=== PATIENT | male | born 1940 | race Caucasian/White ===

== ENCOUNTER 2017-09-05 15:20 | Emergency (ER) | payer MEDICARE, SELFPAY ==
[2017-09-05 15:21] VITALS: BP 136/54; PULSE 68; RESP 18; TEMP 36.6; O2SAT 96; BMI 28.4
--- NOTE | 2017-09-05 15:52 | CT_ITS ---
STUDY: CT LEFT LOWER EXTREMITY WITHOUT CONTRAST (LEFT HIP). REASON FOR EXAM: Male, 76 years old. Trauma, fall 2 weeks ago with worsening left hip pain since that time. Unable to bear weight. History of prostate cancer, hypertension and cerebrovascular accident. RADIATION DOSAGE (If Supplied By Facility): CTDIvol = ( 27.62 ) mGy, DLP = ( 924.40 ) mGycm. Thank you Individualized dose optimization techniques were used for this CT.? TECHNIQUE: Thin slice helical CT acquisition through the left hip without IV contrast. Coronal and sagittal 2-D multiplanar reformatted images were saved to the PACS archive. COMPARISON: None. FINDINGS: Intrapelvic: There is mild thickening of the wall the urinary bladder with a submucosal fatty infiltration of the wall. This may reflect sequela from prior cystitis and may also reflect a component of detrusor muscle hypertrophy. The prostate is small. Normal-appearing seminal vesicles. There is no lymphadenopathy along the left pelvic sidewall. There is a small fat filled left internal hernia. There is circumferential calcification of the distal abdominal aorta, partially circumferential of the common iliac and extra iliac arteries. There are circumferential calcifications of the proximal femoral vessels. 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 Generalized osteopenia. No suspicious lesions of the left hemipelvis or hip. There are only minimal degenerative features of the left hip joint, very minimal marginal osteophytic lipping. There is a lucency traversing a portion of the superior surface of the subcapital left femoral neck. Multiple [place] images are saved to the PACS archive. This should be regarded with substantial suspicion for nondisplaced acute fracture. Pubic rami intact. Acetabulum intact. Left iliac crest and sacrum intact. 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 CT/Extremity Lower without Contra IMPRESSION: Suspected non-displaced fracture of the left femoral neck. Follow-up noncontrast MRI of the hip is recommended for confirmation of this finding. Electronically Signed: Sadi Spangler, at 16:46 EDT Tel , Service support ,
--- NOTE | 2017-09-05 17:48 | ED.VISSUMM ---
- ER Visit Summary Date of Service: 09/05/17 Chief Complaint: Possible hip fracture History of Present Illness: The patient is a 76 M presenting for evaluation due to concern for possible hip fracture. Patient suffered a twisting injury 2 weeks ago in the shower. He reports that he has been having pain in his left hip and leg over the course of the last 2 weeks especially worse with any sort of weightbearing activities. He denies any other injuries. Patient had an x-ray at the urgent care today that showed concern for a possible nondisplaced femoral neck fracture and was sent to the emergency department. Physical Examination: Physical exam unremarkable except for examination of the patient's left lower extremity. Patient has normal range of motion of the foot ankle and knee. He actually has normal range of motion of the hip without any pain, there is some pain with weightbearing and deep palpation of the hip. No evidence of deformity normal distal pulses normal distal sensation. Test Results: CT of the hip demonstrates a possible nondisplaced left femoral neck fracture Emergency Department Course and Treatment: Patient presented due to concern for fracture. CT shows still concerned but no obvious confirmation of a nondisplaced femoral neck fracture. I discussed patient's case with Dr. Denton Mejía who recommended the patient be discharged on a walker and follow-up as an outpatient in the office. Patient was comfortable with this disposition. Disposition: Discharge Impression: 1. Nondisplaced left femoral neck fracture This note was generated with [employer] dictation software. It may contain incorrect words, spelling, and punctuation that were not noted in review of the chart prior to signing ED Disposition - Plan for ED Patient: Disposition: Home or Assisted Living Chief Complaint: Lower Extremity Injury Diagnosis: Hip fracture Instructions: Hip Fracture Surgery: Preparation Referrals: Denton Mejía MD [STAFF PHYSICIAN] - As soon as possible
--- NOTE | 2017-09-05 17:51 | ED.DCSUM_ITS ---
- ER Visit Summary Date of Service: 09/05/17 Chief Complaint: Possible hip fracture History of Present Illness: The patient is a 76 M presenting for evaluation due to concern for possible hip fracture. Patient suffered a twisting injury 2 weeks ago in the shower. He reports that he has been having pain in his left hip and leg over the course of the last 2 weeks especially worse with any sort of weightbearing activities. He denies any other injuries. Patient had an x- ray at the urgent care today that showed concern for a possible nondisplaced femoral neck fracture and was sent to the emergency department. Physical Examination: Physical exam unremarkable except for examination of the patient's left lower extremity. Patient has normal range of motion of the foot ankle and knee. He actually has normal range of motion of the hip without any pain, there is some pain with weightbearing and deep palpation of the hip. No evidence of deformity normal distal pulses normal distal sensation. Test Results: CT of the hip demonstrates a possible nondisplaced left femoral neck fracture Emergency Department Course and Treatment: Patient presented due to concern for fracture. CT shows still concerned but no obvious confirmation of a nondisplaced femoral neck fracture. I discussed patient's case with Dr. Denton Mejía who recommended the patient be discharged on a walker and follow-up as an outpatient in the office. Patient was comfortable with this disposition. Disposition: Discharge Impression: 1. Nondisplaced left femoral neck fracture This note was generated with [employer] dictation software. It may contain incorrect words, spelling, and punctuation that were not noted in review of the chart prior to signing ED Disposition - Plan for ED Patient: Disposition: Home or Assisted Living Chief Complaint: Lower Extremity Injury Diagnosis: Hip fracture Instructions: Hip Fracture Surgery: Preparation Referrals: Denton Mejía MD [STAFF PHYSICIAN] - As soon as possible
[2017-09-05 18:29] VITALS: BP 131/71; PULSE 59; RESP 18; O2SAT 96
== END 2017-09-05 18:31 | disposition home or self-care (01) ==
PROVIDERS: Emergency Provider Emergency Medicine; Family Provider Family Medicine; PCP Family Medicine
DX: S72.002A Fracture of unspecified part of neck of left femur, initial encounter for closed fracture (principal); W18.2XXA Fall in (into) shower or empty bathtub, initial encounter; Y93.9 Activity, unspecified; Y92.002 Bathroom of unspecified non-institutional (private) residence as the place of occurrence of the external cause; Y99.9 Unspecified external cause status; I10 Essential (primary) hypertension
CPT/HCPCS: 73700; 99282; A4216

== ENCOUNTER 2017-09-12 07:40 | Observation (INO) | payer MEDICARE, SELFPAY ==
--- NOTE | 2017-09-08 13:37 | EKG12_ITS ---
Test Reason : PRE OP Blood Pressure : / mmHG Vent. Rate : 065 BPM Atrial Rate : 065 BPM P-R Int : 178 ms QRS Dur : 082 ms QT Int : 432 ms P-R-T Axes : 074 057 069 degrees QTc Int : 449 ms Normal sinus rhythm Voltage criteria for left ventricular hypertrophy Abnormal ECG Confirmed by ALMA GRAHAM, MARIJA ([id number]), tape editor SLOANE PAGE ([id number]) on 09/12/2017 1:39:24 PM Referred By: Rojas Patrick Confirmed By:MARIJA MARQUEZ MD
[2017-09-08 15:10] LABS: Hematocrit 45.8 % (40-54); Hemoglobin 14.9 g/dl (13.0-16.5); Mean Corp Hgb Conc 32.5 g/gl (32-36); Mean Corpuscular Hgb 29.6 pg (27.0-32.0); Mean Corpuscular Volume 90.9 fL (80-94); Mean Platelet Vol. 9.7 fl (6.2-12.0); Platelet Count 188 K/mm3 (150-450); RBC Distribution Width CV 13.7 % (11.6-14.6); RBC Distribution Width SD 45.2 fl (35.1-43.9); Red Blood Count 5.04 M/mm3 (4.6-6.2)
[2017-09-08 15:15] LABS: Scan Indicated on CBC? Y/N NO
[2017-09-08 15:40] LABS: Anion Gap 7 (5-15); BUN 27 mg/dL (7-18); BUN/Creat Ratio 33.6 RATIO (10-20); Chloride 101 mmol/L (98-107); EST Glomerular Filtration Rate 99 mL/min (>60); Est Glom Filt Rate - Afr Amer 120 mL/min (>60); Glucose 108 mg/dL (74-106); Potassium 3.2 mmol/L (3.5-5.1); Sodium Level 138 mmol/L (136-145)
--- NOTE | 2017-09-08 16:09 | CASEMGMT ---
FREIDA CAIN PRE-OP PHONE CALL: FREIDA CAIN called and spoke with patient's regarding discharge needs after upcoming surgery. states that he has a walker and a cane and denies need for further DME. states they live in a one-story home. states that she does not think pt is set up for outpatient therapy yet, but that she is will be able to provide transportation once that is arranged. FREIDA CAIN will follow up with patient after surgery and will assist with discharge needs. Sue PIRES RN, CM
[2017-09-09 10:18] LABS: Thyroid Stim Hormone (TSH) 1.61 uIU/mL (0.358-3.74)
[2017-09-12] VITALS (16 sets, daily range): BP systolic 104–173; BP diastolic 55–90; PULSE 49–61; RESP 16–18; TEMP 36.2–36.7; O2SAT 94–99; BMI 28.8
[2017-09-12 06:59] LABS: Potassium 3.8 mmol/L (3.5-5.1)
--- NOTE | 2017-09-12 07:15 | RAD_ITS ---
STUDY: X-RAY - PELVIS AND LEFT HIP REASON FOR EXAM: Male, 76 years old. Left femoral neck fracture. Status post screw placement. TECHNIQUE: Radiological exam, left hip, 3 fluoroscopic views. COMPARISON: CT dated 09/05/2017 FINDINGS: Fluoroscopic guidance was provided during placement of left sided hip screws. The hardware is intact and alignment is satisfactory. RAD/Hip Min 2 Views (Portable) IMPRESSION: As above Electronically Signed: Rad Stark, at 16:56 EDT Tel , Service support ,
[2017-09-12] MEDS: Cefazolin 2 GM in 0.9% Normal Saline 100 ML IV (07:39)
--- NOTE | 2017-09-12 08:11 | OP.PCM_ITS ---
Report of Operation Date of Procedure: 09/12/17 Pre-Operative Diagnosis: Nondisplaced femoral neck fracture left Post-Operative Diagnosis: Same Surgery/Procedure Performed:: In situ percutaneous cannulated screw fixation left femoral neck Description of Surgical Findings:: Nondisplaced femoral neck fracture Type of Anesthesia:: Spinal Anesthesiologist: Lamberto Lewis Estimated Blood Loss (mL): 25 Fluids Replaced: See anesthesia report Description of Procedure: Implants: Henrietta 6.5 mm cannulated screw ?3 (120 mm, 110 mm, 100 mm with a 95 mm screw wasted) Surgical indications: Tylor is a 76-year-old male that sustained a nondisplaced femoral neck fracture on the left. After some deliberation as to the type of surgical management patient has elected and preferred to proceed with the above procedure Procedure description: Tylor was greeted in the preoperative area his left hip was marked with surgical marker. Preoperative antibiotics were administered. Patient was then taken to or [address] the stable condition. After adequate anesthesia was obtained and airway secured he was then placed in the fracture table supine position with a well-padded perineal post. Fluoroscopic imaging was used in a biplanar fashion to the confirm the presence of the fracture and also confirm the presence of that this fracture has remained nondisplaced. Once this was performed leg was prepped and draped in usual sterile fashion. Surgical timeout was performed and surgery was commenced. Small stab incision was then made in the lateral aspect of the thigh. The aiming device was utilized and 3 pins were then placed in a triangular fashion into the femoral neck and into subchondral bone. The position was confirmed on both AP and lateral. These were then measured separately and a drill was utilized and 3 appropriate length screws were placed. The most posterior superior screw in my opinion was slightly short this is a 95 mm therefore I did remove this in place 100 mm. Confirmation that these were not into the hip joint was performed with fluoroscopic imaging on the AP and lateral. Once this was complete the wound was irrigated IT band was approximated with 0 Vicryl subcutaneous tissue was closed with 0 Vicryl and surgical jose alberto were placed in the skin. Well-padded nonadherent dressings applied. Postoperatively: Patient will be weightbearing as tolerated with a walker for approximately 4-6 weeks. I am going to place him on observation and anticipate him being discharged home tomorrow - Complications None known - Admit VTE Documentation VTE Present on Admission: Yes VTE Mechan Device Prophylaxis: SCD's, Thigh High BRITTANY Jorgensen VTE Pharm Prophylaxis ordered?: Yes
[2017-09-12] MEDS: Lactated Ringers 1,000 ML 125 ML IV (12:09)
[2017-09-12] MEDS: Acetaminophen 500 MG Tablet 1000 MG PO (13:12)
--- NOTE | 2017-09-12 14:03 | CASEMGMT ---
Social Work Note RACHELE ALCALA updated this worker that she received message from pt's niece that she had concerns about pt returning home at discharge as pt's has cancer and may not be able to care for pt at home. RACHELE met with pt. Pt's Kaylee present and pt's son present as well. RACHELE introduced self and role at [facility]. Pt is alert and orientated x3. Pt's states pt is hard of hearing and his hearing aide batteries are dying. Pt's Kaylee answered most of the questions for assessment. Kaylee states that pt lives in a one story home with a tiny step to enter home. Kaylee states that pt was previously independent with ADLS. DME include walker. Kaylee states that she has a friend who is going to allow pt to borrow wheelchair but would like to know the cost of wheelchair and raised toilet seat. Kaylee states that she prefers [facility] for DME. RACHELE informed Kaylee that RN CM can assist in determine cost of wheelchair and raised toilet seat. Kaylee and pt confirm that the plan is for pt to return home at discharge and have outpatient therapy at [facility]. Kaylee states that she is unsure if pt is scheduled for outpatient therapy. RACHELE informed Kaylee that RN CM can confirm if pt is scheduled for outpatient therapy and if pt isn't scheduled, an appointment can be scheduled. Kaylee and pt states understanding. Kaylee states that pt has a son that will also be willing to help pt out at home. Substance Abuse Hx: Pt and Kaylee denied Mental Health Hx: Pt and Kaylee denied Plan: Pt to discharge home with outpatient therapy. RN CM to follow up with DME and confirming if outpatient therapy is scheduled. RACHELE and RN CM to follow along to assist with discharge planning. Lalita Barbosa ARMATURE WINDER, SEPARATIONS SCIENTIST
[2017-09-12] MEDS: Cefazolin 1 GM/50 ML BAG IV ×2 (15:27→22:33)
[2017-09-12] MEDS: Aspirin 325 MG Tablet PO (16:38)
[2017-09-12] MEDS: HYDROcodone Bitartrate/Apap 5/325 Tablet PO ×2 (16:41→22:33)
[2017-09-12] MEDS: Ipratropium 0.5 MG/2.5 ML SOLUTION INHALATION (19:01)
[2017-09-12] MEDS: Famotidine 20 MG Tablet PO (22:30)
[2017-09-12] MEDS: Atorvastatin Calcium 40 MG Tablet PO (22:30)
[2017-09-13 02:08] VITALS: BP 139/66; PULSE 58; RESP 16; TEMP 36.6; O2SAT 93
[2017-09-13 05:57] LABS: Hematocrit 41.3 % (40-54); Hemoglobin 13.6 g/dl (13.0-16.5); Mean Corp Hgb Conc 32.9 g/gl (32-36); Mean Corpuscular Hgb 30.3 pg (27.0-32.0); Mean Platelet Vol. 9.7 fl (6.2-12.0); Platelet Count 146 K/mm3 (150-450); RBC Distribution Width CV 13.5 % (11.6-14.6); RBC Distribution Width SD 44.3 fl (35.1-43.9); Red Blood Count 4.49 M/mm3 (4.6-6.2); White Blood Count 7.5 K/mm3 (4.4-11.0)
[2017-09-13] MEDS: HYDROcodone Bitartrate/Apap 5/325 Tablet PO (06:02)
[2017-09-13] MEDS: Levothyroxine 50 MCG Tablet PO (06:02)
[2017-09-13 06:05] LABS: Scan Indicated on CBC? Y/N NO
[2017-09-13 06:33] LABS: Anion Gap 7 (5-15); BUN 15 mg/dL (7-18); BUN/Creat Ratio 20.8 RATIO (10-20); Calcium,Total 8.3 mg/dL (8.5-10.1); Chloride 103 mmol/L (98-107); Creatinine, Serum 0.72 mg/dL (0.70-1.30); EST Glomerular Filtration Rate 112 mL/min (>60); Est Glom Filt Rate - Afr Amer 136 mL/min (>60); Estimated Creatinine Clearance 65.89 ml/min; Glucose 96 mg/dL (74-106); Potassium 3.7 mmol/L (3.5-5.1); Sodium Level 142 mmol/L (136-145)
[2017-09-13 07:11] VITALS: PULSE 66; RESP 18; O2SAT 93
[2017-09-13] MEDS: Ipratropium 0.5 MG/2.5 ML SOLUTION INHALATION (07:11)
--- NOTE | 2017-09-13 07:40 | PCM.PN.ORT ---
Subjective: Patient sitting at bedside, pain well-managed. Patient states he has had no significant pain since surgery. Feels he only has a small amount of aching in the groin. Denies chest pain, shortness breath, calf pain, nausea vomiting. No other complaints, ready for discharge home Objective: Dressings clean dry intact. Vital signs labs within normal limits. Negative signs and symptoms of DVT. Good motion of the left hip. Patient is afebrile neurovascular is otherwise intact. No respiratory distress - Physical Exam General: Alert, Oriented x3, Cooperative HEENT: PERRLA Oral: Moist Mucosa Neurological: Cranial nerves II-XII grossly intact Psych/Mental Status: Normal Affect, Alert and oriented to time, place, person, mood and affect Vital Signs Temp Pulse Resp BP Pulse Ox 97.8 F 58 L 16 139/66 H 93 09/13/17 02:08 09/13/17 02:08 09/13/17 02:08 09/13/17 02:08 09/13/17 02:08 Oxygen Flow Rate (L/min) 1 Oxygen Delivery Method Room Air Weight: 93.6 kg Body Mass Index (BMI) 28.8 Intake and Output for Last 24 Hours 09/11/17 09/12/17 09/13/17 23:59 23:59 23:59 Intake Total 1959 990 / 990 Output Total 200 / 200 Balance 1959 790 / 790 Laboratory Tests Past 24 Hrs 09/12/17 09/13/17 09/13/17 06:35 05:15 05:15 WBC 7.5 RBC 4.49 L Hgb 13.6 Hct 41.3 MCV 92.0 MCH 30.3 MCHC 32.9 RDW 13.5 RDW Differential 44.3 H Plt Count 146 L MPV 9.7 Sodium 142 Potassium 3.7 Chloride 103 Carbon Dioxide 32.0 Anion Gap 7 BUN 15 Creatinine 0.72 Estim Creat Clear Calc 65.89 Est GFR (MDRD) Af Amer 136 Est GFR (MDRD) Non-Af 112 BUN/Creatinine Ratio 20.8 H Glucose 96 Calcium 8.3 L Blood Type A POSITIVE Antibody Screen NEGATIVE Medical Necessity - Tobacco Use Smoking Status: Former smoker Tobacco Use: Cigarettes Assessment/Plan All Active Problems (Last Updated 06/09/17 @ 10:19 by Gloria Boles) Prostate CA (Acute) Stroke (Acute) FREEDMAN (dyspnea on exertion) (Acute) Hoarseness (Acute) left vocal cord paralysis (Acute) Status post percutaneous pinning of a nondisplaced left femoral neck fracture Plan 1. Discontinue Vicodin. Will continue Tylenol extra strength 1000 mg q. 8, Ultram 50 mg 1 or 2 p.o. every 6 hours severe pain. 2. Begin physical therapy today. Weight-bear as tolerated with walker. 3. Aspirin 325 mg 1 p.o. every 12 hours ?30 days for postop DVT prophylaxis 4. Follow-up with Dr. Patrick as scheduled 5. Discharge home today, and continue physical therapy at [facility] [place]
--- NOTE | 2017-09-13 07:50 | PCM.DC.ORTHO ---
Discharge Diet: No Restrictions Discharge Activity: May Not Drive, May Shower, Use Walker May shower in (days): 3 Ice area for (Minutes): 20 - Every hour while awake. Weight Bearing Status: Weight bearing as tolerated Keep extremity elevated above heart level: Operative Extremity Call your doctor if your incision/area has: Continuous Slow Oozing, Sudden Increased Bleeding, Increased Pain/ Swelling, Increased Redness, Foul Smelling Discharge Call your doctor if you observe: Fever of 101 or Higher, Coldness, Increased Pain, Numbness or Tingling, Change in Color, Calf discomfort Allergies/Adverse Reactions: Allergies aspirin [From Percodan] Allergy (Verified 09/09/17 08:39) Other oxycodone [From Percodan] Allergy (Verified 09/09/17 08:39) Other Medications to take at Discharge albuterol sulfate HFA 90 mcg/actuation aerosol inhaler 2 puff INHALATION Q6H PRN 06/09/17 amlodipine 10 mg tablet 10 mg PO QDAY 90 Days #90 tab 06/09/17 atenolol 50 mg tablet 50 mg PO QDAY 90 Days #90 tab 06/09/17 atorvastatin 40 mg tablet 40 mg PO QDAY 06/09/17 hydrochlorothiazide 25 mg tablet 25 mg PO QDAY 06/09/17 levothyroxine 50 mcg tablet 50 mcg PO QDAY 90 Days #90 tab 06/09/17 nitroglycerin 0.3 mg sublingual tablet 0.3 mg SUBLINGUAL Q5-15M PRN 06/09/17 potassium chloride ER 20 mEq tablet,extended release(part/cryst) 20 meq PO QDAY 90 Days #90 tab 06/09/17 ranitidine 150 mg tablet 150 mg PO Q12H tab 06/09/17 spironolactone 25 mg tablet 25 mg PO QDAY 90 Days #90 tab 06/09/17 Tiotropium [place] [Spiriva] 18 mcg IH DAILY 09/09/17 Acetaminophen [Tylenol] 1,000 mg PO Q8 #90 tab 09/13/17 Aspirin 325 mg PO BIDCM #60 tab 09/13/17 traMADol [Ultram] 100 mg PO Q6H PRN PRN 7 Days #90 tab 09/13/17 The following prescriptions were given: traMADol [Ultram] 100 mg PO Q6H PRN PRN 7 Days #90 tab PRN Reason: Moderate Pain (4-5/10) Acetaminophen [Tylenol] 1,000 mg PO Q8 #90 tab Aspirin 325 mg PO BIDCM #60 tab Primary Care Physician: Shayne Moncada MD [Primary Care Provider] - Test Results: Test results from this visit will be discussed in further detail at your follow-up appointment, if applicable. Please Follow Up With: Rojas Patrick, DO When: see pink sheet
[2017-09-13 08:00] VITALS: BP 131/68; PULSE 57; RESP 18; TEMP 37.2; O2SAT 97
[2017-09-13] MEDS: Famotidine 20 MG Tablet PO (08:54)
[2017-09-13] MEDS: Spironolactone 25 MG Tablet PO (08:54)
[2017-09-13] MEDS: Atenolol 50 MG Tablet PO (08:54)
[2017-09-13] MEDS: amLODIPine 10 MG Tablet PO (08:54)
[2017-09-13] MEDS: Aspirin 325 MG Tablet PO (08:55)
[2017-09-13] MEDS: hydroCHLOROthiazide 25 MG Tablet PO (08:56)
[2017-09-13] MEDS: traMADol 50 MG Tablet 100 MG PO (10:27)
[2017-09-13 11:31] VITALS: BP 138/70; PULSE 58; RESP 18; TEMP 36.8; O2SAT 98
== END 2017-09-13 11:38 | disposition home or self-care (01) ==
LOC: MS3 08:59 → SDC 08:59
PROVIDERS: Admitting Provider Orthopaedic Surgery; Family Provider Family Medicine; PCP Family Medicine; Visit Provider Orthopaedic Surgery
PROC: (CPT 27235; principal; 2017-09-12 06:45)
DX: S72.002A Fracture of unspecified part of neck of left femur, initial encounter for closed fracture (principal); W18.40XA Slipping, tripping and stumbling without falling, unspecified, initial encounter; Y93.E1 Activity, personal bathing and showering; Y92.9 Unspecified place or not applicable; Z87.891 Personal history of nicotine dependence; Z79.899 Other long term (current) drug therapy; Z79.82 Long term (current) use of aspirin; M19.90 Unspecified osteoarthritis, unspecified site; I25.10 Atherosclerotic heart disease of native coronary artery without angina pectoris; H91.90 Unspecified hearing loss, unspecified ear; I10 Essential (primary) hypertension; E78.00 Pure hypercholesterolemia, unspecified; G47.30 Sleep apnea, unspecified; Z86.711 Personal history of pulmonary embolism; Z95.1 Presence of aortocoronary bypass graft
CPT/HCPCS: 01220; 27235; 36415; 73501; 73502; 76000; 80048; 84132; 84443; 85027; 86850; 86900; 93005; 94640; 96361; 96365; 96366; 97162; 97165; 99218; C1713; J7120; G0378; G0379

== ENCOUNTER → 2018-01-26 09:13 | Outpatient (CLI) | payer MEDICARE, SELFPAY ==
[2018-01-12 14:15] VITALS: BMI 28.8
[2018-01-26 09:52] VITALS: PULSE 62; PULSE 68; PULSE 72; PULSE 81; PULSE 85; PULSE 90; PULSE 91; PULSE 92; O2SAT 91; O2SAT 92; O2SAT 94; O2SAT 96; O2SAT 97
--- NOTE | 2018-01-27 10:27 | PCM.PSN.6M ---
PSN 6 Minute Walk Test - 6 Minute Walk Test 6 Minute Walk Test: 6 Minute Walk Test PSN:6-Minute Walk Test Start: 01/26/18 09:51 Freq: Status: Active Protocol: [id number] Document 01/26/18 09:52 TAYLOR (Rec: 01/26/18 09:57 TAYLOR [id number]) 6 Minute Walk Test Date Performed 01/26/18 Time Performed 09:30 Height 5 ft 11 in Weight: 200 lb Weight in Pounds 200.[address]: Davide Riley Assistive device used: Cane Pre-test Oxygen Delivery Method Room Air Pulse Ox (%) 97 Pulse Rate (60-100 beats/min) 62 Dyspnea David Scale (0-10) 0 Exertion David Scale (6-20) 6 1st minute Oxygen Delivery Method Room Air Pulse Ox (%) 96 Pulse Rate (60-100 beats/min) 72 2nd minute Oxygen Delivery Method Room Air Pulse Ox (%) 94 Pulse Rate (60-100 beats/min) 81 3rd minute Oxygen Delivery Method Room Air Pulse Ox (%) 92 Pulse Rate (60-100 beats/min) 85 4th minute Oxygen Delivery Method Room Air Pulse Ox (%) 91 Pulse Rate (60-100 beats/min) 90 5th minute Oxygen Delivery Method Room Air Pulse Ox (%) 91 Pulse Rate (60-100 beats/min) 91 6th minute Oxygen Delivery Method Room Air Pulse Ox (%) 91 Pulse Rate (60-100 beats/min) 92 Dyspnea David Scale (0-10) 4 Exertion David Scale (6-20) 16 Post-test Oxygen Delivery Method Room Air Pulse Ox (%) 97 Pulse Rate (60-100 beats/min) 68 Full Laps Walked 12 Partial Lap, Number of Tiles Walked 20 Total Distance Walked (ft) 728 - Interpretation Interpretation: The patient ambulated 720 feet over the course of 6 minutes beginning on room air with use of a cane. Pretesting oxygen saturation was noted to be 97% on room air. With ambulation, the lynne oxygen saturation was 91%. This represents a significant exertional oxygen desaturation. - Recommendations Recommendations: There is no indication for the use of supplemental oxygen at this time. However, close interval follow-up is recommended, given the degree of oxygen desaturation noted during this study.
== END ==
PROVIDERS: Family Provider Family Medicine; PCP Family Medicine; Referring Provider Nurse Practitioner Acute Care; Visit Provider Nurse Practitioner Acute Care
DX: R06.09 Other forms of dyspnea (principal)
CPT/HCPCS: 94618

== ENCOUNTER → 2018-02-01 11:04 | Outpatient (CLI) | payer MEDICARE, SELFPAY ==
[2018-01-12 14:15] VITALS: BMI 28.8
--- NOTE | 2018-02-01 14:33 | PFTCOMP ---
COMPLETE PULMONARY FUNCTION TEST INTERPRETATION Brief HPI: Patient is a 76 year old male, currently under the care of myself, who presents to [facility] for complete pulmonary function tests secondary to diagnosis of dyspnea. Respiratory therapist reports good effort and reproducible results. Interpretation: Forced expiration spirometry shows a severe large airways obstructive ventilatory defect with an FEV1 of 48% predicted. There is no significant bronchodilator response by strict ATS criteria. Spirograms are of good quality and plateau slowly, indicating slowly emptying areas of the lungs. The respiratory flow volume loop shows decreased expiratory flow rates at all lung volumes consistent with airway obstruction. Lung volumes by body plethysmography show a decreased total lung capacity at 5.13 L, 77% predicted. FRC and RV are elevated out of proportion, but do not reach clinical significance by ATS criteria. Diffusion capacity by carbon monoxide is normal at 71% predicted. The airway resistance is elevated. No previous pulmonary function tests were available for review. 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
== END ==
PROVIDERS: Family Provider Family Medicine; PCP Family Medicine; Referring Provider Nurse Practitioner Acute Care; Visit Provider Nurse Practitioner Acute Care
DX: R06.09 Other forms of dyspnea (principal)
CPT/HCPCS: 94060; 94726; 94729

== ENCOUNTER → 2018-02-23 13:05 | Outpatient (CLI) | payer MEDICARE, SELFPAY ==
[2018-02-15 10:33] VITALS: BMI 28.8
--- NOTE | 2018-02-23 13:10 | ECHOD_ITS ---
Reason For Study: DYSPNEA/SOB Procedure This was a 2D Doppler, Color Flow transthoracic echocardiogram. The study was technically difficult. Exam performed in department. Left Ventricle Normal LV size. Left ventricular systolic function is normal. The estimated ejection fraction is 55 %. Transmitral diastolic flow velocities suggest moderate (stage 2) diastolic dysfunction (pseudonormal pattern). No regional wall motion abnormalities noted. Right Ventricle Normal RV size. Normal systolic function. Atria The left atrium is mildly enlarged. Normal right atrium. No doppler evidence for ASD. Mitral Valve There is mild mitral annular calcification. Normal mitral valve. Trivial mitral valve insufficiency. Tricuspid Valve Normal tricuspid valve. Trivial tricuspid valve insufficiency. Right ventricular systolic pressure estimated to be 29 mmHg. Aortic Valve Trisinus/trileaflet aortic valve. Normal aortic valve. Pulmonic Valve The pulmonic valve is not well visualized. Great Vessels Normal sized aortic root. Pericardium/Pleural No pericardial effusion. MMode/2D Measurements & Calculations LVIDd: 4.8 cm IVSd: 1.3 cm Ao root diam: 3.6 cm LVIDs: 3.2 cm LVPWd: 1.0 cm RVDd: 3.7 cm FS: 32.3 % LAV(MOD-bp): 58.7 ml LVAd ap4: 31.5 cm2 SV(MOD-sp4): 58.4 ml LAV(MOD-bp) Indexed: 27.3 ml/m2 EDV(MOD-sp4): 101.6 ml LAV(MOD-sp2): 62.1 ml EDV(sp4-el): 107.5 ml LAV(MOD-sp4): 52.9 ml LVAs ap4: 18.4 cm2 ESV(MOD-sp4): 43.2 ml ESV(sp4-el): 43.9 ml EF(MOD-sp4): 57.5 % EF(sp4-el): 59.2 % SV(sp4-el): 63.6 ml LA A4 area: 19.4 cm2 LA dimension(2D): 4.5 cm RA A4 area: 10.5 cm2 Time Measurements MV dec time: 0.27 sec Doppler Measurements & Calculations MV E max dung: 84.5 cm/sec Lat Peak E' Dung: 8.8 cm/sec Med Peak E' Dung: 7.2 cm/sec MV A max dung: 78.8 cm/sec E/E' lat: 9.6 E/E' med: 11.7 MV E/A: 1.1 Ao V2 max: 113.2 cm/sec LV V1 max: 108.8 cm/sec PA V2 max: 102.2 cm/sec Ao max P.1 mmHg LV V1 max P.7 mmHg PI end-d dung: 105.1 cm/sec TR max dung: 254.4 cm/sec TR max P.9 mmHg Interpretation Summary The study was technically difficult. Left ventricular systolic function is normal. The estimated ejection fraction is 55 %. The left atrium is mildly enlarged. There is mild mitral annular calcification. Trivial mitral valve insufficiency. Trivial tricuspid valve insufficiency. Right ventricular systolic pressure estimated to be 29 mmHg. Transmitral diastolic flow velocities suggest diastolic dysfunction (pseudonormal pattern). Ordering Physician: Shanon Crooks Referring Physician: DUNCAN ZAIDI Performed By: Alejandra Tierney RDCS
--- OUTSIDE RECORDS SUMMARY | 2018-04-30 06:05 | XMS RPT_ITS ---
:1940 Author Organization OHIP Support Name Relationship Address Phone MARITO PEDERSEN Unavailable [address] + [place] [address] R Unavailable Unavailable Unavailable PEDERSEN, MARITO Unavailable [address] + [place] [address] R Unavailable Unavailable Unavailable PEDERSEN, MARITO Unavailable [address] + [place] [address] R Unavailable Unavailable Unavailable PEDERSEN, MARITO Unavailable [address] + [place] [address] R Unavailable Unavailable Unavailable PEDERSEN, MARITO Unavailable [address] + [place] [address] R Unavailable Unavailable Unavailable PEDERSEN, MARITO Unavailable [address] + [place] [address] R Unavailable Unavailable Unavailable PEDERSEN, MARITO Unavailable [address] + [place] [address] R Unavailable Unavailable Unavailable PEDERSEN, MARITO Unavailable [address] + [place] [address] R Unavailable Unavailable Unavailable PEDERSEN, MARITO Unavailable [address] + [place] [address] R Unavailable Unavailable Unavailable PEDERSEN, MARITO Unavailable [address] + [place] [address] R Unavailable Unavailable Unavailable PEDERSEN, MARITO Unavailable [address] + [place] [address] R Unavailable Unavailable Unavailable PEDERSEN, MARITO Unavailable [address] + [place] [address] R Unavailable Unavailable Unavailable Care Team Providers Name Role Phone PADDY ZAIDI Attending Unavailable JENNIFER WILCOX (JI-Con) Referring Unavailable Daksha, Shanon Attending Unavailable Crooks, Shanon Referring Unavailable Shanetaelizabeth, Duncan Primary Care Unavailable Crooks, Shanon Attending Unavailable Crooks, Shanon Referring Unavailable Shanetaelizabeth, Duncan Primary Care Unavailable Jose Zapata D.O. Attending Unavailable Crooks, Shanon Referring Unavailable Crooks, Shanon Attending Unavailable Duncan Zaidi Referring Unavailable Davide Riley Attending Unavailable Crooks, Shanon Referring Unavailable Crooks, Shanon Attending Unavailable Crooks, Shanon Referring Unavailable Kontak, Duncan Primary Care Unavailable Gloria Boles Attending Unavailable Crooks, Shanon Attending Unavailable Shanetaelizabeth, Duncan Referring Unavailable Kontak, Duncan Primary Care Unavailable Lex Contreras Attending Unavailable Rojas Patrick Attending Unavailable Rojas Patrick Referring Unavailable Shanetaelizabeth, Duncan Primary Care Unavailable Yvon Medrano Consulting Unavailable Rojas Patrick Admitting Unavailable Lito Marquez Attending Unavailable Rojas Patrick Referring Unavailable Shanon Crooks Attending Unavailable Coral, Duncan Referring Unavailable PROBLEMS PROBLEMS DATE TYPE CONDITION / CODE ATTENDING STATUS SOURCE 02/23/2018 Unknown R06.09 - Other forms Crooks, Active [place] of dyspnea / [facility] R06.09(ICD-10) Hospital Repository 01/12/2018 Unknown Z23 - Encounter for Daksha, Active [place] immunization / [facility] Z23(ICD-10) Hospital Repository 09/13/2017 Unknown G89.18 - Other acute Rojas Patrick Active [place] postprocedural pain / [facility] G89.18(ICD-10) Hospital Repository 10/19/2017 Unknown R94.31 - Abnormal [place], Active [place] electrocardiogram [facility] [ECG] [EKG] / Hospital R94.31(ICD-10) Repository 10/19/2017 Unknown 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[place], 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 / I25.10(ICD-10) 10/19/2017 Unknown I10 - Essential [place], Active [place] (primary) hypertension [facility] / I10(ICD-10) Hospital Repository 09/05/2017 Active Unspecified injury of NA Active [place] left lower leg, Clinic Main initial encounter / [place] S89.92XA(ICD-10) Repository PROCEDURES PROCEDURES No Procedure Records FoundRESULTS RESULTS ECHOCARDIOGRAM COMPLETE Observed: 02/23/2018 Status: F Source: [place] 8:13 PM [facility] REPOSITORY [facility] Cardiovascular Services [address] [place] [address] Echo Complete 02/23/18 1318 MR#: [id number] Acct: [id number] Name: ARTURO PEDERSEN Rep #: [id number] : 1940 77 From: Lito Marquez MD Attending Dr: Shanon Crooks EXTERNAL AUDITOR Status: REG CLI Ordering Dr: Shanon Crooks EXTERNAL AUDITOR-C Date: 02/23/18 Location: [facility] Sex: M C Admitted: Reason For Study: DYSPNEA/SOB Procedure This was a 2D Doppler, Color Flow transthoracic echocardiogram. The study was technically difficult. Exam performed in department. Left Ventricle Normal LV size. Left ventricular systolic function is normal. The estimated ejection fraction is 55 %. Transmitral diastolic flow velocities suggest moderate (stage 2) diastolic dysfunction (pseudonormal pattern). No regional wall motion abnormalities noted. Right Ventricle Normal RV size. Normal systolic function. Atria The left atrium is mildly enlarged. Normal right atrium. No doppler evidence for ASD. Mitral Valve There is mild mitral annular calcification. Normal mitral valve. Trivial mitral valve insufficiency. Tricuspid Valve Normal tricuspid valve. Trivial tricuspid valve insufficiency. Right ventricular systolic pressure estimated to be 29 mmHg. Aortic Valve Trisinus/trileaflet aortic valve. Normal aortic valve. Pulmonic Valve The pulmonic valve is not well visualized. Great Vessels Normal sized aortic root. Pericardium/Pleural No pericardial effusion. MMode/2D Measurements AND Calculations LVIDd: 4.8 cm IVSd: 1.3 cm Ao root diam: 3.6 cm LVIDs: 3.2 cm LVPWd: 1.0 cm RVDd: 3.7 cm FS: 32.3 % LAV(MOD-bp): 58.7 ml LVAd ap4: 31.5 cm2 SV(MOD-sp4): 58.4 ml LAV(MOD-bp) Indexed: 27.3 ml/m2 EDV(MOD-sp4): 101.6 ml LAV(MOD-sp2): 62.1 ml EDV(sp4-el): 107.5 ml LAV(MOD-sp4): 52.9 ml LVAs ap4: 18.4 cm2 ESV(MOD-sp4): 43.2 ml ESV(sp4-el): 43.9 ml EF(MOD-sp4): 57.5 % EF(sp4-el): 59.2 % SV(sp4-el): 63.6 ml LA A4 area: 19.4 cm2 LA dimension(2D): 4.5 cm RA A4 area: 10.5 cm2 Time Measurements MV dec time: 0.27 sec Doppler Measurements AND Calculations MV E max dung: 84.5 cm/sec Lat Peak E' Dung: 8.8 cm/sec Med Peak E' Dung: 7.2 cm/sec MV A max dung: 78.8 cm/sec E/E' lat: 9.6 E/E' med: 11.7 MV E/A: 1.1 Ao V2 max: 113.2 cm/sec LV V1 max: 108.8 cm/sec PA V2 max: 102.2 cm/sec Ao max P.1 mmHg LV V1 max P.7 mmHg PI end-d dung: 105.1 cm/sec TR max dung: 254.4 cm/sec TR max P.9 mmHg Interpretation Summary The study was technically difficult. Left ventricular systolic function is normal. The estimated ejection fraction is 55 %. The left atrium is mildly enlarged. There is mild mitral annular calcification. Trivial mitral valve insufficiency. Trivial tricuspid valve insufficiency. Right ventricular systolic pressure estimated to be 29 mmHg. Transmitral diastolic flow velocities suggest diastolic dysfunction (pseudonormal pattern). Ordering Physician: Shanon Crooks Referring Physician: DUNCAN ZAIDI Performed By: Alejandra Tierney RDCS 02/23/182012 Date Lito Marquez MD CC: Shanon Crooks; Duncan Zaidi MD Date Dictated: 02/23/18 1318 Date Transcribed: 02/23/182012 Home Office Claim Specialist: Signed PULMONARY VISIT REPORT Observed: 02/16/2018 Status: F [facility] [place] [facility] [place] [address] [place] [address] OFFICE VISIT Date of Service: 02/15/18 MR#: [id number] Acct: [id number] Name: ARTURO PEDERSEN Rep #: [id number] : 1940 Provider: Shanon Crooks Age/Sex: 77/M Location: [facility].PMW Status: Signed Assessment AND Plan 1. FREEDMAN (dyspnea on exertion) R06.09 Plan Unchanged, suspect Pulmonary Hypertension. Shortness of breath on exertion is unexplained by his PFTs, walking oximetry borderline. Plan to obtain an echocardiogram before follow-up with Dr. Riley which is scheduled for April 19, 2018. Obtain echo to evaluate for pulmonary hypertension. Patient has not followed up with cardiology in over 3 years. Education on PLM HTN diet provided. Orders Orders: 2. Stage 2 moderate COPD by GOLD classification J44.9 Plan Does not appear to be an exacerbation of COPD today. No need for prednisone or antibiotic. Continue current maintenance medication. No additional testing at this time. Contact the office for any new or worsening symptoms. An acute visit and typically be arranged within 1-2 days. Follow-up as previously scheduled. 3. Central sleep apnea G47.31 Plan Patient is using and benefiting from Pap therapy. No indication for titration study at this time. Continue to encourage weight loss. Contact the office for any new or worsening symptoms in the meantime. Follow-up as previously scheduled. HPI 1 M FU: Chief Complaint: Shortness of breath on exertion HPI Comments Details: This is a 77 year old M, currently under the care of Duncan Zaidi, here today to review test results. He is ambulatory, currently on room air and accompanied by his . He has not been in the ED or urgent care for respiratory illnesses since his last office visit. He is not required antibiotics or prednisone for a breathing problems. He is compliant with Pap therapy 8-10 hours every night. Denies any difficulties with it, has noticed a decrease in his need for naps. He has only one episode of nocturia nightly at this point. He is feeling more rested with use. He continues to experience shortness of breath on exertion. He reports occasional lower extremity edema, not daily. He denies any cough, sputum production or hemoptysis. Occasionally has some clear to white nasal drainage, most frequently occurs after eating. He denies any fever, chills or body aches. He admits that he is not watching his sodium intake. I personally reviewed the tests/images/tracings which showed: Complete Pulmonary Function test were preformed on February 01, 2018, and showed FVC of 51 % of predicted, FEV1 of 46 % of predicted, FEV1/FVC ratio of 64 %, TLC of 77 % of predicted, RV of 95 % of predicted, DLCO 71% predicted. The test was interpreted to be consistent with irreversible severe mixed ventilatory defect, with no preserved significant response to bronchodilators and a diffusing capacity. Pulmonary stress test was completed on January 26, 2018, and did not show a drop in saturation below 89%, which suggests no requirement of supplemental oxygen on ambulation at this time. The patient was able to eat on a total of 720 feet over the course of 6 minutes. Intake Vital Signs02/15/18 Body Mass Index (BMI) 28.8 02/15/18 Height 5 ft 11 in 02/15/18 Weight: 208 lb Intake Visit Reasons: 1 M Talent Acquisition Lead Required: No Accompanied by: Is patient in pain?: No Allergies aspirin [From Percodan] Allergy (Verified 02/15/18 10:24) Other oxycodone [From Percodan] Allergy (Verified 02/15/18 10:24) Other Medications amlodipine 10 mg tablet 10 mg PO QDAY 90 Days #90 tab 06/09/17 [History Confirmed 02/15/18] atenolol 50 mg tablet 50 mg PO QDAY 90 Days #90 tab 06/09/17 [History Confirmed 02/15/18] atorvastatin 40 mg tablet 40 mg PO QDAY 06/09/17 [History Confirmed 02/15/18] hydrochlorothiazide 25 mg tablet 25 mg PO QDAY 06/09/17 [History Confirmed 02/15/18] levothyroxine 50 mcg tablet 50 mcg PO QDAY 90 Days #90 tab 06/09/17 [History Confirmed 02/15/18] nitroglycerin 0.3 mg sublingual tablet 0.3 mg SUBLINGUAL Q5- 15M PRN 06/09/17 [History Confirmed 02/15/18] potassium chloride ER 20 mEq tablet,extended release(part/cryst) 20 meq PO QDAY 90 Days #90 tab 06/09/17 [History Confirmed 02/15/18] ranitidine 150 mg tablet 150 mg PO Q12H tab 06/09/17 [History Confirmed 02/15/18] spironolactone 25 mg tablet 25 mg PO QDAY 90 Days #90 tab 06/09/17 [History Confirmed 02/15/18] Acetaminophen [Tylenol] 1,000 mg PO Q8 #90 tab 09/13/17 [Rx Confirmed 02/15/18] Aspirin 325 mg PO BIDCM #60 tab 09/13/17 [Rx Confirmed 02/15/18] traMADol [Ultram] 100 mg PO Q6H PRN PRN 7 Days #90 tab 09/13/17 [Rx Confirmed 02/15/18] albuterol sulfate HFA 90 mcg/actuation aerosol inhaler 2 puff INHALATION Q4H PRN g 01/12/18 [History Confirmed 02/15/18] PFSH Medical History Prostate CA (Acute) Stroke (Acute) FREEDMAN (dyspnea on exertion) (Acute) Central sleep apnea (Chronic) Stage 2 moderate COPD by GOLD classification (Chronic) HTN (hypertension) (Chronic) Hoarseness (Acute) left vocal cord paralysis (Acute) Surgical History Cataract extraction status (Resolved) History of hip replacement (Resolved) History of open heart surgery (Resolved) Social History Smoking Status: Former smoker quit date: 02/08/92 pack-years: 37 alcohol intake: never substance use type: does not use Review of Systems Const CONSTITUTIONAL: Negative anorexia, body ache, chills, daytime sleepiness, fever(s), night sweats, oral thrush, stops breathing during sleep, weight loss, sleeping in chair, fatigue, weight loss, weight gain, frequent colds, seasonal allergies, other, headache(s) or orthopnea EETM Ear Nose Throat Mouth: Positive hearing normal and nasal discharge; negative hard of hearing, hoarseness, dry mouth in morning, change in vision, itchy eyes, eye pain, swallowing Difficulty, ear pain, nose bleed, headache(s), mouth pain, nasal congestion, sinus pain, sinus pressure, sore throat or other Cardio Cardiovascular: Positive edema Location: lower extremity; negative chest pain, chest pain at rest, chest pain with activity, irregular heart rhythm, shortness of breath when lying down, palpitations or other Resp Respiratory: Positive as per HPI, shortness of breath shortness of breath: Positive with activity and inhalers; negative pain with cough, wheezing, chest congestion, cough, chest tightness, pain on inspiration, increase use of rescue inhalers, snoring, apnea or other Gastro Gastrointestional: Negative bloody stools, change in appetite, difficulty swallowing, reflux, hematemesis, melena stool, loose stool, constipation or other Genitourinary: Positive nocturia; negative blood in urine, pain with urination or other Musc Musculoskeletal: Negative body pain, back pain, neck pain or other Skin/Breast Skin/Breast: Negative dry skin, itching, rash, unusual bruising, breast lump or other Neuro Neurological: Negative restless legs, confusion, weakness or other Psych Psychocological: Negative abnormal sleep pattern, anxiety, thoughts of hurting self/others, hopelessness or other Lymph Lymphatic: Negative easy bleeding, easy bruising, swollen lymph nodes or other Exam Const Constitutional: Positive conversant, cooperative, in no acute respiratory distress, healthy appearing, well developed, well nourished and good hygiene Head Head: Positive normocephalic and atraumatic; negative cyanosis of lips/distal nose Eyes Eye: Positive clear conjunctiva; negative nystagmus or scleral abnormality Ears Ear: Positive hearing normal and external ears normal; negative hard of hearing Nose Nose: Positive external nose normal and no nasal discharge; negative epistaxis Mouth Mouth: Positive oral mucosae normal and no lesions; negative malodorous breath or oral thrush present Neck Neck: Positive normal visual inspection, full ROM and trachea midline; negative lymphadenopathy, JVD or tender Chest Wall Chest: Positive normal inspection of the chest and symmetric chest movement; negative increased A/P diameter Resp lung sounds: Positive clear to auscultation, diminished, normal expiratory time and normal respiratory effort; negative wheezes, rhonchi, rales, dullness to percussion or wheeze present on forced exhalation Cardio Cardiac: Positive regular rate, regular rhythm, S1 normal and S2 normal GI GI: Positive normal to inspection; negative distended Genitourinary: Positive deferred Musc Musculoskeletal: Positive steady gait and ROM normal; negative kyphosis or scoliosis Skin Pulmonary Skin Exam: Positive intact; negative rash Pulses Pulse: Yes pulses normal x4 extremities Extremities Extremities: Yes capillary refill normal, No clubbing, No cyanosis, Yes edema Location: lower extremity location: Bilateral pitting trace Neuro Neurologic: Yes conversant, Yes no focal neuro deficits, Yes normal concentration, Yes understands questions, Yes cooperative, Yes normal cognition, Yes normal coordination, No tremor Lymph Lymphatic: No lymphadenopathy, No tenderness, No cervical adenopathy Psych Appearance: Positive grossly normal, eye contact and well kempt Mental Status: Positive mental status grossly normal Mood: Positive congruent mood Affect: Positive normal affect Coding Level of Care Code Off vis,est,level 4 Diagnoses FREEDMAN (dyspnea on exertion) R06.09 Stage 2 moderate COPD by GOLD classification J44.9 Central sleep apnea G47.31 02/16/18 1441 <Electronically signed by Shanon Crooks NP-C> Date Shanon Crooks NP-C Cosigner Signature: Date (if applicable) CC: Duncan Zaidi MD PULMONARY FUNCTION Observed: 02/02/2018 Status: F Source: [place] REPORT COMP 5:50 AM [facility] REPOSITORY [facility] Pulmonary Services/Neurology [address] [place] [address] [place] [address] MR#: [id number] Acct: [id number] Name: ARTURO PEDERSEN Rep #: [id number] : 1940 77 From: Davide Riley MD Referring Dr: Shanon Crooks NP Status: REG CLI Ordering Dr: Date: Location: PSN Sex: M C COMPLETE PULMONARY FUNCTION TEST INTERPRETATION Brief HPI: Patient is a 76 year old male, currently under the care of myself, who presents to [facility] for complete pulmonary function tests secondary to diagnosis of dyspnea. Respiratory therapist reports good effort and reproducible results. Interpretation: Forced expiration spirometry shows a severe large airways obstructive ventilatory defect with an FEV1 of 48% predicted. There is no significant bronchodilator response by strict ATS criteria. Spirograms are of good quality and plateau slowly, indicating slowly emptying areas of the lungs. The respiratory flow volume loop shows decreased expiratory flow rates at all lung volumes consistent with airway obstruction. Lung volumes by body plethysmography show a decreased total lung capacity at 5.13 L, 77% predicted. FRC and RV are elevated out of proportion, but do not reach clinical significance by ATS criteria. Diffusion capacity by carbon monoxide is normal at 71% predicted. The airway resistance is elevated. No previous pulmonary function tests were available for review. 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 02/02/18 0550 <Electronically signed by Davide Riley MD> Date Davide Riley MD CC: Davide Riley MD; Shanon Crooks; Duncan Zaidi MD Date Dictated: 02/01/18 1433 Date Transcribed: 02/01/18 143 Home Office Claim Specialist: NICOLE Signed 6 MINUTE WALK TEST Observed: 01/27/2018 Status: F Source: [place] 10:28 AM [facility] REPOSITORY [facility] Pulmonary Services/Neurology [address] [place] [id number] MR#: [id number] Acct: [id number] Name: ARTURO PEDERSEN Rep #: [id number] : 1940 77 From: Jose Zapata DO Referring Dr: Shanon Crooks NP Date: Ordering Dr: Sex: M C Location: PSN PSN 6 Minute Walk Test - 6 Minute Walk Test 6 Minute Walk Test: 6 Minute Walk Test PSN:6-Minute Walk Test Start: 01/26/18 09:51 Freq: Status: Active Protocol: RESP.6MINW Document 01/26/18 09:52 TAYLOR (Rec: 01/26/18 09:57 SUNSHINEON [id number]) 6 Minute Walk Test Date Performed 01/26/18 Time Performed 09:30 Height 5 ft 11 in Weight: 200 lb Weight in Pounds 200.[address]: Davide Riley Assistive device used: Cane Pre-test Oxygen Delivery Method Room Air Pulse Ox (%) 97 Pulse Rate (60-100 beats/min) 62 Dyspnea David Scale (0-10) 0 Exertion David Scale (6-20) 6 1st minute Oxygen Delivery Method Room Air Pulse Ox (%) 96 Pulse Rate (60-100 beats/min) 72 2nd minute Oxygen Delivery Method Room Air Pulse Ox (%) 94 Pulse Rate (60-100 beats/min) 81 3rd minute Oxygen Delivery Method Room Air Pulse Ox (%) 92 Pulse Rate (60-100 beats/min) 85 4th minute Oxygen Delivery Method Room Air Pulse Ox (%) 91 Pulse Rate (60-100 beats/min) 90 5th minute Oxygen Delivery Method Room Air Pulse Ox (%) 91 Pulse Rate (60-100 beats/min) 91 6th minute Oxygen Delivery Method Room Air Pulse Ox (%) 91 Pulse Rate (60-100 beats/min) 92 Dyspnea David Scale (0-10) 4 Exertion David Scale (6-20) 16 Post-test Oxygen Delivery Method Room Air Pulse Ox (%) 97 Pulse Rate (60-100 beats/min) 68 Full Laps Walked 12 Partial Lap, Number of Tiles Walked 20 Total Distance Walked (ft) 728 - Interpretation Interpretation: The patient ambulated 720 feet over the course of 6 minutes beginning on room air with use of a cane. Pretesting oxygen saturation was noted to be 97% on room air. With ambulation, the lynne oxygen saturation was 91%. This represents a significant exertional oxygen desaturation. - Recommendations Recommendations: There is no indication for the use of supplemental oxygen at this time. However, close interval follow-up is recommended, given the degree of oxygen desaturation noted during this study. 01/27/18 1028 <Electronically signed by Jose Zapata DO> Date Jose Zapata DO CC: Date Dictated: 01/27/18 1027 Date Transcribed: 01/27/181026 Home Office Claim Specialist: Jose Zapata DO Signed PULMONARY VISIT REPORT Observed: 01/13/2018 Status: F Source: [place] 2:04 PM [facility] REPOSITORY [facility] [place] [address] [place] [address] OFFICE VISIT Date of Service: 01/12/18 MR#: [id number] Acct: [id number] Name: ARTURO PEDERSEN Rep #: [id number] : 1940 Provider: Shanon Crooks Age/Sex: 77/M Location: [facility].PMW Status: Signed Assessment AND Plan 1. Stage 2 moderate COPD by GOLD classification J44.9 Plan Need to establish repeat PFTs to determine if COPD has progressed in the past 12+ months. No change in medications until PFTs can be reviewed. Given the patient's complaints of shortness of breath on exertion it is quite possible that he requires a step up in therapy, which would include treatment with a Lama/Laba inhaler. The patient conveys understanding and is agreeable with this plan. Annual influenza vaccination and Pneumovax 23 provided in the office today. Follow-up with myself in 1 month to discuss test results. Follow-up with Dr. Riley in 3 months to establish routine care. We will also obtain a pulmonary stress test to rule out any exertional hypoxia. Discussed with the patient that if exertional hypoxia is identified on the walking oximetry that supplemental oxygen will be ordered. 2. Central sleep apnea G47.31 Plan Patient reports good compliance with his CPAP. No compliance download available for review. We will continue to follow. Plan Detail Other Orders Orders: Other Medications New: Discontinued: Fluad 2017- 65yr up(PF)45 mcg(15 mcgx3)/0.545 mcg (0.5 mL) IM ONCE #1 0RF NS R06.09, Z23 mL intramuscular syringe (flu vac 2017 65up- [id number](PF)) Discontinued Reason: Office Medication has been Documented as given Follow Up 1 Month (CSM) 3 Months (BWA) HPI 6 M FU: Chief Complaint: Shortness of breath HPI Comments Details: This patient presents the office today to reestablish care. He is ambulatory, currently in room air and accompanied by his . He continues to experience shortness of breath with activity, and admits that some of it may be attributed to his weight gain. He denies any wheezing, chest tightness, chest pain or palpitations. He does have an occasional cough that is productive of white sputum. He admits to lower extremity edema. He is not currently on any specific diet and does not avoid salty foods. His states that he has a habit of eating late night snacks. The patient states that he does not have good sleep hygiene and admits to snacking around 3 or 4 AM before going to bed. He also states that he typically sleeps until 1 or 2 in the afternoon. Is not currently on any maintenance inhalers. He is using his albuterol rescue inhaler about once every 4 days. Unfortunately, he has not noticed that it decreases his shortness of breath at all. He has not added any [id number] medications to treat his symptoms. Intake Vital Signs01/12/18 Height 5 ft 11 in 01/12/18 Weight: 207 lb Intake Visit Reasons: 6 M FU [facility] [place] [employer] Accompanied by: Allergies aspirin [From Percodan] Allergy (Verified 01/12/18 14:16) Other oxycodone [From Percodan] Allergy (Verified 01/12/18 14:16) Other Medications amlodipine 10 mg tablet 10 mg PO QDAY 90 Days #90 tab 06/09/17 [History Confirmed 01/12/18] atenolol 50 mg tablet 50 mg PO QDAY 90 Days #90 tab 06/09/17 [History Confirmed 01/12/18] atorvastatin 40 mg tablet 40 mg PO QDAY 06/09/17 [History Confirmed 01/12/18] hydrochlorothiazide 25 mg tablet 25 mg PO QDAY 06/09/17 [History Confirmed 01/12/18] levothyroxine 50 mcg tablet 50 mcg PO QDAY 90 Days #90 tab 06/09/17 [History Confirmed 01/12/18] nitroglycerin 0.3 mg sublingual tablet 0.3 mg SUBLINGUAL Q5- 15M PRN 06/09/17 [History Confirmed 01/12/18] potassium chloride ER 20 mEq tablet,extended release(part/cryst) 20 meq PO QDAY 90 Days #90 tab 06/09/17 [History Confirmed 01/12/18] ranitidine 150 mg tablet 150 mg PO Q12H tab 06/09/17 [History Confirmed 01/12/18] spironolactone 25 mg tablet 25 mg PO QDAY 90 Days #90 tab 06/09/17 [History Confirmed 01/12/18] Acetaminophen [Tylenol] 1,000 mg PO Q8 #90 tab 09/13/17 [Rx Confirmed 01/12/18] Aspirin 325 mg PO BIDCM #60 tab 09/13/17 [Rx Confirmed 01/12/18] traMADol [Ultram] 100 mg PO Q6H PRN PRN 7 Days #90 tab 09/13/17 [Rx Confirmed 01/12/18] albuterol sulfate HFA 90 mcg/actuation aerosol inhaler 2 puff INHALATION Q4H PRN g 01/12/18 [History Confirmed 01/12/18] PFS Medical History Prostate CA (Acute) Stroke (Acute) FREEDMAN (dyspnea on exertion) (Acute) Central sleep apnea (Chronic) Stage 2 moderate COPD by GOLD classification (Chronic) HTN (hypertension) (Chronic) Hoarseness (Acute) left vocal cord paralysis (Acute) Surgical History Cataract extraction status (Resolved) History of hip replacement (Resolved) History of open heart surgery (Resolved) Social History Smoking Status: Former smoker quit date: 02/08/92 pack-years: 37 alcohol intake: never substance use type: does not use Review of Systems Const CONSTITUTIONAL: Positive weight gain; negative anorexia, body ache, chills, daytime sleepiness, fever(s), night sweats, oral thrush, stops breathing during sleep, weight loss, sleeping in chair, fatigue, weight loss, frequent colds, seasonal allergies, other, headache(s) or orthopnea EETM Ear Nose Throat Mouth: Positive hearing normal; negative hard of hearing, hoarseness, dry mouth in morning, change in vision, itchy eyes, eye pain, swallowing Difficulty, ear pain, nose bleed, headache(s), mouth pain, nasal congestion, nasal discharge, post nasal drip, sinus pain, sinus pressure, sore throat or other Cardio Cardiovascular: Negative chest pain, chest pain at rest, chest pain with activity, irregular heart rhythm, edema, shortness of breath when lying down, palpitations, murmur or other Resp Respiratory: Positive as per HPI, shortness of breath shortness of breath: Positive with activity and cough cough: Positive productive color: Positive thick and white; negative pain with cough, wheezing, chest congestion, chest tightness, pain on inspiration, inhalers, increase use of rescue inhalers, snoring, apnea or other Gastro Gastrointestional: Negative bloody stools, change in appetite, difficulty swallowing, reflux, hematemesis, melena stool, loose stool, constipation or other Genitourinary: Negative blood in urine, nocturia, pain with urination or other Musc Musculoskeletal: Negative body pain, back pain, neck pain or other Skin/Breast Skin/Breast: Negative dry skin, itching, rash, unusual bruising, breast lump or other Neuro Neurological: Negative restless legs, confusion, weakness or other Psych Psychocological: Negative abnormal sleep pattern, anxiety, thoughts of hurting self/others, hopelessness or other Lymph Lymphatic: Negative easy bleeding, easy bruising, swollen lymph nodes or other Exam Const Constitutional: Positive conversant, cooperative, in no acute respiratory distress, healthy appearing, well developed, well nourished and good hygiene Head Head: Positive normocephalic and atraumatic; negative cyanosis of lips/distal nose Eyes Eye: Positive clear conjunctiva; negative nystagmus or scleral abnormality Ears Ear: Positive hearing normal and external ears normal; negative hard of hearing Nose Nose: Positive external nose normal and no nasal discharge; negative epistaxis Mouth Mouth: Positive oral mucosae normal, no lesions, dentures and posterior oropharynx is adequate; negative post nasal drip, malodorous breath or oral thrush present Mallampati Score: I: Mallampati Score Neck Neck: Positive normal visual inspection, full ROM and trachea midline; negative lymphadenopathy, JVD or tender Chest Wall Chest: Positive normal inspection of the chest and symmetric chest movement; negative increased A/P diameter Resp lung sounds: Positive diminished, normal expiratory time and normal respiratory effort; negative wheezes, rhonchi, rales, dullness to percussion or wheeze present on forced exhalation Cardio Cardiac: Positive regular rate, regular rhythm, S1 normal and S2 normal; negative murmur GI GI: Positive normal to inspection; negative distended Genitourinary: Positive deferred Musc Musculoskeletal: Positive steady gait and ROM normal; negative kyphosis or scoliosis Skin Pulmonary Skin Exam: Positive intact; negative rash Pulses Pulse: Yes pulses normal x4 extremities Extremities Extremities: Yes capillary refill normal, No clubbing, No cyanosis, Yes edema Location: lower extremity location: Bilateral pitting +1 Neuro Neurologic: Yes conversant, Yes no focal neuro deficits, Yes normal concentration, Yes understands questions, Yes cooperative, Yes normal cognition, Yes normal coordination, No tremor Lymph Lymphatic: No lymphadenopathy, No tenderness, No cervical adenopathy Psych Appearance: Positive grossly normal, eye contact and well kempt Mental Status: Positive mental status grossly normal Mood: Positive congruent mood Affect: Positive normal affect Immunizations Fluad 2017- 65yr up(PF)45 mcg(15 mcgx3)/0.5 mL intramuscular syringe Performing Provider: GABE Maciel Administered by: Rosaura Cazares on 01/12/18 15:07 Dose Route Admin Location Lot Number Expiration Date NDC Public Relations Counselor 45 mcg IM Right Deltoid [id number] 06/06/18 56118-542-89 SEQIRUS VIS Given Date VIS Publication Date 01/12/18 09/13/14 Eligibility Eligibility Date Pneumovax 23 Performing Provider: GABE Maciel Administered by: Rosaura Cazares on 01/12/18 15:27 Dose Route Admin Location Lot Number Expiration Date NDC Public Relations Counselor 0.5 mL IM Right Deltoid [id number] 02/21/19 4136-4600-48 MERCK SHARP AND D VIS Given Date VIS Publication Date 01/12/18 09/13/14 Eligibility Eligibility Date Coding Level of Care Code Off vis,est,level 4 Diagnoses Stage 2 moderate COPD by GOLD classification J44.9 Central sleep apnea G47.31 01/13/18 1404 <Electronically signed by Shanon BERNAL> Date Shanon BERNAL Cosigner Signature: Date (if applicable) CC: Duncan Zaidi MD DISCHARGE INSTRUCTION Observed: 09/13/2017 Status: F Source: [place] 7:51 AM [facility] REPOSITORY [facility] Medical Records Department [address] [place] [address] Instructions for Home/Discharge Instructions 09/13/17 0750 MR#: [id number] Acct: [id number] Name: ARTURO PEDERSEN Rep #: [id number] : 1940 76 From: Yvon Medrano PA-C PCP: Duncan Zaidi MD Status: ADM MARICARMEN Discharge Diet: No Restrictions Discharge Activity: May Not Drive, May Shower, Use Walker May shower in (days): 3 Ice area for (Minutes): 20 - Every hour while awake. Weight Bearing Status: Weight bearing as tolerated Keep extremity elevated above heart level: Operative Extremity Call your doctor if your incision/area has: Continuous Slow Oozing, Sudden Increased Bleeding, Increased Pain/ Swelling, Increased Redness, Foul Smelling Discharge Call your doctor if you observe: Fever of 101 or Higher, Coldness, Increased Pain, Numbness or Tingling, Change in Color, Calf discomfort Allergies/Adverse Reactions: Allergies aspirin [From Percodan] Allergy (Verified 09/09/17 08:39) Other oxycodone [From Percodan] Allergy (Verified 09/09/17 08:39) Other Medications to take at Discharge albuterol sulfate HFA 90 mcg/actuation aerosol inhaler 2 puff INHALATION Q6H PRN 06/09/17 amlodipine 10 mg tablet 10 mg PO QDAY 90 Days #90 tab 06/09/17 atenolol 50 mg tablet 50 mg PO QDAY 90 Days #90 tab 06/09/17 atorvastatin 40 mg tablet 40 mg PO QDAY 06/09/17 hydrochlorothiazide 25 mg tablet 25 mg PO QDAY 06/09/17 levothyroxine 50 mcg tablet 50 mcg PO QDAY 90 Days #90 tab 06/09/17 nitroglycerin 0.3 mg sublingual tablet 0.3 mg SUBLINGUAL Q5- 15M PRN 06/09/17 potassium chloride ER 20 mEq tablet,extended release(part/cryst) 20 meq PO QDAY 90 Days #90 tab 06/09/17 ranitidine 150 mg tablet 150 mg PO Q12H tab 06/09/17 spironolactone 25 mg tablet 25 mg PO QDAY 90 Days #90 tab 06/09/17 Tiotropium [place] [Spiriva] 18 mcg IH DAILY 09/09/17 Acetaminophen [Tylenol] 1,000 mg PO Q8 #90 tab 09/13/17 Aspirin 325 mg PO BIDCM #60 tab 09/13/17 traMADol [Ultram] 100 mg PO Q6H PRN PRN 7 Days #90 tab 09/13/17 The following prescriptions were given: traMADol [Ultram] 100 mg PO Q6H PRN PRN 7 Days #90 tab PRN Reason: Moderate Pain (4-5/10) Acetaminophen [Tylenol] 1,000 mg PO Q8 #90 tab Aspirin 325 mg PO BIDCM #60 tab Primary Care Physician: Duncan Zaidi MD [Primary Care Provider] - Test Results: Test results from this visit will be discussed in further detail at your follow-up appointment, if applicable. Please Follow Up With: Rojas Patrick, DO When: see pink sheet 09/13/17 0751 <Electronically signed by Yvon Medrano PA-C> Date Yvon Medrano PA-C CC: Duncan Zaidi MD; Yvon WORKMAN CBC-COMPLETE BLOOD CNT Collected: 09/13/2017 Status: F Source: [place] NO DIFF 5:15 AM [facility] REPOSITORY TYPE CODE TESTS RESULT OUT OF RANGE REFERENCE UNITS LAB L100.1000 4.4-11.0 K/mm3 Normal WBC 7.5 LAB L100.1200 4.6-6.2 M/mm3 Low RBC 4.49 LAB L100.1300 13.0-16.5 g/dl Normal HGB 13.6 LAB L100.1400 40-54 % Normal HCT 41.3 LAB L100.1500 80-94 fL Normal MCV 92.0 LAB L100.1600 27.0-32.0 pg Normal MCH 30.3 LAB L100.1700 32-36 g/gl Normal MCHC 32.9 LAB L100.1810 11.6-14.6 % Normal RDW CV 13.5 LAB L100.1820 35.1-43.9 fl High RDW SD 44.3 LAB L100.1900 150-450 K/mm3 Low PLT 146 LAB L100.2000 6.2-12.0 fl Normal MPV 9.7 Performed By: #### L100.0500 #### [facility] [address] [place], [address] BASIC METABOLIC Collected: 09/13/2017 Status: F Source: [place] PROFILE (BMP) 5:15 AM [facility] REPOSITORY TYPE CODE TESTS RESULT OUT OF RANGE REFERENCE UNITS LAB L501.0100 74-106 mg/dL Normal GLU 96 Result Comment: Please note revised GLUCOSE reference range effective 2017. LAB L501.1000 7-18 mg/dL Normal BUN 15 LAB L501.1100 0.70-1.30 mg/dL Normal CREAT,SERUM 0.72 Result Comment: The validity of the calculated GFR AND GFRAA in patients over 70 years has not been determined. Clinical correlation is essential. LAB L501.1110 >60 mL/min Normal EST GFR 112 Result Comment: Non- GFR Calc LAB L501.1115 >60 mL/min Normal EST GFR - AA 136 Result Comment: GFR Calc LAB L501.1255 ml/min Normal Estimated CRCL 65.89 LAB L501.1300 10-20 RATIO High BUN/CRE 20.8 LAB L501.2200 8.5-10 mg/dL Low .1 CA 8.3 LAB L501.5300 136-14 mmol/L Normal 5 NA 142 LAB L501.5600 3.5-5. mmol/L Normal 1 K 3.7 LAB L501.5900 98-107 mmol/L Normal CL 103 LAB L501.6100 21.0-3 mmol/L Normal 2.0 CO2 32.0 LAB L501.6200 5-15 Normal GAP 7 Performed By: #### L500.2500 #### [facility] [address] [facility] [place], [address] 12 LEAD ELECTROCARDIOGRAM Observed: 09/12/2017 Status: F Source: [place] 1:39 PM [facility] REPOSITORY [facility] Cardiovascular Services [address] [place] [address] 12 Lead EKG 09/08/17 1352 MR#: [id number] Acct: [id number] Name: ARTURO PEDERSEN Rep #: [id number] : 1940 76 From: Lito Marquez MD Attending Dr: Rojas Patrick DO Status: ADM MARICARMEN Ordering Dr: Rojas Patrick DO Date: 09/08/17 Location: [facility] Sex: M C Admitted: 09/12/17 Test Reason : PRE OP Blood Pressure : / mmHG Vent. Rate : 065 BPM Atrial Rate : 065 BPM P-R Int : 178 ms QRS Dur : 082 ms QT Int : 432 ms P-R-T Axes : 074 057 069 degrees QTc Int : 449 ms Normal sinus rhythm Voltage criteria for left ventricular hypertrophy Abnormal ECG Confirmed by LITO MARQUEZ MD ([id number]), purchase request editor SLOANE MEJÍA ([id number]) on 09/12/2017 1:39:24 PM Referred By: Rojas Patrick Confirmed By:LITO MARQUEZ MD 09/12/17 1339 Date Lito Marquez MD CC: Rojas Patrick DO; Duncan Zaidi MD Signed OPERATIVE REPORT Observed: 09/12/2017 Status: F Source: [place] 8:41 AM [facility] REPOSITORY [facility] Medical Records Department [address] [place] [address] Operative Report 09/12/17 0747 MR#: [id number] Acct: [id number] Name: ARTURO PEDERSEN Rep #: [id number] : 1940 76 From: Rojas Patrick DO PCP: Duncan Zaidi MD Status: REG [facility] Location: [place] [address] Report of Operation Date of Procedure: 09/12/17 Pre-Operative Diagnosis: Nondisplaced femoral neck fracture left Post-Operative Diagnosis: Same Surgery/Procedure Performed:: In situ percutaneous cannulated screw fixation left femoral neck Description of Surgical Findings:: Nondisplaced femoral neck fracture Type of Anesthesia:: Spinal Anesthesiologist: Lamberto Lewis Estimated Blood Loss (mL): 25 Fluids Replaced: See anesthesia report Description of Procedure: Implants: Garfield 6.5 mm cannulated screw 3 (120 mm, 110 mm, 100 mm with a 95 mm screw wasted) Surgical indications: Arturo is a 76-year-old male that sustained a nondisplaced femoral neck fracture on the left. After some deliberation as to the type of surgical management patient has elected and preferred to proceed with the above procedure Procedure description: Arturo was greeted in the preoperative area his left hip was marked with surgical marker. Preoperative antibiotics were administered. Patient was then taken to or [address] the stable condition. After adequate anesthesia was obtained and airway secured he was then placed in the fracture table supine position with a well-padded perineal post. Fluoroscopic imaging was used in a biplanar fashion to the confirm the presence of the fracture and also confirm the presence of that this fracture has remained nondisplaced. Once this was performed leg was prepped and draped in usual sterile fashion. Surgical timeout was performed and surgery was commenced. Small stab incision was then made in the lateral aspect of the thigh. The aiming device was utilized and 3 pins were then placed in a triangular fashion into the femoral neck and into subchondral bone. The position was confirmed on both AP and lateral. These were then measured separately and a drill was utilized and 3 appropriate length screws were placed. The most posterior superior screw in my opinion was slightly short this is a 95 mm therefore I did remove this in place 100 mm. Confirmation that these were not into the hip joint was performed with fluoroscopic imaging on the AP and lateral. Once this was complete the wound was irrigated IT band was approximated with 0 Vicryl subcutaneous tissue was closed with 0 Vicryl and surgical jose alberto were placed in the skin. Well-padded nonadherent dressings applied. Postoperatively: Patient will be weightbearing as tolerated with a walker for approximately 4-6 weeks. I am going to place him on observation and anticipate him being discharged home tomorrow - Complications None known - Admit VTE Documentation VTE Present on Admission: Yes VTE Mechan Device Prophylaxis: SCD's, Thigh High BRITTANY Hose VTE Pharm Prophylaxis ordered?: Yes 09/12/17 0841 <Electronically signed by Rojas Patrick DO> Date Rojas Patrick DO CC: Rojas Patrick DO; Duncan Zaidi MD; Yvon WORKMAN Signed POTASSIUM Collected: 09/12/2017 Status: F Source: [place] 6:35 AM [facility] REPOSITORY TYPE CODE TESTS RESULT OUT OF RANGE REFERENCE UNITS LAB L501.5600 3.5-5.1 mmol/L Normal K 3.8 Performed By: #### L501.5600, B101.7450 #### [facility] [address] [place], [address] TYPE AND SCREEN Collected: 09/12/2017 Status: F Source: [place] 6:35 AM [facility] REPOSITORY Order Comment: Reason for Type AND Screen/Red Cells: SURGERY TYPE CODE TESTS RESULT OUT OF RANGE REFERENCE UNITS LAB B10.0800 A Normal BLOOD TYPE GEL POSITIVE LAB B100.4000 Normal Antibody NEGATIVE Screen Performed By: #### L501.5600, B101.7450 #### [facility] [address] [facility] [place], [address] HIP MIN 2 VIEWS Observed: 09/12/2017 Status: F Source: [place] (PORTABLE) 2:50 AM [facility] REPOSITORY [facility] Imaging Services [address] [facility] [place] [address] Hip Min 2 Views (Portable) MR#: [id number] Acct: [id number] Name: ARTURO PEDERSEN Rep #: [id number] : 1940 M 76 From: Rad Stark MD PCP: Duncan Zaidi MD Status: ADM MARICARMEN Study: Hip Min 2 Views (Portable) Date of Exam: 09/12/17 Exam# [id number] Ordering Dr: Rojas Patrick DO STUDY: X-RAY - PELVIS AND LEFT HIP REASON FOR EXAM: Male, 76 years old. Left femoral neck fracture. Status post screw placement. TECHNIQUE: Radiological exam, left hip, 3 fluoroscopic views. COMPARISON: CT dated 09/05/2017 FINDINGS: Fluoroscopic guidance was provided during placement of left sided hip screws. The hardware is intact and alignment is satisfactory. RAD/Hip Min 2 Views (Portable) IMPRESSION: As above Electronically Signed: Rad Stark, at 16:56 EDT Tel , Service support , CC: Rojas Patrick DO; Duncan Zaidi MD Home Office Claim Specialist: Signed CBC-COMPLETE BLOOD CNT Collected: 09/08/2017 Status: F Source: [place] NO DIFF 1:24 PM [facility] REPOSITORY TYPE CODE TESTS RESULT OUT OF RANGE REFERENCE UNITS LAB L100.1000 4.4-11.0 K/mm3 Normal WBC 8.0 LAB L100.1200 4.6-6.2 M/mm3 Normal RBC 5.04 LAB L100.1300 13.0-16.5 g/dl Normal HGB 14.9 LAB L100.1400 40-54 % Normal HCT 45.8 LAB L100.1500 80-94 fL Normal MCV 90.9 LAB L100.1600 27.0-32.0 pg Normal MCH 29.6 LAB L100.1700 32-36 g/gl Normal MCHC 32.5 LAB L100.1810 11.6-14.6 % Normal RDW CV 13.7 LAB L100.1820 35.1-43.9 fl High RDW SD 45.2 LAB L100.1900 150-450 K/mm3 Normal PLT 188 LAB L100.2000 6.2-12.0 fl Normal MPV 9.7 Performed By: #### L100.0500 #### [facility] [address] [place], [place], [address] BASIC METABOLIC Collected: 09/08/2017 Status: F Source: [place] PROFILE (BMP) 1:24 PM [facility] REPOSITORY TYPE CODE TESTS RESULT OUT OF RANGE REFERENCE UNITS LAB L501.0100 74-106 mg/dL High GLU 108 Result Comment: Fasting Glucose result from 100 to 125 mg/dL suggests IMPAIRED HOMEOSTASIS per A.D.A. criteria. Please note revised GLUCOSE reference range effective 2017. LAB L501.1000 7-18 mg/dL High BUN 27 LAB L501.1100 0.70-1.30 mg/dL Normal CREAT,SERUM 0.80 Result Comment: The validity of the calculated GFR AND GFRAA in patients over 70 years has not been determined. Clinical correlation is essential. LAB L501.1110 >60 mL/min Normal EST GFR 99 Result Comment: Non- GFR Calc LAB L501.1115 >60 mL/min Normal EST GFR - AA 120 Result Comment: GFR Calc LAB L501.1300 10-20 RATIO High BUN/CRE 33.6 LAB L501.2200 8.5-10.1 mg/dL CA Normal 9.0 LAB L501.5300 136-145 mmol/L NA Normal 138 LAB L501.5600 3.5-5.1 mmol/L Low K 3.2 LAB L501.5900 98-107 mmol/L CL Normal 101 LAB L501.6100 21.0-32.0 mmol/L Normal CO2 30.0 LAB L501.6200 5-15 Normal GAP 7 Performed By: #### L500.2500, L501.9520 #### [facility] [address] [place], [address] THYROID STIM HORMONE Collected: 09/08/2017 Status: F Source: [place] (TSH) 1:24 PM [facility] REPOSITORY TYPE CODE TESTS RESULT OUT OF RANGE REFERENCE UNITS LAB L501.9520 0.358-3.74 uIU/mL Normal TSH 1.61 Performed By: #### L500.2500, L501.9520 #### [facility] [address] [place], [address] EMERGENCY DEPARTMENT Observed: 09/06/2017 Status: F Source: [place] SUMMARY 1:45 AM [facility] REPOSITORY [facility] Medical Records Department [address] [place] [address] Emergency Department Summary 09/05/17 1748 MR#: [id number] Acct: [id number] Name: ARTURO PEDERSEN Rep #: [id number] : 1940 76 From: Lex Contreras MD PCP: Duncan Zaidi MD Status: DEP ER - ER Visit Summary Date of Service: 09/05/17 Chief Complaint: Possible hip fracture History of Present Illness: The patient is a 76 M presenting for evaluation due to concern for possible hip fracture. Patient suffered a twisting injury 2 weeks ago in the shower. He reports that he has been having pain in his left hip and leg over the course of the last 2 weeks especially worse with any sort of weightbearing activities. He denies any other injuries. Patient had an x-ray at the urgent care today that showed concern for a possible nondisplaced femoral neck fracture and was sent to the emergency department. Physical Examination: Physical exam unremarkable except for examination of the patient's left lower extremity. Patient has normal range of motion of the foot ankle and knee. He actually has normal range of motion of the hip without any pain, there is some pain with weightbearing and deep palpation of the hip. No evidence of deformity normal distal pulses normal distal sensation. Test Results: CT of the hip demonstrates a possible nondisplaced left femoral neck fracture Emergency Department Course and Treatment: Patient presented due to concern for fracture. CT shows still concerned but no obvious confirmation of a nondisplaced femoral neck fracture. I discussed patient's case with Dr. Denton Mejía who recommended the patient be discharged on a walker and follow-up as an outpatient in the office. Patient was comfortable with this disposition. Disposition: Discharge Impression: 1. Nondisplaced left femoral neck fracture This note was generated with [employer] dictation software. It may contain incorrect words, spelling, and punctuation that were not noted in review of the chart prior to signing ED Disposition - Plan for ED Patient: Disposition: Home or Assisted Living Chief Complaint: Lower Extremity Injury Diagnosis: Hip fracture Instructions: Hip Fracture Surgery: Preparation Referrals: Denton Mejía MD [STAFF PHYSICIAN] - As soon as possible What to do if you have Problems For any increased pain, shortness of breath, bleeding, nausea or vomiting, chest pain, or any unexpected problems, contact your Primary Care Provider. Call [facility] ([phone]) or report to the closest Emergency Room. Call 911 if necessary. 09/06/17 0145 <Electronically signed by Lex Contreras MD> Date Lex Contreras MD Cosigner Signature (If Indicated): Date CC: Duncan Zaidi MD EXTREMITY LOWER Observed: 09/05/2017 Status: F Source: [place] WITHOUT CONTRA 3:53 PM [facility] REPOSITORY [facility] Imaging Services [address] [place] [address] Extremity Lower without Contra MR#: [id number] Acct: [id number] Name: ARTURO PEDERSEN Rep #: [id number] : 1940 76 From: Sadi Spangler MD PCP: Duncan Zaidi MD Status: REG ER Study: Extremity Lower without Contra Date of Exam: 09/05/17 Exam# [id number] Ordering Dr: Melyssa Moreira MD STUDY: CT LEFT LOWER EXTREMITY WITHOUT CONTRAST (LEFT HIP). REASON FOR EXAM: Male, 76 years old. Trauma, fall 2 weeks ago with worsening left hip pain since that time. Unable to bear weight. History of prostate cancer, hypertension and cerebrovascular accident. RADIATION DOSAGE (If Supplied By Facility): CTDIvol = ( 27.62 ) mGy, DLP = ( 924.40 ) mGycm. Thank you Individualized dose optimization techniques were used for this CT.? TECHNIQUE: Thin slice helical CT acquisition through the left hip without IV contrast. Coronal and sagittal 2-D multiplanar reformatted images were saved to the PACS archive. COMPARISON: None. FINDINGS: Intrapelvic: There is mild thickening of the wall the urinary bladder with a submucosal fatty infiltration of the wall. This may reflect sequela from prior cystitis and may also reflect a component of detrusor muscle hypertrophy. The prostate is small. Normal-appearing seminal vesicles. There is no lymphadenopathy along the left pelvic sidewall. There is a small fat filled left internal hernia. There is circumferential calcification of the distal abdominal aorta, partially circumferential of the common iliac and extra iliac arteries. There are circumferential calcifications of the proximal femoral vessels. 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 Generalized osteopenia. No suspicious lesions of the left hemipelvis or hip. There are only minimal degenerative features of the left hip joint, very minimal marginal osteophytic lipping. There is a lucency traversing a portion of the superior surface of the subcapital left femoral neck. Multiple [place] images are saved to the PACS archive. This should be regarded with substantial suspicion for nondisplaced acute fracture. Pubic rami intact. Acetabulum intact. Left iliac crest and sacrum intact. 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 CT/Extremity Lower without Contra IMPRESSION: Suspected non-displaced fracture of the left femoral neck. Follow-up noncontrast MRI of the hip is recommended for confirmation of this finding. Electronically Signed: Sadi Spangler, at 16:46 EDT Tel , Service support , CC: Melyssa Moreira MD; Duncan Zaidi MD Home Office Claim Specialist: Signed XR FEMUR 2V AP/LAT Observed: 09/05/2017 Status: F Source: [facility] 12:07 PM [facility] [place] REPOSITORY * * *Final Report* * * DATE OF EXAM: Sep 05 2017 12:07PM [id number] - XR FEMUR 2V AP/LAT LT / PROCEDURE REASON: Unspecified injury of left lower leg, initial encounter * * * * Physician Interpretation * * * * EXAMINATION: XR HIP 3V PELV+ AP/LAT LT, XR FEMUR 2V AP/LAT LT HISTORY: Unspecified injury of left lower leg, initial encounter . Patient/Technologist Provided History: pt states twisted left leg in shower 2 weeks ago pain is mostly anterior mid thigh area lucita. when he walks on leg. did not do another hip due to left hip ordered also. TECHNIQUE: XR HIP 3V PELV+ AP/LAT LT, XR FEMUR 2V AP/LAT LT Laterality: LEFT Number of different views (projections): 3 (accession [id number]), 2 (accession [id number]) COMPARISON: None RESULT: Lucent line extending through the cortex along the lateral aspect of the femoral neck, suspicious for nondisplaced fracture. No distal femur fracture. Osteophytes without joint space narrowing. The pelvis is intact. SI joints are maintained. Lower lumbar spine degenerative changes. Right total hip arthroplasty. Vascular calcifications. No other significant abnormality. IMPRESSION: Lucent line extending through the cortex along the lateral aspect of the femoral neck, suspicious for nondisplaced femoral neck fracture. Home Office Claim Specialist: PSCB Transcribe Date/Time: Sep 05 2017 1:06P Dictated by : ALCON CUI MD This examination was interpreted and the report reviewed and electronically signed by: ALCON CUI MD on Sep 05 2017 1:15PM EST [id number] XR HIP 3V PELV+ Observed: 09/05/2017 Status: F Source: [place] AP/LAT LT 12:07 PM [facility] REPOSITORY * * *Final Report* * * DATE OF EXAM: Sep 05 2017 12:07PM [id number] - XR HIP 3V PELV+ AP/LAT LT / PROCEDURE REASON: Unspecified injury of left lower leg, initial encounter * * * * Physician Interpretation * * * * EXAMINATION: XR HIP 3V PELV+ AP/LAT LT, XR FEMUR 2V AP/LAT LT HISTORY: Unspecified injury of left lower leg, initial encounter . Patient/Technologist Provided History: pt states twisted left leg in shower 2 weeks ago pain is mostly anterior mid thigh area lucita. when he walks on leg. did not do another hip due to left hip ordered also. TECHNIQUE: XR HIP 3V PELV+ AP/LAT LT, XR FEMUR 2V AP/LAT LT Laterality: LEFT Number of different views (projections): 3 (accession [id number]), 2 (accession [id number]) COMPARISON: None RESULT: Lucent line extending through the cortex along the lateral aspect of the femoral neck, suspicious for nondisplaced fracture. No distal femur fracture. Osteophytes without joint space narrowing. The pelvis is intact. SI joints are maintained. Lower lumbar spine degenerative changes. Right total hip arthroplasty. Vascular calcifications. No other significant abnormality. IMPRESSION: Lucent line extending through the cortex along the lateral aspect of the femoral neck, suspicious for nondisplaced femoral neck fracture. Home Office Claim Specialist: FATOUMATA Transcribe Date/Time: Sep 05 2017 1:06P Dictated by : ALCON CUI MD This examination was interpreted and the report reviewed and electronically signed by: ALCON CUI MD on Sep 05 2017 1:15PM EST [id number] PROGRESS Observed: 09/05/2017 Status: COMPLETED Source: [place] 11:54 AM [facility] REPOSITORY HNO ID: [id number] Author: Ruth Angulo (Rt) Amandeep Mcrae Service: (none) Author Type: Healthcare Sales Representative Type: Progress Notes Filed: 09/05/2017 12:05 PM Note Text: Radiology Service Progress Note PATIENT NAME: Arturo Pedersen DATE OF SERVICE: September 05, 2017 TIME: 11:54 AM PATIENT IDENTITY VERIFICATION COMPLETED USING TWO (2) METHODS: Patient confirmed name verbally and Date of . PATIENT GENDER DATA: Male PATIENT RELEVANT IMPLANT DATA REVIEWED: Not Applicable RADIOLOGY DEPARTMENT: General X-ray: Exam(s) Completed: Pelvis X-Ray: Pelvis with Hip Left Lower Extremity X-Ray(s): Femur, Left: PERIPHERAL IV DATA: Not applicable SIGNED BY: RT Deonte September 05, 2017 11:54 AM PROGRESS Observed: 09/05/2017 Status: COMPLETED Source: [place] 11:02 AM [facility] REPOSITORY HNO ID: [id number] Author: Jennifer Wilcox Service: (none) Author Type: Physician It Infrastructure Consultant Type: Progress Notes Filed: 09/05/2017 2:52 PM Note Text: 09/05/2017 Patient presents with: Musculoskeletal Problem: x 2 weeks left upper leg pain after fall SUBJECTIVE: This is a 76 year old that is here today for Complaint(s) of left upper leg injury x 2 weeks. States he twisted in the shower and slipped and all his weight went on his left foot jamming hte upper thigh. He did not fall on the hip. Pain radiates from the hip down the lateral and anterior proximal thigh. Worse with weight bearing. Denies worsening swelling, numbness/tingling, ecchymosis. He tried a couple tylenol the first day or 2. No pain at rest. Pain with any weight bearing. Using crutch to ambulate. . PAST MEDICAL HISTORY Diagnosis Date - CABG - CVA (cerebral infarction) 04/16/14 - Depression - GERD (gastroesophageal reflux disease) - Neuropathy (HCC) - Other and unspecified hyperlipidemia - Prostate cancer (HCC) - Unspecified essential hypertension ALLERGIES Percodan [Oxycodone-Aspirin] MEDICATIONS Current Outpatient Prescriptions: escitalopram oxalate (LEXAPRO) 20 mg tablet Take 1 tablet by mouth once daily. levothyroxine (SYNTHROID) 50 mcg tablet Take 1 tablet by mouth once daily (take on an empty stomach) hydroCHLOROthiazide (HYDRODIURIL, ESIDRIX) 25 mg tablet Take 1 tablet by mouth once daily. atenolol (TENORMIN) 50 mg tablet Take 1 tablet by mouth once daily. spironolactone (ALDACTONE) 25 mg tablet Take 1 tablet by mouth once daily. Potassium Bicarb-Citric Acid (KLOR-CON/EF) 25 mEq disintegrating tablet Take 1 tablet by mouth once daily. (Patient taking differently: Take 10 mEq by mouth once daily. ) atorvastatin (LIPITOR) 40 mg tablet Take 1 tablet by mouth once daily. nitroglycerin sublingual 0.3 mg SL tablet Dissolve 1 tablet under the tongue every 5 minutes as needed. ranitidine (ZANTAC) 150 mg ORAL tablet Take 1 tablet by mouth twice daily. VIKAS ASPIRIN 325 MG TAB Take one(1) tablet daily. No current facility-administered medications for this visit. SOCIAL HISTORY Social History Marital status: Spouse name: Years of education: Number of children: Social History Main Topics Smoking status: Former Smoker Packs/day: 2.00 Years: 25.00 Types: Cigarettes Quit date: 10/16/1992 Smokeless tobacco: Never Used Alcohol use: No Drug use: No Social History Narrative Lives with and adult son with mental handicap in their home. Performs in a [employer]. REVIEW OF SYSTEMS All other reviewed and negative other than HPI. OBJECTIVE: BP 118/68 Pulse 88 Temp 36.9 ?C (98.5 ?F) Resp 18 Wt 92.5 kg (204 lb) BMI 28.45 kg/m? APPEARANCE Well appearing, alert, in no acute distress, well-hydrated, well nourished. EXTREMITIES normal exam right hip. Left hip with mild TTP proximal and mid femoral shaft. Pain with internal rotation of left hip. No obvious edema. Distal LE pulses intact, equal JENNY. ASSESSMENT/PLAN: 1. Left leg injury, initial encounter - ICD9: 959.7, ICD10: S89.92XA r/o fracture XR concerning for non-displaced femoral neck fracture Attempted to contact ortho-unable Advised ER. Gave report to [facility] ER and faxed radiology report and patient snap shot - XR HIP GENERAL 3V PELV/AP/LAT LT - XR FEMUR GENERAL 2V AP/LAT LT The patient indicates understanding of these issues and agrees with the plan. Reviewed red flags and when to seek care sooner. Jennifer Wilcox PA-C 09/05/2017 CNOV Observed: 09/05/2017 Status: COMPLETED Source: [place] 10:45 AM [facility] REPOSITORY Office Visit ([facility]) ARTURO PEDERSEN ([id number]) 1940 M Date Time Provider Department 09/05/17 10:45 AM JENNIFER WILCOX) [facility] During your visit today, we recorded the following information about you: Temperature Pulse Respiration Blood pressure 98.5 degrees 88/minute 18/minute 118/68 Weight 92.5 kg Jennifer Wilcox PA-C 09/05/2017 2:52 PM Signed 09/05/2017 Patient presents with: Musculoskeletal Problem: x 2 weeks left upper leg pain after fall SUBJECTIVE: This is a 76 year old that is here today for Complaint(s) of left upper leg injury x 2 weeks. States he twisted in the shower and slipped and all his weight went on his left foot jamming hte upper thigh. He did not fall on the hip. Pain radiates from the hip down the lateral and anterior proximal thigh. Worse with weight bearing. Denies worsening swelling, numbness/tingling, ecchymosis. He tried a couple tylenol the first day or 2. No pain at rest. Pain with any weight bearing. Using crutch to ambulate. . PAST MEDICAL HISTORY Diagnosis Date - CABG - CVA (cerebral infarction) 04/16/14 - Depression - GERD (gastroesophageal reflux disease) - Neuropathy (HCC) - Other and unspecified hyperlipidemia - Prostate cancer (HCC) - Unspecified essential hypertension ALLERGIES Percodan [Oxycodone-Aspirin] MEDICATIONS Current Outpatient Prescriptions: escitalopram oxalate (LEXAPRO) 20 mg tablet Take 1 tablet by mouth once daily. levothyroxine (SYNTHROID) 50 mcg tablet Take 1 tablet by mouth once daily (take on an empty stomach) hydroCHLOROthiazide (HYDRODIURIL, ESIDRIX) 25 mg tablet Take 1 tablet by mouth once daily. atenolol (TENORMIN) 50 mg tablet Take 1 tablet by mouth once daily. spironolactone (ALDACTONE) 25 mg tablet Take 1 tablet by mouth once daily. Potassium Bicarb-Citric Acid (KLOR-CON/EF) 25 mEq disintegrating tablet Take 1 tablet by mouth once daily. (Patient taking differently: Take 10 mEq by mouth once daily. ) atorvastatin (LIPITOR) 40 mg tablet Take 1 tablet by mouth once daily. nitroglycerin sublingual 0.3 mg SL tablet Dissolve 1 tablet under the tongue every 5 minutes as needed. ranitidine (ZANTAC) 150 mg ORAL tablet Take 1 tablet by mouth twice daily. VIKAS ASPIRIN 325 MG TAB Take one(1) tablet daily. No current facility-administered medications for this visit. SOCIAL HISTORY Social History Marital status: Spouse name: Years of education: Number of children: Social History Main Topics Smoking status: Former Smoker Packs/day: 2.00 Years: 25.00 Types: Cigarettes Quit date: 10/16/1992 Smokeless tobacco: Never Used Alcohol use: No Drug use: No Social History Narrative Lives with and adult son with mental handicap in their home. Performs in a [employer]. REVIEW OF SYSTEMS All other reviewed and negative other than HPI. OBJECTIVE: BP 118/68 Pulse 88 Temp 36.9 ?C (98.5 ?F) Resp 18 Wt 92.5 kg (204 lb) BMI 28.45 kg/m? APPEARANCE Well appearing, alert, in no acute distress, well- hydrated, well nourished. EXTREMITIES normal exam right hip. Left hip with mild TTP proximal and mid femoral shaft. Pain with internal rotation of left hip. No obvious edema. Distal LE pulses intact, equal JENNY. ASSESSMENT/PLAN: 1. Left leg injury, initial encounter - ICD9: 959.7, ICD10: S89.92XA r/o fracture XR concerning for non-displaced femoral neck fracture Attempted to contact ortho-unable Advised ER. Gave report to [facility] ER and faxed radiology report and patient snap shot - XR HIP GENERAL 3V PELV/AP/LAT LT - XR FEMUR GENERAL 2V AP/LAT LT The patient indicates understanding of these issues and agrees with the plan. Reviewed red flags and when to seek care sooner. Jennifer Wlicox PA-C 09/05/2017 Referring Provider: SELF [[id number]] Allergies As of Date: 09/05/2017 Noted Allergy Reaction PERCODAN (OXYCODONE-ASPIRIN) 12/17/2004 1 - Mental Status Change Date Reviewed: 09/05/2017 Reviewed by: Morena Johnson LPN - Fully Assessed Reason for Visit: Musculoskeletal Problem [69] Cmt: x 2 weeks left upper leg pain after fall Primary Visit Diagnosis:Left leg injury, initial encounter [S89.92XA] Order(s):XR HIP GENERAL 3V PELV/AP/LAT LT [[id number]] Order #: [id number] FUTURE XR FEMUR GENERAL 2V AP/LAT LT [[id number]] Order #: [id number] FUTURE Prescriptions as of 09/05/2017 Sig: ESCITALOPRAM 20 MG TABLET Take 1 tablet by mouth once d* LEVOTHYROXINE 50 MCG TABLET Take 1 tablet by mouth once d* HYDROCHLOROTHIAZIDE 25 MG TAB* Take 1 tablet by mouth once d* ATENOLOL 50 MG TABLET Take 1 tablet by mouth once d* SPIRONOLACTONE 25 MG TABLET Take 1 tablet by mouth once d* POTASSIUM BICARBONATE-CITRIC * Take 1 tablet by mouth once d* Patient taking differently: Take 10 mEq by mouth once mera* ATORVASTATIN 40 MG TABLET Take 1 tablet by mouth once d* NITROGLYCERIN 0.3 MG SUBLINGU* Dissolve 1 tablet under the t* RANITIDINE 150 MG TABLET Take 1 tablet by mouth twice * VIKAS ASPIRIN 325 MG TABLET Take one(1) tablet daily. Problem List As Of Date 09/05/2017 Noted Resolved Atherosclerotic cardiovascular disease [I25.10] INVALID FOR* Essential hypertension [I10] INVALID FOR* Hyperlipidemia [E78.5] INVALID FOR* PAROX VENTRIC TACHYCARD [I47.2] INVALID FOR* Depression [F32.9] INVALID FOR* Dyspnea [R06.00] INVALID FOR* Hypothyroidism [E03.9] INVALID FOR* Obstructive sleep apnea on CPAP [G47.33, Z99.89]INVALID FOR* Adjustment disorder with mixed anxiety and depr*INVALID FOR* Encounter Status:Closed by JENNIFER WILCOX PA-C on 09/05/17 COMP METABOLIC PANEL Collected: 03/31/2017 Status: F Source: [place] 11:00 PM [facility] REPOSITORY TYPE CODE TESTS RESULT OUT OF REFERENCE UNITS RANGE LAB TP 6.3-8.0 g/dL Protein, Total 6.7 LAB ALB 3.9-4.9 g/dL Albumin 4.1 LAB CA 8.5-10.2 mg/dL Calcium, Total 9.4 LAB TBIL 0.2-1.3 mg/dL Bilirubin, Total 0.6 LAB ALKP 36-108 U/L Alkaline Phosphatase 101 LAB AST 14-40 U/L AST 23 LAB GLU 74-99 mg/dL Glucose High 100 Result Comment: The [place] [employer] (ADA) provides guidance for cutoff values for fasting glucose and random glucose. The ADA defines fasting as no caloric intake for at least 8 hours. Fas ting plasma glucose results between 100 to 125 mg/dL indicate increased risk for diabetes (prediabetes). Fasting plasma glucose results greater than or equal to 126 mg/dL meet the criteria for diagnosis of diabetes. In the absence of unequivocal hyperglycemia, results should be confirmed by repeat testing. In a patient with classic symptoms of hyperglycemia or hyperglycemic crisis, random plasma glucose results greater than or equal to 200 mg/dL meet the criteria for diagnosis of diabetes. Reference: Standards of Medical Care in Diabetes 2016, [place] [employer]. Diabetes Care. 2016.39(Suppl 1). LAB BUN 9-24 mg/dL BUN 20 LAB CRET 0.73-1.22 mg/dL Creatinine Low 0.71 LAB NA 136-144 mmol/L Sodium 136 LAB K 3.7-5.1 mmol/L Potassium 4.0 LAB CL 97-105 mmol/L Chloride 98 LAB CO2 22-30 mmol/L CO2 25 LAB AGAP 9-18 mmol/L Anion Gap 13 LAB ALT 10-54 U/L ALT 20 LAB GFRAA eGFR- Amer. >60 LAB GFRNAA . eGFR-All Other Races >60 Result Comment: eGFR (Estimated GFR) Units of measure: mL/min/1.73 meters squared eGFR is derived from the reexpressed MDRD Study equation using the following parameters: serum creatinine, age, gender and race. The creatinine assay has been calibrated to be traceable to IDMS. An eGFR <60 mL/min/1.73m2 for >3 months is consistent with chronic kidney disease. Refer to KDOQI guidelines for clinical interpretation. In patients with unstable renal function, e.g. those with acute kidney injury, the eGFR may not accurately reflect actual GFR. Performed By: #### CMP, LIPB, TSH #### [facility] [address] [place] [address] LIPID PANEL, BASIC Collected: 03/31/2017 Status: F Source: [place] 11:00 PM [facility] REPOSITORY TYPE CODE TESTS RESULT OUT OF REFERENCE UNITS RANGE LAB CHOL <200 mg/dL Cholesterol 138 Result Comment: <200 mg/dL, Desirable 200-239 mg/dL, Borderline high >239 mg/dL, High LAB TRIGLY <150 mg/dL Triglyceride 100 Result Comment: <150 mg/dL, Normal 150-199 mg/dL, Borderline high 200-499 mg/dL, High >499 mg/dL, Very high LAB HDL >39 mg/dL HDL-Cholesterol Low 39 Result Comment: 40-59 mg/dL, Acceptable >59 mg/dL, High: Negative risk factor for coronary heart disease <40 mg/dL, Low: Positive risk factor for coronary heart disease LAB LDL <100 mg/dL LDL-Cholesterol 79 Result Comment: <100 mg/dL, Optimal 100-129 mg/dL, Near optimal/above optimal 130-159 mg/dL, Borderline high 160-189 mg/dL, High >189 mg/dL, Very high Secondary prevention optimal LDL Cholesterol levels are recommended to be < 70 mg/dL LAB NONHDL <130 mg/dL Non HDL Cholesterol 99 Result Comment: <130 mg/dL, Optimal 130-159 mg/dL, Near optimal/above optimal 160-189 mg/dL, Borderline high 190-219 mg/dL, High >219 mg/dL, Very high Secondary prevention optimal non HDL Cholesterol levels are recommended to be < 100 mg/dL LAB FT hrs Fasting Time Unknown LAB VLDL <30 mg/dL VLDL Cholesterol 20 LAB TCHDL <5.10 TC:HDL Ratio 3.54 LAB LDLHDL <2.54 LDL:HDL Ratio 2.03 Result Comment: Reference: 1. National Cholesterol Education Program ATP III Guideline At-A-Glance Quick Desk Reference: National Heart, Lung, and Blood Arnold. National Institutes of Health. 2001: NIH Publication No. 01-3305. 2. An International Atherosclerosis Society position paper: global recommendations for the management of dyslipidemia: executive summary, Atherosclerosis. 2014: 232(2):410-413. Performed By: #### CMP, LIPB, TSH #### [facility] [address] [place], [place] [address] TSH Collected: 03/31/2017 Status: F Source: [place] 11:00 PM [facility] REPOSITORY TYPE CODE TESTS RESULT OUT OF RANGE REFERENCE UNITS LAB TSH 0.400-5.500 uU/mL TSH 3.440 Performed By: #### CMP, LIPB, TSH #### [facility] [address] [place], [place] [address] PROGRESS Observed: 03/31/2017 Status: COMPLETED Source: [place] 1:13 PM [facility] REPOSITORY HNO ID: [id number] Author: aPddy Zaidi Service: (none) Author Type: Physician Type: Progress Notes Filed: 04/03/2017 5:26 AM Note Text: Chief Complaint Patient presents with: Follow Up HPI Arturo Pedersen is a 76 year old male who presents here today for follow-up of depression. He's done better,wasn't taking the citalopram before, now feels better on it routinely . He has not needed the lorazepam. . Reflux once in a while. Doesn't take th ranitidine every day. No recurrence of V-tach ACTIVE PROBLEM LIST Atherosclerotic Cardiovascular Disease Essential Hypertension Hyperlipidemia Paroxysmal Ventricular Tachycardia (Hcc) Depression Dyspnea Hypothyroidism Obstructive Sleep Apnea On Cpap Adjustment Disorder With Mixed Anxiety and Depressed Mood Past medical history, appointments, medications, allergies reviewed. Previous Medical History PAST MEDICAL HISTORY Diagnosis Date - CABG - CVA (cerebral infarction) 04/16/14 - Depression - GERD (gastroesophageal reflux disease) - Neuropathy (HCC) - Other and unspecified hyperlipidemia - Prostate cancer (HCC) - Unspecified essential hypertension Previous Surgical History PAST SURGICAL HISTORY Procedure Laterality Date - CABG (2) VEIN GRAFTS AND ARTERIAL GRAFT(S - radiation for prostate cancer - TOTAL HIP REPLACEMENT Family History FAMILY HISTORY Problem Relation Age of Onset - Heart Father - Prostate Cancer Father - Alzheimer's Disease Mother Patient Allergies ALLERGIES Allergen Reactions - Percodan [Oxycodone* Mental Status Change Current Medications Current Outpatient Prescriptions on File Prior to Visit: levothyroxine (SYNTHROID) 50 mcg tablet Take 1 tablet by mouth once daily (take on an empty stomach) hydroCHLOROthiazide (HYDRODIURIL, ESIDRIX) 25 mg tablet Take 1 tablet by mouth once daily. atenolol (TENORMIN) 50 mg tablet Take 1 tablet by mouth once daily. escitalopram oxalate (LEXAPRO) 20 mg tablet Take 1 tablet by mouth once daily. spironolactone (ALDACTONE) 25 mg tablet Take 1 tablet by mouth once daily. Potassium Bicarb-Citric Acid (KLOR-CON/EF) 25 mEq disintegrating tablet Take 1 tablet by mouth once daily. (Patient taking differently: Take 10 mEq by mouth once daily. ) atorvastatin (LIPITOR) 40 mg tablet Take 1 tablet by mouth once daily. nitroglycerin sublingual 0.3 mg SL tablet Dissolve 1 tablet under the tongue every 5 minutes as needed. ranitidine (ZANTAC) 150 mg ORAL tablet Take 1 tablet by mouth twice daily. VIKAS ASPIRIN 325 MG TAB Take one(1) tablet daily. tiotropium (SPIRIVA WITH HANDIHALER) 18 mcg inhalation capsule Inhale 1 capsule as instructed once daily. (Patient not taking: Reported on 03/31/2017 ) doxepin capsule 10 mg Take 1 capsule by mouth daily at bedtime. For sleep. (Patient not taking: Reported on 03/31/2017 ) sildenafil (VIAGRA) 100 mg tablet Take 1/2 tablet - 1 tablet 1 hour prior to anticipated intercourse. (Patient not taking: Reported on 03/31/2017 ) amLODIPine (NORVASC) 10 mg tablet Take 1 tablet by mouth once daily. (Patient not taking: Reported on 03/31/2017 ) No current facility-administered medications on file prior to visit. Social History Social History Marital status: Spouse name: Years of education: Number of children: Social History Main Topics Smoking status: Former Smoker Packs/day: 2.00 Years: 25.00 Types: Cigarettes Quit date: 10/16/1992 Smokeless status: Never Used Alcohol use: No Drug use: No Social History Narrative Lives with and adult son with mental handicap in their home. 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 ROS: General: Feels well, no weight changes, fever, chills. HEENT: No sinus congestion, earache, sore throat. Cardiac: No chest pain, palpitations, shortness of breath Resp: No cough, wheeze. GI: No reflux symptoms, food intolerance, bowel changes. : No urinary frequency, dysuria. MS: No pain or joint complaints. PHYSICAL EXAMINATION BP 136/64 (BP Site: Right Arm, BP Position: Sitting, BP Cuff Size: Large Adult) Pulse 61 Resp 12 Wt 92.1 kg (203 lb) BMI 28.31 kg/m2 General: Alert and oriented, no distress, pleasant and cooperative. Heart: Regular, normal S1 and S2, no murmurs, rubs, or gallops Lungs: Clear to auscultation bilaterally Abdomen: Benign Extremities: Feet/ankles without edema, posterior tibial pulses full and symmetrical Health Maintenance List TETANUS due on 10/05/1950 COLORECTAL CANCER SCREENING,SEE MODIFIER due on 10/05/1989 ADULT PREVNAR-13 due on 10/05/2004 DIABETES SCREEN due on 10/26/2019 LIPID SCREEN due on 10/25/2021 PROSTATE CANCER SCREENING DISCUSSION Completed INFLUENZA Completed PNEUMOVAX AGE 65 AND OVER WITH 5YR LOOKBACK Completed Data reviewed Lab Results Component Value Date/Time CHOL 138 03/31/2017 11:00 PM HDL 39 (L) 03/31/2017 11:00 PM LDL 79 03/31/2017 11:00 PM TSH 3.440 03/31/2017 11:00 PM PSA 0.42 05/23/2013 12:37 PM [facility] website checked and validated. All prescriptions have been APPROPRIATELY filled. No suspicious activity was identified.- 04/03/2017 by Paddy Zaidi MD Assessment/Plan: (F43.23) Adjustment disorder with mixed anxiety and depressed mood (primary encounter diagnosis) Comment: better back on his meds. Plan: (I47.2) Paroxysmal ventricular tachycardia (HCC) Comment: no recurrentc Plan: COMP METABOLIC PANEL, COMP METABOLIC PANEL (E78.2) Mixed hyperlipidemia Comment: labs due Plan: LIPID PANEL BASIC, LIPID PANEL BASIC (E03.9) Acquired hypothyroidism Comment: Plan: TSH BLD, TSH BLD (M54.2) Neck pain Comment: muscular/ arthritic. Plan: (Z23) Need for vaccination with 13-polyvalent pneumococcal conjugate vaccine Comment: Plan: PNEUMOCOCCAL-13 VACCINE PCV-13 (G47.33, Z99.89) Obstructive sleep apnea on CPAP Comment: stable. Plan: (E03.9) Hypothyroidism, unspecified type Comment: due for lab / refill Plan: levothyroxine (SYNTHROID) 50 mcg tablet Signed Prescriptions Disp Refills levothyroxine (SYNTHROID) 50 mcg tablet 90 tablet 3 Sig: Take 1 tablet by mouth once daily (take on an empty stomach) KARLA: No RTO: 3 mos if stable Paddy Zaidi MD ALLERGIES ALLERGIES DATE TYPE / CODE NAME / CODE REACTION SEVERITY SOURCE 02/15/2018 Drug oxycodone/F00 Other Unknown [facility] Allergy/4160 [id number]([place] 6938002(SNOMED M) Repository CT) 02/15/2018 Drug aspirin/F0060 Other Unknown [facility] Allergy/4160 21689(RXNORM) [place] [address](SNOMED Repository CT) 06/24/2014 Drug No Known Unknown [facility] Allergy/4160 Allergies/F00 [place] [address](SNOMED 9641066(RXNOR Repository CT) M) 12/17/2004 DRUG/[id number] OXYCODONE-ASP [facility] 03(SNOMED [facility] [place] [facility]) Repository ENCOUNTERS ENCOUNTERS ADMIT/DISCHARGE ACCOUNT ADMITTING ENCOUNTER LOCATION SOURCE NUMBER CLASS 02/23/[id number] [facility] ing:[facility] Repository 02/15/2018/02/15/19 [id number] Ambulatory BMSBuilding:B [place] 19 [place].[facility] Repository 02/01/2018 [id number] [facility] ing:PSN Repository 02/01/2018 [id number] Ambulatory BMSBuilding:W [place] [facility] Repository 01/27/2018 [id number] Ambulatory BMSBuilding:W [place] [facility] Repository 01/26/[id number] [facility] ing:PSN Repository 01/12/2018/01/13/20 [id number] Ambulatory BMSBuilding:B [place] 18 MS.[facility] Repository 09/12/2017/09/14/19 [id number] [place], Ambulatory [address] ing:PY6Uegu: Repository BE092Rbo: 1 09/08/2017/09/14/19 [id number] Ambulatory BMSBuilding:W [place] 18 [facility] Repository 09/05/2017/09/06/19 [id number] Emergency [address] ing:ED Repository 09/05/2017/09/06/19 [id number] Ambulatory [address] Repository 09/05/2017/09/07/19 [id number] Ambulatory [address] Repository 06/15/2017 [id number] Ambulatory BMSBuilding:B [place].[facility] Repository 06/09/2017 [id number] Ambulatory [facility] Repository 03/31/2017/04/04/19 [id number] Ambulatory [address] Repository PAYERS PAYERS ENCOUNTER GUARANTOR PAYER SUBSCRIBER SOURCE 02/23/2018 ARTURO Martin Primary Insurance:AETPRETTY ARTURO Trejo [id number] W MCRPolicy Number: BURGESSDOB: [facility] ARISTEO MEBFHRCGEffective [id number] Date:4349-23-34NB BOX Repository 39789Fbc: [phone] ZINA NAVARRETE [phone] ([place]) [phone]: 02/23/2018 Secondary NOT GIVENUNK Neil Insurance:SELF PAY [facility] INSURANCEPolicy Number: Hospital Effective Repository Date:2018-02-17 02/15/2018 ARTURO Martin Primary Insurance:AETPRETTY ARTURO Trejo [id number] W [facility]: BURGESSDOB: [facility] ARISTEO [facility]BF[facility] Henry[facility] [id number], [place] Date:0668-56-74KF BOX Repository 259[address]Tgs: [phone] [place] [phone] (HP) [phone]: 02/15/2018 Secondary NOT GIVENUNK [place] Insurance:SELF PAY Community INSURANCEPolicy Number: Hospital Effective Repository Date:2018-02-13 02/01/2018 ARTURO T Primary Insurance:AETNA ARTURO [id number] W MCRPolicy Number: BURGESSDOB: Community ARISTEO MEBFHRCGEffective [id number] Date:8204-59-74XJ BOX Repository [address]Ubf: [phone] [place] [phone] (HP) [phone]: 02/01/2018 Secondary NOT GIVENUNK [place] Insurance:SELF PAY Community INSURANCEPolicy Number: Hospital Effective Repository Date:2018-01-12 02/01/2018 ARTURO T Primary Insurance:AETNA ARTURO [id number] W MCRPolicy Number: BURGESSDOB: Community ARISTEO MEBFHRCGEffective [id number] Regional [facility] Date:7496-09-54MD BOX Repository 378[address]Svx: [phone] [place] [phone] (HP) [phone]: 02/01/2018 Secondary NOT GIVENUNK [place] Insurance:SELF PAY Community INSURANCEPolicy Number: Hospital Effective Repository Date:2018-02-01 01/27/2018 ARTURO T Primary Insurance:AETNA ARTURO CHACONS3176 W MCRPolicy Number: BURGESSDOB: Community ARISTEO MEBFHRCGEffective [id number] [facility] Date:0079-36-47JJ BOX Repository 986[address]Guk: [phone] [place] [phone] (HP) [phone]: 01/27/2018 Secondary NOT GIVENUNK [place] Insurance:SELF PAY Community INSURANCEPolicy Number: Hospital Effective Repository Date:2018-01-27 01/26/2018 ARTURO T Primary Insurance:AEDARIA CHACONS3176 W MCRPolicy Number: BURGESSDOB: Community ARISTEO MEBFHRCGEffective [id number] Regional Medical Center[place] Date:9509-69-88SH BOX Repository [address]Gwy: [phone] [place] [phone] (HP) [phone]: 01/26/2018 Secondary NOT GIVENUNK Neil Insurance:SELF PAY Community INSURANCEPolicy Number: Hospital Effective Repository Date:2018-01-12 01/12/2018 ARTURO T Primary Insurance:AETNA ARTURO CHACONS3176 W MCRPolicy Number: BURGESSDOB: Community ARISTEO MEBFHRCGEffective [id number] [facility]:4310-37-94YK BOX Repository [address]Rkk: [phone] [place] [phone] (HP) [phone]: 01/12/2018 Secondary NOT GIVENUNK [place] Insurance:SELF PAY Community INSURANCEPolicy Number: Hospital Effective Repository Date:2018-01-11 09/12/2017 ARTURO T Primary Insurance:AETPRETTY Trejo [id number] W MCRPolicy Number: BURGESSDOB: Community ARISTEO MEBFHRCGEffective [id number] Regional [facility] Date:7283-32-93MD BOX Repository 25[address]Eug: [phone] LYNN [phone] (HP) [phone]: 09/12/2017 Secondary NOT GIVENUNK Neil Insurance:SELF PAY Community INSURANCEPolicy Number: Hospital Effective Repository Date:2017-09-08 09/08/2017 ARTURO T Primary Insurance:AEDARIA Trejo [id number] W MCRPolicy Number: BURGESSDOB: Community ARISTEO MEBFHRCGEffective [id number] Regional [facility] Date:5250-98-48OK BOX Repository [address]Jlj: [phone] [place] [phone] (HP) [phone]: 09/08/2017 Secondary NOT GIVENUNK [place] Insurance:SELF PAY Community INSURANCEPolicy Number: Hospital Effective Repository Date:2017-09-08 09/05/2017 ARTURO T Primary Insurance:AETNA ARTURO Trejo [id number] W MCRPolicy Number: BURGESSDOB: Community ARISTEO MEBFHRCGEffective [id number] Regional Medical Center[place] Date:2650-73-69QS BOX Repository 26[address]Xad: [phone] [place], [place] [phone] (HP) [phone]: 09/05/2017 Secondary NOT GIVENUNK [place] Insurance:SELF PAY Community INSURANCEPolicy Number: Hospital Effective Repository Date:2017-09-05 06/15/2017 ARTURO T Primary Insurance:AETNA ARTURO Odonnelloster [id number] MCRPolicy Number: BURGESSDOB: Community [place] ARI[place] MEBFHRCGEffective [id number] Regional Medical Center[place] Date:7665-77-29JD BOX Repository [address]14[address]Hkx: [phone] [place], [place] [phone] (HP) [phone]: 06/15/2017 Secondary NOT GIVENUNK Neil Insurance:SELF PAY Community INSURANCEPolicy Number: Hospital Effective Repository Date:2017-01-17 06/09/2017 Arturo T Primary Insurance:AETNA Arturo Odonnelloster [id number] MCRPolicy Number: BurgessDOB: [place] MEBFHRCGEffective [id number] [facility] [place] Date:4359-90-88FZ BOX Repository 538[address]Kix: [phone] LYNN [phone]~21 [phone]: [phone] 06/09/2017 Secondary NOT GIVENUNK [place] Insurance:SELF PAY Community INSURANCEPolicy Number: Hospital Effective Repository Date:2017-06-09
== END ==
PROVIDERS: Family Provider Family Medicine; PCP Family Medicine; Referring Provider Nurse Practitioner Acute Care; Visit Provider Nurse Practitioner Acute Care
DX: R06.09 Other forms of dyspnea (principal)
CPT/HCPCS: 93306

== ENCOUNTER 2018-07-24 05:25 | Inpatient (IN) | payer MEDICARE, SELFPAY ==
[2018-04-19 10:17] VITALS: BMI 27.7
[2018-07-06 14:06] VITALS: BP 143/87; PULSE 59; RESP 16; TEMP 36.5; O2SAT 97; BMI 31.8
[2018-07-06 14:40] LABS: Absolute Lymphocyte Count 0.88 X10^3/ul (0.83-4.51); Absolute Neutrophil Count 4.9 X10^3/uL (2.0-7.7); Basophil# 0.05 X10^3/uL; Basophil% 0.8 % (0-1); Eosinophil# 0.25 X10^3/uL; Eosinophils% 3.8 % (0-5); Hematocrit 41.5 % (40-54); Lymphocyte # 0.88 X10^3/ul (4.0); Lymphocyte % 13.5 % (19-41); Mean Corp Hgb Conc 33.7 g/gl (32-36); Mean Corpuscular Hgb 30.8 pg (27.0-32.0); Mean Corpuscular Volume 91.4 fL (80-94); Mean Platelet Vol. 9.4 fl (6.2-12.0); Monocyte# 0.45 X10^3/uL; Monocyte% 6.9 % (0-10); Neutrophil # 4.89 X10^3/uL (2.7-7.7); Neutrophil % 74.7 % (47-70); Platelet Count 154 K/mm3 (150-450); RBC Distribution Width SD 46.2 fl (35.1-43.9); Red Blood Count 4.54 M/mm3 (4.6-6.2); White Blood Count 6.5 K/mm3 (4.4-11.0)
[2018-07-06 14:41] LABS: POSITIVE COUNT NO; POSITIVE DIFFERENTIAL NO; POSITIVE MORPHOLOGY NO
[2018-07-06 15:12] LABS: Anion Gap 7 (5-15); BUN 22 mg/dL (7-18); BUN/Creat Ratio 21.6 RATIO (10-20); Chloride 109 mmol/L (98-107); Creatinine, Serum 1.02 mg/dL (0.70-1.30); EST Glomerular Filtration Rate 75 mL/min (>60); Est Glom Filt Rate - Afr Amer 91 mL/min (>60); Glucose 128 mg/dL (74-106); Potassium 3.4 mmol/L (3.5-5.1); Sodium Level 143 mmol/L (136-145); Thyroid Stim Hormone (TSH) 1.71 uIU/mL (0.358-3.74)
[2018-07-24] VITALS (15 sets, daily range): BP systolic 102–141; BP diastolic 40–81; PULSE 49–70; RESP 16–18; TEMP 36.3–37; O2SAT 87–98; BMI 31.8
[2018-07-24] MEDS: Acetaminophen 500 MG Tablet 1000 MG PO ×3 (06:03→23:00)
[2018-07-24] MEDS: oxyCODONE HCl Cr 10 MG Tablet PO (06:03)
[2018-07-24] MEDS: Celecoxib 200 MG Capsule 400 MG PO (06:03)
[2018-07-24] MEDS: Lactated Ringers 1,000 ML 999 ML IV (06:40)
--- NOTE | 2018-07-24 07:15 | HIP_PTH ---
PATIENT: ARTURO LUNA LOC: MS3 U#:[id number] AGE/SX: 77/M ROOM: MS305 RE07/24/[address]: Dr. Lex Longoria DO : 1940 BED: 1 DIS: 07/25/2018 SPEC #: [id number] RECD: 07/24/18 10:24 STATUS: ROSE MARIE REQ #: [id number] ANASTACIO: 07/24/18 07:[address]: Lex Longoria DEPT: SURGICAL PATHOLOGY RECD BY: Terence Lange ENTERED: 07/24/18 11:18 SP TYPE: TOTAL HIP OTHR DR: Dr. Shayne Moncada MD Tissues: Hip, NOS Procedures: Decalcification bone/plaque Surgery Specimen Level IV HEADER OPERATION: Removal hardware, total hip arthroplasty PRE-OP DIAGNOSIS: Nondisplaced fracture of base of neck of femur TISSUE SUBMITTED: Femoral head and bone, left MICROSCOPIC DIAGNOSIS Left femoral head and bone, total hip arthroplasty: Bone with recent and chronic hemorrhage and focal marrow fibrosis, consistent with fracture site. Adherent fibroadipose tissue showing focal vascular calcification. CE:blayne 07/27/18 MICROSCOPIC DESCRIPTION Slides are reviewed. GROSS DESCRIPTION Received is one container designated femoral head and bone. The specimen consists of a femoral head with portion of femoral neck measuring 5.5 x 5.5 x 5 cm. The portion of femoral neck measures 2.5 cm in length. The articular surface is smooth. The resection margin is irregular and hemorrhagic. Also present in the container is a detached piece of bone, most likely portion of femoral neck, measuring 3.5 x 3 x 1.5 cm. The soft tissue including femoral reaming measures in aggregate 7 x 7 x 2 cm. A round defect is noted in the smaller piece of bone, portion of femoral neck, most likely consistent with impression of femoral neck. Telemetry Rn sections are submitted in three cassettes as follows: 1 - soft tissue, 2 - smaller piece of bone after decalcification, 3 - femoral head after decalcification. / SJ:blayne 07/24/18 TC:5 CPT: 31941, 67952
[2018-07-24] MEDS: Cefazolin 2 GM in 0.9% Normal Saline 100 ML IV (07:20)
--- NOTE | 2018-07-24 09:06 | PCM.OPRPT ---
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 The patient underwent ORIF of a subcapital hip fx in September of last year and has persistent pain. They have failed conservative measures including activity modification, anti-inflammatories, use of assistive devices. This to the point where the pain affects their ability to enjoy life and complete activities of daily living without discomfort. Patient has elected to undergo the above procedure Procedure Description: The patient was greeted in the preoperative area the [left ] hip was marked with surgical marker preoperative antibiotics administered. The patient was then taken to or suite in stable condition. Preoperative tranexamic acid was also utilized. Once the patient was placed in the supine position on the operating room table and once adequate anesthesia was obtained they were then placed in the lateral decubitus position with the surgical hip facing the field. All bony prominences were well-padded. A commercial hip position was utilized. The appropriate extremity was then prepped and draped in usual sterile fashion. Ioban was placed on the skin. Surgical timeout was performed and surgery was commenced. A standard posterior approach to the hip was then performed. Incision was planned and carried out with a #10 blade scalpel. Dissection was then carried length of the incision to the IT band which was split proximally and distally. Three screws were encountered laterally. These were dissected free of soft tissue and removed. A Charnley retractor was then placed for soft tissue retraction exposing the piriformis. A standard posterior capsulotomy was performed. A nonunion of the subcapital hip fracture was identified. A femoral neck osteotomy guide was used to mary lou the proximal femur. A femoral osteotomy was then created approximately 1 fingerbreadth above the lesser trochanter. The fractured bone and femoral head were removed. This was measured and placed on the back table. Once this was complete acetabular retractors were placed anteriorly and posteriorly. Labrum was then removed from the acetabulum exposing the entire cup of the acetabulum. Sequential reaming was then commenced and the acetabulum was medialized and sequentially widened in order to accommodate appropriate size cup. The acetabular cup was then impacted into position to the appropriate depth referencing approximately 30? anteversion and 45? of inclination. Excellent purchase was obtained. [2] appropriate sized cancellous screws were placed in the cup. An appropriate size MDM liner was then placed. Attention was then turned to the femoral preparation. The hip was placed in the 90/90 position and a lateralizing box osteotome was utilized. Femoral starting awl was used followed by sequential broaching to the appropriate size. Excellent purchase was obtained with the stem no stem subsidence and excellent rotational stability was confirmed. A calcar reamer was then used in the trial head neck was placed on the broach. The hip was then located and taken through full range of motion flexion internal and external rotation as well as extension. Excellent stability was noted no impingement was identified of the components and leg lengths appear to be appropriate. The hip was at this point dislocated and the trial femoral components were removed. The final femoral stem was then implanted and impacted to the appropriate depth. Again excellent purchase was obtained no stem subsidence or rotational instability was noted. The hip was once again trialed and confirmation of leg length and stability was performed. Soft tissue tension also appeared to be appropriate. At this point the hip was redislocated and the trunnion was cleaned and dried meticulously in the appropriate size MDM femoral head was placed on the clean dry trunnion using a 12/14 Espinoza taper. The hip was once again relocated and again taken through full range of motion. I did inject a cocktail of postoperative pain medication in the deep and superficial tissues. Copious irrigation was performed. Anatomic closure of the piriformis tendon was performed through drill holes in the greater trochanter. A #1 Vicryl 0 Vicryl was utilized in subcutaneous tissue and surgical ojse alberto were placed in the skin. A well-padded nonadherent dressing was applied. Patient was taken to PACU in stable condition. No complications were identified. Will follow standard postop protocol for total hip arthroplasty. My assistant at surgery played a vital role in the procedure beginning with positioning, holding retraction of soft tissues, positioning the leg to optimize visualization during the procedure and assisting with wound closure. station mechanic helper: Yvon Medrnao Type of Anesthesia:: General Anesthesiologist: Lamberto Lewis Specimen's removed: bone Estimated Blood Loss (mL): 300cc - Admit VTE Documentation VTE Present on Admission: No VTE Mechan Device Prophylaxis: SCD's, Thigh High BRITTANY Hose VTE Pharm Prophylaxis ordered?: Yes
--- NOTE | 2018-07-24 09:15 | OP.PCM_ITS ---
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 The patient underwent ORIF of a subcapital hip fx in September of last year and has persistent pain. They have failed conservative measures including activity modification, anti-inflammatories, use of assistive devices. This to the point where the pain affects their ability to enjoy life and complete activi ties of daily living without discomfort. Patient has elected to undergo the above procedure Procedure Description: The patient was greeted in the preoperative area the [left ] hip was marked with surgical marker preoperative antibiotics administered. The patient was then taken to or suite in stable condition. Preoperative tranexamic acid was also utilized. Once the patient was placed in the supine position on the operating room table and once adequate anesthesia was obtained they were then placed in the lateral decubitus position with the surgical hip facing the field. All bony prominences were well-padded. A commercial hip position was utilized. The appropriate extremity was then prepped and draped in usual sterile fashion. Ioban was placed on the skin. Surgical timeout was performed and surgery was commenced. A standard posterior approach to the hip was then performed. Incision was planned and carried out with a #10 blade scalpel. Dissection was then carried length of the incision to the IT band which was split proximally and distally. Three screws were encountered laterally. These were dissected free of soft tissue and removed. A Charnley retractor was then placed for soft tissue retraction exposing the piriformis. A standard posterior capsulotomy was performed. A nonunion of the subcapital hip fracture was identified. A femoral neck osteotomy guide was used to mary lou the proximal femur. A femoral osteotomy was then created approximately 1 fingerbreadth above the lesser trochanter. The fractured bone and femoral head were removed. This was measured and placed on the back table. Once this was complete acetabular retractors were placed anteriorly and posteriorly. Labrum was then removed from the acetabulum exposing the entire cup of the acetabulum. Sequential reaming was then commenced and the acetabulum was medialized and sequentially widened in order to accommodate appropriate size cup. The acetabular cup was then impacted into position to the appropriate depth referencing approximately 30? anteversion and 45? of inclination. Excellent purchase was obtained. [2] appropriate sized cancellous screws were placed in the cup. An appropriate size MDM liner was then placed. Attention was then turned to the femoral preparation. The hip was placed in the 90/90 position and a lateralizing box osteotome was utilized. Femoral starting awl was used followed by sequential broaching to the appropriate size. Excellent purchase was obtained with the stem no stem subsidence and excellent rotational stability was confirmed. A calcar reamer was then used in the trial head neck was placed on the broach. The hip was then located and taken through full range of motion flexion internal and external rotation as well as extension. Excellent stability was noted no impingement was identified of the components and leg lengths appear to be appropriate. The hip was at this point dislocated and the trial femoral components were removed. The final femoral stem was then implanted and impacted to the appropriate depth. Again excellent purchase was obtained no stem subsidence or rotational instability was noted. T he hip was once again trialed and confirmation of leg length and stability was performed. Soft tissue tension also appeared to be appropriate. At this point the hip was redislocated and the trunnion was cleaned and dried meticulously in the appropriate size MDM femoral head was placed on the clean dry trunnion using a 12/14 Espinoza taper. The hip was once again relocated and again taken through full range of motion. I did inject a cocktail of postoperative pain medication in the deep and superficial tissues. Copious irrigation was performed. Anatomic closure of the piriformis tendon was performed through drill holes in the greater trochanter. A #1 Vicryl 0 Vicryl was utilized in subcutaneous tissue and surgical jose alberto were placed in the skin. A well-padded nonadherent dressing was applied. Patient was taken to PACU in stable condition. No complications were identified. Will follow standard postop protocol for total hip arthroplasty. My anesthesiologist assistant played a vital role in the procedure beginning with positioning, holding retraction of soft tissues, positioning the leg to optimize visualization during the procedure and assisting with wound closure. cardiology consultant: Yvon Medrano Type of Anesthesia:: General Anesthesiologist: Lamberto Lewis Specimen's removed: bone Estimated Blood Loss (mL): 300cc - Admit VTE Documentation VTE Present on Admission: No VTE Mechan Device Prophylaxis: SCD's, Thigh High BRITTANY Hose VTE Pharm Prophylaxis ordered?: Yes
--- NOTE | 2018-07-24 09:34 | RAD_ITS ---
STUDY: X-RAY - PELVIS AND LEFT HIP REASON FOR EXAM: Male, 77 years old. Left hip replacement. TECHNIQUE: 2 views of the pelvis and hip. COMPARISON: None. FINDINGS: The patient is status post left hip replacement. There is good alignment. Postoperative soft tissue changes. RAD/Hip Min 2 Views (Portable) IMPRESSION: Status post left hip replacement. There is good alignment. Postoperative soft tissue changes. Electronically Signed: Domingo Little, at 10:59 EDT , Service support ,
[2018-07-24 09:45] LABS: Hematocrit 32.7 % (40-54); Hemoglobin 10.8 g/dl (13.0-16.5); Mean Corpuscular Hgb 30.3 pg (27.0-32.0); Mean Corpuscular Volume 91.9 fL (80-94); Mean Platelet Vol. 9.4 fl (6.2-12.0); Platelet Count 162 K/mm3 (150-450); RBC Distribution Width CV 13.7 % (11.6-14.6); RBC Distribution Width SD 45.8 fl (35.1-43.9); Red Blood Count 3.56 M/mm3 (4.6-6.2); Scan Indicated on CBC? Y/N NO; White Blood Count 10.3 K/mm3 (4.4-11.0)
[2018-07-24 09:59] LABS: Anion Gap 10 (5-15); BUN 20 mg/dL (7-18); BUN/Creat Ratio 23.8 RATIO (10-20); Calcium,Total 7.8 mg/dL (8.5-10.1); Chloride 107 mmol/L (98-107); Creatinine, Serum 0.84 mg/dL (0.70-1.30); EST Glomerular Filtration Rate 94 mL/min (>60); Est Glom Filt Rate - Afr Amer 113 mL/min (>60); Estimated Creatinine Clearance 67.76 ml/min; Glucose 132 mg/dL (74-106); Potassium 3.6 mmol/L (3.5-5.1); Sodium Level 141 mmol/L (136-145)
[2018-07-24] MEDS: Lactated Ringers 1,000 ML 125 ML IV ×3 (09:59→23:03)
[2018-07-24] MEDS: Famotidine 20 MG Tablet PO (14:39)
[2018-07-24] MEDS: Aspirin 325 MG Tablet PO ×2 (14:39→22:59)
[2018-07-24] MEDS: Cefazolin 1 GM/50 ML BAG IV ×2 (14:49→23:08)
--- NOTE | 2018-07-24 15:48 | CASEMGMT ---
Social Work SW was approached by pt nephew who is expressing concern that pt would benefit from going to SNF prior to returning home as pt has stage 4 lung cancer and pt and care for their adult handicapped son. Nephew is concerned caring for pt would be too difficult for pt initially. SW met with pt, , nephew and two other family members. Discussed options of home with outpt therapy vs. short term SNF placement. Provided a list of area SNF's in network with insurance and explained that insurance would have to give preauthorization. Family would like to talk about choices and SW will check on pt tomorrow for d/c decision. ANJUM Reyes
[2018-07-24] MEDS: Senna/Docusate Sodium 1 Tablet 2 TABLET PO (22:59)
[2018-07-25 04:56] VITALS: BP 117/50; PULSE 63; RESP 18; TEMP 36.8; O2SAT 96
[2018-07-25 05:11] VITALS: PULSE 63
[2018-07-25] MEDS: Acetaminophen 500 MG Tablet 1000 MG PO ×2 (05:32→14:32)
[2018-07-25] MEDS: Levothyroxine 50 MCG Tablet PO (05:32)
[2018-07-25 06:22] LABS: Hematocrit 32.5 % (40-54); Hemoglobin 10.8 g/dl (13.0-16.5); Mean Corp Hgb Conc 33.2 g/gl (32-36); Mean Corpuscular Hgb 30.9 pg (27.0-32.0); Mean Corpuscular Volume 92.9 fL (80-94); Platelet Count 127 K/mm3 (150-450); RBC Distribution Width CV 14.2 % (11.6-14.6); RBC Distribution Width SD 47.5 fl (35.1-43.9); Scan Indicated on CBC? Y/N NO; White Blood Count 9.6 K/mm3 (4.4-11.0)
[2018-07-25 06:40] LABS: Anion Gap 6 (5-15); BUN 22 mg/dL (7-18); BUN/Creat Ratio 27.1 RATIO (10-20); Calcium,Total 7.6 mg/dL (8.5-10.1); Chloride 106 mmol/L (98-107); Creatinine, Serum 0.81 mg/dL (0.70-1.30); EST Glomerular Filtration Rate 98 mL/min (>60); Est Glom Filt Rate - Afr Amer 118 mL/min (>60); Estimated Creatinine Clearance 70.27 ml/min; Glucose 114 mg/dL (74-106); Sodium Level 139 mmol/L (136-145)
--- NOTE | 2018-07-25 07:14 | DCINST_ITS ---
May shower in (days): 3 - only if incision is dry and without drainage. Do NOT soak/submerge in tub/pool/everett/stream/hot tub. Call your doctor if your incision/area has: Increased Pain/ Swelling, Increased Redness, Foul Smelling Discharge Call your doctor if you observe: Fever of 101 or Higher, Calf discomfort, Uncontrolled pain Allergies/Adverse Reactions: Allergies oxycodone [From Percodan] Allergy (Verified 07/06/18 13:44) Other Medications to take at Discharge amlodipine 10 mg tablet 10 mg PO QDAY 90 Days #90 tab 06/09/17 atenolol 50 mg tablet 50 mg PO QDAY 90 Days #90 tab 06/09/17 atorvastatin 40 mg tablet 40 mg PO QDAY 06/09/17 hydrochlorothiazide 25 mg tablet 25 mg PO QDAY 06/09/17 levothyroxine 50 mcg tablet 50 mcg PO QDAY 90 Days #90 tab 06/09/17 nitroglycerin 0.3 mg sublingual tablet 0.3 mg SUBLINGUAL Q5-15M PRN 06/09/17 potassium chloride ER 20 mEq tablet,extended release(part/cryst) 20 meq PO QDAY 90 Days #90 tab 06/09/17 ranitidine 150 mg tablet 150 mg PO DAILY tab 06/09/17 spironolactone 25 mg tablet 25 mg PO QDAY 90 Days #90 tab 06/09/17 Aspirin [Aspir 81] 81 mg PO DAILY 07/06/18 Acetaminophen [Tylenol] 1,000 mg PO Q8 tab 07/25/18 Amlodipine [Norvasc] 10 mg PO DAILY tab 07/25/18 Aspirin 325 mg PO BID tab 07/25/18 Atenolol [Tenormin (beta karis)] 50 mg PO DAILY tab 07/25/18 Atorvastatin Calcium [Lipitor] 40 mg PO DAILY tab 07/25/18 Famotidine [Pepcid] 20 mg PO DAILY tab 07/25/18 Hydrochlorothiazide [Hctz] 25 mg PO DAILY tab 07/25/18 Levothyroxine [Synthroid] 50 mcg PO DAILY@0600 tab 07/25/18 Potassium Chloride [K-Dur] 20 meq PO DAILY@0800 tab 07/25/18 Senna/Docusate Sodium [Senokot-S] 2 tab PO BID tab 07/25/18 Spironolactone [Aldactone] 25 mg PO DAILY tab 07/25/18 traMADol [Ultram] 50 - 100 mg PO Q6H PRN PRN 7 Days #30 tab 07/25/18 The following prescriptions were given: traMADol [Ultram] 50 - 100 mg PO Q6H PRN PRN 7 Days #30 tab PRN Reason: Mod-Severe Pain (4-11/16) Prescription Printed Primary Care Physician: Shayne Moncada MD [Primary Care Provider] - Test Results: Test results from this visit will be discussed in further detail at your follow- up appointment, if applicable.
--- NOTE | 2018-07-25 07:14 | PCM.PN.ORT ---
Subjective: Pt. doing well. Up in chair eating breakfast. - Physical Exam General: Alert, Oriented x3, Cooperative, No apparent distress Extremities: No clubbing, No cyanosis, Capillary Refill Less than 3 Seconds, No Calf Tenderness Skin: Incision - stable Vital Signs Temp Pulse Resp BP Pulse Ox 98.2 F 63 18 117/50 L 96 07/25/18 04:56 07/25/18 05:11 07/25/18 04:56 07/25/18 04:56 07/25/18 04:56 Oxygen Flow Rate (L/min) 2 Oxygen Delivery Method Room Air Weight: 206 lb 12.697 oz Body Mass Index (BMI) 31.8 Intake and Output for Last 24 Hours 07/23/18 07/24/18 07/25/18 23:59 23:59 23:59 Intake Total 4049 / 4902 1743 / 1743 Output Total 300 / 400 400 / 400 Balance 3749 / 4502 1343 / 1343 Laboratory Tests Past 24 Hrs 07/24/18 07/24/18 07/25/18 09:36 09:36 05:40 WBC 10.3 9.6 RBC 3.56 L 3.50 L Hgb 10.8 L 10.8 L Hct 32.7 L 32.5 L MCV 91.9 92.9 MCH 30.3 30.9 MCHC 33.0 33.2 RDW 13.7 14.2 RDW Differential 45.8 H 47.5 H Plt Count 162 127 L MPV 9.4 10.0 Sodium 141 Potassium 3.6 Chloride 107 Carbon Dioxide 24.0 Anion Gap 10 BUN 20 H Creatinine 0.84 Estim Creat Clear Calc 67.76 Est GFR (MDRD) Af Amer 113 Est GFR (MDRD) Non-Af 94 BUN/Creatinine Ratio 23.8 H Glucose 132 H Calcium 7.8 L 07/25/18 05:40 WBC RBC Hgb Hct MCV MCH MCHC RDW RDW Differential Plt Count MPV Sodium 139 Potassium 4.0 Chloride 106 Carbon Dioxide 27.0 Anion Gap 6 BUN 22 H Creatinine 0.81 Estim Creat Clear Calc 70.27 Est GFR (MDRD) Af Amer 118 Est GFR (MDRD) Non-Af 98 BUN/Creatinine Ratio 27.1 H Glucose 114 H Calcium 7.6 L Medical Necessity - Tobacco Use Smoking Status: Former smoker Tobacco Use: Non-smoker Assessment/Plan All Active Problems (Last Reviewed 04/19/18 @ 10:18 by Rosaura Cazares) Prostate CA (Acute) Stroke (Acute) FREEDMAN (dyspnea on exertion) (Acute) Hoarseness (Acute) left vocal cord paralysis (Acute) s/p Left THR PT this AM, home in PM
[2018-07-25] MEDS: traMADol 50 MG Tablet PO ×2 (07:28→10:46)
[2018-07-25 07:44] VITALS: BP 127/47; PULSE 73; RESP 16; TEMP 36.8; O2SAT 92; O2SAT 95
--- NOTE | 2018-07-25 07:50 | NURSING ---
scop patch removed from behind pt's left ear- per pt request
[2018-07-25] MEDS: Senna/Docusate Sodium 1 Tablet 2 TABLET PO (07:52)
[2018-07-25] MEDS: Famotidine 20 MG Tablet PO (07:53)
--- NOTE | 2018-07-25 08:31 | CASEMGMT ---
SW spoke w/pt during therapy. Pt states plans to go home today. Pt states is not concerned why nephew was so concerned, but he is going home, does not want to go anywhere for rehab. Pt will go home, no further social work needs. CARI Millan
--- NOTE | 2018-07-25 09:25 | CASEMGMT ---
RN CM Face to Face with patient for initial transition planning/care coordination assessment. RN CM introduced self and role at [facility]. Patient sitting in chair, alert and oriented. Patient willing to participate in assessment and is able to answer all questions appropriately. Care providers, pharmacy, and demographics verified. Patient wishes to discharge home and is setup with [facility] for outpatient therapy. Patient states he has no further needs or concerns at this time. CM to follow for discharge planning needs that may arise. PCP: [facility] Specialists: sheryl Longoria; Gala, customer engagement manager Preferred Pharmacy: [facility] Prescription Benefit: yes Living Will/HPOA: yes, Kaylee Pedersen LNOK: Living Arrangements: Patient lives with in a 1 story home with 1 step to enter the home. Transportation: self/ DME/HHC: Patient states he has a walker, cane, and shower chair at home. Patient is schedule for outpatient therapy at [facility] 07/28/18 1400 Disposition Plan: Patient to discharge home with outpatient therapy, family support, and follow-up plans in place. Lalita PIRES, RN, CM
[2018-07-25] MEDS: Spironolactone 25 MG Tablet PO (10:41)
[2018-07-25] MEDS: hydroCHLOROthiazide 25 MG Tablet PO (10:41)
[2018-07-25] MEDS: Atorvastatin Calcium 40 MG Tablet PO (10:41)
[2018-07-25] MEDS: Aspirin 325 MG Tablet PO (10:41)
[2018-07-25 10:52] VITALS: BP 107/50; PULSE 68; O2SAT 93
== END 2018-07-25 15:03 | disposition home or self-care (01) | DRG 470 ==
LOC: ACINP 05:28 → MS3 05:30
PROVIDERS: Anesthesiology; Admitting Provider Orthopaedic Surgery; Family Provider Family Medicine; PCP Family Medicine; Referring Provider Orthopaedic Surgery; Visit Provider Orthopaedic Surgery
PROC: 0SRB0JZ Replacement of Left Hip Joint with Synthetic Substitute, Open Approach (ICD-10-PCS; CPT 27130; principal; 2018-07-24 06:50)
DX: S72.012 Unspecified intracapsular fracture of left femur (principal); X58.XXXD Exposure to other specified factors, subsequent encounter; I69.398 Other sequelae of cerebral infarction; J38.01 Paralysis of vocal cords and larynx, unilateral; Z87.891 Personal history of nicotine dependence; M16.12 Unilateral primary osteoarthritis, left hip; I25.10 Atherosclerotic heart disease of native coronary artery without angina pectoris; Z95.1 Presence of aortocoronary bypass graft
CPT/HCPCS: 36415; 73502; 80048; 84443; 85025; 85027; 87077; 87081; 88305; 88311; 97110; 97162; 97166; 97530; C1776; J7120; J2405

== ENCOUNTER → 2018-10-23 13:08 | Outpatient (CLI) | payer MEDICARE, SELFPAY ==
[2018-04-19 10:17] VITALS: BMI 27.7
[2018-07-24 11:01] VITALS: BMI 31.8
--- NOTE | 2018-10-23 14:27 | PFTCOMP_ITS ---
COMPLETE PULMONARY FUNCTION TEST INTERPRETATION Brief HPI: Patient is a 78 year old male, currently under the care of myself, who presents to [facility] for complete pulmonary function tests secondary to diagnosis of COPD. Respiratory therapist reports good effort and reproducible results. Interpretation: Forced expiration spirometry shows a moderately severe large airways obstructive ventilatory defect with an FEV1 of 54% predicted. There is no significant bronchodilator response by strict ATS criteria. Spirograms are of good quality and plateau slowly, indicating slowly emptying areas of the lungs. The respiratory flow volume loop shows decreased expiratory flow rates at all lung volumes consistent with airway obstruction. Lung volumes by body plethysmography show a decreased total lung capacity at 5.01 L, 76% predicted. All other lung volumes are within normal limits. Diffusion capacity by carbon monoxide is at the lower limit of normal at 73% predicted. The airway resistance is elevated. Compared to previous pulmonary function tests from 02/01/2018, there has been no significant change. Impression: Irreversible moderately severe mixed ventilatory defect with relatively preserved diffusion capacity
== END ==
PROVIDERS: Family Provider Family Medicine; PCP Family Medicine; Referring Provider Internal Medicine Critical Care Medicine; Visit Provider Internal Medicine Critical Care Medicine
DX: J44.9 Chronic obstructive pulmonary disease, unspecified (principal); G47.31 Primary central sleep apnea
CPT/HCPCS: 94060; 94726; 94729

== ENCOUNTER → 2018-10-24 12:45 | Outpatient (CLI) | payer MEDICARE, SELFPAY ==
[2018-04-19 10:17] VITALS: BMI 27.7
[2018-07-24 11:01] VITALS: BMI 31.8
[2018-10-24 13:02] VITALS: PULSE 65; PULSE 73; PULSE 75; PULSE 79; PULSE 80; PULSE 94; O2SAT 92; O2SAT 93; O2SAT 94; O2SAT 95; O2SAT 96
--- NOTE | 2018-10-25 09:33 | WT_ITS ---
PSN 6 Minute Walk Test - 6 Minute Walk Test 6 Minute Walk Test: 6 Minute Walk Test PSN:6-Minute Walk Test Start: 10/24/18 13:02 Freq: Status: Active Protocol: [id number] Document 10/24/18 13:02 [facility] (Rec: 10/24/18 13:05 [facility] [id number]) 6 Minute Walk Test Date Performed 10/24/18 Time Performed 12:50 Height 5 ft 11 in Weight: 200 lb Weight in Pounds 200.[address]: Davide Riley Assistive device used: None Pre-test Oxygen Delivery Method Room Air Pulse Ox (%) 94 Pulse Rate (60-100 beats/min) 65 Dyspnea David Scale (0-10) 1 Exertion David Scale (6-20) 11 1st minute Oxygen Delivery Method Room Air Pulse Ox (%) 95 Pulse Rate (60-100 beats/min) 73 2nd minute Oxygen Delivery Method Room Air Pulse Ox (%) 92 Pulse Rate (60-100 beats/min) 75 3rd minute Oxygen Delivery Method Room Air Pulse Ox (%) 93 Pulse Rate (60-100 beats/min) 80 4th minute Oxygen Delivery Method Room Air Pulse Ox (%) 94 Pulse Rate (60-100 beats/min) 94 Dyspnea David Scale (0-10) 82 5th minute Oxygen Delivery Method Room Air Pulse Ox (%) 96 Pulse Rate (60-100 beats/min) 79 6th minute Oxygen Delivery Method Room Air Pulse Ox (%) 93 Pulse Rate (60-100 beats/min) 79 Post-test Oxygen Delivery Method Room Air Pulse Ox (%) 94 Pulse Rate (60-100 beats/min) 73 Dyspnea David Scale (0-10) 2 Exertion David Scale (6-20) 14 Full Laps Walked 14 Partial Lap, Number of Tiles Walked 6 Total Distance Walked (ft) 832 - Interpretation Interpretation: The patient ambulated 832 feet over the course of 6 minutes beginning on room air without assistive devices or breaks. Pretesting oxygen saturation was noted to be 94% on room air. With ambulation, the lynne oxygen saturation was 92%. There was no evidence of significant exertional oxygen desaturation. - Recommendations Recommendations: There is no indication for the use of supplemental oxygen at this time.
== END ==
PROVIDERS: Family Provider Family Medicine; PCP Family Medicine; Referring Provider Internal Medicine Critical Care Medicine; Visit Provider Internal Medicine Critical Care Medicine
DX: G47.31 Primary central sleep apnea (principal); J44.9 Chronic obstructive pulmonary disease, unspecified
CPT/HCPCS: 94618

== ENCOUNTER 2019-07-25 22:36 | Observation (INO) | payer MEDICARE, SELFPAY ==
[2018-07-24 11:01] VITALS: BMI 31.8
[2019-07-25 22:36] VITALS: BP 139/78; PULSE 53; RESP 18; TEMP 36.6; O2SAT 93; BMI 29.5
[2019-07-25 22:38] VITALS: BP 127/64; PULSE 59; RESP 20; O2SAT 95
--- NOTE | 2019-07-25 22:38 | RAD_ITS ---
STUDY: X-RAY CHEST REASON FOR EXAM: Male, 78 years old. Stroke, shortness of breath. TECHNIQUE: Single AP portable view of the chest. COMPARISON: 11/05/2014. FINDINGS: Chronic elevation of the right hemidiaphragm. The lungs are clear and expanded. There is no demonstrated pleural abnormality. Normal size heart. 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 Normal mediastinum and lucio. Normal visualized pulmonary arteries. Normal visualized aortic arch and descending thoracic aorta. 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 Soft tissues and bony structures are otherwise unremarkable. RAD/Chest 1 View IMPRESSION: No acute findings. Electronically Signed: She Arcos MD at 23:50 EDT Tel , Service support ,
--- NOTE | 2019-07-25 22:38 | EKG12_ITS ---
Test Reason : STROKE Blood Pressure : / mmHG Vent. Rate : 054 BPM Atrial Rate : 054 BPM P-R Int : 198 ms QRS Dur : 060 ms QT Int : 500 ms P-R-T Axes : 000 020 057 degrees QTc Int : 474 ms Sinus bradycardia Septal infarct , age undetermined Abnormal ECG Confirmed by ALMA GRAHAM, MARIJA ([id number]), script editor SLOANE PAGE ([id number]) on 07/27/2019 11:15:47 AM Referred By: Confirmed By:MARIJA MARQUEZ MD
--- NOTE | 2019-07-25 22:38 | CT_ITS ---
We are attempting to reach an attending provider to discuss findings. An addendum with communication details will be sent when the communication is complete. STUDY: CT BRAIN WITHOUT CONTRAST REASON FOR EXAM: Male, 78 years old. POSS STROKE. RADIATION DOSAGE (If Supplied By Facility): CTDIvol = ( 44.99 ) mGy, DLP = ( 745.49 ) mGycm TECHNIQUE: Transaxial CT imaging of the brain was performed without administration of intravenous contrast material. Individualized dose optimization techniques were used for this CT. COMPARISON: CT head 04/16/2014 FINDINGS: Normal soft tissue structures. Normal calvarium. There are stable central and cortical involutional changes. There are stable deep white matter periventricular hypodensities. Stable punctate hypodensities within the basal ganglia. There are extensive vascular arterial calcifications. Normal basal ganglia and thalami. Normal brainstem. Normal cerebellum. There is no intracranial hemorrhage. Normal visualized paranasal sinuses. CT/Brain/Head without Contrast IMPRESSION: Stable central and cortical involutional changes Stable old bilateral deep white matter small vessel ischemic changes Stable punctate old ischemic changes within the basal ganglia Stable extensive arterial vascular calcifications Electronically Signed: Bud Todd, at 23:03 EDT Tel , Service support ,
[2019-07-25 22:54] LABS: Absolute Lymphocyte Count 1.05 X10^3/uL (0.83-4.51); Absolute Neutrophil Count 10.2 X10^3/uL (2.0-7.7); Basophil# 0.06 X10^3/uL; Basophil% 0.5 % (0-1); Eosinophil# 0.13 X10^3/uL; Eosinophils% 1.1 % (0-5); Hematocrit 44.5 % (40-54); Hemoglobin 14.5 g/dL (13.0-16.5); Lymphocyte # 1.05 X10^3/ul (4.0); Lymphocyte % 8.7 % (19-41); Mean Corp Hgb Conc 32.6 g/dL (32-36); Mean Corpuscular Hgb 30.1 pg (27.0-32.0); Mean Corpuscular Volume 92.3 fL (80-94); Mean Platelet Vol. 9.2 fl (6.2-12.0); Monocyte# 0.55 X10^3/uL; Monocyte% 4.6 % (0-10); NRBC Flagged by Analyzer 0 % (0-5); Neutrophil # 10.19 X10^3/uL (2.7-7.7); Neutrophil % 84.7 % (47-70); Platelet Count 215 K/mm3 (150-450); Red Blood Count 4.82 M/mm3 (4.6-6.2)
--- NOTE | 2019-07-25 22:54 | CT_ITS ---
We are attempting to reach an attending provider to discuss findings. An addendum with communication details will be sent when the communication is complete. STUDY: CTA HEAD AND NECK WITH CONTRAST REASON FOR EXAM: Male, 78 years old. NEURO DEFICIT, ACUTE, STROKE SUSPECTED RADIATION DOSAGE (If Supplied By Facility): CTDIvol = ( 26.305 ) mGy, DLP = ( 719.55 ) mGycm TECHNIQUE: CT angiography was performed with a multi-detector CT scanner. Data acquisition was obtained from the skull base through the vertex following intravenous administration of IV 100 ML ISOVUE 370. MIP images were reconstructed from the axial data set. Post-processing of the angiographic images was performed, with multiplanar reformation and 3D reconstruction. Individualized dose optimization techniques were used for this CT. COMPARISON: No relevant priors. FINDINGS: Normal bilateral petrous carotid arteries. Atherosclerotic calcification of the cavernous carotid arteries bilaterally. No demonstrated stenosis. Normal bilateral anterior cerebral arteries. Normal intact anterior communicating artery (ACOM). Atherosclerotic calcification of the M1 segments of the middle cerebral arteries. Mild atherosclerotic narrowing of the M1 segment of the right middle cerebral artery. Left MCA is patent. Nonvisualized posterior communicating arteries. Mild stenosis of the left distal vertebral artery. Mild atherosclerotic disease of the intracranial vertebral arteries bilaterally. Normal basilar artery with a normal basilar bifurcation. The visualized bilateral superior cerebellar (SCA) arteries are normal. Mild stenosis of the P1 segment of the right posterior cerebral artery. Normal bilateral P2 and visualized P3 segments of the posterior cerebral arteries. There is no demonstrated aneurysm of the sitka of Gill. AORTIC ARCH: Moderate atheroma of the aortic arch. Atheromatous disease of the origin of the left subclavian artery. RIGHT CAROTID ARTERIES: Normal right common carotid artery (CCA). There is moderate atherosclerotic plaque formation of the carotid bulb without stenosis. Mild calcific plaque of the right internal carotid (ICA) artery without stenosis. Normal visualized cervical portion of the right internal carotid artery. Normal origin of the right external carotid artery (ECA). LEFT CAROTID ARTERIES: Normal left common carotid artery (CCA). There is moderate atherosclerotic plaque formation of the carotid bulb without stenosis. Normal origin of the left internal carotid (ICA) artery without stenosis. Normal visualized cervical portion of the left internal carotid artery. Normal origin of the left external carotid artery (ECA). VERTEBRAL ARTERIES: Normal bilateral vertebral arteries. CT/CTA Head AND Neck W/ Contrast IMPRESSION: 1. Moderately extensive atherosclerotic disease without significant narrowing. 2. Mild narrowing and one segment right MCA. 3. Mild stenosis P1 segment right LIDDER. 4. Calcific plaque of the carotid bulbs without stenosis. Electronically Signed: She Arcos MD at 23:42 EDT Tel , Service support ,
[2019-07-25 23:04] LABS: Partial Thromboplast Time 26.4 Seconds (24.1-36.2); Prothrombin Time (Protime)PT. 12.7 SECONDS (11.7-14.9)
[2019-07-25 23:07] VITALS: BMI 29.5
[2019-07-25 23:08] VITALS: BP 138/74; PULSE 58; RESP 19; O2SAT 95
--- NOTE | 2019-07-25 23:14 | ED.VISSUMM ---
- ER Visit Summary Date of Service: 07/25/19 Chief Complaint: Stroke symptoms History of Present Illness: The patient is a 78 M presenting with strokelike symptoms. Patient states he went to bed around 4 AM this morning feeling well. He woke up around noon feeling dizzy. At that time he had right arm weakness. Family did not notice this throughout the day. They then noticed later on that he had a right facial droop, right-sided weakness, slurred speech. EMS was called. On their arrival his blood pressure was elevated. He has a history of previous stroke. He is not on anticoagulants. Physical Examination: Vitals are stable. Patient is afebrile. Alert no acute distress. HEENT exam is unremarkable. Neck is supple. Lungs are clear and equal bilaterally. Heart is regular rate and rhythm. Abdomen is soft nontender nondistended. Extremities are unremarkable. Skin is warm and dry. NIH 2 for dysarthria, right facial droop Remainder of exam is unremarkable. Emergency Department Course and Treatment: Discussed with [facility] neurology on patient's arrival. Due to the onset of his symptoms being unclear last known well 4 AM patient is not a TPA candidate at this time, recommend CTA head and neck to rule out LVO. CT head shows no acute hemorrhage. EKG is sinus bradycardia rate of 54. CBC is normal except white count 12.0. Chemistries show glucose 115, BUN 24. INR 1.0. Troponin is negative. CTA head and neck show Moderately extensive atherosclerotic disease without significant narrowing. Mild narrowing and one segment right MCA. Mild stenosis P1 segment right FORESTRY HUNTER. Calcific plaque of the carotid bulbs without stenosis. On reevaluation, patient's NIH continues to be 2. Discussed with the hospitalist for admission. Disposition: Admission Impression: CVA This note was generated with [employer] dictation software. It may contain incorrect words, spelling, and punctuation that were not noted in review of the chart prior to signing ED Disposition - Plan for ED Patient: Referrals: Shayne Moncada MD [Primary Care Provider] -
[2019-07-25 23:15] LABS: Anion Gap 5 (5-15); BUN 24 mg/dL (7-18); BUN/Creat Ratio 26.7 RATIO (10-20); Calcium,Total 9.3 mg/dL (8.5-10.1); Chloride 106 mmol/L (98-107); EST Glomerular Filtration Rate 86 mL/min (>60); Est Glom Filt Rate - Afr Amer 105 mL/min (>60); Estimated Creatinine Clearance 66.55 ml/min; Glucose 115 mg/dL (74-106); Sodium Level 142 mmol/L (136-145)
[2019-07-25 23:30] VITALS: BP 135/61; PULSE 58; RESP 20; TEMP 36.6; O2SAT 96
--- NOTE | 2019-07-25 23:52 | PCM.HP.STD ---
Problem List (1) Stroke-like symptoms Status: Acute (2) Prostate CA Status: Chronic (3) FREEDMAN (dyspnea on exertion) Status: Inactive (4) Central sleep apnea Status: Chronic (5) Stage 2 moderate COPD by GOLD classification Status: Chronic (6) HTN (hypertension) Status: Chronic (7) Hoarseness Status: Chronic (8) left vocal cord paralysis Status: Chronic History of Present Illness Date of Admission: 07/25/19 Chief Complaint: Right arm weakness The patient is a 78 year old M history of prostate cancer status post radiation; and stroke who presents emergency department with said right-sided weakness. Patient slept at around 4 AM. He woke up around 12 noon and he noticed right-sided weakness. Associated for symptoms is slurred speech. Also patient felt an imbalance on his feet. Stroke neurologist was consulted by emergency department doctor. Per emergency department doctor stroke neurologist recommend that if there is no large vessel occlusion patient can stay at the hospital for inpatient work-up. Past Medical History Past Medical History (Chronic Problems): Chronic Problems (Last Reviewed 07/26/19 @ 01:[address] Delgado Barraza MD) Prostate CA (Chronic) Central sleep apnea (Chronic) Stage 2 moderate COPD by GOLD classification (Chronic) HTN (hypertension) (Chronic) Hoarseness (Chronic) left vocal cord paralysis (Chronic) Medical History: Medical History (Last Reviewed 07/26/19 @ 06:[address] Delgado Barraza MD) Prostate CA (Chronic) C61 Stroke (Acute) I63.9 FREEDMAN (dyspnea on exertion) (Inactive) R06.09 Central sleep apnea (Chronic) G47.31 Stage 2 moderate COPD by GOLD classification (Chronic) J44.9 HTN (hypertension) (Chronic) I10 Hoarseness (Chronic) R49.0 left vocal cord paralysis (Chronic) Allergies oxycodone [From Percodan] Allergy (Verified 07/25/19 23:06) Other Home Medications: Ambulatory Orders Medication Instructions Recorded amlodipine 10 mg tablet 10 mg PO QDAY 90 Days #90 tab 06/09/17 hydrochlorothiazide 25 mg tablet 25 mg PO QDAY 06/09/17 nitroglycerin 0.3 mg sublingual 0.3 mg SUBLINGUAL Q5-15M PRN 06/09/17 tablet potassium chloride 20 mEq 20 meq PO QDAY 90 Days #90 tab 06/09/17 tablet,extended release(part/cryst) Aspirin [Aspir 81] 81 mg PO DAILY 07/06/18 Atenolol [Tenormin (beta karis)] 50 mg PO DAILY tab 07/25/18 Atorvastatin Calcium [Lipitor] 40 mg PO DAILY tab 07/25/18 Famotidine [Pepcid] 20 mg PO DAILY tab 07/25/18 Spironolactone [Aldactone] 25 mg PO DAILY tab 07/25/18 Acetaminophen [Tylenol] 1,000 mg PO Q8 PRN 07/25/19 Levothyroxine [Synthroid] 50 mcg PO DAILY 07/25/19 Paroxetine [Paxil] 20 mg PO DAILY 07/25/19 Surgical History: Surgical History (Last Reviewed 07/26/19 @ 06:[address] Delgado Barraza MD) Cataract extraction status Z98.49 History of hip replacement Z96.649 History of open heart surgery Z98.890 Smoking Status: Former smoker - *Family History Maternal History Items: - - He reported that his mother was healthy. His mother lived to the age of 96 and from old age. Paternal History Items: Cancer - His father had prostate cancer Review of Systems Constitutional: Denies: Chills, Fever, Weight Change HEENT: Denies: Head Aches, Sinus Congestion, Sinus Drainage Cardiovascular: Denies: Chest Pain, Palpitations Respiratory: Denies: Cough, Shortness of breath at rest, Sputum production Gastrointestinal: Denies: Abdominal Pain, Nausea, Vomiting Genitourinary: Denies: Dysuria Musculoskeletal: Denies: Joint Pain, Joint Tenderness Skin: Denies: Rash, Wounds Neurological: Reports: Balance problems, Blurred vision, Change in Speech. Denies: Focal weakness, Numbness, Tingling Psychiatric: Denies: Anxiety, Depression, Homicidal Ideations, Suicidal Ideations Hematologic/ Lymphatic: Denies: Easy Bruising, Easy Bleeding VTE Information - Inpt Only VTE Present on Admission: No VTE Mechan Device Prophylaxis: None VTE Pharm Prophylaxis ordered?: Yes Patient Problems: Active and Suspected Problems (Last Reviewed 07/26/19 @ 01:[address] Delgado Barraza MD) Stroke-like symptoms (Acute) - Physical Exam Vitals/I&O's: Vital Signs Temp Pulse Resp BP Pulse Ox 98 F 58 L 19 H 138/74 H 95 07/25/19 22:36 07/25/19 23:08 07/25/19 23:08 07/25/19 23:08 07/25/19 23:08 Oxygen Delivery Method Room Air Weight: 90.6 kg Body Mass Index (BMI) 29.5 Finger Stick Blood Glucose 104 General: Alert, Oriented x3, Cooperative HEENT: Atraumatic, PERRLA, EOMI, Normocephalic Neck: Supple, No JVD, Negative Carotid Bruits Lungs: Clear to auscultation, Normal air movement Cardiovascular: Regular rate, Regular Rhythm, Normal S1, Normal S2, No murmurs Abdomen: Bowel Sounds Present, Soft, Non Tender Extremities: No edema, Capillary Refill Less than 3 Seconds Skin: No rashes, No breakdown Musculoskeletal: No Tenderness to Palpation of Joints or Extremities Neurological: Cranial nerves II-XII grossly intact - Except slurry speech; right facial droop. Also patient is hard of hearing (chronic); and uses hearing aid. Patient have difficulty with [id number] test using the heel of his right leg., Motor Exam 5/5 strength throughout, Facial Droop, Slurred Speech Psych/Mental Status: Normal Affect, Appropriate Laboratory Results 07/25/19 22:48: WBC 12.0 H, RBC 4.82, Hgb 14.5, Hct 44.5, MCV 92.3, MCH 30.1, MCHC 32.6, RDW Std Deviation 47.0 H, RDW Coeff of Erica 14.0, Plt Count 215, MPV 9.2, Immature Gran % (Auto) 0.400, Neut % (Auto) 84.7 H, Lymph % (Auto) 8.7 L, Hickory % (Auto) 4.6, Eos % (Auto) 1.1, Baso % (Auto) 0.5, Absolute Neuts (auto) 10.2 H, Absolute Lymphs (auto) 1.05, Nucleated RBC % 0 07/25/19 22:48: PT 12.7, INR 1.0, APTT 26.4 07/25/19 22:48: Sodium 142, Potassium 4.0, Chloride 106, Carbon Dioxide 31.0, Anion Gap 5, BUN 24 H, Creatinine 0.90, Estim Creat Clear Calc 66.55, Est GFR (MDRD) Af Amer 105, Est GFR (MDRD) Non-Af 86, BUN/Creatinine Ratio 26.7 H, Glucose 115 H, Calcium 9.3, Troponin I < 0.015 Current Medications Labetalol HCl (Trandate) 20 mg IV X1 PRN PRN Reason: BLOOD PRESSURE Assessment/Plan All Active Problems (Last Reviewed 07/26/19 @ 01:[address] Delgado Barraza MD) Stroke-like symptoms (Acute) Stroke (Acute) The patient is a 78 year old M history of prostate cancer status post radiation; and stroke who presents emergency department with right-sided weakness; slurred speech; blurry vision and disequilibrium. Strokelike symptoms NINDS NIH Scale was 2. Was not a candidate for tPA per discussion between a tele-neurologist and emergency department doctor. His NIH was low; and patient's last known well was more than [address] of the head did not show acute stroke. -Check Hba1c, Lipid level Physical therapy, occupational therapy and speech therapy to work with patient. N.p.o. until bedside swallow eval. Daily aspirin. High intensity statin Lipid profile and A1c ordered. Permissive hypertension. Control blood pressure with labetalol for systolic blood pressure of more than 220 or diastolic blood pressure of more than 120. MRI of brain in a.m. Echocardiogram ordered. DVT Prophylaxis Subcutaneous Lovenox. OBSV E&M: [id number] Initial observation care L3
[2019-07-26] VITALS (17 sets, daily range): BP systolic 122–156; BP diastolic 52–79; PULSE 48–66; RESP 16–18; TEMP 36.5–37; O2SAT 94–97; BMI 27.3
--- NOTE | 2019-07-26 01:32 | ECHOD_ITS ---
Reason For Study: TIA/CVA Procedure This was a 2D Doppler, Color Flow transthoracic echocardiogram. Exam performed portable in patient room. Left Ventricle Normal LV size. The estimated ejection fraction is 60 %. No evidence for diastolic dysfunction. No regional wall motion abnormalities noted. Right Ventricle Normal RV size. Normal systolic function. Atria Normal left atrium. Normal right atrium. No doppler evidence for ASD. Mitral Valve There is no stenosis. Trivial mitral valve insufficiency. Tricuspid Valve There is no tricuspid stenosis. Trivial tricuspid valve insufficiency. Unable to estimate RV systolic pressure due to insufficient tricuspid regurgitant envelope. Aortic Valve Trisinus/trileaflet aortic valve. There is no aortic stenosis. No aortic valve insufficiency. Pulmonic Valve There is no pulmonic valvular stenosis. No pulmonic valve insufficiency. Great Vessels Normal aortic root. Pericardium/Pleural No pericardial effusion. Medication Performed a rapid injection of agitated mix of 9 cc saline and 1cc air to assess for atrial septal defect. MMode/2D Measurements & Calculations RVDd: 3.8 cm Ao root diam: 3.8 cm LAV(MOD-sp4): 49.9 ml LA A4 area: 18.3 cm2 LA dimension(2D): 5.1 cm RA A4 area: 14.1 cm2 Time Measurements MV dec time: 0.31 sec Doppler Measurements & Calculations MV E max larissa: 75.4 cm/sec Ao V2 max: 117.5 cm/sec LV V1 max: 109.6 cm/sec MV A max larissa: 69.6 cm/sec Ao max P.5 mmHg LV V1 max P.8 mmHg MV E/A: 1.1 PA V2 max: 91.6 cm/sec TR max larissa: 239.5 cm/sec TR max P.9 mmHg Interpretation Summary The estimated ejection fraction is 60 %. No evidence for diastolic dysfunction. Trivial mitral valve insufficiency. Ordering Physician: Delgado Barraza Referring Physician: DUNCAN ZAIDI Performed By: Amanda De Los Santos, MAIDA, RVT
--- NOTE | 2019-07-26 01:32 | MRI_ITS ---
We are attempting to reach an attending provider to discuss findings. An addendum with communication details will be sent when the communication is complete. STUDY: MRI BRAIN WITHOUT CONTRAST REASON FOR EXAM: Male, 78 years old. slurred speech, rt sided weakness, imbalance ,double vision , hx prior cva TECHNIQUE: Standardized multiplanar fat and water weighted pulse sequences were obtained. COMPARISON: CT 07/25/2019, MRI 04/19/2014 FINDINGS: There is mild cerebral atrophy with widening of the extra-axial spaces and ventricular dilatation. There are a limited number of small white matter hyperintensities, distributed throughout the deep white matter tracts of the cerebral hemispheres, consistent with mild chronic white matter ischemic changes. Subtle hyperintensity of the posterior lateral left side of the brainstem extending into the left cerebral peduncle demonstrates some restricted diffusion consistent with a subacute infarct. Normal T2* images of the brain without demonstrated susceptibility artifact. There is no demonstrated hemosiderin stain. Normal bilateral basal ganglia. Normal thalami. There is no extra-axial fluid accumulation. Normal flow voids within the major intracranial circulation suggesting patency by spin echo criteria. Normal sella turcica, pituitary gland, infundibular stalk, optic chiasm and hypothalamus. Normal tectal plate and pineal gland. Normal midbrain, hugo and medulla. Normal cerebellum. Normal basal cisterns. Normal bilateral temporal bones. Normal bilateral internal auditory canals. There are bilateral ocular lens implants with otherwise normal intraorbital contents. Normal visualized paranasal sinuses. Normal calvarium and skull base. Normal visualized soft tissue structures. Normal visualized upper cervical spine. MRI/Brain without Contrast IMPRESSION: Involutional changes of the brain, as described above. Subacute infarct of the left side of the brainstem extending to the left cerebral peduncle. Electronically Signed: Sadi Joseph MD at 9:30 EDT Tel , Service support ,
[2019-07-26] MEDS: Atorvastatin Calcium 40 MG Tablet PO ×2 (02:30→22:10)
[2019-07-26] MEDS: Levothyroxine 50 MCG Tablet PO (05:20)
[2019-07-26 06:49] LABS: Absolute Lymphocyte Count 1.18 X10^3/uL (0.83-4.51); Absolute Neutrophil Count 8.5 X10^3/uL (2.0-7.7); Basophil# 0.06 X10^3/uL; Basophil% 0.6 % (0-1); Eosinophil# 0.17 X10^3/uL; Eosinophils% 1.6 % (0-5); Hematocrit 44.2 % (40-54); Hemoglobin 14.4 g/dL (13.0-16.5); Lymphocyte # 1.18 X10^3/ul (4.0); Mean Corp Hgb Conc 32.6 g/dL (32-36); Mean Corpuscular Hgb 30.4 pg (27.0-32.0); Mean Corpuscular Volume 93.2 fL (80-94); Mean Platelet Vol. 9.5 fl (6.2-12.0); Monocyte# 0.75 X10^3/uL; NRBC Flagged by Analyzer 0 % (0-5); Neutrophil # 8.51 X10^3/uL (2.7-7.7); Neutrophil % 79.2 % (47-70); Platelet Count 207 K/mm3 (150-450); RBC Distribution Width CV 13.9 % (11.6-14.6); RBC Distribution Width SD 47.4 fl (35.1-43.9); Red Blood Count 4.74 M/mm3 (4.6-6.2); White Blood Count 10.7 K/mm3 (4.4-11.0)
[2019-07-26 07:24] LABS: Anion Gap 6 (5-15); BUN 21 mg/dL (7-18); BUN/Creat Ratio 27.7 RATIO (10-20); Calcium,Total 9.3 mg/dL (8.5-10.1); Chloride 106 mmol/L (98-107); Cholesterol 143 mg/dL (200); Creatinine, Serum 0.76 mg/dL (0.70-1.30); EST Glomerular Filtration Rate 105 mL/min (>60); Est Glom Filt Rate - Afr Amer 128 mL/min (>60); Glucose 113 mg/dL (74-106); High Density Lipoprotein 38 mg/dL; Potassium 3.7 mmol/L (3.5-5.1); Sodium Level 139 mmol/L (136-145); Triglycerides 116 mg/dL; Very Low Density Lipoprotein 23 mg/dL (5-40)
[2019-07-26 07:26] LABS: Hemoglobin A1c 5.3 % (3.8-5.6)
--- NOTE | 2019-07-26 09:53 | CASEMGMT ---
Assessment- SW met with patient, introduced self and role at [facility]. He was in agreement with completing assessment with SW. SW also confirmed patient's address and phone number. He could not remember his number, but the number listed is his 's number. Living situation- Patient lives with his in a 1 story home with 1 entry step. PCP: Dr Shayne Moncada Specialists: None Pharmacy: [facility] DME: Walker, cane, shower chair, and grab bars ADL's/IADL's: Patient said he is independent with bathing, dressing, medications, he drives, helps with with cleaning and cooking. He does not use any assistive devices to ambulate. Past SNF/rehab: None Past HH: Yes, but he does not remember the name as it was awhile ago LW: Patient did not know POA: Patient did not know Plan: Patient feels he will be fine to return home. He had a Stroke a year ago and a hip replacement. He went to outpatient therapy at [facility]. Juliet DUTTON BEAMSTER
[2019-07-26] MEDS: Aspirin 81 MG TAB.CHEW PO (10:08)
[2019-07-26] MEDS: Spironolactone 25 MG Tablet PO (10:08)
[2019-07-26] MEDS: Famotidine 20 MG Tablet PO (10:08)
[2019-07-26] MEDS: Enoxaparin 40 MG/0.4 ML Syringe SC (10:10)
--- NOTE | 2019-07-26 10:27 | CASEMGMT ---
SW completed a PHQ 9 with patient as he had a Subacute Stroke per the MRI. He scored a 2 which indicates minimal depression. Juliet DUTTON MSW
--- NOTE | 2019-07-26 11:01 | CASEMGMT ---
PT spoke with SW and said patient did not do well with therapy and he should go somewhere for rehab. SW met with patient again and discussed d/c plan. SW explained therapy said he did not do well with walking and he should go somewhere for rehab. SW told him about the local facilities including TCU. He was hesitant and feels he may be better going home where he can do his own exercises. SW told him he would get more therapy and have trained staff available all the time to help him until he gets stronger. He said he would think about it. He did give SW permission to talk with his . SW called patient's . Introduced self and role at [facility]. SW explained therapy's recommendations to go somewhere for rehab. SW told her about local facilities including TCU. SW told her patient is going to think about it. She did not really have any input. She asked if she could come see him and SW told her the hospital is still not allowing visitors. She asked if she could bring his cell phone to the hospital. SW told her to bring it to the main entrance and let them know who it is for and that he is on the PCU and they will get it to him. She asked SW to let him know this information. SW did let patient know his will bring in his cell phone. Physician then came into the room to talk with patient. When physician came out of the room he said patient did agree to TCU. Physician ordered a COVID test as this is required before admission to SNF. RACHELE also spoke with [facility] in TCU and she will have a bed for patient. She will start the pre-cert as soon as his therapy notes are in the computer. Plan: TCU pending COVID test results and insurance approval. Juliet DUTTON MSW
--- NOTE | 2019-07-26 16:28 | PCM.PROGNOTE ---
Patient Problems: Active and Suspected Problems (Last Reviewed 07/26/19 @ 06:[address] Delgado Barraza MD) Stroke-like symptoms (Acute) Subjective: Seen and examined today, he still is complaining of right arm weakness but he states this improved over what it was when he was admitted. Patient did not do well with PT and OT however today, I talked with him briefly about going to an extended care facility for short-term rehab-patient has consented to this at this time. Patient's MRI today showed involutional changes of the brain with a subacute infarct of the left side of the brainstem extending into the left cerebral peduncle. Patient has no complaints of lower extremity weakness, he states he feels the speech is somewhat affected from the stroke. - Physical Exam Vitals/I&O's: Vital Signs Temp Pulse Resp BP Pulse Ox 98.5 F 53 L 16 151/79 H 96 07/26/19 12:00 07/26/19 15:03 07/26/19 12:00 07/26/19 12:00 07/26/19 12:00 Oxygen Delivery Method Room Air Weight: 88.8 kg Body Mass Index (BMI) 27.3 Finger Stick Blood Glucose 104 Intake and Output for Last 24 Hours 07/24/19 07/25/19 07/26/19 23:59 23:59 23:59 Intake Total 290 / 290 Output Total 550 / 550 Balance -260 / -260 General: Alert, Oriented x3, Cooperative, No apparent distress, - - Patient is extremely hard of hearing HEENT: Atraumatic, PERRLA, EOMI, Normocephalic Oral: Moist Mucosa Neck: Supple, No JVD, Trachea Midline, Thyroid Normal Size and Texture Lungs: Clear to auscultation, Normal air movement, No rhonchi, No wheeze, No rales Cardiovascular: Regular rate, Regular Rhythm, Normal S1, Normal S2, No murmurs, PMI Normal, No rub noted, No Gallop Abdomen: Bowel Sounds Present, Soft, Non Tender, Non-Distended Extremities: No clubbing, No cyanosis, Capillary Refill Less than 3 Seconds Skin: No rashes, No breakdown Musculoskeletal: No Tenderness to Palpation of Joints or Extremities Neurological: Cranial nerves II-XII grossly intact, Neuro grossly intact, - - Decreased strength in the right upper extremity is noted, patient speech is somewhat garbled Psych/Mental Status: Normal Affect, Appropriate, Alert and oriented to time, place, person, mood and affect Laboratory Results 07/25/19 22:48: WBC 12.0 H, RBC 4.82, Hgb 14.5, Hct 44.5, MCV 92.3, MCH 30.1, MCHC 32.6, RDW Std Deviation 47.0 H, RDW Coeff of Erica 14.0, Plt Count 215, MPV 9.2, Immature Gran % (Auto) 0.400, Neut % (Auto) 84.7 H, Lymph % (Auto) 8.7 L, Labette % (Auto) 4.6, Eos % (Auto) 1.1, Baso % (Auto) 0.5, Absolute Neuts (auto) 10.2 H, Absolute Lymphs (auto) 1.05, Nucleated RBC % 0 07/25/19 22:48: PT 12.7, INR 1.0, APTT 26.4 07/25/19 22:48: Sodium 142, Potassium 4.0, Chloride 106, Carbon Dioxide 31.0, Anion Gap 5, BUN 24 H, Creatinine 0.90, Estim Creat Clear Calc 66.55, Est GFR (MDRD) Af Amer 105, Est GFR (MDRD) Non-Af 86, BUN/Creatinine Ratio 26.7 H, Glucose 115 H, Calcium 9.3, Troponin I < 0.015 07/26/19 06:30: Sodium 139, Potassium 3.7, Chloride 106, Carbon Dioxide 27.0, Anion Gap 6, BUN 21 H, Creatinine 0.76, Estim Creat Clear Calc 63.80, Est GFR (MDRD) Af Amer 128, Est GFR (MDRD) Non-Af 105, BUN/Creatinine Ratio 27.7 H, Glucose 113 H, Calcium 9.3, Triglycerides 116, Cholesterol 143, LDL Cholesterol 82, VLDL Cholesterol 23, HDL Cholesterol 38 L 07/26/19 06:30: WBC 10.7, RBC 4.74, Hgb 14.4, Hct 44.2, MCV 93.2, MCH 30.4, MCHC 32.6, RDW Std Deviation 47.4 H, RDW Coeff of Erica 13.9, Plt Count 207, MPV 9.5, Immature Gran % (Auto) 0.600, Neut % (Auto) 79.2 H, Lymph % (Auto) 11.0 L, Labette % (Auto) 7.0, Eos % (Auto) 1.6, Baso % (Auto) 0.6, Absolute Neuts (auto) 8.5 H, Absolute Lymphs (auto) 1.18, Nucleated RBC % 0 07/26/19 06:30: Hemoglobin A1c 5.3 07/26/19 11:25: COVID-19 (NIURKA) Not Detected Current Medications Acetaminophen (Tylenol) 650 mg PO Q6H PRN PRN PRN Reason: Pain Score 1-10/Temp > 100.7 F Aspirin (Aspirin, Baby) 81 mg PO DAILY@0800 [facility] Last Admin: 07/26/19 10:08 Dose: 81 mg Documented by: Atorvastatin Calcium (Lipitor) 40 mg PO QHS [facility] Last Admin: 07/26/19 02:30 Dose: 40 mg Documented by: Dextrose (D50w Syringe) 0 gm IV X1 PRN; Protocol PRN Reason: Hypoglycemia Enoxaparin Sodium (Lovenox) 40 mg SC DAILY [facility] Last Admin: 07/26/19 10:10 Dose: 40 mg Documented by: Famotidine (Pepcid) 20 mg PO DAILY [facility] Last Admin: 07/26/19 10:08 Dose: 20 mg Documented by: Glucagon () 1 mg IM .X1 PRN PRN Reason: Hypoglycemia Hydralazine HCl (Apresoline Iv) 5 mg IV Q30M PRN PRN Reason: to maintain BP goals Sodium Chloride () 250 mls @ 15 mls/hr IV .[id number] PRN PRN Reason: Additional IVPB Infusion Labetalol HCl (Trandate) 10 - 20 mg IV Q10M PRN PRN PRN Reason: to maintain BP goals Levothyroxine Sodium (Synthroid) 50 mcg PO DAILY@0600 [facility] Last Admin: 07/26/19 05:20 Dose: 50 mcg Documented by: Ondansetron HCl (Zofran) 4 mg IV Q8H PRN PRN PRN Reason: NAUSEA/VOMITING Potassium Chloride (K-Dur) 20 meq PO DAILY [facility] Last Admin: 07/26/19 10:08 Dose: 20 meq Documented by: Sodium Chloride () 10 - 40 ml IV UD PRN PRN Reason: SALINE FLUSH Spironolactone (Aldactone) 25 mg PO DAILY [facility] Last Admin: 07/26/19 10:08 Dose: 25 mg Documented by: Medical Necessity - Tobacco Use Smoking Status: Former smoker Assessment/Plan All Active Problems (Last Reviewed 07/26/19 @ 06:[address] Delgado Barraza MD) Stroke-like symptoms (Acute) Stroke (Acute) #1 acute left brainstem CVA-continue aspirin and Plavix, continue PT and OT, patient will need temporary placement in a detention facility for rehab services, I do not feel patient would benefit from seeing neurology at this time, patient's echocardiogram was unremarkable. She will be placed on Plavix in addition to 81 mg aspirin daily #2 debility secondary to acute CVA #3 chronic obstructive pulmonary disease #4 hypertension #5 chronic left vocal cord paralysis #6 hypothyroidism #7 hyperlipidemia OBSV E&M: 16868 Subsequent observation care L3
[2019-07-26] MEDS: Clopidogrel Bisulfate 75 MG Tablet PO (18:17)
[2019-07-27] VITALS (13 sets, daily range): BP systolic 137–147; BP diastolic 56–81; PULSE 55–82; RESP 16–18; TEMP 36.6–37.1; O2SAT 93–97; BMI 27.3
[2019-07-27] MEDS: Levothyroxine 50 MCG Tablet PO (06:11)
[2019-07-27] MEDS: Aspirin 81 MG TAB.CHEW PO (08:24)
[2019-07-27] MEDS: Famotidine 20 MG Tablet PO (10:44)
[2019-07-27] MEDS: Clopidogrel Bisulfate 75 MG Tablet PO (10:44)
[2019-07-27] MEDS: Spironolactone 25 MG Tablet PO (10:44)
[2019-07-27] MEDS: Enoxaparin 40 MG/0.4 ML Syringe SC (10:49)
--- NOTE | 2019-07-27 11:34 | CASEMGMT ---
Per therapy patient is worried about cost of TCU. RACHELE called patient's insurance and obtained his SNF benefits. Days 1-10 he is covered at 100%, days 11-20 he has a $25 a day co-pay, and days 21-100 he has a $50 a day co-pay. RACHELE met with patient and told him this information. He was relieved and in agreement with SNF. He was having some issues with Anxiety. He said normally someone just needs to drive him around and that helps. He also said Dr Moncada prescribes a medication for him. RACHELE told him that RACHELE will tell the physician and he may be able to prescribe something for him. RACHELE told patient that RACHELE will also call his and let her know about SNF coverage. RACHELE asked RN ANT to please notify physician about Anxiety. She did this through [employer]. RACHELE also notified RN. RACHELE called patient's and left her a voice mail requesting a return call. Juliet DUTTON MSW
--- NOTE | 2019-07-27 12:13 | PN_ITS ---
Patient Problems: Active and Suspected Problems (Last Reviewed 07/26/19 @ 06:[address] Delgado Barraza MD) Stroke-like symptoms (Acute) Subjective: Patient was seen and examined today, we are currently awaiting approval for the patient to go to an extended care facility for short-term rehab services. Patient's been complaining of anxiety symptoms today, he states at home he has been given Ativan to take for anxiety-I ordered Ativan half a milligram every 6 hours as needed anxiety and told the patient that he could ask for it if needed. Patient states that his right arm is stronger today, he still exhibits problems with speech-this is probably a mixture of pre-existing speech problems and speech problems secondary to his acute stroke. Objective: General: Alert, Oriented x3, Cooperative, No apparent distress, - - Patient is extremely hard of hearing HEENT: Atraumatic, PERRLA, EOMI, Normocephalic Oral: Moist Mucosa Neck: Supple, No JVD, Trachea Midline, Thyroid Normal Size and Texture Lungs: Clear to auscultation, Normal air movement, No rhonchi, No wheeze, No rales Cardiovascular: Regular rate, Regular Rhythm, Normal S1, Normal S2, No murmurs, PMI Normal, No rub noted, No Gallop Abdomen: Bowel Sounds Present, Soft, Non Tender, Non-Distended Extremities: No clubbing, No cyanosis, Capillary Refill Less than 3 Seconds Skin: No rashes, No breakdown Musculoskeletal: No Tenderness to Palpation of Joints or Extremities Neurological: Cranial nerves II-XII grossly intact, Neuro grossly intact, - - Decreased strength in the right upper extremity is noted-this is improved from yesterday, patient speech is somewhat garbled Psych/Mental Status: Normal Affect, Appropriate, Alert and oriented to time, place, person, mood and affect - Physical Exam Vitals/I&O's: Vital Signs Temp Pulse Resp BP Pulse Ox 98.4 F 82 18 140/57 H 94 07/27/19 10:07/27/19 11:00 07/27/19 10:00 07/27/19 10:07/27/19 10:00 Oxygen Delivery Method Room Air Weight: 88.8 kg Body Mass Index (BMI) 27.3 Finger Stick Blood Glucose 104 Intake and Output for Last 24 Hours 06/07/26/19 07/27/19 23:59 23:59 23:59 Intake Total 650 / 650 120 / 120 Output Total 825 / 825 150 / 150 Balance -175 / -175 -30 / -30 Laboratory Results 07/26/19 11:25: COVID-19 (NIURKA) Not Detected Current Medications Acetaminophen (Tylenol) 650 mg PO Q6H PRN PRN PRN Reason: Pain Score 1-10/Temp > 100.7 F Aspirin (Aspirin, Baby) 81 mg PO DAILY@0800 [facility] Last Admin: 07/27/19 08:24 Dose: 81 mg Documented by: Atorvastatin Calcium (Lipitor) 40 mg PO QHS [facility] Last Admin: 07/26/19 22:10 Dose: 40 mg Documented by: Clopidogrel Bisulfate (Plavix) 75 mg PO DAILY [facility] Last Admin: 07/27/19 10:44 Dose: 75 mg Documented by: Dextrose (D50w Syringe) 0 gm IV X1 PRN; Protocol PRN Reason: Hypoglycemia Enoxaparin Sodium (Lovenox) 40 mg SC DAILY [facility] Last Admin: 07/27/19 10:49 Dose: 40 mg Documented by: Famotidine (Pepcid) 20 mg PO DAILY [facility] Last Admin: 07/27/19 10:44 Dose: 20 mg Documented by: Glucagon () 1 mg IM .X1 PRN PRN Reason: Hypoglycemia Hydralazine HCl (Apresoline Iv) 5 mg IV Q30M PRN PRN Reason: to maintain BP goals Sodium Chloride () 250 mls @ 15 mls/hr IV .[id number] PRN PRN Reason: Additional IVPB Infusion Levothyroxine Sodium (Synthroid) 50 mcg PO DAILY@0600 [facility] Last Admin: 07/27/19 06:11 Dose: 50 mcg Documented by: Lorazepam (Ativan Intensol) 0.5 mg PO Q6H PRN PRN PRN Reason: ANXIETY Ondansetron HCl (Zofran) 4 mg IV Q8H PRN PRN PRN Reason: NAUSEA/VOMITING Potassium Chloride (K-Dur) 20 meq PO DAILY [facility] Last Admin: 07/27/19 10:44 Dose: 20 meq Documented by: Sodium Chloride () 10 - 40 ml IV UD PRN PRN Reason: SALINE FLUSH Spironolactone (Aldactone) 25 mg PO DAILY [facility] Last Admin: 07/27/19 10:44 Dose: 25 mg Documented by: Medical Necessity - Tobacco Use Smoking Status: Former smoker Assessment/Plan All Active Problems (Last Reviewed 07/26/19 @ 06:[address] Delgado Barraza MD) Stroke-like symptoms (Acute) Stroke (Acute) #1 acute left brainstem CVA-continue aspirin and Plavix, continue PT and OT, patient will need [facility] placement in a [facility] for [facility]hab services, we are currently awaiting approval for the patient to go to an extended care facility for short-term rehab. #2 debility secondary to acute CVA #3 chronic obstructive pulmonary disease #4 hypertension #5 chronic left vocal cord paralysis #6 hypothyroidism #7 hyperlipidemia #8 anxiety-patient was placed on Ativan 1/2 mg every 6 hours as needed anxiety. #9 dysarthria-probably secondary to acute CVA on a backdrop of left vocal cord paralysis which is chronic. Speech therapy is seeing the patient Inpatient E&M: 23070 Subs Hosp L2
--- NOTE | 2019-07-27 14:00 | CASEMGMT ---
Addendum entered by Lalita Giles 07/27/19 15:44: Attempted again to awake pt without success, pt is sleeping without distress. This RN CM attempted to reach pt's again via her cell phone without success to complete YOUSSEF form. This RN CM will attempt again in am. Adam GUAN CM Original Note: This RN CM to room with YOUSSEF form at this time and pt is sleeping without distress and does not awaken to loud knock on door or loud verbal stimuli at this time. 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 This RN CM did also try to reach pt's to complete YOUSSEF form without success at this time. Message was left with to call this RN CM back in regards to same. Adam GUAN CM
--- NOTE | 2019-07-27 14:03 | CASEMGMT ---
RACHELE received a call from [facility] and she received insurance approval. However, she will not have a bed until tomorrow. Physician was notified. RACHELE had also left a message for patient's to call RACHELE back. Plan: [facility] TC Tuesday. Green sheet on chart Juliet AYALA
--- NOTE | 2019-07-27 14:20 | CASEMGMT ---
SW called patient's and let her know patient was approved to go to TCU. SW let her know he will go tomorrow. SW also let her know the coverage for jail. Plan: [facility] Tuesday. Juliet AYALA
[2019-07-27] MEDS: LORazepam 2 MG/ML Bottle 0.5 MG PO (18:18)
[2019-07-27] MEDS: Atorvastatin Calcium 40 MG Tablet PO (22:12)
[2019-07-28] VITALS (10 sets, daily range): BP systolic 118–145; BP diastolic 74–90; PULSE 58–95; RESP 16–18; TEMP 36.5–36.7; O2SAT 90–94; BMI 27.3
[2019-07-28] MEDS: Levothyroxine 50 MCG Tablet PO (06:22)
[2019-07-28] MEDS: Enoxaparin 40 MG/0.4 ML Syringe SC (09:23)
[2019-07-28] MEDS: Aspirin 81 MG TAB.CHEW PO (09:25)
[2019-07-28] MEDS: Clopidogrel Bisulfate 75 MG Tablet PO (09:25)
[2019-07-28] MEDS: Spironolactone 25 MG Tablet PO (09:25)
[2019-07-28] MEDS: Famotidine 20 MG Tablet PO (09:25)
--- NOTE | 2019-07-28 09:50 | CASEMGMT ---
This FREIDA CAIN to room with YOUSSEF form at this time, explanation done-pt voices understanding, and signs YOUSSEF form at this time. Original to chart and copy to pt at this time. Pt voices no further questions/concerns/needs at this time. Pt awaiting dispo to TCU at this time. SStaten FREIDA CAIN
--- NOTE | 2019-07-28 11:23 | PCM.TXEXTCAR ---
- Diet 07/26/19 01:32 Diet: Cardiac/Low Cholesterol Food consistency:: Mechanical Soft/Ground Liquid Consistency:: [place] Thick Diet Comments: 1:1 Supervision - Routine Orders/Code Status Code Status: Full Code - Therapies Weight Bearing: Full weight bearing Physical Therapy: Eval and Treat Occupational Therapy: Eval and Treat Speech Therapy: Eval and Treat - Problem/Diagnosis (1) Anxiety Status: Chronic Current Visit: Yes (2) Dysarthria Status: Acute Current Visit: Yes (3) Stroke Status: Acute Comment: left brainstem Current Visit: No (4) Stage 2 moderate COPD by GOLD classification Status: Chronic Current Visit: No (5) HTN (hypertension) Status: Chronic Current Visit: No (6) left vocal cord paralysis Status: Chronic Current Visit: No - Allergies/Procedures Done in Hospital Allergies/Adverse Reactions: Allergies oxycodone [From Percodan] Allergy (Verified 07/25/19 23:06) Other Procedures: 2-D Echocardiogram - Type of Care/Length of Stay Estimated LOS: Convalescent Care Less Than 30 days Type of Care Needed: Skilled Rehab Potential: Good Prognosis: Good - Additional Orders/Day of Discharge H&P will serve as current which was dated: 07/25/19 Day of Discharge: 07/28/19 - Dietary and Speech Recommendations Dietitian Recommendations/Changes: Continue Cardiac/Low Cholesterol diet. Will provide ONS as indicated if intake poor at meals. - Follow Up Care Primary Care Physician: Shayne Moncada MD [Primary Care Provider] -
--- NOTE | 2019-07-28 12:33 | NURSING ---
This RN called and updated with pt's , Kaylee over the phone.
--- NOTE | 2019-07-28 12:42 | NURSING ---
This RN called and gave report to FREIDA Aguilera in the TCU.
[2019-07-28] MEDS: LORazepam 2 MG/ML Bottle 0.5 MG PO (13:51)
--- NOTE | 2019-07-28 19:24 | NUR.TO.PHY ---
Around 19:15, pt transferred to [facility] via [facility]. Torrie
--- NOTE | 2019-07-29 16:52 | PCM.DC.SUM ---
Discharge Date and Diagnosis - Problem List Patient Problems: Active and Suspected Problems (Last Reviewed 07/26/19 @ 06:[address] Delgado Barraza MD) Debility (Acute) Right hemiparesis (Acute) Dysphagia (Acute) Date of Admission: 07/25/19 Date of Discharge: 07/28/19 - Primary Discharge Diagnosis Acute Problems: Active Problems (Last Reviewed 07/26/19 @ 06:[address] Delgado Barraza MD) #1 acute left brainstem ischemic stroke #2 debility secondary to acute CVA #3 chronic obstructive pulmonary disease #4 hypertension #5 chronic left vocal cord paralysis #6 hypothyroidism #7 hyperlipidemia #8 Chronic anxiety #9 dysarthria-probably secondary to acute CVA on a backdrop of left vocal cord paralysis which is chronic #10 right arm paresis - Secondary Discharge Diagnosis Chronic Problems: Chronic Problems (Last Reviewed 07/26/19 @ 06:[address] Delgado Barraza MD) Anxiety (Chronic) Chronic obstructive pulmonary disease (Chronic) Paralysis of left vocal cord (Chronic) Hypokalemia (Chronic) Coronary artery disease (Chronic) GERD (gastroesophageal reflux disease) (Chronic) Hypothyroidism (Chronic) Depression (Chronic) Prostate CA (Chronic) Central sleep apnea (Chronic) Stage 2 moderate COPD by GOLD classification (Chronic) HTN (hypertension) (Chronic) Hoarseness (Chronic) left vocal cord paralysis (Chronic) Hospital Course and Treatment Operations: None Procedures: 2-D Echocardiogram Summary of Care Provided: The patient is a 78 year old M who was seen in the emergency room at [facility] with a chief complaint of right arm weakness and dizziness, he also had some slurring of his speech. Work-up in the emergency room included a CTA of the head and neck which showed moderately extensive atherosclerotic disease without significant narrowing, CT of the brain showed no evidence of an acute event, white matter small vessel ischemic changes were noted to be present. Patient was not felt to be a TPA candidate due to the onset of his symptoms being unclear. Patient's NIH score was 2. Patient was placed in observation status on PCU, MRI was obtained which showed evidence of a subacute infarct of the left side of the brainstem extending into the left cerebral peduncle. Patient was seen in consultation by PT and OT, he was placed on Plavix and aspirin, he was placed on a statin, and it was recommended that he go for short-term rehab services at the rehab unit due to debility. Patient was also seen by speech therapy. It was not felt that neurology was needed for patient management. On 07/28/2019 patient was seen and examined: On examination he appeared in good health and spirits. Vital signs as documented. Skin warm and dry and without overt rashes. Neck without JVD, neck was supple, trachea midline, thyroid was normal. Lungs clear bilaterally, normal air movement was noted. Heart exam notable for regular rhythm, normal sounds and absence of murmurs, rubs or gallops. Abdomen unremarkable and without evidence of organomegaly, masses, or abdominal aortic enlargement. Bowel sounds are present, abdomen is not distended. Extremities nonedematous, no cyanosis was noted, no clubbing was noted. Neuro: Cranial nerves II through XII are grossly intact, moderate weakness was noted in the right arm, sensation to light touch and pinprick intact, motor exam 5/5 throughout. There was some dysarthria present on examination Psych: Patient is alert and oriented x3, he does not appear anxious or depressed, he does not appear agitated. Patient was discharged to the rehab unit at [facility] on 07/28/2019 in stable condition. Patient Problems: Active and Suspected Problems (Last Reviewed 07/26/19 @ 06:[address] Delgado Barraza MD) Debility (Acute) Right hemiparesis (Acute) Dysphagia (Acute) - Physical Exam Vitals/I&O's: Vital Signs Temp Pulse Resp BP Pulse Ox 98.0 F 79 18 120/80 94 07/28/19 17:20 07/28/19 17:20 07/28/19 17:20 07/28/19 17:20 07/28/19 17:20 Oxygen Delivery Method Room Air Weight: 88.8 kg Body Mass Index (BMI) 27.3 Finger Stick Blood Glucose 104 Intake and Output for Last 24 Hours 07/27/19 07/28/19 07/29/19 23:59 23:59 23:59 Intake Total 360 / 360 600 / 600 Output Total 150 / 150 Balance 210 / 210 600 / 600 Home Medications: Medications to take at Discharge potassium chloride 20 mEq tablet,extended release(part/cryst) 20 meq PO DAILY 90 Days #90 tab 06/09/17 Levothyroxine [Synthroid] 50 mcg PO DAILY 07/25/19 Paroxetine [Paxil] 20 mg PO DAILY 07/25/19 Acetaminophen [Tylenol Tablet] 650 mg PO Q6H PRN PRN tab 07/28/19 Amlodipine Besylate [Norvasc] 5 mg PO DAILY 07/28/19 Aspirin [Aspirin, Baby] 81 mg PO DAILY@0800 07/28/19 Atorvastatin Calcium [Lipitor] 40 mg PO QHS 07/28/19 Clopidogrel Bisulfate [Plavix] 75 mg PO DAILY 07/28/19 Famotidine [Pepcid] 20 mg PO DAILY 07/28/19 Lorazepam [Ativan] 0.5 mg PO TID PRN PRN #7 tab 07/28/19 Spironolactone [Aldactone] 25 mg PO DAILY 07/28/19 Following Prescrptions Were Given to Patient: Lorazepam [Ativan] 0.5 mg PO TID PRN PRN #7 tab PRN Reason: Anxiety Prescription Printed Primary Care Physician: Shayne Moncada MD [Primary Care Provider] - Disposition: Inpt Rehab Unit/Facility Minutes spent on discharge:: 31 Patient Condition:: Stable Medical Necessity - Tobacco Use Smoking Status: Former smoker Meaningful Use Info Meaningful Use Diagnoses (Choose all that apply): Ischemic CVA - CVA Therapy Assessed for PT,OT and/or ST?: Yes - Ischemic Stroke Antithrombotic order at d/c?: Yes Dx of Atrial fib/flutter?: No Anticoagulant at discharge?: No Reason anticoagulant not ordered: Treatment not Indicated Statins at discharge?: Yes Primary Dx Acute Ischemic CVA?: Yes IV tPA ordered during stay?: No Reason IV t-PA not ordered: Treatment not Indicated OBSV E&M: 29247 Observation care discharge
== END 2019-07-28 11:29 | disposition skilled nursing facility (03) ==
LOC: ED 22:56 → PCU 07-26 01:50
PROVIDERS: Admitting Provider Hospitalist; Emergency Provider Emergency Medicine; PCP Family Medicine; Visit Provider Internal Medicine
DX: I63.9 Cerebral infarction, unspecified (principal); R47.1 Dysarthria and anarthria; R29.810 Facial weakness; G81.91 Hemiplegia, unspecified affecting right dominant side; R29.702 NIHSS score 2; I10 Essential (primary) hypertension; J38.01 Paralysis of vocal cords and larynx, unilateral; G47.31 Primary central sleep apnea; J44.9 Chronic obstructive pulmonary disease, unspecified; E03.9 Hypothyroidism, unspecified; Z85.46 Personal history of malignant neoplasm of prostate; Z79.899 Other long term (current) drug therapy; Z79.82 Long term (current) use of aspirin; Z92.3 Personal history of irradiation; F41.9 Anxiety disorder, unspecified; E78.5 Hyperlipidemia, unspecified; K21.9 Gastro-esophageal reflux disease without esophagitis; F32.9 Major depressive disorder, single episode, unspecified
CPT/HCPCS: 36415; 70450; 70496; 70498; 70551; 71045; 80048; 80061; 83036; 84484; 85025; 85610; 85730; 87635; 92526; 92610; 93005; 93306; 94762; 96372; 97116; 97162; 97166; 97530; 97802; 99218; 99285; C9803; G2023; Q9957; Q9967; A4216; G0378; U0003

== ENCOUNTER 2019-07-28 19:43 | Inpatient (IN) | payer MEDICARE, SELFPAY ==
[2019-07-28 07:38] VITALS: BMI 27.3
--- NOTE | 2019-07-28 19:50 | NURSING ---
Pt arrived on floor at 1920 via bed.
[2019-07-28 19:59] VITALS: BP 160/83; PULSE 88; RESP 18; TEMP 36.6; O2SAT 94
--- NOTE | 2019-07-28 20:38 | HP.PCM_ITS ---
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 07/25/2019 The patient is a 78 year old Male with below past medical history presented to [facility] Emergency Department with stroke symptoms. 07/25/2019 CT brain stable central, cortical involutional changes, stable old bilateral deep white matter small vessel ischemic changes, stable punctate old ischemic changes within basal ganglia. Stable extensive vascular calcification. 07/25/2019 Chest X-ray negative. 07/25/2019 EKG sinus bradycardia, septal infarct, age undetermined. 07/25/2019 CTA head/neck showed moderate extensive atherosclerotic disease without significant narrowing Mild narrowing in one segment right middle cerebral artery. Mild stenosis P1 segment of right posterior cerebral artery. Calcific plaques of carotid bulbs without stenosis. [place] dizzy, right arm weakness, right facial droop. Right sided weakness, slurred speech, Blood pressure elevated, history of stroke. [facility] recommended No tPA. WBC 12.0, Glucose 115, BUN 24, INR 1.0. Troponin negative. 07/25/2019 Admit to Hospital. PT/OT/ST, bedside swallow for stroke. Aspirin, high intensity statin for stroke. Permissive hypertension, MRI brain, Echo for stroke. 07/26/2019 MRI brain showed left sided stroke. 07/26/2019 Echo EF 60%. No evidence for diastolic dysfunction. 07/26/2019 Aspirin, Plavix, PT/OT recommended Long Term Facility. 07/27/2019 Dysarthria, chronic left vocal cord paralysis. 07/28/2019 Admit to TCU with debility, here for rehabilitation, strengthening, prior to discharge home with . Past Medical History Past Medical History (Chronic Problems): Chronic Problems (Last Reviewed 07/26/19 @ 06:[address] Delgado Barraza MD) Anxiety (Chronic) Chronic obstructive pulmonary disease (Chronic) Paralysis of left vocal cord (Chronic) Hypokalemia (Chronic) Coronary artery disease (Chronic) GERD (gastroesophageal reflux disease) (Chronic) Hypothyroidism (Chronic) Depression (Chronic) Prostate CA (Chronic) Central sleep apnea (Chronic) Stage 2 moderate COPD by GOLD classification (Chronic) HTN (hypertension) (Chronic) Hoarseness (Chronic) left vocal cord paralysis (Chronic) Medical History: Medical History (Last Reviewed 07/26/19 @ 06:[address] Delgado Barraza MD) Prostate CA (Chronic) C61 Stroke (Acute) I63.9 left brainstem FREEDMAN (dyspnea on exertion) (Inactive) R06.09 Central sleep apnea (Chronic) G47.31 Stage 2 moderate COPD by GOLD classification (Chronic) J44.9 HTN (hypertension) (Chronic) I10 Hoarseness (Chronic) R49.0 left vocal cord paralysis (Chronic) Allergies oxycodone [From Percodan] Allergy (Verified 07/25/19 23:06) Other Home Medications: Ambulatory Orders Medication Instructions Recorded potassium chloride 20 mEq 20 meq PO DAILY 90 Days #90 tab 06/09/17 tablet,extended release(part/cryst) Levothyroxine [Synthroid] 50 mcg PO DAILY 07/25/19 Paroxetine [Paxil] 20 mg PO DAILY 07/25/19 Acetaminophen [Tylenol Tablet] 650 mg PO Q6H PRN PRN tab 07/28/19 Amlodipine Besylate [Norvasc] 5 mg PO DAILY 07/28/19 Aspirin [Aspirin, Baby] 81 mg PO DAILY@0800 07/28/19 Atorvastatin Calcium [Lipitor] 40 mg PO QHS 07/28/19 Clopidogrel Bisulfate [Plavix] 75 mg PO DAILY 07/28/19 Famotidine [Pepcid] 20 mg PO DAILY 07/28/19 Lorazepam [Ativan] 0.5 mg PO TID PRN PRN #7 tab 07/28/19 Spironolactone [Aldactone] 25 mg PO DAILY 07/28/19 Surgical History: Surgical History (Last Reviewed 07/26/19 @ 06:[address] Delgado Barraza MD) Cataract extraction status Z98.49 History of hip replacement Z96.649 History of open heart surgery Z98.890 Surgical History: cataract, coronary bypass surgery, total hip arthroplasty Psychiatric History: Depression Lives: Spouse/ Significant Other Smoking Status: Former smoker Tobacco Use: Non-smoker Alcohol: None Drugs: None - *Family History Maternal History Items: - - He reported that his mother was healthy. His mother lived to the age of 96 and from old age. Paternal History Items: Cancer - His father had prostate cancer Review of Systems Constitutional: Denies: Chills, Fever, Weight Change HEENT: Denies: Head Aches, Sinus Congestion, Sinus Drainage Cardiovascular: Denies: Chest Pain, Palpitations Respiratory: Denies: Cough, Shortness of breath at rest, Sputum production Gastrointestinal: Denies: Abdominal Pain, Nausea, Vomiting Genitourinary: Denies: Dysuria Musculoskeletal: Denies: Joint Pain, Joint Tenderness Skin: Denies: Rash, Wounds Neurological: Denies: Numbness, Tingling, Focal weakness Psychiatric: Denies: Anxiety, Depression, Homicidal Ideations, Suicidal Ideations Hematologic/ Lymphatic: Denies: Easy Bruising, Easy Bleeding VTE Information - Inpt Only VTE Present on Admission: No VTE Mechan Device Prophylaxis: Knee High BRITTANY Hose VTE Pharm Prophylaxis ordered?: No Reason prophylaxis not ordered:: Treatment Not Indicated Patient Problems: Active and Suspected Problems (Last Reviewed 07/26/19 @ 06:[address] Delgado Barraza MD) Debility (Acute) Right hemiparesis (Acute) Dysphagia (Acute) - Physical Exam Vitals/I&O's: Vital Signs Temp Pulse Resp BP Pulse Ox 98 F 88 18 160/83 H 94 07/28/19 19:59 07/28/19 19:59 07/28/19 19:59 07/28/19 19:59 07/28/19 19:59 Oxygen Delivery Method Room Air Body Mass Index (BMI) 27.3 Finger Stick Blood Glucose 104 General: Alert, Oriented x3, Cooperative HEENT: Atraumatic, PERRLA, EOMI, Normocephalic Neck: Supple, No JVD, Negative Carotid Bruits Lungs: Clear to auscultation, Normal air movement Cardiovascular: Regular rate, No murmurs Abdomen: Bowel Sounds Present, Soft, Non Tender Extremities: No edema, Capillary Refill Less than 3 Seconds Skin: No rashes, No breakdown Musculoskeletal: No Tenderness to Palpation of Joints or Extremities Neurological: Cranial nerves II-XII grossly intact, - - Right hemiparesis. Psych/Mental Status: Normal Affect, Appropriate Current Medications Acetaminophen (Tylenol) 650 mg PO Q6H PRN PRN PRN Reason: Pain Score 1-10/Temp > 100.7 F Amlodipine Besylate (Norvasc) 5 mg PO DAILY [facility] Aspirin (Aspirin, Baby) 81 mg PO DAILY@0800 FRANNY Atorvastatin Calcium (Lipitor) 40 mg PO QHS FRANNY Clopidogrel Bisulfate (Plavix) 75 mg PO DAILY FRANNY Famotidine (Pepcid) 20 mg PO DAILY FRANNY Levothyroxine Sodium (Synthroid) 50 mcg PO DAILY FRANNY Lorazepam (Ativan) 0.5 mg PO TID PRN PRN PRN Reason: ANXIETY Paroxetine HCl (Paxil) 20 mg PO DAILY FRANNY Potassium Chloride (K-Dur) 20 meq PO DAILYCM FRANNY Senna/Docusate Sodium (Senokot-S, Nallely-Colace) 1 tablet PO BID FRANNY Spironolactone (Aldactone) 25 mg PO DAILY FRANNY Tuberculin PPD (Tubersol, Aplisol, Ppd) 5 tu ID X1 ONE Stop: 07/29/19 10:01 Tuberculin PPD (Tubersol, Aplisol, Ppd) 5 tu ID X1 ONE Stop: 08/05/19 10:01 Assessment/Plan All Active Problems (Last Reviewed 07/26/19 @ 06:[address] Delgado Barraza MD) Stroke-like symptoms (Acute) Dysarthria (Acute) Debility (Acute) Right hemiparesis (Acute) Dysphagia (Acute) Stroke (Acute) 78 year old male with below past medical history hospitalized for left sided stroke, right hemiparesis, admitted to TCU with debility, here for rehabilitation, strengthening, prior to discharge home with . * Debility - PT/OT. * Dysphagia - ST. * Pain - Tylenol 1000MG Q6H PRN pain (1-10). * Bowel - Miralax 17GM daily, Senna/colace 1 tablet BID, Dulcolax 10MG OK daily PRN. * Adult immunization - Administer Prevnar 13, Pneumovax 23, Fluzone as appropriate. * DVT prophylaxis - Hold, on dual antiplatelet therapy. * Hypertension - Amlodipine 5MG daily, Aldactone 25MG daily. * Stroke - Aspirin 81MG daily, Plavix 75MG daily thru 10/25/2019. * Hyperlipidemia - High intensity Atorvastatin 40MG QHS. * GERD - Famotidine 20MG daily. * Hypothyroidism - Levothyroxine 50MCG daily. * Anxiety - Lorazepam 0.5MG TID PRN. * Depression - Paroxetine 20MG daily. * Hypokalemia - K-Dur 20MEQ daily.
[2019-07-28] MEDS: LORazepam 0.5 MG Tablet PO (21:46)
[2019-07-28] MEDS: Atorvastatin Calcium 40 MG Tablet PO (21:46)
--- NOTE | 2019-07-28 21:50 | NURSING ---
Into pt's room to start admission process, pt sitting up on side of bed, pt was becoming agitated, wanting to go home, states he can go home and come back for therapy, talked to son on cell phone, son voices that he wants his dad to stay and become stronger before coming home, pt alert and oriented x3, able to calm him down, assisted back to bed and took meds, gave him thickened coke and ice cream per his request, pt calmed down and became pleasant, talkative and willing to spend the night and readdress going home tomorrow
[2019-07-28 22:07] VITALS: BMI 27.3
[2019-07-28 22:16] VITALS: BMI 27.0
[2019-07-29] MEDS: Menthol/Lanolin/Calamine/Znox 113 GM Tube 1 APPLIC TOPICAL ×2 (05:44→16:45)
[2019-07-29] MEDS: Nystatin Powder 15gm Bottle 1 APPLIC TOPICAL ×2 (05:45→16:45)
[2019-07-29] MEDS: Polyethylene Glycol 3350 17 GM PACKET PO (05:45)
[2019-07-29] MEDS: Clopidogrel Bisulfate 75 MG Tablet PO (05:45)
[2019-07-29] MEDS: Senna/Docusate Sodium 1 Tablet PO ×2 (05:46→16:44)
[2019-07-29] MEDS: Famotidine 20 MG Tablet PO (05:46)
[2019-07-29] MEDS: Levothyroxine 50 MCG Tablet PO (05:46)
[2019-07-29] MEDS: amLODIPine 5 MG Tablet PO (05:46)
[2019-07-29] MEDS: Spironolactone 25 MG Tablet PO (05:47)
[2019-07-29] MEDS: Paroxetine 20 MG Tablet PO (05:47)
[2019-07-29 06:06] LABS: Absolute Lymphocyte Count 1.14 X10^3/uL (0.83-4.51); Absolute Neutrophil Count 6.4 X10^3/uL (2.0-7.7); Basophil# 0.08 X10^3/uL; Basophil% 0.9 % (0-1); Eosinophil# 0.24 X10^3/uL; Eosinophils% 2.8 % (0-5); Hematocrit 45.1 % (40-54); Hemoglobin 14.6 g/dL (13.0-16.5); Lymphocyte # 1.14 X10^3/ul (4.0); Lymphocyte % 13.4 % (19-41); Mean Corp Hgb Conc 32.4 g/dL (32-36); Mean Corpuscular Volume 92.6 fL (80-94); Mean Platelet Vol. 9.6 fl (6.2-12.0); Monocyte# 0.63 X10^3/uL; Monocyte% 7.4 % (0-10); NRBC Flagged by Analyzer 0 % (0-5); Neutrophil # 6.35 X10^3/uL (2.7-7.7); Neutrophil % 74.8 % (47-70); Platelet Count 192 K/mm3 (150-450); RBC Distribution Width CV 13.7 % (11.6-14.6); RBC Distribution Width SD 46.4 fl (35.1-43.9); Red Blood Count 4.87 M/mm3 (4.6-6.2); White Blood Count 8.5 K/mm3 (4.4-11.0)
[2019-07-29 06:34] VITALS: BP 140/80; PULSE 75; RESP 16; TEMP 36.3
[2019-07-29 07:05] LABS: Anion Gap 7 (5-15); BUN 35 mg/dL (7-18); BUN/Creat Ratio 43.3 RATIO (10-20); Calcium,Total 8.7 mg/dL (8.5-10.1); Chloride 105 mmol/L (98-107); Creatinine, Serum 0.81 mg/dL (0.70-1.30); EST Glomerular Filtration Rate 98 mL/min (>60); Est Glom Filt Rate - Afr Amer 118 mL/min (>60); Estimated Creatinine Clearance 78.76 ml/min; Glucose 103 mg/dL (74-106); Potassium 3.7 mmol/L (3.5-5.1); Sodium Level 138 mmol/L (136-145)
[2019-07-29] MEDS: Aspirin 81 MG TAB.CHEW PO (08:35)
[2019-07-29] MEDS: Tuberculin,Purif.prot.deriv. 50 TU/ML Vial 5 ML ID (10:56)
[2019-07-29 11:20] LABS: Bedside Glucose 123 mg/dL (70-110)
[2019-07-29 13:18] VITALS: BP 120/60; PULSE 74; RESP 16; TEMP 36.6; O2SAT 90
--- NOTE | 2019-07-29 16:19 | NURSING ---
While providing care for resident, resident got wrist caught in bed rail. Skin tear cleansed with NS, adaptic and dry sterile dressing applied. Resident tolerated procedure well.
[2019-07-29] MEDS: Atorvastatin Calcium 40 MG Tablet PO (20:23)
[2019-07-29] MEDS: LORazepam 0.5 MG Tablet PO (20:23)
[2019-07-30 04:00] VITALS: BP 124/74; PULSE 66; RESP 18; TEMP 36.4; O2SAT 97
[2019-07-30] MEDS: Paroxetine 20 MG Tablet PO (05:48)
[2019-07-30] MEDS: amLODIPine 5 MG Tablet PO (05:48)
[2019-07-30] MEDS: Nystatin Powder 15gm Bottle 1 APPLIC TOPICAL ×2 (05:48→17:05)
[2019-07-30] MEDS: Polyethylene Glycol 3350 17 GM PACKET PO (05:48)
[2019-07-30] MEDS: Levothyroxine 50 MCG Tablet PO (05:48)
[2019-07-30] MEDS: Famotidine 20 MG Tablet PO (05:48)
[2019-07-30] MEDS: Clopidogrel Bisulfate 75 MG Tablet PO (05:48)
[2019-07-30] MEDS: Spironolactone 25 MG Tablet PO (05:48)
[2019-07-30] MEDS: Senna/Docusate Sodium 1 Tablet PO ×2 (05:48→17:07)
[2019-07-30] MEDS: Menthol/Lanolin/Calamine/Znox 113 GM Tube 1 APPLIC TOPICAL ×2 (05:49→17:06)
[2019-07-30] MEDS: Aspirin 81 MG TAB.CHEW PO (08:14)
[2019-07-30] MEDS: Magnesium Citrate 300 ML PO (11:04)
--- NOTE | 2019-07-30 14:31 | PCM.PN.RX ---
<VioletaSrini rousei - Last Filed: 07/30/19 14:31> Progress Note - Pharmacy Subjective: TCU Admission Objective: Allergies oxycodone [From Percodan] Allergy (Verified 07/25/19 23:06) Other Current Medications Generic Name Dose Route Start Last Admin Trade Name Freq PRN Reason Stop Dose Admin Acetaminophen 1,000 mg 07/28/19 20:54 Tylenol PO Q6H PRN PRN Pain Score 1-10/10 Amlodipine Besylate 5 mg 07/29/19 06:00 07/30/19 05:48 Norvasc PO 5 mg DAILY FRANNY Administration Aspirin 81 mg 07/29/19 08:00 07/30/19 08:14 Aspirin, Baby PO 81 mg DAILY@0800 FRANNY Administration Atorvastatin Calcium 40 mg 07/28/19 22:00 07/29/19 20:23 Lipitor PO 40 mg QHS FRANNY Administration Bisacodyl 10 mg 07/28/19 20:53 Dulcolax RECTAL DAILY PRN Constipation Calamine/Phenol 1 applic 07/29/19 06:00 07/30/19 05:49 Calmoseptine Ointment TOPICAL 1 applicatio BID FRANNY Administration Protocol Clopidogrel Bisulfate 75 mg 07/29/19 06:00 07/30/19 05:48 Plavix PO 75 mg DAILY FRANNY Administration Famotidine 20 mg 07/29/19 06:00 07/30/19 05:48 Pepcid PO 20 mg DAILY FRANNY Administration Levothyroxine Sodium 50 mcg 07/29/19 06:00 07/30/19 05:48 Synthroid PO 50 mcg DAILY FRANNY Administration Lorazepam 0.5 mg 07/28/19 20:30 07/29/19 20:23 Ativan PO 0.5 mg TID PRN PRN Administration ANXIETY Nystatin 1 applic 07/29/19 06:00 07/30/19 05:48 Mycostatin Powder TOPICAL 1 applicatio BID FRANNY Administration Protocol Paroxetine HCl 20 mg 07/29/19 06:00 07/30/19 05:48 Paxil PO 20 mg DAILY FRANNY Administration Polyethylene Glycol 17 gm 07/29/19 06:00 07/30/19 05:48 Miralax PO 17 gm DAILY FRANNY Administration Potassium Chloride 20 meq 07/29/19 08:00 07/30/19 08:14 K-Dur PO 20 meq DAILYCM FRANNY Administration Senna/Docusate Sodium 1 tablet 07/29/19 06:00 07/30/19 05:48 Senokot-S, Nallely-Colace PO 1 tablet BID FRANNY Administration Sodium Chloride 10 - 40 ml 07/28/19 22:06 IV UD PRN SALINE FLUSH Spironolactone 25 mg 07/29/19 06:00 07/30/19 05:48 Aldactone PO 25 mg DAILY FRANNY Administration Tuberculin PPD 5 tu 08/05/19 10:00 Tubersol, Aplisol, Ppd ID 08/05/19 10:01 X1 ONE Problem List (Last Reviewed 07/26/19 @ 06:[address] Delgado Barraza MD) Debility (Acute) Right hemiparesis (Acute) Chronic obstructive pulmonary disease (Chronic) Paralysis of left vocal cord (Chronic) Hypokalemia (Chronic) Coronary artery disease (Chronic) GERD (gastroesophageal reflux disease) (Chronic) Hypothyroidism (Chronic) Depression (Chronic) Dysphagia (Acute) Vital Signs Temp Pulse Resp BP Pulse Ox 97.5 F L 66 18 124/74 H 97 07/30/19 04:00 07/30/19 04:00 07/30/19 04:00 07/30/19 04:00 07/30/19 04:00 Oxygen Delivery Method Room Air Weight: 88.9 kg Body Mass Index (BMI) 27.3 Finger Stick Blood Glucose 104 Sodium 138 mmol/L (136-145) 07/29/19 05:13 Potassium 3.7 mmol/L (3.5-5.1) 07/29/19 05:13 Chloride 105 mmol/L (98-107) 07/29/19 05:13 Carbon Dioxide 26.0 mmol/L (21.0-32.0) 07/29/19 05:13 Anion Gap 7 (5-15) 07/29/19 05:13 BUN 35 mg/dL (7-18) H 07/29/19 05:13 Creatinine 0.81 mg/dL (0.70-1.30) 07/29/19 05:13 Est GFR (MDRD) Af Amer 118 mL/min (>60) 07/29/19 05:13 Est GFR (MDRD) Non-Af 98 mL/min (>60) 07/29/19 05:13 BUN/Creatinine Ratio 43.3 RATIO (10-20) H 07/29/19 05:13 Glucose 103 mg/dL (74-106) 07/29/19 05:13 Assessment/Plan: 1. Pain: acetaminophen 1000mg PO Q6H PRN pain 1-11/16. Please continue to monitor for pain and PRN usage. 2. Hypertension: amlodipine 5mg PO daily and spironolactone 25mg PO daily. Please continue to monitor BP (last 124/74), edema, and potassium (last 3.7mmol/L). 3. Stroke: aspirin 81mg PO DAILYCM and clopidogrel 75mg PO daily. Please continue to monitor for S/S of bleeding, hemoglobin, and S/S of stroke. 4. Hyperlipidemia: atorvastatin 40mg PO QHS. Please continue to monitor annual lipid panel and for muscle pain. 5. GERD: famotidine 20mg PO daily. Please continue to monitor renal function and S/S of GERD. 6. Hypothyroidism: levothyroxine 50mcg PO daily. Please consider ordering a TSH now and then annually as clinically appropriate. Last TSH is from 06/2018. Please continue to monitor for S/S of hypo/hyperthyroidism. 7. Hypokalemia: potassium chloride 20mEq PO DAILYCM. Please continue to monitor potassium levels (last 3.7mmol/L). Psychotropic Medications: *1. Depression: paroxetine 20mg PO daily. Please consider GDR by 01/2020 if clinically appropriate. Thanks. Please continue to monitor renal function. *2. Anxiety: lorazepam 0.5mg PO TID PRN anxiety. Please consider GDR by 01/2020 if clinically appropriate. Thanks. Unnecessary Medications: None Bowel Regimen: Miralax 17gm PO daily, senna/docusate 1T PO BID, and bisacodyl 10mg AL daily PRN constipation. Please continue to monitor for constipation and PRN usage. Date of Note:: 07/30/19 - Provider Comments Provider responsibility: Provider responsible to enter orders to implement recommendations <Ariel Duenas Chi - Last Filed: 07/30/19 17:07> Progress Note - Pharmacy Subjective: [] Objective: Allergies oxycodone [From Percodan] Allergy (Verified 07/25/19 23:06) Other Current Medications Generic Name Dose Route Start Last Admin Trade Name Freq PRN Reason Stop Dose Admin Acetaminophen 1,000 mg 07/28/19 20:54 Tylenol PO Q6H PRN PRN Pain Score 1-10/10 Amlodipine Besylate 5 mg 07/29/19 06:00 07/30/19 05:48 Norvasc PO 5 mg DAILY FRANNY Administration Aspirin 81 mg 07/29/19 08:00 07/30/19 08:14 Aspirin, Baby PO 81 mg DAILY@0800 FRANNY Administration Atorvastatin Calcium 40 mg 07/28/19 22:00 07/29/19 20:23 Lipitor PO 40 mg QHS FRANNY Administration Bisacodyl 10 mg 07/28/19 20:53 Dulcolax RECTAL DAILY PRN Constipation Calamine/Phenol 1 applic 07/29/19 06:00 07/30/19 05:49 Calmoseptine Ointment TOPICAL 1 applicatio BID FRANNY Administration Protocol Clopidogrel Bisulfate 75 mg 07/29/19 06:00 07/30/19 05:48 Plavix PO 75 mg DAILY FRANNY Administration Famotidine 20 mg 07/29/19 06:00 07/30/19 05:48 Pepcid PO 20 mg DAILY FRANNY Administration Levothyroxine Sodium 50 mcg 07/29/19 06:00 07/30/19 05:48 Synthroid PO 50 mcg DAILY FRANNY Administration Lorazepam 0.5 mg 07/28/19 20:30 07/29/19 20:23 Ativan PO 0.5 mg TID PRN PRN Administration ANXIETY Nystatin 1 applic 07/29/19 06:00 07/30/19 05:48 Mycostatin Powder TOPICAL 1 applicatio BID FRANNY Administration Protocol Paroxetine HCl 20 mg 07/29/19 06:00 07/30/19 05:48 Paxil PO 20 mg DAILY FRANNY Administration Polyethylene Glycol 17 gm 07/29/19 06:00 07/30/19 05:48 Miralax PO 17 gm DAILY FRANNY Administration Potassium Chloride 20 meq 07/29/19 08:00 07/30/19 08:14 K-Dur PO 20 meq DAILYCM FRANNY Administration Senna/Docusate Sodium 1 tablet 07/29/19 06:00 07/30/19 05:48 Senokot-S, Nallely-Colace PO 1 tablet BID FRANNY Administration Sodium Chloride 10 - 40 ml 07/28/19 22:06 IV UD PRN SALINE FLUSH Spironolactone 25 mg 07/29/19 06:00 07/30/19 05:48 Aldactone PO 25 mg DAILY FRANNY Administration Tuberculin PPD 5 tu 08/05/19 10:00 Tubersol, Aplisol, Ppd ID 08/05/19 10:01 X1 ONE Problem List (Last Reviewed 07/26/19 @ 06:[address] Delgado Barraza MD) Debility (Acute) Right hemiparesis (Acute) Chronic obstructive pulmonary disease (Chronic) Paralysis of left vocal cord (Chronic) Hypokalemia (Chronic) Coronary artery disease (Chronic) GERD (gastroesophageal reflux disease) (Chronic) Hypothyroidism (Chronic) Depression (Chronic) Dysphagia (Acute) Vital Signs Temp Pulse Resp BP Pulse Ox 97.4 F L 94 18 130/79 H 93 07/30/19 14:47 07/30/19 14:47 07/30/19 14:47 07/30/19 14:47 07/30/19 14:47 Oxygen Delivery Method Room Air Weight: 88.9 kg Body Mass Index (BMI) 27.3 Finger Stick Blood Glucose 104 Sodium 138 mmol/L (136-145) 07/29/19 05:13 Potassium 3.7 mmol/L (3.5-5.1) 07/29/19 05:13 Chloride 105 mmol/L (98-107) 07/29/19 05:13 Carbon Dioxide 26.0 mmol/L (21.0-32.0) 07/29/19 05:13 Anion Gap 7 (5-15) 07/29/19 05:13 BUN 35 mg/dL (7-18) H 07/29/19 05:13 Creatinine 0.81 mg/dL (0.70-1.30) 07/29/19 05:13 Est GFR (MDRD) Af Amer 118 mL/min (>60) 07/29/19 05:13 Est GFR (MDRD) Non-Af 98 mL/min (>60) 07/29/19 05:13 BUN/Creatinine Ratio 43.3 RATIO (10-20) H 07/29/19 05:13 Glucose 103 mg/dL (74-106) 07/29/19 05:13 Assessment/Plan: Psychotropic Medications: Unnecessary Medications: Bowel Regimen: - Provider Comments Provider responsibility: Provider responsible to enter orders to implement recommendations Provider Comments to Recommendations by Pharmacy: Agree
--- NOTE | 2019-07-30 14:36 | CHAPLAIN ---
Type of Pastoral Visit _x__ Initial Visit ___ Follow-up Visit ___ On-call Visit ___ General Patient Visit ___ Spiritual Assessment ___ Family Conference ___ Bereavement ___ Rapid Response ___ Code Blue ___ Other (describe below) Pastoral Care Referral From _x__ Patient ___ Family ___ Nurse ___ Physician ___ Sewage Reticulation Drafting Officer ___ Supervisor Drilling And Shooting ___ Other (describe below) Sacrament/Intervention _x__ Active listening ___ Anointing ___ Congregation ___ Bereavement ___ Communion ___ Vicky exploration ___ ___ Life review _x__ Prayer ___ Reconciliation ___ Sacrament of Sick _x__ Supportive presence ___ Wedding ___ Other (describe below) Pastoral Comments patient is welcoming but hard of hearing; assisted pt with his remote control and later with his phone when it rang; 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
[2019-07-30 14:47] VITALS: BP 130/79; PULSE 94; RESP 18; TEMP 36.3; O2SAT 93
--- NOTE | 2019-07-30 14:48 | NURSING ---
Pt drinks half of magnesium citrate bottle and has large soft BM. States he does not want to drink the rest of the bottle. States it is not that unusual for him to go a few days without having a BM.
[2019-07-30] MEDS: Atorvastatin Calcium 40 MG Tablet PO (21:01)
[2019-07-30 21:46] LABS: Bedside Glucose 105 mg/dL (70-110)
[2019-07-31 05:41] VITALS: BP 128/83; PULSE 91; RESP 18; TEMP 36.7; O2SAT 93
[2019-07-31] MEDS: Levothyroxine 50 MCG Tablet PO (05:46)
[2019-07-31] MEDS: Senna/Docusate Sodium 1 Tablet PO ×2 (05:46→16:01)
[2019-07-31] MEDS: Polyethylene Glycol 3350 17 GM PACKET PO (05:47)
[2019-07-31] MEDS: Paroxetine 20 MG Tablet PO (05:47)
[2019-07-31] MEDS: amLODIPine 5 MG Tablet PO (05:47)
[2019-07-31] MEDS: Clopidogrel Bisulfate 75 MG Tablet PO (05:47)
[2019-07-31] MEDS: Famotidine 20 MG Tablet PO (05:47)
[2019-07-31] MEDS: Spironolactone 25 MG Tablet PO (05:47)
[2019-07-31] MEDS: Menthol/Lanolin/Calamine/Znox 113 GM Tube 1 APPLIC TOPICAL ×2 (05:53→16:01)
[2019-07-31] MEDS: Nystatin Powder 15gm Bottle 1 APPLIC TOPICAL ×2 (05:53→16:01)
[2019-07-31] MEDS: Aspirin 81 MG TAB.CHEW PO (08:41)
--- NOTE | 2019-07-31 10:45 | CASEMGMT ---
Social Work Met with pt for initial assessment 07/29. Discussed code status with pt. Pt confirmed full code. MOLST form completed and placed in chart. Pt expressed his has cancer and his adult son whom lives with him has D.D. 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 Pt also stated he has financial issues, a lot of debt due to 's medical bills. Did state he can pay his bills monthly and is not behind on any monthly bills. Provided emotional support, active listening and validated feelings. Pt very open about feelings. Inquired about Medicaid. Pt stated he had Medicaid but there is no numbers listed. Discussed [facility] insurance coverage with copays. Verifying that upon review on this date. Pt's goal is to DC on Day 11 so he does not have to pay privately for copays. Contacted [employer] to inquire about Medicaid - pt does not have Medicaid. Will provide Medicaid application to pt and assist with process, if needed. Received hand-off report that pt has two other sons - Freddie whom lives in town, and Gigi whom lives out of town. Gigi is planning to come into town to assist family with plans. No other phone numbers listed beside . Pt reports assisting with student support advisor, finances and medications. Will continue to follow and assist.
[2019-07-31 14:39] VITALS: BP 134/65; PULSE 101; RESP 18; TEMP 36.8; O2SAT 93
--- NOTE | 2019-07-31 17:15 | NURSING ---
This nurse spoke to , Kaylee, update given
[2019-07-31] MEDS: Atorvastatin Calcium 40 MG Tablet PO (22:05)
[2019-07-31] MEDS: LORazepam 0.5 MG Tablet PO (22:29)
[2019-08-01 05:00] VITALS: BP 138/76; PULSE 68; RESP 16; TEMP 36.6; O2SAT 92
[2019-08-01] MEDS: Polyethylene Glycol 3350 17 GM PACKET PO (05:35)
[2019-08-01] MEDS: Menthol/Lanolin/Calamine/Znox 113 GM Tube 1 APPLIC TOPICAL ×2 (05:36→17:56)
[2019-08-01] MEDS: Nystatin Powder 15gm Bottle 1 APPLIC TOPICAL ×2 (05:36→17:56)
[2019-08-01] MEDS: Senna/Docusate Sodium 1 Tablet PO (05:37)
[2019-08-01] MEDS: Paroxetine 20 MG Tablet PO (05:37)
[2019-08-01] MEDS: Clopidogrel Bisulfate 75 MG Tablet PO (05:37)
[2019-08-01] MEDS: Famotidine 20 MG Tablet PO (05:37)
[2019-08-01] MEDS: Levothyroxine 50 MCG Tablet PO (05:37)
[2019-08-01] MEDS: amLODIPine 5 MG Tablet PO (05:37)
[2019-08-01] MEDS: Spironolactone 25 MG Tablet PO (05:37)
[2019-08-01] MEDS: Aspirin 81 MG TAB.CHEW PO (08:28)
[2019-08-01 15:33] VITALS: PULSE 90; RESP 18; O2SAT 94
[2019-08-01 15:42] VITALS: BP 128/72; PULSE 90; RESP 18; TEMP 36.7; O2SAT 94
[2019-08-01] MEDS: Atorvastatin Calcium 40 MG Tablet PO (21:08)
[2019-08-02 05:10] VITALS: BP 120/77; PULSE 88; RESP 18; TEMP 36.9; O2SAT 94
[2019-08-02] MEDS: Menthol/Lanolin/Calamine/Znox 113 GM Tube 1 APPLIC TOPICAL ×2 (05:12→17:47)
[2019-08-02] MEDS: Polyethylene Glycol 3350 17 GM PACKET PO (05:12)
[2019-08-02] MEDS: Clopidogrel Bisulfate 75 MG Tablet PO (05:13)
[2019-08-02] MEDS: Spironolactone 25 MG Tablet PO (05:13)
[2019-08-02] MEDS: Paroxetine 20 MG Tablet PO (05:13)
[2019-08-02] MEDS: Nystatin Powder 15gm Bottle 1 APPLIC TOPICAL ×2 (05:13→17:47)
[2019-08-02] MEDS: Famotidine 20 MG Tablet PO (05:14)
[2019-08-02] MEDS: Senna/Docusate Sodium 1 Tablet PO (05:14)
[2019-08-02] MEDS: Levothyroxine 50 MCG Tablet PO (05:14)
[2019-08-02] MEDS: amLODIPine 5 MG Tablet PO (05:14)
[2019-08-02] MEDS: Aspirin 81 MG TAB.CHEW PO (08:50)
--- NOTE | 2019-08-02 13:52 | MDS.RN ---
Pain interview for TO 08/04/19 completed.
[2019-08-02 14:44] VITALS: BP 131/67; PULSE 86; RESP 16; TEMP 36.7; O2SAT 93
--- NOTE | 2019-08-02 15:18 | NURSING ---
Nematology Teacher Note: Video call with resident to , 2 sons and grandchildren. Res engaged and conversational. Family to bring guitar in for resident to work on right hand functionality.
--- NOTE | 2019-08-02 16:42 | CASEMGMT ---
Social Work IDT met with patient and family via conference call for care plan meeting. Discussed patient's progress in therapy. Pt is min assti for bed mobility and sit to strandfs, mod for transfers, mod x2 to ambulate 15 ft with FWW as right leg sam. Pt is min for grooming, max for bathing, min for UE dressing, max for LE dressing, and working fine gross motor movements in RUE. Pt has right sided neglect. Pt is on a [facility] soft, nectar thick diet, and tolerating well. ST working on voice strategies, and cognition. Pt is out of room isolation 08/10. Explained [employer] NRD 08/05 and confirmed pt does have copays after day 10. Explained pt does not have ADELITA - family agreeable to apply. Family stated they can pay privately for copays and once ADELITA is approved, can transfer to SNF. Emailed ADELITA mai and SNF list. Will continue to follow. Mable Santana, LUCY BUFFET WAITER/WAITRESS
[2019-08-02] MEDS: Atorvastatin Calcium 40 MG Tablet PO (21:58)
[2019-08-03 06:21] VITALS: BP 109/58; PULSE 75; RESP 18; TEMP 36.8; O2SAT 96
[2019-08-03] MEDS: Menthol/Lanolin/Calamine/Znox 113 GM Tube 1 APPLIC TOPICAL ×2 (06:23→17:25)
[2019-08-03] MEDS: Polyethylene Glycol 3350 17 GM PACKET PO (06:23)
[2019-08-03] MEDS: Spironolactone 25 MG Tablet PO (06:23)
[2019-08-03] MEDS: amLODIPine 5 MG Tablet PO (06:24)
[2019-08-03] MEDS: Paroxetine 20 MG Tablet PO (06:24)
[2019-08-03] MEDS: Nystatin Powder 15gm Bottle 1 APPLIC TOPICAL ×2 (06:24→17:25)
[2019-08-03] MEDS: Clopidogrel Bisulfate 75 MG Tablet PO (06:24)
[2019-08-03] MEDS: Senna/Docusate Sodium 1 Tablet PO ×2 (06:24→17:24)
[2019-08-03] MEDS: Famotidine 20 MG Tablet PO (06:25)
[2019-08-03] MEDS: Levothyroxine 50 MCG Tablet PO (06:25)
[2019-08-03] MEDS: Aspirin 81 MG TAB.CHEW PO (08:25)
--- NOTE | 2019-08-03 10:54 | CASEMGMT ---
Social Work BIMS and PHQ-9 completed for MDS assessment. Mable Santana, BACKSIDE GRINDER OIL LEASE OPERATOR
[2019-08-03 11:15] VITALS: PULSE 67; RESP 18; O2SAT 93
[2019-08-03 11:25] VITALS: BP 138/82; PULSE 67; RESP 18; TEMP 36.9; O2SAT 93
[2019-08-03] MEDS: Atorvastatin Calcium 40 MG Tablet PO (19:56)
[2019-08-03] MEDS: LORazepam 0.5 MG Tablet PO (19:56)
[2019-08-04 04:00] VITALS: BP 116/72; PULSE 90; RESP 16; TEMP 36.4; O2SAT 95
[2019-08-04] MEDS: Levothyroxine 50 MCG Tablet PO (05:23)
[2019-08-04] MEDS: Famotidine 20 MG Tablet PO (05:23)
[2019-08-04] MEDS: Spironolactone 25 MG Tablet PO (05:23)
[2019-08-04] MEDS: Clopidogrel Bisulfate 75 MG Tablet PO (05:23)
[2019-08-04] MEDS: Polyethylene Glycol 3350 17 GM PACKET PO (05:23)
[2019-08-04] MEDS: amLODIPine 5 MG Tablet PO (05:23)
[2019-08-04] MEDS: Senna/Docusate Sodium 1 Tablet PO ×2 (05:23→16:42)
[2019-08-04] MEDS: Paroxetine 20 MG Tablet PO (05:23)
[2019-08-04] MEDS: Menthol/Lanolin/Calamine/Znox 113 GM Tube 1 APPLIC TOPICAL ×2 (05:25→16:42)
[2019-08-04] MEDS: Nystatin Powder 15gm Bottle 1 APPLIC TOPICAL ×2 (05:26→16:42)
[2019-08-04] MEDS: Aspirin 81 MG TAB.CHEW PO (09:22)
[2019-08-04 16:27] VITALS: BP 134/70; PULSE 87; RESP 16; TEMP 36.9; O2SAT 91
[2019-08-04] MEDS: Atorvastatin Calcium 40 MG Tablet PO (20:13)
[2019-08-04] MEDS: LORazepam 0.5 MG Tablet PO (21:59)
[2019-08-05] MEDS: Levothyroxine 50 MCG Tablet PO (06:02)
[2019-08-05] MEDS: Famotidine 20 MG Tablet PO (06:03)
[2019-08-05] MEDS: Clopidogrel Bisulfate 75 MG Tablet PO (06:03)
[2019-08-05] MEDS: Menthol/Lanolin/Calamine/Znox 113 GM Tube 1 APPLIC TOPICAL ×2 (06:03→16:19)
[2019-08-05] MEDS: Spironolactone 25 MG Tablet PO (06:03)
[2019-08-05] MEDS: Senna/Docusate Sodium 1 Tablet PO ×2 (06:03→16:20)
[2019-08-05] MEDS: Polyethylene Glycol 3350 17 GM PACKET PO (06:03)
[2019-08-05] MEDS: amLODIPine 5 MG Tablet PO (06:03)
[2019-08-05] MEDS: Paroxetine 20 MG Tablet PO (06:03)
[2019-08-05] MEDS: Nystatin Powder 15gm Bottle 1 APPLIC TOPICAL ×2 (06:04→16:20)
[2019-08-05 06:10] VITALS: BP 155/85; PULSE 70; RESP 18; TEMP 36.3; O2SAT 92
[2019-08-05 06:47] LABS: Absolute Lymphocyte Count 1.18 X10^3/uL (0.83-4.51); Absolute Neutrophil Count 6.2 X10^3/uL (2.0-7.7); Basophil# 0.05 X10^3/uL; Basophil% 0.6 % (0-1); Eosinophils% 3.6 % (0-5); Hematocrit 43.4 % (40-54); Hemoglobin 13.9 g/dL (13.0-16.5); Lymphocyte # 1.18 X10^3/ul (4.0); Lymphocyte % 14.1 % (19-41); Mean Corpuscular Hgb 29.8 pg (27.0-32.0); Mean Corpuscular Volume 93.1 fL (80-94); Mean Platelet Vol. 9.5 fl (6.2-12.0); Monocyte% 7.2 % (0-10); NRBC Flagged by Analyzer 0 % (0-5); Neutrophil # 6.22 X10^3/uL (2.7-7.7); Platelet Count 197 K/mm3 (150-450); RBC Distribution Width CV 14.1 % (11.6-14.6); Red Blood Count 4.66 M/mm3 (4.6-6.2); White Blood Count 8.4 K/mm3 (4.4-11.0)
[2019-08-05 07:07] LABS: Anion Gap 2 (5-15); BUN 34 mg/dL (7-18); BUN/Creat Ratio 44.9 RATIO (10-20); Calcium,Total 8.8 mg/dL (8.5-10.1); Chloride 108 mmol/L (98-107); Creatinine, Serum 0.76 mg/dL (0.70-1.30); EST Glomerular Filtration Rate 105 mL/min (>60); Est Glom Filt Rate - Afr Amer 128 mL/min (>60); Glucose 102 mg/dL (74-106); Potassium 3.9 mmol/L (3.5-5.1); Sodium Level 142 mmol/L (136-145)
[2019-08-05] MEDS: Aspirin 81 MG TAB.CHEW PO (09:00)
[2019-08-05] MEDS: Tuberculin,Purif.prot.deriv. 50 TU/ML Vial 5 ML ID (10:32)
[2019-08-05 14:45] VITALS: BP 137/96; PULSE 85; RESP 18; TEMP 36.9; O2SAT 91
[2019-08-05] MEDS: Atorvastatin Calcium 40 MG Tablet PO (20:22)
[2019-08-05] MEDS: LORazepam 0.5 MG Tablet PO (20:24)
[2019-08-06] MEDS: Menthol/Lanolin/Calamine/Znox 113 GM Tube 1 APPLIC TOPICAL ×2 (06:58→17:26)
[2019-08-06] MEDS: Senna/Docusate Sodium 1 Tablet PO ×2 (06:58→17:22)
[2019-08-06] MEDS: Famotidine 20 MG Tablet PO (06:58)
[2019-08-06] MEDS: Clopidogrel Bisulfate 75 MG Tablet PO (06:58)
[2019-08-06] MEDS: Levothyroxine 50 MCG Tablet PO (06:58)
[2019-08-06] MEDS: amLODIPine 5 MG Tablet PO (06:58)
[2019-08-06] MEDS: Paroxetine 20 MG Tablet PO (06:58)
[2019-08-06] MEDS: Spironolactone 25 MG Tablet PO (06:58)
[2019-08-06] MEDS: Polyethylene Glycol 3350 17 GM PACKET PO (06:58)
[2019-08-06 06:59] VITALS: BP 142/82; PULSE 72; RESP 18; TEMP 36.2; O2SAT 96
[2019-08-06] MEDS: Nystatin Powder 15gm Bottle 1 APPLIC TOPICAL ×2 (06:59→17:26)
[2019-08-06] MEDS: Aspirin 81 MG TAB.CHEW PO (08:17)
[2019-08-06 14:25] VITALS: BP 143/74; PULSE 70; RESP 14; TEMP 36.4; O2SAT 94
--- NOTE | 2019-08-06 18:43 | NURSING ---
Attempted to contact family to provide update, no answer.
[2019-08-06] MEDS: LORazepam 0.5 MG Tablet PO (21:12)
[2019-08-06] MEDS: Atorvastatin Calcium 40 MG Tablet PO (21:12)
[2019-08-07 05:50] VITALS: BP 112/68; PULSE 73; RESP 16; TEMP 36.9; O2SAT 92
[2019-08-07] MEDS: Polyethylene Glycol 3350 17 GM PACKET PO (05:51)
[2019-08-07] MEDS: Spironolactone 25 MG Tablet PO (05:52)
[2019-08-07] MEDS: Paroxetine 20 MG Tablet PO (05:53)
[2019-08-07] MEDS: Famotidine 20 MG Tablet PO (05:53)
[2019-08-07] MEDS: Senna/Docusate Sodium 1 Tablet PO (05:53)
[2019-08-07] MEDS: amLODIPine 5 MG Tablet PO (05:53)
[2019-08-07] MEDS: Clopidogrel Bisulfate 75 MG Tablet PO (05:53)
[2019-08-07] MEDS: Levothyroxine 50 MCG Tablet PO (05:53)
[2019-08-07] MEDS: Menthol/Lanolin/Calamine/Znox 113 GM Tube 1 APPLIC TOPICAL ×2 (05:56→15:49)
[2019-08-07] MEDS: Nystatin Powder 15gm Bottle 1 APPLIC TOPICAL ×2 (05:56→15:50)
[2019-08-07] MEDS: Aspirin 81 MG TAB.CHEW PO (09:01)
[2019-08-07 14:36] VITALS: BP 128/80; PULSE 91; RESP 18; TEMP 36.4; O2SAT 95
[2019-08-07] MEDS: Atorvastatin Calcium 40 MG Tablet PO (21:52)
[2019-08-07] MEDS: LORazepam 0.5 MG Tablet PO (21:52)
[2019-08-08 05:02] VITALS: BP 128/56; PULSE 69; RESP 16; TEMP 36.9; O2SAT 91
[2019-08-08] MEDS: Polyethylene Glycol 3350 17 GM PACKET PO (05:03)
[2019-08-08] MEDS: Paroxetine 20 MG Tablet PO (05:04)
[2019-08-08] MEDS: Spironolactone 25 MG Tablet PO (05:05)
[2019-08-08] MEDS: Senna/Docusate Sodium 1 Tablet PO (05:05)
[2019-08-08] MEDS: Famotidine 20 MG Tablet PO (05:05)
[2019-08-08] MEDS: Levothyroxine 50 MCG Tablet PO (05:05)
[2019-08-08] MEDS: Clopidogrel Bisulfate 75 MG Tablet PO (05:05)
[2019-08-08] MEDS: amLODIPine 5 MG Tablet PO (05:05)
[2019-08-08] MEDS: Menthol/Lanolin/Calamine/Znox 113 GM Tube 1 APPLIC TOPICAL ×2 (05:08→15:51)
[2019-08-08] MEDS: Nystatin Powder 15gm Bottle 1 APPLIC TOPICAL ×2 (05:09→15:51)
[2019-08-08] MEDS: Aspirin 81 MG TAB.CHEW PO (08:25)
--- NOTE | 2019-08-08 11:44 | MDS.RN ---
Information for the mds was obtained from review of the clinical record, interview of resident, staff, and direct observation of resident's care.
[2019-08-08 14:28] VITALS: BP 140/68; PULSE 51; RESP 16; TEMP 36.8; O2SAT 95
--- NOTE | 2019-08-08 15:36 | CASEMGMT ---
Social Work SW met with pt to discuss discharge plan. SW previously spoke with pt regarding SNF, however, today pt stating he is not planning on going to a SNF but will be going home from TCU at time of discharge. SW attempted to talk to pt about insurance coverage however, pt did not remember previous conversations and was not interested in this discussion. With pt permission phone call placed to pt Kaylee. Kaylee stating that she does not plan for pt to go to SNF or to complete Medicaid application but instead plans for pt to come home as soon as possible. RACHELE reviewed therapy notes with Kaylee and explained pt care needs. Kaylee feels that she and her son can meet needs at home. Kaylee also denies that she nor son need assistance from pt as was previously stated. SW discussed insurance copay and that starting 08/06 copay is $25/day and starting 08/16 copay is $50/day. Kaylee states that she is agreeable and able to cover the $25 daily copay but not the $50 and pt will need to return home on or before 08/16. NRD is 08/12 and made aware of this and that continued stay is not guaranteed. SW updated therapy and will continue to follow for support and discharge planning. ANJUM Reyes
[2019-08-08] MEDS: LORazepam 0.5 MG Tablet PO (20:02)
[2019-08-08] MEDS: Atorvastatin Calcium 40 MG Tablet PO (20:03)
[2019-08-09 05:24] VITALS: BP 140/56; PULSE 65; RESP 16; TEMP 37.5; O2SAT 94
[2019-08-09] MEDS: Senna/Docusate Sodium 1 Tablet PO ×2 (05:27→16:00)
[2019-08-09] MEDS: Paroxetine 20 MG Tablet PO (05:27)
[2019-08-09] MEDS: amLODIPine 5 MG Tablet PO (05:27)
[2019-08-09] MEDS: Clopidogrel Bisulfate 75 MG Tablet PO (05:27)
[2019-08-09] MEDS: Polyethylene Glycol 3350 17 GM PACKET PO (05:27)
[2019-08-09] MEDS: Spironolactone 25 MG Tablet PO (05:27)
[2019-08-09] MEDS: Levothyroxine 50 MCG Tablet PO (05:27)
[2019-08-09] MEDS: Famotidine 20 MG Tablet PO (05:27)
[2019-08-09] MEDS: Nystatin Powder 15gm Bottle 1 APPLIC TOPICAL ×2 (05:29→16:00)
[2019-08-09] MEDS: Menthol/Lanolin/Calamine/Znox 113 GM Tube 1 APPLIC TOPICAL ×2 (05:30→16:00)
[2019-08-09] MEDS: Aspirin 81 MG TAB.CHEW PO (07:55)
[2019-08-09 14:02] VITALS: BP 150/70; PULSE 55; RESP 14; TEMP 36.9; O2SAT 97
--- NOTE | 2019-08-09 18:53 | CASEMGMT ---
Social work Phone call received from pt nephew Reji Duckworth who had pt on speaker phone. Reji expressing concerns that pt is not able to care for pt. SW reviewed Tuesday's conversation. continues to say she would like pt to return home. SW spoke with therapy who state pt is progressing and has potential to regain ability to care for self. RACHELE informed family of this. Tenative d/c date for 08/16 set with plan to return home. Reji picked up Medicaid application and will assist pt in completing in the event pt will need ECF. SW will continue to follow for d/c planning. ANJUM Reyes
[2019-08-09] MEDS: Atorvastatin Calcium 40 MG Tablet PO (20:25)
[2019-08-09] MEDS: LORazepam 0.5 MG Tablet PO (21:59)
[2019-08-10 05:14] VITALS: BP 129/73; PULSE 76; RESP 18; TEMP 36.2; O2SAT 95
[2019-08-10] MEDS: Levothyroxine 50 MCG Tablet PO (05:15)
[2019-08-10] MEDS: Paroxetine 20 MG Tablet PO (05:16)
[2019-08-10] MEDS: Famotidine 20 MG Tablet PO (05:16)
[2019-08-10] MEDS: amLODIPine 5 MG Tablet PO (05:16)
[2019-08-10] MEDS: Spironolactone 25 MG Tablet PO (05:16)
[2019-08-10] MEDS: Clopidogrel Bisulfate 75 MG Tablet PO (05:19)
[2019-08-10] MEDS: Nystatin Powder 15gm Bottle 1 APPLIC TOPICAL ×2 (05:20→17:05)
[2019-08-10] MEDS: Menthol/Lanolin/Calamine/Znox 113 GM Tube 1 APPLIC TOPICAL ×2 (05:21→17:05)
[2019-08-10] MEDS: Aspirin 81 MG TAB.CHEW PO (07:38)
[2019-08-10 14:52] VITALS: BP 121/63; PULSE 73; RESP 16; TEMP 36.6; O2SAT 97
--- NOTE | 2019-08-10 15:49 | CHAPLAIN ---
Type of Pastoral Visit ___ Initial Visit _x__ Follow-up Visit ___ On-call Visit ___ General Patient Visit ___ Spiritual Assessment ___ Family Conference ___ Bereavement ___ Rapid Response ___ Code Blue ___ Other (describe below) Pastoral Care Referral From _x__ Patient ___ Family ___ Nurse ___ Physician ___ It Risk Advisor ___ Location Analyst ___ Other (describe below) Sacrament/Intervention _x__ Active listening ___ Anointing ___ Mormonism ___ Bereavement ___ Communion _x__ Vicky exploration ___ ___ Life review _x__ Prayer ___ Reconciliation ___ Sacrament of Sick _x__ Supportive presence ___ Wedding ___ Other (describe below) Pastoral Comments entered room to find patient was playing the guitar; pt was reintroduced to this inventory control planner as he did not remember previous visit at start of admission; pt was agreeable and talkative; pt states that he has improved and that is apparent as speech and movements do appear to be much better than before; pt says that he is ready to go home and looks forward to that; pt says that he is bored and would like to be doing something; pt demonstrates his abilities on guitar and claims he can do more with hands today than he could yesterday; pt does admit that some hand strength and some speech skills can be improved yet; pt is member of a yarsani and that is discussed; pt is welcoming of spiritual care and of prayer support
[2019-08-10] MEDS: LORazepam 0.5 MG Tablet PO (20:54)
[2019-08-10] MEDS: Atorvastatin Calcium 40 MG Tablet PO (20:55)
[2019-08-11] MEDS: Paroxetine 20 MG Tablet PO (06:04)
[2019-08-11] MEDS: Polyethylene Glycol 3350 17 GM PACKET PO (06:04)
[2019-08-11] MEDS: Clopidogrel Bisulfate 75 MG Tablet PO (06:05)
[2019-08-11] MEDS: amLODIPine 5 MG Tablet PO (06:05)
[2019-08-11] MEDS: Senna/Docusate Sodium 1 Tablet PO (06:05)
[2019-08-11] MEDS: Nystatin Powder 15gm Bottle 1 APPLIC TOPICAL ×2 (06:05→16:34)
[2019-08-11] MEDS: Levothyroxine 50 MCG Tablet PO (06:05)
[2019-08-11] MEDS: Spironolactone 25 MG Tablet PO (06:05)
[2019-08-11] MEDS: Famotidine 20 MG Tablet PO (06:06)
[2019-08-11] MEDS: Menthol/Lanolin/Calamine/Znox 113 GM Tube 1 APPLIC TOPICAL ×2 (06:08→16:34)
[2019-08-11 06:24] VITALS: BP 112/65; PULSE 77; RESP 18; TEMP 36.7; O2SAT 94
[2019-08-11] MEDS: Aspirin 81 MG TAB.CHEW PO (09:10)
[2019-08-11 15:47] VITALS: BP 112/70; PULSE 92; RESP 16; TEMP 36.9; O2SAT 95
[2019-08-11] MEDS: Atorvastatin Calcium 40 MG Tablet PO (22:14)
[2019-08-11] MEDS: LORazepam 0.5 MG Tablet PO (22:14)
[2019-08-12 04:00] VITALS: BP 118/50; PULSE 69; RESP 15; TEMP 37.1; O2SAT 92
[2019-08-12] MEDS: Clopidogrel Bisulfate 75 MG Tablet PO (06:09)
[2019-08-12] MEDS: Levothyroxine 50 MCG Tablet PO (06:09)
[2019-08-12] MEDS: amLODIPine 5 MG Tablet PO (06:10)
[2019-08-12] MEDS: Famotidine 20 MG Tablet PO (06:10)
[2019-08-12] MEDS: Senna/Docusate Sodium 1 Tablet PO (06:10)
[2019-08-12] MEDS: Polyethylene Glycol 3350 17 GM PACKET PO (06:10)
[2019-08-12] MEDS: Paroxetine 20 MG Tablet PO (06:10)
[2019-08-12] MEDS: Spironolactone 25 MG Tablet PO (06:10)
[2019-08-12] MEDS: Menthol/Lanolin/Calamine/Znox 113 GM Tube 1 APPLIC TOPICAL ×2 (06:11→17:16)
[2019-08-12] MEDS: Nystatin Powder 15gm Bottle 1 APPLIC TOPICAL ×2 (06:12→17:16)
[2019-08-12 07:23] LABS: Absolute Lymphocyte Count 1.02 X10^3/uL (0.83-4.51); Absolute Neutrophil Count 5.4 X10^3/uL (2.0-7.7); Basophil# 0.06 X10^3/uL; Basophil% 0.8 % (0-1); Eosinophil# 0.22 X10^3/uL; Hemoglobin 13.9 g/dL (13.0-16.5); Lymphocyte # 1.02 X10^3/ul (4.0); Lymphocyte % 14.1 % (19-41); Mean Corp Hgb Conc 32.3 g/dL (32-36); Mean Corpuscular Hgb 30.8 pg (27.0-32.0); Mean Corpuscular Volume 95.1 fL (80-94); Mean Platelet Vol. 10.6 fl (6.2-12.0); Monocyte# 0.55 X10^3/uL; Monocyte% 7.6 % (0-10); NRBC Flagged by Analyzer 0 % (0-5); Neutrophil # 5.37 X10^3/uL (2.7-7.7); Neutrophil % 74.1 % (47-70); POSITIVE COUNT YES; Platelet Count 154 K/mm3 (150-450); RBC Distribution Width CV 13.6 % (11.6-14.6); RBC Distribution Width SD 47.4 fl (35.1-43.9); Red Blood Count 4.52 M/mm3 (4.6-6.2); White Blood Count 7.3 K/mm3 (4.4-11.0)
[2019-08-12 07:24] LABS: Differential Indicated SCAN CRITERIA MET
[2019-08-12 07:34] LABS: Anion Gap 4 (5-15); BUN 29 mg/dL (7-18); BUN/Creat Ratio 46.3 RATIO (10-20); Calcium,Total 8.3 mg/dL (8.5-10.1); Chloride 107 mmol/L (98-107); Creatinine, Serum 0.63 mg/dL (0.70-1.30); EST Glomerular Filtration Rate 131 mL/min (>60); Est Glom Filt Rate - Afr Amer 159 mL/min (>60); Glucose 97 mg/dL (74-106); Potassium 3.9 mmol/L (3.5-5.1); Sodium Level 138 mmol/L (136-145)
[2019-08-12 07:38] LABS: Differential Comment SCANNED
[2019-08-12] MEDS: Aspirin 81 MG TAB.CHEW PO (08:23)
[2019-08-12 14:47] VITALS: BP 135/68; PULSE 74; RESP 16; TEMP 36.4; O2SAT 94
[2019-08-12] MEDS: LORazepam 0.5 MG Tablet PO (21:27)
[2019-08-12] MEDS: Atorvastatin Calcium 40 MG Tablet PO (21:29)
[2019-08-13 05:56] VITALS: BP 116/54; PULSE 93; RESP 16; TEMP 36.7; O2SAT 91
[2019-08-13] MEDS: Polyethylene Glycol 3350 17 GM PACKET PO (05:58)
[2019-08-13] MEDS: Clopidogrel Bisulfate 75 MG Tablet PO (05:59)
[2019-08-13] MEDS: Senna/Docusate Sodium 1 Tablet PO (05:59)
[2019-08-13] MEDS: Spironolactone 25 MG Tablet PO (05:59)
[2019-08-13] MEDS: amLODIPine 5 MG Tablet PO (05:59)
[2019-08-13] MEDS: Paroxetine 20 MG Tablet PO (05:59)
[2019-08-13] MEDS: Famotidine 20 MG Tablet PO (05:59)
[2019-08-13] MEDS: Levothyroxine 50 MCG Tablet PO (06:00)
[2019-08-13] MEDS: Nystatin Powder 15gm Bottle 1 APPLIC TOPICAL ×2 (06:01→17:29)
[2019-08-13] MEDS: Menthol/Lanolin/Calamine/Znox 113 GM Tube 1 APPLIC TOPICAL ×2 (06:02→17:30)
[2019-08-13] MEDS: Aspirin 81 MG TAB.CHEW PO (08:13)
--- NOTE | 2019-08-13 12:48 | NURSING ---
Update provided to family.
[2019-08-13 14:00] VITALS: BP 150/74; PULSE 80; RESP 16; TEMP 36.9; O2SAT 96
--- NOTE | 2019-08-13 17:02 | CASEMGMT ---
Social Work Insurance issued LCD 08/14, DC 08/15. NOMNC issued to pt - pt agreeable. Spoke with son Gigi and is agreeable to DC. Explained outpatient vs HHC - son would like coverage from insurance for both to choose the cheaper option. [employer] - $17 copay/visit if pays at visit or $20 billed. [facility] PT/OT/ST/SN/SW - awaiting on coverage/acceptance. No DME needs. Will continue to follow. Mable Santana, LUCY SECURITY SYSTEM SALES CONSULTANT
[2019-08-13] MEDS: Atorvastatin Calcium 40 MG Tablet PO (20:31)
[2019-08-13] MEDS: LORazepam 0.5 MG Tablet PO (20:37)
[2019-08-14 04:59] VITALS: BP 129/71; PULSE 66; RESP 18; TEMP 36.9; O2SAT 98
[2019-08-14] MEDS: amLODIPine 5 MG Tablet PO (05:01)
[2019-08-14] MEDS: Levothyroxine 50 MCG Tablet PO (05:01)
[2019-08-14] MEDS: Spironolactone 25 MG Tablet PO (05:01)
[2019-08-14] MEDS: Clopidogrel Bisulfate 75 MG Tablet PO (05:01)
[2019-08-14] MEDS: Paroxetine 20 MG Tablet PO (05:01)
[2019-08-14] MEDS: Famotidine 20 MG Tablet PO (05:01)
[2019-08-14] MEDS: Nystatin Powder 15gm Bottle 1 APPLIC TOPICAL ×2 (05:03→17:07)
[2019-08-14] MEDS: Menthol/Lanolin/Calamine/Znox 113 GM Tube 1 APPLIC TOPICAL ×2 (05:04→17:07)
[2019-08-14] MEDS: Aspirin 81 MG TAB.CHEW PO (08:17)
--- NOTE | 2019-08-14 08:17 | DCINST_ITS ---
- Discharge Diagnoses Current Active Problems: Current Active and Chronic Problems (Last Reviewed 07/26/19 @ 06:[address] Delgado Barraza MD) Debility (Acute) Right hemiparesis (Acute) Chronic obstructive pulmonary disease (Chronic) Paralysis of left vocal cord (Chronic) Hypokalemia (Chronic) Coronary artery disease (Chronic) GERD (gastroesophageal reflux disease) (Chronic) Hypothyroidism (Chronic) Depression (Chronic) Dysphagia (Acute) You will use the following diet at home:: No restrictions, Regular Your food should be the consistency of: Regular Your liquids should be the consistency of: Regular/Thin Discharge Activity: Return to Normal Activity, May Shower, Use Walker Weight Bearing Status: Weight bearing as tolerated Call your doctor if you observe: Fever of 101 or Higher, Inability to urinate, Inability to have a bowel movement, Shortness of breath, Chest pain, Uncontrolled pain Allergies/Adverse Reactions: Allergies oxycodone [From Percodan] Allergy (Verified 07/25/19 23:06) Other Medications to take at Discharge potassium chloride 20 mEq tablet,extended release(part/cryst) 20 meq PO DAILY 90 Days #90 tab 06/09/17 Levothyroxine [Synthroid] 50 mcg PO DAILY 07/25/19 Paroxetine [Paxil] 20 mg PO DAILY 07/25/19 Amlodipine Besylate [Norvasc] 5 mg PO DAILY 07/28/19 Aspirin [Aspirin, Baby] 81 mg PO DAILY@0800 07/28/19 Atorvastatin Calcium [Lipitor] 40 mg PO QHS 07/28/19 Famotidine [Pepcid] 20 mg PO DAILY 07/28/19 Spironolactone [Aldactone] 25 mg PO DAILY 07/28/19 Acetaminophen [Tylenol] 1,000 mg PO Q6H PRN PRN tablet 08/14/19 Aspirin [Aspirin, Baby] 81 mg PO DAILY@0800 tab.chew 08/14/19 Clopidogrel Bisulfate [Plavix] 75 mg PO DAILY #30 tab 08/14/19 Menthol/Lanolin/Calamine/Znox [Calmoseptine Ointment] 1 applic TOPICAL BID tube 08/14/19 Nystatin Powder [Mycostatin Powder] 1 applic TOPICAL BID bottle 08/14/19 The following prescriptions were given: Clopidogrel Bisulfate [Plavix] 75 mg PO DAILY #30 tab Transmission Status: Pending to [facility]/pharmacy #[id number] Primary Care Physician: Shayne Moncada MD [Primary Care Provider] - Please follow up with your Primary Care Physician in: 1 week. Test Results: Test results from this visit will be discussed in further detail at your follow- up appointment, if applicable. Please Follow Up With: MD Coral, (PCP) Proposed Discharge Date: 08/16/19
--- NOTE | 2019-08-14 08:19 | PCM.DC.SUM ---
Discharge Date and Diagnosis - Problem List Patient Problems: Active and Suspected Problems (Last Reviewed 07/26/19 @ 06:[address] Delgado Barraza MD) Debility (Acute) Right hemiparesis (Acute) Dysphagia (Acute) Date of Admission: 07/25/19 Date of Discharge: 08/16/19 - Primary Discharge Diagnosis Acute Problems: Active Problems (Last Reviewed 07/26/19 @ 06:[address] Delgado Barraza MD) Debility (Acute) Right hemiparesis (Acute) Dysphagia (Acute) - Secondary Discharge Diagnosis Chronic Problems: Chronic Problems (Last Reviewed 07/26/19 @ 06:[address] Delgado Barraza MD) Anxiety (Chronic) Chronic obstructive pulmonary disease (Chronic) Paralysis of left vocal cord (Chronic) Hypokalemia (Chronic) Coronary artery disease (Chronic) GERD (gastroesophageal reflux disease) (Chronic) Hypothyroidism (Chronic) Depression (Chronic) Prostate CA (Chronic) Central sleep apnea (Chronic) Stage 2 moderate COPD by GOLD classification (Chronic) HTN (hypertension) (Chronic) Hoarseness (Chronic) left vocal cord paralysis (Chronic) Hospital Course and Treatment Imaging Results: 07/28/19 20:25 Diet: Cardiac/Low Cholesterol Food consistency:: Mechanical Soft/Ground Liquid Consistency:: [place] Thick Diet Comments: 1:1 SUPERVISION Operations: None Procedures: None Summary of Care Provided: The patient is a 78 year old Male with below past medical history hospitalized for left sided stroke, right hemiparesis, admitted to TCU with debility, here for rehabilitation, strengthening, prior to discharge home with . Discharge home with spouse, [facility] PT/OT/ST/SN/SW. Patient Problems: Active and Suspected Problems (Last Reviewed 07/26/19 @ 06:[address] Delgado Barraza MD) Debility (Acute) Right hemiparesis (Acute) Dysphagia (Acute) - Physical Exam Vitals/I&O's: Vital Signs Temp Pulse Resp BP Pulse Ox 98.5 F 66 18 129/71 H 98 08/14/19 04:59 08/14/19 04:59 08/14/19 04:59 08/14/19 04:59 08/14/19 04:59 Oxygen Delivery Method Room Air Weight: 88.224 kg Body Mass Index (BMI) 27.3 Finger Stick Blood Glucose 104 Intake and Output for Last 24 Hours 08/12/19 08/13/19 08/14/19 23:59 23:59 23:59 Intake Total 720 / 720 1200 / 1200 Output Total 100 / 100 Balance 720 / 720 1100 / 1100 Current Medications Acetaminophen (Tylenol) 1,000 mg PO Q6H PRN PRN PRN Reason: Pain Score 1-10/10 Amlodipine Besylate (Norvasc) 5 mg PO DAILY [facility] Last Admin: 08/14/19 05:01 Dose: 5 mg Documented by: Aspirin (Aspirin, Baby) 81 mg PO DAILY@0800 [facility] Last Admin: 08/14/19 08:17 Dose: 81 mg Documented by: Atorvastatin Calcium (Lipitor) 40 mg PO QHS [facility] Last Admin: 08/13/19 20:31 Dose: 40 mg Documented by: Bisacodyl (Dulcolax) 10 mg RECTAL DAILY PRN PRN Reason: Constipation Calamine/Phenol (Calmoseptine Ointment) 1 applic TOPICAL BID [facility]; Protocol Last Admin: 08/14/19 05:04 Dose: 1 applicatio Documented by: Clopidogrel Bisulfate (Plavix) 75 mg PO DAILY [facility] Last Admin: 08/14/19 05:01 Dose: 75 mg Documented by: Famotidine (Pepcid) 20 mg PO DAILY [facility] Last Admin: 08/14/19 05:01 Dose: 20 mg Documented by: Levothyroxine Sodium (Synthroid) 50 mcg PO DAILY [facility] Last Admin: 08/14/19 05:01 Dose: 50 mcg Documented by: Lorazepam (Ativan) 0.5 mg PO TID PRN PRN PRN Reason: ANXIETY Last Admin: 08/13/19 20:37 Dose: 0.5 mg Documented by: Nystatin (Mycostatin Powder) 1 applic TOPICAL BID [facility]; Protocol Last Admin: 08/14/19 05:03 Dose: 1 applicatio Documented by: Paroxetine HCl (Paxil) 20 mg PO DAILY [facility] Last Admin: 08/14/19 05:01 Dose: 20 mg Documented by: Polyethylene Glycol (Miralax) 17 gm PO DAILY [facility] Last Admin: 08/14/19 05:03 Dose: Not Given Documented by: [facility]assium [facility] ([facility]Dur) [facility] Last Admin: 08/14/19 08:17 Dose: 20 meq Documented by: Senna/Docusate Sodium (Senokot-S, Nallely-Colace) 1 tablet PO BID [facility] Last Admin: 08/14/19 05:04 Dose: Not Given Documented by: Sodium Chloride () 10 - 40 ml IV UD PRN PRN Reason: SALINE FLUSH Spironolactone (Aldactone) 25 mg PO DAILY [facility] Last Admin: 08/14/19 05:01 Dose: 25 mg Documented by: Discharge Diet: - - Mechanical Soft/Ground texture, [place] Thick liquids. Discharge Activity: Return to Normal Activity, May Shower, Use Walker Weight Bearing Status: Weight bearing as tolerated Call your doctor if you observe: Fever of 101 or Higher, Inability to urinate, Inability to have a bowel movement, Shortness of breath, Chest pain, Uncontrolled pain Home Medications: Medications to take at Discharge potassium chloride 20 mEq tablet,extended release(part/cryst) 20 meq PO DAILY 90 Days #90 tab 06/09/17 Levothyroxine [Synthroid] 50 mcg PO DAILY 07/25/19 Paroxetine [Paxil] 20 mg PO DAILY 07/25/19 Amlodipine Besylate [Norvasc] 5 mg PO DAILY 07/28/19 Aspirin [Aspirin, Baby] 81 mg PO DAILY@0800 07/28/19 Atorvastatin Calcium [Lipitor] 40 mg PO QHS 07/28/19 Famotidine [Pepcid] 20 mg PO DAILY 07/28/19 Spironolactone [Aldactone] 25 mg PO DAILY 07/28/19 Acetaminophen [Tylenol] 1,000 mg PO Q6H PRN PRN tablet 08/14/19 Aspirin [Aspirin, Baby] 81 mg PO DAILY@0800 tab.chew 08/14/19 Clopidogrel Bisulfate [Plavix] 75 mg PO DAILY #30 tab 08/14/19 Menthol/Lanolin/Calamine/Znox [Calmoseptine Ointment] 1 applic TOPICAL BID tube 08/14/19 Nystatin Powder [Mycostatin Powder] 1 applic TOPICAL BID bottle 08/14/19 Following Prescrptions Were Given to Patient: Clopidogrel Bisulfate [Plavix] 75 mg PO DAILY #30 tab Transmission Status: Pending to [facility]pharmacy #[id number] Primary Care Physician: Shayne Moncada MD [Primary Care Provider] - Please follow up with your Primary Care Physician in: 1 week. Please Follow Up With: MD Coral, (PCP) Disposition: Home with Home Health Minutes spent on discharge:: 35 Patient Condition:: Stable Medical Necessity - Tobacco Use Smoking Status: Former smoker Tobacco Use: Non-smoker Meaningful Use Info Meaningful Use Diagnoses (Choose all that apply): Ischemic CVA - CVA Therapy Assessed for PT,OT and/or ST?: Yes - Ischemic Stroke Antithrombotic order at d/c?: Yes Dx of Atrial fib/flutter?: No Statins at discharge?: Yes Primary Dx Acute Ischemic CVA?: Yes IV tPA ordered during stay?: No Reason IV t-PA not ordered: Treatment not Indicated
[2019-08-14 08:59] VITALS: PULSE 87; RESP 18; O2SAT 99
[2019-08-14 14:14] VITALS: BP 119/69; PULSE 83; RESP 17; TEMP 35.6; O2SAT 93
--- NOTE | 2019-08-14 17:04 | NURSING ---
blood sugar 96, OJ given. resting in bed watching TV, denies needs or c/o. call light in reach.
[2019-08-14] MEDS: Atorvastatin Calcium 40 MG Tablet PO (21:49)
[2019-08-14] MEDS: LORazepam 0.5 MG Tablet PO (21:49)
[2019-08-15 04:00] VITALS: BP 135/70; PULSE 74; RESP 17; TEMP 36.9; O2SAT 93
[2019-08-15] MEDS: amLODIPine 5 MG Tablet PO (05:46)
[2019-08-15] MEDS: Levothyroxine 50 MCG Tablet PO (05:46)
[2019-08-15] MEDS: Spironolactone 25 MG Tablet PO (05:46)
[2019-08-15] MEDS: Famotidine 20 MG Tablet PO (05:46)
[2019-08-15] MEDS: Paroxetine 20 MG Tablet PO (05:46)
[2019-08-15] MEDS: Clopidogrel Bisulfate 75 MG Tablet PO (05:46)
[2019-08-15] MEDS: Senna/Docusate Sodium 1 Tablet PO (05:46)
[2019-08-15] MEDS: Menthol/Lanolin/Calamine/Znox 113 GM Tube 1 APPLIC TOPICAL ×2 (05:53→17:13)
[2019-08-15] MEDS: Nystatin Powder 15gm Bottle 1 APPLIC TOPICAL ×2 (05:53→17:13)
[2019-08-15] MEDS: Aspirin 81 MG TAB.CHEW PO (08:23)
--- NOTE | 2019-08-15 14:10 | CASEMGMT ---
Social Work Pt does not have any copays or out of pocket expense for HHC. [facility]oke with [facility] and [facility] Referral made for PT/OT/ST/SN/SALAZAR/SW. No DME needs. Mable Santana, COUNSELOR AT LAW POWDERER
[2019-08-15 14:40] VITALS: BP 142/66; PULSE 75; RESP 18; TEMP 36.6; O2SAT 96
[2019-08-15] MEDS: Atorvastatin Calcium 40 MG Tablet PO (20:11)
[2019-08-15] MEDS: LORazepam 0.5 MG Tablet PO (20:13)
[2019-08-16 05:58] VITALS: BP 124/64; PULSE 75; RESP 17; TEMP 36.6; O2SAT 92
[2019-08-16] MEDS: Spironolactone 25 MG Tablet PO (06:00)
[2019-08-16] MEDS: Paroxetine 20 MG Tablet PO (06:00)
[2019-08-16] MEDS: Levothyroxine 50 MCG Tablet PO (06:00)
[2019-08-16] MEDS: Famotidine 20 MG Tablet PO (06:00)
[2019-08-16] MEDS: amLODIPine 5 MG Tablet PO (06:00)
[2019-08-16] MEDS: Clopidogrel Bisulfate 75 MG Tablet PO (06:00)
[2019-08-16] MEDS: Nystatin Powder 15gm Bottle 1 APPLIC TOPICAL (06:02)
[2019-08-16] MEDS: Menthol/Lanolin/Calamine/Znox 113 GM Tube 1 APPLIC TOPICAL (06:03)
[2019-08-16 08:00] VITALS: BP 145/82; PULSE 83; RESP 16; TEMP 36.7; O2SAT 97
[2019-08-16] MEDS: Aspirin 81 MG TAB.CHEW PO (08:11)
[2019-08-16 10:00] VITALS: PULSE 83; RESP 16; O2SAT 97
== END 2019-08-16 11:37 | disposition home health service (06) | DRG 57 ==
PROVIDERS: Admitting Provider Family Medicine Geriatric Medicine; PCP Family Medicine; Visit Provider Family Medicine Geriatric Medicine
DX: I69.351 Hemiplegia and hemiparesis following cerebral infarction affecting right dominant side (principal); Z23 Encounter for immunization; I69.322 Dysarthria following cerebral infarction; I69.392 Facial weakness following cerebral infarction; I10 Essential (primary) hypertension; G47.31 Primary central sleep apnea; K21.9 Gastro-esophageal reflux disease without esophagitis; E03.9 Hypothyroidism, unspecified; F32.9 Major depressive disorder, single episode, unspecified; I25.10 Atherosclerotic heart disease of native coronary artery without angina pectoris; J44.9 Chronic obstructive pulmonary disease, unspecified; J38.01 Paralysis of vocal cords and larynx, unilateral; Z87.891 Personal history of nicotine dependence; F41.9 Anxiety disorder, unspecified; E78.5 Hyperlipidemia, unspecified; E87.6 Hypokalemia
CPT/HCPCS: 36415; 80048; 82962; 85025; 87635; 92507; 92526; 92610; 97110; 97112; 97116; 97163; 97166; 97530; 97535; 97802; G0009; G2023; 90670; U0003

== ENCOUNTER 2020-03-04 10:03 | Outpatient (RCR) | payer MEDICARE, SELFPAY ==
[2020-01-10 10:20] VITALS: BMI 27.4
== END 2020-03-04 23:59 ==
LOC: IMMUN 10:03
PROVIDERS: PCP Family Medicine; Referring Provider Family Medicine; Visit Provider Family Medicine
DX: Z23 Encounter for immunization (principal)
CPT/HCPCS: 0011A; 0012A

== ENCOUNTER 2021-03-05 16:03 | Emergency (ER) | payer MEDICARE, SELFPAY ==
[2021-03-05 16:04] VITALS: PULSE 52; RESP 21; TEMP 36.2; O2SAT 99; BMI 24.7
[2021-03-05 16:09] VITALS: BP 166/78
--- NOTE | 2021-03-05 16:49 | EKG12_ITS ---
Test Reason : Blood Pressure : / mmHG Vent. Rate : 056 BPM Atrial Rate : 056 BPM P-R Int : 164 ms QRS Dur : 078 ms QT Int : 502 ms P-R-T Axes : 048 -01 038 degrees QTc Int : 484 ms Sinus bradycardia with Premature supraventricular complexes Prolonged QT Abnormal ECG Confirmed by MICHAEL GRAHAM, VERONICA ([id number]), business editor NURA PEARSON ([id number]) on 03/09/2021 10:54:38 AM Referred By: STEPHANI Confirmed By:VERONICA RODRIGUEZ MD
--- NOTE | 2021-03-05 16:50 | EX.ED.DYSGE1 ---
HPI History of Present Illness Chief Complaint: General Illness Narrative Narrative: 80-year-old male presenting with generalized fatigue. He states today he did not eat or drink anything but Peps[employer]. Patient states he has had this syndrome for 3 days. He denies chest pain or shortness of breath. He denies fever, chills, cough. He denies nausea or vomiting. He denies urinary complaints. He has no diarrhea or constipation. Patient states that he is ambulatory. 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) Hoarseness HTN (hypertension) left vocal cord paralysis Prostate CA Stage 2 moderate COPD by GOLD classification Stroke Home Medications potassium chloride 20 mEq tablet,extended release(part/cryst) 20 meq PO DAILY 90 Days #90 tab 06/09/17 [History Last Taken 09/11/17 16:00] levothyroxine 50 mcg PO DAILY 07/25/19 [History Last Taken 07/25/19 12:00] paroxetine HCl 20 mg PO DAILY 07/25/19 [History Last Taken Unknown] amlodipine 5 mg PO DAILY 07/28/19 [History Last Taken Unknown] atorvastatin 40 mg PO QHS 07/28/19 [History Last Taken Unknown] famotidine 20 mg PO DAILY 07/28/19 [History Last Taken Unknown] spironolactone 25 mg PO DAILY 07/28/19 [History Last Taken Unknown] acetaminophen 1,000 mg PO Q6H PRN PRN tab 08/14/19 [Rx Last Taken Unknown] aspirin 81 mg PO DAILY@0800 #30 tab.chew 08/17/19 [Rx Last Taken Unknown] clopidogrel 75 mg PO DAILY #30 tab 08/17/19 [Rx Last Taken Unknown] menthol-zinc oxide 1 applic TOPICAL BID #1 tube 08/17/19 [Rx Last Taken Unknown] nystatin 1 applic TOPICAL BID #1 bottle 08/17/19 [Rx Last Taken Unknown] cephalexin 500 mg PO Q12 #14 cap 03/05/21 [Rx Last Taken Unknown] Allergy/AdvReac Type Severity Reaction Status Date / Time oxycodone [From Percodan] Allergy Other Verified 03/05/21 17:31 Surgical History Cataract extraction status History of hip replacement History of open heart surgery Social History Smoking Status: Former smoker quit date: 02/08/92 pack-years: 37 Tobacco: How many years used: 20 alcohol intake: never substance use type: does not use ROS ROS ED Constitutional Constitutional ED: Denies chills or fever(s) Eyes Eyes: Denies blurry vision or diplopia ENT ENT ED: Denies rhinorrhea Cardiovascular Cardiovascular: Denies chest pain, palpitations or racing heartbeat Respiratory/Chest Respiratory/Chest: Denies cough or dyspnea Gastrointestinal Gastrointestinal: Denies abdominal pain, constipation, diarrhea, nausea or vomiting Genitourinary Genitourinary ED: Denies dysuria or hematuria Musculoskeletal Musculoskeletal: Denies arthralgias, back pain, myalgias or neck pain Integumentary Denies Abrasions or rash Neurologic Neurologic: Denies headache(s) or paresthesias EXAM Physical Exam Const Vital Signs: 03/05/21 16:04 03/05/21 16:07 03/05/21 16:09 Temperature 97.2 F L Temperature Source Temporal Pulse Rate 52 L Respiratory Rate 21 H Respiratory Effort Normal Non-Labored Respiratory Pattern Normal Blood Pressure 166/78 H Blood Pressure Mean 107 Pulse Ox 99 Oxygen Delivery Method Room Air Positive well nourished General Appearance ED: NAD; Negative for pallor HEENT Reports dry mucous membranes Negative for trauma Mouth ED: Yes dry mucous membranes Mouth: dry mucous membranes Eyes PERRL and EOMs intact bilaterally General Eye ED: Negative for pale conjunctiva or scleral icterus Neck no lymphadenopathy and supple Chest Wall inspection of chest normal and palpation of chest normal Resp normal respiratory effort and clear to auscultation bilaterally Cardio regular rhythm Rate: bradycardia GI normal to inspection, nondistended, normoactive bowel sounds Psych mental status grossly normal Skin General Skin Exam: Negative for jaundice or pallor MDM MDM MDM Narrative Medical decision making narrative: Patient presenting with symptoms of not wanting to eat or drink for the last 3 days. He denies nausea or vomiting. Has no pain anywhere. He does not have shortness of breath or cough. Patient is a fairly poor informant and is very hard of hearing and is difficult to get history. For this reason I did obtain cardiac work-up and blood work. EKG on my interpretation shows sinus bradycardia with a ventricular to 56 bpm without sign of ischemic change. QT slightly prolonged at 502, QTc 45. Chest x-ray my interpretation is no acute cardiopulmonary process the radiologist's read. CBC shows a leukocytosis. Hemoglobin and hematocrit are stable. Platelets are normal. Renal function and electrolytes are normal. Patient does have a mildly low total bilirubin. And his alkaline phosphatase is 121. Urinalysis is positive for infection and patient was given first dose of Keflex in the ER. To be given at course of Keflex for home. Urine was sent for culture. He is counseled on findings and he will follow-up with his PCP to ensure resolution. Impression: 1. Urinary tract infection. 2. Elevated bilirubin 3. Generalized weakness Lab Data Labs: Laboratory Results - last 24 hr 03/05/21 03/05/21 03/05/21 17:10 17:10 17:27 WBC 7.0 RBC 5.02 Hgb 14.8 Hct 44.6 MCV 88.8 MCH 29.5 MCHC 33.2 RDW Std Deviation 43.3 RDW Coeff of Erica 13.5 Plt Count 240 MPV 9.4 Immature Gran % (Auto) 1.300 H Neut % (Auto) 81.5 H Lymph % (Auto) 9.1 L [place] % (Auto) 7.4 Eos % (Auto) 0.3 Baso % (Auto) 0.4 Absolute Neuts (auto) 5.7 Absolute Lymphs (auto) 0.64 L Nucleated RBC % 0 Sodium 136 Potassium 4.8 Chloride 104 Carbon Dioxide 27.0 Anion Gap 5 BUN 25 H Creatinine 0.73 Estim Creat Clear Calc 61.70 Est GFR (MDRD) Af Amer 133 Est GFR (MDRD) Non-Af 110 BUN/Creatinine Ratio 34.3 H Glucose 86 Calcium 8.2 L Magnesium 2.6 Total Bilirubin 1.20 H AST 50 H ALT 46 Alkaline Phosphatase 121 H Troponin I High Sens 8 Total Protein 7.0 Albumin 3.1 L Globulin 3.9 Albumin/Globulin Ratio 0.8 L Urine Color Yellow Urine Clarity Sl. Cloudy Urine pH 5.0 Ur Specific [place] 1.020 Urine Protein 30 H Urine Glucose (UA) Normal Urine Ketones 5 H Urine Occult Blood 10 H Urine Nitrite Positive H Urine Bilirubin 1 H Urine Urobilinogen Normal Ur Leukocyte Esterase 25 H Urine RBC 0 SEEN Urine WBC 5-10 SEEN Ur Squamous Epith Cells 0 SEEN Urine Bacteria 3+ Urine Mucus 0 SEEN Radiography Diagnostic Testing: Clinical Impression(s) from Imaging Studies Chest X-Ray 03/05/21 17:20 IMPRESSION: There are no acute findings. Electronically Signed: José Cortez MD at 17:47 EST Reading Location ID and State: [facility] / [place] , Service support , Discharge Plan Triage Chief Complaint: General Illness ED Provider: William Paiz Dx/Rx/DC Orders Instructions: ED Bladder Infection, Male (Adult) Prescriptions: New cephalexin 500 mg capsule 500 mg PO Q12 Qty: 14 RF: 0 No Action potassium chloride 20 mEq tablet,ER particles/crystals 20 meq PO DAILY 90 Days Qty: 90 RF: 0 paroxetine HCl 20 MG tablet 20 mg PO DAILY RF: 0 levothyroxine 50 MCG tablet 50 mcg PO DAILY RF: 0 atorvastatin 40 MG tablet 40 mg PO QHS RF: 0 amlodipine 5 MG tablet 5 mg PO DAILY RF: 0 spironolactone 25 MG tablet 25 mg PO DAILY RF: 0 famotidine 20 MG tablet 20 mg PO DAILY RF: 0 acetaminophen 500 MG tablet 1,000 mg PO Q6H PRN PRN (Reason: Pain Score 1-10/10) RF: 0 aspirin 81 MG tablet,chewable 81 mg PO DAILY@0800 Qty: 30 RF: 0 clopidogrel 75 MG tablet 75 mg PO DAILY Qty: 30 RF: 0 menthol-zinc oxide 1 APPLIC ointment 1 applic topical BID Qty: 1 RF: 0 nystatin 1 APPLIC bottle 1 applic topical BID Qty: 1 RF: 0 Primary Care Provider: Shayne Moncada Referrals: Shayne Moncada MD [Primary Care Provider] - Disposition Disposition: Home, Self Care
--- NOTE | 2021-03-05 17:20 | RAD_ITS ---
STUDY: X-RAY CHEST REASON FOR EXAM: Male, 80 years old. Technologist Notes pt states feels achy, weakness, symptoms started x 1 weeks ago weakness TECHNIQUE: XR Chest 1 View COMPARISON: 07.25.19 FINDINGS: There is no demonstrated pleural abnormality. There are multiple median sternotomy wires. There is an elevated right hemidiaphragm. Normal size heart. Normal mediastinum and lucio. Normal visualized pulmonary arteries. There is atherosclerotic calcification of the aortic arch with tortuosity. There are diffuse degenerative changes of the visualized thoracic spine. There is degenerative osteoarthritis of the bilateral shoulders. There is no demonstrated abnormality of the visualized soft tissue structures of the upper abdomen. RAD/Chest 1 View (Portable) IMPRESSION: There are no acute findings. Electronically Signed: José Cortez MD at 17:47 EST ,
[2021-03-05 17:25] LABS: Absolute Lymphocyte Count 0.64 X10^3/uL (0.83-4.51); Absolute Neutrophil Count 5.7 X10^3/uL (2.0-7.7); Basophil# 0.03 X10^3/uL; Basophil% 0.4 % (0-1); Eosinophil# 0.02 X10^3/uL; Eosinophils% 0.3 % (0-5); Hematocrit 44.6 % (40-54); Hemoglobin 14.8 g/dL (13.0-16.5); Lymphocyte # 0.64 X10^3/ul (0.83-4.51); Lymphocyte % 9.1 % (19-41); Mean Corp Hgb Conc 33.2 g/dL (32-36); Mean Corpuscular Hgb 29.5 pg (27.0-32.0); Mean Corpuscular Volume 88.8 fL (80-94); Mean Platelet Vol. 9.4 fl (6.2-12.0); Monocyte# 0.52 X10^3/uL; Monocyte% 7.4 % (0-10); NRBC Flagged by Analyzer 0 % (0-5); Neutrophil # 5.71 X10^3/uL (2.7-7.7); Neutrophil % 81.5 % (47-70); Platelet Count 240 K/mm3 (150-450); RBC Distribution Width CV 13.5 % (11.6-14.6); RBC Distribution Width SD 43.3 fl (35.1-43.9); Red Blood Count 5.02 M/mm3 (4.6-6.2)
[2021-03-05 17:33] LABS: Mucous, Urine 0 SEEN /hpf (<or=2+); Red Blood Cells-Urine 0 SEEN /hpf (0-5); Squamous Epithelial Cells - UA 0 SEEN /hpf (0-5)
[2021-03-05 17:51] LABS: Color, Urine Yellow (Yellow); Glucose, Dipstick Normal (Normal); Ketone-Dipstick 5 mg/dl (Negative); Leukocyte Esterase-Dipstick 25 /ul (Negative); Nitrite-Dipstick Positive (Negative); Occult Blood-Urine 10 /ul (Negative); Protein-Dipstick 30 mg/dl (Negative); Urine Clarity Sl. Cloudy (Clear); Urine Urobilinogen Normal (Normal)
[2021-03-05 18:07] LABS: Urine Bilirubin Dipstick 1 mg/dL (Negative)
[2021-03-05 18:08] LABS: White Blood Cells 5-10 SEEN /hpf (0-5)
[2021-03-05 18:09] LABS: Bacteria 3+ /hpf (None Seen)
[2021-03-05 18:10] LABS: ALB/GLOB Ratio 0.8 RATIO (0.9-2.4); AST(SGOT) 50 U/L (15-37); Alanine Aminotransfer ALT/SGPT 46 U/L (16-61); Albumin, Serum 3.1 g/dL (3.2-5.0); Alkaline Phosphatase 121 U/L (45-117); Anion Gap 5 (5-15); BUN 25 mg/dL (7-18); BUN/Creat Ratio 34.3 RATIO (10-20); Calcium,Total 8.2 mg/dL (8.5-10.1); Chloride 104 mmol/L (98-107); Creatinine, Serum 0.73 mg/dL (0.70-1.30); EST Glomerular Filtration Rate 110 mL/min (>60); Est Glom Filt Rate - Afr Amer 133 mL/min (>60); Globulin 3.9 g/dL (2.2-4.2); Glucose 86 mg/dL (74-106); Magnesium 2.6 mg/dL (1.6-2.6); Potassium 4.8 mmol/L (3.5-5.1); Sodium Level 136 mmol/L (136-145); Troponin-I HS 8 pg/mL (3.0-78.0)
[2021-03-05 19:00] VITALS: BP 159/78; PULSE 89; RESP 18; O2SAT 99
[2021-03-05] MEDS: Ondansetron 4 MG/2 ML Vial IV (19:25)
[2021-03-05] MEDS: Cephalexin 250 MG Capsule 500 MG PO (19:25)
[2021-03-05 19:34] VITALS: RESP 16
--- NOTE | 2021-03-05 19:35 | ED.RN ---
REVIEWED D/C INSTRUCTIONS, FOLLOW UP CARE, PRESCRIPTION, AND S/S THAT WOULD WARRANT A RETURN TO THE ED WITH PT. PT VERBALIZED AN UNDERSTANDING AND DENIES FURTHER QUESTIONS FOR THIS RN. PT SKIN P/W/D, RESP EVEN AND UNLABORED, PT A&O X 3, NO DISTRESS NOTED. PT AMBULATED OUT OF ED, GAIT STEADY.
== END 2021-03-05 19:36 | disposition home or self-care (01) ==
PROVIDERS: Emergency Provider Student in an Organized Health Care Education/Training Program; PCP Family Medicine; Visit Provider Student in an Organized Health Care Education/Training Program
DX: N39.0 Urinary tract infection, site not specified (principal); R17 Unspecified jaundice; R53.83 Other fatigue; G47.33 Obstructive sleep apnea (adult) (pediatric); Z87.891 Personal history of nicotine dependence
CPT/HCPCS: 71045; 80053; 81001; 83735; 84484; 85025; 87077; 87086; 87088; 87186; 87426; 93005; 96374; 99284; A4216; J2405

== ENCOUNTER 2021-12-14 15:16 | Inpatient (IN) | payer MEDICARE, SELFPAY ==
[2021-12-14] VITALS (26 sets, daily range): BP systolic 106–153; BP diastolic 63–136; PULSE 71–121; RESP 14–30; TEMP 36.6–36.8; O2SAT 85–96; BMI 28.3; BMI 27.1
--- NOTE | 2021-12-14 16:04 | EKG12_ITS ---
Test Reason : SOB Blood Pressure : / mmHG Vent. Rate : 105 BPM Atrial Rate : 000 BPM P-R Int : 000 ms QRS Dur : 072 ms QT Int : 304 ms P-R-T Axes : 000 012 065 degrees QTc Int : 401 ms Atrial fibrillation with rapid ventricular response Minimal voltage criteria for LVH, may be normal variant ( Sokolow-Chou ) Nonspecific ST abnormality Abnormal ECG Confirmed by ALMA GRAHAM, MARIJA ([id number]), editor continuity and script NURA PEARSON ([id number]) on 12/16/2021 11:07:46 AM Referred By: Confirmed By:MARIJA MARQUEZ MD
--- NOTE | 2021-12-14 16:05 | EDS_ITS ---
HPI History of Present Illness Chief Complaint: Shortness of Breath Narrative Narrative: 81-year-old male presenting after family called for a well check. Patient found to be 84% on room air at home. He has a history of COPD. He states he has been wheezing a little bit. He states that a few days ago he mowed his own grass and started to have chest pain starting the day after this. He states he felt like he pulled the muscles in his chest. This lasted for 2 days. Patient states today he feels fine. Has not had a fever, chills, cough. He states he does not feel weak. Patient states he does not typically have to wear oxygen at home. He has a CPAP which he uses at night. He states he has not any fevers, chills, body aches. 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) Hoarseness HTN (hypertension) left vocal cord paralysis Prostate CA Stage 2 moderate COPD by GOLD classification Stroke Home Medications potassium chloride 20 mEq tablet,extended release(part/cryst) 20 meq PO DAILY SUPPLEMENT 90 days #90 tabs 06/09/17 [History Last Taken 09/11/17 16:00] levothyroxine 50 mcg tablet 50 mcg PO DAILY thyroid 07/25/19 [History Last Taken 07/25/19 12:00] paroxetine HCl 20 mg tablet 20 mg PO DAILY mood 07/25/19 [History Last Taken Unknown] amlodipine 5 mg tablet 5 mg PO DAILY bp 07/28/19 [History Last Taken Unknown] atorvastatin 40 mg tablet 40 mg PO QHS cholesterol 07/28/19 [History Last Taken Unknown] famotidine 20 mg tablet 20 mg PO DAILY stomach 07/28/19 [History Last Taken Unknown] spironolactone 25 mg tablet 25 mg PO DAILY diuretic 07/28/19 [History Last Taken Unknown] acetaminophen 500 mg tablet 1,000 mg PO Q6H PRN PRN Pain Score 1-11/1608/14/19 [Rx Last Taken Unknown] aspirin 81 mg chewable tablet 81 mg PO DAILY@0800 ##30 08/17/19 [Rx Last Taken Unknown] clopidogrel 75 mg tablet 75 mg PO DAILY #30 tabs 08/17/19 [Rx Last Taken Unknown] menthol 0.44 %-zinc oxide 20.6 % topical ointment 1 applic topical BID #1 tube 08/17/19 [Rx Last Taken Unknown] nystatin 100,000 unit/gram topical powder 1 applic topical BID ##1 08/17/19 [Rx Last Taken Unknown] cephalexin 500 mg capsule 500 mg PO Q12 #14 caps 03/05/21 [Rx Last Taken Unknown] Allergy/AdvReac Type Severity Reaction Status Date / Time oxycodone [From Percodan] Allergy Other Verified 03/05/21 17:31 Surgical History Cataract extraction status History of hip replacement History of open heart surgery Social History Smoking Status: Former smoker quit date: 02/08/92 pack-years: 37 Tobacco: How many years used: 20 alcohol intake: never substance use type: does not use EXAM Physical Exam Const Vital Signs: 12/14/21 15:17 12/14/21 15:21 12/14/21 15:22 Temperature 98.2 F Temperature Source Temporal Pulse Rate 71 Respiratory Rate 21 H Respiratory Effort Normal Respiratory Depth Normal Respiratory Pattern Normal Blood Pressure Blood Pressure Mean Pulse Ox 90 Oxygen Delivery Method Room Air Nasal Cannula Oxygen Flow Rate (L/min) 2 12/14/21 16:08 12/14/21 16:27 12/14/21 16:41 Temperature Temperature Source Pulse Rate 105 H 111 H Respiratory Rate 30 H 19 H Respiratory Effort Respiratory Depth Respiratory Pattern Hyperpnea Blood Pressure 148/93 H Blood Pressure Mean 111 Pulse Ox 94 93 Oxygen Delivery Method Nasal Cannula Nasal Cannula Oxygen Flow Rate (L/min) 2 2 12/14/21 17:05 Temperature 98.1 F Temperature Source Temporal Pulse Rate 121 H Respiratory Rate 21 H Respiratory Effort Respiratory Depth Respiratory Pattern Blood Pressure 127/105 H Blood Pressure Mean 112 Pulse Ox 93 Oxygen Delivery Method Nasal Cannula Oxygen Flow Rate (L/min) 2 Positive well nourished General Appearance ED: NAD; Negative for pallor HEENT Reports moist mucous membranes atraumatic Eyes PERRL and EOMs intact bilaterally General Eye ED: Negative for pale conjunctiva or scleral icterus Neck no lymphadenopathy Resp Resp Narrative: Mild tachypnea. No accessory muscle use. Patient speaking in full sentences. Auscultation: wheezes expiratory wheezes and throughout Cardio regular rate and regular rhythm GI non-tender Neuro oriented x3 and CN's II-XII intact bilaterally Sensorium / Orientation: alert Speech: speech normal Psych mental status grossly normal Skin no wounds General Skin Exam: Negative for jaundice or pallor MDM MDM MDM Narrative Medical decision making narrative: Patient presenting with hypoxia. Apparently was 84% when EMS picked him up. He has been 90% here. He is staying that way on 2 L. He reports he does not usually use home oxygen. He does have a CPAP that he uses at night. He states that he did have chest pain for couple of days after mowing the lawn but felt like it was muscular in nature. He states he does not have any pain today. Apparently family called for a well check and he was found to be hypoxic. On examination he is wheezing and he does feel little bit tight. He is given breathing treatments and Solu-Medrol. Given obtained blood work, imaging. Patient's EKG shows an irregular irregular rhythm at 105 bpm. Consistent with atrial fibrillation on my interpretation. We will back to evaluate the patient and his heart rate is in the 1 10-1 20 range and looks irregular. CBC shows slight leukocytosis of 16.3, hemoglobin stable 13.3, platelets normal 199. Creatinine is normal at 0.97. Chest x-ray my interpretation concerning for p ossible lingular pneumonia. The radiologist agree. The patient not have any cough, fever. He states he feels great. He does have a leukocytosis of 16 however. His high sensitive troponin came back at 522. Is unclear whether this is from this chest pain he had over the last couple of days that is now resolved or if this is from hypoxia given his oxygen sats have been low at home. He states he is not having any pain now. Again he states he feels great. Discussed patient with hospitalist. Patient's troponins will be trended. Heparin drip and antibiotics as needed. Patient will likely need to be started on anticoagulation due to new onset atrial fibrillation. He was given Cardizem 20 mg IV in the emergency room for better rate control as he is between 105 and 120 currently. Impression: 1. History of chest pain 2. COPD exacerbation 3. NSTEMI 4. Leukocytosis 5. Lingular infiltrate 6. Toxic respiratory failure 7. Atrial fibrillation Lab Data Attestation: I reviewed the patient's lab results. Labs: Laboratory Results - last 24 hr 12/14/21 12/14/21 15:55 15:55 WBC 16.3 H RBC 4.32 L Hgb 13.3 Hct 41.1 MCV 95.1 H MCH 30.8 MCHC 32.4 RDW Std Deviation 47.7 H RDW Coeff of Erica 13.5 Plt Count 199 MPV 8.8 Immature Gran % (Auto) 0.800 Neut % (Auto) 90.8 H Lymph % (Auto) 2.6 L [place] % (Auto) 5.6 Eos % (Auto) 0.0 Baso % (Auto) 0.2 Absolute Neuts (auto) 14.8 H Absolute Lymphs (auto) 0.43 L Nucleated RBC % 0 Sodium 135 L Potassium 4.1 Chloride 101 Carbon Dioxide 30.0 Anion Gap 4 L BUN 36 H Creatinine 0.97 Estim Creat Clear Calc 62.53 Est GFR (MDRD) Af Amer 95 Est GFR (MDRD) Non-Af 79 BUN/Creatinine Ratio 37.1 H Glucose 108 H Calcium 9.2 Troponin I High Sens 522 H* Radiography Diagnostic Testing: Clinical Impression(s) from Imaging Studies Chest X-Ray 12/14/21 16:15 IMPRESSION: Lingular pneumonia. Electronically Signed: Sadi Joseph MD at 16:53 EST , Discharge Plan Triage Chief Complaint: Shortness of Breath ED Provider: William Paiz Dx/Rx/DC Orders Primary Care Provider: Shayne Moncada
[2021-12-14] MEDS: MethylPREDNISolone 125 MG/2 ML Vial IV (16:14)
--- NOTE | 2021-12-14 16:15 | RAD_ITS ---
STUDY: X-RAY CHEST REASON FOR EXAM: Male, 81 years old. chest pain TECHNIQUE: Single AP portable view of the chest. COMPARISON: 03/05/2009 FINDINGS: Status post median sternotomy. Alveolar opacity in the lower left lung silhouettes the left heart border consistent with lingular pneumonia. Elevated right hemidiaphragm which is unchanged. Normal size heart. Normal mediastinum and lucio. Normal visualized pulmonary arteries. Normal visualized aortic arch and descending thoracic aorta. Normal visualized thoracic spine. Normal visualized ribs, clavicles, and shoulders. There is no demonstrated abnormality of the visualized soft tissue structures of the upper abdomen. RAD/Chest 1 View (Portable) IMPRESSION: Lingular pneumonia. Electronically Signed: Sadi Joseph MD at 16:53 EST ,
[2021-12-14 16:16] LABS: Absolute Lymphocyte Count 0.43 X10^3/uL (0.83-4.51); Absolute Neutrophil Count 14.8 X10^3/uL (2.0-7.7); Basophil# 0.04 X10^3/uL; Basophil% 0.2 % (0-1); Hematocrit 41.1 % (40-54); Hemoglobin 13.3 g/dL (13.0-16.5); Lymphocyte # 0.43 X10^3/ul (0.83-4.51); Lymphocyte % 2.6 % (19-41); Mean Corp Hgb Conc 32.4 g/dL (32-36); Mean Corpuscular Hgb 30.8 pg (27.0-32.0); Mean Corpuscular Volume 95.1 fL (80-94); Mean Platelet Vol. 8.8 fl (6.2-12.0); Monocyte# 0.91 X10^3/uL; Monocyte% 5.6 % (0-10); NRBC Flagged by Analyzer 0 % (0-5); Neutrophil # 14.78 X10^3/uL (2.7-7.7); Neutrophil % 90.8 % (47-70); POSITIVE DIFFERENTIAL YES; Platelet Count 199 K/mm3 (150-450); RBC Distribution Width CV 13.5 % (11.6-14.6); RBC Distribution Width SD 47.7 fl (35.1-43.9); Red Blood Count 4.32 M/mm3 (4.6-6.2); White Blood Count 16.3 K/mm3 (4.4-11.0)
[2021-12-14] MEDS: Albuterol 2.5 MG/3 ML VIAL.NEB. INHALATION (16:20)
[2021-12-14] MEDS: Ipratropium/Albuterol Sulfate 3 ML AMPUL.NEB INHALATION (16:20)
[2021-12-14 16:23] LABS: Differential Indicated SCAN CRITERIA MET
[2021-12-14 16:36] LABS: Anion Gap 4 (5-15); BUN 36 mg/dL (7-18); BUN/Creat Ratio 37.1 RATIO (10-20); Calcium,Total 9.2 mg/dL (8.5-10.1); Chloride 101 mmol/L (98-107); Creatinine, Serum 0.97 mg/dL (0.70-1.30); EST Glomerular Filtration Rate 79 mL/min (>60); Est Glom Filt Rate - Afr Amer 95 mL/min (>60); Estimated Creatinine Clearance 62.53 ml/min; Glucose 108 mg/dL (74-106); Potassium 4.1 mmol/L (3.5-5.1); Sodium Level 135 mmol/L (136-145); Troponin-I HS 522 pg/mL (3.0-78.0)
--- NOTE | 2021-12-14 16:37 | ED.RN ---
Whqq=[id number]. Dr Paiz made aware.
--- NOTE | 2021-12-14 17:04 | NURSING ---
procurement technician informed RN that patients son would like to talk to nurse. Rn has entered patients room and son was not at bedside. Patient states his son left somewhere.
--- NOTE | 2021-12-14 17:23 | HP.PCM.HOS_ITS ---
HPI - General General Date of Admission: 12/14/21 Date of Service: 12/14/21 Chief Complaint: shortness of breath. HPI Narrative ARTURO LUNA, is a 81 M who presents with shortness of breath. 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 Afterwards, his whole chest felt sore but eventually did get better. Patient states that he is not driving a tractor at all this year until few days ago. Is also been short of breath. Denies any fever or chills. Family was concerned and brought the patient into the emergency room. Patient does not use oxygen at home but was noted to be 90% on room air on assessment plan this time 2 L. Patient was also noted to be in A. fib with RVR with heart rates in the 140s. Patient denies any history of atrial fibrillation. X-ray was concerning for left lingular pneumonia. Patient denies any fever chills or cough. [facility] Medical History (Updated 12/14/21 @ 17:[address] 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) Hoarseness HTN (hypertension) left vocal cord paralysis Prostate CA Stage 2 moderate COPD by GOLD classification Stroke Home Medications levothyroxine 50 mcg tablet 50 mcg PO DAILY thyroid 07/25/19 [History Last Taken 07/25/19 12:00] paroxetine HCl 20 mg tablet 20 mg PO DAILY mood 07/25/19 [History Last Taken Unknown] amlodipine 5 mg tablet 5 mg PO DAILY bp 07/28/19 [History Last Taken Unknown] atorvastatin 40 mg tablet 40 mg PO QHS cholesterol 07/28/19 [History Last Taken Unknown] famotidine 20 mg tablet 20 mg PO DAILY stomach 07/28/19 [History Last Taken Unknown] spironolactone 25 mg tablet 25 mg PO DAILY diuretic 07/28/19 [History Last Taken Unknown] acetaminophen 500 mg tablet 1,000 mg PO Q6H PRN PRN Pain Score 1-11/1608/14/19 [Rx Last Taken Unknown] aspirin 81 mg chewable tablet 81 mg PO DAILY@0800 health 12/14/21 [History Last Taken 12/14/21] atenolol 50 mg tablet 50 mg PO DAILY bp 12/14/21 [History Last Taken 12/14/21] cephalexin 500 mg capsule 500 mg PO Q12 infection 12/14/21 [History Last Taken Unknown] clopidogrel 75 mg tablet 75 mg PO DAILY blood thinner 12/14/21 [History Last Taken Unknown] escitalopram oxalate 20 mg tablet 20 mg PO DAILY depression 12/14/21 [History Last Taken 12/14/21] gabapentin 100 mg capsule 200 mg PO QHS foot pain 12/14/21 [History Last Taken 12/14/21] menthol 0.44 %-zinc oxide 20.6 % topical ointment 1 applic TOPICAL BID skin 12/14/21 [History Last Taken Unknown] nystatin 100,000 unit/gram topical powder 1 applic TOPICAL BID skin 12/14/21 [History Last Taken Unknown] potassium chloride 10 mEq tablet,extended release 20 meq PO DAILY supplement 12/14/21 [History Last Taken 12/14/21] Allergy/AdvReac Type Severity Reaction Status Date / Time oxycodone [From Percodan] Allergy Other Verified 03/05/21 17:31 Surgical History Cataract extraction status History of hip replacement History of open heart surgery Social History Smoking Status: Former smoker quit date: 02/08/92 pack-years: 37 Tobacco: How many years used: 20 alcohol intake: never substance use type: does not use ROS ROS Narrative Denies any lower extremity edema. All review of systems were negative except as mentioned above in the history of present illness and the other review of systems. Vital Signs Vital Signs Vital Signs: 12/14/21 15:17 12/14/21 15:21 12/14/21 15:22 Temperature 36.8 C Temperature Source Temporal Pulse Rate 71 Respiratory Rate 21 H Respiratory Effort Normal Respiratory Depth Normal Respiratory Pattern Normal Blood Pressure Blood Pressure Mean Pulse Ox 90 Oxygen Delivery Method Room Air Nasal Cannula Oxygen Flow Rate (L/min) 2 12/14/21 16:08 12/14/21 16:27 12/14/21 16:41 Temperature Temperature Source Pulse Rate 105 H 111 H Respiratory Rate 30 H 19 H Respiratory Effort Respiratory Depth Respiratory Pattern Hyperpnea Blood Pressure 148/93 H Blood Pressure Mean 111 Pulse Ox 94 93 Oxygen Delivery Method Nasal Cannula Nasal Cannula Oxygen Flow Rate (L/min) 2 2 12/14/21 17:05 Temperature 36.7 C Temperature Source Temporal Pulse Rate 121 H Respiratory Rate 21 H Respiratory Effort Respiratory Depth Respiratory Pattern Blood Pressure 127/105 H Blood Pressure Mean 112 Pulse Ox 93 Oxygen Delivery Method Nasal Cannula Oxygen Flow Rate (L/min) 2 Weight Weight: 92.3 kg Body Mass Index (BMI) 28.3 Physical Exam Const alert, no apparent distress and average body habitus Constitutional Narrative: Hard of hearing. No respiratory distress. No conversational dyspnea. HEENT normocephalic, head/scalp atraumatic and hearing grossly normal bilaterally Eyes EOMs intact bilaterally Eyes Narrative: No icterus Neck no lymphadenopathy and no JVD Resp Resp Narrative: Diminished bilaterally with some expiratory wheeze. Cardio Cardio Narrative: Irregularly irregular GI normal to inspection, nondistended, normoactive bowel sounds, soft to palpation, non-tender and non-distended Extremity normal to inspection Extremity Narrative: Reproducible diffuse anterior wall chest pain. Skin Skin Narrative: No rashes or sores Neuro oriented x3 and CN's II-XII intact bilaterally Sensorium / Orientation: awake and alert Results Lab / Micro Data Attestation: I reviewed the patient's lab results. Result Diagrams: 12/14/21 15:55 12/14/21 15:55 Labs: Laboratory Results - last 24 hr 12/14/21 15:55: WBC 16.3 H, RBC 4.32 L, Hgb 13.3, Hct 41.1, MCV 95.1 H, MCH 30.8, MCHC 32.4, RDW Std Deviation 47.7 H, RDW Coeff of Erica 13.5, Plt Count 199, MPV 8.8, Immature Gran % (Auto) 0.800, Neut % (Auto) 90.8 H, Lymph % (Auto) 2.6 L, [place] % (Auto) 5.6, Eos % (Auto) 0.0, Baso % (Auto) 0.2, Absolute Neuts (auto) 14.8 H, Absolute Lymphs (auto) 0.43 L, Nucleated RBC % 0 12/14/21 15:55: Sodium 135 L, Potassium 4.1, Chloride 101, Carbon Dioxide 30.0, Anion Gap 4 L, BUN 36 H, Creatinine 0.97, Estim Creat Clear Calc 62.53, Est GFR (MDRD) Af Amer 95, Est GFR (MDRD) Non-Af 79, BUN/Creatinine Ratio 37.1 H, Glucose 108 H, Calcium 9.2, Troponin I High Sens 522 H* Micro: Microbiology 12/14/21 16:10 Nasal Secretion SARS-CoV-2 Antigen (Rapid) - Final EKG Initial EKG: EKG Rhythm Intrepretation: Atrial Fibrillation (With RVR) Radiology Impression Chest X-Ray 12/14/21 16:15 IMPRESSION: Lingular pneumonia. Electronically Signed: Sadi Joseph MD at 16:53 EST , Assessment & Plan Assessment/Plan (1) Paroxysmal atrial fibrillation with RVR: PLAN: New diagnosis Patient received diltiazem bolus in the emergency room. Continue with drip on the floor. Check echocardiogram Consult cardiology Anticoagulation with enoxaparin Check TSH (2) Non-STEMI (non-ST elevated myocardial infarction): PLAN: Suspect type II event given A. fib, COPD and pneumonia Cycle troponins Anticoagulation with enoxaparin Consult cardiology Check records from [facility] where his bypass was performed (3) Pneumococcal pneumonia: QUALIFIERS: Laterality: left Lung location: lower lobe of lung Qualified Code(s): J13 - Pneumonia due to Streptococcus pneumoniae PLAN: Left lingular pneumonia seen. Antibiotics with ceftriaxone and azithromycin Check sputum culture, check urinary antigens for Streptococcus and Legionella (4) Acute exacerbation of COPD with asthma: PLAN: Methylprednisolone hold on bronchodilators given the atrial fibrillation with RVR PLAN: Plan Chronic conditions * Anxiety: * CAD: Continue with aspirin, atorvastatin and clopidogrel * History of CVA: Continue with aspirin, atorvastatin and clopidogel * Hypothyroidism: Check TSH: Continuewith levothyroxine VTE prophylaxis: Not indicated given anticoagulation CODE STATUS: Addressed with patient. Patient wishes to be full code Charges/Coding Visit Charges Inpatient E&M: 20410 Init Hosp L3
[2021-12-14] MEDS: dilTIAZem 25 MG/5 ML Vial 20 MG IV BOLUS (17:31)
[2021-12-14 18:13] LABS: Troponin-I HS 425 pg/mL (3.0-78.0)
--- NOTE | 2021-12-14 18:26 | ECHOD_ITS ---
Reason For Study: AFIB/FLUTTER Procedure This was a 2D Doppler, Color Flow transthoracic echocardiogram. Exam performed portable in patient room. Left Ventricle Normal LV size. Left ventricular systolic function is normal. The estimated ejection fraction is 55 %. No regional wall motion abnormalities noted. Right Ventricle Normal RV size. Normal systolic function. Atria Normal left atrium. Normal right atrium. Mitral Valve Normal mitral valve. Tricuspid Valve Normal tricuspid valve. Aortic Valve Normal aortic valve. Trisinus/trileaflet aortic valve. Pulmonic Valve Normal pulmonic valve. Great Vessels Normal aortic root. The pulmonary artery is normal size. Normal inferior vena cava. Pericardium/Pleural No pericardial effusion. MMode/2D Measurements & Calculations LVIDd: 5.5 cm IVSd: 1.3 cm Ao root diam: 4.1 cm LVIDs: 3.5 cm LVPWd: 1.3 cm FS: 37.4 % LAV(MOD-bp): 84.4 ml LA A4 area: 24.0 cm2 LA dimension(2D): 5.0 cm LAV(MOD-bp) Indexed: 40.6 ml/m2 LAV(MOD-sp2): 77.0 ml LAV(MOD-sp4): 83.6 ml RA A4 area: 13.4 cm2 Time Measurements MV dec time: 0.26 sec Doppler Measurements & Calculations MV E max dung: 77.5 cm/sec Lat Peak E' Dung: 7.9 cm/sec Med Peak E' Dung: 6.9 cm/sec MV A max dnug: 63.7 cm/sec E/E' lat: 9.8 E/E' med: 11.3 MV E/A: 1.2 MV dec slope: 295.7 cm/sec2 Ao V2 max: 131.2 cm/sec LV V1 max: 101.7 cm/sec Ao max P.1 mmHg LV V1 max P.2 mmHg Ao V2 mean: 91.1 cm/sec LV V1 mean P.3 mmHg Ao mean P.9 mmHg LV V1 mean: 71.8 cm/sec Ao V2 VTI: 29.7 cm LV V1 VTI: 22.7 cm PA V2 max: 111.0 cm/sec PI end-d dung: 136.4 cm/sec ECHO/Echo Complete Interpretation Summary Normal LV size. Left ventricular systolic function is normal. The estimated ejection fraction is 55 %. Structurally normal valves. Ordering Physician: Lamberto Dinero Referring Physician: Shayne Moncada Performed By: Mary Gipson, MAIDA, RVT
--- NOTE | 2021-12-14 18:41 | CON.PCM.CA_ITS ---
Assessment & Plan Assessment/Plan (1) Non-STEMI (non-ST elevated myocardial infarction): PLAN: He does presents with elevated cardiac enzymes with shortness of breath. The etiology of the above is not entirely clear whether this is a type I or type II event. I would recommend that we continue to monitor his cardiac enzymes. He will be started on anticoagulation nonetheless. He is on aspirin as well as clopidogrel. * Will consider his high intensity statin * Will continue the beta-karis for now. (2) Paroxysmal atrial fibrillation with RVR: PLAN: He does have a history of atrial fibrillation which appears to be new onset. I will review the records further to see whether he has had any previous episodes of the above. * An echocardiogram should be performed to assess his ventricular function * I would like to obtain a natruretic peptide level to make sure that he is not in heart failure. * He will start anticoagulation due to his elevated [id number] score of at least 3 (3) HTN (hypertension): PLAN: He does have a history of hypertension and will continue on his amlodipine and his beta-karis. An echocardiogram be performed to assess his ventricular function as well. Thank you for allowing me to participate in the care of your patient. Please don't hesitate to call if any issues arise. HPI Consult Data Date of Consult: 12/14/21 HPI Narrative HPI Narrative: ARTURO LUNA, is a 81 M who presents to the emergency room complaining of fatigue as well as shortness of breath. He apparently had been doing well in the ensuing few days. His family checked on him and found him to be rather fatigued and short of breath and so asked him to come to the emergency room. In the emergency room he was noted to be in atrial fibrillation with rapid ventricular response rate and blood work demonstrated an elevated troponin. He was treated with intravenous diltiazem as well as anticoagulation. Cardiology was called for further evaluation and management. 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) Hoarseness HTN (hypertension) left vocal cord paralysis Prostate CA Stage 2 moderate COPD by GOLD classification Stroke Home Medications levothyroxine 50 mcg tablet 50 mcg PO DAILY thyroid 07/25/19 [History Last Taken 12/14/21] paroxetine HCl 20 mg tablet 20 mg PO DAILY mood 07/25/19 [History Last Taken Unknown] amlodipine 5 mg tablet 5 mg PO DAILY bp 07/28/19 [History Last Taken Unknown] atorvastatin 40 mg tablet 40 mg PO QHS cholesterol 07/28/19 [History Last Taken 12/14/21] famotidine 20 mg tablet 20 mg PO DAILY stomach 07/28/19 [History Last Taken Unknown] spironolactone 25 mg tablet 25 mg PO DAILY diuretic 07/28/19 [History Last Taken 12/14/21] acetaminophen 500 mg tablet 1,000 mg PO Q6H PRN PRN Pain Score 1-11/1608/14/19 [Rx Last Taken Unknown] aspirin 81 mg chewable tablet 81 mg PO DAILY@0800 health 12/14/21 [History Last Taken 12/14/21] atenolol 50 mg tablet 50 mg PO DAILY bp 12/14/21 [History Last Taken 12/14/21] cephalexin 500 mg capsule 500 mg PO Q12 infection 12/14/21 [History Last Taken Unknown] clopidogrel 75 mg tablet 75 mg PO DAILY blood thinner 12/14/21 [History Last Taken Unknown] escitalopram oxalate 20 mg tablet 20 mg PO DAILY depression 12/14/21 [History Last Taken 12/14/21] gabapentin 100 mg capsule 200 mg PO QHS foot pain 12/14/21 [History Last Taken 12/14/21] menthol 0.44 %-zinc oxide 20.6 % topical ointment 1 applic TOPICAL BID skin 12/14/21 [History Last Taken Unknown] nystatin 100,000 unit/gram topical powder 1 applic TOPICAL BID skin 12/14/21 [History Last Taken Unknown] potassium chloride 10 mEq tablet,extended release 20 meq PO DAILY supplement 12/14/21 [History Last Taken 12/14/21] Allergy/AdvReac Type Severity Reaction Status Date / Time oxycodone [From Percodan] Allergy Other Verified 03/05/21 17:31 Surgical History Cataract extraction status History of hip replacement History of open heart surgery Social History Smoking Status: Former smoker quit date: 02/08/92 pack-years: 37 Tobacco: How many years used: 20 alcohol intake: never substance use type: does not use ROS Constitutional Constitutional: Denies fever(s) or weight loss Eyes Eyes: Reports systems reviewed and no addt'l complaints, except as documented ENT HEENT: Reports systems reviewed and no addt'l complaints, except as documented Cardiovascular Cardiovascular: Reports dyspnea at rest and dyspnea on exertion; Denies chest pain at rest, chest pain with activity, edema, palpitations or paroxysmal nocturnal dyspnea Respiratory/Chest Respiratory/Chest: Denies dyspnea on exertion, productive cough, shortness of breath at rest or shortness of breath with exertion Gastrointestinal Gastrointestinal: Denies change in bowel habits, nausea, vomiting or weight changes Genitourinary Genitourinary: Denies difficulty urinating Musculoskeletal Musculoskeletal: Denies joint stiffness or muscle weakness Integumentary Integumentary: Denies lesions Neurologic Neurologic: Denies dizziness or syncope Psychiatric Psychiatric: Denies anxiety Endocrine Endocrinology: Denies excessive sweating or fatigue Hematologic/Lymphatic Hematologic/Lymphatic: Denies anemia Allergic/Immunologic Allergic/Immunologic: Denies seasonal rhinorrhea Physical Exam Const alert, oriented x3 and no apparent distress General Appearance: cooperative HEENT hearing grossly normal bilaterally Head and Scalp: atraumatic Eyes EOMs intact bilaterally Neck General: normal visual inspection Chest inspection of chest normal and palpation of chest normal Resp normal respiratory effort Auscultation: clear to auscultation bilaterally Cardio S1 normal heart sound and S2 normal heart sound Jugular Venous Distention: JVD Rhythm: abnormal rhythm irregularly irregular GI normal to inspection, nondistended, normoactive bowel sounds Extremity normal capillary refill General Extremity: edema Peripheral Pulses: Yes pulses 2+ throughout and femoral pulses present Skin no rashes or lesions noted Neuro oriented x3 and CN's II-XII intact bilaterally Psych Appearance: grossly normal and appropriate Risk Stratification Risk Stratification Applicable: Yes Age >/= 65: Yes >/= 3 CAD Risk Factors (HTN, HLD, DM, family hx of CAD, or current smoker): Yes Aspirin Use in the Past 7 Days: Yes Severe Angina (>/= episodes in 24 hours): No EKG ST Changes >/= 0.5mm: No Positive Cardiac Marker: Yes NAVEEN Risk Stratification Score: 4 NAVEEN % Risk: 20% Risk Objective Data Vital Signs: Vital Signs Temp Pulse Resp BP Pulse Ox O2 Del Method O2 Flow Rate 98.2 F 104 H 24 H 143/82 H 92 Nasal Cannula 2 11/07/22 18:15 12/14/21 18:29 12/14/21 18:15 12/14/21 18:15 12/14/21 18:15 12/14/21 18:15 12/14/21 18:15 Oxygen Flow Rate (L/min) 2 Oxygen Delivery Method Nasal Cannula Weight: 194 lb 4.8 oz Body Mass Index (BMI) 27.1 Lab / Micro Data Result Diagrams: 12/14/21 15:55 12/14/21 15:55 Labs: Laboratory Results - last 24 hr 12/14/21 15:55: WBC 16.3 H, RBC 4.32 L, Hgb 13.3, Hct 41.1, MCV 95.1 H, MCH 30.8, MCHC 32.4, RDW Std Deviation 47.7 H, RDW Coeff of Erica 13.5, Plt Count 199, MPV 8.8, Immature Gran % (Auto) 0.800, Neut % (Auto) 90.8 H, Lymph % (Auto) 2.6 L, [place] % (Auto) 5.6, Eos % (Auto) 0.0, Baso % (Auto) 0.2, Absolute Neuts (auto) 14.8 H, Absolute Lymphs (auto) 0.43 L, Nucleated RBC % 0 12/14/21 15:55: Sodium 135 L, Potassium 4.1, Chloride 101, Carbon Dioxide 30.0, Anion Gap 4 L, BUN 36 H, Creatinine 0.97, Estim Creat Clear Calc 62.53, Est GFR (MDRD) Af Amer 95, Est GFR (MDRD) Non-Af 79, BUN/Creatinine Ratio 37.1 H, Glucose 108 H, Calcium 9.2, Troponin I High Sens 522 H* 12/14/21 17:43: Troponin I High Sens 425 H* Micro: Microbiology 12/14/21 16:10 Nasal Secretion SARS-CoV-2 Antigen (Rapid) - Final Cardiology Labs/Tests 12/14/21 15:55: WBC 16.3 H, RBC 4.32 L, Hgb 13.3, Hct 41.1, MCV 95.1 H, MCH 30.8, MCHC 32.4, Plt Count 199, MPV 8.8, Immature Gran % (Auto) 0.800, Neut % (Auto) 90.8 H, Lymph % (Auto) 2.6 L, [place] % (Auto) 5.6, Eos % (Auto) 0.0, Baso % (Auto) 0.2, Absolute Neuts (auto) 14.8 H, Nucleated RBC % 0 12/14/21 15:55: Sodium 135 L, Potassium 4.1, Chloride 101, Carbon Dioxide 30.0, Anion Gap 4 L, BUN 36 H, Creatinine 0.97, Est GFR (MDRD) Af Amer 95, Est GFR (MDRD) Non-Af 79, BUN/Creatinine Ratio 37.1 H, Glucose 108 H, Calcium 9.2 Rhythm: EKG: ECHO: Stress Test: Cardiac Cath: PCI: CT Surgery: Holter monitor: EPS: PPM: CXR: Chest CT Scan: Radiography Diagnostic Testing: Radiology Impression Chest X-Ray 12/14/21 16:15 IMPRESSION: Lingular pneumonia. Electronically Signed: Sadi Joseph MD at 16:53 EST ,
[2021-12-14 19:08] LABS: D-Dimer Quantitative (DVT/PE) 1.54 FEU/ug/m (0.27-0.49)
[2021-12-14] MEDS: 0.9% Saline Lock 10 ML Syringe IV ×2 (19:51→20:40)
[2021-12-14] MEDS: LORazepam 0.5 MG Tablet PO (20:38)
[2021-12-14] MEDS: Enoxaparin 100 MG/ML Syringe 90 MG SC (20:39)
[2021-12-14] MEDS: Atorvastatin Calcium 40 MG Tablet PO (20:40)
[2021-12-14 22:47] LABS: Troponin-I HS 343 pg/mL (3.0-78.0)
[2021-12-15] VITALS (34 sets, daily range): BP systolic 89–142; BP diastolic 45–88; PULSE 53–92; RESP 13–21; TEMP 36.1–37.1; O2SAT 88–96
--- NOTE | 2021-12-15 00:32 | CT_ITS ---
STUDY: CTA CHEST REASON FOR EXAM: Male, 81 years old. sob and elevated d-dimer RADIATION DOSAGE (If Supplied By Facility): CTDIvol = ( 13.76 ) mGy, DLP = ( 502.86 ) mGycm TECHNIQUE: The examination was performed with the intravenous administration of IV 75mL [id number]-370. Post-processing of the angiographic images was performed, with multiplanar reformation and 3D reconstruction. Individualized dose optimization techniques were used for this CT. COMPARISON: None. FINDINGS: Normal enhancement of the main pulmonary artery and right and left pulmonary arteries. Normal enhancement of the bilateral peripheral pulmonary arteries. There is no demonstrated pulmonary embolism. Normal thoracic aorta and visualized great vessels. There is no demonstrated aortic dissection. Normal heart and pericardium. Moderate enlargement in mediastinal and left hilar lymph nodes the largest lymph node measures 2 x 1.8 cm most likely represent reactive lymphoid hyperplasia. Normal visualized trachea and bronchi. Ill-defined airspace opacity in lingula and left upper lobe consistent with pneumonia. Subsegmental atelectases in the right lung base. Normal pleura. Normal chest wall structures. Normal osseous structures. Multiple small stones are seen in the gallbladder. CT/CTA Chest W/WO Contrast IMPRESSION: Left upper lobe and lingular pneumonia. Mediastinal left hilar lymphadenopathy. Follow-up in 3 months is recommended to ensure resolution. There is no demonstrated pulmonary embolism or arterial dissection. Electronically Signed: Bonny Paige MD at 1:51 EST ,
--- NOTE | 2021-12-15 01:00 | NURSING ---
Pt assisted down to get chest CTA.
--- NOTE | 2021-12-15 05:43 | EKG12_ITS ---
Test Reason : CONVERT NSR Blood Pressure : / mmHG Vent. Rate : 060 BPM Atrial Rate : 060 BPM P-R Int : 166 ms QRS Dur : 084 ms QT Int : 440 ms P-R-T Axes : 230 161 157 degrees QTc Int : 440 ms Unusual P axis, possible ectopic atrial rhythm Biventricular hypertrophy Lateral infarct , age undetermined Abnormal ECG When compared with ECG of 14-DEC-2021 16:17, MANUAL COMPARISON REQUIRED, DATA IS UNCONFIRMED Confirmed by MICHAEL GRAHAM, VERONICA ([id number]), publication editor NURA PEARSON ([id number]) on 12/16/2021 11:41:36 AM Referred By: Confirmed By:VERONICA RODRIGUEZ MD
[2021-12-15] MEDS: 0.9% Saline Lock 10 ML Syringe IV ×2 (06:19→20:59)
[2021-12-15] MEDS: Levothyroxine 50 MCG Tablet PO (06:19)
[2021-12-15 07:23] LABS: Absolute Lymphocyte Count 0.32 X10^3/uL (0.83-4.51); Absolute Neutrophil Count 20.6 X10^3/uL (2.0-7.7); Basophil# 0.02 X10^3/uL; Basophil% 0.1 % (0-1); Hematocrit 40.6 % (40-54); Hemoglobin 13.5 g/dL (13.0-16.5); Lymphocyte # 0.32 X10^3/ul (0.83-4.51); Lymphocyte % 1.5 % (19-41); Mean Corp Hgb Conc 33.3 g/dL (32-36); Mean Corpuscular Hgb 31.7 pg (27.0-32.0); Mean Corpuscular Volume 95.3 fL (80-94); Mean Platelet Vol. 8.8 fl (6.2-12.0); Monocyte# 0.64 X10^3/uL; NRBC Flagged by Analyzer 0 % (0-5); Neutrophil # 20.57 X10^3/uL (2.7-7.7); Neutrophil % 94.9 % (47-70); POSITIVE DIFFERENTIAL YES; Platelet Count 215 K/mm3 (150-450); RBC Distribution Width CV 13.4 % (11.6-14.6); RBC Distribution Width SD 47.5 fl (35.1-43.9); Red Blood Count 4.26 M/mm3 (4.6-6.2); White Blood Count 21.7 K/mm3 (4.4-11.0)
[2021-12-15 08:07] LABS: Anion Gap 5 (5-15); BUN 37 mg/dL (7-18); Chloride 99 mmol/L (98-107); Creatinine, Serum 0.86 mg/dL (0.70-1.30); EST Glomerular Filtration Rate 90 mL/min (>60); Est Glom Filt Rate - Afr Amer 109 mL/min (>60); Estimated Creatinine Clearance 70.53 ml/min; Glucose 154 mg/dL (74-106); Sodium Level 134 mmol/L (136-145); Thyroid Stim Hormone (TSH) 0.52 uIU/mL (0.358-3.74)
[2021-12-15 08:17] LABS: Differential Indicated SCAN CRITERIA MET
[2021-12-15] MEDS: LORazepam 0.5 MG Tablet PO (08:28)
[2021-12-15] MEDS: Spironolactone 25 MG Tablet PO (08:28)
[2021-12-15] MEDS: Acetaminophen 325 MG Tablet 650 MG PO (08:28)
[2021-12-15] MEDS: Enoxaparin 100 MG/ML Syringe 90 MG SC ×2 (08:29→20:59)
[2021-12-15] MEDS: Aspirin 81 MG TAB.CHEW PO (08:29)
[2021-12-15 08:30] LABS: Differential Comment SCANNED
[2021-12-15] MEDS: Paroxetine 20 MG Tablet PO (08:30)
[2021-12-15] MEDS: amLODIPine 5 MG Tablet PO (08:30)
[2021-12-15] MEDS: Famotidine 20 MG Tablet PO (08:30)
[2021-12-15] MEDS: Clopidogrel Bisulfate 75 MG Tablet PO (08:30)
--- NOTE | 2021-12-15 09:59 | PCM.PN.HOSP ---
Subjective Subjective Follow-up on acute non-STEMI/chest pain: Patient was seen and examined. He complains of a left-sided pleuritic, point tenderness. Denied any dizziness or palpitation. He is hard of hearing. Objective Data Objective Data Vital Signs: Vital Signs Temp Pulse Resp BP Pulse Ox O2 Del Method O2 Flow Rate 97.4 F L 60 16 125/71 H 91 Nasal Cannula 2 12/15/21 05:00 12/15/21 08:15 12/15/21 07:00 12/15/21 07:00 12/15/21 08:32 12/15/21 08:32 12/15/21 08:32 Oxygen Flow Rate (L/min) 2 Oxygen Delivery Method Nasal Cannula Weight: 88.133 kg Body Mass Index (BMI) 27.1 Intake & Output: Intake and Output for Last 24 Hours 12/13/21 12/14/21 12/15/21 23:59 23:59 23:59 Intake Total 351.59 / 404.34 200.83 / 200.83 Output Total 350 / 350 Balance 351.59 / 304.34 -149.17 / -149.17 Lab / Micro Data Result Diagrams: 12/15/21 06:45 12/15/21 06:45 Labs: Laboratory Results - last 24 hr 12/14/21 15:55: WBC 16.3 H, RBC 4.32 L, Hgb 13.3, Hct 41.1, MCV 95.1 H, MCH 30.8, MCHC 32.4, RDW Std Deviation 47.7 H, RDW Coeff of Erica 13.5, Plt Count 199, MPV 8.8, Immature Gran % (Auto) 0.800, Neut % (Auto) 90.8 H, Lymph % (Auto) 2.6 L, [place] % (Auto) 5.6, Eos % (Auto) 0.0, Baso % (Auto) 0.2, Absolute Neuts (auto) 14.8 H, Absolute Lymphs (auto) 0.43 L, Nucleated RBC % 0 12/14/21 15:55: Sodium 135 L, Potassium 4.1, Chloride 101, Carbon Dioxide 30.0, Anion Gap 4 L, BUN 36 H, Creatinine 0.97, Estim Creat Clear Calc 62.53, Est GFR (MDRD) Af Amer 95, Est GFR (MDRD) Non-Af 79, BUN/Creatinine Ratio 37.1 H, Glucose 108 H, Calcium 9.2, Troponin I High Sens 522 H* 12/14/21 15:55: D-Dimer Quant (PE/DVT) 1.54 H* 12/14/21 17:43: Troponin I High Sens 425 H* 12/14/21 22:16: Troponin I High Sens 343 H* 12/15/21 06:45: WBC 21.7 H, RBC 4.26 L, Hgb 13.5, Hct 40.6, MCV 95.3 H, MCH 31.7, MCHC 33.3, RDW Std Deviation 47.5 H, RDW Coeff of Erica 13.4, Plt Count 215, MPV 8.8, Immature Gran % (Auto) 0.500, Neut % (Auto) 94.9 H, Lymph % (Auto) 1.5 L, [place] % (Auto) 3.0, Eos % (Auto) 0.0, Baso % (Auto) 0.1, Absolute Neuts (auto) 20.6 H, Absolute Lymphs (auto) 0.32 L, Nucleated RBC % 0, Differential Comment SCANNED 12/15/21 06:45: Sodium 134 L, Potassium 4.0, Chloride 99, Carbon Dioxide 30.0, Anion Gap 5, BUN 37 H, Creatinine 0.86, Estim Creat Clear Calc 70.53, Est GFR (MDRD) Af Amer 109, Est GFR (MDRD) Non-Af 90, BUN/Creatinine Ratio 43.0 H, Glucose 154 H, Calcium 9.0, TSH 0.52 Micro: Microbiology 12/15/21 02:45 Urine, Clean Catch Legionella Antigen - Final Legionella Antigen 12/15/21 02:45 Urine, Clean Catch Streptococcus pneumoniae Antigen (M - Final 12/14/21 16:10 Nasal Secretion SARS-CoV-2 Antigen (Rapid) - Final Radiography Diagnostic Testing: Radiology Impression Chest X-Ray 12/14/21 16:15 IMPRESSION: Lingular pneumonia. Electronically Signed: Sadi Joseph MD at 16:53 EST , Chest CTA 12/15/21 00:32 IMPRESSION: Left upper lobe and lingular pneumonia. Mediastinal left hilar lymphadenopathy. Follow-up in 3 months is recommended to ensure resolution. There is no demonstrated pulmonary embolism or arterial dissection. Electronically Signed: Bonny Paige MD at 1:51 EST , Physical Exam Narrative Physical exam: General: Alert, Oriented x3, Cooperative, on 2 L of oxygen, audible wheezing HEENT: Atraumatic Oral: Moist Mucosa Neck: Supple Lungs: Diminished to auscultation, scattered wheezes Cardiovascular: HS I+II, regular, no murmurs Abdomen: Bowel Sounds Present, Soft, Non Tender Extremities: No edema Skin: No rashes, No breakdown Neurological: Grossly intact Psych/Mental Status: Appropriate Assessment & Plan Assessment/Plan (1) Non-STEMI (non-ST elevated myocardial infarction): PLAN: Plan 1. Paroxysmal A. fib with RVR, now in NSR Will resume on atenolol, wean off Cardizem drip Continue with therapeutic Lovenox Cardiology following 2. Acute non-STEMI, likely type II CT of the chest negative for acute PE 2D echo shows EF of 55% Patient with underlying history of CAD status post CABG Continue on aspirin, Plavix, statin, Aldactone, therapeutic Lovenox 3. Acute hypoxia secondary to acute COPD exacerbation/pneumonia Admitting chest x-ray and CT of the chest shows pneumonia -left upper lobe and lingular Patient is currently on 2 L of oxygen, wean off for SPO2 more than 94% 4. Acute COPD exacerbation/pneumonia, process Continue ceftriaxone, azithromycin, IV Solu-Medrol 5. Hypertension, controlled continue amlodipine 6. Hypothyroidism, continue on synthroid 7. Depression, continue on Paxil 8. DVT PPx- On therapeutic Lovenox Charges/Coding Visit Charges Inpatient E&M: 08846 Subs Hosp L2
--- NOTE | 2021-12-15 11:00 | CASEMGMT ---
FREIDA CAIN Face to Face with patient for initial transition planning/care coordination assessment. FREIDA CAIN introduced self and role at [facility]. Patient lying in bed, alert and oriented, son at bedside. Patient willing to participate in assessment and is able to answer all questions appropriately. Care providers, pharmacy, and demographics verified. Patient wishes to discharge home, will monitor progress with therapy for possible HHC. Patient states he has no further needs or concerns at this time. CM to follow for discharge planning needs that may arise. PCP: Coral Specialists: Osvaldo weeder Preferred Pharmacy: [facility] Insurance: [employer] [facility] Prescription Benefit: yes Living Will/HPOA: none, patient wishes to complete, SW updated LNOK: sons Living Arrangements: Patient lives with son in a single story home with no steps to enter. Patient states he is independent at home. Transportation: self, sons DME/HHC: Patient states he has shower chair, raised toilet, cane, walker, grab bars, glucometer with supplies, and Cpap at home. Patient states his Cpap stopped working last night. FREIDA CAIN suggested patient or family bring in cpap from home and call DME agency for service. No previous HHC or SNF. Disposition Plan: Patient to discharge home with family support and follow-up plans in place. Will monitor for HHC and home oxygen at discharge. Lalita PIRES, RN, CM
--- NOTE | 2021-12-15 12:54 | CASEMGMT ---
According to the [facility] website, the following are in-network tertiary facilities: [facility], [facility], [facility], [facility], [facility], and . Adam GUAN CM
--- NOTE | 2021-12-15 14:38 | CASEMGMT ---
SW was informed patient wanted to complete advance directives. SW went to patient's room. Introduced self and role at [facility]. SW asked patient if he would like to complete Healthcare Power of [employer]. Patient did not understand what SW was saying. SW explained 4 times what a Healthcare Power of [employer]eng[employer] is and patient said, Sure. I can do that. SW asked patient who he would want to make medical decisions for him if he cannot. Patient said he would want his oldest son Bud Pedersen. SW asked patient if he has his address and phone number. Patient said he does not. SW told patient SW will need that information before SW can complete documents with him. Patient verbalized understanding. Juliet Hernandez STUDENT ACCOUNTS MANAGERWinston DUTTON
[2021-12-15] MEDS: Atenolol 50 MG Tablet PO (14:39)
[2021-12-15 14:40] LABS: BNP,B-Type NATRIURETIC PEPTIDE 163.1 pg/mL (0-100)
--- NOTE | 2021-12-15 17:38 | PN_ITS ---
Progress Note Patient seen and evaluated. Appears to be doing much better now. Physical Exam Const alert, oriented x3 and no apparent distress General Appearance: cooperative HEENT hearing grossly normal bilaterally Head and Scalp: atraumatic Eyes EOMs intact bilaterally Neck General: normal visual inspection Chest inspection of chest normal and palpation of chest normal Resp normal respiratory effort Auscultation: clear to auscultation bilaterally Cardio S1 normal heart sound and S2 normal heart sound Jugular Venous Distention: JVD Rhythm: regular rhythm GI normal to inspection, nondistended, normoactive bowel sounds Extremity normal capillary refill General Extremity: edema Peripheral Pulses: Yes pulses 2+ throughout and femoral pulses present Skin no rashes or lesions noted Neuro oriented x3 and CN's II-XII intact bilaterally Psych Appearance: grossly normal and appropriate Assessment & Plan Assessment/Plan (1) Non-STEMI (non-ST elevated myocardial infarction): PLAN: He does presents with elevated cardiac enzymes with shortness of breath. The etiology of the above is not entirely clear whether this is a type I or type II event. I would recommend that we continue to monitor his cardiac enzymes. He will be started on anticoagulation nonetheless. He is on aspirin as well as clopidogrel. * Will consider his high intensity statin * Will continue the beta-karis for now. * Will recommend cardiac catheterization in a.m. Risk benefits alternatives explained to patient who understands and agrees to proceed. (2) Paroxysmal atrial fibrillation with RVR: PLAN: He does have a history of atrial fibrillation which appears to be new onset. I will review the records further to see whether he has had any previous episodes of the above. His echocardiogram demonstrated preserved left ventricular systolic function. He has converted back to sinus rhythm. * (3) HTN (hypertension): PLAN: He does have a history of hypertension and will continue on his amlodipine and his beta-karis. Thank you for allowing me to participate in the care of your patient. Please don't hesitate to call if any issues arise.
[2021-12-15] MEDS: Atorvastatin Calcium 40 MG Tablet PO (20:59)
[2021-12-16] VITALS (20 sets, daily range): BP systolic 112–142; BP diastolic 70–94; PULSE 70–93; RESP 16–22; TEMP 36.3–36.7; O2SAT 91–96
--- NOTE | 2021-12-16 05:55 | EKG12_ITS ---
Test Reason : AM EKG Blood Pressure : / mmHG Vent. Rate : 085 BPM Atrial Rate : 000 BPM P-R Int : 000 ms QRS Dur : 092 ms QT Int : 388 ms P-R-T Axes : 000 046 044 degrees QTc Int : 461 ms Atrial fibrillation with premature ventricular or aberrantly conducted complexes Minimal voltage criteria for LVH, may be normal variant ( Sokolow-Chou ) Abnormal ECG When compared with ECG of 15-DEC-2021 05:46, MANUAL COMPARISON REQUIRED, DATA IS UNCONFIRMED Confirmed by MICHAEL GRAHAM, VERONICA ([id number]), editor magazine NURA PEARSON ([id number]) on 12/16/2021 1:21:25 PM Referred By: Confirmed By:VERONICA RODRIGUEZ MD
[2021-12-16] MEDS: Clopidogrel Bisulfate 75 MG Tablet PO (06:36)
[2021-12-16] MEDS: amLODIPine 5 MG Tablet PO (06:36)
[2021-12-16] MEDS: Levothyroxine 50 MCG Tablet PO (06:36)
[2021-12-16] MEDS: 0.9% Saline Lock 10 ML Syringe IV ×2 (06:36→21:06)
[2021-12-16] MEDS: Atenolol 50 MG Tablet PO (06:36)
[2021-12-16] MEDS: Aspirin 81 MG TAB.CHEW PO (06:36)
--- NOTE | 2021-12-16 12:54 | PN.CARD_ITS ---
Subjective Subjective Patient seen and evaluated. Underwent cardiac catheterization today. Appears to be doing well. Objective Data Vital Signs: Vital Signs Temp Pulse Resp BP Pulse Ox O2 Del Method O2 Flow Rate 97.4 F L 77 18 112/77 94 Nasal Cannula 2 12/16/21 06:30 12/16/21 12:00 12/16/21 06:30 12/16/21 06:30 12/16/21 06:30 12/16/21 12:10 12/16/21 12:10 Oxygen Flow Rate (L/min) 2 Oxygen Delivery Method Nasal Cannula Weight: 194 lb 4.8 oz Body Mass Index (BMI) 27.1 Intake & Output: Intake and Output for Last 24 Hours 12/14/21 12/15/21 12/16/21 23:59 23:59 23:59 Intake Total 351.59 / 404.34 534.25 / 534.25 305 / 305 Output Total 350 / 625 475 / 475 Balance 351.59 / 304.34 184.25 / -90.75 -170 / -170 Lab / Micro Data Result Diagrams: 12/15/21 06:45 12/15/21 06:45 Labs: Laboratory Results - last 24 hr 12/15/21 06:45: B-Natriuretic Peptide 163.1 H Cardiology Labs/Tests 12/15/21 06:45: B-Natriuretic Peptide 163.1 H Rhythm: EKG: ECHO: Stress Test: Cardiac Cath: PCI: CT Surgery: Holter monitor: EPS: PPM: CXR: Chest CT Scan: Physical Exam Const alert, oriented x3 and no apparent distress General Appearance: cooperative HEENT hearing grossly normal bilaterally Head and Scalp: atraumatic Eyes EOMs intact bilaterally Neck General: normal visual inspection Chest inspection of chest normal and palpation of chest normal Resp normal respiratory effort Auscultation: clear to auscultation bilaterally Cardio S1 normal heart sound and S2 normal heart sound Jugular Venous Distention: JVD Rhythm: abnormal rhythm irregularly irregular GI normal to inspection, nondistended, normoactive bowel sounds Extremity normal capillary refill General Extremity: edema Peripheral Pulses: Yes pulses 2+ throughout and femoral pulses present Skin no rashes or lesions noted Neuro oriented x3 and CN's II-XII intact bilaterally Psych Appearance: grossly normal and appropriate Assessment & Plan Assessment/Plan (1) Non-STEMI (non-ST elevated myocardial infarction): PLAN: He does presents with elevated cardiac enzymes with shortness of breath. The etiology of the above is not entirely clear whether this is a type I or type II event. I would recommend that we continue to monitor his cardiac enzymes. He will be started on anticoagulation nonetheless. He is on aspirin as well as clopidogrel. * Will consider his high intensity statin * Will continue the beta-karis for now. 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 Nondominant right coronary artery totally occluded. Totally occluded left anterior descending artery. Left circumflex artery with severe disease. Preserved left ventricular systolic function. Based on the above angio graphic findings will recommend PCI to the distal left main and proximal left circumflex (2) Paroxysmal atrial fibrillation with RVR: PLAN: He does have a history of atrial fibrillation which appears to be new onset. I will review the records further to see whether he has had any previous episodes of the above. His echocardiogram demonstrated preserved left ventricular systolic function. It appears he is back in atrial fibrillation at this time (3) HTN (hypertension): PLAN: He does have a history of hypertension and will continue on his amlodipine and his beta-karis. Thank you for allowing me to participate in the care of your patient. Please don't hesitate to call if any issues arise.
--- NOTE | 2021-12-16 13:04 | CL.D_ITS ---
Patient Name: ARTURO LUNA Study Date: 12/16/2021 Performing: Dallas Muller MD Ht: 71 inches 180.34 cm : 1940 Wt: 194.29 lbs 88.13 kg Age: 81 Gender: male BSA: 2.08 PROCEDURE(S) PERFORMED DC04-(80619)LHC/COR/CABG IC12-(79274/C9600)KIRK W/WO PTCA, SINGLE CORONARY ARTERY CLINICAL PROFILE AND INDICATIONS Indications: Suspected CAD Heart Failure: NYHA Class: 2, Newly Diagnosed: Yes, Heart Failure Type: Diastolic Stress/Imaging Stress/Image Study Performed: No CONCLUSIONS Coronary artery disease with distal left main and ostial circumflex artery stenosis and diffuse disease noted of the circumflex artery, with patent saphenous vein graft to the circumflex artery and patent ECHEVARRIA to the LAD. RECOMMENDATIONS Referred for immediate PCI DESCRIPTION OF PROCEDURE The patient arrived to the procedure lab. The risks and benefits of the procedure as well as a full description of our services here and current unavailability of surgical backup were fully explained to the patient and/or their significant other prior to the catheterization. The Timeout was completed, verifying the correct patient and procedure. The patient's procedural site was prepped and draped in the usual fashion. Local anesthetic was given subcutaneously to right groin region with Lidocaine 2%. Using a modified Seldinger technique, Left Coronary Artery selective angiography was performed in multiple views using a 5 Fr. JL4 catheter. Right Coronary Artery selective angiography was then performed in multiple views using a 5 Fr. 3DRC (Luis) catheter. Saphenous Vein graft to the OM 1 selective angiography was performed in multiple views using a 5 Fr. 3DRC (Luis) catheter. Left internal mammary artery graft to the LAD selective angiography was performed in multiple views using a 5 Fr. 3DRC (Luis) catheter. CORONARY ANGIOGRAPHY DOMINANCE: Left Dominant LEFT HEART ASSESSMENT Left Ventricular Ejection Fraction: by Echo 55 % Normal LV wall motion Normal Left Ventricular systolic function LEFT MAIN: Distal 90% stenosis LEFT ANTERIOR DESCENDING ARTERY: OSTIAL LAD: is occluded CIRCUMFLEX ARTERY: Dominant vessel with ostial 90% stenosis and then giving of a first obtuse marginal branch which is bypassed, a second obtuse marginal branch with moderately severe disease and a posterolateral and posterior descending artery with diffuse disease noted. RIGHT CORONARY ARTERY: Nondominant vessel and occluded GRAFTS: Sequential graft to the First obtuse marginal branch which is patent with mild disease and mild to distal vessel disease ECHEVARRIA graft to the Mid LAD is patent COMPLICATIONS PROCEDURE MEDICATIONS Versed 1 mg IV Fentanyl 25 mcg IV Oxygen: 2 L/min via nasal cannula Heparin 7000 unit(s) IV 12/16/2021 13:00:37 SUMMARY OF HEMODYNAMIC DATA Time AIR REST AO 120/79 (98) SA 12:30:50 ECG 13:00:20 AIR REST 13:00:36 Signed By Dallas Muller MD On 12/16/2021 13:04:07 Dallas Muller MD
--- NOTE | 2021-12-16 13:45 | EKG12_ITS ---
Test Reason : AM EKG Blood Pressure : / mmHG Vent. Rate : 082 BPM Atrial Rate : 078 BPM P-R Int : 000 ms QRS Dur : 100 ms QT Int : 390 ms P-R-T Axes : 000 015 053 degrees QTc Int : 455 ms Atrial fibrillation with premature ventricular or aberrantly conducted complexes Voltage criteria for left ventricular hypertrophy Abnormal ECG Confirmed by ALMA GRAHAM, MARIJA ([id number]), features editor NURA PEARSON ([id number]) on 12/23/2021 7:59:48 AM Referred By: ARNULFO Confirmed By:MARIJA MARQUEZ MD
--- NOTE | 2021-12-16 14:06 | CL.I_ITS ---
Patient Name: ARTURO LUNA Study Date: 12/16/2021 Performing: Tiago Burden MD Ht: 71 inches 180.34 cm : 1940 Wt: 194.29 lbs 88.13 kg Age: 81 Gender: male BSA: 2.08 PROCEDURE(S) PERFORMED IC12-(30589/C9600)KIRK W/WO PTCA, SINGLE CORONARY ARTERY CLINICAL PROFILE AND CO-MORBIDITIES Indications: Suspected CAD Heart Failure: NYHA Class: 2, Newly Diagnosed: Yes, Heart Failure Type: Diastolic Stress/Imaging Stress/Image Study Performed: No CONCLUSIONS Successful KIRK to distal LM RECOMMENDATIONS DESCRIPTION OF PROCEDURE The patient arrived to the procedure lab. The risks and benefits of the procedure as well as a full description of our services here and current unavailability of surgical backup were fully explained to the patient and/or their significant other prior to the catheterization. The Timeout was completed, verifying the correct patient and procedure. The patient's procedural site was prepped and draped in the usual fashion. Local anesthetic was given subcutaneously to right groin region with Lidocaine 2% Using a modified Seldinger technique, Left Coronary Artery selective angiography was performed in multiple views using a 5 Fr. JL4 catheter. Right Coronary Artery selective angiography was then performed in multiple views using a 5 Fr. 3DRC (Luis) catheter. Saphenous Vein graft to the OM 1 selective angiography was performed in multiple views using a 5 Fr. 3DRC (Luis) catheter. Left internal mammary artery graft to the LAD selective angiography was performed in multiple views using a 5 Fr. 3DRC (Luis) catheter. Arterial sheath was exchanged for a 6 Fr Sheath. XB 3.5 Guide catheter was inserted and engaged into the LCA. BMW Guide wire was advanced to the Circumflex. 3.0 x 8 Emerge Balloon catheter was inserted. Balloon catheter was advanced across lesion in the LM distal PTCA balloon inflated at 8 atms for 17 secs. PTCA balloon inflated at 8 atms for 14 secs. 3.5 x 8 Synergy Drug Eluting stent was inserted. Drug Eluting stent was advanced across the lesion in the LM distal Angiogram performed pre stent deployment. Angiogram performed post stent deployment. 3.5 x 8 NC Euphora Balloon catheter was inserted post stent. Angiogram performed post balloon dilatation. Contrast was injected through the sheath and the Right Iliac and Femoral artery were assessed for possible closure device. INTERVENTION INFORMATION LESION SITE: Left Main (Distal) Lesion Complexity: High/C, chronic total occlusion: No, lesion at bifurcation: No, thrombus present: No, lesion length: 8 mm, culprit lesion: Yes Pre Stenosis: 95 % Pre intervention NAVEEN flow: 3 PROCEDURE: Drug Eluting Stent with pre and post dilatation The stent was deployed into the LCx covering the dLM and oLCx lesions Post Stenosis: 0 % Post intervention NAVEEN flow: 3 Lesion Devices: Cordis 6 Fr XB3.5 100cm Guide Catheter Grey .014 BMW [place] Straight 190cm Chadwick Sci EMERGE MR 3.00x08 BALLOON Chadwick Sci Synergy MR KIRK 3.50x08 Medtronic NC EUPHORA RX 3.5x08 BALLOON COMPLICATIONS No Complications PROCEDURE MEDICATIONS Versed 1 mg IV Fentanyl 25 mcg IV Oxygen: 2 L/min via nasal cannula Heparin 7000 unit(s) IV 12/16/2021 13:00:37 SUMMARY OF HEMODYNAMIC DATA Time AIR REST AO 120/79 (98) SA 12:30:50 ECG 13:00:20 13:52:18 Signed By Tiago Burden MD On 12/16/2021 14:05:50 Tiago Burden MD
--- NOTE | 2021-12-16 14:26 | PN.HOSP_ITS ---
Subjective Subjective Follow-up on Acute NSTEMI/Chest pain/COPD exacerbation: Patient was seen and examined. He had a cardiac catherization done today that showed a distal left main(90%) and ostial circumflex artery stenosis and diffuse disease of the left circumflex artery. He had KIRK to distal left main. He denied any chest pain, dizziness at the time of being seen. Objective Data Objective Data Vital Signs: Vital Signs Temp Pulse Resp BP Pulse Ox O2 Del Method O2 Flow Rate 98.1 F 72 16 137/90 H 96 Nasal Cannula 2 12/16/21 14:00 12/16/21 14:15 12/16/21 14:15 12/16/21 14:15 12/16/21 14:15 12/16/21 14:15 12/16/21 14:15 Oxygen Flow Rate (L/min) 2 Oxygen Delivery Method Nasal Cannula Weight: 88.133 kg Body Mass Index (BMI) 27.1 Intake & Output: Intake and Output for Last 24 Hours 12/14/21 12/15/21 12/16/21 23:59 23:59 23:59 Intake Total 351.59 / 404.34 534.25 / 534.25 305 / 305 Output Total 350 / 625 475 / 475 Balance 351.59 / 304.34 184.25 / -90.75 -170 / -170 Lab / Micro Data Result Diagrams: 12/15/21 06:45 12/15/21 06:45 Labs: Laboratory Results - last 24 hr 12/15/21 06:45: B-Natriuretic Peptide 163.1 H Micro: Microbiology 12/15/21 02:45 Urine, Clean Catch Legionella Antigen - Final Legionella Antigen 12/15/21 02:45 Urine, Clean Catch Streptococcus pneumoniae Antigen (M - Final 12/14/21 16:10 Nasal Secretion SARS-CoV-2 Antigen (Rapid) - Final Physical Exam Narrative Physical exam: General: Alert, Oriented x3, Cooperative, on 2 L of oxygen HEENT: Atraumatic Oral: Moist Mucosa Neck: Supple Lungs: Diminished to auscultation, scattered wheezes Cardiovascular: HS I+II, regular, no murmurs Abdomen: Bowel Sounds Present, Soft, Non Tender Extremities: No edema Skin: No rashes, No breakdown Neurological: Grossly intact Psych/Mental Status: Appropriate Assessment & Plan Assessment/Plan (1) Non-STEMI (non-ST elevated myocardial infarction): PLAN: Plan 1. Acute NSTEMI(type 1) s/p cardiac cath with findings of severe disease to left main and LCA Status post KIRK to Left main 2d-ECHO shows EF 55% Continue on aspirin, Plavix, atenolol, statin, spironolactone 2. Paroxysmal A. fib with RVR, back in A. fib Continue atenolol, off Lovenox for cardiac cath Cardiology following 3. Acute hypoxia secondary to acute COPD exacerbation/pneumonia Admitting chest x-ray and CT of the chest shows pneumonia -left upper lobe and lingular Remains on 2 L of oxygen, wean off for SPO2 more than 94% 4. Acute COPD exacerbation/pneumonia, improving Continue ceftriaxone, azithromycin, IV Solu-Medrol 5. Hypertension, controlled continue amlodipine 6. Hypothyroidism, continue on synthroid 7. Depression, continue on Paxil 8. DVT PPx- Lovenox Charges/Coding Visit Charges Inpatient E&M: 55607 [facility] Hosp L3
[2021-12-16] MEDS: Famotidine 20 MG Tablet PO (15:21)
[2021-12-16] MEDS: Spironolactone 25 MG Tablet PO (15:22)
[2021-12-16] MEDS: Paroxetine 20 MG Tablet PO (15:22)
[2021-12-16] MEDS: Atorvastatin Calcium 40 MG Tablet PO ×2 (21:06)
--- NOTE | 2021-12-16 21:19 | NURSING ---
pt out of bed and walked around in the hallway. Rt groin site dry and intact
[2021-12-17] VITALS (10 sets, daily range): BP systolic 119–142; BP diastolic 84–98; PULSE 82–105; RESP 17–18; TEMP 35.6–36.7; O2SAT 93–95
[2021-12-17] MEDS: 0.9% Saline Lock 10 ML Syringe IV ×3 (05:17→21:05)
[2021-12-17] MEDS: Levothyroxine 50 MCG Tablet PO (05:17)
[2021-12-17 05:23] LABS: Hematocrit 39.9 % (40-54); Hemoglobin 13.3 g/dL (13.0-16.5); Mean Corp Hgb Conc 33.3 g/dL (32-36); Mean Corpuscular Hgb 31.2 pg (27.0-32.0); Mean Corpuscular Volume 93.7 fL (80-94); Mean Platelet Vol. 8.8 fl (6.2-12.0); Platelet Count 223 K/mm3 (150-450); RBC Distribution Width CV 13.2 % (11.6-14.6); Red Blood Count 4.26 M/mm3 (4.6-6.2); White Blood Count 17.2 K/mm3 (4.4-11.0)
[2021-12-17 05:52] LABS: ALB/GLOB Ratio 0.6 RATIO (0.9-2.4); AST(SGOT) 254 U/L (15-37); Alanine Aminotransfer ALT/SGPT 280 U/L (16-61); Albumin, Serum 2.4 g/dL (3.2-5.0); Alkaline Phosphatase 173 U/L (45-117); Anion Gap 5 (5-15); BUN 40 mg/dL (7-18); Calcium,Total 8.6 mg/dL (8.5-10.1); Chloride 101 mmol/L (98-107); Creatinine, Serum 0.68 mg/dL (0.70-1.30); EST Glomerular Filtration Rate 119 mL/min (>60); Est Glom Filt Rate - Afr Amer 144 mL/min (>60); Estimated Creatinine Clearance 60.66 ml/min; Globulin 4.1 g/dL (2.2-4.2); Glucose 131 mg/dL (74-106); Protein, Total 6.5 g/dL (6.4-8.2); Sodium Level 136 mmol/L (136-145)
--- NOTE | 2021-12-17 08:39 | US_ITS ---
STUDY: ABDOMINAL ULTRASOUND - RIGHT UPPER QUADRANT REASON FOR VISIT: Male, 81 years old Elevated LFTs TECHNIQUE: Ultrasound evaluation of the right upper quadrant was performed with real-time and static pedraza-scale imaging. TECHNICAL QUALITY: Limited. Examination limited by bowel gas. COMPARISON: None. FINDINGS: Liver: The liver measures 15.8 cm. There is normal echogenicity of the liver. The bile ducts are within normal limits. There is hepatic color flow. The direction of portal flow is hepatopetal. There is no demonstrated mass lesion. Gallbladder: Normal distended gallbladder. The gallbladder wall measures 2 mm. There is a negative sonographic Zuniga''s sign. There is no pericholecystic fluid. There are multiple echogenic structures within the gallbladder, consistent with multiple gallstones. Common Bile Duct (C.B.D.): The common bile duct measures 2.9 mm. Pancreas: There is nonvisualization of the pancreas due to overlying bowel gas. Right Kidney: Normal size of the right kidney. The right kidney measures 12 cm x 5.7 cm x 6.4 cm. Normal renal cortex. The right cortex measures 1.4 cm. There is no demonstrated renal mass or cyst. There is no right hydronephrosis. US/Liver IMPRESSION: Multiple gallstones. Electronically Signed: Domingo Little MD at 11:[address] [facility] ,
--- NOTE | 2021-12-17 09:15 | PN.CARD_ITS ---
Subjective Subjective Patient's seen and evaluated. Appears to be doing well this morning. Mildly confused though. Objective Data Vital Signs: Vital Signs Temp Pulse Resp BP Pulse Ox O2 Del Method O2 Flow Rate 97.5 F L 87 17 132/85 H 93 Nasal Cannula 2 12/17/21 04:21 12/17/21 07:00 12/17/21 04:21 12/17/21 04:21 12/17/21 08:20 12/17/21 08:20 12/17/21 08:20 Oxygen Flow Rate (L/min) 2 Oxygen Delivery Method Nasal Cannula Weight: 194 lb 4.8 oz Body Mass Index (BMI) 27.1 Intake & Output: Intake and Output for Last 24 Hours 12/15/21 12/16/21 12/17/21 23:59 23:59 23:59 Intake Total 534.25 / 534.25 665 / 665 240 / 240 Output Total 350 / 625 925 / 925 500 / 500 Balance 184.25 / -90.75 -260 / -260 -260 / -260 Lab / Micro Data Result Diagrams: 12/17/21 05:11 12/17/21 05:11 Labs: Laboratory Results - last 24 hr 12/17/21 05:11: WBC 17.2 H, RBC 4.26 L, Hgb 13.3, Hct 39.9 L, MCV 93.7, MCH 31.2, MCHC 33.3, RDW Std Deviation 45.0 H, RDW Coeff of Erica 13.2, Plt Count 223, MPV 8.8 12/17/21 05:11: Sodium 136, Potassium 4.0, Chloride 101, Carbon Dioxide 30.0, Anion Gap 5, BUN 40 H, Creatinine 0.68 L, Estim Creat Clear Calc 60.66, Est GFR (MDRD) Af Amer 144, Est GFR (MDRD) Non-Af 119, BUN/Creatinine Ratio 59.0 H, Glucose 131 H, Calcium 8.6, Total Bilirubin 0.60, AST 254 H, ALT 280 H, Alkaline Phosphatase 173 H, Total Protein 6.5, Albumin 2.4 L, Globulin 4.1, Albumin/Globulin Ratio 0.6 L Cardiology Labs/Tests 12/17/21 05:11: WBC 17.2 H, RBC 4.26 L, Hgb 13.3, Hct 39.9 L, MCV 93.7, MCH 31.2, MCHC 33.3, Plt Count 223, MPV 8.8 12/17/21 05:11: Sodium 136, Potassium 4.0, Chloride 101, Carbon Dioxide 30.0, Anion Gap 5, BUN 40 H, Creatinine 0.68 L, Est GFR (MDRD) Af Amer 144, Est GFR (MDRD) Non-Af 119, BUN/Creatinine Ratio 59.0 H, Glucose 131 H, Calcium 8.6, Total Bilirubin 0.60 Rhythm: EKG: ECHO: Stress Test: Cardiac Cath: PCI: CT Surgery: Holter monitor: EPS: PPM: CXR: Chest CT Scan: Physical Exam Const alert, oriented x3 and no apparent distress General Appearance: cooperative HEENT hearing grossly normal bilaterally Head and Scalp: atraumatic Eyes EOMs intact bilaterally Neck General: normal visual inspection Chest inspection of chest normal and palpation of chest normal Resp normal respiratory effort Auscultation: clear to auscultation bilaterally Cardio S1 normal heart sound and S2 normal heart sound Jugular Venous Distention: JVD Rhythm: abnormal rhythm irregularly irregular GI normal to inspection, nondistended, normoactive bowel sounds Extremity normal capillary refill General Extremity: edema Peripheral Pulses: Yes pulses 2+ throughout and femoral pulses present Skin no rashes or lesions noted Neuro oriented x3 and CN's II-XII intact bilaterally Psych Appearance: grossly normal and appropriate Assessment & Plan Assessment/Plan (1) Non-STEMI (non-ST elevated myocardial infarction): PLAN: He does presents with elevated cardiac enzymes with shortness of breath. The etiology of the above is not entirely clear whether this is a type I or type II event. I would recommend that we continue to monitor his cardiac enzymes. He will be started on anticoagulation nonetheless. He is on aspirin as well as clopidogrel. * Will consider his high intensity statin * Will continue the beta-karis for now. 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 Nondominant right coronary artery totally occluded. Totally occluded left anterior descending artery. Left circumflex artery with severe disease. Preserved left ventricular systolic function. Based on the above angio graphic findings underwent PCI to the distal left main and proximal left circumflex he did well overnight and the plan is to discharge him for outpatient follow-up (2) Paroxysmal atrial fibrillation with RVR: PLAN: He does have a history of atrial fibrillation which appears to be new onset. I will review the records further to see whether he has had any previous episodes of the above. His echocardiogram demonstrated preserved left ventricular systolic function. It appears he is back in atrial fibrillation at this time He will need to be on anticoagulation in addition to aspirin and clopidogrel. He will continue aspirin for a month and then that can be discontinued. He may also be a candidate for the change A. fib trial. We will follow-up on this in the office. (3) HTN (hypertension): PLAN: He does have a history of hypertension and will continue on his amlodipine and his beta-karis. Thank you for allowing me to participate in the care of your patient. Please don't hesitate to call if any issues arise.
[2021-12-17] MEDS: amLODIPine 5 MG Tablet PO (09:24)
[2021-12-17] MEDS: Atenolol 50 MG Tablet PO (09:24)
[2021-12-17] MEDS: Clopidogrel Bisulfate 75 MG Tablet PO (09:24)
[2021-12-17] MEDS: Aspirin 81 MG TAB.CHEW PO (09:24)
[2021-12-17] MEDS: Famotidine 20 MG Tablet PO (09:29)
[2021-12-17] MEDS: Spironolactone 25 MG Tablet PO (09:29)
--- NOTE | 2021-12-17 10:00 | EKG12_ITS ---
Test Reason : morning ekg Blood Pressure : / mmHG Vent. Rate : 087 BPM Atrial Rate : 000 BPM P-R Int : 000 ms QRS Dur : 086 ms QT Int : 368 ms P-R-T Axes : 000 009 041 degrees QTc Int : 442 ms Atrial fibrillation Abnormal ECG When compared with ECG of 16-DEC-2021 14:23, MANUAL COMPARISON REQUIRED, DATA IS UNCONFIRMED Confirmed by MICHAEL GRAHAM, VERONICA ([id number]), food editor NURA PEARSON ([id number]) on 12/25/2021 7:19:27 AM Referred By: Confirmed By:VERONICA RODRIGUEZ MD
[2021-12-17] MEDS: APIXABAN 5 MG TABLET PO ×2 (10:11→21:05)
[2021-12-17] MEDS: Paroxetine 20 MG Tablet PO (10:11)
--- NOTE | 2021-12-17 10:31 | CRPHASE1 ---
Patient Communication PHII Cardiac Rehab Discussed with Patient:: Yes Guide to Cardiac Rehab Given to Patient:: Yes Cardiac Rehab Facility Choice List Given to Patient:: Yes Choice Program [facility] CR PHII:: Communication Given to CR, Refer to [facility] Receiving Lead:: Patricia Burden Refer Phase II Cardiac Rehab:: Yes Cardiac Rehabilitation Info Cardiac Rehabilitation Program Information: Cardiac Rehabilitation is important for patients like you who are recovering from a heart problem. Cardiac rehabilitation programs are recognized as integral to the continued care of the patient with coronary heart disease. The cardiac rehabilitation program is designed to optimize a patient's physical, psychological, and social functioning. Health critical care educator work in cardiac rehabilitation programs and assist you with getting the treatments you need to get stronger and healthier - like exercise, healthy eating habits, and medications. Cardiac rehabilitation has been show to help people with heart problems live longer and have better life enjoyment than people who do not go to cardiac rehabilitation. Please contact the Cardiac Rehabilitation Program at [facility] at in two weeks if you have not heard from them.
--- NOTE | 2021-12-17 10:31 | CRPH1.INSTRU ---
General Education CAD and cardiac anatomy and function:: Patient communicates acknowledgment Explanation of diagnoses and procedures:: Patient communicates acknowledgment Sign/Symptoms of SC:: Patient communicates acknowledgment Antiplatelet therapy: Patient communicates acknowledgment Proper use of NTG-SL: Patient communicates acknowledgment Emergency procedures and activation of EMS: Patient communicates acknowledgment Compliance of all prescribed medications: Patient communicates acknowledgment - H/O stroke, vocal cord paralysis,. previous open heart, COPD Stage II, Central Sleep Apnea Smoking Recommendations Include:: Previous smoker; encourage continued cessation Nicotine/Smoking Response Code:: Patient communicates acknowledgment Dyslipidemia Patient Dyslipidemia Risk Factors Are:: Total Cholesterol, Triglycerides, HDL, LDL Recommendations Include:: Reviewed NCEP/ATP guidelines, Therapeutic Lifestyle Change dietary guidelines Dyslipidemia Response Code:: Patient communicates acknowledgment Hypertension Recommendations Include:: Maintain BP <130/85, DASH dietary guidelines Hypertension:: Patient communicates acknowledgment Heart Disease Patient Heart Disease Risk Factors Are:: Family history of heart disease < 65 years old, Previous cardiac event Recommendations Include:: Educated family members of their risk, Educated family members of importance of prevention of heart disease Heart Disease Response Code:: Patient communicates acknowledgment Sedentary Patient Sedentary Risk Factors Are:: Lack of regular exercise Recommendations Include:: Benefits of regular exercise, Discussed home walking program Sedentary Response Code:: Patient communicates acknowledgment
--- NOTE | 2021-12-17 14:53 | CASEMGMT ---
Family asking about pt's cpap that he does not use/does not work and if hospitalist can write for new one. Family updated to call DME company listed on machine about it being broken and if pt wants a completely different machine then he will have to f/u with Dr. Riley(who he already sees) for new order and/or new sleep study, voice understanding. Adam GUAN CM
--- NOTE | 2021-12-17 17:27 | PCM.PN.HOSP ---
Subjective Subjective Follow-up on acute non-STEMI/acute COPD exacerbation: Patient was seen and examined. He still has significant wheezes on exam and is on 2 L of oxygen. He denied any chest pain. Objective Data Objective Data Vital Signs: Vital Signs Temp Pulse Resp BP Pulse Ox O2 Del Method O2 Flow Rate 97.5 F L 83 18 140/86 H 94 Nasal Cannula 2 12/17/21 15:20 12/17/21 15:20 12/17/21 15:20 12/17/21 15:20 12/17/21 15:20 12/17/21 15:20 12/17/21 15:20 Oxygen Flow Rate (L/min) 2 Oxygen Delivery Method Nasal Cannula Weight: 88.133 kg Body Mass Index (BMI) 27.1 Intake & Output: Intake and Output for Last 24 Hours 12/15/21 12/16/21 12/17/21 23:59 23:59 23:59 Intake Total 534.25 / 534.25 665 / 665 575 / 575 Output Total 350 / 625 925 / 925 500 / 500 Balance 184.25 / -90.75 -260 / -260 75 / 75 Lab / Micro Data Result Diagrams: 12/17/21 05:11 12/17/21 05:11 Labs: Laboratory Results - last 24 hr 12/17/21 05:11: WBC 17.2 H, RBC 4.26 L, Hgb 13.3, Hct 39.9 L, MCV 93.7, MCH 31.2, MCHC 33.3, RDW Std Deviation 45.0 H, RDW Coeff of Erica 13.2, Plt Count 223, MPV 8.8 12/17/21 05:11: Sodium 136, Potassium 4.0, Chloride 101, Carbon Dioxide 30.0, Anion Gap 5, BUN 40 H, Creatinine 0.68 L, Estim Creat Clear Calc 60.66, Est GFR (MDRD) Af Amer 144, Est GFR (MDRD) Non-Af 119, BUN/Creatinine Ratio 59.0 H, Glucose 131 H, Calcium 8.6, Total Bilirubin 0.60, AST 254 H, ALT 280 H, Alkaline Phosphatase 173 H, Total Protein 6.5, Albumin 2.4 L, Globulin 4.1, Albumin/Globulin Ratio 0.6 L Micro: Microbiology 12/15/21 02:45 Urine, Clean Catch Legionella Antigen - Final Legionella Antigen 12/15/21 02:45 Urine, Clean Catch Streptococcus pneumoniae Antigen (M - Final 12/14/21 16:10 Nasal Secretion SARS-CoV-2 Antigen (Rapid) - Final Radiography Diagnostic Testing: Radiology Impression Liver Ultrasound 12/17/21 08:39 IMPRESSION: Multiple gallstones. Electronically Signed: Domingo Little MD at 11:08 EST , Physical Exam Narrative Physical exam: General: Alert, Oriented x3, Cooperative, on 2 L of oxygen HEENT: Atraumatic Oral: Moist Mucosa Neck: Supple Lungs: Diminished to auscultation, scattered wheezes Cardiovascular: HS I+II, regular, no murmurs Abdomen: Bowel Sounds Present, Soft, Non Tender Extremities: No edema Skin: No rashes, No breakdown Neurological: Grossly intact Psych/Mental Status: Appropriate Assessment & Plan Assessment/Plan (1) Non-STEMI (non-ST elevated myocardial infarction): PLAN: Plan 1. Acute NSTEMI(type 1) s/p cardiac cath with findings of severe disease to left main and LCA Status post KIRK to Left main 2d-ECHO shows EF 55% Continue on aspirin, Plavix, atenolol, statin, spironolactone 2. Paroxysmal A. fib with RVR, back in A. fib Continue atenolol, apixaban Cardiology following 3. Acute hypoxia secondary to acute COPD exacerbation/pneumonia Admitting chest x-ray and CT of the chest shows pneumonia -left upper lobe and lingular Remains on 2 L of oxygen, wean off for SPO2 more than 94% 4. Acute COPD exacerbation/pneumonia, improving Continue ceftriaxone, azithromycin, IV Solu-Medrol 5. Elevated LFTs, liver ultrasound showed multiple gallstones, will trend 6. Hypertension, controlled continue amlodipine 7. Hypothyroidism, continue on synthroid 8. Depression, continue on Paxil 9. DVT PPx-apixaban Charges/Coding Visit Charges Inpatient E&M: 88624 Subs Hosp L2
[2021-12-18] VITALS (9 sets, daily range): BP systolic 127–142; BP diastolic 81–88; PULSE 87–97; RESP 16–20; TEMP 36.3–36.8; O2SAT 85–96
[2021-12-18] MEDS: 0.9% Saline Lock 10 ML Syringe IV ×2 (05:22→08:55)
[2021-12-18] MEDS: Levothyroxine 50 MCG Tablet PO (05:23)
--- NOTE | 2021-12-18 08:10 | RAD_ITS ---
STUDY: X-RAY CHEST REASON FOR EXAM: Male, 81 years old. Shortness of breath. History of atrial fibrillation. TECHNIQUE: Single AP portable view of the chest. COMPARISON: Comparison is made with prior study dated 12/14/2021. FINDINGS: EKG electrodes are seen. Stable elevation of the right hemidiaphragm. Improved aeration of the right lung base. Residual blunting of the right ankle. Improved aeration of the airspace disease in the lingular segment of the left upper lobe. Residual changes persist. Sternal cerclage wires and vascular clips are present from a prior sternotomy and coronary artery bypass graft procedure (CABG). Normal mediastinum and lucio. Normal visualized pulmonary arteries. There is atherosclerotic calcification of the aortic arch with tortuosity. There are diffuse degenerative changes of the visualized thoracic spine. Normal visualized ribs, clavicles, and shoulders. There is no demonstrated abnormality of the visualized soft tissue structures of the upper abdomen. RAD/Chest 1 View (Portable) IMPRESSION: Improved aeration of the right lung base as well as the infiltrate in the lingular segment of the left upper lobe. Electronically Signed: Domingo Little MD at 13:46 EST ,
[2021-12-18 08:13] LABS: Absolute Lymphocyte Count 0.33 X10^3/uL (0.83-4.51); Absolute Neutrophil Count 13.8 X10^3/uL (2.0-7.7); Basophil# 0.02 X10^3/uL; Basophil% 0.1 % (0-1); Hemoglobin 14.3 g/dL (13.0-16.5); Lymphocyte # 0.33 X10^3/ul (0.83-4.51); Lymphocyte % 2.2 % (19-41); Mean Corp Hgb Conc 33.3 g/dL (32-36); Mean Corpuscular Hgb 31.3 pg (27.0-32.0); Mean Corpuscular Volume 94.1 fL (80-94); Mean Platelet Vol. 8.6 fl (6.2-12.0); Monocyte# 0.61 X10^3/uL; Monocyte% 4.1 % (0-10); NRBC Flagged by Analyzer 0 % (0-5); Neutrophil # 13.81 X10^3/uL (2.7-7.7); Neutrophil % 92.7 % (47-70); POSITIVE DIFFERENTIAL YES; Platelet Count 226 K/mm3 (150-450); RBC Distribution Width SD 44.7 fl (35.1-43.9); Red Blood Count 4.57 M/mm3 (4.6-6.2); White Blood Count 14.9 K/mm3 (4.4-11.0)
[2021-12-18 08:15] LABS: Differential Indicated SCAN CRITERIA MET
[2021-12-18 08:36] LABS: ALB/GLOB Ratio 0.6 RATIO (0.9-2.4); AST(SGOT) 138 U/L (15-37); Alanine Aminotransfer ALT/SGPT 267 U/L (16-61); Albumin, Serum 2.6 g/dL (3.2-5.0); Alkaline Phosphatase 155 U/L (45-117); Anion Gap 5 (5-15); BUN 36 mg/dL (7-18); BUN/Creat Ratio 60.2 RATIO (10-20); Calcium,Total 8.7 mg/dL (8.5-10.1); Chloride 101 mmol/L (98-107); EST Glomerular Filtration Rate 138 mL/min (>60); Est Glom Filt Rate - Afr Amer 166 mL/min (>60); Estimated Creatinine Clearance 60.66 ml/min; Globulin 4.3 g/dL (2.2-4.2); Glucose 173 mg/dL (74-106); Potassium 4.1 mmol/L (3.5-5.1); Protein, Total 6.9 g/dL (6.4-8.2); Sodium Level 138 mmol/L (136-145)
[2021-12-18] MEDS: Furosemide 40 MG/4 ML Vial IV (08:55)
[2021-12-18] MEDS: amLODIPine 5 MG Tablet PO (08:56)
[2021-12-18] MEDS: Paroxetine 20 MG Tablet PO (08:56)
[2021-12-18] MEDS: Famotidine 20 MG Tablet PO (08:56)
[2021-12-18] MEDS: Clopidogrel Bisulfate 75 MG Tablet PO (08:56)
[2021-12-18] MEDS: Spironolactone 25 MG Tablet PO (08:56)
[2021-12-18] MEDS: Atenolol 50 MG Tablet PO (08:56)
[2021-12-18] MEDS: APIXABAN 5 MG TABLET PO (08:56)
[2021-12-18] MEDS: Aspirin 81 MG TAB.CHEW PO (08:56)
--- NOTE | 2021-12-18 10:00 | EKG12_ITS ---
Test Reason : postpci Blood Pressure : / mmHG Vent. Rate : 079 BPM Atrial Rate : 000 BPM P-R Int : 000 ms QRS Dur : 092 ms QT Int : 396 ms P-R-T Axes : 000 012 138 degrees QTc Int : 454 ms Atrial fibrillation with premature ventricular or aberrantly conducted complexes Septal infarct , age undetermined Lateral infarct , age undetermined Abnormal ECG When compared with ECG of 16-DEC-2021 04:35, Septal infarct is now Present Lateral infarct is now Present Nonspecific T wave abnormality now evident in Lateral leads Confirmed by MICHAEL GRAHAM, VERONICA ([id number]), acquisition editor NURA PEARSON ([id number]) on 12/25/2021 7:22:11 AM Referred By: Cristino Confirmed By:VERONICA RODRIGUEZ MD
[2021-12-18] MEDS: levoFLOXacin 500 MG Tablet PO (10:24)
--- NOTE | 2021-12-18 11:00 | DCINST_ITS ---
Discharge Instructions Diet Discharge Diet: Low fat / Low cholesterol and 2000 mg Sodium Diet Activity Discharge Activity: Return to Normal Activity Follow Up Care Test Results: Test results from this visit will be discussed in further detail at your follow- up appointment, if applicable. Discharge Plan Admission Admit Date/Time: 12/14/21 17:11 Primary Reason for Your Visit: Acute COPD exacerbation/pneumonia Attending Provider: Florence Gregg Primary Care Provider: Shayne Moncada Consulting Providers: Dallas Muller ; Lamberto Dinero Instructions Additional Instructions / Restrictions: Complete your antibiotics. Follow-up with cardiac rehab as scheduled and with cardiology within 2 weeks Follow-up with your global director air and climate change within 2 weeks Discharge Orders/Prescriptions Prescriptions: New levofloxacin 500 mg Tablet 500 mg PO DAILY@0600 6 Days Qty: 6 0RF Eliquis 5 mg Tablet 5 mg PO BID 30 Days Qty: 60 0RF prednisone 10 mg tablet See Taper PO DAILY Qty: 30 0RF Taper: Prednisone Taper 40 mg WITH BREAKFAST for 3 Days and 0 Hour 30 mg WITH BREAKFAST for 3 Days and 0 Hour 20 mg WITH BREAKFAST for 3 Days and 0 Hour 10 mg WITH BREAKFAST for 3 Days and 0 Hour Continued paroxetine HCl 20 MG tablet 20 mg PO DAILY levothyroxine 50 MCG tablet 50 mcg PO DAILY atorvastatin 40 MG tablet 40 mg PO QHS amlodipine 5 MG tablet 5 mg PO DAILY spironolactone 25 MG tablet 25 mg PO DAILY famotidine 20 MG tablet 20 mg PO DAILY acetaminophen 500 MG tablet 1,000 mg PO Q6H PRN PRN (Reason: Pain Score 1-10/10) 0RF potassium chloride 10 mEq tablet extended release 20 meq PO DAILY Label Comments: TAKE 2 TABLETS BY MOUTH ONCE DAILY WITH BREAKFAST gabapentin 100 mg capsule 200 mg PO QHS atenolol 50 mg tablet 50 mg PO DAILY Label Comments: TAKE 1 TABLET BY MOUTH ONCE DAILY escitalopram oxalate 20 mg tablet 20 mg PO DAILY Label Comments: TAKE 1 TABLET BY MOUTH ONCE DAILY aspirin 81 MG tablet,chewable 81 mg PO DAILY@0800 clopidogrel 75 MG tablet 75 mg PO DAILY nystatin 1 APPLIC powder 1 applic TOPICAL BID menthol-zinc oxide 1 APPLIC ointment 1 applic TOPICAL BID Discontinued cephalexin 500 mg capsule 500 mg PO Q12 Referrals / Follow Up: Dallas Muller MD [Med Staff - Active Staff] - 12/29/21 1:30 pm (With Tylor Rose NP.) Shayne Moncada MD [Primary Care Provider] - 12/22/21 11:00 am (Your appt is at the [place] [address] [address] [place] [id number]) Disposition Disposition (needs filled in before D/C Order can be placed): Home, Self Care
--- NOTE | 2021-12-18 12:26 | CASEMGMT ---
Addendum entered by Brent Connolly 12/18/21 15:38: Son and grand-dtr in room earlier. RN CM to room and introduced self and role. Reviewed Eliquis savings card and instructions on use w/them. Questions answered. They were made aware of importance of taking this medications and made aware, if refills are not affordable, to discuss other possible options w/cardiology @ f/u appt. They voice understanding. Per son and grand-dtr, pt does not have a pulse ox. Pulse ox provided to Yahaira GUAN, and she will give to pt/family w/instructions on use @ discharge. Jena from [facility] up to room to provide pt w/portable oxygen tank and to talk w/pt and family about Home O2 and instruct on home set up process. Pt and family deny having other discharge planning needs or concerns. PT/OT evals have been completed. No addidtional therapy recommended. Sue PIRES RN, CM Original Note: FREIDA CAIN note: Pt being discharged today. Script for Eliquis has been sent to [facility] pharmacy. Eliquis savings card provided to pt and instructed on use. Pt is very [employer]. He states he understands the savings card, but did state to RN CM that it would be helpful if RN CM also reviewed it with his son when he comes in. Yahaira GUAN, made aware, and to notify RN CM when son arrives. Pt qualifies for Home O2 @ 3 l/m w/exertion. FREIDA CAIN reviewed list of local DME companies w/pt and made aware [facility] is affiliated w/[facility]. Pt chooses [employer]. Will obtain script from Dr Gregg and will send referral to [employer] when it is available. [facility] notified and to meet w/pt and son when he comes in to review oxygen set up process, once referral has been sent. Pt states, at his baseline, he does not use any DME to ambulate, but states he does have a walker available to use, that he had to use in the past after surgery. He denies need for HHC at this time. PT/OT evals are pending. FREIDA CM to discuss any additional therapy w/pt if it is recommended after eval. Pt reports his grand-daughter is planning on staying w/him this weekend after he returns home. His son will take him home @ discharge. Sue BSN RN CM
--- NOTE | 2021-12-18 13:00 | DS.PCM_ITS ---
Providers Date of Admission: 12/14/21 Date of Discharge: 12/18/21 Primary Care Physician: Dr. Shayne Moncada MD Consultations 12/14/21 18:26 Consult: Cardiology Routine Consulting Provider: Dallas Muller Reason for Consult: afib. NSTEMI EMERGENT Consult: No MD Notified: Yes Date Notified: 12/14/21 Time Notified: 17:21 Method of Notification: Verbal Reason For Visit: AFIB / RVR / NSTEMI / PNEUMONIA Diagnosis Discharge Diagnosis (1) Non-STEMI (non-ST elevated myocardial infarction): Status: Acute Code(s): I21.4 - Non-ST elevation (NSTEMI) myocardial infarction Plan 1. Acute NSTEMI(type 1) s/p cardiac cath 2. Paroxysmal A. fib with RVR 3. Acute hypoxia secondary to acute COPD exacerbation/legionella pneumonia 4. Acute COPD exacerbation/legionella pneumonia 5.Gallstones 6. Hypertension 7. Hypothyroidism 8. Depression Medications at Discharge Home Medications levothyroxine 50 mcg tablet 50 mcg PO DAILY thyroid 07/25/19 paroxetine HCl 20 mg tablet 20 mg PO DAILY mood 07/25/19 amlodipine 5 mg tablet 5 mg PO DAILY bp 07/28/19 atorvastatin 40 mg tablet 40 mg PO QHS cholesterol 07/28/19 famotidine 20 mg tablet 20 mg PO DAILY stomach 07/28/19 spironolactone 25 mg tablet 25 mg PO DAILY diuretic 07/28/19 acetaminophen 500 mg tablet 1,000 mg PO Q6H PRN PRN Pain Score 1-11/1608/14/19 aspirin 81 mg chewable tablet 81 mg PO DAILY@0800 health 12/14/21 atenolol 50 mg tablet 50 mg PO DAILY bp 12/14/21 clopidogrel 75 mg tablet 75 mg PO DAILY blood thinner 12/14/21 escitalopram oxalate 20 mg tablet 20 mg PO DAILY depression 12/14/21 gabapentin 100 mg capsule 200 mg PO QHS foot pain 12/14/21 menthol 0.44 %-zinc oxide 20.6 % topical ointment 1 applic TOPICAL BID skin 12/14/21 nystatin 100,000 unit/gram topical powder 1 applic TOPICAL BID skin 12/14/21 potassium chloride 10 mEq tablet,extended release 20 meq PO DAILY supplement 12/14/21 apixaban 5 mg tablet (Eliquis) 5 mg PO BID 30 days #60 tabs 12/18/21 levofloxacin 500 mg tablet 500 mg PO DAILY@0600 6 days #6 tabs 12/18/21 prednisone 10 mg tablet See Taper PO DAILY #30 tabs 12/18/21 Hospital Course Procedures 2-D Echocardiogram and Cardiac catheterization Summary of Care Provided Minutes Spent on Discharge: 40 Hospital Course: 81-year-old male with past medical history of hypertension, not in acute exacerbation, will continue with prn breathing treatments, continue on oxygen who comes in with complaints of shortness of breath and chest pain. 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 Afterwards his whole chest feels sore but eventually gotten better. In the emergency room, he was found to be in A. fib with RVR with heart rate in the 140s. His troponin were elevated at 543. Chest x-ray was significant for a left lingular pneumonia. Urine legionella antigen was positive. Patient was c ontinued on IV azithromycin and ceftriaxone as well as IV Solu-Medrol. Cardiology was consulted. Patient underwent cardiac catheterization on 12/16/2021. Findings showed coronary artery disease with distal left main and ostial circumflex artery stenosis and diffuse disease of the circumflex artery. Patient underwent PCI with stent placement in the distal left main. Postprocedure, patient remained hypoxic on 2 L of oxygen. He also had episodes of A. fib with RVR. He was kept on atenolol 50 mg daily. he did receive a dose of Lasix on the day of discharge. He still required 3 L of oxygen with exertion. Patient was discharged home on aspirin, Plavix, statin, atenolol as well as Eliquis. Patient will follow-up with cardiac rehab as well as with cardiology as scheduled. He will follow-up with his primary care doctor within 1 week. Physical Exam Narrative Physical exam: General: Alert, Oriented x3, Cooperative, on 2 L of oxygen HEENT: Atraumatic Oral: Moist Mucosa Neck: Supple Lungs: Diminished to auscultation, scattered wheezes Cardiovascular: HS I+II, regular, no murmurs Abdomen: Bowel Sounds Present, Soft, Non Tender Extremities: No edema Skin: No rashes, No breakdown Neurological: Grossly intact Psych/Mental Status: Appropriate Weight / BMI Weight Weight: 88.133 kg Body Mass Index (BMI) 27.1 ABG / Lab / Microbiology Data Result Diagrams: 12/18/21 08:00 12/18/21 08:00 Laboratory: Laboratory Results - last 24 hr 12/18/21 08:00: WBC 14.9 H, RBC 4.57 L, Hgb 14.3, Hct 43.0, MCV 94.1 H, MCH 31.3, MCHC 33.3, RDW Std Deviation 44.7 H, RDW Coeff of Erica 13.0, Plt Count 226, MPV 8.6, Immature Gran % (Auto) 0.900, Neut % (Auto) 92.7 H, Lymph % (Auto) 2.2 L, Mcdowell % (Auto) 4.1, Eos % (Auto) 0.0, Baso % (Auto) 0.1, Absolute Neuts (auto) 13.8 H, Absolute Lymphs (auto) 0.33 L, Nucleated RBC % 0 12/18/21 08:00: Sodium 138, Potassium 4.1, Chloride 101, Carbon Dioxide 32.0, Anion Gap 5, BUN 36 H, Creatinine 0.60 L, Estim Creat Clear Calc 60.66, Est GFR (MDRD) Af Amer 166, Est GFR (MDRD) Non-Af 138, BUN/Creatinine Ratio 60.2 H, Glucose 173 H, Calcium 8.7, Total Bilirubin 0.50, AST 138 H, ALT 267 H, Alkaline Phosphatase 155 H, Total Protein 6.9, Albumin 2.6 L, Globulin 4.3 H, Albumin/Globulin Ratio 0.6 L Microbiology: Microbiology 12/15/21 02:45 Urine, Clean Catch Legionella Antigen - Final Legionella Antigen 12/15/21 02:45 Urine, Clean Catch Streptococcus pneumoniae Antigen (M - Final 12/14/21 16:10 Nasal Secretion SARS-CoV-2 Antigen (Rapid) - Final D/C Instructions Discharge Diet: Low fat / Low cholesterol and 2000 mg Sodium Diet Meaningful Use Info Meaningful Use Diagnoses (Choose all that apply): AMI AMI/Post PCI/Angioplasty Aspirin given w/in 24hrs of arrival?: Yes ASA at discharge?: Yes Antiplatelet Therapy at Discharge:: Yes Statins at discharge?: Yes Jean/ARB at discharge?: Yes Beta Junaid at discharge?: Yes Done w/ Acute [place] measure.: Yes Documented LVEF (%): 55 Discharge Plan Admission Admit Date/Time: 12/14/21 17:11 Primary Reason for Your Visit: Acute COPD exacerbation/pneumonia Attending Provider: Florence Gregg Primary Care Provider: Shayne Moncada Consulting Providers: Dallas Muller ; Lamberto Dinero Instructions Additional Instructions / Restrictions: Complete your antibiotics. Follow-up with cardiac rehab as scheduled and with cardiology within 2 weeks Follow-up with your collections officer within 2 weeks Discharge Orders/Prescriptions Prescriptions: New levofloxacin 500 mg Tablet 500 mg PO DAILY@0600 6 Days Qty: 6 0RF Eliquis 5 mg Tablet 5 mg PO BID 30 Days Qty: 60 0RF prednisone 10 mg tablet See Taper PO DAILY Qty: 30 0RF Taper: Prednisone Taper 40 mg WITH BREAKFAST for 3 Days and 0 Hour 30 mg WITH BREAKFAST for 3 Days and 0 Hour 20 mg WITH BREAKFAST for 3 Days and 0 Hour 10 mg WITH BREAKFAST for 3 Days and 0 Hour Continued paroxetine HCl 20 MG tablet 20 mg PO DAILY levothyroxine 50 MCG tablet 50 mcg PO DAILY atorvastatin 40 MG tablet 40 mg PO QHS amlodipine 5 MG tablet 5 mg PO DAILY spironolactone 25 MG tablet 25 mg PO DAILY famotidine 20 MG tablet 20 mg PO DAILY acetaminophen 500 MG tablet 1,000 mg PO Q6H PRN PRN (Reason: Pain Score 1-10/10) 0RF potassium chloride 10 mEq tablet extended release 20 meq PO DAILY Label Comments: TAKE 2 TABLETS BY MOUTH ONCE DAILY WITH BREAKFAST gabapentin 100 mg capsule 200 mg PO QHS atenolol 50 mg tablet 50 mg PO DAILY Label Comments: TAKE 1 TABLET BY MOUTH ONCE DAILY escitalopram oxalate 20 mg tablet 20 mg PO DAILY Label Comments: TAKE 1 TABLET BY MOUTH ONCE DAILY aspirin 81 MG tablet,chewable 81 mg PO DAILY@0800 clopidogrel 75 MG tablet 75 mg PO DAILY nystatin 1 APPLIC powder 1 applic TOPICAL BID menthol-zinc oxide 1 APPLIC ointment 1 applic TOPICAL BID Discontinued cephalexin 500 mg capsule 500 mg PO Q12 Referrals / Follow Up: Dallas Muller MD [Med Staff - Active Staff] - 12/29/21 1:30 pm (With Tylor Rose NP.) Shayne Moncada MD [Primary Care Provider] - 12/22/21 11:00 am (Your appt is at the [facility] [address] [place] [address] [id number]) Disposition Disposition (needs filled in before D/C Order can be placed): Home, Self Care
== END 2021-12-18 16:02 | disposition home or self-care (01) | DRG 246 ==
LOC: ED 16:21 → PCU 12-15 06:55
PROVIDERS: Specialist; Emergency Provider Student in an Organized Health Care Education/Training Program; PCP Family Medicine; Visit Provider Internal Medicine
DX: I21.4 Non-ST elevation (NSTEMI) myocardial infarction (principal); J13 Pneumonia due to Streptococcus pneumoniae; J44.0 Chronic obstructive pulmonary disease with (acute) lower respiratory infection; J44.1 Chronic obstructive pulmonary disease with (acute) exacerbation; I48.0 Paroxysmal atrial fibrillation; I10 Essential (primary) hypertension; I25.10 Atherosclerotic heart disease of native coronary artery without angina pectoris; E03.9 Hypothyroidism, unspecified; K80.20 Calculus of gallbladder without cholecystitis without obstruction; Z87.891 Personal history of nicotine dependence; Z79.891 Long term (current) use of opiate analgesic; Z79.82 Long term (current) use of aspirin; H91.90 Unspecified hearing loss, unspecified ear; F32.A Depression, unspecified; Z79.02 Long term (current) use of antithrombotics/antiplatelets; Z79.01 Long term (current) use of anticoagulants; Z95.1 Presence of aortocoronary bypass graft
CPT/HCPCS: 36415; 71045; 71275; 76705; 80048; 80053; 83880; 84443; 84484; 85025; 85027; 85379; 87449; 87811; 92928; 93005; 93306; 93455; 94640; 97162; 97165; 99152; 99153; 99285; J7030; Q9967; A4216; C1725; C1760; C1769; C1874; C1887; C9600; J0696; J1940

== ENCOUNTER → 2022-01-18 | Outpatient (CLI) | payer MEDICARE, SELFPAY | END | disposition home or self-care (01) | LOC: SL 10:57 | PROVIDERS: PCP Family Medicine; Visit Provider Nurse Practitioner Acute Care | DX: G47.33 Obstructive sleep apnea (adult) (pediatric) (principal) ==

== ENCOUNTER 2022-09-22 18:33 | Emergency (ER) | payer MEDICARE, SELFPAY ==
[2022-09-22 18:34] VITALS: BP 149/65; PULSE 85; RESP 18; TEMP 36.3; O2SAT 96
--- NOTE | 2022-09-22 19:15 | RAD_ITS ---
EXAM: XR RIGHT TIBIA AND FIBULA, 2 VIEWS CLINICAL INDICATION: injury TECHNIQUE: Frontal and lateral views of the right tibia and fibula. COMPARISON: No relevant prior studies available. FINDINGS: BONES/JOINTS: Fracture of the distal fibula. There are mild degenerative changes with narrowing of the medial knee joint. No sclerotic or destructive changes observed. SOFT TISSUES: Unremarkable. No soft tissue swelling or gas. No radiopaque foreign body. RAD/Tibia & Fibula 2 Views IMPRESSION: Fracture distal fibula. Electronically Signed: Dakota Damian MD at 20:12 EDT ,
--- NOTE | 2022-09-22 19:16 | EDS_ITS ---
HPI History of Present Illness Chief Complaint: Lower Extremity Injury Informant: patient and family Narrative Narrative: Brought in by children for evaluation of right lower extremity injury occurring over 24 hours ago. Got a bed slipped foot went under the bed. No head injuries. No loss of conscious. He does not walk with any assistance at baseline. He is limping on this. He took Tylenol 3 hours ago. Does take platelet therapy history of coronary disease. 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) Hoarseness HTN (hypertension) left vocal cord paralysis Prostate CA Stage 2 moderate COPD by GOLD classification Stroke Home Medications levothyroxine 50 mcg tablet 50 mcg PO DAILY thyroid 07/25/19 [History Last Taken 12/14/21] amlodipine 5 mg tablet 5 mg PO DAILY bp 07/28/19 [History Last Taken Unknown] atorvastatin 40 mg tablet 40 mg PO QHS cholesterol 07/28/19 [History Last Taken 12/14/21] spironolactone 25 mg tablet 25 mg PO DAILY diuretic 07/28/19 [History Last Taken 12/14/21] aspirin 81 mg chewable tablet 81 mg PO DAILY@0800 health 12/14/21 [History Last Taken 12/14/21] atenolol 50 mg tablet 50 mg PO DAILY bp 12/14/21 [History Last Taken 12/14/21] clopidogrel 75 mg tablet 75 mg PO DAILY blood thinner 12/14/21 [History Last Taken Unknown] escitalopram oxalate 20 mg tablet 20 mg PO DAILY depression 12/14/21 [History Last Taken 12/14/21] gabapentin 100 mg capsule 200 mg PO QHS foot pain 12/14/21 [History Last Taken 12/14/21] potassium chloride 10 mEq tablet,extended release 20 meq PO DAILY supplement 12/14/21 [History Last Taken 12/14/21] acetaminophen 500 mg tablet 1,000 mg PO Q6H PRN Pain Score 1-11/1612/28/21 [History Last Taken Unknown] docusate sodium 100 mg capsule (DOK) 100 mg PO DAILY #20 CAPSULES 09/22/22 [Rx Last Taken Unknown] tramadol 50 mg tablet 50 mg PO Q4H PRN PRN Pain 3 days #20 tabs 09/22/22 [Rx Last Taken Unknown] Allergy/AdvReac Type Severity Reaction Status Date / Time oxycodone [From Percodan] Allergy Other Verified 09/22/22 18:34 Surgical History Cataract extraction status History of coronary artery stent placement (12/16/21) History of hip replacement History of open heart surgery Social History Smoking Status: Former smoker quit date: 02/08/92 pack-years: 37 Tobacco: How many years used: 20 alcohol intake: never substance use type: does not use ROS ROS ED Constitutional Constitutional ED: Denies chills, fever(s) or sweats Eyes Eyes: Denies change in vision ENT ENT ED: Denies dysphagia or sore throat Cardiovascular Cardiovascular: Denies chest pain, leg edema, palpitations or racing heartbeat Respiratory/Chest Respiratory/Chest: Denies cough, dyspnea or dyspnea on exertion Gastrointestinal Gastrointestinal: Denies abdominal pain, diarrhea, nausea or vomiting Genitourinary Genitourinary ED: Denies dysuria, hematuria or urinary frequency Musculoskeletal Musculoskeletal: Reports extremity pain; Denies back pain or neck pain Integumentary Denies rash or wounds Neurologic Neurologic: Denies headache(s), paresthesias or weakness EXAM Physical Exam Const Vital Signs: 09/22/22 18:34 09/22/22 21:47 Temperature 97.3 F L Temperature Source Temporal Pulse Rate 85 69 Respiratory Rate 18 16 Blood Pressure 149/65 H Blood Pressure Mean 93 Pulse Ox 96 97 Oxygen Delivery Method Room Air Positive well nourished and well developed General Appearance ED: well developed and NAD HEENT Reports moist mucous membranes normocephalic and atraumatic Eyes PERRL, EOMs intact bilaterally and conjunctivae normal General Eye ED: Yes normal appearance of both eyes Neck no lymphadenopathy and supple General: Negative for tenderness Chest Wall Chest: Negative for tenderness Resp normal respiratory effort and normal air movement Effort and Inspection: symmetric chest movement; Negative for respiratory distress Cardio regular rate, regular rhythm and no murmurs Peripheral Pulses: pulses 2+ throughout GI normal to inspection, nondistended, normoactive bowel sounds and non-tender Palpation: Negative for guarding or rebound tenderness present Back/Spine no CVA tenderness and no thoracic nor lumbar tenderness Extremity Extremity Narrative: Right lower extremity: No hip tenderness no knee tenderness. There was bruising to the distal leg with mild swelling. Minimal lateral malleolus tenderness. Swelling to the foot with bruising. Skin was intact. No proximal fifth base tenderness. Neuro oriented x3 and no sensory deficits noted Sensorium / Orientation: awake and alert Skin no rashes or lesions noted and no wounds MDM MDM MDM Narrative Medical decision making narrative: Interventions / MDM: Differential diagnosis: Ankle fracture, foot contusion Diagnosis considered but do not suspect: N/A My EKG interpretation: N/A Imaging independently reviewed and interpreted by myself: 2 view x-ray right tib-fib distal fibular fracture. Additional 2 views ankle oblique and stress view, there is widening of the mortise. Three-view x-ray right foot: No fracture. All also read by radiology. External documents reviewed: N/A Test considered but not ordered:N/A ED course: Patient nontoxic no acute distress skin is intact. Declined any additional medications. X-rays ankle and foot confirms Cowan B fracture mildly medial mortise. I did speak with on-call orthopedist Dr. Pozo, agrees with short posterior splint with stirrups and IV in the patient, nonweightbearing, walker provided. Patient has seen Dr. Longoria 2019 for his hip. However he will like to follow-up with with Dr. Pozo. He will call for follow-up. Splinting: Flow nursing assistance. Nylon sleeve was placed on the right leg, padding was placed foot lower leg additional padding around the ankle. 5 inch short posterior plaster splint, additional 4 inch stirrups were placed. Jean wrap used to secure, is placed in 90 degree plantar position. Neurovascular intact post splinting. Re-evaluation: stable Disposition discussed with patient/family/significant other: Patient and family Case discussed with consulting clinician: Orthopedist, Dr. Pozo This note was generated with [employer] dictation software. It may contain incorrect words, spelling, and punctuation that were not noted in checking the note before signing. Radiography Diagnostic Testing: Clinical Impression(s) from Imaging Studies Tibia/Fibula X-Ray 09/22/22 19:15 IMPRESSION: Fracture distal fibula. Electronically Signed: Dakota Damian MD at 20:12 EDT , Foot X-Ray 09/22/22 19:22 IMPRESSION: 1. There is a fracture of the distal fibula. 2. Mild hallux valgus deformity. Electronically Signed: Dakota Damian MD at 20:11 EDT , Ankle X-Ray 09/22/22 19:30 IMPRESSION: Fracture of the distal fibula with minimal widening of the medial tibial talar joint. Electronically Signed: Dakota Damian MD at 20:07 EDT , Discharge Plan Triage Chief Complaint: Lower Extremity Injury ED Provider: Adrian Eddy Dx/Rx/DC Orders Clinical Impression: Fall, Closed fracture of right ankle Instructions: ED Ankle Fracture Prescriptions: New tramadol 50 mg tablet 50 mg PO Q4H PRN PRN (Reason: Pain) 3 Days Qty: 20 0RF docusate sodium [DOK] 100 mg capsule 100 mg PO DAILY Qty: 20 0RF No Action acetaminophen 500 mg tablet 1,000 mg PO Q6H PRN levothyroxine 50 MCG tablet 50 mcg PO DAILY atorvastatin 40 MG tablet 40 mg PO QHS amlodipine 5 MG tablet 5 mg PO DAILY spironolactone 25 MG tablet 25 mg PO DAILY potassium chloride 10 mEq tablet extended release 20 meq PO DAILY Patient Comments: TAKE 2 TABLETS BY MOUTH ONCE DAILY WITH BREAKFAST gabapentin 100 mg capsule 200 mg PO QHS atenolol 50 mg tablet 50 mg PO DAILY Patient Comments: TAKE 1 TABLET BY MOUTH ONCE DAILY escitalopram oxalate 20 mg tablet 20 mg PO DAILY Patient Comments: TAKE 1 TABLET BY MOUTH ONCE DAILY aspirin 81 MG tablet,chewable 81 mg PO DAILY@0800 clopidogrel 75 MG tablet 75 mg PO DAILY Stand Alone Forms: [employer] [facility] Primary Care Provider: Shayne Moncada Referrals: Shayne Moncada MD [Primary Care Provider] - Tomi Pozo DO [Med Staff - Active Staff] - 3-5 Days Activity Restrictions/Additional Instructions: Closed fracture of ankle. Maintain splint. Usual walker do not put weight on your right lower extremity. Take pain medications as prescribed. Continue to ice and elevate for swelling. Call office of Dr. Pozo for appointment to be seen on Tuesday or Tuesday. Disposition Disposition: Home, Self Care Discharge Date/Time: 09/22/22 22:04
--- NOTE | 2022-09-22 19:22 | RAD_ITS ---
EXAM: XR RIGHT FOOT COMPLETE, 3 OR MORE VIEWS CLINICAL INDICATION: injury TECHNIQUE: Frontal, lateral and oblique views of the right foot. COMPARISON: No relevant prior studies available. FINDINGS: BONES/JOINTS: There is a fracture of the distal fibula. There is a mild hallux valgus deformity. Preservation of the joint space. No sclerotic or destructive changes observed. SOFT TISSUES: Unremarkable. No soft tissue swelling or gas. No radiopaque foreign body. RAD/Foot min 3 Views IMPRESSION: 1. There is a fracture of the distal fibula. 2. Mild hallux valgus deformity. Electronically Signed: Dakota Damian MD at 20:11 EDT ,
--- NOTE | 2022-09-22 19:30 | RAD_ITS ---
EXAM: XR RIGHT ANKLE, 2 VIEWS CLINICAL INDICATION: injury -- oblique and gravity stress view TECHNIQUE: Frontal and lateral views of the right ankle. COMPARISON: No relevant prior studies available. FINDINGS: BONES/JOINTS: There is a fracture of the distal fibula. There is mild widening of the medial tibiotalar joint. No sclerotic or destructive changes observed. SOFT TISSUES: There is overlying soft tissue swelling. No radiopaque foreign body. RAD/Ankle 2 Views IMPRESSION: Fracture of the distal fibula with minimal widening of the medial tibial talar joint. Electronically Signed: Dakota Damian MD at 20:07 EDT ,
[2022-09-22 21:47] VITALS: PULSE 69; RESP 16; O2SAT 97
[2022-09-22 22:00] VITALS: BMI 27.9
== END 2022-09-22 22:04 | disposition home or self-care (01) ==
PROVIDERS: Emergency Provider Emergency Medicine; PCP Family Medicine; Visit Provider Emergency Medicine
DX: S82.891A Other fracture of right lower leg, initial encounter for closed fracture (principal); J44.9 Chronic obstructive pulmonary disease, unspecified; I25.10 Atherosclerotic heart disease of native coronary artery without angina pectoris; I10 Essential (primary) hypertension; Z87.891 Personal history of nicotine dependence; Z79.02 Long term (current) use of antithrombotics/antiplatelets; Z79.899 Other long term (current) drug therapy; Z79.82 Long term (current) use of aspirin; Z95.5 Presence of coronary angioplasty implant and graft; Z98.49 Cataract extraction status, unspecified eye; Z96.649 Presence of unspecified artificial hip joint; W01.0XXA Fall on same level from slipping, tripping and stumbling without subsequent striking against object, initial encounter
CPT/HCPCS: 29515; 73590; 73600; 73630; 99282

== ENCOUNTER 2023-03-15 13:16 | Emergency (ER) | payer MEDICARE, SELFPAY ==
[2023-03-15 13:17] VITALS: BP 153/94; PULSE 117; RESP 25; TEMP 36.9; O2SAT 96
--- NOTE | 2023-03-15 13:43 | RAD_ITS ---
STUDY: X-RAY CHEST REASON FOR EXAM: Male, 82 years old. Cough, dyspnea, wheezing TECHNIQUE: Single AP portable view of the chest. COMPARISON: Comparison is made with prior study dated December 18, 2021. FINDINGS: EKG electrodes are seen. Stable elevation of the right hemidiaphragm with blunting of the right cost phrenic angle. Increased markings at the right lung base suggestive of atelectasis. Cardiomegaly prior CABG. Normal mediastinum and lucio. Normal visualized pulmonary arteries. There is atherosclerotic calcification of the aortic arch with tortuosity. There are diffuse degenerative changes of the visualized thoracic spine. Mild nature calcification in the proximal right humerus suggestive of either healed bone infarct or cartilaginous calcification. There is no demonstrated abnormality of the visualized soft tissue structures of the upper abdomen. RAD/Chest PA and Lateral IMPRESSION: Stable elevation of the right hemidiaphragm with blunting of the right costophrenic angle and increased markings at the right lung base suggestive of atelectasis. Electronically Signed: Domingo Little MD at 14:57 EST ,
--- NOTE | 2023-03-15 13:49 | ED.VIS.DYS ---
HPI History of Present Illness Chief Complaint: Shortness of Breath Detail of Chief Complaint: Shortness of breath, cough, wheezing worse since last night. Also diarrhea Informant: patient and family Onset/Context/Timing Onset: Yesterday Context: gradual and exertion Timing: Continuous and Waxes and wanes Quality: Positive for Dyspnea on exertion and Wheezing; Negative for Orthopnea or PND Current Severity: Mild Maximum Severity: Severe Worsened by: Exertion and Coughing; Not Worsened By Lying flat Relieved by: Nothing Associated Symptoms cough, rhinorrhea, sore throat, subjective, chills and clear sputum; Negative for post nasal drip, ear pain, fever or sweats Chest Pain: Positive for None Narrative Narrative: Patient is an 82-year-old male with 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 He is able to walk across the room before becoming short of breath. Prior to his illness he was able to walk twice as far. He is not on oxygen at home. He denies any ill contacts. He does complain of subjective fever with chills. He does endorse rhinorrhea, congestion and sore throat. His cough is productive of clear sputum. He denies hemoptysis. He denies history of PE or DVT. He has chronic swelling of his right leg due to prior fracture. He does report nausea without vomiting. He is also had diarrhea since last evening. He denies headache, visual, ocular auditory symptoms. He denies chest pain, orthopnea or PND. He denies blood or mucus in his diarrhea. He denies black stool or maroon-colored stool. 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) Hoarseness HTN (hypertension) left vocal cord paralysis Prostate CA Stage 2 moderate COPD by GOLD classification Stroke Home Medications levothyroxine 50 mcg tablet 50 mcg PO DAILY thyroid 07/25/19 [History Last Taken 12/14/21] amlodipine 5 mg tablet 5 mg PO DAILY bp 07/28/19 [History Last Taken Unknown] atorvastatin 40 mg tablet 40 mg PO QHS cholesterol 07/28/19 [History Last Taken 12/14/21] spironolactone 25 mg tablet 25 mg PO DAILY diuretic 07/28/19 [History Last Taken 12/14/21] aspirin 81 mg chewable tablet 81 mg PO DAILY@0800 health 12/14/21 [History Last Taken 12/14/21] atenolol 50 mg tablet 50 mg PO DAILY bp 12/14/21 [History Last Taken 12/14/21] clopidogrel 75 mg tablet 75 mg PO DAILY blood thinner 12/14/21 [History Last Taken Unknown] escitalopram oxalate 20 mg tablet 20 mg PO DAILY depression 12/14/21 [History Last Taken 12/14/21] gabapentin 100 mg capsule 200 mg PO QHS foot pain 12/14/21 [History Last Taken 12/14/21] potassium chloride 10 mEq tablet,extended release 20 meq PO DAILY supplement 12/14/21 [History Last Taken 12/14/21] acetaminophen 500 mg tablet 1,000 mg PO Q6H PRN Pain Score 1-10 12/28/21 [History Last Taken Unknown] docusate sodium 100 mg capsule (DOK) 100 mg PO DAILY #20 CAPSULES 09/22/22 [Rx Last Taken Unknown] tramadol 50 mg tablet 50 mg PO Q4H PRN PRN Pain 3 days #20 tabs 09/22/22 [Rx Last Taken Unknown] albuterol sulfate 90 mcg/actuation aerosol inhaler (Ventolin HFA) 2 puff inhalation Q4H PRN PRN Wheezing ##1 03/15/23 [Rx Last Taken Unknown] doxycycline monohydrate 100 mg capsule 100 mg PO BID #10 CAPSULES 03/15/23 [Rx Last Taken Unknown] ipratropium bromide 17 mcg/actuation HFA aerosol inhaler (Atrovent HFA) 2 puff inhalation Q8H #12.9 grams 03/15/23 [Rx Last Taken Unknown] prednisone 20 mg tablet 60 mg (3 x 20 mg) PO DAILY #15 TABLETS 03/15/23 [Rx Last Taken Unknown] Allergy/AdvReac Type Severity Reaction Status Date / Time oxycodone [From Percodan] Allergy Other Verified 03/15/23 13:19 Surgical History Cataract extraction status History of coronary artery stent placement (12/16/21) History of hip replacement History of open heart surgery Social History Smoking Status: Former smoker quit date: 02/08/92 pack-years: 37 Tobacco: How many years used: 20 alcohol intake: never substance use type: does not use ROS ROS ED Constitutional Constitutional ED: Reports chills, fever(s) and other Details: Fever is subjective. ; Denies sweats or weight loss Eyes Eyes: Denies blurry vision, change in vision or diplopia ENT ENT ED: Reports rhinorrhea; Denies ear pain Cardiovascular Cardiovascular: Reports palpitations; Denies chest pain, orthopnea, paroxysmal nocturnal dyspnea or racing heartbeat Respiratory/Chest Respiratory/Chest: Reports cough, dyspnea, dyspnea on exertion and sputum; Denies orthopnea or paroxysmal nocturnal dyspnea Gastrointestinal Gastrointestinal: Reports abdominal pain, diarrhea and nausea; Denies constipation, melena or vomiting Genitourinary Genitourinary ED: Denies dysuria, hematuria or urinary frequency Musculoskeletal Musculoskeletal: Reports arthralgias and myalgias; Denies back pain or neck pain Integumentary Denies rash Neurologic Neurologic: Denies weakness Psychiatric Psychiatric: Denies anxiety or depression Endocrine Endocrinology: Denies cold intolerance, heat intolerance, polydipsia or polyuria Hematologic/Lymphatic Hematologic/Lymphatic: Denies easy bleeding EXAM Physical Exam Const Vital Signs: 03/15/23 13:17 03/15/23 14:07 03/15/23 14:11 Temperature 98.5 F Temperature Source Temporal Pulse Rate 117 H 101 H Respiratory Rate 25 H 23 H Respiratory Effort Short of Breath Blood Pressure 153/94 H Blood Pressure Mean 113 Pulse Ox 96 94 Oxygen Delivery Method Room Air 03/15/23 14:07 Temperature Temperature Source Pulse Rate 103 H Respiratory Rate 25 H Respiratory Effort Blood Pressure Blood Pressure Mean Pulse Ox Oxygen Delivery Method Positive well nourished and well developed Constitutional Narrative: Patient appears ill. He is tachycardic and tachypneic. There is use of accessory muscles. General Appearance ED: well developed and pallor; Negative for NAD HEENT Reports dry mucous membranes HEENT Narrative: Uvula is midline. There is no deviation with protrusion. Ears are normal. Nares patent with clear discharge. atraumatic Mouth ED: Yes dry mucous membranes Mouth: dry mucous membranes Eyes PERRL and EOMs intact bilaterally General Eye ED: Negative for pale conjunctiva or scleral icterus Neck no lymphadenopathy, supple, no meningeal signs and no JVD Neck Narrative: Trachea is midline. Neck is supple. There is no stridor. Resp No normal respiratory effort and No clear to auscultation bilaterally Resp Narrative: There is increased expiratory phase. There is decreased air movement. Auscultation: rales bilateral lower and wheezes expiratory wheezes, scattered wheezes and throughout Cardio regular rhythm, S1 normal heart sound and S2 normal heart sound Rate: tachycardic GI non-tender and no masses; Negative for non-distended Palpation: soft Back/Spine no CVA tenderness and normal to inspection Extremity normal to inspection Neuro oriented x3 and CN's II-XII intact bilaterally [place] Coma Scale: document GCS findings Spontaneous Obeys Commands Oriented 15 Psych mental status grossly normal Skin no wounds and No skin turgor normal General Skin Exam: pallor; Negative for jaundice MDM MDM MDM Narrative Medical decision making narrative: Differential diagnosis is exacerbated COPD, viral illness exacerbating COPD, pneumonia exacerbating COPD, congestive heart failure causing wheezing and rales. EKG was obtained to rule out acute ischemic changes. CBC was obtained to assess for anemia and white count. Competence metabolic panel lactate were obtained to assess for endorgan dysfunction. History & Record Review Additional record(s) reviewed:: Prior inpatient record (2021 for exacerbation of COPD.), Prior ED visit (For COPD exacerbation, fatigue and hip fracture.) and Prior labs Lab Data Attestation: I reviewed the patient's lab results. Lab results narrative: White count is unremarkable. There is a slight shift. Competence metabolic panel was elevated BUN to creatinine ratio of 28:1. BUN is 21 with a creatinine 0.7. Transaminases normal. Lactate is normal at 1.7. Labs: Laboratory Results - last 24 hr 03/15/23 14:00 WBC 9.1 RBC 4.29 L Hgb 13.1 Hct 42.9 MCV 100.0 H MCH 30.5 MCHC 30.5 L RDW Std Deviation 48.4 H RDW Coeff of Erica 13.2 Plt Count 135 L MPV 9.9 Immature Gran % (Auto) 0.700 Neut % (Auto) 80.9 H Lymph % (Auto) 8.8 L [place] % (Auto) 6.8 Eos % (Auto) 2.1 Baso % (Auto) 0.7 Absolute Neuts (auto) 7.4 Absolute Lymphs (auto) 0.80 L Nucleated RBC % 0 Sodium 137 Potassium 4.0 Chloride 107 Carbon Dioxide 28.0 Anion Gap 2 L BUN 21 H Creatinine 0.74 Estim Creat Clear Calc 83.26 Est GFR (MDRD) Af Amer 131 Est GFR (MDRD) Non-Af 108 BUN/Creatinine Ratio 28.5 H Glucose 110 H Lactic Acid 1.7 Calcium 8.6 Total Bilirubin 0.60 AST 11 L ALT 20 Alkaline Phosphatase 116 Total Protein 7.0 Albumin 3.5 Globulin 3.5 Albumin/Globulin Ratio 1.0 Radiography Chest X-Ray - ED: 1 View and Read by ED Physician (Elevated right hemidiaphragm with blunting of the costophrenic angle and atelectasis. The right hemidiaphragm is chronically elevated. There is no increased volume loss. Right heart border is 6 GERD. If perihilar region is normal. Osseous structures are normal. This independent reviewed interp) Diagnostic Testing: Clinical Impression(s) from Imaging Studies Chest X-Ray 03/15/23 13:43 IMPRESSION: Stable elevation of the right hemidiaphragm with blunting of the right costophrenic angle and increased markings at the right lung base suggestive of atelectasis. Electronically Signed: Domingo Little MD at 14:57 EST , EKG Initial EKG: Attestation: I personally reviewed and interpreted this EKG as follows: Interpretation: Atrial Fibrillation (Rate is 96. QS duration 70 ms, QT duration 334 ms. [place] is normal.) Treatment and Re-Evaluation :: Patient was reassessed at 1550. Patient has slight wheezing on the right side only. Patient is tachycardic but he is no longer tachypneic. Plan is discharge. Albuterol MDI, Atrovent MDI and burst of prednisone. Since he does have a productive cough will treat with short course of doxycycline. Discharge Plan Triage Chief Complaint: Shortness of Breath ED Provider: Parker Metzger Dx/Rx/DC Orders Clinical Impression: Acute exacerbation of chronic obstructive pulmonary disease, Hypothyroidism, HTN (hypertension), Atherosclerosis of coronary artery of [place] without angina pectoris, Stage 2 moderate COPD by GOLD classification, Prostate CA, Acute bronchospasm, Chronic a-fib Instructions: ED COPD Flare Prescriptions: New prednisone 20 mg tablet 60 mg PO DAILY Qty: 15 0RF doxycycline monohydrate 100 mg capsule 100 mg PO BID Qty: 10 0RF albuterol sulfate [Ventolin HFA] 90 mcg/actuation HFA aerosol inhaler 2 puff inhalation Q4H PRN PRN (Reason: Wheezing) Qty: 1 0RF Atrovent HFA 17 mcg/actuation HFA aerosol inhaler 2 puff inhalation Q8H Qty: 12.9 0RF No Action acetaminophen 500 mg tablet 1,000 mg PO Q6H PRN levothyroxine 50 MCG tablet 50 mcg PO DAILY atorvastatin 40 MG tablet 40 mg PO QHS amlodipine 5 MG tablet 5 mg PO DAILY spironolactone 25 MG tablet 25 mg PO DAILY potassium chloride 10 mEq tablet extended release 20 meq PO DAILY Patient Comments: TAKE 2 TABLETS BY MOUTH ONCE DAILY WITH BREAKFAST gabapentin 100 mg capsule 200 mg PO QHS atenolol 50 mg tablet 50 mg PO DAILY Patient Comments: TAKE 1 TABLET BY MOUTH ONCE DAILY escitalopram oxalate 20 mg tablet 20 mg PO DAILY Patient Comments: TAKE 1 TABLET BY MOUTH ONCE DAILY aspirin 81 MG tablet,chewable 81 mg PO DAILY@0800 clopidogrel 75 MG tablet 75 mg PO DAILY tramadol 50 mg tablet 50 mg PO Q4H PRN PRN (Reason: Pain) 3 Days Qty: 20 0RF docusate sodium [DOK] 100 mg capsule 100 mg PO DAILY Qty: 20 0RF Primary Care Provider: Shayne Moncada Referrals: Shayne Moncada MD [Primary Care Provider] - Disposition Disposition: Home, Self Care
[2023-03-15] MEDS: Ipratropium/Albuterol Sulfate 3 ML AMPUL.NEB INHALATION (13:55)
[2023-03-15] MEDS: Albuterol 2.5 MG/3 ML VIAL.NEB. INHALATION ×3 (14:06)
[2023-03-15] MEDS: MethylPREDNISolone 125 MG/2 ML Vial IV (14:06)
[2023-03-15 14:07] VITALS: PULSE 101; PULSE 103; RESP 23; RESP 25; O2SAT 94
[2023-03-15 14:10] VITALS: BMI 29.9
[2023-03-15 14:14] LABS: Absolute Neutrophil Count 7.4 X10^3/uL (2.0-7.7); Basophil# 0.06 X10^3/uL; Basophil% 0.7 % (0-1); Eosinophil# 0.19 X10^3/uL; Eosinophils% 2.1 % (0-5); Hematocrit 42.9 % (40-54); Hemoglobin 13.1 g/dL (13.0-16.5); Lymphocyte % 8.8 % (19-41); Mean Corp Hgb Conc 30.5 g/dL (32-36); Mean Corpuscular Hgb 30.5 pg (27.0-32.0); Mean Platelet Vol. 9.9 fl (6.2-12.0); Monocyte# 0.62 X10^3/uL; Monocyte% 6.8 % (0-10); NRBC Flagged by Analyzer 0 % (0-5); Neutrophil # 7.38 X10^3/uL (2.7-7.7); Neutrophil % 80.9 % (47-70); Platelet Count 135 K/mm3 (150-450); RBC Distribution Width CV 13.2 % (11.6-14.6); RBC Distribution Width SD 48.4 fl (35.1-43.9); Red Blood Count 4.29 M/mm3 (4.6-6.2); White Blood Count 9.1 K/mm3 (4.4-11.0)
[2023-03-15 14:30] LABS: AST(SGOT) 11 U/L (15-37); Alanine Aminotransfer ALT/SGPT 20 U/L (16-61); Albumin, Serum 3.5 g/dL (3.2-5.0); Alkaline Phosphatase 116 U/L (45-117); Anion Gap 2 (5-15); BUN 21 mg/dL (7-18); BUN/Creat Ratio 28.5 RATIO (10-20); Calcium,Total 8.6 mg/dL (8.5-10.1); Chloride 107 mmol/L (98-107); Creatinine, Serum 0.74 mg/dL (0.70-1.30); EST Glomerular Filtration Rate 108 mL/min (>60); Est Glom Filt Rate - Afr Amer 131 mL/min (>60); Estimated Creatinine Clearance 83.26 ml/min; Globulin 3.5 g/dL (2.2-4.2); Glucose 110 mg/dL (74-106); Sodium Level 137 mmol/L (136-145)
[2023-03-15 14:48] LABS: Lactic Acid 1.7 mmol/L (0.4-1.9)
[2023-03-15 15:52] VITALS: BP 159/100; PULSE 106; RESP 22; O2SAT 95
--- OUTSIDE RECORDS SUMMARY | 2023-03-15 18:39 | XMS RPT_ITS | CCD ---
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 Engineer Name Role Phone Paddy Zaidi MD Primary Care Provider HEVER HERNANDEZ Attending Unavailable PADDY ZAIDI Primary Care Unavailable PADDY ZAIDI Primary Care Unavailable PADDY ZAIDI Referring Unavailable PADDY ZAIDI Primary Care Unavailable PADDY ZAIDI Referring Unavailable PADDY ZAIDI Primary Care Unavailable PADDY ZAIDI Attending Unavailable HEVER HERNANDEZ Referring Unavailable Allergies Allergy Classification Reported Allergen(s) Allergy Type Date of Onset Reaction(s) Facility (20 sources) Aspirin / oxyCODONE; Translations: [OXYCODONE-ASPIR IN] Drug Allergy 12-17-2004 Mental Status Change [facility] Work Phone: (15 sources) Aspirin; Translations: [ASPIRIN] Drug Allergy 04-19-2018 Unknown [facility] (15 sources) oxyCODONE; Translations: [OXYCODONE] Drug Allergy 04-19-2018 Other: See Comments [facility] Medications Current Medications Medication Drug Class(es) Dates Sig (Normalized) Sig (Original) amoxicillin 875 mg / clavulanate 125 mg oral tablet (1 source) Penicillin-class Antibacterial Start: 05-25-2022 End: 05-30-2022 take 1 tablet by mouth twice daily amoxicillin-clav ulanic acid (AUGMENTIN) 875-125 mg per tablet Take 1 tablet by mouth twice daily for 5 days. 10 tablet 0 05/25/2022 05/30/2022 Active Completed/Discontinued Medications Medication Drug Class(es) Dates Sig (Normalized) Sig (Original) apixaban 5 mg oral tablet (15 sources) Factor Xa Inhibitor Start: 12-18-2021 End: 05-21-2022 take 1 tablet by mouth twice daily ELIQUIS 5 mg tab(s) Take 1 tablet by mouth twice daily. 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 mood] Onset: 02-01-2017 02-01-2017 Chronic Anxiety disorders (16 sources) Anxiety; Translations: [Anxiety disorder, unspecified] Onset: 12-23-2021 12-23-2021 Chronic Cancer of prostate (15 sources) Malignant tumor of prostate; Translations: [Malignant neoplasm of prostate] Onset: 12-23-2021 12-23-2021 Chronic Cardiac dysrhythmias (20 sources) Paroxysmal ventricular tachycardia; Translations: [Ventricular tachycardia] Onset: 01-11-2005 01-11-2005 Chronic Chronic obstructive pulmonary disease and bronchiectasis (20 sources) Acute exacerbation of chronic obstructive airways disease with asthma; Translations: [Chronic obstructive pulmonary disease with (acute) exacerbation] Onset: 11-19-2015 12-23-2021 Chronic Complication of device; implant or graft (16 sources) Disorder of coronary artery; Translations: [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] Onset: 12-23-2021 12-23-2021 Chronic Coronary atherosclerosis and other heart disease (20 sources) Disorder of cardiovascular system; Translations: [Atherosclerotic heart disease of [place] coronary artery without angina pectoris] Onset: 12-17-2004 12-19-2014 Chronic Disorders of lipid metabolism (20 sources) Hyperlipidemia; Translations: [Hyperlipidemia, unspecified] Onset: 12-17-2004 12-19-2014 Chronic Esophageal disorders (15 sources) Gastroesophageal reflux disease; Translations: [Gastro-esophageal reflux disease without esophagitis] Onset: 12-23-2021 12-23-2021 Chronic Essential hypertension (20 sources) Essential hypertension; Translations: [Essential (primary) hypertension] Onset: 12-17-2004 12-19-2014 Chronic Hypertension with complications and secondary hypertension (1 source) Hypertensive urgency ; Translations: [Hypertensive urgency] Chronic Mood disorders (20 sources) Depressive disorder; Translations: [Depression] Onset: 12-27-2008 12-27-2008 Chronic Other aftercare (1 source) Post-discharge follow-up; Translations: [Encounter for follow-up examination after completed treatment for conditions other than malignant neoplasm] Episodic Other circulatory disease (16 sources) History of angioplasty; Translations: [Peripheral vascular angioplasty status with implants and grafts] Onset: 12-23-2021 12-23-2021 Chronic Other male genital disorders (1 source) Secondary erectile dysfunction; Translations: [Male erectile dysfunction, unspecified] Chronic Other nervous system disorders (4 sources) Polyneuropathy; Translations: [Polyneuropathy, unspecified] Chronic Other nervous system disorders (20 sources) Idiopathic peripheral neuropathy; Translations: [Hereditary and idiopathic neuropathy, unspecified] Onset: 06-22-2021 06-22-2021 Chronic Other upper respiratory disease (15 sources) Paralysis of left vocal cord; Translations: [Paralysis of vocal cords and larynx, unilateral] Onset: 12-23-2021 12-23-2021 Chronic Other upper respiratory disease (15 sources) Paralysis of larynx; Translations: [Paralysis of vocal cords and larynx, unspecified] Onset: 01-04-2017 12-23-2021 Chronic Paralysis (15 sources) Right hemiparesis; Translations: [Hemiplegia, unspecified affecting right dominant side] Onset: 12-23-2021 12-23-2021 Chronic Residual codes; unclassified (20 sources) Obstructive sleep apnea syndrome; Translations: [Obstructive sleep apnea (adult) (pediatric)] Onset: 12-19-2014 12-19-2014 Chronic Thyroid disorders (20 sources) Acquired hypothyroidism; Translations: [Hypothyroidism, unspecified] Onset: 09-26-2012 03-30-2018 Chronic Past or Other Problems Problem Classification Problem Date Documented Da te Episodic/Chronic Fluid and electrolyte disorders (19 sources) Hypokalemia; Translations: [Hypokalemia] Onset: Episodic Immunizations and screening for infectious disease (16 sources) Patient encounter status; Translations: [Encounter for immunization] Onset: 12-23-2021 Episodic Malaise and fatigue (15 sources) Asthenia; Translations: [Weakness] Onset: 2 12-23-2021 Episodic Other connective tissue disease (15 sources) Neurological symptom; Translations: [Unspecified symptoms and signs involving the nervous system] Onset: 2 12-23-2021 Episodic Other gastrointestinal disorders (15 sources) Dysphagia; Translations: [Dysphagia, unspecified] Onset: 2 12-23-2021 Episodic Other lower respiratory disease (20 sources) Dyspnea; Translations: [Dyspnea, unspecified] Onset: 0 09-04-2009 Episodic Other lower respiratory disease (1 source) Shortness of breath; Translations: [SOB (shortness of breath)] Onset: 3 Episodic Other nervous system disorders (15 sources) Dysarthria; Translations: [Dysarthria and anarthria] Onset: 2 12-23-2021 Episodic Other nervous system disorders (15 sources) Acute postoperative pain; Translations: [Other acute postprocedural pain] Onset: 8 12-23-2021 Episodic Other screening for suspected conditions (not mental disorders or infectious disease) (15 sources) Electrocardiogram abnormal; Translations: [Abnormal electrocardiogram [ECG] [EKG]] Onset: 8 12-23-2021 Episodic Other upper respiratory disease (15 sources) Hoarse; Translations: [Dysphonia] Onset: 7 12-23-2021 Episodic Pneumonia (except that caused by tuberculosis or sexually transmitted disease) (18 sources) Pneumococcal pneumonia; Translations: [Pneumonia due to Streptococcus pneumoniae] Onset: 2 12-23-2021 Episodic Results Test Name Value Interpretation Reference Range Facil ity Vital Signs Date Time Vital Sign Value Performing Clinician Malaika bains 06-02-2022 12:58-0400 Body height 180.3 cm Hever Hernandez APRN.SHANNAN Work Phone: [facility] 06-02-2022 12:58-0400 Body weight 92.99 kg Hever Hernandez APRN.CNP Work Phone: [facility] 06-02-2022 12:58-0400 Diastolic blood pressure 68 mm[Hg] Hever Pamela CORDWAINER.PSYCHIATRIC NP Work Phone: [facility] 06-02-2022 12:58-0400 Heart rate 84 /min Hever Pamela CORDWAINER.PSYCHIATRIC NP Work Phone: [facility] 06-02-2022 12:58-0400 SaO2% (BldA) [Mass fraction] 97 % Hever Pamela CORDWAINER.PSYCHIATRIC NP Work Phone: [facility] 06-02-2022 12:58-0400 Systolic blood pressure 134 mm[Hg] Hever Pamela CORDWAINER.PSYCHIATRIC NP Work Phone: [facility] 05-21-2022 16:12-0400 Body height 180.3 cm Paddy Zaidi MD Work Phone: [facility] 05-21-2022 16:12-0400 Body temperature 98.4 [degF] Paddy Zaidi MD Work Phone: [facility] 05-21-2022 16:12-0400 Body weight 88.22 kg Paddy Zaidi MD Work Phone: [facility] 05-21-2022 16:12-0400 Diastolic blood pressure 83 mm[Hg] Paddy Zaidi MD Work Phone: [facility] 05-21-2022 16:12-0400 Heart rate 71 /min Paddy Zaidi MD Work Phone: [facility] 05-21-2022 16:12-0400 Respiratory rate 16 /min Paddy Zaidi MD Work Phone: [facility] 05-21-2022 16:12-0400 SaO2% (BldA) [Mass fraction] 93 % Paddy Zaidi MD Work Phone: [facility] 05-21-2022 16:12-0400 Systolic blood pressure 137 mm[Hg] Paddy Zaidi MD Work Phone: [facility] 12-23-2021 11:19-0500 Body height 180.3 cm Paddy Zaidi MD Work Phone: [facility] 12-23-2021 11:19-0500 Body temperature 98.4 [degF] Paddy Zaidi MD Work Phone: [facility] 12-23-2021 11:19-0500 Body weight 87.09 kg Paddy Zaidi MD Work Phone: [facility] 12-23-2021 11:19-0500 Diastolic blood pressure 54 mm[Hg] Paddy Zaidi MD Work Phone: [facility] 12-23-2021 11:19-0500 Heart rate 87 /min Paddy Zaidi MD Work Phone: [facility] 12-23-2021 11:19-0500 SaO2% (BldA) [Mass fraction] 87 % Paddy Zaidi MD Work Phone: [facility] 12-23-2021 11:19-0500 Systolic blood pressure 91 mm[Hg] Paddy Zaidi MD Work Phone: [facility] 06-22-2021 13:25-0400 Diastolic blood pressure 80 mm[Hg] Hever Pamela CORDWAINER.PSYCHIATRIC NP Work Phone: [facility] 06-22-2021 13:25-0400 Systolic blood pressure 138 mm[Hg] Hever Pamela CORDWAINER.PSYCHIATRIC NP Work Phone: [facility] 06-22-2021 12:58-0400 Body height 180.3 cm Hever Pamela CORDWAINER.PSYCHIATRIC NP Work Phone: [facility] 06-22-2021 12:58-0400 Body weight 88.36 kg Hever Pamela CORDWAINER.PSYCHIATRIC NP Work Phone: [facility] 06-22-2021 12:58-0400 Heart rate 65 /min Hever Pamela CORDWAINER.PSYCHIATRIC NP Work Phone: [facility] Encounters Encounter Date Encounter Type Care Provider Facility Start: 12-28-2022 Telephone encounter Paddy Zaidi MD Work Phone: Family Practice Procedures Date Procedure Procedure Detail Performing Clinician Start: 05-21-2022 Blood count complete automated Paddy Zaidi MD Work Phone: Start: 05-21-2022 Lipid panel Paddy Zaidi MD Work Phone: Start: 05-21-2022 Ecg routine ecg w/le ast 12 lds i&r only Paddy Zaidi MD Work Phone: Plan of Treatment Date Care Activity Detail Author Start: 05-21-2025 DIABETES SCREEN DIABETES SCREEN [facility] Start: 05-21-2025 Diabetes Screening Diabetes Screenin g [facility] Start: 09-14-2024 DIABETES SCREEN DIABETES SCREEN [facility] Start: 12-18-2023 DIABETES SCREEN DIABETES SCREEN [facility] Start: 05-22-2023 Hepatitis B surface antibody level LDL CHOLESTEROL [facility] Start: 12-23-2022 SHINGRIX VACCINE (1 of 2) SHINGRIX VACCINE (1 of 2) [facility] Immunizations Immunization Date Immunization Notes Care Provider Fa [facility] 12-17-2020 influenza, high-dose , quadrivalent vaccine (FLUZONE HIGH DOSE QUADRIVALENT) Paddy Zaidi MD Work Phone: [facility] 12-17-2020 influenza virus vacc ine, unspecified formulation Paddy Zaidi MD Work Phone: [facility] 03-28-2020 COVID-19 vaccine, fu ll dose (MODERNA) Paddy Zaidi MD Work Phone: [facility] 02-29-2020 COVID-19 vaccine, fu ll dose (MODERNA) Paddy Zaidi MD Work Phone: [facility] 07-31-2019 pneumococcal polysaccharide vaccine, 23 valent Paddy Zaidi MD Work Phone: [facility] 07-31-2019 pneumococcal vaccine , unspecified formulation Paddy Zaidi MD Work Phone: [facility] 01-12-2018 influenza, high dose seasonal, preservative-free Paddy Zaidi MD Work Phone: [facility] 01-12-2018 influenza, seasonal, injectable Paddy Zaidi MD Work Phone: [facility] 01-12-2018 influenza, seasonal, injectable, preservative free Paddy Zaidi MD Work Phone: [facility] 01-12-2018 pneumococcal polysaccharide vaccine, 23 valent Paddy Zaidi MD Work Phone: [facility] 01-12-2018 pneumococcal vaccine , unspecified formulation Paddy Zaidi MD Work Phone: [facility] 03-31-2017 pneumococcal conjuga te vaccine, 13 valent Paddy Zaidi MD Work Phone: [facility] 12-08-2016 influenza, seasonal, injectable Paddy Zaidi MD Work Phone: [facility] 12-08-2016 influenza, seasonal, injectable, preservative free Paddy Zaidi MD Work Phone: [facility] 11-27-2016 influenza, high dose seasonal, preservative-free Paddy Zaidi MD Work Phone: [facility] Work Phone: 12-01-2013 influenza virus vacc ine, whole virus Paddy Zaidi MD Work Phone: [facility] 11-23-2012 influenza virus vacc ine, unspecified formulation Paddy Zaidi MD Work Phone: [facility] 01-16-2010 pneumococcal polysaccharide vaccine, 23 valent Paddy Zaidi MD Work Phone: [facility] 12-09-2009 influenza virus vacc ine, unspecified formulation Paddy Zaidi MD Work Phone: [facility] 12-23-2008 influenza virus vacc ine, unspecified formulation Paddy Zaidi MD Work Phone: [facility] Work Phone: Payers Date Payer Category Payer Medicare [id number] 2021 Medicare [employer] MEDICARE A ETNA MEDICARE PPO [id number] 2021-Present [phone] [address] [place] [address] PPO [id number] 2021 Medicare [id number] 2009 Medicare [employer] MEDICARE A ETNA MEDICARE PPO [id number] 2009-Present [phone] [address] [place] [address] PPO [id number] Social History Date Type Detail Facility Start: 02-01-2017 End: 12-23-2021 Tobacco smoking status NHIS Ex-smoker [facility] End: 10-16-1992 History of tobacco use Current smoker [facility] End: 10-16-1992 History of tobacco use Cigarette Smoker [facility] Start: 12-17-2020 End: 06-02-2022 Alcohol intake Current non-drinker of alcohol (finding) [facility] Start: 1940 Sex Assigned At Not on file [facility] Start: 06-12-2021 End: 12-23-2021 Exposure to SARS-CoV-2 (event) Not sure [facility] Start: 02-01-2017 End: 07-20-2022 Cigarettes smoked current (pack per day) - Reported 2 [facility] Start: 02-01-2017 End: 12-23-2021 Tobacco use and exposure Smokeless tobacco non-user [facility] Start: 06-02-2022 End: 07-20-2022 Tobacco use panel [facility] Adult Depression Scr eening Assessment 0 [facility] Clinical Notes 05-21-2021 to 02-05-2023 Telephone Encounter - ConferGe - 12/28/2022 1:00 PM ESTTelephone Encounter - ConferGe - 12/28/2022 8:14 AM ESTTelephone Encounter - ConferGe - 09/23/2022 8:10 AM EDT Note Date & Type Note Facility 02-05-2023 Note HNO ID: [id number] Author: Lydia Diaz Service: ? Author Type: ? 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 N/A Navigation Signature: Lydia Diaz February 05, 2023 1:04 PM Allergies As of Date: 02/05/2023 Noted Allergy Reaction ASPIRIN 04/19/2018 16 - Unknown OXYCODONE 04/19/2018 14 - Other: See Comments PERCODAN (OXYCODONE-ASPIRIN) 12/17/2004 1 - Mental Status Change Date Reviewed: 06/02/2022 Reviewed by: Talia Ambriz LPN - Fully Assessed Reason for Visit: Population Health Navigation Outreach [3910] Cmt: [employer] care gaps Prescriptions as of 02/05/2023 - escitalopram oxalate (LEXAPRO) 10 mg tablet Take 1 tablet by mouth once daily - levothyroxine (SYNTHROID) 50 mcg tablet Take 1 tablet by mouth once daily. - atorvastatin (LIPITOR) 40 mg tablet Take 1 tablet by mouth once daily. - gabapentin (NEURONTIN) 100 mg capsule Take 2 capsules by mouth twice daily for 180 days. For neuropathy - spironolactone (ALDACTONE) 25 mg tablet Take 1 tablet by mouth once daily. - atenolol (TENORMIN) 50 mg tablet Take 0.5 tablets by mouth once daily. - ELIQUIS 5 mg tab(s) Take 1 tablet by mouth twice daily. - mirtazapine (REMERON) 30 mg tablet (Discontinued) Take 1 tablet by mouth daily at bedtime. - aspirin 81 mg chewable tablet Take 81 mg by mouth once daily. - nitroglycerin sublingual (NITROQUICK) 0.3 mg SL tablet Dissolve 1 tablet under the tongue every 5 minutes as needed. 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] 12/17/2004 Essential hypertension [I10] 12/17/2004 Hyperlipidemia [E78.5] 12/17/2004 PAROX VENTRIC TACHYCARD [I47.29] 01/11/2005 Depression [F32.A] 12/27/2008 Dyspnea [R06.00] 09/04/2009 Acquired hypothyroidism [E03.9] 09/26/2012 Obstructive sleep apnea on CPAP [G47.33] 12/19/2014 Adjustment disorder with mixed anxiety and depr*02/01/2017 Pure hypercholesterolemia [E78.00] 06/12/2018 Idiopathic peripheral neuropathy [G60.9] 06/22/2021 Abnormal electrocardiogram [R94.31] 10/19/2017 Anxiety [F41.9] 12/23/2021 Atherosclerotic heart disease of [place] coronar*10/19/2017 Cerebrovascular accident (CVA) (HCC) [I63.9] 12/23/2021 Chronic obstructive asthma with exacerbation (H*12/18/2021 Dysarthria [R47.1] 12/23/2021 Dysphagia [R13.10] 12/23/2021 Encounter for immunization [Z23] 01/12/2018 Gastroesophageal reflux disease [K21.9] 12/23/2021 Hoarseness [R49.0] 11/05/2016 Hypokalemia [E87.6] 12/23/2021 Malignant neoplasm of prostate (HCC) [C61] 12/23/2021 Moderate COPD (chronic obstructive pulmonary di*11/19/2015 Myocardial infarction (HCC) [I21.9] 12/18/2021 Neurological symptoms [R29.90] 12/23/2021 Other acute postprocedural pain [G89.18] 09/13/2017 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] 12/23/2021 Paralysis of vocal cords and larynx, unspecifie*01/04/2017 Pneumonia due to Streptococcus pneumoniae (HCC)*12/18/2021 Right hemiparesis (HCC) [G81.91] 12/23/2021 Weakness [R53.1] 06/05/2021 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 S/P angioplasty with stent [Z95.820] 12/23/2021 Encounter Status:Closed by LYDIA DIAZ on 02/05/23 [facility] 12-28-2022 Miscellaneous Notes Order signed by PCP and faxed. Received annual oxygen prescription order form (renewal date 12/08/21) from [employer]. Placed in provider's inbox for review. [place] fax [phone] documented in this encounter [facility] 12-09-2022 Note HNO ID: [id number] Author: Lydia Diaz Service: ? Author Type: ? Type: Progress Notes Filed: 12/09/2022 4:50 PM Note Text: POPULATION HEALTH NAVIGATION OUTREACH Action/FYI Pt due for annual wellness Called and spoke with pt Scheduled annual wellness for 12/16/22 Patient Identified by Name and : YES, via phone Outreach Outcome/Action Spoke to patient / parent / legal guardian: Patient scheduled Did you use a PCP flex slot to schedule this appointment? No Reason for Outreach Care Gap or Scheduling/Wellness visits Payer: Payor: [employer] MEDICARE / Plan: [employer] MEDICARE PPO / Product Type: PPO / Care Gap Reviewed:: Annual Wellness visit Reminder: Reminder note to check Health Maintenance for items below Health Maintenance items due: Spirometry Never done RSV Vaccine(1 - 1-dose 60+ series) Never done Advance Directive Discussion Never done Influenza Vaccine(1) due on 10/08/2022 Covid-19 Vaccine( season) due on 10/08/2022 Navigation Signature: Lydia Diaz December 09, 2022 4:49 PM [facility] 12-09-2022 Note Patient Outreach (DARIEN TNAV) ARTURO PEDERSEN ([id number]) 1940 Date Time Provider Department 12/09/22 LYDIA DIAZ (JOANNE NETNAV During your visit today, we recorded the following information about you: Lydia Daiz 12/09/2022 4:50 PM Signed POPULATION HEALTH NAVIGATION OUTREACH Action/ Pt due for annual wellness Called and spoke with pt Scheduled annual wellness for 12/16/22 Patient Identified by Name and : YES, via phone Outreach Outcome/Action Spoke to patient / parent / legal guardian: Patient scheduled Did you use a PCP flex slot to schedule this appointment? No Reason for Outreach Care Gap or Scheduling/Wellness visits Payer: Payor: [employer] MEDICARE / Plan: [employer] MEDICARE PPO / Product Type: PPO / Care Gap Reviewed:: Annual Wellness visit Reminder: Reminder note to check Health Maintenance for items below Health Maintenance items due: Spirometry Never done RSV Vaccine(1 - 1-dose 60+ series) Never done Advance Directive Discussion Never done Influenza Vaccine(1) due on 10/08/2022 Covid-19 Vaccine( season) due on 10/08/2022 Navigation Signature: Lydia Diaz December 09, 2022 4:49 PM Allergies As of Date: 12/09/2022 Noted Allergy Reaction ASPIRIN 04/19/2018 16 - Unknown OXYCODONE 04/19/2018 14 - Other: See Comments PERCODAN (OXYCODONE-ASPIRIN) 12/17/2004 1 - Mental Status Change Date Reviewed: 06/02/2022 Reviewed by: Talia Ambriz LPN - Fully Assessed Reason for Visit: Population Health Navigation Outreach [3910] Cmt: [employer] care gaps Prescriptions as of 12/09/2022 - levothyroxine (SYNTHROID) 50 mcg tablet Take 1 tablet by mouth once daily. - atorvastatin (LIPITOR) 40 mg tablet Take 1 tablet by mouth once daily. - escitalopram oxalate (LEXAPRO) 10 mg tablet Take 1 tablet by mouth once daily. - gabapentin (NEURONTIN) 100 mg capsule Take 2 capsules by mouth twice daily for 180 days. For neuropathy - spironolactone (ALDACTONE) 25 mg tablet Take 1 tablet by mouth once daily. - atenolol (TENORMIN) 50 mg tablet Take 0.5 tablets by mouth once daily. - ELIQUIS 5 mg tab(s) Take 1 tablet by mouth twice daily. - mirtazapine (REMERON) 30 mg tablet (Discontinued) Take 1 tablet by mouth daily at bedtime. - aspirin 81 mg chewable tablet Take 81 mg by mouth once daily. - nitroglycerin sublingual (NITROQUICK) 0.3 mg SL tablet Dissolve 1 tablet under the tongue every 5 minutes as needed. 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] 12/17/2004 Essential hypertension [I10] 12/17/2004 Hyperlipidemia [E78.5] 12/17/2004 PAROX VENTRIC TACHYCARD [I47.29] 01/11/2005 Depression [F32.A] 12/27/2008 Dyspnea [R06.00] 09/04/2009 Acquired hypothyroidism [E03.9] 09/26/2012 Obstructive sleep apnea on CPAP [G47.33] 12/19/2014 Adjustment disorder with mixed anxiety and depr*02/01/2017 Pure hypercholesterolemia [E78.00] 06/12/2018 Idiopathic peripheral neuropathy [G60.9] 06/22/2021 Abnormal electrocardiogram [R94.31] 10/19/2017 Anxiety [F41.9] 12/23/2021 Atherosclerotic heart disease of [place] coronar*10/19/2017 Cerebrovascular accident (CVA) (HCC) [I63.9] 12/23/2021 Chronic obstructive asthma with exacerbation (H*12/18/2021 Dysarthria [R47.1] 12/23/2021 Dysphagia [R13.10] 12/23/2021 Encounter for immunization [Z23] 01/12/2018 Gastroesophageal reflux disease [K21.9] 12/23/2021 Hoarseness [R49.0] 11/05/2016 Hypokalemia [E87.6] 12/23/2021 Malignant neoplasm of prostate (HCC) [C61] 12/23/2021 Moderate COPD (chronic obstructive pulmonary di*11/19/2015 Myocardial infarction (HCC) [I21.9] 12/18/2021 Neurological symptoms [R29.90] 12/23/2021 Other acute postprocedural pain [G89.18] 09/13/2017 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] 12/23/2021 Paralysis of vocal cords and larynx, unspecifie*01/04/2017 Pneumonia due to Streptococcus pneumoniae (HCC)*12/18/2021 Right hemiparesis (HCC) [G81.91] 12/23/2021 Weakness [R53.1] 06/05/2021 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 S/P angioplasty with stent [Z95.820] 12/23/2021 Encounter Status:Closed by LYDIA DIAZ on 12/09/22 [facility] 09-23-2022 Miscellaneous Notes Received ED visit summary and xrays for lower extremity injusry from [facility] ED. Placed in provider's inbox for review. Route to MA scanning. documented in this encounter [facility] 08-20-2022 Miscellaneous Notes Addended by: TALIA AMBRIZ on: 08/20/2022 04:55 PM Modules accepted: Orders Last office note states that Lexapro was stopped by patient due to side effects (ED). Is patient taking medication again. Patient came in to request a refill of his meds. He needs atorvastatin,eliquis,escitalopram oxalate (out of this completely) ,gabapentin,levothyroxine potassium chloride,spironolactone. Please advise documented in this encounter [facility] 06-22-2022 Miscellaneous Notes LM for patient to call office. Please call patient and remind him to get his repeat chest xray completed in the next week, order placed. Hever Hernandez APRN.SHANNAN documented in this encounter [facility] 06-02-2022 Note HNO ID: [id number] Author: Hever Hernandez APRN.SHANNAN Service: ? Author Type: Nurse Practitioner Type: Progress Notes Filed: 06/02/2022 2:15 PM Note Text: This note was created using Emulateriter. Subjective Arturo Pedersen is a 81 year old male. Patient here for follow-up on pneumonia. Saw PCP on 05/21 for SOB, chest xray showed New atelectasis and/or early infiltrate in the right middle lobe. Follow-up to document resolution . Patient was treated with Augmentin and doxycycline x 5 days. Patient reports feeling much better. Had a little wheezing a couple days ago, but not since then. No cough/SOB/fevers. Patient also has new onset erectile dysfunction, difficulty getting an erection. States he never had this problem before his a year ago. He started reading up on his medications and saw that this could be a side effect of the Lexapro so he stopped taking it a week ago with no improvement. No change in mood, denies any current depression/anxiety symptoms and would like to remain off the medication for now. Review of Systems Constitutional: Negative for fever. Respiratory: Positive for wheezing. Negative for cough, chest tightness and shortness of breath. Allergic/Immunologic: Negative for immunocompromised state. PAST MEDICAL HISTORY Diagnosis Date CABG CVA (cerebral infarction) 04/16/14 Depression GERD (gastroesophageal reflux disease) Neuropathy Other and unspecified hyperlipidemia Prostate cancer (HCC) Unspecified essential hypertension PAST SURGICAL HISTORY Procedure Laterality Date ARTHRP ACETBLR/PROX FEM PROSTC AGRFT/ALGRFT CABG (2) VEIN GRAFTS AND ARTERIAL GRAFT(S PAST SURGICAL HISTORY OF 07/24/2018 removal of hardware, left thr radiation for prostate cancer TREAT HIP FRACTURE(S) Left 11/2017 hip screw placed [facility] Aspirin, Oxycodone, and Percodan [Oxycodone-Aspirin] MEDICATIONS atorvastatin (LIPITOR) 40 mg tablet Take 1 tablet by mouth once daily. gabapentin (NEURONTIN) 100 mg capsule Take 2 capsules by mouth twice daily for 180 days. For neuropathy spironolactone (ALDACTONE) 25 mg tablet Take 1 tablet by mouth once daily. escitalopram oxalate (LEXAPRO) 20 mg tablet Take 1 tablet by mouth once daily. atenolol (TENORMIN) 50 mg tablet Take 0.5 tablets by mouth once daily. levothyroxine (SYNTHROID) 50 mcg tablet Take 1 tablet by mouth once daily. potassium chloride (K-TAB) 10 mEq tablet Take 2 tablets by mouth every morning. ELIQUIS 5 mg tab(s) Take 1 tablet by mouth twice daily. aspirin 81 mg chewable tablet Take 81 mg by mouth once daily. nitroglycerin sublingual (NITROQUICK) 0.3 mg SL tablet Dissolve 1 tablet under the tongue every 5 minutes as needed. [DISCONTINUED] mirtazapine (REMERON) 30 mg tablet Take 1 tablet by mouth daily at bedtime. FAMILY HISTORY Problem Relation Age of Onset Heart Father Prostate Cancer Father Alzheimer's Disease Mother Social History Tobacco Use Smoking status: Former Packs/day: 2.00 Years: 25.00 Pack years: 50.00 Types: Cigarettes Quit date: 10/16/1992 Years since quittin.6 Smokeless tobacco: Never Vaping Use Vaping Use: Never used Substance Use Topics Alcohol use: No Drug use: No Objective BP 134/68 Pulse 84 Ht 180.3 cm (5' 10.98 ) Wt 93 kg (205 lb) BMI 28.60 kg/m? Physical Exam Constitutional: Appearance: He is not ill-appearing. Cardiovascular: Rate and Rhythm: Normal rate and regular rhythm. Pulmonary: Breath sounds: Rales present. No wheezing or rhonchi. Comments: No cough noted Psychiatric: Mood and Affect: Mood normal. Behavior: Behavior normal. Thought Content: Thought content normal. Assessment and Plan 1. Pneumonia of right middle lobe due to infectious organism Symptoms resolved, still some crackles on exam. Repeat chest XR in 1 month to ensure resolution. Return if any new or worsening symptoms. - XR CHEST 2V FRONTAL/LAT 2. ED (erectile dysfunction) of organic origin Discussed ED medications with Dr. Zaidi, patient is not a candidate to his heart history. Offered urology consult for consideration of other options (ie pump), patient declined at this time. 3. Adjustment disorder with mixed anxiety and depressed mood Patient reports mood is stable and would like to remain off the Lexapro. He stopped it a week ago due to possible ED side effects. Follow up for any new or worsening depression/anxiety. Hever Hernandez APRN.[facility] 06-02-2022 History of Present illness Narrative This note was created using Emulateriter. Subjective Arturo Pedersen is a 81 year old male. Patient here for follow-up on pneumonia. Saw PCP on 05/21 for SOB, chest xray showed New atelectasis and/or early infiltrate in the right middle lobe. Follow-up to document resolution . Patient was treated with Augmentin and doxycycline x 5 days. Patient reports feeling much better. Had a little wheezing a couple days ago, but not since then. No cough/SOB/fevers. Patient also has new onset erectile dysfunction, difficulty getting an erection. States he never had this problem before his a year ago. He started reading up on his medications and saw that this could be a side effect of the Lexapro so he stopped taking it a week ago with no improvement. No change in mood, denies any current depression/anxiety symptoms and would like to remain off the medication for now. Review of Systems Constitutional: Negative for fever. Respiratory: Positive for wheezing. Negative for cough, chest tightness and shortness of breath. Allergic/Immunologic: Negative for immunocompromised state. PAST MEDICAL HISTORY Diagnosis Date CABG CVA (cerebral infarction) 04/16/14 Depression GERD (gastroesophageal reflux disease) Neuropathy Other and unspecified hyperlipidemia Prostate cancer (HCC) Unspecified essential hypertension PAST SURGICAL HISTORY Procedure Laterality Date ARTHRP ACETBLR/PROX FEM PROSTC AGRFT/ALGRFT CABG (2) VEIN GRAFTS & ARTERIAL GRAFT(S PAST SURGICAL HISTORY OF 07/24/2018 removal of hardware, left thr radiation for prostate cancer TREAT HIP FRACTURE(S) Left 11/2017 hip screw placed [facility] Aspirin, Oxycodone, and Percodan [Oxycodone-Aspirin] MEDICATIONS atorvastatin (LIPITOR) 40 mg tablet Take 1 tablet by mouth once daily. gabapentin (NEURONTIN) 100 mg capsule Take 2 capsules by mouth twice daily for 180 days. For neuropathy spironolactone (ALDACTONE) 25 mg tablet Take 1 tablet by mouth once daily. escitalopram oxalate (LEXAPRO) 20 mg tablet Take 1 tablet by mouth once daily. atenolol (TENORMIN) 50 mg tablet Take 0.5 tablets by mouth once daily. levothyroxine (SYNTHROID) 50 mcg tablet Take 1 tablet by mouth once daily. potassium chloride (K-TAB) 10 mEq tablet Take 2 tablets by mouth every morning. ELIQUIS 5 mg tab(s) Take 1 tablet by mouth twice daily. aspirin 81 mg chewable tablet Take 81 mg by mouth once daily. nitroglycerin sublingual (NITROQUICK) 0.3 mg SL tablet Dissolve 1 tablet under the tongue every 5 minutes as needed. [DISCONTINUED] mirtazapine (REMERON) 30 mg tablet Take 1 tablet by mouth daily at bedtime. FAMILY HISTORY Problem Relation Age of Onset Heart Father Prostate Cancer Father Alzheimer's Disease Mother Social History Tobacco Use Smoking status: Former Packs/day: 2.00 Years: 25.00 Pack years: 50.00 Types: Cigarettes Quit date: 10/16/1992 Years since quittin.6 Smokeless tobacco: Never Vaping Use Vaping Use: Never used Substance Use Topics Alcohol use: No Drug use: No Objective BP 134/68 Pulse 84 Ht 180.3 cm (5' 10.98 ) Wt 93 kg (205 lb) BMI 28.60 kg/m Physical Exam Constitutional: Appearance: He is not ill-appearing. Cardiovascular: Rate and Rhythm: Normal rate and regular rhythm. Pulmonary: Breath sounds: Rales present. No wheezing or rhonchi. Comments: No cough noted Psychiatric: Mood and Affect: Mood normal. Behavior: Behavior normal. Thought Content: Thought content normal. Assessment and Plan 1. Pneumonia of right middle lobe due to infectious organism Symptoms resolved, still some crackles on exam. Repeat chest XR in 1 month to ensure resolution. Return if any new or worsening symptoms. - XR CHEST 2V FRONTAL/LAT 2. ED (erectile dysfunction) of organic origin Discussed ED medications with Dr. Zaidi, patient is not a candidate to his heart history. Offered urology consult for consideration of other options (ie pump), patient declined at this time. 3. Adjustment disorder with mixed anxiety and depressed mood Patient reports mood is stable and would like to remain off the Lexapro. He stopped it a week ago due to possible ED side effects. Follow up for any new or worsening depression/anxiety. Hever Hernandez APRN.SHANNAN documented in this encounter [facility] 05-26-2022 Miscellaneous Notes Notified patient-he agrees to plan. Scheduled f/u. Patient verbalizes understanding and has no other questions or concerns at this time. Violetta Biswas RN Reason for Disposition Health Information question, no triage required and triager able to answer question Protocols used: Information Only Call - No [id number] Attempted to reach patient. Left message to call back. Let patient know that his chest xray showed a possible early pneumonia and Dr. Zaidi would like to treat him. I sent two antibiotics to the pharmacy for him to take for 5 days. Please schedule follow-up appointment in person with Dr. Zaidi or me in 1 week to re-evaluate how he's doing. Hever Hernandez APRN.CNP documented in this encounter [facility] 05-22-2022 Note HNO ID: [id number] Author: RT Sravan(R) Service: ? Author Type: Technologist Type: Progress Notes Filed: 05/22/2022 11:33 AM Note Text: Radiology Service Progress Note PATIENT NAME: Arturo Pedersen DATE OF SERVICE: May 22, 2022 TIME: 11:25 AM PATIENT IDENTITY VERIFICATION COMPLETED USING TWO (2) IDENTIFIERS: Name and Date of confirmed by patient verbally. FALL SCREENING: Has the patient had 2 falls in the last year or 1 fall with injury or currently using an Ambulatory Assistive Device (Walker, Cane, Wheelchair, Crutches, etc.)? No PATIENT GENDER DATA: Male PATIENT RELEVANT IMPLANT DATA REVIEWED: Not Applicable RADIOLOGY DEPARTMENT: General X-ray: Exam(s) Completed: Chest X-Ray PERIPHERAL IV DATA: Not applicable SIGNED BY: RT Sravan(R) May 22, 2022 11:25 AM [facility] 05-21-2022 Note HNO ID: [id number] Author: Paddy Zaidi MD Service: ? Author Type: Physician Type: Progress Notes Filed: 05/21/2022 6:22 PM Note Text: CHIEF COMPLAINT Patient presents with: Follow Up HISTORY OF PRESENT ILLNESS Arturo Pedersen is a 81 year old male who presents here today for a follow up. I last saw this patient on . Pt is accompanied by his nephew. CAD / Afib Admitted [facility] Cath/ stent placed, no f/u with cardiology. - Pt notes after walking out to car after eating at [email or web address] restaurant, , Pt feels like he will pass out. - Pt nephew notes he experiences similar episodes when getting out of the car after going to [employer] - Pt checks his blood pressure at home and records good numbers - Pt nephew notes Pt has trouble walking; he has coughing spells - Pt uses two pillows to lay in bed. Cardiac Cath Intervention on 12-16-2021 Cardiac Cath Intervention [facility] Imaging Services [address] [place] [address] Cardiac Cath Intervention MR#: [id number] Acct: [id number] Name: ARTURO PEDERSEN Rep #: [id number] : 1940 81 From: Dallas Muller MD PCP: Dr. Shayne Zaidi MD Status:ADM IN Patient Name: ARTURO PEDERSEN Study Date: 12/16/2021 Performing: Tiago Burden MD Ht: 71 inches 180.34 cm : 1940 Wt: 194.29 lbs 88.13 kg Age: 81 Gender: male BSA: 2.08 PROCEDURE(S) PERFORMED IC12-(93448/C9600)KIRK W/WO PTCA, SINGLE CORONARY ARTERY CLINICAL PROFILE AND CO-MORBIDITIES Indications: Suspected CAD Heart Failure: NYHA Class: 2, Newly Diagnosed: Yes, Heart Failure Type: Diastolic Stress/Imaging Stress/Image Study Performed: No CONCLUSIONS Successful KIRK to distal LM RECOMMENDATIONS DESCRIPTION OF PROCEDURE The patient arrived to the procedure lab. The risks and benefits of the procedure as well as a full description of our services here and current unavailability of surgical backup were fully explained to the patient and/or their significant other prior to the catheterization. The Timeout was completed, verifying the correct patient and procedure. The patient's procedural site was prepped and draped in the usual fashion. Local anesthetic was given subcutaneously to right groin region with Lidocaine 2% Using a modified Seldinger technique, Left Coronary Artery selective angiography was performed in multiple views using a 5 Fr. JL4 catheter. Right Coronary Artery selective angiography was then performed in multiple views using a 5 Fr. 3DRC (Luis) catheter. Saphenous Vein graft to the OM 1 selective angiography was performed in multiple views using a 5 Fr. 3DRC (Luis) catheter. Left internal mammary artery graft to the LAD selective angiography was performed in multiple views using a 5 Fr. 3DRC (Luis) catheter. Arterial sheath was exchanged for a 6 Fr Sheath. XB 3.5 Guide catheter was inserted and engaged into the LCA. BMW Guide wire was advanced to the Circumflex. 3.0 x 8 Emerge Balloon catheter was inserted. Balloon catheter was advanced across lesion in the LM distal PTCA balloon inflated at 8 atms for 17 secs. PTCA balloon inflated at 8 atms for 14 secs. 3.5 x 8 Synergy Drug Eluting stent was inserted. Drug Eluting stent was advanced across the lesion in the LM distal Angiogram performed pre stent deployment. Angiogram performed post stent deployment. 3.5 x 8 NC Euphora Balloon catheter was inserted post stent. Angiogram performed post balloon dilatation. Contrast was injected through the sheath and the Right Iliac and Femoral artery were assessed for possible closure device. INTERVENTION INFORMATION LESION SITE: Left Main (Distal) Lesion Complexity: High/C, chronic total occlusion: No, lesion at bifurcation: No, thrombus present: No, lesion length: 8 mm, culprit lesion: Yes Pre Stenosis: 95 % Pre intervention NAVEEN flow: 3 PROCEDURE: Drug Eluting Stent with pre and post dilatation The stent was deployed into the LCx covering the dLM and oLCx lesions Post Stenosis: 0 % Post intervention NAVEEN flow: 3 Lesion Devices: Cordis 6 Fr XB3.5 100cm Guide Catheter Grey .014 BMW [place] Straight 190cm Chadwick Sci EMERGE MR 3.00x08 BALLOON Chadwick Sci Synergy MR KIRK 3.50x08 Medtronic NC EUPHORA RX 3.5x08 BALLOON COPD/ JONATHAN? CPAP - Pt notes difficulty tolerating his CPAP machine; he notes the pressure is too high Sees coating technician Dr Riley at [facility] A-Fib - Pt is on Eliquis 5 mg (he's not entirely sure he's taking this). Had paroxysmal a fib in hospital REVIEW OF SYSTEMS General: Feels fatigued. , no fever, no chills,. Weight is stable HEENT: No sinus congestion, earache, sore throat. Cardiac: No chest pain, palpitations Resp: No cough, wheeze, shortness of breath GI: No reflux symptoms, food intolerance, bowel changes. : No urinary frequency, dysuria. MS: No pain or joint complaints. PAST MEDICAL HISTO (more content not included)... [facility] 05-21-2022 History of Present illness Narrative CHIEF COMPLAINT Patient presents with: Follow Up HISTORY OF PRESENT ILLNESS Arturo Pedersen is a 81 year old male who presents here today for a follow up. I last saw this patient on . Pt is accompanied by his nephew. CAD / Afib Admitted [facility] Cath/ stent placed, no f/u with cardiology. - Pt notes after walking out to car after eating at [email or web address] restaurant, , Pt feels like he will pass out. - Pt nephew notes he experiences similar episodes when getting out of the car after going to [employer] - Pt checks his blood pressure at home and records good numbers - Pt nephew notes Pt has trouble walking; he has coughing spells - Pt uses two pillows to lay in bed. Cardiac Cath Intervention on 12-16-2021 Cardiac Cath Intervention [facility] Imaging Services [address] [place] [address] Cardiac Cath Intervention MR#: [id number] Acct: [id number] Name: ARTURO PEDERSEN Rep #: [id number] : 1940 81 From: Dallas Muller MD PCP: Dr. Shayne Zaidi MD Status:ADM IN Patient Name: ARTURO PEDERSEN Study Date: 12/16/2021 Performing: Tiago Burden MD Ht: 71 inches 180.34 cm : 1940 Wt: 194.29 lbs 88.13 kg Age: 81 Gender: male BSA: 2.08 PROCEDURE(S) PERFORMED IC12-(91274/C9600)KIRK W/WO PTCA, SINGLE CORONARY ARTERY CLINICAL PROFILE AND CO-MORBIDITIES Indications: Suspected CAD Heart Failure: NYHA Class: 2, Newly Diagnosed: Yes, Heart Failure Type: Diastolic Stress/Imaging Stress/Image Study Performed: No CONCLUSIONS Successful KIRK to distal LM RECOMMENDATIONS DESCRIPTION OF PROCEDURE The patient arrived to the procedure lab. The risks and benefits of the procedure as well as a full description of our services here and current unavailability of surgical backup were fully explained to the patient and/or their significant other prior to the catheterization. The Timeout was completed, verifying the correct patient and procedure. The patient's procedural site was prepped and draped in the usual fashion. Local anesthetic was given subcutaneously to right groin region with Lidocaine 2% Using a modified Seldinger technique, Left Coronary Artery selective angiography was performed in multiple views using a 5 Fr. JL4 catheter. Right Coronary Artery selective angiography was then performed in multiple views using a 5 Fr. 3DRC (Luis) catheter. Saphenous Vein graft to the OM 1 selective angiography was performed in multiple views using a 5 Fr. 3DRC (Luis) catheter. Left internal mammary artery graft to the LAD selective angiography was performed in multiple views using a 5 Fr. 3DRC (Luis) catheter. Arterial sheath was exchanged for a 6 Fr Sheath. XB 3.5 Guide catheter was inserted and engaged into the LCA. BMW Guide wire was advanced to the Circumflex. 3.0 x 8 Emerge Balloon catheter was inserted. Balloon catheter was advanced across lesion in the LM distal PTCA balloon inflated at 8 atms for 17 secs. PTCA balloon inflated at 8 atms for 14 secs. 3.5 x 8 Synergy Drug Eluting stent was inserted. Drug Eluting stent was advanced across the lesion in the LM distal Angiogram performed pre stent deployment. Angiogram performed post stent deployment. 3.5 x 8 NC Euphora Balloon catheter was inserted post stent. Angiogram performed post balloon dilatation. Contrast was injected through the sheath and the Right Iliac and Femoral artery were assessed for possible closure device. INTERVENTION INFORMATION LESION SITE: Left Main (Distal) Lesion Complexity: High/C, chronic total occlusion: No, lesion at bifurcation: No, thrombus present: No, lesion length: 8 mm, culprit lesion: Yes Pre Stenosis: 95 % Pre intervention NAVEEN flow: 3 PROCEDURE: Drug Eluting Stent with pre and post dilatation The stent was deployed into the LCx covering the dLM and oLCx lesions Post Stenosis: 0 % Post intervention NAVEEN flow: 3 Lesion Devices: Cordis 6 Fr XB3.5 100cm Guide Catheter Grey .014 BMW [place] Straight 190cm Chadwick Sci EMERGE MR 3.00x08 BALLOON Chadwick Sci Synergy MR KIRK 3.50x08 Medtronic NC EUPHORA RX 3.5x08 BALLOON COPD/ JONATHAN? CPAP - Pt notes difficulty tolerating his CPAP machine; he notes the pressure is too high Sees coating technician Dr Riley at [facility] A-Fib - Pt is on Eliquis 5 mg (he's not entirely sure he's taking this). Had paroxysmal a fib in hospital REVIEW OF SYSTEMS General: Feels fatigued. , no fever, no chills,. Weight is stable HEENT: No sinus congestion, earache, sore throat. Cardiac: No chest pain, palpitations Resp: No cough, wheeze, shortness of breath GI: No reflux symptoms, food intolerance, bowel changes. : No urinary frequency, dysuria. MS: No pain or joint complaints. PAST MEDICAL HISTORY PAST MEDICAL HISTORY Diagnosis Date CABG CVA (cerebral infarction) 04/16/14 Depression GERD (gastroesophageal reflux disease) Neuropathy Other and unspecified hyperlipidemia Prostate cancer (HCC) Unspecified essential hypertension PHYSICAL EXAMINATION BP 137/83 (BP Site: Left Arm, BP Position: Sitting) Pulse 71 Temp 36.9 C (98.4 F) (Right Tympanic) Resp 16 Ht 180.3 cm (5' 11 ) Wt 88.2 kg (194 lb 8 oz) SpO2 93% BMI 27.13 kg/m General: Alert, well developed, well nourished, no distress, pleasant and cooperative. Obese.he is short of bbreath. O2 sat vairable Heart: Regular rate and rhythm. Normal S1 and S2. No murmurs, rubs, or gallops. Lungs: few rhonchi noted. No rales. r to auscultation bilaterally. No respiratory distress. No wheezes, rales, or rhonchi. Abdomen: Soft, non-tender, no distention. Extremities: Feet/ankles without edema, posterior tibial pulses full and symmetrical. Data Reviewed Component Latest Ref Rng & Units 12/17/2020 09/14/2021 Protein, Total 6.3 - 8.0 g/dL 7.6 Albumin 3.9 - 4.9 g/dL 4.6 Calcium 8.5 - 10.2 mg/dL 9.9 8.6 Bilirubin, Total 0.2 - 1.3 mg/dL 0.7 Alkaline Phosphatase 38 - 113 U/L 113 AST 14 - 40 U/L 23 Glucose 74 - 99 mg/dL 96 87 BUN 9 - 24 mg/dL 28 (H) 25 (H) Creatinine 0.73 - 1.22 mg/dL 0.85 0.82 Sodium 136 - 144 mmol/L 140 134 (L) Potassium 3.7 - 5.1 mmol/L 5.2 (H) 5.1 Chloride 97 - 105 mmol/L 104 104 CO2 22 - 30 mmol/L 26 21 (L) Anion Gap 9 - 18 mmol/L 10 9 ALT 10 - 54 U/L 25 eGFR- >60 eGFR-All Other Races . >60 eGFR >=60 mL/min/1.73m 88 Cholesterol, Total <200 mg/dL 135 Triglyceride <150 mg/dL 67 HDL Cholesterol >39 mg/dL 52 LDL Cholesterol <100 mg/dL 70 Non HDL Cholesterol <130 mg/dL 83 Fasting Time hrs Unknown VLDL Cholesterol <30 mg/dL 13 TC:HDL Ratio <5.10 2.60 LDL:HDL Ratio <2.54 1.35 Hemoglobin A1C 4.3 - 5.6 % 5.2 Estimated Average Glucose mg/dL 103 TSH 0.270 - 4.200 uU/mL 2.970 Assessment/Plan (I25.119) Coronary artery disease involving [place] coronary artery of [place] heart with angina pectoris (HCC) (primary encounter diagnosis) Comment: Pt is on aspirin 81 mg chewable once daily Plan: ECG COMPLETE, COMP METABOLIC PANEL, LIPID PANEL BASIC, XR CHEST 2V FRONTAL/LAT (I10) Essential hypertension Comment: Pt is on atenolol 50 mg and aldactone 25 mg Plan: COMP METABOLIC PANEL, LIPID PANEL BASIC, spironolactone (ALDACTONE) 25 mg tablet, atenolol (TENORMIN) 50 mg tablet (E87.6) Hypokalemia Comment: Pt is on Potassium chloride to mEq tablet Plan: COMP METABOLIC PANEL, potassium chloride (K-TAB) 10 mEq tablet (G62.9) Peripheral polyneuropathy Comment: Pt is on gabapentin 100 mg Plan: gabapentin (NEURONTIN) 100 mg capsule continue on current regimen (E03.9) Acquired hypothyroidism (E03.9) Hypothyroidism, unspecified type Comment: Pt is on levothyroxine 50 mcg Plan: TSH BLD Levothyroxine (SYNTHROID) 50 mcg tablet (F41.9) Anxiety Comment: Pt is on Lexapro 20 mg Plan: continue on current regimen (I48.0) Paroxysmal atrial fibrillation (HCC) Comment: Pt is on Eliquis 5 mg Plan: ECG COMPLETE, COMP METABOLIC PANEL, CBC, XR CHEST 2V FRONTAL/LAT EKG shows sinus rhythm today (R06.02) SOB (shortness of breath) Comment: Pt has Sob when walking at times, not clear if cardiac/ CHF,, pulmonary/ COPD/ both? Plan: XR CHEST 2V FRONTAL/LAT (E78.2) Mixed hyperlipidemia Comment: Pt is on atorvastatin 40 mg Plan: atorvastatin (LIPITOR) 40 mg tablet -continue on current regimen Depression/ anxiety He alludes to refill request of Ativan though doesn't name the med. He doesn't think he's getting as good a response to Lexapro. He's advised the lorazepam is not suitable. RTO: Scribe Attestation: By signing my name below, IRosalee, attest that this documentation has been prepared under the direction and in the presence of Shayne Zaidi M.D. Electronically Signed: Yousif Weaver. May 21, 2022 3:59 PM Provider Attestation: Paddy Loco MD, personally performed the services described in this documentation. All medical record entries made by the scribe were at my direction and in my presence. I have reviewed the chart and discharge instructions (if applicable) and agree that the record reflects my personal performance and is accurate and complete. Electronically Signed: Paddy Zaidi MD May 21, 2022 6:20 PM documented in this encounter [facility] 05-14-2022 Miscellaneous Notes Addended by: HEVER FRANKLIN MA on: 05/14/2022 03:37 PM Modules accepted: Orders Last appointment: 12/23/21 Next appointment: 05/23/22 Pharmacy verified in [facility]. Refill(s) requested: Requested Prescriptions Pending Prescriptions Disp Refills atorvastatin (LIPITOR) 40 mg tablet 90 tablet 0 Sig: Take 1 tablet by mouth once daily. gabapentin (NEURONTIN) 100 mg capsule 180 capsule 0 Sig: Take 2 capsules by mouth daily at bedtime for 180 days. For neuropathy spironolactone (ALDACTONE) 25 mg tablet 90 tablet 0 Sig: Take 1 tablet by mouth once daily. escitalopram oxalate (LEXAPRO) 20 mg tablet 90 tablet 0 Sig: Take 1 tablet by mouth once daily. atenolol (TENORMIN) 50 mg tablet 90 tablet 0 Sig: Take 0.5 tablets by mouth once daily. levothyroxine (SYNTHROID) 50 mcg tablet 90 tablet 0 Sig: Take 1 tablet by mouth once daily. potassium chloride (K-TAB) 10 mEq tablet 180 tablet 0 Sig: Take 2 tablets by mouth every morning. Order(s) pended. Please advise. Hever Franklin Ma, QUAL FIELD MANAGER Adrian came by and needs refills of all of his medications sent to [facility] pharmacy in [place]. Can someone assist him with his RX refills? He is totally out of gabapentin but also requesting atorvastatin, spironolactone, escitalopram oxalate, atenolol, levothyroxine, potassium chloride. I have scheduled Adrian for a routine check up since he has not been seen since last fall. Lacie Fox documented in this encounter [facility] 04-27-2022 Note HNO ID: [id number] Author: Talia Pratt Population Health Navigator Service: ? Author Type: ? 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 N/A Reason for Outreach HCC or suspected condition Payer: Payor: [employer] MEDICARE / Plan: [employer] MEDICARE PPO / Product Type: PPO / Care Gap Reviewed:: Follow-up appointment Reminder: Reminder note to check Health Maintenance for items below Health Maintenance items due: SPIROMETRY Never done COVID-19 VACCINE(3 - Booster for Moderna series) due on 05/23/2020 INFLUENZA(1) due on 10/08/2021 LDL CHOLESTEROL due on 12/17/2021 ADVANCE DIRECTIVE DISCUSSION Never done Navigation Signature: Talia Pratt Population Health Navigator April 27, 2022 2:59 PM [facility] 04-27-2022 History of Present illness Narrative POPULATION HEALTH NAVIGATION OUTREACH Action/FYI HCC gaps- Diagnosis with HCC gap left: G81.91 - Right hemiparesis (HCC) J44.9 - Moderate COPD (chronic obstructive pulmonary disease) (HCC) - [id number] Last Billed 12/23/2021 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 N/A Reason for Outreach HCC or suspected condition Payer: Payor: AET[employer] MEDICARE / Plan: A[employer] MEDICARE PPO / Product Type: PPO / Care Gap Reviewed:: Follow-up appointment Reminder: Reminder note to check Health Maintenance for items below Health Maintenance items due: SPIROMETRY Never done COVID-19 VACCINE(3 - Booster for Moderna series) due on 05/23/2020 INFLUENZA(1) due on 10/08/2021 LDL CHOLESTEROL due on 12/17/2021 ADVANCE DIRECTIVE DISCUSSION Never done Navigation Signature: Talia Pratt Population Health Navigator April 27, 2022 2:59 PM documented in this encounter [facility] 04-27-2022 Note Patient Outreach (DARIEN TNABDI) ARTURO PEDERSEN ([id number]) 1940 M Date Time Provider Department 04/27/22 TALIA PRATT During your visit today, we recorded the following information about you: Talia Pratt Population Health Navigator 04/27/2022 3:02 PM Signed POPULATION HEALTH NAVIGATION OUTREACH Action/FYI HCC gaps- Diagnosis with HCC gap left: G81.91 - Right hemiparesis (HCC) J44.9 - Moderate COPD (chronic obstructive pulmonary disease) (HCC) - [id number] Last Billed 12/23/2021 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 N/A Reason for Outreach HCC or suspected condition Payer: Payor: AETNA MEDICARE / Plan: A[employer] MEDICARE PPO / Product Type: PPO / Care Gap Reviewed:: Follow-up appointment Reminder: Reminder note to check Health Maintenance for items below Health Maintenance items due: SPIROMETRY Never done COVID-19 VACCINE(3 - Booster for Moderna series) due on 05/23/2020 INFLUENZA(1) due on 10/08/2021 LDL CHOLESTEROL due on 12/17/2021 ADVANCE DIRECTIVE DISCUSSION Never done Navigation Signature: Talia Pratt Population Health Navigator April 27, 2022 2:59 PM Allergies As of Date: 04/27/2022 Noted Allergy Reaction ASPIRIN 04/19/2018 16 - Unknown OXYCODONE 04/19/2018 14 - Other: See Comments PERCODAN (OXYCODONE-ASPIRIN) 12/17/2004 1 - Mental Status Change Date Reviewed: 12/23/2021 Reviewed by: Ge Womack - Fully Assessed Reason for Visit: Population Health Navigation Outreach [3910] Cmt: HCC Prescriptions as of 04/27/2022 - atorvastatin (LIPITOR) 40 mg tablet Take 1 tablet by mouth once daily. - gabapentin (NEURONTIN) 100 mg capsule Take 2 capsules by mouth daily at bedtime for 180 days. For neuropathy - spironolactone (ALDACTONE) 25 mg tablet Take 1 tablet by mouth once daily. - escitalopram oxalate (LEXAPRO) 20 mg tablet Take 1 tablet by mouth once daily. - atenolol (TENORMIN) 50 mg tablet Take 0.5 tablets by mouth once daily. - levothyroxine (SYNTHROID) 50 mcg tablet Take 1 tablet by mouth once daily. - potassium chloride (K-TAB) 10 mEq tablet Take 2 tablets by mouth every morning. - ELIQUIS 5 mg tab(s) Take 5 mg by mouth twice daily. - levoFLOXacin (LEVAQUIN) 500 mg tablet TAKE 1 TABLET BY MOUTH ONCE DAILY AT 6AM FOR 6 DAYS - predniSONE (DELTASONE) 10 mg tablet TAKE 4 TABLETS BY MOUTH WITH BREAKFAST FOR 3 DAYS. THEN 3 TABLETS BY MOUTH WITH BREAKFAST FOR 3 DAYS. THEN 2 TABLETS BY MOUTH WITH BREAKFAST FOR 3 DAYS. THEN 1 TABLET BY MOUTH WITH BREAKFAST FOR 3 DAYS. - mirtazapine (REMERON) 30 mg tablet (Discontinued) Take 1 tablet by mouth daily at bedtime. - aspirin 81 mg chewable tablet Take 81 mg by mouth once daily. - nitroglycerin sublingual (NITROQUICK) 0.3 mg SL tablet Dissolve 1 tablet under the tongue every 5 minutes as needed. Problem List As Of Date 04/27/2022 Noted Resolved Atherosclerotic cardiovascular disease [I25.10] 12/17/2004 Essential hypertension [I10] 12/17/2004 Hyperlipidemia [E78.5] 12/17/2004 PAROX VENTRIC TACHYCARD [I47.29] 01/11/2005 Depression [F32.A] 12/27/2008 Dyspnea [R06.00] 09/04/2009 Acquired hypothyroidism [E03.9] 09/26/2012 Obstructive sleep apnea on CPAP [G47.33, Z99.89]12/19/2014 Adjustment disorder with mixed anxiety and depr*02/01/2017 Pure hypercholesterolemia [E78.00] 06/12/2018 Idiopathic peripheral neuropathy [G60.9] 06/22/2021 Abnormal electrocardiogram [R94.31] 10/19/2017 Anxiety [F41.9] 12/23/2021 Atherosclerotic heart disease of [place] coronar*10/19/2017 Cerebrovascular accident (CVA) (HCC) [I63.9] 12/23/2021 Chronic obstructive asthma with exacerbation (H*12/18/2021 Dysarthria [R47.1] 12/23/2021 Dysphagia [R13.10] 12/23/2021 Encounter for immunization [Z23] 01/12/2018 Gastroesophageal reflux disease [K21.9] 12/23/2021 Hoarseness [R49.0] 11/05/2016 Hypokalemia [E87.6] 12/23/2021 Malignant neoplasm of prostate ([facility]) [C61] 12/23/2021 Moderate COPD (chronic obstructive pulmonary di*11/19/2015 Myocardial infarction (HCC) [I21.9] 12/18/2021 Neurological symptoms [R29.90] 12/23/2021 Other acute postprocedural pain [G89.18] 09/13/2017 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 [facility] 03-30-2022 Note Patient Outreach (IN TMMN) ARTURO PEDERSEN ([id number]) 1940 M Date Time Provider Department 03/30/22 PADDY ZAIDI During your visit today, we recorded the following information about you: Allergies As of Date: 03/30/2022 Noted Allergy Reaction ASPIRIN 04/19/2018 16 - Unknown OXYCODONE 04/19/2018 14 - Other: See Comments PERCODAN (OXYCODONE-ASPIRIN) 12/17/2004 1 - Mental Status Change Date Reviewed: 12/23/2021 Reviewed by: Ge Womack - Fully Assessed Visit Diagnoses:Medication management [Z79.899] Acquired hypothyroidism [E03.9] Order(s):CBC [SQCBC] Order #: [id number] FUTURE TSH BLD [SQTSH] Order #: [id number] FUTURE SCHEDULE LAB TESTING [[id number]] Order #: [id number] FUTURE Prescriptions as of 04/02/2022 - atorvastatin (LIPITOR) 40 mg tablet Take 1 tablet by mouth once daily. - gabapentin (NEURONTIN) 100 mg capsule Take 2 capsules by mouth daily at bedtime for 180 days. For neuropathy - spironolactone (ALDACTONE) 25 mg tablet Take 1 tablet by mouth once daily. - escitalopram oxalate (LEXAPRO) 20 mg tablet Take 1 tablet by mouth once daily. - atenolol (TENORMIN) 50 mg tablet Take 0.5 tablets by mouth once daily. - levothyroxine (SYNTHROID) 50 mcg tablet Take 1 tablet by mouth once daily. - potassium chloride (K-TAB) 10 mEq tablet Take 2 tablets by mouth every morning. - ELIQUIS 5 mg tab(s) Take 5 mg by mouth twice daily. - levoFLOXacin (LEVAQUIN) 500 mg tablet TAKE 1 TABLET BY MOUTH ONCE DAILY AT 6AM FOR 6 DAYS - predniSONE (DELTASONE) 10 mg tablet TAKE 4 TABLETS BY MOUTH WITH BREAKFAST FOR 3 DAYS. THEN 3 TABLETS BY MOUTH WITH BREAKFAST FOR 3 DAYS. THEN 2 TABLETS BY MOUTH WITH BREAKFAST FOR 3 DAYS. THEN 1 TABLET BY MOUTH WITH BREAKFAST FOR 3 DAYS. - mirtazapine (REMERON) 30 mg tablet (Discontinued) Take 1 tablet by mouth daily at bedtime. - aspirin 81 mg chewable tablet Take 81 mg by mouth once daily. - nitroglycerin sublingual (NITROQUICK) 0.3 mg SL tablet Dissolve 1 tablet under the tongue every 5 minutes as needed. Problem List As Of Date 03/30/2022 Noted Resolved Atherosclerotic cardiovascular disease [I25.10] 12/17/2004 Essential hypertension [I10] 12/17/2004 Hyperlipidemia [E78.5] 12/17/2004 PAROX VENTRIC TACHYCARD [I47.29] 01/11/2005 Depression [F32.A] 12/27/2008 Dyspnea [R06.00] 09/04/2009 Acquired hypothyroidism [E03.9] 09/26/2012 Obstructive sleep apnea on CPAP [G47.33, Z99.89]12/19/2014 Adjustment disorder with mixed anxiety and depr*02/01/2017 Pure hypercholesterolemia [E78.00] 06/12/2018 Idiopathic peripheral neuropathy [G60.9] 06/22/2021 Abnormal electrocardiogram [R94.31] 10/19/2017 Anxiety [F41.9] 12/23/2021 Atherosclerotic heart disease of [place] coronar*10/19/2017 Cerebrovascular accident (CVA) (HCC) [I63.9] 12/23/2021 Chronic obstructive asthma with exacerbation (H*12/18/2021 Dysarthria [R47.1] 12/23/2021 Dysphagia [R13.10] 12/23/2021 Encounter for immunization [Z23] 01/12/2018 Gastroesophageal reflux disease [K21.9] 12/23/2021 Hoarseness [R49.0] 11/05/2016 Hypokalemia [E87.6] 12/23/2021 Malignant neoplasm of prostate (HCC) [C61] 12/23/2021 Moderate COPD (chronic obstructive pulmonary di*11/19/2015 Myocardial infarction (HCC) [I21.9] 12/18/2021 Neurological symptoms [R29.90] 12/23/2021 Other acute postprocedural pain [G89.18] 09/13/2017 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 Could someone advise Adrian when and if RX refills have been sent? Thank you, Lacie Fox documented in this encounter [facility] 12-28-2021 Miscellaneous Notes Received visit summary for sleep apnea and COPD from [facility]. Placed in provider's inbox for review. Route to MA scanning. documented in this encounter [facility] 12-25-2021 Miscellaneous Notes Received 12/25/2021 from [facility]. Placed in provider's inbox for review. Route to MA for scanning documented in this encounter [facility] 12-23-2021 Instructions Paddy Zaidi MD - 12/23/2021 11:48 AM EST Take 1/2 tablet of the atenolol daily (25 mg) documented in this encounter [facility] 12-23-2021 History of Present illness Narrative CHIEF COMPLAINT Patient presents with: Hospital F/U HISTORY OF PRESENT ILLNESS Arturo Pedersen is a 81 year old male who presents here today for follow up hospital visit. I last saw this patient on 12/17/20. Blocked arteries. Patient notes that his CPAP went out on him and he was struggling to get oxygen. He has two stents placed Patient says that since being home he is breathing a lot better. He has a follow up with cardiology next month Health Maintenance Due for TDAP. Due for Shingrix series Due for COVID booster Due for advance directive discussion. Due for influenza Labs reviewed. Past medical history, appointments, medications, allergies reviewed. REVIEW OF SYSTEMS Pertinent positives/ negatives: General: Feels well, no fever, no chills. HEENT: No sinus congestion, earache, sore throat. Cardiac: No chest pain, palpitations Resp: No cough, wheeze, +shortness of breath +JONATHAN GI: No reflux symptoms, food intolerance, bowel changes. : No urinary frequency, dysuria. MS: No pain or joint complaints. PAST MEDICAL HISTORY PAST MEDICAL HISTORY Diagnosis Date CABG CVA (cerebral infarction) 04/16/14 Depression GERD (gastroesophageal reflux disease) Neuropathy Other and unspecified hyperlipidemia Prostate cancer (HCC) Unspecified essential hypertension PHYSICAL EXAMINATION BP 91/54 Pulse 87 Temp 36.9 C (98.4 F) Ht 180.3 cm (5' 10.98 ) Wt 87.1 kg (192 lb) SpO2 (!) 87% BMI 26.79 kg/m General: Alert, well developed, well nourished, no distress, pleasant and cooperative. Heart: Regular rate and rhythm. Normal S1 and S2. No murmurs, rubs, or gallops. Lungs: Clear to auscultation bilaterally. No respiratory distress. No wheezes, rales, or rhonchi. Abdomen: Soft, non-tender, no distention. Extremities: Feet/ankles without edema, posterior tibial pulses full and symmetrical. 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 Continue to follow care of cardiology (G47.33, Z99.89) Obstructive sleep apnea on CPAP Comment:he needs a new machine Plan: more info on machine needed- he'll check with DR Riley who prescribed initially. Hospital discharge follow up. Requested Prescriptions Signed Prescriptions Disp Refills atenolol (TENORMIN) 50 mg tablet 90 tablet 0 Sig: Take 0.5 tablets by mouth once daily. RTO: 3 months Scribe Attestation: By signing my name below, I, Ludivina Nesbitt, attest that this documentation has been prepared under the direction and in the presence of Shayne Zaidi M.D. Electronically Signed: Yousif Arshad. December 23, 2021 8:08 AM Provider Attestation: I, Paddy Zaidi MD, personally performed the services described in this documentation. All medical record entries made by the scribe were at my direction and in my presence. I have reviewed the chart and discharge instructions (if applicable) and agree that the record reflects my personal performance and is accurate and complete. Electronically Signed: Paddy Zaidi MD December 23, 2021 2:07 PM documented in this encounter [facility] 12-23-2021 Miscellaneous Notes Received EKG from [facility]. Placed in provider's inbox for review. Route to MA scanning. documented in this encounter [facility] 12-21-2021 Miscellaneous Notes Received 12/18/2021 from [facility]. Placed in provider's inbox for review. Route to MA for scanning. documented in this encounter [facility] 12-21-2021 Miscellaneous Notes Received 12/21/2021 from [facility]. Placed in provider's inbox for review. Route to MA for scanning documented in this encounter [facility] 12-17-2021 Miscellaneous Notes Received liver us for elevated lft's from [facility]. Placed in provider's inbox for review. Route to MA scanning. documented in this encounter [facility] 12-16-2021 Miscellaneous Notes Received cardiac cath intervention/diagnostic procedure note and EKG's 12/14, 12/15, 12/16 from [facility]. Placed in provider's inbox for review. Route to MA scanning. documented in this encounter [facility] 12-15-2021 Miscellaneous Notes Received ED summary, labs, imaging for SOB and chest pain from [facility]. Placed in provider's inbox for review. Route to MA scanning. documented in this encounter [facility] 11-16-2021 Miscellaneous Notes The following approved medication requests have been transmitted electronically. Requested Prescriptions Signed Prescriptions Disp Refills escitalopram oxalate (LEXAPRO) 20 mg tablet 90 tablet 0 Sig: Take 1 tablet by mouth once daily Authorizing Provider: PADDY ZAIDI Refused Prescriptions Disp Refills gabapentin (NEURONTIN) 100 mg capsule [Pharmacy Med Name: Gabapentin 100 MG Oral Capsule] 180 capsule 0 Sig: TAKE 2 CAPSULES BY MOUTH ONCE DAILY AT BEDTIME FOR NEUROPATHY. Refused By: TALIA AMBRIZ Reason for Refusal: Patient has requested refill too soon Paddy Zaidi MD Pharmacy verified in [facility] Patient has been identified by name and date of : Yes Patient aware RX will be sent to pharmacy. No need to notify patient. Patient phones for refill(s): Requested Prescriptions Pending Prescriptions Disp Refills escitalopram oxalate (LEXAPRO) 20 mg tablet [Pharmacy Med Name: Escitalopram Oxalate 20 MG Oral Tablet] 90 tablet 0 Sig: Take 1 tablet by mouth once daily Refused Prescriptions Disp Refills gabapentin (NEURONTIN) 100 mg capsule [Pharmacy Med Name: Gabapentin 100 MG Oral Capsule] 180 capsule 0 Sig: TAKE 2 CAPSULES BY MOUTH ONCE DAILY AT BEDTIME FOR NEUROPATHY. Date of last office visit : 06/22/2021 Date of next office visit : Visit date not found Last 2 Encounter Wt Readings: Date: Wt: 06/22/2021 88.4 kg (194 lb 12.8 oz) 12/17/2020 88 kg (194 lb) Not applicable Please advise. Talia Ambriz LPN documented in this encounter [facility] 09-15-2021 Miscellaneous Notes 1st attempt. Called patient and left message on VM. Called pt and informed of lab results. Pt is agreeable with scheduling please assist. Please let patient know that his kidney function is stable. Potassium is normal, sodium was slightly low and will continue to monitor this. Schedule an appointment in 3 months to recheck. Hever Hernandez APRN.SHANNAN documented in this encounter [facility] 09-10-2021 Miscellaneous Notes Called and spoke with pt. Pt will have labs drawn soon. Patient is due for updated kidney function labs. Order placed, please get done soon, nonfasting. Hever Hernandez APRN.PSYCHIATRIC NP Last appointment: 06/22/21 Next appointment: n/a Pharmacy verified in Epic. Refill(s) requested: Pending Prescriptions Disp Refills ATENOLOL 50 MG TABLET 90 tablet 0 Sig: Take 1 tablet by mouth once daily KARLA: Yes POTASSIUM CHLORIDE ER 10 MEQ TABLET,EXTENDED RELEASE 180 tablet 0 Sig: TAKE 2 TABLETS BY MOUTH ONCE DAILY WITH BREAKFAST KARLA: Yes SPIRONOLACTONE 25 MG TABLET 90 tablet 0 Sig: Take 1 tablet by mouth once daily KARLA: Yes Order(s) pended. Please advise. Timothy Maradiaga Ma, RDAHA documented in this encounter [facility] 06-22-2021 History of Present illness Narrative This note was created using [employer]. Subjective Arturo Pedersen is a 80 year old male. Patient here for follow-up on chronic care. Last saw PCP December 2020. HTN: patient bought a new blood pressure cuff a month ago and has been checking his blood pressure's at home. Usually running <140/90, but did not bring his list with him. Taking atenolol, spironolactone and potassium as prescribed. HLD: takes lipitor daily, well controlled. Mood: well controlled on Lexapro Thyroid: controlled on levothyroxine 50 mcg Foot pain: reports not much improvement with gabapentin 100 mg QHS. The history is provided by the patient. Review of Systems Constitutional: Negative for unexpected weight change. Respiratory: Negative for shortness of breath. Cardiovascular: Negative for chest pain and palpitations. Gastrointestinal: Negative for abdominal pain, constipation and diarrhea. Genitourinary: Negative for difficulty urinating. Musculoskeletal: Positive for arthralgias and myalgias. Skin: Negative for color change. Allergic/Immunologic: Negative for immunocompromised state. Neurological: Negative for dizziness and headaches. Objective BP 161/78 Pulse 65 Ht 180.3 cm (5' 10.98 ) Wt 88.4 kg (194 lb 12.8 oz) BMI 27.18 kg/m Physical Exam Vitals and nursing note reviewed. Constitutional: Appearance: He is well-developed. He is not ill-appearing. Cardiovascular: Rate and Rhythm: Normal rate and regular rhythm. Heart sounds: Normal heart sounds. Pulmonary: Effort: Pulmonary effort is normal. Breath sounds: Normal breath sounds. Abdominal: General: Abdomen is flat. Bowel sounds are normal. Palpations: Abdomen is soft. Musculoskeletal: Cervical back: No tenderness. Right lower leg: No edema. Left lower leg: No edema. Lymphadenopathy: Cervical: No cervical adenopathy. Skin: General: Skin is warm and dry. Neurological: Mental Status: He is alert and oriented to person, place, and time. Assessment and Plan 1. Essential hypertension Slightly elevated on arrival, improved on re-check. Bring list of home blood pressure readings to next appointment and continue current medications. 2. Pure hypercholesterolemia Controlled on lipitor, continue. 3. Acquired hypothyroidism Controlled on current dose of levothyroxine. 4. Adjustment disorder with mixed anxiety and depressed mood Controlled on Lexapro, continued. 5. Peripheral polyneuropathy Uncontrolled, increase gabapentin to 200 mg at bedtime. Discussed that we can continue increasing the dose if he's tolerating it and seeing improvement, keep us posted on his progress with the higher dose. - gabapentin (NEURONTIN) 100 mg capsule; Take 2 capsules by mouth daily at bedtime for 180 days. For neuropathy Dispense: 180 capsule; Refill: 1 Hever Hernandez APRN.CNP documented in this encounter [facility] 06-10-2021 Miscellaneous Notes Called patient and got appointment scheduled Patient is due for a 6 month chronic care visit, please schedule with either provider. Hever Hernandez APRN.CNP Pharmacy verified in [employer] Patient has been identified by name and date of : Yes Patient aware RX will be sent to pharmacy. No need to notify patient. Pharmacy phones for refill(s): Pending Prescriptions Disp Refills ATENOLOL 50 MG TABLET 90 tablet 0 Sig: Take 1 tablet by mouth once daily. KARLA: No POTASSIUM CHLORIDE ER 10 MEQ TABLET,EXTENDED RELEASE 180 tablet 0 KARLA: No SPIRONOLACTONE 25 MG TABLET 90 tablet 0 Sig: Take 1 tablet by mouth once daily. KARLA: No Date of last office visit : 12/17/2020 Date of next office visit : Visit date not found Last 2 Encounter Wt Readings: Date: Wt: 12/17/2020 88 kg (194 lb) 03/12/2020 82.9 kg (182 lb 12.8 oz) Please advise. Corrina Preciado Pss documented in this encounter [facility] 05-21-2021 Miscellaneous Notes The following approved medication requests have been transmitted electronically. Signed Prescriptions Disp Refills escitalopram oxalate (LEXAPRO) 20 mg tablet 30 tablet 0 Sig: Take 1 tablet by mouth once daily KARLA: No Authorizing Provider: PADDY ZAIDI MD Last appointment: 12-17-20 Next appointment: na Pharmacy verified in [facility]. Refill(s) requested: Pending Prescriptions Disp Refills ESCITALOPRAM 20 MG TABLET 30 tablet 0 Sig: Take 1 tablet by mouth once daily KARLA: Yes Order(s) pended. Please advise. Haily Avila MA, QUAL FIELD MANAGER documented in this encounter [facility] [place] [facility] Diagnosis Essential hypertension- Primary Unspecified essential hypertension Pure hypercholesterolemia Acquired hypothyroidism Unspecified hypothyroidism Adjustment disorder with mixed anxiety and depressed mood Peripheral polyneuropathy Unspecified hereditary and idiopathic peripheral neuropathy [facility] [place] [facility] Diagnosis Essential hypertension Unspecified essential hypertension Hypokalemia [facility]opotassemia [facility] Diagnosis Peripheral polyneuropathy Unspecified hereditary and idiopathic peripheral neuropathy [facility] [place] [facility] Diagnosis COPD with exacerbation (HCC)- Primary Obstructive chronic bronchitis with exacerbation Hypertensive urgency Unspecified essential hypertension Coronary artery disease involving [place] coronary artery of [place] heart with angina pectoris (HCC) S/P angioplasty with stent Other postprocedural status 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) Pneumonia of left upper lobe due to infectious organism Essential hypertension Unspecified essential hypertension Obstructive sleep apnea on CPAP Obstructive sleep apnea (adult) (pediatric) Hospital discharge follow-up Other follow-up examination [facility] [place] [facility] Diagnosis Medication management Encounter for long-term (current) use of other medications Acquired hypothyroidism Unspecified hypothyroidism [facility] [place] [facility] Diagnosis Mixed hyperlipidemia Peripheral polyneuropathy Unspecified hereditary and idiopathic peripheral neuropathy Essential hypertension Unspecified essential hypertension Hypothyroidism, unspecified type Hypokalemia Hypopotassemia [facility] [place] [facility] Diagnosis Coronary artery disease involving [place] coronary artery of [place] heart with angina pectoris (HCC)- Primary Essential hypertension Unspecified essential hypertension Hypokalemia Hypopotassemia Peripheral polyneuropathy Unspecified hereditary and idiopathic peripheral neuropathy Acquired hypothyroidism Unspecified hypothyroidism Anxiety Anxiety state, unspecified Paroxysmal atrial fibrillation (HCC) Atrial fibrillation SOB (shortness of breath) Shortness of breath Mixed hyperlipidemia Hypothyroidism, unspecified type Chronic obstructive pulmonary disease, unspecified COPD type (HCC) [facility] [place] [facility] Diagnosis Pneumonia of right middle lobe due to infectious organism- Primary [facility] [place] [facility] Diagnosis Pneumonia of right middle lobe due to infectious organism- Primary ED (erectile dysfunction) of organic origin Impotence of organic origin Adjustment disorder with mixed anxiety and depressed mood [facility] [place] [facility] Diagnosis Hypothyroidism, unspecified type Mixed hyperlipidemia documented in this encounter [facility] for referral (narrative)* Outpatient Procedure (Routine) - Closed Specialty Diagnoses / Procedures Referred By Jovan t [facility] Diagnoses Coronary artery disease involving [place] coronary artery of [place] heart with angina pectoris (HCC) Paroxysmal atrial fibrillation (HCC) Procedures ECG COMPLETE ECG ROUTINE ECG W/LEAST 12 LDS W/I&R Paddy Zaidi MD [address] [place] [address] [place] [address] [facility] [place] [address] Referral ID Status Reason Start Date Expiration Date V isits Requested Visits Authorized [id number] Closed Auto-Generate d Referral 05/21/2022 05/21/2023 1 1 [facility] Summary Purpose Family History No Family History Records FoundNo Family History Records Found Advance Directives No Advanced Directives Records FoundNo Advanced Directives Records Found Additional Source Comments (unrecognized sect ion and content) No Status Records FoundNo Status Records Found INFORMATION SOURCE (unrecogn ized section and content) DATE CREATED AUTHOR AUTHOR'S ORGANIZ ATION 02/06/2023 [facility] Source Comments (unrecognize d section and content) In the event this informatio n is protected by the Federal Confidentiality of Alcohol and Drug Abuse Patient Records regulations: The Federal rules restrict any use of the information to criminally investigate or prosecute any alcohol or drug abuse patient.[facility] the event this information is protected by the Federal Confidentiality of Alcohol and Drug Abuse Patient Records regulations: The Federal rules restrict any use of the information to criminally investigate or prosecute any alcohol or drug abuse patient.[facility] the event this information is protected by the Federal Confidentiality of Alcohol and Drug Abuse Patient Records regulations: The Federal rules restrict any use of the information to criminally investigate or prosecute any alcohol or drug abuse patient.[facility] the event this information is protected by the Federal Confidentiality of Alcohol and Drug Abuse Patient Records regulations: The Federal rules restrict any use of the information to criminally investigate or prosecute any alcohol or drug abuse patient.[facility] the event this information is protected by the Federal Confidentiality of Alcohol and Drug Abuse Patient Records regulations: The Federal rules restrict any use of the information to criminally investigate or prosecute any alcohol or drug abuse patient.[facility] the event this information is protected by the Federal Confidentiality of Alcohol and Drug Abuse Patient Records regulations: The Federal rules restrict any use of the information to criminally investigate or prosecute any alcohol or drug abuse patient.[facility] the event this information is protected by the Federal Confidentiality of Alcohol and Drug Abuse Patient Records regulations: The Federal rules restrict any use of the information to criminally investigate or prosecute any alcohol or drug abuse patient.[facility] the event this information is protected by the Federal Confidentiality of Alcohol and Drug Abuse Patient Records regulations: The Federal rules restrict any use of the information to criminally investigate or prosecute any alcohol or drug abuse patient.[facility] the event this information is protected by the Federal Confidentiality of Alcohol and Drug Abuse Patient Records regulations: The Federal rules restrict any use of the information to criminally investigate or prosecute any alcohol or drug abuse patient.[facility] the event this information is protected by the Federal Confidentiality of Alcohol and Drug Abuse Patient Records regulations: The Federal rules restrict any use of the information to criminally investigate or prosecute any alcohol or drug abuse patient.[facility] the event this information is protected by the Federal Confidentiality of Alcohol and Drug Abuse Patient Records regulations: The Federal rules restrict any use of the information to criminally investigate or prosecute any alcohol or drug abuse patient.[facility] the event this information is protected by the Federal Confidentiality of Alcohol and Drug Abuse Patient Records regulations: The Federal rules restrict any use of the information to criminally investigate or prosecute any alcohol or drug abuse patient.[facility] the event this information is protected by the Federal Confidentiality of Alcohol and Drug Abuse Patient Records regulations: The Federal rules restrict any use of the information to criminally investigate or prosecute any alcohol or drug abuse patient.[facility] the event this information is protected by the Federal Confidentiality of Alcohol and Drug Abuse Patient Records regulations: The Federal rules restrict any use of the information to criminally investigate or prosecute any alcohol or drug abuse patient.[facility] Center[facility] the event this information is protected by the Federal Confidentiality of Alcohol and Drug Abuse Patient Records regulations: The Federal rules restrict any use of the information to criminally investigate or prosecute any alcohol or drug abuse patient.[facility] Center[facility] the event this information is protected by the Federal Confidentiality of Alcohol and Drug Abuse Patient Records regulations: The Federal rules restrict any use of the information to criminally investigate or prosecute any alcohol or drug abuse patient.[facility] CenterIn the event this information is protected by the Federal Confidentiality of Alcohol and Drug Abuse Patient Records regulations: The Federal rules restrict any use of the information to criminally investigate or prosecute any alcohol or drug abuse patient.[facility] CenterIn the event this information is protected by the Federal Confidentiality of Alcohol and Drug Abuse Patient Records regulations: The Federal rules restrict any use of the information to criminally investigate or prosecute any alcohol or drug abuse patient.[facility] Center[facility] the event this information is protected by the Federal Confidentiality of Alcohol and Drug Abuse Patient Records regulations: The Federal rules restrict any use of the information to criminally investigate or prosecute any alcohol or drug abuse patient.[facility] CenterIn the event this information is protected by the Federal Confidentiality of Alcohol and Drug Abuse Patient Records regulations: The Federal rules restrict any use of the information to criminally investigate or prosecute any alcohol or drug abuse patient.[facility] CenterIn the event this information is protected by the Federal Confidentiality of Alcohol and Drug Abuse Patient Records regulations: The Federal rules restrict any use of the information to criminally investigate or prosecute any alcohol or drug abuse patient.[facility] CenterIn the event this information is protected by the Federal Confidentiality of Alcohol and Drug Abuse Patient Records regulations: The Federal rules restrict any use of the information to criminally investigate or prosecute any alcohol or drug abuse patient.[facility] CenterIn the event this information is protected by the Federal Confidentiality of Alcohol and Drug Abuse Patient Records regulations: The Federal rules restrict any use of the information to criminally investigate or prosecute any alcohol or drug abuse patient.[facility] CenterIn the event this information is protected by the Federal Confidentiality of Alcohol and Drug Abuse Patient Records regulations: The Federal rules restrict any use of the information to criminally investigate or prosecute any alcohol or drug abuse patient.[facility] CenterIn the event this information is protected by the Federal Confidentiality of Alcohol and Drug Abuse Patient Records regulations: The Federal rules restrict any use of the information to criminally investigate or prosecute any alcohol or drug abuse patient.[facility] CenterIn the event this information is protected by the Federal Confidentiality of Alcohol and Drug Abuse Patient Records regulations: The Federal rules restrict any use of the information to criminally investigate or prosecute any alcohol or drug abuse patient.[facility] CenterIn the event this information is protected by the Federal Confidentiality of Alcohol and Drug Abuse Patient Records regulations: The Federal rules restrict any use of the information to criminally investigate or prosecute any alcohol or drug abuse patient.[facility] Reason for Visit (unrecogniz ed section and content) Reason Onset Date Comments Refill Request 06/09/2021 Reason Comments Follow Up Reason Comments Results Reason Comments Received Outside Medical Records [facility] ED Reason Comments Received Outside Medical Records [facility] Car diac Cath Reason Comments Received Outside Medical Records Liver U S [facility] Reason Comments Received Outside Medical Records [facility] chest xray 12/18/2021 Reason Comments Received Outside Medical Records [facility] discharge instructions. 12/18/2021 Reason Comments Erroneous encounter-disregard Reason Comments Received Outside Medical Records EKG [facility] Reason Comments Hospital F/U Reason Comments Received Outside Medical Records [facility] 12 lead EKG 12/16/2021 and 12/17/2021 Reason Comments Received Outside Medical Records Pulmona ry Medicine [facility] Reason Comments Medication Problem Reason Onset Date Comments Population Health Navigation Outreach 04/27/2022 HCC Reason Comments Follow Up Reason Comments Follow Up pneumonia Reason Comments Orders Reason Comments Patient Question Reason Comments Received Outside Medical Records [facility] 09/07 07/30 Reason Comments Orders [employer] annual oxygen prescription renewal Care Teams (unrecognized sec tion and content) Guidance And Control System Engineer Relationship Specialty Start Date End Date Paddy Zaidi MD [address] [place] [address] PCP - General Family Practice 05/27/15 Guidance And Control System Engineer Relationship Specialty Start Date End Date Paddy Zaidi MD [address] [facility] [place] [address] PCP - General Family Practice 05/27/15 Guidance And Control System Engineer Relationship Specialty Start Date End Date Paddy Zaidi MD [facility] [facility] [place] [address] PCP - General Family Practice 05/27/15 Guidance And Control System Engineer Relationship Specialty Start Date End Date Paddy Zaidi MD [address] [place] [address], [place] [address] PCP - General Family Practice 05/27/15 Guidance And Control System Engineer Relationship Specialty Start Date End Date Paddy Zaidi MD [address] [place] [address], [place] [address] PCP - General Family Medicine 05/27/15 Guidance And Control System Engineer Relationship Specialty Start Date End Date Paddy Zaidi MD [address] [place] [address], [place] [address] PCP - General Family Medicine 05/27/15 Guidance And Control System Engineer Relationship Specialty Start Date End Date Paddy Zaidi MD [address] [place] [address], [place] [address] PCP - General Family Medicine 05/27/15 Guidance And Control System Engineer Relationship Specialty Start Date End Date Paddy Zaidi MD [address] [place] [address], [place] [address] PCP - General Family Medicine 05/27/15 Guidance And Control System Engineer Relationship Specialty Start Date End Date Paddy Zaidi MD [address] [place] [address], [place] [address] PCP - General Family Medicine 05/27/15 Guidance And Control System Engineer Relationship Specialty Start Date End Date Paddy Zaidi MD [address] [place] [address], [place] [address] PCP - General Family Medicine 05/27/15 Guidance And Control System Engineer Relationship Specialty Start Date End Date Paddy Zaidi MD [address] [facility] [place] [address] PCP - General Family Medicine 05/27/15 Guidance And Control System Engineer Relationship Specialty Start Date End Date Paddy Zaidi MD [address] [place] [address], [place] [address] PCP - General Family Medicine 05/27/15 Guidance And Control System Engineer Relationship Specialty Start Date End Date Paddy Zaidi MD [address] [place] [address], [place] [address] PCP - General Family Medicine 05/27/15 Guidance And Control System Engineer Relationship Specialty Start Date End Date Paddy Zaidi MD [address] [place] [address], [place] [address] PCP - General Family Medicine 05/27/15 Guidance And Control System Engineer Relationship Specialty Start Date End Date Paddy Zaidi MD [address] [place] [address], [place] [address] PCP - General Family Medicine 05/27/15 Guidance And Control System Engineer Relationship Specialty Start Date End Date Paddy Zaidi MD [address] [place] [address], [place] [address] PCP - General Family Medicine 05/27/15 Guidance And Control System Engineer Relationship Specialty Start Date End Date Paddy Zaidi MD [address] [place] [address], [place] [address] PCP - General Family Medicine 05/27/15 Guidance And Control System Engineer Relationship Specialty Start Date End Date Paddy Zaidi MD [address] [place] [address], [place] [address] PCP - General Family Medicine 05/27/15 Guidance And Control System Engineer Relationship Specialty Start Date End Date Paddy Zaidi MD [address] [place] [address] PCP - General Family Medicine 05/27/15 Guidance And Control System Engineer Relationship Specialty Start Date End Date Paddy Zaidi MD [address] [place] [address] PCP - General [facility] 05/27/15 Guidance And Control System Engineer Relationship Specialty Start Date End Date Paddy Zaidi MD [address] [place], [place] [address] PCP - General Family Medicine 05/27/15 FOR RECORDS PERTAINING TO PATIENTS WHO ARE OR HAVE BEEN ENROLLED IN A CHEMICAL DEPENDENCY/SUBSTANCEABUSE PROGRAM, SOME INFORMATION MAY BE OMITTED. This clinical summary was aggregated from multiple sources. Caution should be exercised in using it in the provision of clinical care. This summary normalizes information from multiple sources, and as a consequence, information in this document may materially change the coding, format and clinical context of patient data. In addition, data may be omitted in some cases. CLINICAL DECISIONS SHOULD BE BASED ON THE PRIMARY CLINICAL RECORDS. [employer] provides no warranty or guarantee of the accuracy or completeness of information in this document.
== END 2023-03-15 16:08 | disposition home or self-care (01) ==
PROVIDERS: Emergency Provider Emergency Medicine; PCP Family Medicine; Visit Provider Emergency Medicine
DX: J44.1 Chronic obstructive pulmonary disease with (acute) exacerbation (principal); I48.20 Chronic atrial fibrillation, unspecified; C61 Malignant neoplasm of prostate; I25.10 Atherosclerotic heart disease of native coronary artery without angina pectoris; J98.01 Acute bronchospasm; E03.9 Hypothyroidism, unspecified; I10 Essential (primary) hypertension; Z87.891 Personal history of nicotine dependence; Z86.73 Personal history of transient ischemic attack (TIA), and cerebral infarction without residual deficits; Z79.899 Other long term (current) drug therapy; Z79.82 Long term (current) use of aspirin; Z79.02 Long term (current) use of antithrombotics/antiplatelets; Z95.5 Presence of coronary angioplasty implant and graft; Z96.649 Presence of unspecified artificial hip joint
CPT/HCPCS: 71046; 80053; 83605; 85025; 87631; 93005; 94640; 99284; A4216

== ENCOUNTER 2024-02-07 14:35 | Emergency (ER) | payer MEDICARE, SELFPAY ==
[2024-02-07] VITALS (12 sets, daily range): BP systolic 115–145; BP diastolic 71–91; PULSE 90–111; RESP 16–22; TEMP 36.4–36.6; O2SAT 93–99; BMI 28.6
[2024-02-07 15:02] LABS: Absolute Neutrophil Count 12.6 X10^3/uL (2.0-7.7); Basophil% 0.7 % (0-1); Eosinophils% 1.4 % (0-5); Hematocrit 46.2 % (40-54); Hemoglobin 14.5 g/dL (13.0-16.5); Lymphocyte % 6.1 % (19-41); Mean Corp Hgb Conc 31.4 g/dL (32-36); Mean Corpuscular Hgb 31.1 pg (27.0-32.0); Mean Corpuscular Volume 99.1 fL (80-94); Mean Platelet Vol. 8.7 fl (6.2-12.0); Monocyte# 0.73 X10^3/uL; NRBC Flagged by Analyzer 0 % (0-5); Neutrophil # 12.57 X10^3/uL (2.7-7.7); Neutrophil % 85.6 % (47-70); Platelet Count 243 K/mm3 (150-450); RBC Distribution Width CV 13.2 % (11.6-14.6); RBC Distribution Width SD 47.5 fl (35.1-43.9); Red Blood Count 4.66 M/mm3 (4.6-6.2); White Blood Count 14.7 K/mm3 (4.4-11.0)
[2024-02-07 15:14] LABS: Anion Gap 3 (5-15); BUN 22 mg/dL (7-18); BUN/Creat Ratio 27.3 RATIO (10-20); Calcium,Total 9.5 mg/dL (8.5-10.1); Chloride 102 mmol/L (98-107); Creatinine, Serum 0.81 mg/dL (0.70-1.30); EST Glomerular Filtration Rate 97 mL/min (>60); Est Glom Filt Rate - Afr Amer 117 mL/min (>60); Glucose 117 mg/dL (74-106); Potassium 4.6 mmol/L (3.5-5.1); Sodium Level 137 mmol/L (136-145)
--- NOTE | 2024-02-07 15:15 | RAD_ITS ---
INDICATION: COUGH EXAMINATION/TECHNIQUE: X-RAY - XR Chest 1 View COMPARISON: Prior study dated: 03/15/2023 FINDINGS: LINES/DEVICES: None. LUNGS: Persistent elevation of the right hemidiaphragm. Atelectatic changes or scarring in the right lung base. Persistent blunting of the right costophrenic angle unchanged. MEDIASTINUM AND CARDIOVASCULAR STRUCTURES: Normal cardiac silhouette. Status post median sternotomy and CABG. BONES AND SOFT TISSUES: Unremarkable. RAD/Chest 1 View (Portable) IMPRESSION: No significant change. No new infiltrate is seen. Electronically Signed: Uriel Roque MD at 15:38 EST ,
--- NOTE | 2024-02-07 16:48 | CT_ITS ---
STUDY: CTA CHEST REASON FOR EXAM: Male, 83 years old. sob RADIATION DOSAGE (If Supplied By Facility): CTDIvol = ( 12.43 ) mGy, DLP = ( 496.67 ) mGycm TECHNIQUE: The examination was performed with the intravenous administration of IV 100mL Isovue-370. Post-processing of the angiographic images was performed, with multiplanar reformation and 3D reconstruction. Individualized dose optimization techniques were used for this CT. COMPARISON: December 15, 2021 FINDINGS: Normal enhancement of the main pulmonary artery and right and left pulmonary arteries. Normal enhancement of the bilateral peripheral pulmonary arteries. There is no demonstrated pulmonary embolism. Mild atherosclerotic changes of the aorta without evidence for aneurysm There is no demonstrated aortic dissection. Heart size is normal. There is multifocal coronary artery calcification. Mildly enlarged hilar and mediastinal nodes largest measuring approximately 1.5 to 2 cm size range . Normal visualized trachea and bronchi. The lungs are well expanded. There is mild atelectasis or infiltrate in left lower lobe There is loss of volume in right hemithorax with elevation of the right hemidiaphragm and subsegmental atelectasis in the right lower lobe Normal pleura. Postop change status post median sternotomy and CABG. Normal osseous structures. Multiple calcified gallstones without evidence for acute cholecystitis. CT/CTA Chest W/WO Contrast IMPRESSION: Mild basilar atelectasis or infiltrate and subsegmental atelectasis in the right lower lobe in association with elevated right hemidiaphragm. No evidence for pulmonary embolus Electronically Signed: Shayne Holt MD at 17:49 EST ,
[2024-02-07] MEDS: Ipratropium/Albuterol Sulfate 3 ML AMPUL.NEB INHALATION (17:09)
--- NOTE | 2024-02-07 17:19 | ED.VIS.DYS ---
HPI History of Present Illness Chief Complaint: Shortness of Breath Informant: patient and family Narrative Narrative: Patient is an 83-year-old male with history of chronic hypoxic respiratory failure on 2 L of oxygen at baseline, coronary artery disease, atrial fibrillation, COPD, central sleep apnea, hypertension and atrial fibrillation presenting from home for worsening cough. Companions at the bedside as well as failure. Apparently patient's had worsening cough and her story symptoms for the past 3 weeks. Said decreased energy level and decreased appetite. His cough is been yellow with dark sputum production. When this for started he did have an episode of sputum that was blood-streaked. Last night he send like he was gurgling. Patient denies using chest pain. Does not take any breathing treatments at home. Denies any vomiting does report some nausea. Has some chronic constipation with no acute change in this. Denies abdominal pain. Denies any urinary symptoms however the pain he notes that he only drinks Pepsi and often times his urine is quite dark or bright yellow. No report of any fevers. No sick contacts reported. No other complaints or concerns at this time. 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) Central sleep apnea Stage 2 moderate COPD by GOLD classification HTN (hypertension) Hoarseness left vocal cord paralysis Home Medications ?Medication ?Instructions ?Recorded ?Last Taken ?Type levothyroxine 50 mcg tablet 50 mcg PO DAILY thyroid 07/25/19 12/14/21 History amlodipine 5 mg tablet 5 mg PO DAILY bp 07/28/19 Unknown History atorvastatin 40 mg tablet 40 mg PO QHS cholesterol 07/28/19 12/14/21 History spironolactone 25 mg tablet 25 mg PO DAILY diuretic 07/28/19 12/14/21 History aspirin 81 mg chewable tablet 81 mg PO DAILY@0800 health 12/14/21 12/14/21 History atenolol 50 mg tablet 50 mg PO DAILY bp 12/14/21 12/14/21 History clopidogrel 75 mg tablet 75 mg PO DAILY blood thinner 12/14/21 Unknown History escitalopram oxalate 20 mg tablet 20 mg PO DAILY depression 12/14/21 12/14/21 History gabapentin 100 mg capsule 200 mg PO QHS foot pain 12/14/21 12/14/21 History potassium chloride 10 mEq 20 meq PO DAILY supplement 12/14/21 12/14/21 History tablet,extended release acetaminophen 500 mg tablet 1,000 mg PO Q6H PRN Pain Score 12/28/21 Unknown History 1-11/16 docusate sodium 100 mg capsule 100 mg PO DAILY #20 CAPSULES 09/22/22 Unknown Rx (DOK) tramadol 50 mg tablet 50 mg PO Q4H PRN PRN Pain 3 days 09/22/22 Unknown Rx #20 tabs albuterol sulfate 90 mcg/actuation 2 puff inhalation Q4H PRN PRN 03/15/23 Unknown Rx aerosol inhaler (Ventolin HFA) Wheezing ##1 doxycycline monohydrate 100 mg 100 mg PO BID #10 CAPSULES 03/15/23 Unknown Rx capsule ipratropium bromide 17 2 puff inhalation Q8H #12.9 grams 03/15/23 Unknown Rx mcg/actuation HFA aerosol inhaler (Atrovent HFA) prednisone 20 mg tablet 60 mg (3 x 20 mg) PO DAILY #15 03/15/23 Unknown Rx TABLETS doxycycline monohydrate 100 mg 100 mg PO BID #14 CAPSULES 02/07/24 Unknown Rx capsule prednisone 20 mg tablet 40 mg (2 x 20 mg) PO DAILY #8 tabs 02/07/24 Unknown Rx Allergy/AdvReac Type Severity Reaction Status Date / Time oxycodone (From Percodan) Allergy Other Verified 02/07/24 14:36 Surgical History History of coronary artery stent placement (12/16/21) Cataract extraction status History of hip replacement History of open heart surgery Social History Smoking Status: Former smoker quit date: 02/08/92 pack-years: 37 Tobacco: How many years used: 20 alcohol intake: never substance use type: does not use ROS ROS ED Constitutional Constitutional ED: Reports other Details: Decreased activity, decreased appetite ; Denies chills or fever(s) Eyes Eyes: Denies change in vision ENT ENT ED: Denies rhinorrhea or sore throat Cardiovascular Cardiovascular: Denies chest pain Respiratory/Chest Respiratory/Chest: Reports cough, dyspnea and sputum Gastrointestinal Gastrointestinal: Reports constipation and nausea; Denies abdominal pain, diarrhea or vomiting Genitourinary Genitourinary ED: Denies dysuria or urinary frequency Musculoskeletal Musculoskeletal: Denies arthralgias or myalgias Integumentary Denies rash Neurologic Neurologic: Reports weakness; Denies headache(s) Psychiatric Psychiatric: Reports anxiety and other Details: Has chronic panic attacts Hematologic/Lymphatic Hematologic/Lymphatic: Denies easy bleeding or easy bruising EXAM Physical Exam Const Vital Signs: 02/07/24 14:36 02/07/24 15:38 02/07/24 16:00 Temperature 97.6 F L 97.6 F L 97.6 F L Temperature Source Temporal Oral Oral Pulse Rate 90 111 H 98 Respiratory Rate 22 H 18 18 Respiratory Effort Respiratory Depth Respiratory Pattern Blood Pressure 115/81 H 139/85 H 139/85 H Blood Pressure Mean 92 103 103 Pulse Ox 97 96 96 Oxygen Delivery Method Nasal Cannula Nasal Cannula Nasal Cannula Oxygen Flow Rate (L/min) 2 1.5 1.5 02/07/24 16:09 02/07/24 16:09 02/07/24 16:12 Temperature Temperature Source Pulse Rate Respiratory Rate 18 Respiratory Effort Normal Respiratory Depth Normal Respiratory Pattern Normal Blood Pressure Blood Pressure Mean Pulse Ox 94 96 Oxygen Delivery Method Nasal Cannula Nasal Cannula Nasal Cannula Oxygen Flow Rate (L/min) 2 1.5 1.5 02/07/24 16:35 02/07/24 16:35 02/07/24 17:00 Temperature 98 F Temperature Source Oral Pulse Rate 93 103 H 95 Respiratory Rate 19 H 20 H 19 H Respiratory Effort Respiratory Depth Respiratory Pattern Blood Pressure 135/84 H 117/71 Blood Pressure Mean 101 86 Pulse Ox 96 95 95 Oxygen Delivery Method Nasal Cannula Nasal Cannula Nasal Cannula Oxygen Flow Rate (L/min) 1.5 02/07/24 17:13 02/07/24 18:00 02/07/24 20:00 Temperature 97.9 F Temperature Source Oral Pulse Rate 90 99 105 H Respiratory Rate 16 17 22 H Respiratory Effort Respiratory Depth Respiratory Pattern Blood Pressure 145/91 H 139/83 H Blood Pressure Mean 109 101 Pulse Ox 99 93 Oxygen Delivery Method Room Air Nasal Cannula Oxygen Flow Rate (L/min) 2 02/07/24 20:33 Temperature 97.9 F Temperature Source Pulse Rate 105 H Respiratory Rate 22 H Respiratory Effort Respiratory Depth Respiratory Pattern Blood Pressure 139/83 H Blood Pressure Mean 101 Pulse Ox 93 Oxygen Delivery Method Oxygen Flow Rate (L/min) Positive well nourished and well developed General Appearance ED: well developed and NAD HEENT Reports moist mucous membranes Eyes PERRL Neck supple and no JVD Resp normal respiratory effort Resp Narrative: Coarse breath sounds with scattered wheeze present Cardio regular rate and regular rhythm GI non-tender and non-distended Auscultation: normoactive bowel sounds Palpation: soft; Negative for guarding Extremity normal to inspection Neuro oriented x3 Sensorium / Orientation: alert Motor Exam: Negative for general weakness Psych mental status grossly normal Skin no wounds Rashes: no rashes MDM MDM MDM Narrative Medical decision making narrative: Patient is evaluated for 3 weeks of coughing, decreased appetite and decreased energy. No report of fevers. Cough is gotten more wet sounding. Has had associated nausea. Patient is mildly tachypneic upon arrival but nontoxic-appearing. He is chronic hypoxic respiratory failure is on his baseline oxygen. Pneumonia versus COPD exacerbation versus PE on the differential. Patient does have a leukocytosis of 14.7. Does have a left shift. BMP largely normal. CTA of the chest shows mild basilar 6 or infiltrate and segmental atelectasis in the right lower lobe with associated right hemidiaphragm elevation. No PE. Given his acute cough, leukocytosis and CT findings we will treat for pneumonia. Also cover with steroids. Patient does have improvement of his respiratory symptoms with DuoNeb in the ER. He does not have any inhalers at home and will be given inhaler in the emergency room to use. Patient is able in the ER and does well with no desaturation. Will be discharged home for outpatient treatment. Given close return precautions. Patient verbalized agreement or stands plan. Patient discharged home in stable condition. Patient does have family members in the ER throughout his stay to help him at home. Lab Data Attestation: I reviewed the patient's lab results. Labs: Laboratory Results - last 24 hr 02/07/24 02/07/24 14:51 18:00 WBC 14.7 H RBC 4.66 Hgb 14.5 Hct 46.2 MCV 99.1 H MCH 31.1 MCHC 31.4 L RDW Std Deviation 47.5 H RDW Coeff of Erica 13.2 Plt Count 243 MPV 8.7 Immature Gran % (Auto) 1.200 H Neut % (Auto) 85.6 H Lymph % (Auto) 6.1 L Dolores % (Auto) 5.0 Eos % (Auto) 1.4 Baso % (Auto) 0.7 Absolute Neuts (auto) 12.6 H Absolute Lymphs (auto) 0.90 Nucleated RBC % 0 Sodium 137 Potassium 4.6 Chloride 102 Carbon Dioxide 32.0 Anion Gap 3 L BUN 22 H Creatinine 0.81 Est GFR (MDRD) Af Amer 117 Est GFR (MDRD) Non-Af 97 BUN/Creatinine Ratio 27.3 H Glucose 117 H Calcium 9.5 Urine Color Yellow Urine Clarity Clear Urine pH 5.0 Ur Specific Offerman 1.010 Urine Protein 15 H Urine Glucose (UA) Normal Urine Ketones Negative Urine Occult Blood 10 H Urine Nitrite Negative Urine Bilirubin Negative Urine Urobilinogen Normal Ur Leukocyte Esterase 25 H Urine RBC 0 SEEN Urine WBC 5-10 SEEN Ur Squamous Epith Cells 0-5 SEEN Urine Bacteria RARE Urine Mucus RARE Radiography Diagnostic Testing: Clinical Impression(s) from Imaging Studies Chest X-Ray 02/07/24 15:15 IMPRESSION: No significant change. No new infiltrate is seen. Electronically Signed: Uriel Roque MD at 15:38 EST , Chest CTA 02/07/24 16:48 IMPRESSION: Mild basilar atelectasis or infiltrate and subsegmental atelectasis in the right lower lobe in association with elevated right hemidiaphragm. No evidence for pulmonary embolus Electronically Signed: Shayne Holt MD at 17:49 EST , Discharge Plan Triage Chief Complaint: Shortness of Breath ED Provider: Alpa Jeffries Dx/Rx/DC Orders Clinical Impression: Right lower lobe pneumonia, Asthma exacerbation in COPD Prescriptions: New prednisone 20 mg tablet 40 mg PO DAILY Qty: 8 0RF doxycycline monohydrate 100 mg capsule 100 mg PO BID Qty: 14 0RF No Action acetaminophen 500 mg tablet 1,000 mg PO Q6H PRN levothyroxine 50 MCG tablet 50 mcg PO DAILY atorvastatin 40 MG tablet 40 mg PO QHS amlodipine 5 MG tablet 5 mg PO DAILY spironolactone 25 MG tablet 25 mg PO DAILY potassium chloride 10 mEq tablet extended release 20 meq PO DAILY Patient Comments: TAKE 2 TABLETS BY MOUTH ONCE DAILY WITH BREAKFAST gabapentin 100 mg capsule 200 mg PO QHS atenolol 50 mg tablet 50 mg PO DAILY Patient Comments: TAKE 1 TABLET BY MOUTH ONCE DAILY escitalopram oxalate 20 mg tablet 20 mg PO DAILY Patient Comments: TAKE 1 TABLET BY MOUTH ONCE DAILY aspirin 81 MG tablet,chewable 81 mg PO DAILY@0800 clopidogrel 75 MG tablet 75 mg PO DAILY tramadol 50 mg tablet 50 mg PO Q4H PRN PRN (Reason: Pain) 3 Days Qty: 20 0RF docusate sodium [DOK] 100 mg capsule 100 mg PO DAILY Qty: 20 0RF prednisone 20 mg tablet 60 mg PO DAILY Qty: 15 0RF doxycycline monohydrate 100 mg capsule 100 mg PO BID Qty: 10 0RF albuterol sulfate [Ventolin HFA] 90 mcg/actuation HFA aerosol inhaler 2 puff inhalation Q4H PRN PRN (Reason: Wheezing) Qty: 1 0RF Atrovent HFA 17 mcg/actuation HFA aerosol inhaler 2 puff inhalation Q8H Qty: 12.9 0RF Primary Care Provider: Shayne Moncada Referrals: Shayne Moncada MD [Primary Care Provider] - Lito Oconnor MD [Med Staff - Active Staff] - As soon as possible Activity Restrictions/Additional Instructions: You been given referral for a local primary care doctor. Use the inhaler 1 to 2 puffs every 4-6 hours as needed for shortness of breath or wheezing. Take medications as prescribed. If your breathing worsens or you require more than 3 L of oxygen over the next 2 days please return the emergency room. Print Language: Tamazight Disposition Disposition: Home, Self Care Discharge Date/Time: 02/07/24 21:38
[2024-02-07 18:11] LABS: Red Blood Cells-Urine 0 SEEN /hpf (0-5)
[2024-02-07 18:16] LABS: Color, Urine Yellow (Yellow); Glucose, Dipstick Normal (Normal); Ketone-Dipstick Negative (Negative); Leukocyte Esterase-Dipstick 25 /ul (Negative); Nitrite-Dipstick Negative (Negative); Occult Blood-Urine 10 /ul (Negative); Protein-Dipstick 15 mg/dl (Negative); Urine Bilirubin Dipstick Negative (Negative); Urine Clarity Clear (Clear); Urine Urobilinogen Normal (Normal)
[2024-02-07 18:23] LABS: Bacteria RARE /hpf (None Seen); Mucous, Urine RARE /hpf (<or=2+); Squamous Epithelial Cells - UA 0-5 SEEN /hpf (0-5); White Blood Cells 5-10 SEEN /hpf (0-5)
--- NOTE | 2024-02-07 18:40 | CM.ED ---
Social work Reason for referral: validation of AD Referral source: case find This SW identified need for patient's advance directives to be validated. This SW entered patient's room, introducing self and role at [facility]. Patient's friends, Hui and Flavia, were bedside. Flavia went to the waiting room to get patient's son, Gigi. Patient appeared confused when this SW asked about patient's advance directives. Hui stated that Gigi makes patient's medical decisions if patient needed, so Hui was not certain that patient had the advance directives filled out. Gigi entered the room; this SW introduced self and role at [facility]. Gigi stated Gigi helped patient make medical decisions when necessary, but denied having official documents filled out. Gigi stated patient's home, [facility], may actually have a living will on file; this SW asked Gigi to check and bring it in next time to have on file here at [facility]. Patient and Gigi stated they would be interested in adding patient's friend, Jenni, as the second HCPOA. Family did not have Jenni's address or phone number, so advance directives information was provided should patient and family desire to fill out documents in the future. Melyssa Lira, DENTAL ASSISTANT, SERVICE ORDER DISPATCHER
[2024-02-07] MEDS: predniSONE 20 MG Tablet 60 MG PO (20:33)
[2024-02-07] MEDS: Doxycycline 100 MG CAPSULE PO (20:33)
[2024-02-07] MEDS: Albuterol Sulfate 8 gm Inhaler (60 puffs) 2 PUFF INHALATION (21:35)
== END 2024-02-07 21:38 | disposition home or self-care (01) ==
PROVIDERS: Emergency Provider Emergency Medicine; PCP Family Medicine; Visit Provider Emergency Medicine
DX: J18.9 Pneumonia, unspecified organism (principal); J96.11 Chronic respiratory failure with hypoxia; J44.1 Chronic obstructive pulmonary disease with (acute) exacerbation; J44.0 Chronic obstructive pulmonary disease with (acute) lower respiratory infection; I25.10 Atherosclerotic heart disease of native coronary artery without angina pectoris; I10 Essential (primary) hypertension; R04.2 Hemoptysis; Z87.891 Personal history of nicotine dependence; R11.0 Nausea; Z86.73 Personal history of transient ischemic attack (TIA), and cerebral infarction without residual deficits; Z85.46 Personal history of malignant neoplasm of prostate
CPT/HCPCS: 71045; 71275; 80048; 81001; 85025; 87631; 94640; 99283; Q9967

== ENCOUNTER 2024-09-10 01:26 | Inpatient (IN) | payer MEDICARE, SELFPAY ==
[2024-09-10] VITALS (11 sets, daily range): BP systolic 124–149; BP diastolic 76–102; PULSE 62–117; RESP 17–24; TEMP 36.5–36.6; O2SAT 94–98; BMI 29.2
--- OUTSIDE RECORDS SUMMARY | 2024-09-10 00:57 | XMS RPT_ITS | CCD ---
Author Organization [facility] Care Team Providers Care Rebar Worker Name Role Phone Paddy Zaidi MD Primary Care Provider [phone] Dr. Shayne Zaidi Primary Care Provider Dr. William Paiz Emergency Provider Dr. Lamberto Dinero Admit Provider Dr. Lamberto Dinero Attending Provider Dr. Lamberto Dinero Other Provider Paddy Zaidi MD Primary Care Provider Dr. Dallas Muller Attending Provider Dr. Dallas Muller Other Provider Dr. Florence Gregg Other Provider Dr. Florence Gregg Attending Provider Paddy Zaidi MD Primary Care Provider Dr. Lito Pérez Attending Provider Dr. Lamberto Dinero Referring Provider Dr. Shayne Zaidi Referring Provider Daksha BELT LINE FEEDER, BELT LINE FEEDERYolandaC Shanon Attending Provider [phone] Paddy Zaidi MD Primary Care Provider Tanya MOBILE LAB TECHNICIAN.LABOR SPECIALIST, Hever Unavailable Shayne Zaidi Primary Care Unavailable Parker Metzger Attending Unavailable Shayne Zaidi Primary Care Unavailable Alpa Jeffries Attending Unavailable RAINA HUYNH Referring Unavailable KONTAK, PADDY R Primary Care Unavailable KONTAK, PADDY R Primary Care Unavailable FLAVIA SMITH Attending Unavailable KONTAK, PADDY R Primary Care Unavailable TANYA, HEVER Referring Unavailable KONTAK, PADDY R Attending Unavailable KONTAK, PADDY R Primary Care Unavailable KONTAK, PADDY R Primary Care Unavailable SELF Referring Unavailable TANYA, HEVER Attending Unavailable KONTAK, PADDY R Referring Unavailable KONTAK, PADDY R Primary Care Unavailable TANYA, HEVER Referring Unavailable KONTAK, PADDY R Primary Care Unavailable TANYA, HEVER Referring Unavailable KONTAK, PADDY R Primary Care Unavailable RAINA HUYNH Attending Unavailable TANYA, HEVER Referring Unavailable KONTAK, PADDY R Primary Care Unavailable RAINA HUYNH Referring Unavailable KONTAK, PADDY R Primary Care Unavailable RAINA HUYNH Referring Unavailable KONTAK, PADDY R Primary Care Unavailable RAINA HUYNH Referring Unavailable KONTAK, PADDY R Primary Care Unavailable FLAVIA SMITH Attending Unavailable Allergies Allergy Classification Reported Allergen(s) Allergy Type Date of Onset Reaction(s) Facility (20 sources) Aspirin / oxyCODONE; Translations: [OXYCODONE-ASPIR IN] Drug Allergy 5 Mental Status Change [facility] Work Phone: (20 sources) oxyCODONE; Translations: [OXYCODONE] Drug Allergy 9 Other: See Comments [facility] (20 sources) Aspirin; Translations: [ASPIRIN] Drug Allergy 9 Unknown [facility] (1 source) oxyCODONE Drug Allergy 4 [facility] Medications Current Medications Medication Drug Class(es) Dates Sig (Normalized) Sig (Original) [id number] 200 actuat albuterol 0.09 mg/actuat metered dose inhaler (20 sources) beta2-Adrenergic Agonist Start: 03-05-2024 End: 03-05-2024 take 2 puff(s) by inhalation every four hours as needed for wheezing albuterol HFA (PROVENTIL HFA, VENTOLIN HFA) 90 mcg/actuation inhaler Inhale 2 Puffs as instructed every 4 hours as needed for wheezing/shortnes s of breath. 1 Each 5 03/05/2024 Active Start: 03-15-2023 take 1 puff(s) by in halation every four hours as needed Albuterol Sulfate (Ventolin Hfa) 90 mcg/actuation HFA aerosol inhaler Active 2 PUFF INHALATION EVERY 4 HOURS NEEDED March 15, 2023 12:00am Start: 06-09-2017 End: 01-12-2018 take 1 puff(s) by inhalation every six hours Albuterol Sulfate (Ventolin Hfa) 90 mcg/actuation HFA aerosol inhaler Discontinued 2 PUFF INHALATION EVERY 6 HOURS June 08, 2017 11:00pm January 12, 2018 2:32pm amLODIPine 5 mg oral tablet (15 sources) Dihydropyridine Calcium Channel Karis Start: 07-28-2019 End: 07-28-2019 take 5 mg by mouth once daily Amlodipine Active 5 MG PO DAILY July 28, 2019 7:16pm Start: 06-09-2017 End: 07-28-2019 take 10 mg by mouth once daily Amlodipine Discontinued 10 MG PO daily 90 90 June 08, 2017 11:00pm July 28, 2019 10:10am amoxicillin 875 mg / clavulanate 125 mg oral tablet (1 source) Penicillin-class Antibacterial Start: 05-25-2022 End: 05-30-2022 take 1 tablet by mouth twice daily amoxicillin-clavulanic acid (AUGMENTIN) 875-125 mg per tablet Take 1 tablet by mouth twice daily for 5 days. 10 tablet 0 05/25/2022 05/30/2022 Active Comment on above: Take 1 tablet by mouth twice daily for 5 days. aspirin 81 mg chewable tablet (20 sources) Platelet Aggregation Inhibitor, Nonsteroidal Anti-inflammatory Drug Start: 07-28-2019 End: 12-14-2021 take 1 tablet by mouth once daily aspirin 81 mg chewable tablet Take 81 mg by mouth once daily. 08/17/2019 Active Start: 12-17-2004 End: 06-22-2021 take 325 mg by mouth once daily Aspirin Discontinued 325 MG PO DAILY@0800 September 08, 2017 11:00pm September 13, 2017 6:48am Comment on above: Take one(1) tablet d aily. Take 81 mg by mouth once daily. atenolol 50 mg oral tablet (20 sources) beta-Adrenergic Karis Start: 02-22-2022 End: 06-18-2024 take 0.5 tablet by mouth once daily atenolol (TENORMIN) 50 mg tablet Indications: Essential hypertension Take 0.5 tablets by mouth once daily. 90 tablet 3 06/19/2024 Active Start: 12-23-2021 take 0.5 tablet by m outh once daily atenolol (TENORMIN) 50 mg tablet Indications: Essential hypertension Take 0.5 tablets by mouth once daily. 90 tablet 0 12/23/2021 Active Start: 12-03-2021 End: 12-23-2021 take 50 mg by mouth once daily Atenolol Active 50 MG P O DAILY December 14, 2021 12:00am Start: 02-23-2021 End: 09-10-2021 take 1 tablet by mouth once daily atenolol (TENORMIN) 50 mg tablet Indications: Essential hypertension Take 1 tablet by mouth once daily 90 tablet 0 09/10/2021 Active Start: 07-25-2018 End: 07-28-2019 take 50 mg by mouth once daily Atenolol Discontinued 5 0 MG PO DAILY July 24, 2018 11:00pm July 28, 2019 10:10am Comment on above: Take 1 tablet by dimitri th once daily Take 1 tablet by dimitri th once daily. Take 0.5 tablets by mouth once daily. atorvastatin 40 mg oral tablet (20 sources) HMG-CoA Reductase Inhibitor Start: End: take 1 tablet by mouth once daily atorvastatin (LIPITOR) 40 mg tablet Indications: Mixed hyperlipidemia Take 1 tablet by mouth once daily. 90 tablet 3 06/19/2024 06/19/2025 Active Start: 08-24-2022 End: 06-06-2024 take 1 tablet by mouth once daily atorvastatin (LIPITOR) 40 mg tablet Indications: Mixed hyperlipidemia Take 1 tablet by mouth once daily. 90 tablet 3 06/07/2023 Active Start: 07-25-2018 End: 08-20-2022 take 1 tablet by mouth once daily atorvastatin (LIPITOR) 40 mg tablet Indications: Mixed hyperlipidemia Take 1 tablet by mouth once daily. 90 tablet 05/21/2022 08/20/2022 Discontinued Comment on above: Take 1 tablet by dimitri th once daily. docusate sodium 100 mg oral capsule (2 sources) Start: 09-22-2022 take 1 capsule by mouth once daily Docusate Sodium (Dok) 100 mg capsule Active 100 MG PO DAILY September 21, 2022 11:00pm doxycycline monohydrate 100 mg oral capsule (20 sources) Tetracycline-cla ss Drug Start: 03-15-2023 take 100 mg by mouth twice daily Doxycycline Monohydrate Active 100 MG PO TWICE A DAY March 15, 2023 12:00am Start: 05-25-2022 End: 05-30-2022 take 1 tablet by mouth twice daily doxycycline monohydrate 100 mg tablet Take 1 tablet by mouth twice daily for 5 days. 10 tablet 0 05/25/2022 05/30/2022 Active Comment on above: Take 1 tablet by dimitri th twice daily for 5 days. fluticasone / salmeterol (16 sources) Corticosteroid, beta2-Adrenergic Agonist Start: 03-27-2024 take 1 puff(s) by mouth twice daily fluticasone-salmeter ol (ADVAIR DISKUS) 250-50 mcg/dose inhaler Inhale 1 Puff as instructed two times a day. RINSE AND GARGLE MOUTH WITH WATER AFTER EACH USE. 60 Each 5 03/27/2024 Active furosemide 20 mg oral tablet (20 sources) Loop Diuretic Start: 06-21-2024 take 1 tablet by mouth once daily furosemide (LASIX) 20 mg tablet Take 1 tablet by mouth once daily 30 tablet 06/21/2024 Active Start: 06-07-2023 End: 06-19-2024 take 1 tablet by mouth once daily furosemide (LASIX) 20 mg tablet Take 1 tablet by mouth once daily 30 tablet 06/19/2024 Active gabapentin 300 mg oral capsule (20 sources) Anti-epileptic Agent Start: 07-13-2024 End: 10-11-2024 take 1 capsule by mouth twice daily gabapentin (NEURONTIN) 300 mg capsule Take 1 capsule by mouth two times a day for 90 days. 60 capsule 2 07/13/2024 10/11/2024 Active Start: 05-21-2022 End: 10-10-2024 take 2 capsules by mouth twice daily gabapentin (NEURONTIN) 100 mg capsule Indications: Peripheral polyneuropathy Take 2 capsules by mouth two times a day. For neuropathy 360 capsule 3 06/07/2023 07/12/2024 Discontinued Start: 12-14-2021 take 200 mg by mouth at bedtim e Gabapentin Active 200 MG PO AT BEDTIME December 14, 2021 12:00am Start: 06-22-2021 End: 08-21-2022 take 2 capsules by mouth once daily at bedtime gabapentin (NEURONTIN) 100 mg capsule Indications: Peripheral polyneuropathy Take 2 capsules by mouth daily at bedtime for 180 days. For neuropathy 180 capsule 0 02/22/2022 05/21/2022 Discontinued Start: 12-17-2020 End: 06-22-2021 take 1 capsule by mouth once daily at bedtime gabapentin (NEURONTIN) 100 mg capsule Indications: Peripheral polyneuropathy Take 1 capsule by mouth daily at bedtime for 180 days. For neuropathy 30 capsule 5 12/17/2020 06/22/2021 Discontinued Comment on above: Take 1 capsule by mo uth daily at bedtime for 180 days. For neuropathy Take 2 capsules by m outh daily at bedtime for 180 days. For neuropathy Take 2 capsules by m outh twice daily for 180 days. For neuropathy 200 actuat ipratropium bromide 0.017 mg/actuat metered dose inhaler (1 source) Anticholinergic Start: 024 take 1 puff(s) by inhalation every eight hours Ipratropium [place] (Atrovent Hfa) 17 mcg/actuation HFA aerosol inhaler Active 2 PUFF INHALATION Q8H 12.9 March 15, 2023 12:00am levothyroxine sodium 0.05 mg oral tablet (20 sources) l-Thyroxine Start: 023 End: 026 take 1 tablet by mouth once daily levothyroxine (SYNTHROID) 50 mcg tablet Indications: Hypothyroidism, unspecified type Take 1 tablet by mouth once daily. 90 tablet 3 08/14/2024 08/14/2025 Active Start: 07-25-2019 End: 08-20-2022 take 1 tablet by mouth once daily levothyroxine (SYNTHROID) 50 mcg tablet Indications: Hypothyroidism, unspecified type Take 1 tablet by mouth once daily. 90 tablet 3 05/21/2022 08/20/2022 Discontinued Comment on above: TAKE 1 TABLET BY DIMITRI TH ONCE DAILY ON AN EMPTY STOMACH Take 1 tablet by dimitri th once daily. LORazepam 0.5 mg oral tablet (7 sources) Benzodiazepine Start: End: 5 take 1 tablet by mouth three times daily as needed LORazepam (ATIVAN) 0.5 mg Indications: Anxiety attack Take 1 tablet by mouth three times a day as needed for up to 10 days. 10 tablet 07/13/2024 07/23/2024 Active Start: 07-28-2019 End: 08-14-2019 take 0.5 mg by mouth three times daily as needed Lorazepam Discontinued 0.5 MG PO 3 TIMES DAILY NEEDED July 27, 2019 11:00pm August 14, 2019 7:16am nitroglycerin 0.3 mg sublingual tablet (20 sources) Nitrate Vasodilator Start: 08-23-2019 End: 07-13-2024 nitroglycerin sublingual (NITROQUICK) 0.3 mg SL tablet Dissolve 1 tablet under the tongue every 5 minutes as needed. 25 tablet 07/13/2024 Active Start: 06-09-2017 End: 07-28-2019 Nitroglycerin Discontinued 0 .3 MG SL every 5 to 15 minutes June 08, 2017 11:00pm July 28, 2019 10:06am Comment on above: Dissolve 1 tablet un deyanira the tongue every 5 minutes as needed. PARoxetine hydrochloride 40 mg oral tablet (20 sources) Serotonin Reuptake Inhibitor Start: End: take 1 tablet by mouth once daily PARoxetine (PAXIL) 40 mg tablet Indications: Adjustment disorder with mixed anxiety and depressed mood Take 1 tablet by mouth once daily 90 tablet 07/13/2024 01/09/2025 Active Start: 01-02-2024 End: 02-14-2024 take 1 tablet by mouth once daily PARoxetine (PAXIL) 20 mg tablet Take 1 tablet by mouth once daily. 30 tablet 5 01/02/2024 02/14/2024 Discontinued (Changing Therapy/Dosage Form) Start: 06-07-2023 End: 12-30-2023 take 1 tablet by mouth once daily PARoxetine (PAXIL) 20 mg tablet Take 1 tablet by mouth once daily. 30 tablet 5 12/01/2023 12/30/2023 Discontinued Start: 07-25-2019 End: 12-28-2021 take 20 mg by mouth once daily Paroxetine Hcl Disconti nued 20 MG PO DAILY July 24, 2019 11:00pm December 28, 2021 9:24am potassium chloride 10 meq extended release oral tablet (20 sources) Start: 12-14-2021 take 20 mEq by mouth once daily Potassium Chloride Active 20 MEQ PO DAILY December 14, 2021 12:00am Start: 12-03-2021 End: 07-13-2024 take 2 tablets by mouth in the morning potassium chloride (K-TAB) 10 mEq tablet Indications: Hypokalemia TAKE 2 TABLETS BY MOUTH IN THE MORNING 180 tablet 07/13/2024 Active Start: 02-23-2021 End: 09-10-2021 take 2 tablets by mouth once daily at breakfast potassium chloride (K-TAB) 10 mEq tablet Indications: Hypokalemia TAKE 2 TABLETS BY MOUTH ONCE DAILY WITH BREAKFAST 180 tablet 0 09/10/2021 Active Comment on above: TAKE 2 TABLETS BY MO UTH ONCE DAILY WITH BREAKFAST Take 2 tablets by mo uth every morning. predniSONE 20 mg oral tablet (13 sources) Start: 03-15-2023 take 60 mg by mouth once daily Prednisone Active 60 MG PO DAILY March 15, 2023 12:00am Start: 12-18-2021 End: 05-21-2022 take 4 tablets by mouth at breakfast, then take 3 tablets by mouth at breakfast, then take 2 tablets by mouth at breakfast, then take 1 tablet by mouth at breakfast predniSONE (DELTASONE) 10 mg tablet TAKE 4 TABLETS BY MOUTH WITH BREAKFAST FOR 3 DAYS. THEN 3 TABLETS BY MOUTH WITH BREAKFAST FOR 3 DAYS. THEN 2 TABLETS BY MOUTH WITH BREAKFAST FOR 3 DAYS. THEN 1 TABLET BY MOUTH WITH BREAKFAST FOR 3 DAYS. 0 12/18/2021 05/21/2022 Discontinued Start: 12-18-2021 End: 12-28-2021 Prednisone Discontinued 0 MG PO DAILY December 18, 2021 12:00am December 28, 2021 9:20am Comment on above: TAKE 4 TABLETS BY MO UTH WITH BREAKFAST FOR 3 DAYS. THEN 3 TABLETS BY MOUTH WITH BREAKFAST FOR 3 DAYS. THEN 2 TABLETS BY MOUTH WITH BREAKFAST FOR 3 DAYS. THEN 1 TABLET BY MOUTH WITH BREAKFAST FOR 3 DAYS. spironolactone 25 mg oral tablet (20 sources) Aldosterone Antagonist Start: 06-20-19 End: 06-20-19 take 1 tablet by mouth once daily spironolactone (ALDACTONE) 25 mg tablet Indications: Essential hypertension Take 1 tablet by mouth once daily. 90 tablet 3 06/19/2024 06/19/2025 Active Start: 07-25-2018 End: 06-06-2024 take 1 tablet by mouth once daily spironolactone (ALDACTONE) 25 mg tablet Indications: Essential hypertension Take 1 tablet by mouth once daily. 90 tablet 3 06/07/2023 Active Comment on above: Take 1 tablet by dimitri th once daily Take 1 tablet by dimitri th once daily. traMADol hydrochloride 50 mg oral tablet (7 sources) Opioid Agonist Start: 09-22-2022 take 50 mg by mouth every four hours as needed Tramadol Active 50 MG PO EVERY 4 HOURS NEEDED 20 September 21, 2022 11:00pm Start: 07-25-2018 End: 08-05-2018 take 50-100 mg by mouth every six hours as needed Tramadol Discontinued 50 - 100 MG PO EVERY 6 HOURS NEEDED 30 July 24, 2018 11:00pm August 04, 2018 11:08pm warfarin sodium 2.5 mg oral tablet (20 sources) Vitamin K Antagonist Start: 02-16-2024 End: 2024 take 1 tablet by mouth once daily warfarin (COUMADIN) 2.5 mg tablet Take 1 tablet by mouth once daily. 90 tablet 1 04/09/2024 2024 Active Completed/Discontinued Medications Medication Drug Class(es) Dates Sig (Normalized) Sig (Original) acetaminophen 500 mg oral tablet (20 sources) Start: 08-14-2019 End: 12-28-2021 take 1000 mg by mouth every six hours as needed Acetaminophen Discontinued 1000 MG PO EVERY 6 HOURS NEEDED 240 August 16, 2019 11:00pm September 15, 2019 11:03pm Start: 07-28-2019 End: 08-14-2019 take 650 mg by mouth every six hours as needed Acetaminophen Discontinued 650 MG PO EVERY 6 HOURS NEEDED July 27, 2019 11:00pm August 14, 2019 7:16am Start: 07-25-2018 End: 07-28-2019 take 1000 mg by mouth every eight hours Acetaminophen Discontinued 1000 MG PO EVERY 8 HOURS July 25, 2019 10:26pm July 28, 2019 10:02am apixaban 5 mg oral tablet (20 sources) Factor Xa Inhibitor Start: 12-18-2021 End: 02-16-2024 take 1 tablet by mouth twice daily ELIQUIS 5 mg tab(s) Take 1 tablet by mouth two times a day. 180 tablet 3 02/14/2024 02/16/2024 Discontinued Comment on above: Take 5 mg by mouth t wice daily. Take 1 tablet by dimitri th twice daily. 120 actuat budesonide 0.16 mg/actuat / formoterol fumarate 0.0048 mg/actuat / glycopyrrolate 0.009 mg/actuat metered dose inhaler (9 sources) Corticosteroid, beta2-Adrenergic Agonist Start: 03-05-2024 End: 03-27-2024 take 2 puff(s) by inhalation twice daily budesonide-glycop yr-formoterol (BREZTRI AEROSPHERE) 160-9-4.8 mcg/actuation HFA aerosol inhaler Inhale 2 Puffs as instructed two times a day. 1 Each 5 03/05/2024 03/27/2024 Discontinued (Course of therapy completed) cephalexin 500 mg oral capsule (10 sources) Cephalosporin Antibacterial Start: 03-05-2021 End: 12-18-2021 take 500 mg by mouth every twelve hours Cephalexin Discontinued 500 MG PO EVERY 12 HOURS December 14, 2021 5:34pm December 18, 2021 8:26am clopidogrel 75 mg oral tablet (20 sources) [id number] Platelet Inhibitor Start: 07-28-2019 End: 12-14-2021 take 75 mg by mouth once daily Clopidogrel Discontinued 75 MG PO DAILY August 16, 2019 11:00pm December 14, 2021 5:34pm Comment on above: Take 1 tablet by dimitri th once daily. escitalopram 10 mg oral tablet (20 sources) Serotonin Reuptake Inhibitor Start: 01-04-2023 End: 11-29-2023 take 1 tablet by mouth once daily escitalopram oxalate (LEXAPRO) 10 mg tablet Take 1 tablet by mouth once daily. 30 tablet 05/27/2023 11/29/2023 Discontinued (Changing Therapy/Dosage Form) Start: 08-24-2022 take 1 tablet by dimitri th once daily escitalopram oxalate (LEXAPRO) 10 mg tablet Take 1 tablet by mouth once daily. 30 tablet 5 08/24/2022 Active Start: 11-16-2021 End: 08-19-2022 take 1 tablet by mouth once daily escitalopram oxalate (LEXAPRO) 20 mg tablet Take 1 tablet by mouth once daily. 90 tablet 3 05/21/2022 06/02/2022 Discontinued (Discontinued by Patient) Start: 04-09-2021 End: 09-20-2021 take 1 tablet by mouth once daily escitalopram oxalate (LEXAPRO) 20 mg tablet Take 1 tablet by mouth once daily. 90 tablet 1 06/22/2021 09/20/2021 Active Comment on above: Take 1 tablet by dimitri th once daily Take 1 tablet by dimitri th once daily. famotidine 20 mg oral tablet (10 sources) Histamine-2 Receptor Antagonist Start: 2018 End: 2021 take 20 mg by mouth once daily Famotidine Discontinued 20 MG PO DAILY July 28, 2019 7:16pm December 28, 2021 9:23am hydroCHLOROthiazide 25 mg oral tablet (5 sources) Thiazide Diuretic Start: 2017 End: 2019 take 25 mg by mouth once daily Hydrochlorothiazide Discontinued 25 MG PO daily June 08, 2017 11:00pm July 28, 2019 10:12am levoFLOXacin 500 mg oral tablet (12 sources) Quinolone Antimicrobial Start: 2021 End: 2022 take 500 mg by mouth once daily Levofloxacin Discontinued 500 MG PO DAILY@0600 6 6 December 18, 2021 12:00am December 28, 2021 9:20am Comment on above: TAKE 1 TABLET BY DIMITRI TH ONCE DAILY AT 6AM FOR 6 DAYS Menthol / Zinc Oxide (15 sources) Start: 2021 End: 2021 Menthol-Zinc Oxide Discontinued 1 APPLIC TOPICAL TWICE A DAY December 14, 2021 6:34pm December 28, 2021 10:26am Start: 12-14-2021 End: 12-28-2021 Menthol-Zinc Oxide Discontin ued 1 APPLIC TOPICAL TWICE A DAY December 14, 2021 5:34pm December 28, 2021 9:26am Start: 12-14-2021 Menthol-Zinc O xide Active 1 APPLIC TOPICAL TWICE A DAY December 14, 2021 5:34pm Start: 08-17-2019 End: 12-14-2021 Menthol-Zinc Oxide Discontin ued 1 APPLIC TOPICAL TWICE A DAY August 17, 2019 12:00am December 14, 2021 6:34pm Start: 08-17-2019 End: 12-14-2021 Menthol-Zinc Oxide Discontin ued 1 APPLIC TOPICAL TWICE A DAY 1 August 16, 2019 11:00pm December 14, 2021 5:34pm Start: 08-14-2019 End: 01-10-2020 Menthol-Zinc Oxide Discontin ued 1 APPLIC TOPICAL TWICE A DAY August 13, 2019 11:00pm January 10, 2020 10:25am nystatin 100 unt/mg topical powder (15 sources) Polyene Antifungal Start: 08-14-2019 End: 12-28-2021 Nystatin Discontinued 1 APPLIC TOPICAL TWICE A DAY December 14, 2021 5:34pm December 28, 2021 9:26am tiotropium 0.018 mg inhalation powder (5 sources) Anticholinergic Start: 09-09-2017 End: 01-12-2018 take 18 ug by inhalation once daily Tiotropium [place] Discontinued 18 MCG IH DAILY September 08, 2017 11:00pm January 12, 2018 2:22pm Problems Active Problems Problem Classification Problem Date Documented Date Episodic/Chronic Acute cerebrovascular disease (20 sources) Cerebrovascular accident; Translations: [Cerebral infarction, unspecified] Onset: 12-23-2021 12-23-2021 Chronic Acute myocardial infarction (20 sources) Myocardial infarction; Translations: [Non-ST elevation (NSTEMI) myocardial infarction] Onset: 12-18-2021 Chronic Adjustment disorders (20 sources) Adjustment disorder with mixed anxiety and depressed mood; Translations: [Adjustment disorder with mixed anxiety and depressed mood] Onset: 02-01-2017 02-01-2017 Chronic Anxiety disorders (20 sources) Anxiety; Translations: [Anxiety disorder, unspecified] Onset: 12-23-2021 12-23-2021 Chronic Cancer of prostate (20 sources) Malignant tumor of prostate; Translations: [Malignant neoplasm of prostate] Onset: 12-23-2021 12-23-2021 Chronic Cardiac dysrhythmias (20 sources) Paroxysmal ventricular tachycardia; Translations: [Ventricular tachycardia] Onset: 01-11-2005 01-11-2005 Chronic Chronic obstructive pulmonary disease and bronchiectasis (20 sources) Acute exacerbation of chronic obstructive airways disease with asthma; Translations: [Chronic obstructive pulmonary disease with (acute) exacerbation] Onset: 11-19-2015 Chronic Complication of device; implant or graft (20 sources) Disorder of coronary artery; Translations: [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] Onset: 12-23-2021 12-23-2021 Chronic Coronary atherosclerosis and other heart disease (20 sources) Disorder of cardiovascular system; Translations: [Atherosclerotic heart disease of [place] coronary artery without angina pectoris] Onset: 12-17-2004 12-19-2014 Chronic Disorders of lipid metabolism (20 sources) Hyperlipidemia; Translations: [Hyperlipidemia, unspecified] Onset: 12-17-2004 12-19-2014 Chronic E Codes: Fall (2 sources) Fall; Translations: [Unspecified fall, initial encounter] 09-22-2022 Episodic Esophageal disorders (20 sources) Gastroesophageal reflux disease; Translations: [Gastro-esophageal reflux disease without esophagitis] Onset: 12-23-2021 12-23-2021 Chronic Essential hypertension (20 sources) Essential hypertension; Translations: [Essential (primary) hypertension] Onset: 12-17-2004 12-19-2014 Chronic Fracture of lower limb (4 sources) Fracture of ankle; Translations: [Other fracture of right lower leg, initial encounter for closed fracture] 09-22-2022 Episodic Fracture of neck of femur (hip) (5 sources) Fracture of bone of hip region; Translations: [Fracture of unspecified part of neck of unspecified femur, initial encounter for closed fracture] 07-24-2018 Episodic Hypertension with complications and secondary hypertension (1 source) Hypertensive urgency ; Translations: [Hypertensive urgency] Chronic Mood disorders (20 sources) Depressive disorder; Translations: [Depression] Onset: 12-27-2008 12-27-2008 Chronic Other aftercare (1 source) Post-discharge follow-up; Translations: [Encounter for follow-up examination after completed treatment for conditions other than malignant neoplasm] Episodic Other aftercare (1 source) Long-term current use of anticoagulant; Translations: [care home (current) use of anticoagulants] 02-16-2024 Episodic Other aftercare (1 source) care home (current) use of anticoagulants; Translations: [care home current use of anticoagulant therapy] Onset: 06-29-2024 Episodic Other circulatory disease (20 sources) History of angioplasty; Translations: [Peripheral vascular angioplasty status with implants and grafts] Onset: 12-23-2021 12-23-2021 Chronic Other connective tissue disease (2 sources) Swelling of lower limb; Translations: [Other specified soft tissue disorders] 07-13-2024 Episodic Other connective tissue disease (1 source) Other specified soft tissue disorders; Translations: [Leg swelling] Onset: 07-13-2024 Episodic Other lower respiratory disease (5 sources) Dyspnea on exertion; Translations: [Other forms of dyspnea] 07-26-2019 Episodic Other lower respiratory disease (1 source) Hypoxemia; Translations: [Hypoxemia] 06-07-2023 Episodic Other lower respiratory disease (1 source) Shortness of breath; Translations: [Shortness of breath] Onset: 03-01-2024 Episodic Other lower respiratory disease (3 sources) Multiple nodules of lung; Translations: [Other nonspecific abnormal finding of lung field] 03-05-2024 Episodic Other lower respiratory disease (1 source) Hypoxia; Translations: [Hypoxemia] 03-27-2024 Episodic Other lower respiratory disease (1 source) Hypoxemia; Translations: [Hypoxia] Onset: 06-29-2024 Episodic Other male genital disorders (1 source) Secondary erectile dysfunction; Translations: [Male erectile dysfunction, unspecified] Chronic Other nervous system disorders (7 sources) Polyneuropathy; Translations: [Polyneuropathy, unspecified] Chronic Other nervous system disorders (20 sources) Idiopathic peripheral neuropathy; Translations: [Hereditary and idiopathic neuropathy, unspecified] Onset: 06-22-2021 06-22-2021 Chronic Other nervous system disorders (1 source) Hereditary and idiopathic neuropathy, unspecified; Translations: [Idiopathic peripheral neuropathy] Onset: 06-22-2021 Chronic Other nutritional; endocrine; and metabolic disorders (20 sources) Obese class I; Translations: [Obesity, Class I, BMI 30-34.9] Onset: 02-14-2024 02-14-2024 Chronic Other upper respiratory disease (20 sources) Paralysis of left vocal cord; Translations: [Paralysis of vocal cords and larynx, unilateral] Onset: 12-23-2021 12-23-2021 Chronic Other upper respiratory disease (20 sources) Paralysis of larynx; Translations: [Paralysis of vocal cords and larynx, unspecified] Onset: 01-04-2017 12-23-2021 Chronic Other upper respiratory disease (1 source) Acute bronchospasm; Translations: [Acute bronchospasm] 03-15-2023 Episodic Paralysis (20 sources) Right hemiparesis; Translations: [Hemiplegia, unspecified affecting right dominant side] Onset: 12-23-2021 12-23-2021 Chronic Peripheral and visceral atherosclerosis (3 sources) Arteriosclerotic vascular disease; Translations: [Peripheral vascular disease, unspecified] Onset: 07-13-2024 07-13-2024 Chronic Residual codes; unclassified (20 sources) Obstructive sleep apnea syndrome; Translations: [Obstructive sleep apnea (adult) (pediatric)] Onset: 12-19-2014 12-19-2014 Chronic Residual codes; unclassified (5 sources) Central sleep apnea syndrome; Translations: [Primary central sleep apnea] 07-24-2018 Chronic Residual codes; unclassified (1 source) Primary central sleep apnea; Translations: [Unspecified sleep apnea] Chronic Respiratory failure; insufficiency; arrest (adult) (4 sources) Chronic hypoxemic respiratory failure; Translations: [Chronic respiratory failure with hypoxia] Onset: 07-13-2024 03-05-2024 Chronic Screening and history of mental health and substance abuse codes (1 source) Ex-smoker; Translations: [Personal history of nicotine dependence] 03-05-2024 Episodic Thyroid disorders (20 sources) Acquired hypothyroidism; Translations: [Hypothyroidism, unspecified] Onset: 09-26-2012 03-30-2018 Chronic Unclassified (5 sources) left vocal cord paralysis 07-26-2019 Unclassified (1 source) PAD (peripheral artery disease) 07-13-2024 Unclassified (1 source) Chronic atrial fibrillation, unspecified; Translations: [Chronic atrial fibrillation (HCC)] Onset: 06-29-2024 Past or Other Problems Problem Classification Problem Date Documented Da te Episodic/Chronic Fluid and electrolyte disorders (20 sources) Hypokalemia; Translations: [Hypokalemia] Onset: 2 Episodic Immunizations and screening for infectious disease (20 sources) Patient encounter status; Translations: [Encounter for immunization] Onset: 8 12-23-2021 Episodic Malaise and fatigue (20 sources) Asthenia; Translations: [Other malaise] Onset: 2 12-23-2021 Episodic Other connective tissue disease (20 sources) Neurological symptom; Translations: [Unspecified symptoms and signs involving the nervous system] Onset: 2 12-23-2021 Episodic Other gastrointestinal disorders (20 sources) Dysphagia; Translations: [Dysphagia, unspecified] Onset: 2 12-23-2021 Episodic Other lower respiratory disease (20 sources) Dyspnea; Translations: [Dyspnea, unspecified] Onset: 0 09-04-2009 Episodic Other lower respiratory disease (1 source) Other nonspecific abnormal finding of lung field; Translations: [Lung nodules] Onset: 5 Episodic Other nervous system disorders (20 sources) Dysarthria; Translations: [Dysarthria and anarthria] Onset: 2 12-23-2021 Episodic Other nervous system disorders (20 sources) Acute postoperative pain; Translations: [Other acute postprocedural pain] Onset: 8 12-23-2021 Episodic Other screening for suspected conditions (not mental disorders or infectious disease) (20 sources) Electrocardiogram abnormal; Translations: [Abnormal electrocardiogram [ECG] [EKG]] Onset: 8 12-23-2021 Episodic Other upper respiratory disease (20 sources) Hoarse; Translations: [Dysphonia] Onset: 7 12-23-2021 Episodic Pneumonia (except that caused by tuberculosis or sexually transmitted disease) (20 sources) Pneumococcal pneumonia; Translations: [Pneumonia due to Streptococcus pneumoniae] Onset: 2 Episodic Results Test Name Value Interpretation Reference Range Facility [facility] 09-05-2024 [facility] ART[facility] PED[facility] ([id number]) 1940 M Date Time Provider Department 09/05/24 SUDHA NOE During your visit today, we recorded the following information about you: Shwetha Kendrick 09/05/2024 4:33 PM Signed Lvm and letter Provider only at [place] now Allergies As of Date: 09/05/2024 Noted Allergy Reaction ASPIRIN 04/19/2018 16 - Unknown OXYCODONE 04/19/2018 14 - Other: See Comments PERCODAN (OXYCODONE-ASPIRIN) 12/17/2004 1 - Mental Status Change Date Reviewed: 07/13/2024 Reviewed by: Talia Ann LPN - Fully Assessed Reason for Visit: Appointment [186] Prescriptions as of 09/05/2024 - levothyroxine (SYNTHROID) 50 mcg tablet Take 1 tablet by mouth once daily. - PARoxetine (PAXIL) 40 mg tablet Take 1 tablet by mouth once daily - potassium chloride (K-TAB) 10 mEq tablet TAKE 2 TABLETS BY MOUTH IN THE MORNING - nitroglycerin sublingual (NITROQUICK) 0.3 mg SL tablet Dissolve 1 tablet under the tongue every 5 minutes as needed. - gabapentin (NEURONTIN) 300 mg capsule Take 1 capsule by mouth two times a day for 90 days. - furosemide (LASIX) 20 mg tablet Take 1 tablet by mouth once daily - atorvastatin (LIPITOR) 40 mg tablet Take 1 tablet by mouth once daily. - atenolol (TENORMIN) 50 mg tablet Take 0.5 tablets by mouth once daily. - spironolactone (ALDACTONE) 25 mg tablet Take 1 tablet by mouth once daily. - warfarin (COUMADIN) 2.5 mg tablet Take 1 tablet by mouth once daily. - fluticasone-salmeterol (ADVAIR DISKUS) 250-50 mcg/dose inhaler Inhale 1 Puff as instructed two times a day. RINSE AND GARGLE MOUTH WITH WATER AFTER EACH USE. - albuterol HFA (PROVENTIL HFA, VENTOLIN HFA) 90 mcg/actuation inhaler Inhale 2 Puffs as instructed every 4 hours as needed for wheezing/shortness of breath. - doxycycline monohydrate (MONODOX) 100 mg capsule Take 100 mg by mouth two times a day. - mirtazapine (REMERON) 30 mg tablet (Discontinued) Take 1 tablet by mouth daily at bedtime. - aspirin 81 mg chewable tablet Take 81 mg by mouth once daily. Problem List As Of Date 09/05/2024 Noted Resolved Atherosclerotic cardiovascular disease [I25.10] 12/17/2004 Essential hypertension [I10] 12/17/2004 Hyperlipidemia [E78.5] 12/17/2004 PAROX VENTRIC TACHYCARD [I47.20] 01/11/2005 Depression [F32.A] 12/27/2008 Dyspnea [R06.00] 09/04/2009 Acquired hypothyroidism [E03.9] 09/26/2012 Obstructive sleep apnea on CPAP [G47.33] 12/19/2014 Adjustment disorder with mixed anxiety and depr*02/01/2017 Pure hypercholesterolemia [E78.00] 06/12/2018 Idiopathic peripheral neuropathy [G60.9] 06/22/2021 Abnormal electrocardiogram [R94.31] 10/19/2017 Anxiety [F41.9] 12/23/2021 Atherosclerotic heart disease of [place]ahu[place] coronar*10/19/2017 Cerebrovascular accident (CVA) (HCC) [I63.9] 12/23/2021 [...] ar*12/23/2021 S/P angioplasty with stent [Z95.820] 12/23/2021 Obesity, Class I, BMI 30-34.9 [E66.811] 02/14/2024 Encounter Status:Closed by SHWETHA KENDRICK on 09/05/24 Normal [facility] CNOVon 07-13-2024 CNOV Office Visit (FPWADS ) ARTURO PEDERSEN ([id number]) 1940 M Date Time Provider Department 07/13/24 4:20 PM PADDY ZAIDI FPWADS During your visit today, we recorded the following information about you: Pulse Blood pressure 98/minute 125/76 Pdady Zaidi MD 07/13/2024 5:45 PM Signed Subjective Adrian Pedersen is an 83-year-old male with a history of anxiety, presenting with dyspnea, lower extremity edema, and anxiety attacks, accompanied by his caregiver, Hui Ray, who is providing additional history. Dyspnea atherosclerotic heart disease: Pending electophys eval in [place] in November. 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 BP variable - Dyspnea and easy fatigability; primarily sedentary, only getting up to use the restroom. - Symptoms have worsened since knee replacement. - Uses supplemental oxygen intermittently; has a large oxygen tank at home. - Uses two inhalers, which provide some relief. - Denies angina. He does get a different type pain described below Lower Extremity Edema: - Bilateral lower extremity edema with associated numbness and discoloration (red and purple). - Edema has decreased recently. - Denies running out of medications. - Reports sores on toes that are slow to heal. He has thickened nails. Purple skin Anxiety: - Frequent anxiety attacks, described as a feeling of chest pressure and panic. He does not attribute this to heart, more due to the shortnes of breath - Episodes often occur in the evening. - Associated symptoms include nausea, diaphoresis, and weakness. - History of anxiety, mainly managed with various antiepressents and sporadic use of lorazepam. - Currently taking Paxil. - Reports increased anxiety since a recent fall resulting in a foot and ankle fracture. - Denies using nitroglycerin for episodes. Constitutional: (+) fatigue, (+) generalized weakness Cardiovascular: (+) chest pressure, (+) foot swelling, (-) chest pain Respiratory: (+) shortness of breath Gastrointestinal: (+) nausea Skin: (+) diaphoresis, (+) foot discoloration Neurological: (+) foot numbness Psychiatric: (+) panic attacks, (+) anxiety, (+) nervousness Objective Blood pressure 125/76, pulse 98. General: No acute distress. CV: Feet with erythema and cyanosis. Resp: MSK/Ext: Edema of feet, neuropathy of feet. Labs: - Blood work: No abnormalities reported Assessment AND Plan 1. Oxygen dependent (Z99.81) - Intermittent oxygen use; has a large oxygen tank at home. - Continue current oxygen therapy as needed. 2. 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 Atherosclerosis of [place]ahu[place] coronary artery of [place]ahu[place] heart without angina pectoris (I25.10) - Referral to cardiology in [facility] for further evaluation and management. - Advised to use nitroglycerin as needed for chest discomfort. 4. Anxiety attack (F41.0) 5. Adjustment disorder with mixed anxiety and depressed mood (F43.23) - Experiencing frequent panic attacks and anxiety. - Prescribed lorazepam 0.5 mg, 10 tablets, to be taken as needed for acute anxiety episodes; not for daily use. - Continue current Paxil regimen. 6. Leg swelling (M79.89) 7. PAD (peripheral artery disease) (I73.9) - Edema with associated numbness and discoloration. - Referral to podiatry for further evaluation and management. 8. Acquired hypothyroidism (E03.9) Lab Stable on current med Continue 9. Pure hypercholesterolemia (E78.00) Stable on med. Continue 10. Idiopathic peripheral neuropathy (G60.9) - Increasing symptoms of neuropathy. - Increased gabapentin dosage to 300 mg twice daily. - Prescription sent to pharmacy. Recording using [employer] software for draft documentation of the visit was discussed with the patient/authorized marketing representative; all questions welcomed and answered. Patient/authorized marketing representative agreed to proceed Paddy Zaidi MD Allergies As of Date: 07/13/2024 Noted Allergy Reaction ASPIRIN 04/19/2018 16 - Unknown OXYCODONE 04/19/2018 14 - Other: See Comments PERCODAN (OXYCODONE-ASPIRIN) 12/17/2004 1 - Mental Status Change Date Reviewed: 07/13/2024 Reviewed by: Talia Ann LPN - Fully Assessed Reason for Visit: Follow Up [171] Cmt: Multiple issues Primary Visit Diagnosis:Oxygen dependent [Z99.81] Other Visit Diagnoses:Atherosclerot ic cardiovascular disease [I25.10] Anxiety attack [F41.0] Leg swelling [M79.89] Adjustment disorder with mixed anxiety and depressed mood [F43.23] PAD (peripheral artery disease) [I73.9] Acquired hypothyroidism [E03.9] Pure hypercholesterolemia [E78.00] Idiopathic peripheral neuropathy [G60.9] Atherosclerosis of cahu[place] coronary artery of cahu[place] heart without angina pectoris [I25.10] Order(s):nitroglycerin sublingual (NITROQUICK) 0.3 mg SL tabletDissolve 1 tablet under the tongue every 5 minutes as needed.Disp: 25 tabletRfl: (more content not included)... Normal [facility]13-2024 [facility]UL[facility] ARTURO PEDERSEN ([id number]) 1940 M Date Time Provider Department 07/13/24 FLAVIA SMITH PULTrudiWS During your visit today, we recorded the following information about you: Flavia Smith APRN.[facility] 07/13/2024 4:40 PM Signed Review of OSH CT with most recent CT does not show worsening of right hemidiaphragm. Left lower lobe nodule no longer seen. Atelectasis in LLL but no further concern for PNA. Needs to complete overnight oxygen testing. Edwina Jones LPN 07/16/2024 9:23 AM Signed Fax to [place] for overnight records. KELLY Baker Jennifer, MA 07/16/2024 11:51 AM Signed [facility] calls to report attempts made to connect with patient by phone have been unsuccessful. We did double check numbers and one was incorrect. They will attempt new number. Corrina Lozano MA Allergies As of Date: 07/13/2024 Noted Allergy Reaction ASPIRIN 04/19/2018 16 - Unknown OXYCODONE 04/19/2018 14 - Other: See Comments PERCODAN (OXYCODONE-ASPIRIN) 12/17/2004 1 - Mental Status Change Date Reviewed: 07/13/2024 Reviewed by: Talia Ann LPN - Fully Assessed Prescriptions as of 07/16/2024 - PARoxetine (PAXIL) 40 mg tablet Take 1 tablet by mouth once daily - potassium chloride (K-TAB) 10 mEq tablet TAKE 2 TABLETS BY MOUTH IN THE MORNING - nitroglycerin sublingual (NITROQUICK) 0.3 mg SL tablet Dissolve 1 tablet under the tongue every 5 minutes as needed. - LORazepam (ATIVAN) 0.5 mg Take 1 tablet by mouth three times a day as needed for up to 10 days. - gabapentin (NEURONTIN) 300 mg capsule Take 1 capsule by mouth two times a day for 90 days. - levothyroxine (SYNTHROID) 50 mcg tablet Take 1 tablet by mouth once daily - furosemide (LASIX) 20 mg tablet Take 1 tablet by mouth once daily - atorvastatin (LIPITOR) 40 mg tablet Take 1 tablet by mouth once daily. - atenolol (TENORMIN) 50 mg tablet Take 0.5 tablets by mouth once daily. - spironolactone (ALDACTONE) 25 mg tablet Take 1 tablet by mouth once daily. - warfarin (COUMADIN) 2.5 mg tablet Take 1 tablet by mouth once daily. - fluticasone-salmeterol (ADVAIR DISKUS) 250-50 mcg/dose inhaler Inhale 1 Puff as instructed two times a day. RINSE AND GARGLE MOUTH WITH WATER AFTER EACH USE. - albuterol HFA (PROVENTIL HFA, VENTOLIN HFA) 90 mcg/actuation inhaler Inhale 2 Puffs as instructed every 4 hours as needed for wheezing/shortness of breath. - doxycycline monohydrate (MONODOX) 100 mg capsule Take 100 mg by mouth two times a day. - mirtazapine (REMERON) 30 mg tablet (Discontinued) Take 1 tablet by mouth daily at bedtime. - aspirin 81 mg chewable tablet Take 81 mg by mouth once daily. Problem List As Of Date 07/13/2024 Noted Resolved Atherosclerotic cardiovascular disease [I25.10] 12/17/2004 Essential hypertension [I10] 12/17/2004 Hyperlipidemia [E78.5] 12/17/2004 PAROX VENTRIC TACHYCARD [I47.20] 01/11/2005 Depression [F32.A] 12/27/2008 Dyspnea [R06.00] 09/04/2009 Acquired hypothyroidism [E03.9] 09/26/2012 Obstructive sleep apnea on CPAP [G47.33] 12/19/2014 Adjustment disorder with mixed anxiety and depr*02/01/2017 Pure hypercholesterolemia [E78.00] 06/12/2018 Idiopathic peripheral neuropathy [G60.9] 06/22/2021 Abnormal electrocardiogram [R94.31] 10/19/2017 Anxiety [F41.9] 12/23/2021 Atherosclerotic heart disease of [place] coronar*10/19/2017 Cerebrovascular accident (CVA) (HCC) [I63.9] 12/23/2021 [...] ar*12/23/2021 S/P angioplasty with stent [Z95.820] 12/23/2021 Obesity, Class I, BMI 30-34.9 [E66.811] 02/14/2024 Encounter Status:Closed by CLICK, FLAVIA Brush on 07/13/24 Normal [facility] CBC panel Auto (Bld)on 06-29 Erythrocyte distribution width (RBC) [Ratio] 13.9 % Normal 11.5-15.0 [facility] Comment on above: Order Comment: Speci men Type: BLOOD SPECIMENOrdering Facility: [facility] Address: [address] [place] [address] Performed By: #### 5 8410-2 ####[facility]ENTERAIDENJORD[facility] [id number] [place] [address] [place] Hematocrit (Bld) [Volume fraction] 45.0 % Normal 39.0-51.0 [facility] Comment on above: Order Comment: Speci men Type: BLOOD SPECIMENOrdering Facility: [facility] Address: [address] [place] [address] Performed By: #### 5 8410-2 ####[facility] [id number] [address] [place] Hemoglobin (Bld) [Mass/Vol] 14.1 g/dL Normal 13.0-17.0 [facility] Comment on above: Order Comment: Speci men Type: BLOOD SPECIMENOrdering Facility: [facility] Address: [address] [place] [address] Performed By: #### 5 8410-2 ####[facility] CENTERNCLIA [id number] [place] [address] [place] MCH (RBC) [Entitic mass] 29.9 pg Normal 26.0-34.0 [facility] Comment on above: Order Comment: Speci men Type: BLOOD SPECIMENOrdering Facility: [facility] Address: [address] [place] [address] Performed By: #### 5 8410-2 ####[facility] YANGWNCLIA [id number] [place] [address] [place] MCHC (RBC) [Mass/Vol] 31.3 g/dL Normal 30.5-36.0 [facility] Comment on above: Order Comment: Speci men Type: BLOOD SPECIMENOrdering Facility: [facility] Address: [address] [place] [address] Performed By: #### 5 8410-2 ####[facility] CENTERNCA [id number] [address] [place] MCV (RBC) [Entitic vol] 95.5 fL Normal 80.0-100.0 [facility] Comment on above: Order Comment: Speci men Type: BLOOD SPECIMENOrdering Facility: [facility] Address: [address] [place] [address] Performed By: #### 5 8410-2 ####[facility] [id number] [place] [address] [place] Nucleated RBC (Bld) [#/Vol] 10*3/uL Normal <0.01 [facility] Comment on above: Order Comment: Speci men Type: BLOOD SPECIMENOrdering Facility: [facility] Address: [address] [place] [address] Performed By: #### 5 8410-2 ####[facility] CAMPUSLIA [id number] [address] [place] Platelet mean volume (Bld) [Entitic vol] 9.9 fL Normal 9.0-12.7 [facility] Comment on above: Order Comment: Speci men Type: BLOOD SPECIMENOrdering Facility: [facility] Address: [address] [place] [address] Performed By: #### 5 8410-2 ####[facility] [id number] [place] [address] [place] Platelets (Bld) [#/Vol] 164 10*3/uL Normal 150-400 [facility] Comment on above: Order Comment: Speci men Type: BLOOD SPECIMENOrdering Facility: [facility] Address: [address] [place] [address] Performed By: #### 5 8410-2 ####[facility]ENTERNCLIA [id number] [place] [address] [place] RBC (Bld) [#/Vol] 4.71 10*6/uL Normal 4.20-6.00 [facility] Comment on above: Order Comment: Speci men Type: BLOOD SPECIMENOrdering Facility: [facility] Address: [address] [place] [address] Performed By: #### 5 8410-2 ####[facility]ENTERNCLIA [id number] [place] [address] [place] WBC (Bld) [#/Vol] 11.36 10*3/uL High 3.70-11.00 [facility] Comment on above: Order Comment: Speci men Type: BLOOD SPECIMENOrdering Facility: [facility] Address: [address] [place] [address] Performed By: #### 5 8410-2 ####[facility]ENTERNCLIA [id number] [place] [address] [place] CNOVon 06-29-2024 CNOV Office Visit (PULMWS ) ARTURO PEDERSEN ([id number]) 1940 M Date Time Provider Department 06/29/24 1:00 PM FLAVIA SMITH PULWM During your visit today, we recorded the following information about you: Pulse Respiration Blood pressure 69/minute 18/minute 108/64 Flavia Smith APRN.[facility] SPECIAL[facility] 06/29/2024 7:32 PM Signed Pulmonary Medicine Patients name: Arturo Campbell PCP: Paddy Zaidi MD CC: follow-up HPI: Arturo Pedersen is a 83 year old male former [id number] smoker quitting in 1992 with PMH significant for obesity, coronary artery disease s/p CABG and stent, previous stroke, GERD, HLD, prostate cancer s/p radiation, HTN, PAF on AC, central sleep apnea not wearing PAP, chronic hypoxemic respiratory failure. Current inhaled therapy Advair and PRN Albuterol. He presents today for follow-up with his machinist general. YOLANDA 03/2024 with exertional dyspnea, chest tightness and wheezing. Started on Advair at that time. Oximetry with ambulation at that time did not show need for supplemental O2 with exertion. He and his machinist general insist he can't even stand up without being short of breath and that's why he needs O2. Nocturnal oximetry ordered but has not yet been completed. He had a chest CT done after his last visit d/t previous LLL opacity and nodule. It reveals known elevation of right hemidiaphragm but do not have prior images for comparison. LLL opacity looks to be improved. Today, patient reports symptoms are unchanged. He continues to use supplemental O2 despite previous testing. He started using Advair but usually only uses once a day if he remembers. Occasionally notes a cough but not often. Endorses SOB with very minimal activity, frequently feels like he can't breathe. Wheezing on occasion. No fevers, chills, or night sweats. Has had b/l lower extremity edema despite diuretics. He was recently referred to cardiology. No recent hospitalizations or ED visits for respiratory infections. DME: [employer] 2L at night PAST MEDICAL HISTORY Diagnosis Date CABG CAD (coronary artery disease) CABG, stent Central apnea CVA (cerebral infarction) 04/16/2014 Depression GERD (gastroesophageal reflux disease) Neuropathy Other and unspecified hyperlipidemia Prostate cancer (HCC) Unspecified essential hypertension Allergies: Aspirin Unknown Oxycodone Other: See Comments Mary [Oxycodone* Mental Status Change Medication List Accurate as of June 29, 2024 9:26 AM. If you have any questions, ask your nurse or doctor. CONTINUE taking these medications albuterol HFA 90 mcg/actuation inhaler Commonly known as: PROVENTIL HFA, VENTOLIN HFA Inhale 2 Puffs as instructed every 4 hours as needed for wheezing/shortness of breath. aspirin 81 mg chewable tablet atenolol 50 mg tablet Commonly known as: TENORMIN Take 0.5 tablets by mouth once daily. atorvastatin 40 mg tablet Commonly known as: LIPITOR Take 1 tablet by mouth once daily. doxycycline monohydrate 100 mg capsule Commonly known as: MONODOX fluticasone-salmeterol 250-50 mcg/dose inhaler Commonly known as: ADVAIR DISKUS Inhale 1 Puff as instructed two times a day. RINSE AND GARGLE MOUTH WITH WATER AFTER EACH USE. furosemide 20 mg tablet Commonly known as: LASIX Take 1 tablet by mouth once daily gabapentin 100 mg capsule Commonly known as: NEURONTIN Take 2 capsules by mouth two times a day. For neuropathy levothyroxine 50 mcg tablet Commonly known as: SYNTHROID Take 1 tablet by mouth once daily. nitroglycerin sublingual 0.3 mg SL tablet Commonly known as: NITROQUICK Dissolve 1 tablet under the tongue every 5 minutes as needed. PARoxetine 40 mg tablet Commonly known as: PaxiL Take 1 tablet by mouth once daily. potassium chloride 10 mEq tablet Commonly known as: K-TAB Take 2 tablets by mouth every morning. spironolactone 25 mg tablet Commonly known as: ALDACTONE Take 1 tablet by mouth once daily. warfarin 2.5 mg tablet Commonly known as: COUMADIN Take 1 tablet by mouth once daily. DATA: I personally reviewed and analyzed all labs, radiographs and available pulmonary function testing Oximetry with Ambulation: 03/2024 PFT: 02/2024 Spirometry indicates severe obstruction. Negative bronchodilator response. The diffusing capacity (uncorrected for hemoglobin) is reduced. Review of Systems Constitutional: Negative for activity change, appetite change and unexpected weight change. HENT: Negative for congestion, mouth sores, postnasal drip and sinus pain. Respiratory: Positive for chest tightness, shortness of breath and wheezing. Negative for cough. Cardiovascular: Positive for leg swelling. Negative for palpitations. Neurological: Negative for headaches. BP 108/64 Pulse 69 Resp 18 SpO2 98% Physical Exam Vitals reviewed. Constitutional: General: He is not in acut (more content not included)... Normal [facility] Comprehensive metabolic 2000 panelon 06-29-2024 Albumin [Mass/Vol] 4.0 g/dL Normal 3.9-4.9 [facility] Comment on above: Order Comment: Speci men Type: BLOOD SPECIMENOrdering Facility: [facility] Address: [address] [place] [address] Performed By: #### 2 4323-8 ####[facility] MILLTOWNCLIA [id number] [place] [address] [place] ALP [Catalytic activity/Vol] 123 U/L High 38-113 [facility] Comment on above: Order Comment: Speci men Type: BLOOD SPECIMENOrdering Facility: [facility] Address: [address] [place] [address] Performed By: #### 2 4323-8 ####[facility] MILLWNCLIA [id number] [place] [address] [place] ALT [Catalytic activity/Vol] 12 U/L Normal 10-54 [facility] Comment on above: Order Comment: Speci men Type: BLOOD SPECIMENOrdering Facility: [facility] Address: [address] [place] [address] Performed By: #### 2 4323-8 ####[facility] MILLTOWNCLIA [id number] [place] [address] [place] Anion gap [Moles/Vol] 11 mmol/L Normal 8-15 [facility] Comment on above: Order Comment: Speci men Type: BLOOD SPECIMENOrdering Facility: [facility] Address: [address] [place] [address] Performed By: #### 2 4323-8 ####[facility] MILLTOWNCLIA [id number] [place] [address] [place] AST [Catalytic activity/Vol] 15 U/L Normal 14-40 [facility] Comment on above: Order Comment: Speci men Type: BLOOD SPECIMENOrdering Facility: [facility] Address: [address] [place] [address] Performed By: #### 2 4323-8 ####[facility] [id number] [place] [address] [place] Bilirubin [Mass/Vol] 0.8 mg/dL Normal 0.2-1.3 [facility] Comment on above: Order Comment: Speci men Type: BLOOD SPECIMENOrdering Facility: [facility] Address: [address] [place] [address] Performed By: #### 2 4323-8 ####[facility] [id number] [place] [address] [place] Calcium [Mass/Vol] 9.5 mg/dL Normal 8.5-10.2 [facility] Comment on above: Order Comment: Speci men Type: BLOOD SPECIMENOrdering Facility: [facility] Address: [address] [place] [address] Performed By: #### 2 4323-8 ####[facility]ENTERNCLIA [id number] [place] [address] [place] Chloride [Moles/Vol] 101 mmol/L Normal 98-107 [facility] Comment on above: Order Comment: Speci men Type: BLOOD SPECIMENOrdering Facility: [facility] Address: [address] [place], [place] [id number] Performed By: #### 2 4323-8 ####[facility]ENTERNCLIA [id number] [place] [address] [place] CO2 [Moles/Vol] 26 mmol/L Normal 22-30 [facility] Comment on above: Order Comment: Speci men Type: BLOOD SPECIMENOrdering Facility: [facility] Address: [address] [place] [address] Performed By: #### 2 4323-8 ####[facility] YANGCLEVELANDNCJORD[facility] [id number] [place] [address] [place] Creatinine [Mass/Vol] 0.75 mg/dL Normal 0.73-1.22 [facility] Comment on above: Order Comment: Speci men Type: BLOOD SPECIMENOrdering Facility: [facility] Address: [address] [place] [address] Performed By: #### 2 4323-8 ####[facility]ENTERNCLI [id number] [place] [address] [place] Creatinine and Glomerular filtration rate.predicted panel (S/P/Bld) 89 mL/min/1.73m??? Normal >=60 [facility] Comment on above: Order Comment: Speci men Type: BLOOD SPECIMENOrdering Facility: [facility] Address: [address] [place] [address] Result Comment: Calista mated Glomerular Filtration Rate (eGFR) is calculated using the 2020 CKD-EPI creatinine equation. This equation utilizes serum creatinine, sex, and age as parameters. The creatinine assay has traceable calibration to isotope dilution-mass spectrometry. Refer to KDIGO guidelines for clinical interpretation. In patients with unstable renal function, e.g. those with acute kidney injury, the eGFR may not accurately reflect actual GFR. Performed By: #### 2 4323-8 ####[facility]ENTERNCLIA [id number] [place] [address] [place] Glucose [Mass/Vol] 111 mg/dL High 74-99 [facility] Comment on above: Order Comment: Speci men Type: BLOOD SPECIMENOrdering Facility: [facility] Address: [address] [place] [address] Result Comment: The [place] Diabetes Association (ADA) provides guidance for cutoff values for fasting glucose and random glucose. The ADA defines fasting as no caloric intake for at least 8 hours. Fasting plasma glucose results between 100 to 125 [...] Standards of Medical Care in Diabetes 2016, [place] Diabetes [employer]. Diabetes Care. 2016.39(Suppl 1). Performed By: #### 2 4323-8 ####[facility] CAMPUSLIA [id number] [place] [address] [place] Potassium [Moles/Vol] 4.4 mmol/L Normal 3.7-5.1 [facility] Comment on above: Order Comment: Speci men Type: BLOOD SPECIMENOrdering Facility: [facility] Address: [address] [place] [address] Performed By: #### 2 4323-8 ####[facility] CAMPUSLIA [id number] [place] [address] [place] Protein [Mass/Vol] 6.9 g/dL Normal 6.3-8.0 [facility] Comment on above: Order Comment: Kika bryant Type: BLOOD SPECIMENOrdering Facility: [facility] Address: [address] [place] [address] Performed By: #### 2 4323-8 ####[facility] CAMPUSLIA [id number] [place] [address] [place] Sodium [Moles/Vol] 138 mmol/L Normal 136-144 [facility] Comment on above: Order Comment: Lanii men Type: BLOOD SPECIMENOrdering Facility: [facility] Address: [address] [id number] Performed By: #### 2 4323-8 ####[facility] CAMPUSLIA [id number] [place] [address] [place] Urea nitrogen [Mass/Vol] 23 mg/dL Normal 9-24 [facility] Comment on above: Order Comment: Speci men Type: BLOOD SPECIMENOrdering Facility: [facility] Address: [address] [place] [address] Performed By: #### 2 4323-8 ####[facility]WNCLIA [id number] [place] [address] [place] Lipid 1996 panelon 5 Cholesterol [Mass/Vol] 125 mg/dL Normal <200 [facility] Comment on above: Order Comment: Speci men Type: BLOOD SPECIMENOrdering Facility: [facility] Address: [address] [place] [address] Result Comment: <200 mg/dL, Desirable 200-239 mg/dL, Borderline high >239 mg/dL, High Performed By: #### 2 4331-1 ####[facility] [id number] [address] [place] [address] [place] [facility] [id number] [place] [address] [place]#### 3016-3 ####[facility] [id number] [address] [place] [address] [place] Cholesterol in HDL [Mass/Vol] 44 mg/dL Normal >39 [facility] Comment on above: Order Comment: Speci men Type: BLOOD SPECIMENOrdering Facility: [facility] Address: [address] [place] [address] Result Comment: 40-5 9 mg/dL, Acceptable >59 mg/dL, High: Negative risk factor for coronary heart disease <40 mg/dL, Low: Positive risk factor for coronary heart disease Performed By: #### 2 4331-1 ####[facility] [id number] [facility] [address] [place] [address] [place] [facility] [id number] [address]#### 3016-3 ####[facility] [id number] [address] Cholesterol in LDL [Mass/Vol] 66 mg/dL Normal <100 [facility] Comment on above: Order Comment: Speci men Type: BLOOD SPECIMENOrdering Facility: [facility] Address: [address] [place] [address] Result Comment: <100 mg/dL, Optimal 100-129 mg/dL, Near optimal/above optimal 130-159 mg/dL, Borderline high 160-189 mg/dL, High >189 mg/dL, Very high Secondary prevention optimal LDL Cholesterol levels are recommended to be <70 mg/dL LDL cholesterol is calculated using the Yost-NIH equation. Performed By: #### 2 4331-1 ####[facility] [id number] [address] [id number] [address]#### 3016-3 ####[facility] [id number] [address] Cholesterol in LDL/Cholesterol in HDL [Mass ratio] 1.50 {ratio} Normal <2.54 [facility] Comment on above: Order Comment: Speci men Type: BLOOD SPECIMENOrdering Facility: [facility] Address: [address] [place] [address] Result Comment: Ana red: 1. National Cholesterol Education Program ATP III Guideline At-A-Glance Quick Desk Reference: National Heart, Lung, and Blood [place]. National Institutes of Health. 2001: NIH Publication No. 01-3305. 2. An International Atherosclerosis Society position paper: global recommendations for the management of dyslipidemia: executive summary, Atherosclerosis. 2014: 232(2):410-413. Performed By: #### 2 4331-1 ####[facility] [id number] [facility]OS[facility]ITALK [address] [place] [address] [place] [facility] [id number] [address] [place]#### 3016-3 ####[facility] [id number] [facility] [address] [place] [address] [place] Cholesterol in VLDL [Mass/Vol] 11 mg/dL Normal <30 [facility] Comment on above: Order Comment: Speci men Type: BLOOD SPECIMENOrdering Facility: [facility] Address: [address] [place] [address] Performed By: #### 2 4331-1 ####[facility] [id number] [address] [place] [address] [place] [facility] [id number] [place] [address] [place]#### 3016-3 ####[facility] [id number] [address] [place] [address] [place] Cholesterol non HDL [Mass/Vol] 81 mg/dL Normal <130 [facility] Comment on above: Order Comment: Speci men Type: BLOOD SPECIMENOrdering Facility: [facility] Address: [address] [place] [address] Result Comment: <130 mg/dL, Optimal 130-159 mg/dL, Near optimal/above optimal 160-189 mg/dL, Borderline high 190-219 mg/dL, High >219 mg/dL, Very high Secondary prevention optimal non HDL Cholesterol levels are recommended to be <100 mg/dL Performed By: #### 2 4331-1 ####[facility] [id number] [facility] [address] [place] [address] [facility] [id number] [place] [address] [place]#### 3016-3 ####[facility] [id number] [place] [address] [place] Cholesterol.total/Choles terol in HDL [Mass ratio] 2.84 {ratio} Normal <5.10 [facility] Comment on above: Order Comment: Speci men Type: BLOOD SPECIMENOrdering Facility: [facility] Address: [address] [place] [address] Performed By: #### 2 4331-1 ####[facility] [id number] [address] OF [facility] [id number] [place] [address] [place]#### 3016-3 ####[facility] [id number] [place] [address] [place] FASTING TIME 12 hrs Normal [facility] Comment on above: Order Comment: Speci men Type: BLOOD SPECIMENOrdering Facility: [facility] Address: [address] [place] [address] Performed By: #### 2 4331-1 ####[facility] [id number] [address] STATES OF [facility] [id number] [address] [place]#### 3016-3 ####[facility] [id number] [place] [address] [place] Triglyceride [Mass/Vol] 71 mg/dL Normal <150 [facility] Comment on above: Order Comment: Speci men Type: BLOOD SPECIMENOrdering Facility: [facility] Address: [address] [place] [address] Result Comment: <150 mg/dL, Normal 150-199 mg/dL, Borderline high 200-499 mg/dL, High >499 mg/dL, Very high Performed By: #### 2 4331-1 ####[facility] [id number] [address] STATES OF [facility] [id number] [address]#### 3016-3 ####[facility] [id number] [address] [place] PT panel Coag (PPP)on 2024 INR Coag (PPP) [Relative time] 1.2 {INR} Normal 0.9-1.3 [facility] Comment on above: Order Comment: Speci men Type: BLOOD SPECIMENOrdering Facility: [facility] Address: [address] [place] [address] Result Comment: Marilee min K Antagonist (VKA) Therapeutic Range: INR 2 to 3 (Target INR of 2.5) Note: For patients treated with VKA drugs, such as warfarin, the [place] [employer]icians 2012 Guideline recommends a therapeutic INR range of 2 to 3 (target INR of 2.5). This recommendation includes high-risk patients with antiphospholipid syndrome with previous arterial or venous thromboembolism, current-generation mechanical or bioprosthetic aortic heart valve replacement. Note: Patients with mechanical aortic valve replacement and additional risk factors for thromboembolic events (atrial fibrillation, previous thromboembolism, LV dysfunction, hypercoagulable conditions) or an older generation mechanical AVR (i.e., ball in-Cage) or any mechanical MVR should have a INR therapeutic range of 2.5 to 3.5 (target INR of 3). Raymond GH, et al. Chest 2012, 141:7S-47S Alvino RA et al. JAC 2017, 70: 252-289 Performed By: #### 3 4528-0 ####[facility] [id number] [address] [place] PT Coag (PPP) [Time] 12.6 s Normal <13.1 [facility] Comment on above: Order Comment: Speci men Type: BLOOD SPECIMENOrdering Facility: [facility] Address: [address] [place] [address] Performed By: #### 3 4528-0 ####[facility] [id number] [address] TSH SerPl-aCncon 06-29-2024 TSH Qn 2.210 m[IU]/L Normal 0.270-4.200 [facility] Comment on above: Order Comment: Speci men Type: BLOOD SPECIMENOrdering Facility: [facility] Address: [address] [place] [address] Performed By: #### 2 4331-1 ####[facility] [id number] [address] [id number] [address]#### 3016-3 ####[facility] [id number] [address] CNOVon 03-27-2024 CNOV Office Visit (PULMWS ) ARTURO PEDERSEN ([id number]) 1940 M Date Time Provider Department 03/27/24 2:00 PM FLAVIA SMITH PULMWS During your visit today, we recorded the following information about you: Pulse Respiration Blood pressure 90/minute 18/minute 122/80 Flavia Smith, MOBILE LAB TECHNICIAN.LABOR SPECIALIST 03/27/2024 5:53 PM Signed Pulmonary Medicine Patients name: Arturo Campbell PCP: Paddy Zaidi MD CC: follow-up HPI: Arturo Pedersen is a 83 year old male former 01-shqh-ooud smoker quitting in 1992 with PMH significant for obesity, coronary artery disease s/p CABG and stent, previous stroke, GERD, HLD, prostate cancer s/p radiation, HTN, PAF on AC, central sleep apnea not wearing PAP, chronic hypoxemic respiratory failure. Currently on PRN Albuterol. He presents today for testing and follow-up. New patient 03/05/[address] Huynh for evaluation for COPD. Had also just previously been hospitalized at [facility] for Pneumonia. At his last visit, he questioned whether he still needed oxygen. Was not on maintenance inhaler, only PRN Albuterol. Had complaints of exertional dyspnea and chest congestion. He was prescribed Breztri but could not afford so he has continued to use Albuterol. Currently needing a few times a week. Also due for follow-up chest CT to evaluate pneumonia and known lung nodule. Scheduled this afternoon. Today, he reports continued exertional dyspnea with pretty minimal activity. Denies dyspnea at rest. Denies current cough or hemoptysis. Occasional chest tightness. Has frequent wheezing that prompts his machinist general to remind him to use Albuterol. No fevers, chills, or night sweats. No unintended weight loss. Occasional lower extremity edema. He reports sleeping in a chair d/t feeling like he can't breath when he lays flat. He was just referred to cardiology by PCP. DME: [employer] 2L with exertion and at night PAST MEDICAL HISTORY Diagnosis Date CABG CAD (coronary artery disease) CABG, stent Central apnea CVA (cerebral infarction) 04/16/2014 Depression GERD (gastroesophageal reflux disease) Neuropathy Other and unspecified hyperlipidemia Prostate cancer (HCC) Unspecified essential hypertension Allergies: Aspirin Unknown Oxycodone Other: See Comments Percodan [Oxycodone* Mental Status Change Medication List Accurate as of March 21, 2024 10:39 AM. If you have any questions, ask your nurse or doctor. CONTINUE taking these medications albuterol HFA 90 mcg/actuation inhaler Commonly known as: PROVENTIL HFA, VENTOLIN HFA Inhale 2 Puffs as instructed every 4 hours as needed for wheezing/shortness of breath. aspirin 81 mg chewable tablet atenolol 50 mg tablet Commonly known as: TENORMIN Take 0.5 tablets by mouth once daily. atorvastatin 40 mg tablet Commonly known as: LIPITOR Take 1 tablet by mouth once daily. BREZTRI AEROSPHERE 160-9-4.8 mcg/actuation HFA aerosol inhaler Generic drug: jbvrproicv-yxquttmy-xqu moterol Inhale 2 Puffs as instructed two times a day. doxycycline monohydrate 100 mg capsule Commonly known as: MONODOX furosemide 20 mg tablet Commonly known as: LASIX Take 1 tablet by mouth once daily. gabapentin 100 mg capsule Commonly known as: NEURONTIN Take 2 capsules by mouth two times a day. For neuropathy levothyroxine 50 mcg tablet Commonly known as: SYNTHROID Take 1 tablet by mouth once daily. nitroglycerin sublingual 0.3 mg SL tablet Commonly known as: NITROQUICK Dissolve 1 tablet under the tongue every 5 minutes as needed. PARoxetine 40 mg tablet Commonly known as: PaxiL Take 1 tablet by mouth once daily. potassium chloride 10 mEq tablet Commonly known as: K-TAB Take 2 tablets by mouth every morning. spironolactone 25 mg tablet Commonly known as: ALDACTONE Take 1 tablet by mouth once daily. warfarin 2.5 mg tablet Commonly known as: COUMADIN TAKE 1 TABLET BY MOUTH ONCE DAILY DIRECTED DATA: I personally reviewed and analyzed all labs, radiographs and available pulmonary function testing Oximetry with ambulation: 03/27/2024 PFT: 03/05/2024 Spirometry indicates severe obstruction. Negative bronchodilator response. The diffusing capacity (uncorrected for hemoglobin) is reduced. The kCO (DLCO/VA) reflects a normal transfer/diffusion of CO from the alveolar regions to the blood. Clinical correlation recommended. IMMUNIZATIONS Prevnar - xx Pneumovax 23 - xx Influenza - 02/2024 COVID-19 - xx RSV- xx Review of Systems Constitutional: Negative for activity change, appetite change and unexpected weight change. HENT: Negative for congestion, mouth sores, postnasal drip and sinus pain. Respiratory: Positive for chest tightness, shortness of breath and wheezing. Negative for cough. Cardiovascular: Positive for leg swelling. Negative for palpitations. Musculoskeletal: Positive for arthra (more content not included)... Normal [facility] CT CHEST WO IVCONon 03-27-19 CT CHEST WO IVCON * * *Final Report* * * DATE OF EXAM: Mar 27 2024 3:54PM [facility] 0541 - CT CHEST WO IVCON / PROCEDURE REASON: multiple diagnoses * * * * Physician Interpretation * * * * EXAMINATION: CHEST CT WITHOUT CONTRAST Indication: Pneumonia of left lower lobe due to infectious organism Lung nodules Technique: Spiral CT acquisition of the chest from the thoracic inlet to the upper abdomen without contrast. M: CTCW_4 CT Dose-Length Product: 378 mGy*cm CT Dose Reduction Employed: Automated exposure control(AEC) and iterative recon Comparison: None. RESULT: Limitations: None. Lines, tubes, and devices: None. Lung parenchyma and airways: Mild elevation of right hemidiaphragm and partial collapse of the right middle, lower lobes. Subsegmental atelectasis in the left lower lobe base. Mild upper lung predominant centrilobular emphysema. Minimal secretion within the upper trachea. Pleural space: No pleural effusions or thickening. No pneumothorax. Lower neck, lymph nodes, and mediastinum: There are multiple hypoattenuating lesions in the right lobe of the thyroid gland measuring up to 1.4 cm. Left thyroid gland is atrophic. No lymphadenopathy in the supraclavicular, axillary regions. Mildly enlarged 1 cm subaortic lymph node on image 110. The esophagus is unremarkable. Heart, pericardium, and thoracic vessels: The thoracic aorta and main pulmonary artery are normal in caliber. Mild left atrial enlargement. Status post CABG surgery with severe cahuilla coronary artery atherosclerotic calcifications are noted, although the study is not optimized for coronary assessment. No pericardial effusion or thickening. Mitral valve annulus and aortic valve calcifications are present. Severe atherosclerotic calcifications of the thoracic aorta and arch vessels. Bones and soft tissues: No destructive bone lesion. Chest wall is unremarkable. Degenerative changes are seen. Unchanged sclerotic lesion within the left scapula, likely bony alignment. Median sternotomy. Upper abdomen: Gallstones without evidence of cholecystitis. Localizer images: No additional findings. IMPRESSION: 1. No CT evidence of acute abnormality in the chest. Mild elevation of right hemidiaphragm and partial collapse of the right middle, lower lobes. 2. Smoking related lung injury. 3. No significantly enlarged lymph nodes in the chest. Ccu Nurse: FATOUMATA Transcribe Date/Time: Mar 31 2024 5:10P Dictated by : VIDA CAAL MD This examination was interpreted and the report reviewed and electronically signed by: VIDA CAAL MD on Mar 31 2024 5:18PM EST [id number] Normal [facility] OXIMETRY WITH AMBULATIONon 0 03-27-2024 Shelly Sims RPF T 03/27/2024 1:50 PM RESPIRATORY THERAPY OXIMETRY WITH AMBULATION Oximetry with Ambulation Test for This Encounter O2 Device O2 Adapter NC O2 Flow SpO2% HR Activity Ft Walked (ft) Time (min) Avg Speed (MPH) R/A 96 107 Resting R/A 95 124 Walking, usual pace 290 3 1.1 General Information Pulse Oximetry Site Total Time Spent Walking Assistance/O2 Supply Carrier Forehead 30 Wheeled Walker NAME: MARY Guillaume PATIENT NAME: Arturo Salinasgess DATE: March 27, 2024 TIME: 1:49 PM Comment: Patient does not have a faster pace [facility] Tessa 03-21-2024 [facility] Telephone (ELIZABETH) PEDERSENARTURO Mann ([id number]) 1940 M Date Time Provider Department 03/21/24 PADDY ZAIDI During your visit today, we recorded the following information about you: Isabell Sood, RN 03/21/2024 12:24 PM Signed Patient states he has discussed some issues he has had with provider concerning times he wakes up in a panic, scared noting sl. Pressure under the lt breast, at times cannot catch his breath. Wears 2 L oxygen all of the time. An episode may last 10 minutes but then he feels fine, did have an episode this am that lasted about 10 minutes, reports he feels fine now. Hui feels since he has been on the Coumadin he does not appear to have the above episodes as frequently. Hui states he has different type of panic attacks at times, the increase in the Paxil, (done on 02/14/2024) does not really appear to help those attacks. Has an appt. With Cardiology in November, does not want to wait that long to see someone about these episodes. Hui is going to call to see if he can be seen earlier by Cardiology, if not will make an appt. To see PCP, advised PCP does have availability to be seen. To go to the ED if sx warrant medical attention. Hever Martinez APRN.SHANNAN 03/21/2024 12:52 PM Signed Please offer appointment with Dr. Zaidi this week Hever Martínez APRN.Lacie Danielle 03/21/2024 1:07 PM Signed I spoke with Adrian, and he is now scheduled to see Dr. Zaidi on Tuesday. There were many available times remaining for this week, but Adrian and his caregiver declined all options. They said he does not feel it is an emergency. I explained primary care team really wanted him to be seen this week, but they declined. Hever Otoole APRN.SHANNAN 03/22/2024 10:28 AM Signed Noted, Tuesday is fine Hever Martínez APRN.CNP Allergies As of Date: 03/21/2024 Noted Allergy Reaction ASPIRIN 04/19/2018 16 - Unknown OXYCODONE 04/19/2018 14 - Other: See Comments PERCODAN (OXYCODONE-ASPIRIN) 12/17/2004 1 - Mental Status Change Date Reviewed: 03/05/2024 Reviewed by: Edwina Jones LPN - Fully Assessed Reason for Visit: Appointment [186] Prescriptions as of 03/22/2024 - furosemide (LASIX) 20 mg tablet Take 1 tablet by mouth once daily. - warfarin (COUMADIN) 2.5 mg tablet TAKE 1 TABLET BY MOUTH ONCE DAILY DIRECTED - ztgigoyjre-aqvmgrjw-iqb moterol (BREZTRI AEROSPHERE) 160-9-4.8 mcg/actuation HFA aerosol inhaler Inhale 2 Puffs as instructed two times a day. - albuterol HFA (PROVENTIL HFA, VENTOLIN HFA) 90 mcg/actuation inhaler Inhale 2 Puffs as instructed every 4 hours as needed for wheezing/shortness of breath. - doxycycline monohydrate (MONODOX) 100 mg capsule Take 100 mg by mouth two times a day. - PARoxetine (PAXIL) 40 mg tablet Take 1 tablet by mouth once daily. - potassium chloride (K-TAB) 10 mEq tablet Take 2 tablets by mouth every morning. - levothyroxine (SYNTHROID) 50 mcg tablet Take 1 tablet by mouth once daily. - spironolactone (ALDACTONE) 25 mg tablet Take 1 tablet by mouth once daily. - atorvastatin (LIPITOR) 40 mg tablet Take 1 tablet by mouth once daily. - gabapentin (NEURONTIN) 100 mg capsule Take 2 capsules by mouth two times a day. For neuropathy - atenolol (TENORMIN) 50 mg tablet Take 0.5 tablets by mouth once daily. - mirtazapine (REMERON) 30 mg tablet (Discontinued) Take 1 tablet by mouth daily at bedtime. - aspirin 81 mg chewable tablet Take 81 mg by mouth once daily. - nitroglycerin sublingual (NITROQUICK) 0.3 mg SL tablet Dissolve 1 tablet under the tongue every 5 minutes as needed. Problem List As Of Date 03/21/2024 Noted Resolved Atherosclerotic cardiovascular disease [I25.10] 12/17/2004 Essential hypertension [I10] 12/17/2004 Hyperlipidemia [E78.5] 12/17/2004 PAROX VENTRIC TACHYCARD [I47.29] 01/11/2005 Depression [F32.A] 12/27/2008 Dyspnea [R06.00] 09/04/2009 Acquired hypothyroidism [E03.9] 09/26/2012 Obstructive sleep apnea on CPAP [G47.33] 12/19/2014 Adjustment disorder with mixed anxiety and depr*02/01/2017 Pure hypercholesterolemia [E78.00] 06/12/2018 Idiopathic peripheral neuropathy [G60.9] 06/22/2021 Abnormal electrocardiogram [R94.31] 10/19/2017 Anxiety [F41.9] 12/23/2021 Atherosclerotic heart disease of cahuilla coronar*10/19/2017 Cerebrovascular accident (CVA) (HCC) [I63.9] 12/23/2021 Chronic obstructive asthma with exacerbation (H*12/18/2021 Dysarthria [R47.1] 12/23/2021 Dysphagia [R13.10] 12/23/2021 Encounter for immunization [Z23] 01/12/2018 Gastroesophageal reflux disease [K21.9] 12/23/2021 Hoarseness [R49.0] 11/05/2016 Hypokalemia [E87.6] 12/23/2021 Malignant neoplasm of prostate (HCC) [C61] 12/23/2021 Moderate COPD (chronic obstructive pulmonary di*11/19/2015 Myocardial infarction (HCC) [I21.9] 12/18/2021 Neurological symptoms [R29.90] 12/23/2021 Other acute postp (more content not included)... Normal [facility] CNPNon 03-06-2024 CNPN Telephone (PULTrudiWS) ARTURO PEDERSEN ([id number]) 1940 M Date Time Provider Department 03/06/24 RAINA HUYNH During your visit today, we recorded the following information about you: Judy Wong MA 03/06/2024 9:29 AM Signed Analilia - Pharmacist from [facility] calling and asking if there is an alternative to the Breztri inhaler? Patient has a $100.00 copay and is unable to afford it. Edwina Jones LPN 03/06/2024 10:10 AM Signed Breztri and Trelegy both showing as preferred level 1 in orders tab. Per [employer] SERS plan formulary list, preferred brand name drugs come with 25% copay (max of $100) per 30 day supply. Patient also has the option of mail order for max copay of $200 for a 90 day supply. Spoke with patient's son Gila re: same. If medication is cost prohibitive we could see if SW can inquire about medication assistance. Edwina Jones LPN Allergies As of Date: 03/06/2024 Noted Allergy Reaction ASPIRIN 04/19/2018 16 - Unknown OXYCODONE 04/19/2018 14 - Other: See Comments PERCODAN (OXYCODONE-ASPIRIN) 12/17/2004 1 - Mental Status Change Date Reviewed: 03/05/2024 Reviewed by: Edwina Jones LPN - Fully Assessed Prescriptions as of 03/08/2024 - odhkwwdlwk-slbgnsys-dku moterol (BREZTRI AEROSPHERE) 160-9-4.8 mcg/actuation HFA aerosol inhaler Inhale 2 Puffs as instructed two times a day. - albuterol HFA (PROVENTIL HFA, VENTOLIN HFA) 90 mcg/actuation inhaler Inhale 2 Puffs as instructed every 4 hours as needed for wheezing/shortness of breath. - warfarin (COUMADIN) 2.5 mg tablet Take 1 tablet by mouth daily as directed. - doxycycline monohydrate (MONODOX) 100 mg capsule Take 100 mg by mouth two times a day. - PARoxetine (PAXIL) 40 mg tablet Take 1 tablet by mouth once daily. - potassium chloride (K-TAB) 10 mEq tablet Take 2 tablets by mouth every morning. - levothyroxine (SYNTHROID) 50 mcg tablet Take 1 tablet by mouth once daily. - spironolactone (ALDACTONE) 25 mg tablet Take 1 tablet by mouth once daily. - atorvastatin (LIPITOR) 40 mg tablet Take 1 tablet by mouth once daily. - gabapentin (NEURONTIN) 100 mg capsule Take 2 capsules by mouth two times a day. For neuropathy - atenolol (TENORMIN) 50 mg tablet Take 0.5 tablets by mouth once daily. - furosemide (LASIX) 20 mg tablet Take 1 tablet by mouth once daily. - mirtazapine (REMERON) 30 mg tablet (Discontinued) Take 1 tablet by mouth daily at bedtime. - aspirin 81 mg chewable tablet Take 81 mg by mouth once daily. - nitroglycerin sublingual (NITROQUICK) 0.3 mg SL tablet Dissolve 1 tablet under the tongue every 5 minutes as needed. Problem List As Of Date 03/06/2024 Noted Resolved Atherosclerotic cardiovascular disease [I25.10] 12/17/2004 Essential hypertension [I10] 12/17/2004 Hyperlipidemia [E78.5] 12/17/2004 PAROX VENTRIC TACHYCARD [I47.29] 01/11/2005 Depression [F32.A] 12/27/2008 Dyspnea [R06.00] 09/04/2009 Acquired hypothyroidism [E03.9] 09/26/2012 Obstructive sleep apnea on CPAP [G47.33] 12/19/2014 Adjustment disorder with mixed anxiety and depr*02/01/2017 Pure hypercholesterolemia [E78.00] 06/12/2018 Idiopathic peripheral neuropathy [G60.9] 06/22/2021 Abnormal electrocardiogram [R94.31] 10/19/2017 Anxiety [F41.9] 12/23/2021 Atherosclerotic heart disease of cahu[place] coronar*10/19/2017 Cerebrovascular accident (CVA) (HCC) [I63.9] 12/23/2021 [...] ar*12/23/2021 S/P angioplasty with stent [Z95.820] 12/23/2021 Obesity, Class I, BMI 30-34.9 [E66.811] 02/14/2024 Encounter Status:Closed by EDWINA JONES on 03/08/24 Normal [facility] Telephone (FPWADS) ARTURO PEDERSEN ([id number]) 1940 M Date Time Provider Department 03/06/24 PADDY ZAIDI FPWADS During your visit today, we recorded the following information about you: Paddy Zaidi MD 03/06/2024 2:04 PM Signed INR is a little low , have you been taking warfarin 2.5 mg daily every day? May need to increase dose a bit. Please review with patient and advise. MD True Sheehan Mary Kay, FREIDA 03/07/2024 9:49 AM Signed Called all numbers listed in chart- no answer. No VM available to leave message. Not on MYChart. Will need to try again later. FREIDA Olivarez Jacqueline, RN 03/12/2024 2:40 PM Signed Called pt, no answer. LVM to call office back Violetta Humphrey RN 03/16/2024 1:03 PM Signed Spoke to Hui- states he has been taking warfarin every day, 2.5 mg. Never misses a day. Call Hui back with response [phone]-did advise her to clean out VM so we can leave messages. FREIDA Olivarez Jeffery R, MD 03/16/2024 5:19 PM Signed Just take 1 time dose of 5 mg. One extra pill just one dose. Check INR in 2 weeks MD True Sheehan Mary Kay, FREIDA 03/17/2024 9:32 AM Signed Called Hui at [phone] Vm still full-could not leave message. Called all other listed numbers- no answer. VM's are all full-could not leave message. Not active on MyChart. Will need to try again later. FREIDA Olivarez, Natalia, RN 03/19/2024 10:52 AM Signed Called [phone]. No answer. Mailbox still full. Isabell Sood, FREIDA 03/21/2024 12:20 PM Signed Spoke to Hui and patient at length. Patient will take 7.5 mg of Coumadin tomorrow then resume taking 2.5 mg like he has been. Will have BW done around 03/29. Tracker done Allergies As of Date: 03/06/2024 Noted Allergy Reaction ASPIRIN 04/19/2018 16 - Unknown OXYCODONE 04/19/2018 14 - Other: See Comments PERCODAN (OXYCODONE-ASPIRIN) 12/17/2004 1 - Mental Status Change Date Reviewed: 03/05/2024 Reviewed by: Edwina Jones LPN - Fully Assessed Reason for Visit: Anticoagulation [8] Prescriptions as of 03/21/2024 - warfarin (COUMADIN) 2.5 mg tablet TAKE 1 TABLET BY MOUTH ONCE DAILY DIRECTED - zfuxccobos-squsikvp-xcj moterol (BREZTRI AEROSPHERE) 160-9-4.8 mcg/actuation HFA aerosol inhaler Inhale 2 Puffs as instructed two times a day. - albuterol HFA (PROVENTIL HFA, VENTOLIN HFA) 90 mcg/actuation inhaler Inhale 2 Puffs as instructed every 4 hours as needed for wheezing/shortness of breath. - doxycycline monohydrate (MONODOX) 100 mg capsule Take 100 mg by mouth two times a day. - PARoxetine (PAXIL) 40 mg tablet Take 1 tablet by mouth once daily. - potassium chloride (K-TAB) 10 mEq tablet Take 2 tablets by mouth every morning. - levothyroxine (SYNTHROID) 50 mcg tablet Take 1 tablet by mouth once daily. - spironolactone (ALDACTONE) 25 mg tablet Take 1 tablet by mouth once daily. - atorvastatin (LIPITOR) 40 mg tablet Take 1 tablet by mouth once daily. - gabapentin (NEURONTIN) 100 mg capsule Take 2 capsules by mouth two times a day. For neuropathy - atenolol (TENORMIN) 50 mg tablet Take 0.5 tablets by mouth once daily. - furosemide (LASIX) 20 mg tablet Take 1 tablet by mouth once daily. - mirtazapine (REMERON) 30 mg tablet (Discontinued) Take 1 tablet by mouth daily at bedtime. - aspirin 81 mg chewable tablet Take 81 mg by mouth once daily. - nitroglycerin sublingual (NITROQUICK) 0.3 mg SL tablet Dissolve 1 tablet under the tongue every 5 minutes as needed. Problem List As Of Date 03/06/2024 Noted Resolved Atherosclerotic cardiovascular disease [I25.10] 12/17/2004 Essential hypertension [I10] 12/17/2004 Hyperlipidemia [E78.5] 12/17/2004 PAROX VENTRIC TACHYCARD [I47.29] 01/11/2005 Depression [F32.A] 12/27/2008 Dyspnea [R06.00] 09/04/2009 Acquired hypothyroidism [E03.9] 09/26/2012 Obstructive sleep apnea on CPAP [G47.33] 12/19/2014 Adjustment disorder with mixed anxiety and depr*02/01/2017 Pure hypercholesterolemia [E78.00] 06/12/2018 Idiopathic peripheral neuropathy [G60.9] 06/22/2021 Abnormal electrocardiogram [R94.31] 10/19/2017 Anxiety [F41.9] 12/23/2021 Atherosclerotic heart disease of cahu[place] coronar*10/19/2017 Cerebrovascular accident (CVA) (HCC) [I63.9] 12/23/2021 [...] [G89.18] 09/13/2017 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 Normal [facility] CNOVon 03-05-2024 CNOV Office Visit (PULMWS ) ARTURO PEDERSEN ([id number]) 1940 M Date Time Provider Department 03/05/24 3:15 PM RAINA HUYNH PULMWS During your visit today, we recorded the following information about you: Pulse Respiration Blood pressure Weight 112/minute 14/minute 122/68 96.2 kg Height 1.715 m Raina Huynh MD 03/05/2024 4:00 PM Signed . Respiratory [place] Note Patient name: Arturo Pedersen PCP: Paddy Zaidi MD Referring Physician: Hever Martínez CNP Consultation requested by Hever Martínez for an opinion regarding COPD. My final recommendations will be communicated back to the requesting physician by way of shared Medical record or letter to requesting physician via US mail. CC: COPD HPI: Arturo Pedersen 83 year old male former [id number]-drpm smoker quitting in 1992 with PMH significant for obesity, coronary artery disease s/p CABG and stent, previous stroke, GERD, HLD, prostate cancer s/p radiation, HTN, PAF on AC, central sleep apnea not wearing PAP, chronic hypoxemic respiratory failure being sent for evaluation of COPD. Recently hospitalized at [facility] for pneumonia. CT of the chest shows left lower lobe infiltrate, atelectasis in right lower lobe and a left lower lobe nodule. He was discharged on albuterol as needed. He does not have maintenance inhaler. He is questioning whether he needs to continue with supplemental oxygen. Main pulmonary symptoms are dyspnea with exertion, chest congestion, difficulty expectorating mucus, no audible wheezing. He denies any chest pain. He denies history of recurrent bronchitis. DME: [employer] DATA: PFT: [facility]FT [facility] 10/23/2018; FVC 2.41 L 57% FEV1 1.62 L 54% FEV1/FVC 67% No improvement post-bronchodilator TLC 5.01 L 76% RV 2.60 L 94% RV/TLC 52% DLCO 15.2 73% Imaging / Diagnostic Studies: [facility] MR#: [id number] Acct: [id number] Name: ARTURO PEDERSEN Rep #: [id number] : 1940 M 83 From: Shayne Holt MD PCP: Dr. Shayne Zaidi MD Status: REG ER Study: CTA Chest W/WO Contrast Date of Exam: 02/07/24 STUDY: CTA CHEST COMPARISON: December 15, 2021 FINDINGS: Normal enhancement of the main pulmonary artery and right and left pulmonary arteries. Normal enhancement of the bilateral peripheral pulmonary arteries. There is no demonstrated pulmonary embolism. Mild atherosclerotic changes of the aorta without evidence for aneurysm There is no demonstrated aortic dissection. Heart size is normal. There is multifocal coronary artery calcification. Mildly enlarged hilar and mediastinal nodes largest measuring approximately 1.5 to 2 cm size range . Normal visualized trachea and bronchi. The lungs are well expanded. There is mild atelectasis or infiltrate in left lower lobe There is loss of volume in right hemithorax with elevation of the right hemidiaphragm and subsegmental atelectasis in the right lower lobe Normal pleura. Postop change status post median sternotomy and CABG. Normal osseous structures. Multiple calcified gallstones without evidence for acute cholecystitis. IMPRESSION: Mild basilar atelectasis or infiltrate and subsegmental atelectasis in the right lower lobe in association with elevated right hemidiaphragm. No evidence for pulmonary embolus Review of CT shows mild emphysema, elevated right hemidiaphragm with basilar atelectasis, nodular infiltrate and nodule in left lower lobe PAST MEDICAL HISTORY Diagnosis Date CABG CAD (coronary artery disease) CABG, stent Central apnea CVA (cerebral infarction) 04/16/2014 Depression GERD (gastroesophageal reflux disease) Neuropathy Other and unspecified hyperlipidemia Prostate cancer (HCC) Unspecified essential hypertension ALLERGIES Allergen Reactions Aspirin Unknown Oxycodone Other: See Comments Percodan [Oxycodone* Mental Status Change levothyroxine (SYNTHROID) 50 mcg tablet Take 1 tablet by mouth once daily. spironolactone (ALDACTONE) 25 mg tablet Take 1 tablet by mouth once daily. atorvastatin (LIPITOR) 40 mg tablet Take 1 tablet by mouth once daily. gabapentin (NEURONTIN) 100 mg capsule Take 2 capsules by mouth two times a day. For neuropathy atenolol (TENORMIN) 50 mg tablet Take 0.5 tablets by mouth once daily. furosemide (LASIX) 20 mg tablet Take 1 tablet by mouth once daily. aspirin 81 mg chewable tablet Take 81 mg by mouth once daily. nitroglycerin sublingual (NITROQUICK) 0.3 mg SL tablet Dissolve 1 tablet under the tongue every 5 minutes as needed. gsofpxmvzv-ooptmkne-nvp moterol (BREZTRI AEROSPHERE) 160-9-4.8 mcg/actuation HFA aerosol inhaler Inhale 2 Puffs as instructed two times a day. albuterol HFA (PROVENTIL HFA, VENTOLIN HFA) 90 mcg/actuation inhaler Inhale 2 Puffs as instructed every 4 hours as needed for wheezing/shortness of breath. warfarin (COUMADIN) (more content not included)... Normal [facility] No Panel Informationon 03-05 DLCO (ml/min/mmHg) 12.07 ml/min/mmHg [facility] DLCO LLN (ml/min/mmHg) 11.87 ml/min/mmHg C [facility] DLCO PREDICTED (ml/min/mmHg) 21.80 ml/min/mmHg [facility] DLCO ULN (ml/min/mmHg) 31.74 ml/min/mmHg [facility] DLCO/VA (ml/min/mmHg/L) 4.14 ml/m in/mmHg/ L [facility] DLCO/VA PREDICTED (ml/min/mmHg/L) 3.63 ml/min/mmHg/ L [facility] DLCOcor PREDICTED (ml/min/mmHg) 21.80 ml/min/mmHg [facility] ERV PREDICTED (L) 1.12 L/S [facility] FEF25% POST (L/S) 3.52 L/S [facility] FEF25% PRE (L/S) 2.38 L/S [facility] FUB81-98% LLN (L/S) 0.63 L/S [facility] HNL27-44% POST (L/S) 0.46 L/S [facility] PSI02-12% PRE (L/S) 0.42 L/S [facility] EYW65-11% PREDICTED (L/S) 1.77 L/S [facility] FEF75% LLN (L/S) 0.13 L/S [facility] FEF75% POST (L/S) 0.13 L/S [facility] FEF75% PRE (L/S0 0.14 L/S [facility] FEF75% PREDICTED (L/S) 0.41 L/S [facility] FEF75% ULN (L/S) 1.23 L/S [facility] FET POST (S) 10.37 S [facility] FET PRE (S) 11.27 S [facility] FEV1 LLN (L) 1.76 L [facility] FEV1 PRE (L) 1.19 L [facility] FEV1 PREDICTED (L) 2.46 L [facility] FEV1 ULN (L) 3.11 L [facility] FEV1/FVC LLN (%) 61 % [facility] FEV1/FVC POST (%) 64 % [facility] FEV1/FVC PRE (%) 60 % [facility] FEV1/FVC PREDICTED (%) 76 % [facility] FEV1_POST (L) 1.23 L [facility] FVC LLN (L) 2.46 L [facility] FVC POST (L) 1.93 L [facility] FVC PRE (L) 1.97 L [facility] FVC PREDICTED (L) 3.35 L [facility] FVC ULN (L) 4.26 L [facility] IC PREDICTED (L) 2.24 L/S [facility] PEF LLN (L/S) 3.95 L/S [facility] PEF POST (L/S) 4.29 L/S [facility] PEF PRE (L/S) 4.00 L/S [facility] PEF ULN (L/S) 8.26 L/S [facility] SVC LLN (L) 2.46 L/S [facility] SVC PREDICTED (L) 3.35 L/S [facility] SVC ULN (L) 4.26 L/S [facility] VA (L) 2.92 L [facility] VA PREDICTED (L) 6.34 L [facility] [address], [place] [address] Test Date: 2024-03-05 Pat Name: ARTURO PEDERSEN Department: Room: Gender: M 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 No contraindications or sensitivities were noted. Meds taken: no inhaled respiratory medications taken before testing. PRE-BRONCHODILATOR: Current ATS/ERS acceptability and repeatability standards for spirometry met. Start of test and EOFE criteria met. The two acceptable DLCO measurements obtained were repeatable. 4 puffs Albuterol (360 mcg) delivered by MDI via holding chamber. HR pre = 107 /min, HR post = 106 /min. POST-BRONCHODILATOR: The two largest FVCs were repeatable. The two largest FEV1s were repeatable. Extrapolated volume greater than ATS/ERS allows; FEV1 may not be valid. IMPRESSION: Spirometry indicates severe obstruction. Negative bronchodilator response. The diffusing capacity (uncorrected for hemoglobin) is reduced. The kCO (DLCO/VA) reflects a normal transfer/diffusion of CO from the alveolar regions to the blood. Clinical correlation recommended. Electronically Signed On 03-05-2024 16:02:40 EST by Raina Huynh MD ID: [id number] Name: ARTURO PEDERSEN Race: White Ht: 67.52 in Wt: 212.00 lbs Age: 83 Gender: Male : 1940 Dx: COPD_ Smoking Hx: Non-smoker Doctor: RAINA HUYNH Test Date: 03/05/2024 Site: [facility]: [facility] PRE-BRONCH POST-BRONCH Pre LLN Pred ULN %Pred Post %Pred %Chg SPIROMETRY FVC (L) 1.97 2.46 3.35 4.26 58 1.93 57 -1 FEV1 (L) 1.19 1.76 2.46 3.11 48 1.23 50 1 FEV1/FVC 0.60 0.61 0.76 0.87 79 0.64 84 6 PEF L/s (L/sec) 4.00 3.95 6.11 8.26 65 4.29 70 7 FEF50 (L/sec) 0.68 0.98 3.10 5.22 21 0.75 24 9 FIF50 (L/sec) 2.19 1.74 -20 FEF50/FIF50 0.31 90-100 0.43 37 FIVC (L) 1.96 1.86 -4 GKO08-87 (L/sec) 0.42 0.63 1.77 3.49 23 0.46 26 11 Time (sec) 11.27 10.37 -8 FET PEF (sec) 0.08 0.10 35 RAY (L) 0.08 0.14 66 Vol Extrap % (%) 4 7 70 LUNG DIFFUSION DLCOunc (ml/min/mmHg) 12.07 11.87 21.80 31.74 55 VA (L) 2.92 4.98 6.34 7.71 46 DLunc/VA (ml/min/mmHg/L) 4.14 2.43 3.63 4.83 114 BHT (sec) 9.78 IVC (L) 1.86 Comments: Medications and Allergies were reviewed for possible drug interactions per policy. No contraindications or sensitivities were noted. Meds taken: no inhaled respiratory medications taken before testing. PRE-BRONCHODILATOR: Current ATS/ERS acceptability and repeatability standards for spirometry met. Start of test and EOFE criteria met. The two acceptable DLCO measurements obtained were repeatable. 4 puffs Albuterol (360 mcg) delivered by MDI via holding chamber. HR pre = 107 /min, HR post = 106 /min. POST-BRONCHODILATOR: The two largest FVCs were repeatable. The two largest FEV1s were repeatable. Extrapolated volume greater than ATS/ERS allows; FEV1 may not be valid. PULMONARY FUNCTION LAB [facility] PT panel Coag (PPP)on 2024 INR Coag (PPP) [Relative time] 1.5 {INR} High 0.9-1.3 [facility] Comment on above: Order Comment: Speci men Type: BLOOD SPECIMEN [facility] Address: [address] [place] [address] Result Comment: Marilee min K Antagonist (VKA) Therapeutic Range: INR 2 to 3 (Target INR of 2.5) Note: For patients treated with VKA drugs, such as warfarin, the [employer] 2012 Guideline recommends a therapeutic INR range of 2 to 3 (target INR of 2.5). This recommendation includes high-risk patients with antiphospholipid syndrome with previous arterial or venous thromboembolism, current-generation mechanical or bioprosthetic aortic heart valve replacement. Note: Patients with mechanical aortic valve replacement and additional risk factors for thromboembolic events (atrial fibrillation, previous thromboembolism, LV dysfunction, hypercoagulable conditions) or an older generation mechanical AVR (i.e., ball in-Cage) or any mechanical MVR should have a INR therapeutic range of 2.5 to 3.5 (target INR of 3). Raymond GH, et al. Chest 2012, 141:7S-47S Alvino RA, et al. [facility] 2017, 70: 252-289 Performed By: #### 3 [id number] #### [facility] [facility] [id number] [address] [place] [address] [place] PT Coag (PPP) [Time] 15.8 s High <13.1 [facility] Comment on above: Order Comment: Speci men Type: BLOOD SPECIMEN [facility]ing Facility[facility] Address: [address] [place] [address] Performed By: #### 3 4528-0 #### [facility] [id number] [address] [place] [address] [place] CNPRadha 02-15-2024 [facility] ARTURO PEDERSEN ([id number]) 1940 M Date Time Provider Department 02/15/24 PADDY ZAIDI During your visit today, we recorded the following information about you: Corrina Blood 02/15/2024 3:31 PM Signed Hui, Caregiver, is calling Paddy Zaidi MD today with concern regarding Medication Problem. Patient Jose is $300 with the copay and he cannot afford this. They are asking for Warfarin or another medication. Patient has been identified by name and birthdate. Duration of symptoms: N/A Hui Call patient at: [phone] (home) [phone] (cell) Was an appointment scheduled: No Closing statement: Paddy Lucas MD 02/16/2024 9:59 AM Signed Will try warfarin. Start with 2.5 mg daily, check INR in 1 week. How will he get labs done? The following approved medication requests have been transmitted electronically. Requested Prescriptions Signed Prescriptions Disp Refills warfarin (COUMADIN) 2.5 mg tablet 30 tablet 0 Sig: Take 1 tablet by mouth daily as directed. Authorizing Provider: PADDY ZAIDI INR ordered for 1x per week, standing order for [place] lab. Once he's on a steady dose can cut this back to 1x per sergio . MD Marissa Sheehan Lisa, LPN 02/16/2024 10:22 AM Signed Patients son aware that medication was sent to [facility] in [place]. Son stated he understood that blood work needed drawn in 1 week in [place]. 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 - doxycycline monohydrate (MONODOX) 100 mg capsule Take 100 mg by mouth two times a day. - PARoxetine (PAXIL) 40 mg tablet Take 1 tablet by mouth once daily. - potassium chloride (K-TAB) 10 mEq tablet Take 2 tablets by mouth every morning. - levothyroxine (SYNTHROID) 50 mcg tablet Take 1 tablet by mouth once daily. - spironolactone (ALDACTONE) 25 mg tablet Take 1 tablet by mouth once daily. - atorvastatin (LIPITOR) 40 mg tablet Take 1 tablet by mouth once daily. - gabapentin (NEURONTIN) 100 mg capsule Take 2 capsules by mouth two times a day. For neuropathy - atenolol (TENORMIN) 50 mg tablet Take 0.5 tablets by mouth once daily. - furosemide (LASIX) 20 mg tablet Take 1 tablet by mouth once daily. - mirtazapine (REMERON) 30 mg tablet (Discontinued) Take 1 tablet by mouth daily at bedtime. - aspirin 81 mg chewable tablet Take 81 mg by mouth once daily. - nitroglycerin sublingual (NITROQUICK) 0.3 mg SL tablet Dissolve 1 tablet under the tongue every 5 minutes as needed. Problem List As Of Date 02/15/2024 Noted Resolved Atherosclerotic cardiovascular disease [I25.10] 12/17/2004 Essential hypertension [I10] 12/17/2004 Hyperlipidemia [E78.5] 12/17/2004 PAROX VENTRIC TACHYCARD [I47.29] 01/11/2005 Depression [F32.A] 12/27/2008 Dyspnea [R06.00] 09/04/2009 Acquired hypothyroidism [E03.9] 09/26/2012 Obstructive sleep apnea on CPAP [G47.33] 12/19/2014 Adjustment disorder with mixed anxiety and depr*02/01/2017 Pure hypercholesterolemia [E78.00] 06/12/2018 Idiopathic peripheral neuropathy [G60.9] 06/22/2021 Abnormal electrocardiogram [R94.31] 10/19/2017 Anxiety [F41.9] 12/23/2021 Atherosclerotic heart disease of [place] coronar*10/19/2017 Cerebrovascular accident (CVA) (HCC) [I63.9] 12/23/2021 [...] involving autologous ar*12/23/2021 S/P angioplasty with stent [ (more content not included)... Normal [facility] CNOVon 02-14-2024 CNOV Office Visit (FPWADS ) ARTURO PEDERSEN ([id number]) 1940 M Date Time Provider Department 02/14/24 2:00 PM HEVER MARTÍNEZ FPWADS During your visit today, we recorded the following information about you: Pulse Blood pressure 96/minute 132/78 Hever Martínez APRN.LABOR SPECIALIST 02/14/2024 4:39 PM Signed This note was created using NoteWriter. Subjective Arturo Mario is a 83 year old male. 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 Treated for RLL pneumonia at the ER, still taking antibiotic as prescribed. Caregiver reports that the Eliquis wasn't with his other medications, she's not sure how long he's not been taking it. Also doesn't think he's been taking the Lasix. He's having some mild lower leg edema at times, improved with compression stockings. Previously diagnosed with COPD, has never seen pulmonology. Patient usually on 2L of oxygen day and night, sometimes bumps it up to 3. 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 Uses walker for ambulation, sleeps in the chair. Only uses urinal if no one is there to help, otherwise will use the bathroom. Taking Paxil 20 mg daily for anxiety, sometimes takes an extra tablet later in the day if he needs it. The history is provided by the patient and a friend. Review of Systems Constitutional: Negative for fever. Respiratory: Positive for shortness of breath. Negative for cough and wheezing. Cardiovascular: Positive for chest pain. Psychiatric/Behavioral: The patient is nervous/anxious. PAST MEDICAL HISTORY Diagnosis Date CABG CVA [...] HIP FRACTURE(S) Left 11/2017 hip screw placed [facility] Aspirin, Oxycodone, and Percodan [Oxycodone-Aspirin] MEDICATIONS doxycycline monohydrate (MONODOX) 100 mg capsule Take 100 mg by mouth two times a day. potassium chloride (K-TAB) 10 mEq tablet Take 2 tablets by mouth every morning. levothyroxine (SYNTHROID) 50 mcg tablet Take 1 tablet by mouth once daily. spironolactone (ALDACTONE) 25 mg tablet Take 1 tablet by mouth once daily. atorvastatin (LIPITOR) 40 mg tablet Take 1 tablet by mouth once daily. gabapentin (NEURONTIN) 100 mg capsule Take 2 capsules by mouth two times a day. For neuropathy atenolol (TENORMIN) 50 mg tablet Take 0.5 tablets by mouth once daily. aspirin 81 mg chewable tablet Take 81 mg by mouth once daily. PARoxetine (PAXIL) 40 mg tablet Take 1 tablet by mouth once daily. ELIQUIS 5 mg tab(s) Take 1 tablet by mouth two times a day. (Patient not taking: Reported on 02/14/2024) furosemide (LASIX) 20 mg tablet Take 1 tablet by mouth once daily. (Patient not taking: Reported on 02/14/2024) [DISCONTINUED] mirtazapine (REMERON) 30 mg tablet Take 1 tablet by mouth daily at bedtime. nitroglycerin sublingual (NITROQUICK) 0.3 mg SL tablet Dissolve 1 tablet under the tongue every 5 minutes as needed. FAMILY HISTORY Problem Relation Age of Onset Heart Father Prostate Cancer Father Alzheimer's Disease Mother Social History Tobacco Use Smoking status: Former Current packs/day: 0.00 Average packs/day: 2.0 packs/day for 25.0 years (50.0 ttl pk-yrs) Types: Cigarettes Start date: 10/17/1967 Quit date: 10/16/1992 Years since quittin.3 Smokeless tobacco: Never Vaping Use Vaping status: Never Used Substance Use Topics Alcohol use: No Drug use: No Objective BP 132/78 Pulse 96 Physical Exam Vitals and nursing note reviewed. Constitutional: Appearance: He is well-developed. He is not ill-appearing. Interventions: Nasal cannula in place. Cardiovascular: Rate and Rhythm: Normal rate and regular rhythm. Heart sounds: Normal heart sounds. Pulmonary: Effort: Pulmonary effort is normal. Breath sounds: Decreased air movement present. Examination of the right-lower field reveals rales. Rales (inspiratory) present. No wheezing or rhonchi. Musculoskeletal: Right lower le+ Edema present. Left lower le+ Edema present. Skin: General: Skin is warm and dry. Neurological: Mental Status: He is alert and oriented to person, place, and time. Comments: In wheelchair today, did not witness ambulation Assessment and Plan 1. Pneumonia of right lower lobe due to infectious organism Complete antibiotic as ordered by ER provider. 2. Chronic obstructive pulmonary disease, unspecified COPD type ([facility]) Recommend to establish care with college dean, continue oxygen. - CONSULT TO PULMONARY MEDICINE 3. Adjustment disorder with mixed anxiety an (more content not included)... Normal [facility] Tessa 02-14-2024 [facility] ARTURO PEDERSEN ([id number]) 1940 M Date Time Provider Department 02/14/24 PADDY ZAIDI During your visit today, we recorded the following information about you: ByersVarsha thompson 02/14/2024 4:49 PM Signed Coty is calling regarding the Eliquis and stated he has not been taking the med regularly and they need a new script. Patient has been identified by name and date of : Yes Pharmacy phones for refill(s): Eliquis 5 mg. Date of last office visit in primary care: 02/14/2024 Date of next office visit in primary care: Visit date not found Please advise. Thank you. Varsha Byers. Paddy Zaidi MD 02/14/2024 5:19 PM Signed The following approved medication requests have been transmitted electronically. Requested Prescriptions Signed Prescriptions Disp Refills ELIQUIS 5 mg tab(s) 180 tablet 3 Sig: Take 1 tablet by mouth two times a day. Authorizing Provider: PADDY ZAIDI MD Hummel, Megan, APRN.LABOR SPECIALIST 02/15/2024 9:01 AM Signed New Rx sent Hever Martínez APRN.[facility] Allergies As of Date: 02/14/2024 Noted Allergy Reaction ASPIRIN 04/19/2018 16 - Unknown OXYCODONE 04/19/2018 14 - Other: See Comments MARY (OXYCODONE-ASPIRIN) 12/17/2004 1 - Mental Status Change Date Reviewed: 02/14/2024 Reviewed by: Talia Ann LPN - Fully Assessed Reason for Visit: Refill Request [94] Order(s):ELIQUIS 5 mg tab(s)Take 1 tablet by mouth two times a day.Disp: 180 tabletRfl: 3 Prescriptions as of 02/15/2024 - doxycycline monohydrate (MONODOX) 100 mg capsule Take 100 mg by mouth two times a day. - PARoxetine (PAXIL) 40 mg tablet Take 1 tablet by mouth once daily. - ELIQUIS 5 mg tab(s) Take 1 tablet by mouth two times a day. - potassium chloride (K-TAB) 10 mEq tablet Take 2 tablets by mouth every morning. - levothyroxine (SYNTHROID) 50 mcg tablet Take 1 tablet by mouth once daily. - spironolactone (ALDACTONE) 25 mg tablet Take 1 tablet by mouth once daily. - atorvastatin (LIPITOR) 40 mg tablet Take 1 tablet by mouth once daily. - gabapentin (NEURONTIN) 100 mg capsule Take 2 capsules by mouth two times a day. For neuropathy - atenolol (TENORMIN) 50 mg tablet Take 0.5 tablets by mouth once daily. - furosemide (LASIX) 20 mg tablet Take 1 tablet by mouth once daily. - mirtazapine (REMERON) 30 mg tablet (Discontinued) Take 1 tablet by mouth daily at bedtime. - aspirin 81 mg chewable tablet Take 81 mg by mouth once daily. - nitroglycerin sublingual (NITROQUICK) 0.3 mg SL tablet Dissolve 1 tablet under the tongue every 5 minutes as needed. Problem List As Of Date 02/14/2024 Noted Resolved Atherosclerotic cardiovascular disease [I25.10] 12/17/2004 Essential hypertension [I10] 12/17/2004 Hyperlipidemia [E78.5] 12/17/2004 PAROX VENTRIC TACHYCARD [I47.29] 01/11/2005 Depression [F32.A] 12/27/2008 Dyspnea [R06.00] 09/04/2009 Acquired hypothyroidism [E03.9] 09/26/2012 Obstructive sleep apnea on CPAP [G47.33] 12/19/2014 Adjustment disorder with mixed anxiety and depr*02/01/2017 Pure hypercholesterolemia [E78.00] 06/12/2018 Idiopathic peripheral neuropathy [G60.9] 06/22/2021 Abnormal electrocardiogram [R94.31] 10/19/2017 Anxiety [F41.9] 12/23/2021 Atherosclerotic heart disease of [place] coronar*10/19/2017 Cerebrovascular accident (CVA) (HCC) [I63.9] 12/23/2021 [...] ar*12/23/2021 S/P angioplasty with stent [Z95.820] 12/23/2021 Obesity, Class I, BMI 30-34.9 [E66.811] 02/14/2024 Prescriptions ordered this encounter Disp Refills Start End ELIQUIS 5 MG TABLET 180 * 3 02/14/2024 Route: ORAL Sig: Take 1 tablet by mouth two times a day. Medications Discontinued During This Encounter Prescriptions - ELIQUIS 5 mg tab(s) (Discontinued) Reported on 02/14/2024 Encounter Status:Closed by SHAYNE ZAIDI on 02/14/24 [facility] Telephone (POOJAWAPATY) ARTURO PEDERSEN ([id number]) 1940 M Date Time Provider Department 02/14/24 HEVER MARTÍNEZ During your visit today, we recorded the following information about you: Lacie Muñoz 02/14/2024 4:12 PM Signed 1st attempt to reach for scheduling, left voicemail. Adrian was seen at [facility] today, and Hever referred him to see Pulmonology. He was unable to stay for scheduling but he and his caregiver said they would like to do all the appointments at [place]. Although there are many available times to complete the respiratory tests required for new pulmonology appointments on the same day, there are not any openings where both the respiratory tests and the pulmonology provider appointment are available the same day soon. Lacie Guillory 02/17/2024 7:21 PM Signed Tried calling again, phone line busy. Daniella Lanza 02/20/2024 11:11 AM Signed Spoke with patients son and schedule [place]t [place] Allergies As of Date: 02/14/2024 Noted Allergy Reaction ASPIRIN 04/19/2018 16 - Unknown OXYCODONE 04/19/2018 14 - Other: See Comments PERCODAN (OXYCODONE-ASPIRIN) 12/17/2004 1 - Mental Status Change Date Reviewed: 02/14/2024 Reviewed by: Talia Ann LPN - Fully Assessed Reason for Visit: Appointment [186] Prescriptions as of 02/20/2024 - warfarin (COUMADIN) 2.5 mg tablet Take 1 tablet by mouth daily as directed. - doxycycline monohydrate (MONODOX) 100 mg capsule Take 100 mg by mouth two times a day. - PARoxetine (PAXIL) 40 mg tablet Take 1 tablet by mouth once daily. - potassium chloride (K-TAB) 10 mEq tablet Take 2 tablets by mouth every morning. - levothyroxine (SYNTHROID) 50 mcg tablet Take 1 tablet by mouth once daily. - spironolactone (ALDACTONE) 25 mg tablet Take 1 tablet by mouth once daily. - atorvastatin (LIPITOR) 40 mg tablet Take 1 tablet by mouth once daily. - gabapentin (NEURONTIN) 100 mg capsule Take 2 capsules by mouth two times a day. For neuropathy - atenolol (TENORMIN) 50 mg tablet Take 0.5 tablets by mouth once daily. - furosemide (LASIX) 20 mg tablet Take 1 tablet by mouth once daily. - mirtazapine (REMERON) 30 mg tablet (Discontinued) Take 1 tablet by mouth daily at bedtime. - aspirin 81 mg chewable tablet Take 81 mg by mouth once daily. - nitroglycerin sublingual (NITROQUICK) 0.3 mg SL tablet Dissolve 1 tablet under the tongue every 5 minutes as needed. Problem List As Of Date 02/14/2024 Noted Resolved Atherosclerotic cardiovascular disease [I25.10] 12/17/2004 Essential hypertension [I10] 12/17/2004 Hyperlipidemia [E78.5] 12/17/2004 PAROX VENTRIC TACHYCARD [I47.29] 01/11/2005 Depression [F32.A] 12/27/2008 Dyspnea [R06.00] 09/04/2009 Acquired hypothyroidism [E03.9] 09/26/2012 Obstructive sleep apnea on CPAP [G47.33] 12/19/2014 Adjustment disorder with mixed anxiety and depr*02/01/2017 Pure hypercholesterolemia [E78.00] 06/12/2018 Idiopathic peripheral neuropathy [G60.9] 06/22/2021 Abnormal electrocardiogram [R94.31] 10/19/2017 Anxiety [F41.9] 12/23/2021 Atherosclerotic heart disease of [place] coronar*10/19/2017 Cerebrovascular accident (CVA) (HCC) [I63.9] 12/23/2021 [...] ar*12/23/2021 S/P angioplasty with stent [Z95.820] 12/23/2021 Obesity, Class I, BMI 30-34.9 [E66.811] 02/14/2024 Encounter Status:Closed by LACIE MUÑOZ on 02/14/24 [facility] Tessa 02-13-2024 [facility] Telephone (FPWAPATY) ARTURO PEDERSEN ([id number]) 1940 M Date Time Provider Department 02/13/24 PADDY ZAIDI During your visit today, we recorded the following information about you: Ge Will LPN 02/13/2024 11:29 AM Signed Received visit summary for SOB from [facility]. Placed in provider's inbox for review. Route to MA scanning Allergies As of Date: 02/13/2024 Noted Allergy Reaction ASPIRIN 04/19/2018 16 - Unknown OXYCODONE 04/19/2018 14 - Other: See Comments PERCODAN (OXYCODONE-ASPIRIN) 12/17/2004 1 - Mental Status Change Date Reviewed: 06/07/2023 Reviewed by: Ge Will LPN - Fully Assessed Reason for Visit: Received Outside Medical Records [9084] Cmt: [facility] Prescriptions as of 02/13/2024 - PARoxetine (PAXIL) 20 mg tablet Take 1 tablet by mouth once daily. - potassium chloride (K-TAB) 10 mEq tablet Take 2 tablets by mouth every morning. - levothyroxine (SYNTHROID) 50 mcg tablet Take 1 tablet by mouth once daily. - spironolactone (ALDACTONE) 25 mg tablet Take 1 tablet by mouth once daily. - atorvastatin (LIPITOR) 40 mg tablet Take 1 tablet by mouth once daily. - gabapentin (NEURONTIN) 100 mg capsule Take 2 capsules by mouth two times a day. For neuropathy - atenolol (TENORMIN) 50 mg tablet Take 0.5 tablets by mouth once daily. - ELIQUIS 5 mg tab(s) Take 1 tablet by mouth two times a day. - furosemide (LASIX) 20 mg tablet Take 1 tablet by mouth once daily. - mirtazapine (REMERON) 30 mg tablet (Discontinued) Take 1 tablet by mouth daily at bedtime. - aspirin 81 mg chewable tablet Take 81 mg by mouth once daily. - nitroglycerin sublingual (NITROQUICK) 0.3 mg SL tablet Dissolve 1 tablet under the tongue every 5 minutes as needed. Problem List As Of Date 02/13/2024 Noted Resolved Atherosclerotic cardiovascular disease [I25.10] 12/17/2004 Essential hypertension [I10] 12/17/2004 Hyperlipidemia [E78.5] 12/17/2004 PAROX VENTRIC TACHYCARD [I47.29] 01/11/2005 Depression [F32.A] 12/27/2008 Dyspnea [R06.00] 09/04/2009 Acquired hypothyroidism [E03.9] 09/26/2012 Obstructive sleep apnea on CPAP [G47.33] 12/19/2014 Adjustment disorder with mixed anxiety and depr*02/01/2017 Pure hypercholesterolemia [E78.00] 06/12/2018 Idiopathic peripheral neuropathy [G60.9] 06/22/2021 Abnormal electrocardiogram [R94.31] 10/19/2017 Anxiety [F41.9] 12/23/2021 Atherosclerotic heart disease of [place]ahu[place] coronar*10/19/2017 Cerebrovascular accident (CVA) (HCC) [I63.9] 12/23/2021 [...] with stent [Z95.820] 12/23/2021 Encounter Status:Closed by GE WILL on 02/13/24 Normal [facility] Basic Metabolic Profile (BMP )on 02-07-2024 BUN/CRE 27.3 RATIO High 10-20 [facility] Comment on above: Performed By: #### L 100.0100, L500.2500 #### [facility] [address] [place], [address] CA,Total 9.5 mg/dL Normal 8.5-10.1 [facility] Comment on above: Performed By: #### L 100.0100, L500.2500 #### [facility] [address] [place], [address] Chloride [Moles/Vol] 102 mmol/L Normal 98-107 [facility] Comment on above: Performed By: #### L 100.0100, L500.2500 #### [facility] [address] [place], [address] CO2 [Moles/Vol] 32.0 mmol/L Normal 21.0-32.0 [facility] Comment on above: Performed By: #### L 100.0100, L500.2500 #### [facility] [address] [place], [address] Creatinine [Mass/Vol] 0.81 mg/dL Normal 0.70-1.30 [facility] Comment on above: Result Comment: The validity of the calculated GFR GFRAA in patients over 70 years has not been determined. Clinical correlation is essential. Performed By: #### L 100.0100, L500.2500 #### [facility] [address] [place], [address] EST GFR - AA 117 mL/min Normal >60 [facility] Comment on above: Result Comment: Afri can [place] GFR Calc Performed By: #### L 100.0100, L500.2500 #### [facility] [address] [place], [address] GAP 3 Low 5-15 [facility] Comment on above: Performed By: #### L 100.0100, L500.2500 #### [facility] [address] [place], [address] GFR/1.73 sq M.predicted among non-blacks MDRD (S/P/Bld) [Vol rate/Area] 97 mL/min/{1.73_m2} Normal >60 [facility] Comment on above: Result Comment: Non- GFR Calc Performed By: #### L 100.0100, L500.2500 #### [facility] [address] [place], [address] Glucose [Mass/Vol] 117 mg/dL High 74-106 [facility] Comment on above: Result Comment: Fast ing Glucose result from 100 to 125 mg/dL suggests IMPAIRED HOMEOSTASIS per A.D.A. criteria. Performed By: #### L 100.0100, L500.2500 #### [facility] [address] [place], [address] Potassium [Moles/Vol] 4.6 mmol/L Normal 3.5-5.1 [facility] Comment on above: Performed By: #### L 100.0100, L500.2500 #### [facility] [address] [place], [address] Sodium [Moles/Vol] 137 mmol/L Normal 136-145 [facility] Comment on above: Performed By: #### L 100.0100, L500.2500 #### [facility] [address] [place], [address] Urea nitrogen [Mass/Vol] 22 mg/dL High 7-18 [facility] Comment on above: Performed By: #### L 100.0100, L500.2500 #### [facility] [address] [place], [address] CBC W/Diff, Automatedon 12-3 -2023 Absolute Lymph 0.90 X10 3/uL Normal 0.83-4.51 [facility] Comment on above: Performed By: #### L 100.0100, L500.2500 #### [facility] [address] [place], [address] Absolute Neut 12.6 X10 3/uL High 2.0-7.7 [facility] Comment on above: Performed By: #### L 100.0100, L500.2500 #### [facility] [address] [place], [address] Basophils/100 WBC (Bld) 0.7 % Normal 0-1 [facility] Comment on above: Performed By: #### L 100.0100, L500.2500 #### [facility] [address] [place], [address] Eosinophils/100 WBC (Bld) 1.4 % Normal 0-5 [facility] Comment on above: Performed By: #### L 100.0100, L500.2500 #### [facility] [address] [place], [address] Erythrocyte distribution width (RBC) [Ratio] 13.2 % Normal 11.6-14.6 [facility] Comment on above: Performed By: #### L 100.0100, L500.2500 #### [facility] [address] [place], [address] Hematocrit (Bld) [Volume fraction] 46.2 % Normal 40-54 [facility] Comment on above: Performed By: #### L 100.0100, L500.2500 #### [facility] [address] [place], [address] Hemoglobin (Bld) [Mass/Vol] 14.5 g/dL Normal 13.0-16.5 [facility] Comment on above: Performed By: #### L 100.0100, L500.2500 #### [facility] [address] [place], [address] IG% 1.200 High 0.0-0.9 [facility] Comment on above: Result Comment: IG% - Immature Granulocytes (promyelocytes, myelocytes and metamyelocytes) > 1% indicates that a LEFT SHIFT is Present. Performed By: #### L 100.0100, L500.2500 #### [facility] [address] [place], [address] Lymphocytes/100 WBC (Bld) 6.1 % Low 19-41 [facility] Comment on above: Performed By: #### L 100.0100, L500.2500 #### [facility] [address] [place], [address] MCH (RBC) [Entitic mass] 31.1 pg Normal 27.0-32.0 [facility] Comment on above: Performed By: #### L 100.0100, L500.2500 #### [facility] [address] [place], [address] MCHC (RBC) [Mass/Vol] 31.4 g/dL Low 32-36 [facility] Comment on above: Performed By: #### L 100.0100, L500.2500 #### [facility] [address] [place], [address] MCV (RBC) [Entitic vol] 99.1 fL High 80-94 [facility] Comment on above: Performed By: #### L 100.0100, L500.2500 #### [facility] [address] [place], [address] Monocytes/100 WBC (Bld) 5.0 % Normal 0-10 [facility] Comment on above: Performed By: #### L 100.0100, L500.2500 #### [facility] [address] [place], [address] Neutrophils/100 WBC (Bld) 85.6 % High 47-70 [facility] Comment on above: Performed By: #### L 100.0100, L500.2500 #### [facility] [address] [place], [address] Nucleated RBC (Bld) [#/Vol] 0 10*3/uL Normal 0-5 [facility] Comment on above: Performed By: #### L 100.0100, L500.2500 #### [facility] [address] [place], [address] Platelet mean volume (Bld) [Entitic vol] 8.7 fL Normal 6.2-12.0 [facility] Comment on above: Performed By: #### L 100.0100, L500.2500 #### [facility] [address] [place], [address] Platelets (Bld) [#/Vol] 243 10*3/uL Normal 150-450 [facility] Comment on above: Performed By: #### L 100.0100, L500.2500 #### [facility] [address] [place], [address] RBC (Bld) [#/Vol] 4.66 10*6/uL Normal 4.6-6.2 [facility] Comment on above: Performed By: #### L 100.0100, L500.2500 #### [facility] [address] [place], [address] RDW SD 47.5 fl High 35.1-43.9 [facility] Comment on above: Performed By: #### L 100.0100, L500.2500 #### [facility] [address] [place], [address] WBC (Bld) [#/Vol] 14.7 10*3/uL High 4.4-11.0 [facility] Comment on above: Performed By: #### L 100.0100, L500.2500 #### [facility] [address] [place], [address] CTA Chest W/WO Contraston CTA Chest W/WO Contrast [facility] Imaging Services [address] [address] CTA Chest W/WO Contrast MR#: [id number] Acct: [id number] Name: ARTURO PEDERSEN Rep #: [id number] : 1940 M 83 From: Shayne Holt MD PCP: Dr. Shayne Zaidi MD Status: [facility] ER Study: CTA Chest W/WO Contrast Date of Exam: 02/07/24 Exam# [id number] Ordering Dr: [place] [id number] STUDY: CTA CHEST REASON FOR EXAM: Male, 83 years old. sob RADIATION DOSAGE (If Supplied By Facility): CTDIvol = ( 12.43 ) mGy, DLP = ( 496.67 ) mGycm TECHNIQUE: The examination was performed with the intravenous administration of IV 100mL Isovue-370. Post-processing of the angiographic images was performed, with multiplanar reformation and 3D reconstruction. Individualized dose optimization techniques were used for this CT. COMPARISON: December 15, 2021 FINDINGS: Normal enhancement of the main pulmonary artery and right and left pulmonary arteries. Normal enhancement of the bilateral peripheral pulmonary arteries. There is no demonstrated pulmonary embolism. Mild atherosclerotic changes of the aorta without evidence for aneurysm There is no demonstrated aortic dissection. Heart size is normal. There is multifocal coronary artery calcification. Mildly enlarged hilar and mediastinal nodes largest measuring approximately 1.5 to 2 cm size range . Normal visualized trachea and bronchi. The lungs are well expanded. There is mild atelectasis or infiltrate in left lower lobe There is loss of volume in right hemithorax with elevation of the right hemidiaphragm and subsegmental atelectasis in the right lower lobe Normal pleura. Postop change status post median sternotomy and CABG. Normal osseous structures. Multiple calcified gallstones without evidence for acute cholecystitis. CT/CTA Chest W/WO Contrast IMPRESSION: Mild basilar atelectasis or infiltrate and subsegmental atelectasis in the right lower lobe in association with elevated right hemidiaphragm. No evidence for pulmonary embolus Electronically Signed: Shayne Holt MD at 17:49 EST Reading Location ID and State: [address] [place] [address] Tel , Service support , CC: Dr. Alpa Jeffries DO; Dr. Shayne Zaidi MD Ccu Nurse: Signed Normal [facility] Chest 1 View (Portable)on Chest 1 View (Portable) [facility] Imaging Services [address] [place] [id number] Chest 1 View (Portable) MR#: [id number] Acct: [id number] Name: ARTURO PEDERSEN Rep #: [id number] : 1940 M 83 From: Uriel Moody PCP: Dr. Shayne Zaidi MD Status: PRE ER Study: Chest 1 View (Portable) Date of Exam: 02/07/24 Exam# [id number] Ordering Dr: Yevgeniy Reis [id number] INDICATION: COUGH EXAMINATION/TECHNIQUE: X-RAY - XR Chest 1 View COMPARISON: Prior study dated: 03/15/2023 FINDINGS: LINES/DEVICES: None. LUNGS: Persistent elevation of the right hemidiaphragm. Atelectatic changes or scarring in the right lung base. Persistent blunting of the right costophrenic angle unchanged. MEDIASTINUM AND CARDIOVASCULAR STRUCTURES: Normal cardiac silhouette. Status post median sternotomy and CABG. BONES AND SOFT TISSUES: Unremarkable. RAD/Chest 1 View (Portable) IMPRESSION: No significant change. No new infiltrate is seen. Electronically Signed: Uriel Roque MD at 15:38 EST , CC: Dr. Shayne Zaidi MD; ED PHYSICIAN PROVIDER Ccu Nurse: Signed Normal [facility] Emergency Department Summary on 02-07-2024 Emergency Department Summary [facility] Medical Records Department [address] [place] [address] Emergency Department Summary 02/07/24 MR#: [id number] Acct: [id number] Name: ARTURO PEDERSEN Rep #: [id number] : 1940 83 From: Alpa Jeffries DO PCP: Dr. Shayne Zaidi MD Status:DEP ER Location: ED HPI History of Present Illness Chief Complaint: Shortness of Breath Informant: patient and family Narrative Narrative: Patient is an 83-year-old male with history of chronic hypoxic respiratory failure on 2 L of oxygen at baseline, coronary artery disease, atrial fibrillation, COPD, central sleep apnea, hypertension and atrial fibrillation presenting from home for worsening cough. Companions at the bedside as well as failure. Apparently patient's had worsening cough and her story symptoms for the past 3 weeks. Said decreased energy level and decreased appetite. His cough is been yellow with dark sputum production. When this for started he did have an episode of sputum that was blood-streaked. Last night he send like he was gurgling. Patient denies using chest pain. Does not take any breathing treatments at home. Denies any vomiting does report some nausea. Has some chronic constipation with no acute change in this. Denies abdominal pain. Denies any urinary symptoms however the pain he notes that he only drinks Pepsi and often times his urine is quite dark or bright yellow. No report of any fevers. No sick contacts reported. No other complaints or concerns at this time. [facility] Medical History Atherosclerosis of coronary artery of [place]ahu[place] heart without angina pectoris Prostate CA Stroke FREEDMAN (dyspnea on exertion) Central sleep apnea Stage 2 moderate COPD by GOLD classification HTN (hypertension) Hoarseness left vocal cord paralysis Home Medications ???Medication ???Instructions ???Recorded ???Last Taken ???Type levothyroxine 50 mcg tablet 50 mcg PO DAILY thyroid 07/25/19 12/14/21 History amlodipine 5 mg tablet 5 mg PO DAILY bp 07/28/19 Unknown History atorvastatin 40 mg tablet 40 mg PO QHS cholesterol 07/28/19 12/14/21 History spironolactone 25 mg tablet 25 mg PO DAILY diuretic 07/28/19 12/14/21 History aspirin 81 mg chewable tablet 81 mg PO DAILY@0800 health 12/14/21 12/14/21 History atenolol 50 mg tablet 50 mg PO DAILY bp 12/14/21 12/14/21 History clopidogrel 75 mg tablet 75 mg PO DAILY blood thinner 12/14/21 Unknown History escitalopram oxalate 20 mg tablet 20 mg PO DAILY depression 12/14/21 12/14/21 History gabapentin 100 mg capsule 200 mg PO QHS foot pain 12/14/21 12/14/21 History potassium chloride 10 mEq 20 meq PO DAILY supplement 12/14/21 12/14/21 History tablet,extended release acetaminophen 500 mg tablet 1,000 mg PO Q6H PRN Pain Score 12/28/21 Unknown History -11/16 docusate sodium 100 mg capsule 100 mg PO DAILY #20 CAPSULES 09/22/22 Unknown Rx (DOK) tramadol 50 mg tablet 50 mg PO Q4H PRN PRN Pain 3 days 09/22/22 Unknown Rx #20 tabs albuterol sulfate 90 mcg/actuation 2 puff inhalation Q4H PRN PRN 03/15/23 Unknown Rx aerosol inhaler (Ventolin HFA) Wheezing ##1 doxycycline monohydrate 100 mg 100 mg PO BID #10 CAPSULES 03/15/23 Unknown Rx capsule ipratropium bromide 17 2 puff inhalation Q8H #12.9 grams 03/15/23 Unknown Rx mcg/actuation HFA aerosol inhaler (Atrovent HFA) prednisone 20 mg tablet 60 mg (3 x 20 mg) PO DAILY #15 03/15/23 Unknown Rx TABLETS doxycycline monohydrate 100 mg 100 mg PO BID #14 CAPSULES 02/07/24 Unknown Rx capsule prednisone 20 mg tablet 40 mg (2 x 20 mg) PO DAILY #8 tabs 02/07/24 Unknown Rx Allergy/AdvReac Type Severity Reaction Status Date / Time oxycodone (From Percodan) Allergy Other Verified 02/07/24 14:36 Surgical History History of coronary artery stent placement (12/16/21) Cataract extraction status History of hip replacement History of open heart surgery Social History Smoking Status: Former smoker quit date: 02/08/92 pack-years: 37 Tobacco: How many years used: 20 alcohol intake: never substance use type: does not use ROS ROS ED Constitutional Constitutional ED: Reports other Details: Decreased activity, decreased appetite ; Denies chills or fever(s) Eyes Eyes: Denies change in vision ENT ENT ED: Denies rhinorrhea or sore throat Cardiovascular Cardiovascular: Denies chest pain Respiratory/Chest Respiratory/Chest: Reports cough, dyspnea and sputum Gastrointestinal Gastrointestinal: Reports constipation and nausea; Denies abdominal pain, diarrhea or vomiting Genitourinary Genitourinary ED: Denies dysuria or urinary frequency Musculoskeletal Musculoskeletal: Denies arthralgias or myalgias Integumen (more content not included)... [facility] M100.678on 02-07-2024 M100.678 Pending SARS-CoV-2 (COVID 19) Negative INFLUENZA A Negative INFLUENZA B Negative RSV PCR Negative Normal [facility] Comment on above: Performed By: #### M 100.678 ####[facility] [address] [place], [address] Urinalysis, Completeon 02-06 BACTERIA RARE Normal None Seen [facility] Comment on above: Order Comment: COLLE CTOR TO SPECIFY Performed By: #### L 400.0001 #### [facility] [address] [place], [address] EPI,SQUAMOUS 0-5 SEEN Normal 0-5 [facility] Comment on above: Order Comment: ALFONSO CTOR TO SPECIFY Performed By: #### L 400.0001 #### [facility] [address] [place], [address] Mucus Ql (Urine sed) RARE Normal [facility] Comment on above: Order Comment: COLLE CTOR TO SPECIFY Performed By: #### L 400.0001 #### [facility] [address] [place], [address] WBC 5-10 SEEN Normal 0-5 [facility] Comment on above: Order Comment: COLLE CTOR TO SPECIFY Performed By: #### L 400.0001 #### [facility] [address] [place], [address] RBC 0 SEEN Normal 0-5 [facility] Comment on above: Order Comment: COLLE CTOR TO SPECIFY Performed By: #### L 400.0001 #### [facility] [address] [place], [address] [facility]O ([id number]) 1940 M Date Time Provider Department 12/21/23 PADDY ZAIDI During your visit today, we recorded the following information about you: Ge Will LPN 12/21/2023 3:29 PM Signed Received annual oxygen rx from [employer]. Placed in provider's inbox for review. Route to [place] fax Allergies As of Date: 12/21/2023 Noted Allergy Reaction ASPIRIN 04/19/2018 16 - Unknown OXYCODONE 04/19/2018 14 - Other: See Comments PERCODAN (OXYCODONE-ASPIRIN) 12/17/2004 1 - Mental Status Change Date Reviewed: 06/07/2023 Reviewed by: Ge Will LPN - Fully Assessed Reason for Visit: Orders [681] Cmt: [facility] annual oxygen rx Prescriptions as of 12/21/2023 - PARoxetine (PAXIL) 20 mg tablet Take 1 tablet by mouth once daily. - potassium chloride (K-TAB) 10 mEq tablet Take 2 tablets by mouth every morning. - levothyroxine (SYNTHROID) 50 mcg tablet Take 1 tablet by mouth once daily. - spironolactone (ALDACTONE) 25 mg tablet Take 1 tablet by mouth once daily. - atorvastatin (LIPITOR) 40 mg tablet Take 1 tablet by mouth once daily. - gabapentin (NEURONTIN) 100 mg capsule Take 2 capsules by mouth two times a day. For neuropathy - atenolol (TENORMIN) 50 mg tablet Take 0.5 tablets by mouth once daily. - ELIQUIS 5 mg tab(s) Take 1 tablet by mouth two times a day. - furosemide (LASIX) 20 mg tablet Take 1 tablet by mouth once daily. - mirtazapine (REMERON) 30 mg tablet (Discontinued) Take 1 tablet by mouth daily at bedtime. - aspirin 81 mg chewable tablet Take 81 mg by mouth once daily. - nitroglycerin sublingual (NITROQUICK) 0.3 mg SL tablet Dissolve 1 tablet under the tongue every 5 minutes as needed. Problem List As Of Date 12/21/2023 Noted Resolved Atherosclerotic cardiovascular disease [I25.10] 12/17/2004 Essential hypertension [I10] 12/17/2004 Hyperlipidemia [E78.5] 12/17/2004 PAROX VENTRIC TACHYCARD [I47.29] 01/11/2005 Depression [F32.A] 12/27/2008 Dyspnea [R06.00] 09/04/2009 Acquired hypothyroidism [E03.9] 09/26/2012 Obstructive sleep apnea on CPAP [G47.33] 12/19/2014 Adjustment disorder with mixed anxiety and depr*02/01/2017 Pure hypercholesterolemia [E78.00] 06/12/2018 Idiopathic peripheral neuropathy [G60.9] 06/22/2021 Abnormal electrocardiogram [R94.31] 10/19/2017 Anxiety [F41.9] 12/23/2021 Atherosclerotic heart disease of cahuilla coronar*10/19/2017 Cerebrovascular accident (CVA) (HCC) [I63.9] 12/23/2021 [...] with stent [Z95.820] 12/23/2021 Encounter Status:Closed by GE WILL on 12/21/23 Normal [facility] Absolute lymphocyte countOrd ered By: Parker Meztger on 03-15-2023 Lymphocytes Auto (Unsp spec) [#/Vol] 0.80 10*3/uL 0.83-4.51 [facility] Automated blood erythrocyte count (number/volume)Ordered By: Parker Metzger on 03-15-2023 RBC (Bld) [#/Vol] 4.29 10*6/uL Low 4.6-6.2 [facility] Comment on above: Performed By: #### L 100.0100, L500.4050, L503.6005 #### [facility] [address] [place], [address] Automated blood hematocrit ( percentage)Ordered By: Parker Metzger on 03-15-2023 Hematocrit (Bld) [Volume fraction] 42.9 % Normal 40-54 [facility] Comment on above: Performed By: #### L 100.0100, L500.4050, L503.6005 #### [facility] [address] [place], [address] Automated lymphocyte count a s percentage of total leukocytesOrdered By: Parker Metzger on 03-15-2023 Lymphocytes/100 WBC Auto (Unsp spec) 8.8 % 19-41 [facility] Basophil percentageOrdered B y: Parker Metzger on 03-15-2023 Lactate [Moles/Vol] 1.7 mmol/L Normal 0.4-1.9 [facility] Comment on above: Order Comment: Y Performed By: #### L 100.0100, L500.4050, L503.6005 #### [facility] [address] [place], [address] Bilirubin [Mass/Vol] 0.60 mg/dL Normal 0.20-1.00 [facility] Comment on above: For patients on eltr ombopag therapy, use of Dimension [place] TBIL is not recommended. Result Comment: For patients on eltrombopag therapy, use of Dimension [place] TBIL is not recommended. Performed By: #### L 100.0100, L500.4050, L503.6005 #### [facility] [address] [place], [address] Chloride [Moles/Vol] 107 mmol/L Normal 98-107 [facility] Comment on above: Performed By: #### L 100.0100, L500.4050, L503.6005 #### [facility] [address] [place], [address] Glucose [Mass/Vol] 110 mg/dL High 74-106 [facility] Comment on above: Fasting Glucose resu lt from 100 to 125 mg/dL suggests IMPAIRED HOMEOSTASIS per A.D.A. criteria. Result Comment: Fast ing Glucose result from 100 to 125 mg/dL suggests IMPAIRED HOMEOSTASIS per A.D.A. criteria. Performed By: #### L 100.0100, L500.4050, L503.6005 #### [facility] [address] [place], [address] Potassium [Moles/Vol] 4.0 mmol/L Normal 3.5-5.1 [facility] Comment on above: Performed By: #### L 100.0100, L500.4050, L503.6005 #### [facility] [address] [place], [address] Sodium [Moles/Vol] 137 mmol/L Normal 136-145 [facility] Comment on above: Performed By: #### L 100.0100, L500.4050, L503.6005 #### [facility] [address] [place], [address] Basophils/100 WBC (Bld) 0.7 % Normal 0-1 [facility] Comment on above: Performed By: #### L 100.0100, L500.4050, L503.6005 #### [facility] [address] [place], [address] Eosinophils/100 WBC (Bld) 2.1 % Normal 0-5 [facility] Comment on above: Performed By: #### L 100.0100, L500.4050, L503.6005 #### [facility] [address] [place], [address] Hemoglobin (Bld) [Mass/Vol] 13.1 g/dL Normal 13.0-16.5 [facility] Comment on above: Performed By: #### L 100.0100, L500.4050, L503.6005 #### [facility] [address] [place], [address] Monocytes/100 WBC (Bld) 6.8 % Normal 0-10 [facility] Comment on above: Performed By: #### L 100.0100, L500.4050, L503.6005 #### [facility] [address] [place], [address] Neutrophils/100 WBC (Bld) 80.9 % High 47-70 [facility] Comment on above: Performed By: #### L 100.0100, L500.4050, L503.6005 #### [facility] [address] [place], [address] WBC (Bld) [#/Vol] 9.1 10*3/uL Normal 4.4-11.0 [facility] Comment on above: Performed By: #### L 100.0100, L500.4050, L503.6005 #### [facility] [address] [place], [address] Neutrophils (Bld) [#/Vol] 7.4 10*3/uL 2.0-7.7 [facility] Protein [Mass/Vol] 7.0 g/dL 6.4-8.2 [facility] CBC W/Diff, Automatedon 02-0 Absolute Lymph 0.80 X10 3/uL Low 0.83-4.51 [facility] Comment on above: Performed By: #### L 100.0100, L500.4050, L503.6005 #### [facility] [address] [place], [address] Absolute Neut 7.4 X10 3/uL Normal 2.0-7.7 [facility] Comment on above: Performed By: #### L 100.0100, L500.4050, L503.6005 #### [facility] [address] [place], [address] IG% 0.700 Normal 0.0-0.9 [facility] Comment on above: Result Comment: IG% - Immature Granulocytes (promyelocytes, myelocytes and metamyelocytes) > 1% indicates that a LEFT SHIFT is Present. Performed By: #### L 100.0100, L500.4050, L503.6005 #### [facility] [address] [place], [address] Lymphocytes/100 WBC (Bld) 8.8 % Low 19-41 [facility] Comment on above: Performed By: #### L 100.0100, L500.4050, L503.6005 #### [facility] [address] [place], [address] Nucleated RBC (Bld) [#/Vol] 0 10*3/uL Normal 0-5 [facility] Comment on above: Performed By: #### L 100.0100, L500.4050, L503.6005 #### [facility] [address] [place], [address] RDW SD 48.4 fl High 35.1-43.9 [facility] Comment on above: Performed By: #### L 100.0100, L500.4050, L503.6005 #### [facility] [address] [place], [address] CBC W/Diff, AutomatedOrdered By: Parker Metzger on 03-15-2023 MCH (RBC) [Entitic mass] 30.5 pg Normal 27.0-32.0 [facility] Comment on above: Performed By: #### L 100.0100, L500.4050, L503.6005 #### [facility] [address] [place], [address] MCHC (RBC) [Mass/Vol] 30.5 g/dL Low 32-36 [facility] Comment on above: Performed By: #### L 100.0100, L500.4050, L503.6005 #### [facility] [address] [place], [address] Platelet mean volume (Bld) [Entitic vol] 9.9 fL Normal 6.2-12.0 [facility] Comment on above: Performed By: #### L 100.0100, L500.4050, L503.6005 #### [facility] [address] [place], [address] Platelets (Bld) [#/Vol] 135 10*3/uL Low 150-450 [facility] Comment on above: Performed By: #### L 100.0100, L500.4050, L503.6005 #### [facility] [address] [place], [address] Chest PA and Lateralon 03-15 Chest PA and Lateral [facility] Services [address] [address] Chest PA and Lateral MR#: [id number] Acct: [id number] Name: ARTURO PEDERSEN Rep #: [id number] : 1940 M 82 From: Domingo caballero MD PCP: Dr. Shayne Zaidi MD Status: REG ER Study: Chest PA and Lateral Date of Exam: 03/15/23 Exam# [id number] Ordering Dr: [place] [id number] STUDY: X-RAY CHEST REASON FOR EXAM: Male, 82 years old. Cough, dyspnea, wheezing TECHNIQUE: Single AP portable view of the chest. COMPARISON: Comparison is made with prior study dated December 18, 2021. FINDINGS: EKG electrodes are seen. Stable elevation of the right hemidiaphragm with blunting of the right cost phrenic angle. Increased markings at the right lung base suggestive of atelectasis. Cardiomegaly prior CABG. Normal mediastinum and lucio. Normal visualized pulmonary arteries. There is atherosclerotic calcification of the aortic arch with tortuosity. There are diffuse degenerative changes of the visualized thoracic spine. Mild nature calcification in the proximal right humerus suggestive of either healed bone infarct or cartilaginous calcification. There is no demonstrated abnormality of the visualized soft tissue structures of the upper abdomen. RAD/Chest PA and Lateral IMPRESSION: Stable elevation of the right hemidiaphragm with blunting of the right costophrenic angle and increased markings at the right lung base suggestive of atelectasis. Electronically Signed: Domingo Little MD at 14:57 EST Reading Location ID and State: [address] [place] [address] , Service support , CC: Dr. Shayne Zaidi MD; Dr. Parker Metzger MD Ccu Nurse: Signed Normal [facility] Comprehensive Metabolic Prof ilon 03-15-2023 Albumin [Mass/Vol] 3.5 g/dL Normal 3.2-5.0 [facility] Comment on above: Performed By: #### L 100.0100, L500.4050, L503.6005 #### [facility] [address] [place], [address] ALK P 116 U/L Normal 45-117 [facility] Comment on above: Performed By: #### L 100.0100, L500.4050, L503.6005 #### [facility] [address] [place], [address] AST [Catalytic activity/Vol] 11 U/L Low 15-37 [facility] Comment on above: Performed By: #### L 100.0100, L500.4050, L503.6005 #### [facility] [address] [place], [address] BUN/CRE 28.5 RATIO High 10-20 [facility] Comment on above: Performed By: #### L 100.0100, L500.4050, L503.6005 #### [facility] [address] [place], [address] CA,Total 8.6 mg/dL Normal 8.5-10.1 [facility] Comment on above: Performed By: #### L 100.0100, L500.4050, L503.6005 #### [facility] [address] [place], [address] ECRCL 83.26 ml/min Normal [facility] Comment on above: Performed By: #### L 100.0100, L500.4050, L503.6005 #### [facility] [address] [place], [address] EST GFR - AA 131 mL/min Normal >60 [facility] Comment on above: Result Comment: Afri can [place] GFR Calc Performed By: #### L 100.0100, L500.4050, L503.6005 #### [facility] [address] [place], [address] GAP 2 Low 5-15 [facility] Comment on above: Performed By: #### L 100.0100, L500.4050, L503.6005 #### [facility] [address] [place], [address] GFR/1.73 sq M.predicted among non-blacks MDRD (S/P/Bld) [Vol rate/Area] 108 mL/min/{1.73_m2} Normal >60 [facility] Comment on above: Result Comment: Non- GFR Calc Performed By: #### L 100.0100, L500.4050, L503.6005 #### [facility] [address] [place], [address] T PROT 7.0 g/dL Normal 6.4-8.2 [facility] Comment on above: Performed By: #### L 100.0100, L500.4050, L503.6005 #### [facility] [address] [place], [address] Comprehensive Metabolic Prof ilOrdered By: Parker Metzger on 03-15-2023 Albumin/Globulin [Mass ratio] 1.0 {ratio} Normal 0.9-2.4 [facility] Comment on above: Performed By: #### L 100.0100, L500.4050, L503.6005 #### [facility] [address] [place], [address] ALT [Catalytic activity/Vol] 20 U/L Normal 16-61 [facility] Comment on above: Performed By: #### L 100.0100, L500.4050, L503.6005 #### [facility] [address] [place], [address] CO2 [Moles/Vol] 28.0 mmol/L Normal 21.0-32.0 [facility] Comment on above: Performed By: #### L 100.0100, L500.4050, L503.6005 #### [facility] [address] [place], [address] Globulin (S) [Mass/Vol] 3.5 g/dL Normal 2.2-4.2 [facility] Comment on above: Performed By: #### L 100.0100, L500.4050, L503.6005 #### [facility] [address] [place], [address] Determination of erythrocyte mean corpuscular volume (MCV)Ordered By: Parker Metzger on 03-15-2023 MCV (RBC) [Entitic vol] 100.0 fL High 80-94 [facility] Comment on above: Performed By: #### L 100.0100, L500.4050, L503.6005 #### [facility] [address] [place], [address] Emergency Department Summary on 03-15-2023 Emergency Department Summary [facility] Medical Records Department [address] [place] [address] Emergency Department Summary 03/15/23 MR#: [id number] Acct: [id number] Name: ARTURO PEDERSEN Rep #: [id number] : 1940 82 From: Parker Metzger MD PCP: Dr. Shayne Zaidi MD Status:REG ER Location: ED HPI History of Present Illness Chief Complaint: Shortness of Breath Detail of Chief Complaint: Shortness of breath, cough, wheezing worse since last night. Also diarrhea Informant: patient and family Onset/Context/Timing Onset: Yesterday Context: gradual and exertion Timing: Continuous and Waxes and wanes Quality: Positive for Dyspnea on exertion and Wheezing; Negative for Orthopnea or PND Current Severity: Mild Maximum Severity: Severe Worsened by: Exertion and Coughing; Not Worsened By Lying flat Relieved by: Nothing Associated Symptoms cough, rhinorrhea, sore throat, subjective, chills and clear sputum; Negative for post nasal drip, ear pain, fever or sweats Chest Pain: Positive for None Narrative Narrative: Patient is an 82-year-old male with 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 He is able to walk across the room before becoming short of breath. Prior to his illness he was able to walk twice as far. He is not on oxygen at home. He denies any ill contacts. He does complain of subjective fever with chills. He does endorse rhinorrhea, congestion and sore throat. His cough is productive of clear sputum. He denies hemoptysis. He denies history of PE or DVT. He has chronic swelling of his right leg due to prior fracture. He does report nausea without vomiting. He is also had diarrhea since last evening. He denies headache, visual, ocular auditory symptoms. He denies chest pain, orthopnea or PND. He denies blood or mucus in his diarrhea. He denies black stool or maroon-colored stool. PE Risk Factors: Positive for Cancer; Negative for OCP + Smoking + > 35, Prior DVT or PE, Recent immobilization, Recent surgery or Recent travel Prior similar symptoms: Yes (COPD exacerbation) Recent Illness/Hospitalization : No PFSH [facility] Medical History Atherosclerosis of coronary artery of cahuilla heart without angina pectoris Central sleep apnea FREEDMAN (dyspnea on exertion) Hoarseness HTN (hypertension) left vocal cord paralysis Prostate CA Stage 2 moderate COPD by GOLD classification Stroke Home Medications levothyroxine 50 mcg tablet 50 mcg PO DAILY thyroid 07/25/19 [History Last Taken 12/14/21] amlodipine 5 mg tablet 5 mg PO DAILY bp 07/28/19 [History Last Taken Unknown] atorvastatin 40 mg tablet 40 mg PO QHS cholesterol 07/28/19 [History Last Taken 12/14/21] spironolactone 25 mg tablet 25 mg PO DAILY diuretic 07/28/19 [History Last Taken 12/14/21] aspirin 81 mg chewable tablet 81 mg PO DAILY@0800 health 12/14/21 [History Last Taken 12/14/21] atenolol 50 mg tablet 50 mg PO DAILY bp 12/14/21 [History Last Taken 12/14/21] clopidogrel 75 mg tablet 75 mg PO DAILY blood thinner 12/14/21 [History Last Taken Unknown] escitalopram oxalate 20 mg tablet 20 mg PO DAILY depression 12/14/21 [History Last Taken 12/14/21] gabapentin 100 mg capsule 200 mg PO QHS foot pain 12/14/21 [History Last Taken 12/14/21] potassium chloride 10 mEq tablet,extended release 20 meq PO DAILY supplement 12/14/21 [History Last Taken 12/14/21] acetaminophen 500 mg tablet 1,000 mg PO Q6H PRN Pain Score 1-11/1612/28/21 [History Last Taken Unknown] docusate sodium 100 mg capsule (DOK) 100 mg PO DAILY #20 CAPSULES 09/22/22 [Rx Last Taken Unknown] tramadol 50 mg tablet 50 mg PO Q4H PRN PRN Pain 3 days #20 tabs 09/22/22 [Rx Last Taken Unknown] albuterol sulfate 90 mcg/actuation aerosol inhaler (Ventolin HFA) 2 puff inhalation Q4H PRN PRN Wheezing ##1 03/15/23 [Rx Last Taken Unknown] doxycycline monohydrate 100 mg capsule 100 mg PO BID #10 CAPSULES 03/15/23 [Rx Last Taken Unknown] ipratropium bromide 17 mcg/actuation HFA aerosol inhaler (Atrovent HFA) 2 puff inhalation Q8H #12.9 grams 03/15/23 [Rx Last Taken Unknown] prednisone 20 mg tablet 60 mg (3 x 20 mg) PO DAILY #15 TABLETS 03/15/23 [Rx Last Taken Unknown] Allergy/AdvReac Type Severity Reaction Status Date / Time oxycodone [From Percodan] Allergy Other Verified 03/15/23 13:19 Surgical History Cataract extraction status History of coronary artery stent placement (12/16/21) History of hip replacement History of open heart surgery Social History Smoking Status: Former smoker quit date: 02/08/92 pack-years: 37 Tobacco: How many years used: 20 alcohol intake: never substance use t (more content not included)... Normal [facility] Erythrocyte distribution wid th ratioOrdered By: Parker Metzger on 03-15-2023 Erythrocyte distribution width (RBC) [Ratio] 13.2 % Normal 11.6-14.6 [facility] Comment on above: Performed By: #### L 100.0100, L500.4050, L503.6005 #### [facility] [address] [place], [place], [id number] Erythrocyte distribution wid th standard deviationOrdered By: Parker Metzger on 03-15-2023 Erythrocyte distribution width (RBC) [Entitic vol] 48.4 fL 35.1-43.9 [facility] Immature granulocytes/100 WB C Auto (Bld)Ordered By: Parker Metzger on 03-15-2023 Immature granulocytes/100 WBC (Bld) 0.700 % 0.0-0.9 [facility] Comment on above: IG% - Immature Granu locytes (promyelocytes, myelocytes and metamyelocytes) > 1% indicates that a LEFT SHIFT is Present. Laboratory - Chemistry and C hemistry - challengeOrdered By: Parkeramira Metzger on 03-15-2023 ALP [Catalytic activity/Vol] 116 U/L 45-117 [facility] Urea nitrogen/Creatinine [Mass ratio] 28.5 mg/mg 10-20 [facility] - Hematology and Cell countsOrdered By: Parker Metzger on 03-15-2023 Nucleated RBC/100 WBC (Bld) [Ratio] 0 % 0-5 [facility] - Microbiology an d Antimicrobial susceptibilityOrdered By: Parkeramira Metzger on 03-15-2023 SARS-CoV-2 (COVID-19) RNA NIURKA+probe Ql (Unsp spec) [facility] M100.678on 03-15-2023 M100.678 SARS-CoV-2 (COVID 19 ) Negative INFLUENZA A Negative INFLUENZA B Negative RSV PCR Negative Normal [facility] Comment on above: Performed By: #### M 100.678 ####[facility] [id number] [place], [place], [id number] No Panel InformationOrdered By: Parkeramira Metzger on 03-15-2023 Estimated Creatinine Clearance Calc 83.26 ml/min [facility] Estimated GFR (MDRD) Amer 131 mL/min >60 [facility] Comment on above: GFR Calc Estimated GFR (MDRD) Non-Af Amer 108 mL/min >60 [facility] Comment on above: Non- GFR Calc Serum or plasma calcium regan urement (mass/volume)Ordered By: Parkeramira Metzger on 03-15-2023 Calcium [Mass/Vol] 8.6 mg/dL 8.5-10.1 [facility] Serum or plasma creatinine m easurement (mass/volume)Ordered By: Parker Metzger on 03-15-2023 Creatinine [Mass/Vol] 0.74 mg/dL Normal 0.70-1.30 [facility] Comment on above: The validity of the calculated GFR & GFRAA in patients over 70 years has not been determined. Clinical correlation is essential. Result Comment: The validity of the calculated GFR GFRAA in patients over 70 years has not been determined. Clinical correlation is essential. Performed By: #### L 100.0100, L500.4050, L503.6005 #### [facility] [address] [place], [place], [address] Serum or plasma urea nitroge n measurement (mass/volume)Ordered By: Parker Metzger on 03-15-2023 Urea nitrogen [Mass/Vol] 21 mg/dL High 7-18 [facility] Comment on above: Performed By: #### L 100.0100, L500.4050, L503.6005 #### [facility] [address] [place], [place], [address] Thin prep Papanicolaou smear with manual screeningOrdered By: Parker Metzger on 03-15-2023 Thin prep Papanicolaou smear with manual screening 3.5 g/dL 3.2-5.0 [facility] Thin prep Papanicolaou smear with manual screening 11 U/L 15-37 [facility] Thin prep Papanicolaou smear with manual screening 2 5-15 [facility] XR Chest PA and Lateralon IMPRESSION: New atelectasis and/or early infiltrate in the right middle lobe. 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 Lungs and pleura: No lung mass. No pleural effusion. No pneumothorax. Stable elevation of the right hemidiaphragm. New atelectasis and/or early infiltrate in the right middle lobe. Cardiomediastinal silhouette: Normal cardiomediastinal silhouette. Bones and soft tissues: Unremarkable. 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 Lungs and pleura: No lung mass. No pleural effusion. No pneumothorax. Stable elevation of the right hemidiaphragm. New atelectasis and/or early infiltrate in the right middle lobe. Cardiomediastinal silhouette: Normal cardiomediastinal silhouette. Bones and soft tissues: Unremarkable. IMPRESSION IMPRESSION: New atelectasis and/or early infiltrate in the right middle lobe. Follow-up to document resolution Ccu Nurse: FATOUMATA Transcribe Date/Time: May 24 2022 1:40P Dictated by : SATISH PATEL MD This examination was interpreted and the report reviewed and electronically signed by: SATISH PATEL MD on May 24 2022 1:46PM EST [facility] XR Chest PA and LateralOrder ed By: Ccf Provider on 05-24-2022 [facility] Comprehensive metabolic 2000 panelon 05-22-2022 Albumin [Mass/Vol] 4.2 g/dL 3.9 - 4.9 g/dL [facility] ALP [Catalytic activity/Vol] 120 U/L High 38 - 113 U/L [facility] ALT [Catalytic activity/Vol] 9 U/L Low 10 - 54 U/L [facility] Anion gap [Moles/Vol] 12 mmol/L 9 - 18 mmol/L [facility] AST [Catalytic activity/Vol] 17 U/L 14 - 40 U/L [facility] Bilirubin [Mass/Vol] 1.1 mg/dL 0.2 - 1 .3 mg/dL [facility] Calcium [Mass/Vol] 10.0 mg/dL 8.5 - 10. 2 mg/dL [facility] Chloride [Moles/Vol] 102 mmol/L 97 - 10 5 mmol/L [facility] CO2 [Moles/Vol] 28 mmol/L 22 - 30 mmol/L [facility] Creatinine [Mass/Vol] 0.83 mg/dL 0.73 - 1.22 mg/dL [facility] Estimated Glomerular Filtration Rate 87 mL/min/1.73m >=60 mL/min/1.73m [facility] Glucose [Mass/Vol] 119 mg/dL High 74 - 99 mg/dL [facility] Potassium [Moles/Vol] 4.8 mmol/L 3.7 - 5.1 mmol/L [facility] Protein [Mass/Vol] 7.3 g/dL 6.3 - 8.0 g/dL [facility] Sodium [Moles/Vol] 142 mmol/L 136 - 144 mmol/L [facility] Urea nitrogen [Mass/Vol] 26 mg/dL High 9 - 24 mg/d L [facility] Lipid 1996 panelon 3 Cholesterol [Mass/Vol] 115 mg/dL <200 mg/dL [facility] Cholesterol in HDL [Mass/Vol] 39 mg/dL Low >39 mg/dL [facility] Cholesterol in LDL [Mass/Vol] 60 mg/dL <100 mg/dL [facility] Cholesterol in LDL/Cholesterol in HDL [Mass ratio] 1.54 {ratio} <2.54 [facility] Cholesterol in VLDL [Mass/Vol] 16 mg/dL <30 mg/dL [facility] Cholesterol non HDL [Mass/Vol] 76 mg/dL <130 mg/dL [facility] Cholesterol.total/Choles terol in HDL [Mass ratio] 2.95 {ratio} <5.10 [facility] Fasting Time 0 hrs [facility] Triglyceride [Mass/Vol] 80 mg/dL <150 mg/dL C [facility] TSH BLDon 05-22-2022 TSH Qn 1.440 m[IU]/L 0.270 - 4.200 mIU/L [facility] XR Chest PA and Lateralon Radiology Study observation (narrative) [facility] CBC panel Auto (Bld)on 05-21 Erythrocyte distribution width (RBC) [Ratio] 13.4 % 11.5 - 15.0 % [facility] Hematocrit (Bld) [Volume fraction] 50.5 % 39.0 - 51.0 % [facility] Hemoglobin (Bld) [Mass/Vol] 15.9 g/dL 13.0 - 17.0 g/dL [facility] MCH (RBC) [Entitic mass] 30.3 pg 26. 0 - 34.0 pg [facility] MCHC (RBC) [Mass/Vol] 31.5 g/dL 30.5 - 36.0 g/dL [facility] MCV (RBC) [Entitic vol] 96.4 fL 80.0 - 100.0 fL [facility] Nucleated RBC (Bld) [#/Vol] <0.01 k/uL [facility] Platelet mean volume (Bld) [Entitic vol] 10.2 fL 9.0 - 12.7 fL [facility] Platelets (Bld) [#/Vol] 166 10*3/uL 150 - 400 k/uL [facility] RBC (Bld) [#/Vol] 5.24 10*6/uL 4.20 - 6.0 0 m/uL [facility] WBC (Bld) [#/Vol] 9.40 10*3/uL 3.70 - 11. 00 k/uL [facility] Absolute lymphocyte counton 12-18-2021 Lymphocytes Auto (Unsp spec) [#/Vol] 0.33 10*3/uL 0.83-4.51 [facility] Work Phone: Basophil percentageon 2021 Basophils/100 WBC (Bld) 0.1 % 0-1 [facility] Work Phone: Bilirubin [Mass/Vol] 0.50 mg/dL 0.20-1.00 [facility] Work Phone: Comment on above: For patients on eltr ombopag therapy, use of Dimension [place] TBIL is not recommended. Chloride [Moles/Vol] 101 mmol/L 98-107 [facility] Work Phone: Eosinophils/100 WBC (Bld) 0.0 % 0-5 [facility] Work Phone: Glucose [Mass/Vol] 173 mg/dL 74-106 [facility] Work Phone: Comment on above: Fasting Glucose resu lt greater than or equal to 126 mg/dL suggests DIABETES MELLITUS per A.D.A. criteria. Neutrophils (Bld) [#/Vol] 13.8 10*3/uL 2.0-7.7 [facility] Work Phone: Neutrophils/100 WBC (Bld) 92.7 % 47-70 [facility] Work Phone: Potassium [Moles/Vol] 4.1 mmol/L 3.5-5.1 [facility] Work Phone: Protein [Mass/Vol] 6.9 g/dL 6.4-8.2 [facility] Work Phone: Sodium [Moles/Vol] 138 mmol/L 136-145 [facility] Work Phone: [phone] WBC (Bld) [#/Vol] 14.9 10*3/uL 4.4-11.0 [facility] Work Phone: Blood erythrocytes count (nu mber/volume)on 12-18-2021 RBC (Bld) [#/Vol] 4.57 10*6/uL 4.6-6.2 [facility] Work Phone: Blood hemoglobin measurement (mass/volume)on 12-18-2021 Hemoglobin (Bld) [Mass/Vol] 14.3 g/dL 13.0-16.5 [facility] Work Phone: Blood lymphocytes/100 leukoc yteson 12-18-2021 Lymphocytes/100 WBC (Bld) 2.2 % 19-41 [facility] Work Phone: Blood monocytes/100 leukocyt eson 12-18-2021 Monocytes/100 WBC (Bld) 4.1 % 0-10 [facility] Work Phone: Blood platelet mean volumeon 12-18-2021 Platelet mean volume (Bld) [Entitic vol] 8.6 fL 6.2-12.0 [facility] Work Phone: Determination of erythrocyte mean corpuscular volume (MCV)on 12-18-2021 MCV (RBC) [Entitic vol] 94.1 fL 80-94 [facility] Work Phone: Hematocrit Auto (Bld) [Volum e fraction]on 12-18-2021 Hematocrit (Bld) [Volume fraction] 43.0 % 40-54 [facility] Work Phone: Laboratory - Chemistry and C hemistry - challengeon 12-18-2021 ALP [Catalytic activity/Vol] 155 U/L 45-117 [facility] Work Phone: ALT [Catalytic activity/Vol] 267 U/L 16-61 [facility] Work Phone: CO2 [Moles/Vol] 32.0 mmol/L 21.0-32.0 [facility] Work Phone: Globulin (S) [Mass/Vol] 4.3 g/dL 2.2-4.2 [facility] Work Phone: Urea nitrogen/Creatinine [Mass ratio] 60.2 mg/mg 10-20 [facility] Work Phone: Laboratory - Hematology and Cell countson 12-18-2021 Erythrocyte distribution width (RBC) [Entitic vol] 44.7 fL 35.1-43.9 [facility] Work Phone: Erythrocyte distribution width (RBC) [Ratio] 13.0 % 11.6-14.6 [facility] Work Phone: Immature granulocytes/100 WBC (Bld) 0.900 % 0.0-0.9 [facility] Work Phone: Comment on above: IG% - Immature Granu locytes (promyelocytes, myelocytes and metamyelocytes) > 1% indicates that a LEFT SHIFT is Present. MCH (RBC) [Entitic mass] 31.3 pg 27.0-32.0 [facility] Work Phone: Nucleated RBC/100 WBC (Bld) [Ratio] 0 % 0-5 [facility] Work Phone: MCHC Auto (RBC) [Mass/Vol]on 12-18-2021 MCHC (RBC) [Mass/Vol] 33.3 g/dL 32-36 [facility] Work Phone: No Panel Informationon 12-18 Estimated Creatinine Clearance Calc 60.66 ml/min [facility] Work Phone: Estimated GFR (MDRD) Amer 166 mL/min >60 [facility] Work Phone: Comment on above: GFR Calc Estimated GFR (MDRD) Non-Af Amer 138 mL/min >60 [facility] Work Phone: Comment on above: Non- GFR Calc Platelets bldon 12-18-2021 Platelets (Bld) [#/Vol] 226 10*3/uL 150-450 [facility] Work Phone: Serum or plasma albumin regan urement (mass/volume)on 12-18-2021 Albumin [Mass/Vol] 2.6 g/dL 3.2-5.0 [facility] Work Phone: Serum or plasma albumin/glob ulin mass ratioon 12-18-2021 Albumin/Globulin [Mass ratio] 0.6 {ratio} 0.9-2.4 [facility] Work Phone: Serum or plasma calcium regan urement (mass/volume)on 12-18-2021 Calcium [Mass/Vol] 8.7 mg/dL 8.5-10.1 [facility] Work Phone: Serum or plasma creatinine m easurement (mass/volume)on 12-18-2021 Creatinine [Mass/Vol] 0.60 mg/dL 0.70-1.30 [facility] Work Phone: Comment on above: The validity of the calculated GFR & GFRAA in patients over 70 years has not been determined. Clinical correlation is essential. Serum or plasma urea nitroge n measurement (mass/volume)on 12-18-2021 Urea nitrogen [Mass/Vol] 36 mg/dL 7-18 [facility] Work Phone: Thin prep Papanicolaou smear with manual screeningon 12-18-2021 Thin prep Papanicolaou smear with manual screening 138 U/L 15-37 [facility] Work Phone: Thin prep Papanicolaou smear with manual screening 5 5-15 [facility] Work Phone: Blood manual differential co mment interpretation (narrative result)on 12-15-2021 Manual differential comment Afshin (Bld) [Interp] SCANNED [facility] Work Phone: Laboratory - Chemistry and C hemistry - challengeon 12-15-2021 Natriuretic peptide B (Bld) [Mass/Vol] 163.1 pg/mL 0-100 [facility] Work Phone: No Panel Informationon 12-15 Thyroid Stimulating Hormone (TSH) 0.52 uIU/mL 0.358-3.74 [facility] Work Phone: Absolute lymphocyte counton 12-14-2021 Lymphocytes Auto (Unsp spec) [#/Vol] 0.43 10*3/uL 0.83-4.51 [facility] Work Phone: Basophil percentageon 2021 Basophils/100 WBC (Bld) 0.2 % 0-1 [facility] Work Phone: Chloride [Moles/Vol] 101 mmol/L 98-107 [facility] Work [facility]: Eosinophils/100 WBC (Bld) 0.0 % 0-5 [facility] Work Phone: Glucose [Mass/Vol] 108 mg/dL 74-106 [facility] Work Phone: Comment on above: Fasting Glucose resu lt from 100 to 125 mg/dL suggests IMPAIRED HOMEOSTASIS per A.D.A. criteria. Neutrophils (Bld) [#/Vol] 14.8 10*3/uL 2.0-7.7 [facility] Work Phone: Neutrophils/100 WBC (Bld) 90.8 % 47-70 [facility] Work Phone: Potassium [Moles/Vol] 4.1 mmol/L 3.5-5.1 [facility] Work Phone: Sodium [Moles/Vol] 135 mmol/L 136-145 [facility] Work Phone: WBC (Bld) [#/Vol] 16.3 10*3/uL 4.4-11.0 [facility] Work Phone: [phone] Blood erythrocytes count (nu mber/volume)on 12-14-2021 RBC (Bld) [#/Vol] 4.32 10*6/uL 4.6-6.2 [facility] Work Phone: Blood hemoglobin measurement (mass/volume)on 12-14-2021 Hemoglobin (Bld) [Mass/Vol] 13.3 g/dL 13.0-16.5 [facility] Work Phone: [phone] Blood lymphocytes/100 leukoc yteson 12-14-2021 Lymphocytes/100 WBC (Bld) 2.6 % 19-41 [facility] Work Phone: [phone] Blood monocytes/100 leukocyt eson 12-14-2021 Monocytes/100 WBC (Bld) 5.6 % 0-10 [facility] Work Phone: Blood platelet mean volumeon 12-14-2021 Platelet mean volume (Bld) [Entitic vol] 8.8 fL 6.2-12.0 [facility] Work Phone: Determination of erythrocyte mean corpuscular volume (MCV)on 12-14-2021 MCV (RBC) [Entitic vol] 95.1 fL 80-94 [facility] Work Phone: Hematocrit Auto (Bld) [Volum e fraction]on 12-14-2021 Hematocrit (Bld) [Volume fraction] 41.1 % 40-54 [facility] Work Phone: Laboratory - Chemistry and C hemistry - challengeon 12-14-2021 CO2 [Moles/Vol] 30.0 mmol/L 21.0-32.0 [facility] Work Phone: Urea nitrogen/Creatinine [Mass ratio] 37.1 mg/mg 10-20 [facility] Work Phone: Laboratory - Hematology and Cell countson 12-14-2021 Erythrocyte distribution width (RBC) [Entitic vol] 47.7 fL 35.1-43.9 [facility] Work Phone: Erythrocyte distribution width (RBC) [Ratio] 13.5 % 11.6-14.6 [facility] Work Phone: Immature granulocytes/100 WBC (Bld) 0.800 % 0.0-0.9 [facility] Work Phone: Comment on above: IG% - Immature Granu locytes (promyelocytes, myelocytes and metamyelocytes) > 1% indicates that a LEFT SHIFT is Present. MCH (RBC) [Entitic mass] 30.8 pg 27.0-32.0 [facility] Work Phone: Nucleated RBC/100 WBC (Bld) [Ratio] 0 % 0-5 [facility] Work Phone: MCHC Auto (RBC) [Mass/Vol]on 12-14-2021 MCHC (RBC) [Mass/Vol] 32.4 g/dL 32-36 [facility]: No Panel Informationon 12-14 Troponin I High Sensitivity 343 pg/mL 3.0-78.0 [facility] Work Phone: Comment on above: Critical Result(s) C alled at: 22:53:05 12/14/2021 by: Lacie Herrera. Results read back by same. Please Note: New Test Units and Gender Specific Reference Ranges. For more information see Policy Stat Procedure [place] High Sensitivity Troponin (TNIH) and attachments. D-Dimer Quantitative (PE/DVT) 1.54 FEU/ug/m 0.27-0.49 [facility] Work Phone: Comment on above: D-Dimer ELEVATED (>0 .49): Additional studies and clinicalassessments are indicated to conclude diagnosis of:Deep Vein Thrombosis (DVT) or Pulmonary Embolism (PE)CRITICAL VALUE VERIFIED. CALLED TO ROSCOE BRIZUELA12/14/21 190 Samson Walters.RESULTS READ BACK BY SAME . Estimated Creatinine Clearance Calc 62.53 ml/min [facility] Work Phone: Estimated GFR (MDRD) Amer 95 mL/min >60 [facility] Work Phone: Comment on above: GFR Calc Estimated GFR (MDRD) Non-Af Amer 79 mL/min >60 [facility] Work Phone: Comment on above: Non- GFR Calc Troponin I High Sensitivity 522 pg/mL 3.0-78.0 [facility] Work Phone: Comment on above: Critical Result(s) C alled at: 16:42:10 12/14/2021 by: Lacie GORMANccluclaudia. Results read back by same. Please Note: New Test Units and Gender Specific Reference Ranges. For more information see Policy Stat Procedure [place] High Sensitivity Troponin (TNIH) and attachments. Platelets bldon 12-14-2021 Platelets (Bld) [#/Vol] 199 10*3/uL 150-450 [facility] Work Phone: Serum or plasma calcium regan urement (mass/volume)on 12-14-2021 Calcium [Mass/Vol] 9.2 mg/dL 8.5-10.1 [facility] Work Phone: Serum or plasma creatinine m easurement (mass/volume)on 12-14-2021 Creatinine [Mass/Vol] 0.97 mg/dL 0.70-1.30 [facility] Work Phone: Comment on above: The validity of the calculated GFR & GFRAA in patients over 70 years has not been determined. Clinical correlation is essential. Serum or plasma urea nitroge n measurement (mass/volume)on 12-14-2021 Urea nitrogen [Mass/Vol] 36 mg/dL 7-18 [facility] Work Phone: Thin prep Papanicolaou smear with manual screeningon 12-14-2021 Thin prep Papanicolaou smear with manual screening 4 - [facility] Work Phone: NM CARDIAC PERF STRESS/PHARM on 06-19-2018 NM CARDIAC PERF STRESS/PHARM * * *Final Report* * * DATE OF EXAM: Jun 19 2018 11:56AM JAZMIN 0006 - NM CARDIAC PERF STRESS/PHARM / PROCEDURE REASON: multiple diagnoses * * * * Physician Interpretation * * * * PATIENT: Name: ARTURO PEDERSEN Age: 77 years Gender: M CONCLUSIONS: 1. SPECT Perfusion Study: Normal. 2. There is no scintigraphic evidence for inducible ischemia. 3. No evidence of scarred myocardium. 4. Functional capacity N/A (pharmacological). 5. Left ventricle is normal in size. The left ventricle systolic function is normal. 6. Right ventricle is normal in size. 7. This is a low risk scan. LVEF % 79 Prior Study Comparison Prior nuclear cardiology exam was performed on [..].11/27/2008. Nuclear Med Report:1-Day Tc-Tetrofosmin Gated SPECT Myocardial Perfusion with Regadenoson Stress: Myocardial perfusion imaging was performed at rest 30 minutes following the IV injection of Tc-99m tetrofosmin. The patient received 0.4 mg of regadenoson, via rapid IV push, immediately followed by Tc-99m tetrofosmin IV. Gated post stress tomographic imaging was performed 30 to 60 minutes later. See administered doses below. [facility] Date of service: 06/19/2018 9:36:42 AM Ordering Physician: Shayne Cedeño Requesting Physician: Indication: Assessment for known CAD. Interpreting physician: Rosalino Murray DO Patient History: History of hypertension, dyslipidemia, coronary heart disease and Prior smoker. Medications currently taking are diuretic, anti-depressants, B-karis, statins, ASA, Ca Karis and plavix. Previous Cardiovascular Interventions: CABG (1993 x2) Height: 180.34 cm BSA: 2.15 m? Weight: 92.53 kg BMI: 28.5 kg/m? Exam Type: Rest Stress Radiopharm: Tc-99m Tetrofosmin Tc-99m Tetrofosmin Dosage(mCi): 11.2 29.5 Atten Correction: not performed not performed Stress Agent: Regadenoson 0.4mg Supply provided from [facility] Resting Heart Rate: 55 bpm Resting Blood Press: 173/79 mmHg Image Quality The overall study imaging quality was deemed to be fair. FINDINGS: LVEF: 79 % LEFT VENTRICLE The left ventricle is normal in size. Left ventricular systolic function is normal. Right Ventricle The right ventricle is normal in size. Stress Test Findings: There is no scintigraphic evidence for inducible ischemia. There is no evidence of scarring. The stress test was terminated due to the following: End of Protocol. Peak HR 68 bpm. (48 % MPHR) Peak BP 197 mmHg/60 mmHg Patient experienced shortness of breath and headache during stress. Stress ECG normal ST segment response and normal sinus rhythm. Stress complications: none. Final Ccu Nurse: LAURA Transcrimagdalena Date/Time: Jun 19 2018 9:36A Dictated by : ROSALINO MURRAY DO This examination was interpreted and the report reviewed and electronically signed by: ROSALINO MURRAY DO on Jun 19 2018 4:55PM EST [id number] Normal [facility] NUCLEAR STRESS LEXISCAN (CAR D)on 06-19-2018 NUCLEAR STRESS LEXISCAN (CARD) NAME : ARTURO PEDERSEN PID : [id number] : 1940 Gender : Male Race : ORD : [id number] Procedure Date : Jun 19 2018 10:44:58 Edit Date : Jun 22 2018 10:58:35 Conclusions:PLEASE REFER TO IMAGING SECTION IN EPIC FOR COMPLETE INTERPRETATION OF STRESS TEST AND MYOCARDIAL PERFUSION IMAGING Protocol Name : JOANN Time In Exercise Phase : 00:06:00 Max. Systolic BP : 197 mmHg Max Diastolic BP : 60 mmHg Max Heart Rate : 71 BPM Max Predicted Heart Rate : 142 BPM Recovery ECG Response (OLD) : Reason For Termination : End of Protocol Test Reason : Pre-Op Evaluation Location :[facility] Overread By : ROSALINO MURRAY D.O. Edited By : Shraddha Cha Referred By : SHAYNE CEDEÑO Acquired by : Shraddha Cha [facility] 06-16-2018 [facility] Telephone ([facility]) ARTURO PEDERSEN ([id number]) 1940 M Date Time Provider Department 06/16/18 NATALIA LIZ (RN) [facility] During your visit today, we recorded the following information about you: Natalia Liz RN, RN 06/16/2018 1:38 PM Signed Spoke with patient's regarding reminder for stress test on Tuesday and given instructions Allergies As of Date: 06/16/2018 Noted Allergy Reaction PERCODAN (OXYCODONE-ASPIRIN) 12/17/2004 1 - Mental Status Change Date Reviewed: 06/12/2018 Reviewed by: Shayne Cedeño - Fully Assessed Reason for Visit: Reminder Call [[id number]] Prescriptions as of 06/16/2018 Sig: POTASSIUM CHLORIDE ER 10 MEQ * Take 2 tablets by mouth daily* HYDROCHLOROTHIAZIDE 25 MG TAB* Take 1 tablet by mouth once d* ESCITALOPRAM 20 MG TABLET Take 1 tablet by mouth once d* LEVOTHYROXINE 50 MCG TABLET Take 1 tablet by mouth once d* ATENOLOL 50 MG TABLET Take 1 tablet by mouth once d* ATORVASTATIN 40 MG TABLET Take 1 tablet by mouth once d* SPIRONOLACTONE 25 MG TABLET Take 1 tablet by mouth once d* NITROGLYCERIN 0.3 MG SUBLINGU* Dissolve 1 tablet under the t* RANITIDINE 150 MG TABLET Take 1 tablet by mouth twice * VIKAS ASPIRIN 325 MG TABLET Take one(1) tablet daily. 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*INVALID FOR* Pure hypercholesterolemia [E78.00] INVALID FOR* Encounter Status:Closed by NATALIA LIZ on 06/16/18 [facility] COVID-19 virus antigen assay SARS-CoV-2 (COVID-19) Ag IA.rapid Ql (Resp) [facility] Work Phone: Legionella pneumophila ag Legionella Antigen Legionella Antigen [facility] Work Phone: No Panel Information Streptococcus pneumoniae Antigen (M [facility] Work Phone: Vital Signs Date Time Vital Sign Value Performing Clinician Facility 07-13-2024 16:53-0400 Diastolic blood pressure 76 mm[Hg] Paddy Zaidi MD Work Phone: [facility] 07-13-2024 16:53-0400 Heart rate 98 /min Paddy Zaidi MD Work Phone: [facility] 07-13-2024 16:53-0400 Systolic blood pressure 125 mm[Hg] Paddy Zaidi MD Work Phone: [facility] 03-27-2024 13:52-0500 Diastolic blood pressure 80 mm[Hg] Flavia Smith MOBILE LAB TECHNICIAN.LABOR SPECIALIST Work Phone: [facility] 03-27-2024 13:52-0500 Heart rate 90 /min Flavia Click MOBILE LAB TECHNICIAN.LABOR SPECIALIST Work Phone: [facility] 03-27-2024 13:52-0500 Respiratory rate 18 /min Flavia Click MOBILE LAB TECHNICIAN.LABOR SPECIALIST Work Phone: [facility] 03-27-2024 13:52-0500 SaO2% (BldA) [Mass fraction] 95 % Flavia Click MOBILE LAB TECHNICIAN.LABOR SPECIALIST Work Phone: [facility] 03-27-2024 13:52-0500 Systolic blood pressure 122 mm[Hg] Flavia Click MOBILE LAB TECHNICIAN.LABOR SPECIALIST Work Phone: [facility] 03-27-2024 13:47-0500 Heart rate 107 /min Pulm Wstr Work Phone: [facility] 03-27-2024 13:47-0500 SaO2% (BldA) [Mass fraction] 96 % Pulm Wstr Work Phone: [facility] Comment on above: RA resting 03-05-2024 15:07-0500 Body height 171.5 cm Raina Huynh MD Work Phone: [facility] 03-05-2024 15:07-0500 Body mass index (BMI) [Ratio] 32.69 kg/m2 Raina Huynh MD Work Phone: [facility] 03-05-2024 15:07-0500 Body weight 96.16 kg Raina Huynh MD Work Phone: [facility] 03-05-2024 15:07-0500 Diastolic blood pressure 68 mm[Hg] Raina Huynh MD Work Phone: [facility] 03-05-2024 15:07-0500 Heart rate 112 /min Raina Huynh MD Work Phone: [facility] 03-05-2024 15:07-0500 Respiratory rate 14 /min Raina Huynh MD Work Phone: [facility] 03-05-2024 15:07-0500 SaO2% (BldA) [Mass fraction] 96 % Raina Huynh MD Work Phone: [facility] 03-05-2024 15:07-0500 Systolic blood pressure 122 mm[Hg] Raina Huynh MD Work Phone: [facility] 03-05-2024 14:42-0500 Body height 171.5 cm Pulm Wstr Work Phone: [facility] 03-05-2024 14:42-0500 Body mass index (BMI) [Ratio] 32.69 kg/m2 Pulm Wstr Work Phone: [facility] 03-05-2024 14:42-0500 Body weight 96.16 kg Pulm Wstr Work Phone: [facility] 03-05-2024 14:42-0500 Heart rate 112 /min Pulm Wstr Work Phone: [facility] 03-05-2024 14:42-0500 Respiratory rate 14 /min Pulm Wstr Work Phone: [facility] 03-05-2024 14:42-0500 SaO2% (BldA) [Mass fraction] 96 % Pulm Wstr Work Phone: [facility] Comment on above: 2L pulse dose 02-14-2024 14:06-0500 Diastolic blood pressure 78 mm[Hg] Hever Tanya MOBILE LAB TECHNICIAN.LABOR SPECIALIST Work Phone: [facility] 02-14-2024 14:06-0500 Heart rate 96 /min Hever Tanya MOBILE LAB TECHNICIAN.LABOR SPECIALIST Work Phone: [facility] 02-14-2024 14:06-0500 Systolic blood pressure 132 mm[Hg] Hever Tanya MOBILE LAB TECHNICIAN.LABOR SPECIALIST Work Phone: [facility] 06-07-2023 16:30-0400 Body height 180.3 cm Paddy Zaidi MD Work Phone: [facility] 06-07-2023 16:30-0400 Body mass index (BMI) [Ratio] 30.15 kg/m2 Paddy Zaidi MD Work Phone: [facility] 06-07-2023 16:30-0400 Body weight 98 kg Paddy Zaidi MD Work Phone: [facility] 06-07-2023 16:30-0400 Diastolic blood pressure 80 mm[Hg] Paddy Zaidi MD Work Phone: [facility] 06-07-2023 16:30-0400 Heart rate 82 /min Paddy Zaidi MD Work Phone: [facility] 06-07-2023 16:30-0400 SaO2% (BldA) [Mass fraction] 95 % Paddy Zaidi MD Work Phone: [facility] 06-07-2023 16:30-0400 Systolic blood pressure 138 mm[Hg] Paddy Zaidi MD Work Phone: [facility] 03-15-2023 15:52-0500 Diastolic blood pressure 100 mm[Hg] [facility] 03-15-2023 15:52-0500 Heart rate 106 /min [facility] 03-15-2023 15:52-0500 Respiratory rate 22 /min [facility] 03-15-2023 15:52-0500 SaO2% (BldA) [Mass fraction] 95 % [facility] 03-15-2023 15:52-0500 Systolic blood pressure 159 mm[Hg] [facility] 03-15-2023 14:10-0500 Body mass index (BMI) [Ratio] 29.9 kg/m2 [facility] 03-15-2023 14:10-0500 Body weight 97.4 kg [facility] 03-15-2023 13:17-0500 Body height 180.34 cm [facility] 03-15-2023 13:17-0500 Body temperature 98.5 [degF] [facility] 09-22-2022 22:00-0400 Body mass index (BMI) [Ratio] 27.9 kg/m2 [facility] 09-22-2022 22:00-0400 Body weight 91 kg [facility] 09-22-2022 21:47-0400 Heart rate 69 /min [facility] 09-22-2022 21:47-0400 Respiratory rate 16 /min [facility] 09-22-2022 21:47-0400 SaO2% (BldA) [Mass fraction] 97 % [facility] 09-22-2022 18:34-0400 Body height 180.34 cm [facility] 09-22-2022 18:34-0400 Body temperature 97.3 [degF] [facility] 09-22-2022 18:34-0400 Diastolic blood pressure 65 mm[Hg] [facility] 09-22-2022 18:34-0400 Systolic blood pressure 149 mm[Hg] [facility] 06-02-2022 12:58-0400 Body height 180.3 cm Hever Pamela MOBILE LAB TECHNICIAN.LABOR SPECIALIST Work Phone: [facility] 06-02-2022 12:58-0400 Body weight 92.99 kg Hever Pamela MOBILE LAB TECHNICIAN.LABOR SPECIALIST Work Phone: [facility] 06-02-2022 12:58-0400 Diastolic blood pressure 68 mm[Hg] Hever Pamela MOBILE LAB TECHNICIAN.LABOR SPECIALIST Work Phone: [facility] 06-02-2022 12:58-0400 Heart rate 84 /min Hever Pamela MOBILE LAB TECHNICIAN.LABOR SPECIALIST Work Phone: [facility] 06-02-2022 12:58-0400 SaO2% (BldA) [Mass fraction] 97 % Hever Pamela MOBILE LAB TECHNICIAN.LABOR SPECIALIST Work Phone: [facility] 06-02-2022 12:58-0400 Systolic blood pressure 134 mm[Hg] Hever Pamela MOBILE LAB TECHNICIAN.LABOR SPECIALIST Work Phone: [facility] 05-21-2022 16:12-0400 Body height 180.3 cm Paddy Zaidi MD Work Phone: [facility] 05-21-2022 16:12-0400 Body temperature 98.4 [degF] Paddy Zaidi MD Work Phone: [facility] 05-21-2022 16:12-0400 Body weight 88.22 kg Paddy Zaidi MD Work Phone: [facility] 05-21-2022 16:12-0400 Diastolic blood pressure 83 mm[Hg] Paddy Zaidi MD Work Phone: [facility] 05-21-2022 16:12-0400 Heart rate 71 /min Paddy Zaidi MD Work Phone: [facility] 05-21-2022 16:12-0400 Respiratory rate 16 /min Paddy Zaidi MD Work Phone: [facility] 05-21-2022 16:12-0400 SaO2% (BldA) [Mass fraction] 93 % Paddy Zaidi MD Work Phone: [facility] 05-21-2022 16:12-0400 Systolic blood pressure 137 mm[Hg] Paddy Zaidi MD Work Phone: [facility] 12-28-2021 09:17-0500 Body mass index (BMI) [Ratio] 27.8 kg/m2 Dr. Shayne Zaidi Work Phone: [facility] Work Phone: 12-28-2021 09:17-0500 Body temperature 97 [degF] Dr. Shayne Zaidi Work Phone: [facility] Work Phone: 12-28-2021 09:17-0500 Body weight 90.[address] Shayne Zaidi Work Phone: [facility] Work Phone: 12-28-2021 09:17-0500 Diastolic blood pressure 76 mm[Hg] Dr. Shayne Zaidi Work Phone: [facility] Work Phone: 12-28-2021 09:17-0500 Heart rate 72 /min Dr. Shayne Zaidi Work Phone: [facility] Work Phone: 12-28-2021 09:17-0500 Respiratory rate 18 /min Dr. Shayne Zaidi Work Phone: [facility] Work Phone: 12-28-2021 09:17-0500 SaO2% (BldA) [Mass fraction] 94 % Dr. Shayne Zaidi Work Phone: [facility] Work Phone: 12-28-2021 09:17-0500 Systolic blood pressure 140 mm[Hg] Dr. Shayne Zaidi Work Phone: [facility] Work Phone: 12-23-2021 11:19-0500 Body height 180.3 cm Paddy Zaidi MD Work Phone: [facility] 12-23-2021 11:19-0500 Body temperature 98.4 [degF] Paddy Zaidi MD Work Phone: [facility] 12-23-2021 11:19-0500 Body weight 87.09 kg Paddy Zaidi MD Work Phone: [facility] 12-23-2021 11:19-0500 Diastolic blood pressure 54 mm[Hg] Paddy Zaidi MD Work Phone: [facility] 12-23-2021 11:19-0500 Heart rate 87 /min Paddy Zaidi MD Work Phone: [facility] 12-23-2021 11:19-0500 SaO2% (BldA) [Mass fraction] 87 % Paddy Zaidi MD Work Phone: [facility] 12-23-2021 11:19-0500 Systolic blood pressure 91 mm[Hg] Paddy Zaidi MD Work Phone: [facility] 12-18-2021 15:00-0500 Heart rate 95 /min Dr. Shayne Zaidi Work Phone: [facility] Work Phone: 12-18-2021 14:55-0500 Body temperature 97.5 [degF] Dr. Shayne Zaidi Work Phone: [facility] Work Phone: 12-18-2021 14:55-0500 Diastolic blood pressure 88 mm[Hg] Dr. Shayne Zaidi Work Phone: [facility] Work Phone: 12-18-2021 14:55-0500 Inhaled oxygen flow rate 2 L/min Dr. Shayne Zaidi Work Phone: [facility] Work Phone: 12-18-2021 14:55-0500 Respiratory rate 16 /min Dr. Shayne Zaidi Work Phone: [facility] Work Phone: 12-18-2021 14:55-0500 SaO2% (BldA) [Mass fraction] 96 % Dr. Shayne Zaidi Work Phone: [facility] Work Phone: 12-18-2021 14:55-0500 Systolic blood pressure 128 mm[Hg] Dr. Shayne Zaidi Work Phone: [facility] Work Phone: 12-16-2021 15:05-0500 Body height 180.[address] Shayne Zaidi Work Phone: [facility] Work Phone: 12-16-2021 15:05-0500 Body weight 88.[address] Shayne Zaidi Work Phone: [facility] Work Phone: 12-14-2021 18:22-0500 Body mass index (BMI) [Ratio] 27.1 kg/m2 Dr. Shayne Zaidi Work Phone: [facility] Work Phone: 12-14-2021 17:51-0500 Diastolic blood pressure 84 mm[Hg] Dr. Shayne Zaidi Work Phone: [facility] Work Phone: 12-14-2021 17:51-0500 Heart rate 101 /min Dr. Shayne Zaidi Work Phone: [facility] Work Phone: 12-14-2021 17:51-0500 Inhaled oxygen flow rate 2 L/min Dr. Shayne Zaidi Work Phone: [facility] Work Phone: 12-14-2021 17:51-0500 Respiratory rate 28 /min Dr. Shayne Zaidi Work Phone: [facility] Work Phone: 12-14-2021 17:51-0500 SaO2% (BldA) [Mass fraction] 93 % Dr. Shayne Zaidi Work Phone: [facility] Work Phone: 12-14-2021 17:51-0500 Systolic blood pressure 142 mm[Hg] Dr. Shayne Zaidi Work Phone: [facility] Work Phone: 12-14-2021 17:05-0500 Body temperature 98.1 [degF] Dr. Shayen Zaidi Work Phone: [facility] Work Phone: 12-14-2021 15:17-0500 Body height 180.[address] Shayne Zaidi Work Phone: [facility] Work Phone: 12-14-2021 15:17-0500 Body mass index (BMI) [Ratio] 28.3 kg/m2 Dr. Shayne Zaidi Work Phone: [facility] Work Phone: 12-14-2021 15:17-0500 Body weight 92.[address] Shayne Zaidi Work Phone: [facility] Work Phone: 06-22-2021 13:25-0400 Diastolic blood pressure 80 mm[Hg] Hever Santiago APRN.CNP Work Phone: [facility] 06-22-2021 13:25-0400 Systolic blood pressure 138 mm[Hg] Hever Pamela MOBILE LAB TECHNICIAN.LABOR SPECIALIST Work Phone: [facility] 06-22-2021 12:58-0400 Body height 180.3 cm Hever Pamela MOBILE LAB TECHNICIAN.LABOR SPECIALIST Work Phone: [facility] 06-22-2021 12:58-0400 Body weight 88.36 kg Hever Pamela MOBILE LAB TECHNICIAN.LABOR SPECIALIST Work Phone: [facility] 06-22-2021 12:58-0400 Heart rate 65 /min Hever Pamela MOBILE LAB TECHNICIAN.LABOR SPECIALIST Work Phone: [facility] Encounters Encounter Date Encounter Type Care Provider Facility Start: 09-08-2024 End: 09-08-2024 ambulatory Yudelka Harris RN NURSE LABOR SPECIALIST Comment on above: Patient Update Start: 09-05-2024 End: 09-05-2024 Telephone encounter Sudha Noe MD Work Phone: Cardiology Comment on above: Appointment Start: 08-14-2024 End: 08-14-2024 Refill Paddy Zaidi MD Work Phone: [facility] Comment on above: Refill Request Start: 07-23-2024 End: 07-23-2024 Refill Hever Martínez APRN.LABOR SPECIALIST Work Phone: [facility] Comment on above: Refill Request Start: 07-13-2024 End: 07-13-2024 ambulatory PADDY ZAIDI Facility:[facility] Start: 07-13-2024 End: 07-13-2024 Office outpatient visit 25 minutes Paddy Zaidi MD Work Phone: [facility] Comment on above: Oxygen dependent (Pr imary Dx); Atherosclerotic cardiovascular disease; Anxiety attack; Leg swelling; Adjustment disorder with mixed anxiety and depressed mood; PAD (peripheral artery disease); Acquired hypothyroidism; Pure hypercholesterolemia; Idiopathic peripheral neuropathy; Atherosclerosis of [place] coronary artery of [place] heart without angina pectoris Start: 07-13-2024 End: 07-13-2024 Telephone encounter Flavia Smith APRN.LABOR SPECIALIST Work Phone: Pulmonary Medicine Start: 07-12-2024 End: 07-16-2024 Refill Paddy Zaidi MD Work Phone: [facility] Comment on above: Refill Request Start: 07-03-2024 End: 09-02-2024 Follow-up encounter Hever Martínez APRN.LABOR SPECIALIST Work Phone: [facility] Start: 06-29-2024 End: 06-29-2024 ambulatory PADDY ZAIDI Facility:[facility] Start: 06-29-2024 End: 08-29-2024 Follow-up encounter Georgiana Valdivia APRN.LABOR SPECIALIST Work Phone: [facility] Comment on above: Results Start: 06-29-2024 End: 06-29-2024 ambulatory PADDY ZAIDI Facility:[facility] Start: 06-18-2024 End: 06-18-2024 ambulatory Brayan Stallworth RN Work Phone: [employer] [facility] Comment on above: Population Health Na vigation Outreach ([employer] ) Start: 06-16-2024 End: 06-19-2024 Refill Hever Martínez APRN.LABOR SPECIALIST Work Phone: [facility] Comment on above: Refill Request Start: 04-26-2024 End: 04-26-2024 ambulatory Talia Ferreira MA [facility] [place] Start: 04-26-2024 End: 04-26-2024 Patient encounter procedure [facility] Fer[facility] [place] Comment on above: Population Health Na vigation Outreach ([employer] High Risk - Attempt 2) Start: 04-08-2024 End: 04-09-2024 Refill Hever Martínez APRN.LABOR SPECIALIST Work Phone: [facility] Comment on above: Refill Request Start: 03-27-2024 End: 03-27-2024 ambulatory RAINA HUYNH Facility:[facility] Start: 03-27-2024 End: 03-27-2024 Office outpatient visit 25 minutes Flavia Smith APRN.LABOR SPECIALIST Work Phone: Pulmonary Medicine Comment on above: 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) (Primary Dx); Hypoxia; Pneumonia of left lower lobe due to infectious organism; Lung nodules Start: 03-27-2024 End: 03-27-2024 ambulatory Pulm Lab [facility] Work Phone: PULM LAB [facility] Comment on above: Spirometry Start: 03-27-2024 End: 03-27-2024 Patient encounter procedure Pulm Lab [facility] Work Phone: PULM LAB [facility] Start: 03-27-2024 End: 03-27-2024 Subsequent hospital visit by physician [facility] ([facility]) Work Phone: Cat Scan Comment on above: Pneumonia of left lo wer lobe due to infectious organism [J18.9] Start: 03-21-2024 End: 03-21-2024 Refill Paddy Zaidi MD Work Phone: [facility] Comment on above: Refill Request Appointment Start: 03-20-2024 End: 03-20-2024 [facility] [place] Start: 03-20-2024 End: 03-20-2024 Patient encounter procedure Elenita Dey MA [facility] Comment on above: Population Health Na vigation Outreach ([employer] High Risk Attempt #1 ) Start: 03-19-2024 ambulatory RAINA HUYNH Fac ility:[facility] Start: 03-11-2024 End: 03-13-2024 Refill Paddy Zaidi MD Work Phone: [facility] Comment on above: Refill Request Start: 03-06-2024 End: 03-21-2024 Telephone encounter Raina Huynh MD Work Phone: Pulmonary Medicine Comment on above: Anticoagulation Start: 03-05-2024 End: 03-05-2024 ambulatory Pulm Lab [facility] Work Phone: [facility] Comment on above: Spirometry Start: 03-05-2024 End: 03-05-2024 Patient encounter procedure Pulm Lab [facility] Work Phone: PULM LAB [facility] Comment on above: 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) (Primary Dx); Pneumonia of left lower lobe due to infectious organism; Lung nodules; Former smoker; Chronic hypoxemic respiratory failure (HCC) Start: 03-02-2024 End: 03-02-2024 ambulatory PADDY ZAIDI Facility:[facility] Start: 02-15-2024 End: 02-16-2024 Telephone encounter Paddy Zaidi MD Work Phone: [facility] Comment on above: Medication Problem Start: 02-14-2024 End: 02-14-2024 ambulatory PADDY ZAIDI Facility:[facility] Start: 02-14-2024 End: 02-14-2024 Office outpatient visit 25 minutes Hever Martínez APRN.LABOR SPECIALIST Work Phone: [facility] Comment on above: Pneumonia of right l ower lobe due to infectious organism (Primary Dx); Chronic obstructive pulmonary disease, unspecified COPD type (HCC); Adjustment disorder with mixed anxiety and depressed mood; Paroxysmal atrial fibrillation ([facility]); Encounter for immunization Start: 02-14-2024 End: 02-14-2024 Telephone encounter Hever Martínez APRN.LABOR SPECIALIST Work Phone: [facility] Comment on above: Appointment Refill Request Start: 02-13-2024 End: 02-13-2024 Telephone encounter Paddy Zaidi MD Work Phone: [facility] Comment on above: Received Outside Med ical Records ([facility]) Start: 02-07-2024 End: 02-07-2024 Emergency department patient visit Shayne Zaidi Facility:[facility] Start: 12-30-2023 End: 01-02-2024 Refill Paddy Zaidi MD Work Phone: [facility] Comment on above: Refill Request Start: 12-21-2023 End: 12-21-2023 Telephone encounter Paddy Zaidi MD Work Phone: [facility] Comment on above: Orders ([employer] annual oxygen rx) Start: 12-01-2023 End: 12-01-2023 Refill Paddy Zaidi MD Work Phone: [facility] Comment on above: Refill Request Start: 11-28-2023 End: 11-29-2023 Refill Paddy Zaidi MD Work Phone: [facility] Comment on above: Refill Request Start: 09-02-2023 ambulatory Sarah Robison RN Work Phone: [employer] Start: 08-25-2023 ambulatory Corrina GAN [facility] Start: 08-25-2023 Home visit Corrina Collazo [employer] Comment on above: Population Health Na vigation Outreach ([employer] Attributed Member- Needs 2023 Medicare Wellness Appt Scheduled/) Start: 08-03-2023 ambulatory Elenita Dey [facility] [place] Start: 08-03-2023 Patient encounter procedure Elenita Dey MA [facility] [place] Comment on above: Population Health Na vigation Outreach ([employer] AWV/HCC and care gaps /) Start: 07-11-2023 Refill Paddy quintana MD Work Phone: [facility] Comment on above: Refill Request Medication Request Start: 06-13-2023 Telephone encounter Paddy Zaidi MD Work Phone: [facility] Comment on above: Results (Labs ) Start: 06-07-2023 End: 06-07-2023 Patient encounter procedure Paddy Zaidi MD Work Phone: [facility] Comment on above: 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) (Primary Dx); Hypothyroidism, unspecified type; Essential hypertension; Mixed hyperlipidemia; Peripheral polyneuropathy; SOB (shortness of breath); Hypoxemia Start: 05-27-2023 Refill Paddy quintana MD Work Phone: [facility] Comment on above: Refill Request Start: 04-15-2023 ambulatory Corrina Barakat MA [facility] [place] Comment on above: Population Health Na vigation Outreach ([employer] HCCs 2.16.24) Start: 04-08-2023 Refill Paddy quintana MD Work Phone: [facility] Comment on above: Refill Request Start: 03-18-2023 Telephone encounter Paddy Zaidi MD Work Phone: [facility] Comment on above: Received Outside Med ical Records ([facility] 03/15/23) Start: 03-15-2023 End: 03-15-2023 [facility] Start: 12-28-2022 Telephone encounter Paddy Zaidi MD Work Phone: [facility] Comment on above: Orders ([employer] annual oxygen prescription renewal ) Start: 09-23-2022 Telephone encounter Paddy Zaidi MD Work Phone: [facility] Comment on above: Received Outside Med ical Records ([facility] 09/22/22) Start: 09-22-2022 End: 09-22-2022 Emergency department patient visit [facility] Work Phone: Start: 08-20-2022 Telephone encounter Paddy Zaidi MD Work Phone: [facility] Comment on above: Patient Question Start: 06-22-2022 Telephone encounter Hever page MOBILE LAB TECHNICIAN.LABOR SPECIALIST Work Phone: [facility] Comment on above: Orders Start: 06-02-2022 End: 06-02-2022 Office outpatient visit 15 minutes Hever Santiago MOBILE LAB TECHNICIAN.LABOR SPECIALIST Work Phone: [facility] Comment on above: Pneumonia of right m iddle lobe due to infectious organism (Primary Dx); ED (erectile dysfunction) of organic origin; Adjustment disorder with mixed anxiety and depressed mood Start: 05-25-2022 ambulatory Hever Santiago A PRN.LABOR SPECIALIST Work Phone: [facility] Comment on above: Results Start: 05-22-2022 End: 05-22-2022 Subsequent hospital visit by physician X[facility] Work Phone: Radiology Comment on above: Coronary artery dise ase involving cahuilla coronary artery of cahuilla heart with angina pectoris (HCC) [I25.119] Start: 05-21-2022 End: 05-21-2022 Patient encounter procedure Paddy Zaidi MD Work Phone: Family Practice Comment on above: Coronary artery dise ase involving cahuilla coronary artery of cahuilla heart with angina pectoris (HCC) (Primary Dx); Essential hypertension; Hypokalemia; Peripheral polyneuropathy; Acquired hypothyroidism; Anxiety; Paroxysmal atrial fibrillation (HCC); SOB (shortness of breath); Mixed hyperlipidemia; Hypothyroidism, unspecified type; Chronic obstructive pulmonary disease, unspecified COPD type (HCC) Start: 05-14-2022 Telephone encounter Paddy Zaidi MD Work Phone: Family Practice Comment on above: Medication Problem Start: 04-27-2022 ambulatory Talia Hood [facility] Comment on above: Population Health Na vigation Outreach ([facility]) Start: 03-30-2022 ambulatory Paddy quintana MD Work Phone: Internal Medicine [facility] [place] Start: 02-19-2022 Telephone encounter Paddy Zaidi MD Work Phone: Family [facility] Comment on above: Medication Problem Start: 01-18-2022 End: 01-18-[address] Shayne Zaidi Work Phone: [facility] Work Phone: Start: 01-18-2022 End: 01-18-[address] Shayne Zaidi Work Phone: [facility] Lab Start: 12-28-2021 Telephone encounter Paddy Zaidi MD Work Phone: Family [facility] Comment on above: Received Outside Med ical Records (Pulmonary Medicine [facility]) Start: 12-28-2021 End: 12-28-[address] Shayne Zaidi Work Phone: [facility]Pulmonary Medicine [facility] Start: 12-25-2021 Telephone encounter Paddy Zaidi MD Work Phone: Family [facility] Comment on above: Received Outside Med ical Records ([facility] 12 lead EKG 12/16/2021 and 12/17/2021) Start: 12-23-2021 Non-patient / Non-visit Dr. 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 12/18/2021) Start: 12-18-2021 Non-patient / Non-visit Dr. Oscar Zaidi Work Phone: [facility] Start: 12-17-2021 Non-patient / Non-visit Dr. Oscar Zaidi Work Phone: [facility] Start: 12-17-2021 Telephone encounter Paddy Zaidi MD Work Phone: Family [facility] Comment on above: Received Outside Med ical Records ([facility]) Start: 12-17-2021 End: 12-18-2021 Non-patient / Non-visit Dr. Shayne Zaidi Work Phone: [facility] Start: 12-16-2021 Non-patient / Non-visit Dr. Oscar Zaidi Work Phone: [facility] Start: 12-16-2021 Telephone encounter Paddy Zaidi MD Work Phone: [facility] Comment on above: Received Outside Med ical Records ([facility] Cardiac Cath) Start: 12-16-2021 Non-patient / Non-visit Dr. Oscar Zaidi Work Phone: [facility] Start: 12-15-2021 Telephone encounter Paddy Zaidi MD Work Phone: [facility] Comment on above: Received Outside Med ical Records ([facility]) Start: 12-15-2021 Non-patient / Non-visit Dr. Oscar Zaidi Work Phone: [facility] Start: 12-15-2021 Non-patient / Non-visit Dr. Oscar Zaidi Work Phone: [facility] Start: 12-14-2021 Non-patient / Non-visit Dr. Oscar Zaidi Work Phone: [facility] Start: 12-14-2021 Non-patient / Non-visit Dr. Oscra Zaidi Work Phone: [facility] Start: 12-14-2021 End: 12-18-2021 Evaluation and management of inpatient Dr. Shayne Zaidi Work Phone: [facility] Start: 11-13-2021 Refill Hever MEANSNOlyLABOR SPECIALIST Work Phone: [facility] Comment on above: Refill Request Start: 09-14-2021 Telephone encounter Hever page MOBILE LAB TECHNICIANOlyLABOR SPECIALIST Work Phone: [facility] Comment on above: Results Start: 09-09-2021 Refill Hever Santiago A PRN.LABOR SPECIALIST Work Phone: [facility] Comment on above: Refill Request Start: 06-22-2021 End: 06-22-2021 Patient encounter procedure Hever Santiago MOBILE LAB TECHNICIAN.LABOR SPECIALIST Work Phone: [facility] Comment on above: Essential hypertensi on (Primary Dx); Pure hypercholesterolemia; Acquired hypothyroidism; Adjustment disorder with mixed anxiety and depressed mood; Peripheral polyneuropathy Start: 06-09-2021 Refill Paddy quintana MD Work Phone: [facility] Comment on above: Refill Request Start: 05-20-2021 Refill Paddy quintana MD Work Phone: [facility] Comment on above: Refill Request Procedures Date Procedure Procedure Detail Performing Clinician Start: 03-27-2024 Noninvasive ear/pulse oximetry multiple deter Raina Huynh MD Work Phone: Start: 03-05-2024 Brncdilat rspse spmtry pre&post-brncdilat admn Raina Huynh MD Work Phone: Start: 03-15-2023 SARS-CoV-2, Influenza & RSV (PCR) Start: 03-15-2023 Plain chest X-ray Start: 09-22-2022 Radiography of ankle Start: 09-22-2022 X-ray of both feet Start: 09-22-2022 Plain X-ray of tibia and fibula Start: 05-22-2022 Radiologic exam chest 2 views Paddy Zaidi MD Work Phone: Start: 05-21-2022 Blood count complete automated Paddy Zaidi MD Work Phone: Start: 05-21-2022 Lipid panel Paddy Zaidi MD Work Phone: Start: 05-21-2022 Ecg routine ecg w/least 12 lds i&r only Paddy Zaidi MD Work Phone: Start: 12-18-2021 Plain chest X-ray Dr. Shayne Zaidi Work Phone: Start: 12-17-[address] Shayne rosenthal Work Phone: Start: 12-16-2021 History of placement of stent for coronary artery disease History of coronary artery stent placement Dr. Shayne Zaidi Work Phone: Start: 12-15-2021 CT angiography of chest with contrast Dr. Shayne Zaidi Work Phone: Start: 12-14-2021 Plain chest X-ray Dr. Shayne Zaidi Work Phone: Legionella pneumophi la antigen assay Dr. Shayne Zaidi Work Phone: Streptococcus pneumo niae Antigen (M Dr. Shayne Zaidi Work Phone: Viral antigen assay Dr. Capo Zaidi Work Phone: Plan of Treatment Date Care Activity Detail Author Start: 06-30-2027 [facility] Start: 06-05-2026 [facility] Start: 06-29-2025 Hepatitis B surface antibody level LDL Cholesterol [facility] Start: 05-21-2025 DIABETES SCREEN DIABETES SCREEN [facility] Start: 05-21-2025 [facility] Start: 11-16-2024 End: 11-16-2024 Patient encounter procedure 11/16/2024 10:00 AM EDT Office Visit Cardiology [address] [place] [address] [place] [address] [place], [place] [id number] Dx: Paroxysmal atrial fibrillation (HCC) [I48.0] Cardiology Comment on above: Dx: Paroxysmal atria l fibrillation (HCC) [I48.0] Start: 10-16-2024 End: 10-16-2024 Patient encounter procedure 10/16/2024 3:20 PM EDT Office Visit [address] [place] [address] Paddy Zaidi MD [address] [place] [address] [place] [address] follow up [facility] Comment on above: follow up Start: 10-08-2024 Influenza vaccination Influenza Vacc ine (#1) [facility] Start: 10-02-2024 End: 10-02-2024 Patient encounter procedure 10/02/2024 2:00 PM EDT Office Visit Pulmonary Medicine [address] [place], [place] [address] Flavia Smith APRN.LABOR SPECIALIST [address] [place] [address] 3 MTH F/U / PT DECLINED EARLIER APPOINTMENT Pulmonary Medicine Comment on above: 3 MTH F/U / PT DECLI LUCILA EARLIER APPOINTMENT Start: 09-14-2024 DIABETES SCREEN DIABETES SCREEN [facility] Start: 07-13-2024 End: 07-13-2024 Patient encounter procedure 07/13/2024 4:20 PM EDT Office Visit [facility] [address] [facility] [place], [place] [id number] Paddy Zaidi MD [address] [place] [id number] Foot issues follow up [facility] Comment on above: Foot issues follow u p Start: 06-26-2024 End: 06-26-2024 Patient encounter procedure Pulmonary Medicine Comment on above: 3 MTH F/U Start: 06-05-2024 Hepatitis B surface antibody level LDL Cholesterol [facility] Start: 03-27-2024 End: 03-27-2024 Patient encounter procedure Pulmonary Medicine Comment on above: f/up Pneumonia of left lo wer lobe due to infectious organism [J18.9]; Lung nodules [R91.8] Start: 03-27-2024 End: 03-27-2024 ambulatory 03/27/2024 1:30 PM EST Procedure PULM LAB [facility] [address] [place] [address] Wstr, Pulm Lab [facility] [address] [place] [address] 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] PULM LAB [facility] Comment on above: 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] Start: 03-26-2024 End: 03-26-2024 Patient encounter procedure 03/26/2024 3:00 PM EST Office Visit [address] [place], [place] [phone] Paddy Zaidi MD [address] [facility] [address] [place], [place] [id number] follow up [facility] Comment on above: follow up Start: 03-21-2024 End: 03-21-2024 Patient encounter procedure Pulmonary Medicine Comment on above: f/up Pneumonia of left lo wer lobe due to infectious organism [J18.9]; Lung nodules [R91.8] Start: 03-21-2024 End: 03-21-2024 ambulatory 03/21/2024 1:30 PM EST Procedure [facility] [address] [place] [address] Wstr, Pul Lab [facility] [address] [place] [address], [place] [address] 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] PUL LAB [facility] Comment on above: 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] Start: 03-14-2024 End: 03-14-2024 Patient encounter procedure Cat Scan Comment on above: Pneumonia of left lo wer lobe due to infectious organism [J18.9]; Lung nodules [R91.8] f/up Start: 03-14-2024 End: 03-14-2024 ambulatory 03/14/2024 12:30 PM EST Procedure PUL LAB [facility] [address] [place] [address] Wstr, Pul Lab [facility] [address] [place] [address] 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] [facility] Comment on above: 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] Start: 02-21-2024 End: 05-22-2024 CBC panel - Blood by Automated count COMPLETE BLOOD COUNT Lab Routine Paroxysmal atrial fibrillation (HCC) Expected: 02/21/2024, Expires: 05/22/2024 [facility] Work Phone: Comment on above: Expected: 02/21/2024 , Expires: 05/22/2024 Start: 02-14-2024 End: 05-15-2024 Basic metabolic 2000 panel - Serum or Plasma BASIC METABOLIC PANEL Lab Routine Paroxysmal atrial fibrillation (HCC) Expected: 02/14/2024, Expires: 05/15/2024 [facility] Comment on above: Expected: 02/14/2024 , Expires: 05/15/2024 Start: 02-14-2024 End: 02-14-2024 Patient encounter procedure 02/14/2024 2:00 PM EST Office Visit Family Practice [address] [place], [place] [phone] Hever Martínez APRN.LABOR SPECIALIST [address] [place] [phone] hosptial f/u breathing cold coughing touch of pneumonia Family [facility] Comment on above: hosptial f/u breathi ng cold coughing touch of pneumonia Start: 02-08-2024 Advance Directive Discussion Advance Directive Discussion [facility] Start: 02-08-2024 Medicare Advantage A nnual Wellness Visit Medicare Advantage Annual Wellness Visit [facility] Start: 12-18-2023 DIABETES SCREEN DIABETES SCREEN [facility] Start: 10-09-2023 Covid-19 Vaccine ( season) Covid-19 Vaccine ( season) [facility] Start: 10-09-2023 Influenza vaccination [facility] Start: 07-08-2023 End: 07-08-2023 Patient encounter procedure 07/08/2023 3:40 PM EDT Office Visit Family Practice [address] [facility] [address] [place], [place] [id number] Paddy Zaidi MD [address] [facility] [address] [place] [phone] 1 month follow up [facility] Comment on above: 1 month follow up Start: 06-23-2023 End: 06-23-2023 Patient encounter procedure 06/23/2023 3:20 PM EDT Office Visit [facility] [address] [place], [place] [id number] Paddy Zaidi MD [address] [facility] [address] [place], [place] [id number] MEDICARE WELLNESS [id number] [facility] Comment on above: MEDICARE WELLNESS Z0 0.00 Start: 06-16-2023 End: 06-16-2023 ambulatory 06/16/2023 2:15 PM EDT Procedure PULM LAB [facility] [address] [place] [address] Wstr, Pulm Lab [facility] [address] [place] [address] 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]; Hypoxemia [R09.02] PULM LAB [facility] Comment on above: 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) [I25.729]; Hypoxemia [R09.02] Start: 06-07-2023 End: 06-07-2023 Patient encounter procedure 06/07/2023 4:20 PM EDT Office Visit [facility] [address] [facility] [facility] [address] [place], [place] [phone] Paddy Zaidi MD [address] [facility] [address] [place], [place] [id number] anxiety, [facility] Comment on above: anxiety, Start: 05-27-2023 End: 08-26-2023 CBC panel - Blood by Automated count COMPLETE BLOOD COUNT Lab Routine Essential hypertension Mixed hyperlipidemia Peripheral polyneuropathy Expected: 05/27/2023, Expires: 08/26/2023 [facility] Comment on above: Expected: 05/27/2023 , Expires: 08/26/2023 Start: 05-27-2023 End: 08-26-2023 Comprehensive metabolic 2000 panel - Serum or Plasma COMPREHENSIVE METABOLIC PANEL Lab Routine Essential hypertension Expected: 05/27/2023, Expires: 08/26/2023 [facility] Work Phone: Comment on above: Expected: 05/27/2023 , Expires: 08/26/2023 Start: 05-27-2023 End: 08-26-2023 Hemoglobin A1c in Blood HEMOGLOBIN A1C Lab Routine Peripheral polyneuropathy Expected: 05/27/2023, Expires: 08/26/2023 [facility] Comment on above: Expected: 05/27/2023 , Expires: 08/26/2023 Start: 05-27-2023 End: 08-26-2023 Lipid 1996 panel - Serum or Plasma LIPID PANEL BASIC Lab Routine Mixed hyperlipidemia Expected: 05/27/2023, Expires: 08/26/2023 [facility] Comment on above: Expected: 05/27/2023 , Expires: 08/26/2023 Start: 05-27-2023 End: 08-26-2023 Thyrotropin [Units/volume] in Serum or Plasma THYROID STIMULATING HORMONE Lab Routine Hypothyroidism, unspecified type Expected: 05/27/2023, Expires: 08/26/2023 [facility] Comment on above: Expected: 05/27/2023 , Expires: 08/26/2023 Start: 05-22-2023 Hepatitis B surface antibody level LDL CHOLESTEROL [facility] Start: 03-15-2023 [facility] Start: 03-15-2023 Inhalation therapy procedure [facility] Start: 02-07-2023 Advance Directive Discussion Advance Directive Discussion [facility] Start: 12-23-2022 SHINGRIX VACCINE (1 of 2) SMALL GRIX VACCINE (1 of 2) [facility] Comment on above: Postponed from 10/05 (Declined at this time) Start: 12-23-2022 Urine microalbumin profile DTAP,TDAP,TD (1 - Tdap) [facility] Comment on above: Postponed from 10/05 (Declined at this time) Start: 10-08-2022 Covid-19 Vaccine () Covid-19 Vaccine () [facility] Start: 10-08-2022 Influenza vaccination C [facility] Start: 05-21-2022 End: 07-21-2022 Natriuretic peptide.B prohormone N-Terminal [Mass/volume] in Serum or Plasma NT PRO BNP Lab Routine 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) SOB (shortness of breath) Expected: 05/21/2022, Expires: 07/21/2022 [facility] Work Phone: Comment on above: Expected: 05/21/2022 , Expires: 07/21/2022 Start: 03-30-2022 End: 05-30-2022 CBC panel - Blood by Automated count CBC Lab Routine Medication management Expected: 03/30/2022, Expires: 05/30/2022 [facility] Work Phone: Comment on above: Expected: 03/30/2022 , Expires: 05/30/2022 Start: 03-30-2022 End: 05-30-2022 SCHEDULE LAB TESTING SCHEDULE LAB TESTING Lab Routine Expected: 03/30/2022, Expires: 05/30/2022 [facility] Work Phone: Comment on above: Expected: 03/30/2022 , Expires: 05/30/2022 Start: 03-30-2022 End: 05-30-2022 Thyrotropin [Units/volume] in Serum or Plasma TSH BLD Lab Routine Acquired hypothyroidism Expected: 03/30/2022, Expires: 05/30/2022 [facility] Work Phone: Comment on above: Expected: 03/30/2022 , Expires: 05/30/2022 Start: 02-07-2022 ADVANCE DIRECTIVE DISCUSSION ADVANCE DIRECTIVE DISCUSSION [facility] Start: 12-23-2021 Patient referral [facility] Work Phone: Start: 12-18-2021 [facility] Work [facility] Start: 12-18-2021 [facility] Work Phone: Start: 12-17-2021 Referral to occupati onal therapist [facility] Work Phone: Start: 12-17-2021 Referral to service [facility] Work Phone: Start: 12-17-2021 Hepatitis B surface antibody level LDL CHOLESTEROL [facility] Start: 12-16-2021 End: 12-17-2021 [facility] Work Phone: Start: 12-16-2021 Cardiac monitoring [facility] Work Phone: Start: 12-16-2021 Cardiac rehabilitati on - phase 1 [facility] Work Phone: Start: 12-16-2021 Cardiac rehabilitati on - phase 2 [facility] Work Phone: Start: 12-16-2021 Notification of physician [facility] Work Phone: Start: 12-16-2021 Patient discharge [facility] Work Phone: Start: 12-16-2021 Systemic arterial pressure monitoring [facility] Work Phone: Start: 12-16-2021 Taking patient vital signs [facility] Work Phone: Start: 12-16-2021 Vascular disease ris k assessment [facility] Work Phone: Start: 12-16-2021 Vital signs measurements [facility] Work Phone: Start: 12-15-2021 Care planning and pr oblem solving actions [facility] Work Phone: Start: 12-15-2021 Patient referral [facility] Work Phone: Start: 12-15-2021 Catheterization of vein [facility] Work Phone: Start: 12-15-2021 Medication not administered [facility] Work Phone: Start: 12-15-2021 [facility] Work Phone: Start: 12-14-2021 Care planning and pr oblem solving actions [facility] Work Phone: Start: 12-14-2021 Ambulation without limitation [facility] Work Phone: Start: 12-14-2021 Assessment of risk o f venous thromboembolism [facility] Work Phone: Start: 12-14-2021 Catheterization of vein [facility] Work Phone: Start: 12-14-2021 Chart related administrative procedure [facility] Work Phone: Start: 12-14-2021 Elevation of head of bed [facility] Work Phone: Start: 12-14-2021 Insertion of cathete r into peripheral vein [facility] Work Phone: Start: 12-14-2021 Measuring intake and output [facility] Work Phone: Start: 12-14-2021 Medication education [facility] Work Phone: Start: 12-14-2021 Oxygen therapy [facility] Work Phone: Start: 12-14-2021 Patient education [facility] Work Phone: Start: 12-14-2021 Providing care accor ding to standard [facility] Work Phone: Start: 12-14-2021 Referral to drawbench operator helper [facility] Work Phone: Start: 12-14-2021 [facility] Work Phone: Start: 12-14-2021 Troponin I measurement [facility] Work Phone: Start: 12-14-2021 Bacteria identified in Sputum by Culture [facility] Work Phone: Start: 12-14-2021 Legionella pneumophi la Ag [Presence] in Urine [facility] Work Phone: Start: 12-14-2021 Streptococcus pneumo niae antigen assay [facility] Work Phone: Start: 12-14-2021 [facility] Work Phone: Start: 12-14-2021 End: 12-14-2021 Following clinical pathway protocol [facility] Work Phone: Start: 12-14-2021 Verification routine Wo racheal [facility] Work Phone: Start: 12-14-2021 Admission procedure Sims ster [facility] Work Phone: Start: 12-14-2021 [facility] Work [facility]: Start: 10-08-2021 Influenza vaccination INFLUENZA (#1) [facility] Start: 09-10-2021 End: 11-10-2021 Basic metabolic 2000 panel - Serum or Plasma BASIC METABOLIC PNL Lab Routine Essential hypertension Hypokalemia Expected: 09/10/2021, Expires: 11/10/2021 [facility] Work Phone: Comment on above: Expected: 09/10/2021 , Expires: 11/10/2021 Start: 02-07-2021 ADVANCE DIRECTIVE DISCUSSION ADVANCE DIRECTIVE DISCUSSION [facility] Start: 08-25-2020 COVID-19 VACCINE (3 - Booster for Moderna series) COVID-19 VACCINE (3 - Booster for Moderna series) [facility] Start: 05-23-2020 COVID-19 VACCINE (3 - Booster for Moderna series) COVID-19 VACCINE (3 - Booster for Moderna series) [facility] Start: 05-23-2020 COVID-19 VACCINE (3 - Moderna series) COVID-19 VACCINE (3 - Moderna series) [facility] Start: 10-05-2014 RSV Vaccine (1 - 1-d ose 75+ series) RSV Vaccine (1 - 1-dose 75+ series) [facility] Start: 1999 RSV Vaccine (1 - 1-d ose 60+ series) RSV Vaccine (1 - 1-dose 60+ series) [facility] Start: 10-05-1989 SHINGRIX VACCINE (1 of 2) SMALL GRIX VACCINE (1 of 2) [facility] Start: 10-05-1958 Urine microalbumin profile [facility] Start: 10-05-1957 SPIROMETRY SPIROMETRY [facility] End: 04-04-2025 CT Chest WO contrast CT CHEST WO IVCON Radiology Routine Pneumonia of left lower lobe due to infectious organism Lung nodules 1 Occurrences starting 03/05/2024 until 04/04/2025 [facility] Work Phone: Comment on above: 1 Occurrences starti ng 03/05/2024 until 04/04/2025 CT Chest WO contrast CT CHEST WO IVCON Radiology Routine Pneumonia of left lower lobe due to infectious organism Lung nodules 03/27/2024 3:54 PM EST [facility] Work Phone: ECG COMPLETE ECG COMPLETE ECG Routine 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) Paroxysmal atrial fibrillation (HCC) 05/21/2022 3:54 PM EDT [facility] Work Phone: OXIMETRY - NOCTURNAL OXIMETRY - NOCTURNAL Procedures Routine Hypoxia Ordered: 03/27/2024 [facility] Work Phone: Comment on above: Ordered: 03/27/2024 End: 04-04-2025 OXIMETRY WITH AMBULATION OXIMETRY WITH AMBULATION PFT Routine Stage 3 severe COPD by GOLD classification ([facility]) 1 Occurrences starting 03/05/2024 until 04/04/2025 [facility] Comment on above: 1 Occurrences starti ng 03/05/2024 until 04/04/2025 Patient Education [facility] Work Phone: Patient referral [facility] Work Phone: End: 02-15-2025 PT panel - Platelet poor plasma by Coagulation assay PROTHROMBIN TIME Lab Routine Chronic atrial fibrillation (HCC) 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 Once per week for 52 Occurrences starting 02/16/2024 until 02/15/2025 [facility] Work Phone: Comment on above: Once per week for 52 Occurrences starting 02/16/2024 until 02/15/2025 End: 06-20-2023 Radiologic exam chest 2 views XR CHEST 2V FRONTAL/LAT Radiology Routine 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) Paroxysmal atrial fibrillation (HCC) SOB (shortness of breath) 1 Occurrences starting 05/21/2022 until 06/20/2023 [facility] Work Phone: Comment on above: 1 Occurrences starti ng 05/21/2022 until 06/20/2023 Radiologic exam ches t 2 views XR CHEST 2V FRONTAL/LAT Radiology Routine Pneumonia of right middle lobe due to infectious organism Ordered: 06/02/2022 [facility] Work Phone: Comment on above: Ordered: 06/02/2022 End: 07-06-2024 SIX MINUTE WALK SIX MINUTE WALK PFT Routine 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) Hypoxemia 1 Occurrences starting 06/07/2023 until 07/06/2024 [facility] Comment on above: 1 Occurrences starti ng 06/07/2023 until 07/06/2024 Troponin I measurement [facility] Work Phone: End: 07-06-2024 XR Chest PA and Lateral XR CHEST 2V FRONTAL/LAT Radiology Routine 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) SOB (shortness of breath) 1 Occurrences starting 06/07/2023 until 07/06/2024 [facility] Work Phone: Comment on above: 1 Occurrences starti ng 06/07/2023 until 07/06/2024 [facility] Immunizations Immunization Date Immunization Notes Care Provider Elise hernandez 02-14-2024 influenza, high dose seasonal, preservative-free Hever Martínez APRN.CNP Work Phone: [facility] 02-14-2024 influenza virus vacc ine, unspecified formulation Paddy Zaidi MD Work Phone: [facility] 12-17-2020 influenza, high-dose , quadrivalent vaccine (FLUZONE HIGH DOSE QUADRIVALENT) Paddy Zaidi MD Work Phone: [facility] 12-17-2020 influenza virus vacc ine, unspecified formulation Paddy Zaidi MD Work Phone: [facility] 03-28-2020 COVID-19 vaccine, fu ll dose (MODERNA) Paddy Zaidi MD Work Phone: [facility] 02-29-2020 COVID-19 vaccine, fu ll dose (MODERNA) Paddy Zaidi MD Work Phone: [facility] 07-31-2019 pneumococcal polysaccharide vaccine, 23 valent Paddy Zaidi MD Work Phone: [facility] 07-31-2019 pneumococcal vaccine , unspecified formulation Dr. Shayne Zaidi Work Phone: [facility] 01-12-[address] Shayne Zaidi Work Phone: [facility] 01-12-2018 influenza, high dose seasonal, preservative-free Paddy Zaidi MD Work Phone: [facility] 01-12-2018 influenza, seasonal, injectable Paddy Zaidi MD Work Phone: [facility] 01-12-2018 influenza, seasonal, injectable, preservative free Paddy Zaidi MD Work Phone: [facility] 01-12-2018 pneumococcal polysaccharide vaccine, 23 valent Paddy Zaidi MD Work Phone: [facility] 01-12-2018 pneumococcal vaccine , unspecified formulation Paddy Zaidi MD Work Phone: [facility] 03-31-2017 pneumococcal conjuga te vaccine, 13 valent Paddy Zaidi MD Work Phone: [facility] 12-08-[address] Shayne Zaidi Work Phone: [facility] 12-08-2016 influenza, seasonal, injectable Paddy Zaidi MD Work Phone: [facility] 12-08-2016 influenza, seasonal, injectable, preservative free Paddy Zaidi MD Work Phone: [facility] 11-27-2016 influenza, high dose seasonal, preservative-free Paddy Zaidi MD Work Phone: [facility] Work Phone: 12-01-2013 influenza virus vacc ine, whole virus Paddy Zaidi MD Work Phone: [facility] 11-23-2012 influenza virus vacc ine, unspecified formulation Paddy Zaidi MD Work Phone: [facility] 01-16-2010 pneumococcal polysaccharide vaccine, 23 valent Paddy Zaidi MD Work Phone: [facility] 12-09-2009 influenza virus vacc ine, unspecified formulation Paddy Zaidi MD Work Phone: [facility] 12-23-2008 influenza virus vacc ine, unspecified formulation Paddy Zaidi MD Work Phone: [facility] Work Phone: Payers Date Payer Category Payer Self-pay [id number] 2021 Medicare [id number] 2021 Medicare AETNA MEDICARE A ETNA MEDICARE PPO [id number] 2021-Present [phone] [address] [place] [address] PP [id number] 2021 Medicare (Managed Care) [place] [id number] 2014 Private Health Insurance 101 [id number] 2009 Medicare AETNA MEDICARE A ETNA MEDICARE PPO [id number] 2009-Present [phone] [address] [place] [address] PPO [id number] Medicare MEDICARE PART A B [id number] Unknown [id number] Unknown [id number] Social History Date Type Detail Facility Start: 02-01-2017 End: 03-05-2024 Tobacco smoking status NHIS Ex-smoker [facility] Start: 10-17-1967 End: 10-16-1992 History of tobacco use Current smoker [facility] Start: 10-17-1967 End: 10-16-1992 History of tobacco use Cigarette Smoker [facility] Start: 12-17-2020 End: 07-13-2024 Alcohol intake Current non-drinker of alcohol (finding) [facility] Start: 1940 Sex Assigned At Not on file C [facility] Start: 06-12-2021 End: 12-23-2021 Exposure to SARS-CoV-2 (event) Not sure [facility] Start: 02-01-2017 End: 07-20-2022 Cigarettes smoked current (pack per day) - Reported 2 [facility] Start: 02-01-2017 End: 03-05-2024 Tobacco use and exposure Smokeless tobacco non-user [facility] Start: 12-14-2021 End: 03-15-2023 Tobacco smoking status NMIS Unknown if ever smoked [facility] Start: 07-28-2019 None [facility] Start: 07-28-2019 Spouse/ Signif icant Other [facility] Start: 07-28-2019 Non-smoker [facility] Start: 1940 Sex Assigned At Male W [facility] Start: 06-02-2022 End: 07-20-2022 Tobacco use panel [facility] Adult Depression Screening Assessment 0 [facility] Medical Equipment Procedure Code Equipment Code Equipment Origin al Text Equipment Identifier Dates 6.5MM CANNULATED SCREW FDA Start: 09-12-2017 ASNIS WASHER FDA Start: 09-12-2017 127 Neck Angle H ip Stem FDA Start: 07-24-2018 Ceramic V40 Fem Head FDA Star t: 07-24-2018 Clusterhole Acetabular Shell FDA Start: 07-24-2018 Liner - Cementless FDA Start: 07-24-2018 X3 Insert for MDM FDA Start: 07-24-2018 6.5MM CANNULATED SCREW FDA Start: 09-12-2017 ASNIS WASHER FDA Start: 09-12-2017 127 Neck Angle H ip Stem FDA Start: 07-24-2018 Ceramic V40 Fem Head FDA Star t: 07-24-2018 Clusterhole Acetabular Shell FDA Start: 07-24-2018 Liner - Cementless FDA Start: 07-24-2018 X3 Insert for MDM FDA Start: 07-24-2018 ([id number]) Drug-eluting cor onary artery stent, bioabsorbable-polymer -coated [id number] FDA Start: 12-16-2021 6.5MM CANNULATED SCREW FDA Start: 09-12-2017 ASNIS WASHER FDA Start: 09-12-2017 127 Neck Angle H ip Stem FDA Start: 07-24-2018 Ceramic V40 Fem Head FDA Star t: 07-24-2018 Clusterhole Acetabular Shell FDA Start: 07-24-2018 Liner - Cementless FDA Start: 07-24-2018 X3 Insert for MDM FDA Start: 07-24-2018 6.5MM CANNULATED SCREW FDA Start: 09-12-2017 ASNIS WASHER FDA Start: 09-12-2017 127 Neck Angle H ip Stem FDA Start: 07-24-2018 Ceramic V40 Fem Head FDA Star t: 07-24-2018 Clusterhole Acetabular Shell FDA Start: 07-24-2018 Liner - Cementless FDA Start: 07-24-2018 X3 Insert for MDM FDA Start: 07-24-2018 6.5MM CANNULATED SCREW FDA Start: 09-12-2017 ASNIS WASHER FDA Start: 09-12-2017 127 Neck Angle H ip Stem FDA Start: 07-24-2018 Ceramic V40 Fem Head FDA Star t: 07-24-2018 Clusterhole Acetabular Shell FDA Start: 07-24-2018 Liner - Cementless FDA Start: 07-24-2018 X3 Insert for MDM FDA Start: 07-24-2018 Goals Date Patient Goal Desired Activity /State Functional Status Date Assessment Result Facility 12-18-2021 Functional status Chair [facility] Work Phone: 07-29-2014 Are you deaf, or do you have serious difficulty hearing No 07/29/2014 10:56 AM EDT Sindhu Phelps Ma No [facility] 07-29-2014 Are you blind, or do you have serious difficulty seeing, even when wearing glasses No 07/29/2014 10:56 AM EDT Sindhu Phelps Ma No [facility] 07-29-2014 Do you have serious difficulty walking or climbing stairs No 07/29/2014 10:56 AM EDT Sindhu Phelps Ma No [facility] 07-29-2014 Do you have difficul ty dressing or bathing No 07/29/2014 10:56 AM EDT Sindhu Phelps Ma No [facility] 07-29-2014 Because of a physica l, mental, or emotional condition, do you have difficulty doing errands alone such as visiting a physician's office or shopping No 07/29/2014 10:56 AM EDT Sindhu Phelps Ma No [facility] Mental Status Date Assessment Result Facility 12-18-2021 Cognitive function Voice/Name [facility] Work Phone: 07-29-2014 Because of a physica l, mental, or emotional condition, do you have serious difficulty concentrating, remembering, or making decisions No 07/29/2014 10:56 AM EDT Sindhu Phelps Ma No [facility] Clinical Notes 05-21-2021 to 09-08-2024 Telephone Encounter - Yudelka Harris RN - 09/08/2024 2:55 PM EDTTelephone Encounter - Yudelka Harris RN - 09/08/2024 2:55 PM EDTTelephone Encounter - Shwetha Kendrick - 09/05/2024 4:33 PM EDT Note Date & Type Note Facility 09-08-2024 Telephone encounter Note Patient's caregiver called requesting a refill of Lorazepam. Caregiver Abbie states he is out and he is requesting more for a panic attack. Patient is not with caregiver now but she does admit he is having chest tightness. She states this is not new but I did inform her we will need to do an assessment and would need to have him present. She states she will call back when she returns home to him. I did inform her not to hesitate to seek emergency treatment and she verbalized understanding. [facility] 09-08-2024 Miscellaneous Notes Patient's caregiver called requesting a refill of Lorazepam. Caregiver Abbie states he is out and he is requesting more for a panic attack. Patient is not with caregiver now but she does admit he is having chest tightness. She states this is not new but I did inform her we will need to do an assessment and would need to have him present. She states she will call back when she returns home to him. I did inform her not to hesitate to seek emergency treatment and she verbalized understanding. documented in this encounter [facility] 09-05-2024 Telephone encounter Note Lvm and letter Provider only at [place] now [facility] 09-05-2024 Miscellaneous Notes Lvm and letter Provider only at [place] now documented in this encounter [facility] 08-14-2024 Telephone encounter Note Pharmacy verified in Epic Patient has been identified by name and date of : Yes Patient aware RX will be sent to pharmacy. No need to notify patient. Patient phones for refill(s): Requested Prescriptions Pending Prescriptions Disp Refills levothyroxine (SYNTHROID) 50 mcg tablet [Pharmacy Med Name: Levothyroxine Sodium 50 MCG Oral Tablet] 90 tablet 0 Sig: Take 1 tablet by mouth once daily Date of last office visit : 07/13/2024 Date of next office visit : 10/16/2024 Last 2 Encounter Wt Readings: Date: Wt: 03/05/2024 96.2 kg (212 lb) 03/05/2024 96.2 kg (212 lb) Not applicable Please advise. Vivi Shaffer MA [facility] 08-14-2024 Miscellaneous Notes Pharmacy verified in Epic Patient has been identified by name and date of : Yes Patient aware RX will be sent to pharmacy. No need to notify patient. Patient phones for refill(s): Requested Prescriptions Pending Prescriptions Disp Refills levothyroxine (SYNTHROID) 50 mcg tablet [Pharmacy Med Name: Levothyroxine Sodium 50 MCG Oral Tablet] 90 tablet 0 Sig: Take 1 tablet by mouth once daily Date of last office visit : 07/13/2024 Date of next office visit : 10/16/2024 Last 2 Encounter Wt Readings: Date: Wt: 03/05/2024 96.2 kg (212 lb) 03/05/2024 96.2 kg (212 lb) Not applicable Please advise. Vivi Shaffer MA documented in this encounter [facility] 07-13-2024 Note HNO ID: [id number] Author: PADDY ZAIDI MD Service: ? Author Type: Physician Type: Progress Notes Filed: 07/13/2024 17:45 Note Text: Subjective Adrian Pedersen is an 83-year-old male with a history of anxiety, presenting with dyspnea, lower extremity edema, and anxiety attacks, accompanied by his caregiver, Hui Ray, who is providing additional history. Dyspnea atherosclerotic heart disease: Pending electophys eval in [place] in November. 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 BP variable - Dyspnea and easy fatigability; primarily sedentary, only getting up to use the restroom. - Symptoms have worsened since knee replacement. - Uses supplemental oxygen intermittently; has a large oxygen tank at home. - Uses two inhalers, which provide some relief. - Denies angina. He does get a different type pain described below Lower Extremity Edema: - Bilateral lower extremity edema with associated numbness and discoloration (red and purple). - Edema has decreased recently. - Denies running out of medications. - Reports sores on toes that are slow to heal. He has thickened nails. Purple skin Anxiety: - Frequent anxiety attacks, described as a feeling of chest pressure and panic. He does not attribute this to heart, more due to the shortnes of breath - Episodes often occur in the evening. - Associated symptoms include nausea, diaphoresis, and weakness. - History of anxiety, mainly managed with various antiepressents and sporadic use of lorazepam. - Currently taking Paxil. - Reports increased anxiety since a recent fall resulting in a foot and ankle fracture. - Denies using nitroglycerin for episodes. Constitutional: (+) fatigue, (+) generalized weakness Cardiovascular: (+) chest pressure, (+) foot swelling, (-) chest pain Respiratory: (+) shortness of breath Gastrointestinal: (+) nausea Skin: (+) diaphoresis, (+) foot discoloration Neurological: (+) foot numbness Psychiatric: (+) panic attacks, (+) anxiety, (+) nervousness Objective Blood pressure 125/76, pulse 98. General: No acute distress. CV: Feet with erythema and cyanosis. Resp: MSK/Ext: Edema of feet, neuropathy of feet. Labs: - Blood work: No abnormalities reported Assessment AND Plan 1. Oxygen dependent (Z99.81) - Intermittent oxygen use; has a large oxygen tank at home. - Continue current oxygen therapy as needed. 2. 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 Atherosclerosis of [place]ahu[place] coronary artery of cahu[place] heart without angina pectoris (I25.10) - Referral to cardiology in [place] initiated for further evaluation and management. - Advised to use nitroglycerin as needed for chest discomfort. 4. Anxiety attack (F41.0) 5. Adjustment disorder with mixed anxiety and depressed mood (F43.23) - Experiencing frequent panic attacks and anxiety. - Prescribed lorazepam 0.5 mg, 10 tablets, to be taken as needed for acute anxiety episodes; not for daily use. - Continue current Paxil regimen. 6. Leg swelling (M79.89) 7. PAD (peripheral artery disease) (I73.9) - Edema with associated numbness and discoloration. - Referral to podiatry for further evaluation and management. 8. Acquired hypothyroidism (E03.9) Lab Stable on current med Continue 9. Pure hypercholesterolemia (E78.00) Stable on med. Continue 10. Idiopathic peripheral neuropathy (G60.9) - Increasing symptoms of neuropathy. - Increased gabapentin dosage to 300 mg twice daily. - Prescription sent to pharmacy. Recording using [employer] software for draft documentation of the visit was discussed with the patient/authorized marketing representative; all questions welcomed and answered. Patient/authorized marketing representative agreed to proceed Paddy Zaidi MD [facility] 07-13-2024 History of Present illness Narrative Subjective Adrian Pedersen is an 83-year-old male with a history of anxiety, presenting with dyspnea, lower extremity edema, and anxiety attacks, accompanied by his caregiver, Hui Ray, who is providing additional history. Dyspnea atherosclerotic heart disease: Pending electophys eval in [place] in November. 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 BP variable - Dyspnea and easy fatigability; primarily sedentary, only getting up to use the restroom. - Symptoms have worsened since knee replacement. - Uses supplemental oxygen intermittently; has a large oxygen tank at home. - Uses two inhalers, which provide some relief. - Denies angina. He does get a different type pain described below Lower Extremity Edema: - Bilateral lower extremity edema with associated numbness and discoloration (red and purple). - Edema has decreased recently. - Denies running out of medications. - Reports sores on toes that are slow to heal. He has thickened nails. Purple skin Anxiety: - Frequent anxiety attacks, described as a feeling of chest pressure and panic. He does not attribute this to heart, more due to the shortnes of breath - Episodes often occur in the evening. - Associated symptoms include nausea, diaphoresis, and weakness. - History of anxiety, mainly managed with various antiepressents and sporadic use of lorazepam. - Currently taking Paxil. - Reports increased anxiety since a recent fall resulting in a foot and ankle fracture. - Denies using nitroglycerin for episodes. Constitutional: (+) fatigue, (+) generalized weakness Cardiovascular: (+) chest pressure, (+) foot swelling, (-) chest pain Respiratory: (+) shortness of breath Gastrointestinal: (+) nausea Skin: (+) diaphoresis, (+) foot discoloration Neurological: (+) foot numbness Psychiatric: (+) panic attacks, (+) anxiety, (+) nervousness Objective Blood pressure 125/76, pulse 98. General: No acute distress. CV: Feet with erythema and cyanosis. Resp: MSK/Ext: Edema of feet, neuropathy of feet. Labs: - Blood work: No abnormalities reported Assessment & Plan 1. Oxygen dependent (Z99.81) - Intermittent oxygen use; has a large oxygen tank at home. - Continue current oxygen therapy as needed. 2. 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 Atherosclerosis of [place] coronary artery of [place] heart without angina pectoris (I25.10) - Referral to cardiology in [place] initiated for further evaluation and management. - Advised to use nitroglycerin as needed for chest discomfort. 4. Anxiety attack (F41.0) 5. Adjustment disorder with mixed anxiety and depressed mood (F43.23) - Experiencing frequent panic attacks and anxiety. - Prescribed lorazepam 0.5 mg, 10 tablets, to be taken as needed for acute anxiety episodes; not for daily use. - Continue current Paxil regimen. 6. Leg swelling (M79.89) 7. PAD (peripheral artery disease) (I73.9) - Edema with associated numbness and discoloration. - Referral to podiatry for further evaluation and management. 8. Acquired hypothyroidism (E03.9) Lab Stable on current med Continue 9. Pure hypercholesterolemia (E78.00) Stable on med. Continue 10. Idiopathic peripheral neuropathy (G60.9) - Increasing symptoms of neuropathy. - Increased gabapentin dosage to 300 mg twice daily. - Prescription sent to pharmacy. Recording using [employer] software for draft documentation of the visit was discussed with the patient/authorized marketing representative; all questions welcomed and answered. Patient/authorized marketing representative agreed to proceed Paddy Zaidi MD documented in this encounter [facility] 07-13-2024 Telephone encounter Note Review of OSH CT with most recent CT does not show worsening of right hemidiaphragm. Left lower lobe nodule no longer seen. Atelectasis in LLL but no further concern for PNA. Needs to complete overnight oxygen testing. [facility] 07-13-2024 Miscellaneous Notes Review of OSH CT with most recent CT does not show worsening of right hemidiaphragm. Left lower lobe nodule no longer seen. Atelectasis in LLL but no further concern for PNA. Needs to complete overnight oxygen testing. documented in this encounter [facility] 07-13-2024 Telephone encounter Note The following approved medication requests have been transmitted electronically. Requested Prescriptions Signed Prescriptions Disp Refills PARoxetine (PAXIL) 40 mg tablet 90 tablet 0 Sig: Take 1 tablet by mouth once daily Authorizing Provider: PADDY ZAIDI potassium chloride (K-TAB) 10 mEq tablet 180 tablet 0 Sig: TAKE 2 TABLETS BY MOUTH IN THE MORNING Authorizing Provider: PADDY ZAIDI Due for appt. Paddy Zaidi MD [facility] 07-13-2024 Miscellaneous Notes The following approved medication requests have been transmitted electronically. Requested Prescriptions Signed Prescriptions Disp Refills PARoxetine (PAXIL) 40 mg tablet 90 tablet 0 Sig: Take 1 tablet by mouth once daily Authorizing Provider: PADDY ZAIDI potassium chloride (K-TAB) 10 mEq tablet 180 tablet 0 Sig: TAKE 2 TABLETS BY MOUTH IN THE MORNING Authorizing Provider: PADDY AZIDI for appt. Paddy Zaidi MD Prescription Refill Information The patient has been identified by name and date of : Yes Caregiver verified no other encounters exist for this prescription request: Yes Caregiver confirmed with patient/requestor that no other refills are due, in the near future, with this provider at this time: Yes The last office visit in the department: 02/14/24 Does the patient have a future office visit with this provider/department: Yes Requested Prescriptions Pending Prescriptions Disp Refills PARoxetine (PAXIL) 40 mg tablet [Pharmacy Med Name: PARoxetine HCl 40 MG Oral Tablet] 90 tablet 0 Sig: Take 1 tablet by mouth once daily potassium chloride (K-TAB) 10 mEq tablet [Pharmacy Med Name: Potassium Chloride ER 10 MEQ Oral Tablet Extended Release] 180 tablet 0 Sig: TAKE 2 TABLETS BY MOUTH IN THE MORNING Noemy Summers LPN July 13, 2024 1:41 PM documented in this encounter [facility] 07-13-2024 Telephone encounter Note Prescription Refill Information The patient has been identified by name and date of : Yes Caregiver verified no other encounters exist for this prescription request: Yes Caregiver confirmed with patient/requestor that no other refills are due, in the near future, with this provider at this time: Yes The last office visit in the department: 02/14/24 Does the patient have a future office visit with this provider/department: Yes Requested Prescriptions Pending Prescriptions Disp Refills PARoxetine (PAXIL) 40 mg tablet [Pharmacy Med Name: PARoxetine HCl 40 MG Oral Tablet] 90 tablet 0 Sig: Take 1 tablet by mouth once daily potassium chloride (K-TAB) 10 mEq tablet [Pharmacy Med Name: Potassium Chloride ER 10 MEQ Oral Tablet Extended Release] 180 tablet 0 Sig: TAKE 2 TABLETS BY MOUTH IN THE MORNING Noemy Summers LPN July 13, 2024 1:41 PM [facility] 07-12-2024 Telephone encounter Note Prescription Refill Information The patient has been identified by name and date of : Yes Caregiver verified no other encounters exist for this prescription request: Yes Caregiver confirmed with patient/requestor that no other refills are due, in the near future, with this provider at this time: Yes The last office visit in the department: 07/09/2024 Does the patient have a future office visit with this provider/department: Yes 07/13/2024 Requested Prescriptions Pending Prescriptions Disp Refills levothyroxine (SYNTHROID) 50 mcg tablet [Pharmacy Med Name: Levothyroxine Sodium 50 MCG Oral Tablet] 90 tablet 0 Sig: Take 1 tablet by mouth once daily gabapentin (NEURONTIN) 100 mg capsule [Pharmacy Med Name: Gabapentin 100 MG Oral Capsule] 360 capsule 0 Sig: TAKE 2 CAPSULES BY MOUTH TWICE DAILY FOR NEUROPATHY Talia Ann LPN July 12, 2024 11:46 AM [facility] 07-12-2024 Miscellaneous Notes Prescription Refill Information The patient has been identified by name and date of : Yes Caregiver verified no other encounters exist for this prescription request: Yes Caregiver confirmed with patient/requestor that no other refills are due, in the near future, with this provider at this time: Yes The last office visit in the department: 07/09/2024 Does the patient have a future office visit with this provider/department: Yes 07/13/2024 Requested Prescriptions Pending Prescriptions Disp Refills levothyroxine (SYNTHROID) 50 mcg tablet [Pharmacy Med Name: Levothyroxine Sodium 50 MCG Oral Tablet] 90 tablet 0 Sig: Take 1 tablet by mouth once daily gabapentin (NEURONTIN) 100 mg capsule [Pharmacy Med Name: Gabapentin 100 MG Oral Capsule] 360 capsule 0 Sig: TAKE 2 CAPSULES BY MOUTH TWICE DAILY FOR NEUROPATHY Talia Ann LPN July 12, 2024 11:46 AM documented in this encounter [facility] 07-03-2024 Telephone encounter Note Spoke to Hui who said patient is taking coumadin daily - believes it is 1 pill a day but is not with patient/able to check. States she was unaware that INR needed to be completed - has not been monitored. OV tomorrow Would you like to make changes at this time or wait until OV? [facility] 07-03-2024 Miscellaneous Notes Spoke to Hui who said patient is taking coumadin daily - believes it is 1 pill a day but is not with patient/able to check. States she was unaware that INR needed to be completed - has not been monitored. OV tomorrow Would you like to make changes at this time or wait until OV? Called patient's memory care program director Hui and patient's son, no answer at this time. Left voicemail to call the office back. Please advise the patient that his INR (no units) Date Value 06/29/2024 1.2 is very too low/subtherapeutic. INR has not been checked in 3 months. Has someone else been monitoring this? Is he taking coumadin? documented in this encounter [facility] 06-29-2024 Telephone encounter Note Called patient's memory care program director Hui and patient's son, no answer at this time. Left voicemail to call the office back. [facility] 06-29-2024 Telephone encounter Note Please advise the patient that his INR (no units) Date Value 06/29/2024 1.2 is very too low/subtherapeutic. INR has not been checked in 3 months. Has someone else been monitoring this? Is he taking coumadin? [facility] Work Phone: 06-29-2024 Note HNO ID: [id number] Author: FLAVIA SMITH APRN.LABOR SPECIALIST Service: ? Author Type: Nurse Practitioner Type: Progress Notes Filed: 06/29/2024 19:32 Note Text: Pulmonary Medicine Patients name: Arturo Campbell PCP: Paddy Zaidi MD CC: follow-up HPI: Arturo Pedersen is a 83 year old male former [id number] smoker quitting in 1992 with PMH significant for obesity, coronary artery disease s/p CABG and stent, previous stroke, GERD, HLD, prostate cancer s/p radiation, HTN, PAF on AC, central sleep apnea not wearing PAP, chronic hypoxemic respiratory failure. Current inhaled therapy Advair and PRN Albuterol. He presents today for follow-up with his machinist general. YOLANDA 03/2024 with exertional dyspnea, chest tightness and wheezing. Started on Advair at that time. Oximetry with ambulation at that time did not show need for supplemental O2 with exertion. He and his machinist general insist he can't even stand up without being short of breath and that's why he needs O2. Nocturnal oximetry ordered but has not yet been completed. He had a chest CT done after his last visit d/t previous LLL opacity and nodule. It reveals known elevation of right hemidiaphragm but do not have prior images for comparison. LLL opacity looks to be improved. Today, patient reports symptoms are unchanged. He continues to use supplemental O2 despite previous testing. He started using Advair but usually only uses once a day if he remembers. Occasionally notes a cough but not often. Endorses SOB with very minimal activity, frequently feels like he can't breathe. Wheezing on occasion. No fevers, chills, or night sweats. Has had b/l lower extremity edema despite diuretics. He was recently referred to cardiology. No recent hospitalizations or ED visits for respiratory infections. DME: [employer] 2L at night PAST MEDICAL HISTORY Diagnosis Date CABG CAD (coronary artery disease) CABG, stent Central apnea CVA (cerebral infarction) 04/16/2014 Depression GERD (gastroesophageal reflux disease) Neuropathy Other and unspecified hyperlipidemia Prostate cancer (HCC) Unspecified essential hypertension Allergies: Aspirin Unknown Oxycodone Other: See Comments Percodan [Oxycodone* Mental Status Change Medication List Accurate as of June 29, 2024 9:26 AM. If you have any questions, ask your nurse or doctor. CONTINUE taking these medications albuterol HFA 90 mcg/actuation inhaler Commonly known as: PROVENTIL HFA, VENTOLIN HFA Inhale 2 Puffs as instructed every 4 hours as needed for wheezing/shortness of breath. aspirin 81 mg chewable tablet atenolol 50 mg tablet Commonly known as: TENORMIN Take 0.5 tablets by mouth once daily. atorvastatin 40 mg tablet Commonly known as: LIPITOR Take 1 tablet by mouth once daily. doxycycline monohydrate 100 mg capsule Commonly known as: MONODOX fluticasone-salmeterol 250-50 mcg/dose inhaler Commonly known as: ADVAIR DISKUS Inhale 1 Puff as instructed two times a day. RINSE AND GARGLE MOUTH WITH WATER AFTER EACH USE. furosemide 20 mg tablet Commonly known as: LASIX Take 1 tablet by mouth once daily gabapentin 100 mg capsule Commonly known as: NEURONTIN Take 2 capsules by mouth two times a day. For neuropathy levothyroxine 50 mcg tablet Commonly known as: SYNTHROID Take 1 tablet by mouth once daily. nitroglycerin sublingual 0.3 mg SL tablet Commonly known as: NITROQUICK Dissolve 1 tablet under the tongue every 5 minutes as needed. PARoxetine 40 mg tablet Commonly known as: PaxiL Take 1 tablet by mouth once daily. potassium chloride 10 mEq tablet Commonly known as: K-TAB Take 2 tablets by mouth every morning. spironolactone 25 mg tablet Commonly known as: ALDACTONE Take 1 tablet by mouth once daily. warfarin 2.5 mg tablet Commonly known as: COUMADIN Take 1 tablet by mouth once daily. DATA: I personally reviewed and analyzed all labs, radiographs and available pulmonary function testing Oximetry with Ambulation: 03/2024 PFT: 02/2024 Spirometry indicates severe obstruction. Negative bronchodilator response. The diffusing capacity (uncorrected for hemoglobin) is reduced. Review of Systems Constitutional: Negative for activity change, appetite change and unexpected weight change. HENT: Negative for congestion, mouth sores, postnasal drip and sinus pain. Respiratory: Positive for chest tightness, shortness of breath and wheezing. Negative for cough. Cardiovascular: Positive for leg swelling. Negative for palpitations. Neurological: Negative for headaches. BP 108/64 Pulse 69 Resp 18 SpO2 98% Physical Exam Vitals reviewed. Constitutional: General: He is not in acute distress. Appearance: Normal appearance. He is not ill-appearing. Comments: Very [place] HENT: Head: Normocephalic. Nose: No rhinorrhea. Mouth/Throat: Mouth: Mucous membranes are moist. Pharynx: No oropharyngeal exudate. Cardiovascular: (more content not included)... [facility] 06-21-2024 Note HNO ID: [id number] Author: CORRINA FUENTES MA Service: ? Author Type: Makeup Artistry Instructor Type: Progress Notes Filed: 06/21/2024 08:30 Note Text: POPULATION HEALTH NAVIGATION OUTREACH Action/FYI Letter received and sent to be mailed. Navigation Signature: Corrina Fuentes MA June 21, 2024 8:30 AM [facility] 06-20-2024 Note HNO ID: [id number] Author: ANT DIAS MA Service: ? Author Type: Makeup Artistry Instructor Type: Progress Notes Filed: 06/20/2024 08:24 Note Text: POPULATION HEALTH NAVIGATION OUTREACH Action/FYI Patient is on [facility] Outreach List and needs appointment to address : DTaP,Tdap,Td Vaccine(1 - Tdap) Shingrix Vaccine(1 of 2) RSV Vaccine(1 - 1-dose 75+ series) Covid-19 Vaccine( - season) Advance Directive Discussion LDL Cholesterol Patient due for: Medicare Annual Wellness Visit MyChart Active: No, offered activation N/A 2nd Attempt: Attempted to reach patient, voicemail not set up yet, unable to leave message. No mychart available, sent letter. [facility] ([facility]) phone number provided [phone]: Yes via letter Reason for Outreach Value Hub Care Gaps due: Medicare Annual Wellness Visit Patient Contacted: Unable or unnecessary to reach patient: Unable to leave message Letter mailed Navigation Signature: Ant Dias MA June 20, 2024 8:22 AM [facility] 06-19-2024 Telephone encounter Note The following approved medication requests have been transmitted electronically. Requested Prescriptions Signed Prescriptions Disp Refills furosemide (LASIX) 20 mg tablet 30 tablet 0 Sig: Take 1 tablet by mouth once daily Authorizing Provider: PADDY ZAIDI atorvastatin (LIPITOR) 40 mg tablet 90 tablet 3 Sig: Take 1 tablet by mouth once daily. Authorizing Provider: PADDY ZAIDI atenolol (TENORMIN) 50 mg tablet 90 tablet 3 Sig: Take 0.5 tablets by mouth once daily. Authorizing Provider: PADDY ZAIDI spironolactone (ALDACTONE) 25 mg tablet 90 tablet 3 Sig: Take 1 tablet by mouth once daily. Authorizing Provider: PADDY ZAIDI MD [facility] 06-19-2024 Miscellaneous Notes The following approved medication requests have been transmitted electronically. Requested Prescriptions Signed Prescriptions Disp Refills furosemide (LASIX) 20 mg tablet 30 tablet 0 Sig: Take 1 tablet by mouth once daily Authorizing Provider: PADDY ZAIDI atorvastatin (LIPITOR) 40 mg tablet 90 tablet 3 Sig: Take 1 tablet by mouth once daily. Authorizing Provider: PADDY ZAIDI atenolol (TENORMIN) 50 mg tablet 90 tablet 3 Sig: Take 0.5 tablets by mouth once daily. Authorizing Provider: PADDY ZAIDI spironolactone (ALDACTONE) 25 mg tablet 90 tablet 3 Sig: Take 1 tablet by mouth once daily. Authorizing Provider: PADDY ZAIDI MD Prescription Refill Information The patient has been identified by name and date of : Yes Caregiver verified no other encounters exist for this prescription request: Yes Caregiver confirmed with patient/requestor that no other refills are due, in the near future, with this provider at this time: Yes The last office visit in the department: 02/14/2024 Does the patient have a future office visit with this provider/department: No Requested Prescriptions Pending Prescriptions Disp Refills furosemide (LASIX) 20 mg tablet [Pharmacy Med Name: Furosemide 20 MG Oral Tablet] 30 tablet 0 Sig: Take 1 tablet by mouth once daily atorvastatin (LIPITOR) 40 mg tablet 90 tablet 3 Sig: Take 1 tablet by mouth once daily. atenolol (TENORMIN) 50 mg tablet 90 tablet 3 Sig: Take 0.5 tablets by mouth once daily. spironolactone (ALDACTONE) 25 mg tablet 90 tablet 3 Sig: Take 1 tablet by mouth once daily. Talia Ann LPN June 18, 2024 1:48 PM documented in this encounter [facility] 06-18-2024 Telephone encounter Note Prescription Refill Information The patient has been identified by name and date of : Yes Caregiver verified no other encounters exist for this prescription request: Yes Caregiver confirmed with patient/requestor that no other refills are due, in the near future, with this provider at this time: Yes The last office visit in the department: 02/14/2024 Does the patient have a future office visit with this provider/department: No Requested Prescriptions Pending Prescriptions Disp Refills furosemide (LASIX) 20 mg tablet [Pharmacy Med Name: Furosemide 20 MG Oral Tablet] 30 tablet 0 Sig: Take 1 tablet by mouth once daily atorvastatin (LIPITOR) 40 mg tablet 90 tablet 3 Sig: Take 1 tablet by mouth once daily. atenolol (TENORMIN) 50 mg tablet 90 tablet 3 Sig: Take 0.5 tablets by mouth once daily. spironolactone (ALDACTONE) 25 mg tablet 90 tablet 3 Sig: Take 1 tablet by mouth once daily. Talia Ann LPN June 18, 2024 1:48 PM [facility] 06-18-2024 Note HNO ID: [id number] Author: ANT DIAS MA Service: ? Author Type: Makeup Artistry Instructor Type: Progress Notes Filed: 06/18/2024 12:47 Note Text: POPULATION HEALTH NAVIGATION OUTREACH Action/FYI Patient is on [facility] Outreach List and needs appointment to address : DTaP,Tdap,Td Vaccine(1 - Tdap) Shingrix Vaccine(1 of 2) RSV Vaccine(1 - 1-dose 75+ series) Covid-19 Vaccine( season) Advance Directive Discussion LDL Cholesterol Patient due for: Medicare Annual Wellness Visit MyChart Active: No, offered activation N/A 1st Attempt: Attempted to reach patient, voicemail not set up yet, unable to leave message. No mychart available [facility] ([facility]) phone number provided [phone]: No Reason for Outreach [facility] Care Gaps due: Medicare Annual Wellness Visit Patient Contacted: Unable or unnecessary to reach patient: Unable to leave message Navigation Signature: Ant Dias MA June 18, 2024 12:44 PM [facility] 06-18-2024 History of Present illness Narrative POPULATION HEALTH NAVIGATION OUTREACH Action/FYI Patient is on [facility] Outreach List and needs appointment to address : DTaP,Tdap,Td Vaccine(1 - Tdap) Shingrix Vaccine(1 of 2) RSV Vaccine(1 - 1-dose 75+ series) Covid-19 Vaccine( season) Advance Directive Discussion LDL Cholesterol Patient due for: Medicare Annual Wellness Visit MyChart Active: No, offered activation N/A 1st Attempt: Attempted to reach patient, voicemail not set up yet, unable to leave message. No mychart available [facility] ([facility]) phone number provided [phone]: No Reason for Outreach [facility] Care Gaps due: Medicare Annual Wellness Visit Patient Contacted: Unable or unnecessary to reach patient: Unable to leave message Navigation Signature: Ant Dias MA June 18, 2024 12:44 PM [facility] Care Coordination Chart Review Provider Action / FYI: N/A Upon review of patient chart, the patient is excluded from Chronic Disease Management Patient is not a candidate for CDM at this time and placed in the following status: Unable to reach Action taken: Patient routed to Navigation Team Schedule PCP appointment(s) Navigation Team: AWV Needed Brayan Stallworth RN June 18, 2024 12:28 PM documented in this encounter [facility] 06-18-2024 Note HNO ID: [id number] Author: BRAYAN STALLWORTH RN Service: ? Author Type: Registered Nurse Type: Progress Notes Filed: 06/18/2024 12:30 Note Text: Value Based Care Coordination Chart Review Provider Action / FYI: N/A Upon review of patient chart, the patient is excluded from Chronic Disease Management Patient is not a candidate for CDM at this time and placed in the following status: Unable to reach Action taken: Patient routed to Navigation Team Schedule PCP appointment(s) Navigation Team: AWV Needed Brayan Stallworth RN June 18, 2024 12:28 PM [facility] 06-18-2024 Note Patient Outreach (AM [facility]) ARTURO PEDERSEN ([id number]) 1940 M Date Time Provider Department 06/18/24 BRAYAN STALLWORTH AMBG During your visit today, we recorded the following information about you: Brayan Stallworth RN 06/18/2024 12:30 PM Signed Value Based Care Coordination Chart Review Provider Action / FYI: N/A Upon review of patient chart, the patient is excluded from Chronic Disease Management Patient is not a candidate for CDM at this time and placed in the following status: Unable to reach Action taken: Patient routed to Navigation Team Schedule PCP appointment(s) Navigation Team: AWV Needed Brayan Stallworth RN June 18, 2024 12:28 PM Ant Dias MA 06/18/2024 12:47 PM Signed POPULATION HEALTH NAVIGATION OUTREACH Action/FYI Patient is on Value [facility] Outreach List and needs appointment to address : DTaP,Tdap,Td Vaccine(1 - Tdap) Shingrix Vaccine(1 of 2) RSV Vaccine(1 - 1-dose 75+ series) Covid-19 Vaccine( - season) Advance Directive Discussion LDL Cholesterol Patient due for: Medicare Annual Wellness Visit MyChart Active: No, offered activation N/A 1st Attempt: Attempted to reach patient, voicemail not set up yet, unable to leave message. No mychart available Healthy at Home (H@H) phone number provided [phone]: No Reason for Outreach Value [facility] Care Gaps due: Medicare Annual Wellness Visit Patient Contacted: Unable or unnecessary to reach patient: Unable to leave message Navigation Signature: Ant Dias MA June 18, 2024 12:44 PM Ant Dias MA 06/20/2024 8:24 AM Signed POPULATION HEALTH NAVIGATION OUTREACH Action/FYI Patient is on Value [facility] Outreach List and needs appointment to address : DTaP,Tdap,Td Vaccine(1 - Tdap) Shingrix Vaccine(1 of 2) RSV Vaccine(1 - 1-dose 75+ series) Covid-19 Vaccine( season) Advance Directive Discussion LDL Cholesterol Patient due for: Medicare Annual Wellness Visit MyChart Active: No, offered activation N/A 2nd Attempt: Attempted to reach patient, voicemail not set up yet, unable to leave message. No mychart available, sent letter. Healthy at Home (H@H) phone number provided [phone]: Yes via letter Reason for Outreach Value [facility] Care Gaps due: Medicare Annual Wellness Visit Patient Contacted: Unable or unnecessary to reach patient: Unable to leave message Letter mailed Navigation Signature: Ant Dias MA June 20, 2024 8:22 AM Corrina Fuentes MA 06/21/2024 8:30 AM Signed POPULATION [facility] NAVIGATION OUTREACH Action/FYI Letter received and sent to be mailed. Navigation Signature: Corrina Fuentes MA June 21, 2024 8:30 AM Allergies As of Date: 06/18/2024 Noted Allergy Reaction ASPIRIN 04/19/2018 16 - Unknown OXYCODONE 04/19/2018 14 - Other: See Comments PERCODAN (OXYCODONE-ASPIRIN) 12/17/2004 1 - Mental Status Change Date Reviewed: 03/27/2024 Reviewed by: Flavia Smith APRN.LABOR SPECIALIST - Fully Assessed Reason for Visit: Population Health Navigation Outreach [3910] Cmt: Value [facility] Prescriptions as of 06/21/2024 - furosemide (LASIX) 20 mg tablet Take 1 tablet by mouth once daily - atorvastatin (LIPITOR) 40 mg tablet Take 1 tablet by mouth once daily. - atenolol (TENORMIN) 50 mg tablet Take 0.5 tablets by mouth once daily. - spironolactone (ALDACTONE) 25 mg tablet Take 1 tablet by mouth once daily. - warfarin (COUMADIN) 2.5 mg tablet Take 1 tablet by mouth once daily. - fluticasone-salmeterol (ADVAIR DISKUS) 250-50 mcg/dose inhaler Inhale 1 Puff as instructed two times a day. RINSE AND GARGLE MOUTH WITH WATER AFTER EACH USE. - albuterol HFA (PROVENTIL HFA, VENTOLIN HFA) 90 mcg/actuation inhaler Inhale 2 Puffs as instructed every 4 hours as needed for wheezing/shortness of breath. - doxycycline monohydrate (MONODOX) 100 mg capsule Take 100 mg by mouth two times a day. - PARoxetine (PAXIL) 40 mg tablet Take 1 tablet by mouth once daily. - potassium chloride (K-TAB) 10 mEq tablet Take 2 tablets by mouth every morning. - levothyroxine (SYNTHROID) 50 mcg tablet Take 1 tablet by mouth once daily. - gabapentin (NEURONTIN) 100 mg capsule Take 2 capsules by mouth two times a day. For neuropathy - mirtazapine (REMERON) 30 mg tablet (Discontinued) Take 1 tablet by mouth daily at bedtime. - aspirin 81 mg chewable tablet Take 81 mg by mouth once daily. - nitroglycerin sublingual (NITROQUICK) 0.3 mg SL tablet Dissolve 1 tablet under the tongue every 5 minutes as needed. Problem List As Of Date 06/18/2024 Noted Resolved Atherosclerotic cardiovascular disease [I25.10] 12/17/2004 Essential hypertension [I10] 12/17/2004 Hyperlipidemia [E78.5] 12/17/2004 PAROX VENTRIC TACHYCARD [I47.20] 01/11/2005 Depression [F32.A] 12/27/2008 Dyspnea [R06.00] 09/04/2009 Acquired hypothyroidism [E03.9] 09/26/2012 Obstructive sleep apnea (more content not included)... [facility] 04-26-2024 Note HNO ID: [id number] Author: TALIA FERREIRA MA Service: ? Author Type: Makeup Artistry Instructor Type: Progress Notes Filed: 04/26/2024 14:42 Note Text: POPULATION HEALTH NAVIGATION OUTREACH Action/FYI Left message on patient's voice mail to return my call. Keila High Risk Patient is on ACO for the following HM care gaps: Last office visit 02/14/24. Wellness Visit MyChart Reason for Outreach Care Gap/HCC or Scheduling Wellness Visits Care Gaps due: Medicare Annual Wellness Visit Patient Contacted: Unable or unnecessary to reach patient: Left message Navigation Signature: Talia Ferreira MA April 26, 2024 2:37 PM [facility] 04-26-2024 History of Present illness Narrative POPULATION HEALTH NAVIGATION OUTREACH Action/FYI Left message on patient's voice mail to return my call. [employer] High Risk Patient is on ACO for the following HM care gaps: Last office visit 02/14/24. Wellness Visit MyChart Reason for Outreach Care Gap/HCC or Scheduling Wellness Visits Care Gaps due: Medicare Annual Wellness Visit Patient Contacted: Unable or unnecessary to reach patient: Left message Navigation Signature: Talia Ferreira MA April 26, 2024 2:37 PM documented in this encounter [facility] 04-26-2024 Note Patient Outreach (NE TNAV) ARTURO PEDERSEN ([id number]) 1940 M Date Time Provider Department 04/26/24 TALIA FERREIRA NETPRETTYV During your visit today, we recorded the following information about you: Talia Ferreira MA 04/26/2024 2:42 PM Signed POPULATION HEALTH NAVIGATION OUTREACH Action/FYI Left message on patient's voice mail to return my call. [employer] High Risk Patient is on ACO for the following HM care gaps: Last office visit 02/14/24. Wellness Visit MyChart Reason for Outreach Care Gap/HCC or Scheduling Wellness Visits Care Gaps due: Medicare Annual Wellness Visit Patient Contacted: Unable or unnecessary to reach patient: Left message Navigation Signature: Talia Ferreira MA April 26, 2024 2:37 PM Allergies As of Date: 04/26/2024 Noted Allergy Reaction ASPIRIN 04/19/2018 16 - Unknown OXYCODONE 04/19/2018 14 - Other: See Comments PERCODAN (OXYCODONE-ASPIRIN) 12/17/2004 1 - Mental Status Change Date Reviewed: 03/27/2024 Reviewed by: Flavia Smith APRN.LABOR SPECIALIST - Fully Assessed Reason for Visit: Population Health Navigation Outreach [3910] Cmt: [employer] High Risk - Attempt 2 Prescriptions as of 04/26/2024 - warfarin (COUMADIN) 2.5 mg tablet Take 1 tablet by mouth once daily. - fluticasone-salmeterol (ADVAIR DISKUS) 250-50 mcg/dose inhaler Inhale 1 Puff as instructed two times a day. RINSE AND GARGLE MOUTH WITH WATER AFTER EACH USE. - furosemide (LASIX) 20 mg tablet Take 1 tablet by mouth once daily. - albuterol HFA (PROVENTIL HFA, VENTOLIN HFA) 90 mcg/actuation inhaler Inhale 2 Puffs as instructed every 4 hours as needed for wheezing/shortness of breath. - doxycycline monohydrate (MONODOX) 100 mg capsule Take 100 mg by mouth two times a day. - PARoxetine (PAXIL) 40 mg tablet Take 1 tablet by mouth once daily. - potassium chloride (K-TAB) 10 mEq tablet Take 2 tablets by mouth every morning. - levothyroxine (SYNTHROID) 50 mcg tablet Take 1 tablet by mouth once daily. - spironolactone (ALDACTONE) 25 mg tablet Take 1 tablet by mouth once daily. - atorvastatin (LIPITOR) 40 mg tablet Take 1 tablet by mouth once daily. - gabapentin (NEURONTIN) 100 mg capsule Take 2 capsules by mouth two times a day. For neuropathy - atenolol (TENORMIN) 50 mg tablet Take 0.5 tablets by mouth once daily. - mirtazapine (REMERON) 30 mg tablet (Discontinued) Take 1 tablet by mouth daily at bedtime. - aspirin 81 mg chewable tablet Take 81 mg by mouth once daily. - nitroglycerin sublingual (NITROQUICK) 0.3 mg SL tablet Dissolve 1 tablet under the tongue every 5 minutes as needed. Problem List As Of Date 04/26/2024 Noted Resolved Atherosclerotic cardiovascular disease [I25.10] 12/17/2004 Essential hypertension [I10] 12/17/2004 Hyperlipidemia [E78.5] 12/17/2004 PAROX VENTRIC TACHYCARD [I47.29] 01/11/2005 Depression [F32.A] 12/27/2008 Dyspnea [R06.00] 09/04/2009 Acquired hypothyroidism [E03.9] 09/26/2012 Obstructive sleep apnea on CPAP [G47.33] 12/19/2014 Adjustment disorder with mixed anxiety and depr*02/01/2017 Pure hypercholesterolemia [E78.00] 06/12/2018 Idiopathic peripheral neuropathy [G60.9] 06/22/2021 Abnormal electrocardiogram [R94.31] 10/19/2017 Anxiety [F41.9] 12/23/2021 Atherosclerotic heart disease of [place] coron[place]*10/19/2017 Cerebrovascular accident (CVA) (HCC) [I63.9] 12/23/2021 [...] ar*12/23/2021 S/P angioplasty with stent [Z95.820] 12/23/2021 Obesity, Class I, BMI 30-34.9 [E66.811] 02/14/2024 Encounter Status:Closed by TALIA FERREIRA on 04/26/24 [facility] 04-09-2024 Miscellaneous Notes Prescription Refill Information The patient has been identified by name and date of : Yes Caregiver verified no other encounters exist for this prescription request: Yes Caregiver confirmed with patient/requestor that no other refills are due, in the near future, with this provider at this time: Yes The last office visit in the department: 02/14/2024 Does the patient have a future office visit with this provider/department: No Requested Prescriptions Pending Prescriptions Disp Refills warfarin (COUMADIN) 2.5 mg tablet [Pharmacy Med Name: Warfarin Sodium 2.5 MG Oral Tablet] 30 tablet 0 Sig: TAKE 1 TABLET BY MOUTH ONCE DAILY DIRECTED Talia Ann LPN April 09, 2024 11:10 AM documented in this encounter [facility] 04-09-2024 Telephone encounter Note Prescription Refill Information The patient has been identified by name and date of : Yes Caregiver verified no other encounters exist for this prescription request: Yes Caregiver confirmed with patient/requestor that no other refills are due, in the near future, with this provider at this time: Yes The last office visit in the department: 02/14/2024 Does the patient have a future office visit with this provider/department: No Requested Prescriptions Pending Prescriptions Disp Refills warfarin (COUMADIN) 2.5 mg tablet [Pharmacy Med Name: Warfarin Sodium 2.5 MG Oral Tablet] 30 tablet 0 Sig: TAKE 1 TABLET BY MOUTH ONCE DAILY DIRECTED Talia Ann LPN April 09, 2024 11:10 AM [facility] 03-27-2024 History of Present illness Narrative Radiology Service Progress Note PATIENT NAME: Arturo Pedersen DATE OF SERVICE: March 27, 2024 TIME: 3:57 PM PATIENT IDENTITY VERIFICATION COMPLETED USING TWO (2) IDENTIFIERS: Name and Date of confirmed by patient verbally. FALL SCREENING: Has the patient had 2 falls in the last year or 1 fall with injury or currently using an Ambulatory Assistive Device (Walker, Cane, Wheelchair, Crutches, etc.)? No PATIENT GENDER DATA: Assigned male at PATIENT RELEVANT IMPLANT DATA REVIEWED: Yes PATIENT PRESENTS WITH AN IMPLANTABLE OR ATTACHED RIB CUTTER: No RADIOLOGY DEPARTMENT: CT; Exam(s) Completed: Chest PERIPHERAL IV DATA: Not applicable SIGNED BY: RT Alfonso(R) March 27, 2024 3:57 PM documented in this encounter [facility] 03-27-2024 Note HNO ID: [id number] Author: DEANNE SAMUELS RT(Lillie) Service: ? Author Type: Environmental Services Manager Type: Progress Notes Filed: 03/27/2024 15:57 Note Text: Radiology Service Progress Note PATIENT NAME: Arturo Pedersen DATE OF SERVICE: March 27, 2024 TIME: 3:57 PM PATIENT IDENTITY VERIFICATION COMPLETED USING TWO (2) IDENTIFIERS: Name and Date of confirmed by patient verbally. FALL SCREENING: Has the patient had 2 falls in the last year or 1 fall with injury or currently using an Ambulatory Assistive Device (Walker, Cane, Wheelchair, Crutches, etc.)? No PATIENT GENDER DATA: Assigned male at PATIENT RELEVANT IMPLANT DATA REVIEWED: Yes PATIENT PRESENTS WITH AN IMPLANTABLE OR ATTACHED RIB CUTTER: No RADIOLOGY DEPARTMENT: CT; Exam(s) Completed: Chest PERIPHERAL IV DATA: Not applicable SIGNED BY: RT Alfonso(R) March 27, 2024 3:57 PM [facility] 03-27-2024 Instructions Flavia Smith APRN.[facility] - 03/27/2024 2:58 PM EST Fluticasone-salmeterol (Advair) 250-50 MCG 1 puff twice daily. Rinse mouth after every use. Your testing today shows you do not need to use oxygen during the day. We will test your oxygen at night to see if you are still requiring at night. When you complete the night time test, don't use the oxygen. I will let you know what the test shows once I get the results. documented in this encounter [facility] 03-27-2024 History of Present illness Narrative Images from the original note were not included. Pulmonary Medicine Patients name: Arturo Campbell PCP: Paddy Zaidi MD CC: follow-up HPI: Arturo Pedersen is a 83 year old male former [id number] smoker quitting in 1992 with PMH significant for obesity, coronary artery disease s/p CABG and stent, previous stroke, GERD, HLD, prostate cancer s/p radiation, HTN, PAF on AC, central sleep apnea not wearing PAP, chronic hypoxemic respiratory failure. Currently on PRN Albuterol. He presents today for testing and follow-up. New patient 03/05/[address] Huynh for evaluation for COPD. Had also just previously been hospitalized at [facility] for Pneumonia. At his last visit, he questioned whether he still needed oxygen. Was not on maintenance inhaler, only PRN Albuterol. Had complaints of exertional dyspnea and chest congestion. He was prescribed Breztri but could not afford so he has continued to use Albuterol. Currently needing a few times a week. Also due for follow-up chest CT to evaluate pneumonia and known lung nodule. Scheduled this afternoon. Today, he reports continued exertional dyspnea with pretty minimal activity. Denies dyspnea at rest. Denies current cough or hemoptysis. Occasional chest tightness. Has frequent wheezing that prompts his machinist general to remind him to use Albuterol. No fevers, chills, or night sweats. No unintended weight loss. Occasional lower extremity edema. He reports sleeping in a chair d/t feeling like he can't breath when he lays flat. He was just referred to cardiology by PCP. DME: [employer] 2L with exertion and at night PAST MEDICAL HISTORY Diagnosis Date CABG CAD (coronary artery disease) CABG, stent Central apnea CVA (cerebral infarction) 04/16/2014 Depression GERD (gastroesophageal reflux disease) Neuropathy Other and unspecified hyperlipidemia Prostate cancer (HCC) Unspecified essential hypertension Allergies: Aspirin Unknown Oxycodone Other: See Comments Percodan [Oxycodone* Mental Status Change Medication List Accurate as of March 21, 2024 10:39 AM. If you have any questions, ask your nurse or doctor. CONTINUE taking these medications albuterol HFA 90 mcg/actuation inhaler Commonly known as: PROVENTIL HFA, VENTOLIN HFA Inhale 2 Puffs as instructed every 4 hours as needed for wheezing/shortness of breath. aspirin 81 mg chewable tablet atenolol 50 mg tablet Commonly known as: TENORMIN Take 0.5 tablets by mouth once daily. atorvastatin 40 mg tablet Commonly known as: LIPITOR Take 1 tablet by mouth once daily. BREZTRI AEROSPHERE 160-9-4.8 mcg/actuation HFA aerosol inhaler Generic drug: [id number] Inhale 2 Puffs as instructed two times a day. doxycycline monohydrate 100 mg capsule Commonly known as: MONODOX furosemide 20 mg tablet Commonly known as: LASIX Take 1 tablet by mouth once daily. gabapentin 100 mg capsule Commonly known as: NEURONTIN Take 2 capsules by mouth two times a day. For neuropathy levothyroxine 50 mcg tablet Commonly known as: SYNTHROID Take 1 tablet by mouth once daily. nitroglycerin sublingual 0.3 mg SL tablet Commonly known as: NITROQUICK Dissolve 1 tablet under the tongue every 5 minutes as needed. PARoxetine 40 mg tablet Commonly known as: PaxiL Take 1 tablet by mouth once daily. potassium chloride 10 mEq tablet Commonly known as: K-TAB Take 2 tablets by mouth every morning. spironolactone 25 mg tablet Commonly known as: ALDACTONE Take 1 tablet by mouth once daily. warfarin 2.5 mg tablet Commonly known as: COUMADIN TAKE 1 TABLET BY MOUTH ONCE DAILY DIRECTED DATA: I personally reviewed and analyzed all labs, radiographs and available pulmonary function testing Oximetry with ambulation: 03/27/2024 PFT: 03/05/2024 Spirometry indicates severe obstruction. Negative bronchodilator response. The diffusing capacity (uncorrected for hemoglobin) is reduced. The kCO (DLCO/VA) reflects a normal transfer/diffusion of CO from the alveolar regions to the blood. Clinical correlation recommended. IMMUNIZATIONS Prevnar - xx Pneumovax 23 - xx Influenza - 02/2024 COVID-19 - xx RSV- xx Review of Systems Constitutional: Negative for activity change, appetite change and unexpected weight change. HENT: Negative for congestion, mouth sores, postnasal drip and sinus pain. Respiratory: Positive for chest tightness, shortness of breath and wheezing. Negative for cough. Cardiovascular: Positive for leg swelling. Negative for palpitations. Musculoskeletal: Positive for arthralgias and myalgias. Neurological: Negative for headaches. BP 122/80 Pulse 90 Resp 18 SpO2 95% Physical Exam Vitals reviewed. Constitutional: General: He is not in acute distress. Appearance: Normal appearance. HENT: Head: Normocephalic. Nose: No rhinorrhea. Mouth/Throat: Mouth: Mucous membranes are moist. Pharynx: No oropharyngeal exudate. Cardiovascular: Rate and Rhythm: Normal rate. Pulmonary: Effort: Pulmonary effort is normal. No respiratory distress. Breath sounds: No wheezing or rhonchi. Musculoskeletal: Right lower leg: Edema present. Left lower leg: Edema present. Comments: 1-2+ b/l LE edema Lymphadenopathy: Cervical: No cervical adenopathy. Skin: General: Skin is warm and dry. Capillary Refill: Capillary refill takes less than 2 seconds. Neurological: General: No focal deficit present. Mental Status: He is alert. ASSESSMENT/PLAN: 1. 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) - ICD9: 496, ICD10: J44.9 (primary diagnosis) - poor control of COPD symptoms and not currently on maintenance inhaler. - previously prescribed Breztri, could not afford. - will try ICS/LABA with Fluticasone-salmeterol (Advair) 250-50 MCG 1 puff twice daily. Rinse mouth after every use. - Continue Albuterol PRN. - close follow-up to monitor symptoms and titrate therapy. 2. Hypoxia - ICD9: 799.02, ICD10: R09.02 - has been on supplemental O2 for over a year. Testing today show stable SPO2 with exertion and results communicated to patient and caregiver. Will test at night. - OXIMETRY - NOCTURNAL 3. Pneumonia of left lower lobe due to infectious organism - ICD9: 486, ICD10: J18.9 - repeat chest CT this afternoon to assess for resolution. - denies current symptoms. 4. Lung nodules - ICD9: 793.19, ICD10: R91.8 - awaiting repeat chest CT F/u 2-3 months Portions of this documentation were copied and pasted from previous office visit notes in order to provide a cohesive continuity of the history. The note has been reviewed and edited and updated as necessary. Flavia Smith APRN.CNP I spent a total of 38 minutes on the date of the service which included preparing to see the patient, [id number] patient care, completing clinical documentation, performing a medically appropriate examination, counseling and educating the patient/family/caregiver, and ordering medications, tests, or procedures. documented in this encounter [facility] 03-27-2024 Note HNO ID: [id number] Author: FLAVIA SMITH APRN.CNP Service: ? Author Type: Nurse Practitioner Type: Progress Notes Filed: 03/27/2024 17:53 Note Text: Pulmonary Medicine Patients name: Arturo Campbell PCP: Paddy Zaidi MD CC: follow-up HPI: Arturo Pedersen is a 83 year old male former [id number] smoker quitting in 1992 with PMH significant for obesity, coronary artery disease s/p CABG and stent, previous stroke, GERD, HLD, prostate cancer s/p radiation, HTN, PAF on AC, central sleep apnea not wearing PAP, chronic hypoxemic respiratory failure. Currently on PRN Albuterol. He presents today for testing and follow-up. New patient 03/05/[address] Huynh for evaluation for COPD. Had also just previously been hospitalized at [facility] for Pneumonia. At his last visit, he questioned whether he still needed oxygen. Was not on maintenance inhaler, only PRN Albuterol. Had complaints of exertional dyspnea and chest congestion. He was prescribed Breztri but could not afford so he has continued to use Albuterol. Currently needing a few times a week. Also due for follow-up chest CT to evaluate pneumonia and known lung nodule. Scheduled this afternoon. Today, he reports continued exertional dyspnea with pretty minimal activity. Denies dyspnea at rest. Denies current cough or hemoptysis. Occasional chest tightness. Has frequent wheezing that prompts his machinist general to remind him to use Albuterol. No fevers, chills, or night sweats. No unintended weight loss. Occasional lower extremity edema. He reports sleeping in a chair d/t feeling like he can't breath when he lays flat. He was just referred to cardiology by PCP. DME: [employer] 2L with exertion and at night PAST MEDICAL HISTORY Diagnosis Date CABG CAD (coronary artery disease) CABG, stent Central apnea CVA (cerebral infarction) 04/16/2014 Depression GERD (gastroesophageal reflux disease) Neuropathy Other and unspecified hyperlipidemia Prostate cancer (HCC) Unspecified essential hypertension Allergies: Aspirin Unknown Oxycodone Other: See Comments Percodan [Oxycodone* Mental Status Change Medication List Accurate as of March 21, 2024 10:39 AM. If you have any questions, ask your nurse or doctor. CONTINUE taking these medications albuterol HFA 90 mcg/actuation inhaler Commonly known as: PROVENTIL HFA, VENTOLIN HFA Inhale 2 Puffs as instructed every 4 hours as needed for wheezing/shortness of breath. aspirin 81 mg chewable tablet atenolol 50 mg tablet Commonly known as: TENORMIN Take 0.5 tablets by mouth once daily. atorvastatin 40 mg tablet Commonly known as: LIPITOR Take 1 tablet by mouth once daily. BREZTRI AEROSPHERE 160-9-4.8 mcg/actuation HFA aerosol inhaler Generic drug: [id number]-tbxlpzxu-sujugitrma Inhale 2 Puffs as instructed two times a day. doxycycline monohydrate 100 mg capsule Commonly known as: MONODOX furosemide 20 mg tablet Commonly known as: LASIX Take 1 tablet by mouth once daily. gabapentin 100 mg capsule Commonly known as: NEURONTIN Take 2 capsules by mouth two times a day. For neuropathy levothyroxine 50 mcg tablet Commonly known as: SYNTHROID Take 1 tablet by mouth once daily. nitroglycerin sublingual 0.3 mg SL tablet Commonly known as: NITROQUICK Dissolve 1 tablet under the tongue every 5 minutes as needed. PARoxetine 40 mg tablet Commonly known as: PaxiL Take 1 tablet by mouth once daily. potassium chloride 10 mEq tablet Commonly known as: K-TAB Take 2 tablets by mouth every morning. spironolactone 25 mg tablet Commonly known as: ALDACTONE Take 1 tablet by mouth once daily. warfarin 2.5 mg tablet Commonly known as: COUMADIN TAKE 1 TABLET BY MOUTH ONCE DAILY DIRECTED DATA: I personally reviewed and analyzed all labs, radiographs and available pulmonary function testing Oximetry with ambulation: 03/27/2024 PFT: 03/05/2024 Spirometry indicates severe obstruction. Negative bronchodilator response. The diffusing capacity (uncorrected for hemoglobin) is reduced. The kCO (DLCO/VA) reflects a normal transfer/diffusion of CO from the alveolar regions to the blood. Clinical correlation recommended. IMMUNIZATIONS Prevnar - xx Pneumovax 23 - xx Influenza - 02/2024 COVID-19 - xx RSV- xx Review of Systems Constitutional: Negative for activity change, appetite change and unexpected weight change. HENT: Negative for congestion, mouth sores, postnasal drip and sinus pain. Respiratory: Positive for chest tightness, shortness of breath and wheezing. Negative for cough. Cardiovascular: Positive for leg swelling. Negative for palpitations. Musculoskeletal: Positive for arthralgias and myalgias. Neurological: Negative for headaches. BP 122/80 Pulse 90 Resp 18 SpO2 95% Physical Exam Vitals reviewed. Constitutional: General: He is not in acute distress. Appearance: Normal appearance. HENT: Head: Normoc (more content not included)... [facility] 03-27-2024 Note HNO ID: [id number] Author: SHELLY SIMS RPFT Service: ? Author Type: Respiratory Therapist Type: Procedures Filed: 03/27/2024 13:50 Note Text: RESPIRATORY THERAPY OXIMETRY WITH AMBULATION Oximetry with Ambulation Test for This Encounter O2 Device O2 Adapter NC O2 Flow SpO2% HR Activity Ft Walked (ft) Time (min) Avg Speed (MPH) R/A 96 107 Resting R/A 95 124 Walking, usual pace 290 3 1.1 General Information Pulse Oximetry Site Total Time Spent Walking Assistance/O2 Supply Carrier Forehead 30 Wheeled Walker NAME: MARY Guillaume PATIENT NAME: Arturo Pedersen DATE: March 27, 2024 TIME: 1:49 PM Comment: Patient does not have a faster pace [facility] 03-27-2024 Procedure note Associated Ord er(s): OXIMETRY WITH AMBULATION RESPIRATORY THERAPY OXIMETRY WITH AMBULATION Oximetry with Ambulation Test for This Encounter O2 Device O2 Adapter NC O2 Flow SpO2% HR Activity Ft Walked (ft) Time (min) Avg Speed (MPH) R/A 96 107 Resting R/A 95 124 Walking, usual pace 290 3 1.1 General Information Pulse Oximetry Site Total Time Spent Walking Assistance/O2 Supply Carrier Forehead 30 Wheeled Walker NAME: Shelly MARY Sims PATIENT NAME: Arturo Pedersen DATE: March 27, 2024 TIME: 1:49 PM Comment: Patient does not have a faster pace [facility] 03-27-2024 Procedure note Associated Ord er(s): OXIMETRY WITH AMBULATION RESPIRATORY THERAPY OXIMETRY WITH AMBULATION Oximetry with Ambulation Test for This Encounter O2 Device O2 Adapter NC O2 Flow SpO2% HR Activity Ft Walked (ft) Time (min) Avg Speed (MPH) R/A 96 107 Resting R/A 95 124 Walking, usual pace 290 3 1.1 General Information Pulse Oximetry Site Total Time Spent Walking Assistance/O2 Supply Carrier Forehead 30 Wheeled Walker NAME: Shelly MARY Sims PATIENT NAME: Arturo Pedersen DATE: March 27, 2024 TIME: 1:49 PM Comment: Patient does not have a faster pace documented in this encounter [facility] 03-27-2024 Note HNO ID: [id number] Author: SHELLY SIMS RPFT Service: ? Author Type: Respiratory Therapist Type: Progress Notes Filed: 03/27/2024 13:50 Note Text: PULM FUNCTION: Provider: Raina Huynh MD Assisting Tech: Shelly Sims RPFT Oximetry - Ambulation: 1 [facility] 03-27-2024 History of Present illness Narrative PULM FUNCTION: Provider: Raina Huynh MD Assisting Tech: Shelly Sims RPFT Oximetry - Ambulation: 1 documented in this encounter [facility] 03-21-2024 Telephone encounter Note I spoke with Adrian, and he is now scheduled to see Dr. Zaidi on Tuesday. There were many available times remaining for this week, but Adrian and his caregiver declined all options. They said he does not feel it is an emergency. I explained primary care team really wanted him to be seen this week, but they declined. Lacie Muñoz [facility] 03-21-2024 Miscellaneous Notes I spoke with Adrian, and he is now scheduled to see Dr. Zaidi on Tuesday. There were many available times remaining for this week, but Adrian and his caregiver declined all options. They said he does not feel it is an emergency. I explained primary care team really wanted him to be seen this week, but they declined. Lacie Muñoz Please offer appointment with Dr. Zaidi this week Hever Martínez APRN.LABOR SPECIALIST Patient states he has discussed some issues he has had with provider concerning times he wakes up in a panic, scared noting sl. Pressure under the lt breast, at times cannot catch his breath. Wears 2 L oxygen all of the time. An episode may last 10 minutes but then he feels fine, did have an episode this am that lasted about 10 minutes, reports he feels fine now. Hui feels since he has been on the Coumadin he does not appear to have the above episodes as frequently. Hui states he has different type of panic attacks at times, the increase in the Paxil, (done on 02/14/2024) does not really appear to help those attacks. Has an appt. With Cardiology in November, does not want to wait that long to see someone about these episodes. Hui is going to call to see if he can be seen earlier by Cardiology, if not will make an appt. To see PCP, advised PCP does have availability to be seen. To go to the ED if sx warrant medical attention. ISAUROI documented in this encounter [facility] 03-21-2024 Telephone encounter Note Please offer appointment with Dr. Zaidi this week Hevre Martínez APRN.LABOR SPECIALIST [facility] 03-21-2024 Telephone encounter Note Hui states patient was supposed to have a refill of the Lasix after an OV on 02/14/2024, it was not prescribed. Has been out since that visit. Please address. Rx pended. [facility] 03-21-2024 Miscellaneous Notes Hui states patient was supposed to have a refill of the Lasix after an OV on 02/14/2024, it was not prescribed. Has been out since that visit. Please address. Rx pended. documented in this encounter [facility] 03-21-2024 Telephone encounter Note Patient states he has discussed some issues he has had with provider concerning times he wakes up in a panic, scared noting sl. Pressure under the lt breast, at times cannot catch his breath. Wears 2 L oxygen all of the time. An episode may last 10 minutes but then he feels fine, did have an episode this am that lasted about 10 minutes, reports he feels fine now. Hui feels since he has been on the Coumadin he does not appear to have the above episodes as frequently. Hui states he has different type of panic attacks at times, the increase in the Paxil, (done on 02/14/2024) does not really appear to help those attacks. Has an appt. With Cardiology in November, does not want to wait that long to see someone about these episodes. Hui is going to call to see if he can be seen earlier by Cardiology, if not will make an appt. To see PCP, advised PCP does have availability to be seen. To go to the ED if sx warrant medical attention. FYI [facility] 03-21-2024 Telephone encounter Note Spoke to Hui and patient at length. Patient will take 7.5 mg of Coumadin tomorrow then resume taking 2.5 mg like he has been. Will have BW done around 03/29. Tracker done [facility] 03-21-2024 Miscellaneous Notes Spoke to Hui and patient at length. Patient will take 7.5 mg of Coumadin tomorrow then resume taking 2.5 mg like he has been. Will have BW done around 03/29. Tracker done Called [phone]. No answer. Mailbox still full. Called Hui at [phone] Vm still full-could not leave message. Called all other listed numbers- no answer. VM's are all full-could not leave message. Not active on MyChart. Will need to try again later. Violetta Humphrey RN Just take 1 time dose of 5 mg. One extra pill just one dose. Check INR in 2 weeks Paddy Zaidi MD Spoke to Hui- states he has been taking warfarin every day, 2.5 mg. Never misses a day. Call Hui back with response [phone]-did advise her to clean out VM so we can leave messages. Violetta Humphrey RN Called pt, no answer. LVM to call office back Called all numbers listed in chart- no answer. No VM available to leave message. Not on MYChart. Will need to try again later. Violetta Humphrey RN INR is a little low , have you been taking warfarin 2.5 mg daily every day? May need to increase dose a bit. Please review with patient and advise. Paddy Zaidi MD documented in this encounter [facility] 03-20-2024 Note HNO ID: [id number] Author: ELENITA DEY MA Service: ? Author Type: Makeup Artistry Instructor Type: Progress Notes Filed: 03/20/2024 16:32 Note Text: POPULATION HEALTH NAVIGATION OUTREACH Action/FYI Left message for [employer] High Risk and care gaps. PCP Follow up NO Annual Wellness YES Mammogram NO Colonoscopy -Address if due this year NO A1C - Do not address if not due current month NO Dilated Retinal Exam NO KED NO FLU NO Reason for Outreach Care Gap/HCC or Scheduling Wellness Visits Care Gaps due: Medicare Annual Wellness Visit Patient Contacted: Unable or unnecessary to reach patient: Left message Navigation Signature: Elenita Dey MA March 20, 2024 4:29 PM [facility] 03-20-2024 History of Present illness Narrative POPULATION HEALTH NAVIGATION OUTREACH Action/FYI Left message for [employer] High Risk and care gaps. PCP Follow up NO Annual Wellness YES Mammogram NO Colonoscopy -Address if due this year NO A1C - Do not address if not due current month NO Dilated Retinal Exam NO KED NO FLU NO Reason for Outreach Care Gap/HCC or Scheduling Wellness Visits Care Gaps due: Medicare Annual Wellness Visit Patient Contacted: Unable or unnecessary to reach patient: Left message Navigation Signature: Elenita Dey MA March 20, 2024 4:29 PM documented in this encounter [facility] 03-20-2024 Note Patient Outreach (NE TNAV) ARTURO PEDERSEN ([id number]) 1940 M Date Time Provider Department 03/20/24 ELENITA DEY NETNAV During your visit today, we recorded the following information about you: Elenita Dey MA 03/20/2024 4:32 PM Signed POPULATION HEALTH NAVIGATION OUTREACH Action/FYI Left message for [employer] High Risk and care gaps. PCP Follow up NO Annual Wellness YES Mammogram NO Colonoscopy -Address if due this year NO A1C - Do not address if not due current month NO Dilated Retinal Exam NO KED NO FLU NO Reason for Outreach Care Gap/HCC or Scheduling Wellness Visits Care Gaps due: Medicare Annual Wellness Visit Patient Contacted: Unable or unnecessary to reach patient: Left message Navigation Signature: Elenita Dey MA March 20, 2024 4:29 PM Allergies As of Date: 03/20/2024 Noted Allergy Reaction ASPIRIN 04/19/2018 16 - Unknown OXYCODONE 04/19/2018 14 - Other: See Comments PERCODAN (OXYCODONE-ASPIRIN) 12/17/2004 1 - Mental Status Change Date Reviewed: 03/05/2024 Reviewed by: Pantea, Edwina, RECEPTIONIST SECRETARY - Fully Assessed Reason for Visit: Population Health Navigation Outreach [3910] Cmt: [employer] High Risk Attempt #1 Prescriptions as of 03/20/2024 - warfarin (COUMADIN) 2.5 mg tablet TAKE 1 TABLET BY MOUTH ONCE DAILY DIRECTED - yggxmxbodp-pjyxgbme-tdfytwdrzs (BREZTRI AEROSPHERE) 160-9-4.8 mcg/actuation HFA aerosol inhaler Inhale 2 Puffs as instructed two times a day. - albuterol HFA (PROVENTIL HFA, VENTOLIN HFA) 90 mcg/actuation inhaler Inhale 2 Puffs as instructed every 4 hours as needed for wheezing/shortness of breath. - doxycycline monohydrate (MONODOX) 100 mg capsule Take 100 mg by mouth two times a day. - PARoxetine (PAXIL) 40 mg tablet Take 1 tablet by mouth once daily. - potassium chloride (K-TAB) 10 mEq tablet Take 2 tablets by mouth every morning. - levothyroxine (SYNTHROID) 50 mcg tablet Take 1 tablet by mouth once daily. - spironolactone (ALDACTONE) 25 mg tablet Take 1 tablet by mouth once daily. - atorvastatin (LIPITOR) 40 mg tablet Take 1 tablet by mouth once daily. - gabapentin (NEURONTIN) 100 mg capsule Take 2 capsules by mouth two times a day. For neuropathy - atenolol (TENORMIN) 50 mg tablet Take 0.5 tablets by mouth once daily. - furosemide (LASIX) 20 mg tablet Take 1 tablet by mouth once daily. - mirtazapine (REMERON) 30 mg tablet (Discontinued) Take 1 tablet by mouth daily at bedtime. - aspirin 81 mg chewable tablet Take 81 mg by mouth once daily. - nitroglycerin sublingual (NITROQUICK) 0.3 mg SL tablet Dissolve 1 tablet under the tongue every 5 minutes as needed. Problem List As Of Date 03/20/2024 Noted Resolved Atherosclerotic cardiovascular disease [I25.10] 12/17/2004 Essential hypertension [I10] 12/17/2004 Hyperlipidemia [E78.5] 12/17/2004 PAROX VENTRIC TACHYCARD [I47.29] 01/11/2005 Depression [F32.A] 12/27/2008 Dyspnea [R06.00] 09/04/2009 Acquired hypothyroidism [E03.9] 09/26/2012 Obstructive sleep apnea on CPAP [G47.33] 12/19/2014 Adjustment disorder with mixed anxiety and depr*02/01/2017 Pure hypercholesterolemia [E78.00] 06/12/2018 Idiopathic peripheral neuropathy [G60.9] 06/22/2021 Abnormal electrocardiogram [R94.31] 10/19/2017 Anxiety [F41.9] 12/23/2021 Atherosclerotic heart disease of [place] coronar*10/19/2017 Cerebrovascular accident (CVA) (HCC) [I63.9] 12/23/2021 [...] ar*12/23/2021 S/P angioplasty with stent [Z95.820] 12/23/2021 Obesity, Class I, BMI 30-34.9 [E66.811] 02/14/2024 Encounter Status:Closed by ELENITA DEY on 03/20/24 [facility] 03-19-2024 Telephone encounter Note Called [phone]. No answer. Mailbox still full. [facility] 03-17-2024 Telephone encounter Note Called Hui at [phone] Vm still full-could not leave message. Called all other listed numbers- no answer. VM's are all full-could not leave message. Not active on MyChart. Will need to try again later. Violetta Humphrey RN [facility] 03-16-2024 Telephone encounter Note Just take 1 time dose of 5 mg. One extra pill just one dose. Check INR in 2 weeks Paddy Zaidi MD [facility] 03-16-2024 Telephone encounter Note Spoke to Hui- states he has been taking warfarin every day, 2.5 mg. Never misses a day. Call Hui back with response [phone]-did advise her to clean out VM so we can leave messages. Violetta Humphrey RN [facility] 03-13-2024 Telephone encounter Note Prescription Refill Information The patient has been identified by name and date of : Yes Caregiver verified no other encounters exist for this prescription request: Yes Caregiver confirmed with patient/requestor that no other refills are due, in the near future, with this provider at this time: Yes The last office visit in the department: 02/14/2024 Does the patient have a future office visit with this provider/department: No Requested Prescriptions Pending Prescriptions Disp Refills warfarin (COUMADIN) 2.5 mg tablet [Pharmacy Med Name: Warfarin Sodium 2.5 MG Oral Tablet] 30 tablet 0 Sig: TAKE 1 TABLET BY MOUTH ONCE DAILY DIRECTED Talia Ann LPN March 13, 2024 8:22 AM [facility] 03-13-2024 Miscellaneous Notes Prescription Refill Information The patient has been identified by name and date of : Yes Caregiver verified no other encounters exist for this prescription request: Yes Caregiver confirmed with patient/requestor that no other refills are due, in the near future, with this provider at this time: Yes The last office visit in the department: 02/14/2024 Does the patient have a future office visit with this provider/department: No Requested Prescriptions Pending Prescriptions Disp Refills warfarin (COUMADIN) 2.5 mg tablet [Pharmacy Med Name: Warfarin Sodium 2.5 MG Oral Tablet] 30 tablet 0 Sig: TAKE 1 TABLET BY MOUTH ONCE DAILY DIRECTED Talia Ann LPN March 13, 2024 8:22 AM documented in this encounter [facility] 03-12-2024 Telephone encounter Note Called pt, no answer. LVM to call office back [facility] 03-07-2024 Telephone encounter Note Called all numbers listed in chart- no answer. No VM available to leave message. Not on MYChart. Will need to try again later. Violetta Humphrey RN [facility] 03-06-2024 Telephone encounter Note INR is a little low , have you been taking warfarin 2.5 mg daily every day? May need to increase dose a bit. Please review with patient and advise. Paddy Zaidi MD [facility] 03-06-2024 Telephone encounter Note Breztri and Trelegy both showing as preferred level 1 in orders tab. Per [employer] SERS plan formulary list, preferred brand name drugs come with 25% copay (max of $100) per 30 day supply. Patient also has the option of mail order for max copay of $200 for a 90 day supply. Spoke with patient's son Gila re: same. If medication is cost prohibitive we could see if SW can inquire about medication assistance. Edwina Jones LPN [facility] 03-06-2024 Miscellaneous Notes Breztri and Trelegy both showing as preferred level 1 in orders tab. Per [employer] SERS plan formulary list, preferred brand name drugs come with 25% copay (max of $100) per 30 day supply. Patient also has the option of mail order for max copay of $200 for a 90 day supply. Spoke with patient's son Gila re: same. If medication is cost prohibitive we could see if SW can inquire about medication assistance. Edwina Jones LPN Analilia - Pharmacist from [facility] calling and asking if there is an alternative to the Breztri inhaler? Patient has a $100.00 copay and is unable to afford it. documented in this encounter [facility] 03-06-2024 Telephone encounter Note Analilia - Pharmacist from [facility] calling and asking if there is an alternative to the Breztri inhaler? Patient has a $100.00 copay and is unable to afford it. [facility] 03-05-2024 History of Present illness Narrative Images from the original note were not included. . Respiratory [place] Note Patient name: Arturo Pedersen PCP: Paddy Zaidi MD Referring Physician: Hever Martínez CNP Consultation requested by Hever Martínez for an opinion regarding COPD. My final recommendations will be communicated back to the requesting physician by way of shared Medical record or letter to requesting physician via US mail. CC: COPD HPI: Arturo Pedersen 83 year old male former [id number] smoker quitting in 1992 with PMH significant for obesity, coronary artery disease s/p CABG and stent, previous stroke, GERD, HLD, prostate cancer s/p radiation, HTN, PAF on AC, central sleep apnea not wearing PAP, chronic hypoxemic respiratory failure being sent for evaluation of COPD. Recently hospitalized at [facility] for pneumonia. CT of the chest shows left lower lobe infiltrate, atelectasis in right lower lobe and a left lower lobe nodule. He was discharged on albuterol as needed. He does not have maintenance inhaler. He is questioning whether he needs to continue with supplemental oxygen. Main pulmonary symptoms are dyspnea with exertion, chest congestion, difficulty expectorating mucus, no audible wheezing. He denies any chest pain. He denies history of recurrent bronchitis. DME: [employer] DATA: PFT: PFT [facility] 10/23/2018; FVC 2.41 L 57% FEV1 1.62 L 54% FEV1/FVC 67% No improvement post-bronchodilator TLC 5.01 L 76% RV 2.60 L 94% RV/TLC 52% DLCO 15.2 73% Imaging / Diagnostic Studies: [facility] MR#: [id number] Acct: [id number] Name: ARTURO PEDERSEN Rep #: [id number] : 1940 M 83 From: Shayne Holt MD PCP: Dr. Shayne Zaidi MD Status: REG ER Study: CTA Chest W/WO Contrast Date of Exam: 02/07/24 STUDY: CTA CHEST COMPARISON: December 15, 2021 FINDINGS: Normal enhancement of the main pulmonary artery and right and left pulmonary arteries. Normal enhancement of the bilateral peripheral pulmonary arteries. There is no demonstrated pulmonary embolism. Mild atherosclerotic changes of the aorta without evidence for aneurysm There is no demonstrated aortic dissection. Heart size is normal. There is multifocal coronary artery calcification. Mildly enlarged hilar and mediastinal nodes largest measuring approximately 1.5 to 2 cm size range . Normal visualized trachea and bronchi. The lungs are well expanded. There is mild atelectasis or infiltrate in left lower lobe There is loss of volume in right hemithorax with elevation of the right hemidiaphragm and subsegmental atelectasis in the right lower lobe Normal pleura. Postop change status post median sternotomy and CABG. Normal osseous structures. Multiple calcified gallstones without evidence for acute cholecystitis. IMPRESSION: Mild basilar atelectasis or infiltrate and subsegmental atelectasis in the right lower lobe in association with elevated right hemidiaphragm. No evidence for pulmonary embolus Review of CT shows mild emphysema, elevated right hemidiaphragm with basilar atelectasis, nodular infiltrate and nodule in left lower lobe PAST MEDICAL HISTORY Diagnosis Date CABG CAD (coronary artery disease) CABG, stent Central apnea CVA (cerebral infarction) 04/16/2014 Depression GERD (gastroesophageal reflux disease) Neuropathy Other and unspecified hyperlipidemia Prostate cancer (HCC) Unspecified essential hypertension ALLERGIES Allergen Reactions Aspirin Unknown Oxycodone Other: See Comments Percodan [Oxycodone* Mental Status Change levothyroxine (SYNTHROID) 50 mcg tablet Take 1 tablet by mouth once daily. spironolactone (ALDACTONE) 25 mg tablet Take 1 tablet by mouth once daily. atorvastatin (LIPITOR) 40 mg tablet Take 1 tablet by mouth once daily. gabapentin (NEURONTIN) 100 mg capsule Take 2 capsules by mouth two times a day. For neuropathy atenolol (TENORMIN) 50 mg tablet Take 0.5 tablets by mouth once daily. furosemide (LASIX) 20 mg tablet Take 1 tablet by mouth once daily. aspirin 81 mg chewable tablet Take 81 mg by mouth once daily. nitroglycerin sublingual (NITROQUICK) 0.3 mg SL tablet Dissolve 1 tablet under the tongue every 5 minutes as needed. rixlbywmgy-qbhzanzk-urzkpocvmc (BREZTRI AEROSPHERE) 160-9-4.8 mcg/actuation HFA aerosol inhaler Inhale 2 Puffs as instructed two times a day. albuterol HFA (PROVENTIL HFA, VENTOLIN HFA) 90 mcg/actuation inhaler Inhale 2 Puffs as instructed every 4 hours as needed for wheezing/shortness of breath. warfarin (COUMADIN) 2.5 mg tablet Take 1 tablet by mouth daily as directed. doxycycline monohydrate (MONODOX) 100 mg capsule Take 100 mg by mouth two times a day. PARoxetine (PAXIL) 40 mg tablet Take 1 tablet by mouth once daily. potassium chloride (K-TAB) 10 mEq tablet Take 2 tablets by mouth every morning. [DISCONTINUED] mirtazapine (REMERON) 30 mg tablet Take 1 tablet by mouth daily at bedtime. Social History Tobacco Use Smoking status: Former Current packs/day: 0.00 Average packs/day: 2.0 packs/day for 25.0 years (50.0 ttl pk-yrs) Types: Cigarettes Start date: 10/17/1967 Quit date: 10/16/1992 Years since quittin.4 Smokeless tobacco: Never Vaping Use Vaping status: Never Used Substance Use Topics Alcohol use: No Drug use: No Worked at [employer] for 32 years Pets: None FAMILY HISTORY Problem Relation Age of Onset Heart Father Prostate Cancer Father Alzheimer's Disease Mother PAST SURGICAL HISTORY Procedure Laterality Date ARTHRP ACETBLR/PROX FEM PROSTC AGRFT/ALGRFT CABG (2) VEIN GRAFTS & ARTERIAL GRAFT(S PAST SURGICAL HISTORY OF 07/24/2018 removal of hardware, left thr radiation for prostate cancer TREAT HIP FRACTURE(S) Left 11/2017 hip screw placed [facility] PMH, Social history, family history and surgical history reviewed and updated in EMR REVIEW OF SYSTEMS: CONSTITUTIONAL: No fevers, chills, nightsweats, unintended weight loss HEENT: Denies nasal congestion/sinus symptoms, allergy problems. Hearing loss EYES: No visual changes CARDIOVASCULAR: No chest pain, palpitations, orthopnea, PND. Chronic edema PULM: See HPI GI: No dysphagia/odynophagia. GERD : No urinary complaints. History of state cancer NEURO: Poor balance, ambulates with a rolling walker, peripheral neuropathy MUSC-SKEL: Arthritis, previous hip replacement PSY: No concerns regarding depression, anxiety INTEGUMENTARY: No new skin changes SICAL EXAMINATION: BP 122/68 Pulse 112 Resp 14 Ht 5' 7.52 (1.72m) Wt 212 lb (96.2kg) SpO2 96% BMI 32.69 kg/(m^2). General Appearance: Age-appropriate male, NAD. Skin: Skin color, texture, turgor normal, no suspicious rashes or lesions. Head: Normocephalic, no masses, lesions, tenderness or abnormalities. Eyes: Sclera, conjunctiva normal. Oropharynx: Oral lesions. Mucous in posterior pharynx Neck: No masses or adenopathy. Lungs: Not labored, few scattered rhonchi, diminished breath sounds. Heart: Irregular rhythm, no murmurs. Extremities: Pitting edema, no clubbing. Assessment/Plan: 1. Severe COPD, GOLD stage 3 -Needs maintenance inhaled therapy. Prescribed Breztri -Refilled albuterol 2. Pneumonia left lower lobe -Due for surveillance CT of the chest 3. Lung nodule -Surveillance CT of the chest 4. Former cigarette smoker -Former smoker with sequelae of COPD -Continue abstinence 5. Chronic hypoxemic respiratory failure -Suspect he will need supplemental oxygen -Ambulation oximetry testing Raina Huynh MD Respiratory [place] documented in this encounter [facility] 03-05-2024 Note HNO ID: [id number] Author: RAINA HUYNH MD Service: ? Author Type: Physician Type: Progress Notes Filed: 03/05/2024 16:00 Note Text: . Respiratory [place] Note Patient name: Arturo Pedersen PCP: Paddy Zaidi MD Referring Physician: Hever Martínez CNP Consultation requested by Hever Martínez for an opinion regarding COPD. My final recommendations will be communicated back to the requesting physician by way of shared Medical record or letter to requesting physician via US mail. CC: COPD HPI: Arturo Pedersen 83 year old male former [id number] smoker quitting in 1992 with PMH significant for obesity, coronary artery disease s/p CABG and stent, previous stroke, GERD, HLD, prostate cancer s/p radiation, HTN, PAF on AC, central sleep apnea not wearing PAP, chronic hypoxemic respiratory failure being sent for evaluation of COPD. Recently hospitalized at [facility] for pneumonia. CT of the chest shows left lower lobe infiltrate, atelectasis in right lower lobe and a left lower lobe nodule. He was discharged on albuterol as needed. He does not have maintenance inhaler. He is questioning whether he needs to continue with supplemental oxygen. Main pulmonary symptoms are dyspnea with exertion, chest congestion, difficulty expectorating mucus, no audible wheezing. He denies any chest pain. He denies history of recurrent bronchitis. DME: [employer] DATA: PFT: PFT [facility] 10/23/2018; FVC 2.41 L 57% FEV1 1.62 L 54% FEV1/FVC 67% No improvement post-bronchodilator TLC 5.01 L 76% RV 2.60 L 94% RV/TLC 52% DLCO 15.2 73% Imaging / Diagnostic Studies: [facility] MR#: [id number] Acct: [id number] Name: ARTURO PEDERSEN Rep #: [id number] : 1940 83 From: Shayne Holt MD PCP: Dr. Shayne Zaidi MD Status: REG ER Study: CTA Chest W/WO Contrast Date of Exam: 02/07/24 STUDY: CTA CHEST COMPARISON: December 15, 2021 FINDINGS: Normal enhancement of the main pulmonary artery and right and left pulmonary arteries. Normal enhancement of the bilateral peripheral pulmonary arteries. There is no demonstrated pulmonary embolism. Mild atherosclerotic changes of the aorta without evidence for aneurysm There is no demonstrated aortic dissection. Heart size is normal. There is multifocal coronary artery calcification. Mildly enlarged hilar and mediastinal nodes largest measuring approximately 1.5 to 2 cm size range . Normal visualized trachea and bronchi. The lungs are well expanded. There is mild atelectasis or infiltrate in left lower lobe There is loss of volume in right hemithorax with elevation of the right hemidiaphragm and subsegmental atelectasis in the right lower lobe Normal pleura. Postop change status post median sternotomy and CABG. Normal osseous structures. Multiple calcified gallstones without evidence for acute cholecystitis. IMPRESSION: Mild basilar atelectasis or infiltrate and subsegmental atelectasis in the right lower lobe in association with elevated right hemidiaphragm. No evidence for pulmonary embolus Review of CT shows mild emphysema, elevated right hemidiaphragm with basilar atelectasis, nodular infiltrate and nodule in left lower lobe PAST MEDICAL HISTORY Diagnosis Date CABG CAD (coronary artery disease) CABG, stent Central apnea CVA (cerebral infarction) 04/16/2014 Depression GERD (gastroesophageal reflux disease) Neuropathy Other and unspecified hyperlipidemia Prostate cancer (HCC) Unspecified essential hypertension ALLERGIES Allergen Reactions Aspirin Unknown Oxycodone Other: See Comments Percodan [Oxycodone* Mental Status Change levothyroxine (SYNTHROID) 50 mcg tablet Take 1 tablet by mouth once daily. spironolactone (ALDACTONE) 25 mg tablet Take 1 tablet by mouth once daily. atorvastatin (LIPITOR) 40 mg tablet Take 1 tablet by mouth once daily. gabapentin (NEURONTIN) 100 mg capsule Take 2 capsules by mouth two times a day. For neuropathy atenolol (TENORMIN) 50 mg tablet Take 0.5 tablets by mouth once daily. furosemide (LASIX) 20 mg tablet Take 1 tablet by mouth once daily. aspirin 81 mg chewable tablet Take 81 mg by mouth once daily. nitroglycerin sublingual (NITROQUICK) 0.3 mg SL tablet Dissolve 1 tablet under the tongue every 5 minutes as needed. lwjccmiaqn-clhhkbfd-gqppfinwjk (BREZTRI AEROSPHERE) 160-9-4.8 mcg/actuation HFA aerosol inhaler Inhale 2 Puffs as instructed two times a day. albuterol HFA (PROVENTIL HFA, VENTOLIN HFA) 90 mcg/actuation inhaler Inhale 2 Puffs as instructed every 4 hours as needed for wheezing/shortness of breath. warfarin (COUMADIN) 2.5 mg tablet Take 1 tablet by mouth daily as directed. doxycycline monohydrate (MONODOX) 100 mg capsule Take 100 mg by mouth two times a day. PARoxetine (PAXIL) 40 mg tablet Take 1 tablet by mouth once daily. potassium chloride (K-TAB) 10 mEq tablet Take 2 tablets by mouth every morning. (more content not included)... [facility] 03-05-2024 Note HNO ID: [id number] Author: SHELLY SIMS RPFT Service: ? Author Type: Respiratory Therapist Type: Progress Notes Filed: 03/05/2024 15:09 Note Text: PULM FUNCTION: Provider: Raina Huynh MD Assisting Tech: Shelly Sims RPFT Spirometry w/BD: 1 DLCO: 1 [facility] 03-05-2024 History of Present illness Narrative PULM FUNCTION: Provider: Raina Huynh MD Assisting Tech: Shelly Sism RPFT Spirometry w/BD: 1 DLCO: 1 documented in this encounter [facility] 02-16-2024 Telephone encounter Note Patients son aware that medication was sent to [facility] in [place]. Son stated he understood that blood work needed drawn in 1 week in [place]. [facility] 02-16-2024 Miscellaneous Notes Patients son aware that medication was sent to [facility] in [place]. Son stated he understood that blood work needed drawn in 1 week in [place]. Will try warfarin. Start with 2.5 mg daily, check INR in 1 week. How will he get labs done? The following approved medication requests have been transmitted electronically. Requested Prescriptions Signed Prescriptions Disp Refills warfarin (COUMADIN) 2.5 mg tablet 30 tablet 0 Sig: Take 1 tablet by mouth daily as directed. Authorizing Provider: PADDY ZAIDI INR ordered for 1x per week, standing order for [place] lab. Once he's on a steady dose can cut this back to 1x per sergio . Paddy Zaidi MD Hui, Caregiver, is calling Paddy Zaidi MD today with concern regarding Medication Problem. Patient Elishaniceis is $300 with the copay and he cannot afford this. They are asking for Warfarin or another medication. Patient has been identified by name and birthdate. Duration of symptoms: N/A Hui Call patient at: [phone] (home) [phone] (cell) Was an appointment scheduled: No Closing statement: Corrina Riggins documented in this encounter [facility] 02-16-2024 Telephone encounter Note Will try warfarin. Start with 2.5 mg daily, check INR in 1 week. How will he get labs done? The following approved medication requests have been transmitted electronically. Requested Prescriptions Signed Prescriptions Disp Refills warfarin (COUMADIN) 2.5 mg tablet 30 tablet 0 Sig: Take 1 tablet by mouth daily as directed. Authorizing Provider: PADDY ZAIDI INR ordered for 1x per week, standing order for [facility]. Once he's on a steady dose can cut this back to 1x per sergio . Paddy Zaidi MD [facility] 02-15-2024 Telephone encounter Note Hui, Caregiver, is calling Paddy Zaidi MD today with concern regarding Medication Problem. Patient Jose is $300 with the copay and he cannot afford this. They are asking for Warfarin or another medication. Patient has been identified by name and birthdate. Duration of symptoms: N/A Hui Call patient at: [phone] (home) [phone] (cell) Was an appointment scheduled: No Closing statement: Corrina Riggins [facility] Work Phone: 02-14-2024 Telephone encounter Note The following approved medication requests have been transmitted electronically. Requested Prescriptions Signed Prescriptions Disp Refills ELIQUIS 5 mg tab(s) 180 tablet 3 Sig: Take 1 tablet by mouth two times a day. Authorizing Provider: PADDY ZAIDI MD [facility] 02-14-2024 Miscellaneous Notes The following approved medication requests have been transmitted electronically. Requested Prescriptions Signed Prescriptions Disp Refills ELIQUIS 5 mg tab(s) 180 tablet 3 Sig: Take 1 tablet by mouth two times a day. Authorizing Provider: PADDY ZAIDI MD [facility] is calling regarding the Eliquis and stated he has not been taking the med regularly and they need a new script. Patient has been identified by name and date of : Yes Pharmacy phones for refill(s): Eliquis 5 mg. Date of last office visit in primary care: 02/14/2024 Date of next office visit in primary care: Visit date not found Please advise. Thank you. Varsha Byers. documented in this encounter [facility] 02-14-2024 Telephone encounter Note [facility] is calling regarding the Eliquis and stated he has not been taking the med regularly and they need a new script. Patient has been identified by name and date of : Yes Pharmacy phones for refill(s): Eliquis 5 mg. Date of last office visit in primary care: 02/14/2024 Date of next office visit in primary care: Visit date not found Please advise. Thank you. Varsha Byers. [facility] 02-14-2024 Telephone encounter Note 1st attempt to reach for scheduling, left voicemail. Adrian was seen at [facility] today, and Hever referred him to see Pulmonology. He was unable to stay for scheduling but he and his caregiver said they would like to do all the appointments at [place]. Although there are many available times to complete the respiratory tests required for new pulmonology appointments on the same day, there are not any openings where both the respiratory tests and the pulmonology provider appointment are available the same day soon. Lacie Muñoz [facility] 02-14-2024 Miscellaneous Notes 1st attempt to reach for scheduling, left voicemail. Adrian was seen at [facility] today, and Hever referred him to see Pulmonology. He was unable to stay for scheduling but he and his caregiver said they would like to do all the appointments at [place]. Although there are many available times to complete the respiratory tests required for new pulmonology appointments on the same day, there are not any openings where both the respiratory tests and the pulmonology provider appointment are available the same day soon. Lacie Muñoz documented in this encounter [facility] 02-14-2024 Note HNO ID: [id number] Author: HEVER MARTÍNEZ APRN.LABOR SPECIALIST Service: ? Author Type: Nurse Practitioner Type: Progress Notes Filed: 02/14/2024 16:39 Note Text: This note was created using Direct Hit. Subjective Arturo Pedersen is a 83 year old male. 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 Treated for RLL pneumonia at the ER, still taking antibiotic as prescribed. Caregiver reports that the Eliquis wasn't with his other medications, she's not sure how long he's not been taking it. Also doesn't think he's been taking the Lasix. He's having some mild lower leg edema at times, improved with compression stockings. Previously diagnosed with COPD, has never seen pulmonology. Patient usually on 2L of oxygen day and night, sometimes bumps it up to 3. 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 Uses walker for ambulation, sleeps in the chair. Only uses urinal if no one is there to help, otherwise will use the bathroom. Taking Paxil 20 mg daily for anxiety, sometimes takes an extra tablet later in the day if he needs it. The history is provided by the patient and a friend. Review of Systems Constitutional: Negative for fever. Respiratory: Positive for shortness of breath. Negative for cough and wheezing. Cardiovascular: Positive for chest pain. Psychiatric/Behavioral: The patient is nervous/anxious. PAST MEDICAL HISTORY Diagnosis Date CABG CVA [...] HIP FRACTURE(S) Left 11/2017 hip screw placed [facility] ALLERGIES Aspirin, Oxycodone, and Percodan [Oxycodone-Aspirin] MEDICATIONS doxycycline monohydrate (MONODOX) 100 mg capsule Take 100 mg by mouth two times a day. potassium chloride (K-TAB) 10 mEq tablet Take 2 tablets by mouth every morning. levothyroxine (SYNTHROID) 50 mcg tablet Take 1 tablet by mouth once daily. spironolactone (ALDACTONE) 25 mg tablet Take 1 tablet by mouth once daily. atorvastatin (LIPITOR) 40 mg tablet Take 1 tablet by mouth once daily. gabapentin (NEURONTIN) 100 mg capsule Take 2 capsules by mouth two times a day. For neuropathy atenolol (TENORMIN) 50 mg tablet Take 0.5 tablets by mouth once daily. aspirin 81 mg chewable tablet Take 81 mg by mouth once daily. PARoxetine (PAXIL) 40 mg tablet Take 1 tablet by mouth once daily. ELIQUIS 5 mg tab(s) Take 1 tablet by mouth two times a day. (Patient not taking: Reported on 02/14/2024) furosemide (LASIX) 20 mg tablet Take 1 tablet by mouth once daily. (Patient not taking: Reported on 02/14/2024) [DISCONTINUED] mirtazapine (REMERON) 30 mg tablet Take 1 tablet by mouth daily at bedtime. nitroglycerin sublingual (NITROQUICK) 0.3 mg SL tablet Dissolve 1 tablet under the tongue every 5 minutes as needed. FAMILY HISTORY Problem Relation Age of Onset Heart Father Prostate Cancer Father Alzheimer's Disease Mother Social History Tobacco Use Smoking status: Former Current packs/day: 0.00 Average packs/day: 2.0 packs/day for 25.0 years (50.0 ttl pk-yrs) Types: Cigarettes Start date: 10/17/1967 Quit date: 10/16/1992 Years since quittin.3 Smokeless tobacco: Never Vaping Use Vaping status: Never Used Substance Use Topics Alcohol use: No Drug use: No Objective BP 132/78 Pulse 96 Physical Exam Vitals and nursing note reviewed. Constitutional: Appearance: He is well-developed. He is not ill-appearing. Interventions: Nasal cannula in place. Cardiovascular: Rate and Rhythm: Normal rate and regular rhythm. Heart sounds: Normal heart sounds. Pulmonary: Effort: Pulmonary effort is normal. Breath sounds: Decreased air movement present. Examination of the right-lower field reveals rales. Rales (inspiratory) present. No wheezing or rhonchi. Musculoskeletal: Right lower le+ Edema present. Left lower le+ Edema present. Skin: General: Skin is warm and dry. Neurological: Mental Status: He is alert and oriented to person, place, and time. Comments: In wheelchair today, did not witness ambulation Assessment and Plan 1. Pneumonia of right lower lobe due to infectious organism Complete antibiotic as ordered by ER provider. 2. Chronic obstructive pulmonary disease, unspecified COPD type (HCC) Recommend to establish care with college dean, continue oxygen. - CONSULT TO PULMONARY MEDICINE 3. Adjustment disorder with mixed anxiety and depressed mood Increase to 40 mg daily. - PARoxetine (PAXIL) 40 mg tablet; Take 1 tablet by mouth once daily. Dispense: 90 tablet; Refill: 1 4. Paroxysmal atrial fibrillation (HCC) Recommend to repeat labs in 1-2 we (more content not included)... [facility] 02-14-2024 History of Present illness Narrative This note was created using Direct Hit. Subjective Arturo Pedersen is a 83 year old male. 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 Treated for RLL pneumonia at the ER, still taking antibiotic as prescribed. Caregiver reports that the Nanettequjulia wasn't with his other medications, she's not sure how long he's not been taking it. Also doesn't think he's been taking the Lasix. He's having some mild lower leg edema at times, improved with compression stockings. Previously diagnosed with COPD, has never seen pulmonology. Patient usually on 2L of oxygen day and night, sometimes bumps it up to 3. 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 Uses walker for ambulation, sleeps in the chair. Only uses urinal if no one is there to help, otherwise will use the bathroom. Taking Paxil 20 mg daily for anxiety, sometimes takes an extra tablet later in the day if he needs it. The history is provided by the patient and a friend. Review of Systems Constitutional: Negative for fever. Respiratory: Positive for shortness of breath. Negative for cough and wheezing. Cardiovascular: Positive for chest pain. Psychiatric/Behavioral: The patient is nervous/anxious. PAST MEDICAL HISTORY Diagnosis Date CABG CVA [...] HIP FRACTURE(S) Left 11/2017 hip screw placed [facility] ALLERGIES Aspirin, Oxycodone, and Percodan [Oxycodone-Aspirin] MEDICATIONS doxycycline monohydrate (MONODOX) 100 mg capsule Take 100 mg by mouth two times a day. potassium chloride (K-TAB) 10 mEq tablet Take 2 tablets by mouth every morning. levothyroxine (SYNTHROID) 50 mcg tablet Take 1 tablet by mouth once daily. spironolactone (ALDACTONE) 25 mg tablet Take 1 tablet by mouth once daily. atorvastatin (LIPITOR) 40 mg tablet Take 1 tablet by mouth once daily. gabapentin (NEURONTIN) 100 mg capsule Take 2 capsules by mouth two times a day. For neuropathy atenolol (TENORMIN) 50 mg tablet Take 0.5 tablets by mouth once daily. aspirin 81 mg chewable tablet Take 81 mg by mouth once daily. PARoxetine (PAXIL) 40 mg tablet Take 1 tablet by mouth once daily. ELIQUIS 5 mg tab(s) Take 1 tablet by mouth two times a day. (Patient not taking: Reported on 02/14/2024) furosemide (LASIX) 20 mg tablet Take 1 tablet by mouth once daily. (Patient not taking: Reported on 02/14/2024) [DISCONTINUED] mirtazapine (REMERON) 30 mg tablet Take 1 tablet by mouth daily at bedtime. nitroglycerin sublingual (NITROQUICK) 0.3 mg SL tablet Dissolve 1 tablet under the tongue every 5 minutes as needed. FAMILY HISTORY Problem Relation Age of Onset Heart Father Prostate Cancer Father Alzheimer's Disease Mother Social History Tobacco Use Smoking status: Former Current packs/day: 0.00 Average packs/day: 2.0 packs/day for 25.0 years (50.0 ttl pk-yrs) Types: Cigarettes Start date: 10/17/1967 Quit date: 10/16/1992 Years since quittin.3 Smokeless tobacco: Never Vaping Use Vaping status: Never Used Substance Use Topics Alcohol use: No Drug use: No Objective BP 132/78 Pulse 96 Physical Exam Vitals and nursing note reviewed. Constitutional: Appearance: He is well-developed. He is not ill-appearing. Interventions: Nasal cannula in place. Cardiovascular: Rate and Rhythm: Normal rate and regular rhythm. Heart sounds: Normal heart sounds. Pulmonary: Effort: Pulmonary effort is normal. Breath sounds: Decreased air movement present. Examination of the right-lower field reveals rales. Rales (inspiratory) present. No wheezing or rhonchi. Musculoskeletal: Right lower le+ Edema present. Left lower le+ Edema present. Skin: General: Skin is warm and dry. Neurological: Mental Status: He is alert and oriented to person, place, and time. Comments: In wheelchair today, did not witness ambulation Assessment and Plan 1. Pneumonia of right lower lobe due to infectious organism Complete antibiotic as ordered by ER provider. 2. Chronic obstructive pulmonary disease, unspecified COPD type (HCC) Recommend to establish care with college dean, continue oxygen. - CONSULT TO PULMONARY MEDICINE 3. Adjustment disorder with mixed anxiety and depressed mood Increase to 40 mg daily. - PARoxetine (PAXIL) 40 mg tablet; Take 1 tablet by mouth once daily. Dispense: 90 tablet; Refill: 1 4. Paroxysmal atrial fibrillation (HCC) Recommend to repeat labs in 1-2 weeks after re-starting Eliquis and Lasix. - CONSULT TO CARDIOLOGY; Future - COMPLETE BLOOD COUNT; Future - BASIC METABOLIC PANEL; Future 5. Encounter for immunization - INFLUENZA VACCINE, PRSV FREE, AGE 65+ YR, HIGH DOSE, TRIVALENT (FLUZONE HIGH-DOSE) Hever Martínez APRN.LABOR SPECIALIST documented in this encounter [facility] 02-13-2024 Telephone encounter Note Received visit summary for SOB from [facility]. Placed in provider's inbox for review. Route to [place] scanning [facility] 02-13-2024 Miscellaneous Notes Received visit summary for SOB from [facility] ed. Placed in provider's inbox for review. Route to [place] scanning documented in this encounter [facility] 01-02-2024 Telephone encounter Note The following approved medication requests have been transmitted electronically. Requested Prescriptions Signed Prescriptions Disp Refills PARoxetine (PAXIL) 20 mg tablet 30 tablet 5 Sig: Take 1 tablet by mouth once daily. Authorizing Provider: PADDY ZAIDI MD [facility] 01-02-2024 Miscellaneous Notes The following approved medication requests have been transmitted electronically. Requested Prescriptions Signed Prescriptions Disp Refills PARoxetine (PAXIL) 20 mg tablet 30 tablet 5 Sig: Take 1 tablet by mouth once daily. Authorizing Provider: PADDY ZAIDI MD Prescription Refill Information The patient has been identified by name and date of : Yes Caregiver verified no other encounters exist for this prescription request: Yes Caregiver confirmed with patient/requestor that no other refills are due, in the near future, with this provider at this time: Yes The last office visit in the department: 06-07-23 Does the patient have a future office visit with this provider/department: No Requested Prescriptions Pending Prescriptions Disp Refills PARoxetine (PAXIL) 20 mg tablet 30 tablet 5 Sig: Take 1 tablet by mouth once daily. Chayito Thorne December 30, 2023 10:38 AM documented in this encounter [facility] 12-30-2023 Telephone encounter Note Prescription Refill Information The patient has been identified by name and date of : Yes Caregiver verified no other encounters exist for this prescription request: Yes Caregiver confirmed with patient/requestor that no other refills are due, in the near future, with this provider at this time: Yes The last office visit in the department: 06-07-23 Does the patient have a future office visit with this provider/department: No Requested Prescriptions Pending Prescriptions Disp Refills PARoxetine (PAXIL) 20 mg tablet 30 tablet 5 Sig: Take 1 tablet by mouth once daily. Chayito Thorne December 30, 2023 10:38 AM [facility] 12-21-2023 Telephone encounter Note Received annual oxygen rx from [employer]. Placed in provider's inbox for review. Route to [place] fax [facility] 12-21-2023 Miscellaneous Notes Received annual oxygen rx from [employer]. Placed in provider's inbox for review. Route to [place] fax documented in this encounter [facility] 12-01-2023 Telephone encounter Note The following approved medication requests have been transmitted electronically. Requested Prescriptions Signed Prescriptions Disp Refills PARoxetine (PAXIL) 20 mg tablet 30 tablet 5 Sig: Take 1 tablet by mouth once daily. Authorizing Provider: PADDY ZAIDI MD [facility] 12-01-2023 Miscellaneous Notes The following approved medication requests have been transmitted electronically. Requested Prescriptions Signed Prescriptions Disp Refills PARoxetine (PAXIL) 20 mg tablet 30 tablet 5 Sig: Take 1 tablet by mouth once daily. Authorizing Provider: PADDY ZAIDI MD Patient is asking for this to be sent over as soon as possible so he can have someone pick it up for him. Patient has been identified by name and date of : Yes Patient phones for refill(s): Requested Prescriptions Pending Prescriptions Disp Refills PARoxetine (PAXIL) 20 mg tablet 30 tablet 0 Sig: Take 1 tablet by mouth once daily. Date of last office visit in primary care: 06/07/2023 Date of next office visit in primary care: Visit date not found Please advise. Thank you. Varsha Byers. documented in this encounter [facility] 12-01-2023 Telephone encounter Note Patient is asking for this to be sent over as soon as possible so he can have someone pick it up for him. Patient has been identified by name and date of : Yes Patient phones for refill(s): Requested Prescriptions Pending Prescriptions Disp Refills PARoxetine (PAXIL) 20 mg tablet 30 tablet 0 Sig: Take 1 tablet by mouth once daily. Date of last office visit in primary care: 06/07/2023 Date of next office visit in primary care: Visit date not found Please advise. Thank you. Varsha Byers. [facility] 11-29-2023 Telephone encounter Note Prescription Refill Information The patient has been identified by name and date of : Yes Caregiver verified no other encounters exist for this prescription request: Yes Caregiver confirmed with patient/requestor that no other refills are due, in the near future, with this provider at this time: Yes The last office visit in the department: 06/07/2023 Does the patient have a future office visit with this provider/department: No Requested Prescriptions Pending Prescriptions Disp Refills PARoxetine (PAXIL) 20 mg tablet [Pharmacy Med Name: PARoxetine HCl 20 MG Oral Tablet] 30 tablet 0 Sig: Take 1 tablet by mouth once daily Talia Ann LPN November 29, 2023 2:13 PM [facility] 11-29-2023 Miscellaneous Notes Prescription Refill Information The patient has been identified by name and date of : Yes Caregiver verified no other encounters exist for this prescription request: Yes Caregiver confirmed with patient/requestor that no other refills are due, in the near future, with this provider at this time: Yes The last office visit in the department: 06/07/2023 Does the patient have a future office visit with this provider/department: No Requested Prescriptions Pending Prescriptions Disp Refills PARoxetine (PAXIL) 20 mg tablet [Pharmacy Med Name: PARoxetine HCl 20 MG Oral Tablet] 30 tablet 0 Sig: Take 1 tablet by mouth once daily Talia Ann LPN November 29, 2023 2:13 PM documented in this encounter [facility] 09-02-2023 History of Present illness Narrative [facility] NURSE - CHART REVIEW Provider [facility] Action 09/22/2022 presented to non [facility] ED following mechanical fall in home. Documentation of encounter indicates no loss of consciousness, not on blood thinning medication. Xray revealed fracture of distal right fibula Pt identified by name and . Reason for Review: Payor request Patient Attributed To: QAE Payer: KEILA Chart Review For: Utilization: ED Total Patient High CostTotal Patient High Cost {HIGH COST:[id number]) Quality measure review Payor request for assistance Action Taken: No action needed Sarah Robison RN September 02, 2023 11:40 AM documented in this encounter [facility] 08-25-2023 Note HNO ID: [id number] Author: CORRINA COLLAZO, ? Service: ? Author Type: ? Type: Progress Notes Filed: 08/25/2023 15:59 Note Text: [facility] POPULATION HEALTH NAVIGATION OUTREACH Action/FYI Patient needs scheduled for [facility] 03-15-2023 missed Patient Identified by Name and : Yes, via phone Reason for Outreach Care Gap or Scheduling Wellness Visits Care Gap Reviewed:: Annual Wellness visit [facility] Outreach Outcome/Action Unable to reach patient: Left message Population Health Navigation Workflow Chart Review Payer: [employer] Navigation Signature: Corrina Collazo August 25, 2023 3:58 PM [facility] 08-25-2023 History of Present illness Narrative [facility] POPULATION HEALTH NAVIGATION OUTREACH Action/FYI Patient needs scheduled for [facility]. [facility] 03-15-2023 missed Patient Identified by Name and : Yes, via phone Reason for Outreach Care Gap or Scheduling Wellness Visits Care Gap Reviewed:: Annual Wellness visit [facility] Outreach Outcome/Action Unable to reach patient: Left message Population Health Navigation Workflow Chart Review Payer: Keila Navigation Signature: Corrina Collazo August 25, 2023 3:58 PM documented in this encounter [facility] 08-25-2023 Note Patient Outreach (AG AC) ARTURO PEDERSEN ([id number]) 1940 M Date Time Provider Department 08/25/23 CORRINA COLLAZO [place] During your visit today, we recorded the following information about you: Corrina Collazo 08/25/2023 3:59 PM Signed [facility] POPULATION HEALTH NAVIGATION OUTREACH Action/FYI Patient needs scheduled for [facility]. [facility] 03-15-2023 missed Patient Identified by Name and : Yes, via phone Reason for Outreach Care Gap or Scheduling Wellness Visits Care Gap Reviewed:: Annual Wellness visit [facility] Outreach Outcome/Action Unable to reach patient: Left message Population Health Navigation Workflow Chart Review Payer: Keila Sosa Signature: Corrina Collazo August 25, 2023 3:58 PM Allergies As of Date: 08/25/2023 Noted Allergy Reaction ASPIRIN 04/19/2018 16 - Unknown OXYCODONE 04/19/2018 14 - Other: See Comments PERCODAN (OXYCODONE-ASPIRIN) 12/17/2004 1 - Mental Status Change Date Reviewed: 06/07/2023 Reviewed by: Ge Will LPN - Fully Assessed Reason for Visit: Population Health Navigation Outreach [3910] Cmt: [employer] Attributed Member- Needs 2023 Medicare Wellness Appt Scheduled Prescriptions as of 08/25/2023 - potassium chloride (K-TAB) 10 mEq tablet Take 2 tablets by mouth every morning. - levothyroxine (SYNTHROID) 50 mcg tablet Take 1 tablet by mouth once daily. - spironolactone (ALDACTONE) 25 mg tablet Take 1 tablet by mouth once daily. - atorvastatin (LIPITOR) 40 mg tablet Take 1 tablet by mouth once daily. - gabapentin (NEURONTIN) 100 mg capsule Take 2 capsules by mouth two times a day. For neuropathy - atenolol (TENORMIN) 50 mg tablet Take 0.5 tablets by mouth once daily. - ELIQUIS 5 mg tab(s) Take 1 tablet by mouth two times a day. - PARoxetine (PAXIL) 20 mg tablet Take 1 tablet by mouth once daily. - furosemide (LASIX) 20 mg tablet Take 1 tablet by mouth once daily. - escitalopram oxalate (LEXAPRO) 10 mg tablet Take 1 tablet by mouth once daily. - mirtazapine (REMERON) 30 mg tablet (Discontinued) Take 1 tablet by mouth daily at bedtime. - aspirin 81 mg chewable tablet Take 81 mg by mouth once daily. - nitroglycerin sublingual (NITROQUICK) 0.3 mg SL tablet Dissolve 1 tablet under the tongue every 5 minutes as needed. 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] 12/17/2004 Essential hypertension [I10] 12/17/2004 Hyperlipidemia [E78.5] 12/17/2004 PAROX VENTRIC TACHYCARD [I47.29] 01/11/2005 Depression [F32.A] 12/27/2008 Dyspnea [R06.00] 09/04/2009 Acquired hypothyroidism [E03.9] 09/26/2012 Obstructive sleep apnea on CPAP [G47.33] 12/19/2014 Adjustment disorder with mixed anxiety and depr*02/01/2017 Pure hypercholesterolemia [E78.00] 06/12/2018 Idiopathic peripheral neuropathy [G60.9] 06/22/2021 Abnormal electrocardiogram [R94.31] 10/19/2017 Anxiety [F41.9] 12/23/2021 Atherosclerotic heart disease of [place] coron[place]*10/19/2017 Cerebrovascular accident (CVA) (HCC) [I63.9] 12/23/2021 [...] with stent [Z95.820] 12/23/2021 Encounter Status:Closed by CORRINA COLLAZO on 08/25/23 [facility] 08-03-2023 History of Present illness Narrative POPULATION HEALTH NAVIGATION OUTREACH Action/FYI Contacted patient to schedule [employer] Annual Wellness Visit, care gaps and HCCs due. 1st attempt: Left message with my direct number Reason for Outreach Care Gap/HCC or Scheduling Wellness Visits Care Gaps due: Medicare Annual Wellness Visit Patient Contacted: Unable or unnecessary to reach patient: Left message HCC related Navigation Signature: Elenita Dey MA August 03, 2023 1:42 PM documented in this encounter [facility] 07-11-2023 Telephone encounter Note Adrian is calling Paddy Zaidi MD today with concern regarding Medication Request Disp Refills Start End potassium chloride (K-TAB) 10 mEq tablet 180 tablet 3 05/21/2022 08/19/2022 Sig: Take 2 tablets by mouth every morning. Sent to pharmacy as: potassium chloride (K-TAB) 10 mEq tablet Class: Normal [facility] [place]. No need to call patient if sent to pharmacy. Thank you. Patient has been identified by name and birthdate. Duration of symptoms: N/A Person calling: self Call patient at: on cell [phone] (home) [phone] (cell) Was an appointment scheduled: No Closing statement: Results or non-symptom based questions: Thank you for calling [facility], your call will be returned within the next business day. Isabell Riggins [facility] 07-11-2023 Miscellaneous Notes Adrian is calling Paddy Zaidi MD today with concern regarding Medication Request Disp Refills Start End potassium chloride (K-TAB) 10 mEq tablet 180 tablet 3 05/21/2022 08/19/2022 Sig: Take 2 tablets by mouth every morning. Sent to pharmacy as: potassium chloride (K-TAB) 10 mEq tablet Class: Normal [facility] [place]. No need to call patient if sent to pharmacy. Thank you. Patient has been identified by name and birthdate. Duration of symptoms: N/A Person calling: self Call patient at: on cell [phone] (home) [phone] (cell) Was an appointment scheduled: No Closing statement: Results or non-symptom based questions: Thank you for calling [facility], your call will be returned within the next business day. Isabell Riggins documented in this encounter [facility] 07-11-2023 Telephone encounter Note Patient has been identified by name and date of : Yes, Provider Dr. Zaidi Date 07-11-23 Time 11;26 am Patient phones for refill(s): Requested Prescriptions Pending Prescriptions Disp Refills spironolactone (ALDACTONE) 25 mg tablet 90 tablet 3 Sig: Take 1 tablet by mouth once daily. levothyroxine (SYNTHROID) 50 mcg tablet 90 tablet 3 Sig: Take 1 tablet by mouth once daily. Date of last office visit in primary care: 06/07/2023 Date of next office visit in primary care: Visit date not found Please advise. Thank you. Isabell Riggins. [facility] 07-11-2023 Miscellaneous Notes Patient has been identified by name and date of : Yes, Provider Dr. Zaidi Date 07-11-23 Time 11;26 am Patient phones for refill(s): Requested Prescriptions Pending Prescriptions Disp Refills spironolactone (ALDACTONE) 25 mg tablet 90 tablet 3 Sig: Take 1 tablet by mouth once daily. levothyroxine (SYNTHROID) 50 mcg tablet 90 tablet 3 Sig: Take 1 tablet by mouth once daily. Date of last office visit in primary care: 06/07/2023 Date of next office visit in primary care: Visit date not found Please advise. Thank you. Isabell Riggins. documented in this encounter [facility] 06-13-2023 Telephone encounter Note Called and notified pt. Pt indicated understanding. [facility] 06-13-2023 Miscellaneous Notes Called and notified pt. Pt indicated understanding. Kidney, liver function and glucose are normal. Hba1c well within normal range (no diabetes) Lipid results: Triglycerides within optimal range. HDL good cholesterol is in acceptable range. This can be improved with exercise. Target for HDL cholesterol is >45 mg/dl. LDL cholesterol below 70 is considered optimal. Excellent result. Thyroid stimulating hormone is in normal range, indicating adequate thyroid replacement. Continue the current dose. Blood count is normal. Paddy Zaidi MD documented in this encounter [facility] 06-13-2023 Telephone encounter Note Kidney, liver function and glucose are normal. Hba1c well within normal range (no diabetes) Lipid results: Triglycerides within optimal range. HDL good cholesterol is in acceptable range. This can be improved with exercise. Target for HDL cholesterol is >45 mg/dl. LDL cholesterol below 70 is considered optimal. Excellent result. Thyroid stimulating hormone is in normal range, indicating adequate thyroid replacement. Continue the current dose. Blood count is normal. Paddy Zaidi MD [facility] 06-07-2023 History of Present illness Narrative CHIEF COMPLAINT Patient presents with: Follow Up HISTORY OF PRESENT ILLNESS Arturo Pedersen is a 82 year old male who presents here today for follow up. I last saw this patient on 05/21/2022. Feet - Bothersome - Endorses swelling, onset yesterday Respiratory - Has difficulty breathing - States that he went to the clinic yesterday for blood work and he could hardly walk to the car, had to put on oxygen and took him 20 minutes to catch his breath - Admits to some wheezing -Last 3 Encounter Wt Readings: Date: Wt: 06/07/2023 98 kg (216 lb 0.8 oz) 06/02/2022 93 kg (205 lb) 05/21/2022 88.2 kg (194 lb 8 oz) Anxiousness - Currently managed on lexapro 10 mg once daily - States that he is taking three tablets Health Maintenance Due for Spirometry Due for DTaP, Tdap, Td Vaccine (1- Tdap) Due for Shingrix Vaccine (1 of 2) Due for RSV Vaccine (1-1 dose 60+ series) Due for Covid-19 Vaccine (3- 2023-24 season) Due for Advance Directive Discussion Labs reviewed. Past medical history, appointments, medications, allergies reviewed. REVIEW OF SYSTEMS General: Feels well, +weight gain, no fevers or chills. HEENT: No sinus congestion, earache, sore throat. Cardiac: No chest pain, palpitations Resp: No cough, +wheeze, +shortness of breath GI: No reflux symptoms, food intolerance, bowel changes. : No urinary frequency, dysuria. MS: No pain or joint complaints. Extremities: +pedal swelling Psych: +anxiety PAST MEDICAL HISTORY PAST MEDICAL HISTORY Diagnosis Date CABG CVA (cerebral infarction) 04/16/14 Depression GERD (gastroesophageal reflux disease) Neuropathy Other and unspecified hyperlipidemia Prostate cancer (HCC) Unspecified essential hypertension PHYSICAL EXAMINATION BP 138/80 Pulse 82 Ht 180.3 cm (5' 10.98) Wt 98 kg (216 lb 0.8 oz) SpO2 95% BMI 30.15 kg/m General: Alert, well developed, well nourished, no distress, pleasant and cooperative. Obese. Heart: Regular rate and rhythm. Normal S1 and S2. No murmurs, rubs, or gallops. Lungs: Clear to auscultation bilaterally. No respiratory distress. No wheezes, rales, or rhonchi. Abdomen: Soft, non-tender, no distention. Extremities: Feet/ankles without edema, posterior tibial pulses full and symmetrical. Data Reviewed Latest Ref Rng 06/06/2023 Protein, Total 6.3 - 8.0 g/dL 7.0 Albumin 3.9 - 4.9 g/dL 4.2 Calcium 8.5 - 10.2 mg/dL 9.8 Bilirubin, Total 0.2 - 1.3 mg/dL 1.2 Alkaline Phosphatase 38 - 113 U/L 123 (H) AST 14 - 40 U/L 10 (L) ALT 10 - 54 U/L 9 (L) Glucose 74 - 99 mg/dL 101 (H) BUN 9 - 24 mg/dL 21 Creatinine 0.73 - 1.22 mg/dL 0.67 (L) Sodium 136 - 144 mmol/L 142 Potassium 3.7 - 5.1 mmol/L 4.0 Chloride 97 - 105 mmol/L 103 CO2 22 - 30 mmol/L 30 Anion Gap 9 - 18 mmol/L 9 eGFR >=60 mL/min/1.73m 93 WBC 3.70 - 11.00 k/uL 8.52 RBC 4.20 - 6.00 m/uL 4.28 Hemoglobin 13.0 - 17.0 g/dL 13.5 Hematocrit 39.0 - 51.0 % 42.3 MCV 80.0 - 100.0 fL 98.8 MCH 26.0 - 34.0 pg 31.5 MCHC 30.5 - 36.0 g/dL 31.9 RDW-CV 11.5 - 15.0 % 12.9 Platelet Count 150 - 400 k/uL 151 MPV 9.0 - 12.7 fL 9.4 Absolute nRBC <0.01 k/uL <0.01 Cholesterol, Total <200 mg/dL 123 Triglyceride <150 mg/dL 69 HDL Cholesterol >39 mg/dL 47 Non HDL Cholesterol <130 mg/dL 76 Fasting Time hrs 14 VLDL Cholesterol <30 mg/dL 14 TC:HDL Ratio <5.10 2.62 LDL Cholesterol <100 mg/dL 62 LDL:HDL Ratio <2.54 1.32 Hemoglobin A1C 4.3 - 5.6 % 5.0 Estimated Average Glucose mg/dL 97 TSH 0.270 - 4.200 mIU/L 1.200 Legend: (H) High (L) Low Assessment/Plan (I25.729) 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 In need of refills Plan: spironolactone (ALDACTONE) 25 mg tablet, atenolol (TENORMIN) 50 mg tablet Continue current regimen (E78.2) Mixed hyperlipidemia Comment: Well managed. In need of refill Plan: atorvastatin (LIPITOR) 40 mg tablet (G62.9) Peripheral polyneuropathy Comment: In need of refill Plan: gabapentin (NEURONTIN) 100 mg capsule (R06.02) SOB (shortness of breath) Comment: Ongoing, has been using oxygen therapy as needed. Also experiencing pedal edema. Concerns for congestive heart failure, will obtain chest xray. Plan: XR CHEST 2V FRONTAL/LAT Start furosemide (LASIX) 20 mg tablet Requested Prescriptions Signed Prescriptions Disp Refills levothyroxine (SYNTHROID) 50 mcg tablet 90 tablet 3 Sig: Take 1 tablet by mouth once daily. spironolactone (ALDACTONE) 25 mg tablet 90 tablet 3 Sig: Take 1 tablet by mouth once daily. atorvastatin (LIPITOR) 40 mg tablet 90 tablet 3 Sig: Take 1 tablet by mouth once daily. gabapentin (NEURONTIN) 100 mg capsule 360 capsule 3 Sig: Take 2 capsules by mouth two times a day. For neuropathy atenolol (TENORMIN) 50 mg tablet 90 tablet 3 Sig: Take 0.5 tablets by mouth once daily. ELIQUIS 5 mg tab(s) 180 tablet 3 Sig: Take 1 tablet by mouth two times a day. PARoxetine (PAXIL) 20 mg tablet 30 tablet 5 Sig: Take 1 tablet by mouth once daily. furosemide (LASIX) 20 mg tablet 30 tablet 2 Sig: Take 1 tablet by mouth once daily. RTO: 6 months Scribe Attestation: By signing my name below, Kleber Loco, attest that this documentation has been prepared under the direction and in the presence of Shayne Zaidi M.D. Electronically Signed: Yousif Ayers. June 07, 2023 4:35 PM Provider Attestation: Paddy Loco MD, personally performed the services described in this documentation. All medical record entries made by the scribe were at my direction and in my telephonic presence. I have reviewed the chart and discharge instructions (if applicable), and agree that the record reflects my personal performance and is accurate and complete. Electronically Signed: Paddy Zaidi MD June 15, 2023 9:45 AM documented in this encounter [facility] 06-03-2023 Telephone encounter Note Called patient. He has an appointment but it is not until mid-June for a wellness visit, but the patient would like to discuss issues such as his anxiety and his oxygen. Scheduled patient for an acute visit on TuesdayJune 06, and advised it would be ideal if he could get to a lab prior to that for fasting labs. Patient states he will try. Also kept the Wellness visit scheduled. He wears oxygen at 3 L/min most of the time. On room air he gets to about 92% SpO2 then he puts on the oxygen and it goes up to 97%. The patient states the size of his oxygen tanks limit his ability to leave home. Called [facility] at [phone]. Patient currently has the full size home concentrator and also full size portable tanks with the wheeled carts. They do have mini tanks as well that they can dispense with a prescription. They also have a portable oxygen concentrator which would need to be through insurance, they would need the 6 minute walk test or overnight pulse oximetry study to see if he would qualify, with chart notes and a prescription faxed over. In the meantime if he wants to use the mini tanks while he is waiting to see if he qualifies they would just need an order faxed over. [facility] 06-03-2023 Miscellaneous Notes Called patient. He has an appointment but it is not until mid-June for a wellness visit, but the patient would like to discuss issues such as his anxiety and his oxygen. Scheduled patient for an acute visit on TuesdayJune 06, and advised it would be ideal if he could get to a lab prior to that for fasting labs. Patient states he will try. Also kept the Wellness visit scheduled. He wears oxygen at 3 L/min most of the time. On room air he gets to about 92% SpO2 then he puts on the oxygen and it goes up to 97%. The patient states the size of his oxygen tanks limit his ability to leave home. Called [facility] at [phone]. Patient currently has the full size home concentrator and also full size portable tanks with the wheeled carts. They do have mini tanks as well that they can dispense with a prescription. They also have a portable oxygen concentrator which would need to be through insurance, they would need the 6 minute walk test or overnight pulse oximetry study to see if he would qualify, with chart notes and a prescription faxed over. In the meantime if he wants to use the mini tanks while he is waiting to see if he qualifies they would just need an order faxed over. LM for patient to have fasting labs drawn. Patient has medicare wellness appt 06/23/2023 Overdue for lab and visit. Order placed Refill on 05/27/23 COMPREHENSIVE METABOLIC PANEL HEMOGLOBIN A1C THYROID STIMULATING HORMONE LIPID PANEL BASIC COMPLETE BLOOD COUNT The following approved medication requests have been transmitted electronically. Requested Prescriptions Signed Prescriptions Disp Refills levothyroxine (SYNTHROID) 50 mcg tablet 30 tablet 0 Sig: Take 1 tablet by mouth once daily. Authorizing Provider: PADDY ZAIDI spironolactone (ALDACTONE) 25 mg tablet 30 tablet 0 Sig: Take 1 tablet by mouth once daily. Authorizing Provider: PADDY ZAIDI escitalopram oxalate (LEXAPRO) 10 mg tablet 30 tablet 0 Sig: Take 1 tablet by mouth once daily. Authorizing Provider: PADDY ZAIDI atorvastatin (LIPITOR) 40 mg tablet 30 tablet 0 Sig: Take 1 tablet by mouth once daily. Authorizing Provider: PADDY ZAIDI gabapentin (NEURONTIN) 100 mg capsule 120 capsule 0 Sig: Take 2 capsules by mouth two times a day for 180 days. For neuropathy Authorizing Provider: PADDY ZAIDI MD Pharmacy verified in Epic Patient has been identified by name and date of : Yes Patient aware RX will be sent to pharmacy. No need to notify patient. Pharmacy phones for refill(s): Requested Prescriptions Pending Prescriptions Disp Refills levothyroxine (SYNTHROID) 50 mcg tablet 90 tablet 2 Sig: Take 1 tablet by mouth once daily. spironolactone (ALDACTONE) 25 mg tablet 90 tablet 3 Sig: Take 1 tablet by mouth once daily. escitalopram oxalate (LEXAPRO) 10 mg tablet 90 tablet 0 Sig: Take 1 tablet by mouth once daily. atorvastatin (LIPITOR) 40 mg tablet 90 tablet 2 Sig: Take 1 tablet by mouth once daily. gabapentin (NEURONTIN) 100 mg capsule 120 capsule 5 Sig: Take 2 capsules by mouth two times a day for 180 days. For neuropathy Date of last office visit : 06/02/2022 Date of next office visit : 06/23/2023 Last 2 Encounter Wt Readings: Date: Wt: 06/02/2022 93 kg (205 lb) 05/21/2022 88.2 kg (194 lb 8 oz) Thyroid: TSH Date Value 05/21/2022 1.440 mIU/L 12/17/2020 2.970 uU/mL Cholesterol: Triglyceride (mg/dL) Date Value 05/21/2022 80 12/17/2020 67 HDL Cholesterol (mg/dL) Date Value 05/21/2022 39 12/17/2020 52 LDL Cholesterol (mg/dL) Date Value 05/21/2022 60 12/17/2020 70 ALT (U/L) Date Value 05/21/2022 9 12/17/2020 25 Non HDL Cholesterol (mg/dL) Date Value 05/21/2022 76 12/17/2020 83 Blood Pressure: BUN (mg/dL) Date Value 05/21/2022 26 12/17/2020 28 Creatinine (mg/dL) Date Value 05/21/2022 0.83 12/17/2020 0.85 Sodium (mmol/L) Date Value 05/21/2022 142 12/17/2020 140 Potassium (mmol/L) Date Value 05/21/2022 4.8 12/17/2020 5.2 Last 1 Encounter BP Readings: Date: BP: 06/02/2022 134/68 Please advise. Talia Ann LPN Please also refill Potassium Chloride (Klor-Con) that is not in refill list. Please refill today as patient will be out over the weekend. Patient has been identified by name and date of : Yes Requested Prescriptions Pending Prescriptions Disp Refills levothyroxine (SYNTHROID) 50 mcg tablet 90 tablet 2 Sig: Take 1 tablet by mouth once daily. spironolactone (ALDACTONE) 25 mg tablet 90 tablet 3 Sig: Take 1 tablet by mouth once daily. escitalopram oxalate (LEXAPRO) 10 mg tablet 90 tablet 0 Sig: Take 1 tablet by mouth once daily. atorvastatin (LIPITOR) 40 mg tablet 90 tablet 2 Sig: Take 1 tablet by mouth once daily. gabapentin (NEURONTIN) 100 mg capsule 120 capsule 5 Sig: Take 2 capsules by mouth two times a day for 180 days. For neuropathy RX INSTRUCTIONS: Patient aware RX will be sent to [facility] pharmacy. No need to notify patient. Varsha Byers documented in this encounter [facility] 05-30-2023 Telephone encounter Note LM for patient to have fasting labs drawn. Patient has medicare wellness appt 06/23/2023 [facility] 05-27-2023 Telephone encounter Note Overdue for lab and visit. Order placed Refill on 05/27/23 COMPREHENSIVE METABOLIC PANEL HEMOGLOBIN A1C THYROID STIMULATING HORMONE LIPID PANEL BASIC COMPLETE BLOOD COUNT The following approved medication requests have been transmitted electronically. Requested Prescriptions Signed Prescriptions Disp Refills levothyroxine (SYNTHROID) 50 mcg tablet 30 tablet 0 Sig: Take 1 tablet by mouth once daily. Authorizing Provider: PADDY ZAIDI spironolactone (ALDACTONE) 25 mg tablet 30 tablet 0 Sig: Take 1 tablet by mouth once daily. Authorizing Provider: PADDY ZAIDI escitalopram oxalate (LEXAPRO) 10 mg tablet 30 tablet 0 Sig: Take 1 tablet by mouth once daily. Authorizing Provider: PADDY ZAIDI atorvastatin (LIPITOR) 40 mg tablet 30 tablet 0 Sig: Take 1 tablet by mouth once daily. Authorizing Provider: PADDY ZAIDI gabapentin (NEURONTIN) 100 mg capsule 120 capsule 0 Sig: Take 2 capsules by mouth two times a day for 180 days. For neuropathy Authorizing Provider: PADDY ZAIDI MD [facility] 05-27-2023 Telephone encounter Note Pharmacy verified in Epic Patient has been identified by name and date of : Yes Patient aware RX will be sent to pharmacy. No need to notify patient. Pharmacy phones for refill(s): Requested Prescriptions Pending Prescriptions Disp Refills levothyroxine (SYNTHROID) 50 mcg tablet 90 tablet 2 Sig: Take 1 tablet by mouth once daily. spironolactone (ALDACTONE) 25 mg tablet 90 tablet 3 Sig: Take 1 tablet by mouth once daily. escitalopram oxalate (LEXAPRO) 10 mg tablet 90 tablet 0 Sig: Take 1 tablet by mouth once daily. atorvastatin (LIPITOR) 40 mg tablet 90 tablet 2 Sig: Take 1 tablet by mouth once daily. gabapentin (NEURONTIN) 100 mg capsule 120 capsule 5 Sig: Take 2 capsules by mouth two times a day for 180 days. For neuropathy Date of last office visit : 06/02/2022 Date of next office visit : 06/23/2023 Last 2 Encounter Wt Readings: Date: Wt: 06/02/2022 93 kg (205 lb) 05/21/2022 88.2 kg (194 lb 8 oz) Thyroid: TSH Date Value 05/21/2022 1.440 mIU/L 12/17/2020 2.970 uU/mL Cholesterol: Triglyceride (mg/dL) Date Value 05/21/2022 80 12/17/2020 67 HDL Cholesterol (mg/dL) Date Value 05/21/2022 39 12/17/2020 52 LDL Cholesterol (mg/dL) Date Value 05/21/2022 60 12/17/2020 70 ALT (U/L) Date Value 05/21/2022 9 12/17/2020 25 Non HDL Cholesterol (mg/dL) Date Value 05/21/2022 76 12/17/2020 83 Blood Pressure: BUN (mg/dL) Date Value 05/21/2022 26 12/17/2020 28 Creatinine (mg/dL) Date Value 05/21/2022 0.83 12/17/2020 0.85 Sodium (mmol/L) Date Value 05/21/2022 142 12/17/2020 140 Potassium (mmol/L) Date Value 05/21/2022 4.8 12/17/2020 5.2 Last 1 Encounter BP Readings: Date: BP: 06/02/2022 134/68 Please advise. Talia Ann LPN [facility] 05-27-2023 Telephone encounter Note Please also refill Potassium Chloride (Klor-Con) that is not in refill list. Please refill today as patient will be out over the weekend. Patient has been identified by name and date of : Yes Requested Prescriptions Pending Prescriptions Disp Refills levothyroxine (SYNTHROID) 50 mcg tablet 90 tablet 2 Sig: Take 1 tablet by mouth once daily. spironolactone (ALDACTONE) 25 mg tablet 90 tablet 3 Sig: Take 1 tablet by mouth once daily. escitalopram oxalate (LEXAPRO) 10 mg tablet 90 tablet 0 Sig: Take 1 tablet by mouth once daily. atorvastatin (LIPITOR) 40 mg tablet 90 tablet 2 Sig: Take 1 tablet by mouth once daily. gabapentin (NEURONTIN) 100 mg capsule 120 capsule 5 Sig: Take 2 capsules by mouth two times a day for 180 days. For neuropathy RX INSTRUCTIONS: Patient aware RX will be sent to [facility] pharmacy. No need to notify patient. Varsha Byers [facility] 04-15-2023 History of Present illness Narrative POPULATION HEALTH NAVIGATION OUTREACH [facility] Discuss/Due for: Medicare Wellness, MyChart Activation Patient over 75, no need to discuss Care Gaps Outcome: 1st attempt - Spoke to patient Scheduled Medicare Wellness Patient declined MyChart Activation Reason for Outreach Care Gap/HCC or Scheduling Wellness Visits Care Gaps due: Medicare Annual Wellness Visit Patient Contacted: Spoke to patient/parent/or legal guardian Patient identified by name and : Yes Care Gap/HCC/Scheduling Wellness actions taken: Patient scheduled/pended labs: Medicare Annual Wellness Visit 06/23/2023 in [facility] with PADDY ZAIDI - MEDICARE WELLNESS Z00.00, HCC GAP CLOSURE HCC related Navigation Signature: Corrina Barakat MA April 15, 2023 11:52 AM documented in this encounter [facility] 04-08-2023 Miscellaneous Notes The following approved medication requests have been transmitted electronically. Requested Prescriptions Signed Prescriptions Disp Refills escitalopram oxalate (LEXAPRO) 10 mg tablet 90 tablet 0 Sig: Take 1 tablet by mouth once daily Authorizing Provider: PADDY ZAIDI MD Pharmacy verified in Epic Patient has been identified by name and date of : Yes Patient aware RX will be sent to pharmacy. No need to notify patient. Pharmacy phones for refill(s): Requested Prescriptions Pending Prescriptions Disp Refills escitalopram oxalate (LEXAPRO) 10 mg tablet [Pharmacy Med Name: Escitalopram Oxalate 10 MG Oral Tablet] 90 tablet 0 Sig: Take 1 tablet by mouth once daily Date of last office visit : 06/02/2022 Date of next office visit : Visit date not found Last 2 Encounter Wt Readings: Date: Wt: 06/02/2022 93 kg (205 lb) 05/21/2022 88.2 kg (194 lb 8 oz) Please advise. Gabrielle Rosenthal MA documented in this encounter [facility] 03-18-2023 Miscellaneous Notes Received visit summary, labs, imaging, EKG for SOB from [facility]. Placed in provider's inbox for review. Route to [place] scanning. documented in this encounter [facility] 03-15-2023 Discharge summary Note Date/Time March 15, 2023 1:58pm [facility] Medical Records Department [address] [place] [address] [place] [address] Emergency Department Summary 03/15/23 MR#: [id number] Acct: [id number] Name: ARTURO PEDERSEN Rep #:[id number] : 1940 82 From: Parker Metzger MD PCP: Dr. Shayne Zaidi MD Status:REG ER Location: ED HPI History of Present Illness Chief Complaint: Shortness of Breath Detail of Chief Complaint: Shortness of breath, cough, wheezing worse since lastnight. Also diarrhea Informant: patient and family Onset/Context/Timing Onset: Yesterday Context: gradual and exertion Timing: Continuous and Waxes and wanes Quality: Positive for Dyspnea on exertion and Wheezing; Negative for Orthopnea or PND Current Severity: Mild Maximum Severity: Severe Worsened by: Exertion and Coughing; Not Worsened By Lying flat Relieved by: Nothing Associated Symptoms cough, rhinorrhea, sore throat, subjective, chills and clear sputum; Negative for post nasal drip, ear pain, fever or sweats Chest Pain: Positive for None Narrative Narrative: Patient is an 82-year-old male with 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 He is able to walk across the room before becoming short of breath. Prior to his illness he was able to walk twice as far. He is not on oxygen at home. He denies any ill contacts. He does complain of subjective fever with chills. He does endorse rhinorrhea, congestion and sore throat. His cough is productive of clear sputum. He denies hemoptysis. He denies history of PE or DVT. He has chronic swelling of his right leg due to prior fracture. He does report nausea without vomiting. He is also had diarrhea since last evening. He denies headache, visual, ocular auditory symptoms. He denies chest pain, orthopnea or PND. He denies blood or mucus in his diarrhea. He denies black stool or maroon-colored stool. 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) Hoarseness HTN (hypertension) left vocal cord paralysis Prostate CA Stage 2 moderate COPD by GOLD classification Stroke Home Medications levothyroxine 50 mcg tablet 50 mcg PO DAILY thyroid 07/25/19 [History Last Taken 12/14/21] amlodipine 5 mg tablet 5 mg PO DAILY bp 07/28/19 [History Last Taken Unknown] atorvastatin 40 mg tablet 40 mg PO QHS cholesterol 07/28/19 [History Last Taken 12/14/21] spironolactone 25 mg tablet 25 mg PO DAILY diuretic 07/28/19 [History Last Taken 12/14/21] aspirin 81 mg chewable tablet 81 mg PO DAILY@0800 health 12/14/21 [History Last Taken 12/14/21] atenolol 50 mg tablet 50 mg PO DAILY bp 12/14/21 [History Last Taken 12/14/21] clopidogrel 75 mg tablet 75 mg PO DAILY blood thinner 12/14/21 [History Last Taken Unknown] escitalopram oxalate 20 mg tablet 20 mg PO DAILY depression 12/14/21 [History Last Taken 12/14/21] gabapentin 100 mg capsule 200 mg PO QHS foot pain 12/14/21 [History Last Taken 12/14/21] potassium chloride 10 mEq tablet,extended release 20 meq PO DAILY supplement 12/14/21 [History Last Taken 12/14/21] acetaminophen 500 mg tablet 1,000 mg PO Q6H PRN Pain Score 1-10 12/28/21 [History Last Taken Unknown] docusate sodium 100 mg capsule (DOK) 100 mg PO DAILY #20 CAPSULES 09/22/22 [Rx Last Taken Unknown] tramadol 50 mg tablet 50 mg PO Q4H PRN PRN Pain 3 days #20 tabs 09/22/22 [Rx Last Taken Unknown] albuterol sulfate 90 mcg/actuation aerosol inhaler (Ventolin HFA) 2 puff inhalation Q4H PRN PRN Wheezing ##1 03/15/23 [Rx Last Taken Unknown] doxycycline monohydrate 100 mg capsule 100 mg PO BID #10 CAPSULES 03/15/23 [Rx Last Taken Unknown] ipratropium bromide 17 mcg/actuation HFA aerosol inhaler (Atrovent HFA) 2 puff inhalation Q8H #12.9 grams 03/15/23 [Rx Last Taken Unknown] prednisone 20 mg tablet 60 mg (3 x 20 mg) PO DAILY #15 TABLETS 03/15/23 [Rx Last Taken Unknown] Allergy/AdvReac Type Severity Reaction Status Date / Time oxycodone [From Percodan] Allergy Other Verified 03/15/23 13:19 Surgical History Cataract extraction status History of coronary artery stent placement (12/16/21) History of hip replacement History of open heart surgery Social History Smoking Status: Former smoker quit date: 02/08/92 pack-years: 37 Tobacco: How many years used: 20 alcohol intake: never substance use type: does not use ROS ROS ED Constitutional Constitutional ED: Reports chills, fever(s) and other Details: Fever is subjective. ; Denies sweats or weight loss Eyes Eyes: Denies blurry vision, change in vision or diplopia ENT ENT ED: Reports rhinorrhea; Denies ear pain Cardiovascular Cardiovascular: Reports palpitations; Denies chest pain, orthopnea, paroxysmal nocturnal dyspnea or racing heartbeat Respiratory/Chest Respiratory/Chest: Reports cough, dyspnea, dyspnea on exertion and sputum; Denies orthopnea or paroxysmal nocturnal dyspnea Gastrointestinal Gastrointestinal: Reports abdominal pain, diarrhea and nausea; Denies constipation, melena or vomiting Genitourinary Genitourinary ED: Denies dysuria, hematuria or urinary frequency Musculoskeletal Musculoskeletal: Reports arthralgias and myalgias; Denies back pain or neck pain Integumentary Denies rash Neurologic Neurologic: Denies weakness Psychiatric Psychiatric: Denies anxiety or depression Endocrine Endocrinology: Denies cold intolerance, heat intolerance, polydipsia or polyuria Hematologic/Lymphatic Hematologic/Lymphatic: Denies easy bleeding EXAM Physical Exam Const Vital Signs: 03/15/23 13:17 03/15/23 14:07 03/15/23 14:11 Temperature 98.5 F Temperature Source Temporal Pulse Rate 117 H 101 H Respiratory Rate 25 H 23 H Respiratory Effort Short of Breath Blood Pressure 153/94 H Blood Pressure Mean 113 Pulse Ox 96 94 Oxygen Delivery Method Room Air 03/15/23 14:07 Temperature Temperature Source Pulse Rate 103 H Respiratory Rate 25 H Respiratory Effort Blood Pressure Blood Pressure Mean Pulse Ox Oxygen Delivery Method Positive well nourished and well developed Constitutional Narrative: Patient appears ill. He is tachycardic and tachypneic. There is use of accessory muscles. General Appearance ED: well developed and pallor; Negative for NAD HEENT Reports dry mucous membranes HEENT Narrative: Uvula is midline. There is no deviation with protrusion. Ears are normal. Nares patent with clear discharge. atraumatic Mouth ED: Yes dry mucous membranes Mouth: dry mucous membranes Eyes PERRL and EOMs intact bilaterally General Eye ED: Negative for pale conjunctiva or scleral icterus Neck no lymphadenopathy, supple, no meningeal signs and no JVD Neck Narrative: Trachea is midline. Neck is supple. There is no stridor. Resp No normal respiratory effort and No clear to auscultation bilaterally Resp Narrative: There is increased expiratory phase. There is decreased air movement. Auscultation: rales bilateral lower and wheezes expiratory wheezes, scattered wheezes and throughout Cardio regular rhythm, S1 normal heart sound and S2 normal heart sound Rate: tachycardic GI non-tender and no masses; Negative for non-distended Palpation: soft Back/Spine no CVA tenderness and normal to inspection Extremity normal to inspection Neuro oriented x3 and CN's II-XII intact bilaterally Miguel Coma Scale: document GCS findings Spontaneous Obeys Commands Oriented 15 Psych mental status grossly normal Skin no wounds and No skin turgor normal General Skin Exam: pallor; Negative for jaundice MDM MDM MDM Narrative Medical decision making narrative: Differential diagnosis is exacerbated COPD, viral illness exacerbating COPD, pneumonia exacerbating COPD, congestive heart failure causing wheezing and rales. EKG was obtained to rule out acute ischemic changes. CBC was obtained to assess for anemia and white count. Competence metabolic panel lactate were obtained to assess for endorgan dysfunction. History & Record Review Additional record(s) reviewed:: Prior inpatient record (2021 for exacerbation ofCOPD.), Prior ED visit (For COPD exacerbation, fatigue and hip fracture.) and Prior labs Lab Data Attestation: I reviewed the patient's lab results. Lab results narrative: White count is unremarkable. There is a slight shift. Competence metabolic panel was elevated BUN to creatinine ratio of 28:1. BUN is 21 with a creatinine0.7. Transaminases normal. Lactate is normal at 1.7. Labs: Laboratory Results - last 24 hr 03/15/23 14:00 WBC 9.1 RBC 4.29 L Hgb 13.1 Hct 42.9 MCV 100.0 H MCH 30.5 MCHC 30.5 L RDW Std Deviation 48.4 H RDW Coeff of Erica 13.2 Plt Count 135 L MPV 9.9 Immature Gran % (Auto) 0.700 Neut % (Auto) 80.9 H Lymph % (Auto) 8.8 L Hamblen % (Auto) 6.8 Eos % (Auto) 2.1 Baso % (Auto) 0.7 Absolute Neuts (auto) 7.4 Absolute Lymphs (auto) 0.80 L Nucleated RBC % 0 Sodium 137 Potassium 4.0 Chloride 107 Carbon Dioxide 28.0 Anion Gap 2 L BUN 21 H Creatinine 0.74 Estim Creat Clear Calc 83.26 Est GFR (MDRD) Af Amer 131 Est GFR (MDRD) Non-Af 108 BUN/Creatinine Ratio 28.5 H Glucose 110 H Lactic Acid 1.7 Calcium 8.6 Total Bilirubin 0.60 AST 11 L ALT 20 Alkaline Phosphatase 116 Total Protein 7.0 Albumin 3.5 Globulin 3.5 Albumin/Globulin Ratio 1.0 Radiography Chest X-Ray - ED: 1 View and Read by ED Physician (Elevated right hemidiaphragm with blunting of the costophrenic angle and atelectasis. The right hemidiaphragm is chronically elevated. There is no increased volume loss. Right heart border is 6 GERD. If perihilar region is normal. Osseous structures are normal. This independent reviewed interp) Diagnostic Testing: Clinical Impression(s) from Imaging Studies Chest X-Ray 03/15/23 13:43 IMPRESSION: Stable elevation of the right hemidiaphragm with blunting of the right costophrenic angle and increased markings at the right lung base suggestive of atelectasis. Electronically Signed: Domingo Little MD at 14:57 EST , EKG Initial EKG: Attestation: I personally reviewed and interpreted this EKG as follows: Interpretation: Atrial Fibrillation (Rate is 96. QS duration 70 ms, QT duration 334 ms. [place] is normal.) Treatment and Re-Evaluation :: Patient was reassessed at 1550. Patient has slight wheezing on the right side only. Patient is tachycardic but he is no longer tachypneic. Plan is discharge. Albuterol MDI, Atrovent MDI and burst of prednisone. Since he does have a productive cough will treat with short course of doxycycline. Discharge Plan Triage Chief Complaint: Shortness of Breath ED Provider: Parker Metzger Dx/Rx/DC Orders Clinical Impression: Acute exacerbation of chronic obstructive pulmonary disease, Hypothyroidism, HTN (hypertension), Atherosclerosis of coronary artery of [place] heart without angina pectoris, Stage 2 moderate COPD by GOLD classification, Prostate CA, Acute bronchospasm, Chronic a-fib Instructions: ED COPD Flare Prescriptions: New prednisone 20 mg tablet 60 mg PO DAILY Qty: 15 0RF doxycycline monohydrate 100 mg capsule 100 mg PO BID Qty: 10 0RF albuterol sulfate [Ventolin HFA] 90 mcg/actuation HFA aerosol inhaler 2 puff inhalation Q4H PRN PRN (Reason: Wheezing) Qty: 1 0RF Atrovent HFA 17 mcg/actuation HFA aerosol inhaler 2 puff inhalation Q8H Qty: 12.9 0RF No Action acetaminophen 500 mg tablet 1,000 mg PO Q6H PRN levothyroxine 50 MCG tablet 50 mcg PO DAILY atorvastatin 40 MG tablet 40 mg PO QHS amlodipine 5 MG tablet 5 mg PO DAILY spironolactone 25 MG tablet 25 mg PO DAILY potassium chloride 10 mEq tablet extended release 20 meq PO DAILY Patient Comments: TAKE 2 TABLETS BY MOUTH ONCE DAILY WITH BREAKFAST gabapentin 100 mg capsule 200 mg PO QHS atenolol 50 mg tablet 50 mg PO DAILY Patient Comments: TAKE 1 TABLET BY MOUTH ONCE DAILY escitalopram oxalate 20 mg tablet 20 mg PO DAILY Patient Comments: TAKE 1 TABLET BY MOUTH ONCE DAILY aspirin 81 MG tablet,chewable 81 mg PO DAILY@0800 clopidogrel 75 MG tablet 75 mg PO DAILY tramadol 50 mg tablet 50 mg PO Q4H PRN PRN (Reason: Pain) 3 Days Qty: 20 0RF docusate sodium [DOK] 100 mg capsule 100 mg PO DAILY Qty: 20 0RF Primary Care Provider: Shayne Zaidi Referrals: Shayne Zaidi MD [Primary Care Provider] - Disposition Disposition: Home, Self Care What to do if you have Problems For any increased pain, shortness of breath, bleeding, nausea or vomiting, chestpain, or any unexpected problems, contact your Primary Care Provider. Call [facility] ([phone]) or report to the closest Emergency Room. Call 911 if necessary. 03/15/23 1559 <Electronically signed by Parker Metzger MD> Cosigner Signature (if applicable): CC: Dr. Shayne Zaidi MD ~ Signed [facility] Work Phone: 1(828) 124-856511-21-2023 Miscellaneous Notes* Telephone Encounter - Ge Will - 12/28/2022 1:00 PM EST Order signed by PCP and faxed. * Telephone Encounter - Ge Will - 12/28/2022 8:14 AM EST Received annual oxygen prescription order form (renewal date 12/08/21) from [facility]. Placed in provider's inbox for review. Route to [place] fax [phone] [facility] Miscellaneous Notes* Telephone Encounter - Ge Will - 09/23/2022 8:10 AM EDT Received ED visit summary and xrays for lower extremity injusry from [facility] ED. Placed in provider's inbox for review. Route to [place] scanning. documented in [facility] Hospital Discharge instructions Additional Instructions Closed fracture of ankle. Maintain splint. Usual walker do not put weight on your right lower extremity. Take pain medications as prescribed. Continue to ice and elevate for swelling. Call office of Dr. Pozo for appointment to be seen on Tuesday or Tuesday.[facility] Work Phone: [phone]) 996-238607-14-2023 Miscellaneous Notes* Addendum Note - Talia Ann LPN - 08/20/2022 4:55 PM EDTAddended by: TALIA ANN on: 08/20/2022 04:55 PM Modules accepted: Orders * Telephone Encounter - Talia Ann LPN - 08/20/2022 4:52 PM EDT Last office note states that Lexapro was stopped by patient due to side effects (ED). Is patient taking medication again. * Telephone Encounter - Jessi Sotelo - 08/20/2022 4:38 PM EDT Patient came in to request a refill of his meds. He needs atorvastatin,eliquis,escitalopram oxalate(out of this completely) ,gabapentin,levothyroxine potassium chloride,spironolactone. Please advise documented in this encounterOhio[facility] Miscellaneous Notes* Telephone Encounter - Talia Ann LPN - 06/22/2022 9:08 AM EDT LM for patient to call office. * Telephone Encounter - Hever Santiago APRN.CNP - 06/22/2022 8:49 AM EDT Please call patient and remind him to get his repeat chest xray completed in the next week, order placed. Hever Santiago APRN.CNP documented in this encounterOhio[facility] History of Present illness Narrative* Hever Santiago APRN.CNP - 06/02/2022 1:02 PM EDT This note was created using NoteWriter. Subjective Arturo Pedersen is a 81 year old male. Patient here for follow-up on pneumonia. Saw PCP on 05/21 for SOB, chest xray showed New atelectasis and/or early infiltrate in the right middle lobe. Follow-up to document resolution. Patient was treated with Augmentin and doxycycline [...] HIP FRACTURE(S) Left 11/2017 hip screw placed [facility] Aspirin, Oxycodone, and Percodan [Oxycodone-Aspirin] [...] 134/68 Pulse 84 Ht 180.3 cm (5' 10.98) Wt 93 kg (205 lb) BMI 28.60 [...] for any new or worsening depression/anxiety. Hever Santiago APRN.CNP documented in this encounterOhio[facility]23 Miscellaneous Notes* Telephone Encounter - Violetta Humphrey RN - 05/26/2022 1:28 PM EDT Notified patient-he agrees to plan. Scheduled f/u. Patient verbalizes understanding and has no other questions or concerns at this time. Violetta Humphrey RN Reason for Disposition Health Information question, no triage required and triager able to answer question Protocols used: Information Only Call - No [id number] * Telephone Encounter - Magdy Gloria RN - 05/25/2022 9:55 AM EDT Attempted to reach patient. Left message to call back. * Telephone Encounter - Hever Santiago APRN.CNP - 05/25/2022 9:47 AM EDT Let patient know that his chest xray showed a possible early pneumonia and Dr. Zaidi would like totreat him. I sent two antibiotics to the pharmacy for him to take for 5 days. Please schedule follow-up appointment in person with Dr. Zaidi or me in 1 week to re-evaluate how he's doing. Hever Santiago APRN.SHANNAN documented in this encounterOhio[facility] History of Present illness Narrative* Rocky Combs, RT(R) - 05/22/2022 11:00 AM EDT Radiology Service Progress Note PATIENT NAME: Arturo Pedersen DATE OF SERVICE: May 22, 2022 TIME: 11:25 AM PATIENT IDENTITY VERIFICATION COMPLETED USING TWO (2) IDENTIFIERS: Name and Date of confirmedby patient verbally. FALL SCREENING: Has the patient [...] RT Sravan(R) May 22, 2022 11:25 AM documented in this encounterOhio[facility] History of Present illness Narrative* Paddy Zaidi MD - 05/21/2022 3:59 PM EDT CHIEF COMPLAINT Patient presents with: Follow Up HISTORY OF PRESENT ILLNESS Arturo Pedersen is a 81 year old male who presents here today for a follow up. I last saw this patient on . Pt is accompanied by his nephew. CAD / Afib Admitted [facility] Cath/ stent placed, no f/u with cardiology. - Pt notes after walking out to car after eating at [employer], , Pt feels like he will pass out. - Pt nephew notes he experiences similar episodes when getting out of the car after going to [facility] - Pt checks his blood pressure at home and records good numbers - Pt nephew notes Pt has trouble walking; he has coughing spells - Pt uses two pillows to lay in bed. Cardiac Cath Intervention on 12-16-2021 Cardiac Cath Intervention [facility] Services [address] [place] [id number] Cardiac Cath Intervention MR#: [id number] Acct: [id number] Name: ARTURO PEDERSEN Rep #: [id number] : 1940 81 From: Dallas Muller MD PCP: Dr. Shayne Zaidi MD Status:ADM IN Patient Name: ARTURO PEDERSEN Study Date: 12/16/2021 Performing: Tiago Burden MD Ht: 71 inches 180.34 cm : 1940 Wt: 194.29 lbs 88.13 kg Age: 81 Gender: male BSA: 2.08 PROCEDURE(S) PERFORMED IC12-(12382/C9600)KIRK W/WO PTCA, SINGLE CORONARY ARTERY CLINICAL PROFILE [...] XB3.5 100cm Guide Catheter Grey .014 [employer] Firestone Straight 190cm Chadwick Sci EMERGE MR 3.00x08 BALLOON Chadwick Sci Synergy MR KIRK 3.50x08 Medtronic NC EUPHORA RX 3.5x08 BALLOON COPD/ JONATHAN? 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 Electronically Signed: Yousif Weaver. May 21, 2022 3:59 PM Provider Attestation: I, Paddy Zaidi MD, personally [...] 21, 2022 6:20 PM documented in this encounterOhiohealth [facility]04-07-2023 Miscellaneous Notes* Addendum Note - Hever Franklin Ma - 05/14/2022 3:37 PM EDTAddended by: HEVER FRANKLIN MA on: 05/14/2022 03:37 PM Modules accepted: Orders * Telephone Encounter - Hever Franklin Ma - 05/14/2022 3:36 PM EDT Last appointment: 12/23/21 Next appointment: 05/23/22 Pharmacy verified in [facility]. Refill(s) requested: Requested Prescriptions Pending Prescriptions [...] Order(s) pended. Please advise. Hever Franklin Ma, CRUDE UNIT OPERATOR * Telephone Encounter - Lacie Muñoz - 05/14/2022 3:24 PM EDT Adrian came by and needs refills of all of his medications sent to [facility] pharmacy in [place]. Can someone assist him with his RX refills? He is totally out of gabapentin but also requesting atorvastatin, spironolactone, escitalopram oxalate, atenolol, levothyroxine, potassium chloride. I have scheduled Adrian for a routine check up since he has not been seen since last fall. 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) - [id number] Last Billed 12/23/2021 Outcome- lvm to schedule [...] Outreach HCC or suspected condition Payer: Payor: A[employer]TTY MEDICARE / Plan: [employer]ET[employer] MEDICARE PPO / Product Type: PPO / Care Gap Reviewed:: Follow-up appointment Reminder: Reminder note to check Health Maintenance for items below Health Maintenance items due: SPIROMETRY Never done COVID-19 VACCINE(3 - Booster for Moderna series) due on 05/23/2020 INFLUENZA(1) due on 10/08/2021 LDL CHOLESTEROL due on 12/17/2021 ADVANCE DIRECTIVE DISCUSSION Never done Navigation Signature: Talia Hood Population Health Navigator April 27, 2022 2:59 PM documented in this encounterOhiohealth Van Wert Hospital01-13-2023 Miscellaneous Notes* Telephone Encounter - Lacie Muñoz - 02/19/2022 4:01 PM EST Adrian stopped in and requested refills of: Gabapentin, Atorvastatin, Atenolol, Escitalopram, Sprionolactone, Potassium Chloride, and Levothyroxin. Could someone advise Adrian when and if RX refills havebeen sent? Thank you, Lacie Muñoz documented in this encounterOhiohealth Van Wert Hospital11-21-2022 Miscellaneous Notes* Telephone Encounter - Ge Will - 12/28/2021 2:02 PM EST Received visit summary for sleep apnea and COPD from [facility]. Placed in provider's inbox for review. Route to MA scanning. documented in this encounterOhiohealth Van Wert Hospital11-18-2022 Miscellaneous Notes* Telephone Encounter - Talia Ann LPN - 12/25/2021 11:42 AM EST Received 12/25/2021 from [facility]. Placed in provider's inbox for review. 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 Placed in provider's inbox for review. Route to MA scanning. documented in this encounterOhiohealth Van Wert Hospital11-14-2022 Miscellaneous Notes* Telephone Encounter - Talia Ann LPN - 12/21/2021 11:00 AM EST Received 12/18/2021 from [facility]. Placed in provider's inbox for review. Route to MA for scanning. documented in this [facility]11-14-2022 Miscellaneous Notes* Telephone Encounter - Talia Ann LPN - 12/21/2021 10:57 AM EST Received 12/21/2021 from [facility]. Placed in provider's inbox for review. Route to MA for scanning documented in this encounterOhiohealth Van Wert Hospital11-10-2022 Miscellaneous Notes* Telephone Encounter - Ge Confer - 12/17/2021 3:17 PM EST Received liver us for elevated lft's from [facility]. Placed in provider's inbox for review. Route to MA scanning. documented in this encounterOhiohealth Van Wert Hospital11-09-2022 Miscellaneous Notes* Telephone Encounter - Ge Confer - 12/16/2021 3:08 PM EST Received cardiac cath intervention/diagnostic procedure note and EKG's 12/14, 12/15, 12/16 from [facility]. Placed in provider's inbox for review. Route to MA scanning. documented in this encounterOhiohealth Van Wert Hospital11-08-2022 Miscellaneous Notes* Telephone Encounter - Ge Confer - 12/15/2021 8:54 AM EST Received ED summary, labs, imaging for SOB and chest pain from [facility]. Placed in provider's inbox for review. Route to MA scanning. documented in this encounterOhiohealth Van Wert Hospital10-10-2022 Miscellaneous Notes* Telephone Encounter - Paddy Zaidi MD - 11/16/2021 1:23 PM EDT The following approved medication requests have been [...] AT BEDTIME FOR NEUROPATHY. Refused By: TALIA ANN Reason for Refusal: Patient has requested refill too soon Paddy Zaidi MD * Telephone Encounter - Talia Ann LPN - 11/16/2021 10:28 AM EDT Pharmacy verified in [facility] Patient has been identified by name [...] (194 lb) Not applicable Please advise. Talia Ann LPN documented in this encounterOhiohealth Van Wert Hospital08-09-2022 Miscellaneous Notes* Telephone Encounter - Jessi Sotelo - 09/15/2021 9:48 AM EDT 1st attempt. Called patient and left message on VM. * Telephone Encounter - Ge Will - 09/14/2021 4:21 PM EDT Called pt and informed of lab results. Pt is agreeable with scheduling please assist. * Telephone Encounter - Hever Santiago APRN.SHANNAN - 09/14/2021 3:26 PM EDT Please let patient know that his kidney function is stable. Potassium is normal, sodium was slightly low and will continue to monitor this. Schedule an appointment in 3 months to recheck. Hever Santiago APRN.CNP documented in this encounterOhiohealth Van Wert Hospital08-04-2022 Miscellaneous Notes* Telephone Encounter - Ge Will - 09/10/2021 2:50 PM EDT Called and spoke with pt. Pt will have labs drawn soon. * Telephone Encounter - Hever Santiago APRN.CNP - 09/10/2021 8:21 AM EDT Patient is due for updated kidney function labs. Order placed, please get done soon, nonfasting. Hever Santiago APRN.CNP * Telephone Encounter - Timothy Maradiaga Ma - 09/09/2021 5:00 PM EDT Last appointment: 06/22/21 Next appointment: n/a Pharmacy verified in [facility]. Refill(s) requested: Pending Prescriptions Disp Refills ATENOLOL [...] Order(s) pended. Please advise. Timothy Maradiaga Ma, CMA documented in this encounterOhiohealth Van Wert Hospital05-16-2022 History of Present illness Narrative* Hever Santiago APRN.CNP - 06/22/2021 1:03 PM EDT This note was created using NoteWriter. Subjective Arturo Pedersen is a 80 year [...] 161/78 Pulse 65 Ht 180.3 cm (5' 10.98) Wt 88.4 kg (194 lb 12.8 oz) [...] us posted on his progress with the higherdose. - gabapentin (NEURONTIN) 100 mg capsule; Take 2 capsules by mouth daily at bedtime for 180 days. For neuropathy Dispense: 180 capsule; Refill: 1 Hever Santiago APRN.CNP documented in this encounterOhiohealth Van Wert Hospital05-04-2022 Miscellaneous Notes* Telephone Encounter - Jessi Sotelo - 06/10/2021 5:20 PM EDT Called patient and got appointment scheduled * Telephone Encounter - Hever Santiago APRN.CNP - 06/10/2021 10:27 AM EDT Patient is due for a 6 month chronic care visit, please schedule with either provider. Hever Santiago APRN.CNP * Telephone Encounter - Corrina Riggins - 06/09/2021 3:55 PM EDT Pharmacy verified in [facility] Patient has been identified by name [...] advise. Corrina Preciado Pss documented in this encounterOhiohealth Van Wert Hospital04-14-2022 Miscellaneous Notes* Telephone Encounter - Paddy Zaidi MD - 05/21/2021 8:41 AM EDT The following approved medication requests have been transmitted electronically. Signed Prescriptions Disp Refills escitalopram oxalate (LEXAPRO) 20 mg tablet 30 tablet 0 Sig: Take 1 tablet by mouth once daily KARLA: No Authorizing Provider: PADDY ZAIDI MD * Telephone Encounter - Haily Avila MA - 05/20/2021 6:37 PM EDT Last appointment: 12-17-20 Next appointment: na Pharmacy verified in [facility]. Refill(s) requested: Pending Prescriptions Disp Refills ESCITALOPRAM 20 MG TABLET 30 tablet 0 Sig: Take 1 tablet by mouth once daily KARLA: Yes Order(s) pended. Please advise. Haily Avila MA, [facility] documented in this encounterMag[facility]* Diagnosis Essential hypertension Unspecified essential hypertension Hypokalemia Hypopotassemia documented in this encounter [facility]* Diagnosis Essential hypertension- Primary Unspecified essential hypertension Pure hypercholesterolemia Acquired hypothyroidism Unspecified hypothyroidism Adjustment disorder with mixed anxiety and depressed mood Peripheral polyneuropathy Unspecified hereditary and idiopathic peripheral neuropathy documented [facility]* Diagnosis Essential hypertension Unspecified essential hypertension Hypokalemia Hypopotassemia documented [facility] this encounter [facility]* Diagnosis Peripheral polyneuropathy Unspecified hereditary and idiopathic peripheral neuropathy documented [facility] encounter [facility]* Diagnosis Onset Date Resolution Status Non-STEMI (non-ST elevated myocardial infarction) acute Paroxysmal atrial fibrillation with RVR acute Pneumococcal pneumonia acute Acute exacerbation of COPD with asthma [facility] Work Phone: Evaluation note* Diagnosis Onset Date Resolution Status Non-STEMI (non-ST elevated myocardial infarction) acute Paroxysmal atrial fibrillation with RVR acute Pneumococcal pneumonia acute Acute exacerbation of COPD with asthma chronic HTN (hypertension) [facility] Work Phone: Evaluation note* Diagnosis COPD with exacerbation (HCC)- Primary Obstructive chronic bronchitis with exacerbation Hypertensive urgency Unspecified essential hypertension 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) S/P angioplasty with stent Other postprocedural status 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) Pneumonia of left upper lobe due to infectious organism Essential hypertension Unspecified essential hypertension Obstructive sleep apnea on CPAP Obstructive sleep apnea (adult) (pediatric) Hospital discharge follow-up Other follow-up examination documented in this encounter [facility]* Diagnosis Onset Date Resolution Status Non-STEMI (non-ST elevated myocardial infarction) acute Paroxysmal atrial fibrillation with RVR acute Acute exacerbation of COPD with asthma chronic HTN (hypertension) chronic 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 [facility] Work Phone: Evaluation note* Diagnosis Medication management Encounter for long-term (current) use of other medications Acquired hypothyroidism Unspecified hypothyroidism documented in this encounter [facility]Evaluation [facility]* Diagnosis Mixed hyperlipidemia Peripheral polyneuropathy Unspecified hereditary and idiopathic peripheral neuropathy Essential hypertension Unspecified essential hypertension Hypothyroidism, unspecified type Hypokalemia Hypopotassemia documented in this encounter [facility]* Diagnosis 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)- Primary Essential hypertension Unspecified essential hypertension Hypokalemia Hypopotassemia Peripheral polyneuropathy Unspecified hereditary and idiopathic peripheral neuropathy Acquired hypothyroidism Unspecified hypothyroidism Anxiety Anxiety state, unspecified Paroxysmal atrial fibrillation (HCC) Atrial fibrillation SOB (shortness of breath) Shortness of breath Mixed hyperlipidemia Hypothyroidism, unspecified type Chronic obstructive pulmonary disease, unspecified COPD type (HCC) documented in this encounter [facility]* Diagnosis Pneumonia of right middle lobe due to infectious organism- Primary documented in this encounter [facility]* Diagnosis Pneumonia of right middle lobe due to infectious organism- Primary ED (erectile dysfunction) of organic origin Impotence of organic origin Adjustment disorder with mixed anxiety and depressed mood documented in this encounter [facility]* Diagnosis Hypothyroidism, unspecified type Mixed hyperlipidemia documented in this encounter [facility] HospitalEvaluation noteNo assessment information availableWOhio State University [facility] Work Phone: Evaluation note* Diagnosis Hypothyroidism, unspecified type Essential hypertension Unspecified essential hypertension Mixed hyperlipidemia Peripheral polyneuropathy Unspecified hereditary and idiopathic peripheral neuropathy documented in this encounter [facility] note* Diagnosis 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 Hypothyroidism, unspecified type Essential hypertension Unspecified essential hypertension Mixed hyperlipidemia Peripheral polyneuropathy Unspecified hereditary and idiopathic peripheral neuropathy SOB (shortness of breath) Shortness of breath Hypoxemia documented in this encounter [facility] note* Diagnosis Essential hypertension Unspecified essential hypertension Hypothyroidism, unspecified type documented in this encounter [facility] note* Diagnosis Hypokalemia Hypopotassemia documented in this encounter [facility] note* Diagnosis 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) Paroxysmal atrial fibrillation (HCC) Atrial fibrillation SOB (shortness of breath) Shortness of breath documented in this encounter [facility] note* Diagnosis Pneumonia of right lower lobe due to infectious organism- Primary Chronic obstructive pulmonary disease, unspecified COPD type (HCC) Adjustment disorder with mixed anxiety and depressed mood Paroxysmal atrial fibrillation (HCC) Atrial fibrillation Encounter for immunization Need for other specified prophylactic vaccination against single bacterial disease documented in this encounter [facility] note* Diagnosis Chronic atrial fibrillation (HCC)- Primary 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 Long-term (current) use of anticoagulants documented in this encounter [facility] note* Diagnosis Chronic obstructive pulmonary disease, unspecified COPD type (HCC) documented in this encounter [facility] note* Diagnosis Chronic obstructive pulmonary disease, unspecified COPD type (HCC) documented in this encounter [facility] note* Diagnosis Chronic obstructive pulmonary disease, unspecified COPD type (HCC) Chronic obstructive pulmonary disease, unspecified COPD type (HCC) Stage 3 severe COPD by GOLD classification ([facility])- Primary Pneumonia of left lower lobe due to infectious organism Lung nodules Other nonspecific abnormal finding of lung field Former smoker Personal history of tobacco use, presenting hazards to health Chronic hypoxemic respiratory failure ([facility]) Chronic respiratory failure documented in this encounter [facility] note* Diagnosis Chronic obstructive pulmonary disease, unspecified COPD type (HCC)- Primary documented in this encounter [facility] note* Diagnosis Stage 3 severe COPD by GOLD classification ([facility])- Primary Hypoxia Hypoxemia Pneumonia of left lower lobe due to infectious organism Lung nodules Other nonspecific abnormal finding of lung field documented in this encounter [facility]* Diagnosis Pneumonia of left lower lobe due to infectious organism Lung nodules Other nonspecific abnormal finding of lung field [facility]* Diagnosis Mixed hyperlipidemia Essential hypertension Unspecified essential hypertension [facility]* Diagnosis Hypothyroidism, unspecified type Peripheral polyneuropathy Unspecified hereditary and idiopathic peripheral neuropathy documented in this encounter [facility] note* Diagnosis Oxygen dependent- Primary Dependence on supplemental oxygen Atherosclerotic cardiovascular disease Anxiety attack Panic 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 Leg swelling Swelling of limb Adjustment disorder with mixed anxiety and depressed mood PAD (peripheral artery disease) Peripheral vascular disease, unspecified Acquired hypothyroidism Unspecified hypothyroidism Pure hypercholesterolemia Idiopathic peripheral neuropathy Unspecified hereditary and idiopathic peripheral neuropathy Atherosclerosis of cahuilla coronary artery of cahuilla heart without angina pectoris documented [facility] this encounter [facility]* Diagnosis Adjustment disorder with mixed anxiety and depressed mood Hypokalemia Hypopotassemia documented in this encounter [facility] note* Diagnosis Hypokalemia Hypopotassemia documented in this encounter [facility] note* Diagnosis Hypothyroidism, unspecified type documented in this encounter [facility] for referral (narrative)* Outpatient Procedure (Routine) - Closed Specialty Diagnoses / Procedures Referred By Contac Referred To [facility] Diagnoses 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) Paroxysmal atrial fibrillation (HCC) Procedures ECG COMPLETE ECG ROUTINE ECG W/LEAST 12 LDS W/I&R Paddy Zaidi MD [address] [facility] [address] [place] [address] [facility] [place] [address] [place] [address] Referral ID Status Reason Start Date Expiration Date V isits Requested Visits Authorized [id number] Closed Auto-Generate d Referral 05/21/2022 05/21/2023 1 1 [facility] for referral (narrative)* Outpatient Procedure (Routine) - Authorized Specialty Diagnoses / Procedures Referred By Contac t Referred To Contact [facility] Diagnoses 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) Hypoxemia Procedures SIX MINUTE WALK CARDIOPULMONARY EXERCISE STRESS Paddy Zaidi MD [address] [place] [address] Res[facility] [place] [id number] Referral ID Status Reason Start Date Expiration Date Visits Requested Visits Authorized [id number] Authorized Auto-Generat ed Referral 06/07/2023 07/06/2024 1 1 [facility] for referral (narrative)* Outpatient Procedure (Routine) - Authorized Specialty Diagnoses / Procedures Referred By Contac t Referred To Contact [facility] Diagnoses Chronic obstructive pulmonary disease, unspecified COPD type (HCC) Procedures OXIMETRY WITH AMBULATION NONINVASIVE EAR/PULSE OXIMETRY MULTIPLE Raina Cruz MD [address] [place] [address] Res[facility] [place] [id number] Referral ID Status Reason Start Date Expiration Date Visits Requested Visits Authorized [id number] Authorized Auto-Generat ed Referral 03/05/2024 04/04/2025 1 1 * MRI/CT (Routine) - Authorized Specialty Diagnoses / Procedures Referred By Contac t Referred To Contact CT IMAGING Diagnoses Pneumonia of left lower lobe due to infectious organism Lung nodules Procedures CT CHEST WO IVCON DIAGNOSTIC COMPUTED TOMOGRAPHY THORAX W/O CNTRST Raina Huynh MD [address] [place] [address] Ct Imaging [facility] Referral ID Status Reason Start Date Expiration Date Visits Requested Visits Authorized [id number] Authorized Auto-Generat ed Referral 03/05/2024 04/04/2025 1 1 * Outpatient Procedure (Routine) - Closed Specialty Diagnoses / Procedures Referred By Contac t Referred To Contact [facility] Diagnoses Chronic obstructive pulmonary disease, unspecified COPD type (HCC) Procedures LUNG DIFFUSION CAPACITY (DLCO) DIFFUSING CAPACITY Raina Huynh MD [address] [place] [address] [facility] [place] [address] [place] [address] Referral ID Status Reason Start Date Expiration Date V isits Requested Visits Authorized [id number] Closed Auto-Generate d Referral 03/05/2024 04/04/2025 1 1 * Outpatient Procedure (Routine) - Closed Specialty Diagnoses / Procedures Referred By Contac t Referred To Contact [facility] Diagnoses Chronic obstructive pulmonary disease, unspecified COPD type (HCC) Procedures SPIROMETRY WITH DILATOR IF OBSTRUCTED BRNCDILAT RSPSE SPMTRY PRE&POST-BRNCDILAT ADMRaina Farooq MD [address] [facility] [place] [address] [facility] [place] [address] [place] [address] Referral ID Status Reason Start Date Expiration Date V isits Requested Visits Authorized [id number] Closed Auto-Generate d Referral 03/05/2024 04/04/2025 1 1 [facility] Summary Purpose Family History Relationship Condition Age at Onset Recorded Date/T tip Unknown Family History?- Unknown July 26, 2019 5:23am Family History?Cancer Unknown July 082019 5:23am Relationship Condition Age at Onset Recorded Date/T tip Unknown Family History?- Unknown July 26, 2019 6:23am Family History?Cancer Unknown July 082019 6:23am Advance Directives Advance Directive Response Recorded Date/ Time Living Will No December 14 5:17pm Power of Textile Conversion Manager No December 14, 2021 5:17pm Advance Directive Response Recorded Date/ Time Living Will No September 22 7:03pm Power of Textile Conversion Manager Yes September 22 7:03pm Name of Medical Power of Textile Conversion Manager GILA PEDERSEN September 22, 2022 7:03pm Advance Directive Response Recorded Date/ Time Living Will No March 15 2:08pm Power of Textile Conversion Manager Yes March 15, 2023 2:08pm Name of Medical Power of Textile Conversion Manager Gila March 15, 2023 2:08pm Chief Complaint and Reason for Visit Chief Complaint NSTEMI, COPD NSTEMI, COPD Reason for Visit Non-STEMI (non-ST el evated myocardial infarction) Paroxysmal atrial fibrillation with RVR Pneumococcal pneumonia Acute exacerbation of COPD with asthma Chief Complaint AFIB / RVR / NSTEMI / PNEUMONIA NSTEMI, COPD AFIB / RVR / NSTEMI / PNEUMONIA AFIB / RVR / NSTEMI / PNEUMONIA AFIB / RVR / NSTEMI / PNEUMONIA AFIB / RVR / NSTEMI / PNEUMONIA AFIB / RVR / NSTEMI / PNEUMONIA AFIB / RVR / NSTEMI / PNEUMONIA Reason for Visit Non-STEMI (non-ST el evated myocardial infarction) Paroxysmal atrial fibrillation with RVR Pneumococcal pneumonia Acute exacerbation of COPD with asthma HTN (hypertension) Chief Complaint AFIB / RVR / NSTEMI / PNEUMONIA NSTEMI, COPD AFIB / RVR / NSTEMI / PNEUMONIA AFIB / RVR / NSTEMI / PNEUMONIA AFIB / RVR / NSTEMI / PNEUMONIA AFIB / RVR / NSTEMI / PNEUMONIA AFIB / RVR / NSTEMI / PNEUMONIA AFIB / RVR / NSTEMI / PNEUMONIA AFIB / RVR / NSTEMI / PNEUMONIA AFIB / RVR / NSTEMI / PNEUMONIA 3 M FU/ needs new machine CSA,BIPAP ST Reason for Visit Non-STEMI (non-ST el evated myocardial infarction) Paroxysmal atrial fibrillation with RVR Acute exacerbation of COPD with asthma HTN (hypertension) Central sleep apnea Stage 2 moderate COPD by GOLD classification Chief Complaint Leg pain Chief Complaint SOB Reason for Referral Specialty Diagnoses / Procedures Referred By Jovan t Referred To Contact Cardiology Diagnoses Paroxysmal atrial fibrillation (HCC) Procedures CONSULT TO CARDIOLOGY OFFICE/OUTPATIENT [facility] 60 MINUTES Hever Martínez, MOBILE LAB TECHNICIAN.LABOR SPECIALIST [address] [place] [address] Referral ID Status Reason Start Date Expiration Date Visits Requested Visits Authorized [id number] Authorized PCP Requested Referral 02/14/2024 02/13/2025 1 1 Additional Source Comments (unrecognized sect ion and content) No Status Records FoundNo Status Records FoundNo Status Records FoundNo Status Records Found INFORMATION SOURCE (unrecogn ized section and content) DATE CREATED AUTHOR 06/30/2018 [facility] DATE CREATED AUTHOR AUTHOR'S ORGANIZ ATION 08/29/2023 [facility] DATE CREATED AUTHOR AUTHOR'S ORGANIZ ATION 03/03/2024 [facility] DATE CREATED AUTHOR AUTHOR'S ORGANIZ ATION 09/08/2024 [facility] Source Comments (unrecognize d section and content) In the event this informatio n is protected by the Federal Confidentiality of Alcohol and Drug Abuse Patient Records regulations: The Federal rules restrict any use of the information to criminally investigate or prosecute any alcohol or drug abuse patient.[facility]In the event this information is protected by the Federal Confidentiality of Alcohol and Drug Abuse Patient Records regulations: The Federal rules restrict any use of the information to criminally investigate or prosecute any alcohol or drug abuse patient.[facility]In the event this information is protected by the Federal Confidentiality of Alcohol and Drug Abuse Patient Records regulations: The Federal rules restrict any use of the information to criminally investigate or prosecute any alcohol or drug abuse patient.[facility] HospitalIn the event this information is protected by the Federal Confidentiality of Alcohol and Drug Abuse Patient Records regulations: The Federal rules restrict any use of the information to criminally investigate or prosecute any alcohol or drug abuse patient.[facility] HospitalIn the event this information is protected by the Federal Confidentiality of Alcohol and Drug Abuse Patient Records regulations: The Federal rules restrict any use of the information to criminally investigate or prosecute any alcohol or drug abuse patient.[facility] HospitalIn the event this information is protected by the Federal Confidentiality of Alcohol and Drug Abuse Patient Records regulations: The Federal rules restrict any use of the information to criminally investigate or prosecute any alcohol or drug abuse patient.[facility] HospitalIn the event this information is protected by the Federal Confidentiality of Alcohol and Drug Abuse Patient Records regulations: The Federal rules restrict any use of the information to criminally investigate or prosecute any alcohol or drug abuse patient.[facility] HospitalIn the event this information is protected by the Federal Confidentiality of Alcohol and Drug Abuse Patient Records regulations: The Federal rules restrict any use of the information to criminally investigate or prosecute any alcohol or drug abuse patient.[facility] HospitalIn the event this information is protected by the Federal Confidentiality of Alcohol and Drug Abuse Patient Records regulations: The Federal rules restrict any use of the information to criminally investigate or prosecute any alcohol or drug abuse patient.[facility] HospitalIn the event this information is protected by the Federal Confidentiality of Alcohol and Drug Abuse Patient Records regulations: The Federal rules restrict any use of the information to criminally investigate or prosecute any alcohol or drug abuse patient.[facility] HospitalIn the event this information is protected by the Federal Confidentiality of Alcohol and Drug Abuse Patient Records regulations: The Federal rules restrict any use of the information to criminally investigate or prosecute any alcohol or drug abuse patient.[facility] HospitalIn the event this information is protected by the Federal Confidentiality of Alcohol and Drug Abuse Patient Records regulations: The Federal rules restrict any use of the information to criminally investigate or prosecute any alcohol or drug abuse patient.[facility] HospitalIn the event this information is protected by the Federal Confidentiality of Alcohol and Drug Abuse Patient Records regulations: The Federal rules restrict any use of the information to criminally investigate or prosecute any alcohol or drug abuse patient.[facility] HospitalIn the event this information is protected by the Federal Confidentiality of Alcohol and Drug Abuse Patient Records regulations: The Federal rules restrict any use of the information to criminally investigate or prosecute any alcohol or drug abuse patient.[facility] HospitalIn the event this information is protected by the Federal Confidentiality of Alcohol and Drug Abuse Patient Records regulations: The Federal rules restrict any use of the information to criminally investigate or prosecute any alcohol or drug abuse patient.[facility] HospitalIn the event this information is protected by the Federal Confidentiality of Alcohol and Drug Abuse Patient Records regulations: The Federal rules restrict any use of the information to criminally investigate or prosecute any alcohol or drug abuse patient.[facility] HospitalIn the event this information is protected by the Federal Confidentiality of Alcohol and Drug Abuse Patient Records regulations: The Federal rules restrict any use of the information to criminally investigate or prosecute any alcohol or drug abuse patient.[facility] HospitalIn the event this information is protected by the Federal Confidentiality of Alcohol and Drug Abuse Patient Records regulations: The Federal rules restrict any use of the information to criminally investigate or prosecute any alcohol or drug abuse patient.[facility] HospitalIn the event this information is protected by the Federal Confidentiality of Alcohol and Drug Abuse Patient Records regulations: The Federal rules restrict any use of the information to criminally investigate or prosecute any alcohol or drug abuse patient.[facility] HospitalIn the event this information is protected by the Federal Confidentiality of Alcohol and Drug Abuse Patient Records regulations: The Federal rules restrict any use of the information to criminally investigate or prosecute any alcohol or drug abuse patient.[facility] HospitalIn the event this information is protected by the Federal Confidentiality of Alcohol and Drug Abuse Patient Records regulations: The Federal rules restrict any use of the information to criminally investigate or prosecute any alcohol or drug abuse patient.[facility] HospitalIn the event this information is protected by the Federal Confidentiality of Alcohol and Drug Abuse Patient Records regulations: The Federal rules restrict any use of the information to criminally investigate or prosecute any alcohol or drug abuse patient.[facility] HospitalIn the event this information is protected by the Federal Confidentiality of Alcohol and Drug Abuse Patient Records regulations: The Federal rules restrict any use of the information to criminally investigate or prosecute any alcohol or drug abuse patient.[facility] HospitalIn the event this information is protected by the Federal Confidentiality of Alcohol and Drug Abuse Patient Records regulations: The Federal rules restrict any use of the information to criminally investigate or prosecute any alcohol or drug abuse patient.[facility] HospitalIn the event this information is protected by the Federal Confidentiality of Alcohol and Drug Abuse Patient Records regulations: The Federal rules restrict any use of the information to criminally investigate or prosecute any alcohol or drug abuse patient.[facility] HospitalIn the event this information is protected by the Federal Confidentiality of Alcohol and Drug Abuse Patient Records regulations: The Federal rules restrict any use of the information to criminally investigate or prosecute any alcohol or drug abuse patient.[facility] HospitalIn the event this information is protected by the Federal Confidentiality of Alcohol and Drug Abuse Patient Records regulations: The Federal rules restrict any use of the information to criminally investigate or prosecute any alcohol or drug abuse patient.[facility] HospitalIn the event this information is protected by the Federal Confidentiality of Alcohol and Drug Abuse Patient Records regulations: The Federal rules restrict any use of the information to criminally investigate or prosecute any alcohol or drug abuse patient.[facility] HospitalIn the event this information is protected by the Federal Confidentiality of Alcohol and Drug Abuse Patient Records regulations: The Federal rules restrict any use of the information to criminally investigate or prosecute any alcohol or drug abuse patient.[facility] HospitalIn the event this information is protected by the Federal Confidentiality of Alcohol and Drug Abuse Patient Records regulations: The Federal rules restrict any use of the information to criminally investigate or prosecute any alcohol or drug abuse patient.[facility] HospitalIn the event this information is protected by the Federal Confidentiality of Alcohol and Drug Abuse Patient Records regulations: The Federal rules restrict any use of the information to criminally investigate or prosecute any alcohol or drug abuse patient.[facility] HospitalIn the event this information is protected by the Federal Confidentiality of Alcohol and Drug Abuse Patient Records regulations: The Federal rules restrict any use of the information to criminally investigate or prosecute any alcohol or drug abuse patient.[facility] HospitalIn the event this information is protected by the Federal Confidentiality of Alcohol and Drug Abuse Patient Records regulations: The Federal rules restrict any use of the information to criminally investigate or prosecute any alcohol or drug abuse patient.[facility] HospitalIn the event this information is protected by the Federal Confidentiality of Alcohol and Drug Abuse Patient Records regulations: The Federal rules restrict any use of the information to criminally investigate or prosecute any alcohol or drug abuse patient.[facility] HospitalIn the event this information is protected by the Federal Confidentiality of Alcohol and Drug Abuse Patient Records regulations: The Federal rules restrict any use of the information to criminally investigate or prosecute any alcohol or drug abuse patient.[facility] HospitalIn the event this information is protected by the Federal Confidentiality of Alcohol and Drug Abuse Patient Records regulations: The Federal rules restrict any use of the information to criminally investigate or prosecute any alcohol or drug abuse patient.[facility] HospitalIn the event this information is protected by the Federal Confidentiality of Alcohol and Drug Abuse Patient Records regulations: The Federal rules restrict any use of the information to criminally investigate or prosecute any alcohol or drug abuse patient.[facility] HospitalIn the event this information is protected by the Federal Confidentiality of Alcohol and Drug Abuse Patient Records regulations: The Federal rules restrict any use of the information to criminally investigate or prosecute any alcohol or drug abuse patient.[facility] HospitalIn the event this information is protected by the Federal Confidentiality of Alcohol and Drug Abuse Patient Records regulations: The Federal rules restrict any use of the information to criminally investigate or prosecute any alcohol or drug abuse patient.[facility] HospitalIn the event this information is protected by the Federal Confidentiality of Alcohol and Drug Abuse Patient Records regulations: The Federal rules restrict any use of the information to criminally investigate or prosecute any alcohol or drug abuse patient.[facility] HospitalIn the event this information is protected by the Federal Confidentiality of Alcohol and Drug Abuse Patient Records regulations: The Federal rules restrict any use of the information to criminally investigate or prosecute any alcohol or drug abuse patient.[facility] HospitalIn the event this information is protected by the Federal Confidentiality of Alcohol and Drug Abuse Patient Records regulations: The Federal rules restrict any use of the information to criminally investigate or prosecute any alcohol or drug abuse patient.[facility] HospitalIn the event this information is protected by the Federal Confidentiality of Alcohol and Drug Abuse Patient Records regulations: The Federal rules restrict any use of the information to criminally investigate or prosecute any alcohol or drug abuse patient.[facility] HospitalIn the event this information is protected by the Federal Confidentiality of Alcohol and Drug Abuse Patient Records regulations: The Federal rules restrict any use of the information to criminally investigate or prosecute any alcohol or drug abuse patient.[facility] HospitalIn the event this information is protected by the Federal Confidentiality of Alcohol and Drug Abuse Patient Records regulations: The Federal rules restrict any use of the information to criminally investigate or prosecute any alcohol or drug abuse patient.[facility] HospitalIn the event this information is protected by the Federal Confidentiality of Alcohol and Drug Abuse Patient Records regulations: The Federal rules restrict any use of the information to criminally investigate or prosecute any alcohol or drug abuse patient.[facility] HospitalIn the event this information is protected by the Federal Confidentiality of Alcohol and Drug Abuse Patient Records regulations: The Federal rules restrict any use of the information to criminally investigate or prosecute any alcohol or drug abuse patient.[facility] HospitalIn the event this information is protected by the Federal Confidentiality of Alcohol and Drug Abuse Patient Records regulations: The Federal rules restrict any use of the information to criminally investigate or prosecute any alcohol or drug abuse patient.[facility] HospitalIn the event this information is protected by the Federal Confidentiality of Alcohol and Drug Abuse Patient Records regulations: The Federal rules restrict any use of the information to criminally investigate or prosecute any alcohol or drug abuse patient.[facility] HospitalIn the event this information is protected by the Federal Confidentiality of Alcohol and Drug Abuse Patient Records regulations: The Federal rules restrict any use of the information to criminally investigate or prosecute any alcohol or drug abuse patient.[facility] HospitalIn the event this information is protected by the Federal Confidentiality of Alcohol and Drug Abuse Patient Records regulations: The Federal rules restrict any use of the information to criminally investigate or prosecute any alcohol or drug abuse patient.[facility] HospitalIn the event this information is protected by the Federal Confidentiality of Alcohol and Drug Abuse Patient Records regulations: The Federal rules restrict any use of the information to criminally investigate or prosecute any alcohol or drug abuse patient.[facility] HospitalIn the event this information is protected by the Federal Confidentiality of Alcohol and Drug Abuse Patient Records regulations: The Federal rules restrict any use of the information to criminally investigate or prosecute any alcohol or drug abuse patient.[facility] HospitalIn the event this information is protected by the Federal Confidentiality of Alcohol and Drug Abuse Patient Records regulations: The Federal rules restrict any use of the information to criminally investigate or prosecute any alcohol or drug abuse patient.[facility] HospitalIn the event this information is protected by the Federal Confidentiality of Alcohol and Drug Abuse Patient Records regulations: The Federal rules restrict any use of the information to criminally investigate or prosecute any alcohol or drug abuse patient.[facility] HospitalIn the event this information is protected by the Federal Confidentiality of Alcohol and Drug Abuse Patient Records regulations: The Federal rules restrict any use of the information to criminally investigate or prosecute any alcohol or drug abuse patient.[facility] HospitalIn the event this information is protected by the Federal Confidentiality of Alcohol and Drug Abuse Patient Records regulations: The Federal rules restrict any use of the information to criminally investigate or prosecute any alcohol or drug abuse patient.[facility] HospitalIn the event this information is protected by the Federal Confidentiality of Alcohol and Drug Abuse Patient Records regulations: The Federal rules restrict any use of the information to criminally investigate or prosecute any alcohol or drug abuse patient.[facility] HospitalIn the event this information is protected by the Federal Confidentiality of Alcohol and Drug Abuse Patient Records regulations: The Federal rules restrict any use of the information to criminally investigate or prosecute any alcohol or drug abuse patient.[facility] HospitalIn the event this information is protected by the Federal Confidentiality of Alcohol and Drug Abuse Patient Records regulations: The Federal rules restrict any use of the information to criminally investigate or prosecute any alcohol or drug abuse patient.[facility] HospitalIn the event this information is protected by the Federal Confidentiality of Alcohol and Drug Abuse Patient Records regulations: The Federal rules restrict any use of the information to criminally investigate or prosecute any alcohol or drug abuse patient.[facility] HospitalIn the event this information is protected by the Federal Confidentiality of Alcohol and Drug Abuse Patient Records regulations: The Federal rules restrict any use of the information to criminally investigate or prosecute any alcohol or drug abuse patient.[facility] HospitalIn the event this information is protected by the Federal Confidentiality of Alcohol and Drug Abuse Patient Records regulations: The Federal rules restrict any use of the information to criminally investigate or prosecute any alcohol or drug abuse patient.[facility] HospitalIn the event this information is protected by the Federal Confidentiality of Alcohol and Drug Abuse Patient Records regulations: The Federal rules restrict any use of the information to criminally investigate or prosecute any alcohol or drug abuse patient.[facility] HospitalIn the event this information is protected by the Federal Confidentiality of Alcohol and Drug Abuse Patient Records regulations: The Federal rules restrict any use of the information to criminally investigate or prosecute any alcohol or drug abuse patient.[facility] HospitalIn the event this information is protected by the Federal Confidentiality of Alcohol and Drug Abuse Patient Records regulations: The Federal rules restrict any use of the information to criminally investigate or prosecute any alcohol or drug abuse patient.[facility] HospitalIn the event this information is protected by the Federal Confidentiality of Alcohol and Drug Abuse Patient Records regulations: The Federal rules restrict any use of the information to criminally investigate or prosecute any alcohol or drug abuse patient.[facility] HospitalIn the event this information is protected by the Federal Confidentiality of Alcohol and Drug Abuse Patient Records regulations: The Federal rules restrict any use of the information to criminally investigate or prosecute any alcohol or drug abuse patient.[facility] HospitalIn the event this information is protected by the Federal Confidentiality of Alcohol and Drug Abuse Patient Records regulations: The Federal rules restrict any use of the information to criminally investigate or prosecute any alcohol or drug abuse patient.[facility] HospitalIn the event this information is protected by the Federal Confidentiality of Alcohol and Drug Abuse Patient Records regulations: The Federal rules restrict any use of the information to criminally investigate or prosecute any alcohol or drug abuse patient.[facility] HospitalIn the event this information is protected by the Federal Confidentiality of Alcohol and Drug Abuse Patient Records regulations: The Federal rules restrict any use of the information to criminally investigate or prosecute any alcohol or drug abuse patient.[facility] HospitalIn the event this information is protected by the Federal Confidentiality of Alcohol and Drug Abuse Patient Records regulations: The Federal rules restrict any use of the information to criminally investigate or prosecute any alcohol or drug abuse patient.[facility] HospitalIn the event this information is protected by the Federal Confidentiality of Alcohol and Drug Abuse Patient Records regulations: The Federal rules restrict any use of the information to criminally investigate or prosecute any alcohol or drug abuse patient.[facility] the event this information is protected by the Federal Confidentiality of Alcohol and Drug Abuse Patient Records regulations: The Federal rules restrict any use of the information to criminally investigate or prosecute any alcohol or drug abuse patient.[facility] Reason for Visit (unrecogniz ed section and content) Reason Comments Refill Request Reason Onset Date Comments Refill Request 06/09/2021 Reason Comments Follow Up Reason Comments Results Reason Comments Received Outside Medical Records [facility] ED Reason Comments Received Outside Medical Records [facility] Car diac Cath Reason Comments Received Outside Medical Records Liver U S [facility] Reason Comments Received Outside Medical Records [facility] chest xray 12/18/2021 Reason Comments Received Outside Medical Records [facility] discharge instructions. 12/18/2021 Reason Comments Erroneous encounter-disregard Reason Comments Received Outside Medical Records EKG [facility] Reason Comments Hospital F/U Reason Comments Received Outside Medical Records [facility] 12 lead EKG 12/16/2021 and 12/17/2021 Reason Comments Received Outside Medical Records Pulmona ry Medicine [facility] Reason Comments Medication Problem Reason Onset Date Comments Population Health Navigation Outreach 04/27/2022 HCC Reason Comments Follow Up Reason Comments Follow Up pneumonia Reason Comments Orders Reason Comments Patient Question Reason Comments Received Outside Medical Records [facility] 09/07 07/30 Reason Comments Orders [employer] annual oxygen prescription renewal Reason Comments Received Outside Medical Records [facility] ED 03/15/23 Reason Onset Date Comments [facility] Health Navigation Outreach 04/15/2023 [employer] HCCs 2.16.24 Reason Onset Date Comments Refill Request 05/27/2023 Reason Comments Results Labs Reason Onset Date Comments Refill Request 07/11/2023 Reason Comments Medication Request Reason Onset Date Comments Population Health Navigation Outreach 08/03/2023 [employer] AWV/HCC and care gaps Reason Onset Date Comments Population Health Navigation Outreach 08/25/2023 [employer] Attributed Member- Needs 2023 Medicare Wellness Appt Scheduled Reason Onset Date Comments Refill Request 12/01/2023 Reason Comments Orders [employer] annual oxygen rx Reason Onset Date Comments Refill Request 12/30/2023 Reason Comments Appointment Reason Comments Follow Up hospital Reason Comments Spirometry Specialty Diagnoses / Procedures Referred By Contac t Referred [facility] Diagnoses Chronic obstructive pulmonary disease, unspecified COPD type (HCC) Procedures SPIROMETRY WITH DILATOR IF OBSTRUCTED BRNCDILAT RSPSE SPMTRY PRE&POST-BRNCDILAT ADMN Raina Huynh MD [address] [place] [address] [address] Referral ID Status Reason Start Date Expiration Date V isits Requested Visits Authorized [id number] Closed Auto-Generate d Referral 03/05/2024 04/04/2025 1 1 Specialty Diagnoses / Procedures Referred By Contac t Referred [facility] Diagnoses Chronic obstructive pulmonary disease, unspecified COPD type (HCC) Procedures LUNG DIFFUSION CAPACITY (DLCO) DIFFUSING CAPACITY Raina Huynh MD [address] [place] [address] [address] Referral ID Status Reason Start Date Expiration Date V isits Requested Visits Authorized [id number] Closed Auto-Generate d Referral 03/05/2024 04/04/2025 1 1 Reason Comments New Patient COPD COPD Reason Onset Date Comments Population Health Navigation Outreach 03/20/2024 [employer] High Risk Attempt #1 Reason Comments Anticoagulation Reason Onset Date Comments Refill Request 03/21/2024 Specialty Diagnoses / Procedures Referred By Contac t Referred [facility] Diagnoses Chronic obstructive pulmonary disease, unspecified COPD type (HCC) Procedures OXIMETRY WITH AMBULATION NONINVASIVE EAR/PULSE OXIMETRY MULTIPLE DETER Raina Huynh MD [address] [place] [address] Phone: tel: fax: [facility] [place] [address] [place] [address] Referral ID Status Reason Start Date Expiration Date V isits Requested Visits Authorized [id number] Closed Auto-Generate d Referral 03/05/2024 04/04/2025 1 1 Reason Comments Established Patient COPD follow up Reason Comments Radiology CT Specialty Diagnoses / Procedures Referred By Jovan t Referred To Contact CT IMAGING Diagnoses Pneumonia of left lower lobe due to infectious organism Lung nodules Procedures CT CHEST WO IVCON DIAGNOSTIC COMPUTED TOMOGRAPHY THORAX W/O Riana Yang MD [address] [place] [address] Phone: tel: fax: [place] [phone] Referral ID Status Reason Start Date Expiration Date V isits Requested Visits Authorized [id number] Closed Auto-Generate d Referral 03/05/2024 04/04/2025 1 1 Reason Onset Date Comments Population Health Navigation Outreach 04/26/2024 [employer] High Risk - Attempt 2 Reason Onset Date Comments Population Health Navigation Outreach 06/18/2024 [employer] Reason Comments Follow Up Multiple issues Reason Onset Date Comments Results 06/29/2024 Reason Comments Patient Update Care Teams (unrecognized sec tion and content) Rebar Worker Relationship Specialty Start Date End Date Paddy Zaidi MD [address] [place] [address] PCP - General Family Practice 05/27/15 Rebar Worker Relationship Specialty Start Date End Date Paddy Zaidi MD [address] [place], [place] [address] PCP - General Family Practice 05/27/15 Rebar Worker Relationship Specialty Start Date End Date Paddy Zaidi MD [address] [place] [address] PCP - General Family Practice 05/27/15 Rebar Worker Relationship Specialty Start Date End Date Paddy Zaidi MD [facility] [place] [address] PCP - General Family Practice 05/27/15 Rebar Worker Relationship Specialty Start Date End Date Paddy Zaidi MD [address] [place] [address] PCP - General Family Practice 05/27/15 Rebar Worker Relationship Specialty Start Date End Date Paddy Zaidi MD [address] [place] [address] PCP - General Family Medicine 05/27/15 Rebar Worker Relationship Specialty Start Date End Date Paddy Zaidi MD [address] [place] [address], [place] [address] PCP - General Family Medicine 05/27/15 Rebar Worker Relationship Specialty Start Date End Date Paddy Zaidi MD [address] [place] [address], [place] [address] PCP - General Family Medicine 05/27/15 Rebar Worker Relationship Specialty Start Date End Date Paddy Zaidi MD [address] [place] [address], [place] [address] PCP - General Family Medicine 05/27/15 Rebar Worker Relationship Specialty Start Date End Date Paddy Zaidi MD [address] [place] [address], [place] [address] PCP - General Family Medicine 05/27/15 Rebar Worker Relationship Specialty Start Date End Date Paddy Zaidi MD [address] [place] [address], [place] [address] PCP - General Family Medicine 05/27/15 Rebar Worker Relationship Specialty Start Date End Date Paddy Zaidi MD [address] [place] [address], [place] [address] PCP - General Family Medicine 05/27/15 Rebar Worker Relationship Specialty Start Date End Date Paddy Zaidi MD [address] [place] [address] PCP - General Family Medicine 05/27/15 Rebar Worker Relationship Specialty Start Date End Date Paddy Zaidi MD [address] [place] [address] PCP - General Family Medicine 05/27/15 Rebar Worker Relationship Specialty Start Date End Date Paddy Zaidi MD [address] [place] [address] PCP - General Family Medicine 05/27/15 Rebar Worker Relationship Specialty Start Date End Date Paddy Zaidi MD [facility] [place] [address] PCP - General Family Medicine 05/27/15 Rebar Worker Relationship Specialty Start Date End Date Paddy Zaidi MD [address] [place] [address] PCP - General Family Medicine 05/27/15 Rebar Worker Relationship Specialty Start Date End Date Paddy Zaidi MD [address] [place] [address] PCP - General Family Medicine 05/27/15 Rebar Worker Relationship Specialty Start Date End Date Paddy Zaidi MD [address] [place] [address] PCP - General Family Medicine 05/27/15 Rebar Worker Relationship Specialty Start Date End Date Paddy Zaidi MD [address] [place] [address] PCP - General Family Medicine 05/27/15 Team Status: Active Member Role Status Dates Dr. Shayne Zaidi MD Family Provider Active Dr. Shayne Zaidi MD Primary Care Provider Active Team Status: Inactive Member Role Status Dates Dr. Shayne Zaidi MD Primary Care Provider Active Dr. Adrian Eddy DO Emergency Provider Active Rebar Worker Relationship Specialty Start Date End Date Paddy Zaidi MD [address] [place] [address] PCP - General Family Medicine 05/27/15 Rebar Worker Relationship Specialty Start Date End Date Paddy Zaidi MD [address] [place] [address] PCP - General Family Medicine 05/27/15 Team Status: Inactive Member Role Status Dates Dr. Shayne Zaidi MD Primary Care Provider Active Dr. Parker Metzger MD Emergency Provider Active Rebar Worker Relationship Specialty Start Date End Date Paddy Zaidi MD [address] [place] [address] PCP - General Family Medicine 05/27/15 Rebar Worker Relationship Specialty Start Date End Date Paddy Zaidi MD [address] [place] [address] PCP - General Family Medicine 05/27/15 Rebar Worker Relationship Specialty Start Date End Date Paddy Zaidi MD [address] [place] [address] PCP - General Family Medicine 05/27/15 Rebar Worker Relationship Specialty Start Date End Date Paddy Zaidi MD [address] [place] [address] PCP - General Family Medicine 05/27/15 Rebar Worker Relationship Specialty Start Date End Date Paddy Zaidi MD [address] [place] [address] PCP - General Family Medicine 05/27/15 Rebar Worker Relationship Specialty Start Date End Date Paddy Zaidi MD [address] [place] [address] PCP - General Family Medicine 05/27/15 Rebar Worker Relationship Specialty Start Date End Date Paddy Zaidi MD [address] [place] [address] PCP - General Family Medicine 05/27/15 Rebar Worker Relationship Specialty Start Date End Date Paddy Zaidi MD [address] [place] [address] PCP - General Family Medicine 05/27/15 Hever Martínez APRN.LABOR SPECIALIST [address] [facility] [address] [place], [place] [address] Core Machine Tender Internal Medicine 01/15/24 Rebar Worker Relationship Specialty Start Date End Date Paddy Zaidi MD [address] [place], [place] [address] PCP - General Family Medicine 05/27/15 Hever Martínez, MOBILE LAB TECHNICIAN.LABOR SPECIALIST [address] [facility] [address] [place], [place] [address] Core Machine Tender Internal Medicine 01/15/24 Rebar Worker Relationship Specialty Start Date End Date Paddy Zaidi MD [address] [place], [place] [address] PCP - General Family Medicine 05/27/15 Hever Martínez, MOBILE LAB TECHNICIAN.LABOR SPECIALIST [address] [facility] [address] [place] [id number] Core Machine Tender Internal Medicine 01/15/24 Rebar Worker Relationship Specialty Start Date End Date Paddy Zaidi MD [address] [place], [place] [address] PCP - General Family Medicine 05/27/15 Hever Martínez, MOBILE LAB TECHNICIAN.LABOR SPECIALIST [address] [facility] [address] [place], [place] [address] Core Machine Tender Internal Medicine 01/15/24 Rebar Worker Relationship Specialty Start Date End Date Paddy Zaidi MD [address] [place], [place] [address] PCP - General Family Medicine 05/27/15 Hever Martínez, MOBILE LAB TECHNICIAN.LABOR SPECIALIST [address] [facility] [address] [place], [place] [address] Core Machine Tender Internal Medicine 01/15/24 Rebar Worker Relationship Specialty Start Date End Date Paddy Zaidi MD [address] [place], [place] [address] PCP - General Family Medicine 05/27/15 Hever Martínez, MOBILE LAB TECHNICIAN.LABOR SPECIALIST [address] [facility] [address] [place] [address] Core Machine Tender Internal Medicine 01/15/24 Rebar Worker Relationship Specialty Start Date End Date Paddy Zaidi MD [address] [place], [place] [address] PCP - General Family Medicine 05/27/15 Hever Martínez, MOBILE LAB TECHNICIAN.LABOR SPECIALIST [address] [facility] [address] [place] MD [id number] Core Machine Tender Internal Medicine 01/15/24 Rebar Worker Relationship Specialty Start Date End Date Paddy Zaidi MD [address] [place], [place] [address] PCP - General Family Medicine 05/27/15 Hever Martínez APRN.LABOR SPECIALIST [address] [facility] [address] [place], [place] [address] Core Machine Tender Internal Medicine 01/15/24 Rebar Worker Relationship Specialty Start Date End Date Paddy Zaidi MD [address] [place], [place] [address] PCP - General Family Medicine 05/27/15 Hever Martínez MOBILE LAB TECHNICIAN.LABOR SPECIALIST [address] [facility] [address] [place], [place] [address] Core Machine Tender Internal Medicine 01/15/24 Rebar Worker Relationship Specialty Start Date End Date Padyd Zaidi MD [address] [place], [place] [address] PCP - General Family Medicine 05/27/15 Hever aMrtínez, MOBILE LAB TECHNICIAN.LABOR SPECIALIST [address] [facility] [address] [place], [place] [address] Core Machine Tender Internal Medicine 01/15/24 Rebar Worker Relationship Specialty Start Date End Date Paddy Zaidi MD [address] [place], [place] [address]351 PCP - General Family Medicine 05/27/15 Hever Martínez, MOBILE LAB TECHNICIAN.LABOR SPECIALIST [address] [facility] [address] [place], [place] [id number] Core Machine Tender Internal Medicine 01/15/24 Rebar Worker Relationship Specialty Start Date End Date Paddy Zaidi MD [address] [place], [place] [address]64[address] PCP - General Family Medicine 05/27/15 Hever Martínez, MOBILE LAB TECHNICIAN.LABOR SPECIALIST [address] [facility] [address] [place], [place] [address]431 Core Machine Tender Internal Medicine 01/15/24 Rebar Worker Relationship Specialty Start Date End Date Paddy Zaidi MD [address] [place], [place] [address] PCP - General Family Medicine 05/27/15 Hever Martínez, MOBILE LAB TECHNICIAN.LABOR SPECIALIST [address] [facility] [address] [place], [place] [id number] Core Machine Tender Internal Medicine 01/15/24 Rebar Worker Relationship Specialty Start Date End Date Paddy Zaidi MD [address] [place], [place] [address] PCP - General Family Medicine 05/27/15 Hever Martínez, MOBILE LAB TECHNICIAN.LABOR SPECIALIST [address] [facility] [address] [place], [place] [address] Core Machine Tender Internal Medicine 01/15/24 Rebar Worker Relationship Specialty Start Date End Date Paddy Zaidi MD [address] [place], [place] [address]85[address] PCP - General Family Medicine 05/27/15 Hever Martínez, MOBILE LAB TECHNICIAN.LABOR SPECIALIST [address] [facility] [address] [place], [place] [id number] Core Machine Tender Internal Medicine 01/15/24 Goals (unrecognized section and content) Goals may be documented in a n alternate sectionGoals may be documented in an alternate sectionGoals may be documented in an alternate section FOR RECORDS PERTAINING TO PATIENTS WHO ARE [...] BE BASED ON THE PRIMARY CLINICAL RECORDS. [facility] [email or web address], [facility]. provides no warranty or guarantee of the accuracy or completeness of information in this document.
--- NOTE | 2024-09-10 01:18 | PCM.HP.STD ---
[facility] Date of Admission: 09/10/24 Date of Service: 09/10/24 Chief Complaint: Shortness of Breath, Cough, Chest Pain, Anxiety and Generalized Weakness. [facility] Narrative ARTURO PEDERSEN, is a 83 M with a past medical history of essential hypertension; on amlodipine, atenolol and spironolactone, hyperlipidemia; on atorvastatin, hypothyroidism; on levothyroxine, overweight; with BMI of 29.3 this admission, central sleep apnea; on CPAP, CAD; s/p non-ST elevation MO with subsequent CABG x 2 (1992) and stents x 2 placed here (2021) on baby aspirin and clopidogrel, paroxysmal atrial fibrillation; on warfarin, history of CVA; with Right hemiparesis, history of Left vocal cord paralysis with chronic hoarseness, history of dysphagia, former tobacco abuse x ~50 pack years (quit 1992); with subsequent COPD, chronic Right hemidiaphragm elevation, idiopathic peripheral neuropathy; causing numbness and pain in both feet on gabapentin nightly, history of prostate cancer; s/p radiation treatment, depression with anxiety and panic attacks; on escitalopram, history of GERD; currently not on treatment and OA; with history of Right ankle fracture and Right THR with chronic pain; on as needed tramadol every 4 hours as needed who was transferred from [facility] with complaints of shortness of breath, chest pain, cough, anxiety and generalized weakness. Mr. Pedersen reports his symptoms began approximately ~2-3 days prior to admission with a gradual-onset of dyspnea on exertion that progressed to shortness of breath at rest with a URI symptoms. He also admits to congested cough productive of brownish sputum with intermittent severe difficulty breathing triggering chest pain and panic attacks. He states his chest pain is exacerbated by cough and deep breathing and is not exacerbated by palpation. He states his pain is not improved with rest or anything. He states his symptoms are similar to his previous bouts of pneumonia with COPD exacerbation. He admits to associated fatigue, congested cough, chest pain, intermittent lightheadedness and mild lower extremity edema. He denies related fever, chills, visual changes, runny nose, sore throat, palpitations, heart racing, abdominal pain, nausea, vomiting, diarrhea, constipation, neck pain, back pain, dysuria, hematuria, headache, confusion or rash. At [place] [facility] he was noted to have a CXR that revealed Right hemidiaphragm elevation with Left perihilar opacity with patient subsequently diagnosed with Pneumonia in addition to elevated pro-BNP of 2.4K consistent with AE CHF; of uncertain subtype complicated by clinical evidence of AE COPD causing patient to be treated with IV ceftriaxone, IV azithromycin, IV Solu-Medrol, DuoNebs, IV furosemide and oral lorazepam with an incidentally noted subtherapeutic INR of 1.4 and EKG revealing Atrial Fibrillation with heart rate of ~106 bpm and WBC of 10.2 K compounded by complaints of chest pain that are suspected to be at least partially pleuritic in nature in the setting of known CAD with all resulting in complaints of Generalized Weakness. He was then admitted to the PCU for ongoing care for stay that is expected to extend beyond 2 midnights. 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) Central sleep apnea Stage 2 moderate COPD by GOLD classification HTN (hypertension) Hoarseness left vocal cord paralysis Home Medications ?Medication ?Instructions ?Recorded ?Last Taken ?Type levothyroxine 50 mcg tablet 50 mcg PO DAILY thyroid 07/25/19 12/14/21 History atorvastatin 40 mg tablet 40 mg PO QHS cholesterol 07/28/19 12/14/21 History spironolactone 25 mg tablet 25 mg PO DAILY diuretic 07/28/19 12/14/21 History aspirin 81 mg chewable tablet 81 mg PO DAILY@0800 health 12/14/21 12/14/21 History atenolol 50 mg tablet 25 mg PO DAILY bp 12/14/21 12/14/21 History potassium chloride 10 mEq 20 meq PO DAILY supplement 12/14/21 12/14/21 History tablet,extended release albuterol sulfate 90 mcg/actuation 2 puff inhalation Q4H PRN PRN 03/15/23 Unknown Rx aerosol inhaler (Ventolin HFA) Wheezing ##1 fluticasone 250 mcg-salmeterol 50 1 inh inhalation Q12H 09/10/24 Unknown History mcg/dose blistr powdr for inhalation furosemide 20 mg tablet 20 mg PO DAILY 09/10/24 Unknown History gabapentin 300 mg capsule 300 mg PO BID 09/10/24 Unknown History nitroglycerin 0.3 mg sublingual 0.3 mg sublingual Q5M PRN chest 09/10/24 Unknown History tablet pain paroxetine HCl 40 mg tablet 40 mg PO DAILY 09/10/24 Unknown History warfarin 2.5 mg tablet 2.5 mg PO DAILY 09/10/24 Unknown History Allergy/AdvReac Type Severity Reaction Status Date / Time oxycodone (From Percodan) Allergy Other Verified 02/07/24 14:36 Surgical History History of coronary artery stent placement (12/16/21) Cataract extraction status History of hip replacement History of open heart surgery Social History Smoking Status: Former smoker quit date: 02/08/92 pack-years: 37 Tobacco: How many years used: 20 alcohol intake: never substance use type: does not use ROS ROS Narrative Review of Systems: Constitutional: Patient denies fever or chills. Eyes: Patient denies changes in vision or discharge from eyes. ENT: Patient denies runny nose, sore throat or ear pain. Resp: Patient admits to dyspnea on exertion the progressive shortness of breath at rest with cough productive of brownish sputum and occasional wheezing. CV: Patient admits to chest pain that is made worse with deep breathing and cough in addition to lower extremity edema. He denies associated palpitations or heart racing. GI: Patient denies abdominal pain, nausea, vomiting, diarrhea or constipation. : Patient denies dysuria, hematuria urinary frequency. MSK: Patient admits to generalized weakness as per HPI. Skin: Patient was noted to have tinea cruris. Psych: Patient admits to depression with anxiety and panic attacks but he denies SI or HI. Neuro: Patient admits to lightheadedness but he denies headache, paresthesias or new focal neurologic deficits. Allergy: Patient denies lip swelling, tongue swelling or urticaria. Hematology: Patient admits to easy bleeding and easy bruisability on warfarin. Endocrinology: Patient denies polyuria, polydipsia, polyphagia or heat/cold intolerance. 14 point ROS otherwise negative except for positives noted above in HPI. Vital Signs Vital Signs Vital Signs: Weight Weight: 209 lb 14.081 oz Body Mass Index (BMI) 29.2 Physical Exam Const alert, oriented x3 and no apparent distress Constitutional Narrative: Patient is chronically ill-appearing with significant central adiposity but nontoxic in appearance. He is able to speak in near full sentences General Appearance: cooperative HEENT normocephalic, head/scalp atraumatic, hearing grossly normal bilaterally and moist oral mucous membranes Eyes PERRL, EOMs intact bilaterally and conjunctivae normal Neck no lymphadenopathy and supple Resp Resp Narrative: Diminished breath sounds throughout with coarse rhonchi and rales at bases. Auscultation: rales and rhonchi Cardio Cardio Narrative: Irregularly irregular at ~106 bpm. GI normal to inspection, nondistended, normoactive bowel sounds, soft to palpation, non-tender and non-distended Extremity full ROM Extremity Narrative: Patient has ~2+ bilateral lower extremity symmetrical pitting edema. Skin Skin Narrative: Patient has evidence of tinea cruris. Neuro oriented x3, CN's II-XII intact bilaterally, moves all extremities and no focal motor deficits Sensorium / Orientation: awake, alert, oriented to person, oriented to place and oriented to time Speech: speech normal Psych affect normal Results Medical Records Data Attestation: I reviewed the patient's medical records Lab / Micro Data Attestation: I reviewed the patient's lab results. 09/10/24 03:19 09/10/24 03:19 Labs: RUN DATE: 09/10/24 [facility], DEPARTMENT OF LABORATORIES PAGE 1 RUN TIME: 622 Specimen Inquiry [id number], [place], [address] PATIENT: ARTURO PEDERSEN LOC: [facility] U #: [id number] : 1940 AGE/SX: 83/M FACILITY: [facility] ROOM: [facility] RE09/10/[address]: Heidy Wilkerson STATUS:ADM IN ED: 1 DIS: ~ SPEC #: [id number] ANASTACIO: 09/10/24 STATUS: COMP REQ #: [id number] RECD: 09/10/[address]: Dr. Kristopher Mckee, DO ENTERED: 09/10/24-[address]: Dr. Shayne Moncada MD ~ Test Result Flag Reference Range COMP METABOLIC LIPID GLU 174 H 70-99 mg/dL BUN 21 H 4-19 mg/dL CREAT,SERUM 0.75 0.70-1.20 mg/dL eGFR 89 >60 mL/min/1.73m2 CKD-EPI Creatinine Equation (2020) ECRCL 80.95 50-250 ml/min BUN/CRE 27.5 H 10-20 RATIO T PROT 7.6 5.9-8.4 g/dL ALB 3.7 3.4-4.8 g/dL GLOB 3.9 2.2-4.2 g/dL A/G 0.9 0.9-2.4 RATIO Calcium 8.9 7.6-11.0 mg/dL PHOS 2.7 2.7-4.5 mg/dL Trop T High Sen 8 <=22 ng/L AST 41 H <=37 U/L ALK PHOS 199 H 40-129 U/L ALT 34 <=46 U/L T BILI 0.73 0.00-1.30 mg/dL CHOL 85 <=200 mg/dL Cholesterol level, Desirable <200 mg/dL Borderline high cholesterol 200-239 mg/dL High cholesterol >=240 mg/dL Recommendations of the NCEP Adult Treatment Panel for the following risk-cutoff thresholds for the [place] population. TRIG 42 mg/dL The drugs N-Acetylcysteine and Metamizole may falsely depress this assay. Normal range: <150 mg/dL Borderline High: 150-199 mg/dL High: 200-499 mg/dL Very High: >500 mg/dL MG 2.1 1.5-2.2 mg/dL NA 139 133-145 mmol/L Potassium 3.9 3.3-5.1 mmol/L CL 98 98-108 mmol/L CO2 25.7 21.0-32.0 mmol/L GAP 16 H 5-15 HDL 37 L mg/dL National Cholesterol Education Program (NCEP) guidelines: <40 mg/dL: Low HDL-cholesterol (major risk factor for CHD) >= 60 mg/dL: High HDL-cholesterol (negative risk factor for CHD) HDL-cholesterol is affected by a number of factors, e.g. smoking, exercise, hormones, sex and age. CHOL:HDL 2.30 CLDL 40 mg/dL Kztcirupwg=502-114 mg/dL & Higher Cmbs=792 mg/dL or greater Friedwald Equation for LDL-C VLDL 8 5-40 mg/dL TSH 0.518 0.300-4.200 uIU/mL Vitamin B12 515 180-914 pg/mL proBNP 3825 H <=1800 pg/mL Heart Failure Unlikely: < 300 pg/mL Heart Failure Likely < 50 Years: > 450 pg/mL 50-75 Years: > 900 pg/mL >75 Years: > 1800 pg/mL ABG Data ABG results: RUN DATE: 09/10/24 [facility], DEPARTMENT OF LABORATORIES PAGE 1 RUN TIME: 0438 Specimen Inquiry [address] [place], [place], [id number] PATIENT: ARTURO PEDERSEN LOC: [facility] U #: [id number] : 1940 AGE/SX: 83/M FACILITY: [facility] ROOM: [facility] RE09/10/[address]: Heidy Wilkerson STATUS:ADM IN ED: 1 DIS: ~ SPEC #: [id number] ANASTACIO: 09/10/24 STATUS: COMP REQ #: [id number] RECD: 09/10/[address]: Dr. Kristopher Mckee, DO ENTERED: 09/10/[address]: Dr. Shayne Moncada MD ~ Test Result Flag Reference Range VIBG Blood Gas Type ARIEL SITE Not entered O2 Delivery Dev Cannula FI02 3.0 VBG pH 7.41 7.32-7.42 VBG pCO2 54.8 H 41-51 mmHg VBG PO2 68 H 25-40 mmHg VBG HCO3 35 H 22-26 mmol/L VBG BE 10 H -1.0-3.5 mmol/L VBG SO2 93 H 50-70 % VBG TCO2 37 H 23-33 mmol/L END OF REPORT Imaging [facility] Imaging Services [address] [place], [place] [address] Chest without Contrast MR#: [id number] Acct: [id number] Name: ARTURO PEDERSEN Rep #: [id number] : 1940 M 83 From: Jad Hamlin MD PCP: Dr. Shayne Moncada MD Status: ADM IN Study: Chest without Contrast Date of Exam: 09/10/24 Exam# [id number] Ordering Dr: Kristopher Mckee DO PROCEDURE: CHEST WITHOUT CONTRAST 09/10/2024 REASON FOR EXAM: SUSPECTED PNA ON CXR. TECHNIQUE: Chest CT without contrast. Coronal and Sagittal reconstruction series were provided. One or more dose reduction techniques were used (e.g., Automated exposure control, adjustment of the mA and/or kV according to patient size, use of iterative reconstruction technique RADIATION DOSE SUMMARY: CTDlvol: 20 mGy DLP: 691 mGycm COMPARISON: CT 02/07/2024, FINDINGS: Unremarkable base of neck and axilla. Thoracic spine scoliosis and degeneration. Normal esophagus. Normal heart size. Status post CABG. Mediastinum is shifted to the left and the right hemidiaphragm is markedly elevated. Gynecomastia. No acute chest wall findings. Cholelithiasis. No acute upper abdominal findings. There is bilateral lower lobe bronchial wall thickening and debris. On the left, there is upper lobe airspace disease favoring atelectasis. There is posterior lower lobe airspace disease, likely a mix of atelectasis and consolidation. On the right, there is posterior upper lobe airspace disease favoring atelectasis. There is lower lobe airspace disease likely a mix of atelectasis and consolidation. No effusion or pneumothorax. CT/Chest without Contrast IMPRESSION: Bilateral airspace disease, correlate for aspiration pneumonia. Reading Location: [place] [address] CC: Dr. Kristopher Mckee DO; Dr. Shayne Moncada MD ~ Crowning Inspector: Signed Assessment & Plan Assessment/Plan (1) Aspiration pneumonia: QUALIFIERS: Aspiration pneumonia type: unspecified Laterality: unspecified laterality Lung location: unspecified part of lung Qualified Code(s): J69.0 - Pneumonitis due to inhalation of food and vomit (2) COPD with acute exacerbation: (3) Acute exacerbation of chronic heart failure: (4) Chest pain: QUALIFIERS: Chest pain type: unspecified Qualified Code(s): R07.9 - Chest pain, unspecified (5) Respiratory insufficiency: (6) Generalized weakness: (7) Paroxysmal atrial fibrillation with RVR: (8) Anxiety disorder with panic attacks: (9) Subtherapeutic anticoagulation: (10) Overweight (BMI 25.0-29.9): (11) Central sleep apnea associated with atrial fibrillation: (12) Tinea cruris: PLAN: Plan 1. CXR that revealed Right hemidiaphragm elevation with Left perihilar opacity with patient subsequently diagnosed with Pneumonia; potentially due to aspiration - Admit to PCU. Continue empiric IV ceftriaxone and replace azithromycin with IV metronidazole to cover anaerobes due to potential adverse drug interaction with warfarin. Check urinary antigens Streptococcus pneumonia and Legionella. Check viral respiratory panel. Check CT scan of chest without contrast to confirm suspicion of pneumonia on CXR. Give scheduled guaifenesin twice daily. Give acetaminophen as needed for [id number] (level 1-5/10) pain or fever. Continue tramadol as needed for severe (level 6-10/10) pain. 2. Elevated pro-BNP of 2.4K consistent with AE CHF; of uncertain subtype and Chest Pain in the setting of previously known CAD; s/p CABG x 2 (1992) and stents x 2 (2021) complicating #1 - Continue IV furosemide BID. Check echocardiogram to evaluate LVEF. Maintain on BASA, clopidogrel and prn SL NTG as previous. Serialize troponin. Finally, we will consult [facility] to see this patient on rounds in the a.m. for further recommendations without appreciated events. 3. AE COPD with Acute Respiratory Insufficiency compounding #1 & #2 - Continue IV methylprednisolone plus scheduled and prn nebulizers. Check VBG to establish baseline this admission. 4. Generalized Weakness due to #1 - #3 - PT/OT and Case Management to consult and treat on rounds in the AM for further recommendations with help appreciated in advance. 5. Depression with Anxiety and Panic Attacks exacerbated by #1 - #4 - Maintain home medications plus give low-dose alprazolam prn BID for breakthrough symptoms. 6. Paroxysmal atrial fibrillation; on chronic warfarin with subtherapeutic INR of 1.5 present on admission - Resume warfarin and give one full-dose of enoxaparin in an effort to bridge until INR is therapeutic. Recheck INR to follow trend. 7. Overweight; with BMI of 29.3 present on admission with Central Sleep Apnea adding to the burden of disease outlined from #1 - #6 - Weight loss will be recommended. Check TSH. Continue nocturnal CPAP. 8. Tinea Cruris - Patient started on nystatin powder. 9. Essential hypertension; on amlodipine, atenolol and spironolactone - Maintain home regimen plus give prn hydralazine IV for systolic blood pressure > 160 mmHg. 10. Hyperlipidemia; on atorvastatin - Restart statin and check Lipid Profile. 11. Hypothyroidism; on levothyroxine - Resume levothyroxine as before and check TSH. 12. History of CVA; with Right hemiparesis - Stable. 13. History of Left vocal cord paralysis with chronic hoarseness - Stable. 14. History of dysphagia - We will consult speech therapy to evaluate with help appreciated in advance. 15. Chronic Right hemidiaphragm elevation - Noted. 16. Idiopathic peripheral neuropathy; causing numbness and pain in both feet on gabapentin nightly - Continue gabapentin and check B12 and Folate levels to evaluate potentially reversible forms of neuropathy. 17. History of prostate cancer; s/p radiation treatment - Noted. 18. History of GERD; currently not on treatment - Start PPI in light of steroids used to treat #3. 19. OA; with history of Right ankle fracture and Right THR with chronic pain; on as needed tramadol every 4 hours - We will follow pain regimen and scales outlined in #1. 20. DVT/GI prophylaxis - Give enoxaparin 90 mg sq once and continue warfarin. Check PT/INR daily to follow trend and stop bridging with LMWH when INR 2 or greater. Pantoprazole 40 mg PO daily. Total time: Approximately (but not less than) 75 minutes. Charges/Coding Visit Charges Inpatient E&M: 40010 Init Hosp L3
--- NOTE | 2024-09-10 01:46 | ECHOCS_ITS ---
Reason For Study Reason For Study: CHF Procedure This was a 2D Doppler, Color Flow transthoracic echocardiogram. The study was technically difficult. Contrast injection was performed. Patient scanned sitting in chair. Exam performed portable in patient room. Left Ventricle Normal LV size. Left ventricular systolic function is lower limits of normal. The estimated ejection fraction is 53 %. No regional wall motion abnormalities noted. Right Ventricle Mildly dilated right ventricle. Normal systolic function. Atria Normal left atrium. The right atrium is mildly enlarged. Mitral Valve Mild focal mitral valve calcification, bileaflet. Tricuspid Valve Normal tricuspid valve. Mild (1+) tricuspid valve insufficiency. Pulmonary artery systolic pressure is 40 mmHg. Aortic Valve Trisinus/trileaflet aortic valve. Pulmonic Valve Normal pulmonic valve. Great Vessels Normal aortic root. The pulmonary artery is normal size. Inferior vena cava collapse with respiration. Pericardium/Pleural No pericardial effusion. Medication Diluted definity 3ml given slow IV push to enhance endocardial definition. MMode/2D Measurements & Calculations LVIDd: 4.6 cm IVSd: 1.4 cm Ao root diam: 3.3 cm LVIDs: 3.5 cm LVPWd: 1.6 cm FS: 23.9 % LAV(MOD-bp): 57.2 ml LVAd ap4: 23.6 cm2 SV(MOD-sp4): 29.7 ml LAV(MOD-bp) Indexed: 26.6 ml/m2 LVLd ap4: 7.2 cm SI(MOD-sp4): 13.8 ml/m2 LAV(MOD-sp2): 66.3 ml EDV(MOD-sp4): 61.7 ml LAV(MOD-sp4): 42.3 ml EDV(sp4-el): 65.4 ml LVAs ap4: 15.7 cm2 LVLs ap4: 6.5 cm ESV(MOD-sp4): 32.0 ml ESV(sp4-el): 32.5 ml EF(MOD-sp4): 48.2 % EF(sp4-el): 50.4 % SV(sp4-el): 33.0 ml LA A4 area: 15.9 cm2 LA dimension(2D): 5.0 cm RA A4 area: 21.1 cm2 Doppler Measurements & Calculations MV E max larissa: 84.2 cm/sec Ao V2 max: 106.4 cm/sec LV V1 max: 79.3 cm/sec Ao max P.5 mmHg LV V1 max P.5 mmHg Ao V2 mean: 73.5 cm/sec LV V1 mean P.3 mmHg Ao mean P.5 mmHg LV V1 mean: 52.5 cm/sec Ao V2 VTI: 17.5 cm LV V1 VTI: 13.3 cm AV (velocity ratio): 0.76 PA V2 max: 97.2 cm/sec TR max larissa: 302.3 cm/sec PA V2 mean: 71.4 cm/sec TR max P.6 mmHg ECHO/Echo Complete W/ Contrast Interpretation Summary Normal LV size. Left ventricular systolic function is lower limits of normal. The estimated ejection fraction is 53 %. Mild focal mitral valve calcification, bileaflet. Pulmonary artery systolic pressure is 40 mmHg. Ordering Physician: Kristopher Mckee Referring Physician: DUNCAN ZAIDI Performed By: Manju Sahu RCS
--- NOTE | 2024-09-10 01:46 | CT_ITS ---
PROCEDURE: CHEST WITHOUT CONTRAST 09/10/2024 REASON FOR EXAM: SUSPECTED PNA ON CXR. TECHNIQUE: Chest CT without contrast. Coronal and Sagittal reconstruction series were provided. One or more dose reduction techniques were used (e.g., Automated exposure control, adjustment of the mA and/or kV according to patient size, use of iterative reconstruction technique RADIATION DOSE SUMMARY: CTDlvol: 20 mGy DLP: 691 mGycm COMPARISON: CT 02/07/2024, FINDINGS: Unremarkable base of neck and axilla. Thoracic spine scoliosis and degeneration. Normal esophagus. Normal heart size. Status post CABG. Mediastinum is shifted to the left and the right hemidiaphragm is markedly elevated. Gynecomastia. No acute chest wall findings. Cholelithiasis. No acute upper abdominal findings. There is bilateral lower lobe bronchial wall thickening and debris. On the left, there is upper lobe airspace disease favoring atelectasis. There is posterior lower lobe airspace disease, likely a mix of atelectasis and consolidation. On the right, there is posterior upper lobe airspace disease favoring atelectasis. There is lower lobe airspace disease likely a mix of atelectasis and consolidation. No effusion or pneumothorax. CT/Chest without Contrast IMPRESSION: Bilateral airspace disease, correlate for aspiration pneumonia. Reading Location: [place] [address]
--- NOTE | 2024-09-10 01:47 | EKG12_ITS ---
Test Reason : CP ADMIT Blood Pressure : */* mmHG Vent. Rate : 105 BPM Atrial Rate : * BPM P-R Int : * ms QRS Dur : 76 ms QT Int : 300 ms P-R-T Axes : * 13 32 degrees QTcB Int : 396 ms Atrial fibrillation with rapid ventricular response Abnormal ECG When compared with ECG of 15-Mar-2023 13:57, No significant change was found Confirmed by MICHAEL GRAHAM, VERONICA ([id number]), purchase request editor JESUS HERNANDEZ ([id number]) on 09/10/2024 8:29:31 AM Referred By: DR Valencia Confirmed By: VERONICA RODRIGUEZ MD
--- OUTSIDE RECORDS SUMMARY | 2024-09-10 02:10 | XMS RPT_ITS | CCD ---
Author Organization [facility] Care Team Providers Care Inclusion Teacher Name Role Phone Paddy Zaidi MD Primary Care Provider Dr. Shayne Zaidi Primary Care Provider Dr. William Paiz Emergency Provider Dr. Lamberto Dinero Admit Provider Dr. Lamberto Dinero Attending Provider Dr. Lamberto Dinero Other Provider Paddy Zaidi MD Primary Care Provider Dr. Dallas Muller Attending Provider Dr. Dallas Muller Other Provider Dr. Florence Gregg Other Provider Dr. Florence Gregg Attending Provider Paddy Zaidi MD Primary Care Provider [phone] Dr. Lito Pérez Attending Provider Dr. Lamberto Dinero Referring Provider Dr. Shayne Zaidi Referring Provider Daksha VACUUM BOTTLE ASSEMBLER, VACUUM BOTTLE ASSEMBLERYolandaC Shanon Attending Provider [phone] Paddy Zaidi MD Primary Care Provider Tanya SENIOR HRIS ANALYST.OPERATIONS PLANT ATTENDANT, Hever Unavailable Shayne Zaidi Primary Care Unavailable Parkre Metzger Attending Unavailable Shayne Zaidi Primary Care [...] IN] Drug Allergy 5 Mental Status Change [facility] Work Phone: (20 sources) oxyCODONE; Translations: [OXYCODONE] Drug Allergy 9 Other: See Comments [facility] (20 sources) Aspirin; Translations: [ASPIRIN] Drug Allergy 9 Unknown [facility] (1 source) oxyCODONE Drug Allergy 4 [facility] Repository Medications Current Medications Medication Drug Class(es) Dates Sig (Normalized) Sig (Original) [id number] 200 actuat albuterol 0.09 mg/actuat metered dose [...] puff(s) by inhalation every eight hours Ipratropium [place]alla (Atrovent Hfa) 17 mcg/actuation HFA aerosol inhaler [...] 18 ug by inhalation once daily Tiotropium [place] Discontinued 18 MCG IH DAILY September 08, [...] cardiovascular system; Translations: [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] Onset: 12-17-2004 [...] source) Long-term current use of anticoagulant; Translations: [senior care (current) use of anticoagulants] 02-16-2024 Episodic Other aftercare (1 source) senior care (current) use of anticoagulants; Translations: [senior care current use of anticoagulant therapy] Onset: 06-29-2024 [...] Test Name Value Interpretation Reference Range Facility [facility] 09-05-2024 [facility] Letter Text [facility] ARTURO PEDERSEN ([id number]) 1940 M Date Time Provider Department 09/05/24 SUDHA NOE During your visit today, we recorded the following information about you: Shwetha Kendrick 09/05/2024 4:33 PM Signed Lvm and letter Provider only at [place] now Allergies As of Date: 09/05/2024 Noted [...] Anxiety [F41.9] 12/23/2021 Atherosclerotic heart disease of eyak coronar*10/19/2017 Cerebrovascular accident (CVA) (HCC) [I63.9] 12/23/2021 [...] Status:Closed by SHWETHA KENDRICK on 09/05/24 Normal [facility] CNOVon 07-13-2024 CNOV Office Visit (FPWADS ) ARTURO PEDERSEN ([id number]) 1940 M Date Time Provider Department 07/13/24 4:20 PM PADDY ZAIDI FPWADS During your visit today, we recorded the following information about you: Pulse Blood pressure 98/minute 125/76 Paddy Zaidi MD 07/13/2024 5:45 PM Signed Subjective Adrian Pedersen is an 83-year-old male with a history of anxiety, presenting with dyspnea, lower extremity edema, and anxiety attacks, accompanied by his caregiver, Hui Ray, who is providing additional history. Dyspnea atherosclerotic heart disease: Pending electophys eval in [place] in November. No regular review coordinator. 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 (I25.10) - Referral to cardiology in [facility] for further evaluation and management. - Advised [...] - Prescription sent to pharmacy. Recording using [employer] software for draft documentation of the visit was discussed with the patient/authorized branch sales and service representative; all questions welcomed and answered. Patient/authorized branch sales and service representative agreed to proceed Paddy Zaidi MD [...] [E78.00] Idiopathic peripheral neuropathy [G60.9] 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 [I25.10] Order(s):nitroglycerin sublingual (NITROQUICK) 0.3 mg SL tabletDissolve 1 tablet under the tongue every 5 minutes as needed.Disp: 25 tabletRfl: (more content not included)... [facility]2024 [facility] (PULTrudiWS) ARTURO PEDERSEN ([id number]) 1940 M Date Time Provider Department 07/13/24 FLAVIA SMITH PULTrudiWS During your visit today, we recorded the following information about you: Flavia Smith APRN.[facility] 07/13/2024 4:40 PM Signed Review of OSH CT with most recent CT does not show worsening of right hemidiaphragm. Left lower lobe nodule no longer seen. Atelectasis in LLL but no further concern for PNA. Needs to complete overnight oxygen testing. Edwina Jones LPN 07/16/2024 9:23 AM Signed Fax to [employer] for overnight records. KELLY Baker Jennifer, MA 07/16/2024 11:51 AM Signed [facility] calls to report attempts made to connect [...] Anxiety [F41.9] 12/23/2021 Atherosclerotic heart disease of eyak coronar*10/19/2017 Cerebrovascular accident (CVA) (HCC) [I63.9] 12/23/2021 [...] by CLICK, FLAVIA Brush on 07/13/24 Normal [facility] CBC panel Auto (Bld)on 06-29 Erythrocyte distribution width (RBC) [Ratio] 13.9 % Normal 11.5-15.0 [facility] Comment on above: Order Comment: Speci men Type: BLOOD SPECIMENOrdering Facility: [facility] Address: [address] [place] [address] Performed By: #### 5 8410-2 ####[facility] [id number] [place] [address] [place] Hematocrit (Bld) [Volume fraction] 45.0 % Normal 39.0-51.0 [facility] Comment on above: Order Comment: Speci men Type: BLOOD SPECIMENOrdering Facility: [facility] Address: [address] [place] [address] Performed By: #### 5 8410-2 ####[facility] [id number] [address] [place] Hemoglobin (Bld) [Mass/Vol] 14.1 g/dL Normal 13.0-17.0 [facility] Comment on above: Order Comment: Speci men Type: BLOOD SPECIMENOrdering Facility: [facility] Address: [address] [place] [address] Performed By: #### 5 8410-2 ####[facility] [id number] [place] [address] [place] MCH (RBC) [Entitic mass] 29.9 pg Normal 26.0-34.0 [facility] Comment on above: Order Comment: Speci men Type: BLOOD SPECIMENOrdering Facility: [facility] Address: [address] [place] [address] Performed By: #### 5 8410-2 ####[facility] YANGWNCLIA [id number] [place] [address] [place] MCHC (RBC) [Mass/Vol] 31.3 g/dL Normal 30.5-36.0 [facility] Comment on above: Order Comment: Speci men Type: BLOOD SPECIMENOrdering Facility: [facility] Address: [address] [place] [address] Performed By: #### 5 8410-2 ####[facility]ITAL[facility] [id number] [address] [place] MCV (RBC) [Entitic vol] 95.5 fL Normal 80.0-100.[address] [facility] Comment on above: Order Comment: Speci men Type: BLOOD SPECIMENOrdering Facility: [facility] Address: [address] [place] [address] Performed By: #### 5 8410-2 ####[facility] [id number] [place] [address] [place] Nucleated RBC (Bld) [#/Vol] 10*3/uL Normal <0.01 [facility] Comment on above: Order Comment: Speci men Type: BLOOD SPECIMENOrdering Facility: [facility] Address: [address] [place] [address] Performed By: #### 5 8410-2 ####[facility]ENTERLIA [id number] [address] [place] Platelet mean volume (Bld) [Entitic vol] 9.9 fL Normal 9.0-12.7 [facility] Comment on above: Order Comment: Speci men Type: BLOOD SPECIMENOrdering Facility: [facility] Address: [address] [place] [address] Performed By: #### 5 8410-2 ####[facility] [id number] [place] [address] [place] Platelets (Bld) [#/Vol] 164 10*3/uL Normal 150-400 [facility] Comment on above: Order Comment: Speci men Type: BLOOD SPECIMENOrdering Facility: [facility] Address: [address] [place] [address] Performed By: #### 5 8410-2 ####[facility]ITAL[facility]CL[facility] [id number] [place] [address] [place] RBC (Bld) [#/Vol] 4.71 10*6/uL Normal 4.20-6.00 [facility] Comment on above: Order Comment: Speci men Type: BLOOD SPECIMENOrdering Facility: [facility] Address: [address] [place] [address] Performed By: #### 5 8410-2 ####[facility]ITAL[facility]CL[facility] [id number] [place] [address] [place] WBC (Bld) [#/Vol] 11.36 10*3/uL High 3.70-11.00 [facility] Comment on above: Order Comment: Speci men Type: BLOOD SPECIMENOrdering Facility: [facility] Address: [address] [place] [address] Performed By: #### 5 8410-2 ####[facility]ITALNCLIA [id number] [place] [address] [place] CNOVon 06-29-2024 CNOV Office Visit (PULMWS ) ARTURO PEDERSEN ([id number]) 1940 M Date Time Provider Department 06/29/24 1:00 PM FLAVIA SMITH PULWM During your visit today, we recorded the following information about you: Pulse Respiration Blood pressure 69/minute 18/minute 108/64 Flavia Smith APRN.OPERATIONS PLANT ATTENDANT 06/29/2024 7:32 PM Signed Pulmonary Medicine Patients name: Arturo Campbell PCP: Paddy Zaidi MD CC: follow-up HPI: Arturo Pedersen is a 83 year old male former 32-mmtu-bylo smoker quitting in 1992 with PMH significant for obesity, coronary artery disease s/p CABG and stent, previous stroke, GERD, HLD, prostate cancer s/p radiation, HTN, PAF on AC, central sleep apnea not wearing PAP, chronic hypoxemic respiratory failure. Current inhaled therapy Advair and PRN Albuterol. He presents today for follow-up with his management instructor. YOLANDA 03/2024 with exertional dyspnea, chest tightness and wheezing. Started on Advair at that time. Oximetry with ambulation at that time did not show need for supplemental O2 with exertion. He and his management instructor insist he can't even stand up without [...] in acut (more content not included)... Normal [facility] Comprehensive metabolic 2000 panelon 06-29-2024 Albumin [Mass/Vol] 4.0 g/dL Normal 3.9-4.9 [facility] Comment on above: Order Comment: Speci men Type: BLOOD SPECIMENOrdering Facility: [facility] Address: [address] [place] [address] Performed By: #### 2 4323-8 ####[facility] MILLTOWNCLIA [id number] [place] [address] [place] ALP [Catalytic activity/Vol] 123 U/L High 38-113 [facility] Comment on above: Order Comment: Speci men Type: BLOOD SPECIMENOrdering Facility: [facility] Address: [address] [place] [address] Performed By: #### 2 4323-8 ####[facility] MILLWNCLIA [id number] [place] [address] [place] ALT [Catalytic activity/Vol] 12 U/L Normal 10-54 [facility] Comment on above: Order Comment: Speci men Type: BLOOD SPECIMENOrdering Facility: [facility] Address: [address] [place] [address] Performed By: #### 2 4323-8 ####[facility] MILLTOWNCLIA [id number] [place] [address] [place] Anion gap [Moles/Vol] 11 mmol/L Normal 8-15 [facility] Comment on above: Order Comment: Speci men Type: BLOOD SPECIMENOrdering Facility: [facility] Address: [address] [place] [address] Performed By: #### 2 4323-8 ####[facility] MILLTOWNCLIA [id number] [place] [address] [place] AST [Catalytic activity/Vol] 15 U/L Normal 14-40 [facility] Comment on above: Order Comment: Speci men Type: BLOOD SPECIMENOrdering Facility: [facility] Address: [address] [place] [address] Performed By: #### 2 4323-8 ####[facility] EMERALD COASTWNCLIA [id number] [place] [address] [place] Bilirubin [Mass/Vol] 0.8 mg/dL Normal 0.2-1.3 [facility] Comment on above: Order Comment: Speci men Type: BLOOD SPECIMENOrdering Facility: [facility] Address: [address] [place] [address] Performed By: #### 2 4323-8 ####[facility]ITALNCLIA [id number] [place] [address] [place] Calcium [Mass/Vol] 9.5 mg/dL Normal 8.5-10.2 [facility] Comment on above: Order Comment: Speci men Type: BLOOD SPECIMENOrdering Facility: [facility] Address: [address] [place] [address] Performed By: #### 2 4323-8 ####[facility]ITALNCLIA [id number] [place] [address] [place] Chloride [Moles/Vol] 101 mmol/L Normal 98-107 [facility] Comment on above: Order Comment: Speci men Type: BLOOD SPECIMENOrdering Facility: [facility] Address: [address] [place], [place] [address] Performed By: #### 2 4323-8 ####[facility]ITALNCLIA [id number] [place] [address] [place] CO2 [Moles/Vol] 26 mmol/L Normal 22-30 [facility] Comment on above: Order Comment: Speci men Type: BLOOD SPECIMENOrdering Facility: [facility] Address: [address] [place] [address] Performed By: #### 2 4323-8 ####[facility] YANGBROOKVILLENCPRIMARY CHILDREN'S [facility]OSPITAL [id number] [place] [address] [place] Creatinine [Mass/Vol] 0.75 mg/dL Normal 0.73-1.22 [facility] Comment on above: Order Comment: Speci men Type: BLOOD SPECIMENOrdering Facility: [facility] Address: [address] [place] [address] Performed By: #### 2 4323-8 ####[facility]ITALNCLI [id number] [place] [address] [place] Creatinine and Glomerular filtration rate.predicted panel (S/P/Bld) 89 mL/min/1.73m??? Normal >=60 [facility] Comment on above: Order Comment: Speci men Type: BLOOD SPECIMENOrdering Facility: [facility] Address: [address] [place] [address] Result Comment: Calista mated Glomerular Filtration Rate [...] actual GFR. Performed By: #### 2 4323-8 ####[facility]ITALNCLIA [id number] [place] [address] [place] Glucose [Mass/Vol] 111 mg/dL High 74-99 [facility] Comment on above: Order Comment: Speci men Type: BLOOD SPECIMENOrdering Facility: [facility] Address: [address] [place] [address] Result Comment: The [place] Diabetes Association (ADA) provides guidance for cutoff [...] Standards of Medical Care in Diabetes 2016, [place] Diabetes Association. Diabetes Care. 2016.39(Suppl 1). Performed By: #### 2 4323-8 ####[facility]ENTERLIA [id number] [place] [address] [place] Potassium [Moles/Vol] 4.4 mmol/L Normal 3.7-5.1 [facility] Comment on above: Order Comment: Speci men Type: BLOOD SPECIMENOrdering Facility: [facility] Address: [address] [place] [address] Performed By: #### 2 4323-8 ####[facility]ENTERLIA [id number] [place] [address] [place] Protein [Mass/Vol] 6.9 g/dL Normal 6.3-8.0 [facility] Comment on above: Order Comment: Kika bryant Type: BLOOD SPECIMENOrdering Facility: [facility] Address: [address] [place] [address] Performed By: #### 2 4323-8 ####[facility]ENTERLIA [id number] [place] [address] [place] Sodium [Moles/Vol] 138 mmol/L Normal 136-144 [facility] Comment on above: Order Comment: Lanii men Type: BLOOD SPECIMENOrdering Facility: [facility] Address: [address] [place] [id number] Performed By: #### 2 4323-8 ####[facility]ENTERLIA [id number] [place] [address] [place] Urea nitrogen [Mass/Vol] 23 mg/dL Normal 9-24 [facility] Comment on above: Order Comment: Speci men Type: BLOOD SPECIMENOrdering Facility: [facility] Address: [address] [place] [address] Performed By: #### 2 4323-8 ####[facility] EMERALD COASTWNCLIA [id number] [place] [address] [place] Lipid 1996 panelon 5 Cholesterol [Mass/Vol] 125 mg/dL Normal <[address] [facility] Comment on above: Order Comment: Speci men Type: BLOOD SPECIMENOrdering Facility: [facility] Address: [address] [place] [address] Result Comment: <200 mg/dL, Desirable 200-239 mg/dL, Borderline high >239 mg/dL, High Performed By: #### 2 4331-1 ####[facility] LABCLIA [id number] [address] [place] [address] [place] [facility] [id number] [place] [address] [place]#### 3016-3 ####[facility] LABCLIA [id number] [address] [place] [address] [place] Cholesterol in HDL [Mass/Vol] 44 mg/dL Normal >39 [facility] Comment on above: Order Comment: Speci men Type: BLOOD SPECIMENOrdering Facility: [facility] Address: [address] [place] [address] Result Comment: 40-5 9 mg/dL, Acceptable >59 mg/dL, High: Negative risk factor for coronary heart disease <40 mg/dL, Low: Positive risk factor for coronary heart disease Performed By: #### 2 4331-1 ####[facility] LABCLIA [id number] [facility]ALK [address] [place] [address] [place] AMERICAHCA FL[facility]IDA WE[facility] [id number] [address]#### 3016-3 ####[facility] [id number] [address] Cholesterol in LDL [Mass/Vol] 66 mg/dL Normal <100 [facility] Comment on above: Order Comment: Speci men Type: BLOOD SPECIMENOrdering Facility: [facility] Address: [address] [place] [address] Result Comment: <100 mg/dL, Optimal 100-129 mg/dL, Near optimal/above optimal 130-159 mg/dL, Borderline high 160-189 mg/dL, High >189 mg/dL, Very high Secondary prevention optimal LDL Cholesterol levels are recommended to be <70 mg/dL LDL cholesterol is calculated using the Yost-NIH equation. Performed By: #### 2 4331-1 ####[facility] [id number] [address] [id number] [address]#### 3016-3 ####[facility] [id number] [address] Cholesterol in LDL/Cholesterol in HDL [Mass ratio] 1.50 {ratio} Normal <2.54 [facility] Comment on above: Order Comment: Speci men Type: BLOOD SPECIMENOrdering Facility: [facility] Address: [address] [place] [address] Result Comment: Ana red: 1. National Cholesterol Education Program ATP III Guideline At-A-Glance Quick Desk Reference: National Heart, Lung, and Blood [place]. National Institutes of Health. 2001: NIH Publication No. 01-3305. 2. An International Atherosclerosis Society position paper: global recommendations for the management of dyslipidemia: executive summary, Atherosclerosis. 2014: 232(2):410-413. Performed By: #### 2 4331-1 ####[facility] LABCLIA [id number] [facility]OSPITALK [address] [place] [address] [place] [facility] [id number] [address] [place]#### 3016-3 ####[facility] LABCLIA [id number] [facility]ITALK [address] [place] [address] [place] Cholesterol in VLDL [Mass/Vol] 11 mg/dL Normal <30 [facility] Comment on above: Order Comment: Speci men Type: BLOOD SPECIMENOrdering Facility: [facility] Address: [address] [place] [address] Performed By: #### 2 4331-1 ####[facility] LABCLIA [id number] [address] [place] [address] [place] [facility] [id number] [place] [address] [place]#### 3016-3 ####[facility] LABCLIA [id number] [address] [place] [address] [place] Cholesterol non HDL [Mass/Vol] 81 mg/dL Normal <130 [facility] Comment on above: Order Comment: Speci men Type: BLOOD SPECIMENOrdering Facility: [facility] Address: [address] [place] [address] Result Comment: <130 mg/dL, Optimal 130-159 mg/dL, Near optimal/above optimal 160-189 mg/dL, Borderline high 190-219 mg/dL, High >219 mg/dL, Very high Secondary prevention optimal non HDL Cholesterol levels are recommended to be <100 mg/dL Performed By: #### 2 4331-1 ####[facility] LABCLIA [id number] [facility]ITALK [address] [place] [address] [facility] [id number] [place] [address] [place]#### 3016-3 ####[facility] LABCLIA [id number] [place] [address] [place] Cholesterol.total/Choles terol in HDL [Mass ratio] 2.84 {ratio} Normal <5.10 [facility] Comment on above: Order Comment: Speci men Type: BLOOD SPECIMENOrdering Facility: [facility] Address: [address] [place] [address] Performed By: #### 2 4331-1 ####[facility] LABCLIA [id number] [address] OF [facility] [id number] [place] [address] [place]#### 3016-3 ####[facility] LABCLIA [id number] [place] [address] [place] FASTING TIME 12 hrs Normal [facility] Comment on above: Order Comment: Speci men Type: BLOOD SPECIMENOrdering Facility: [facility] Address: [address] [place] [address] Performed By: #### 2 4331-1 ####[facility] LABCLIA [id number] [address] STATES OF [facility] [id number] [address] [place]#### 3016-3 ####[facility] LABCLIA [id number] [place] [id number] [place] Triglyceride [Mass/Vol] 71 mg/dL Normal <[address] [facility] Comment on above: Order Comment: Speci men Type: BLOOD SPECIMENOrdering Facility: [facility] Address: [address] [place] [address] Result Comment: <150 mg/dL, Normal 150-199 mg/dL, Borderline high 200-499 mg/dL, High >499 mg/dL, Very high Performed By: #### 2 4331-1 ####[facility] LABCLIA [id number] [address] STATES OF [facility] [id number] [address]#### 3016-3 ####[facility] [id number] [address] [place] PT panel Coag (PPP)on 2024 INR Coag (PPP) [Relative time] 1.2 {INR} Normal 0.9-1.3 [facility] Comment on above: Order Comment: Speci men Type: BLOOD SPECIMENOrdering Facility: [facility] Address: [address] [place] [address] Result Comment: Marilee min K Antagonist (VKA) Therapeutic Range: INR 2 to 3 (Target INR of 2.5) Note: For patients treated with VKA drugs, such as warfarin, the [place] [employer] 2012 Guideline recommends [...] 70: 252-289 Performed By: #### 3 4528-0 ####[facility] [id number] [address] [place] PT Coag (PPP) [Time] 12.6 s Normal <13.1 [facility] Comment on above: Order Comment: Speci men Type: BLOOD SPECIMENOrdering Facility: [facility] Address: [address] [place] [address] Performed By: #### 3 4528-0 ####[facility] [id number] [address] TSH SerPl-aCncon 06-29-2024 TSH Qn 2.210 m[IU]/L Normal 0.270-4.200 [facility] Comment on above: Order Comment: Speci men Type: BLOOD SPECIMENOrdering Facility: [facility] Address: [address] [place] [address] Performed By: #### 2 4331-1 ####[facility] LABCLIA [id number] [address] [id number] [address]#### 3016-3 ####[facility] LABCLIA [id number] [address] CNOVon 03-27-2024 CNOV Office Visit (PULMWS ) ARTURO PEDERSEN ([id number]) 1940 M Date Time Provider Department 03/27/24 2:00 PM FLAVIA SMITH PULMWS During your visit today, we recorded the following information about you: Pulse Respiration Blood pressure 90/minute 18/minute 122/80 Flavia Smith, SENIOR HRIS ANALYST.OPERATIONS PLANT ATTENDANT 03/27/2024 5:53 PM Signed Pulmonary Medicine Patients name: Arturo Campbell PCP: Paddy Zaidi MD CC: follow-up HPI: Arturo Pedersen is a 83 year old male former 25-svtk-snsd smoker quitting in 1992 with PMH significant [...] Had also just previously been hospitalized at [facility] for Pneumonia. At his last visit, [...] tightness. Has frequent wheezing that prompts his management instructor to remind him to use Albuterol. No [...] 160-9-4.8 mcg/actuation HFA aerosol inhaler Generic drug: pjwcfojaws-pgoxmshx-srx moterol Inhale 2 Puffs as instructed two [...] for arthra (more content not included)... Normal [facility] CT CHEST WO IVCONon 03-27-19 CT CHEST WO IVCON * * *Final Report* * * DATE OF EXAM: Mar 27 2024 3:54PM [facility] 0541 - CT CHEST WO [...] enlargement. Status post CABG surgery with severe eyak coronary artery atherosclerotic calcifications are noted, although [...] significantly enlarged lymph nodes in the chest. Rn Hospital: [facility] Transcribe Date/Time: Mar 31 2024 5:10P Dictated by : VIDA CAAL MD This examination was interpreted and the report reviewed and electronically signed by: VIDA CAAL MD on Mar 31 2024 5:18PM EST [id number] Normal [facility] OXIMETRY WITH AMBULATIONon 0 03-27-2024 Shelly Sims [...] Supply Carrier Forehead 30 Wheeled Walker NAME: MAYR Guillaume PATIENT NAME: Arturo Salinasgess DATE: March 27, 2024 TIME: 1:49 PM Comment: Patient does not have a faster pace [facility] Tessa 03-21-2024 [facility] Telephone (ELIZABETH) PEDERSENARTURO Mann ([id number]) 1940 M Date Time Provider Department 03/21/24 [...] TABLET BY MOUTH ONCE DAILY DIRECTED - yenfeitezq-nzhwipov-upj moterol (BREZTRI AEROSPHERE) 160-9-4.8 mcg/actuation HFA aerosol [...] Anxiety [F41.9] 12/23/2021 Atherosclerotic heart disease of eyak coronar*10/19/2017 Cerebrovascular accident (CVA) (HCC) [I63.9] 12/23/2021 [...] acute postp (more content not included)... Normal [facility] CNPNon 03-06-2024 CNPN Telephone (PULTrudiWS) ARTURO PEDERSEN ([id number]) 1940 M Date Time Provider Department 03/06/24 RAINA HUYNH During your visit today, we recorded the following information about you: Judy Wong MA 03/06/2024 9:29 AM Signed Analilia - Pharmacist from [facility] calling and asking if there is [...] Fully Assessed Prescriptions as of 03/08/2024 - mxblojvzbl-mqtgkgjz-cso moterol (BREZTRI AEROSPHERE) 160-9-4.8 mcg/actuation HFA aerosol [...] Anxiety [F41.9] 12/23/2021 Atherosclerotic heart disease of eyak coronar*10/19/2017 Cerebrovascular accident (CVA) (HCC) [I63.9] 12/23/2021 [...] Status:Closed by EDWINA JONES on 03/08/24 Normal [facility] Telephone (FPWADS) ARTURO PEDERSEN ([id number]) 1940 M Date Time Provider Department 03/06/24 [...] a day. Call Hui back with response [phone] advise her to clean out VM so we can leave messages. FREIDA Olivarez Jeffery R, MD 03/16/2024 5:19 PM Signed Just take 1 time dose of 5 mg. One extra pill just one dose. Check INR in 2 weeks MD True Sheehan Mary Kay, FREIDA 03/17/2024 9:32 AM Signed Called Hui at [phone] Vm still full-could not leave message. Called all other listed numbers- no answer. VM's are all full-could not leave message. Not active on MyChart. Will need to try again later. FREIDA Olivarez, Natalia, RN 03/19/2024 10:52 AM Signed Called [phone]. No answer. Mailbox still full. Isabell Sood, [...] TABLET BY MOUTH ONCE DAILY DIRECTED - mxliuugcsn-hyahhujz-mac moterol (BREZTRI AEROSPHERE) 160-9-4.8 mcg/actuation HFA aerosol [...] Anxiety [F41.9] 12/23/2021 Atherosclerotic heart disease of eyak coronar*10/19/2017 Cerebrovascular accident (CVA) (HCC) [I63.9] 12/23/2021 [...] cord [J38 (more content not included)... Normal [facility] CNOVon 03-05-2024 CNOV Office Visit (PULMWS ) ARTURO PEDERSEN ([id number]) 1940 M Date Time Provider Department 03/05/24 3:15 PM RAINA HUYNH PULMWS During your visit today, we recorded the following information about you: Pulse Respiration Blood pressure Weight 112/minute 14/minute 122/68 96.2 kg Height 1.715 m Raina Huynh MD 03/05/2024 4:00 PM Signed . Respiratory [place] Note Patient name: Arturo Pedersen PCP: Paddy Zaidi MD Referring Physician: Hever Martínez CNP Consultation requested by Hever Martínez for an opinion regarding COPD. My final recommendations will be communicated back to the requesting physician by way of shared Medical record or letter to requesting physician via US mail. CC: COPD HPI: Arturo Pedersen 83 year old male former 64-cljj-agaf smoker quitting in 1992 with PMH significant for obesity, coronary artery disease s/p CABG and stent, previous stroke, GERD, HLD, prostate cancer s/p radiation, HTN, PAF on AC, central sleep apnea not wearing PAP, chronic hypoxemic respiratory failure being sent for evaluation of COPD. Recently hospitalized at [facility] for pneumonia. CT of the chest [...] recurrent bronchitis. DME: [employer] DATA: PFT: PFT [facility] 10/23/2018; FVC 2.41 L 57% FEV1 1.62 L 54% FEV1/FVC 67% No improvement post-bronchodilator TLC 5.01 L 76% RV 2.60 L 94% RV/TLC 52% DLCO 15.2 73% Imaging / Diagnostic Studies: [facility] MR#: [id number] Acct: [id number] Name: ARTURO PEDERSEN Rep #: [id number] : 1940 M 83 From: Shayne Holt [...] the tongue every 5 minutes as needed. wqrjlmdycx-ykmdzeyl-fri moterol (BREZTRI AEROSPHERE) 160-9-4.8 mcg/actuation HFA aerosol inhaler Inhale 2 Puffs as instructed two times a day. albuterol HFA (PROVENTIL HFA, VENTOLIN HFA) 90 mcg/actuation inhaler Inhale 2 Puffs as instructed every 4 hours as needed for wheezing/shortness of breath. warfarin (COUMADIN) (more content not included)... Normal [facility] No Panel Informationon 03-05 DLCO (ml/min/mmHg) 12.07 ml/min/mmHg [facility] DLCO LLN (ml/min/mmHg) 11.87 ml/min/mmHg C [facility] DLCO PREDICTED (ml/min/mmHg) 21.80 ml/min/mmHg [facility] DLCO ULN (ml/min/mmHg) 31.74 ml/min/mmHg [facility] DLCO/VA (ml/min/mmHg/L) 4.14 ml/m in/mmHg/ L [facility] DLCO/VA PREDICTED (ml/min/mmHg/L) 3.63 ml/min/mmHg/ L [facility] DLCOcor PREDICTED (ml/min/mmHg) 21.80 ml/min/mmHg [facility] ERV PREDICTED (L) 1.12 L/S [facility] FEF25% POST (L/S) 3.52 L/S [facility] FEF25% PRE (L/S) 2.38 L/S [facility] QNG33-34% LLN (L/S) 0.63 L/S [facility] MXJ41-80% POST (L/S) 0.46 L/S [facility] YUO28-64% PRE (L/S) 0.42 L/S [facility] OLI24-97% PREDICTED (L/S) 1.77 L/S [facility] FEF75% LLN (L/S) 0.13 L/S [facility] FEF75% POST (L/S) 0.13 L/S [facility] FEF75% PRE (L/S0 0.14 L/S [facility] FEF75% PREDICTED (L/S) 0.41 L/S [facility] FEF75% ULN (L/S) 1.23 L/S [facility] FET POST (S) 10.37 S [facility] FET PRE (S) 11.27 S [facility] FEV1 LLN (L) 1.76 L [facility] FEV1 PRE (L) 1.19 L [facility] FEV1 PREDICTED (L) 2.46 L [facility] FEV1 ULN (L) 3.11 L [facility] FEV1/FVC LLN (%) 61 % [facility] FEV1/FVC POST (%) 64 % [facility] FEV1/FVC PRE (%) 60 % [facility] FEV1/FVC PREDICTED (%) 76 % [facility] FEV1_POST (L) 1.23 L [facility] FVC LLN (L) 2.46 L [facility] FVC POST (L) 1.93 L [facility] FVC PRE (L) 1.97 L [facility] FVC PREDICTED (L) 3.35 L [facility] FVC ULN (L) 4.26 L [facility] IC PREDICTED (L) 2.24 L/S [facility] PEF LLN (L/S) 3.95 L/S [facility] PEF POST (L/S) 4.29 L/S [facility] PEF PRE (L/S) 4.00 L/S [facility] PEF ULN (L/S) 8.26 L/S [facility] SVC LLN (L) 2.46 L/S [facility] SVC PREDICTED (L) 3.35 L/S [facility] SVC ULN (L) 4.26 L/S [facility] VA (L) 2.92 L [facility] VA PREDICTED (L) 6.34 L [facility] [address], [place] [address] Test Date: 2024-03-05 Pat Name: ARTURO PEDERSEN Department: Room: Gender: M 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 PULMONARY FUNCTION LAB [facility] PT panel Coag (PPP)on 2024 INR Coag (PPP) [Relative time] 1.5 {INR} High 0.9-1.3 [facility] Comment on above: Order Comment: Speci men Type: BLOOD SPECIMEN [facility] Address: [address] [place] [address] Result Comment: Marilee min K Antagonist (VKA) Therapeutic Range: INR 2 to 3 (Target INR of 2.5) Note: For patients treated with VKA drugs, such as warfarin, the [place] [employer] 2012 Guideline recommends [...] Chest 2012, 141:7S-47S Alvino RA, et al. [facility] 2017, 70: 252-289 Performed By: #### 3 4528-0 #### [facility] [id number] [address] [place] [address] [place] PT Coag (PPP) [Time] 15.8 s High <13.1 [facility] Comment on above: Order Comment: Speci men Type: BLOOD SPECIMEN Ordering Facility: [facility] Address: [address] [place] [address] Performed By: #### 3 4528-0 #### [facility] [id number] [address] [place] [address] [place] CNPRadha 02-[facility]-2024 [facility]FP[facility] ART[facility] PEDERSEN ([id number]) 1940 M Date Time Provider Department 02/15/24 [...] of symptoms: N/A Hui Call patient at: [phone] (home) [phone] (cell) Was an appointment scheduled: No Closing [...] mouth daily as directed. Authorizing Provider: PADDY ZIADI INR ordered for 1x per week, standing order for [place] lab. Once he's on a steady dose can cut this back to 1x per sergio . MD Marissa Sheehan Lisa, LPN 02/16/2024 10:22 AM Signed Patients son aware that medication was sent to [facility] in [place]. Son stated he understood that blood work needed drawn in 1 week in [place]. Allergies As of Date: 02/15/2024 Noted Allergy Reaction ASPIRIN 04/19/2018 16 - Unknown OXYCODONE 04/19/2018 14 - Other: See Comments PERCODAN (OXYCODONE-ASPIRIN) 12/17/2004 1 - Mental Status Change Date Reviewed: 02/14/2024 Reviewed by: Talia Ann LPN - Fully Assessed Reason for Visit: Medication Problem [65] Primary Visit Diagnosis:Chronic atrial fibrillation (HCC) [I48.20] Other Visit Diagnosis:oysterman current use of anticoagulant therapy [Z79.01] Order(s):warfarin (COUMADIN) 2.5 mg tabletTake 1 tablet by mouth daily as directed.Disp: 30 tabletRfl: 0 PROTHROMBIN TIME [SQPT] Order #: [id number] STANDING Prescriptions as of 02/16/2024 - warfarin [...] Anxiety [F41.9] 12/23/2021 Atherosclerotic heart disease of eyak coronar*10/19/2017 Cerebrovascular accident (CVA) (HCC) [I63.9] 12/23/2021 [...] stent [ (more content not included)... Normal [facility] CNOVon 02-14-2024 CNOV Office Visit (FPWADS ) ARTURO PEDERSEN ([id number]) 1940 M Date Time Provider Department 02/14/24 2:00 PM HEVER MARTÍNEZ FPWADS During your visit today, we recorded the following information about you: Pulse Blood pressure 96/minute 132/78 Hever Martínez APRN.OPERATIONS PLANT ATTENDANT 02/14/2024 4:39 PM Signed This note was created using NoteWriter. Subjective Arturo Mario is a 83 year old male. Patient here with live source operator. Treated for RLL pneumonia at the ER, [...] of AFIB and CAD, never seen a review coordinator. Uses walker for ambulation, sleeps in the [...] HIP FRACTURE(S) Left 11/2017 hip screw placed [facility] ALLERGIES Aspirin, Oxycodone, and Percodan [Oxycodone-Aspirin] [...] Chronic obstructive pulmonary disease, unspecified COPD type ([facility]) Recommend to establish care with team member, continue oxygen. - CONSULT TO PULMONARY MEDICINE 3. Adjustment disorder with mixed anxiety an (more content not included)... Normal [facility] Tessa 02-14-2024 [facility] (FPWADS[facility] ARTURO PEDERSEN ([id number]) 1940 M Date Time Provider Department 02/14/24 [...] Authorizing Provider: PADDY ZAIDI MD Hummel, Megan, APRN.OPERATIONS PLANT ATTENDANT 02/15/2024 9:01 AM Signed New Rx sent [...] Anxiety [F41.9] 12/23/2021 Atherosclerotic heart disease of eyak coronar*10/19/2017 Cerebrovascular accident (CVA) (HCC) [I63.9] 12/23/2021 [...] Encounter Status:Closed by SHAYNE ZAIDI on 02/14/24 [facility] Telephone (POOJAWAPATY) ARTURO PEDERSEN ([id number]) 1940 M Date Time Provider Department 02/14/24 HEVER MARTÍNEZ During your visit today, we recorded the following information about you: Lacie Muñoz 02/14/2024 4:12 PM Signed 1st attempt to reach for scheduling, left voicemail. Adrian was seen at [place] [facility] today, and Hever referred him to see Pulmonology. He was unable to stay for scheduling but he and his caregiver said they would like to do all the appointments at [place]. Although there are many available times to [...] patients son and [place] pul[place] Allergies As of Date: 02/14/2024 Noted Allergy [...] Anxiety [F41.9] 12/23/2021 Atherosclerotic heart disease of eyak coronar*10/19/2017 Cerebrovascular accident (CVA) (HCC) [I63.9] 12/23/2021 [...] Encounter Status:Closed by LACIE MUÑOZ on 02/14/24 [facility] Tessa 02-13-2024 [facility] Telephone (FPWAPATY) ARTURO PEDERSEN ([id number]) 1940 M Date Time Provider Department 02/13/24 PADDY ZAIDI During your visit today, we recorded the following information about you: Ge Will LPN 02/13/2024 11:29 AM Signed Received visit summary for SOB from [facility]. Placed in provider's inbox for review. Route to MA scanning Allergies As of Date: 02/13/2024 Noted Allergy Reaction ASPIRIN 04/19/2018 16 - Unknown OXYCODONE 04/19/2018 14 - Other: See Comments PERCODAN (OXYCODONE-ASPIRIN) 12/17/2004 1 - Mental Status Change Date Reviewed: 06/07/2023 Reviewed by: Ge Will LPN - Fully Assessed Reason for Visit: Received Outside Medical Records [1686] Cmt: [facility] ED Prescriptions as of 02/13/2024 - [...] Anxiety [F41.9] 12/23/2021 Atherosclerotic heart disease of eyak coronar*10/19/2017 Cerebrovascular accident (CVA) (HCC) [I63.9] 12/23/2021 [...] Status:Closed by GE WILL on 02/13/24 Normal [facility] Basic Metabolic Profile (BMP )on 02-07-2024 BUN/CRE 27.3 RATIO High 10-20 [facility] Comment on above: Performed By: #### L 100.0100, L500.2500 #### [facility] [address] [place], [address] CA,Total 9.5 mg/dL Normal 8.5-10.1 [facility] Comment on above: Performed By: #### L 100.0100, L500.2500 #### [facility] [address] [place], [address] Chloride [Moles/Vol] 102 mmol/L Normal 98-107 [facility] Comment on above: Performed By: #### L 100.0100, L500.2500 #### [facility] [address] [place], [address] CO2 [Moles/Vol] 32.0 mmol/L Normal 21.0-32.0 [facility] Comment on above: Performed By: #### L 100.0100, L500.2500 #### [facility] [address] [place], [address] Creatinine [Mass/Vol] 0.81 mg/dL Normal 0.70-1.[address] [facility] Comment on above: Result Comment: The validity of the calculated GFR GFRAA in patients over 70 years has not been determined. Clinical correlation is essential. Performed By: #### L 100.0100, L500.2500 #### [facility] [address] [place], [address] EST GFR - AA 117 mL/min Normal >60 [facility] Comment on above: Result Comment: Afri can [place] GFR Calc Performed By: #### L 100.0100, L500.2500 #### [facility] [address] [place], [address] GAP 3 Low 5-15 [facility] Comment on above: Performed By: #### L 100.0100, L500.2500 #### [facility] [address] [place], [address] GFR/1.73 sq M.predicted among non-blacks MDRD (S/P/Bld) [Vol rate/Area] 97 mL/min/{1.73_m2} Normal >60 [facility] Comment on above: Result Comment: Non- GFR Calc Performed By: #### L 100.0100, L500.2500 #### [facility] [address] [place], [address] Glucose [Mass/Vol] 117 mg/dL High 74-106 [facility] Comment on above: Result Comment: Fast ing Glucose result from 100 to 125 mg/dL suggests IMPAIRED HOMEOSTASIS per A.D.A. criteria. Performed By: #### L 100.0100, L500.2500 #### [facility] [address] [place], [address] Potassium [Moles/Vol] 4.6 mmol/L Normal 3.5-5.[address] [facility] Comment on above: Performed By: #### L 100.0100, L500.2500 #### [facility] [address] [place], [address] Sodium [Moles/Vol] 137 mmol/L Normal 136-145 [facility] Comment on above: Performed By: #### L 100.0100, L500.2500 #### [facility] [address] [place], [address] Urea nitrogen [Mass/Vol] 22 mg/dL High 7-18 [facility] Comment on above: Performed By: #### L 100.0100, L500.2500 #### [facility] [address] [place], [address] CBC W/Diff, Automatedon 12-3 -2023 Absolute Lymph 0.90 X10 3/uL Normal 0.83-4.51 [facility] Comment on above: Performed By: #### L 100.0100, L500.2500 #### [facility] [address] [place], [address] Absolute Neut 12.6 X10 3/uL High 2.0-7.7 [facility] Comment on above: Performed By: #### L 100.0100, L500.2500 #### [facility] [address] [place], [address] Basophils/100 WBC (Bld) 0.7 % Normal 0-1 [facility] Comment on above: Performed By: #### L 100.0100, L500.2500 #### [facility] [address] [place], [address] Eosinophils/100 WBC (Bld) 1.4 % Normal 0-5 [facility] Comment on above: Performed By: #### L 100.0100, L500.2500 #### [facility] [address] [place], [address] Erythrocyte distribution width (RBC) [Ratio] 13.2 % Normal 11.6-14.6 [facility] Comment on above: Performed By: #### L 100.0100, L500.2500 #### [facility] [address] [place], [address] Hematocrit (Bld) [Volume fraction] 46.2 % Normal 40-54 [facility] Comment on above: Performed By: #### L 100.0100, L500.2500 #### [facility] [address] [place], [address] Hemoglobin (Bld) [Mass/Vol] 14.5 g/dL Normal 13.0-16.5 [facility] Comment on above: Performed By: #### L 100.0100, L500.2500 #### [facility] [address] [place], [address] IG% 1.200 High 0.0-0.9 [facility] Comment on above: Result Comment: IG% - Immature Granulocytes (promyelocytes, myelocytes and metamyelocytes) > 1% indicates that a LEFT SHIFT is Present. Performed By: #### L 100.0100, L500.2500 #### [facility] [address] [place], [address] Lymphocytes/100 WBC (Bld) 6.1 % Low 19-41 [facility] Comment on above: Performed By: #### L 100.0100, L500.2500 #### [facility] [address] [place], [address] MCH (RBC) [Entitic mass] 31.1 pg Normal 27.0-32.0 [facility] Comment on above: Performed By: #### L 100.0100, L500.2500 #### [facility] [address] [place], [address] MCHC (RBC) [Mass/Vol] 31.4 g/dL Low 32-[address] [facility] Comment on above: Performed By: #### L 100.0100, L500.2500 #### [facility] [address] [place], [address] MCV (RBC) [Entitic vol] 99.1 fL High 80-94 [facility] Comment on above: Performed By: #### L 100.0100, L500.2500 #### [facility] [address] [place], [address] Monocytes/100 WBC (Bld) 5.0 % Normal 0-10 [facility] Comment on above: Performed By: #### L 100.0100, L500.2500 #### [facility] [address] [place], [address] Neutrophils/100 WBC (Bld) 85.6 % High 47-70 [facility] Comment on above: Performed By: #### L 100.0100, L500.2500 #### [facility] [address] [place], [address] Nucleated RBC (Bld) [#/Vol] 0 10*3/uL Normal 0-5 [facility] Comment on above: Performed By: #### L 100.0100, L500.2500 #### [facility] [address] [place], [address] Platelet mean volume (Bld) [Entitic vol] 8.7 fL Normal 6.2-12.0 [facility] Comment on above: Performed By: #### L 100.0100, L500.2500 #### [facility] [address] [place], [address] Platelets (Bld) [#/Vol] 243 10*3/uL Normal 150-450 [facility] Comment on above: Performed By: #### L 100.0100, L500.2500 #### [facility] [address] [place], [address] RBC (Bld) [#/Vol] 4.66 10*6/uL Normal 4.6-6.2 [facility] Comment on above: Performed By: #### L 100.0100, L500.2500 #### [facility] [address] [address], [address] RDW SD 47.5 fl High 35.1-43.9 [facility] Comment on above: Performed By: #### L 100.0100, L500.2500 #### [facility] Laboratory [address] [place], [address] WBC (Bld) [#/Vol] 14.7 10*3/uL High 4.4-11.0 [facility] Comment on above: Performed By: #### L 100.0100, L500.2500 #### [facility] Laboratory [address] [place], [address] CTA Chest W/WO Contraston CTA Chest W/WO Contrast [facility] Imaging Services [address] [address] CTA Chest W/WO Contrast MR#: [id number] Acct: [id number] Name: ARTURO PEDERSEN Rep #: [id number] : 1940 M 83 From: Shayne Holt MD PCP: Dr. Shayne Zaidi MD Status: [facility] ER Study: CTA Chest W/WO Contrast Date of Exam: 02/07/24 Exam# [id number] Ordering Dr: [place] [id number] STUDY: CTA CHEST REASON FOR EXAM: Male, [...] 17:49 EST Reading Location ID and State: [address] [place] [address] Tel , Service support , CC: Dr. Alpa Jeffries DO; Dr. Shayne Zaidi MD Rn Hospital: Signed Normal [facility] Chest 1 View (Portable)on Chest 1 View (Portable) [facility] Imaging Services [address] [place] [phone] Chest 1 View (Portable) MR#: [id number] Acct: [id number] Name: ARTURO PEDERSEN Rep #: [id number] : 1940 M 83 From: Uriel Moody PCP: Dr. Shayne Zaidi MD Status: PRE ER Study: Chest 1 View (Portable) Date of Exam: 02/07/24 Exam# [id number] Ordering Dr: Yevgeniy Reis [id number] INDICATION: COUGH EXAMINATION/TECHNIQUE: X-RAY - XR Chest [...] Dr. Shayne Zaidi MD; ED PHYSICIAN PROVIDER Rn Hospital: Signed Normal [facility] Emergency Department Summary on 02-07-2024 Emergency Department Summary [facility] Medical Records Department [address] [place] [address] Emergency Department Summary 02/07/24 MR#: [id number] Acct: [id number] Name: ARTURO PEDERSEN Rep #: [id number] : 1940 83 From: Alpa Jeffries DO [...] other complaints or concerns at this time. [facility] Medical History Atherosclerosis of coronary artery of eyak heart without angina pectoris Prostate CA Stroke [...] or myalgias Integumen (more content not included)... [facility] M100.678on 02-07-2024 M100.678 Pending SARS-CoV-2 (COVID 19) Negative INFLUENZA A Negative INFLUENZA B Negative RSV PCR Negative Normal [facility] Comment on above: Performed By: #### M 100.678 ####[facility] [address] [place], [address] Urinalysis, Completeon 02-06 BACTERIA RARE Normal None Seen [facility] Comment on above: Order Comment: COLLE CTOR TO SPECIFY Performed By: #### L 400.0001 #### [facility] Laboratory [address] [place], [address] EPI,SQUAMOUS 0-5 SEEN Normal 0-5 [facility] Comment on above: Order Comment: ALFONSO CTOR TO SPECIFY Performed By: #### L 400.0001 #### [facility] Laboratory [address] [place], [address] Mucus Ql (Urine sed) RARE Normal [facility] Comment on above: Order Comment: COLLE CTOR TO SPECIFY Performed By: #### L 400.0001 #### [facility] Laboratory [address] [place], [address] WBC 5-10 SEEN Normal 0-5 [facility] Comment on above: Order Comment: COLLE CTOR TO SPECIFY Performed By: #### L 400.0001 #### [facility] Laboratory [address] [place], [address] RBC 0 SEEN Normal 0-5 [facility] Comment on above: Order Comment: COLLE CTOR TO SPECIFY Performed By: #### L 400.0001 #### [facility] Laboratory [address] [place], [address] CNPNon [facility]2023 [facility] ARTURO ([id number]) 1940 M Date Time Provider Department 12/21/23 PADDY ZAIDI During your visit today, we recorded the following information about you: Ge Will LPN 12/21/2023 3:29 PM Signed Received annual oxygen rx from [employer]. Placed in provider's inbox for review. Route to [place] fax Allergies As of Date: 12/21/2023 Noted Allergy Reaction ASPIRIN 04/19/2018 16 - Unknown OXYCODONE 04/19/2018 14 - Other: See Comments PERCODAN (OXYCODONE-ASPIRIN) 12/17/2004 1 - Mental Status Change Date Reviewed: 06/07/2023 Reviewed by: Ge Will LPN - Fully Assessed Reason for Visit: Orders [681] Cmt: [facility] annual oxygen rx Prescriptions as of 12/21/2023 [...] Anxiety [F41.9] 12/23/2021 Atherosclerotic heart disease of eyak coronar*10/19/2017 Cerebrovascular accident (CVA) (HCC) [I63.9] 12/23/2021 [...] Status:Closed by GE WILL on 12/21/23 Normal [facility] Absolute lymphocyte countOrd ered By: Parker Metzger on 03-15-2023 Lymphocytes Auto (Unsp spec) [#/Vol] 0.80 10*3/uL 0.83-4.51 [facility] Automated blood erythrocyte count (number/volume)Ordered By: Parker Metzger on 03-15-2023 RBC (Bld) [#/Vol] 4.29 10*6/uL Low 4.6-6.2 [facility] Comment on above: Performed By: #### L 100.0100, L500.4050, L503.6005 #### [facility] Laboratory [address] [place], [address] Automated blood hematocrit ( percentage)Ordered By: Parker Metzger on 03-15-2023 Hematocrit (Bld) [Volume fraction] 42.9 % Normal 40-54 [facility] Comment on above: Performed By: #### L 100.0100, L500.4050, L503.6005 #### [facility] Laboratory [address] [place], [address] Automated lymphocyte count a s percentage of total leukocytesOrdered By: Parker Metzger on 03-15-2023 Lymphocytes/100 WBC Auto (Unsp spec) 8.8 % 19-41 [facility] Basophil percentageOrdered B y: Parker Metzger on 03-15-2023 Lactate [Moles/Vol] 1.7 mmol/L Normal 0.4-1.9 [facility] Comment on above: Order Comment: Y Performed By: #### L 100.0100, L500.4050, L503.6005 #### [facility] Laboratory [address] [place], [address] Bilirubin [Mass/Vol] 0.60 mg/dL Normal 0.20-1.00 [facility] Comment on above: For patients on eltr ombopag therapy, use of Dimension [place] TBIL is not recommended. Result Comment: For patients on eltrombopag therapy, use of Dimension [place] TBIL is not recommended. Performed By: #### L 100.0100, L500.4050, L503.6005 #### [facility] Laboratory [address] [place], [address] Chloride [Moles/Vol] 107 mmol/L Normal 98-107 [facility] Comment on above: Performed By: #### L 100.0100, L500.4050, L503.6005 #### [facility] Laboratory [address] [place], [address] Glucose [Mass/Vol] 110 mg/dL High 74-106 [facility] Comment on above: Fasting Glucose resu lt from 100 to 125 mg/dL suggests IMPAIRED HOMEOSTASIS per A.D.A. criteria. Result Comment: Fast ing Glucose result from 100 to 125 mg/dL suggests IMPAIRED HOMEOSTASIS per A.D.A. criteria. Performed By: #### L 100.0100, L500.4050, L503.6005 #### [facility] Laboratory [address] [place], [address] Potassium [Moles/Vol] 4.0 mmol/L Normal 3.5-5.[address] [facility] Comment on above: Performed By: #### L 100.0100, L500.4050, L503.6005 #### [facility] Laboratory [address] [place], [address] Sodium [Moles/Vol] 137 mmol/L Normal 136-145 [facility] Comment on above: Performed By: #### L 100.0100, L500.4050, L503.6005 #### [facility] Laboratory [address] [place], [address] Basophils/100 WBC (Bld) 0.7 % Normal 0-1 [facility] Comment on above: Performed By: #### L 100.0100, L500.4050, L503.6005 #### [facility] Laboratory [address] [place], [address] Eosinophils/100 WBC (Bld) 2.1 % Normal 0-5 [facility] Comment on above: Performed By: #### L 100.0100, L500.4050, L503.6005 #### [facility] Laboratory [address] [place], [address] Hemoglobin (Bld) [Mass/Vol] 13.1 g/dL Normal 13.0-16.5 [facility] Comment on above: Performed By: #### L 100.0100, L500.4050, L503.6005 #### [facility] Laboratory [address] [place], [address] Monocytes/100 WBC (Bld) 6.8 % Normal 0-10 [facility] Comment on above: Performed By: #### L 100.0100, L500.4050, L503.6005 #### [facility] Laboratory [address] [place], [address] Neutrophils/100 WBC (Bld) 80.9 % High 47-70 [facility] Comment on above: Performed By: #### L 100.0100, L500.4050, L503.6005 #### [facility] Laboratory [address] [place], [address] WBC (Bld) [#/Vol] 9.1 10*3/uL Normal 4.4-11.0 [facility] Comment on above: Performed By: #### L 100.0100, L500.4050, L503.6005 #### [facility] Laboratory [address] [place], [address] Neutrophils (Bld) [#/Vol] 7.4 10*3/uL 2.0-7.7 [facility] Protein [Mass/Vol] 7.0 g/dL 6.4-8.2 [facility] CBC W/Diff, Automatedon 02-0 Absolute Lymph 0.80 X10 3/uL Low 0.83-4.51 [facility] Comment on above: Performed By: #### L 100.0100, L500.4050, L503.6005 #### [facility] Laboratory [address] [place], [address] Absolute Neut 7.4 X10 3/uL Normal 2.0-7.7 [facility] Comment on above: Performed By: #### L 100.0100, L500.4050, L503.6005 #### [facility] Laboratory [address] [place], [address] IG% 0.700 Normal 0.0-0.9 [facility] Comment on above: Result Comment: IG% - Immature Granulocytes (promyelocytes, myelocytes and metamyelocytes) > 1% indicates that a LEFT SHIFT is Present. Performed By: #### L 100.0100, L500.4050, L503.6005 #### [facility] Laboratory [address] [place], [address] Lymphocytes/100 WBC (Bld) 8.8 % Low 19-41 [facility] Comment on above: Performed By: #### L 100.0100, L500.4050, L503.6005 #### [facility] Laboratory [address] [place], [address] Nucleated RBC (Bld) [#/Vol] 0 10*3/uL Normal 0-5 [facility] Comment on above: Performed By: #### L 100.0100, L500.4050, L503.6005 #### [facility] Laboratory [address] [place], [address] RDW SD 48.4 fl High 35.1-43.9 [facility] Comment on above: Performed By: #### L 100.0100, L500.4050, L503.6005 #### [facility] Laboratory [address] [place], [address] CBC W/Diff, AutomatedOrdered By: Parker Metzger on 03-15-2023 MCH (RBC) [Entitic mass] 30.5 pg Normal 27.0-32.0 [facility] Comment on above: Performed By: #### L 100.0100, L500.4050, L503.6005 #### [facility] Laboratory [address] [place], [address] MCHC (RBC) [Mass/Vol] 30.5 g/dL Low 32-[address] [facility] Comment on above: Performed By: #### L 100.0100, L500.4050, L503.6005 #### [facility] Laboratory [address] [place], [address] Platelet mean volume (Bld) [Entitic vol] 9.9 fL Normal 6.2-12.0 [facility] Comment on above: Performed By: #### L 100.0100, L500.4050, L503.6005 #### [facility] Laboratory [address] [place], [address] Platelets (Bld) [#/Vol] 135 10*3/uL Low 150-450 [facility] Comment on above: Performed By: #### L 100.0100, L500.4050, L503.6005 #### [facility] Laboratory [address] [place], [address] Chest PA and Lateralon 03-15 Chest PA and Lateral [facility] Imaging Services [address] [address] Chest PA and Lateral MR#: [id number] Acct: [id number] Name: ARTURO PEDERSEN Rep #: [id number] : 1940 M 82 From: Domingo caballero MD PCP: Dr. Shayne Zaidi MD Status: REG ER Study: Chest PA and Lateral Date of Exam: 03/15/23 Exam# [id number] Ordering Dr: [place] [id number] STUDY: X-RAY CHEST REASON FOR EXAM: Male, [...] 14:57 EST Reading Location ID and State: [address] [place] [address] , Service support , CC: Dr. Shayne Zaidi MD; Dr. Parker Metzger MD Rn Hospital: Signed Normal [facility] Comprehensive Metabolic Prof ilon 03-15-2023 Albumin [Mass/Vol] 3.5 g/dL Normal 3.2-5.0 [facility] Comment on above: Performed By: #### L 100.0100, L500.4050, L503.6005 #### [facility] Laboratory [address] [place], [address] ALK P 116 U/L Normal 45-117 [facility] Comment on above: Performed By: #### L 100.0100, L500.4050, L503.6005 #### [facility] Laboratory [address] [place], [address] AST [Catalytic activity/Vol] 11 U/L Low 15-37 [facility] Comment on above: Performed By: #### L 100.0100, L500.4050, L503.6005 #### [facility] Laboratory [address] [place], [address] BUN/CRE 28.5 RATIO High 10-20 [facility] Comment on above: Performed By: #### L 100.0100, L500.4050, L503.6005 #### [facility] Laboratory [address] [place], [address] CA,Total 8.6 mg/dL Normal 8.5-10.1 [facility] Comment on above: Performed By: #### L 100.0100, L500.4050, L503.6005 #### [facility] Laboratory [address] [place], [address] ECRCL 83.26 ml/min Normal [facility] Comment on above: Performed By: #### L 100.0100, L500.4050, L503.6005 #### [facility] Laboratory [address] [place], [address] EST GFR - AA 131 mL/min Normal >60 [facility] Comment on above: Result Comment: Afri can Citizen Of [place] GFR Calc Performed By: #### L 100.0100, L500.4050, L503.6005 #### [facility] Laboratory [address] [place], [address] GAP 2 Low 5-15 [facility] Comment on above: Performed By: #### L 100.0100, L500.4050, L503.6005 #### [facility] [address] [place], [address] GFR/1.73 sq M.predicted among non-blacks MDRD (S/P/Bld) [Vol rate/Area] 108 mL/min/{1.73_m2} Normal >60 [facility] Comment on above: Result Comment: Non- GFR Calc Performed By: #### L 100.0100, L500.4050, L503.6005 #### [facility] Laboratory [address] [place], [address] T PROT 7.0 g/dL Normal 6.4-8.2 [facility] Comment on above: Performed By: #### L 100.0100, L500.4050, L503.6005 #### [facility] Laboratory [address] [place], [address] Comprehensive Metabolic Prof ilOrdered By: Parker Metzger on 03-15-2023 Albumin/Globulin [Mass ratio] 1.0 {ratio} Normal 0.9-2.4 [facility] Comment on above: Performed By: #### L 100.0100, L500.4050, L503.6005 #### [facility] Laboratory [address] [place], [address] ALT [Catalytic activity/Vol] 20 U/L Normal 16-61 [facility] Comment on above: Performed By: #### L 100.0100, L500.4050, L503.6005 #### [facility] Laboratory [address] [place], [address] CO2 [Moles/Vol] 28.0 mmol/L Normal 21.0-32.0 [facility] Comment on above: Performed By: #### L 100.0100, L500.4050, L503.6005 #### [facility] Laboratory [address] [place], [address] Globulin (S) [Mass/Vol] 3.5 g/dL Normal 2.2-4.2 [facility] Comment on above: Performed By: #### L 100.0100, L500.4050, L503.6005 #### [facility] Laboratory [address] [place], [address] Determination of erythrocyte mean corpuscular volume (MCV)Ordered By: Parker Metzger on 03-15-2023 MCV (RBC) [Entitic vol] 100.0 fL High 80-94 [facility] Comment on above: Performed By: #### L 100.0100, L500.4050, L503.6005 #### [facility] Laboratory [address] [place], [address] Emergency Department Summary on 03-15-2023 Emergency Department Summary [facility] Medical Records Department [address] [place] [address] Emergency Department Summary 03/15/23 MR#: [id number] Acct: [id number] Name: ARTURO PEDERSEN Rep #: [id number] : 1940 82 From: Parker Metzger MD [...] (COPD exacerbation) Recent Illness/Hospitalization : No PFSH [facility] Medical History 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 Normal [facility] Erythrocyte distribution wid th ratioOrdered By: Parker Metzger on 03-15-2023 Erythrocyte distribution width (RBC) [Ratio] 13.2 % Normal 11.6-14.6 [facility] Comment on above: Performed By: #### L 100.0100, L500.4050, L503.6005 #### [facility] Laboratory [address] [place], [place], [address] Erythrocyte distribution wid th standard deviationOrdered By: Parker Metzger on 03-15-2023 Erythrocyte distribution width (RBC) [Entitic vol] 48.4 fL 35.1-43.9 [facility] Immature granulocytes/100 WB C Auto (Bld)Ordered By: Parker Metzger on 03-15-2023 Immature granulocytes/100 WBC (Bld) 0.700 % 0.0-0.9 [facility] Comment on above: IG% - Immature Granu locytes (promyelocytes, myelocytes and metamyelocytes) > 1% indicates that a LEFT SHIFT is Present. Laboratory - Chemistry and C hemistry - challengeOrdered By: Parkeramira Metzger on 03-15-2023 ALP [Catalytic activity/Vol] 116 U/L 45-117 [facility] Urea nitrogen/Creatinine [Mass ratio] 28.5 mg/mg 10-20 [facility] Laboratory - Hematology and Cell countsOrdered By: Parker Metzger on 03-15-2023 Nucleated RBC/100 WBC (Bld) [Ratio] 0 % 0-5 [facility] Laboratory - Microbiology an d Antimicrobial susceptibilityOrdered By: Parkeramira Metzger on 03-15-2023 SARS-CoV-2 (COVID-19) RNA NIURKA+probe Ql (Unsp spec) [facility] M100.678on 03-15-2023 M100.678 SARS-CoV-2 (COVID 19 ) Negative INFLUENZA A Negative INFLUENZA B Negative RSV PCR Negative Normal [facility] Comment on above: Performed By: #### M 100.678 ####[facility] [address] [place], [place], [id number] No Panel InformationOrdered By: Parkeramira Metzger on 03-15-2023 Estimated Creatinine Clearance Calc 83.26 ml/min [facility] Estimated GFR (MDRD) Amer 131 mL/min >60 [facility] Comment on above: GFR Calc Estimated GFR (MDRD) Non-Af Amer 108 mL/min >60 [facility] Comment on above: Non- GFR Calc Serum or plasma calcium regan urement (mass/volume)Ordered By: Parkeramira Metzger on 03-15-2023 Calcium [Mass/Vol] 8.6 mg/dL 8.5-10.1 [facility] Serum or plasma creatinine m easurement (mass/volume)Ordered By: Parker Metzger on 03-15-2023 Creatinine [Mass/Vol] 0.74 mg/dL Normal 0.70-1.[address] [facility] Comment on above: The validity of the calculated GFR & GFRAA in patients over 70 years has not been determined. Clinical correlation is essential. Result Comment: The validity of the calculated GFR GFRAA in patients over 70 years has not been determined. Clinical correlation is essential. Performed By: #### L 100.0100, L500.4050, L503.6005 #### [facility] Laboratory [address] [place], [place], [address] Serum or plasma urea nitroge n measurement (mass/volume)Ordered By: Parker Metzger on 03-15-2023 Urea nitrogen [Mass/Vol] 21 mg/dL High 7-18 [facility] Comment on above: Performed By: #### L 100.0100, L500.4050, L503.6005 #### [facility] Laboratory [address] [place], [place], [address] Thin prep Papanicolaou smear with manual screeningOrdered By: Parker Metzger on 03-15-2023 Thin prep Papanicolaou smear with manual screening 3.5 g/dL 3.2-5.0 [facility] Thin prep Papanicolaou smear with manual screening 11 U/L 15-37 [facility] Thin prep Papanicolaou smear with manual screening 2 5-15 [facility] XR Chest PA and Lateralon IMPRESSION: New atelectasis and/or early infiltrate in the right middle lobe. 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 Follow-up to document resolution Rn Hospital: [facility] Transcribe Date/Time: May 24 2022 1:40P Dictated by : SATISH PATEL MD This examination was interpreted and the report reviewed and electronically signed by: SATISH PATEL MD on May 24 2022 1:46PM EST [facility] XR Chest PA and LateralOrder ed By: [facility] Provider on 05-24-2022 [facility] Comprehensive metabolic 2000 panelon 05-22-2022 Albumin [Mass/Vol] 4.2 g/dL 3.9 - 4.9 g/dL [facility] ALP [Catalytic activity/Vol] 120 U/L High 38 - 113 U/L [facility] ALT [Catalytic activity/Vol] 9 U/L Low 10 - 54 U/L [facility] Anion gap [Moles/Vol] 12 mmol/L 9 - 18 mmol/L [facility] AST [Catalytic activity/Vol] 17 U/L 14 - 40 U/L [facility] Bilirubin [Mass/Vol] 1.1 mg/dL 0.2 - 1 .3 mg/dL [facility] Calcium [Mass/Vol] 10.0 mg/dL 8.5 - 10. 2 mg/dL [facility] Chloride [Moles/Vol] 102 mmol/L 97 - 10 5 mmol/L [facility] CO2 [Moles/Vol] 28 mmol/L 22 - 30 mmol/L [facility] Creatinine [Mass/Vol] 0.83 mg/dL 0.73 - 1.22 mg/dL [facility] Estimated Glomerular Filtration Rate 87 mL/min/1.73m >=60 mL/min/1.73m [facility] Glucose [Mass/Vol] 119 mg/dL High 74 - 99 mg/dL [facility] Potassium [Moles/Vol] 4.8 mmol/L 3.7 - 5.1 mmol/L [facility] Protein [Mass/Vol] 7.3 g/dL 6.3 - 8.0 g/dL [facility] Sodium [Moles/Vol] 142 mmol/L 136 - 144 mmol/L [facility] Urea nitrogen [Mass/Vol] 26 mg/dL High 9 - 24 mg/d L [facility] Lipid 1996 panelon 3 Cholesterol [Mass/Vol] 115 mg/dL <200 mg/dL [facility] Cholesterol in HDL [Mass/Vol] 39 mg/dL Low >39 mg/dL [facility] Cholesterol in LDL [Mass/Vol] 60 mg/dL <100 mg/dL [facility] Cholesterol in LDL/Cholesterol in HDL [Mass ratio] 1.54 {ratio} <2.54 [facility] Cholesterol in VLDL [Mass/Vol] 16 mg/dL <30 mg/dL [facility] Cholesterol non HDL [Mass/Vol] 76 mg/dL <130 mg/dL [facility] Cholesterol.total/Choles terol in HDL [Mass ratio] 2.95 {ratio} <5.10 [facility] Fasting Time 0 hrs [facility] Triglyceride [Mass/Vol] 80 mg/dL <150 mg/dL [facility] TSH BLDon 05-22-2022 TSH Qn 1.440 m[IU]/L 0.270 - 4.200 mIU/L [facility] XR Chest PA and Lateralon Radiology Study observation (narrative) [facility] CBC panel Auto (Bld)on 05-21 Erythrocyte distribution width (RBC) [Ratio] 13.4 % 11.5 - 15.0 % [facility] Hematocrit (Bld) [Volume fraction] 50.5 % 39.0 - 51.0 % [facility] Hemoglobin (Bld) [Mass/Vol] 15.9 g/dL 13.0 - 17.0 g/dL [facility] MCH (RBC) [Entitic mass] 30.3 pg 26. 0 - 34.0 pg [facility] MCHC (RBC) [Mass/Vol] 31.5 g/dL 30.5 - 36.0 g/dL [facility] MCV (RBC) [Entitic vol] 96.4 fL 80.0 - 100.0 fL [facility] Nucleated RBC (Bld) [#/Vol] <0.01 k/uL [facility] Platelet mean volume (Bld) [Entitic vol] 10.2 fL 9.0 - 12.7 fL [facility] Platelets (Bld) [#/Vol] 166 10*3/uL 150 - 400 k/uL [facility] RBC (Bld) [#/Vol] 5.24 10*6/uL 4.20 - 6.0 0 m/uL [facility] WBC (Bld) [#/Vol] 9.40 10*3/uL 3.70 - 11. 00 k/uL [facility] Absolute lymphocyte counton 12-18-2021 Lymphocytes Auto (Unsp spec) [#/Vol] 0.33 10*3/uL 0.83-4.51 [facility] Work Phone: Basophil percentageon 2021 Basophils/100 WBC (Bld) 0.1 % 0-1 [facility] Work Phone: [phone] Bilirubin [Mass/Vol] 0.50 mg/dL 0.20-1.00 [facility] Work Phone: Comment on above: For patients on eltr ombopag therapy, use of Dimension [place] TBIL is not recommended. Chloride [Moles/Vol] 101 mmol/L 98-107 [facility] Work Phone: [phone] Eosinophils/100 WBC (Bld) 0.0 % 0-5 [facility] Work Phone: Glucose [Mass/Vol] 173 mg/dL 74-106 [facility] Work Phone: Comment on above: Fasting Glucose resu lt greater than or equal to 126 mg/dL suggests DIABETES MELLITUS per A.D.A. criteria. Neutrophils (Bld) [#/Vol] 13.8 10*3/uL 2.0-7.7 [facility] Work Phone: Neutrophils/100 WBC (Bld) 92.7 % 47-70 [facility] Work Phone: [phone] Potassium [Moles/Vol] 4.1 mmol/L 3.5-5.[address] [facility] Work Phone: Protein [Mass/Vol] 6.9 g/dL 6.4-8.2 [facility] Work Phone: [phone] Sodium [Moles/Vol] 138 mmol/L 136-145 [facility] Work Phone: WBC (Bld) [#/Vol] 14.9 10*3/uL 4.4-11.0 [facility] Work Phone: Blood erythrocytes count (nu mber/volume)on 12-18-2021 RBC (Bld) [#/Vol] 4.57 10*6/uL 4.6-6.2 [facility] Work Phone: Blood hemoglobin measurement (mass/volume)on 12-18-2021 Hemoglobin (Bld) [Mass/Vol] 14.3 g/dL 13.0-16.5 [facility] Work Phone: Blood lymphocytes/100 leukoc yteson 12-18-2021 Lymphocytes/100 WBC (Bld) 2.2 % 19-41 [facility] Work Phone: Blood monocytes/100 leukocyt eson 12-18-2021 Monocytes/100 WBC (Bld) 4.1 % 0-10 [facility] Work Phone: Blood platelet mean volumeon 12-18-2021 Platelet mean volume (Bld) [Entitic vol] 8.6 fL 6.2-12.0 [facility] Work Phone: Determination of erythrocyte mean corpuscular volume (MCV)on 12-18-2021 MCV (RBC) [Entitic vol] 94.1 fL 80-94 [facility] Work Phone: Hematocrit Auto (Bld) [Volum e fraction]on 12-18-2021 Hematocrit (Bld) [Volume fraction] 43.0 % 40-54 [facility] Work Phone: Laboratory - Chemistry and C hemistry - challengeon 12-18-2021 ALP [Catalytic activity/Vol] 155 U/L 45-117 [facility] Work Phone: ALT [Catalytic activity/Vol] 267 U/L 16-61 [facility] Work Phone: CO2 [Moles/Vol] 32.0 mmol/L 21.0-32.0 [facility] Work Phone: Globulin (S) [Mass/Vol] 4.3 g/dL 2.2-4.2 [facility] Work Phone: Urea nitrogen/Creatinine [Mass ratio] 60.2 mg/mg 10-20 [facility] Work Phone: Laboratory - Hematology and Cell countson 12-18-2021 Erythrocyte distribution width (RBC) [Entitic vol] 44.7 fL 35.1-43.9 [facility] Work Phone: Erythrocyte distribution width (RBC) [Ratio] 13.0 % 11.6-14.6 [facility] Work Phone: Immature granulocytes/100 WBC (Bld) 0.900 % 0.0-0.9 [facility] Work Phone: Comment on above: IG% - Immature Granu locytes (promyelocytes, myelocytes and metamyelocytes) > 1% indicates that a LEFT SHIFT is Present. MCH (RBC) [Entitic mass] 31.3 pg 27.0-32.0 [facility] Work Phone: Nucleated RBC/100 WBC (Bld) [Ratio] 0 % 0-5 [facility] Work Phone: MCHC Auto (RBC) [Mass/Vol]on 12-18-2021 MCHC (RBC) [Mass/Vol] 33.3 g/dL 32-[address] [facility] Work Phone: No Panel Informationon 12-18 Estimated Creatinine Clearance Calc 60.66 ml/min [facility] Work Phone: Estimated GFR (MDRD) Amer 166 mL/min >60 [facility] Work Phone: Comment on above: GFR Calc Estimated GFR (MDRD) Non-Af Amer 138 mL/min >60 [facility] Work Phone: Comment on above: Non- GFR Calc Platelets bldon 12-18-2021 Platelets (Bld) [#/Vol] 226 10*3/uL 150-450 [facility] Work Phone: Serum or plasma albumin regan urement (mass/volume)on 12-18-2021 Albumin [Mass/Vol] 2.6 g/dL 3.2-5.0 [facility] Work Phone: Serum or plasma albumin/glob ulin mass ratioon 12-18-2021 Albumin/Globulin [Mass ratio] 0.6 {ratio} 0.9-2.4 [facility] Work Phone: Serum or plasma calcium regan urement (mass/volume)on 12-18-2021 Calcium [Mass/Vol] 8.7 mg/dL 8.5-10.[address] [facility] Work Phone: Serum or plasma creatinine m easurement (mass/volume)on 12-18-2021 Creatinine [Mass/Vol] 0.60 mg/dL 0.70-1.[address] [facility] Work Phone: Comment on above: The validity of the calculated GFR & GFRAA in patients over 70 years has not been determined. Clinical correlation is essential. Serum or plasma urea nitroge n measurement (mass/volume)on 12-18-2021 Urea nitrogen [Mass/Vol] 36 mg/dL 7-18 [facility] Work Phone: Thin prep Papanicolaou smear with manual screeningon 12-18-2021 Thin prep Papanicolaou smear with manual screening 138 U/L 15-37 [facility] Work Phone: Thin prep Papanicolaou smear with manual screening 5 5-15 [facility] Work Phone: Blood manual differential co mment interpretation (narrative result)on 12-15-2021 Manual differential comment Afshin (Bld) [Interp] SCANNED [facility] Work Phone: Laboratory - Chemistry and C hemistry - challengeon 12-15-2021 Natriuretic peptide B (Bld) [Mass/Vol] 163.1 pg/mL 0-100 [facility] Work Phone: No Panel Informationon 12-15 Thyroid Stimulating Hormone (TSH) 0.52 uIU/mL 0.358-3.74 [facility] Work Phone: Absolute lymphocyte counton 12-14-2021 Lymphocytes Auto (Unsp spec) [#/Vol] 0.43 10*3/uL 0.83-4.51 [facility] Work Phone: Basophil percentageon 2021 Basophils/100 WBC (Bld) 0.2 % 0-1 [facility] Work Phone: Chloride [Moles/Vol] 101 mmol/L 98-107 [facility]: [phone] Eosinophils/100 WBC (Bld) 0.0 % 0-5 [facility] Work Phone: Glucose [Mass/Vol] 108 mg/dL 74-106 [facility] Work Phone: Comment on above: Fasting Glucose resu lt from 100 to 125 mg/dL suggests IMPAIRED HOMEOSTASIS per A.D.A. criteria. Neutrophils (Bld) [#/Vol] 14.8 10*3/uL 2.0-7.7 [facility] Work Phone: Neutrophils/100 WBC (Bld) 90.8 % 47-70 [facility] Work Phone: Potassium [Moles/Vol] 4.1 mmol/L 3.5-5.[address] [facility] Work Phone: Sodium [Moles/Vol] 135 mmol/L 136-145 [facility] Work Phone: WBC (Bld) [#/Vol] 16.3 10*3/uL 4.4-11.0 [facility] Work Phone: Blood erythrocytes count (nu mber/volume)on 12-14-2021 RBC (Bld) [#/Vol] 4.32 10*6/uL 4.6-6.2 [facility] Work Phone: Blood hemoglobin measurement (mass/volume)on 12-14-2021 Hemoglobin (Bld) [Mass/Vol] 13.3 g/dL 13.0-16.5 [facility] Work Phone: [phone] Blood lymphocytes/100 leukoc yteson 12-14-2021 Lymphocytes/100 WBC (Bld) 2.6 % 19-41 [facility] Work Phone: [phone] Blood monocytes/100 leukocyt eson 12-14-2021 Monocytes/100 WBC (Bld) 5.6 % 0-10 [facility] Work Phone: Blood platelet mean volumeon 12-14-2021 Platelet mean volume (Bld) [Entitic vol] 8.8 fL 6.2-12.0 [facility] Work Phone: Determination of erythrocyte mean corpuscular volume (MCV)on 12-14-2021 MCV (RBC) [Entitic vol] 95.1 fL 80-94 [facility] Work Phone: Hematocrit Auto (Bld) [Volum e fraction]on 12-14-2021 Hematocrit (Bld) [Volume fraction] 41.1 % 40-54 [facility] Work Phone: Laboratory - Chemistry and C hemistry - challengeon 12-14-2021 CO2 [Moles/Vol] 30.0 mmol/L 21.0-32.0 [facility] Work Phone: Urea nitrogen/Creatinine [Mass ratio] 37.1 mg/mg 10-20 [facility] Work Phone: Laboratory - Hematology and Cell countson 12-14-2021 Erythrocyte distribution width (RBC) [Entitic vol] 47.7 fL 35.1-43.9 [facility] Work Phone: Erythrocyte distribution width (RBC) [Ratio] 13.5 % 11.6-14.6 [facility] Work Phone: Immature granulocytes/100 WBC (Bld) 0.800 % 0.0-0.9 [facility] Work Phone: Comment on above: IG% - Immature Granu locytes (promyelocytes, myelocytes and metamyelocytes) > 1% indicates that a LEFT SHIFT is Present. MCH (RBC) [Entitic mass] 30.8 pg 27.0-32.0 [facility] Work Phone: Nucleated RBC/100 WBC (Bld) [Ratio] 0 % 0-5 [facility] Work Phone: MCHC Auto (RBC) [Mass/Vol]on 12-14-2021 MCHC (RBC) [Mass/Vol] 32.4 g/dL 32-36 [facility] Work Phone: No Panel Informationon 12-14 Troponin I High Sensitivity 343 pg/mL 3.0-78.0 [facility] Work Phone: Comment on above: Critical Result(s) C alled at: 22:53:05 12/14/2021 by: Lacie Herrera. Results read back by same. Please Note: New Test Units and Gender Specific Reference Ranges. For more information see Policy Stat Procedure [place] High Sensitivity Troponin (TNIH) and attachments. D-Dimer Quantitative (PE/DVT) 1.54 FEU/ug/m 0.27-0.49 [facility] Work Phone: Comment on above: D-Dimer ELEVATED (>0 .49): Additional studies and clinicalassessments are indicated to conclude diagnosis of:Deep Vein Thrombosis (DVT) or Pulmonary Embolism (PE)CRITICAL VALUE VERIFIED. CALLED TO ROSCOE BRIZUELA12/14/21 190 Samson Walters.RESULTS READ BACK BY SAME . Estimated Creatinine Clearance Calc 62.53 ml/min [facility] Work Phone: Estimated GFR (MDRD) Amer 95 mL/min >60 [facility] Work Phone: Comment on above: GFR Calc Estimated GFR (MDRD) Non-Af Amer 79 mL/min >60 [facility] Work Phone: Comment on above: Non- GFR Calc Troponin I High Sensitivity 522 pg/mL 3.0-78.0 [facility] Work Phone: Comment on above: Critical Result(s) C alled at: 16:42:10 12/14/2021 by: Lacie GORMANccluclaudia. Results read back by same. Please Note: New Test Units and Gender Specific Reference Ranges. For more information see Policy Stat Procedure [place] High Sensitivity Troponin (TNIH) and attachments. Platelets bldon 12-14-2021 Platelets (Bld) [#/Vol] 199 10*3/uL 150-450 [facility] Work Phone: Serum or plasma calcium regan urement (mass/volume)on 12-14-2021 Calcium [Mass/Vol] 9.2 mg/dL 8.5-10.1 [facility] Work Phone: Serum or plasma creatinine m easurement (mass/volume)on 12-14-2021 Creatinine [Mass/Vol] 0.97 mg/dL 0.70-1.[address] [facility] Work Phone: Comment on above: The validity of the calculated GFR & GFRAA in patients over 70 years has not been determined. Clinical correlation is essential. Serum or plasma urea nitroge n measurement (mass/volume)on 12-14-2021 Urea nitrogen [Mass/Vol] 36 mg/dL 7-18 [facility] Work Phone: Thin prep Papanicolaou smear with manual screeningon 12-14-2021 Thin prep Papanicolaou smear with manual screening 4 - [facility] Work Phone: NM CARDIAC PERF STRESS/PHARM on [...] 60 minutes later. See administered doses below. [facility] Date of service: 06/19/2018 9:36:42 AM Ordering [...] normal sinus rhythm. Stress complications: none. Final Rn Hospital: [facility] Date/Time: Jun 19 2018 9:36A Dictated by : ROSALINO MURRAY DO This examination was interpreted and the report reviewed and electronically signed by: ROSALINO MURRAY DO on Jun 19 2018 4:55PM EST [id number] Normal [facility] NUCLEAR STRESS LEXISCAN (CAR D)on 06-19-2018 NUCLEAR STRESS LEXISCAN (CARD) NAME : ARTURO PEDERSEN PID : [id number] : 1940 Gender : Male Race : ORD : [id number] Procedure Date : Jun 19 2018 10:44:58 [...] Protocol Test Reason : Pre-Op Evaluation Location :[facility] Overread By : ROSALINO MURRAY D.O. Edited By : Shraddha Cha Referred By : SHAYNE CEDEÑO Acquired by : Shraddha Cha [facility] 06-16-2018 [facility] Telephone (CDLBME) ARTURO PEDERSEN ([id number]) 1940 M Date Time Provider Department 06/16/18 [...] Fully Assessed Reason for Visit: Reminder Call [1901] Prescriptions as of 06/16/2018 Sig: POTASSIUM CHLORIDE [...] Encounter Status:Closed by NATALIA LIZ on 06/16/18 [facility] COVID-19 virus antigen assay SARS-CoV-2 (COVID-19) Ag IA.rapid Ql (Resp) [facility] Work Phone: Legionella pneumophila ag Legionella Antigen Legionella Antigen [facility] Work Phone: No Panel Information Streptococcus pneumoniae Antigen (M [facility] Work Phone: Vital Signs Date Time Vital Sign Value Performing Clinician Facility 07-13-2024 16:53-0400 Diastolic blood pressure 76 mm[Hg] Paddy Zaidi MD Work Phone: [facility] 07-13-2024 16:53-0400 Heart rate 98 /min Paddy Zaidi MD Work Phone: [facility] 07-13-2024 16:53-0400 Systolic blood pressure 125 mm[Hg] Paddy Zaidi MD Work Phone: [facility] 03-27-2024 13:52-0500 Diastolic blood pressure 80 mm[Hg] Flavia Smith SENIOR HRIS ANALYST.OPERATIONS PLANT ATTENDANT Work Phone: [facility] 03-27-2024 13:52-0500 Heart rate 90 /min Flavia Click SENIOR HRIS ANALYST.OPERATIONS PLANT ATTENDANT Work Phone: [facility] 03-27-2024 13:52-0500 Respiratory rate 18 /min Flavia Click SENIOR HRIS ANALYST.OPERATIONS PLANT ATTENDANT Work Phone: [facility] 03-27-2024 13:52-0500 SaO2% (BldA) [Mass fraction] 95 % Flavia Click SENIOR HRIS ANALYST.OPERATIONS PLANT ATTENDANT Work Phone: [facility] 03-27-2024 13:52-0500 Systolic blood pressure 122 mm[Hg] Flavia Click SENIOR HRIS ANALYST.OPERATIONS PLANT ATTENDANT Work Phone: [facility] 03-27-2024 13:47-0500 Heart rate 107 /min Pulm Wstr Work Phone: [facility] 03-27-2024 13:47-0500 SaO2% (BldA) [Mass fraction] 96 % Pulm Wstr Work Phone: [facility] Comment on above: RA resting 03-05-2024 15:07-0500 Body height 171.5 cm Raina Huynh MD Work Phone: [facility] 03-05-2024 15:07-0500 Body mass index (BMI) [Ratio] 32.69 kg/m2 Raina Huynh MD Work Phone: [facility] 03-05-2024 15:07-0500 Body weight 96.16 kg Raina Huynh MD Work Phone: [facility] 03-05-2024 15:07-0500 Diastolic blood pressure 68 mm[Hg] Raina Huynh MD Work Phone: [facility] 03-05-2024 15:07-0500 Heart rate 112 /min Raina Huynh MD Work Phone: [facility] 03-05-2024 15:07-0500 Respiratory rate 14 /min Raina Huynh MD Work Phone: [facility] 03-05-2024 15:07-0500 SaO2% (BldA) [Mass fraction] 96 % Raina Huynh MD Work Phone: [facility] 03-05-2024 15:07-0500 Systolic blood pressure 122 mm[Hg] Raina Huynh MD Work Phone: [facility] 03-05-2024 14:42-0500 Body height 171.5 cm Pulm Wstr Work Phone: [facility] 03-05-2024 14:42-0500 Body mass index (BMI) [Ratio] 32.69 kg/m2 Pulm Wstr Work Phone: [facility] 03-05-2024 14:42-0500 Body weight 96.16 kg Pulm Wstr Work Phone: [facility] 03-05-2024 14:42-0500 Heart rate 112 /min Pulm Wstr Work Phone: [facility] 03-05-2024 14:42-0500 Respiratory rate 14 /min Pulm Wstr Work Phone: [facility] 03-05-2024 14:42-0500 SaO2% (BldA) [Mass fraction] 96 % Pulm Wstr Work Phone: [facility] Comment on above: 2L pulse dose 02-14-2024 14:06-0500 Diastolic blood pressure 78 mm[Hg] Hever Tanya SENIOR HRIS ANALYST.OPERATIONS PLANT ATTENDANT Work Phone: [facility] 02-14-2024 14:06-0500 Heart rate 96 /min Hever Tanya SENIOR HRIS ANALYST.OPERATIONS PLANT ATTENDANT Work Phone: [facility] 02-14-2024 14:06-0500 Systolic blood pressure 132 mm[Hg] Hever Tanya SENIOR HRIS ANALYST.OPERATIONS PLANT ATTENDANT Work Phone: [facility] 06-07-2023 16:30-0400 Body height 180.3 cm Paddy Zaidi MD Work Phone: [facility] 06-07-2023 16:30-0400 Body mass index (BMI) [Ratio] 30.15 kg/m2 Paddy Zaidi MD Work Phone: [facility] 06-07-2023 16:30-0400 Body weight 98 kg Paddy Zaidi MD Work Phone: [facility] 06-07-2023 16:30-0400 Diastolic blood pressure 80 mm[Hg] Paddy Zaidi MD Work Phone: [facility] 06-07-2023 16:30-0400 Heart rate 82 /min Paddy Zaidi MD Work Phone: [facility] 06-07-2023 16:30-0400 SaO2% (BldA) [Mass fraction] 95 % Paddy Zaidi MD Work Phone: [facility] 06-07-2023 16:30-0400 Systolic blood pressure 138 mm[Hg] Paddy Zaidi MD Work Phone: [facility] 03-15-2023 15:52-0500 Diastolic blood pressure 100 mm[Hg] [facility] 03-15-2023 15:52-0500 Heart rate 106 /min [facility] 03-15-2023 15:52-0500 Respiratory rate 22 /min [facility] 03-15-2023 15:52-0500 SaO2% (BldA) [Mass fraction] 95 % [facility] 03-15-2023 15:52-0500 Systolic blood pressure 159 mm[Hg] [facility] 03-15-2023 14:10-0500 Body mass index (BMI) [Ratio] 29.9 kg/m2 [facility] 03-15-2023 14:10-0500 Body weight 97.4 kg [facility] 03-15-2023 13:17-0500 Body height 180.34 cm [facility] 03-15-2023 13:17-0500 Body temperature 98.5 [degF] [facility] 09-22-2022 22:00-0400 Body mass index (BMI) [Ratio] 27.9 kg/m2 [facility] 09-22-2022 22:00-0400 Body weight 91 kg [facility] 09-22-2022 21:47-0400 Heart rate 69 /min [facility] 09-22-2022 21:47-0400 Respiratory rate 16 /min [facility] 09-22-2022 21:47-0400 SaO2% (BldA) [Mass fraction] 97 % [facility] 09-22-2022 18:34-0400 Body height 180.34 cm [facility] 09-22-2022 18:34-0400 Body temperature 97.3 [degF] [facility] 09-22-2022 18:34-0400 Diastolic blood pressure 65 mm[Hg] [facility] 09-22-2022 18:34-0400 Systolic blood pressure 149 mm[Hg] [facility] 06-02-2022 12:58-0400 Body height 180.3 cm Hever Pamela SENIOR HRIS ANALYST.OPERATIONS PLANT ATTENDANT Work Phone: [facility] 06-02-2022 12:58-0400 Body weight 92.99 kg Hever Pamela SENIOR HRIS ANALYST.OPERATIONS PLANT ATTENDANT Work Phone: [facility] 06-02-2022 12:58-0400 Diastolic blood pressure 68 mm[Hg] Hever Pamela SENIOR HRIS ANALYST.OPERATIONS PLANT ATTENDANT Work Phone: [facility] 06-02-2022 12:58-0400 Heart rate 84 /min Hever Pamela SENIOR HRIS ANALYST.OPERATIONS PLANT ATTENDANT Work Phone: [facility] 06-02-2022 12:58-0400 SaO2% (BldA) [Mass fraction] 97 % Hever Pamela SENIOR HRIS ANALYST.OPERATIONS PLANT ATTENDANT Work Phone: [facility] 06-02-2022 12:58-0400 Systolic blood pressure 134 mm[Hg] Hever Pamela SENIOR HRIS ANALYST.OPERATIONS PLANT ATTENDANT Work Phone: [facility] 05-21-2022 16:12-0400 Body height 180.3 cm Paddy Zaidi MD Work Phone: [facility] 05-21-2022 16:12-0400 Body temperature 98.4 [degF] Paddy Zaidi MD Work Phone: [facility] 05-21-2022 16:12-0400 Body weight 88.22 kg Paddy Zaidi MD Work Phone: [facility] 05-21-2022 16:12-0400 Diastolic blood pressure 83 mm[Hg] Paddy Zaidi MD Work Phone: [facility] 05-21-2022 16:12-0400 Heart rate 71 /min Paddy Zaidi MD Work Phone: [facility] 05-21-2022 16:12-0400 Respiratory rate 16 /min Paddy Zaidi MD Work Phone: [facility] 05-21-2022 16:12-0400 SaO2% (BldA) [Mass fraction] 93 % Paddy Zaidi MD Work Phone: [facility] 05-21-2022 16:12-0400 Systolic blood pressure 137 mm[Hg] Paddy Zaidi MD Work Phone: [facility] 12-28-2021 09:17-0500 Body mass index (BMI) [Ratio] 27.8 kg/m2 Dr. Shayne Zaidi Work Phone: [facility] Work Phone: 12-28-2021 09:17-0500 Body temperature 97 [degF] Dr. Shayne Zaidi Work Phone: [facility] Work Phone: 12-28-2021 09:17-0500 Body weight 90.[address] Shayne Zaidi Work Phone: [facility] Work Phone: 12-28-2021 09:17-0500 Diastolic blood pressure 76 mm[Hg] Dr. Shayne Zaidi Work Phone: [facility] Work Phone: 12-28-2021 09:17-0500 Heart rate 72 /min Dr. Shayne Zaidi Work Phone: [facility] Work Phone: 12-28-2021 09:17-0500 Respiratory rate 18 /min Dr. Shayne Zaidi Work Phone: [facility] Work Phone: 12-28-2021 09:17-0500 SaO2% (BldA) [Mass fraction] 94 % Dr. Shayne Zaidi Work Phone: [facility] Work Phone: 12-28-2021 09:17-0500 Systolic blood pressure 140 mm[Hg] Dr. Shayne Zaidi Work Phone: [facility] Work Phone: 12-23-2021 11:19-0500 Body height 180.3 cm Paddy Zaidi MD Work Phone: [facility] 12-23-2021 11:19-0500 Body temperature 98.4 [degF] Paddy Zaidi MD Work Phone: [facility] 12-23-2021 11:19-0500 Body weight 87.09 kg Paddy Zaidi MD Work Phone: [facility] 12-23-2021 11:19-0500 Diastolic blood pressure 54 mm[Hg] Paddy Zaidi MD Work Phone: [facility] 12-23-2021 11:19-0500 Heart rate 87 /min Paddy Zaidi MD Work Phone: [facility] 12-23-2021 11:19-0500 SaO2% (BldA) [Mass fraction] 87 % Paddy Zaidi MD Work Phone: [facility] 12-23-2021 11:19-0500 Systolic blood pressure 91 mm[Hg] Paddy Zaidi MD Work Phone: [facility] 12-18-2021 15:00-0500 Heart rate 95 /min Dr. Shayne Zaidi Work Phone: [facility] Work Phone: 12-18-2021 14:55-0500 Body temperature 97.5 [degF] Dr. Shayne Zaidi Work Phone: [facility] Work Phone: 12-18-2021 14:55-0500 Diastolic blood pressure 88 mm[Hg] Dr. Shayne Zaidi Work Phone: [facility] Work Phone: 12-18-2021 14:55-0500 Inhaled oxygen flow rate 2 L/min Dr. Shayne Zaidi Work Phone: [facility] Work Phone: 12-18-2021 14:55-0500 Respiratory rate 16 /min Dr. Shayne Zaidi Work Phone: [facility] Work Phone: 12-18-2021 14:55-0500 SaO2% (BldA) [Mass fraction] 96 % Dr. Shayne Zaidi Work Phone: [facility] Work Phone: 12-18-2021 14:55-0500 Systolic blood pressure 128 mm[Hg] Dr. Shayne Zaidi Work Phone: [facility] Work Phone: 12-16-2021 15:05-0500 Body height 180.[address] Shayne Zadii Work Phone: [facility] Work Phone: 12-16-2021 15:05-0500 Body weight 88.[address] Shayne Zaidi Work Phone: [facility] Work Phone: 12-14-2021 18:22-0500 Body mass index (BMI) [Ratio] 27.1 kg/m2 Dr. Shayne Zaidi Work Phone: [facility] Work Phone: 12-14-2021 17:51-0500 Diastolic blood pressure 84 mm[Hg] Dr. Shayne Zaidi Work Phone: [facility] Work Phone: 12-14-2021 17:51-0500 Heart rate 101 /min Dr. Shayne Zaidi Work Phone: [facility] Work Phone: 12-14-2021 17:51-0500 Inhaled oxygen flow rate 2 L/min Dr. Shayne Zaidi Work Phone: [facility] Work Phone: 12-14-2021 17:51-0500 Respiratory rate 28 /min Dr. Shayne Zaidi Work Phone: [facility] Work Phone: 12-14-2021 17:51-0500 SaO2% (BldA) [Mass fraction] 93 % Dr. Shayne Zaidi Work Phone: [facility] Work Phone: 12-14-2021 17:51-0500 Systolic blood pressure 142 mm[Hg] Dr. Shayne Zaidi Work Phone: [facility] Work Phone: 12-14-2021 17:05-0500 Body temperature 98.1 [degF] Dr. Shayne Zaidi Work Phone: [facility] Work Phone: 12-14-2021 15:17-0500 Body height 180.[address] Shayne Zaidi Work Phone: [facility] Work Phone: 12-14-2021 15:17-0500 Body mass index (BMI) [Ratio] 28.3 kg/m2 Dr. Shayne Zaidi Work Phone: [facility] Work Phone: 12-14-2021 15:17-0500 Body weight 92.[address] Shayne Zaidi Work Phone: [facility] Work Phone: 06-22-2021 13:25-0400 Diastolic blood pressure 80 mm[Hg] Hever Santiago APRN.CNP Work Phone: [facility] 06-22-2021 13:25-0400 Systolic blood pressure 138 mm[Hg] Hever Pamela SENIOR HRIS ANALYST.OPERATIONS PLANT ATTENDANT Work Phone: [facility] 06-22-2021 12:58-0400 Body height 180.3 cm Hever Pamela SENIOR HRIS ANALYST.OPERATIONS PLANT ATTENDANT Work Phone: [facility] 06-22-2021 12:58-0400 Body weight 88.36 kg Hever Pamela SENIOR HRIS ANALYST.OPERATIONS PLANT ATTENDANT Work Phone: [facility] 06-22-2021 12:58-0400 Heart rate 65 /min Hever Pamela SENIOR HRIS ANALYST.OPERATIONS PLANT ATTENDANT Work Phone: [facility] Encounters Encounter Date Encounter Type Care Provider Facility Start: 09-08-2024 End: 09-08-2024 ambulatory Yudelka Harris RN NURSE COAL DUMPING EQUIPMENT OPERATOR Comment on above: Patient Update Start: 09-05-2024 End: 09-05-2024 Telephone encounter Sudha Noe MD Work Phone: Cardiology Comment on above: Appointment Start: 08-14-2024 End: 08-14-2024 Refill Paddy Zaidi MD Work Phone: [facility] Comment on above: Refill Request Start: 07-23-2024 End: 07-23-2024 Refill Hever Martínez APRN.OPERATIONS PLANT ATTENDANT Work Phone: [facility] Comment on above: Refill Request Start: 07-13-2024 End: 07-13-2024 ambulatory PADDY ZAIDI Facility:[facility] Start: 07-13-2024 End: 07-13-2024 Office outpatient visit 25 minutes Paddy Zaidi MD Work Phone: [facility] Comment on above: Oxygen dependent (Pr imary Dx); Atherosclerotic cardiovascular disease; Anxiety attack; Leg swelling; Adjustment disorder with mixed anxiety and depressed mood; PAD (peripheral artery disease); Acquired hypothyroidism; Pure hypercholesterolemia; Idiopathic peripheral neuropathy; 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 Start: 07-13-2024 End: 07-13-2024 Telephone encounter Flavia Smith APRN.OPERATIONS PLANT ATTENDANT Work Phone: Pulmonary Medicine Start: 07-12-2024 End: 07-16-2024 Refill Paddy Zaidi MD Work Phone: [facility] Comment on above: Refill Request Start: 07-03-2024 End: 09-02-2024 Follow-up encounter Hever Martínez APRN.OPERATIONS PLANT ATTENDANT Work Phone: [facility] Start: 06-29-2024 End: 06-29-2024 ambulatory PADDY ZAIDI Facility:[facility] Start: 06-29-2024 End: 08-29-2024 Follow-up encounter Georgiana Valdivia APRN.OPERATIONS PLANT ATTENDANT Work Phone: [facility] Comment on above: Results Start: 06-29-2024 End: 06-29-2024 ambulatory PADDY ZAIDI Facility:[facility] Start: 06-18-2024 End: 06-18-2024 ambulatory Brayan Stallworth RN Work Phone: [employer] Comment on above: Population Health Na vigation Outreach ([employer] ) Start: 06-16-2024 End: 06-19-2024 Refill Hever Martínez APRN.OPERATIONS PLANT ATTENDANT Work Phone: [facility] Comment on above: Refill Request Start: 04-26-2024 End: 04-26-2024 ambulatory Talia Ferreira [facility] [place] Start: 04-26-2024 End: 04-26-2024 Patient encounter procedure [facility] [place] Comment on above: Population Health Na vigation Outreach ([employer] High Risk - Attempt 2) Start: 04-08-2024 End: 04-09-2024 Refill Hever Martínez APRN.OPERATIONS PLANT ATTENDANT Work Phone: [facility] Comment on above: Refill Request Start: 03-27-2024 End: 03-27-2024 ambulatory RAINA HUYNH Facility:[facility] Start: 03-27-2024 End: 03-27-2024 Office outpatient visit 25 minutes Flavia Smith APRN.OPERATIONS PLANT ATTENDANT Work Phone: Pulmonary Medicine Comment on above: 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) (Primary Dx); Hypoxia; Pneumonia of left lower lobe due to infectious organism; Lung nodules Start: 03-27-2024 End: 03-27-2024 ambulatory Pulm Lab [facility] Work Phone: [facility] Comment on above: Spirometry Start: 03-27-2024 End: 03-27-2024 Patient encounter procedure [facility] Work Phone: [facility] Start: 03-27-2024 End: 03-27-2024 Subsequent hospital visit by physician [facility] ([facility]) Work Phone: Cat Scan Comment on above: Pneumonia of left lo wer lobe due to infectious organism [J18.9] Start: 03-21-2024 End: 03-21-2024 Refill Paddy Zaidi MD Work Phone: [facility] Comment on above: Refill Request Appointment Start: 03-20-2024 End: 03-20-2024 ambulatory [facility] [place] Start: 03-20-2024 End: 03-20-2024 Patient encounter procedure Elenita Dey MA [facility] Comment on above: Population Health Na vigation Outreach ([employer] High Risk Attempt #1 ) Start: 03-19-2024 ambulatory RAINA HUYNH Fac ility:[facility] Start: 03-11-2024 End: 03-13-2024 Refill Paddy Zaidi MD Work Phone: [facility] Comment on above: Refill Request Start: 03-06-2024 End: 03-21-2024 Telephone encounter Raina Huynh MD Work Phone: Pulmonary Medicine Comment on above: Anticoagulation Start: 03-05-2024 End: 03-05-2024 ambulatory [facility] Comment on above: Spirometry Start: 03-05-2024 End: 03-05-2024 Patient encounter procedure [facility] Work Phone: [facility] Comment on above: 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) (Primary Dx); Pneumonia of left lower lobe due to infectious organism; Lung nodules; Former smoker; Chronic hypoxemic respiratory failure (HCC) Start: 03-02-2024 End: 03-02-2024 ambulatory PADDY ZAIDI Facility:[facility] Start: 02-15-2024 End: 02-16-2024 Telephone encounter Paddy Zaidi MD Work Phone: [facility] Comment on above: Medication Problem Start: 02-14-2024 End: 02-14-2024 ambulatory PADDY ZAIDI Facility:[facility] Start: 02-14-2024 End: 02-14-2024 Office outpatient visit 25 minutes Hever Martínez APRN.OPERATIONS PLANT ATTENDANT Work Phone: [facility] Comment on above: Pneumonia of right l ower lobe due to infectious organism (Primary Dx); Chronic obstructive pulmonary disease, unspecified COPD type (HCC); Adjustment disorder with mixed anxiety and depressed mood; Paroxysmal atrial fibrillation ([facility]); Encounter for immunization Start: 02-14-2024 End: 02-14-2024 Telephone encounter Hever Martínez APRN.OPERATIONS PLANT ATTENDANT Work Phone: [facility] Comment on above: Appointment Refill Request Start: 02-13-2024 End: 02-13-2024 Telephone encounter Paddy Zaidi MD Work Phone: [facility] Comment on above: Received Outside Med ical Records ([facility]) Start: 02-07-2024 End: 02-07-2024 Emergency department patient visit Shayne Zaidi Facility:[facility] Start: 12-30-2023 End: 01-02-2024 Refill Paddy Zaidi MD Work Phone: [facility] Comment on above: Refill Request Start: 12-21-2023 End: 12-21-2023 Telephone encounter Paddy Zaidi MD Work Phone: [facility] Comment on above: Orders ([employer] annual oxygen rx) Start: 12-01-2023 End: 12-01-2023 Refill Paddy Zaidi MD Work Phone: [facility] Comment on above: Refill Request Start: 11-28-2023 End: 11-29-2023 Refill Paddy Zaidi MD Work Phone: [facility] Comment on above: Refill Request Start: 09-02-2023 ambulatory Sarah Robison RN Work Phone: [employer] Start: 08-25-2023 ambulatory Corrina GAN [employer] [facility] Start: 08-25-2023 Home visit Corrina Collazo [employer] Comment on above: Population Health Na vigation Outreach ([employer] Attributed Member- Needs 2023 Medicare Wellness Appt Scheduled/) Start: 08-03-2023 ambulatory Elenita Dey [facility] [place] Start: 08-03-2023 Patient encounter procedure Elenita Dey MA [facility] [place] Comment on above: Population Health Na vigation Outreach ([employer] AWV/HCC and care gaps /) Start: 07-11-2023 Refill Paddy quintana MD Work Phone: [facility] Comment on above: Refill Request Medication Request Start: 06-13-2023 Telephone encounter Paddy Zaidi MD Work Phone: [facility] Comment on above: Results (Labs ) Start: 06-07-2023 End: 06-07-2023 Patient encounter procedure Paddy Zaidi MD Work Phone: [facility] Comment on above: 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) (Primary Dx); Hypothyroidism, unspecified type; Essential hypertension; Mixed hyperlipidemia; Peripheral polyneuropathy; SOB (shortness of breath); Hypoxemia Start: 05-27-2023 Refill Paddy quintana MD Work Phone: [facility] Comment on above: Refill Request Start: 04-15-2023 ambulatory Corrina Barakat MA [facility] [place] Comment on above: Population Health Na vigation Outreach ([employer] HCCs 2.16.24) Start: 04-08-2023 Refill Paddy quintaan MD Work Phone: [facility] Comment on above: Refill Request Start: 03-18-2023 Telephone encounter Paddy Zaidi MD Work Phone: [facility] Comment on above: Received Outside Med ical Records ([facility] 03/15/23) Start: 03-15-2023 End: 03-15-2023 [facility] Start: 12-28-2022 Telephone encounter Paddy Zaidi MD Work Phone: [facility] Comment on above: Orders ([employer] annual oxygen prescription renewal ) Start: 09-23-2022 Telephone encounter Paddy Ziadi MD Work Phone: [facility] Comment on above: Received Outside Med ical Records ([facility] 09/22/22) Start: 09-22-2022 End: 09-22-2022 Emergency department patient visit [facility] Work Phone: Start: 08-20-2022 Telephone encounter Paddy Zaidi MD Work Phone: [facility] Comment on above: Patient Question Start: 06-22-2022 Telephone encounter Hever page SENIOR HRIS ANALYST.OPERATIONS PLANT ATTENDANT Work Phone: [facility] Comment on above: Orders Start: 06-02-2022 End: 06-02-2022 Office outpatient visit 15 minutes Hever Santiago SENIOR HRIS ANALYST.OPERATIONS PLANT ATTENDANT Work Phone: [facility] Comment on above: Pneumonia of right m iddle lobe due to infectious organism (Primary Dx); ED (erectile dysfunction) of organic origin; Adjustment disorder with mixed anxiety and depressed mood Start: 05-25-2022 ambulatory Hever Santiago A PRN.OPERATIONS PLANT ATTENDANT Work Phone: [facility] Comment on above: Results Start: 05-22-2022 End: 05-22-2022 Subsequent hospital visit by physician [facility] Work Phone: Radiology Comment on above: Coronary artery dise ase involving eyak coronary artery of eyak heart with angina pectoris (HCC) [I25.119] Start: 05-21-2022 End: 05-21-2022 Patient encounter procedure Paddy Zaidi MD Work Phone: Family Practice Comment on above: Coronary artery dise ase involving eyak coronary artery of eyak heart with angina pectoris (HCC) (Primary Dx); Essential hypertension; Hypokalemia; Peripheral polyneuropathy; Acquired hypothyroidism; Anxiety; Paroxysmal atrial fibrillation (HCC); SOB (shortness of breath); Mixed hyperlipidemia; Hypothyroidism, unspecified type; Chronic obstructive pulmonary disease, unspecified COPD type (HCC) Start: 05-14-2022 Telephone encounter Paddy Zaidi MD Work Phone: Family Practice Comment on above: Medication Problem Start: 04-27-2022 ambulatory Talia Hood [facility] Comment on above: Population Health Na vigation Outreach ([facility]) Start: 03-30-2022 ambulatory Paddy quintana MD Work Phone: Internal Medicine [place] Start: 02-19-2022 Telephone encounter Paddy Zaidi MD Work Phone: [facility] Comment on above: Medication Problem Start: 01-18-2022 End: 01-18-[address] Shayne Zaidi Work Phone: [facility] Work Phone: Start: 01-18-2022 End: 01-18-[address] Shayne Zaidi Work Phone: [facility]-Sleep Lab Start: 12-28-2021 Telephone encounter Paddy Zaidi MD Work Phone: [facility] Comment on above: Received Outside Med ical Records (Pulmonary Medicine [facility]) Start: 12-28-2021 End: 12-28-[address] Shayne Zaidi Work Phone: [facility]-Pulmonary Medicine [facility] Start: 12-25-2021 Telephone encounter Paddy Zaidi MD Work Phone: [facility] Comment on above: Received Outside Med ical Records ([facility] 12 lead EKG 12/16/2021 and 12/17/2021) Start: 12-23-2021 Non-patient / Non-visit Dr. 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); Pneumonia of left upper lobe due to infectious organism; Essential hypertension; Obstructive sleep apnea on CPAP; Hospital discharge follow-up Start: 12-22-2021 Telephone encounter Paddy Zaidi MD Work Phone: [facility] Comment on above: Erroneous encounter- disregard Start: 12-21-2021 Telephone encounter Paddy Zaidi MD Work Phone: [facility] Comment on above: Received Outside Med ical Records ([facility] chest xray 12/18/2021) Received Outside Med ical Records ([facility] discharge instructions. 12/18/2021) Start: 12-18-2021 Non-patient / Non-visit Dr. Oscar Zaidi Work Phone: [facility] Start: 12-17-2021 Non-patient / Non-visit Dr. Oscar Zaidi Work Phone: [facility] Start: 12-17-2021 Telephone encounter Paddy Zaidi MD Work Phone: [facility] Comment on above: Received Outside Med ical Records (L[facility]) Start: 12-17-2021 End: 12-18-2021 Non-patient / Non-visit Dr. Shayne Zaidi Work Phone: [facility] Start: 12-16-2021 Non-patient / Non-visit Dr. Oscar Zaidi Work Phone: [facility] Inpatient Physicians Start: 12-16-2021 Telephone encounter Paddy Zaidi MD Work Phone: [facility] Comment on above: Received Outside Med ical Records ([facility] Cardiac Cath) Start: 12-16-2021 Non-patient / Non-visit Dr. Oscar Zaidi Work Phone: [facility] Start: 12-15-2021 Telephone encounter Paddy Zaidi MD Work Phone: [facility] Comment on above: Received Outside Med ical Records ([facility] ED) Start: 12-15-2021 Non-patient / Non-visit Dr. Oscar Zaidi Work Phone: [facility] Start: 12-15-2021 Non-patient / Non-visit Dr. Oscar Zaidi Work Phone: [facility] Start: 12-14-2021 Non-patient / Non-visit Dr. Oscar Zaidi Work Phone: [facility] Start: 12-14-2021 Non-patient / Non-visit Dr. Oscar Zaidi Work Phone: [facility] Start: 12-14-2021 End: 12-18-2021 Evaluation and management of inpatient Dr. Shayne Ziadi Work Phone: [facility] Start: 11-13-2021 Refill Hever MEANSNOlyOPERATIONS PLANT ATTENDANT Work Phone: [facility] Comment on above: Refill Request Start: 09-14-2021 Telephone encounter Hever page SENIOR HRIS ANALYSTOlyOPERATIONS PLANT ATTENDANT Work Phone: [facility] Comment on above: Results Start: 09-09-2021 Refill Hever Santiago A PRN.OPERATIONS PLANT ATTENDANT Work Phone: [facility] Comment on above: Refill Request Start: 06-22-2021 End: 06-22-2021 Patient encounter procedure Hever Santiago SENIOR HRIS ANALYST.OPERATIONS PLANT ATTENDANT Work Phone: [facility] Comment on above: Essential hypertensi on (Primary Dx); Pure hypercholesterolemia; Acquired hypothyroidism; Adjustment disorder with mixed anxiety and depressed mood; Peripheral polyneuropathy Start: 06-09-2021 Refill Paddy quintana MD Work Phone: [facility] Comment on above: Refill Request Start: 05-20-2021 Refill Paddy quintana MD Work Phone: [facility] Comment on above: Refill Request Procedures Date Procedure Procedure Detail Performing Clinician Start: 03-27-2024 Noninvasive ear/pulse oximetry multiple deter Raina Huynh MD Work Phone: Start: 03-05-2024 Brncdilat rspse spmtry pre&post-brncdilat admn Raina uHynh MD Work Phone: Start: 03-15-2023 SARS-CoV-2, Influenza [...] Detail Author Start: 06-30-2027 [facility] Start: 06-05-2026 [facility] Start: 06-29-2025 Hepatitis B surface antibody level LDL Cholesterol [facility] Start: 05-21-2025 DIABETES SCREEN DIABETES SCREEN [facility] Start: 05-21-2025 [facility] Start: 11-16-2024 End: 11-16-2024 Patient encounter procedure 11/16/2024 10:00 AM EDT Office Visit Cardiology [address] [place] [address] [place] [address] [place], [place] [id number] Dx: Paroxysmal atrial fibrillation (HCC) [I48.0] Cardiology Comment on above: Dx: Paroxysmal atria l fibrillation (HCC) [I48.0] Start: 10-16-2024 End: 10-16-2024 Patient encounter procedure 10/16/2024 3:20 PM EDT Office Visit [address] [place] [address] Paddy Zaidi MD [address] [place] [address] [place] [address] follow up [facility] Comment on above: follow up Start: 10-08-2024 Influenza vaccination Influenza Vacc ine (#1) [facility] Start: 10-02-2024 End: 10-02-2024 Patient encounter procedure 10/02/2024 2:00 PM EDT Office Visit Pulmonary Medicine [address] [place], [place] [phone] Flavia Smith APRN.OPERATIONS PLANT ATTENDANT [address] [place] [address] 3 MTH F/U / PT DECLINED EARLIER APPOINTMENT Pulmonary Medicine Comment on above: 3 MTH F/U / PT DECLI LUCILA EARLIER APPOINTMENT Start: 09-14-2024 DIABETES SCREEN DIABETES SCREEN [facility] Start: 07-13-2024 End: 07-13-2024 Patient encounter procedure 07/13/2024 4:20 PM EDT Office Visit [facility] [address] [place], [place] [id number] Paddy Zaidi MD [address] [place] [phone] Foot issues follow up [facility] Comment on above: Foot issues follow u p Start: 06-26-2024 End: 06-26-2024 Patient encounter procedure Pulmonary Medicine Comment on above: 3 MTH F/U Start: 06-05-2024 Hepatitis B surface antibody level LDL Cholesterol [facility] Start: 03-27-2024 End: 03-27-2024 Patient encounter procedure Pulmonary Medicine Comment on above: f/up Pneumonia of left lo wer lobe due to infectious organism [J18.9]; Lung nodules [R91.8] Start: 03-27-2024 End: 03-27-2024 ambulatory 03/27/2024 1:30 PM EST Procedure [facility] [address] [place] [address] [facility], Pulm [facility] [address] [place] [address] 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] PULM [facility] Comment on above: 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] Start: 03-26-2024 End: 03-26-2024 Patient encounter procedure 03/26/2024 3:00 PM EST Office Visit [address] [place], [place] [phone] Paddy Zaidi MD [address] [place], [place] [phone] follow up [facility] Comment on above: follow up Start: 03-21-2024 End: 03-21-2024 Patient encounter procedure Pulmonary Medicine Comment on above: f/up Pneumonia of left lo wer lobe due to infectious organism [J18.9]; Lung nodules [R91.8] Start: 03-21-2024 End: 03-21-2024 ambulatory 03/21/2024 1:30 PM EST [facility] [address] [place] [address] [facility], Pul Lab [facility] [address] [place] [address], [place] [address] 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] [facility]UL [facility] Comment on above: 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] Start: 03-14-2024 End: 03-14-2024 Patient encounter procedure Cat Scan Comment on above: Pneumonia of left lo wer lobe due to infectious organism [J18.9]; Lung nodules [R91.8] f/up Start: 03-14-2024 End: 03-14-2024 ambulatory 03/14/2024 12:30 PM EST Procedure [facility], [facility] [place] [address] Wstr, Pul Lab [facility] [address] [place] [address] 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] [facility] Comment on above: 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] Start: 02-21-2024 End: 05-22-2024 CBC panel - Blood by Automated count COMPLETE BLOOD COUNT Lab Routine Paroxysmal atrial fibrillation (HCC) Expected: 02/21/2024, Expires: 05/22/2024 [facility] Work Phone: Comment on above: Expected: 02/21/2024 , Expires: 05/22/2024 Start: 02-14-2024 End: 05-15-2024 Basic metabolic 2000 panel - Serum or Plasma BASIC METABOLIC PANEL Lab Routine Paroxysmal atrial fibrillation (HCC) Expected: 02/14/2024, Expires: 05/15/2024 [facility] Comment on above: Expected: 02/14/2024 , Expires: 05/15/2024 Start: 02-14-2024 End: 02-14-2024 Patient encounter procedure 02/14/2024 2:00 PM EST Office Visit Family Practice [address] [place], [place] [phone] Hever Martínez APRN.OPERATIONS PLANT ATTENDANT [address] [place] [id number] hosptial f/u breathing cold coughing touch of pneumonia Family [facility] Comment on above: hosptial f/u breathi ng cold coughing touch of pneumonia Start: 02-08-2024 Advance Directive Discussion Advance Directive Discussion [facility] Start: 02-08-2024 Medicare Advantage A nnual Wellness Visit Medicare Advantage Annual Wellness Visit [facility] Start: 12-18-2023 DIABETES SCREEN DIABETES SCREEN [facility] Start: 10-09-2023 Covid-19 Vaccine ( season) Covid-19 Vaccine ( season) [facility] Start: 10-09-2023 Influenza vaccination C [facility] Start: 07-08-2023 End: 07-08-2023 Patient encounter procedure 07/08/2023 3:40 PM EDT Office Visit Family Practice [address] [place], [place] [phone] Paddy Zaidi MD [address] [place] [phone] 1 month follow up [facility] Comment on above: 1 month follow up Start: 06-23-2023 End: 06-23-2023 Patient encounter procedure 06/23/2023 3:20 PM EDT Office Visit [facility] [address] [place], [place] [phone] Paddy Zaidi MD [address] [place], [place] [phone] MEDICARE WELLNESS [id number] [facility] Comment on above: MEDICARE WELLNESS [id number] 0.00 Start: 06-16-2023 End: 06-16-2023 ambulatory 06/16/2023 2:15 PM EDT Procedure [facility] [address] [address] Wstr, Pulm Lab [facility] [address] [place] [address] 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]; Hypoxemia [R09.02] [facility] Comment on above: 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) [I25.729]; Hypoxemia [R09.02] Start: 06-07-2023 End: 06-07-2023 Patient encounter procedure 06/07/2023 4:20 PM EDT Office Visit [facility] [address] [place], [place] [phone] Paddy Zaidi MD [address] [place], [place] [phone] anxiety, [facility] Comment on above: anxiety, Start: 05-27-2023 End: 08-26-2023 CBC panel - Blood by Automated count COMPLETE BLOOD COUNT Lab Routine Essential hypertension Mixed hyperlipidemia Peripheral polyneuropathy Expected: 05/27/2023, Expires: 08/26/2023 [facility] Comment on above: Expected: 05/27/2023 , Expires: 08/26/2023 Start: 05-27-2023 End: 08-26-2023 Comprehensive metabolic 2000 panel - Serum or Plasma COMPREHENSIVE METABOLIC PANEL Lab Routine Essential hypertension Expected: 05/27/2023, Expires: 08/26/2023 [facility] Work Phone: Comment on above: Expected: 05/27/2023 , Expires: 08/26/2023 Start: 05-27-2023 End: 08-26-2023 Hemoglobin A1c in Blood HEMOGLOBIN A1C Lab Routine Peripheral polyneuropathy Expected: 05/27/2023, Expires: 08/26/2023 [facility] Comment on above: Expected: 05/27/2023 , Expires: 08/26/2023 Start: 05-27-2023 End: 08-26-2023 Lipid 1996 panel - Serum or Plasma LIPID PANEL BASIC Lab Routine Mixed hyperlipidemia Expected: 05/27/2023, Expires: 08/26/2023 [facility] Comment on above: Expected: 05/27/2023 , Expires: 08/26/2023 Start: 05-27-2023 End: 08-26-2023 Thyrotropin [Units/volume] in Serum or Plasma THYROID STIMULATING HORMONE Lab Routine Hypothyroidism, unspecified type Expected: 05/27/2023, Expires: 08/26/2023 [facility] Comment on above: Expected: 05/27/2023 , Expires: 08/26/2023 Start: 05-22-2023 Hepatitis B surface antibody level LDL CHOLESTEROL [facility] Start: 03-15-2023 [facility] Start: 03-15-2023 Inhalation therapy procedure [facility] Start: 02-07-2023 Advance Directive Discussion Advance Directive Discussion [facility] Start: 12-23-2022 SHINGRIX VACCINE (1 of 2) SMALL GRIX VACCINE (1 of 2) [facility] Comment on above: Postponed from 10/05 (Declined at this time) Start: 12-23-2022 Urine microalbumin profile DTAP,TDAP,TD (1 - Tdap) [facility] Comment on above: Postponed from 10/05 (Declined at this time) Start: 10-08-2022 Covid-19 Vaccine () Covid-19 Vaccine () [facility] Start: 10-08-2022 Influenza vaccination C [facility] Start: 05-21-2022 End: 07-21-2022 Natriuretic peptide.B prohormone N-Terminal [Mass/volume] in Serum or Plasma NT PRO BNP Lab Routine 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) SOB (shortness of breath) Expected: 05/21/2022, Expires: 07/21/2022 [facility] Work Phone: Comment on above: Expected: 05/21/2022 , Expires: 07/21/2022 Start: 03-30-2022 End: 05-30-2022 CBC panel - Blood by Automated count CBC Lab Routine Medication management Expected: 03/30/2022, Expires: 05/30/2022 [facility] Work Phone: Comment on above: Expected: 03/30/2022 , Expires: 05/30/2022 Start: 03-30-2022 End: 05-30-2022 SCHEDULE LAB TESTING SCHEDULE LAB TESTING Lab Routine Expected: 03/30/2022, Expires: 05/30/2022 [facility] Work Phone: Comment on above: Expected: 03/30/2022 , Expires: 05/30/2022 Start: 03-30-2022 End: 05-30-2022 Thyrotropin [Units/volume] in Serum or Plasma TSH BLD Lab Routine Acquired hypothyroidism Expected: 03/30/2022, Expires: 05/30/2022 [facility] Work Phone: Comment on above: Expected: 03/30/2022 , Expires: 05/30/2022 Start: 02-07-2022 ADVANCE DIRECTIVE DISCUSSION ADVANCE DIRECTIVE DISCUSSION [facility] Start: 12-23-2021 Patient referral [facility] Work Phone: Start: 12-18-2021 [facility] Start: 12-18-2021 [facility] Work Phone: Start: 12-17-2021 Referral to occupati onal therapist [facility] Work Phone: Start: 12-17-2021 Referral to service [facility] Work Phone: Start: 12-17-2021 Hepatitis B surface antibody level LDL CHOLESTEROL [facility] Start: 12-16-2021 End: 12-17-2021 [facility] Work Phone: Start: 12-16-2021 Cardiac monitoring [facility] Work Phone: Start: 12-16-2021 Cardiac rehabilitati on - phase 1 [facility] Work Phone: Start: 12-16-2021 Cardiac rehabilitati on - phase 2 [facility] Work Phone: Start: 12-16-2021 Notification of physician [facility] Work Phone: Start: 12-16-2021 Patient discharge [facility] Work Phone: Start: 12-16-2021 Systemic arterial pressure monitoring [facility] Work Phone: Start: 12-16-2021 Taking patient vital signs [facility] Work Phone: Start: 12-16-2021 Vascular disease ris k assessment [facility] Work Phone: Start: 12-16-2021 Vital signs measurements [facility] Work Phone: Start: 12-15-2021 Care planning and pr oblem solving actions [facility] Work Phone: Start: 12-15-2021 Patient referral [facility] Work Phone: Start: 12-15-2021 Catheterization of vein [facility] Work Phone: Start: 12-15-2021 Medication not administered [facility] Work Phone: Start: 12-15-2021 [facility] Work Phone: Start: 12-14-2021 Care planning and pr oblem solving actions [facility] Work Phone: Start: 12-14-2021 Ambulation without limitation [facility] Work Phone: Start: 12-14-2021 Assessment of risk o f venous thromboembolism [facility] Work Phone: Start: 12-14-2021 Catheterization of vein [facility] Work Phone: Start: 12-14-2021 Chart related administrative procedure [facility] Work Phone: Start: 12-14-2021 Elevation of head of bed [facility] Work Phone: Start: 12-14-2021 Insertion of cathete r into peripheral vein [facility] Work Phone: Start: 12-14-2021 Measuring intake and output [facility] Work Phone: Start: 12-14-2021 Medication education [facility] Work Phone: Start: 12-14-2021 Oxygen therapy [facility] Work Phone: Start: 12-14-2021 Patient education [facility] Work Phone: Start: 12-14-2021 Providing care accor ding to standard [facility] Work Phone: Start: 12-14-2021 Referral to review coordinator [facility] Work Phone: Start: 12-14-2021 [facility] Work Phone: Start: 12-14-2021 Troponin I measurement [facility] Work Phone: Start: 12-14-2021 Bacteria identified in Sputum by Culture [facility] Work Phone: Start: 12-14-2021 Legionella pneumophi la Ag [Presence] in Urine [facility] Work Phone: Start: 12-14-2021 Streptococcus pneumo niae antigen assay [facility] Work Phone: Start: 12-14-2021 [facility] Work Phone: Start: 12-14-2021 End: 12-14-2021 Following clinical pathway protocol [facility] Work Phone: Start: 12-14-2021 Verification [facility] Work Phone: Start: 12-14-2021 Admission procedure [facility] Work Phone: Start: 12-14-2021 [facility] Work [facility]: Start: 10-08-2021 Influenza vaccination INFLUENZA (#1) [facility] Start: 09-10-2021 End: 11-10-2021 Basic metabolic 2000 panel - Serum or Plasma BASIC METABOLIC PNL Lab Routine Essential hypertension Hypokalemia Expected: 09/10/2021, Expires: 11/10/2021 [facility] Work Phone: Comment on above: Expected: 09/10/2021 , Expires: 11/10/2021 Start: 02-07-2021 ADVANCE DIRECTIVE DISCUSSION ADVANCE DIRECTIVE DISCUSSION [facility] Start: 08-25-2020 COVID-19 VACCINE (3 - Booster for Moderna series) COVID-19 VACCINE (3 - Booster for Moderna series) [facility] Start: 05-23-2020 COVID-19 VACCINE (3 - Booster for Moderna series) COVID-19 VACCINE (3 - Booster for Moderna series) [facility] Start: 05-23-2020 COVID-19 VACCINE (3 - Moderna series) COVID-19 VACCINE (3 - Moderna series) [facility] Start: 10-05-2014 RSV Vaccine (1 - 1-d ose 75+ series) RSV Vaccine (1 - 1-dose 75+ series) [facility] Start: 1999 RSV Vaccine (1 - 1-d ose 60+ series) RSV Vaccine (1 - 1-dose 60+ series) [facility] Start: 10-05-1989 SHINGRIX VACCINE (1 of 2) SMALL GRIX VACCINE (1 of 2) [facility] Start: 10-05-1958 Urine microalbumin profile [facility] Start: 10-05-1957 SPIROMETRY SPIROMETRY [facility] End: 04-04-2025 CT Chest WO contrast CT CHEST WO IVCON Radiology Routine Pneumonia of left lower lobe due to infectious organism Lung nodules 1 Occurrences starting 03/05/2024 until 04/04/2025 [facility] Work Phone: Comment on above: 1 Occurrences starti ng 03/05/2024 until 04/04/2025 CT Chest WO contrast CT CHEST WO IVCON Radiology Routine Pneumonia of left lower lobe due to infectious organism Lung nodules 03/27/2024 3:54 PM EST [facility] Work Phone: ECG COMPLETE ECG COMPLETE ECG Routine 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) Paroxysmal atrial fibrillation (HCC) 05/21/2022 3:54 PM EDT [facility] Work Phone: OXIMETRY - NOCTURNAL OXIMETRY - NOCTURNAL Procedures Routine Hypoxia Ordered: 03/27/2024 [facility] Work Phone: Comment on above: Ordered: 03/27/2024 End: 04-04-2025 OXIMETRY WITH AMBULATION OXIMETRY WITH AMBULATION PFT Routine Stage 3 severe COPD by GOLD classification ([facility]) 1 Occurrences starting 03/05/2024 until 04/04/2025 [facility] Comment on above: 1 Occurrences starti ng 03/05/2024 until 04/04/2025 Patient Education [facility] Work Phone: Patient referral [facility] Work Phone: End: 02-15-2025 PT panel - Platelet poor plasma by Coagulation assay PROTHROMBIN TIME Lab Routine Chronic atrial fibrillation (HCC) oysterman current use of anticoagulant therapy Once per week for 52 Occurrences starting 02/16/2024 until 02/15/2025 [facility] Work Phone: Comment on above: Once per week for 52 Occurrences starting 02/16/2024 until 02/15/2025 End: 06-20-2023 Radiologic exam chest 2 views XR CHEST 2V FRONTAL/LAT Radiology Routine 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) Paroxysmal atrial fibrillation (HCC) SOB (shortness of breath) 1 Occurrences starting 05/21/2022 until 06/20/2023 [facility] Work Phone: Comment on above: 1 Occurrences starti ng 05/21/2022 until 06/20/2023 Radiologic exam ches t 2 views XR CHEST 2V FRONTAL/LAT Radiology Routine Pneumonia of right middle lobe due to infectious organism Ordered: 06/02/2022 [facility] Work Phone: Comment on above: Ordered: 06/02/2022 End: 07-06-2024 SIX MINUTE WALK SIX MINUTE WALK PFT Routine 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) Hypoxemia 1 Occurrences starting 06/07/2023 until 07/06/2024 [facility] Comment on above: 1 Occurrences starti ng 06/07/2023 until 07/06/2024 Troponin I measurement [facility] Work Phone: End: 07-06-2024 XR Chest PA and Lateral XR CHEST 2V FRONTAL/LAT Radiology Routine 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) SOB (shortness of breath) 1 Occurrences starting 06/07/2023 until 07/06/2024 [facility] Work Phone: Comment on above: 1 Occurrences starti ng 06/07/2023 until 07/06/2024 [facility] Immunizations Immunization Date Immunization Notes Care Provider Elise hernandez 02-14-2024 influenza, high dose seasonal, preservative-free Hever Martínez APRN.CNP Work Phone: [facility] 02-14-2024 influenza virus vacc ine, unspecified formulation Paddy Zaidi MD Work Phone: [facility] 12-17-2020 influenza, high-dose , quadrivalent vaccine (FLUZONE HIGH DOSE QUADRIVALENT) Paddy Zaidi MD Work Phone: [facility] 12-17-2020 influenza virus vacc ine, unspecified formulation Paddy Zaidi MD Work Phone: [facility] 03-28-2020 COVID-19 vaccine, fu ll dose (MODERNA) Paddy Zaidi MD Work Phone: [facility] 02-29-2020 COVID-19 vaccine, fu ll dose (MODERNA) Paddy Zaidi MD Work Phone: [facility] 07-31-2019 pneumococcal polysaccharide vaccine, 23 valent Paddy Zaidi MD Work Phone: [facility] 07-31-2019 pneumococcal vaccine , unspecified formulation Dr. Shayne Zaidi Work Phone: [facility] 01-12-[address] Shayne Zaidi Work Phone: [facility] 01-12-2018 influenza, high dose seasonal, preservative-free Paddy Zaidi MD Work Phone: [facility] 01-12-2018 influenza, seasonal, injectable Paddy Zaidi MD Work Phone: [facility] 01-12-2018 influenza, seasonal, injectable, preservative free Paddy Zaidi MD Work Phone: [facility] 01-12-2018 pneumococcal polysaccharide vaccine, 23 valent Paddy Zaidi MD Work Phone: [facility] 01-12-2018 pneumococcal vaccine , unspecified formulation Paddy Zaidi MD Work Phone: [facility] 03-31-2017 pneumococcal conjuga te vaccine, 13 valent Paddy Zaidi MD Work Phone: [facility] 12-08-[address] Shayne Zaidi Work Phone: [facility] 12-08-2016 influenza, seasonal, injectable Paddy Zaidi MD Work Phone: [facility] 12-08-2016 influenza, seasonal, injectable, preservative free Paddy Zaidi MD Work Phone: [facility] 11-27-2016 influenza, high dose seasonal, preservative-free Paddy Zaidi MD Work Phone: [facility] Work Phone: 12-01-2013 influenza virus vacc ine, whole virus Paddy Zaidi MD Work Phone: [facility] 11-23-2012 influenza virus vacc ine, unspecified formulation Paddy Zaidi MD Work Phone: [facility] 01-16-2010 pneumococcal polysaccharide vaccine, 23 valent Paddy Zaidi MD Work Phone: [facility] 12-09-2009 influenza virus vacc ine, unspecified formulation Paddy Zaidi MD Work Phone: [facility] 12-23-2008 influenza virus vacc ine, unspecified formulation Paddy Zaidi MD Work Phone: [facility] Work Phone: Payers Date Payer Category Payer Self-pay [id number] 2021 Medicare [id number] 2021 Medicare AETNA MEDICARE A ETNA MEDICARE PPO [id number] 2021-Present [phone] [address] [place] [address] PP [id number] 2021 Medicare (Managed Care) AETNA [place] [id number] 2014 Private Health Insurance 101 [id number] 2009 Medicare AETNA MEDICARE A ETNA MEDICARE PPO [id number] 2009-Present [phone] [address] [place] [address] PPO [id number] Medicare MEDICARE PART A B [id number] Unknown [id number] Unknown [id number] Social History Date Type Detail Facility Start: 02-01-2017 End: 03-05-2024 Tobacco smoking status NHIS Ex-smoker [facility] Start: 10-17-1967 End: 10-16-1992 History of tobacco use Current smoker [facility] Start: 10-17-1967 End: 10-16-1992 History of tobacco use Cigarette Smoker [facility] Start: 12-17-2020 End: 07-13-2024 Alcohol intake Current non-drinker of alcohol (finding) [facility] Start: 1940 Sex Assigned At Not on file C [facility] Start: 06-12-2021 End: 12-23-2021 Exposure to SARS-CoV-2 (event) Not sure [facility] Start: 02-01-2017 End: 07-20-2022 Cigarettes smoked current (pack per day) - Reported 2 [facility] Start: 02-01-2017 End: 03-05-2024 Tobacco use and exposure Smokeless tobacco non-user [facility] Start: 12-14-2021 End: 03-15-2023 Tobacco smoking status ARIS Unknown if ever smoked [facility] Start: 07-28-2019 None [facility] Start: 07-28-2019 Spouse/ Signif icant Other [facility] Start: 07-28-2019 Non-smoker [facility] Start: 1940 Sex Assigned At Male W [facility] Start: 06-02-2022 End: 07-20-2022 Tobacco use panel [facility] Adult Depression Screening Assessment 0 [facility] Medical Equipment Procedure Code Equipment Code [...] X3 Insert for MDM FDA Start: 07-24-2018 ([id number]) Drug-eluting cor onary artery stent, bioabsorbable-polymer -coated [id number] FDA Start: 12-16-2021 6.5MM CANNULATED SCREW FDA [...] Assessment Result Facility 12-18-2021 Functional status Chair [facility] Work Phone: 07-29-2014 Are you deaf, or do you have serious difficulty hearing No 07/29/2014 10:56 AM EDT Sindhu Phelps Ma No [facility] 07-29-2014 Are you blind, or do you have serious difficulty seeing, even when wearing glasses No 07/29/2014 10:56 AM EDT Sindhu Phelps Ma No [facility] 07-29-2014 Do you have serious difficulty walking or climbing stairs No 07/29/2014 10:56 AM EDT Sindhu Phelps Ma No [facility] 07-29-2014 Do you have difficul ty dressing or bathing No 07/29/2014 10:56 AM EDT Sindhu Phelps Ma No [facility] 07-29-2014 Because of a physica l, mental, or emotional condition, do you have difficulty doing errands alone such as visiting a physician's office or shopping No 07/29/2014 10:56 AM EDT Sindhu Phelps Ma No [facility] Mental Status Date Assessment Result Facility 12-18-2021 Cognitive function Voice/Name [facility] Work Phone: 07-29-2014 Because of a physica l, mental, or emotional condition, do you have serious difficulty concentrating, remembering, or making decisions No 07/29/2014 10:56 AM EDT Sindhu Phelps Ma No [facility] Clinical Notes 05-21-2021 to 09-08-2024 Telephone [...] seek emergency treatment and she verbalized understanding. [facility] 09-08-2024 Miscellaneous Notes Patient's caregiver called [...] she verbalized understanding. documented in this encounter [facility] 09-05-2024 Telephone encounter Note Lvm and letter Provider only at [place] now [facility] 09-05-2024 Miscellaneous Notes Lvm and letter Provider only at [place] now documented in this encounter [facility] 08-14-2024 Telephone encounter Note Pharmacy verified [...] Not applicable Please advise. Vivi Shaffer MA [facility] 08-14-2024 Miscellaneous Notes Pharmacy verified in [...] Vivi Shaffer MA documented in this encounter [facility] 07-13-2024 Note HNO ID: [id number] Author: PADDY ZAIDI MD Service: ? Author Type: Physician Type: Progress Notes Filed: 07/13/2024 17:45 Note Text: Subjective Adrian Pedersen is an 83-year-old male with a history of anxiety, presenting with dyspnea, lower extremity edema, and anxiety attacks, accompanied by his caregiver, Hui Ray, who is providing additional history. Dyspnea atherosclerotic heart disease: Pending electophys eval in [place] in November. No regular review coordinator. 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 (I25.10) - Referral to cardiology in [place] initiated for further evaluation and management. - [...] - Prescription sent to pharmacy. Recording using [employer] software for draft documentation of the visit was discussed with the patient/authorized branch sales and service representative; all questions welcomed and answered. Patient/authorized branch sales and service representative agreed to proceed Paddy Zaidi MD [facility] 07-13-2024 History of Present illness Narrative Subjective Adrian Pedersen is an 83-year-old male with a history of anxiety, presenting with dyspnea, lower extremity edema, and anxiety attacks, accompanied by his caregiver, Hui Rya, who is providing additional history. Dyspnea atherosclerotic heart disease: Pending electophys eval in [place] in November. No regular review coordinator. 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 (I25.10) - Referral to cardiology in [place] initiated for further evaluation and management. - [...] - Prescription sent to pharmacy. Recording using [employer] software for draft documentation of the visit was discussed with the patient/authorized branch sales and service representative; all questions welcomed and answered. Patient/authorized branch sales and service representative agreed to proceed Paddy Zaidi MD documented in this encounter [facility] 07-13-2024 Telephone encounter Note Review of OSH CT with most recent CT does not show worsening of right hemidiaphragm. Left lower lobe nodule no longer seen. Atelectasis in LLL but no further concern for PNA. Needs to complete overnight oxygen testing. [facility] 07-13-2024 Miscellaneous Notes Review of OSH CT with most recent CT does not show worsening of right hemidiaphragm. Left lower lobe nodule no longer seen. Atelectasis in LLL but no further concern for PNA. Needs to complete overnight oxygen testing. documented in this encounter [facility] 07-13-2024 Telephone encounter Note The following [...] ZAIDI Due for appt. Paddy Zaidi MD [facility] 07-13-2024 Miscellaneous Notes The following approved medication requests have been transmitted electronically. Requested Prescriptions Signed Prescriptions Disp Refills PARoxetine (PAXIL) 40 mg tablet 90 tablet 0 Sig: Take 1 tablet by mouth once daily Authorizing Provider: PADDY ZAIDI potassium chloride (K-TAB) 10 mEq tablet 180 tablet 0 Sig: TAKE 2 TABLETS BY MOUTH IN THE MORNING Authorizing Provider: PADDY ZAIDI for appt. Paddy Zaidi MD Prescription Refill [...] 2024 1:41 PM documented in this encounter [facility] 07-13-2024 Telephone encounter Note Prescription Refill [...] Summers LPN July 13, 2024 1:41 PM [facility] 07-12-2024 Telephone encounter Note Prescription Refill [...] Ann LPN July 12, 2024 11:46 AM [facility] 07-12-2024 Miscellaneous Notes Prescription Refill Information [...] 2024 11:46 AM documented in this encounter [facility] 07-03-2024 Telephone encounter Note Spoke to Hui who said patient is taking coumadin daily - believes it is 1 pill a day but is not with patient/able to check. States she was unaware that INR needed to be completed - has not been monitored. OV tomorrow Would you like to make changes at this time or wait until OV? [facility] 07-03-2024 Miscellaneous Notes Spoke to Hui who said patient is taking coumadin daily - believes it is 1 pill a day but is not with patient/able to check. States she was unaware that INR needed to be completed - has not been monitored. OV tomorrow Would you like to make changes at this time or wait until OV? Called patient's critical care physician Hui and patient's son, no answer at this time. Left voicemail to call the office back. Please advise the patient that his INR (no units) Date Value 06/29/2024 1.2 is very too low/subtherapeutic. INR has not been checked in 3 months. Has someone else been monitoring this? Is he taking coumadin? documented in this encounter [facility] 06-29-2024 Telephone encounter Note Called patient's critical care physician Hui and patient's son, no answer at this time. Left voicemail to call the office back. [facility] 06-29-2024 Telephone encounter Note Please advise the patient that his INR (no units) Date Value 06/29/2024 1.2 is very too low/subtherapeutic. INR has not been checked in 3 months. Has someone else been monitoring this? Is he taking coumadin? [facility] Work Phone: 06-29-2024 Note HNO ID: [id number] Author: FLAVIA SMITH APRN.OPERATIONS PLANT ATTENDANT Service: ? Author Type: Nurse Practitioner Type: Progress Notes Filed: 06/29/2024 19:32 Note Text: Pulmonary Medicine Patients name: Arturo Campbell PCP: Paddy Zaidi MD CC: follow-up HPI: Arturo Pedersen is a 83 year old male former 95-misl-fnkz smoker quitting in 1992 with PMH significant for obesity, coronary artery disease s/p CABG and stent, previous stroke, GERD, HLD, prostate cancer s/p radiation, HTN, PAF on AC, central sleep apnea not wearing PAP, chronic hypoxemic respiratory failure. Current inhaled therapy Advair and PRN Albuterol. He presents today for follow-up with his management instructor. YOLANDA 03/2024 with exertional dyspnea, chest tightness and wheezing. Started on Advair at that time. Oximetry with ambulation at that time did not show need for supplemental O2 with exertion. He and his management instructor insist he can't even stand up without [...] appearance. He is not ill-appearing. Comments: Very [place] HENT: Head: Normocephalic. Nose: No rhinorrhea. Mouth/Throat: Mouth: Mucous membranes are moist. Pharynx: No oropharyngeal exudate. Cardiovascular: (more content not included)... [facility] 06-21-2024 Note HNO ID: [id number] Author: CORRINA FUENTES MA Service: ? Author Type: Financial Aid Officer Type: Progress Notes Filed: 06/21/2024 08:30 Note Text: POPULATION HEALTH NAVIGATION OUTREACH Action/FYI Letter received and sent to be mailed. Navigation Signature: Corrina Fuentes MA June 21, 2024 8:30 AM [facility] 06-20-2024 Note HNO ID: [id number] Author: ANT DIAS MA Service: ? Author Type: Financial Aid Officer Type: Progress Notes Filed: 06/20/2024 08:24 Note [...] Healthy at Home (H@H) phone number provided [phone]: Yes via letter Reason for Outreach [facility] Gaps due: Medicare Annual Wellness Visit Patient Contacted: Unable or unnecessary to reach patient: Unable to leave message Letter mailed Navigation Signature: Ant Dias MA June 20, 2024 8:22 AM [facility] 06-19-2024 Telephone encounter Note The following approved [...] once daily. Authorizing Provider: PADDY ZAIDI MD [facility] 06-19-2024 Miscellaneous Notes The following approved [...] 2024 1:48 PM documented in this encounter [facility] 06-18-2024 Telephone encounter Note Prescription Refill [...] Ann LPN June 18, 2024 1:48 PM [facility] 06-18-2024 Note HNO ID: [id number] Author: ANT DIAS MA Service: ? Author Type: Financial Aid Officer Type: Progress Notes Filed: 06/18/2024 12:47 Note [...] Healthy at Home (H@H) phone number provided [phone]: No Reason for Outreach [facility] Gaps due: Medicare Annual Wellness Visit Patient Contacted: Unable or unnecessary to reach patient: Unable to leave message Navigation Signature: Ant Dias MA June 18, 2024 12:44 PM [facility] 06-18-2024 History of Present illness Narrative POPULATION [...] Healthy at Home (H@H) phone number provided [phone]: No Reason for Outreach [facility] [...] 2024 12:28 PM documented in this encounter [facility] 06-18-2024 Note HNO ID: [id number] Author: BRAYAN STALLWORTH RN Service: ? Author [...] Stallworth RN June 18, 2024 12:28 PM [facility] 06-18-2024 Note Patient Outreach (AM [facility]) ARTURO PEDERSEN ([id number]) 1940 M Date Time Provider Department 06/18/24 [...] Healthy at Home (H@H) phone number provided [phone]: No Reason for Outreach [facility] Care Gaps due: Medicare Annual Wellness Visit Patient Contacted: Unable or unnecessary to reach patient: Unable to leave message Navigation Signature: Ant Dias MA June 18, 2024 12:44 PM Ant Dias MA 06/20/2024 8:24 AM Signed POPULATION HEALTH NAVIGATION OUTREACH Action/FYI Patient is on [facility] Outreach List and needs appointment to address [...] Healthy at Home (H@H) phone number provided [phone]: Yes via letter Reason for Outreach [facility] Care Gaps due: Medicare Annual Wellness Visit Patient Contacted: Unable or unnecessary to reach patient: Unable to leave message Letter mailed Navigation Signature: Ant Dias MA June 20, 2024 8:22 AM Corrina Fuentes MA 06/21/2024 8:30 AM Signed POPULATION [facility] NAVIGATION OUTREACH Action/FYI Letter received and sent to be mailed. Navigation Signature: Corrina Fuentes MA June 21, 2024 8:30 AM Allergies As of Date: 06/18/2024 Noted Allergy Reaction ASPIRIN 04/19/2018 16 - Unknown OXYCODONE 04/19/2018 14 - Other: See Comments PERCODAN (OXYCODONE-ASPIRIN) 12/17/2004 1 - Mental Status Change Date Reviewed: 03/27/2024 Reviewed by: Flavia Smith APRN.OPERATIONS PLANT ATTENDANT - Fully Assessed Reason for Visit: Population Health Navigation Outreach [3910] Cmt: [facility] Prescriptions as of 06/21/2024 - furosemide (LASIX) [...] Obstructive sleep apnea (more content not included)... [facility] 04-26-2024 Note HNO ID: [id number] Author: TALIA FERREIRA MA Service: ? Author Type: Financial Aid Officer Type: Progress Notes Filed: 04/26/2024 14:42 Note [...] Ferreira MA April 26, 2024 2:37 PM [facility] 04-26-2024 History of Present illness Narrative POPULATION [...] 2024 2:37 PM documented in this encounter [facility] 04-26-2024 Note Patient Outreach (NE TNAV) ARTURO PEDERSEN ([id number]) 1940 M Date Time Provider Department 04/26/24 [...] Date Reviewed: 03/27/2024 Reviewed by: Flavia Smith APRN.OPERATIONS PLANT ATTENDANT - Fully Assessed Reason for Visit: Population [...] Anxiety [F41.9] 12/23/2021 Atherosclerotic heart disease of eyak coronar*10/19/2017 Cerebrovascular accident (CVA) (HCC) [I63.9] 12/23/2021 [...] Encounter Status:Closed by TALIA FERREIRA on 04/26/24 [facility] 04-09-2024 Miscellaneous Notes Prescription Refill Information The [...] 2024 11:10 AM documented in this encounter [facility] 04-09-2024 Telephone encounter Note Prescription Refill [...] Ann LPN April 09, 2024 11:10 AM [facility] 03-27-2024 History of Present illness Narrative [...] PATIENT PRESENTS WITH AN IMPLANTABLE OR ATTACHED SONOGRAPHY TECHNOLOGIST: No RADIOLOGY DEPARTMENT: CT; Exam(s) Completed: Chest PERIPHERAL IV DATA: Not applicable SIGNED BY: RT Alfonso(R) March 27, 2024 3:57 PM documented in this encounter [facility] 03-27-2024 Note HNO ID: [id number] Author: DEANNE SAMUELS RT(Lillie) Service: ? Author Type: Fourdrinier Machine Operator Type: Progress Notes Filed: 03/27/2024 15:57 Note [...] PATIENT PRESENTS WITH AN IMPLANTABLE OR ATTACHED SONOGRAPHY TECHNOLOGIST: No RADIOLOGY DEPARTMENT: CT; Exam(s) Completed: Chest PERIPHERAL IV DATA: Not applicable SIGNED BY: RT Alfonso(R) March 27, 2024 3:57 PM [facility] 03-27-2024 Instructions Flavia Smith APRN.[facility] - 03/27/2024 2:58 PM EST Fluticasone-salmeterol [...] get the results. documented in this encounter [facility] 03-27-2024 History of Present illness Narrative Images from the original note were not included. Pulmonary Medicine Patients name: Arturo Campbell PCP: Paddy Zaidi MD CC: follow-up HPI: Arturo Pedersen is a 83 year old male former 47-fbaa-dhby smoker quitting in 1992 with PMH significant [...] Had also just previously been hospitalized at [facility] for Pneumonia. At his last visit, [...] tightness. Has frequent wheezing that prompts his management instructor to remind him to use Albuterol. No [...] 160-9-4.8 mcg/actuation HFA aerosol inhaler Generic drug: txgnfytexx-ribxrmih-opbwcfhptp Inhale 2 Puffs as instructed two times [...] which included preparing to see the patient, pngj-kh-bblp patient care, completing clinical documentation, performing a medically appropriate examination, counseling and educating the patient/family/caregiver, and ordering medications, tests, or procedures. documented in this encounter [facility] 03-27-2024 Note HNO ID: [id number] Author: FLAVIA SMITH APRN.CNP Service: ? Author Type: Nurse Practitioner Type: Progress Notes Filed: 03/27/2024 17:53 Note Text: Pulmonary Medicine Patients name: Arturo Campbell PCP: Paddy Zaidi MD CC: follow-up HPI: Arturo Pedersen is a 83 year old male former 46-edkq-guhq smoker quitting in 1992 with PMH significant [...] Had also just previously been hospitalized at [facility] for Pneumonia. At his last visit, [...] tightness. Has frequent wheezing that prompts his management instructor to remind him to use Albuterol. No [...] 160-9-4.8 mcg/actuation HFA aerosol inhaler Generic drug: bdmfwgluhn-ybkfkuah-pinzrptemt Inhale 2 Puffs as instructed two times [...] HENT: Head: [place]oc (more content not included)... [facility] 03-27-2024 Note HNO ID: [id number] Author: SHELLY SIMS RPFT Service: ? Author [...] Patient does not have a faster pace [facility] 03-27-2024 Procedure note Associated Ord er(s): OXIMETRY [...] Patient does not have a faster pace [facility] 03-27-2024 Procedure note Associated Ord er(s): [...] a faster pace documented in this encounter [facility] 03-27-2024 Note HNO ID: [id number] Author: SHELLY SIMS RPFT Service: ? Author Type: Respiratory Therapist Type: Progress Notes Filed: 03/27/2024 13:50 Note Text: PULM FUNCTION: Provider: Raina Huynh MD Assisting Tech: Shelly Sims RPFT Oximetry - Ambulation: 1 [facility] 03-27-2024 History of Present illness Narrative PULM FUNCTION: Provider: Raina Huynh MD Assisting Tech: Shelly Sims RPFT Oximetry - Ambulation: 1 documented in this encounter [facility] 03-21-2024 Telephone encounter Note I spoke [...] this week, but they declined. Lacie Muñoz [facility] 03-21-2024 Miscellaneous Notes I spoke with [...] with Dr. Zaidi this week Hever Martínez APRN.OPERATIONS PLANT ATTENDANT Patient states he has discussed some issues [...] medical attention. ISAUROI documented in this encounter [facility] 03-21-2024 Telephone encounter Note Please offer appointment with Dr. Zaidi this week Hever Martínez APRN.OPERATIONS PLANT ATTENDANT [facility] 03-21-2024 Telephone encounter Note Hui states patient was supposed to have a refill of the Lasix after an OV on 02/14/2024, it was not prescribed. Has been out since that visit. Please address. Rx pended. [facility] 03-21-2024 Miscellaneous Notes Hui states patient was supposed to have a refill of the Lasix after an OV on 02/14/2024, it was not prescribed. Has been out since that visit. Please address. Rx pended. documented in this encounter [facility] 03-21-2024 Telephone encounter Note Patient states [...] ED if sx warrant medical attention. FYI [facility] 03-21-2024 Telephone encounter Note Spoke to Hui and patient at length. Patient will take 7.5 mg of Coumadin tomorrow then resume taking 2.5 mg like he has been. Will have BW done around 03/29. Tracker done [facility] 03-21-2024 Miscellaneous Notes Spoke to Hui and patient at length. Patient will take 7.5 mg of Coumadin tomorrow then resume taking 2.5 mg like he has been. Will have BW done around 03/29. Tracker done Called [phone]. No answer. Mailbox still full. Called Hui at [phone] Vm still full-could not leave message. Called [...] a day. Call Hui back with response [phone]-did advise her to clean out VM so [...] Paddy Zaidi MD documented in this encounter [facility] 03-20-2024 Note HNO ID: [id number] Author: ELENITA DEY MA Service: ? Author Type: Financial Aid Officer Type: Progress Notes Filed: 03/20/2024 16:32 Note [...] Dey MA March 20, 2024 4:29 PM [facility] 03-20-2024 History of Present illness Narrative POPULATION [...] 2024 4:29 PM documented in this encounter [facility] 03-20-2024 Note Patient Outreach (NE TNAV) ARTURO PEDERSEN ([id number]) 1940 M Date Time Provider Department 03/20/24 [...] Date Reviewed: 03/05/2024 Reviewed by: Pantea, Edwina, CAMPUS SAFETY OFFICER - Fully Assessed Reason for Visit: Population Health Navigation Outreach [3910] Cmt: [employer] High Risk Attempt #1 Prescriptions as of 03/20/2024 - warfarin (COUMADIN) 2.5 mg tablet TAKE 1 TABLET BY MOUTH ONCE DAILY DIRECTED - yqaaalkjkc-mbfpmgju-zaihqxwgcx (BREZTRI AEROSPHERE) 160-9-4.8 mcg/actuation HFA aerosol inhaler [...] Anxiety [F41.9] 12/23/2021 Atherosclerotic heart disease of eyak coronar*10/19/2017 Cerebrovascular accident (CVA) (HCC) [I63.9] 12/23/2021 [...] Encounter Status:Closed by ELENITA DEY on 03/20/24 [facility] 03-19-2024 Telephone encounter Note Called [phone]. No answer. Mailbox still full. [facility] 03-17-2024 Telephone encounter Note Called Hui at [phone] Vm still full-could not leave message. Called all other listed numbers- no answer. VM's are all full-could not leave message. Not active on MyChart. Will need to try again later. Violetta Humphrey RN [facility] 03-16-2024 Telephone encounter Note Just take 1 time dose of 5 mg. One extra pill just one dose. Check INR in 2 weeks Paddy Zaidi MD [facility] 03-16-2024 Telephone encounter Note Spoke to Hui- states he has been taking warfarin every day, 2.5 mg. Never misses a day. Call Hui back with response [phone]-did advise her to clean out VM so we can leave messages. Violetta Humphrey RN [facility] 03-13-2024 Telephone encounter Note Prescription Refill Information [...] Ann LPN March 13, 2024 8:22 AM [facility] 03-13-2024 Miscellaneous Notes Prescription Refill Information [...] 2024 8:22 AM documented in this encounter [facility] 03-12-2024 Telephone encounter Note Called pt, no answer. LVM to call office back [facility] 03-07-2024 Telephone encounter Note Called all numbers listed in chart- no answer. No VM available to leave message. Not on MYChart. Will need to try again later. Violetta Humphrey RN [facility] 03-06-2024 Telephone encounter Note INR is a little low , have you been taking warfarin 2.5 mg daily every day? May need to increase dose a bit. Please review with patient and advise. Paddy Zaidi MD [facility] 03-06-2024 Telephone encounter Note Breztri and Trelegy [...] inquire about medication assistance. Edwina Jones LPN [facility] 03-06-2024 Miscellaneous Notes Breztri and Trelegy [...] to afford it. documented in this encounter [facility] 03-06-2024 Telephone encounter Note Analilia - Pharmacist from [facility] calling and asking if there is an alternative to the Breztri inhaler? Patient has a $100.00 copay and is unable to afford it. [facility] 03-05-2024 History of Present illness Narrative Images from the original note were not included. . [facility] Note Patient name: Arturo Pedersen PCP: Paddy Zaidi MD Referring Physician: Hever Martínez CNP Consultation requested by Hever Martínez for an opinion regarding COPD. My final recommendations will be communicated back to the requesting physician by way of shared Medical record or letter to requesting physician via [place] mail. CC: COPD HPI: Arturo Pedersen 83 year old male former 34-quzp-boyc smoker quitting in 1992 with PMH significant for obesity, coronary artery disease s/p CABG and stent, previous stroke, GERD, HLD, prostate cancer s/p radiation, HTN, PAF on AC, central sleep apnea not wearing PAP, chronic hypoxemic respiratory failure being sent for evaluation of COPD. Recently hospitalized at [facility] for pneumonia. CT of the chest [...] recurrent bronchitis. DME: [employer] DATA: PFT: PFT [facility] 10/23/2018; FVC 2.41 L 57% FEV1 1.62 L 54% FEV1/FVC 67% No improvement post-bronchodilator TLC 5.01 L 76% RV 2.60 L 94% RV/TLC 52% DLCO 15.2 73% Imaging / Diagnostic Studies: [facility] MR#: [id number] Acct: [id number] Name: ARTURO PEDERSEN Rep #: [id number] : 1940 M 83 From: Shayne Holt [...] the tongue every 5 minutes as needed. bibwblzeqc-pndbjppk-djqmaoledj (BREZTRI AEROSPHERE) 160-9-4.8 mcg/actuation HFA aerosol inhaler [...] use: No Drug use: No Worked at [employer] for 32 years Pets: None FAMILY HISTORY Problem Relation Age of Onset Heart Father Prostate Cancer Father Alzheimer's Disease Mother PAST SURGICAL HISTORY Procedure Laterality Date ARTHRP ACETBLR/PROX FEM PROSTC AGRFT/ALGRFT CABG (2) VEIN GRAFTS & ARTERIAL GRAFT(S PAST SURGICAL HISTORY OF 07/24/2018 removal of hardware, left thr radiation for prostate cancer TREAT HIP FRACTURE(S) Left 11/2017 hip screw placed [facility] PMH, Social history, family history and [...] -Ambulation oximetry testing Raina Huynh MD [facility] documented in this encounter [facility] 03-05-2024 Note HNO ID: [id number] Author: RAINA HUYNH MD Service: ? Author Type: Physician Type: Progress Notes Filed: 03/05/2024 16:00 Note Text: . [facility] [place] Note Patient name: Arturo Pedersen PCP: Paddy Zaidi MD Referring Physician: Hever Martínez CNP Consultation requested by Hever Martínez for an opinion regarding COPD. My final recommendations will be communicated back to the requesting physician by way of shared Medical record or letter to requesting physician via [place] mail. CC: COPD HPI: Arturo Pedersen 83 year old male former 44-fixq-hqtg smoker quitting in 1992 with PMH significant for obesity, coronary artery disease s/p CABG and stent, previous stroke, GERD, HLD, prostate cancer s/p radiation, HTN, PAF on AC, central sleep apnea not wearing PAP, chronic hypoxemic respiratory failure being sent for evaluation of COPD. Recently hospitalized at [facility] for pneumonia. CT of the chest [...] recurrent bronchitis. DME: [employer] DATA: PFT: PFT [facility] 10/23/2018; FVC 2.41 L 57% FEV1 1.62 L 54% FEV1/FVC 67% No improvement post-bronchodilator TLC 5.01 L 76% RV 2.60 L 94% RV/TLC 52% DLCO 15.2 73% Imaging / Diagnostic Studies: [facility] MR#: [id number] Acct: [id number] Name: ARTURO PEDERSEN Rep #: [id number] : 1940 83 From: Shayne Holt MD [...] the tongue every 5 minutes as needed. gvrsrtjqyv-znfjumix-tdxvgzvmhc (BREZTRI AEROSPHERE) 160-9-4.8 mcg/actuation HFA aerosol inhaler [...] mouth every morning. (more content not included)... [facility] 03-05-2024 Note HNO ID: [id number] Author: SHELLY SIMS RPFT Service: ? Author Type: Respiratory Therapist Type: Progress Notes Filed: 03/05/2024 15:09 Note Text: PULM FUNCTION: Provider: Raina Huynh MD Assisting Tech: Shelly Sims RPFT Spirometry w/BD: 1 DLCO: 1 [facility] 03-05-2024 History of Present illness Narrative PULM FUNCTION: Provider: Raina Huynh MD Assisting Tech: Shelly Sims RPFT Spirometry w/BD: 1 DLCO: 1 documented in this encounter [facility] 02-16-2024 Telephone encounter Note Patients son aware that medication was sent to [facility] in [place]. Son stated he understood that blood work needed drawn in 1 week in [place]. [facility] 02-16-2024 Miscellaneous Notes Patients son aware that medication was sent to [facility] in [place]. Son stated he understood that blood work needed drawn in 1 week in [place]. Will try warfarin. Start with 2.5 mg [...] for 1x per week, standing order for [facility] [facility]. Once he's on a steady dose [...] of symptoms: N/A Hui Call patient at: [phone] (home) [phone] (cell) Was an appointment scheduled: No Closing statement: Corrina Riggins documented in this encounter [facility] 02-16-2024 Telephone encounter Note Will try [...] 1x per sergio . Paddy Zaidi MD [facility] 02-15-2024 Telephone encounter Note Hui, Caregiver, is calling Paddy Zaidi MD today with concern regarding Medication Problem. Patient Jose is $300 with the copay and he cannot afford this. They are asking for Warfarin or another medication. Patient has been identified by name and birthdate. Duration of symptoms: N/A Hui Call patient at: [phone] (home) [phone] (cell) Was an appointment scheduled: No Closing statement: Corrina Riggnis [facility] Work Phone: 02-14-2024 Telephone encounter Note The following approved medication requests have been transmitted electronically. Requested Prescriptions Signed Prescriptions Disp Refills ELIQUIS 5 mg tab(s) 180 tablet 3 Sig: Take 1 tablet by mouth two times a day. Authorizing Provider: PADDY ZAIDI MD [facility] 02-14-2024 Miscellaneous Notes The following approved medication [...] you. Varsha Byers. documented in this encounter [facility] 02-14-2024 Telephone encounter Note Coty is [...] found Please advise. Thank you. Varsha Byers. [facility] 02-14-2024 Telephone encounter Note 1st attempt to reach for scheduling, left voicemail. Adrian was seen at [facility] today, and Hever referred him to see Pulmonology. He was unable to stay for scheduling but he and his caregiver said they would like to do all the appointments at [place]. Although there are many available times to complete the respiratory tests required for new pulmonology appointments on the same day, there are not any openings where both the respiratory tests and the pulmonology provider appointment are available the same day soon. Lacie Muñoz [facility] 02-14-2024 Miscellaneous Notes 1st attempt to reach for scheduling, left voicemail. Adrian was seen at [facility] today, and Hever referred him to see Pulmonology. He was unable to stay for scheduling but he and his caregiver said they would like to do all the appointments at [place]. Although there are many available times to complete the respiratory tests required for new pulmonology appointments on the same day, there are not any openings where both the respiratory tests and the pulmonology provider appointment are available the same day soon. Lacie Muñoz documented in this encounter [facility] 02-14-2024 Note HNO ID: [id number] Author: HEVER MARTÍNEZ APRN.OPERATIONS PLANT ATTENDANT Service: ? Author Type: Nurse Practitioner Type: Progress Notes Filed: 02/14/2024 16:39 Note Text: This note was created using Owned it. Subjective Arturo Pedersen is a 83 year old male. Patient here with live source operator. Treated for RLL pneumonia at the ER, [...] of AFIB and CAD, never seen a review coordinator. Uses walker for ambulation, sleeps in the [...] HIP FRACTURE(S) Left 11/2017 hip screw placed [facility] Aspirin, Oxycodone, and Percodan [Oxycodone-Aspirin] [...] type (HCC) Recommend to establish care with team member, continue oxygen. - CONSULT TO PULMONARY MEDICINE 3. Adjustment disorder with mixed anxiety and depressed mood Increase to 40 mg daily. - PARoxetine (PAXIL) 40 mg tablet; Take 1 tablet by mouth once daily. Dispense: 90 tablet; Refill: 1 4. Paroxysmal atrial fibrillation (HCC) Recommend to repeat labs in 1-2 we (more content not included)... [facility] 02-14-2024 History of Present illness Narrative This note was created using Owned it. Subjective Arturo Pedersen is a 83 year old male. Patient here with live source operator. Treated for RLL pneumonia at the ER, [...] of AFIB and CAD, never seen a review coordinator. Uses walker for ambulation, sleeps in the [...] HIP FRACTURE(S) Left 11/2017 hip screw placed [facility] Aspirin, Oxycodone, and Percodan [Oxycodone-Aspirin] [...] type (HCC) Recommend to establish care with team member, continue oxygen. - CONSULT TO PULMONARY MEDICINE [...] HIGH DOSE, TRIVALENT (FLUZONE HIGH-DOSE) Hever Martínez APRN.OPERATIONS PLANT ATTENDANT documented in this encounter [facility] 02-13-2024 Telephone encounter Note Received visit summary for [facility]. Placed in provider's inbox for review. Route to [place] scanning [facility] 02-13-2024 Miscellaneous Notes Received visit summary for [facility]B [facility]. Placed in provider's inbox for review. Route to [place] scanning documented in this encounter [facility] 01-02-2024 Telephone encounter Note The following approved medication requests have been transmitted electronically. Requested Prescriptions Signed Prescriptions Disp Refills PARoxetine (PAXIL) 20 mg tablet 30 tablet 5 Sig: Take 1 tablet by mouth once daily. Authorizing Provider: PADDY ZAIDI MD [facility] 01-02-2024 Miscellaneous Notes The following approved [...] 2023 10:38 AM documented in this encounter [facility] 12-30-2023 Telephone encounter Note Prescription Refill [...] Chayito Thorne December 30, 2023 10:38 AM [facility] 12-21-2023 Telephone encounter Note Received annual oxygen rx from [facility]. Placed in provider's inbox for review. Route to [place] fax [facility] 12-21-2023 Miscellaneous Notes Received annual oxygen rx from [facility]. Placed in provider's inbox for review. Route to [place] fax documented in this encounter [facility] 12-01-2023 Telephone encounter Note The following approved medication requests have been transmitted electronically. Requested Prescriptions Signed Prescriptions Disp Refills PARoxetine (PAXIL) 20 mg tablet 30 tablet 5 Sig: Take 1 tablet by mouth once daily. Authorizing Provider: PADDY ZAIDI MD [facility] 12-01-2023 Miscellaneous Notes The following approved [...] you. Varsha Byers. documented in this encounter [facility] 12-01-2023 Telephone encounter Note Patient is [...] found Please advise. Thank you. Varsha Byers. [facility] 11-29-2023 Telephone encounter Note Prescription Refill [...] Ann LPN November 29, 2023 2:13 PM [facility] 11-29-2023 Miscellaneous Notes Prescription Refill Information [...] 2023 2:13 PM documented in this encounter [facility] 09-02-2023 History of Present illness Narrative [facility] NURSE - CHART REVIEW Provider [facility] Action 09/22/2022 presented [facility] ED following mechanical fall in home. Documentation of encounter indicates no loss of consciousness, not on blood thinning medication. Xray revealed fracture of distal right fibula Pt identified by name and . Reason for Review: Payor request Patient Attributed To: QAE Payer: KEILA Chart Review For: Utilization: ED Total Patient High CostTotal Patient High Cost {HIGH COST:567901) Quality measure review Payor request for assistance Action Taken: No action needed Sarah Robison RN September 02, 2023 11:40 AM documented in this encounter [facility] 08-25-2023 Note HNO ID: [id number] Author: CORRINA COLLAZO, ? Service: ? Author Type: ? Type: Progress Notes Filed: 08/25/2023 15:59 Note Text: [facility] POPULATION HEALTH NAVIGATION OUTREACH Action/FYI Patient needs scheduled for AMW. [facility] 03-15-2023 missed Patient Identified by Name and : Yes, via phone Reason for Outreach Care Gap or Scheduling Wellness Visits Care Gap Reviewed:: Annual Wellness visit [facility] Outreach Outcome/Action Unable to reach patient: Left message Population Health Navigation Workflow Chart Review Payer: [employer] Navigation Signature: Corrina Collazo August 25, 2023 3:58 PM [facility] 08-25-2023 History of Present illness Narrative [facility] POPULATION HEALTH NAVIGATION OUTREACH Action/FYI Patient needs scheduled for AMW. [facility] 03-15-2023 missed Patient Identified by Name and : Yes, via phone Reason for Outreach Care Gap or Scheduling Wellness Visits Care Gap Reviewed:: Annual Wellness visit [facility] Outreach Outcome/Action Unable to reach patient: Left message Population Health Navigation Workflow Chart Review Payer: Keila Navigation Signature: Corrina Collazo August 25, 2023 3:58 PM documented in this encounter [facility] 08-25-2023 Note Patient Outreach (AG AC) ARTURO PEDERSEN ([id number]) 1940 M Date Time Provider Department 08/25/23 CORRINA COLLAZO [facility] During your visit today, we recorded the following information about you: Corrina Collazo 08/25/2023 3:59 PM Signed [facility] POPULATION HEALTH NAVIGATION OUTREACH Action/FYI Patient needs scheduled for AMW. [facility] 03-15-2023 missed Patient Identified by Name and : Yes, via phone Reason for Outreach Care Gap or Scheduling Wellness Visits Care Gap Reviewed:: Annual Wellness visit [facility] Outreach Outcome/Action Unable to reach patient: Left [...] Anxiety [F41.9] 12/23/2021 Atherosclerotic heart disease of eyak coronar*10/19/2017 Cerebrovascular accident (CVA) (HCC) [I63.9] 12/23/2021 [...] Encounter Status:Closed by CORRINA COLLAZO on 08/25/23 [facility] 08-03-2023 History of Present illness Narrative [...] 2023 1:42 PM documented in this encounter [facility] 07-11-2023 Telephone encounter Note Adrian is calling Paddy Zaidi MD today with concern regarding Medication Request Disp Refills Start End potassium chloride (K-TAB) 10 mEq tablet 180 tablet 3 05/21/2022 08/19/2022 Sig: Take 2 tablets by mouth every morning. Sent to pharmacy as: potassium chloride (K-TAB) 10 mEq tablet Class: Normal [facility] [place]. No need to call patient if sent to pharmacy. Thank you. Patient has been identified by name and birthdate. Duration of symptoms: N/A Person calling: self Call patient at: on cell [phone] (home) [phone] (cell) Was an appointment scheduled: No Closing statement: Results or non-symptom based questions: Thank you for calling [facility], your call will be returned within the next business day. Isabell Riggins [facility] 07-11-2023 Miscellaneous Notes Adrian is calling Paddy Zaidi MD today with concern regarding Medication Request Disp Refills Start End potassium chloride (K-TAB) 10 mEq tablet 180 tablet 3 05/21/2022 08/19/2022 Sig: Take 2 tablets by mouth every morning. Sent to pharmacy as: potassium chloride (K-TAB) 10 mEq tablet Class: Normal [facility] [place]. No need to call patient if sent to pharmacy. Thank you. Patient has been identified by name and birthdate. Duration of symptoms: N/A Person calling: self Call patient at: on cell [phone] (home) [phone] (cell) Was an appointment scheduled: No Closing statement: Results or non-symptom based questions: Thank you for calling [facility], your call will be returned within the next business day. Isabell Riggins documented in this encounter [facility] 07-11-2023 Telephone encounter Note Patient has [...] found Please advise. Thank you. Isabell Riggins. [facility] 07-11-2023 Miscellaneous Notes Patient has been [...] you. Isabell Riggins. documented in this encounter [facility] 06-13-2023 Telephone encounter Note Called and notified pt. Pt indicated understanding. [facility] 06-13-2023 Miscellaneous Notes Called and notified [...] Paddy Zaidi MD documented in this encounter [facility] 06-13-2023 Telephone encounter Note Kidney, liver [...] Blood count is normal. Paddy Zaidi MD [facility] 06-07-2023 History of Present illness Narrative [...] 07, 2023 4:35 PM Provider Attestation: Paddy Looc MD, personally performed the services described in [...] 2023 9:45 AM documented in this encounter [facility] 06-03-2023 Telephone encounter Note Called patient. [...] limit his ability to leave home. Called [facility] at [phone]. Patient currently has the full size home [...] would just need an order faxed over. [facility] 06-03-2023 Miscellaneous Notes Called patient. He has [...] limit his ability to leave home. Called [facility] at [phone]. Patient currently has the full size home [...] Patient aware RX will be sent to [facility] pharmacy. No need to notify patient. Varsha Byers documented in this encounter [facility] 05-30-2023 Telephone encounter Note LM for patient to have fasting labs drawn. Patient has medicare wellness appt 06/23/2023 [facility] 05-27-2023 Telephone encounter Note Overdue for [...] For neuropathy Authorizing Provider: PADDY ZAIDI MD [facility] 05-27-2023 Telephone encounter Note Pharmacy verified [...] 06/02/2022 134/68 Please advise. Talia Ann LPN [facility] 05-27-2023 Telephone encounter Note Please also [...] Patient aware RX will be sent to [facility] pharmacy. No need to notify patient. Varsha Byers [facility] 04-15-2023 History of Present illness Narrative POPULATION HEALTH NAVIGATION OUTREACH [facility] Discuss/Due for: Medicare Wellness, MyChart Activation [...] labs: Medicare Annual Wellness Visit 06/23/[address] [facility] with PADDY ZAIDI - MEDICARE WELLNESS Z00.00, HCC GAP CLOSURE HCC related Navigation Signature: Corrina Barakat MA April 15, 2023 11:52 AM documented in this encounter [facility] 04-08-2023 Miscellaneous Notes The following approved [...] Gabrielle Rosenthal MA documented in this encounter [facility] 03-18-2023 Miscellaneous Notes Received visit summary, labs, imaging, EKG for SOB from [facility]. Placed in provider's inbox for review. Route to [place] scanning. 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 Call [facility] ([phone]) or report to the closest Emergency Room. Call 911 if necessary. 03/15/23 1559 <Electronically signed by Parker Metzger MD> Cosigner Signature (if applicable): CC: Dr. Shayne Zaidi MD ~ Signed [facility] Work Phone: 1(644) 906-186511-21-2023 Miscellaneous Notes* Telephone Encounter - Ge Will - 12/28/2022 1:00 PM EST Order signed by PCP and faxed. * Telephone Encounter - Ge Will - 12/28/2022 8:14 AM EST Received annual oxygen prescription order form (renewal date 12/08/21) from [employer]. Placed in provider's inbox for review. Route to [place] fax [phone] documented [facility] Miscellaneous Notes* Telephone Encounter - Ge Will - 09/23/2022 8:10 AM EDT Received ED visit summary and xrays for lower extremity injusry from [facility] ED. Placed in provider's inbox for review. Route to [place] scanning. documented in this encounterProtest[facility]08-14-[facility]23 Hospital Discharge instructions Additional Instructions Closed fracture of ankle. Maintain splint. Usual walker do not put weight on your right lower extremity. Take pain medications as prescribed. Continue to ice and elevate for swelling. Call office of Dr. Pozo for appointment to be seen on Tuesday or Tuesday.[facility] Work Phone: [phone] Miscellaneous Notes* Addendum Note - Talia Ann [...] potassium chloride,spironolactone. Please advise documented in this encounterProtest[facility]05-16-2023 Miscellaneous Notes* Telephone Encounter - Talia Ann LPN - 06/22/2022 9:08 AM EDT LM for patient to call office. * Telephone Encounter - Hever Santiago APRN.CNP - 06/22/2022 8:49 AM EDT Please call patient and remind him to get his repeat chest xray completed in the next week, order placed. Hever Santiago APRN.CNP documented in this encounterPro[facility]04-26-[facility]23 History of Present illness Narrative* Hever [...] HIP FRACTURE(S) Left 11/2017 hip screw placed [facility] ALL[facility] Aspirin, Oxycodone, and Percodan [Oxycodone-Aspirin] [...] depression/anxiety. Hever Santiago APRN.CNP documented in this encounterProtest[facility]04-19-2023 Miscellaneous Notes* Telephone Encounter - Violetta Humphrey RN - 05/26/2022 1:28 PM EDT Notified patient-he agrees to plan. Scheduled f/u. Patient verbalizes understanding and has no other questions or concerns at this time. Violetta Humhprey RN Reason for Disposition Health Information question, no triage required and triager able to answer question Protocols used: Information Only Call - No [id number] * Telephone Encounter - Magdy Gloria RN [...] doing. Hever Santiago APRN.SHANNAN documented in this encounterProtestant [facility]acon[facility]04-15-2023 History of Present illness Narrative* Rocky [...] 22, 2022 11:25 AM documented in this encounterProtestant [facility]acon[facility]04-14-2023 History of Present illness Narrative* Paddy [...] walking out to car after eating at [employer], , Pt feels like he will pass out. - Pt nephew notes he experiences similar episodes when getting out of the car after going to [facility] - Pt checks his blood pressure at home and records good numbers - Pt nephew notes Pt has trouble walking; he has coughing spells - Pt uses two pillows to lay in bed. Cardiac Cath Intervention on 12-16-2021 Cardiac Cath Intervention [facility] [address] [place] [id number] Cardiac Cath Intervention MR#: [id number] Acct: [id number] Name: ARTURO PEDERSEN Rep #: [id number] : 1940 81 From: Dallas Muller MD PCP: Dr. Shayne Zaidi MD Status:ADM IN Patient Name: ARTURO PEDERSEN Study Date: 12/16/2021 Performing: Tiago Burden MD Ht: 71 inches 180.34 cm : 1940 Wt: 194.29 lbs 88.13 kg Age: 81 Gender: male BSA: 2.08 PROCEDURE(S) PERFORMED IC12-(32760/C9600)KIRK W/WO PTCA, SINGLE CORONARY ARTERY CLINICAL PROFILE [...] XB3.5 100cm Guide Catheter Grey .014 [employer] [place] Straight 190cm [employer] EMERGE MR 3.00x08 BALLOON [employer] Synergy MR KIRK 3.50x08 Medtronic NC EUPHORA RX 3.5x08 BALLOON COPD/ JONATHAN? 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 Refill(s) requested: Requested Prescriptions Pending Prescriptions [...] Order(s) pended. Please advise. Hever Franklin Ma, FAMILY MANAGER * Telephone Encounter - Lacie Muñoz - 05/14/2022 3:24 PM EDT Adrian came by and needs refills of all of his medications sent to [facility] pharmacy in [place]. Can someone assist him with his RX refills? He is totally out of gabapentin but also requesting atorvastatin, spironolactone, escitalopram oxalate, atenolol, levothyroxine, potassium chloride. I have scheduled Adrian for a routine check up since he has not been seen since last fall. 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 Could someone advise Adrian when and if RX refills havebeen sent? Thank you, Lacie Muñoz documented in this encounterProtestant [facility]acon[facility] Hospital11-21-2022 Miscellaneous Notes* Telephone Encounter - Ge Will - 12/28/2021 2:02 PM EST Received visit summary for sleep apnea and COPD from [facility]. Placed in provider's inbox for review. Route to [place] scanning. documented in this encounterProtestant Deaconess Hospital11-18-2022 Miscellaneous Notes* Telephone Encounter - Talia Ann LPN - 12/25/2021 11:42 AM EST Received 12/25/2021 from [facility]. Placed in provider's inbox for review. 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 Placed in provider's inbox for review. Route to [place] scanning. documented in this encounterProtestant Deaconess Hospital11-14-2022 Miscellaneous Notes* Telephone Encounter - Talia Ann LPN - 12/21/2021 11:00 AM EST Received 12/18/2021 from [facility]. Placed in provider's inbox for review. Route to [place] for scanning. documented in this [facility]11-14-2022 Miscellaneous Notes* Telephone Encounter - Talia Ann LPN - 12/21/2021 10:57 AM EST Received 12/21/2021 from [facility]. Placed in provider's inbox for review. Route to [place] for scanning documented in this encounterProtestant [facility]acon[facility] Hospital11-10-2022 Miscellaneous Notes* Telephone Encounter - Ge Confer - 12/17/2021 3:17 PM EST Received liver us for elevated lft's from [facility]. Placed in provider's inbox for review. Route to [place] scanning. documented in this encounterProtestant [facility]aconess Hospital11-09-2022 Miscellaneous Notes* Telephone Encounter - Ge Confer - 12/16/2021 3:08 PM EST Received cardiac cath intervention/diagnostic procedure note and EKG's 12/14, 12/15, 12/16 from [facility]. Placed in provider's inbox for review. Route to MA scanning. documented in this encounterPro[facility]22 Miscellaneous Notes* Telephone Encounter - Ge Confer - 12/15/2021 8:54 AM EST Received ED summary, labs, imaging for SOB and chest pain from [facility]. Placed in provider's inbox for review. Route to MA scanning. documented in this encounterProtest[facility]10-10-2022 Miscellaneous Notes* Telephone Encounter - Paddy [...] 11/16/2021 10:28 AM EDT Pharmacy verified in [facility] Patient has been identified by name [...] advise. Talia Ann LPN documented in this encounterProtestant [facility]08-09-2022 Miscellaneous Notes* Telephone Encounter - Jessi [...] recheck. Hever Santiago APRN.CNP documented in this encounterProtestant [facility]acon[facility]08-04-2022 Miscellaneous Notes* Telephone Encounter - Ge [...] 06/22/21 Next appointment: n/a Pharmacy verified in [facility]. Refill(s) requested: Pending Prescriptions Disp Refills [...] Timothy Maradiaga Ma, CMA documented in this encounterProtestant [facility]acon[facility]05-16-2022 History of Present illness Narrative* Hever [...] 1 Hever Santiago APRN.CNP documented in this encounterProtestant [facility]acon[facility]05-04-2022 Miscellaneous Notes* Telephone Encounter - Jessi Sotelo - 06/10/2021 5:20 PM EDT Called patient and got appointment scheduled * Telephone Encounter - Hever Santiago APRN.CNP - 06/10/2021 10:27 AM EDT Patient is due for a 6 month chronic care visit, please schedule with either provider. Hever Santiago APRN.CNP * Telephone Encounter - Corrina Riggins - 06/09/2021 3:55 PM EDT Pharmacy verified in [facility] Patient has been identified by name [...] advise. Corrina Preciado Pss documented in this encounterProtestant Deacon[facility] Hospital04-14-2022 Miscellaneous Notes* Telephone Encounter - Paddy [...] 12-17-20 Next appointment: na Pharmacy verified in [facility]. Refill(s) requested: Pending Prescriptions Disp Refills ESCITALOPRAM 20 MG TABLET 30 tablet 0 Sig: Take 1 tablet by mouth once daily KARLA: Yes Order(s) pended. Please advise. Haily Avila MA, [facility] documented in [facility] encounterTr[facility]* Diagnosis Essential hypertension Unspecified essential hypertension Hypokalemia Hypopotassemia documented [facility]* Diagnosis Essential hypertension- Primary Unspecified essential hypertension Pure hypercholesterolemia Acquired hypothyroidism Unspecified hypothyroidism Adjustment disorder with mixed anxiety and depressed mood Peripheral polyneuropathy Unspecified hereditary and idiopathic peripheral neuropathy documented [facility]* Diagnosis Essential hypertension Unspecified essential hypertension Hypokalemia Hypopotassemia documented [facility]* Diagnosis Peripheral polyneuropathy Unspecified hereditary and idiopathic peripheral neuropathy documented [facility]* Diagnosis Onset Date Resolution Status Non-STEMI (non-ST elevated myocardial infarction) acute Paroxysmal atrial fibrillation with RVR acute Pneumococcal pneumonia acute Acute exacerbation of COPD with asthma [facility] Work Phone: Evaluation note* Diagnosis Onset Date Resolution Status Non-STEMI (non-ST elevated myocardial infarction) acute Paroxysmal atrial fibrillation with RVR acute Pneumococcal pneumonia acute Acute exacerbation of COPD with asthma chronic HTN (hypertension) [facility] Work Phone: Evaluation note* Diagnosis COPD with exacerbation (HCC)- Primary Obstructive chronic bronchitis with exacerbation Hypertensive urgency Unspecified essential hypertension 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) S/P angioplasty with stent Other postprocedural status 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) Pneumonia of left upper lobe due to infectious organism Essential hypertension Unspecified essential hypertension Obstructive sleep apnea on CPAP Obstructive sleep apnea (adult) (pediatric) Hospital discharge follow-up Other follow-up examination documented [facility] encounter [facility]* Diagnosis Onset Date Resolution Status Non-STEMI (non-ST elevated myocardial infarction) acute Paroxysmal atrial fibrillation with RVR acute Acute exacerbation of COPD with asthma chronic HTN (hypertension) chronic 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 [facility] Work Phone: Evaluation note* Diagnosis Medication management Encounter for long-term (current) use of other medications Acquired hypothyroidism Unspecified hypothyroidism documented [facility] encounter [facility]* Diagnosis Mixed hyperlipidemia Peripheral polyneuropathy Unspecified hereditary and idiopathic peripheral neuropathy Essential hypertension Unspecified essential hypertension Hypothyroidism, unspecified type Hypokalemia Hypopotassemia documented [facility] this encounter [facility]* Diagnosis 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)- Primary Essential hypertension Unspecified essential hypertension Hypokalemia Hypopotassemia Peripheral polyneuropathy Unspecified hereditary and idiopathic peripheral neuropathy Acquired hypothyroidism Unspecified hypothyroidism Anxiety Anxiety state, unspecified Paroxysmal atrial fibrillation (HCC) Atrial fibrillation SOB (shortness of breath) Shortness of breath Mixed hyperlipidemia Hypothyroidism, unspecified type Chronic obstructive pulmonary disease, unspecified COPD type (HCC) documented [facility] this encounter [facility]* Diagnosis Pneumonia of right middle lobe due to infectious organism- Primary [facility]* Diagnosis Pneumonia of right middle lobe due to infectious organism- Primary ED (erectile dysfunction) of organic origin Impotence of organic origin Adjustment disorder with mixed anxiety and depressed mood documented [facility] this encounter [facility]* Diagnosis Hypothyroidism, unspecified type Mixed hyperlipidemia documented in this encounter [facility] HospitalEvaluation noteNo assessment information availableWAvita Health System Work Phone: Evaluation note* Diagnosis Hypothyroidism, unspecified type Essential hypertension Unspecified essential hypertension Mixed hyperlipidemia Peripheral polyneuropathy Unspecified hereditary and idiopathic peripheral neuropathy documented in this encounter [facility] note* Diagnosis 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 Hypothyroidism, unspecified type Essential hypertension Unspecified essential hypertension Mixed hyperlipidemia Peripheral polyneuropathy Unspecified hereditary and idiopathic peripheral neuropathy SOB (shortness of breath) Shortness of breath Hypoxemia documented in this encounter [facility] note* Diagnosis Essential hypertension Unspecified essential hypertension Hypothyroidism, unspecified type documented in this encounter [facility] note* Diagnosis Hypokalemia Hypopotassemia documented in this encounter [facility] note* Diagnosis 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) Paroxysmal atrial fibrillation (HCC) Atrial fibrillation SOB (shortness of breath) Shortness of breath documented in this encounter [facility] note* Diagnosis Pneumonia of right lower lobe due to infectious organism- Primary Chronic obstructive pulmonary disease, unspecified COPD type (HCC) Adjustment disorder with mixed anxiety and depressed mood Paroxysmal atrial fibrillation (HCC) Atrial fibrillation Encounter for immunization Need for other specified prophylactic vaccination against single bacterial disease documented in this encounter [facility] note* Diagnosis Chronic atrial fibrillation (HCC)- Primary 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 Long-term (current) use of anticoagulants documented in this encounter [facility] note* Diagnosis Chronic obstructive pulmonary disease, unspecified COPD type (HCC) documented in this encounter [facility] note* Diagnosis Chronic obstructive pulmonary disease, unspecified COPD type (HCC) documented in this encounter [facility] note* Diagnosis Chronic obstructive pulmonary disease, unspecified COPD type (HCC) Chronic obstructive pulmonary disease, unspecified COPD type (HCC) Stage 3 severe COPD by GOLD classification ([facility])- Primary Pneumonia of left lower lobe due to infectious organism Lung nodules Other nonspecific abnormal finding of lung field Former smoker Personal history of tobacco use, presenting hazards to health Chronic hypoxemic respiratory failure ([facility]) Chronic respiratory failure documented in this encounter [facility] note* Diagnosis Chronic obstructive pulmonary disease, unspecified COPD type (HCC)- Primary documented in this encounter [facility] note* Diagnosis Stage 3 severe COPD by GOLD classification ([facility])- Primary Hypoxia Hypoxemia Pneumonia of left lower lobe due to infectious organism Lung nodules Other nonspecific abnormal finding of lung field documented in this encounter [facility]* Diagnosis Pneumonia of left lower lobe due to infectious organism Lung nodules Other nonspecific abnormal finding of lung field documented [facility] encounter [facility]* Diagnosis Mixed hyperlipidemia Essential hypertension Unspecified essential hypertension documented [facility] this encounter [facility]* Diagnosis Hypothyroidism, unspecified type Peripheral polyneuropathy Unspecified hereditary and idiopathic peripheral neuropathy documented in this encounter [facility] note* Diagnosis Oxygen dependent- Primary Dependence on supplemental oxygen Atherosclerotic cardiovascular disease Anxiety attack Panic 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 Leg swelling Swelling of limb Adjustment disorder with mixed anxiety and depressed mood PAD (peripheral artery disease) Peripheral vascular disease, unspecified Acquired hypothyroidism Unspecified hypothyroidism Pure hypercholesterolemia Idiopathic peripheral neuropathy Unspecified hereditary and idiopathic peripheral neuropathy 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 documented in this encounter [facility]* Diagnosis Adjustment disorder with mixed anxiety and depressed mood Hypokalemia Hypopotassemia documented in this encounter [facility] note* Diagnosis Hypokalemia Hypopotassemia documented in this encounter [facility] note* Diagnosis Hypothyroidism, unspecified type documented in this encounter 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 for referral (narrative)* Outpatient Procedure (Routine) - Authorized Specialty Diagnoses / Procedures Referred By Contac t Referred To [facility] Diagnoses Chronic obstructive pulmonary disease, unspecified COPD type (HCC) Procedures OXIMETRY WITH AMBULATION NONINVASIVE EAR/PULSE OXIMETRY MULTIPLE Raina Cruz MD [address] [place] [address] Respiratory [place] [id number] Referral ID Status Reason Start Date Expiration Date Visits Requested Visits Authorized [id number] Authorized Auto-Generat ed Referral 03/05/2024 04/04/2025 1 1 * MRI/CT (Routine) - Authorized Specialty Diagnoses / Procedures Referred By Contac t Referred To Contact CT IMAGING Diagnoses Pneumonia of left lower lobe due to infectious organism Lung nodules Procedures CT CHEST WO IVCON DIAGNOSTIC COMPUTED TOMOGRAPHY THORAX W/O CNTRST Raina Huynh MD [address] [place] [address] Ct Imaging [id number] Referral ID Status Reason Start Date Expiration Date Visits Requested Visits Authorized [id number] Authorized Auto-Generat ed Referral 03/05/2024 04/04/2025 1 1 * Outpatient Procedure (Routine) - Closed Specialty Diagnoses / Procedures Referred By Contac t Referred To Contact [facility] Diagnoses Chronic obstructive pulmonary disease, unspecified COPD type (HCC) Procedures LUNG DIFFUSION CAPACITY (DLCO) DIFFUSING CAPACITY Raina Huynh MD [address] [place] [address] [facility] [address] [place] [address] Referral ID Status Reason Start Date Expiration Date V isits Requested Visits Authorized [id number] Closed Auto-Generate d Referral 03/05/2024 04/04/2025 1 1 * Outpatient Procedure (Routine) - Closed Specialty Diagnoses / Procedures Referred By Contac t Referred To Contact [facility] Diagnoses Chronic obstructive pulmonary disease, unspecified COPD type (HCC) Procedures SPIROMETRY WITH DILATOR IF OBSTRUCTED BRNCDILAT RSPSE SPMTRY PRE&POST-BRNCDILAT ADMRaina Farooq MD [address] [facility] [place] [address] [facility] [address] [place] [address] Referral ID Status Reason Start Date Expiration Date V isits Requested Visits Authorized [id number] Closed Auto-Generate d Referral 03/05/2024 04/04/2025 1 1 [facility] Summary Purpose Family History Relationship Condition [...] Will No December 14 5:17pm 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 No December 14, 2021 5:17pm Advance Directive Response Recorded Date/ Time Living Will No September 22 7:03pm 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 Yes September 22 7:03pm Name of Medical 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 GILA PEDERSEN September 22, 2022 7:03pm Advance Directive Response Recorded Date/ Time Living Will No March 15 2:08pm 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 Yes March 15, 2023 2:08pm Name of Medical 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 Gila March 15, 2023 2:08pm Chief Complaint [...] fibrillation (HCC) Procedures CONSULT TO CARDIOLOGY OFFICE/OUTPATIENT [facility] 60 MINUTES Hever Martínez, SENIOR HRIS ANALYST.OPERATIONS PLANT ATTENDANT [address] [place] [address] Referral ID Status Reason Start Date Expiration Date Visits Requested Visits Authorized [id number] Authorized PCP Requested Referral 02/14/2024 02/13/2025 1 1 Additional Source Comments (unrecognized sect ion and content) No Status Records FoundNo Status Records FoundNo Status Records FoundNo Status Records Found INFORMATION SOURCE (unrecogn ized section and content) DATE CREATED AUTHOR 06/30/2018 [facility] DATE CREATED AUTHOR AUTHOR'S ORGANIZ ATION 08/29/2023 [facility] DATE CREATED AUTHOR AUTHOR'S ORGANIZ ATION 03/03/2024 [facility] DATE CREATED AUTHOR AUTHOR'S ORGANIZ ATION 09/08/2024 [facility] Source Comments (unrecognize d section and content) In the event this informatio n is protected by the Federal Confidentiality of Alcohol and Drug Abuse Patient Records regulations: The Federal rules restrict any use of the information to criminally investigate or prosecute any alcohol or drug abuse patient.[facility] HospitalIn the event this information is protected by the Federal Confidentiality of Alcohol and Drug Abuse Patient Records regulations: The Federal rules restrict any use of the information to criminally investigate or prosecute any alcohol or drug abuse patient.[facility] HospitalIn the event this information is protected by the Federal Confidentiality of Alcohol and Drug Abuse Patient Records regulations: The Federal rules restrict any use of the information to criminally investigate or prosecute any alcohol or drug abuse patient.[facility] HospitalIn the event this information is protected by the Federal Confidentiality of Alcohol and Drug Abuse Patient Records regulations: The Federal rules restrict any use of the information to criminally investigate or prosecute any alcohol or drug abuse patient.[facility] HospitalIn the event this information is protected by the Federal Confidentiality of Alcohol and Drug Abuse Patient Records regulations: The Federal rules restrict any use of the information to criminally investigate or prosecute any alcohol or drug abuse patient.[facility] HospitalIn the event this information is protected by the Federal Confidentiality of Alcohol and Drug Abuse Patient Records regulations: The Federal rules restrict any use of the information to criminally investigate or prosecute any alcohol or drug abuse patient.[facility] HospitalIn the event this information is protected by the Federal Confidentiality of Alcohol and Drug Abuse Patient Records regulations: The Federal rules restrict any use of the information to criminally investigate or prosecute any alcohol or drug abuse patient.[facility] HospitalIn the event this information is protected by the Federal Confidentiality of Alcohol and Drug Abuse Patient Records regulations: The Federal rules restrict any use of the information to criminally investigate or prosecute any alcohol or drug abuse patient.[facility] HospitalIn the event this information is protected by the Federal Confidentiality of Alcohol and Drug Abuse Patient Records regulations: The Federal rules restrict any use of the information to criminally investigate or prosecute any alcohol or drug abuse patient.[facility] HospitalIn the event this information is protected by the Federal Confidentiality of Alcohol and Drug Abuse Patient Records regulations: The Federal rules restrict any use of the information to criminally investigate or prosecute any alcohol or drug abuse patient.[facility] HospitalIn the event this information is protected by the Federal Confidentiality of Alcohol and Drug Abuse Patient Records regulations: The Federal rules restrict any use of the information to criminally investigate or prosecute any alcohol or drug abuse patient.[facility] HospitalIn the event this information is protected by the Federal Confidentiality of Alcohol and Drug Abuse Patient Records regulations: The Federal rules restrict any use of the information to criminally investigate or prosecute any alcohol or drug abuse patient.[facility] HospitalIn the event this information is protected by the Federal Confidentiality of Alcohol and Drug Abuse Patient Records regulations: The Federal rules restrict any use of the information to criminally investigate or prosecute any alcohol or drug abuse patient.[facility] HospitalIn the event this information is protected by the Federal Confidentiality of Alcohol and Drug Abuse Patient Records regulations: The Federal rules restrict any use of the information to criminally investigate or prosecute any alcohol or drug abuse patient.[facility] HospitalIn the event this information is protected by the Federal Confidentiality of Alcohol and Drug Abuse Patient Records regulations: The Federal rules restrict any use of the information to criminally investigate or prosecute any alcohol or drug abuse patient.[facility] HospitalIn the event this information is protected by the Federal Confidentiality of Alcohol and Drug Abuse Patient Records regulations: The Federal rules restrict any use of the information to criminally investigate or prosecute any alcohol or drug abuse patient.[facility] HospitalIn the event this information is protected by the Federal Confidentiality of Alcohol and Drug Abuse Patient Records regulations: The Federal rules restrict any use of the information to criminally investigate or prosecute any alcohol or drug abuse patient.[facility] HospitalIn the event this information is protected by the Federal Confidentiality of Alcohol and Drug Abuse Patient Records regulations: The Federal rules restrict any use of the information to criminally investigate or prosecute any alcohol or drug abuse patient.[facility] HospitalIn the event this information is protected by the Federal Confidentiality of Alcohol and Drug Abuse Patient Records regulations: The Federal rules restrict any use of the information to criminally investigate or prosecute any alcohol or drug abuse patient.[facility] HospitalIn the event this information is protected by the Federal Confidentiality of Alcohol and Drug Abuse Patient Records regulations: The Federal rules restrict any use of the information to criminally investigate or prosecute any alcohol or drug abuse patient.[facility] HospitalIn the event this information is protected by the Federal Confidentiality of Alcohol and Drug Abuse Patient Records regulations: The Federal rules restrict any use of the information to criminally investigate or prosecute any alcohol or drug abuse patient.[facility] HospitalIn the event this information is protected by the Federal Confidentiality of Alcohol and Drug Abuse Patient Records regulations: The Federal rules restrict any use of the information to criminally investigate or prosecute any alcohol or drug abuse patient.[facility] HospitalIn the event this information is protected by the Federal Confidentiality of Alcohol and Drug Abuse Patient Records regulations: The Federal rules restrict any use of the information to criminally investigate or prosecute any alcohol or drug abuse patient.[facility] HospitalIn the event this information is protected by the Federal Confidentiality of Alcohol and Drug Abuse Patient Records regulations: The Federal rules restrict any use of the information to criminally investigate or prosecute any alcohol or drug abuse patient.[facility] HospitalIn the event this information is protected by the Federal Confidentiality of Alcohol and Drug Abuse Patient Records regulations: The Federal rules restrict any use of the information to criminally investigate or prosecute any alcohol or drug abuse patient.[facility] HospitalIn the event this information is protected by the Federal Confidentiality of Alcohol and Drug Abuse Patient Records regulations: The Federal rules restrict any use of the information to criminally investigate or prosecute any alcohol or drug abuse patient.[facility] HospitalIn the event this information is protected by the Federal Confidentiality of Alcohol and Drug Abuse Patient Records regulations: The Federal rules restrict any use of the information to criminally investigate or prosecute any alcohol or drug abuse patient.[facility] HospitalIn the event this information is protected by the Federal Confidentiality of Alcohol and Drug Abuse Patient Records regulations: The Federal rules restrict any use of the information to criminally investigate or prosecute any alcohol or drug abuse patient.[facility] HospitalIn the event this information is protected by the Federal Confidentiality of Alcohol and Drug Abuse Patient Records regulations: The Federal rules restrict any use of the information to criminally investigate or prosecute any alcohol or drug abuse patient.[facility] HospitalIn the event this information is protected by the Federal Confidentiality of Alcohol and Drug Abuse Patient Records regulations: The Federal rules restrict any use of the information to criminally investigate or prosecute any alcohol or drug abuse patient.[facility] HospitalIn the event this information is protected by the Federal Confidentiality of Alcohol and Drug Abuse Patient Records regulations: The Federal rules restrict any use of the information to criminally investigate or prosecute any alcohol or drug abuse patient.[facility] HospitalIn the event this information is protected by the Federal Confidentiality of Alcohol and Drug Abuse Patient Records regulations: The Federal rules restrict any use of the information to criminally investigate or prosecute any alcohol or drug abuse patient.[facility] HospitalIn the event this information is protected by the Federal Confidentiality of Alcohol and Drug Abuse Patient Records regulations: The Federal rules restrict any use of the information to criminally investigate or prosecute any alcohol or drug abuse patient.[facility] HospitalIn the event this information is protected by the Federal Confidentiality of Alcohol and Drug Abuse Patient Records regulations: The Federal rules restrict any use of the information to criminally investigate or prosecute any alcohol or drug abuse patient.[facility] HospitalIn the event this information is protected by the Federal Confidentiality of Alcohol and Drug Abuse Patient Records regulations: The Federal rules restrict any use of the information to criminally investigate or prosecute any alcohol or drug abuse patient.[facility] HospitalIn the event this information is protected by the Federal Confidentiality of Alcohol and Drug Abuse Patient Records regulations: The Federal rules restrict any use of the information to criminally investigate or prosecute any alcohol or drug abuse patient.[facility] HospitalIn the event this information is protected by the Federal Confidentiality of Alcohol and Drug Abuse Patient Records regulations: The Federal rules restrict any use of the information to criminally investigate or prosecute any alcohol or drug abuse patient.[facility] HospitalIn the event this information is protected by the Federal Confidentiality of Alcohol and Drug Abuse Patient Records regulations: The Federal rules restrict any use of the information to criminally investigate or prosecute any alcohol or drug abuse patient.[facility] HospitalIn the event this information is protected by the Federal Confidentiality of Alcohol and Drug Abuse Patient Records regulations: The Federal rules restrict any use of the information to criminally investigate or prosecute any alcohol or drug abuse patient.[facility] HospitalIn the event this information is protected by the Federal Confidentiality of Alcohol and Drug Abuse Patient Records regulations: The Federal rules restrict any use of the information to criminally investigate or prosecute any alcohol or drug abuse patient.[facility] HospitalIn the event this information is protected by the Federal Confidentiality of Alcohol and Drug Abuse Patient Records regulations: The Federal rules restrict any use of the information to criminally investigate or prosecute any alcohol or drug abuse patient.[facility] HospitalIn the event this information is protected by the Federal Confidentiality of Alcohol and Drug Abuse Patient Records regulations: The Federal rules restrict any use of the information to criminally investigate or prosecute any alcohol or drug abuse patient.[facility] HospitalIn the event this information is protected by the Federal Confidentiality of Alcohol and Drug Abuse Patient Records regulations: The Federal rules restrict any use of the information to criminally investigate or prosecute any alcohol or drug abuse patient.[facility] HospitalIn the event this information is protected by the Federal Confidentiality of Alcohol and Drug Abuse Patient Records regulations: The Federal rules restrict any use of the information to criminally investigate or prosecute any alcohol or drug abuse patient.[facility] HospitalIn the event this information is protected by the Federal Confidentiality of Alcohol and Drug Abuse Patient Records regulations: The Federal rules restrict any use of the information to criminally investigate or prosecute any alcohol or drug abuse patient.[facility] HospitalIn the event this information is protected by the Federal Confidentiality of Alcohol and Drug Abuse Patient Records regulations: The Federal rules restrict any use of the information to criminally investigate or prosecute any alcohol or drug abuse patient.[facility] HospitalIn the event this information is protected by the Federal Confidentiality of Alcohol and Drug Abuse Patient Records regulations: The Federal rules restrict any use of the information to criminally investigate or prosecute any alcohol or drug abuse patient.[facility] HospitalIn the event this information is protected by the Federal Confidentiality of Alcohol and Drug Abuse Patient Records regulations: The Federal rules restrict any use of the information to criminally investigate or prosecute any alcohol or drug abuse patient.[facility] HospitalIn the event this information is protected by the Federal Confidentiality of Alcohol and Drug Abuse Patient Records regulations: The Federal rules restrict any use of the information to criminally investigate or prosecute any alcohol or drug abuse patient.[facility] HospitalIn the event this information is protected by the Federal Confidentiality of Alcohol and Drug Abuse Patient Records regulations: The Federal rules restrict any use of the information to criminally investigate or prosecute any alcohol or drug abuse patient.[facility] HospitalIn the event this information is protected by the Federal Confidentiality of Alcohol and Drug Abuse Patient Records regulations: The Federal rules restrict any use of the information to criminally investigate or prosecute any alcohol or drug abuse patient.[facility] HospitalIn the event this information is protected by the Federal Confidentiality of Alcohol and Drug Abuse Patient Records regulations: The Federal rules restrict any use of the information to criminally investigate or prosecute any alcohol or drug abuse patient.[facility] HospitalIn the event this information is protected by the Federal Confidentiality of Alcohol and Drug Abuse Patient Records regulations: The Federal rules restrict any use of the information to criminally investigate or prosecute any alcohol or drug abuse patient.[facility] HospitalIn the event this information is protected by the Federal Confidentiality of Alcohol and Drug Abuse Patient Records regulations: The Federal rules restrict any use of the information to criminally investigate or prosecute any alcohol or drug abuse patient.[facility] HospitalIn the event this information is protected by the Federal Confidentiality of Alcohol and Drug Abuse Patient Records regulations: The Federal rules restrict any use of the information to criminally investigate or prosecute any alcohol or drug abuse patient.[facility] HospitalIn the event this information is protected by the Federal Confidentiality of Alcohol and Drug Abuse Patient Records regulations: The Federal rules restrict any use of the information to criminally investigate or prosecute any alcohol or drug abuse patient.[facility] HospitalIn the event this information is protected by the Federal Confidentiality of Alcohol and Drug Abuse Patient Records regulations: The Federal rules restrict any use of the information to criminally investigate or prosecute any alcohol or drug abuse patient.[facility] HospitalIn the event this information is protected by the Federal Confidentiality of Alcohol and Drug Abuse Patient Records regulations: The Federal rules restrict any use of the information to criminally investigate or prosecute any alcohol or drug abuse patient.[facility] HospitalIn the event this information is protected by the Federal Confidentiality of Alcohol and Drug Abuse Patient Records regulations: The Federal rules restrict any use of the information to criminally investigate or prosecute any alcohol or drug abuse patient.[facility] HospitalIn the event this information is protected by the Federal Confidentiality of Alcohol and Drug Abuse Patient Records regulations: The Federal rules restrict any use of the information to criminally investigate or prosecute any alcohol or drug abuse patient.[facility] HospitalIn the event this information is protected by the Federal Confidentiality of Alcohol and Drug Abuse Patient Records regulations: The Federal rules restrict any use of the information to criminally investigate or prosecute any alcohol or drug abuse patient.[facility] HospitalIn the event this information is protected by the Federal Confidentiality of Alcohol and Drug Abuse Patient Records regulations: The Federal rules restrict any use of the information to criminally investigate or prosecute any alcohol or drug abuse patient.[facility] HospitalIn the event this information is protected by the Federal Confidentiality of Alcohol and Drug Abuse Patient Records regulations: The Federal rules restrict any use of the information to criminally investigate or prosecute any alcohol or drug abuse patient.[facility] HospitalIn the event this information is protected by the Federal Confidentiality of Alcohol and Drug Abuse Patient Records regulations: The Federal rules restrict any use of the information to criminally investigate or prosecute any alcohol or drug abuse patient.[facility] HospitalIn the event this information is protected by the Federal Confidentiality of Alcohol and Drug Abuse Patient Records regulations: The Federal rules restrict any use of the information to criminally investigate or prosecute any alcohol or drug abuse patient.[facility] HospitalIn the event this information is protected by the Federal Confidentiality of Alcohol and Drug Abuse Patient Records regulations: The Federal rules restrict any use of the information to criminally investigate or prosecute any alcohol or drug abuse patient.[facility] HospitalIn the event this information is protected by the Federal Confidentiality of Alcohol and Drug Abuse Patient Records regulations: The Federal rules restrict any use of the information to criminally investigate or prosecute any alcohol or drug abuse patient.[facility] HospitalIn the event this information is protected by the Federal Confidentiality of Alcohol and Drug Abuse Patient Records regulations: The Federal rules restrict any use of the information to criminally investigate or prosecute any alcohol or drug abuse patient.[facility] HospitalIn the event this information is protected by the Federal Confidentiality of Alcohol and Drug Abuse Patient Records regulations: The Federal rules restrict any use of the information to criminally investigate or prosecute any alcohol or drug abuse patient.[facility] HospitalIn the event this information is protected by the Federal Confidentiality of Alcohol and Drug Abuse Patient Records regulations: The Federal rules restrict any use of the information to criminally investigate or prosecute any alcohol or drug abuse patient.[facility] HospitalIn the event this information is protected by the Federal Confidentiality of Alcohol and Drug Abuse Patient Records regulations: The Federal rules restrict any use of the information to criminally investigate or prosecute any alcohol or drug abuse patient.[facility] HospitalIn the event this information is protected by the Federal Confidentiality of Alcohol and Drug Abuse Patient Records regulations: The Federal rules restrict any use of the information to criminally investigate or prosecute any alcohol or drug abuse patient.[facility] HospitalIn the event this information is protected by the Federal Confidentiality of Alcohol and Drug Abuse Patient Records regulations: The Federal rules restrict any use of the information to criminally investigate or prosecute any alcohol or drug abuse patient.[facility] HospitalIn the event this information is protected by the Federal Confidentiality of Alcohol and Drug Abuse Patient Records regulations: The Federal rules restrict any use of the information to criminally investigate or prosecute any alcohol or drug abuse patient.[facility] Reason for Visit (unrecogniz ed section and content) Reason Comments Refill Request Reason Onset Date Comments Refill Request 06/09/2021 Reason Comments Follow Up Reason Comments Results Reason Comments Received Outside Medical Records [facility] ED Reason Comments Received Outside Medical Records [facility] Car diac Cath Reason Comments Received Outside Medical Records Liver U S [facility] Reason Comments Received Outside Medical Records [facility] chest xray 12/18/2021 Reason Comments Received Outside Medical Records [facility] discharge instructions. 12/18/2021 Reason Comments Erroneous encounter-disregard Reason Comments Received Outside Medical Records EKG [facility] Reason Comments Hospital F/U Reason Comments Received Outside Medical Records [facility] 12 lead EKG 12/16/2021 and 12/17/2021 Reason Comments Received Outside Medical Records Pulmona ry Medicine [facility] Reason Comments Medication Problem Reason Onset Date Comments Population Health Navigation Outreach 04/27/2022 HCC Reason Comments Follow Up Reason Comments Follow Up pneumonia Reason Comments Orders Reason Comments Patient Question Reason Comments Received Outside Medical Records [facility] 09/07 07/30 Reason Comments Orders [employer] annual oxygen prescription renewal Reason Comments Received Outside Medical Records [facility] ED 03/15/23 Reason Onset Date Comments [facility] Navigation Outreach 04/15/2023 [employer] HCCs 2.16.24 [...] Raina Huynh MD [address] [place] [address] [address] Referral ID Status Reason Start Date Expiration Date V isits Requested Visits Authorized [id number] Closed Auto-Generate d Referral 03/05/2024 04/04/2025 1 1 Specialty Diagnoses / Procedures Referred By Contac t Referred To Contact [facility] Diagnoses Chronic obstructive pulmonary disease, unspecified COPD type (HCC) Procedures LUNG DIFFUSION CAPACITY (DLCO) DIFFUSING CAPACITY Raina Huynh MD [address] [place] [address] [address] Referral ID Status Reason Start Date Expiration Date V isits Requested Visits Authorized [id number] Closed Auto-Generate d Referral 03/05/2024 04/04/2025 1 [...] MULTIPLE DETER Raina Huynh MD [address] [place] [address] Phone: tel: fax: Res[facility] [address] [place] [address] Referral ID Status Reason Start Date Expiration Date V isits Requested Visits Authorized [id number] Closed Auto-Generate d Referral 03/05/2024 04/04/2025 1 1 Reason Comments Established Patient COPD follow up Reason Comments Radiology CT Specialty Diagnoses / Procedures Referred By Jovan t Referred To Contact CT IMAGING Diagnoses Pneumonia of left lower lobe due to infectious organism Lung nodules Procedures CT CHEST WO IVCON DIAGNOSTIC COMPUTED TOMOGRAPHY THORAX W/O Raina Yang MD [address] [place] [address] Phone: tel: fax: [place] [phone] Referral ID Status Reason Start Date Expiration Date V isits Requested Visits Authorized [id number] Closed Auto-Generate d Referral 03/05/2024 04/04/2025 1 1 Reason Onset Date Comments Population Health Navigation Outreach 04/26/2024 [employer] High Risk - Attempt 2 Reason Onset Date Comments Population Health Navigation Outreach 06/18/2024 [facility] Reason Comments Follow Up Multiple issues Reason Onset Date Comments Results 06/29/2024 Reason Comments Patient Update Care Teams (unrecognized sec tion and content) Inclusion Teacher Relationship Specialty Start Date End Date Paddy Zaidi MD [address] [place] [address] PCP - General Family Practice 05/27/15 Inclusion Teacher Relationship Specialty Start Date End Date Paddy Zaidi MD [address] [place], [place] [address] PCP - General Family Practice 05/27/15 Inclusion Teacher Relationship Specialty Start Date End Date Paddy Zaidi MD [address] [place] [address] PCP - General Family Practice 05/27/15 Inclusion Teacher Relationship Specialty Start Date End Date Paddy Zaidi MD [facility] [place] [address] PCP - General Family Practice 05/27/15 Inclusion Teacher Relationship Specialty Start Date End Date Paddy Zaidi MD [address] [place] [address] PCP - General Family Practice 05/27/15 Inclusion Teacher Relationship Specialty Start Date End Date Paddy Zaidi MD [address] [place] [address] PCP - General Family Medicine 05/27/15 Inclusion Teacher Relationship Specialty Start Date End Date Paddy Zaidi MD [address] [place] [address], [place] [address] PCP - General Family Medicine 05/27/15 Inclusion Teacher Relationship Specialty Start Date End Date Paddy Zaidi MD [address] [place] [address], [place] [address] PCP - General Family Medicine 05/27/15 Inclusion Teacher Relationship Specialty Start Date End Date Paddy Zaidi MD [address] [place] [address], [place] [address] PCP - General Family Medicine 05/27/15 Inclusion Teacher Relationship Specialty Start Date End Date Paddy Zaidi MD [address] [place] [address], [place] [address] PCP - General Family Medicine 05/27/15 Inclusion Teacher Relationship Specialty Start Date End Date Paddy Zaidi MD [address] [place] [address], [place] [address] PCP - General Family Medicine 05/27/15 Inclusion Teacher Relationship Specialty Start Date End Date Paddy Zaidi MD [address] [place] [address], [place] [address] PCP - General Family Medicine 05/27/15 Inclusion Teacher Relationship Specialty Start Date End Date Paddy Zaidi MD [address] [place] [address] PCP - General Family Medicine 05/27/15 Inclusion Teacher Relationship Specialty Start Date End Date Paddy Zaidi MD [address] [place] [address] PCP - General Family Medicine 05/27/15 Inclusion Teacher Relationship Specialty Start Date End Date Paddy Zaidi MD [address] [place] [address] PCP - General Family Medicine 05/27/15 Inclusion Teacher Relationship Specialty Start Date End Date Paddy Zaidi MD [facility] [place] [address] PCP - General Family Medicine 05/27/15 Inclusion Teacher Relationship Specialty Start Date End Date Paddy Zaidi MD [address] [place] [address] PCP - General Family Medicine 05/27/15 Inclusion Teacher Relationship Specialty Start Date End Date Paddy Zaidi MD [address] [place] [address] PCP - General Family Medicine 05/27/15 Inclusion Teacher Relationship Specialty Start Date End Date Paddy Zaidi MD [address] [place] [address] PCP - General Family Medicine 05/27/15 Inclusion Teacher Relationship Specialty Start Date End Date Paddy Zaidi MD [address] [place] [address] PCP - General Family Medicine 05/27/15 Team Status: Active Member Role Status Dates Dr. Shayne Zaidi MD Family Provider Active Dr. Shayne Zaidi MD Primary Care Provider Active Team Status: Inactive Member Role Status Dates Dr. Shayne Zaidi MD Primary Care Provider Active Dr. Adrian Eddy DO Emergency Provider Active Inclusion Teacher Relationship Specialty Start Date End Date Paddy Zaidi MD [address] [place] [address] PCP - General Family Medicine 05/27/15 Inclusion Teacher Relationship Specialty Start Date End Date Paddy Zaidi MD [address] [place] [address] PCP - General Family Medicine 05/27/15 Team Status: Inactive Member Role Status Dates Dr. Shayne Zaidi MD Primary Care Provider Active Dr. Parker Metzger MD Emergency Provider Active Inclusion Teacher Relationship Specialty Start Date End Date Paddy Zaidi MD [address] [place] [address] PCP - General Family Medicine 05/27/15 Inclusion Teacher Relationship Specialty Start Date End Date Paddy Zaidi MD [address] [place] [address] PCP - General Family Medicine 05/27/15 Inclusion Teacher Relationship Specialty Start Date End Date Paddy Zaidi MD [address] [place] [address] PCP - General Family Medicine 05/27/15 Inclusion Teacher Relationship Specialty Start Date End Date Paddy Zaidi MD [address] [place] [address] PCP - General Family Medicine 05/27/15 Inclusion Teacher Relationship Specialty Start Date End Date Paddy Zaidi MD [address] [place] [address] PCP - General Family Medicine 05/27/15 Inclusion Teacher Relationship Specialty Start Date End Date Paddy Zaidi MD [address] [place] [address] PCP - General Family Medicine 05/27/15 Inclusion Teacher Relationship Specialty Start Date End Date Paddy Zaidi MD [address] [place] [address] PCP - General Family Medicine 05/27/15 Inclusion Teacher Relationship Specialty Start Date End Date Paddy Zaidi MD [address] [place] [address] PCP - General Family Medicine 05/27/15 Hever Martínez APRN.OPERATIONS PLANT ATTENDANT [address] [place], [place] [address] Swing Type Lathe Operator Internal Medicine 01/15/24 Inclusion Teacher Relationship Specialty Start Date End Date Paddy Zaidi MD [address] [place], [place] [address] PCP - General Family Medicine 05/27/15 Hever Martínez, SENIOR HRIS ANALYST.OPERATIONS PLANT ATTENDANT [address] [place], [place] [address] Swing Type Lathe Operator Internal Medicine 01/15/24 Inclusion Teacher Relationship Specialty Start Date End Date Paddy Zaidi MD [address] [place], [place] [address] PCP - General Family Medicine 05/27/15 Hever Martínez, SENIOR HRIS ANALYST.OPERATIONS PLANT ATTENDANT [address] [place] [address] [place] [address] Swing Type Lathe Operator Internal Medicine 01/15/24 Inclusion Teacher Relationship Specialty Start Date End Date Paddy Zaidi MD [address] [place], [place] [address] PCP - General Family Medicine 05/27/15 Hever Martínez, SENIOR HRIS ANALYST.OPERATIONS PLANT ATTENDANT [address] [place], [place] [address] Swing Type Lathe Operator Internal Medicine 01/15/24 Inclusion Teacher Relationship Specialty Start Date End Date Paddy Zaidi MD [address] [place], [place] [address] PCP - General Family Medicine 05/27/15 Hever Martínez, SENIOR HRIS ANALYST.OPERATIONS PLANT ATTENDANT [address] [place], [place] [address] Swing Type Lathe Operator Internal Medicine 01/15/24 Inclusion Teacher Relationship Specialty Start Date End Date Paddy Zaidi MD [address] [place], [place] [id number] PCP - General Family Medicine 05/27/15 Hever Martínez, SENIOR HRIS ANALYST.OPERATIONS PLANT ATTENDANT [address] [place], [place] [id number] Swing Type Lathe Operator Internal Medicine 01/15/24 Inclusion Teacher Relationship Specialty Start Date End Date Paddy Zaidi MD [address] [place], [place] [address] PCP - General Family Medicine 05/27/15 Hever Martínez, SENIOR HRIS ANALYST.OPERATIONS PLANT ATTENDANT [address] [place] [id number] Swing Type Lathe Operator Internal Medicine 01/15/24 Inclusion Teacher Relationship Specialty Start Date End Date Paddy Zaidi MD [address] [place], [place] [id number] PCP - General Family Medicine 05/27/15 Hever Martínez APRN.OPERATIONS PLANT ATTENDANT [address] [place], [place] [id number] Swing Type Lathe Operator Internal Medicine 01/15/24 Inclusion Teacher Relationship Specialty Start Date End Date Paddy Zaidi MD [address] [place], [place] [id number] PCP - General Family Medicine 05/27/15 Hever Martínez SENIOR HRIS ANALYST.OPERATIONS PLANT ATTENDANT [address] [place], [place] [id number] Swing Type Lathe Operator Internal Medicine 01/15/24 Inclusion Teacher Relationship Specialty Start Date End Date Paddy Zaidi MD [address] [place], [place] [id number] PCP - General Family Medicine 05/27/15 Hever Martínez, SENIOR HRIS ANALYST.OPERATIONS PLANT ATTENDANT [address] [place], [place] [address] Swing Type Lathe Operator Internal Medicine 01/15/24 Inclusion Teacher Relationship Specialty Start Date End Date Paddy Zaidi MD [address] [place], [place] [address] PCP - General Family Medicine 05/27/15 Hever Martínez, SENIOR HRIS ANALYST.OPERATIONS PLANT ATTENDANT [address] [place], [place] [id number] Swing Type Lathe Operator Internal Medicine 01/15/24 Inclusion Teacher Relationship Specialty Start Date End Date Paddy Zaidi MD [address] [place], [place] [id number] PCP - General Family Medicine 05/27/15 Hever Martínez, SENIOR HRIS ANALYST.OPERATIONS PLANT ATTENDANT [address] [place], [place] [id number] Swing Type Lathe Operator Internal Medicine 01/15/24 Inclusion Teacher Relationship Specialty Start Date End Date Paddy Zaidi MD [address] [place], [place] [address] PCP - General Family Medicine 05/27/15 Hever Martínez, SENIOR HRIS ANALYST.OPERATIONS PLANT ATTENDANT [address] [place], [place] [id number] Swing Type Lathe Operator Internal Medicine 01/15/24 Inclusion Teacher Relationship Specialty Start Date End Date Paddy Zaidi MD [address] [place], [place] [id number] PCP - General Family Medicine 05/27/15 Hever Martínez, SENIOR HRIS ANALYST.OPERATIONS PLANT ATTENDANT [address] [place], [place] [id number] Swing Type Lathe Operator Internal Medicine 01/15/24 Inclusion Teacher Relationship Specialty Start Date End Date Paddy Zaidi MD [address] [place], [place] [id number] PCP - General Family Medicine 05/27/15 Hever Martínez, SENIOR HRIS ANALYST.OPERATIONS PLANT ATTENDANT [address] [place], [place] [id number] Swing Type Lathe Operator Internal Medicine 01/15/24 Goals (unrecognized section and [...] BE BASED ON THE PRIMARY CLINICAL RECORDS. [facility] [employer], [facility]. provides no warranty or guarantee of the accuracy or completeness of information in this document.
--- OUTSIDE RECORDS SUMMARY | 2024-09-10 02:11 | XMS RPT_ITS | CCD ---
Author Organization [facility] Care Team Providers Care Pig Breeder Name Role Phone Paddy Zaidi MD Primary Care Provider Dr. Shayne Zaidi Primary Care Provider Dr. William Paiz Emergency Provider [phone] Dr. Lamberto Dinero Admit Provider Dr. Lamberto Dinero Attending Provider Dr. Lamberto Dinero Other Provider Paddy Zaidi MD Primary Care Provider Dr. Dallas Muller Attending Provider Dr. Dallas Muller Other Provider Dr. Florence Gregg Other Provider Dr. Florence Gregg Attending Provider Paddy Zaidi MD Primary Care Provider Dr. Lito Pérez Attending Provider Dr. Lamberto Dinero Referring Provider Dr. Shayne Zaidi Referring Provider Daksha MANAGER BAKERY, MANAGER BAKERYYolandaC Shanon Attending Provider [phone] Paddy Zaidi MD Primary Care Provider Tanya MEDICAL FILE CLERK.MONOTYPE CASTER, Hever Unavailable Shayne Zaidi Primary Care Unavailable [...] IN] Drug Allergy 5 Mental Status Change [facility] Work Phone: (20 sources) oxyCODONE; Translations: [OXYCODONE] Drug Allergy 9 Other: See Comments [facility] (20 sources) Aspirin; Translations: [ASPIRIN] Drug Allergy 9 Unknown [facility] (1 source) oxyCODONE Drug Allergy 4 [facility] Repository Medications Current Medications Medication Drug Class(es) Dates Sig (Normalized) Sig (Original) [id number] 200 actuat albuterol 0.09 mg/actuat metered dose [...] puff(s) by inhalation every eight hours Ipratropium [place] (Atrovent Hfa) 17 mcg/actuation HFA aerosol inhaler [...] 18 ug by inhalation once daily Tiotropium [place] Discontinued 18 MCG IH DAILY September 08, [...] cardiovascular system; Translations: [Atherosclerotic heart disease of [place] coronary artery without angina pectoris] Onset: 12-17-2004 [...] source) Long-term current use of anticoagulant; Translations: [USP (current) use of anticoagulants] 02-16-2024 Episodic Other aftercare (1 source) USP (current) use of anticoagulants; Translations: [USP current use of anticoagulant therapy] Onset: 06-29-2024 [...] Test Name Value Interpretation Reference Range Facility [facility] 09-05-2024 [facility] Text [facility] ARTURO PEDERSEN ([id number]) 1940 M Date Time Provider Department 09/05/24 SUDHA NOE During your visit today, we recorded the following information about you: Shwetha Kendrick 09/05/2024 4:33 PM Signed Lvm and letter Provider only at [place] now Allergies As of Date: 09/05/2024 Noted [...] Anxiety [F41.9] 12/23/2021 Atherosclerotic heart disease of [place] coronar*10/19/2017 Cerebrovascular accident (CVA) (HCC) [I63.9] 12/23/2021 [...] Status:Closed by SHWETHA KENDRICK on 09/05/24 Normal [facility] CNOVon 07-13-2024 CNOV Office Visit (FPWADS ) ARTURO PEDERSEN ([id number]) 1940 M Date Time Provider Department 07/13/24 [...] atherosclerotic heart disease: Pending electophys eval in [place] in November. No regular cement car dumper. 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 Atherosclerosis of [place] coronary artery of [place] heart without angina pectoris (I25.10) - Referral to cardiology in [facility] for further evaluation and management. [...] - Prescription sent to pharmacy. Recording using Venturepax software for draft documentation of the visit was discussed with the patient/authorized premium service representative; all questions welcomed and answered. Patient/authorized premium service representative agreed to proceed Paddy Zaidi [...] [E78.00] Idiopathic peripheral neuropathy [G60.9] Atherosclerosis of [place] coronary artery of [place] heart without angina pectoris [I25.10] Order(s):nitroglycerin sublingual (NITROQUICK) 0.3 mg SL tabletDissolve 1 tablet under the tongue every 5 minutes as needed.Disp: 25 tabletRfl: (more content not included)... Normal [facility]-2024 [facility] ARTURO PEDERSEN ([id number]) 1940 M Date Time Provider Department 07/13/24 FLAVIA SMITH PULTrudiWS During your visit today, we recorded the following information about you: Flavia Smith APRN.[facility] 07/13/2024 4:40 PM Signed Review of OSH CT with most recent CT does not show worsening of right hemidiaphragm. Left lower lobe nodule no longer seen. Atelectasis in LLL but no further concern for PNA. Needs to complete overnight oxygen testing. Edwina Jones LPN 07/16/2024 9:23 AM Signed Fax to [employer] for overnight records. KELLY Baker Jennifer, MA 07/16/2024 11:51 AM Signed [facility] calls to report attempts made to connect [...] Anxiety [F41.9] 12/23/2021 Atherosclerotic heart disease of [place] coronar*10/19/2017 Cerebrovascular accident (CVA) (HCC) [I63.9] 12/23/2021 [...] by CLICK, FLAVIA Brush on 07/13/24 Normal [facility] CBC panel Auto (Bld)on 06-29 Erythrocyte distribution width (RBC) [Ratio] 13.9 % Normal 11.5-15.0 [facility] Comment on above: Order Comment: Speci men Type: BLOOD SPECIMENOrdering Facility: [facility] Address: [address] [place] [address] Performed By: #### 5 8410-2 ####[facility] [id number] [place] [address] [place] Hematocrit (Bld) [Volume fraction] 45.0 % Normal 39.0-51.0 [facility] Comment on above: Order Comment: Speci men Type: BLOOD SPECIMENOrdering Facility: [facility] Address: [address] [place] [address] Performed By: #### 5 8410-2 ####[facility] [id number] [address] [place] Hemoglobin (Bld) [Mass/Vol] 14.1 g/dL Normal 13.0-17.0 [facility] Comment on above: Order Comment: Speci men Type: BLOOD SPECIMENOrdering Facility: [facility] Address: [address] [place] [address] Performed By: #### 5 8410-2 ####[facility]ITALNCLIA [id number] [place] [address] [place] MCH (RBC) [Entitic mass] 29.9 pg Normal 26.0-34.0 [facility] Comment on above: Order Comment: Speci men Type: BLOOD SPECIMENOrdering Facility: [facility] Address: [address] [place] [address] Performed By: #### 5 8410-2 ####[facility] YANGWNCLIA [id number] [place] [address] [place] MCHC (RBC) [Mass/Vol] 31.3 g/dL Normal 30.5-36.0 [facility] Comment on above: Order Comment: Speci men Type: BLOOD SPECIMENOrdering Facility: [facility] Address: [address] [place] [address] Performed By: #### 5 8410-2 ####[facility]ITALNCA [id number] [address] [place] MCV (RBC) [Entitic vol] 95.5 fL Normal 80.0-100.0 [facility] Comment on above: Order Comment: Speci men Type: BLOOD SPECIMENOrdering Facility: [facility] Address: [address] [place] [address] Performed By: #### 5 8410-2 ####[facility] [id number] [place] [address] [place] Nucleated RBC (Bld) [#/Vol] 10*3/uL Normal <0.01 [facility] Comment on above: Order Comment: Speci men Type: BLOOD SPECIMENOrdering Facility: [facility] Address: [address] [place] [address] Performed By: #### 5 8410-2 ####[facility]ITALL[facility] [id number] [address] [place] Platelet mean volume (Bld) [Entitic vol] 9.9 fL Normal 9.0-12.7 [facility] Comment on above: Order Comment: Speci men Type: BLOOD SPECIMENOrdering Facility: [facility] Address: [address] [place] [address] Performed By: #### 5 8410-2 ####[facility] [id number] [place] [address] [place] Platelets (Bld) [#/Vol] 164 10*3/uL Normal 150-400 [facility] Comment on above: Order Comment: Speci men Type: BLOOD SPECIMENOrdering Facility: [facility] Address: [address] [place] [address] Performed By: #### 5 8410-2 ####[facility]ITALNCLIA [id number] [place] [address] [place] RBC (Bld) [#/Vol] 4.71 10*6/uL Normal 4.20-6.00 [facility] Comment on above: Order Comment: Speci men Type: BLOOD SPECIMENOrdering Facility: [facility] Address: [address] [place] [address] Performed By: #### 5 8410-2 ####[facility]ITALNCLIA [id number] [place] [address] [place] WBC (Bld) [#/Vol] 11.36 10*3/uL High 3.70-11.00 [facility] Comment on above: Order Comment: Speci men Type: BLOOD SPECIMENOrdering Facility: [facility] Address: [address] [place] [address] Performed By: #### 5 8410-2 ####[facility]ITALNCLIA [id number] [place] [address] [place] CNOVon 06-29-2024 CNOV Office Visit (PULMWS ) ARTURO PEDERSEN ([id number]) 1940 M Date Time Provider Department 06/29/24 1:00 PM FLAVIA SMITH PULWM During your visit today, we recorded the following information about you: Pulse Respiration Blood pressure 69/minute 18/minute 108/64 Flavia Smith APRN.MONOTYPE CASTER 06/29/2024 7:32 PM Signed Pulmonary Medicine Patients name: Arturo Campbell PCP: Paddy Zaidi MD CC: follow-up HPI: Arturo Pedersen is a 83 year old male former 38-ugyg-mjxn smoker quitting in 1992 with PMH significant for obesity, coronary artery disease s/p CABG and stent, previous stroke, GERD, HLD, prostate cancer s/p radiation, HTN, PAF on AC, central sleep apnea not wearing PAP, chronic hypoxemic respiratory failure. Current inhaled therapy Advair and PRN Albuterol. He presents today for follow-up with his assistant womens volleyball coach. YOLANDA 03/2024 with exertional dyspnea, chest tightness and wheezing. Started on Advair at that time. Oximetry with ambulation at that time did not show need for supplemental O2 with exertion. He and his assistant womens volleyball coach insist he can't even stand up without [...] in acut (more content not included)... Normal [facility] Comprehensive metabolic 2000 panelon 06-29-2024 Albumin [Mass/Vol] 4.0 g/dL Normal 3.9-4.9 [facility] Comment on above: Order Comment: Speci men Type: BLOOD SPECIMENOrdering Facility: [facility] Address: [address] [place] [address] Performed By: #### 2 4323-8 ####[facility] MILLTOWNCLIA [id number] [place] [address] [place] ALP [Catalytic activity/Vol] 123 U/L High 38-113 [facility] Comment on above: Order Comment: Speci men Type: BLOOD SPECIMENOrdering Facility: [facility] Address: [address] [place] [address] Performed By: #### 2 4323-8 ####[facility] MILLWNCLIA [id number] [place] [address] [place] ALT [Catalytic activity/Vol] 12 U/L Normal 10-54 [facility] Comment on above: Order Comment: Speci men Type: BLOOD SPECIMENOrdering Facility: [facility] Address: [address] [place] [address] Performed By: #### 2 4323-8 ####[facility] MILLTOWNCLIA [id number] [place] [address] [place] Anion gap [Moles/Vol] 11 mmol/L Normal 8-15 [facility] Comment on above: Order Comment: Speci men Type: BLOOD SPECIMENOrdering Facility: [facility] Address: [address] [place] [address] Performed By: #### 2 4323-8 ####[facility] MILLTOWNCLIA [id number] [place] [address] [place] AST [Catalytic activity/Vol] 15 U/L Normal 14-40 [facility] Comment on above: Order Comment: Speci men Type: BLOOD SPECIMENOrdering Facility: [facility] Address: [address] [place] [address] Performed By: #### 2 4323-8 ####[facility]PITALWNCLIA [id number] [place] [address] [place] Bilirubin [Mass/Vol] 0.8 mg/dL Normal 0.2-1.3 [facility] Comment on above: Order Comment: Speci men Type: BLOOD SPECIMENOrdering Facility: [facility] Address: [address] [place] [address] Performed By: #### 2 4323-8 ####[facility]ITALNCLIA [id number] [place] [address] [place] Calcium [Mass/Vol] 9.5 mg/dL Normal 8.5-10.2 [facility] Comment on above: Order Comment: Speci men Type: BLOOD SPECIMENOrdering Facility: [facility] Address: [address] [place] [address] Performed By: #### 2 4323-8 ####[facility]ITALNCLIA [id number] [place] [address] [place] Chloride [Moles/Vol] 101 mmol/L Normal 98-107 [facility] Comment on above: Order Comment: Speci men Type: BLOOD SPECIMENOrdering Facility: [facility] Address: [address] [place], [place] [address] Performed By: #### 2 4323-8 ####[facility]ITALNCLIA [id number] [place] [address] [place] CO2 [Moles/Vol] 26 mmol/L Normal 22-30 [facility] Comment on above: Order Comment: Speci men Type: BLOOD SPECIMENOrdering Facility: [facility] Address: [address] [place] [address] Performed By: #### 2 4323-8 ####[facility] YANGNORFOLKNCTHE [facility] [id number] [place] [address] [place] Creatinine [Mass/Vol] 0.75 mg/dL Normal 0.73-1.22 [facility] Comment on above: Order Comment: Speci men Type: BLOOD SPECIMENOrdering Facility: [facility] Address: [address] [place] [address] Performed By: #### 2 4323-8 ####[facility]OS[facility]ITALNCLI [id number] [place] [address] [place] Creatinine and Glomerular filtration rate.predicted panel (S/P/Bld) 89 mL/min/1.73m??? Normal >=60 [facility] Comment on above: Order Comment: Speci men Type: BLOOD SPECIMENOrdering Facility: [facility] Address: [address] [place] [address] Result Comment: Calista mated Glomerular Filtration Rate [...] actual GFR. Performed By: #### 2 4323-8 ####[facility]ITALNCLIA [id number] [place] [address] [place] Glucose [Mass/Vol] 111 mg/dL High 74-99 [facility] Comment on above: Order Comment: Speci men Type: BLOOD SPECIMENOrdering Facility: [facility] Address: [address] [place] [address] Result Comment: The [place] Diabetes Association (ADA) provides guidance for cutoff [...] Standards of Medical Care in Diabetes 2016, [place] Diabetes Association. Diabetes Care. 2016.39(Suppl 1). Performed By: #### 2 4323-8 ####[facility]PITALLIA [id number] [place] [address] [place] Potassium [Moles/Vol] 4.4 mmol/L Normal 3.7-5.1 [facility] Comment on above: Order Comment: Speci men Type: BLOOD SPECIMENOrdering Facility: [facility] Address: [address] [place] [address] Performed By: #### 2 4323-8 ####[facility]PITALLIA [id number] [place] [address] [place] Protein [Mass/Vol] 6.9 g/dL Normal 6.3-8.0 [facility] Comment on above: Order Comment: Kika bryant Type: BLOOD SPECIMENOrdering Facility: [facility] Address: [address] [place] [address] Performed By: #### 2 4323-8 ####[facility]PITALLIA [id number] [place] [address] [place] Sodium [Moles/Vol] 138 mmol/L Normal 136-144 [facility] Comment on above: Order Comment: Lanii men Type: BLOOD SPECIMENOrdering Facility: [facility] Address: [address] [address] Performed By: #### 2 4323-8 ####[facility]ITALL[facility] [id number] [place] [address] [place] Urea nitrogen [Mass/Vol] 23 mg/dL Normal 9-24 [facility] Comment on above: Order Comment: Speci men Type: BLOOD SPECIMENOrdering Facility: [facility] Address: [address] [place] [address] Performed By: #### 2 4323-8 ####[facility]OSPITALWNCLIA [id number] [place] [address] [place] Lipid 1996 panelon 5 Cholesterol [Mass/Vol] 125 mg/dL Normal <200 [facility] Comment on above: Order Comment: Speci men Type: BLOOD SPECIMENOrdering Facility: [facility] Address: [address] [place] [address] Result Comment: <200 mg/dL, Desirable 200-239 mg/dL, Borderline high >239 mg/dL, High Performed By: #### 2 4331-1 ####[facility] LABCLIA [id number] [address] [place] [address] [place] [facility] [id number] [place] [address] [place]#### 3016-3 ####[facility] LABCLIA [id number] [address] [place] [address] [place] Cholesterol in HDL [Mass/Vol] 44 mg/dL Normal >39 [facility] Comment on above: Order Comment: Speci men Type: BLOOD SPECIMENOrdering Facility: [facility] Address: [address] [place] [address] Result Comment: 40-5 9 mg/dL, Acceptable >59 mg/dL, High: Negative risk factor for coronary heart disease <40 mg/dL, Low: Positive risk factor for coronary heart disease Performed By: #### 2 4331-1 ####[facility] LABCLIA [id number] [facility]ALK [address] [place] [address] [place] [facility]ICAM[facility] [id number] [address]#### 3016-3 ####[facility] [id number] [address] Cholesterol in LDL [Mass/Vol] 66 mg/dL Normal <100 [facility] Comment on above: Order Comment: Speci men Type: BLOOD SPECIMENOrdering Facility: [facility] Address: [address] [place] [address] Result Comment: <100 mg/dL, Optimal 100-129 mg/dL, Near optimal/above optimal 130-159 mg/dL, Borderline high 160-189 mg/dL, High >189 mg/dL, Very high Secondary prevention optimal LDL Cholesterol levels are recommended to be <70 mg/dL LDL cholesterol is calculated using the Yost-NIH equation. Performed By: #### 2 4331-1 ####[facility] [id number] [address] [id number] [address]#### 3016-3 ####[facility] [id number] [address] Cholesterol in LDL/Cholesterol in HDL [Mass ratio] 1.50 {ratio} Normal <2.54 [facility] Comment on above: Order Comment: Speci men Type: BLOOD SPECIMENOrdering Facility: [facility] Address: [address] [place] [address] Result Comment: Ana red: 1. National Cholesterol Education Program ATP III Guideline At-A-Glance Quick Desk Reference: National Heart, Lung, and Blood [place]. National Institutes of Health. 2001: NIH Publication No. 01-3305. 2. An International Atherosclerosis Society position paper: global recommendations for the management of dyslipidemia: executive summary, Atherosclerosis. 2014: 232(2):410-413. Performed By: #### 2 4331-1 ####[facility] LABCLIA [id number] [facility]ALK [address] [place] [address] [place] [facility] [id number] [address] [place]#### 3016-3 ####[facility] LABCLIA [id number] [facility] [address] [place] [address] [place] Cholesterol in VLDL [Mass/Vol] 11 mg/dL Normal <30 [facility] Comment on above: Order Comment: Speci men Type: BLOOD SPECIMENOrdering Facility: [facility] Address: [address] [place] [address] Performed By: #### 2 4331-1 ####[facility] LABCLIA [id number] [address] [place] [address] [place] [facility] [id number] [place] [address] [place]#### 3016-3 ####[facility] LABCLIA [id number] [address] [place] [address] [place] Cholesterol non HDL [Mass/Vol] 81 mg/dL Normal <130 [facility] Comment on above: Order Comment: Speci men Type: BLOOD SPECIMENOrdering Facility: [facility] Address: [address] [place] [address] Result Comment: <130 mg/dL, Optimal 130-159 mg/dL, Near optimal/above optimal 160-189 mg/dL, Borderline high 190-219 mg/dL, High >219 mg/dL, Very high Secondary prevention optimal non HDL Cholesterol levels are recommended to be <100 mg/dL Performed By: #### 2 4331-1 ####[facility] LABCLIA [id number] [facility] [address] [place] [address] [facility] [id number] [place] [address] [place]#### 3016-3 ####[facility] LABCLIA [id number] [place] [address] [place] Cholesterol.total/Choles terol in HDL [Mass ratio] 2.84 {ratio} Normal <5.10 [facility] Comment on above: Order Comment: Speci men Type: BLOOD SPECIMENOrdering Facility: [facility] Address: [address] [place] [address] Performed By: #### 2 4331-1 ####[facility] LABCLIA [id number] [address] OF [facility] [id number] [place] [address] [place]#### 3016-3 ####[facility] LABCLIA [id number] [place] [address] [place] FASTING TIME 12 hrs Normal [facility] Comment on above: Order Comment: Speci men Type: BLOOD SPECIMENOrdering Facility: [facility] Address: [address] [place] [address] Performed By: #### 2 4331-1 ####[facility] LABCLIA [id number] [address] STATES OF [facility] [id number] [address] [place]#### 3016-3 ####[facility] LABCLIA [id number] [place] [id number] [place] Triglyceride [Mass/Vol] 71 mg/dL Normal <150 [facility] Comment on above: Order Comment: Speci men Type: BLOOD SPECIMENOrdering Facility: [facility] Address: [address] [place] [address] Result Comment: <150 mg/dL, Normal 150-199 mg/dL, Borderline high 200-499 mg/dL, High >499 mg/dL, Very high Performed By: #### 2 4331-1 ####[facility] LABCLIA [id number] [address] STATES OF [facility] [id number] [address]#### 3016-3 ####[facility]PITAL[facility] [id number] [address] [place] PT panel Coag (PPP)on 2024 INR Coag (PPP) [Relative time] 1.2 {INR} Normal 0.9-1.3 [facility] Comment on above: Order Comment: Speci men Type: BLOOD SPECIMENOrdering Facility: [facility] Address: [address] [place] [address] Result Comment: Marilee min K Antagonist (VKA) Therapeutic Range: INR 2 to 3 (Target INR of 2.5) Note: For patients treated with VKA drugs, such as warfarin, the [place] [employer] 2012 Guideline recommends [...] 70: 252-289 Performed By: #### 3 4528-0 ####[facility] [id number] [address] [place] PT Coag (PPP) [Time] 12.6 s Normal <13.1 [facility] Comment on above: Order Comment: Speci men Type: BLOOD SPECIMENOrdering Facility: [facility] Address: [address] [place] [address] Performed By: #### 3 4528-0 ####[facility] [id number] [address] TSH SerPl-aCncon 06-29-2024 TSH Qn 2.210 m[IU]/L Normal 0.270-4.200 [facility] Comment on above: Order Comment: Speci men Type: BLOOD SPECIMENOrdering Facility: [facility] Address: [address] [place] [address] Performed By: #### 2 4331-1 ####[facility] LABCLIA [id number] [address] [id number] [address]#### 3016-3 ####[facility] LABCLIA [id number] [address] CNOVon 03-27-2024 CNOV Office Visit (PULMWS ) ARTURO PEDERSEN ([id number]) 1940 M Date Time Provider Department 03/27/24 2:00 PM FLAVIA SMITH PULMWS During your visit today, we recorded the following information about you: Pulse Respiration Blood pressure 90/minute 18/minute 122/80 Flavia Smith, MEDICAL FILE CLERK.MONOTYPE CASTER 03/27/2024 5:53 PM Signed Pulmonary Medicine Patients name: Arturo Campbell PCP: Paddy Zaidi MD CC: follow-up HPI: Arturo Pedersen is a 83 year old male former 21-txbj-fzjx smoker quitting in 1992 with PMH significant [...] Had also just previously been hospitalized at [facility] for Pneumonia. At his last [...] tightness. Has frequent wheezing that prompts his assistant womens volleyball coach to remind him to use Albuterol. No [...] 160-9-4.8 mcg/actuation HFA aerosol inhaler Generic drug: ccndxlsmin-vegpuimm-wlp moterol Inhale 2 Puffs as instructed two [...] for arthra (more content not included)... Normal [facility] CT CHEST WO IVCONon 03-27-19 CT CHEST WO IVCON * * *Final Report* * * DATE OF EXAM: Mar 27 2024 3:54PM [facility] 0541 - CT CHEST WO [...] enlargement. Status post CABG surgery with severe [place] coronary artery atherosclerotic calcifications are noted, although [...] significantly enlarged lymph nodes in the chest. Detail Supervisor: FATOUMATA Transcribe Date/Time: Mar 31 2024 5:10P Dictated by : VIDA CAAL MD This examination was interpreted and the report reviewed and electronically signed by: VIDA CAAL MD on Mar 31 2024 5:18PM EST [id number] Normal [facility] OXIMETRY WITH AMBULATIONon 0 03-27-2024 Shelly Sims [...] Patient does not have a faster pace [facility] Tessa 03-21-2024 [facility] Telephone (ELIZABETH) PEDERSENARTURO Mann ([id number]) 1940 M Date Time Provider Department 03/21/24 [...] TABLET BY MOUTH ONCE DAILY DIRECTED - ywnsxqraeu-yhggiizy-fol moterol (BREZTRI AEROSPHERE) 160-9-4.8 mcg/actuation HFA aerosol [...] Anxiety [F41.9] 12/23/2021 Atherosclerotic heart disease of [place] coronar*10/19/2017 Cerebrovascular accident (CVA) (HCC) [I63.9] 12/23/2021 [...] acute postp (more content not included)... Normal [facility] CNPNon 03-06-2024 CNPN Telephone (PULTrudiWS) ARTURO PEDERSEN ([id number]) 1940 M Date Time Provider Department 03/06/24 RAINA HUYNH During your visit today, we recorded the following information about you: Judy Wong MA 03/06/2024 9:29 AM Signed Analilia - Pharmacist from [facility] calling and asking if there is an [...] Fully Assessed Prescriptions as of 03/08/2024 - wgxrmadoee-krcvzkkm-luf moterol (BREZTRI AEROSPHERE) 160-9-4.8 mcg/actuation HFA aerosol [...] Anxiety [F41.9] 12/23/2021 Atherosclerotic heart disease of [place] coronar*10/19/2017 Cerebrovascular accident (CVA) (HCC) [I63.9] 12/23/2021 [...] Status:Closed by EDWINA JONES on 03/08/24 Normal [facility] Telephone (FPWADS) ARTURO PEDERSEN ([id number]) 1940 M Date Time Provider Department 03/06/24 [...] a day. Call Hui back with response [phone]-did advise her to clean out VM so we can leave messages. FREIDA Olivarez Jeffery R, MD 03/16/2024 5:19 PM Signed Just take 1 time dose of 5 mg. One extra pill just one dose. Check INR in 2 weeks MD True Sheehan Mary Kay, FREIDA 03/17/2024 9:32 AM Signed Called Hui at [phone] Vm still full-could not leave message. Called all other listed numbers- no answer. VM's are all full-could not leave message. Not active on MyChart. Will need to try again later. FREIDA Olivarez, Natalia, RN 03/19/2024 10:52 AM Signed Called [phone]. No answer. Mailbox still full. Isabell Sood, [...] TABLET BY MOUTH ONCE DAILY DIRECTED - uukkvxanue-qsunoslx-wtt moterol (BREZTRI AEROSPHERE) 160-9-4.8 mcg/actuation HFA aerosol [...] Anxiety [F41.9] 12/23/2021 Atherosclerotic heart disease of [place] coronar*10/19/2017 Cerebrovascular accident (CVA) (HCC) [I63.9] 12/23/2021 [...] cord [J38 (more content not included)... Normal [facility] CNOVon 03-05-2024 CNOV Office Visit (PULMWS ) ARTURO PEDERSEN ([id number]) 1940 M Date Time Provider Department 03/05/24 3:15 PM RAINA HUYNH PULMWS During your visit today, we recorded the following information about you: Pulse Respiration Blood pressure Weight 112/minute 14/minute 122/68 96.2 kg Height 1.715 m Raina Huynh MD 03/05/2024 4:00 PM Signed . Respiratory [place] Note Patient name: Arturo Pedersen PCP: Paddy Zaidi MD Referring Physician: Hever Martínez CNP Consultation requested by Hever Martínez for an opinion regarding COPD. My final recommendations will be communicated back to the requesting physician by way of shared Medical record or letter to requesting physician via US mail. CC: COPD HPI: Arturo Pedersen 83 year old male former 97-jhdm-dpcz smoker quitting in 1992 with PMH significant for obesity, coronary artery disease s/p CABG and stent, previous stroke, GERD, HLD, prostate cancer s/p radiation, HTN, PAF on AC, central sleep apnea not wearing PAP, chronic hypoxemic respiratory failure being sent for evaluation of COPD. Recently hospitalized at [facility] for pneumonia. CT of the chest [...] recurrent bronchitis. DME: [employer] DATA: PFT: PFT [facility] 10/23/2018; FVC 2.41 L 57% FEV1 1.62 L 54% FEV1/FVC 67% No improvement post-bronchodilator TLC 5.01 L 76% RV 2.60 L 94% RV/TLC 52% DLCO 15.2 73% Imaging / Diagnostic Studies: [facility] MR#: [id number] Acct: [id number] Name: ARTURO PEDERSEN Rep #: [id number] : 1940 M 83 From: Shayne Holt [...] the tongue every 5 minutes as needed. dwpldxpdtw-mremndmg-lye moterol (BREZTRI AEROSPHERE) 160-9-4.8 mcg/actuation HFA aerosol inhaler Inhale 2 Puffs as instructed two times a day. albuterol HFA (PROVENTIL HFA, VENTOLIN HFA) 90 mcg/actuation inhaler Inhale 2 Puffs as instructed every 4 hours as needed for wheezing/shortness of breath. warfarin (COUMADIN) (more content not included)... Normal [facility] No Panel Informationon 03-05 DLCO (ml/min/mmHg) 12.07 ml/min/mmHg [facility] DLCO LLN (ml/min/mmHg) 11.87 ml/min/mmHg [facility] DLCO PREDICTED (ml/min/mmHg) 21.80 ml/min/mmHg [facility] DLCO ULN (ml/min/mmHg) 31.74 ml/min/mmHg [facility] DLCO/VA (ml/min/mmHg/L) 4.14 ml/m in/mmHg/ L [facility] DLCO/VA PREDICTED (ml/min/mmHg/L) 3.63 ml/min/mmHg/ L [facility] DLCOcor PREDICTED (ml/min/mmHg) 21.80 ml/min/mmHg [facility] ERV PREDICTED (L) 1.12 L/S [facility] FEF25% POST (L/S) 3.52 L/S [facility] FEF25% PRE (L/S) 2.38 L/S [facility] JRW83-20% LLN (L/S) 0.63 L/S [facility] HIV61-82% POST (L/S) 0.46 L/S [facility] FLZ56-10% PRE (L/S) 0.42 L/S [facility] MGL51-21% PREDICTED (L/S) 1.77 L/S [facility] FEF75% LLN (L/S) 0.13 L/S [facility] FEF75% POST (L/S) 0.13 L/S [facility] FEF75% PRE (L/S0 0.14 L/S [facility] FEF75% PREDICTED (L/S) 0.41 L/S [facility] FEF75% ULN (L/S) 1.23 L/S [facility] FET POST (S) 10.37 S [facility] FET PRE (S) 11.27 S [facility] FEV1 LLN (L) 1.76 L [facility] FEV1 PRE (L) 1.19 L [facility] FEV1 PREDICTED (L) 2.46 L [facility] FEV1 ULN (L) 3.11 L [facility] FEV1/FVC LLN (%) 61 % [facility] FEV1/FVC POST (%) 64 % [facility] FEV1/FVC PRE (%) 60 % [facility] FEV1/FVC PREDICTED (%) 76 % [facility] FEV1_POST (L) 1.23 L [facility] FVC LLN (L) 2.46 L [facility] FVC POST (L) 1.93 L [facility] FVC PRE (L) 1.97 L [facility] FVC PREDICTED (L) 3.35 L [facility] FVC ULN (L) 4.26 L [facility] IC PREDICTED (L) 2.24 L/S [facility] PEF LLN (L/S) 3.95 L/S [facility] PEF POST (L/S) 4.29 L/S [facility] PEF PRE (L/S) 4.00 L/S [facility] PEF ULN (L/S) 8.26 L/S [facility] SVC LLN (L) 2.46 L/S [facility] SVC PREDICTED (L) 3.35 L/S [facility] SVC ULN (L) 4.26 L/S [facility] VA (L) 2.92 L [facility] VA PREDICTED (L) 6.34 L [facility] [address] [facility], [place] [address] Test Date: 2024-03-05 Pat Name: ARTURO PEDERSEN Department: Room: Gender: M Overcoiler: : 1940 Requested By: Order Number: [id number] Reading MD: Raina Huynh MD Interpretive Statements [...] 16:02:40 EST by Raina Huynh MD ID: [id number] Name: ARTURO PEDERSEN Race: White Ht: 67.52 [...] 0.43 37 FIVC (L) 1.96 1.86 -4 NBZ36-04 (L/sec) 0.42 0.63 1.77 3.49 23 0.46 [...] may not be valid. PULMONARY FUNCTION LAB [facility] PT panel Coag (PPP)on 2024 INR Coag (PPP) [Relative time] 1.5 {INR} High 0.9-1.3 [facility] Comment on above: Order Comment: Speci men Type: BLOOD SPECIMEN [facility] Address: [address] [place] [address] Result Comment: Marilee min K Antagonist (VKA) Therapeutic Range: INR 2 to 3 (Target INR of 2.5) Note: For patients treated with VKA drugs, such as warfarin, the [place] [employer] 2012 Guideline recommends [...] Chest 2012, 141:7S-47S Alvino RA, et al. [facility] 2017, 70: 252-289 Performed By: #### 3 4528-0 #### [facility] [id number] [address] [place] [address] [place] PT Coag (PPP) [Time] 15.8 s High <13.1 [facility] Comment on above: Order Comment: Speci men Type: BLOOD SPECIMEN [facility] Address: [address] [place] [address] Performed By: #### 3 4528-0 #### [facility] [id number] [address] [place] [address] [place] CNPRadha 02-15-2024 [facility] ART[facility] PEDERSEN ([id number]) 1940 M Date Time Provider Department 02/15/24 [...] of symptoms: N/A Hui Call patient at: [phone] (home) [phone] (cell) Was an appointment scheduled: No Closing [...] for 1x per week, standing order for [place] lab. Once he's on a steady dose can cut this back to 1x per sergio . MD Marissa Sheehan Lisa, LPN 02/16/2024 10:22 AM Signed Patients son aware that medication was sent to [facility] in [place]. Son stated he understood that blood work needed drawn in 1 week in [place]. 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 Normal [facility] CNOVon 02-14-2024 CNOV Office Visit (FPWADS ) ARTURO PEDERSEN ([id number]) 1940 M Date Time Provider Department 02/14/24 2:00 PM HEVER MARTÍNEZ FPWADS During your visit today, we recorded the following information about you: Pulse Blood pressure 96/minute 132/78 Hever Martínez APRN.MONOTYPE CASTER 02/14/2024 4:39 PM Signed This note was created using NoteWriter. Subjective Arturo Mario is a 83 year old male. 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 Treated for RLL pneumonia at the ER, [...] of AFIB and CAD, never seen a cement car dumper. Uses walker for ambulation, sleeps in the [...] HIP FRACTURE(S) Left 11/2017 hip screw placed [facility] ALL[facility] Aspirin, Oxycodone, and Percodan [...] obstructive pulmonary disease, unspecified COPD type ([facility]) Recommend to establish care with residential manager, continue oxygen. - CONSULT TO PULMONARY MEDICINE 3. Adjustment disorder with mixed anxiety an (more content not included)... Normal [facility] Tessa 02-14-2024 [facility]FP[facility] ARTURO PEDERSEN ([id number]) 1940 M Date Time Provider Department 02/14/24 [...] Authorizing Provider: PADDY ZAIDI MD Hummel, Megan, APRN.MONOTYPE CASTER 02/15/2024 9:01 AM Signed New Rx sent [...] Anxiety [F41.9] 12/23/2021 Atherosclerotic heart disease of [place] coronar*10/19/2017 Cerebrovascular accident (CVA) (HCC) [I63.9] 12/23/2021 [...] [facility] Telephone (POOJAWAPATY) ARTURO PEDERSEN ([id number]) 1940 M Date Time Provider Department 02/14/24 HEVER MARTÍNEZ During your visit today, we recorded the following information about you: Lacie Muñoz 02/14/2024 4:12 PM Signed 1st attempt to reach for scheduling, left voicemail. Adrian was seen at [place] primary [facility] today, and Hever referred him to see Pulmonology. He was unable to stay for scheduling but he and his caregiver said they would like to do all the appointments at [place]. Although there are many available times to [...] patients son and schedule pulmonology appt in [place] Allergies As of Date: 02/14/2024 Noted Allergy [...] Anxiety [F41.9] 12/23/2021 Atherosclerotic heart disease of [place] coronar*10/19/2017 Cerebrovascular accident (CVA) (HCC) [I63.9] 12/23/2021 [...] Encounter Status:Closed by LACIE MUÑOZ on 02/14/24 [facility] Tessa 02-13-2024 [facility] Telephone (FPWAPATY) ARTURO PEDERSEN ([id number]) 1940 M Date Time Provider Department 02/13/24 PADDY ZAIDI During your visit today, we recorded the following information about you: Ge Will LPN 02/13/2024 11:29 AM Signed Received visit summary for SOB from [facility]. Placed in provider's inbox for review. Route to MA scanning Allergies As of Date: 02/13/2024 Noted Allergy Reaction ASPIRIN 04/19/2018 16 - Unknown OXYCODONE 04/19/2018 14 - Other: See Comments PERCODAN (OXYCODONE-ASPIRIN) 12/17/2004 1 - Mental Status Change Date Reviewed: 06/07/2023 Reviewed by: Ge Will LPN - Fully Assessed Reason for Visit: Received Outside Medical Records [1817] Cmt: [facility] ED Prescriptions as of 02/13/2024 [...] Anxiety [F41.9] 12/23/2021 Atherosclerotic heart disease of [place] coronar*10/19/2017 Cerebrovascular accident (CVA) (HCC) [I63.9] 12/23/2021 [...] Status:Closed by GE WILL on 02/13/24 Normal [facility] Basic Metabolic Profile (BMP )on 02-07-2024 BUN/CRE 27.3 RATIO High 10-20 [facility] Comment on above: Performed By: #### L 100.0100, L500.2500 #### [facility] [address] [place], [address] CA,Total 9.5 mg/dL Normal 8.5-10.1 [facility] Comment on above: Performed By: #### L 100.0100, L500.2500 #### [facility] [address] [place], [address] Chloride [Moles/Vol] 102 mmol/L Normal 98-107 [facility] Comment on above: Performed By: #### L 100.0100, L500.2500 #### [facility] [address] [place], [address] CO2 [Moles/Vol] 32.0 mmol/L Normal 21.0-32.0 [facility] Comment on above: Performed By: #### L 100.0100, L500.2500 #### [facility] [address] [place], [address] Creatinine [Mass/Vol] 0.81 mg/dL Normal 0.70-1.30 [facility] Comment on above: Result Comment: The validity of the calculated GFR GFRAA in patients over 70 years has not been determined. Clinical correlation is essential. Performed By: #### L 100.0100, L500.2500 #### [facility] [address] [place], [address] EST GFR - AA 117 mL/min Normal >60 [facility] Comment on above: Result Comment: Afri can [place] GFR Calc Performed By: #### L 100.0100, L500.2500 #### [facility] [address] [place], [address] GAP 3 Low 5-15 [facility] Comment on above: Performed By: #### L 100.0100, L500.2500 #### [facility] [address] [place], [address] GFR/1.73 sq M.predicted among non-blacks MDRD (S/P/Bld) [Vol rate/Area] 97 mL/min/{1.73_m2} Normal >60 [facility] Comment on above: Result Comment: Non- GFR Calc Performed By: #### L 100.0100, L500.2500 #### [facility] [address] [place], [address] Glucose [Mass/Vol] 117 mg/dL High 74-106 [facility] Comment on above: Result Comment: Fast ing Glucose result from 100 to 125 mg/dL suggests IMPAIRED HOMEOSTASIS per A.D.A. criteria. Performed By: #### L 100.0100, L500.2500 #### [facility] [address] [place], [address] Potassium [Moles/Vol] 4.6 mmol/L Normal 3.5-5.1 [facility] Comment on above: Performed By: #### L 100.0100, L500.2500 #### [facility] [address] [place], [address] Sodium [Moles/Vol] 137 mmol/L Normal 136-145 [facility] Comment on above: Performed By: #### L 100.0100, L500.2500 #### [facility] [address] [place], [address] Urea nitrogen [Mass/Vol] 22 mg/dL High 7-18 [facility] Comment on above: Performed By: #### L 100.0100, L500.2500 #### [facility] [address] [place], [address] CBC W/Diff, Automatedon 12-3 -2023 Absolute Lymph 0.90 X10 3/uL Normal 0.83-4.51 [facility] Comment on above: Performed By: #### L 100.0100, L500.2500 #### [facility] [address] [place], [address] Absolute Neut 12.6 X10 3/uL High 2.0-7.7 [facility] Comment on above: Performed By: #### L 100.0100, L500.2500 #### [facility] [address] [place], [address] Basophils/100 WBC (Bld) 0.7 % Normal 0-1 [facility] Comment on above: Performed By: #### L 100.0100, L500.2500 #### [facility] [address] [place], [address] Eosinophils/100 WBC (Bld) 1.4 % Normal 0-5 [facility] Comment on above: Performed By: #### L 100.0100, L500.2500 #### [facility] [address] [place], [address] Erythrocyte distribution width (RBC) [Ratio] 13.2 % Normal 11.6-14.6 [facility] Comment on above: Performed By: #### L 100.0100, L500.2500 #### [facility] [address] [place], [address] Hematocrit (Bld) [Volume fraction] 46.2 % Normal 40-54 [facility] Comment on above: Performed By: #### L 100.0100, L500.2500 #### [facility] [address] [place], [address] Hemoglobin (Bld) [Mass/Vol] 14.5 g/dL Normal 13.0-16.5 [facility] Comment on above: Performed By: #### L 100.0100, L500.2500 #### [facility] [address] [place], [address] IG% 1.200 High 0.0-0.9 [facility] Comment on above: Result Comment: IG% - Immature Granulocytes (promyelocytes, myelocytes and metamyelocytes) > 1% indicates that a LEFT SHIFT is Present. Performed By: #### L 100.0100, L500.2500 #### [facility] [address] [place], [address] Lymphocytes/100 WBC (Bld) 6.1 % Low 19-41 [facility] Comment on above: Performed By: #### L 100.0100, L500.2500 #### [facility] [address] [place], [address] MCH (RBC) [Entitic mass] 31.1 pg Normal 27.0-32.0 [facility] Comment on above: Performed By: #### L 100.0100, L500.2500 #### [facility] [address] [place], [address] MCHC (RBC) [Mass/Vol] 31.4 g/dL Low 32-36 [facility] Comment on above: Performed By: #### L 100.0100, L500.2500 #### [facility] [address] [place], [address] MCV (RBC) [Entitic vol] 99.1 fL High 80-94 [facility] Comment on above: Performed By: #### L 100.0100, L500.2500 #### [facility] [address] [place], [address] Monocytes/100 WBC (Bld) 5.0 % Normal 0-10 [facility] Comment on above: Performed By: #### L 100.0100, L500.2500 #### [facility] [address] [place], [address] Neutrophils/100 WBC (Bld) 85.6 % High 47-70 [facility] Comment on above: Performed By: #### L 100.0100, L500.2500 #### [facility] [address] [place], [address] Nucleated RBC (Bld) [#/Vol] 0 10*3/uL Normal 0-5 [facility] Comment on above: Performed By: #### L 100.0100, L500.2500 #### [facility] [address] [place], [address] Platelet mean volume (Bld) [Entitic vol] 8.7 fL Normal 6.2-12.0 [facility] Comment on above: Performed By: #### L 100.0100, L500.2500 #### [facility] [address] [place], [address] Platelets (Bld) [#/Vol] 243 10*3/uL Normal 150-450 [facility] Comment on above: Performed By: #### L 100.0100, L500.2500 #### [facility] [address] [place], [address] RBC (Bld) [#/Vol] 4.66 10*6/uL Normal 4.6-6.2 [facility] Comment on above: Performed By: #### L 100.0100, L500.2500 #### [facility] [address] [place], [address] RDW SD 47.5 fl High 35.1-43.9 [facility] Comment on above: Performed By: #### L 100.0100, L500.2500 #### [facility] [address] [place], [address] WBC (Bld) [#/Vol] 14.7 10*3/uL High 4.4-11.0 [facility] Comment on above: Performed By: #### L 100.0100, L500.2500 #### [facility] [address] [place], [address] CTA Chest W/WO Contraston CTA Chest W/WO Contrast [facility] Imaging Services [address] [place] [address] CTA Chest W/WO Contrast MR#: [id number] Acct: [id number] Name: ARTURO PEDERSEN Rep #: [id number] : 1940 M 83 From: Shayne Holt MD PCP: Dr. Shayne Zaidi MD Status: [facility] ER Study: CTA Chest W/WO Contrast Date of Exam: 02/07/24 Exam# [id number] Ordering Dr: [place] [id number] STUDY: CTA CHEST REASON FOR EXAM: Male, [...] 17:49 EST Reading Location ID and State: [address] [place] [address] Tel , Service support , CC: Dr. Alpa Jeffries DO; Dr. Shayne Zaidi MD Detail Supervisor: Signed Normal [facility] Chest 1 View (Portable)on Chest 1 View (Portable) [facility] Imaging Services [address] [place] [address] [id number] Chest 1 View (Portable) MR#: [id number] Acct: [id number] Name: ARTURO PEDERSEN Rep #: [id number] : 1940 M 83 From: Uriel Moody PCP: Dr. Shayne Zaidi MD Status: PRE ER Study: Chest 1 View (Portable) Date of Exam: 02/07/24 Exam# [id number] Ordering Dr: Yevgeniy Reis [id number] INDICATION: COUGH EXAMINATION/TECHNIQUE: X-RAY - XR Chest [...] Dr. Shayne Zaidi MD; ED PHYSICIAN PROVIDER Detail Supervisor: Signed Normal [facility] Emergency Department Summary on 02-07-2024 Emergency Department Summary [facility] Medical Records Department [address] [place] [id number] Emergency Department Summary 02/07/24 MR#: [id number] Acct: [id number] Name: ARTURO PEDERSEN Rep #: [id number] : 1940 83 From: Alpa Jeffries DO [...] other complaints or concerns at this time. [facility] Medical History Atherosclerosis of coronary artery of [place] heart without angina pectoris Prostate CA Stroke [...] or myalgias Integumen (more content not included)... [facility] M100.678on 02-07-2024 M100.678 Pending SARS-CoV-2 (COVID 19) Negative INFLUENZA A Negative INFLUENZA B Negative RSV PCR Negative Normal [facility] Comment on above: Performed By: #### M 100.678 ####[facility] [address] [place], [address] Urinalysis, Completeon 02-06 BACTERIA RARE Normal None Seen [facility] Comment on above: Order Comment: COLLE CTOR TO SPECIFY Performed By: #### L 400.0001 #### [facility] [address] [place], [address] EPI,SQUAMOUS 0-5 SEEN Normal 0-5 [facility] Comment on above: Order Comment: ALFONSO CTOR TO SPECIFY Performed By: #### L 400.0001 #### [facility] [address] [place], [address] Mucus Ql (Urine sed) RARE Normal [facility] Comment on above: Order Comment: COLLE CTOR TO SPECIFY Performed By: #### L 400.0001 #### [facility] [address] [place], [address] WBC 5-10 SEEN Normal 0-5 [facility] Comment on above: Order Comment: COLLE CTOR TO SPECIFY Performed By: #### L 400.0001 #### [facility] [address] [place], [address] RBC 0 SEEN Normal 0-5 [facility] Comment on above: Order Comment: COLLE CTOR TO SPECIFY Performed By: #### L 400.0001 #### [facility] [address] [place], [address] [facility] ([id number]) 1940 M Date Time Provider Department 12/21/23 PADDY ZAIDI During your visit today, we recorded the following information about you: Ge Will LPN 12/21/2023 3:29 PM Signed Received annual oxygen rx from [facility]. Placed in provider's inbox for review. Route to [place] fax Allergies As of Date: 12/21/2023 Noted Allergy Reaction ASPIRIN 04/19/2018 16 - Unknown OXYCODONE 04/19/2018 14 - Other: See Comments PERCODAN (OXYCODONE-ASPIRIN) 12/17/2004 1 - Mental Status Change Date Reviewed: 06/07/2023 Reviewed by: Ge Will LPN - Fully Assessed Reason for Visit: Orders [681] Cmt: [facility] [place] Prescriptions as of 12/21/2023 [...] Anxiety [F41.9] 12/23/2021 Atherosclerotic heart disease of [place] coronar*10/19/2017 Cerebrovascular accident (CVA) (HCC) [I63.9] 12/23/2021 [...] Status:Closed by GE WILL on 12/21/23 Normal [facility] Absolute lymphocyte countOrd ered By: Parker Metzger on 03-15-2023 Lymphocytes Auto (Unsp spec) [#/Vol] 0.80 10*3/uL 0.83-4.51 [facility] Automated blood erythrocyte count (number/volume)Ordered By: Parker Metzger on 03-15-2023 RBC (Bld) [#/Vol] 4.29 10*6/uL Low 4.6-6.2 [facility] Comment on above: Performed By: #### L 100.0100, L500.4050, L503.6005 #### [facility] [address] [place], [address] Automated blood hematocrit ( percentage)Ordered By: Parker Metzger on 03-15-2023 Hematocrit (Bld) [Volume fraction] 42.9 % Normal 40-54 [facility] Comment on above: Performed By: #### L 100.0100, L500.4050, L503.6005 #### [facility] [address] [place], [address] Automated lymphocyte count a s percentage of total leukocytesOrdered By: Parker Metzger on 03-15-2023 Lymphocytes/100 WBC Auto (Unsp spec) 8.8 % 19-41 [facility] Basophil percentageOrdered B y: Parker Metzger on 03-15-2023 Lactate [Moles/Vol] 1.7 mmol/L Normal 0.4-1.9 [facility] Comment on above: Order Comment: Y Performed By: #### L 100.0100, L500.4050, L503.6005 #### [facility] [address] [place], [address] Bilirubin [Mass/Vol] 0.60 mg/dL Normal 0.20-1.00 [facility] Comment on above: For patients on eltr ombopag therapy, use of Dimension [place] TBIL is not recommended. Result Comment: For patients on eltrombopag therapy, use of Dimension [place] TBIL is not recommended. Performed By: #### L 100.0100, L500.4050, L503.6005 #### [facility] [address] [place], [address] Chloride [Moles/Vol] 107 mmol/L Normal 98-107 [facility] Comment on above: Performed By: #### L 100.0100, L500.4050, L503.6005 #### [facility] [address] [place], [address] Glucose [Mass/Vol] 110 mg/dL High 74-106 [facility] Comment on above: Fasting Glucose resu lt from 100 to 125 mg/dL suggests IMPAIRED HOMEOSTASIS per A.D.A. criteria. Result Comment: Fast ing Glucose result from 100 to 125 mg/dL suggests IMPAIRED HOMEOSTASIS per A.D.A. criteria. Performed By: #### L 100.0100, L500.4050, L503.6005 #### [facility] [address] [place], [address] Potassium [Moles/Vol] 4.0 mmol/L Normal 3.5-5.1 [facility] Comment on above: Performed By: #### L 100.0100, L500.4050, L503.6005 #### [facility] [address] [place], [address] Sodium [Moles/Vol] 137 mmol/L Normal 136-145 [facility] Comment on above: Performed By: #### L 100.0100, L500.4050, L503.6005 #### [facility] [address] [place], [address] Basophils/100 WBC (Bld) 0.7 % Normal 0-1 [facility] Comment on above: Performed By: #### L 100.0100, L500.4050, L503.6005 #### [facility] [address] [place], [address] Eosinophils/100 WBC (Bld) 2.1 % Normal 0-5 [facility] Comment on above: Performed By: #### L 100.0100, L500.4050, L503.6005 #### [facility] [address] [place], [address] Hemoglobin (Bld) [Mass/Vol] 13.1 g/dL Normal 13.0-16.5 [facility] Comment on above: Performed By: #### L 100.0100, L500.4050, L503.6005 #### [facility] [address] [place], [address] Monocytes/100 WBC (Bld) 6.8 % Normal 0-10 [facility] Comment on above: Performed By: #### L 100.0100, L500.4050, L503.6005 #### [facility] [address] [place], [address] Neutrophils/100 WBC (Bld) 80.9 % High 47-70 [facility] Comment on above: Performed By: #### L 100.0100, L500.4050, L503.6005 #### [facility] [address] [place], [address] WBC (Bld) [#/Vol] 9.1 10*3/uL Normal 4.4-11.0 [facility] Comment on above: Performed By: #### L 100.0100, L500.4050, L503.6005 #### [facility] [address] [place], [address] Neutrophils (Bld) [#/Vol] 7.4 10*3/uL 2.0-7.7 [facility] Protein [Mass/Vol] 7.0 g/dL 6.4-8.2 [facility] CBC W/Diff, Automatedon 02-0 Absolute Lymph 0.80 X10 3/uL Low 0.83-4.51 [facility] Comment on above: Performed By: #### L 100.0100, L500.4050, L503.6005 #### [facility] [address] [place], [address] Absolute Neut 7.4 X10 3/uL Normal 2.0-7.7 [facility] Comment on above: Performed By: #### L 100.0100, L500.4050, L503.6005 #### [facility] [address] [place], [address] IG% 0.700 Normal 0.0-0.9 [facility] Comment on above: Result Comment: IG% - Immature Granulocytes (promyelocytes, myelocytes and metamyelocytes) > 1% indicates that a LEFT SHIFT is Present. Performed By: #### L 100.0100, L500.4050, L503.6005 #### [facility] [address] [place], [address] Lymphocytes/100 WBC (Bld) 8.8 % Low 19-41 [facility] Comment on above: Performed By: #### L 100.0100, L500.4050, L503.6005 #### [facility] [address] [place], [address] Nucleated RBC (Bld) [#/Vol] 0 10*3/uL Normal 0-5 [facility] Comment on above: Performed By: #### L 100.0100, L500.4050, L503.6005 #### [facility] [address] [place], [address] RDW SD 48.4 fl High 35.1-43.9 [facility] Comment on above: Performed By: #### L 100.0100, L500.4050, L503.6005 #### [facility] [address] [place], [address] CBC W/Diff, AutomatedOrdered By: Parker Metzger on 03-15-2023 MCH (RBC) [Entitic mass] 30.5 pg Normal 27.0-32.0 [facility] Comment on above: Performed By: #### L 100.0100, L500.4050, L503.6005 #### [facility] [address] [place], [address] MCHC (RBC) [Mass/Vol] 30.5 g/dL Low 32-36 [facility] Comment on above: Performed By: #### L 100.0100, L500.4050, L503.6005 #### [facility] [address] [place], [address] Platelet mean volume (Bld) [Entitic vol] 9.9 fL Normal 6.2-12.0 [facility] Comment on above: Performed By: #### L 100.0100, L500.4050, L503.6005 #### [facility] [address] [place], [address] Platelets (Bld) [#/Vol] 135 10*3/uL Low 150-450 [facility] Comment on above: Performed By: #### L 100.0100, L500.4050, L503.6005 #### [facility] [address] [place], [address] Chest PA and Lateralon 03-15 Chest PA and Lateral [facility] Imaging Services [address] [place] [address] Chest PA and Lateral MR#: [id number] Acct: [id number] Name: ARTURO PEDERSEN Rep #: [id number] : 1940 M 82 From: Domingo caballero MD PCP: Dr. Shayne Zaidi MD Status: REG ER Study: Chest PA and Lateral Date of Exam: 03/15/23 Exam# [id number] Ordering Dr: [place] [id number] STUDY: X-RAY CHEST REASON FOR EXAM: Male, [...] 14:57 EST Reading Location ID and State: [address] [place] [address] , Service support , CC: Dr. Shayne Zaidi MD; Dr. Parker Metzger MD Detail Supervisor: Signed Normal [facility] Comprehensive Metabolic Prof ilon 03-15-2023 Albumin [Mass/Vol] 3.5 g/dL Normal 3.2-5.0 [facility] Comment on above: Performed By: #### L 100.0100, L500.4050, L503.6005 #### [facility] [address] [place], [address] ALK P 116 U/L Normal 45-117 [facility] Comment on above: Performed By: #### L 100.0100, L500.4050, L503.6005 #### [facility] [address] [place], [address] AST [Catalytic activity/Vol] 11 U/L Low 15-37 [facility] Comment on above: Performed By: #### L 100.0100, L500.4050, L503.6005 #### [facility] [address] [place], [address] BUN/CRE 28.5 RATIO High 10-20 [facility] Comment on above: Performed By: #### L 100.0100, L500.4050, L503.6005 #### [facility] [address] [place], [address] CA,Total 8.6 mg/dL Normal 8.5-10.1 [facility] Comment on above: Performed By: #### L 100.0100, L500.4050, L503.6005 #### [facility] [address] [place], [address] ECRCL 83.26 ml/min Normal [facility] Comment on above: Performed By: #### L 100.0100, L500.4050, L503.6005 #### [facility] [address] [place], [address] EST GFR - AA 131 mL/min Normal >60 [facility] Comment on above: Result Comment: Afri can [place] GFR Calc Performed By: #### L 100.0100, L500.4050, L503.6005 #### [facility] [address] [place], [address] GAP 2 Low 5-15 [facility] Comment on above: Performed By: #### L 100.0100, L500.4050, L503.6005 #### [facility] [address] [place], [address] GFR/1.73 sq M.predicted among non-blacks MDRD (S/P/Bld) [Vol rate/Area] 108 mL/min/{1.73_m2} Normal >60 [facility] Comment on above: Result Comment: Non- GFR Calc Performed By: #### L 100.0100, L500.4050, L503.6005 #### [facility] [address] [place], [address] T PROT 7.0 g/dL Normal 6.4-8.2 [facility] Comment on above: Performed By: #### L 100.0100, L500.4050, L503.6005 #### [facility] [address] [place], [address] Comprehensive Metabolic Prof ilOrdered By: Parker Metzger on 03-15-2023 Albumin/Globulin [Mass ratio] 1.0 {ratio} Normal 0.9-2.4 [facility] Comment on above: Performed By: #### L 100.0100, L500.4050, L503.6005 #### [facility] [address] [place], [address] ALT [Catalytic activity/Vol] 20 U/L Normal 16-61 [facility] Comment on above: Performed By: #### L 100.0100, L500.4050, L503.6005 #### [facility] [address] [place], [address] CO2 [Moles/Vol] 28.0 mmol/L Normal 21.0-32.0 [facility] Comment on above: Performed By: #### L 100.0100, L500.4050, L503.6005 #### [facility] [address] [place], [address] Globulin (S) [Mass/Vol] 3.5 g/dL Normal 2.2-4.2 [facility] Comment on above: Performed By: #### L 100.0100, L500.4050, L503.6005 #### [facility] [address] [place], [address] Determination of erythrocyte mean corpuscular volume (MCV)Ordered By: Parker Metzger on 03-15-2023 MCV (RBC) [Entitic vol] 100.0 fL High 80-94 [facility] Comment on above: Performed By: #### L 100.0100, L500.4050, L503.6005 #### [facility] [address] [place], [address] Emergency Department Summary on 03-15-2023 Emergency Department Summary [facility] Medical Records Department [address] [place] [address] Emergency Department Summary 03/15/23 MR#: [id number] Acct: [id number] Name: ARTURO PEDERSEN Rep #: [id number] : 1940 82 From: Parker Metzger MD [...] Recent Illness/Hospitalization : No PFSH [facility] Medical History Atherosclerosis of coronary artery of [place] heart without angina pectoris Central sleep apnea [...] use t (more content not included)... Normal [facility] Erythrocyte distribution wid th ratioOrdered By: Parker Metzger on 03-15-2023 Erythrocyte distribution width (RBC) [Ratio] 13.2 % Normal 11.6-14.6 [facility] Comment on above: Performed By: #### L 100.0100, L500.4050, L503.6005 #### [facility] [address] [place], [place], [address] Erythrocyte distribution wid th standard deviationOrdered By: Parker Metzger on 03-15-2023 Erythrocyte distribution width (RBC) [Entitic vol] 48.4 fL 35.1-43.9 [facility] Immature granulocytes/100 WB C Auto (Bld)Ordered By: Parker Metzger on 03-15-2023 Immature granulocytes/100 WBC (Bld) 0.700 % 0.0-0.9 [facility] Comment on above: IG% - Immature Granu locytes (promyelocytes, myelocytes and metamyelocytes) > 1% indicates that a LEFT SHIFT is Present. Laboratory - Chemistry and C hemistry - challengeOrdered By: Parkeramira Metzger on 03-15-2023 ALP [Catalytic activity/Vol] 116 U/L 45-117 [facility] Urea nitrogen/Creatinine [Mass ratio] 28.5 mg/mg 10-20 [facility] - Hematology and Cell countsOrdered By: Parker Metzger on 03-15-2023 Nucleated RBC/100 WBC (Bld) [Ratio] 0 % 0-5 [facility] - Microbiology an d Antimicrobial susceptibilityOrdered By: Parkeramira Metzger on 03-15-2023 SARS-CoV-2 (COVID-19) RNA NIURKA+probe Ql (Unsp spec) [facility] M100.678on 03-15-2023 M100.678 SARS-CoV-2 (COVID 19 ) Negative INFLUENZA A Negative INFLUENZA B Negative RSV PCR Negative Normal [facility] Comment on above: Performed By: #### M 100.678 ####[facility] [address] [place], [place], [id number] No Panel InformationOrdered By: Parkeramira Metzger on 03-15-2023 Estimated Creatinine Clearance Calc 83.26 ml/min [facility] Estimated GFR (MDRD) Amer 131 mL/min >60 [facility] Comment on above: GFR Calc Estimated GFR (MDRD) Non-Af Amer 108 mL/min >60 [facility] Comment on above: Non- GFR Calc Serum or plasma calcium regan urement (mass/volume)Ordered By: Parkeramira Metzger on 03-15-2023 Calcium [Mass/Vol] 8.6 mg/dL 8.5-10.1 [facility] Serum or plasma creatinine m easurement (mass/volume)Ordered By: Parker Metzger on 03-15-2023 Creatinine [Mass/Vol] 0.74 mg/dL Normal 0.70-1.30 [facility] Comment on above: The validity of the calculated GFR & GFRAA in patients over 70 years has not been determined. Clinical correlation is essential. Result Comment: The validity of the calculated GFR GFRAA in patients over 70 years has not been determined. Clinical correlation is essential. Performed By: #### L 100.0100, L500.4050, L503.6005 #### [facility] [address] [place], [place], [address] Serum or plasma urea nitroge n measurement (mass/volume)Ordered By: Parker Metzger on 03-15-2023 Urea nitrogen [Mass/Vol] 21 mg/dL High 7-18 [facility] Comment on above: Performed By: #### L 100.0100, L500.4050, L503.6005 #### [facility] [address] [place], [place], [address] Thin prep Papanicolaou smear with manual screeningOrdered By: Parker Metzger on 03-15-2023 Thin prep Papanicolaou smear with manual screening 3.5 g/dL 3.2-5.0 [facility] Thin prep Papanicolaou smear with manual screening 11 U/L 15-37 [facility] Thin prep Papanicolaou smear with manual screening 2 5-15 [facility] XR Chest PA and Lateralon IMPRESSION: New atelectasis and/or early infiltrate in the right middle lobe. Follow-up to document resolution Detail Supervisor: PSCB Transcribe Date/Time: May 24 2022 1:40P Dictated by : SATISH PATEL MD This examination was interpreted and the report reviewed and electronically signed by: SATISH PATEL MD on May 24 2022 1:46PM [facility] DIVISION OF RADIOLOGY * * *Final Report* * * DATE OF EXAM: May 22 2022 11:33AM WOX 5291 - XR CHEST 2V FRONTAL/LAT / PROCEDURE REASON: multiple diagnoses * * * * Physician Interpretation * * * * EXAMINATION: CHEST RADIOGRAPH (2 VIEW FRONTAL & LATERAL) CLINICAL HISTORY: Coronary artery disease involving [place] coronary artery of [place] heart with angina pectoris (HCC) Paroxysmal atrial [...] soft tissues: Unremarkable. DIVISION OF RADIOLOGY Provider, [facility] - 05/24/2022 * * *Final Report* * * DATE OF EXAM: May 22 2022 11:33AM WOX 5291 - XR CHEST 2V FRONTAL/LAT / PROCEDURE REASON: multiple diagnoses * * * * Physician Interpretation * * * * EXAMINATION: CHEST RADIOGRAPH (2 VIEW FRONTAL & LATERAL) CLINICAL HISTORY: Coronary artery disease involving [place] coronary artery of [place] heart with angina pectoris (HCC) Paroxysmal atrial [...] right middle lobe. Follow-up to document resolution Detail Supervisor: FATOUMATA Transcribe Date/Time: May 24 2022 1:40P Dictated by : SATISH PATEL MD This examination was interpreted and the report reviewed and electronically signed by: SATISH PATEL MD on May 24 2022 1:46PM EST [facility] XR Chest PA and LateralOrder ed By: Ccf Provider on 05-24-2022 [facility] Comprehensive metabolic 2000 panelon 05-22-2022 Albumin [Mass/Vol] 4.2 g/dL 3.9 - 4.9 g/dL [facility] ALP [Catalytic activity/Vol] 120 U/L High 38 - 113 U/L [facility] ALT [Catalytic activity/Vol] 9 U/L Low 10 - 54 U/L [facility] Anion gap [Moles/Vol] 12 mmol/L 9 - 18 mmol/L [facility] AST [Catalytic activity/Vol] 17 U/L 14 - 40 U/L [facility] Bilirubin [Mass/Vol] 1.1 mg/dL 0.2 - 1 .3 mg/dL [facility] Calcium [Mass/Vol] 10.0 mg/dL 8.5 - 10. 2 mg/dL [facility] Chloride [Moles/Vol] 102 mmol/L 97 - 10 5 mmol/L [facility] CO2 [Moles/Vol] 28 mmol/L 22 - 30 mmol/L [facility] Creatinine [Mass/Vol] 0.83 mg/dL 0.73 - 1.22 mg/dL [facility] Estimated Glomerular Filtration Rate 87 mL/min/1.73m >=60 mL/min/1.73m [facility] Glucose [Mass/Vol] 119 mg/dL High 74 - 99 mg/dL [facility] Potassium [Moles/Vol] 4.8 mmol/L 3.7 - 5.1 mmol/L [facility] Protein [Mass/Vol] 7.3 g/dL 6.3 - 8.0 g/dL [facility] Sodium [Moles/Vol] 142 mmol/L 136 - 144 mmol/L [facility] Urea nitrogen [Mass/Vol] 26 mg/dL High 9 - 24 mg/d L [facility] Lipid 1996 panelon 3 Cholesterol [Mass/Vol] 115 mg/dL <200 mg/dL [facility] Cholesterol in HDL [Mass/Vol] 39 mg/dL Low >39 mg/dL [facility] Cholesterol in LDL [Mass/Vol] 60 mg/dL <100 mg/dL [facility] Cholesterol in LDL/Cholesterol in HDL [Mass ratio] 1.54 {ratio} <2.54 [facility] Cholesterol in VLDL [Mass/Vol] 16 mg/dL <30 mg/dL [facility] Cholesterol non HDL [Mass/Vol] 76 mg/dL <130 mg/dL [facility] Cholesterol.total/Choles terol in HDL [Mass ratio] 2.95 {ratio} <5.10 [facility] Fasting Time 0 hrs [facility] Triglyceride [Mass/Vol] 80 mg/dL <150 mg/dL [facility] TSH BLDon 05-22-2022 TSH Qn 1.440 m[IU]/L 0.270 - 4.200 mIU/L [facility] XR Chest PA and Lateralon Radiology Study observation (narrative) [facility] CBC panel Auto (Bld)on 05-21 Erythrocyte distribution width (RBC) [Ratio] 13.4 % 11.5 - 15.0 % [facility] Hematocrit (Bld) [Volume fraction] 50.5 % 39.0 - 51.0 % [facility] Hemoglobin (Bld) [Mass/Vol] 15.9 g/dL 13.0 - 17.0 g/dL [facility] MCH (RBC) [Entitic mass] 30.3 pg 26. 0 - 34.0 pg [facility] MCHC (RBC) [Mass/Vol] 31.5 g/dL 30.5 - 36.0 g/dL [facility] MCV (RBC) [Entitic vol] 96.4 fL 80.0 - 100.0 fL [facility] Nucleated RBC (Bld) [#/Vol] <0.01 k/uL [facility] Platelet mean volume (Bld) [Entitic vol] 10.2 fL 9.0 - 12.7 fL [facility] Platelets (Bld) [#/Vol] 166 10*3/uL 150 - 400 k/uL [facility] RBC (Bld) [#/Vol] 5.24 10*6/uL 4.20 - 6.0 0 m/uL [facility] WBC (Bld) [#/Vol] 9.40 10*3/uL 3.70 - 11. 00 k/uL [facility] Absolute lymphocyte counton 12-18-2021 Lymphocytes Auto (Unsp spec) [#/Vol] 0.33 10*3/uL 0.83-4.51 [facility] Work Phone: Basophil percentageon 2021 Basophils/100 WBC (Bld) 0.1 % 0-1 [facility] Work Phone: Bilirubin [Mass/Vol] 0.50 mg/dL 0.20-1.00 [facility] Work Phone: Comment on above: For patients on eltr ombopag therapy, use of Dimension [place] TBIL is not recommended. Chloride [Moles/Vol] 101 mmol/L 98-107 [facility] Work Phone: Eosinophils/100 WBC (Bld) 0.0 % 0-5 [facility] Work Phone: Glucose [Mass/Vol] 173 mg/dL 74-106 [facility] Work Phone: Comment on above: Fasting Glucose resu lt greater than or equal to 126 mg/dL suggests DIABETES MELLITUS per A.D.A. criteria. Neutrophils (Bld) [#/Vol] 13.8 10*3/uL 2.0-7.7 [facility] Work Phone: Neutrophils/100 WBC (Bld) 92.7 % 47-70 [facility] Work Phone: Potassium [Moles/Vol] 4.1 mmol/L 3.5-5.1 [facility] Work Phone: Protein [Mass/Vol] 6.9 g/dL 6.4-8.2 [facility] Work Phone: Sodium [Moles/Vol] 138 mmol/L 136-145 [facility] Work Phone: WBC (Bld) [#/Vol] 14.9 10*3/uL 4.4-11.0 [facility] Work Phone: Blood erythrocytes count (nu mber/volume)on 12-18-2021 RBC (Bld) [#/Vol] 4.57 10*6/uL 4.6-6.2 [facility] Work Phone: Blood hemoglobin measurement (mass/volume)on 12-18-2021 Hemoglobin (Bld) [Mass/Vol] 14.3 g/dL 13.0-16.5 [facility] Work Phone: Blood lymphocytes/100 leukoc yteson 12-18-2021 Lymphocytes/100 WBC (Bld) 2.2 % 19-41 [facility] Work Phone: Blood monocytes/100 leukocyt eson 12-18-2021 Monocytes/100 WBC (Bld) 4.1 % 0-10 [facility] Work Phone: Blood platelet mean volumeon 12-18-2021 Platelet mean volume (Bld) [Entitic vol] 8.6 fL 6.2-12.0 [facility] Work Phone: Determination of erythrocyte mean corpuscular volume (MCV)on 12-18-2021 MCV (RBC) [Entitic vol] 94.1 fL 80-94 [facility] Work Phone: Hematocrit Auto (Bld) [Volum e fraction]on 12-18-2021 Hematocrit (Bld) [Volume fraction] 43.0 % 40-54 [facility] Work Phone: Laboratory - Chemistry and C hemistry - challengeon 12-18-2021 ALP [Catalytic activity/Vol] 155 U/L 45-117 [facility] Work Phone: ALT [Catalytic activity/Vol] 267 U/L 16-61 [facility] Work Phone: CO2 [Moles/Vol] 32.0 mmol/L 21.0-32.0 [facility] Work Phone: Globulin (S) [Mass/Vol] 4.3 g/dL 2.2-4.2 [facility] Work Phone: Urea nitrogen/Creatinine [Mass ratio] 60.2 mg/mg 10-20 [facility] Work Phone: Laboratory - Hematology and Cell countson 12-18-2021 Erythrocyte distribution width (RBC) [Entitic vol] 44.7 fL 35.1-43.9 [facility] Work Phone: Erythrocyte distribution width (RBC) [Ratio] 13.0 % 11.6-14.6 [facility] Work Phone: Immature granulocytes/100 WBC (Bld) 0.900 % 0.0-0.9 [facility] Work Phone: Comment on above: IG% - Immature Granu locytes (promyelocytes, myelocytes and metamyelocytes) > 1% indicates that a LEFT SHIFT is Present. MCH (RBC) [Entitic mass] 31.3 pg 27.0-32.0 [facility] Work Phone: Nucleated RBC/100 WBC (Bld) [Ratio] 0 % 0-5 [facility] Work Phone: MCHC Auto (RBC) [Mass/Vol]on 12-18-2021 MCHC (RBC) [Mass/Vol] 33.3 g/dL 32-36 [facility] Work Phone: No Panel Informationon 12-18 Estimated Creatinine Clearance Calc 60.66 ml/min [facility] Work Phone: Estimated GFR (MDRD) Amer 166 mL/min >60 [facility] Work Phone: Comment on above: GFR Calc Estimated GFR (MDRD) Non-Af Amer 138 mL/min >60 [facility] Work Phone: Comment on above: Non- GFR Calc Platelets bldon 12-18-2021 Platelets (Bld) [#/Vol] 226 10*3/uL 150-450 [facility] Work Phone: Serum or plasma albumin regan urement (mass/volume)on 12-18-2021 Albumin [Mass/Vol] 2.6 g/dL 3.2-5.0 [facility] Work Phone: Serum or plasma albumin/glob ulin mass ratioon 12-18-2021 Albumin/Globulin [Mass ratio] 0.6 {ratio} 0.9-2.4 [facility] Work Phone: Serum or plasma calcium regan urement (mass/volume)on 12-18-2021 Calcium [Mass/Vol] 8.7 mg/dL 8.5-10.1 [facility] Work Phone: Serum or plasma creatinine m easurement (mass/volume)on 12-18-2021 Creatinine [Mass/Vol] 0.60 mg/dL 0.70-1.30 [facility] Work Phone: Comment on above: The validity of the calculated GFR & GFRAA in patients over 70 years has not been determined. Clinical correlation is essential. Serum or plasma urea nitroge n measurement (mass/volume)on 12-18-2021 Urea nitrogen [Mass/Vol] 36 mg/dL 7-18 [facility] Work Phone: Thin prep Papanicolaou smear with manual screeningon 12-18-2021 Thin prep Papanicolaou smear with manual screening 138 U/L 15-37 [facility] Work Phone: Thin prep Papanicolaou smear with manual screening 5 5-15 [facility] Work Phone: Blood manual differential co mment interpretation (narrative result)on 12-15-2021 Manual differential comment Afshin (Bld) [Interp] SCANNED [facility] Work Phone: Laboratory - Chemistry and C hemistry - challengeon 12-15-2021 Natriuretic peptide B (Bld) [Mass/Vol] 163.1 pg/mL 0-100 [facility] Work Phone: No Panel Informationon 12-15 Thyroid Stimulating Hormone (TSH) 0.52 uIU/mL 0.358-3.74 [facility] Work Phone: Absolute lymphocyte counton 12-14-2021 Lymphocytes Auto (Unsp spec) [#/Vol] 0.43 10*3/uL 0.83-4.51 [facility] Work Phone: Basophil percentageon 2021 Basophils/100 WBC (Bld) 0.2 % 0-1 [facility] Work Phone: Chloride [Moles/Vol] 101 mmol/L 98-107 [facility]: Eosinophils/100 WBC (Bld) 0.0 % 0-5 [facility] Work Phone: Glucose [Mass/Vol] 108 mg/dL 74-106 [facility] Work Phone: Comment on above: Fasting Glucose resu lt from 100 to 125 mg/dL suggests IMPAIRED HOMEOSTASIS per A.D.A. criteria. Neutrophils (Bld) [#/Vol] 14.8 10*3/uL 2.0-7.7 [facility] Work Phone: Neutrophils/100 WBC (Bld) 90.8 % 47-70 [facility] Work Phone: Potassium [Moles/Vol] 4.1 mmol/L 3.5-5.1 [facility] Work Phone: Sodium [Moles/Vol] 135 mmol/L 136-145 [facility] Work Phone: WBC (Bld) [#/Vol] 16.3 10*3/uL 4.4-11.0 [facility] Work Phone: Blood erythrocytes count (nu mber/volume)on 12-14-2021 RBC (Bld) [#/Vol] 4.32 10*6/uL 4.6-6.2 [facility] Work Phone: Blood hemoglobin measurement (mass/volume)on 12-14-2021 Hemoglobin (Bld) [Mass/Vol] 13.3 g/dL 13.0-16.5 [facility] Work Phone: [phone] Blood lymphocytes/100 leukoc yteson 12-14-2021 Lymphocytes/100 WBC (Bld) 2.6 % 19-41 [facility] Work Phone: [phone] Blood monocytes/100 leukocyt eson 12-14-2021 Monocytes/100 WBC (Bld) 5.6 % 0-10 [facility] Work Phone: [phone] Blood platelet mean volumeon 12-14-2021 Platelet mean volume (Bld) [Entitic vol] 8.8 fL 6.2-12.0 [facility] Work Phone: Determination of erythrocyte mean corpuscular volume (MCV)on 12-14-2021 MCV (RBC) [Entitic vol] 95.1 fL 80-94 [facility] Work Phone: Hematocrit Auto (Bld) [Volum e fraction]on 12-14-2021 Hematocrit (Bld) [Volume fraction] 41.1 % 40-54 [facility] Work Phone: Laboratory - Chemistry and C hemistry - challengeon 12-14-2021 CO2 [Moles/Vol] 30.0 mmol/L 21.0-32.0 [facility] Work Phone: Urea nitrogen/Creatinine [Mass ratio] 37.1 mg/mg 10-20 [facility] Work Phone: Laboratory - Hematology and Cell countson 12-14-2021 Erythrocyte distribution width (RBC) [Entitic vol] 47.7 fL 35.1-43.9 [facility] Work Phone: Erythrocyte distribution width (RBC) [Ratio] 13.5 % 11.6-14.6 [facility] Work Phone: Immature granulocytes/100 WBC (Bld) 0.800 % 0.0-0.9 [facility] Work Phone: Comment on above: IG% - Immature Granu locytes (promyelocytes, myelocytes and metamyelocytes) > 1% indicates that a LEFT SHIFT is Present. MCH (RBC) [Entitic mass] 30.8 pg 27.0-32.0 [facility] Work Phone: Nucleated RBC/100 WBC (Bld) [Ratio] 0 % 0-5 [facility] Work Phone: MCHC Auto (RBC) [Mass/Vol]on 12-14-2021 MCHC (RBC) [Mass/Vol] 32.4 g/dL 32-36 [facility] Work Phone: No Panel Informationon 12-14 Troponin I High Sensitivity 343 pg/mL 3.0-78.0 [facility] Work Phone: Comment on above: Critical Result(s) C alled at: 22:53:05 12/14/2021 by: Lacie Herrera. Results read back by same. Please Note: New Test Units and Gender Specific Reference Ranges. For more information see Policy Stat Procedure [place] High Sensitivity Troponin (TNIH) and attachments. D-Dimer Quantitative (PE/DVT) 1.54 FEU/ug/m 0.27-0.49 [facility] Work Phone: Comment on above: D-Dimer ELEVATED (>0 .49): Additional studies and clinicalassessments are indicated to conclude diagnosis of:Deep Vein Thrombosis (DVT) or Pulmonary Embolism (PE)CRITICAL VALUE VERIFIED. CALLED TO ROSCOE BRIZUELA12/14/21 190 Samson Walters.RESULTS READ BACK BY SAME . Estimated Creatinine Clearance Calc 62.53 ml/min [facility] Work Phone: Estimated GFR (MDRD) Amer 95 mL/min >60 [facility] Work Phone: Comment on above: GFR Calc Estimated GFR (MDRD) Non-Af Amer 79 mL/min >60 [facility] Work Phone: Comment on above: Non- GFR Calc Troponin I High Sensitivity 522 pg/mL 3.0-78.0 [facility] Work Phone: Comment on above: Critical Result(s) C alled at: 16:42:10 12/14/2021 by: Lacie GORMANccluclaudia. Results read back by same. Please Note: New Test Units and Gender Specific Reference Ranges. For more information see Policy Stat Procedure [place] High Sensitivity Troponin (TNIH) and attachments. Platelets bldon 12-14-2021 Platelets (Bld) [#/Vol] 199 10*3/uL 150-450 [facility] Work Phone: Serum or plasma calcium regan urement (mass/volume)on 12-14-2021 Calcium [Mass/Vol] 9.2 mg/dL 8.5-10.1 [facility] Work Phone: Serum or plasma creatinine m easurement (mass/volume)on 12-14-2021 Creatinine [Mass/Vol] 0.97 mg/dL 0.70-1.30 [facility] Work Phone: Comment on above: The validity of the calculated GFR & GFRAA in patients over 70 years has not been determined. Clinical correlation is essential. Serum or plasma urea nitroge n measurement (mass/volume)on 12-14-2021 Urea nitrogen [Mass/Vol] 36 mg/dL 7-18 [facility] Work Phone: Thin prep Papanicolaou smear with manual screeningon 12-14-2021 Thin prep Papanicolaou smear with manual screening 4 - [facility] Work Phone: NM CARDIAC PERF STRESS/PHARM on [...] 60 minutes later. See administered doses below. [facility] Date of service: 06/19/2018 9:36:42 AM Ordering [...] normal sinus rhythm. Stress complications: none. Final Detail Supervisor: LAURA Transcrimagdalena Date/Time: Jun 19 2018 9:36A Dictated by : ROSALINO MURRAY DO This examination was interpreted and the report reviewed and electronically signed by: ROSALINO MURRAY DO on Jun 19 2018 4:55PM EST [id number] Normal [facility] NUCLEAR STRESS LEXISCAN (CAR D)on 06-19-2018 NUCLEAR STRESS LEXISCAN (CARD) NAME : ARTURO PEDERSEN PID : [id number] : 1940 Gender : Male Race : ORD : [id number] Procedure Date : Jun 19 2018 10:44:58 [...] Protocol Test Reason : Pre-Op Evaluation Location :[facility] Overread By : ROSALINO MURRAY D.O. Edited By : Shraddha Cha Referred By : SHAYNE CEDEÑO Acquired by : Shraddha Cha [facility] 06-16-2018 [facility] Telephone (CDLBME) ARTURO PEDERSEN ([id number]) 1940 M Date Time Provider Department 06/16/18 [...] Fully Assessed Reason for Visit: Reminder Call [[id number]] Prescriptions as of 06/16/2018 Sig: POTASSIUM CHLORIDE [...] Take 1 tablet by mouth twice * VIKSA ASPIRIN 325 MG TABLET Take one(1) tablet [...] Encounter Status:Closed by NATALIA LIZ on 06/16/18 [facility] COVID-19 virus antigen assay SARS-CoV-2 (COVID-19) Ag IA.rapid Ql (Resp) [facility] Work Phone: Legionella pneumophila ag Legionella Antigen Legionella Antigen [facility] Work Phone: No Panel Information Streptococcus pneumoniae Antigen (M [facility] Work Phone: Vital Signs Date Time Vital Sign Value Performing Clinician Facility 07-13-2024 16:53-0400 Diastolic blood pressure 76 mm[Hg] Paddy Zaidi MD Work Phone: [facility] 07-13-2024 16:53-0400 Heart rate 98 /min Paddy Zaidi MD Work Phone: [facility] 07-13-2024 16:53-0400 Systolic blood pressure 125 mm[Hg] Paddy Zaidi MD Work Phone: [facility] 03-27-2024 13:52-0500 Diastolic blood pressure 80 mm[Hg] Flavia Smith MEDICAL FILE CLERK.MONOTYPE CASTER Work Phone: [facility] 03-27-2024 13:52-0500 Heart rate 90 /min Flavia Click MEDICAL FILE CLERK.MONOTYPE CASTER Work Phone: [facility] 03-27-2024 13:52-0500 Respiratory rate 18 /min Flavia Click MEDICAL FILE CLERK.MONOTYPE CASTER Work Phone: [facility] 03-27-2024 13:52-0500 SaO2% (BldA) [Mass fraction] 95 % Flavia Click MEDICAL FILE CLERK.MONOTYPE CASTER Work Phone: [facility] 03-27-2024 13:52-0500 Systolic blood pressure 122 mm[Hg] Flavia Click MEDICAL FILE CLERK.MONOTYPE CASTER Work Phone: [facility] 03-27-2024 13:47-0500 Heart rate 107 /min Pulm Wstr Work Phone: [facility] 03-27-2024 13:47-0500 SaO2% (BldA) [Mass fraction] 96 % Pulm Wstr Work Phone: [facility] Comment on above: RA resting 03-05-2024 15:07-0500 Body height 171.5 cm Raina Huynh MD Work Phone: [facility] 03-05-2024 15:07-0500 Body mass index (BMI) [Ratio] 32.69 kg/m2 Raina Huynh MD Work Phone: [facility] 03-05-2024 15:07-0500 Body weight 96.16 kg Raina Huynh MD Work Phone: [facility] 03-05-2024 15:07-0500 Diastolic blood pressure 68 mm[Hg] Raina Huynh MD Work Phone: [facility] 03-05-2024 15:07-0500 Heart rate 112 /min Raina Huynh MD Work Phone: [facility] 03-05-2024 15:07-0500 Respiratory rate 14 /min Raina Huynh MD Work Phone: [facility] 03-05-2024 15:07-0500 SaO2% (BldA) [Mass fraction] 96 % Raina Huynh MD Work Phone: [facility] 03-05-2024 15:07-0500 Systolic blood pressure 122 mm[Hg] Raina Huynh MD Work Phone: [facility] 03-05-2024 14:42-0500 Body height 171.5 cm Pulm Wstr Work Phone: [facility] 03-05-2024 14:42-0500 Body mass index (BMI) [Ratio] 32.69 kg/m2 Pulm Wstr Work Phone: [facility] 03-05-2024 14:42-0500 Body weight 96.16 kg Pulm Wstr Work Phone: [facility] 03-05-2024 14:42-0500 Heart rate 112 /min Pulm Wstr Work Phone: [facility] 03-05-2024 14:42-0500 Respiratory rate 14 /min Pulm Wstr Work Phone: [facility] 03-05-2024 14:42-0500 SaO2% (BldA) [Mass fraction] 96 % Pulm Wstr Work Phone: [facility] Comment on above: 2L pulse dose 02-14-2024 14:06-0500 Diastolic blood pressure 78 mm[Hg] Hever Tanya MEDICAL FILE CLERK.MONOTYPE CASTER Work Phone: [facility] 02-14-2024 14:06-0500 Heart rate 96 /min Hever Tanya MEDICAL FILE CLERK.MONOTYPE CASTER Work Phone: [facility] 02-14-2024 14:06-0500 Systolic blood pressure 132 mm[Hg] Hever Tanya MEDICAL FILE CLERK.MONOTYPE CASTER Work Phone: [facility] 06-07-2023 16:30-0400 Body height 180.3 cm Paddy Zaidi MD Work Phone: [facility] 06-07-2023 16:30-0400 Body mass index (BMI) [Ratio] 30.15 kg/m2 Paddy Zaidi MD Work Phone: [facility] 06-07-2023 16:30-0400 Body weight 98 kg Paddy Zaidi MD Work Phone: [facility] 06-07-2023 16:30-0400 Diastolic blood pressure 80 mm[Hg] Paddy Zaidi MD Work Phone: [facility] 06-07-2023 16:30-0400 Heart rate 82 /min Paddy Zaidi MD Work Phone: [facility] 06-07-2023 16:30-0400 SaO2% (BldA) [Mass fraction] 95 % Paddy Zaidi MD Work Phone: [facility] 06-07-2023 16:30-0400 Systolic blood pressure 138 mm[Hg] Paddy Zaidi MD Work Phone: [facility] 03-15-2023 15:52-0500 Diastolic blood pressure 100 mm[Hg] [facility] 03-15-2023 15:52-0500 Heart rate 106 /min [facility] 03-15-2023 15:52-0500 Respiratory rate 22 /min [facility] 03-15-2023 15:52-0500 SaO2% (BldA) [Mass fraction] 95 % [facility] 03-15-2023 15:52-0500 Systolic blood pressure 159 mm[Hg] [facility] 03-15-2023 14:10-0500 Body mass index (BMI) [Ratio] 29.9 kg/m2 [facility] 03-15-2023 14:10-0500 Body weight 97.4 kg [facility] 03-15-2023 13:17-0500 Body height 180.34 cm [facility] 03-15-2023 13:17-0500 Body temperature 98.5 [degF] [facility] 09-22-2022 22:00-0400 Body mass index (BMI) [Ratio] 27.9 kg/m2 [facility] 09-22-2022 22:00-0400 Body weight 91 kg [facility] 09-22-2022 21:47-0400 Heart rate 69 /min [facility] 09-22-2022 21:47-0400 Respiratory rate 16 /min [facility] 09-22-2022 21:47-0400 SaO2% (BldA) [Mass fraction] 97 % [facility] 09-22-2022 18:34-0400 Body height 180.34 cm [facility] 09-22-2022 18:34-0400 Body temperature 97.3 [degF] [facility] 09-22-2022 18:34-0400 Diastolic blood pressure 65 mm[Hg] [facility] 09-22-2022 18:34-0400 Systolic blood pressure 149 mm[Hg] [facility] 06-02-2022 12:58-0400 Body height 180.3 cm Hever Pamela MEDICAL FILE CLERK.MONOTYPE CASTER Work Phone: [facility] 06-02-2022 12:58-0400 Body weight 92.99 kg Hever Pamela MEDICAL FILE CLERK.MONOTYPE CASTER Work Phone: [facility] 06-02-2022 12:58-0400 Diastolic blood pressure 68 mm[Hg] Hever Pamela MEDICAL FILE CLERK.MONOTYPE CASTER Work Phone: [facility] 06-02-2022 12:58-0400 Heart rate 84 /min Hever Pamela MEDICAL FILE CLERK.MONOTYPE CASTER Work Phone: [facility] 06-02-2022 12:58-0400 SaO2% (BldA) [Mass fraction] 97 % Hever Pamela MEDICAL FILE CLERK.MONOTYPE CASTER Work Phone: [facility] 06-02-2022 12:58-0400 Systolic blood pressure 134 mm[Hg] Hever Pamela MEDICAL FILE CLERK.MONOTYPE CASTER Work Phone: [facility] 05-21-2022 16:12-0400 Body height 180.3 cm Paddy Zaidi MD Work Phone: [facility] 05-21-2022 16:12-0400 Body temperature 98.4 [degF] Paddy Zaidi MD Work Phone: [facility] 05-21-2022 16:12-0400 Body weight 88.22 kg Paddy Zaidi MD Work Phone: [facility] 05-21-2022 16:12-0400 Diastolic blood pressure 83 mm[Hg] Paddy Zaidi MD Work Phone: [facility] 05-21-2022 16:12-0400 Heart rate 71 /min Paddy Zaidi MD Work Phone: [facility] 05-21-2022 16:12-0400 Respiratory rate 16 /min Paddy Zaidi MD Work Phone: [facility] 05-21-2022 16:12-0400 SaO2% (BldA) [Mass fraction] 93 % Paddy Zaidi MD Work Phone: [facility] 05-21-2022 16:12-0400 Systolic blood pressure 137 mm[Hg] Paddy Zaidi MD Work Phone: [facility] 12-28-2021 09:17-0500 Body mass index (BMI) [Ratio] 27.8 kg/m2 Dr. Shayne Zaidi Work Phone: [facility] Work Phone: 12-28-2021 09:17-0500 Body temperature 97 [degF] Dr. Shayne Zaidi Work Phone: [facility] Work Phone: 12-28-2021 09:17-0500 Body weight 90.[address] Shayne Zaidi Work Phone: [facility] Work Phone: 12-28-2021 09:17-0500 Diastolic blood pressure 76 mm[Hg] Dr. Shayne Zaidi Work Phone: [facility] Work Phone: 12-28-2021 09:17-0500 Heart rate 72 /min Dr. Shayne Zaidi Work Phone: [facility] Work Phone: 12-28-2021 09:17-0500 Respiratory rate 18 /min Dr. Shayne Zaidi Work Phone: [facility] Work Phone: 12-28-2021 09:17-0500 SaO2% (BldA) [Mass fraction] 94 % Dr. Shayne Zaidi Work Phone: [facility] Work Phone: 12-28-2021 09:17-0500 Systolic blood pressure 140 mm[Hg] Dr. Shayne Zaidi Work Phone: [facility] Work Phone: 12-23-2021 11:19-0500 Body height 180.3 cm Paddy Zaidi MD Work Phone: [facility] 12-23-2021 11:19-0500 Body temperature 98.4 [degF] Paddy Zaidi MD Work Phone: [facility] 12-23-2021 11:19-0500 Body weight 87.09 kg Paddy Zaidi MD Work Phone: [facility] 12-23-2021 11:19-0500 Diastolic blood pressure 54 mm[Hg] Paddy Zaidi MD Work Phone: [facility] 12-23-2021 11:19-0500 Heart rate 87 /min Paddy Zaidi MD Work Phone: [facility] 12-23-2021 11:19-0500 SaO2% (BldA) [Mass fraction] 87 % Paddy Zaidi MD Work Phone: [facility] 12-23-2021 11:19-0500 Systolic blood pressure 91 mm[Hg] Paddy Zaidi MD Work Phone: [facility] 12-18-2021 15:00-0500 Heart rate 95 /min Dr. Shayne Zaidi Work Phone: [facility] Work Phone: 12-18-2021 14:55-0500 Body temperature 97.5 [degF] Dr. Shayne Zaidi Work Phone: [facility] Work Phone: 12-18-2021 14:55-0500 Diastolic blood pressure 88 mm[Hg] Dr. Shayne Zaidi Work Phone: [facility] Work Phone: 12-18-2021 14:55-0500 Inhaled oxygen flow rate 2 L/min Dr. Shayne Zaidi Work Phone: [facility] Work Phone: 12-18-2021 14:55-0500 Respiratory rate 16 /min Dr. Shayne Zaidi Work Phone: [facility] Work Phone: 12-18-2021 14:55-0500 SaO2% (BldA) [Mass fraction] 96 % Dr. Shayne Zaidi Work Phone: [facility] Work Phone: 12-18-2021 14:55-0500 Systolic blood pressure 128 mm[Hg] Dr. Shayne Zaidi Work Phone: [facility] Work Phone: 12-16-2021 15:05-0500 Body height 180.[address] Shayne Zaidi Work Phone: [facility] Work Phone: 12-16-2021 15:05-0500 Body weight 88.[address] Shayne Zaidi Work Phone: [facility] Work Phone: 12-14-2021 18:22-0500 Body mass index (BMI) [Ratio] 27.1 kg/m2 Dr. Shayne Zaidi Work Phone: [facility] Work Phone: 12-14-2021 17:51-0500 Diastolic blood pressure 84 mm[Hg] Dr. Shayne Zaidi Work Phone: [facility] Work Phone: 12-14-2021 17:51-0500 Heart rate 101 /min Dr. Shayne Zaidi Work Phone: [facility] Work Phone: 12-14-2021 17:51-0500 Inhaled oxygen flow rate 2 L/min Dr. Shayne Zaidi Work Phone: [facility] Work Phone: 12-14-2021 17:51-0500 Respiratory rate 28 /min Dr. Shayne Zaidi Work Phone: [facility] Work Phone: 12-14-2021 17:51-0500 SaO2% (BldA) [Mass fraction] 93 % Dr. Shayne Zaidi Work Phone: [facility] Work Phone: 12-14-2021 17:51-0500 Systolic blood pressure 142 mm[Hg] Dr. Shayne Zaidi Work Phone: [facility] Work Phone: 12-14-2021 17:05-0500 Body temperature 98.1 [degF] Dr. Shayne Zaidi Work Phone: [facility] Work Phone: 12-14-2021 15:17-0500 Body height 180.[address] Shayne Zaidi Work Phone: [facility] Work Phone: 12-14-2021 15:17-0500 Body mass index (BMI) [Ratio] 28.3 kg/m2 Dr. Shayne Zaidi Work Phone: [facility] Work Phone: 12-14-2021 15:17-0500 Body weight 92.[address] Shayne Zaidi Work Phone: [facility] Work Phone: 06-22-2021 13:25-0400 Diastolic blood pressure 80 mm[Hg] Hever Santiago APRN.CNP Work Phone: [facility] 06-22-2021 13:25-0400 Systolic blood pressure 138 mm[Hg] Hever Pamela MEDICAL FILE CLERK.MONOTYPE CASTER Work Phone: [facility] 06-22-2021 12:58-0400 Body height 180.3 cm Hever Pamela MEDICAL FILE CLERK.MONOTYPE CASTER Work Phone: [facility] 06-22-2021 12:58-0400 Body weight 88.36 kg Hever Pamela MEDICAL FILE CLERK.MONOTYPE CASTER Work Phone: [facility] 06-22-2021 12:58-0400 Heart rate 65 /min Hever Pamela MEDICAL FILE CLERK.MONOTYPE CASTER Work Phone: [facility] Encounters Encounter Date Encounter Type Care Provider Facility Start: 09-08-2024 End: 09-08-2024 ambulatory Yudelka Harris RN NURSE TELETYPE MECHANIC Comment on above: Patient Update Start: 09-05-2024 End: 09-05-2024 Telephone encounter Sudha Noe MD Work Phone: Cardiology Comment on above: Appointment Start: 08-14-2024 End: 08-14-2024 Refill Paddy Zaidi MD Work Phone: [facility] Comment on above: Refill Request Start: 07-23-2024 End: 07-23-2024 Refill Hever Martínez APRN.MONOTYPE CASTER Work Phone: [facility] Comment on above: Refill Request Start: 07-13-2024 End: 07-13-2024 ambulatory PADDY ZAIDI Facility:[facility] Start: 07-13-2024 End: 07-13-2024 Office outpatient visit 25 minutes Paddy Zaidi MD Work Phone: [facility] Comment on above: Oxygen dependent (Pr imary Dx); Atherosclerotic cardiovascular disease; Anxiety attack; Leg swelling; Adjustment disorder with mixed anxiety and depressed mood; PAD (peripheral artery disease); Acquired hypothyroidism; Pure hypercholesterolemia; Idiopathic peripheral neuropathy; Atherosclerosis of [place] coronary artery of [place] heart without angina pectoris Start: 07-13-2024 End: 07-13-2024 Telephone encounter Flavia Smiht APRN.MONOTYPE CASTER Work Phone: Pulmonary Medicine Start: 07-12-2024 End: 07-16-2024 Refill Paddy Zaidi MD Work Phone: [facility] Comment on above: Refill Request Start: 07-03-2024 End: 09-02-2024 Follow-up encounter Hever Martínez APRN.MONOTYPE CASTER Work Phone: [facility] Start: 06-29-2024 End: 06-29-2024 ambulatory PADDY ZAIDI Facility:[facility] Start: 06-29-2024 End: 08-29-2024 Follow-up encounter Georgiana Valdivia APRN.MONOTYPE CASTER Work Phone: [facility] Comment on above: Results Start: 06-29-2024 End: 06-29-2024 ambulatory PADDY ZAIDI Facility:[facility] Start: 06-18-2024 End: 06-18-2024 ambulatory Brayan Stallworth RN Work Phone: [facility] Comment on above: Population Health Na vigation Outreach ([employer] Hub ) Start: 06-16-2024 End: 06-19-2024 Refill Hever Martínez APRN.MONOTYPE CASTER Work Phone: [facility] Comment on above: Refill Request Start: 04-26-2024 End: 04-26-2024 ambulatory [facility]reira [facility] [place] Start: 04-26-2024 End: 04-26-2024 Patient encounter procedure [facility] Ferreira [facility] [place] Comment on above: Population Health Na vigation Outreach ([employer] High Risk - Attempt 2) Start: 04-08-2024 End: 04-09-2024 Refill Hever Martínez APRN.MONOTYPE CASTER Work Phone: [facility] Comment on above: Refill Request Start: 03-27-2024 End: 03-27-2024 ambulatory RAINA HUYNH Facility:[facility] Start: 03-27-2024 End: 03-27-2024 Office outpatient visit 25 minutes Flavia Smith APRN.MONOTYPE CASTER Work Phone: Pulmonary Medicine Comment on above: 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) (Primary Dx); Hypoxia; Pneumonia of left lower lobe due to infectious organism; Lung nodules Start: 03-27-2024 End: 03-27-2024 ambulatory Pulm Lab [facility] Work Phone: [facility] Comment on above: Spirometry Start: 03-27-2024 End: 03-27-2024 Patient encounter procedure Pulm Lab [facility] Work Phone: [facility] Start: 03-27-2024 End: 03-27-2024 Subsequent hospital visit by physician [facility] ([facility]) Work Phone: Cat Scan Comment on above: Pneumonia of left lo wer lobe due to infectious organism [J18.9] Start: 03-21-2024 End: 03-21-2024 Refill Paddy Zaidi MD Work Phone: [facility] Comment on above: Refill Request Appointment Start: 03-20-2024 End: 03-20-2024 ambulatory [facility] Dey [facility] [place] Start: 03-20-2024 End: 03-20-2024 Patient encounter procedure Elenita Dey MA [facility] Comment on above: Population Health Na vigation Outreach ([employer] High Risk Attempt #1 ) Start: 03-19-2024 ambulatory RAINA HUYNH Fac ility:[facility] Start: 03-11-2024 End: 03-13-2024 Refill Paddy Zaidi MD Work Phone: [facility] Comment on above: Refill Request Start: 03-06-2024 End: 03-21-2024 Telephone encounter Raina Huynh MD Work Phone: Pulmonary Medicine Comment on above: Anticoagulation Start: 03-05-2024 End: 03-05-2024 ambulatory Pulm Lab [facility] Work Phone: [facility] Comment on above: Spirometry Start: 03-05-2024 End: 03-05-2024 Patient encounter procedure Pulm Lab [facility] Work Phone: [facility] Comment on above: 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) (Primary Dx); Pneumonia of left lower lobe due to infectious organism; Lung nodules; Former smoker; Chronic hypoxemic respiratory failure (HCC) Start: 03-02-2024 End: 03-02-2024 ambulatory PADDY ZAIDI Facility:[facility] Start: 02-15-2024 End: 02-16-2024 Telephone encounter Paddy Zaidi MD Work Phone: [facility] Comment on above: Medication Problem Start: 02-14-2024 End: 02-14-2024 ambulatory PADDY ZAIDI Facility:[facility] Start: 02-14-2024 End: 02-14-2024 Office outpatient visit 25 minutes Hever Martínez APRN.MONOTYPE CASTER Work Phone: [facility] Comment on above: Pneumonia of right l ower lobe due to infectious organism (Primary Dx); Chronic obstructive pulmonary disease, unspecified COPD type (HCC); Adjustment disorder with mixed anxiety and depressed mood; Paroxysmal atrial fibrillation ([facility]); Encounter for immunization Start: 02-14-2024 End: 02-14-2024 Telephone encounter Hever Martínez APRN.MONOTYPE CASTER Work Phone: [facility] Comment on above: Appointment Refill Request Start: 02-13-2024 End: 02-13-2024 Telephone encounter Paddy Zaidi MD Work Phone: [facility] Comment on above: Received Outside Med ical Records ([facility]) Start: 02-07-2024 End: 02-07-2024 Emergency department patient visit Shayne Zaidi Facility:[facility] Start: 12-30-2023 End: 01-02-2024 Refill Paddy Zaidi MD Work Phone: [facility] Comment on above: Refill Request Start: 12-21-2023 End: 12-21-2023 Telephone encounter Paddy Zaidi MD Work Phone: [facility] Comment on above: Orders (Dasco annual oxygen rx) Start: 12-01-2023 End: 12-01-2023 Refill Paddy Zaidi MD Work Phone: [facility] Comment on above: Refill Request Start: 11-28-2023 End: 11-29-2023 Refill Paddy Zaidi MD Work Phone: [facility] Comment on above: Refill Request Start: 09-02-2023 ambulatory Sarah Robison RN Work Phone: [facility] Start: 08-25-2023 ambulatory Corrina GAN [facility] Start: 08-25-2023 Home visit Corrina Collazo [facility] Comment on above: Population Health Na vigation Outreach ([employer] Attributed Member- Needs 2023 Medicare Wellness Appt Scheduled/) Start: 08-03-2023 ambulatory [facility] De[facility] [place] Start: 08-03-2023 Patient encounter procedure Elenita Dey MA [facility] [place] Comment on above: Population Health Na vigation Outreach ([employer] AWV/HCC and care gaps /) Start: 07-11-2023 Refill Paddy quintana MD Work Phone: [facility] Comment on above: Refill Request Medication Request Start: 06-13-2023 Telephone encounter Paddy Zaidi MD Work Phone: [facility] Comment on above: Results (Labs ) Start: 06-07-2023 End: 06-07-2023 Patient encounter procedure Paddy Zaidi MD Work Phone: [facility] Comment on above: 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) (Primary Dx); Hypothyroidism, unspecified type; Essential hypertension; Mixed hyperlipidemia; Peripheral polyneuropathy; SOB (shortness of breath); Hypoxemia Start: 05-27-2023 Refill Paddy quintana MD Work Phone: [facility] Comment on above: Refill Request Start: 04-15-2023 ambulatory Corrina Barakat MA [facility] [place] Comment on above: Population Health Na vigation Outreach ([employer] HCCs 2.16.24) Start: 04-08-2023 Refill Paddy quintana MD Work Phone: [facility] Comment on above: Refill Request Start: 03-18-2023 Telephone encounter Paddy Zaidi MD Work Phone: [facility] Comment on above: Received Outside Med ical Records ([facility] ED 03/15/23) Start: 03-15-2023 End: 03-15-2023 [facility] Start: 12-28-2022 Telephone encounter Paddy Zaidi MD Work Phone: [facility] Comment on above: Orders (Dasco annual oxygen prescription renewal ) Start: 09-23-2022 Telephone encounter Paddy Zaidi MD Work Phone: [facility] Comment on above: Received Outside Med ical Records ([facility] 09/22/22) Start: 09-22-2022 End: 09-22-2022 Emergency department patient visit [facility] Work Phone: Start: 08-20-2022 Telephone encounter Paddy Zaidi MD Work Phone: [facility] Comment on above: Patient Question Start: 06-22-2022 Telephone encounter Hever page MEDICAL FILE CLERK.MONOTYPE CASTER Work Phone: [facility] Comment on above: Orders Start: 06-02-2022 End: 06-02-2022 Office outpatient visit 15 minutes Hever Santiago MEDICAL FILE CLERK.MONOTYPE CASTER Work Phone: [facility] Comment on above: Pneumonia of right m iddle lobe due to infectious organism (Primary Dx); ED (erectile dysfunction) of organic origin; Adjustment disorder with mixed anxiety and depressed mood Start: 05-25-2022 ambulatory Hever Santiago A PRN.MONOTYPE CASTER Work Phone: [facility] Comment on above: Results Start: 05-22-2022 End: 05-22-2022 Subsequent hospital visit by physician Xr [facility] Work Phone: Radiology Comment on above: Coronary artery dise ase involving [place] coronary artery of [place] heart with angina pectoris (HCC) [I25.119] Start: 05-21-2022 End: 05-21-2022 Patient encounter procedure Paddy Zaidi MD Work Phone: Family Practice Comment on above: Coronary artery dise ase involving [place] coronary artery of [place] heart with angina pectoris (HCC) (Primary Dx); Essential hypertension; Hypokalemia; Peripheral polyneuropathy; Acquired hypothyroidism; Anxiety; Paroxysmal atrial fibrillation (HCC); SOB (shortness of breath); Mixed hyperlipidemia; Hypothyroidism, unspecified type; Chronic obstructive pulmonary disease, unspecified COPD type (HCC) Start: 05-14-2022 Telephone encounter Paddy Zaidi MD Work Phone: Family Practice Comment on above: Medication Problem Start: 04-27-2022 ambulatory Talia Hood [facility] Comment on above: Population Health Na vigation Outreach ([facility]) Start: 03-30-2022 ambulatory Paddy quintana MD Work Phone: Internal Medicine [facility] Start: 02-19-2022 Telephone encounter Paddy Zaidi MD Work Phone: Family [facility] Comment on above: Medication Problem Start: 01-18-2022 End: 01-18-[address] Shayne Zaidi Work Phone: [facility] Work Phone: Start: 01-18-2022 End: 01-18-[address] Shayne Zaidi Work Phone: [facility] Start: 12-28-2021 Telephone encounter Paddy Zaidi MD Work Phone: Family [facility] Comment on above: Received Outside Med ical Records (Pulmonary Medicine [facility]) Start: 12-28-2021 End: 12-28-[address] Shayne Zaidi Work Phone: [facility] Medicine [facility] Start: 12-25-2021 Telephone encounter Paddy Zaidi MD Work Phone: Family [facility] Comment on above: Received Outside Med ical Records ([facility] 12 lead EKG 12/16/2021 and 12/17/2021) Start: 12-23-2021 Non-patient / Non-visit Dr. 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 12/18/2021) Start: 12-18-2021 Non-patient / Non-visit Dr. Oscar Zaidi Work Phone: [facility] Start: 12-17-2021 Non-patient / Non-visit Dr. Oscar Zaidi Work Phone: [facility] Start: 12-17-2021 Telephone encounter Paddy Zaidi MD Work Phone: Family [facility] Comment on above: Received Outside Med ical Records ([place]) Start: 12-17-2021 End: 12-18-2021 Non-patient / Non-visit Dr. Shayne Zaidi Work Phone: [facility] Start: 12-16-2021 Non-patient / Non-visit Dr. Oscar Zaidi Work Phone: [facility] Start: 12-16-2021 Telephone encounter Paddy Zaidi MD Work Phone: [facility] Comment on above: Received Outside Med ical Records ([facility] Cardiac Cath) Start: 12-16-2021 Non-patient / Non-visit Dr. Oscar Zaidi Work Phone: [facility] Start: 12-15-2021 Telephone encounter Paddy Zaidi MD Work Phone: [facility] Comment on above: Received Outside Med ical Records ([facility] ED) Start: 12-15-2021 Non-patient / Non-visit Dr. Oscar Zaidi Work Phone: [facility] Start: 12-15-2021 Non-patient / Non-visit Dr. Oscar Zaidi Work Phone: [facility] Start: 12-14-2021 Non-patient / Non-visit Dr. Oscar Zaidi Work Phone: [facility] Start: 12-14-2021 Non-patient / Non-visit Dr. Oscar Zaidi Work Phone: [facility] Start: 12-14-2021 End: 12-18-2021 Evaluation and management of inpatient Dr. Shayne Zaidi Work Phone: [facility] Start: 11-13-2021 Refill Hever MEANSNOlyMONOTYPE CASTER Work Phone: [facility] Comment on above: Refill Request Start: 09-14-2021 Telephone encounter Hever page MEDICAL FILE CLERKOlyMONOTYPE CASTER Work Phone: [facility] Comment on above: Results Start: 09-09-2021 Refill Hever Santiago A PRN.MONOTYPE CASTER Work Phone: [facility] Comment on above: Refill Request Start: 06-22-2021 End: 06-22-2021 Patient encounter procedure Hever Santiago MEDICAL FILE CLERK.MONOTYPE CASTER Work Phone: [facility] Comment on above: Essential hypertensi on (Primary Dx); Pure hypercholesterolemia; Acquired hypothyroidism; Adjustment disorder with mixed anxiety and depressed mood; Peripheral polyneuropathy Start: 06-09-2021 Refill Paddy quintana MD Work Phone: [facility] Comment on above: Refill Request Start: 05-20-2021 Refill Paddy quintana MD Work Phone: [facility] Comment on above: Refill Request Procedures [...] Detail Author Start: 06-30-2027 [facility] Start: 06-05-2026 [facility] Start: 06-29-2025 Hepatitis B surface antibody level LDL Cholesterol [facility] Start: 05-21-2025 DIABETES SCREEN DIABETES SCREEN [facility] Start: 05-21-2025 Diabetes Screening [facility] Start: 11-16-2024 End: 11-16-2024 Patient encounter procedure 11/16/2024 10:00 AM EDT Office Visit Cardiology [address] [place] [address] [place] [address] [place], [place] [id number] Dx: Paroxysmal atrial fibrillation (HCC) [I48.0] Cardiology Comment on above: Dx: Paroxysmal atria l fibrillation (HCC) [I48.0] Start: 10-16-2024 End: 10-16-2024 Patient encounter procedure 10/16/2024 3:20 PM EDT Office Visit [address] [place] [address] Paddy Zaidi MD [address] [place] [address] [place] [address] follow up [facility] Comment on above: follow up Start: 10-08-2024 Influenza vaccination Influenza Vacc ine (#1) [facility] Start: 10-02-2024 End: 10-02-2024 Patient encounter procedure 10/02/2024 2:00 PM EDT Office Visit Pulmonary Medicine [address] [place], [place] [address] Flavia Smith APRN.MONOTYPE CASTER [address] [place] [address] 3 MTH F/U / PT DECLINED EARLIER APPOINTMENT Pulmonary Medicine Comment on above: 3 MTH F/U / PT DECLI LUCILA EARLIER APPOINTMENT Start: 09-14-2024 DIABETES SCREEN DIABETES SCREEN [facility] Start: 07-13-2024 End: 07-13-2024 Patient encounter procedure 07/13/2024 4:20 PM EDT Office Visit [facility] [address] [place], [place] [address] Paddy Zaidi MD [address] [place] [id number] Foot issues follow up [facility] Comment on above: Foot issues follow u p Start: 06-26-2024 End: 06-26-2024 Patient encounter procedure Pulmonary Medicine Comment on above: 3 MTH F/U Start: 06-05-2024 Hepatitis B surface antibody level LDL Cholesterol [facility] Start: 03-27-2024 End: 03-27-2024 Patient encounter procedure Pulmonary Medicine Comment on above: f/up Pneumonia of left lo wer lobe due to infectious organism [J18.9]; Lung nodules [R91.8] Start: 03-27-2024 End: 03-27-2024 ambulatory 03/27/2024 1:30 PM EST Procedure [facility] [address] [place] [address] Wstr, Pulm Lab [facility] [address] [place] [address] 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] [facility] Comment on above: 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] Start: 03-26-2024 End: 03-26-2024 Patient encounter procedure 03/26/2024 3:00 PM EST Office Visit [address] [place], [place] [id number] Paddy Zaidi MD [address] [place], [place] [id number] follow up [facility] Comment on above: follow up Start: 03-21-2024 End: 03-21-2024 Patient encounter procedure Pulmonary Medicine Comment on above: f/up Pneumonia of left lo wer lobe due to infectious organism [J18.9]; Lung nodules [R91.8] Start: 03-21-2024 End: 03-21-2024 ambulatory 03/21/2024 1:30 PM EST Procedure [facility] [address] [place] [address] Wstr, Pul Lab [facility] [address] [place] [address], [place] [address] 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] PUL [facility] Comment on above: 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] Start: 03-14-2024 End: 03-14-2024 Patient encounter procedure Cat Scan Comment on above: Pneumonia of left lo wer lobe due to infectious organism [J18.9]; Lung nodules [R91.8] f/up Start: 03-14-2024 End: 03-14-2024 ambulatory 03/14/2024 12:30 PM EST Procedure [facility] [address] [place] [address] Wstr, Pul Lab [facility] [address] [place] [address] 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 Work Phone: Comment on above: Expected: 02/21/2024 , Expires: 05/22/2024 Start: 02-14-2024 End: 05-15-2024 Basic metabolic 2000 panel - Serum or Plasma BASIC METABOLIC PANEL Lab Routine Paroxysmal atrial fibrillation (HCC) Expected: 02/14/2024, Expires: 05/15/2024 [facility] Comment on above: Expected: 02/14/2024 , Expires: 05/15/2024 Start: 02-14-2024 End: 02-14-2024 Patient encounter procedure 02/14/2024 2:00 PM EST Office Visit Family Practice [address] [place], [place] [id number] Hever Martínez APRN.MONOTYPE CASTER [address] [place] [id number] hosptial f/u breathing cold coughing touch of pneumonia Family [facility] Comment on above: hosptial f/u breathi ng cold coughing touch of pneumonia Start: 02-08-2024 Advance Directive Discussion Advance Directive Discussion [facility] Start: 02-08-2024 Medicare Advantage A nnual Wellness Visit Medicare Advantage Annual Wellness Visit [facility] Start: 12-18-2023 DIABETES SCREEN DIABETES SCREEN [facility] Start: 10-09-2023 Covid-19 Vaccine ( season) Covid-19 Vaccine ( season) [facility] Start: 10-09-2023 Influenza vaccination [facility] Start: 07-08-2023 End: 07-08-2023 Patient encounter procedure 07/08/2023 3:40 PM EDT Office Visit Family Practice [address] [place], [place] [id number] Paddy Zaidi MD [address] [place] [phone] 1 month follow up [facility] Comment on above: 1 month follow up Start: 06-23-2023 End: 06-23-2023 Patient encounter procedure 06/23/2023 3:20 PM EDT Office Visit [facility] [address] [place], [place] [address] Paddy Zaidi MD [address] [place], [place] [address] MEDICARE WELLNESS [id number] [facility] Comment on above: MEDICARE WELLNESS Z0 0.00 Start: 06-16-2023 End: 06-16-2023 ambulatory 06/16/2023 2:15 PM EDT Procedure [facility] [address] [place] [address] Wstr, Pulm Lab [facility] [address] [place] [address] 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]; Hypoxemia [R09.02] [facility] Comment on above: 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) [I25.729]; Hypoxemia [R09.02] Start: 06-07-2023 End: 06-07-2023 Patient encounter procedure 06/07/2023 4:20 PM EDT Office Visit [facility] [address] [place], [place] [address] Paddy Zaidi MD [address] [place], [place] [address] anxiety, [facility] Comment on above: anxiety, Start: 05-27-2023 End: 08-26-2023 CBC panel - Blood by Automated count COMPLETE BLOOD COUNT Lab Routine Essential hypertension Mixed hyperlipidemia Peripheral polyneuropathy Expected: 05/27/2023, Expires: 08/26/2023 [facility] Comment on above: Expected: 05/27/2023 , Expires: 08/26/2023 Start: 05-27-2023 End: 08-26-2023 Comprehensive metabolic 2000 panel - Serum or Plasma COMPREHENSIVE METABOLIC PANEL Lab Routine Essential hypertension Expected: 05/27/2023, Expires: 08/26/2023 [facility] Work Phone: Comment on above: Expected: 05/27/2023 , Expires: 08/26/2023 Start: 05-27-2023 End: 08-26-2023 Hemoglobin A1c in Blood HEMOGLOBIN A1C Lab Routine Peripheral polyneuropathy Expected: 05/27/2023, Expires: 08/26/2023 [facility] Comment on above: Expected: 05/27/2023 , Expires: 08/26/2023 Start: 05-27-2023 End: 08-26-2023 Lipid 1996 panel - Serum or Plasma LIPID PANEL BASIC Lab Routine Mixed hyperlipidemia Expected: 05/27/2023, Expires: 08/26/2023 [facility] Comment on above: Expected: 05/27/2023 , Expires: 08/26/2023 Start: 05-27-2023 End: 08-26-2023 Thyrotropin [Units/volume] in Serum or Plasma THYROID STIMULATING HORMONE Lab Routine Hypothyroidism, unspecified type Expected: 05/27/2023, Expires: 08/26/2023 [facility] Comment on above: Expected: 05/27/2023 , Expires: 08/26/2023 Start: 05-22-2023 Hepatitis B surface antibody level LDL CHOLESTEROL [facility] Start: 03-15-2023 [facility] Start: 03-15-2023 Inhalation therapy procedure [facility] Start: 02-07-2023 Advance Directive Discussion Advance Directive Discussion [facility] Start: 12-23-2022 SHINGRIX VACCINE (1 of 2) SMALL GRIX VACCINE (1 of 2) [facility] Comment on above: Postponed from 10/05 (Declined at this time) Start: 12-23-2022 Urine microalbumin profile DTAP,TDAP,TD (1 - Tdap) [facility] Comment on above: Postponed from 10/05 (Declined at this time) Start: 10-08-2022 Covid-19 Vaccine () Covid-19 Vaccine () [facility] Start: 10-08-2022 Influenza vaccination [facility] Start: 05-21-2022 End: 07-21-2022 Natriuretic peptide.B prohormone N-Terminal [Mass/volume] in Serum or Plasma NT PRO BNP Lab Routine Coronary artery disease involving [place] coronary artery of [place] heart with angina pectoris (HCC) SOB (shortness of breath) Expected: 05/21/2022, Expires: 07/21/2022 [facility] Work Phone: Comment on above: Expected: 05/21/2022 , Expires: 07/21/2022 Start: 03-30-2022 End: 05-30-2022 CBC panel - Blood by Automated count CBC Lab Routine Medication management Expected: 03/30/2022, Expires: 05/30/2022 [facility] Work Phone: Comment on above: Expected: 03/30/2022 , Expires: 05/30/2022 Start: 03-30-2022 End: 05-30-2022 SCHEDULE LAB TESTING SCHEDULE LAB TESTING Lab Routine Expected: 03/30/2022, Expires: 05/30/2022 [facility] Work Phone: Comment on above: Expected: 03/30/2022 , Expires: 05/30/2022 Start: 03-30-2022 End: 05-30-2022 Thyrotropin [Units/volume] in Serum or Plasma TSH BLD Lab Routine Acquired hypothyroidism Expected: 03/30/2022, Expires: 05/30/2022 [facility] Work Phone: Comment on above: Expected: 03/30/2022 , Expires: 05/30/2022 Start: 02-07-2022 ADVANCE DIRECTIVE DISCUSSION ADVANCE DIRECTIVE DISCUSSION [facility] Start: 12-23-2021 Patient referral [facility] Work Phone: Start: 12-18-2021 [facility] Start: 12-18-2021 [facility] Work Phone: Start: 12-17-2021 Referral to occupati onal therapist [facility] Work Phone: Start: 12-17-2021 Referral to service [facility] Work Phone: Start: 12-17-2021 Hepatitis B surface antibody level LDL CHOLESTEROL [facility] Start: 12-16-2021 End: 12-17-2021 [facility] Work Phone: Start: 12-16-2021 Cardiac monitoring [facility] Work Phone: Start: 12-16-2021 Cardiac rehabilitati on - phase 1 [facility] Work Phone: Start: 12-16-2021 Cardiac rehabilitati on - phase 2 [facility] Work Phone: Start: 12-16-2021 Notification of physician [facility] Work Phone: Start: 12-16-2021 Patient discharge [facility] Work Phone: Start: 12-16-2021 Systemic arterial pressure monitoring [facility] Work Phone: Start: 12-16-2021 Taking patient vital signs [facility] Work Phone: Start: 12-16-2021 Vascular disease ris k assessment [facility] Work Phone: Start: 12-16-2021 Vital signs measurements [facility] Work Phone: Start: 12-15-2021 Care planning and pr oblem solving actions [facility] Work Phone: Start: 12-15-2021 Patient referral [facility] Work Phone: Start: 12-15-2021 Catheterization of vein [facility] Work Phone: Start: 12-15-2021 Medication not administered [facility] Work Phone: Start: 12-15-2021 [facility] Work Phone: Start: 12-14-2021 Care planning and pr oblem solving actions [facility] Work Phone: Start: 12-14-2021 Ambulation without limitation [facility] Work Phone: Start: 12-14-2021 Assessment of risk o f venous thromboembolism [facility] Work Phone: Start: 12-14-2021 Catheterization of vein [facility] Work Phone: Start: 12-14-2021 Chart related administrative procedure [facility] Work Phone: Start: 12-14-2021 Elevation of head of bed [facility] Work Phone: Start: 12-14-2021 Insertion of cathete r into peripheral vein [facility] Work Phone: Start: 12-14-2021 Measuring intake and output [facility] Work Phone: Start: 12-14-2021 Medication education [facility] Work Phone: Start: 12-14-2021 Oxygen therapy [facility] Work Phone: Start: 12-14-2021 Patient education [facility] Work Phone: Start: 12-14-2021 Providing care accor ding to standard [facility] Work Phone: Start: 12-14-2021 Referral to cement car dumper [facility] Work Phone: Start: 12-14-2021 [facility] Work Phone: Start: 12-14-2021 Troponin I measurement [facility] Work Phone: Start: 12-14-2021 Bacteria identified in Sputum by Culture [facility] Work Phone: Start: 12-14-2021 Legionella pneumophi la Ag [Presence] in Urine [facility] Work Phone: Start: 12-14-2021 Streptococcus pneumo niae antigen assay [facility] Work Phone: Start: 12-14-2021 [facility] Work Phone: Start: 12-14-2021 End: 12-14-2021 Following clinical pathway protocol [facility] Work Phone: Start: 12-14-2021 Verification routine Wo racheal [facility] Work Phone: Start: 12-14-2021 Admission procedure Sims ster [facility] Work Phone: Start: 12-14-2021 [facility] Work Phone: Start: 10-08-2021 Influenza vaccination INFLUENZA (#1) [facility] Start: 09-10-2021 End: 11-10-2021 Basic metabolic 2000 panel - Serum or Plasma BASIC METABOLIC PNL Lab Routine Essential hypertension Hypokalemia Expected: 09/10/2021, Expires: 11/10/2021 [facility] Work Phone: Comment on above: Expected: 09/10/2021 , Expires: 11/10/2021 Start: 02-07-2021 ADVANCE DIRECTIVE DISCUSSION ADVANCE DIRECTIVE DISCUSSION [facility] Start: 08-25-2020 COVID-19 VACCINE (3 - Booster for Moderna series) COVID-19 VACCINE (3 - Booster for Moderna series) [facility] Start: 05-23-2020 COVID-19 VACCINE (3 - Booster for Moderna series) COVID-19 VACCINE (3 - Booster for Moderna series) [facility] Start: 05-23-2020 COVID-19 VACCINE (3 - Moderna series) COVID-19 VACCINE (3 - Moderna series) [facility] Start: 10-05-2014 RSV Vaccine (1 - 1-d ose 75+ series) RSV Vaccine (1 - 1-dose 75+ series) [facility] Start: 1999 RSV Vaccine (1 - 1-d ose 60+ series) RSV Vaccine (1 - 1-dose 60+ series) [facility] Start: 10-05-1989 SHINGRIX VACCINE (1 of 2) SMALL GRIX VACCINE (1 of 2) [facility] Start: 10-05-1958 Urine microalbumin profile [facility] Start: 10-05-1957 SPIROMETRY SPIROMETRY [facility] End: 04-04-2025 CT Chest WO contrast CT CHEST WO IVCON Radiology Routine Pneumonia of left lower lobe due to infectious organism Lung nodules 1 Occurrences starting 03/05/2024 until 04/04/2025 [facility] Work Phone: Comment on above: 1 Occurrences starti ng 03/05/2024 until 04/04/2025 CT Chest WO contrast CT CHEST WO IVCON Radiology Routine Pneumonia of left lower lobe due to infectious organism Lung nodules 03/27/2024 3:[address] [facility] Work Phone: ECG COMPLETE ECG COMPLETE ECG Routine Coronary artery disease involving [place] coronary artery of [place] heart with angina pectoris (HCC) Paroxysmal atrial fibrillation (HCC) 05/21/2022 3:[address] [facility] Work Phone: OXIMETRY - NOCTURNAL OXIMETRY - NOCTURNAL Procedures Routine Hypoxia Ordered: 03/27/2024 [facility] Work Phone: Comment on above: Ordered: 03/27/2024 End: 04-04-2025 OXIMETRY WITH AMBULATION OXIMETRY WITH AMBULATION PFT Routine Stage 3 severe COPD by GOLD classification ([facility]) 1 Occurrences starting 03/05/2024 until 04/04/2025 [facility] Comment on above: 1 Occurrences starti ng 03/05/2024 until 04/04/2025 Patient Education [facility] Work Phone: Patient referral 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 Work Phone: Comment on above: Once per week for 52 Occurrences starting 02/16/2024 until 02/15/2025 End: 06-20-2023 Radiologic exam chest 2 views XR CHEST 2V FRONTAL/LAT Radiology Routine Coronary artery disease involving [place] coronary artery of [place] heart with angina pectoris (HCC) Paroxysmal atrial fibrillation (HCC) SOB (shortness of breath) 1 Occurrences starting 05/21/2022 until 06/20/2023 [facility] Work Phone: Comment on above: 1 Occurrences starti ng 05/21/2022 until 06/20/2023 Radiologic exam ches t 2 views XR CHEST 2V FRONTAL/LAT Radiology Routine Pneumonia of right middle lobe due to infectious organism Ordered: 06/02/2022 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 Work Phone: Comment on above: 1 Occurrences starti ng 06/07/2023 until 07/06/2024 [facility] Immunizations Immunization Date Immunization Notes Care Provider Elise hernandez 02-14-2024 influenza, high dose seasonal, preservative-free Hever Martínez APRN.CNP Work Phone: [facility] 02-14-2024 influenza virus vacc ine, unspecified formulation Paddy Zaidi MD Work Phone: [facility] 12-17-2020 influenza, high-dose , quadrivalent vaccine (FLUZONE HIGH DOSE QUADRIVALENT) Paddy Zaidi MD Work Phone: [facility] 12-17-2020 influenza virus vacc ine, unspecified formulation Paddy Zaidi MD Work Phone: [facility] 03-28-2020 COVID-19 vaccine, fu ll dose (MODERNA) Paddy Zaidi MD Work Phone: [facility] 02-29-2020 COVID-19 vaccine, fu ll dose (MODERNA) Paddy Zaidi MD Work Phone: [facility] 07-31-2019 pneumococcal polysaccharide vaccine, 23 valent Paddy Zaidi MD Work Phone: [facility] 07-31-2019 pneumococcal vaccine , unspecified formulation Dr. Shayne Zaidi Work Phone: [facility] 01-12-[address] Shayne Zaidi Work Phone: [facility] 01-12-2018 influenza, high dose seasonal, preservative-free Paddy Zaidi MD Work Phone: [facility] 01-12-2018 influenza, seasonal, injectable Paddy Zaidi MD Work Phone: [facility] 01-12-2018 influenza, seasonal, injectable, preservative free Paddy Zaidi MD Work Phone: [facility] 01-12-2018 pneumococcal polysaccharide vaccine, 23 valent Paddy Zaidi MD Work Phone: [facility] 01-12-2018 pneumococcal vaccine , unspecified formulation Paddy Zaidi MD Work Phone: [facility] 03-31-2017 pneumococcal conjuga te vaccine, 13 valent Paddy Zaidi MD Work Phone: [facility] 12-08-[address] Shayne Zaidi Work Phone: [facility] 12-08-2016 influenza, seasonal, injectable Paddy Zaidi MD Work Phone: [facility] 12-08-2016 influenza, seasonal, injectable, preservative free Paddy Zaidi MD Work Phone: [facility] 11-27-2016 influenza, high dose seasonal, preservative-free Paddy Zaidi MD Work Phone: [facility] Work Phone: 12-01-2013 influenza virus vacc ine, whole virus Paddy Zaidi MD Work Phone: [facility] 11-23-2012 influenza virus vacc ine, unspecified formulation Paddy Zaidi MD Work Phone: [facility] 01-16-2010 pneumococcal polysaccharide vaccine, 23 valent Paddy Zaidi MD Work Phone: [facility] 12-09-2009 influenza virus vacc ine, unspecified formulation Paddy Zaidi MD Work Phone: [facility] 12-23-2008 influenza virus vacc ine, unspecified formulation Paddy Zaidi MD Work Phone: [facility] Work Phone: Payers Date Payer Category Payer Self-pay [id number] 2021 Medicare [id number] 2021 Medicare AETNA MEDICARE A ETNA MEDICARE PPO [id number] 2021-Present [phone] [address] [place] [address] PP [id number] 2021 Medicare (Managed Care) [place] [id number] 2014 Private Health Insurance 101 [id number] 2009 Medicare AETNA MEDICARE A ETNA MEDICARE PPO [id number] 2009-Present [phone] [address] [place] [address] PPO [id number] Medicare MEDICARE PART A B [id number] Unknown [id number] Unknown [id number] Social History Date Type Detail Facility Start: 02-01-2017 End: 03-05-2024 Tobacco smoking status NHIS Ex-smoker [facility] Start: 10-17-1967 End: 10-16-1992 History of tobacco use Current smoker [facility] Start: 10-17-1967 End: 10-16-1992 History of tobacco use Cigarette Smoker [facility] Start: 12-17-2020 End: 07-13-2024 Alcohol intake Current non-drinker of alcohol (finding) [facility] Start: 1940 Sex Assigned At Not on file [facility] Start: 06-12-2021 End: 12-23-2021 Exposure to SARS-CoV-2 (event) Not sure [facility] Start: 02-01-2017 End: 07-20-2022 Cigarettes smoked current (pack per day) - Reported 2 [facility] Start: 02-01-2017 End: 03-05-2024 Tobacco use and exposure Smokeless tobacco non-user [facility] Start: 12-14-2021 End: 03-15-2023 Tobacco smoking status VAIS Unknown if ever smoked [facility] Start: 07-28-2019 None [facility] Start: 07-28-2019 Spouse/ Signif icant Other [facility] Start: 07-28-2019 Non-smoker [facility] Start: 1940 Sex Assigned At Male [facility] Start: 06-02-2022 End: 07-20-2022 Tobacco use panel [facility] Adult Depression Screening Assessment 0 [facility] Medical Equipment Procedure Code Equipment Code Equipment [...] X3 Insert for MDM FDA Start: 07-24-2018 ([id number]) Drug-eluting cor onary artery stent, bioabsorbable-polymer -coated ()[id number] FDA Start: 12-16-2021 6.5MM CANNULATED SCREW FDA [...] Assessment Result Facility 12-18-2021 Functional status Chair [facility] Work Phone: 07-29-2014 Are you deaf, or do you have serious difficulty hearing No 07/29/2014 10:56 AM EDT Sindhu Phelps Ma No [facility] 07-29-2014 Are you blind, or do you have serious difficulty seeing, even when wearing glasses No 07/29/2014 10:56 AM EDT Sindhu Phelps Ma No [facility] 07-29-2014 Do you have serious difficulty walking or climbing stairs No 07/29/2014 10:56 AM EDT Sindhu Phelps Ma No [facility] 07-29-2014 Do you have difficul ty dressing or bathing No 07/29/2014 10:56 AM EDT Sindhu Phelps Ma No [facility] 07-29-2014 Because of a physica l, mental, or emotional condition, do you have difficulty doing errands alone such as visiting a physician's office or shopping No 07/29/2014 10:56 AM EDT Sindhu Phelps Ma No [facility] Mental Status Date Assessment Result Facility 12-18-2021 Cognitive function Voice/Name [facility] Work Phone: 07-29-2014 Because of a physica l, mental, or emotional condition, do you have serious difficulty concentrating, remembering, or making decisions No 07/29/2014 10:56 AM EDT Sindhu Phelps Ma No [facility] Clinical Notes 05-21-2021 to 09-08-2024 Telephone Encounter [...] seek emergency treatment and she verbalized understanding. [facility] 09-08-2024 Miscellaneous Notes Patient's caregiver called requesting [...] she verbalized understanding. documented in this encounter [facility] 09-05-2024 Telephone encounter Note Lvm and letter Provider only at [place] now [facility] 09-05-2024 Miscellaneous Notes Lvm and letter Provider only at [place] now documented in this encounter [facility] 08-14-2024 Telephone encounter Note Pharmacy verified in [...] Not applicable Please advise. Vivi Shaffer MA [facility] 08-14-2024 Miscellaneous Notes Pharmacy verified in Epic [...] Vivi Shaffer MA documented in this encounter [facility] 07-13-2024 Note HNO ID: [id number] Author: PADDY ZAIDI MD Service: ? Author Type: Physician Type: Progress Notes Filed: 07/13/2024 17:45 Note Text: Subjective Adrian Pedersen is an 83-year-old male with a history of anxiety, presenting with dyspnea, lower extremity edema, and anxiety attacks, accompanied by his caregiver, Hui Ray, who is providing additional history. Dyspnea atherosclerotic heart disease: Pending electophys eval in [place] in November. No regular cement car dumper. 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 Atherosclerosis of [place] coronary artery of [place] heart without angina pectoris (I25.10) - Referral to cardiology in [place] initiated for further evaluation and management. - [...] - Prescription sent to pharmacy. Recording using Venturepax software for draft documentation of the visit was discussed with the patient/authorized premium service representative; all questions welcomed and answered. Patient/authorized premium service representative agreed to proceed Paddy Zaidi MD [facility] 07-13-2024 History of Present illness Narrative Subjective Adrian Pedersen is an 83-year-old male with a history of anxiety, presenting with dyspnea, lower extremity edema, and anxiety attacks, accompanied by his caregiver, Hui Ray, who is providing additional history. Dyspnea atherosclerotic heart disease: Pending electophys eval in [place] in November. No regular cement car dumper. 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 Atherosclerosis of [place] coronary artery of [place] heart without angina pectoris (I25.10) - Referral to cardiology in [place] initiated for further evaluation and management. - [...] - Prescription sent to pharmacy. Recording using Venturepax software for draft documentation of the visit was discussed with the patient/authorized premium service representative; all questions welcomed and answered. Patient/authorized premium service representative agreed to proceed Paddy Zaidi MD documented in this encounter [facility] 07-13-2024 Telephone encounter Note Review of OSH CT with most recent CT does not show worsening of right hemidiaphragm. Left lower lobe nodule no longer seen. Atelectasis in LLL but no further concern for PNA. Needs to complete overnight oxygen testing. [facility] 07-13-2024 Miscellaneous Notes Review of OSH CT with most recent CT does not show worsening of right hemidiaphragm. Left lower lobe nodule no longer seen. Atelectasis in LLL but no further concern for PNA. Needs to complete overnight oxygen testing. documented in this encounter [facility] 07-13-2024 Telephone encounter Note The following approved [...] ZAIDI Due for appt. Paddy Zaidi MD [facility] 07-13-2024 Miscellaneous Notes The following approved medication [...] 2024 1:41 PM documented in this encounter [facility] 07-13-2024 Telephone encounter Note Prescription Refill Information [...] Summers LPN July 13, 2024 1:41 PM [facility] 07-12-2024 Telephone encounter Note Prescription Refill Information [...] Ann LPN July 12, 2024 11:46 AM [facility] 07-12-2024 Miscellaneous Notes Prescription Refill Information The [...] 2024 11:46 AM documented in this encounter [facility] 07-03-2024 Telephone encounter Note Spoke to Hui who said patient is taking coumadin daily - believes it is 1 pill a day but is not with patient/able to check. States she was unaware that INR needed to be completed - has not been monitored. OV tomorrow Would you like to make changes at this time or wait until OV? [facility] 07-03-2024 Miscellaneous Notes Spoke to Hui who said patient is taking coumadin daily - believes it is 1 pill a day but is not with patient/able to check. States she was unaware that INR needed to be completed - has not been monitored. OV tomorrow Would you like to make changes at this time or wait until OV? Called patient's child care supervisor Hui and patient's son, no answer at this time. Left voicemail to call the office back. Please advise the patient that his INR (no units) Date Value 06/29/2024 1.2 is very too low/subtherapeutic. INR has not been checked in 3 months. Has someone else been monitoring this? Is he taking coumadin? documented in this encounter [facility] 06-29-2024 Telephone encounter Note Called patient's child care supervisor Hui and patient's son, no answer at this time. Left voicemail to call the office back. [facility] 06-29-2024 Telephone encounter Note Please advise the patient that his INR (no units) Date Value 06/29/2024 1.2 is very too low/subtherapeutic. INR has not been checked in 3 months. Has someone else been monitoring this? Is he taking coumadin? [facility] Work Phone: 06-29-2024 Note HNO ID: [id number] Author: FLAVIA SMITH APRN.MONOTYPE CASTER Service: ? Author Type: Nurse Practitioner Type: Progress Notes Filed: 06/29/2024 19:32 Note Text: Pulmonary Medicine Patients name: Arturo Campbell PCP: Paddy Zaidi MD CC: follow-up HPI: Arturo Pedersen is a 83 year old male former 36-vgou-kmuy smoker quitting in 1992 with PMH significant for obesity, coronary artery disease s/p CABG and stent, previous stroke, GERD, HLD, prostate cancer s/p radiation, HTN, PAF on AC, central sleep apnea not wearing PAP, chronic hypoxemic respiratory failure. Current inhaled therapy Advair and PRN Albuterol. He presents today for follow-up with his assistant womens volleyball coach. YOLANDA 03/2024 with exertional dyspnea, chest tightness and wheezing. Started on Advair at that time. Oximetry with ambulation at that time did not show need for supplemental O2 with exertion. He and his assistant womens volleyball coach insist he can't even stand up without [...] appearance. He is not ill-appearing. Comments: Very CIRCLE HENT: Head: Normocephalic. Nose: No rhinorrhea. Mouth/Throat: Mouth: Mucous membranes are moist. Pharynx: No oropharyngeal exudate. Cardiovascular: (more content not included)... [facility] 06-21-2024 Note HNO ID: [id number] Author: CORRINA FUENTES MA Service: ? Author Type: Field Talent Qualification Specialist Type: Progress Notes Filed: 06/21/2024 08:30 Note Text: POPULATION HEALTH NAVIGATION OUTREACH Action/FYI Letter received and sent to be mailed. Navigation Signature: Corrina Fuentes MA June 21, 2024 8:30 AM [facility] 06-20-2024 Note HNO ID: [id number] Author: ANT DIAS MA Service: ? Author Type: Field Talent Qualification Specialist Type: Progress Notes Filed: 06/20/2024 08:24 Note [...] Healthy at Home (H@H) phone number provided [phone]: Yes via letter Reason for Outreach [facility] Care Gaps due: Medicare Annual Wellness Visit Patient Contacted: Unable or unnecessary to reach patient: Unable to leave message Letter mailed Navigation Signature: Ant Dias MA June 20, 2024 8:22 AM [facility] 06-19-2024 Telephone encounter Note The following approved [...] once daily. Authorizing Provider: PADDY ZAIDI MD [facility] 06-19-2024 Miscellaneous Notes The following approved medication [...] 2024 1:48 PM documented in this encounter [facility] 06-18-2024 Telephone encounter Note Prescription Refill Information [...] Ann LPN June 18, 2024 1:48 PM [facility] 06-18-2024 Note HNO ID: [id number] Author: ANT DIAS MA Service: ? Author Type: Field Talent Qualification Specialist Type: Progress Notes Filed: 06/18/2024 12:47 Note [...] Healthy at Home (H@H) phone number provided [phone]: No Reason for Outreach [facility] Care Gaps due: Medicare Annual Wellness Visit Patient Contacted: Unable or unnecessary to reach patient: Unable to leave message Navigation Signature: Ant Dias MA June 18, 2024 12:44 PM [facility] 06-18-2024 History of Present illness Narrative POPULATION [...] Healthy at Home (H@H) phone number provided [phone]: No Reason for Outreach [facility] Care [...] 2024 12:28 PM documented in this encounter [facility] 06-18-2024 Note HNO ID: [id number] Author: BRAYAN STALLWORTH RN Service: ? Author [...] Stallworth RN June 18, 2024 12:28 PM [facility] 06-18-2024 Note Patient Outreach (AM [facility]) ARTURO PEDERSEN ([id number]) 1940 M Date Time Provider Department 06/18/24 [...] Healthy at Home (H@H) phone number provided [phone]: No Reason for Outreach [facility] Care Gaps due: Medicare Annual Wellness Visit Patient Contacted: Unable or unnecessary to reach patient: Unable to leave message Navigation Signature: Ant Dias MA June 18, 2024 12:44 PM Ant Dias MA 06/20/2024 8:24 AM Signed POPULATION HEALTH NAVIGATION OUTREACH Action/FYI Patient is on [facility] Outreach List and needs appointment to address [...] Healthy at Home (H@H) phone number provided [phone]: Yes via letter Reason for Outreach [facility] Care Gaps due: Medicare Annual Wellness Visit Patient Contacted: Unable or unnecessary to reach patient: Unable to leave message Letter mailed Navigation Signature: Ant Dias MA June 20, 2024 8:22 AM Corrina Fuentes MA 06/21/2024 8:30 AM Signed POPULATION [facility] NAVIGATION OUTREACH Action/FYI Letter received and sent to be mailed. Navigation Signature: Corrina Fuentes MA June 21, 2024 8:30 AM Allergies As of Date: 06/18/2024 Noted Allergy Reaction ASPIRIN 04/19/2018 16 - Unknown OXYCODONE 04/19/2018 14 - Other: See Comments PERCODAN (OXYCODONE-ASPIRIN) 12/17/2004 1 - Mental Status Change Date Reviewed: 03/27/2024 Reviewed by: Flavia Smith APRN.MONOTYPE CASTER - Fully Assessed Reason for Visit: Population Health Navigation Outreach [3910] Cmt: Value [facility] Prescriptions as of 06/21/2024 - furosemide (LASIX) [...] Obstructive sleep apnea (more content not included)... [facility] 04-26-2024 Note HNO ID: [id number] Author: TALIA FERREIRA MA Service: ? Author Type: Field Talent Qualification Specialist Type: Progress Notes Filed: 04/26/2024 14:42 Note [...] Ferreira MA April 26, 2024 2:37 PM [facility] 04-26-2024 History of Present illness Narrative POPULATION [...] 2024 2:37 PM documented in this encounter [facility] 04-26-2024 Note Patient Outreach (NE TNAV) ARTURO PEDERSEN ([id number]) 1940 M Date Time Provider Department 04/26/24 [...] Change Date Reviewed: 03/27/2024 Reviewed by: Flavia Smtih APRN.MONOTYPE CASTER - Fully Assessed Reason for Visit: Population [...] Anxiety [F41.9] 12/23/2021 Atherosclerotic heart disease of [place] coronar*10/19/2017 Cerebrovascular accident (CVA) (HCC) [I63.9] 12/23/2021 [...] Encounter Status:Closed by TALIA FERREIRA on 04/26/24 [facility] 04-09-2024 Miscellaneous Notes Prescription Refill Information The [...] 2024 11:10 AM documented in this encounter [facility] 04-09-2024 Telephone encounter Note Prescription Refill Information [...] Ann LPN April 09, 2024 11:10 AM [facility] 03-27-2024 History of Present illness Narrative Radiology [...] PATIENT PRESENTS WITH AN IMPLANTABLE OR ATTACHED DATA INTEGRATION ANALYST: No RADIOLOGY DEPARTMENT: CT; Exam(s) Completed: Chest PERIPHERAL IV DATA: Not applicable SIGNED BY: RT Alfonso(R) March 27, 2024 3:57 PM documented in this encounter [facility] 03-27-2024 Note HNO ID: [id number] Author: DEANNE SAMUELS RT(Lillie) Service: ? Author Type: Overcoiler Type: Progress Notes Filed: 03/27/2024 15:57 Note [...] PATIENT PRESENTS WITH AN IMPLANTABLE OR ATTACHED DATA INTEGRATION ANALYST: No RADIOLOGY DEPARTMENT: CT; Exam(s) Completed: Chest PERIPHERAL IV DATA: Not applicable SIGNED BY: RT Alfonso(R) March 27, 2024 3:57 PM [facility] 03-27-2024 Instructions Flavia Smith APRN.[facility] - 03/27/2024 2:58 PM EST Fluticasone-salmeterol [...] get the results. documented in this encounter [facility] 03-27-2024 History of Present illness Narrative Images from the original note were not included. Pulmonary Medicine Patients name: Arturo Campbell PCP: Paddy Zaidi MD CC: follow-up HPI: Arturo Pedersen is a 83 year old male former 60-rjff-usgy smoker quitting in 1992 with PMH significant [...] Had also just previously been hospitalized at [facility] for Pneumonia. At his last [...] tightness. Has frequent wheezing that prompts his assistant womens volleyball coach to remind him to use Albuterol. No [...] 160-9-4.8 mcg/actuation HFA aerosol inhaler Generic drug: vlvjslocof-pwjofedd-odlwelmlwn Inhale 2 Puffs as instructed two times [...] which included preparing to see the patient, nrtz-yy-miyc patient care, completing clinical documentation, performing a medically appropriate examination, counseling and educating the patient/family/caregiver, and ordering medications, tests, or procedures. documented in this encounter [facility] 03-27-2024 Note HNO ID: [id number] Author: FLAVIA SMITH APRN.CNP Service: ? Author Type: Nurse Practitioner Type: Progress Notes Filed: 03/27/2024 17:53 Note Text: Pulmonary Medicine Patients name: Arturo Campbell PCP: Paddy Zaidi MD CC: follow-up HPI: Arturo Pedersen is a 83 year old male former 20-dtvs-lxyw smoker quitting in 1992 with PMH significant [...] Had also just previously been hospitalized at [facility] for Pneumonia. At his last [...] tightness. Has frequent wheezing that prompts his assistant womens volleyball coach to remind him to use Albuterol. No [...] 160-9-4.8 mcg/actuation HFA aerosol inhaler Generic drug: nippidennw-tdpvfvbs-ozlhrhaepk Inhale 2 Puffs as instructed two times [...] HENT: Head: Normoc (more content not included)... [facility] 03-27-2024 Note HNO ID: [id number] Author: SHELLY SIMS RPFT Service: ? Author [...] Patient does not have a faster pace [facility] 03-27-2024 Procedure note Associated Ord er(s): OXIMETRY [...] Patient does not have a faster pace [facility] 03-27-2024 Procedure note Associated Ord er(s): OXIMETRY [...] a faster pace documented in this encounter [facility] 03-27-2024 Note HNO ID: [id number] Author: SHELLY SIMS RPFT Service: ? Author Type: Respiratory Therapist Type: Progress Notes Filed: 03/27/2024 13:50 Note Text: PULM FUNCTION: Provider: Raina Huynh MD Assisting Tech: Shelly Sims RPFT Oximetry - Ambulation: 1 [facility] 03-27-2024 History of Present illness Narrative PULM FUNCTION: Provider: Raina Huynh MD Assisting Tech: Shelly Sims RPFT Oximetry - Ambulation: 1 documented in this encounter [facility] 03-21-2024 Telephone encounter Note I spoke with [...] this week, but they declined. Lacie Muñoz [facility] 03-21-2024 Miscellaneous Notes I spoke with Adrian, [...] with Dr. Zaidi this week Hever Martínez APRN.MONOTYPE CASTER Patient states he has discussed some issues [...] medical attention. ISAUROI documented in this encounter [facility] 03-21-2024 Telephone encounter Note Please offer appointment with Dr. Zaidi this week Hever Martínez APRN.MONOTYPE CASTER [facility] 03-21-2024 Telephone encounter Note Hui states patient was supposed to have a refill of the Lasix after an OV on 02/14/2024, it was not prescribed. Has been out since that visit. Please address. Rx pended. [facility] 03-21-2024 Miscellaneous Notes Hui states patient was supposed to have a refill of the Lasix after an OV on 02/14/2024, it was not prescribed. Has been out since that visit. Please address. Rx pended. documented in this encounter [facility] 03-21-2024 Telephone encounter Note Patient states he [...] ED if sx warrant medical attention. FYI [facility] 03-21-2024 Telephone encounter Note Spoke to Hui and patient at length. Patient will take 7.5 mg of Coumadin tomorrow then resume taking 2.5 mg like he has been. Will have BW done around 03/29. Tracker done [facility] 03-21-2024 Miscellaneous Notes Spoke to Hui and patient at length. Patient will take 7.5 mg of Coumadin tomorrow then resume taking 2.5 mg like he has been. Will have BW done around 03/29. Tracker done Called [phone]. No answer. Mailbox still full. Called Hui at [phone] Vm still full-could not leave message. Called [...] a day. Call Hui back with response [phone]-did advise her to clean out VM so [...] Paddy Zaidi MD documented in this encounter [facility] 03-20-2024 Note HNO ID: [id number] Author: ELENITA DEY MA Service: ? Author Type: Field Talent Qualification Specialist Type: Progress Notes Filed: 03/20/2024 16:32 Note [...] Dey MA March 20, 2024 4:29 PM [facility] 03-20-2024 History of Present illness Narrative POPULATION [...] 2024 4:29 PM documented in this encounter [facility] 03-20-2024 Note Patient Outreach (NE TNAV) ARTURO PEDERSEN ([id number]) 1940 M Date Time Provider Department 03/20/24 [...] Date Reviewed: 03/05/2024 Reviewed by: Pantea, Edwina, FACILITIES PROJECT MANAGER - Fully Assessed Reason for Visit: Population Health Navigation Outreach [3910] Cmt: [employer] High Risk Attempt #1 Prescriptions as of 03/20/2024 - warfarin (COUMADIN) 2.5 mg tablet TAKE 1 TABLET BY MOUTH ONCE DAILY DIRECTED - ytusnflbco-ynctczov-dgbxbrqwcz (BREZTRI AEROSPHERE) 160-9-4.8 mcg/actuation HFA aerosol inhaler [...] Anxiety [F41.9] 12/23/2021 Atherosclerotic heart disease of [place] coronar*10/19/2017 Cerebrovascular accident (CVA) (HCC) [I63.9] 12/23/2021 [...] Encounter Status:Closed by ELENITA DEY on 03/20/24 [facility] 03-19-2024 Telephone encounter Note Called [phone]. No answer. Mailbox still full. [facility] 03-17-2024 Telephone encounter Note Called Hui at [phone] Vm still full-could not leave message. Called all other listed numbers- no answer. VM's are all full-could not leave message. Not active on MyChart. Will need to try again later. Violetta Humphrey RN [facility] 03-16-2024 Telephone encounter Note Just take 1 time dose of 5 mg. One extra pill just one dose. Check INR in 2 weeks Paddy Zaidi MD [facility] 03-16-2024 Telephone encounter Note Spoke to Hui- states he has been taking warfarin every day, 2.5 mg. Never misses a day. Call Hui back with response [phone]-did advise her to clean out VM so we can leave messages. Violetta Humphrey RN [facility] 03-13-2024 Telephone encounter Note Prescription Refill [...] Ann LPN March 13, 2024 8:22 AM [facility] 03-13-2024 Miscellaneous Notes Prescription Refill Information The [...] 2024 8:22 AM documented in this encounter [facility] 03-12-2024 Telephone encounter Note Called pt, no answer. LVM to call office back [facility] 03-07-2024 Telephone encounter Note Called all numbers listed in chart- no answer. No VM available to leave message. Not on MYChart. Will need to try again later. Violetta Humphrey RN [facility] 03-06-2024 Telephone encounter Note INR is a little low , have you been taking warfarin 2.5 mg daily every day? May need to increase dose a bit. Please review with patient and advise. Paddy Zaidi MD [facility] 03-06-2024 Telephone encounter Note Breztri and [...] inquire about medication assistance. Edwina Jones LPN [facility] 03-06-2024 Miscellaneous Notes Breztri and Trelegy both [...] to afford it. documented in this encounter [facility] 03-06-2024 Telephone encounter Note Analilia - Pharmacist from [facility] calling and asking if there is an alternative to the Breztri inhaler? Patient has a $100.00 copay and is unable to afford it. [facility] 03-05-2024 History of Present illness Narrative Images from the original note were not included. . [facility] [place] Note Patient name: Arturo Pedersen PCP: Paddy Zaidi MD Referring Physician: Hever Martínez CNP Consultation requested by Hever Martínez for an opinion regarding COPD. My final recommendations will be communicated back to the requesting physician by way of shared Medical record or letter to requesting physician via US mail. CC: COPD HPI: Arturo Pedersen 83 year old male former 52-fvsg-oica smoker quitting in 1992 with PMH significant for obesity, coronary artery disease s/p CABG and stent, previous stroke, GERD, HLD, prostate cancer s/p radiation, HTN, PAF on AC, central sleep apnea not wearing PAP, chronic hypoxemic respiratory failure being sent for evaluation of COPD. Recently hospitalized at [facility] for pneumonia. CT of the chest [...] recurrent bronchitis. DME: [employer] DATA: PFT: PFT [facility] 10/23/2018; FVC 2.41 L 57% FEV1 1.62 L 54% FEV1/FVC 67% No improvement post-bronchodilator TLC 5.01 L 76% RV 2.60 L 94% RV/TLC 52% DLCO 15.2 73% Imaging / Diagnostic Studies: [facility] MR#: [id number] Acct: [id number] Name: ARTURO PEDERSEN Rep #: [id number] : 1940 M 83 From: Shayne Holt [...] the tongue every 5 minutes as needed. tgftqzjbnv-unbyozqv-mlnnmfhdvb (BREZTRI AEROSPHERE) 160-9-4.8 mcg/actuation HFA aerosol inhaler [...] use: No Drug use: No Worked at [email or web address] for 32 years Pets: None FAMILY HISTORY Problem Relation Age of Onset Heart Father Prostate Cancer Father Alzheimer's Disease Mother PAST SURGICAL HISTORY Procedure Laterality Date ARTHRP ACETBLR/PROX FEM PROSTC AGRFT/ALGRFT CABG (2) VEIN GRAFTS & ARTERIAL GRAFT(S PAST SURGICAL HISTORY OF 07/24/2018 removal of hardware, left thr radiation for prostate cancer TREAT HIP FRACTURE(S) Left 11/2017 hip screw placed [facility] PMH, Social history, family history [...] -Ambulation oximetry testing Raina Huynh MD [facility] [place] documented in this encounter [facility] 03-05-2024 Note HNO ID: [id number] Author: RAINA HUYNH MD Service: ? Author Type: Physician Type: Progress Notes Filed: 03/05/2024 16:00 Note Text: . Res[facility] [place] Note Patient name: Arturo Pedersen PCP: Paddy Zaidi MD Referring Physician: Hveer Martínez CNP Consultation requested by Hever Martínez for an opinion regarding COPD. My final recommendations will be communicated back to the requesting physician by way of shared Medical record or letter to requesting physician via [place] mail. CC: COPD HPI: Arturo Pedersen 83 year old male former 85-opbm-epyg smoker quitting in 1992 with PMH significant for obesity, coronary artery disease s/p CABG and stent, previous stroke, GERD, HLD, prostate cancer s/p radiation, HTN, PAF on AC, central sleep apnea not wearing PAP, chronic hypoxemic respiratory failure being sent for evaluation of COPD. Recently hospitalized at [facility] for pneumonia. CT of the chest [...] recurrent bronchitis. DME: [employer] DATA: PFT: PFT [facility] 10/23/2018; FVC 2.41 L 57% FEV1 1.62 L 54% FEV1/FVC 67% No improvement post-bronchodilator TLC 5.01 L 76% RV 2.60 L 94% RV/TLC 52% DLCO 15.2 73% Imaging / Diagnostic Studies: [facility] MR#: [id number] Acct: [id number] Name: ARTURO PEDERSEN Rep #: [id number] : 1940 83 From: Shayne Holt MD [...] the tongue every 5 minutes as needed. lyuhprtmsm-gauozirt-tmywqyihmt (BREZTRI AEROSPHERE) 160-9-4.8 mcg/actuation HFA aerosol inhaler [...] mouth every morning. (more content not included)... [facility] 03-05-2024 Note HNO ID: [id number] Author: SHELLY SIMS RPFT Service: ? Author Type: Respiratory Therapist Type: Progress Notes Filed: 03/05/2024 15:09 Note Text: PULM FUNCTION: Provider: Raina Huynh MD Assisting Tech: Shelly Sims RPFT Spirometry w/BD: 1 DLCO: 1 [facility] 03-05-2024 History of Present illness Narrative PULM FUNCTION: Provider: Raina Huynh MD Assisting Tech: Shelly Sims RPFT Spirometry w/BD: 1 DLCO: 1 documented in this encounter [facility] 02-16-2024 Telephone encounter Note Patients son aware that medication was sent to [facility] in [place]. Son stated he understood that blood work needed drawn in 1 week in [place]. [facility] 02-16-2024 Miscellaneous Notes Patients son aware that medication was sent to [facility] in [place]. Son stated he understood that blood work needed drawn in 1 week in [place]. Will try warfarin. Start with 2.5 mg [...] for 1x per week, standing order for [place] lab. Once he's on a steady dose [...] of symptoms: N/A Hui Call patient at: [phone] (home) [phone] (cell) Was an appointment scheduled: No Closing statement: Corrina Riggins documented in this encounter [facility] 02-16-2024 Telephone encounter Note Will try warfarin. [...] 1x per sergio . Paddy Zaidi MD [facility] 02-15-2024 Telephone encounter Note Hui, Caregiver, is calling Paddy Zaidi MD today with concern regarding Medication Problem. Patient Jose is $300 with the copay and he cannot afford this. They are asking for Warfarin or another medication. Patient has been identified by name and birthdate. Duration of symptoms: N/A Hui Call patient at: [phone] (home) [phone] (cell) Was an appointment scheduled: No Closing statement: Corrina Riggins [facility] Work Phone: 02-14-2024 Telephone encounter Note The following approved medication requests have been transmitted electronically. Requested Prescriptions Signed Prescriptions Disp Refills ELIQUIS 5 mg tab(s) 180 tablet 3 Sig: Take 1 tablet by mouth two times a day. Authorizing Provider: PADDY ZAIDI MD [facility] 02-14-2024 Miscellaneous Notes The following approved [...] you. Varsha Byers. documented in this encounter [facility] 02-14-2024 Telephone encounter Note [facility] is calling [...] found Please advise. Thank you. Varsha Byers. [facility] 02-14-2024 Telephone encounter Note 1st attempt to reach for scheduling, left voicemail. Adrian was seen at [facility] today, and Hever referred him to see Pulmonology. He was unable to stay for scheduling but he and his caregiver said they would like to do all the appointments at [place]. Although there are many available times to complete the respiratory tests required for new pulmonology appointments on the same day, there are not any openings where both the respiratory tests and the pulmonology provider appointment are available the same day soon. Lacie Muñoz [facility] 02-14-2024 Miscellaneous Notes 1st attempt to reach for scheduling, left voicemail. Adrian was seen at [facility] today, and Hever referred him to see Pulmonology. He was unable to stay for scheduling but he and his caregiver said they would like to do all the appointments at [place]. Although there are many available times to complete the respiratory tests required for new pulmonology appointments on the same day, there are not any openings where both the respiratory tests and the pulmonology provider appointment are available the same day soon. Lacie Muñoz documented in this encounter [facility] 02-14-2024 Note HNO ID: [id number] Author: HEVER MARTÍNEZ APRN.MONOTYPE CASTER Service: ? Author Type: Nurse Practitioner Type: Progress Notes Filed: 02/14/2024 16:39 Note Text: This note was created using [employer]. Subjective Arturo Pedersen is a 83 year old male. 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 Treated for RLL pneumonia at the ER, [...] of AFIB and CAD, never seen a cement car dumper. Uses walker for ambulation, sleeps in the [...] HIP FRACTURE(S) Left 11/2017 hip screw placed [facility] ALL[facility] Aspirin, Oxycodone, and Percodan [...] type (HCC) Recommend to establish care with residential manager, continue oxygen. - CONSULT TO PULMONARY MEDICINE 3. Adjustment disorder with mixed anxiety and depressed mood Increase to 40 mg daily. - PARoxetine (PAXIL) 40 mg tablet; Take 1 tablet by mouth once daily. Dispense: 90 tablet; Refill: 1 4. Paroxysmal atrial fibrillation (HCC) Recommend to repeat labs in 1-2 we (more content not included)... [facility] 02-14-2024 History of Present illness Narrative This note was created using [employer]. Subjective Arturo Pedersen is a 83 year old male. 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 Treated for RLL pneumonia at the ER, [...] of AFIB and CAD, never seen a cement car dumper. Uses walker for ambulation, sleeps in the [...] HIP FRACTURE(S) Left 11/2017 hip screw placed [facility] Aspirin, Oxycodone, and Percodan [...] type (HCC) Recommend to establish care with residential manager, continue oxygen. - CONSULT TO PULMONARY MEDICINE [...] HIGH DOSE, TRIVALENT (FLUZONE HIGH-DOSE) Hever Martínez APRN.MONOTYPE CASTER documented in this encounter [facility] 02-13-2024 Telephone encounter Note Received visit summary for SOB from [facility] Placed in provider's inbox for review. Route to MA scanning [facility] 02-13-2024 Miscellaneous Notes Received visit summary for SOB from [facility] Placed in provider's inbox for review. Route to MA scanning documented in this encounter [facility] 01-02-2024 Telephone encounter Note The following approved medication requests have been transmitted electronically. Requested Prescriptions Signed Prescriptions Disp Refills PARoxetine (PAXIL) 20 mg tablet 30 tablet 5 Sig: Take 1 tablet by mouth once daily. Authorizing Provider: PADDY ZAIDI MD [facility] 01-02-2024 Miscellaneous Notes The following approved medication [...] 2023 10:38 AM documented in this encounter [facility] 12-30-2023 Telephone encounter Note Prescription Refill Information [...] Chayito Thorne December 30, 2023 10:38 AM [facility] 12-21-2023 Telephone encounter Note Received annual oxygen rx from [facility]. Placed in provider's inbox for review. Route to MA fax [facility] 12-21-2023 Miscellaneous Notes Received annual oxygen rx from [facility]. Placed in provider's inbox for review. Route to [place] fax documented in this encounter [facility] 12-01-2023 Telephone encounter Note The following approved medication requests have been transmitted electronically. Requested Prescriptions Signed Prescriptions Disp Refills PARoxetine (PAXIL) 20 mg tablet 30 tablet 5 Sig: Take 1 tablet by mouth once daily. Authorizing Provider: PADDY ZAIDI MD [facility] 12-01-2023 Miscellaneous Notes The following approved medication [...] you. Varsha Byers. documented in this encounter [facility] 12-01-2023 Telephone encounter Note Patient is asking [...] found Please advise. Thank you. Varsha Byers. [facility] 11-29-2023 Telephone encounter Note Prescription Refill Information [...] Ann LPN November 29, 2023 2:13 PM [facility] 11-29-2023 Miscellaneous Notes Prescription Refill Information The [...] 2023 2:13 PM documented in this encounter [facility] 09-02-2023 History of Present illness Narrative [facility] DELMIS NURSE - CHART REVIEW Provider [facility] Action 09/22/2022 presented to non [facility] ED following mechanical fall in home. Documentation of encounter indicates no loss of consciousness, not on blood thinning medication. Xray revealed fracture of distal right fibula Pt identified by name and . Reason for Review: Payor request Patient Attributed To: QAE Payer: KEILA Chart Review For: Utilization: ED Total Patient High CostTotal Patient High Cost {HIGH COST:737576) Quality measure review Payor request for assistance Action Taken: No action needed Sarah Robison RN September 02, 2023 11:40 AM documented in this encounter [facility] 08-25-2023 Note HNO ID: [id number] Author: CORRINA COLLAZO, ? Service: ? Author Type: ? Type: Progress Notes Filed: 08/25/2023 15:59 Note Text: [facility] POPULATION HEALTH NAVIGATION OUTREACH Action/FYI Patient needs scheduled for AMW. [facility] 03-15-2023 missed Patient Identified by Name and : Yes, via phone Reason for Outreach Care Gap or Scheduling Wellness Visits Care Gap Reviewed:: Annual Wellness visit [facility] Outreach Outcome/Action Unable to reach patient: Left message Population Health Navigation Workflow Chart Review Payer: [employer] Navigation Signature: Corrina Collazo August 25, 2023 3:58 PM [facility] 08-25-2023 History of Present illness Narrative [facility] POPULATION HEALTH NAVIGATION OUTREACH Action/FYI Patient needs scheduled for AMW. [facility] 03-15-2023 missed Patient Identified by Name and : Yes, via phone Reason for Outreach Care Gap or Scheduling Wellness Visits Care Gap Reviewed:: Annual Wellness visit [facility] Outreach Outcome/Action Unable to reach patient: Left message Population Health Navigation Workflow Chart Review Payer: [employer] Navigation Signature: Corrina Collazo August 25, 2023 3:58 PM documented in this encounter [facility] 08-25-2023 Note Patient Outreach (AG AC) ARTURO PEDERSEN ([id number]) 1940 M Date Time Provider Department 08/25/23 CORRINA COLLAZO [facility] During your visit today, we recorded the following information about you: Corrina Collazo 08/25/2023 3:59 PM Signed [facility] POPULATION HEALTH NAVIGATION OUTREACH Action/FYI Patient needs scheduled for AMW. [facility] 03-15-2023 missed Patient Identified by Name and : Yes, via phone Reason for Outreach Care Gap or Scheduling Wellness Visits Care Gap Reviewed:: Annual Wellness visit [facility] Outreach Outcome/Action Unable to reach patient: Left [...] Anxiety [F41.9] 12/23/2021 Atherosclerotic heart disease of [place] coronar*10/19/2017 Cerebrovascular accident (CVA) (HCC) [I63.9] 12/23/2021 [...] Encounter Status:Closed by CORRINA COLLAZO on 08/25/23 [facility] 08-03-2023 History of Present illness Narrative POPULATION [...] 2023 1:42 PM documented in this encounter [facility] 07-11-2023 Telephone encounter Note Adrian is calling Paddy Zaidi MD today with concern regarding Medication Request Disp Refills Start End potassium chloride (K-TAB) 10 mEq tablet 180 tablet 3 05/21/2022 08/19/2022 Sig: Take 2 tablets by mouth every morning. Sent to pharmacy as: potassium chloride (K-TAB) 10 mEq tablet Class: Normal [facility] [place]. No need to call patient if sent to pharmacy. Thank you. Patient has been identified by name and birthdate. Duration of symptoms: N/A Person calling: self Call patient at: on cell [phone] (home) [phone] (cell) Was an appointment scheduled: No Closing statement: Results or non-symptom based questions: Thank you for calling [facility], your call will be returned within the next business day. Isabell Riggins [facility] 07-11-2023 Miscellaneous Notes Adrian is calling Paddy Zaidi MD today with concern regarding Medication Request Disp Refills Start End potassium chloride (K-TAB) 10 mEq tablet 180 tablet 3 05/21/2022 08/19/2022 Sig: Take 2 tablets by mouth every morning. Sent to pharmacy as: potassium chloride (K-TAB) 10 mEq tablet Class: Normal [facility] [place]. No need to call patient if sent to pharmacy. Thank you. Patient has been identified by name and birthdate. Duration of symptoms: N/A Person calling: self Call patient at: on cell [phone] (home) [phone] (cell) Was an appointment scheduled: No Closing statement: Results or non-symptom based questions: Thank you for calling [facility], your call will be returned within the next business day. Isabell Riggins documented in this encounter [facility] 07-11-2023 Telephone encounter Note Patient has been [...] found Please advise. Thank you. Isabell Riggins. [facility] 07-11-2023 Miscellaneous Notes Patient has been identified [...] you. Isabell Riggins. documented in this encounter [facility] 06-13-2023 Telephone encounter Note Called and notified pt. Pt indicated understanding. [facility] 06-13-2023 Miscellaneous Notes Called and notified pt. [...] Paddy Zaidi MD documented in this encounter [facility] 06-13-2023 Telephone encounter Note Kidney, liver function [...] Blood count is normal. Paddy Zaidi MD [facility] 06-07-2023 History of Present illness Narrative CHIEF [...] 2023 9:45 AM documented in this encounter [facility] 06-03-2023 Telephone encounter Note Called patient. He [...] limit his ability to leave home. Called [facility] at [phone]. Patient currently has the full size home [...] would just need an order faxed over. [facility] 06-03-2023 Miscellaneous Notes Called patient. He [...] limit his ability to leave home. Called [facility] at [phone]. Patient currently has the full size home [...] Patient aware RX will be sent to [facility] pharmacy. No need to notify patient. Varsha Byers documented in this encounter [facility] 05-30-2023 Telephone encounter Note LM for patient to have fasting labs drawn. Patient has medicare wellness appt 06/23/2023 [facility] 05-27-2023 Telephone encounter Note Overdue for lab [...] For neuropathy Authorizing Provider: PADDY ZAIDI MD [facility] 05-27-2023 Telephone encounter Note Pharmacy verified in [...] 06/02/2022 134/68 Please advise. Talia Ann LPN [facility] 05-27-2023 Telephone encounter Note Please also refill [...] Patient aware RX will be sent to [facility] pharmacy. No need to notify patient. Varsha Byers [facility] 04-15-2023 History of Present illness Narrative POPULATION HEALTH NAVIGATION OUTREACH [facility] Discuss/Due for: Medicare Wellness, MyChart Activation [...] Medicare Annual Wellness Visit 06/23/[address] [facility] with PADDY ZAIDI - MEDICARE WELLNESS Z00.00, HCC GAP CLOSURE HCC related Navigation Signature: Corrina Barakat MA April 15, 2023 11:52 AM documented in this encounter [facility] 04-08-2023 Miscellaneous Notes The following approved medication [...] Gabrielle Rosenthal MA documented in this encounter [facility] 03-18-2023 Miscellaneous Notes Received visit summary, labs, imaging, EKG for SOB from [facility]. Placed in provider's inbox for review. Route to [place] scanning. documented in this encounter [facility] 03-15-2023 Discharge summary Note Date/Time March 15, 2023 1:58pm [facility] Medical Records Department [address] [place] [address] [place] [address] Emergency Department Summary 03/15/23 MR#: [id number] Acct: [id number] Name: ARTURO PEDERSEN Rep #:[id number] : 1940 82 From: Parker Metzger MD [...] exacerbation) Recent Illness/Hospitalization: No PFSH [facility] Medical History Atherosclerosis of coronary artery of [place] heart without angina pectoris Central sleep apnea [...] 80.9 H Lymph % (Auto) 8.8 L [place] % (Auto) 6.8 Eos % (Auto) 2.1 [...] duration 70 ms, QT duration 334 ms. [place] is normal.) Treatment and Re-Evaluation :: Patient [...] HTN (hypertension), Atherosclerosis of coronary artery of [place] heart without angina pectoris, Stage 2 moderate [...] your Primary Care Provider. Call [facility] ([phone]) or report to the closest Emergency Room. Call 911 if necessary. 03/15/23 1559 <Electronically signed by Parker Metzger MD> Cosigner Signature (if applicable): CC: Dr. Shayne Zaidi MD ~ Signed [facility] Work Phone: 1(634) 769-901411-21-2023 Miscellaneous Notes* Telephone Encounter - Ge Will - 12/28/2022 1:00 PM EST Order signed by PCP and faxed. * Telephone Encounter - Ge Will - 12/28/2022 8:14 AM EST Received annual oxygen prescription order form (renewal date 12/08/21) from [employer]. Placed in provider's inbox for review. Route to [place] fax [phone] documented in this encounterUniversity [facility]23 Miscellaneous Notes* Telephone Encounter - Ge Will - 09/23/2022 8:10 AM EDT Received ED visit summary and xrays for lower extremity injusry from [facility] ED. Placed in provider's inbox for review. Route to [place] scanning. documented in this encounterUniversity Hospitals [facility]08-14-2023 Hospital Discharge instructions Additional Instructions Closed fracture of ankle. Maintain splint. Usual walker do not put weight on your right lower extremity. Take pain medications as prescribed. Continue to ice and elevate for swelling. Call office of Dr. Pozo for appointment to be seen on Tuesday or Tuesday.[facility] Work Phone: [phone]) 789-295707-14-2023 Miscellaneous Notes* Addendum Note - Talia Ann [...] potassium chloride,spironolactone. Please advise documented in this encounterUniversity Hospitals [facility]05-16-2023 Miscellaneous Notes* Telephone Encounter - Talia Ann LPN - 06/22/2022 9:08 AM EDT LM for patient to call office. * Telephone Encounter - Hever Santiago APRN.CNP - 06/22/2022 8:49 AM EDT Please call patient and remind him to get his repeat chest xray completed in the next week, order placed. Hever Santiago APRN.CNP documented in this encounterUniversity Hospitals [facility]04-26-2023 History of Present illness Narrative* Hever Santiago [...] HIP FRACTURE(S) Left 11/2017 hip screw placed [facility] Aspirin, Oxycodone, and Percodan [...] depression/anxiety. Hever Santiago APRN.CNP documented in this encounterUniversity Hospitals [facility]04-19-2023 Miscellaneous Notes* Telephone Encounter - Violetta Humphrey RN - 05/26/2022 1:28 PM EDT Notified patient-he agrees to plan. Scheduled f/u. Patient verbalizes understanding and has no other questions or concerns at this time. Violetta Humphrey RN Reason for Disposition Health Information question, no triage required and triager able to answer question Protocols used: Information Only Call - No [id number] * Telephone Encounter - Magdy Gloria RN [...] doing. Hever Santiago APRN.SHANNAN documented in this encounterUniversity Hospitals [facility]04-15-2023 History of Present illness Narrative* [place], [...] 22, 2022 11:25 AM documented in this encounterUniversity Hospitals [facility]04-14-2023 History of Present illness Narrative* Paddy Zaidi MD - 05/21/2022 3:59 PM EDT CHIEF COMPLAINT Patient presents with: Follow Up HISTORY OF PRESENT ILLNESS Arturo Pedersen is a 81 year old male who presents here today for a follow up. I last saw this patient on . Pt is accompanied by his nephew. CAD / Afib Admitted [facility] Cath/ stent placed, no f/u with cardiology. - Pt notes after walking out to car after eating at [employer], , Pt feels like he will pass out. - Pt nephew notes he experiences similar episodes when getting out of the car after going to [facility] - Pt checks his blood pressure at home and records good numbers - Pt nephew notes Pt has trouble walking; he has coughing spells - Pt uses two pillows to lay in bed. Cardiac Cath Intervention on 12-16-2021 Cardiac Cath Intervention [facility] [address] [place] [id number] Cardiac Cath Intervention MR#: [id number] Acct: [id number] Name: ARTURO PEDERSEN Rep #: [id number] : 1940 81 From: Dallas Muller MD PCP: Dr. Shayne Zaidi MD Status:ADM IN Patient Name: ARTURO PEDERSEN Study Date: 12/16/2021 Performing: Tiago Burden MD Ht: 71 inches 180.34 cm : 1940 Wt: 194.29 lbs 88.13 kg Age: 81 Gender: male BSA: 2.08 PROCEDURE(S) PERFORMED IC12-(64301/C9600)KIRK W/WO PTCA, SINGLE CORONARY ARTERY CLINICAL PROFILE AND CO-MORBIDITIES Indications: Suspected CAD Heart Failure: NYHA Class: 2, Newly Diagnosed: Yes, Heart Failure Type: Diastolic Stress/Imaging Stress/Image Study Performed: No CONCLUSIONS Successful KRIK to distal LM RECOMMENDATIONS DESCRIPTION OF PROCEDURE [...] XB3.5 100cm Guide Catheter Grey .014 [employer] Fisher Straight 190cm Chadwick Sci EMERGE MR 3.00x08 BALLOON Chadwick Sci Synergy MR KIRK 3.50x08 Medtronic NC EUPHORA RX 3.5x08 BALLOON COPD/ JONATHAN? CPAP - Pt notes difficulty tolerating his CPAP machine; he notes the pressure is too high Sees residential manager Dr Riley at [facility] A-Fib - Pt is on Eliquis [...] 2.970 Assessment/Plan (I25.119) Coronary artery disease involving [place] coronary artery of [place] heart with angina pectoris (HCC) (primary encounter [...] 21, 2022 6:20 PM documented in this encounterUniversity Hospitals [facility]04-07-2023 Miscellaneous Notes* Addendum Note - Hever Franklin Ma - 05/14/2022 3:37 PM EDTAddended by: HEVER FRANKLIN MA on: 05/14/2022 03:37 PM Modules accepted: Orders * Telephone Encounter - Hever Franklin Ma - 05/14/2022 3:36 PM EDT Last appointment: 12/23/21 Next appointment: 05/23/22 Pharmacy verified in [place]. Refill(s) requested: Requested Prescriptions Pending Prescriptions Disp [...] Order(s) pended. Please advise. Hever Franklin Ma, MEDICAL RECORD CONSULTANT * Telephone Encounter - Lacie Muñoz - 05/14/2022 3:24 PM EDT Adrian came by and needs refills of all of his medications sent to [facility] pharmacy in [place]. Can someone assist him with his RX refills? He is totally out of gabapentin but also requesting atorvastatin, spironolactone, escitalopram oxalate, atenolol, levothyroxine, potassium chloride. I have scheduled Adrian for a routine check up since he has not been seen since last fall. 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 Could someone advise Adrian when and if RX refills havebeen sent? Thank you, Lacie Muñoz documented in this encounterUniversity Hospitals Elyria Medical Center11-21-2022 Miscellaneous Notes* Telephone Encounter - Ge Will - 12/28/2021 2:02 PM EST Received visit summary for sleep apnea and COPD from [facility]. Placed in provider's inbox for review. Route to [place] scanning. documented in this encounterUniversity Hospitals Elyria Medical Center11-18-2022 Miscellaneous Notes* Telephone Encounter - Talia Ann LPN - 12/25/2021 11:42 AM EST Received 12/25/2021 from [facility]. Placed in provider's inbox for review. Route to [place] for scanning documented in this encounterUniversity Hospitals Elyria Medical Center11-16-2022 Instructions* Patient Instructions* Paddy Zaidi MD - 12/23/2021 11:48 AM EST Take 1/2 tablet of the atenolol daily (25 mg) documented in this encounterUniversity Hospitals Elyria Medical Center11-16-2022 History of Present illness Narrative* Paddy Zaidi [...] Essential hypertension (I25.119) Coronary artery disease involving [place] coronary artery of [place] heart with angina pectoris (HCC) Comment: breathing [...] December 23, 2021 2:07PM documented in this encounterUniversity Hospitals Elyria Medical Center11-16-2022 Miscellaneous Notes* Telephone Encounter - Ge Will - 12/23/2021 9:51 AM EST Received EKG from [facility]. Placed in provider's inbox for review. Route to [place] scanning. documented in this encounterUniversity Hospitals Elyria Medical Center11-14-2022 Miscellaneous Notes* Telephone Encounter - Talia Ann LPN - 12/21/2021 11:00 AM EST Received 12/18/2021 from [facility]. Placed in provider's inbox for review. Route to [place] for scanning. documented in this [facility]11-14-2022 Miscellaneous Notes* Telephone Encounter - Talia Ann LPN - 12/21/2021 10:57 AM EST Received 12/21/2021 from [facility]. Placed in provider's inbox for review. Route to [place] for scanning documented in this encounterUniversity Hospitals Elyria Medical Center11-10-2022 Miscellaneous Notes* Telephone Encounter - Ge Confer - 12/17/2021 3:17 PM EST Received liver us for elevated lft's from [facility]. Placed in provider's inbox for review. Route to MA scanning. documented in this encounterUniversity Hospitals Elyria Medical Center11-09-2022 Miscellaneous Notes* Telephone Encounter - Ge Confer - 12/16/2021 3:08 PM EST Received cardiac cath intervention/diagnostic procedure note and EKG's 12/14, 12/15, 12/16 from [facility]. Placed in provider's inbox for review. Route to MA scanning. documented in this encounterUniversity Hospitals Elyria Medical Center11-08-2022 Miscellaneous Notes* Telephone Encounter - Ge Confer - 12/15/2021 8:54 AM EST Received ED summary, labs, imaging for SOB and chest pain from [facility]. Placed in provider's inbox for review. Route to MA scanning. documented in this encounterUniversity Hospitals Ely[facility] Center10-10-2022 Miscellaneous Notes* Telephone Encounter - Paddy Zaidi [...] 11/16/2021 10:28 AM EDT Pharmacy verified in [place] Patient has been identified by name and [...] advise. Talia Ann LPN documented in this encounterUniversity Hospitals Elyria Medical Center08-09-2022 Miscellaneous Notes* Telephone Encounter - Jessi Sotelo [...] recheck. Hever Santiago APRN.CNP documented in this encounterUniversity Hospitals Elyria Medical Center08-04-2022 Miscellaneous Notes* Telephone Encounter - Ge Will [...] 06/22/21 Next appointment: n/a Pharmacy verified in [place]. Refill(s) requested: Pending Prescriptions Disp Refills ATENOLOL [...] Timothy Maradiaga Ma, CMA documented in this encounterUniversity Hospitals Elyria Medical Center05-16-2022 History of Present illness Narrative* Hever Santiago [...] 1 Hever Santiago APRN.CNP documented in this encounter[facility] Miscellaneous Notes* Telephone Encounter - Jessi Sotelo - 06/10/2021 5:20 PM EDT Called patient and got appointment scheduled * Telephone Encounter - Hever Santiago APRN.CNP - 06/10/2021 10:27 AM EDT Patient is due for a 6 month chronic care visit, please schedule with either provider. Hever Santiago APRN.CNP * Telephone Encounter - Corrina Riggins - 06/09/2021 3:55 PM EDT Pharmacy verified in [place] Patient has been identified by name and [...] advise. Corrina Preciado Pss documented in this encounterUniversity [facility]04-14-[facility]22 Miscellaneous Notes* Telephone Encounter - Paddy Zaidi [...] 12-17-20 Next appointment: na Pharmacy verified in [place]. Refill(s) requested: Pending Prescriptions Disp Refills ESCITALOPRAM 20 MG TABLET 30 tablet 0 Sig: Take 1 tablet by mouth once daily KARLA: Yes Order(s) pended. Please advise. Haily Avila MA, [facility]* Diagnosis Essential hypertension Unspecified essential hypertension Hypokalemia Hypopotassemia documented [facility] this encounter [facility]* Diagnosis Essential hypertension- Primary Unspecified essential hypertension Pure hypercholesterolemia Acquired hypothyroidism Unspecified hypothyroidism Adjustment disorder with mixed anxiety and depressed mood Peripheral polyneuropathy Unspecified hereditary and idiopathic peripheral neuropathy [facility]* Diagnosis Essential hypertension Unspecified essential hypertension Hypokalemia Hypopotassemia documented [facility]* Diagnosis Peripheral polyneuropathy Unspecified hereditary and idiopathic peripheral neuropathy [facility]* Diagnosis Onset Date Resolution Status Non-STEMI (non-ST elevated myocardial infarction) acute Paroxysmal atrial fibrillation with RVR acute Pneumococcal pneumonia acute Acute exacerbation of COPD with asthma [facility] Work Phone: Evaluation note* Diagnosis Onset Date Resolution Status Non-STEMI (non-ST elevated myocardial infarction) acute Paroxysmal atrial fibrillation with RVR acute Pneumococcal pneumonia acute Acute exacerbation of COPD with asthma chronic HTN (hypertension) [facility] Work Phone: Evaluation note* Diagnosis COPD with exacerbation (HCC)- Primary Obstructive chronic bronchitis with exacerbation Hypertensive urgency Unspecified essential hypertension Coronary artery disease involving [place] coronary artery of [place] heart with angina pectoris (HCC) S/P angioplasty with stent Other postprocedural status 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) Pneumonia of left upper lobe due to infectious organism Essential hypertension Unspecified essential hypertension Obstructive sleep apnea on CPAP Obstructive sleep apnea (adult) (pediatric) Hospital discharge follow-up Other follow-up examination documented [facility] this encounter [facility]* Diagnosis Onset Date Resolution Status Non-STEMI (non-ST elevated myocardial infarction) acute Paroxysmal atrial fibrillation with RVR acute Acute exacerbation of COPD with asthma chronic HTN (hypertension) chronic 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 [facility] Work Phone: Evaluation note* Diagnosis Medication management Encounter for long-term (current) use of other medications Acquired hypothyroidism Unspecified hypothyroidism documented [facility] this encounter [facility]* Diagnosis Mixed hyperlipidemia Peripheral polyneuropathy Unspecified hereditary and idiopathic peripheral neuropathy Essential hypertension Unspecified essential hypertension Hypothyroidism, unspecified type Hypokalemia Hypopotassemia documented in this encounter [facility]* Diagnosis 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 Essential hypertension Unspecified essential hypertension Hypokalemia Hypopotassemia Peripheral polyneuropathy Unspecified hereditary and idiopathic peripheral neuropathy Acquired hypothyroidism Unspecified hypothyroidism Anxiety Anxiety state, unspecified Paroxysmal atrial fibrillation (HCC) Atrial fibrillation SOB (shortness of breath) Shortness of breath Mixed hyperlipidemia Hypothyroidism, unspecified type Chronic obstructive pulmonary disease, unspecified COPD type (HCC) documented in this encounter [facility]* Diagnosis Pneumonia of right middle lobe due to infectious organism- Primary documented in this encounter [facility]* Diagnosis Pneumonia of right middle lobe due to infectious organism- Primary ED (erectile dysfunction) of organic origin Impotence of organic origin Adjustment disorder with mixed anxiety and depressed mood documented in this encounter [facility]* Diagnosis Hypothyroidism, unspecified type Mixed hyperlipidemia documented in this encounter [facility] CenterEvaluation noteNo assessment information availableWHocking [facility] Work Phone: Evaluation note* Diagnosis Hypothyroidism, unspecified type Essential hypertension Unspecified essential hypertension Mixed hyperlipidemia Peripheral polyneuropathy Unspecified hereditary and idiopathic peripheral neuropathy documented in this encounter [facility] note* Diagnosis 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 Hypothyroidism, unspecified type Essential hypertension Unspecified essential hypertension Mixed hyperlipidemia Peripheral polyneuropathy Unspecified hereditary and idiopathic peripheral neuropathy SOB (shortness of breath) Shortness of breath Hypoxemia documented in this encounter [facility] note* Diagnosis Essential hypertension Unspecified essential hypertension Hypothyroidism, unspecified type documented in this encounter [facility] note* Diagnosis Hypokalemia Hypopotassemia documented in this encounter [facility] note* Diagnosis Coronary artery disease involving [place] coronary artery of [place] heart with angina pectoris (HCC) Paroxysmal atrial fibrillation (HCC) Atrial fibrillation SOB (shortness of breath) Shortness of breath documented in this encounter [facility] note* Diagnosis Pneumonia of right lower lobe due to infectious organism- Primary Chronic obstructive pulmonary disease, unspecified COPD type (HCC) Adjustment disorder with mixed anxiety and depressed mood Paroxysmal atrial fibrillation (HCC) Atrial fibrillation Encounter for immunization Need for other specified prophylactic vaccination against single bacterial disease documented in this encounter [facility] note* Diagnosis Chronic atrial fibrillation (HCC)- Primary 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 Long-term (current) use of anticoagulants documented in this encounter [facility] note* Diagnosis Chronic obstructive pulmonary disease, unspecified COPD type (HCC) documented in this encounter [facility] note* Diagnosis Chronic obstructive pulmonary disease, unspecified COPD type (HCC) documented in this encounter [facility] note* Diagnosis Chronic obstructive pulmonary disease, unspecified COPD type (HCC) Chronic obstructive pulmonary disease, unspecified COPD type (HCC) Stage 3 severe COPD by GOLD classification ([facility])- Primary Pneumonia of left lower lobe due to infectious organism Lung nodules Other nonspecific abnormal finding of lung field Former smoker Personal history of tobacco use, presenting hazards to health Chronic hypoxemic respiratory failure ([facility]) Chronic respiratory failure documented in this encounter [facility] note* Diagnosis Chronic obstructive pulmonary disease, unspecified COPD type (HCC)- Primary documented in this encounter [facility] note* Diagnosis Stage 3 severe COPD by GOLD classification ([facility])- Primary Hypoxia Hypoxemia Pneumonia of left lower lobe due to infectious organism Lung nodules Other nonspecific abnormal finding of lung field documented in this encounter [facility]* Diagnosis Pneumonia of left lower lobe due to infectious organism Lung nodules Other nonspecific abnormal finding of lung field documented [facility] this encounter [facility]* Diagnosis Mixed hyperlipidemia Essential hypertension Unspecified essential hypertension [facility] this encounter [facility]* Diagnosis Hypothyroidism, unspecified type Peripheral polyneuropathy Unspecified hereditary and idiopathic peripheral neuropathy documented in this encounter [facility] note* Diagnosis Oxygen dependent- Primary Dependence on supplemental oxygen Atherosclerotic cardiovascular disease Anxiety attack Panic 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 Leg swelling Swelling of limb Adjustment disorder with mixed anxiety and depressed mood PAD (peripheral artery disease) Peripheral vascular disease, unspecified Acquired hypothyroidism Unspecified hypothyroidism Pure hypercholesterolemia Idiopathic peripheral neuropathy Unspecified hereditary and idiopathic peripheral neuropathy Atherosclerosis of [place] coronary artery of [place] heart without angina pectoris documented [facility] this encounter [facility]* Diagnosis Adjustment disorder with mixed anxiety and depressed mood Hypokalemia Hypopotassemia documented in this encounter [facility] note* Diagnosis Hypokalemia Hypopotassemia documented in this encounter [facility] note* Diagnosis Hypothyroidism, unspecified type documented in this encounter [facility] for referral (narrative)* Outpatient Procedure (Routine) - Closed Specialty Diagnoses / Procedures Referred By Contac Referred [facility] Diagnoses Coronary artery disease involving [place] coronary artery of [place] heart with angina pectoris (HCC) Paroxysmal atrial fibrillation (HCC) Procedures ECG COMPLETE ECG ROUTINE ECG W/LEAST 12 LDS W/I&R Paddy Zaidi MD [address] [place] [address] [facility] [place] [address] [place] [address] Referral ID Status Reason Start Date Expiration Date V isits Requested Visits Authorized [id number] Closed Auto-Generate d Referral 05/21/2022 05/21/2023 1 1 [facility] for referral (narrative)* Outpatient Procedure (Routine) - Authorized Specialty Diagnoses / Procedures Referred By Contac t Referred To Contact [facility] Diagnoses 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) Hypoxemia Procedures SIX MINUTE WALK CARDIOPULMONARY EXERCISE STRESS Paddy Zaidi MD [address] [place] [address] Respiratory [place] [phone] Referral ID Status Reason Start Date Expiration Date Visits Requested Visits Authorized [id number] Authorized Auto-Generat ed Referral 06/07/2023 07/06/2024 1 1 [facility] for referral (narrative)* Outpatient Procedure (Routine) - Authorized Specialty Diagnoses / Procedures Referred By Contac t Referred To [facility] Diagnoses Chronic obstructive pulmonary disease, unspecified COPD type (HCC) Procedures OXIMETRY WITH AMBULATION NONINVASIVE EAR/PULSE OXIMETRY MULTIPLE Raina Curz MD [address] [place] [address] Respiratory [place] [phone] Referral ID Status Reason Start Date Expiration Date Visits Requested Visits Authorized [id number] Authorized Auto-Generat ed Referral 03/05/2024 04/04/2025 1 1 * MRI/CT (Routine) - Authorized Specialty Diagnoses / Procedures Referred By Contac t Referred To Contact CT IMAGING Diagnoses Pneumonia of left lower lobe due to infectious organism Lung nodules Procedures CT CHEST WO IVCON DIAGNOSTIC COMPUTED TOMOGRAPHY THORAX W/O CNTRST Raina Huynh MD [address] [place] [address] Ct Imaging [id number] Referral ID Status Reason Start Date Expiration Date Visits Requested Visits Authorized [id number] Authorized Auto-Generat ed Referral 03/05/2024 04/04/2025 1 1 * Outpatient Procedure (Routine) - Closed Specialty Diagnoses / Procedures Referred By Contac t Referred To Contact [facility] Diagnoses Chronic obstructive pulmonary disease, unspecified COPD type (HCC) Procedures LUNG DIFFUSION CAPACITY (DLCO) DIFFUSING CAPACITY Raina Huynh MD [address] [place] [address] [facility] [place] [address] [place] [address] Referral ID Status Reason Start Date Expiration Date V isits Requested Visits Authorized [id number] Closed Auto-Generate d Referral 03/05/2024 04/04/2025 1 1 * Outpatient Procedure (Routine) - Closed Specialty Diagnoses / Procedures Referred By Contac t Referred To Contact [facility] Diagnoses Chronic obstructive pulmonary disease, unspecified COPD type (HCC) Procedures SPIROMETRY WITH DILATOR IF OBSTRUCTED BRNCDILAT RSPSE SPMTRY PRE&POST-BRNCDILAT ADMRaina Farooq MD [address] [facility] [place] [address] [facility] [place] [address] [place] [address] Referral ID Status Reason Start Date Expiration Date V isits Requested Visits Authorized [id number] Closed Auto-Generate d Referral 03/05/2024 04/04/2025 1 1 [facility] Summary Purpose Family History Relationship Condition Age [...] Will No December 14 5:17pm 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 No December 14, 2021 5:17pm Advance Directive Response Recorded Date/ Time Living Will No September 22 7:03pm 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 Yes September 22 7:03pm Name of Medical 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 GILA PEDERSEN September 22, 2022 7:03pm Advance Directive Response Recorded Date/ Time Living Will No March 15 2:08pm 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 Yes March 15, 2023 2:08pm Name of Medical 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 Gila March 15, 2023 2:08pm Chief Complaint [...] fibrillation (HCC) Procedures CONSULT TO CARDIOLOGY OFFICE/OUTPATIENT [facility] 60 MINUTES Hever Martínez, MEDICAL FILE CLERK.MONOTYPE CASTER [address] [place] [address] Referral ID Status Reason Start Date Expiration Date Visits Requested Visits Authorized [id number] Authorized PCP Requested Referral 02/14/2024 02/13/2025 1 1 Additional Source Comments (unrecognized sect ion and content) No Status Records FoundNo Status Records FoundNo Status Records FoundNo Status Records Found INFORMATION SOURCE (unrecogn ized section and content) DATE CREATED AUTHOR 06/30/2018 [facility] DATE CREATED AUTHOR AUTHOR'S ORGANIZ ATION 08/29/2023 [facility] DATE CREATED AUTHOR AUTHOR'S ORGANIZ ATION 03/03/2024 [facility] DATE CREATED AUTHOR AUTHOR'S ORGANIZ ATION 09/08/2024 [facility] Source Comments (unrecognize d section and content) In the event this informatio n is protected by the Federal Confidentiality of Alcohol and Drug Abuse Patient Records regulations: The Federal rules restrict any use of the information to criminally investigate or prosecute any alcohol or drug abuse patient.[facility] CenterIn the event this information is protected by the Federal Confidentiality of Alcohol and Drug Abuse Patient Records regulations: The Federal rules restrict any use of the information to criminally investigate or prosecute any alcohol or drug abuse patient.[facility] CenterIn the event this information is protected by the Federal Confidentiality of Alcohol and Drug Abuse Patient Records regulations: The Federal rules restrict any use of the information to criminally investigate or prosecute any alcohol or drug abuse patient.[facility] CenterIn the event this information is protected by the Federal Confidentiality of Alcohol and Drug Abuse Patient Records regulations: The Federal rules restrict any use of the information to criminally investigate or prosecute any alcohol or drug abuse patient.[facility] CenterIn the event this information is protected by the Federal Confidentiality of Alcohol and Drug Abuse Patient Records regulations: The Federal rules restrict any use of the information to criminally investigate or prosecute any alcohol or drug abuse patient.[facility] CenterIn the event this information is protected by the Federal Confidentiality of Alcohol and Drug Abuse Patient Records regulations: The Federal rules restrict any use of the information to criminally investigate or prosecute any alcohol or drug abuse patient.[facility] CenterIn the event this information is protected by the Federal Confidentiality of Alcohol and Drug Abuse Patient Records regulations: The Federal rules restrict any use of the information to criminally investigate or prosecute any alcohol or drug abuse patient.[facility] CenterIn the event this information is protected by the Federal Confidentiality of Alcohol and Drug Abuse Patient Records regulations: The Federal rules restrict any use of the information to criminally investigate or prosecute any alcohol or drug abuse patient.[facility] CenterIn the event this information is protected by the Federal Confidentiality of Alcohol and Drug Abuse Patient Records regulations: The Federal rules restrict any use of the information to criminally investigate or prosecute any alcohol or drug abuse patient.[facility] CenterIn the event this information is protected by the Federal Confidentiality of Alcohol and Drug Abuse Patient Records regulations: The Federal rules restrict any use of the information to criminally investigate or prosecute any alcohol or drug abuse patient.[facility] CenterIn the event this information is protected by the Federal Confidentiality of Alcohol and Drug Abuse Patient Records regulations: The Federal rules restrict any use of the information to criminally investigate or prosecute any alcohol or drug abuse patient.[facility] CenterIn the event this information is protected by the Federal Confidentiality of Alcohol and Drug Abuse Patient Records regulations: The Federal rules restrict any use of the information to criminally investigate or prosecute any alcohol or drug abuse patient.[facility] CenterIn the event this information is protected by the Federal Confidentiality of Alcohol and Drug Abuse Patient Records regulations: The Federal rules restrict any use of the information to criminally investigate or prosecute any alcohol or drug abuse patient.[facility] CenterIn the event this information is protected by the Federal Confidentiality of Alcohol and Drug Abuse Patient Records regulations: The Federal rules restrict any use of the information to criminally investigate or prosecute any alcohol or drug abuse patient.[facility] CenterIn the event this information is protected by the Federal Confidentiality of Alcohol and Drug Abuse Patient Records regulations: The Federal rules restrict any use of the information to criminally investigate or prosecute any alcohol or drug abuse patient.[facility] CenterIn the event this information is protected by the Federal Confidentiality of Alcohol and Drug Abuse Patient Records regulations: The Federal rules restrict any use of the information to criminally investigate or prosecute any alcohol or drug abuse patient.[facility] CenterIn the event this information is protected by the Federal Confidentiality of Alcohol and Drug Abuse Patient Records regulations: The Federal rules restrict any use of the information to criminally investigate or prosecute any alcohol or drug abuse patient.[facility] CenterIn the event this information is protected by the Federal Confidentiality of Alcohol and Drug Abuse Patient Records regulations: The Federal rules restrict any use of the information to criminally investigate or prosecute any alcohol or drug abuse patient.[facility] CenterIn the event this information is protected by the Federal Confidentiality of Alcohol and Drug Abuse Patient Records regulations: The Federal rules restrict any use of the information to criminally investigate or prosecute any alcohol or drug abuse patient.[facility] CenterIn the event this information is protected by the Federal Confidentiality of Alcohol and Drug Abuse Patient Records regulations: The Federal rules restrict any use of the information to criminally investigate or prosecute any alcohol or drug abuse patient.[facility] CenterIn the event this information is protected by the Federal Confidentiality of Alcohol and Drug Abuse Patient Records regulations: The Federal rules restrict any use of the information to criminally investigate or prosecute any alcohol or drug abuse patient.[facility] CenterIn the event this information is protected by the Federal Confidentiality of Alcohol and Drug Abuse Patient Records regulations: The Federal rules restrict any use of the information to criminally investigate or prosecute any alcohol or drug abuse patient.[facility] CenterIn the event this information is protected by the Federal Confidentiality of Alcohol and Drug Abuse Patient Records regulations: The Federal rules restrict any use of the information to criminally investigate or prosecute any alcohol or drug abuse patient.[facility] CenterIn the event this information is protected by the Federal Confidentiality of Alcohol and Drug Abuse Patient Records regulations: The Federal rules restrict any use of the information to criminally investigate or prosecute any alcohol or drug abuse patient.[facility] CenterIn the event this information is protected by the Federal Confidentiality of Alcohol and Drug Abuse Patient Records regulations: The Federal rules restrict any use of the information to criminally investigate or prosecute any alcohol or drug abuse patient.[facility] CenterIn the event this information is protected by the Federal Confidentiality of Alcohol and Drug Abuse Patient Records regulations: The Federal rules restrict any use of the information to criminally investigate or prosecute any alcohol or drug abuse patient.[facility] CenterIn the event this information is protected by the Federal Confidentiality of Alcohol and Drug Abuse Patient Records regulations: The Federal rules restrict any use of the information to criminally investigate or prosecute any alcohol or drug abuse patient.[facility] CenterIn the event this information is protected by the Federal Confidentiality of Alcohol and Drug Abuse Patient Records regulations: The Federal rules restrict any use of the information to criminally investigate or prosecute any alcohol or drug abuse patient.[facility] CenterIn the event this information is protected by the Federal Confidentiality of Alcohol and Drug Abuse Patient Records regulations: The Federal rules restrict any use of the information to criminally investigate or prosecute any alcohol or drug abuse patient.[facility] CenterIn the event this information is protected by the Federal Confidentiality of Alcohol and Drug Abuse Patient Records regulations: The Federal rules restrict any use of the information to criminally investigate or prosecute any alcohol or drug abuse patient.[facility] CenterIn the event this information is protected by the Federal Confidentiality of Alcohol and Drug Abuse Patient Records regulations: The Federal rules restrict any use of the information to criminally investigate or prosecute any alcohol or drug abuse patient.[facility] CenterIn the event this information is protected by the Federal Confidentiality of Alcohol and Drug Abuse Patient Records regulations: The Federal rules restrict any use of the information to criminally investigate or prosecute any alcohol or drug abuse patient.[facility] CenterIn the event this information is protected by the Federal Confidentiality of Alcohol and Drug Abuse Patient Records regulations: The Federal rules restrict any use of the information to criminally investigate or prosecute any alcohol or drug abuse patient.[facility] CenterIn the event this information is protected by the Federal Confidentiality of Alcohol and Drug Abuse Patient Records regulations: The Federal rules restrict any use of the information to criminally investigate or prosecute any alcohol or drug abuse patient.[facility] CenterIn the event this information is protected by the Federal Confidentiality of Alcohol and Drug Abuse Patient Records regulations: The Federal rules restrict any use of the information to criminally investigate or prosecute any alcohol or drug abuse patient.[facility] CenterIn the event this information is protected by the Federal Confidentiality of Alcohol and Drug Abuse Patient Records regulations: The Federal rules restrict any use of the information to criminally investigate or prosecute any alcohol or drug abuse patient.[facility] CenterIn the event this information is protected by the Federal Confidentiality of Alcohol and Drug Abuse Patient Records regulations: The Federal rules restrict any use of the information to criminally investigate or prosecute any alcohol or drug abuse patient.[facility] CenterIn the event this information is protected by the Federal Confidentiality of Alcohol and Drug Abuse Patient Records regulations: The Federal rules restrict any use of the information to criminally investigate or prosecute any alcohol or drug abuse patient.[facility] CenterIn the event this information is protected by the Federal Confidentiality of Alcohol and Drug Abuse Patient Records regulations: The Federal rules restrict any use of the information to criminally investigate or prosecute any alcohol or drug abuse patient.[facility] CenterIn the event this information is protected by the Federal Confidentiality of Alcohol and Drug Abuse Patient Records regulations: The Federal rules restrict any use of the information to criminally investigate or prosecute any alcohol or drug abuse patient.[facility] CenterIn the event this information is protected by the Federal Confidentiality of Alcohol and Drug Abuse Patient Records regulations: The Federal rules restrict any use of the information to criminally investigate or prosecute any alcohol or drug abuse patient.[facility] CenterIn the event this information is protected by the Federal Confidentiality of Alcohol and Drug Abuse Patient Records regulations: The Federal rules restrict any use of the information to criminally investigate or prosecute any alcohol or drug abuse patient.[facility] CenterIn the event this information is protected by the Federal Confidentiality of Alcohol and Drug Abuse Patient Records regulations: The Federal rules restrict any use of the information to criminally investigate or prosecute any alcohol or drug abuse patient.[facility] CenterIn the event this information is protected by the Federal Confidentiality of Alcohol and Drug Abuse Patient Records regulations: The Federal rules restrict any use of the information to criminally investigate or prosecute any alcohol or drug abuse patient.[facility] CenterIn the event this information is protected by the Federal Confidentiality of Alcohol and Drug Abuse Patient Records regulations: The Federal rules restrict any use of the information to criminally investigate or prosecute any alcohol or drug abuse patient.[facility] CenterIn the event this information is protected by the Federal Confidentiality of Alcohol and Drug Abuse Patient Records regulations: The Federal rules restrict any use of the information to criminally investigate or prosecute any alcohol or drug abuse patient.[facility] CenterIn the event this information is protected by the Federal Confidentiality of Alcohol and Drug Abuse Patient Records regulations: The Federal rules restrict any use of the information to criminally investigate or prosecute any alcohol or drug abuse patient.[facility] CenterIn the event this information is protected by the Federal Confidentiality of Alcohol and Drug Abuse Patient Records regulations: The Federal rules restrict any use of the information to criminally investigate or prosecute any alcohol or drug abuse patient.[facility] CenterIn the event this information is protected by the Federal Confidentiality of Alcohol and Drug Abuse Patient Records regulations: The Federal rules restrict any use of the information to criminally investigate or prosecute any alcohol or drug abuse patient.[facility] CenterIn the event this information is protected by the Federal Confidentiality of Alcohol and Drug Abuse Patient Records regulations: The Federal rules restrict any use of the information to criminally investigate or prosecute any alcohol or drug abuse patient.[facility] CenterIn the event this information is protected by the Federal Confidentiality of Alcohol and Drug Abuse Patient Records regulations: The Federal rules restrict any use of the information to criminally investigate or prosecute any alcohol or drug abuse patient.[facility] CenterIn the event this information is protected by the Federal Confidentiality of Alcohol and Drug Abuse Patient Records regulations: The Federal rules restrict any use of the information to criminally investigate or prosecute any alcohol or drug abuse patient.[facility] CenterIn the event this information is protected by the Federal Confidentiality of Alcohol and Drug Abuse Patient Records regulations: The Federal rules restrict any use of the information to criminally investigate or prosecute any alcohol or drug abuse patient.[facility] CenterIn the event this information is protected by the Federal Confidentiality of Alcohol and Drug Abuse Patient Records regulations: The Federal rules restrict any use of the information to criminally investigate or prosecute any alcohol or drug abuse patient.[facility] CenterIn the event this information is protected by the Federal Confidentiality of Alcohol and Drug Abuse Patient Records regulations: The Federal rules restrict any use of the information to criminally investigate or prosecute any alcohol or drug abuse patient.[facility] CenterIn the event this information is protected by the Federal Confidentiality of Alcohol and Drug Abuse Patient Records regulations: The Federal rules restrict any use of the information to criminally investigate or prosecute any alcohol or drug abuse patient.[facility] CenterIn the event this information is protected by the Federal Confidentiality of Alcohol and Drug Abuse Patient Records regulations: The Federal rules restrict any use of the information to criminally investigate or prosecute any alcohol or drug abuse patient.[facility] CenterIn the event this information is protected by the Federal Confidentiality of Alcohol and Drug Abuse Patient Records regulations: The Federal rules restrict any use of the information to criminally investigate or prosecute any alcohol or drug abuse patient.[facility] CenterIn the event this information is protected by the Federal Confidentiality of Alcohol and Drug Abuse Patient Records regulations: The Federal rules restrict any use of the information to criminally investigate or prosecute any alcohol or drug abuse patient.[facility] CenterIn the event this information is protected by the Federal Confidentiality of Alcohol and Drug Abuse Patient Records regulations: The Federal rules restrict any use of the information to criminally investigate or prosecute any alcohol or drug abuse patient.[facility] CenterIn the event this information is protected by the Federal Confidentiality of Alcohol and Drug Abuse Patient Records regulations: The Federal rules restrict any use of the information to criminally investigate or prosecute any alcohol or drug abuse patient.[facility] CenterIn the event this information is protected by the Federal Confidentiality of Alcohol and Drug Abuse Patient Records regulations: The Federal rules restrict any use of the information to criminally investigate or prosecute any alcohol or drug abuse patient.[facility] CenterIn the event this information is protected by the Federal Confidentiality of Alcohol and Drug Abuse Patient Records regulations: The Federal rules restrict any use of the information to criminally investigate or prosecute any alcohol or drug abuse patient.[facility] CenterIn the event this information is protected by the Federal Confidentiality of Alcohol and Drug Abuse Patient Records regulations: The Federal rules restrict any use of the information to criminally investigate or prosecute any alcohol or drug abuse patient.[facility] CenterIn the event this information is protected by the Federal Confidentiality of Alcohol and Drug Abuse Patient Records regulations: The Federal rules restrict any use of the information to criminally investigate or prosecute any alcohol or drug abuse patient.[facility] CenterIn the event this information is protected by the Federal Confidentiality of Alcohol and Drug Abuse Patient Records regulations: The Federal rules restrict any use of the information to criminally investigate or prosecute any alcohol or drug abuse patient.[facility] CenterIn the event this information is protected by the Federal Confidentiality of Alcohol and Drug Abuse Patient Records regulations: The Federal rules restrict any use of the information to criminally investigate or prosecute any alcohol or drug abuse patient.[facility] CenterIn the event this information is protected by the Federal Confidentiality of Alcohol and Drug Abuse Patient Records regulations: The Federal rules restrict any use of the information to criminally investigate or prosecute any alcohol or drug abuse patient.[facility] CenterIn the event this information is protected by the Federal Confidentiality of Alcohol and Drug Abuse Patient Records regulations: The Federal rules restrict any use of the information to criminally investigate or prosecute any alcohol or drug abuse patient.[facility] CenterIn the event this information is protected by the Federal Confidentiality of Alcohol and Drug Abuse Patient Records regulations: The Federal rules restrict any use of the information to criminally investigate or prosecute any alcohol or drug abuse patient.[facility] CenterIn the event this information is protected by the Federal Confidentiality of Alcohol and Drug Abuse Patient Records regulations: The Federal rules restrict any use of the information to criminally investigate or prosecute any alcohol or drug abuse patient.[facility] CenterIn the event this information is protected by the Federal Confidentiality of Alcohol and Drug Abuse Patient Records regulations: The Federal rules restrict any use of the information to criminally investigate or prosecute any alcohol or drug abuse patient.[facility] CenterIn the event this information is protected by the Federal Confidentiality of Alcohol and Drug Abuse Patient Records regulations: The Federal rules restrict any use of the information to criminally investigate or prosecute any alcohol or drug abuse patient.[facility] CenterIn the event this information is protected by the Federal Confidentiality of Alcohol and Drug Abuse Patient Records regulations: The Federal rules restrict any use of the information to criminally investigate or prosecute any alcohol or drug abuse patient.[facility] Reason for Visit (unrecogniz ed section and content) Reason Comments Refill Request Reason Onset Date Comments Refill Request 06/09/2021 Reason Comments Follow Up Reason Comments Results Reason Comments Received Outside Medical Records [facility] ED Reason Comments Received Outside Medical Records [facility] Car diac Cath Reason Comments Received Outside Medical Records Liver U S [facility] Reason Comments Received Outside Medical Records [facility] chest xray 12/18/2021 Reason Comments Received Outside Medical Records [facility] discharge instructions. 12/18/2021 Reason Comments Erroneous encounter-disregard Reason Comments Received Outside Medical Records EKG [facility] Reason Comments Hospital F/U Reason Comments Received Outside Medical Records [facility] 12 lead EKG 12/16/2021 and 12/17/2021 Reason Comments Received Outside Medical Records Pulmona ry Medicine [facility] Reason Comments Medication Problem Reason Onset Date Comments Population Health Navigation Outreach 04/27/2022 HCC Reason Comments Follow Up Reason Comments Follow Up pneumonia Reason Comments Orders Reason Comments Patient Question Reason Comments Received Outside Medical Records [facility] 09/07 07/30 Reason Comments Orders [employer] annual oxygen prescription renewal Reason Comments Received Outside Medical Records [facility] ED 03/15/23 Reason Onset Date Comments [facility] Health Navigation Outreach 04/15/2023 [employer] HCCs 2.16.24 [...] Raina Huynh MD [address] [place] [address] [address] Referral ID Status Reason Start Date Expiration Date V isits Requested Visits Authorized [id number] Closed Auto-Generate d Referral 03/05/2024 04/04/2025 1 1 Specialty Diagnoses / Procedures Referred By Contac t Referred To Contact [facility] Diagnoses Chronic obstructive pulmonary disease, unspecified COPD type (HCC) Procedures LUNG DIFFUSION CAPACITY (DLCO) DIFFUSING CAPACITY Raina Huynh MD [address] [place] [address] [address] Referral ID Status Reason Start Date Expiration Date V isits Requested Visits Authorized [id number] Closed Auto-Generate d Referral 03/05/2024 04/04/2025 1 [...] MULTIPLE DETER Raina Huynh MD [address] [place] [address] Phone: tel: fax: Res[facility] [place] [address] [place] [address] Referral ID Status Reason Start Date Expiration Date V isits Requested Visits Authorized [id number] Closed Auto-Generate d Referral 03/05/2024 04/04/2025 1 1 Reason Comments Established Patient COPD follow up Reason Comments Radiology CT Specialty Diagnoses / Procedures Referred By Jovan t Referred To Contact CT IMAGING Diagnoses Pneumonia of left lower lobe due to infectious organism Lung nodules Procedures CT CHEST WO IVCON DIAGNOSTIC COMPUTED TOMOGRAPHY THORAX W/O Raina Yang MD [address] [place] [address] Phone: tel: fax: [place] [phone] Referral ID Status Reason Start Date Expiration Date V isits Requested Visits Authorized [id number] Closed Auto-Generate d Referral 03/05/2024 04/04/2025 1 1 Reason Onset Date Comments Population Health Navigation Outreach 04/26/2024 [employer] High Risk - Attempt 2 Reason Onset Date Comments Population Health Navigation Outreach 06/18/2024 [facility] Reason Comments Follow Up Multiple issues Reason Onset Date Comments Results 06/29/2024 Reason Comments Patient Update Care Teams (unrecognized sec tion and content) Pig Breeder Relationship Specialty Start Date End Date Paddy Zaidi MD [address] [place] [address] PCP - General Family Practice 05/27/15 Pig Breeder Relationship Specialty Start Date End Date Paddy Zaidi MD [address] [place], [place] [id number] PCP - General Family Practice 05/27/15 Pig Breeder Relationship Specialty Start Date End Date Paddy Zaidi MD [address] [place] [address] PCP - General Family Practice 05/27/15 Pig Breeder Relationship Specialty Start Date End Date Paddy Zaidi MD [facility] [place] [address] PCP - General Family Practice 05/27/15 Pig Breeder Relationship Specialty Start Date End Date Paddy Zaidi MD [address] [place] [address] PCP - General Family Practice 05/27/15 Pig Breeder Relationship Specialty Start Date End Date Paddy Zaidi MD [address] [place] [address] PCP - General Family Medicine 05/27/15 Pig Breeder Relationship Specialty Start Date End Date Paddy Zaidi MD [address] [place] [address], [place] [address] PCP - General Family Medicine 05/27/15 Pig Breeder Relationship Specialty Start Date End Date Paddy Zaidi MD [address] [place] [address], [place] [address] PCP - General Family Medicine 05/27/15 Pig Breeder Relationship Specialty Start Date End Date Paddy Zaidi MD [address] [place] [address], [place] [address] PCP - General Family Medicine 05/27/15 Pig Breeder Relationship Specialty Start Date End Date Paddy Zaidi MD [address] [place] [address], [place] [address] PCP - General Family Medicine 05/27/15 Pig Breeder Relationship Specialty Start Date End Date Paddy Zaidi MD [address] [place] [address], [place] [address] PCP - General Family Medicine 05/27/15 Pig Breeder Relationship Specialty Start Date End Date Paddy Zaidi MD [address] [place] [address], [place] [address] PCP - General Family Medicine 05/27/15 Pig Breeder Relationship Specialty Start Date End Date Paddy Zaidi MD [address] [place] [address] PCP - General Family Medicine 05/27/15 Pig Breeder Relationship Specialty Start Date End Date Paddy Zaidi MD [address] [place] [address] PCP - General Family Medicine 05/27/15 Pig Breeder Relationship Specialty Start Date End Date Paddy Zaidi MD [address] [place] [address] PCP - General Family Medicine 05/27/15 Pig Breeder Relationship Specialty Start Date End Date Paddy Zaidi MD [facility] [place] [address] PCP - General Family Medicine 05/27/15 Pig Breeder Relationship Specialty Start Date End Date Paddy Zaidi MD [address] [place] [address] PCP - General Family Medicine 05/27/15 Pig Breeder Relationship Specialty Start Date End Date Paddy Zaidi MD [address] [place] [address] PCP - General Family Medicine 05/27/15 Pig Breeder Relationship Specialty Start Date End Date Paddy Zaidi MD [address] [place] [address] PCP - General Family Medicine 05/27/15 Pig Breeder Relationship Specialty Start Date End Date Paddy Zaidi MD [address] [place] [address] PCP - General Family Medicine 05/27/15 Team Status: Active Member Role Status Dates Dr. Shayne Zaidi MD Family Provider Active Dr. Shayne Zaidi MD Primary Care Provider Active Team Status: Inactive Member Role Status Dates Dr. Shayne Zaidi MD Primary Care Provider Active Dr. Adrian Eddy DO Emergency Provider Active Pig Breeder Relationship Specialty Start Date End Date Paddy Zaidi MD [address] [place] [address] PCP - General Family Medicine 05/27/15 Pig Breeder Relationship Specialty Start Date End Date Paddy Zaidi MD [address] [facility] [place] [address] PCP - General Family Medicine 05/27/15 Team Status: Inactive Member Role Status Dates Dr. Shayne Zaidi MD Primary Care Provider Active Dr. Parker Metzger MD Emergency Provider Active Pig Breeder Relationship Specialty Start Date End Date Paddy Zaidi MD [address] [place] [address] PCP - General Family Medicine 05/27/15 Pig Breeder Relationship Specialty Start Date End Date Paddy Zaidi MD [address] [place] [address] PCP - General Family Medicine 05/27/15 Pig Breeder Relationship Specialty Start Date End Date Paddy Zaidi MD [address] [place] [address] PCP - General Family Medicine 05/27/15 Pig Breeder Relationship Specialty Start Date End Date Paddy Zaidi MD [address] [place] [address] PCP - General Family Medicine 05/27/15 Pig Breeder Relationship Specialty Start Date End Date Paddy Zaidi MD [address] [place] [address] PCP - General Family Medicine 05/27/15 Pig Breeder Relationship Specialty Start Date End Date Paddy Zaidi MD [address] [place] [address] PCP - General Family Medicine 05/27/15 Pig Breeder Relationship Specialty Start Date End Date Paddy Zaidi MD [address] [place] [address] PCP - General Family Medicine 05/27/15 Pig Breeder Relationship Specialty Start Date End Date Paddy Zaidi MD [address] [place] [address] PCP - General Family Medicine 05/27/15 Hever Martínez APRN.MONOTYPE CASTER [address] [facility] [address] [place], [place] [address] Marriage And Family Therapist Internal Medicine 01/15/24 Pig Breeder Relationship Specialty Start Date End Date Paddy Zaidi MD [address] [place], [place] [address] PCP - General Family Medicine 05/27/15 Hever Martínez, MEDICAL FILE CLERK.MONOTYPE CASTER [address] [facility] [address] [place], [place] [address] Marriage And Family Therapist Internal Medicine 01/15/24 Pig Breeder Relationship Specialty Start Date End Date Paddy Zaidi MD [address] [place], [place] [address] PCP - General Family Medicine 05/27/15 Hever Martínez, MEDICAL FILE CLERK.MONOTYPE CASTER [address] [facility] [facility] [address] [place] [address] Marriage And Family Therapist Internal Medicine 01/15/24 Pig Breeder Relationship Specialty Start Date End Date Paddy Zaidi MD [address] [place], [place] [address] PCP - General Family Medicine 05/27/15 Hever Martínez, MEDICAL FILE CLERK.MONOTYPE CASTER [address] [facility] [facility] [place], [place] [address] Marriage And Family Therapist Internal Medicine 01/15/24 Pig Breeder Relationship Specialty Start Date End Date Paddy Zaidi MD [address] [place], [place] [address] PCP - General Family Medicine 05/27/15 Hever Martínez, MEDICAL FILE CLERK.MONOTYPE CASTER [address] [facility] [address] [place], [place] [address] Marriage And Family Therapist Internal Medicine 01/15/24 Pig Breeder Relationship Specialty Start Date End Date Paddy Zaidi MD [address] [place], [place] [address] PCP - General Family Medicine 05/27/15 Hever Martínez, MEDICAL FILE CLERK.MONOTYPE CASTER [address] [facility] [place], [place] [address] Marriage And Family Therapist Internal Medicine 01/15/24 Pig Breeder Relationship Specialty Start Date End Date Paddy Zaidi MD [address] [place], [place] [id number] PCP - General Family Medicine 05/27/15 Hever Martínez, MEDICAL FILE CLERK.MONOTYPE CASTER [address] [facility] [facility] [place] [id number] Marriage And Family Therapist Internal Medicine 01/15/24 Pig Breeder Relationship Specialty Start Date End Date Paddy Zaidi MD [address] [place], [place] [id number] PCP - General Family Medicine 05/27/15 Hever Martínez APRN.MONOTYPE CASTER [address] [facility] [facility] [place], [place] [address] Marriage And Family Therapist Internal Medicine 01/15/24 Pig Breeder Relationship Specialty Start Date End Date Paddy Zaidi MD [address] [place], [place] [id number] PCP - General Family Medicine 05/27/15 Hever Martínez MEDICAL FILE CLERK.MONOTYPE CASTER [address] [facility] [facility] [place], [place] [id number] Marriage And Family Therapist Internal Medicine 01/15/24 Pig Breeder Relationship Specialty Start Date End Date Paddy Zaidi MD [address] [place], [place] [id number] PCP - General Family Medicine 05/27/15 Hever Martínez, MEDICAL FILE CLERK.MONOTYPE CASTER [address] [facility] [facility] [place], [place] [id number] Marriage And Family Therapist Internal Medicine 01/15/24 Pig Breeder Relationship Specialty Start Date End Date Paddy Zaidi MD [address] [place], [place] [id number] PCP - General Family Medicine 05/27/15 Hever Martínez, MEDICAL FILE CLERK.MONOTYPE CASTER [address] [facility] [address] [place], [place] [id number] Marriage And Family Therapist Internal Medicine 01/15/24 Pig Breeder Relationship Specialty Start Date End Date Paddy Zaidi MD [address] [place], [place] [id number] PCP - General Family Medicine 05/27/15 Hever Martínez, MEDICAL FILE CLERK.MONOTYPE CASTER [address] [facility] [place], [place] [id number] Marriage And Family Therapist Internal Medicine 01/15/24 Pig Breeder Relationship Specialty Start Date End Date Paddy Zadii MD [address] [place], [place] [id number] PCP - General Family Medicine 05/27/15 Hever Martínez, MEDICAL FILE CLERK.MONOTYPE CASTER [address] [facility] [place], [place] [id number] Marriage And Family Therapist Internal Medicine 01/15/24 Pig Breeder Relationship Specialty Start Date End Date Paddy aZidi MD [address] [place], [place] [id number] PCP - General Family Medicine 05/27/15 Hever Martínez, MEDICAL FILE CLERK.MONOTYPE CASTER [address] [facility] [place], [place] [address] Marriage And Family Therapist Internal Medicine 01/15/24 Pig Breeder Relationship Specialty Start Date End Date Paddy Zaidi MD [address] [place], [place] [id number] PCP - General Family Medicine 05/27/15 Hever Martínez, MEDICAL FILE CLERK.MONOTYPE CASTER [address] [facility] [place], [place] [id number] Marriage And Family Therapist Internal Medicine 01/15/24 Goals (unrecognized section and [...] BE BASED ON THE PRIMARY CLINICAL RECORDS. [facility], [facility]. provides no warranty or guarantee of the accuracy or completeness of information in this document.
[2024-09-10] MEDS: guaiFENesin 10 ML UDC (200MG/10ML) 20 ML PO ×3 (02:21→22:20)
[2024-09-10] MEDS: Doxycycline 100 MG in 0.9% Normal Saline (250mL Bag) 250 ML 250 MG IV (03:03)
[2024-09-10 03:33] LABS: Hematocrit 44.1 % (40-54); Hemoglobin 14.3 g/dL (13.0-16.5); Immature Granulocytes Count 0.030 X10^3/uL (0.0-0.0); Mean Corp Hgb Conc 32.4 g/dL (32-36); Mean Corpuscular Volume 95.7 fL (80-94); Mean Platelet Vol. 9.2 fl (6.2-12.0); NRBC Flagged by Analyzer 0 % (0-5); POSITIVE DIFFERENTIAL YES; Platelet Count 224 K/mm3 (150-450); RBC Distribution Width CV 13.2 % (11.6-14.6); RBC Distribution Width SD 47.6 fl (35.1-43.9); Red Blood Count 4.61 M/mm3 (4.6-6.2); White Blood Count 10.8 K/mm3 (4.4-11.0)
[2024-09-10 03:41] LABS: FI02 3.0; SITE Not entered; VBG BASE EXCESS 10 mmol/L (-1.0-3.5); VBG PO2 68 mmHg (25-40); VBG SO2 93 % (50-70); VBG TCO2 37 mmol/L (23-33)
[2024-09-10 03:42] LABS: D-Dimer Quantitative (DVT/PE) 0.39 FEU/ug/m (0.27-0.49)
[2024-09-10 03:52] LABS: Prothrombin Time (Protime)PT. 18.7 SECONDS (11.7-14.9)
[2024-09-10] MEDS: Albuterol 2.5 MG/3 ML VIAL.NEB. INHALATION ×4 (04:00→20:03)
[2024-09-10 04:15] LABS: FOLATES,SERUM (FOLIC ACID) 7.94 ng/mL (4.60-34.80)
[2024-09-10 04:39] LABS: Mucous, Urine 0 SEEN /hpf (<or=2+)
[2024-09-10 05:15] LABS: Color, Urine Yellow (Yellow); Glucose, Dipstick Normal (Normal); Ketone-Dipstick Negative (Negative); Leukocyte Esterase-Dipstick Negative /ul (Negative); Nitrite-Dipstick Negative (Negative); Occult Blood-Urine 10 /ul (Negative); Protein-Dipstick Negative (Negative); Specific Gravity, Urine 1.010 (1.002-1.030); Urine Bilirubin Dipstick Negative (Negative)
[2024-09-10] MEDS: metroNIDAZOLE 500 MG/100 ML BAG 100 MG IV (05:33)
[2024-09-10] MEDS: 0.9% Saline Lock 10 ML Syringe IV ×3 (05:38→17:04)
[2024-09-10 06:20] LABS: Red Blood Cells-Urine 0-5 SEEN /hpf (0-5)
[2024-09-10 06:21] LABS: AST(SGOT) 41 U/L (<=37); Alanine Aminotransfer ALT/SGPT 34 U/L (<=46); Albumin, Serum 3.7 g/dL (3.4-4.8); Alkaline Phosphatase 199 U/L (40-129); Anion Gap 16 (5-15); BUN 21 mg/dL (4-19); BUN/Creat Ratio 27.5 RATIO (10-20); Calcium,Total 8.9 mg/dL (7.6-11.0); Carbon Dioxide 25.7 mmol/L (21.0-32.0); Chloride 98 mmol/L (98-108); Cholesterol 85 mg/dL (<=200); Estimated Creatinine Clearance 80.95 ml/min (50-250); Globulin 3.9 g/dL (2.2-4.2); Glucose 174 mg/dL (70-99); Low Density Lipoprotein Calc. 40 mg/dL; Magnesium 2.1 mg/dL (1.5-2.2); Potassium 3.9 mmol/L (3.3-5.1); Pro- Brain NATRIURETIC PEPTIDE 3825 pg/mL (<=1800); Triglycerides 42 mg/dL; Troponin T High Sensitivity 8 ng/L (<=22); Very Low Density Lipoprotein 8 mg/dL (5-40); Vitamin B12 515 pg/mL (180-914); cholesterol:hdl ratio screen 2.30
[2024-09-10 06:21] LABS: Squamous Epithelial Cells - UA 0-5 SEEN /hpf (0-5)
[2024-09-10 06:32] LABS: Troponin T High Sens 2 HR 7 ng/L (<=22)
--- NOTE | 2024-09-10 07:51 | CON.PCM.CA_ITS ---
Assessment & Plan Assessment/Plan (1) Paroxysmal atrial fibrillation with RVR: PLAN: Patient presents with paroxysmal atrial fibrillation with a rapid ventricular response rate. It appears that he has a pulmonary condition at this time. My recommendation will be to continue the current management and increase the beta-karis to 50 mg a day and restart his anticoagulation. * It is not clear to me whether he is on warfarin for financial reasons or preference. (2) History of coronary artery stent placement: PLAN: He does have a history of coronary disease status post angioplasty and stenting in 2021 of the distal left main and then of the circumflex artery. The saphenous vein graft to the obtuse marginal branch and the ECHEVARRIA to the LAD were noted to be patent there was an occluded right coronary artery with [id number] collaterals. * In light of his negative troponins and his nonacute EKG changes we will continue to maximally medically manage the above. (3) HTN (hypertension): PLAN: His blood pressure is under good control at this time and I would not recommend we make any other changes. Thank you for allowing me to participate in the care of your patient. Please don't hesitate to call if any issues arise. (4) Acute exacerbation of chronic heart failure: PLAN: He does have evidence of congestive heart failure and he will continue on the spironolactone, intravenous Lasix for now, and the beta-karis. * An echocardiogram is being performed to assess his ventricular function. (5) Hyperlipidemia: PLAN: He does have a history of hyperlipidemia. In face of his coronary disease we will continue with high intensity statin. HPI Consult Data Date of Consult: 09/10/24 HPI Narrative HPI Narrative: ARTURO LUNA, is a 83 M who we are asked to see due to atrial fibrillation with a rapid ventricular response rate. He does have a history of hypertension, hyperlipidemia, coronary artery disease status post coronary bypass surgery in 1992 with a ECHEVARRIA to the LAD and a saphenous vein graft to the circumflex artery. He was here in 2021 and had angioplasty and stenting to the circumflex artery. He also at that time was noted to have paroxysmal atrial fibrillation. He however has not had any office follow-up since then. He apparently has had a history of cerebrovascular accident with right hemiparesis chronic HOARSENESS and elevated right hemidiaphragm. Approximately 2 to 3 days prior to admission he had an onset of dyspnea on exertion and a congestive cough with brownish sputum and intermittent difficulty breathing. He denied any pain per se. He was apparently sent to [place] emergency room and a chest x-ray that I reviewed and right hemidiaphragm elevation which was chronic but read as pneumonia he had an elevated proBNP of 2400. He was treated with antibiotics steroids Lasix and an EKG demonstrated atrial fibrillation with a rate of 106 bpm and with his intermittent pleuritic chest discomfort he was admitted here and cardiology was called for further evaluation and management. This morning he appears to be fairly stable his heart rate is in the 90s and he is pleasantly confused but no other problems. 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) Central sleep apnea Stage 2 moderate COPD by GOLD classification HTN (hypertension) Hoarseness left vocal cord paralysis Home Medications ?Medication ?Instructions ?Recorded ?Last Taken ?Type levothyroxine 50 mcg tablet 50 mcg PO DAILY thyroid 12/14/21 History atorvastatin 40 mg tablet 40 mg PO QHS cholesterol 12/14/21 History spironolactone 25 mg tablet 25 mg PO DAILY diuretic 12/14/21 History aspirin 81 mg chewable tablet 81 mg PO DAILY@0800 heal th 12/14/21 12/14/21 History atenolol 50 mg tablet 25 mg PO DAILY bp 12/14/21 1 02/13/21 History potassium chloride 10 mEq 20 meq PO DAILY supplement 1 02/13/21 12/14/21 History tablet,extended release albuterol sulfate 90 mcg/actuation 2 puff inhalation Q 4H PRN PRN 03/15/23 Unknown Rx aerosol inhaler (Ventolin HFA) Wheezing ##1 fluticasone 250 mcg-salmeterol 50 1 inh inhalation Q12 H 09/10/24 Unknown History mcg/dose blistr powdr for inhalation furosemide 20 mg tablet 20 mg PO DAILY 09/10/24 Unkn own History gabapentin 300 mg capsule 300 mg PO BID 09/10/24 Unkno wn History nitroglycerin 0.3 mg sublingual 0.3 mg sublingual Q5M PRN chest 09/10/24 Unknown History tablet pain paroxetine HCl 40 mg tablet 40 mg PO DAILY 09/10/24 Un known History warfarin 2.5 mg tablet 2.5 mg PO DAILY 09/10/24 Unk nown History Allergy/AdvReac Type Severity Reaction Status Date / Time oxycodone (From Percodan) Allergy Other Verified 02/07/24 14:36 Surgical History History of coronary artery stent placement (12/16/21) Cataract extraction status History of hip replacement History of open heart surgery Social History Smoking Status: Former smoker quit date: 02/08/92 pack-years: 37 Tobacco: How many years used: 20 alcohol intake: never substance use type: does not use ROS Constitutional Constitutional: Denies fever(s) or weight loss Eyes Eyes: Reports systems reviewed and no addt'l complaints, except as documented ENT HEENT: Reports systems reviewed and no addt'l complaints, except as documented Cardiovascular Cardiovascular: Reports dyspnea at rest, dyspnea on exertion and palpitations; Denies chest pain at rest, chest pain with activity, edema or paroxysmal nocturnal dyspnea Respiratory/Chest Respiratory/Chest: Reports shortness of breath at rest and shortness of breath with exertion; Denies dyspnea on exertion or productive cough Gastrointestinal Gastrointestinal: Denies change in bowel habits, nausea, vomiting or weight changes Genitourinary Genitourinary: Denies difficulty urinating Musculoskeletal Musculoskeletal: Denies joint stiffness or muscle weakness Integumentary Integumentary: Denies lesions Neurologic Neurologic: Denies dizziness or syncope Psychiatric Psychiatric: Denies anxiety Endocrine Endocrinology: Denies excessive sweating or fatigue Hematologic/Lymphatic Hematologic/Lymphatic: Denies anemia Allergic/Immunologic Allergic/Immunologic: Denies seasonal rhinorrhea Physical Exam Const alert, oriented x3 and no apparent distress General Appearance: cooperative HEENT hearing grossly normal bilaterally Head and Scalp: atraumatic Eyes EOMs intact bilaterally Neck General: normal visual inspection Chest inspection of chest normal and palpation of chest normal Resp normal respiratory effort Auscultation: clear to auscultation bilaterally Cardio S1 normal heart sound and S2 normal heart sound Jugular Venous Distention: JVD Rhythm: abnormal rhythm irregularly irregular GI normal to inspection, nondistended, normoactive bowel sounds Extremity normal capillary refill and no pedal edema Peripheral Pulses: Yes pulses 2+ throughout and femoral pulses present Skin no rashes or lesions noted Neuro oriented x3 and CN's II-XII intact bilaterally Psych Appearance: grossly normal and appropriate Risk Stratification Risk Stratification Applicable: No Objective Data Vital Signs: Vital Signs Temp Pulse Resp BP Pulse Ox O2 Del Method O2 Flow Rate 98 F 62 20 H 135/80 H 96 Nasal Cannula 2 09/10/24 02:00 09/10/24 02:00 09/10/24 05:46 09/10/24 02:00 09/10/24 05:46 09/10/24 05:46 09/10/24 05:46 Oxygen Flow Rate (L/min) 2 Oxygen Delivery Method Nasal Cannula Weight: 209 lb 14.081 oz Body Mass Index (BMI) 29.2 Intake & Output: Intake and Output for Last 24 Hours 09/08/24 09/09/24 09/10/24 23:59 23:59 23:59 Intake Total 400 / 400 Output Total 400 / 400 Balance 0 / 0 Lab / Micro Data 09/10/24 03:19 09/10/24 03:19 Labs: Laboratory Results - last 24 hr 09/10/24 03:19: WBC 10.8, RBC 4.61, Hgb 14.3, Hct 44.1, MCV 95.7 H, MCH 31.0, MCHC 32.4, RDW Std Deviation 47.6 H, RDW Coeff of Erica 13.2, Plt Count 224, MPV 9.2, Immature Gran % (Auto) 0.300, Neut % (Auto) 94.5 H, Lymph % (Auto) 2.2 L, Park % (Auto) 2.8, Eos % (Auto) 0.0, Baso % (Auto) 0.2, Absolute Neuts (auto) 10.2 H, Absolute Lymphs (auto) 0.24 L, Nucleated RBC % 0, PT 18.7 H, INR 1.5, D- Dimer Quant (PE/DVT) 0.39, Sodium 139, Potassium 3.9, Chloride 98, Carbon Dioxide 25.7, Anion Gap 16 H, BUN 21 H, Creatinine 0.75, Estim Creat Clear Calc 80.95, Est GFR (MDRD) Non-Af 89, BUN/Creatinine Ratio 27.5 H, Glucose 174 H, Hemoglobin A1c 5.5, Calcium 8.9, Phosphorus 2.7, Magnesium 2.1, Total Bilirubin 0.73, AST 41 H, ALT 34, Alkaline Phosphatase 199 H, Troponin T High Sens 8, NT pro BNP II 3825 H, Total Protein 7.6, Albumin 3.7, Globulin 3.9, Albumin/Globulin Ratio 0.9, Triglycerides 42, Cholesterol 85, LDL Cholesterol, Calc 40, VLDL Cholesterol 8, HDL Cholesterol 37 L, Cholesterol/HDL Ratio 2.30, Vitamin B12 515, Serum Folate 7.94, TSH 0.518 09/10/24 03:41: Urine Color Yellow, Urine Clarity Clear, Urine pH 6.0, Ur Specific [place] 1.010, Urine Protein Negative, Urine Glucose (UA) Normal, Urine Ketones Negative, Urine Occult Blood 10 H, Urine Nitrite Negative, Urine Bilirubin Negative, Urine Urobilinogen Normal, Ur Leukocyte Esterase Negative, Urine RBC 0-5 SEEN, Urine WBC 0 SEEN, Ur Squamous Epith Cells 0-5 SEEN, Urine Bacteria 1+, Urine Mucus 0 SEEN 09/10/24 04:55: Troponin T Hi Sens 2 Hr 7 Micro: Microbiology 09/10/24 03:41 Urine, Random Legionella Antigen - Final 09/10/24 03:41 Urine, Random Streptococcus pneumoniae Antigen (M - Final ABG Data ABG results: ABG 09/10/24 03:35 Specimen Type ARIEL Sample Site Not entered O2 % 3.0 VBG pH 7.41 VBG pO2 68 H VBG HCO3 35 H VBG Total CO2 37 H VBG O2 Sat (Calc) 93 H VBG Base Excess 10 H POC Mix VBG pCO2 Pt Tmp 54.8 H O2 Delivery Device Cannula Cardiology Labs/Tests 09/10/24 03:19: WBC 10.8, RBC 4.61, Hgb 14.3, Hct 44.1, MCV 95.7 H, MCH 31.0, MCHC 32.4, Plt Count 224, MPV 9.2, Immature Gran % (Auto) 0.300, Neut % (Auto) 94.5 H, Lymph % (Auto) 2.2 L, Park % (Auto) 2.8, Eos % (Auto) 0.0, Baso % (Auto) 0.2, Absolute Neuts (auto) 10.2 H, Nucleated RBC % 0, PT 18.7 H, INR 1.5, D- Dimer Quant (PE/DVT) 0.39, Sodium 139, Potassium 3.9, Chloride 98, Carbon Dioxide 25.7, Anion Gap 16 H, BUN 21 H, Creatinine 0.75, Est GFR (MDRD) Non-Af 89, BUN/Creatinine Ratio 27.5 H, Glucose 174 H, Hemoglobin A1c 5.5, Calcium 8.9, Phosphorus 2.7, Magnesium 2.1, Total Bilirubin 0.73, Triglycerides 42, Cholesterol 85, VLDL Cholesterol 8, HDL Cholesterol 37 L, Cholesterol/HDL Ratio 2.30 09/10/24 03:35: VBG pH 7.41, VBG pO2 68 H, VBG HCO3 35 H, VBG O2 Sat (Calc) 93 H , VBG Base Excess 10 H 09/10/24 03:41: Urine Color Yellow, Urine Clarity Clear, Urine pH 6.0, Ur Specific [place] 1.010, Urine Protein Negative, Urine Glucose (UA) Normal, Urine Ketones Negative, Urine Occult Blood 10 H, Urine Nitrite Negative, Urine Bilirubin Negative, Urine Urobilinogen Normal, Ur Leukocyte Esterase Negative, Urine RBC 0-5 SEEN, Urine WBC 0 SEEN Rhythm: EKG: ECHO: Stress Test: Cardiac Cath: PCI: CT Surgery: Holter monitor: EPS: PPM: CXR: Chest CT Scan: Radiography Diagnostic Testing: Radiology Impression Chest CT 09/10/24 01:46 IMPRESSION: Bilateral airspace disease, correlate for aspiration pneumonia. Reading Location: [place] [id number]
[2024-09-10 08:35] LABS: Troponin T High Sens 4 HR 6 ng/L (<=22)
[2024-09-10] MEDS: Lactobacillis Acidophilus 1 CAP PO ×4 (09:26→22:19)
[2024-09-10] MEDS: Potassium Chloride Oral Tablet 20 MEQ PO (09:26)
--- NOTE | 2024-09-10 11:06 | CASEMGMT ---
FREIDA CAIN Assessment: Face to Face with pt for initial transition planning/care coordination assessment. FREIDA CAIN introduced self and role at [facility], pt voices understanding and consents to assessment. Pt is A&O x4 and answers all questions appropriately at this time. Pt sitting up in chair in no distress. Care providers, pharmacy, and demographics verified/updated. Strata: Admitting Dx: PNA, AE CHF, Resp. Insufficiency, Anxiety PCP: [facility] Specialists: Benny Attic Fans Mechanic Preferred Pharmacy: [facility] Insurance: [employer] [facility] Prescription Benefit: yes LNOK: Son, Gigi; Friend, Hui Living Arrangements: Pt lives with friend, Hui in a 1 level home with no steps to enter. ADLs: Hui assists pt with IADLs at home. Transportation: Pt friend provides transportation. DME: O2 through [employer] Hui able to bring in portable O2 at time of DC. Walker, Cane, Scooter, HHC/SNF: Previously at SNF, does not recall where. Denies Hx of HHC services. Pt states no concerns with going home at time of dc. Pt states no further concerns/needs. CM to follow. Advised pt to ask CM if any further question/concerns/needs arise, voices understanding. Pt Goal: Home Plan: Home with friend and family support. Follow for O2 changes. Follow therapy for recommendations. FREIDA CAIN notified RN on floor. Kwasi GUAN CM
--- NOTE | 2024-09-10 15:27 | CASEMGMT ---
Brief Social Work Note Date: 09/10/24 Time: 1400 Sw presented to bedside and introduced self to patient. Sw assisted patient in completing Social Determinants of Health. Patient does not identify any social determinants of health at this time. Beatrice Dubois, TYPING CHECKER, CRM SYSTEM ADMINISTRATOR
--- NOTE | 2024-09-10 15:34 | CHAPLAIN ---
Type of Pastoral Visit _x__ Initial Visit ___ Follow-up Visit ___ On-call Visit ___ General Patient Visit ___ Spiritual Assessment ___ Family Conference ___ Bereavement ___ Rapid Response ___ Code Blue ___ Other (describe below) Pastoral Care Referral From _x__ Patient ___ Family ___ Nurse ___ Physician ___ Insurance Claim Auditor ___ Director Information ___ Other (describe below) Sacrament/Intervention _x__ Active listening ___ Anointing ___ Moravian ___ Bereavement ___ Communion ___ Vicky exploration ___ _x__ Life review _x__ Prayer ___ Reconciliation ___ Sacrament of Sick _x__ Supportive presence ___ Wedding ___ Other (describe below) Pastoral Comments patient gives details about his recent health and then explains some family dynamics and his caregiving situation; pt reviews how he is managing since his 's of four years ago; pt speaks of prayer and welcomes that for his support today; pt welcomes presence and someone to talk with; pt says 'you can come back tomorrow if you want to';
--- NOTE | 2024-09-10 19:25 | PCM.HOSP.N ---
Hospitalist Note Patient was seen and examined briefly today, I have reviewed his medical record, I think that it is unlikely the patient has a significant aspiration pneumonia, nonetheless, I have elected to keep the patient on antibiotics for now but transition him over to oral antibiotics. I talked briefly with cardiology, they recommended adjusting the patient's beta-karis.
[2024-09-11] VITALS (7 sets, daily range): BP systolic 123–150; BP diastolic 74–87; PULSE 81–106; RESP 16–22; TEMP 36.3–36.6; O2SAT 93–97; BMI 28.5
[2024-09-11] MEDS: Albuterol 2.5 MG/3 ML VIAL.NEB. INHALATION ×3 (07:25→19:16)
[2024-09-11 07:32] LABS: Anion Gap 15 (5-15); BUN 38 mg/dL (4-19); BUN/Creat Ratio 43.1 RATIO (10-20); Calcium,Total 9.0 mg/dL (7.6-11.0); Carbon Dioxide 26.8 mmol/L (21.0-32.0); Chloride 96 mmol/L (98-108); Estimated Creatinine Clearance 72.70 ml/min (50-250); Glucose 132 mg/dL (70-99); Potassium 3.9 mmol/L (3.3-5.1)
--- NOTE | 2024-09-11 07:41 | PN.CARD_ITS ---
Subjective Subjective Patient seen and evaluated Objective Data Vital Signs: Vital Signs Temp Pulse Resp BP Pulse Ox O2 Del Method O2 Flow Rate 97.4 F L 88 20 H 148/84 H 93 Nasal Cannula 3 09/11/24 05:02 09/11/24 07:27 09/11/24 07:27 09/11/24 05:02 09/11/24 07:27 09/11/24 07:27 09/11/24 07:27 Oxygen Flow Rate (L/min) 3 Oxygen Delivery Method Nasal Cannula Weight: 204 lb 5.896 oz Body Mass Index (BMI) 28.5 Intake & Output: Intake and Output for Last 24 Hours 09/09/24 09/10/24 09/11/24 23:59 23:59 23:59 Intake Total 1060 / 1060 250 / 250 Output Total 850 / 850 1200 / 1200 Balance 210 / 210 -950 / -950 Lab / Micro Data 09/10/24 03:19 09/11/24 05:38 Labs: Laboratory Results - last 24 hr 09/10/24 07:19: Troponin T Hi Sens 4Hr 6 09/11/24 05:38: Sodium 138, Potassium 3.9, Chloride 96 L, Carbon Dioxide 26.8, Anion Gap 15, BUN 38 H, Creatinine 0.88, Estim Creat Clear Calc 72.70, Est GFR (MDRD) Non-Af 85, BUN/Creatinine Ratio 43.1 H, Glucose 132 H, Calcium 9.0 Micro: Microbiology 09/10/24 04:15 Mucosa - Nose Respiratory Panel (PCR) - Final 09/10/24 03:41 Urine, Random Legionella Antigen - Final 09/10/24 03:41 Urine, Random Streptococcus pneumoniae Antigen (M - Final Cardiology Labs/Tests 09/11/24 05:38: Sodium 138, Potassium 3.9, Chloride 96 L, Carbon Dioxide 26.8, Anion Gap 15, BUN 38 H, Creatinine 0.88, Est GFR (MDRD) Non-Af 85, B UN/Creatinine Ratio 43.1 H, Glucose 132 H, Calcium 9.0 Rhythm: EKG: ECHO: Stress Test: Cardiac Cath: PCI: CT Surgery: Holter monitor: EPS: PPM: CXR: Chest CT Scan: Radiography Diagnostic Testing: Radiology Impression Echocardiogram 09/10/24 01:46 Interpretation Summary Normal LV size. Left ventricular systolic function is lower limits of normal. The estimated ejection fraction is 53 %. Mild focal mitral valve calcification, bileaflet. Pulmonary artery systolic pressure is 40 mmHg. Ordering Physician: Kristopher Mckee Referring Physician: DUNCAN ZAIDI Performed By: Manju Sahu RCS Physical Exam Const alert, oriented x3 and no apparent distress General Appearance: cooperative HEENT hearing grossly normal bilaterally Head and Scalp: atraumatic Eyes EOMs intact bilaterally Neck General: normal visual inspection Chest inspection of chest normal and palpation of chest normal Resp normal respiratory effort Auscultation: clear to auscultation bilaterally Cardio S1 normal heart sound and S2 normal heart sound Jugular Venous Distention: JVD Rhythm: abnormal rhythm irregularly irregular GI normal to inspection, nondistended, normoactive bowel sounds Extremity normal capillary refill and no pedal edema Peripheral Pulses: Yes pulses 2+ throughout and femoral pulses present Skin no rashes or lesions noted Neuro oriented x3 and CN's II-XII intact bilaterally Psych Appearance: grossly normal and appropriate Assessment & Plan Assessment/Plan (1) Paroxysmal atrial fibrillation with RVR: PLAN: Patient presents with paroxysmal atrial fibrillation with a rapid ventricular response rate. It appears that he has a pulmonary condition at this time. My recommendation will be to continue the current management * It is not clear to me whether he is on warfarin for financial reasons or preference. * Will continue the current medical therapy. * Heart rate appears to be under better control at this time I would not make any changes. (2) History of coronary artery stent placement: PLAN: He does have a history of coronary disease status post angioplasty and stenting in 2021 of the distal left main and then of the circumflex artery. The saphenous vein graft to the obtuse marginal branch and the ECHEVARRIA to the LAD were noted to be patent there was an occluded right coronary artery with [id number] collaterals. * In light of his negative troponins and his nonacute EKG changes we will continue to maximally medically manage the above. (3) HTN (hypertension): PLAN: His blood pressure is under good control at this time and I would not recommend we make any other changes. Thank you for allowing me to participate in the care of your patient. Please don't hesitate to call if any issues arise. (4) Acute exacerbation of chronic heart failure: PLAN: He does have evidence of congestive heart failure and he will continue on the spironolactone, intravenous Lasix for now, and the beta-karis. * An echocardiogram demonstrated an ejection fraction of 53%. (5) Hyperlipidemia: PLAN: He does have a history of hyperlipidemia. In face of his coronary disease we will continue with high intensity statin.
[2024-09-11] MEDS: Potassium Chloride Oral Tablet 20 MEQ PO (10:00)
[2024-09-11] MEDS: Lactobacillis Acidophilus 1 CAP PO ×4 (10:00→21:04)
[2024-09-11] MEDS: 0.9% Saline Lock 10 ML Syringe IV ×3 (10:00→21:04)
[2024-09-11] MEDS: guaiFENesin 10 ML UDC (200MG/10ML) 20 ML PO ×2 (10:03→21:04)
--- NOTE | 2024-09-11 13:19 | ST.MBS ---
Modified Barium Swallow Patient Information Study Date: 09/11/24 Study Time: 08:30 Direct Billable Minutes: 120 Total Minutes procedure & reportin Diagnosis: J69.0 - Pneumonitis due to inhalation of food and vomit Referring Physician: Aayush Sibley Medical History: Mr. Pedersen is an 83-year-old male with a complex medical history, including CAD (CABG x2, stents x2), paroxysmal atrial fibrillation (on warfarin), hypertension, hyperlipidemia, hypothyroidism, COPD (Stage 2), central sleep apnea (on CPAP), CVA with right hemiparesis, left vocal cord paralysis, dysphagia, peripheral neuropathy, GERD, depression, prostate cancer (s/p radiation), and osteoarthritis. He is overweight (BMI 29.3) and a former smoker (50 pack-years, quit 1992). He presented with 2?3 days of progressive dyspnea, productive cough, pleuritic chest pain, fatigue, and anxiety. He denied fever, chills, palpitations, or GI/ symptoms. A CXR at [facility] showed right hemidiaphragm elevation and left perihilar opacity suggestive of pneumonia. Labs revealed elevated pro-BNP (2400), WBC 10.2K, and a subtherapeutic INR (1.4). EKG showed atrial fibrillation with HR ~106 bpm. He was treated with IV antibiotics, steroids, nebulizers, diuretics, and lorazepam, then admitted to PCU. Speech therapy was consulted due to concern for aspiration pneumonia (CT chest: bilateral airspace disease). Mr. Pedersen has a history of dysphagia and cognitive deficits, and in 2019, it was recommended that he follow a modified diet with nectar-thick liquids. However, he did not adhere to this recommendation and was admitted on regular textures and thin liquids. Given his history of dysphagia, left vocal cord paralysis, current pneumonia, and signs of aspiration at bedside, a Modified Barium Swallow Study (MBSS) is recommended for objective swallow assessment. Current Diet Ordered: Regular textures / Thin liquids Mental Status: Impaired Respiratory Status: Oxygenating on 3L/M nasal cannula Penetration-Aspiration Scale Penetration-Aspiration Scale: OBJECTIVE ASSESSMENT OF SWALLOW FUNCTION (QUANTITATIVE ? PER TRIAL): PENETRATION / ASPIRATION SCALE (MACE): 1 = does not enter airway 2 = enters airway/above vocal folds/ejected 3 = enters airway/above vocal folds/not ejected 4 = enters airway/contacts vocal folds/ejected 5 = enters airway/contacts vocal folds/not ejected 6 = enters airway/below vocal folds/ejected 7 = enters airway/below vocal folds/not ejected despite effort 8 = enters airway/below vocal folds/no effort VIDEOFLOROSCOPIC SCALE SCORE (MACE): Grade I = aspiration of material that has penetrated into the laryngeal vestibule, intact cough reflex Grade II = aspiration < 10 % of the bolus, intact cough reflex Grade III = aspiration of < 10 % of the bolus, reduced cough reflex or aspiration of > 10 % of the bolus, intact cough reflex Grade IV = aspiration of > 10 % of the bolus, reduced cough reflex Penetration-Aspiration Scale Score Thin Liquid via teaspoon: Result: 5= enters airways/contacts vocal folds/not ejected Thin Liquid via teaspoon Trial 2: Result: 5= enters airways/contacts vocal folds/not ejected Thin Liquid via small single sip: cup: Result: 5= enters airways/contacts vocal folds/not ejected Thin Liquid via small single sip: cup Trial 2: Result: 5= enters airways/contacts vocal folds/not ejected [place] Thick Liquid via small single sip: cup: Result: 2= enter airway/above vocal folds/ejected [place] Thick Liquid via small single sip: cup Trial 2: Result: 3= enters airways/above vocal folds/not ejected [place] Thick Liquid via small single sip: cup Trial 3: Result: 1= does not enter airway Thin Liquid via small single sip: cup Trial 3: Result: 3= enters airways/above vocal folds/not ejected Thin Liquid via small single sip: cup Trial 4: Result: 5= enters airways/contacts vocal folds/not ejected [place] Thick Liquid via small single sip: cup: Result: 1= does not enter airway Pud[place] via teaspoon: Result: 1= does not enter airway Cookie: Result: 1= does not enter airway [place] Thick Liquid via small single sip: cup Trial 4: Result: 1= does not enter airway Thin Liquid via small single sip: cup Trial 5: Result: 8= enters airway/below vocal folds/no effort Oral Phase Labial Seal: No Labial Escape Tongue Control During Bolus Hold: Posterior escape of greater than half of bolus Bolus Preparation/Mastication: Slow prolonged chewing/mashing with complete recollection Bolus Transport/Lingual Motion: Delayed initiation of tongue motion Oral Residue: Trace residue lining oral structures Pharyngeal Phase Initiation of Pharyngeal Swallow: Bolus head in pyriforms Soft Palate Elevation: No bolus between soft palate and pharyngeal wall Laryngeal Elevation: Partial superior movement thyroid cart/partial apprx aryt-epig petiole Anterior Hyoid Excursion: Partial anterior movement Epiglottic Movement: Partial inversion Laryngeal Vestibule Closure at Height of Swallow: Incomplete; narrow column of air/contrast in laryngeal vestibule Pharyngeal Stripping Wave: Present - diminished Pharyngoesophageal Segment Opening: Parital distension and partial duration; parital obstruction of flow Tongue Base Retraction: Wide column of contrast between tongue base & post. 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 During the MBSS, the patient demonstrated slowed mastication of a cookie but achieved complete oral clearance, with only trace residue remaining post-swallow. Penetration to the vocal cords was observed with both thin liquids by teaspoon and by cup. The patient exhibits decreased bolus control, with premature spillage into the pyriform sinuses before the swallow initiates. This spillage spills into the airway, causing laryngeal penetration to the cords. In some trials, the bolus enters the airway prior to the swallow due to delayed pharyngeal swallow onset timing. There is also decreased airway closure, likely due to incomplete laryngeal elevation and closure during the swallow, as well as reduced anterior hyoid excursion. Penetration with thin liquids consistently occurs both before and during the swallow, with definite aspiration observed in one trial with thin liquids by cup, attributed to delayed pharyngeal swallow onset and incomplete laryngeal elevation/closure. Aspiration cannot be ruled out in other trials due to the patient's body habitus, though aspiration is highly suspected. Improved airway protection was noted with nectar-thick and honey-thick liquids. Recommendations Diet: Regular Textures and Mildly Thick Liquids Compensatory Strategies: Small Bites, Small Sips, Slow Rate, Feed only when alert, Multiple Swallows, Alternate bites/solids and sips/liquids, Sitting upright and Remain sitting upright for 30 minutes after PO intake Supervision: 1:1 Direct Supervision Recommend Repeat Modified Barium Swallow: TBD Need for Skilled Speech Therapy Services: Yes Education Completed: 1. Described result of evaluation., 2. Pt understands evaluation & agrees with goals and treatment plan. and 4. Family/caregivers understand evaluation & agree w/ goals & tx plan. Status Active ST Patient: Active Contact Information [facility] Speech Therapy:: Uyen Silva M.A., [facility] COORDINATOR Speech-Language Pathologist [facility] [phone]? ?FAX [phone]? ?[email or web address] [address] [place] [address]? ?[place] [address]
--- NOTE | 2024-09-11 16:16 | PCM.PN.HOSP ---
Reason for Visit Chief Complaint: Shortness of Breath, Cough, Chest Pain, Anxiety and Generalized Weakness. Subjective Subjective Patient was seen and examined today, he is currently on 2.5 L of oxygen at rest. Patient was seen by speech therapy and underwent a modified barium swallow, speech recommended moderately thickened liquids. Patient's atenolol was increased to 50 mg daily by cardiology. He remains on IV Lasix at this time. Objective Data Objective Data Vital Signs: Vital Signs Temp Pulse Resp BP Pulse Ox O2 Del Method O2 Flow Rate 97.6 F L 97 18 142/85 H 97 Nasal Cannula 2.5 09/11/24 15:50 09/11/24 15:50 09/11/24 15:50 09/11/24 15:50 09/11/24 15:50 09/11/24 15:50 09/11/24 15:50 Oxygen Flow Rate (L/min) 2.5 Oxygen Delivery Method Nasal Cannula Weight: 92.7 kg Body Mass Index (BMI) 28.5 Intake & Output: Intake and Output for Last 24 Hours 09/09/24 09/10/24 09/11/24 23:59 23:59 23:59 Intake Total 1060 / 1060 250 / 250 Output Total 850 / 850 1650 / 1650 Balance 210 / 210 -1400 / -1400 Lab / Micro Data 09/10/24 03:19 09/12/24 05:38 Labs: Laboratory Results - last 24 hr 09/11/24 05:38: Sodium 138, Potassium 3.9, Chloride 96 L, Carbon Dioxide 26.8, Anion Gap 15, BUN 38 H, Creatinine 0.88, Estim Creat Clear Calc 72.70, Est GFR (MDRD) Non-Af 85, BUN/Creatinine Ratio 43.1 H, Glucose 132 H, Calcium 9.0 Micro: Microbiology 09/10/24 04:15 Mucosa - Nose Respiratory Panel (PCR) - Final 09/10/24 03:41 Urine, Random Legionella Antigen - Final 09/10/24 03:41 Urine, Random Streptococcus pneumoniae Antigen (M - Final Radiography Diagnostic Testing: Radiology Impression Echocardiogram 09/10/24 01:46 Interpretation Summary Normal LV size. Left ventricular systolic function is lower limits of normal. The estimated ejection fraction is 53 %. Mild focal mitral valve calcification, bileaflet. Pulmonary artery systolic pressure is 40 mmHg. Ordering Physician: Kristopher Mckee Referring Physician: DUNCAN ZAIDI Performed By: Manju Sahu RCS Physical Exam Const alert, oriented x3 and no apparent distress Constitutional Narrative: Patient appears older than stated age General Appearance: cooperative, well kempt and well developed Orientation / Consciousness: awake, oriented to person, oriented to place and oriented to time HEENT normocephalic, head/scalp atraumatic and moist oral mucous membranes Eyes PERRL, EOMs intact bilaterally and conjunctivae normal Neck supple, no JVD, thyroid normal and no carotid bruits General: trachea midline Resp normal respiratory effort, no retractions and no use of accessory muscles Resp Narrative: Breath sounds are distant bilaterally Auscultation: Negative for rales, rhonchi or wheezes Cardio S1 normal heart sound, S2 normal heart sound, no murmurs, no rub and no gallops Cardio Narrative: Heart rate and rhythm is irregular GI normal to inspection, nondistended, normoactive bowel sounds, soft to palpation, non-tender and non-distended Extremity no clubbing, cyanosis or edema Skin no rashes or lesions noted General Skin Exam: no breakdown Neuro oriented x3, CN's II-XII intact bilaterally, moves all extremities, no focal motor deficits and no sensory deficits noted Sensorium / Orientation: awake and alert Speech: speech normal Psych affect normal Assessment & Plan Assessment/Plan (1) Congestive heart failure: PLAN: Plan 1. Acute exacerbation of chronic congestive heart failure with normal ejection fraction-patient will remain on IV Lasix #2 chronic hypoxic respiratory failure-pulse ox will be monitored, oxygen will be adjusted as needed #3 aspiration pneumonia-patient is currently on Augmentin, speech therapy is seeing the patient, his diet has been changed to regular with nectar thickened liquids #4 paroxysmal atrial fibrillation with RVR-again patient's atenolol was increased by cardiology #5 coronary artery disease-patient will remain on his present medication #6 essential hypertension-patient will remain on his current medication #7 hyperlipidemia-patient is currently on a statin #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, he remains on 81 mg aspirin daily #9 hypothyroidism-patient is on Synthroid Total clinical time spent by myself addressing the patient's medical issues, reviewing all of his data, and collaborating with the patient's care team: 50 minutes Charges/Coding Visit Charges Inpatient E&M: 09227 Subs Hosp L3
[2024-09-12] VITALS (7 sets, daily range): BP systolic 142–160; BP diastolic 73–95; PULSE 76–102; RESP 16–18; TEMP 36.5–36.8; O2SAT 93–100; BMI 28.1
--- NOTE | 2024-09-12 04:45 | RAD_ITS ---
PROCEDURE: CHEST PA AND LATERAL 09/12/2024 REASON FOR EXAM: HYPOXIA TECHNIQUE: CHEST PA AND LATERAL COMPARISON: CT 09/10/2024 FINDINGS: Normal heart size. Status post CABG. Elevated right hemidiaphragm. Bibasilar airspace disease, better seen on recent CT, atelectasis/consolidation. No effusion or pneumothorax. L2 compression fracture, no evidence of acuity. RAD/Chest PA and Lateral IMPRESSION: Bibasilar airspace disease, better seen on recent comparison CT [facility]
[2024-09-12] MEDS: Albuterol 2.5 MG/3 ML VIAL.NEB. INHALATION ×2 (06:54→13:01)
[2024-09-12 07:38] LABS: Anion Gap 11 (5-15); BUN 44 mg/dL (4-19); BUN/Creat Ratio 48.1 RATIO (10-20); Calcium,Total 8.9 mg/dL (7.6-11.0); Carbon Dioxide 34.3 mmol/L (21.0-32.0); Chloride 96 mmol/L (98-108); Estimated Creatinine Clearance 69.17 ml/min (50-250); Glucose 120 mg/dL (70-99); Potassium 4.0 mmol/L (3.3-5.1)
[2024-09-12] MEDS: Lactobacillis Acidophilus 1 CAP PO ×2 (09:59→14:39)
[2024-09-12] MEDS: Potassium Chloride Oral Tablet 20 MEQ PO (09:59)
[2024-09-12] MEDS: 0.9% Saline Lock 10 ML Syringe IV (10:05)
[2024-09-12] MEDS: guaiFENesin 10 ML UDC (200MG/10ML) 20 ML PO (10:09)
[2024-09-12 13:42] LABS: Prothrombin Time (Protime)PT. 17.8 SECONDS (11.7-14.9)
--- NOTE | 2024-09-12 14:39 | DCINST_ITS ---
Discharge Instructions DC O2, CPAP, BIPAP needs Home O2 Discharge instructions: Yes Type of respiratory needs?: Oxygen Oxygen frequency: Continuous Continuous oxygen liters per minute: 3 L Dressing / Incision Discharge Activity: Return to Normal Activity Weight Bearing Status: Full weight bearing Follow Up Care Test Results: Test results from this visit will be discussed in further detail at your follow- up appointment, if applicable. Discharge Plan Admission Admit Date/Time: 09/10/24 01:26 Primary Reason for Your Visit: Congestive heart failure, aspiration pneumonia, atrial fibrillation Attending Provider: Aayush Sibley Primary Care Provider: Shayne Moncada Consulting Providers: Kristopher Mckee; Ranjit Fuentes; Douglas Alegre; Yifan Katz; Jasvir Deutsch; Rocky Coronado; Yoseph Winn; Dallas Muller; Kristopher Ray; John Nayak; Lex Asif; Patricia Burden; Martínez Mclean; Jasper Hidalgo; Tylor Rose NP; Jenny Yancey PA; Moses Alexis Discharge Orders/Prescriptions Prescriptions: New warfarin [Jantoven] 2.5 mg Tablet 5 mg PO 1700 Qty: 60 0RF atenolol 50 mg Tablet 50 mg PO DAILY Qty: 30 0RF amoxicillin-pot clavulanate 875-125 mg Tablet 1 tab PO BIDCM Qty: 11 0RF Rx Instructions: Take with food furosemide [Lasix] 40 mg tablet 40 mg PO BID Qty: 60 0RF Continued levothyroxine 50 MCG tablet 50 mcg PO DAILY atorvastatin 40 MG tablet 40 mg PO QHS spironolactone 25 MG tablet 25 mg PO DAILY potassium chloride 10 mEq tablet extended release 20 meq PO DAILY Patient Comments: TAKE 2 TABLETS BY MOUTH ONCE DAILY WITH BREAKFAST aspirin 81 MG tablet,chewable 81 mg PO DAILY@0800 albuterol sulfate [Ventolin HFA] 90 mcg/actuation HFA aerosol inhaler 2 puff inhalation Q4H PRN PRN (Reason: Wheezing) Qty: 1 0RF fluticasone propion-salmeterol 250-50 mcg/dose blister with device 1 inh inhalation Q12H nitroglycerin 0.3 mg tablet, sublingual 0.3 mg sublingual Q5M PRN (Reason: chest pain) gabapentin 300 mg capsule 300 mg PO BID paroxetine HCl 40 mg tablet 40 mg PO DAILY Discontinued atenolol 50 mg tablet 25 mg PO DAILY warfarin 2.5 mg tablet 2.5 mg PO DAILY furosemide 20 mg tablet 20 mg PO DAILY Referrals / Follow Up: Shayne Moncada MD [Primary Care Provider] - In 1 Week (Make an appointment to see Dr. Moncada on 09/17/2024-have your INR rechecked) Jenny Yancey PA [Med Staff - [facility]] - Within 2 Weeks (Call for an appointment) Disposition Disposition (needs filled in before D/C Order can be placed): Home, Self Care
--- NOTE | 2024-09-12 15:03 | PCM.DC.SUM ---
Providers Date of Admission: 09/10/24 Date of Discharge: 09/12/24 Primary Care Physician: Dr. Shayne Moncada MD Consultations 09/10/24 02:01 Consult: Cardiology Routine Consulting Provider: [facility] Reason for Consult: AE CHF, PAF and Chest Pain. EMERGENT Consult: No MD Notified: Yes Date Notified: 09/10/24 Time Notified: 07:02 Method of Notification: Text Reason For Visit: PNA, AE CHF, RESPIRATORY INSUFFICIENCY, ANXIETY Diagnosis Discharge Diagnosis (1) Paroxysmal atrial fibrillation with RVR: Status: Acute Code(s): I48.0 - Paroxysmal atrial fibrillation (2) History of coronary artery stent placement: Status: Acute Code(s): Z95.5 - Presence of coronary angioplasty implant and graft (3) HTN (hypertension): Status: Chronic Code(s): I10 - Essential (primary) hypertension (4) Acute exacerbation of chronic heart failure: Status: Acute Code(s): I50.9 - Heart failure, unspecified (5) Hyperlipidemia: Status: Acute Code(s): E78.5 - Hyperlipidemia, unspecified Plan 1. Acute exacerbation of chronic congestive heart failure with normal ejection fraction-patient will remain on IV Lasix #2 chronic hypoxic respiratory failure-pulse ox will be monitored, oxygen will be adjusted as needed #3 aspiration pneumonia-patient is currently on Augmentin, speech therapy is seeing the patient, his diet has been changed to regular with nectar thickened liquids #4 paroxysmal atrial fibrillation with RVR-again patient's atenolol was increased by cardiology #5 coronary artery disease-patient will remain on his present medication #6 essential hypertension-patient will remain on his current medication #7 hyperlipidemia-patient is currently on a statin #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, he remains on 81 mg aspirin daily #9 hypothyroidism-patient is on Synthroid Medications at Discharge Home Medications levothyroxine 50 mcg tablet 50 mcg PO DAILY thyroid 07/25/19 atorvastatin 40 mg tablet 40 mg PO QHS cholesterol 07/28/19 spironolactone 25 mg tablet 25 mg PO DAILY diuretic 07/28/19 aspirin 81 mg chewable tablet 81 mg PO DAILY@0800 health 12/14/21 potassium chloride 10 mEq tablet,extended release 20 meq PO DAILY supplement 12/14/21 albuterol sulfate 90 mcg/actuation aerosol inhaler (Ventolin HFA) 2 puff inhalation Q4H PRN PRN Wheezing ##1 03/15/23 fluticasone 250 mcg-salmeterol 50 mcg/dose blistr powdr for inhalation 1 inh inhalation Q12H 09/10/24 gabapentin 300 mg capsule 300 mg PO BID 09/10/24 nitroglycerin 0.3 mg sublingual tablet 0.3 mg sublingual Q5M PRN chest pain 09/10/24 paroxetine HCl 40 mg tablet 40 mg PO DAILY 09/10/24 amoxicillin 875 mg-potassium clavulanate 125 mg tablet 1 tab PO BIDCM #11 tabs 09/12/24 atenolol 50 mg tablet 50 mg PO DAILY #30 tabs 09/12/24 furosemide 40 mg tablet (Lasix) 40 mg PO BID #60 tabs 09/12/24 warfarin 2.5 mg tablet (Jantoven) 5 mg (2 x 2.5 mg) PO 1700 #60 tabs 09/12/24 Hospital Course Operations None Procedures 2-D Echocardiogram Summary of Care Provided Minutes Spent on Discharge: 31 Hospital Course: This 83-year-old white male was directly admitted to PCU from [place] emergency room with complaints of shortness of breath, chest pain, anxiety, and generalized weakness. Workup at [place] ER included chest x-ray which revealed right hemidiaphragm elevation with a left perihilar opacity and elevated beta natruretic peptide of 2400 consistent with an acute exacerbation of CHF. EKG was obtained which showed atrial fibrillation-patient was known to have a history of paroxysmal A-fib and was on warfarin, white blood cell count was 10.2. Patient was given IV antibiotics for suspected pneumonia, IV Solu-Medrol, DuoNeb aerosol treatments and IV furosemide. Patient was seen in consultation by cardiology, it was recommended that his beta-karis be increased and cardiology felt he had evidence of congestive heart failure and recommended IV Lasix be continued. It was felt that the patient probably had aspiration pneumonia, he was seen by speech therapy who recommended nectar thickened liquids, I went over this with the patient's caregiver. On 09/12/2024, patient was seen and examined:alert, oriented x3 and no apparent distress Constitutional Narrative: Patient appears older than stated age General Appearance: cooperative, well kempt and well developed Orientation / Consciousness: awake, oriented to person, oriented to place and oriented to time HEENT normocephalic, head/scalp atraumatic and moist oral mucous membranes Eyes PERRL, EOMs intact bilaterally and conjunctivae normal Neck supple, no JVD, thyroid normal and no carotid bruits General: trachea midline Resp normal respiratory effort, no retractions and no use of accessory muscles Resp Narrative: Breath sounds are distant bilaterally Auscultation: Negative for rales, rhonchi or wheezes Cardio S1 normal heart sound, S2 normal heart sound, no murmurs, no rub and no gallops Cardio Narrative: Heart rate and rhythm is irregular GI normal to inspection, nondistended, normoactive bowel sounds, soft to palpation, non-tender and non-distended Extremity no clubbing, cyanosis or edema Skin no rashes or lesions noted General Skin Exam: no breakdown Neuro oriented x3, CN's II-XII intact bilaterally, moves all extremities, no focal motor deficits and no sensory deficits noted Sensorium / Orientation: awake and alert Speech: speech normal Psych affect normal Patient appears stable for discharge home on 09/12/2024. Weight / BMI Weight Weight: 91.6 kg Body Mass Index (BMI) 28.1 ABG / Lab / Microbiology Data 09/10/24 03:19 09/12/24 05:38 Laboratory: Laboratory Results - last 24 hr 09/12/24 05:38: Sodium 142, Potassium 4.0, Chloride 96 L, Carbon Dioxide 34.3 H, Anion Gap 11, BUN 44 H, Creatinine 0.92, Estim Creat Clear Calc 69.17, Est GFR (MDRD) Non-Af 82, BUN/Creatinine Ratio 48.1 H, Glucose 120 H, Calcium 8.9 09/12/24 13:19: PT 17.8 H, INR 1.4 Microbiology: Microbiology 09/10/24 04:15 Mucosa - Nose Respiratory Panel (PCR) - Final 09/10/24 03:41 Urine, Random Legionella Antigen - Final 09/10/24 03:41 Urine, Random Streptococcus pneumoniae Antigen (M - Final Radiography Diagnostic Testing: Radiology Impression Chest X-Ray 09/12/24 04:45 IMPRESSION: Bibasilar airspace disease, better seen on recent comparison CT [facility] Instructions Weight Bearing Status: Full weight bearing DC O2, CPAP, BIPAP Needs Home O2 Discharge instructions: Yes Type of respiratory needs?: Oxygen Oxygen frequency: Continuous Continuous oxygen liters per minute: 3 L DC home with Oxygen: Yes Home O2 MD Review: I have reviewed the oxygen testing, and the patient qualifies for home oxygen equipment and portability. The patient is mobile in the home and the community. Meaningful Use Info Meaningful Use Meaningful Use Diagnoses (Choose all that apply): None applicable Discharge Plan Admission Admit Date/Time: 09/10/24 01:26 Primary Reason for Your Visit: Congestive heart failure, aspiration pneumonia, atrial fibrillation Attending Provider: Aayush Sibley Primary Care Provider: Shayne Moncada Consulting Providers: Kristopher Mckee; Ranjit Fuentes; Douglas Alegre; Yifan Katz; Jasvir Deutsch; Rocky Coronado; Yoseph Winn; Dallas Muller; Kristopher Ray; John Nayak; Lex Asif; Patricia Burden; Martínez Mclean; Omar Hidalgo; Tylor Rose CARE REP; Jenny Yancey PA; Moses Alexis Discharge Orders/Prescriptions Prescriptions: New warfarin [Jantoven] 2.5 mg Tablet 5 mg PO 1700 Qty: 60 0RF atenolol 50 mg Tablet 50 mg PO DAILY Qty: 30 0RF amoxicillin-pot clavulanate 875-125 mg Tablet 1 tab PO BIDCM Qty: 11 0RF Rx Instructions: Take with food furosemide [Lasix] 40 mg tablet 40 mg PO BID Qty: 60 0RF Continued levothyroxine 50 MCG tablet 50 mcg PO DAILY atorvastatin 40 MG tablet 40 mg PO QHS spironolactone 25 MG tablet 25 mg PO DAILY potassium chloride 10 mEq tablet extended release 20 meq PO DAILY Patient Comments: TAKE 2 TABLETS BY MOUTH ONCE DAILY WITH BREAKFAST aspirin 81 MG tablet,chewable 81 mg PO DAILY@0800 albuterol sulfate [Ventolin HFA] 90 mcg/actuation HFA aerosol inhaler 2 puff inhalation Q4H PRN PRN (Reason: Wheezing) Qty: 1 0RF fluticasone propion-salmeterol 250-50 mcg/dose blister with device 1 inh inhalation Q12H nitroglycerin 0.3 mg tablet, sublingual 0.3 mg sublingual Q5M PRN (Reason: chest pain) gabapentin 300 mg capsule 300 mg PO BID paroxetine HCl 40 mg tablet 40 mg PO DAILY Discontinued atenolol 50 mg tablet 25 mg PO DAILY warfarin 2.5 mg tablet 2.5 mg PO DAILY furosemide 20 mg tablet 20 mg PO DAILY Referrals / Follow Up: Shayne Moncada MD [Primary Care Provider] - In 1 Week (Make an appointment to see Dr. Moncada on 09/17/2024-have your INR rechecked) Jenny Yancey PA [Med Staff - [facility]] - Within 2 Weeks (Call for an appointment) Disposition Disposition (needs filled in before D/C Order can be placed): Home, Self Care Charges/Coding Visit Charges Inpatient E&M: 01317 Disch Hosp >30min
--- NOTE | 2024-09-12 15:20 | CASEMGMT ---
Patient has ordere for discharge. Patient will need outpatient ST at discharge. FREIDA CAIN in to speak to patient about discharge planning. Patient request that this RN CM call Hui, caregiver, to discuss needs at discharge. RN CM attempted to call Hui, call goes straight to voicemail, message left with return contact info. RN CM attempted to call sonGigi, no answer, message left with return contact information. RN ANT updated patient, patient asked RN ANT to call CAROL ANN Goins, from his phone. RN ANT called Marycarmen Conroy at patient's bedside. Patient gave permission to update Marycarmen Conroy regarding discharge plan. RN CM udpate Marycarmen Conroy that Hui and Gigi's phones are going to voicemail. FREIDA CAIN discussed outpatient ST at discharge, Marycarmen Conroy gave permission to send referral to [facility] and patient agreeable as well. Marycarmen Conroy requested to have [facility] call Hui to schedule appointment. FREIDA CAIN udpated Marycarmen Conroy that patient is ready for discharge. Marycarmen Conroy states she will update Hui and Gigi. Marycarmen Conroy had no further questions or concerns. FREIDA CAIN received script for outpatient ST therapy and sent to [facility], copy provided in discharge packet with [facility] information. RN ANT updated discharge plan.
== END 2024-09-12 17:45 | disposition home or self-care (01) | DRG 177 ==
PROVIDERS: Admitting Provider Internal Medicine; PCP Family Medicine; Visit Provider Internal Medicine
DX: J69.0 Pneumonitis due to inhalation of food and vomit (principal); I50.33 Acute on chronic diastolic (congestive) heart failure; J44.1 Chronic obstructive pulmonary disease with (acute) exacerbation; I69.351 Hemiplegia and hemiparesis following cerebral infarction affecting right dominant side; J96.11 Chronic respiratory failure with hypoxia; J38.01 Paralysis of vocal cords and larynx, unilateral; J98.6 Disorders of diaphragm; B35.6 Tinea cruris; G47.31 Primary central sleep apnea; I48.0 Paroxysmal atrial fibrillation; I11.0 Hypertensive heart disease with heart failure; E03.9 Hypothyroidism, unspecified; E78.5 Hyperlipidemia, unspecified; I25.10 Atherosclerotic heart disease of native coronary artery without angina pectoris; I25.2 Old myocardial infarction; G60.9 Hereditary and idiopathic neuropathy, unspecified; F41.8 Other specified anxiety disorders; M16.11 Unilateral primary osteoarthritis, right hip; K21.9 Gastro-esophageal reflux disease without esophagitis; Z79.01 Long term (current) use of anticoagulants; F41.0 Panic disorder [episodic paroxysmal anxiety]; E66.3 Overweight; G89.29 Other chronic pain; R13.12 Dysphagia, oropharyngeal phase; R53.1 Weakness; Z68.29 Body mass index [BMI] 29.0-29.9, adult; Z95.1 Presence of aortocoronary bypass graft; Z79.82 Long term (current) use of aspirin; Z79.02 Long term (current) use of antithrombotics/antiplatelets; Z85.46 Personal history of malignant neoplasm of prostate; Z92.3 Personal history of irradiation; Z79.890 Hormone replacement therapy; Z79.899 Other long term (current) drug therapy; Z79.51 Long term (current) use of inhaled steroids; Z87.891 Personal history of nicotine dependence; Z87.81 Personal history of (healed) traumatic fracture; Z96.641 Presence of right artificial hip joint
CPT/HCPCS: 36415; 71046; 71250; 74230; 80048; 80053; 80061; 81001; 82607; 82746; 82803; 83036; 83735; 83880; 84100; 84443; 84484; 85025; 85379; 85610; 87449; 87633; 92610; 92611; 93005; 93306; 94640; 94668; 97162; 97166; 97530; 97535; 99252; Q9957; A4216; C8929; G0463; J1938

== ENCOUNTER 2024-09-16 18:20 | Observation (INO) | payer MEDICARE, SELFPAY ==
[2024-09-16] VITALS (8 sets, daily range): BP systolic 122–149; BP diastolic 70–87; PULSE 88–100; RESP 14–22; TEMP 36.5–37.1; O2SAT 94–98; BMI 28.2
--- NOTE | 2024-09-16 18:50 | CT_ITS ---
EXAM: BRAIN/HEAD WITHOUT CONTRAST CLINICAL HISTORY: 83 y/o M with CONFUSION. COMPARISON: MRI head 07/26/2019. TECHNIQUE: Routine CT imaging of the head without IV contrast. Additional multiplanar reformats were obtained. Dose reduction techniques were used including intermediate exposure control (AEC),iterative reconstruction technique, and/or mA and/or KV dose adjustments based on patient's size. FINDINGS: The ventricles, sulci and cisterns are mildly prominent, suggestive of brain parenchymal volume loss. There is no evidence of acute intracranial hemorrhage or herniation. There is no midline shift, mass effect, or extra-axial collection. Chronic lacunar type infarct within the right centrum semiovale. Moderate patchy supratentorial white matter hypodensities, compatible with patient age. The pedraza and white matter interfaces are otherwise maintained. Prior ocular lens replacements. The visualized paranasal sinuses and mastoids are unremarkable. No acute calvarial fracture or scalp hematoma. CT/Brain/Head without Contrast IMPRESSION: No acute intracranial finding. Reading Location: [id number]
--- NOTE | 2024-09-16 18:52 | EDS_ITS ---
HPI History of Present Illness Chief Complaint: General Illness Detail of Chief Complaint: Confusion Informant: patient Narrative Narrative: Patient presents to the emergency department complaint of some confusion that started last evening. Patient apparently at times will kind of twitch in his sleep and then when he woke up he started talking to his son and told him to give medications to his other son. Really was not making much sense. He was admitted recently to the hospital for pneumonia. Currently on an antibiotic. He denies headache. Denies chest pain. Denies abdominal pain. Denies urinary symptoms. He has not had a fever. He does wear home O2 for history of COPD. Patient really does not know why he is here and states that other than feeling anxious he really has no complaints. 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) Central sleep apnea Stage 2 moderate COPD by GOLD classification HTN (hypertension) Hoarseness left vocal cord paralysis Home Medications ?Medication ?Instructions ?Recorded ?Last Taken ?Type levothyroxine 50 mcg tablet 50 mcg PO DAILY thyroid 12/14/21 History atorvastatin 40 mg tablet 40 mg PO QHS cholesterol 12/14/21 History spironolactone 25 mg tablet 25 mg PO DAILY diuretic 12/14/21 History aspirin 81 mg chewable tablet 81 mg PO DAILY@0800 heal th 12/14/21 12/14/21 History potassium chloride 10 mEq 20 meq PO DAILY supplement 1 02/13/21 12/14/21 History tablet,extended release albuterol sulfate 90 mcg/actuation 2 puff inhalation Q 4H PRN PRN 03/15/23 Unknown Rx aerosol inhaler (Ventolin HFA) Wheezing ##1 fluticasone 250 mcg-salmeterol 50 1 inh inhalation Q12 H 09/10/24 Unknown History mcg/dose blistr powdr for inhalation gabapentin 300 mg capsule 300 mg PO BID 09/10/24 Unkno wn History nitroglycerin 0.3 mg sublingual 0.3 mg sublingual Q5M PRN chest 09/10/24 Unknown History tablet pain paroxetine HCl 40 mg tablet 40 mg PO DAILY 09/10/24 Un known History amoxicillin 875 mg-potassium 1 tab PO BIDCM #11 tabs 0 8/06/25 Unknown Rx clavulanate 125 mg tablet atenolol 50 mg tablet 50 mg PO DAILY #30 tabs 0808/01 Unknown Rx furosemide 40 mg tablet (Lasix) 40 mg PO BID #60 tabs 09/12/24 Unknown Rx warfarin 2.5 mg tablet (Jantoven) 5 mg (2 x 2.5 mg) PO 1700 #60 tabs 09/12/24 Unknown Rx Allergy/AdvReac Type Severity Reaction Status Date / Time oxycodone (From Percodan) Allergy Other Verified 09/16/24 18:21 Surgical History History of coronary artery stent placement (12/16/21) Cataract extraction status History of hip replacement History of open heart surgery Social History Smoking Status: Former smoker quit date: 02/08/92 pack-years: 37 Tobacco: How many years used: 20 alcohol intake: never substance use type: does not use ROS ROS ED Constitutional Constitutional ED: Reports systems reviewed and no addt'l complaints, except as documented; Denies body ache(s), change in weight or chills Eyes Eyes: Denies acute decrease in peripheral vision, change in vision, double vision or loss of vision ENT ENT ED: Reports none; Denies ear pain, lip swelling, loss taste/smell, neck pain, otalgia or sore throat Cardiovascular Cardiovascular: Reports none; Denies abdominal pain, chest pain, chest pain with activity, leg edema, lightheadedness, palpitations, racing heartbeat, rapid heart rate or syncope Respiratory/Chest Respiratory/Chest: Reports none; Denies change in mental status, dry cough, dyspnea, hemoptysis, shortness of breath at rest or shortness of breath with exertion Gastrointestinal Gastrointestinal: Reports none; Denies abdominal pain, change in stool character, diarrhea, hematemesis, hematochezia, melena, rectal bleeding or vomiting Genitourinary Genitourinary ED: Reports none; Denies abdominal discomfort, anuria, dysuria, genital pain or polyuria Musculoskeletal Musculoskeletal: Reports none; Denies arthralgias, back pain, difficulty walking, extremity pain, muscle weakness or myalgias Integumentary Reports none; Denies abscess or rash Neurologic Neurologic: Reports none and confusion; Denies abnormal gait, focal weakness, frequent falls, headache(s), loss of vision, numbness, paresthesias, radicular pain, vertigo or weakness Psychiatric Psychiatric: Reports systems reviewed and no addt'l complaints, except as documented and none; Denies behavioral changes, confusion, difficulty concentrating, hallucinations, suicidal ideation, tactile hallucinations or visual hallucinations Endocrine Endocrinology: Denies none, cold intolerance, excessive sweating, fatigue or heat intolerance Hematologic/Lymphatic Hematologic/Lymphatic: Reports none; Denies anemia, easy bleeding or easy bruising Allergic/Immunologic Allergic/Immunologic ED: Denies as per HPI, none, lip swelling, mouth swelling, throat swelling, tongue swelling or hives EXAM Physical Exam Const Vital Signs: 09/16/24 18:21 09/16/24 18:27 09/16/24 18:31 Temperature 97.7 F L 98.2 F Temperature Source Temporal Oral Pulse Rate 95 100 Respiratory Rate 14 22 H Respiratory Pattern Normal Blood Pressure 122/72 H 133/74 H Blood Pressure Mean 88 93 Pulse Ox 97 95 Oxygen Delivery Method Nasal Cannula Nasal Cannula Oxygen Flow Rate (L/min) 4 2 09/16/24 19:31 09/16/24 20:00 09/16/24 20:50 Temperature 98.3 F 98.7 F 98.7 F Temperature Source Oral Oral Pulse Rate 90 90 90 Respiratory Rate 18 18 18 Respiratory Pattern Blood Pressure 140/87 H 146/70 H 146/70 H Blood Pressure Mean 104 95 95 Pulse Ox 98 98 98 Oxygen Delivery Method Room Air Room Air Oxygen Flow Rate (L/min) 09/16/24 21:00 Temperature 98.3 F Temperature Source Oral Pulse Rate 100 Respiratory Rate 20 H Respiratory Pattern Blood Pressure 149/72 H Blood Pressure Mean 97 Pulse Ox 98 Oxygen Delivery Method Room Air Oxygen Flow Rate (L/min) Positive well nourished and well developed General Appearance ED: well developed and NAD HEENT Reports TM's clear and moist mucous membranes normocephalic and atraumatic; Negative for trauma or tenderness Tympanic Membrane ED: Yes TM's clear Eyes PERRL and EOMs intact bilaterally General Eye ED: Negative for pale conjunctiva or scleral icterus Neck no lymphadenopathy, supple and no JVD General: Negative for tenderness Chest Wall inspection of chest normal and palpation of chest normal Chest: Negative for tenderness Resp normal respiratory effort and clear to auscultation bilaterally Effort and Inspection: Negative for respiratory distress or pain with movement Auscultation: Negative for rhonchi, wheezes or diminished lung sounds Cardio regular rate, regular rhythm, S1 normal heart sound, S2 normal heart sound and no murmurs Peripheral Pulses: pulses 2+ throughout GI normal to inspection, nondistended, normoactive bowel sounds, soft to palpation, non-tender, non-distended and no masses Back/Spine no CVA tenderness and no thoracic nor lumbar tenderness Extremity normal to inspection General Extremety ED: Negative for edema General Extremity: Negative for edema Neuro oriented x3, CN's II-XII intact bilaterally, no sensory deficits noted and gait normal Sensorium / Orientation: awake, alert, oriented to person, oriented to place and oriented to time Motor Exam: strength 5/5 throughout and strength abnormal Psych mental status grossly normal Skin no rashes or lesions noted and no wounds MDM MDM MDM Narrative Medical decision making narrative: Patient presents from home with concern for confusion. Patient apparently will intermittently twitch. He has been talking in his sleep. At times not making sense. Family concerned about possibility of stroke. He is had symptoms for more than 24 hours. Patient recently discharged home after being admitted for CHF and pneumonia. Clinically he seems appropriate and answering questions appropriately. IV line established. CBC with differential obtained showed white count of 18.0 with hemoglobin 13.9 platelet count of 201. Chemistries were unremarkable. BUN 24 creatinine 0.81. Glucose 112. Urinalysis without signs of infection. 1 view chest x-ray obtained showed an elevated right hemidiaphragm and no obvious infiltrate on my evaluation. CT scan of the brain without contrast was unremarkable. Discussed results with patient and family. He is complaining of feeling anxious so I gave him a milligram of Ativan. He is feeling markedly improved with the Ativan but now more somnolent. Etiology of symptoms unclear as far as the confusion and the intermittent twitching that family describes. Patient continues with leukocytosis. Will discuss with hospitalist to evaluate for admission. Lab Data Attestation: I reviewed the patient's lab results. Labs: Laboratory Results - last 24 hr 09/16/24 09/16/24 18:25 19:38 WBC 18.0 H RBC 4.62 Hgb 13.9 Hct 44.0 MCV 95.2 H MCH 30.1 MCHC 31.6 L RDW Std Deviation 46.3 H RDW Coeff of Erica 13.2 Plt Count 201 MPV 9.1 Immature Gran % (Auto) 1.800 H Neut % (Auto) 85.4 H Lymph % (Auto) 4.6 L [place] % (Auto) 4.1 Eos % (Auto) 3.7 Baso % (Auto) 0.4 Absolute Neuts (auto) 15.3 H Absolute Lymphs (auto) 0.83 Nucleated RBC % 0 PT 32.4 H INR 3.1 Sodium 138 Potassium 4.6 Chloride 93 L Carbon Dioxide 35.6 H Anion Gap 9 BUN 24 H Creatinine 0.81 Estim Creat Clear Calc 80.91 Est GFR (MDRD) Non-Af 87 BUN/Creatinine Ratio 29.2 H Glucose 112 H Calcium 9.3 Urine Color Yellow Urine Clarity Clear Urine pH 7.0 Ur Specific [place] 1.010 Urine Protein 30 H Urine Glucose (UA) Normal Urine Ketones Negative Urine Occult Blood 250 H Urine Nitrite Negative Urine Bilirubin Negative Urine Urobilinogen 4 H Ur Leukocyte Esterase 25 H Urine RBC 5-10 SEEN Urine WBC 0-5 SEEN Ur Squamous Epith Cells 0-5 SEEN Urine Bacteria 1+ Hyaline Casts 10-25 SEEN Urine Mucus 0 SEEN Radiography Diagnostic Testing: Clinical Impression(s) from Imaging Studies Brain CT 09/16/24 18:50 IMPRESSION: No acute intracranial finding. Reading Location: [facility] 1 view chest x-ray obtained interpreted by myself as elevated right hemidiaphragm with without evidence of acute infiltrate or pneumothorax or acute disease process. EKG Initial EKG: Attestation: I personally reviewed and interpreted this EKG as follows: Comments: Atrial fibrillation with ventricular rate of 101 bpm with no acute ST segment changes Discharge Plan Triage Chief Complaint: General Illness ED Provider: Chris Cole Dx/Rx/DC Orders Clinical Impression: Altered mental status, Anxiety, Leukocytosis Prescriptions: No Action levothyroxine 50 MCG tablet 50 mcg PO DAILY atorvastatin 40 MG tablet 40 mg PO QHS spironolactone 25 MG tablet 25 mg PO DAILY potassium chloride 10 mEq tablet extended release 20 meq PO DAILY Patient Comments: TAKE 2 TABLETS BY MOUTH ONCE DAILY WITH BREAKFAST aspirin 81 MG tablet,chewable 81 mg PO DAILY@0800 albuterol sulfate [Ventolin HFA] 90 mcg/actuation HFA aerosol inhaler 2 puff inhalation Q4H PRN PRN (Reason: Wheezing) Qty: 1 0RF fluticasone propion-salmeterol 250-50 mcg/dose blister with device 1 inh inhalation Q12H nitroglycerin 0.3 mg tablet, sublingual 0.3 mg sublingual Q5M PRN (Reason: chest pain) gabapentin 300 mg capsule 300 mg PO BID paroxetine HCl 40 mg tablet 40 mg PO DAILY warfarin [Jantoven] 2.5 mg Tablet 5 mg PO 1700 Qty: 60 0RF atenolol 50 mg Tablet 50 mg PO DAILY Qty: 30 0RF amoxicillin-pot clavulanate 875-125 mg Tablet 1 tab PO BIDCM Qty: 11 0RF Rx Instructions: Take with food furosemide [Lasix] 40 mg tablet 40 mg PO BID Qty: 60 0RF Primary Care Provider: Shayne Moncada Referrals: Shayne Moncada MD [Primary Care Provider] - Print Language: [place]
[2024-09-16 19:01] LABS: Hematocrit 44.0 % (40-54); Hemoglobin 13.9 g/dL (13.0-16.5); Immature Granulocytes Count 0.330 X10^3/uL (0.0-0.0); Mean Corp Hgb Conc 31.6 g/dL (32-36); Mean Corpuscular Volume 95.2 fL (80-94); Mean Platelet Vol. 9.1 fl (6.2-12.0); NRBC Flagged by Analyzer 0 % (0-5); Platelet Count 201 K/mm3 (150-450); RBC Distribution Width CV 13.2 % (11.6-14.6); RBC Distribution Width SD 46.3 fl (35.1-43.9); Red Blood Count 4.62 M/mm3 (4.6-6.2); White Blood Count 18.0 K/mm3 (4.4-11.0)
[2024-09-16 19:11] LABS: Prothrombin Time (Protime)PT. 32.4 SECONDS (11.7-14.9)
--- OUTSIDE RECORDS SUMMARY | 2024-09-16 19:13 | XMS RPT_ITS | CCD ---
Author Organization [facility] Care Team Providers Care Core Man Name Role Phone Paddy Zaidi MD Primary Care Provider Dr. Shayne Zaidi Primary Care Provider Dr. William Paiz Emergency Provider Dr. Lamberto Dinero Admit Provider Dr. Lamberto Dinero Attending Provider Dr. Lamberto Dinero Other Provider Paddy Zaidi MD Primary Care Provider [phone] Dr. Dallas Muller Attending Provider Dr. Dallas Muller Other Provider Dr. Florence Gregg Other Provider Dr. Florence Gregg Attending Provider Paddy Zaidi MD Primary Care Provider Dr. Lito Pérez Attending Provider Dr. Lamberto Dinero Referring Provider Dr. Shayne Zaidi Referring Provider Daksha MAINTENANCE SUPERVISOR MECHANICAL, VIDALC Shnaon Attending Provider [phone] Paddy Zaidi MD Primary Care Provider Tanya CASKET LINER.AUTO CAMP ATTENDANT, Hever Unavailable FLAVIA SMITH Attending Unavailable RAINA HUYNH Referring Unavailable PADDY ZAIDI Primary Care Unavailable RAINA HUYNH Referring Unavailable PADDY ZAIDI Primary Care Unavailable FLAVIA SMITH Attending Unavailable KONTAK, PADDY R Primary Care Unavailable TANYA, HEVER Referring Unavailable KONTAK, PADDY R Primary Care Unavailable KONTAK, PADDY R Attending Unavailable KONTAK, PADDY R Primary Care Unavailable TANYA, HEVER Attending Unavailable SELF Referring Unavailable KONTAK, PADDY R Primary Care Unavailable KONTAK, PADDY R Referring Unavailable KONTAK, PADDY R Primary Care Unavailable TANYA, HEVER Referring Unavailable KONTAK, PADDY R Primary Care Unavailable TANYA, HEVER Referring Unavailable KONTAK, PADDY R Primary Care Unavailable BROWN, RAINA ALEXANDRA Attending Unavailable TANYA, HEVER Referring Unavailable KONTAK, PADDY R Primary Care Unavailable BROWN, RAINA NASRIN Referring Unavailable KONTAK, PADDY R Primary Care Unavailable BROWN, RAINA NASRIN Referring Unavailable KONTAK, PADDY R Primary Care Unavailable Kontak , Dr. Bella Primary Care Provider Valencia DO, Dr. Summers Admit Provider Unavail able Valencia DO, Dr. Summers Other Provider Unavail able Dr. Aayush Sibley DO Attending Provider Alfredo GRAHAM, Dr. Church Other Provider Unavailable Sis GRAHAM, Dr. Cole Other Provider Unavailable Gianna GRAHAM, Dr. Saha Other Provider Get GRAHAM, Dr. Tay Other Provider Dr. Rocky Coronado MD Other Provider Pa GRAHAM, Dr. Hameed Other Provider Unavailable Renzo GRAHAM, Dr. Haynes Other Provider Dr. Kristopher Ray DO Other Provider Nael GRAHAM, Dr. Lopez Other Provider Dr. Rosalino Asif MD Other Provider Jenise GRAHAM, Dr. Gomez Other Provider Caridad GRAHAM, Dr. Soliz Other Provider Gwen GRAHAM, Dr. Nelson Other Provider Rose MAINTENANCE SUPERVISOR MECHANICAL-C, Arturo Tobar Other Provider Jenny Rachel Other Provider [phone] Moses López Other Provider [phone] Aayush Sibley DO Other Provider [phone] Renzo GRAHAM, Dr. Haynes Attending Provider [phone] Dallas Muller Attending Unavailable Coral Shayne Primary Care Unavailable Kristopher Valencia Admitting Unavailable Kristopher Valencia Consulting Unavailable Aayush Sibley Consulting Unavailable Alpa Jeffries Attending Unavailable Coral Shayne Primary Care Unavailable Aayush Sibley Attending Unavailable Aayush Sibley Referring Unavailable Coral Shayne Primary Care Unavailable Coral Shayne Primary Care Unavailable Aayush Sibley Attending Unavailable Kristopher Valencia Admitting Unavailable Kristopher Valencia Consulting Unavailable Amro, Ahmed Consulting Unavailable Jabri, Ahmad Consulting Unavailable Mostafa, Yifan Consulting Unavailable Get, Jasvir Consulting Unavailable Cliff, Rocky Consulting Unavailable Pa, Yoseph Consulting Unavailable Dillan Mullerril Consulting Unavailable Kristopher Ray Consulting Unavailable Belal, Farouk Consulting Unavailable Rosalino Asif Consulting Unavailable Nagajothi, Nagapradee Consulting Unavailabl e Satti, Martínez Consulting Unavailable Neshkoro, Omar Consulting Unavailable Rose HALL, Arturo Tobar Consulting Unavailable Jenny Rachel Consulting Unavail able Moses Alexis Consulting Unavailable Amro, Ahmed Consulting Unavailable Jabri, Ahmad Consulting Unavailable Mostafa, Yifan Consulting Unavailable Get, Jasvir Consulting Unavailable Cliff, Rocky Consulting Unavailable Pa, Yoseph Consulting Unavailable Renzo, [place] Consulting Unavailable Kristopher Ray Consulting Unavailable Belal, Farouk Consulting Unavailable Rosalino Asif Consulting Unavailable Nagajothi, Nagapradee Consulting Unavailabl e Satti, Martínez Consulting Unavailable Neshkoro, Omar Consulting Unavailable Rose HALL, Arturo Tobar Consulting Unavailable Jenny Rachel Consulting Unavail able Moses Alexis Consulting Unavailable Aayush Sibley Attending Unavailable Kristopher Valencia Attending Unavailable ARTURO NG Attending Unavailable PADDY ZAIDI Primary Care Unavailable Allergies Allergy Classification Reported Allergen(s) Allergy Type Date of Onset Reaction(s) Facility (20 sources) Aspirin / oxyCODONE; Translations: [OXYCODONE-ASPIR IN] Drug Allergy 5 Mental Status Change [facility] Work Phone: (20 sources) oxyCODONE; Translations: [OXYCODONE] Drug Allergy 9 Other: See Comments [facility] (20 sources) Aspirin; Translations: [ASPIRIN] Drug Allergy 9 Unknown [facility] (1 source) oxyCODONE Drug Allergy 4 [facility] Repository Medications Current Medications Medication Drug Class(es) Dates Sig (Normalized) Sig (Original) [id number] 200 actuat albuterol 0.09 mg/actuat metered dose inhaler (20 sources) beta2-Adrenergic Agonist Start: 03-05-2024 End: 03-05-2024 take 2 puff(s) by inhalation every four hours as needed for wheezing albuterol HFA (PROVENTIL HFA, VENTOLIN HFA) 90 mcg/actuation inhaler Inhale 2 Puffs as instructed every 4 hours as needed for wheezing/shortnes s of breath. 1 Each 5 03/05/2024 Active Start: 03-15-2023 Albuterol Sulf ate (Ventolin Hfa) 90 mcg/actuation HFA aerosol inhaler Active 2 NMA INHALATION EVERY 4 HOURS NEEDED as needed for Wheezing 1 March 15, 2023 1:00am Start: 03-15-2023 take 1 puff(s) by in halation every four hours as needed Albuterol Sulfate (Ventolin Hfa) 90 mcg/actuation HFA aerosol inhaler Active 2 PUFF INHALATION EVERY 4 HOURS NEEDED March 15, 2023 12:00am Start: 06-09-2017 End: 01-12-2018 Albuterol Sulfate (Ventolin Hfa) 90 mcg/actuation HFA aerosol inhaler Discontinued 2 NMA INHALATION EVERY 6 HOURS as needed for Wheezing June 09, 2017 12:00am January 12, 2018 3:32pm Start: 06-09-2017 End: 01-12-2018 take 1 puff(s) by inhalation every six hours Albuterol Sulfate (Ventolin Hfa) 90 mcg/actuation HFA aerosol inhaler Discontinued 2 PUFF INHALATION EVERY 6 HOURS June 08, 2017 11:00pm January 12, 2018 2:32pm amoxicillin 875 mg / clavulanate 125 mg oral tablet (2 sources) Penicillin-class Antibacterial Start: 09-12-2024 Amoxicillin-Pot Clavulanate 875-125 mg Tablet Active 1 {tbl} PO TWICE DAILY WITH MEALS September 12, 2024 12:00am Take with food Start: 05-25-2022 End: 05-30-2022 take 1 tablet by mouth twice daily amoxicillin-clavulanic acid (AUGMENTIN) 875-125 mg per tablet Take 1 tablet by mouth twice daily for 5 days. 10 tablet 0 05/25/2022 05/30/2022 Active Comment on above: Take 1 tablet by dimitri th twice daily for 5 days. atenolol 50 mg oral tablet (20 sources) beta-Adrenergic Karis Start: 09-12-2024 take 1 tablet by mouth once daily Atenolol 50 mg Tablet Active 50 mg PO DAILY 30 September 12, 2024 12:00am Start: 02-22-2022 End: 06-18-2024 take 0.5 tablet by mouth once daily atenolol (TENORMIN) 50 mg tablet Indications: Essential hypertension Take 0.5 tablets by mouth once daily. 90 tablet 3 06/19/2024 Active Start: 12-23-2021 take 0.5 tablet by m outh once daily atenolol (TENORMIN) 50 mg tablet Indications: Essential hypertension Take 0.5 tablets by mouth once daily. 90 tablet 0 12/23/2021 Active Start: 12-14-2021 End: 09-12-2024 Atenolol 50 mg tablet Discon tinued 25 mg PO DAILY December 14, 2021 1:00am September 12, 2024 2:57pm bp Start: 12-03-2021 End: 12-23-2021 take 50 mg by mouth once daily Atenolol Active 50 MG P O DAILY December 14, 2021 12:00am Start: 02-23-2021 End: 09-10-2021 take 1 tablet by mouth once daily atenolol (TENORMIN) 50 mg tablet Indications: Essential hypertension Take 1 tablet by mouth once daily 90 tablet 0 09/10/2021 Active Start: 07-25-2018 End: 07-28-2019 take 1 tablet by mouth once daily Atenolol 50 MG tablet Discontinued 50 mg PO DAILY 0 July 25, 2018 12:00am July 28, 2019 11:10am Comment on above: Take 1 tablet by dimitri once daily Take 1 tablet by dimitri once daily. Take 0.5 tablets by mouth once daily. atorvastatin 40 mg oral tablet (20 sources) HMG-CoA Reductase Inhibitor Start: End: take 1 tablet by mouth once daily atorvastatin (LIPITOR) 40 mg tablet Indications: Mixed hyperlipidemia Take 1 tablet by mouth once daily. 90 tablet 3 06/19/2024 06/19/2025 Active Start: 07-25-2018 End: 06-06-2024 take 1 tablet by mouth at bedtime Atorvastatin 40 MG tablet Discontinued 40 mg PO AT BEDTIME 0 July 28, 2019 12:00am July 28, 2019 8:16pm Comment on above: Take 1 tablet by dimitri once daily. Fluticasone Propion-Salmeterol (18 sources) Corticosteroid, beta2-Adrenergic Agonist Start: 09-10-2024 Fluticasone Propion-Salmeterol 250-50 mcg/dose blister with device Active 1 NMA INHALATION Q12H September 10, 2024 12:00am Start: 03-27-2024 take 1 puff(s) by mo [facility] twice daily fluticasone-salmeterol (ADVAIR DISKUS) 250-50 mcg/dose inhaler Inhale 1 Puff as instructed two times a day. RINSE AND GARGLE MOUTH WITH WATER AFTER EACH USE. 60 Each 5 03/27/2024 Active furosemide 40 mg oral tablet (20 sources) Loop Diuretic Start: 09-12-2024 take 1 tablet by mouth twice daily Furosemide (Lasix) 40 mg tablet Active 40 mg PO TWICE A DAY 60 0 September 12, 2024 12:00am Start: 06-21-2024 End: 09-12-2024 take 1 tablet by mouth once daily Furosemide 20 mg tablet Discontinued 20 mg PO DAILY September 10, 2024 12:00am September 12, 2024 2:57pm Start: 06-07-2023 End: 06-19-2024 take 1 tablet by mouth once daily furosemide (LASIX) 20 mg tablet Take 1 tablet by mouth once daily 30 tablet 06/19/2024 Active gabapentin 300 mg oral capsule (20 sources) Anti-epileptic Agent Start: 07-13-2024 End: 10-11-2024 take 1 capsule by mouth twice daily Gabapentin 300 mg capsule Active 300 mg PO TWICE A DAY September 10, 2024 12:00am Start: 12-14-2021 End: 10-10-2024 take 2 capsules by mouth [...] twice daily for 180 days. For neuropathy levothyroxine sodium 0.05 mg oral tablet (20 sources) l-Thyroxine Start: 07-25-19 End: 08-15-19 take 1 tablet by mouth once daily levothyroxine (SYNTHROID) 50 mcg tablet Indications: Hypothyroidism, unspecified type Take 1 tablet by mouth once daily. 90 tablet 3 08/14/2024 08/14/2025 Active Comment on above: TAKE 1 TABLET BY DIMITRI TH ONCE DAILY ON AN EMPTY STOMACH Take 1 tablet by dimitri th once daily. LORazepam 0.5 mg oral tablet (8 sources) Benzodiazepine Start: 07-14-19 25 End: 07-24-19 25 take 1 tablet by mouth three times daily as needed LORazepam (ATIVAN) 0.5 mg Indications: Anxiety attack Take 1 tablet by mouth three times a day as needed for up to 10 days. 10 tablet 07/13/2024 07/23/2024 Active Start: 07-28-2019 End: 08-14-2019 take 1 tablet by mouth three times daily as needed for anxiety Lorazepam 0.5 MG tablet Discontinued 0.5 mg PO 3 TIMES DAILY NEEDED as needed for Anxiety 7 July 28, 2019 12:00am August 14, 2019 8:16am nitroglycerin 0.3 mg sublingual tablet (20 sources) Nitrate Vasodilator Start: 09-10-2024 Nitroglyce rin 0.3 mg tablet, sublingual Active 0.3 mg SL Q5M as needed for chest pain September 10, 2024 12:00am Start: 08-23-2019 End: 07-13-2024 nitroglycerin sublingual (NI TROQUICK) 0.3 mg SL tablet Dissolve 1 tablet under the tongue every 5 minutes as needed. 25 tablet 07/13/2024 Active Start: 06-09-2017 End: 07-28-2019 Nitroglycerin 0.3 mg tablet, sublingual Discontinued 0.3 mg SL every 5 to 15 minutes as needed for CHEST PAIN June 09, 2017 12:00am July 28, 2019 11:06am Comment on above: Dissolve 1 tablet un deyanira the tongue every 5 minutes as needed. PARoxetine hydrochloride 40 mg oral tablet (20 sources) Serotonin Reuptake Inhibitor Start: End: take 1 tablet by mouth once daily Paroxetine Hcl 40 mg tablet Active 40 mg PO DAILY September 10, 2024 12:00am Start: 01-02-2024 End: 02-14-2024 take 1 tablet [...] 12/30/2023 Discontinued Start: 07-25-2019 End: 12-28-2021 take 1 tablet by mouth once daily Paroxetine Hcl 20 MG tablet Discontinued 20 mg PO DAILY July 25, 2019 12:00am December 28, 2021 10:24am mood potassium chloride 10 meq extended release oral tablet (20 sources) Start: 12-14-2021 take 20 mEq by mouth once daily Potassium Chloride Active 20 MEQ PO DAILY December 14, 2021 12:00am Start: 12-03-2021 End: 07-13-2024 take 2 tablets by mouth once daily Potassium Chloride 10 mEq tablet extended release Active 20 meq PO DAILY December 14, 2021 1:00am supplement Start: 02-23-2021 End: 09-10-2021 take 2 tablets by mouth once daily at breakfast potassium chloride (K-TAB) 10 mEq tablet Indications: Hypokalemia TAKE 2 TABLETS BY MOUTH ONCE DAILY WITH BREAKFAST 180 tablet 0 09/10/2021 Active Comment on above: TAKE 2 TABLETS BY MO UTH ONCE DAILY WITH BREAKFAST Take 2 tablets by mo uth every morning. spironolactone 25 mg oral tablet (20 sources) Aldosterone Antagonist Start: 07-26-19 End: 06-20-19 take 1 tablet by mouth once daily spironolactone (ALDACTONE) 25 mg tablet Indications: Essential hypertension Take 1 tablet by mouth once daily. 90 tablet 3 06/19/2024 06/19/2025 Active Comment on above: Take 1 tablet by dimitir th once daily Take 1 tablet by dimitri th once daily. warfarin sodium 2.5 mg oral tablet (20 sources) Vitamin K Antagonist Start: 09-13-19 25 Warfarin (Jantoven) 2.5 mg Tablet Active 5 mg PO 1700 60 0 September 12, 2024 12:00am Start: 02-16-2024 End: 2024 take 1 tablet by mouth once daily Warfarin 2.5 mg tablet Discontinued 2.5 mg PO DAILY September 10, 2024 12:00am September 12, 2024 2:59pm Completed/Discontinued Medications Medication Drug Class(es) Dates Sig (Normalized) Sig (Original) acetaminophen 500 mg oral tablet (20 sources) Start: 08-14-2019 End: 09-10-2024 take 2 tablets by mouth every six hours as needed for pain Acetaminophen 500 MG tablet Discontinued 1000 mg PO EVERY 6 HOURS NEEDED as needed for Pain Score 1-10/10 240 30 August 17, 2019 12:00am September 15, 2019 12:00am September 16, 2019 12:03am Start: 08-14-2019 End: 12-28-2021 take 1000 mg by mouth every six hours as needed Acetaminophen Discontinued 1000 MG PO EVERY 6 HOURS NEEDED 240 30 August 16, 2019 11:00pm September 15, 2019 11:03pm Start: 07-28-2019 End: 08-14-2019 Acetaminophen 325 MG tablet Discontinued 650 mg PO EVERY 6 HOURS NEEDED as needed for Pain Score 1-10/Temp > 100.7 F 0 July 28, 2019 12:00am August 14, 2019 8:16am Start: 07-28-2019 End: 08-14-2019 take 650 mg by mouth every six hours as needed Acetaminophen Discontinued 650 MG PO EVERY 6 HOURS NEEDED July 27, 2019 11:00pm August 14, 2019 7:16am Start: 07-25-2018 End: 07-28-2019 take 2 tablets by mouth every eight hours as needed for pain Acetaminophen 500 MG tablet Discontinued 1000 mg PO EVERY 8 HOURS as needed for Pain Or Fever July 25, 2019 11:26pm July 28, 2019 11:02am Start: 07-25-2018 End: 07-28-2019 take 1000 mg by mouth every eight hours Acetaminophen Discontinued 1000 MG PO EVERY 8 HOURS July 25, 2019 10:26pm July 28, 2019 10:02am amLODIPine 5 mg oral tablet (18 sources) Dihydropyridine Calcium Channel Karis Start: 07-28-2019 End: 09-10-2024 take 1 tablet by mouth once daily Amlodipine 5 MG tablet Discontinued 5 mg PO DAILY July 28, 2019 8:16pm September 10, 2024 1:23am bp Start: 06-09-2017 End: 07-28-2019 take 1 tablet by mouth once daily Amlodipine 10 mg tablet Discontinued 10 mg PO daily 90 90 0 June 09, 2017 12:00am July 28, 2019 11:10am BP apixaban 5 mg oral tablet (20 sources) Factor Xa Inhibitor Start: 12-18-2021 End: 02-16-2024 take 1 tablet by mouth twice daily Apixaban (Eliquis) 5 mg Tablet Discontinued 5 mg PO TWICE A DAY 60 30 0 December 18, 2021 1:00am December 28, 2021 10:26am Comment on above: Take 5 mg by mouth twice daily. Take 1 tablet by dimitri th twice daily. aspirin 81 mg chewable tablet (20 sources) Platelet Aggregation Inhibitor, Nonsteroidal Anti-inflammatory Drug Start: 07-28-2019 End: 12-14-2021 take 1 tablet by mouth once daily Aspirin 81 MG tablet,chewable Discontinued 81 mg PO DAILY@0800 30 0 August 17, 2019 12:00am December 14, 2021 6:33pm Start: 12-17-2004 End: 06-22-2021 take 1 tablet by mouth once daily Aspirin 325 MG tablet Discontinued 325 mg PO DAILY@0800 September 09, 2017 12:00am September 13, 2017 7:48am HEART Comment on above: Take one(1) tablet d aily. Take 81 mg by mouth once daily. 120 actuat budesonide 0.16 mg/actuat / formoterol fumarate 0.0048 mg/actuat / glycopyrrolate 0.009 mg/actuat metered dose inhaler (9 sources) Corticosteroid, beta2-Adrenergic Agonist Start: End: take 2 puff(s) by inhalation twice daily budesonide-glycopyr -formoterol (BREZTRI AEROSPHERE) 160-9-4.8 mcg/actuation HFA aerosol inhaler Inhale 2 Puffs as instructed two times a day. 1 Each 03/05/2024 03/27/2024 Discontinued (Course of therapy completed) cephalexin 500 mg oral capsule (12 sources) Cephalosporin Antibacterial Start: End: take 1 capsule by mouth every twelve hours Cephalexin 500 mg capsule Discontinued 500 mg PO EVERY 12 HOURS December 14, 2021 6:34pm December 18, 2021 9:26am infection clopidogrel 75 mg oral tablet (20 sources) [id number] Platelet Inhibitor Start: 020 End: take 1 tablet by mouth once daily Clopidogrel 75 MG tablet Discontinued 75 mg PO DAILY December 14, 2021 6:34pm September 10, 2024 1:24am blood thinner Comment on above: Take 1 tablet by dimitri th once daily. docusate sodium 100 mg oral capsule (3 sources) Start: 023 End: take 1 capsule by mouth once daily Docusate Sodium (Dok) 100 mg capsule Discontinued 100 mg PO DAILY September 22, 2022 12:00am September 10, 2024 1:24am doxycycline monohydrate 100 mg oral capsule (20 sources) Tetracycline-class Drug Start: 024 End: 025 take 1 capsule by mouth twice daily Doxycycline Monohydrate 100 mg capsule Discontinued 100 mg PO TWICE A DAY 14 February 07, 2024 1:00am September 10, 2024 1:11am Start: 05-25-2022 End: 05-30-2022 take 1 tablet by mouth twice daily doxycycline monohydrate 100 mg tablet Take 1 tablet by mouth twice daily for 5 days. 10 tablet 0 05/25/2022 05/30/2022 Active Comment on above: Take 1 tablet by dimitri th twice daily for 5 days. escitalopram 10 mg oral tablet (20 sources) [...] tablet 5 08/24/2022 Active Start: 11-16-2021 End: 09-10-2024 take 1 tablet by mouth once daily Escitalopram Oxalate 20 mg tablet Discontinued 20 mg PO DAILY December 14, 2021 1:00am September 10, 2024 1:24am depression Start: 04-09-2021 End: 09-20-2021 take 1 tablet by mouth once daily escitalopram oxalate (LEXAPRO) 20 mg tablet Take 1 tablet by mouth once daily. 90 tablet 1 06/22/2021 09/20/2021 Active Comment on above: Take 1 tablet by dimitri th once daily Take 1 tablet by dimitri th once daily. famotidine 20 mg oral tablet (12 sources) Histamine-2 Receptor Antagonist Start : 07-25 End: 12-28 take 1 tablet by mouth once daily Famotidine 20 MG tablet Discontinued 20 mg PO DAILY July 28, 2019 8:16pm December 28, 2021 10:23am stomach hydroCHLOROthiazide 25 mg oral tablet (6 sources) Thiazide Diuretic Start : 06-09 End: 07-27 take 1 tablet by mouth once daily Hydrochlorothiazide 25 mg tablet Discontinued 25 mg PO daily June 09, 2017 12:00am July 28, 2019 11:12am BP 200 actuat ipratropium bromide 0.017 mg/actuat metered dose inhaler (2 sources) Anticholinergic Start : 03-15 End: 09-10 Ipratropium Hancock (Atrovent Hfa) 17 mcg/actuation HFA aerosol inhaler Discontinued 2 NMA INHALATION Q8H 12.9 0 March 15, 2023 1:00am September 10, 2024 1:19am Start: 03-15-2023 take 1 puff(s) by in halation every eight hours Ipratropium Hancock (Atrovent Hfa) 17 mcg/actuation HFA aerosol inhaler Active 2 PUFF INHALATION Q8H 12.9 March 15, 2023 12:00am levoFLOXacin 500 mg oral tablet (13 sources) Quinolone Antimicrobial Start: 12-18-2021 End: 05-21-2022 take 1 tablet by mouth once daily Levofloxacin 500 mg Tablet Discontinued 500 mg PO DAILY@0600 6 6 0 December 18, 2021 1:00am December 28, 2021 10:20am Comment on above: TAKE 1 TABLET BY DIMITRI ONCE DAILY AT 6AM FOR 6 DAYS Menthol / Zinc Oxide (16 sources) Start: 12-14-2021 End: 12-28-2021 Menthol-Zinc Oxide Discontinued 1 APPLIC TOPICAL TWICE [...] 5:34pm Start: 08-14-2019 End: 01-10-2020 Menthol-Zinc Oxide 1 APPLIC ointment Discontinued 1 NMA TOPICAL TWICE A DAY 0 August 14, 2019 12:00am January 10, 2020 11:25am Please contact the information source for Protocol details. Start: 08-14-2019 End: 01-10-2020 Menthol-Zinc Oxide Discontin ued 1 APPLIC TOPICAL TWICE A DAY August 13, 2019 11:00pm January 10, 2020 10:25am Menthol-Zinc Oxide 1 APPLIC ointment (2 sources) Start: 12-14-2021 End: 12-28-2021 Menthol-Zinc Oxide 1 APPLIC ointment Discontinued 1 NMA TOPICAL TWICE A DAY December 14, 2021 6:34pm December 28, 2021 10:26am skin Start: 08-17-2019 End: 12-14-2021 Menthol-Zinc Oxide 1 APPLIC ointment Discontinued 1 NMA TOPICAL TWICE A DAY 1 0 August 17, 2019 12:00am December 14, 2021 6:34pm nystatin 100 unt/mg topical powder (18 sources) Polyene Antifungal Start: 08-14-2019 End: 12-28-2021 Nystatin 1 APPLIC powder Discontinued 1 NMA TOPICAL TWICE A DAY December 14, 2021 6:34pm December 28, 2021 10:26am skin Start: 08-14-2019 End: 12-28-2021 Nystatin Discontinued 1 APPL IC TOPICAL TWICE A DAY December 14, 2021 5:34pm December 28, 2021 9:26am predniSONE 20 mg oral tablet (16 sources) Start: 02-07-2024 End: 09-10-2024 take 2 tablets by mouth once daily Prednisone 20 mg tablet Discontinued 40 mg PO DAILY 8 0 February 07, 2024 1:00am September 10, 2024 1:19am Start: 03-15-2023 End: 09-10-2024 take 3 tablets by mouth once daily Prednisone 20 mg tablet Discontinued 60 mg PO DAILY 15 March 15, 2023 1:00am September 10, 2024 1:19am Start: 03-15-2023 take 60 mg by mouth [...] 05/21/2022 Discontinued Start: 12-18-2021 End: 12-28-2021 Prednisone 10 mg tablet Discontinued 0 mg PO DAILY 30 0 December 18, 2021 1:00am December 28, 2021 10:20am Please contact the information source for Taper Schedule details. Comment on above: TAKE 4 TABLETS BY MO UTH WITH BREAKFAST FOR 3 DAYS. THEN 3 TABLETS BY MOUTH WITH BREAKFAST FOR 3 DAYS. THEN 2 TABLETS BY MOUTH WITH BREAKFAST FOR 3 DAYS. THEN 1 TABLET BY MOUTH WITH BREAKFAST FOR 3 DAYS. tiotropium 0.018 mg inhalation powder (6 sources) Anticholinergic Start: 09-10-19 18 End: 01-13-20 18 take 1 capsule by inhalation once daily Tiotropium Hancock 18 MCG capsule, w/inhalation device Discontinued 18 ug IH DAILY September 09, 2017 12:00am January 12, 2018 3:22pm COPD Start: 09-09-2017 End: 01-12-2018 take 18 ug by inhalation once daily Tiotropium Hancock Discontinued 18 MCG IH DAILY September 08, 2017 11:00pm January 12, 2018 2:22pm traMADol hydrochloride 50 mg oral tablet (9 sources) Opioid Agonist Start: 09-22-2022 End: 09-10-2024 take 1 tablet by mouth every four hours as needed for pain Tramadol 50 mg tablet Discontinued 50 mg PO EVERY 4 HOURS NEEDED as needed for Pain 20 3 0 September 22, 2022 12:00am September 10, 2024 1:24am Start: 07-25-2018 End: 08-05-2018 take 50-100 mg by mouth every six hours as needed for pain Tramadol 50 MG tablet Discontinued 50 - 100 mg PO EVERY 6 HOURS NEEDED as needed for Mod-Severe Pain (4-10/10) 30 7 0 July 25, 2018 12:00am July 31, 2018 12:00am August 05, 2018 12:08am Problems Active Problems Problem Classification Problem Date Documented Da te Episodic/Chronic Acute cerebrovascular disease (20 sources) Cerebrovascular accident; Translations: [Cerebral infarction, unspecified] Onset: 2 12-23-2021 Chronic Comment on above: left brainstem Acute myocardial infarction (20 sources) Myocardial infarction; Translations: [Non-ST elevation (NSTEMI) myocardial infarction] Onset: 2 Chronic Adjustment disorders (20 sources) Adjustment disorder with mixed anxiety and depressed mood; Translations: [Adjustment disorder with mixed anxiety and depressed mood] Onset: 7 02-01-2017 Chronic Anxiety disorders (20 sources) Anxiety; Translations: [Anxiety disorder, unspecified] Onset: 2 12-23-2021 Chronic Aspiration pneumonitis; food/vomitus (4 sources) Aspiration pneumonia; Translations: [Pneumonitis due to inhalation of food and vomit] Onset: 5 09-10-2024 Episodic Cancer of prostate (20 sources) Malignant tumor of prostate; Translations: [Malignant neoplasm of prostate] Onset: 2 12-23-2021 Chronic Cardiac dysrhythmias (20 sources) Paroxysmal ventricular tachycardia; Translations: [Ventricular tachycardia] Onset: 5 01-11-2005 Chronic Chronic obstructive pulmonary disease and bronchiectasis (20 sources) Acute exacerbation of chronic obstructive airways disease with asthma; Translations: [Chronic obstructive pulmonary disease with (acute) exacerbation] Onset: 6 Chronic Complication of device; implant or graft (20 sources) Disorder of coronary artery; Translations: [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] Onset: 2 12-23-2021 Chronic Congestive heart failure; nonhypertensive (7 sources) Heart failure, unspecified; Translations: [Acute exacerbation of chronic heart failure] Onset: 5 09-10-2024 Chronic Coronary atherosclerosis and other heart disease (20 sources) Disorder of cardiovascular system; Translations: [Atherosclerotic heart disease of [place] coronary artery without angina pectoris] Onset: 5 12-19-2014 Chronic Coronary atherosclerosis and other heart disease (2 sources) Presence of coronary angioplasty implant and graft; Translations: [Presence of coronary angioplasty implant and graft] Onset: 5 Episodic Disorders of lipid metabolism (20 sources) Hyperlipidemia; Translations: [Hyperlipidemia, unspecified] Onset: 5 12-19-2014 Chronic E Codes: Fall (3 sources) Fall; Translations: [Unspecified fall, initial encounter] 09-22-2022 Episodic Esophageal disorders (20 sources) Gastroesophageal reflux disease; Translations: [Gastro-esophageal reflux disease without esophagitis] Onset: 2 12-23-2021 Chronic Essential hypertension (20 sources) Essential hypertension; Translations: [Essential (primary) hypertension] Onset: 5 12-19-2014 Chronic Fluid and electrolyte disorders (20 sources) Hypokalemia; Translations: [Hypokalemia] Onset: 2 Episodic Fracture of lower limb (6 sources) Fracture of ankle; Translations: [Other fracture of right lower leg, initial encounter for closed fracture] 09-22-2022 Episodic Fracture of neck of femur (hip) (6 sources) Fracture of bone of hip region; Translations: [Fracture of unspecified part of neck of unspecified femur, initial encounter for closed fracture] 07-24-2018 Episodic Hypertension with complications and secondary hypertension (1 source) Hypertensive urgency ; Translations: [Hypertensive urgency] Chronic Malaise and fatigue (20 sources) Asthenia; Translations: [Other malaise] Onset: 2 12-23-2021 Episodic Mood disorders (20 sources) Depressive disorder; Translations: [Depression] Onset: 9 12-27-2008 Chronic Mycoses (4 sources) Tinea cruris; Translations: [Tinea cruris] Onset: 5 09-10-2024 Episodic Nonspecific chest pain (4 sources) Chest pain; Translations: [Chest pain, unspecified] Onset: 5 09-10-2024 Episodic Other aftercare (1 source) Post-discharge follow-up; Translations: [Encounter for follow-up examination after completed treatment for conditions other than malignant neoplasm] Episodic Other aftercare (1 source) Long-term current use of anticoagulant; Translations: [market research consultant (current) use of anticoagulants] 02-16-2024 Episodic Other aftercare (3 sources) nursing home (current) use of anticoagulants; Translations: [nursing home current use of anticoagulant therapy] Onset: 5 Episodic Other aftercare (2 sources) Anticoagulant control - finding; Translations: [Encounter for therapeutic drug level monitoring] 09-10-2024 Episodic Other aftercare (2 sources) Encounter for therapeutic drug level monitoring; Translations: [Encounter for therapeutic drug level monitoring] Onset: 5 Episodic Other circulatory disease (20 sources) History of angioplasty; Translations: [Peripheral vascular angioplasty status with implants and grafts] Onset: 2 12-23-2021 Chronic Other connective tissue disease (20 sources) Neurological symptom; Translations: [Unspecified symptoms and signs involving the nervous system] Onset: 2 12-23-2021 Episodic Other connective tissue disease (2 sources) Swelling of lower limb; Translations: [Other specified soft tissue disorders] 07-13-2024 Episodic Other connective tissue disease (1 source) Other specified soft tissue disorders; Translations: [Leg swelling] Onset: 5 Episodic Other gastrointestinal disorders (20 sources) Dysphagia; Translations: [Dysphagia, unspecified] Onset: 2 12-23-2021 Episodic Other lower respiratory disease (6 sources) Dyspnea on exertion; Translations: [Other forms of dyspnea] 07-26-2019 Episodic Other lower respiratory disease (1 source) Hypoxemia; Translations: [Hypoxemia] 06-07-2023 Episodic Other lower respiratory disease (3 sources) Multiple nodules of lung; Translations: [Other nonspecific abnormal finding of lung field] 03-05-2024 Episodic Other lower respiratory disease (1 source) Hypoxia; Translations: [Hypoxemia] 03-27-2024 Episodic Other lower respiratory disease (1 source) Hypoxemia; Translations: [Hypoxia] Onset: 5 Episodic Other lower respiratory disease (2 sources) Respiratory insufficiency; Translations: [Other abnormalities of breathing] 09-10-2024 Episodic Other lower respiratory disease (2 sources) Other abnormalities of breathing; Translations: [Other abnormalities of breathing] Onset: 5 Episodic Other male genital disorders (1 source) Secondary erectile dysfunction; Translations: [Male erectile dysfunction, unspecified] Chronic Other nervous system disorders (7 sources) Polyneuropathy; Translations: [Polyneuropathy, unspecified] Chronic Other nervous system disorders (20 sources) Idiopathic peripheral neuropathy; Translations: [Hereditary and idiopathic neuropathy, unspecified] Onset: 2 06-22-2021 Chronic Other nervous system disorders (1 source) Hereditary and idiopathic neuropathy, unspecified; Translations: [Idiopathic peripheral neuropathy] Onset: 2 Chronic Other nervous system disorders (20 sources) Dysarthria; Translations: [Dysarthria and anarthria] Onset: 2 12-23-2021 Episodic Other nutritional; endocrine; and metabolic disorders (20 sources) Obese class I; Translations: [Obesity, Class I, BMI 30-34.9] Onset: 5 02-14-2024 Chronic Other nutritional; endocrine; and metabolic disorders (2 sources) Body mass index 25-29 - overweight; Translations: [Overweight] 09-10-2024 Episodic Other nutritional; endocrine; and metabolic disorders (2 sources) Overweight; Translations: [Overweight] Onset: 5 Episodic Other screening for suspected conditions (not mental disorders or infectious disease) (20 sources) Electrocardiogram abnormal; Translations: [Abnormal electrocardiogram [ECG] [EKG]] Onset: 8 12-23-2021 Episodic Other upper respiratory disease (20 sources) Paralysis of left vocal cord; Translations: [Paralysis of vocal cords and larynx, unilateral] Onset: 2 12-23-2021 Chronic Other upper respiratory disease (20 sources) Paralysis of larynx; Translations: [Paralysis of vocal cords and larynx, unspecified] Onset: 7 12-23-2021 Chronic Other upper respiratory disease (20 sources) Hoarse; Translations: [Dysphonia] Onset: 7 12-23-2021 Episodic Other upper respiratory disease (2 sources) Acute bronchospasm; Translations: [Acute bronchospasm] 03-15-2023 Episodic Paralysis (20 sources) Right hemiparesis; Translations: [Hemiplegia, unspecified affecting right dominant side] Onset: 2 12-23-2021 Chronic Peripheral and visceral atherosclerosis (3 sources) Arteriosclerotic vascular disease; Translations: [Peripheral vascular disease, unspecified] Onset: 5 07-13-2024 Chronic Pneumonia (except that caused by tuberculosis or sexually transmitted disease) (20 sources) Pneumococcal pneumonia; Translations: [Pneumonia due to Streptococcus pneumoniae] Onset: 2 Episodic Residual codes; unclassified (20 sources) Obstructive sleep apnea syndrome; Translations: [Obstructive sleep apnea (adult) (pediatric)] Onset: 5 12-19-2014 Chronic Residual codes; unclassified (6 sources) Central sleep apnea syndrome; Translations: [Primary central sleep apnea] 07-24-2018 Chronic Residual codes; unclassified (1 source) Primary central sleep apnea; Translations: [Unspecified sleep apnea] Chronic Residual codes; unclassified (2 sources) Central sleep apnea in conditions classified elsewhere; Translations: [Central sleep apnea in conditions classified elsewhere] Onset: 5 Chronic Respiratory failure; insufficiency; arrest (adult) (4 sources) Chronic hypoxemic respiratory failure; Translations: [Chronic respiratory failure with hypoxia] Onset: 5 03-05-2024 Chronic Screening and history of mental health and substance abuse codes (1 source) Ex-smoker; Translations: [Personal history of nicotine dependence] 03-05-2024 Episodic Thyroid disorders (20 sources) Acquired hypothyroidism; Translations: [Hypothyroidism, unspecified] Onset: 3 03-30-2018 Chronic Unclassified (6 sources) left vocal cord paralysis 07-26-2019 Unclassified (1 source) PAD (peripheral artery disease) 07-13-2024 Unclassified (1 source) Chronic atrial fibrillation, unspecified; Translations: [Chronic atrial fibrillation (HCC)] Onset: 5 Unclassified (1 source) Make an appointment to see Dr. Zaidi on 09/17/2024-have your INR rechecked Unclassified (1 source) Call for an appointment Past or Other Problems Problem Classification Problem Date Documented Date Episodic/Chronic Immunizations and screening for infectious disease (20 sources) Patient encounter status; Translations: [Encounter for immunization] Onset: 01-12-2018 12-23-2021 Episodic Other lower respiratory disease (20 sources) Dyspnea; Translations: [Dyspnea, unspecified] Onset: 09-04-2009 09-04-2009 Episodic Other lower respiratory disease (1 source) Other nonspecific abnormal finding of lung field; Translations: [Lung nodules] Onset: 03-27-2024 Episodic Other lower respiratory disease (1 source) Shortness of breath; Translations: [Shortness of breath] Onset: 03-01-2024 Episodic Other nervous system disorders (20 sources) Acute postoperative pain; Translations: [Other acute postprocedural pain] Onset: 09-13-2017 12-23-2021 Episodic Results Test Name Value Interpretation Reference Range Facility Anion gap in Serum or Plasma Ordered By: Aayush Sibley on 09-12-2024 Anion gap [Moles/Vol] 11 mmol/L 5-15 [facility] BUN/creatinine ratioOrdered By: Aayush Sibley on 09-12-2024 Urea nitrogen/Creatinine [Mass ratio] 48.1 mg/mg High 10-20 [facility] Basic Metabolic Profile (BMP )on 09-12-2024 BUN/CRE 48.1 RATIO High -20 [facility] Comment on above: Performed By: #### M 300.4600, L400.0001, M300.4500 #### [facility] [address] [place], [address] Calcium [Mass/Vol] 8.9 mg/dL Normal 7.6-11.0 [facility] Comment on above: Performed By: #### M 300.4600, L400.0001, M300.4500 #### [facility] [address] [place], [address] Chloride [Moles/Vol] 96 mmol/L Low 98-[address] [facility] Comment on above: Performed By: #### M 300.4600, L400.0001, M300.4500 #### [facility] [address] [place], [address] CO2 [Moles/Vol] 34.3 mmol/L High 21.0-32.0 [facility] Comment on above: Performed By: #### M 300.4600, L400.0001, M300.4500 #### [facility] [address] [place], [address] Creatinine [Mass/Vol] 0.92 mg/dL Normal 0.70-1.20 [facility] Comment on above: Performed By: #### M 300.4600, L400.0001, M300.4500 #### [facility] [address] [place], [address] ECRCL 69.17 ml/min Normal 50-250 [facility] Comment on above: Performed By: #### M 300.4600, L400.0001, M300.4500 #### [facility] [address] [place], [address] GAP 11 Normal 5-15 [facility] Comment on above: Performed By: #### M 300.4600, L400.0001, M300.4500 #### [facility] [address] [place], [address] GFR/1.73 sq M.predicted among non-blacks MDRD (S/P/Bld) [Vol rate/Area] 82 mL/min/{1.73_m2} Normal >60 [facility] Comment on above: Result Comment: mL/m in/1.73m2 CKD-EPI Creatinine Equation (2020) Performed By: #### M 300.4600, L400.0001, M300.4500 #### [facility] [address] [place], [address] Glucose [Mass/Vol] 120 mg/dL High 70-99 [facility] Comment on above: Performed By: #### M 300.4600, L400.0001, M300.4500 #### [facility] [address] [place], [address] Potassium [Moles/Vol] 4.0 mmol/L Normal 3.3-5.1 [facility] Comment on above: Result Comment: Hemo lysis present, Results??could be affected. ?? Performed By: #### M 300.4600, L400.0001, M300.4500 #### [facility] [address] [place], [address] Sodium [Moles/Vol] 142 mmol/L Normal 133-145 [facility] Comment on above: Performed By: #### M 300.4600, L400.0001, M300.4500 #### [facility] [address] [place], [address] Urea nitrogen [Mass/Vol] 44 mg/dL High 4-19 [facility] Comment on above: Performed By: #### M 300.4600, L400.0001, M300.4500 #### [facility] [address] [place], [address] Carbon dioxide, total [Moles /volume] in Central venous bloodOrdered By: Aayush Sibley on 09-12-2024 CO2 [Moles/Vol] 34.3 mmol/L High 21.0-32.0 [facility] Chest PA and Lateralon 09-12 Chest PA and Lateral [facility] [address] [place] [address] Chest PA and Lateral MR#: [id number] Acct: [id number] Name: ARTURO PEDERSEN Rep #: [id number] : 1940 M 83 From: Jad Wheeler MD PCP: Dr. Shayne Zaidi MD Status: ADM IN Study: Chest PA and Lateral Date of Exam: 09/12/24 Exam# [id number] Ordering Dr: Aayush Sibley DO PROCEDURE: CHEST PA AND LATERAL 09/12/2024 REASON FOR EXAM: HYPOXIA TECHNIQUE: CHEST PA AND LATERAL COMPARISON: CT 09/10/2024 FINDINGS: Normal heart size. Status post CABG. Elevated right hemidiaphragm. Bibasilar airspace disease, better seen on recent CT, atelectasis/consolidati on. No effusion or pneumothorax. L2 compression fracture, no evidence of acuity. RAD/Chest PA and Lateral IMPRESSION: Bibasilar airspace disease, better seen on recent comparison CT Reading Location: [facility]-2 CC: Dr. Shayne Zaidi MD; Dr. Aayush Sibley DO Shell Trim Operator: Signed Normal [facility] Chloride assayOrdered By: Velia Sibley on 09-12-2024 Chloride [Moles/Vol] 96 mmol/L Low 98-[address] [facility] Discharge Instructionon 08-0 Discharge Instruction [facility] Medical Records Department [address] [place] [address] Instructions for Home/Discharge Instructions 09/12/24 1439 MR#: [id number] Acct: [id number] Name: ATRURO PEDERSEN Rep #: [id number] : 1940 83 From: Aayush Sibley DO PCP: Dr. Shayne Zaidi MD Status:ADM IN Discharge Instructions DC O2, CPAP, BIPAP needs Home O2 Discharge instructions: Yes Type of respiratory needs?: Oxygen Oxygen frequency: Continuous Continuous oxygen liters per minute: 3 L Dressing / Incision Discharge Activity: Return to Normal Activity Weight Bearing Status: Full weight bearing Follow Up Care Test Results: Test results from this visit will be discussed in further detail at your follow-up appointment, if applicable. Discharge Plan Admission Admit Date/Time: 09/10/24 01:26 Primary Reason for Your Visit: Congestive heart failure, aspiration pneumonia, atrial fibrillation Attending Provider: Aayush Sibley Primary Care Provider: Shayne Zaidi Consulting Providers: Kristopher Valencia; Ranjit Fuentes; Douglas Alegre; Yifan Katz; Jasvir Deutsch; Rocky Coronado; Yoseph Winn; Dallas Muller; Kristopher Ray; John Nayak; Rosalino Asif; Patricia Burden; Nan Mcleannivasa; Omar Hidalgo; Arturo Rose NP; Jenny Yancey PA; Moses Alexis Discharge Orders/Prescriptions Prescriptions: New warfarin [Jantoven] 2.5 mg Tablet 5 mg PO 1700 Qty: 60 0RF atenolol 50 mg Tablet 50 mg PO DAILY Qty: 30 0RF amoxicillin-pot clavulanate 875-125 mg Tablet 1 tab PO BIDCM Qty: 11 0RF Rx Instructions: Take with food furosemide [Lasix] 40 mg tablet 40 mg PO BID Qty: 60 0RF Continued levothyroxine 50 MCG tablet 50 mcg PO DAILY atorvastatin 40 MG tablet 40 mg PO QHS spironolactone 25 MG tablet 25 mg PO DAILY potassium chloride 10 mEq tablet extended release 20 meq PO DAILY Patient Comments: TAKE 2 TABLETS BY MOUTH ONCE DAILY WITH BREAKFAST aspirin 81 MG tablet,chewable 81 mg PO DAILY@0800 albuterol sulfate [Ventolin HFA] 90 mcg/actuation HFA aerosol inhaler 2 puff inhalation Q4H PRN PRN (Reason: Wheezing) Qty: 1 0RF fluticasone propion-salmeterol 250-50 mcg/dose blister with device 1 inh inhalation Q12H nitroglycerin 0.3 mg tablet, sublingual 0.3 mg sublingual Q5M PRN (Reason: chest pain) gabapentin 300 mg capsule 300 mg PO BID paroxetine HCl 40 mg tablet 40 mg PO DAILY Discontinued atenolol 50 mg tablet 25 mg PO DAILY warfarin 2.5 mg tablet 2.5 mg PO DAILY furosemide 20 mg tablet 20 mg PO DAILY Referrals / Follow Up: Shayne Zaidi MD [Primary Care Provider] - In 1 Week (Make an appointment to see Dr. Zaidi on 09/17/2024-have your INR rechecked) Jenny Yancey PA [Med Staff - [facility] Practice Prof] - Within 2 Weeks (Call for an appointment) Disposition Disposition (needs filled in before D/C Order can be placed): Home, Self Care 09/12/24 1503 Aayush Sibley DO CC: MAINTENANCE SUPERVISOR MECHANICALShena Rose; Dr. Douglas Alegre MD; Dr. Ranjit Fuentes MD; Dr. Jasvir Deutsch MD; Dr. Yifan Katz MD; Dr. Rocky Coronado MD; Dr. Yoseph Winn MD; Dr. Dallas Muller MD; Dr. Kristopher Ray DO; Dr. Kristopher Valencia DO; Dr. John Nayak MD; Dr. Shayne Zaidi MD; Dr. Rosalino Asif MD; Dr. Patricia Burden MD; Dr. Omar Hidalgo MD; Dr. Martínez Mclean MD; JI Valencia; JI Burgos Signed Normal [facility] Glomerular filtration rate ( GFR) estimation/1.73 sq m using serum, plasma, or whole bOrdered By: Aayush Sibley on 09-12-2024 GFR/1.73 sq M.predicted among non-blacks MDRD (S/P/Bld) [Vol rate/Area] 82 mL/min/{1.73_m2} >60 [facility] Comment on above: mL/min/1.73m2 CKD-EP I Creatinine Equation (2020) International normalized rat io (INR) calculationOrdered By: Aayush Sibley on 09-12-2024 INR Coag (Bld) [Relative time] 1.4 {INR} [facility] Potassium measurement (mass/ volume)Ordered By: Aayush Sibley on 09-12-2024 Potassium (Unsp spec) [Mass/Vol] 4.0 mmol/L 3.3-5.1 [facility] Comment on above: Hemolysis present, R esults could be affected. Prothrombin Time w/INRon INR Coag (PPP) [Relative time] 1.4 {INR} Normal [facility] Comment on above: Performed By: #### M 300.4600, L400.0001, M300.4500 #### [facility] [address] [place], [address] PT Coag (PPP) [Time] 17.8 s High 11.7-14.[address] [facility] Comment on above: Performed By: #### M 300.4600, L400.0001, M300.4500 #### [facility] [address] [place], [address] Prothrombin timeOrdered By: Aayush Sibley on 09-12-2024 PT Coag (PPP) [Time] 17.8 s High 11.7-14.[address] [facility] Serum creatinine measurement (mass/volume)Ordered By: Aayush Sibley on 09-12-2024 Creatinine [Mass/Vol] 0.92 mg/dL 0.70-1.20 [facility] Serum glucose measurement (m ass/volume)Ordered By: Aayush Sibley on 09-12-2024 Glucose [Mass/Vol] 120 mg/dL High 70-99 [facility] Serum or plasma calcium regan urement (mass/volume)Ordered By: Aayush Sibley on 09-12-2024 Calcium [Mass/Vol] 8.9 mg/dL 7.6-11.0 [facility] Serum or plasma urea nitroge n measurement (mass/volume)Ordered By: Aayush Sibley on 09-12-2024 Urea nitrogen [Mass/Vol] 44 mg/dL High 4-19 [facility] Sodium levelOrdered By: Aayush Sibley on 09-12-2024 Sodium [Moles/Vol] 142 mmol/L 133-145 [facility] Basic Metabolic Profile (BMP )on 09-11-2024 BUN/CRE 43.1 RATIO High 10-20 [facility] Comment on above: Performed By: #### L 500.2500 #### [facility] [address] [facility] [address] Calcium [Mass/Vol] 9.0 mg/dL Normal 7.6-11.0 [facility] Comment on above: Performed By: #### L 500.2500 #### [facility] [address] [place], [address] Chloride [Moles/Vol] 96 mmol/L Low 98-[address] [facility] Comment on above: Performed By: #### L 500.2500 #### [facility] [address] [facility] [place], [address] CO2 [Moles/Vol] 26.8 mmol/L Normal 21.0-32.0 [facility] Comment on above: Performed By: #### L 500.2500 #### [facility] [address] [place], [address] Creatinine [Mass/Vol] 0.88 mg/dL Normal 0.70-1.20 [facility] Comment on above: Performed By: #### L 500.2500 #### [facility] [address] [place], [address] ECRCL 72.70 ml/min Normal 50-250 [facility] Comment on above: Performed By: #### L 500.2500 #### [facility] [address] [place], [address] GAP 15 Normal 5-15 [facility] Comment on above: Performed By: #### L 500.2500 #### [facility] [address] [place], [address] GFR/1.73 sq M.predicted among non-blacks MDRD (S/P/Bld) [Vol rate/Area] 85 mL/min/{1.73_m2} Normal >60 [facility] Comment on above: Result Comment: mL/m in/1.73m2 CKD-EPI Creatinine Equation (2020) Performed By: #### L 500.2500 #### [facility] [address] [place], [address] Glucose [Mass/Vol] 132 mg/dL High 70-99 [facility] Comment on above: Performed By: #### L 500.2500 #### [facility] [address] [place], [address] Potassium [Moles/Vol] 3.9 mmol/L Normal 3.3-5.1 [facility] Comment on above: Result Comment: Hemo lysis present, Results??could be affected. ?? Performed By: #### L 500.2500 #### [facility] [address] [place], [address] Sodium [Moles/Vol] 138 mmol/L Normal 133-145 [facility] Comment on above: Performed By: #### L 500.2500 #### [facility] [address] [place], [address] Urea nitrogen [Mass/Vol] 38 mg/dL High 4-19 [facility] Comment on above: Performed By: #### L 500.2500 #### [facility] [address] [place], [address] Tessa 09-11-2024 [facility] Telephone (POOJAWADS) ARTURO PEDERSEN ([id number]) 1940 M Date Time Provider Department 09/11/24 PADDY ZAIDI During your visit today, we recorded the following information about you: Talia Ann LPN 09/11/2024 1:31 PM Signed Received 09/11/2024 from [facility]. Placed in provider's inbox for review. Route to CT for scanning. Allergies As of Date: 09/11/2024 Noted Allergy Reaction ASPIRIN 04/19/2018 16 - Unknown OXYCODONE 04/19/2018 14 - Other: See Comments PERCODAN (OXYCODONE-ASPIRIN) 12/17/2004 1 - Mental Status Change Date Reviewed: 09/09/2024 Reviewed by: Daina Sampson, FREIDA - Fully Assessed Reason for Visit: Received Outside Medical Records [[id number]] Cmt: [facility] H AND P Shortness of Breath, Cough, cp anxiety weakness. 09/10/2024 Prescriptions as of 09/11/2024 - levothyroxine (SYNTHROID) 50 mcg tablet Take [...] once daily. 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] 12/17/2004 Essential hypertension [I10] 12/17/2004 Hyperlipidemia [E78.5] 12/17/2004 PAROX VENTRIC TACHYCARD [I47.20] 01/11/2005 Depression [F32.A] 12/27/2008 Dyspnea [R06.00] 09/04/2009 Acquired hypothyroidism [E03.9] 09/26/2012 Obstructive sleep apnea on CPAP [G47.33] 12/19/2014 Adjustment disorder with mixed anxiety and depr*02/01/2017 Pure hypercholesterolemia [E78.00] 06/12/2018 Idiopathic peripheral neuropathy [G60.9] 06/22/2021 Abnormal electrocardiogram [R94.31] 10/19/2017 Anxiety [F41.9] 12/23/2021 Atherosclerotic heart disease of g[place] coronar*10/19/2017 Cerebrovascular accident (CVA) (HCC) [I63.9] 12/23/2021 [...] 30-34.9 [E66.811] 02/14/2024 Encounter Status:Closed by TALIA ANN [facility] ([id number]) 1940 M Date Time Provider Department 09/11/24 PADDY ZAIDI During your visit today, we recorded the following information about you: Talia Ann LPN 09/11/2024 1:52 PM Signed Received 09/11/2024 from [facility]. Placed in provider's inbox for review. Route to CT for scanning Allergies As of Date: 09/11/2024 Noted Allergy Reaction ASPIRIN 04/19/2018 16 - Unknown OXYCODONE 04/19/2018 14 - Other: See Comments PERCODAN (OXYCODONE-ASPIRIN) 12/17/2004 1 - Mental Status Change Date Reviewed: 09/09/2024 Reviewed by: Daina Sampson RN - Fully Assessed Reason for Visit: Received Outside Medical Records [3579] Cmt: [facility] Consultation to cardiology 09/10/2024 Afib RVR Prescriptions as of 09/11/2024 - levothyroxine (SYNTHROID) 50 mcg tablet Take [...] once daily. 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] 12/17/2004 Essential hypertension [I10] 12/17/2004 Hyperlipidemia [E78.5] 12/17/2004 PAROX VENTRIC TACHYCARD [I47.20] 01/11/2005 Depression [F32.A] 12/27/2008 Dyspnea [R06.00] 09/04/2009 Acquired hypothyroidism [E03.9] 09/26/2012 Obstructive sleep apnea on CPAP [G47.33] 12/19/2014 Adjustment disorder with mixed anxiety and depr*02/01/2017 Pure hypercholesterolemia [E78.00] 06/12/2018 Idiopathic peripheral neuropathy [G60.9] 06/22/2021 Abnormal electrocardiogram [R94.31] 10/19/2017 Anxiety [F41.9] 12/23/2021 Atherosclerotic heart disease of g[place] coronar*10/19/2017 Cerebrovascular accident (CVA) (HCC) [I63.9] 12/23/2021 [...] 30-34.9 [E66.811] 02/14/2024 Encounter Status:Closed by TALIA ANN on 09/11/[address] [facility] Modified Barium Swallow Stud yon 09-11-2024 Modified Barium Swallow Study [facility] Speech Pathology [address] [place] [address] Modified Barium Swallow Study MR#: [id number] Acct: [id number] Name: ARTURO PEDERSEN Rep #: [id number] : 1940 83 From: Uyen Silva Modified Barium Swallow Patient Information Study Date: 09/11/24 Study Time: 08:30 Direct Billable Minutes: 120 Total Minutes procedure reportin Diagnosis: J69.0 - Pneumonitis due to inhalation of food and vomit Referring Physician: Aayush Sibley Medical History: Mr. Pedersen is an 83-year-old male with a complex medical history, including CAD (CABG x2, stents x2), paroxysmal atrial fibrillation (on warfarin), hypertension, hyperlipidemia, hypothyroidism, COPD (Stage 2), central sleep apnea (on CPAP), CVA with right hemiparesis, left vocal cord paralysis, dysphagia, peripheral neuropathy, GERD, depression, prostate cancer (s/p radiation), and osteoarthritis. He is overweight (BMI 29.3) and a former smoker (50 pack-years, quit 1992). He presented with 2???3 days of progressive dyspnea, productive cough, pleuritic chest pain, fatigue, and anxiety. He denied fever, chills, palpitations, or GI/ symptoms. A CXR at [place] [facility] showed right hemidiaphragm elevation and left perihilar opacity suggestive of pneumonia. Labs revealed elevated pro-BNP (2400), WBC 10.2K, and a subtherapeutic INR (1.4). EKG showed atrial fibrillation with HR 106 bpm. He was treated with IV antibiotics, steroids, nebulizers, diuretics, and lorazepam, then admitted to PCU. Speech therapy was consulted due to concern for aspiration pneumonia (CT chest: bilateral airspace disease). Mr. Pedersen has a history of dysphagia and cognitive deficits, and in 2019, it was recommended that he follow a modified diet with nectar-thick liquids. However, he did not adhere to this recommendation and was admitted on regular textures and thin liquids. Given his history of dysphagia, left vocal cord paralysis, current pneumonia, and signs of aspiration at bedside, a Modified Barium Swallow Study (MBSS) is recommended for objective swallow assessment. Current Diet Ordered: Regular textures / Thin liquids Mental Status: Impaired Respiratory Status: Oxygenating on 3L/M nasal cannula Penetration-Aspiration Scale Penetration-Aspiration Scale: OBJECTIVE ASSESSMENT OF SWALLOW FUNCTION (QUANTITATIVE ??? PER TRIAL): PENETRATION / ASPIRATION SCALE (MACE): 1 = does not enter airway 2 = enters airway/above vocal folds/ejected 3 = enters airway/above vocal folds/not ejected 4 = enters airway/contacts vocal folds/ejected 5 = enters airway/contacts vocal folds/not ejected 6 = enters airway/below vocal folds/ejected 7 = enters airway/below vocal folds/not ejected despite effort 8 = enters airway/below vocal folds/no effort VIDEOFLOROSCOPIC SCALE SCORE (MACE): Grade I = aspiration of material that has penetrated into the laryngeal vestibule, intact cough reflex Grade II = aspiration < 10 % of the bolus, intact cough reflex Grade III = aspiration of < 10 % of the bolus, reduced cough reflex or aspiration of > 10 % of the bolus, intact cough reflex Grade IV = aspiration of > 10 % of the bolus, reduced cough reflex Penetration-Aspiration Scale Score Thin Liquid via teaspoon: Result: 5= enters airways/contacts vocal folds/not ejected Thin Liquid via teaspoon Trial 2: Result: 5= enters airways/contacts vocal folds/not ejected Thin Liquid via small single sip: cup: Result: 5= enters airways/contacts vocal folds/not ejected Thin Liquid via small single sip: cup Trial 2: Result: 5= enters airways/contacts vocal folds/not ejected Morse Thick Liquid via small single sip: cup: Result: 2= enter airway/above vocal folds/ejected Morse Thick Liquid via small single sip: cup Trial 2: Result: 3= enters airways/above vocal folds/not ejected Morse Thick Liquid via small single sip: cup Trial 3: Result: 1= does not enter airway Thin Liquid via small single sip: cup Trial 3: Result: 3= enters airways/above vocal folds/not ejected Thin Liquid via small single sip: cup Trial 4: Result: 5= enters airways/contacts vocal folds/not ejected Honey Thick Liquid via small single sip: cup: Result: 1= does not enter airway Pudding via teaspoon: Result: 1= does not enter airway Cookie: Result: 1= does not enter airway Morse Thick Liquid via small single sip: cup Trial 4: Result: 1= does not enter airway Thin Liquid via small single sip: cup Trial 5: Result: 8= enters airway/below vocal folds/no effort Oral Phase Labial Seal: No Labial Escape Tongue Control During Bolus Hold: Posterior escape of greater than half of bolus Bolus Preparation/Mastication : Slow prolonged chewing/mashing with complete recollection Bolus Transport/Lingual Motion: Delayed initiation of tongue motion Oral Residue: Trace residue lining oral structures Pharyngeal Phase Initiation of Pharyngeal Swallow: Bolus head i (more content not included)... Normal [facility] 12 Lead EKGon 09-10-2024 12 Lead EKG [facility] Cardiovascular Services [address] [place] [address] 12 Lead EKG 09/10/24 0122 MR#: [id number] Acct: [id number] Name: ARTURO PEDERSEN Rep #: [id number] : 1940 83 From: Dallas Muller MD Attending Dr: Dr. Aayush Sibley DO Status: A DM IN Ordering Dr: Kristopher Valencia DO Date: 09/10/24 Location: [facility] Sex: M C Admitted: 09/10/24 Test Reason : CP ADMIT Blood Pressure : */* mmHG Vent. Rate : 105 BPM Atrial Rate : * BPM P-R Int : * ms QRS Dur : 76 ms QT Int : 300 ms P-R-T Axes : * 13 32 degrees QTcB Int : 396 ms Atrial fibrillation with rapid ventricular response Abnormal ECG When compared with ECG of 15-Mar-2023 13:57, No significant change was found Confirmed by DALLAS MULLER MD ([id number]), international editorial producer JESUS HERNANDEZ ([id number]) on 09/10/2024 8:29:31 AM Referred By: DR Valencia Confirmed By: DALLAS MULLER MD 09/10/24 0829 Date Dallas Muller MD CC: Dr. Kristopher Valencia DO; Dr. Shayne Zaidi MD; Dr. Aayush Sibley DO Signed Normal [facility] Absolute lymphocyte countOrd ered By: Kristopher Diamond on 09-10-2024 Lymphocytes Auto (Unsp spec) [#/Vol] 0.24 10*3/uL Low 0.83-4.51 [facility] Absolute neutrophil countOrd ered By: Kristopher Diamond on 09-10-2024 Neutrophils (Bld) [#/Vol] 10.2 10*3/uL High 2.0-7.7 [facility] Automated lymphocyte count a s percentage of total leukocytesOrdered By: Kristopher Diamond on 09-10-2024 Lymphocytes/100 WBC Auto (Unsp spec) 2.2 % Low 19-41 [facility] Basophil percentageOrdered B y: Kristopher Diamond on 09-10-2024 Basophils/100 WBC (Bld) 0.2 % 0-1 [facility] Bilirubin Test strip Ql (U)O rdered By: Kristopher Diamond on 09-10-2024 Bilirubin Ql (U) Negative Negative [facility] Bilirubin, totalOrdered By: Kristopher Diamond on 09-10-2024 Bilirubin [Mass/Vol] 0.73 mg/dL 0.00-1.[address] [facility] CBC W/Diff, Automatedon Absolute Lymph 0.24 X10 3/uL Low 0.83-4.51 [facility] Comment on above: Performed By: #### L 503.0106, L506.0200, L501.4021, L300.3900, L500.4100, L503.7505, L300.8000, L500.4050, L100.0100, L501.2300, L501.9520, L501.5200 #### [facility] Laboratory [address] [facility] [place] [place], [address] Absolute Neut 10.2 X10 3/uL High 2.0-7.7 [facility] Comment on above: Performed By: #### L 503.0106, L506.0200, L501.4021, L300.3900, L500.4100, L503.7505, L300.8000, L500.4050, L100.0100, L501.2300, L501.9520, L501.5200 #### [facility] [address] [place], [address] Basophils/100 WBC (Bld) 0.2 % Normal 0-1 [facility] Comment on above: Performed By: #### L 503.0106, L506.0200, L501.4021, L300.3900, L500.4100, L503.7505, L300.8000, L500.4050, L100.0100, L501.2300, L501.9520, L501.5200 #### [facility] [address] [facility] [place], [address] (661 Eosinophils/100 WBC (Bld) 0.0 % Normal 0-5 [facility] Comment on above: Performed By: #### L 503.0106, L506.0200, L501.4021, L300.3900, L500.4100, L503.7505, L300.8000, L500.4050, L100.0100, L501.2300, L501.9520, L501.5200 #### [facility] [address] [facility] [place], [place], [phone] (759 Erythrocyte distribution width (RBC) [Ratio] 13.2 % Normal 11.6-14.6 [facility] Comment on above: Performed By: #### L 503.0106, L506.0200, L501.4021, L300.3900, L500.4100, L503.7505, L300.8000, L500.4050, L100.0100, L501.2300, L501.9520, L501.5200 #### [facility] [address] [place], [address] (113) Hematocrit (Bld) [Volume fraction] 44.1 % Normal 40-54 [facility] Comment on above: Performed By: #### L 503.0106, L506.0200, L501.4021, L300.3900, L500.4100, L503.7505, L300.8000, L500.4050, L100.0100, L501.2300, L501.9520, L501.5200 #### [facility] [address] [place], [address] Hemoglobin (Bld) [Mass/Vol] 14.3 g/dL Normal 13.0-16.5 [facility] Comment on above: Performed By: #### L 503.0106, L506.0200, L501.4021, L300.3900, L500.4100, L503.7505, L300.8000, L500.4050, L100.0100, L501.2300, L501.9520, L501.5200 #### [facility] [address] [facility] [place], [address] IG% 0.300 Normal 0.0-0.9 [facility] Comment on above: Result Comment: IG% - Immature Granulocytes (promyelocytes, myelocytes and metamyelocytes) > 1% indicates that a LEFT SHIFT is Present. Performed By: #### L 503.0106, L506.0200, L501.4021, L300.3900, L500.4100, L503.7505, L300.8000, L500.4050, L100.0100, L501.2300, L501.9520, L501.5200 #### [facility] [address] [place], [address] Lymphocytes/100 WBC (Bld) 2.2 % Low 19-41 [facility] Comment on above: Performed By: #### L 503.0106, L506.0200, L501.4021, L300.3900, L500.4100, L503.7505, L300.8000, L500.4050, L100.0100, L501.2300, L501.9520, L501.5200 #### [facility] [address] [place], [address] MCH (RBC) [Entitic mass] 31.0 pg Normal 27.0-32.0 [facility] Comment on above: Performed By: #### L 503.0106, L506.0200, L501.4021, L300.3900, L500.4100, L503.7505, L300.8000, L500.4050, L100.0100, L501.2300, L501.9520, L501.5200 #### [facility] [address] [place], [address] MCHC (RBC) [Mass/Vol] 32.4 g/dL Normal 32-36 [facility] Comment on above: Performed By: #### L 503.0106, L506.0200, L501.4021, L300.3900, L500.4100, L503.7505, L300.8000, L500.4050, L100.0100, L501.2300, L501.9520, L501.5200 #### [facility] [address] [place], [address] MCV (RBC) [Entitic vol] 95.7 fL High 80-94 [facility] Comment on above: Performed By: #### L 503.0106, L506.0200, L501.4021, L300.3900, L500.4100, L503.7505, L300.8000, L500.4050, L100.0100, L501.2300, L501.9520, L501.5200 #### [facility] [address] [place], [address] Monocytes/100 WBC (Bld) 2.8 % Normal 0-10 [facility] Comment on above: Performed By: #### L 503.0106, L506.0200, L501.4021, L300.3900, L500.4100, L503.7505, L300.8000, L500.4050, L100.0100, L501.2300, L501.9520, L501.5200 #### [facility] [address] [place], [address] Neutrophils/100 WBC (Bld) 94.5 % High 47-70 [facility] Comment on above: Performed By: #### L 503.0106, L506.0200, L501.4021, L300.3900, L500.4100, L503.7505, L300.8000, L500.4050, L100.0100, L501.2300, L501.9520, L501.5200 #### [facility] [address] [place], [address] (261) Nucleated RBC (Bld) [#/Vol] 0 10*3/uL Normal 0-5 [facility] Comment on above: Performed By: #### L 503.0106, L506.0200, L501.4021, L300.3900, L500.4100, L503.7505, L300.8000, L500.4050, L100.0100, L501.2300, L501.9520, L501.5200 #### [facility] [address] [place], [place], [phone] (408) Platelet mean volume (Bld) [Entitic vol] 9.2 fL Normal 6.2-12.0 [facility] Comment on above: Performed By: #### L 503.0106, L506.0200, L501.4021, L300.3900, L500.4100, L503.7505, L300.8000, L500.4050, L100.0100, L501.2300, L501.9520, L501.5200 #### [facility] [address] [place], [place], [phone] (329) Platelets (Bld) [#/Vol] 224 10*3/uL Normal 150-450 [facility] Comment on above: Performed By: #### L 503.0106, L506.0200, L501.4021, L300.3900, L500.4100, L503.7505, L300.8000, L500.4050, L100.0100, L501.2300, L501.9520, L501.5200 #### [facility] [address] [place], [place], [phone] (673) RBC (Bld) [#/Vol] 4.61 10*6/uL Normal 4.6-6.[address] [facility] Comment on above: Performed By: #### L 503.0106, L506.0200, L501.4021, L300.3900, L500.4100, L503.7505, L300.8000, L500.4050, L100.0100, L501.2300, L501.9520, L501.5200 #### [facility] [address] [place], [place], [phone] (816) RDW SD 47.6 fl High 35.1-43.9 [facility] Comment on above: Performed By: #### L 503.0106, L506.0200, L501.4021, L300.3900, L500.4100, L503.7505, L300.8000, L500.4050, L100.0100, L501.2300, L501.9520, L501.5200 #### [facility] [address] [place], [place], [phone] (127) WBC (Bld) [#/Vol] 10.8 10*3/uL Normal 4.4-11.[address] [facility] Comment on above: Performed By: #### L 503.0106, L506.0200, L501.4021, L300.3900, L500.4100, L503.7505, L300.8000, L500.4050, L100.0100, L501.2300, L501.9520, L501.5200 #### [facility] [address] [place], [place], [address] CO2 (BldV) [Moles/Vol]Ordere d By: Kristopher Diamond on 09-10-2024 CO2 [Moles/Vol] 37 mmol/L High 23-33 [facility] Calculated very low density lipoprotein (VLDL) cholesterol measurementOrdered By: Kristopher Diamond on 09-10-2024 Calculated very low density lipoprotein (VLDL) cholesterol measurement 8 mg/dL 5-40 [facility] Chest without Contraston Chest without Contrast [facility] Imaging Services [address] [place], [place] [address] Chest without Contrast MR#: [id number] Acct: [id number] Name: ARTURO PEDERSEN Rep #: [id number] : 1940 M 83 From: Jad Wheeler MD PCP: Dr. Shayne Zaidi MD Status: ADM IN Study: Chest without Contrast Date of Exam: 09/10/24 Exam# [id number] Ordering Dr: Kristopher Valencia DO PROCEDURE: CHEST WITHOUT CONTRAST 09/10/2024 REASON FOR EXAM: SUSPECTED PNA ON CXR. TECHNIQUE: Chest CT without contrast. Coronal and Sagittal reconstruction series were provided. One or more dose reduction techniques were used (e.g., Automated exposure control, adjustment of the mA and/or kV according to patient size, use of iterative reconstruction technique RADIATION DOSE SUMMARY: CTDlvol: 20 mGy DLP: 691 mGycm COMPARISON: CT 02/07/2024, FINDINGS: Unremarkable base of neck and axilla. Thoracic spine scoliosis and degeneration. Normal esophagus. Normal heart size. Status post CABG. Mediastinum is shifted to the left and the right hemidiaphragm is markedly elevated. Gynecomastia. No acute chest wall findings. Cholelithiasis. No acute upper abdominal findings. There is bilateral lower lobe bronchial wall thickening and debris. On the left, there is upper lobe airspace disease favoring atelectasis. There is posterior lower lobe airspace disease, likely a mix of atelectasis and consolidation. On the right, there is posterior upper lobe airspace disease favoring atelectasis. There is lower lobe airspace disease likely a mix of atelectasis and consolidation. No effusion or pneumothorax. CT/Chest without Contrast IMPRESSION: Bilateral airspace disease, correlate for aspiration pneumonia. Reading Location: [place] [address] CC: Dr. Kristopher Valencia ; Dr. Shayne Zaidi MD Shell Trim Operator: Signed Normal [facility] Comprehensive Metabolic Prof ilon 09-10-2024 Albumin [Mass/Vol] 3.7 g/dL Normal 3.4-4.8 [facility] Comment on above: Performed By: #### M 300.4600, L400.0001, M300.4500 #### [facility] Laboratory [address] [place], [address] Albumin/Globulin [Mass ratio] 0.9 {ratio} Normal 0.9-2.4 [facility] Comment on above: Performed By: #### M 300.4600, L400.0001, M300.4500 #### [facility] Laboratory [address] [place], [address] ALK PHOS 199 U/L High 40-129 [facility] Comment on above: Performed By: #### M 300.4600, L400.0001, M300.4500 #### [facility] [address] [place], [address] ALT [Catalytic activity/Vol] 34 U/L Normal <=46 [facility] Comment on above: Performed By: #### M 300.4600, L400.0001, M300.4500 #### [facility] [address] [place], [address] AST [Catalytic activity/Vol] 41 U/L High <=37 [facility] Comment on above: Performed By: #### M 300.4600, L400.0001, M300.4500 #### [facility] Laboratory [address] [place], [address] Bilirubin [Mass/Vol] 0.73 mg/dL Normal 0.00-1.[address] [facility] Comment on above: Performed By: #### M 300.4600, L400.0001, M300.4500 #### [facility] [address] [place], [address] BUN/CRE 27.5 RATIO High 10-20 [facility] Comment on above: Performed By: #### M 300.4600, L400.0001, M300.4500 #### [facility] [address] [place], [address] Calcium [Mass/Vol] 8.9 mg/dL Normal 7.6-11.0 [facility] Comment on above: Performed By: #### M 300.4600, L400.0001, M300.4500 #### [facility] [address] [place], [address] Chloride [Moles/Vol] 98 mmol/L Normal 98-[address] [facility] Comment on above: Performed By: #### M 300.4600, L400.0001, M300.4500 #### [facility] [address] [place], [address] CO2 [Moles/Vol] 25.7 mmol/L Normal 21.0-32.0 [facility] Comment on above: Performed By: #### M 300.4600, L400.0001, M300.4500 #### [facility] [address] [place], [address] Creatinine [Mass/Vol] 0.75 mg/dL Normal 0.70-1.20 [facility] Comment on above: Performed By: #### M 300.4600, L400.0001, M300.4500 #### [facility] [address] [place], [address] ECRCL 80.95 ml/min Normal 50-250 [facility] Comment on above: Performed By: #### M 300.4600, L400.0001, M300.4500 #### [facility] [address] [place], [address] GAP 16 High 5-15 [facility] Comment on above: Performed By: #### M 300.4600, L400.0001, M300.4500 #### [facility] [address] [place], [address] GFR/1.73 sq M.predicted among non-blacks MDRD (S/P/Bld) [Vol rate/Area] 89 mL/min/{1.73_m2} Normal >60 [facility] Comment on above: Result Comment: mL/m in/1.73m2 CKD-EPI Creatinine Equation (2020) Performed By: #### M 300.4600, L400.0001, M300.4500 #### [facility] [address] [place], [address] Globulin (S) [Mass/Vol] 3.9 g/dL Normal 2.2-4.2 [facility] Comment on above: Performed By: #### M 300.4600, L400.0001, M300.4500 #### [facility] [address] [place], [address] Glucose [Mass/Vol] 174 mg/dL High 70-99 [facility] Comment on above: Performed By: #### M 300.4600, L400.0001, M300.4500 #### [facility] [address] [place], [address] Potassium [Moles/Vol] 3.9 mmol/L Normal 3.3-5.1 [facility] Comment on above: Performed By: #### M 300.4600, L400.0001, M300.4500 #### [facility] [address] [place], [address] Sodium [Moles/Vol] 139 mmol/L Normal 133-145 [facility] Comment on above: Performed By: #### M 300.4600, L400.0001, M300.4500 #### [facility] [address] [place], [address] T PROT 7.6 g/dL Normal 5.9-8.4 [facility] Comment on above: Performed By: #### M 300.4600, L400.0001, M300.4500 #### [facility] [address] [place], [address] Urea nitrogen [Mass/Vol] 21 mg/dL High 4-19 [facility] Comment on above: Performed By: #### M 300.4600, L400.0001, M300.4500 #### [facility] Laboratory [address] [place], [address] Consultation - Cardiologyon 09-10-2024 Consultation - Cardiology [facility] Medical Records Department [address] [place] [address] Consultation - Cardiology 09/10/24 0751 MR#: [id number] Acct: [id number] Name: ARTURO PEDERSEN Rep #: [id number] : 1940 83 From: Dallas Muller MD PCP: Dr. Shayne Zaidi MD Status:ADM IN Location: [place] [address] Assessment Plan Assessment/Plan (1) Paroxysmal atrial fibrillation with RVR: PLAN: Patient presents with paroxysmal atrial fibrillation with a rapid ventricular response rate. It appears that he has a pulmonary condition at this time. My recommendation will be to continue the current management and increase the beta-karis to 50 mg a day and restart his anticoagulation. * It is not clear to me whether he is on warfarin for financial reasons or preference. (2) History of coronary artery stent placement: PLAN: He does have a history of coronary disease status post angioplasty and stenting in 2021 of the distal left main and then of the circumflex artery. The saphenous vein graft to the obtuse marginal branch and the ECHEVARRIA to the LAD were noted to be patent there was an occluded right coronary artery with [id number] collaterals. * In light of his negative troponins and his nonacute EKG changes we will continue to maximally medically manage the above. (3) HTN (hypertension): PLAN: His blood pressure is under good control at this time and I would not recommend we make any other changes. Thank you for allowing me to participate in the care of your patient. Please don't hesitate to call if any issues arise. (4) Acute exacerbation of chronic heart failure: PLAN: He does have evidence of congestive heart failure and he will continue on the spironolactone, intravenous Lasix for now, and the beta-karis. * An echocardiogram is being performed to assess his ventricular function. (5) Hyperlipidemia: PLAN: He does have a history of hyperlipidemia. In face of his coronary disease we will continue with high intensity statin. HPI Consult Data Date of Consult: 09/10/24 HPI Narrative HPI Narrative: ARTURO PEDERSEN, is a 83 M who we are asked to see due to atrial fibrillation with a rapid ventricular response rate. He does have a history of hypertension, hyperlipidemia, coronary artery disease status post coronary bypass surgery in 1992 with a ECHEVARRIA to the LAD and a saphenous vein graft to the circumflex artery. He was here in 2021 and had angioplasty and stenting to the circumflex artery. He also at that time was noted to have paroxysmal atrial fibrillation. He however has not had any office follow-up since then. He apparently has had a history of cerebrovascular accident with right hemiparesis chronic HOARSENESS and elevated right hemidiaphragm. Approximately 2 to 3 days prior to admission he had an onset of dyspnea on exertion and a congestive cough with brownish sputum and intermittent difficulty breathing. He denied any pain per se. He was apparently sent to [place] emergency room and a chest x-ray that I reviewed and right hemidiaphragm elevation which was chronic but read as pneumonia he had an elevated proBNP of 2400. He was treated with antibiotics steroids Lasix and an EKG demonstrated atrial fibrillation with a rate of 106 bpm and with his intermittent pleuritic chest discomfort he was admitted here and cardiology was called for further evaluation and management. This morning he appears to be fairly stable his heart rate is in the 90s and he is pleasantly confused but no other problems. 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) Central sleep apnea Stage 2 moderate COPD by GOLD classification HTN (hypertension) Hoarseness left vocal cord paralysis Home Medications ???Medication ???Instructions ???Recorded ???Last Taken ???Type levothyroxine 50 mcg tablet 50 mcg PO DAILY thyroid 07/25/19 1 02/13/21 History atorvastatin 40 mg tablet 40 mg PO QHS cholesterol 07/28/19 12/14/21 History spironolactone 25 mg tablet 25 mg PO DAILY diuretic 07/28/19 1 02/13/21 History aspirin 81 mg chewable tablet 81 mg PO DAILY@0800 health 2 12/14/21 History atenolol 50 mg tablet 25 mg PO DAILY bp 12/14/21 2 History potassium chloride 10 mEq 20 meq PO DAILY supplement 2 12/14/21 History tablet,extended release albuterol sulfate 90 mcg/actuation 2 puff inhalation Q4H PRN PRN Unknown Rx aerosol inhaler (Ventolin HFA) Wheezing ##1 fluticasone 250 mcg-salmeterol 50 1 inh inhalation Q12H 09/10/24 Un known History mcg/dose blistr powdr for inhalation furosemide 20 mg tablet 20 mg PO DAILY 09/10/24 Unknown Hi story gabapentin 300 mg capsule 300 mg PO BID 09/10/24 Unknown His tory nitroglycerin 0.3 mg sublingual (more content not included)... Normal [facility] D-Dimer Quantitative (DVT/PE )on 09-10-2024 D-DIMER QUANT 0.39 FEU/ug/m Normal 0.27-0.49 [facility] Comment on above: Result Comment: NORM AL D-Dimer level (<0.50) indicates no DVT or PE. Performed By: #### M 300.4600, L400.0001, M300.4500 #### [facility] [address] [place], [address] Echo Complete W/ Contraston 09-10-2024 Echo Complete W/ Contrast [facility] [address] [place] [address] Echo Complete W/ Contrast 09/10/24 1001 MR#: [id number] Acct: [id number] Name: ARTURO PEDERSEN Rep #: [id number] : 1940 83 From: Dallas Muller MD Attending Dr: Dr. Aayush Sibley DO Status: A DM IN Ordering Dr: Kristopher Valencia DO Date: 09/10/24 Location: [facility] Sex: M C Admitted: 09/10/24 Reason For Study Reason For Study: CHF Procedure This was a 2D Doppler, Color Flow transthoracic echocardiogram. The study was technically difficult. Contrast injection was performed. Patient scanned sitting in chair. Exam performed portable in patient room. Left Ventricle Normal LV size. Left ventricular systolic function is lower limits of normal. The estimated ejection fraction is 53 %. No regional wall motion abnormalities noted. Right Ventricle Mildly dilated right ventricle. Normal systolic function. Atria Normal left atrium. The right atrium is mildly enlarged. Mitral Valve Mild focal mitral valve calcification, bileaflet. Tricuspid Valve Normal tricuspid valve. Mild (1+) tricuspid valve insufficiency. Pulmonary artery systolic pressure is 40 mmHg. Aortic Valve Trisinus/trileaflet aortic valve. Pulmonic Valve Normal pulmonic valve. Great Vessels Normal aortic root. The pulmonary artery is normal size. Inferior vena cava collapse with respiration. Pericardium/Pleural No pericardial effusion. Medication Diluted definity 3ml given slow IV push to enhance endocardial definition. MMode/2D Measurements Calculations LVIDd: 4.6 cm IVSd: 1.4 cm Ao root diam: 3.3 cm LVIDs: 3.5 cm LVPWd: 1.6 cm FS: 23.9 % LAV(MOD-bp): 57.2 ml LVAd ap4: 23.6 cm2 SV(MOD-sp4): 29.7 ml LAV(MOD-bp) Indexed: 26.6 ml/m2 LVLd ap4: 7.2 cm SI(MOD-sp4): 13.8 ml/m2 LAV(MOD-sp2): 66.3 ml EDV(MOD-sp4): 61.7 ml LAV(MOD-sp4): 42.3 ml EDV(sp4-el): 65.4 ml LVAs ap4: 15.7 cm2 LVLs ap4: 6.5 cm ESV(MOD-sp4): 32.0 ml ESV(sp4-el): 32.5 ml EF(MOD-sp4): 48.2 % EF(sp4-el): 50.4 % SV(sp4-el): 33.0 ml LA A4 area: 15.9 cm2 LA dimension(2D): 5.0 cm RA A4 area: 21.1 cm2 Doppler Measurements Calculations MV E max larissa: 84.2 cm/sec Ao V2 max: 106.4 cm/sec LV V1 max: 79.3 cm/sec Ao max P.5 mmHg LV V1 max P.5 mmHg Ao V2 mean: 73.5 cm/sec LV V1 mean P.3 mmHg Ao mean P.5 mmHg LV V1 mean: 52.5 cm/sec Ao V2 VTI: 17.5 cm LV V1 VTI: 13.3 cm AV (velocity ratio): 0.76 PA V2 max: 97.2 cm/sec TR max larissa: 302.3 cm/sec PA V2 mean: 71.4 cm/sec TR max P.6 mmHg ECHO/Echo Complete W/ Contrast Interpretation Summary Normal LV size. Left ventricular systolic function is lower limits of normal. The estimated ejection fraction is 53 %. Mild focal mitral valve calcification, bileaflet. Pulmonary artery systolic pressure is 40 mmHg. Ordering Physician: Kristopher Valencia Referring Physician: SHAYNE ZAIDI Performed By: Manju Sahu RCS 09/10/24 137 Date Dallas Muller MD CC: Dr. Kristopher Valencia DO; Dr. Shayne Zaidi MD; Dr. Aayush Sibley DO Date Dictated: 09/10/24 1001 Date Transcribed: 09/10/241718 Shell Trim Operator: Signed Normal [facility] Echocardiogram study reportO rdered By: Dallas Muller on 09-10-2024 Study report [facility] Cardi[facility] Services [address] [place] [address] Echo Complete W/ Contrast 09/10/24 1001 MR#: [id number] Acct: [id number] Name: ARTURO PEDERSEN Rep #:[id number] : 1940 83 From: Dallas Moody Attending Dr: Dr. Aayush Sibley, DO Status: ADM IN Ordering Dr: Kristopher Valencia DO Date: 09/10/24 Location: [facility] Sex: M C Admitted: 09/10/24 Reason For Study Reason For Study: CHF Procedure This was a 2D Doppler, Color Flow transthoracic echocardiogram. The study was technically difficult. Contrast injection was performed. Patient scanned sitting in chair. Exam performed portable in patient room. Left Ventricle Normal LV size. Left ventricular systolic function is lower limits of normal. The estimated ejection fraction is 53 %. No regional wall motion abnormalities noted. Right Ventricle Mildly dilated right ventricle. Normal systolic function. Atria Normal left atrium. The right atrium is mildly enlarged. Mitral Valve Mild focal mitral valve calcification, bileaflet. Tricuspid Valve Normal tricuspid valve. Mild (1+) tricuspid valve insufficiency. Pulmonary artery systolic pressure is 40 mmHg. Aortic Valve Trisinus/trileaflet aortic valve. Pulmonic Valve Normal pulmonic valve. Great Vessels Normal aortic root. The pulmonary artery is normal size. Inferior vena cava collapse with respiration. Pericardium/Pleural No pericardial effusion. Medication Diluted definity 3ml given slow IV push to enhance endocardial definition. MMode/2D Measurements & Calculations LVIDd: 4.6 cm IVSd: 1.4 cm Ao root diam: 3.3 cm LVIDs: 3.5 cm LVPWd: 1.6 cm FS: 23.9 % LAV(MOD-bp): 57.2 ml LVAd ap4: 23.6 cm2 SV(MOD-sp4): 29.7 ml LAV(MOD-bp) Indexed: 26.6 ml/m2 LVLd ap4: 7.2 cm SI(MOD-sp4): 13.8 ml/m2 LAV(MOD-sp2): 66.3 ml EDV(MOD-sp4): 61.7 ml LAV(MOD-sp4): 42.3 ml EDV(sp4-el): 65.4 ml LVAs ap4: 15.7 cm2 LVLs ap4: 6.5 cm ESV(MOD-sp4): 32.0 ml ESV(sp4-el): 32.5 ml EF(MOD-sp4): 48.2 % EF(sp4-el): 50.4 % SV(sp4-el): 33.0 ml LA A4 area: 15.9 cm2 LA dimension(2D): 5.0 cm RA A4 area: 21.1 cm2 Doppler Measurements & Calculations MV E max larissa: 84.2 cm/sec Ao V2 max: 106.4 cm/sec LV V1 max: 79.3 cm/sec Ao max P.5 mmHg LV V1 max P.5 mmHg Ao V2 mean: 73.5 cm/sec LV V1 mean P.3 mmHg Ao mean P.5 mmHg LV V1 mean: 52.5 cm/sec Ao V2 VTI: 17.5 cm LV V1 VTI: 13.3 cm AV (velocity ratio): 0.76 PA V2 max: 97.2 cm/sec TR max larissa: 302.3 cm/sec PA V2 mean: 71.4 cm/sec TR max P.6 mmHg ECHO/Echo Complete W/ Contrast Interpretation Summary Normal LV size. Left ventricular systolic function is lower limits of normal. The estimated ejection fraction is 53 %. Mild focal mitral valve calcification, bileaflet. Pulmonary artery systolic pressure is 40 mmHg. Ordering Physician: Kristopher Valencia Referring Physician: SHAYNE ZAIDI Performed By: Manju Sahu RCS 09/10/24 715 Date _ Dallas Muller MD CC: Dr. Kristopher Valencia DO; Dr. Shyane Zaidi MD; Dr. Aayush Sibley DO ~ Date Dictated: 09/10/24 1001 Date Transcribed: 09/10/241718 Shell Trim Operator: Signed [facility] Work Phone: Electrocardiogram reportOrde red By: Dallas Muller on 09-10-2024 EKG study [facility] Cardiovascular Services [address] [place] [id number] 12 Lead EKG 09/10/24 0122 MR#: [id number] Acct: [id number] Name: ARTURO PEDERSEN Rep #:[id number] : 1940 83 From: Dallas Muller MD Attending Dr: Dr. Aayush Sibley DO Status: ADM IN Ordering Dr: Kristopher Valencia DO Date: 09/10/24 Location: [facility] Sex: M C Admitted: 09/10/24 Test Reason : CP ADMIT Blood Pressure : */* mmHG Vent. Rate : 105 BPM Atrial Rate : * BPM P-R Int : * ms QRS Dur : 76 ms QT Int : 300 ms P-R-T Axes : * 13 32 degrees QTcB Int : 396 ms Atrial fibrillation with rapid ventricular response Abnormal ECG When compared with ECG of 15-Mar-2023 13:57, No significant change was found Confirmed by RENZO GRAHAM, DALLAS ([id number]), international editorial producer JESUS HERNANDEZ ([id number]) on 09/10/2024 8:29:31 AM Referred By: DR Valencia Confirmed By: DALLAS MULLER MD 09/10/24828 Date _ Dallas Muller MD CC: Dr. Kristopher Valencia DO; Dr. Shayne Zaidi MD; Dr. Aayush Sibley DO ~ Signed [facility] Work Phone: Eosinophil percentageOrdered By: Kristopher Diamond on 09-10-2024 Eosinophils/100 WBC (Bld) 0.0 % 0-5 [facility] Erythrocyte distribution wid th ratioOrdered By: Kristopher Diamond on 09-10-2024 Erythrocyte distribution width (RBC) [Ratio] 13.2 % 11.6-14.6 [facility] Erythrocyte distribution wid th standard deviationOrdered By: Kristopher Diamond on 09-10-2024 Erythrocyte distribution width (RBC) [Ratio] 47.6 fl High 35.1-43.9 [facility] Folate [Mass/volume] in Seru m or PlasmaOrdered By: Kristopher Diamond on 09-10-2024 Folate [Mass/Vol] 7.94 ng/mL 4.60-34.80 [facility] Comment on above: Hemolysis, Results w ill be affected, Requires Recollection. Folates,Serum (Folic Acid)on 09-10-2024 FOLATES,SERUM 7.94 ng/mL Normal 4.60-34.80 [facility] Comment on above: Order Comment: N Result Comment: Hemo lysis, Results will be affected, Requires Recollection. Performed By: #### M 300.4600, L400.0001, M300.4500 #### [facility] [address] [place], [address] H AND P Exam - Hospitaliston 09-10-2024 H&P Exam - Hospitalist [facility] Medical Records Department [address] [place] [address] H P Exam - Hospitalist 09/10/24 0118 MR#: [id number] Acct: [id number] Name: ARTURO PEDERSEN Rep #: [id number] : 1940 83 From: Kristopher Valencia DO PCP: Dr. Shayne Zaidi MD Status:ADM IN Location: [place] [address] HPI - General General Date of Admission: 09/10/24 Date of Service: 09/10/24 Chief Complaint: Shortness of Breath, Cough, Chest Pain, Anxiety and Generalized Weakness. HPI Narrative ARTURO PEDERSEN, is a 83 M with a past medical history of essential hypertension; on amlodipine, atenolol and spironolactone, hyperlipidemia; on atorvastatin, hypothyroidism; on levothyroxine, overweight; with BMI of 29.3 this admission, central sleep apnea; on CPAP, CAD; s/p non-ST elevation AL with subsequent CABG x 2 (1992) and stents x 2 placed here (2021) on baby aspirin and clopidogrel, paroxysmal atrial fibrillation; on warfarin, history of CVA; with Right hemiparesis, history of Left vocal cord paralysis with chronic hoarseness, history of dysphagia, former tobacco abuse x 50 pack years (quit 1992); with subsequent COPD, chronic Right hemidiaphragm elevation, idiopathic peripheral neuropathy; causing numbness and pain in both feet on gabapentin nightly, history of prostate cancer; s/p radiation treatment, depression with anxiety and panic attacks; on escitalopram, history of GERD; currently not on treatment and OA; with history of Right ankle fracture and Right THR with chronic pain; on as needed tramadol every 4 hours as needed who was transferred from [place] ER with complaints of shortness of breath, chest pain, cough, anxiety and generalized weakness. Mr. Pedersen reports his symptoms began approximately 2-3 days prior to admission with a gradual- onset of dyspnea on exertion that progressed to shortness of breath at rest with a URI symptoms. He also admits to congested cough productive of brownish sputum with intermittent severe difficulty breathing triggering chest pain and panic attacks. He states his chest pain is exacerbated by cough and deep breathing and is not exacerbated by palpation. He states his pain is not improved with rest or anything. He states his symptoms are similar to his previous bouts of pneumonia with COPD exacerbation. He admits to associated fatigue, congested cough, chest pain, intermittent lightheadedness and mild lower extremity edema. He denies related fever, chills, visual changes, runny nose, sore throat, palpitations, heart racing, abdominal pain, nausea, vomiting, diarrhea, constipation, neck pain, back pain, dysuria, hematuria, headache, confusion or rash. At [place] ER he was noted to have a CXR that revealed Right hemidiaphragm elevation with Left perihilar opacity with patient subsequently diagnosed with Pneumonia in addition to elevated pro-BNP of 2.4K consistent with AE CHF; of uncertain subtype complicated by clinical evidence of AE COPD causing patient to be treated with IV ceftriaxone, IV azithromycin, IV Solu-Medrol, DuoNebs, IV furosemide and oral lorazepam with an incidentally noted subtherapeutic INR of 1.4 and EKG revealing Atrial Fibrillation with heart rate of 106 bpm and WBC of 10.2 K compounded by complaints of chest pain that are suspected to be at least partially pleuritic in nature in the setting of known CAD with all resulting in complaints of Generalized Weakness. He was then admitted to the PCU for ongoing care for stay that is expected to extend beyond 2 midnights. 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) Central sleep apnea Stage 2 moderate COPD by GOLD classification HTN (hypertension) Hoarseness left vocal cord paralysis Home Medications ???Medication ???Instructions ???Recorded ???Last Taken ???Type levothyroxine 50 mcg tablet 50 mcg PO DAILY thyroid 07/25/19 1 02/13/21 History atorvastatin 40 mg tablet 40 mg PO QHS cholesterol 07/28/19 12/14/21 History spironolactone 25 mg tablet 25 mg PO DAILY diuretic 07/28/19 1 02/13/21 History aspirin 81 mg chewable tablet 81 mg PO DAILY@0800 health 2 12/14/21 History atenolol 50 mg tablet 25 mg PO DAILY bp 12/14/21 2 History potassium chloride 10 mEq 20 meq PO DAILY supplement 2 12/14/21 History tablet,extended release albuterol sulfate 90 mcg/actuation 2 puff inhalation Q4H PRN PRN Unknown Rx aerosol inhaler (Ventolin HFA) Wheezing ##1 fluticasone 250 mcg-salmeterol 50 1 inh inhalation Q12H 09/10/24 Un known History mcg/dose blistr powdr for inhalation furosemide 20 mg tablet 20 mg PO DAILY 09/10/24 Unknown Hi story gabapentin 300 mg capsule 300 mg PO BID 09/10/24 Unknown His tory nitroglycerin 0.3 mg (more content not included)... Normal [facility] Hematocrit Auto (Bld) [Volum e fraction]Ordered By: Kristopher Diamond on 09-10-2024 Hematocrit (Bld) [Volume fraction] 44.1 % 40-54 [facility] Hemoglobin A1con 09-10-2024 HbA1c (Bld) [Mass fraction] 5.5 % Normal <=5.6 [facility] Comment on above: Result Comment: Norm al < 5.7 % Prediabetic 5.7 - 6.4 % Diabetic >or= 6.5 % Please note range changes. Performed By: #### L 431.4811 #### [facility] [address] [place], [address] Hemoglobin A1c percentageOrd ered By: Kristopher Diamond on 09-10-2024 HbA1c (Bld) [Mass fraction] 5.5 % <5.7 [facility] Comment on above: Normal < 5.7 % Predi abetic 5.7 - 6.4 % Diabetic >or= 6.5 % Please note range changes. Hemoglobin measurementOrdere d By: Kristopher Diamond on 09-10-2024 Hemoglobin (Bld) [Mass/Vol] 14.3 g/dL 13.0-16.5 [facility] Immature granulocytes/100 WB C Auto (Bld)Ordered By: Kristopher Diamond on 09-10-2024 Immature granulocytes/100 WBC (Bld) 0.300 % 0.0-0.9 [facility] Comment on above: IG% - Immature Granu locytes (promyelocytes, myelocytes and metamyelocytes) > 1% indicates that a LEFT SHIFT is Present. Ketones Test strip Ql (U)Ord ered By: Kristopher Diamond on 09-10-2024 Ketones Ql (U) Negative Negative [facility] L501.4021on 09-10-2024 Trop T High Sen 8 ng/L Normal <=22 [facility] Comment on above: Performed By: #### M 300.4600, L400.0001, M300.4500 #### [facility] [address] [place], [address] LDL calc ser/plasOrdered By: Kristopher Diamond on 09-10-2024 Cholesterol in LDL [Mass/Vol] 40 mg/dL [facility] Comment on above: Oxyksbxkev=297-897 m g/dL & Higher Jpci=798 mg/dL or greaterFriedwald Equation for LDL-C Laboratory - Chemistry and C hemistry - challengeOrdered By: Kristopher Diamond on 09-10-2024 AST [Catalytic activity/Vol] 41 U/L High <38 [facility] Legionella Antigen Urineon 0 09-10-2024 LEGU URINE, RANDOM Legionella Antigen result interpretation: L pneumo Ag Ur Ql Negative Presumptive negative for Legionella pneumophila serogroup 1 antigen in urine, suggesting no recent or current infection. Legionella Ag, Urine Negative (See interpretation below) Normal [facility] Comment on above: Performed By: #### M 300.4600, L400.0001, M300.4500 #### [facility] [address] [place], [address] Lipid Profileon 09-10-2024 CHOL:HDL 2.30 Normal [facility] Comment on above: Performed By: #### M 300.4600, L400.0001, M300.4500 #### [facility] [address] [place], [address] Cholesterol [Mass/Vol] 85 mg/dL Normal <=200 [facility] Comment on above: Result Comment: Chol esterol level, Desirable <200 mg/dL Borderline high cholesterol 200-239 mg/dL High cholesterol >=240 mg/dL Recommendations of the NCEP Adult Treatment Panel for the following risk-cutoff thresholds for the [place] population. Performed By: #### M 300.4600, L400.0001, M300.4500 #### [facility] [address] [place], [address] Cholesterol in HDL [Mass/Vol] 37 mg/dL Low [facility] Comment on above: Result Comment: Jordana onal Cholesterol Education Program (NCEP) guidelines: <40 mg/dL: Low HDL-cholesterol (major risk factor for CHD) >= 60 mg/dL: High HDL-cholesterol (negative risk factor for CHD) HDL-cholesterol is affected by a number of factors, e.g. smoking, exercise, hormones, sex and age. Performed By: #### M 300.4600, L400.0001, M300.4500 #### [facility] [address] [place], [address] Cholesterol in LDL [Mass/Vol] 40 mg/dL Normal [facility] Comment on above: Result Comment: Bord pdlbex=207-225 mg/dL Higher Tabr=707 mg/dL or greater Friedwald Equation for LDL-C Performed By: #### M 300.4600, L400.0001, M300.4500 #### [facility] [address] [place], [address] Cholesterol in VLDL [Mass/Vol] 8 mg/dL Normal 5-40 [facility] Comment on above: Performed By: #### M 300.4600, L400.0001, M300.4500 #### [facility] [address] [place], [address] Triglyceride [Mass/Vol] 42 mg/dL Normal [facility] Comment on above: Result Comment: The drugs N-Acetylcysteine and Metamizole may falsely depress this assay. Normal range: <150 mg/dL Borderline High: 150-199 mg/dL High: 200-499 mg/dL Very High: >500 mg/dL Performed By: #### M 300.4600, L400.0001, M300.4500 #### [facility] [address] [place], [address] MCV (mean corpuscular volume ) determinationOrdered By: Kristopher Diamond on 09-10-2024 MCV (RBC) [Entitic vol] 95.7 fL High 80-94 [facility] Magnesiumon 09-10-2024 Magnesium [Mass/Vol] 2.1 mg/dL Normal 1.5-2.[address] [facility] Comment on above: Performed By: #### M 300.4600, L400.0001, M300.4500 #### [facility] [address] [place], [address] Magnesium measurement (mass/ volume)Ordered By: Kristopher Diamond on 09-10-2024 Magnesium (Unsp spec) [Mass/Vol] 2.1 mg/dL 1.5-2.2 [facility] Mean corpuscular hemoglobin (MCH) determinationOrdered By: Kristopher Diamond on 09-10-2024 MCH (RBC) [Entitic mass] 31.0 pg 27.0-32.0 [facility] Mean corpuscular hemoglobin concentration (MCHC) determinationOrdered By: Kristopher Diamond on 09-10-2024 MCHC (RBC) [Mass/Vol] 32.4 g/dL 32-36 [facility] Mean platelet volume determi nationOrdered By: Kristopher Diamond on 09-10-2024 Platelet mean volume (Bld) [Entitic vol] 9.2 fL 6.2-12.0 [facility] Microscopic analysis of urin e for red blood cells (RBC)Ordered By: Kristopher Diamond on 09-10-2024 Microscopic analysis of urine for red blood cells (RBC) 0-5 SEEN /hpf 0-5 [facility] Monocyte percentageOrdered B y: Kristopher Diamond on 09-10-2024 Monocytes/100 WBC (Bld) 2.8 % 0-10 [facility] Mucus LM Ql (Urine sed)Order ed By: Kristopher Diamond on 09-10-2024 Mucus Ql (Urine sed) 0 SEEN /hpf [facility] [facility] Natriuretic peptide.B prohor dianne N-Terminal [Mass/volume] in Serum or PlasmaOrdered By: Kristopher Diamond on 09-10-2024 Natriuretic peptide.B prohormone N-Terminal [Mass/Vol] 3825 pg/mL High <1800 [facility] Comment on above: Heart Failure Unlike ly: < 300 pg/mLHeart Failure Likely< 50 Years: > 450 pg/mL50-75 Years: > 900 pg/mL>75 Years: > 1800 pg/mL Neutrophil percentageOrdered By: Kristopher Diamond on 09-10-2024 Neutrophils/100 WBC (Bld) 94.5 % High 47-70 [facility] Nitrite Test strip Ql (U)Ord ered By: Kristopher Diamond on 09-10-2024 Nitrite Ql (U) Negative Negative [facility] No Panel InformationOrdered By: Kristopher Diamond on 09-10-2024 Blood Gas Sample Site Not entered [facility] Blood Gas Specimen Type ARIEL [facility] Oxygen Delivery Device Cannula [facility] Nucleated red blood cell per centageOrdered By: Kristopher Diamond on 09-10-2024 Nucleated RBC/100 WBC (Bld) [Ratio] 0 % 0-5 [facility] Phosphoruson 09-10-2024 Phosphate [Mass/Vol] 2.7 mg/dL Normal 2.7-4.[address] [facility] Comment on above: Performed By: #### M 300.4600, L400.0001, M300.4500 #### [facility] [address] [place], [place], [phone] Platelet countOrdered By: Matthieu Diamond on 09-10-2024 Platelets (Bld) [#/Vol] 224 10*3/uL 150-450 [facility] Pro- Brain NATRIURETIC PEPTI Angel 09-10-2024 Natriuretic peptide B (Bld) [Mass/Vol] 3825 pg/mL High <=1800 [facility] Comment on above: Result Comment: Hear t Failure Unlikely: < 300 pg/mL Heart Failure Likely < 50 Years: > 450 pg/mL 50-75 Years: > 900 pg/mL >75 Years: > 1800 pg/mL Performed By: #### M 300.4600, L400.0001, M300.4500 #### [facility] [address] [place], [place], [id number] Protein Test strip Ql (U)Ord ered By: Kristopher Diamond on 09-10-2024 Protein Ql (U) Negative Negative [facility] Prothrombin Time w/INRon INR Coag (PPP) [Relative time] 1.5 {INR} Normal [facility] Comment on above: Performed By: #### L 503.0106, L506.0200, L501.4021, L300.3900, L500.4100, L503.7505, L300.8000, L500.4050, L100.0100, L501.2300, L501.9520, L501.5200 #### [facility] [address] [place], [place], [id number] PT Coag (PPP) [Time] 18.7 s High 11.7-14.[address] [facility] Comment on above: Performed By: #### L 503.0106, L506.0200, L501.4021, L300.3900, L500.4100, L503.7505, L300.8000, L500.4050, L100.0100, L501.2300, L501.9520, L501.5200 #### [facility] [address] [place], [place], [id number] RBC Auto (Bld) [#/Vol]Ordere d By: Kristopher Diamond on 09-10-2024 RBC (Bld) [#/Vol] 4.61 10*6/uL 4.6-6.[address] [facility] RESPIRATORY PANEL MOLECULARo n 09-10-2024 RP PANEL Normal Reference Ran ge = Not Detected Resp path DNA+RNA Pnl Resp NIURKA+probe Nucleic acid amplification test method ADENOVIRUS Not Detected INFLUENZA A Not Detected INFLUENZA A (SUBTYPE H1) Not Detected INFLUENZA A (SUBTYPE H3) Not Detected INFLUENZA B Not Detected HUMAN METAPHNEUMO Not Detected PARAINFLUENZA 1 Not Detected PARAINFLUENZA 2 Not Detected PARAINFLUENZA 3 Not Detected PARAINFLUENZA 4 Not Detected RHINOVIRUS Not Detected RSV A Not Detected RSV B Not Detected Normal [facility] Comment on above: Performed By: #### M 300.4600, L400.0001, M300.4500 #### [facility] [address] [place], [address] Respiratory pathogens detect ion panel by molecular detection methodOrdered By: Kristopher Diamond on 09-10-2024 Respiratory pathogens DNA and RNA panel NIURKA+probe (Resp) [facility] Screening total cholesterol/ high density lipoprotein (HDL) cholesterol ratioOrdered By: Kristopher Diamond on 09-10-2024 Cholesterol.total/Choles terol in HDL [Mass ratio] 2.30 {ratio} [facility] Serum globulin measurementOr dered By: Kristopher Diamond on 09-10-2024 Globulin (S) [Mass/Vol] 3.9 g/dL 2.2-4.2 [facility] Serum or plasma alanine castillo otransferase (ALT) measurementOrdered By: Kristopher Diamond on 09-10-2024 ALT [Catalytic activity/Vol] 34 U/L <47 [facility] Serum or plasma albumin regan urement (mass/volume)Ordered By: Kristopher Diamond on 09-10-2024 Albumin [Mass/Vol] 3.7 g/dL 3.4-4.8 [facility] Serum or plasma albumin/glob ulin mass ratioOrdered By: Kristopher Diamond on 09-10-2024 Albumin/Globulin [Mass ratio] 0.9 {ratio} 0.9-2.4 [facility] Serum or plasma alkaline effie sphatase measurementOrdered By: Kristopher Diamond on 09-10-2024 ALP [Catalytic activity/Vol] 199 U/L High 40-129 [facility] Serum or plasma cholesterol in HDL measurement (mass/volume)Ordered By: Kristopher Diamond on 09-10-2024 Cholesterol in HDL [Mass/Vol] 37 mg/dL Low >40 [facility] Comment on above: National Cholesterol Education Program (NCEP) guidelines:<40 mg/dL: Low HDL-cholesterol (major risk factor for CHD)>= 60 mg/dL: High HDL-cholesterol (negative risk factor for CHD)HDL-cholesterol is affected by a number of factors, e.g. smoking, exercise, hormones, sex and age. Serum or plasma cholesterol measurement (mass/volume)Ordered By: Kristopher Diamond on 09-10-2024 Cholesterol [Mass/Vol] 85 mg/dL <201 [facility] Comment on above: Cholesterol level, D esirable <200 mg/dLBorderline high cholesterol 200-239 mg/dLHigh cholesterol >=240 mg/dLRecommendations of the NCEP Adult Treatment Panel for the following risk-cutoff thresholds for the [place] population. Squamous epithelial cells de tection in urine sediment by light microscopyOrdered By: Kristopher Diamond on 09-10-2024 Epithelial cells.squamous LM Ql (Urine sed) 0-5 SEEN /hpf 0-5 [facility] Strep pneumoniae Antig(UR,CS F)on 09-10-2024 STPAG Strep pneumoniae Antig(UR,CSF) Strep pneumoniae Antig(UR,CSF) [] Negative Urine Presumptive negative for pneumococcal pneumonia, suggesting no current or recent pneumococcal infection. Infection due to S pneumoniae cannot be ruled out since the antigen present in the sample may be below the detection limit of the test. Strep pneumo Test Negative URINE (See interpretation below) Normal [facility] Comment on above: Performed By: #### M 300.1250, L400.0001, M300.4500 #### [facility] [place], [address] TSH DL <= 0.005 mIU/L QnOrde red By: Kristopher Diamond on 09-10-2024 TSH Qn 0.518 uIU/mL 0.300-4.200 [facility] Thyroid Stim Hormone (TSH)on 09-10-2024 TSH 0.518 uIU/mL Normal 0.300-4.200 [facility] Comment on above: Performed By: #### M 300.4600, L400.0001, M300.4500 #### [facility] [address] [place], [address] Total proteinOrdered By: Peter Diamond on 09-10-2024 Protein [Mass/Vol] 7.6 g/dL 5.9-8.4 [facility] Triglycerides measurementOrd ered By: Kristopher Diamond on 09-10-2024 Triglyceride [Mass/Vol] 42 mg/dL <199 [facility] Comment on above: The drugs N-Acetylcy steine and Metamizole may falsely depress this assay. Normal range: <150 mg/dLBorderline High: 150-199 mg/dLHigh: 200-499 mg/dLVery High: >500 mg/dL Troponin T HS 2 HRon 025 Trop T High Sen 7 ng/L Normal <=22 [facility] Comment on above: Performed By: #### M 300.4600, L400.0001, M300.4500 #### [facility] [address] [place], [address] Troponin T HS 4 HRon 025 Trop T High Sen 6 ng/L Normal <=22 [facility] Comment on above: Performed By: #### L 499.0043 #### [facility] [address] [place], [address] Troponin T.cardiac [Mass/vol ume] in Serum or Plasma by High sensitivity methodOrdered By: Kristopher Diamond on 09-10-2024 Troponin T.cardiac High sensitivity method [Mass/Vol] 6 ng/L <22 [facility] Troponin T.cardiac High sensitivity method [Mass/Vol] 7 ng/L <22 [facility] Troponin T.cardiac High sensitivity method [Mass/Vol] 8 ng/L <22 [facility] Urinalysis, Completeon 09-10 BACTERIA 1+ /hpf Normal None Seen [facility] Comment on above: Order Comment: Urine , Random Performed By: #### M 300.4600, L400.0001, M300.4500 #### [facility] [address] [place], [address] EPI,SQUAMOUS 0-5 SEEN Normal 0-5 [facility] Comment on above: Order Comment: Urine , Random Performed By: #### M 300.4600, L400.0001, M300.4500 #### [facility] [address] [place], [address] RBC 0-5 SEEN Normal 0-5 [facility] Comment on above: Order Comment: Urine , Random Performed By: #### M 300.4600, L400.0001, M300.4500 #### [facility] [address] [place], [address] BILIRUBIN URINE Negative Normal Negative [facility] Comment on above: Order Comment: Urine , Random Performed By: #### M 300.4600, L400.0001, M300.4500 #### [facility] [address] [place], [address] Clarity (U) Clear Normal Clear [facility] Comment on above: Order Comment: Urine , Random Performed By: #### M 300.4600, L400.0001, M300.4500 #### [facility] [address] [place], [address] Color (U) Yellow Normal Yellow [facility] Comment on above: Order Comment: Urine , Random Performed By: #### M 300.4600, L400.0001, M300.4500 #### [facility] [address] [place], [address] GLUCOSE, UR Normal Normal Normal [facility] Comment on above: Order Comment: Urine , Random Performed By: #### M 300.4600, L400.0001, M300.4500 #### [facility] [address] [place], [address] KETONE UR Negative Normal Negative [facility] Comment on above: Order Comment: Urine , Random Performed By: #### M 300.4600, L400.0001, M300.4500 #### [facility] [address] [place], [address] LEUK ESTERASE Negative Normal Negative [facility] Comment on above: Order Comment: Urine , Random Performed By: #### M 300.4600, L400.0001, M300.4500 #### [facility] [address] [place], [address] Nitrite Ql (U) Negative Normal Negative [facility] Comment on above: Order Comment: Urine , Random Performed By: #### M 300.4600, L400.0001, M300.4500 #### [facility] [address] [place], [address] OCCULT BLOOD-UR 10 /ul Abnormal Negative [facility] Comment on above: Order Comment: Urine , Random Performed By: #### M 300.4600, L400.0001, M300.4500 #### [facility] [address] [place], [address] pH UR 6.0 Normal 5.0 - 8.0 [facility] Comment on above: Order Comment: Urine , Random Performed By: #### M 300.4600, L400.0001, M300.4500 #### [facility] [address] [place], [address] PROT DIPSTX Negative Normal Negative [facility] Comment on above: Order Comment: Urine , Random Performed By: #### M 300.4600, L400.0001, M300.4500 #### [facility] [address] [place], [address] SP.GR. DIPSTX 1.010 Normal 1.002-1.030 [facility] Comment on above: Order Comment: Urine , Random Performed By: #### M 300.4600, L400.0001, M300.4500 #### [facility] [address] [place], [address] UROBILI Normal Normal Normal [facility] Comment on above: Order Comment: Urine , Random Performed By: #### M 300.4600, L400.0001, M300.4500 #### [facility] [address] [place], [address] Mucus Ql (Urine sed) 0 SEEN Normal [facility] Comment on above: Order Comment: Urine , Random Performed By: #### M 300.4600, L400.0001, M300.4500 #### [facility] [address] [place], [address] WBC 0 SEEN Normal 0-5 [facility] Comment on above: Order Comment: Urine , Random Performed By: #### M 300.4600, L400.0001, M300.4500 #### [facility] [address] [place], [address] Urine Legionella pneumophila antigen detectionOrdered By: Kristopher Diamond on 09-10-2024 L. pneumophila Ag Ql (U) [facility] Urine clarityOrdered By: Peter Diamond on 09-10-2024 Clarity (U) Clear Clear [facility] Urine color determinationOrd ered By: Kristopher Diamond on 09-10-2024 Color (U) Yellow Yellow [facility] Urine glucose detectionOrder ed By: Kristopher Diamond on 09-10-2024 Glucose Ql (U) Normal mg/dl Normal [facility] Urine leukocyte esterase det ection by dipstickOrdered By: Kristopher Diamond on 09-10-2024 Leukocyte esterase Test strip Ql (U) Negative Negative [facility] Urine pHOrdered By: Kristopher kaufman on 09-10-2024 pH (U) 6.0 [pH] 5.0 - 8.0 [facility] Urine sediment bacteria coun t by microscopy (number/high power field)Ordered By: Kristopher Diamond on 09-10-2024 Bacteria LM.HPF (Urine sed) [#/Area] 1 /[HPF] None Seen [facility] Urine specific gravity measu rementOrdered By: Kristopher Diamond on 09-10-2024 Specific gravity (U) [Rel density] 1.010 1.002-1.030 [facility] Urine urobilinogen measureme ntOrdered By: Kristopher Diamond on 09-10-2024 Urobilinogen Ql (U) Normal mg/dl Normal [facility] Venous Blood Gason Blood Gas Type ARIEL Normal [facility] Comment on above: Performed By: #### L 9000.0810 #### [facility] [address] [place], [address] CO2 [Moles/Vol] 37 mmol/L High 23-33 [facility] Comment on above: Performed By: #### L 9000.0810 #### [facility] [address] [place], [address] FI02 3.0 Normal [facility] Comment on above: Performed By: #### L 9000.0810 #### [facility] [address] [place], [address] HCO3 (Bld) [Moles/Vol] 35 mmol/L High 22-26 [facility] Comment on above: Performed By: #### L 9000.0810 #### [facility] [address] [place], [address] O2 Delivery Dev Cannula Normal [facility] Comment on above: Performed By: #### L 9000.0810 #### [facility] [address] [place], [address] SITE Not entered Normal [facility] Comment on above: Performed By: #### L 9000.0810 #### [facility] [address] [place], [address] VBG BE 10 mmol/L High -1.0-3.5 [facility] Comment on above: Performed By: #### L 9000.0810 #### [facility] [address] [place], [address] VBG pCO2 54.8 mmHg High 41-51 [facility] Comment on above: Performed By: #### L 9000.0810 #### [facility] [address] [place], [address] VBG pH 7.41 Normal 7.32-7.42 [facility] Comment on above: Performed By: #### L 9000.0810 #### [facility] [address] [place], [address] VBG PO2 68 mmHg High 25-40 [facility] Comment on above: Performed By: #### L 9000.0810 #### [facility] [address] [place], [address] VBG SO2 93 High 50-70 [facility] Comment on above: Performed By: #### L 9000.0810 #### [facility] [address] [place], [address] Venous blood base excess rodolfo surementOrdered By: Kristopher Daimond on 09-10-2024 Base excess Calc (BldV) [Moles/Vol] 10 mmol/L High -1.0-3.5 [facility] Venous blood bicarbonate rodolfo surementOrdered By: Kristopher Diamond on 09-10-2024 HCO3 (Bld) [Moles/Vol] 35 mmol/L High 22-26 [facility] Venous blood oxygen saturati on measurementOrdered By: Kristopher Diamond on 09-10-2024 Oxygen saturation in Blood 93 % High 50-70 [facility] Venous blood pH measurementO rdered By: Kristopher Diamond on 09-10-2024 pH (BldV) 7.41 [pH] 7.32-7.42 [facility] Venous blood partial pressur e of carbon dioxide measurementOrdered By: Kristopher Diamond on 09-10-2024 CO2 (BldV) [Partial pressure] 54.8 mm[Hg] High 41-51 [facility] Venous blood partial pressur e of oxygen measurementOrdered By: Kristopher Diamond on 09-10-2024 Oxygen (BldV) [Partial pressure] 68 mm[Hg] High 25-40 [facility] Vitamin B12on 09-10-2024 Cobalamin (Vitamin B12) [Mass/Vol] 515 pg/mL Normal 180-914 [facility] Comment on above: Performed By: #### M 300.4600, L400.0001, M300.4500 #### [facility] [address] [place], [place] [address], [address] Vitamin B12 ser/plasOrdered By: Kristopher Diamond on 09-10-2024 Cobalamin (Vitamin B12) [Mass/Vol] 515 pg/mL 180-914 [facility] White blood cell (WBC) count Ordered By: Kristopher Diamond on 09-10-2024 WBC (Bld) [#/Vol] 10.8 10*3/uL 4.4-11.[address] [facility] White blood cell countOrdere d By: Kristopher Diamond on 09-10-2024 White blood cell count 0 SEEN /hpf 0-5 [facility] ALLIED HEALTHon 09-09-2024 ALLIED HEALTH HNO ID: [id number] Author: AGNES BRIZUELA RT(Lillie) Service: ? Author Type: Technologist Type: Allied Health Filed: 09/09/2024 19:49 Note Text: Radiology Service Progress Note PATIENT NAME: Arturo Pedersen DATE OF SERVICE: September 09, 2024 TIME: 7:49 PM PATIENT IDENTITY VERIFICATION COMPLETED USING TWO (2) IDENTIFIERS: Name and Date of confirmed by patient verbally. FALL SCREENING: Has the patient had 2 falls in the last year or 1 fall with injury or currently using an Ambulatory Assistive Device (Walker, Cane, Wheelchair, Crutches, etc.)? No PATIENT GENDER DATA: Assigned male at PATIENT RELEVANT IMPLANT DATA REVIEWED: Not Applicable PATIENT PRESENTS WITH AN IMPLANTABLE OR ATTACHED LOGISTICS TEAM LEAD: No RADIOLOGY DEPARTMENT: General X-ray: Exam(s) Completed: Chest X-Ray PERIPHERAL IV DATA: Not applicable SIGNED BY: Agnes Brizuela, RT(R) September 09, 2024 7:49 PM Normal [facility] CBC W Auto Differential pane l (Bld)on 09-09-2024 Basophils (Bld) [#/Vol] 0.03 10*3/uL Normal <0.11 [facility] Comment on above: Order Comment: Speci men Type: BLOOD SPECIMENOrdering Facility: [facility] Address: [address] [place] [address] Performed By: #### 5 7021-8 ####[facility] LABCLIA [id number] [place] [id number] [place] Basophils/100 WBC (Bld) 0.3 % Normal [facility] Comment on above: Order Comment: Speci men Type: BLOOD SPECIMENOrdering Facility: [facility] Address: [address] [place] [address] Performed By: #### 5 7021-8 ####[facility] LABCLIA [id number] [place] [address] [place] Differential cell count method Nom (Bld) Auto Normal [facility] Comment on above: Order Comment: Speci men Type: BLOOD SPECIMENOrdering Facility: [facility] Address: [address] [place] [address] Performed By: #### 5 7021-8 ####[facility] LABCLIA [id number] [place] [address] [place] Eosinophils (Bld) [#/Vol] 0.08 10*3/uL Normal <0.46 [facility] Comment on above: Order Comment: Speci men Type: BLOOD SPECIMENOrdering Facility: [facility] Address: [address] [place] [address] Performed By: #### 5 7021-8 ####[facility] LABCLIA [id number] [facility] [place] [address] [place] Eosinophils/100 WBC (Bld) 0.8 % Normal [facility] Comment on above: Order Comment: Speci men Type: BLOOD SPECIMENOrdering Facility: [facility] Address: [address] [place] [address] Performed By: #### 5 7021-8 ####[facility] LABCLIA [id number] [facility] [place] [address] [place] Erythrocyte distribution width (RBC) [Ratio] 13.2 % Normal 11.5-15.0 [facility] Comment on above: Order Comment: Speci men Type: BLOOD SPECIMENOrdering Facility: [facility] Address: [address] [place] [address] Performed By: #### 5 7021-8 ####[facility] LABCLIA [id number] [place] [address] [facility] Hematocrit (Bld) [Volume fraction] 43.0 % Normal 39.0-51.0 [facility] Comment on above: Order Comment: Speci men Type: BLOOD SPECIMENOrdering Facility: [facility] Address: [address] [place] [address] Performed By: #### 5 7021-8 ####[facility] LABCLIA [id number] [place] [address] [place] Hemoglobin (Bld) [Mass/Vol] 13.4 g/dL Normal 13.0-17.0 [facility] Comment on above: Order Comment: Speci men Type: BLOOD SPECIMENOrdering Facility: [facility] Address: [address] [place] [address] Performed By: #### 5 7021-8 ####[facility] LABCLIA [id number] [facility] [place] [address] [place] Immature granulocytes (Bld) [#/Vol] 0.03 10*3/uL Normal <0.10 [facility] Comment on above: Order Comment: Speci men Type: BLOOD SPECIMENOrdering Facility: [facility] Address: [address] [place] [address] Performed By: #### 5 7021-8 ####[facility] LABCLIA [id number] [place] [address] [facility] Immature granulocytes/100 WBC (Bld) 0.3 % Normal [facility] Comment on above: Order Comment: Speci men Type: BLOOD SPECIMENOrdering Facility: [facility] Address: [address] [place] [address] Performed By: #### 5 7021-8 ####[facility] LABCLIA [id number] [place] [address] [place] [facility] Lymphocytes (Bld) [#/Vol] 0.65 10*3/uL Low 1.00-4.00 [facility] Comment on above: Order Comment: Speci men Type: BLOOD SPECIMENOrdering Facility: [facility] Address: [address] [place] [address] Performed By: #### 5 7021-8 ####[facility] LABCLIA [id number] [address] Lymphocytes/100 WBC (Bld) 6.3 % Normal [facility] Comment on above: Order Comment: Speci men Type: BLOOD SPECIMENOrdering Facility: [facility] Address: [address] [place] [address] Performed By: #### 5 7021-8 ####[facility] LABCLIA [id number] [place] [address] [place] MCH (RBC) [Entitic mass] 30.7 pg Normal 26.0-34.0 [facility] Comment on above: Order Comment: Speci men Type: BLOOD SPECIMENOrdering Facility: [facility] Address: [address] [place] [address] Performed By: #### 5 7021-8 ####[facility] LABCLIA [id number] [facility] [place] [address] [place] MCHC (RBC) [Mass/Vol] 31.2 g/dL Normal 30.5-36.0 [facility] Comment on above: Order Comment: Speci men Type: BLOOD SPECIMENOrdering Facility: [facility] Address: [address] [place] [address] Performed By: #### 5 7021-8 ####[facility] [place] LABCLIA [id number] [place] [address] [facility] MCV (RBC) [Entitic vol] 98.4 fL Normal 80.0-100.0 A [facility] Comment on above: Order Comment: Speci men Type: BLOOD SPECIMENOrdering Facility: [facility] Address: [address] [place] [address] Performed By: #### 5 7021-8 ####[facility] [id number] [place] [address] [place] Monocytes (Bld) [#/Vol] 0.94 10*3/uL High <0.87 [facility] Comment on above: Order Comment: Speci men Type: BLOOD SPECIMENOrdering Facility: [facility] Address: [address] [place] [address] Performed By: #### 5 7021-8 ####[facility] [place] LABCLIA [id number] [place] [address] [facility] Monocytes/100 WBC (Bld) 9.1 % Normal A [facility] Comment on above: Order Comment: Speci men Type: BLOOD SPECIMENOrdering Facility: [facility] Address: [address] [place] [address] Performed By: #### 5 7021-8 ####[facility] [place] LABCLIA [id number] [place] [address] [facility] [place] Neutrophils (Bld) [#/Vol] 8.55 10*3/uL High 1.45-7.50 [facility] Comment on above: Order Comment: Speci men Type: BLOOD SPECIMENOrdering Facility: [facility] Address: [address] [place] [address] Performed By: #### 5 7021-8 ####[facility] [place] LABCLIA [id number] [place] [address] [place] Neutrophils/100 WBC (Bld) 83.2 % Normal [facility] Comment on above: Order Comment: Speci men Type: BLOOD SPECIMENOrdering Facility: [facility] Address: [address] [place] [address] Performed By: #### 5 7021-8 ####[facility] [place] LABCLIA [id number] [place] [address] [place] Nucleated RBC (Bld) [#/Vol] Normal [facility] Comment on above: Order Comment: Speci men Type: BLOOD SPECIMENOrdering Facility: [facility] Address: [address] [place] [address] Performed By: #### 5 7021-8 ####[facility] [place] LABCLIA [id number] [place] [address] [place] Nucleated RBC/100 WBC (Bld) [Ratio] Normal [facility] Comment on above: Order Comment: Speci men Type: BLOOD SPECIMENOrdering Facility: [facility] Address: [address] [place] [address] Performed By: #### 5 7021-8 ####[facility] [place] LABCLIA [id number] [place] [address] [place] Platelet mean volume (Bld) [Entitic vol] 9.4 fL Normal 9.0-12.7 [facility] Comment on above: Order Comment: Speci men Type: BLOOD SPECIMENOrdering Facility: [facility] Address: [address] [place] [address] Performed By: #### 5 7021-8 ####[facility] [place] LABCLIA [id number] [place] [address] [place] Platelets (Bld) [#/Vol] 219 10*3/uL Normal 150-400 [facility] Comment on above: Order Comment: Speci men Type: BLOOD SPECIMENOrdering Facility: [facility] Address: [address] [place] [address] Performed By: #### 5 7021-8 ####[facility] LABCLIA [id number] [place] [address] [place] RBC (Bld) [#/Vol] 4.37 10*6/uL Normal 4.20-6.00 [facility] Comment on above: Order Comment: Speci men Type: BLOOD SPECIMENOrdering Facility: [facility] Address: [address] [place] [address] Performed By: #### 5 7021-8 ####[facility] LABCLIA [id number] [place] [address] [facility] WBC (Bld) [#/Vol] 10.28 10*3/uL Normal 3.70-11.00 [facility] Comment on above: Order Comment: Speci men Type: BLOOD SPECIMENOrdering Facility: [facility] Address: [address] [place] [address] Performed By: #### 5 7021-8 ####[facility] LABCLIA [id number] [place] [address] [facility] Comprehensive metabolic 2000 panelon 09-09-2024 Albumin [Mass/Vol] 3.4 g/dL Low 3.9-4.9 [facility] Comment on above: Order Comment: Speci men Type: BLOOD SPECIMEN Ordering Facility: [facility] Address: [address] [place] [address] Performed By: #### 1 9123-9, 04619-8, 94488-1 #### [facility] [place] [facility] CLIA [id number] [address] [place] [address] [facility] ALP [Catalytic activity/Vol] 182 U/L High 38-113 [facility] Comment on above: Order Comment: Speci men Type: BLOOD SPECIMEN Ordering Facility: [facility] Address: [address] [place] [address] Performed By: #### 1 9123-9, 18896-2, 61301-5 #### [facility] [place] [facility] CLIA [id number] [address] [place] [address] [place] ALT With P-5'-P [Catalytic activity/Vol] 26 U/L Normal 10-54 [facility] Comment on above: Order Comment: Speci men Type: BLOOD SPECIMEN Ordering Facility: [facility] Address: [address] [place] [address] Performed By: #### 1 9123-9, 18904-2, 90216-5 #### [facility] [place] [facility] CLIA [id number] [address] [place] [address] [place] Anion gap [Moles/Vol] 10 mmol/L Normal 8-15 [facility] Comment on above: Order Comment: Speci men Type: BLOOD SPECIMEN Ordering Facility: [facility] Address: [address] [place] [address] Performed By: #### 1 9123-9, 68224-1, 34993-8 #### [facility] [place] [facility] CLIA [id number] [address] [place] [address] [facility] [place] AST With P-5'-P [Catalytic activity/Vol] 32 U/L Normal 14-40 [facility] Comment on above: Order Comment: Speci men Type: BLOOD SPECIMEN Ordering Facility: [facility] Address: [address] [place] [address] Performed By: #### 1 9123-9, 49212-6, 35950-4 #### [facility] [place] [facility] CLIA [id number] [address] [place] [address] [place] Bilirubin [Mass/Vol] 0.8 mg/dL Normal 0.2-1.3 [facility] Comment on above: Order Comment: Speci men Type: BLOOD SPECIMEN Ordering Facility: [facility] Address: [address] [place] [address] Performed By: #### 1 9123-9, 87424-3, 61609-2 #### [facility] [place] [facility] CLIA [id number] [address] [place] [address] [place] Calcium [Mass/Vol] 8.7 mg/dL Normal 8.5-10.2 [facility] Comment on above: Order Comment: Speci men Type: BLOOD SPECIMEN Ordering Facility: [facility] Address: [address] [place] [address] Performed By: #### 1 9123-9, 04738-0, 78760-3 #### [facility] [place] [facility] CLIA [id number] [address] [place] [address] [place] Chloride [Moles/Vol] 100 mmol/L Normal 98-107 [facility] Comment on above: Order Comment: Speci men Type: BLOOD SPECIMEN Ordering Facility: [facility] Address: [address] [place] [address] Performed By: #### 1 9123-9, 15407-4, 99151-5 #### [facility] [place] [facility] CLIA [id number] [address] [place] [address] [place] CO2 [Moles/Vol] 29 mmol/L Normal 22-30 [facility] Comment on above: Order Comment: Speci men Type: BLOOD SPECIMEN Ordering Facility: [facility] Address: [address] [place] [address] Performed By: #### 1 9123-9, 07427-7, 87816-0 #### [facility] [place] [facility] CLIA [id number] [address] [place] [address] [place] Creatinine [Mass/Vol] 0.70 mg/dL Low 0.73-1.22 [facility] Comment on above: Order Comment: Speci men Type: BLOOD SPECIMEN Ordering Facility: [facility] Address: [address] [place] [address] Performed By: #### 1 9123-9, 26727-3, 15233-9 #### [facility] [place] [facility] CLIA [id number] [address] [place] [address] [place] eGFRcr SerPlBld CKD-EPI 2020 91 mL/min/1.73m??? Normal >=60 [facility] Comment on above: Order Comment: Kika bryant Type: BLOOD SPECIMEN Ordering Facility: [facility] Address: [address] [place] [address] Result Comment: Calista mated Glomerular Filtration Rate [...] accurately reflect actual GFR. Performed By: #### 1 9123-9, 58922-7, 71854-6 #### [facility] CLIA [id number] [address] [place] [address] [place] Glucose [Mass/Vol] 156 mg/dL High 74-99 [facility] Comment on above: Order Comment: Kika bryant Type: BLOOD SPECIMEN Ordering Facility: [facility] Address: [address] [place] [address] Result Comment: The [place] [employer] (ADA) provides guidance for cutoff [...] Standards of Medical Care in Diabetes 2016, [place] [employer]. Diabetes Care. 2016.39(Suppl 1). Performed By: #### 1 9123-9, 67251-7, 86125-4 #### [facility] CLIA [id number] [address] [place] [address] [place] Potassium [Moles/Vol] 3.8 mmol/L Normal 3.7-5.1 [facility] Comment on above: Order Comment: Speci men Type: BLOOD SPECIMEN Ordering Facility: [facility] Address: [address] [place] [address] Performed By: #### 1 9123-9, 38657-9, 99369-6 #### [facility] [place] [facility] CLIA [id number] [address] [place] [address] [place] Protein [Mass/Vol] 7.1 g/dL Normal 6.3-8.0 [facility] Comment on above: Order Comment: Speci men Type: BLOOD SPECIMEN Ordering Facility: [facility] Address: [address] [place] [address] Performed By: #### 1 9123-9, 58501-4, 95512-7 #### [facility] [place] [facility] CLIA [id number] [address] [place] [address] [place] Sodium [Moles/Vol] 139 mmol/L Normal 136-144 [facility] Comment on above: Order Comment: Speci men Type: BLOOD SPECIMEN Ordering Facility: [facility] Address: [address] [place] [address] Performed By: #### 1 9123-9, 09244-5, 78695-9 #### [facility] [place] [facility] CLIA [id number] [address] [place] [address] [place] Urea nitrogen [Mass/Vol] 22 mg/dL Normal 9-24 [facility] Comment on above: Order Comment: Speci men Type: BLOOD SPECIMEN Ordering Facility: [facility] Address: [address] [place] [address] Performed By: #### 1 9123-9, 76352-8, 77023-7 #### [facility] [place] [facility] CLIA [id number] [address] [place] [address] [place] ECG COMPLETEon 09-09-2024 ECG COMPLETE Ventricular Rate : 1 19 BPM QRS Duration : 70 ms Q-T Interval : 318 ms QTC Calculation(Bazett) : 447 ms Calculated R [place] : 31 degrees Calculated T [place] : 59 degrees ATRIAL FIBRILLATION WITH RAPID VENTRICULAR RESPONSE NONSPECIFIC T WAVE ABNORMALITY ABNORMAL ECG NO PREVIOUS ECGS AVAILABLE Confirmed by MD MEADE VINAYAK ([id number]) on 09/13/2024 8:25:28 AM NAME : ARTURO PEDERSEN PID : [id number] : 1940 Gender : Male Race : ORD : [id number] Procedure Date : Sep 09 2024 18:51:28 Edit Date : Sep 13 2024 08:25:32 Diagnosis: ATRIAL FIBRILLATION WITH RAPID VENTRICULAR RESPONSE NONSPECIFIC T WAVE ABNORMALITY ABNORMAL ECG NO PREVIOUS ECGS AVAILABLE Confirmed by MD MEADE VINAYAK ([id number]) on 09/13/2024 8:25:28 AM Test Reason : Chest Pain Location : 191 : [facility] ED Overread By : MD MEADE VINAYAK Edited By : MD MEADE VINAYAK Referred By : , Acquired by : NINI MARTINEZ [facility] ED NOTEon 09-09-2024 ED NOTE HNO ID: [id number] Author: ANICETO VELAZQUEZ, FREIDA Service: Emergency Medicine Author Type: Registered Nurse Type: ED Notes Filed: 09/09/2024 23:36 Note Text: [facility] here for transport. Report given and care transferred [facility] ED NOTE HNO ID: [id number] Author: ANT LAYTON RN Service: Emergency Medicine Author Type: Registered Nurse Type: ED Notes Filed: 09/09/2024 22:48 Note Text: Accepted Dr Salazar [facility] bed 117 NTN [phone] ETA 60m [facility] ED NOTE HNO ID: [id number] Author: ANT LAYTON, FREIDA Service: Emergency Medicine Author Type: Registered Nurse Type: ED Notes Filed: 09/09/2024 21:28 Note Text: Family requesting admission to [facility] d/t patient [facility] PCP and h/o cardiac stents placed at [facility]. Call placed to [facility] nursing network control supervisor [phone], will forward info to hospitalist. Advised that hospitalist has several admissions pending and there will be a delay in acceptance and transfer if accepted. [facility] ED NOTE HNO ID: [id number] Author: DAINA SAMPSON RN Service: ? Author Type: Registered Nurse Type: ED Notes Filed: 09/09/2024 18:54 Note Text: Pt arrives after calling EMS for chest tightness which is resolved upon arrival. Pt reports chest tightness started 2 days ago. Pt reports Shortness of Breath has been worsening recently. Pt has strong productive cough with brown-yellow sputum. Pt wears 02-2.5LNC Normal [facility] ED PROV NOTEon 09-09-2024 ED PROV NOTE HNO ID: [id number] Author: ARTURO NG MD Service: Emergency Medicine Author Type: Physician Type: ED Provider Notes Filed: 09/09/2024 22:40 Note Text: ED Provider Note Patient Name: Arturo Pedersen : 1940 SERVICE DATE: 09/09/24 History Patient presents with: Chest Pain Arturo Pedersen is a 83 year old male with history of coronary artery disease and chronic atrial fibrillation who presents with Chest Pain. Patient took nothing for this prior to arrival. - Symptoms began 2 days prior to arrival. - Severity: moderate - Timing: constant - Quality: Cough congestion increased difficulty breathing intermittent chest pain and generalized malaise - Chest Pain is exacerbated by deep breath. - Chest Pain is not exacerbated by palpation. - Symptoms are associated with shortness of breath and URI symptoms. - Symptoms are not associated with nausea and vomiting. - Improved by nothing. - Not improved by rest Patient lives at home he does have a caregiver he said history of stroke coronary disease chronic atrial fibrillation had stents placed in 2021 by cardiology at [facility]. Past couple of days he has not been feeling well caregiver reports he has had a productive cough of some brownish sputum he has been visibly more short of breath. Previous history of pneumonia that is felt similar. He also has described some chest pains he describes he is his bilateral they do seem to be pleuritic. He cannot recall what his chest pain felt like when he got his stent placed. PAST MEDICAL HISTORY Diagnosis Date - Atrial fibrillation (HCC) - CABG - CAD (coronary artery disease) CABG, stent - Central apnea - CVA (cerebral infarction) 04/16/2014 - Depression - GERD (gastroesophageal reflux disease) - Neuropathy - Other and unspecified hyperlipidemia - Prostate cancer (HCC) - Unspecified essential hypertension PAST SURGICAL HISTORY Procedure Laterality Date - ARTHRP ACETBLR/PROX FEM PROSTC AGRFT/ALGRFT - CABG (2) VEIN GRAFTS AND ARTERIAL GRAFT(S 1993 - PAST SURGICAL HISTORY OF 07/24/2018 removal of hardware, left thr - PCI/STENT 12/2021 2 stents - radiation for prostate cancer - TREAT HIP FRACTURE(S) Left 11/2017 hip screw placed [facility] FAMILY HISTORY Problem Relation Age of Onset - Heart Father - Prostate Cancer Father - Alzheimer's Disease Mother Social History Tobacco Use - Smoking status: Former Current packs/day: 0.00 Average packs/day: 2.0 packs/day for 25.0 years (50.0 ttl pk-yrs) Types: Cigarettes Start date: 10/17/1967 Quit date: 10/16/1992 Years since quittin.9 - Smokeless tobacco: Never Vaping Use - Vaping status: Never Used Substance and Sexual Activity - Alcohol use: No - Drug use: No - Sexual activity: Not on file ALLERGIES Allergen Reactions - Aspirin Unknown - Oxycodone Other: See Comments - Percodan [Oxycodone* Mental Status Change Review of Systems Constitutional: Positive for fatigue. Negative for chills and fever. HENT: Negative for congestion and sore throat. Respiratory: Positive for cough and shortness of breath. Cardiovascular: Positive for chest pain. Negative for palpitations and leg swelling. Gastrointestinal: Negative for abdominal pain, diarrhea, nausea and vomiting. Musculoskeletal: Negative for back pain and neck pain. Allergic/Immunologic: Negative for environmental allergies, food allergies and immunocompromised state. Neurological: Negative for syncope and light-headedness. Psychiatric/Behavioral: Negative for confusion. The patient is nervous/anxious. Caregiver reports recently he has been having a lot of anxiety attacks. Physical Exam Vitals [09/09/24 1846] BP Pulse Temp Temp src Resp SpO2 Weight Height 136/73 (!) 116 37.2 ?C (98.9 ?F) Temporal (!) 25 (!) 94 % 95 kg (209 lb 8 oz) 1.778 m (5' 10) Physical Exam Vitals and nursing note reviewed. Constitutional: General: He is not in acute distress. Appearance: He is well-developed. He is ill-appearing. He is not toxic-appearing or diaphoretic. HENT: Head: Normocephalic and atraumatic. Neck: Vascular: No JVD. Cardiovascular: Rate and Rhythm: Normal rate. Rhythm irregular. Pulses: Radial pulses are 1+ on the right side and 1+ on the left side. Heart sounds: Normal heart sounds. Pulmonary: Effort: Tachypnea present. No accessory muscle usage or respiratory distress. Breath sounds: Examination of the right-lower field reveals rhonchi. Examination of the left-lower field reveals rhonchi. Rhonchi present. No wheezing. Comments: Mild increased work of breathing. Abdominal: Palpations: Abdomen is soft. Tenderness: There is no abdominal tenderness. Musculoskeletal: Right lower leg: No tenderness. Edema present. Left lower leg: No tenderness. Edema present. Skin: General: Skin is warm and dry. Capillary Refill: Capillary refill takes less than 2 seconds. Findings: No rash. Neuro (more content not included)... Normal [facility] HIGH SENSITIVITY TROPONIN T (INITIAL)on 09-09-2024 Troponin T.cardiac High sensitivity method [Mass/Vol] 10 ng/L Normal <12 [facility] Comment on above: Order Comment: Kika bryant Type: BLOOD SPECIMEN Ordering Facility: [facility] Address: [address] [place] [address] Performed By: #### L [id number] #### [facility] CLIA [id number] [address] [place] [address] [place] HIGH SENSITIVITY TROPONIN T (SECOND)on 09-09-2024 Troponin T.cardiac High sensitivity method [Mass/Vol] 10 ng/L Normal <12 [facility] Comment on above: Order Comment: Kika bryant Type: BLOOD SPECIMENOrdering Facility: [facility] Address: [address] [place] [address] Performed By: #### L [id number] ####[facility]IA [id number] [place] [address] [place] Magnesium SerPl-mCncon 09-09 Magnesium [Mass/Vol] 2.0 mg/dL Normal 1.7-2.3 [facility] Comment on above: Order Comment: Kika bryant Type: BLOOD SPECIMEN Ordering Facility: [facility] Address: [address] [place] [address] Performed By: #### 1 9123-9, 98911-6, 54011-9 #### [facility] CLIA [id number] [address] [place] [address] [facility] NT-proBNP [facility] 09-09 Natriuretic peptide.B prohormone N-Terminal [Mass/Vol] 2490 pg/mL High <450 [facility] Comment on above: Order Comment: Kika annette Type: BLOOD SPECIMEN Ordering Facility: [facility] Address: [address] [place] [address] Performed By: #### 1 9123-9, 61820-1, 10350-0 #### [facility] CLIA [id number] [address] [place] [address] [facility] PT panel Coag (PPP)on 2024 INR Coag (PPP) [Relative time] 1.4 {INR} High 0.9-1.3 [facility] Comment on above: Order Comment: Kika bryant Type: BLOOD SPECIMENOrdering Facility: [facility] Address: [address] [place] [address] Result Comment: Marilee min K Antagonist (VKA) Therapeutic Range: INR 2 to 3 (Target INR of 2.5) Note: For patients treated with VKA drugs, such as warfarin, the [place] [employer] 2012 Guideline recommends [...] Chest 2012, 141:7S-47S Alvino RA et al. [facility] 2017, 70: 252-289 Performed By: #### 3 4528-0 ####[facility] [id number] [place] [address] [place] PT Coag (PPP) [Time] 14.9 s High <13.1 [facility] Comment on above: Order Comment: Speci men Type: BLOOD SPECIMENOrdering Facility: [facility] Address: [place] [address] Performed By: #### 3 4528-0 ####[facility] [place] [facility] [id number] [place] [address] [facility] XR CHEST 1V FRONTALon 2024 XR CHEST 1V FRONTAL * * *Final Report* * * DATE OF EXAM: Sep 09 2024 7:48PM LDX 5290 - XR CHEST 1V FRONTAL / PROCEDURE REASON: Shortness of breath * * * * Physician Interpretation * * * * EXAMINATION: CHEST RADIOGRAPH (SINGLE VIEW AP OR PA) CLINICAL HISTORY: Shortness of breath MQ: XC1_5 Comparison: Chest CT 03/27/2024 RESULT: See impression IMPRESSION: Lines, tubes, and devices: Median sternotomy wires and surgical clips are present. Cardiac monitoring leads are present overlying the patient. . Lungs and pleura: Persistent elevation of the right hemidiaphragm with adjacent atelectasis versus infiltrate. Left perihilar airspace opacity also present. No gross pneumothorax. Cardiomediastinal silhouette: Stable cardiomediastinal silhouette. Atherosclerotic calcifications of the thoracic aorta. Shell Trim Operator: FATOUMATA Transcribe Date/Time: Sep 09 2024 9:50P Dictated by : SAVANNA GORE MD This examination was interpreted and the report reviewed and electronically signed by: SAVANNA GORE MD on Sep 09 2024 9:51PM EST [id number] Normal [facility] CNCOon 09-05-2024 CNCO Letter Text Normal [facility] CNPNon 09-05-2024 CNPN Telephone (CAEPST) ARTURO PEDERSEN ([id number]) 1940 M Date Time Provider Department 09/05/24 SUDHA NOE During your visit today, we recorded the following information about you: Shwetha Kendrick 09/05/2024 4:33 PM Signed Lvm and letter Provider only at [facility] now Allergies As of Date: 09/05/2024 Noted [...] Anxiety [F41.9] 12/23/2021 Atherosclerotic heart disease of [place] coronar*10/19/2017 Cerebrovascular accident (CVA) (HCC) [I63.9] 12/23/2021 [...] Encounter Status:Closed by SHWETHA KENDRICK on 09/05/24 [facility] CNOVon 07-13-2024 CNOV Office Visit (FPWADS ) ARTURO PEDERSEN ([id number]) 1940 M Date Time Provider Department 07/13/24 4:20 PM PDADY ZAIDI During your visit today, we recorded the following information about you: Pulse Blood pressure 98/minute 125/76 Paddy Ziadi MD 07/13/2024 5:45 PM Signed Subjective Adrian Pedersen is an 83-year-old male with a history of anxiety, presenting with dyspnea, lower extremity edema, and anxiety attacks, accompanied by his caregiver, Hui Ray, who is providing additional history. Dyspnea atherosclerotic heart disease: Pending electophys eval in [place] in November. 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 Atherosclerosis of [place] coronary artery of [place] heart without angina pectoris (I25.10) - Referral to cardiology in [place] initiated for further evaluation and management. - [...] - Prescription sent to pharmacy. Recording using Purple software for draft documentation of the visit was discussed with the patient/authorized field representative; all questions welcomed and answered. Patient/authorized field representative agreed to proceed Paddy Zaidi MD [...] [E78.00] Idiopathic peripheral neuropathy [G60.9] Atherosclerosis of [place] coronary artery of [place] heart without angina pectoris [I25.10] Order(s):nitroglycerin sublingual (NITROQUICK) 0.3 mg SL tabletDissolve 1 tablet under the tongue every 5 minutes as needed.Disp: 25 tabletRfl: (more content not included)... Normal [facility] 07-13-2024 [facility] Telephone (TIAWS) ARTURO PEDERSEN ([id number]) 1940 M Date Time Provider Department 07/13/24 FLAVIA SMITH During your visit today, we recorded the following information about you: Flavia Smith, CASKET LINER.[facility] 07/13/2024 4:40 PM Signed Review of OSH CT with most recent CT does not show worsening of right hemidiaphragm. Left lower lobe nodule no longer seen. Atelectasis in LLL but no further concern for PNA. Needs to complete overnight oxygen testing. Edwina De León LPN 07/16/2024 9:23 AM Signed Fax to [facility] for overnight records. KELLY Baker Jennifer, MA 07/16/2024 11:51 AM Signed [facility] calls to report attempts made to connect [...] Anxiety [F41.9] 12/23/2021 Atherosclerotic heart disease of g[place] coronar*10/19/2017 Cerebrovascular accident (CVA) (HCC) [I63.9] 12/23/2021 [...] by CLICK, FLAVIA Brush on 07/13/[address] [facility] CBC panel Auto (Bld)on 06-29 Erythrocyte distribution width (RBC) [Ratio] 13.9 % Normal 11.5-15.[address] [facility] Comment on above: Order Comment: Speci men Type: BLOOD SPECIMENOrdering Facility: [facility] Address: [address] [place] [address] Performed By: #### 5 8410-2 ####[facility] [id number] [place] [address] [place] Hematocrit (Bld) [Volume fraction] 45.0 % Normal 39.0-51.[address] [facility] Comment on above: Order Comment: Speci men Type: BLOOD SPECIMENOrdering Facility: [facility] Address: [address] [place] [address] Performed By: #### 5 8410-2 ####[facility] [id number] [place] [address] [place] Hemoglobin (Bld) [Mass/Vol] 14.1 g/dL Normal 13.0-17.[address] [facility] Comment on above: Order Comment: Speci men Type: BLOOD SPECIMENOrdering Facility: [facility] Address: [address] [place] [address] Performed By: #### 5 8410-2 ####[facility] [id number] [place] [address] [place] MCH (RBC) [Entitic mass] 29.9 pg Normal 26.0-34.[address] [facility] Comment on above: Order Comment: Speci men Type: BLOOD SPECIMENOrdering Facility: [facility] Address: [address] [place] [address] Performed By: #### 5 8410-2 ####[facility] YANGMARIENVILLEKANDI [id number] [address] OF [place] MCHC (RBC) [Mass/Vol] 31.3 g/dL Normal 30.5-36.0 [facility] Comment on above: Order Comment: Speci men Type: BLOOD SPECIMENOrdering Facility: [facility] Address: [address] [place] [address] Performed By: #### 5 8410-2 ####[facility]ENTERKANDI [id number] [address] [place] MCV (RBC) [Entitic vol] 95.5 fL Normal 80.0-100.0 [facility] Comment on above: Order Comment: Speci men Type: BLOOD SPECIMENOrdering Facility: [facility] Address: [address] [place] [address] Performed By: #### 5 8410-2 ####[facility] CENTERKANDI [id number] [place] [address] [place] Nucleated RBC (Bld) [#/Vol] 10*3/uL Normal <0.[address] [facility] Comment on above: Order Comment: Speci men Type: BLOOD SPECIMENOrdering Facility: [facility] Address: [address] [place] [address] Performed By: #### 5 8410-2 ####[facility]ENTERNCLIA [id number] [place] [address] [place] Platelet mean volume (Bld) [Entitic vol] 9.9 fL Normal 9.0-12.[address] [facility] Comment on above: Order Comment: Speci men Type: BLOOD SPECIMENOrdering Facility: [facility] Address: [address] [place] [address] Performed By: #### 5 8410-2 ####[facility]ENTERNCLIA [id number] [place] [address] [place] Platelets (Bld) [#/Vol] 164 10*3/uL Normal 150-[address] [facility] Comment on above: Order Comment: Speci men Type: BLOOD SPECIMENOrdering Facility: [facility] Address: [address] [place] [address] Performed By: #### 5 8410-2 ####[facility]ENTERNCGUNN[facility] [id number] [place] [address] [place] RBC (Bld) [#/Vol] 4.71 10*6/uL Normal 4.20-6.[address] [facility] Comment on above: Order Comment: Speci men Type: BLOOD SPECIMENOrdering Facility: [facility] Address: [address] [place] [address] Performed By: #### 5 8410-2 ####[facility] CENTERNCA [id number] [place] [address] [place] WBC (Bld) [#/Vol] 11.36 10*3/uL High 3.70-11.00 [facility] Comment on above: Order Comment: Speci men Type: BLOOD SPECIMENOrdering Facility: [facility] Address: [address] [place] [address] Performed By: #### 5 8410-2 ####[facility]ENTERNCLIA [id number] [place] [address] [place] CNOVon 06-29-2024 CNOV Office Visit (PULMWS ) ARTURO PEDERSEN ([id number]) 1940 M Date Time Provider Department 06/29/24 1:00 PM FLAVIA SMITH PULMWS During your visit today, we recorded the following information about you: Pulse Respiration Blood pressure 69/minute 18/minute 108/64 Flavia Smith, CASKET LINER.AUTO CAMP ATTENDANT 06/29/2024 7:32 PM Signed Pulmonary Medicine Patients name: Arturo Campbell PCP: Paddy Zaidi MD CC: follow-up HPI: Arturo Pedersen is a 83 year old male former 66-oyre-gtnc smoker quitting in 1992 with PMH significant for obesity, coronary artery disease s/p CABG and stent, previous stroke, GERD, HLD, prostate cancer s/p radiation, HTN, PAF on AC, central sleep apnea not wearing PAP, chronic hypoxemic respiratory failure. Current inhaled therapy Advair and PRN Albuterol. He presents today for follow-up with his follow up rep. YOLANDA 03/2024 with exertional dyspnea, chest tightness and wheezing. Started on Advair at that time. Oximetry with ambulation at that time did not show need for supplemental O2 with exertion. He and his follow up rep insist he can't even stand up without [...] in acut (more content not included)... Normal [facility] Comprehensive metabolic 2000 panelon 06-29-2024 Albumin [Mass/Vol] 4.0 g/dL Normal 3.9-4.9 [facility] Comment on above: Order Comment: Speci men Type: BLOOD SPECIMENOrdering Facility: [facility] Address: [address] [place] [address] Performed By: #### 2 4323-8 ####[facility] MILLWNMLIA [id number] [place] [address] [place] ALP [Catalytic activity/Vol] 123 U/L High 38-[address] [facility] Comment on above: Order Comment: Speci men Type: BLOOD SPECIMENOrdering Facility: [facility] Address: [address] [place] [address] Performed By: #### 2 4323-8 ####[facility]ENTERWNCLIA [id number] [place] [address] [place] ALT [Catalytic activity/Vol] 12 U/L Normal 10-[address] [facility] Comment on above: Order Comment: Speci men Type: BLOOD SPECIMENOrdering Facility: [facility] Address: [address] [place] [address] Performed By: #### 2 4323-8 ####[facility] MILLTOWNCLIA [id number] [place] [address] [place] Anion gap [Moles/Vol] 11 mmol/L Normal 8-15 [facility] Comment on above: Order Comment: Speci men Type: BLOOD SPECIMENOrdering Facility: [facility] Address: [address] [place] [address] Performed By: #### 2 4323-8 ####[facility] DEYANIRA [id number] [place] [address] [place] AST [Catalytic activity/Vol] 15 U/L Normal 14-[address] [facility] Comment on above: Order Comment: Speci men Type: BLOOD SPECIMENOrdering Facility: [facility] Address: [address] [place] [address] Performed By: #### 2 4323-8 ####[facility] CENTERA [id number] [place] [address] [place] Bilirubin [Mass/Vol] 0.8 mg/dL Normal 0.2-1.3 [facility] Comment on above: Order Comment: Speci men Type: BLOOD SPECIMENOrdering Facility: [facility] Address: [address] [place] [address] Performed By: #### 2 4323-8 ####[facility]ENTERNCLOCA [id number] [place] [address] [place] Calcium [Mass/Vol] 9.5 mg/dL Normal 8.5-10.2 [facility] Comment on above: Order Comment: Speci men Type: BLOOD SPECIMENOrdering Facility: [facility] Address: [address] [place] [address] Performed By: #### 2 4323-8 ####[facility]ENTERNCLIA [id number] [place] [address] [place] Chloride [Moles/Vol] 101 mmol/L Normal 98-107 [facility] Comment on above: Order Comment: Speci men Type: BLOOD SPECIMENOrdering Facility: [facility] Address: [address] [place] [address] Performed By: #### 2 4323-8 ####[facility]ENTERNCLIA [id number] [place] [address] [place] CO2 [Moles/Vol] 26 mmol/L Normal 22-[address] [facility] Comment on above: Order Comment: Speci men Type: BLOOD SPECIMENOrdering Facility: [facility] Address: [address] [place] [address] Performed By: #### 2 4323-8 ####[facility]OSPITALLIA [id number] [place] [address] [place] Creatinine [Mass/Vol] 0.75 mg/dL Normal 0.73-1.22 [facility] Comment on above: Order Comment: Speci men Type: BLOOD SPECIMENOrdering Facility: [facility] Address: [address] [place] [address] Performed By: #### 2 4323-8 ####[facility] CENTERA [id number] [place] [address] [place] Creatinine and Glomerular filtration rate.predicted panel (S/P/Bld) 89 mL/min/1.73m??? Normal >=[address] [facility] Comment on above: Order Comment: Speci men Type: BLOOD SPECIMENOrdering Facility: [facility] Address: [address] [place] [address] Result Comment: Calista mated Glomerular Filtration Rate [...] actual GFR. Performed By: #### 2 4323-8 ####[facility] CENTERWNCLIA [id number] [place] [address] [place] Glucose [Mass/Vol] 111 mg/dL High 74-99 [facility] Comment on above: Order Comment: Speci men Type: BLOOD SPECIMENOrdering Facility: [facility] Address: [address] [place], [place] [address] Result Comment: The [place] Diabetes Association (ADA) provides guidance for cutoff [...] Standards of Medical Care in Diabetes 2016, [place] [employer] Association. Diabetes Care. 2016.39(Suppl 1). Performed By: #### 2 4323-8 ####[facility] CENTERAIDENLIYazmin [id number] [place] [address] [place] Potassium [Moles/Vol] 4.4 mmol/L Normal 3.7-5.1 [facility] Comment on above: Order Comment: Kika bryant Type: BLOOD SPECIMENOrdering Facility: [facility] Address: [address] [place] [address] Performed By: #### 2 4323-8 ####[facility] CENTERWAIDENLIA [id number] [place] [address] [place] Protein [Mass/Vol] 6.9 g/dL Normal 6.3-8.0 [facility] Comment on above: Order Comment: Speci men Type: BLOOD SPECIMENOrdering Facility: [facility] Address: [address] [place], [place] [address] Performed By: #### 2 4323-8 ####[facility] MILLWNCLIA [id number] [place] [address] [place] Sodium [Moles/Vol] 138 mmol/L Normal 136-144 [facility] Comment on above: Order Comment: Speci men Type: BLOOD SPECIMENOrdering Facility: [facility] Address: [address] [place] [address] Performed By: #### 2 4323-8 ####[facility] [id number] [place] [address] [place] Urea nitrogen [Mass/Vol] 23 mg/dL Normal 9-[address] [facility] Comment on above: Order Comment: Speci men Type: BLOOD SPECIMENOrdering Facility: [facility] Address: [address] [place] [address] Performed By: #### 2 4323-8 ####[facility] [id number] [place] [address] [place] Lipid 1996 panelon 5 Cholesterol [Mass/Vol] 125 mg/dL Normal <200 [facility] Comment on above: Order Comment: Speci men Type: BLOOD SPECIMENOrdering Facility: [facility] Address: [address] [place] [address] Result Comment: <200 mg/dL, Desirable 200-239 mg/dL, Borderline high >239 mg/dL, High Performed By: #### 2 4331-1 ####[facility] LABCLIA [id number] [place] [address] [place] [facility] [id number] [place] [address] [place]#### 3016-3 ####[facility] LABCLIA [id number] [place] [address] [place] Cholesterol in HDL [Mass/Vol] 44 mg/dL Normal >[address] [facility] Comment on above: Order Comment: Speci men Type: BLOOD SPECIMENOrdering Facility: [facility] Address: [address] [place] [address] Result Comment: 40-5 9 mg/dL, Acceptable >59 mg/dL, High: Negative risk factor for coronary heart disease <40 mg/dL, Low: Positive risk factor for coronary heart disease Performed By: #### 2 4331-1 ####[facility] LABCLIA [id number] [address] STATES OF [facility] [id number] [address] STATES OF [place]#### 3016-3 ####[facility] LABCLIA [id number] [place] [address] [place] Cholesterol in LDL [Mass/Vol] 66 mg/dL Normal <[address] [facility] Comment on above: Order Comment: Speci men Type: BLOOD SPECIMENOrdering Facility: [facility] Address: [address] [place] [address] Result Comment: <100 mg/dL, Optimal 100-129 mg/dL, Near optimal/above optimal 130-159 mg/dL, Borderline high 160-189 mg/dL, High >189 mg/dL, Very high Secondary prevention optimal LDL Cholesterol levels are recommended to be <70 mg/dL LDL cholesterol is calculated using the Yost-NIH equation. Performed By: #### 2 4331-1 ####[facility] LABCLIA [id number] [address] STATES OF [facility] [id number] [address] STATES OF [place]#### 3016-3 ####[facility] LABCLIA [id number] [place] [id number] [place] Cholesterol in LDL/Cholesterol in HDL [Mass ratio] 1.50 {ratio} Normal <2.[address] [facility] Comment on above: Order Comment: Speci men Type: BLOOD SPECIMENOrdering Facility: [facility] Address: [address] [place] [address] Result Comment: Ana red: 1. National Cholesterol Education Program ATP III Guideline At-A-Glance Quick Desk Reference: National Heart, Lung, and Blood [place]. National Institutes of Health. 2001: NIH Publication No. 01-3305. 2. An International Atherosclerosis Society position paper: global recommendations for the management of dyslipidemia: executive summary, Atherosclerosis. 2014: 232(2):410-413. Performed By: #### 2 4331-1 ####[facility] LABCLIA [id number] [address] [id number] [place] [address] [place]#### 3016-3 ####[facility] LABCLIA [id number] [place] [address] [place] Cholesterol in VLDL [Mass/Vol] 11 mg/dL Normal <[address] [facility] Comment on above: Order Comment: Speci men Type: BLOOD SPECIMENOrdering Facility: [facility] Address: [address] [place] [address] Performed By: #### 2 4331-1 ####[facility] LABCLIA [id number] [place] [id number] [place] [address] [place]#### 3016-3 ####[facility] LABCLIA [id number] [place] [address] [place] Cholesterol non HDL [Mass/Vol] 81 mg/dL Normal <[address] [facility] Comment on above: Order Comment: Speci men Type: BLOOD SPECIMENOrdering Facility: [facility] Address: [address] [place] [address] Result Comment: <130 mg/dL, Optimal 130-159 mg/dL, Near optimal/above optimal 160-189 mg/dL, Borderline high 190-219 mg/dL, High >219 mg/dL, Very high Secondary prevention optimal non HDL Cholesterol levels are recommended to be <100 mg/dL Performed By: #### 2 4331-1 ####[facility] LABCLIA [id number] [address] [place] [address] [place] [facility] [id number] [place] [address] [place]#### 3016-3 ####[facility] LABCLIA [id number] [address], [facility]95 [place] Cholesterol.total/Choles terol in HDL [Mass ratio] 2.84 {ratio} Normal <5.[address] [facility] Comment on above: Order Comment: Speci men Type: BLOOD SPECIMENOrdering Facility: [facility] Address: [address] [place] [address] Performed By: #### 2 4331-1 ####[facility] LABCLIA [id number] [address], [address] STATES OF [facility] [id number] [place] [address] [place]#### 3016-3 ####[facility] LABCLIA [id number] [address], [facility]95 [place] FASTING TIME 12 hrs Normal [facility] Comment on above: Order Comment: Speci men Type: BLOOD SPECIMENOrdering Facility: [facility] Address: [address] [place] [address] Performed By: #### 2 4331-1 ####[facility] LABCLIA [id number] [facility] [address], [facility] [place] [facility] [id number] [place] [address] [place]#### 3016-3 ####[facility] LABCLIA [id number] [address] Triglyceride [Mass/Vol] 71 mg/dL Normal <150 [facility] Comment on above: Order Comment: Kika bryant Type: BLOOD SPECIMENOrdering Facility: [facility] Address: [address] [place] [address] Result Comment: <150 mg/dL, Normal 150-199 mg/dL, Borderline high 200-499 mg/dL, High >499 mg/dL, Very high Performed By: #### 2 4331-1 ####[facility] LABCLIA [id number] [address] [id number] [address]#### 3016-3 ####[facility] LABCLIA [id number] [address] PT panel Coag (PPP)on 2024 INR Coag (PPP) [Relative time] 1.2 {INR} Normal 0.9-1.[address] [facility] Comment on above: Order Comment: Kika bryant Type: BLOOD SPECIMENOrdering Facility: [facility] Address: [address] [place] [address] Result Comment: Marilee min K Antagonist (VKA) Therapeutic Range: INR 2 to 3 (Target INR of 2.5) Note: For patients treated with VKA drugs, such as warfarin, the [place] [employer] 2012 Guideline recommends [...] to 3.5 (target INR of 3). Raymond RALPH, et al. Chest 2012, 141:7S-47S Alvino RA, et al. [facility] 2017, 70: 252-289 Performed By: #### 3 4528-0 ####[facility] [id number] [place] [address] [place] PT Coag (PPP) [Time] 12.6 s Normal <13.1 [facility] Comment on above: Order Comment: Speci men Type: BLOOD SPECIMENOrdering Facility: [facility] Address: [address] [place] [address] Performed By: #### 3 4528-0 ####[facility]ENTERNCGUNN[facility] [id number] [address] STATES [place] TSH SerPl-aCncon 06-29-2024 TSH Qn 2.210 m[IU]/L Normal 0.270-4.[address] [facility] Comment on above: Order Comment: Speci men Type: BLOOD SPECIMENOrdering Facility: [facility] Address: [address] [place] [address] Performed By: #### 2 4331-1 ####[facility] LABIA [id number] [id number] [place] [address] OF [place]#### 3016-3 ####[facility] LABIA [id number] [address] [place] CNOVon 03-27-2024 CNOV Office Visit (PULMWS ) ARTURO PEDERSEN ([id number]) 1940 M Date Time Provider Department 03/27/24 2:00 PM FLAVIA SMITH PULMWS During your visit today, we recorded the following information about you: Pulse Respiration Blood pressure 90/minute 18/minute 122/80 Flavia Smith APRN.CNP 03/27/2024 5:53 PM Signed Pulmonary Medicine Patients name: Arturo Campbell PCP: Paddy Zaidi MD CC: follow-up HPI: Arturo Pedersen is a 83 year old male former 83-favz-vgsd smoker quitting in 1992 with PMH significant [...] Had also just previously been hospitalized at [facility] for Pneumonia. At his last visit, [...] tightness. Has frequent wheezing that prompts his follow up rep to remind him to use Albuterol. No [...] 160-9-4.8 mcg/actuation HFA aerosol inhaler Generic drug: sbfcqvubye-nghkisti-mkn moterol Inhale 2 Puffs as instructed two [...] for arthra (more content not included)... Normal [facility] CT CHEST WO IVCONon 03-27-19 CT CHEST WO IVCON * * *Final Report* * * DATE OF EXAM: Mar 27 2024 3:54PM [facility] 0541 - CT CHEST [...] enlargement. Status post CABG surgery with severe g[place] coronary artery atherosclerotic calcifications are noted, although [...] significantly enlarged lymph nodes in the chest. Shell Trim Operator: FATOUMATA Transcribe Date/Time: Mar 31 2024 5:10P Dictated by : VIDA CAAL MD This examination was interpreted and the report reviewed and electronically signed by: VIDA CAAL MD on Mar 31 2024 5:18PM EST [id number] Normal [facility] OXIMETRY WITH AMBULATIONon 0 03-27-2024 Shelly [...] Patient does not have a faster pace [facility] CNPRadha [facility]-20[facility] ARTURO ([id number]) 1940 M Date Time Provider Department 03/21/24 [...] if sx warrant medical attention. Hever Martinez APRN.CNP 03/21/2024 12:52 PM Signed Please offer appointment [...] this week, but they declined. Hever Otoole APRN.CNP 03/22/2024 10:28 AM Signed Noted, Tuesday is fine Hever Martínez APRN.CNP Allergies As of Date: 03/21/2024 Noted Allergy Reaction ASPIRIN 04/19/2018 16 - Unknown OXYCODONE 04/19/2018 14 - Other: See Comments PERCODAN (OXYCODONE-ASPIRIN) 12/17/2004 1 - Mental Status Change Date Reviewed: 03/05/2024 Reviewed by: Edwina De León LPN - Fully Assessed Reason for Visit: Appointment [186] Prescriptions as of 03/22/2024 - furosemide (LASIX) 20 mg tablet Take 1 tablet by mouth once daily. - warfarin (COUMADIN) 2.5 mg tablet TAKE 1 TABLET BY MOUTH ONCE DAILY DIRECTED - wypuxkjlex-iwzhmdpp-giw moterol (BREZTRI AEROSPHERE) 160-9-4.8 mcg/actuation HFA aerosol [...] Anxiety [F41.9] 12/23/2021 Atherosclerotic heart disease of gakona coronar*10/19/2017 Cerebrovascular accident (CVA) (HCC) [I63.9] 12/23/2021 [...] acute postp (more content not included)... Normal [facility] CNPRadha 03-06-2024 CNPN Telephone (PULMWS) ARTURO PEDERSEN ([id number]) 1940 M Date Time Provider Department 03/06/24 RAINA HUYNH During your visit today, we recorded the following information about you: Judy Wong MA 03/06/2024 9:29 AM Signed Analilia - Pharmacist from [facility] calling and asking if there is an alternative to the Breztri inhaler? Patient has a $100.00 copay and is unable to afford it. Edwina De León LPN 03/06/2024 10:10 AM Signed Breztri and [...] SW can inquire about medication assistance. Edwina De León LPN Allergies As of Date: 03/06/2024 Noted Allergy Reaction ASPIRIN 04/19/2018 16 - Unknown OXYCODONE 04/19/2018 14 - Other: See Comments PERCODAN (OXYCODONE-ASPIRIN) 12/17/2004 1 - Mental Status Change Date Reviewed: 03/05/2024 Reviewed by: Edwina De León LPN - Fully Assessed Prescriptions as of 03/08/2024 - rvozxfvryq-yisyypgi-gus moterol (BREZTRI AEROSPHERE) 160-9-4.8 mcg/actuation HFA aerosol [...] Anxiety [F41.9] 12/23/2021 Atherosclerotic heart disease of gakona coronar*10/19/2017 Cerebrovascular accident (CVA) (HCC) [I63.9] 12/23/2021 [...] BMI 30-34.9 [E66.811] 02/14/2024 Encounter Status:Closed by DARIENEDWINA GRIJALVA on 03/08/24 [facility] Telephone (FPWADS) ARTURO PEDERSEN ([id number]) 1940 M Date Time Provider Department 03/06/24 PADDY ZAIDI [employer] During your visit today, we recorded the [...] answer. LVM to call office back Violetta Humphrey, FREIDA 03/16/2024 1:03 PM Signed Spoke to Hui- states he has been taking warfarin every day, 2.5 mg. Never misses a day. Call Hui back with response [phone] advise her to clean out VM so we can leave messages. FREIDA Olivarez Jeffery R, MD 03/16/2024 5:19 PM Signed Just take 1 time dose of 5 mg. One extra pill just one dose. Check INR in 2 weeks MD Toni Sheehanski, Violetta Gee, FREIDA 03/17/2024 9:32 AM Signed Called Hui at [phone] Vm still full-could not leave message. Called all other listed numbers- no answer. VM's are all full-could not leave message. Not active on MyChart. Will need to try again later. FREIDA Olivarez Melanie, RN 03/19/2024 10:52 AM Signed Called [phone]. No answer. Mailbox still full. Isabell Sood, [...] Change Date Reviewed: 03/05/2024 Reviewed by: Edwina De León LPN - Fully Assessed Reason for Visit: Anticoagulation [8] Prescriptions as of 03/21/2024 - warfarin (COUMADIN) 2.5 mg tablet TAKE 1 TABLET BY MOUTH ONCE DAILY DIRECTED - aoyxqaxwzf-jmhqbdvk-tdc moterol (BREZTRI AEROSPHERE) 160-9-4.8 mcg/actuation HFA aerosol [...] Anxiety [F41.9] 12/23/2021 Atherosclerotic heart disease of gakona coronar*10/19/2017 Cerebrovascular accident (CVA) (HCC) [I63.9] 12/23/2021 [...] cord [J38 (more content not included)... Normal [facility] CNOVon 03-05-2024 CNOV Office Visit (PULMWS ) ARTURO PEDERSEN ([id number]) 1940 M Date Time Provider Department 03/05/24 3:15 PM RAINA HUYNH PULWM During your visit today, we recorded the following information about you: Pulse Respiration Blood pressure Weight 112/minute 14/minute 122/68 96.2 kg Height 1.715 m Raina Huynh MD 03/05/2024 4:00 PM Signed . Respiratory [place] Note Patient name: Arturo Pedersen PCP: Paddy Zaidi MD Referring Physician: Hever Martínez CNP Consultation requested by Hever Martínez for an opinion regarding COPD. My final recommendations will be communicated back to the requesting physician by way of shared Medical record or letter to requesting physician via US mail. CC: COPD HPI: Arturo Pedersen 83 year old male former [id number] smoker quitting in 1992 with PMH significant for obesity, coronary artery disease s/p CABG and stent, previous stroke, GERD, HLD, prostate cancer s/p radiation, HTN, PAF on AC, central sleep apnea not wearing PAP, chronic hypoxemic respiratory failure being sent for evaluation of COPD. Recently hospitalized at [facility] for pneumonia. CT of the chest [...] recurrent bronchitis. DME: [employer] DATA: PFT: PFT [facility] 10/23/2018; FVC 2.41 L 57% FEV1 1.62 L 54% FEV1/FVC 67% No improvement post-bronchodilator TLC 5.01 L 76% RV 2.60 L 94% RV/TLC 52% DLCO 15.2 73% Imaging / Diagnostic Studies: [facility] MR#: [id number] Acct: [id number] Name: ARTURO PEDERSEN Rep #: [id number] : 1940 M 83 From: Shayne Holt [...] the tongue every 5 minutes as needed. ffevfxqsus-robclsja-ytk moterol (BREZTRI AEROSPHERE) 160-9-4.8 mcg/actuation HFA aerosol inhaler Inhale 2 Puffs as instructed two times a day. albuterol HFA (PROVENTIL HFA, VENTOLIN HFA) 90 mcg/actuation inhaler Inhale 2 Puffs as instructed every 4 hours as needed for wheezing/shortness of breath. warfarin (COUMADIN) (more content not included)... Normal [facility] No Panel Informationon 03-05 DLCO (ml/min/mmHg) 12.07 ml/min/mmHg [facility] DLCO LLN (ml/min/mmHg) 11.87 ml/min/mmHg [facility] DLCO PREDICTED (ml/min/mmHg) 21.80 ml/min/mmHg [facility] DLCO ULN (ml/min/mmHg) 31.74 ml/min/mmHg [facility] DLCO/VA (ml/min/mmHg/L) 4.14 ml/m in/mmHg/ L [facility] DLCO/VA PREDICTED (ml/min/mmHg/L) 3.63 ml/min/mmHg/ L [facility] DLCOcor PREDICTED (ml/min/mmHg) 21.80 ml/min/mmHg [facility] ERV PREDICTED (L) 1.12 L/S [facility] FEF25% POST (L/S) 3.52 L/S [facility] FEF25% PRE (L/S) 2.38 L/S [facility] WMR16-73% LLN (L/S) 0.63 L[facility] WDV94-57% POST (L/S) 0.46 L/S [facility] MAQ84-60% PRE (L/S) 0.42 L[facility]S [facility] XKI75-96% PREDICTED (L/S) 1.77 L/S [facility] FEF75% LLN (L/S) 0.13 L/S [facility] FEF75% POST (L/S) 0.13 L/S [facility] FEF75% PRE (L/S0 0.14 L/S [facility] FEF75% PREDICTED (L/S) 0.41 L/S [facility] FEF75% ULN (L/S) 1.23 L/S [facility] FET POST (S) 10.37 S [facility] FET PRE (S) 11.27 S [facility] FEV1 LLN (L) 1.76 L [facility] FEV1 PRE (L) 1.19 L [facility] FEV1 PREDICTED (L) 2.46 L [facility] FEV1 ULN (L) 3.11 L [facility] FEV1/FVC LLN (%) 61 % [facility] FEV1/FVC POST (%) 64 % [facility] FEV1/FVC PRE (%) 60 % [facility] FEV1/FVC PREDICTED (%) 76 % [facility] FEV1_POST (L) 1.23 L [facility] FVC LLN (L) 2.46 L [facility] FVC POST (L) 1.93 L [facility] FVC PRE (L) 1.97 L [facility] FVC PREDICTED (L) 3.[address] [facility] FVC ULN (L) 4.26 L [facility] IC PREDICTED (L) 2.24 L/S [facility] PEF LLN (L/S) 3.95 L/S [facility] PEF POST (L/S) 4.29 L/S [facility] PEF PRE (L/S) 4.00 L/S [facility] PEF ULN (L/S) 8.26 L/S [facility] SVC LLN (L) 2.46 L/S [facility] SVC PREDICTED (L) 3.35 L/S [facility] SVC ULN (L) 4.26 L/S [facility] VA (L) 2.92 L [facility] VA PREDICTED (L) 6.34 L [facility] [address] [place] [address] Test Date: 2024-03-05 Pat Name: ARTURO PEDERSEN Department: Room: Gender: M Gas Desulfurizer: : 1940 Requested By: Order Number: [id number] Reading MD: Raina Huynh MD Interpretive Statements [...] 16:02:40 EST by Raina Huynh MD ID: [id number] Name: ARTURO PEDERSEN Race: White Ht: 67.52 in Wt: 212.00 lbs Age: 83 Gender: Male : 1940 Dx: COPD_ Smoking Hx: Non-smoker Doctor: RAINA HUYNH Test Date: 03/05/2024 Site: [facility] Tech: Shelly Sims PRE-BRONCH POST-BRONCH Pre LLN Pred [...] 0.43 37 FIVC (L) 1.96 1.86 -4 CTP02-11 (L/sec) 0.42 0.63 1.77 3.49 23 0.46 [...] may not be valid. PULMONARY FUNCTION LAB [facility] PT panel Coag (PPP)on 2024 INR Coag (PPP) [Relative time] 1.5 {INR} High 0.9-1.[address] [facility] Comment on above: Order Comment: Speci men Type: BLOOD SPECIMENOrdering Facility: [facility] Address: [address] [place] [address] Result Comment: Marilee min K Antagonist (VKA) Therapeutic Range: INR 2 to 3 (Target INR of 2.5) Note: For patients treated with VKA drugs, such as warfarin, the [employer] 2012 Guideline recommends [...] Chest 2012, 141:7S-47S Alvino RA, et al. [facility] 2017, 70: 252-289 Performed By: #### 3 4528-0 ####[facility] [id number] [place] [address] [place] PT Coag (PPP) [Time] 15.8 s High <13.1 [facility] Comment on above: Order Comment: Kika bryant Type: BLOOD SPECIMENOrdering Facility: [facility] Address: [address] [place] [id number] Performed By: #### 3 4528-0 ####[facility] [id number] [address] [place] CNPRadha 02-15-2024 TALAH Telephone (POOJASlatedPATY) ARTURO PEDERSEN ([id number]) 1940 Trudi Date Time Provider Department 02/15/24 PADDY ZAIDI During your visit today, we recorded the following information about you: Ozzy RigginsCorrina Trudi 02/15/2024 3:31 PM Signed Hui, Caregiver, is calling Paddy Zaidi MD today with concern regarding Medication Problem. Patient Jose is $300 with the copay and he cannot afford this. They are asking for Warfarin or another medication. Patient has been identified by name and birthdate. Duration of symptoms: N/A Hui Call patient at: [phone] (home) [phone] (cell) Was an appointment scheduled: No Closing statement: Corrina Brush Paddy Kate MD 02/16/2024 9:59 AM Signed Will try [...] for 1x per week, standing order for [place] lab. Once he's on a steady dose can cut this back to 1x per sergio . MD Marissa Shehean Lisa, LPN 02/16/2024 10:22 AM Signed Patients son aware that medication was sent to [facility] in [place]. Son stated he understood that blood work needed drawn in 1 week in [place]. Allergies As of Date: 02/15/2024 Noted Allergy Reaction ASPIRIN 04/19/2018 16 - Unknown OXYCODONE 04/19/2018 14 - Other: See Comments PERCODAN (OXYCODONE-ASPIRIN) 12/17/2004 1 - Mental Status Change Date Reviewed: 02/14/2024 Reviewed by: Talia Ann LPN - Fully Assessed Reason for Visit: Medication Problem [65] Primary Visit Diagnosis:Chronic atrial fibrillation (HCC) [I48.20] Other Visit Diagnosis:nursing home current use of anticoagulant therapy [Z79.01] Order(s):warfarin (COUMADIN) 2.5 mg tabletTake 1 tablet by mouth daily as directed.Disp: 30 tabletRfl: 0 PROTHROMBIN TIME [SQPT] Order #: [id number] STANDING Prescriptions as of 02/16/2024 - warfarin [...] Anxiety [F41.9] 12/23/2021 Atherosclerotic heart disease of gakona coronar*10/19/2017 Cerebrovascular accident (CVA) (HCC) [I63.9] 12/23/2021 Chronic obstructive asthma with exacerbation (H*12/18/2021 Dysarthria [R47.1] 12/23/2021 Dysphagia [R13.10] 12/23/2021 Encounter for immunization [Z23] 01/12/2018 Gastroesophageal reflux disease [K21.9] 12/23/2021 Hoarseness [R49.0] 11/05/2016 Hypokalemia [E87.6] 12/23/2021 Malignant neoplasm of prostate (HCC) [C61] 12/23/2021 Moderate COPD (chronic obstructive pulmonary di*11/19/2015 Myocardial infarction ([facility]) [I21.9] 12/18/2021 Neurological symptoms [R29.90] 12/23/2021 Other acute postprocedural pain [G89.18] 09/13/2017 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 Normal [facility] CNOVon 02-14-2024 CNOV Office Visit (ELIZABETH ) ARTURO PEDERSEN ([id number]) 1940 M Date Time Provider Department 02/14/24 2:00 PM HEVER MARTÍNEZ During your visit today, we recorded the following information about you: Pulse Blood pressure 96/minute 132/78 Hever Martínez APRN.AUTO CAMP ATTENDANT 02/14/2024 4:39 PM Signed This note was created using [employer]. Subjective Arturo Pedersen is a 83 year old male. Patient here with delivery person. Treated for RLL pneumonia at the ER, still taking antibiotic as prescribed. Caregiver reports that the Jose wasn't with his other medications, she's not [...] of AFIB and CAD, never seen a recreation teacher. Uses walker for ambulation, sleeps in the [...] HIP FRACTURE(S) Left 11/2017 hip screw placed [facility] ALLERGIES Aspirin, Oxycodone, and Percodan [Oxycodone-Aspirin] [...] Chronic obstructive pulmonary disease, unspecified COPD type ([facility]) Recommend to establish care with bilingual call center representative, continue oxygen. - CONSULT TO PULMONARY MEDICINE 3. Adjustment disorder with mixed anxiety an (more content not included)... [facility]FPWADS) ARTURO PEDERSEN ([id number]) 1940 M Date Time Provider Department 02/14/24 PADDY ZAIDI FPEUN During your visit today, we recorded the following information about you: Varsha Byers 02/14/2024 4:49 PM Signed [place] is calling [...] Authorizing Provider: PADDY ZAIDI MD Hummel, Megan, APRN.CNP 02/15/2024 9:01 AM Signed New Rx sent Hever Martínez APRN.CNP Allergies As of Date: 02/14/2024 Noted Allergy [...] Anxiety [F41.9] 12/23/2021 Atherosclerotic heart disease of gak[place] coronar*10/19/2017 Cerebrovascular accident (CVA) ([facility]) [I63.9] 12/23/2021 Chronic obstructive asthma with exacerbation (H*12/18/2021 Dysarthria [R47.1] 12/23/2021 Dysphagia [R13.10] 12/23/2021 Encounter for immunization [Z23] 01/12/2018 Gastroesophageal reflux disease [K21.9] 12/23/2021 Hoarseness [R49.0] 11/05/2016 Hypokalemia [E87.6] 12/23/2021 Malignant neoplasm of prostate ([facility]) [C61] 12/23/2021 Moderate COPD (chronic obstructive pulmonary di*11/19/2015 Myocardial infarction ([facility]) [I21.9] 12/18/2021 Neurological symptoms [R29.90] 12/23/2021 Other acute postprocedural pain [G89.18] 09/13/2017 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] 12/23/2021 Paralysis of vocal cords and larynx, unspecifie*01/04/2017 Pneumonia due to Streptococcus pneumoniae ([facility])*12/18/2021 Right hemiparesis ([facility]) [G81.91] 12/23/2021 Weakness [R53.1] 06/05/2021 Coronary artery [...] Encounter Status:Closed by SHAYNE ZAIDI on 02/14/24 [facility] Telephone (FPWADS) PEDERSENARTURO Mann ([id number]) 1940 M Date Time Provider Department 02/14/24 HEVER MARTÍNEZ During your visit today, we recorded the following information about you: Lacie Muñoz 02/14/2024 4:12 PM Signed 1st attempt to reach for scheduling, left voicemail. Adrian was seen at [facility] today, and Hever referred him to see Pulmonology. He was unable to stay for scheduling but he and his caregiver said they would like to do all the appointments at [place]. Although there are many available times to [...] patients son and schedule pulmonology appt in [place] Allergies As of Date: 02/14/2024 Noted Allergy [...] Anxiety [F41.9] 12/23/2021 Atherosclerotic heart disease of gakona coronar*10/19/2017 Cerebrovascular accident (CVA) (HCC) [I63.9] 12/23/2021 [...] Encounter Status:Closed by LACIE MUÑOZ on 02/14/24 [facility] Tessa 02-13-2024 CNPN Telephone (FPWADS) ARTURO PEDERSEN ([id number]) 1940 M Date Time Provider Department 02/13/24 PADDY ZAIDI FPEUN During your visit today, we recorded the following information about you: Ge Will LPN 02/13/2024 11:29 AM Signed Received visit summary for SOB from [facility] ed. Placed in provider's inbox for review. Route to MA scanning Allergies As of Date: 02/13/2024 Noted Allergy Reaction ASPIRIN 04/19/2018 16 - Unknown OXYCODONE 04/19/2018 14 - Other: See Comments PERCODAN (OXYCODONE-ASPIRIN) 12/17/2004 1 - Mental Status Change Date Reviewed: 06/07/2023 Reviewed by: Ge Will LPN - Fully Assessed Reason for Visit: Received Outside Medical Records [[id number]] Cmt: [facility] ED Prescriptions as of 02/13/2024 - [...] Anxiety [F41.9] 12/23/2021 Atherosclerotic heart disease of gakona coronar*10/19/2017 Cerebrovascular accident (CVA) (HCC) [I63.9] 12/23/2021 [...] Status:Closed by GE WILL on 02/13/[address] [facility] Basic Metabolic Profile (BMP )on 02-07-2024 BUN/CRE 27.3 RATIO High 10-20 [facility] Comment on above: Performed By: #### M 300.4600, L400.0001, M300.4500 #### [facility] [address] [place], [address] CA,Total 9.5 mg/dL Normal 8.5-10.1 [facility] Comment on above: Performed By: #### M 300.4600, L400.0001, M300.4500 #### [facility] [address] [place], [address] Chloride [Moles/Vol] 102 mmol/L Normal 98-[address] [facility] Comment on above: Performed By: #### M 300.4600, L400.0001, M300.4500 #### [facility] [address] [place], [address] CO2 [Moles/Vol] 32.0 mmol/L Normal 21.0-32.0 [facility] Comment on above: Performed By: #### M 300.4600, L400.0001, M300.4500 #### [facility] [address] [place], [address] Creatinine [Mass/Vol] 0.81 mg/dL Normal 0.70-1.30 [facility] Comment on above: Result Comment: The validity of the calculated GFR GFRAA in patients over 70 years has not been determined. Clinical correlation is essential. Performed By: #### M 300.4600, L400.0001, M300.4500 #### [facility] [address] [place], [address] EST GFR - AA 117 mL/min Normal >60 [facility] Comment on above: Result Comment: Afri can [place] GFR Calc Performed By: #### M 300.4600, L400.0001, M300.4500 #### [facility] [address] [place], [address] GAP 3 Low 5-15 [facility] Comment on above: Performed By: #### M 300.4600, L400.0001, M300.4500 #### [facility] [address] [place], [address] GFR/1.73 sq M.predicted among non-blacks MDRD (S/P/Bld) [Vol rate/Area] 97 mL/min/{1.73_m2} Normal >60 [facility] Comment on above: Result Comment: Non- GFR Calc Performed By: #### M 300.4600, L400.0001, M300.4500 #### [facility] [address] [place], [address] Glucose [Mass/Vol] 117 mg/dL High 74-106 [facility] Comment on above: Result Comment: Fast ing Glucose result from 100 to 125 mg/dL suggests IMPAIRED HOMEOSTASIS per A.D.A. criteria. Performed By: #### M 300.4600, L400.0001, M300.4500 #### [facility] [address] [place], [address] Potassium [Moles/Vol] 4.6 mmol/L Normal 3.5-5.1 [facility] Comment on above: Performed By: #### M 300.4600, L400.0001, M300.4500 #### [facility] [address] [place], [address] Sodium [Moles/Vol] 137 mmol/L Normal 136-145 [facility] Comment on above: Performed By: #### M 300.4600, L400.0001, M300.4500 #### [facility] [address] [place], [address] Urea nitrogen [Mass/Vol] 22 mg/dL High 7-18 [facility] Comment on above: Performed By: #### M 300.4600, L400.0001, M300.4500 #### [facility] [address] [place], [address] CBC W/Diff, Automatedon 12-3 Absolute Lymph 0.90 X10 3/uL Normal 0.83-4.51 [facility] Comment on above: Performed By: #### M 300.4600, L400.0001, M300.4500 #### [facility] [address] [place], [address] Absolute Neut 12.6 X10 3/uL High 2.0-7.7 [facility] Comment on above: Performed By: #### M 300.4600, L400.0001, M300.4500 #### [facility] [address] [place], [address] Basophils/100 WBC (Bld) 0.7 % Normal 0-1 [facility] Comment on above: Performed By: #### M 300.4600, L400.0001, M300.4500 #### [facility] [address] [place], [address] Eosinophils/100 WBC (Bld) 1.4 % Normal 0-5 [facility] Comment on above: Performed By: #### M 300.4600, L400.0001, M300.4500 #### [facility] [address] [place], [address] Erythrocyte distribution width (RBC) [Ratio] 13.2 % Normal 11.6-14.6 [facility] Comment on above: Performed By: #### M 300.4600, L400.0001, M300.4500 #### [facility] [address] [place], [address] Hematocrit (Bld) [Volume fraction] 46.2 % Normal 40-54 [facility] Comment on above: Performed By: #### M 300.4600, L400.0001, M300.4500 #### [facility] [address] [place], [address] Hemoglobin (Bld) [Mass/Vol] 14.5 g/dL Normal 13.0-16.5 [facility] Comment on above: Performed By: #### M 300.4600, L400.0001, M300.4500 #### [facility] [address] [place], [address] IG% 1.200 High 0.0-0.9 [facility] Comment on above: Result Comment: IG% - Immature Granulocytes (promyelocytes, myelocytes and metamyelocytes) > 1% indicates that a LEFT SHIFT is Present. Performed By: #### M 300.4600, L400.0001, M300.4500 #### [facility] [address] [place], [address] Lymphocytes/100 WBC (Bld) 6.1 % Low 19-41 [facility] Comment on above: Performed By: #### M 300.4600, L400.0001, M300.4500 #### [facility] [address] [place], [address] MCH (RBC) [Entitic mass] 31.1 pg Normal 27.0-32.0 [facility] Comment on above: Performed By: #### M 300.4600, L400.0001, M300.4500 #### [facility] [address] [place], [address] MCHC (RBC) [Mass/Vol] 31.4 g/dL Low 32-36 [facility] Comment on above: Performed By: #### M 300.4600, L400.0001, M300.4500 #### [facility] [address] [place], [address] MCV (RBC) [Entitic vol] 99.1 fL High 80-94 [facility] Comment on above: Performed By: #### M 300.4600, L400.0001, M300.4500 #### [facility] [address] [place], [address] Monocytes/100 WBC (Bld) 5.0 % Normal 0-10 [facility] Comment on above: Performed By: #### M 300.4600, L400.0001, M300.4500 #### [facility] [address] [place], [address] Neutrophils/100 WBC (Bld) 85.6 % High 47-70 [facility] Comment on above: Performed By: #### M 300.4600, L400.0001, M300.4500 #### [facility] [address] [place], [address] Nucleated RBC (Bld) [#/Vol] 0 10*3/uL Normal 0-5 [facility] Comment on above: Performed By: #### M 300.4600, L400.0001, M300.4500 #### [facility] [address] [place], [address] Platelet mean volume (Bld) [Entitic vol] 8.7 fL Normal 6.2-12.0 [facility] Comment on above: Performed By: #### M 300.4600, L400.0001, M300.4500 #### [facility] [address] [place], [address] Platelets (Bld) [#/Vol] 243 10*3/uL Normal 150-450 [facility] Comment on above: Performed By: #### M 300.4600, L400.0001, M300.4500 #### [facility] [address] [place], [address] RBC (Bld) [#/Vol] 4.66 10*6/uL Normal 4.6-6.[address] [facility] Comment on above: Performed By: #### M 300.4600, L400.0001, M300.4500 #### [facility] [address] [place], [address] RDW SD 47.5 fl High 35.1-43.9 [facility] Comment on above: Performed By: #### M 300.4600, L400.0001, M300.4500 #### [facility] [address] [place], [address] WBC (Bld) [#/Vol] 14.7 10*3/uL High 4.4-11.[address] [facility] Comment on above: Performed By: #### M 300.4600, L400.0001, M300.4500 #### [facility] [address] [place], [address] CTA Chest W/WO Contraston CTA Chest W/WO Contrast [facility] Imaging Services [address] [place], [place] [address] CTA Chest W/WO Contrast MR#: [id number] Acct: [id number] Name: ARTURO PEDERSEN Rep #: [id number] : 1940 M 83 From: Shayne Holt MD PCP: Dr. Shayne Zaidi MD Status: REG ER Study: CTA Chest W/WO Contrast Date of Exam: 02/07/24 Exam# [id number] Ordering Dr: [place] [id number] STUDY: CTA CHEST REASON FOR EXAM: Male, [...] Signed: Shayne Holt MD at 17:49 EST , CC: Dr. Alpa Jeffries DO; Dr. Shayne Zaidi MD Shell Trim Operator: Signed Normal [facility] Chest 1 View (Portable)on Chest 1 View (Portable) [facility] Imaging Services [address] [place] [address] Chest 1 View (Portable) MR#: [id number] Acct: [id number] Name: ARTURO PEDERSEN Rep #: [id number] : 1940 M 83 From: Uriel Moody PCP: Dr. Shayne Zaidi MD Status: PRE ER Study: Chest 1 View (Portable) Date of Exam: 02/07/24 Exam# [id number] Ordering Dr: Yevgeniy Reis [id number] INDICATION: COUGH EXAMINATION/TECHNIQUE: X-RAY - XR Chest [...] Dr. Shayne Zaidi MD; ED PHYSICIAN PROVIDER Shell Trim Operator: Signed Normal [facility] Emergency Department Summary on 02-07-2024 Emergency Department Summary [facility] Medical Records Department [address] [place] [address] Emergency Department Summary 02/07/24 MR#: [id number] Acct: [id number] Name: ARTURO PEDERSEN Rep #: [id number] : 1940 83 From: Alpa Jeffries DO [...] other complaints or concerns at this time. 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 Normal [facility] M100.678on 02-07-2024 M100.678 Pending SARS-CoV-2 (COVID 19) Negative INFLUENZA A Negative INFLUENZA B Negative RSV PCR Negative Normal [facility] Comment on above: Performed By: #### L 400.0001 #### [facility] [address] [facility] [id number] Urinalysis, Completeon 02-06 BACTERIA RARE Normal None Seen [facility] Comment on above: Order Comment: COLLE CTOR TO SPECIFY Performed By: #### L 400.0001 #### [facility] [address] [facility] [id number] EPI,SQUAMOUS 0-5 SEEN Normal 0-5 [facility] Comment on above: Order Comment: COLLE CTOR TO SPECIFY Performed By: #### L 400.0001 #### [facility] [address] [facility] [address] Mucus Ql (Urine sed) RARE Normal [facility] Comment on above: Order Comment: COLLE CTOR TO SPECIFY Performed By: #### L 400.0001 #### [facility] [address] [place], [address] WBC 5-10 SEEN Normal 0-5 [facility] Comment on above: Order Comment: COLLE CTOR TO SPECIFY Performed By: #### L 400.0001 #### [facility] [address] [place], [place], [id number] RBC 0 SEEN Normal 0-5 [facility] Comment on above: Order Comment: COLLE CTOR TO SPECIFY Performed By: #### L 400.0001 #### [facility] [address] [place], [place], [id number] CNPNon 12-21-2023 SHANNAN Telephone (ELIZABETH) ARTURO PEDERSEN ([id number]) 1940 M Date Time Provider Department 12/21/23 PADDY ZAIDI During your visit today, we recorded the following information about you: Ge Will LPN 12/21/2023 3:29 PM Signed Received annual oxygen rx from [employer]. Placed in provider's inbox for review. Route to CT fax Allergies As of Date: 12/21/2023 Noted Allergy Reaction ASPIRIN 04/19/2018 16 - Unknown OXYCODONE 04/19/2018 14 - Other: See Comments PERCODAN (OXYCODONE-ASPIRIN) 12/17/2004 1 - Mental Status Change Date Reviewed: 06/07/2023 Reviewed by: Ge Will LPN - Fully Assessed Reason for Visit: Orders [681] Cmt: [employer] annual oxygen rx Prescriptions as of 12/21/2023 [...] Anxiety [F41.9] 12/23/2021 Atherosclerotic heart disease of gakona coronar*10/19/2017 Cerebrovascular accident (CVA) (HCC) [I63.9] 12/23/2021 [...] Status:Closed by GE WILL on 12/21/[address] [facility] Absolute lymphocyte countOrd ered By: Parker Metzger on 03-15-2023 Lymphocytes Auto (Unsp spec) [#/Vol] 0.80 10*3/uL 0.83-4.51 [facility] Automated lymphocyte count a s percentage of total leukocytesOrdered By: Parkeramira Metzger on 03-15-2023 Lymphocytes/100 WBC Auto (Unsp spec) 8.8 % 19-41 [facility] Basophil percentageOrdered B y: Parker Metzger on 03-15-2023 Basophils/100 WBC (Bld) 0.7 % 0-1 [facility] Bilirubin [Mass/Vol] 0.60 mg/dL 0.20-1.[address] [facility] Comment on above: For patients on eltr ombopag therapy, use of Dimension Beecher TBIL is not recommended. Chloride [Moles/Vol] 107 mmol/L 98-[address] [facility] Eosinophils/100 WBC (Bld) 2.1 % 0-5 [facility] Glucose [Mass/Vol] 110 mg/dL 74-106 [facility] Comment on above: Fasting Glucose resu lt from 100 to 125 mg/dL suggests IMPAIRED HOMEOSTASIS per A.D.A. criteria. Hemoglobin (Bld) [Mass/Vol] 13.1 g/dL 13.0-16.5 [facility] Lactate [Moles/Vol] 1.7 mmol/L 0.4-2.[address] [facility] Monocytes/100 WBC (Bld) 6.8 % 0-10 [facility] Neutrophils (Bld) [#/Vol] 7.4 10*3/uL 2.0-7.7 [facility] Neutrophils/100 WBC (Bld) 80.9 % 47-70 [facility] Potassium [Moles/Vol] 4.0 mmol/L 3.5-5.1 [facility] Protein [Mass/Vol] 7.0 g/dL 6.4-8.2 [facility] Sodium [Moles/Vol] 137 mmol/L 136-145 [facility] WBC (Bld) [#/Vol] 9.1 10*3/uL 4.4-11.0 [facility] Determination of erythrocyte mean corpuscular volume (MCV)Ordered By: Parker Metzger on 03-15-2023 MCV (RBC) [Entitic vol] 100.0 fL 80-94 [facility] Erythrocyte distribution wid th ratioOrdered By: Parker Metzger on 03-15-2023 Erythrocyte distribution width (RBC) [Ratio] 13.2 % 11.6-14.6 [facility] Erythrocyte distribution wid th standard deviationOrdered By: Parkeramira Metzger on 03-15-2023 Erythrocyte distribution width (RBC) [Entitic vol] 48.4 fL 35.1-43.9 [facility] Hematocrit Auto (Bld) [Volum e fraction]Ordered By: Parker Metzger on 03-15-2023 Hematocrit (Bld) [Volume fraction] 42.9 % 40-54 [facility] Immature granulocytes/100 WB C Auto (Bld)Ordered By: Parker Metzger on 03-15-2023 Immature granulocytes/100 WBC (Bld) 0.700 % 0.0-0.9 [facility] Comment on above: IG% - Immature Granu locytes (promyelocytes, myelocytes and metamyelocytes) > 1% indicates that a LEFT SHIFT is Present. Laboratory - Chemistry and C hemistry - challengeOrdered By: Parker Metzger on 03-15-2023 Albumin/Globulin [Mass ratio] 1.0 {ratio} 0.9-2.4 [facility] ALP [Catalytic activity/Vol] 116 U/L 45-117 [facility] ALT [Catalytic activity/Vol] 20 U/L 16-61 [facility] CO2 [Moles/Vol] 28.0 mmol/L 21.0-32.0 [facility] Globulin (S) [Mass/Vol] 3.5 g/dL 2.2-4.2 [facility] Urea nitrogen/Creatinine [Mass ratio] 28.5 mg/mg 10-20 [facility] - Hematology and Cell countsOrdered By: Parkeramira Metzger on 03-15-2023 MCH (RBC) [Entitic mass] 30.5 pg 27.0-32.0 [facility] MCHC (RBC) [Mass/Vol] 30.5 g/dL 32-36 [facility] Nucleated RBC/100 WBC (Bld) [Ratio] 0 % 0-5 [facility] Platelet mean volume (Bld) [Entitic vol] 9.9 fL 6.2-12.0 [facility] Platelets (Bld) [#/Vol] 135 10*3/uL 150-450 [facility] - Microbiology an d Antimicrobial susceptibilityOrdered By: Parker Metzger on 03-15-2023 SARS-CoV-2 (COVID-19) RNA NIURKA+probe Ql (Unsp spec) [facility] No Panel InformationOrdered By: Parkeramira Metzger on 03-15-2023 Estimated Creatinine Clearance Calc 83.26 ml/min [facility] Estimated GFR (MDRD) Amer 131 mL/min >60 [facility] Comment on above: GFR Calc Estimated GFR (MDRD) Non-Af Amer 108 mL/min >60 [facility] Comment on above: Non- GFR Calc RBC Auto (Bld) [#/Vol]Ordere d By: Parker Metzger on 03-15-2023 RBC (Bld) [#/Vol] 4.29 10*6/uL 4.6-6.[address] [facility] Serum or plasma calcium regan urement (mass/volume)Ordered By: Parker Metzger on 03-15-2023 Calcium [Mass/Vol] 8.6 mg/dL 8.5-10.1 [facility] Serum or plasma creatinine m easurement (mass/volume)Ordered By: Parker Metzger on 03-15-2023 Creatinine [Mass/Vol] 0.74 mg/dL 0.70-1.30 [facility] Comment on above: The validity of the calculated GFR & GFRAA in patients over 70 years has not been determined. Clinical correlation is essential. Serum or plasma urea nitroge n measurement (mass/volume)Ordered By: Parker Metzger on 03-15-2023 Urea nitrogen [Mass/Vol] 21 mg/dL 7-18 [facility] Thin prep Papanicolaou smear with manual screeningOrdered By: Parker Metzger on 03-15-2023 Thin prep Papanicolaou smear with manual screening 3.5 g/dL 3.2-5.0 [facility] Thin prep Papanicolaou smear with manual screening 11 U/L 15-37 [facility] Thin prep Papanicolaou smear with manual screening 2 5-15 [facility] XR Chest PA and Lateralon IMPRESSION: New atelectasis and/or early infiltrate in the right middle lobe. 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 Follow-up to document resolution Shell Trim Operator: PSCDanyel Transcribe Date/Time: May 24 2022 1:40P Dictated by : SATISH PATEL MD This examination was interpreted and the report reviewed and electronically signed by: SATISH PATEL MD on May 24 2022 1:46PM EST [facility] XR Chest PA and LateralOrder ed By: Ccf Provider on 05-24-2022 [facility] Comprehensive metabolic 2000 panelon 05-22-2022 Albumin [Mass/Vol] 4.2 g/dL 3.9 - 4.9 g/dL [facility] ALP [Catalytic activity/Vol] 120 U/L High 38 - 113 U/L [facility] ALT [Catalytic activity/Vol] 9 U/L Low 10 - 54 U/L [facility] Anion gap [Moles/Vol] 12 mmol/L 9 - 18 mmol/L [facility] AST [Catalytic activity/Vol] 17 U/L 14 - 40 U/L [facility] Bilirubin [Mass/Vol] 1.1 mg/dL 0.2 - 1 .3 mg/dL [facility] Calcium [Mass/Vol] 10.0 mg/dL 8.5 - 10. 2 mg/dL [facility] Chloride [Moles/Vol] 102 mmol/L 97 - 10 5 mmol/L [facility] CO2 [Moles/Vol] 28 mmol/L 22 - 30 mmol/L [facility] Creatinine [Mass/Vol] 0.83 mg/dL 0.73 - 1.22 mg/dL [facility] Estimated Glomerular Filtration Rate 87 mL/min/1.73m >=60 mL/min/1.73m [facility] Glucose [Mass/Vol] 119 mg/dL High 74 - 99 mg/dL [facility] Potassium [Moles/Vol] 4.8 mmol/L 3.7 - 5.1 mmol/L [facility] Protein [Mass/Vol] 7.3 g/dL 6.3 - 8.0 g/dL [facility] Sodium [Moles/Vol] 142 mmol/L 136 - 144 mmol/L [facility] Urea nitrogen [Mass/Vol] 26 mg/dL High 9 - 24 mg/d L [facility] Lipid 1996 panelon 3 Cholesterol [Mass/Vol] 115 mg/dL <200 mg/dL [facility] Cholesterol in HDL [Mass/Vol] 39 mg/dL Low >39 mg/dL [facility] Cholesterol in LDL [Mass/Vol] 60 mg/dL <100 mg/dL [facility] Cholesterol in LDL/Cholesterol in HDL [Mass ratio] 1.54 {ratio} <2.54 [facility] Cholesterol in VLDL [Mass/Vol] 16 mg/dL <30 mg/dL [facility] Cholesterol non HDL [Mass/Vol] 76 mg/dL <130 mg/dL [facility] Cholesterol.total/Choles terol in HDL [Mass ratio] 2.95 {ratio} <5.10 [facility] Fasting Time 0 hrs [facility] Triglyceride [Mass/Vol] 80 mg/dL <150 mg/dL [facility] TSH BLDon 05-22-2022 TSH Qn 1.440 m[IU]/L 0.270 - 4.200 mIU/L [facility] XR Chest PA and Lateralon Radiology Study observation (narrative) [facility] CBC panel Auto (Bld)on 05-21 Erythrocyte distribution width (RBC) [Ratio] 13.4 % 11.5 - 15.0 % [facility] Hematocrit (Bld) [Volume fraction] 50.5 % 39.0 - 51.0 % [facility] Hemoglobin (Bld) [Mass/Vol] 15.9 g/dL 13.0 - 17.0 g/dL [facility] MCH (RBC) [Entitic mass] 30.3 pg 26. 0 - 34.0 pg [facility] MCHC (RBC) [Mass/Vol] 31.5 g/dL 30.5 - 36.0 g/dL [facility] MCV (RBC) [Entitic vol] 96.4 fL 80.0 - 100.0 fL [facility] Nucleated RBC (Bld) [#/Vol] <0.01 k/uL [facility] Platelet mean volume (Bld) [Entitic vol] 10.2 fL 9.0 - 12.7 fL [facility] Platelets (Bld) [#/Vol] 166 10*3/uL 150 - 400 k/uL [facility] RBC (Bld) [#/Vol] 5.24 10*6/uL 4.20 - 6.0 0 m/uL [facility] WBC (Bld) [#/Vol] 9.40 10*3/uL 3.70 - 11. 00 k/uL [facility] Absolute lymphocyte counton 12-18-2021 Lymphocytes Auto (Unsp spec) [#/Vol] 0.33 10*3/uL 0.83-4.51 [facility] Work Phone: Basophil percentageon 2021 Basophils/100 WBC (Bld) 0.1 % 0-1 [facility] Work Phone: Bilirubin [Mass/Vol] 0.50 mg/dL 0.20-1.[address] [facility] Work Phone: Comment on above: For patients on eltr ombopag therapy, use of Dimension Beecher TBIL is not recommended. Chloride [Moles/Vol] 101 mmol/L 98-[address] [facility] Work Phone: Eosinophils/100 WBC (Bld) 0.0 % 0-5 [facility] Work Phone: Glucose [Mass/Vol] 173 mg/dL 74-106 [facility] Work Phone: Comment on above: Fasting Glucose resu lt greater than or equal to 126 mg/dL suggests DIABETES MELLITUS per A.D.A. criteria. Neutrophils (Bld) [#/Vol] 13.8 10*3/uL 2.0-7.7 [facility] Work Phone: Neutrophils/100 WBC (Bld) 92.7 % 47-70 [facility] Work Phone: Potassium [Moles/Vol] 4.1 mmol/L 3.5-5.1 [facility] Work Phone: [phone] Protein [Mass/Vol] 6.9 g/dL 6.4-8.2 [facility] Work Phone: Sodium [Moles/Vol] 138 mmol/L 136-145 [facility] Work Phone: WBC (Bld) [#/Vol] 14.9 10*3/uL 4.4-11.[address] [facility] Work Phone: [phone] Blood erythrocytes count (nu mber/volume)on 12-18-2021 RBC (Bld) [#/Vol] 4.57 10*6/uL 4.6-6.[address] [facility] Work Phone: Blood hemoglobin measurement (mass/volume)on 12-18-2021 Hemoglobin (Bld) [Mass/Vol] 14.3 g/dL 13.0-16.5 [facility] Work Phone: Blood lymphocytes/100 leukoc yteson 12-18-2021 Lymphocytes/100 WBC (Bld) 2.2 % 19-41 [facility] Work Phone: Blood monocytes/100 leukocyt eson 12-18-2021 Monocytes/100 WBC (Bld) 4.1 % 0-10 [facility] Work Phone: Blood platelet mean volumeon 12-18-2021 Platelet mean volume (Bld) [Entitic vol] 8.6 fL 6.2-12.0 [facility] Work Phone: Determination of erythrocyte mean corpuscular volume (MCV)on 12-18-2021 MCV (RBC) [Entitic vol] 94.1 fL 80-94 [facility] Work Phone: Hematocrit Auto (Bld) [Volum e fraction]on 12-18-2021 Hematocrit (Bld) [Volume fraction] 43.0 % 40-54 [facility] Work Phone: Laboratory - Chemistry and C hemistry - challengeon 12-18-2021 ALP [Catalytic activity/Vol] 155 U/L 45-117 [facility] Work Phone: ALT [Catalytic activity/Vol] 267 U/L 16-61 [facility] Work Phone: CO2 [Moles/Vol] 32.0 mmol/L 21.0-32.0 [facility] Work Phone: Globulin (S) [Mass/Vol] 4.3 g/dL 2.2-4.2 [facility] Work Phone: Urea nitrogen/Creatinine [Mass ratio] 60.2 mg/mg 10-20 [facility] Work Phone: Laboratory - Hematology and Cell countson 12-18-2021 Erythrocyte distribution width (RBC) [Entitic vol] 44.7 fL 35.1-43.9 [facility] Work Phone: Erythrocyte distribution width (RBC) [Ratio] 13.0 % 11.6-14.6 [facility] Work Phone: Immature granulocytes/100 WBC (Bld) 0.900 % 0.0-0.9 [facility] Work Phone: Comment on above: IG% - Immature Granu locytes (promyelocytes, myelocytes and metamyelocytes) > 1% indicates that a LEFT SHIFT is Present. MCH (RBC) [Entitic mass] 31.3 pg 27.0-32.0 [facility] Work Phone: Nucleated RBC/100 WBC (Bld) [Ratio] 0 % 0-5 [facility] Work Phone: MCHC Auto (RBC) [Mass/Vol]on 12-18-2021 MCHC (RBC) [Mass/Vol] 33.3 g/dL 32-36 [facility] Work Phone: No Panel Informationon 12-18 Estimated Creatinine Clearance Calc 60.66 ml/min [facility] Work Phone: Estimated GFR (MDRD) Amer 166 mL/min >60 [facility] Work Phone: Comment on above: GFR Calc Estimated GFR (MDRD) Non-Af Amer 138 mL/min >60 [facility] Work Phone: Comment on above: Non- GFR Calc Platelets bldon 12-18-2021 Platelets (Bld) [#/Vol] 226 10*3/uL 150-450 [facility] Work Phone: Serum or plasma albumin regan urement (mass/volume)on 12-18-2021 Albumin [Mass/Vol] 2.6 g/dL 3.2-5.0 [facility] Work Phone: Serum or plasma albumin/glob ulin mass ratioon 12-18-2021 Albumin/Globulin [Mass ratio] 0.6 {ratio} 0.9-2.4 [facility] Work Phone: Serum or plasma calcium regan urement (mass/volume)on 12-18-2021 Calcium [Mass/Vol] 8.7 mg/dL 8.5-10.1 [facility] Work Phone: Serum or plasma creatinine m easurement (mass/volume)on 12-18-2021 Creatinine [Mass/Vol] 0.60 mg/dL 0.70-1.30 [facility] Work Phone: Comment on above: The validity of the calculated GFR & GFRAA in patients over 70 years has not been determined. Clinical correlation is essential. Serum or plasma urea nitroge n measurement (mass/volume)on 12-18-2021 Urea nitrogen [Mass/Vol] 36 mg/dL 7-18 [facility] Work Phone: Thin prep Papanicolaou smear with manual screeningon 12-18-2021 Thin prep Papanicolaou smear with manual screening 138 U/L 15-37 [facility] Work Phone: Thin prep Papanicolaou smear with manual screening 5 5-15 [facility] Work Phone: Blood manual differential co mment interpretation (narrative result)on 12-15-2021 Manual differential comment Afshin (Bld) [Interp] SCANNED [facility] Work Phone: Laboratory - Chemistry and C hemistry - challengeon 12-15-2021 Natriuretic peptide B (Bld) [Mass/Vol] 163.1 pg/mL 0-100 [facility] Work Phone: No Panel Informationon 12-15 Thyroid Stimulating Hormone (TSH) 0.52 uIU/mL 0.358-3.74 [facility] Work Phone: Absolute lymphocyte counton 12-14-2021 Lymphocytes Auto (Unsp spec) [#/Vol] 0.43 10*3/uL 0.83-4.51 [facility] Work Phone: Basophil percentageon 2021 Basophils/100 WBC (Bld) 0.2 % 0-1 [facility] Work Phone: Chloride [Moles/Vol] 101 mmol/L 98-[address] [facility] Work Phone: Eosinophils/100 WBC (Bld) 0.0 % 0-5 [facility] Work Phone: Glucose [Mass/Vol] 108 mg/dL 74-106 [facility] Work Phone: Comment on above: Fasting Glucose resu lt from 100 to 125 mg/dL suggests IMPAIRED HOMEOSTASIS per A.D.A. criteria. Neutrophils (Bld) [#/Vol] 14.8 10*3/uL 2.0-7.7 [facility] Work Phone: Neutrophils/100 WBC (Bld) 90.8 % 47-70 [facility] Work Phone: Potassium [Moles/Vol] 4.1 mmol/L 3.5-5.1 [facility] Work Phone: [phone] Sodium [Moles/Vol] 135 mmol/L 136-145 [facility] Work Phone: WBC (Bld) [#/Vol] 16.3 10*3/uL 4.4-11.[address] [facility] Work Phone: Blood erythrocytes count (nu mber/volume)on 12-14-2021 RBC (Bld) [#/Vol] 4.32 10*6/uL 4.6-6.[address] [facility] Work Phone: Blood hemoglobin measurement (mass/volume)on 12-14-2021 Hemoglobin (Bld) [Mass/Vol] 13.3 g/dL 13.0-16.5 [facility] Work Phone: [phone] Blood lymphocytes/100 leukoc yteson 12-14-2021 Lymphocytes/100 WBC (Bld) 2.6 % 19-41 [facility] Work Phone: Blood monocytes/100 leukocyt eson 12-14-2021 Monocytes/100 WBC (Bld) 5.6 % 0-10 [facility] Work Phone: Blood platelet mean volumeon 12-14-2021 Platelet mean volume (Bld) [Entitic vol] 8.8 fL 6.2-12.0 [facility] Work Phone: Determination of erythrocyte mean corpuscular volume (MCV)on 12-14-2021 MCV (RBC) [Entitic vol] 95.1 fL 80-94 [facility] Work Phone: Hematocrit Auto (Bld) [Volum e fraction]on 12-14-2021 Hematocrit (Bld) [Volume fraction] 41.1 % 40-54 [facility] Work Phone: Laboratory - Chemistry and C hemistry - challengeon 12-14-2021 CO2 [Moles/Vol] 30.0 mmol/L 21.0-32.0 [facility] Work Phone: Urea nitrogen/Creatinine [Mass ratio] 37.1 mg/mg 10-20 [facility] Work Phone: Laboratory - Hematology and Cell countson 12-14-2021 Erythrocyte distribution width (RBC) [Entitic vol] 47.7 fL 35.1-43.9 [facility] Work Phone: Erythrocyte distribution width (RBC) [Ratio] 13.5 % 11.6-14.6 [facility] Work Phone: Immature granulocytes/100 WBC (Bld) 0.800 % 0.0-0.9 [facility] Work Phone: Comment on above: IG% - Immature Granu locytes (promyelocytes, myelocytes and metamyelocytes) > 1% indicates that a LEFT SHIFT is Present. MCH (RBC) [Entitic mass] 30.8 pg 27.0-32.0 [facility] Work Phone: Nucleated RBC/100 WBC (Bld) [Ratio] 0 % 0-5 [facility] Work Phone: MCHC Auto (RBC) [Mass/Vol]on 12-14-2021 MCHC (RBC) [Mass/Vol] 32.4 g/dL 32-36 [facility] Work Phone: No Panel Informationon 12-14 Troponin I High Sensitivity 343 pg/mL 3.0-78.0 [facility] Work Phone: Comment on above: Critical Result(s) C alled at: 22:53:05 12/14/2021 by: Lacie Herrera. Results read back by same. Please Note: New Test Units and Gender Specific Reference Ranges. For more information see Policy Stat Procedure Beecher High Sensitivity Troponin (TNIH) and attachments. D-Dimer Quantitative (PE/DVT) 1.54 FEU/ug/m 0.27-0.49 [facility] Work Phone: Comment on above: D-Dimer ELEVATED (>0 .49): Additional studies and clinicalassessments are indicated to conclude diagnosis of:Deep Vein Thrombosis (DVT) or Pulmonary Embolism (PE)CRITICAL VALUE VERIFIED. CALLED TO ROSCOE BRIZUELA12/14/21 190 Samson Walters.RESULTS READ BACK BY SAME . Estimated Creatinine Clearance Calc 62.53 ml/min [facility] Work Phone: Estimated GFR (MDRD) Amer 95 mL/min >60 [facility] Work Phone: Comment on above: GFR Calc Estimated GFR (MDRD) Non-Af Amer 79 mL/min >60 [facility] Work Phone: Comment on above: Non- GFR Calc Troponin I High Sensitivity 522 pg/mL 3.0-78.0 [facility] Work Phone: Comment on above: Critical Result(s) C alled at: 16:42:10 12/14/2021 by: [facility] Results read back by same. Please Note: New Test Units and Gender Specific Reference Ranges. For more information see Policy Stat Procedure Beecher High Sensitivity Troponin (TNIH) and attachments. Platelets bldon 12-14-2021 Platelets (Bld) [#/Vol] 199 10*3/uL 150-450 [facility] Work Phone: Serum or plasma calcium regan urement (mass/volume)on 12-14-2021 Calcium [Mass/Vol] 9.2 mg/dL 8.5-10.1 [facility] Work Phone: Serum or plasma creatinine m easurement (mass/volume)on 12-14-2021 Creatinine [Mass/Vol] 0.97 mg/dL 0.70-1.30 [facility] Work Phone: Comment on above: The validity of the calculated GFR & GFRAA in patients over 70 years has not been determined. Clinical correlation is essential. Serum or plasma urea nitroge n measurement (mass/volume)on 12-14-2021 Urea nitrogen [Mass/Vol] 36 mg/dL 08-24 [facility] Work Phone: Thin prep Papanicolaou smear with manual screeningon 12-14-2021 Thin prep Papanicolaou smear with manual screening 4 06-21 [facility] Work Phone: NM CARDIAC PERF STRESS/PHARM on [...] 60 minutes later. See administered doses below. [facility] Date of service: 06/19/2018 9:36:42 AM Ordering Physician: Shayne Cedeño Requesting Physician: Indication: Assessment for known CAD. Interpreting physician: Rosalino Murray DO Patient History: History of hypertension, dyslipidemia, coronary heart disease and Prior smoker. Medications currently taking are diuretic, anti-depressants, B-karis, statins, ASA, Ca Kairs and plavix. Previous Cardiovascular Interventions: CABG (1993 [...] normal sinus rhythm. Stress complications: none. Final Shell Trim Operator: LAURA Transcribe Date/Time: Jun 19 2018 9:36A Dictated by : ROSALINO MURRAY DO This examination was interpreted and the report reviewed and electronically signed by: ROSALINO MURRAY DO on Jun 19 2018 4:55PM EST [id number] [facility] NUCLEAR STRESS LEXISCAN (CAR D)on 06-19-2018 NUCLEAR STRESS LEXISCAN (CARD) NAME : ARTURO PEDERSEN PID : [id number] : 1940 Gender : Male Race : ORD : [id number] Procedure Date : Jun 19 2018 10:44:58 Edit Date : Jun 22 2018 10:58:35 Conclusions:PLEASE REFER TO IMAGING SECTION IN [facility] FOR COMPLETE INTERPRETATION OF STRESS TEST AND MYOCARDIAL PERFUSION IMAGING Protocol Name : JOANN Time In Exercise Phase : 00:06:00 Max. Systolic BP : 197 mmHg Max Diastolic BP : 60 mmHg Max Heart Rate : 71 BPM Max Predicted Heart Rate : 142 BPM Recovery ECG Response (OLD) : Reason For Termination : End of Protocol Test Reason : Pre-Op Evaluation Location :[facility] Overread By : ROSALINO MURRAY D.O. Edited By : Shraddha Cha Referred By : SHAYNE CEDEÑO Acquired by : Shraddha Cha [facility] ARTURO PEDERSEN ([id number]) 1940 M Date Time Provider Department 06/16/18 [...] Fully Assessed Reason for Visit: Reminder Call [2776] Prescriptions as of 06/16/2018 Sig: POTASSIUM CHLORIDE [...] assay SARS-CoV-2 (COVID-19) Ag IA.rapid Ql (Resp) [facility] Work Phone: Legionella pneumophila ag Legionella Antigen Legionella Antigen [facility] Work Phone: No Panel Information Streptococcus pneumoniae Antigen (M [facility] Work Phone: Vital Signs Date Time Vital Sign Value Performing Clinician Facility 09-12-2024 15:56-0400 Body temperature 97.8 [degF] Dr. Shayne Zaidi MD Work Phone: [facility] 09-12-2024 15:56-0400 Diastolic blood pressure 86 mm[Hg] Dr. Shayne Zaidi MD Work Phone: [facility] 09-12-2024 15:56-0400 Heart rate 102 /min Dr. Shayne Zaidi MD Work Phone: [facility] 09-12-2024 15:56-0400 Inhaled oxygen flow rate 3 L/min Dr. Shayne Zaidi MD Work Phone: [facility] 09-12-2024 15:56-0400 Respiratory rate 18 /min Dr. Shayne Zaidi MD Work Phone: [facility] 09-12-2024 15:56-0400 SaO2% (BldA) [Mass fraction] 96 % Dr. Shayne Zaidi MD Work Phone: [facility] 09-12-2024 15:56-0400 Systolic blood pressure 142 mm[Hg] Dr. Shayne Zaidi MD Work Phone: [facility] 09-12-2024 06:00-0400 Body mass index (BMI) [Ratio] 28.1 kg/m2 Dr. Shayne Zaidi MD Work Phone: [facility] 09-12-2024 06:00-0400 Body weight 91.[address] Shayne Zaidi MD Work Phone: [facility] 09-10-2024 14:33-0400 Body height 180.[address] Shayne Zaidi MD Work Phone: [facility] 07-13-2024 16:53-0400 Diastolic blood pressure 76 mm[Hg] Paddy Zaidi MD Work Phone: [facility] 07-13-2024 16:53-0400 Heart rate 98 /min Paddy Zaidi MD Work Phone: [facility] 07-13-2024 16:53-0400 Systolic blood pressure 125 mm[Hg] Paddy Zaidi MD Work Phone: [facility] 03-27-2024 13:52-0500 Diastolic blood pressure 80 mm[Hg] Flavia Click CASKET LINER.AUTO CAMP ATTENDANT Work Phone: [facility] 03-27-2024 13:52-0500 Heart rate 90 /min Flavia Click CASKET LINER.AUTO CAMP ATTENDANT Work Phone: [facility] 03-27-2024 13:52-0500 Respiratory rate 18 /min Flavia Click CASKET LINER.AUTO CAMP ATTENDANT Work Phone: [facility] 03-27-2024 13:52-0500 SaO2% (BldA) [Mass fraction] 95 % Flavia Click CASKET LINER.AUTO CAMP ATTENDANT Work Phone: [facility] 03-27-2024 13:52-0500 Systolic blood pressure 122 mm[Hg] Flavia Click CASKET LINER.AUTO CAMP ATTENDANT Work Phone: [facility] 03-27-2024 13:47-0500 Heart rate 107 /min Pulm Wstr Work Phone: [facility] 03-27-2024 13:47-0500 SaO2% (BldA) [Mass fraction] 96 % Pulm Wstr Work Phone: [facility] Comment on above: RA resting 03-05-2024 15:07-0500 Body height 171.5 cm Raina Huynh MD Work Phone: [facility] 03-05-2024 15:07-0500 Body mass index (BMI) [Ratio] 32.69 kg/m2 Raina Huynh MD Work Phone: [facility] 03-05-2024 15:07-0500 Body weight 96.16 kg Raina Huynh MD Work Phone: [facility] 03-05-2024 15:07-0500 Diastolic blood pressure 68 mm[Hg] Raina Huynh MD Work Phone: [facility] 03-05-2024 15:07-0500 Heart rate 112 /min Raina Huynh MD Work Phone: [facility] 03-05-2024 15:07-0500 Respiratory rate 14 /min Raina Huynh MD Work Phone: [facility] 03-05-2024 15:07-0500 SaO2% (BldA) [Mass fraction] 96 % Raina Huynh MD Work Phone: [facility] 03-05-2024 15:07-0500 Systolic blood pressure 122 mm[Hg] Raina Huynh MD Work Phone: [facility] 03-05-2024 14:42-0500 Body height 171.5 cm Pulm Wstr Work Phone: [facility] 03-05-2024 14:42-0500 Body mass index (BMI) [Ratio] 32.69 kg/m2 Pulm Wstr Work Phone: [facility] 03-05-2024 14:42-0500 Body weight 96.16 kg Pulm Wstr Work Phone: [facility] 03-05-2024 14:42-0500 Heart rate 112 /min Pulm Wstr Work Phone: [facility] 03-05-2024 14:42-0500 Respiratory rate 14 /min Pulm Wstr Work Phone: [facility] 03-05-2024 14:42-0500 SaO2% (BldA) [Mass fraction] 96 % Pulm Wstr Work Phone: [facility] Comment on above: 2L pulse dose 02-14-2024 14:06-0500 Diastolic blood pressure 78 mm[Hg] Hever Tanya CASKET LINER.AUTO CAMP ATTENDANT Work Phone: [facility] 02-14-2024 14:06-0500 Heart rate 96 /min Hever Tanya CASKET LINER.AUTO CAMP ATTENDANT Work Phone: [facility] 02-14-2024 14:06-0500 Systolic blood pressure 132 mm[Hg] Hever Tanya CASKET LINER.AUTO CAMP ATTENDANT Work Phone: [facility] 06-07-2023 16:30-0400 Body height 180.3 cm Paddy Zaidi MD Work Phone: [facility] 06-07-2023 16:30-0400 Body mass index (BMI) [Ratio] 30.15 kg/m2 Paddy Zaidi MD Work Phone: [facility] 06-07-2023 16:30-0400 Body weight 98 kg Paddy Zaidi MD Work Phone: [facility] 06-07-2023 16:30-0400 Diastolic blood pressure 80 mm[Hg] Paddy Zaidi MD Work Phone: [facility] 06-07-2023 16:30-0400 Heart rate 82 /min Paddy Zaidi MD Work Phone: [facility] 06-07-2023 16:30-0400 SaO2% (BldA) [Mass fraction] 95 % Paddy Zaidi MD Work Phone: [facility] 06-07-2023 16:30-0400 Systolic blood pressure 138 mm[Hg] Paddy Zaidi MD Work Phone: [facility] 03-15-2023 15:52-0500 Diastolic blood pressure 100 mm[Hg] [facility] 03-15-2023 15:52-0500 Heart rate 106 /min [facility] 03-15-2023 15:52-0500 Respiratory rate 22 /min [facility] 03-15-2023 15:52-0500 SaO2% (BldA) [Mass fraction] 95 % [facility] 03-15-2023 15:52-0500 Systolic blood pressure 159 mm[Hg] [facility] 03-15-2023 14:10-0500 Body mass index (BMI) [Ratio] 29.9 kg/m2 [facility] 03-15-2023 14:10-0500 Body weight 97.4 kg [facility] 03-15-2023 13:17-0500 Body height 180.34 cm [facility] 03-15-2023 13:17-0500 Body temperature 98.5 [degF] [facility] 09-22-2022 22:00-0400 Body mass index (BMI) [Ratio] 27.9 kg/m2 [facility] 09-22-2022 22:00-0400 Body weight 91 kg [facility] 09-22-2022 21:47-0400 Heart rate 69 /min [facility] 09-22-2022 21:47-0400 Respiratory rate 16 /min [facility] 09-22-2022 21:47-0400 SaO2% (BldA) [Mass fraction] 97 % [facility] 09-22-2022 18:34-0400 Body height 180.34 cm [facility] 09-22-2022 18:34-0400 Body temperature 97.3 [degF] [facility] 09-22-2022 18:34-0400 Diastolic blood pressure 65 mm[Hg] [facility] 09-22-2022 18:34-0400 Systolic blood pressure 149 mm[Hg] [facility] 06-02-2022 12:58-0400 Body height 180.3 cm Hever Pamela CASKET LINER.AUTO CAMP ATTENDANT Work Phone: [facility] 06-02-2022 12:58-0400 Body weight 92.99 kg Hever Pamela CASKET LINER.AUTO CAMP ATTENDANT Work Phone: [facility] 06-02-2022 12:58-0400 Diastolic blood pressure 68 mm[Hg] Hever Pamela CASKET LINER.AUTO CAMP ATTENDANT Work Phone: [facility] 06-02-2022 12:58-0400 Heart rate 84 /min Hever Pamela CASKET LINER.AUTO CAMP ATTENDANT Work Phone: [facility] 06-02-2022 12:58-0400 SaO2% (BldA) [Mass fraction] 97 % Hever Pamela CASKET LINER.AUTO CAMP ATTENDANT Work Phone: [facility] 06-02-2022 12:58-0400 Systolic blood pressure 134 mm[Hg] Hever Pamela CASKET LINER.AUTO CAMP ATTENDANT Work Phone: [facility] 05-21-2022 16:12-0400 Body height 180.3 cm Paddy Zaidi MD Work Phone: [facility] 05-21-2022 16:12-0400 Body temperature 98.4 [degF] Paddy Zaidi MD Work Phone: [facility] 05-21-2022 16:12-0400 Body weight 88.22 kg Paddy Zaidi MD Work Phone: [facility] 05-21-2022 16:12-0400 Diastolic blood pressure 83 mm[Hg] Paddy Zaidi MD Work Phone: [facility] 05-21-2022 16:12-0400 Heart rate 71 /min Paddy Zaidi MD Work Phone: [facility] 05-21-2022 16:12-0400 Respiratory rate 16 /min Paddy Zaidi MD Work Phone: [facility] 05-21-2022 16:12-0400 SaO2% (BldA) [Mass fraction] 93 % Paddy Zaidi MD Work Phone: [facility] 05-21-2022 16:12-0400 Systolic blood pressure 137 mm[Hg] Paddy Zaidi MD Work Phone: [facility] 12-28-2021 09:17-0500 Body mass index (BMI) [Ratio] 27.8 kg/m2 Dr. Shayne Zaidi Work Phone: [facility] Work Phone: 12-28-2021 09:17-0500 Body temperature 97 [degF] Dr. Shayne Zaidi Work Phone: [facility] Work Phone: 12-28-2021 09:17-0500 Body weight 90.[address] Shayne Zaidi Work Phone: [facility] Work Phone: 12-28-2021 09:17-0500 Diastolic blood pressure 76 mm[Hg] Dr. Shayne Zaidi Work Phone: [facility] Work Phone: 12-28-2021 09:17-0500 Heart rate 72 /min Dr. Shayne Zaidi Work Phone: [facility] Work Phone: 12-28-2021 09:17-0500 Respiratory rate 18 /min Dr. Shayne Zaidi Work Phone: [facility] Work Phone: 12-28-2021 09:17-0500 SaO2% (BldA) [Mass fraction] 94 % Dr. Shayne Zaidi Work Phone: [facility] Work Phone: 12-28-2021 09:17-0500 Systolic blood pressure 140 mm[Hg] Dr. Sahyne Zaidi Work Phone: [facility] Work Phone: 12-23-2021 11:19-0500 Body height 180.3 cm Paddy Zaidi MD Work Phone: [facility] 12-23-2021 11:19-0500 Body temperature 98.4 [degF] Paddy Zaidi MD Work Phone: [facility] 12-23-2021 11:19-0500 Body weight 87.09 kg Paddy Zaidi MD Work Phone: [facility] 12-23-2021 11:19-0500 Diastolic blood pressure 54 mm[Hg] Paddy Zaidi MD Work Phone: [facility] 12-23-2021 11:19-0500 Heart rate 87 /min Paddy Zaidi MD Work Phone: [facility] 12-23-2021 11:19-0500 SaO2% (BldA) [Mass fraction] 87 % Paddy Zaidi MD Work Phone: [facility] 12-23-2021 11:19-0500 Systolic blood pressure 91 mm[Hg] Paddy Zaidi MD Work Phone: [facility] 12-18-2021 15:00-0500 Heart rate 95 /min Dr. Shayne Zaidi Work Phone: [facility] Work Phone: 12-18-2021 14:55-0500 Body temperature 97.5 [degF] Dr. Shayne Zaidi Work Phone: [facility] Work Phone: 12-18-2021 14:55-0500 Diastolic blood pressure 88 mm[Hg] Dr. Shayne Zaidi Work Phone: [facility] Work Phone: 12-18-2021 14:55-0500 Inhaled oxygen flow rate 2 L/min Dr. Shayne Zaidi Work Phone: [facility] Work Phone: 12-18-2021 14:55-0500 Respiratory rate 16 /min Dr. Shayne Zaidi Work Phone: [facility] Work Phone: 12-18-2021 14:55-0500 SaO2% (BldA) [Mass fraction] 96 % Dr. Shayne Zaidi Work Phone: [facility] Work Phone: 12-18-2021 14:55-0500 Systolic blood pressure 128 mm[Hg] Dr. Shayne Zaidi Work Phone: [facility] Work Phone: 12-16-2021 15:05-0500 Body height 180.[address] Shayne Zaidi Work Phone: [facility] Work Phone: 12-16-2021 15:05-0500 Body weight 88.[address] Shayne Zaidi Work Phone: [facility] Work Phone: 12-14-2021 18:22-0500 Body mass index (BMI) [Ratio] 27.1 kg/m2 Dr. Shayne Zaidi Work Phone: [facility] Work Phone: 12-14-2021 17:51-0500 Diastolic blood pressure 84 mm[Hg] Dr. Shayne Zaidi Work Phone: [facility] Work Phone: 12-14-2021 17:51-0500 Heart rate 101 /min Dr. Shayne Zaidi Work Phone: [facility] Work Phone: 12-14-2021 17:51-0500 Inhaled oxygen flow rate 2 L/min Dr. Shayne Zaidi Work Phone: [facility] Work Phone: 12-14-2021 17:51-0500 Respiratory rate 28 /min Dr. Shayne Zaidi Work Phone: [facility] Work Phone: 12-14-2021 17:51-0500 SaO2% (BldA) [Mass fraction] 93 % Dr. Shayne Zaidi Work Phone: [facility] Work Phone: 12-14-2021 17:51-0500 Systolic blood pressure 142 mm[Hg] Dr. Shayne Zaidi Work Phone: [facility] Work Phone: 12-14-2021 17:05-0500 Body temperature 98.1 [degF] Dr. Shayne Zaidi Work Phone: [facility] Work Phone: 12-14-2021 15:17-0500 Body height 180.[address] Shayne Zaidi Work Phone: [facility] Work Phone: 12-14-2021 15:17-0500 Body mass index (BMI) [Ratio] 28.3 kg/m2 Dr. Shayne Zaidi Work Phone: [facility] Work Phone: 12-14-2021 15:17-0500 Body weight 92.[address] Shayne Zaidi Work Phone: [facility] Work Phone: 06-22-2021 13:25-0400 Diastolic blood pressure 80 mm[Hg] Hever Pamela CASKET LINER.AUTO CAMP ATTENDANT Work Phone: [facility] 06-22-2021 13:25-0400 Systolic blood pressure 138 mm[Hg] Hever Pamela CASKET LINER.AUTO CAMP ATTENDANT Work Phone: [facility] 06-22-2021 12:58-0400 Body height 180.3 cm Hever Pamela CASKET LINER.AUTO CAMP ATTENDANT Work Phone: [facility] 06-22-2021 12:58-0400 Body weight 88.36 kg Hever Pamela CASKET LINER.AUTO CAMP ATTENDANT Work Phone: [facility] 06-22-2021 12:58-0400 Heart rate 65 /min Hever Santiago CASKET LINER.AUTO CAMP ATTENDANT Work Phone: [facility] Encounters Encounter Date Encounter Type Care Provider Facility Start: 09-19-2024 ambulatory Aayush Sibley Facilit y:[facility] Start: 09-11-2024 Non-patient / Non-visit Dr. Aayush Mills DO [facility] Work Phone: Start: 09-11-2024 Non-patient / Non-visit [facility] Haynes [facility] Start: 09-10-2024 End: 09-10-2024 ambulatory Sera Kline RN [employer] Comment on above: MURIEL BENITES RN ( ED Utilization review per request of eula Saab) Start: 09-10-2024 Non-patient / Non-visit Dr. Haynes [facility] [place] operated [facility] Start: 09-10-2024 ambulatory [facility] Facility:[facility] Start: 09-10-2024 End: 09-12-2024 Evaluation and management of inpatient Dr. Aayush Sibley DO [facility] Work Phone: Start: 09-09-2024 End: 09-09-2024 Emergency department patient visit ARTURO STEFAN NG Facility:[facility] Start: 09-08-2024 End: 09-08-2024 ambulatory Yudelka Harris RN NURSE [employer] ENGINEERING TECHNICIAN Comment on above: Patient Update Start: 09-05-2024 End: 09-05-2024 Telephone encounter Sudha Noe MD Work Phone: Cardiology Comment on above: Appointment Start: 08-14-2024 End: 08-14-2024 Refill Paddy Zaidi MD Work Phone: [facility] Comment on above: Refill Request Start: 07-23-2024 End: 07-23-2024 Refill Hever Martínez APRN.AUTO CAMP ATTENDANT Work Phone: [facility] Comment on above: Refill Request Start: 07-13-2024 End: 07-13-2024 ambulatory PADDY ZAIDI Facility:[facility] Start: 07-13-2024 End: 07-13-2024 Office outpatient visit 25 minutes Paddy Zaidi MD Work Phone: [facility] Comment on above: Oxygen dependent (Pr imary Dx); Atherosclerotic cardiovascular disease; Anxiety attack; Leg swelling; Adjustment disorder with mixed anxiety and depressed mood; PAD (peripheral artery disease); Acquired hypothyroidism; Pure hypercholesterolemia; Idiopathic peripheral neuropathy; Atherosclerosis of [place] coronary artery of [place] heart without angina pectoris Start: 07-13-2024 End: 07-13-2024 Telephone encounter Flavia Smith APRN.AUTO CAMP ATTENDANT Work Phone: Pulmonary Medicine Start: 07-12-2024 End: 07-16-2024 Refill Paddy Zaidi MD Work Phone: [facility] Comment on above: Refill Request Start: 07-03-2024 End: 09-02-2024 Follow-up encounter Hever Martínez APRN.AUTO CAMP ATTENDANT Work Phone: [facility] Start: 06-29-2024 End: 06-29-2024 ambulatory HEVER MARTÍNEZ Facility:[facility] Start: 06-29-2024 End: 08-29-2024 Follow-up encounter Georgiana Valdivia APRN.AUTO CAMP ATTENDANT Work Phone: [facility] Comment on above: Results Start: 06-29-2024 End: 06-29-2024 ambulatory FLAVIA SMITH Facility:[facility] Start: 06-18-2024 End: 06-18-2024 ambulatory Brayan Stallworth RN Work Phone: [employer] Comment on above: Population Health Na vigation Outreach ([employer] ) Start: 06-16-2024 End: 06-19-2024 Refill Hever Martínez APRN.AUTO CAMP ATTENDANT Work Phone: [facility] Comment on above: Refill Request Start: 04-26-2024 End: 04-26-2024 ambulatory Talia Ferreira MA [facility] [place] Start: 04-26-2024 End: 04-26-2024 Patient encounter procedure Talia Ferreira MA [facility] [place] Comment on above: Population Health Na vigation Outreach ([employer] High Risk - Attempt 2) Start: 04-08-2024 End: 04-09-2024 Refill Hever Martínez APRN.AUTO CAMP ATTENDANT Work Phone: [facility] Comment on above: Refill Request Start: 03-27-2024 End: 03-27-2024 ambulatory RAINA HUYNH Facility:[facility] Start: 03-27-2024 End: 03-27-2024 Office outpatient visit 25 minutes Flavia Smith APRN.AUTO CAMP ATTENDANT Work Phone: Pulmonary Medicine Comment on above: 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) (Primary Dx); Hypoxia; Pneumonia of left lower lobe due to infectious organism; Lung nodules Start: 03-27-2024 End: 03-27-2024 ambulatory [facility] Work Phone: [facility] Comment on above: Spirometry Start: 03-27-2024 End: 03-27-2024 Patient encounter procedure [facility] Work Phone: [facility] Start: 03-27-2024 End: 03-27-2024 Subsequent hospital visit by physician [facility] ([facility]) Work Phone: Cat Scan Comment on above: Pneumonia of left lo wer lobe due to infectious organism [J18.9] Start: 03-21-2024 End: 03-21-2024 Refill Paddy Zaidi MD Work Phone: [facility] Comment on above: Refill Request Appointment Start: 03-20-2024 End: 03-20-2024 ambulatory Elenita Dey MA [facility] [place] Start: 03-20-2024 End: 03-20-2024 Patient encounter procedure Elenita Dey MA [facility] Comment on above: Population Health Na vigation Outreach ([employer] High Risk Attempt #1 ) Start: 03-19-2024 ambulatory RAINA HUYNH Fac ility:[facility] Start: 03-11-2024 End: 03-13-2024 Refill Paddy Zaidi MD Work Phone: [facility] Comment on above: Refill Request Start: 03-06-2024 End: 03-21-2024 Telephone encounter Raina Huynh MD Work Phone: Pulmonary Medicine Comment on above: Anticoagulation Start: 03-05-2024 End: 03-05-2024 ambulatory Pulm [facility] Work Phone: [facility]UL[facility] Comment on above: Spirometry Start: 03-05-2024 End: 03-05-2024 Patient encounter procedure [facility] Work Phone: [facility] Comment on above: Stage 3 severe COPD by GOLD classification ([facility]) (Primary Dx); Pneumonia of left lower lobe due to infectious organism; Lung nodules; Former smoker; Chronic hypoxemic respiratory failure (HCC) Start: 03-02-2024 End: 03-02-2024 ambulatory PADDY ZAIDI Facility:[facility] Start: 02-15-2024 End: 02-16-2024 Telephone encounter Paddy Zaidi MD Work Phone: [facility] Comment on above: Medication Problem Start: 02-14-2024 End: 02-14-2024 ambulatory HEVER MARTÍNEZ Facility:[facility] Start: 02-14-2024 End: 02-14-2024 Office outpatient visit 25 minutes Hever Martínez APRN.AUTO CAMP ATTENDANT Work Phone: [facility] Comment on above: Pneumonia of right l ower lobe due to infectious organism (Primary Dx); Chronic obstructive pulmonary disease, unspecified COPD type (HCC); Adjustment disorder with mixed anxiety and depressed mood; Paroxysmal atrial fibrillation ([facility]); Encounter for immunization Start: 02-14-2024 End: 02-14-2024 Telephone encounter Hever Martínez APRN.AUTO CAMP ATTENDANT Work Phone: [facility] Comment on above: Appointment Refill Request Start: 02-13-2024 End: 02-13-2024 Telephone encounter Paddy Zaidi MD Work Phone: [facility] Comment on above: [facility]) Start: 02-07-2024 End: 02-07-2024 Emergency department patient visit Alpa Jeffries Facility:[facility] Start: 12-30-2023 End: 01-02-2024 Refill Paddy Zaidi MD Work Phone: [facility] Comment on above: Refill Request Start: 12-21-2023 End: 12-21-2023 Telephone encounter Paddy Zaidi MD Work Phone: [facility] Comment on above: Orders (Dasco annual oxygen rx) Start: 12-01-2023 End: 12-01-2023 Refill Paddy Zaidi MD Work Phone: [facility] Comment on above: Refill Request Start: 11-28-2023 End: 11-29-2023 Refill Paddy Zaidi MD Work Phone: [facility] Comment on above: Refill Request Start: 09-02-2023 ambulatory Sarah Robison RN Work Phone: [employer] Management Start: 08-25-2023 ambulatory Corrina GAN [employer] Start: 08-25-2023 Home visit Corrina Collazo [employer] Comment on above: Population Health Na vigation Outreach ([employer] Attributed Member- Needs 2023 Medicare Wellness Appt Scheduled/) Start: 08-03-2023 ambulatory Elenita Dey MA [facility] Start: 08-03-2023 Patient encounter procedure Elenita Dey MA [facility] Comment on above: Population Health Na vigation Outreach ([employer] AWV/HCC and care gaps /) Start: 07-11-2023 Refill Paddy quintana MD Work Phone: [facility] Comment on above: Refill Request Medication Request Start: 06-13-2023 Telephone encounter Paddy Zaidi MD Work Phone: [facility] Comment on above: Results (Labs ) Start: 06-07-2023 End: 06-07-2023 Patient encounter procedure Paddy Zaidi MD Work Phone: [facility] Comment on above: 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) (Primary Dx); Hypothyroidism, unspecified type; Essential hypertension; Mixed hyperlipidemia; Peripheral polyneuropathy; SOB (shortness of breath); Hypoxemia Start: 05-27-2023 Refill Paddy quintana MD Work Phone: [facility] Comment on above: Refill Request Start: 04-15-2023 ambulatory Corrina Barakat MA [facility] Comment on above: Population Health Na vigation Outreach ([employer] [facility] 2.16.24) Start: 04-08-2023 Refill Paddy quintana MD Work Phone: [facility] Comment on above: Refill Request Start: 03-18-2023 Telephone encounter Paddy Zaidi MD Work Phone: [facility] Comment on above: Received Outside Med ical Records ([facility] ED 03/15/23) Start: 03-15-2023 End: 03-15-2023 Emergency department patient visit [facility] Work Phone: Start: 12-28-2022 Telephone encounter Paddy Zaidi MD Work Phone: [facility] Comment on above: Orders (Dasco annual oxygen prescription renewal ) Start: 09-23-2022 Telephone encounter Paddy Zaidi MD Work Phone: [facility] Comment on above: Received Outside Med ical Records ([facility] 09/22/22) Start: 09-22-2022 End: 09-22-2022 Emergency department patient visit [facility]gency [facility] Work Phone: Start: 08-20-2022 Telephone encounter Paddy Zaidi MD Work Phone: [facility] Comment on above: Patient Question Start: 06-22-2022 Telephone encounter Hever page CASKET LINER.AUTO CAMP ATTENDANT Work Phone: [facility] Comment on above: Orders Start: 06-02-2022 End: 06-02-2022 Office outpatient visit 15 minutes Hever Santiago CASKET LINER.AUTO CAMP ATTENDANT Work Phone: [facility] Comment on above: Pneumonia of right m iddle lobe due to infectious organism (Primary Dx); ED (erectile dysfunction) of organic origin; Adjustment disorder with mixed anxiety and depressed mood Start: 05-25-2022 ambulatory Hever Arce PRN.CNP Work Phone: [facility] Comment on above: Results Start: 05-22-2022 End: 05-22-2022 Subsequent hospital visit by physician Xr [facility] Work Phone: Radiology Comment on above: Coronary artery dise ase involving gakona coronary artery of gakona heart with angina pectoris (HCC) [I25.119] Start: 05-21-2022 End: 05-21-2022 Patient encounter procedure Paddy Zaidi MD Work Phone: [facility] Comment on above: Coronary artery dise ase involving gakona coronary artery of gakona heart with angina pectoris (HCC) (Primary Dx); Essential hypertension; Hypokalemia; Peripheral polyneuropathy; Acquired hypothyroidism; Anxiety; Paroxysmal atrial fibrillation (HCC); SOB (shortness of breath); Mixed hyperlipidemia; Hypothyroidism, unspecified type; Chronic obstructive pulmonary disease, unspecified COPD type ([facility]) Start: 05-14-2022 Telephone encounter Paddy Zaidi MD Work Phone: [facility] Comment on above: Medication Problem Start: 04-27-2022 ambulatory Talia Hood [facility] [place] Comment on above: Population Health Na vigation Outreach ([facility]) Start: 03-30-2022 ambulatory Paddy quintana MD Work Phone: Internal Medicine [facility] [place] Start: 02-19-2022 Telephone encounter Paddy Zaidi MD Work Phone: [facility] Comment on above: Medication Problem Start: 01-18-2022 End: 01-18-[address] Shayne Zaidi Work Phone: [facility] Work Phone: Start: 01-18-2022 End: 01-18-[address] Sahyne Zaidi Work Phone: [facility]-Sleep Lab Start: 12-28-2021 Telephone encounter Paddy Zaidi MD Work Phone: [facility] Comment on above: Received Outside Med ical Records (Pulmonary Medicine [facility]) Start: 12-28-2021 End: 12-28-[address] Shayne aZidi Work Phone: [facility]-Pulmonary Medicine [facility] Start: 12-25-2021 Telephone encounter Paddy Zaidi MD Work Phone: [facility] Comment on above: Received Outside Med ical Records ([facility] 12 lead EKG 12/16/2021 and 12/17/2021) Start: 12-23-2021 Non-patient / Non-visit Dr. 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 12/18/2021) Start: 12-18-2021 Non-patient / Non-visit Dr. Oscar Zaidi Work Phone: [facility] Start: 12-17-2021 Non-patient / Non-visit Dr. Oscar Zaidi Work Phone: [facility] Start: 12-17-2021 Telephone encounter Paddy Zaidi MD Work Phone: Family Practice Comment on above: Received Outside Med ical Records ([facility]) Start: 12-17-2021 End: 12-18-2021 Non-patient / Non-visit Dr. Shayne Zaidi Work Phone: [facility] Start: 12-16-2021 Non-patient / Non-visit Dr. Oscar Zaidi Work Phone: [facility] Start: 12-16-2021 Telephone encounter Paddy Zaidi MD Work Phone: Family Practice Comment on above: Received Outside Med ical Records ([facility] Cardiac Cath) Start: 12-16-2021 Non-patient / Non-visit Dr. Oscar Zaidi Work Phone: [facility] Start: 12-15-2021 Telephone encounter Paddy Zaidi MD Work Phone: Family Practice Comment on above: Received Outside Med ical Records ([facility] ED) Start: 12-15-2021 Non-patient / Non-visit Dr. Oscar Zaidi Work Phone: [facility] Start: 12-15-2021 Non-patient / Non-visit Dr. Oscar Zaidi Work Phone: [facility] Start: 12-14-2021 Non-patient / Non-visit Dr. Oscar Zaidi Work Phone: [facility] Start: 12-14-2021 Non-patient / Non-visit Dr. Oscar Zaidi Work Phone: [facility] Start: 12-14-2021 End: 12-18-2021 Evaluation and management of inpatient Dr. Shayne Zaidi Work Phone: [facility] Start: 11-13-2021 Refill Hever Pamela A PRN.AUTO CAMP ATTENDANT Work Phone: [facility] Comment on above: Refill Request Start: 09-14-2021 Telephone encounter Hever Matosi ns CASKET LINER.AUTO CAMP ATTENDANT Work Phone: [facility] Comment on above: Results Start: 09-09-2021 Refill Hever Pamela A PRN.AUTO CAMP ATTENDANT Work Phone: [facility] Comment on above: Refill Request Start: 06-22-2021 End: 06-22-2021 Patient encounter procedure Hever Pamela CASKET LINER.AUTO CAMP ATTENDANT Work Phone: [facility] Comment on above: Essential hypertensi on (Primary Dx); Pure hypercholesterolemia; Acquired hypothyroidism; Adjustment disorder with mixed anxiety and depressed mood; Peripheral polyneuropathy Start: 06-09-2021 Refill Paddy quintana MD Work Phone: [facility] Comment on above: Refill Request Start: 05-20-2021 Refill Paddy quintana MD Work Phone: [facility] Comment on above: Refill Request Procedures Date Procedure Procedure Detail Performing Clinician Start: 09-12-[address] Shayne Zaidi MD Work Phone: Start: 09-12-2024 X-ray of chest, PA a nd lateral views Dr. Shayne Zaidi MD Work Phone: Start: 09-11-[address] Rosales Zaidi MD Work Phone: Start: 09-10-2024 Legionella pneumophi la antigen assay Dr. Shanye Zaidi MD Work Phone: Start: 09-10-[address] Shayne Zaidi MD Work Phone: Start: 09-10-2024 End: 09-10-2024 Streptococcus pneumoniae antigen assay Dr. Shayne Zaidi MD Work Phone: Start: 09-10-2024 Urnls dip stick/tabl et reagent auto microscopy Dr. Shayne Zaidi MD Work Phone: Start: 09-10-[address] Shayne Zaidi MD Work Phone: Start: 09-10-2024 D-dimer assay, quantitative Dr. Shayne Zaidi MD Work Phone: Comment on above: NORMAL D-Dimer level (<0.50) indicates no DVT or PE. Start: 09-10-2024 Serum inorganic phos phate measurement Dr. Shayne Zaidi MD Work Phone: Start: 09-10-2024 CT of chest without contrast Dr. Shayne Zaidi MD Work Phone: Start: 03-27-2024 Noninvasive ear/puls e oximetry multiple deter Raina Huynh MD Work Phone: Start: 03-05-2024 Brncdilat rspse spmt ry pre&post-brncdilat admn Raina Huynh MD Work Phone: Start: 03-15-2023 SARS-CoV-2, Influenz a & RSV (PCR) Start: 03-15-2023 Plain chest X-ray Start: 09-22-2022 Radiography of ankle Start: 09-22-2022 X-ray of both feet Start: 09-22-2022 Plain X-ray of tibia and fibula Start: 05-22-2022 Radiologic exam ches t 2 views Paddy Zaidi MD Work Phone: Start: 05-21-2022 Blood count complete automated Paddy Zaidi MD Work Phone: Start: 05-21-2022 Lipid panel Paddy Zaidi MD Work Phone: Start: 05-21-2022 Ecg routine ecg w/le ast 12 lds i&r only Paddy Zaidi MD Work Phone: Start: 12-18-2021 Plain chest X-ray Dr. Ralf Zaidi Work Phone: Start: 12-17-[address] Shayne Zaidi Work Phone: Start: 12-16-2021 History of placement of stent for coronary artery disease History of coronary artery stent placement Dr. Aayush Sibley DO Comment on above: PCI-KIRK-dLM w/ 3.50 x 08 Synergy MR KIRK 12/16/21 Start: 12-15-2021 CT angiography of ch est with contrast Dr. Shayne Zaidi Work Phone: Start: 12-14-2021 Plain chest X-ray Dr. Ralf Zaidi Work Phone: Legionella pneumophi la antigen assay Dr. Shayne Zaidi Work Phone: Streptococcus pneumo niae Antigen (M Dr. Shayne Zaidi Work Phone: Viral antigen assay Dr. Capo Zaidi Work Phone: Plan of Treatment Date Care Activity Detail Author Start: 09-10-2027 Diabetes Screening [facility] Start: 06-30-2027 Diabetes Screening Diabetes [facility] Start: 06-05-2026 Diabetes Screening Diabetes [facility] Start: 06-29-2025 Hepatitis B surface antibody level LDL Cholesterol [facility] Start: 05-21-2025 DIABETES SCREEN DIABETES SCREEN [facility] Start: 05-21-2025 Diabetes Screening Diabetes [facility] Start: 11-16-2024 End: 11-16-2024 Patient encounter procedure 11/16/2024 10:00 AM EDT Office Visit Cardiology [address] [place] [address] [place] [address] [place], [place] [id number] Dx: Paroxysmal atrial fibrillation (HCC) [I48.0] Cardiology Comment on above: Dx: Paroxysmal atria l fibrillation (HCC) [I48.0] Start: 10-16-2024 End: 10-16-2024 Patient encounter procedure 10/16/2024 3:20 PM EDT Office Visit [address] [place] [address] Paddy Zaidi MD [address] [place] [address] follow up [facility] Comment on above: follow up Start: 10-08-2024 Influenza vaccination Influenza Vacc ine (#1) [facility] Start: 10-02-2024 End: 10-02-2024 Patient encounter procedure 10/02/2024 2:00 PM EDT Office Visit Pulmonary Medicine [address] [place] [address] Flavia Smith APRN.AUTO CAMP ATTENDANT [address] [place] [address] 3 MTH F/U / PT DECLINED EARLIER APPOINTMENT Pulmonary Medicine Comment on above: 3 MTH F/U / PT DECLI LUCILA EARLIER APPOINTMENT Start: 09-14-2024 DIABETES SCREEN DIABETES SCREEN [facility] Start: 09-12-2024 Patient discharge [facility] Start: 09-10-2024 Speech therapy assessment [facility] Start: 09-10-2024 Continuous positive airway pressure ventilation treatment [facility] Start: 09-10-2024 Referral to recreation teacher [facility] Start: 09-10-2024 Assessment of risk o f venous thromboembolism [facility] Start: 09-10-2024 Catheterization of vein [facility] Start: 09-10-2024 Insertion of cathete r into peripheral vein [facility] Start: 09-10-2024 Measuring intake and output [facility] Start: 09-10-2024 Oxygen therapy [facility] Start: 09-10-2024 Providing care accor ding to standard [facility] Start: 09-10-2024 Provision of activit y privileges [facility] Start: 09-10-2024 Referral to occupati onal therapist [facility] Start: 09-10-2024 Referral to service [facility] Start: 09-10-2024 Admission procedure [facility] Start: 09-10-2024 Following clinical pathway protocol [facility] Start: 09-10-2024 Consultation [facility] Start: 09-10-2024 End: 09-10-2024 [facility] Start: 07-13-2024 End: 07-13-2024 Patient encounter procedure 07/13/2024 4:20 PM EDT Office Visit Family Practice [address] [place], [place] [address] Paddy Zaidi MD [address] [place], [place] [id number] Foot issues follow up [facility] Comment on above: Foot issues follow u p Start: 06-26-2024 End: 06-26-2024 Patient encounter procedure Pulmonary Medicine Comment on above: 3 MTH F/U Start: 06-05-2024 Hepatitis B surface antibody level LDL Cholesterol [facility] Start: 03-27-2024 End: 03-27-2024 Patient encounter procedure Pulmonary Medicine Comment on above: f/up Pneumonia of left lo wer lobe due to infectious organism [J18.9]; Lung nodules [R91.8] Start: 03-27-2024 End: 03-27-2024 ambulatory 03/27/2024 1:30 PM EST Procedure PULM LAB [facility] [address] [place] [address] Wstr, Pulm Lab [facility] [address] [place] [address] 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] [facility]UL[facility] WS Comment on above: 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] Start: 03-26-2024 End: 03-26-2024 Patient encounter procedure 03/26/2024 3:00 PM EST Office Visit [facility] [address] [place], [place] [id number] Paddy Zaidi MD [address] [place] [address] [place], [place] [id number] follow up [facility] Comment on above: follow up Start: 03-21-2024 End: 03-21-2024 Patient encounter procedure Pulmonary Medicine Comment on above: f/up Pneumonia of left lo wer lobe due to infectious organism [J18.9]; Lung nodules [R91.8] Start: 03-21-2024 End: 03-21-2024 ambulatory 03/21/2024 1:30 PM EST Procedure PULM LAB [facility] [address] [place] [address] Wstr, Pulm Lab [facility] [address] [place] [address] 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] [facility] Comment on above: 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] Start: 03-14-2024 End: 03-14-2024 Patient encounter procedure Cat Scan Comment on above: Pneumonia of left lo wer lobe due to infectious organism [J18.9]; Lung nodules [R91.8] f/up Start: 03-14-2024 End: 03-14-2024 ambulatory 03/14/2024 12:30 PM EST Procedure PULM LAB [facility] [address] [place] [address] Wstr, Pulm Lab [facility] [address] [place] [address] 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] PUL[facility] LAB [facility] Comment on above: 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] Start: 02-21-2024 End: 05-22-2024 CBC panel - Blood by Automated count COMPLETE BLOOD COUNT Lab Routine Paroxysmal atrial fibrillation (HCC) Expected: 02/21/2024, Expires: 05/22/2024 [facility] Work Phone: Comment on above: Expected: 02/21/2024 , Expires: 05/22/2024 Start: 02-14-2024 End: 05-15-2024 Basic metabolic 2000 panel - Serum or Plasma BASIC METABOLIC PANEL Lab Routine Paroxysmal atrial fibrillation (HCC) Expected: 02/14/2024, Expires: 05/15/2024 [facility] Comment on above: Expected: 02/14/2024 , Expires: 05/15/2024 Start: 02-14-2024 End: 02-14-2024 Patient encounter procedure 02/14/2024 2:00 PM EST Office Visit Family Practice [address] [place], [place] [address] Hever Martínez, NORA.AUTO CAMP ATTENDANT [address] [place], [place] [address] hosptial f/u breathing cold coughing touch of pneumonia Family Practice Comment on above: hosptial f/u breathi ng cold coughing touch of pneumonia Start: 02-08-2024 Advance Directive Discussion Advance Directive Discussion [facility] Start: 02-08-2024 Medicare Advantage A nnual Wellness Visit Medicare Advantage Annual Wellness Visit [facility] Start: 12-18-2023 DIABETES SCREEN DIABETES SCREEN [facility] Start: 10-09-2023 Covid-19 Vaccine ( season) Covid-19 Vaccine () [facility] Start: 10-09-2023 Influenza vaccination [facility] Start: 07-08-2023 End: 07-08-2023 Patient encounter procedure 07/08/2023 3:40 PM EDT Office Visit Family Practice [address] [place], [place] [phone] Paddy Zaidi MD [address] [place], [place] [address] 1 month follow up [facility] Comment on above: 1 month follow up Start: 06-23-2023 End: 06-23-2023 Patient encounter procedure 06/23/2023 3:20 PM EDT Office Visit Family Practice [address] [place], [place] [address] Paddy Zaidi MD [address] [place], [place] [id number] MEDICARE WELLNESS [id number] [facility] Comment on above: MEDICARE WELLNESS Z0 0.00 Start: 06-16-2023 End: 06-16-2023 ambulatory 06/16/2023 2:15 PM EDT Procedure PULM LAB [facility] [address] [place] [address] Wstr, Pulm Lab [facility] [address] [place] [place] [address] 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]; Hypoxemia [R09.02] PULM LAB [facility] Comment on above: 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) [I25.729]; Hypoxemia [R09.02] Start: 06-07-2023 End: 06-07-2023 Patient encounter procedure 06/07/2023 4:20 PM EDT Office Visit [address] [place], [place] [phone] Paddy Zaidi MD [address] [place] [address] [place], [place] [address] anxiety, [facility] Comment on above: anxiety, Start: 05-27-2023 End: 08-26-2023 CBC panel - Blood by Automated count COMPLETE BLOOD COUNT Lab Routine Essential hypertension Mixed hyperlipidemia Peripheral polyneuropathy Expected: 05/27/2023, Expires: 08/26/2023 [facility] Comment on above: Expected: 05/27/2023 , Expires: 08/26/2023 Start: 05-27-2023 End: 08-26-2023 Comprehensive metabolic 2000 panel - Serum or Plasma COMPREHENSIVE METABOLIC PANEL Lab Routine Essential hypertension Expected: 05/27/2023, Expires: 08/26/2023 [facility] Work Phone: Comment on above: Expected: 05/27/2023 , Expires: 08/26/2023 Start: 05-27-2023 End: 08-26-2023 Hemoglobin A1c in Blood HEMOGLOBIN A1C Lab Routine Peripheral polyneuropathy Expected: 05/27/2023, Expires: 08/26/2023 [facility] Comment on above: Expected: 05/27/2023 , Expires: 08/26/2023 Start: 05-27-2023 End: 08-26-2023 Lipid 1996 panel - Serum or Plasma LIPID PANEL BASIC Lab Routine Mixed hyperlipidemia Expected: 05/27/2023, Expires: 08/26/2023 [facility] Comment on above: Expected: 05/27/2023 , Expires: 08/26/2023 Start: 05-27-2023 End: 08-26-2023 Thyrotropin [Units/volume] in Serum or Plasma THYROID STIMULATING HORMONE Lab Routine Hypothyroidism, unspecified type Expected: 05/27/2023, Expires: 08/26/2023 [facility] Comment on above: Expected: 05/27/2023 , Expires: 08/26/2023 Start: 05-22-2023 Hepatitis B surface antibody level LDL CHOLESTEROL [facility] Start: 03-15-2023 [facility] Start: 03-15-2023 Inhalation therapy procedure [facility] Start: 02-07-2023 Advance Directive Discussion Advance Directive Discussion [facility] Start: 12-23-2022 SHINGRIX VACCINE (1 of 2) SMALL GRIX VACCINE (1 of 2) [facility] Comment on above: Postponed from 10/05 (Declined at this time) Start: 12-23-2022 Urine microalbumin profile DTAP,TDAP,TD (1 - Tdap) [facility] Comment on above: Postponed from 10/05 (Declined at this time) Start: 10-08-2022 Covid-19 Vaccine () Covid-19 Vaccine () [facility] Start: 10-08-2022 Influenza vaccination C 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) SOB (shortness of breath) Expected: 05/21/2022, Expires: 07/21/2022 [facility] Work Phone: Comment on above: Expected: 05/21/2022 , Expires: 07/21/2022 Start: 03-30-2022 End: 05-30-2022 CBC panel - Blood by Automated count CBC Lab Routine Medication management Expected: 03/30/2022, Expires: 05/30/2022 [facility] Work Phone: Comment on above: Expected: 03/30/2022 , Expires: 05/30/2022 Start: 03-30-2022 End: 05-30-2022 SCHEDULE LAB TESTING SCHEDULE LAB TESTING Lab Routine Expected: 03/30/2022, Expires: 05/30/2022 [facility] Work Phone: Comment on above: Expected: 03/30/2022 , Expires: 05/30/2022 Start: 03-30-2022 End: 05-30-2022 Thyrotropin [Units/volume] in Serum or Plasma TSH BLD Lab Routine Acquired hypothyroidism Expected: 03/30/2022, Expires: 05/30/2022 [facility] Work Phone: Comment on above: Expected: 03/30/2022 , Expires: 05/30/2022 Start: 02-07-2022 ADVANCE DIRECTIVE DISCUSSION ADVANCE DIRECTIVE DISCUSSION [facility] Start: 12-23-2021 Patient referral [facility] Work Phone: Start: 12-18-2021 Patient discharge [facility] Work Phone: Start: 12-18-2021 [facility] Work Phone: Start: 12-17-2021 Referral to occupati onal therapist [facility] Work Phone: Start: 12-17-2021 Referral to service [facility] Work Phone: Start: 12-17-2021 Hepatitis B surface antibody level LDL CHOLESTEROL [facility] Start: 12-16-2021 End: 12-17-2021 [facility] Work Phone: Start: 12-16-2021 Cardiac monitoring [facility] Work Phone: Start: 12-16-2021 Cardiac rehabilitati on - phase 1 [facility] Work Phone: Start: 12-16-2021 Cardiac rehabilitati on - phase 2 [facility] Work Phone: Start: 12-16-2021 Notification of physician [facility] Work Phone: Start: 12-16-2021 Patient discharge [facility] Work Phone: Start: 12-16-2021 Systemic arterial pressure monitoring [facility] Work Phone: Start: 12-16-2021 Taking patient vital signs [facility] Work Phone: Start: 12-16-2021 Vascular disease ris k assessment [facility] Work Phone: Start: 12-16-2021 Vital signs measurements [facility] Work Phone: Start: 12-15-2021 Care planning and pr oblem solving actions [facility] Work Phone: Start: 12-15-2021 Patient referral [facility] Work Phone: Start: 12-15-2021 Catheterization of vein [facility] Work Phone: Start: 12-15-2021 Medication not administered [facility] Work Phone: Start: 12-15-2021 [facility] Work Phone: Start: 12-14-2021 Care planning and pr oblem solving actions [facility] Work Phone: Start: 12-14-2021 Ambulation without limitation [facility] Work Phone: Start: 12-14-2021 Assessment of risk o f venous thromboembolism [facility] Work Phone: Start: 12-14-2021 Catheterization of vein [facility] Work Phone: Start: 12-14-2021 Chart related administrative procedure [facility] Work Phone: Start: 12-14-2021 Elevation of head of bed [facility] Work Phone: Start: 12-14-2021 Insertion of cathete r into peripheral vein [facility] Work Phone: Start: 12-14-2021 Measuring intake and output [facility] Work Phone: Start: 12-14-2021 Medication education [facility] Work Phone: Start: 12-14-2021 Oxygen therapy [facility] Work Phone: Start: 12-14-[address] [facility] Work Phone: Start: 12-14-2021 Providing care accor ding to standard [facility] Work Phone: Start: 12-14-2021 Referral to recreation teacher [facility] Work Phone: Start: 12-14-2021 [facility] Work Phone: Start: 12-14-2021 Troponin I measurement [facility] Work Phone: Start: 12-14-2021 Bacteria identified in Sputum by Culture [facility] Work Phone: Start: 12-14-2021 Legionella pneumophi la Ag [Presence] in Urine [facility] Work Phone: Start: 12-14-2021 Streptococcus pneumo niae antigen assay [facility] Work Phone: Start: 12-14-2021 [facility] Work Phone: Start: 12-14-2021 End: 12-14-2021 Following clinical pathway protocol [facility] Work Phone: Start: 12-14-2021 Verification routine [facility] Work Phone: Start: 12-14-2021 Admission procedure [facility] Work Phone: Start: 12-14-2021 [facility] Work Phone: Start: 10-08-2021 Influenza vaccination INFLUENZA (#1) [facility] Start: 09-10-2021 End: 11-10-2021 Basic metabolic 2000 panel - Serum or Plasma BASIC METABOLIC PNL Lab Routine Essential hypertension Hypokalemia Expected: 09/10/2021, Expires: 11/10/2021 [facility] Work Phone: Comment on above: Expected: 09/10/2021 , Expires: 11/10/2021 Start: 02-07-2021 ADVANCE DIRECTIVE DISCUSSION ADVANCE DIRECTIVE DISCUSSION [facility] Start: 08-25-2020 COVID-19 VACCINE (3 - Booster for Moderna series) COVID-19 VACCINE (3 - Booster for Moderna series) [facility] Start: 05-23-2020 COVID-19 VACCINE (3 - Booster for Moderna series) COVID-19 VACCINE (3 - Booster for Moderna series) [facility] Start: 05-23-2020 COVID-19 VACCINE (3 - Moderna series) COVID-19 VACCINE (3 - Moderna series) [facility] Start: 10-05-2014 RSV Vaccine (1 - 1-d ose 75+ series) RSV Vaccine (1 - 1-dose 75+ series) [facility] Start: 1999 RSV Vaccine (1 - 1-d ose 60+ series) RSV Vaccine (1 - 1-dose 60+ series) [facility] Start: 10-05-1989 SHINGRIX VACCINE (1 of 2) SMALL GRIX VACCINE (1 of 2) [facility] Start: 10-05-1958 Urine microalbumin profile [facility] Start: 10-05-1957 SPIROMETRY SPIROMETRY [facility] End: 04-04-2025 CT Chest WO contrast CT CHEST WO IVCON Radiology Routine Pneumonia of left lower lobe due to infectious organism Lung nodules 1 Occurrences starting 03/05/2024 until 04/04/2025 [facility] Work Phone: Comment on above: 1 Occurrences starti ng 03/05/2024 until 04/04/2025 CT Chest WO contrast CT CHEST WO IVCON Radiology Routine Pneumonia of left lower lobe due to infectious organism Lung nodules 03/27/2024 3:54 PM EST [facility] Work Phone: ECG COMPLETE ECG COMPLETE ECG Routine 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) Paroxysmal atrial fibrillation (HCC) 05/21/2022 3:54 PM EDT [facility] Work Phone: OXIMETRY - NOCTURNAL OXIMETRY - NOCTURNAL Procedures Routine Hypoxia Ordered: 03/27/2024 [facility] Work Phone: Comment on above: Ordered: 03/27/2024 End: 04-04-2025 OXIMETRY WITH AMBULATION OXIMETRY WITH AMBULATION PFT Routine 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) 1 Occurrences starting 03/05/2024 until 04/04/2025 [facility] Comment on above: 1 Occurrences starti ng 03/05/2024 until 04/04/2025 Patient Education [facility] Work Phone: Patient referral [facility] Work Phone: End: 02-15-2025 PT panel - Platelet poor plasma by Coagulation assay PROTHROMBIN TIME Lab Routine Chronic atrial fibrillation (HCC) nursing home current use of anticoagulant therapy Once per week for 52 Occurrences starting 02/16/2024 until 02/15/2025 [facility] Work Phone: Comment on above: Once per week for 52 Occurrences starting 02/16/2024 until 02/15/2025 End: 06-20-2023 Radiologic exam chest 2 views XR CHEST 2V FRONTAL/LAT Radiology Routine 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) Paroxysmal atrial fibrillation (HCC) SOB (shortness of breath) 1 Occurrences starting 05/21/2022 until 06/20/2023 [facility] Work Phone: Comment on above: 1 Occurrences starti ng 05/21/2022 until 06/20/2023 Radiologic exam ches t 2 views XR CHEST 2V FRONTAL/LAT Radiology Routine Pneumonia of right middle lobe due to infectious organism Ordered: 06/02/2022 [facility] Work Phone: Comment on above: Ordered: 06/02/2022 End: 07-06-2024 SIX MINUTE WALK SIX MINUTE WALK PFT Routine 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) SOB (shortness of breath) 1 Occurrences starting 06/07/2023 until 07/06/2024 [facility] Work Phone: Comment on above: 1 Occurrences starti ng 06/07/2023 until 07/06/2024 [facility] Immunizations Immunization Date Immunization Notes Care Provider Fa cili 02-14-2024 influenza, high dose seasonal, preservative-free Hever Martínez [employer] ATTEND[employer] Work Phone: [facility] 02-14-2024 influenza virus vacc ine, unspecified formulation Paddy Zaidi MD Work Phone: [facility] 12-17-2020 influenza, high-dose , quadrivalent vaccine (FLUZONE HIGH DOSE QUADRIVALENT) Paddy Zaidi MD Work Phone: [facility] 12-17-2020 influenza virus vacc ine, unspecified formulation Paddy Zaidi MD Work Phone: [facility] 03-28-2020 COVID-19 vaccine, fu ll dose (MODERNA) Paddy Zaidi MD Work Phone: [facility] 02-29-2020 COVID-19 vaccine, fu ll dose (MODERNA) Paddy Zaidi MD Work Phone: [facility] 07-31-2019 pneumococcal polysaccharide vaccine, 23 valent Paddy Zaidi MD Work Phone: [facility] 07-31-2019 pneumococcal vaccine , unspecified formulation Dr. Shayne Zaidi Work Phone: [facility] 01-12-[address] Shayne Zaidi Work Phone: [facility] 01-12-2018 influenza, high dose seasonal, preservative-free Paddy Zaidi MD Work Phone: [facility] 01-12-2018 influenza, seasonal, injectable Paddy Zaidi MD Work Phone: [facility] 01-12-2018 influenza, seasonal, injectable, preservative free Paddy Zaidi MD Work Phone: [facility] 01-12-2018 pneumococcal polysaccharide vaccine, 23 valent Paddy Zaidi MD Work Phone: [facility] 01-12-2018 pneumococcal vaccine , unspecified formulation Paddy Zaidi MD Work Phone: [facility] 03-31-2017 pneumococcal conjuga te vaccine, 13 valent Paddy Zaidi MD Work Phone: [facility] 12-08-[address] Shayne Zaidi Work Phone: [facility] 12-08-2016 influenza, seasonal, injectable Paddy Zaidi MD Work Phone: [facility] 12-08-2016 influenza, seasonal, injectable, preservative free Paddy Zaidi MD Work Phone: [facility] 11-27-2016 influenza, high dose seasonal, preservative-free Paddy Zaidi MD Work Phone: [facility] Work Phone: 12-01-2013 influenza virus vacc ine, whole virus Paddy Zaidi MD Work Phone: [facility] 11-23-2012 influenza virus vacc ine, unspecified formulation Paddy Zaidi MD Work Phone: [facility] 01-16-2010 pneumococcal polysaccharide vaccine, 23 valent Paddy Zaidi MD Work Phone: [facility] 12-09-2009 influenza virus vacc ine, unspecified formulation Paddy Zaidi MD Work Phone: [facility] 12-23-2008 influenza virus vacc ine, unspecified formulation Paddy Zaidi MD Work Phone: [facility] Work Phone: Payers Date Payer Category Payer Self-pay [id number] 2021 Medicare [id number] 2021 Medicare AETNA MEDICARE A ETNA MEDICARE PPO [id number] 2021-Present [phone] [address] [place] [address] PPO [id number] 2021 Medicare (Managed Care) AETNA [place] DICARE [id number] 2014 Private Health Insurance [id number] 2009 Medicare AETNA MEDICARE A ETNA MEDICARE PPO [id number] 2009-Present [phone] [address] [place] [address] PPO [id number] Medicare MEDICARE PART A B [id number] Unknown [id number] Unknown [id number] Unknown [id number] Unknown [id number] Unknown [id number] Unknown [id number] Unknown [id number] Social History Date Type Detail Facility Start: 02-01-2017 End: 09-10-2024 Tobacco smoking status NHIS Ex-smoker [facility] Start: 10-17-1967 End: 10-16-1992 History of tobacco use Current smoker [facility] Start: 10-17-1967 End: 10-16-1992 History of tobacco use Cigarette Smoker [facility] Start: 12-17-2020 End: 09-09-2024 Alcohol intake Current non-drinker of alcohol (finding) [facility] Start: 1940 Sex Assigned At Not on file [facility] Start: 06-12-2021 End: 12-23-2021 Exposure to SARS-CoV-2 (event) Not sure [facility] Start: 02-01-2017 End: 07-20-2022 Cigarettes smoked current (pack per day) - Reported 2 [facility] Start: 02-01-2017 End: 03-05-2024 Tobacco use and exposure Smokeless tobacco non-user [facility] Start: 12-14-2021 End: 03-15-2023 Tobacco smoking status WAIS Unknown if ever smoked [facility] Start: 07-28-2019 None [place] [employer] [facility] Start: 07-28-2019 Spouse/ Signif icant Other [facility] Start: 07-28-2019 Non-smoker [facility] Start: 1940 Sex Assigned At Male [facility] Start: 06-02-2022 End: 07-20-2022 Tobacco use panel [facility] Adult Depression Screening Assessment 0 [facility] Medical Equipment Procedure Code Equipment Code [...] X3 Insert for MDM FDA Start: 07-24-2018 ([id number]) Drug-eluting cor onary artery stent, bioabsorbable-polymer -coated [id number] FDA Start: 12-16-2021 6.5MM CANNULATED SCREW FDA [...] /State Functional Status Date Assessment Result Facility 09-12-2024 Functional status Ambulates [facility] Work Phone: 12-18-2021 Functional status Chair [facility] Work Phone: 07-29-2014 Are you deaf, or do you have serious difficulty hearing No 07/29/2014 10:56 AM Sindhu Quiroz Ma No [facility] 07-29-2014 Are you blind, or do you have serious difficulty seeing, even when wearing glasses No 07/29/2014 10:56 AM Sindhu Quiroz Ma No [facility] 07-29-2014 Do you have serious difficulty walking or climbing stairs No 07/29/2014 10:56 AM Sindhu Quiroz Ma No [facility] 07-29-2014 Do you have difficul ty dressing or bathing No 07/29/2014 10:56 AM Sindhu Quiroz Ma No [facility] 07-29-2014 Because of a physica l, mental, or emotional condition, do you have difficulty doing errands alone such as visiting a physician's office or shopping No 07/29/2014 10:56 AM Sindhu Quiroz Ma No [facility] Mental Status Date Assessment Result Facility 09-12-2024 Cognitive function Voice/Name [facility] Work Phone: 12-18-2021 Cognitive function Voice/Name [facility] Work Phone: 07-29-2014 Because of a physica l, mental, or emotional condition, do you have serious difficulty concentrating, remembering, or making decisions No 07/29/2014 10:56 AM Sindhu Quiroz Ma No [facility] Clinical Notes 05-21-2021 to 09-12-2024 Note Date & Type Note Facility 09-12-2024 Progress note Note Date/Time September 12, 2024 3:09pm [facility] Medical Records Department [address] [place] [address] Progress Note - Hospitalist 09/11/24 1616 MR#: [id number] Acct: [id number] Name: ARTURO PEDERSEN Rep #:[id number] : 1940 83 From: Aayush Sibley DO PCP: Dr. Shayne Zaidi MD Status:ADM IN Location: [place] [address] Reason for Visit Chief Complaint: Shortness of Breath, Cough, Chest Pain, Anxiety and GeneralizedWeakness. Subjective Subjective Patient was seen and examined today, he is currently on 2.5 L of oxygen at rest. Patient was seen by speech therapy and underwent a modified barium swallow, speech recommended moderately thickened liquids. Patient's atenolol was increased to 50 mg daily by cardiology. He remains on IV Lasix at this time. Objective Data Objective Data Vital Signs: Vital Signs Temp Pulse Resp BP Pulse Ox O2 Del Method O2 Flow Rate 97.6 F L 97 18 142/85 H 97 Nasal Cannula 2.5 09/11/24 15:50 09/11/24 15:50 09/11/24 15:50 09/11/24 15:50 09/11/24 15:50 09/11/24 15:50 09/11/24 15:50 Oxygen Flow Rate (L/min) 2.5 Oxygen Delivery Method Nasal Cannula Weight: 92.7 kg Body Mass Index (BMI) 28.5 Intake & Output: Intake and Output for Last 24 Hours 09/09/24 09/10/24 09/11/24 23:59 23:59 23:59 Intake Total 1060 / 1060 250 / 250 Output Total 850 / 850 1650 / 1650 Balance 210 / 210 -1400 / -1400 Lab / Micro Data 09/10/24 03:19 09/12/24 05:38 Labs: Laboratory Results - last 24 hr 09/11/24 05:38: Sodium 138, Potassium 3.9, Chloride 96 L, Carbon Dioxide 26.8, Anion Gap 15, BUN 38 H, Creatinine 0.88, Estim Creat Clear Calc 72.70, Est GFR (MDRD) Non-Af 85, BUN/Creatinine Ratio 43.1 H, Glucose 132 H, Calcium 9.0 Micro: Microbiology 09/10/24 04:15 Mucosa - Nose Respiratory Panel (PCR) - Final 09/10/24 03:41 Urine, Random Legionella Antigen - Final 09/10/24 03:41 Urine, Random Streptococcus pneumoniae Antigen (M - Final Radiography Diagnostic Testing: Radiology Impression Echocardiogram 09/10/24 01:46 Interpretation Summary Normal LV size. Left ventricular systolic function is lower limits of normal. The estimated ejection fraction is 53 %. Mild focal mitral valve calcification, bileaflet. Pulmonary artery systolic pressure is 40 mmHg. Ordering Physician: Kristopher Valencia Referring Physician: SHAYNE ZAIDI Performed By: Manju Sahu RCS Physical Exam Const alert, oriented x3 and no apparent distress Constitutional Narrative: Patient appears older than stated age General Appearance: cooperative, well kempt and well developed Orientation / Consciousness: awake, oriented to person, oriented to place and oriented to time HEENT normocephalic, head/scalp atraumatic and moist oral mucous membranes Eyes PERRL, EOMs intact bilaterally and conjunctivae normal Neck supple, no JVD, thyroid normal and no carotid bruits General: trachea midline Resp normal respiratory effort, no retractions and no use of accessory muscles Resp Narrative: Breath sounds are distant bilaterally Auscultation: Negative for rales, rhonchi or wheezes Cardio S1 normal heart sound, S2 normal heart sound, no murmurs, no rub and no gallops Cardio Narrative: Heart rate and rhythm is irregular GI normal to inspection, nondistended, normoactive bowel sounds, soft to palpation,non-tender and non-distended Extremity no clubbing, cyanosis or edema Skin no rashes or lesions noted General Skin Exam: no breakdown Neuro oriented x3, CN's II-XII intact bilaterally, moves all extremities, no focal motor deficits and no sensory deficits noted Sensorium / Orientation: awake and alert Speech: speech normal Psych affect normal Assessment & Plan Assessment/Plan (1) Congestive heart failure: PLAN: Plan 1. Acute exacerbation of chronic congestive heart failure with normal ejection fraction-patient will remain on IV Lasix #2 chronic hypoxic respiratory failure-pulse ox will be monitored, oxygen will be adjusted as needed #3 aspiration pneumonia-patient is currently on Augmentin, speech therapy is seeing the patient, his diet has been changed to regular with nectar thickened liquids #4 paroxysmal atrial fibrillation with RVR-again patient's atenolol was increased by cardiology #5 coronary artery disease-patient will remain on his present medication #6 essential hypertension-patient will remain on his current medication #7 hyperlipidemia-patient is currently on a statin #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, he remains on 81 mg aspirin daily #9 hypothyroidism-patient is on Synthroid Total clinical time spent by myself addressing the patient's medical issues, reviewing all of his data, and collaborating with the patient's care team: 50 minutes Charges/Coding Visit Charges Inpatient E&M: 79369 Subs Hosp L3 09/12/24 1509 <Electronically signed by Aayush Sibley DO> Cosigner Signature (if applicable): CC: ~ Signed [facility] Work Phone: 1(827) 102-862208-06-2025 Discharge summary Author [facility]ush [facility] Note Date/Time September 12, 2024 3:0 3pm [facility] Medical Records Department [address] [place] [address] Instructions for Home/Discharge Instructions 09/12/24 1439 MR#: [id number] Acct: [id number] Name: ARTURO PEDERSEN Rep #:[id number] : 1940 83 From: Aayush Sibley DO PCP: Dr. Shayne Zaidi MD Status:ADM IN Discharge Instructions DC O2, CPAP, BIPAP needs Home O2 Discharge instructions: Yes Type of respiratory needs?: Oxygen Oxygen frequency: Continuous Continuous oxygen liters per minute: 3 L Dressing / Incision Discharge Activity: Return to Normal Activity Weight Bearing Status: Full weight bearing Follow Up Care Test Results: Test results from this visit will be discussed in further detail at your follow- up appointment, if applicable. Discharge Plan Admission Admit Date/Time: 09/10/24 01:26 Primary Reason for Your Visit: Congestive heart failure, aspiration pneumonia, atrial fibrillation Attending Provider: Aayush Sibley Primary Care Provider: Shayne Zaidi Consulting Providers: Kristopher Valencia; Ranjit Fuentes; Douglas Alegre; Yifan Katz;Jasvir Deutsch; Rocky Coronado; Yoseph Winn; Dallas Muller; Kristopher Ray; John Nayak; Rosalino Asif; Patricia Burden; Martínez Mclean; Omar Hidalgo; Arturo Rose NP; Jenny Yancey PA; Moses Alexis Discharge Orders/Prescriptions Prescriptions: New warfarin [Jantoven] 2.5 mg Tablet 5 mg PO 1700 Qty: 60 0RF atenolol 50 mg Tablet 50 mg PO DAILY Qty: 30 0RF amoxicillin-pot clavulanate 875-125 mg Tablet 1 tab PO BIDCM Qty: 11 0RF Rx Instructions: Take with food furosemide [Lasix] 40 mg tablet 40 mg PO BID Qty: 60 0RF Continued levothyroxine 50 MCG tablet 50 mcg PO DAILY atorvastatin 40 MG tablet 40 mg PO QHS spironolactone 25 MG tablet 25 mg PO DAILY potassium chloride 10 mEq tablet extended release 20 meq PO DAILY Patient Comments: TAKE 2 TABLETS BY MOUTH ONCE DAILY WITH BREAKFAST aspirin 81 MG tablet,chewable 81 mg PO DAILY@0800 albuterol sulfate [Ventolin HFA] 90 mcg/actuation HFA aerosol inhaler 2 puff inhalation Q4H PRN PRN (Reason: Wheezing) Qty: 1 0RF fluticasone propion-salmeterol 250-50 mcg/dose blister with device 1 inh inhalation Q12H nitroglycerin 0.3 mg tablet, sublingual 0.3 mg sublingual Q5M PRN (Reason: chest pain) gabapentin 300 mg capsule 300 mg PO BID paroxetine HCl 40 mg tablet 40 mg PO DAILY Discontinued atenolol 50 mg tablet 25 mg PO DAILY warfarin 2.5 mg tablet 2.5 mg PO DAILY furosemide 20 mg tablet 20 mg PO DAILY Referrals / Follow Up: Shayne Zaidi MD [Primary Care Provider] - In 1 Week (Make an appointment to see Dr. Zaidi on 09/17/2024-have your INR rechecked) Jenny Yancey PA [Med Staff - [facility] Practice Prof] - Within 2 Weeks (Call for an appointment) Disposition Disposition (needs filled in before D/C Order can be placed): Home, Self Care 09/12/24 4813<Electronically signed by Aayush Sibley DO>Aayush Sibley DO CC: GABE Rose; Dr. Douglas Alegre MD; Dr. Ranjit Fuentes MD; Dr. Jasvir Deutsch MD; Dr. Yifan Katz MD; Dr. Rocky Coronado MD; Dr. Yoseph Winn MD; Dr. Dallas Muller MD; Dr. Kristopher Ray DO; Dr. Kristopher Valencia DO; Dr. Delta MD; Dr. Shayne Zaidi MD; Dr. Rosalino Asif MD; Dr. Patricia Burden MD; Dr. Omar Hidalgo MD; Dr. Martínez Mclean MD; JI Valencia; JI Burgos ~ Signed [facility] Work Phone: 1(747) 517-166008-06-2025 Progress note [facility] Medical Records Department [address] [place] [address] Progress Note - Hospitalist 09/11/24 1616 MR#: [id number] Acct: [id number] Name: ARTURO PEDERSEN Rep #:[id number] : 1940 83 From: Aayush Sibley DO PCP: Dr. Shayne Zaidi MD Status:ADM IN Location: [place] [address] 1 Reason for Visit Chief Complaint: Shortness of Breath, Cough, Chest Pain, Anxiety and GeneralizedWeakness. Subjective Subjective Patient was seen and examined today, he is currently on 2.5 L of oxygen at rest. Patient was seen by speech therapy and underwent a modified barium swallow, speech recommended moderately thickened liquids. Patient's atenolol was increased to 50 mg daily by cardiology. He remains on IV Lasix at thistime. Objective Data Objective Data Vital Signs: Vital Signs Temp Pulse Resp BP Pulse Ox O2 Del Method O2 Flow Rate 97.6 F L 97 18 142/85 H 97 Nasal Cannula 2.5 09/11/24 15:50 09/11/24 15:50 09/11/24 15:50 09/11/24 15:50 09/11/24 15:50 09/11/24 15:50 09/11/24 15:50 Oxygen Flow Rate (L/min) 2.5 Oxygen Delivery Method Nasal Cannula Weight: 92.7 kg Body Mass Index (BMI) 28.5 Intake & Output: Intake and Output for Last 24 Hours 09/09/24 09/10/24 09/11/24 23:59 23:59 23:59 Intake Total 1060 / 1060 250 / 250 Output Total 850 / 850 1650 / 1650 Balance 210 / 210 -1400 / -1400 Lab / Micro Data 09/10/24 03:19 09/12/24 05:38 Labs: Laboratory Results - last 24 hr 09/11/24 05:38: Sodium 138, Potassium 3.9, Chloride 96 L, Carbon Dioxide 26.8, Anion Gap 15, BUN 38H, Creatinine 0.88, Estim Creat Clear Calc 72.70, Est GFR (MDRD) Non-Af 85, BUN/Creatinine Ratio 43.1 H, Glucose 132 H, Calcium 9.0 Micro: Microbiology 09/10/24 04:15 Mucosa - Nose Respiratory Panel (PCR) - Final 09/10/24 03:41 Urine, Random Legionella Antigen - Final 09/10/24 03:41 Urine, Random Streptococcus pneumoniae Antigen (M - Final Radiography Diagnostic Testing: Radiology Impression Echocardiogram 09/10/24 01:46 Interpretation Summary Normal LV size. Left ventricular systolic function is lower limits of normal. The estimated ejection fraction is 53 %. Mild focal mitral valve calcification, bileaflet. Pulmonary artery systolic pressure is 40 mmHg. Ordering Physician: Kristopher Valencia Referring Physician: SHAYNE ZAIDI Performed By: Manju Sahu RCS Physical Exam Const alert, oriented x3 and no apparent distress Constitutional Narrative: Patient appears older than stated age General Appearance: cooperative, well kempt and well developed Orientation / Consciousness: awake, oriented to person, oriented to place and oriented to time HEENT normocephalic, head/scalp atraumatic and moist oral mucous membranes Eyes PERRL, EOMs intact bilaterally and conjunctivae normal Neck supple, no JVD, thyroid normal and no carotid bruits General: trachea midline Resp normal respiratory effort, no retractions and no use of accessory muscles Resp Narrative: Breath sounds are distant bilaterally Auscultation: Negative for rales, rhonchi or wheezes Cardio S1 normal heart sound, S2 normal heart sound, no murmurs, no rub and no gallops Cardio Narrative: Heart rate and rhythm is irregular GI normal to inspection, nondistended, normoactive bowel sounds, soft to palpation,non-tender and non-distended Extremity no clubbing, cyanosis or edema Skin no rashes or lesions noted General Skin Exam: no breakdown Neuro oriented x3, CN's II-XII intact bilaterally, moves all extremities, no focal motor deficits and no sensory deficits noted Sensorium / Orientation: awake and alert Speech: speech normal Psych affect normal Assessment & Plan Assessment/Plan (1) Congestive heart failure: PLAN: Plan 1. Acute exacerbation of chronic congestive heart failure with normal ejection fraction-patient will remain on IV Lasix #2 chronic hypoxic respiratory failure-pulse ox will be monitored, oxygen will be adjusted as needed #3 aspiration pneumonia-patient is currently on Augmentin, speech therapy is seeing the patient, his diet has been changed to regular with nectar thickened liquids #4 paroxysmal atrial fibrillation with RVR-again patient's atenolol was increased by cardiology #5 coronary artery disease-patient will remain on his present medication #6 essential hypertension-patient will remain on his current medication #7 hyperlipidemia-patient is currently on a statin #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, he remains on 81 mgaspirin daily #9 hypothyroidism-patient is on Synthroid Total clinical time spent by myself addressing the patient's medical issues, reviewing all of his data, and collaborating with the patient's care team: 50 minutes Charges/Coding Visit Charges Inpatient E&M: 03132 Subs Hosp L3 09/12/24 1509 Cosigner Signature (if applicable): CC: ~ Signed [facility]08-06-2025 Discharge summary [facility] Medical Records Department [address] [place] [address] Instructions for Home/Discharge Instructions 09/12/24 1439 MR#: [id number] Acct: [id number] Name: ARTURO PEDERSEN Rep #:[id number] : 1940 83 From: Aayush Sibley DO PCP: Dr. Shayne Zaidi MD Status:ADM IN Discharge Instructions DC O2, CPAP, BIPAP needs Home O2 Discharge instructions: Yes Type of respiratory needs?: Oxygen Oxygen frequency: ContinuousContinuous oxygen liters per minute: 3 L Dressing / Incision Discharge Activity: Return to Normal Activity Weight Bearing Status: Full weight bearing Follow Up Care Test Results: Test results from this visit will be discussed in further detail at your follow- up appointment, if applicable. Discharge Plan Admission Admit Date/Time: 09/10/24 01:26 Primary Reason for Your Visit: Congestive heart failure, aspiration pneumonia, atrial fibrillation Attending Provider: Aayush Sibley Primary Care Provider: Shayne Zaidi Consulting Providers: Kristopher Valencia; Ranjit Fuentes; Douglas Alegre; Yifan Katz;Jasvir Deutsch; Rocky Coronado; Yoseph Winn; Dallas Muller; Kristopher Ray; John Nayak; Rosalino Asif; Patricia Burden; Martínez Mclean; Omar Hidalgo; Arturo Rose NP; Jenny Yancey; Moses Alexis Discharge Orders/Prescriptions Prescriptions: New warfarin [Jantoven] 2.5 mg Tablet 5 mg PO 1700 Qty: 60 0RF atenolol 50 mg Tablet 50 mg PO DAILY Qty: 30 0RF amoxicillin-pot clavulanate 875-125 mg Tablet 1 tab PO BIDCM Qty: 11 0RF Rx Instructions: Take with food furosemide [Lasix] 40 mg tablet 40 mg PO BID Qty: 60 0RF Continued levothyroxine 50 MCG tablet 50 mcg PO DAILY atorvastatin 40 MG tablet 40 mg PO QHS spironolactone 25 MG tablet 25 mg PO DAILY potassium chloride 10 mEq tablet extended release 20 meq PO DAILY Patient Comments: TAKE 2 TABLETS BY MOUTH ONCE DAILY WITH BREAKFAST aspirin 81 MG tablet,chewable 81 mg PO DAILY@0800 albuterol sulfate [Ventolin HFA] 90 mcg/actuation HFA aerosol inhaler 2 puff inhalation Q4H PRN PRN (Reason: Wheezing) Qty: 1 0RF fluticasone propion-salmeterol 250-50 mcg/dose blister with device 1 inh inhalation Q12H nitroglycerin 0.3 mg tablet, sublingual 0.3 mg sublingual Q5M PRN (Reason: chest pain) gabapentin 300 mg capsule 300 mg PO BID paroxetine HCl 40 mg tablet 40 mg PO DAILY Discontinued atenolol 50 mg tablet 25 mg PO DAILY warfarin 2.5 mg tablet 2.5 mg PO DAILY furosemide 20 mg tablet 20 mg PO DAILY Referrals / Follow Up: Shayne Zaidi MD [Primary Care Provider] - In 1 Week (Make an appointment to see Dr. Zaidi on 09/17/2024-have your INR rechecked) Jenny Yancey PA [Med Staff - [facility] Practice Prof] - Within 2 Weeks (Call for an appointment) Disposition Disposition (needs filled in before D/C Order can be placed): Home, Self Care 09/12/24 1503Mark Maryjo MENDOZA CC: MAINTENANCE SUPERVISOR MECHANICALShena Rose; Dr. Douglas Alegre MD; Dr. Ranjit Fuentes MD; Dr. Jasvir Deutsch MD; Dr. Yifan Katz MD; Dr. Rocky Coronado MD; Dr. Yoseph Winn MD; Dr. Dallas Muller MD; Dr. Kristopher Ray DO; Dr. Kristopher Valencia DO; Dr. Delta MD; Dr. Shayne Zaidi MD; Dr. Rosalino Asif MD; Dr. Patricia Burden MD; Dr. Omar Hidalgo MD; Dr. Martínez Mclean MD; JI Valencia;JI Burgos ~ Signed [facility]08-06-2025 Hospital Discharge instructionsAdditional Instructions Date of Discharge: 09/12/24[facility] Work Phone: 1(773) 755-519908-06-2025 Radiology Diagnostic study note [facility] Imaging Services [address] [place] [address] Chest PA and Lateral MR#: [id number] Acct: [id number] Name: ARTURO PEDERSEN Rep #: [id number] : 1940 M 83 From: Fatmata Wheeler MD PCP: Dr. Shayne Zaidi MD Status: ADM IN Study:Chest PA and Lateral Date of Exam: 09/12/24 Exam# [id number] Ordering Dr: Aayush Adams DO PROCEDURE: CHEST PA AND LATERAL 09/12/2024 REASON FOR EXAM: HYPOXIA TECHNIQUE: CHEST PA AND LATERAL COMPARISON: CT 09/10/2024 FINDINGS: Normal heart size. Status post CABG. Elevated right hemidiaphragm. Bibasilar airspace disease, better seen on recent CT, atelectasis/consolidation. No effusion or pneumothorax. L2 compression fracture, no evidence of acuity. RAD/Chest PA and Lateral IMPRESSION: Bibasilar airspace disease, better seen on recent comparison CT Reading Location: [facility]- CC: Dr. Shayne Zaidi MD; Dr. Aayush Sibley DO ~ Shell Trim Operator: Signed [facility]08-05-2025 Procedure note [facility] Speech Pathology [address] [place] [address] Modified Barium Swallow Study MR#: [id number] Acct: [id number] Name: ARTURO PEDERSEN Rep #:[id number] : 1940 83 From: Uyen Silva Modified Barium Swallow Patient Information Study Date: 09/11/24 Study Time: 08:30 Direct Billable Minutes: 120 Total Minutes procedure & reportin Diagnosis: J69.0 - Pneumonitis due to inhalation of food and vomit Referring Physician: Aayush Sibley Medical History: Mr. Pedersen is an 83-year-old male with a complex medical history, including CAD(CABG x2, stents x2), paroxysmal atrial fibrillation (on warfarin), hypertension, hyperlipidemia, hypothyroidism, COPD (Stage 2), central sleep apnea (on CPAP), CVA with right hemiparesis, left vocal cord paralysis, dysp hagia, peripheral neuropathy, GERD, depression, prostate cancer (s/p radiation), and osteoarthritis. He is overweight (BMI 29.3) and a former smoker (50 pack- years, quit 1992). He presented with 2?3 days of progressive dyspnea, productive cough, pleuritic chest pain, fatigue,and anxiety. He denied fever, chills, palpitations, or GI/ symptoms. A CXR at [place] [facility] showed right hemidiaphragm elevation and left perihilar opacity suggestive of pneumonia. Labs revealed elevatedpro-BNP (2400), WBC 10.2K, and a subtherapeutic INR (1.4). EKG showed atrial fibrillation with HR ~106 bpm. He was treated with IV antibiotics, steroids, nebulizers, diuretics, and lorazepam, then admitted to PCU. Speech therapy was consulted due to concern for aspiration pneumonia (CT chest: bilateral airspace disease). Mr. Pedersen has a history of dysphagia and cognitive deficits, and in 2020, it was recommended that he follow a modified diet with nectar-thick liquids. However, he did not adhere to this rec ommendation and was admitted on regular textures and thin liquids. Given his history of dysphagia, left vocal cord paralysis, current pneumonia, and signs ofaspiration at bedside, a Modified Barium Swallow Study (MBSS) is recommended forobjective swallow assessment. Current Diet Ordered: Regular textures / Thin liquids Mental Status: Impaired Respiratory Status: Oxygenating on 3L/M nasal cannula Penetration-Aspiration Scale Penetration-Aspiration Scale: OBJECTIVE ASSESSMENT OF SWALLOW FUNCTION (QUANTITATIVE ? PER TRIAL): PENETRATION / ASPIRATION SCALE (MACE): 1 = does not enter airway 2 = enters airway/above vocal folds/ejected 3 = enters airway/above vocal folds/not ejected 4 = enters airway/contacts vocal folds/ejected 5 = enters airway/contacts vocal folds/not ejected 6 = enters airway/below vocal folds/ejected 7 = enters airway/below vocal folds/not ejected despite effort 8 = enters airway/below vocal folds/no effort VIDEOFLOROSCOPIC SCALE SCORE (MACE): Grade I = aspiration of material that has penetrated into the laryngeal vestibule, intact cough reflex Grade II = aspiration < 10 % of the bolus, intact cough reflex Grade III = aspiration of < 10 % of the bolus, reduced cough reflex or aspiration of > 10 % of the bolus, intact cough reflex Grade IV = aspiration of > 10 % of the bolus, reduced cough reflex Penetration-Aspiration Scale Score Thin Liquid via teaspoon: Result: 5= enters airways/contacts vocal folds/not ejected Thin Liquid via teaspoon Trial 2: Result: 5= enters airways/contacts vocal folds/not ejected Thin Liquid via small single sip: cup: Result: 5= enters airways/contacts vocal folds/not ejected Thin Liquid via small single sip: cup Trial 2: Result: 5= enters airways/contacts vocal folds/not ejected Morse Thick Liquid via small single sip: cup: Result: 2= enter airway/above vocal folds/ejected Morse Thick Liquid via small single sip: cup Trial 2: Result: 3= enters airways/above vocal folds/not ejected Morse Thick Liquid via small single sip: cup Trial 3: Result: 1= does not enter airway Thin Liquid via small single sip: cup Trial 3: Result: 3= enters airways/above vocal folds/not ejected Thin Liquid via small single sip: cup Trial 4: Result: 5= enters airways/contacts vocal folds/not ejected Honey Thick Liquid via small single sip: cup: Result: 1= does not enter airway Pudding via teaspoon: Result: 1= does not enter airway Cookie: Result: 1= does not enter airway Morse Thick Liquid via small single sip: cup Trial 4: Result: 1= does not enter airway Thin Liquid via small single sip: cup Trial 5: Result: 8= enters airway/below vocal folds/no effort Oral Phase Labial Seal: No Labial Escape Tongue Control During Bolus Hold: Posterior escape of greater than half of bolus Bolus Preparation/Mastication: Slow prolonged chewing/mashing with complete recollection Bolus Transport/Lingual Motion: Delayed initiation of tongue motion Oral Residue: Trace residue lining oral structures Pharyngeal Phase Initiation of Pharyngeal Swallow: Bolus head in pyriforms Soft Palate Elevation: No bolus between soft palate and pharyngeal wall Laryngeal Elevation: Partial superior movement thyroid cart/partial apprx aryt- epig petiole Anterior Hyoid Excursion: Partial anterior movement Epiglottic Movement: Partial inversion Laryngeal Vestibule Closure at Height of Swallow: Incomplete; narrow column of air/contrast in laryngeal vestibule Pharyngeal Stripping Wave: Present - diminished Pharyngoesophageal Segment Opening: Parital distension and partial duration; parital obstruction offlow Tongue Base Retraction: Wide column of contrast between tongue base & post. 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 During the MBSS, the patient demonstrated slowed mastication of a cookie but achieved complete oral clearance, with only trace residue remaining post-swallow. Penetration to the vocal cords was observed with both thin liquids by teaspoon and bycup. The patient exhibits decreased bolus control, with premature spillage into the pyriform sinuses before theswallow initiates. This spillage spills into theairway, causing laryngeal penetration to the cords.In some trials, the bolus enters the airway prior to the swallow due to delayed pharyngeal swallow onset timing. There is also decreased airway closure, likely due to incomplete laryngeal elevation and closure during the swallow, as well as reduced anterior hyoid excursion. Penetration with thin liquids consistently occurs both before and during the swallow, with definite aspiration observed in one trial with thinliquids by cup, attributed to delayed pharyngeal swallow onset and incomplete laryngeal elevation/closure. Aspiration cannot be ruled out in other trials due to the patient's body habitus, though aspiration is highly suspected. Improved airway protection was noted with nectar-thickand honey-thick liquids. Recommendations Diet: Regular Textures and Mildly Thick Liquids Compensatory Strategies: Small Bites, Small Sips, Slow Rate, Feed only when alert, Multiple Swallows, Alternate bites/solids and sips/liquids, Sitting upright and Remain sitting upright for 30 minutes after PO intake Supervision: 1:1 Direct Supervision Recommend Repeat Modified Barium Swallow: TBD Need for Skilled Speech Therapy Services: Yes Education Completed: 1. Described result of evaluation., 2. Pt understands evaluation & agrees with goals and treatment plan. and 4. Family/caregivers understand evaluation & agree w/ goals & tx plan. Status Active ST Patient: Active Contact Information [facility] Speech Therapy:: Uyen Silva M.A., CCC-BLUE SPLIT TRIMMER Speech-Language Pathologist [facility] [phone]? ?FAX [phone]? [email or web address] [address] [place] [address]? ?[place] [address] 09/11/24 1330 > Date/Time Uyen Silva Co-Signature Required for all Medicare patients Date/Time Co-Signature CC: ~ [facility]08-05-2025 Progress note Author Dallas Muller [facility] Note Date/Time September 11, 2024 7:4 4am [facility] Medical Records Department [address] [place] [address] Progress Note - Cardiology 09/11/24740 MR#: [id number] Acct: [id number] Name: ARTURO PEDERSEN Rep #:[id number] : 1940 83 From: Dallas Muller MD PCP: Dr. Shayne Zaidi MD Status:ADM IN Location: [place] [address]- Subjective Subjective Patient seen and evaluated Objective Data Vital Signs: Vital Signs Temp Pulse Resp BP Pulse Ox O2 Del Method O2 Flow Rate 97.4 F L 88 20 H 148/84 H 93 Nasal Cannula 3 09/11/24 05:02 09/11/24 07:27 09/11/24 07:27 09/11/24 05:02 09/11/24 07:27 09/11/24 07:27 09/11/24 07:27 Oxygen Flow Rate (L/min) 3 Oxygen Delivery Method Nasal Cannula Weight: 204 lb 5.896 oz Body Mass Index (BMI) 28.5 Intake & Output: Intake and Output for Last 24 Hours 09/09/24 09/10/24 09/11/24 23:59 23:59 23:59 Intake Total 1060 / 1060 250 / 250 Output Total 850 / 850 1200 / 1200 Balance 210 / 210 -950 / -950 Lab / Micro Data 09/10/24 03:19 09/11/24 05:38 Labs: Laboratory Results - last 24 hr 09/10/24 07:19: Troponin T Hi Sens 4Hr 6 09/11/24 05:38: Sodium 138, Potassium 3.9, Chloride 96 L, Carbon Dioxide 26.8, Anion Gap 15, BUN 38 H, Creatinine 0.88, Estim Creat Clear Calc 72.70, Est GFR (MDRD) Non-Af 85, BUN/Creatinine Ratio 43.1 H, Glucose 132 H, Calcium 9.0 Micro: Microbiology 09/10/24 04:15 Mucosa - Nose Respiratory Panel (PCR) - Final 09/10/24 03:41 Urine, Random Legionella Antigen - Final 09/10/24 03:41 Urine, Random Streptococcus pneumoniae Antigen (M - Final Cardiology Labs/Tests 09/11/24 05:38: Sodium 138, Potassium 3.9, Chloride 96 L, Carbon Dioxide 26.8, Anion Gap 15, BUN 38 H, Creatinine 0.88, Est GFR (MDRD) Non-Af 85, BUN/Creatinine Ratio 43.1 H, Glucose 132 H, Calcium 9.0 Rhythm: EKG: ECHO: Stress Test: Cardiac Cath: PCI: CT Surgery: Holter monitor: EPS: PPM: CXR: Chest CT Scan: Radiography Diagnostic Testing: Radiology Impression Echocardiogram 09/10/24 01:46 Interpretation Summary Normal LV size. Left ventricular systolic function is lower limits of normal. The estimated ejection fraction is 53 %. Mild focal mitral valve calcification, bileaflet. Pulmonary artery systolic pressure is 40 mmHg. Ordering Physician: Kristopher Valencia Referring Physician: SHAYNE ZAIDI Performed By: Manju Sahu RCS Physical Exam Const alert, oriented x3 and no apparent distress General Appearance: cooperative HEENT hearing grossly normal bilaterally Head and Scalp: atraumatic Eyes EOMs intact bilaterally Neck General: normal visual inspection Chest inspection of chest normal and palpation of chest normal Resp normal respiratory effort Auscultation: clear to auscultation bilaterally Cardio S1 normal heart sound and S2 normal heart sound Jugular Venous Distention: JVD Rhythm: abnormal rhythm irregularly irregular GI normal to inspection, nondistended, normoactive bowel sounds Extremity normal capillary refill and no pedal edema Peripheral Pulses: Yes pulses 2+ throughout and femoral pulses present Skin no rashes or lesions noted Neuro oriented x3 and CN's II-XII intact bilaterally Psych Appearance: grossly normal and appropriate Assessment & Plan Assessment/Plan (1) Paroxysmal atrial fibrillation with RVR: PLAN: Patient presents with paroxysmal atrial fibrillation with a rapid ventricular response rate. It appears that he has a pulmonary condition at thistime. My recommendation will be to continue the current management * It is not clear to me whether he is on warfarin for financial reasons or preference. * Will continue the current medical therapy. * Heart rate appears to be under better control at this time I would not make any changes. (2) History of coronary artery stent placement: PLAN: He does have a history of coronary disease status post angioplasty and stenting in 2021 of the distal left main and then of the circumflex artery. Thesaphenous vein graft to the obtuse marginal branch and the ECHEVARRIA to the LAD were noted to be patent there was an occluded right coronary artery with [id number] collaterals. * In light of his negative troponins and his nonacute EKG changes we will continue to maximally medically manage the above. (3) HTN (hypertension): PLAN: His blood pressure is under good control at this time and I would not recommend we make any other changes. Thank you for allowing me to participate in the care of your patient. Please don't hesitate to call if any issues arise. (4) Acute exacerbation of chronic heart failure: PLAN: He does have evidence of congestive heart failure and he will continue on the spironolactone, intravenous Lasix for now, and the beta-karis. * An echocardiogram demonstrated an ejection fraction of 53%. (5) Hyperlipidemia: PLAN: He does have a history of hyperlipidemia. In face of his coronary diseasewe will continue with high intensity statin. 09/11/24 8063 <Electronically signed by Dallas Muller MD> Cosigner Signature (if applicable): CC: ~ Signed [facility] Work Phone: 1(170) 122-301908-05-2025 Progress note [facility] Medical Records Department [facility] [place] [address] Progress Note - Cardiology 09/11/24 0776 MR#: [id number] Acct: [id number] Name: ARTURO PEDERSEN Rep #:[id number] : 1940 83 From: Dallas Muller MD PCP: Dr. Shayne Zaidi MD Status:ADM IN Location: [place] [address] Subjective Subjective Patient seen and evaluated Objective Data Vital Signs: Vital Signs Temp Pulse Resp BP Pulse Ox O2 Del Method O2 Flow Rate 97.4 F L 88 20 H 148/84 H 93 Nasal Cannula 3 09/11/24 05:02 09/11/24 07:27 09/11/24 07:27 09/11/24 05:02 09/11/24 07:27 09/11/24 07:27 09/11/24 07:27 Oxygen Flow Rate (L/min) 3 Oxygen Delivery Method Nasal Cannula Weight: 204 lb 5.896 oz Body Mass Index (BMI) 28.5 Intake & Output: Intake and Output for Last 24 Hours 09/09/24 09/10/24 09/11/24 23:59 23:59 23:59 Intake Total 1060 / 1060 250 / 250 Output Total 850 / 850 1200 / 1200 Balance 210 / 210 -950 / -950 Lab / Micro Data 09/10/24 03:19 09/11/24 05:38 Labs: Laboratory Results - last 24 hr 09/10/24 07:19: Troponin T Hi Sens 4Hr 6 09/11/24 05:38: Sodium 138, Potassium 3.9, Chloride 96 L, Carbon Dioxide 26.8, Anion Gap 15, BUN 38H, Creatinine 0.88, Estim Creat Clear Calc 72.70, Est GFR (MDRD) Non-Af 85, BUN/Creatinine Ratio 43.1 H, Glucose 132 H, Calcium 9.0 Micro: Microbiology 09/10/24 04:15 Mucosa - Nose Respiratory Panel (PCR) - Final 09/10/24 03:41 Urine, Random Legionella Antigen - Final 09/10/24 03:41 Urine, Random Streptococcus pneumoniae Antigen (M - Final Cardiology Labs/Tests 09/11/24 05:38: Sodium 138, Potassium 3.9, Chloride 96 L, Carbon Dioxide 26.8, Anion Gap 15, BUN 38H, Creatinine 0.88, Est GFR (MDRD) Non-Af 85, BUN/Creatinine Ratio 43.1 H, Glucose 132 H, Calcium 9.0 Rhythm: EKG: ECHO: Stress Test: Cardiac Cath: PCI: CT Surgery: Holter monitor: EPS: PPM: CXR: Chest CT Scan: Radiography Diagnostic Testing: Radiology Impression Echocardiogram 09/10/24 01:46 Interpretation Summary Normal LV size. Left ventricular systolic function is lower limits of normal. The estimated ejection fraction is 53 %. Mild focal mitral valve calcification, bileaflet. Pulmonary artery systolic pressure is 40 mmHg. Ordering Physician: Kristopher Valencia Referring Physician: SHAYNE ZAIDI Performed By: Manju Sahu RCS Physical Exam Const alert, oriented x3 and no apparent distress General Appearance: cooperative HEENT hearing grossly normal bilaterally Head and Scalp: atraumatic Eyes EOMs intact bilaterally Neck General: normal visual inspection Chest inspection of chest normal and palpation of chest normal Resp normal respiratory effort Auscultation: clear to auscultation bilaterally Cardio S1 normal heart sound and S2 normal heart sound Jugular Venous Distention: JVD Rhythm: abnormal rhythm irregularly irregular GI normal to inspection, nondistended, normoactive bowel sounds Extremity normal capillary refill and no pedal edema Peripheral Pulses: Yes pulses 2+ throughout and femoral pulses present Skin no rashes or lesions noted Neuro oriented x3 and CN's II-XII intact bilaterally Psych Appearance: grossly normal and appropriate Assessment & Plan Assessment/Plan (1) Paroxysmal atrial fibrillation with RVR: PLAN: Patient presents with paroxysmal atrial fibrillation with a rapid ventricular response rate. It appears that he has a pulmonary condition at thistime. My recommendation will be to continue the current management * It is not clear to me whether he is on warfarin for financial reasons or preference. * Will continue the current medical therapy. * Heart rate appears to be under better control at this time I would not make any changes. (2) History of coronary artery stent placement: PLAN: He does have a history of coronary disease status post angioplasty and stenting in 2021 of the distal left main and then of the circumflex artery. Thesaphenous vein graft to the obtuse marginalbranch and the ECHEVARRIA to the LAD were noted to be patent there was an occluded right coronary artery with [id number] collaterals. * In light of his negative troponins and his nonacute EKG changes we will continue to maximally medically manage the above. (3) HTN (hypertension): PLAN: His blood pressure is under good control at this time and I would not recommend we make any other changes. Thank you for allowing me to participate in the care of your patient. Please don't hesitate to callif any issues arise. (4) Acute exacerbation of chronic heart failure: PLAN: He does have evidence of congestive heart failure and he will continue on the spironolactone,intravenous Lasix for now, and the beta-karis. * An echocardiogram demonstrated an ejection fraction of 53%. (5) Hyperlipidemia: PLAN: He does have a history of hyperlipidemia. In face of his coronary diseasewe will continue with high intensity statin. 09/11/2444 Cosigner Signature (if applicable): CC: ~ Signed [facility]08-04-2025 Progress note Author Aayush [facility] Note Date/Time September 10, 2024 7:2 6pm [facility] Medical Records Department [address] [place] [address] Progress Note - Hospitalist 09/10/241924 MR#: [id number] Acct: [id number] Name: ARTURO PEDERSEN Rep #:[id number] : 1940 83 From: Aayush Sibley DO PCP: Dr. Shayne Zaidi MD Status:ADM IN Location: [place] [address] Hospitalist Note Patient was seen and examined briefly today, I have reviewed his medical record,I think that it is unlikely the patient has a significant aspiration pneumonia, nonetheless, I have elected to keep the patient on antibiotics for now but transition him over to oral antibiotics. I talked briefly with cardiology, theyrecommended adjusting the patient's beta-karis. 09/10/241925 <Electronically signed by Aayush Sibley DO> Cosigner Signature (if applicable): CC: ~ Signed [facility] Work Phone: [phone] Progress note [facility] Medical Records Department [address] [place] [address] Progress Note - Hospitalist 09/10/241924 MR#: [id number] Acct: [id number] Name: ARTURO PEDERSEN Rep #:[id number] : 1940 83 From: Aayush Sibley DO PCP: Dr. Shayne Zaidi MD Status:ADM IN Location: [place] [address] Hospitalist Note Patient was seen and examined briefly today, I have reviewed his medical record,I think that it is unlikely the patient has a significant aspiration pneumonia, nonetheless, I have elected to keep thepatient on antibiotics for now but transition him over to oral antibiotics. I talked briefly with cardiology, theyrecommended adjusting the patient's beta-karis. 09/10/241925 Cosigner Signature (if applicable): CC: ~ Signed [facility]08-04-2025 Consult note Author Dallas Muller [facility] Note Date/Time September 10, 2024 8:0 3am [facility] Medical Records Department [address] [place] [address] Consultation - Cardiology 09/10/24750 MR#: [id number] Acct: [id number] Name: ARTURO PEDERSEN Rep #:[id number] : 1940 83 From: Dallas Muller MD PCP: Dr. Shayne Zaidi MD Status:ADM IN Location: [place] [address] Assessment & Plan Assessment/Plan (1) Paroxysmal atrial fibrillation with RVR: PLAN: Patient presents with paroxysmal atrial fibrillation with a rapid ventricular response rate. It appears that he has a pulmonary condition at thistime. My recommendation will be to continue the current management and increasethe beta-karis to 50 mg a day and restart his anticoagulation. * It is not clear to me whether he is on warfarin for financial reasons or preference. (2) History of coronary artery stent placement: PLAN: He does have a history of coronary disease status post angioplasty and stenting in 2021 of the distal left main and then of the circumflex artery. Thesaphenous vein graft to the obtuse marginal branch and the ECHEVARRIA to the LAD were noted to be patent there was an occluded right coronary artery with [id number] collaterals. * In light of his negative troponins and his nonacute EKG changes we will continue to maximally medically manage the above. (3) HTN (hypertension): PLAN: His blood pressure is under good control at this time and I would not recommend we make any other changes. Thank you for allowing me to participate in the care of your patient. Please don't hesitate to call if any issues arise. (4) Acute exacerbation of chronic heart failure: PLAN: He does have evidence of congestive heart failure and he will continue on the spironolactone, intravenous Lasix for now, and the beta-karis. * An echocardiogram is being performed to assess his ventricular function. (5) Hyperlipidemia: PLAN: He does have a history of hyperlipidemia. In face of his coronary diseasewe will continue with high intensity statin. HPI Consult Data Date of Consult: 09/10/24 HPI Narrative HPI Narrative: ARTURO PEDERSEN, is a 83 M who we are asked to see due to atrial fibrillation with a rapid ventricular response rate. He does have a history of hypertension, hyperlipidemia, coronary artery disease status post coronary bypass surgery in 1992 with a ECHEVARRIA to the LAD and a saphenous vein graft to the circumflex artery. He was here in 2021 and had angioplasty and stenting to the circumflex artery. He also at that time was noted to have paroxysmal atrial fibrillation. He however has not had any office follow-up since then. He apparently has had a history of cerebrovascular accident with right hemiparesis chronic HOARSENESS and elevated right hemidiaphragm. Approximately 2 to 3 days prior to admission he had an onset of dyspnea on exertion and a congestive cough with brownish sputum and intermittent difficultybreathing. He denied any pain per se. [place] was [place] and a chest x-ray that I reviewed and right hemidiaphragm elevation which was chronic but read as pneumonia he had an elevated proBNP of 2400. He was treated with antibiotics steroids Lasix and an EKG demonstrated atrial fibrillation with a rate of 106 bpm and with his intermittent pleuritic chest discomfort he was admitted here and cardiology was called for further evaluationand management. This morning he appears to be fairly stable his heart rate is in the 90s and he is pleasantly confused but no other problems. 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) Central sleep apnea Stage 2 moderate COPD by GOLD classification HTN (hypertension) Hoarseness left vocal cord paralysis Home Medications ?Medication ?Instructions ?Recorded ?Last Taken ?Type levothyroxine 50 mcg tablet 50 mcg PO DAILY thyroid 12/14/21 History atorvastatin 40 mg tablet 40 mg PO QHS cholesterol 12/14/21 History spironolactone 25 mg tablet 25 mg PO DAILY diuretic 12/14/21 History aspirin 81 mg chewable tablet 81 mg PO DAILY@0800 heal th 12/14/21 12/14/21 History atenolol 50 mg tablet 25 mg PO DAILY bp 12/14/21 1 02/13/21 History potassium chloride 10 mEq 20 meq PO DAILY supplement 1 02/13/21 12/14/21 History tablet,extended release albuterol sulfate 90 mcg/actuation 2 puff inhalation Q 4H PRN PRN 03/15/23 Unknown Rx aerosol inhaler (Ventolin HFA) Wheezing ##1 fluticasone 250 mcg-salmeterol 50 1 inh inhalation Q12 H 09/10/24 Unknown History mcg/dose blistr powdr for inhalation furosemide 20 mg tablet 20 mg PO DAILY 09/10/24 Unkn own History gabapentin 300 mg capsule 300 mg PO BID 09/10/24 Unkno wn History nitroglycerin 0.3 mg sublingual 0.3 mg sublingual Q5M PRN chest 09/10/24 Unknown History tablet pain paroxetine HCl 40 mg tablet 40 mg PO DAILY 09/10/24 Un known History warfarin 2.5 mg tablet 2.5 mg PO DAILY 09/10/24 Unk nown History Allergy/AdvReac Type Severity Reaction Status Date / [...] substance use type: does not use ROS Constitutional Constitutional: Denies fever(s) or weight loss Eyes Eyes: Reports systems reviewed and no addt'l complaints, except as documented ENT HEENT: Reports systems reviewed and no addt'l complaints, except as documented Cardiovascular Cardiovascular: Reports dyspnea at rest, dyspnea on exertion and palpitations; Denies chest pain at rest, chest pain with activity, edema or paroxysmal nocturnal dyspnea Respiratory/Chest Respiratory/Chest: Reports shortness of breath at rest and shortness of breath with exertion; Denies dyspnea on exertion or productive cough Gastrointestinal Gastrointestinal: Denies change in bowel habits, nausea, vomiting or weight changes Genitourinary Genitourinary: Denies difficulty urinating Musculoskeletal Musculoskeletal: Denies joint stiffness or muscle weakness Integumentary Integumentary: Denies lesions Neurologic Neurologic: Denies dizziness or syncope Psychiatric Psychiatric: Denies anxiety Endocrine Endocrinology: Denies excessive sweating or fatigue Hematologic/Lymphatic Hematologic/Lymphatic: Denies anemia Allergic/Immunologic Allergic/Immunologic: Denies seasonal rhinorrhea Physical Exam Const alert, oriented x3 and no apparent distress General Appearance: cooperative HEENT hearing grossly normal bilaterally Head and Scalp: atraumatic Eyes EOMs intact bilaterally Neck General: normal visual inspection Chest inspection of chest normal and palpation of chest normal Resp normal respiratory effort Auscultation: clear to auscultation bilaterally Cardio S1 normal heart sound and S2 normal heart sound Jugular Venous Distention: JVD Rhythm: abnormal rhythm irregularly irregular GI normal to inspection, nondistended, normoactive bowel sounds Extremity normal capillary refill and no pedal edema Peripheral Pulses: Yes pulses 2+ throughout and femoral pulses present Skin no rashes or lesions noted Neuro oriented x3 and CN's II-XII intact bilaterally Psych Appearance: grossly normal and appropriate Risk Stratification Risk Stratification Applicable: No Objective Data Vital Signs: Vital Signs Temp Pulse Resp BP Pulse Ox O2 Del Method O2 Flow Rate 98 F 62 20 H 135/80 H 96 Nasal Cannula 2 09/10/24 02:00 09/10/24 02:00 09/10/24 05:46 09/10/24 02:00 09/10/24 05:46 09/10/24 05:46 09/10/24 05:46 Oxygen Flow Rate (L/min) 2 Oxygen Delivery Method Nasal Cannula Weight: 209 lb 14.081 oz Body Mass Index (BMI) 29.2 Intake & Output: Intake and Output for Last 24 Hours 09/08/24 09/09/24 09/10/24 23:59 23:59 23:59 Intake Total 400 / 400 Output Total 400 / 400 Balance 0 / 0 Lab / Micro Data 09/10/24 03:19 09/10/24 03:19 Labs: Laboratory Results - last 24 hr 09/10/24 03:19: WBC 10.8, RBC 4.61, Hgb 14.3, Hct 44.1, MCV 95.7 H, MCH 31.0, MCHC 32.4, RDW Std Deviation 47.6 H, RDW Coeff of Erica 13.2, Plt Count 224, MPV 9.2, Immature Gran % (Auto) 0.300, Neut % (Auto) 94.5 H, Lymph % (Auto) 2.2 L, [place] % (Auto) 2.8, Eos % (Auto) 0.0, Baso % (Auto) 0.2, Absolute Neuts (auto) 10.2 H, Absolute Lymphs (auto) 0.24 L, Nucleated RBC % 0, PT 18.7 H, INR 1.5, D-Dimer Quant (PE/DVT) 0.39, Sodium 139, Potassium 3.9, Chloride 98, Carbon Dioxide 25.7, Anion Gap 16 H, BUN 21 H, Creatinine 0.75, Estim Creat Clear Calc 80.95, Est GFR (MDRD) Non-Af 89, BUN/Creatinine Ratio 27.5 H, Glucose 174 H, Hemoglobin A1c 5.5, Calcium 8.9, Phosphorus 2.7, Magnesium 2.1, Total Bilirubin 0.73, AST 41 H, ALT 34, Alkaline Phosphatase 199 H, Troponin T High Sens 8, NT pro BNP II 3825 H, Total Protein 7.6, Albumin 3.7, Globulin 3.9, Albumin/Globulin Ratio 0.9, Triglycerides 42, Cholesterol 85, LDL Cholesterol, Calc 40, VLDL Cholesterol 8, HDL Cholesterol 37 L, Cholesterol/HDL Ratio 2.30, Vitamin B12 515, Serum Folate 7.94, TSH 0.518 09/10/24 03:41: Urine Color Yellow, Urine Clarity Clear, Urine pH 6.0, Ur Specific [place] 1.010, Urine Protein Negative, Urine Glucose (UA) Normal, UrineKetones Negative, Urine Occult Blood 10 H, Urine Nitrite Negative, Urine Bilirubin Negative, Urine Urobilinogen Normal, Ur Leukocyte Esterase Negative, Urine RBC 0-5 SEEN, Urine WBC 0 SEEN, Ur Squamous Epith Cells 0-5 SEEN, Urine Bacteria 1+, Urine Mucus 0 SEEN 09/10/24 04:55: Troponin T Hi Sens 2 Hr 7 Micro: Microbiology 09/10/24 03:41 Urine, Random Legionella Antigen - Final 09/10/24 03:41 Urine, Random Streptococcus pneumoniae Antigen (M - Final ABG Data ABG results: ABG 09/10/24 03:35 Specimen Type ARIEL Sample Site Not entered O2 % 3.0 VBG pH 7.41 VBG pO2 68 H VBG HCO3 35 H VBG Total CO2 37 H VBG O2 Sat (Calc) 93 H VBG Base Excess 10 H POC Mix VBG pCO2 Pt Tmp 54.8 H O2 Delivery Device Cannula Cardiology Labs/Tests 09/10/24 03:19: WBC 10.8, RBC 4.61, Hgb 14.3, Hct 44.1, MCV 95.7 H, MCH 31.0, MCHC 32.4, Plt Count 224, MPV 9.2, Immature Gran % (Auto) 0.300, Neut % (Auto) 94.5 H, Lymph % (Auto) 2.2 L, [place] % (Auto) 2.8, Eos % (Auto) 0.0, Baso % (Auto)0.2, Absolute Neuts (auto) 10.2 H, Nucleated RBC % 0, PT 18.7 H, INR 1.5, D-Dimer Quant (PE/DVT) 0.39, Sodium 139, Potassium 3.9, Chloride 98, Carbon Dioxide 25.7, Anion Gap 16 H, BUN 21 H, Creatinine 0.75, Est GFR (MDRD) Non-Af 89, BUN/Creatinine Ratio 27.5 H, Glucose 174 H, Hemoglobin A1c 5.5, Calcium 8.9,Phosphorus 2.7, Magnesium 2.1, Total Bilirubin 0.73, Triglycerides 42, Cholesterol 85, VLDL Cholesterol 8, HDL Cholesterol 37 L, Cholesterol/HDL Ratio 2.30 09/10/24 03:35: VBG pH 7.41, VBG pO2 68 H, VBG HCO3 35 H, VBG O2 Sat (Calc) 93 H, VBG Base Excess 10 H 09/10/24 03:41: Urine Color Yellow, Urine Clarity Clear, Urine pH 6.0, Ur Specific [place] 1.010, Urine Protein Negative, Urine Glucose (UA) Normal, UrineKetones Negative, Urine Occult Blood 10 H, Urine Nitrite Negative, Urine Bilirubin Negative, Urine Urobilinogen Normal, Ur Leukocyte Esterase Negative, Urine RBC 0-5 SEEN, Urine WBC 0 SEEN Rhythm: EKG: ECHO: Stress Test: Cardiac Cath: PCI: CT Surgery: Holter monitor: EPS: PPM: CXR: Chest CT Scan: Radiography Diagnostic Testing: Radiology Impression Chest CT 09/10/24 01:46 IMPRESSION: Bilateral airspace disease, correlate for aspiration pneumonia. Reading Location: [place] [address] 09/10/24 0803 <Electronically signed by Dallas Muller MD> Cosigner Signature (if applicable): CC: Dr. Shayne Zaidi MD~ Signed [facility] Work Phone: 1(176) 759-538208-04-2025 NoteHNO ID: [id number] Author: SERA KLINE RN Service: ? Author Type: Registered Nurse Type: Progress Notes Filed: 09/10/2024 10:00 Note Text: Summary: ED Utilization review per request of eula Saab ED Follow-Up Note Provider Action / FYI: Chest pain, pneumonia, CHF Call completed by: RN Patient seen in ED: In Network ED Contact made with Patient: Karen Pt was transferred to [facility] for admission 09/09/24. Sera Kline RN September 10, 2024 9:53 [facility]08-04-2025 History of Present illness Narrative* Sera Kline RN - 09/10/2024 9:51 AM EDTSummary: ED Utilization review per request of payor - [employer] ED Follow-Up Note Provider Action / FYI: Chest pain, pneumonia, CHF Call completed by: RN Patient seen in ED: In [facility] ED Contact made with Patient: Karen Pt was transferred to [facility] for admission 09/09/24. Sera Kline RN September 10, 2024 9:53 [facility] History and physical note Author Kristopher Diamond [facility] Note Date/Time September 10, 2024 6:2 5am [facility] Medical Records Department [address] [place] [id number] H&P Exam - Hospitalist 09/10/24 0118 MR#: [id number] Acct: [id number] Name: ARTURO PEDERSEN Rep #:[id number] : 1940 83 From: Kristopher Yusuf DO PCP: Dr. Shayne Zaidi MD Status:ADM IN Location: [place] [id number] HPI - General General Date of Admission: 09/10/24 Date of Service: 09/10/24 Chief Complaint: Shortness of Breath, Cough, Chest Pain, Anxiety and GeneralizedWeakness. HPI Narrative ARTURO PEDERSEN, is a 83 M with a past medical history of essential hypertension; on amlodipine, atenolol and spironolactone, hyperlipidemia; on atorvastatin, hypothyroidism; on levothyroxine, overweight; with BMI of 29.3 this admission, central sleep apnea; on CPAP, CAD; s/p non-ST elevation AL with subsequent CABG x 2 (1992) and stents x 2 placed here (2021) on baby aspirin and clopidogrel, paroxysmal atrial fibrillation; on warfarin, history of CVA; with Right hemiparesis, history of Left vocal cord paralysis with chronic hoarseness, history of dysphagia, former tobacco abuse x ~50 pack years (quit 1992); with subsequent COPD, chronic Right hemidiaphragm elevation, idiopathic peripheral neuropathy; causing numbness and pain in both feet on gabapentin nightly, history of prostate cancer; s/p radiation treatment, depression with anxiety andpanic attacks; on escitalopram, history of GERD; currently not on treatment and OA; with history of Right ankle fracture and Right THR with chronic pain; on as needed tramadol every 4 hours as needed who was transferred from [place] ER with complaints of shortness of breath, chest pain, cough, anxiety and generalized weakness. Mr. Pedersen reports his symptoms began approximately ~2-3 days prior to admission with a gradual-onset of dyspnea on exertion that progressed to shortness of breath at rest with a URI symptoms. He also admits to congested cough productive of brownish sputum with intermittent severe difficulty breathing triggering chest pain and panic attacks. He states his chest pain is exacerbated by cough and deep breathing and is not exacerbated by palpation. Hestates his pain is not improved with rest or anything. He states his symptoms are similar to his previous bouts of pneumonia with COPD exacerbation. He admits to associated fatigue, congested cough, chest pain, intermittent lightheadedness and mild lower extremity edema. He denies related fever, chills, visual changes, runny nose, sore throat, palpitations, heart racing, abdominal pain, nausea, vomiting, diarrhea, constipation, neck pain, back pain, dysuria, hematuria, headache, confusion or rash. At [place] ER he was noted to have a CXR that revealed Right hemidiaphragm elevation with Left perihilar opacity with patient subsequently diagnosed with Pneumonia in addition to elevated pro-BNP of 2.4K consistent with AE CHF; of uncertain subtype complicated by clinical evidence of AE COPD causing patient to be treated with IV ceftriaxone, IV azithromycin, IV Solu-Medrol, DuoNebs, IV furosemide and orallorazepam with an incidentally noted subtherapeutic INR of 1.4 and EKG revealingAtrial Fibrillation with heart rate of ~106 bpm and WBC of 10.2 K compounded by complaints of chest pain that are suspected to be at least partially pleuritic in nature in the setting of known CAD with all resulting in complaints of Generalized Weakness. He was then admitted to the PCU for ongoing care for staythat is expected to extend beyond 2 midnights. 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) Central sleep apnea Stage 2 moderate COPD by GOLD classification HTN (hypertension) Hoarseness left vocal cord paralysis Home Medications ?Medication ?Instructions ?Recorded ?Last Taken ?Type levothyroxine 50 mcg tablet 50 mcg PO DAILY thyroid 12/14/21 History atorvastatin 40 mg tablet 40 mg PO QHS cholesterol 12/14/21 History spironolactone 25 mg tablet 25 mg PO DAILY diuretic 12/14/21 History aspirin 81 mg chewable tablet 81 mg PO DAILY@0800 heal th 12/14/21 12/14/21 History atenolol 50 mg tablet 25 mg PO DAILY bp 12/14/21 1 02/13/21 History potassium chloride 10 mEq 20 meq PO DAILY supplement 1 02/13/21 12/14/21 History tablet,extended release albuterol sulfate 90 mcg/actuation 2 puff inhalation Q 4H PRN PRN 03/15/23 Unknown Rx aerosol inhaler (Ventolin HFA) Wheezing ##1 fluticasone 250 mcg-salmeterol 50 1 inh inhalation Q12 H 09/10/24 Unknown History mcg/dose blistr powdr for inhalation furosemide 20 mg tablet 20 mg PO DAILY 09/10/24 Unkn own History gabapentin 300 mg capsule 300 mg PO BID 09/10/24 Unkno wn History nitroglycerin 0.3 mg sublingual 0.3 mg sublingual Q5M PRN chest 09/10/24 Unknown History tablet pain paroxetine HCl 40 mg tablet 40 mg PO DAILY 09/10/24 Un known History warfarin 2.5 mg tablet 2.5 mg PO DAILY 09/10/24 Unk nown History Allergy/AdvReac Type Severity Reaction Status Date / [...] use type: does not use ROS ROS Narrative Review of Systems: Constitutional: Patient denies fever or chills. Eyes: Patient denies changes in vision or discharge from eyes. ENT: Patient denies runny nose, sore throat or ear pain. Resp: Patient admits to dyspnea on exertion the progressive shortness of breath at rest with cough productive of brownish sputum and occasional wheezing. CV: Patient admits to chest pain that is made worse with deep breathing and cough in addition to lower extremity edema. He denies associated palpitations or heart racing. GI: Patient denies abdominal pain, nausea, vomiting, diarrhea or constipation. : Patient denies dysuria, hematuria urinary frequency. MSK: Patient admits to generalized weakness as per HPI. Skin: Patient was noted to have tinea cruris. Psych: Patient admits to depression with anxiety and panic attacks but he deniesSI or HI. Neuro: Patient admits to lightheadedness but he denies headache, paresthesias ornew focal neurologic deficits. Allergy: Patient denies lip swelling, tongue swelling or urticaria. Hematology: Patient admits to easy bleeding and easy bruisability on warfarin. Endocrinology: Patient denies polyuria, polydipsia, polyphagia or heat/cold intolerance. 14 point ROS otherwise negative except for positives noted above in HPI. Vital Signs Vital Signs Vital Signs: Weight Weight: 209 lb 14.081 oz Body Mass Index (BMI) 29.2 Physical Exam Const alert, oriented x3 and no apparent distress Constitutional Narrative: Patient is chronically ill-appearing with significant central adiposity but nontoxic in appearance. He is able to speak in near full sentences General Appearance: cooperative HEENT normocephalic, head/scalp atraumatic, hearing grossly normal bilaterally and moist oral mucous membranes Eyes PERRL, EOMs intact bilaterally and conjunctivae normal Neck no lymphadenopathy and supple Resp Resp Narrative: Diminished breath sounds throughout with coarse rhonchi and rales at bases. Auscultation: rales and rhonchi Cardio Cardio Narrative: Irregularly irregular at ~106 bpm. GI normal to inspection, nondistended, normoactive bowel sounds, soft to palpation,non-tender and non-distended Extremity full ROM Extremity Narrative: Patient has ~2+ bilateral lower extremity symmetrical pitting edema. Skin Skin Narrative: Patient has evidence of tinea cruris. Neuro oriented x3, CN's II-XII intact bilaterally, moves all extremities and no focal motor deficits Sensorium / Orientation: awake, alert, oriented to person, oriented to place andoriented to time Speech: speech normal Psych affect normal Results Medical Records Data Attestation: I reviewed the patient's medical records Lab / Micro Data Attestation: I reviewed the patient's lab results. 09/10/24 03:19 09/10/24 03:19 Labs: RUN DATE: 09/10/24 [facility], DEPARTMENT OF LABORATORIES PAGE 1 RUN TIME: 622 Specimen Inquiry [address], [place], [address] PATIENT: ARTURO PEDERSEN LOC: [facility] U #: [id number] : 1940 AGE/SX: 83/M FACILITY: [facility] ROOM: [facility] RE09/10/[address]: Heidy Wilkerson STATUS:ADM IN ED: 1 DIS: ~ SPEC #: [id number] ANASTACIO: 09/10/24 STATUS: COMP REQ #: [id number] RECD: 09/10/24-[address]: Dr. Kristopher Valencia, DO ENTERED: 09/10/24-[address]: Dr. Shayne Zaidi MD ~ Test Result Flag Reference Range COMP METABOLIC LIPID GLU 174 H 70-99 mg/dL BUN 21 H 4-19 mg/dL CREAT,SERUM 0.75 0.70-1.20 mg/dL eGFR 89 >60 mL/min/1.73m2 CKD-EPI Creatinine Equation (2020) ECRCL 80.95 50-250 ml/min BUN/CRE 27.5 H 10-20 RATIO T PROT 7.6 5.9-8.4 g/dL ALB 3.7 3.4-4.8 g/dL GLOB 3.9 2.2-4.2 g/dL A/G 0.9 0.9-2.4 RATIO Calcium 8.9 7.6-11.0 mg/dL PHOS 2.7 2.7-4.5 mg/dL Trop T High Sen 8 <=22 ng/L AST 41 H <=37 U/L ALK PHOS 199 H 40-129 U/L ALT 34 <=46 U/L T BILI 0.73 0.00-1.30 mg/dL CHOL 85 <=200 mg/dL Cholesterol level, Desirable <200 mg/dL Borderline high cholesterol 200-239 mg/dL High cholesterol >=240 mg/dL Recommendations of the NCEP Adult Treatment Panel for the following risk-cutoff thresholds for the [place] population. TRIG 42 mg/dL The drugs N-Acetylcysteine and Metamizole may falsely depress this assay. Normal range: <150 mg/dL Borderline High: 150-199 mg/dL High: 200-499 mg/dL Very High: >500 mg/dL MG 2.1 1.5-2.2 mg/dL NA 139 133-145 mmol/L Potassium 3.9 3.3-5.1 mmol/L CL 98 98-108 mmol/L CO2 25.7 21.0-32.0 mmol/L GAP 16 H 5-15 HDL 37 L mg/dL National Cholesterol Education Program (NCEP) guidelines: <40 mg/dL: Low HDL-cholesterol (major risk factor for CHD) >= 60 mg/dL: High HDL-cholesterol (negative risk factorfor CHD) HDL-cholesterol is affected by a number of factors, e.g. smoking, exercise, hormones, sex and age. CHOL:HDL 2.30 CLDL 40 mg/dL Bzhutzmdff=660-919 mg/dL & Higher Kefp=018 mg/dL or greater Friedwald Equation for LDL-C VLDL 8 5-40 mg/dL TSH 0.518 0.300-4.200 uIU/mL Vitamin B12 515 180-914 pg/mL proBNP 3825 H <=1800 pg/mL Heart Failure Unlikely: < 300 pg/mL Heart Failure Likely < 50 Years: > 450 pg/mL 50-75 Years: > 900 pg/mL >75 Years: > 1800 pg/mL ABG Data ABG results: RUN DATE: 09/10/24 [facility], DEPARTMENT OF LABORATORIES PAGE 1 RUN TIME: 0438 Specimen Inquiry [address], [place], [place], [id number] PATIENT: ARTURO PEDERSEN LOC: [facility] U #: [id number] : 1940 AGE/SX: 83/M FACILITY: [facility] ROOM: [facility] RE09/10/[address]: Heidy Wilkerson STATUS:ADM IN ED: 1 DIS: ~ SPEC #: [id number] ANASTACIO: 09/10/24 STATUS: COMP REQ #: [id number] RECD: 09/10/[address]: Dr. Kristopher Valencia DO ENTERED: 09/10/[address]: Dr. Shayne Zaidi MD ~ Test Result Flag Reference Range VIBG Blood Gas Type ARIEL SITE Not entered O2 Delivery Dev Cannula FI02 3.0 VBG pH 7.41 7.32-7.42 VBG pCO2 54.8 H 41-51 mmHg VBG PO2 68 H 25-40 mmHg VBG HCO3 35 H 22-26 mmol/L VBG BE 10 H -1.0-3.5 mmol/L VBG SO2 93 H 50-70 % VBG TCO2 37 H 23-33 mmol/L END OF REPORT Imaging [facility] Imaging Services [address] [place] [address] Chest without Contrast MR#: [id number] Acct: [id number] Name: ARTURO PEDERSEN Rep #: [id number] : 1940 M 83 From: Jad Wheeler MD PCP: Dr. Shayne Zaidi MD Status: ADM IN Study: Chest without Contrast Date of Exam: 09/10/24 Exam# [id number] Ordering Dr: Kristopher Valencia DO PROCEDURE: CHEST WITHOUT CONTRAST 09/10/2024 REASON FOR EXAM: SUSPECTED PNA ON CXR. TECHNIQUE: Chest CT without contrast. Coronal and Sagittal reconstruction series were provided. One or more dose reduction techniques were used (e.g., Automated exposure control, adjustment of the mA and/or kV according to patient size, use of iterative reconstruction technique RADIATION DOSE SUMMARY: CTDlvol: 20 mGy DLP: 691 mGycm COMPARISON: CT 02/07/2024, FINDINGS: Unremarkable base of neck and axilla. Thoracic spine scoliosis and degeneration. Normal esophagus. Normal heart size. Status post CABG. Mediastinum is shifted to the left and the right hemidiaphragm is markedly elevated. Gynecomastia. No acute chest wall findings. Cholelithiasis. No acute upper abdominal findings. There is bilateral lower lobe bronchial wall thickening and debris. On the left, there is upper lobe airspace disease favoring atelectasis. There is posterior lower lobe airspace disease, likely a mix of atelectasis and consolidation. On the right, there is posterior upper lobe airspace disease favoring atelectasis. There is lower lobe airspace disease likely a mix of atelectasis and consolidation. No effusion or pneumothorax. CT/Chest without Contrast IMPRESSION: Bilateral airspace disease, correlate for aspiration pneumonia. Reading Location: [place] [address] CC: Dr. Kristopher Valencia DO; Dr. 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 Assessment & Plan Assessment/Plan (1) Aspiration pneumonia: QUALIFIERS: Aspiration pneumonia type: unspecified Laterality: unspecified laterality Lung location: unspecified part of lung Qualified Code(s): J69.0 - Pneumonitis due to inhalation of food and vomit (2) COPD with acute exacerbation: (3) Acute exacerbation of chronic heart failure: (4) Chest pain: QUALIFIERS: Chest pain type: unspecified Qualified Code(s): R07.9- Chest pain, unspecified (5) Respiratory insufficiency: (6) Generalized weakness: (7) Paroxysmal atrial fibrillation with RVR: (8) Anxiety disorder with panic attacks: (9) Subtherapeutic anticoagulation: (10) Overweight (BMI 25.0-29.9): (11) Central sleep apnea associated with atrial fibrillation: (12) Tinea cruris: PLAN: Plan 1. CXR that revealed Right hemidiaphragm elevation with Left perihilar opacity with patient subsequently diagnosed with Pneumonia; potentially due to aspiration - Admit to PCU. Continue empiric IV ceftriaxone and replace azithromycin with IV metronidazole to cover anaerobes due to potential adverse drug interaction with warfarin. Check urinary antigens Streptococcus pneumonia and Legionella. Check viral respiratory panel. Check CT scan of chest without contrast to confirm suspicion of pneumonia on CXR. Give scheduled guaifenesin twice daily. Give acetaminophen as needed for nxyb-cl-eohofbsh (level 1-5/10) pain or fever. Continue tramadol as needed for severe (level 6-10/10) pain. 2. Elevated pro-BNP of 2.4K consistent with AE CHF; of uncertain subtype and Chest Pain in the setting of previously known CAD; s/p CABG x 2 (1992) and stents x 2 (2021) complicating #1 - Continue IV furosemide BID. Check echocardiogram to evaluate LVEF. Maintain on BASA, clopidogrel and prn SL NTG as previous. Serialize troponin. Finally, we will consult [facility] to see this patient on rounds in the a.m. for further recommendations without appreciated events. 3. AE COPD with Acute Respiratory Insufficiency compounding #1 & #2 - Continue IV methylprednisolone plus scheduled and prn nebulizers. Check VBG to establishbaseline this admission. 4. Generalized Weakness due to #1 - #3 - PT/OT and Case Management to consult and treat on rounds in the AM for further recommendations with help appreciated in advance. 5. Depression with Anxiety and Panic Attacks exacerbated by #1 - #4 - Maintain home medications plus give low-dose alprazolam prn BID for breakthrough symptoms. 6. Paroxysmal atrial fibrillation; on chronic warfarin with subtherapeutic INR of 1.5 present on admission - Resume warfarin and give one full-dose of enoxaparin in an effort to bridge until INR is therapeutic. Recheck INR to follow trend. 7. Overweight; with BMI of 29.3 present on admission with Central Sleep Apnea adding to the burden of disease outlined from #1 - #6 - Weight loss will be recommended. Check TSH. Continue nocturnal CPAP. 8. Tinea Cruris - Patient started on nystatin powder. 9. Essential hypertension; on amlodipine, atenolol and spironolactone - Maintain home regimen plus give prn hydralazine IV for systolic blood pressure >160 mmHg. 10. Hyperlipidemia; on atorvastatin - Restart statin and check Lipid Profile. 11. Hypothyroidism; on levothyroxine - Resume levothyroxine as before and checkTSH. 12. History of CVA; with Right hemiparesis - Stable. 13. History of Left vocal cord paralysis with chronic hoarseness - Stable. 14. History of dysphagia - We will consult speech therapy to evaluate with helpappreciated in advance. 15. Chronic Right hemidiaphragm elevation - Noted. 16. Idiopathic peripheral neuropathy; causing numbness and pain in both feet ongabapentin nightly - Continue gabapentin and check B12 and Folate levels to evaluate potentially reversible forms of neuropathy. 17. History of prostate cancer; s/p radiation treatment - Noted. 18. History of GERD; currently not on treatment - Start PPI in light of steroids used to treat #3. 19. OA; with history of Right ankle fracture and Right THR with chronic pain; on as needed tramadol every 4 hours - We will follow pain regimen and scales outlined in #1. 20. DVT/GI prophylaxis - Give enoxaparin 90 mg sq once and continue warfarin. Check PT/INR daily to follow trend and stop bridging with LMWH when INR 2 or greater. Pantoprazole 40 mg PO daily. Total time: Approximately (but not less than) 75 minutes. Charges/Coding Visit Charges Inpatient E&M: 87784 Init Hosp L3 09/10/24 0625 <Electronically signed by Kristopher Valencia DO> Cosigner Signature (if applicable): CC: Dr. Kristopher Valencia DO; Dr. Shayne Zaidi MD~ Signed [facility] Work Phone: [phone] 184-383808-04-2025 Consult note [facility] Medical Records Department [address] [place] [address] Consultation - Cardiology 09/10/24 0751 MR#: [id number] Acct: [id number] Name: ARTURO PEDERSEN Rep #:[id number] : 1940 83 From: Dallas Muller MD PCP: Dr. Shayne Zaidi MD Status:ADM IN Location: [place] [address]- 1 Assessment & Plan Assessment/Plan (1) Paroxysmal atrial fibrillation with RVR: PLAN: Patient presents with paroxysmal atrial fibrillation with a rapid ventricular response rate. It appears that he has a pulmonary condition at thistime. My recommendation will be to continue the current management and increasethe beta-karis to 50 mg a day and restart his anticoagulation. * It is not clear to me whether he is on warfarin for financial reasons or preference. (2) History of coronary artery stent placement: PLAN: He does have a history of coronary disease status post angioplasty and stenting in 2021 of the distal left main and then of the circumflex artery. Thesaphenous vein graft to the obtuse marginalbranch and the ECHEVARRIA to the LAD were noted to be patent there was an occluded right coronary artery with oykw-jw-pcwal collaterals. * In light of his negative troponins and his nonacute EKG changes we will continue to maximally medically manage the above. (3) HTN (hypertension): PLAN: His blood pressure is under good control at this time and I would not recommend we make any other changes. Thank you for allowing me to participate in the care of your patient. Please don't hesitate to callif any issues arise. (4) Acute exacerbation of chronic heart failure: PLAN: He does have evidence of congestive heart failure and he will continue on the spironolactone,intravenous Lasix for now, and the beta-karis. * An echocardiogram is being performed to assess his ventricular function. (5) Hyperlipidemia: PLAN: He does have a history of hyperlipidemia. In face of his coronary diseasewe will continue with high intensity statin. HPI Consult Data Date of Consult: 09/10/24 HPI Narrative HPI Narrative: ARTURO PEDERSEN, is a 83 M who we are asked to see due to atrial fibrillation with a rapid ventricularresponse rate. He does have a history of hypertension, hyperlipidemia, coronary artery disease status post coronary bypass surgery in 1992 with a ECHEVARRIA to the LAD and a saphenous vein graft to the circumflex artery. He was here in 2021 and had angioplasty and stenting to the circumflex artery. He also at that time was noted to have paroxysmal atrial fibrillation. He however has not had any office follow-up since then. He apparently has had a history of cerebrovascular accident with right hemiparesis chronic HOARSENESS and elevated right hemidiaphragm. Approximately 2 to 3 days prior to admission he had an onset of dyspnea on exertion and a congestive cough with brownish sputum and intermittent difficultybreathing. He denied any pain per se. [place] chest x-ray that I reviewed and right hemidiaphragm elev ation which was chronic but read as pneumonia he had an elevated proBNP of 2400. He was treated with antibiotics steroids Lasix and an EKG demonstrated atrial fibrillation with a rate of 106 bpm and with his intermittent pleuritic chest discomfort he was admitted here and cardiology was called for further evaluationand management. This morning he appears to be fairly stable his heart rate is in the 90s and he is pleasantly confused but no other problems. 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) Central sleep apnea Stage 2 moderate COPD by GOLD classification HTN (hypertension) Hoarseness left vocal cord paralysis Home Medications ?Medication ?Instructions ?Recorded ?Last Taken ?Type levothyroxine 50 mcg tablet 50 mcg PO DAILY thyroid 12/14/21 History atorvastatin 40 mg tablet 40 mg PO QHS cholesterol 12/14/21 History spironolactone 25 mg tablet 25 mg PO DAILY diuretic 12/14/21 History aspirin 81 mg chewable tablet 81 mg PO DAILY@0800 heal th 12/14/21 12/14/21 History atenolol 50 mg tablet 25 mg PO DAILY bp 12/14/21 1 02/13/21 History potassium chloride 10 mEq 20 meq PO DAILY supplement 1 02/13/21 12/14/21 History tablet,extended release albuterol sulfate 90 mcg/actuation 2 puff inhalation Q 4H PRN PRN 03/15/23 Unknown Rx aerosol inhaler (Ventolin HFA) Wheezing ##1 fluticasone 250 mcg-salmeterol 50 1 inh inhalation Q12 H 09/10/24 Unknown History mcg/dose blistr powdr for inhalation furosemide 20 mg tablet 20 mg PO DAILY 09/10/24 Unkn own History gabapentin 300 mg capsule 300 mg PO BID 09/10/24 Unkno wn History nitroglycerin 0.3 mg sublingual 0.3 mg sublingual Q5M PRN chest 09/10/24 Unknown History tablet pain paroxetine HCl 40 mg tablet 40 mg PO DAILY 09/10/24 Un known History warfarin 2.5 mg tablet 2.5 mg PO DAILY 09/10/24 Unk nown History Allergy/AdvReac Type Severity Reaction Status Date / Time oxycodone (From Percodan) Allergy Other Verified 12/31/24 14:36 Surgical History History of coronary artery stent placement (12/16/21) Cataract extraction status History of hip replacement History of open heart surgery Social History Smoking Status: Former smoker quit date: 02/08/92 pack-years: 37 Tobacco: How many years used: 20 alcohol intake: never substance use type: does not use ROS Constitutional Constitutional: Denies fever(s) or weight loss Eyes Eyes: Reports systems reviewed and no addt'l complaints, except as documented ENT HEENT: Reports systems reviewed and no addt'l complaints, except as documented Cardiovascular Cardiovascular: Reports dyspnea at rest, dyspnea on exertion and palpitations; Denies chest pain atrest, chest pain with activity, edema or paroxysmal nocturnal dyspnea Respiratory/Chest Respiratory/Chest: Reports shortness of breath at rest and shortness of breath with exertion; Denies dyspnea on exertion or productive cough Gastrointestinal Gastrointestinal: Denies change in bowel habits, nausea, vomiting or weight changes Genitourinary Genitourinary: Denies difficulty urinating Musculoskeletal Musculoskeletal: Denies joint stiffness or muscle weakness Integumentary Integumentary: Denies lesions Neurologic Neurologic: Denies dizziness or syncope Psychiatric Psychiatric: Denies anxiety Endocrine Endocrinology: Denies excessive sweating or fatigue Hematologic/Lymphatic Hematologic/Lymphatic: Denies anemia Allergic/Immunologic Allergic/Immunologic: Denies seasonal rhinorrhea Physical Exam Const alert, oriented x3 and no apparent distress General Appearance: cooperative HEENT hearing grossly normal bilaterally Head and Scalp: atraumatic Eyes EOMs intact bilaterally Neck General: normal visual inspection Chest inspection of chest normal and palpation of chest normal Resp normal respiratory effort Auscultation: clear to auscultation bilaterally Cardio S1 normal heart sound and S2 normal heart sound Jugular Venous Distention: JVD Rhythm: abnormal rhythm irregularly irregular GI normal to inspection, nondistended, normoactive bowel sounds Extremity normal capillary refill and no pedal edema Peripheral Pulses: Yes pulses 2+ throughout and femoral pulses present Skin no rashes or lesions noted Neuro oriented x3 and CN's II-XII intact bilaterally Psych Appearance: grossly normal and appropriate Risk Stratification Risk Stratification Applicable: No Objective Data Vital Signs: Vital Signs Temp Pulse Resp BP Pulse Ox O2 Del Method O2 Flow Rate 98 F 62 20 H 135/80 H 96 Nasal Cannula 2 09/10/24 02:00 09/10/24 02:00 09/10/24 05:46 09/10/24 02:00 09/10/24 05:46 09/10/24 05:46 09/10/24 05:46 Oxygen Flow Rate (L/min) 2 Oxygen Delivery Method Nasal Cannula Weight: 209 lb 14.081 oz Body Mass Index (BMI) 29.2 Intake & Output: Intake and Output for Last 24 Hours 09/08/24 09/09/24 09/10/24 23:59 23:59 23:59 Intake Total 400 / 400 Output Total 400 / 400 Balance 0 / 0 Lab / Micro Data 09/10/24 03:19 09/10/24 03:19 Labs: Laboratory Results - last 24 hr 09/10/24 03:19: WBC 10.8, RBC 4.61, Hgb 14.3, Hct 44.1, MCV 95.7 H, MCH 31.0, MCHC 32.4, RDW Std Deviation 47.6 H, RDW Coeff of Erica 13.2, Plt Count 224, MPV 9.2, Immature Gran % (Auto) 0.300, Neut % (Auto) 94.5 H, Lymph % (Auto) 2.2 L, [place] % (Auto) 2.8, Eos % (Auto) 0.0, Baso % (Auto) 0.2, Absolute Neuts (auto) 10.2 H, Absolute Lymphs (auto) 0.24 L, Nucleated RBC % 0, PT 18.7 H, INR 1.5, D-DimerQuant (PE/DVT) 0.39, Sodium 139, Potassium 3.9, Chloride 98, Carbon Dioxide 25.7, Anion Gap 16 H, BUN 21 H, Creatinine 0.75, Estim Creat Clear Calc 80.95, Est GFR (MDRD) Non-Af 89, BUN/Creatinine Ratio 27.5 H, Glucose 174 H, Hemoglobin A1c 5.5, Calcium 8.9, Phosphorus 2.7, Magnesium 2.1, Total Bilirubin 0.73, AST 41 H, ALT 34, Alkaline Phosphatase 199 H, Troponin T High Sens 8, NT pro BNP II 3825H, Total Protein 7.6, Albumin 3.7, Globulin 3.9, Albumin/Globulin Ratio 0.9, Triglycerides 42, Cholesterol 85, LDL Cholesterol, Calc 40, VLDL Cholesterol 8, HDL Cholesterol 37 L, Cholesterol/HDL Ratio 2.30, Vitamin B12 515, Serum Folate 7.94, TSH 0.518 09/10/24 03:41: Urine Color Yellow, Urine Clarity Clear, Urine pH 6.0, Ur Specific [place] 1.010, Urine Protein Negative, Urine Glucose (UA) Normal, UrineKetones Negative, Urine Occult Blood 10 H, Urine Nitrite Negative, Urine Bilirubin Negative, Urine Urobilinogen Normal, Ur Leukocyte Esterase Negative, Urine RBC 0-5 SEEN, Urine WBC 0 SEEN, Ur Squamous Epith Cells 0-5 SEEN, Urine Bacteria 1+, Urine Mucus 0 SEEN 09/10/24 04:55: Troponin T Hi Sens 2 Hr 7 Micro: Microbiology 09/10/24 03:41 Urine, Random Legionella Antigen - Final 09/10/24 03:41 Urine, Random Streptococcus pneumoniae Antigen (M - Final ABG Data ABG results: ABG 09/10/24 03:35 Specimen Type ARIEL Sample Site Not entered O2 % 3.0 VBG pH 7.41 VBG pO2 68 H VBG HCO3 35 H VBG Total CO2 37 H VBG O2 Sat (Calc) 93 H VBG Base Excess 10 H POC Mix VBG pCO2 Pt Tmp 54.8 H O2 Delivery Device Cannula Cardiology Labs/Tests 09/10/24 03:19: WBC 10.8, RBC 4.61, Hgb 14.3, Hct 44.1, MCV 95.7 H, MCH 31.0, MCHC 32.4, Plt Count 224, MPV 9.2, Immature Gran % (Auto) 0.300, Neut % (Auto) 94.5 H, Lymph % (Auto) 2.2 L, [place] % (Auto) 2.8, Eos % (Auto) 0.0, Baso % (Auto)0.2, Absolute Neuts (auto) 10.2 H, Nucleated RBC % 0, PT 18.7 H, INR 1.5, D-Dimer Quant (PE/DVT) 0.39, Sodium 139, Potassium 3.9, Chloride 98, Carbon Dioxide 25.7, Anion Gap 16 H, BUN 21 H, Creatinine 0.75, Est GFR (MDRD) Non-Af 89, BUN/Creatinine Ratio 27.5 H, Glucose 174 H, Hemoglobin A1c 5.5, Calcium 8.9,Phosphorus 2.7, Magnesium 2.1, Total Bilirubin 0.73, Triglycerides 42, Cholesterol 85, VLDL Cholesterol 8, HDL Cholesterol 37 L, Cholesterol/HDL Ratio 2.30 09/10/24 03:35: VBG pH 7.41, VBG pO2 68 H, VBG HCO3 35 H, VBG O2 Sat (Calc) 93 H, VBG Base Excess 10 H 09/10/24 03:41: Urine Color Yellow, Urine Clarity Clear, Urine pH 6.0, Ur Specific [place] 1.010, Urine Protein Negative, Urine Glucose (UA) Normal, UrineKetones Negative, Urine Occult Blood 10 H, Urine Nitrite Negative, Urine Bilirubin Negative, Urine Urobilinogen Normal, Ur Leukocyte Esterase Negative, Urine RBC 0-5 SEEN, Urine WBC 0 SEEN Rhythm: EKG: ECHO: Stress Test: Cardiac Cath: PCI: CT Surgery: Holter monitor: EPS: PPM: CXR: Chest CT Scan: Radiography Diagnostic Testing: Radiology Impression Chest CT 09/10/24 01:46 IMPRESSION: Bilateral airspace disease, correlate for aspiration pneumonia. Reading Location: [place] [address] 09/10/24 0803 Cosign Signature (if applicable): CC: Dr. Shayne Zaidi MD~ Signed [facility]08-04-2025 History and physical note [facility] Medical Records Department [address] [place] [id number] H&P Exam - Hospitalist 09/10/24 0118 MR#: [id number] Acct: [id number] Name: ARTURO PEDERSEN Rep #:[id number] : 1940 83 From: Kristopher Yusuf DO PCP: Dr. Shayne Zaidi MD Status:ADM IN [facility] - General General Date of Admission: 09/10/24 Date of Service: 09/10/24 Chief Complaint: Shortness of Breath, Cough, Chest Pain, Anxiety and GeneralizedWeakness. HPI Narrative ARTURO PEDERSEN, is a 83 M with a past medical history of essential hypertension; on amlodipine, atenolol and spironolactone, hyperlipidemia; on atorvastatin, hypothyroidism; on levothyroxine, overweight; with BMI of 29.3 this admission, central sleep apnea; on CPAP, CAD; s/p non-ST elevation AL with subsequent CABG x 2 (1992) and stents x 2 placed here (2021) on baby aspirin and clopidogrel, paroxysmal atrial fibrillation; on warfarin, history of CVA; with Right hemiparesis, history of Left vocalcord paralysis with chronic hoarseness, history of dysphagia, former tobacco abuse x ~50 pack years(quit 1992); with subsequent COPD, chronic Right hemidiaphragm elevation, idiopathic peripheral neuropathy; causing numbness and pain in both feet on gabapentin nightly, history of prostate cancer; s/p radiation treatment, depression with anxiety andpanic attacks; on escitalopram, history of GERD; currently not on treatment and OA; with history of Right ankle fracture and Right THR with chronic pain; on as needed tramadol every 4 hours as needed who was transferred from [place] ER with complaints of shortness of breath, chest pain, cough, anxiety and generalized weakness. Mr. Pedersen reports his symptoms began approximately ~2-3 days prior to admission with a gradual-onset of dyspnea on exertion that progressed to shortness of breath at rest with a URI symptoms. He also admits to congested cough productive of brownish sputum with intermittent severe difficulty breath ing triggering chest pain and panic attacks. He states his chest pain is exacerbated by cough and deep breathing and is not exacerbated by palpation. Hestates his pain is not improved with rest or anything. He states his symptoms are similar to his previous bouts of pneumonia with COPD exacerbation. He admits to associated fatigue, congested cough, chest pain, intermittent lightheadedness and mild lower extremity edema. He denies related fever, chills, visual changes, runny nose, sore throat, palpitations, heart racing, abdominal pain, nausea, vomiting, diarrhea, constipation, neck pain, backpain, dysuria, hematuria, headache, confusion or rash. At [place] he was noted to have a CXR that revealed Right hemidiaphragm elevation with Left perihilar opacity with patient subsequently diagnosed with Pneumonia in addition to elevated pro-BNP of 2.4K consistent with AE CHF; of uncertain subtype complicated by clinical evidence of AE COPD causing patient to be treated with IV ceftriaxone, IV azithromycin, IV Solu-Medrol, DuoNebs, IV furosemide and orallorazepam with an incidentally noted subtherapeutic INR of 1.4 and EKG revealingAtrial Fibrillation with heart rate of ~106 bpm and WBC of 10.2 K compounded by complaints of chest pain that are suspected to be at least partially pleuritic in nature in the setting of known CAD with all resulting in complaints of Generalized Weakness. He was then admitted to the PCU for ongoing care for staythat is expected to extend beyond 2 midnights. 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) Central sleep apnea Stage 2 moderate COPD by GOLD classification HTN (hypertension) Hoarseness left vocal cord paralysis Home Medications ?Medication ?Instructions ?Recorded ?Last Taken ?Type levothyroxine 50 mcg tablet 50 mcg PO DAILY thyroid 12/14/21 History atorvastatin 40 mg tablet 40 mg PO QHS cholesterol 12/14/21 History spironolactone 25 mg tablet 25 mg PO DAILY diuretic 12/14/21 History aspirin 81 mg chewable tablet 81 mg PO DAILY@0800 heal th 12/14/21 12/14/21 History atenolol 50 mg tablet 25 mg PO DAILY bp 12/14/21 1 02/13/21 History potassium chloride 10 mEq 20 meq PO DAILY supplement 1 02/13/21 12/14/21 History tablet,extended release albuterol sulfate 90 mcg/actuation 2 puff inhalation Q 4H PRN PRN 03/15/23 Unknown Rx aerosol inhaler (Ventolin HFA) Wheezing ##1 fluticasone 250 mcg-salmeterol 50 1 inh inhalation Q12 H 09/10/24 Unknown History mcg/dose blistr powdr for inhalation furosemide 20 mg tablet 20 mg PO DAILY 09/10/24 Unkn own History gabapentin 300 mg capsule 300 mg PO BID 09/10/24 Unkno wn History nitroglycerin 0.3 mg sublingual 0.3 mg sublingual Q5M PRN chest 09/10/24 Unknown History tablet pain paroxetine HCl 40 mg tablet 40 mg PO DAILY 09/10/24 Un known History warfarin 2.5 mg tablet 2.5 mg PO DAILY 09/10/24 Unk nown History Allergy/AdvReac Type Severity Reaction Status Date / [...] use type: does not use ROS ROS Narrative Review of Systems: Constitutional: Patient denies fever or chills. Eyes: Patient denies changes in vision or discharge from eyes. ENT: Patient denies runny nose, sore throat or ear pain. Resp: Patient admits to dyspnea on exertion the progressive shortness of breath at rest with cough productive of brownish sputum and occasional wheezing. CV: Patient admits to chest pain that is made worse with deep breathing and cough in addition to lower extremity edema. He denies associated palpitations or heart racing. GI: Patient denies abdominal pain, nausea, vomiting, diarrhea or constipation. : Patient denies dysuria, hematuria urinary frequency. MSK: Patient admits to generalized weakness as per HPI. Skin: Patient was noted to have tinea cruris. Psych: Patient admits to depression with anxiety and panic attacks but he deniesSI or HI. Neuro: Patient admits to lightheadedness but he denies headache, paresthesias ornew focal neurologic deficits. Allergy: Patient denies lip swelling, tongue swelling or urticaria. Hematology: Patient admits to easy bleeding and easy bruisability on warfarin. Endocrinology: Patient denies polyuria, polydipsia, polyphagia or heat/cold intolerance. 14 point ROS otherwise negative except for positives noted above in HPI. Vital Signs Vital Signs Vital Signs: Weight Weight: 209 lb 14.081 oz Body Mass Index (BMI) 29.2 Physical Exam Const alert, oriented x3 and no apparent distress Constitutional Narrative: Patient is chronically ill-appearing with significant central adiposity but nontoxic in appearance.He is able to speak in near full sentences General Appearance: cooperative HEENT normocephalic, head/scalp atraumatic, hearing grossly normal bilaterally and moist oral mucous membranes Eyes PERRL, EOMs intact bilaterally and conjunctivae normal Neck no lymphadenopathy and supple Resp Resp Narrative: Diminished breath sounds throughout with coarse rhonchi and rales at bases. Auscultation: rales and rhonchi Cardio Cardio Narrative: Irregularly irregular at ~106 bpm. GI normal to inspection, nondistended, normoactive bowel sounds, soft to palpation,non-tender and non-distended Extremity full ROM Extremity Narrative: Patient has ~2+ bilateral lower extremity symmetrical pitting edema. Skin Skin Narrative: Patient has evidence of tinea cruris. Neuro oriented x3, CN's II-XII intact bilaterally, moves all extremities and no focal motor deficits Sensorium / Orientation: awake, alert, oriented to person, oriented to place andoriented to time Speech: speech normal Psych affect normal Results Medical Records Data Attestation: I reviewed the patient's medical records Lab / Micro Data Attestation: I reviewed the patient's lab results. 09/10/24 03:19 09/10/24 03:19 Labs: RUN DATE: 09/10/24 [facility], DEPARTMENT OF LABORATORIES PAGE 1 RUN TIME: 622 Specimen Inquiry [address] [place], [address] PATIENT: ARTURO PEDERSEN LOC: [facility] U #: [id number] : 1940 AGE/SX: 83/M FACILITY: [facility] ROOM: [facility] RE09/10/[address]: Heidy Wilkerson STATUS:ADM IN ED: 1 DIS: ~ SPEC #: [id number] ANASTACIO: 09/10/24 STATUS: COMP REQ #: [id number] RECD: 09/10/[address]: Dr. Kristopher Valencia DO ENTERED: 09/10/24-[address]: Dr. Shayne Zaidi MD ~ Test Result Flag Reference Range COMP METABOLIC LIPID GLU 174 H 70-99 mg/dL BUN 21 H 4-19 mg/dL CREAT,SERUM 0.75 0.70-1.20 mg/dL eGFR 89 >60 mL/min/1.73m2 CKD-EPI Creatinine Equation (2020) ECRCL 80.95 50-250 ml/min BUN/CRE 27.5 H 10-20 RATIO T PROT 7.6 5.9-8.4 g/dL ALB 3.7 3.4-4.8 g/dL GLOB 3.9 2.2-4.2 g/dL A/G 0.9 0.9-2.4 RATIO Calcium 8.9 7.6-11.0 mg/dL PHOS 2.7 2.7-4.5 mg/dL Trop T High Sen 8 <=22 ng/L AST 41 H <=37 U/L ALK PHOS 199 H 40-129 U/L ALT 34 <=46 U/L T BILI 0.73 0.00-1.30 mg/dL CHOL 85 <=200 mg/dL Cholesterol level, Desirable <200 mg/dL Borderline high cholesterol 200-239 mg/dL High cholesterol >=240 mg/dL Recommendations of the NCEP Adult Treatment Panel for the following risk-cutoff thresholds for the [place] population. TRIG 42 mg/dL The drugs N-Acetylcysteine and Metamizole may falsely depress this assay. Normal range: <150 mg/dL Borderline High: 150-199 mg/dL High: 200-499 mg/dL Very High: >500 mg/dL MG 2.1 1.5-2.2 mg/dL NA 139 133-145 mmol/L Potassium 3.9 3.3-5.1 mmol/L CL 98 98-108 mmol/L CO2 25.7 21.0-32.0 mmol/L GAP 16 H 5-15 HDL 37 L mg/dL National Cholesterol Education Program (NCEP) guidelines: <40 mg/dL: Low HDL-cholesterol (major risk factor for CHD) >= 60 mg/dL: High HDL-cholesterol (negative risk factorfor CHD) HDL-cholesterol is affected by a number of factors, e.g. smoking, exercise, hormones, sex and age. CHOL:HDL 2.30 CLDL 40 mg/dL Jmfgcrhazg=657-721 mg/dL & Higher Uejs=367 mg/dL or greater Friedwald Equation for LDL-C VLDL 8 5-40 mg/dL TSH 0.518 0.300-4.200 uIU/mL Vitamin B12 515 180-914 pg/mL proBNP 3825 H <=1800 pg/mL Heart Failure Unlikely: < 300 pg/mL Heart Failure Likely < 50 Years: > 450 pg/mL 50-75 Years: > 900 pg/mL >75 Years: > 1800 pg/mL ABG Data ABG results: RUN DATE: 09/10/24 [facility], DEPARTMENT OF LABORATORIES PAGE 1 RUN TIME: 0438 Specimen Inquiry [address] [place], [place], [id number] PATIENT: ARTURO PEDERSEN LOC: [facility] U #: [id number] : 1940 AGE/SX: 83/M FACILITY: [facility] ROOM: [facility] RE09/10/[address]: Heidy Wilkerson STATUS:ADM IN ED: 1 DIS: ~ SPEC #: [id number] ANASTACIO: 09/10/24 STATUS: COMP REQ #: [id number] RECD: 09/10/[address]: Dr. Kristopher Valencia, DO ENTERED: 09/10/[address]: Dr. Shayne Zaidi MD ~ Test Result Flag Reference Range VIBG Blood Gas Type ARIEL SITE Not entered O2 Delivery Dev Cannula FI02 3.0 VBG pH 7.41 7.32-7.42 VBG pCO2 54.8 H 41-51 mmHg VBG PO2 68 H 25-40 mmHg VBG HCO3 35 H 22-26 mmol/L VBG BE 10 H -1.0-3.5 mmol/L VBG SO2 93 H 50-70 % VBG TCO2 37 H 23-33 mmol/L END OF REPORT Imaging [facility] Imaging Services [address] [place], [place] [address] Chest without Contrast MR#: [id number] Acct: [id number] Name: ARTURO PEDERSEN Rep #: [id number] : 1940 M 83 From: Jad Wheeler MD PCP: Dr. Shayne Zaidi MD Status: ADM IN Study: Chest without Contrast Date of Exam: 09/10/24 Exam# [id number] Ordering Dr: Kristopher Valencia DO PROCEDURE: CHEST WITHOUT CONTRAST 09/10/2024 REASON FOR EXAM: SUSPECTED PNA ON CXR. TECHNIQUE: Chest CT without contrast. Coronal and Sagittal reconstruction series were provided. One or more dose reduction techniques were used (e.g., Automated exposure control, adjustment of the mA and/or kV according to patient size, use of iterative reconstruction technique RADIATION DOSE SUMMARY: CTDlvol: 20 mGy DLP: 691 mGycm COMPARISON: CT 02/07/2024, FINDINGS: Unremarkable base of neck and axilla. Thoracic spine scoliosis and degeneration. Normal esophagus. Normal heart size. Status post CABG. Mediastinum is shifted to the left and the right hemidiaphragm is markedly elevated. Gynecomastia. No acute chest wall findings. Cholelithiasis. No acute upper abdominal findings. There is bilateral lower lobe bronchial wall thickening and debris. On the left, there is upper lobe airspace disease favoring atelectasis. There is posterior lower lobe airspace disease, likely a mix of atelectasis and consolidation. On the right, there is posterior upper lobe airspace disease favoring atelectasis. There is lower lobe airspace diseaselikely a mix of atelectasis and consolidation. No effusion or pneumothorax. CT/Chest without Contrast IMPRESSION: Bilateral airspace disease, correlate for aspiration pneumonia. Reading Location: [place] [address] CC: Dr. Kristopher Valencia DO; Dr. 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 Assessment & Plan Assessment/Plan (1) Aspiration pneumonia: QUALIFIERS: Aspiration pneumonia type: unspecified Laterality: unspecified laterality Lung location: unspecified part of lung Qualified Code(s): J69.0 - Pneumonitis due to inhalation of food and vomit (2) COPD with acute exacerbation: (3) Acute exacerbation of chronic heart failure: (4) Chest pain: QUALIFIERS: Chest pain type: unspecified Qualified Code(s): R07.9- Chest pain, unspecified (5) Respiratory insufficiency: (6) Generalized weakness: (7) Paroxysmal atrial fibrillation with RVR: (8) Anxiety disorder with panic attacks: (9) Subtherapeutic anticoagulation: (10) Overweight (BMI 25.0-29.9): (11) Central sleep apnea associated with atrial fibrillation: (12) Tinea cruris: PLAN: Plan 1. CXR that revealed Right hemidiaphragm elevation with Left perihilar opacity with patient subsequently diagnosed with Pneumonia; potentially due to aspiration - Admit to PCU. Continue empiric IV ceftriaxone and replace azithromycin with IV metronidazole to cover anaerobes due to potential adverse drug interaction with warfarin. Check urinary antigens Streptococcus pneumonia and Legionella. Check viral respiratory panel. Check CT scan of chest without contrast to confirm suspicion of pneumoniaon CXR. Give scheduled guaifenesin twice daily. Give acetaminophen as needed for obio-yu-ufaligii (level 1-5/10) pain or fever. Continue tramadol as needed for severe (level 6-10/10) pain. 2. Elevated pro-BNP of 2.4K consistent with AE CHF; of uncertain subtype and Chest Pain in the setting of previously known CAD; s/p CABG x 2 (1992) and stents x 2 (2021) complicating #1 - Continue IVfurosemide BID. Check echocardiogram to evaluate LVEF. Maintain on BASA, clopidogrel and prn SL NTGas previous. Serialize troponin. Finally, we will consult [facility] to see this patient on rounds in the a.m. for further recommendations without appreciated events. 3. AE COPD with Acute Respiratory Insufficiency compounding #1 & #2 - Continue IV methylprednisolone plus scheduled and prn nebulizers. Check VBG to establishbaseline this admission. 4. Generalized Weakness due to #1 - #3 - PT/OT and Case Management to consult and treat on rounds in the AM for further recommendations with help appreciated in advance. 5. Depression with Anxiety and Panic Attacks exacerbated by #1 - #4 - Maintain home medications plus give low-dose alprazolam prn BID for breakthrough symptoms. 6. Paroxysmal atrial fibrillation; on chronic warfarin with subtherapeutic INR of 1.5 present on admission - Resume warfarin and give one full-dose of enoxaparin in an effort to bridge until INR is therapeutic. Recheck INR to follow trend. 7. Overweight; with BMI of 29.3 present on admission with Central Sleep Apnea adding to the burden of disease outlined from #1 - #6 - Weight loss will be recommended. Check TSH. Continue nocturnal CPAP. 8. Tinea Cruris - Patient started on nystatin powder. 9. Essential hypertension; on amlodipine, atenolol and spironolactone - Maintain home regimen plus give prn hydralazine IV for systolic blood pressure >160 mmHg. 10. Hyperlipidemia; on atorvastatin - Restart statin and check Lipid Profile. 11. Hypothyroidism; on levothyroxine - Resume levothyroxine as before and checkTSH. 12. History of CVA; with Right hemiparesis - Stable. 13. History of Left vocal cord paralysis with chronic hoarseness - Stable. 14. History of dysphagia - We will consult speech therapy to evaluate with helpappreciated in advance. 15. Chronic Right hemidiaphragm elevation - Noted. 16. Idiopathic peripheral neuropathy; causing numbness and pain in both feet ongabapentin nightly -Continue gabapentin and check B12 and Folate levels to evaluate potentially reversible forms of neuropathy. 17. History of prostate cancer; s/p radiation treatment - Noted. 18. History of GERD; currently not on treatment - Start PPI in light of steroids used to treat #3. 19. OA; with history of Right ankle fracture and Right THR with chronic pain; on as needed tramadolevery 4 hours - We will follow pain regimen and scales outlined in #1. 20. DVT/GI prophylaxis - Give enoxaparin 90 mg sq once and continue warfarin. Check PT/INR daily tofollow trend and stop bridging with LMWH when INR 2 or greater. Pantoprazole 40 mg PO daily. Total time: Approximately (but not less than) 75 minutes. Charges/Coding Visit Charges Inpatient E&M: 88398 Init Hosp 09/10/24 0680 Cosigner Signature (if applicable): CC: Dr. Kristopher Valencia DO; Dr. Shayne Zaidi MD~ Signed [facility]08-04-2025 Evaluation note* Diagnosis Onset Date Resolution Status Admit Date Acute exacerbation of chronic heart failure acute September 1:26am Anxiety disorder with panic attacks acute September 10, 2024 1:26am Aspiration pneumonia acute 2024 1:26am Central sleep apnea associated with atrial fibrillation acute September 10, 2024 1:26am Chest pain acute September 10 1:26am Congestive heart failure acute September 10, 2024 1:26am Generalized weakness acute 2024 1:26am History of coronary artery stent placement December 16, 2021 acute September 10, 2 025 1:26am Hyperlipidemia acute September 1:26am Overweight (BMI 25.0-29.9) acute September 10, 2024 1:26am Paroxysmal atrial fibrillation with RVR acute September 1:26am Respiratory insufficiency acute September 10, 2024 1:26am Subtherapeutic anticoagulation acute September 10, 2024 1:26am Tinea cruris acute September 10, 2024 1:26am COPD with acute exacerbation chronic September 10, 2024 1:26am HTN (hypertension) chronic September 10, 2024 1:26am [facility] Work Phone: [phone]) 122-338408-04-2025 Radiology Diagnostic study note [facility] Imaging Services [address] [place], [place] [address] Chest without Contrast MR#: [id number] Acct: [id number] Name: ARTURO PEDERSEN Rep #: [id number] : 1940 M 83 From: Fatmata Wheeler MD PCP: Dr. Shayne Zaidi MD Status: ADM IN Study:Chest without Contrast Date of Exam: 09/10/24 Exam# [id number] Ordering Dr: Kristopher Yang DO PROCEDURE: CHEST WITHOUT CONTRAST 09/10/2024 REASON FOR EXAM: SUSPECTED PNA ON CXR. TECHNIQUE: Chest CT without contrast. Coronal and Sagittal reconstruction series were provided. One or more dose reduction techniques were used (e.g., Automated exposure control, adjustment of the mA and/or kV according to patient size, use of iterative reconstruction technique RADIATION DOSE SUMMARY: CTDlvol: 20 mGy DLP: 691 mGycm COMPARISON: CT 02/07/2024, FINDINGS: Unremarkable base of neck and axilla. Thoracic spine scoliosis and degeneration. Normal esophagus. Normal heart size. Status post CABG. Mediastinum is shifted to the left and the right hemidiaphragm is markedly elevated. Gynecomastia. No acute chest wall findings. Cholelithiasis. No acute upper abdominal findings. There is bilateral lower lobe bronchial wall thickening and debris. On the left, there is upper lobe airspace disease favoring atelectasis. There is posterior lower lobe airspace disease, likely a mix of atelectasis and consolidation. On the right, there is posterior upper lobe airspace disease favoring atelectasis. There is lower lobe airspace diseaselikely a mix of atelectasis and consolidation. No effusion or pneumothorax. CT/Chest without Contrast IMPRESSION: Bilateral airspace disease, correlate for aspiration pneumonia. Reading Location: [place] [address] CC: Dr. Kristopher Valencia DO; Dr. 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 [facility]08-04-2025 NotePatient Outreach ([facility]) ARTURO PEDERSEN ([id number]) 1940 M Date Time Provider Department 09/10/24 SERA KLINE [facility] [place] During your visit today, we recorded the following information about you: Sera Kline RN 09/10/2024 10:00 AM Signed ED Follow-Up Note Provider Action / FYI: Chest pain, pneumonia, CHF Call completed by: RN Patient seen in ED: In Network ED Contact made with Patient: Karen Pt was [facility] 09/09/24. Sera Kline RN September 10, 2024 9:53 AM Allergies As of Date: 09/10/2024 Noted Allergy Reaction ASPIRIN 04/19/2018 16 - Unknown OXYCODONE 04/19/2018 14 - Other: See Comments PERCODAN (OXYCODONE-ASPIRIN) 12/17/2004 1 - Mental Status Change Date Reviewed: 09/09/2024 Reviewed by: Daina Sampson RN - Fully Assessed Reason for Visit: ACM DELMIS RN [[id number]] Cmt: ED Utilization review per request of payor - [employer] Prescriptions as of 09/10/2024 - levothyroxine (SYNTHROID) 50 mcg tablet Take [...] once daily. Problem List As Of Date 09/10/2024 Noted Resolved Atherosclerotic cardiovascular disease [I25.10] 12/17/2004 Essential hypertension [I10] 12/17/2004 Hyperlipidemia [E78.5] 12/17/2004 PAROX VENTRIC TACHYCARD [I47.20] 01/11/2005 Depression [F32.A] 12/27/2008 Dyspnea [R06.00] 09/04/2009 Acquired hypothyroidism [E03.9] 09/26/2012 Obstructive sleep apnea on CPAP [G47.33] 12/19/2014 Adjustment disorder with mixed anxiety and depr*02/01/2017 Pure hypercholesterolemia [E78.00] 06/12/2018 Idiopathic peripheral neuropathy [G60.9] 06/22/2021 Abnormal electrocardiogram [R94.31] 10/19/2017 Anxiety [F41.9] 12/23/2021 Atherosclerotic heart disease of [place] coronar*10/19/2017 Cerebrovascular accident (CVA) (HCC) [I63.9] 12/23/2021 [...] BMI 30-34.9 [E66.811] 02/14/2024 Encounter Status:Closed by SERA KLINE on 09/10/24[facility] 09-09-2024 AhywHATS-FMZ-2 (AGENT OF COVID-19) RNA: Not detected INFLUENZA A RNA: Not detected INFLUENZA B RNA: Not detected RESPIRATORY SYNCYTIAL VIRUS (RSV) RNA: Not detectedFranklin Memorial HospitalComment on above:Performed By: #### [id number] #### [facility] CLIA [id number] [address] [place], [place] [address]8-02-2025 Telephone encounter Note* Telephone Encounter - Yudelka Harris RN - 09/08/2024 2:55 PM EDT Patient's caregiver called requesting a refill of [...] back when she returns home to him. Idid inform her not to hesitate to seek emergency treatment and she verbalized understanding. [facility]08-02-2025 Miscellaneous Notes* Telephone Encounter - Yudelka Harris RN - 09/08/2024 2:55 PM EDT Patient's caregiver called requesting a refill of [...] call back when she returns home to [facility]. Idid inform her not to hesitate to seek emergency treatment and she verbalized understanding. [facility] Telephone encounter Note * Telephone Encounter - Shwetha Kendrick - 09/05/2024 4:33 PM EDT Lvm and letter Provider only at [place] now [facility]07-30-2025 Miscellaneous Notes* Telephone Encounter - Shwetha Kendrick - 09/05/2024 4:33 PM EDT Lvm and letter Provider only at [place] now [facility] Telephone encounter Note * Telephone Encounter - Vivi Shaffer MA - 08/14/2024 2:04 PM EDT Pharmacy verified in [facility] Patient has been identified by [...] Not applicable Please advise. Vivi Shaffer MA [facility]07-08-2025 Miscellaneous Notes* Telephone Encounter - Vivi Shaffer MA - 08/14/2024 2:04 PM EDT Pharmacy verified in [facility] Patient has been identified by [...] advise. Vivi Shaffer MA documented in this encounterM[facility]field [facility]06-06-2025 NoteHNO ID: [id number] Author: PADDY ZAIDI MD Service: ? Author Type: Physician Type: Progress Notes Filed: 07/13/2024 17:45 Note Text: Subjective Adrian Pedersen is an 83-year-old male with a history of anxiety, presenting with dyspnea, lower extremity edema, and anxiety attacks, accompanied by his caregiver, Hui Ray, who is providing additional history. Dyspnea atherosclerotic heart disease: Pending electophys eval in [place] in November. 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 Atherosclerosis of [place] coronary artery of [place] heart without angina pectoris (I25.10) - Referral to cardiology in [place] initiated for further evaluation and management. - [...] - Prescription sent to pharmacy. Recording using Purple software for draft documentation of the visit was discussed with the patient/authorized field representative; all questions welcomed and answered. Patient/authorized field representative agreed to proceed Paddy Zaidi [facility]06-06-2025 History of Present illness Narrative* Paddy Zaidi MD - 07/13/2024 5:40 PM EDT Subjective Adrian Pedersen is an 83-year-old male with a history of anxiety, presenting with dyspnea, lower extremity edema, and anxiety attacks, accompanied by his caregiver, Hui Rya, who is providing additional history. Dyspnea atherosclerotic heart disease: Pending electophys eval in [place] in November. 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 Atherosclerosis of [place] coronary artery of [place] heart without angina pectoris (I25.10) - Referral to cardiology in [place] initiated for further evaluation and management. - [...] - Prescription sent to pharmacy. Recording using Purple software for draft documentation of the visit was discussed with the patient/authorized field representative; all questions welcomed and answered. Patient/authorized field representative agreed to proceed Paddy Zaidi MD documented in this encounterM[facility]06-[facility]-2025 Telephone encounter Note * Telephone Encounter - Flavia Smith APRN.CNP - 07/13/2024 4:37 PM EDT Review of OSH CT with most recent CT does not show worsening of right hemidiaphragm. Left lower lobe nodule no longer seen. Atelectasis in LLL but no further concern for PNA. Needs to complete overnight oxygen testing. [facility]06-06-2025 Miscellaneous Notes* Telephone Encounter - Flavia Smith APRN.CNP - 07/13/2024 4:37 PM EDT Review of OSH CT with most recent CT does not show worsening of right hemidiaphragm. Left lower lobe nodule no longer seen. Atelectasis in LLL but no further concern for PNA. Needs to complete overnight oxygen testing. documented in this encounterM[facility]06[facility] Telephone encounter Note * Telephone Encounter - Paddy Zaidi MD - 07/13/2024 1:50 PM EDT The following approved medication requests [...] ZAIDI Due for appt. Paddy Zaidi MD [facility]25 Miscellaneous Notes* Telephone Encounter - Paddy Zaidi MD - 07/13/2024 1:50 PM EDT The following approved medication requests [...] ZAIDI Due for appt. Paddy Zaidi MD * Telephone Encounter - Noemy Summers LPN - 07/13/2024 1:40 PM EDT Prescription Refill Information The patient has been [...] 13, 2024 1:41 PM documented in this encounterMans[facility] Hospital06-[facility] Telephone encounter Note * Telephone Encounter - Noemy Summers LPN - 07/13/2024 1:40 PM EDT Prescription Refill Information The patient has been [...] Summers LPN July 13, 2024 1:41 PM [facility]2025 Telephone encounter Note* Telephone Encounter - Talia Ann LPN - 07/12/2024 11:46 AM EDT Prescription Refill Information The patient has been [...] Ann LPN July 12, 2024 11:46 AM [facility]06-05-2025 Miscellaneous Notes* Telephone Encounter - Talia Ann LPN - 07/12/2024 11:46 AM EDT Prescription Refill Information The patient has been [...] 12, 2024 11:46 AM documented in this encounterM[facility]05-27-[facility] Telephone encounter Note * Telephone Encounter - Mary Zaldivar RN - 07/03/2024 9:38 AM EDT Spoke to Hui who said patient is taking coumadin daily - believes it is 1 pill a day but is not with patient/able to check. States she was unaware that INR needed to be completed - has not been monitored. OV tomorrow Would you like to make changes at this time or wait until OV? [facility]05-27-2025 Miscellaneous Notes* Telephone Encounter - Mary Zaldivar RN - 07/03/2024 9:38 AM EDT Spoke to Hui who said patient is taking coumadin daily - believes it is 1 pill a day but is not with patient/able to check. States she was unaware that INR needed to be completed - has not been monitored. OV tomorrow Would you like to make changes at this time or wait until OV? * Telephone Encounter - Gloria Florian RN - 06/29/2024 3:43 PM EDT Called patient's livestock caretaker Hui and patient's son, no answer at this time. Left voicemail to call the office back. * Telephone Encounter - Georgiana Hogue APRN.SHANNAN - 06/29/2024 3:37 PM EDT Please advise the patient that his INR (no units) Date Value 06/29/2024 1.2 is very too low/subtherapeutic. INR has not been checked in 3 months. Has someone else been monitoring this? Is he taking coumadin? documented in this encounterMans[facility]05-[facility]25 Telephone encounter Note * Telephone Encounter - Gloria Florian RN - 06/29/2024 3:43 PM EDT Called patient's livestock caretaker Hui and patient's son, no answer at this time. Left voicemail to call the office back. [facility]05-[facility]25 Telephone encounter Note* Telephone Encounter - Georgiana Hogue APRN.SHANNAN - 06/29/2024 3:37 PM EDT Please advise the patient that his INR (no units) Date Value 06/29/2024 1.2 is very too low/subtherapeutic. INR has not been checked in 3 months. Has someone else been monitoring this? Is he taking coumadin? [facility] Work Phone: 1(258) 224-530505-23-2025 NoteHNO ID: [id number] Author: FLAVIA SMITH APRN.SHANNAN Service: ? Author Type: Nurse Practitioner Type: Progress Notes Filed: 06/29/2024 19:32 Note Text: Pulmonary Medicine Patients name: Arturo Campbell PCP: Paddy Zaidi MD CC: follow-up HPI: Arturo Pedersen is a 83 year old male former 04-pxec-wgfr smoker quitting in 1992 with PMH significant for obesity, coronary artery disease s/p CABG and stent, previous stroke, GERD, HLD, prostate cancer s/p radiation, HTN, PAF on AC, central sleep apnea not wearing PAP, chronic hypoxemic respiratory failure. Current inhaled therapy Advair and PRN Albuterol. He presents today for follow-up with his follow up rep. YOLANDA 03/2024 with exertional dyspnea, chest tightness and wheezing. Started on Advair at that time. Oximetry with ambulation at that time did not show need for supplemental O2 with exertion. He and his follow up rep insist he can't even stand up without [...] appearance. He is not ill-appearing. Comments: Very [place] HENT: Head: Normocephalic. Nose: No rhinorrhea. Mouth/Throat: Mouth: Mucous membranes are moist. Pharynx: No oropharyngeal exudate. Cardiovascular: (more content not included)...[facility] 06-21-2024 NoteHNO ID: [id number] Author: CORRINA FUENTES MA Service: ? Author Type: Forest Economist Type: Progress Notes Filed: 06/21/2024 08:30 Note Text: POPULATION HEALTH NAVIGATION OUTREACH Action/FYI Letter received and sent to be mailed. Navigation Signature: Corrina Fuentes MA June 21, 2024 8:30 [facility]05-14-2025 NoteHNO ID: [id number] Author: ANT DIAS MA Service: ? Author Type: Forest Economist Type: Progress Notes Filed: 06/20/2024 08:24 Note [...] Healthy at Home (H@H) phone number provided [phone]: Yes via letter Reason for Outreach Value Hub Care Gaps due: Medicare Annual Wellness Visit Patient Contacted: Unable or unnecessary to reach patient: Unable to leave message Letter mailed Navigation Signature: Ant Dias MA June 20, 2024 8:22 [facility]05-13-2025 Telephone encounter Note* Telephone Encounter - Paddy Zaidi MD - 06/19/2024 1:05 PM EDT The following approved medication requests [...] once daily. Authorizing Provider: PADDY ZAIDI MD [facility]05-13-2025 Miscellaneous Notes* Telephone Encounter - Paddy Zaidi MD - 06/19/2024 1:05 PM EDT The following approved medication requests [...] once daily. Authorizing Provider: PADDY ZAIDI MD * Telephone Encounter - Talia Ann LPN - 06/18/2024 1:48 PM EDT Prescription Refill Information The patient has been [...] 18, 2024 1:48 PM documented in this encounterMans[facility]05-[facility] Telephone encounter Note * Telephone Encounter - Talia Ann LPN - 06/18/2024 1:48 PM EDT Prescription Refill Information The patient has been [...] Ann LPN June 18, 2024 1:48 PM [facility]05-12-2025 NoteHNO ID: [id number] Author: ANT DIAS MA Service: ? Author Type: Forest Economist Type: Progress Notes Filed: 06/18/2024 12:47 Note [...] Healthy at Home (H@H) phone number provided [phone]: No Reason for Outreach Value [facility] Care Gaps due: Medicare Annual Wellness Visit Patient Contacted: Unable or unnecessary to reach patient: Unable to leave message Navigation Signature: Ant Dias MA June 18, 2024 12:44 [facility]05-12-2025 History of Present illness Narrative* Ant Dias MA - 06/18/2024 12:44 PM EDT POPULATION HEALTH NAVIGATION OUTREACH Action/FYI Patient is [...] Healthy at Home (H@H) phone number provided [phone]: No Reason for Outreach Value Hub Care Gaps due: Medicare Annual Wellness Visit Patient Contacted: Unable or unnecessary to reach patient: Unable to leave message Navigation Signature: Ant Dias MA June 18, 2024 12:44 PM * Brayan Stallworth RN - 06/18/2024 12:28 PM EDT Value Based Care Coordination Chart Review Provider [...] 18, 2024 12:28 PM documented in this encounterMans[facility]05-12-2025 NoteHNO ID: [id number] Author: BRAYAN STALLWORTH RN Service: ? Author [...] Brayan Stallworth RN June 18, 2024 12:28 [facility]05-12-2025 NotePatient Outreach ([facility]) ARTURO PEDERSEN ([id number]) 1940 M Date Time Provider Department 06/18/24 BRAYAN STALLWORTH During your visit today, we recorded the [...] Healthy at Home (H@H) phone number provided [phone]: No Reason for Outreach Value Hub Care Gaps due: Medicare Annual Wellness Visit Patient Contacted: Unable or unnecessary to reach patient: Unable to leave message Navigation Signature: Ant Dias MA June 18, 2024 12:44 PM Ant Dias MA 06/20/2024 8:24 AM Signed [facility] NAVIGATION OUTREACH Action/FYI Patient is on Value [...] Healthy at Home (H@H) phone number provided [phone]: Yes via letter Reason for Outreach Value Hub Care Gaps due: Medicare Annual Wellness Visit Patient Contacted: Unable or unnecessary to reach patient: Unable to leave message Letter mailed Navigation Signature: Ant Dias MA June 20, 2024 8:22 AM Corrina Fuentes MA 06/21/2024 8:30 AM Signed POPULATION HEALTH NAVIGATION OUTREACH Action/FYI Letter received and sent to be mailed. Navigation Signature: Corrina Fuentes MA June 21, 2024 8:30 AM Allergies As of Date: 06/18/2024 Noted Allergy Reaction ASPIRIN 04/19/2018 16 - Unknown OXYCODONE 04/19/2018 14 - Other: See Comments PERCODAN (OXYCODONE-ASPIRIN) 12/17/2004 1 - Mental Status Change Date Reviewed: 03/27/2024 Reviewed by: Flavia Smith APRN.AUTO CAMP ATTENDANT - Fully Assessed Reason for Visit: Population Health Navigation Outreach [3910] Cmt: Value [facility] Prescriptions as of 06/21/2024 - furosemide (LASIX) [...] 09/26/2012 Obstructive sleep apnea (more content not included)...[facility] 04-26-2024 NoteHNO ID: [id number] Author: TALIA FERREIRA MA Service: ? Author Type: Forest Economist Type: Progress Notes Filed: 04/26/2024 14:42 Note [...] Talia Ferreira MA April 26, 2024 2:37 [facility]CM[facility] History of Present illness Narrative* Talia Ferreira MA - 04/26/2024 2:36 PM EDT POPULATION HEALTH NAVIGATION OUTREACH Action/FYI Left message on patient's voice mail to return my call. [employer] High Risk Patient is on ACO for the following care gaps: Last office visit 02/14/24. Wellness Visit MyChart Reason for Outreach Care Gap/HCC or Scheduling Wellness Visits Care Gaps due: Medicare Annual Wellness Visit Patient Contacted: Unable or unnecessary to reach patient: Left message Navigation Signature: Talia Ferreira MA April 26, 2024 2:37 PM documented in this encounterM[facility]03-[facility]-2025 NotePatient Outreach (NETNAV) ARTURO PEDERSEN ([id number]) 1940 M Date Time Provider Department 04/26/24 TALIA FERREIRA During your visit today, we recorded the [...] Date Reviewed: 03/27/2024 Reviewed by: Flavia Smith APRN.AUTO CAMP ATTENDANT - Fully Assessed Reason for Visit: [...] Anxiety [F41.9] 12/23/2021 Atherosclerotic heart disease of gakona coronar*10/19/2017 Cerebrovascular accident (CVA) (HCC) [I63.9] 12/23/2021 [...] 02/14/2024 Encounter Status:Closed by TALIA FERREIRA on 04/26/24[facility] 04-09-2024 Miscellaneous Notes* Telephone Encounter - Talia Ann LPN - 04/09/2024 11:10 AM EST Prescription Refill Information The patient has been [...] Warfarin Sodium 2.5 MG Oral Tablet] 30 tablet0 Sig: TAKE 1 TABLET BY MOUTH ONCE DAILY DIRECTED Talia Ann LPN April 09, 2024 11:10 AM documented in this encounterMans[facility] Hospital03-[facility]-2025 Telephone encounter Note * Telephone Encounter - Talia Ann LPN - 04/09/2024 11:10 AM EST Prescription Refill Information The patient has been [...] Warfarin Sodium 2.5 MG Oral Tablet] 30 tablet0 Sig: TAKE 1 TABLET BY MOUTH ONCE DAILY DIRECTED Talia Ann LPN April 09, 2024 11:10 AM [facility]02-18-2025 History of Present illness Narrative* Deanne Samuels RT(R) - 03/27/2024 3:40 PM EST Radiology Service Progress Note PATIENT NAME: Arturo [...] PATIENT PRESENTS WITH AN IMPLANTABLE OR ATTACHED LOGISTICS TEAM LEAD: No RADIOLOGY DEPARTMENT: CT; Exam(s) Completed: Chest PERIPHERAL IV DATA: Not applicable SIGNED BY: RT Alfonso(R) March 27, 2024 3:57 PM documented in this encounterMansfield Hospital02-18-2025 NoteHNO ID: [id number] Author: DEANNE SAMUELS RT(R) Service: ? Author Type: Gas Desulfurizer Type: Progress Notes Filed: 03/27/2024 15:57 Note [...] PATIENT PRESENTS WITH AN IMPLANTABLE OR ATTACHED LOGISTICS TEAM LEAD: No RADIOLOGY DEPARTMENT: CT; Exam(s) Completed: Chest PERIPHERAL IV DATA: Not applicable SIGNED BY: RT Alfonso(R) March 27, 2024 3:57 [facility]02-18-2025 Instructions* Patient Instructions* Flavia Smith APRN.CNP - 03/27/2024 2:58 PM EST Fluticasone-salmeterol (Advair) [...] I get the results. documented in this encounterM[facility] Hospital02-18-2025 History of Present illness Narrative* Flavia Smith APRN.CNP - 03/27/2024 2:00 PM EST Images from the original note were not included. Pulmonary Medicine Patients name: Arturo Campbell PCP: Paddy Zaidi MD CC: follow-up HPI: Arturo Pedersen is a 83 year old male former 24-pcjh-kgko smoker quitting in 1992 with PMH significant [...] Had also just previously been hospitalized at [facility] for Pneumonia. At his last visit, [...] Occasional chest tightness. Has frequent wheezing that promptshis follow up rep to remind him to use Albuterol. No fevers, chills, or night sweats. No unintended weight loss. Occasional lower extremity edema. He reports sleeping in a chair d/t feeling like he can'tbreath when he lays flat. He was just [...] 160-9-4.8 mcg/actuation HFA aerosol inhaler Generic drug: bhvrrhdctn-wfqivhwf-gxngeejlgv Inhale 2 Puffs as instructed two times [...] Stage 3 severe COPD by GOLD classification ([facility]) - ICD9: 496, ICD10: J44.9 (primary diagnosis) - poor control of COPD symptoms and not currently on maintenance inhaler. - previously prescribed Breztri, could not afford. - will try ICS/LABA with Fluticasone-salmeterol (Advair) 250-50 MCG 1 puff twice daily. Rinse mouthafter every use. - Continue Albuterol PRN. - [...] which included preparing to see the patient, zikm-dh-qzva patient care, completing clinical documentation, performing a medically appropriate examination, counseling and educating the patient/family/caregiver, and ordering medications, tests,or procedures. documented in this encounterM[facility]02-[facility]-2025 NoteHNO ID: [id number] Author: FLAVIA SMITH APRN.SHANNAN Service: ? Author Type: Nurse Practitioner Type: Progress Notes Filed: 03/27/2024 17:53 Note Text: Pulmonary Medicine Patients name: Arturo Campbell PCP: Paddy Zaidi MD CC: follow-up HPI: Arturo Pedersen is a 83 year old male former 84-sgtj-bapg smoker quitting in 1992 with PMH significant [...] Had also just previously been hospitalized at [facility] for Pneumonia. At his last visit, [...] tightness. Has frequent wheezing that prompts his follow up rep to remind him to use Albuterol. No [...] 160-9-4.8 mcg/actuation HFA aerosol inhaler Generic drug: ehjkuiiyib-wwfbsgfu-mzadduxxlw Inhale 2 Puffs as instructed two times [...] appearance. HENT: Head: [place] (more content not included)...[facility]02-18-2025 NoteHNO ID: [id number] Author: SHELLY SIMS RPFT Service: ? Author [...] Comment: Patient does not have a faster paceMer[facility] Health [facility] Procedure note* hSelly Sims RPFT - 03/27/2024 1:49 PM ESTAssociated Order(s): OXIMETRY WITH AMBULATION RESPIRATORY THERAPY OXIMETRY WITH [...] Patient does not have a faster pace [facility]02-18-20[facility] Procedure note* Shelly Sims RPFT - 03/27/2024 1:49 PM ESTAssociated Order(s): OXIMETRY WITH AMBULATION RESPIRATORY THERAPY OXIMETRY WITH [...] have a faster pace documented in this encounterM[facility] Hospital02-18-2025 NoteHNO ID: [id number] Author: HSELLY SIMS RPFT Service: ? Author Type: Respiratory Therapist Type: Progress Notes Filed: 03/27/2024 13:50 Note Text: PULM FUNCTION: Provider: Raina Huynh MD Assisting Tech: Shelly Sims RPFT Oximetry - Ambulation: 1CMet[facility]02-[facility] History of Present illness Narrative* Shelly Sims RPFT - 03/27/2024 1:47 PM EST PULM FUNCTION: Provider: Raina Huynh MD Assisting Tech: Shelly Sims RPFT Oximetry - Ambulation: 1 documented in this encounterMans[facility] Hospital02-12-2025 Telephone encounter Note * Telephone Encounter - Lacie Muñoz - 03/21/2024 1:06 PM EST I spoke with Adrian, and he is now scheduled to see Dr. Zaidi on Tuesday. There were many available times remaining for this week, but Adrian and his caregiver declined all options. They said he does notfeel it is an emergency. I explained primary care team really wanted him to be seen this week, but they declined. Lacie Muñoz [facility]02-12-2025 Miscellaneous Notes* Telephone Encounter - Lacie Muñoz - 03/21/2024 1:06 PM EST I spoke with Adrian, and he is now scheduled to see Dr. Zaidi on Tuesday. There were many available times remaining for this week, but Adrian and his caregiver declined all options. They said he does notfeel it is an emergency. I explained primary care team really wanted him to be seen this week, but they declined. Lacie Muñoz * Telephone Encounter - Hever Martínez APRN.CNP - 03/21/2024 12:52 PM EST Please offer appointment with Dr. Zaidi this week Hever Martínez APRN.SHANNAN * Telephone Encounter - Isabell Sood RN - 03/21/2024 12:05 PM EST Patient states he has discussed some issues [...] wait that long to see someone about theseepisodes. Hui is going to call to see if he can be seen earlier by Cardiology, if not will make an appt. To see PCP, advised PCP does have availability to be seen. To go to the ED if sx warrant medical attention. FYI documented in this encounterMans[facility] Hospital02-12-2025 Telephone encounter Note * Telephone Encounter - Hever Martínez APRN.CNP - 03/21/2024 12:52 PM EST Please offer appointment with Dr. Zaidi this week Hever Martínez APRN.AUTO CAMP ATTENDANT [facility]02-12-2025 Telephone encounter Note* Telephone Encounter - Isabell Sood RN - 03/21/2024 12:24 PM EST Hui states patient was supposed to have a refill of the Lasix after an OV on 02/14/2024, it was not prescribed. Has been out since that visit. Please address. Rx pended. [facility]02-12-2025 Miscellaneous Notes* Telephone Encounter - Isabell Sood RN - 03/21/2024 12:24 PM EST Hui states patient was supposed to have a refill of the Lasix after an OV on 02/14/2024, it was not prescribed. Has been out since that visit. Please address. Rx pended. documented in this encounterM[facility]02-12-2025 Telephone encounter Note * Telephone Encounter - Isabell Sood RN - 03/21/2024 12:05 PM EST Patient states he has discussed some issues [...] wait that long to see someone about theseepisodes. Hui is going to call to see if he can be seen earlier by Cardiology, if not will make an appt. To see PCP, advised PCP does have availability to be seen. To go to the ED if sx warrant medical attention. FYI [facility]02-12-2025 Telephone encounter Note* Telephone Encounter - Isabell Sood RN - 03/21/2024 11:56 AM EST Spoke to Hui and patient at length. Patient will take 7.5 mg of Coumadin tomorrow then resume taking 2.5 mg like he has been. Will have BW done around 03/29. Tracker done [facility]02-12-2025 Miscellaneous Notes* Telephone Encounter - Isabell Sood RN - 03/21/2024 11:56 AM EST Spoke to Hui and patient at length. Patient will take 7.5 mg of Coumadin tomorrow then resume taking 2.5 mg like he has been. Will have BW done around 03/29. Tracker done * Telephone Encounter - Natalia Massey RN - 03/19/2024 10:52 AM EST Called [phone]. No answer. Mailbox still full. * Telephone Encounter - Violetta Humphrey RN - 03/17/2024 9:30 AM EST Called Hui at [phone] Vm still full-could not leave message. Called all other listed numbers- no answer. VM's are all full-could not leave message. Not active on MyChart. Will need to try again later. Violetta Humphrey RN * Telephone Encounter - Paddy Zaidi MD - 03/16/2024 5:19 PM EST Just take 1 time dose of 5 mg. One extra pill just one dose. Check INR in 2 weeks Paddy Zaidi MD * Telephone Encounter - Violetta Humphrey RN - 03/16/2024 12:59 PM EST Spoke to Hui- states he has been taking warfarin every day, 2.5 mg. Never misses a day. Call Hui back with response [phone]-did advise her to clean out VM so we can leave messages. Violetta Humphrey RN * Telephone Encounter - Karo Wilkinson RN - 03/12/2024 2:40 PM EST Called pt, no answer. LVM to call office back * Telephone Encounter - Violetta Humphrey RN - 03/07/2024 9:48 AM EST Called all numbers listed in chart- no answer. No VM available to leave message. Not on MYChart. Will need to try again later. Violetta Humphrey, RN * Telephone Encounter - Paddy Zaidi MD - 03/06/2024 2:03 PM EST INR is a little low , have you been taking warfarin 2.5 mg daily every day? May need to increase dose a bit. Please review with patient and advise. Paddy Zaidi MD documented in this encounterMansfield Hospital02-11-2025 NoteHNO ID: [id number] Author: ELENITA DEY MA Service: ? Author Type: Forest Economist Type: Progress Notes Filed: 03/20/2024 16:32 Note [...] Elenita Dey MA March 20, 2024 4:29 [facility]02-11-2025 History of Present illness Narrative* Elenita Dey MA - 03/20/2024 4:29 PM EST POPULATION HEALTH NAVIGATION OUTREACH Action/FYI Left message [...] 20, 2024 4:29 PM documented in this encounterMans[facility] Hospital02-11-2025 NotePatient Outreach (NETNAV) ARTURO PEDERSEN ([id number]) 1940 M Date Time Provider Department 03/20/24 ELENITA DEY During your visit today, we recorded the [...] Change Date Reviewed: 03/05/2024 Reviewed by: Edwina De León LPN - Fully Assessed Reason for Visit: Population Health Navigation Outreach [3910] Cmt: [employer] High Risk Attempt #1 Prescriptions as of 03/20/2024 - warfarin (COUMADIN) 2.5 mg tablet TAKE 1 TABLET BY MOUTH ONCE DAILY DIRECTED - jbqhwkzela-xfohiowr-ppjmzlignw (BREZTRI AEROSPHERE) 160-9-4.8 mcg/actuation HFA aerosol inhaler [...] Anxiety [F41.9] 12/23/2021 Atherosclerotic heart disease of gak[place] coronar*10/19/2017 Cerebrovascular accident (CVA) (HCC) [I63.9] 12/23/2021 [...] 02/14/2024 Encounter Status:Closed by ELENITA DEY on 03/20/24[facility] 03-19-2024 Telephone encounter Note* Telephone Encounter - Natalia Massey RN - 03/19/2024 10:52 AM EST Called [phone]. No answer. Mailbox still full. [facility]02-08-2025 Telephone encounter Note* Telephone Encounter - Violetta Humphrey RN - 03/17/2024 9:30 AM EST Called Hui at [phone] Vm still full-could not leave message. Called all other listed numbers- no answer. VM's are all full-could not leave message. Not active on MyChart. Will need to try again later. Violetta Humphrey RN [facility]02-07-2025 Telephone encounter Note* Telephone Encounter - Paddy Zaidi MD - 03/16/2024 5:19 PM EST Just take 1 time dose of 5 mg. One extra pill just one dose. Check INR in 2 weeks Paddy Zaidi MD [facility]02-07-2025 Telephone encounter Note* Telephone Encounter - Violetta Humphrey RN - 03/16/2024 12:59 PM EST Spoke to Hui- states he has been taking warfarin every day, 2.5 mg. Never misses a day. Call Hui back with response [phone]-did advise her to clean out VM so we can leave messages. Violetta Humphrey RN [facility]02-04-2025 Telephone encounter Note* Telephone Encounter - Talia Ann LPN - 03/13/2024 8:22 AM EST Prescription Refill Information The patient has been [...] Warfarin Sodium 2.5 MG Oral Tablet] 30 tablet0 Sig: TAKE 1 TABLET BY MOUTH ONCE DAILY DIRECTED Talia Ann LPN March 13, 2024 8:22 AM [facility]02-04-2025 Miscellaneous Notes* Telephone Encounter - Talia Ann LPN - 03/13/2024 8:22 AM EST Prescription Refill Information The patient has been [...] Warfarin Sodium 2.5 MG Oral Tablet] 30 tablet0 Sig: TAKE 1 TABLET BY MOUTH ONCE DAILY DIRECTED Talia Ann LPN March 13, 2024 8:22 AM documented in this encounterMansfield Hospital02-03-2025 Telephone encounter Note * Telephone Encounter - Karo Wilkinson RN - 03/12/2024 2:40 PM EST Called pt, no answer. LVM to call office back [facility]01[facility]29[facility] Telephone encounter Note* Telephone Encounter - Violetta Humphrey RN - 03/07/2024 9:48 AM EST Called all numbers listed in chart- no answer. No VM available to leave message. Not on MYChart. Will need to try again later. Violetta Humphrey RN [facility]01-28-2025 Telephone encounter Note* Telephone Encounter - Paddy Zaidi MD - 03/06/2024 2:03 PM EST INR is a little low , have you been taking warfarin 2.5 mg daily every day? May need to increase dose a bit. Please review with patient and advise. Paddy Zaidi MD [facility]01-28-2025 Telephone encounter Note* Telephone Encounter - Edwina De León LPN - 03/06/2024 9:57 AM EST Breztri and Trelegy both showing as preferred level 1 in orders tab. Per [employer] SERS plan formulary list, preferred brand name drugs come with 25% copay (max of $100) per 30 day supply. Patient also has the option of mail order for max copay of $200 for a 90 day supply. Spoke with patient's son Gila re: same. If medication is cost prohibitive we could see if SW can inquire about medication assistance. Edwina De León LPN [facility]01-28-2025 Miscellaneous Notes* Telephone Encounter - Edwina De León LPN - 03/06/2024 9:57 AM EST Breztri and Trelegy both showing as preferred level 1 in orders tab. Per [employer] S[employer] plan formulary list, preferred brand name drugs come with 25% copay (max of $100) per 30 day supply. Patient also has the option of mail order for max copay of $200 for a 90 day supply. Spoke with patient's son Gila re: same. If medication is cost prohibitive we could see if SW can inquire about medication assistance. Edwina De León LPN * Telephone Encounter - Judy Wong MA - 03/06/2024 9:27 AM EST Analilia - Pharmacist from [facility] calling and asking if there is an alternative to the Breztri inhaler? Patient has a $100.00 copay and is unable to afford it. documented in [facility] Telephone encounter Note * Telephone Encounter - Judy Wong MA - 03/06/2024 9:27 AM EST Analilia - Pharmacist from [facility] calling and asking if there is an alternative to the Breztri inhaler? Patient has a $100.00 copay and is unable to afford it. [facility]01-27-2025 History of Present illness Narrative* Raina Huynh MD - 03/05/2024 3:15 PM EST Images from the original note were not included. . [facility] [place] Note Patient name: Arturo Pedersen PCP: Paddy Zaidi MD Referring Physician: Hever Martínez CNP Consultation requested by Hever Martínez for an opinion regarding COPD. My final recommendations willbe communicated back to the requesting physician by way of shared Medical record or letter to requesting physician via US mail. CC: COPD HPI: Arturo Pedersen 83 year old male former [id number] smoker quitting in 1992 with PMH significant for obesity, coronary artery disease s/p CABG and stent, previous stroke, GERD, HLD, prostate cancer s/p radiation, HTN, PAF on AC, central sleep apnea not wearing PAP, chronic hypoxemic respiratory failure being sent for evaluation of COPD. Recently hospitalized at [facility]. CT of the chest shows left lower lobe infiltrate, atelectasis in right lower lobe and a left lower lobe nodule. He was discharged on albuterol as needed. He does not have maintenance inhaler. He is questioning whether he needs to continue with supplemental oxygen. Main pulmonary symptomsare dyspnea with exertion, chest congestion, difficulty expectorating mucus, no audible wheezing. He denies any chest pain. He denies history of recurrent bronchitis. DME: [employer] DATA: PFT: PFT [facility] 10/23/2018; FVC 2.41 L 57% FEV1 1.62 L 54% FEV1/FVC 67% No improvement post-bronchodilator TLC 5.01 L 76% RV 2.60 L 94% RV/TLC 52% DLCO 15.2 73% Imaging / Diagnostic Studies: [facility] MR#: [id number] Acct: [id number] Name: ARTURO PEDERSEN Rep #: [id number] : 1940 M 83 From: Shayne Holt [...] the tongue every 5 minutes as needed. jgvmidmvwv-psipbswi-ozdojiktdy (BREZTRI AEROSPHERE) 160-9-4.8 mcg/actuation HFA aerosol inhaler [...] use: No Drug use: No Worked at [employer] for 32 years Pets: None FAMILY HISTORY Problem Relation Age of Onset Heart Father Prostate Cancer Father Alzheimer's Disease Mother PAST SURGICAL HISTORY Procedure Laterality Date ARTHRP ACETBLR/PROX FEM PROSTC AGRFT/ALGRFT CABG (2) VEIN GRAFTS & ARTERIAL GRAFT(S PAST SURGICAL HISTORY OF 07/24/2018 removal of hardware, left thr radiation for prostate cancer TREAT HIP FRACTURE(S) Left 11/2017 hip screw placed [facility] PMH, Social history, family history and [...] -Ambulation oximetry testing Raina Huynh MD [facility] [place] documented in this encounterMansfield [facility]01-[facility]25 NoteHNO ID: [id number] Author: RAINA HUYNH MD Service: ? Author Type: Physician Type: Progress Notes Filed: 03/05/2024 16:00 Note Text: . [facility] [place] Note Patient name: Arturo Pedersen PCP: Paddy Zaidi MD Referring Physician: Hever Martínez CNP Consultation requested by Hever Martínez for an opinion regarding COPD. My final recommendations will be communicated back to the requesting physician by way of shared Medical record or letter to requesting physician via [place] mail. CC: COPD HPI: Arturo Pedersen 83 year old male former [id number] smoker quitting in 1992 with PMH significant for obesity, coronary artery disease s/p CABG and stent, previous stroke, GERD, HLD, prostate cancer s/p radiation, HTN, PAF on AC, central sleep apnea not wearing PAP, chronic hypoxemic respiratory failure being sent for evaluation of COPD. Recently hospitalized at [facility] for pneumonia. CT of the chest [...] recurrent bronchitis. DME: [employer] DATA: PFT: PFT [facility] 10/23/2018; FVC 2.41 L 57% FEV1 1.62 L 54% FEV1/FVC 67% No improvement post-bronchodilator TLC 5.01 L 76% RV 2.60 L 94% RV/TLC 52% DLCO 15.2 73% Imaging / Diagnostic Studies: [facility] MR#: [id number] Acct: [id number] Name: ARTURO PEDERSEN Rep #: [id number] : 1940 83 From: Shayne Holt MD [...] the tongue every 5 minutes as needed. wafzgkdoul-opxezext-enyuwoznle (BREZTRI AEROSPHERE) 160-9-4.8 mcg/actuation HFA aerosol inhaler [...] by mouth every morning. (more content not included)...[facility]01-27-2025 NoteHNO ID: [id number] Author: SHELLY SIMS RPFT Service: ? Author Type: Respiratory Therapist Type: Progress Notes Filed: 03/05/2024 15:09 Note Text: PULM FUNCTION: Provider: Raina Huynh MD Assisting Tech: Shelly Sims RPFT Spirometry w/BD: 1 [facility]CO[facility] History of Present illness Narrative * Shelly Sims RPFT - 03/05/2024 3:04 PM EST PULM FUNCTION: Provider: Raina Huynh MD Assisting Tech: Shelly Sims RPFT Spirometry w/BD: 1 DLCO: 1 documented in this encounterMans[facility] Hospital01-[facility]25 Telephone encounter Note * Telephone Encounter - Talia Ann LPN - 02/16/2024 10:21 AM EST Patients son aware that medication was sent to [facility] in [place]. Son stated he understood that blood work needed drawn in 1 week in [place]. [facility]01-09-2025 Miscellaneous Notes* Telephone Encounter - Talia Ann LPN - 02/16/2024 10:21 AM EST Patients son aware that medication was sent to [facility] in [place]. Son stated he understood that blood work needed drawn in 1 week in [place]. * Telephone Encounter - Paddy Zaidi MD - 02/16/2024 9:55 AM EST Will try warfarin. Start with 2.5 mg [...] 1x per sergio . Paddy Zaidi MD * Telephone Encounter - Corrina Blood - 02/15/2024 3:30 PM EST Hui, Caregiver, is calling Paddy Zaidi MD today with concern regarding Medication Problem. Patient Jose is $300 with the copay and he cannot afford this. They are asking for Warfarin or another medication. Patient has been identified by name and birthdate. Duration of symptoms: N/A Hui Call patient at: [phone] (home) [phone] (cell) Was an appointment scheduled: No Closing statement: Corrina Riggins documented in this encounterMansfield Hospital01-[facility]-2025 Telephone encounter Note * Telephone Encounter - Paddy Zaidi MD - 02/16/2024 9:55 AM EST Will try warfarin. Start with 2.5 mg [...] 1x per sergio . Paddy Zaidi MD [facility]01-08-2025 Telephone encounter Note* Telephone Encounter - Ozzy Riggins Corrina M - 02/15/2024 3:30 PM EST Hui, Caregiver, is calling Paddy Zaidi MD today with concern regarding Medication Problem. Patient Eliquis is $300 with the copay and he cannot afford this. They are asking for Warfarin or another medication. Patient has been identified by name and birthdate. Duration of symptoms: N/A Hui Call patient at: [phone] (home) [phone] (cell) Was an appointment scheduled: No Closing statement: Corrina Trudi Ozzy Riggins [facility] Work Phone: [phone] Telephone encounter Note* Telephone Encounter - Paddy Zaidi MD - 02/14/2024 5:18 PM EST The following approved medication requests have been transmitted electronically. Requested Prescriptions Signed Prescriptions Disp Refills ELIQUIS 5 mg tab(s) 180 tablet 3 Sig: Take 1 tablet by mouth two times a day. Authorizing Provider: PADDY ZAIDI MD [facility]01-07-2025 Miscellaneous Notes* Telephone Encounter - Paddy Zaidi MD - 02/14/2024 5:18 PM EST The following approved medication requests have been transmitted electronically. Requested Prescriptions Signed Prescriptions Disp Refills ELIQUIS 5 mg tab(s) 180 tablet 3 Sig: Take 1 tablet by mouth two times a day. Authorizing Provider: PADDY ZAIDI MD * Telephone Encounter - Varsha Byers - 02/14/2024 4:46 PM EST [facility] is calling regarding the Eliquis and [...] Thank you. Varsha Byers. documented in this encounterMansfield Hospital01-07-2025 Telephone encounter Note * Telephone Encounter - Varsha Byers - 02/14/2024 4:46 PM EST [facility] is calling regarding the Eliquis and [...] found Please advise. Thank you. Varsha Byers. [facility]01-07-2025 Telephone encounter Note* Telephone Encounter - Lacie Muñoz - 02/14/2024 3:59 PM EST 1st attempt to reach for scheduling, left voicemail. Adrian was seen at [facility] care today, and Hever referred him to see Pulmonology. He was unable to stay for scheduling but he and his caregiver said they would like to do all the appointmentsat [place]. Although there are many available times to complete the respiratory tests required for new pulmonology appointments on the same day, there are not any openings where both the respiratory tests and the pulmonology provider appointment are available the same day soon. Lacie Muñoz [facility]01-07-2025 Miscellaneous Notes* Telephone Encounter - Lacie Muñoz - 02/14/2024 3:59 PM EST 1st attempt to reach for scheduling, left voicemail. Adrian was seen at [facility] today, and Hever referred him to see Pulmonology. He was unable to stay for scheduling but he and his caregiver said they would like to do all the appointmentsat [place]. Although there are many available times to complete the respiratory tests required for new pulmonology appointments on the same day, there are not any openings where both the respiratory tests and the pulmonology provider appointment are available the same day soon. Lacie Muñoz documented in this encounterMansfield Hospital01-07-2025 NoteHNO ID: [id number] Author: HEVER MARTÍNEZ APRN.AUTO CAMP ATTENDANT Service: ? Author Type: Nurse Practitioner Type: Progress Notes Filed: 02/14/2024 16:39 Note Text: This note was created using Neuropure. Subjective Arturo Pedersen is a 83 year old male. Patient here with delivery person. Treated for RLL pneumonia at the ER, [...] of AFIB and CAD, never seen a recreation teacher. Uses walker for ambulation, sleeps in the [...] HIP FRACTURE(S) Left 11/2017 hip screw placed [facility] Aspirin, Oxycodone, and Percodan [Oxycodone-Aspirin] [...] type (HCC) Recommend to establish care with bilingual call center representative, continue oxygen. - CONSULT TO PULMONARY MEDICINE 3. Adjustment disorder with mixed anxiety and depressed mood Increase to 40 mg daily. - PARoxetine (PAXIL) 40 mg tablet; Take 1 tablet by mouth once daily. Dispense: 90 tablet; Refill: 1 4. Paroxysmal atrial fibrillation (HCC) Recommend to repeat labs in 1-2 we (more content not included)...[facility]01-07-2025 History of Present illness Narrative* Hever Martínez APRN.AUTO CAMP ATTENDANT - 02/14/2024 2:16 PM EST This note was created using [employer]. Subjective Arturo Pedersen is a 83 year old male. Patient here with delivery person. Treated for RLL pneumonia at the ER, [...] Patient usually on 2L of oxygen day andnight, sometimes bumps it up to 3. History of AFIB and CAD, never seen a recreation teacher. Uses walker for ambulation, sleeps in the [...] HIP FRACTURE(S) Left 11/2017 hip screw placed [facility] Aspirin, Oxycodone, and Percodan [Oxycodone-Aspirin] [...] mouth once daily. (Patient not taking: Reported on02/14/2024) [DISCONTINUED] mirtazapine (REMERON) 30 mg tablet Take [...] type (HCC) Recommend to establish care with bilingual call center representative, continue oxygen. - CONSULT TO PULMONARY MEDICINE [...] HIGH DOSE, TRIVALENT (FLUZONE HIGH-DOSE) Hever Martínez APRN.AUTO CAMP ATTENDANT documented in this encounterMansfield Hospital01-06-2025 Telephone encounter Note * Telephone Encounter - Ge Will LPN - 02/13/2024 11:28 AM EST Received visit summary for SOB from [facility] ed. Placed in provider's inbox for review. Route to MA scanning [facility]01-06-2025 Miscellaneous Notes* Telephone Encounter - Ge Will LPN - 02/13/2024 11:28 AM EST Received visit summary for SOB from [facility] ed. Placed in provider's inbox for review. Route to MA scanning documented in this encounterMansfield Hospital11-25-2024 Telephone encounter Note * Telephone Encounter - Paddy Zaidi MD - 01/02/2024 11:15 AM EST The following approved medication requests have been transmitted electronically. Requested Prescriptions Signed Prescriptions Disp Refills PARoxetine (PAXIL) 20 mg tablet 30 tablet 5 Sig: Take 1 tablet by mouth once daily. Authorizing Provider: PADDY ZAIDI MD [facility]11-25-2024 Miscellaneous Notes* Telephone Encounter - Paddy Zaidi MD - 01/02/2024 11:15 AM EST The following approved medication requests have been transmitted electronically. Requested Prescriptions Signed Prescriptions Disp Refills PARoxetine (PAXIL) 20 mg tablet 30 tablet 5 Sig: Take 1 tablet by mouth once daily. Authorizing Provider: PADDY ZAIDI MD * Telephone Encounter - Chayito Thorne - 12/30/2023 10:37 AM EST Prescription Refill Information The patient has been [...] 30, 2023 10:38 AM documented in this encounterMansfield Hospital11-22-2024 Telephone encounter Note * Telephone Encounter - Chayito Thorne - 12/30/2023 10:37 AM EST Prescription Refill Information The patient has been [...] Chayito Thorne December 30, 2023 10:38 AM [facility]11[facility]13-2024 Telephone encounter Note* Telephone Encounter - Ge Will LPN - 12/21/2023 3:28 PM EST Received annual oxygen rx from [employer]. Placed in provider's inbox for review. Route to [place] fax [facility]11-13-2024 Miscellaneous Notes* Telephone Encounter - Ge Will LPN - 12/21/2023 3:28 PM EST Received annual oxygen rx from [facility]. Placed in provider's inbox for review. Route to [place] fax documented in this encounterMansfield Hospital10-24-2024 Telephone encounter Note * Telephone Encounter - Paddy Zaidi MD - 12/01/2023 2:45 PM EDT The following approved medication requests have been transmitted electronically. Requested Prescriptions Signed Prescriptions Disp Refills PARoxetine (PAXIL) 20 mg tablet 30 tablet 5 Sig: Take 1 tablet by mouth once daily. Authorizing Provider: PADDY ZAIDI MD [facility]10-24-2024 Miscellaneous Notes* Telephone Encounter - Paddy Zaidi MD - 12/01/2023 2:45 PM EDT The following approved medication requests have been transmitted electronically. Requested Prescriptions Signed Prescriptions Disp Refills PARoxetine (PAXIL) 20 mg tablet 30 tablet 5 Sig: Take 1 tablet by mouth once daily. Authorizing Provider: PADDY ZAIDI MD * Telephone Encounter - Varsha Byers - 12/01/2023 9:49 AM EDT Patient is asking for this to be [...] Thank you. Varsha Byers. documented in this encounterMansfield Hospital10-24-2024 Telephone encounter Note * Telephone Encounter - Varsha Byers - 12/01/2023 9:49 AM EDT Patient is asking for this to be [...] found Please advise. Thank you. Varsha Byers. T [facility]10-22-2024 Telephone encounter Note* Telephone Encounter - Talia Ann LPN - 11/29/2023 2:13 PM EDT Prescription Refill Information The patient has been [...] Ann LPN November 29, 2023 2:13 PM T [facility]10-22-2024 Miscellaneous Notes* Telephone Encounter - Talia Ann LPN - 11/29/2023 2:13 PM EDT Prescription Refill Information The patient has been [...] 29, 2023 2:13 PM documented in this encounterMansfield Hospital07-26-2024 History of Present illness Narrative* Sarah Robison RN - 09/02/2023 11:40 AM EDT CC [facility] NURSE - CHART REVIEW Provider [facility] Action 09/22/2022 presented to non [facility] ED following mechanical fall in home. Documentation of encounter indicates no loss of consciousness, not on blood thinning medication. Xray revealed fracture of distalright fibula Pt identified by name and . Reason for Review: Payor request Patient Attributed To: PAOLA Payer: KEILA Chart Review For: Utilization: ED Total Patient High CostTotal Patient High Cost {HIGH COST:818389) Quality measure review Payor request for assistance Action Taken: No action needed Sarah Robison RN September 02, 2023 11:40 AM documented in this encounterMansfield Hospital07-18-2024 History of Present illness Narrative* Corrina Collazo - 08/25/2023 3:58 PM EDT [facility] POPULATION HEALTH NAVIGATION OUTREACH Action/FYI Patient needs scheduled for AMW. [facility] 03-15-2023 missed Patient Identified by Name and : Yes, via phone Reason for Outreach Care Gap or Scheduling Wellness Visits Care Gap Reviewed:: Annual Wellness visit [facility] Outreach Outcome/Action Unable to reach patient: Left message Population Health Navigation Workflow Chart Review Payer: Keila Navigation Signature: Corrina Collazo August 25, 2023 3:58 PM documented in this encounterMans[facility] Hospital06-26-2024 History of Present illness Narrative* Elenita Dey MA - 08/03/2023 1:42 PM EDT POPULATION HEALTH NAVIGATION OUTREACH Action/FYI Contacted patient [...] 03, 2023 1:42 PM documented in this encounterMansfield Hospital06-03-2024 Telephone encounter Note * Telephone Encounter - Isabell Kearsn - 07/11/2023 11:26 AM EDT Adrian is calling Paddy Zaidi MD today with concern regarding Medication Request Disp Refills Start End potassium chloride (K-TAB) 10 mEq tablet 180 tablet 3 05/21/2022 08/19/2022 Sig: Take 2 tablets by mouth every morning. Sent to pharmacy as: potassium chloride (K-TAB) 10 mEq tablet Class: Normal [facility] [place]. No need to call patient if sent to pharmacy. Thank you. Patient has been identified by name and birthdate. Duration of symptoms: N/A Person calling: self Call patient at: on cell [phone] (home) [phone] (cell) Was an appointment scheduled: No Closing statement: Results or non-symptom based questions: Thank you for calling [facility], your call will be returned within the next business day. Isabell Riggins [facility]06-03-2024 Miscellaneous Notes* Telephone Encounter - Isabell Kearns - 07/11/2023 11:26 AM EDT Adrian is calling Paddy Zaidi MD today with concern regarding Medication Request Disp Refills Start End potassium chloride (K-TAB) 10 mEq tablet 180 tablet 3 05/21/2022 08/19/2022 Sig: Take 2 tablets by mouth every morning. Sent to pharmacy as: potassium chloride (K-TAB) 10 mEq tablet Class: Normal [facility] [place]. No need to call patient if sent to pharmacy. Thank you. Patient has been identified by name and birthdate. Duration of symptoms: N/A Person calling: self Call patient at: on cell [phone] (home) [phone] (cell) Was an appointment scheduled: No Closing statement: Results or non-symptom based questions: Thank you for calling [facility], your call will be returned within the next business day. Isabell Riggins documented in this encounterMansfield Hospital06-03-2024 Telephone encounter Note * Telephone Encounter - Isabell Kearns - 07/11/2023 11:20 AM EDT Patient has been identified by name and [...] found Please advise. Thank you. Isabell Riggins. [facility]-03[facility] Miscellaneous Notes* Telephone Encounter - Isabell Kearns - 07/11/2023 11:20 AM EDT Patient has been identified by name and [...] Thank you. Isabell Riggins. documented in this encounterMansfield Hospital05-06-2024 Telephone encounter Note * Telephone Encounter - Ge Will LPN - 06/13/2023 10:34 AM EDT Called and notified pt. Pt indicated understanding. [facility]-06-[facility] Miscellaneous Notes* Telephone Encounter - Ge Will LPN - 06/13/2023 10:34 AM EDT Called and notified pt. Pt indicated understanding. * Telephone Encounter - Paddy Zaidi MD - 06/13/2023 9:46 AM EDT Kidney, liver function and glucose are normal. [...] normal. Paddy Zaidi MD documented in this encounterMansfield Hospital05-06-2024 Telephone encounter Note * Telephone Encounter - Paddy Zaidi MD - 06/13/2023 9:46 AM EDT Kidney, liver function and glucose are normal. [...] Blood count is normal. Paddy Zaidi MD [facility]04-30-[facility] History of Present illness Narrative* Paddy Zaidi MD - 06/07/2023 4:34 PM EDT CHIEF COMPLAINT Patient presents with: Follow Up HISTORY OF PRESENT ILLNESS Arturo Pedersen is a 82 year old male who presents here today for follow up. I last saw this patienton 05/21/2022. Feet - Bothersome - Endorses swelling, [...] 60+ series) Due for Covid-19 Vaccine (3- season) Due for Advance Directive Discussion Labs [...] full and symmetrical. Data Reviewed Latest Ref [facility] 06/06/2023 Protein, Total 6.3 - 8.0 g/dL [...] Scribe Attestation: By signing my name below, IKleber, attest that this documentation has been prepared [...] 15, 2023 9:45 AM documented in this encounterMansfield Hospital04-26-2024 Telephone encounter Note * Telephone Encounter - Natalia Massey RN - 06/03/2023 10:00 AM EDT Called patient. He has an appointment but it is not until mid-June for a wellness visit, but the patient would like to discuss issues such as his anxiety and his oxygen. Scheduled patient for an acutevisit on TuesdayJune 06, and advised it would [...] limit his ability to leave home. Called [facility] medical at [phone]. Patient currently has the full size home [...] to see if he would qualify, with chartnotes and a prescription faxed over. In the meantime if he wants to use the mini tanks while he is waiting to see if he qualifies they would just need an order faxed over. [facility]-26[facility] Miscellaneous Notes* Telephone Encounter - Natalia Massey RN - 06/03/2023 10:00 AM EDT Called patient. He has an appointment but it is not until mid-June for a wellness visit, but the patient would like to discuss issues such as his anxiety and his oxygen. Scheduled patient for an acutevisit on TuesdayJune 06, and advised it would [...] his ability to leave home. Called [facility] at [phone]. Patient currently has the full size home [...] to see if he would qualify, with chartnotes and a prescription faxed over. In the meantime if he wants to use the mini tanks while he is waiting to see if he qualifies they would just need an order faxed over. * Telephone Encounter - Talia Ann LPN - 05/30/2023 4:08 PM EDT LM for patient to have fasting labs drawn. Patient has medicare wellness appt 06/23/2023 * Telephone Encounter - Paddy Zaidi MD - 05/27/2023 4:47 PM EDT Overdue for lab and visit. Order placed [...] For neuropathy Authorizing Provider: PADDY ZAIDI MD * Telephone Encounter - Talia Ann LPN - 05/27/2023 2:49 PM EDT Pharmacy verified in [facility] Patient has been identified by [...] 06/02/2022 134/68 Please advise. Talia Ann LPN * Telephone Encounter - Byers Varsha - 05/27/2023 12:20 PM EDT Please also refill Potassium Chloride (Klor-Con) that [...] Patient aware RX will be sent to [facility] pharmacy. No need to notify patient. Varsha Byers documented [facility]04[facility] Telephone encounter Note * Telephone Encounter - Talia Ann LPN - 05/30/2023 4:08 PM EDT LM for patient to have fasting labs drawn. Patient has medicare wellness appt 06/23/2023 [facility]04-19-[facility] Telephone encounter Note* Telephone Encounter - Paddy Zaidi MD - 05/27/2023 4:47 PM EDT Overdue for lab and visit. Order placed [...] For neuropathy Authorizing Provider: PADDY ZAIDI MD [facility]04-19-2024 Telephone encounter Note* Telephone Encounter - MarissaTalia LPN - 05/27/2023 2:49 PM EDT Pharmacy verified in Epic Patient has been [...] 06/02/2022 134/68 Please advise. Talia Ann LPN [facility]04-19-2024 Telephone encounter Note* Telephone Encounter - Varsha Byers - 05/27/2023 12:20 PM EDT Please also refill Potassium Chloride (Klor-Con) that [...] Patient aware RX will be sent to [facility] pharmacy. No need to notify patient. Varsha Byers [facility]03-08-2024 History of Present illness Narrative* Corrina Barakat MA - 04/15/2023 11:51 AM EST POPULATION HEALTH NAVIGATION OUTREACH Action/FYI [employer] HCCs 2.16.24 Discuss/Due for: Medicare Wellness, MyChart Activation [...] labs: Medicare Annual Wellness Visit 06/23/2023 in [facility] with PADDY ZAIDI - MEDICARE WELLNESS Z00.00, HCC GAP CLOSURE HCC related Navigation Signature: Corrina Barakat MA April 15, 2023 11:52 AM documented in this encounterMansfield Hospital03-01-2024 Miscellaneous Notes* Telephone Encounter - Paddy Zaidi MD - 04/08/2023 4:41 PM EST The following approved medication requests have been transmitted electronically. Requested Prescriptions Signed Prescriptions Disp Refills escitalopram oxalate (LEXAPRO) 10 mg tablet 90 tablet 0 Sig: Take 1 tablet by mouth once daily Authorizing Provider: PADDY ZAIDI MD * Telephone Encounter - Gabrielle Rosenthal MA - 04/08/2023 3:09 PM EST Pharmacy verified in [facility] Patient has been identified by [...] advise. Gabrielle Rosenthal MA documented in this encounterMansfield Hospital02-09-2024 Miscellaneous Notes* Telephone Encounter - Ge Will LPN - 03/18/2023 2:25 PM EST Received visit summary, labs, imaging, EKG for SOB from [facility]. Placed in provider's inbox for review. Route to MA scanning. documented in this encounterMansfield Hospital02-06-2024 Discharge summary Author Parker Metzger [facility] March 15, 2023 3:59pm Note Date/Time March 15, 2023 1 :58pm [facility] Medical Records Department [address] [place] [id number] Emergency Department Summary 03/15/23 MR#: [id number] Acct: [id number] Name: ARTURO PEDERSEN Rep #:[id number] : 1940 82 From: Parker Metzger MD [...] his diarrhea. He denies black stool or maroon- colored stool. PE Risk Factors: Positive for Cancer; Negative for OCP + Smoking + > 35, Prior DVT or PE, Recent immobilization, Recent surgery or Recent travel Prior similar symptoms: Yes (COPD exacerbation) Recent Illness/Hospitalization: No PFSH [facility] Medical History Atherosclerosis of coronary artery of gakona heart without angina pectoris Central sleep apnea [...] oriented x3 and CN's II-XII intact bilaterally [place] Coma Scale: document GCS findings Spontaneous Obeys [...] 80.9 H Lymph % (Auto) 8.8 L [place] % (Auto) 6.8 Eos % (Auto) 2.1 [...] duration 70 ms, QT duration 334 ms. [place] is normal.) Treatment and Re-Evaluation :: Patient [...] HTN (hypertension), Atherosclerosis of coronary artery of gakona heart without angina pectoris, Stage 2 moderate [...] your Primary Care Provider. Call [facility] ([phone]) or report to the closest Emergency Room. Call 911 if necessary. 03/15/23 1559 <Electronically signed by Parker Metzger MD> Cosigner Signature (if applicable): CC: Dr. Shayne Zaidi MD ~ Signed [facility] Work Phone: 1(193) 919-461111-21-2023 Miscellaneous Notes* Telephone Encounter - Ge Will - 12/28/2022 1:00 PM EST Order signed by PCP and faxed. * Telephone Encounter - Ge Will - 12/28/2022 8:14 AM EST Received annual oxygen prescription order form (renewal date 12/08/21) from [employer]. Placed in provider's inbox for review. Route to CT fax [phone] documented in this encounterMansfield Hospital08-17-2023 Miscellaneous Notes* Telephone Encounter - Ge Will - 09/23/2022 8:10 AM EDT Received ED visit summary and xrays for lower extremity injusry from [facility] ED. Placed in provider's inbox for review. Route to MA scanning. documented in this encounterMansfield Hospital08-14-2023 Hospital Discharge instructions Additional Instructions Closed fracture of ankle. Maintain splint. Usual walker do not put weight on your right lower extremity. Take pain medications as prescribed. Continue to ice and elevate for swelling. Call office of Dr. Pozo for appointment to be seen on Tuesday or Tuesday.[facility] Work Phone: 1(454) 494-348107-14-2023 Miscellaneous Notes* Addendum Note - Talia Ann [...] potassium chloride,spironolactone. Please advise documented in this encounterMansfield Hospital05-16-2023 Miscellaneous Notes* Telephone Encounter - Talia Ann LPN - 06/22/2022 9:08 AM EDT LM for patient to call office. * Telephone Encounter - Hever Santiago APRN.CNP - 06/22/2022 8:49 AM EDT Please call patient and remind him to get his repeat chest xray completed in the next week, order placed. Hever Santiago APRN.CNP documented in this encounterMansfield Hospital04-26-2023 History of Present illness Narrative* Hever Santiago APRN.CNP - 06/02/2022 1:02 PM EDT This note was created using Neuropure. Subjective Arturo Pedersen is a 81 year [...] HIP FRACTURE(S) Left 11/2017 hip screw placed [facility] ALLERGIES Aspirin, Oxycodone, and Percodan [Oxycodone-Aspirin] [...] depression/anxiety. Hever Santiago APRN.CNP documented in this encounterMansfield Hospital04-19-2023 Miscellaneous Notes* Telephone Encounter - Violetta Humphrey RN - 05/26/2022 1:28 PM EDT Notified patient-he agrees to plan. Scheduled f/u. Patient verbalizes understanding and has no other questions or concerns at this time. Violetta Humphrey RN Reason for Disposition Health Information question, no triage required and triager able to answer question Protocols used: Information Only Call - No [id number] * Telephone Encounter - Magdy Gloria RN [...] to re-evaluate how he's doing. Hever Santiago APRN.CNP documented in this encounterMansfield Hospital04-15-2023 History of Present illness Narrative* Rocky Combs RT(R) - 05/22/2022 11:00 AM EDT Radiology [...] 22, 2022 11:25 AM documented in this encounterMansfield Hospital04-14-2023 History of Present illness Narrative* Paddy Zaidi MD - 05/21/2022 3:59 PM EDT CHIEF COMPLAINT Patient presents with: Follow Up HISTORY OF PRESENT ILLNESS Arturo Pedersen is a 81 year old male who presents here today for a follow up. I last saw this patient on . Pt is accompanied by his nephew. CAD / Afib Admitted [facility] Cath/ stent placed, no f/u with cardiology. - Pt notes after walking out to car after eating at [employer] restaurant, , Pt feels like he will pass out. - Pt nephew notes he experiences similar episodes when getting out of the car after going to [facility] - Pt checks his blood pressure at home and records good numbers - Pt nephew notes Pt has trouble walking; he has coughing spells - Pt uses two pillows to lay in bed. Cardiac Cath Intervention on 12-16-2021 Cardiac Cath Intervention [facility] [address] [place] [address] Cardiac Cath Intervention MR#: [id number] Acct: [id number] Name: ARTURO PEDERSEN Rep #: [id number] : 1940 81 From: Dallas Muller MD PCP: Dr. Shayne Zaidi MD Status:ADM IN Patient Name: ARTURO PEDERSEN Study Date: 12/16/2021 Performing: Tiago Burden MD Ht: 71 inches 180.34 cm : 1940 Wt: 194.29 lbs 88.13 kg Age: 81 Gender: male BSA: 2.08 PROCEDURE(S) PERFORMED IC12-(87988/C9600)KIRK W/WO PTCA, SINGLE CORONARY ARTERY CLINICAL PROFILE [...] XB3.5 100cm Guide Catheter Grey .014 [employer] [place] Straight 190cm Chadwick Sci EMERGE MR 3.00x08 BALLOON [employer] Sci Synergy MR KIRK 3.50x08 Medtronic NC EUPHORA RX 3.5x08 BALLOON COPD/ JONATHAN? 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 I have reviewed the chart and discharge instructions (if applicable) and agree that the record reflects my personal performance and is accurate and complete. Electronically Signed: Paddy Zaidi MD May 21, 2022 6:20 PM documented in this encounterMansfield Hospital04-07-2023 Miscellaneous Notes* Addendum Note - Hever Franklin Ma - 05/14/2022 3:37 PM EDTAddended by: HEVER FRANKLIN MA on: 05/14/2022 03:37 PM Modules accepted: Orders * Telephone Encounter - Hever Franklin Ma - 05/14/2022 3:36 PM EDT Last appointment: 12/23/21 Next appointment: 05/23/22 Pharmacy verified in [facility]. Refill(s) requested: Requested Prescriptions Pending [...] Order(s) pended. Please advise. Hever Franklin Ma, CMA * Telephone Encounter - Lacie Muñoz - 05/14/2022 3:24 PM EDT Adrian came by and needs refills of all of his medications sent to [facility] pharmacy in [place]. Can someone assist him with his RX refills? He is totally out of gabapentin but also requesting atorvastatin, spironolactone, escitalopram oxalate, atenolol, levothyroxine, potassium chloride. I have scheduled Adrian for a routine check up since he has not been seen since last fall. 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 Could someone advise Adrian when and if RX refills havebeen sent? Thank you, Lacie Muñoz documented in this [facility]11-21-2022 Miscellaneous Notes* Telephone Encounter - Ge Will - 12/28/2021 2:02 PM EST Received visit summary for sleep apnea and COPD from [facility]. Placed in provider's inbox for review. Route to MA scanning. documented in this [facility]11-18-2022 Miscellaneous Notes* Telephone Encounter - Talia Ann LPN - 12/25/2021 11:42 AM EST Received 12/25/2021 from [facility]. Placed in provider's inbox for review. 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 Placed in provider's inbox for review. Route to MA scanning. documented in this [facility]11-14-2022 Miscellaneous Notes* Telephone Encounter - Talia Ann LPN - 12/21/2021 11:00 AM EST Received 12/18/2021 from [facility]. Placed in provider's inbox for review. Route to MA for scanning. documented in this encounterMansfield Hospital11-14-2022 Miscellaneous Notes* Telephone Encounter - Talia Ann LPN - 12/21/2021 10:57 AM EST Received 12/21/2021 from [facility]. Placed in provider's inbox for review. Route to MA for scanning documented in this encounterMansfield Hospital11-10-2022 Miscellaneous Notes* Telephone Encounter - Ge Will - 12/17/2021 3:17 PM EST Received liver us for elevated lft's from [facility]. Placed in provider's inbox for review. Route to MA scanning. documented in this encounterMansfield Hospital11-09-2022 Miscellaneous Notes* Telephone Encounter - Ge Will - 12/16/2021 3:08 PM EST Received cardiac cath intervention/diagnostic procedure note and EKG's 12/14, 12/15, 12/16 from [facility]. Placed in provider's inbox for review. Route to MA scanning. documented in this encounterMansfield Hospital11-08-2022 Miscellaneous Notes* Telephone Encounter - Ge Will - 12/15/2021 8:54 AM EST Received ED summary, labs, imaging for SOB and chest pain from [facility]. Placed in provider's inbox for review. Route to MA scanning. documented in this encounterMansfield Hospital10-10-2022 Miscellaneous Notes* Telephone Encounter - Paddy [...] 11/16/2021 10:28 AM EDT Pharmacy verified in [facility] Patient has been identified by [...] advise. Talia Ann LPN documented in this encounterMansfield Hospital08-09-2022 Miscellaneous Notes* Telephone Encounter - Jessi Sotelo - 09/15/2021 9:48 AM EDT 1st attempt. Called patient and left message on VM. * Telephone Encounter - Ge Will - 09/14/2021 4:21 PM EDT Called pt and informed of lab results. Pt is agreeable with scheduling please assist. * Telephone Encounter - Hever Santiago APRN.CNP - 09/14/2021 3:26 PM EDT Please let patient know that his kidney function is stable. Potassium is normal, sodium was slightly low and will continue to monitor this. Schedule an appointment in 3 months to recheck. Hever Santiago APRN.CNP documented in this encounterMansfield Hospital08-04-2022 Miscellaneous Notes* Telephone Encounter - Ge [...] 06/22/21 Next appointment: n/a Pharmacy verified in [facility]. Refill(s) requested: Pending Prescriptions Disp [...] Order(s) pended. Please advise. Timothy Maradiaga Ma, COMPRESSION MOLDING MACHINE TENDER documented in this encounterMansfield Hospital05-16-2022 History of Present illness Narrative* Hever Santiago APRN.AUTO CAMP ATTENDANT - 06/22/2021 1:03 PM EDT This note was created using Neuropure. Subjective Arturo Pedersen is a 80 year [...] 1 Hever Santiago APRN.CNP documented in this encounterMansfield Hospital05-04-2022 Miscellaneous Notes* Telephone Encounter - Jessi Sotelo - 06/10/2021 5:20 PM EDT Called patient and got appointment scheduled * Telephone Encounter - Hever Santiago APRN.CNP - 06/10/2021 10:27 AM EDT Patient is due for a 6 month chronic care visit, please schedule with either provider. Hever Santiago APRN.CNP * Telephone Encounter - Corrina Brush Ozzy Pss - 06/09/2021 3:55 PM EDT Pharmacy verified in [facility] Patient has been identified by [...] advise. Corrina Preciado Pss documented in this encounterMansfield Hospital04-14-2022 Miscellaneous Notes* Telephone Encounter - Paddy [...] 12-17-20 Next appointment: na Pharmacy verified in [facility]. Refill(s) requested: Pending Prescriptions Disp Refills ESCITALOPRAM 20 MG TABLET 30 tablet 0 Sig: Take 1 tablet by mouth once daily KARLA: Yes Order(s) pended. Please advise. Haily Avila MA, [facility]* Diagnosis Essential hypertension Unspecified essential hypertension Hypokalemia Hypopotassemia documented in this encounter [facility] note* Diagnosis Essential hypertension- Primary Unspecified essential hypertension Pure hypercholesterolemia Acquired hypothyroidism Unspecified hypothyroidism Adjustment disorder with mixed anxiety and depressed mood Peripheral polyneuropathy Unspecified hereditary and idiopathic peripheral neuropathy documented in this encounter [facility] note* Diagnosis Essential hypertension Unspecified essential hypertension Hypokalemia Hypopotassemia documented in this encounter [facility] note* Diagnosis Peripheral polyneuropathy Unspecified hereditary and idiopathic peripheral neuropathy documented in this encounter [facility] note* Diagnosis Onset Date Resolution Status Non-STEMI (non-ST elevated myocardial infarction) acute Paroxysmal atrial fibrillation with RVR acute Pneumococcal pneumonia acute Acute exacerbation of COPD with asthma [facility] Work Phone: evaluation note* Diagnosis Onset Date Resolution Status Non-STEMI (non-ST elevated myocardial infarction) acute Paroxysmal atrial fibrillation with RVR acute Pneumococcal pneumonia acute Acute exacerbation of COPD with asthma chronic HTN (hypertension) [facility] Work Phone: Evaluation note* Diagnosis COPD with exacerbation (HCC)- Primary Obstructive chronic bronchitis with exacerbation Hypertensive urgency Unspecified essential hypertension 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) S/P angioplasty with stent Other postprocedural status 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) Pneumonia of left upper lobe due to infectious organism Essential hypertension Unspecified essential hypertension Obstructive sleep apnea on CPAP Obstructive sleep apnea (adult) (pediatric) Hospital discharge follow-up Other follow-up examination documented in this encounter [facility] note* Diagnosis Onset Date Resolution Status Non-STEMI (non-ST elevated myocardial infarction) acute Paroxysmal atrial fibrillation with RVR acute Acute exacerbation of COPD with asthma chronic HTN (hypertension) chronic 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 [facility] Work Phone: evaluation note* Diagnosis Medication management Encounter for long-term (current) use of other medications Acquired hypothyroidism Unspecified hypothyroidism documented in this encounter [facility] note* Diagnosis Mixed hyperlipidemia Peripheral polyneuropathy Unspecified hereditary and idiopathic peripheral neuropathy Essential hypertension Unspecified essential hypertension Hypothyroidism, unspecified type Hypokalemia Hypopotassemia [facility]* Diagnosis 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)- Primary Essential hypertension Unspecified essential hypertension Hypokalemia Hypopotassemia Peripheral polyneuropathy Unspecified hereditary and idiopathic peripheral neuropathy Acquired hypothyroidism Unspecified hypothyroidism Anxiety Anxiety state, unspecified Paroxysmal atrial fibrillation (HCC) Atrial fibrillation SOB (shortness of breath) Shortness of breath Mixed hyperlipidemia Hypothyroidism, unspecified type Chronic obstructive pulmonary disease, unspecified COPD type (HCC) documented in this encounter [facility]* Diagnosis Pneumonia of right middle lobe due to infectious organism- Primary documented in [facility] encounter [facility]* Diagnosis Pneumonia of right middle lobe due to infectious organism- Primary ED (erectile dysfunction) of organic origin Impotence of organic origin Adjustment disorder with mixed anxiety and depressed mood documented in this encounter [facility]* Diagnosis Hypothyroidism, unspecified type Mixed hyperlipidemia documented in this encounter [facility] noteNo assessment information availableWCity Hospital Work Phone: Evaluation note* Diagnosis Hypothyroidism, unspecified type Essential hypertension Unspecified essential hypertension Mixed hyperlipidemia Peripheral polyneuropathy Unspecified hereditary and idiopathic peripheral neuropathy documented in this encounter [facility]* Diagnosis 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 Hypothyroidism, unspecified type Essential hypertension Unspecified essential hypertension Mixed hyperlipidemia Peripheral polyneuropathy Unspecified hereditary and idiopathic peripheral neuropathy SOB (shortness of breath) Shortness of breath Hypoxemia documented in this encounter [facility]* Diagnosis Essential hypertension Unspecified essential hypertension Hypothyroidism, unspecified type documented in this encounter [facility]* Diagnosis Hypokalemia Hypopotassemia documented [facility]* Diagnosis 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) Paroxysmal atrial fibrillation (HCC) Atrial fibrillation SOB (shortness of breath) Shortness of breath [facility] encounter [facility]* Diagnosis Pneumonia of right lower lobe due to infectious organism- Primary Chronic obstructive pulmonary disease, unspecified COPD type (HCC) Adjustment disorder with mixed anxiety and depressed mood Paroxysmal atrial fibrillation (HCC) Atrial fibrillation Encounter for immunization Need for other specified prophylactic vaccination against single bacterial disease documented [facility] encounter [facility]* Diagnosis Chronic atrial fibrillation (HCC)- Primary Atrial fibrillation nursing home current use of anticoagulant therapy Long-term (current) use of anticoagulants documented in this encounter [facility]* Diagnosis Chronic obstructive pulmonary disease, unspecified COPD type (HCC) documented in this encounter [facility]* Diagnosis Chronic obstructive pulmonary disease, unspecified COPD type (HCC) [facility]* Diagnosis Chronic obstructive pulmonary disease, unspecified COPD type (HCC) Chronic obstructive pulmonary disease, unspecified COPD type (HCC) Stage 3 severe COPD by GOLD classification ([facility])- Primary Pneumonia of left lower lobe due to infectious organism Lung nodules Other nonspecific abnormal finding of lung field Former smoker Personal history of tobacco use, presenting hazards to health Chronic hypoxemic respiratory failure (HCC) Chronic respiratory failure documented in this encounter [facility]* Diagnosis Chronic obstructive pulmonary disease, unspecified COPD type (HCC)- Primary documented in this encounter [facility] note* Diagnosis Stage 3 severe COPD by GOLD classification ([facility])- Primary Hypoxia Hypoxemia Pneumonia of left lower lobe due to infectious organism Lung nodules Other nonspecific abnormal finding of lung field documented in this encounter [facility]* Diagnosis Pneumonia of left lower lobe due to infectious organism Lung nodules Other nonspecific abnormal finding of lung field [facility] Diagnosis Mixed hyperlipidemia Essential hypertension Unspecified essential hypertension documented in this encounter [facility] note* Diagnosis Hypothyroidism, unspecified type Peripheral polyneuropathy Unspecified hereditary and idiopathic peripheral neuropathy [facility] Diagnosis Oxygen dependent- Primary Dependence on supplemental oxygen Atherosclerotic cardiovascular disease Anxiety attack Panic 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 Leg swelling Swelling of limb Adjustment disorder with mixed anxiety and depressed mood PAD (peripheral artery disease) Peripheral vascular disease, unspecified Acquired hypothyroidism Unspecified hypothyroidism Pure hypercholesterolemia Idiopathic peripheral neuropathy Unspecified hereditary and idiopathic peripheral neuropathy Atherosclerosis of [place] coronary artery of [place] heart without angina pectoris documented in this encounter [facility] Diagnosis Adjustment disorder with mixed anxiety and depressed mood Hypokalemia Hypopotassemia documented in this encounter [facility] note* Diagnosis Hypokalemia Hypopotassemia documented in this [facility] Diagnosis Hypothyroidism, unspecified type documented in this encounter [facility] for referral (narrative)* Outpatient Procedure (Routine) - Closed Specialty Diagnoses / Procedures [facility] [place] Diagnoses 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) Paroxysmal atrial fibrillation (HCC) Procedures ECG COMPLETE ECG ROUTINE ECG W/LEAST 12 LDS W/I&R Paddy Zaidi MD [address] [place] [address] Heart [facility] Vascular [place] [address] [place] [address] Referral ID Status Reason Start Date Expiration Date V isits Requested Visits Authorized [id number] Closed Auto-Generate d Referral 05/21/2022 05/21/2023 1 1 [facility] for referral (narrative)* Outpatient Procedure (Routine) - Authorized Specialty Diagnoses / Procedures Referred By Contac t Referred To [facility] RESPIRATORY [place] Diagnoses 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) Hypoxemia Procedures SIX MINUTE WALK CARDIOPULMONARY EXERCISE STRESS Paddy Zaidi MD [address] [facility] [facility] [place] [id number] [address] [address] Referral ID Status Reason Start Date Expiration Date Visits Requested Visits Authorized [id number] Authorized Auto-Generat ed Referral 06/07/2023 07/06/2024 1 1 T [facility] for referral (narrative)* Outpatient Procedure (Routine) - Authorized Specialty Diagnoses / Procedures Referred By Contac t Referred To [facility] Diagnoses Chronic obstructive pulmonary disease, unspecified COPD type (HCC) Procedures OXIMETRY WITH AMBULATION NONINVASIVE EAR/PULSE OXIMETRY MULTIPLE Raina Cruz MD [address] [place] [address] [address] Referral ID Status Reason Start Date Expiration Date Visits Requested Visits Authorized [id number] Authorized Auto-Generat ed Referral 03/05/2024 04/04/2025 1 1 * MRI/CT (Routine) - Authorized Specialty Diagnoses / Procedures Referred By Jovan t Referred To Contact CT IMAGING Diagnoses Pneumonia of left lower lobe due to infectious organism Lung nodules Procedures CT CHEST WO IVCON DIAGNOSTIC COMPUTED TOMOGRAPHY THORAX W/O CNTRST Raina Huynh MD [address] [place] [address] Ct Imaging [id number] Referral ID Status Reason Start Date Expiration Date Visits Requested Visits Authorized [id number] Authorized Auto-Generat ed Referral 03/05/2024 04/04/2025 1 1 * Outpatient Procedure (Routine) - Closed Specialty Diagnoses / Procedures Referred By Jovan Referred To Contact [facility] Diagnoses Chronic obstructive pulmonary disease, unspecified COPD type (HCC) Procedures LUNG DIFFUSION CAPACITY (DLCO) DIFFUSING CAPACITY Raina Huynh MD [address] [place] [address] Respiratory [place] [phone] Referral ID Status Reason Start Date Expiration Date V isits Requested Visits Authorized [id number] Closed Auto-Generate d Referral 03/05/2024 04/04/2025 1 1 * Outpatient Procedure (Routine) - Closed Specialty Diagnoses / Procedures [facility] Diagnoses Chronic obstructive pulmonary disease, unspecified COPD type (HCC) Procedures SPIROMETRY WITH DILATOR IF OBSTRUCTED BRNCDILAT RSPSE SPMTRY PRE&POST-BRNCDILAT ADMN Raina Huynh MD [address] [place] [address] Respiratory [place] [phone] Referral ID Status Reason Start Date Expiration Date V isits Requested Visits Authorized [id number] Closed Auto-Generate d Referral 03/05/2024 04/04/2025 1 1 [facility] Summary Purpose Family History No Family History Records Found Relationship Condition Age at Onset Recorded Date/T tip Unknown Family History?- Unknown July 26, 2019 5:23am Family History?Cancer Unknown July 082019 5:23am Relationship Condition Age at Onset Recorded Date/T tip Unknown Family History?- Unknown July 26, 2019 6:23am Family History?Cancer Unknown July 082019 6:23am Advance Directives No Advanced Directives Records Found Advance Directive Response Recorded Date/ Time Living Will No December 14 5:17pm Power of Drug Inspector No December 14, 2021 5:17pm Advance Directive Response Recorded Date/ Time Living Will No September 22 7:03pm Power of Drug Inspector Yes September 22 7:03pm Name of Medical Power of Drug Inspector GILA PEDERSEN September 22, 2022 7:03pm Advance Directive Response Recorded Date/ Time Living Will No March 15 2:08pm Power of Drug Inspector Yes March 15, 2023 2:08pm Name of Medical Power of Drug Inspector Gila March 15, 2023 2:08pm Advance Directive Response Recorded Date/ Time Do you have a Healthcare Power of Drug Inspector? No September 10, 2024 12:54am Chief Complaint and Reason for Visit Chief [...] Chief Complaint Leg pain Chief Complaint SOB Chief Complaint Admit Date PNA, AE CHF, RESPIRATORY INSUFFICIENCY, ANXIETY September 10, 2024 1:26am PNA, AE CHF, RESPIRATORY INSUFFICIENCY, ANXIETY September 10, 2024 7:51am PNA, AE CHF, RESPIRATORY INSUFFICIENCY, ANXIETY September 11, 2024 7:41am PNA, AE CHF, RESPIRATORY INSUFFICIENCY, ANXIETY September 11, 2024 4:16pm Reason for Visit Admit Date Acute exacerbation of chronic heart fail ure September 10, 2024 1:26am Anxiety disorder with panic attacks Augu 2024 1:26am Aspiration pneumonia September 10, 2024 1: 26am 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 September 10, 2024 1:26am Chest pain September 10, 2024 1:2 6am Congestive heart failure September 10 1:26am Generalized weakness September 10, 2024 1: 26am History of coronary artery stent placeme nt September 10, 2024 1:26am Hyperlipidemia September 10, 2024 1:2 6am Overweight (BMI 25.0-29.9) September 10, 025 1:26am Paroxysmal atrial fibrillation with RVR September 10, 2024 1:26am Respiratory insufficiency September 10 1:26am Subtherapeutic anticoagulation September 1:26am Tinea cruris September 10, 2024 1:2 6am COPD with acute exacerbation September 10, 2024 1:26am HTN (hypertension) September 10, 2024 1:2 6am Reason for Referral Specialty Diagnoses / Procedures Referred By Jovan milian Referred To Contact Cardiology Diagnoses Paroxysmal atrial fibrillation (HCC) Procedures CONSULT TO CARDIOLOGY OFFICE/OUTPATIENT [facility] 60 MINUTES Hever Martínez, CASK[employer] LINER.AUT[employer] CAMP ATTENDANT [address] [place] [address] Referral ID Status Reason Start Date Expiration Date Visits Requested Visits Authorized [id number] Authorized PCP Requested Referral 02/14/2024 02/13/2025 1 1 Additional Source Comments (unrecognized sect ion and content) No Status Records FoundNo Status Records FoundNo Status Records FoundNo Status Records Found INFORMATION SOURCE (unrecogn ized section and content) DATE CREATED AUTHOR 06/30/2018 [facility] DATE CREATED AUTHOR AUTHOR'S ORGANIZ ATION 09/12/[address] [facility] DATE CREATED AUTHOR AUTHOR'S ORGANIZ ATION 09/13/2024 [facility] DATE CREATED AUTHOR AUTHOR'S ORGANIZ ATION 09/15/2024 [facility] Source Comments (unrecognize d section and content) In the event this informatio n is protected by the Federal Confidentiality of Alcohol and Drug Abuse Patient Records regulations: The Federal rules restrict any use of the information to criminally investigate or prosecute any alcohol or drug abuse patient.[facility] event this information is protected by the Federal Confidentiality of Alcohol and Drug Abuse Patient Records regulations: The Federal rules restrict any use of the information to criminally investigate or prosecute any alcohol or drug abuse patient.[facility] the event this information is protected by the Federal Confidentiality of Alcohol and Drug Abuse Patient Records regulations: The Federal rules restrict any use of the information to criminally investigate or prosecute any alcohol or drug abuse patient.[facility] the event this information is protected by the Federal Confidentiality of Alcohol and Drug Abuse Patient Records regulations: The Federal rules restrict any use of the information to criminally investigate or prosecute any alcohol or drug abuse patient.[facility] the event this information is protected by the Federal Confidentiality of Alcohol and Drug Abuse Patient Records regulations: The Federal rules restrict any use of the information to criminally investigate or prosecute any alcohol or drug abuse patient.[facility] the event this information is protected by the Federal Confidentiality of Alcohol and Drug Abuse Patient Records regulations: The Federal rules restrict any use of the information to criminally investigate or prosecute any alcohol or drug abuse patient.[facility] the event this information is protected by the Federal Confidentiality of Alcohol and Drug Abuse Patient Records regulations: The Federal rules restrict any use of the information to criminally investigate or prosecute any alcohol or drug abuse patient.[facility] the event this information is protected by the Federal Confidentiality of Alcohol and Drug Abuse Patient Records regulations: The Federal rules restrict any use of the information to criminally investigate or prosecute any alcohol or drug abuse patient.[facility] the event this information is protected by the Federal Confidentiality of Alcohol and Drug Abuse Patient Records regulations: The Federal rules restrict any use of the information to criminally investigate or prosecute any alcohol or drug abuse patient.[facility]In the event this information is protected by the Federal Confidentiality of Alcohol and Drug Abuse Patient Records regulations: The Federal rules restrict any use of the information to criminally investigate or prosecute any alcohol or drug abuse patient.[facility] HospitalIn the event this information is protected by the Federal Confidentiality of Alcohol and Drug Abuse Patient Records regulations: The Federal rules restrict any use of the information to criminally investigate or prosecute any alcohol or drug abuse patient.[facility] HospitalIn the event this information is protected by the Federal Confidentiality of Alcohol and Drug Abuse Patient Records regulations: The Federal rules restrict any use of the information to criminally investigate or prosecute any alcohol or drug abuse patient.[facility]In the event this information is protected by the Federal Confidentiality of Alcohol and Drug Abuse Patient Records regulations: The Federal rules restrict any use of the information to criminally investigate or prosecute any alcohol or drug abuse patient.[facility]In the event this information is protected by the Federal Confidentiality of Alcohol and Drug Abuse Patient Records regulations: The Federal rules restrict any use of the information to criminally investigate or prosecute any alcohol or drug abuse patient.[facility] HospitalIn the event this information is protected by the Federal Confidentiality of Alcohol and Drug Abuse Patient Records regulations: The Federal rules restrict any use of the information to criminally investigate or prosecute any alcohol or drug abuse patient.[facility]In the event this information is protected by the Federal Confidentiality of Alcohol and Drug Abuse Patient Records regulations: The Federal rules restrict any use of the information to criminally investigate or prosecute any alcohol or drug abuse patient.[facility] HospitalIn the event this information is protected by the Federal Confidentiality of Alcohol and Drug Abuse Patient Records regulations: The Federal rules restrict any use of the information to criminally investigate or prosecute any alcohol or drug abuse patient.[facility] HospitalIn the event this information is protected by the Federal Confidentiality of Alcohol and Drug Abuse Patient Records regulations: The Federal rules restrict any use of the information to criminally investigate or prosecute any alcohol or drug abuse patient.[facility] HospitalIn the event this information is protected by the Federal Confidentiality of Alcohol and Drug Abuse Patient Records regulations: The Federal rules restrict any use of the information to criminally investigate or prosecute any alcohol or drug abuse patient.[facility] HospitalIn the event this information is protected by the Federal Confidentiality of Alcohol and Drug Abuse Patient Records regulations: The Federal rules restrict any use of the information to criminally investigate or prosecute any alcohol or drug abuse patient.[facility] HospitalIn the event this information is protected by the Federal Confidentiality of Alcohol and Drug Abuse Patient Records regulations: The Federal rules restrict any use of the information to criminally investigate or prosecute any alcohol or drug abuse patient.[facility] HospitalIn the event this information is protected by the Federal Confidentiality of Alcohol and Drug Abuse Patient Records regulations: The Federal rules restrict any use of the information to criminally investigate or prosecute any alcohol or drug abuse patient.[facility] HospitalIn the event this information is protected by the Federal Confidentiality of Alcohol and Drug Abuse Patient Records regulations: The Federal rules restrict any use of the information to criminally investigate or prosecute any alcohol or drug abuse patient.[facility] HospitalIn the event this information is protected by the Federal Confidentiality of Alcohol and Drug Abuse Patient Records regulations: The Federal rules restrict any use of the information to criminally investigate or prosecute any alcohol or drug abuse patient.[facility] HospitalIn the event this information is protected by the Federal Confidentiality of Alcohol and Drug Abuse Patient Records regulations: The Federal rules restrict any use of the information to criminally investigate or prosecute any alcohol or drug abuse patient.[facility] HospitalIn the event this information is protected by the Federal Confidentiality of Alcohol and Drug Abuse Patient Records regulations: The Federal rules restrict any use of the information to criminally investigate or prosecute any alcohol or drug abuse patient.[facility] HospitalIn the event this information is protected by the Federal Confidentiality of Alcohol and Drug Abuse Patient Records regulations: The Federal rules restrict any use of the information to criminally investigate or prosecute any alcohol or drug abuse patient.[facility] HospitalIn the event this information is protected by the Federal Confidentiality of Alcohol and Drug Abuse Patient Records regulations: The Federal rules restrict any use of the information to criminally investigate or prosecute any alcohol or drug abuse patient.[facility] HospitalIn the event this information is protected by the Federal Confidentiality of Alcohol and Drug Abuse Patient Records regulations: The Federal rules restrict any use of the information to criminally investigate or prosecute any alcohol or drug abuse patient.[facility] HospitalIn the event this information is protected by the Federal Confidentiality of Alcohol and Drug Abuse Patient Records regulations: The Federal rules restrict any use of the information to criminally investigate or prosecute any alcohol or drug abuse patient.[facility] HospitalIn the event this information is protected by the Federal Confidentiality of Alcohol and Drug Abuse Patient Records regulations: The Federal rules restrict any use of the information to criminally investigate or prosecute any alcohol or drug abuse patient.[facility] HospitalIn the event this information is protected by the Federal Confidentiality of Alcohol and Drug Abuse Patient Records regulations: The Federal rules restrict any use of the information to criminally investigate or prosecute any alcohol or drug abuse patient.[facility] HospitalIn the event this information is protected by the Federal Confidentiality of Alcohol and Drug Abuse Patient Records regulations: The Federal rules restrict any use of the information to criminally investigate or prosecute any alcohol or drug abuse patient.[facility] HospitalIn the event this information is protected by the Federal Confidentiality of Alcohol and Drug Abuse Patient Records regulations: The Federal rules restrict any use of the information to criminally investigate or prosecute any alcohol or drug abuse patient.[facility] HospitalIn the event this information is protected by the Federal Confidentiality of Alcohol and Drug Abuse Patient Records regulations: The Federal rules restrict any use of the information to criminally investigate or prosecute any alcohol or drug abuse patient.[facility] HospitalIn the event this information is protected by the Federal Confidentiality of Alcohol and Drug Abuse Patient Records regulations: The Federal rules restrict any use of the information to criminally investigate or prosecute any alcohol or drug abuse patient.[facility] HospitalIn the event this information is protected by the Federal Confidentiality of Alcohol and Drug Abuse Patient Records regulations: The Federal rules restrict any use of the information to criminally investigate or prosecute any alcohol or drug abuse patient.[facility] HospitalIn the event this information is protected by the Federal Confidentiality of Alcohol and Drug Abuse Patient Records regulations: The Federal rules restrict any use of the information to criminally investigate or prosecute any alcohol or drug abuse patient.[facility] HospitalIn the event this information is protected by the Federal Confidentiality of Alcohol and Drug Abuse Patient Records regulations: The Federal rules restrict any use of the information to criminally investigate or prosecute any alcohol or drug abuse patient.[facility] HospitalIn the event this information is protected by the Federal Confidentiality of Alcohol and Drug Abuse Patient Records regulations: The Federal rules restrict any use of the information to criminally investigate or prosecute any alcohol or drug abuse patient.[facility] HospitalIn the event this information is protected by the Federal Confidentiality of Alcohol and Drug Abuse Patient Records regulations: The Federal rules restrict any use of the information to criminally investigate or prosecute any alcohol or drug abuse patient.[facility] HospitalIn the event this information is protected by the Federal Confidentiality of Alcohol and Drug Abuse Patient Records regulations: The Federal rules restrict any use of the information to criminally investigate or prosecute any alcohol or drug abuse patient.[facility] HospitalIn the event this information is protected by the Federal Confidentiality of Alcohol and Drug Abuse Patient Records regulations: The Federal rules restrict any use of the information to criminally investigate or prosecute any alcohol or drug abuse patient.[facility] HospitalIn the event this information is protected by the Federal Confidentiality of Alcohol and Drug Abuse Patient Records regulations: The Federal rules restrict any use of the information to criminally investigate or prosecute any alcohol or drug abuse patient.[facility] HospitalIn the event this information is protected by the Federal Confidentiality of Alcohol and Drug Abuse Patient Records regulations: The Federal rules restrict any use of the information to criminally investigate or prosecute any alcohol or drug abuse patient.[facility] HospitalIn the event this information is protected by the Federal Confidentiality of Alcohol and Drug Abuse Patient Records regulations: The Federal rules restrict any use of the information to criminally investigate or prosecute any alcohol or drug abuse patient.[facility] HospitalIn the event this information is protected by the Federal Confidentiality of Alcohol and Drug Abuse Patient Records regulations: The Federal rules restrict any use of the information to criminally investigate or prosecute any alcohol or drug abuse patient.[facility] HospitalIn the event this information is protected by the Federal Confidentiality of Alcohol and Drug Abuse Patient Records regulations: The Federal rules restrict any use of the information to criminally investigate or prosecute any alcohol or drug abuse patient.[facility] HospitalIn the event this information is protected by the Federal Confidentiality of Alcohol and Drug Abuse Patient Records regulations: The Federal rules restrict any use of the information to criminally investigate or prosecute any alcohol or drug abuse patient.[facility] HospitalIn the event this information is protected by the Federal Confidentiality of Alcohol and Drug Abuse Patient Records regulations: The Federal rules restrict any use of the information to criminally investigate or prosecute any alcohol or drug abuse patient.[facility] HospitalIn the event this information is protected by the Federal Confidentiality of Alcohol and Drug Abuse Patient Records regulations: The Federal rules restrict any use of the information to criminally investigate or prosecute any alcohol or drug abuse patient.[facility] HospitalIn the event this information is protected by the Federal Confidentiality of Alcohol and Drug Abuse Patient Records regulations: The Federal rules restrict any use of the information to criminally investigate or prosecute any alcohol or drug abuse patient.[facility] HospitalIn the event this information is protected by the Federal Confidentiality of Alcohol and Drug Abuse Patient Records regulations: The Federal rules restrict any use of the information to criminally investigate or prosecute any alcohol or drug abuse patient.[facility] HospitalIn the event this information is protected by the Federal Confidentiality of Alcohol and Drug Abuse Patient Records regulations: The Federal rules restrict any use of the information to criminally investigate or prosecute any alcohol or drug abuse patient.[facility] HospitalIn the event this information is protected by the Federal Confidentiality of Alcohol and Drug Abuse Patient Records regulations: The Federal rules restrict any use of the information to criminally investigate or prosecute any alcohol or drug abuse patient.[facility] HospitalIn the event this information is protected by the Federal Confidentiality of Alcohol and Drug Abuse Patient Records regulations: The Federal rules restrict any use of the information to criminally investigate or prosecute any alcohol or drug abuse patient.[facility] HospitalIn the event this information is protected by the Federal Confidentiality of Alcohol and Drug Abuse Patient Records regulations: The Federal rules restrict any use of the information to criminally investigate or prosecute any alcohol or drug abuse patient.[facility] HospitalIn the event this information is protected by the Federal Confidentiality of Alcohol and Drug Abuse Patient Records regulations: The Federal rules restrict any use of the information to criminally investigate or prosecute any alcohol or drug abuse patient.[facility] HospitalIn the event this information is protected by the Federal Confidentiality of Alcohol and Drug Abuse Patient Records regulations: The Federal rules restrict any use of the information to criminally investigate or prosecute any alcohol or drug abuse patient.[facility] HospitalIn the event this information is protected by the Federal Confidentiality of Alcohol and Drug Abuse Patient Records regulations: The Federal rules restrict any use of the information to criminally investigate or prosecute any alcohol or drug abuse patient.[facility] HospitalIn the event this information is protected by the Federal Confidentiality of Alcohol and Drug Abuse Patient Records regulations: The Federal rules restrict any use of the information to criminally investigate or prosecute any alcohol or drug abuse patient.[facility] HospitalIn the event this information is protected by the Federal Confidentiality of Alcohol and Drug Abuse Patient Records regulations: The Federal rules restrict any use of the information to criminally investigate or prosecute any alcohol or drug abuse patient.[facility] HospitalIn the event this information is protected by the Federal Confidentiality of Alcohol and Drug Abuse Patient Records regulations: The Federal rules restrict any use of the information to criminally investigate or prosecute any alcohol or drug abuse patient.[facility] HospitalIn the event this information is protected by the Federal Confidentiality of Alcohol and Drug Abuse Patient Records regulations: The Federal rules restrict any use of the information to criminally investigate or prosecute any alcohol or drug abuse patient.[facility] HospitalIn the event this information is protected by the Federal Confidentiality of Alcohol and Drug Abuse Patient Records regulations: The Federal rules restrict any use of the information to criminally investigate or prosecute any alcohol or drug abuse patient.[facility] HospitalIn the event this information is protected by the Federal Confidentiality of Alcohol and Drug Abuse Patient Records regulations: The Federal rules restrict any use of the information to criminally investigate or prosecute any alcohol or drug abuse patient.[facility] HospitalIn the event this information is protected by the Federal Confidentiality of Alcohol and Drug Abuse Patient Records regulations: The Federal rules restrict any use of the information to criminally investigate or prosecute any alcohol or drug abuse patient.[facility] HospitalIn the event this information is protected by the Federal Confidentiality of Alcohol and Drug Abuse Patient Records regulations: The Federal rules restrict any use of the information to criminally investigate or prosecute any alcohol or drug abuse patient.[facility] HospitalIn the event this information is protected by the Federal Confidentiality of Alcohol and Drug Abuse Patient Records regulations: The Federal rules restrict any use of the information to criminally investigate or prosecute any alcohol or drug abuse patient.[facility] HospitalIn the event this information is protected by the Federal Confidentiality of Alcohol and Drug Abuse Patient Records regulations: The Federal rules restrict any use of the information to criminally investigate or prosecute any alcohol or drug abuse patient.[facility] HospitalIn the event this information is protected by the Federal Confidentiality of Alcohol and Drug Abuse Patient Records regulations: The Federal rules restrict any use of the information to criminally investigate or prosecute any alcohol or drug abuse patient.[facility] HospitalIn the event this information is protected by the Federal Confidentiality of Alcohol and Drug Abuse Patient Records regulations: The Federal rules restrict any use of the information to criminally investigate or prosecute any alcohol or drug abuse patient.[facility] HospitalIn the event this information is protected by the Federal Confidentiality of Alcohol and Drug Abuse Patient Records regulations: The Federal rules restrict any use of the information to criminally investigate or prosecute any alcohol or drug abuse patient.[facility] HospitalIn the event this information is protected by the Federal Confidentiality of Alcohol and Drug Abuse Patient Records regulations: The Federal rules restrict any use of the information to criminally investigate or prosecute any alcohol or drug abuse patient.[facility] HospitalIn the event this information is protected by the Federal Confidentiality of Alcohol and Drug Abuse Patient Records regulations: The Federal rules restrict any use of the information to criminally investigate or prosecute any alcohol or drug abuse patient.[facility] Reason for Visit (unrecogniz ed section and content) Reason Comments Refill Request Reason Onset Date Comments Refill Request 06/09/2021 Reason Comments Follow Up Reason Comments Results Reason Comments Received Outside Medical Records [facility] ED Reason Comments Received Outside Medical Records [facility] Car diac Cath Reason Comments Received Outside Medical Records Liver U S [facility] Reason Comments Received Outside Medical Records [facility] chest xray 12/18/2021 Reason Comments Received Outside Medical Records [facility] discharge instructions. 12/18/2021 Reason Comments Erroneous encounter-disregard Reason Comments Received Outside Medical Records EKG [facility] Reason Comments Hospital F/U Reason Comments Received Outside Medical Records [facility] 12 lead EKG 12/16/2021 and 12/17/2021 Reason Comments Received Outside Medical Records Pulmona ry Medicine [facility] Reason Comments Medication Problem Reason Onset Date Comments [facility] Outreach 04/27/2022 HCC Reason Comments Follow Up Reason Comments Follow Up pneumonia Reason Comments Orders Reason Comments Patient Question Reason Comments Received Outside Medical Records [facility] 09/07 07/30 Reason Comments Orders [employer] annual oxygen prescription renewal Reason Comments Received Outside Medical Records [facility] ED 03/15/23 Reason Onset Date Comments [facility] Outreach 04/15/2023 [employer] HCCs 2.16.24 Reason Onset Date Comments Refill Request 05/27/2023 Reason Comments Results Labs Reason Onset Date Comments Refill Request 07/11/2023 Reason Comments Medication Request Reason Onset Date Comments [facility] Outreach 08/03/2023 [employer] AWV/HCC and care gaps Reason Onset Date Comments [facility] Outreach 08/25/2023 [employer] Attributed Member- Needs 2023 [...] DILATOR IF OBSTRUCTED BRNCDILAT RSPSE SPMTRY PRE&POST-BRNCDILAT ADMaRina Farooq MD [address] [place] [address] [facility] [address] [place] [id number] Referral ID Status Reason Start Date Expiration Date V isits Requested Visits Authorized [id number] Closed Auto-Generate d Referral 03/05/2024 04/04/2025 1 1 Specialty Diagnoses / Procedures Referred By Contac t Referred To Contact [facility] Diagnoses Chronic obstructive pulmonary disease, unspecified COPD type (HCC) Procedures LUNG DIFFUSION CAPACITY (DLCO) DIFFUSING CAPACITY Raina Huynh MD [address] [place] [address] [address] Referral ID Status Reason Start Date Expiration Date V isits Requested Visits Authorized [id number] Closed Auto-Generate d Referral 03/05/2024 04/04/2025 1 [...] MULTIPLE DETER Raina Huynh MD [address] [place] [address] Phone: tel: fax: [facility] [address] [place] [address] Referral ID Status Reason Start Date Expiration Date V isits Requested Visits Authorized [id number] Closed Auto-Generate d Referral 03/05/2024 04/04/2025 1 1 Reason Comments Established Patient COPD follow up Reason Comments Radiology CT Specialty Diagnoses / Procedures Referred By Clayac t Referred To Contact CT [facility] Diagnoses Pneumonia of left lower lobe due to infectious organism Lung nodules Procedures CT CHEST WO IVCON DIAGNOSTIC COMPUTED TOMOGRAPHY THORAX W/O CNTRST Raina Huynh MD [address] [place] [address] Phone: tel: fax: [place] [phone] Referral ID Status Reason Start Date Expiration Date V isits Requested Visits Authorized [id number] Closed Auto-Generate d Referral 03/05/2024 04/04/2025 1 1 Reason Onset Date Comments Population Health Navigation Outreach 04/26/2024 [employer] High Risk - Attempt 2 Reason Onset Date Comments Population Health Navigation Outreach 06/18/2024 [facility] Reason Comments Follow Up Multiple issues Reason Onset Date Comments Results 06/29/2024 Reason Comments Patient Update Reason Onset Date Comments ACM DELMIS RN 09/10/2024 ED Utilizatio n review per request of payor - [employer] [facility] Teams (unrecognized sec tion and content) Core Man Relationship Specialty Start Date End Date Paddy Zaidi MD [employer] [place] [address] PCP - General Family Practice 05/27/15 Core Man Relationship Specialty Start Date End Date Paddy Zaidi MD [address] [place] [address], [place] [address] PCP - General Family Practice 05/27/15 Core Man Relationship Specialty Start Date End Date Paddy Zaidi MD [address] [place] [address], [place] [address] PCP - General Family Practice 05/27/15 Core Man Relationship Specialty Start Date End Date Paddy Zaidi MD [address] [place] [address], [place] [address] PCP - General Family Practice 05/27/15 Core Man Relationship Specialty Start Date End Date Paddy Zaidi MD [address] [place] [address], [place] [address] PCP - General Family Practice 05/27/15 Core Man Relationship Specialty Start Date End Date Paddy Zaidi MD [address] [place] [address], [place] [address] PCP - General Family Medicine 05/27/15 Core Man Relationship Specialty Start Date End Date Paddy Zaidi MD [address] [place] [address], [place] [address] PCP - General Family Medicine 05/27/15 Core Man Relationship Specialty Start Date End Date Paddy Zaidi MD [address] [place] [address] [place] [address] PCP - General Family Medicine 05/27/15 Core Man Relationship Specialty Start Date End Date Paddy Zaidi MD [address] [place] [address] PCP - General Family Medicine 05/27/15 Core Man Relationship Specialty Start Date End Date Paddy Zaidi MD [address] [place] [address] PCP - General Family Medicine 05/27/15 Core Man Relationship Specialty Start Date End Date Paddy Zaidi MD [employer] [place] [address] PCP - General Family Medicine 05/27/15 Core Man Relationship Specialty Start Date End Date Paddy Zaidi MD [address] [place], [place] [address], [place] [address] PCP - General Family Medicine 05/27/15 Core Man Relationship Specialty Start Date End Date Paddy Zaidi MD [address] [place], [place] [address], [place] [address] PCP - General Family Medicine 05/27/15 Core Man Relationship Specialty Start Date End Date Paddy Zaidi MD [address] [place], [place] [address], [place] [address] PCP - General Family Medicine 05/27/15 Core Man Relationship Specialty Start Date End Date Paddy Zaidi MD [address] [place], [place] [address], [place] [address] PCP - General Family Medicine 05/27/15 Core Man Relationship Specialty Start Date End Date Paddy Zaidi MD [address] [place], [place] [address], [place] [address] PCP - General Family Medicine 05/27/15 Core Man Relationship Specialty Start Date End Date Paddy Zaidi MD [address] [place] [address], [place] [address] PCP - General Family Medicine 05/27/15 Core Man Relationship Specialty Start Date End Date Paddy Zaidi MD [address] [place] [address] PCP - General Family Medicine 05/27/15 Core Man Relationship Specialty Start Date End Date Paddy Zaidi MD [address] [place] [address] PCP - General Family Medicine 05/27/15 Core Man Relationship Specialty Start Date End Date Paddy Zaidi MD [address] [place] [address] PCP - General Family Medicine 05/27/15 Team Status: Active Member Role Status Dates Dr. Shayne Zaidi MD Family Provider Active Dr. Shayne Zaidi MD Primary Care Provider Active Team Status: Inactive Member Role Status Dates Dr. Shayne Zaidi MD Primary Care Provider Active Dr. Adrian Eddy DO Emergency Provider Active Core Man Relationship Specialty Start Date End Date Paddy Zaidi MD [address] [place] [address] PCP - General Family Medicine 05/27/15 Core Man Relationship Specialty Start Date End Date Paddy Zaidi MD [address] [place] [address] PCP - General Family Medicine 05/27/15 Team Status: Inactive Member Role Status Dates Dr. Shayne Zaidi MD Primary Care Provider Active Dr. Parker Metzger MD Emergency Provider Active Core Man Relationship Specialty Start Date End Date Paddy Zaidi MD [address] [place] [address] PCP - General Family Medicine 05/27/15 Core Man Relationship Specialty Start Date End Date Paddy Zaidi MD [address] [place] [address] PCP - General Family Medicine 05/27/15 Core Man Relationship Specialty Start Date End Date Paddy Zaidi MD [address] [place], [place] [address] PCP - General Family Medicine 05/27/15 Core Man Relationship Specialty Start Date End Date Paddy Zaidi MD [address] [place] [address] PCP - General Family Medicine 05/27/15 Core Man Relationship Specialty Start Date End Date Paddy Zaidi MD [address] [place] [address] PCP - General Family Medicine 05/27/15 Core Man Relationship Specialty Start Date End Date Paddy Zaidi MD [address] [place] [address] PCP - General Family Medicine 05/27/15 Core Man Relationship Specialty Start Date End Date Paddy Zaidi MD [address] [place] [address] PCP - General Family Medicine 05/27/15 Core Man Relationship Specialty Start Date End Date Paddy Zaidi MD [address] [place], [place] [address] PCP - General Family Medicine 05/27/15 Hever Martínez APRN.AUTO CAMP ATTENDANT [address] [facility] [address] [place], [place] [address] Timber Framer Helper Internal Medicine 01/15/24 Core Man Relationship Specialty Start Date End Date Paddy Zaidi MD [address] [place], [place] [address] PCP - General Family Medicine 05/27/15 Hever Martínez, CASKET LINER.AUTO CAMP ATTENDANT [address] [facility] [address] [place], [place] [address] Timber Framer Helper Internal Medicine 01/15/24 Core Man Relationship Specialty Start Date End Date Paddy Zaidi MD [address] [place], [place] [address]47941 PCP - General Family Medicine 05/27/15 Hever Martínez, CASKET LINER.AUTO CAMP ATTENDANT [address] [facility] [address] [place], [place] [address] Timber Framer Helper Internal Medicine 01/15/24 Core Man Relationship Specialty Start Date End Date Paddy Zaidi MD [address] [place], [place] [address] PCP - General Family Medicine 05/27/15 Hever Martínez, CASKET LINER.AUTO CAMP ATTENDANT [address] [facility] [address] [place] [address] Timber Framer Helper Internal Medicine 01/15/24 Core Man Relationship Specialty Start Date End Date Paddy Zaidi MD [address] [place], [place] [address] PCP - General Family Medicine 05/27/15 Hever Martínez, CASKET LINER.AUTO CAMP ATTENDANT [address] [facility] [address] [place] [address] Timber Framer Helper Internal Medicine 01/15/24 Core Man Relationship Specialty Start Date End Date Paddy Zaidi MD [address] [place], [place] 264741 PCP - General Family Medicine 05/27/15 Hever Martínez APRN.AUTO CAMP ATTENDANT [address] [facility] [address] [place], [place] [address] Timber Framer Helper Internal Medicine 01/15/24 Core Man Relationship Specialty Start Date End Date Paddy Zaidi MD [address] [place], [place] [address] PCP - General Family Medicine 05/27/15 Hever Martínez, CASKET LINER.AUTO CAMP ATTENDANT [address] [facility] [address] [place], [place] [address] Timber Framer Helper Internal Medicine 01/15/24 Core Man Relationship Specialty Start Date End Date Paddy Zaidi MD [address] [place], [place] [address] PCP - General Family Medicine 05/27/15 Hever Martínez, CASKET LINER.AUTO CAMP ATTENDANT [address] [facility] [address] [place], [place] [address] Timber Framer Helper Internal Medicine 01/15/24 Core Man Relationship Specialty Start Date End Date Paddy Zaidi MD [address] [place], [place] 377[address] PCP - General Family Medicine 05/27/15 Hever Martínez, CASKET LINER.AUTO CAMP ATTENDANT [address] [facility] [address] [place], [place] [address] Timber Framer Helper Internal Medicine 01/15/24 Core Man Relationship Specialty Start Date End Date Paddy Zaidi MD [address] [place], [place] [address]24[address] PCP - General Family Medicine 05/27/15 Hever Martínez, CASKET LINER.AUTO CAMP ATTENDANT [address] [facility] [place] [address] Timber Framer Helper Internal Medicine 01/15/24 Core Man Relationship Specialty Start Date End Date Paddy Zaidi MD [address] [place] [address] PCP - General Family Medicine 05/27/15 Hever Martínez, CASKET LINER.AUTO CAMP ATTENDANT [address] [facility] [place] [address] Timber Framer Helper Internal Medicine 01/15/24 Core Man Relationship Specialty Start Date End Date Paddy Zaidi MD [address] [place], [place] 3837[address] PCP - General Family Medicine 05/27/15 Hever Martínez, CASKET LINER.AUTO CAMP ATTENDANT [address] [facility] [place] [address] Timber Framer Helper Internal Medicine 01/15/24 Core Man Relationship Specialty Start Date End Date Paddy Zaidi MD [address] [place] [address] PCP - General Family Medicine 05/27/15 Hever Martínez, CASKET LINER.AUTO CAMP ATTENDANT [address] [facility] [place] [address] Timber Framer Helper Internal Medicine 01/15/24 Core Man Relationship Specialty Start Date End Date Paddy Zaidi MD [address] [place] [address] PCP - General Family Medicine 05/27/15 Hever Martínez, CASKET LINER.AUTO CAMP ATTENDANT [address] [facility] [place] [address] Timber Framer Helper Internal Medicine 01/15/24 Core Man Relationship Specialty Start Date End Date Paddy Zaidi MD [address] [place] [address] PCP - General Family Medicine 05/27/15 Hever Martínez, CASKET LINER.AUTO CAMP ATTENDANT [address] [facility] [place] [address] Timber Framer Helper Internal Medicine 01/15/24 Team Status: Active Member Role/Relationship Status Dates Dr. Shayne Zaidi MD Primary Care Provider Active Team Status: Inactive Member Role/Relationship Status Dates Dr. Shayne Zaidi MD Primary Care Provider Active Start: September 10, 2024 End: September 12, 2024 Dr. Kristopher Valencia DO Admit Provider Active Start: September 10, 2024 End: September 12, 2024 Dr. Kristopher Valencia DO Other Provider Active Start: September 10, 2024 End: September 12, 2024 Dr. Aayush Sibley DO Attending Provider Active Start: September 10, 2024 End: September 12, 2024 Dr. Ranjit Fuentes MD Other Provider Active Start: September 10, 2024 End: September 12, 2024 Dr. Douglas Alegre MD Other Provider Active Start : September 10, 2024 End: September 12, 2024 Dr. Yifan Katz MD Other Provider Active St art: September 10, 2024 End: September 12, 2024 Dr. Jasvir Deutsch MD Other Provider Active Star t: September 10, 2024 End: September 12, 2024 Dr. Rocky Coronado MD Other Provider Active Sta rt: September 10, 2024 End: September 12, 2024 Dr. Yoseph Winn MD Other Provider Active Star t: September 10, 2024 End: September 12, 2024 Dr. Dallas Muller MD Other Provider Active Start : September 10, 2024 End: September 12, 2024 Dr. Kristopher Ray , DO Other Provider Active Sta rt: September 10, 2024 End: September 12, 2024 Dr. John Nayak MD Other Provider Active Star t: September 10, 2024 End: September 12, 2024 Dr. Rosalino Asif MD Other Provider Active St art: September 10, 2024 End: September 12, 2024 Dr. Patricia Burden MD Other Provider Active Start: September 10, 2024 End: September 12, 2024 Dr. Martínez Mclean MD Other Provider Active S tart: September 10, 2024 End: September 12, 2024 Dr. Omar Hidalgo MD Other Provider Active Start: September 10, 2024 End: September 12, 2024 Arturo Rose MAINTENANCE SUPERVISOR MECHANICAL, MAINTENANCE SUPERVISOR MECHANICAL-C Other Provider Active Start : September 10, 2024 End: September 12, 2024 Jenny Yancey PA, PA Other Provider Active Start: September 10, 2024 End: September 12, 2024 JI Burgos Other Provider Active Start: September 10, 2024 End: September 12, 2024 Team Status: Active Member Role/Relationship Status Dates Dr. Shayne Zaidi MD Primary Care Provider Active Start: September 10, 2024 Dr. Kristopher Valencia , DO Admit Provider Active Start: September 10, 2024 Dr. Kristopher Valencia , Other Provider Active Start: September 10, 2024 Dr. Aayush Sibley , DO Other Provider Active S tart: September 10, 2024 Dr. Dallas Muller MD Attending Provider Active S tart: September 10, 2024 Team Status: Active Member Role/Relationship Status Dates Dr. Shayne Zaidi MD Primary Care Provider Active Start: September 11, 2024 Dr. Kristopher Valencia , DO Admit Provider Active Start: September 11, 2024 Dr. Kristopher Valencia DO Other Provider Active Start: September 11, 2024 Dr. Aayush Sibley , DO Other Provider Active S tart: September 11, 2024 Dr. Ranjit Fuentes MD Other Provider Active Start: September 11, 2024 Dr. Douglas Alegre MD Other Provider Active Start : September 11, 2024 Dr. Yifan Katz MD Other Provider Active St art: September 11, 2024 Dr. Jasvir Deutsch MD Other Provider Active Star t: September 11, 2024 Dr. Rocky Coronado MD Other Provider Active Sta rt: September 11, 2024 Dr. Yoseph Winn MD Other Provider Active Star t: September 11, 2024 Dr. Dallas Muller MD Attending Provider Active S tart: September 11, 2024 Dr. Dallas Muller MD Other Provider Active Start : September 11, 2024 Dr. Kristopher Ray DO Other Provider Active Sta rt: September 11, 2024 Dr. John Nayak MD Other Provider Active Star t: September 11, 2024 Dr. Rosalino Asif MD Other Provider Active St art: September 11, 2024 Dr. Patricia Burden MD Other Provider Active Start: September 11, 2024 Dr. Martínez Mclean MD Other Provider Active S tart: September 11, 2024 Dr. Omar Hidalgo MD Other Provider Active Start: September 11, 2024 Arturo Rose MAINTENANCE SUPERVISOR MECHANICAL, MAINTENANCE SUPERVISOR MECHANICAL-C Other Provider Active Start : September 11, 2024 Jenny Yancey PA, PA Other Provider Active Start: September 11, 2024 JI Burgos Other Provider Active Start: September 11, 2024 Team Status: Active Member Role/Relationship Status Dates Dr. Shayne Zaidi MD Primary Care Provider Active Start: September 11, 2024 Dr. Kristopher Valencia DO Admit Provider Active Start: September 11, 2024 Dr. Kristopher Valencia DO Other Provider Active Start: September 11, 2024 Dr. Aayush Sibley DO Attending Provider Active Start: September 11, 2024 Dr. Aayush Sibley DO Other Provider Active S tart: September 11, 2024 Dr. Ranjit Feuntes MD Other Provider Active Start: September 11, 2024 Dr. Douglas Alegre MD Other Provider Active Start : September 11, 2024 Dr. Yifan Katz MD Other Provider Active St art: September 11, 2024 Dr. Jasvir Deutsch MD Other Provider Active Star t: September 11, 2024 Dr. Rocky oCronado MD Other Provider Active Sta rt: September 11, 2024 Dr. Yoseph Winn MD Other Provider Active Star t: September 11, 2024 Dr. Dallas Muller MD Other Provider Active Start : September 11, 2024 Dr. Kristopher Ray DO Other Provider Active Sta rt: September 11, 2024 Dr. John Nayak MD Other Provider Active Star t: September 11, 2024 Dr. Rosalino Asif MD Other Provider Active St art: September 11, 2024 Dr. Patricia Burden MD Other Provider Active Start: September 11, 2024 Dr. Martínez Mclean MD Other Provider Active S tart: September 11, 2024 Dr. Omar Hidalgo MD Other Provider Active Start: September 11, 2024 Arturo Rose MAINTENANCE SUPERVISOR MECHANICAL, MAINTENANCE SUPERVISOR MECHANICAL-C Other Provider Active Start : September 11, 2024 Jenny WORKMAN, PA Other Provider Active Start: September 11, 2024 JI Burgos Other Provider Active Start: September 11, 2024 Goals (unrecognized section and content) Goals may [...] BE BASED ON THE PRIMARY CLINICAL RECORDS. [employer] [facility]. provides no warranty or guarantee of the accuracy or completeness of information in this document.
[2024-09-16 19:41] LABS: Mucous, Urine 0 SEEN /hpf (<or=2+)
[2024-09-16 19:47] LABS: Color, Urine Yellow (Yellow); Glucose, Dipstick Normal (Normal); Ketone-Dipstick Negative (Negative); Leukocyte Esterase-Dipstick 25 /ul (Negative); Nitrite-Dipstick Negative (Negative); Occult Blood-Urine 250 /ul (Negative); Protein-Dipstick 30 mg/dl (Negative); Specific Gravity, Urine 1.010 (1.002-1.030); Urine Bilirubin Dipstick Negative (Negative)
[2024-09-16 19:57] LABS: Anion Gap 9 (5-15); BUN 24 mg/dL (4-19); BUN/Creat Ratio 29.2 RATIO (10-20); Calcium,Total 9.3 mg/dL (7.6-11.0); Carbon Dioxide 35.6 mmol/L (21.0-32.0); Chloride 93 mmol/L (98-108); Estimated Creatinine Clearance 80.91 ml/min (50-250); Glucose 112 mg/dL (70-99); Potassium 4.6 mmol/L (3.3-5.1)
[2024-09-16] MEDS: 0.9% Normal Saline (1000mL) 1,000 ML 150 ML IV (20:00)
--- NOTE | 2024-09-16 20:10 | RAD_ITS ---
PROCEDURE: CHEST 1 VIEW (PORTABLE) 09/16/2024 REASON FOR EXAM: COUGH TECHNIQUE: Frontal view of the chest. COMPARISON: 09/12/2024 FINDINGS: Hardware: Sternotomy wires are present. Heart: Cardiac and mediastinal contours are stable. Lungs: No significant change in the appearance of the lungs. Bones: Degenerative changes are identified within the thoracic spine. Other: Persistent elevation of the right hemidiaphragm. Contrast is noted within the colon. RAD/Chest 1 View (Portable) IMPRESSION: No Acute Findings. Reading Location[facility]
[2024-09-16 20:22] LABS: Red Blood Cells-Urine 5-10 SEEN /hpf (0-5); Squamous Epithelial Cells - UA 0-5 SEEN /hpf (0-5)
[2024-09-16] MEDS: Lorazepam 2 MG/ML WCH Syringe 1 MG IV (20:35)
--- NOTE | 2024-09-16 20:55 | EKG12_ITS ---
Test Reason : SOB Blood Pressure : */* mmHG Vent. Rate : 101 BPM Atrial Rate : * BPM P-R Int : * ms QRS Dur : 80 ms QT Int : 364 ms P-R-T Axes : * 5 58 degrees QTcB Int : 471 ms Atrial fibrillation with rapid ventricular response Abnormal ECG Confirmed by MICHAEL GRAHAM, VERONICA ([id number]), acquisitions editor JESUS HERNANDEZ ([id number]) on 09/17/2024 1:15:29 PM Referred By: Confirmed By: VERONICA RODRIGUEZ MD
--- NOTE | 2024-09-16 21:19 | HP.PCM.HOS_ITS ---
HPI - General General Date of Admission: 09/16/24 Date of Service: 09/16/24 Chief Complaint: Confusion HPI Narrative The patient is an 83 y/o M w/ PMHx: Obesity, HTN, HLD, CAD s/p CABG x 2 and PCI, HFpEF, Hypothyroidism, Chronic neuropathy, CKD stage II per GFR trending, Hx CVA, Anxiety and Depression/Panic attacks, recent discharge 09/12/24 following evaluation and treatment of chronic hypoxic respiratory failure secondary to acute HFrEF exacerbation in addition to aspiration pneumonia discharged on Augmentin as well as PAF with RVR with atenolol increased by cardiology during previous evaluation and continuation of patient Coumadin with INR trending to now re-presents to the [facility] ED on 09/16/2024 with history of reported confusion that started the evening prior with family noting concern for hallucinations with patient upon arrival not understanding why he was brought to the ED but noting he is very anxious and requesting medication. Workup in the ED included T97.7, heart 95, BP 122/72, respiratory rate 14, 97% on 3 L nasal cannula with most recent repeat vitals T98.3, heart rate 100, BP 149/72, respiratory rate 20, 98% on 3 L nasal cannula, CBC with WBC 18, hemoglobin 13.9, platelet 201 with left shift, coags with INR 3.1, BMP with chloride 93,, taxine 35.6, anion gap 9, BUN/creatinine 24/0.81, glucose 112, urinalysis with no obvious evidence of UTI, CT brain with no acute intracranial finding, chest x-ray similar to recent however waiting on final read per radiology. In the ED patient ministered Ativan 1 mg IV x 1 secondary to complaints of significant sensation of anxiety requesting medication. In the ED patient administered MIVFs. [facility] Medical History Atherosclerosis of coronary artery of [place] heart without angina pectoris Prostate CA Stroke FREEMDAN (dyspnea on exertion) Central sleep apnea Stage 2 moderate COPD by GOLD classification HTN (hypertension) Hoarseness left vocal cord paralysis Home Medications ?Medication ?Instructions ?Recorded ?Last Taken ?Type levothyroxine 50 mcg tablet 50 mcg PO DAILY thyroid 12/14/21 History atorvastatin 40 mg tablet 40 mg PO QHS cholesterol 12/14/21 History spironolactone 25 mg tablet 25 mg PO DAILY diuretic 12/14/21 History aspirin 81 mg chewable tablet 81 mg PO DAILY@0800 heal th 12/14/21 12/14/21 History potassium chloride 10 mEq 20 meq PO DAILY supplement 1 02/13/21 12/14/21 History tablet,extended release albuterol sulfate 90 mcg/actuation 2 puff inhalation Q 4H PRN PRN 03/15/23 Unknown Rx aerosol inhaler (Ventolin HFA) Wheezing ##1 fluticasone 250 mcg-salmeterol 50 1 inh inhalation Q12 H 09/10/24 Unknown History mcg/dose blistr powdr for inhalation gabapentin 300 mg capsule 300 mg PO BID 09/10/24 Unkno wn History nitroglycerin 0.3 mg sublingual 0.3 mg sublingual Q5M PRN chest 09/10/24 Unknown History tablet pain paroxetine HCl 40 mg tablet 40 mg PO DAILY 09/10/24 Un known History amoxicillin 875 mg-potassium 1 tab PO BIDCM #11 tabs 0 09/12/24 Unknown Rx clavulanate 125 mg tablet atenolol 50 mg tablet 50 mg PO DAILY #30 tabs 0808/01 Unknown Rx furosemide 40 mg tablet (Lasix) 40 mg PO BID #60 tabs 09/12/24 Unknown Rx warfarin 2.5 mg tablet (Jantoven) 5 mg (2 x 2.5 mg) PO 1700 #60 tabs 09/12/24 Unknown Rx Allergy/AdvReac Type Severity Reaction Status Date / Time oxycodone (From Percodan) Allergy Other Verified 09/16/24 18:21 Surgical History History of coronary artery stent placement (12/16/21) Cataract extraction status History of hip replacement History of open heart surgery Social History (Updated 09/16/24 @ 21:[address] Olivia Walters MD) household members: family Smoking Status: Former smoker quit date: 02/08/92 pack-years: 37 Tobacco: How many years used: 20 alcohol intake: never substance use type: does not use ROS Review of Systems ROS Unobtainable: due to encephalopathy Vital Signs Vital Signs Vital Signs: 09/16/24 18:21 09/16/24 18:27 09/16/24 18:31 Temperature 97.7 F L 98.2 F Temperature Source Temporal Oral Pulse Rate 95 100 Respiratory Rate 14 22 H Respiratory Pattern Normal Blood Pressure 122/72 H 133/74 H Blood Pressure Mean 88 93 Pulse Ox 97 95 Oxygen Delivery Method Nasal Cannula Nasal Cannula Oxygen Flow Rate (L/min) 4 2 09/16/24 19:31 09/16/24 20:00 09/16/24 20:50 Temperature 98.3 F 98.7 F 98.7 F Temperature Source Oral Oral Pulse Rate 90 90 90 Respiratory Rate 18 18 18 Respiratory Pattern Blood Pressure 140/87 H 146/70 H 146/70 H Blood Pressure Mean 104 95 95 Pulse Ox 98 98 98 Oxygen Delivery Method Room Air Room Air Oxygen Flow Rate (L/min) 09/16/24 21:00 Temperature 98.3 F Temperature Source Oral Pulse Rate 100 Respiratory Rate 20 H Respiratory Pattern Blood Pressure 149/72 H Blood Pressure Mean 97 Pulse Ox 98 Oxygen Delivery Method Room Air Oxygen Flow Rate (L/min) Weight Weight: 215 lb 6.266 oz Body Mass Index (BMI) 30.0 Physical Exam Narrative Physical Examination: General: Awakens to stimuli but very fatigued and lethargic, recent sedated medication in the ED, not markedly alert as a result, not able to answer orientation questions, laying in the ED bed, airway appropriate. Skin: Normal color, normal turgor, no icterus, no cyanosis except occasional stage ecchymoses, abrasion, bilateral lower extremity venous stasis skin changes. HEENT: AT/NC, EOM unable to be assessed well given recent sedated regimen/lethargy, PERRLA, MMM, no carotid bruits, no marked JVD noted. Lungs: Diminished, greater bases, mildly increased respiratory rate but no distress, no significantly appreciated rales, ronchi or wheezing. Heart: Regular rate, regular; no gallop, rub audible. Abdomen: Soft, obese, NTTP, ND, distant normal BS, no appreciated HSM. Extremities: No cyanosis, no clubbing, mild ankle bilateral not markedly pitting edema, see skin. Neurological: Awakens to stimuli but very fatigued and lethargic, recent sedated medication in the ED, not markedly alert as a result, not able to answer orientation questions, laying in the ED bed, airway appropriate, cognitive function not baseline intact, pupils equally reactive to light and accommodation, cranial nerves difficult to assess given recent sedated medication, spontaneously moving extremities, no obvious focal deficits but difficult exam given recent sedation, strength accordingly severely globally decreased Psychiatric: Affect appears flat, lethargic following recent sedated ED medication, no acute evidence of depressive or anxiety feelings but does have underlying history. Results Lab / Micro Data 09/16/24 18:25 09/16/24 18:25 Labs: Laboratory Results - last 24 hr 09/16/24 18:25: WBC 18.0 H, RBC 4.62, Hgb 13.9, Hct 44.0, MCV 95.2 H, MCH 30.1, MCHC 31.6 L, RDW Std Deviation 46.3 H, RDW Coeff of Erica 13.2, Plt Count 201, MPV 9.1, Immature Gran % (Auto) 1.800 H, Neut % (Auto) 85.4 H, Lymph % (Auto) 4.6 L, [place] % (Auto) 4.1, Eos % (Auto) 3.7, Baso % (Auto) 0.4, Absolute Neuts (auto) 15.3 H, Absolute Lymphs (auto) 0.83, Nucleated RBC % 0, PT 32.4 H, INR 3.1, Sodium 138, Potassium 4.6, Chloride 93 L, Carbon Dioxide 35.6 H, Anion Gap 9, B UN 24 H, Creatinine 0.81, Estim Creat Clear Calc 80.91, Est GFR (MDRD) Non-Af 87, BUN/Creatinine Ratio 29.2 H, Glucose 112 H, Calcium 9.3 09/16/24 19:38: Urine Color Yellow, Urine Clarity Clear, Urine pH 7.0, Ur Specific [place] 1.010, Urine Protein 30 H, Urine Glucose (UA) Normal, Urine Ketones Negative, Urine Occult Blood 250 H, Urine Nitrite Negative, Urine Bilirubin Negative, Urine Urobilinogen 4 H, Ur Leukocyte Esterase 25 H, Urine RBC 5-10 SEEN, Urine WBC 0-5 SEEN, Ur Squamous Epith Cells 0-5 SEEN, Urine Bacteria 1+, Hyaline Casts 10-25 SEEN, Urine Mucus 0 SEEN Imaging Radiology Impression Brain CT 09/16/24 18:50 IMPRESSION: No acute intracranial finding. Reading Location: [facility] Assessment & Plan Assessment/Plan (1) Altered mental status: (2) Leukocytosis: PLAN: Plan The patient is an 83 y/o M w/ PMHx: Obesity, HTN, HLD, CAD s/p CABG x 2 and PCI, HFpEF, Hypothyroidism, Chronic neuropathy, CKD stage II per GFR trending, Hx CVA, Anxiety and Depression/Panic attacks, recent discharge 09/12/24 following evaluation and treatment of chronic hypoxic respiratory failure secondary to acute HFrEF exacerbation in addition to aspiration pneumonia discharged on Augmentin as well as PAF with RVR with atenolol increased by cardiology during previous evaluation and continuation of patient Coumadin with INR trending to now re-presents to the [facility] ED on 09/16/2024 with history of reported confusion that started the evening prior with family noting concern for hallucinations with patient upon arrival not understanding why he was brought to the ED but noting he is very anxious and requesting medication. #1. Reported altered mental status, questionable hallucinations, unclear exact etiology with leukocytosis (of note during recent admission was on IV Solu- Medrol certainly could elevated in relation to this but uncertain): Will admit to PCU, maintain on fall and aspiration precautions, will obtain ammonia level as well as ABG in addition to procalcitonin, will continue patient's Augmentin regimen however low threshold to transition to IV regimen if necessary, will avoid aggressive hydration given recent presentation with heart failure exacerbation, TSH and magnesium also requested, will maintain on telemetry to ensure no arrhythmia and will cycle cardiac enzymes, PT/OT/case management consulted for discharge planning. If there is no obvious source and patient remains confused may need to consider MRI of the brain however lower suspicion for stroke given therapeutic INR. #2. Recent Acute HFpEF Exacerbation: Chest x-ray appears similar to previous however awaiting final read per radiology, will continue Coumadin with INR trending, statin therapy, atenolol, spironolactone, Lasix regimen, avoid aggressive hydration, discontinue IV fluids initiated in the ED, most recent echocardiogram during recent admission 09/10/2024 with normal LV size, LV systolic function lower limits of normal, EF 53%, mild focal MV calcification, bileaflet, PASP 40 mmHg. #3. Recent aspiration pneumonia: Will maintain on aspiration precautions, will reconsult speech therapy, will continue oral Augmentin regimen, will continue diet adjustment with nectar thickened liquids. #4. PAF: Recent presentation with RVR likely related to pulmonary condition upon presentation, will continue patient home Coumadin with INR trending as well as atenolol home regimen. #5. CAD: Status post previous CABG x 2 and PCI noted of the distal left main and then the circumflex artery, also saphenous vein graft to the obtuse marginal branch and ECHEVARRIA to the LAD previously noted to be patent with an occluded right coronary artery and [id number] collaterals evident, will continue baby aspirin, Coumadin with INR trending, statin therapy, atenolol, not on ISSAC inhibitor/ARB potentially secondary to underlying CKD stage II but uncertain. #6. Chronic COPD with chronic hypoxic respiratory failure: Will maintain on 3 L NC home oxygen supplementation, temporarily hold home inhaler and transition interim to ATC budesonide therapy given PAF with RVR recent presentation concurrently, PRN albuterol, HOB, IS parameters. #7. Hypertension: Continue home regimen including spironolactone, Lasix, atenolol with hold parameters as needed, PRN hydralazine. #8. Hyperlipidemia: Will continue patient home statin therapy. #9. Hypothyroidism: Will continue patient on levothyroxine regimen, TSH requested. #10. Chronic neuropathy: Will cautiously continue patient on gabapentin regimen, low threshold to hold for sedation. #11. History of CVA: Patient with history of previous strokes including left brainstem stroke, will continue to baby aspirin, Coumadin with INR trending, statin therapy, hypertensive regimen as noted. #12. Chronic Kidney Disease Stage II, per GFR trending: Admission BUN/Cr 24/0.1, GFR 87, baseline renal function 0.6-0.9, repeat BMP in AM. #13. Anxiety and depression, panic attacks: Will continue patient on paroxetine regimen. Administered low-dose IV Ativan in the ED however patient following as expected is somnolent thus will avoid further administration if able. #14. Obesity: Weight loss and lifestyle changes encouraged. #15. DVT prophylaxis: Will continue Coumadin with INR trending, 3.1 upon admission. #16. CODE status: Full Code. Charges/Coding Visit Charges Inpatient E&M: 65891 Init Hosp L3
--- OUTSIDE RECORDS SUMMARY | 2024-09-16 21:41 | XMS RPT_ITS | CCD ---
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 Shayne Zaidi Primary Care Provider Dr. [...] Provider Dr. Shayne Zaidi Referring Provider Daksha TUFTING SUPERVISOR, VIDALC Shanon Attending Provider Paddy Zaidi MD Primary Care Provider [phone] Tanya WELDING TEACHER.ASPHALT MIXER, Hever Unavailable FLAVIA SMITH Attending Unavailable RAINA [...] Gwen GRAHAM, Dr. Nelson Other Provider Rose TUFTING SUPERVISOR-C, Arturo Tobar Other Provider Jenny Rachel Other Provider [phone] Moses López Other Provider [phone] Aayush Sibley DO Other Provider [phone] Renzo GRAHAM, Dr. Haynes Attending Provider [phone] Dallas Muller Attending Unavailable Coral Shayne [...] Consulting Unavailabl e Satti, Martínez Consulting Unavailable Achille, Omar Consulting Unavailable Rose HALL, Arturo Tobar Consulting Unavailable Jenny Rachel Consulting Unavail able Moses Alexis Consulting Unavailable Amro, Ahmed Consulting Unavailable Jabri, Ahmad Consulting Unavailable Mostafa, Yifan Consulting Unavailable Get, Jasvir Consulting Unavailable Cliff, Rocky Consulting Unavailable Pa, Yoseph Consulting Unavailable Renzo, Wenonah Consulting Unavailable Kristopher Ray Consulting Unavailable Belal, Farouk Consulting Unavailable Roaslino Asif Consulting Unavailable Nagajothi, Nagapradee Consulting Unavailabl e Satti, Martínez Consulting Unavailable Achille, Omar Consulting Unavailable Rose HALL, Arturo Tobar Consulting Unavailable Jenny Rachel Consulting Unavail able Moses Alexis Consulting Unavailable Aayush Sibley Attending Unavailable Kristopher Valencia Attending Unavailable ARTURO NG Attending Unavailable PADDY ZAIDI Primary Care Unavailable Allergies Allergy Classification Reported Allergen(s) Allergy Type Date of Onset Reaction(s) Facility (20 sources) Aspirin / oxyCODONE; Translations: [OXYCODONE-ASPIR IN] Drug Allergy 5 Mental Status Change [facility] Work Phone: (20 sources) oxyCODONE; Translations: [OXYCODONE] Drug Allergy 9 Other: See Comments [facility] (20 sources) Aspirin; Translations: [ASPIRIN] Drug Allergy 9 Unknown [facility] (1 source) oxyCODONE Drug Allergy 4 [facility] Repository Medications Current Medications Medication Drug Class(es) Dates Sig (Normalized) Sig (Original) [id number] actuat albuterol 0.09 mg/actuat metered dose [...] Start: 03-27-2024 take 1 puff(s) by mo [facility] twice daily fluticasone-salmeterol (ADVAIR DISKUS) 250-50 mcg/dose [...] Anticholinergic Start : 03-15 End: 09-10 Ipratropium [place] (Atrovent Hfa) 17 mcg/actuation HFA aerosol inhaler Discontinued 2 NMA INHALATION Q8H 12.9 0 March 15, 2023 1:00am September 10, 2024 1:19am Start: 03-15-2023 take 1 puff(s) by in halation every eight hours Ipratropium [place] (Atrovent Hfa) 17 mcg/actuation HFA aerosol inhaler [...] 1 capsule by inhalation once daily Tiotropium [place] 18 MCG capsule, w/inhalation device Discontinued 18 ug IH DAILY September 09, 2017 12:00am January 12, 2018 3:22pm COPD Start: 09-09-2017 End: 01-12-2018 take 18 ug by inhalation once daily Tiotropium [place] Discontinued 18 MCG IH DAILY September 08, [...] cardiovascular system; Translations: [Atherosclerotic heart disease of [place] coronary artery without angina pectoris] Onset: 5 [...] source) Long-term current use of anticoagulant; Translations: [rn care transition (current) use of anticoagulants] 02-16-2024 Episodic Other aftercare (3 sources) [facility] (current) use of anticoagulants; Translations: [[facility] current use of anticoagulant therapy] Onset: 5 [...] 09-12-2024 Anion gap [Moles/Vol] 11 mmol/L 5-15 [facility] BUN/creatinine ratioOrdered By: Aayush Sibley on 09-12-2024 Urea nitrogen/Creatinine [Mass ratio] 48.1 mg/mg High 10-20 [facility] Basic Metabolic Profile (BMP )on 09-12-2024 BUN/CRE 48.1 RATIO High -20 [facility] Comment on above: Performed By: #### M 300.4600, L400.0001, M300.4500 #### [facility] [address] [place], [address] Calcium [Mass/Vol] 8.9 mg/dL Normal 7.6-11.0 [facility] Comment on above: Performed By: #### M 300.4600, L400.0001, M300.4500 #### [facility] [address] [place], [address] Chloride [Moles/Vol] 96 mmol/L Low 98-108 [facility] Comment on above: Performed By: #### M 300.4600, L400.0001, M300.4500 #### [facility] [address] [place], [address] CO2 [Moles/Vol] 34.3 mmol/L High 21.0-32.0 [facility] Comment on above: Performed By: #### M 300.4600, L400.0001, M300.4500 #### [facility] [address] [place], [address] Creatinine [Mass/Vol] 0.92 mg/dL Normal 0.70-1.20 [facility] Comment on above: Performed By: #### M 300.4600, L400.0001, M300.4500 #### [facility] [address] [place], [address] ECRCL 69.17 ml/min Normal 50-250 [facility] Comment on above: Performed By: #### M 300.4600, L400.0001, M300.4500 #### [facility] [address] [place], [address] GAP 11 Normal 5-15 [facility] Comment on above: Performed By: #### M 300.4600, L400.0001, M300.4500 #### [facility] [address] [place], [address] GFR/1.73 sq M.predicted among non-blacks MDRD (S/P/Bld) [Vol rate/Area] 82 mL/min/{1.73_m2} Normal >60 [facility] Comment on above: Result Comment: mL/m in/1.73m2 CKD-EPI Creatinine Equation (2020) Performed By: #### M 300.4600, L400.0001, M300.4500 #### [facility] [address] [place], [address] Glucose [Mass/Vol] 120 mg/dL High 70-99 [facility] Comment on above: Performed By: #### M 300.4600, L400.0001, M300.4500 #### [facility] [address] [place], [address] Potassium [Moles/Vol] 4.0 mmol/L Normal 3.3-5.1 [facility] Comment on above: Result Comment: Hemo lysis present, Results??could be affected. ?? Performed By: #### M 300.4600, L400.0001, M300.4500 #### [facility] [address] [place], [address] Sodium [Moles/Vol] 142 mmol/L Normal 133-145 [facility] Comment on above: Performed By: #### M 300.4600, L400.0001, M300.4500 #### [facility] [address] [place], [address] Urea nitrogen [Mass/Vol] 44 mg/dL High 4-19 [facility] Comment on above: Performed By: #### M 300.4600, L400.0001, M300.4500 #### [facility] [address] [place], [address] Carbon dioxide, total [Moles /volume] in Central venous bloodOrdered By: Aayush Sibley on 09-12-2024 CO2 [Moles/Vol] 34.3 mmol/L High 21.0-32.0 [facility] Chest PA and Lateralon 09-12 Chest PA and Lateral [facility] Imaging Services [address] [place] [address] Chest PA and Lateral MR#: [id number] Acct: [id number] Name: ARTURO PEDERSEN Rep #: [id number] : 1940 M 83 From: Jad Wheeler MD PCP: Dr. Shayne Zaidi MD Status: ADM IN Study: Chest PA and Lateral Date of Exam: 09/12/24 Exam# [id number] Ordering Dr: Aayush Sibley DO PROCEDURE: CHEST [...] Shayne Zaidi MD; Dr. Aayush Sibley DO Vice President Of Instruction: Signed Normal [facility] Chloride assayOrdered By: Velia Sibley on 09-12-2024 Chloride [Moles/Vol] 96 mmol/L Low 98-108 [facility] Discharge Instructionon 08-0 Discharge Instruction [facility] Medical Records Department [address] [place] [address] Instructions for Home/Discharge Instructions 09/12/24 1439 MR#: [id number] Acct: [id number] Name: ARTURO PEDERSEN Rep #: [id number] : 1940 83 From: Aayush Sibley DO [...] Shayne Zaidi Consulting Providers: Kristopher Valencia; Ranjit Feuntes; Douglas Alegre; Yifan Katz; Jasvir Deutsch; Rocky [...] rechecked) Jenny Yancey PA [Med Staff - Replaced By [facility]] - Within 2 Weeks (Call for an appointment) Disposition Disposition (needs filled in before D/C Order can be placed): Home, Self Care 09/12/24 1503 Aayush Sibley DO CC: TUFTING SUPERVISORShena Rose; Dr. Douglas Alegre MD; Dr. Ranjit [...] MD; JI Valencia; JI Burgos Signed Normal [facility] Glomerular filtration rate ( GFR) estimation/1.73 sq m using serum, plasma, or whole bOrdered By: Aayush Sibley on 09-12-2024 GFR/1.73 sq M.predicted among non-blacks MDRD (S/P/Bld) [Vol rate/Area] 82 mL/min/{1.73_m2} >60 [facility] Comment on above: mL/min/1.73m2 CKD-EP I Creatinine Equation (2020) International normalized rat io (INR) calculationOrdered By: Aayush Sibley on 09-12-2024 INR Coag (Bld) [Relative time] 1.4 {INR} [facility] Potassium measurement (mass/ volume)Ordered By: Aayush Sibley on 09-12-2024 Potassium (Unsp spec) [Mass/Vol] 4.0 mmol/L 3.3-5.1 [facility] Comment on above: Hemolysis present, R esults could be affected. Prothrombin Time w/INRon INR Coag (PPP) [Relative time] 1.4 {INR} Normal [facility] Comment on above: Performed By: #### M 300.4600, L400.0001, M300.4500 #### [facility] [address] [place], [address] PT Coag (PPP) [Time] 17.8 s High 11.7-14.9 [facility] Comment on above: Performed By: #### M 300.4600, L400.0001, M300.4500 #### [facility] [address] [place], [address] Prothrombin timeOrdered By: Aayush Sibley on 09-12-2024 PT Coag (PPP) [Time] 17.8 s High 11.7-14.9 [facility] Serum creatinine measurement (mass/volume)Ordered By: Aayush Sibley on 09-12-2024 Creatinine [Mass/Vol] 0.92 mg/dL 0.70-1.20 [facility] Serum glucose measurement (m ass/volume)Ordered By: Aayush Sibley on 09-12-2024 Glucose [Mass/Vol] 120 mg/dL High 70-99 [facility] Serum or plasma calcium regan urement (mass/volume)Ordered By: Aayush Sibley on 09-12-2024 Calcium [Mass/Vol] 8.9 mg/dL 7.6-11.0 [facility] Serum or plasma urea nitroge n measurement (mass/volume)Ordered By: Aayush Sibley on 09-12-2024 Urea nitrogen [Mass/Vol] 44 mg/dL High 4-19 [facility] Sodium levelOrdered By: Aayush Sibley on 09-12-2024 Sodium [Moles/Vol] 142 mmol/L 133-145 [facility] Basic Metabolic Profile (BMP )on 09-11-2024 BUN/CRE 43.1 RATIO High 10-20 [facility] Comment on above: Performed By: #### L 500.2500 #### [facility] [address] [facility] [address] Calcium [Mass/Vol] 9.0 mg/dL Normal 7.6-11.0 [facility] Comment on above: Performed By: #### L 500.2500 #### [facility] [address] [place], [address] Chloride [Moles/Vol] 96 mmol/L Low 98-108 [facility] Comment on above: Performed By: #### L 500.2500 #### [facility] [address] [facility] [place], [address] CO2 [Moles/Vol] 26.8 mmol/L Normal 21.0-32.0 [facility] Comment on above: Performed By: #### L 500.2500 #### [facility] [address] [place], [address] Creatinine [Mass/Vol] 0.88 mg/dL Normal 0.70-1.20 [facility] Comment on above: Performed By: #### L 500.2500 #### [facility] [address] [place], [address] ECRCL 72.70 ml/min Normal 50-250 [facility] Comment on above: Performed By: #### L 500.2500 #### [facility] [address] [place], [address] GAP 15 Normal 5-15 [facility] Comment on above: Performed By: #### L 500.2500 #### [facility] [address] [place], [address] GFR/1.73 sq M.predicted among non-blacks MDRD (S/P/Bld) [Vol rate/Area] 85 mL/min/{1.73_m2} Normal >60 [facility] Comment on above: Result Comment: mL/m in/1.73m2 CKD-EPI Creatinine Equation (2020) Performed By: #### L 500.2500 #### [facility] [address] [place], [address] Glucose [Mass/Vol] 132 mg/dL High 70-99 [facility] Comment on above: Performed By: #### L 500.2500 #### [facility] [address] [place], [address] Potassium [Moles/Vol] 3.9 mmol/L Normal 3.3-5.1 [facility] Comment on above: Result Comment: Hemo lysis present, Results??could be affected. ?? Performed By: #### L 500.2500 #### [facility] [address] [place], [address] Sodium [Moles/Vol] 138 mmol/L Normal 133-145 [facility] Comment on above: Performed By: #### L 500.2500 #### [facility] [address] [place], [address] Urea nitrogen [Mass/Vol] 38 mg/dL High 4-19 [facility] Comment on above: Performed By: #### L 500.2500 #### [facility] [address] [place], [address] Tessa 09-11-2024 [facility] Telephone (POOJAWADS) ARTURO PEDERSEN ([id number]) 1940 M Date Time Provider Department 09/11/24 PADDY ZAIDI During your visit today, we recorded the following information about you: Talia Ann LPN 09/11/2024 1:31 PM Signed Received 09/11/2024 from [facility]. Placed in provider's inbox for review. Route to AL for scanning. 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 Placed in provider's inbox for review. 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 Speech Pathology [address] [place] [address] Modified Barium Swallow Study MR#: [id number] Acct: [id number] Name: ARTURO PEDERSEN Rep #: [id number] : 1940 83 From: Uyen Silva Modified [...] palpitations, or GI/ symptoms. A CXR at [facility] showed right hemidiaphragm elevation and left [...] Result: 5= enters airways/contacts vocal folds/not ejected [place] Thick Liquid via small single sip: cup: Result: 2= enter airway/above vocal folds/ejected [place] Thick Liquid via small single sip: cup Trial 2: Result: 3= enters airways/above vocal folds/not ejected [place] Thick Liquid via small single sip: cup [...] Cookie: Result: 1= does not enter airway [place] Thick Liquid via small single sip: cup [...] head i (more content not included)... Normal [facility] 12 Lead EKGon 09-10-[address] [facility] Cardiovascular Services [address] [place] [address] 12 Lead EKG 09/10/24 0122 MR#: [id number] Acct: [id number] Name: ARTURO PEDERSEN Rep #: [id number] : 1940 83 From: Dallas Muller MD Attending Dr: Dr. Aayush Sibley DO Status: A DM IN Ordering Dr: Kristopher Valencia DO Date: 09/10/24 Location: [facility] Sex: M C Admitted: 09/10/24 Test Reason [...] was found Confirmed by DALLAS MULLER MD ([id number]), script editor JESUS HERNANDEZ ([id number]) on 09/10/2024 8:29:31 AM Referred By: DR Valencia Confirmed By: DALLAS MULLER MD 09/10/24 0829 Date Dallas Muller MD CC: Dr. Kristopher Valencia DO; Dr. Shayne Zaidi MD; Dr. Aayush Sibley DO Signed Normal [facility] Absolute lymphocyte countOrd ered By: Kristopher Diamond on 09-10-2024 Lymphocytes Auto (Unsp spec) [#/Vol] 0.24 10*3/uL Low 0.83-4.51 [facility] Absolute neutrophil countOrd ered By: Kristopher Diamond on 09-10-2024 Neutrophils (Bld) [#/Vol] 10.2 10*3/uL High 2.0-7.7 [facility] Automated lymphocyte count a s percentage of total leukocytesOrdered By: Kristopher Diamond on 09-10-2024 Lymphocytes/100 WBC Auto (Unsp spec) 2.2 % Low 19-41 [facility] Basophil percentageOrdered B y: Kristopher Diamond on 09-10-2024 Basophils/100 WBC (Bld) 0.2 % 0-1 [facility] Bilirubin Test strip Ql (U)O rdered By: Kristopher Diamond on 09-10-2024 Bilirubin Ql (U) Negative Negative [facility] Bilirubin, totalOrdered By: Kristopher Diamond on 09-10-2024 Bilirubin [Mass/Vol] 0.73 mg/dL 0.00-1.30 [facility] CBC W/Diff, Automatedon Absolute Lymph 0.24 X10 3/uL Low 0.83-4.51 [facility] Comment on above: Performed By: #### L 503.0106, L506.0200, L501.4021, L300.3900, L500.4100, L503.7505, L300.8000, L500.4050, L100.0100, L501.2300, L501.9520, L501.5200 #### [facility] [address] [facility] [place], [address] Absolute Neut 10.2 X10 3/uL High 2.0-7.7 [facility] Comment on above: Performed By: #### L 503.0106, L506.0200, L501.4021, L300.3900, L500.4100, L503.7505, L300.8000, L500.4050, L100.0100, L501.2300, L501.9520, L501.5200 #### [facility] [address] [place], [address] Basophils/100 WBC (Bld) 0.2 % Normal 0-1 [facility] Comment on above: Performed By: #### L 503.0106, L506.0200, L501.4021, L300.3900, L500.4100, L503.7505, L300.8000, L500.4050, L100.0100, L501.2300, L501.9520, L501.5200 #### [facility] [address] [facility] [place], [address] (548 Eosinophils/100 WBC (Bld) 0.0 % Normal 0-5 [facility] Comment on above: Performed By: #### L 503.0106, L506.0200, L501.4021, L300.3900, L500.4100, L503.7505, L300.8000, L500.4050, L100.0100, L501.2300, L501.9520, L501.5200 #### [facility] [address] [facility] [place], [place], [phone] ([phone] Erythrocyte distribution width (RBC) [Ratio] 13.2 % Normal 11.6-14.6 [facility] Comment on above: Performed By: #### L 503.0106, L506.0200, L501.4021, L300.3900, L500.4100, L503.7505, L300.8000, L500.4050, L100.0100, L501.2300, L501.9520, L501.5200 #### [facility] [address] [facility] [place], [address] (837) Hematocrit (Bld) [Volume fraction] 44.1 % Normal 40-54 [facility] Comment on above: Performed By: #### L 503.0106, L506.0200, L501.4021, L300.3900, L500.4100, L503.7505, L300.8000, L500.4050, L100.0100, L501.2300, L501.9520, L501.5200 #### [facility] [address] [place], [address] Hemoglobin (Bld) [Mass/Vol] 14.3 g/dL Normal 13.0-16.5 [facility] Comment on above: Performed By: #### L 503.0106, L506.0200, L501.4021, L300.3900, L500.4100, L503.7505, L300.8000, L500.4050, L100.0100, L501.2300, L501.9520, L501.5200 #### [facility] [address] [facility] [place], [address] IG% 0.300 Normal 0.0-0.9 [facility] Comment on above: Result Comment: IG% - Immature Granulocytes (promyelocytes, myelocytes and metamyelocytes) > 1% indicates that a LEFT SHIFT is Present. Performed By: #### L 503.0106, L506.0200, L501.4021, L300.3900, L500.4100, L503.7505, L300.8000, L500.4050, L100.0100, L501.2300, L501.9520, L501.5200 #### [facility] [address] [place], [address] Lymphocytes/100 WBC (Bld) 2.2 % Low 19-41 [facility] Comment on above: Performed By: #### L 503.0106, L506.0200, L501.4021, L300.3900, L500.4100, L503.7505, L300.8000, L500.4050, L100.0100, L501.2300, L501.9520, L501.5200 #### [facility] [address] [place], [address] MCH (RBC) [Entitic mass] 31.0 pg Normal 27.0-32.0 [facility] Comment on above: Performed By: #### L 503.0106, L506.0200, L501.4021, L300.3900, L500.4100, L503.7505, L300.8000, L500.4050, L100.0100, L501.2300, L501.9520, L501.5200 #### [facility] [address] [place], [address] MCHC (RBC) [Mass/Vol] 32.4 g/dL Normal 32-36 [facility] Comment on above: Performed By: #### L 503.0106, L506.0200, L501.4021, L300.3900, L500.4100, L503.7505, L300.8000, L500.4050, L100.0100, L501.2300, L501.9520, L501.5200 #### [facility] [address] [place], [address] MCV (RBC) [Entitic vol] 95.7 fL High 80-94 [facility] Comment on above: Performed By: #### L 503.0106, L506.0200, L501.4021, L300.3900, L500.4100, L503.7505, L300.8000, L500.4050, L100.0100, L501.2300, L501.9520, L501.5200 #### [facility] [address] [place], [address] Monocytes/100 WBC (Bld) 2.8 % Normal 0-10 [facility] Comment on above: Performed By: #### L 503.0106, L506.0200, L501.4021, L300.3900, L500.4100, L503.7505, L300.8000, L500.4050, L100.0100, L501.2300, L501.9520, L501.5200 #### [facility] [address] [place], [address] Neutrophils/100 WBC (Bld) 94.5 % High 47-70 [facility] Comment on above: Performed By: #### L 503.0106, L506.0200, L501.4021, L300.3900, L500.4100, L503.7505, L300.8000, L500.4050, L100.0100, L501.2300, L501.9520, L501.5200 #### [facility] [address] [place], [address] (717) Nucleated RBC (Bld) [#/Vol] 0 10*3/uL Normal 0-5 [facility] Comment on above: Performed By: #### L 503.0106, L506.0200, L501.4021, L300.3900, L500.4100, L503.7505, L300.8000, L500.4050, L100.0100, L501.2300, L501.9520, L501.5200 #### [facility] [address] [place], [place], [phone] (585) Platelet mean volume (Bld) [Entitic vol] 9.2 fL Normal 6.2-12.0 [facility] Comment on above: Performed By: #### L 503.0106, L506.0200, L501.4021, L300.3900, L500.4100, L503.7505, L300.8000, L500.4050, L100.0100, L501.2300, L501.9520, L501.5200 #### [facility] [address] [place], [place], [phone] (293) Platelets (Bld) [#/Vol] 224 10*3/uL Normal 150-450 [facility] Comment on above: Performed By: #### L 503.0106, L506.0200, L501.4021, L300.3900, L500.4100, L503.7505, L300.8000, L500.4050, L100.0100, L501.2300, L501.9520, L501.5200 #### [facility] [address] [place], [place], [phone] (902) RBC (Bld) [#/Vol] 4.61 10*6/uL Normal 4.6-6.2 [facility] Comment on above: Performed By: #### L 503.0106, L506.0200, L501.4021, L300.3900, L500.4100, L503.7505, L300.8000, L500.4050, L100.0100, L501.2300, L501.9520, L501.5200 #### [facility] [address] [place], [place], [phone] (700) RDW SD 47.6 fl High 35.1-43.9 [facility] Comment on above: Performed By: #### L 503.0106, L506.0200, L501.4021, L300.3900, L500.4100, L503.7505, L300.8000, L500.4050, L100.0100, L501.2300, L501.9520, L501.5200 #### [facility] [address] [place], [place], [id number] (600) WBC (Bld) [#/Vol] 10.8 10*3/uL Normal 4.4-11.0 [facility] Comment on above: Performed By: #### L 503.0106, L506.0200, L501.4021, L300.3900, L500.4100, L503.7505, L300.8000, L500.4050, L100.0100, L501.2300, L501.9520, L501.5200 #### [facility] [address] [place], [place], [address] CO2 (BldV) [Moles/Vol]Ordere d By: Kristopher Diamond on 09-10-2024 CO2 [Moles/Vol] 37 mmol/L High 23-33 [facility] Calculated very low density lipoprotein (VLDL) cholesterol measurementOrdered By: Kristopher Diamond on 09-10-2024 Calculated very low density lipoprotein (VLDL) cholesterol measurement 8 mg/dL 5-40 [facility] Chest without Contraston Chest without Contrast [facility] Imaging Services [address] [place], [place] [address] Chest without Contrast MR#: [id number] Acct: [id number] Name: ARTURO PEDERSEN Rep #: [id number] : 1940 M 83 From: Jad Wheeler MD PCP: Dr. Shayne Zaidi MD Status: ADM IN Study: Chest without Contrast Date of Exam: 09/10/24 Exam# [id number] Ordering Dr: Kristopher Valencia DO PROCEDURE: CHEST [...] disease, correlate for aspiration pneumonia. Reading Location: [place] [address] CC: Dr. Kristopher Valencia ; Dr. Shayne Zaidi MD Vice President Of Instruction: Signed Normal [facility] Comprehensive Metabolic Prof ilon 09-10-2024 Albumin [Mass/Vol] 3.7 g/dL Normal 3.4-4.8 [facility] Comment on above: Performed By: #### M 300.4600, L400.0001, M300.4500 #### [facility] [address] [place], [address] Albumin/Globulin [Mass ratio] 0.9 {ratio} Normal 0.9-2.4 [facility] Comment on above: Performed By: #### M 300.4600, L400.0001, M300.4500 #### [facility] [address] [place], [address] ALK PHOS 199 U/L High 40-129 [facility] Comment on above: Performed By: #### M 300.4600, L400.0001, M300.4500 #### [facility] [address] [place], [address] ALT [Catalytic activity/Vol] 34 U/L Normal <=46 [facility] Comment on above: Performed By: #### M 300.4600, L400.0001, M300.4500 #### [facility] [address] [place], [address] AST [Catalytic activity/Vol] 41 U/L High <=37 [facility] Comment on above: Performed By: #### M 300.4600, L400.0001, M300.4500 #### [facility] [address] [place], [address] Bilirubin [Mass/Vol] 0.73 mg/dL Normal 0.00-1.30 [facility] Comment on above: Performed By: #### M 300.4600, L400.0001, M300.4500 #### [facility] [address] [place], [address] BUN/CRE 27.5 RATIO High 10-20 [facility] Comment on above: Performed By: #### M 300.4600, L400.0001, M300.4500 #### [facility] [address] [place], [address] Calcium [Mass/Vol] 8.9 mg/dL Normal 7.6-11.0 [facility] Comment on above: Performed By: #### M 300.4600, L400.0001, M300.4500 #### [facility] [address] [place], [address] Chloride [Moles/Vol] 98 mmol/L Normal 98-108 [facility] Comment on above: Performed By: #### M 300.4600, L400.0001, M300.4500 #### [facility] [address] [place], [address] CO2 [Moles/Vol] 25.7 mmol/L Normal 21.0-32.0 [facility] Comment on above: Performed By: #### M 300.4600, L400.0001, M300.4500 #### [facility] [address] [place], [address] Creatinine [Mass/Vol] 0.75 mg/dL Normal 0.70-1.20 [facility] Comment on above: Performed By: #### M 300.4600, L400.0001, M300.4500 #### [facility] [address] [place], [address] ECRCL 80.95 ml/min Normal 50-250 [facility] Comment on above: Performed By: #### M 300.4600, L400.0001, M300.4500 #### [facility] [address] [place], [address] GAP 16 High 5-15 [facility] Comment on above: Performed By: #### M 300.4600, L400.0001, M300.4500 #### [facility] [address] [place], [address] GFR/1.73 sq M.predicted among non-blacks MDRD (S/P/Bld) [Vol rate/Area] 89 mL/min/{1.73_m2} Normal >60 [facility] Comment on above: Result Comment: mL/m in/1.73m2 CKD-EPI Creatinine Equation (2020) Performed By: #### M 300.4600, L400.0001, M300.4500 #### [facility] [address] [place], [address] Globulin (S) [Mass/Vol] 3.9 g/dL Normal 2.2-4.2 [facility] Comment on above: Performed By: #### M 300.4600, L400.0001, M300.4500 #### [facility] [address] [place], [address] Glucose [Mass/Vol] 174 mg/dL High 70-99 [facility] [place] Comment on above: Performed By: #### M 300.4600, L400.0001, M300.4500 #### [facility] [address] [place], [address] Potassium [Moles/Vol] 3.9 mmol/L Normal 3.3-5.1 [facility] Comment on above: Performed By: #### M 300.4600, L400.0001, M300.4500 #### [facility] [address] [place], [address] Sodium [Moles/Vol] 139 mmol/L Normal 133-145 [facility] Comment on above: Performed By: #### M 300.4600, L400.0001, M300.4500 #### [facility] [address] [place], [address] T PROT 7.6 g/dL Normal 5.9-8.4 [facility] Comment on above: Performed By: #### M 300.4600, L400.0001, M300.4500 #### [facility] [address] [place], [address] Urea nitrogen [Mass/Vol] 21 mg/dL High 4-19 [facility] Comment on above: Performed By: #### M 300.4600, L400.0001, M300.4500 #### [facility] [address] [place], [address] Consultation - Cardiologyon 09-10-2024 Consultation - Cardiology [facility] Medical Records Department [address] [place] [address] Consultation - Cardiology 09/10/24 0751 MR#: [id number] Acct: [id number] Name: ARTURO PEDERSEN Rep #: [id number] : 1940 83 From: Dallas Muller MD PCP: Dr. Shayne Zaidi MD Status:ADM IN Location: [place] [address] Assessment Plan Assessment/Plan (1) Paroxysmal atrial fibrillation [...] was an occluded right coronary artery with zlzj-iq-jeumm collaterals. * In light of his negative [...] per se. He was apparently sent to [place] emergency room and a chest x-ray that [...] is pleasantly confused but no other problems. [facility] Medical History Atherosclerosis of coronary artery of [place] heart without angina pectoris Prostate CA Stroke [...] mg sublingual (more content not included)... Normal [facility] D-Dimer Quantitative (DVT/PE )on 09-10-2024 D-DIMER QUANT 0.39 FEU/ug/m Normal 0.27-0.49 [facility] Comment on above: Result Comment: NORM AL D-Dimer level (<0.50) indicates no DVT or PE. Performed By: #### M 300.4600, L400.0001, M300.4500 #### [facility] [address] [place], [address] Echo Complete W/ Contraston 09-10-2024 Echo Complete W/ Contrast [facility] Cardiovascular Services [address] [place] [address] Echo Complete W/ Contrast 09/10/24 1001 MR#: [id number] Acct: [id number] Name: ARTURO PEDERSEN Rep #: [id number] : 1940 83 From: Dallas Muller MD Attending Dr: Dr. Aayush Sibley DO Status: A DM IN Ordering Dr: Kristopher Valencia DO Date: 09/10/24 Location: [facility] Sex: M C Admitted: 09/10/24 Reason For [...] systolic pressure is 40 mmHg. Ordering Physician: Kristopehr Valenica Referring Physician: SHAYNE ZAIDI Performed By: Manju Sahu RCS 09/10/24 273 Date Dallas Muller MD CC: Dr. Kristopher Valencia DO; Dr. Shayne Zaidi MD; Dr. Aayush Sibley DO Date Dictated: 09/10/24 1001 Date Transcribed: 09/10/241718 Vice President Of Instruction: Signed Normal [facility] Echocardiogram study reportO rdered By: Dallas Muller on 09-10-2024 Study report [facility] Cardiovascular Services [address] [place] [address] Echo Complete W/ Contrast 09/10/24 1001 MR#: [id number] Acct: [id number] Name: ARTURO PEDERSEN Rep #:[id number] : 1940 83 From: Dallas Moody Attending Dr: Dr. Aayush Sibley, DO Status: ADM IN Ordering Dr: Kristopher Valencia DO Date: 09/10/24 Location: [facility] Sex: M C Admitted: 09/10/24 Reason For [...] ZAIDI Performed By: Manju Sahu RCS 09/10/24 521 Date _ Dallas Muller MD CC: Dr. Kristopher Valencia DO; Dr. Shayne Zaidi MD; Dr. Aayush Sibley DO ~ Date Dictated: 09/10/24 1001 Date Transcribed: 09/10/241718 Vice President Of Instruction: Signed [facility] Work Phone: Electrocardiogram reportOrde red By: Dallas Muller on 09-10-[address] [facility] Cardiovascular Services [address] [place] [address] 12 Lead EKG 09/10/24 0122 MR#: [id number] Acct: [id number] Name: ARTURO PEDERSEN Rep #:[id number] : 1940 83 From: Dallas Muller MD Attending Dr: Dr. Aayush Sibley DO Status: ADM IN Ordering Dr: Kristopher Valencia DO Date: 09/10/24 Location: [facility] Sex: M C Admitted: 09/10/24 Test Reason [...] found Confirmed by RENZO GRAHAM, DALLAS ([id number]), script editor JESUS HERNANDEZ ([id number]) on 09/10/2024 8:29:31 AM Referred By: DR Valencia Confirmed By: DALLAS MULLER MD 09/10/24828 Date _ Dallas Muller MD CC: Dr. Kristopher Valencia DO; Dr. Shayne Zaidi MD; Dr. Aayush Sibley DO ~ Signed [facility] Work Phone: Eosinophil percentageOrdered By: Kristopher Diamond on 09-10-2024 Eosinophils/100 WBC (Bld) 0.0 % 0-5 [facility] Erythrocyte distribution wid th ratioOrdered By: Kristopher Diamond on 09-10-2024 Erythrocyte distribution width (RBC) [Ratio] 13.2 % 11.6-14.6 [facility] Erythrocyte distribution wid th standard deviationOrdered By: Kristopher Diamond on 09-10-2024 Erythrocyte distribution width (RBC) [Ratio] 47.6 fl High 35.1-43.9 [facility] Folate [Mass/volume] in Seru m or PlasmaOrdered By: Kristopher Diamond on 09-10-2024 Folate [Mass/Vol] 7.94 ng/mL 4.60-34.80 [facility] Comment on above: Hemolysis, Results w ill be affected, Requires Recollection. Folates,Serum (Folic Acid)on 09-10-2024 FOLATES,SERUM 7.94 ng/mL Normal 4.60-34.80 [facility] Comment on above: Order Comment: N Result Comment: Hemo lysis, Results will be affected, Requires Recollection. Performed By: #### M 300.4600, L400.0001, M300.4500 #### [facility] [address] [place], [address] H AND P Exam - Hospitaliston 09-10-2024 H&P Exam - Hospitalist [facility] Medical Records Department [address] [place] [address] H P Exam - Hospitalist 09/10/24 0118 MR#: [id number] Acct: [id number] Name: ARTURO PEDERSEN Rep #: [id number] : 1940 83 From: Kristopher Valencia DO PCP: Dr. Shayne Zaidi MD Status:ADM IN Location: [place] [address] HPI - General General Date of Admission: [...] apnea; on CPAP, CAD; s/p non-ST elevation [place] with subsequent CABG x 2 (1992) and [...] hours as needed who was transferred from [place] ER with complaints of shortness of breath, [...] dysuria, hematuria, headache, confusion or rash. At [place] ER he was noted to have a [...] is expected to extend beyond 2 midnights. [facility] Medical History Atherosclerosis of coronary artery of [place] heart without angina pectoris Prostate CA Stroke [...] 0.3 mg (more content not included)... Normal [facility] Hematocrit Auto (Bld) [Volum e fraction]Ordered By: Kristopher Diamond on 09-10-2024 Hematocrit (Bld) [Volume fraction] 44.1 % 40-54 [facility] Hemoglobin A1con 09-10-2024 HbA1c (Bld) [Mass fraction] 5.5 % Normal <=5.6 [facility] Comment on above: Result Comment: Norm al < 5.7 % Prediabetic 5.7 - 6.4 % Diabetic >or= 6.5 % Please note range changes. Performed By: #### L 088.6830 #### [facility] [address] [place], [address] Hemoglobin A1c percentageOrd ered By: Kristopher Diamond on 09-10-2024 HbA1c (Bld) [Mass fraction] 5.5 % <5.7 [facility] Comment on above: Normal < 5.7 % Predi abetic 5.7 - 6.4 % Diabetic >or= 6.5 % Please note range changes. Hemoglobin measurementOrdere d By: Kristopher Diamond on 09-10-2024 Hemoglobin (Bld) [Mass/Vol] 14.3 g/dL 13.0-16.5 [facility] Immature granulocytes/100 WB C Auto (Bld)Ordered By: Kristopher Diamond on 09-10-2024 Immature granulocytes/100 WBC (Bld) 0.300 % 0.0-0.9 [facility] Comment on above: IG% - Immature Granu locytes (promyelocytes, myelocytes and metamyelocytes) > 1% indicates that a LEFT SHIFT is Present. Ketones Test strip Ql (U)Ord ered By: Kristopher Diamond on 09-10-2024 Ketones Ql (U) Negative Negative [facility] L501.4021on 09-10-2024 Trop T High Sen 8 ng/L Normal <=22 [facility] Comment on above: Performed By: #### M 300.4600, L400.0001, M300.4500 #### [facility] [address] [place], [address] LDL calc ser/plasOrdered By: Kristopher Diamond on 09-10-2024 Cholesterol in LDL [Mass/Vol] 40 mg/dL [facility] Comment on above: Cmaluehdwy=567-373 m g/dL & Higher Czhw=825 mg/dL or greaterFriedwald Equation for LDL-C Laboratory - Chemistry and C hemistry - challengeOrdered By: Kristopher Diamond on 09-10-2024 AST [Catalytic activity/Vol] 41 U/L High <38 [facility] Legionella Antigen Urineon 0 09-10-2024 LEGU URINE, RANDOM Legionella Antigen result interpretation: L pneumo Ag Ur Ql Negative Presumptive negative for Legionella pneumophila serogroup 1 antigen in urine, suggesting no recent or current infection. Legionella Ag, Urine Negative (See interpretation below) Normal [facility] Comment on above: Performed By: #### M 300.4600, L400.0001, M300.4500 #### [facility] [address] [place], [address] Lipid Profileon 09-10-2024 CHOL:HDL 2.30 Normal [facility] Comment on above: Performed By: #### M 300.4600, L400.0001, M300.4500 #### [facility] [address] [place], [address] Cholesterol [Mass/Vol] 85 mg/dL Normal <=200 [facility] Comment on above: Result Comment: Chol esterol level, Desirable <200 mg/dL Borderline high cholesterol 200-239 mg/dL High cholesterol >=240 mg/dL Recommendations of the NCEP Adult Treatment Panel for the following risk-cutoff thresholds for the [place] population. Performed By: #### M 300.4600, L400.0001, M300.4500 #### [facility] [address] [place], [address] Cholesterol in HDL [Mass/Vol] 37 mg/dL Low [facility] Comment on above: Result Comment: Jordana onal Cholesterol Education Program (NCEP) guidelines: <40 mg/dL: Low HDL-cholesterol (major risk factor for CHD) >= 60 mg/dL: High HDL-cholesterol (negative risk factor for CHD) HDL-cholesterol is affected by a number of factors, e.g. smoking, exercise, hormones, sex and age. Performed By: #### M 300.4600, L400.0001, M300.4500 #### [facility] [address] [place], [address] Cholesterol in LDL [Mass/Vol] 40 mg/dL Normal [facility] Comment on above: Result Comment: Bord cnqasc=529-410 mg/dL Higher Clyi=482 mg/dL or greater Friedwald Equation for LDL-C Performed By: #### M 300.4600, L400.0001, M300.4500 #### [facility] [address] [place], [address] Cholesterol in VLDL [Mass/Vol] 8 mg/dL Normal 5-40 [facility] Comment on above: Performed By: #### M 300.4600, L400.0001, M300.4500 #### [facility] [address] [place], [address] Triglyceride [Mass/Vol] 42 mg/dL Normal [facility] Comment on above: Result Comment: The drugs N-Acetylcysteine and Metamizole may falsely depress this assay. Normal range: <150 mg/dL Borderline High: 150-199 mg/dL High: 200-499 mg/dL Very High: >500 mg/dL Performed By: #### M 300.4600, L400.0001, M300.4500 #### [facility] [address] [place], [address] MCV (mean corpuscular volume ) determinationOrdered By: Kristopher Diamond on 09-10-2024 MCV (RBC) [Entitic vol] 95.7 fL High 80-94 [facility] Magnesiumon 09-10-2024 Magnesium [Mass/Vol] 2.1 mg/dL Normal 1.5-2.2 [facility] Comment on above: Performed By: #### M 300.4600, L400.0001, M300.4500 #### [facility] [address] [place], [address] Magnesium measurement (mass/ volume)Ordered By: Kristopher Diamond on 09-10-2024 Magnesium (Unsp spec) [Mass/Vol] 2.1 mg/dL 1.5-2.2 [facility] Mean corpuscular hemoglobin (MCH) determinationOrdered By: Krisotpher Diamond on 09-10-2024 MCH (RBC) [Entitic mass] 31.0 pg 27.0-32.0 [facility] Mean corpuscular hemoglobin concentration (MCHC) determinationOrdered By: Kristopher Diamond on 09-10-2024 MCHC (RBC) [Mass/Vol] 32.4 g/dL 32-36 [facility] Mean platelet volume determi nationOrdered By: Kristopher Diamond on 09-10-2024 Platelet mean volume (Bld) [Entitic vol] 9.2 fL 6.2-12.0 [facility] Microscopic analysis of urin e for red blood cells (RBC)Ordered By: Kristopher Diamond on 09-10-2024 Microscopic analysis of urine for red blood cells (RBC) 0-5 SEEN /hpf 0-5 [facility] Monocyte percentageOrdered B y: Kristopher Diamond on 09-10-2024 Monocytes/100 WBC (Bld) 2.8 % 0-10 [facility] Mucus LM Ql (Urine sed)Order ed By: Kristopher Diamond on 09-10-2024 Mucus Ql (Urine sed) 0 SEEN /hpf [facility] Natriuretic peptide.B prohor dianne N-Terminal [Mass/volume] in Serum or PlasmaOrdered By: Kristopher Diamond on 09-10-2024 Natriuretic peptide.B prohormone N-Terminal [Mass/Vol] 3825 pg/mL High <1800 [facility] Comment on above: Heart Failure Unlike ly: < 300 pg/mLHeart Failure Likely< 50 Years: > 450 pg/mL50-75 Years: > 900 pg/mL>75 Years: > 1800 pg/mL Neutrophil percentageOrdered By: Kristopher Diamond on 09-10-2024 Neutrophils/100 WBC (Bld) 94.5 % High 47-70 [facility] Nitrite Test strip Ql (U)Ord ered By: Kristopher Diamond on 09-10-2024 Nitrite Ql (U) Negative Negative [facility] No Panel InformationOrdered By: Kristopher Diamond on 09-10-2024 Blood Gas Sample Site Not entered [facility] Blood Gas Specimen Type ARIEL [facility] Oxygen Delivery Device Cannula [facility] Nucleated red blood cell per centageOrdered By: Kristopher Diamond on 09-10-2024 Nucleated RBC/100 WBC (Bld) [Ratio] 0 % 0-5 [facility] Phosphoruson 09-10-2024 Phosphate [Mass/Vol] 2.7 mg/dL Normal 2.7-4.5 [facility] Comment on above: Performed By: #### M 300.4600, L400.0001, M300.4500 #### [facility] [address] [place], [place], [address] Platelet countOrdered By: Matthieu Diamond on 09-10-2024 Platelets (Bld) [#/Vol] 224 10*3/uL 150-450 [facility] Pro- Brain NATRIURETIC PEPTI Angel 09-10-2024 Natriuretic peptide B (Bld) [Mass/Vol] 3825 pg/mL High <=1800 [facility] Comment on above: Result Comment: Hear t Failure Unlikely: < 300 pg/mL Heart Failure Likely < 50 Years: > 450 pg/mL 50-75 Years: > 900 pg/mL >75 Years: > 1800 pg/mL Performed By: #### M 300.4600, L400.0001, M300.4500 #### [facility] [address] [place], [place], [address] Protein Test strip Ql (U)Ord ered By: Kristopher Diamond on 09-10-2024 Protein Ql (U) Negative Negative [facility] Prothrombin Time w/INRon INR Coag (PPP) [Relative time] 1.5 {INR} Normal [facility] Comment on above: Performed By: #### L 503.0106, L506.0200, L501.4021, L300.3900, L500.4100, L503.7505, L300.8000, L500.4050, L100.0100, L501.2300, L501.9520, L501.5200 #### [facility] [address] [place], [place], [id number] PT Coag (PPP) [Time] 18.7 s High 11.7-14.9 [facility] Comment on above: Performed By: #### L 503.0106, L506.0200, L501.4021, L300.3900, L500.4100, L503.7505, L300.8000, L500.4050, L100.0100, L501.2300, L501.9520, L501.5200 #### [facility] [address] [place], [place], [id number] RBC Auto (Bld) [#/Vol]Ordere d By: Kristopher Diamond on 09-10-2024 RBC (Bld) [#/Vol] 4.61 10*6/uL 4.6-6.2 [facility] RESPIRATORY PANEL MOLECULARo n 09-10-2024 RP PANEL [...] Not Detected RSV B Not Detected Normal [facility] Comment on above: Performed By: #### M 300.4600, L400.0001, M300.4500 #### [facility] [address] [place], [address] Respiratory pathogens detect ion panel by molecular detection methodOrdered By: Kristopher Diamond on 09-10-2024 Respiratory pathogens DNA and RNA panel NIURKA+probe (Resp) [facility] Screening total cholesterol/ high density lipoprotein (HDL) cholesterol ratioOrdered By: Kristopher Diamond on 09-10-2024 Cholesterol.total/Choles terol in HDL [Mass ratio] 2.30 {ratio} [facility] Serum globulin measurementOr dered By: Kristopher Diamond on 09-10-2024 Globulin (S) [Mass/Vol] 3.9 g/dL 2.2-4.2 [facility] Serum or plasma alanine castillo otransferase (ALT) measurementOrdered By: Kristopher Diamond on 09-10-2024 ALT [Catalytic activity/Vol] 34 U/L <47 [facility] Serum or plasma albumin regan urement (mass/volume)Ordered By: Kristopher Diamond on 09-10-2024 Albumin [Mass/Vol] 3.7 g/dL 3.4-4.8 [facility] Serum or plasma albumin/glob ulin mass ratioOrdered By: Kristopher Diamond on 09-10-2024 Albumin/Globulin [Mass ratio] 0.9 {ratio} 0.9-2.4 [facility] Serum or plasma alkaline effie sphatase measurementOrdered By: Kristopher Diamond on 09-10-2024 ALP [Catalytic activity/Vol] 199 U/L High 40-129 [facility] Serum or plasma cholesterol in HDL measurement (mass/volume)Ordered By: Kristopher Diamond on 09-10-2024 Cholesterol in HDL [Mass/Vol] 37 mg/dL Low >40 [facility] Comment on above: National Cholesterol Education Program (NCEP) guidelines:<40 mg/dL: Low HDL-cholesterol (major risk factor for CHD)>= 60 mg/dL: High HDL-cholesterol (negative risk factor for CHD)HDL-cholesterol is affected by a number of factors, e.g. smoking, exercise, hormones, sex and age. Serum or plasma cholesterol measurement (mass/volume)Ordered By: Kristopher Diamond on 09-10-2024 Cholesterol [Mass/Vol] 85 mg/dL <201 [facility] Comment on above: Cholesterol level, D esirable <200 mg/dLBorderline high cholesterol 200-239 mg/dLHigh cholesterol >=240 mg/dLRecommendations of the NCEP Adult Treatment Panel for the following risk-cutoff thresholds for the [place] population. Squamous epithelial cells de tection in urine sediment by light microscopyOrdered By: Kristopher Diamond on 09-10-2024 Epithelial cells.squamous LM Ql (Urine sed) 0-5 SEEN /hpf 0-5 [facility] Strep pneumoniae Antig(UR,CS F)on 09-10-2024 STPAG Strep pneumoniae Antig(UR,CSF) Strep pneumoniae Antig(UR,CSF) [] Negative Urine Presumptive negative for pneumococcal pneumonia, suggesting no current or recent pneumococcal infection. Infection due to S pneumoniae cannot be ruled out since the antigen present in the sample may be below the detection limit of the test. Strep pneumo Test Negative URINE (See interpretation below) Normal [facility] Comment on above: Performed By: #### M 300.9810, L400.0001, M300.4500 #### [facility] [place], [address] TSH DL <= 0.005 mIU/L QnOrde red By: Kristopher Diamond on 09-10-2024 TSH Qn 0.518 uIU/mL 0.300-4.200 [facility] Thyroid Stim Hormone (TSH)on 09-10-2024 TSH 0.518 uIU/mL Normal 0.300-4.200 [facility] Comment on above: Performed By: #### M 300.4600, L400.0001, M300.4500 #### [facility] [address] [place], [address] Total proteinOrdered By: Peter Diamond on 09-10-2024 Protein [Mass/Vol] 7.6 g/dL 5.9-8.4 [facility] Triglycerides measurementOrd ered By: Kristopher Diamond on 09-10-2024 Triglyceride [Mass/Vol] 42 mg/dL <199 [facility] Comment on above: The drugs N-Acetylcy steine and Metamizole may falsely depress this assay. Normal range: <150 mg/dLBorderline High: 150-199 mg/dLHigh: 200-499 mg/dLVery High: >500 mg/dL Troponin T HS 2 HRon 025 Trop T High Sen 7 ng/L Normal <=22 [facility] Comment on above: Performed By: #### M 300.4600, L400.0001, M300.4500 #### [facility] [address] [place], [address] Troponin T HS 4 HRon 025 Trop T High Sen 6 ng/L Normal <=22 [facility] Comment on above: Performed By: #### L 499.0043 #### [facility] [address] [place], [address] Troponin T.cardiac [Mass/vol ume] in Serum or Plasma by High sensitivity methodOrdered By: Kristopher Diamond on 09-10-2024 Troponin T.cardiac High sensitivity method [Mass/Vol] 6 ng/L <22 [facility] Troponin T.cardiac High sensitivity method [Mass/Vol] 7 ng/L <22 [facility] Troponin T.cardiac High sensitivity method [Mass/Vol] 8 ng/L <22 [facility] Urinalysis, Completeon 09-10 BACTERIA 1+ /hpf Normal None Seen [facility] Comment on above: Order Comment: Urine , Random Performed By: #### M 300.4600, L400.0001, M300.4500 #### [facility] [address] [place], [address] EPI,SQUAMOUS 0-5 SEEN Normal 0-5 [facility] Comment on above: Order Comment: Urine , Random Performed By: #### M 300.4600, L400.0001, M300.4500 #### [facility] [address] [place], [address] RBC 0-5 SEEN Normal 0-5 [facility] Comment on above: Order Comment: Urine , Random Performed By: #### M 300.4600, L400.0001, M300.4500 #### [facility] [address] [place], [address] BILIRUBIN URINE Negative Normal Negative [facility] Comment on above: Order Comment: Urine , Random Performed By: #### M 300.4600, L400.0001, M300.4500 #### [facility] [address] [place], [address] Clarity (U) Clear Normal Clear [facility] Comment on above: Order Comment: Urine , Random Performed By: #### M 300.4600, L400.0001, M300.4500 #### [facility] [address] [place], [address] Color (U) Yellow Normal Yellow [facility] Comment on above: Order Comment: Urine , Random Performed By: #### M 300.4600, L400.0001, M300.4500 #### [facility] [address] [place], [address] GLUCOSE, UR Normal Normal Normal [facility] Comment on above: Order Comment: Urine , Random Performed By: #### M 300.4600, L400.0001, M300.4500 #### [facility] [address] [place], [address] KETONE UR Negative Normal Negative [facility] Comment on above: Order Comment: Urine , Random Performed By: #### M 300.4600, L400.0001, M300.4500 #### [facility] [address] [place], [address] LEUK ESTERASE Negative Normal Negative [facility] Comment on above: Order Comment: Urine , Random Performed By: #### M 300.4600, L400.0001, M300.4500 #### [facility] [address] [place], [address] Nitrite Ql (U) Negative Normal Negative [facility] Comment on above: Order Comment: Urine , Random Performed By: #### M 300.4600, L400.0001, M300.4500 #### [facility] [address] [place], [address] OCCULT BLOOD-UR 10 /ul Abnormal Negative [facility] Comment on above: Order Comment: Urine , Random Performed By: #### M 300.4600, L400.0001, M300.4500 #### [facility] [address] [place], [address] pH UR 6.0 Normal 5.0 - 8.0 [facility] Comment on above: Order Comment: Urine , Random Performed By: #### M 300.4600, L400.0001, M300.4500 #### [facility] [address] [place], [address] PROT DIPSTX Negative Normal Negative [facility] Comment on above: Order Comment: Urine , Random Performed By: #### M 300.4600, L400.0001, M300.4500 #### [facility] [address] [place], [address] SP.GR. DIPSTX 1.010 Normal 1.002-1.030 [facility] Comment on above: Order Comment: Urine , Random Performed By: #### M 300.4600, L400.0001, M300.4500 #### [facility] [address] [place], [address] UROBILI Normal Normal Normal [facility] Comment on above: Order Comment: Urine , Random Performed By: #### M 300.4600, L400.0001, M300.4500 #### [facility] [address] [place], [address] Mucus Ql (Urine sed) 0 SEEN Normal [facility] Comment on above: Order Comment: Urine , Random Performed By: #### M 300.4600, L400.0001, M300.4500 #### [facility] [address] [place], [address] WBC 0 SEEN Normal 0-5 [facility] Comment on above: Order Comment: Urine , Random Performed By: #### M 300.4600, L400.0001, M300.4500 #### [facility] [address] [place], [address] Urine Legionella pneumophila antigen detectionOrdered By: Kristopher Diamond on 09-10-2024 L. pneumophila Ag Ql (U) [facility] Urine clarityOrdered By: Peter Diamond on 09-10-2024 Clarity (U) Clear Clear [facility] Urine color determinationOrd ered By: Kristopher Daimond on 09-10-2024 Color (U) Yellow Yellow [facility] Urine glucose detectionOrder ed By: Kristopher Diamond on 09-10-2024 Glucose Ql (U) Normal mg/dl Normal [facility] Urine leukocyte esterase det ection by dipstickOrdered By: Kristopher Diamond on 09-10-2024 Leukocyte esterase Test strip Ql (U) Negative Negative [facility] Urine pHOrdered By: Kristopher kaufman on 09-10-2024 pH (U) 6.0 [pH] 5.0 - 8.0 [facility] Urine sediment bacteria coun t by microscopy (number/high power field)Ordered By: Kristopher Diamond on 09-10-2024 Bacteria LM.HPF (Urine sed) [#/Area] 1 /[HPF] None Seen [facility] Urine specific gravity measu rementOrdered By: Kristopher Diamond on 09-10-2024 Specific gravity (U) [Rel density] 1.010 1.002-1.030 [facility] Urine urobilinogen measureme ntOrdered By: Kristopher Diamond on 09-10-2024 Urobilinogen Ql (U) Normal mg/dl Normal [facility] Venous Blood Gason Blood Gas Type ARIEL Normal [facility] Comment on above: Performed By: #### L 9000.0810 #### [facility] [address] [place], [address] CO2 [Moles/Vol] 37 mmol/L High 23-33 [facility] Comment on above: Performed By: #### L 9000.0810 #### [facility] [address] [place], [address] FI02 3.0 Normal [facility] Comment on above: Performed By: #### L 9000.0810 #### [facility] [address] [place], [address] HCO3 (Bld) [Moles/Vol] 35 mmol/L High 22-26 [facility] Comment on above: Performed By: #### L 9000.0810 #### [facility] [address] [place], [address] O2 Delivery Dev Cannula Normal [facility] Comment on above: Performed By: #### L 9000.0810 #### [facility] [address] [place], [address] SITE Not entered Normal [facility] Comment on above: Performed By: #### L 9000.0810 #### [facility] [address] [place], [address] VBG BE 10 mmol/L High -1.0-3.5 [facility] Comment on above: Performed By: #### L 9000.0810 #### [facility] [address] [place], [address] VBG pCO2 54.8 mmHg High 41-51 [facility] Comment on above: Performed By: #### L 9000.0810 #### [facility] [address] [place], [address] VBG pH 7.41 Normal 7.32-7.42 [facility] Comment on above: Performed By: #### L 9000.0810 #### [facility] [address] [place], [address] VBG PO2 68 mmHg High 25-40 [facility] Comment on above: Performed By: #### L 9000.0810 #### [facility] [address] [place], [address] VBG SO2 93 High 50-70 [facility] Comment on above: Performed By: #### L 9000.0810 #### [facility] [address] [place], [address] Venous blood base excess rodolfo surementOrdered By: Kristopher Diamond on 09-10-2024 Base excess Calc (BldV) [Moles/Vol] 10 mmol/L High -1.0-3.5 [facility] Venous blood bicarbonate rodolfo surementOrdered By: Kristopher Diamond on 09-10-2024 HCO3 (Bld) [Moles/Vol] 35 mmol/L High 22-26 [facility] Venous blood oxygen saturati on measurementOrdered By: Kristopher Diamond on 09-10-2024 Oxygen saturation in Blood 93 % High 50-70 [facility] Venous blood pH measurementO rdered By: Kristopher Diamond on 09-10-2024 pH (BldV) 7.41 [pH] 7.32-7.42 [facility] Venous blood partial pressur e of carbon dioxide measurementOrdered By: Kristopher Diamond on 09-10-2024 CO2 (BldV) [Partial pressure] 54.8 mm[Hg] High 41-51 [facility] Venous blood partial pressur e of oxygen measurementOrdered By: Kristopher Diamond on 09-10-2024 Oxygen (BldV) [Partial pressure] 68 mm[Hg] High 25-40 [facility] Vitamin B12on 09-10-2024 Cobalamin (Vitamin B12) [Mass/Vol] 515 pg/mL Normal 180-914 [facility] Comment on above: Performed By: #### M 300.4600, L400.0001, M300.4500 #### [facility] [address] [place], [place] [address], [address] Vitamin B12 ser/plasOrdered By: Kristopher Diamond on 09-10-2024 Cobalamin (Vitamin B12) [Mass/Vol] 515 pg/mL 180-914 [facility] White blood cell (WBC) count Ordered By: Kristopher Diamond on 09-10-2024 WBC (Bld) [#/Vol] 10.8 10*3/uL 4.4-11.0 [facility] White blood cell countOrdere d By: Kristopher Diamond on 09-10-2024 White blood cell count 0 SEEN /hpf 0-5 [facility] ALLIED HEALTHon 09-09-2024 ALLIED HEALTH HNO ID: [id number] Author: AGNES BRIZUEAL RT(Lillie) Service: ? Author Type: Technologist Type: [...] PATIENT PRESENTS WITH AN IMPLANTABLE OR ATTACHED WAFER MACHINE OPERATOR: No RADIOLOGY DEPARTMENT: General X-ray: Exam(s) Completed: Chest X-Ray PERIPHERAL IV DATA: Not applicable SIGNED BY: Agnes Brizuela, RT(R) September 09, 2024 7:49 PM Normal [facility] CBC W Auto Differential pane l (Bld)on 09-09-2024 Basophils (Bld) [#/Vol] 0.03 10*3/uL Normal <0.11 [facility] Comment on above: Order Comment: Speci men Type: BLOOD SPECIMENOrdering Facility: [facility] Address: [address] [place] [address] Performed By: #### 5 7021-8 ####[facility] [place] LABCLIA [id number] [place] [id number] [place] Basophils/100 WBC (Bld) 0.3 % Normal [facility] Comment on above: Order Comment: Speci men Type: BLOOD SPECIMENOrdering Facility: [facility] Address: [address] [place] [address] Performed By: #### 5 7021-8 ####[facility] [place] LABCLIA [id number] [place] [address] [place] Differential cell count method Nom (Bld) Auto Normal [facility] Comment on above: Order Comment: Speci men Type: BLOOD SPECIMENOrdering Facility: [facility] Address: [address] [place] [address] Performed By: #### 5 7021-8 ####[facility] [place] LABCLIA [id number] [place] [address] [place] Eosinophils (Bld) [#/Vol] 0.08 10*3/uL Normal <0.46 [facility] Comment on above: Order Comment: Speci men Type: BLOOD SPECIMENOrdering Facility: [facility] Address: [address] [place] [address] Performed By: #### 5 7021-8 ####[facility] [place] LABCLIA [id number] [facility] [place] [address] [place] Eosinophils/100 WBC (Bld) 0.8 % Normal [facility] Comment on above: Order Comment: Speci men Type: BLOOD SPECIMENOrdering Facility: [facility] Address: [address] [place] [address] Performed By: #### 5 7021-8 ####[facility] [place] LABCLIA [id number] [facility] [place] [place] [address] [place] Erythrocyte distribution width (RBC) [Ratio] 13.2 % Normal 11.5-15.0 [facility] Comment on above: Order Comment: Speci men Type: BLOOD SPECIMENOrdering Facility: [facility] Address: [address] [place] [address] Performed By: #### 5 7021-8 ####[facility] [id number] [place] [address] [facility] Hematocrit (Bld) [Volume fraction] 43.0 % Normal 39.0-51.0 [facility] Comment on above: Order Comment: Speci men Type: BLOOD SPECIMENOrdering Facility: [facility] Address: [address] [place] [address] Performed By: #### 5 7021-8 ####[facility] [place] LABCLIA [id number] [place] [address] [place] Hemoglobin (Bld) [Mass/Vol] 13.4 g/dL Normal 13.0-17.0 [facility] Comment on above: Order Comment: Speci men Type: BLOOD SPECIMENOrdering Facility: [facility] Address: [address] [place] [address] Performed By: #### 5 7021-8 ####[facility] [place] LABCLIA [id number] [facility] [place] [address] [place] Immature granulocytes (Bld) [#/Vol] 0.03 10*3/uL Normal <0.10 [facility] Comment on above: Order Comment: Speci men Type: BLOOD SPECIMENOrdering Facility: [facility] Address: [address] [place] [address] Performed By: #### 5 7021-8 ####[facility] [place] LABCLIA [id number] [place] [address] [facility] Immature granulocytes/100 WBC (Bld) 0.3 % Normal [facility] Comment on above: Order Comment: Speci men Type: BLOOD SPECIMENOrdering Facility: [facility] Address: [address] [place] [address] Performed By: #### 5 7021-8 ####[facility] [place] LABCLIA [id number] [place] [address] [place] [facility] Lymphocytes (Bld) [#/Vol] 0.65 10*3/uL Low 1.00-4.00 [facility] Comment on above: Order Comment: Speci men Type: BLOOD SPECIMENOrdering Facility: [facility] Address: [address] [place] [address] Performed By: #### 5 7021-8 ####[facility] [place] LABCLIA [id number] [address] Lymphocytes/100 WBC (Bld) 6.3 % Normal [facility] Comment on above: Order Comment: Speci men Type: BLOOD SPECIMENOrdering Facility: [facility] Address: [address] [place] [address] Performed By: #### 5 7021-8 ####[facility] [place] LABCLIA [id number] [place] [address] [place] MCH (RBC) [Entitic mass] 30.7 pg Normal 26.0-34.0 [facility] Comment on above: Order Comment: Speci men Type: BLOOD SPECIMENOrdering Facility: [facility] Address: [address] [place] [address] Performed By: #### 5 7021-8 ####[facility] [place] LABCLIA [id number] [facility] [place] [address] [place] MCHC (RBC) [Mass/Vol] 31.2 g/dL Normal 30.5-36.0 [facility] Comment on above: Order Comment: Speci men Type: BLOOD SPECIMENOrdering Facility: [facility] Address: [address] [place] [address] Performed By: #### 5 7021-8 ####[facility] [place] LABCLIA [id number] [place] [address] [facility] MCV (RBC) [Entitic vol] 98.4 fL Normal 80.0-100.0 A [facility] Comment on above: Order Comment: Speci men Type: BLOOD SPECIMENOrdering Facility: [facility] Address: [address] [place] [address] Performed By: #### 5 7021-8 ####[facility] LABCLIA [id number] [place] [address] [place] Monocytes (Bld) [#/Vol] 0.94 10*3/uL High <0.87 [facility] Comment on above: Order Comment: Speci men Type: BLOOD SPECIMENOrdering Facility: [facility] Address: [address] [place] [address] Performed By: #### 5 7021-8 ####NDJ[facility] [place] LABCLIA [id number] [place] [address] [facility] Monocytes/100 WBC (Bld) 9.1 % Normal A [facility] Comment on above: Order Comment: Speci men Type: BLOOD SPECIMENOrdering Facility: [facility] Address: [address] [place] [address] Performed By: #### 5 7021-8 ####[facility] [place] LABCLIA [id number] [place] [address] [facility] [place] Neutrophils (Bld) [#/Vol] 8.55 10*3/uL High 1.45-7.50 [facility] Comment on above: Order Comment: Speci men Type: BLOOD SPECIMENOrdering Facility: [facility] Address: [address] [place] [address] Performed By: #### 5 7021-8 ####[facility] [place] LABCLIA [id number] [place] [address] [place] Neutrophils/100 WBC (Bld) 83.2 % Normal [facility] Comment on above: Order Comment: Speci men Type: BLOOD SPECIMENOrdering Facility: [facility] Address: [address] [place] [address] Performed By: #### 5 7021-8 ####[facility] [place] LABCLIA [id number] [place] [address] [place] Nucleated RBC (Bld) [#/Vol] Normal [facility] Comment on above: Order Comment: Speci men Type: BLOOD SPECIMENOrdering Facility: [facility] Address: [address] [place] [address] Performed By: #### 5 7021-8 ####[facility] [place] LABCLIA [id number] [place] [address] [place] Nucleated RBC/100 WBC (Bld) [Ratio] Normal [facility] Comment on above: Order Comment: Speci men Type: BLOOD SPECIMENOrdering Facility: [facility] Address: [address] [place] [address] Performed By: #### 5 7021-8 ####[facility] [place] LABCLIA [id number] [place] [address] [place] Platelet mean volume (Bld) [Entitic vol] 9.4 fL Normal 9.0-12.7 [facility] Comment on above: Order Comment: Speci men Type: BLOOD SPECIMENOrdering Facility: [facility] Address: [address] [place] [address] Performed By: #### 5 7021-8 ####[facility] [place] LABCLIA [id number] [place] [address] [place] Platelets (Bld) [#/Vol] 219 10*3/uL Normal 150-400 [facility] Comment on above: Order Comment: Speci men Type: BLOOD SPECIMENOrdering Facility: [facility] Address: [address] [place] [address] Performed By: #### 5 7021-8 ####[facility] LAB[facility] [id number] [place] [address] [place] RBC (Bld) [#/Vol] 4.37 10*6/uL Normal 4.20-6.00 [facility] Comment on above: Order Comment: Speci men Type: BLOOD SPECIMENOrdering Facility: [facility] Address: [address] [place] [address] Performed By: #### 5 7021-8 ####[facility] LABCLIA [id number] [place] [address] [facility] WBC (Bld) [#/Vol] 10.28 10*3/uL Normal 3.70-11.00 [facility] Comment on above: Order Comment: Speci men Type: BLOOD SPECIMENOrdering Facility: [facility] Address: [address] [place] [address] Performed By: #### 5 7021-8 ####[facility] LABCLIA [id number] [place] [address] [facility] Comprehensive metabolic 2000 panelon 09-09-2024 Albumin [Mass/Vol] 3.4 g/dL Low 3.9-4.9 [facility] Comment on above: Order Comment: Speci men Type: BLOOD SPECIMEN [facility] Address: [address] [place] [address] Performed By: #### 1 9123-9, 68451-3, 83737-6 #### [facility] [place] [facility] CLIA [id number] [address] [place] [address] [facility] ALP [Catalytic activity/Vol] 182 U/L High 38-113 [facility] Comment on above: Order Comment: Speci men Type: BLOOD SPECIMEN [facility] Address: [address] [place] [address] Performed By: #### 1 9123-9, 87699-0, 77428-4 #### [facility] [place] [facility] CLIA [id number] [address] [place] [address] [place] ALT With P-5'-P [Catalytic activity/Vol] 26 U/L Normal 10-54 [facility] Comment on above: Order Comment: Speci men Type: BLOOD SPECIMEN [facility] Address: [address] [place] [address] Performed By: #### 1 9123-9, 50334-3, 03807-1 #### [facility] [place] [facility] CLIA [id number] [address] [place] [address] [place] Anion gap [Moles/Vol] 10 mmol/L Normal 8-15 [facility] Comment on above: Order Comment: Speci men Type: BLOOD SPECIMEN [facility] Address: [address] [place] [address] Performed By: #### 1 9123-9, 88531-7, 39337-0 #### [facility] [place] [facility] CLIA [id number] [address] [place] [address] [facility] [place] AST With P-5'-P [Catalytic activity/Vol] 32 U/L Normal 14-40 [facility] Comment on above: Order Comment: Speci men Type: BLOOD SPECIMEN [facility] Address: [address] [place] [address] Performed By: #### 1 9123-9, 53780-3, 45996-3 #### [facility] [place] [facility] CLIA [id number] [address] [place] [address] [place] Bilirubin [Mass/Vol] 0.8 mg/dL Normal 0.2-1.3 [facility] Comment on above: Order Comment: Speci men Type: BLOOD SPECIMEN [facility] Address: [address] [place] [address] Performed By: #### 1 9123-9, 92173-3, 46086-2 #### [facility] [place] [facility] CLIA [id number] [address] [place] [address] [place] Calcium [Mass/Vol] 8.7 mg/dL Normal 8.5-10.2 [facility] Comment on above: Order Comment: Speci men Type: BLOOD SPECIMEN [facility] Address: [address] [place] [address] Performed By: #### 1 9123-9, 16292-1, 91289-3 #### [facility] [place] [facility] CLIA [id number] [address] [place] [address] [place] Chloride [Moles/Vol] 100 mmol/L Normal 98-107 [facility] Comment on above: Order Comment: Speci men Type: BLOOD SPECIMEN [facility] Address: [address] [place] [address] Performed By: #### 1 9123-9, 44945-0, 53445-3 #### [facility] [place] [facility] CLIA [id number] [address] [place] [address] [place] CO2 [Moles/Vol] 29 mmol/L Normal 22-30 [facility] Comment on above: Order Comment: Speci men Type: BLOOD SPECIMEN [facility] Address: [address] [place] [address] Performed By: #### 1 9123-9, 27326-1, 34590-0 #### [facility] [place] [facility] CLIA [id number] [address] [place] [address] [place] Creatinine [Mass/Vol] 0.70 mg/dL Low 0.73-1.22 [facility] Comment on above: Order Comment: Speci men Type: BLOOD SPECIMEN [facility] Address: [address] [place] [address] Performed By: #### 1 9123-9, 73494-3, 59221-0 #### [facility] [place] [facility] CLIA [id number] [address] [place] [address] [place] eGFRcr SerPlBld CKD-EPI 2020 91 mL/min/1.73m??? Normal >=60 [facility] Comment on above: Order Comment: Kika bryant Type: BLOOD SPECIMEN Ordering Facility: [facility] Address: [address] [place] [address] Result Comment: Calista mated Glomerular Filtration Rate [...] actual GFR. Performed By: #### 1 9123-9, 34304-4, 10862-7 #### [facility] CLIA [id number] [address] [place] [address] [place] Glucose [Mass/Vol] 156 mg/dL High 74-99 [facility] Comment on above: Order Comment: Kika bryant Type: BLOOD SPECIMEN Ordering Facility: [facility] Address: [address] [place] [address] Result Comment: The [place] Diabetes Association (ADA) provides guidance for cutoff [...] Standards of Medical Care in Diabetes 2016, [place] Diabetes Association. Diabetes Care. 2016.39(Suppl 1). Performed By: #### 1 9123-9, 59927-5, 34160-8 #### [facility] CL[facility] [id number] [address] [place] [address] [place] Potassium [Moles/Vol] 3.8 mmol/L Normal 3.7-5.1 [facility] Comment on above: Order Comment: Speci men Type: BLOOD SPECIMEN Ordering Facility: [facility] Address: [address] [place] [address] Performed By: #### 1 9123-9, 35435-9, 00964-5 #### [facility] CLIA [id number] [address] [place] [address] [place] Protein [Mass/Vol] 7.1 g/dL Normal 6.3-8.0 [facility] Comment on above: Order Comment: Speci men Type: BLOOD SPECIMEN Ordering Facility: [facility] Address: [address] [place] [address] Performed By: #### 1 9123-9, 14723-5, 80436-5 #### [facility] CLIA [id number] [address] [place] [address] [place] Sodium [Moles/Vol] 139 mmol/L Normal 136-144 [facility] Comment on above: Order Comment: Speci men Type: BLOOD SPECIMEN Ordering Facility: [facility] Address: [address] [place] [address] Performed By: #### 1 9123-9, 29805-4, 08409-4 #### [facility] CLIA [id number] [address] [place] [address] [place] Urea nitrogen [Mass/Vol] 22 mg/dL Normal 9-24 [facility] Comment on above: Order Comment: Speci men Type: BLOOD SPECIMEN Ordering Facility: [facility] Address: [address] [place] [address] Performed By: #### 1 9123-9, 82104-4, 57745-3 #### [facility] CLIA [id number] [address] [place] [address] [place] ECG COMPLETEon 09-09-2024 ECG COMPLETE Ventricular Rate : 1 19 BPM QRS Duration : 70 ms Q-T Interval : 318 ms QTC Calculation(Bazett) : 447 ms Calculated R [place] : 31 degrees Calculated T [place] : 59 degrees ATRIAL FIBRILLATION WITH RAPID VENTRICULAR RESPONSE NONSPECIFIC T WAVE ABNORMALITY ABNORMAL ECG NO PREVIOUS ECGS AVAILABLE Confirmed by MD MEADE VINAYAK ([id number]) on 09/13/2024 8:25:28 AM NAME : ARTURO PEDERSEN PID : [id number] : 1940 Gender : Male Race : ORD : [id number] Procedure Date : Sep 09 2024 18:51:28 Edit Date : Sep 13 2024 08:25:32 Diagnosis: ATRIAL FIBRILLATION WITH RAPID VENTRICULAR RESPONSE NONSPECIFIC T WAVE ABNORMALITY ABNORMAL ECG NO PREVIOUS ECGS AVAILABLE Confirmed by MD MEADE VINAYAK ([id number]) on 09/13/2024 8:25:28 AM Test Reason : Chest Pain Location : 191 : [facility] ED Overread By : MD MEADE VINAYAK Edited By : MD MEADE VINAYAK Referred By : , Acquired by : NINI MARTINEZ [facility] ED NOTEon 09-09-2024 ED NOTE HNO ID: [id number] Author: ANICETO VELAZQUEZ, FREIDA Service: Emergency Medicine Author Type: Registered Nurse Type: ED Notes Filed: 09/09/2024 23:36 Note Text: [facility] here for transport. Report given and care transferred [facility] ED NOTE HNO ID: [id number] Author: ANT LAYTON RN Service: Emergency Medicine Author Type: Registered Nurse Type: ED Notes Filed: 09/09/2024 22:48 Note Text: Accepted Dr Salazar [facility] bed 117 NTN [phone] ETA 60m [facility] ED NOTE HNO ID: [id number] Author: ANT LAYTON, FREIDA Service: Emergency Medicine Author Type: Registered Nurse Type: ED Notes Filed: 09/09/2024 21:28 Note Text: Family requesting admission to [facility] d/t patient [place] PCP and h/o cardiac stents placed at [facility]. Call placed to [facility] nursing gaming floor supervisor [phone], will forward info to hospitalist. Advised that hospitalist has several admissions pending and there will be a delay in acceptance and transfer if accepted. [facility] ED NOTE HNO ID: [id number] Author: DAINA SAMPSON RN Service: ? Author Type: Registered Nurse Type: ED Notes Filed: 09/09/2024 18:54 Note Text: Pt arrives after calling EMS for chest tightness which is resolved upon arrival. Pt reports chest tightness started 2 days ago. Pt reports Shortness of Breath has been worsening recently. Pt has strong productive cough with brown-yellow sputum. Pt wears 02-2.5LNC Normal [facility] ED PROV NOTEon 09-09-2024 ED PROV NOTE HNO ID: [id number] Author: ARTURO NG MD Service: Emergency Medicine [...] stents placed in 2021 by cardiology at [facility]. Past couple of days he has not [...] HIP FRACTURE(S) Left 11/2017 hip screw placed [facility] FAMILY HISTORY Problem Relation Age of Onset [...] rash. Neuro (more content not included)... Normal [facility] HIGH SENSITIVITY TROPONIN T (INITIAL)on 09-09-2024 Troponin T.cardiac High sensitivity method [Mass/Vol] 10 ng/L Normal <12 [facility] Comment on above: Order Comment: Kika bryant Type: BLOOD SPECIMEN Ordering Facility: [facility] Address: [address] [place] [address] Performed By: #### L [id number] #### [facility] CLIA [id number] [address] [place] [address] [place] HIGH SENSITIVITY TROPONIN T (SECOND)on 09-09-2024 Troponin T.cardiac High sensitivity method [Mass/Vol] 10 ng/L Normal <12 [facility] Comment on above: Order Comment: Kika bryant Type: BLOOD SPECIMENOrdering Facility: [facility] Address: [address] [place] [address] Performed By: #### L [id number] ####[facility] LABCLIA [id number] [place] [address] [place] Magnesium SerPl-mCncon 09-09 Magnesium [Mass/Vol] 2.0 mg/dL Normal 1.7-2.3 [facility] Comment on above: Order Comment: Kika bryant Type: BLOOD SPECIMEN Ordering Facility: [facility] Address: [address] [place] [address] Performed By: #### 1 9123-9, 60874-3, 47582-1 #### [facility] CLIA [id number] [address] [place] [address] [facility] NT-proBNP [facility] 09-09 Natriuretic peptide.B prohormone N-Terminal [Mass/Vol] 2490 pg/mL High <450 [facility] Comment on above: Order Comment: Kika annette Type: BLOOD SPECIMEN Ordering Facility: [facility] Address: [address] [place] [address] Performed By: #### 1 9123-9, 12850-1, 45048-9 #### [facility] CLIA [id number] [address] [place] [address] [facility] PT panel Coag (PPP)on 2024 INR Coag (PPP) [Relative time] 1.4 {INR} High 0.9-1.3 [facility] Comment on above: Order Comment: Kika bryant Type: BLOOD SPECIMENOrdering Facility: [facility] Address: [address] [place] [address] Result Comment: Marilee min K Antagonist (VKA) Therapeutic Range: INR 2 to 3 (Target INR of 2.5) Note: For patients treated with VKA drugs, such as warfarin, the [place] College of Chest [employer]icians 2012 Guideline recommends [...] Chest 2012, 141:7S-47S Alvino RA et al. [facility] 2017, 70: 252-289 Performed By: #### 3 4528-0 ####[facility] LABCLIA [id number] [place] [address] [place] PT Coag (PPP) [Time] 14.9 s High <13.1 [facility] Comment on above: Order Comment: Speci men Type: BLOOD SPECIMENOrdering Facility: [facility] Address: [place] [address] Performed By: #### 3 4528-0 ####[facility] LABCLIA [id number] [place] [address] [facility] XR CHEST 1V FRONTALon 2024 XR [...] silhouette. Atherosclerotic calcifications of the thoracic aorta. Vice President Of Instruction: FATOUMATA Transcribe Date/Time: Sep 09 2024 9:50P Dictated by : SAVANNA GORE MD This examination was interpreted and the report reviewed and electronically signed by: SAVANNA GORE MD on Sep 09 2024 9:51PM EST [id number] Normal [facility] CNCOon 09-05-2024 CNCO Letter Text Normal [facility] CNPNon 09-05-2024 CNPN Telephone (CAEPST) ARTURO PEDERSEN ([id number]) 1940 M Date Time Provider Department 09/05/24 SUDHA NOE During your visit today, we recorded the following information about you: Shwetha Kendrick 09/05/2024 4:33 PM Signed Lvm and letter Provider only at [place] now Allergies As of Date: 09/05/2024 Noted [...] Anxiety [F41.9] 12/23/2021 Atherosclerotic heart disease of [place] coronar*10/19/2017 Cerebrovascular accident (CVA) (HCC) [I63.9] 12/23/2021 [...] Encounter Status:Closed by SHWETHA KENDRICK on 09/05/24 [facility] CNOVon 07-13-2024 CNOV Office Visit (FPWADS ) ARTURO PEDERSEN ([id number]) 1940 M Date Time Provider Department 07/13/24 4:20 PM PADDY ZAIDI During your visit today, we [...] atherosclerotic heart disease: Pending electophys eval in [place] in November. No regular director volunteer services. 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 Atherosclerosis of [place] coronary artery of [place] heart without angina pectoris (I25.10) - Referral to cardiology in [place] initiated for further evaluation and management. - [...] - Prescription sent to pharmacy. Recording using [employer] software for draft documentation of the visit was discussed with the patient/authorized claim service representative; all questions welcomed and answered. Patient/authorized claim service representative agreed to proceed Paddy Zaidi [...] [E78.00] Idiopathic peripheral neuropathy [G60.9] Atherosclerosis of [place] coronary artery of [place] heart without angina pectoris [I25.10] Order(s):nitroglycerin sublingual (NITROQUICK) 0.3 mg SL tabletDissolve 1 tablet under the tongue every 5 minutes as needed.Disp: 25 tabletRfl: (more content not included)... Normal [facility] 07-13-2024 [facility] Telephone (TIAWS) ARTURO PEDERSEN ([id number]) 1940 M Date Time Provider Department 07/13/24 FLAVIA SMITH During your visit today, we recorded the following information about you: Flavia Smith, WELDING TEACHER.[facility] 07/13/2024 4:40 PM Signed Review of OSH CT with most recent CT does not show worsening of right hemidiaphragm. Left lower lobe nodule no longer seen. Atelectasis in LLL but no further concern for PNA. Needs to complete overnight oxygen testing. Edwina De León LPN 07/16/2024 9:23 AM Signed Fax to [facility] [place] records. 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*10/19/2017 Cerebrovascular accident (CVA) (HCC) [I63.9] 12/23/2021 [...] by CLICK, FLAVIA Brush on 07/13/24 Normal [facility] CBC panel Auto (Bld)on 06-29 Erythrocyte distribution width (RBC) [Ratio] 13.9 % Normal 11.5-15.0 [facility] Comment on above: Order Comment: Speci men Type: BLOOD SPECIMENOrdering Facility: [facility] Address: [address] [place] [address] Performed By: #### 5 8410-2 ####[facility] [id number] [place] [address] [place] Hematocrit (Bld) [Volume fraction] 45.0 % Normal 39.0-51.0 [facility] Comment on above: Order Comment: Speci men Type: BLOOD SPECIMENOrdering Facility: [facility] Address: [address] [place] [address] Performed By: #### 5 8410-2 ####[facility] [id number] [place] [address] [place] Hemoglobin (Bld) [Mass/Vol] 14.1 g/dL Normal 13.0-17.0 [facility] Comment on above: Order Comment: Speci men Type: BLOOD SPECIMENOrdering Facility: [facility] Address: [address] [place] [address] Performed By: #### 5 8410-2 ####[facility] [id number] [place] [address] [place] MCH (RBC) [Entitic mass] 29.9 pg Normal 26.0-34.0 [facility] Comment on above: Order Comment: Speci men Type: BLOOD SPECIMENOrdering Facility: [facility] Address: [address] [place] [address] Performed By: #### 5 8410-2 ####[facility] YANGHIRAMKANDI [id number] [address] [place] MCHC (RBC) [Mass/Vol] 31.3 g/dL Normal 30.5-36.0 [facility] Comment on above: Order Comment: Speci men Type: BLOOD SPECIMENOrdering Facility: [facility] Address: [address] [place] [address] Performed By: #### 5 8410-2 ####[facility] [id number] [address] [place] MCV (RBC) [Entitic vol] 95.5 fL Normal 80.0-100.0 C [facility] Comment on above: Order Comment: Speci men Type: BLOOD SPECIMENOrdering Facility: [facility] Address: [address] [place] [address] Performed By: #### 5 8410-2 ####[facility] [id number] [place] [address] [place] Nucleated RBC (Bld) [#/Vol] 10*3/uL Normal <0.01 [facility] Comment on above: Order Comment: Speci men Type: BLOOD SPECIMENOrdering Facility: [facility] Address: [address] [place] [address] Performed By: #### 5 8410-2 ####[facility]IAL[facility]CL[facility] [id number] [place] [address] [place] Platelet mean volume (Bld) [Entitic vol] 9.9 fL Normal 9.0-12.7 [facility] Comment on above: Order Comment: Speci men Type: BLOOD SPECIMENOrdering Facility: [facility] Address: [address] [place] [address] Performed By: #### 5 8410-2 ####[facility] [id number] [place] [address] [place] Platelets (Bld) [#/Vol] 164 10*3/uL Normal 150-400 [facility] Comment on above: Order Comment: Speci men Type: BLOOD SPECIMENOrdering Facility: [facility] Address: [address] [place] [address] Performed By: #### 5 8410-2 ####[facility] [id number] [place] [address] [place] RBC (Bld) [#/Vol] 4.71 10*6/uL Normal 4.20-6.00 [facility] Comment on above: Order Comment: Speci men Type: BLOOD SPECIMENOrdering Facility: [facility] Address: [address] [place] [address] Performed By: #### 5 8410-2 ####[facility]IAL[facility] [id number] [place] [address] [place] WBC (Bld) [#/Vol] 11.36 10*3/uL High 3.70-11.00 [facility] Comment on above: Order Comment: Speci men Type: BLOOD SPECIMENOrdering Facility: [facility] Address: [address] [place] [address] Performed By: #### 5 8410-2 ####[facility]IAL[facility]CL[facility] [id number] [place] [address] [place] CNOVon 06-29-2024 CNOV Office Visit (PULMWS ) ARTURO PEDERSEN ([id number]) 1940 M Date Time Provider Department 06/29/24 1:00 PM FLAVIA SMITH PULMWS During your visit today, we recorded the following information about you: Pulse Respiration Blood pressure 69/minute 18/minute 108/64 Flavia Smith, WELDING TEACHER.[employer] 06/29/2024 7:32 PM Signed Pulmonary Medicine Patients name: Arturo Capmbell PCP: Paddy Zaidi MD CC: follow-up HPI: Arturo Pedersen is a 83 year old male former 57-hmnl-gjpw smoker quitting in 1992 with PMH significant for obesity, coronary artery disease s/p CABG and stent, previous stroke, GERD, HLD, prostate cancer s/p radiation, HTN, PAF on AC, central sleep apnea not wearing PAP, chronic hypoxemic respiratory failure. Current inhaled therapy Advair and PRN Albuterol. He presents today for follow-up with his provider network analyst. YOLANDA 03/2024 with exertional dyspnea, chest tightness and wheezing. Started on Advair at that time. Oximetry with ambulation at that time did not show need for supplemental O2 with exertion. He and his provider network analyst insist he can't even stand up without [...] in acut (more content not included)... Normal [facility] Comprehensive metabolic 2000 panelon 06-29-2024 Albumin [Mass/Vol] 4.0 g/dL Normal 3.9-4.9 [facility] Comment on above: Order Comment: Speci men Type: BLOOD SPECIMENOrdering Facility: [facility] Address: [address] [place] [address] Performed By: #### 2 4323-8 ####[facility] MILLWALLIA [id number] [place] [address] [place] ALP [Catalytic activity/Vol] 123 U/L High 38-113 [facility] Comment on above: Order Comment: Speci men Type: BLOOD SPECIMENOrdering Facility: [facility] Address: [address] [place] [address] Performed By: #### 2 4323-8 ####[facility]ITALWNCLIA [id number] [place] [address] [place] ALT [Catalytic activity/Vol] 12 U/L Normal 10-54 [facility] Comment on above: Order Comment: Speci men Type: BLOOD SPECIMENOrdering Facility: [facility] Address: [address] [place] [address] Performed By: #### 2 4323-8 ####[facility] MILLTOWNCLIA [id number] [place] [address] [place] Anion gap [Moles/Vol] 11 mmol/L Normal 8-15 [facility] Comment on above: Order Comment: Speci men Type: BLOOD SPECIMENOrdering Facility: [facility] Address: [address] [place] [address] Performed By: #### 2 4323-8 ####[facility] DEYANIRA [id number] [place] [address] [place] AST [Catalytic activity/Vol] 15 U/L Normal 14-40 [facility] Comment on above: Order Comment: Speci men Type: BLOOD SPECIMENOrdering Facility: [facility] Address: [address] [place] [address] Performed By: #### 2 4323-8 ####[facility]ITAL[facility] [id number] [place] [address] [place] Bilirubin [Mass/Vol] 0.8 mg/dL Normal 0.2-1.3 [facility] Comment on above: Order Comment: Speci men Type: BLOOD SPECIMENOrdering Facility: [facility] Address: [address] [place] [address] Performed By: #### 2 4323-8 ####[facility] [id number] [place] [address] [place] Calcium [Mass/Vol] 9.5 mg/dL Normal 8.5-10.2 [facility] Comment on above: Order Comment: Speci men Type: BLOOD SPECIMENOrdering Facility: [facility] Address: [address] [place] [address] Performed By: #### 2 4323-8 ####[facility]IALNCLIA [id number] [place] [address] [place] Chloride [Moles/Vol] 101 mmol/L Normal 98-107 [facility] Comment on above: Order Comment: Speci men Type: BLOOD SPECIMENOrdering Facility: [facility] Address: [address] [place] [address] Performed By: #### 2 4323-8 ####[facility]IALNCLIA [id number] [place] [address] [place] CO2 [Moles/Vol] 26 mmol/L Normal 22-30 [facility] Comment on above: Order Comment: Speci men Type: BLOOD SPECIMENOrdering Facility: [facility] Address: [address] [place] [address] Performed By: #### 2 4323-8 ####[facility] [id number] [place] [address] [place] Creatinine [Mass/Vol] 0.75 mg/dL Normal 0.73-1.22 [facility] Comment on above: Order Comment: Speci men Type: BLOOD SPECIMENOrdering Facility: [facility] Address: [address] [place] [address] Performed By: #### 2 4323-8 ####[facility]ITALA [id number] [place] [address] [place] Creatinine and Glomerular filtration rate.predicted panel (S/P/Bld) 89 mL/min/1.73m??? Normal >=60 [facility] Comment on above: Order Comment: Speci men Type: BLOOD SPECIMENOrdering Facility: [facility] Address: [address] [place] [address] Result Comment: Calista mated Glomerular Filtration Rate [...] Performed By: #### 2 4323-8 ####[facility]ITALWNCLIA [id number] [place] [address] [place] Glucose [Mass/Vol] 111 mg/dL High 74-99 [facility] Comment on above: Order Comment: Speci men Type: BLOOD SPECIMENOrdering Facility: [facility] Address: [address] [place], [place] [address] Result Comment: The [place] Diabetes Association (ADA) provides guidance for cutoff [...] Standards of Medical Care in Diabetes 2016, [place] Diabetes Association. Diabetes Care. 2016.39(Suppl 1). Performed By: #### 2 4323-8 ####[facility] MEMORIALAIDENLIYazmin [id number] [place] [address] [place] Potassium [Moles/Vol] 4.4 mmol/L Normal 3.7-5.1 [facility] Comment on above: Order Comment: Kika bryant Type: BLOOD SPECIMENOrdering Facility: [facility] Address: [address] [place] [address] Performed By: #### 2 4323-8 ####[facility] HOSPITALWAIDENLIA [id number] [place] [address] [place] Protein [Mass/Vol] 6.9 g/dL Normal 6.3-8.0 [facility] Comment on above: Order Comment: Speci men Type: BLOOD SPECIMENOrdering Facility: [facility] Address: [address] [place], [place] [address] Performed By: #### 2 4323-8 ####[facility] MILLWNCLIA [id number] [place] [address] [place] Sodium [Moles/Vol] 138 mmol/L Normal 136-144 [facility] Comment on above: Order Comment: Speci men Type: BLOOD SPECIMENOrdering Facility: [facility] Address: [address] [place] [address] Performed By: #### 2 4323-8 ####[facility] [id number] [place] [address] [place] Urea nitrogen [Mass/Vol] 23 mg/dL Normal 9-24 [facility] Comment on above: Order Comment: Speci men Type: BLOOD SPECIMENOrdering Facility: [facility] Address: [address] [place] [address] Performed By: #### 2 4323-8 ####[facility] [id number] [place] [address] [place] Lipid 1996 panelon 5 Cholesterol [Mass/Vol] 125 mg/dL Normal <200 [facility] Comment on above: Order Comment: Speci men Type: BLOOD SPECIMENOrdering Facility: [facility] Address: [address] [place] [address] Result Comment: <200 mg/dL, Desirable 200-239 mg/dL, Borderline high >239 mg/dL, High Performed By: #### 2 4331-1 ####[facility] LABCLIA [id number] [place] [address] [place] AMERICAHCA [facility] [id number] [place] [address] [place]#### 3016-3 ####[facility] LABCLIA [id number] [place] [id number] [place] Cholesterol in HDL [Mass/Vol] 44 mg/dL Normal >39 [facility] Comment on above: Order Comment: Speci men Type: BLOOD SPECIMENOrdering Facility: [facility] Address: [address] [place] [address] Result Comment: 40-5 9 mg/dL, Acceptable >59 mg/dL, High: Negative risk factor for coronary heart disease <40 mg/dL, Low: Positive risk factor for coronary heart disease Performed By: #### 2 4331-1 ####[facility] LABCLIA [id number] [address] STATES OF [facility] [id number] [address] STATES OF [place]#### 3016-3 ####[facility] LABCLIA [id number] [place] [address] [place] Cholesterol in LDL [Mass/Vol] 66 mg/dL Normal <100 [facility] Comment on above: Order Comment: Speci men Type: BLOOD SPECIMENOrdering Facility: [facility] Address: [address] [place] [address] Result Comment: <100 mg/dL, Optimal 100-129 mg/dL, Near optimal/above optimal 130-159 mg/dL, Borderline high 160-189 mg/dL, High >189 mg/dL, Very high Secondary prevention optimal LDL Cholesterol levels are recommended to be <70 mg/dL LDL cholesterol is calculated using the Yost-NIH equation. Performed By: #### 2 4331-1 ####[facility] LABCLIA [id number] [address] STATES OF [facility] [id number] [address] STATES OF [place]#### 3016-3 ####[facility] LABCLIA [id number] [place] [id number] [place] Cholesterol in LDL/Cholesterol in HDL [Mass ratio] 1.50 {ratio} Normal <2.54 [facility] Comment on above: Order Comment: Speci men Type: BLOOD SPECIMENOrdering Facility: [facility] Address: [address] [place] [address] Result Comment: Ana red: 1. National Cholesterol Education Program ATP III Guideline At-A-Glance Quick Desk Reference: National Heart, Lung, and Blood [place]. National Institutes of Health. 2001: NIH Publication No. 01-3305. 2. An International Atherosclerosis Society position paper: global recommendations for the management of dyslipidemia: executive summary, Atherosclerosis. 2014: 232(2):410-413. Performed By: #### 2 4331-1 ####[facility] LABCLIA [id number] [id number] [place] [address] [place]#### 3016-3 ####[facility] LABCLIA [id number] [place] [id number] [place] STATES OF [place] Cholesterol in VLDL [Mass/Vol] 11 mg/dL Normal <30 [facility] Comment on above: Order Comment: Speci men Type: BLOOD SPECIMENOrdering Facility: [facility] Address: [address] [place] [address] Performed By: #### 2 4331-1 ####[facility] LABCLIA [id number] [place] [id number] [place] [address] STATES [place]#### 3016-3 ####[facility] LABCLIA [id number] [place] [id number] [place] STATES OF [place] Cholesterol non HDL [Mass/Vol] 81 mg/dL Normal <130 [facility] Comment on above: Order Comment: Speci men Type: BLOOD SPECIMENOrdering Facility: [facility] Address: [address] [place] [address] Result Comment: <130 mg/dL, Optimal 130-159 mg/dL, Near optimal/above optimal 160-189 mg/dL, Borderline high 190-219 mg/dL, High >219 mg/dL, Very high Secondary prevention optimal non HDL Cholesterol levels are recommended to be <100 mg/dL Performed By: #### 2 4331-1 ####[facility] LABCLIA [id number] [address] [place] [address] [place] [facility] [id number] [place] [address] [place]#### 3016-3 ####[facility] LABCLIA [id number] [address], [facility]95 [place] Cholesterol.total/Choles terol in HDL [Mass ratio] 2.84 {ratio} Normal <5.10 [facility] Comment on above: Order Comment: Speci men Type: BLOOD SPECIMENOrdering Facility: [facility] Address: [address] [place] [address] Performed By: #### 2 4331-1 ####[facility] LABCLIA [id number] [address], [address] STATES OF [facility] [id number] [place] [address] [place]#### 3016-3 ####[facility] LABCLIA [id number] [address], [facility]95 [place] FASTING TIME 12 hrs Normal [facility] Comment on above: Order Comment: Speci men Type: BLOOD SPECIMENOrdering Facility: [facility] Address: [address] [place] [address] Performed By: #### 2 4331-1 ####[facility] LABCLIA [id number] [facility] [address], [facility] [place] [facility] [id number] [place] [address] [place]#### 3016-3 ####[facility] LABCLIA [id number] [address] Triglyceride [Mass/Vol] 71 mg/dL Normal <150 [facility] Comment on above: Order Comment: Kika bryant Type: BLOOD SPECIMENOrdering Facility: [facility] Address: [address] [place] [address] Result Comment: <150 mg/dL, Normal 150-199 mg/dL, Borderline high 200-499 mg/dL, High >499 mg/dL, Very high Performed By: #### 2 4331-1 ####[facility] LABCLIA [id number] [address] [id number] [address]#### 3016-3 ####[facility] LABCLIA [id number] [address] PT panel Coag (PPP)on 2024 INR Coag (PPP) [Relative time] 1.2 {INR} Normal 0.9-1.3 [facility] Comment on above: Order Comment: Kika bryant Type: BLOOD SPECIMENOrdering Facility: [facility] Address: [address] [place] [address] Result Comment: Marilee min K Antagonist (VKA) Therapeutic Range: INR 2 to 3 (Target INR of 2.5) Note: For patients treated with VKA drugs, such as warfarin, the [place] [employer] 2012 Guideline recommends [...] Chest 2012, 141:7S-47S Alvino RA, et al. [facility] 2017, 70: 252-289 Performed By: #### 3 4528-0 ####[facility] [id number] [place] [address] [place] PT Coag (PPP) [Time] 12.6 s Normal <13.1 [facility] Comment on above: Order Comment: Speci men Type: BLOOD SPECIMENOrdering Facility: [facility] Address: [address] [place] [address] Performed By: #### 3 4528-0 ####[facility] [id number] [address] STATES OF [place] TSH SerPl-aCncon 06-29-2024 TSH Qn 2.210 m[IU]/L Normal 0.270-4.200 [facility] Comment on above: Order Comment: Speci men Type: BLOOD SPECIMENOrdering Facility: [facility] Address: [address] [place] [address] Performed By: #### 2 4331-1 ####[facility] LABIA [id number] [id number] [place] [address] OF [place]#### 3016-3 ####[facility] LABIA [id number] [address] OF [place] CNOVon 03-27-2024 CNOV Office Visit (PULMWS ) ARTURO PEDERSEN ([id number]) 1940 M Date Time Provider Department 03/27/24 2:00 PM FLAVIA SMITH PULMWS During your visit today, we recorded the following information about you: Pulse Respiration Blood pressure 90/minute 18/minute 122/80 Flavia Smith APRN.CNP 03/27/2024 5:53 PM Signed Pulmonary Medicine Patients name: Arturo Campbell PCP: Paddy Zaidi MD CC: follow-up HPI: Arturo Pedersen is a 83 year old male former 50-qart-qmhw smoker quitting in 1992 with PMH significant [...] Had also just previously been hospitalized at [facility] for Pneumonia. At his last visit, he [...] tightness. Has frequent wheezing that prompts his provider network analyst to remind him to use Albuterol. No [...] 160-9-4.8 mcg/actuation HFA aerosol inhaler Generic drug: kiwxnstopp-xtajuxxi-uma moterol Inhale 2 Puffs as instructed two [...] for arthra (more content not included)... Normal [facility] CT CHEST WO IVCONon 03-27-19 CT CHEST WO IVCON * * *Final Report* * * DATE OF EXAM: Mar 27 2024 3:54PM [facility] 0541 - CT CHEST WO IVCON / [...] enlargement. Status post CABG surgery with severe [place] coronary artery atherosclerotic calcifications are noted, although [...] significantly enlarged lymph nodes in the chest. Vice President Of Instruction: FATOUMATA Transcribe Date/Time: Mar 31 2024 5:10P Dictated by : VIDA CAAL MD This examination was interpreted and the report reviewed and electronically signed by: VIDA CAAL MD on Mar 31 2024 5:18PM EST [id number] Normal [facility] OXIMETRY WITH AMBULATIONon 0 03-27-2024 Shelly Sims [...] Patient does not have a faster pace [facility] CNPRadha 03-21-20[facility] ARTURO ([id number]) 1940 M Date Time Provider Department 03/21/24 [...] TABLET BY MOUTH ONCE DAILY DIRECTED - wthqwjqgvs-mtxhxucm-bac moterol (BREZTRI AEROSPHERE) 160-9-4.8 mcg/actuation HFA aerosol [...] Anxiety [F41.9] 12/23/2021 Atherosclerotic heart disease of [place] coronar*10/19/2017 Cerebrovascular accident (CVA) (HCC) [I63.9] 12/23/2021 [...] acute postp (more content not included)... Normal [facility] CNPRadha 03-06-2024 CNPN Telephone (PULMWS) ARTURO PEDERSEN ([id number]) 1940 M Date Time Provider Department 03/06/24 RAINA HUYNH During your visit today, we recorded the following information about you: Judy Wong MA 03/06/2024 9:29 AM Signed Analilia - Pharmacist from [facility] calling and asking if there is [...] Fully Assessed Prescriptions as of 03/08/2024 - ulwzpcqxym-kjmodhkl-uke moterol (BREZTRI AEROSPHERE) 160-9-4.8 mcg/actuation HFA aerosol [...] Anxiety [F41.9] 12/23/2021 Atherosclerotic heart disease of [place] coronar*10/19/2017 Cerebrovascular accident (CVA) (HCC) [I63.9] 12/23/2021 [...] Encounter Status:Closed by DARIENEDWINA GRIJALVA on 03/08/24 [place] Telephone (FPWADS) ARTURO PEDERSEN ([id number]) 1940 M Date Time Provider Department 03/06/24 PADDY ZAIDI FPWARent Jungle During your visit today, we recorded the [...] a day. Call Hui back with response [phone]-did advise her to clean out VM so we can leave messages. FREIDA Olivarez Jeffery R, MD 03/16/2024 5:19 PM Signed Just take 1 time dose of 5 mg. One extra pill just one dose. Check INR in 2 weeks MD Toni Sheehanski, Violetta Gee, FREIDA 03/17/2024 9:32 AM Signed Called Hui at [phone] Vm still full-could not leave message. Called all other listed numbers- no answer. VM's are all full-could not leave message. Not active on MyChart. Will need to try again later. FREIDA Olivarez Melanie, RN 03/19/2024 10:52 AM Signed Called [phone]. No answer. Mailbox still full. Isabell Sood, [...] TABLET BY MOUTH ONCE DAILY DIRECTED - gltbkbxsce-tiwvwxly-bqf moterol (BREZTRI AEROSPHERE) 160-9-4.8 mcg/actuation HFA aerosol [...] Anxiety [F41.9] 12/23/2021 Atherosclerotic heart disease of [place] coronar*10/19/2017 Cerebrovascular accident (CVA) (HCC) [I63.9] 12/23/2021 [...] cord [J38 (more content not included)... Normal [facility] CNOVon 03-05-2024 CNOV Office Visit (PULMWS ) ARTURO PEDERSEN ([id number]) 1940 M Date Time Provider Department 03/05/24 3:15 PM RAINA HUYNH PULWM During your visit today, we recorded the following information about you: Pulse Respiration Blood pressure Weight 112/minute 14/minute 122/68 96.2 kg Height 1.715 m Raina Huynh MD 03/05/2024 4:00 PM Signed . Respiratory [place] Note Patient name: Arturo Pedersen PCP: Paddy Zaidi MD Referring Physician: Hever Martínez CNP Consultation requested by Hever Martínez for an opinion regarding COPD. My final recommendations will be communicated back to the requesting physician by way of shared Medical record or letter to requesting physician via US mail. CC: COPD HPI: Arturo Pedersen 83 year old male former 53-wsmz-cayt smoker quitting in 1992 with PMH significant for obesity, coronary artery disease s/p CABG and stent, previous stroke, GERD, HLD, prostate cancer s/p radiation, HTN, PAF on AC, central sleep apnea not wearing PAP, chronic hypoxemic respiratory failure being sent for evaluation of COPD. Recently hospitalized at [facility] for pneumonia. CT of the chest [...] recurrent bronchitis. DME: [employer] DATA: PFT: PFT [facility] 10/23/2018; FVC 2.41 L 57% FEV1 1.62 L 54% FEV1/FVC 67% No improvement post-bronchodilator TLC 5.01 L 76% RV 2.60 L 94% RV/TLC 52% DLCO 15.2 73% Imaging / Diagnostic Studies: [facility] MR#: [id number] Acct: [id number] Name: RATURO PEDERSEN Rep #: [id number] : 1940 M 83 From: Shayne Holt [...] the tongue every 5 minutes as needed. wxbvnrenin-cawllyxm-sun moterol (BREZTRI AEROSPHERE) 160-9-4.8 mcg/actuation HFA aerosol inhaler Inhale 2 Puffs as instructed two times a day. albuterol HFA (PROVENTIL HFA, VENTOLIN HFA) 90 mcg/actuation inhaler Inhale 2 Puffs as instructed every 4 hours as needed for wheezing/shortness of breath. warfarin (COUMADIN) (more content not included)... Normal [facility] No Panel Informationon 03-05 DLCO (ml/min/mmHg) 12.07 ml/min/mmHg [facility] DLCO LLN (ml/min/mmHg) 11.87 ml/min/mmHg [facility] DLCO PREDICTED (ml/min/mmHg) 21.80 ml/min/mmHg [facility] DLCO ULN (ml/min/mmHg) 31.74 ml/min/mmHg [facility] DLCO/VA (ml/min/mmHg/L) 4.14 ml/m in/mmHg/ L [facility] DLCO/VA PREDICTED (ml/min/mmHg/L) 3.63 ml/min/mmHg/ L [facility] DLCOcor PREDICTED (ml/min/mmHg) 21.80 ml/min/mmHg [facility] ERV PREDICTED (L) 1.12 L/S [facility] FEF25% POST (L/S) 3.52 L/S [facility] FEF25% PRE (L/S) 2.38 L/S [facility] VIL44-02% LLN (L/S) 0.63 L[facility]S [facility] VED16-12% POST (L/S) 0.46 L/S [facility] VLA42-66% PRE (L/S) 0.42 L[facility]S [facility] OXF10-96% PREDICTED (L/S) 1.77 L/S [facility] FEF75% LLN (L/S) 0.13 L/S [facility] FEF75% POST (L/S) 0.13 L/S [facility] FEF75% PRE (L/S0 0.14 L/S [facility] FEF75% PREDICTED (L/S) 0.41 L/S [facility] FEF75% ULN (L/S) 1.23 L/S [facility] FET POST (S) 10.37 S [facility] FET PRE (S) 11.27 S [facility] FEV1 LLN (L) 1.76 L [facility] FEV1 PRE (L) 1.19 L [facility] FEV1 PREDICTED (L) 2.46 L [facility] FEV1 ULN (L) 3.11 L [facility] FEV1/FVC LLN (%) 61 % [facility] FEV1/FVC POST (%) 64 % [facility] FEV1/FVC PRE (%) 60 % [facility] FEV1/FVC PREDICTED (%) 76 % [facility] FEV1_POST (L) 1.23 L [facility] FVC LLN (L) 2.46 L [facility] FVC POST (L) 1.93 L [facility] FVC PRE (L) 1.97 L [facility] FVC PREDICTED (L) 3.35 L [facility] FVC ULN (L) 4.26 L [facility] IC PREDICTED (L) 2.24 L/S [facility] PEF LLN (L/S) 3.95 L/S [facility] PEF POST (L/S) 4.29 L/S [facility] PEF PRE (L/S) 4.00 L/S [facility] PEF ULN (L/S) 8.26 L/S [facility] SVC LLN (L) 2.46 L/S [facility] SVC PREDICTED (L) 3.35 L/S [facility] SVC ULN (L) 4.26 L/S [facility] VA (L) 2.92 L [facility] VA PREDICTED (L) 6.34 L [facility] [address] [place] [address] Test Date: 2024-03-05 Pat Name: ARTURO PEDERSEN Department: Room: Gender: M 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 PULMONARY FUNCTION LAB [facility] PT panel Coag (PPP)on 2024 INR Coag (PPP) [Relative time] 1.5 {INR} High 0.9-1.3 [facility] Comment on above: Order Comment: Speci men Type: BLOOD SPECIMENOrdering Facility: [facility] Address: [address] [place] [address] Result Comment: Marilee min K Antagonist (VKA) Therapeutic Range: INR 2 to 3 (Target INR of 2.5) Note: For patients treated with VKA drugs, such as warfarin, the [place] [employer] Chest [employer]icians 2012 Guideline recommends [...] Chest 2012, 141:7S-47S Alvino RA, et al. [facility] 2017, 70: 252-289 Performed By: #### 3 4528-0 ####[facility] [id number] [place] [address] [place] PT Coag (PPP) [Time] 15.8 s High <13.1 [facility] Comment on above: Order Comment: Kika bryant Type: BLOOD SPECIMENOrdering Facility: [facility] Address: [address] [place] [address] Performed By: #### 3 4528-0 ####[facility] [id number] [address] STATES OF [place] CNPRadha 02-15-2024 [place] Telephone (POOJAGHash.IOPATY) ARTURO PEDERSEN ([id number]) 1940 [place] Date Time Provider Department 02/15/24 [...] of symptoms: N/A Hui Call patient at: [phone] (home) [phone] (cell) Was an appointment scheduled: No Closing [...] mouth daily as directed. Authorizing Provider: PADDY ZADII INR ordered for 1x per week, standing order for [place] lab. Once he's on a steady dose can cut this back to 1x per sergio . MD Marissa Sheehan Lisa, LPN 02/16/2024 10:22 AM Signed Patients son aware that medication was sent to [facility] in [place]. Son stated he understood that blood work needed drawn in 1 week in [place]. Allergies As of Date: 02/15/2024 Noted Allergy Reaction ASPIRIN 04/19/2018 16 - Unknown OXYCODONE 04/19/2018 14 - Other: See Comments PERCODAN (OXYCODONE-ASPIRIN) 12/17/2004 1 - Mental Status Change Date Reviewed: 02/14/2024 Reviewed by: Talia Ann LPN - Fully Assessed Reason for Visit: Medication Problem [65] Primary Visit Diagnosis:Chronic atrial fibrillation (HCC) [I48.20] Other Visit Diagnosis:[facility] current use of anticoagulant therapy [Z79.01] Order(s):warfarin (COUMADIN) 2.5 mg tabletTake 1 tablet by mouth daily as directed.Disp: 30 tabletRfl: 0 PROTHROMBIN TIME [SQPT] Order #: [id number] STANDING Prescriptions as of 02/16/2024 - warfarin [...] Anxiety [F41.9] 12/23/2021 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)*12/18/2021 Right hemiparesis (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 Normal [facility] CNOVon 02-14-2024 CNOV Office Visit (ELIZABETH ) ARTURO PEDERSEN ([id number]) 1940 M Date Time Provider Department 02/14/24 2:00 PM HEVER MARTÍNEZ During your visit today, we recorded the following information about you: Pulse Blood pressure 96/minute 132/78 Hever Martínez APRN.ASPHALT MIXER 02/14/2024 4:39 PM Signed This note was created using Acunoteriter. Subjective Arturo Pedersen is a 83 year old male. Patient here with delivery aide. Treated for RLL pneumonia at the ER, [...] of AFIB and CAD, never seen a director volunteer services. Uses walker for ambulation, sleeps in the [...] HIP FRACTURE(S) Left 11/2017 hip screw placed [facility] Aspirin, Oxycodone, and Percodan [Oxycodone-Aspirin] MEDICATIONS [...] Chronic obstructive pulmonary disease, unspecified COPD type ([facility]) Recommend to establish care with microfilming document preparer, continue oxygen. - CONSULT TO PULMONARY MEDICINE 3. Adjustment disorder with mixed anxiety an (more content not included)... 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) [I63.9] 12/23/2021 Chronic obstructive asthma with exacerbation (H*12/18/2021 Dysarthria [R47.1] 12/23/2021 Dysphagia [R13.10] 12/23/2021 Encounter for immunization [Z23] 01/12/2018 Gastroesophageal reflux disease [K21.9] 12/23/2021 Hoarseness [R49.0] 11/05/2016 Hypokalemia [E87.6] 12/23/2021 Malignant neoplasm of prostate (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)*12/18/2021 Right hemiparesis ([facility]) [G81.91] 12/23/2021 Weakness [R53.1] 06/05/2021 Coronary artery [...] Encounter Status:Closed by SHAYNE ZAIDI on 02/14/24 [place] Telephone (FPWADS) PEDERSENARTURO Mann ([id number]) 1940 M Date Time Provider Department 02/14/24 HEVER MARTÍNEZ During your visit today, we recorded the following information about you: Lacie Muñoz 02/14/2024 4:12 PM Signed 1st attempt to reach for scheduling, left voicemail. Adrian was seen at [facility] today, and Hever referred him to see Pulmonology. He was unable to stay for scheduling but he and his caregiver said they would like to do all the appointments at [place]. 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 Placed in provider's inbox for review. 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/19/2017 Cerebrovascular accident (CVA) (HCC) [I63.9] 12/23/2021 [...] Status:Closed by GE WILL on 02/13/24 Normal [facility] Basic Metabolic Profile (BMP )on 02-07-2024 BUN/CRE 27.3 RATIO High 10-20 [facility] Comment on above: Performed By: #### M 300.4600, L400.0001, M300.4500 #### [facility] [address] [place], [address] CA,Total 9.5 mg/dL Normal 8.5-10.1 [facility] Comment on above: Performed By: #### M 300.4600, L400.0001, M300.4500 #### [facility] [address] [place], [address] Chloride [Moles/Vol] 102 mmol/L Normal 98-107 [facility] Comment on above: Performed By: #### M 300.4600, L400.0001, M300.4500 #### [facility] [address] [place], [address] CO2 [Moles/Vol] 32.0 mmol/L Normal 21.0-32.0 [facility] Comment on above: Performed By: #### M 300.4600, L400.0001, M300.4500 #### [facility] [address] [place], [address] Creatinine [Mass/Vol] 0.81 mg/dL Normal 0.70-1.30 [facility] Comment on above: Result Comment: The validity of the calculated GFR GFRAA in patients over 70 years has not been determined. Clinical correlation is essential. Performed By: #### M 300.4600, L400.0001, M300.4500 #### [facility] [address] [place], [address] EST GFR - AA 117 mL/min Normal >60 [facility] Comment on above: Result Comment: Afri can Surinamese GFR Calc Performed By: #### M 300.4600, L400.0001, M300.4500 #### [facility] [address] [place], [address] GAP 3 Low 5-15 [facility] Comment on above: Performed By: #### M 300.4600, L400.0001, M300.4500 #### [facility] [address] [place], [address] GFR/1.73 sq M.predicted among non-blacks MDRD (S/P/Bld) [Vol rate/Area] 97 mL/min/{1.73_m2} Normal >60 [facility] Comment on above: Result Comment: Non- GFR Calc Performed By: #### M 300.4600, L400.0001, M300.4500 #### [facility] [address] [place], [address] Glucose [Mass/Vol] 117 mg/dL High 74-106 [facility] Comment on above: Result Comment: Fast ing Glucose result from 100 to 125 mg/dL suggests IMPAIRED HOMEOSTASIS per A.D.A. criteria. Performed By: #### M 300.4600, L400.0001, M300.4500 #### [facility] [address] [place], [address] Potassium [Moles/Vol] 4.6 mmol/L Normal 3.5-5.1 [facility] Comment on above: Performed By: #### M 300.4600, L400.0001, M300.4500 #### [facility] [address] [place], [address] Sodium [Moles/Vol] 137 mmol/L Normal 136-145 [facility] Comment on above: Performed By: #### M 300.4600, L400.0001, M300.4500 #### [facility] [address] [place], [address] Urea nitrogen [Mass/Vol] 22 mg/dL High 7-18 [facility] Comment on above: Performed By: #### M 300.4600, L400.0001, M300.4500 #### [facility] [address] [place], [address] CBC W/Diff, Automatedon 12-3 Absolute Lymph 0.90 X10 3/uL Normal 0.83-4.51 [facility] Comment on above: Performed By: #### M 300.4600, L400.0001, M300.4500 #### [facility] [address] [place], [address] Absolute Neut 12.6 X10 3/uL High 2.0-7.7 [facility] Comment on above: Performed By: #### M 300.4600, L400.0001, M300.4500 #### [facility] [address] [place], [address] Basophils/100 WBC (Bld) 0.7 % Normal 0-1 [facility] Comment on above: Performed By: #### M 300.4600, L400.0001, M300.4500 #### [facility] [address] [place], [address] Eosinophils/100 WBC (Bld) 1.4 % Normal 0-5 [facility] Comment on above: Performed By: #### M 300.4600, L400.0001, M300.4500 #### [facility] [address] [place], [address] Erythrocyte distribution width (RBC) [Ratio] 13.2 % Normal 11.6-14.6 [facility] Comment on above: Performed By: #### M 300.4600, L400.0001, M300.4500 #### [facility] [address] [place], [address] Hematocrit (Bld) [Volume fraction] 46.2 % Normal 40-54 [facility] Comment on above: Performed By: #### M 300.4600, L400.0001, M300.4500 #### [facility] [address] [place], [address] Hemoglobin (Bld) [Mass/Vol] 14.5 g/dL Normal 13.0-16.5 [facility] Comment on above: Performed By: #### M 300.4600, L400.0001, M300.4500 #### [facility] [address] [place], [address] IG% 1.200 High 0.0-0.9 [facility] Comment on above: Result Comment: IG% - Immature Granulocytes (promyelocytes, myelocytes and metamyelocytes) > 1% indicates that a LEFT SHIFT is Present. Performed By: #### M 300.4600, L400.0001, M300.4500 #### [facility] [address] [place], [address] Lymphocytes/100 WBC (Bld) 6.1 % Low 19-41 [facility] Comment on above: Performed By: #### M 300.4600, L400.0001, M300.4500 #### [facility] [address] [place], [address] MCH (RBC) [Entitic mass] 31.1 pg Normal 27.0-32.0 [facility] Comment on above: Performed By: #### M 300.4600, L400.0001, M300.4500 #### [facility] [address] [place], [address] MCHC (RBC) [Mass/Vol] 31.4 g/dL Low 32-36 [facility] Comment on above: Performed By: #### M 300.4600, L400.0001, M300.4500 #### [facility] [address] [place], [address] MCV (RBC) [Entitic vol] 99.1 fL High 80-94 [facility] Comment on above: Performed By: #### M 300.4600, L400.0001, M300.4500 #### [facility] [address] [place], [address] Monocytes/100 WBC (Bld) 5.0 % Normal 0-10 [facility] Comment on above: Performed By: #### M 300.4600, L400.0001, M300.4500 #### [facility] [address] [place], [address] Neutrophils/100 WBC (Bld) 85.6 % High 47-70 [facility] Comment on above: Performed By: #### M 300.4600, L400.0001, M300.4500 #### [facility] [address] [place], [address] Nucleated RBC (Bld) [#/Vol] 0 10*3/uL Normal 0-5 [facility] Comment on above: Performed By: #### M 300.4600, L400.0001, M300.4500 #### [facility] [address] [place], [address] Platelet mean volume (Bld) [Entitic vol] 8.7 fL Normal 6.2-12.0 [facility] Comment on above: Performed By: #### M 300.4600, L400.0001, M300.4500 #### [facility] [address] [place], [address] Platelets (Bld) [#/Vol] 243 10*3/uL Normal 150-450 [facility] Comment on above: Performed By: #### M 300.4600, L400.0001, M300.4500 #### [facility] [address] [place], [address] RBC (Bld) [#/Vol] 4.66 10*6/uL Normal 4.6-6.2 [facility] Comment on above: Performed By: #### M 300.4600, L400.0001, M300.4500 #### [facility] [address] [place], [address] RDW SD 47.5 fl High 35.1-43.9 [facility] Comment on above: Performed By: #### M 300.4600, L400.0001, M300.4500 #### [facility] [address] [place], [address] WBC (Bld) [#/Vol] 14.7 10*3/uL High 4.4-11.0 [facility] Comment on above: Performed By: #### M 300.4600, L400.0001, M300.4500 #### [facility] [address] [place], [address] CTA Chest W/WO Contraston CTA Chest W/WO Contrast [facility] Imaging Services [address] [place], [place] [address] CTA Chest W/WO Contrast MR#: [id number] Acct: [id number] Name: ARTURO PEDERSEN Rep #: [id number] : 1940 M 83 From: Shayne Holt MD PCP: Dr. Shayne Zaidi MD Status: REG ER Study: CTA Chest W/WO Contrast Date of Exam: 02/07/24 Exam# [id number] Ordering [place]: [place] [id number] STUDY: CTA CHEST REASON FOR EXAM: Male, [...] Alpa Jeffries DO; Dr. Shayne Zaidi MD Vice President Of Instruction: Signed Normal [facility] Chest 1 View (Portable)on Chest 1 View (Portable) [facility] Imaging Services [address] [place] [address] Chest 1 View (Portable) MR#: [id number] Acct: [id number] Name: ARTURO PEDERSEN Rep #: [id number] : 1940 M 83 From: Uriel Moody PCP: Dr. Shyane Zaidi MD Status: PRE ER Study: Chest 1 View (Portable) Date of Exam: 02/07/24 Exam# [id number] Ordering Dr: Yevgeniy Reis [id number] INDICATION: COUGH EXAMINATION/TECHNIQUE: X-RAY - XR Chest [...] Dr. Shayne Zaidi MD; ED PHYSICIAN PROVIDER Vice President Of Instruction: Signed Normal [facility] Emergency Department Summary on 02-07-2024 Emergency Department Summary [facility] Medical Records Department [address] [place] [address] Emergency Department Summary 02/07/24 MR#: [id number] Acct: [id number] Name: ARTURO PEDERSEN Rep #: [id number] : 1940 83 From: Alpa Jeffries DO [...] other complaints or concerns at this time. [facility] Medical History Atherosclerosis of coronary artery of [place] heart without angina pectoris Prostate CA Stroke [...] myalgias Integumen (more content not included)... Normal [facility] M100.678on 02-07-2024 M100.678 Pending SARS-CoV-2 (COVID 19) Negative INFLUENZA A Negative INFLUENZA B Negative RSV PCR Negative Normal [facility] Comment on above: Performed By: #### L 400.0001 #### [facility] [address] [facility] [id number] Urinalysis, Completeon 02-06 BACTERIA RARE Normal None Seen [facility] Comment on above: Order Comment: COLLE CTOR TO SPECIFY Performed By: #### L 400.0001 #### [facility] [address] [facility]. [facility] [id number] EPI,SQUAMOUS 0-5 SEEN Normal 0-5 [facility] Comment on above: Order Comment: COLLE CTOR TO SPECIFY Performed By: #### L 400.0001 #### [facility] [address] [facility]. [facility] [address] Mucus Ql (Urine sed) RARE Normal [facility] Comment on above: Order Comment: COLLE CTOR TO SPECIFY Performed By: #### L 400.0001 #### [facility] [address] [place], [address] WBC 5-10 SEEN Normal 0-5 [facility] Comment on above: Order Comment: COLLE CTOR TO SPECIFY Performed By: #### L 400.0001 #### [facility] [address] [place], [place], [id number] RBC 0 SEEN Normal 0-5 [facility] Comment on above: Order Comment: COLLE CTOR TO SPECIFY Performed By: #### L 400.0001 #### [facility] [address] [place], [place], [id number] CNPNon 12-21-2023 SHANNAN Telephone (ELIZABETH) ARTURO PEDERSEN ([id number]) 1940 M Date Time Provider Department 12/21/23 PADDY ZAIDI During your visit today, we recorded the following information about you: Ge Will LPN 12/21/2023 3:29 PM Signed Received annual oxygen rx from [facility]. Placed in provider's inbox for review. 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*10/19/2017 Cerebrovascular accident (CVA) (HCC) [I63.9] 12/23/2021 [...] Status:Closed by GE WILL on 12/21/23 Normal [facility] Absolute lymphocyte countOrd ered By: Parker Metzger on 03-15-2023 Lymphocytes Auto (Unsp spec) [#/Vol] 0.80 10*3/uL 0.83-4.51 [facility] Automated lymphocyte count a s percentage of total leukocytesOrdered By: Parkeramira Metzger on 03-15-2023 Lymphocytes/100 WBC Auto (Unsp spec) 8.8 % 19-41 [facility] Basophil percentageOrdered B y: Parker Metzger on 03-15-2023 Basophils/100 WBC (Bld) 0.7 % 0-1 [facility] Bilirubin [Mass/Vol] 0.60 mg/dL 0.20-1.00 [facility] Comment on above: For patients on eltr ombopag therapy, use of Dimension [place]illa TBIL is not recommended. Chloride [Moles/Vol] 107 mmol/L 98-107 [facility] Eosinophils/100 WBC (Bld) 2.1 % 0-5 [facility] Glucose [Mass/Vol] 110 mg/dL 74-106 [facility] Comment on above: Fasting Glucose resu lt from 100 to 125 mg/dL suggests IMPAIRED HOMEOSTASIS per A.D.A. criteria. Hemoglobin (Bld) [Mass/Vol] 13.1 g/dL 13.0-16.5 [facility] Lactate [Moles/Vol] 1.7 mmol/L 0.4-2.0 [facility] Monocytes/100 WBC (Bld) 6.8 % 0-10 [facility] Neutrophils (Bld) [#/Vol] 7.4 10*3/uL 2.0-7.7 [facility] Neutrophils/100 WBC (Bld) 80.9 % 47-70 [facility] Potassium [Moles/Vol] 4.0 mmol/L 3.5-5.1 [facility] Protein [Mass/Vol] 7.0 g/dL 6.4-8.2 [facility] Sodium [Moles/Vol] 137 mmol/L 136-145 [facility] WBC (Bld) [#/Vol] 9.1 10*3/uL 4.4-11.0 [facility] Determination of erythrocyte mean corpuscular volume (MCV)Ordered By: Parker Metzger on 03-15-2023 MCV (RBC) [Entitic vol] 100.0 fL 80-94 [facility] Erythrocyte distribution wid th ratioOrdered By: Parker Metzger on 03-15-2023 Erythrocyte distribution width (RBC) [Ratio] 13.2 % 11.6-14.6 [facility] Erythrocyte distribution wid th standard deviationOrdered By: Parkeramira Metzger on 03-15-2023 Erythrocyte distribution width (RBC) [Entitic vol] 48.4 fL 35.1-43.9 [facility] Hematocrit Auto (Bld) [Volum e fraction]Ordered By: Parker Metzger on 03-15-2023 Hematocrit (Bld) [Volume fraction] 42.9 % 40-54 [facility] Immature granulocytes/100 WB C Auto (Bld)Ordered By: Parker Metzger on 03-15-2023 Immature granulocytes/100 WBC (Bld) 0.700 % 0.0-0.9 [facility] Comment on above: IG% - Immature Granu locytes (promyelocytes, myelocytes and metamyelocytes) > 1% indicates that a LEFT SHIFT is Present. Laboratory - Chemistry and C hemistry - challengeOrdered By: Parker Metzger on 03-15-2023 Albumin/Globulin [Mass ratio] 1.0 {ratio} 0.9-2.4 [facility] ALP [Catalytic activity/Vol] 116 U/L 45-117 [facility] ALT [Catalytic activity/Vol] 20 U/L 16-61 [facility] CO2 [Moles/Vol] 28.0 mmol/L 21.0-32.0 [facility] Globulin (S) [Mass/Vol] 3.5 g/dL 2.2-4.2 [facility] Urea nitrogen/Creatinine [Mass ratio] 28.5 mg/mg 10-20 [facility] - Hematology and Cell countsOrdered By: Parkeramria Metzger on 03-15-2023 MCH (RBC) [Entitic mass] 30.5 pg 27.0-32.0 [facility] MCHC (RBC) [Mass/Vol] 30.5 g/dL 32-36 [facility] Nucleated RBC/100 WBC (Bld) [Ratio] 0 % 0-5 [facility] Platelet mean volume (Bld) [Entitic vol] 9.9 fL 6.2-12.0 [facility] Platelets (Bld) [#/Vol] 135 10*3/uL 150-450 [facility] - Microbiology an d Antimicrobial susceptibilityOrdered By: Parker Metzger on 03-15-2023 SARS-CoV-2 (COVID-19) RNA NIURKA+probe Ql (Unsp spec) [facility] No Panel InformationOrdered By: Parkeramira Metzger on 03-15-2023 Estimated Creatinine Clearance Calc 83.26 ml/min [facility] Estimated GFR (MDRD) Amer 131 mL/min >60 [facility] Comment on above: GFR Calc Estimated GFR (MDRD) Non-Af Amer 108 mL/min >60 [facility] Comment on above: Non- GFR Calc RBC Auto (Bld) [#/Vol]Ordere d By: Parker Metzger on 03-15-2023 RBC (Bld) [#/Vol] 4.29 10*6/uL 4.6-6.2 [facility] Serum or plasma calcium regan urement (mass/volume)Ordered By: Parker Metzger on 03-15-2023 Calcium [Mass/Vol] 8.6 mg/dL 8.5-10.1 [facility] Serum or plasma creatinine m easurement (mass/volume)Ordered By: Parker Metzger on 03-15-2023 Creatinine [Mass/Vol] 0.74 mg/dL 0.70-1.30 [facility] Comment on above: The validity of the calculated GFR & GFRAA in patients over 70 years has not been determined. Clinical correlation is essential. Serum or plasma urea nitroge n measurement (mass/volume)Ordered By: Parker Metzger on 03-15-2023 Urea nitrogen [Mass/Vol] 21 mg/dL 7-18 [facility] Thin prep Papanicolaou smear with manual screeningOrdered By: Parker Metzger on 03-15-2023 Thin prep Papanicolaou smear with manual screening 3.5 g/dL 3.2-5.0 [facility] Thin prep Papanicolaou smear with manual screening 11 U/L 15-37 [facility] Thin prep Papanicolaou smear with manual screening 2 5-15 [facility] XR Chest PA and Lateralon IMPRESSION: New atelectasis and/or early infiltrate in the right middle lobe. Follow-up to document resolution Vice President Of Instruction: PSCB Transcribe Date/Time: May 24 2022 1:40P Dictated by : SATISH PATEL MD This examination was interpreted and the report reviewed and electronically signed by: SATISH PATEL MD on May 24 2022 1:46PM [facility] DIVISION OF RADIOLOGY * * *Final Report* * * DATE OF EXAM: May 22 2022 11:33AM WOX [id number] - XR CHEST 2V FRONTAL/LAT / PROCEDURE REASON: multiple diagnoses * * * * Physician Interpretation * * * * EXAMINATION: CHEST RADIOGRAPH (2 VIEW FRONTAL & LATERAL) CLINICAL HISTORY: 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) Paroxysmal atrial [...] tissues: Unremarkable. DIVISION OF RADIOLOGY Provider, [facility] - 05/24/2022 * * *Final Report* * * DATE OF EXAM: May 22 2022 11:33AM WOX [id number] - XR CHEST 2V FRONTAL/LAT / PROCEDURE REASON: multiple diagnoses * * * * Physician Interpretation * * * * EXAMINATION: CHEST RADIOGRAPH (2 VIEW FRONTAL & LATERAL) CLINICAL HISTORY: 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) Paroxysmal atrial [...] right middle lobe. Follow-up to document resolution Vice President Of Instruction: PSCDanyel Transcribe Date/Time: May 24 2022 1:40P Dictated by : SATISH PATEL MD This examination was interpreted and the report reviewed and electronically signed by: SATISH PATEL MD on May 24 2022 1:46PM EST [facility] XR Chest PA and LateralOrder ed By: [facility] Provider on 05-24-2022 [facility] Comprehensive metabolic 2000 panelon 05-22-2022 Albumin [Mass/Vol] 4.2 g/dL 3.9 - 4.9 g/dL [facility] ALP [Catalytic activity/Vol] 120 U/L High 38 - 113 U/L [facility] ALT [Catalytic activity/Vol] 9 U/L Low 10 - 54 U/L [facility] Anion gap [Moles/Vol] 12 mmol/L 9 - 18 mmol/L [facility] AST [Catalytic activity/Vol] 17 U/L 14 - 40 U/L [facility] Bilirubin [Mass/Vol] 1.1 mg/dL 0.2 - 1 .3 mg/dL [facility] Calcium [Mass/Vol] 10.0 mg/dL 8.5 - 10. 2 mg/dL [facility] Chloride [Moles/Vol] 102 mmol/L 97 - 10 5 mmol/L [facility] CO2 [Moles/Vol] 28 mmol/L 22 - 30 mmol/L [facility] Creatinine [Mass/Vol] 0.83 mg/dL 0.73 - 1.22 mg/dL [facility] Estimated Glomerular Filtration Rate 87 mL/min/1.73m >=60 mL/min/1.73m [facility] Glucose [Mass/Vol] 119 mg/dL High 74 - 99 mg/dL [facility] Potassium [Moles/Vol] 4.8 mmol/L 3.7 - 5.1 mmol/L [facility] Protein [Mass/Vol] 7.3 g/dL 6.3 - 8.0 g/dL [facility] Sodium [Moles/Vol] 142 mmol/L 136 - 144 mmol/L [facility] Urea nitrogen [Mass/Vol] 26 mg/dL High 9 - 24 mg/d L [facility] Lipid 1996 panelon 3 Cholesterol [Mass/Vol] 115 mg/dL <200 mg/dL [facility] Cholesterol in HDL [Mass/Vol] 39 mg/dL Low >39 mg/dL [facility] Cholesterol in LDL [Mass/Vol] 60 mg/dL <100 mg/dL [facility] Cholesterol in LDL/Cholesterol in HDL [Mass ratio] 1.54 {ratio} <2.54 [facility] Cholesterol in VLDL [Mass/Vol] 16 mg/dL <30 mg/dL [facility] Cholesterol non HDL [Mass/Vol] 76 mg/dL <130 mg/dL [facility] Cholesterol.total/Choles terol in HDL [Mass ratio] 2.95 {ratio} <5.10 [facility] Fasting Time 0 hrs [facility] Triglyceride [Mass/Vol] 80 mg/dL <150 mg/dL [facility] TSH BLDon 05-22-2022 TSH Qn 1.440 m[IU]/L 0.270 - 4.200 mIU/L [facility] XR Chest PA and Lateralon Radiology Study observation (narrative) [facility] CBC panel Auto (Bld)on 05-21 Erythrocyte distribution width (RBC) [Ratio] 13.4 % 11.5 - 15.0 % [facility] Hematocrit (Bld) [Volume fraction] 50.5 % 39.0 - 51.0 % [facility] Hemoglobin (Bld) [Mass/Vol] 15.9 g/dL 13.0 - 17.0 g/dL [facility] MCH (RBC) [Entitic mass] 30.3 pg 26. 0 - 34.0 pg [facility] MCHC (RBC) [Mass/Vol] 31.5 g/dL 30.5 - 36.0 g/dL [facility] MCV (RBC) [Entitic vol] 96.4 fL 80.0 - 100.0 fL [facility] Nucleated RBC (Bld) [#/Vol] <0.01 k/uL [facility] Platelet mean volume (Bld) [Entitic vol] 10.2 fL 9.0 - 12.7 fL [facility] Platelets (Bld) [#/Vol] 166 10*3/uL 150 - 400 k/uL [facility] RBC (Bld) [#/Vol] 5.24 10*6/uL 4.20 - 6.0 0 m/uL [facility] WBC (Bld) [#/Vol] 9.40 10*3/uL 3.70 - 11. 00 k/uL [facility] Absolute lymphocyte counton 12-18-2021 Lymphocytes Auto (Unsp spec) [#/Vol] 0.33 10*3/uL 0.83-4.51 [facility] Work Phone: Basophil percentageon 2021 Basophils/100 WBC (Bld) 0.1 % 0-1 [facility] Work Phone: Bilirubin [Mass/Vol] 0.50 mg/dL 0.20-1.00 [facility] Work Phone: Comment on above: For patients on eltr ombopag therapy, use of Dimension [place] TBIL is not recommended. Chloride [Moles/Vol] 101 mmol/L 98-107 [facility] Work Phone: [phone] Eosinophils/100 WBC (Bld) 0.0 % 0-5 [facility] Work Phone: Glucose [Mass/Vol] 173 mg/dL 74-106 [facility] Work Phone: Comment on above: Fasting Glucose resu lt greater than or equal to 126 mg/dL suggests DIABETES MELLITUS per A.D.A. criteria. Neutrophils (Bld) [#/Vol] 13.8 10*3/uL 2.0-7.7 [facility] Work Phone: Neutrophils/100 WBC (Bld) 92.7 % 47-70 [facility] Work Phone: Potassium [Moles/Vol] 4.1 mmol/L 3.5-5.1 [facility] Work Phone: Protein [Mass/Vol] 6.9 g/dL 6.4-8.2 [facility] Work Phone: Sodium [Moles/Vol] 138 mmol/L 136-145 [facility] Work Phone: WBC (Bld) [#/Vol] 14.9 10*3/uL 4.4-11.0 [facility] Work Phone: Blood erythrocytes count (nu mber/volume)on 12-18-2021 RBC (Bld) [#/Vol] 4.57 10*6/uL 4.6-6.2 [facility] Work Phone: Blood hemoglobin measurement (mass/volume)on 12-18-2021 Hemoglobin (Bld) [Mass/Vol] 14.3 g/dL 13.0-16.5 [facility] Work Phone: Blood lymphocytes/100 leukoc yteson 12-18-2021 Lymphocytes/100 WBC (Bld) 2.2 % 19-41 [facility] Work Phone: Blood monocytes/100 leukocyt eson 12-18-2021 Monocytes/100 WBC (Bld) 4.1 % 0-10 [facility] Work Phone: Blood platelet mean volumeon 12-18-2021 Platelet mean volume (Bld) [Entitic vol] 8.6 fL 6.2-12.0 [facility] Work Phone: Determination of erythrocyte mean corpuscular volume (MCV)on 12-18-2021 MCV (RBC) [Entitic vol] 94.1 fL 80-94 [facility] Work Phone: Hematocrit Auto (Bld) [Volum e fraction]on 12-18-2021 Hematocrit (Bld) [Volume fraction] 43.0 % 40-54 [facility] Work Phone: Laboratory - Chemistry and C hemistry - challengeon 12-18-2021 ALP [Catalytic activity/Vol] 155 U/L 45-117 [facility] Work Phone: ALT [Catalytic activity/Vol] 267 U/L 16-61 [facility] Work Phone: CO2 [Moles/Vol] 32.0 mmol/L 21.0-32.0 [facility] Work Phone: Globulin (S) [Mass/Vol] 4.3 g/dL 2.2-4.2 [facility] Work Phone: Urea nitrogen/Creatinine [Mass ratio] 60.2 mg/mg 10-20 [facility] Work Phone: Laboratory - Hematology and Cell countson 12-18-2021 Erythrocyte distribution width (RBC) [Entitic vol] 44.7 fL 35.1-43.9 [facility] Work Phone: Erythrocyte distribution width (RBC) [Ratio] 13.0 % 11.6-14.6 [facility] Work Phone: Immature granulocytes/100 WBC (Bld) 0.900 % 0.0-0.9 [facility] Work Phone: Comment on above: IG% - Immature Granu locytes (promyelocytes, myelocytes and metamyelocytes) > 1% indicates that a LEFT SHIFT is Present. MCH (RBC) [Entitic mass] 31.3 pg 27.0-32.0 [facility] Work Phone: Nucleated RBC/100 WBC (Bld) [Ratio] 0 % 0-5 [facility] Work Phone: MCHC Auto (RBC) [Mass/Vol]on 12-18-2021 MCHC (RBC) [Mass/Vol] 33.3 g/dL 32-36 [facility] Work Phone: No Panel Informationon 12-18 Estimated Creatinine Clearance Calc 60.66 ml/min [facility] Work Phone: Estimated GFR (MDRD) Amer 166 mL/min >60 [facility] Work Phone: Comment on above: GFR Calc Estimated GFR (MDRD) Non-Af Amer 138 mL/min >60 [facility] Work Phone: Comment on above: Non- GFR Calc Platelets bldon 12-18-2021 Platelets (Bld) [#/Vol] 226 10*3/uL 150-450 [facility] Work Phone: Serum or plasma albumin regan urement (mass/volume)on 12-18-2021 Albumin [Mass/Vol] 2.6 g/dL 3.2-5.0 [facility] Work Phone: Serum or plasma albumin/glob ulin mass ratioon 12-18-2021 Albumin/Globulin [Mass ratio] 0.6 {ratio} 0.9-2.4 [facility] Work Phone: Serum or plasma calcium regan urement (mass/volume)on 12-18-2021 Calcium [Mass/Vol] 8.7 mg/dL 8.5-10.1 [facility] Work Phone: Serum or plasma creatinine m easurement (mass/volume)on 12-18-2021 Creatinine [Mass/Vol] 0.60 mg/dL 0.70-1.30 [facility] Work Phone: Comment on above: The validity of the calculated GFR & GFRAA in patients over 70 years has not been determined. Clinical correlation is essential. Serum or plasma urea nitroge n measurement (mass/volume)on 12-18-2021 Urea nitrogen [Mass/Vol] 36 mg/dL 7-18 [facility] Work Phone: Thin prep Papanicolaou smear with manual screeningon 12-18-2021 Thin prep Papanicolaou smear with manual screening 138 U/L 15-37 [facility] Work Phone: Thin prep Papanicolaou smear with manual screening 5 5-15 [facility] Work Phone: Blood manual differential co mment interpretation (narrative result)on 12-15-2021 Manual differential comment Afshin (Bld) [Interp] SCANNED [facility] Work Phone: Laboratory - Chemistry and C hemistry - challengeon 12-15-2021 Natriuretic peptide B (Bld) [Mass/Vol] 163.1 pg/mL 0-100 [facility] Work Phone: No Panel Informationon 12-15 Thyroid Stimulating Hormone (TSH) 0.52 uIU/mL 0.358-3.74 [facility] Work Phone: Absolute lymphocyte counton 12-14-2021 Lymphocytes Auto (Unsp spec) [#/Vol] 0.43 10*3/uL 0.83-4.51 [facility] Work Phone: Basophil percentageon 2021 Basophils/100 WBC (Bld) 0.2 % 0-1 [facility] Work Phone: Chloride [Moles/Vol] 101 mmol/L 98-107 [facility] Work Phone: Eosinophils/100 WBC (Bld) 0.0 % 0-5 [facility] Work Phone: Glucose [Mass/Vol] 108 mg/dL 74-106 [facility] Work Phone: Comment on above: Fasting Glucose resu lt from 100 to 125 mg/dL suggests IMPAIRED HOMEOSTASIS per A.D.A. criteria. Neutrophils (Bld) [#/Vol] 14.8 10*3/uL 2.0-7.7 [facility] Work Phone: Neutrophils/100 WBC (Bld) 90.8 % 47-70 [facility] Work Phone: Potassium [Moles/Vol] 4.1 mmol/L 3.5-5.1 [facility] Work Phone: [phone] Sodium [Moles/Vol] 135 mmol/L 136-[address] [facility] Work Phone: WBC (Bld) [#/Vol] 16.3 10*3/uL 4.4-11.0 [facility] Work Phone: Blood erythrocytes count (nu mber/volume)on 12-14-2021 RBC (Bld) [#/Vol] 4.32 10*6/uL 4.6-6.2 [facility] Work Phone: Blood hemoglobin measurement (mass/volume)on 12-14-2021 Hemoglobin (Bld) [Mass/Vol] 13.3 g/dL 13.0-16.5 [facility] Work Phone: [phone] Blood lymphocytes/100 leukoc yteson 12-14-2021 Lymphocytes/100 WBC (Bld) 2.6 % 19-41 [facility] Work Phone: Blood monocytes/100 leukocyt eson 12-14-2021 Monocytes/100 WBC (Bld) 5.6 % 0-10 [facility] Work Phone: Blood platelet mean volumeon 12-14-2021 Platelet mean volume (Bld) [Entitic vol] 8.8 fL 6.2-12.0 [facility] Work Phone: Determination of erythrocyte mean corpuscular volume (MCV)on 12-14-2021 MCV (RBC) [Entitic vol] 95.1 fL 80-94 [facility] Work Phone: Hematocrit Auto (Bld) [Volum e fraction]on 12-14-2021 Hematocrit (Bld) [Volume fraction] 41.1 % 40-54 [facility] Work Phone: Laboratory - Chemistry and C hemistry - challengeon 12-14-2021 CO2 [Moles/Vol] 30.0 mmol/L 21.0-32.0 [facility] Work Phone: Urea nitrogen/Creatinine [Mass ratio] 37.1 mg/mg 10-20 [facility] Work Phone: Laboratory - Hematology and Cell countson 12-14-2021 Erythrocyte distribution width (RBC) [Entitic vol] 47.7 fL 35.1-43.9 [facility] Work Phone: Erythrocyte distribution width (RBC) [Ratio] 13.5 % 11.6-14.6 [facility] Work Phone: Immature granulocytes/100 WBC (Bld) 0.800 % 0.0-0.9 [facility] Work Phone: Comment on above: IG% - Immature Granu locytes (promyelocytes, myelocytes and metamyelocytes) > 1% indicates that a LEFT SHIFT is Present. MCH (RBC) [Entitic mass] 30.8 pg 27.0-32.0 [facility] Work Phone: Nucleated RBC/100 WBC (Bld) [Ratio] 0 % 0-5 [facility] Work Phone: MCHC Auto (RBC) [Mass/Vol]on 12-14-2021 MCHC (RBC) [Mass/Vol] 32.4 g/dL 32-36 [facility] Work Phone: No Panel Informationon 12-14 Troponin I High Sensitivity 343 pg/mL 3.0-78.0 [facility] Work Phone: Comment on above: Critical Result(s) C alled at: 22:53:05 12/14/2021 by: Lacie Herrera. Results read back by same. Please Note: New Test Units and Gender Specific Reference Ranges. For more information see Policy Stat Procedure [place] High Sensitivity Troponin (TNIH) and attachments. D-Dimer Quantitative (PE/DVT) 1.54 FEU/ug/m 0.27-0.49 [facility] Work Phone: Comment on above: D-Dimer ELEVATED (>0 .49): Additional studies and clinicalassessments are indicated to conclude diagnosis of:Deep Vein Thrombosis (DVT) or Pulmonary Embolism (PE)CRITICAL VALUE VERIFIED. CALLED TO ROSCOE BRIZUELA12/14/21 190 Samson Walters.RESULTS READ BACK BY SAME . Estimated Creatinine Clearance Calc 62.53 ml/min [facility] Work Phone: Estimated GFR (MDRD) Amer 95 mL/min >60 [facility] Work Phone: Comment on above: GFR Calc Estimated GFR (MDRD) Non-Af Amer 79 mL/min >60 [facility] Work Phone: Comment on above: Non- GFR Calc Troponin I High Sensitivity 522 pg/mL 3.0-78.0 [facility] Work Phone: Comment on above: Critical Result(s) C alled at: 16:42:10 12/14/2021 by: [facility] Results read back by same. Please Note: New Test Units and Gender Specific Reference Ranges. For more information see Policy Stat Procedure [place] High Sensitivity Troponin (TNIH) and attachments. Platelets bldon 12-14-2021 Platelets (Bld) [#/Vol] 199 10*3/uL 150-450 [facility] Work Phone: Serum or plasma calcium regan urement (mass/volume)on 12-14-2021 Calcium [Mass/Vol] 9.2 mg/dL 8.5-10.1 [facility] Work Phone: Serum or plasma creatinine m easurement (mass/volume)on 12-14-2021 Creatinine [Mass/Vol] 0.97 mg/dL 0.70-1.30 [facility] Work Phone: Comment on above: The validity of the calculated GFR & GFRAA in patients over 70 years has not been determined. Clinical correlation is essential. Serum or plasma urea nitroge n measurement (mass/volume)on 12-14-2021 Urea nitrogen [Mass/Vol] 36 mg/dL 08-24 [facility] Work Phone: Thin prep Papanicolaou smear with manual screeningon 12-14-2021 Thin prep Papanicolaou smear with manual screening 4 06-21 [facility] Work Phone: NM CARDIAC PERF STRESS/PHARM [...] 60 minutes later. See administered doses below. [facility] Date of service: 06/19/2018 9:36:42 AM [...] normal sinus rhythm. Stress complications: none. Final Vice President Of Instruction: LAURA Transcribe Date/Time: Jun 19 2018 9:36A Dictated by : ROSALINO MURRAY DO This examination was interpreted and the report reviewed and electronically signed by: ROSALINO MURRAY DO on Jun 19 2018 4:55PM EST [id number] [facility] NUCLEAR STRESS LEXISCAN (CAR D)on 06-19-2018 NUCLEAR STRESS LEXISCAN (CARD) NAME : ARTRUO PEDERSEN PID : [id number] : 1940 Gender : Male Race : ORD : [id number] Procedure Date : Jun 19 2018 10:44:58 Edit Date : Jun 22 2018 10:58:35 Conclusions:PLEASE REFER TO IMAGING SECTION IN [facility] FOR COMPLETE INTERPRETATION OF STRESS TEST [...] Protocol Test Reason : Pre-Op Evaluation Location :[facility] Overread By : ROSALINO MURRAY D.O. Edited By : Shraddha Cha Referred By : SHAYNE CEDEÑO Acquired by : Shraddha Cha [facility] ARTURO PEDERSEN ([id number]) 1940 M Date Time Provider Department 06/16/18 [...] Fully Assessed Reason for Visit: Reminder Call [[id number]] Prescriptions as of 06/16/2018 Sig: POTASSIUM CHLORIDE [...] Encounter Status:Closed by NATALIA LIZ on 06/16/18 [facility] COVID-19 virus antigen assay SARS-CoV-2 (COVID-19) Ag IA.rapid Ql (Resp) [facility] Work Phone: Legionella pneumophila ag Legionella Antigen Legionella Antigen [facility] Work Phone: No Panel Information Streptococcus pneumoniae Antigen (M [facility] Work Phone: Vital Signs Date Time Vital Sign Value Performing Clinician Facility 09-12-2024 15:56-0400 Body temperature 97.8 [degF] Dr. Shayne Zaidi MD Work Phone: [facility] 09-12-2024 15:56-0400 Diastolic blood pressure 86 mm[Hg] Dr. Shayne Zaidi MD Work Phone: [facility] 09-12-2024 15:56-0400 Heart rate 102 /min Dr. Shayne Zaidi MD Work Phone: [facility] 09-12-2024 15:56-0400 Inhaled oxygen flow rate 3 L/min Dr. Shayne Zaidi MD Work Phone: [facility] 09-12-2024 15:56-0400 Respiratory rate 18 /min Dr. Shayne Zaidi MD Work Phone: [facility] 09-12-2024 15:56-0400 SaO2% (BldA) [Mass fraction] 96 % Dr. Shayne Zaidi MD Work Phone: [facility] 09-12-2024 15:56-0400 Systolic blood pressure 142 mm[Hg] Dr. Shayne Zaidi MD Work Phone: [facility] 09-12-2024 06:00-0400 Body mass index (BMI) [Ratio] 28.1 kg/m2 Dr. Shayne Zaidi MD Work Phone: [facility] 09-12-2024 06:00-0400 Body weight 91.[address] Shayne Zaidi MD Work Phone: [facility] 09-10-2024 14:33-0400 Body height 180.[address] Shayne Zaidi MD Work Phone: [facility] 07-13-2024 16:53-0400 Diastolic blood pressure 76 mm[Hg] Paddy Zaidi MD Work Phone: [facility] 07-13-2024 16:53-0400 Heart rate 98 /min Paddy Zaidi MD Work Phone: [facility] 07-13-2024 16:53-0400 Systolic blood pressure 125 mm[Hg] Paddy Zaidi MD Work Phone: [facility] 03-27-2024 13:52-0500 Diastolic blood pressure 80 mm[Hg] Flavia Click WELDING TEACHER.[employer] Work Phone: [facility] 03-27-2024 13:52-0500 Heart rate 90 /min Flavia Click WELDING TEACHER.[employer] Work Phone: [facility] 03-27-2024 13:52-0500 Respiratory rate 18 /min Flavia Click WELDING TEACHER.[employer] Work Phone: [facility] 03-27-2024 13:52-0500 SaO2% (BldA) [Mass fraction] 95 % Flavia Click WELDING TEACHER.[employer] Work Phone: [facility] 03-27-2024 13:52-0500 Systolic blood pressure 122 mm[Hg] Flavia Click WELDING TEACHER.[employer] Work Phone: [facility] 03-27-2024 13:47-0500 Heart rate 107 /min Pulm Wstr Work Phone: [facility] 03-27-2024 13:47-0500 SaO2% (BldA) [Mass fraction] 96 % Pulm Wstr Work Phone: [facility] Comment on above: RA resting 03-05-2024 15:07-0500 Body height 171.5 cm Raina Huynh MD Work Phone: [facility] 03-05-2024 15:07-0500 Body mass index (BMI) [Ratio] 32.69 kg/m2 Raina Huynh MD Work Phone: [facility] 03-05-2024 15:07-0500 Body weight 96.16 kg Raina Huynh MD Work Phone: [facility] 03-05-2024 15:07-0500 Diastolic blood pressure 68 mm[Hg] Raina Huynh MD Work Phone: [facility] 03-05-2024 15:07-0500 Heart rate 112 /min Raina Huynh MD Work Phone: [facility] 03-05-2024 15:07-0500 Respiratory rate 14 /min Raina Huynh MD Work Phone: [facility] 03-05-2024 15:07-0500 SaO2% (BldA) [Mass fraction] 96 % Raina Huynh MD Work Phone: [facility] 03-05-2024 15:07-0500 Systolic blood pressure 122 mm[Hg] Raina Huynh MD Work Phone: [facility] 03-05-2024 14:42-0500 Body height 171.5 cm Pulm Wstr Work Phone: [facility] 03-05-2024 14:42-0500 Body mass index (BMI) [Ratio] 32.69 kg/m2 Pulm Wstr Work Phone: [facility] 03-05-2024 14:42-0500 Body weight 96.16 kg Pulm Wstr Work Phone: [facility] 03-05-2024 14:42-0500 Heart rate 112 /min Pulm Wstr Work Phone: [facility] 03-05-2024 14:42-0500 Respiratory rate 14 /min Pulm Wstr Work Phone: [facility] 03-05-2024 14:42-0500 SaO2% (BldA) [Mass fraction] 96 % Pulm Wstr Work Phone: [facility] Comment on above: 2L pulse dose 02-14-2024 14:06-0500 Diastolic blood pressure 78 mm[Hg] Hever Tanya WELDING TEACHER.[employer] Work Phone: [facility] 02-14-2024 14:06-0500 Heart rate 96 /min Hever Tanya WELDING TEACHER.[employer] Work Phone: [facility] 02-14-2024 14:06-0500 Systolic blood pressure 132 mm[Hg] Hever Tanya WELDING TEACHER.[employer] Work Phone: [facility] 06-07-2023 16:30-0400 Body height 180.3 cm Paddy Zaidi MD Work Phone: [facility] 06-07-2023 16:30-0400 Body mass index (BMI) [Ratio] 30.15 kg/m2 Paddy Zaidi MD Work Phone: [facility] 06-07-2023 16:30-0400 Body weight 98 kg Paddy Zaidi MD Work Phone: [facility] 06-07-2023 16:30-0400 Diastolic blood pressure 80 mm[Hg] Paddy Zaidi MD Work Phone: [facility] 06-07-2023 16:30-0400 Heart rate 82 /min Paddy Zaidi MD Work Phone: [facility] 06-07-2023 16:30-0400 SaO2% (BldA) [Mass fraction] 95 % Paddy Zaidi MD Work Phone: [facility] 06-07-2023 16:30-0400 Systolic blood pressure 138 mm[Hg] Paddy Zaidi MD Work Phone: [facility] 03-15-2023 15:52-0500 Diastolic blood pressure 100 mm[Hg] [facility] 03-15-2023 15:52-0500 Heart rate 106 /min [facility] 03-15-2023 15:52-0500 Respiratory rate 22 /min [facility] 03-15-2023 15:52-0500 SaO2% (BldA) [Mass fraction] 95 % [facility] 03-15-2023 15:52-0500 Systolic blood pressure 159 mm[Hg] [facility] 03-15-2023 14:10-0500 Body mass index (BMI) [Ratio] 29.9 kg/m2 [facility] 03-15-2023 14:10-0500 Body weight 97.4 kg [facility] 03-15-2023 13:17-0500 Body height 180.34 cm [facility] 03-15-2023 13:17-0500 Body temperature 98.5 [degF] [facility] 09-22-2022 22:00-0400 Body mass index (BMI) [Ratio] 27.9 kg/m2 [facility] 09-22-2022 22:00-0400 Body weight 91 kg [facility] 09-22-2022 21:47-0400 Heart rate 69 /min [facility] 09-22-2022 21:47-0400 Respiratory rate 16 /min [facility] 09-22-2022 21:47-0400 SaO2% (BldA) [Mass fraction] 97 % [facility] 09-22-2022 18:34-0400 Body height 180.34 cm [facility] 09-22-2022 18:34-0400 Body temperature 97.3 [degF] [facility] 09-22-2022 18:34-0400 Diastolic blood pressure 65 mm[Hg] [facility] 09-22-2022 18:34-0400 Systolic blood pressure 149 mm[Hg] [facility] 06-02-2022 12:58-0400 Body height 180.3 cm Hever Pamela WELDING TEACHER.[employer] Work Phone: [facility] 06-02-2022 12:58-0400 Body weight 92.99 kg Hever Pamela WELDING TEACHER.[employer] Work Phone: [facility] 06-02-2022 12:58-0400 Diastolic blood pressure 68 mm[Hg] Hever Pamela WELDING TEACHER.[employer] Work Phone: [facility] 06-02-2022 12:58-0400 Heart rate 84 /min Hever Pamela WELDING TEACHER.[employer] Work Phone: [facility] 06-02-2022 12:58-0400 SaO2% (BldA) [Mass fraction] 97 % Hever Pamela WELDING TEACHER.[employer] Work Phone: [facility] 06-02-2022 12:58-0400 Systolic blood pressure 134 mm[Hg] Hever Pamela WELDING TEACHER.[employer] Work Phone: [facility] 05-21-2022 16:12-0400 Body height 180.3 cm Paddy Zaidi MD Work Phone: [facility] 05-21-2022 16:12-0400 Body temperature 98.4 [degF] Paddy Zaidi MD Work Phone: [facility] 05-21-2022 16:12-0400 Body weight 88.22 kg Paddy Zaidi MD Work Phone: [facility] 05-21-2022 16:12-0400 Diastolic blood pressure 83 mm[Hg] Paddy Zaidi MD Work Phone: [facility] 05-21-2022 16:12-0400 Heart rate 71 /min Paddy Zaidi MD Work Phone: [facility] 05-21-2022 16:12-0400 Respiratory rate 16 /min Paddy Zaidi MD Work Phone: [facility] 05-21-2022 16:12-0400 SaO2% (BldA) [Mass fraction] 93 % Paddy Zaidi MD Work Phone: [facility] 05-21-2022 16:12-0400 Systolic blood pressure 137 mm[Hg] Paddy Zaidi MD Work Phone: [facility] 12-28-2021 09:17-0500 Body mass index (BMI) [Ratio] 27.8 kg/m2 Dr. Shayne Zaidi Work Phone: [facility] Work Phone: 12-28-2021 09:17-0500 Body temperature 97 [degF] Dr. Shayne Zaidi Work Phone: [facility] Work Phone: 12-28-2021 09:17-0500 Body weight 90.[address] Shayne Zaidi Work Phone: [facility] Work Phone: 12-28-2021 09:17-0500 Diastolic blood pressure 76 mm[Hg] Dr. Shayne Zaidi Work Phone: [facility] Work Phone: 12-28-2021 09:17-0500 Heart rate 72 /min Dr. Shayne Zaidi Work Phone: [facility] Work Phone: 12-28-2021 09:17-0500 Respiratory rate 18 /min Dr. Shayne Zaidi Work Phone: [facility] Work Phone: 12-28-2021 09:17-0500 SaO2% (BldA) [Mass fraction] 94 % Dr. Shayne Zaidi Work Phone: [facility] Work Phone: 12-28-2021 09:17-0500 Systolic blood pressure 140 mm[Hg] Dr. Shayne Zaidi Work Phone: [facility] Work Phone: 12-23-2021 11:19-0500 Body height 180.3 cm Paddy Zaidi MD Work Phone: [facility] 12-23-2021 11:19-0500 Body temperature 98.4 [degF] Paddy Zaidi MD Work Phone: [facility] 12-23-2021 11:19-0500 Body weight 87.09 kg Paddy Zaidi MD Work Phone: [facility] 12-23-2021 11:19-0500 Diastolic blood pressure 54 mm[Hg] Paddy Zaidi MD Work Phone: [facility] 12-23-2021 11:19-0500 Heart rate 87 /min Paddy Zaidi MD Work Phone: [facility] 12-23-2021 11:19-0500 SaO2% (BldA) [Mass fraction] 87 % Paddy Zaidi MD Work Phone: [facility] 12-23-2021 11:19-0500 Systolic blood pressure 91 mm[Hg] Paddy Zaidi MD Work Phone: [facility] 12-18-2021 15:00-0500 Heart rate 95 /min Dr. Shayne Zaidi Work Phone: [facility] Work Phone: 12-18-2021 14:55-0500 Body temperature 97.5 [degF] Dr. Shayne Zaidi Work Phone: [facility] Work Phone: 12-18-2021 14:55-0500 Diastolic blood pressure 88 mm[Hg] Dr. Shayne Zaidi Work Phone: [facility] Work Phone: 12-18-2021 14:55-0500 Inhaled oxygen flow rate 2 L/min Dr. Shayne Zaidi Work Phone: [facility] Work Phone: 12-18-2021 14:55-0500 Respiratory rate 16 /min Dr. Shayne Zaidi Work Phone: [facility] Work Phone: 12-18-2021 14:55-0500 SaO2% (BldA) [Mass fraction] 96 % Dr. Shayne Zaidi Work Phone: [facility] Work Phone: 12-18-2021 14:55-0500 Systolic blood pressure 128 mm[Hg] Dr. Shayne Zaidi Work Phone: [facility] Work Phone: 12-16-2021 15:05-0500 Body height 180.[address] Shayne Zaidi Work Phone: [facility] Work Phone: 12-16-2021 15:05-0500 Body weight 88.[address] Shayne Zaidi Work Phone: [facility] Work Phone: 12-14-2021 18:22-0500 Body mass index (BMI) [Ratio] 27.1 kg/m2 Dr. Shayne Zaidi Work Phone: [facility] Work Phone: 12-14-2021 17:51-0500 Diastolic blood pressure 84 mm[Hg] Dr. Shayne Zaidi Work Phone: [facility] Work Phone: 12-14-2021 17:51-0500 Heart rate 101 /min Dr. Shayne Zaidi Work Phone: [facility] Work Phone: 12-14-2021 17:51-0500 Inhaled oxygen flow rate 2 L/min Dr. Shayne Zaidi Work Phone: [facility] Work Phone: 12-14-2021 17:51-0500 Respiratory rate 28 /min Dr. Shayne Zaidi Work Phone: [facility] Work Phone: 12-14-2021 17:51-0500 SaO2% (BldA) [Mass fraction] 93 % Dr. Shayne Zaidi Work Phone: [facility] Work Phone: 12-14-2021 17:51-0500 Systolic blood pressure 142 mm[Hg] Dr. Shayne Zaidi Work Phone: [facility] Work Phone: 12-14-2021 17:05-0500 Body temperature 98.1 [degF] Dr. Shayne Zaidi Work Phone: [facility] Work Phone: 12-14-2021 15:17-0500 Body height 180.[address] Shayne Zaidi Work Phone: [facility] Work Phone: 12-14-2021 15:17-0500 Body mass index (BMI) [Ratio] 28.3 kg/m2 Dr. Shayne Zaidi Work Phone: [facility] Work Phone: 12-14-2021 15:17-0500 Body weight 92.[address] Shayne Zaidi Work Phone: [facility] Work Phone: 06-22-2021 13:25-0400 Diastolic blood pressure 80 mm[Hg] Hever Pamela WELDING TEACHER.[employer] Work Phone: [facility] 06-22-2021 13:25-0400 Systolic blood pressure 138 mm[Hg] Hever Pamela WELDING TEACHER.[employer] Work Phone: [facility] 06-22-2021 12:58-0400 Body height 180.3 cm Hever Pamela WELDING TEACHER.[employer] Work Phone: [facility] 06-22-2021 12:58-0400 Body weight 88.36 kg Hever Pamela WELDING TEACHER.[employer] Work Phone: [facility] 06-22-2021 12:58-0400 Heart rate 65 /min Hever Santiago WELDING TEACHER.[employer] Work Phone: [facility] Encounters Encounter Date Encounter Type Care Provider Facility Start: 09-19-2024 ambulatory Aayush Sibley Facilit y:[facility] Start: 09-11-2024 Non-patient / Non-visit Dr. Aayush Mills DO [facility] Work Phone: Start: 09-11-2024 Non-patient / Non-visit [facility] Haynes Of [facility] Start: 09-10-2024 End: 09-10-2024 ambulatory Sera Kline RN [employer] Comment on above: MURIEL BENITES RN ( ED Utilization review per request of eula Saab) Start: 09-10-2024 Non-patient / Non-visit Dr. Haynes Of [facility] Start: 09-10-2024 ambulatory [facility] Facility:[facility] Start: 09-10-2024 End: 09-12-2024 Evaluation and management of inpatient Dr. Aayush Sibley DO [facility] Work Phone: Start: 09-09-2024 End: 09-09-2024 Emergency department patient visit ARTURO STEFAN NG Facility:[facility] Start: 09-08-2024 End: 09-08-2024 ambulatory Yudelka Harris RN NURSE FRAME NAILER Comment on above: Patient Update Start: 09-05-2024 End: 09-05-2024 Telephone encounter Sudha Noe MD Work Phone: Cardiology Comment on above: Appointment Start: 08-14-2024 End: 08-14-2024 Refill Paddy Zaidi MD Work Phone: [facility] Comment on above: Refill Request Start: 07-23-2024 End: 07-23-2024 Refill Hever Martínez APRN.ASPHALT MIXER Work Phone: [facility] Comment on above: Refill Request Start: 07-13-2024 End: 07-13-2024 ambulatory PADDY ZAIDI Facility:[facility] Start: 07-13-2024 End: 07-13-2024 Office outpatient visit 25 minutes Paddy Zaidi MD Work Phone: [facility] Comment on above: Oxygen dependent (Pr imary Dx); Atherosclerotic cardiovascular disease; Anxiety attack; Leg swelling; Adjustment disorder with mixed anxiety and depressed mood; PAD (peripheral artery disease); Acquired hypothyroidism; Pure hypercholesterolemia; Idiopathic peripheral neuropathy; Atherosclerosis of ottawa coronary artery of ottawa heart without angina pectoris Start: 07-13-2024 End: 07-13-2024 Telephone encounter Flavia Smith APRN.ASPHALT MIXER Work Phone: Pulmonary Medicine Start: 07-12-2024 End: 07-16-2024 Refill Paddy Zaidi MD Work Phone: [facility] Comment on above: Refill Request Start: 07-03-2024 End: 09-02-2024 Follow-up encounter Hever Martínez APRN.ASPHALT MIXER Work Phone: [facility] Start: 06-29-2024 End: 06-29-2024 ambulatory HEVER MARTÍNEZ Facility:[facility] Start: 06-29-2024 End: 08-29-2024 Follow-up encounter Georgiana Valdivia APRN.ASPHALT MIXER Work Phone: [facility] Comment on above: Results Start: 06-29-2024 End: 06-29-2024 ambulatory FLAVIA SMITH Facility:[facility] Start: 06-18-2024 End: 06-18-2024 ambulatory Brayan Stallworth RN Work Phone: [employer] Comment on above: Population Health Na vigation Outreach ([employer] ) Start: 06-16-2024 End: 06-19-2024 Refill Hever Martínez APRN.ASPHALT MIXER Work Phone: [facility] Comment on above: Refill Request Start: 04-26-2024 End: 04-26-2024 ambulatory Talia Ferreira MA [facility] [place] Start: 04-26-2024 End: 04-26-2024 Patient encounter procedure Talia Ferreira MA [facility] [place] Comment on above: Population Health Na vigation Outreach ([employer] High Risk - Attempt 2) Start: 04-08-2024 End: 04-09-2024 Refill Hever Martínez APRN.ASPHALT MIXER Work Phone: 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) (Primary Dx); Hypoxia; Pneumonia of left lower lobe due to infectious organism; Lung nodules Start: 03-27-2024 End: 03-27-2024 ambulatory [facility] Work Phone: [facility] Comment on above: Spirometry Start: 03-27-2024 End: 03-27-2024 Patient encounter procedure [facility] Work Phone: [facility] Start: 03-27-2024 End: 03-27-2024 Subsequent hospital visit by physician [facility] ([facility]-Stat) Work Phone: Cat Scan Comment on above: Pneumonia of left lo wer lobe due to infectious organism [J18.9] Start: 03-21-2024 End: 03-21-2024 Refill Paddy Zaidi MD Work Phone: [facility] Comment on above: Refill Request Appointment Start: 03-20-2024 End: 03-20-2024 ambulatory Elenita Dey MA [facility] [place] Start: 03-20-2024 End: 03-20-2024 Patient encounter procedure Eleinta Dey MA [facility] Comment on above: Population Health Na vigation Outreach ([employer] High Risk Attempt #1 ) Start: 03-19-2024 ambulatory RAINA HUYNH Fac ility:[facility] Start: 03-11-2024 End: 03-13-2024 Refill Paddy Zaidi MD Work Phone: [facility] Comment on above: Refill Request Start: 03-06-2024 End: 03-21-2024 Telephone encounter Raina Huynh MD Work Phone: Pulmonary Medicine Comment on above: Anticoagulation Start: 03-05-2024 End: 03-05-2024 ambulatory Pulm Lab [facility] Work Phone: [facility] Comment on above: Spirometry Start: 03-05-2024 End: 03-05-2024 Patient encounter procedure Pulm Lab [facility] Work Phone: [facility] Comment on above: Stage 3 severe COPD by GOLD classification ([facility]) (Primary Dx); Pneumonia of left lower lobe due to infectious organism; Lung nodules; Former smoker; Chronic hypoxemic respiratory failure (HCC) Start: 03-02-2024 End: 03-02-2024 ambulatory PADDY ZAIDI Facility:[facility] Start: 02-15-2024 End: 02-16-2024 Telephone encounter Paddy Zaidi MD Work Phone: [facility] Comment on above: Medication Problem Start: 02-14-2024 End: 02-14-2024 ambulatory HEVER MARTÍNEZ Facility:[facility] Start: 02-14-2024 End: 02-14-2024 Office outpatient visit 25 minutes Hever Martínez APRN.ASPHALT MIXER Work Phone: [facility] Comment on above: Pneumonia of right l ower lobe due to infectious organism (Primary Dx); Chronic obstructive pulmonary disease, unspecified COPD type (HCC); Adjustment disorder with mixed anxiety and depressed mood; Paroxysmal atrial fibrillation ([facility]); Encounter for immunization Start: 02-14-2024 End: 02-14-2024 Telephone encounter Hever Martínez APRN.ASPHALT MIXER Work Phone: [facility] Comment on above: Appointment Refill Request Start: 02-13-2024 End: 02-13-2024 Telephone encounter Paddy Zaidi MD Work Phone: [facility] Comment on above: [facility] Start: 02-07-2024 End: 02-07-2024 Emergency department patient visit Alpa Jeffries Facility:[facility] Start: 12-30-2023 End: 01-02-2024 Refill Paddy Zaidi MD Work Phone: [facility] Comment on above: Refill Request Start: 12-21-2023 End: 12-21-2023 Telephone encounter Paddy Zaidi MD Work Phone: [facility] Comment on above: Orders (Dasco annual oxygen rx) Start: 12-01-2023 End: 12-01-2023 Refill Paddy Zaidi MD Work Phone: [facility] Comment on above: Refill Request Start: 11-28-2023 End: 11-29-2023 Refill Paddy Zaidi MD Work Phone: [facility] Comment on above: Refill Request Start: 09-02-2023 ambulatory Sarah Robison RN Work Phone: [employer] Start: 08-25-2023 ambulatory Corrina GAN [employer] Start: 08-25-2023 Home visit Corrina Collazo [employer] Comment on above: Population Health Na vigation Outreach ([employer] Attributed Member- Needs 2023 Medicare Wellness Appt Scheduled/) Start: 08-03-2023 ambulatory Elenita Dey [facility] [place] Start: 08-03-2023 Patient encounter procedure Elenita Dey MA [facility] [place] Comment on above: Population Health Na vigation Outreach ([employer] AWV/HCC and care gaps /) Start: 07-11-2023 Refill Paddy quintana MD Work Phone: [facility] Comment on above: Refill Request Medication Request Start: 06-13-2023 Telephone encounter Paddy Zaidi MD Work Phone: [facility] Comment on above: Results (Labs ) Start: 06-07-2023 End: 06-07-2023 Patient encounter procedure Paddy Zaidi MD Work Phone: 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 Comment on above: Refill Request Start: 04-15-2023 ambulatory Corrina Barakat MA [facility] Comment on above: Population Health Na vigation Outreach ([employer] [facility] Start: 04-08-2023 Refill Paddy quintana MD Work Phone: [facility] Comment on above: Refill Request Start: 03-18-2023 Telephone encounter Paddy Zaidi MD Work Phone: [facility] Comment on above: Received Outside Med ical Records ([facility] ED 03/15/23) Start: 03-15-2023 End: 03-15-2023 Emergency department patient visit [facility] Work Phone: Start: 12-28-2022 Telephone encounter Paddy Zaidi MD Work Phone: [facility] Comment on above: Orders ([employer] annual oxygen prescription renewal ) Start: 09-23-2022 Telephone encounter Paddy Zaidi MD Work Phone: [facility] Comment on above: Received Outside Med ical Records ([facility] 09/22/22) Start: 09-22-2022 End: 09-22-2022 Emergency department patient visit [facility] Work Phone: Start: 08-20-2022 Telephone encounter Paddy Zaidi MD Work Phone: [facility] Comment on above: Patient Question Start: 06-22-2022 Telephone encounter Hever page WELDING TEACHER.ASPHALT MIXER Work Phone: [facility] Comment on above: Orders Start: 06-02-2022 End: 06-02-2022 Office outpatient visit 15 minutes Hever Santiago WELDING TEACHER.ASPHALT MIXER Work Phone: [facility] Comment on above: Pneumonia of right m iddle lobe due to infectious organism (Primary Dx); ED (erectile dysfunction) of organic origin; Adjustment disorder with mixed anxiety and depressed mood Start: 05-25-2022 ambulatory Hever Arce PRN.CNP Work Phone: 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) Start: 05-14-2022 Telephone encounter Paddy Zaidi MD Work Phone: [facility] Comment on above: Medication Problem Start: 04-27-2022 ambulatory Talia Hood [facility] [place] Comment on above: Population Health Na vigation Outreach ([facility]) Start: 03-30-2022 ambulatory Paddy quintana MD Work Phone: Internal Medicine [facility] [place] Start: 02-19-2022 Telephone encounter Paddy Zaidi MD Work Phone: [facility] Comment on above: Medication Problem Start: 01-18-2022 End: 01-18-[address] Shayne Zaidi Work Phone: [facility] Work Phone: Start: 01-18-2022 End: 01-18-[address] Shayne Zaidi Work Phone: [facility] Start: 12-28-2021 Telephone encounter Paddy Zaidi MD Work Phone: [facility] Comment on above: Received Outside Med ical Records (Pulmonary Medicine [facility]) Start: 12-28-2021 End: 12-28-[address] Shayne Zaidi Work Phone: [facility] Start: 12-25-2021 Telephone encounter Paddy Zaidi MD Work Phone: [facility] Comment on above: Received Outside Med ical Records ([facility] 12 lead EKG 12/16/2021 and 12/17/2021) Start: 12-23-2021 Non-patient / Non-visit Dr. Oscar Zaidi Work Phone: [facility] Start: 12-23-2021 Telephone encounter Paddy Zaidi MD Work Phone: [facility] Comment on above: Received Outside Med ical Records (EKG [facility]) Start: 12-23-2021 End: 12-23-2021 Patient encounter procedure Paddy Zaidi MD Work Phone: 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 Comment on above: Erroneous encounter- disregard Start: 12-21-2021 Telephone encounter Paddy Zaidi MD Work Phone: [facility] Comment on above: Received Outside Med ical Records ([facility] chest xray 12/18/2021) Received Outside Med ical Records ([facility] discharge instructions. 12/18/2021) Start: 12-18-2021 Non-patient / Non-visit Dr. Oscar Zaidi Work Phone: [facility] Start: 12-17-2021 Non-patient / Non-visit Dr. Oscar Zaidi Work Phone: [facility] Start: 12-17-2021 Telephone encounter Paddy Zaidi MD Work Phone: Family Practice Comment on above: Received Outside Med ical Records ([facility]) Start: 12-17-2021 End: 12-18-2021 Non-patient / Non-visit Dr. Shayne Zaidi Work Phone: [facility] Start: 12-16-2021 Non-patient / Non-visit Dr. Oscar Zaidi Work Phone: [facility] Start: 12-16-2021 Telephone encounter Paddy Zaidi MD Work Phone: Family Practice Comment on above: Received Outside Med ical Records ([facility] Cardiac Cath) Start: 12-16-2021 Non-patient / Non-visit Dr. Oscar Zaidi Work Phone: [facility] Start: 12-15-2021 Telephone encounter Paddy Zaidi MD Work Phone: Family Practice Comment on above: Received Outside Med ical Records ([facility] ED) Start: 12-15-2021 Non-patient / Non-visit Dr. Oscar Zaidi Work Phone: [facility] Start: 12-15-2021 Non-patient / Non-visit Dr. Oscar Zaidi Work Phone: [facility] Start: 12-14-2021 Non-patient / Non-visit Dr. Oscar Zaidi Work Phone: [facility] Start: 12-14-2021 Non-patient / Non-visit Dr. Oscar Zaidi Work Phone: [facility] Start: 12-14-2021 End: 12-18-2021 Evaluation and management of inpatient Dr. Shayne Zaidi Work Phone: [facility] Start: 11-13-2021 Refill Hever Pamela A PRN.ASPHALT MIXER Work Phone: [facility] Comment on above: Refill Request Start: 09-14-2021 Telephone encounter Hever Matosi ns WELDING TEACHER.ASPHALT MIXER Work Phone: [facility] Comment on above: Results Start: 09-09-2021 Refill Hever Pamela A PRN.ASPHALT MIXER Work Phone: [facility] Comment on above: Refill Request Start: 06-22-2021 End: 06-22-2021 Patient encounter procedure Hever Pamela WELDING TEACHER.ASPHALT MIXER Work Phone: [facility] Comment on above: Essential hypertensi on (Primary Dx); Pure hypercholesterolemia; Acquired hypothyroidism; Adjustment disorder with mixed anxiety and depressed mood; Peripheral polyneuropathy Start: 06-09-2021 Refill Paddy quintana MD Work Phone: [facility] Comment on above: Refill Request Start: 05-20-2021 Refill Paddy quintana MD Work Phone: [facility] Comment on above: Refill Request Procedures Date Procedure Procedure Detail Performing Clinician Start: 09-12-[address] Shayne Zaidi MD Work Phone: Start: 09-12-2024 X-ray of chest, PA a nd lateral views Dr. Shayne Zaidi MD Work Phone: Start: 09-11-[address] Rosales Zaidi MD Work Phone: Start: 09-10-2024 Legionella pneumophi la antigen assay Dr. Shayne Zaidi MD Work Phone: Start: 09-10-2024 Nucleic [...] Detail Author Start: 09-10-2027 [facility] Start: 06-30-2027 [facility] Start: 06-05-2026 [facility] Start: 06-29-2025 Hepatitis B surface antibody level LDL Cholesterol [facility] Start: 05-21-2025 DIABETES SCREEN DIABETES SCREEN [facility] Start: 05-21-2025 [facility] Start: 11-16-2024 End: 11-16-2024 Patient encounter procedure 11/16/2024 10:00 AM EDT Office Visit Cardiology [id number] [place] [address] [place] [address] [place], [place] [id number] Dx: Paroxysmal atrial fibrillation (HCC) [I48.0] Cardiology Comment on above: Dx: Paroxysmal atria l fibrillation (HCC) [I48.0] Start: 10-16-2024 End: 10-16-2024 Patient encounter procedure 10/16/2024 3:20 PM EDT Office Visit [address] [place] [address] Paddy Zaidi MD [address] [place] [address] [facility] Comment on above: follow up Start: 10-08-2024 Influenza vaccination Influenza Vacc ine (#1) [facility] Start: 10-02-2024 End: 10-02-2024 Patient encounter procedure 10/02/2024 2:00 PM EDT Office Visit Pulmonary Medicine [address] [place] [address] Flavia Smith APRN.ASPHALT MIXER [address] [place] [address] 3 MTH F/U / PT DECLINED EARLIER APPOINTMENT Pulmonary Medicine Comment on above: 3 MTH F/U / PT DECLI LUCILA EARLIER APPOINTMENT Start: 09-14-2024 DI[address]ETES SCREEN DI[address]ETES SCREEN [facility] Start: 09-12-2024 Patient discharge [facility] Start: 09-10-2024 Speech therapy assessment [facility] Start: 09-10-2024 Continuous positive airway pressure ventilation treatment [facility] Start: 09-10-2024 Referral to director volunteer services [facility] Start: 09-10-2024 Assessment of risk o f venous thromboembolism [facility] Start: 09-10-2024 Catheterization of vein [facility] Start: 09-10-2024 Insertion of cathete r into peripheral vein [facility] Start: 09-10-2024 Measuring intake and output [facility] Start: 09-10-2024 Oxygen therapy [facility] Start: 09-10-2024 Providing care accor ding to standard [facility] Start: 09-10-2024 Provision of activit y privileges [facility] Start: 09-10-2024 Referral to occupati onal therapist [facility] Start: 09-10-2024 Referral to service [facility] Start: 09-10-2024 Admission procedure [facility] Start: 09-10-2024 Following clinical pathway protocol [facility] Start: 09-10-2024 Consultation [facility] Start: 09-10-2024 End: 09-10-2024 [facility] Start: 07-13-2024 End: 07-13-2024 Patient encounter procedure 07/13/2024 4:20 PM EDT Office Visit Family Practice [address] [place], [place] [address] Paddy Zaidi MD [address] [place], [place] [id number] Foot issues follow up [facility] Comment on above: Foot issues follow u p Start: 06-26-2024 End: 06-26-2024 Patient encounter procedure Pulmonary Medicine Comment on above: 3 MTH F/U Start: 06-05-2024 Hepatitis B surface antibody level LDL Cholesterol [facility] Start: 03-27-2024 End: 03-27-2024 Patient encounter procedure Pulmonary Medicine Comment on above: f/up Pneumonia of left lo wer lobe due to infectious organism [J18.9]; Lung nodules [R91.8] Start: 03-27-2024 End: 03-27-2024 ambulatory 03/27/2024 1:30 PM EST Procedure PUL[facility] [address] [place] [address] W[facility], Pulm Lab [facility] [address] [place] [address] 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] [facility] Comment on above: 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] Start: 03-26-2024 End: 03-26-2024 Patient encounter procedure 03/26/2024 3:00 PM EST Office Visit [facility] [address] [place], [place] [id number] Paddy Zaidi MD [address] [place] [address] [place], [place] [id number] follow up [facility] Comment on above: follow up Start: 03-21-2024 End: 03-21-2024 Patient encounter procedure Pulmonary Medicine Comment on above: f/up Pneumonia of left lo wer lobe due to infectious organism [J18.9]; Lung nodules [R91.8] Start: 03-21-2024 End: 03-21-2024 ambulatory 03/21/2024 1:30 PM EST Procedure PUL[facility] LAB [facility] [address] [place] [address] [facility], Pulm Lab [facility] [address] [place] [address] 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] [facility] Comment on above: 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] Start: 03-14-2024 End: 03-14-2024 Patient encounter procedure Cat Scan Comment on above: Pneumonia of left lo wer lobe due to infectious organism [J18.9]; Lung nodules [R91.8] f/up Start: 03-14-2024 End: 03-14-2024 ambulatory 03/14/2024 12:30 PM EST Procedure [facility] [address] [place] [address] Wstr, Pulm Lab [facility] [address] [place] [address] 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] [facility] Comment on above: 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] Start: 02-21-2024 End: 05-22-2024 CBC panel - Blood by Automated count COMPLETE BLOOD COUNT Lab Routine Paroxysmal atrial fibrillation (HCC) Expected: 02/21/2024, Expires: 05/22/2024 [facility] Work Phone: Comment on above: Expected: 02/21/2024 , Expires: 05/22/2024 Start: 02-14-2024 End: 05-15-2024 Basic metabolic 2000 panel - Serum or Plasma BASIC METABOLIC PANEL Lab Routine Paroxysmal atrial fibrillation (HCC) Expected: 02/14/2024, Expires: 05/15/2024 [facility] Comment on above: Expected: 02/14/2024 , Expires: 05/15/2024 Start: 02-14-2024 End: 02-14-2024 Patient encounter procedure 02/14/2024 2:00 PM EST Office Visit Family Practice [address] [place], [place] [id number] Hever Martínez, NORA.ASPHALT MIXER [address] [place], [place] [id number] hosptial f/u breathing cold coughing touch of pneumonia Family Practice Comment on above: hosptial f/u breathi ng cold coughing touch of pneumonia Start: 02-08-2024 Advance Directive Discussion Advance Directive Discussion [facility] Start: 02-08-2024 Medicare Advantage A nnual Wellness Visit Medicare Advantage Annual Wellness Visit [facility] Start: 12-18-2023 DIABETES SCREEN DIABETES SCREEN [facility] Start: 10-09-2023 Covid-19 Vaccine ( season) Covid-19 Vaccine () [facility] Start: 10-09-2023 Influenza vaccination C [facility] Start: 07-08-2023 End: 07-08-2023 Patient encounter procedure 07/08/2023 3:40 PM EDT Office Visit Family Practice [address] [place], [place] [id number] Paddy Zaidi MD [address] [place], [place] [address] [address] [facility] Comment on above: 1 month follow up Start: 06-23-2023 End: 06-23-2023 Patient encounter procedure 06/23/2023 3:20 PM EDT Office Visit Family Practice [address] [place], [place] [id number] Paddy Zaidi MD [address] [place], [place] [id number] MEDICARE WELLNESS [id number] 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 Comment on above: anxiety, Start: 05-27-2023 End: 08-26-2023 CBC panel - Blood by Automated count COMPLETE BLOOD COUNT Lab Routine Essential hypertension Mixed hyperlipidemia Peripheral polyneuropathy Expected: 05/27/2023, Expires: 08/26/2023 [facility] Comment on above: Expected: 05/27/2023 , Expires: 08/26/2023 Start: 05-27-2023 End: 08-26-2023 Comprehensive metabolic 2000 panel - Serum or Plasma COMPREHENSIVE METABOLIC PANEL Lab Routine Essential hypertension Expected: 05/27/2023, Expires: 08/26/2023 [facility] Work Phone: Comment on above: Expected: 05/27/2023 , Expires: 08/26/2023 Start: 05-27-2023 End: 08-26-2023 Hemoglobin A1c in Blood HEMOGLOBIN A1C Lab Routine Peripheral polyneuropathy Expected: 05/27/2023, Expires: 08/26/2023 [facility] Comment on above: Expected: 05/27/2023 , Expires: 08/26/2023 Start: 05-27-2023 End: 08-26-2023 Lipid 1996 panel - Serum or Plasma LIPID PANEL BASIC Lab Routine Mixed hyperlipidemia Expected: 05/27/2023, Expires: 08/26/2023 [facility] Comment on above: Expected: 05/27/2023 , Expires: 08/26/2023 Start: 05-27-2023 End: 08-26-2023 Thyrotropin [Units/volume] in Serum or Plasma THYROID STIMULATING HORMONE Lab Routine Hypothyroidism, unspecified type Expected: 05/27/2023, Expires: 08/26/2023 [facility] Comment on above: Expected: 05/27/2023 , Expires: 08/26/2023 Start: 05-22-2023 Hepatitis B surface antibody level LDL CHOLESTEROL [facility] Start: 03-15-2023 [facility] Start: 03-15-2023 Inhalation therapy procedure [facility] Start: 02-07-2023 Advance Directive Discussion Advance Directive Discussion [facility] Start: 12-23-2022 SHINGRIX VACCINE (1 of 2) SMALL GRIX VACCINE (1 of 2) [facility] Comment on above: Postponed from 10/05 (Declined at this time) Start: 12-23-2022 Urine microalbumin profile DTAP,TDAP,TD (1 - Tdap) [facility] Comment on above: Postponed from 10/05 (Declined at this time) Start: 10-08-2022 Covid-19 Vaccine () Covid-19 Vaccine () [facility] Start: 10-08-2022 Influenza vaccination C [facility] Start: 05-21-2022 End: 07-21-2022 Natriuretic peptide.B prohormone N-Terminal [Mass/volume] in Serum or Plasma NT PRO BNP Lab Routine 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) SOB (shortness of breath) Expected: 05/21/2022, Expires: 07/21/2022 [facility] Work Phone: Comment on above: Expected: 05/21/2022 , Expires: 07/21/2022 Start: 03-30-2022 End: 05-30-2022 CBC panel - Blood by Automated count CBC Lab Routine Medication management Expected: 03/30/2022, Expires: 05/30/2022 [facility] Work Phone: Comment on above: Expected: 03/30/2022 , Expires: 05/30/2022 Start: 03-30-2022 End: 05-30-2022 SCHEDULE LAB TESTING SCHEDULE LAB TESTING Lab Routine Expected: 03/30/2022, Expires: 05/30/2022 [facility] Work Phone: Comment on above: Expected: 03/30/2022 , Expires: 05/30/2022 Start: 03-30-2022 End: 05-30-2022 Thyrotropin [Units/volume] in Serum or Plasma TSH BLD Lab Routine Acquired hypothyroidism Expected: 03/30/2022, Expires: 05/30/2022 [facility] Work Phone: Comment on above: Expected: 03/30/2022 , Expires: 05/30/2022 Start: 02-07-2022 ADVANCE DIRECTIVE DISCUSSION ADVANCE DIRECTIVE DISCUSSION [facility] Start: 12-23-2021 Patient referral [facility] Work Phone: Start: 12-18-2021 Patient discharge [facility] Work Phone: Start: 12-18-2021 [facility] Work Phone: Start: 12-17-2021 Referral to occupati onal therapist [facility] Work Phone: Start: 12-17-2021 Referral to service [facility] Work Phone: Start: 12-17-2021 Hepatitis B surface antibody level LDL CHOLESTEROL [facility] Start: 12-16-2021 End: 12-17-2021 [facility] Work Phone: Start: 12-16-2021 Cardiac monitoring [facility] Work Phone: Start: 12-16-2021 Cardiac rehabilitati on - phase 1 [facility] Work Phone: Start: 12-16-2021 Cardiac rehabilitati on - phase 2 [facility] Work Phone: Start: 12-16-2021 Notification of physician [facility] Work Phone: Start: 12-16-2021 Patient discharge [facility] Work Phone: Start: 12-16-2021 Systemic arterial pressure monitoring [facility] Work Phone: Start: 12-16-2021 Taking patient vital signs [facility] Work Phone: Start: 12-16-2021 Vascular disease ris k assessment [facility] Work Phone: Start: 12-16-2021 Vital signs measurements [facility] Work Phone: Start: 12-15-2021 Care planning and pr oblem solving actions [facility] Work Phone: Start: 12-15-2021 Patient referral [facility] Work Phone: Start: 12-15-2021 Catheterization of vein [facility] Work Phone: Start: 12-15-2021 Medication not administered [facility] Work Phone: Start: 12-15-2021 [facility] Work Phone: Start: 12-14-2021 Care planning and pr oblem solving actions [facility] Work Phone: Start: 12-14-2021 Ambulation without limitation [facility] Work Phone: Start: 12-14-2021 Assessment of risk o f venous thromboembolism [facility] Work Phone: Start: 12-14-2021 Catheterization of vein [facility] Work Phone: Start: 12-14-2021 Chart related administrative procedure [facility] Work Phone: Start: 12-14-2021 Elevation of head of bed [facility] Work Phone: Start: 12-14-2021 Insertion of cathete r into peripheral vein [facility] Work Phone: Start: 12-14-2021 Measuring intake and output [facility] Work Phone: Start: 12-14-2021 Medication education [facility] Work Phone: Start: 12-14-2021 Oxygen therapy [facility] Work Phone: Start: 12-14-2021 Patient education [facility] Work Phone: Start: 12-14-2021 Providing care accor ding to standard [facility] Work Phone: Start: 12-14-2021 Referral to director volunteer services [facility] Work Phone: Start: 12-14-2021 [facility] Work Phone: Start: 12-14-2021 Troponin I measurement [facility] Work Phone: Start: 12-14-2021 Bacteria identified in Sputum by Culture [facility] Work Phone: Start: 12-14-2021 Legionella pneumophi la Ag [Presence] in Urine [facility] Work Phone: Start: 12-14-2021 Streptococcus pneumo niae antigen assay [facility] Work Phone: Start: 12-14-2021 [facility] Work Phone: Start: 12-14-2021 End: 12-14-2021 Following clinical pathway protocol [facility] Work Phone: Start: 12-14-2021 Verification routine [facility] Work Phone: Start: 12-14-2021 Admission procedure [facility] Work Phone: Start: 12-14-2021 [facility] Work Phone: Start: 10-08-2021 Influenza vaccination INFLUENZA (#1) [facility] Start: 09-10-2021 End: 11-10-2021 Basic metabolic 2000 panel - Serum or Plasma BASIC METABOLIC PNL Lab Routine Essential hypertension Hypokalemia Expected: 09/10/2021, Expires: 11/10/2021 [facility] Work Phone: Comment on above: Expected: 09/10/2021 , Expires: 11/10/2021 Start: 02-07-2021 ADVANCE DIRECTIVE DISCUSSION ADVANCE DIRECTIVE DISCUSSION [facility] Start: 08-25-2020 COVID-19 VACCINE (3 - Booster for Moderna series) COVID-19 VACCINE (3 - Booster for Moderna series) [facility] Start: 05-23-2020 COVID-19 VACCINE (3 - Booster for Moderna series) COVID-19 VACCINE (3 - Booster for Moderna series) [facility] Start: 05-23-2020 COVID-19 VACCINE (3 - Moderna series) COVID-19 VACCINE (3 - Moderna series) [facility] Start: 10-05-2014 RSV Vaccine (1 - 1-d ose 75+ series) RSV Vaccine (1 - 1-dose 75+ series) [facility] Start: 1999 RSV Vaccine (1 - 1-d ose 60+ series) RSV Vaccine (1 - 1-dose 60+ series) [facility] Start: 10-05-1989 SHINGRIX VACCINE (1 of 2) SMALL GRIX VACCINE (1 of 2) [facility] Start: 10-05-1958 Urine microalbumin profile [facility] Start: 10-05-1957 SPIROMETRY SPIROMETRY [facility] End: 04-04-2025 CT Chest WO contrast CT CHEST WO IVCON Radiology Routine Pneumonia of left lower lobe due to infectious organism Lung nodules 1 Occurrences starting 03/05/2024 until 04/04/2025 [facility] Work Phone: Comment on above: 1 Occurrences starti ng 03/05/2024 until 04/04/2025 CT Chest WO contrast CT CHEST WO IVCON Radiology Routine Pneumonia of left lower lobe due to infectious organism Lung nodules 03/27/2024 3:54 PM EST [facility] Work Phone: ECG COMPLETE ECG COMPLETE ECG Routine 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) Paroxysmal atrial fibrillation (HCC) 05/21/2022 3:54 PM EDT [facility] Work Phone: OXIMETRY - NOCTURNAL OXIMETRY - NOCTURNAL Procedures Routine Hypoxia Ordered: 03/27/2024 [facility] Work Phone: Comment on above: Ordered: 03/27/2024 End: 04-04-2025 OXIMETRY WITH AMBULATION OXIMETRY WITH AMBULATION PFT Routine 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) 1 Occurrences starting 03/05/2024 until 04/04/2025 [facility] Comment on above: 1 Occurrences starti ng 03/05/2024 until 04/04/2025 Patient Education [facility] Work Phone: Patient referral [facility] Work Phone: End: 02-15-2025 PT panel - Platelet poor plasma by Coagulation assay PROTHROMBIN TIME Lab Routine Chronic atrial fibrillation (HCC) [facility] current use of anticoagulant therapy Once per week for 52 Occurrences starting 02/16/2024 until 02/15/2025 [facility] Work Phone: Comment on above: Once per week for 52 Occurrences starting 02/16/2024 until 02/15/2025 End: 06-20-2023 Radiologic exam chest 2 views XR CHEST 2V FRONTAL/LAT Radiology Routine 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) Paroxysmal atrial fibrillation (HCC) SOB (shortness of breath) 1 Occurrences starting 05/21/2022 until 06/20/2023 [facility] Work Phone: Comment on above: 1 Occurrences starti ng 05/21/2022 until 06/20/2023 Radiologic exam ches t 2 views XR CHEST 2V FRONTAL/LAT Radiology Routine Pneumonia of right middle lobe due to infectious organism Ordered: 06/02/2022 [facility] Work Phone: Comment on above: Ordered: 06/02/2022 End: 07-06-2024 SIX MINUTE WALK SIX MINUTE WALK PFT Routine 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) Hypoxemia 1 Occurrences starting 06/07/2023 until 07/06/2024 [facility] Comment on above: 1 Occurrences starti ng 06/07/2023 until 07/06/2024 Troponin I measurement [facility] Work Phone: End: 07-06-2024 XR Chest PA and Lateral XR CHEST 2V FRONTAL/LAT Radiology Routine 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) SOB (shortness of breath) 1 Occurrences starting 06/07/2023 until 07/06/2024 [facility] Work Phone: Comment on above: 1 Occurrences starti ng 06/07/2023 until 07/06/2024 [facility] Immunizations Immunization Date Immunization Notes Care Provider Fa cili 02-14-2024 influenza, high dose seasonal, preservative-free 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 Work Phone: [facility] 02-14-2024 influenza virus vacc ine, unspecified formulation Paddy Zaidi MD Work Phone: [facility] 12-17-2020 influenza, high-dose , quadrivalent vaccine (FLUZONE HIGH DOSE QUADRIVALENT) Paddy Zaidi MD Work Phone: [facility] 12-17-2020 influenza virus vacc ine, unspecified formulation Paddy Zaidi MD Work Phone: [facility] 03-28-2020 COVID-19 vaccine, fu ll dose (MODERNA) Paddy Zaidi MD Work Phone: [facility] 02-29-2020 COVID-19 vaccine, fu ll dose (MODERNA) Paddy Zaidi MD Work Phone: [facility] 07-31-2019 pneumococcal polysaccharide vaccine, 23 valent Paddy Zaidi MD Work Phone: [facility] 07-31-2019 pneumococcal vaccine , unspecified formulation Dr. Shayne Zaidi Work Phone: [facility] 01-12-[address] Shayne Zaidi Work Phone: [facility] 01-12-2018 influenza, high dose seasonal, preservative-free Paddy Zaidi MD Work Phone: [facility] 01-12-2018 influenza, seasonal, injectable Paddy Zaidi MD Work Phone: [facility] 01-12-2018 influenza, seasonal, injectable, preservative free Paddy Zaidi MD Work Phone: [facility] 01-12-2018 pneumococcal polysaccharide vaccine, 23 valent Paddy Zaidi MD Work Phone: [facility] 01-12-2018 pneumococcal vaccine , unspecified formulation Paddy Zaidi MD Work Phone: [facility] 03-31-2017 pneumococcal conjuga te vaccine, 13 valent Paddy Zaidi MD Work Phone: [facility] 12-08-[address] Shayne Zaidi Work Phone: [facility] 12-08-2016 influenza, seasonal, injectable Paddy Zaidi MD Work Phone: [facility] 12-08-2016 influenza, seasonal, injectable, preservative free Paddy Zaidi MD Work Phone: [facility] 11-27-2016 influenza, high dose seasonal, preservative-free Paddy Zaidi MD Work Phone: [facility] Work Phone: 12-01-2013 influenza virus vacc ine, whole virus Paddy Zaidi MD Work Phone: [facility] 11-23-2012 influenza virus vacc ine, unspecified formulation Paddy Zaidi MD Work Phone: [facility] 01-16-2010 pneumococcal polysaccharide vaccine, 23 valent Paddy Zaidi MD Work Phone: [facility] 12-09-2009 influenza virus vacc ine, unspecified formulation Paddy Zaidi MD Work Phone: [facility] 12-23-2008 influenza virus vacc ine, unspecified formulation Paddy Zaidi MD Work Phone: [facility] Work Phone: Payers Date Payer Category Payer Self-pay [id number] 2021 Medicare [id number] 2021 Medicare AETNA MEDICARE A ETNA MEDICARE PPO [id number] 2021-Present [phone] [address] [place] [address] PPO [id number] 2021 Medicare (Managed Care) AETNA ME DICARE [id number] 2014 Private Health Insurance [id number] 2009 Medicare AETNA MEDICARE A ETNA MEDICARE PPO [id number] 2009-Present [phone] [address] [place] [address] PPO [id number] Medicare MEDICARE PART A B [id number] Unknown [id number] Unknown [id number] Unknown [id number] Unknown [id number] Unknown [id number] Unknown [id number] Unknown [id number] Social History Date Type Detail Facility Start: 02-01-2017 End: 09-10-2024 Tobacco smoking status NHIS Ex-smoker [facility] Start: 10-17-1967 End: 10-16-1992 History of tobacco use Current smoker [facility] Start: 10-17-1967 End: 10-16-1992 History of tobacco use Cigarette Smoker [facility] Start: 12-17-2020 End: 09-09-2024 Alcohol intake Current non-drinker of alcohol (finding) [facility] Start: 1940 Sex Assigned At Not on file C [facility] Start: 06-12-2021 End: 12-23-2021 Exposure to SARS-CoV-2 (event) Not sure [facility] Start: 02-01-2017 End: 07-20-2022 Cigarettes smoked current (pack per day) - Reported 2 [facility] Start: 02-01-2017 End: 03-05-2024 Tobacco use and exposure Smokeless tobacco non-user [facility] Start: 12-14-2021 End: 03-15-2023 Tobacco smoking status MIIS Unknown if ever smoked [facility] Start: 07-28-2019 None [facility] Start: 07-28-2019 Spouse/ Signif icant Other [facility] Start: 07-28-2019 Non-smoker [facility] Start: 1940 Sex Assigned At Male [facility] Start: 06-02-2022 End: 07-20-2022 Tobacco use panel [facility] Adult Depression Screening Assessment 0 [facility] Medical Equipment Procedure Code Equipment Code Equipment [...] X3 Insert for MDM FDA Start: 07-24-2018 ([id number]) Drug-eluting cor onary artery stent, bioabsorbable-polymer -coated ()[id number] FDA Start: 12-16-2021 6.5MM CANNULATED SCREW FDA [...] Assessment Result Facility 09-12-2024 Functional status Ambulates [facility] Work Phone: 12-18-2021 Functional status Chair [facility] Work Phone: 07-29-2014 Are you deaf, or do you have serious difficulty hearing No 07/29/2014 10:56 AM Sindhu Quiroz Ma No [facility] 07-29-2014 Are you blind, or do you have serious difficulty seeing, even when wearing glasses No 07/29/2014 10:56 AM Sindhu Quiroz Ma No [facility] 07-29-2014 Do you have serious difficulty walking or climbing stairs No 07/29/2014 10:56 AM Sindhu Quiroz Ma No [facility] 07-29-2014 Do you have difficul ty dressing or bathing No 07/29/2014 10:56 AM Sindhu Quiroz Ma No [facility] 07-29-2014 Because of a physica l, mental, or emotional condition, do you have difficulty doing errands alone such as visiting a physician's office or shopping No 07/29/2014 10:56 AM Sindhu Quiroz Ma No [facility] Mental Status Date Assessment Result Facility 09-12-2024 Cognitive function Voice/Name [facility] Work Phone: 12-18-2021 Cognitive function Voice/Name [facility] Work Phone: 07-29-2014 Because of a physica l, mental, or emotional condition, do you have serious difficulty concentrating, remembering, or making decisions No 07/29/2014 10:56 AM Sindhu Quiroz Ma No [facility] Clinical Notes 05-21-2021 to 09-12-2024 Note Date & Type Note Facility 09-12-2024 Progress note Note Date/Time September 12, 2024 3:09pm [facility] Medical Records Department [address] [place] [address] Progress Note - Hospitalist 09/11/24 1616 MR#: [id number] Acct: [id number] Name: ARTURO PEDERSEN Rep #:[id number] : 1940 83 From: Aayush Sibley DO PCP: Dr. Shayne Zaidi MD Status:ADM IN Location: [place] [address] Reason for Visit Chief Complaint: Shortness of [...] 50 minutes Charges/Coding Visit Charges Inpatient E&M: 91265 Subs Hosp L3 09/12/24 1509 <Electronically signed by Aayush Sibley DO> Cosigner Signature (if applicable): CC: ~ Signed [facility] Work Phone: 1(216) 233-539908-06-2025 Discharge summary Author [facility] Note Date/Time September 12, 2024 3:0 3pm [facility] Medical Records Department [address] [place] [address] Instructions for Home/Discharge Instructions 09/12/24 1439 MR#: [id number] Acct: [id number] Name: ARTURO PEDERSEN Rep #:[id number] : 1940 83 From: Aayush Sibley DO [...] Kristopher Ray; John Nayak; Rosalino Asif; Patricia Buredn; Martínez Mclean; Omar Hidalgo; Arturo Rose NP; [...] rechecked) Jenny Yancey PA [Med Staff - Replaced By [facility]] - Within 2 Weeks (Call for an appointment) Disposition Disposition (needs filled in before D/C Order can be placed): Home, Self Care 09/12/24 9933<Electronically signed by Aayush Sibley DO>Aayush Sibley DO [...] MD; JI Valencia; JI Burgos ~ Signed [facility] Work Phone: 1(972) 245-728008-06-2025 Progress note [facility] Medical Records Department [address] [place] [address] Progress Note - Hospitalist 09/11/24 1616 MR#: [id number] Acct: [id number] Name: ARTURO PEDERSEN Rep #:[id number] : 1940 83 From: Aayush Sibley DO PCP: Dr. Shayne Zaidi MD Status:ADM IN Location: [place] [address] 1 Reason for Visit Chief Complaint: Shortness [...] 50 minutes Charges/Coding Visit Charges Inpatient E&M: 87011 Subs Hosp L3 09/12/24 1509 Cosigner Signature (if applicable): CC: ~ Signed [facility]08-06-2025 Discharge summary [facility] Medical Records Department [address] [place] [address] Instructions for Home/Discharge Instructions 09/12/24 1439 MR#: [id number] Acct: [id number] Name: ARTURO PEDERSEN Rep #:[id number] : 1940 83 From: Ayaush Sibley DO PCP: Dr. Shayne Zaidi MD [...] rechecked) Jenny Yancey PA [Med Staff - Replaced By [facility]] - Within 2 Weeks (Call for an appointment) Disposition Disposition (needs filled in before D/C Order can be placed): Home, Self Care 09/12/24 1503Mark Maryjo MENDOZA CC: TUFTING SUPERVISORShena Rose; Dr. Douglas Alegre MD; Dr. Ranjit [...] Mclean MD; JI Valencia;JI Burgos ~ Signed [facility]08-06-2025 Hospital Discharge instructionsAdditional Instructions Date of Discharge: 09/12/24[facility] Work Phone: 1(424) 347-573508-06-2025 Radiology Diagnostic study note [facility] Imaging Services [address] [place] [address] Chest PA and Lateral MR#: [id number] Acct: [id number] Name: ARTURO PEDERSEN Rep #: [id number] : 1940 M 83 From: Fatmata Wheeler MD PCP: Dr. Shayne Zaidi MD Status: ADM IN Study:Chest PA and Lateral Date of Exam: 09/12/24 Exam# [id number] Ordering Dr: Aayush Adams DO PROCEDURE: CHEST [...] seen on recent comparison CT Reading Location: [facility]- CC: Dr. Shayne Zaidi MD; Dr. Aayush Sibley DO ~ Vice President Of Instruction: Signed [facility]08-05-[address] [facility] Speech Pathology [address] [place] [address] Modified Barium Swallow Study MR#: [id number] Acct: [id number] Name: ARTURO PEDERSEN Rep #:[id number] : 1940 83 From: Uyen Silva Modified [...] palpitations, or GI/ symptoms. A CXR at [facility] showed right hemidiaphragm elevation and left [...] Result: 5= enters airways/contacts vocal folds/not ejected [place] Thick Liquid via small single sip: cup: Result: 2= enter airway/above vocal folds/ejected [place] Thick Liquid via small single sip: cup Trial 2: Result: 3= enters airways/above vocal folds/not ejected [place] Thick Liquid via small single sip: cup [...] Cookie: Result: 1= does not enter airway [place] Thick Liquid via small single sip: cup [...] Status Active ST Patient: Active Contact Information [facility] Speech Therapy:: Uyen Silva M.A., CCC-PIPEFITTER Speech-Language Pathologist [facility] [phone]? ?FAX [phone]? ?[email or web address] [address] [place] [address]? ?[place] [address] 09/11/24 1330 > Date/Time Uyen Silva Co-Signature Required for all Medicare patients Date/Time Co-Signature CC: ~ [facility]08-05-2025 Progress note Author Dallas Muller [facility] Note Date/Time September 11, 2024 7:4 4am [facility] Medical Records Department [address] [place] [address] Progress Note - Cardiology 09/11/24740 MR#: [id number] Acct: [id number] Name: ARTURO PEDERSEN Rep #:[id number] : 1940 83 From: Dallas Muller MD PCP: Dr. Shayne Zaidi MD Status:ADM IN Location: [place] [address]- Subjective Subjective Patient seen and evaluated Objective [...] was an occluded right coronary artery with weki-jj-jcksl collaterals. * In light of his negative [...] will continue with high intensity statin. 09/11/24 6045 <Electronically signed by Dallas Muller MD> Cosigner Signature (if applicable): CC: ~ Signed [facility] Work Phone: 1(424) 500-277808-05-2025 Progress note [facility] Medical Records Department [facility] [place] [address] Progress Note - Cardiology 09/11/24 0780 MR#: [id number] Acct: [id number] Name: ARTURO PEDERSEN Rep #:[id number] : 1940 83 From: Dallas Muller MD PCP: Dr. Shayne Zaidi MD Status:ADM IN Location: [place] [address] Subjective Subjective Patient seen and evaluated Objective [...] was an occluded right coronary artery with jefu-ks-hzhen collaterals. * In light of his negative [...] Cosigner Signature (if applicable): CC: ~ Signed [facility]08-04-2025 Progress note Author A[facility]ush [facility] Note Date/Time September 10, 2024 7:2 6pm [facility] Medical Records Department [address] [place] [address] Progress Note - Hospitalist 09/10/241924 MR#: [id number] Acct: [id number] Name: ARTURO PEDERSEN Rep #:[id number] : 1940 83 From: Aayush Sibley DO PCP: Dr. Shayne Zaidi MD Status:ADM IN Location: [place] [address] Hospitalist Note Patient was seen and examined [...] Cosigner Signature (if applicable): CC: ~ Signed [facility] Work Phone: 1(684) 291-617908-04-2025 Progress note [facility] Medical Records Department [address] [place] [address] Progress Note - Hospitalist 09/10/241924 MR#: [id number] Acct: [id number] Name: ARTURO PEDERSEN Rep #:[id number] : 1940 83 From: Aayush Sibley DO PCP: Dr. Shayne Zaidi MD Status:ADM IN Location: [place] [address] Hospitalist Note Patient was seen and examined briefly today, I have reviewed his medical record,I think that it is unlikely the patient has a significant aspiration pneumonia, nonetheless, I have elected to keep thepatient on antibiotics for now but transition him over to oral antibiotics. I talked briefly with cardiology, theyrecommended adjusting the patient's beta-karis. 09/10/241925 Cosigner Signature (if applicable): CC: ~ Signed [facility]08-04-2025 Consult note Author Dallas Muller [facility] Note Date/Time September 10, 2024 8:0 3am [facility] Medical Records Department [address] [place] [address] Consultation - Cardiology 09/10/24750 MR#: [id number] Acct: [id number] Name: ARTURO PEDERSEN Rep #:[id number] : 1940 83 From: Dallas Muller MD PCP: Dr. Shayne Zaidi MD Status:ADM IN Location: [place] [address] Assessment & Plan Assessment/Plan (1) Paroxysmal atrial [...] was an occluded right coronary artery with jrex-ei-radvz collaterals. * In light of his negative [...] per se. He was apparently sent to [facility] and a chest x-ray that I [...] is pleasantly confused but no other problems. [facility] Medical History Atherosclerosis of coronary artery of [place] heart without angina pectoris Prostate CA Stroke [...] 94.5 H, Lymph % (Auto) 2.2 L, [place] % (Auto) 2.8, Eos % (Auto) 0.0, [...] Clarity Clear, Urine pH 6.0, Ur Specific [place] 1.010, Urine Protein Negative, Urine Glucose (UA) [...] 94.5 H, Lymph % (Auto) 2.2 L, [place] % (Auto) 2.8, Eos % (Auto) 0.0, [...] Clarity Clear, Urine pH 6.0, Ur Specific [place] 1.010, Urine Protein Negative, Urine Glucose (UA) [...] disease, correlate for aspiration pneumonia. Reading Location: [place] [address] 09/10/24 0803 <Electronically signed by Dallas Muller MD> Cosigner Signature (if applicable): CC: Dr. Shayne Zaidi MD~ Signed [facility] Work Phone: 1(535) 246-763108-04-2025 NoteHNO ID: [id number] Author: SERA KLINE RN Service: ? Author Type: Registered Nurse Type: Progress Notes Filed: 09/10/2024 10:00 Note Text: Summary: ED Utilization review per request of eula Saab ED Follow-Up Note Provider Action / FYI: Chest pain, pneumonia, CHF Call completed by: RN Patient seen in ED: In Network ED Contact made with Patient: Karen Pt was transferred to [facility] for admission 09/09/24. Sera Kline RN September 10, 2024 9:53 [facility]08-04-2025 History of Present illness Narrative* Sera Kline RN - 09/10/2024 9:51 AM EDTSummary: ED Utilization review per request of payor - [employer] ED Follow-Up Note Provider Action / FYI: Chest pain, pneumonia, CHF Call completed by: RN Patient seen in ED: In [facility] ED Contact made with Patient: Karen Pt was transferred to [facility] for admission 09/09/24. Sera Kline RN September 10, 2024 9:53 AM documented in [facility] encounterM[facility] History and physical note Author Kristopher Diamond [facility] Note Date/Time September 10, 2024 6:2 5am [facility] Medical Records Department [address] [place] [address] H&P Exam - Hospitalist 09/10/24 0118 MR#: [id number] Acct: [id number] Name: ARTURO PEDERSEN Rep #:[id number] : 1940 83 From: Kristopher Yusuf DO PCP: Dr. Shayne Zaidi MD Status:ADM IN Location: [place] [id number]- 1 HPI - General General Date of [...] apnea; on CPAP, CAD; s/p non-ST elevation [place] with subsequent CABG x 2 (1992) and [...] hours as needed who was transferred from [facility] with complaints of shortness of breath, [...] dysuria, hematuria, headache, confusion or rash. At [facility] ER he was noted to have a [...] is expected to extend beyond 2 midnights. [facility] Medical History Atherosclerosis of coronary artery of [place] heart without angina pectoris Prostate CA Stroke [...] 03:19 09/10/24 03:19 Labs: RUN DATE: 09/10/24 [facility], DEPARTMENT OF LABORATORIES PAGE 1 RUN TIME: 622 Specimen Inquiry [address], [place], [address] PATIENT: ARTURO PEDERSEN LOC: [facility] U #: [id number] : 1940 AGE/SX: 83/M FACILITY: [facility] ROOM: [facility] RE09/10/[address]: Heidy Wilkerson STATUS:ADM IN ED: 1 DIS: ~ SPEC #: [id number] ANASTACIO: 09/10/24 STATUS: COMP REQ #: [id number] RECD: 09/10/[address]: Dr. Kristopher Valencia, [...] the following risk-cutoff thresholds for the [place] population. TRIG 42 mg/dL The drugs N-Acetylcysteine [...] and age. CHOL:HDL 2.30 CLDL 40 mg/dL Rlwyoltoqt=743-425 mg/dL & Higher Ztoc=439 mg/dL or greater Friedwald Equation for LDL-C VLDL 8 5-40 mg/dL TSH 0.518 0.300-4.200 uIU/mL Vitamin B12 515 180-914 pg/mL proBNP 3825 H <=1800 pg/mL Heart Failure Unlikely: < 300 pg/mL Heart Failure Likely < 50 Years: > 450 pg/mL 50-75 Years: > 900 pg/mL >75 Years: > 1800 pg/mL ABG Data ABG results: RUN DATE: 09/10/24 [facility], DEPARTMENT OF LABORATORIES PAGE 1 RUN TIME: 0438 Specimen Inquiry [address], [place], [place], [id number] PATIENT: ARTURO PEDERSEN LOC: [facility] U #: [id number] : 1940 AGE/SX: 83/M FACILITY: [facility] ROOM: [facility] RE09/10/[address]: Heidy Wilkerson STATUS:ADM IN ED: 1 DIS: ~ SPEC #: [id number] ANASTACIO: 09/10/24 STATUS: COMP REQ #: [id number] RECD: 09/10/[address]: Dr. Kristopher Valencia [...] H 23-33 mmol/L END OF REPORT Imaging [facility] Imaging Services [address] [place] [address] Chest without Contrast MR#: [id number] Acct: [id number] Name: ARTURO PEDERSEN Rep #: [id number] : 1940 M 83 From: Jad Wheeler MD PCP: Dr. Shayne Zaidi MD Status: ADM IN Study: Chest without Contrast Date of Exam: 09/10/24 Exam# [id number] Ordering Dr: Kristopher Valencia DO PROCEDURE: CHEST [...] disease, correlate for aspiration pneumonia. Reading Location: [place] [address] CC: Dr. Kristopher Valencia DO; Dr. Shayne Zaidi MD ~ Vice President Of Instruction: Signed Assessment & Plan Assessment/Plan (1) Aspiration [...] twice daily. Give acetaminophen as needed for qutl-cl-byagttmm (level 1-5/10) pain or fever. Continue tramadol [...] previous. Serialize troponin. Finally, we will consult [facility] to see this patient on [...] 75 minutes. Charges/Coding Visit Charges Inpatient E&M: 35976 Init Hosp L3 09/10/24 0625 <Electronically signed by Kristopher Valencia DO> Cosigner Signature (if applicable): CC: Dr. Kristopher Valencia DO; Dr. Shayne Zaidi MD~ Signed [facility] Work Phone: 1(566) 324-990008-04-2025 Consult note [facility] Medical Records Department [address] [place] [address] Consultation - Cardiology 09/10/24 0751 MR#: [id number] Acct: [id number] Name: ARTURO PEDERSEN Rep #:[id number] : 1940 83 From: Dallas Muller MD PCP: Dr. Shayne Zaidi MD Status:ADM IN Location: [place] [address] 1 Assessment & Plan Assessment/Plan (1) Paroxysmal [...] was an occluded right coronary artery with bxka-gs-ermzj collaterals. * In light of his negative [...] pain per se. He wasapparently sent to [facility] and a chest x-ray that I [...] is pleasantly confused but no other problems. [facility] Medical History Atherosclerosis of coronary artery of [place] heart without angina pectoris Prostate CA Stroke [...] 94.5 H, Lymph % (Auto) 2.2 L, [place] % (Auto) 2.8, Eos % (Auto) 0.0, [...] Clarity Clear, Urine pH 6.0, Ur Specific [place] 1.010, Urine Protein Negative, Urine Glucose (UA) [...] 94.5 H, Lymph % (Auto) 2.2 L, [place] % (Auto) 2.8, Eos % (Auto) 0.0, [...] Clarity Clear, Urine pH 6.0, Ur Specific [place] 1.010, Urine Protein Negative, Urine Glucose (UA) [...] disease, correlate for aspiration pneumonia. Reading Location: [place] [address] 09/10/24 0803 Cosign Signature (if applicable): CC: Dr. Shayne Zaidi MD~ Signed [facility]08-04-2025 History and physical note [facility] Medical Records Department [address] [place] [address] H&P Exam - Hospitalist 09/10/24 0118 MR#: [id number] Acct: [id number] Name: ARTURO PEDERSEN Rep #:[id number] : 1940 83 From: Kristopher Yusuf DO PCP: Dr. Shayne Zaidi MD Status:ADM [facility] HPI - General General Date [...] apnea; on CPAP, CAD; s/p non-ST elevation [place] with subsequent CABG x 2 (1992) and [...] hours as needed who was transferred from [facility] with complaints of shortness of breath, [...] dysuria, hematuria, headache, confusion or rash. At [facility] ER he was noted to have a [...] is expected to extend beyond 2 midnights. [facility] Medical History Atherosclerosis of coronary artery of [place] heart without angina pectoris Prostate CA Stroke [...] 03:19 09/10/24 03:19 Labs: RUN DATE: 09/10/24 [facility], DEPARTMENT OF LABORATORIES PAGE 1 RUN TIME: 622 Specimen Inquiry [address] [facility] [place], [address] PATIENT: ARTURO PEDERSEN LOC: [facility] U #: [id number] : 1940 AGE/SX: 83/M FACILITY: [facility] ROOM: [facility] RE09/10/[address]: Heidy Wilkerson STATUS:ADM IN ED: 1 DIS: ~ SPEC #: [id number] ANASTACIO: 09/10/24 STATUS: COMP REQ #: [id number] RECD: 09/10/[address]: Dr. Kristopher Valencia [...] the following risk-cutoff thresholds for the [place] population. TRIG 42 mg/dL The drugs N-Acetylcysteine [...] and age. CHOL:HDL 2.30 CLDL 40 mg/dL Gadjrnwtny=988-414 mg/dL & Higher Jamt=555 mg/dL or greater Friedwald Equation for LDL-C VLDL 8 5-40 mg/dL TSH 0.518 0.300-4.200 uIU/mL Vitamin B12 515 180-914 pg/mL proBNP 3825 H <=1800 pg/mL Heart Failure Unlikely: < 300 pg/mL Heart Failure Likely < 50 Years: > 450 pg/mL 50-75 Years: > 900 pg/mL >75 Years: > 1800 pg/mL ABG Data ABG results: RUN DATE: 09/10/24 [facility], DEPARTMENT OF LABORATORIES PAGE 1 RUN TIME: 0438 Specimen Inquiry [address] [place], [place], [id number] PATIENT: ARTURO PEDERSEN LOC: [facility] U #: [id number] : 1940 AGE/SX: 83/M FACILITY: [facility] ROOM: [facility] RE09/10/[address]: Heidy Wilkerson STATUS:ADM IN ED: 1 DIS: ~ SPEC #: [id number] ANASTACIO: 09/10/24 STATUS: COMP REQ #: [id number] RECD: 09/10/[address]: Dr. Kristopher Valencia, [...] H 23-33 mmol/L END OF REPORT Imaging [facility] Imaging Services [address] [place], [place] [address] Chest without Contrast MR#: [id number] Acct: [id number] Name: ARTURO PEDERSEN Rep #: [id number] : 1940 M 83 From: Jad Wheeler MD PCP: Dr. Shayne Zaidi MD Status: ADM IN Study: Chest without Contrast Date of Exam: 09/10/24 Exam# [id number] Ordering Dr: Kristopher Valencia DO PROCEDURE: CHEST [...] disease, correlate for aspiration pneumonia. Reading Location: [place] [address] CC: Dr. Kristopher Valencia DO; Dr. Shayne Zaidi MD ~ Vice President Of Instruction: Signed Assessment & Plan Assessment/Plan (1) Aspiration [...] twice daily. Give acetaminophen as needed for nzxs-rd-uvhrajgk (level 1-5/10) pain or fever. Continue tramadol [...] previous. Serialize troponin. Finally, we will consult [facility] to see this patient on [...] 75 minutes. Charges/Coding Visit Charges Inpatient E&M: 53258 Init Hosp 09/10/24 0633 Cosigner Signature (if applicable): CC: Dr. Kristopher Valencia DO; Dr. Shayne Zaidi MD~ Signed [facility]08-04-2025 Evaluation note* Diagnosis Onset Date Resolution Status [...] HTN (hypertension) chronic September 10, 2024 1:26am [facility] Work Phone: 1(144) 736-496208-04-2025 Radiology Diagnostic study note [facility] Imaging Services [address] [place], [place] [address] Chest without Contrast MR#: [id number] Acct: [id number] Name: ARTURO PEDERSEN Rep #: [id number] : 1940 M 83 From: Fatmata Wheeler MD PCP: Dr. Shayne Zaidi MD Status: ADM IN Study:Chest without Contrast Date of Exam: 09/10/24 Exam# [id number] Ordering Dr: Kristopher Yang DO PROCEDURE: CHEST [...] disease, correlate for aspiration pneumonia. Reading Location: [place] [address] CC: Dr. Kristopher Valencia DO; Dr. Shayne Zaidi MD ~ Vice President Of Instruction: Signed [facility]08-04-2025 NotePatient Outreach ([facility]) ARTURO PEDERSEN ([id number]) 1940 M Date Time Provider Department 09/10/24 SERA KLINE [facility] During your visit today, we recorded the following information about you: Sera Kline RN 09/10/2024 10:00 AM Signed ED Follow-Up Note Provider Action / FYI: Chest pain, pneumonia, CHF Call completed by: RN Patient seen in ED: In Network ED Contact made with Patient: Karen Pt was transferred to [facility] for admission 09/09/24. Sera Kline RN September 10, 2024 9:53 AM Allergies As of Date: 09/10/2024 Noted Allergy Reaction ASPIRIN 04/19/2018 16 - Unknown OXYCODONE 04/19/2018 14 - Other: See Comments PERCODAN (OXYCODONE-ASPIRIN) 12/17/2004 1 - Mental Status Change Date Reviewed: 09/09/2024 Reviewed by: Daina Sampson RN - Fully Assessed Reason for Visit: ACM DELMIS RN [9548] Cmt: ED Utilization review per request of [...] Anxiety [F41.9] 12/23/2021 Atherosclerotic heart disease of [place] coronar*10/19/2017 Cerebrovascular accident (CVA) (HCC) [I63.9] 12/23/2021 [...] 02/14/2024 Encounter Status:Closed by SERA KLINE on 09/10/24[facility] 09-09-2024 VeedFEIG-NBY-5 (AGENT OF COVID-19) RNA: Not detected INFLUENZA A RNA: Not detected INFLUENZA B RNA: Not detected RESPIRATORY SYNCYTIAL VIRUS (RSV) RNA: Not detectedMount Desert Island HospitalComment on above:Performed By: #### [id number] #### [facility] CLIA [id number] [address] [place], [place] [address]80308-02-2025 Telephone encounter Note* Telephone Encounter - Yudelka [...] seek emergency treatment and she verbalized understanding. [facility]08-02-2025 Miscellaneous Notes* Telephone Encounter - Yudelka Harris [...] call back when she returns home to [facility]. Idid inform her not to hesitate to seek emergency treatment and she verbalized understanding. documented in this encounterMarietta [facility] Clinic07-30-2025 Telephone encounter Note * Telephone Encounter - Shwetha Kendrick - 09/05/2024 4:33 PM EDT Lvm and letter Provider only at [place] now [facility]07-30-2025 Miscellaneous Notes* Telephone Encounter - Shwetha Kendrick - 09/05/2024 4:33 PM EDT Lvm and letter Provider only at [place] now documented in this encounterMarietta [facility] Clinic07-08-2025 Telephone encounter Note * Telephone Encounter - Vivi Shaffer MA - 08/14/2024 2:04 PM EDT Pharmacy verified in [facility] Patient has been identified by name and [...] Not applicable Please advise. Vivi Shaffer MA [facility]07-08-2025 Miscellaneous Notes* Telephone Encounter - Vivi Shaffer MA - 08/14/2024 2:04 PM EDT Pharmacy verified in [facility] Patient has been identified by name and [...] advise. Vivi Shaffer MA documented in this encounterMarietta Osteopathic Clinic06-06-2025 NoteHNO ID: [id number] Author: PADDY ZAIDI MD Service: ? Author Type: Physician Type: Progress Notes Filed: 07/13/2024 17:45 Note Text: Subjective Adrian Pedersen is an 83-year-old male with a history of anxiety, presenting with dyspnea, lower extremity edema, and anxiety attacks, accompanied by his caregiver, Hui Ray, who is providing additional history. Dyspnea atherosclerotic heart disease: Pending electophys eval in [place] in November. No regular director volunteer services. 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 Atherosclerosis of [place] coronary artery of [place] heart without angina pectoris (I25.10) - Referral to cardiology in [place] initiated for further evaluation and management. - [...] - Prescription sent to pharmacy. Recording using [employer] software for draft documentation of the visit was discussed with the patient/authorized claim service representative; all questions welcomed and answered. Patient/authorized claim service representative agreed to proceed Paddy Zaidi [facility]06-06-2025 History of Present illness Narrative* Paddy Zaidi MD - 07/13/2024 5:40 PM EDT Subjective Adrian Pedersen is an 83-year-old male with a history of anxiety, presenting with dyspnea, lower extremity edema, and anxiety attacks, accompanied by his caregiver, Hui Ray, who is providing additional history. Dyspnea atherosclerotic heart disease: Pending electophys eval in [place] in November. No regular director volunteer services. 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 Atherosclerosis of [place] coronary artery of [place] heart without angina pectoris (I25.10) - Referral to cardiology in [place] initiated for further evaluation and management. - [...] - Prescription sent to pharmacy. Recording using [employer] software for draft documentation of the visit was discussed with the patient/authorized claim service representative; all questions welcomed and answered. Patient/authorized claim service representative agreed to proceed Paddy Zaidi MD documented in this encounterMarietta [facility]opathic Clinic06-06-2025 Telephone encounter Note * Telephone Encounter - Flavia Smith APRN.CNP - 07/13/2024 4:37 PM EDT Review of OSH CT with most recent CT does not show worsening of right hemidiaphragm. Left lower lobe nodule no longer seen. Atelectasis in LLL but no further concern for PNA. Needs to complete overnight oxygen testing. [facility]06-06-2025 Miscellaneous Notes* Telephone Encounter - Flavia Smith APRN.CNP - 07/13/2024 4:37 PM EDT Review of OSH CT with most recent CT does not show worsening of right hemidiaphragm. Left lower lobe nodule no longer seen. Atelectasis in LLL but no further concern for PNA. Needs to complete overnight oxygen testing. documented in this encounterMarietta Osteopathic Clinic06-06-2025 Telephone encounter Note * Telephone Encounter - [...] ZAIDI Due for appt. Paddy Zaidi MD [facility]06-06-2025 Miscellaneous Notes* Telephone Encounter - Paddy Zaidi [...] 13, 2024 1:41 PM documented in this encounterMarietta Osteopathic Clinic06-06-2025 Telephone encounter Note * Telephone Encounter - [...] Summers LPN July 13, 2024 1:41 PM [facility]06-05-2025 Telephone encounter Note* Telephone Encounter - Talia [...] Ann LPN July 12, 2024 11:46 AM [facility]06-05-2025 Miscellaneous Notes* Telephone Encounter - Talia Ann [...] 12, 2024 11:46 AM documented in this encounterMarietta Osteopathic Clinic05-27-2025 Telephone encounter Note * Telephone Encounter - Mary Zalidvar RN - 07/03/2024 9:38 AM EDT Spoke to Hui who said patient is taking coumadin daily - believes it is 1 pill a day but is not with patient/able to check. States she was unaware that INR needed to be completed - has not been monitored. OV tomorrow Would you like to make changes at this time or wait until OV? [facility]05-27-2025 Miscellaneous Notes* Telephone Encounter - Mary Zaldivar [...] - 06/29/2024 3:43 PM EDT Called patient's complex care nurse Hui and patient's son, no answer at [...] Is he taking coumadin? documented in this encounterMarietta Osteopathic Clinic05-23-2025 Telephone encounter Note * Telephone Encounter - Gloria Florian RN - 06/29/2024 3:43 PM EDT Called patient's complex care nurse Hui and patient's son, no answer at this time. Left voicemail to call the office back. [facility]05-23-2025 Telephone encounter Note* Telephone Encounter - Georgiana Hogue APRN.SHANNAN - 06/29/2024 3:37 PM EDT Please advise the patient that his INR (no units) Date Value 06/29/2024 1.2 is very too low/subtherapeutic. INR has not been checked in 3 months. Has someone else been monitoring this? Is he taking coumadin? [facility] Work Phone: 1(250) 179-304905-23-2025 NoteHNO ID: [id number] Author: FLAVIA SMITH APRN.SHANNAN Service: ? Author Type: Nurse Practitioner Type: Progress Notes Filed: 06/29/2024 19:32 Note Text: Pulmonary Medicine Patients name: Arturo Campbell PCP: Paddy Zaidi MD CC: follow-up HPI: Arturo Pedersen is a 83 year old male former 71-zzpy-moci smoker quitting in 1992 with PMH significant for obesity, coronary artery disease s/p CABG and stent, previous stroke, GERD, HLD, prostate cancer s/p radiation, HTN, PAF on AC, central sleep apnea not wearing PAP, chronic hypoxemic respiratory failure. Current inhaled therapy Advair and PRN Albuterol. He presents today for follow-up with his provider network analyst. YOLANDA 03/2024 with exertional dyspnea, chest tightness and wheezing. Started on Advair at that time. Oximetry with ambulation at that time did not show need for supplemental O2 with exertion. He and his provider network analyst insist he can't even stand up without [...] appearance. He is not ill-appearing. Comments: Very [place] HENT: Head: Normocephalic. Nose: No rhinorrhea. Mouth/Throat: Mouth: Mucous membranes are moist. Pharynx: No oropharyngeal exudate. Cardiovascular: (more content not included)...[facility] 06-21-2024 NoteHNO ID: [id number] Author: CORRINA FUENTES MA Service: ? Author Type: Basic Acoustic Analyst Type: Progress Notes Filed: 06/21/2024 08:30 Note Text: POPULATION HEALTH NAVIGATION OUTREACH Action/FYI Letter received and sent to be mailed. Navigation Signature: Corrina Fuentes MA June 21, 2024 8:30 [facility]05-14-2025 NoteHNO ID: [id number] Author: ANT DIAS MA Service: ? Author Type: Basic Acoustic Analyst Type: Progress Notes Filed: 06/20/2024 08:24 Note [...] Healthy at Home (H@H) phone number provided [phone]: Yes via letter Reason for Outreach Value Hub Care Gaps due: Medicare Annual Wellness Visit Patient Contacted: Unable or unnecessary to reach patient: Unable to leave message Letter mailed Navigation Signature: Ant Dias MA June 20, 2024 8:22 [facility]05-13-2025 Telephone encounter Note* Telephone Encounter - Paddy [...] once daily. Authorizing Provider: PADDY ZAIDI MD [facility]05-13-2025 Miscellaneous Notes* Telephone Encounter - Paddy Zaidi [...] 18, 2024 1:48 PM documented in this encounterMarietta Osteopathic Clinic05-12-2025 Telephone encounter Note * Telephone Encounter - [...] Ann LPN June 18, 2024 1:48 PM [facility]05-12-2025 NoteHNO ID: [id number] Author: ANT DIAS MA Service: ? Author Type: Basic Acoustic Analyst Type: Progress Notes Filed: 06/18/2024 12:47 Note [...] Healthy at Home (H@H) phone number provided [phone]: No Reason for Outreach Value [facility] Care Gaps due: Medicare Annual Wellness Visit Patient Contacted: Unable or unnecessary to reach patient: Unable to leave message Navigation Signature: Ant Dias MA June 18, 2024 12:44 [facility]05-12-2025 History of Present illness Narrative* Ant Dias [...] Healthy at Home (H@H) phone number provided [phone]: No Reason for Outreach Value Hub Care [...] 18, 2024 12:28 PM documented in this encounterMarietta Osteopathic Clinic05-12-2025 NoteHNO ID: [id number] Author: BRAYAN STALLWORTH RN Service: ? Author [...] Brayan Stallworth RN June 18, 2024 12:28 [facility]05-12-2025 NotePatient Outreach ([facility]) ARTURO PEDERSEN ([id number]) 1940 M Date Time Provider Department 06/18/24 [...] Healthy at Home (H@H) phone number provided [phone]: No Reason for Outreach Value Hub Care Gaps due: Medicare Annual Wellness Visit Patient Contacted: Unable or unnecessary to reach patient: Unable to leave message Navigation Signature: Ant Dias MA June 18, 2024 12:44 PM Ant Dias MA 06/20/2024 8:24 AM Signed [facility] NAVIGATION OUTREACH Action/FYI Patient is on Value [...] Healthy at Home (H@H) phone number provided [phone]: Yes via letter Reason for Outreach Value [...] Date Reviewed: 03/27/2024 Reviewed by: Flavia Smith APRN.ASPHALT MIXER - Fully Assessed Reason for Visit: Population Health Navigation Outreach [3910] Cmt: Value [facility] Prescriptions as of 06/21/2024 [...] 09/26/2012 Obstructive sleep apnea (more content not included)...[facility] 04-26-2024 NoteHNO ID: [id number] Author: TALIA FERREIRA MA Service: ? Author Type: Basic Acoustic Analyst Type: Progress Notes Filed: 04/26/2024 14:42 Note [...] Talia Ferreira MA April 26, 2024 2:37 [facility] History of Present illness Narrative* Talia Ferreira [...] 26, 2024 2:37 PM documented in this encounterMarietta Osteopathic Clinic03-20-2025 NotePatient Outreach (NETNAV) ARTURO PEDERSEN ([id number]) 1940 M Date Time Provider Department 04/26/24 [...] Date Reviewed: 03/27/2024 Reviewed by: Flavia Smith APRN.ASPHALT MIXER - Fully Assessed Reason for Visit: Population [...] Anxiety [F41.9] 12/23/2021 Atherosclerotic heart disease of [place] coronar*10/19/2017 Cerebrovascular accident (CVA) (HCC) [I63.9] 12/23/2021 [...] 02/14/2024 Encounter Status:Closed by TALIA FERREIRA on 04/26/24[facility] 04-09-2024 Miscellaneous Notes* Telephone Encounter - Talia [...] 09, 2024 11:10 AM documented in this encounterMarietta Osteopathic Clinic03-03-2025 Telephone encounter Note * Telephone Encounter - [...] Ann LPN April 09, 2024 11:10 AM [facility]02-18-2025 History of Present illness Narrative* Deanne Samuels [...] PATIENT PRESENTS WITH AN IMPLANTABLE OR ATTACHED WAFER MACHINE OPERATOR: No RADIOLOGY DEPARTMENT: CT; Exam(s) Completed: Chest PERIPHERAL IV DATA: Not applicable SIGNED BY: RT Alfonso(R) March 27, 2024 3:57 PM documented in this encounterMarietta Osteopathic Clinic02-18-2025 NoteHNO ID: [id number] Author: DEANNE SAMUELS RT(R) Service: ? Author Type: Night Custodian Type: Progress Notes Filed: 03/27/2024 15:57 Note [...] PATIENT PRESENTS WITH AN IMPLANTABLE OR ATTACHED WAFER MACHINE OPERATOR: No RADIOLOGY DEPARTMENT: CT; Exam(s) Completed: Chest PERIPHERAL IV DATA: Not applicable SIGNED BY: RT Alfonso(R) March 27, 2024 3:57 [facility]02-18-2025 Instructions* Patient Instructions* Flavia Smith APRN.CNP - [...] I get the results. documented in this encounterMarietta Osteopathic Clinic02-18-2025 History of Present illness Narrative* Flavia Smith APRN.CNP - 03/27/2024 2:00 PM EST Images from the original note were not included. Pulmonary Medicine Patients name: Arturo Campbell PCP: Paddy Zaidi MD CC: follow-up HPI: Arturo Pedersen is a 83 year old male former 84-mdxm-smun smoker quitting in 1992 with PMH significant [...] Had also just previously been hospitalized at [facility] for Pneumonia. At his last visit, he [...] chest tightness. Has frequent wheezing that promptshis provider network analyst to remind him to use Albuterol. No [...] 160-9-4.8 mcg/actuation HFA aerosol inhaler Generic drug: wpnaifhwrj-lkdbxrlh-ohzskxqjoq Inhale 2 Puffs as instructed two times [...] Stage 3 severe COPD by GOLD classification ([facility]) - ICD9: 496, ICD10: J44.9 (primary diagnosis) [...] which included preparing to see the patient, zyjf-iz-gurx patient care, completing clinical documentation, performing a medically appropriate examination, counseling and educating the patient/family/caregiver, and ordering medications, tests,or procedures. documented in this encounterMarietta Osteopathic Clinic02-18-2025 NoteHNO ID: [id number] Author: FLAVIA SMITH APRN.SHANNAN Service: ? Author Type: Nurse Practitioner Type: Progress Notes Filed: 03/27/2024 17:53 Note Text: Pulmonary Medicine Patients name: Arturo Campbell PCP: Paddy Zaidi MD CC: follow-up HPI: Arturo Pedersen is a 83 year old male former 52-gadf-txrs smoker quitting in 1992 with PMH significant [...] Had also just previously been hospitalized at [facility] for Pneumonia. At his last visit, he [...] tightness. Has frequent wheezing that prompts his provider network analyst to remind him to use Albuterol. No [...] 160-9-4.8 mcg/actuation HFA aerosol inhaler Generic drug: ybhkjjxfib-nxzxphsl-syaualbumc Inhale 2 Puffs as instructed two times [...] appearance. HENT: Head: [place] (more content not included)...[facility]02-18-2025 NoteHNO ID: [id number] Author: SHELLY SIMS RPFT Service: ? Author [...] Comment: Patient does not have a faster paceUniversity [facility]als [facility]02-[facility]25 Procedure note* Shelly Sims RPFT - 03/27/2024 [...] Patient does not have a faster pace [facility]02-18-2025 Procedure note* Shelly Sims RPFT - 03/27/2024 [...] have a faster pace documented in this encounterMarietta Osteopathic Clinic02-18-2025 NoteHNO ID: [id number] Author: SHELLY SIMS RPFT Service: ? Author Type: Respiratory Therapist Type: Progress Notes Filed: 03/27/2024 13:50 Note Text: PULM FUNCTION: Provider: Raina Huynh MD Assisting Tech: Shelly Sims RPFT Oximetry - Ambulation: [facility]25 History of Present illness Narrative* Shelly Sims RPFT - 03/27/2024 1:47 PM EST PULM FUNCTION: Provider: Raina Huynh MD Assisting Tech: Shelly Sims RPFT Oximetry - Ambulation: 1 documented in this encounterMarietta Osteopathic Clinic02-12-2025 Telephone encounter Note * Telephone Encounter - [...] this week, but they declined. Lacie Muñoz [facility]02-12-2025 Miscellaneous Notes* Telephone Encounter - Lacie Muñoz [...] warrant medical attention. FYI documented in this encounterMarietta Osteopathic Clinic02-12-2025 Telephone encounter Note * Telephone Encounter - Hever Martínez APRN.CNP - 03/21/2024 12:52 PM EST Please offer appointment with Dr. Zaidi this week Hever Martínez APRN.ASPHALT MIXER [facility]02-12-2025 Telephone encounter Note* Telephone Encounter - Isabell Sood RN - 03/21/2024 12:24 PM EST Hui states patient was supposed to have a refill of the Lasix after an OV on 02/14/2024, it was not prescribed. Has been out since that visit. Please address. Rx pended. [facility]02-12-2025 Miscellaneous Notes* Telephone Encounter - Isabell Sood RN - 03/21/2024 12:24 PM EST Hui states patient was supposed to have a refill of the Lasix after an OV on 02/14/2024, it was not prescribed. Has been out since that visit. Please address. Rx pended. documented in this encounterMarietta Osteopathic Clinic02-12-2025 Telephone encounter Note * Telephone Encounter - [...] ED if sx warrant medical attention. FYI [facility]02-12-2025 Telephone encounter Note* Telephone Encounter - Isabell Sood RN - 03/21/2024 11:56 AM EST Spoke to Hui and patient at length. Patient will take 7.5 mg of Coumadin tomorrow then resume taking 2.5 mg like he has been. Will have BW done around 03/29. Tracker done [facility]02-12-2025 Miscellaneous Notes* Telephone Encounter - Isabell Sood RN - 03/21/2024 11:56 AM EST Spoke to Hui and patient at length. Patient will take 7.5 mg of Coumadin tomorrow then resume taking 2.5 mg like he has been. Will have BW done around 03/29. Tracker done * Telephone Encounter - Natalia Massey RN - 03/19/2024 10:52 AM EST Called [phone]. No answer. Mailbox still full. * Telephone Encounter - Violetta Humphrey RN - 03/17/2024 9:30 AM EST Called Hui at [phone] Vm still full-could not leave message. Called [...] one dose. Check INR in 2 weeks Pdady Zaidi MD * Telephone Encounter - Violetta Humphrey RN - 03/16/2024 12:59 PM EST Spoke to Hui- states he has been taking warfarin every day, 2.5 mg. Never misses a day. Call Hui back with response [phone]-did advise her to clean out VM so [...] advise. Paddy Zaidi MD documented in this encounterMarietta Osteopathic Clinic02-11-2025 NoteHNO ID: [id number] Author: ELENITA DEY MA Service: ? Author Type: Basic Acoustic Analyst Type: Progress Notes Filed: 03/20/2024 16:32 Note [...] Elenita Dey MA March 20, 2024 4:29 [facility]02-11-2025 History of Present illness Narrative* Elenita Dey [...] 20, 2024 4:29 PM documented in this encounterMarietta Osteopathic Clinic02-11-2025 NotePatient Outreach (NETNAV) ARTURO PEDERSEN ([id number]) 1940 M Date Time Provider Department 03/20/24 [...] TABLET BY MOUTH ONCE DAILY DIRECTED - hqevtlywdb-tmkcmbyg-yguawpkmfp (BREZTRI AEROSPHERE) 160-9-4.8 mcg/actuation HFA aerosol inhaler [...] Anxiety [F41.9] 12/23/2021 Atherosclerotic heart disease of [place] coronar*10/19/2017 Cerebrovascular accident (CVA) (HCC) [I63.9] 12/23/2021 [...] 02/14/2024 Encounter Status:Closed by ELENITA DEY on 03/20/24[facility] 03-19-2024 Telephone encounter Note* Telephone Encounter - Natalia Massey RN - 03/19/2024 10:52 AM EST Called [phone]. No answer. Mailbox still full. [facility]02-08-2025 Telephone encounter Note* Telephone Encounter - Violetta Humphrey RN - 03/17/2024 9:30 AM EST Called Hui at [phone] Vm still full-could not leave message. Called all other listed numbers- no answer. VM's are all full-could not leave message. Not active on MyChart. Will need to try again later. Violetta Humphrey RN [facility]02-07-2025 Telephone encounter Note* Telephone Encounter - Paddy Zaidi MD - 03/16/2024 5:19 PM EST Just take 1 time dose of 5 mg. One extra pill just one dose. Check INR in 2 weeks Paddy Zaidi MD [facility]02-07-2025 Telephone encounter Note* Telephone Encounter - Violetta Humphrey RN - 03/16/2024 12:59 PM EST Spoke to Hui- states he has been taking warfarin every day, 2.5 mg. Never misses a day. Call Hui back with response [phone]-did advise her to clean out VM so we can leave messages. Violetta Humphrey RN [facility]02-04-2025 Telephone encounter Note* Telephone Encounter - Talia [...] Ann LPN March 13, 2024 8:22 AM [facility]02-04-2025 Miscellaneous Notes* Telephone Encounter - Talia Ann [...] 13, 2024 8:22 AM documented in this encounterMarietta Osteopathic Clinic02-03-2025 Telephone encounter Note * Telephone Encounter - Karo Wilkinson RN - 03/12/2024 2:40 PM EST Called pt, no answer. LVM to call office back [facility]01-29-2025 Telephone encounter Note* Telephone Encounter - Violetta Humphrey RN - 03/07/2024 9:48 AM EST Called all numbers listed in chart- no answer. No VM available to leave message. Not on MYChart. Will need to try again later. Violetta Humphrey RN [facility]01-28-2025 Telephone encounter Note* Telephone Encounter - Paddy Zaidi MD - 03/06/2024 2:03 PM EST INR is a little low , have you been taking warfarin 2.5 mg daily every day? May need to increase dose a bit. Please review with patient and advise. Paddy Zaidi MD [facility]01-28-2025 Telephone encounter Note* Telephone Encounter - Edwina De León LPN - 03/06/2024 9:57 AM EST Breztri and Trelegy both showing as preferred level 1 in orders tab. Per [employer] SERS plan formulary list, preferred brand name drugs come with 25% copay (max of $100) per 30 day supply. Patient also has the option of mail order for max copay of $200 for a 90 day supply. Spoke with patient's son Gila re: same. If medication is cost prohibitive we could see if SW can inquire about medication assistance. Edwina De León LPN [facility]01-28-2025 Miscellaneous Notes* Telephone Encounter - Edwina De León LPN - 03/06/2024 9:57 AM EST Breztri and Trelegy both showing as preferred level 1 in orders tab. Per [employer] SERS plan formulary list, preferred brand name [...] 9:27 AM EST Analilia - Pharmacist from [facility] calling and asking if there is an alternative to the Breztri inhaler? Patient has a $100.00 copay and is unable to afford it. documented in this encounterMarietta [facility] Clinic01-28-2025 Telephone encounter Note * Telephone Encounter - Judy Wong MA - 03/06/2024 9:27 AM EST Analilia - Pharmacist from [facility] calling and asking if there is an alternative to the Breztri inhaler? Patient has a $100.00 copay and is unable to afford it. [facility]01-27-2025 History of Present illness Narrative* Raina Huynh MD - 03/05/2024 3:15 PM EST Images from the original note were not included. . Respiratory [place] Note Patient name: Arturo Pedersen PCP: Paddy Zaidi MD Referring Physician: Hever Martínez CNP Consultation requested by Hever Martínez for an opinion regarding COPD. My final recommendations willbe communicated back to the requesting physician by way of shared Medical record or letter to requesting physician via US mail. CC: COPD HPI: Arturo Pedersen 83 year old male former 03-qwit-rsog smoker quitting in 1992 with PMH significant for obesity, coronary artery disease s/p CABG and stent, previous stroke, GERD, HLD, prostate cancer s/p radiation, HTN, PAF on AC, central sleep apnea not wearing PAP, chronic hypoxemic respiratory failure being sent for evaluation of COPD. Recently hospitalized at [facility] for[facility]. CT of the chest shows [...] recurrent bronchitis. DME: [employer] DATA: PFT: PFT [facility] 10/23/2018; FVC 2.41 L 57% FEV1 1.62 L 54% FEV1/FVC 67% No improvement post-bronchodilator TLC 5.01 L 76% RV 2.60 L 94% RV/TLC 52% DLCO 15.2 73% Imaging / Diagnostic Studies: [facility] MR#: [id number] Acct: [id number] Name: ARTURO PEDERSEN Rep #: [id number] : 1940 M 83 From: Shayne Holt [...] the tongue every 5 minutes as needed. oumaglkqry-mpuxoqtl-yzlztwtmby (BREZTRI AEROSPHERE) 160-9-4.8 mcg/actuation HFA aerosol inhaler [...] use: No Drug use: No Worked at [employer] for 32 years Pets: None FAMILY HISTORY Problem Relation Age of Onset Heart Father Prostate Cancer Father Alzheimer's Disease Mother PAST SURGICAL HISTORY Procedure Laterality Date ARTHRP ACETBLR/PROX FEM PROSTC AGRFT/ALGRFT CABG (2) VEIN GRAFTS & ARTERIAL GRAFT(S PAST SURGICAL HISTORY OF 07/24/2018 removal of hardware, left thr radiation for prostate cancer TREAT HIP FRACTURE(S) Left 11/2017 hip screw placed [facility] PMH, Social history, family history and surgical [...] -Ambulation oximetry testing Raina Huynh MD Respiratory [place] documented in this encounterMarietta Osteopathic Clinic01-27-2025 NoteHNO ID: [id number] Author: RAINA HUYNH MD Service: ? Author Type: Physician Type: Progress Notes Filed: 03/05/2024 16:00 Note Text: . Respiratory [place] Note Patient name: Arturo Pedersen PCP: Paddy Zaidi MD Referring Physician: Hever Martínez CNP Consultation requested by Hever Martínez for an opinion regarding COPD. My final recommendations will be communicated back to the requesting physician by way of shared Medical record or letter to requesting physician via US mail. CC: COPD HPI: Arturo Pedersen 83 year old male former 73-gafk-rnay smoker quitting in 1992 with PMH significant for obesity, coronary artery disease s/p CABG and stent, previous stroke, GERD, HLD, prostate cancer s/p radiation, HTN, PAF on AC, central sleep apnea not wearing PAP, chronic hypoxemic respiratory failure being sent for evaluation of COPD. Recently hospitalized at [facility] for pneumonia. CT of the chest [...] recurrent bronchitis. DME: [employer] DATA: PFT: PFT [facility] 10/23/2018; FVC 2.41 L 57% FEV1 1.62 L 54% FEV1/FVC 67% No improvement post-bronchodilator TLC 5.01 L 76% RV 2.60 L 94% RV/TLC 52% DLCO 15.2 73% Imaging / Diagnostic Studies: [facility] MR#: [id number] Acct: [id number] Name: ARTURO PEDERSEN Rep #: [id number] : 1940 83 From: Shayne Holt MD [...] the tongue every 5 minutes as needed. vyangghmzc-bymecfvt-ddtahldyzl (BREZTRI AEROSPHERE) 160-9-4.8 mcg/actuation HFA aerosol inhaler [...] by mouth every morning. (more content not included)...[facility]01-27-2025 NoteHNO ID: [id number] Author: SHELLY SIMS RPFT Service: ? Author Type: Respiratory Therapist Type: Progress Notes Filed: 03/05/2024 15:09 Note Text: PULM FUNCTION: Provider: Raina Huynh MD Assisting Tech: Shelly Sims RPFT Spirometry w/BD: 1 DLCO: [facility] History of Present illness Narrative * Shelly Sims RPFT - 03/05/2024 3:04 PM EST PULM FUNCTION: Provider: Raina Huynh MD Assisting Tech: Shelly Sims RPFT Spirometry w/BD: 1 DLCO: 1 documented in this encounterMarietta Osteopathic Clinic01-09-2025 Telephone encounter Note * Telephone Encounter - Talia Ann LPN - 02/16/2024 10:21 AM EST Patients son aware that medication was sent to [facility] in [place]. Son stated he understood that blood work needed drawn in 1 week in [place]. [facility]01-09-2025 Miscellaneous Notes* Telephone Encounter - Talia Ann LPN - 02/16/2024 10:21 AM EST Patients son aware that medication was sent to [facility] in [place]. Son stated he understood that blood work needed drawn in 1 week in [place]. * Telephone Encounter - Paddy Zaidi MD [...] can cut this back to 1x per esrgio . Paddy Zaidi MD * Telephone Encounter [...] of symptoms: N/A Hui Call patient at: [phone] (home) [phone] (cell) Was an appointment scheduled: No Closing statement: Corrina Riggins documented in this encounterMarietta Osteopathic Clinic01-09-2025 Telephone encounter Note * Telephone Encounter - [...] 1x per sergio . Paddy Zaidi MD [facility]01-08-2025 Telephone encounter Note* Telephone Encounter - Ozzy [...] of symptoms: N/A Hui Call patient at: [phone] (home) [phone] (cell) Was an appointment scheduled: No Closing statement: Corrina Trudi Ozzy Riggins [facility] Work Phone: [phone] Telephone encounter Note* Telephone Encounter - Paddy Zaidi MD - 02/14/2024 5:18 PM EST The following approved medication requests have been transmitted electronically. Requested Prescriptions Signed Prescriptions Disp Refills ELIQUIS 5 mg tab(s) 180 tablet 3 Sig: Take 1 tablet by mouth two times a day. Authorizing Provider: PADDY ZAIDI MD [facility]01-07-2025 Miscellaneous Notes* Telephone Encounter - Paddy Zaidi [...] Thank you. Varsha Byers. documented in this encounterMarietta Osteopathic Clinic01-07-2025 Telephone encounter Note * Telephone Encounter - [...] found Please advise. Thank you. Varsha Byers. [facility]01-07-2025 Telephone encounter Note* Telephone Encounter - Lacie Muñoz - 02/14/2024 3:59 PM EST 1st attempt to reach for scheduling, left voicemail. Adrian was seen at [facility] care today, and Hever referred him to see Pulmonology. He was unable to stay for scheduling but he and his caregiver said they would like to do all the appointmentsat [place]. Although there are many available times to complete the respiratory tests required for new pulmonology appointments on the same day, there are not any openings where both the respiratory tests and the pulmonology provider appointment are available the same day soon. Lacie Muñoz [facility]01-07-2025 Miscellaneous Notes* Telephone Encounter - Lacie Muñoz - 02/14/2024 3:59 PM EST 1st attempt to reach for scheduling, left voicemail. Adrian was seen at [facility] today, and Hever referred him to see Pulmonology. He was unable to stay for scheduling but he and his caregiver said they would like to do all the appointmentsat [place]. Although there are many available times to complete the respiratory tests required for new pulmonology appointments on the same day, there are not any openings where both the respiratory tests and the pulmonology provider appointment are available the same day soon. Lacie Muñoz documented in this encounterMarietta Osteopathic Clinic01-07-2025 NoteHNO ID: [id number] Author: HEVER MARTÍNEZ APRN.ASPHALT MIXER Service: ? Author Type: Nurse Practitioner Type: Progress Notes Filed: 02/14/2024 16:39 Note Text: This note was created using Lux[employer]. Subjective Arturo Pedersen is a 83 year old male. Patient here with delivery aide. Treated for RLL pneumonia at the ER, [...] of AFIB and CAD, never seen a director volunteer services. Uses walker for ambulation, sleeps in the [...] HIP FRACTURE(S) Left 11/2017 hip screw placed [facility] Aspirin, Oxycodone, and Percodan [Oxycodone-Aspirin] MEDICATIONS [...] type (HCC) Recommend to establish care with microfilming document preparer, continue oxygen. - CONSULT TO PULMONARY MEDICINE 3. Adjustment disorder with mixed anxiety and depressed mood Increase to 40 mg daily. - PARoxetine (PAXIL) 40 mg tablet; Take 1 tablet by mouth once daily. Dispense: 90 tablet; Refill: 1 4. Paroxysmal atrial fibrillation (HCC) Recommend to repeat labs in 1-2 we (more content not included)...[facility]01-07-2025 History of Present illness Narrative* Hever Martínez APRN.ASPHALT MIXER - 02/14/2024 2:16 PM EST This note was created using [employer]. Subjective Arturo Pedersen is a 83 year old male. Patient here with delivery aide. Treated for RLL pneumonia at the ER, [...] of AFIB and CAD, never seen a director volunteer services. Uses walker for ambulation, sleeps in the [...] HIP FRACTURE(S) Left 11/2017 hip screw placed [facility] Aspirin, Oxycodone, and Percodan [Oxycodone-Aspirin] MEDICATIONS [...] type (HCC) Recommend to establish care with microfilming document preparer, continue oxygen. - CONSULT TO PULMONARY MEDICINE [...] HIGH DOSE, TRIVALENT (FLUZONE HIGH-DOSE) Hever Martínez APRN.ASPHALT MIXER documented in this [facility]25 Telephone encounter Note * Telephone Encounter - Ge Will LPN - 02/13/2024 11:28 AM EST Received visit summary for SOB from [facility] ed. Placed in provider's inbox for review. Route to MA scanning [facility]01-06-2025 Miscellaneous Notes* Telephone Encounter - Ge Will LPN - 02/13/2024 11:28 AM EST Received visit summary for SOB from [facility] ed. Placed in provider's inbox for review. Route to MA scanning documented in this encounterMarietta [facility]11-25-2024 Telephone encounter Note * Telephone Encounter - Paddy Zaidi MD - 01/02/2024 11:15 AM EST The following approved medication requests have been transmitted electronically. Requested Prescriptions Signed Prescriptions Disp Refills PARoxetine (PAXIL) 20 mg tablet 30 tablet 5 Sig: Take 1 tablet by mouth once daily. Authorizing Provider: PADDY ZAIDI MD [facility]11-25-2024 Miscellaneous Notes* Telephone Encounter - Paddy Zaidi [...] 30, 2023 10:38 AM documented in this encounterMarietta [facility] Clinic11-22-2024 Telephone encounter Note * Telephone Encounter - [...] Chayito Thorne December 30, 2023 10:38 AM [facility]11-13-2024 Telephone encounter Note* Telephone Encounter - Ge Will LPN - 12/21/2023 3:28 PM EST Received annual oxygen rx from [facility]. Placed in provider's inbox for review. Route to MA fax [facility]11-13-2024 Miscellaneous Notes* Telephone Encounter - Ge Will LPN - 12/21/2023 3:28 PM EST Received annual oxygen rx from [facility]. Placed in provider's inbox for review. Route to MA fax documented in this encounterMarietta [facility] Clinic10-24-2024 Telephone encounter Note * Telephone Encounter - Paddy Zaidi MD - 12/01/2023 2:45 PM EDT The following approved medication requests have been transmitted electronically. Requested Prescriptions Signed Prescriptions Disp Refills PARoxetine (PAXIL) 20 mg tablet 30 tablet 5 Sig: Take 1 tablet by mouth once daily. Authorizing Provider: PADDY ZAIDI MD [facility]10-24-2024 Miscellaneous Notes* Telephone Encounter - Paddy Zaidi [...] Thank you. Varsha Byers. documented in this encounterMarietta [facility] Clinic10-24-2024 Telephone encounter Note * Telephone Encounter - [...] Please advise. Thank you. Varsha Byers. T [facility]10-22-2024 Telephone encounter Note* Telephone Encounter - Talia [...] LPN November 29, 2023 2:13 PM T [facility]10-22-2024 Miscellaneous Notes* Telephone Encounter - Talia Ann [...] 29, 2023 2:13 PM documented in this encounterMarietta [facility] Clinic07-26-2024 History of Present illness Narrative* Sarah Robison RN - 09/02/2023 11:40 AM EDT [facility] NURSE - CHART REVIEW Provider BRENANN PCC Action 09/22/2022 presented to non [facility] ED following mechanical fall in home. Documentation of encounter indicates no loss of consciousness, not on blood thinning medication. Xray revealed fracture of distalright fibula Pt identified by name and . Reason for Review: Payor request Patient Attributed To: PAOLA Payer: KEILA Chart Review For: Utilization: ED Total Patient High CostTotal Patient High Cost {HIGH COST:614010) Quality measure review Payor request for assistance Action Taken: No action needed Sarah Robison RN September 02, 2023 11:40 AM documented in this encounterMarietta [facility] Clinic07-18-2024 History of Present illness Narrative* Corrina Collazo - 08/25/2023 3:58 PM EDT [facility] POPULATION HEALTH NAVIGATION OUTREACH Action/FYI Patient needs scheduled for AMW. [facility] 03-15-2023 missed Patient Identified by Name and : Yes, via phone Reason for Outreach Care Gap or Scheduling Wellness Visits Care Gap Reviewed:: Annual Wellness visit [facility] Outreach Outcome/Action Unable to reach patient: Left message Population Health Navigation Workflow Chart Review Payer: Keila Navigation Signature: Corrina Collazo August 25, 2023 3:58 PM documented in this encounterMarietta [facility] Clinic06-26-2024 History of Present illness Narrative* Elenita Dey [...] 03, 2023 1:42 PM documented in this encounterMarietta [facility] Clinic06-03-2024 Telephone encounter Note * Telephone Encounter - Isabell Kearns - 07/11/2023 11:26 AM EDT Adrian is calling Paddy Zaidi MD today with concern regarding Medication Request Disp Refills Start End potassium chloride (K-TAB) 10 mEq tablet 180 tablet 3 05/21/2022 08/19/2022 Sig: Take 2 tablets by mouth every morning. Sent to pharmacy as: potassium chloride (K-TAB) 10 mEq tablet Class: Normal [facility] [place]. No need to call patient if sent to pharmacy. Thank you. Patient has been identified by name and birthdate. Duration of symptoms: N/A Person calling: self Call patient at: on cell [phone] (home) [phone] (cell) Was an appointment scheduled: No Closing statement: Results or non-symptom based questions: Thank you for calling [facility], your call will be returned within the next business day. Isabell Riggins [facility]06-03-2024 Miscellaneous Notes* Telephone Encounter - Isabell Kearns - 07/11/2023 11:26 AM EDT Adrian is calling Paddy Zaidi MD today with concern regarding Medication Request Disp Refills Start End potassium chloride (K-TAB) 10 mEq tablet 180 tablet 3 05/21/2022 08/19/2022 Sig: Take 2 tablets by mouth every morning. Sent to pharmacy as: potassium chloride (K-TAB) 10 mEq tablet Class: Normal [facility] [place]. No need to call patient if sent to pharmacy. Thank you. Patient has been identified by name and birthdate. Duration of symptoms: N/A Person calling: self Call patient at: on cell [phone] (home) [phone] (cell) Was an appointment scheduled: No Closing statement: Results or non-symptom based questions: Thank you for calling [facility], your call will be returned within the next business day. Isabell Riggins documented in this encounterMarietta [facility] Clinic06-03-2024 Telephone encounter Note * Telephone Encounter - [...] found Please advise. Thank you. Isabell Riggins. [facility]06-03-2024 Miscellaneous Notes* Telephone Encounter - Isabell Kearns [...] Thank you. Isabell Riggins. documented in this encounterMarietta [facility] Clinic05-06-2024 Telephone encounter Note * Telephone Encounter - Ge Will LPN - 06/13/2023 10:34 AM EDT Called and notified pt. Pt indicated understanding. [facility]05-06-2024 Miscellaneous Notes* Telephone Encounter - Ge Will [...] normal. Paddy Zaidi MD documented in this encounterMarietta [facility] Clinic05-06-2024 Telephone encounter Note * Telephone Encounter - [...] Blood count is normal. Paddy Zaidi MD [facility]04-30-2024 History of Present illness Narrative* Paddy Zaidi [...] full and symmetrical. Data Reviewed Latest Ref [facility] 06/06/2023 Protein, Total 6.3 - 8.0 g/dL [...] 15, 2023 9:45 AM documented in this encounterMarietta [facility] Clinic04-26-2024 Telephone encounter Note * Telephone Encounter - [...] limit his ability to leave home. Called [facility] medical at [phone]. Patient currently has the full size home [...] would just need an order faxed over. [facility]04-26-[facility]24 Miscellaneous Notes* Telephone Encounter - Natalia Massey [...] limit his ability to leave home. Called [facility] at [phone]. Patient currently has the full size home [...] 05/27/2023 2:49 PM EDT Pharmacy verified in [facility] Patient has been identified by name and [...] Patient aware RX will be sent to [facility] pharmacy. No need to notify patient. Varsha Byers documented in this encounterMarietta [facility] Clinic04-22-2024 Telephone encounter Note * Telephone Encounter - Talia Ann LPN - 05/30/2023 4:08 PM EDT LM for patient to have fasting labs drawn. Patient has medicare wellness appt 06/23/2023 [facility]04-19-2024 Telephone encounter Note* Telephone Encounter - Paddy [...] For neuropathy Authorizing Provider: PADDY ZAIDI MD [facility]04-19-2024 Telephone encounter Note* Telephone Encounter - MarissaTalia [...] 06/02/2022 134/68 Please advise. Talia Ann LPN [facility]04-19-2024 Telephone encounter Note* Telephone Encounter - Varsha [...] Patient aware RX will be sent to [facility] pharmacy. No need to notify patient. Varsha Byers [facility]03-08-2024 History of Present illness Narrative* Corrina Barakat [...] labs: Medicare Annual Wellness Visit 06/23/[facility]23 [facility] with PADDY ZAIDI - MEDICARE WELLNESS Z00.00, HCC GAP CLOSURE HCC related Navigation Signature: Corrina Barakat MA April 15, 2023 11:52 AM documented in this encounterMarietta [facility] Clinic03-01-2024 Miscellaneous Notes* Telephone Encounter - Paddy Zaidi [...] 04/08/2023 3:09 PM EST Pharmacy verified in [facility] Patient has been identified by name and [...] advise. Gabrielle Rosenthal MA documented in this encounterMarietta [facility] Clinic02-09-2024 Miscellaneous Notes* Telephone Encounter - Ge Will LPN - 03/18/2023 2:25 PM EST Received visit summary, labs, imaging, EKG for SOB from [facility]. Placed in provider's inbox for review. Route to MA scanning. documented in this encounterMarietta [facility] Clinic02-06-2024 Discharge summary Author Parker Metzger [facility] March 15, 2023 3:59pm Note Date/Time March 15, 2023 1 :58pm [facility] Medical Records Department [address] [place] [id number] Emergency Department Summary 03/15/23 MR#: [id number] Acct: [id number] Name: ARTURO PEDERSEN Rep #:[id number] : 1940 82 From: Parker Metzger MD [...] Yes (COPD exacerbation) Recent Illness/Hospitalization: No PFSH [facility] Medical History Atherosclerosis of coronary artery of ottawa heart without angina pectoris Central sleep apnea [...] oriented x3 and CN's II-XII intact bilaterally Williams Coma Scale: document GCS findings Spontaneous Obeys [...] 80.9 H Lymph % (Auto) 8.8 L [place] % (Auto) 6.8 Eos % (Auto) 2.1 [...] duration 70 ms, QT duration 334 ms. [place] is normal.) Treatment and Re-Evaluation :: Patient [...] HTN (hypertension), Atherosclerosis of coronary artery of ottawa heart without angina pectoris, Stage 2 moderate [...] your Primary Care Provider. Call [facility] ([phone]) or report to the closest Emergency Room. Call 911 if necessary. 03/15/23 1559 <Electronically signed by Parker Metzger MD> Cosigner Signature (if applicable): CC: Dr. Shayne Zaidi MD ~ Signed [facility] Work Phone: 1(131) 391-951511-21-2023 Miscellaneous Notes* Telephone Encounter - Ge Will - 12/28/2022 1:00 PM EST Order signed by PCP and faxed. * Telephone Encounter - Ge Will - 12/28/2022 8:14 AM EST Received annual oxygen prescription order form (renewal date 12/08/21) from [employer]. Placed in provider's inbox for review. Route to [place] fax [phone] documented in this encounterMarietta [facility] Clinic08-17-2023 Miscellaneous Notes* Telephone Encounter - Ge Will - 09/23/2022 8:10 AM EDT Received ED visit summary and xrays for lower extremity injusry from [facility] ED. Placed in provider's inbox for review. Route to MA scanning. documented in this encounterMarietta Osteopathic Clinic08-14-2023 Hospital Discharge instructions Additional Instructions Closed fracture of ankle. Maintain splint. Usual walker do not put weight on your right lower extremity. Take pain medications as prescribed. Continue to ice and elevate for swelling. Call office of Dr. Pozo for appointment to be seen on Tuesday or Tuesday.[facility] Work Phone: 1(931) 547-565807-14-2023 Miscellaneous Notes* Addendum Note - Talia Ann [...] potassium chloride,spironolactone. Please advise documented in this encounterMarietta [facility]opathic Clinic05-16-2023 Miscellaneous Notes* Telephone Encounter - Talia Ann LPN - 06/22/2022 9:08 AM EDT LM for patient to call office. * Telephone Encounter - Hever Santiago APRN.CNP - 06/22/2022 8:49 AM EDT Please call patient and remind him to get his repeat chest xray completed in the next week, order placed. Hever Santiago APRN.CNP documented in this encounterMarietta [facility] Clinic04-26-2023 History of Present illness Narrative* Hever Santiago APRN.CNP - 06/02/2022 1:02 PM EDT This note was created using Luxim. Subjective Arturo Pedersen is a 81 year [...] HIP FRACTURE(S) Left 11/2017 hip screw placed [facility] Aspirin, Oxycodone, and Percodan [Oxycodone-Aspirin] MEDICATIONS [...] depression/anxiety. Hever Santiago APRN.CNP documented in this encounterMarietta [facility] Clinic04-19-2023 Miscellaneous Notes* Telephone Encounter - Violetta Humphrey RN - 05/26/2022 1:28 PM EDT Notified patient-he agrees to plan. Scheduled f/u. Patient verbalizes understanding and has no other questions or concerns at this time. Violetta Humphrey RN Reason for Disposition Health Information question, no triage required and triager able to answer question Protocols used: Information Only Call - No [id number]-[id number] * Telephone Encounter - Magdy Gloria RN [...] doing. Hever Santiago APRN.CNP documented in this encounterMarietta [facility] Clinic04-15-2023 History of Present illness Narrative* [place] [...] 22, 2022 11:25 AM documented in this encounterMarietta [facility] Clinic04-14-2023 History of Present illness Narrative* Paddy Zaidi MD - 05/21/2022 3:59 PM EDT CHIEF COMPLAINT Patient presents with: Follow Up HISTORY OF PRESENT ILLNESS Arturo Pedersen is a 81 year old male who presents here today for a follow up. I last saw this patient on . Pt is accompanied by his nephew. CAD / Afib Admitted [facility] Cath/ stent placed, no f/u with cardiology. - Pt notes after walking out to car after eating at [employer] restaurant, , Pt feels like he will pass out. - Pt nephew notes he experiences similar episodes when getting out of the car after going to [facility] - Pt checks his blood pressure at home and records good numbers - Pt nephew notes Pt has trouble walking; he has coughing spells - Pt uses two pillows to lay in bed. Cardiac Cath Intervention on 12-16-[address] [facility] Imaging Services [address] [place] [address] Cardiac Cath Intervention MR#: [id number] Acct: [id number] Name: ARTURO PEDERSEN Rep #: [id number] : 1940 81 From: Dallas Muller MD PCP: Dr. Shayne Zaidi MD Status:ADM IN Patient Name: ARTURO PEDERSEN Study Date: 12/16/2021 Performing: Tiago Burden MD Ht: 71 inches 180.34 cm : 1940 Wt: 194.29 lbs 88.13 kg Age: 81 Gender: male BSA: 2.08 PROCEDURE(S) PERFORMED IC12-(89866/C9600)KIRK W/WO PTCA, SINGLE CORONARY ARTERY CLINICAL PROFILE [...] XB3.5 100cm Guide Catheter Grey .014 [employer] Straight 190cm [employer] EMERGE MR 3.00x08 BALLOON [employer] Synergy MR KIRK 3.50x08 Medtr[employer] NC EUPHORA RX 3.5x08 BALLOON COPD/ JONATHAN? 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 Refill(s) requested: Requested Prescriptions Pending Prescriptions Disp [...] of all of his medications sent to [facility] pharmacy in [place]. Can someone assist him with his RX refills? He is totally out of gabapentin but also requesting atorvastatin, spironolactone, escitalopram oxalate, atenolol, levothyroxine, potassium chloride. I have scheduled Adrian for a routine check up since he has not been seen since last fall. 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 Could someone advise Adrian when and if RX refills havebeen sent? Thank you, Lacie Muñoz documented in this [facility]11-21-2022 Miscellaneous Notes* Telephone Encounter - Ge Will - 12/28/2021 2:02 PM EST Received visit summary for sleep apnea and COPD from [facility]. Placed in provider's inbox for review. Route to MA scanning. documented in this [facility]11-18-2022 Miscellaneous Notes* Telephone Encounter - Talia Ann LPN - 12/25/2021 11:42 AM EST Received 12/25/2021 from [facility]. Placed in provider's inbox for review. 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 Placed in provider's inbox for review. Route to MA scanning. documented in this [facility]11-14-2022 Miscellaneous Notes* Telephone Encounter - Talia Ann LPN - 12/21/2021 11:00 AM EST Received 12/18/2021 from [facility]. Placed in provider's inbox for review. Route to MA for scanning. documented in this encounterMarietta [facility] Clinic11-14-2022 Miscellaneous Notes* Telephone Encounter - Talia Ann LPN - 12/21/2021 10:57 AM EST Received 12/21/2021 from [facility]. Placed in provider's inbox for review. Route to MA for scanning documented in this encounterMarietta [facility]opathic Clinic11-10-2022 Miscellaneous Notes* Telephone Encounter - Ge Will - 12/17/2021 3:17 PM EST Received liver us for elevated lft's from [facility]. Placed in provider's inbox for review. Route to MA scanning. documented in this encounterMarietta [facility] Clinic11-09-2022 Miscellaneous Notes* Telephone Encounter - Ge Will - 12/16/2021 3:08 PM EST Received cardiac cath intervention/diagnostic procedure note and EKG's 12/14, 12/15, 12/16 from [facility]. Placed in provider's inbox for review. Route to MA scanning. documented in this encounterMari[facility] Clinic11-08-2022 Miscellaneous Notes* Telephone Encounter - Ge Will - 12/15/2021 8:54 AM EST Received ED summary, labs, imaging for SOB and chest pain from [facility]. Placed in provider's inbox for review. Route to MA scanning. documented in this encounterMari[facility] Clinic10-10-2022 Miscellaneous Notes* Telephone Encounter - Paddy Zaidi [...] 11/16/2021 10:28 AM EDT Pharmacy verified in [facility] Patient has been identified by name and [...] advise. Talia Ann LPN documented in this encounterMarietta [facility] Clinic08-09-2022 Miscellaneous Notes* Telephone Encounter - Jessi Sotelo [...] recheck. Hever Santiago APRN.CNP documented in this encounterMarietta [facility]opathic Clinic08-04-2022 Miscellaneous Notes* Telephone Encounter - Ge Will [...] 06/22/21 Next appointment: n/a Pharmacy verified in [facility]. Refill(s) requested: Pending Prescriptions Disp Refills ATENOLOL [...] Order(s) pended. Please advise. Timothy Maradiaga Ma, CURATOR OF EDUCATION documented in this encounterMarietta [facility]opathic Clinic05-16-2022 History of Present illness Narrative* Hever Santiago APRN.ASPHALT MIXER - 06/22/2021 1:03 PM EDT This note was created using Luxim. Subjective Arturo Pedersen is a 80 year [...] 1 Hever Santiago APRN.CNP documented in this encounterMarietta [facility]opathic Clinic05-04-2022 Miscellaneous Notes* Telephone Encounter - Jessi Sotelo [...] 06/09/2021 3:55 PM EDT Pharmacy verified in [facility] Patient has been identified by name and [...] advise. Corrina Preciado Pss documented in this encounterMarietta [facility] Clinic04-14-2022 Miscellaneous Notes* Telephone Encounter - Paddy Zaidi [...] 12-17-20 Next appointment: na Pharmacy verified in [facility]. Refill(s) requested: Pending Prescriptions Disp Refills ESCITALOPRAM 20 MG TABLET 30 tablet 0 Sig: Take 1 tablet by mouth once daily KARLA: Yes Order(s) pended. Please advise. Haily Avila MA, [facility] Diagnosis Essential hypertension Unspecified essential hypertension Hypokalemia Hypopotassemia documented in this encounter [facility] note* Diagnosis Essential hypertension- Primary Unspecified essential hypertension Pure hypercholesterolemia Acquired hypothyroidism Unspecified hypothyroidism Adjustment disorder with mixed anxiety and depressed mood Peripheral polyneuropathy Unspecified hereditary and idiopathic peripheral neuropathy documented in this encounter [facility] note* Diagnosis Essential hypertension Unspecified essential hypertension Hypokalemia Hypopotassemia documented in this encounter [facility] note* Diagnosis Peripheral polyneuropathy Unspecified hereditary and idiopathic peripheral neuropathy documented in this encounter [facility] note* Diagnosis Onset Date Resolution Status Non-STEMI (non-ST elevated myocardial infarction) acute Paroxysmal atrial fibrillation with RVR acute Pneumococcal pneumonia acute Acute exacerbation of COPD with asthma [facility] Work Phone: evaluation note* Diagnosis Onset Date Resolution Status Non-STEMI (non-ST elevated myocardial infarction) acute Paroxysmal atrial fibrillation with RVR acute Pneumococcal pneumonia acute Acute exacerbation of COPD with asthma chronic HTN (hypertension) [facility] Work Phone: Evaluation note* Diagnosis COPD with exacerbation (HCC)- Primary Obstructive chronic bronchitis with exacerbation Hypertensive urgency Unspecified essential hypertension 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) S/P angioplasty with stent Other postprocedural status 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) Pneumonia of left upper lobe due to infectious organism Essential hypertension Unspecified essential hypertension Obstructive sleep apnea on CPAP Obstructive sleep apnea (adult) (pediatric) Hospital discharge follow-up Other follow-up examination documented in this encounter [facility] note* Diagnosis Onset Date Resolution Status Non-STEMI (non-ST elevated myocardial infarction) acute Paroxysmal atrial fibrillation with RVR acute Acute exacerbation of COPD with asthma chronic HTN (hypertension) chronic 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 [facility] Work Phone: evaluation note* Diagnosis Medication management Encounter for long-term (current) use of other medications Acquired hypothyroidism Unspecified hypothyroidism documented in this encounter [facility] note* Diagnosis Mixed hyperlipidemia Peripheral polyneuropathy Unspecified hereditary and idiopathic peripheral neuropathy Essential hypertension Unspecified essential hypertension Hypothyroidism, unspecified type Hypokalemia Hypopotassemia [facility] Diagnosis 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)- Primary Essential hypertension Unspecified essential hypertension Hypokalemia Hypopotassemia Peripheral polyneuropathy Unspecified hereditary and idiopathic peripheral neuropathy Acquired hypothyroidism Unspecified hypothyroidism Anxiety Anxiety state, unspecified Paroxysmal atrial fibrillation (HCC) Atrial fibrillation SOB (shortness of breath) Shortness of breath Mixed hyperlipidemia Hypothyroidism, unspecified type Chronic obstructive pulmonary disease, unspecified COPD type (HCC) [facility] Diagnosis Pneumonia of right middle lobe due to infectious organism- Primary [facility] Diagnosis Pneumonia of right middle lobe due to infectious organism- Primary ED (erectile dysfunction) of organic origin Impotence of organic origin Adjustment disorder with mixed anxiety and depressed mood [facility] Diagnosis Hypothyroidism, unspecified type Mixed hyperlipidemia [facility] noteNo assessment information availableWHolmes [facility] Work Phone: Evaluation note* Diagnosis Hypothyroidism, unspecified type Essential hypertension Unspecified essential hypertension Mixed hyperlipidemia Peripheral polyneuropathy Unspecified hereditary and idiopathic peripheral neuropathy [facility] Diagnosis 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 Hypothyroidism, unspecified type Essential hypertension Unspecified essential hypertension Mixed hyperlipidemia Peripheral polyneuropathy Unspecified hereditary and idiopathic peripheral neuropathy SOB (shortness of breath) Shortness of breath Hypoxemia [facility] Diagnosis Essential hypertension Unspecified essential hypertension Hypothyroidism, unspecified type [facility] Diagnosis Hypokalemia Hypopotassemia [facility] Diagnosis 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) Paroxysmal atrial fibrillation (HCC) Atrial fibrillation SOB (shortness of breath) Shortness of breath [facility] Diagnosis Pneumonia of right lower lobe due to infectious organism- Primary Chronic obstructive pulmonary disease, unspecified COPD type (HCC) Adjustment disorder with mixed anxiety and depressed mood Paroxysmal atrial fibrillation (HCC) Atrial fibrillation Encounter for immunization Need for other specified prophylactic vaccination against single bacterial disease [facility] Diagnosis Chronic atrial fibrillation (HCC)- Primary Atrial fibrillation [facility] current use of anticoagulant therapy Long-term (current) use of anticoagulants [facility] Diagnosis Chronic obstructive pulmonary disease, unspecified COPD type (HCC) [facility] Diagnosis Chronic obstructive pulmonary disease, unspecified COPD type (HCC) [facility] Diagnosis Chronic obstructive pulmonary disease, unspecified COPD type (HCC) Chronic obstructive pulmonary disease, unspecified COPD type (HCC) Stage 3 severe COPD by GOLD classification ([facility])- Primary Pneumonia of left lower lobe due to infectious organism Lung nodules Other nonspecific abnormal finding of lung field Former smoker Personal history of tobacco use, presenting hazards to health Chronic hypoxemic respiratory failure (HCC) Chronic respiratory failure [facility] Diagnosis Chronic obstructive pulmonary disease, unspecified COPD type (HCC)- Primary documented in this encounter [facility] note* Diagnosis Stage 3 severe COPD by GOLD classification ([facility])- Primary Hypoxia Hypoxemia Pneumonia of left lower lobe due to infectious organism Lung nodules Other nonspecific abnormal finding of lung field [facility] Diagnosis Pneumonia of left lower lobe due to infectious organism Lung nodules Other nonspecific abnormal finding of lung field [facility] Diagnosis Mixed hyperlipidemia Essential hypertension Unspecified essential hypertension documented in this encounter [facility] note* Diagnosis Hypothyroidism, unspecified type Peripheral polyneuropathy Unspecified hereditary and idiopathic peripheral neuropathy [facility] Diagnosis Oxygen dependent- Primary Dependence on supplemental oxygen Atherosclerotic cardiovascular disease Anxiety attack Panic 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 Leg swelling Swelling of limb Adjustment disorder with mixed anxiety and depressed mood PAD (peripheral artery disease) Peripheral vascular disease, unspecified Acquired hypothyroidism Unspecified hypothyroidism Pure hypercholesterolemia Idiopathic peripheral neuropathy Unspecified hereditary and idiopathic peripheral neuropathy Atherosclerosis of ot[place] coronary artery of [place] heart without angina pectoris [facility]* Diagnosis Adjustment disorder with mixed anxiety and depressed mood Hypokalemia Hypopotassemia documented in this encounter [facility] note* Diagnosis Hypokalemia Hypopotassemia documented [facility] Diagnosis Hypothyroidism, unspecified type documented in this encounter [facility] for referral (narrative)* Outpatient Procedure (Routine) - Closed Specialty Diagnoses / Procedures [facility] HEART [facility]ASC[facility] [place] Diagnoses 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) Paroxysmal atrial fibrillation (HCC) Procedures ECG COMPLETE ECG ROUTINE ECG W/LEAST 12 LDS W/I&R Paddy Zaidi MD [address] [place] [place] [address] Heart [facility] Vascular [place] [address] [place] [address] Referral ID Status Reason Start Date Expiration Date V isits Requested Visits Authorized [id number] Closed Auto-Generate d Referral 05/21/2022 05/21/2023 1 1 [facility] for referral (narrative)* Outpatient Procedure (Routine) - Authorized Specialty Diagnoses / Procedures Referred By Contac t Referred To [facility] RESPIRATORY [place] Diagnoses 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) Hypoxemia Procedures SIX MINUTE WALK CARDIOPULMONARY EXERCISE STRESS Paddy Zaidi MD [address] [place] [id number] [address] [address] Referral ID Status Reason Start Date Expiration Date Visits Requested Visits Authorized [id number] Authorized Auto-Generat ed Referral 06/07/2023 07/06/2024 1 1 T [facility] for referral (narrative)* Outpatient Procedure (Routine) - Authorized Specialty Diagnoses / Procedures Referred By Contac t Referred To [facility] Diagnoses Chronic obstructive pulmonary disease, unspecified COPD type (HCC) Procedures OXIMETRY WITH AMBULATION NONINVASIVE EAR/PULSE OXIMETRY MULTIPLE Raina Cruz MD [address] [place] [address] [address] Referral ID Status Reason Start Date Expiration Date Visits Requested Visits Authorized [id number] Authorized Auto-Generat ed Referral 03/05/2024 04/04/2025 1 1 * MRI/CT (Routine) - Authorized Specialty Diagnoses / Procedures Referred By Jovan t Referred To Contact CT IMAGING Diagnoses Pneumonia of left lower lobe due to infectious organism Lung nodules Procedures CT CHEST WO IVCON DIAGNOSTIC COMPUTED TOMOGRAPHY THORAX W/O CNTRST Raina Huynh MD [address] [place] [address] Ct Imaging [id number] Referral ID Status Reason Start Date Expiration Date Visits Requested Visits Authorized [id number] Authorized Auto-Generat ed Referral 03/05/2024 04/04/2025 1 1 * Outpatient Procedure (Routine) - Closed Specialty Diagnoses / Procedures Referred By Jovan Referred To Contact [facility] Diagnoses Chronic obstructive pulmonary disease, unspecified COPD type (HCC) Procedures LUNG DIFFUSION CAPACITY (DLCO) DIFFUSING CAPACITY Raina Huynh MD [address] [place] [address] Respiratory [place] [id number] Referral ID Status Reason Start Date Expiration Date V isits Requested Visits Authorized [id number] Closed Auto-Generate d Referral 03/05/2024 04/04/2025 1 1 * Outpatient Procedure (Routine) - Closed Specialty Diagnoses / Procedures [facility] Diagnoses Chronic obstructive pulmonary disease, unspecified COPD type (HCC) Procedures SPIROMETRY WITH DILATOR IF OBSTRUCTED BRNCDILAT RSPSE SPMTRY PRE&POST-BRNCDILAT ADMN Raina Huynh MD [address] [place] [address] Respiratory [place] [id number] Referral ID Status Reason Start Date Expiration Date V isits Requested Visits Authorized [id number] Closed Auto-Generate d Referral 03/05/2024 04/04/2025 1 1 [facility] Summary Purpose Family History No Family History [...] Will No December 14 5:17pm Power of Bleacher Lard No December 14, 2021 5:17pm Advance Directive Response Recorded Date/ Time Living Will No September 22 7:03pm Power of Bleacher Lard Yes September 22 7:03pm Name of Medical Power of Bleacher Lard GILA PEDERSEN September 22, 2022 7:03pm Advance Directive Response Recorded Date/ Time Living Will No March 15 2:08pm Power of Bleacher Lard Yes March 15, 2023 2:08pm Name of Medical Power of Bleacher Lard Gila March 15, 2023 2:08pm Advance Directive Response Recorded Date/ Time Do you have a Healthcare Power of Bleacher Lard? No September 10, 2024 12:54am Chief Complaint [...] fibrillation (HCC) Procedures CONSULT TO CARDIOLOGY OFFICE/OUTPATIENT [facility] 60 MINUTES Hever Martínez, WELDING TEACHER.ASPHALT MIXER [address] [place] [address] Referral ID Status Reason Start Date Expiration Date Visits Requested Visits Authorized [id number] Authorized PCP Requested Referral 02/14/2024 02/13/2025 1 1 Additional Source Comments (unrecognized sect ion and content) No Status Records FoundNo Status Records FoundNo Status Records FoundNo Status Records Found INFORMATION SOURCE (unrecogn ized section and content) DATE CREATED AUTHOR 06/30/2018 [facility] DATE CREATED AUTHOR AUTHOR'S ORGANIZ ATION 09/12/2024 [facility] DATE CREATED AUTHOR AUTHOR'S ORGANIZ ATION 09/13/2024 [facility] DATE CREATED AUTHOR AUTHOR'S ORGANIZ ATION 09/15/2024 [facility] Source Comments (unrecognize d section and content) In the event this informatio n is protected by the Federal Confidentiality of Alcohol and Drug Abuse Patient Records regulations: The Federal rules restrict any use of the information to criminally investigate or prosecute any alcohol or drug abuse patient.[facility] the event this information is protected by the Federal Confidentiality of Alcohol and Drug Abuse Patient Records regulations: The Federal rules restrict any use of the information to criminally investigate or prosecute any alcohol or drug abuse patient.[facility] Clinic[facility] the event this information is protected by the Federal Confidentiality of Alcohol and Drug Abuse Patient Records regulations: The Federal rules restrict any use of the information to criminally investigate or prosecute any alcohol or drug abuse patient.[facility] Clinic[facility] the event this information is protected by the Federal Confidentiality of Alcohol and Drug Abuse Patient Records regulations: The Federal rules restrict any use of the information to criminally investigate or prosecute any alcohol or drug abuse patient.[facility] Clinic[facility] the event this information is protected by the Federal Confidentiality of Alcohol and Drug Abuse Patient Records regulations: The Federal rules restrict any use of the information to criminally investigate or prosecute any alcohol or drug abuse patient.[facility] the event this information is protected by the Federal Confidentiality of Alcohol and Drug Abuse Patient Records regulations: The Federal rules restrict any use of the information to criminally investigate or prosecute any alcohol or drug abuse patient.[facility] Clinic[facility] the event this information is protected by the Federal Confidentiality of Alcohol and Drug Abuse Patient Records regulations: The Federal rules restrict any use of the information to criminally investigate or prosecute any alcohol or drug abuse patient.[facility] ClinicIn the event this information is protected by the Federal Confidentiality of Alcohol and Drug Abuse Patient Records regulations: The Federal rules restrict any use of the information to criminally investigate or prosecute any alcohol or drug abuse patient.[facility] the event this information is protected by the Federal Confidentiality of Alcohol and Drug Abuse Patient Records regulations: The Federal rules restrict any use of the information to criminally investigate or prosecute any alcohol or drug abuse patient.[facility] ClinicIn the event this information is protected by the Federal Confidentiality of Alcohol and Drug Abuse Patient Records regulations: The Federal rules restrict any use of the information to criminally investigate or prosecute any alcohol or drug abuse patient.[facility] ClinicIn the event this information is protected by the Federal Confidentiality of Alcohol and Drug Abuse Patient Records regulations: The Federal rules restrict any use of the information to criminally investigate or prosecute any alcohol or drug abuse patient.[facility] Clinic[facility] the event this information is protected by the Federal Confidentiality of Alcohol and Drug Abuse Patient Records regulations: The Federal rules restrict any use of the information to criminally investigate or prosecute any alcohol or drug abuse patient.[facility] the event this information is protected by the Federal Confidentiality of Alcohol and Drug Abuse Patient Records regulations: The Federal rules restrict any use of the information to criminally investigate or prosecute any alcohol or drug abuse patient.[facility] ClinicIn the event this information is protected by the Federal Confidentiality of Alcohol and Drug Abuse Patient Records regulations: The Federal rules restrict any use of the information to criminally investigate or prosecute any alcohol or drug abuse patient.[facility] ClinicIn the event this information is protected by the Federal Confidentiality of Alcohol and Drug Abuse Patient Records regulations: The Federal rules restrict any use of the information to criminally investigate or prosecute any alcohol or drug abuse patient.[facility] ClinicIn the event this information is protected by the Federal Confidentiality of Alcohol and Drug Abuse Patient Records regulations: The Federal rules restrict any use of the information to criminally investigate or prosecute any alcohol or drug abuse patient.[facility] the event this information is protected by the Federal Confidentiality of Alcohol and Drug Abuse Patient Records regulations: The Federal rules restrict any use of the information to criminally investigate or prosecute any alcohol or drug abuse patient.[facility] ClinicIn the event this information is protected by the Federal Confidentiality of Alcohol and Drug Abuse Patient Records regulations: The Federal rules restrict any use of the information to criminally investigate or prosecute any alcohol or drug abuse patient.[facility] ClinicIn the event this information is protected by the Federal Confidentiality of Alcohol and Drug Abuse Patient Records regulations: The Federal rules restrict any use of the information to criminally investigate or prosecute any alcohol or drug abuse patient.[facility] ClinicIn the event this information is protected by the Federal Confidentiality of Alcohol and Drug Abuse Patient Records regulations: The Federal rules restrict any use of the information to criminally investigate or prosecute any alcohol or drug abuse patient.[facility] ClinicIn the event this information is protected by the Federal Confidentiality of Alcohol and Drug Abuse Patient Records regulations: The Federal rules restrict any use of the information to criminally investigate or prosecute any alcohol or drug abuse patient.[facility] ClinicIn the event this information is protected by the Federal Confidentiality of Alcohol and Drug Abuse Patient Records regulations: The Federal rules restrict any use of the information to criminally investigate or prosecute any alcohol or drug abuse patient.[facility] ClinicIn the event this information is protected by the Federal Confidentiality of Alcohol and Drug Abuse Patient Records regulations: The Federal rules restrict any use of the information to criminally investigate or prosecute any alcohol or drug abuse patient.[facility] ClinicIn the event this information is protected by the Federal Confidentiality of Alcohol and Drug Abuse Patient Records regulations: The Federal rules restrict any use of the information to criminally investigate or prosecute any alcohol or drug abuse patient.[facility] ClinicIn the event this information is protected by the Federal Confidentiality of Alcohol and Drug Abuse Patient Records regulations: The Federal rules restrict any use of the information to criminally investigate or prosecute any alcohol or drug abuse patient.[facility] ClinicIn the event this information is protected by the Federal Confidentiality of Alcohol and Drug Abuse Patient Records regulations: The Federal rules restrict any use of the information to criminally investigate or prosecute any alcohol or drug abuse patient.[facility] ClinicIn the event this information is protected by the Federal Confidentiality of Alcohol and Drug Abuse Patient Records regulations: The Federal rules restrict any use of the information to criminally investigate or prosecute any alcohol or drug abuse patient.[facility] ClinicIn the event this information is protected by the Federal Confidentiality of Alcohol and Drug Abuse Patient Records regulations: The Federal rules restrict any use of the information to criminally investigate or prosecute any alcohol or drug abuse patient.[facility] ClinicIn the event this information is protected by the Federal Confidentiality of Alcohol and Drug Abuse Patient Records regulations: The Federal rules restrict any use of the information to criminally investigate or prosecute any alcohol or drug abuse patient.[facility]In the event this information is protected by the Federal Confidentiality of Alcohol and Drug Abuse Patient Records regulations: The Federal rules restrict any use of the information to criminally investigate or prosecute any alcohol or drug abuse patient.[facility]In the event this information is protected by the Federal Confidentiality of Alcohol and Drug Abuse Patient Records regulations: The Federal rules restrict any use of the information to criminally investigate or prosecute any alcohol or drug abuse patient.[facility]In the event this information is protected by the Federal Confidentiality of Alcohol and Drug Abuse Patient Records regulations: The Federal rules restrict any use of the information to criminally investigate or prosecute any alcohol or drug abuse patient.[facility] ClinicIn the event this information is protected by the Federal Confidentiality of Alcohol and Drug Abuse Patient Records regulations: The Federal rules restrict any use of the information to criminally investigate or prosecute any alcohol or drug abuse patient.[facility] ClinicIn the event this information is protected by the Federal Confidentiality of Alcohol and Drug Abuse Patient Records regulations: The Federal rules restrict any use of the information to criminally investigate or prosecute any alcohol or drug abuse patient.[facility] ClinicIn the event this information is protected by the Federal Confidentiality of Alcohol and Drug Abuse Patient Records regulations: The Federal rules restrict any use of the information to criminally investigate or prosecute any alcohol or drug abuse patient.[facility]In the event this information is protected by the Federal Confidentiality of Alcohol and Drug Abuse Patient Records regulations: The Federal rules restrict any use of the information to criminally investigate or prosecute any alcohol or drug abuse patient.[facility] ClinicIn the event this information is protected by the Federal Confidentiality of Alcohol and Drug Abuse Patient Records regulations: The Federal rules restrict any use of the information to criminally investigate or prosecute any alcohol or drug abuse patient.[facility] ClinicIn the event this information is protected by the Federal Confidentiality of Alcohol and Drug Abuse Patient Records regulations: The Federal rules restrict any use of the information to criminally investigate or prosecute any alcohol or drug abuse patient.[facility] ClinicIn the event this information is protected by the Federal Confidentiality of Alcohol and Drug Abuse Patient Records regulations: The Federal rules restrict any use of the information to criminally investigate or prosecute any alcohol or drug abuse patient.[facility] ClinicIn the event this information is protected by the Federal Confidentiality of Alcohol and Drug Abuse Patient Records regulations: The Federal rules restrict any use of the information to criminally investigate or prosecute any alcohol or drug abuse patient.[facility] ClinicIn the event this information is protected by the Federal Confidentiality of Alcohol and Drug Abuse Patient Records regulations: The Federal rules restrict any use of the information to criminally investigate or prosecute any alcohol or drug abuse patient.[facility] ClinicIn the event this information is protected by the Federal Confidentiality of Alcohol and Drug Abuse Patient Records regulations: The Federal rules restrict any use of the information to criminally investigate or prosecute any alcohol or drug abuse patient.[facility] ClinicIn the event this information is protected by the Federal Confidentiality of Alcohol and Drug Abuse Patient Records regulations: The Federal rules restrict any use of the information to criminally investigate or prosecute any alcohol or drug abuse patient.[facility] ClinicIn the event this information is protected by the Federal Confidentiality of Alcohol and Drug Abuse Patient Records regulations: The Federal rules restrict any use of the information to criminally investigate or prosecute any alcohol or drug abuse patient.[facility] ClinicIn the event this information is protected by the Federal Confidentiality of Alcohol and Drug Abuse Patient Records regulations: The Federal rules restrict any use of the information to criminally investigate or prosecute any alcohol or drug abuse patient.[facility] ClinicIn the event this information is protected by the Federal Confidentiality of Alcohol and Drug Abuse Patient Records regulations: The Federal rules restrict any use of the information to criminally investigate or prosecute any alcohol or drug abuse patient.[facility] ClinicIn the event this information is protected by the Federal Confidentiality of Alcohol and Drug Abuse Patient Records regulations: The Federal rules restrict any use of the information to criminally investigate or prosecute any alcohol or drug abuse patient.[facility] ClinicIn the event this information is protected by the Federal Confidentiality of Alcohol and Drug Abuse Patient Records regulations: The Federal rules restrict any use of the information to criminally investigate or prosecute any alcohol or drug abuse patient.[facility] ClinicIn the event this information is protected by the Federal Confidentiality of Alcohol and Drug Abuse Patient Records regulations: The Federal rules restrict any use of the information to criminally investigate or prosecute any alcohol or drug abuse patient.[facility] ClinicIn the event this information is protected by the Federal Confidentiality of Alcohol and Drug Abuse Patient Records regulations: The Federal rules restrict any use of the information to criminally investigate or prosecute any alcohol or drug abuse patient.[facility] ClinicIn the event this information is protected by the Federal Confidentiality of Alcohol and Drug Abuse Patient Records regulations: The Federal rules restrict any use of the information to criminally investigate or prosecute any alcohol or drug abuse patient.[facility] ClinicIn the event this information is protected by the Federal Confidentiality of Alcohol and Drug Abuse Patient Records regulations: The Federal rules restrict any use of the information to criminally investigate or prosecute any alcohol or drug abuse patient.[facility] ClinicIn the event this information is protected by the Federal Confidentiality of Alcohol and Drug Abuse Patient Records regulations: The Federal rules restrict any use of the information to criminally investigate or prosecute any alcohol or drug abuse patient.[facility] ClinicIn the event this information is protected by the Federal Confidentiality of Alcohol and Drug Abuse Patient Records regulations: The Federal rules restrict any use of the information to criminally investigate or prosecute any alcohol or drug abuse patient.[facility] ClinicIn the event this information is protected by the Federal Confidentiality of Alcohol and Drug Abuse Patient Records regulations: The Federal rules restrict any use of the information to criminally investigate or prosecute any alcohol or drug abuse patient.[facility] ClinicIn the event this information is protected by the Federal Confidentiality of Alcohol and Drug Abuse Patient Records regulations: The Federal rules restrict any use of the information to criminally investigate or prosecute any alcohol or drug abuse patient.[facility] ClinicIn the event this information is protected by the Federal Confidentiality of Alcohol and Drug Abuse Patient Records regulations: The Federal rules restrict any use of the information to criminally investigate or prosecute any alcohol or drug abuse patient.[facility] ClinicIn the event this information is protected by the Federal Confidentiality of Alcohol and Drug Abuse Patient Records regulations: The Federal rules restrict any use of the information to criminally investigate or prosecute any alcohol or drug abuse patient.[facility] ClinicIn the event this information is protected by the Federal Confidentiality of Alcohol and Drug Abuse Patient Records regulations: The Federal rules restrict any use of the information to criminally investigate or prosecute any alcohol or drug abuse patient.[facility] ClinicIn the event this information is protected by the Federal Confidentiality of Alcohol and Drug Abuse Patient Records regulations: The Federal rules restrict any use of the information to criminally investigate or prosecute any alcohol or drug abuse patient.[facility] ClinicIn the event this information is protected by the Federal Confidentiality of Alcohol and Drug Abuse Patient Records regulations: The Federal rules restrict any use of the information to criminally investigate or prosecute any alcohol or drug abuse patient.[facility] ClinicIn the event this information is protected by the Federal Confidentiality of Alcohol and Drug Abuse Patient Records regulations: The Federal rules restrict any use of the information to criminally investigate or prosecute any alcohol or drug abuse patient.[facility] ClinicIn the event this information is protected by the Federal Confidentiality of Alcohol and Drug Abuse Patient Records regulations: The Federal rules restrict any use of the information to criminally investigate or prosecute any alcohol or drug abuse patient.[facility] ClinicIn the event this information is protected by the Federal Confidentiality of Alcohol and Drug Abuse Patient Records regulations: The Federal rules restrict any use of the information to criminally investigate or prosecute any alcohol or drug abuse patient.[facility] ClinicIn the event this information is protected by the Federal Confidentiality of Alcohol and Drug Abuse Patient Records regulations: The Federal rules restrict any use of the information to criminally investigate or prosecute any alcohol or drug abuse patient.[facility] ClinicIn the event this information is protected by the Federal Confidentiality of Alcohol and Drug Abuse Patient Records regulations: The Federal rules restrict any use of the information to criminally investigate or prosecute any alcohol or drug abuse patient.[facility] ClinicIn the event this information is protected by the Federal Confidentiality of Alcohol and Drug Abuse Patient Records regulations: The Federal rules restrict any use of the information to criminally investigate or prosecute any alcohol or drug abuse patient.[facility] ClinicIn the event this information is protected by the Federal Confidentiality of Alcohol and Drug Abuse Patient Records regulations: The Federal rules restrict any use of the information to criminally investigate or prosecute any alcohol or drug abuse patient.[facility] ClinicIn the event this information is protected by the Federal Confidentiality of Alcohol and Drug Abuse Patient Records regulations: The Federal rules restrict any use of the information to criminally investigate or prosecute any alcohol or drug abuse patient.[facility] ClinicIn the event this information is protected by the Federal Confidentiality of Alcohol and Drug Abuse Patient Records regulations: The Federal rules restrict any use of the information to criminally investigate or prosecute any alcohol or drug abuse patient.[facility] ClinicIn the event this information is protected by the Federal Confidentiality of Alcohol and Drug Abuse Patient Records regulations: The Federal rules restrict any use of the information to criminally investigate or prosecute any alcohol or drug abuse patient.[facility] ClinicIn the event this information is protected by the Federal Confidentiality of Alcohol and Drug Abuse Patient Records regulations: The Federal rules restrict any use of the information to criminally investigate or prosecute any alcohol or drug abuse patient.[facility] ClinicIn the event this information is protected by the Federal Confidentiality of Alcohol and Drug Abuse Patient Records regulations: The Federal rules restrict any use of the information to criminally investigate or prosecute any alcohol or drug abuse patient.[facility] ClinicIn the event this information is protected by the Federal Confidentiality of Alcohol and Drug Abuse Patient Records regulations: The Federal rules restrict any use of the information to criminally investigate or prosecute any alcohol or drug abuse patient.[facility] ClinicIn the event this information is protected by the Federal Confidentiality of Alcohol and Drug Abuse Patient Records regulations: The Federal rules restrict any use of the information to criminally investigate or prosecute any alcohol or drug abuse patient.[facility] Reason for Visit (unrecogniz ed section and content) Reason Comments Refill Request Reason Onset Date Comments Refill Request 06/09/2021 Reason Comments Follow Up Reason Comments Results Reason Comments Received Outside Medical Records [facility] ED Reason Comments Received Outside Medical Records [facility] Car diac Cath Reason Comments Received Outside Medical Records Liver U S [facility] Reason Comments Received Outside Medical Records [facility] chest xray 12/18/2021 Reason Comments Received Outside Medical Records [facility] discharge instructions. 12/18/2021 Reason Comments Erroneous encounter-disregard Reason Comments Received Outside Medical Records EKG [facility] Reason Comments Hospital F/U Reason Comments Received Outside Medical Records [facility] 12 lead EKG 12/16/2021 and 12/17/2021 Reason Comments Received Outside Medical Records Pulmona ry Medicine [facility] Reason Comments Medication Problem Reason Onset Date Comments [facility] Out[facility] 04/27/2022 HCC Reason Comments Follow Up Reason Comments Follow Up pneumonia Reason Comments Orders Reason Comments Patient Question Reason Comments Received Outside Medical Records [facility] 09/07 07/30 Reason Comments Orders [employer] annual oxygen prescription renewal Reason Comments Received Outside Medical Records [facility] ED 03/15/23 Reason Onset Date Comments [facility] 04/15/2023 [employer] HCCs 2.16.24 Reason Onset Date Comments Refill Request 05/27/2023 Reason Comments Results Labs Reason Onset Date Comments Refill Request 07/11/2023 Reason Comments Medication Request Reason Onset Date Comments [facility] 08/03/2023 [employer] AWV/HCC and care gaps Reason Onset Date Comments [facility] 08/25/2023 [employer] Attributed Member- Needs 2023 [...] SPMTRY PRE&POST-BRNCDILAT ADMRaina Farooq MD [address] [place] [address] [facility] [place] [address] [place] [id number] Referral ID Status Reason Start Date Expiration Date V isits Requested Visits Authorized [id number] Closed Auto-Generate d Referral 03/05/2024 04/04/2025 1 1 Specialty Diagnoses / Procedures Referred By Contac t Referred To [facility] Diagnoses Chronic obstructive pulmonary disease, unspecified COPD type (HCC) Procedures LUNG DIFFUSION CAPACITY (DLCO) DIFFUSING CAPACITY Raina Huynh MD [address] [place] [address] [address] Referral ID Status Reason Start Date Expiration Date V isits Requested Visits Authorized [id number] Closed Auto-Generate d Referral 03/05/2024 04/04/2025 1 [...] Raina Huynh MD [address] [place] [address] Phone: tel: fax: [facility] [place] [address] [place] [phone] Referral ID Status Reason Start Date Expiration Date V isits Requested Visits Authorized [id number] Closed Auto-Generate d Referral 03/05/2024 04/04/2025 1 1 Reason Comments Established Patient COPD follow up Reason Comments Radiology CT Specialty Diagnoses / Procedures Referred By Clayac t Referred To Contact CT IMAG[facility] Diagnoses Pneumonia of left lower lobe due to infectious organism Lung nodules Procedures CT CHEST WO IVCON DIAGNOSTIC COMPUTED TOMOGRAPHY THORAX W/O CNTRST Raina Huynh MD [address] [place] [address] Phone: tel: fax: [place] [phone] Referral ID Status Reason Start Date Expiration Date V isits Requested Visits Authorized [id number] Closed Auto-Generate d Referral 03/05/2024 04/04/2025 1 [...] Care Teams (unrecognized sec tion and content) 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 Specialty Start Date End Date Paddy Zaidi MD [facility] [address] PCP - General Family Practice 05/27/15 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 Specialty Start Date End Date Paddy Zaidi MD [address] [place] [address], [place] [address] PCP - General Family Practice 05/27/15 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 Specialty Start Date End Date Paddy Zaidi MD [address] [place] [address], [place] [address] PCP - General Family Practice 05/27/15 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 Specialty Start Date End Date Paddy Zaidi MD [address] [place] [address], [place] [address] PCP - General Family Practice 05/27/15 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 Specialty Start Date End Date Paddy Zaidi MD [address] [place] [address], [place] [address] PCP - General Family Practice 05/27/15 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 Specialty Start Date End Date Paddy Zaidi MD [address] [place] [address], [place] [address] PCP - General Family Medicine 05/27/15 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 Specialty Start Date End Date Paddy Zaidi MD [address] [place] [address], [place] [address] PCP - General Family Medicine 05/27/15 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 Specialty Start Date End Date Paddy Zaidi MD [address] [place] [address] [place] [address] PCP - General Family Medicine 05/27/15 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 Specialty Start Date End Date Paddy Zaidi MD [address] [facility] [place] [address] PCP - General Family Medicine 05/27/15 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 Specialty Start Date End Date Paddy Zaidi MD [address] [facility] [place] [address] PCP - General Family Medicine 05/27/15 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 Specialty Start Date End Date Paddy Zaidi MD [facility] [place] [address] PCP - General Family Medicine 05/27/15 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 Specialty Start Date End Date Paddy Zaidi MD [address] [place], [place] [address], [place] [address] PCP - General Family Medicine 05/27/15 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 Specialty Start Date End Date Paddy Zaidi MD [address] [place], [place] [address], [place] [address] PCP - General Family Medicine 05/27/15 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 Specialty Start Date End Date Paddy Zaidi MD [address] [place], [place] [address], [place] [address] PCP - General Family Medicine 05/27/15 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 Specialty Start Date End Date Paddy Zaidi MD [address] [place], [place] [address], [place] [address] PCP - General Family Medicine 05/27/15 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 Specialty Start Date End Date Paddy Zaidi MD [address] [place], [place] [address], [place] [address] PCP - General Family Medicine 05/27/15 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 Specialty Start Date End Date Paddy Zaidi MD [address] [place] [address], [place] [address] PCP - General Family Medicine 05/27/15 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 Specialty Start Date End Date Paddy Zaidi MD [address] [facility] [address] PCP - General Family Medicine 05/27/15 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 Specialty Start Date End Date Paddy Zaidi MD [address] [facility] [address] PCP - General Family Medicine 05/27/15 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 Specialty Start Date End Date Paddy Zaidi MD [address] [place] [address] PCP - General Family Medicine 05/27/15 Team Status: Active Member Role Status Dates Dr. Shayne Zaidi MD Family Provider Active Dr. Shayne Zaidi MD Primary Care Provider Active Team Status: Inactive Member Role Status Dates Dr. Shayne Zaidi MD Primary Care Provider Active Dr. Adrian Eddy DO Emergency Provider Active 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 Specialty Start Date End Date Paddy Zaidi MD [address] [place] [address] PCP - General Family Medicine 05/27/15 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 Specialty Start Date End Date Paddy Zaidi MD [address] [place] [address] PCP - General Family Medicine 05/27/15 Team Status: Inactive Member Role Status Dates Dr. Shayne Zaidi MD Primary Care Provider Active Dr. Parker Metzger MD Emergency Provider Active 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 Specialty Start Date End Date Paddy Zaidi MD [address] [place] [address] PCP - General Family Medicine 05/27/15 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 Specialty Start Date End Date Paddy Zaidi MD [address] [place] [address] PCP - General Family Medicine 05/27/15 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 Specialty Start Date End Date Paddy Zaidi MD [address] [place], [place] [address]391 PCP - General Family Medicine 05/27/15 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 Specialty Start Date End Date Paddy Zaidi MD [address] [place] [address] PCP - General Family Medicine 05/27/15 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 Specialty Start Date End Date Paddy Zaidi MD [address] [place] [address] PCP - General Family Medicine 05/27/15 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 Specialty Start Date End Date Paddy Zaidi MD [address] [place] [address] PCP - General Family Medicine 05/27/15 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 Specialty Start Date End Date Paddy Zaidi MD [address] [place] [address] PCP - General Family Medicine 05/27/15 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 Specialty Start Date End Date Paddy Zaidi MD [address] [place], [place] [address] PCP - General Family Medicine 05/27/15 Hever Martínez APRN.ASPHALT MIXER [address] [facility] [address] [place], [place] [address] Assembler Insulator Internal Medicine 01/15/24 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 Specialty Start Date End Date Paddy Zaidi MD [address] [place], [place] [address]301 PCP - General Family Medicine 05/27/15 Hever Martínez, WELDING TEACHER.ASPHALT MIXER [address] [facility] [address] [place], [place] [address] Assembler Insulator Internal Medicine 01/15/24 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 Specialty Start Date End Date Paddy Zaidi MD [address] [place], [place] [address]89[address] PCP - General Family Medicine 05/27/15 Hever Martínez, WELDING TEACHER.ASPHALT MIXER [address] [facility] [address] [place], [place] [address] Assembler Insulator Internal Medicine 01/15/24 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 Specialty Start Date End Date Paddy Zaidi MD [address] [place], [place] [address]141 PCP - General Family Medicine 05/27/15 Hever Martínez, WELDING TEACHER.ASPHALT MIXER [address] [facility] [address] [place] [address] Assembler Insulator Internal Medicine 01/15/24 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 Specialty Start Date End Date Paddy Zaidi MD [address] [place], [place] [address] PCP - General Family Medicine 05/27/15 Hever Martínez, WELDING TEACHER.ASPHALT MIXER [address] [facility] [address] [place] [address] Assembler Insulator Internal Medicine 01/15/24 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 Specialty Start Date End Date Paddy Zaidi MD [address] [place], [place] [address] PCP - General Family Medicine 05/27/15 Hever Martínez APRN.ASPHALT MIXER [address] [facility] [address] [place], [place] [address] Assembler Insulator Internal Medicine 01/15/24 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 Specialty Start Date End Date Paddy Zaidi MD [address] [place], [place] [address]57[address] PCP - General Family Medicine 05/27/15 Hever Martínez, WELDING TEACHER.ASPHALT MIXER [address] [facility] [address] [place], [place] [address] Assembler Insulator Internal Medicine 01/15/24 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 Specialty Start Date End Date Paddy Zaidi MD [address] [place], [place] [address] PCP - General Family Medicine 05/27/15 Hever Martínez, WELDING TEACHER.ASPHALT MIXER [address] [facility] [address] [place], [place] [address] Assembler Insulator Internal Medicine 01/15/24 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 Specialty Start Date End Date Paddy Zaidi MD [address] [place], [place] [address] PCP - General Family Medicine 05/27/15 Hever Martínez, WELDING TEACHER.ASPHALT MIXER [address] [facility] [address] [place], [place] [address] Assembler Insulator Internal Medicine 01/15/24 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 Specialty Start Date End Date Paddy Zaidi MD [address] [place], [place] 129291 PCP - General Family Medicine 05/27/15 Hever Martínez, WELDING TEACHER.ASPHALT MIXER [address] [facility] [place] [address] Assembler Insulator Internal Medicine 01/15/24 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 Specialty Start Date End Date Paddy Zaidi MD [address] [place] [address] PCP - General Family Medicine 05/27/15 Hever Martínez, WELDING TEACHER.ASPHALT MIXER [address] [facility] [place] [address] Assembler Insulator Internal Medicine 01/15/24 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 Specialty Start Date End Date Paddy Zaidi MD [address] [place], [place] [address]85141 PCP - General Family Medicine 05/27/15 Hever Martínez, WELDING TEACHER.ASPHALT MIXER [address] [facility] [place] [address] Assembler Insulator Internal Medicine 01/15/24 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 Specialty Start Date End Date Paddy Zaidi MD [address] [place] [address] PCP - General Family Medicine 05/27/15 Hever Martínez, WELDING TEACHER.ASPHALT MIXER [address] [facility] [place] [address] Assembler Insulator Internal Medicine 01/15/24 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 Specialty Start Date End Date Paddy Zaidi MD [address] [place] [address] PCP - General Family Medicine 05/27/15 Hever Martínez, WELDING TEACHER.ASPHALT MIXER [address] [facility] [place] [address] Assembler Insulator Internal Medicine 01/15/24 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 Specialty Start Date End Date Paddy Zaidi MD [address] [place] [address] PCP - General Family Medicine 05/27/15 Hever Martínez, WELDING TEACHER.ASPHALT MIXER [address] [facility] [place] [address] Assembler Insulator Internal Medicine 01/15/24 Team Status: Active Member [...] 2024 End: September 12, 2024 Arturo Rose TUFTING SUPERVISOR, TUFTING SUPERVISOR-C Other Provider Active Start : September 10, [...] Active Start: September 11, 2024 Arturo Rose TUFTING SUPERVISOR, TUFTING SUPERVISOR-C Other Provider Active Start : September 11, [...] Active Start: September 11, 2024 Arturo Rose TUFTING SUPERVISOR, TUFTING SUPERVISOR-C Other Provider Active Start : September 11, [...] BE BASED ON THE PRIMARY CLINICAL RECORDS. [facility]. provides no warranty or guarantee of the accuracy or completeness of information in this document.
[2024-09-16 22:37] LABS: Magnesium 2.3 mg/dL (1.5-2.2); Procalcitonin 0.09 ng/mL (<=0.10)
[2024-09-16 22:52] LABS: Troponin T High Sensitivity 12 ng/L (<=22)
[2024-09-16 22:53] LABS: Ammonia 31.9 umol/L (16-60)
[2024-09-16 22:55] LABS: Allen Test Positive; Base Excess 16 mmol/L (-2 to +2); FI02 3.0; PO2 120 mmHG (75-100); SITE R Radial; SO2 99 % (95-99)
[2024-09-17] VITALS (8 sets, daily range): BP systolic 100–156; BP diastolic 60–97; PULSE 91–106; RESP 18–20; TEMP 36.4–36.8; O2SAT 86–96; BMI 28.2
[2024-09-17 01:16] LABS: Troponin T High Sens 2 HR 13 ng/L (<=22)
--- NOTE | 2024-09-17 01:56 | CPS ---
Oxygen decreased due to ABG results
--- NOTE | 2024-09-17 01:57 | CPS ---
Patient non-compliant with PAP therapy at home, therefore Bipap not started by this OPTICAL ENGINEERING TECHNICIAN, Dr. Walters notified and also agrees to monitor patient without Bipap therapy as of now
[2024-09-17 02:11] LABS: Hematocrit 42.9 % (40-54); Hemoglobin 13.5 g/dL (13.0-16.5); Immature Granulocytes Count 0.290 X10^3/uL (0.0-0.0); Mean Corp Hgb Conc 31.5 g/dL (32-36); Mean Corpuscular Volume 95.3 fL (80-94); Mean Platelet Vol. 9.1 fl (6.2-12.0); NRBC Flagged by Analyzer 0 % (0-5); Platelet Count 177 K/mm3 (150-450); RBC Distribution Width CV 13.2 % (11.6-14.6); RBC Distribution Width SD 46.6 fl (35.1-43.9); Red Blood Count 4.50 M/mm3 (4.6-6.2); White Blood Count 16.9 K/mm3 (4.4-11.0)
[2024-09-17 02:29] LABS: Prothrombin Time (Protime)PT. 35.1 SECONDS (11.7-14.9)
[2024-09-17 02:37] LABS: Troponin T High Sens 4 HR 14 ng/L (<=22)
[2024-09-17 03:00] LABS: AST(SGOT) 21 U/L (<=37); Alanine Aminotransfer ALT/SGPT 26 U/L (<=46); Albumin, Serum 3.6 g/dL (3.4-4.8); Alkaline Phosphatase 131 U/L (40-129); Anion Gap 11 (5-15); BUN 25 mg/dL (4-19); BUN/Creat Ratio 31.7 RATIO (10-20); Calcium,Total 9.2 mg/dL (7.6-11.0); Carbon Dioxide 33.0 mmol/L (21.0-32.0); Chloride 93 mmol/L (98-108); Estimated Creatinine Clearance 78.17 ml/min (50-250); Globulin 3.1 g/dL (2.2-4.2); Glucose 106 mg/dL (70-99); Potassium 4.4 mmol/L (3.3-5.1)
--- NOTE | 2024-09-17 08:30 | PN.HOSP_ITS ---
Reason for Visit Chief Complaint: Confusion Objective Data Objective Data Vital Signs: Vital Signs Temp Pulse Resp BP Pulse Ox O2 Del Method O2 Flow Rate 97.6 F L 106 H 18 156/97 H 95 Nasal Cannula 1.5 09/17/24 02:15 09/17/24 02:15 09/17/24 02:15 09/17/24 02:15 09/17/24 02:15 09/17/24 06:50 09/17/24 02:15 Oxygen Flow Rate (L/min) 1.5 Oxygen Delivery Method Nasal Cannula Weight: 201 lb 11.567 oz Body Mass Index (BMI) 28.2 Intake & Output: Intake and Output for Last 24 Hours 09/15/24 09/16/24 09/17/24 23:59 23:59 23:59 Intake Total 347.5 / 347.5 Output Total 600 / 600 Balance 347.5 / 347.5 -600 / -600 Lab / Micro Data 09/17/24 01:53 09/17/24 01:53 Labs: Laboratory Results - last 24 hr 09/16/24 18:25: WBC 18.0 H, RBC 4.62, Hgb 13.9, Hct 44.0, MCV 95.2 H, MCH 30.1, MCHC 31.6 L, RDW Std Deviation 46.3 H, RDW Coeff of Erica 13.2, Plt Count 201, MPV 9.1, Immature Gran % (Auto) 1.800 H, Neut % (Auto) 85.4 H, Lymph % (Auto) 4.6 L, [place] % (Auto) 4.1, Eos % (Auto) 3.7, Baso % (Auto) 0.4, Absolute Neuts (auto) 15.3 H, Absolute Lymphs (auto) 0.83, Nucleated RBC % 0, PT 32.4 H, INR 3.1, Sodium 138, Potassium 4.6, Chloride 93 L, Carbon Dioxide 35.6 H, Anion Gap 9, B UN 24 H, Creatinine 0.81, Estim Creat Clear Calc 80.91, Est GFR (MDRD) Non-Af 87, BUN/Creatinine Ratio 29.2 H, Glucose 112 H, Calcium 9.3, Magnesium 2.3 H, Procalcitonin 0.09 09/16/24 19:38: Urine Color Yellow, Urine Clarity Clear, Urine pH 7.0, Ur Specific [place] 1.010, Urine Protein 30 H, Urine Glucose (UA) Normal, Urine Ketones Negative, Urine Occult Blood 250 H, Urine Nitrite Negative, Urine Bilirubin Negative, Urine Urobilinogen 4 H, Ur Leukocyte Esterase 25 H, Urine RBC 5-10 SEEN, Urine WBC 0-5 SEEN, Ur Squamous Epith Cells 0-5 SEEN, Urine Bacteria 1+, Hyaline Casts 10-25 SEEN, Urine Mucus 0 SEEN 09/16/24 22:15: Ammonia 31.9, Troponin T High Sens 12 D 09/17/24 00:25: Troponin T Hi Sens 2 Hr 13 09/17/24 01:53: WBC 16.9 H, RBC 4.50 L, Hgb 13.5, Hct 42.9, MCV 95.3 H, MCH 30.0, MCHC 31.5 L, RDW Std Deviation 46.6 H, RDW Coeff of Erica 13.2, Plt Count 177, MPV 9.1, Immature Gran % (Auto) 1.700 H, Neut % (Auto) 85.0 H, Lymph % (Auto) 4.6 L, [place] % (Auto) 4.8, Eos % (Auto) 3.5, Baso % (Auto) 0.4, Absolute Neuts (auto) 14.3 H, Absolute Lymphs (auto) 0.78 L, Nucleated RBC % 0, PT 35.1 H , INR 3.4, Sodium 138, Potassium 4.4, Chloride 93 L, Carbon Dioxide 33.0 H, Anion Gap 11, BUN 25 H, Creatinine 0.77, Estim Creat Clear Calc 78.17, Est GFR (MDRD) Non-Af 88, BUN/Creatinine Ratio 31.7 H, Glucose 106 H, Calcium 9.2, Total Bilirubin 0.75, AST 21, ALT 26, Alkaline Phosphatase 131 H, Troponin T Hi Sens 4Hr 14, Total Protein 6.7, Albumin 3.6, Globulin 3.1, Albumin/Globulin Ratio 1.2, TSH 2.330 ABG Data ABG results: ABG 09/16/24 22:52 Specimen Type ART Sample Site R Radial pH 7.41 Bicarbonate Actual 40.2 H Total CO2 42 Base Excess 16 H O2 Saturation 99 O2 % 3.0 ABG pCO2 63.2 H ABG pO2 120 H Blas Test Positive O2 Delivery Device Cannula Vent Mode Not entered Radiography Diagnostic Testing: Radiology Impression Brain CT 09/16/24 18:50 IMPRESSION: No acute intracranial finding. Reading Location: [facility] Chest X-Ray 09/16/24 20:10 IMPRESSION: No Acute Findings. Reading [facility] Physical Exam Narrative Seen and examined Patient is hard of hearing using hearing aid . He told he is a [employer] 86 and month October. Physical exam General: Awake, anxious, disoriented to time. Oriented to person and place. HEENT: Atraumatic, PERRLA, EOMI, Normocephalic. Oral: No Gingival or Mucosal Lesions/ Ulcerations Neck: Supple, No JVD, Negative Carotid Bruits Chest wall/Lungs: Air entry diminished in bilateral lung bases. No crepitation/rhonchi Cardiovascular: Irregular rhythm, A-fib, No M/G/R Abdomen: Bowel Sounds Present, Soft, Non Tender, Non-Distended : No dysuria. No renal angle tenderness. No suprapubic tenderness. Extremities: No edema, Capillary Refill Less than 3 Seconds Skin: No rashes, No breakdown Musculoskeletal: No Tenderness to Palpation of Joints or Extremities Neurological: Cranial nerves II-XII grossly intact, DTR 2+/4. No acute focal neurological deficit. Psych/Mental Status: Flat affect, anxious. Assessment & Plan Assessment/Plan (1) Altered mental status: (2) Leukocytosis: PLAN: Plan The patient is 83-year-old gentleman being admitted for confusion, talking irrelevant. As per EMS patient was been talking to family members, hallucination/delusion. He stated he felt a lot of anxiety. Patient was discharged with recent aspiration pneumonia and completed antibiotic Augmentin #1. Altered mental status/delusions/hallucination, talking irrelevant: Exact etiology unclear. MRI is ordered. CT head does not show acute intracranial abnormality. Procalcitonin normal. ABG 7.4 1/63/120/40.2. Total bicarb 42. BMP bicarb is 35.6. High discrepancy more than 5. #2. Chronic HFpEF with recent Acute HFpEF Exacerbation: Chest x-ray no acute finding. INR 3.1 increased to 3.4. Continue INR. Continue statin therapy, atenolol, spironolactone, Lasix regimen. IV fluid in ED discontinued most recent echocardiogram during recent admission 09/10/2024 with normal LV size, LV systolic function lower limits of normal, EF 53%, mild focal MV calcification, bileaflet, PASP 40 mmHg. #3. Recent aspiration pneumonia: On oral Augmentin. Speech therapy consulted. Aspiration precaution. Continue diet adjustment with nectar thickened liquids. #4. PAF: INR supratherapeutic on atenolol. Heart rate 106. #5. CAD: Status post previous CABG x 2 and PCI noted of the distal left main and then the circumflex artery, also saphenous vein graft to the obtuse marginal branch and [place] to the LAD previously noted to be patent with an occluded right coronary artery and [id number] collaterals evident. Continue baby aspirin, statin therapy, atenolol, not on ISSAC inhibitor/ARB, unclear reason. Losartan 50 mg started #6. Chronic COPD with chronic hypoxic respiratory failure: on 3 L NC home oxygen supplementation, temporarily hold home inhaler and transition interim to ATC budesonide therapy given PAF with RVR recent presentation concurrently, PRN albuterol, HOB, IS parameters. #7. Hypertension: Continue home regimen including spironolactone, Lasix, atenolol with hold parameters as needed, PRN hydralazine. #8. Hyperlipidemia: continue patient home statin therapy. #9. Hypothyroidism: continue patient on levothyroxine regimen, TSH requested. #10. Chronic neuropathy: continue patient on gabapentin regimen, low threshold to hold for sedation. #11. History of CVA: Patient with history of previous strokes including left brainstem stroke, will continue to baby aspirin, Coumadin with INR trending, statin therapy, hypertensive regimen as noted. #12. Chronic Kidney Disease Stage II: Admission BUN/Cr 24/0.1, GFR 87, baseline renal function 0.6-0.9, repeat BMP in AM. #13. Anxiety and depression, panic attacks: Will continue patient on paroxetine regimen. Administered low-dose IV Ativan in the ED however patient following as expected is somnolent thus will avoid further administration if able. #14. Obesity: Weight loss and lifestyle changes encouraged. #15. DVT prophylaxis: Will continue Coumadin with INR trending, 3.1 upon admission. #16. CODE status: Full Code. Laboratory Results 09/16/24 18:25: WBC 18.0 H, RBC 4.62, Hgb 13.9, Hct 44.0, MCV 95.2 H, MCH 30.1, MCHC 31.6 L, RDW Std Deviation 46.3 H, RDW Coeff of Erica 13.2, Plt Count 201, MPV 9.1, Immature Gran % (Auto) 1.800 H, Neut % (Auto) 85.4 H, Lymph % (Auto) 4.6 L, [place] % (Auto) 4.1, Eos % (Auto) 3.7, Baso % (Auto) 0.4, Absolute Neuts (auto) 15.3 H, Absolute Lymphs (auto) 0.83, Nucleated RBC % 0, PT 32.4 H, INR 3.1, Sodium 138, Potassium 4.6, Chloride 93 L, Carbon Dioxide 35.6 H, Anion Gap 9, B UN 24 H, Creatinine 0.81, Estim Creat Clear Calc 80.91, Est GFR (MDRD) Non-Af 87, BUN/Creatinine Ratio 29.2 H, Glucose 112 H, Calcium 9.3, Magnesium 2.3 H, Procalcitonin 0.09 09/16/24 19:38: Urine Color Yellow, Urine Clarity Clear, Urine pH 7.0, Ur Specific [place] 1.010, Urine Protein 30 H, Urine Glucose (UA) Normal, Urine Ketones Negative, Urine Occult Blood 250 H, Urine Nitrite Negative, Urine Bilirubin Negative, Urine Urobilinogen 4 H, Ur Leukocyte Esterase 25 H, Urine RBC 5-10 SEEN, Urine WBC 0-5 SEEN, Ur Squamous Epith Cells 0-5 SEEN, Urine Bacteria 1+, Hyaline Casts 10-25 SEEN, Urine Mucus 0 SEEN 09/16/24 22:15: Ammonia 31.9, Troponin T High Sens 12 D 09/16/24 22:52: Specimen Type ART, Sample Site R Radial, pH 7.41, Bicarbonate Actual 40.2 H, Total CO2 42, Base Excess 16 H, O2 Saturation 99, O2 % 3.0, ABG pCO2 63.2 H, ABG pO2 120 H, Blas Test Positive, O2 Delivery Device Cannula, Vent Mode Not entered 09/17/24 00:25: Troponin T Hi Sens 2 Hr 13 09/17/24 01:53: WBC 16.9 H, RBC 4.50 L, Hgb 13.5, Hct 42.9, MCV 95.3 H, MCH 30.0, MCHC 31.5 L, RDW Std Deviation 46.6 H, RDW Coeff of Erica 13.2, Plt Count 177, MPV 9.1, Immature Gran % (Auto) 1.700 H, Neut % (Auto) 85.0 H, Lymph % (Auto) 4.6 L, [place] % (Auto) 4.8, Eos % (Auto) 3.5, Baso % (Auto) 0.4, Absolute Neuts (auto) 14.3 H, Absolute Lymphs (auto) 0.78 L, Nucleated RBC % 0, PT 35.1 H , INR 3.4, Sodium 138, Potassium 4.4, Chloride 93 L, Carbon Dioxide 33.0 H, Anion Gap 11, BUN 25 H, Creatinine 0.77, Estim Creat Clear Calc 78.17, Est GFR (MDRD) Non-Af 88, BUN/Creatinine Ratio 31.7 H, Glucose 106 H, Calcium 9.2, Total Bilirubin 0.75, AST 21, ALT 26, Alkaline Phosphatase 131 H, Troponin T Hi Sens 4Hr 14, Total Protein 6.7, Albumin 3.6, Globulin 3.1, Albumin/Globulin Ratio 1.2, TSH 2.330 Charges/Coding Visit Charges Inpatient E&M: 89890 Subs Hosp L2
[2024-09-17] MEDS: Potassium Chloride Oral Tablet 20 MEQ PO (09:00)
--- NOTE | 2024-09-17 10:45 | MRI_ITS ---
PROCEDURE: BRAIN WITHOUT CONTRAST 09/17/2024 REASON FOR EXAM: ACUTE ENCEPHALOPATHY TECHNIQUE: BRAIN WITHOUT CONTRAST Multiplanar and multisequence images were obtained. COMPARISON: 09/16/2024. FINDINGS: The ventricles are normal in size and midline in position. Periventricular white matter T2/FLAIR hyperintense foci likely representing chronic microvascular ischemia. No evidence of acute hemorrhage or infarction. No extra-axial blood or fluid collections. The paranasal sinuses and mastoid air cells are clear. The calvarial vault and skull base are intact. MRI/Brain without Contrast IMPRESSION: No acute intracranial abnormality. Reading Location: [id number]
--- NOTE | 2024-09-17 11:32 | NURSING ---
Attempted to call patient's son to complete MRI checklist. Phone went straight to voicemail.
--- NOTE | 2024-09-17 12:12 | CON.PCM.NE_ITS ---
Assessment and Plan: Neuro Assessment/Plan ARTURO LUNA is a 83 M with a past medical history of , being evaluated by Teleneurology for confusion of unclear etiology. History is limited as unable to get additional information from the person he lives with. Exam is significant for intattention predominently but appears to have some R arm weakness and some possible L leg ataxia which is odd but localizes to possible multiple vascular territories. At this time most concerning ddx is stroke (although INR supratherapeutic) vs delirium from an unclear metabolic/infectious source (white count elevated, potentially still struggling to get over PNA). Plan: - agree with MRI Brain - delirium precautions I personally attended this patient and spent a total time of 45minutes evaluating this patient including clinical assessment, review of chart, medical history imaging, and determining appropriate treatment and workup. HPI Consult Data Date of Consult: 09/18/24 HPI Narrative HPI Narrative: The patient is an 83 y/o M w/ PMHx: Obesity, HTN, HLD, CAD s/p CABG x 2 and PCI, HFpEF, Hypothyroidism, Chronic neuropathy, CKD stage II per GFR trending, Hx CVA, Anxiety and Depression/Panic attacks, recent discharge 09/12/24 following evaluation and treatment of chronic hypoxic respiratory failure secondary to acute HFrEF exacerbation in addition to aspiration pneumonia discharged on Augmentin as well as PAF with RVR with atenolol increased by cardiology during previous evaluation and continuation of patient Coumadin with INR trending to now re-presents to the [facility] ED on 09/16/2024 with history of reported confusion that started the evening prior with family noting concern for hallucinations with patient upon arrival not understanding why he was brought to the ED but noting he is very anxious and requesting medication Neurologic History Patient states hs is not sure what is happening or why he is in the hospital. Does not know date or time. Per daughter in law who walked in, he has been a little more confused for several days but unclear what exact timeline. Unclear to her what the hallucinations are but states that typically he knows where he is and lives with a friend. The friend is concerned as well. She is not clear if there has been a change in his medications. Neurologic Exam: -? General: Laying comfortably in bed; in no acute distress. -? HENT: Normal oropharynx and mucosa. Normal external appearance of ears and nose. Exophthalmos. -? Neck: Supple, no pain or tenderness -? CV:? No peripheral edema. -? Pulmonary:? Normal respiratory effort. -? Ext: No cyanosis, edema, or deformity -? Skin: No rash. Normal palpation of skin.? -? Musculoskeletal: full range of motion; no joint tenderness. Normal digits and nails by inspection. No clubbing. -? NEURO: -? Mental Status: The patient was alert but poorly oriented to time, place, and person. Unsure why in hospital, states it is every day of the week and thinks it was April. Poor attention -? Language: speech is intact.? Naming, repetition, fluency, and comprehension intact. -? Cranial Nerves: PERRL 3mm/brisk. EOMI, visual bailey full, no facial asymmetry, facial sensation intact, hearing intact, tongue midline, no evidence of atrophy or fibrillations. -? Motor: RUE drift Difficulty with following commands to do formal strength testing but fights the providers -? Sensation- Intact to light touch bilaterally -? Coordination: No dysmetria on [id number], LLE ataxia -? 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) Central sleep apnea Stage 2 moderate COPD by GOLD classification HTN (hypertension) Hoarseness left vocal cord paralysis Home Medications ?Medication ?Instructions ?Recorded ?Last Taken ?Type levothyroxine 50 mcg tablet 50 mcg PO DAILY thyroid 12/14/21 History atorvastatin 40 mg tablet 40 mg PO QHS cholesterol 12/14/21 History spironolactone 25 mg tablet 25 mg PO DAILY diuretic 12/14/21 History aspirin 81 mg chewable tablet 81 mg PO DAILY@0800 heal th 12/14/21 12/14/21 History potassium chloride 10 mEq 20 meq PO DAILY supplement 1 02/13/21 12/14/21 History tablet,extended release albuterol sulfate 90 mcg/actuation 2 puff inhalation Q 4H PRN PRN 03/15/23 Unknown Rx aerosol inhaler (Ventolin HFA) Wheezing ##1 fluticasone 250 mcg-salmeterol 50 1 inh inhalation Q12 H 09/10/24 Unknown History mcg/dose blistr powdr for inhalation gabapentin 300 mg capsule 300 mg PO BID 09/10/24 Unkno wn History nitroglycerin 0.3 mg sublingual 0.3 mg sublingual Q5M PRN chest 09/10/24 Unknown History tablet pain paroxetine HCl 40 mg tablet 40 mg PO DAILY 09/10/24 Un known History amoxicillin 875 mg-potassium 1 tab PO BIDCM #11 tabs 0 09/12/24 Unknown Rx clavulanate 125 mg tablet atenolol 50 mg tablet 50 mg PO DAILY #30 tabs 08/01 Unknown Rx furosemide 40 mg tablet (Lasix) 40 mg PO BID #60 tabs 09/12/24 Unknown Rx warfarin 2.5 mg tablet (Jantoven) 5 mg (2 x 2.5 mg) PO 1700 #60 tabs 09/12/24 Unknown Rx Allergy/AdvReac Type Severity Reaction Status Date / Time oxycodone (From Percodan) Allergy Other Verified 09/16/24 18:21 Surgical History History of coronary artery stent placement (12/16/21) Cataract extraction status History of hip replacement History of open heart surgery Social History (Updated 09/16/24 @ 21:[address] Olivia Walters MD) household members: family Smoking Status: Former smoker quit date: 02/08/92 pack-years: 37 Tobacco: How many years used: 20 alcohol intake: never substance use type: does not use Vital Signs Vital Signs Vital Signs: 09/16/24 18:21 09/16/24 18:27 09/16/24 18:31 Temperature 97.7 F L 98.2 F Temperature Source Temporal Oral Pulse Rate 95 100 Pulse Strength Respiratory Rate 14 22 H Respiratory Effort Respiratory Depth Respiratory Pattern Normal Blood Pressure 122/72 H 133/74 H Blood Pressure Mean 88 93 Pulse Ox 97 95 Oxygen Delivery Method Nasal Cannula Nasal Cannula Oxygen Flow Rate (L/min) 4 2 09/16/24 19:31 09/16/24 20:00 09/16/24 20:50 Temperature 98.3 F 98.7 F 98.7 F Temperature Source Oral Oral Pulse Rate 90 90 90 Pulse Strength Respiratory Rate 18 18 18 Respiratory Effort Respiratory Depth Respiratory Pattern Blood Pressure 140/87 H 146/70 H 146/70 H Blood Pressure Mean 104 95 95 Pulse Ox 98 98 98 Oxygen Delivery Method Room Air Room Air Oxygen Flow Rate (L/min) 09/16/24 21:00 09/16/24 22:10 09/16/24 22:35 Temperature 98.3 F 97.8 F Temperature Source Oral Temporal Pulse Rate 100 88 Pulse Strength Respiratory Rate 20 H 18 Respiratory Effort Normal Non-Labored Respiratory Depth Normal Respiratory Pattern Normal Blood Pressure 149/72 H 138/78 H Blood Pressure Mean 97 98 Pulse Ox 98 94 Oxygen Delivery Method Room Air Nasal Cannula Nasal Cannula Oxygen Flow Rate (L/min) 3 3 09/16/24 22:58 09/16/24 23:03 09/17/24 02:15 Temperature 97.6 F L Temperature Source Temporal Pulse Rate 106 H Pulse Strength Respiratory Rate 18 Respiratory Effort Respiratory Depth Respiratory Pattern Blood Pressure 156/97 H Blood Pressure Mean 116 Pulse Ox 94 95 Oxygen Delivery Method Nasal Cannula Nasal Cannula Nasal Cannula Oxygen Flow Rate (L/min) 1.5 1.5 1.5 09/17/24 02:17 09/17/24 06:50 09/17/24 08:49 Temperature Temperature Source Pulse Rate Pulse Strength Respiratory Rate Respiratory Effort Normal Non-Labored Respiratory Depth Normal Respiratory Pattern Normal Blood Pressure Blood Pressure Mean Pulse Ox 86 Oxygen Delivery Method Nasal Cannula Nasal Cannula Oxygen Flow Rate (L/min) 2 09/17/24 08:49 09/17/24 08:53 09/17/24 09:06 Temperature 98.2 F Temperature Source Oral Pulse Rate 106 H Pulse Strength Weak (1+) Respiratory Rate 18 Respiratory Effort Normal Non-Labored Respiratory Depth Normal Respiratory Pattern Normal Blood Pressure 139/87 H Blood Pressure Mean 104 Pulse Ox 96 Oxygen Delivery Method Nasal Cannula Nasal Cannula Oxygen Flow Rate (L/min) 3 3 09/17/24 11:29 09/17/24 11:30 Temperature Temperature Source Pulse Rate Pulse Strength Respiratory Rate Respiratory Effort Respiratory Depth Respiratory Pattern Blood Pressure Blood Pressure Mean Pulse Ox Oxygen Delivery Method Oxygen Flow Rate (L/min) 2 3 Weight Weight: 91.5 kg Body Mass Index (BMI) 28.2 EEG Results Procedure Details EEG Procedure Details: ARTURO LUNA is a 83 year old M with a past medical history of , who presents for evaluation of Electroencephalogram on DATE at TIME Lab / Micro Data 09/18/24 06:58 09/17/24 01:53 Labs: Laboratory Results - last 24 hr 09/16/24 18:25: WBC 18.0 H, RBC 4.62, Hgb 13.9, Hct 44.0, MCV 95.2 H, MCH 30.1, MCHC 31.6 L, RDW Std Deviation 46.3 H, RDW Coeff of Erica 13.2, Plt Count 201, MPV 9.1, Immature Gran % (Auto) 1.800 H, Neut % (Auto) 85.4 H, Lymph % (Auto) 4.6 L, [place] % (Auto) 4.1, Eos % (Auto) 3.7, Baso % (Auto) 0.4, Absolute Neuts (auto) 15.3 H, Absolute Lymphs (auto) 0.83, Nucleated RBC % 0, PT 32.4 H, INR 3.1, Sodium 138, Potassium 4.6, Chloride 93 L, Carbon Dioxide 35.6 H, Anion Gap 9, B UN 24 H, Creatinine 0.81, Estim Creat Clear Calc 80.91, Est GFR (MDRD) Non-Af 87, BUN/Creatinine Ratio 29.2 H, Glucose 112 H, Calcium 9.3, Magnesium 2.3 H, Procalcitonin 0.09 09/16/24 19:38: Urine Color Yellow, Urine Clarity Clear, Urine pH 7.0, Ur Specific [place] 1.010, Urine Protein 30 H, Urine Glucose (UA) Normal, Urine Ketones Negative, Urine Occult Blood 250 H, Urine Nitrite Negative, Urine Bilirubin Negative, Urine Urobilinogen 4 H, Ur Leukocyte Esterase 25 H, Urine RBC 5-10 SEEN, Urine WBC 0-5 SEEN, Ur Squamous Epith Cells 0-5 SEEN, Urine Bacteria 1+, Hyaline Casts 10-25 SEEN, Urine Mucus 0 SEEN 09/16/24 22:15: Ammonia 31.9, Troponin T High Sens 12 D 09/17/24 00:25: Troponin T Hi Sens 2 Hr 13 09/17/24 01:53: WBC 16.9 H, RBC 4.50 L, Hgb 13.5, Hct 42.9, MCV 95.3 H, MCH 30.0, MCHC 31.5 L, RDW Std Deviation 46.6 H, RDW Coeff of Erica 13.2, Plt Count 177, MPV 9.1, Immature Gran % (Auto) 1.700 H, Neut % (Auto) 85.0 H, Lymph % (Auto) 4.6 L, [place] % (Auto) 4.8, Eos % (Auto) 3.5, Baso % (Auto) 0.4, Absolute Neuts (auto) 14.3 H, Absolute Lymphs (auto) 0.78 L, Nucleated RBC % 0, PT 35.1 H , INR 3.4, Sodium 138, Potassium 4.4, Chloride 93 L, Carbon Dioxide 33.0 H, Anion Gap 11, BUN 25 H, Creatinine 0.77, Estim Creat Clear Calc 78.17, Est GFR (MDRD) Non-Af 88, BUN/Creatinine Ratio 31.7 H, Glucose 106 H, Calcium 9.2, Total Bilirubin 0.75, AST 21, ALT 26, Alkaline Phosphatase 131 H, Troponin T Hi Sens 4Hr 14, Total Protein 6.7, Albumin 3.6, Globulin 3.1, Albumin/Globulin Ratio 1.2, TSH 2.330 ABG Data ABG results: ABG 09/16/24 22:52 Specimen Type ART Sample Site R Radial pH 7.41 Bicarbonate Actual 40.2 H Total CO2 42 Base Excess 16 H O2 Saturation 99 O2 % 3.0 ABG pCO2 63.2 H ABG pO2 120 H Blas Test Positive O2 Delivery Device Cannula Vent Mode Not entered Imaging Radiology Impression Brain CT 09/16/24 18:50 IMPRESSION: No acute intracranial finding. Reading Location: [id number] Chest X-Ray 09/16/24 20:10 IMPRESSION: No Acute Findings. Reading Location: [facility] Active Medications Active Medications Active Medications: Current Medications Generic Name Dose Route Start Last Admin Trade Name Freq PRN Reason Stop Dose Admin Acetaminophen 650 mg 09/16/24 21:48 Acetaminophen 325 Mg Tablet PO Q4H PRN PRN Fever, pain 1-10/10 Acetaminophen 650 mg 09/16/24 21:48 Acetaminophen 650 Mg Suppository RC Q4H PRN PRN Fever, pain 1-10 Al Hydroxide/Mg Hydroxide 30 ml 09/16/24 21:48 Mag Hydrox/Al Hydrox/Simeth 30 Ml Udc PO Q6H PRN PRN Gastric Burning Albuterol Sulfate 2.5 mg 09/16/24 21:48 Albuterol 2.5 Mg/3 Ml Vial.Neb. INHALATION Q2H PRN PRN Dyspnea, wheezing Amoxicillin/Clavulanate Potassium 875 mg 09/16/24 21:48 09/17/24 09:00 Amox/Clavulanate 875 Mg Tablet PO 875 mg BIDCM FRANNY Administration Aspirin 81 mg 09/17/24 08:00 09/17/24 09:01 Aspirin 81 Mg Tab.Chew PO 81 mg BREAKFAST FRANNY Administration Atenolol 50 mg 09/17/24 10:00 09/17/24 09:00 Atenolol 50 Mg Tablet PO 50 mg DAILY FRANNY Administration Protocol Atorvastatin Calcium 40 mg 09/16/24 22:00 09/17/24 00:29 Atorvastatin Calcium 40 Mg Tablet PO Not Given QHS FRANNY Budesonide 0.5 mg 09/16/24 21:48 Budesonide Respules 0.5 Mg/2 Ml Ampul.Neb. INHALATION BID.RT FRANNY Furosemide 40 mg 09/16/24 22:00 09/17/24 09:01 Furosemide 40 Mg Tablet PO 40 mg BID FRANNY Administration Protocol Gabapentin 300 mg 09/16/24 22:00 09/17/24 09:00 Gabapentin 300 Mg Capsule PO 300 mg BID FRANNY Administration Guaifenesin 20 ml 09/16/24 21:48 Guaifenesin 10 Ml Udc (200mg/10ml) PO Q4H PRN PRN COUGH Hydralazine HCl 10 mg 09/16/24 21:48 Hydralazine 20 Mg/Ml Vial IV Q4H PRN PRN SBP > 180 Protocol Sodium Chloride 250 mls @ 15 mls/hr 09/16/24 22:07 IV .[id number] PRN Saline Flush Sodium Chloride 250 mls @ 15 mls/hr 09/16/24 22:07 IV .[id number] PRN Additional IVPB Infusion Levothyroxine Sodium 50 mcg 09/17/24 06:00 09/17/24 01:21 Levothyroxine 50 Mcg Tablet PO Not Given DAILY@0600 [facility] Losartan Potassium 50 mg 09/17/24 10:00 09/17/24 09:00 Losartan Potassium 50 Mg Tablet PO 50 mg DAILY FRANNY Administration Protocol Melatonin 3 mg 09/16/24 21:48 Melatonin 3 Mg Tablet PO QHS PRN PRN INSOMNIA Nitroglycerin 0.4 mg 09/17/24 00:10 Nitroglycerin (Inpatient Use) 0.4 Mg Tab.Subl SL Q5M PRN CARDIAC/CHEST PAIN Ondansetron HCl 4 mg 09/16/24 21:48 Ondansetron 4 Mg/2 Ml Vial IV Q8H PRN PRN NAUSEA/VOMITING Paroxetine HCl 40 mg 09/17/24 10:00 09/17/24 09:00 Paroxetine 20 Mg Tablet PO 40 mg DAILY FRANNY Administration Potassium Chloride 20 meq 09/17/24 10:00 09/17/24 09:00 Potassium Chloride Oral Tablet 20 Meq PO 20 meq DAILY FRANNY Administration Senna/Docusate Sodium 2 tablet 09/16/24 21:48 Senna/Docusate Sodium 1 Tablet PO BID PRN PRN Constipation Sodium Chloride 10 - 40 ml 09/16/24 22:07 0.9% Saline Lock 10 Ml Syringe IV UD PRN SALINE FLUSH Spironolactone 25 mg 09/17/24 10:00 09/17/24 09:01 Spironolactone 25 Mg Tablet PO 25 mg DAILY [facility] Administration Protocol Warfarin Sodium 5 mg 09/17/24 17:00 Warfarin 5 Mg Tablet PO 1700 [facility]
--- NOTE | 2024-09-17 13:16 | CASEMGMT ---
Social Work SW spoke w/pt, he states he hasn't been able to reach his son, wants his son to come to the hospital. SW called son Gigi, let him know that pt is asking when he will be coming to visit. Gigi states he has a couple of errands to run and then will be here. SW let pt know. CARI Millan
--- NOTE | 2024-09-17 15:00 | CT_ITS ---
PROCEDURE: CTA HEAD AND NECK W/ CONTRAST 09/17/2024 REASON FOR EXAM: SUSPECTED STROKE WORK UP TECHNIQUE: CTA HEAD AND NECK W/ CONTRAST Multiplanar Sagittal and Coronal images were obtained. CONTRAST: Isovue 370 VOLUME: 88 mL One or more dose reduction techniques were used (e.g., Automated exposure control, adjustment of the mA and/or kV according to patient size, use of iterative reconstruction technique). RADIATION DOSE SUMMARY: CTDlvol: 19.44 mGy DLP: 5061.29 mGycm COMPARISON: None. FINDINGS: Aortic Arch: Normal size and branching pattern. No significant atherosclerotic plaque. Brachiocephalic and Subclavians: Unremarkable RIGHT Carotid: Right CCA: Unremarkable Right ICA: Unremarkable Right ECA: Unremarkable LEFT Carotid: Left CCA: Unremarkable Left ICA: Unremarkable Left ECA: Unremarkable. Vertebrals: Patent RIGHT Vertebral: Patent LEFT Vertebral: Patent Anatomy: [place] of [place] anatomy is normal. Aneurysm or avm: No intracranial aneurysms or large vascular malformations are identified. Anterior cerebral arteries: Unremarkable: Middle cerebral arteries: Unremarkable. Basilar artery: Unremarkable. Posterior cerebral arteries: Unremarkable. Other major branches of the posterior circulation: Unremarkable. Major venous structures: Unremarkable. Other findings: Neck: No lymphadenopathy. Lungs: Lung apices are clear. Bones: Bones are unremarkable. CT/CTA Head AND Neck W/ Contrast IMPRESSION: No significant stenosis in the head and neck. No dissection. No aneurysm. Reading Location: [facility]
--- NOTE | 2024-09-17 15:09 | CASEMGMT ---
YOUSSEF Pt currently not able to comprehend YOUSSEF form. Unable to reach pts son so call was placed to caregiver, Hui. YOUSSEF form and its content were verbally explained to Hui. Questions were answered to the best of my ability.? Hui voiced understanding and signed YOUSSEF form.? Patient provided a copy of signed YOUSSEF form and original placed in patient's chart.? Patient had no further questions. Ambika Bryson, Discharge Planning Ass
--- NOTE | 2024-09-17 15:25 | CASEMGMT ---
Social Work As per pt's sales support administrator Hui, pt may need rehab in a facility, she spoke w/the d/c vp strategic planning earlier and had told her this. SW did create in [facility] a list of [facility] facilities in network w/pt's insurance, in pt's preferred geographic area and complete w/quality and resource use data. SW called pt's son Gigi to discuss pt going somewhere for rehab. He is agreeable to pt going somewhere for rehab. He asked about TCU, states his works here in [employer] and had told him about TCU. SW explained that there is a referral process, and if TCU takes pt they will also need to get an insurance authorization. SW explained the SW tomorrow can follow up w/him. SW explained does have a list of other facilities if TCU is not a possibility. Son states understanding. SW will make referral to TCU when appropriate. SW will continue to follow. CARI Millan
--- NOTE | 2024-09-17 16:23 | NURSING ---
Attempted to call Patient's son, Gigi, multiple times and left a voicemail trying to obtain information about the MRI screening. Patient's son's phone goes straight to voicemail.
[2024-09-17] MEDS: 0.9% Normal Saline (1000mL) 1,000 ML 75 ML IV (16:35)
[2024-09-17] MEDS: 0.9% Saline Lock 10 ML Syringe IV ×2 (17:47→21:05)
[2024-09-17] MEDS: MELATONIN 3 MG TABLET PO (21:20)
[2024-09-18] VITALS (8 sets, daily range): BP systolic 107–127; BP diastolic 60–70; PULSE 70–96; RESP 16–18; TEMP 36.4–36.7; O2SAT 94–99; BMI 28.2; BMI 28.8
[2024-09-18 07:16] LABS: Hematocrit 41.9 % (40-54); Hemoglobin 13.0 g/dL (13.0-16.5); Immature Granulocytes Count 0.180 X10^3/uL (0.0-0.0); Mean Corp Hgb Conc 31.0 g/dL (32-36); Mean Corpuscular Volume 97.7 fL (80-94); Mean Platelet Vol. 9.1 fl (6.2-12.0); NRBC Flagged by Analyzer 0 % (0-5); Platelet Count 171 K/mm3 (150-450); RBC Distribution Width CV 13.6 % (11.6-14.6); RBC Distribution Width SD 49.2 fl (35.1-43.9); Red Blood Count 4.29 M/mm3 (4.6-6.2); White Blood Count 11.2 K/mm3 (4.4-11.0)
[2024-09-18 08:02] LABS: Anion Gap 9 (5-15); BUN 25 mg/dL (4-19); BUN/Creat Ratio 30.5 RATIO (10-20); Calcium,Total 8.7 mg/dL (7.6-11.0); Carbon Dioxide 29.9 mmol/L (21.0-32.0); Chloride 98 mmol/L (98-108); Cholesterol 99 mg/dL (<=200); Estimated Creatinine Clearance 76.05 ml/min (50-250); Glucose 107 mg/dL (70-99); Low Density Lipoprotein Calc. 51 mg/dL; Potassium 4.1 mmol/L (3.3-5.1); Triglycerides 89 mg/dL; Very Low Density Lipoprotein 18 mg/dL (5-40); cholesterol:hdl ratio screen 3.19
--- NOTE | 2024-09-18 08:17 | PN.HOSP_ITS ---
Reason for Visit Chief Complaint: Confusion Objective Data Objective Data Vital Signs: Vital Signs Temp Pulse Resp BP Pulse Ox O2 Del Method O2 Flow Rate 97.8 F 88 16 122/66 H 94 Nasal Cannula 3 09/18/24 05:41 09/18/24 05:41 09/18/24 05:41 09/18/24 05:41 09/18/24 07:55 09/18/24 07:55 09/18/24 07:55 Oxygen Flow Rate (L/min) 3 Oxygen Delivery Method Nasal Cannula Weight: 205 lb 14.588 oz Body Mass Index (BMI) 28.8 Intake & Output: Intake and Output for Last 24 Hours 09/16/24 09/17/24 09/18/24 23:59 23:59 23:59 Intake Total 347.5 / 347.5 121.25 / 121.25 Output Total 950 / 1250 550 / 550 Balance 347.5 / 347.5 -828.75 / -1128.75 -550 / -550 Lab / Micro Data 09/18/24 06:58 09/18/24 06:58 Labs: Laboratory Results - last 24 hr 09/18/24 06:58: WBC 11.2 H, RBC 4.29 L, Hgb 13.0, Hct 41.9, MCV 97.7 H, MCH 30.3, MCHC 31.0 L, RDW Std Deviation 49.2 H, RDW Coeff of Erica 13.6, Plt Count 171, MPV 9.1, Immature Gran % (Auto) 1.600 H, Neut % (Auto) 80.5 H, Lymph % (Auto) 7.0 L, [place] % (Auto) 5.8, Eos % (Auto) 4.7, Baso % (Auto) 0.4, Absolute Neuts (auto) 9.0 H, Absolute Lymphs (auto) 0.78 L, Nucleated RBC % 0, Sodium 137, Potassium 4.1, Chloride 98, Carbon Dioxide 29.9, Anion Gap 9, BUN 25 H, Creatinine 0.83, Estim Creat Clear Calc 76.05, Est GFR (MDRD) Non-Af 86, B UN/Creatinine Ratio 30.5 H, Glucose 107 H, Hemoglobin A1c 5.7, Calcium 8.7, Triglycerides 89, Cholesterol 99, LDL Cholesterol, Calc 51, VLDL Cholesterol 18, HDL Cholesterol 31 L, Cholesterol/HDL Ratio 3.19, TSH 1.410 Radiography Diagnostic Testing: Radiology Impression Brain MRI 09/17/24 10:45 IMPRESSION: No acute intracranial abnormality. Reading Location: [id number] Head/Neck CTA 09/17/24 15:00 IMPRESSION: No significant stenosis in the head and neck. No dissection. No aneurysm. Reading Location: [facility] Physical Exam Narrative Seen and examined Patient is hard of hearing using hearing aid . He told he is a [place] 86 and month October. Physical exam General: Awake, anxious, disoriented to time. Oriented to person and place. HEENT: Atraumatic, PERRLA, EOMI, Normocephalic. Oral: No Gingival or Mucosal Lesions/ Ulcerations Neck: Supple, No JVD, Negative Carotid Bruits Chest wall/Lungs: Air entry diminished in bilateral lung bases. No crepitation/rhonchi Cardiovascular: Irregular rhythm, A-fib, No M/G/R Abdomen: Bowel Sounds Present, Soft, Non Tender, Non-Distended : No dysuria. No renal angle tenderness. No suprapubic tenderness. Extremities: No edema, Capillary Refill Less than 3 Seconds Skin: No rashes, No breakdown Musculoskeletal: No Tenderness to Palpation of Joints or Extremities Neurological: Cranial nerves II-XII grossly intact, DTR 2+/4. No acute focal neurological deficit. Psych/Mental Status: Flat affect, anxious. Assessment & Plan Assessment/Plan (1) Altered mental status: (2) Leukocytosis: PLAN: Plan The patient is 83-year-old gentleman being admitted for confusion, talking irrelevant. As per EMS patient was been talking to family members, hallucination/delusion. He stated he felt a lot of anxiety. Patient was discharged with recent aspiration pneumonia and completed antibiotic Augmentin #1. Altered mental status/delusions/hallucination, talking irrelevant: Exact etiology unclear. MRI is ordered. CT head does not show acute intracranial abnormality. Procalcitonin normal. ABG 7.4 1/63/120/40.2. Total bicarb 42. BMP bicarb is 35.6. High discrepancy more than 5. 8/12: Seen by neurologist. She noticed some right arm weakness and possible left ataxia which was concern for possible multiple vascular territory stroke, or delirium #2. Chronic HFpEF with recent Acute HFpEF Exacerbation: Chest x-ray no acute finding. INR 3.1 increased to 3.4. Continue INR. Continue statin therapy, atenolol, spironolactone, Lasix regimen. IV fluid in ED discontinued most recent echocardiogram during recent admission 09/10/2024 with normal LV size, LV systolic function lower limits of normal, EF 53%, mild focal MV calcification, bileaflet, PASP 40 mmHg. #3. Recent aspiration pneumonia: On oral Augmentin. Speech therapy consulted. Aspiration precaution. Continue diet adjustment with nectar thickened liquids. #4. PAF: INR supratherapeutic on atenolol. Heart rate 106. #5. CAD: Status post previous CABG x 2 and PCI noted of the distal left main and then the circumflex artery, also saphenous vein graft to the obtuse marginal branch and ECHEVARRIA to the LAD previously noted to be patent with an occluded right coronary artery and pleb-sv-xneod collaterals evident. Continue baby aspirin, statin therapy, atenolol, not on ISSAC inhibitor/ARB, unclear reason. Losartan 50 mg started #6. Chronic COPD with chronic hypoxic respiratory failure: on 3 L NC home oxygen supplementation, temporarily hold home inhaler and transition interim to ATC budesonide therapy given PAF with RVR recent presentation concurrently, PRN albuterol, HOB, IS parameters. #7. Hypertension: Continue home regimen including spironolactone, Lasix, atenolol with hold parameters as needed, PRN hydralazine. #8. Hyperlipidemia: continue patient home statin therapy. #9. Hypothyroidism: continue patient on levothyroxine regimen, TSH requested. #10. Chronic neuropathy: continue patient on gabapentin regimen, low threshold to hold for sedation. #11. History of CVA: Patient with history of previous strokes including left brainstem stroke, will continue to baby aspirin, Coumadin with INR trending, statin therapy, hypertensive regimen as noted. #12. Chronic Kidney Disease Stage II: Admission BUN/Cr 24/0.1, GFR 87, baseline renal function 0.6-0.9, repeat BMP in AM. #13. Anxiety and depression, panic attacks: Will continue patient on paroxetine regimen. Administered low-dose IV Ativan in the ED however patient following as expected is somnolent thus will avoid further administration if able. #14. Obesity: Weight loss and lifestyle changes encouraged. #15. DVT prophylaxis: Will continue Coumadin with INR trending, 3.1 upon admission. #16. CODE status: Full Code. Laboratory Results 09/16/24 18:25: WBC 18.0 H, RBC 4.62, Hgb 13.9, Hct 44.0, MCV 95.2 H, MCH 30.1, MCHC 31.6 L, RDW Std Deviation 46.3 H, RDW Coeff of Erica 13.2, Plt Count 201, MPV 9.1, Immature Gran % (Auto) 1.800 H, Neut % (Auto) 85.4 H, Lymph % (Auto) 4.6 L, [place] % (Auto) 4.1, Eos % (Auto) 3.7, Baso % (Auto) 0.4, Absolute Neuts (auto) 15.3 H, Absolute Lymphs (auto) 0.83, Nucleated RBC % 0, PT 32.4 H, INR 3.1, Sodium 138, Potassium 4.6, Chloride 93 L, Carbon Dioxide 35.6 H, Anion Gap 9, B UN 24 H, Creatinine 0.81, Estim Creat Clear Calc 80.91, Est GFR (MDRD) Non-Af 87, BUN/Creatinine Ratio 29.2 H, Glucose 112 H, Calcium 9.3, Magnesium 2.3 H, Procalcitonin 0.09 09/16/24 19:38: Urine Color Yellow, Urine Clarity Clear, Urine pH 7.0, Ur Specific Randolph 1.010, Urine Protein 30 H, Urine Glucose (UA) Normal, Urine Ketones Negative, Urine Occult Blood 250 H, Urine Nitrite Negative, Urine Bilirubin Negative, Urine Urobilinogen 4 H, Ur Leukocyte Esterase 25 H, Urine RBC 5-10 SEEN, Urine WBC 0-5 SEEN, Ur Squamous Epith Cells 0-5 SEEN, Urine Bacteria 1+, Hyaline Casts 10-25 SEEN, Urine Mucus 0 SEEN 09/16/24 22:15: Ammonia 31.9, Troponin T High Sens 12 D 09/16/24 22:52: Specimen Type ART, Sample Site R Radial, pH 7.41, Bicarbonate Actual 40.2 H, Total CO2 42, Base Excess 16 H, O2 Saturation 99, O2 % 3.0, ABG pCO2 63.2 H, ABG pO2 120 H, Blas Test Positive, O2 Delivery Device Cannula, Vent Mode Not entered 09/17/24 00:25: Troponin T Hi Sens 2 Hr 13 09/17/24 01:53: WBC 16.9 H, RBC 4.50 L, Hgb 13.5, Hct 42.9, MCV 95.3 H, MCH 30.0, MCHC 31.5 L, RDW Std Deviation 46.6 H, RDW Coeff of Erica 13.2, Plt Count 177, MPV 9.1, Immature Gran % (Auto) 1.700 H, Neut % (Auto) 85.0 H, Lymph % (Auto) 4.6 L, [place] % (Auto) 4.8, Eos % (Auto) 3.5, Baso % (Auto) 0.4, Absolute Neuts (auto) 14.3 H, Absolute Lymphs (auto) 0.78 L, Nucleated RBC % 0, PT 35.1 H , INR 3.4, Sodium 138, Potassium 4.4, Chloride 93 L, Carbon Dioxide 33.0 H, Anion Gap 11, BUN 25 H, Creatinine 0.77, Estim Creat Clear Calc 78.17, Est GFR (MDRD) Non-Af 88, BUN/Creatinine Ratio 31.7 H, Glucose 106 H, Calcium 9.2, Total Bilirubin 0.75, AST 21, ALT 26, Alkaline Phosphatase 131 H, Troponin T Hi Sens 4Hr 14, Total Protein 6.7, Albumin 3.6, Globulin 3.1, Albumin/Globulin Ratio 1.2, TSH 2.330 NIHSS NIHSS Nursing Documentation NIHSS Nursing Documentation: NIHSS: Ischemic Stroke/TIA Start: 09/17/24 15:57 Text: For PCU Patients: NIH and Neuro Check every 4 Status: Complete hours, PRN and with change in RN caregiver. Freq: [id number] Protocol: Activity Type Activity Date Activity User E-sign Co-sign Detail Recorded Client Recorded Date Recorded By Document 09/18/24 00:00 MATTEO [id number] 09/18/24 00:07 MATTEO 09/18/24 00:00 NIH Stroke Scale [NIHSS] A score of 0 is normal or asymptomatic . Total possible score is 42. Inpatient: RN or Physician to activate a stroke alert for onset of new stroke symptoms or with NIHSS increase >/= 3 points. Following change in neurological status, NIHSS will be performed per physician order or more frequently PRN. -1a. Level of Consciousness 0 - Alert; keenly responsive -1b. LOC Questions 0 - Answers BOTH questions correctly -1c. LOC Commands 0 - Performs BOTH tasks correctly -2. Best Gaze 0 - Normal -3. Visual 0 - No visual loss -4. Facial Palsy 1 - Minor paralysis ( flattened nasolabial fold , asymmetry on smiling) -5a. Left Arm 0 - No drift; arm holds 90 ( or 45) degrees for full 10 seconds -5b. Right Arm 0 - No drift; arm holds 90 ( or 45) degrees for full 10 seconds -6a. Left Leg 0 - No drift; leg holds 30- degree position for full 5 seconds -6b. Right Leg 0 - No drift; leg holds 30- degree position for full 5 seconds -7. Limb Ataxia 0 - Absent -8. Sensory 0 - Normal; no sensory loss -9. Best Language 0 - No aphasia; normal -10. Dysarthria 1 = Mild-to- moderate dysarthria; -11. Extinction and Inattention 0 - No abnormality -Total 2 Query Text:A score of 0 is normal or asymptomatic. Total possible score is 42 . ED: Notify Physician for NIHSS increase by > / = 3 points. Inpatient: RN or Physician to activate a stroke alert for NIHSS increase of > / = 3 points. Coma Scale [Assess] -Eye Opening Spontaneous -Motor Obeys Commands -Verbal Oriented [Total] -Coma Scale Total 15
--- NOTE | 2024-09-18 09:00 | CASEMGMT ---
Social Work Spoke with Cathy in admissions for [facility]. Patient is declined for admission. Plan: Follow up with patient/family on next choices for SNF. -CICI Li
[2024-09-18 09:01] LABS: Prothrombin Time (Protime)PT. 30.3 SECONDS (11.7-14.9)
--- NOTE | 2024-09-18 09:51 | CASEMGMT ---
Discharge Planning TCU has declined. left for pts son (Gigi) with this information and request for call back to best facilitate delivery of snf list to him. Ambika Bryson DC Planning Asst.
[2024-09-18] MEDS: Potassium Chloride Oral Tablet 20 MEQ PO (11:20)
[2024-09-18] MEDS: Senna/Docusate Sodium 1 Tablet 2 TABLET PO ×2 (11:21→21:40)
--- NOTE | 2024-09-18 17:07 | PN.NEURO_ITS ---
Assessment and Plan: Neuro Assessment/Plan ARTURO LUNA is a 83 M with a past medical history of Obesity, HTN, HLD, CAD s/p CABG x 2 and PCI, HFpEF, Hypothyroidism, Chronic neuropathy, CKD stage II, being evaluated by Teleneurology for confusion of unclear etiology. History is limited as unable to get additional information from the person he lives with. Exam is significant for intattention predominently but appears to have some R arm weakness and some possible L leg ataxia which is odd but localizes to possible multiple vascular territories. At this time most concerning ddx is stroke (although INR supratherapeutic) vs delirium from an unclear metabolic/infectious source (white count elevated, potentially still struggling to get over PNA). Today seems better but no family available to confirm. If patient is better, the transient event may be related to seizure or other delirium phenomenon. If patient is not returned to normal, would evaluate for additional inflammatory or infectious causes of symptoms Plan: - if Patient returned to baseline, no further workup at this time - if patient NOT returned to baseline, recommend MRI Brain with contrast and LP with cell count, glucose, protein, meningitis/encephalitis panel I personally attended this patient and spent a total time of 45minutes evaluating this patient including clinical assessment, review of chart, medical history imaging, and determining appropriate treatment and workup. Subject: Neurology Subjective Pt states he feels improved, states he came into the hospital because he had anxiety and didn't feel have any pills for it. Says he feels back to himself now Neurologic Exam: ? NEURO: -? Mental Status: The patient was alert but poorly oriented to time, place, and person. Unsure why in hospital, states it is every day of the week and thinks it was April. Poor attention -? Language: speech is intact.? Naming, repetition, fluency, and comprehension intact. -? Cranial Nerves: PERRL 3mm/brisk. EOMI, visual bailey full, no facial asymmetry, facial sensation intact, hearing intact, tongue midline, no evidence of atrophy or fibrillations. -? Motor: b/l UE and LE antigravity without drift -? Sensation- Intact to light touch bilaterally -? Coordination: No dysmetria on [id number], LLE ataxia -? Gait- deferred EEG Results Procedure Details EEG Procedure Details: ARTURO LUNA is a 83 year old M with a past medical history of , who presents for evaluation of Electroencephalogram on DATE at TIME Objective Data Objective Data Vital Signs: Vital Signs Temp Pulse Resp BP Pulse Ox O2 Del Method O2 Flow Rate 98.1 F 96 16 107/70 96 Nasal Cannula 3 09/18/24 16:00 09/18/24 16:00 09/18/24 16:00 09/18/24 16:00 09/18/24 16:00 09/18/24 16:00 09/18/24 16:00 Oxygen Flow Rate (L/min) 3 Oxygen Delivery Method Nasal Cannula Weight: 93.4 kg Body Mass Index (BMI) 28.8 Intake & Output: Intake and Output for Last 24 Hours 09/16/24 09/17/24 09/18/24 23:59 23:59 23:59 Intake Total 347.5 / 347.5 121.25 / 121.25 878.75 / 878.75 Output Total 950 / 1250 550 / 550 Balance 347.5 / 347.5 -828.75 / -1128.75 328.75 / 328.75 Lab / Micro Data 09/18/24 06:58 09/18/24 06:58 Labs: Laboratory Results - last 24 hr 09/18/24 06:58: WBC 11.2 H, RBC 4.29 L, Hgb 13.0, Hct 41.9, MCV 97.7 H, MCH 30.3, MCHC 31.0 L, RDW Std Deviation 49.2 H, RDW Coeff of Erica 13.6, Plt Count 171, MPV 9.1, Immature Gran % (Auto) 1.600 H, Neut % (Auto) 80.5 H, Lymph % (Auto) 7.0 L, [place] % (Auto) 5.8, Eos % (Auto) 4.7, Baso % (Auto) 0.4, Absolute Neuts (auto) 9.0 H, Absolute Lymphs (auto) 0.78 L, Nucleated RBC % 0, PT 30.3 H, INR 2.8, Sodium 137, Potassium 4.1, Chloride 98, Carbon Dioxide 29.9, Anion Gap 9, BUN 25 H, Creatinine 0.83, Estim Creat Clear Calc 76.05, Est GFR (MDRD) Non- Af 86, BUN/Creatinine Ratio 30.5 H, Glucose 107 H, Hemoglobin A1c 5.7, Calcium 8.7, Triglycerides 89, Cholesterol 99, LDL Cholesterol, Calc 51, VLDL Cholesterol 18, HDL Cholesterol 31 L, Cholesterol/HDL Ratio 3.19, TSH 1.410 Radiography Diagnostic Testing: Radiology Impression Brain MRI 09/17/24 10:45 IMPRESSION: No acute intracranial abnormality. Reading Location: [id number] NIHSS NIHSS Nursing Documentation NIHSS Nursing Documentation: NIHSS: Ischemic Stroke/TIA Start: 09/17/24 15:57 Text: For PCU Patients: NIH and Neuro Check every 4 Status: Complete hours, PRN and with change in RN caregiver. Freq: [id number] Protocol: Activity Type Activity Date Activity User E-sign Co-sign Detail Recorded Client Recorded Date Recorded By Document 09/18/24 00:00 RalfG [id number] 09/18/24 00:07 JG 09/18/24 00:00 NIH Stroke Scale [NIHSS] A score of 0 is normal or asymptomatic . Total possible score is 42. Inpatient: RN or Physician to activate a stroke alert for onset of new stroke symptoms or with NIHSS increase >/= 3 points. Following change in neurological status, NIHSS will be performed per physician order or more frequently PRN. -1a. Level of Consciousness 0 - Alert; keenly responsive -1b. LOC Questions 0 - Answers BOTH questions correctly -1c. LOC Commands 0 - Performs BOTH tasks correctly -2. Best Gaze 0 - Normal -3. Visual 0 - No visual loss -4. Facial Palsy 1 - Minor paralysis ( flattened nasolabial fold , asymmetry on smiling) -5a. Left Arm 0 - No drift; arm holds 90 ( or 45) degrees for full 10 seconds -5b. Right Arm 0 - No drift; arm holds 90 ( or 45) degrees for full 10 seconds -6a. Left Leg 0 - No drift; leg holds 30- degree position for full 5 seconds -6b. Right Leg 0 - No drift; leg holds 30- degree position for full 5 seconds -7. Limb Ataxia 0 - Absent -8. Sensory 0 - Normal; no sensory loss -9. Best Language 0 - No aphasia; normal -10. Dysarthria 1 = Mild-to- moderate dysarthria; -11. Extinction and Inattention 0 - No abnormality -Total 2 Query Text:A score of 0 is normal or asymptomatic. Total possible score is 42 . ED: Notify Physician for NIHSS increase by > / = 3 points. Inpatient: RN or Physician to activate a stroke alert for NIHSS increase of > / = 3 points. Coma Scale [Assess] -Eye Opening Spontaneous -Motor Obeys Commands -Verbal Oriented [Total] -Coma Scale Total 15
--- NOTE | 2024-09-18 20:01 | CASEMGMT ---
Social Work Spoke with Cathy in admissions for the hospital transitional care unit, for potential reconsideration. Patient could be reevaluated on 09/19/2024 however the transitional care unit has no availability until at least 09/21/2024. Called patient's son Gigi at [phone]. Updated to the transitional care unit as well as verbally reviewed patient choice list. [facility], but after further discussion the patient's son expressed that if patient cannot go to the hospital transitional care unit would support patient returning home with outpatient therapy. This information writer explored reports this information writer had received from the mortgage manager, that patient's caregiver had called in on 09/17/2024 indicating concerned about being able to care for the patient. Patient's son indicates that if the caregiver, Hui, is unable to meet patient's needs the patient's son is willing to assist where needed. Son expresses desire to support the patient's wish to return home. Met with patient in room, introducing to self and social work role. Patient adamantly refuses to consider a half-way facility and would like to return home. Patient reports would be amenable with either home therapy or outpatient therapy, though after some discussion agreed to try the outpatient therapy. Patient reports to have all necessary medical equipment at home including home oxygen. Called patient's caregiver, Hui, to update. Hui verbally agreed with plan for patient to return home and voiced no ambivalence about this plan. Hui reports to have the patient set up with outpatient physical therapy at [facility] from patient's last admission to [facility]. Spoke with physician who indicates anticipated discharge on 09/19/2024. Called patient's son back and updated, that patient will need oxygen tank brought to the hospital when patient is discharged. Son asked about a time, which this information writer indicated will be determined tomorrow after the physician rounds, and likely not before 10 AM. Plan: Return home with family and caregiver assists, with plan for outpatient therapy at [facility]. -CARI Li, PROGRAM CONSULTANT *This note was generated with [employer] software. It may contain incorrect words, spelling, and punctuation that were not noted in review of the chart prior to signing*
[2024-09-18] MEDS: MELATONIN 3 MG TABLET PO (21:39)
[2024-09-18] MEDS: 0.9% Saline Lock 10 ML Syringe IV (21:40)
[2024-09-19 02:41] VITALS: BMI 28.8
[2024-09-19 03:23] VITALS: BMI 28.3
[2024-09-19 03:39] VITALS: BP 119/64; PULSE 91; RESP 18; TEMP 36.6; O2SAT 96
[2024-09-19 05:44] LABS: Hematocrit 39.4 % (40-54); Hemoglobin 12.3 g/dL (13.0-16.5); Immature Granulocytes Count 0.140 X10^3/uL (0.0-0.0); Mean Corp Hgb Conc 31.2 g/dL (32-36); Mean Corpuscular Volume 96.8 fL (80-94); Mean Platelet Vol. 9.6 fl (6.2-12.0); NRBC Flagged by Analyzer 0 % (0-5); Platelet Count 171 K/mm3 (150-450); RBC Distribution Width CV 13.4 % (11.6-14.6); RBC Distribution Width SD 48.2 fl (35.1-43.9); Red Blood Count 4.07 M/mm3 (4.6-6.2); White Blood Count 10.3 K/mm3 (4.4-11.0)
[2024-09-19 06:00] LABS: Prothrombin Time (Protime)PT. 24.4 SECONDS (11.7-14.9)
[2024-09-19 06:23] LABS: Anion Gap 10 (5-15); BUN 24 mg/dL (4-19); BUN/Creat Ratio 32.3 RATIO (10-20); Calcium,Total 8.7 mg/dL (7.6-11.0); Carbon Dioxide 30.4 mmol/L (21.0-32.0); Chloride 98 mmol/L (98-108); Estimated Creatinine Clearance 78.36 ml/min (50-250); Glucose 93 mg/dL (70-99); Potassium 3.9 mmol/L (3.3-5.1)
[2024-09-19 06:40] VITALS: O2SAT 93
[2024-09-19 07:59] LABS: Magnesium 2.5 mg/dL (1.5-2.2)
--- NOTE | 2024-09-19 08:57 | DCINST_ITS ---
Discharge Instructions DC O2, CPAP, BIPAP needs Home O2 Discharge instructions: Yes Type of respiratory needs?: Oxygen Oxygen frequency: Continuous Continuous oxygen liters per minute: 3 Dressing / Incision Discharge Activity: Return to Normal Activity Weight Bearing Status: Weight bearing as tolerated Dressing / Incision Call your doctor if you observe: Fever of 101 or Higher, Coldness, Increased Arnie n, Numbness or Tingling, Change in Color, Inability to urinate, Inability to have a bowel movement, Shortness of breath, Dizziness, Fainting spells, Swelling in the ankles, Chest pain, Prolonged hiccupping, Increased palpitations (irregular heartbeat) and Calf discomfort Follow Up Care When: IN 2 WEEKS Test Results: Test results from this visit will be discussed in further detail at your follow- up appointment, if applicable. Discharge Plan Admission Admit Date/Time: 09/16/24 21:19 Primary Reason for Your Visit: Delirium, altered mental status Attending Provider: Trevor Burton Primary Care Provider: Shayne Moncada Consulting Providers: Olivia Walters; Judit Rock; Trixie Jeronimo; Aminata Espinoza; Darius Tapia; German Perera; Luis Antonio Suarez; KEVIN TALAVERA; Aga Servin; Susana Gonzales; Stan Mays; Sweetie Rowe; Maikel Morocho; Nerissa Lebron; Denise Aparicio; Nato Rivera; Eden Matthew; Jake Espinoza; Samson Richard; Ernesto Reeves; John Calhoun; Philippe Syed; Eulogio Mitchell; Selam Monique; Tevin Shin; Karma Cabrera; Gonzalo Goyal Discharge Orders/Prescriptions Prescriptions: New losartan 50 mg Tablet 25 mg PO DAILY Qty: 30 0RF buspirone 10 mg tablet 10 mg PO BID 30 Days Qty: 60 0RF hydroxyzine HCl 25 mg tablet 25 mg PO TID PRN (Reason: anxiety) Qty: 20 0RF Continued levothyroxine 50 MCG tablet 50 mcg PO DAILY atorvastatin 40 MG tablet 40 mg PO QHS spironolactone 25 MG tablet 25 mg PO DAILY aspirin 81 MG tablet,chewable 81 mg PO DAILY@0800 albuterol sulfate [Ventolin HFA] 90 mcg/actuation HFA aerosol inhaler 2 puff inhalation Q4H PRN PRN (Reason: Wheezing) Qty: 1 0RF fluticasone propion-salmeterol 250-50 mcg/dose blister with device 1 inh inhalation Q12H nitroglycerin 0.3 mg tablet, sublingual 0.3 mg sublingual Q5M PRN (Reason: chest pain) gabapentin 300 mg capsule 300 mg PO BID paroxetine HCl 40 mg tablet 40 mg PO DAILY warfarin [Jantoven] 2.5 mg Tablet 5 mg PO 1700 Qty: 60 0RF atenolol 50 mg Tablet 50 mg PO DAILY Qty: 30 0RF furosemide [Lasix] 40 mg tablet 40 mg PO BID Qty: 60 0RF Discontinued potassium chloride 10 mEq tablet extended release 20 meq PO DAILY Patient Comments: TAKE 2 TABLETS BY MOUTH ONCE DAILY WITH BREAKFAST amoxicillin-pot clavulanate 875-125 mg Tablet 1 tab PO BIDCM Qty: 11 0RF Rx Instructions: Take with food Referrals / Follow Up: Shayne Moncada MD [Primary Care Provider] - 09/25/24 11:00 am Milton Fagan MD [Non-Staff -Ordering Privileges] - Within 1 Month (lower ext neuropathy) Disposition Disposition (needs filled in before D/C Order can be placed): Home, Self Care
[2024-09-19] MEDS: Senna/Docusate Sodium 1 Tablet 2 TABLET PO (09:00)
[2024-09-19] MEDS: Potassium Chloride Oral Tablet 20 MEQ PO (09:00)
[2024-09-19 09:21] VITALS: BP 108/62; PULSE 103; RESP 16; TEMP 36.9; O2SAT 98
--- NOTE | 2024-09-19 09:41 | PCM.DC.SUM ---
Providers Date of Admission: 09/16/24 Date of Discharge: 09/19/24 Primary Care Physician: Dr. Shayne Moncada MD Consultations 09/17/24 10:45 neuro [Consult: Tele-Neurology] Routine Consulting Provider: [facility] Reason for Consult: acute encephalopathy EMERGENT Consult: No MD Notified: Yes Date Notified: 09/17/24 Time Notified: 11:27 Method of Notification: Answering Service Nursing Unit Staff Notify [facility] of Tele-Neurology Consult: Yes Reason For Visit: ENCEPHALOPATHY Diagnosis Discharge Diagnosis (1) Altered mental status: Status: Acute Code(s): R41.82 - Altered mental status, unspecified (2) Leukocytosis: Status: Acute Code(s): D72.829 - Elevated white blood cell count, unspecified Plan The patient is 83-year-old gentleman being admitted for confusion, talking irrelevant. As per EMS patient was been talking to family members, hallucination/delusion. He stated he felt a lot of anxiety. Patient was discharged with recent aspiration pneumonia and completed antibiotic Augmentin #1. Altered mental status/delusions/hallucination, talking irrelevant: Exact etiology unclear. MRI is ordered. CT head does not show acute intracranial abnormality. Procalcitonin normal. ABG 7.4 1/63/120/40.2. Total bicarb 42. BMP bicarb is 35.6. High discrepancy more than 5. 09/18: Seen by neurologist. She noticed some right arm weakness and possible left ataxia which was concern for possible multiple vascular territory stroke, or delirium 09/19: Patient on baseline mental status. Acute Endolucin most likely due to delirium probably from multiple comorbidities including heart failure. #2. Chronic HFpEF with recent Acute HFpEF Exacerbation: Chest x-ray no acute finding. INR 3.1 increased to 3.4. Continue INR. Continue statin therapy, atenolol, spironolactone, Lasix regimen. IV fluid in ED discontinued most recent echocardiogram during recent admission 09/10/2024 with normal LV size, LV systolic function lower limits of normal, EF 53%, mild focal MV calcification, bileaflet, PASP 40 mmHg. 09/18: Patient does not have shortness of breath or chest pain. INR is 2.8. Resume warfarin lower dose 3 mg daily and titrate according to the INR. #3. Recent aspiration pneumonia: On oral Augmentin. Speech therapy consulted. Aspiration precaution. Continue diet adjustment with nectar thickened liquids. 09/19: Patient completed Augmentin. #4. PAF: INR supratherapeutic on atenolol. Heart rate 106. 8/32: INR 2.1. Warfarin was resumed yesterday. Continue warfarin 5 mg daily. #5. CAD: Status post previous CABG x 2 and PCI noted of the distal left main and then the circumflex artery, also saphenous vein graft to the obtuse marginal branch and ECHEVARRIA to the LAD previously noted to be patent with an occluded right coronary artery and [id number] collaterals evident. Continue baby aspirin, statin therapy, atenolol, not on ISSAC inhibitor/ARB, unclear reason. Losartan 50 mg started #6. Chronic COPD with chronic hypoxic respiratory failure: on 3 L NC home oxygen supplementation, temporarily hold home inhaler and transition interim to ATC budesonide therapy given PAF with RVR recent presentation concurrently, PRN albuterol, HOB, IS parameters. #7. Hypertension: Continue home regimen including spironolactone, Lasix, atenolol with hold parameters as needed, PRN hydralazine. #8. Hyperlipidemia: continue patient home statin therapy. #9. Hypothyroidism: continue patient on levothyroxine regimen, TSH normal. #10. Chronic neuropathy: continue patient on gabapentin regimen, low threshold to hold for sedation. 09/19: Advised to follow-up with neurologist. #11. History of CVA: Patient with history of previous strokes including left brainstem stroke, will continue to baby aspirin, Coumadin with INR trending, statin therapy, hypertensive regimen as noted. #12. Chronic Kidney Disease Stage II: Admission BUN/Cr 24/0.1, GFR 87, baseline renal function 0.6-0.9, 09/18: Kidney function 25/0.83 normal. #13. Anxiety and depression, panic attacks: continue patient on paroxetine regimen. Administered low-dose IV Ativan in the ED however patient following as expected is somnolent thus will avoid further administration if able. #14. Obesity: Weight loss and lifestyle changes encouraged. #15. DVT prophylaxis: As mentioned above #16. CODE status: Full Code. PT and OT and physical therapy. Laboratory Results 09/18/24 06:58: WBC 11.2 H, RBC 4.29 L, Hgb 13.0, Hct 41.9, MCV 97.7 H, MCH 30.3, MCHC 31.0 L, RDW Std Deviation 49.2 H, RDW Coeff of Erica 13.6, Plt Count 171, MPV 9.1, Immature Gran % (Auto) 1.600 H, Neut % (Auto) 80.5 H, Lymph % (Auto) 7.0 L, [place] % (Auto) 5.8, Eos % (Auto) 4.7, Baso % (Auto) 0.4, Absolute Neuts (auto) 9.0 H, Absolute Lymphs (auto) 0.78 L, Nucleated RBC % 0, PT 30.3 H, INR 2.8, Sodium 137, Potassium 4.1, Chloride 98, Carbon Dioxide 29.9, Anion Gap 9, BUN 25 H, Creatinine 0.83, Estim Creat Clear Calc 76.05, Est GFR (MDRD) Non-Af 86, BUN/Creatinine Ratio 30.5 H, Glucose 107 H, Hemoglobin A1c 5.7, Calcium 8.7, Triglycerides 89, Cholesterol 99, LDL Cholesterol, Calc 51, VLDL Cholesterol 18, HDL Cholesterol 31 L, Cholesterol/HDL Ratio 3.19, TSH 1.410 Medications at Discharge Home Medications levothyroxine 50 mcg tablet 50 mcg PO DAILY thyroid 07/25/19 atorvastatin 40 mg tablet 40 mg PO QHS cholesterol 07/28/19 spironolactone 25 mg tablet 25 mg PO DAILY diuretic 07/28/19 aspirin 81 mg chewable tablet 81 mg PO DAILY@0800 health 12/14/21 albuterol sulfate 90 mcg/actuation aerosol inhaler (Ventolin HFA) 2 puff inhalation Q4H PRN PRN Wheezing ##1 03/15/23 fluticasone 250 mcg-salmeterol 50 mcg/dose blistr powdr for inhalation 1 inh inhalation Q12H breathing 09/10/24 gabapentin 300 mg capsule 300 mg PO BID nerve pain 09/10/24 nitroglycerin 0.3 mg sublingual tablet 0.3 mg sublingual Q5M PRN chest pain 09/10/24 paroxetine HCl 40 mg tablet 40 mg PO DAILY mental health 09/10/24 atenolol 50 mg tablet 50 mg PO DAILY blood pressure #30 tabs 09/12/24 furosemide 40 mg tablet (Lasix) 40 mg PO BID diuretic #60 tabs 09/12/24 warfarin 2.5 mg tablet (Jantoven) 5 mg (2 x 2.5 mg) PO 1700 blood thinner #60 tabs 09/12/24 buspirone 10 mg tablet 10 mg PO BID 1 month #60 tabs 09/19/24 hydroxyzine HCl 25 mg tablet 25 mg PO TID PRN anxiety #20 tabs 09/19/24 losartan 50 mg tablet 25 mg (1/2 x 50 mg) PO DAILY #30 tabs 09/19/24 Physical Exam Narrative Seen and examined Patient is feeling good. No shortness of breath. He complained of mild neuropathy symptoms. Patient is hard of hearing using hearing aid . Physical exam General: Awake, alert oriented to person and place. Oriented to time. HEENT: Atraumatic, PERRLA, EOMI, Normocephalic. Oral: No Gingival or Mucosal Lesions/ Ulcerations Neck: Supple, No JVD, Negative Carotid Bruits Chest wall/Lungs: Air entry diminished in bilateral lung bases. No crepitation/rhonchi Cardiovascular: Irregular rhythm, A-fib, No M/G/R Abdomen: Bowel Sounds Present, Soft, Non Tender, Non-Distended : No dysuria. No renal angle tenderness. No suprapubic tenderness. Extremities: No edema, Capillary Refill Less than 3 Seconds Skin: No rashes, No breakdown Musculoskeletal: No Tenderness to Palpation of Joints or Extremities Neurological: Cranial nerves II-XII grossly intact, DTR 2+/4. No acute focal neurological deficit. Chronic neuropathy in the feet. Psych/Mental Status: Flat affect, anxious. Weight / BMI Weight Weight: 202 lb 13.204 oz Body Mass Index (BMI) 28.3 ABG / Lab / Microbiology Data 09/19/24 04:45 09/19/24 04:45 Laboratory: Laboratory Results - last 24 hr 09/19/24 04:45: WBC 10.3, RBC 4.07 L, Hgb 12.3 L, Hct 39.4 L, MCV 96.8 H, MCH 30.2, MCHC 31.2 L, RDW Std Deviation 48.2 H, RDW Coeff of Erica 13.4, Plt Count 171, MPV 9.6, Immature Gran % (Auto) 1.400 H, Neut % (Auto) 80.4 H, Lymph % (Auto) 7.5 L, [place] % (Auto) 6.4, Eos % (Auto) 3.9, Baso % (Auto) 0.4, Absolute Neuts (auto) 8.3 H, Absolute Lymphs (auto) 0.77 L, Nucleated RBC % 0, PT 24.4 H, INR 2.1, Sodium 138, Potassium 3.9, Chloride 98, Carbon Dioxide 30.4, Anion Gap 10, BUN 24 H, Creatinine 0.74, Estim Creat Clear Calc 78.36, Est GFR (MDRD) Non-Af 89, BUN/Creatinine Ratio 32.3 H, Glucose 93, Calcium 8.7, Magnesium 2.5 H D/C Instructions Weight Bearing Status: Weight bearing as tolerated Call your doctor if you observe: Fever of 101 or Higher, Coldness, Increased Pain, Numbness or Tingling, Change in Color, Inability to urinate, Inability to have a bowel movement, Shortness of breath, Dizziness, Fainting spells, Swelling in the ankles, Chest pain, Prolonged hiccupping, Increased palpitations (irregular heartbeat) and Calf discomfort DC O2, CPAP, BIPAP Needs Home O2 Discharge instructions: Yes Type of respiratory needs?: Oxygen Oxygen frequency: Continuous Continuous oxygen liters per minute: 3 DC home with Oxygen: Yes Home O2 MD Review: I have reviewed the oxygen testing, and the patient qualifies for home oxygen equipment and portability. The patient is mobile in the home and the community. When: IN 2 WEEKS Meaningful Use Info Meaningful Use Meaningful Use Diagnoses (Choose all that apply): None applicable Discharge Plan Admission Admit Date/Time: 09/16/24 21:19 Primary Reason for Your Visit: Delirium, altered mental status Attending Provider: Trevor Burton Primary Care Provider: Shayne Moncada Consulting Providers: Olivia Walters; Judit Rock; Trixie Jeronimo; Aminata Espinoza; Darius Tapia; German Perera; Luis Antonio Suarez; KEVIN TALAVERA; Aga Servin; Susana Gonzales; Stan Mays; Sweetie Rowe; Maikel Morocho; Nerissa Lebron; Denise Aparicio; Nato Rivera; Eden Matthew; Jake Espinoza; Samson Richard; Ernesto Reeves; John Calhoun; Philippe Syed; Eulogio Mitchell; Selam Monique; Tevin Shin; Karma Cabrera; Gonzalo Goyal Discharge Orders/Prescriptions Prescriptions: New losartan 50 mg Tablet 25 mg PO DAILY Qty: 30 0RF buspirone 10 mg tablet 10 mg PO BID 30 Days Qty: 60 0RF hydroxyzine HCl 25 mg tablet 25 mg PO TID PRN (Reason: anxiety) Qty: 20 0RF Continued levothyroxine 50 MCG tablet 50 mcg PO DAILY atorvastatin 40 MG tablet 40 mg PO QHS spironolactone 25 MG tablet 25 mg PO DAILY aspirin 81 MG tablet,chewable 81 mg PO DAILY@0800 albuterol sulfate [Ventolin HFA] 90 mcg/actuation HFA aerosol inhaler 2 puff inhalation Q4H PRN PRN (Reason: Wheezing) Qty: 1 0RF fluticasone propion-salmeterol 250-50 mcg/dose blister with device 1 inh inhalation Q12H nitroglycerin 0.3 mg tablet, sublingual 0.3 mg sublingual Q5M PRN (Reason: chest pain) gabapentin 300 mg capsule 300 mg PO BID paroxetine HCl 40 mg tablet 40 mg PO DAILY warfarin [Jantoven] 2.5 mg Tablet 5 mg PO 1700 Qty: 60 0RF atenolol 50 mg Tablet 50 mg PO DAILY Qty: 30 0RF furosemide [Lasix] 40 mg tablet 40 mg PO BID Qty: 60 0RF Discontinued potassium chloride 10 mEq tablet extended release 20 meq PO DAILY Patient Comments: TAKE 2 TABLETS BY MOUTH ONCE DAILY WITH BREAKFAST amoxicillin-pot clavulanate 875-125 mg Tablet 1 tab PO BIDCM Qty: 11 0RF Rx Instructions: Take with food Referrals / Follow Up: Shayne Moncada MD [Primary Care Provider] - 09/25/24 11:00 am Milton Fagan MD [Non-Staff -Ordering Privileges] - Within 1 Month (lower ext neuropathy) Disposition Disposition (needs filled in before D/C Order can be placed): Home, Self Care Charges/Coding Visit Charges Inpatient E&M: 42028 Disch Hosp >30min
--- NOTE | 2024-09-19 10:22 | CASEMGMT ---
Patient has order for discharge. Patient sleeping. RN CM called and left message with son Gigi. RN CM called caregiver Hui and updated that patient is discharging. 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 Hui had no questions or concerns at this time.
[2024-09-19 11:49] VITALS: O2SAT 90; O2SAT 93
[2024-09-19 13:11] VITALS: BP 153/91; PULSE 99; RESP 18; TEMP 36.5; O2SAT 90; O2SAT 93; O2SAT 94
--- NOTE | 2024-09-19 13:45 | PHA.DC_ITS ---
Pharmacy IN Med Reconciliation Pharmacy Service has performed discharge medication reconciliation for this patient. Medication education papers prepared, unable to addiction treatment counselor. Medications reviewed. The patient's discharge medication list was reviewed for discrepancies and discrepancies were resolved. Medications at Discharge Home Medications levothyroxine 50 mcg tablet 50 mcg PO DAILY thyroid 07/25/19 atorvastatin 40 mg tablet 40 mg PO QHS cholesterol 07/28/19 spironolactone 25 mg tablet 25 mg PO DAILY diuretic 07/28/19 aspirin 81 mg chewable tablet 81 mg PO DAILY@0800 health 12/14/21 albuterol sulfate 90 mcg/actuation aerosol inhaler (Ventolin HFA) 2 puff inhalation Q4H PRN PRN Wheezing ##1 03/15/23 fluticasone 250 mcg-salmeterol 50 mcg/dose blistr powdr for inhalation 1 inh inhalation Q12H breathing 09/10/24 gabapentin 300 mg capsule 300 mg PO BID nerve pain 09/10/24 nitroglycerin 0.3 mg sublingual tablet 0.3 mg sublingual Q5M PRN chest pain 09/10/24 paroxetine HCl 40 mg tablet 40 mg PO DAILY mental health 09/10/24 atenolol 50 mg tablet 50 mg PO DAILY blood pressure #30 tabs 09/12/24 furosemide 40 mg tablet (Lasix) 40 mg PO BID diuretic #60 tabs 09/12/24 warfarin 2.5 mg tablet (Jantoven) 5 mg (2 x 2.5 mg) PO 1700 blood thinner #60 tabs 09/12/24 buspirone 10 mg tablet 10 mg PO BID 1 month #60 tabs 09/19/24 hydroxyzine HCl 25 mg tablet 25 mg PO TID PRN anxiety #20 tabs 09/19/24 losartan 50 mg tablet 25 mg (1/2 x 50 mg) PO DAILY #30 tabs 09/19/24
== END 2024-09-19 13:07 | disposition home or self-care (01) ==
LOC: ED 19:09 → PCU 21:25
PROVIDERS: Internal Medicine; Admitting Provider Family Medicine; Emergency Provider Emergency Medicine; PCP Family Medicine; Visit Provider Internal Medicine
DX: R41.82 Altered mental status, unspecified (principal); J69.0 Pneumonitis due to inhalation of food and vomit; J96.11 Chronic respiratory failure with hypoxia; I13.0 Hypertensive heart and chronic kidney disease with heart failure and stage 1 through stage 4 chronic kidney disease, or unspecified chronic kidney disease; I50.32 Chronic diastolic (congestive) heart failure; J44.9 Chronic obstructive pulmonary disease, unspecified; I48.0 Paroxysmal atrial fibrillation; D72.829 Elevated white blood cell count, unspecified; G62.9 Polyneuropathy, unspecified; Z79.891 Long term (current) use of opiate analgesic; Z79.01 Long term (current) use of anticoagulants; F41.9 Anxiety disorder, unspecified; N18.2 Chronic kidney disease, stage 2 (mild); G93.40 Encephalopathy, unspecified; E66.9 Obesity, unspecified; Z95.1 Presence of aortocoronary bypass graft; E78.5 Hyperlipidemia, unspecified; Z79.899 Other long term (current) drug therapy; I25.10 Atherosclerotic heart disease of native coronary artery without angina pectoris; Z87.891 Personal history of nicotine dependence; Z86.73 Personal history of transient ischemic attack (TIA), and cerebral infarction without residual deficits; E03.9 Hypothyroidism, unspecified; F32.A Depression, unspecified; R44.3 Hallucinations, unspecified; Z68.28 Body mass index [BMI] 28.0-28.9, adult; Z95.5 Presence of coronary angioplasty implant and graft; Z85.46 Personal history of malignant neoplasm of prostate; R29.898 Other symptoms and signs involving the musculoskeletal system
CPT/HCPCS: 36415; 36600; 70450; 70496; 70498; 70551; 71045; 80048; 80053; 80061; 81001; 82140; 82803; 83036; 83735; 84145; 84443; 84484; 85025; 85610; 92610; 93005; 94640; 94762; 95819; 96361; 96374; 96375; 97110; 97116; 97162; 97166; 97535; 97802; 99221; 99285; Q9967; A4216; G0378

== ENCOUNTER 2024-09-27 17:39 | Observation (INO) | payer MEDICARE, SELFPAY ==
[2024-09-27] VITALS (7 sets, daily range): BP systolic 100–126; BP diastolic 59–76; PULSE 79–91; RESP 14–26; TEMP 36.6–37.1; O2SAT 90–100; BMI 27.4
--- NOTE | 2024-09-27 18:10 | EKG12_ITS ---
Test Reason : DYSRHYTHMIA Blood Pressure : */* mmHG Vent. Rate : 86 BPM Atrial Rate : * BPM P-R Int : * ms QRS Dur : 76 ms QT Int : 364 ms P-R-T Axes : * 5 13 degrees QTcB Int : 435 ms Atrial fibrillation Abnormal ECG Confirmed by ALIDA GRAHAM, ELOISA ([id number]), newspaper editor managing JESUS HERNANDEZ ([id number]) on 10/01/2024 6:36:04 AM Referred By: Confirmed By: ELOISA IRWIN MD
--- NOTE | 2024-09-27 18:13 | EX.ED.DYSGE1 ---
HPI History of Present Illness Chief Complaint: General Illness Narrative Narrative: Patient is an 83-year-old male presenting to the emergency department for low blood pressure at urgent care. Patient has a past medical history of CAD, COPD, CHF, stroke, hypothyroidism. On warfarin, on his most recent INR check it was elevated at 7.5. Patient lives at home with a caregiver. Caregiver helps provide history. She states that over the past month the patient has been admitted twice for aspiration pneumonia. She is every time he is discharged he seems to get weaker and weaker. States that he needs help ambulating because he cannot do so by himself. She also reports that he has not been eating or drinking well. She reports that he is confused and sometimes combative. Denies fever, chills, chest pain, shortness of breath worse than baseline. He is on 3 L nasal cannula at baseline. Denies any abdominal pain, nausea, vomiting, diarrhea. Patient denies any complaints, states that he feels fine. [facility] Medical History Anxiety Hyperlipidemia Aspiration pneumonia Central sleep apnea associated with atrial fibrillation Overweight (BMI 25.0-29.9) Tinea cruris Chest pain Subtherapeutic anticoagulation Generalized weakness Anxiety disorder with panic attacks Respiratory insufficiency Acute exacerbation of chronic heart failure COPD with acute exacerbation Paroxysmal atrial fibrillation with RVR Atherosclerosis of coronary artery of [place] heart without angina pectoris Prostate CA Stroke FREEDMAN (dyspnea on exertion) Central sleep apnea Stage 2 moderate COPD by GOLD classification HTN (hypertension) Hoarseness left vocal cord paralysis Home Medications ?Medication ?Instructions ?Recorded ?Last Taken ?Type levothyroxine 50 mcg tablet 50 mcg PO DAILY thyroid 07/25/19 12/14/21 History atorvastatin 40 mg tablet 40 mg PO QHS cholesterol 07/28/19 12/14/21 History spironolactone 25 mg tablet 25 mg PO DAILY diuretic 07/28/19 12/14/21 History aspirin 81 mg chewable tablet 81 mg PO DAILY@0800 health 12/14/21 12/14/21 History albuterol sulfate 90 mcg/actuation 2 puff inhalation Q4H PRN PRN 03/15/23 Unknown Rx aerosol inhaler (Ventolin HFA) Wheezing ##1 fluticasone 250 mcg-salmeterol 50 1 inh inhalation Q12H breathing 09/10/24 Unknown History mcg/dose blistr powdr for inhalation gabapentin 300 mg capsule 300 mg PO BID nerve pain 09/10/24 Unknown History nitroglycerin 0.3 mg sublingual 0.3 mg sublingual Q5M PRN chest 09/10/24 Unknown History tablet pain paroxetine HCl 40 mg tablet 40 mg PO DAILY mental health 09/10/24 Unknown History atenolol 50 mg tablet 50 mg PO DAILY blood pressure #30 09/12/24 Unknown Rx tabs furosemide 40 mg tablet (Lasix) 40 mg PO BID diuretic #60 tabs 09/12/24 Unknown Rx warfarin 2.5 mg tablet (Jantoven) 5 mg (2 x 2.5 mg) PO 1700 blood 09/12/24 Unknown Rx thinner #60 tabs buspirone 10 mg tablet 10 mg PO BID 1 month #60 tabs 09/19/24 Unknown Rx hydroxyzine HCl 25 mg tablet 25 mg PO TID PRN anxiety #20 tabs 09/19/24 Unknown Rx losartan 50 mg tablet 25 mg (1/2 x 50 mg) PO DAILY #30 09/19/24 Unknown Rx tabs Allergy/AdvReac Type Severity Reaction Status Date / Time oxycodone (From Percodan) Allergy Other Verified 09/27/24 17:46 Family History Mother Hypertension Father Hypertension Cancer CVA (cerebral vascular accident) Heart disease Surgical History History of coronary artery stent placement (12/16/21) Cataract extraction status History of hip replacement History of open heart surgery Social History household members: family Smoking Status: Former smoker quit date: 02/08/92 pack-years: 37 Tobacco: How many years used: 20 alcohol intake: never substance use type: does not use ROS ROS ED ROS Narrative see HPI EXAM Physical Exam Narrative Exam Narrative: Vital signs: Reviewed General: Alert and orientedx3. No acute distress. Chronically ill appearing. HEENT: Head is normocephalic and atraumatic, sinuses nontender, pupils equal round and reactive. Nares are patent. Oropharynx and throat exams normal. Neck: Supple without lymphadenopathy nontender. Cardiovascular: Irregular irregular rate and rhythm, no murmurs. No rubs or gallops. Normal S1 and S2 Respiratory: Clear to auscultation bilaterally. No wheezes, rales, rhonchi. On 3 L NC, baseline. Abdominal: Soft and nontender. Normal bowel sounds. No guarding or rebound. Nonsurgical abdomen Extremities: No tenderness. No bruising. Normal range of motion. Normal sensation. Skin: No rash or redness. Neurological: Cranial nerves II through XII are grossly intact. Normal strength and sensation. Normal cerebellar function The rest of the physical exam is unremarkable Const Vital Signs: 09/27/24 17:45 09/27/24 19:00 09/27/24 20:20 Temperature 98.1 F Temperature Source Temporal Pulse Rate 79 84 89 Respiratory Rate 17 14 26 H Blood Pressure 111/59 L 115/73 Blood Pressure Mean 76 87 Pulse Ox 90 Oxygen Delivery Method Nasal Cannula Oxygen Flow Rate (L/min) 3 09/27/24 20:57 09/27/24 21:00 Temperature Temperature Source Pulse Rate 84 91 Respiratory Rate 18 18 Blood Pressure 118/76 101/67 Blood Pressure Mean 90 78 Pulse Ox 97 99 Oxygen Delivery Method Nasal Cannula Nasal Cannula Oxygen Flow Rate (L/min) 3 3 MDM MDM MDM Narrative Medical decision making narrative: Patient is an 83-year-old male presenting to the emergency department for reported hypotension at urgent care. Patient was seen and examined. Vitals are stable. Patient resting in bed comfortably no acute distress. Differential includes but is not limited to: Pneumonia, UTI, electrolyte derangement, ACS I do have concern that the patient has been in the hospital twice over the past month and he is slowly getting weaker each time and most likely needs placement in a rehab facility. I had discussion with family at bedside. Recommended that we do a medical workup was well however will likely need admission for placement. EKG shows A-fib that is rate controlled. No ischemic changes. CBC with mild leukocytosis of 11.9, normal hemoglobin. BMP with mild PHILLIP. Troponin of 18. Viral swab negative. Urinalysis still needs to be collected. Chest x-ray reviewed by myself, looks similar to prior. Possible opacity in RLL. Radiology read with pulmonary vascular congestion and right basilar opacity which may represent infiltrate versus atelectasis. With no significant shortness of breath, no cough and very mild leukocytosis, will not treat at this time feel it is likely atelectasis. Family feels that patient is too weak to go home. Cannot ambulate without assistance anymore. They are concerned patient is not eating or drinking at home, consistent with PHILLIP but no electrolyte derangement. They would like the patient admitted for SNF/rehab placement. Discussed with hospitalist, Dr. Walters. Admitted for placement. Clinical impression failure to thrive History & Record Review Discussion w/independent historian: Patient and Family Additional record(s) reviewed:: Prior inpatient record and Prior ED visit Lab Data Attestation: I reviewed the patient's lab results. Labs: Laboratory Results - last 24 hr 09/27/24 09/27/24 18:30 20:50 WBC 11.9 H RBC 4.34 L Hgb 13.2 Hct 41.8 MCV 96.3 H MCH 30.4 MCHC 31.6 L RDW Std Deviation 49.3 H RDW Coeff of Erica 13.9 Plt Count 213 MPV 10.4 Immature Gran % (Auto) 0.800 Neut % (Auto) 75.9 H Lymph % (Auto) 9.3 L Bond % (Auto) 7.3 Eos % (Auto) 5.9 H Baso % (Auto) 0.8 Absolute Neuts (auto) 9.0 H Absolute Lymphs (auto) 1.10 Nucleated RBC % 0 PT 50.4 H INR 5.4 H* Sodium 141 Potassium 4.9 Chloride 100 Carbon Dioxide 32.1 H Anion Gap 9 BUN 34 H Creatinine 1.23 H Estim Creat Clear Calc 47.62 L Est GFR (MDRD) Non-Af 58 L BUN/Creatinine Ratio 27.9 H Glucose 91 Calcium 9.6 Troponin T High Sens 18 D Radiography Chest X-Ray - ED: 2 View, Read by ED Physician and Chronic Changes Diagnostic Testing: Clinical Impression(s) from Imaging Studies Chest X-Ray 09/27/24 18:45 IMPRESSION: Pulmonary findings as above. Reading Location: [facility] Discharge Plan Triage Chief Complaint: General Illness ED Provider: Juliet Briceño Dx/Rx/DC Orders Prescriptions: No Action levothyroxine 50 MCG tablet 50 mcg PO DAILY atorvastatin 40 MG tablet 40 mg PO QHS spironolactone 25 MG tablet 25 mg PO DAILY aspirin 81 MG tablet,chewable 81 mg PO DAILY@0800 albuterol sulfate [Ventolin HFA] 90 mcg/actuation HFA aerosol inhaler 2 puff inhalation Q4H PRN PRN (Reason: Wheezing) Qty: 1 0RF fluticasone propion-salmeterol 250-50 mcg/dose blister with device 1 inh inhalation Q12H nitroglycerin 0.3 mg tablet, sublingual 0.3 mg sublingual Q5M PRN (Reason: chest pain) gabapentin 300 mg capsule 300 mg PO BID paroxetine HCl 40 mg tablet 40 mg PO DAILY warfarin [Jantoven] 2.5 mg Tablet 5 mg PO 1700 Qty: 60 0RF atenolol 50 mg Tablet 50 mg PO DAILY Qty: 30 0RF furosemide [Lasix] 40 mg tablet 40 mg PO BID Qty: 60 0RF losartan 50 mg Tablet 25 mg PO DAILY Qty: 30 0RF buspirone 10 mg tablet 10 mg PO BID 30 Days Qty: 60 0RF hydroxyzine HCl 25 mg tablet 25 mg PO TID PRN (Reason: anxiety) Qty: 20 0RF Primary Care Provider: Shayne Moncada Referrals: Shayne Moncada MD [Primary Care Provider] - Print Language: Greenlandic
--- NOTE | 2024-09-27 18:45 | RAD_ITS ---
PROCEDURE: CHEST PA AND LATERAL 09/27/2024 REASON FOR EXAM: FEELING UNWELL TECHNIQUE: CHEST PA AND LATERAL COMPARISON: 09/16/2024. FINDINGS: Prior sternotomy. Elevation of the right hemidiaphragm. Pulmonary vascular congestion. Right basilar opacity which may represent infiltrate or atelectasis. No acute osseous abnormalities. RAD/Chest PA and Lateral IMPRESSION: Pulmonary findings as above. Reading Location: [id number]
[2024-09-27 18:49] LABS: Hematocrit 41.8 % (40-54); Hemoglobin 13.2 g/dL (13.0-16.5); Immature Granulocytes Count 0.100 X10^3/uL (0.0-0.0); Mean Corp Hgb Conc 31.6 g/dL (32-36); Mean Corpuscular Volume 96.3 fL (80-94); Mean Platelet Vol. 10.4 fl (6.2-12.0); NRBC Flagged by Analyzer 0 % (0-5); Platelet Count 213 K/mm3 (150-450); RBC Distribution Width CV 13.9 % (11.6-14.6); RBC Distribution Width SD 49.3 fl (35.1-43.9); Red Blood Count 4.34 M/mm3 (4.6-6.2); White Blood Count 11.9 K/mm3 (4.4-11.0)
[2024-09-27 19:27] LABS: Anion Gap 9 (5-15); BUN 34 mg/dL (4-19); BUN/Creat Ratio 27.9 RATIO (10-20); Calcium,Total 9.6 mg/dL (7.6-11.0); Carbon Dioxide 32.1 mmol/L (21.0-32.0); Chloride 100 mmol/L (98-108); Estimated Creatinine Clearance 47.62 ml/min (50-250); Glucose 91 mg/dL (70-99); Potassium 4.9 mmol/L (3.3-5.1)
[2024-09-27 19:45] LABS: Troponin T High Sensitivity 18 ng/L (<=22)
--- NOTE | 2024-09-27 20:15 | PCM.HP.STD ---
HPI - General General Date of Admission: 09/27/24 Date of Service: 09/27/24 Chief Complaint: Debility, weakness, need for placement consideration. HPI Narrative The patient is an 83 y/o M w/ PMHx: Obesity, HTN, HLD, CAD s/p CABG x 2 and PCI, HFpEF, Hypothyroidism, Chronic neuropathy, CKD stage II per GFR trending, Hx CVA, Anxiety and Depression/Panic attacks, COPD with Chronic Hypoxic Respiratory Failure (3L NC) with recent serial admissions secondary to aspiration PNA who presents to the [facility] ED on 09/27/2024 from urgent care secondary to concerns for low blood pressure with caregiver noting that over the last month patient has needed admitted twice for aspiration pneumonia and he has continued to significantly weak and normally only at home with a caregiver but now he cannot even ambulate by himself with poor oral intake as well as increased confusion and occasional combativeness with no recent specific fever, chills, dyspnea or marked cough with patient actually reporting that he feels well but given decline prompted ED evaluation. From review of records patient had been recommended to transition from hospital to skilled facility however patient's son Gigi per documentation decided to transition to home with outpatient therapies given there was no TCU bed available. Workup in the ED included T98.1, heart 79, BP 111/59, respiratory rate 17, 90% on 3 L nasal cannula noted most recently 09/19/2024 to be 94% on 3 L with most recent repeat vitals heart rate 84, BP 115/73, respiratory rate 14, CBC with WBC 11.9, hemoglobin 13.2, platelet 213 with left shift, BMP with carbon oxide 32.1, BUN/creatinine 30/1.23, GFR 58, troponin 18, chest x-ray with pulmonary vascular congestion with a right basilar opacity possibly infiltrate versus atelectasis, EKG with A-fib rate controlled. Review of most recent weights 09/19/2024 at discharge 202 pounds and upon current presentation weight 197 pounds. [facility] Medical History Anxiety Hyperlipidemia Aspiration pneumonia Central sleep apnea associated with atrial fibrillation Overweight (BMI 25.0-29.9) Tinea cruris Chest pain Subtherapeutic anticoagulation Generalized weakness Anxiety disorder with panic attacks Respiratory insufficiency Acute exacerbation of chronic heart failure COPD with acute exacerbation Paroxysmal atrial fibrillation with RVR Atherosclerosis of coronary artery of [place] heart without angina pectoris Prostate CA Stroke FREEDMAN (dyspnea on exertion) Central sleep apnea Stage 2 moderate COPD by GOLD classification HTN (hypertension) Hoarseness left vocal cord paralysis Home Medications ?Medication ?Instructions ?Recorded ?Last Taken ?Type levothyroxine 50 mcg tablet 50 mcg PO DAILY thyroid 07/25/19 12/14/21 History atorvastatin 40 mg tablet 40 mg PO QHS cholesterol 07/28/19 12/14/21 History spironolactone 25 mg tablet 25 mg PO DAILY diuretic 07/28/19 12/14/21 History aspirin 81 mg chewable tablet 81 mg PO DAILY@0800 health 12/14/21 12/14/21 History albuterol sulfate 90 mcg/actuation 2 puff inhalation Q4H PRN PRN 03/15/23 Unknown Rx aerosol inhaler (Ventolin HFA) Wheezing ##1 fluticasone 250 mcg-salmeterol 50 1 inh inhalation Q12H breathing 09/10/24 Unknown History mcg/dose blistr powdr for inhalation gabapentin 300 mg capsule 300 mg PO BID nerve pain 09/10/24 Unknown History nitroglycerin 0.3 mg sublingual 0.3 mg sublingual Q5M PRN chest 09/10/24 Unknown History tablet pain paroxetine HCl 40 mg tablet 40 mg PO DAILY mental health 09/10/24 Unknown History atenolol 50 mg tablet 50 mg PO DAILY blood pressure #30 09/12/24 Unknown Rx tabs furosemide 40 mg tablet (Lasix) 40 mg PO BID diuretic #60 tabs 09/12/24 Unknown Rx warfarin 2.5 mg tablet (Jantoven) 5 mg (2 x 2.5 mg) PO 1700 blood 09/12/24 Unknown Rx thinner #60 tabs buspirone 10 mg tablet 10 mg PO BID 1 month #60 tabs 09/19/24 Unknown Rx hydroxyzine HCl 25 mg tablet 25 mg PO TID PRN anxiety #20 tabs 09/19/24 Unknown Rx losartan 50 mg tablet 25 mg (1/2 x 50 mg) PO DAILY #30 09/19/24 Unknown Rx tabs Allergy/AdvReac Type Severity Reaction Status Date / Time oxycodone (From Percodan) Allergy Other Verified 09/27/24 17:46 Family History Mother Hypertension Father Hypertension Cancer CVA (cerebral vascular accident) Heart disease Surgical History History of coronary artery stent placement (12/16/21) Cataract extraction status History of hip replacement History of open heart surgery Social History household members: family Smoking Status: Former smoker quit date: 02/08/92 pack-years: 37 Tobacco: How many years used: 20 alcohol intake: never substance use type: does not use ROS ROS Narrative Admission Review of Systems: CONSTITUTIONAL: No weight loss, fever, chills, + weakness or fatigue. HEENT: Eyes: No visual loss, blurred vision, double vision or yellow sclerae. Ears, Nose, Throat: No hearing loss, sneezing, congestion, runny nose or sore throat. SKIN: No rash or itching, lesions, wounds except + various ecchymoses, abrasions. CARDIOVASCULAR: No chest pain, chest pressure or chest discomfort, palpitations, edema, orthopnea, syncopal events. RESPIRATORY: + On chronic 2 L nasal cannula. Denies any marked dyspnea, cough or sputum, wheezing, hemoptysis. GASTROINTESTINAL: + Does admit to decreased appetite but in large part secondary to need for alteration given aspiration history. No nausea, vomiting or diarrhea, abdominal pain, melena, BRBPR. GENITOURINARY: No dysuria, frequency, urgency or retention. NEUROLOGICAL: + Chronic bilateral distal neuropathy. No headache, dizziness, syncope, paralysis, ataxia, focal weakness, change in bowel or bladder control, seizure. MUSCULOSKELETAL: + muscle, back pain, joint pain or stiffness. HEMATOLOGIC: No anemia. + Easy bleeding/bruising. LYMPHATICS: No enlarged nodes. No history of splenectomy. PSYCHIATRIC: + History of anxiety and depression/panic attacks. ENDOCRINOLOGIC: No reports of sweating, cold or heat intolerance. No polyuria or polydipsia. ALLERGIES: No history of asthma, hives, eczema or rhinitis. Vital Signs Vital Signs Vital Signs: 09/27/24 17:45 09/27/24 19:00 Temperature 98.1 F Temperature Source Temporal Pulse Rate 79 84 Respiratory Rate 17 14 Blood Pressure 111/59 L 115/73 Blood Pressure Mean 76 87 Pulse Ox 90 Oxygen Delivery Method Nasal Cannula Oxygen Flow Rate (L/min) 3 Weight Weight: 197 lb 1.492 oz Body Mass Index (BMI) 27.4 Physical Exam Narrative Physical Examination: General: Awake, alert, oriented to self, place and some recent events, remains cooperative, seated upright in ED bed, discussed at length concept of skilled facility and that this can be short-term for ongoing therapies and is not necessarily a long-term concept. Skin: Normal color, normal turgor, no icterus, no cyanosis except very stage ecchymoses, abrasions. HEENT: AT/NC, EOMI, PERRLA, MMM, supplemental oxygen in place, no carotid bruits or JVD noted. Lungs: Mildly diminished, greater bases, poor effort, no rales, ronchi or wheezing. Heart: Irregular, rate controlled; no gallop, rub audible. Abdomen: Soft, NTTP, ND, mildly hyperactive BS, no appreciated HSM. Extremities: No cyanosis, no clubbing, no marked distal significant pitting edema. Neurological: Patient awake, alert, oriented x 3, cognitive function intact; pupils equally reactive to light and accommodation, cranial nerves grossly normal, moving all 4 extremities, no focal deficits, strength preserved. Psychiatric: Affect appears mildly fatigued otherwise normal, no acute evidence of depressive or anxiety feelings but does have underlying notable history. Results Lab / Micro Data 09/27/24 18:30 09/27/24 18:30 Labs: Laboratory Results - last 24 hr 09/27/24 18:30: WBC 11.9 H, RBC 4.34 L, Hgb 13.2, Hct 41.8, MCV 96.3 H, MCH 30.4, MCHC 31.6 L, RDW Std Deviation 49.3 H, RDW Coeff of Erica 13.9, Plt Count 213, MPV 10.4, Immature Gran % (Auto) 0.800, Neut % (Auto) 75.9 H, Lymph % (Auto) 9.3 L, [place] % (Auto) 7.3, Eos % (Auto) 5.9 H, Baso % (Auto) 0.8, Absolute Neuts (auto) 9.0 H, Absolute Lymphs (auto) 1.10, Nucleated RBC % 0, Sodium 141, Potassium 4.9, Chloride 100, Carbon Dioxide 32.1 H, Anion Gap 9, BUN 34 H, Creatinine 1.23 H, Estim Creat Clear Calc 47.62 L, Est GFR (MDRD) Non-Af 58 L, BUN/Creatinine Ratio 27.9 H, Glucose 91, Calcium 9.6, Troponin T High Sens 18 D Micro: Microbiology 09/27/24 18:38 Mucosa - Nose SARS-CoV-2, Influenza & RSV (PCR) - Final Imaging Radiology Impression Chest X-Ray 09/27/24 18:45 IMPRESSION: Pulmonary findings as above. Reading Location: [facility] Assessment & Plan Assessment/Plan (1) Adult failure to thrive: PLAN: Plan The patient is an 83 y/o M w/ PMHx: Obesity, HTN, HLD, CAD s/p CABG x 2 and PCI, HFpEF, Hypothyroidism, Chronic neuropathy, CKD stage II per GFR trending, Hx CVA, Anxiety and Depression/Panic attacks, COPD with Chronic Hypoxic Respiratory Failure (3L NC) with recent serial admissions secondary to aspiration PNA who presents to the [facility] ED on 09/27/2024 from urgent care secondary to concerns for low blood pressure with caregiver noting that over the last month patient has needed admitted twice for aspiration pneumonia and he has continued to significantly weak and normally only at home with a caregiver but now he cannot even ambulate by himself with poor oral intake as well as increased confusion and occasional combativeness with no recent specific fever, chills, dyspnea or marked cough with patient actually reporting that he feels well but given decline prompted ED evaluation. #1. Fatigue, debility, Adult FTT: Will admit to medical surgical floor, maintain on fall and aspiration precautions, very judiciously hydrate only if necessary, continue altered food with compensatory strategies as noted #3, trend CBC, CMP, encourage aggressive head of bed, I-S, nutrition consulted for recommendations given recent history of decreased oral intake, PT/OT/ST consulted for discharge planning with ideally skilled facility transition although family still amenable only to transitional care and not long-term placement. #2. Acute renal insufficiency/elevated creatinine on chronic Kidney Disease Stage II, per GFR trending: Strongly encouraged appropriate oral intake, given recent serial presentations with acute heart failure exacerbations will defer aggressive hydration and encourage intake instead, admission BUN/Cr 34/1.23, GFR 58, baseline renal function 0.6-0.9, repeat BMP in AM. Will continue patient Lasix and spironolactone at this point but low threshold to hold if function worsens. #3. Dysphagia associated aspiration with history of CVA with left vocal cord paralysis complicated by recent serial presentations for aspiration PNA: Will maintain on aspiration precautions, will reconsult speech therapy, will continue diet adjustment with nectar thickened liquids with recommended compensatory strategies including small bites, small sips, slow rate, feed only when alert, multiple swallows, alternating bites/solids and sips/liquids, sitting upright and remaining seated upright 30 minutes after oral intake with supervision one-to-one direct supervision.. #4. PAF: EKG upon presentation with rate controlled atrial fibrillation, will continue patient home Coumadin with INR trending as well as atenolol home regimen. #5. CAD: Status post previous CABG x 2 and PCI noted of the distal left main and then the circumflex artery, also saphenous vein graft to the obtuse marginal branch and ECHEVARRIA to the LAD previously noted to be patent with an occluded right coronary artery and [id number] collaterals evident, will continue Coumadin with INR trending, statin therapy, atenolol, not on ISSAC inhibitor/ARB potentially secondary to underlying CKD stage II but uncertain. #6. Chronic COPD with chronic hypoxic respiratory failure: Will maintain on 3 L NC home oxygen supplementation, temporarily hold home inhaler and transition interim to ATC budesonide therapy, PRN albuterol, HOB, IS parameters. #7. Chronic neuropathy: Will cautiously continue patient on gabapentin regimen, low threshold to hold for sedation. Discussed frankly that patient would be inappropriate to drive given the severity of his chronic bilateral neuropathy. Patient's brother was present for these discussions. #8. History of CVA: Patient with history of previous strokes including left brainstem stroke, will continue Coumadin with INR trending, statin therapy, hypertensive regimen as noted. #9. Chronic HFpEF: Will request INR level, continue home statin, atenolol, spironolactone, Lasix regimen, most recent echocardiogram during recent admission 09/10/2024 with normal LV size, LV systolic function lower limits of normal, EF 53%, mild focal MV calcification, bileaflet, PASP 40 mmHg. Judiciously hydrate as needed. #10. Anxiety and depression, panic attacks: Will continue patient on paroxetine regimen and low-dose BuSpar with hold for sedation. #11. Hypertension: Continue home regimen including spironolactone, lasix, atenolol with hold parameters as needed, PRN hydralazine. #12. Hyperlipidemia: Will continue patient statin therapy. #13. Hypothyroidism: Will continue patient levothyroxine regimen. #14. Obesity: Weight loss and lifestyle changes encouraged. #15. DVT prophylaxis: Will continue Coumadin with INR upon presentation pending. #16. CODE status: Full Code. Charges/Coding Visit Charges Inpatient E&M: 46840 Init Hosp L2
[2024-09-27 21:07] LABS: Prothrombin Time (Protime)PT. 50.4 SECONDS (11.7-14.9)
[2024-09-27 21:31] LABS: Magnesium 2.4 mg/dL (1.5-2.2)
--- OUTSIDE RECORDS SUMMARY | 2024-09-27 21:35 | XMS RPT_ITS | CCD ---
Author Organization [facility] Care Team Providers Care Palaeontologist Name Role Phone Paddy Zaidi MD Primary [...] Paddy Zaidi MD Primary Care Provider [phone] Dr. Lito Pérez Attending Provider Dr. Lamberto Dinero Referring Provider Dr. Shayne Zaidi Referring Provider Daksha BROOM HANDLE DIPPER, BROOM HANDLE DIPPER-C Shanon Attending Provider Paddy Zaidi MD Primary Care Provider Tanya 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.GRANTS ASSISTANT, Hever Unavailable [phone] Dr. Shayne Zaidi MD Primary Care Provider Dr. Kristopher Valencia DO Admit Provider Unavail able Valencia DO, Dr. Kristopher Other Provider Unavail able Dr. Aayush Sibley DO Attending Provider Alfredo GRAHAM, Dr. Church Other Provider Unavailable Sis GRAHAM, Dr. Cole Other Provider Unavailable Gianna GRAHAM, Dr. Saha Other Provider Get GRAHAM, Dr. Tay Other Provider Cliff GRAHAM, Dr. Hidalgo Other Provider Pa GRAHAM, Dr. Hameed Other Provider Unavailable Renzo GRAHAM, Dr. Haynes Other Provider Cory MENDOZA, Dr. Kristopher Arambula Other Provider Nael GRAHAM, Dr. Lopez Other Provider Laya GRAHAM, Dr. Burnett Other Provider Jenise GRAHAM, Dr. Gomez Other Provider Caridad GRAHAM, Dr. Soliz Other Provider Gwen GRAHAM, Dr. Nelson Other Provider Rose BROOM HANDLE DIPPER-C, Tylor Tobar Other Provider Jenny Rachel Other Provider Moses López Other Provider Maryjo MENDOZA, Dr. Looney Other Provider Renzo GRAHAM, Dr. Haynes Attending Provider TYLOR NG Attending Unavailable PADDY ZAIDI Primary Care Unavailable Dr. Chris Cole DO Emergency Provider [phone] Romeo GRAHAM, Dr. Olivia Malave Admit Provider Romeo GRAHAM, Dr. Olivia Malave Attending Provider Romeo GRAHAM, Dr. Olivia Malave Other Provider Micheal GRAHAM, Dr. Murray Attending Provider Shweta GRAHAM, Dr. Spain Other Provider Dr. Trixie Jeronimo MD Other Provider [phone] Ant Espinoza MD Other Provider Regina MS, Darius Other Provider Trever GRAHAM, Dr. Porter Other Provider Erick GRAHAM, Luis Antonio Other Provider KEVIN BEARD MD Other Provider Aga Servin MD Other Provider Christian GRAHAM, Dr. Meza Other Provider Tabatha GRAHAM, Stan Other Provider Soledad GRAHAM, Sweetie Other Provider Maikel Morocho MD Other Provider Unavailable Vi GRAHAM, Nerissa Other Provider Unavailable Dr. Denise Aparicio DO Other Provider Miguel GRAHAM, Dr. Dutton Other Provider Tiff GRAHAM, Dr. Harmon Other Provider Olga GRAHAM, Dr. Joseph Other Provider Jose Manuel GRAHAM, Dr. Davies Other Provider Leandro GRAHAM, Dr. Orozco Other Provider Lj GRAHAM, Dr. Lopez Other Provider Dr. Philippe Syed MD Other Provider Stephen GRAHAM, Dr. Krishnan Other Provider Dr. Selam Monique MD Other Provider Aleida GRAHAM, Dr. Abarca Other Provider Rick GRAHAM, Dr. Parada Other Provider Unavailable Jyotsna GRAHAM, Gonzalo Other Provider Unavailable Micheal GRAHAM, Dr. Murray Other Provider [phone] Olivia Walters Consulting Unavailable Olivia Walters Admitting Unavailable Shayne Zaidi Primary Care Unavailable Trevor Burton Attending Unavailable Adeli, Amir Consulting Unavailable Phani, Trixie Consulting Unavailable Ant Espinoza Consulting Unavailable Darius Tapia Consulting Unavailable German Perera Consulting Unavailable Luis Antonio Suarez Consulting Unavailable KEVIN BEARD Consulting Unavailable Aga Servin Consulting Unavailable Susana Gonzales Consulting Unavailable Stan Mays Consulting Unavailable Sweetie Rowe Consulting Unavailable Maikel Morocho Consulting Unavailable Nerissa Lebron Consulting Unavailable Denise Aparicio Consulting Unavailable [place] Rivera Consulting Unavailable Eden Matthew Consulting Unavailable Jake Espinoza Consulting Unavailable Samson Richard Consulting Unavailable Ernesto Reeves Consulting Unavailable John Calhoun Consulting Unavailable Philippe Syed Consulting UnavailEulogio Valladares Consulting Unavailable Selam Moniqeu Consulting Unavailable Tevin Shin Consulting Unavailable Karma Cabrera Consulting Unavailable Gonzalo Goyal Consulting Unavailable Micheal, Trevor Consulting Unavailable [facility] Care Unavailable Alpa Jeffries Attending Unavailable [facility] Care Unavailable Aayush Sibley Referring Unavailable Aayush Sibley Attending Unavailable [facility] Care Unavailable Aayush Sibley Attending Unavailable Kristopher Valencia Admitting Unavailable Kristopher Valencia Consulting Unavailable Amramira Ahmed Consulting Unavailable Jabri Ahmad Consulting Unavailable Mostafa, Yifan Consulting Unavailable Get Jasvir Consulting Unavailable Rocky Coronado Consulting Unavailable Yoseph Winn Consulting Unavailable Dallas Muller Consulting Unavailable Kristopher Ray Consulting Unavailable John Nayak Consulting Unavailable Rosalino Asif Consulting Unavailable Patricia Burden Consulting UnavailMartínez Banda Consulting Unavailable Omar Hidalgo Consulting Unavailable Tylor Rose NP Consulting Unavailable Jenny Rachel Consulting Unavail able Moses Alexis Consulting Unavailable Olivia Walters Consulting Unavailable Olviia Walters Admitting Unavailable [facility] Primary Care Unavailable Micheal, Trevor Attending Unavailable Judit Rock Consulting Unavailable Trixie Jeronimo Consulting Unavailable Ant Espinoza Consulting Unavailable Darius Tapia Consulting Unavailable German Perera Consulting Unavailable Luis Antonio Suarez Consulting Unavailable KEVIN BEARD Consulting Unavailable Aga Servin Consulting Unavailable Susana Gonzales Consulting Unavailable Stan Mays Consulting Unavailable Sweetie Rowe Consulting Unavailable Maikel Morocho Consulting Unavailable Nerissa Lebron Consulting Unavailable Denise Aparicio Consulting Unavailable [place] Rivera Consulting Unavailable Eden Matthew Consulting Unavailable Jake Espinoza Consulting Unavailable Samson Richard Consulting Unavailable Ernesto Reeves Consulting Unavailable John Calhoun Consulting Unavailable Philippe Syed Consulting UnavailEulogio Valladares Consulting Unavailable Selam Monique Consulting Unavailable Tevin Shin Consulting Unavailable Karma Cabrera Consulting Unavailable Gonzalo Goyal Consulting Unavailable Shayne Zaidi Primary Care Unavailable Aayush Sibley Attending Unavailable Kristopher Valencia Admitting Unavailable Kristopher Valencia Consulting Unavailable AmrAmbreen colliermed Consulting Unavailable Douglas Alegre Consulting Unavailable Yifan Katz Consulting Unavailable Jasvir Deutsch Consulting Unavailable Rocky Coronado Consulting Unavailable Yoseph Winn Consulting Unavailable Dallas Muller Consulting Unavailable Kristopher Ray Consulting Unavailable John Nayak Consulting Unavailable Rosalino sAif Consulting Unavailable Patricia Bruden Consulting UnavailMartínez Banda Consulting Unavailable Omar Hidalgo Consulting Unavailable Tylor Rose NP Consulting Unavailable Jenny Rachel Consulting Unavail able Moses Alexis Consulting Unavailable Aayush Sibley Consulting Unavailable Kristopher Valencia Attending Unavailable Dallas Muller Attending Unavailable Olivia Walters Attending Unavailable TREY SMITH Attending Unavailable BURTON HUYNH Referring Unavailable PADDY ZAIDI Primary Care Unavailable BURTON HUYNH Referring Unavailable PADDY ZAIDI R Primary Care Unavailable TREY SMITH Attending Unavailable NICHOLASTAK PADDY R Primary Care Unavailable HEVER MARTÍNEZ Referring Unavailable NICHOLASTAK, PADDY R Primary Care Unavailable KONTAKJENNIFERPADDY R Attending Unavailable NICHOLASTAK, PADDY R Primary Care Unavailable NICHOLASTAKPADDY R Attending Unavailable NICHOLASTAK, PADDY R Primary Care Unavailable HEVER MARTÍNEZ Attending Unavailable SELF Referring Unavailable KONTAK, PADDY R Primary Care Unavailable KONTAK, PADDY R Referring Unavailable KONTAK, PADDY R Primary Care Unavailable TANYA, HEVER Referring Unavailable NICHOLASTAK, PADDY R Primary Care Unavailable JOSÉ MIGUEL MARTÍNEZN Referring Unavailable NICHOLASTAK, PADDY R Primary Care Unavailable BURTON HUYNH Attending Unavailable HEVER MARTÍNEZ Referring Unavailable PADDY ZAIDI Primary Care Unavailable BURTON HUYNH Referring Unavailable PADDY ZAIDI Primary Care Unavailable BURTON HUYNH Referring Unavailable PADDY ZAIDI Primary Care Unavailable Allergies Allergy Classification Reported Allergen(s) Allergy Type Date of Onset Reaction(s) Facility (20 sources) Aspirin / oxyCODONE; Translations: [OXYCODONE-ASPIR IN] Drug Allergy 5 Mental Status Change [facility] Work Phone: (20 sources) oxyCODONE; Translations: [OXYCODONE] Drug Allergy 9 Other: See Comments [facility] (20 sources) Aspirin; Translations: [ASPIRIN] Drug Allergy 9 Unknown [facility] (1 source) oxyCODONE Drug Allergy 5 [facility] Repository Medications Current Medications Medication Drug Class(es) Dates Sig (Normalized) Sig (Original) [id number] 200 actuat albuterol 0.09 mg/actuat metered dose [...] 08, 2017 11:00pm January 12, 2018 2:32pm aspirin 81 mg chewable tablet (20 sources) Platelet Aggregation Inhibitor, Nonsteroidal Anti-inflammatory Drug Start: 07-28-2019 End: 12-14-2021 take 1 tablet by mouth once daily aspirin 81 mg chewable tablet Take 81 mg by mouth once daily. 08/17/2019 Active Start: 12-17-2004 End: 06-22-2021 take 1 tablet [...] Tablet Active 50 mg PO DAILY 30 0 September 12, 2024 12:00am blood pressure Start: 02-22-2022 End: 06-18-2024 take 0.5 tablet [...] Comment on above: Take 1 tablet by araceli th once daily Take 1 tablet by araceli th once daily. Take 0.5 tablets by mouth once daily. atorvastatin 40 mg oral tablet (20 sources) HMG-CoA Reductase Inhibitor Start: 9 End: take 1 tablet by mouth once daily atorvastatin (LIPITOR) 40 mg tablet Indications: Mixed hyperlipidemia Take 1 tablet by mouth once daily. 90 tablet 3 06/19/2024 06/19/2025 Active Comment on above: Take 1 tablet by araceli once daily. busPIRone hydrochloride 10 mg oral tablet (2 sources) Start: 5 busPIRone (BUSPAR) 10 mg tablet 09/19/2024 Active Fluticasone Propion-Salmeterol (20 sources) Corticosteroid, beta2-Adrenergic Agonist Start: 5 Fluticasone Propion-Salmeterol 250-50 mcg/dose blister with device Active 1 NMA INHALATION Q12H September 10, 2024 12:00am breathing Start: 09-10-2024 Fluticasone Pr opion-Salmeterol 250-50 mcg/dose blister with device Active 1 NMA INHALATION Q1H September 10, 2024 12:00am Start: 03-27-2024 take 1 puff(s) by mo [facility] twice daily fluticasone-salmeterol (ADVAIR DISKUS) 250-50 mcg/dose inhaler Inhale 1 Puff as instructed two times a day. RINSE AND GARGLE MOUTH WITH WATER AFTER EACH USE. 60 Each 5 03/27/2024 Active furosemide 40 mg oral tablet (20 sources) Loop Diuretic Start: 09-25-2024 take 0.5 tablet by mouth twice daily furosemide (LASIX) 40 mg tablet Take 0.5 tablets by mouth two times a day. 09/25/2024 Active Start: 09-12-2024 take 1 tablet by araceli th twice daily Furosemide (Lasix) 40 mg tablet Active 40 mg PO TWICE A DAY 60 0 September 12, 2024 12:00am diuretic Start: 06-21-2024 End: 09-25-2024 take 1 tablet by mouth once daily furosemide (LASIX) 20 mg tablet Take 1 tablet by mouth once daily 30 tablet 06/21/2024 09/25/2024 Discontinued Start: 06-07-2023 End: 06-19-2024 take 1 tablet by mouth once daily furosemide (LASIX) 20 mg tablet Take 1 tablet by mouth once daily 30 tablet 06/19/2024 Active gabapentin 300 mg oral capsule (20 sources) Anti-epileptic Agent Start: 07-13-2024 End: 12-24-2024 take 1 capsule by mouth twice daily gabapentin (NEURONTIN) 300 mg capsule Take 1 capsule by mouth two times a day for 90 days. 60 capsule 2 09/25/2024 12/24/2024 Active Start: 12-14-2021 End: 10-10-2024 take 2 capsules by mouth at bedtime Gabapentin 100 mg capsule Discontinued 200 mg PO AT BEDTIME December 14, 2021 1:00am September 10, 2024 1:15am foot pain Start: 12-14-2021 take 200 mg by mouth [...] twice daily for 180 days. For neuropathy hydrOXYzine hydrochloride 25 mg oral tablet (1 source) Antihistamine Start: 09-20-19 take 1 tablet by mouth three times daily as needed for anxiety Hydroxyzine Hcl 25 mg tablet Active 25 mg PO THREE TIMES A DAY as needed for anxiety September 19, 2024 12:00am levothyroxine sodium 0.05 mg oral tablet (20 sources) l-Thyroxine Start: 07-25-19 End: 08-15-19 take 1 tablet by mouth once daily levothyroxine (SYNTHROID) 50 mcg tablet Indications: Hypothyroidism, unspecified type Take 1 tablet by mouth once daily. 90 tablet 3 08/14/2024 08/14/2025 Active Comment on above: TAKE 1 TABLET BY RAACELI TH ONCE DAILY ON AN EMPTY STOMACH Take 1 tablet by araceli th once daily. LORazepam 0.5 mg oral tablet (11 sources) Benzodiazepine Start: 09-26-19 End: 10-06-19 take 1 tablet by mouth three times daily as needed LORazepam (ATIVAN) 0.5 mg Indications: Anxiety attack Take 1 tablet by mouth three times a day as needed for up to 10 days. 10 tablet 1 09/25/2024 10/05/2024 Active Start: 07-13-2024 End: 07-23-2024 take 1 tablet by mouth three times [...] TIMES DAILY NEEDED as needed for Anxiety July 28, 2019 12:00am August 14, 2019 8:16am losartan potassium 50 mg oral tablet (2 sources) Angiotensin 2 Receptor Karis Start: 09-19-2024 take 1 tablet by mouth once daily losartan (COZAAR) 50 mg tablet Take 50 mg by mouth once daily. 09/19/2024 Active Start: 09-19-2024 Losartan 50 mg Tablet Active 25 mg PO DAILY 30 0 September 19, 2024 12:00am nitroglycerin 0.3 mg sublingual tablet (20 sources) [...] the tongue every 5 minutes as needed. potassium chloride 10 meq extended release oral tablet (20 sources) Start: 09-25-2024 take 1 tablet by mouth twice daily potassium chloride (K-TAB) 10 mEq tablet Indications: Hypokalemia Take 1 tablet by mouth two times a day. 180 tablet 09/25/2024 Active Start: 12-14-2021 take 20 mEq by mouth once yoel y Potassium Chloride Active 20 MEQ PO DAILY December 14, 2021 12:00am Start: 12-03-2021 End: 09-25-2024 take 2 tablets by mouth in the morning potassium chloride (K-TAB) 10 mEq tablet Indications: Hypokalemia TAKE 2 TABLETS BY MOUTH IN THE MORNING 180 tablet 07/13/2024 09/25/2024 Discontinued Start: 02-23-2021 End: 09-10-2021 take 2 tablets by mouth once daily at breakfast potassium chloride (K-TAB) 10 mEq tablet Indications: Hypokalemia TAKE 2 TABLETS BY MOUTH ONCE DAILY WITH BREAKFAST 180 tablet 0 09/10/2021 Active Comment on above: TAKE 2 TABLETS BY MO UT ONCE DAILY WITH BREAKFAST Take [address] [facility] every morning. spironolactone 25 mg oral tablet (20 sources) Aldosterone Antagonist Start: 07-26-19 End: 06-20-19 26 take 1 tablet by mouth once daily spironolactone (ALDACTONE) 25 mg tablet Indications: Essential hypertension Take 1 tablet by mouth once daily. 90 tablet 3 06/19/2024 06/19/2025 Active Comment on above: Take 1 tablet by araceli th once daily Take 1 tablet by araceli th once daily. warfarin sodium 2.5 mg oral tablet (20 sources) Vitamin K Antagonist Start: 09-13-19 25 Warfarin (Jantoven) 2.5 mg Tablet Active 5 mg PO 1700 60 0 September 12, 2024 12:00am blood thinner Start: 02-16-2024 End: 03-24-2025 take 1 tablet by mouth once daily warfarin (COUMADIN) 2.5 mg tablet Take 1 tablet by mouth once daily. 90 tablet 1 04/09/2024 09/25/2024 Discontinued Completed/Discontinued Medications Medication Drug Class(es) Dates Sig [...] 2019 10:02am amLODIPine 5 mg oral tablet (20 sources) Dihydropyridine Calcium Channel Karis Start: 07-28-2019 [...] 2017 12:00am July 28, 2019 11:10am BP amoxicillin 875 mg / clavulanate 125 mg oral tablet (4 sources) Penicillin-class Antibacterial Start: 09-12-2024 End: 09-19-2024 Amoxicillin-Pot Clavulanate 875-125 mg Tablet Discontinued 1 {tbl} PO TWICE DAILY WITH MEALS 11 0 September 12, 2024 12:00am September 19, 2024 8:58am Take with food Start: 05-25-2022 End: 05-30-2022 take 1 tablet by mouth twice daily amoxicillin-clavulanic acid (AUGMENTIN) 875-125 mg per tablet Take 1 tablet by mouth twice daily for 5 days. 10 tablet 0 05/25/2022 05/30/2022 Active Comment on above: Take 1 tablet by arcaeli th twice daily for 5 days. apixaban 5 mg oral tablet (20 sources) Factor Xa Inhibitor Start: End: take 1 tablet by mouth twice daily Apixaban (Eliquis) 5 mg Tablet Discontinued 5 mg PO TWICE A DAY 60 30 0 December 18, 2021 1:00am December 28, 2021 10:26am Comment on above: Take 5 mg by mouth t wice daily. Take 1 tablet by araceli th twice daily. 120 actuat budesonide 0.16 [...] therapy completed) cephalexin 500 mg oral capsule (16 sources) Cephalosporin Antibacterial Start: End: take 1 [...] Comment on above: Take 1 tablet by araceli th once daily. docusate sodium 100 mg oral capsule (5 sources) Start: 023 End: take 1 capsule by mouth once daily Docusate Sodium (Dok) 100 mg capsule Discontinued 100 mg PO DAILY 20 September 22, 2022 12:00am September 10, 2024 1:24am doxycycline monohydrate 100 mg oral capsule (20 sources) Tetracycline-class Drug Start: End: take 1 capsule by mouth twice daily [...] Comment on above: Take 1 tablet by araceli twice daily for 5 days. escitalopram 10 mg oral tablet (20 sources) Serotonin Reuptake Inhibitor Start: End: take 1 tablet by mouth once daily escitalopram oxalate (LEXAPRO) 10 mg tablet Take 1 tablet by mouth once daily. 30 tablet 05/27/2023 11/29/2023 Discontinued (Changing Therapy/Dosage Form) Start: 08-24-2022 take 1 tablet by araceli th once daily escitalopram oxalate (LEXAPRO) 10 [...] Comment on above: Take 1 tablet by araceli th once daily Take 1 tablet by araceli th once daily. famotidine 20 mg oral tablet (16 sources) Histamine-2 Receptor Antagonist Start : 07-25 End: 12-28 take 1 tablet by mouth once daily Famotidine 20 MG tablet Discontinued 20 mg PO DAILY July 28, 2019 8:16pm December 28, 2021 10:23am stomach hydroCHLOROthiazide 25 mg oral tablet (8 sources) Thiazide Diuretic Start : 06-09 End: 07-27 take 1 tablet by mouth once daily Hydrochlorothiazide 25 mg tablet Discontinued 25 mg PO daily June 09, 2017 12:00am July 28, 2019 11:12am BP 200 actuat ipratropium bromide 0.017 mg/actuat metered dose inhaler (4 sources) Anticholinergic Start : 03-15 End: 09-10 Ipratropium Applegate (Atrovent Hfa) 17 mcg/actuation HFA aerosol inhaler Discontinued 2 NMA INHALATION Q8H 12.9 0 March 15, 2023 1:00am September 10, 2024 1:19am Start: 03-15-2023 take 1 puff(s) by in halation every eight hours Ipratropium Applegate (Atrovent Hfa) 17 mcg/actuation HFA aerosol inhaler Active 2 PUFF INHALATION Q8H 12.9 March 15, 2023 12:00am levoFLOXacin 500 mg oral tablet (15 sources) Quinolone Antimicrobial Start: 12-18-2021 End: 05-21-2022 take 1 tablet by mouth once daily Levofloxacin 500 mg Tablet Discontinued 500 mg PO DAILY@0600 6 6 0 December 18, 2021 1:00am December 28, 2021 10:20am Comment on above: TAKE 1 TABLET BY ARACELI TH ONCE DAILY AT 6AM FOR 6 DAYS Menthol / Zinc Oxide (18 sources) Start: 12-14-2021 End: 12-28-2021 Menthol-Zinc Oxide [...] APPLIC TOPICAL TWICE A DAY 1 August 17, 2019 12:00am December 14, 2021 [...] 2020 10:25am Menthol-Zinc Oxide 1 APPLIC ointment (6 sources) Start: 12-14-2021 End: 12-28-2021 Menthol-Zinc Oxide 1 APPLIC ointment Discontinued 1 NMA TOPICAL TWICE A DAY December 14, 2021 6:34pm December 28, 2021 10:26am skin Start: 08-17-2019 End: 12-14-2021 Menthol-Zinc Oxide 1 APPLIC ointment Discontinued 1 NMA TOPICAL TWICE A DAY 1 0 August 17, 2019 12:00am December 14, 2021 6:34pm nystatin 100 unt/mg topical powder (20 sources) Polyene Antifungal Start: 08-14-2019 End: 12-28-2021 Nystatin 1 APPLIC powder Discontinued 1 NMA TOPICAL TWICE A DAY December 14, 2021 6:34pm December 28, 2021 10:26am skin Start: 08-14-2019 End: 12-28-2021 Nystatin Discontinued 1 APPL IC TOPICAL TWICE A DAY December 14, 2021 5:34pm December 28, 2021 9:26am PARoxetine hydrochloride 40 mg oral tablet (20 sources) Serotonin Reuptake Inhibitor Start: 02-14-2024 End: 03-24-2025 take 1 tablet by mouth once daily PARoxetine (PAXIL) 40 mg tablet Indications: Adjustment disorder with mixed anxiety and depressed mood Take 1 tablet by mouth once daily 90 tablet 07/13/2024 09/25/2024 Discontinued Start: 01-02-2024 End: 02-14-2024 take 1 tablet [...] 2019 12:00am December 28, 2021 10:24am mood predniSONE 20 mg oral tablet (20 sources) Start: 02-07-2024 End: 09-10-2024 take 2 tablets by mouth once daily Prednisone 20 mg tablet Discontinued 40 mg PO DAILY 8 February 07, 2024 1:00am September 10, 2024 [...] 3 DAYS. tiotropium 0.018 mg inhalation powder (8 sources) Anticholinergic Start: 09-10-19 End: 01-13-20 take 1 capsule by inhalation once daily Tiotropium Applegate 18 MCG capsule, w/inhalation device Discontinued 18 ug IH DAILY September 09, 2017 12:00am January 12, 2018 3:22pm COPD Start: 09-09-2017 End: 01-12-2018 take 18 ug by inhalation once daily Tiotropium Applegate Discontinued 18 MCG IH DAILY September 08, 2017 11:00pm January 12, 2018 2:22pm traMADol hydrochloride 50 mg oral tablet (13 sources) Opioid Agonist Start: 09-22-2022 End: 09-10-2024 [...] HOURS NEEDED as needed for Mod-Severe Pain (4-1010) 30 7 0 July 25, 2018 12:00am July 31, 2018 12:00am August 05, 2018 12:08am Problems Active Problems Problem Classification Problem Date Documented Date Episodic/Chronic Acute cerebrovascular disease (20 sources) Cerebrovascular accident; Translations: [Cerebral infarction, unspecified] Onset: 12-23-2021 12-23-2021 Chronic Comment on above: left brainstem Acute myocardial infarction (20 sources) Myocardial infarction; Translations: [Non-ST elevation (NSTEMI) myocardial infarction] Onset: 12-18-2021 Chronic Adjustment disorders (20 sources) Adjustment disorder with mixed anxiety and depressed mood; Translations: [Adjustment disorder with mixed anxiety and depressed mood] Onset: 02-01-2017 02-01-2017 Chronic Anxiety disorders (20 sources) Anxiety; Translations: [Anxiety disorder, unspecified] Onset: 12-23-2021 12-23-2021 Chronic Aspiration pneumonitis; food/vomitus (9 sources) Aspiration pneumonia; Translations: [Pneumonitis due to inhalation of food and vomit] Onset: 09-16-2024 09-10-2024 Episodic Cancer of prostate (20 sources) [...] unspecified angina pectoris] Onset: 12-23-2021 12-23-2021 Chronic Congestive heart failure; nonhypertensive (17 sources) Heart failure, unspecified; Translations: [Acute exacerbation of chronic heart failure] Onset: 09-09-2024 09-10-2024 Chronic Coronary atherosclerosis and other heart disease (20 sources) Disorder of cardiovascular system; Translations: [Atherosclerotic heart disease of [place] coronary artery without angina pectoris] Onset: 12-17-2004 12-19-2014 Chronic Coronary atherosclerosis and other heart disease (1 source) Presence of coronary angioplasty implant and graft; Translations: [Presence of coronary angioplasty implant and graft] Onset: 09-16-2024 Episodic Diseases of white blood cells (6 sources) Leukocytosis; Translations: [Elevated white blood cell count, unspecified] Onset: 09-19-2024 09-16-2024 Chronic Disorders of lipid metabolism (20 sources) Hyperlipidemia; Translations: [Hyperlipidemia, unspecified] Onset: 12-17-2004 12-19-2014 Chronic E Codes: Fall (5 sources) Fall; Translations: [Unspecified fall, initial encounter] 09-22-2022 Episodic Esophageal disorders (20 sources) Gastroesophageal reflux disease; Translations: [Gastro-esophageal reflux disease without esophagitis] Onset: 12-23-2021 12-23-2021 Chronic Essential hypertension (20 sources) Essential hypertension; Translations: [Essential (primary) hypertension] Onset: 12-17-2004 12-19-2014 Chronic Fracture of lower limb (10 sources) Fracture of ankle; Translations: [Other fracture of right lower leg, initial encounter for closed fracture] 09-22-2022 Episodic Fracture of neck of femur (hip) (8 sources) Fracture of bone of hip region; Translations: [Fracture of unspecified part of neck of unspecified femur, initial encounter for closed fracture] 07-24-2018 Episodic Hypertension with complications and secondary hypertension (1 source) Hypertensive urgency ; Translations: [Hypertensive urgency] Chronic Mood disorders (20 sources) Depressive disorder; Translations: [Depression] Onset: 12-27-2008 12-27-2008 Chronic Mycoses (7 sources) Tinea cruris; Translations: [Tinea cruris] Onset: 09-16-2024 09-10-2024 Episodic Nonspecific chest pain (7 sources) Chest pain; Translations: [Chest pain, unspecified] Onset: 09-16-2024 09-10-2024 Episodic Other aftercare (1 source) Post-discharge follow-up; Translations: [Encounter for follow-up examination after completed treatment for conditions other than malignant neoplasm] Episodic Other aftercare (2 sources) Long-term current use of anticoagulant; Translations: [detention (current) use of anticoagulants] 02-16-2024 Episodic Other aftercare (6 sources) Anticoagulant control - finding; Translations: [Encounter for therapeutic drug level monitoring] 09-10-2024 Episodic Other aftercare (1 source) Encounter for therapeutic drug level monitoring; Translations: [Encounter for therapeutic drug level monitoring] Onset: 09-16-2024 Episodic Other aftercare (2 sources) detention (current) use of anticoagulants; Translations: [detention (current) use of anticoagulants] Onset: 06-29-2024 Episodic Other circulatory disease (20 sources) History of angioplasty; Translations: [Peripheral vascular angioplasty status with implants and grafts] Onset: 12-23-2021 12-23-2021 Chronic Other connective tissue disease (2 sources) Swelling of lower limb; Translations: [Other specified soft tissue disorders] 07-13-2024 Episodic Other connective tissue disease (1 source) Other specified soft tissue disorders; Translations: [Leg swelling] Onset: 07-13-2024 Episodic Other lower respiratory disease (8 sources) Dyspnea on exertion; Translations: [Other forms of dyspnea] 07-26-2019 Episodic Other lower respiratory disease (1 source) Hypoxemia; Translations: [Hypoxemia] 06-07-2023 Episodic Other lower respiratory disease (3 sources) Multiple nodules of lung; Translations: [Other nonspecific abnormal finding of lung field] 03-05-2024 Episodic Other lower respiratory disease (1 source) Hypoxia; Translations: [Hypoxemia] 03-27-2024 Episodic Other lower respiratory disease (6 sources) Respiratory insufficiency; Translations: [Other abnormalities of breathing] 09-10-2024 Episodic Other lower respiratory disease (1 source) Shortness of breath; Translations: [Shortness of breath] Onset: 09-19-2024 Episodic Other lower respiratory disease (1 source) Other abnormalities of breathing; Translations: [Other abnormalities of breathing] Onset: 09-16-2024 Episodic Other lower respiratory disease (1 source) [...] BMI 30-34.9] Onset: 02-14-2024 02-14-2024 Chronic Other nutritional; endocrine; and metabolic disorders (6 sources) Body mass index 25-29 - overweight; Translations: [Overweight] 09-10-2024 Episodic Other nutritional; endocrine; and metabolic disorders (1 source) Overweight; Translations: [Overweight] Onset: 09-16-2024 Episodic Other upper respiratory disease (20 sources) Paralysis of left vocal cord; Translations: [Paralysis of vocal cords and larynx, unilateral] Onset: 12-23-2021 12-23-2021 Chronic Other upper respiratory disease (20 sources) Paralysis of larynx; Translations: [Paralysis of vocal cords and larynx, unspecified] Onset: 01-04-2017 12-23-2021 Chronic Other upper respiratory disease (4 sources) Acute bronchospasm; Translations: [Acute bronchospasm] 03-15-2023 [...] Onset: 12-19-2014 12-19-2014 Chronic Residual codes; unclassified (8 sources) Central sleep apnea syndrome; Translations: [Primary central sleep apnea] 07-24-2018 Chronic Residual codes; unclassified (1 source) Primary central sleep apnea; Translations: [Unspecified sleep apnea] Chronic Residual codes; unclassified (1 source) Central sleep apnea in conditions classified elsewhere; Translations: [Central sleep apnea in conditions classified elsewhere] Onset: 09-16-2024 Chronic Residual codes; unclassified (4 sources) Altered mental status; Translations: [Altered mental status, unspecified] 09-16-2024 Episodic Residual codes; unclassified (2 sources) Altered mental status, unspecified; Translations: [Altered mental status, unspecified] Onset: 09-19-2024 Episodic Respiratory failure; insufficiency; arrest (adult) (4 sources) Chronic hypoxemic respiratory failure; Translations: [Chronic respiratory failure with hypoxia] Onset: 07-13-2024 03-05-2024 Chronic Screening and history of mental health and substance abuse codes (1 source) Ex-smoker; Translations: [Personal history of nicotine dependence] 03-05-2024 Episodic Thyroid disorders (20 sources) Acquired hypothyroidism; Translations: [Hypothyroidism, unspecified] Onset: 09-26-2012 03-30-2018 Chronic Unclassified (8 sources) left vocal cord paralysis 07-26-2019 Unclassified (1 source) PAD (peripheral artery disease) 07-13-2024 Unclassified (3 sources) Make an appointment to see Dr. Zaidi on 09/17/2024-have your INR rechecked Unclassified (3 sources) Call for an appointment Unclassified (1 source) lower ext neuropathy Unclassified (1 source) Chronic atrial fibrillation, unspecified; [...] Test Name Value Interpretation Reference Range Facility CNOV 09-25-2024 CNOV Office Visit ([facility] ) TYLOR PEDERSEN ([id number]) 1940 M Date Time Provider Department 09/25/24 11:00 AM PADDY ZAIDI During your visit today, we recorded the following information about you: Pulse Blood pressure Height 99/minute 110/71 1.778 m Paddy Zaidi MD 09/25/2024 4:20 PM Signed Subjective Adrian Pedersen is an 83-year-old male with a history of atrial fibrillation, heart failure, and anxiety, accompanied by his daughter who is providing history on his behalf, presenting for follow-up after recent hospitalizations. Atrial Fibrillation: - Recent hospitalization at [facility] for heart failure, and pneumonia. Known history of aftb - Previously on Eliquis, switched to Coumadin due to cost. - Last INR check in February; no recent monitoring. - Scheduled cardiology appointment in November. Heart Failure: - Recent hospitalization for heart failure. - Discharged on Lasix 40 mg BID, atenolol, and spironolactone. - Difficulty standing and walking; his live in aide assists with mobility. - Poor oral intake; minimal fluid consumption. The aide is worried about dehydration on the high Lasix dose particularly since he doesn't have fluid on the legs. Consult in hospital with Dr Muller, he has not seen him as an outpatel Anxiety: - History of anxiety and panic attacks. Sometimes severe. - buspirone 10 mg BID added at discharge, also given Rx for hydroxyzine. - On Paxi, previous Lexapro; has used lorazepam for acute anxiety episodes. Constitutional: (+) hypersomnia Ears/Nose/Mouth/Throat: (+) hearing loss Cardiovascular: (+) chest pain, (-) peripheral edema Gastrointestinal: (+) decreased appetite Genitourinary: (+) dark urine Musculoskeletal: (+) difficulty walking, (+) difficulty standing Neurological: (+) memory loss, (+) confusion Psychiatric: (+) anxiety, (+) panic attacks Objective Blood pressure 110/71, pulse 99, height 177.8 cm (5' 10), SpO2 99%. General: No acute distress. Resp: Lungs clear to auscultation. Diminished breath shound in bot bases., Heart irregular, no gallop Legs with trace edema. Excoriated skin Labs Elev alk phos, BNP 2490 INR 1.4 Tests Echo Complete W/ Contrast on 09-10-2024 Echo Complete W/ Contrast [facility] [address] [place] [address] Echo Complete W/ Contrast 09/10/24 1001 MR#: [id number] Acct: [id number] Name: TYLOR PEDERSEN Rep #: [id number] : 1940 83 From: [place] Muller MD Attending Dr: Dr. Aayush Sibley, Status: A DM IN Ordering Dr: Kristopher Valencia DO Date: 09/10/24 Location: U Sex: M C Admitted: 09/10/24 Reason For [...] cm LVPWd: 1.6 cm FS: 23.9 % - LAV(MOD-bp): 57.2 ml LVAd ap4: 23.6 cm2 SV(MOD-sp4): 29.7 ml LAV(MOD-bp) Indexed: 26.6 ml/m2 LVLd ap4: 7.2 cm SI(MOD-sp4): 13.8 ml/m2 LAV(MOD-sp2): 66.3 ml EDV(MOD-sp4): 61.7 ml LAV(MOD-sp4): 42.3 ml EDV(sp4-el): 65.4 ml LVAs ap4: 15.7 cm2 LVLs ap4: 6.5 cm ESV(MOD-sp4): 32.0 ml ESV(sp4-el): 32.5 ml EF(MOD-sp4): 48.2 % EF(sp4-el): 50.4 % - SV(sp4-el): 33.0 ml LA A4 area: 15.9 cm2 LA dimension(2D): 5.0 cm - RA A4 area: 21.1 cm2 Doppler Measurements Calculations MV E max larissa: 84.2 cm/sec Ao V2 max: 106.4 cm/sec LV V1 max: 79.3 cm/sec Ao max P.5 mmHg LV V1 max P (more content not included)... Normal [facility] Basic Metabolic Profile (BMP )on 09-24-2024 BUN Normal 4-19 [facility] Comment on above: Result Comment: Canc elled via OM: Order cancelled - Patient discharged Performed By: #### L 500.2500 ####[facility] [address] [place], [place], [address] BUN/CRE Normal 10-20 [facility] Comment on above: Result Comment: Canc elled via OM: Order cancelled - Patient discharged Performed By: #### L 500.2500 ####[facility] [address] [place], [address] Calcium Normal 7.6-11.0 [facility] Comment on above: Result Comment: Canc elled via OM: Order cancelled - Patient discharged Performed By: #### L 500.2500 ####[facility] [address] [place], [address] CL Normal 98-108 [facility] Comment on above: Result Comment: Canc elled via OM: Order cancelled - Patient discharged Performed By: #### L 500.2500 ####[facility] [address] [place], [address] CO2 Normal 21.0-32.0 [facility] Comment on above: Result Comment: Canc elled via OM: Order cancelled - Patient discharged Performed By: #### L 500.2500 ####[facility] [address] [place], [address] CREAT,SERUM Normal 0.70-1.20 [facility] Comment on above: Result Comment: Canc elled via OM: Order cancelled - Patient discharged Performed By: #### L 500.2500 ####[facility] [address] [place], [address] eGFR Normal >60 [facility] Comment on above: Result Comment: Canc elled via OM: Order cancelled - Patient discharged Performed By: #### L 500.2500 ####[facility] [address] [place], [address] GAP Normal 5-15 [facility] Comment on above: Result Comment: Canc elled via OM: Order cancelled - Patient discharged Performed By: #### L 500.2500 ####[facility] [address] [place], [address] GLU Normal 70-99 [facility] Comment on above: Result Comment: Canc elled via OM: Order cancelled - Patient discharged Performed By: #### L 500.2500 ####[facility] [address] [place], [address] Potassium Normal 3.3-5.1 [facility] Comment on above: Result Comment: Canc elled via OM: Order cancelled - Patient discharged Performed By: #### L 500.2500 ####[facility] [address] [place], [address] Basic Metabolic Profile (BMP) Normal 133-145 [facility] Comment on above: Result Comment: Canc elled via OM: Order cancelled - Patient discharged Performed By: #### L 500.2500 ####[facility] [address] [place], [address] Basic Metabolic Profile (BMP )on 09-23-2024 BUN Normal 4-19 [facility] Comment on above: Result Comment: Canc elled via OM: Order cancelled - Patient discharged Performed By: #### L 9000.0810 #### [facility] [address] [place], [address] BUN/CRE Normal 10-20 [facility] Comment on above: Result Comment: Canc elled via OM: Order cancelled - Patient discharged Performed By: #### L 9000.0810 #### [facility] [address] [place], [address] Calcium Normal 7.6-11.0 [facility] Comment on above: Result Comment: Canc elled via OM: Order cancelled - Patient discharged Performed By: #### L 9000.0810 #### [facility] [address] [place], [address] CL Normal 98-108 [facility] Comment on above: Result Comment: Canc elled via OM: Order cancelled - Patient discharged Performed By: #### L 9000.0810 #### [facility] [address] [place], [address] CO2 Normal 21.0-32.0 [facility] Comment on above: Result Comment: Canc elled via OM: Order cancelled - Patient discharged Performed By: #### L 9000.0810 #### [facility] [address] [place], [address] CREAT,SERUM Normal 0.70-1.20 [facility] Comment on above: Result Comment: Canc elled via OM: Order cancelled - Patient discharged Performed By: #### L 9000.0810 #### [facility] [address] [place], [address] eGFR Normal >60 [facility] Comment on above: Result Comment: Canc elled via OM: Order cancelled - Patient discharged Performed By: #### L 9000.0810 #### [facility] [address] [place], [address] GAP Normal 5-15 [facility] Comment on above: Result Comment: Canc elled via OM: Order cancelled - Patient discharged Performed By: #### L 9000.0810 #### [facility] [address] [place], [address] GLU Normal 70-99 [facility] Comment on above: Result Comment: Canc elled via OM: Order cancelled - Patient discharged Performed By: #### L 9000.0810 #### [facility] [address] [place], [address] Potassium Normal 3.3-5.1 [facility] Comment on above: Result Comment: Canc elled via OM: Order cancelled - Patient discharged Performed By: #### L 9000.0810 #### [facility] [address] [place], [address] Basic Metabolic Profile (BMP) Normal 133-145 [facility] Comment on above: Result Comment: Canc elled via OM: Order cancelled - Patient discharged Performed By: #### L 9000.0810 #### [facility] [address] [place], [address] Basic Metabolic Profile (BMP )on 09-22-2024 BUN Normal 4-19 [facility] Comment on above: Result Comment: Canc elled via OM: Order cancelled - Patient discharged Performed By: #### L 9000.0810 #### [facility] [address] [place], [address] BUN/CRE Normal 10-20 [facility] Comment on above: Result Comment: Canc elled via OM: Order cancelled - Patient discharged Performed By: #### L 9000.0810 #### [facility] [address] [place], [address] Calcium Normal 7.6-11.0 [facility] Comment on above: Result Comment: Canc elled via OM: Order cancelled - Patient discharged Performed By: #### L 9000.0810 #### [facility] [address] [place], [address] CL Normal 98-108 [facility] Comment on above: Result Comment: Canc elled via OM: Order cancelled - Patient discharged Performed By: #### L 9000.0810 #### [facility] [address] [place], [address] CO2 Normal 21.0-32.0 [facility] Comment on above: Result Comment: Canc elled via OM: Order cancelled - Patient discharged Performed By: #### L 9000.0810 #### [facility] [address] [place], [address] CREAT,SERUM Normal 0.70-1.20 [facility] Comment on above: Result Comment: Canc elled via OM: Order cancelled - Patient discharged Performed By: #### L 9000.0810 #### [facility] [address] [place], [address] eGFR Normal >60 [facility] Comment on above: Result Comment: Canc elled via OM: Order cancelled - Patient discharged Performed By: #### L 9000.0810 #### [facility] [address] [place], [address] GAP Normal 5-15 [facility] Comment on above: Result Comment: Canc elled via OM: Order cancelled - Patient discharged Performed By: #### L 9000.0810 #### [facility] [address] [place], [address] GLU Normal 70-99 [facility] Comment on above: Result Comment: Canc elled via OM: Order cancelled - Patient discharged Performed By: #### L 9000.0810 #### [facility] [address] [place], [address] Potassium Normal 3.3-5.1 [facility] Comment on above: Result Comment: Canc elled via OM: Order cancelled - Patient discharged Performed By: #### L 9000.0810 #### [facility] [address] [place], [address] Basic Metabolic Profile (BMP) Normal 133-145 [facility] Comment on above: Result Comment: Canc elled via OM: Order cancelled - Patient discharged Performed By: #### L 9000.0810 #### [facility] [address] [place], [address] Basic Metabolic Profile (BMP )on 09-21-2024 BUN Normal 4-19 [facility] Comment on above: Result Comment: Canc elled via OM: Order cancelled - Patient discharged Performed By: #### L 501.9985 #### [facility] [address] [place], [address] BUN/CRE Normal 10-20 [facility] Comment on above: Result Comment: Canc elled via OM: Order cancelled - Patient discharged Performed By: #### L 501.9985 #### [facility] [address] [place], [address] Calcium Normal 7.6-11.0 [facility] Comment on above: Result Comment: Canc elled via OM: Order cancelled - Patient discharged Performed By: #### L 501.9985 #### [facility] [address] [place], [address] CL Normal 98-108 [facility] Comment on above: Result Comment: Canc elled via OM: Order cancelled - Patient discharged Performed By: #### L 501.9985 #### [facility] [address] [place], [address] CO2 Normal 21.0-32.0 [facility] Comment on above: Result Comment: Canc elled via OM: Order cancelled - Patient discharged Performed By: #### L 501.9985 #### [facility] [address] [place], [address] CREAT,SERUM Normal 0.70-1.20 [facility] Comment on above: Result Comment: Canc elled via OM: Order cancelled - Patient discharged Performed By: #### L 501.9985 #### [facility] [address] [place], [address] eGFR Normal >60 [facility] Comment on above: Result Comment: Canc elled via OM: Order cancelled - Patient discharged Performed By: #### L 501.9985 #### [facility] [address] [place], [address] GAP Normal 5-15 [facility] Comment on above: Result Comment: Canc elled via OM: Order cancelled - Patient discharged Performed By: #### L 501.9985 #### [facility] [address] [place], [address] GLU Normal 70-99 [facility] Comment on above: Result Comment: Canc elled via OM: Order cancelled - Patient discharged Performed By: #### L 501.9985 #### [facility] [address] [place], [address] Potassium Normal 3.3-5.1 [facility] Comment on above: Result Comment: Canc elled via OM: Order cancelled - Patient discharged Performed By: #### L 501.9985 #### [facility] [address] [place], [address] Basic Metabolic Profile (BMP) Normal 133-145 [facility] Comment on above: Result Comment: Canc elled via OM: Order cancelled - Patient discharged Performed By: #### L 501.9985 #### [facility] [address] [place], [address] Basic Metabolic Profile (BMP )on 09-20-2024 BUN Normal 4-19 [facility] Comment on above: Result Comment: Canc elled via OM: Order cancelled - Patient discharged Performed By: #### L 300.3900, L100.0100, L500.2500 ####[facility] [address] [place], [address] BUN/CRE Normal 10-20 [facility] Comment on above: Result Comment: Canc elled via OM: Order cancelled - Patient discharged Performed By: #### L 300.3900, L100.0100, L500.2500 ####[facility] [address] [place], [address] Calcium Normal 7.6-11.0 [facility] Comment on above: Result Comment: Canc elled via OM: Order cancelled - Patient discharged Performed By: #### L 300.3900, L100.0100, L500.2500 ####[facility] [address] [place], [address] CL Normal 98-108 [facility] Comment on above: Result Comment: Canc elled via OM: Order cancelled - Patient discharged Performed By: #### L 300.3900, L100.0100, L500.2500 ####[facility] [address] [place], [address] CO2 Normal 21.0-32.0 [facility] Comment on above: Result Comment: Canc elled via OM: Order cancelled - Patient discharged Performed By: #### L 300.3900, L100.0100, L500.2500 ####[facility] [address] [place], [address] CREAT,SERUM Normal 0.70-1.20 [facility] Comment on above: Result Comment: Canc elled via OM: Order cancelled - Patient discharged Performed By: #### L 300.3900, L100.0100, L500.2500 ####[facility] [address] [place], [address] eGFR Normal >60 [facility] Comment on above: Result Comment: Canc elled via OM: Order cancelled - Patient discharged Performed By: #### L 300.3900, L100.0100, L500.2500 ####[facility] [address] [place], [address] GAP Normal 5-15 [facility] Comment on above: Result Comment: Canc elled via OM: Order cancelled - Patient discharged Performed By: #### L 300.3900, L100.0100, L500.2500 ####[facility] [address] [place], [address] GLU Normal 70-99 [facility] Comment on above: Result Comment: Canc elled via OM: Order cancelled - Patient discharged Performed By: #### L 300.3900, L100.0100, L500.2500 ####[facility] [address] [place], [address] Potassium Normal 3.3-5.1 [facility] Comment on above: Result Comment: Canc elled via OM: Order cancelled - Patient discharged Performed By: #### L 300.3900, L100.0100, L500.2500 ####[facility] [address] [place], [address] Basic Metabolic Profile (BMP) Normal 133-145 [facility] Comment on above: Result Comment: Canc elled via OM: Order cancelled - Patient discharged Performed By: #### L 300.3900, L100.0100, L500.2500 ####[facility] [address] [place], [address] CBC W/Diff, Automatedon 08-1 Absolute Neut Normal 2.0-7.7 [facility] Comment on above: Result Comment: Canc elled via OM: Order cancelled - Patient discharged Performed By: #### L 300.3900, L100.0100, L500.2500 ####[facility] [address] [place], [address] HCT Normal 40-54 [facility] Comment on above: Result Comment: Canc elled via OM: Order cancelled - Patient discharged Performed By: #### L 300.3900, L100.0100, L500.2500 ####[facility] [address] [place], [address] HGB Normal 13.0-16.5 [facility] Comment on above: Result Comment: Canc elled via OM: Order cancelled - Patient discharged Performed By: #### L 300.3900, L100.0100, L500.2500 ####[facility] [address] [place], [address] MCH Normal 27.0-32.0 [facility] Comment on above: Result Comment: Canc elled via OM: Order cancelled - Patient discharged Performed By: #### L 300.3900, L100.0100, L500.2500 ####[facility] [address] [place], [address] MCHC Normal 32-36 [facility] Comment on above: Result Comment: Canc elled via OM: Order cancelled - Patient discharged Performed By: #### L 300.3900, L100.0100, L500.2500 ####[facility] [address] [place], [address] MCV Normal 80-94 [facility] Comment on above: Result Comment: Canc elled via OM: Order cancelled - Patient discharged Performed By: #### L 300.3900, L100.0100, L500.2500 ####[facility] [address] [place], [address] NEUT% Normal 47-70 [facility] Comment on above: Result Comment: Canc elled via OM: Order cancelled - Patient discharged Performed By: #### L 300.3900, L100.0100, L500.2500 ####[facility] [address] [place], [address] PLT Normal 150-450 [facility] Comment on above: Result Comment: Canc elled via OM: Order cancelled - Patient discharged Performed By: #### L 300.3900, L100.0100, L500.2500 ####[facility] [address] [place], [address] RBC Normal 4.6-6.2 [facility] Comment on above: Result Comment: Canc elled via OM: Order cancelled - Patient discharged Performed By: #### L 300.3900, L100.0100, L500.2500 ####[facility] [address] [place], [address] RDW CV Normal 11.6-14.6 [facility] Comment on above: Result Comment: Canc elled via OM: Order cancelled - Patient discharged Performed By: #### L 300.3900, L100.0100, L500.2500 ####[facility] [address] [place], [address] RDW SD Normal 35.1-43.9 [facility] Comment on above: Result Comment: Canc elled via OM: Order cancelled - Patient discharged Performed By: #### L 300.3900, L100.0100, L500.2500 ####[facility] [address] [place], [address] WBC Normal 4.4-11.0 [facility] Comment on above: Result Comment: Canc elled via OM: Order cancelled - Patient discharged Performed By: #### L 300.3900, L100.0100, L500.2500 ####[facility] [address] [place], [address] [facility] 09-20-[address] [facility] Telephone (POOJAWAPATY) TYLOR PEDERSEN ([id number]) 1940 M Date Time Provider Department 09/20/24 PADDY ZAIDI During your visit today, we recorded the following information about you: Cassandra Ann LPN 09/20/2024 1:48 PM Signed Received 09/20/[address] [facility]. Placed in provider's inbox for review. Route to [place] for scanning. Altered mental status hallucination/delusion Allergies As of Date: 09/20/2024 Noted Allergy Reaction ASPIRIN 04/19/2018 16 - Unknown OXYCODONE 04/19/2018 14 - Other: See Comments PERCODAN (OXYCODONE-ASPIRIN) 12/17/2004 1 - Mental Status Change Date Reviewed: 09/09/2024 Reviewed by: Daina Sampson, RN - Fully Assessed Reason for Visit: Received Outside Medical Records [[id number]] Cmt: [facility] Discharge summary 09/19/2024 Encephalopathy Prescriptions as of 09/20/2024 - levothyroxine (SYNTHROID) 50 mcg tablet Take [...] once daily. 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.9] 06/22/2021 Abnormal electrocardiogram [R94.31] 10/19/2017 Anxiety [F41.9] 12/23/2021 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/19/2017 Cerebrovascular accident (CVA) (HCC) [I63.9] 12/23/2021 [...] BMI 30-34.9 [E66.811] 02/14/2024 Encounter Status:Closed by CASSANDRA ANN on 09/20/24 Normal [facility] Prothrombin Time w/INRon INR Normal [facility] Comment on above: Result Comment: Canc elled via OM: Order cancelled - Patient discharged Performed By: #### L 300.3900, L100.0100, L500.2500 ####[facility] [address] [place], [address] PROTIME Normal 11.7-14.9 [facility] Comment on above: Result Comment: Canc elled via OM: Order cancelled - Patient discharged Performed By: #### L 300.3900, L100.0100, L500.2500 ####[facility] [address] [place], [address] Absolute lymphocyte countOrd ered By: Trevor Burton on 09-19-2024 Lymphocytes Auto (Unsp spec) [#/Vol] 0.77 10*3/uL Low 0.83-4.51 [facility] Absolute neutrophil countOrd ered By: Trevor Burton on 09-19-2024 Neutrophils (Bld) [#/Vol] 8.3 10*3/uL High 2.0-7.7 [facility] Anion gap in Serum or Plasma Ordered By: Trevor Burton on 09-19-2024 Anion gap [Moles/Vol] 10 mmol/L 5-15 [facility] Automated lymphocyte count a s percentage of total leukocytesOrdered By: Trevor Burton on 09-19-2024 Lymphocytes/100 WBC Auto (Unsp spec) 7.5 % Low 19-41 [facility] BUN/creatinine ratioOrdered By: Trevor Burton on 09-19-2024 Urea nitrogen/Creatinine [Mass ratio] 32.3 mg/mg High 10-20 [facility] Basic Metabolic Profile (BMP )on 09-19-2024 BUN/CRE 32.3 RATIO High - [facility] Comment on above: Performed By: #### L 9000.0810 #### [facility] [address] [place], [address] Calcium [Mass/Vol] 8.7 mg/dL Normal 7.6-11.0 [facility] Comment on above: Performed By: #### L 9000.0810 #### [facility] [address] [place], [address] Chloride [Moles/Vol] 98 mmol/L Normal 98-108 [facility] Comment on above: Performed By: #### L 9000.0810 #### [facility] [address] [place], [address] CO2 [Moles/Vol] 30.4 mmol/L Normal 21.0-32.0 [facility] Comment on above: Performed By: #### L 9000.0810 #### [facility] [address] [place], [address] Creatinine [Mass/Vol] 0.74 mg/dL Normal 0.70-1.20 [facility] Comment on above: Performed By: #### L 9000.0810 #### [facility] [address] [place], [address] ECRCL 78.36 ml/min Normal 50-250 [facility] Comment on above: Performed By: #### L 9000.0810 #### [facility] [address] [place], [address] GAP 10 Normal 5-15 [facility] Comment on above: Performed By: #### L 9000.0810 #### [facility] [address] [place], [address] GFR/1.73 sq M.predicted among non-blacks MDRD (S/P/Bld) [Vol rate/Area] 89 mL/min/{1.73_m2} Normal >60 [facility] Comment on above: Result Comment: mL/m in/1.73m2 CKD-EPI Creatinine Equation (2020) Performed By: #### L 9000.0810 #### [facility] [address] [place], [address] Glucose [Mass/Vol] 93 mg/dL Normal 70-99 [facility] Comment on above: Performed By: #### L 9000.0810 #### [facility] [address] [place], [address] Potassium [Moles/Vol] 3.9 mmol/L Normal 3.3-5.1 [facility] Comment on above: Performed By: #### L 9000.0810 #### [facility] [address] [place], [address] Sodium [Moles/Vol] 138 mmol/L Normal 133-145 [facility] Comment on above: Performed By: #### L 9000.0810 #### [facility] [address] [place], [address] Urea nitrogen [Mass/Vol] 24 mg/dL High 4-19 [facility] Comment on above: Performed By: #### L 9000.0810 #### [facility] [address] [place], [address] Basophil percentageOrdered B y: Trevor Burton on 09-19-2024 Basophils/100 WBC (Bld) 0.4 % 0-1 [facility] CBC W/Diff, Automatedon 09-07-2024 Absolute Lymph 0.77 X10 3/uL Low 0.83-4.51 [facility] Comment on above: Performed By: #### L 501.9985 #### [facility] [address] [place], [address] Absolute Neut 8.3 X10 3/uL High 2.0-7.7 [facility] Comment on above: Performed By: #### L [id number] #### [facility] [address] [place], [address] Basophils/100 WBC (Bld) 0.4 % Normal 0-1 [facility] Comment on above: Performed By: #### L 501.9985 #### [facility] [address] [place], [address] Eosinophils/100 WBC (Bld) 3.9 % Normal 0-5 [facility] Comment on above: Performed By: #### L 501.9985 #### [facility] [address] [place], [address] Erythrocyte distribution width (RBC) [Ratio] 13.4 % Normal 11.6-14.6 [facility] Comment on above: Performed By: #### L 501.9985 #### [facility] [address] [place], [address] Hematocrit (Bld) [Volume fraction] 39.4 % Low 40-54 [facility] Comment on above: Performed By: #### L [id number] #### [facility] [address] [place], [address] Hemoglobin (Bld) [Mass/Vol] 12.3 g/dL Low 13.0-16.5 [facility] Comment on above: Performed By: #### L 501.9985 #### [facility] [address] [place], [address] IG% 1.400 High 0.0-0.9 [facility] Comment on above: Result Comment: IG% - Immature Granulocytes (promyelocytes, myelocytes and metamyelocytes) > 1% indicates that a LEFT SHIFT is Present. Performed By: #### L 501.9985 #### [facility] [address] [place], [address] Lymphocytes/100 WBC (Bld) 7.5 % Low 19-41 [facility] Comment on above: Performed By: #### L 501.9985 #### [facility] [address] [place], [address] MCH (RBC) [Entitic mass] 30.2 pg Normal 27.0-32.0 [facility] Comment on above: Performed By: #### L 501.9985 #### [facility] [address] [place], [address] MCHC (RBC) [Mass/Vol] 31.2 g/dL Low 32-36 [facility] Comment on above: Performed By: #### L [id number] #### [facility] [address] [place], [address] MCV (RBC) [Entitic vol] 96.8 fL High 80-94 [facility] Comment on above: Performed By: #### L 501.9985 #### [facility] [address] [place], [address] Monocytes/100 WBC (Bld) 6.4 % Normal 0-10 [facility] Comment on above: Performed By: #### L 501.9985 #### [facility] [address] [place], [address] Neutrophils/100 WBC (Bld) 80.4 % High 47-70 [facility] Comment on above: Performed By: #### L 501.9985 #### [facility] [address] [place], [address] Nucleated RBC (Bld) [#/Vol] 0 10*3/uL Normal 0-5 [facility] Comment on above: Performed By: #### L [id number] #### [facility] [address] [place], [address] Platelet mean volume (Bld) [Entitic vol] 9.6 fL Normal 6.2-12.0 [facility] Comment on above: Performed By: #### L 501.9985 #### [facility] [address] [place], [address] Platelets (Bld) [#/Vol] 171 10*3/uL Normal 150-450 [facility] Comment on above: Performed By: #### L 501.9985 #### [facility] [address] [place], [address] RBC (Bld) [#/Vol] 4.07 10*6/uL Low 4.6-6.2 [facility] Comment on above: Performed By: #### L 501.9985 #### [facility] [address] [place], [address] RDW SD 48.2 fl High 35.1-43.9 [facility] Comment on above: Performed By: #### L [id number] #### [facility] [address] [place], [address] WBC (Bld) [#/Vol] 10.3 10*3/uL Normal 4.4-11.0 [facility] Comment on above: Performed By: #### L 501.9985 #### [facility] [address] [place], [address] Carbon dioxide, total [Moles /volume] in Central venous bloodOrdered By: Trevor Burton on 09-19-2024 CO2 [Moles/Vol] 30.4 mmol/L 21.0-32.0 [facility] Chloride assayOrdered By: Archie Burton on 09-19-2024 Chloride [Moles/Vol] 98 mmol/L 98-108 [facility] Discharge Instructionon 09-07 Discharge Instruction [facility] Medical Records Department [address] [place] [address] Instructions for Home/Discharge Instructions 09/19/24 0857 MR#: [id number] Acct: [id number] Name: TYLOR PEDERSEN Rep #: [id number] : 1940 83 From: Trevor Burton MD PCP: Dr. Shayne Zaidi MD Status:ADM MARICARMEN Discharge Instructions DC O2, CPAP, BIPAP needs Home O2 Discharge instructions: Yes Type of respiratory needs?: Oxygen Oxygen frequency: Continuous Continuous oxygen liters per minute: 3 Dressing / Incision Discharge Activity: Return to Normal Activity Weight Bearing Status: Weight bearing as tolerated Dressing / Incision Call your doctor if you observe: Fever of 101 or Higher, Coldness, Increased Pain, Numbness or Tingling, Change in Color, Inability to urinate, Inability to have a bowel movement, Shortness of breath, Dizziness, Fainting spells, Swelling in the ankles, Chest pain, Prolonged hiccupping, Increased palpitations (irregular heartbeat) and Calf discomfort Follow Up Care When: IN 2 WEEKS Test Results: Test results from this visit will be discussed in further detail at your follow-up appointment, if applicable. Discharge Plan Admission Admit Date/Time: 09/16/24 21:19 Primary Reason for Your Visit: Delirium, altered mental status Attending Provider: Trevor Burton Primary Care Provider: Shayne Zaidi Consulting Providers: Olivia Walters; Judit Rock; Trixie Jeronimo; Ant Espinoza; Darius Tapia; German Perera; Luis Antonio Suarez; KEVIN BEARD; Aga Servin; Susana Gonzales; Stan Mays; Sweetie Rowe; Maikel Morocho; Nerissa Lebron; Denise Aparicio; Nato Rivera; Eden Matthew; Jake Espinoza; Samson Richard; Ernesto Reeves; John Calhoun; Yahairaforest Segura; Eulogio Mitchell; Selam Monique; Tevin Shin; Karma Cabrera; Gonzalo Goyal Discharge Orders/Prescriptions Prescriptions: New losartan 50 mg Tablet 25 mg PO DAILY Qty: 30 0RF buspirone 10 mg tablet 10 mg PO BID 30 Days Qty: 60 0RF hydroxyzine HCl 25 mg tablet 25 mg PO TID PRN (Reason: anxiety) Qty: 20 0RF Continued levothyroxine 50 MCG tablet 50 mcg PO DAILY atorvastatin 40 MG tablet 40 mg PO QHS spironolactone 25 MG tablet 25 mg PO DAILY aspirin 81 MG tablet,chewable 81 mg [...] 40 mg tablet 40 mg PO DAILY warfarin [Jantoven] 2.5 mg Tablet 5 mg PO 1700 Qty: 60 0RF atenolol 50 mg Tablet 50 mg PO DAILY Qty: 30 0RF furosemide [Lasix] 40 mg tablet 40 mg PO BID Qty: 60 0RF Discontinued potassium chloride 10 mEq tablet extended release 20 meq PO DAILY Patient Comments: TAKE 2 TABLETS BY MOUTH ONCE DAILY WITH BREAKFAST amoxicillin-pot clavulanate 875-125 mg Tablet 1 tab PO BIDCM Qty: 11 0RF Rx Instructions: Take with food Referrals / Follow Up: Shayne Zaidi MD [Primary Care Provider] - 09/25/24 11:00 am Milton Fagan MD [Non-Staff -Ordering Privileges] - Within 1 Month (lower ext neuropathy) Disposition Disposition (needs filled in before D/C Order can be placed): Home, Self Care 09/19/24 1150 Trevor Burton MD CC: Denise Aparicio; Susana Gonzales; Eulogio Mitchell; Trixie Jeronimo MD; Nerissa Lebron MD; Maikel Morocho MD; Ant Espinoza MD; Dr. Edison Beard MD; Dr. Judit Rock MD; Dr. Olivia Walters MD; Dr. Nato Rivera MD; Dr. Eden Matthew MD; Dr. Samson Richard MD; Dr. Jake Espinoza MD; Dr. Shayne Zaidi MD; Dr. German Perera MD; Dr. Ernesto Reeves DO; Dr. Philippe Syed MD; Dr. John Calhoun MD; Dr. Selam Monique MD; Dr. Tevin Shin MD; Dr. Karma Cabrera MD; Luis Antonio Suarez MD; Darius Tapia MD; Aga Servin DO; Stan Mays MD; Sweetie Rowe DO; Gonzalo Goyal MD Signed Normal [facility] Eosinophil percentageOrdered By: Trevor Burton on 09-19-2024 Eosinophils/100 WBC (Bld) 3.9 % 0-5 [facility] Erythrocyte distribution wid th ratioOrdered By: Trevor Burton on 09-19-2024 Erythrocyte distribution width (RBC) [Ratio] 13.4 % 11.6-14.6 [facility] Erythrocyte distribution wid th standard deviationOrdered By: Trevor Burton on 09-19-2024 Erythrocyte distribution width (RBC) [Ratio] 48.2 fl High 35.1-43.9 [facility] Glomerular filtration rate ( GFR) estimation/1.73 sq m using serum, plasma, or whole bOrdered By: Trevor Burton on 09-19-2024 GFR/1.73 sq M.predicted among non-blacks MDRD (S/P/Bld) [Vol rate/Area] 89 mL/min/{1.73_m2} >60 [facility] Comment on above: mL/min/1.73m2 CKD-EP I Creatinine Equation (2020) Hematocrit Auto (Bld) [Volum e fraction]Ordered By: Trevor Burton on 09-19-2024 Hematocrit (Bld) [Volume fraction] 39.4 % Low 40-54 [facility] Hemoglobin measurementOrdere d By: Trevor Burton on 09-19-2024 Hemoglobin (Bld) [Mass/Vol] 12.3 g/dL Low 13.0-16.5 [facility] Immature granulocytes/100 WB C Auto (Bld)Ordered By: Trevor Burton on 09-19-2024 Immature granulocytes/100 WBC (Bld) 1.400 % High 0.0-0.9 [facility] Comment on above: IG% - Immature Granu locytes (promyelocytes, myelocytes and metamyelocytes) > 1% indicates that a LEFT SHIFT is Present. International normalized rat io (INR) calculationOrdered By: Trevor Burton on 09-19-2024 INR Coag (Bld) [Relative time] 2.1 {INR} [facility] MCV (mean corpuscular volume ) determinationOrdered By: Trevor Burton on 09-19-2024 MCV (RBC) [Entitic vol] 96.8 fL High 80-94 [facility] Magnesiumon 09-19-2024 Magnesium [Mass/Vol] 2.5 mg/dL High 1.5-2.2 [facility] Comment on above: Performed By: #### L 9000.0810 #### [facility] [address] [place], [place], [address] Magnesium measurement (mass/ volume)Ordered By: Kristopher Diamond on 09-19-2024 Magnesium (Unsp spec) [Mass/Vol] 2.5 mg/dL High 1.5-2.2 [facility] Mean corpuscular hemoglobin (MCH) determinationOrdered By: Trevor Burton on 09-19-2024 MCH (RBC) [Entitic mass] 30.2 pg 27.0-32.0 [facility] Mean corpuscular hemoglobin concentration (MCHC) determinationOrdered By: Trevor Burton on 09-19-2024 MCHC (RBC) [Mass/Vol] 31.2 g/dL Low 32-36 [facility] Mean platelet volume determi nationOrdered By: Trevor Burton on 09-19-2024 Platelet mean volume (Bld) [Entitic vol] 9.6 fL 6.2-12.0 [facility] Monocyte percentageOrdered B y: Trevor Burton on 09-19-2024 Monocytes/100 WBC (Bld) 6.4 % 0-10 [facility] Neutrophil percentageOrdered By: Trevor Burton on 09-19-2024 Neutrophils/100 WBC (Bld) 80.4 % High 47-70 [facility] Nucleated red blood cell per centageOrdered By: Trevor Burton on 09-19-2024 Nucleated RBC/100 WBC (Bld) [Ratio] 0 % 0-5 [facility] Platelet countOrdered By: Archie Burton on 09-19-2024 Platelets (Bld) [#/Vol] 171 10*3/uL 150-450 [facility] Potassium measurement (mass/ volume)Ordered By: Trevor Burton on 09-19-2024 Potassium (Unsp spec) [Mass/Vol] 3.9 mmol/L 3.3-5.1 [facility] Prothrombin Time w/INRon INR Coag (PPP) [Relative time] 2.1 {INR} Normal [facility] Comment on above: Performed By: #### L 501.9985 #### [facility] [address] [place], [address] Prothrombin timeOrdered By: Trevor Burton on 09-19-2024 PT Coag (PPP) [Time] 24.4 s High 11.7-14.9 [facility] Comment on above: Performed By: #### L 501.9985 #### [facility] [address] [place], [address] RBC Auto (Bld) [#/Vol]Ordere d By: Trevor Burton on 09-19-2024 RBC (Bld) [#/Vol] 4.07 10*6/uL Low 4.6-6.2 [facility] Serum creatinine measurement (mass/volume)Ordered By: Trevor Burton on 09-19-2024 Creatinine [Mass/Vol] 0.74 mg/dL 0.70-1.20 [facility] Serum glucose measurement (m ass/volume)Ordered By: Trevor Burton on 09-19-2024 Glucose [Mass/Vol] 93 mg/dL 70-99 [facility] Serum or plasma calcium regan urement (mass/volume)Ordered By: Trevor Burton on 09-19-2024 Calcium [Mass/Vol] 8.7 mg/dL 7.6-11.0 [facility] Serum or plasma urea nitroge n measurement (mass/volume)Ordered By: Trevor Burton on 09-19-2024 Urea nitrogen [Mass/Vol] 24 mg/dL High 4-19 [facility] Sodium levelOrdered By: Mary Burton on 09-19-2024 Sodium [Moles/Vol] 138 mmol/L 133-145 [facility] White blood cell (WBC) count Ordered By: Trevor Burton on 09-19-2024 WBC (Bld) [#/Vol] 10.3 10*3/uL 4.4-11.0 [facility] Basic Metabolic Profile (BMP )on 09-18-2024 BUN/CRE 30.5 RATIO High 10-20 [facility] Comment on above: Order Comment: Comme nts: NPO at PA prior to lipid panel Performed By: #### L 9000.0810 #### [facility] [address] [place], [address] Calcium [Mass/Vol] 8.7 mg/dL Normal 7.6-11.0 [facility] Comment on above: Order Comment: Comme nts: NPO at [place] prior to lipid panel Performed By: #### L 9000.0810 #### [facility] [address] [place], [address] Chloride [Moles/Vol] 98 mmol/L Normal 98-108 [facility] Comment on above: Order Comment: Comme nts: NPO at [place] prior to lipid panel Performed By: #### L 9000.0810 #### [facility] [address] [place], [address] CO2 [Moles/Vol] 29.9 mmol/L Normal 21.0-32.0 [facility] Comment on above: Order Comment: Comme nts: NPO at [place] prior to lipid panel Performed By: #### L 9000.0810 #### [facility] [address] [place], [address] Creatinine [Mass/Vol] 0.83 mg/dL Normal 0.70-1.20 [facility] Comment on above: Order Comment: Comme nts: NPO at [place] prior to lipid panel Performed By: #### L 9000.0810 #### [facility] [address] [place], [address] ECRCL 76.05 ml/min Normal 50-250 [facility] Comment on above: Order Comment: Comme nts: NPO at [place] prior to lipid panel Performed By: #### L 9000.0810 #### [facility] [address] [place], [address] GAP 9 Normal 5-15 [facility] Comment on above: Order Comment: Comme nts: NPO at [place] prior to lipid panel Performed By: #### L 9000.0810 #### [facility] [address] [place], [address] GFR/1.73 sq M.predicted among non-blacks MDRD (S/P/Bld) [Vol rate/Area] 86 mL/min/{1.73_m2} Normal >60 [facility] Comment on above: Order Comment: Comme nts: NPO at [place] prior to lipid panel Result Comment: mL/m in/1.73m2 CKD-EPI Creatinine Equation (2020) Performed By: #### L 9000.0810 #### [facility] [address] [place], [address] Glucose [Mass/Vol] 107 mg/dL High 70-99 [facility] Comment on above: Order Comment: Comme nts: NPO at [place] prior to lipid panel Performed By: #### L 900.0810 #### [facility] [address] [place], [address] Potassium [Moles/Vol] 4.1 mmol/L Normal 3.3-5.1 [facility] Comment on above: Order Comment: Comme nts: NPO at [place] prior to lipid panel Performed By: #### L 8999.0810 #### [facility] [address] [place], [address] Sodium [Moles/Vol] 137 mmol/L Normal 133-145 [facility] Comment on above: Order Comment: Comme nts: NPO at [place] prior to lipid panel Performed By: #### L 900.0810 #### [facility] [address] [place], [address] Urea nitrogen [Mass/Vol] 25 mg/dL High 4-19 [facility] Comment on above: Order Comment: Comme nts: NPO at [place] prior to lipid panel Performed By: #### L 9000.0810 #### [facility] [address] [place], [address] CBC W/Diff, Automatedon 09-07 Absolute Lymph 0.78 X10 3/uL Low 0.83-4.51 [facility] Comment on above: Performed By: #### L 9000.0810 #### [facility] [address] [place], [address] Absolute Neut 9.0 X10 3/uL High 2.0-7.7 [facility] Comment on above: Performed By: #### L 900.0810 #### [facility] [address] [place], [address] Basophils/100 WBC (Bld) 0.4 % Normal 0-1 [facility] Comment on above: Performed By: #### L 9000.0810 #### [facility] [address] [place], [address] Eosinophils/100 WBC (Bld) 4.7 % Normal 0-5 [facility] Comment on above: Performed By: #### L 9000.0810 #### [facility] [address] [place], [address] Erythrocyte distribution width (RBC) [Ratio] 13.6 % Normal 11.6-14.6 [facility] Comment on above: Performed By: #### L 9000.0810 #### [facility] [address] [place], [address] Hematocrit (Bld) [Volume fraction] 41.9 % Normal 40-54 [facility] Comment on above: Performed By: #### L 9000.0810 #### [facility] [address] [place], [address] Hemoglobin (Bld) [Mass/Vol] 13.0 g/dL Normal 13.0-16.5 [facility] Comment on above: Performed By: #### L 9000.0810 #### [facility] [address] [place], [address] IG% 1.600 High 0.0-0.9 [facility] Comment on above: Result Comment: IG% - Immature Granulocytes (promyelocytes, myelocytes and metamyelocytes) > 1% indicates that a LEFT SHIFT is Present. Performed By: #### L 9000.0810 #### [facility] [address] [place], [address] Lymphocytes/100 WBC (Bld) 7.0 % Low 19-41 [facility] Comment on above: Performed By: #### L 9000.0810 #### [facility] [address] [place], [address] MCH (RBC) [Entitic mass] 30.3 pg Normal 27.0-32.0 [facility] Comment on above: Performed By: #### L 0.0810 #### [facility] [address] [place], [address] MCHC (RBC) [Mass/Vol] 31.0 g/dL Low 32-36 [facility] Comment on above: Performed By: #### L 0.0810 #### [facility] [address] [place], [address] MCV (RBC) [Entitic vol] 97.7 fL High 80-94 [facility] Comment on above: Performed By: #### L 9000.0810 #### [facility] [address] [place], [address] Monocytes/100 WBC (Bld) 5.8 % Normal 0-10 [facility] Comment on above: Performed By: #### L 900.0810 #### [facility] [address] [place], [address] Neutrophils/100 WBC (Bld) 80.5 % High 47-70 [facility] Comment on above: Performed By: #### L 9000.0810 #### [facility] [address] [place], [address] Nucleated RBC (Bld) [#/Vol] 0 10*3/uL Normal 0-5 [facility] Comment on above: Performed By: #### L 9000.0810 #### [facility] [address] [place], [address] Platelet mean volume (Bld) [Entitic vol] 9.1 fL Normal 6.2-12.0 [facility] Comment on above: Performed By: #### L 9000.0810 #### [facility] [address] [place], [address] Platelets (Bld) [#/Vol] 171 10*3/uL Normal 150-450 [facility] Comment on above: Performed By: #### L 9000.0810 #### [facility] [address] [place], [address] RBC (Bld) [#/Vol] 4.29 10*6/uL Low 4.6-6.2 [facility] Comment on above: Performed By: #### L 9000.0810 #### [facility] [address] [place], [address] RDW SD 49.2 fl High 35.1-43.9 [facility] Comment on above: Performed By: #### L 9000.0810 #### [facility] [address] [place], [address] WBC (Bld) [#/Vol] 11.2 10*3/uL High 4.4-11.0 [facility] Comment on above: Performed By: #### L 9000.0810 #### [facility] [address] [place], [address] CNPRadha [facility]-18-20[facility] TYLOR PEDERSEN ([id number]) 1940 M Date Time Provider Department 09/18/24 PADDY ZAIDI During your visit today, we recorded the following information about you: Ge Will LPN 09/18/2024 2:34 PM Signed Received neuro consult from [facility]. Placed in provider's inbox for review. Route to [place] scanning Allergies As of Date: 09/18/2024 Noted Allergy Reaction ASPIRIN 04/19/2018 16 - Unknown OXYCODONE 04/19/2018 14 - Other: See Comments PERCODAN (OXYCODONE-ASPIRIN) 12/17/2004 1 - Mental Status Change Date Reviewed: 09/09/2024 Reviewed by: Daina Sampson RN - Fully Assessed Reason for Visit: Received Outside Medical Records [1327] Cmt: [facility] Neuro consult Prescriptions as of 09/18/2024 - levothyroxine (SYNTHROID) 50 mcg tablet Take [...] once daily. 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*02/01/2017 Pure hypercholesterolemia [E78.00] 06/12/2018 Idiopathic peripheral neuropathy [G60.9] 06/22/2021 Abnormal electrocardiogram [R94.31] 10/19/2017 Anxiety [F41.9] 12/23/2021 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/19/2017 Cerebrovascular accident (CVA) (HCC) [I63.9] 12/23/2021 [...] BMI 30-34.9 [E66.811] 02/14/2024 Encounter Status:Closed by GE WILL on 09/18/24 Normal [facility] Calculated very low density lipoprotein (VLDL) cholesterol measurementOrdered By: Trevor Burton on 09-18-2024 Calculated very low density lipoprotein (VLDL) cholesterol measurement 18 mg/dL 5-40 [facility] Hemoglobin A1con 09-18-2024 HbA1c (Bld) [Mass fraction] 5.7 % Normal <=5.6 [facility] Comment on above: Result Comment: Norm al < 5.7 % Prediabetic 5.7 - 6.4 % Diabetic >or= 6.5 % Please note range changes. Performed By: #### L 501.9985 ####[facility] [address] [place], [address] Hemoglobin A1c percentageOrd ered By: Trevor Burton on 09-18-2024 HbA1c (Bld) [Mass fraction] 5.7 % <5.7 [facility] Comment on above: Normal < 5.7 % Predi abetic 5.7 - 6.4 % Diabetic >or= 6.5 % Please note range changes. LDL calc ser/plasOrdered By: Trevor Burton on 09-18-2024 Cholesterol in LDL [Mass/Vol] 51 mg/dL [facility] Comment on above: Amewgdofnj=828-527 m g/dL & Higher Gazl=928 mg/dL or greaterFriedwald Equation for LDL-C Lipid Profileon 09-18-2024 CHOL:HDL 3.19 Normal [facility] Comment on above: Order Comment: Comme nts: NPO at [place] prior to lipid panel Performed By: #### L 9000.0810 #### [facility] [address] [place], [address] Cholesterol [Mass/Vol] 99 mg/dL Normal <=[address] [facility] Comment on above: Order Comment: Comme nts: NPO at [place] prior to lipid panel Result Comment: Chol esterol level, Desirable <200 mg/dL Borderline high cholesterol 200-239 mg/dL High cholesterol >=240 mg/dL Recommendations of the NCEP Adult Treatment Panel for the following risk-cutoff thresholds for the [place] population. Performed By: #### L 9000.0810 #### [facility] [address] [place] [place], [address] Cholesterol in HDL [Mass/Vol] 31 mg/dL Low [facility] Comment on above: Order Comment: Comme nts: NPO at [place] prior to lipid panel Result Comment: Jordana onal Cholesterol Education Program (NCEP) guidelines: <40 mg/dL: Low HDL-cholesterol (major risk factor for CHD) >= 60 mg/dL: High HDL-cholesterol (negative risk factor for CHD) HDL-cholesterol is affected by a number of factors, e.g. smoking, exercise, hormones, sex and age. Performed By: #### L 9000.0810 #### [facility] [address] [place], [address] Cholesterol in LDL [Mass/Vol] 51 mg/dL Normal [facility] Comment on above: Order Comment: Comme nts: NPO at [place] prior to lipid panel Result Comment: Bord meyfss=092-621 mg/dL Higher Grzs=086 mg/dL or greater Friedwald Equation for LDL-C Performed By: #### L 9000.0810 #### [facility] [address] [place], [address] Cholesterol in VLDL [Mass/Vol] 18 mg/dL Normal 5-40 [facility] Comment on above: Order Comment: Comme nts: NPO at [place] prior to lipid panel Performed By: #### L 9000.0810 #### [facility] [address] [place], [address] Triglyceride [Mass/Vol] 89 mg/dL Normal [facility] Comment on above: Order Comment: Comme nts: NPO at [place] prior to lipid panel Result Comment: The drugs N-Acetylcysteine and Metamizole may falsely depress this assay. Normal range: <150 mg/dL Borderline High: 150-199 mg/dL High: 200-499 mg/dL Very High: >500 mg/dL Performed By: #### L 9000.0810 #### [facility] [address] [place], [place], [address] Prothrombin Time w/INRon INR Coag (PPP) [Relative time] 2.8 {INR} Normal [facility] Comment on above: Performed By: #### L 500.4100, L503.7505, L300.8000, L500.4050, L100.0100, L503.0106, L506.0200, L501.5200, L501.4021, L300.3900, L501.2300, L501.9520 #### [facility] [address] [place], [place], [address] PT Coag (PPP) [Time] 30.3 s High 11.7-14.9 [facility] Comment on above: Performed By: #### L 500.4100, L503.7505, L300.8000, L500.4050, L100.0100, L503.0106, L506.0200, L501.5200, L501.4021, L300.3900, L501.2300, L501.9520 #### [facility] [address] [place], [place], [address] Screening total cholesterol/ high density lipoprotein (HDL) cholesterol ratioOrdered By: Trevor Burton on 09-18-2024 Cholesterol.total/Choles terol in HDL [Mass ratio] 3.19 {ratio} [facility] Serum or plasma cholesterol in HDL measurement (mass/volume)Ordered By: Trevor Burton on 09-18-2024 Cholesterol in HDL [Mass/Vol] 31 mg/dL Low >40 [facility] Comment on above: National Cholesterol Education Program (NCEP) guidelines:<40 mg/dL: Low HDL-cholesterol (major risk factor for CHD)>= 60 mg/dL: High HDL-cholesterol (negative risk factor for CHD)HDL-cholesterol is affected by a number of factors, e.g. smoking, exercise, hormones, sex and age. Serum or plasma cholesterol measurement (mass/volume)Ordered By: Trevor Burton on 09-18-2024 Cholesterol [Mass/Vol] 99 mg/dL <[address] [facility] Comment on above: Cholesterol level, D esirable <200 mg/dLBorderline high cholesterol 200-239 mg/dLHigh cholesterol >=240 mg/dLRecommendations of the NCEP Adult Treatment Panel for the following risk-cutoff thresholds for the [place] population. TSH DL <= 0.005 mIU/L QnOrde red By: Trevor Burton on 09-18-2024 TSH Qn 1.410 uIU/mL 0.300-4.200 [facility] Thyroid Stim Hormone (TSH)on 09-18-2024 TSH 1.410 uIU/mL Normal 0.300-4.200 [facility] Comment on above: Order Comment: Comme nts: NPO at [place] prior to lipid panel Performed By: #### L 9000.0810 #### [facility] [address] [place], [place], [address] Triglycerides measurementOrd ered By: Trevor Burton on 09-18-2024 Triglyceride [Mass/Vol] 89 mg/dL <199 [facility] Comment on above: The drugs N-Acetylcy steine and Metamizole may falsely depress this assay. Normal range: <150 mg/dLBorderline High: 150-199 mg/dLHigh: 200-499 mg/dLVery High: >500 mg/dL Bilirubin, totalOrdered By: Olivia Walters on 09-17-2024 Bilirubin [Mass/Vol] 0.75 mg/dL 0.00-1.30 [facility] Brain without Contraston Brain without Contrast [facility] Imaging Services [address] [place], [place] [address] Brain without Contrast MR#: [id number] Acct: [id number] Name: TYLOR PEDERSEN Rep #: [id number] : 1940 M 83 From: Ernesto Weaver MD PCP: Dr. Shayne Zaidi MD Status: ADM MARICARMEN Study: Brain without Contrast Date of Exam: 09/17/24 Exam# [id number] Ordering Dr: Trevor Burton MD PROCEDURE: BRAIN WITHOUT CONTRAST 09/17/2024 REASON FOR EXAM: ACUTE ENCEPHALOPATHY TECHNIQUE: BRAIN WITHOUT CONTRAST Multiplanar and multisequence images were obtained. COMPARISON: 09/16/2024. FINDINGS: The ventricles are normal in size and midline in position. Periventricular white matter T2/FLAIR hyperintense foci likely representing chronic microvascular ischemia. No evidence of acute hemorrhage or infarction. No extra-axial blood or fluid collections. The paranasal sinuses and mastoid air cells are clear. The calvarial vault and skull base are intact. MRI/Brain without Contrast IMPRESSION: No acute intracranial abnormality. Reading Location: [id number] CC: Dr. Shayne Zaidi MD; Dr. Trevor Burton MD Stained Glass Artist: Signed Normal [facility] CBC W/Diff, Automatedon 09-07 Absolute Lymph 0.78 X10 3/uL Low 0.83-4.51 [facility] Comment on above: Performed By: #### L 500.4100, L503.7505, L300.8000, L500.4050, L100.0100, L503.0106, L506.0200, L501.5200, L501.4021, L300.3900, L501.2300, L501.9520 #### [facility] [address] [place], [place], [id number] Absolute Neut 14.3 X10 3/uL High 2.0-7.7 [facility] Comment on above: Performed By: #### L 500.4100, L503.7505, L300.8000, L500.4050, L100.0100, L503.0106, L506.0200, L501.5200, L501.4021, L300.3900, L501.2300, L501.9520 #### [facility] [address] [place], [place], [address] Basophils/100 WBC (Bld) 0.4 % Normal 0-1 [facility] Comment on above: Performed By: #### L 500.4100, L503.7505, L300.8000, L500.4050, L100.0100, L503.0106, L506.0200, L501.5200, L501.4021, L300.3900, L501.2300, L501.9520 #### [facility] [address] [place], [place], [phone] (710) Eosinophils/100 WBC (Bld) 3.5 % Normal 0-5 [facility] Comment on above: Performed By: #### L 500.4100, L503.7505, L300.8000, L500.4050, L100.0100, L503.0106, L506.0200, L501.5200, L501.4021, L300.3900, L501.2300, L501.9520 #### [facility] [address] [place], [place], [id number] Erythrocyte distribution width (RBC) [Ratio] 13.2 % Normal 11.6-14.6 [facility] Comment on above: Performed By: #### L 500.4100, L503.7505, L300.8000, L500.4050, L100.0100, L503.0106, L506.0200, L501.5200, L501.4021, L300.3900, L501.2300, L501.9520 #### [facility] [address] [facility] [place], [place], [phone] (550) Hematocrit (Bld) [Volume fraction] 42.9 % Normal 40-54 [facility] Comment on above: Performed By: #### L 500.4100, L503.7505, L300.8000, L500.4050, L100.0100, L503.0106, L506.0200, L501.5200, L501.4021, L300.3900, L501.2300, L501.9520 #### [facility] [address] [place], [address] Hemoglobin (Bld) [Mass/Vol] 13.5 g/dL Normal 13.0-16.5 [facility] Comment on above: Performed By: #### L 500.4100, L503.7505, L300.8000, L500.4050, L100.0100, L503.0106, L506.0200, L501.5200, L501.4021, L300.3900, L501.2300, L501.9520 #### [facility] [address] [place], [address] IG% 1.700 High 0.0-0.9 [facility] Comment on above: Result Comment: IG% - Immature Granulocytes (promyelocytes, myelocytes and metamyelocytes) > 1% indicates that a LEFT SHIFT is Present. Performed By: #### L 500.4100, L503.7505, L300.8000, L500.4050, L100.0100, L503.0106, L506.0200, L501.5200, L501.4021, L300.3900, L501.2300, L501.9520 #### [facility] [address] [place], [address] Lymphocytes/100 WBC (Bld) 4.6 % Low 19-41 [facility] Comment on above: Performed By: #### L 500.4100, L503.7505, L300.8000, L500.4050, L100.0100, L503.0106, L506.0200, L501.5200, L501.4021, L300.3900, L501.2300, L501.9520 #### [facility] [address] [place], [address] MCH (RBC) [Entitic mass] 30.0 pg Normal 27.0-32.0 [facility] Comment on above: Performed By: #### L 500.4100, L503.7505, L300.8000, L500.4050, L100.0100, L503.0106, L506.0200, L501.5200, L501.4021, L300.3900, L501.2300, L501.9520 #### [facility] [address] [place], [place], [phone] (546) MCHC (RBC) [Mass/Vol] 31.5 g/dL Low 32-36 [facility] Comment on above: Performed By: #### L 500.4100, L503.7505, L300.8000, L500.4050, L100.0100, L503.0106, L506.0200, L501.5200, L501.4021, L300.3900, L501.2300, L501.9520 #### [facility] [address] [place], [place], [phone] (233) MCV (RBC) [Entitic vol] 95.3 fL High 80-94 [facility] Comment on above: Performed By: #### L 500.4100, L503.7505, L300.8000, L500.4050, L100.0100, L503.0106, L506.0200, L501.5200, L501.4021, L300.3900, L501.2300, L501.9520 #### [facility] [address] [place], [place], [phone] Monocytes/100 WBC (Bld) 4.8 % Normal 0-10 [facility] Comment on above: Performed By: #### L 500.4100, L503.7505, L300.8000, L500.4050, L100.0100, L503.0106, L506.0200, L501.5200, L501.4021, L300.3900, L501.2300, L501.9520 #### [facility] [address] [place], [address] Neutrophils/100 WBC (Bld) 85.0 % High 47-70 [facility] Comment on above: Performed By: #### L 500.4100, L503.7505, L300.8000, L500.4050, L100.0100, L503.0106, L506.0200, L501.5200, L501.4021, L300.3900, L501.2300, L501.9520 #### [facility] [address] [place], [address] Nucleated RBC (Bld) [#/Vol] 0 10*3/uL Normal 0-5 [facility] Comment on above: Performed By: #### L 500.4100, L503.7505, L300.8000, L500.4050, L100.0100, L503.0106, L506.0200, L501.5200, L501.4021, L300.3900, L501.2300, L501.9520 #### [facility] [address] [place], [address] Platelet mean volume (Bld) [Entitic vol] 9.1 fL Normal 6.2-12.0 [facility] Comment on above: Performed By: #### L 500.4100, L503.7505, L300.8000, L500.4050, L100.0100, L503.0106, L506.0200, L501.5200, L501.4021, L300.3900, L501.2300, L501.9520 #### [facility] [address] [place], [address] Platelets (Bld) [#/Vol] 177 10*3/uL Normal 150-450 [facility] Comment on above: Performed By: #### L 500.4100, L503.7505, L300.8000, L500.4050, L100.0100, L503.0106, L506.0200, L501.5200, L501.4021, L300.3900, L501.2300, L501.9520 #### [facility] [address] [place], [address] RBC (Bld) [#/Vol] 4.50 10*6/uL Low 4.6-6.2 [facility] Comment on above: Performed By: #### L 500.4100, L503.7505, L300.8000, L500.4050, L100.0100, L503.0106, L506.0200, L501.5200, L501.4021, L300.3900, L501.2300, L501.9520 #### [facility] [address] [place], [place], [address] RDW SD 46.6 fl High 35.1-43.9 [facility] Comment on above: Performed By: #### L 500.4100, L503.7505, L300.8000, L500.4050, L100.0100, L503.0106, L506.0200, L501.5200, L501.4021, L300.3900, L501.2300, L501.9520 #### [facility] [address] [place], [place], [address] WBC (Bld) [#/Vol] 16.9 10*3/uL High 4.4-11.0 [facility] Comment on above: Performed By: #### L 500.4100, L503.7505, L300.8000, L500.4050, L100.0100, L503.0106, L506.0200, L501.5200, L501.4021, L300.3900, L501.2300, L501.9520 #### [facility] [address] [place], [address] Tessa 09-17-2024 SHANNANN Telephone (FPWADS) TYLOR PEDERSEN ([id number]) 1940 M Date Time Provider Department 09/17/24 PADDY ZAIDI During your visit today, we recorded the following information about you: Ge Will LPN 09/17/2024 9:46 AM Signed Received visit summary from [facility]. Placed in provider's inbox for review. Route to [place] scanning Allergies As of Date: 09/17/2024 Noted Allergy Reaction ASPIRIN 04/19/2018 16 - Unknown OXYCODONE 04/19/2018 14 - Other: See Comments PERCODAN (OXYCODONE-ASPIRIN) 12/17/2004 1 - Mental Status Change Date Reviewed: 09/09/2024 Reviewed by: Daina Sampson RN - Fully Assessed Reason for Visit: Received Outside Medical Records [3578] Cmt: [facility] ED summary Prescriptions as of 09/17/2024 - levothyroxine (SYNTHROID) 50 mcg tablet Take [...] once daily. 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] 12/17/2004 Essential hypertension [I10] 12/17/2004 Hyperlipidemia [E78.5] 12/17/2004 PAROX VENTRIC TACHYCARD [I47.20] 01/11/2005 Depression [F32.A] 12/27/2008 Dyspnea [R06.00] 09/04/2009 Acquired hypothyroidism [E03.9] 09/26/2012 Obstructive sleep apnea on CPAP [G47.33] 12/19/2014 Adjustment disorder with mixed anxiety and depr*02/01/2017 Pure hypercholesterolemia [E78.00] 06/12/2018 Idiopathic peripheral neuropathy [G60.9] 06/22/2021 Abnormal electrocardiogram [R94.31] 10/19/2017 Anxiety [F41.9] 12/23/2021 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/19/2017 Cerebrovascular accident (CVA) (HCC) [I63.9] 12/23/2021 [...] BMI 30-34.9 [E66.811] 02/14/2024 Encounter Status:Closed by GE WILL on 09/17/24 Normal [facility] CTA Head AND Neck W/ Contras ton 09-17-2024 CTA Head AND Neck W/ Contrast [facility] Imaging Services [address] [place] [id number] CTA Head AND Neck W/ Contrast MR#: [id number] Acct: [id number] Name: TYLOR PEDERSEN Rep #: [id number] : 1940 M 83 From: Shant Levine MD PCP: Dr. Shayne Zaidi MD Status: ADM MARICARMEN Study: CTA Head AND Neck W/ Contrast Date of Exam: Exam# [id number] Ordering Dr: Trevor Burton MD PROCEDURE: CTA HEAD AND NECK W/ CONTRAST 09/17/2024 REASON FOR EXAM: SUSPECTED STROKE WORK UP TECHNIQUE: CTA HEAD AND NECK W/ CONTRAST Multiplanar Sagittal and Coronal images were obtained. CONTRAST: Isovue 370 VOLUME: 88 mL One or more dose reduction techniques were used (e.g., Automated exposure control, adjustment of the mA and/or kV according to patient size, use of iterative reconstruction technique). RADIATION DOSE SUMMARY: CTDlvol: 19.44 mGy DLP: 5061.29 mGycm COMPARISON: None. FINDINGS: Aortic Arch: Normal size and branching pattern. No significant atherosclerotic plaque. Brachiocephalic and Subclavians: Unremarkable RIGHT Carotid: Right CCA: Unremarkable Right ICA: Unremarkable Right ECA: Unremarkable LEFT Carotid: Left CCA: Unremarkable Left ICA: Unremarkable Left ECA: Unremarkable. Vertebrals: Patent RIGHT Vertebral: Patent LEFT Vertebral: Patent Anatomy: [place] anatomy is normal. Aneurysm or avm: No intracranial aneurysms or large vascular malformations are identified. Anterior cerebral arteries: Unremarkable: Middle cerebral arteries: Unremarkable. Basilar artery: Unremarkable. Posterior cerebral arteries: Unremarkable. Other major branches of the posterior circulation: Unremarkable. Major venous structures: Unremarkable. Other findings: Neck: No lymphadenopathy. Lungs: Lung apices are clear. Bones: Bones are unremarkable. CT/CTA Head AND Neck W/ Contrast IMPRESSION: No significant stenosis in the head and neck. No dissection. No aneurysm. Reading Location: [facility] [facility] CC: Dr. Shayne Zaidi MD; Dr. Trevor Burton MD Stained Glass Artist: Signed Normal [facility] Comprehensive Metabolic Prof ilon 09-17-2024 Albumin [Mass/Vol] 3.6 g/dL Normal 3.4-4.8 [facility] Comment on above: Performed By: #### L 500.4100, L503.7505, L300.8000, L500.4050, L100.0100, L503.0106, L506.0200, L501.5200, L501.4021, L300.3900, L501.2300, L501.9520 #### [facility] [address] [place], [address] Albumin/Globulin [Mass ratio] 1.2 {ratio} Normal 0.9-2.4 [facility] Comment on above: Performed By: #### L 500.4100, L503.7505, L300.8000, L500.4050, L100.0100, L503.0106, L506.0200, L501.5200, L501.4021, L300.3900, L501.2300, L501.9520 #### [facility] [address] [place], [address] ALK PHOS 131 U/L High 40-129 [facility] Comment on above: Performed By: #### L 500.4100, L503.7505, L300.8000, L500.4050, L100.0100, L503.0106, L506.0200, L501.5200, L501.4021, L300.3900, L501.2300, L501.9520 #### [facility] [address] [place], [address] ALT [Catalytic activity/Vol] 26 U/L Normal <=46 [facility] Comment on above: Performed By: #### L 500.4100, L503.7505, L300.8000, L500.4050, L100.0100, L503.0106, L506.0200, L501.5200, L501.4021, L300.3900, L501.2300, L501.9520 #### [facility] [address] [place], [place], [address] AST [Catalytic activity/Vol] 21 U/L Normal <=37 [facility] Comment on above: Performed By: #### L 500.4100, L503.7505, L300.8000, L500.4050, L100.0100, L503.0106, L506.0200, L501.5200, L501.4021, L300.3900, L501.2300, L501.9520 #### [facility] [address] [place], [address] Bilirubin [Mass/Vol] 0.75 mg/dL Normal 0.00-1.30 [facility] Comment on above: Performed By: #### L 500.4100, L503.7505, L300.8000, L500.4050, L100.0100, L503.0106, L506.0200, L501.5200, L501.4021, L300.3900, L501.2300, L501.9520 #### [facility] [address] [place], [address] BUN/CRE 31.7 RATIO High 10-20 [facility] Comment on above: Performed By: #### L 500.4100, L503.7505, L300.8000, L500.4050, L100.0100, L503.0106, L506.0200, L501.5200, L501.4021, L300.3900, L501.2300, L501.9520 #### [facility] [address] [place], [address] Calcium [Mass/Vol] 9.2 mg/dL Normal 7.6-11.0 [facility] Comment on above: Performed By: #### L 500.4100, L503.7505, L300.8000, L500.4050, L100.0100, L503.0106, L506.0200, L501.5200, L501.4021, L300.3900, L501.2300, L501.9520 #### [facility] [address] [place], [address] Chloride [Moles/Vol] 93 mmol/L Low 98-108 [facility] Comment on above: Performed By: #### L 500.4100, L503.7505, L300.8000, L500.4050, L100.0100, L503.0106, L506.0200, L501.5200, L501.4021, L300.3900, L501.2300, L501.9520 #### [facility] [address] [place], [address] CO2 [Moles/Vol] 33.0 mmol/L High 21.0-32.0 [facility] Comment on above: Performed By: #### L 500.4100, L503.7505, L300.8000, L500.4050, L100.0100, L503.0106, L506.0200, L501.5200, L501.4021, L300.3900, L501.2300, L501.9520 #### [facility] [address] [place], [address] Creatinine [Mass/Vol] 0.77 mg/dL Normal 0.70-1.20 [facility] Comment on above: Performed By: #### L 500.4100, L503.7505, L300.8000, L500.4050, L100.0100, L503.0106, L506.0200, L501.5200, L501.4021, L300.3900, L501.2300, L501.9520 #### [facility] [address] [place], [address] ECRCL 78.17 ml/min Normal 50-250 [facility] Comment on above: Performed By: #### L 500.4100, L503.7505, L300.8000, L500.4050, L100.0100, L503.0106, L506.0200, L501.5200, L501.4021, L300.3900, L501.2300, L501.9520 #### [facility] [address] [place], [address] GAP 11 Normal 5-15 [facility] Comment on above: Performed By: #### L 500.4100, L503.7505, L300.8000, L500.4050, L100.0100, L503.0106, L506.0200, L501.5200, L501.4021, L300.3900, L501.2300, L501.9520 #### [facility] [address] [place], [address] GFR/1.73 sq M.predicted among non-blacks MDRD (S/P/Bld) [Vol rate/Area] 88 mL/min/{1.73_m2} Normal >60 [facility] Comment on above: Result Comment: mL/m in/1.73m2 CKD-EPI Creatinine Equation (2020) Performed By: #### L 500.4100, L503.7505, L300.8000, L500.4050, L100.0100, L503.0106, L506.0200, L501.5200, L501.4021, L300.3900, L501.2300, L501.9520 #### [facility] [address] [place], [address] Globulin (S) [Mass/Vol] 3.1 g/dL Normal 2.2-4.2 [facility] Comment on above: Performed By: #### L 500.4100, L503.7505, L300.8000, L500.4050, L100.0100, L503.0106, L506.0200, L501.5200, L501.4021, L300.3900, L501.2300, L501.9520 #### [facility] [address] [place], [place], [address] Glucose [Mass/Vol] 106 mg/dL High 70-99 [facility] Comment on above: Performed By: #### L 500.4100, L503.7505, L300.8000, L500.4050, L100.0100, L503.0106, L506.0200, L501.5200, L501.4021, L300.3900, L501.2300, L501.9520 #### [facility] [address] [place], [place], [address] Potassium [Moles/Vol] 4.4 mmol/L Normal 3.3-5.1 [facility] Comment on above: Performed By: #### L 500.4100, L503.7505, L300.8000, L500.4050, L100.0100, L503.0106, L506.0200, L501.5200, L501.4021, L300.3900, L501.2300, L501.9520 #### [facility] [address] [place], [address] Sodium [Moles/Vol] 138 mmol/L Normal 133-145 [facility] Comment on above: Performed By: #### L 500.4100, L503.7505, L300.8000, L500.4050, L100.0100, L503.0106, L506.0200, L501.5200, L501.4021, L300.3900, L501.2300, L501.9520 #### [facility] [address] [place], [address] T PROT 6.7 g/dL Normal 5.9-8.4 [facility] Comment on above: Performed By: #### L 500.4100, L503.7505, L300.8000, L500.4050, L100.0100, L503.0106, L506.0200, L501.5200, L501.4021, L300.3900, L501.2300, L501.9520 #### [facility] [address] [place], [address] Urea nitrogen [Mass/Vol] 25 mg/dL High 4-19 [facility] Comment on above: Performed By: #### L 500.4100, L503.7505, L300.8000, L500.4050, L100.0100, L503.0106, L506.0200, L501.5200, L501.4021, L300.3900, L501.2300, L501.9520 #### [facility] [address] [place], [address] Electrocardiogram reportOrde red By: Dallas Muller on 09-17-2024 EKG study [facility] Cardiovascular Services [address] [place] [address] 12 Lead EKG 09/16/246 MR#: [id number] Acct: [id number] Name: TYLOR PEDERSEN Rep #:[id number] : 1940 83 From: Dallas Muller MD Attending Dr: Dr. Trevor Burton MD Status: ADM MARICARMEN Ordering Dr: Chris Cole DO Date: 12/01 Location: [facility] Sex: M C Admitted: 09/16/24 Test Reason : SOB Blood Pressure : */* mmHG Vent. Rate : 101 BPM Atrial Rate : * BPM P-R Int : * ms QRS Dur : 80 ms QT Int : 364 ms P-R-T Axes : * 5 58 degrees QTcB Int : 471 ms Atrial fibrillation with rapid ventricular response Abnormal ECG Confirmed by RENZO GRAHAM, DALLAS ([id number]), newspaper copy editor JESUS HERNANDEZ ([id number]) on 09/17/2024 1:15:29 PM Referred By: Confirmed By: DALLAS MULLER MD 09/17/24 1315 Date _ Dallas Muller MD CC: Dr. Shayne Zaidi MD; Dr. Trevor Burton MD; Dr. Chris Cole DO ~ Signed [facility] Work Phone: Laboratory - Chemistry and C hemistry - challengeOrdered By: Olivia Walters on 09-17-2024 AST [Catalytic activity/Vol] 21 U/L <38 [facility] MR/CON.PCM.NEon 09-17-2024 MR/CON.PCM.NE [facility] Medical Records Department [address] [place] [address] Consultation - Neurology 09/17/24 1212 MR#: [id number] Acct: [id number] Name: TYLOR PEDERSEN Rep #: [id number] : 1940 83 From: Trixie Jeronimo MD PCP: Dr. Shayne Zaidi MD Status:ADM MARICARMEN Location: [place] [id number] Assessment and Plan: Neuro Assessment/Plan TYLOR PEDERSEN is a 83 M with a past medical history of , being evaluated by Teleneurology for confusion of unclear etiology. History is limited as unable to get additional information from the person he lives with. Exam is significant for intattention predominently but appears to have some R arm weakness and some possible L leg ataxia which is odd but localizes to possible multiple vascular territories. At this time most concerning ddx is stroke (although INR supratherapeutic) vs delirium from an unclear metabolic/infectious source (white count elevated, potentially still struggling to get over PNA). Plan: - agree with MRI Brain - delirium precautions I personally attended this patient and spent a total time of 45minutes evaluating this patient including clinical assessment, review of chart, medical history imaging, and determining appropriate treatment and workup. HPI Consult Data Date of Consult: 09/18/24 HPI Narrative HPI Narrative: The patient is an 83 y/o M w/ PMHx: Obesity, HTN, HLD, CAD s/p CABG x 2 and PCI, HFpEF, Hypothyroidism, Chronic neuropathy, CKD stage II per GFR trending, Hx CVA, Anxiety and Depression/Panic attacks, recent discharge 09/12/24 following evaluation and treatment of chronic hypoxic respiratory failure secondary to acute HFrEF exacerbation in addition to aspiration pneumonia discharged on Augmentin as well as PAF with RVR with atenolol increased by cardiology during previous evaluation and continuation of patient Coumadin with INR trending to now re-presents to the [facility] ED on 09/16/2024 with history of reported confusion that started the evening prior with family noting concern for hallucinations with patient upon arrival not understanding why he was brought to the ED but noting he is very anxious and requesting medication Neurologic History Patient states hs is not sure what is happening or why he is in the hospital. Does not know date or time. Per daughter in law who walked in, he has been a little more confused for several days but unclear what exact timeline. Unclear to her what the hallucinations are but states that typically he knows where he is and lives with a friend. The friend is concerned as well. She is not clear if there has been a change in his medications. Neurologic Exam: -? General: Laying comfortably in bed; in no acute distress. -? HENT: Normal oropharynx and mucosa. Normal external appearance of ears and nose. Exophthalmos. -? Neck: Supple, no pain or tenderness -? CV:??? No peripheral edema. -? Pulmonary:??? Normal respiratory effort. -? Ext: No cyanosis, edema, or deformity -? Skin: No rash. Normal palpation of skin.??? -? Musculoskeletal: full range of motion; no joint tenderness. Normal digits and nails by inspection. No clubbing. -? NEURO: -? Mental Status: The patient was alert but poorly oriented to time, place, and person. Unsure why in hospital, states it is every day of the week and thinks it was April. Poor attention -? Language: speech is intact.??? Naming, repetition, fluency, and comprehension intact. -? Cranial Nerves: PERRL 3mm/brisk. EOMI, visual bailey full, no facial asymmetry, facial sensation intact, hearing intact, tongue midline, no evidence of atrophy or fibrillations. -? Motor: RUE drift Difficulty with following commands to do formal strength testing but fights the providers -? Sensation- Intact to light touch bilaterally -? Coordination: No dysmetria on xaeekc-euuh-lpmtin, LLE ataxia -? 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 Normal [facility] Magnetic resonance imaging r eportOrdered By: Ernesto Weaver on 09-17-2024 Study report [facility] Imaging Services [address] [place] [address] Brain without Contrast MR#: [id number] Acct: [id number] Name: TYLOR PEDERSEN Rep #: [id number] : 1940 M 83 From: Frank Weaver MD PCP: Dr. Shayne Zaidi MD Status: ADM MARICARMEN Study:Brain without Contrast Date of Exam: 09/17/24 Exam# [id number] Ordering Dr: Archie Burton MD PROCEDURE: BRAIN WITHOUT CONTRAST 09/17/2024 REASON FOR EXAM: ACUTE ENCEPHALOPATHY TECHNIQUE: BRAIN WITHOUT CONTRAST Multiplanar and multisequence images were obtained. COMPARISON: 09/16/2024. FINDINGS: The ventricles are normal in size and midline in position. Periventricular white matter T2/FLAIR hyperintense foci likely representing chronic microvascular ischemia. No evidence of acute hemorrhage orinfarction. No extra-axial blood or fluid collections. The paranasal sinuses and mastoid air cells are clear. The calvarial vault and skull base are intact. MRI/Brain without Contrast IMPRESSION: No acute intracranial abnormality. Reading Location: [id number] CC: Dr. Shayne Zaidi MD; Dr. Trevor Burton MD ~ Stained Glass Artist: Signed [facility] Prothrombin Time w/INRon INR Coag (PPP) [Relative time] 3.4 {INR} Normal [facility] Comment on above: Performed By: #### L 500.4100, L503.7505, L300.8000, L500.4050, L100.0100, L503.0106, L506.0200, L501.5200, L501.4021, L300.3900, L501.2300, L501.9520 #### [facility] [address] [place], [place], [address] PT Coag (PPP) [Time] 35.1 s High 11.7-14.9 [facility] Comment on above: Performed By: #### L 500.4100, L503.7505, L300.8000, L500.4050, L100.0100, L503.0106, L506.0200, L501.5200, L501.4021, L300.3900, L501.2300, L501.9520 #### [facility] [address] [place], [place], [address] Serum globulin measurementOr dered By: Olivia Walters on 09-17-2024 Globulin (S) [Mass/Vol] 3.1 g/dL 2.2-4.2 [facility] Serum or plasma alanine castillo otransferase (ALT) measurementOrdered By: Olivia Romeo on 09-17-2024 ALT [Catalytic activity/Vol] 26 U/L <47 [facility] Serum or plasma albumin regan urement (mass/volume)Ordered By: Olivia Romeo on 09-17-2024 Albumin [Mass/Vol] 3.6 g/dL 3.4-4.8 [facility] Serum or plasma albumin/glob ulin mass ratioOrdered By: Olivia Walters on 09-17-2024 Albumin/Globulin [Mass ratio] 1.2 {ratio} 0.9-2.4 [facility] Serum or plasma alkaline effie sphatase measurementOrdered By: Olivia Walters on 09-17-2024 ALP [Catalytic activity/Vol] 131 U/L High 40-129 [facility] Thyroid Stim Hormone (TSH)on 09-17-2024 TSH 2.330 uIU/mL Normal 0.300-4.200 [facility] Comment on above: Performed By: #### L 500.4100, L503.7505, L300.8000, L500.4050, L100.0100, L503.0106, L506.0200, L501.5200, L501.4021, L300.3900, L501.2300, L501.9520 #### [facility] [address] [place], [address] Total proteinOrdered By: Virginia Walters on 09-17-2024 Protein [Mass/Vol] 6.7 g/dL 5.9-8.4 [facility] Troponin T HS 2 HRon 025 Trop T High Sen 13 ng/L Normal <=22 [facility] Comment on above: Performed By: #### L 500.4100, L503.7505, L300.8000, L500.4050, L100.0100, L503.0106, L506.0200, L501.5200, L501.4021, L300.3900, L501.2300, L501.9520 #### [facility] [address] [place], [address] Troponin T HS 4 HRon 025 Trop T High Sen 14 ng/L Normal <=22 [facility] Comment on above: Performed By: #### L 500.4100, L503.7505, L300.8000, L500.4050, L100.0100, L503.0106, L506.0200, L501.5200, L501.4021, L300.3900, L501.2300, L501.9520 #### [facility] [address] [place], [address] Troponin T.cardiac [Mass/vol ume] in Serum or Plasma by High sensitivity methodOrdered By: Olivia Walters on 09-17-2024 Troponin T.cardiac High sensitivity method [Mass/Vol] 14 ng/L <22 [facility] Troponin T.cardiac High sensitivity method [Mass/Vol] 13 ng/L <22 [facility] 12 Lead EKGon 09-16-2024 12 Lead EKG [facility] Cardiovascular Services [address] [place] [place] [address] 12 Lead EKG 09/16/246 MR#: [id number] Acct: [id number] Name: TYLOR PEDERSEN Rep #: [id number] : 1940 83 From: Dallas Muller MD Attending Dr: Dr. Trevor Burton MD Status: ADM MARICARMEN Ordering Dr: Chris Cole DO Date: 09/16/24 Location: [facility] Sex: M C Admitted: 09/16/24 Test Reason : SOB Blood Pressure : */* mmHG Vent. Rate : 101 BPM Atrial Rate : * BPM P-R Int : * ms QRS Dur : 80 ms QT Int : 364 ms P-R-T Axes : * 5 58 degrees QTcB Int : 471 ms Atrial fibrillation with rapid ventricular response Abnormal ECG Confirmed by DALLAS MULLER MD ([id number]), newspaper copy editor JESUS HERNANDEZ ([id number]) on 09/17/2024 1:15:29 PM Referred By: Confirmed By: DALLAS MULLER MD 09/17/24 1315 Date Dallas Muller MD CC: Dr. Shayne Zaidi MD; Dr. Trevor Burton MD; Dr. Chris Cole DO Signed Normal [facility] Absolute lymphocyte countOrd ered By: Remus Ungur on 09-16-2024 Lymphocytes Auto (Unsp spec) [#/Vol] 0.83 10*3/uL 0.83-4.51 [facility] Absolute neutrophil countOrd ered By: Remus Ungur on 09-16-2024 Neutrophils (Bld) [#/Vol] 15.3 10*3/uL High 2.0-7.7 [facility] Ammoniaon 09-16-2024 Ammonia (P) [Moles/Vol] 31.9 umol/L Normal 16-60 [facility] Comment on above: Performed By: #### L 500.4100, L503.7505, L300.8000, L500.4050, L100.0100, L503.0106, L506.0200, L501.5200, L501.4021, L300.3900, L501.2300, L501.9520 #### [facility] [address] [place], [place], [id number] Anion gap in Serum or Plasma Ordered By: Remus Ungtalia on 09-16-2024 Anion gap [Moles/Vol] 9 mmol/L 5-15 [facility] Assessment of wrist artery p atency prior to arterial punctureOrdered By: Olivia Walters on 09-16-2024 Arterial patency Wrist artery --pre arterial puncture Positive [facility] Automated lymphocyte count a s percentage of total leukocytesOrdered By: Remus Ungtalia on 09-16-2024 Lymphocytes/100 WBC Auto (Unsp spec) 4.6 % Low 19-41 [facility] BUN/creatinine ratioOrdered By: Remus Ungtalia on 09-16-2024 Urea nitrogen/Creatinine [Mass ratio] 29.2 mg/mg High 10 [facility] Basic Metabolic Profile (BMP )on 09-16-2024 BUN/CRE 29.2 RATIO High 11-26 [facility] Comment on above: Performed By: #### L 9000.0810 #### [facility] [address] [place], [address] Calcium [Mass/Vol] 9.3 mg/dL Normal 7.6-11.0 [facility] Comment on above: Performed By: #### L 9000.0810 #### [facility] [address] [place], [address] Chloride [Moles/Vol] 93 mmol/L Low 98-108 [facility] Comment on above: Performed By: #### L 9000.0810 #### [facility] [address] [place], [address] CO2 [Moles/Vol] 35.6 mmol/L High 21.0-32.0 [facility] Comment on above: Performed By: #### L 9000.0810 #### [facility] [address] [place], [address] Creatinine [Mass/Vol] 0.81 mg/dL Normal 0.70-1.20 [facility] Comment on above: Performed By: #### L 9000.0810 #### [facility] [address] [place], [address] ECRCL 80.91 ml/min Normal 50-250 [facility] Comment on above: Performed By: #### L 9000.0810 #### [facility] [address] [place], [address] GAP 9 Normal 5-15 [facility] Comment on above: Performed By: #### L 9000.0810 #### [facility] [address] [place], [address] GFR/1.73 sq M.predicted among non-blacks MDRD (S/P/Bld) [Vol rate/Area] 87 mL/min/{1.73_m2} Normal >60 [facility] Comment on above: Result Comment: mL/m in/1.73m2 CKD-EPI Creatinine Equation (2020) Performed By: #### L 9000.0810 #### [facility] [address] [place], [address] Glucose [Mass/Vol] 112 mg/dL High 70-99 [facility] Comment on above: Performed By: #### L 9000.0810 #### [facility] [address] [place], [address] Potassium [Moles/Vol] 4.6 mmol/L Normal 3.3-5.1 [facility] Comment on above: Performed By: #### L 9000.0810 #### [facility] [address] [place], [address] Sodium [Moles/Vol] 138 mmol/L Normal 133-145 [facility] Comment on above: Performed By: #### L 9000.0810 #### [facility] [address] [place], [address] Urea nitrogen [Mass/Vol] 24 mg/dL High 4-19 [facility] Comment on above: Performed By: #### L 9000.0810 #### [facility] [address] [place], [address] Basophil percentageOrdered B y: Chris Cole on 09-16-2024 Basophils/100 WBC (Bld) 0.4 % 0-1 [facility] Bilirubin Test strip Ql (U)O rdered By: Chris Cole on 09-16-2024 Bilirubin Ql (U) Negative Negative [facility] Blood Gases by CPSon 025 JOSEF TEST Positive Normal [facility] Comment on above: Performed By: #### L 500.4100, L503.7505, L300.8000, L500.4050, L100.0100, L503.0106, L506.0200, L501.5200, L501.4021, L300.3900, L501.2300, L501.9520 #### [facility] [address] [place], [address] Base excess Calc (Bld) [Moles/Vol] 16 mmol/L High -2 to +2 [facility] Comment on above: Performed By: #### L 500.4100, L503.7505, L300.8000, L500.4050, L100.0100, L503.0106, L506.0200, L501.5200, L501.4021, L300.3900, L501.2300, L501.9520 #### [facility] [address] [place], [place], [address] Blood Gas Type ART Normal [facility] Comment on above: Performed By: #### L 500.4100, L503.7505, L300.8000, L500.4050, L100.0100, L503.0106, L506.0200, L501.5200, L501.4021, L300.3900, L501.2300, L501.9520 #### [facility] [address] [place], [place], [address] CO2 [Moles/Vol] 42 mmol/L Normal [facility] Comment on above: Performed By: #### L 500.4100, L503.7505, L300.8000, L500.4050, L100.0100, L503.0106, L506.0200, L501.5200, L501.4021, L300.3900, L501.2300, L501.9520 #### [facility] [address] [place], [place], [id number] FI02 3.0 Normal [facility] Comment on above: Performed By: #### L 500.4100, L503.7505, L300.8000, L500.4050, L100.0100, L503.0106, L506.0200, L501.5200, L501.4021, L300.3900, L501.2300, L501.9520 #### [facility] [address] [place], [place], [address] HCO3 (Bld) [Moles/Vol] 40.2 mmol/L High 22-26 [facility] Comment on above: Performed By: #### L 500.4100, L503.7505, L300.8000, L500.4050, L100.0100, L503.0106, L506.0200, L501.5200, L501.4021, L300.3900, L501.2300, L501.9520 #### [facility] [address] [place], [place], [id number] Mode Not entered Normal [facility] Comment on above: Performed By: #### L 500.4100, L503.7505, L300.8000, L500.4050, L100.0100, L503.0106, L506.0200, L501.5200, L501.4021, L300.3900, L501.2300, L501.9520 #### [facility] [address] [place], [place], [id number] O2 Delivery Dev Cannula Normal [facility] Comment on above: Performed By: #### L 500.4100, L503.7505, L300.8000, L500.4050, L100.0100, L503.0106, L506.0200, L501.5200, L501.4021, L300.3900, L501.2300, L501.9520 #### [facility] [address] [place], [place], [id number] pCO2 63.2 mmHg High 35-45 [facility] Comment on above: Performed By: #### L 500.4100, L503.7505, L300.8000, L500.4050, L100.0100, L503.0106, L506.0200, L501.5200, L501.4021, L300.3900, L501.2300, L501.9520 #### [facility] [address] [place], [place], [id number] pH (Bld) 7.41 [pH] Normal 7.35-7.45 [facility] Comment on above: Performed By: #### L 500.4100, L503.7505, L300.8000, L500.4050, L100.0100, L503.0106, L506.0200, L501.5200, L501.4021, L300.3900, L501.2300, L501.9520 #### [facility] [address] [place], [place], [address] PO2 120 mmHG High 75-100 [facility] Comment on above: Performed By: #### L 500.4100, L503.7505, L300.8000, L500.4050, L100.0100, L503.0106, L506.0200, L501.5200, L501.4021, L300.3900, L501.2300, L501.9520 #### [facility] [address] [place], [place], [id number] SITE R Radial Normal [facility] Comment on above: Performed By: #### L 500.4100, L503.7505, L300.8000, L500.4050, L100.0100, L503.0106, L506.0200, L501.5200, L501.4021, L300.3900, L501.2300, L501.9520 #### [facility] [address] [place], [place], [address] SO2 99 Normal 95-99 [facility] Comment on above: Performed By: #### L 500.4100, L503.7505, L300.8000, L500.4050, L100.0100, L503.0106, L506.0200, L501.5200, L501.4021, L300.3900, L501.2300, L501.9520 #### [facility] [address] [place], [place], [id number] Blood base excess determinat ionOrdered By: Olivia Walters on 09-16-2024 Base excess Calc (BldV) [Moles/Vol] 16 mmol/L High -2-2 [facility] Blood bicarbonate measuremen tOrdered By: Olivia Walters on 09-16-2024 HCO3 (Bld) [Moles/Vol] 40.2 mmol/L High 22-26 [facility] Brain/Head without Contrasto n 09-16-2024 Brain/Head without Contrast [facility] Imaging Services [address] [place], [place] [address] Brain/Head without Contrast MR#: [id number] Acct: [id number] Name: TYLOR PEDERSEN Rep #: [id number] : 1940 M 83 From: Melanie Devlin nd, MD PCP: Dr. Shyane Zaidi MD Status: REG ER Study: Brain/Head without Contrast Date of Exam: 09/07 Exam# [id number] Ordering Dr: Chris Cole DO EXAM: BRAIN/HEAD WITHOUT CONTRAST CLINICAL HISTORY: 83 y/o M with CONFUSION. COMPARISON: MRI head 07/26/2019. TECHNIQUE: Routine CT imaging of the head without IV contrast. Additional multiplanar reformats were obtained. Dose reduction techniques were used including intermediate exposure control (AEC),iterative reconstruction technique, and/or mA and/or KV dose adjustments based on patient's size. FINDINGS: The ventricles, sulci and cisterns are mildly prominent, suggestive of brain parenchymal volume loss. There is no evidence of acute intracranial hemorrhage or herniation. There is no midline shift, mass effect, or extra-axial collection. Chronic lacunar type infarct within the right centrum semiovale. Moderate patchy supratentorial white matter hypodensities, compatible with patient age. The pedraza and white matter interfaces are otherwise maintained. Prior ocular lens replacements. The visualized paranasal sinuses and mastoids are unremarkable. No acute calvarial fracture or scalp hematoma. CT/Brain/Head without Contrast IMPRESSION: No acute intracranial finding. Reading Location: [id number] CC: Dr. Shayne Zaidi MD; Dr. Chris Cole DO Stained Glass Artist: Signed Normal [facility] CBC W/Diff, Automatedon 08- 0-2024 Absolute Lymph 0.83 X10 3/uL Normal 0.83-4.51 [facility] Comment on above: Performed By: #### L 9000.0810 #### [facility] [address] [place], [address] Absolute Neut 15.3 X10 3/uL High 2.0-7.7 [facility] Comment on above: Performed By: #### L 9000.0810 #### [facility] [address] [place], [address] Basophils/100 WBC (Bld) 0.4 % Normal 0-1 [facility] Comment on above: Performed By: #### L 9000.0810 #### [facility] [address] [place], [address] Eosinophils/100 WBC (Bld) 3.7 % Normal 0-5 [facility] Comment on above: Performed By: #### L 9000.0810 #### [facility] [address] [place], [address] Erythrocyte distribution width (RBC) [Ratio] 13.2 % Normal 11.6-14.6 [facility] Comment on above: Performed By: #### L 9000.0810 #### [facility] [address] [place], [address] Hematocrit (Bld) [Volume fraction] 44.0 % Normal 40-54 [facility] Comment on above: Performed By: #### L 9000.0810 #### [facility] [address] [place], [address] Hemoglobin (Bld) [Mass/Vol] 13.9 g/dL Normal 13.0-16.5 [facility] Comment on above: Performed By: #### L 9000.0810 #### [facility] [address] [place], [address] IG% 1.800 High 0.0-0.9 [facility] Comment on above: Result Comment: IG% - Immature Granulocytes (promyelocytes, myelocytes and metamyelocytes) > 1% indicates that a LEFT SHIFT is Present. Performed By: #### L 9000.0810 #### [facility] [address] [place], [address] Lymphocytes/100 WBC (Bld) 4.6 % Low 19-41 [facility] Comment on above: Performed By: #### L 9000.0810 #### [facility] [address] [place], [address] MCH (RBC) [Entitic mass] 30.1 pg Normal 27.0-32.0 [facility] Comment on above: Performed By: #### L 9000.0810 #### [facility] [address] [place], [address] MCHC (RBC) [Mass/Vol] 31.6 g/dL Low 32-36 [facility] Comment on above: Performed By: #### L 9000.0810 #### [facility] [address] [place], [address] MCV (RBC) [Entitic vol] 95.2 fL High 80-94 [facility] Comment on above: Performed By: #### L 9000.0810 #### [facility] [address] [place], [address] Monocytes/100 WBC (Bld) 4.1 % Normal 0-10 [facility] Comment on above: Performed By: #### L 9000.0810 #### [facility] [address] [place], [address] Neutrophils/100 WBC (Bld) 85.4 % High 47-70 [facility] Comment on above: Performed By: #### L 9000.0810 #### [facility] [address] [place], [address] Nucleated RBC (Bld) [#/Vol] 0 10*3/uL Normal 0-5 [facility] Comment on above: Performed By: #### L 9000.0810 #### [facility] [address] [place], [address] Platelet mean volume (Bld) [Entitic vol] 9.1 fL Normal 6.2-12.0 [facility] Comment on above: Performed By: #### L 9000.0810 #### [facility] [address] [place], [address] Platelets (Bld) [#/Vol] 201 10*3/uL Normal 150-450 [facility] Comment on above: Performed By: #### L 9000.0810 #### [facility] [address] [place], [address] RBC (Bld) [#/Vol] 4.62 10*6/uL Normal 4.6-6.2 [facility] Comment on above: Performed By: #### L 9000.0810 #### [facility] [address] [place], [address] RDW SD 46.3 fl High 35.1-43.9 [facility] Comment on above: Performed By: #### L 9000.0810 #### [facility] [address] [place], [address] WBC (Bld) [#/Vol] 18.0 10*3/uL High 4.4-11.0 [facility] Comment on above: Performed By: #### L 9000.0810 #### [facility] [address] [place], [address] Carbon dioxide, total [Moles /volume] in Central venous bloodOrdered By: Chris Cole on 09-16-2024 CO2 [Moles/Vol] 35.6 mmol/L High 21.0-32.0 [facility] Chest 1 View (Portable)on Chest 1 View (Portable) [facility] Imaging Services [address] [place] [address] Chest 1 View (Portable) MR#: [id number] Acct: [id number] Name: TYLOR PEDERSEN Rep #: [id number] : 1940 M 83 From: Ishaan Braden MD PCP: Dr. Shayne Zaidi MD Status: ADM MARICARMEN Study: Chest 1 View (Portable) Date of Exam: 09/16/24 Exam# [id number] Ordering Dr: Chris Cole DO PROCEDURE: CHEST 1 VIEW (PORTABLE) 09/16/2024 REASON FOR EXAM: COUGH TECHNIQUE: Frontal view of the chest. COMPARISON: 09/12/2024 FINDINGS: Hardware: Sternotomy wires are present. Heart: Cardiac and mediastinal contours are stable. Lungs: No significant change in the appearance of the lungs. Bones: Degenerative changes are identified within the thoracic spine. Other: Persistent elevation of the right hemidiaphragm. Contrast is noted within the colon. RAD/Chest 1 View (Portable) IMPRESSION: No Acute Findings. Reading Location: [facility] CC: Dr. Shayne Zaidi MD; Dr. Chris Cole DO Stained Glass Artist: Signed Normal [facility] Chloride assayOrdered By: Chani Cole on 09-16-2024 Chloride [Moles/Vol] 93 mmol/L Low 98-108 [facility] Emergency Department Summary on 09-16-2024 Emergency Department Summary [facility] Medical Records Department [address] [place] [address] Emergency Department Summary 09/16/24 MR#: [id number] Acct: [id number] Name: TYLOR PEDERSEN Rep #: [id number] : 1940 83 From: Chris Cole DO PCP: Dr. Shayne Zaidi MD Status:ADM MARICARMEN Location: [place] [address] HPI History of Present Illness Chief Complaint: General Illness Detail of Chief Complaint: Confusion Informant: patient Narrative Narrative: Patient presents to the emergency department complaint of some confusion that started last evening. Patient apparently at times will kind of twitch in his sleep and then when he woke up he started t alking to his son and told him to give medications to his other son. Really was not making much sense. He was admitted recently to the hospital for pneumonia. Currently on an antibiotic. He denies headache. Denies chest pain. Denies abdominal pain. Denies urinary symptoms. He has not had a fever. He does wear home O2 for history of COPD. Patient really does not know why he is here and states that other than feeling anxious he really has no complaints. [facility] Medical History Atherosclerosis of coronary artery of [place] heart without angina pectoris Prostate CA Stroke [...] mg PO DAILY@0800 health 2 12/14/21 History potassium chloride 10 mEq 20 meq PO DAILY supplement 2 12/14/21 History tablet,extended release albuterol sulfate 90 mcg/actuation 2 puff inhalation Q4H PRN PRN Unknown Rx aerosol inhaler (Ventolin HFA) Wheezing ##1 fluticasone 250 mcg-salmeterol 50 1 inh inhalation Q12H 09/10/24 Un known History mcg/dose blistr powdr for inhalation gabapentin 300 mg capsule 300 mg PO BID 09/10/24 Unknown His tory nitroglycerin 0.3 mg sublingual 0.3 mg sublingual Q5M PRN chest Unknown History tablet pain paroxetine HCl 40 mg tablet 40 mg PO DAILY 09/10/24 Unknown Hi story amoxicillin 875 mg-potassium 1 tab PO BIDCM #11 tabs 09/12/24 U nknown Rx clavulanate 125 mg tablet atenolol 50 mg tablet 50 mg PO DAILY #30 tabs 09/12/24 U nknown Rx furosemide 40 mg tablet (Lasix) 40 mg PO BID #60 tabs 09/12/24 Unk nown Rx warfarin 2.5 mg tablet (Jantoven) 5 mg (2 x 2.5 mg) PO 1700 #60 tab s 09/12/24 Unknown Rx Allergy/AdvReac Type Severity Reaction Status Date / Time oxycodone (From Percodan) Allergy Other Verified 09/16/24 18:21 Surgical History History of coronary artery stent placement (12/16/21) Cataract extraction status History of hip replacement History of open heart surgery Social History Smoking Status: Former smoker quit date: 02/08/92 pack-years: 37 Tobacco: How many years used: 20 alcohol intake: never substance use type: does not use ROS ROS ED Constitutional Constitutional ED: Reports systems reviewed and no addt'l complaints, except as documented; Denies body ache(s), change in weight or chills Eyes Eyes: Denies acute decrease in peripheral vision, change in vision, double vision or loss of vision ENT ENT ED: Reports none; Denies ear pain, lip swelling, loss taste/smell, neck pain, otalgia or sore throat Cardiovascular Cardiovascular: Reports none; Denies abdominal pain, chest pain, chest pain with activity, leg edema, lightheadedness, palpitations, racing heartbeat, rapid heart rate or syncope Respiratory/Chest Respiratory/Chest: Reports none; Denies change in mental status, dry cough, dyspnea, hemoptysis, shortness of breath at rest or shortness of breath with exertion Gastrointestinal Gastrointestinal: Reports none; Denies abdominal pain, change in stool character, diarrhea, hematemesis, hematochezia, melena, rectal bleeding or vomiting Genitourinary Genitourinary ED: Reports none; Denies abdominal discomfort, anuria, dysuria, genital pain or polyuria Musculoskeletal Musculoskeletal: Reports none; Denies arthralgias, back pain, difficulty walking, extremity pain, muscle weakness or myalgias Integumentary Reports none; Denies abscess or rash Neurologic Neurologic: Reports none and confusion; Denies abnormal gait, focal weakness, frequent falls, headache(s), loss of vision, nu (more content not included)... Normal [facility] Eosinophil percentageOrdered By: Chris Cole on 09-16-2024 Eosinophils/100 WBC (Bld) 3.7 % 0-5 [facility] Erythrocyte distribution wid th ratioOrdered By: Chris Cole on 09-16-2024 Erythrocyte distribution width (RBC) [Ratio] 13.2 % 11.6-14.6 [facility] Erythrocyte distribution wid th standard deviationOrdered By: Remus Cole on 09-16-2024 Erythrocyte distribution width (RBC) [Ratio] 46.3 fl High 35.1-43.9 [facility] Glomerular filtration rate ( GFR) estimation/1.73 sq m using serum, plasma, or whole bOrdered By: Chris Cole on 09-16-2024 GFR/1.73 sq M.predicted among non-blacks MDRD (S/P/Bld) [Vol rate/Area] 87 mL/min/{1.73_m2} >60 [facility] Comment on above: mL/min/1.73m2 CKD-EP I Creatinine Equation (2020) H AND P Exam - [facility] 09-16-2024 H&P Exam - Hospitalist [facility] Medical Records Department [address] [place] [address] H P Exam - Hospitalist 09/16/242118 MR#: [id number] Acct: [id number] Name: TYLOR PEDERSEN Rep #: [id number] : 1940 83 From: Olivia Walters MD PCP: Dr. Shayne Zaidi MD Status:ADM MARICARMEN Location: [place] [address] HPI - General General Date of Admission: 09/16/24 Date of Service: 09/16/24 Chief Complaint: Confusion HPI Narrative The patient is an 83 y/o M w/ PMHx: Obesity, HTN, HLD, CAD s/p CABG x 2 and PCI, HFpEF, Hypothyroidism, Chronic neuropathy, CKD stage II per GFR trending, Hx CVA, Anxiety and Depression/Panic attacks, recent discharge 09/12/24 following evaluation and treatment of chronic hypoxic respiratory failure secondary to acute HFrEF exacerbation in addition to aspiration pneumonia discharged on Augmentin as well as PAF with RVR with atenolol increased by cardiology during previous evaluation and continuation of patient Coumadin with INR trending to now re-presents to the [facility] ED on 09/16/2024 with history of reported confusion that started the evening prior with family noting concern for hallucinations with patient upon arrival not understanding why he was brought to the ED but noting he is very anxious and requesting medication. Workup in the ED included T97.7, heart 95, BP 122/72, respiratory rate 14, 97% on 3 L nasal cannula with most recent repeat vitals T98.3, heart rate 100, BP 149/72, respiratory rate 20, 98% on 3 L nasal cannula, CBC with WBC 18, hemoglobin 13.9, platelet 201 with left shift, coags with INR 3.1, BMP with chloride 93,, taxine 35.6, anion gap 9, BUN/creatinine 24/0.81, glucose 112, urinalysis with no obvious evidence of UTI, CT brain with no acute intracranial finding, chest x-ray similar to recent however waiting on final read per radiology. In the ED patient ministered Ativan 1 mg IV x 1 secondary to complaints of significant sensation of anxiety requesting medication. In the ED patient administered MIVFs. [facility] Medical History Atherosclerosis of coronary artery of [place] heart without angina pectoris Prostate CA Stroke [...] mg PO DAILY@0800 health 2 12/14/21 History potassium chloride 10 mEq 20 meq PO DAILY supplement 2 12/14/21 History tablet,extended release albuterol sulfate 90 mcg/actuation 2 puff inhalation Q4H PRN PRN Unknown Rx aerosol inhaler (Ventolin HFA) Wheezing ##1 fluticasone 250 mcg-salmeterol 50 1 inh inhalation Q12H 09/10/24 Un known History mcg/dose blistr powdr for inhalation gabapentin 300 mg capsule 300 mg PO BID 09/10/24 Unknown His tory nitroglycerin 0.3 mg sublingual 0.3 mg sublingual Q5M PRN chest Unknown History tablet pain paroxetine HCl 40 mg tablet 40 mg PO DAILY 09/10/24 Unknown Hi story amoxicillin 875 mg-potassium 1 tab PO BIDCM #11 tabs 09/12/24 U nknown Rx clavulanate 125 mg tablet atenolol 50 mg tablet 50 mg PO DAILY #30 tabs 09/12/24 U nknown Rx furosemide 40 mg tablet (Lasix) 40 mg PO BID #60 tabs 09/12/24 Unk nown Rx warfarin 2.5 mg tablet (Jantoven) 5 mg (2 x 2.5 mg) PO 1700 #60 tab s 09/12/24 Unknown Rx Allergy/AdvReac Type Severity Reaction Status Date / Time oxycodone (From Percodan) Allergy Other Verified 09/16/24 18:21 Surgical History History of coronary artery stent placement (12/16/21) Cataract extraction status History of hip replacement History of open heart surgery Social History (Updated 09/16/24 @ 21:[address] Olivia Walters MD) household members: family Smoking Status: Former smoker quit date: 02/08/92 pack-years: 37 Tobacco: How many years used: 20 alcohol intake: never substance use type: does not use ROS Review of Systems ROS Unobtainable: due to encephalopathy Vital Signs Vital Signs Vital Signs: 09/16/24 18:21 09/16/24 18:27 09/16/24 18:31 Temperature 97.7 F L 98.2 F Temperature Source Temporal Oral Pulse Rate 95 100 Respiratory Rate 14 22 H Respiratory Pattern Normal Blood Pressure 122/72 H 133/74 H Blood Pressure Mean 88 93 Pulse Ox 97 95 Oxygen Delivery Method Nasal Cannula Nasal Cannula Oxygen Flow Rate (L/min) (more content not included)... Normal [facility] Hematocrit Auto (Bld) [Volum e fraction]Ordered By: Chris Cole on 09-16-2024 Hematocrit (Bld) [Volume fraction] 44.0 % 40-54 [facility] Hemoglobin measurementOrdere d By: [facility] on 09-16-2024 Hemoglobin (Bld) [Mass/Vol] 13.9 g/dL 13.0-16.5 [facility] Hyaline casts LM.LPF (Urine sed) [#/Area]Ordered By: Chris Cole on 09-16-2024 Hyaline casts (Urine sed) [#/Area] 10 /[LPF] 0-5 [facility] Immature granulocytes/100 WB C Auto (Bld)Ordered By: Chris Cole on 09-16-2024 Immature granulocytes/100 WBC (Bld) 1.800 % High 0.0-0.9 [facility] Comment on above: IG% - Immature Granu locytes (promyelocytes, myelocytes and metamyelocytes) > 1% indicates that a LEFT SHIFT is Present. International normalized rat io (INR) calculationOrdered By: Chris Cole on 09-16-2024 INR Coag (Bld) [Relative time] 3.1 {INR} [facility] Ketones Test strip Ql (U)Ord ered By: [facility] on 09-16-2024 Ketones Ql (U) Negative Negative [facility] L501.4021on 09-16-2024 Trop T High Sen 12 ng/L Normal <=22 [facility] Comment on above: Performed By: #### L 500.4100, L503.7505, L300.8000, L500.4050, L100.0100, L503.0106, L506.0200, L501.5200, L501.4021, L300.3900, L501.2300, L501.9520 #### [facility] [address] [place], [address] L509.7001on 09-16-2024 Procalcitonin 0.09 ng/mL Normal <=0.10 [facility] Comment on above: Order Comment: Comme nts: may add to ED labs Result Comment: Inte rpretation: <0.10-0.25 ng/mL: Antibiotic therapy discouraged. Bacterial infection unlikely. 0.25-0.50 ng/mL: Antibiotic therapy encouraged. Bacterial infection possible. >0.50 ng/mL: Antibiotic therapy strongly encouraged. Suggestive of presence of bacterial infection. PCT should always be interpreted in the clinical context of the patient. Therefore, clinicians should use the PCT results in conjunction with other laboratory findings and clinical signs of the patient. Performed By: #### L 500.4100, L503.7505, L300.8000, L500.4050, L100.0100, L503.0106, L506.0200, L501.5200, L501.4021, L300.3900, L501.2300, L501.9520 #### [facility] [address] [place], [place], [address] MCV (mean corpuscular volume ) determinationOrdered By: Chris Cole on 09-16-2024 MCV (RBC) [Entitic vol] 95.2 fL High 80-94 [facility] Magnesiumon 09-16-2024 Magnesium [Mass/Vol] 2.3 mg/dL High 1.5-2.2 [facility] Comment on above: Order Comment: Comme nts: may add to ED labs Performed By: #### L 500.4100, L503.7505, L300.8000, L500.4050, L100.0100, L503.0106, L506.0200, L501.5200, L501.4021, L300.3900, L501.2300, L501.9520 #### [facility] [address] [place], [address] Mean corpuscular hemoglobin (MCH) determinationOrdered By: Chris Cole on 09-16-2024 MCH (RBC) [Entitic mass] 30.1 pg 27.0-32.0 [facility] Mean corpuscular hemoglobin concentration (MCHC) determinationOrdered By: Chris Cole on 09-16-2024 MCHC (RBC) [Mass/Vol] 31.6 g/dL Low 32-36 [facility] Mean platelet volume determi nationOrdered By: Chris Cole on 09-16-2024 Platelet mean volume (Bld) [Entitic vol] 9.1 fL 6.2-12.0 [facility] Measurement, pHOrdered By: Yazmin Walters on 09-16-2024 pH (Unsp spec) 7.41 [pH] 7.35-7.45 [facility] Microscopic analysis of urin e for red blood cells (RBC)Ordered By: Chris Cole on 09-16-2024 Microscopic analysis of urine for red blood cells (RBC) 5-10 SEEN /hpf 0-5 [facility] Monocyte percentageOrdered B y: Chris Cole on 09-16-2024 Monocytes/100 WBC (Bld) 4.1 % 0-10 [facility] Mucus LM Ql (Urine sed)Order ed By: Chris Cole on 09-16-2024 Mucus Ql (Urine sed) 0 SEEN /hpf [facility] Neutrophil percentageOrdered By: Chris Cole on 09-16-2024 Neutrophils/100 WBC (Bld) 85.4 % High 47-70 [facility] Nitrite Test strip Ql (U)Ord ered By: Chris Cole on 09-16-2024 Nitrite Ql (U) Negative Negative [facility] No Panel InformationOrdered By: Olivia Walters on 09-16-2024 Blood Gas Sample Site R Radial [facility] Blood Gas Specimen Type ART [facility] Blood Gas Vent Mode Not entered [facility] Oxygen Delivery Device Cannula Wo [facility] Nucleated red blood cell per centageOrdered By: Chris Cole on 09-16-2024 Nucleated RBC/100 WBC (Bld) [Ratio] 0 % 0-5 [facility] Platelet countOrdered By: Chani Cole on 09-16-2024 Platelets (Bld) [#/Vol] 201 10*3/uL 150-450 [facility] Potassium measurement (mass/ volume)Ordered By: Chris Cole on 09-16-2024 Potassium (Unsp spec) [Mass/Vol] 4.6 mmol/L 3.3-5.1 [facility] Procalcitonin [Mass/volume] in Serum or Plasma by ImmunoassayOrdered By: Olivia Walters on 09-16-2024 Procalcitonin IA [Mass/Vol] 0.09 ng/mL <0.11 [facility] Comment on above: Interpretation:<0.10 -0.25 ng/mL: Antibiotic therapy discouraged. Bacterial infection unlikely.0.25-0.50 ng/mL: Antibiotic therapy encouraged. Bacterial infection possible.>0.50 ng/mL: Antibiotic therapy strongly encouraged. Suggestive of presence of bacterial infection.PCT should always be interpreted in the clinical context of the patient. Therefore, clinicians should use the PCT results in conjunction with other laboratory findings and clinical signs of the patient. Protein Test strip Ql (U)Ord ered By: Chris Cole on 09-16-2024 Protein Ql (U) 30 mg/dl High Negative [facility] Prothrombin Time w/INRon INR Coag (PPP) [Relative time] 3.1 {INR} Normal [facility] Comment on above: Performed By: #### L 501.9985 #### [facility] [address] [place], [place], [phone] PT Coag (PPP) [Time] 32.4 s High 11.7-14.9 [facility] Comment on above: Performed By: #### L 501.9985 #### [facility] [address] [place], [address] Prothrombin timeOrdered By: Chris Cole on 09-16-2024 PT Coag (PPP) [Time] 32.4 s High 11.7-14.9 [facility] RBC Auto (Bld) [#/Vol]Ordere d By: Chris Cole on 09-16-2024 RBC (Bld) [#/Vol] 4.62 10*6/uL 4.6-6.2 [facility] Serum creatinine measurement (mass/volume)Ordered By: Chris Cole on 09-16-2024 Creatinine [Mass/Vol] 0.81 mg/dL 0.70-1.20 [facility] Serum glucose measurement (m ass/volume)Ordered By: Chris Cole on 09-16-2024 Glucose [Mass/Vol] 112 mg/dL High 70-99 [facility] Serum or plasma calcium regan urement (mass/volume)Ordered By: Chris Cole on 09-16-2024 Calcium [Mass/Vol] 9.3 mg/dL 7.6-11.0 [facility] Serum or plasma urea nitroge n measurement (mass/volume)Ordered By: Chris Cole on 09-16-2024 Urea nitrogen [Mass/Vol] 24 mg/dL High 4-19 [facility] Sodium levelOrdered By: Riri Cole on 09-16-2024 Sodium [Moles/Vol] 138 mmol/L 133-145 [facility] Squamous epithelial cells de tection in urine sediment by light microscopyOrdered By: Chris oCle on 09-16-2024 Epithelial cells.squamous LM Ql (Urine sed) 0-5 SEEN /hpf 0-5 [facility] Total carbon dioxide measure mentOrdered By: Olivia Walters on 09-16-2024 CO2 [Moles/Vol] 42 mmol/L [facility] Troponin T.cardiac [Mass/vol ume] in Serum or Plasma by High sensitivity methodOrdered By: Olivia Walters on 09-16-2024 Troponin T.cardiac High sensitivity method [Mass/Vol] 12 ng/L <22 [facility] Comment on above: Delta: 8 on 09/10/24 -0319 Urinalysis, Completeon 09-16 BACTERIA 1+ /hpf Normal None Seen [facility] Comment on above: Order Comment: CLEAN CATCH Performed By: #### L 400.0001 ####[facility] [address] [place], [address] EPI,SQUAMOUS 0-5 SEEN Normal 0-5 [facility] Comment on above: Order Comment: CLEAN CATCH Performed By: #### L 400.0001 ####[facility] [address] [place], [address] RBC 5-10 SEEN Normal 0-5 [facility] Comment on above: Order Comment: CLEAN CATCH Performed By: #### L 400.0001 ####[facility] [address] [place], [address] WBC 0-5 SEEN Normal 0-5 [facility] Comment on above: Order Comment: CLEAN CATCH Performed By: #### L 400.0001 ####[facility] [address] [place], [address] CAST,HYALINE 10-25 SEEN Normal 0-5 [facility] Comment on above: Order Comment: CLEAN CATCH Performed By: #### L 400.0001 ####[facility] [address] [place], [address] Mucus Ql (Urine sed) 0 SEEN Normal [facility] Comment on above: Order Comment: CLEAN CATCH Performed By: #### L 400.0001 ####[facility] [address] [place], [address] Urine clarityOrdered By: Fidelia Cole on 09-16-2024 Clarity (U) Clear Clear [facility] Urine color determinationOrd ered By: Chris Cole on 09-16-2024 Color (U) Yellow Yellow [facility] Urine glucose detectionOrder ed By: Chris Cole on 09-16-2024 Glucose Ql (U) Normal mg/dl Normal [facility] Urine leukocyte esterase det ection by dipstickOrdered By: Chris Cole on 09-16-2024 Leukocyte esterase Test strip Ql (U) 25 /ul High Negative [facility] Urine pHOrdered By: Chris powell on 09-16-2024 pH (U) 7.0 [pH] 5.0 - 8.0 [facility] Urine sediment bacteria coun t by microscopy (number/high power field)Ordered By: Chris Cole on 09-16-2024 Bacteria LM.HPF (Urine sed) [#/Area] 1 /[HPF] None Seen [facility] Urine specific gravity measu rementOrdered By: Chris Cole on 09-16-2024 Specific gravity (U) [Rel density] 1.010 1.002-1.030 [facility] Urine urobilinogen measureme ntOrdered By: Chris Cole on 09-16-2024 Urobilinogen Ql (U) 4 mg/dl High Normal [facility] Venous blood ammonia measure mentOrdered By: Olivia Walters on 09-16-2024 Ammonia (P) [Moles/Vol] 31.9 umol/L 16-60 [facility] White blood cell (WBC) count Ordered By: Chris Cole on 09-16-2024 WBC (Bld) [#/Vol] 18.0 10*3/uL High 4.4-11.0 [facility] White blood cell countOrdere d By: Chris Cole on 09-16-2024 White blood cell count 0-5 SEEN /hpf 0-5 [facility] Anion gap in Serum or Plasma Ordered By: Aayush Sibley on 09-12-2024 Anion gap [Moles/Vol] 11 mmol/L 5-15 [facility] BUN/creatinine ratioOrdered By: Aayush Sibley on 09-12-2024 Urea nitrogen/Creatinine [Mass ratio] 48.1 mg/mg High 10-20 [facility] Basic Metabolic Profile (BMP )on 09-12-2024 BUN/CRE 48.1 RATIO High 10- [facility] Comment on above: Performed By: #### L 500.4100, L503.7505, L300.8000, L500.4050, L100.0100, L503.0106, L506.0200, L501.5200, L501.4021, L300.3900, L501.2300, L501.9520 #### [facility] [address] [place], [place], [phone] Calcium [Mass/Vol] 8.9 mg/dL Normal 7.6-11.0 [facility] Comment on above: Performed By: #### L 500.4100, L503.7505, L300.8000, L500.4050, L100.0100, L503.0106, L506.0200, L501.5200, L501.4021, L300.3900, L501.2300, L501.9520 #### [facility] [address] [place], [address] Chloride [Moles/Vol] 96 mmol/L Low 98-108 [facility] Comment on above: Performed By: #### L 500.4100, L503.7505, L300.8000, L500.4050, L100.0100, L503.0106, L506.0200, L501.5200, L501.4021, L300.3900, L501.2300, L501.9520 #### [facility] [address] [place], [place], [phone] (915) CO2 [Moles/Vol] 34.3 mmol/L High 21.0-32.0 [facility] Comment on above: Performed By: #### L 500.4100, L503.7505, L300.8000, L500.4050, L100.0100, L503.0106, L506.0200, L501.5200, L501.4021, L300.3900, L501.2300, L501.9520 #### [facility] [address] [place], [address] Creatinine [Mass/Vol] 0.92 mg/dL Normal 0.70-1.20 [facility] Comment on above: Performed By: #### L 500.4100, L503.7505, L300.8000, L500.4050, L100.0100, L503.0106, L506.0200, L501.5200, L501.4021, L300.3900, L501.2300, L501.9520 #### [facility] [address] [place], [place], [phone] (448) ECRCL 69.17 ml/min Normal 50-250 [facility] Comment on above: Performed By: #### L 500.4100, L503.7505, L300.8000, L500.4050, L100.0100, L503.0106, L506.0200, L501.5200, L501.4021, L300.3900, L501.2300, L501.9520 #### [facility] [address] [place], [place], [phone] GAP 11 Normal 5-15 [facility] Comment on above: Performed By: #### L 500.4100, L503.7505, L300.8000, L500.4050, L100.0100, L503.0106, L506.0200, L501.5200, L501.4021, L300.3900, L501.2300, L501.9520 #### [facility] [address] [place], [address] GFR/1.73 sq M.predicted among non-blacks MDRD (S/P/Bld) [Vol rate/Area] 82 mL/min/{1.73_m2} Normal >60 [facility] Comment on above: Result Comment: mL/m in/1.73m2 CKD-EPI Creatinine Equation (2020) Performed By: #### L 500.4100, L503.7505, L300.8000, L500.4050, L100.0100, L503.0106, L506.0200, L501.5200, L501.4021, L300.3900, L501.2300, L501.9520 #### [facility] [address] [place], [address] Glucose [Mass/Vol] 120 mg/dL High 70-99 [facility] Comment on above: Performed By: #### L 500.4100, L503.7505, L300.8000, L500.4050, L100.0100, L503.0106, L506.0200, L501.5200, L501.4021, L300.3900, L501.2300, L501.9520 #### [facility] [address] [place], [address] Potassium [Moles/Vol] 4.0 mmol/L Normal 3.3-5.1 [facility] Comment on above: Result Comment: Hemo lysis present, Results??could be affected. ?? Performed By: #### L 500.4100, L503.7505, L300.8000, L500.4050, L100.0100, L503.0106, L506.0200, L501.5200, L501.4021, L300.3900, L501.2300, L501.9520 #### [facility] [address] [place], [address] Sodium [Moles/Vol] 142 mmol/L Normal 133-145 [facility] Comment on above: Performed By: #### L 500.4100, L503.7505, L300.8000, L500.4050, L100.0100, L503.0106, L506.0200, L501.5200, L501.4021, L300.3900, L501.2300, L501.9520 #### [facility] [address] [place], [place], [phone] (244) Urea nitrogen [Mass/Vol] 44 mg/dL High 4-19 [facility] Comment on above: Performed By: #### L 500.4100, L503.7505, L300.8000, L500.4050, L100.0100, L503.0106, L506.0200, L501.5200, L501.4021, L300.3900, L501.2300, L501.9520 #### [facility] [address] [place], [address] Carbon dioxide, total [Moles /volume] in Central venous bloodOrdered By: Aayush Sibley on 09-12-2024 CO2 [Moles/Vol] 34.3 mmol/L High 21.0-32.0 [facility] Chest PA and Lateralon 09-12 Chest PA and Lateral [facility] Imaging Services [address] [place] [address] Chest PA and Lateral MR#: [id number] Acct: [id number] Name: TYLOR PEDERSEN Rep #: [id number] : 1940 M 83 From: Jad Hamlin MD PCP: Dr. Shayne Zaidi MD Status: ADM IN Study: Chest PA and Lateral Date of Exam: 09/12/24 Exam# [id number] Ordering Dr: Aayush Sibley DO PROCEDURE: CHEST [...] seen on recent comparison CT Reading Location: [place] [address] CC: Dr. Shayne Zaidi MD; Dr. Aayush Sibley DO Stained Glass Artist: Signed Normal [facility] Chloride assayOrdered By: Velia Sbiley on 09-12-2024 Chloride [Moles/Vol] 96 mmol/L Low 98-108 [facility] Discharge Instructionon 08 Discharge Instruction [facility] Medical Records Department [address] [place] [address] Instructions for Home/Discharge Instructions 09/12/24 1439 MR#: [id number] Acct: [id number] Name: TYLOR PEDERSEN Rep #: [id number] : 1940 83 From: Aayush Sibley DO [...] Asif; Patricia Burden; Martínez Mclean; Omar Hidalgo; Tylor Rose BROOM HANDLE DIPPER; Jenny Yancey PA; Moses Alexis Discharge Orders/Prescriptions [...] rechecked) Jenny Yancey PA [Med Staff - [facility]] - Within 2 Weeks (Call for an appointment) Disposition Disposition (needs filled in before D/C Order can be placed): Home, Self Care 09/12/24 1503 Aayush Sibley DO CC: GABE Rose; Dr. Douglas [...] MD; JI Valencia; JI Burgos Signed Normal [facility] Glomerular filtration rate ( GFR) estimation/1.73 sq m using serum, plasma, or whole bOrdered By: Aayush Sibley on 09-12-2024 GFR/1.73 sq M.predicted among non-blacks MDRD (S/P/Bld) [Vol rate/Area] 82 mL/min/{1.73_m2} >60 [facility] Comment on above: mL/min/1.73m2 CKD-EP I Creatinine Equation (2020) International normalized rat io (INR) calculationOrdered By: Aayush Sibley on 09-12-2024 INR Coag (Bld) [Relative time] 1.4 {INR} [facility] Potassium measurement (mass/ volume)Ordered By: Aayush Sibley on 09-12-2024 Potassium (Unsp spec) [Mass/Vol] 4.0 mmol/L 3.3-5.1 [facility] Comment on above: Hemolysis present, R esults could be affected. Prothrombin Time w/INRon INR Coag (PPP) [Relative time] 1.4 {INR} Normal [facility] Comment on above: Performed By: #### L 500.4100, L503.7505, L300.8000, L500.4050, L100.0100, L503.0106, L506.0200, L501.5200, L501.4021, L300.3900, L501.2300, L501.9520 #### [facility] [address] [place], [place], [id number] PT Coag (PPP) [Time] 17.8 s High 11.7-14.9 [facility] Comment on above: Performed By: #### L 500.4100, L503.7505, L300.8000, L500.4050, L100.0100, L503.0106, L506.0200, L501.5200, L501.4021, L300.3900, L501.2300, L501.9520 #### [facility] [address] [place], [place], [address] Prothrombin timeOrdered By: Aayush Sibley on 09-12-2024 PT Coag (PPP) [Time] 17.8 s High 11.7-14.9 [facility] Serum creatinine measurement (mass/volume)Ordered By: Aayush Sibley on 09-12-2024 Creatinine [Mass/Vol] 0.92 mg/dL 0.70-1.20 [facility] Serum glucose measurement (m ass/volume)Ordered By: Aayush Sibley on 09-12-2024 Glucose [Mass/Vol] 120 mg/dL High 70-99 [facility] Serum or plasma calcium regan urement (mass/volume)Ordered By: Aayush Sibley on 09-12-2024 Calcium [Mass/Vol] 8.9 mg/dL 7.6-11.0 [facility] Serum or plasma urea nitroge n measurement (mass/volume)Ordered By: Aayush Sibley on 09-12-2024 Urea nitrogen [Mass/Vol] 44 mg/dL High 4-19 [facility] Sodium levelOrdered By: Aayush Sibley on 09-12-2024 Sodium [Moles/Vol] 142 mmol/L 133-145 [facility] Basic Metabolic Profile (BMP )on 09-11-2024 BUN/CRE 43.1 RATIO High 10-20 [facility] Comment on above: Performed By: #### L 500.4100, L503.7505, L300.8000, L500.4050, L100.0100, L503.0106, L506.0200, L501.5200, L501.4021, L300.3900, L501.2300, L501.9520 #### [facility] [address] [place], [place], [address] Calcium [Mass/Vol] 9.0 mg/dL Normal 7.6-11.0 [facility] Comment on above: Performed By: #### L 500.4100, L503.7505, L300.8000, L500.4050, L100.0100, L503.0106, L506.0200, L501.5200, L501.4021, L300.3900, L501.2300, L501.9520 #### [facility] [address] [place], [place], [phone] Chloride [Moles/Vol] 96 mmol/L Low 98-108 [facility] Comment on above: Performed By: #### L 500.4100, L503.7505, L300.8000, L500.4050, L100.0100, L503.0106, L506.0200, L501.5200, L501.4021, L300.3900, L501.2300, L501.9520 #### [facility] [address] [place], [place], [address] CO2 [Moles/Vol] 26.8 mmol/L Normal 21.0-32.0 [facility] Comment on above: Performed By: #### L 500.4100, L503.7505, L300.8000, L500.4050, L100.0100, L503.0106, L506.0200, L501.5200, L501.4021, L300.3900, L501.2300, L501.9520 #### [facility] [address] [place], [place], [address] Creatinine [Mass/Vol] 0.88 mg/dL Normal 0.70-1.20 [facility] Comment on above: Performed By: #### L 500.4100, L503.7505, L300.8000, L500.4050, L100.0100, L503.0106, L506.0200, L501.5200, L501.4021, L300.3900, L501.2300, L501.9520 #### [facility] [address] [place], [place], [phone] ECRCL 72.70 ml/min Normal 50-250 [facility] Comment on above: Performed By: #### L 500.4100, L503.7505, L300.8000, L500.4050, L100.0100, L503.0106, L506.0200, L501.5200, L501.4021, L300.3900, L501.2300, L501.9520 #### [facility] [address] [place], [place], [phone] GAP 15 Normal 5-15 [facility] Comment on above: Performed By: #### L 500.4100, L503.7505, L300.8000, L500.4050, L100.0100, L503.0106, L506.0200, L501.5200, L501.4021, L300.3900, L501.2300, L501.9520 #### [facility] [address] [place], [address] GFR/1.73 sq M.predicted among non-blacks MDRD (S/P/Bld) [Vol rate/Area] 85 mL/min/{1.73_m2} Normal >60 [facility] Comment on above: Result Comment: mL/m in/1.73m2 CKD-EPI Creatinine Equation (2020) Performed By: #### L 500.4100, L503.7505, L300.8000, L500.4050, L100.0100, L503.0106, L506.0200, L501.5200, L501.4021, L300.3900, L501.2300, L501.9520 #### [facility] [address] [place], [address] Glucose [Mass/Vol] 132 mg/dL High 70-99 [facility] Comment on above: Performed By: #### L 500.4100, L503.7505, L300.8000, L500.4050, L100.0100, L503.0106, L506.0200, L501.5200, L501.4021, L300.3900, L501.2300, L501.9520 #### [facility] [address] [place], [address] Potassium [Moles/Vol] 3.9 mmol/L Normal 3.3-5.1 [facility] Comment on above: Result Comment: Hemo lysis present, Results??could be affected. ?? Performed By: #### L 500.4100, L503.7505, L300.8000, L500.4050, L100.0100, L503.0106, L506.0200, L501.5200, L501.4021, L300.3900, L501.2300, L501.9520 #### [facility] [address] [place], [address] Sodium [Moles/Vol] 138 mmol/L Normal 133-145 [facility] Comment on above: Performed By: #### L 500.4100, L503.7505, L300.8000, L500.4050, L100.0100, L503.0106, L506.0200, L501.5200, L501.4021, L300.3900, L501.2300, L501.9520 #### [facility] [address] [place], [place], [id number] Urea nitrogen [Mass/Vol] 38 mg/dL High 4-19 [facility] Comment on above: Performed By: #### L 500.4100, L503.7505, L300.8000, L500.4050, L100.0100, L503.0106, L506.0200, L501.5200, L501.4021, L300.3900, L501.2300, L501.9520 #### [facility] [address] [place], [place], [phone] [facility] [facility] Telephone (FPWAPATY) TYLOR PEDERSEN ([id number]) 1940 M Date Time Provider Department 09/11[facility] During your visit today, we recorded the following information about you: Cassandra Ann LPN 09/11/2024 1:31 PM Signed Received 09/11/[address] [facility]. Placed in provider's inbox for review. Route to [place] for scanning. 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. Placed in provider's inbox for review. 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 A CXR at [facility] showed right hemidiaphragm elevation and left [...] Result: 5= enters airways/contacts vocal folds/not ejected [place] Thick Liquid via small single sip: cup: Result: 2= enter airway/above vocal folds/ejected [place] Thick Liquid via small single sip: cup Trial 2: Result: 3= enters airways/above vocal folds/not ejected [place] Thick Liquid via small single sip: cup [...] Cookie: Result: 1= does not enter airway [place] Thick Liquid via small single sip: cup [...] head i (more content not included)... Normal [facility] 12 Lead EKGon 09-10-2024 12 Lead EKG [facility] Cardiovascular Services [address] [place] [address] 12 Lead EKG 09/10/24 0122 MR#: [id number] Acct: [id number] Name: TYLOR PEDERSEN Rep #: [id number] : 1940 83 From: Dallas Muller MD Attending Dr: Dr. Aayush Sibley DO Status: A DM IN Ordering Dr: Kristopher Valencia DO Date: 09/10/24 Location: [facility] Sex: M C Admitted: 09/10/24 Test [...] found Confirmed by RENZO GRAHAM, DALLAS ([id number]), newspaper copy editor JESUS HERNANDEZ ([id number]) on 09/10/2024 8:29:31 AM Referred By: DR Valencia Confirmed By: DALLAS MULLER MD 09/10/24828 Date Dallas Muller MD CC: Dr. Kristopher Valencia DO; Dr. Shayne Zaidi MD; Dr. Aayush Silbey DO Signed Normal [facility] Absolute lymphocyte countOrd ered By: Kristopher Diamond on 09-10-2024 Lymphocytes Auto (Unsp spec) [#/Vol] 0.24 10*3/uL Low 0.83-4.51 [facility] Absolute neutrophil countOrd ered By: Kristopher Diamond on 09-10-2024 Neutrophils (Bld) [#/Vol] 10.2 10*3/uL High 2.0-7.7 [facility] Automated lymphocyte count a s percentage of total leukocytesOrdered By: Kristopher Diamond on 09-10-2024 Lymphocytes/100 WBC Auto (Unsp spec) 2.2 % Low 19-41 [facility] Basophil percentageOrdered B y: Kristopher Diamond on 09-10-2024 Basophils/100 WBC (Bld) 0.2 % 0-1 [facility] Bilirubin Test strip Ql (U)O rdered By: Kristopher Diamond on 09-10-2024 Bilirubin Ql (U) Negative Negative [facility] Bilirubin, totalOrdered By: Kristopher Diamond on 09-10-2024 Bilirubin [Mass/Vol] 0.73 mg/dL 0.00-1.30 [facility] CBC W/Diff, Automatedon 08-0 4-2024 Absolute Lymph 0.24 X10 3/uL Low 0.83-4.51 [facility] Comment on above: Performed By: #### L 500.4100, L503.7505, L300.8000, L500.4050, L100.0100, L503.0106, L506.0200, L501.5200, L501.4021, L300.3900, L501.2300, L501.9520 #### [facility] [address] [place], [address] Absolute Neut 10.2 X10 3/uL High 2.0-7.7 [facility] Comment on above: Performed By: #### L 500.4100, L503.7505, L300.8000, L500.4050, L100.0100, L503.0106, L506.0200, L501.5200, L501.4021, L300.3900, L501.2300, L501.9520 #### [facility] [address] [place], [address] (797) Basophils/100 WBC (Bld) 0.2 % Normal 0-1 [facility] Comment on above: Performed By: #### L 500.4100, L503.7505, L300.8000, L500.4050, L100.0100, L503.0106, L506.0200, L501.5200, L501.4021, L300.3900, L501.2300, L501.9520 #### [facility] [address] [place], [place], [phone] (775) Eosinophils/100 WBC (Bld) 0.0 % Normal 0-5 [facility] Comment on above: Performed By: #### L 500.4100, L503.7505, L300.8000, L500.4050, L100.0100, L503.0106, L506.0200, L501.5200, L501.4021, L300.3900, L501.2300, L501.9520 #### [facility] [address] [place], [address] Erythrocyte distribution width (RBC) [Ratio] 13.2 % Normal 11.6-14.6 [facility] Comment on above: Performed By: #### L 500.4100, L503.7505, L300.8000, L500.4050, L100.0100, L503.0106, L506.0200, L501.5200, L501.4021, L300.3900, L501.2300, L501.9520 #### [facility] [address] [place], [address] Hematocrit (Bld) [Volume fraction] 44.1 % Normal 40-54 [facility] Comment on above: Performed By: #### L 500.4100, L503.7505, L300.8000, L500.4050, L100.0100, L503.0106, L506.0200, L501.5200, L501.4021, L300.3900, L501.2300, L501.9520 #### [facility] [address] [place], [address] Hemoglobin (Bld) [Mass/Vol] 14.3 g/dL Normal 13.0-16.5 [facility] Comment on above: Performed By: #### L 500.4100, L503.7505, L300.8000, L500.4050, L100.0100, L503.0106, L506.0200, L501.5200, L501.4021, L300.3900, L501.2300, L501.9520 #### [facility] [address] [place], [address] IG% 0.300 Normal 0.0-0.9 [facility] Comment on above: Result Comment: IG% - Immature Granulocytes (promyelocytes, myelocytes and metamyelocytes) > 1% indicates that a LEFT SHIFT is Present. Performed By: #### L 500.4100, L503.7505, L300.8000, L500.4050, L100.0100, L503.0106, L506.0200, L501.5200, L501.4021, L300.3900, L501.2300, L501.9520 #### [facility] [address] [place], [address] Lymphocytes/100 WBC (Bld) 2.2 % Low 19-41 [facility] Comment on above: Performed By: #### L 500.4100, L503.7505, L300.8000, L500.4050, L100.0100, L503.0106, L506.0200, L501.5200, L501.4021, L300.3900, L501.2300, L501.9520 #### [facility] [address] [place], [address] MCH (RBC) [Entitic mass] 31.0 pg Normal 27.0-32.0 [facility] Comment on above: Performed By: #### L 500.4100, L503.7505, L300.8000, L500.4050, L100.0100, L503.0106, L506.0200, L501.5200, L501.4021, L300.3900, L501.2300, L501.9520 #### [facility] [address] [place], [address] MCHC (RBC) [Mass/Vol] 32.4 g/dL Normal 32-36 [facility] Comment on above: Performed By: #### L 500.4100, L503.7505, L300.8000, L500.4050, L100.0100, L503.0106, L506.0200, L501.5200, L501.4021, L300.3900, L501.2300, L501.9520 #### [facility] [address] [place], [address] MCV (RBC) [Entitic vol] 95.7 fL High 80-94 [facility] Comment on above: Performed By: #### L 500.4100, L503.7505, L300.8000, L500.4050, L100.0100, L503.0106, L506.0200, L501.5200, L501.4021, L300.3900, L501.2300, L501.9520 #### [facility] [address] [place], [address] Monocytes/100 WBC (Bld) 2.8 % Normal 0-10 [facility] Comment on above: Performed By: #### L 500.4100, L503.7505, L300.8000, L500.4050, L100.0100, L503.0106, L506.0200, L501.5200, L501.4021, L300.3900, L501.2300, L501.9520 #### [facility] [address] [place], [address] Neutrophils/100 WBC (Bld) 94.5 % High 47-70 [facility] Comment on above: Performed By: #### L 500.4100, L503.7505, L300.8000, L500.4050, L100.0100, L503.0106, L506.0200, L501.5200, L501.4021, L300.3900, L501.2300, L501.9520 #### [facility] [address] [place], [address] Nucleated RBC (Bld) [#/Vol] 0 10*3/uL Normal 0-5 [facility] Comment on above: Performed By: #### L 500.4100, L503.7505, L300.8000, L500.4050, L100.0100, L503.0106, L506.0200, L501.5200, L501.4021, L300.3900, L501.2300, L501.9520 #### [facility] [address] [place], [address] Platelet mean volume (Bld) [Entitic vol] 9.2 fL Normal 6.2-12.0 [facility] Comment on above: Performed By: #### L 500.4100, L503.7505, L300.8000, L500.4050, L100.0100, L503.0106, L506.0200, L501.5200, L501.4021, L300.3900, L501.2300, L501.9520 #### [facility] [address] [place], [address] Platelets (Bld) [#/Vol] 224 10*3/uL Normal 150-450 [facility] Comment on above: Performed By: #### L 500.4100, L503.7505, L300.8000, L500.4050, L100.0100, L503.0106, L506.0200, L501.5200, L501.4021, L300.3900, L501.2300, L501.9520 #### [facility] [address] [place], [address] RBC (Bld) [#/Vol] 4.61 10*6/uL Normal 4.6-6.2 [facility] Comment on above: Performed By: #### L 500.4100, L503.7505, L300.8000, L500.4050, L100.0100, L503.0106, L506.0200, L501.5200, L501.4021, L300.3900, L501.2300, L501.9520 #### [facility] [address] [place], [address] RDW SD 47.6 fl High 35.1-43.9 [facility] Comment on above: Performed By: #### L 500.4100, L503.7505, L300.8000, L500.4050, L100.0100, L503.0106, L506.0200, L501.5200, L501.4021, L300.3900, L501.2300, L501.9520 #### [facility] [address] [place], [address] WBC (Bld) [#/Vol] 10.8 10*3/uL Normal 4.4-11.0 [facility] Comment on above: Performed By: #### L 500.4100, L503.7505, L300.8000, L500.4050, L100.0100, L503.0106, L506.0200, L501.5200, L501.4021, L300.3900, L501.2300, L501.9520 #### [facility] [address] [place], [address] CO2 (BldV) [Moles/Vol]Ordere d By: Kristopher Diamond on 09-10-2024 CO2 [Moles/Vol] 37 mmol/L High 23-33 [facility] Calculated very low density lipoprotein (VLDL) cholesterol measurementOrdered By: Kristopher Diamond on 09-10-2024 Calculated very low density lipoprotein (VLDL) cholesterol measurement 8 mg/dL 5-40 [facility] Chest without Contraston Chest without Contrast [facility] Imaging Services [address] [place], [place] [address] Chest without Contrast MR#: [id number] Acct: [id number] Name: TYLOR PEDERSEN Rep #: [id number] : 1940 M 83 From: Jad Hamlin MD PCP: Dr. Shayne Zaidi MD Status: ADM IN Study: Chest without Contrast Date of Exam: 09/10/24 Exam# [id number] Ordering Dr: Kristopher Valencia DO PROCEDURE: CHEST [...] disease, correlate for aspiration pneumonia. Reading Location: [place] [address] CC: Dr. Kristopher Valencia DO; Dr. Shayne Zaidi MD Stained Glass Artist: Signed Normal [facility] Comprehensive Metabolic Prof ilon 09-10-2024 Albumin [Mass/Vol] 3.7 g/dL Normal 3.4-4.8 [facility] Comment on above: Performed By: #### L 500.4100, L503.7505, L300.8000, L500.4050, L100.0100, L503.0106, L506.0200, L501.5200, L501.4021, L300.3900, L501.2300, L501.9520 #### [facility] [address] [place], [address] Albumin/Globulin [Mass ratio] 0.9 {ratio} Normal 0.9-2.4 [facility] Comment on above: Performed By: #### L 500.4100, L503.7505, L300.8000, L500.4050, L100.0100, L503.0106, L506.0200, L501.5200, L501.4021, L300.3900, L501.2300, L501.9520 #### [facility] [address] [place], [place], [id number] (927) ALK PHOS 199 U/L High 40-129 [facility] Comment on above: Performed By: #### L 500.4100, L503.7505, L300.8000, L500.4050, L100.0100, L503.0106, L506.0200, L501.5200, L501.4021, L300.3900, L501.2300, L501.9520 #### [facility] [address] [place], [place], [address] ALT [Catalytic activity/Vol] 34 U/L Normal <=46 [facility] Comment on above: Performed By: #### L 500.4100, L503.7505, L300.8000, L500.4050, L100.0100, L503.0106, L506.0200, L501.5200, L501.4021, L300.3900, L501.2300, L501.9520 #### [facility] [address] [place], [place], [address] AST [Catalytic activity/Vol] 41 U/L High <=37 [facility] Comment on above: Performed By: #### L 500.4100, L503.7505, L300.8000, L500.4050, L100.0100, L503.0106, L506.0200, L501.5200, L501.4021, L300.3900, L501.2300, L501.9520 #### [facility] [address] [place], [address] Bilirubin [Mass/Vol] 0.73 mg/dL Normal 0.00-1.30 [facility] Comment on above: Performed By: #### L 500.4100, L503.7505, L300.8000, L500.4050, L100.0100, L503.0106, L506.0200, L501.5200, L501.4021, L300.3900, L501.2300, L501.9520 #### [facility] [address] [place], [address] BUN/CRE 27.5 RATIO High 10-20 [facility] Comment on above: Performed By: #### L 500.4100, L503.7505, L300.8000, L500.4050, L100.0100, L503.0106, L506.0200, L501.5200, L501.4021, L300.3900, L501.2300, L501.9520 #### [facility] [address] [place], [address] Calcium [Mass/Vol] 8.9 mg/dL Normal 7.6-11.0 [facility] Comment on above: Performed By: #### L 500.4100, L503.7505, L300.8000, L500.4050, L100.0100, L503.0106, L506.0200, L501.5200, L501.4021, L300.3900, L501.2300, L501.9520 #### [facility] [address] [place], [address] Chloride [Moles/Vol] 98 mmol/L Normal 98-108 [facility] Comment on above: Performed By: #### L 500.4100, L503.7505, L300.8000, L500.4050, L100.0100, L503.0106, L506.0200, L501.5200, L501.4021, L300.3900, L501.2300, L501.9520 #### [facility] [address] [place], [address] CO2 [Moles/Vol] 25.7 mmol/L Normal 21.0-32.0 [facility] Comment on above: Performed By: #### L 500.4100, L503.7505, L300.8000, L500.4050, L100.0100, L503.0106, L506.0200, L501.5200, L501.4021, L300.3900, L501.2300, L501.9520 #### [facility] [address] [place], [place], [address] Creatinine [Mass/Vol] 0.75 mg/dL Normal 0.70-1.20 [facility] Comment on above: Performed By: #### L 500.4100, L503.7505, L300.8000, L500.4050, L100.0100, L503.0106, L506.0200, L501.5200, L501.4021, L300.3900, L501.2300, L501.9520 #### [facility] [address] [place], [place], [address] ECRCL 80.95 ml/min Normal 50-250 [facility] Comment on above: Performed By: #### L 500.4100, L503.7505, L300.8000, L500.4050, L100.0100, L503.0106, L506.0200, L501.5200, L501.4021, L300.3900, L501.2300, L501.9520 #### [facility] [address] [place], [address] GAP 16 High 5-15 [facility] Comment on above: Performed By: #### L 500.4100, L503.7505, L300.8000, L500.4050, L100.0100, L503.0106, L506.0200, L501.5200, L501.4021, L300.3900, L501.2300, L501.9520 #### [facility] [address] [place], [place], [phone] (477) GFR/1.73 sq M.predicted among non-blacks MDRD (S/P/Bld) [Vol rate/Area] 89 mL/min/{1.73_m2} Normal >60 [facility] Comment on above: Result Comment: mL/m in/1.73m2 CKD-EPI Creatinine Equation (2020) Performed By: #### L 500.4100, L503.7505, L300.8000, L500.4050, L100.0100, L503.0106, L506.0200, L501.5200, L501.4021, L300.3900, L501.2300, L501.9520 #### [facility] [address] [place], [place], [phone] (188) Globulin (S) [Mass/Vol] 3.9 g/dL Normal 2.2-4.2 [facility] Comment on above: Performed By: #### L 500.4100, L503.7505, L300.8000, L500.4050, L100.0100, L503.0106, L506.0200, L501.5200, L501.4021, L300.3900, L501.2300, L501.9520 #### [facility] [address] [place], [place], [phone] (098) Glucose [Mass/Vol] 174 mg/dL High 70-99 [facility] Comment on above: Performed By: #### L 500.4100, L503.7505, L300.8000, L500.4050, L100.0100, L503.0106, L506.0200, L501.5200, L501.4021, L300.3900, L501.2300, L501.9520 #### [facility] [address] [place], [place], [phone] (055) Potassium [Moles/Vol] 3.9 mmol/L Normal 3.3-5.1 [facility] Comment on above: Performed By: #### L 500.4100, L503.7505, L300.8000, L500.4050, L100.0100, L503.0106, L506.0200, L501.5200, L501.4021, L300.3900, L501.2300, L501.9520 #### [facility] [address] [place], [address] Sodium [Moles/Vol] 139 mmol/L Normal 133-145 [facility] Comment on above: Performed By: #### L 500.4100, L503.7505, L300.8000, L500.4050, L100.0100, L503.0106, L506.0200, L501.5200, L501.4021, L300.3900, L501.2300, L501.9520 #### [facility] [address] [place], [address] T PROT 7.6 g/dL Normal 5.9-8.4 [facility] Comment on above: Performed By: #### L 500.4100, L503.7505, L300.8000, L500.4050, L100.0100, L503.0106, L506.0200, L501.5200, L501.4021, L300.3900, L501.2300, L501.9520 #### [facility] [address] [place], [address] Urea nitrogen [Mass/Vol] 21 mg/dL High 4-19 [facility] Comment on above: Performed By: #### L 500.4100, L503.7505, L300.8000, L500.4050, L100.0100, L503.0106, L506.0200, L501.5200, L501.4021, L300.3900, L501.2300, L501.9520 #### [facility] [address] [place], [address] Consultation - Cardiologyon 09-10-2024 Consultation - Cardiology [facility] Medical Records Department [address] [place] [address] Consultation - Cardiology 09/10/24 0751 MR#: [id number] Acct: [id number] Name: TYLOR PEDERSEN Rep #: [id number] : 1940 83 From: Dallas Muller MD PCP: Dr. Shayne Zaidi MD Status:ADM IN Location: [place] [address] Assessment Plan Assessment/Plan (1) Paroxysmal atrial fibrillation [...] was an occluded right coronary artery with [id number]-[id number] collaterals. * In light of his negative [...] of Consult: 09/10/24 HPI Narrative HPI Narrative: TYLOR PEDERSEN, is a 83 M who we [...] per se. He was apparently sent to [place] emergency room and a chest x-ray that [...] is pleasantly confused but no other problems. [facility] Medical History Atherosclerosis of coronary artery of [place] heart without angina pectoris Prostate CA Stroke [...] mg sublingual (more content not included)... Normal [facility] D-Dimer Quantitative (DVT/PE )on 09-10-2024 D-DIMER QUANT 0.39 FEU/ug/m Normal 0.27-0.49 [facility] Comment on above: Result Comment: NORM AL D-Dimer level (<0.50) indicates no DVT or PE. Performed By: #### L 500.4100, L503.7505, L300.8000, L500.4050, L100.0100, L503.0106, L506.0200, L501.5200, L501.4021, L300.3900, L501.2300, L501.9520 #### [facility] [address] [place], [address] Echo Complete W/ Contraston 09-10-2024 Echo Complete W/ Contrast [facility] Cardiovascular Services [address] [place] [address] Echo Complete W/ Contrast 09/10/24 1001 MR#: [id number] Acct: [id number] Name: TYLOR PEDERSEN Rep #: [id number] : 1940 83 From: Dallas Muller MD Attending Dr: Dr. Aayush Sibley DO Status: A DM IN Ordering Dr: Kristopher Valencia DO Date: 09/10/24 Location: U Sex: M C Admitted: 09/10/24 Reason For [...] SHAYNE ZAIDI Performed By: Manju Sahu RCS 09/10/241718 Date Dallas Muller MD CC: Dr. Kristopher Valencia DO; Dr. Shayne Zaidi MD; Dr. Aayush Sibley DO Date Dictated: 09/10/24 1001 Date Transcribed: 09/10/241718 Stained Glass Artist: Signed Normal [facility] Echocardiogram study reportO rdered By: Dallas Muller on 09-10-2024 Study report [facility] Services [address] [place] [address] Echo Complete W/ Contrast 09/10/24 1001 MR#: [id number] Acct: [id number] Name: TYLOR PEDERSEN Rep #:[id number] : 1940 83 From: Dallas Moody Attending Dr: Dr. Aayush Sibley DO Status: ADM IN Ordering Dr: Kristopher Valencia DO Date: 09/10/24 Location: [facility] Sex: M C Admitted: 09/10/24 Reason [...] SHAYNE ZAIDI Performed By: Manju Sahu RCS 09/10/241718 Date _ Dallas Muller MD CC: Dr. Kristopher Valencia DO; Dr. Shayne Zaidi MD; Dr. Aayush Sibley DO ~ Date Dictated: 09/10/24 1001 Date Transcribed: 09/10/241718 Stained Glass Artist: Signed [facility] Work Phone: Electrocardiogram reportOrde red By: Dallas Muller on 09-10-2024 EKG study [facility] Cardiovascular Services [address] [place] [address] 12 Lead EKG 09/10/24 0122 MR#: [id number] Acct: [id number] Name: TYLOR PEDERSEN Rep #:[id number] : 1940 83 From: Dallas Muller MD Attending Dr: Dr. Aayush Sibley DO Status: ADM IN Ordering Dr: Kristopher Valencia DO Date: 09/10/24 Location: [facility] Sex: M C Admitted: 09/10/24 Test [...] was found Confirmed by RENZO GRAHAM, DALLAS ([id number]), newspaper copy editor JESUS HERNANDEZ ([id number]) on 09/10/2024 8:29:31 AM Referred By: DR Valencia Confirmed By: DALLAS MULLER MD 09/10/24828 Date _ Dallas Muller MD CC: Dr. Kristopher Valencia DO; Dr. Shayne Zaidi MD; Dr. Aayush Sibley DO ~ Signed [facility] Work Phone: Eosinophil percentageOrdered By: Kristopher Diamond on 09-10-2024 Eosinophils/100 WBC (Bld) 0.0 % 0-5 [facility] Erythrocyte distribution wid th ratioOrdered By: Kristopher Diamond on 09-10-2024 Erythrocyte distribution width (RBC) [Ratio] 13.2 % 11.6-14.6 [facility] Erythrocyte distribution wid th standard deviationOrdered By: Kristopher Diamond on 09-10-2024 Erythrocyte distribution width (RBC) [Ratio] 47.6 fl High 35.1-43.9 [facility] Folate [Mass/volume] in Seru m or PlasmaOrdered By: Kristopher Diamond on 09-10-2024 Folate [Mass/Vol] 7.94 ng/mL 4.60-34.80 [facility] Comment on above: Hemolysis, Results w ill be affected, Requires Recollection. Folates,Serum (Folic Acid)on 09-10-2024 FOLATES,SERUM 7.94 ng/mL Normal 4.60-34.80 [facility] Comment on above: Order Comment: N Result Comment: Hemo lysis, Results will be affected, Requires Recollection. Performed By: #### L 500.4100, L503.7505, L300.8000, L500.4050, L100.0100, L503.0106, L506.0200, L501.5200, L501.4021, L300.3900, L501.2300, L501.9520 #### [facility] [address] [place], [address] H AND P Exam - Hospitaliston 09-10-2024 H&P Exam - Hospitalist [facility] Medical Records Department [address] [place] [address] H P Exam - Hospitalist 09/10/24 0118 MR#: [id number] Acct: [id number] Name: TYLOR PEDERSEN Rep #: [id number] : 1940 83 From: Kristopher Valencia DO PCP: Dr. Shayne Zaidi MD Status:ADM IN [id number] - General General Date of Admission: 09/10/24 Date of Service: 09/10/24 Chief Complaint: Shortness of Breath, Cough, Chest Pain, Anxiety and Generalized Weakness. HPI Narrative TYLOR PEDERSEN, is a 83 M with a past medical history of essential hypertension; on amlodipine, atenolol and spironolactone, hyperlipidemia; on atorvastatin, hypothyroidism; on levothyroxine, overweight; with BMI of 29.3 this admission, central sleep apnea; on CPAP, CAD; s/p non-ST elevation [place] with subsequent CABG x 2 (1992) and [...] hours as needed who was transferred from [facility] with complaints of shortness of breath, chest [...] dysuria, hematuria, headache, confusion or rash. At [facility] ER he was noted to have a [...] is expected to extend beyond 2 midnights. [facility] Medical History Atherosclerosis of coronary artery of [place] heart without angina pectoris Prostate CA Stroke [...] mg tablet 25 mg PO DAILY diuretic 07/28/1907/22 History aspirin 81 mg chewable tablet 81 [...] 0.3 mg (more content not included)... Normal [facility] Hematocrit Auto (Bld) [Volum e fraction]Ordered By: Kristopher Diamond on 09-10-2024 Hematocrit (Bld) [Volume fraction] 44.1 % 40-54 [facility] Hemoglobin A1con 09-10-2024 HbA1c (Bld) [Mass fraction] 5.5 % Normal <=5.6 [facility] Comment on above: Result Comment: Norm al < 5.7 % Prediabetic 5.7 - 6.4 % Diabetic >or= 6.5 % Please note range changes. Performed By: #### L 501.9907 #### [facility] [address] [place], [place] [address], [address] Hemoglobin A1c percentageOrd ered By: Kristopher Diamond on 09-10-2024 HbA1c (Bld) [Mass fraction] 5.5 % <5.7 [facility] Comment on above: Normal < 5.7 % Predi abetic 5.7 - 6.4 % Diabetic >or= 6.5 % Please note range changes. Hemoglobin measurementOrdere d By: Kristopher Diamond on 09-10-2024 Hemoglobin (Bld) [Mass/Vol] 14.3 g/dL 13.0-16.5 [facility] Immature granulocytes/100 WB C Auto (Bld)Ordered By: Kristopher Diamond on 09-10-2024 Immature granulocytes/100 WBC (Bld) 0.300 % 0.0-0.9 [facility] Comment on above: IG% - Immature Granu locytes (promyelocytes, myelocytes and metamyelocytes) > 1% indicates that a LEFT SHIFT is Present. Ketones Test strip Ql (U)Ord ered By: Kristopher Diamond on 09-10-2024 Ketones Ql (U) Negative Negative [facility] L501.4021on 09-10-2024 Trop T High Sen 8 ng/L Normal <=22 [facility] Comment on above: Performed By: #### L 500.4100, L503.7505, L300.8000, L500.4050, L100.0100, L503.0106, L506.0200, L501.5200, L501.4021, L300.3900, L501.2300, L501.9520 ####[facility] [address] [place], [place], [id number] LDL calc ser/plasOrdered By: Kristopher Diamond on 09-10-2024 Cholesterol in LDL [Mass/Vol] 40 mg/dL [facility] Comment on above: Ejjsxxjbvf=245-340 m g/dL & Higher Qbiy=100 mg/dL or greaterFriedwald Equation for LDL-C Laboratory - Chemistry and C hemistry - challengeOrdered By: Kristopher Diamond on 09-10-2024 AST [Catalytic activity/Vol] 41 U/L High <38 [facility] Legionella Antigen Urineon 0 09-10-2024 LEGU URINE, RANDOM Legionella Antigen result interpretation: L pneumo Ag Ur Ql Negative Presumptive negative for Legionella pneumophila serogroup 1 antigen in urine, suggesting no recent or current infection. Legionella Ag, Urine Negative (See interpretation below) Normal [facility] Comment on above: Performed By: #### L 501.9985 #### [facility] [address] [place], [address] Lipid Profileon 09-10-2024 CHOL:HDL 2.30 Normal [facility] Comment on above: Performed By: #### L 500.4100, L503.7505, L300.8000, L500.4050, L100.0100, L503.0106, L506.0200, L501.5200, L501.4021, L300.3900, L501.2300, L501.9520 ####[facility] [address] [place], [place], [phone]) Cholesterol [Mass/Vol] 85 mg/dL Normal <=[address] [facility] Comment on above: Result Comment: Chol esterol level, Desirable <200 mg/dL Borderline high cholesterol 200-239 mg/dL High cholesterol >=240 mg/dL Recommendations of the NCEP Adult Treatment Panel for the following risk-cutoff thresholds for the [place] population. Performed By: #### L 500.4100, L503.7505, L300.8000, L500.4050, L100.0100, L503.0106, L506.0200, L501.5200, L501.4021, L300.3900, L501.2300, L501.9520 ####[facility] [address] [place], [phone]) Cholesterol in HDL [Mass/Vol] 37 mg/dL Low [facility] Comment on above: Result Comment: Jordana onal Cholesterol Education Program (NCEP) guidelines: <40 mg/dL: Low HDL-cholesterol (major risk factor for CHD) >= 60 mg/dL: High HDL-cholesterol (negative risk factor for CHD) HDL-cholesterol is affected by a number of factors, e.g. smoking, exercise, hormones, sex and age. Performed By: #### L 500.4100, L503.7505, L300.8000, L500.4050, L100.0100, L503.0106, L506.0200, L501.5200, L501.4021, L300.3900, L501.2300, L501.9520 ####[facility] [address] [place], [address](067) Cholesterol in LDL [Mass/Vol] 40 mg/dL Normal [facility] Comment on above: Result Comment: Bord qsamyq=155-077 mg/dL Higher Oezh=123 mg/dL or greater Friedwald Equation for LDL-C Performed By: #### L 500.4100, L503.7505, L300.8000, L500.4050, L100.0100, L503.0106, L506.0200, L501.5200, L501.4021, L300.3900, L501.2300, L501.9520 ####[facility] [address] [place], [place], [phone]) Cholesterol in VLDL [Mass/Vol] 8 mg/dL Normal 5-40 [facility] Comment on above: Performed By: #### L 500.4100, L503.7505, L300.8000, L500.4050, L100.0100, L503.0106, L506.0200, L501.5200, L501.4021, L300.3900, L501.2300, L501.9520 ####[facility] [address] [place], [place], [id number] Triglyceride [Mass/Vol] 42 mg/dL Normal [facility] Comment on above: Result Comment: The drugs N-Acetylcysteine and Metamizole may falsely depress this assay. Normal range: <150 mg/dL Borderline High: 150-199 mg/dL High: 200-499 mg/dL Very High: >500 mg/dL Performed By: #### L 500.4100, L503.7505, L300.8000, L500.4050, L100.0100, L503.0106, L506.0200, L501.5200, L501.4021, L300.3900, L501.2300, L501.9520 ####[facility] [address] [place], [place], [phone] MCV (mean corpuscular volume ) determinationOrdered By: Kristopher Diamond on 09-10-2024 MCV (RBC) [Entitic vol] 95.7 fL High 80-94 [facility] Magnesiumon 09-10-2024 Magnesium [Mass/Vol] 2.1 mg/dL Normal 1.5-2.2 [facility] Comment on above: Performed By: #### L 500.4100, L503.7505, L300.8000, L500.4050, L100.0100, L503.0106, L506.0200, L501.5200, L501.4021, L300.3900, L501.2300, L501.9520 ####[facility] [address] [place], [place], [phone] Magnesium measurement (mass/ volume)Ordered By: Kristopher Diamond on 09-10-2024 Magnesium (Unsp spec) [Mass/Vol] 2.1 mg/dL 1.5-2.2 [facility] Mean corpuscular hemoglobin (MCH) determinationOrdered By: Kristopher Diamond on 09-10-2024 MCH (RBC) [Entitic mass] 31.0 pg 27.0-32.0 [facility] Mean corpuscular hemoglobin concentration (MCHC) determinationOrdered By: Kristopher Diamond on 09-10-2024 MCHC (RBC) [Mass/Vol] 32.4 g/dL 32-36 [facility] Mean platelet volume determi nationOrdered By: Kristopher Diamond on 09-10-2024 Platelet mean volume (Bld) [Entitic vol] 9.2 fL 6.2-12.0 [facility] Microscopic analysis of urin e for red blood cells (RBC)Ordered By: Kristopher Diamond on 09-10-2024 Microscopic analysis of urine for red blood cells (RBC) 0-5 SEEN /hpf 0-5 [facility] Monocyte percentageOrdered B y: Kristopher Diamond on 09-10-2024 Monocytes/100 WBC (Bld) 2.8 % 0-10 [facility] Mucus LM Ql (Urine sed)Order ed By: Kristopher Diamond on 09-10-2024 Mucus Ql (Urine sed) 0 SEEN /hpf [facility] Natriuretic peptide.B prohor dianne N-Terminal [Mass/volume] in Serum or PlasmaOrdered By: Kristopher Diamond on 09-10-2024 Natriuretic peptide.B prohormone N-Terminal [Mass/Vol] 3825 pg/mL High <1800 [facility] Comment on above: Heart Failure Unlike ly: < 300 pg/mLHeart Failure Likely< 50 Years: > 450 pg/mL50-75 Years: > 900 pg/mL>75 Years: > 1800 pg/mL Neutrophil percentageOrdered By: Kristopher Diamond on 09-10-2024 Neutrophils/100 WBC (Bld) 94.5 % High 47-70 [facility] Nitrite Test strip Ql (U)Ord ered By: Kristopher Diamond on 09-10-2024 Nitrite Ql (U) Negative Negative [facility] No Panel InformationOrdered By: Kristopher Diamond on 09-10-2024 Blood Gas Sample Site Not entered [facility] Blood Gas Specimen Type ARIEL [facility] Oxygen Delivery Device Cannula [facility] Nucleated red blood cell per centageOrdered By: Kristopher Diamond on 09-10-2024 Nucleated RBC/100 WBC (Bld) [Ratio] 0 % 0-5 [facility] Phosphoruson 09-10-2024 Phosphate [Mass/Vol] 2.7 mg/dL Normal 2.7-4.5 [facility] Comment on above: Performed By: #### L 500.4100, L503.7505, L300.8000, L500.4050, L100.0100, L503.0106, L506.0200, L501.5200, L501.4021, L300.3900, L501.2300, L501.9520 ####[facility] [address] [place], [address] Platelet countOrdered By: Matthieu Diamond on 09-10-2024 Platelets (Bld) [#/Vol] 224 10*3/uL 150-450 [facility] Pro- Brain NATRIURETIC PEPTI Angel 09-10-2024 Natriuretic peptide B (Bld) [Mass/Vol] 3825 pg/mL High <=1800 [facility] Comment on above: Result Comment: Hear t Failure Unlikely: < 300 pg/mL Heart Failure Likely < 50 Years: > 450 pg/mL 50-75 Years: > 900 pg/mL >75 Years: > 1800 pg/mL Performed By: #### L 500.4100, L503.7505, L300.8000, L500.4050, L100.0100, L503.0106, L506.0200, L501.5200, L501.4021, L300.3900, L501.2300, L501.9520 ####[facility] [address] [place], [place], [phone] Protein Test strip Ql (U)Ord ered By: Kristopher Diamond on 09-10-2024 Protein Ql (U) Negative Negative [facility] Prothrombin Time w/INRon INR Coag (PPP) [Relative time] 1.5 {INR} Normal [facility] Comment on above: Performed By: #### L 500.4100, L503.7505, L300.8000, L500.4050, L100.0100, L503.0106, L506.0200, L501.5200, L501.4021, L300.3900, L501.2300, L501.9520 #### [facility] [address] [place], [place], [phone] PT Coag (PPP) [Time] 18.7 s High 11.7-14.9 [facility] Comment on above: Performed By: #### L 500.4100, L503.7505, L300.8000, L500.4050, L100.0100, L503.0106, L506.0200, L501.5200, L501.4021, L300.3900, L501.2300, L501.9520 #### [facility] [address] [place], [place], [phone] RBC Auto (Bld) [#/Vol]Ordere d By: Kristopher Diamond on 09-10-2024 RBC (Bld) [#/Vol] 4.61 10*6/uL 4.6-6.2 [facility] RESPIRATORY PANEL MOLECULARo n 09-10-2024 RP PANEL [...] Not Detected RSV B Not Detected Normal [facility] Comment on above: Performed By: #### M [id number] ####[facility] [address] [place], [place], [phone] Respiratory pathogens detect ion panel by molecular detection methodOrdered By: Kristopher Diamond on 09-10-2024 Respiratory pathogens DNA and RNA panel NIURKA+probe (Resp) [facility] Screening total cholesterol/ high density lipoprotein (HDL) cholesterol ratioOrdered By: Kristopher Diamond on 09-10-2024 Cholesterol.total/Choles terol in HDL [Mass ratio] 2.30 {ratio} [facility] Serum globulin measurementOr dered By: Kristopher Diamond on 09-10-2024 Globulin (S) [Mass/Vol] 3.9 g/dL 2.2-4.2 [facility] Serum or plasma alanine castillo otransferase (ALT) measurementOrdered By: Kristopher Diamond on 09-10-2024 ALT [Catalytic activity/Vol] 34 U/L <47 [facility] Serum or plasma albumin regan urement (mass/volume)Ordered By: Kristopher Diamond on 09-10-2024 Albumin [Mass/Vol] 3.7 g/dL 3.4-4.8 [facility] Serum or plasma albumin/glob ulin mass ratioOrdered By: Kristopher Diamond on 09-10-2024 Albumin/Globulin [Mass ratio] 0.9 {ratio} 0.9-2.4 [facility] Serum or plasma alkaline effie sphatase measurementOrdered By: Kristopher Diamond on 09-10-2024 ALP [Catalytic activity/Vol] 199 U/L High 40-129 [facility] Serum or plasma cholesterol in HDL measurement (mass/volume)Ordered By: Kristopher Diamond on 09-10-2024 Cholesterol in HDL [Mass/Vol] 37 mg/dL Low >40 [facility] Comment on above: National Cholesterol Education Program (NCEP) guidelines:<40 mg/dL: Low HDL-cholesterol (major risk factor for CHD)>= 60 mg/dL: High HDL-cholesterol (negative risk factor for CHD)HDL-cholesterol is affected by a number of factors, e.g. smoking, exercise, hormones, sex and age. Serum or plasma cholesterol measurement (mass/volume)Ordered By: Kristopher Diamond on 09-10-2024 Cholesterol [Mass/Vol] 85 mg/dL <[address] [facility] Comment on above: Cholesterol level, D esirable <200 mg/dLBorderline high cholesterol 200-239 mg/dLHigh cholesterol >=240 mg/dLRecommendations of the NCEP Adult Treatment Panel for the following risk-cutoff thresholds for the [place] population. Squamous epithelial cells de tection in urine sediment by light microscopyOrdered By: Kristopher Diamond on 09-10-2024 Epithelial cells.squamous LM Ql (Urine sed) 0-5 SEEN /hpf 0-5 [facility] Strep pneumoniae Antig(UR,CS F)on 09-10-2024 STPAG Strep pneumoniae Antig(UR,CSF) Strep pneumoniae Antig(UR,CSF) [] Negative Urine Presumptive negative for pneumococcal pneumonia, suggesting no current or recent pneumococcal infection. Infection due to S pneumoniae cannot be ruled out since the antigen present in the sample may be below the detection limit of the test. Strep pneumo Test Negative URINE (See interpretation below) Normal [facility] Comment on above: Performed By: #### L 501.9985 #### [facility] [address] [place], [address] TSH DL <= 0.005 mIU/L QnOrde red By: Kristopher Diamond on 09-10-2024 TSH Qn 0.518 uIU/mL 0.300-4.200 [facility] Thyroid Stim Hormone (TSH)on 09-10-2024 TSH 0.518 uIU/mL Normal 0.300-4.200 [facility] Comment on above: Performed By: #### L 500.4100, L503.7505, L300.8000, L500.4050, L100.0100, L503.0106, L506.0200, L501.5200, L501.4021, L300.3900, L501.2300, L501.9520 ####[facility] [address] [place], [address] Total proteinOrdered By: Peter Diamond on 09-10-2024 Protein [Mass/Vol] 7.6 g/dL 5.9-8.4 [facility] Triglycerides measurementOrd ered By: Kristopher Diamond on 09-10-2024 Triglyceride [Mass/Vol] 42 mg/dL <199 [facility] Comment on above: The drugs N-Acetylcy steine and Metamizole may falsely depress this assay. Normal range: <150 mg/dLBorderline High: 150-199 mg/dLHigh: 200-499 mg/dLVery High: >500 mg/dL Troponin T HS 2 HRon 025 Trop T High Sen 7 ng/L Normal <=22 [facility] Comment on above: Performed By: #### L 500.4100, L503.7505, L300.8000, L500.4050, L100.0100, L503.0106, L506.0200, L501.5200, L501.4021, L300.3900, L501.2300, L501.9520 #### [facility] [address] [place], [place], [phone] Troponin T HS 4 HRon 025 Trop T High Sen 6 ng/L Normal <=22 [facility] Comment on above: Performed By: #### L 500.4100, L503.7505, L300.8000, L500.4050, L100.0100, L503.0106, L506.0200, L501.5200, L501.4021, L300.3900, L501.2300, L501.9520 #### [facility] [address] [place], [address] Troponin T.cardiac [Mass/vol ume] in Serum or Plasma by High sensitivity methodOrdered By: Kristopher Diamond on 09-10-2024 Troponin T.cardiac High sensitivity method [Mass/Vol] 6 ng/L <22 [facility] Troponin T.cardiac High sensitivity method [Mass/Vol] 7 ng/L <22 [facility] Troponin T.cardiac High sensitivity method [Mass/Vol] 8 ng/L <22 [facility] Urinalysis, Completeon 09-10 BACTERIA 1+ /hpf Normal None Seen [facility] Comment on above: Order Comment: Urine , Random Performed By: #### L 501.9985 #### [facility] [address] [place], [address] EPI,SQUAMOUS 0-5 SEEN Normal 0-5 [facility] Comment on above: Order Comment: Urine , Random Performed By: #### L 501.9985 #### [facility] [address] [place], [address] RBC 0-5 SEEN Normal 0-5 [facility] Comment on above: Order Comment: Urine , Random Performed By: #### L 501.9985 #### [facility] [address] [place], [address] BILIRUBIN URINE Negative Normal Negative [facility] Comment on above: Order Comment: Urine , Random Performed By: #### L 501.9985 #### [facility] [address] [place], [address] Clarity (U) Clear Normal Clear [facility] Comment on above: Order Comment: Urine , Random Performed By: #### L 501.9985 #### [facility] [address] [place], [address] Color (U) Yellow Normal Yellow [facility] Comment on above: Order Comment: Urine , Random Performed By: #### L 501.9985 #### [facility] [address] [place], [address] GLUCOSE, UR Normal Normal Normal [facility] Comment on above: Order Comment: Urine , Random Performed By: #### L 501.9985 #### [facility] [address] [place], [address] KETONE UR Negative Normal Negative [facility] Comment on above: Order Comment: Urine , Random Performed By: #### L 501.9985 #### [facility] [address] [place], [address] LEUK ESTERASE Negative Normal Negative [facility] Comment on above: Order Comment: Urine , Random Performed By: #### L 501.9985 #### [facility] [address] [place], [address] Nitrite Ql (U) Negative Normal Negative [facility] Comment on above: Order Comment: Urine , Random Performed By: #### L 501.9985 #### [facility] [address] [place], [address] OCCULT BLOOD-UR 10 /ul Abnormal Negative [facility] Comment on above: Order Comment: Urine , Random Performed By: #### L 501.9985 #### [facility] [address] [place], [address] pH UR 6.0 Normal 5.0 - 8.0 [facility] Comment on above: Order Comment: Urine , Random Performed By: #### L 501.9985 #### [facility] [address] [place], [address] PROT DIPSTX Negative Normal Negative [facility] Comment on above: Order Comment: Urine , Random Performed By: #### L 501.9985 #### [facility] [address] [place], [address] SP.GR. DIPSTX 1.010 Normal 1.002-1.030 [facility] Comment on above: Order Comment: Urine , Random Performed By: #### L 501.9985 #### [facility] [address] [place], [address] UROBILI Normal Normal Normal [facility] Comment on above: Order Comment: Urine , Random Performed By: #### L 501.9985 #### [facility] [address] [place], [address] Mucus Ql (Urine sed) 0 SEEN Normal [facility] Comment on above: Order Comment: Urine , Random Performed By: #### L 501.9985 #### [facility] [address] [place], [address] WBC 0 SEEN Normal 0-5 [facility] Comment on above: Order Comment: Urine , Random Performed By: #### L 501.9985 #### [facility] [address] [place], [address] Urine Legionella pneumophila antigen detectionOrdered By: Kristopher Diamond on 09-10-2024 L. pneumophila Ag Ql (U) [facility] Urine clarityOrdered By: Peter Diamond on 09-10-2024 Clarity (U) Clear Clear [facility] Urine color determinationOrd ered By: Kristopher Diamond on 09-10-2024 Color (U) Yellow Yellow [facility] Urine glucose detectionOrder ed By: Kristopher Diamond on 09-10-2024 Glucose Ql (U) Normal mg/dl Normal [facility] Urine leukocyte esterase det ection by dipstickOrdered By: Kristopher Diamond on 09-10-2024 Leukocyte esterase Test strip Ql (U) Negative Negative [facility] Urine pHOrdered By: Kristopher kaufman on 09-10-2024 pH (U) 6.0 [pH] 5.0 - 8.0 [facility] Urine sediment bacteria coun t by microscopy (number/high power field)Ordered By: Kristopher Diamond on 09-10-2024 Bacteria LM.HPF (Urine sed) [#/Area] 1 /[HPF] None Seen [facility] Urine specific gravity measu rementOrdered By: Kristopher Diamond on 09-10-2024 Specific gravity (U) [Rel density] 1.010 1.002-1.030 [facility] Urine urobilinogen measureme ntOrdered By: Kristopher Diamond on 09-10-2024 Urobilinogen Ql (U) Normal mg/dl Normal [facility] Venous Blood Gason Blood Gas Type ARIEL Normal [facility] Comment on above: Performed By: #### L 900.0810 #### [facility] [address] [place], [address] CO2 [Moles/Vol] 37 mmol/L High 23-33 [facility] Comment on above: Performed By: #### L 8999.0810 #### [facility] [address] [place], [address] FI02 3.0 Normal [facility] Comment on above: Performed By: #### L 9000.0810 #### [facility] [address] [place], [address] HCO3 (Bld) [Moles/Vol] 35 mmol/L High 22-[address] [facility] Comment on above: Performed By: #### L 900.0810 #### [facility] [address] [place], [address] O2 Delivery Dev Cannula Normal [facility] Comment on above: Performed By: #### L 9000.0810 #### [facility] [address] [place], [address] SITE Not entered [facility] Comment on above: Performed By: #### L 900.0810 #### [facility] [address] [place], [address] VBG BE 10 mmol/L High -1.0-3.5 [facility] Comment on above: Performed By: #### L 9000.0810 #### [facility] [address] [place], [address] VBG pCO2 54.8 mmHg High 41-51 [facility] Comment on above: Performed By: #### L 9000.0810 #### [facility] [address] [place], [place], [address] VBG pH 7.41 Normal 7.32-7.42 [facility] Comment on above: Performed By: #### L 9000.0810 #### [facility] [address] [place], [address] VBG PO2 68 mmHg High 25-40 [facility] Comment on above: Performed By: #### L 9000.0810 #### [facility] [address] [place], [address] VBG SO2 93 High 50-70 [facility] Comment on above: Performed By: #### L 9000.0810 #### [facility] [address] [place], [place], [address] Venous blood base excess rodolfo surementOrdered By: Kristopher Diamond on 09-10-2024 Base excess Calc (BldV) [Moles/Vol] 10 mmol/L High -1.0-3.5 [facility] Venous blood bicarbonate rodolfo surementOrdered By: Kristopher Diamond on 09-10-2024 HCO3 (Bld) [Moles/Vol] 35 mmol/L High 22-[address] [facility] Venous blood oxygen saturati on measurementOrdered By: Kristopher Diamond on 09-10-2024 Oxygen saturation in Blood 93 % High 50-70 [facility] Venous blood pH measurementO rdered By: Kristopher Diamond on 09-10-2024 pH (BldV) 7.41 [pH] 7.32-7.42 [facility] Venous blood partial pressur e of carbon dioxide measurementOrdered By: Kristopher Diamond on 09-10-2024 CO2 (BldV) [Partial pressure] 54.8 mm[Hg] High 41-51 [facility] Venous blood partial pressur e of oxygen measurementOrdered By: Kristopher Diamond on 09-10-2024 Oxygen (BldV) [Partial pressure] 68 mm[Hg] High 25-40 [facility] Vitamin B12on 09-10-2024 Cobalamin (Vitamin B12) [Mass/Vol] 515 pg/mL Normal 180-914 [facility] Comment on above: Performed By: #### L 500.4100, L503.7505, L300.8000, L500.4050, L100.0100, L503.0106, L506.0200, L501.5200, L501.4021, L300.3900, L501.2300, L501.9520 ####[facility] [address] [place], [address] Vitamin B12 ser/plasOrdered By: Kristopher Diamond on 09-10-2024 Cobalamin (Vitamin B12) [Mass/Vol] 515 pg/mL 180-914 [facility] White blood cell (WBC) count Ordered By: Kristopher Diamond on 09-10-2024 WBC (Bld) [#/Vol] 10.8 10*3/uL 4.4-11.0 [facility] White blood cell countOrdere d By: Kristopher Diamond on 09-10-2024 White blood cell count 0 SEEN /hpf 0-5 [facility] ALLIED HEALTHon 09-09-2024 ALLIED HEALTH HNO ID: [id number] Author: AGNES BRIZUELA RT(R) Service: ? Author Type: Technologist Type: Allied Health Filed: 09/09/2024 19:49 Note Text: Radiology Service Progress Note PATIENT NAME: Tylor Pedersen DATE OF SERVICE: September 09, 2024 [...] PATIENT PRESENTS WITH AN IMPLANTABLE OR ATTACHED SHOT MAN: No RADIOLOGY DEPARTMENT: General X-ray: Exam(s) Completed: Chest X-Ray PERIPHERAL IV DATA: Not applicable SIGNED BY: Agnes Brizuela RT(R) September 09, 2024 7:49 PM Normal [facility] CBC W Auto Differential pane l (Bld)on 09-09-2024 Basophils (Bld) [#/Vol] 0.03 10*3/uL Normal <0.11 [facility] Comment on above: Order Comment: Speci men Type: BLOOD SPECIMENOrdering Facility: [facility] Address: [address] [place] [address] Performed By: #### 5 7021-8 ####[facility] LABCLIA [id number] [place] [id number] [place] Basophils/100 WBC (Bld) 0.3 % Normal [facility] Comment on above: Order Comment: Speci men Type: BLOOD SPECIMENOrdering Facility: [facility] Address: [address] [place] [address] Performed By: #### 5 7021-8 ####[facility] LABCLIA [id number] [place] [address] [facility] [place] Differential cell count method Nom (Bld) Auto Normal [facility] Comment on above: Order Comment: Speci men Type: BLOOD SPECIMENOrdering Facility: [facility] Address: [address] [place] [address] Performed By: #### 5 7021-8 ####[facility] LABCLIA [id number] [place] [address] [place] Eosinophils (Bld) [#/Vol] 0.08 10*3/uL Normal <0.46 [facility] Comment on above: Order Comment: Speci men Type: BLOOD SPECIMENOrdering Facility: [facility] Address: [address] [place] [address] Performed By: #### 5 7021-8 ####[facility] LABCLIA [id number] [place] [address] [place] Eosinophils/100 WBC (Bld) 0.8 % Normal [facility] Comment on above: Order Comment: Speci men Type: BLOOD SPECIMENOrdering Facility: [facility] Address: [address] [place] [address] Performed By: #### 5 7021-8 ####[facility] LABCLIA [id number] [place] [address] [place] Erythrocyte distribution width (RBC) [Ratio] 13.2 % Normal 11.5-15.0 [facility] Comment on above: Order Comment: Speci men Type: BLOOD SPECIMENOrdering Facility: [facility] Address: [address] [place] [address] Performed By: #### 5 7021-8 ####[facility] [id number] [place] [address] [place] Hematocrit (Bld) [Volume fraction] 43.0 % Normal 39.0-51.0 [facility] Comment on above: Order Comment: Speci men Type: BLOOD SPECIMENOrdering Facility: [facility] [place] Address: [address] [place] [address] Performed By: #### 5 7021-8 ####[facility] LAB[facility] [id number] [place] [address] [facility] [place] Hemoglobin (Bld) [Mass/Vol] 13.4 g/dL Normal 13.0-17.0 [facility] Comment on above: Order Comment: Speci men Type: BLOOD SPECIMENOrdering Facility: [facility] [place] Address: [address] [place] [address] Performed By: #### 5 7021-8 ####[facility] LABCLIA [id number] [place] [address] [facility] [place] Immature granulocytes (Bld) [#/Vol] 0.03 10*3/uL Normal <0.10 [facility] Comment on above: Order Comment: Speci men Type: BLOOD SPECIMENOrdering Facility: [facility] [place] Address: [address] [place] [address] Performed By: #### 5 7021-8 ####[facility] LABCLIA [id number] [place] [address] [facility] Immature granulocytes/100 WBC (Bld) 0.3 % Normal [facility] Comment on above: Order Comment: Speci men Type: BLOOD SPECIMENOrdering Facility: [facility] [place] Address: [address] [place] [address] Performed By: #### 5 7021-8 ####[facility] LABCLIA [id number] [place] [address] [facility] Lymphocytes (Bld) [#/Vol] 0.65 10*3/uL Low 1.00-4.00 [facility] Comment on above: Order Comment: Speci men Type: BLOOD SPECIMENOrdering Facility: [facility] [place] Address: [address] [place] [address] Performed By: #### 5 7021-8 ####[facility] LAB[facility] [id number] [address] Lymphocytes/100 WBC (Bld) 6.3 % Normal [facility] Comment on above: Order Comment: Speci men Type: BLOOD SPECIMENOrdering Facility: [facility] [place] Address: [address] [place] [address] Performed By: #### 5 7021-8 ####[facility] LAB[facility] [id number] [place] [address] [place] MCH (RBC) [Entitic mass] 30.7 pg Normal 26.0-34.0 [facility] Comment on above: Order Comment: Speci men Type: BLOOD SPECIMENOrdering Facility: [facility] [place] Address: [address] [place] [address] Performed By: #### 5 7021-8 ####[facility] LAB[facility] [id number] [place] [address] [place] MCHC (RBC) [Mass/Vol] 31.2 g/dL Normal 30.5-36.0 [facility] Comment on above: Order Comment: Speci men Type: BLOOD SPECIMENOrdering Facility: [facility] [place] Address: [address] [place] [address] Performed By: #### 5 7021-8 ####[facility] LABCLIA [id number] [place] [address] [place] MCV (RBC) [Entitic vol] 98.4 fL Normal 80.0-100.0 [facility] Comment on above: Order Comment: Speci men Type: BLOOD SPECIMENOrdering Facility: [facility] [place] Address: [address] [place] [address] Performed By: #### 5 7021-8 ####[facility] LABCLIA [id number] [place] [address] [place] Monocytes (Bld) [#/Vol] 0.94 10*3/uL High <0.87 [facility] Comment on above: Order Comment: Speci men Type: BLOOD SPECIMENOrdering Facility: [facility] [place] Address: [address] [place] [address] Performed By: #### 5 7021-8 ####[facility] LABCLIA [id number] [place] [address] [facility] Monocytes/100 WBC (Bld) 9.1 % Normal [facility] Comment on above: Order Comment: Speci men Type: BLOOD SPECIMENOrdering Facility: [facility] [place] Address: [address] [place] [address] Performed By: #### 5 7021-8 ####[facility] LABCLIA [id number] [facility] [address] [place] Neutrophils (Bld) [#/Vol] 8.55 10*3/uL High 1.45-7.50 [facility] Comment on above: Order Comment: Speci men Type: BLOOD SPECIMENOrdering Facility: [facility] [place] Address: [address] [place] [address] Performed By: #### 5 7021-8 ####[facility] LABCLIA [id number] [facility] [address] [place] Neutrophils/100 WBC (Bld) 83.2 % Normal [facility] Comment on above: Order Comment: Speci men Type: BLOOD SPECIMENOrdering Facility: [facility] [place] Address: [address] [place] [address] Performed By: #### 5 7021-8 ####[facility] LABCLIA [id number] [facility] [address] [place] Nucleated RBC (Bld) [#/Vol] Normal [facility] Comment on above: Order Comment: Speci men Type: BLOOD SPECIMENOrdering Facility: [facility] [place] Address: [address] [place] [address] Performed By: #### 5 7021-8 ####[facility] LAB[facility] [id number] [place] [address] [place] Nucleated RBC/100 WBC (Bld) [Ratio] Normal [facility] Comment on above: Order Comment: Speci men Type: BLOOD SPECIMENOrdering Facility: [facility] [place] Address: [address] [place] [address] Performed By: #### 5 7021-8 ####[facility] LAB[facility]IA [id number] [place] [address] [place] Platelet mean volume (Bld) [Entitic vol] 9.4 fL Normal 9.0-12.7 [facility] Comment on above: Order Comment: Speci men Type: BLOOD SPECIMENOrdering Facility: [facility] [place] Address: [address] [place] [address] Performed By: #### 5 7021-8 ####[facility] LABCLIA [id number] [place] [address] [place] Platelets (Bld) [#/Vol] 219 10*3/uL Normal 150-400 [facility] Comment on above: Order Comment: Speci men Type: BLOOD SPECIMENOrdering Facility: [facility] [place] Address: [address] [place] [address] Performed By: #### 5 7021-8 ####[facility] LABCLIA [id number] [facility] [address] [facility] RBC (Bld) [#/Vol] 4.37 10*6/uL Normal 4.20-6.00 [facility] Comment on above: Order Comment: Speci men Type: BLOOD SPECIMENOrdering Facility: [facility] [place] Address: [address] [place] [address] Performed By: #### 5 7021-8 ####[facility] LABCLIA [id number] [facility] [address] [facility] WBC (Bld) [#/Vol] 10.28 10*3/uL Normal 3.70-11.00 [facility] Comment on above: Order Comment: Speci men Type: BLOOD SPECIMENOrdering Facility: [facility] [place] Address: [address] [place] [address] Performed By: #### 5 7021-8 ####[facility] LAB[facility] [id number] [facility] [address] [facility] Comprehensive metabolic 2000 panelon 09-09-2024 Albumin [Mass/Vol] 3.4 g/dL Low 3.9-4.9 [facility] Comment on above: Order Comment: Speci men Type: BLOOD SPECIMEN Ordering Facility: [facility] [place] Address: [address] [place] [address] Performed By: #### 1 9123-9, 41783-8, 78393-8 #### [facility] CLIA [id number] [address] [place] [address] [facility] ALP [Catalytic activity/Vol] 182 U/L High 38-113 [facility] Comment on above: Order Comment: Speci men Type: BLOOD SPECIMEN Ordering Facility: [facility] [place] Address: [address] [place] [address] Performed By: #### 1 9123-9, 50254-7, 28019-2 #### [facility] CLIA [id number] [address] [place] [address] [place] ALT With P-5'-P [Catalytic activity/Vol] 26 U/L Normal 10-54 [facility] Comment on above: Order Comment: Speci men Type: BLOOD SPECIMEN Ordering Facility: [facility] [place] Address: [address] [place] [address] Performed By: #### 1 9123-9, 86726-4, 86542-2 #### [facility] CLIA [id number] [address] [place] [address] [place] Anion gap [Moles/Vol] 10 mmol/L Normal 8-15 [facility] Comment on above: Order Comment: Speci men Type: BLOOD SPECIMEN Ordering Facility: [facility] [place] Address: [address] [place] [address] Performed By: #### 1 9123-9, 81468-6, 07455-0 #### [facility] CLIA [id number] [address] [place] [address] [place] AST With P-5'-P [Catalytic activity/Vol] 32 U/L Normal 14-40 [facility] Comment on above: Order Comment: Speci men Type: BLOOD SPECIMEN Ordering Facility: [facility] [place] Address: [address] [place] [address] Performed By: #### 1 9123-9, 05816-0, 71717-3 #### [facility] CLIA [id number] [address] [place] [address] [place] Bilirubin [Mass/Vol] 0.8 mg/dL Normal 0.2-1.3 [facility] Comment on above: Order Comment: Speci men Type: BLOOD SPECIMEN Ordering Facility: [facility] [place] Address: [address] [place] [address] Performed By: #### 1 9123-9, 22736-1, 97375-3 #### [facility] CLIA [id number] [address] [place] [address] [place] Calcium [Mass/Vol] 8.7 mg/dL Normal 8.5-10.2 [facility] Comment on above: Order Comment: Speci men Type: BLOOD SPECIMEN Ordering Facility: [facility] [place] Address: [address] [place] [address] Performed By: #### 1 9123-9, 05695-4, 18844-0 #### [facility] CLIA [id number] [address] [place] [address] [place] Chloride [Moles/Vol] 100 mmol/L Normal 98-107 [facility] Comment on above: Order Comment: Speci men Type: BLOOD SPECIMEN Ordering Facility: [facility] [place] Address: [address] [place] [address] Performed By: #### 1 9123-9, 55264-1, 90072-2 #### [facility] CLIA [id number] [address] [place] [address] [place] CO2 [Moles/Vol] 29 mmol/L Normal 22-30 [facility] Comment on above: Order Comment: Speci men Type: BLOOD SPECIMEN Ordering Facility: [facility] [place] Address: [address] [place] [address] Performed By: #### 1 9123-9, 82584-5, 13792-3 #### [facility] CLIA [id number] [address] [place] [address] [place] Creatinine [Mass/Vol] 0.70 mg/dL Low 0.73-1.22 [facility] Comment on above: Order Comment: Speci men Type: BLOOD SPECIMEN Ordering Facility: [facility] [place] Address: [address] [place] [address] Performed By: #### 1 9123-9, 38107-8, 42126-2 #### [facility] CLIA [id number] [address] [place] [address] [place] eGFRcr SerPlBld CKD-EPI 2020 91 mL/min/1.73m??? Normal >=60 [facility] Comment on above: Order Comment: Speci men Type: BLOOD SPECIMEN Ordering Facility: [facility] [place] Address: [address] [place], [place] [address] Result Comment: Calista mated Glomerular Filtration Rate [...] actual GFR. Performed By: #### 1 9123-9, 97306-4, 89505-6 #### [facility] CLIA [id number] [address] [place] [address] [place] Glucose [Mass/Vol] 156 mg/dL High 74-99 [facility] Comment on above: Order Comment: Kika bryant Type: BLOOD SPECIMEN Ordering Facility: [facility] [place] Address: [address] [place] [address] Result Comment: [employer] [...] 2016.39(Suppl 1). Performed By: #### 1 9123-9, 85184-5, 62614-5 #### [facility] CLIA [id number] [address] [place] [address] [place] Potassium [Moles/Vol] 3.8 mmol/L Normal 3.7-5.1 [facility] Comment on above: Order Comment: Kika bryant Type: BLOOD SPECIMEN Ordering Facility: [facility] [place] Address: [address] [place] [address] Performed By: #### 1 9123-9, 39877-6, 78741-0 #### [facility] CLIA [id number] [address] [place] [address] [place] Protein [Mass/Vol] 7.1 g/dL Normal 6.3-8.0 [facility] Comment on above: Order Comment: Speci men Type: BLOOD SPECIMEN Ordering Facility: [facility] [place] Address: [address] [place] [address] Performed By: #### 1 9123-9, 08921-9, 10973-8 #### [facility] CLIA [id number] [address] [place] [address] [place] Sodium [Moles/Vol] 139 mmol/L Normal 136-144 [facility] Comment on above: Order Comment: Speci men Type: BLOOD SPECIMEN Ordering Facility: [facility] [place] Address: [address] [place] [address] Performed By: #### 1 9123-9, 46617-1, 81302-4 #### [facility] CLIA [id number] [address] [place] [id number] [place] Urea nitrogen [Mass/Vol] 22 mg/dL Normal 9-24 [facility] Comment on above: Order Comment: Speci men Type: BLOOD SPECIMEN Ordering Facility: [facility] [place] Address: [address] [place] [address] Performed By: #### 1 9123-9, 21079-8, 71393-8 #### [facility] CLIA [id number] [address] [place] [address] [place] ECG COMPLETEon 09-09-2024 ECG COMPLETE Ventricular Rate : 1 19 BPM QRS Duration : 70 ms Q-T Interval : 318 ms QTC Calculation(Bazett) : 447 ms Calculated R Monroe : 31 degrees Calculated T Monroe : 59 degrees ATRIAL FIBRILLATION WITH RAPID VENTRICULAR RESPONSE NONSPECIFIC T WAVE ABNORMALITY ABNORMAL ECG NO PREVIOUS ECGS AVAILABLE Confirmed by MD MEADE VINAYAK ([id number]) on 09/13/2024 8:25:28 AM NAME : TYLOR PEDERSEN PID : [id number] : 1940 Gender : Male Race : ORD : [id number] Procedure Date : Sep 09 2024 18:51:28 Edit Date : Sep 13 2024 08:25:32 Diagnosis: ATRIAL FIBRILLATION WITH RAPID VENTRICULAR RESPONSE NONSPECIFIC T WAVE ABNORMALITY ABNORMAL ECG NO PREVIOUS ECGS AVAILABLE Confirmed by MD MEADE VINAYAK ([id number]) on 09/13/2024 8:25:28 AM Test Reason : Chest Pain Location : 191 : [facility] ED Overread By : MD MEADE VINAYAK Edited By : MD MEADE VINAYAK Referred By : , Acquired by : NINI MARTINEZ [facility] ED NOTEon 09-09-2024 ED NOTE HNO ID: [id number] Author: ANICETO VELAZQUEZ, FREIDA Service: Emergency Medicine Author Type: Registered Nurse Type: ED Notes Filed: 09/09/2024 23:36 Note Text: [facility] here for transport. Report given and care transferred [facility] ED NOTE HNO ID: [id number] Author: ANT LAYTON RN Service: Emergency Medicine Author Type: Registered Nurse Type: ED Notes Filed: 09/09/2024 22:48 Note Text: Accepted Dr Salazar [facility] bed 117 NTN [phone] ETA 60m [facility] ED NOTE HNO ID: [id number] Author: ANT LAYTON, FREIDA Service: Emergency Medicine Author Type: Registered Nurse Type: ED Notes Filed: 09/09/2024 21:28 Note Text: Family requesting admission to [facility] d/t patient [facility] PCP and h/o cardiac stents placed at [facility]. Call placed to [facility] nursing supervisor [employer] [phone], will forward info to hospitalist. Advised that hospitalist has several admissions pending and there will be a delay in acceptance and transfer if accepted. [facility] ED NOTE HNO ID: [id number] Author: DAINA SAMPSON, FREIDA Service: ? Author Type: Registered Nurse Type: [...] NOTEon 09-09-2024 ED PROV NOTE HNO ID: [id number] Author: TYLOR NG MD Service: Emergency Medicine Author Type: Physician Type: ED Provider Notes Filed: 09/09/2024 22:40 Note Text: ED Provider Note Patient Name: Tylor Pedersen : 1940 SERVICE DATE: 09/09/24 History Patient presents with: Chest Pain Tylor Pedersen is a 83 year old male [...] stents placed in 2021 by cardiology at [facility]. Past couple of days he has not [...] HIP FRACTURE(S) Left 11/[address] [facility] FAMILY HISTORY Problem Relation Age of Onset [...] Speci men Type: BLOOD SPECIMEN Ordering Facility: [facility] [place] Address: [address] [place] [address] Performed By: #### L [id number] #### [facility] CLIA [id number] [address] [place], [place] [address] [place] [address] HIGH SENSITIVITY TROPONIN T (SECOND)on 09-09-2024 Troponin T.cardiac High sensitivity method [Mass/Vol] 10 ng/L Normal <12 [facility] Comment on above: Order Comment: Speci annette Type: BLOOD SPECIMENOrdering Facility: [facility] [place] Address: [address] [place] [address] Performed By: #### L [id number] ####[facility] [id number] [place] [id number] [place] Magnesium SerPl-mCncon 09-09 Magnesium [Mass/Vol] 2.0 mg/dL Normal 1.7-2.3 [facility] Comment on above: Order Comment: Speci annette Type: BLOOD SPECIMEN Ordering Facility: [facility] [place] Address: [address] [place] [address] Performed By: #### 1 9123-9, 54223-9, 20386-1 #### [facility] CLIA [id number] [address] [place] [address] [place] NT-proBNP SerPl-mCncon 09-09 Natriuretic peptide.B prohormone N-Terminal [Mass/Vol] 2490 pg/mL High <450 [facility] Comment on above: Order Comment: Kika bryant Type: BLOOD SPECIMEN Ordering Facility: [facility] [place] Address: [address] [place] [address] Performed By: #### 1 9123-9, 56685-5, 05609-5 #### [facility] CLIA [id number] [address] [place] [address] [facility] PT panel Coag (PPP)on 2024 INR Coag (PPP) [Relative time] 1.4 {INR} High 0.9-1.3 [facility] Comment on above: Order Comment: Kika bryant Type: BLOOD SPECIMENOrdering Facility: [facility] [place] Address: [address] [place] [address] Result Comment: Marilee min K Antagonist (VKA) [...] Chest 2012, 141:7S-47S Alvino RA, et al. [facility] 2017, 70: 252-289 Performed By: #### 3 4528-0 ####[facility] [id number] [place] [address] [place] PT Coag (PPP) [Time] 14.9 s High <13.1 [facility] Comment on above: Order Comment: Kika bryant Type: BLOOD SPECIMENOrdering Facility: [facility] [place] Address: [address] [place] [address], [place] [address] Performed By: #### 3 4528-0 ####[facility] [id number] [place] [address] [facility] XR CHEST 1V FRONTALon 2024 XR [...] silhouette. Atherosclerotic calcifications of the thoracic aorta. Stained Glass Artist: PSCB Transcribe Date/Time: Sep 09 2024 9:50P Dictated by : SAVANNA GORE MD This examination was interpreted and the report reviewed and electronically signed by: SAVANNA GORE MD on Sep 09 2024 9:51PM EST [id number] Normal [facility] CNCOon 09-05-2024 CNCO Letter Text Normal [facility] CNPRadha 09-05-2024 CNPN Telephone (CAEPST) TYLOR PEDERSEN ([id number]) 1940 M Date Time Provider Department 09/05/24 SUDHA NOE During your visit today, we recorded the following information about you: Shwetha Kendrick 09/05/2024 4:33 PM Signed Lvm and letter Provider only at [facility] now Shwetha Kendrick 09/17/2024 10:27 AM Signed Spoke with family member, presumably daughter, aware of Dr. Noe cancelled appt, pt going to ER now and will r/s at their convenience for cardiology. Allergies As of Date: 09/05/2024 Noted Allergy Reaction ASPIRIN 04/19/2018 16 - Unknown OXYCODONE 04/19/2018 14 - Other: See Comments PERCODAN (OXYCODONE-ASPIRIN) 12/17/2004 1 - Mental Status Change Date Reviewed: 07/13/2024 Reviewed by: Cassandra Ann LPN - Fully Assessed Reason for Visit: Appointment [186] Prescriptions as of 09/17/2024 - levothyroxine (SYNTHROID) 50 mcg tablet Take [...] Anxiety [F41.9] 12/23/2021 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/19/2017 Cerebrovascular accident (CVA) (HCC) [I63.9] 12/23/2021 [...] 30-34.9 [E66.811] 02/14/2024 Encounter Status:Closed by SHWETHA KENDRCIK on 09/05/24 [facility] CNOVon 07-13-2024 CNOV Office Visit (FPWADS ) TYLOR PEDERSEN ([id number]) 1940 M Date Time Provider Department 07/13/24 4:20 PM PADDY ZAIDI During your visit today, we recorded the following information about you: Pulse Blood pressure 98/minute 125/76 Paddy Zaidi MD 07/13/2024 5:45 PM Signed Subjective Adrian Milian is an 83-year-old male with a history of anxiety, presenting with dyspnea, lower extremity edema, and anxiety attacks, accompanied by his caregiver, Hui Ray, who is providing additional history. Dyspnea atherosclerotic heart disease: Pending electophys eval in [place] in November. No regular orthotic assistant. 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 Atherosclerosis of [place] coronary artery of [place] heart without angina pectoris (I25.10) - Referral to cardiology in [place] initiated for further evaluation and management. - [...] - Prescription sent to pharmacy. Recording using Fantom software for draft documentation of the visit was discussed with the patient/authorized passenger representative; all questions welcomed and answered. Patient/authorized passenger representative agreed to proceed Paddy Zaidi MD Allergies As of Date: 07/13/2024 Noted Allergy Reaction ASPIRIN 04/19/2018 16 - Unknown OXYCODONE 04/19/2018 14 - Other: See Comments PERCODAN (OXYCODONE-ASPIRIN) 12/17/2004 1 - Mental Status Change Date Reviewed: 07/13/2024 Reviewed by: Cassandra Ann LPN - Fully Assessed Reason for Visit: Follow Up [171] Cmt: Multiple issues Primary Visit Diagnosis:Oxygen dependent [Z99.81] Other Visit Diagnoses:Atherosclerot ic cardiovascular disease [I25.10] Anxiety attack [F41.0] Leg swelling [M79.89] Adjustment disorder with mixed anxiety and depressed mood [F43.23] PAD (peripheral artery disease) [I73.9] Acquired hypothyroidism [E03.9] Pure hypercholesterolemia [E78.00] Idiopathic peripheral neuropathy [G60.9] Atherosclerosis of siletz tribe coronary artery of [place] tribe heart without angina pectoris [I25.10] Order(s):nitroglycerin sublingual (NITROQUICK) 0.3 mg SL tabletDissolve 1 tablet under the tongue every 5 minutes as needed.Disp: 25 tabletRfl: (more content not included)... Normal [facility] 07-13-[address] [facility] Telephone (TIAWS) TYLOR PEDERSEN ([id number]) 1940 M Date Time Provider Department 07/13/24 TREY SMITH During your visit today, we recorded the following information about you: Trey Smith, 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.[facility] 07/13/2024 4:40 PM Signed Review of OSH CT with most recent CT does not show worsening of right hemidiaphragm. Left lower lobe nodule no longer seen. Atelectasis in LLL but no further concern for PNA. Needs to complete overnight oxygen testing. Cassy Jones LPN 07/16/2024 9:23 AM Signed Fax to [facility] for overnight records. KELLY Baker Jennifer, MA 07/16/2024 11:51 AM Signed [facility] calls to report attempts made to connect [...] Status Change Date Reviewed: 07/13/2024 Reviewed by: Cassandra Ann LPN - Fully Assessed Prescriptions as [...] Anxiety [F41.9] 12/23/2021 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/19/2017 Cerebrovascular accident (CVA) (HCC) [I63.9] 12/23/2021 [...] 30-34.9 [E66.811] 02/14/2024 Encounter Status:Closed by CLICK, TREY Brush on 07/13/24 Normal [facility] CBC panel Auto (Bld)on 06-29 Erythrocyte distribution width (RBC) [Ratio] 13.9 % Normal 11.5-15.0 [facility] Comment on above: Order Comment: Speci men Type: BLOOD SPECIMENOrdering Facility: [facility] [place] Address: [address] [place] [address] Performed By: #### 5 8410-2 ####[facility] [id number] [place] [address] [place] Hematocrit (Bld) [Volume fraction] 45.0 % Normal 39.0-51.0 [facility] Comment on above: Order Comment: Speci men Type: BLOOD SPECIMENOrdering Facility: [facility] [place] Address: [address] [place] [address] Performed By: #### 5 8410-2 ####[facility] [id number] [place] [address] [place] Hemoglobin (Bld) [Mass/Vol] 14.1 g/dL Normal 13.0-17.0 [facility] Comment on above: Order Comment: Speci men Type: BLOOD SPECIMENOrdering Facility: [facility] [place] Address: [address] [place] [address] Performed By: #### 5 8410-2 ####[facility]ITAL[facility] [id number] [place] [address] [place] MCH (RBC) [Entitic mass] 29.9 pg Normal 26.0-34.0 [facility] Comment on above: Order Comment: Speci men Type: BLOOD SPECIMENOrdering Facility: [facility] [place] Address: [address] [place] [address] Performed By: #### 5 8410-2 ####[facility]ITALKANDI [id number] [address] MCHC (RBC) [Mass/Vol] 31.3 g/dL Normal 30.5-36.0 [facility] Comment on above: Order Comment: Speci men Type: BLOOD SPECIMENOrdering Facility: [facility] [place] Address: [address] [place] [address] Performed By: #### 5 8410-2 ####[facility]ITALK[facility]I [id number] [address] [place] MCV (RBC) [Entitic vol] 95.5 fL Normal 80.0-100.0 [facility] Comment on above: Order Comment: Speci men Type: BLOOD SPECIMENOrdering Facility: [facility] [place] Address: [address] [place] [address] Performed By: #### 5 8410-2 ####[facility]ITALK[facility]I [id number] [place] [address] [place] Nucleated RBC (Bld) [#/Vol] 10*3/uL Normal <0.01 [facility] Comment on above: Order Comment: Speci men Type: BLOOD SPECIMENOrdering Facility: [facility] [place] Address: [address] [place] [address] Performed By: #### 5 8410-2 ####[facility]ITALNCLIA [id number] [place] [address] [place] Platelet mean volume (Bld) [Entitic vol] 9.9 fL Normal 9.0-12.7 [facility] Comment on above: Order Comment: Speci men Type: BLOOD SPECIMENOrdering Facility: [facility] [place] Address: [address] [place] [address] Performed By: #### 5 8410-2 ####[facility]ITALNCLIA [id number] [place] [address] [place] Platelets (Bld) [#/Vol] 164 10*3/uL Normal 150-400 [facility] Comment on above: Order Comment: Speci men Type: BLOOD SPECIMENOrdering Facility: [facility] [place] Address: [address] [place] [address] Performed By: #### 5 8410-2 ####[facility]ITALNCLIA [id number] [place] [address] [place] RBC (Bld) [#/Vol] 4.71 10*6/uL Normal 4.20-6.00 [facility] Comment on above: Order Comment: Speci men Type: BLOOD SPECIMENOrdering Facility: [facility] [place] Address: [address] [place] [address] Performed By: #### 5 8410-2 ####[facility]ITALNCLIA [id number] [place] [address] [place] WBC (Bld) [#/Vol] 11.36 10*3/uL High 3.70-11.00 [facility] Comment on above: Order Comment: Speci men Type: BLOOD SPECIMENOrdering Facility: [facility] [place] Address: [address] [place] [address] Performed By: #### 5 8410-2 ####[facility]ITALNCLIA [id number] [place] [address] [place] CNOVon 06-29-2024 CNOV Office Visit (PULMWS ) TYLOR PEDERSEN ([id number]) 1940 M Date Time Provider Department 06/29/24 1:00 PM TREY SMITH PULMWS During your visit today, we recorded the following information about you: Pulse Respiration Blood pressure 69/minute 18/minute 108/64 Trey Smith, 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.[employer]ANT[employer] ASSISTANT 06/29/2024 7:32 PM Signed Pulmonary Medicine Patients name: Tylor Campbell PCP: Paddy Zaidi MD CC: follow-up HPI: Tylor Pedersen is a 83 year old male former 83-cqti-merk smoker quitting in 1992 with PMH significant for obesity, coronary artery disease s/p CABG and stent, previous stroke, GERD, HLD, prostate cancer s/p radiation, HTN, PAF on AC, central sleep apnea not wearing PAP, chronic hypoxemic respiratory failure. Current inhaled therapy Advair and PRN Albuterol. He presents today for follow-up with his collar trimmer. YOLANDA 03/2024 with exertional dyspnea, chest tightness and wheezing. Started on Advair at that time. Oximetry with ambulation at that time did not show need for supplemental O2 with exertion. He and his collar trimmer insist he can't even stand up without [...] in acut (more content not included)... Normal [facility] Comprehensive metabolic 2000 panelon 06-29-2024 Albumin [Mass/Vol] 4.0 g/dL Normal 3.9-4.9 [facility] Comment on above: Order Comment: Speci men Type: BLOOD SPECIMENOrdering Facility: [facility] [place] Address: [address] [place] [address] Performed By: #### 2 4323-8 ####[facility] MILLWNCLIA [id number] [place] [address] [place] ALP [Catalytic activity/Vol] 123 U/L High 38-113 [facility] Comment on above: Order Comment: Speci men Type: BLOOD SPECIMENOrdering Facility: [facility] [place] Address: [address] [place] [address] Performed By: #### 2 4323-8 ####[facility] MILLWNCLIA [id number] [place] [address] [place] ALT [Catalytic activity/Vol] 12 U/L Normal 10-54 [facility] Comment on above: Order Comment: Speci men Type: BLOOD SPECIMENOrdering Facility: [facility] [place] Address: [address] [place] [address] Performed By: #### 2 4323-8 ####[facility] NEIL MILLTOWNCLIA [id number] [place] [address] [place] Anion gap [Moles/Vol] 11 mmol/L Normal 8-15 [facility] Comment on above: Order Comment: Speci men Type: BLOOD SPECIMENOrdering Facility: [facility] [place] Address: [address] [place] [address] Performed By: #### 2 4323-8 ####[facility] DEYANIRA [id number] [place] [address] [place] AST [Catalytic activity/Vol] 15 U/L Normal 14-40 [facility] Comment on above: Order Comment: Speci men Type: BLOOD SPECIMENOrdering Facility: [facility] [place] Address: [address] [place] [address] Performed By: #### 2 4323-8 ####[facility] YANGWinstonNCLOCA [id number] [place] [address] [place] Bilirubin [Mass/Vol] 0.8 mg/dL Normal 0.2-1.3 [facility] Comment on above: Order Comment: Speci men Type: BLOOD SPECIMENOrdering Facility: [facility] [place] Address: [address] [place] [address] Performed By: #### 2 4323-8 ####[facility]ITALNCLIA [id number] [place] [address] [place] Calcium [Mass/Vol] 9.5 mg/dL Normal 8.5-10.2 [facility] Comment on above: Order Comment: Speci men Type: BLOOD SPECIMENOrdering Facility: [facility] [place] Address: [address] [place] [address] Performed By: #### 2 4323-8 ####[facility]ITALNCLIA [id number] [place] [address] [place] Chloride [Moles/Vol] 101 mmol/L Normal 98-107 [facility] Comment on above: Order Comment: Speci men Type: BLOOD SPECIMENOrdering Facility: [facility] [place] Address: [address] [place] [address] Performed By: #### 2 4323-8 ####[facility] HOSPITALWNCLIA [id number] [place] [address] [place] CO2 [Moles/Vol] 26 mmol/L Normal 22-30 [facility] Comment on above: Order Comment: Speci men Type: BLOOD SPECIMENOrdering Facility: [facility] [place] Address: [address] [place] [address] Performed By: #### 2 4323-8 ####[facility] [id number] [place] [address] [place] Creatinine [Mass/Vol] 0.75 mg/dL Normal 0.73-1.22 [facility] Comment on above: Order Comment: Speci men Type: BLOOD SPECIMENOrdering Facility: [facility] [place] Address: [address] [place] [address] Performed By: #### 2 4323-8 ####[facility] [id number] [place] [address] [place] Creatinine and Glomerular filtration rate.predicted panel (S/P/Bld) 89 mL/min/1.73m??? Normal >=60 [facility] Comment on above: Order Comment: Speci men Type: BLOOD SPECIMENOrdering Facility: [facility] [place] Address: [address] [place] [address] Result Comment: Calista mated Glomerular Filtration Rate [...] Performed By: #### 2 4323-8 ####[facility]OS[facility]ITALWNCLIA [id number] [place] [address] [place] Glucose [Mass/Vol] 111 mg/dL High 74-99 [facility] Comment on above: Order Comment: Speci men Type: BLOOD SPECIMENOrdering Facility: [facility] [place] Address: [address] [place], [place] [address] Result Comment: The [employer] [place] [employer] [...] 2016.39(Suppl 1). Performed By: #### 2 4323-8 ####[facility] HOSPITALWOHLIA [id number] [place] [address] [place] Potassium [Moles/Vol] 4.4 mmol/L Normal 3.7-5.1 [facility] Comment on above: Order Comment: Lanii men Type: BLOOD SPECIMENOrdering Facility: [facility] [place] Address: [address] [place] [address] Performed By: #### 2 4323-8 ####[facility]OSPITALWNCLIA [id number] [place] [address] [place] Protein [Mass/Vol] 6.9 g/dL Normal 6.3-8.0 [facility] Comment on above: Order Comment: Lanii men Type: BLOOD SPECIMENOrdering Facility: [facility] [place] Address: [address] [place], [place] [address] Performed By: #### 2 4323-8 ####[facility]ITALWNCLIA [id number] [place] [address] [place] Sodium [Moles/Vol] 138 mmol/L Normal 136-144 [facility] Comment on above: Order Comment: Speci men Type: BLOOD SPECIMENOrdering Facility: [facility] [place] Address: [address] [place], [place] [address] Performed By: #### 2 4323-8 ####[facility]ITALNCL[facility] [id number] [place] [address] [place] Urea nitrogen [Mass/Vol] 23 mg/dL Normal 9-24 [facility] Comment on above: Order Comment: Speci men Type: BLOOD SPECIMENOrdering Facility: [facility] [place] Address: [address] [place] [address] Performed By: #### 2 4323-8 ####[facility]ITALNCL[facility] [id number] [place] [address] [place] Lipid 1996 panelon 5 Cholesterol [Mass/Vol] 125 mg/dL Normal <200 [facility] Comment on above: Order Comment: Speci men Type: BLOOD SPECIMENOrdering Facility: [facility] [place] Address: [address] [place] [address] Result Comment: <200 mg/dL, Desirable 200-239 mg/dL, Borderline high >239 mg/dL, High Performed By: #### 2 4331-1 ####[facility] LABCLIA [id number] [place] [address] [place] [facility] [id number] [place] [address] [place]#### 3016-3 ####[facility] LABCLIA [id number] [place] [id number] [place] Cholesterol in HDL [Mass/Vol] 44 mg/dL Normal >39 [facility] Comment on above: Order Comment: Speci men Type: BLOOD SPECIMENOrdering Facility: [facility] [place] Address: [address] [place] [address] Result Comment: 40-5 9 mg/dL, Acceptable >59 mg/dL, High: Negative risk factor for coronary heart disease <40 mg/dL, Low: Positive risk factor for coronary heart disease Performed By: #### 2 4331-1 ####[facility] LABCLIA [id number] [place] [address] [place] [facility] [id number] [place] [address] [place]#### 3016-3 ####[facility] LABCLIA [id number] [address] STATES OF [place] Cholesterol in LDL [Mass/Vol] 66 mg/dL Normal <100 [facility] Comment on above: Order Comment: Speci men Type: BLOOD SPECIMENOrdering Facility: [facility] [place] Address: [address] [place] [address] Result Comment: <100 mg/dL, Optimal 100-129 mg/dL, Near optimal/above optimal 130-159 mg/dL, Borderline high 160-189 mg/dL, High >189 mg/dL, Very high Secondary prevention optimal LDL Cholesterol levels are recommended to be <70 mg/dL LDL cholesterol is calculated using the Yost-NIH equation. Performed By: #### 2 4331-1 ####[facility] LABCLIA [id number] [address] STATES OF [facility] [id number] [address] STATES OF [place]#### 3016-3 ####[facility] LABCLIA [id number] [place] [id number] [place] Cholesterol in LDL/Cholesterol in HDL [Mass ratio] 1.50 {ratio} Normal <2.54 [facility] Comment on above: Order Comment: Speci men Type: BLOOD SPECIMENOrdering Facility: [facility] [place] Address: [address] [place] [address] Result Comment: Ana red: 1. National Cholesterol Education Program ATP III Guideline At-A-Glance Quick Desk Reference: National Heart, Lung, and Blood [place]. National Institutes of Health. 2001: NIH Publication No. 01-3305. 2. An International Atherosclerosis Society position paper: global recommendations for the management of dyslipidemia: executive summary, Atherosclerosis. 2014: 232(2):410-413. Performed By: #### 2 4331-1 ####[facility] LABCLIA [id number] [address] [id number] [place] [address] [place]#### 3016-3 ####[facility] LABCLIA [id number] [address] STATES OF [place] Cholesterol in VLDL [Mass/Vol] 11 mg/dL Normal <30 [facility] Comment on above: Order Comment: Lanii men Type: BLOOD SPECIMENOrdering Facility: [facility] [place] Address: [address] [place] [address] Performed By: #### 2 4331-1 ####[facility] LABCLIA [id number] [place] [id number] [place] [address]#### 3016-3 ####[facility] LABCLIA [id number] [place] [id number] [place] Cholesterol non HDL [Mass/Vol] 81 mg/dL Normal <130 [facility] Comment on above: Order Comment: Kika men Type: BLOOD SPECIMENOrdering Facility: [facility] [place] Address: [address] [place] [address] Result Comment: <130 mg/dL, Optimal 130-159 mg/dL, Near optimal/above optimal 160-189 mg/dL, Borderline high 190-219 mg/dL, High >219 mg/dL, Very high Secondary prevention optimal non HDL Cholesterol levels are recommended to be <100 mg/dL Performed By: #### 2 4331-1 ####[facility] LABCLIA [id number] [facility]ERK [address] [place] [address] [place] OF [facility] [id number] [place] [address] [place]#### 3016-3 ####[facility] LABCLIA [id number] [address] [place] [address] [place] Cholesterol.total/Choles terol in HDL [Mass ratio] 2.84 {ratio} Normal <5.10 [facility] Comment on above: Order Comment: Speci men Type: BLOOD SPECIMENOrdering Facility: [facility] [place] Address: [address] [place] [address] Performed By: #### 2 4331-1 ####[facility] LABCLIA [id number] [address], [facility] [place] OF [facility] [id number] [place] [address] [place]#### 3016-3 ####[facility] LABCLIA [id number] [address] [place] [address] [place] FASTING TIME 12 hrs Normal [facility] Comment on above: Order Comment: Speci men Type: BLOOD SPECIMENOrdering Facility: [facility] [place] Address: [address] [place], [place] [address] Performed By: #### 2 4331-1 ####[facility] LABCLIA [id number] [facility] [address] [place] [address] [place] [facility] [id number] [place] [address] [place]#### 3016-3 ####[facility] LABCLIA [id number] [facility] [address] [place] [address] Triglyceride [Mass/Vol] 71 mg/dL Normal <150 [facility] Comment on above: Order Comment: Kika bryant Type: BLOOD SPECIMENOrdering Facility: [facility] [place] Address: [address] [place] [address] Result Comment: <150 mg/dL, Normal 150-199 mg/dL, Borderline high 200-499 mg/dL, High >499 mg/dL, Very high Performed By: #### 2 4331-1 ####[facility] LABCLIA [id number] [address] [id number] [address]#### 3016-3 ####[facility] LABCLIA [id number] [address] PT panel Coag (PPP)on 2024 INR Coag (PPP) [Relative time] 1.2 {INR} Normal 0.9-1.3 [facility] Comment on above: Order Comment: Kika bryant Type: BLOOD SPECIMENOrdering Facility: [facility] [place] Address: [address] [place] [address] Result Comment: Marilee min K Antagonist (VKA) [...] Chest 2012, 141:7S-47S Alvino RA, et al. [facility] 2017, 70: 252-289 Performed By: #### 3 4528-0 ####[facility] [id number] [place] [address] [place] PT Coag (PPP) [Time] 12.6 s Normal <13.1 [facility] Comment on above: Order Comment: Speci men Type: BLOOD SPECIMENOrdering Facility: [facility] [place] Address: [address] [place] [address] Performed By: #### 3 4528-0 ####[facility] [id number] [address] STATES OF [place] TSH SerPl-aCncon 06-29-2024 TSH Qn 2.210 m[IU]/L Normal 0.270-4.200 [facility] Comment on above: Order Comment: Speci men Type: BLOOD SPECIMENOrdering Facility: [facility] [place] Address: [address] [place] [address] Performed By: #### 2 4331-1 ####[facility] [id number] [address] OF [facility] [id number] [place] [address] OF [place]#### 3016-3 ####[facility] [id number] [address] OF [place] CNOVon 03-27-2024 CNOV Office Visit (PULMWS ) TYLOR PEDERSEN ([id number]) 1940 M Date Time Provider Department 03/27/24 2:00 PM TREY SMITH PULMWS During your visit today, we recorded the following information about you: Pulse Respiration Blood pressure 90/minute 18/minute 122/80 Trey Smith APRN.CNP 03/27/2024 5:53 PM Signed Pulmonary Medicine Patients name: Tylor Campbell PCP: Paddy Zaidi MD CC: follow-up HPI: Tylor Pedersen is a 83 year old male former 74-hgow-mbdx smoker quitting in 1992 with PMH significant [...] Had also just previously been hospitalized at [facility] for Pneumonia. At his last visit, he [...] tightness. Has frequent wheezing that prompts his collar trimmer to remind him to use Albuterol. No [...] 160-9-4.8 mcg/actuation HFA aerosol inhaler Generic drug: giaaetkbdg-pshyfgim-yjf moterol Inhale 2 Puffs as instructed two [...] for arthra (more content not included)... Normal [facility] CT CHEST WO IVCONon 03-27-19 CT CHEST WO IVCON * * *Final Report* * * DATE OF EXAM: Mar 27 2024 3:54PM [facility] 0541 - CT CHEST WO IVCON / [...] enlargement. Status post CABG surgery with severe [place] coronary artery atherosclerotic calcifications are noted, although [...] significantly enlarged lymph nodes in the chest. Stained Glass Artist: FATOUMATA Transcribe Date/Time: Mar 31 2024 5:10P Dictated by : VIDA CAAL MD This examination was interpreted and the report reviewed and electronically signed by: VIDA CAAL MD on Mar 31 2024 5:18PM EST [id number] Normal [facility] OXIMETRY WITH AMBULATIONon 0 03-27-2024 Mayra SimsOSCAR 03/27/2024 1:50 PM RESPIRATORY THERAPY OXIMETRY WITH [...] Wheeled Walker NAME: MARY Guillaume PATIENT NAME: Tylor Pedersen DATE: March 27, 2024 TIME: 1:49 PM Comment: Patient does not have a faster pace [facility] Tessa 03-21-[address] [facility] Telephone (ELIZABETH) BURGESSTYLOR Milian ([id number]) 1940 M Date Time Provider Department 03/21/24 [...] with Dr. Zaidi this week Hever Martínez APRN.Shena Danielle 03/21/2024 1:07 PM Signed I spoke [...] Status Change Date Reviewed: 03/05/2024 Reviewed by: Cassy Jones LPN - Fully Assessed Reason for Visit: Appointment [186] Prescriptions as of 03/22/2024 - furosemide (LASIX) 20 mg tablet Take 1 tablet by mouth once daily. - warfarin (COUMADIN) 2.5 mg tablet TAKE 1 TABLET BY MOUTH ONCE DAILY DIRECTED - vzgebakgco-rnpjqtxc-ysh moterol (BREZTRI AEROSPHERE) 160-9-4.8 mcg/actuation HFA aerosol [...] Anxiety [F41.9] 12/23/2021 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/19/2017 Cerebrovascular accident (CVA) (HCC) [I63.9] 12/23/2021 [...] acute postp (more content not included)... Normal [facility] Tessa 03-06-2024 SHANNANN Telephone (PULTrudiWS) TYLOR PEDERSEN ([id number]) 1940 M Date Time Provider Department 03/06/24 BURTON HUYNH During your visit today, we recorded the following information about you: Judy Wong MA 03/06/2024 9:29 AM Signed Analilia - Pharmacist from [facility] calling and asking if there is an alternative to the Breztri inhaler? Patient has a $100.00 copay and is unable to afford it. Cassy Jones LPN 03/06/2024 10:10 AM Signed Breztrguero and Trebarbaragy both showing as preferred level 1 in [...] if SW can inquire about medication assistance. Cassy Jones LPN Allergies As of Date: 03/06/2024 Noted Allergy Reaction ASPIRIN 04/19/2018 16 - Unknown OXYCODONE 04/19/2018 14 - Other: See Comments PERCODAN (OXYCODONE-ASPIRIN) 12/17/2004 1 - Mental Status Change Date Reviewed: 03/05/2024 Reviewed by: Cassy Jones LPN - Fully Assessed Prescriptions as of 03/08/2024 - glrzgyoaeu-nzpohfti-kpf moterol (BREZTRI AEROSPHERE) 160-9-4.8 mcg/actuation HFA aerosol [...] Anxiety [F41.9] 12/23/2021 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/19/2017 Cerebrovascular accident (CVA) (HCC) [I63.9] 12/23/2021 [...] BMI 30-34.9 [E66.811] 02/14/2024 Encounter Status:Closed by CASSY JONES on 03/08/24 [facility] Telephone (FPWADS) TYLOR PEDERSEN ([id number]) 1940 M Date Time Provider Department 03/06/24 PADDY ZAIDI FPPellePharm During your visit today, we recorded the [...] a day. Call Hui back with response [phone]-did advise her to clean out VM so we can leave messages. FREIDA Olivarez Jeffery R, MD 03/16/2024 5:19 PM Signed Just take 1 time dose of 5 mg. One extra pill just one dose. Check INR in 2 weeks MD True Sheehan, Violetta Gee, FREIDA 03/17/2024 9:32 AM Signed Called Hiu at [phone] Vm still full-could not leave message. Called all other listed numbers- no answer. VM's are all full-could not leave message. Not active on MyChart. Will need to try again later. FREIDA Olivarez Melanie, RN 03/19/2024 10:52 AM Signed Called [phone]. No answer. Mailbox still full. Isabell Sood, [...] Status Change Date Reviewed: 03/05/2024 Reviewed by: Cassy Jones LPN - Fully Assessed Reason for Visit: Anticoagulation [8] Prescriptions as of 03/21/2024 - warfarin (COUMADIN) 2.5 mg tablet TAKE 1 TABLET BY MOUTH ONCE DAILY DIRECTED - ufdaicdxfo-azcvhzap-fbc moterol (BREZTRI AEROSPHERE) 160-9-4.8 mcg/actuation HFA aerosol [...] Anxiety [F41.9] 12/23/2021 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/19/2017 Cerebrovascular accident (CVA) (HCC) [I63.9] 12/23/2021 [...] cord [J38 (more content not included)... Normal [facility] CNOVon 03-05-2024 CNOV Office Visit (PULMWS ) TYLOR PEDERSEN ([id number]) 1940 M Date Time Provider Department 03/05/24 3:15 PM BURTON HUYNH PULMDAI During your visit today, we recorded the following information about you: Pulse Respiration Blood pressure Weight 112/minute 14/minute 122/68 96.2 kg Height 1.715 m Burton Huynh MD 03/05/2024 4:00 PM Signed . Respiratory [place] Note Patient name: Tylor Pedersen PCP: Paddy Zaidi MD Referring Physician: Hever Martínez CNP Consultation requested by Hever Martínez for an opinion regarding COPD. My final recommendations will be communicated back to the requesting physician by way of shared Medical record or letter to requesting physician via US mail. CC: COPD HPI: Tylor Pedersen 83 year old male former 18-bhfb-egae smoker quitting in 1992 with PMH significant for obesity, coronary artery disease s/p CABG and stent, previous stroke, GERD, HLD, prostate cancer s/p radiation, HTN, PAF on AC, central sleep apnea not wearing PAP, chronic hypoxemic respiratory failure being sent for evaluation of COPD. Recently hospitalized at [facility] for pneumonia. CT of the chest shows [...] recurrent bronchitis. DME: [employer] DATA: PFT: PFT [facility] 10/23/2018; FVC 2.41 L 57% FEV1 1.62 L 54% FEV1/FVC 67% No improvement post-bronchodilator TLC 5.01 L 76% RV 2.60 L 94% RV/TLC 52% DLCO 15.2 73% Imaging / Diagnostic Studies: [facility] MR#: [id number] Acct: [id number] Name: TYLOR PEDERSEN Rep #: [id number] : 1940 M 83 From: Shayne Holt [...] the tongue every 5 minutes as needed. ywvahejltb-wumtnigh-mwl moterol (BREZTRI AEROSPHERE) 160-9-4.8 mcg/actuation HFA aerosol inhaler Inhale 2 Puffs as instructed two times a day. albuterol HFA (PROVENTIL HFA, VENTOLIN HFA) 90 mcg/actuation inhaler Inhale 2 Puffs as instructed every 4 hours as needed for wheezing/shortness of breath. warfarin (COUMADIN) (more content not included)... Normal [facility] No Panel Informationon 03-05 DLCO (ml/min/mmHg) 12.07 ml/min/mmHg [facility] DLCO LLN (ml/min/mmHg) 11.87 ml/min/mmHg [facility] DLCO PREDICTED (ml/min/mmHg) 21.80 ml/min/mmHg [facility] DLCO ULN (ml/min/mmHg) 31.74 ml/min/mmHg [facility] DLCO/VA (ml/min/mmHg/L) 4.14 ml/m in/mmHg/ L [facility] DLCO/VA PREDICTED (ml/min/mmHg/L) 3.63 ml/min/mmHg/ L [facility] DLCOcor PREDICTED (ml/min/mmHg) 21.80 ml/min/mmHg [facility] ERV PREDICTED (L) 1.12 L/S [facility] FEF25% POST (L/S) 3.52 L/S [facility] FEF25% PRE (L/S) 2.38 L/S [facility] CAX38-51% LLN (L/S) 0.63 L/S [facility] HDW48-31% POST (L/S) 0.46 L/S [facility] GFD80-53% PRE (L/S) 0.42 L/S [facility] WYU68-21% PREDICTED (L/S) 1.77 L/S [facility] FEF75% LLN (L/S) 0.13 L/S [facility] FEF75% POST (L/S) 0.13 L/S [facility] FEF75% PRE (L/S0 0.14 L/S [facility] FEF75% PREDICTED (L/S) 0.41 L/S [facility] FEF75% ULN (L/S) 1.23 L/S [facility] FET POST (S) 10.37 S [facility] FET PRE (S) 11.27 S [facility] FEV1 LLN (L) 1.76 L [facility] FEV1 PRE (L) 1.19 L [facility] FEV1 PREDICTED (L) 2.46 L [facility] FEV1 ULN (L) 3.11 L [facility] FEV1/FVC LLN (%) 61 % [facility] FEV1/FVC POST (%) 64 % [facility] FEV1/FVC PRE (%) 60 % [facility] FEV1/FVC PREDICTED (%) 76 % [facility] FEV1_POST (L) 1.23 L [facility] FVC LLN (L) 2.46 L [facility] FVC POST (L) 1.93 L [facility] FVC PRE (L) 1.97 L [facility] FVC PREDICTED (L) 3.35 L [facility] FVC ULN (L) 4.26 L [facility] IC PREDICTED (L) 2.24 L/S [facility] PEF LLN (L/S) 3.95 L/S [facility] PEF POST (L/S) 4.29 L/S [facility] PEF PRE (L/S) 4.00 L/S [facility] PEF ULN (L/S) 8.26 L/S [facility] SVC LLN (L) 2.46 L/S [facility] SVC PREDICTED (L) 3.35 L/S [facility] SVC ULN (L) 4.26 L/S [facility] VA (L) 2.92 L [facility] VA PREDICTED (L) 6.34 L [facility] [address] [place] [address] Test Date: 2024-03-05 Pat Name: TYLOR PEDERSEN Department: Room: 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 PULMONARY FUNCTION LAB [facility] PT panel Coag (PPP)on 2024 INR Coag (PPP) [Relative time] 1.5 {INR} High 0.9-1.3 [facility] Comment on above: Order Comment: Speci men Type: BLOOD SPECIMENOrdering Facility: [facility] Address: [address] [phone] Result Comment: Marilee min K Antagonist (VKA) [...] Chest 2012, 141:7S-47S Alvino RA, et al. [facility] 2017, 70: 252-289 Performed By: #### 3 4528-0 ####[facility] [id number] [place] [address] [place] PT Coag (PPP) [Time] 15.8 s High <13.1 [facility] Comment on above: Order Comment: Speci men Type: BLOOD SPECIMENOrdering Facility: [facility] Address: [address] [phone] Performed By: #### 3 4528-0 ####[facility] [id number] [address] [place] CNPRadha 02-15-2024 TALHA Telephone (FPWADS) TYLOR PEDERSEN ([id number]) 1940 M Date Time Provider Department 02/15/24 [...] of symptoms: N/A Hui Call patient at: [phone] (home) [phone] (cell) Was an appointment scheduled: No Closing statement: Corrina M Paddy Kate MD 02/16/2024 9:59 AM Signed [...] for 1x per week, standing order for [place] lab. Once he's on a steady dose can cut this back to 1x per sergio . MD Marissa Sheehan Lisa, LPN 02/16/2024 10:22 AM Signed Patients son aware that medication was sent to [facility] in [place]. Son stated he understood that blood work needed drawn in 1 week in [place]. Allergies As of Date: 02/15/2024 Noted Allergy Reaction ASPIRIN 04/19/2018 16 - Unknown OXYCODONE 04/19/2018 14 - Other: See Comments PERCODAN (OXYCODONE-ASPIRIN) 12/17/2004 1 - Mental Status Change Date Reviewed: 02/14/2024 Reviewed by: Cassandra Ann LPN - Fully Assessed Reason for Visit: Medication Problem [65] Primary Visit Diagnosis:Chronic atrial fibrillation (HCC) [I48.20] Other Visit Diagnosis:overcoiler current use of anticoagulant therapy [Z79.01] Order(s):warfarin (COUMADIN) 2.5 mg tabletTake 1 tablet by mouth daily as directed.Disp: 30 tabletRfl: 0 PROTHROMBIN TIME [SQPT] Order #: [id number] STANDING Prescriptions as of 02/16/2024 - warfarin [...] Anxiety [F41.9] 12/23/2021 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/19/2017 Cerebrovascular accident (CVA) (HCC) [I63.9] 12/23/2021 Chronic obstructive asthma with exacerbation (H*12/18/2021 Dysarthria [R47.1] 12/23/2021 Dysphagia [R13.10] 12/23/2021 Encounter for immunization [Z23] 01/12/2018 Gastroesophageal reflux disease [K21.9] 12/23/2021 Hoarseness [R49.0] 11/05/2016 Hypokalemia [E87.6] 12/23/2021 Malignant neoplasm of prostate ([facility]) [C61] 12/23/2021 Moderate COPD (chronic obstructive pulmonary di*11/19/2015 Myocardial infarction ([facility]) [I21.9] 12/18/2021 Neurological symptoms [R29.90] 12/23/2021 Other acute postprocedural pain [G89.18] 09/13/2017 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 Normal [facility] CNOVon 02-14-2024 CNOV Office Visit (ELIZABETH ) TYLOR PEDERSEN ([id number]) 1940 M Date Time Provider Department 02/14/24 2:00 PM HEVER MARTÍNEZ During your visit today, we recorded the following information about you: Pulse Blood pressure 96/minute 132/78 Hever Martínez APRN.GRANTS ASSISTANT 02/14/2024 4:39 PM Signed This note was created using [employer] ([employer]riter. Subjective Tylor Pedersen is a 83 year old male. Patient here with delivery consultant. Treated for RLL pneumonia at the ER, [...] of AFIB and CAD, never seen a orthotic assistant. Uses walker for ambulation, sleeps in the [...] HIP FRACTURE(S) Left 11/[address] [facility] ALLERGIES Aspirin, Oxycodone, and Percodan [Oxycodone-Aspirin] MEDICATIONS [...] type (HCC) Recommend to establish care with coloring room worker, continue oxygen. - CONSULT TO PULMONARY MEDICINE 3. Adjustment disorder with mixed anxiety an (more content not included)... [facility] TALHA Telephone (FPWADS) TYLOR PEDERSEN ([id number]) 1940 M Date Time Provider Department 02/14/24 PADDY ZAIDI FPWAPATY During your visit today, we recorded the following information about you: Varsha Byers 02/14/2024 4:49 PM Signed [facility] is calling regarding the Eliquis and stated [...] Authorizing Provider: PADDY ZAIDI MD Hummel, Megan, APRN.[facility] 02/15/2024 9:01 AM Signed New Rx sent Hever Martínez APRN.GRANTS ASSISTANT Allergies As of Date: 02/14/2024 Noted Allergy Reaction ASPIRIN 04/19/2018 16 - Unknown OXYCODONE 04/19/2018 14 - Other: See Comments PERCODAN (OXYCODONE-ASPIRIN) 12/17/2004 1 - Mental Status Change Date Reviewed: 02/14/2024 Reviewed by: Cassandra Ann LPN - Fully Assessed Reason for [...] Anxiety [F41.9] 12/23/2021 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/19/2017 Cerebrovascular accident (CVA) ([facility]) [I63.9] 12/23/2021 Chronic obstructive asthma with exacerbation (H*12/18/2021 Dysarthria [R47.1] 12/23/2021 Dysphagia [R13.10] 12/23/2021 Encounter for immunization [Z23] 01/12/2018 Gastroesophageal reflux disease [K21.9] 12/23/2021 Hoarseness [R49.0] 11/05/2016 Hypokalemia [E87.6] 12/23/2021 Malignant neoplasm of prostate ([facility]) [C61] 12/23/2021 Moderate COPD (chronic obstructive pulmonary di*11/19/2015 Myocardial infarction ([facility]) [I21.9] 12/18/2021 Neurological symptoms [R29.90] 12/23/2021 Other acute postprocedural pain [G89.18] 09/13/2017 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] 12/23/2021 Paralysis of vocal cords and larynx, unspecifie*01/04/2017 Pneumonia due to Streptococcus pneumoniae ([facility])*12/18/2021 Right hemiparesis ([facility]) [G81.91] 12/23/2021 Weakness [R53.1] 06/05/2021 Coronary artery [...] Encounter Status:Closed by SHAYNE ZAIDI on 02/14/24 [facility] Telephone (FPWADS) PEDERSENTYLOR Mann ([id number]) 1940 M Date Time Provider Department 02/14/24 HEVER MARTÍNEZ During your visit today, we recorded the following information about you: Shena Muñoz 02/14/2024 4:12 PM Signed 1st attempt to reach for scheduling, left voicemail. Adrian was seen at [facility] care today, and Hever referred him to see Pulmonology. He was unable to stay for scheduling but he and his caregiver said they would like to do all the appointments at [place]. Although there are many available times to complete the respiratory tests required for new pulmonology appointments on the same day, there are not any openings where both the respiratory tests and the pulmonology provider appointment are available the same day soon. Shena Guillory 02/17/2024 7:21 PM Signed Tried calling again, phone line busy. 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 Placed in provider's inbox for review. Route to MA scanning Allergies As of Date: 02/13/2024 Noted Allergy Reaction ASPIRIN 04/19/2018 16 - Unknown OXYCODONE 04/19/2018 14 - Other: See Comments PERCODAN (OXYCODONE-ASPIRIN) 12/17/2004 1 - Mental Status Change Date Reviewed: 06/07/2023 Reviewed by: Ge Will LPN - Fully Assessed Reason for Visit: Received Outside Medical Records [[id number]] Cmt: 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, [address] CA,Total 9.5 mg/dL Normal 8.5-10.1 [facility] Comment on above: Performed By: #### L 500.2500, L100.0100 ####[facility] [address] [place], [address] Chloride [Moles/Vol] 102 mmol/L Normal 98-107 [facility] Comment on above: Performed By: #### L 500.2500, L100.0100 ####[facility] [address] [place], [address] CO2 [Moles/Vol] 32.0 mmol/L Normal 21.0-32.0 [facility] Comment on above: Performed By: #### L 500.2500, L100.0100 ####[facility] [address], [address] Creatinine [Mass/Vol] 0.81 mg/dL Normal 0.70-1.30 [facility] Comment on above: Result Comment: The validity of the calculated GFR GFRAA in patients over 70 years has not been determined. Clinical correlation is essential. Performed By: #### L 500.2500, L100.0100 ####[facility] [address] [place], [address] EST GFR - AA 117 mL/min Normal >60 [facility] Comment on above: Result Comment: Afri can [place] GFR Calc Performed By: #### L 500.2500, L100.0100 ####[facility] [address] [place], [address] GAP 3 Low 5-15 [facility] Comment on above: Performed By: #### L 500.2500, L100.0100 ####[facility] [address] [place], [address] GFR/1.73 sq M.predicted among non-blacks MDRD (S/P/Bld) [Vol rate/Area] 97 mL/min/{1.73_m2} Normal >60 [facility] Comment on above: Result Comment: Non- GFR Calc Performed By: #### L 500.2500, L100.0100 ####[facility] [address] [place], [address] Glucose [Mass/Vol] 117 mg/dL High 74-106 [facility] Comment on above: Result Comment: Fast ing Glucose result from 100 to 125 mg/dL suggests IMPAIRED HOMEOSTASIS per A.D.A. criteria. Performed By: #### L 500.2500, L100.0100 ####[facility] [address] [place], [address] Potassium [Moles/Vol] 4.6 mmol/L Normal 3.5-5.1 [facility] Comment on above: Performed By: #### L 500.2500, L100.0100 ####[facility] [address] [place], [address] Sodium [Moles/Vol] 137 mmol/L Normal 136-145 [facility] Comment on above: Performed By: #### L 500.2500, L100.0100 ####[facility] [address] [place], [address] Urea nitrogen [Mass/Vol] 22 mg/dL High 7-18 [facility] Comment on above: Performed By: #### L 500.2500, L100.0100 ####[facility] [address] [place], [address] CBC W/Diff, Automatedon 12-3 1-2023 Absolute Lymph 0.90 X10 3/uL Normal 0.83-4.51 [facility] Comment on above: Performed By: #### L 500.2500, L100.0100 ####[facility] [address] [place], [address] Absolute Neut 12.6 X10 3/uL High 2.0-7.7 [facility] Comment on above: Performed By: #### L 500.2500, L100.0100 ####[facility] [address] [place], [address] Basophils/100 WBC (Bld) 0.7 % Normal 0-1 [facility] Comment on above: Performed By: #### L 500.2500, L100.0100 ####[facility] [address] [place], [address] Eosinophils/100 WBC (Bld) 1.4 % Normal 0-5 [facility] Comment on above: Performed By: #### L 500.2500, L100.0100 ####[facility] [address] [place], [address] Erythrocyte distribution width (RBC) [Ratio] 13.2 % Normal 11.6-14.6 [facility] Comment on above: Performed By: #### L 500.2500, L100.0100 ####[facility] [address] [place], [address] Hematocrit (Bld) [Volume fraction] 46.2 % Normal 40-54 [facility] Comment on above: Performed By: #### L 500.2500, L100.0100 ####[facility] [address] [place], [address] Hemoglobin (Bld) [Mass/Vol] 14.5 g/dL Normal 13.0-16.5 [facility] Comment on above: Performed By: #### L 500.2500, L100.0100 ####[facility] [address] [place], [address] IG% 1.200 High 0.0-0.9 [facility] Comment on above: Result Comment: IG% - Immature Granulocytes (promyelocytes, myelocytes and metamyelocytes) > 1% indicates that a LEFT SHIFT is Present. Performed By: #### L 500.2500, L100.0100 ####[facility] [address] [place], [address] Lymphocytes/100 WBC (Bld) 6.1 % Low 19-41 [facility] Comment on above: Performed By: #### L 500.2500, L100.0100 ####[facility] [address] [place], [address] MCH (RBC) [Entitic mass] 31.1 pg Normal 27.0-32.0 [facility] Comment on above: Performed By: #### L 500.2500, L100.0100 ####[facility] [address] [place], [address] MCHC (RBC) [Mass/Vol] 31.4 g/dL Low 32-36 [facility] Comment on above: Performed By: #### L 500.2500, L100.0100 ####[facility] [address] [place], [address] MCV (RBC) [Entitic vol] 99.1 fL High 80-94 [facility] Comment on above: Performed By: #### L 500.2500, L100.0100 ####[facility] [address] [place], [address] Monocytes/100 WBC (Bld) 5.0 % Normal 0-10 [facility] Comment on above: Performed By: #### L 500.2500, L100.0100 ####[facility] [address] [place], [address] Neutrophils/100 WBC (Bld) 85.6 % High 47-70 [facility] Comment on above: Performed By: #### L 500.2500, L100.0100 ####[facility] [address] [place], [address] Nucleated RBC (Bld) [#/Vol] 0 10*3/uL Normal 0-5 [facility] Comment on above: Performed By: #### L 500.2500, L100.0100 ####[facility] [address] [place], [address] Platelet mean volume (Bld) [Entitic vol] 8.7 fL Normal 6.2-12.0 [facility] Comment on above: Performed By: #### L 500.2500, L100.0100 ####[facility] [address] [place], [address] Platelets (Bld) [#/Vol] 243 10*3/uL Normal 150-450 [facility] Comment on above: Performed By: #### L 500.2500, L100.0100 ####[facility] [address] [place], [address] RBC (Bld) [#/Vol] 4.66 10*6/uL Normal 4.6-6.2 [facility] Comment on above: Performed By: #### L 500.2500, L100.0100 ####[facility] [address] [place], [address] RDW SD 47.5 fl High 35.1-43.9 [facility] Comment on above: Performed By: #### L 500.2500, L100.0100 ####[facility] [address] [place], [address] WBC (Bld) [#/Vol] 14.7 10*3/uL High 4.4-11.0 [facility] Comment on above: Performed By: #### L 500.2500, L100.0100 ####[facility] [address] [place], [address] CTA Chest W/WO Contraston CTA Chest W/WO Contrast [facility] Imaging Services [address] [place] [address] CTA Chest W/WO Contrast MR#: [id number] Acct: [id number] Name: TYLOR PEDERSEN Rep #: [id number] : 1940 M 83 From: Shayne Holt MD PCP: Dr. Shayne Zaidi MD Status: [facility] ER Study: CTA Chest W/WO Contrast Date of Exam: 02/07/24 Exam# [id number] Ordering [place]: [place] [id number] STUDY: CTA CHEST REASON FOR EXAM: Male, [...] Alpa Jeffries DO; Dr. Shayne Zaidi MD Stained Glass Artist: Signed Normal [facility] Chest 1 View (Portable)on Chest 1 View (Portable) [facility] Imaging Services [address] [place] [address] Chest 1 View (Portable) MR#: [id number] Acct: [id number] Name: TYLOR PEDERSEN Rep #: [id number] : 1940 M 83 From: Uriel Moody PCP: Dr. Shayne Zaidi MD Status: PRE ER Study: Chest 1 View (Portable) Date of Exam: 02/07/24 Exam# [id number] Ordering Dr: [place] P. [id number] INDICATION: COUGH EXAMINATION/TECHNIQUE: X-RAY - XR Chest [...] Dr. Shayne Zaidi MD; ED PHYSICIAN PROVIDER Stained Glass Artist: Signed Normal [facility] Emergency Department Summary on 02-07-2024 Emergency Department Summary [facility] Medical Records Department [address] [place] [address] Emergency Department Summary 02/07/24 MR#: [id number] Acct: [id number] Name: TYLOR PEDERSEN Rep #: [id number] : 1940 83 From: Alpa Jeffries DO [...] other complaints or concerns at this time. 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 Normal [facility] M100.678on 02-07-2024 M100.678 Pending SARS-CoV-2 (COVID 19) Negative INFLUENZA A Negative INFLUENZA B Negative RSV PCR Negative Normal [facility] Comment on above: Performed By: #### L 501.9985 #### [facility] Laboratory [address] [place], [place], [address] Urinalysis, Completeon 02-06 BACTERIA RARE Normal None Seen [facility] Comment on above: Order Comment: COLLE CTOR TO SPECIFY Performed By: #### L 500.4100, L503.7505, L300.8000, L500.4050, L100.0100, L503.0106, L506.0200, L501.5200, L501.4021, L300.3900, L501.2300, L501.9520 #### [facility] [address] [place], [place], [address] EPI,SQUAMOUS 0-5 SEEN Normal 0-5 [facility] Comment on above: Order Comment: COLLE CTOR TO SPECIFY Performed By: #### L 500.4100, L503.7505, L300.8000, L500.4050, L100.0100, L503.0106, L506.0200, L501.5200, L501.4021, L300.3900, L501.2300, L501.9520 #### [facility] [address] [place], [place], [id number] Mucus Ql (Urine sed) RARE Normal [facility] Comment on above: Order Comment: COLLE CTOR TO SPECIFY Performed By: #### L 500.4100, L503.7505, L300.8000, L500.4050, L100.0100, L503.0106, L506.0200, L501.5200, L501.4021, L300.3900, L501.2300, L501.9520 #### [facility] [address] [place], [place], [id number] WBC 5-10 SEEN Normal 0-5 [facility] Comment on above: Order Comment: COLLE CTOR TO SPECIFY Performed By: #### L 500.4100, L503.7505, L300.8000, L500.4050, L100.0100, L503.0106, L506.0200, L501.5200, L501.4021, L300.3900, L501.2300, L501.9520 #### [facility] [address] [place], [place], [address] RBC 0 SEEN Normal 0-5 [facility] Comment on above: Order Comment: COLLE CTOR TO SPECIFY Performed By: #### L 500.4100, L503.7505, L300.8000, L500.4050, L100.0100, L503.0106, L506.0200, L501.5200, L501.4021, L300.3900, L501.2300, L501.9520 #### [facility] [address] [place], [place], [phone] [facility] [facility] Telephone (ELIZABETH) TYLOR PEDERSEN ([id number]) 1940 M Date Time Provider Department 12/21/23 PADDY ZAIDI During your visit today, we recorded the following information about you: Ge Will LPN 12/21/2023 3:29 PM Signed Received annual oxygen rx from [facility]. Placed in provider's inbox for review. 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 Cerebrovascular accident (CVA) (HCC) [I63.9] 12/23/2021 [...] larynx, unspecifie*01/04/2017 Pneumonia due to Streptococcus pneumoniae ([facility])*12/18/2021 Right hemiparesis ([facility]) [G81.91] 12/23/2021 Weakness [R53.1] 06/05/2021 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 S/P angioplasty with stent [Z95.820] 12/23/2021 Encounter Status:Closed by GE WILL on 12/21/23 Normal [facility] Absolute lymphocyte countOrd ered By: Parker Metzger on 03-15-2023 Lymphocytes Auto (Unsp spec) [#/Vol] 0.80 10*3/uL 0.83-4.51 [facility] Automated lymphocyte count a s percentage of total leukocytesOrdered By: Parker Metzger on 03-15-2023 Lymphocytes/100 WBC Auto (Unsp spec) 8.8 % 19-41 [facility] Basophil percentageOrdered B y: Parker Metzger on 03-15-2023 Basophils/100 WBC (Bld) 0.7 % 0-1 [facility] Bilirubin [Mass/Vol] 0.60 mg/dL 0.20-1.00 [facility] Comment on above: For patients on eltr ombopag therapy, use of Dimension [place] TBIL is not recommended. Chloride [Moles/Vol] 107 mmol/L 98-107 [facility] Eosinophils/100 WBC (Bld) 2.1 % 0-5 [facility] Glucose [Mass/Vol] 110 mg/dL 74-106 [facility] Comment on above: Fasting Glucose resu lt from 100 to 125 mg/dL suggests IMPAIRED HOMEOSTASIS per A.D.A. criteria. Hemoglobin (Bld) [Mass/Vol] 13.1 g/dL 13.0-16.5 [facility] Lactate [Moles/Vol] 1.7 mmol/L 0.4-2.0 [facility] Monocytes/100 WBC (Bld) 6.8 % 0-10 [facility] Neutrophils (Bld) [#/Vol] 7.4 10*3/uL 2.0-7.7 [facility] Neutrophils/100 WBC (Bld) 80.9 % 47-70 [facility] Potassium [Moles/Vol] 4.0 mmol/L 3.5-5.1 [facility] Protein [Mass/Vol] 7.0 g/dL 6.4-8.2 [facility] Sodium [Moles/Vol] 137 mmol/L 136-145 [facility] WBC (Bld) [#/Vol] 9.1 10*3/uL 4.4-11.0 [facility] Determination of erythrocyte mean corpuscular volume (MCV)Ordered By: Parkeramira Metzger on 03-15-2023 MCV (RBC) [Entitic vol] 100.0 fL 80-94 [facility] Erythrocyte distribution wid th ratioOrdered By: Parkeramira Metzger on 03-15-2023 Erythrocyte distribution width (RBC) [Ratio] 13.2 % 11.6-14.6 [facility] Erythrocyte distribution wid th standard deviationOrdered By: Parkeramira Metzger on 03-15-2023 Erythrocyte distribution width (RBC) [Entitic vol] 48.4 fL 35.1-43.9 [facility] Hematocrit Auto (Bld) [Volum e fraction]Ordered By: Parkeramira Metzger on 03-15-2023 Hematocrit (Bld) [Volume fraction] 42.9 % 40-54 [facility] Immature granulocytes/100 WB C Auto (Bld)Or[facility] Immature granulocytes/100 WBC (Bld) 0.700 % 0.0-0.9 [facility] Comment on above: IG% - Immature Granu locytes (promyelocytes, myelocytes and metamyelocytes) > 1% indicates that a LEFT SHIFT is Present. Laboratory - Chemistry and C hemistry - challengeOrdered By: [facility] on 03-15-2023 Albumin/Globulin [Mass ratio] 1.0 {ratio} 0.9-2.4 [facility] ALP [Catalytic activity/Vol] 116 U/L 45-117 [facility] ALT [Catalytic activity/Vol] 20 U/L 16-61 [facility] CO2 [Moles/Vol] 28.0 mmol/L 21.0-32.0 [facility] Globulin (S) [Mass/Vol] 3.5 g/dL 2.2-4.2 [facility] Urea nitrogen/Creatinine [Mass ratio] 28.5 mg/mg 10-20 [facility] Laboratory - Hematology and Cell countsOrdered By: Parkeramira Metzger on 03-15-2023 MCH (RBC) [Entitic mass] 30.5 pg 27.0-32.0 [facility] MCHC (RBC) [Mass/Vol] 30.5 g/dL 32-36 [facility] Nucleated RBC/100 WBC (Bld) [Ratio] 0 % 0-5 [facility] Platelet mean volume (Bld) [Entitic vol] 9.9 fL 6.2-12.0 [facility] Platelets (Bld) [#/Vol] 135 10*3/uL 150-450 [facility] Laboratory - Microbiology an d Antimicrobial susceptibilityOrdered By: Parkeramira Metzger on 03-15-2023 SARS-CoV-2 (COVID-19) RNA NIURKA+probe Ql (Unsp spec) [facility] No Panel InformationOrdered By: Parker Metzger on 03-15-2023 Estimated Creatinine Clearance Calc 83.26 ml/min [facility] Estimated GFR (MDRD) Amer 131 mL/min >60 [facility] Comment on above: GFR Calc Estimated GFR (MDRD) Non-Af Amer 108 mL/min >60 [facility] Comment on above: Non- GFR Calc RBC Auto (Bld) [#/Vol]Ordere d By: Parker Metzger on 03-15-2023 RBC (Bld) [#/Vol] 4.29 10*6/uL 4.6-6.2 [facility] Serum or plasma calcium regan urement (mass/volume)Ordered By: Parker Metzger on 03-15-2023 Calcium [Mass/Vol] 8.6 mg/dL 8.5-10.1 [facility] Serum or plasma creatinine m easurement (mass/volume)Ordered By: Parker Metzger on 03-15-2023 Creatinine [Mass/Vol] 0.74 mg/dL 0.70-1.30 [facility] Comment on above: The validity of the calculated GFR & GFRAA in patients over 70 years has not been determined. Clinical correlation is essential. Serum or plasma urea nitroge n measurement (mass/volume)Ordered By: Parker Metzger on 03-15-2023 Urea nitrogen [Mass/Vol] 21 mg/dL 7-18 [facility] Thin prep Papanicolaou smear with manual screeningOrdered By: Parker Metzger on 03-15-2023 Thin prep Papanicolaou smear with manual screening 3.5 g/dL 3.2-5.0 [facility] Thin prep Papanicolaou smear with manual screening 11 U/L 15-37 [facility] Thin prep Papanicolaou smear with manual screening 2 5-15 [facility] XR Chest PA and Lateralon IMPRESSION: New atelectasis and/or early infiltrate in the right middle lobe. 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 Follow-up to document resolution Stained Glass Artist: PSCB Transcribe Date/Time: May 24 2022 1:40P Dictated by : SATISH PATEL MD This examination was interpreted and the report reviewed and electronically signed by: SATISH PATEL MD on May 24 2022 1:46PM EST [facility] XR Chest PA and LateralOrder ed By: [facility]cf Provider on 05-24-2022 [facility] Comprehensive metabolic 2000 panelon 05-22-2022 Albumin [Mass/Vol] 4.2 g/dL 3.9 - 4.9 g/dL [facility] ALP [Catalytic activity/Vol] 120 U/L High 38 - 113 U/L [facility] ALT [Catalytic activity/Vol] 9 U/L Low 10 - 54 U/L [facility] Anion gap [Moles/Vol] 12 mmol/L 9 - 18 mmol/L [facility] AST [Catalytic activity/Vol] 17 U/L 14 - 40 U/L [facility] Bilirubin [Mass/Vol] 1.1 mg/dL 0.2 - 1 .3 mg/dL [facility] Calcium [Mass/Vol] 10.0 mg/dL 8.5 - 10. 2 mg/dL [facility] Chloride [Moles/Vol] 102 mmol/L 97 - 10 5 mmol/L [facility] CO2 [Moles/Vol] 28 mmol/L 22 - 30 mmol/L [facility] Creatinine [Mass/Vol] 0.83 mg/dL 0.73 - 1.22 mg/dL [facility] Estimated Glomerular Filtration Rate 87 mL/min/1.73m >=60 mL/min/1.73m [facility] Glucose [Mass/Vol] 119 mg/dL High 74 - 99 mg/dL [facility] Potassium [Moles/Vol] 4.8 mmol/L 3.7 - 5.1 mmol/L [facility] Protein [Mass/Vol] 7.3 g/dL 6.3 - 8.0 g/dL [facility] Sodium [Moles/Vol] 142 mmol/L 136 - 144 mmol/L [facility] Urea nitrogen [Mass/Vol] 26 mg/dL High 9 - 24 mg/d L [facility] Lipid 1996 panelon Cholesterol [Mass/Vol] 115 mg/dL <200 mg/dL Cl [facility] Cholesterol in HDL [Mass/Vol] 39 mg/dL Low >39 mg/dL [facility] Cholesterol in LDL [Mass/Vol] 60 mg/dL <100 mg/dL [facility] Cholesterol in LDL/Cholesterol in HDL [Mass ratio] 1.54 {ratio} <2.54 [facility] Cholesterol in VLDL [Mass/Vol] 16 mg/dL <30 mg/dL [facility] Cholesterol non HDL [Mass/Vol] 76 mg/dL <130 mg/dL [facility] Cholesterol.total/Choles terol in HDL [Mass ratio] 2.95 {ratio} <5.10 [facility] Fasting Time 0 hrs [facility] Triglyceride [Mass/Vol] 80 mg/dL <150 mg/dL [facility] TSH BLDon 05-22-2022 TSH Qn 1.440 m[IU]/L 0.270 - 4.200 mIU/L [facility] XR Chest PA and Lateralon Radiology Study observation (narrative) [facility] CBC panel Auto (Bld)on 05-21 Erythrocyte distribution width (RBC) [Ratio] 13.4 % 11.5 - 15.0 % [facility] Hematocrit (Bld) [Volume fraction] 50.5 % 39.0 - 51.0 % [facility] Hemoglobin (Bld) [Mass/Vol] 15.9 g/dL 13.0 - 17.0 g/dL [facility] MCH (RBC) [Entitic mass] 30.3 pg 26. 0 - 34.0 pg [facility] MCHC (RBC) [Mass/Vol] 31.5 g/dL 30.5 - 36.0 g/dL [facility] MCV (RBC) [Entitic vol] 96.4 fL 80.0 - 100.0 fL [facility] Nucleated RBC (Bld) [#/Vol] <0.01 k/uL [facility] Platelet mean volume (Bld) [Entitic vol] 10.2 fL 9.0 - 12.7 fL [facility] Platelets (Bld) [#/Vol] 166 10*3/uL 150 - 400 k/uL [facility] RBC (Bld) [#/Vol] 5.24 10*6/uL 4.20 - 6.0 0 m/uL [facility] WBC (Bld) [#/Vol] 9.40 10*3/uL 3.70 - 11. 00 k/uL [facility] Absolute lymphocyte counton 12-18-2021 Lymphocytes Auto (Unsp spec) [#/Vol] 0.33 10*3/uL 0.83-4.51 [facility] Work Phone: Basophil percentageon 2021 Basophils/100 WBC (Bld) 0.1 % 0-1 [facility] Work Phone: Bilirubin [Mass/Vol] 0.50 mg/dL 0.20-1.00 [facility] Work Phone: [phone] Comment on above: For patients on eltr ombopag therapy, use of Dimension [place] TBIL is not recommended. Chloride [Moles/Vol] 101 mmol/L 98-107 [facility] Work Phone: Eosinophils/100 WBC (Bld) 0.0 % 0-5 [facility] Work Phone: Glucose [Mass/Vol] 173 mg/dL 74-106 [facility] Work Phone: [phone] Comment on above: Fasting Glucose resu lt greater than or equal to 126 mg/dL suggests DIABETES MELLITUS per A.D.A. criteria. Neutrophils (Bld) [#/Vol] 13.8 10*3/uL 2.0-7.7 [facility] Work Phone: Neutrophils/100 WBC (Bld) 92.7 % 47-70 [facility] Work Phone: Potassium [Moles/Vol] 4.1 mmol/L 3.5-5.1 [facility] Work Phone: Protein [Mass/Vol] 6.9 g/dL 6.4-8.2 [facility] Work Phone: Sodium [Moles/Vol] 138 mmol/L 136-145 [facility] Work Phone: WBC (Bld) [#/Vol] 14.9 10*3/uL 4.4-11.0 [facility] Work Phone: Blood erythrocytes count (nu mber/volume)on 12-18-2021 RBC (Bld) [#/Vol] 4.57 10*6/uL 4.6-6.2 [facility] Work Phone: Blood hemoglobin measurement (mass/volume)on 12-18-2021 Hemoglobin (Bld) [Mass/Vol] 14.3 g/dL 13.0-16.5 [facility] Work Phone: Blood lymphocytes/100 leukoc yteson 12-18-2021 Lymphocytes/100 WBC (Bld) 2.2 % 19-41 [facility] Work Phone: Blood monocytes/100 leukocyt eson 12-18-2021 Monocytes/100 WBC (Bld) 4.1 % 0-10 [facility] Work Phone: Blood platelet mean volumeon 12-18-2021 Platelet mean volume (Bld) [Entitic vol] 8.6 fL 6.2-12.0 [facility] Work Phone: Determination of erythrocyte mean corpuscular volume (MCV)on 12-18-2021 MCV (RBC) [Entitic vol] 94.1 fL 80-94 [facility] Work Phone: Hematocrit Auto (Bld) [Volum e fraction]on 12-18-2021 Hematocrit (Bld) [Volume fraction] 43.0 % 40-54 [facility] Work Phone: Laboratory - Chemistry and C hemistry - challengeon 12-18-2021 ALP [Catalytic activity/Vol] 155 U/L 45-117 [facility] Work Phone: ALT [Catalytic activity/Vol] 267 U/L 16-61 [facility] Work Phone: CO2 [Moles/Vol] 32.0 mmol/L 21.0-32.0 [facility] Work Phone: Globulin (S) [Mass/Vol] 4.3 g/dL 2.2-4.2 [facility] Work Phone: Urea nitrogen/Creatinine [Mass ratio] 60.2 mg/mg 10-20 [facility] Work Phone: Laboratory - Hematology and Cell countson 12-18-2021 Erythrocyte distribution width (RBC) [Entitic vol] 44.7 fL 35.1-43.9 [facility] Work Phone: Erythrocyte distribution width (RBC) [Ratio] 13.0 % 11.6-14.6 [facility] Work Phone: Immature granulocytes/100 WBC (Bld) 0.900 % 0.0-0.9 [facility] Work Phone: Comment on above: IG% - Immature Granu locytes (promyelocytes, myelocytes and metamyelocytes) > 1% indicates that a LEFT SHIFT is Present. MCH (RBC) [Entitic mass] 31.3 pg 27.0-32.0 [facility] Work Phone: Nucleated RBC/100 WBC (Bld) [Ratio] 0 % 0-5 [facility] Work Phone: MCHC Auto (RBC) [Mass/Vol]on 12-18-2021 MCHC (RBC) [Mass/Vol] 33.3 g/dL 32-36 [facility] Work Phone: No Panel Informationon 12-18 Estimated Creatinine Clearance Calc 60.66 ml/min [facility] Work Phone: Estimated GFR (MDRD) Amer 166 mL/min >60 [facility] Work Phone: Comment on above: GFR Calc Estimated GFR (MDRD) Non-Af Amer 138 mL/min >60 [facility] Work Phone: Comment on above: Non- GFR Calc Platelets bldon 12-18-2021 Platelets (Bld) [#/Vol] 226 10*3/uL 150-450 [facility] Work Phone: Serum or plasma albumin regan urement (mass/volume)on 12-18-2021 Albumin [Mass/Vol] 2.6 g/dL 3.2-5.0 [facility] Work Phone: Serum or plasma albumin/glob ulin mass ratioon 12-18-2021 Albumin/Globulin [Mass ratio] 0.6 {ratio} 0.9-2.4 [facility] Work Phone: Serum or plasma calcium regan urement (mass/volume)on 12-18-2021 Calcium [Mass/Vol] 8.7 mg/dL 8.5-10.1 [facility] Work Phone: Serum or plasma creatinine m easurement (mass/volume)on 12-18-2021 Creatinine [Mass/Vol] 0.60 mg/dL 0.70-1.30 [facility] Work Phone: Comment on above: The validity of the calculated GFR & GFRAA in patients over 70 years has not been determined. Clinical correlation is essential. Serum or plasma urea nitroge n measurement (mass/volume)on 12-18-2021 Urea nitrogen [Mass/Vol] 36 mg/dL 7-18 [facility] Work Phone: Thin prep Papanicolaou smear with manual screeningon 12-18-2021 Thin prep Papanicolaou smear with manual screening 138 U/L 15-37 [facility] Work Phone: Thin prep Papanicolaou smear with manual screening 5 5-15 [facility] Work Phone: Blood manual differential co mment interpretation (narrative result)on 12-15-2021 Manual differential comment Afshin (Bld) [Interp] SCANNED [facility] Work Phone: Laboratory - Chemistry and C hemistry - challengeon 12-15-2021 Natriuretic peptide B (Bld) [Mass/Vol] 163.1 pg/mL 0-100 [facility] Work Phone: No Panel Informationon 12-15 Thyroid Stimulating Hormone (TSH) 0.52 uIU/mL 0.358-3.74 [facility] Work Phone: Absolute lymphocyte counton 12-14-2021 Lymphocytes Auto (Unsp spec) [#/Vol] 0.43 10*3/uL 0.83-4.51 [facility] Work Phone: Basophil percentageon 2021 Basophils/100 WBC (Bld) 0.2 % 0-1 [facility] Work Phone: [phone] Chloride [Moles/Vol] 101 mmol/L 98-107 [facility] Work Phone: Eosinophils/100 WBC (Bld) 0.0 % 0-5 [facility] Work Phone: [phone] Glucose [Mass/Vol] 108 mg/dL 74-106 [facility] Work Phone: Comment on above: Fasting Glucose resu lt from 100 to 125 mg/dL suggests IMPAIRED HOMEOSTASIS per A.D.A. criteria. Neutrophils (Bld) [#/Vol] 14.8 10*3/uL 2.0-7.7 [facility] Work Phone: [phone] Neutrophils/100 WBC (Bld) 90.8 % 47-70 [facility] Work Phone: [phone] Potassium [Moles/Vol] 4.1 mmol/L 3.5-5.1 [facility] Work Phone: [phone] Sodium [Moles/Vol] 135 mmol/L 136-145 [facility] Work Phone: WBC (Bld) [#/Vol] 16.3 10*3/uL 4.4-11.0 [facility] Work Phone: Blood erythrocytes count (nu mber/volume)on 12-14-2021 RBC (Bld) [#/Vol] 4.32 10*6/uL 4.6-6.2 [facility] Work Phone: Blood hemoglobin measurement (mass/volume)on 12-14-2021 Hemoglobin (Bld) [Mass/Vol] 13.3 g/dL 13.0-16.5 [facility] Work Phone: [phone] Blood lymphocytes/100 leukoc yteson 12-14-2021 Lymphocytes/100 WBC (Bld) 2.6 % 19-41 [facility] Work Phone: Blood monocytes/100 leukocyt eson 12-14-2021 Monocytes/100 WBC (Bld) 5.6 % 0-10 [facility] Work Phone: Blood platelet mean volumeon 12-14-2021 Platelet mean volume (Bld) [Entitic vol] 8.8 fL 6.2-12.0 [facility] Work Phone: Determination of erythrocyte mean corpuscular volume (MCV)on 12-14-2021 MCV (RBC) [Entitic vol] 95.1 fL 80-94 [facility] Work Phone: Hematocrit Auto (Bld) [Volum e fraction]on 12-14-2021 Hematocrit (Bld) [Volume fraction] 41.1 % 40-54 [facility] Work Phone: Laboratory - Chemistry and C hemistry - challengeon 12-14-2021 CO2 [Moles/Vol] 30.0 mmol/L 21.0-32.0 [facility] Work Phone: Urea nitrogen/Creatinine [Mass ratio] 37.1 mg/mg 10-20 [facility] Work Phone: Laboratory - Hematology and Cell countson 12-14-2021 Erythrocyte distribution width (RBC) [Entitic vol] 47.7 fL 35.1-43.9 [facility] Work Phone: Erythrocyte distribution width (RBC) [Ratio] 13.5 % 11.6-14.6 [facility] Work Phone: Immature granulocytes/100 WBC (Bld) 0.800 % 0.0-0.9 [facility] Work Phone: Comment on above: IG% - Immature Granu locytes (promyelocytes, myelocytes and metamyelocytes) > 1% indicates that a LEFT SHIFT is Present. MCH (RBC) [Entitic mass] 30.8 pg 27.0-32.0 [facility] Work Phone: Nucleated RBC/100 WBC (Bld) [Ratio] 0 % 0-5 [facility] Work Phone: MCHC Auto (RBC) [Mass/Vol]on 12-14-2021 MCHC (RBC) [Mass/Vol] 32.4 g/dL 32-36 [facility] Work Phone: No Panel Informationon 12-14 Troponin I High Sensitivity 343 pg/mL 3.0-78.0 [facility] Work Phone: Comment on above: Critical Result(s) C alled at: 22:53:05 12/14/2021 by: Shena Herrera. Results read back by same. Please Note: New Test Units and Gender Specific Reference Ranges. For more information see Policy Stat Procedure [place] High Sensitivity Troponin (TNIH) and attachments. D-Dimer Quantitative (PE/DVT) 1.54 FEU/ug/m 0.27-0.49 [facility] Work Phone: Comment on above: D-Dimer ELEVATED (>0 .49): Additional studies and clinicalassessments are indicated to conclude diagnosis of:Deep Vein Thrombosis (DVT) or Pulmonary Embolism (PE)CRITICAL VALUE VERIFIED. CALLED TO ROSCOE BRIZUELA12/14/21 190 Samson Walters.RESULTS READ BACK BY SAME . Estimated Creatinine Clearance Calc 62.53 ml/min [facility] Work Phone: Estimated GFR (MDRD) Amer 95 mL/min >60 [facility] Work Phone: Comment on above: GFR Calc Estimated GFR (MDRD) Non-Af Amer 79 mL/min >60 [facility] Work Phone: Comment on above: Non- GFR Calc Troponin I High Sensitivity 522 pg/mL 3.0-78.0 [facility] Work Phone: Comment on above: Critical Result(s) C alled at: 16:42:10 12/14/2021 by: Shena Muñiz. Results read back by same. Please Note: New Test Units and Gender Specific Reference Ranges. For more information see Policy Stat Procedure [place] High Sensitivity Troponin (TNIH) and attachments. Platelets bldon 12-14-2021 Platelets (Bld) [#/Vol] 199 10*3/uL 150-450 [facility] Work Phone: Serum or plasma calcium regan urement (mass/volume)on 12-14-2021 Calcium [Mass/Vol] 9.2 mg/dL 8.5-10.1 [facility] Work Phone: Serum or plasma creatinine m easurement (mass/volume)on 12-14-2021 Creatinine [Mass/Vol] 0.97 mg/dL 0.70-1.30 [facility] Work Phone: Comment on above: The validity of the calculated GFR & GFRAA in patients over 70 years has not been determined. Clinical correlation is essential. Serum or plasma urea nitroge n measurement (mass/volume)on 12-14-2021 Urea nitrogen [Mass/Vol] 36 mg/dL 7-18 [facility] Work Phone: Thin prep Papanicolaou smear with manual screeningon 12-14-2021 Thin prep Papanicolaou smear with manual screening 4 5-15 [facility] Work Phone: NM CARDIAC PERF STRESS/PHARM on 06-19-2018 NM CARDIAC PERF STRESS/PHARM * * *Final Report* * * DATE OF EXAM: Jun 19 2018 11:56AM JAZMIN 0006 - NM CARDIAC PERF STRESS/PHARM / PROCEDURE REASON: multiple diagnoses * * * * Physician Interpretation * * * * PATIENT: Name: TYLOR PEDERSEN Age: 77 years Gender: M CONCLUSIONS: [...] 60 minutes later. See administered doses below. [facility] Date of service: 06/19/2018 9:36:42 AM Ordering Physician: Shayne Cedeño Requesting Physician: Indication: Assessment for known CAD. Interpreting physician: Rosalino Murray DO Patient History: History of hypertension, dyslipidemia, coronary heart disease and Prior smoker. Medications currently taking are diuretic, anti-depressants, B-karis, statins, ASA, Ca Karis and plavix. Previous Cardiovascular Interventions: CABG (1992 x2) Height: 180.34 cm BSA: 2.15 m? [...] normal sinus rhythm. Stress complications: none. Final Stained Glass Artist: LAURA Transcribe Date/Time: Jun 19 2018 9:36A Dictated by : ROSALINO MURRAY DO This examination was interpreted and the report reviewed and electronically signed by: ROSALINO MURRAY DO on Jun 19 2018 4:55PM EST [id number] Normal [facility] NUCLEAR STRESS LEXISCAN (CAR D)on 06-19-2018 NUCLEAR STRESS LEXISCAN (CARD) NAME : TYLOR PEDERSEN PID : [id number] : 1940 Gender : Male Race : ORD : [id number] Procedure Date : Jun 19 2018 10:44:58 Edit Date : Jun 22 2018 10:58:35 Conclusions:PLEASE REFER TO IMAGING SECTION IN EPIC FOR COMPLETE INTERPRETATION OF STRESS TEST AND MYOCARDIAL PERFUSION IMAGING Protocol Name : LEXISCAN Time In Exercise Phase : 00:06:00 Max. Systolic BP : 197 mmHg Max Diastolic BP : 60 mmHg Max Heart Rate : 71 BPM Max Predicted Heart Rate : 142 BPM Recovery ECG Response (OLD) : Reason For Termination : End of Protocol Test Reason : Pre-Op Evaluation Location :[facility] Overread By : ROSALINO MURRAY D.O. Edited By : Shraddha Cha Referred By : SHAYNE CEDEÑO Acquired by : Shraddha Cha [facility] 06-16-2018 CNPN Telephone (CDLBME) PEDERSEN,JOHN Rukhsana ([id number]) 1940 M Date Time Provider Department 06/16/18 [...] Fully Assessed Reason for Visit: Reminder Call [2316] Prescriptions as of 06/16/2018 Sig: POTASSIUM CHLORIDE [...] Encounter Status:Closed by NATALIA LIZ on 06/16/18 [facility] COVID-19 virus antigen assay SARS-CoV-2 (COVID-19) Ag IA.rapid Ql (Resp) [facility] Work Phone: Legionella pneumophila ag Legionella Antigen Legionella Antigen [facility] Work Phone: No Panel Information Streptococcus pneumoniae Antigen (M [facility] Work Phone: Vital Signs Date Time Vital Sign Value Performing Clinician Facility 09-25-2024 11:09-0400 Body height 177.8 cm Paddy Zaidi MD Work Phone: [facility] 09-25-2024 11:09-0400 Diastolic blood pressure 71 mm[Hg] Paddy Zaidi MD Work Phone: [facility] 09-25-2024 11:09-0400 Heart rate 99 /min Paddy Zaidi MD Work Phone: [facility] 09-25-2024 11:09-0400 SaO2% (BldA) [Mass fraction] 99 % Paddy Zaidi MD Work Phone: [facility] 09-25-2024 11:09-0400 Systolic blood pressure 110 mm[Hg] Paddy Zaidi MD Work Phone: [facility] 09-19-2024 09:21-0400 Body temperature 98.5 [degF] Dr. Shayne Zaidi MD Work Phone: [facility] 09-19-2024 09:21-0400 Diastolic blood pressure 62 mm[Hg] Dr. Shayne Zaidi MD Work Phone: [facility] 09-19-2024 09:21-0400 Heart rate 103 /min Dr. Shayne Zaidi MD Work Phone: [facility] 09-19-2024 09:21-0400 Inhaled oxygen flow rate 3 L/min Dr. Shayne Zaidi MD Work Phone: [facility] 09-19-2024 09:21-0400 Respiratory rate 16 /min Dr. Shayne Zaidi MD Work Phone: [facility] 09-19-2024 09:21-0400 SaO2% (BldA) [Mass fraction] 98 % Dr. Shayne Zaidi MD Work Phone: [facility] 09-19-2024 09:21-0400 Systolic blood pressure 108 mm[Hg] Dr. Shayne Zaidi MD Work Phone: [facility] 09-19-2024 03:23-0400 Body mass index (BMI) [Ratio] 28.3 kg/m2 Dr. Shayne Zaidi MD Work Phone: [facility] 09-19-2024 03:23-0400 Body weight [address] Shayne Zaidi MD Work Phone: [facility] 09-17-2024 12:46-0400 Body height 180.[address] Shayne Zaidi MD Work Phone: [facility] 09-16-2024 21:00-0400 Body temperature 98.3 [degF] Dr. Shayne Zaidi MD Work Phone: [facility] 09-16-2024 21:00-0400 Diastolic blood pressure 72 mm[Hg] Dr. Shayne Zaidi MD Work Phone: [facility] 09-16-2024 21:00-0400 Heart rate 100 /min Dr. Shayne Zaidi MD Work Phone: [facility] 09-16-2024 21:00-0400 Respiratory rate 20 /min Dr. Shayne Zaidi MD Work Phone: [facility] 09-16-2024 21:00-0400 SaO2% (BldA) [Mass fraction] 98 % Dr. Shayne Zaidi MD Work Phone: [facility] 09-16-2024 21:00-0400 Systolic blood pressure 149 mm[Hg] Dr. Shayne Zaidi MD Work Phone: [facility] 09-16-2024 18:31-0400 Inhaled oxygen flow rate 2 L/min Dr. Shayne Zaidi MD Work Phone: [facility] 09-16-2024 18:21-0400 Body height 180.[address] Shayne Zaidi MD Work Phone: [facility] 09-16-2024 18:21-0400 Body mass index (BMI) [Ratio] 30 kg/m2 Dr. Shayne Zaidi MD Work Phone: [facility] 09-16-2024 18:21-0400 Body weight 97.[address] Shayne Zaidi MD Work Phone: [facility] 09-12-2024 15:56-0400 Body temperature 97.8 [degF] Dr. Shayne Zaidi MD Work Phone: [facility] 09-12-2024 15:56-0400 Diastolic blood pressure 86 mm[Hg] Dr. Shayne Zaidi MD Work Phone: [facility] 09-12-2024 15:56-0400 Heart rate 102 /min Dr. Shayne Zaidi MD Work Phone: [facility] 09-12-2024 15:56-0400 Inhaled oxygen flow rate 3 L/min Dr. Shayne Zaidi MD Work Phone: [facility] 09-12-2024 15:56-0400 Respiratory rate 18 /min Dr. Shayne Zaidi MD Work Phone: [facility] 09-12-2024 15:56-0400 SaO2% (BldA) [Mass fraction] 96 % Dr. Shayne Zaidi MD Work Phone: [facility] 09-12-2024 15:56-0400 Systolic blood pressure 142 mm[Hg] Dr. Shayne Zaidi MD Work Phone: [facility] 09-12-2024 06:00-0400 Body mass index (BMI) [Ratio] 28.1 kg/m2 Dr. Shayne Zaidi MD Work Phone: [facility] 09-12-2024 06:00-0400 Body weight 91.[address] Shayne Zaidi MD Work Phone: [facility] 09-10-2024 14:33-0400 Body height 180.[address] Shayne Zaidi MD Work Phone: [facility] 07-13-2024 16:53-0400 Diastolic blood pressure 76 mm[Hg] Paddy Zaidi MD Work Phone: [facility] 07-13-2024 16:53-0400 Heart rate 98 /min Paddy Zaidi MD Work Phone: [facility] 07-13-2024 16:53-0400 Systolic blood pressure 125 mm[Hg] Paddy Zaidi MD Work Phone: [facility] 03-27-2024 13:52-0500 Diastolic blood pressure 80 mm[Hg] Trey Smith APRN.CNP Work Phone: [facility] 03-27-2024 13:52-0500 Heart rate 90 /min Trey Click 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.GRANTS ASSISTANT Work Phone: [facility] 03-27-2024 13:52-0500 Respiratory rate 18 /min Trey Click 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.GRANTS ASSISTANT Work Phone: [facility] 03-27-2024 13:52-0500 SaO2% (BldA) [Mass fraction] 95 % Trey Click 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.GRANTS ASSISTANT Work Phone: [facility] 03-27-2024 13:52-0500 Systolic blood pressure 122 mm[Hg] Trey Click 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.GRANTS ASSISTANT Work Phone: [facility] 03-27-2024 13:47-0500 Heart rate 107 /min Pulm Wstr Work Phone: [facility] 03-27-2024 13:47-0500 SaO2% (BldA) [Mass fraction] 96 % Pulm Wstr Work Phone: [facility] Comment on above: RA resting 03-05-2024 15:07-0500 Body height 171.5 cm Burton Huynh MD Work Phone: [facility] 03-05-2024 15:07-0500 Body mass index (BMI) [Ratio] 32.69 kg/m2 Burton Huynh MD Work Phone: [facility] 03-05-2024 15:07-0500 Body weight 96.16 kg Burton Huynh MD Work Phone: [facility] 03-05-2024 15:07-0500 Diastolic blood pressure 68 mm[Hg] Burton Huynh MD Work Phone: [facility] 03-05-2024 15:07-0500 Heart rate 112 /min Burton Huynh MD Work Phone: [facility] 03-05-2024 15:07-0500 Respiratory rate 14 /min Burton Huynh MD Work Phone: [facility] 03-05-2024 15:07-0500 SaO2% (BldA) [Mass fraction] 96 % Burton Huynh MD Work Phone: [facility] 03-05-2024 15:07-0500 Systolic blood pressure 122 mm[Hg] Burton Huynh MD Work Phone: [facility] 03-05-2024 14:42-0500 Body height 171.5 cm Pulm Wstr Work Phone: [facility] 03-05-2024 14:42-0500 Body mass index (BMI) [Ratio] 32.69 kg/m2 Pulm Wstr Work Phone: [facility] 03-05-2024 14:42-0500 Body weight 96.16 kg Pulm Wstr Work Phone: [facility] 03-05-2024 14:42-0500 Heart rate 112 /min Pulm Wstr Work Phone: [facility] 03-05-2024 14:42-0500 Respiratory rate 14 /min Pulm Wstr Work Phone: [facility] 03-05-2024 14:42-0500 SaO2% (BldA) [Mass fraction] 96 % Pulm Wstr Work Phone: [facility] Comment on above: 2L pulse dose 02-14-2024 14:06-0500 Diastolic blood pressure 78 mm[Hg] Hever Tanya 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.GRANTS ASSISTANT Work Phone: [facility] 02-14-2024 14:06-0500 Heart rate 96 /min Hever Tanya 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.GRANTS ASSISTANT Work Phone: [facility] 02-14-2024 14:06-0500 Systolic blood pressure 132 mm[Hg] Hever Tanya 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.GRANTS ASSISTANT Work Phone: [facility] 06-07-2023 16:30-0400 Body height 180.3 cm Paddy Zaidi MD Work Phone: [facility] 06-07-2023 16:30-0400 Body mass index (BMI) [Ratio] 30.15 kg/m2 Paddy Zaidi MD Work Phone: [facility] 06-07-2023 16:30-0400 Body weight 98 kg Paddy Zaidi MD Work Phone: [facility] 06-07-2023 16:30-0400 Diastolic blood pressure 80 mm[Hg] Paddy Zaidi MD Work Phone: [facility] 06-07-2023 16:30-0400 Heart rate 82 /min Paddy Zaidi MD Work Phone: [facility] 06-07-2023 16:30-0400 SaO2% (BldA) [Mass fraction] 95 % Paddy Zaidi MD Work Phone: [facility] 06-07-2023 16:30-0400 Systolic blood pressure 138 mm[Hg] Paddy Zaidi MD Work Phone: [facility] 03-15-2023 15:52-0500 Diastolic blood pressure 100 mm[Hg] [facility] 03-15-2023 15:52-0500 Heart rate 106 /min [facility] 03-15-2023 15:52-0500 Respiratory rate 22 /min [facility] 03-15-2023 15:52-0500 SaO2% (BldA) [Mass fraction] 95 % [facility] 03-15-2023 15:52-0500 Systolic blood pressure 159 mm[Hg] [facility] 03-15-2023 14:10-0500 Body mass index (BMI) [Ratio] 29.9 kg/m2 [facility] 03-15-2023 14:10-0500 Body weight 97.4 kg [facility] 03-15-2023 13:17-0500 Body height 180.34 cm [facility] 03-15-2023 13:17-0500 Body temperature 98.5 [degF] [facility] 09-22-2022 22:00-0400 Body mass index (BMI) [Ratio] 27.9 kg/m2 [facility] 09-22-2022 22:00-0400 Body weight 91 kg [facility] 09-22-2022 21:47-0400 Heart rate 69 /min [facility] 09-22-2022 21:47-0400 Respiratory rate 16 /min [facility] 09-22-2022 21:47-0400 SaO2% (BldA) [Mass fraction] 97 % [facility] 09-22-2022 18:34-0400 Body height 180.34 cm [facility] 09-22-2022 18:34-0400 Body temperature 97.3 [degF] [facility] 09-22-2022 18:34-0400 Diastolic blood pressure 65 mm[Hg] [facility] 09-22-2022 18:34-0400 Systolic blood pressure 149 mm[Hg] [facility] 06-02-2022 12:58-0400 Body height 180.3 cm Hever Pamela 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.GRANTS ASSISTANT Work Phone: [facility] 06-02-2022 12:58-0400 Body weight 92.99 kg Hever Pamela 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.GRANTS ASSISTANT Work Phone: [facility] 06-02-2022 12:58-0400 Diastolic blood pressure 68 mm[Hg] Hever Pamela 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.GRANTS ASSISTANT Work Phone: [facility] 06-02-2022 12:58-0400 Heart rate 84 /min Hever Pamela 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.GRANTS ASSISTANT Work Phone: [facility] 06-02-2022 12:58-0400 SaO2% (BldA) [Mass fraction] 97 % Hever Pamela 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.GRANTS ASSISTANT Work Phone: [facility] 06-02-2022 12:58-0400 Systolic blood pressure 134 mm[Hg] Hever Pamela 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.GRANTS ASSISTANT Work Phone: [facility] 05-21-2022 16:12-0400 Body height 180.3 cm Paddy Zaidi MD Work Phone: [facility] 05-21-2022 16:12-0400 Body temperature 98.4 [degF] Paddy Zaidi MD Work Phone: [facility] 05-21-2022 16:12-0400 Body weight 88.22 kg Paddy Zaidi MD Work Phone: [facility] 05-21-2022 16:12-0400 Diastolic blood pressure 83 mm[Hg] Padyd Zaidi MD Work Phone: [facility] 05-21-2022 16:12-0400 Heart rate 71 /min Paddy Zaidi MD Work Phone: [facility] 05-21-2022 16:12-0400 Respiratory rate 16 /min Paddy Zaidi MD Work Phone: [facility] 05-21-2022 16:12-0400 SaO2% (BldA) [Mass fraction] 93 % Paddy Zaidi MD Work Phone: [facility] 05-21-2022 16:12-0400 Systolic blood pressure 137 mm[Hg] Paddy Zaidi MD Work Phone: [facility] 12-28-2021 09:17-0500 Body mass index (BMI) [Ratio] 27.8 kg/m2 Dr. Shayne Zaidi Work Phone: [facility] Work Phone: 12-28-2021 09:17-0500 Body temperature 97 [degF] Dr. Shayne Zaidi Work Phone: [facility] Work Phone: 12-28-2021 09:17-0500 Body weight 90.[address] Shayne Zaidi Work Phone: [facility] Work Phone: 12-28-2021 09:17-0500 Diastolic blood pressure 76 mm[Hg] Dr. Shayne Zaidi Work Phone: [facility] Work Phone: 12-28-2021 09:17-0500 Heart rate 72 /min Dr. Shayne Zaidi Work Phone: [facility] Work Phone: 12-28-2021 09:17-0500 Respiratory rate 18 /min Dr. Shayne Zaidi Work Phone: [facility] Work Phone: 12-28-2021 09:17-0500 SaO2% (BldA) [Mass fraction] 94 % Dr. Shayne Zaidi Work Phone: [facility] Work Phone: 12-28-2021 09:17-0500 Systolic blood pressure 140 mm[Hg] Dr. Shayne Zaidi Work Phone: [facility] Work Phone: 12-23-2021 11:19-0500 Body height 180.3 cm Paddy Zaidi MD Work Phone: [facility] 12-23-2021 11:19-0500 Body temperature 98.4 [degF] Paddy Zaidi MD Work Phone: [facility] 12-23-2021 11:19-0500 Body weight 87.09 kg Paddy Zaidi MD Work Phone: [facility] 12-23-2021 11:19-0500 Diastolic blood pressure 54 mm[Hg] Paddy Zaidi MD Work Phone: [facility] 12-23-2021 11:19-0500 Heart rate 87 /min Paddy Zaidi MD Work Phone: [facility] 12-23-2021 11:19-0500 SaO2% (BldA) [Mass fraction] 87 % Paddy Zaidi MD Work Phone: [facility] 12-23-2021 11:19-0500 Systolic blood pressure 91 mm[Hg] Paddy Zaidi MD Work Phone: [facility] 12-18-2021 15:00-0500 Heart rate 95 /min Dr. Shayne Zaidi Work Phone: [facility] Work Phone: 12-18-2021 14:55-0500 Body temperature 97.5 [degF] Dr. Shayne Zaidi Work Phone: [facility] Work Phone: 12-18-2021 14:55-0500 Diastolic blood pressure 88 mm[Hg] Dr. Shayne Zaidi Work Phone: [facility] Work Phone: 12-18-2021 14:55-0500 Inhaled oxygen flow rate 2 L/min Dr. Shayne Zaidi Work Phone: [facility] Work Phone: 12-18-2021 14:55-0500 Respiratory rate 16 /min Dr. Shayne Zaidi Work Phone: [facility] Work Phone: 12-18-2021 14:55-0500 SaO2% (BldA) [Mass fraction] 96 % Dr. Shayne Zaidi Work Phone: [facility] Work Phone: 12-18-2021 14:55-0500 Systolic blood pressure 128 mm[Hg] Dr. Shayne Zaidi Work Phone: [facility] Work Phone: 12-16-2021 15:05-0500 Body height 180.[address] Shayne Zaidi Work Phone: [facility] Work Phone: 12-16-2021 15:05-0500 Body weight 88.[address] Shayne Zaidi Work Phone: [facility] Work Phone: 12-14-2021 18:22-0500 Body mass index (BMI) [Ratio] 27.1 kg/m2 Dr. Shayne Zaidi Work Phone: [facility] Work Phone: 12-14-2021 17:51-0500 Diastolic blood pressure 84 mm[Hg] Dr. Shayne Zaidi Work Phone: [facility] Work Phone: 12-14-2021 17:51-0500 Heart rate 101 /min Dr. Shayne Zaidi Work Phone: [facility] Work Phone: 12-14-2021 17:51-0500 Inhaled oxygen flow rate 2 L/min Dr. Shayne Zaidi Work Phone: [facility] Work Phone: 12-14-2021 17:51-0500 Respiratory rate 28 /min Dr. Shayne Zaidi Work Phone: [facility] Work Phone: 12-14-2021 17:51-0500 SaO2% (BldA) [Mass fraction] 93 % Dr. Shayne Zaidi Work Phone: [facility] Work Phone: 12-14-2021 17:51-0500 Systolic blood pressure 142 mm[Hg] Dr. Shayne Zaidi Work Phone: [facility] Work Phone: 12-14-2021 17:05-0500 Body temperature 98.1 [degF] Dr. Shayne Zaidi Work Phone: [facility] Work Phone: 12-14-2021 15:17-0500 Body height 180.[address] Shayne Zaidi Work Phone: [facility] Work Phone: 12-14-2021 15:17-0500 Body mass index (BMI) [Ratio] 28.3 kg/m2 Dr. Shayne Zaidi Work Phone: [facility] Work Phone: 12-14-2021 15:17-0500 Body weight 92.[address] Shayne Zaidi Work Phone: [facility] Work Phone: 06-22-2021 13:25-0400 Diastolic blood pressure 80 mm[Hg] Hever Pamela 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.GRANTS ASSISTANT Work Phone: [facility] 06-22-2021 13:25-0400 Systolic blood pressure 138 mm[Hg] Hever Pamela 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.GRANTS ASSISTANT Work Phone: [facility] 06-22-2021 12:58-0400 Body height 180.3 cm Hever Pamela 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.GRANTS ASSISTANT Work Phone: [facility] 06-22-2021 12:58-0400 Body weight 88.36 kg Hever Pamela 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.GRANTS ASSISTANT Work Phone: [facility] 06-22-2021 12:58-0400 Heart rate 65 /min Hever Pamela 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.GRANTS ASSISTANT Work Phone: [facility] Encounters Encounter Date Encounter Type Care Provider Facility Start: 09-25-2024 End: 09-25-2024 Office outpatient visit 40 minutes Paddy Zaidi MD Work Phone: [facility] Comment on above: 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) (Primary Dx); Adjustment disorder with mixed anxiety and depressed mood; Atrial fibrillation with RVR (HCC); Aspiration pneumonia, unspecified aspiration pneumonia type, unspecified laterality, unspecified part of lung (HCC); Anxiety attack; Hypokalemia; detention current use of anticoagulant therapy Start: 09-25-2024 End: 09-25-2024 ambulatory PADDY ZAIDI Facility:[facility] Start: 09-20-2024 End: 09-20-2024 Telephone encounter Paddy Zaidi MD Work Phone: Family Practice Comment on above: Received Outside Med [facility] Records ([facility] Discharge summary 09/19/2024 Encephalopathy ) Start: 09-19-2024 ambulatory Shayne Zaidi Facility :[facility] Start: 09-19-2024 Non-patient / Non-visit Dr. Trevor Burton MD -[facility] Work Phone: Start: 09-18-2024 End: 09-18-2024 Telephone encounter Paddy Zaidi MD Work Phone: [facility] Comment on above: Received Outside Med ical Records ([facility] Neuro consult) Start: 09-18-2024 Non-patient / Non-visit Dr. Trevor Burton MD -[facility] Work Phone: Start: 09-17-2024 End: 09-17-2024 Telephone encounter Paddy Zaidi MD Work Phone: [facility] Comment on above: Received Outside Med ical Records ([facility] ED summary) Start: 09-17-2024 Non-patient / Non-visit Dr. Trevor Burton MD -[facility] Work Phone: Start: 09-16-2024 End: 09-19-2024 ambulatory Olivia Walters Facility:[facility] Start: 09-16-2024 End: 09-19-2024 Evaluation and management of inpatient Dr. Olivia Walters MD -[facility] Work Phone: Start: 09-16-2024 End: 09-19-[address] Shayne Zaidi MD Work Phone: -[facility] Unit Start: 09-12-2024 Non-patient / Non-visit Dr. Aayush Mills DO [facility] Work Phone: Start: 09-11-2024 Non-patient / Non-visit Dr. Aayuhs Mills [facility] Work Phone: Start: 09-11-2024 Non-patient / Non-[facility] Start: 09-10-2024 End: 09-10-2024 ambulatory Sera Kline RN [facility] Comment on above: MURIEL BENITES RN ( ED Utilization review per request of payor - [facility]) Start: 09-10-2024 Non-patient / Non-visit Dr. Haynes Of rudy JONESYolandaSilvia Start: 09-10-2024 ambulatory Shayne Zaidi Facility :[facility] Start: 09-10-2024 End: 09-12-2024 Evaluation and management of inpatient Dr. Aayush Sibley DO -Progressive Care Unit Work Phone: Start: 09-09-2024 End: 09-09-2024 Emergency department patient visit TYLOR NG Facility:[facility] Start: 09-08-2024 End: 09-08-2024 ambulatory Yudelka Harris RN NURSE CONSTRUCTION TECH Comment on above: Patient Update Start: 09-05-2024 End: 09-05-2024 Telephone encounter Sudha Noe MD Work Phone: Cardiology Comment on above: Appointment Start: 08-14-2024 End: 08-14-2024 Refill Paddy Zaidi MD Work Phone: [facility] Comment on above: Refill Request Start: 07-23-2024 End: 07-23-2024 Refill Hever Martínez APRN.GRANTS ASSISTANT Work Phone: [facility] Comment on above: Refill Request Start: 07-13-2024 End: 07-13-2024 ambulatory PADDY ZAIDI Facility:[facility] Start: 07-13-2024 End: 07-13-2024 Office outpatient visit 25 minutes Paddy Zaidi MD Work Phone: [facility] Comment on above: Oxygen dependent (Pr imary Dx); Atherosclerotic cardiovascular disease; Anxiety attack; Leg swelling; Adjustment disorder with mixed anxiety and depressed mood; PAD (peripheral artery disease); Acquired hypothyroidism; Pure hypercholesterolemia; Idiopathic peripheral neuropathy; 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 Comment on above: Results Start: 06-29-2024 End: 06-29-2024 ambulatory TREY SMITH Facility:[facility] Start: 06-18-2024 End: 06-18-2024 ambulatory Matthew Stallworth RN Work Phone: [facility] Comment on above: Population Health Na vigation Outreach ([employer] ) Start: 06-16-2024 End: 06-19-2024 Refill Hever Martínez APRN.GRANTS ASSISTANT Work Phone: [facility] Comment on above: Refill Request Start: 04-26-2024 End: 04-26-2024 ambulatory Cassandra Ferreira MA [facility] [place] Start: 04-26-2024 End: 04-26-2024 Patient encounter procedure Cassandra Ferreira MA [facility] [employer] [place] Comment on above: Population Health Na vigation Outreach ([employer] High Risk - Attempt 2) Start: 04-08-2024 End: 04-09-2024 Refill Hever Martínez APRN.GRANTS ASSISTANT Work Phone: [facility] Comment on above: Refill Request Start: 03-27-2024 End: 03-27-2024 ambulatory BURTON HUYNH Facility:[facility] Start: 03-27-2024 End: 03-27-2024 Office outpatient visit 25 minutes Trey Smith 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.GRANTS ASSISTANT Work Phone: Pulmonary Medicine Comment on above: 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) (Primary Dx); Hypoxia; Pneumonia of left lower lobe due to infectious organism; Lung nodules Start: 03-27-2024 End: 03-27-2024 ambulatory Pulm Lab [facility] Work Phone: [facility] Comment on above: Spirometry Start: 03-27-2024 End: 03-27-2024 Patient encounter procedure [facility] Work Phone: [facility] Start: 03-27-2024 End: 03-27-2024 Subsequent hospital visit by physician [facility] ([facility]-Stat) Work Phone: Cat Scan Comment on above: Pneumonia of left lo wer lobe due to infectious organism [J18.9] Start: 03-21-2024 End: 03-21-2024 Refill Paddy Zaidi MD Work Phone: [facility] Comment on above: Refill Request Appointment Start: 03-20-2024 End: 03-20-2024 ambulatory Elenita Lehmanleslie MOY [facility] [place] Start: 03-20-2024 End: 03-20-2024 Patient encounter procedure Elenita Dey MA [facility] Comment on above: Population Health Na vigation Outreach ([employer] High Risk Attempt #1 ) Start: 03-19-2024 ambulatory BURTON HUYNH Fac ility:[facility] Start: 03-11-2024 End: 03-13-2024 Refill Paddy Zaidi MD Work Phone: [facility] Comment on above: Refill Request Start: 03-06-2024 End: 03-21-2024 Telephone encounter Burton Huynh MD Work Phone: Pulmonary Medicine Comment on above: Anticoagulation Start: 03-05-2024 End: 03-05-2024 [facility] Work [facility]: [facility] Comment on above: Spirometry Start: 03-05-2024 End: 03-05-2024 Patient encounter [facility] Work Phone: [facility] Comment on above: 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) (Primary Dx); Pneumonia of left lower lobe due to infectious organism; Lung nodules; Former smoker; Chronic hypoxemic respiratory failure (HCC) Start: 03-02-2024 End: 03-02-2024 ambulatory PADDY ZAIDI Facility:[facility] Start: 02-15-2024 End: 02-16-2024 Telephone encounter Paddy Zaidi MD Work Phone: Family Practice Comment on above: Medication Problem Start: 02-14-2024 End: 02-14-2024 ambulatory HEVER MARTÍNEZ Facility:[facility] Start: 02-14-2024 End: 02-14-2024 Office outpatient visit 25 minutes Hever Martínez 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.GRANTS ASSISTANT Work Phone: [facility] Comment on above: Pneumonia of right l ower lobe due to infectious organism (Primary Dx); Chronic obstructive pulmonary disease, unspecified COPD type (HCC); Adjustment disorder with mixed anxiety and depressed mood; Paroxysmal atrial fibrillation (HCC); Encounter for immunization Start: 02-14-2024 End: 02-14-2024 Telephone encounter Hever Martínez APRN.GRANTS ASSISTANT Work Phone: [facility] Comment on above: Appointment Refill Request Start: 02-13-2024 End: 02-13-2024 Telephone encounter Paddy Zaidi MD Work Phone: [facility] Comment on above: [facility] ED) Start: 02-07-2024 End: 02-07-2024 Emergency department patient visit Shayne Zaidi Facility:[facility] Start: 12-30-2023 End: 01-02-2024 Refill Paddy Zaidi MD Work Phone: [facility] Comment on above: Refill Request Start: 12-21-2023 End: 12-21-2023 Telephone encounter Paddy Zaidi MD Work Phone: [facility] Comment on above: Orders ([employer] annual oxygen rx) Start: 12-01-2023 End: 12-01-2023 Refill Paddy Zaidi MD Work Phone: [facility] Comment on above: Refill Request Start: 11-28-2023 End: 11-29-2023 Refill Paddy Zaidi MD Work Phone: [facility] Comment on above: Refill Request Start: 09-02-2023 ambulatory Sarah Robison RN Work Phone: [facility] Start: 08-25-2023 ambulatory Corrina GAN [facility] [facility] Start: 08-25-2023 Home visit Corrina Vale [facility] Comment on above: Population Health Na vigation Outreach ([employer] Attributed Member- Needs 2023 Medicare Wellness Appt Scheduled/) Start: 08-03-2023 ambulatory [facility] Dey [facility] [place] Start: 08-03-2023 Patient encounter procedure Elenita Dey MA [facility] Comment on above: Population Health Na vigation Outreach ([employer] AWV/HCC and care gaps /) Start: 07-11-2023 Refill Paddy quintana MD Work Phone: [facility] Comment on above: Refill Request Medication Request Start: 06-13-2023 Telephone encounter Paddy Zaidi MD Work Phone: [facility] Comment on above: Results (Labs ) Start: 06-07-2023 End: 06-07-2023 Patient encounter procedure Paddy Zaidi MD Work Phone: [facility] Comment on above: 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) (Primary Dx); Hypothyroidism, unspecified type; Essential hypertension; Mixed hyperlipidemia; Peripheral polyneuropathy; SOB (shortness of breath); Hypoxemia Start: 05-27-2023 Refill Paddy quintana MD Work Phone: [facility] Comment on above: Refill Request Start: 04-15-2023 ambulatory Corrina Barakat [facility] Comment on above: Population Health Na vigation Outreach ([employer] HCCs 2.16.24) Start: 04-08-2023 Refill Paddy quintana MD Work Phone: [facility] Comment on above: Refill Request Start: 03-18-2023 Telephone encounter Paddy Zaidi MD Work Phone: [facility] Comment on above: Received Outside Med ical Records ([facility] ED 03/15/23) Start: 03-15-2023 End: 03-15-2023 Emergency department patient visit [facility]-Emergency Department Work Phone: Start: 12-28-2022 Telephone encounter Paddy Zaidi MD Work Phone: [facility] Comment on above: Orders ([employer] annual oxygen prescription renewal ) Start: 09-23-2022 Telephone encounter Paddy Zaidi MD Work Phone: [facility] Comment on above: Received Outside Med [facility] Records ([facility] 09/22/22) Start: 09-22-2022 End: 09-22-2022 Emergency department patient visit [facility]-Emergency Department Work Phone: Start: 08-20-2022 Telephone encounter Paddy Zaidi MD Work Phone: [facility] Comment on above: Patient Question Start: 06-22-2022 Telephone encounter Hever page 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.GRANTS ASSISTANT Work Phone: [facility] Comment on above: Orders Start: 06-02-2022 End: 06-02-2022 Office outpatient visit 15 minutes Hever Santiago 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.GRANTS ASSISTANT Work Phone: [facility] Comment on above: Pneumonia of right m iddle lobe due to infectious organism (Primary Dx); ED (erectile dysfunction) of organic origin; Adjustment disorder with mixed anxiety and depressed mood Start: 05-25-2022 ambulatory Hever Arce PRN.GRANTS ASSISTANT Work Phone: [facility] Comment on above: Results Start: 05-22-2022 End: 05-22-2022 Subsequent hospital visit by physician Xr [facility] Work Phone: Radiology Comment on above: Coronary artery dise ase involving siletz tribe coronary artery of siletz tribe heart with angina pectoris (HCC) [I25.119] Start: 05-21-2022 End: 05-21-2022 Patient encounter procedure Paddy Zaidi MD Work Phone: [facility] Comment on above: Coronary artery dise ase involving siletz tribe coronary artery of siletz tribe heart with angina pectoris (HCC) (Primary Dx); Essential hypertension; Hypokalemia; Peripheral polyneuropathy; Acquired hypothyroidism; Anxiety; Paroxysmal atrial fibrillation (HCC); SOB (shortness of breath); Mixed hyperlipidemia; Hypothyroidism, unspecified type; Chronic obstructive pulmonary disease, unspecified COPD type ([facility]) Start: 05-14-2022 Telephone encounter Paddy Zaidi MD Work Phone: Family Practice Comment on above: Medication Problem Start: 04-27-2022 ambulatory Cassandra Hood [facility] Comment on above: Population Health Na vigation Outreach (HCC) Start: 03-30-2022 ambulatory Paddy quintana MD Work Phone: [facility] Start: 02-19-2022 Telephone encounter Paddy Zaidi MD Work Phone: Family Practice Comment on above: Medication Problem Start: 01-18-2022 End: 01-18-[address] Shayne Zaidi Work Phone: [facility] Work Phone: Start: 01-18-2022 End: 01-18-[address] Shayne Zaidi Work Phone: [facility]-Sleep Lab Start: 12-28-2021 Telephone encounter Paddy Zaidi MD Work Phone: Family Practice Comment on above: Received Outside Med ical Records (Pulmonary Medicine [facility]) Start: 12-28-2021 End: 12-28-[address] Shayne Zaidi Work Phone: [facility]-Pulmonary Medicine [facility] Start: 12-25-2021 Telephone encounter Paddy Zaidi MD Work Phone: Family Practice Comment on above: Received Outside Med ical Records ([facility] 12 lead EKG 12/16/2021 and 12/17/2021) Start: 12-23-2021 Non-patient / Non-visit Dr. Oscar Zaidi Work Phone: [facility] Start: 12-23-2021 Telephone encounter Paddy Zaidi MD Work Phone: Family Practice Comment on above: Received Outside Med ical Records (EKG 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 12/18/2021) Start: 12-18-2021 Non-patient / Non-visit Dr. Oscar Zaidi Work Phone: [facility] Start: 12-17-2021 Non-patient / Non-visit Dr. Oscar Zaidi Work Phone: [facility] Start: 12-17-2021 Telephone encounter Paddy Zaidi MD Work Phone: [facility] Comment on above: Received Outside Med ical Records ([facility]) Start: 12-17-2021 End: 12-18-2021 Non-patient / Non-visit Dr. Shayne Zaidi Work Phone: [facility] Start: 12-16-2021 Non-patient / Non-visit Dr. Oscar Zaidi Work Phone: [facility] Start: 12-16-2021 Telephone encounter Paddy Zaidi MD Work Phone: [facility] Comment on above: Received Outside Med ical Records ([facility] Cardiac Cath) Start: 12-16-2021 Non-patient / Non-visit Dr. Oscar Zaidi Work Phone: [facility] Start: 12-15-2021 Telephone encounter Paddy Zaidi MD Work Phone: [facility] Comment on above: Received Outside Med ical Records ([facility] ED) Start: 12-15-2021 Non-patient / Non-visit Dr. Oscar Zaidi Work Phone: [facility] Start: 12-15-2021 Non-patient / Non-visit Dr. Oscar Zaidi Work Phone: [facility] Start: 12-14-2021 Non-patient / Non-visit Dr. Oscar Zaidi Work Phone: [facility] Start: 12-14-2021 Non-patient / Non-visit Dr. Oscar Zaidi Work Phone: [facility] Start: 12-14-2021 End: 12-18-2021 Evaluation and management of inpatient Dr. Shayne Zaidi Work Phone: [facility] Start: 11-13-2021 Refill Hever Pamela A PRN.GRANTS ASSISTANT Work Phone: [facility] Comment on above: Refill Request Start: 09-14-2021 Telephone encounter Hever page 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.GRANTS ASSISTANT Work Phone: [facility] Comment on above: Results Start: 09-09-2021 Refill Hever Pamela A PRN.GRANTS ASSISTANT Work Phone: [facility] Comment on above: Refill Request Start: 06-22-2021 End: 06-22-2021 Patient encounter procedure Hever Pamela 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.GRANTS ASSISTANT Work Phone: [facility] Comment on above: Essential hypertensi on (Primary Dx); Pure hypercholesterolemia; Acquired hypothyroidism; Adjustment disorder with mixed anxiety and depressed mood; Peripheral polyneuropathy Start: 06-09-2021 Refill Paddy quintana MD Work Phone: [facility] Comment on above: Refill Request Start: 05-20-2021 Refill Paddy quintana MD Work Phone: [facility] Comment on above: Refill Request Procedures Date Procedure Procedure Detail Performing Clinician Start: 09-19-[address] Shayne Zaidi MD Work Phone: Start: 09-17-2024 CT angiography of he ad and neck Dr. Shayne Zaidi MD Work Phone: Start: 09-17-2024 MRI of brain without contrast Dr. Shayne Zaidi MD Work Phone: Start: 09-16-2024 Carbon dioxide measurement, partial pressure Dr. Shayne Zaidi MD Work Phone: Start: 09-16-2024 Gases blood o2 satur ation only direct regan Dr. Shayne Zaidi MD Work Phone: Start: 09-16-2024 Measurement of parti al pressure of oxygen in blood Dr. Shayne Zaidi MD Work Phone: Start: 09-16-[address] Shayne Zaidi MD Work Phone: Start: 09-16-2024 Plain chest X-ray Dr. Ralf Zaidi MD Work Phone: Start: 09-16-2024 Urnls dip stick/tabl et reagent auto microscopy Dr. Shayne Zaidi MD Work Phone: Start: 09-16-2024 CT of head without contrast Dr. Shayne Zaidi MD Work Phone: Start: 09-16-[address] Shayne Zaidi MD Work Phone: Start: 09-12-[address] Shayne [...] 03-27-2024 Noninvasive ear/puls e oximetry multiple deter Burton Huynh MD Work Phone: Start: 03-05-2024 Brncdilat rspse spmt ry pre&post-brncdilat admn Burton Huynh MD Work Phone: Start: 03-15-2023 SARS-CoV-2, [...] Zaidi Work Phone: Viral antigen assay Dr. Jennifer Zaidi Work Phone: Plan of Treatment Date Care Activity Detail Author Start: 09-10-2027 Diabetes Screening Diabetes Screenin [facility] Start: 06-30-2027 Diabetes Screening Diabetes Screenin g [facility] Start: 06-05-2026 Diabetes Screening Diabetes Screenin [facility] Start: 06-29-2025 Hepatitis B surface antibody level LDL Cholesterol [facility] Start: 05-21-2025 DIABETES SCREEN DIABETES SCREEN [facility] Start: 05-21-2025 Diabetes Screening Diabetes Screenin g [facility] Start: 11-16-2024 End: 11-16-2024 Patient encounter procedure 11/16/2024 10:00 AM EDT Office Visit Cardiology [address] [place] [address] [place] [address] [place] [address] Dx: Paroxysmal atrial fibrillation (HCC) [I48.0] Cardiology Comment on above: Dx: Paroxysmal atria l fibrillation (HCC) [I48.0] Start: 11-07-2024 End: 11-07-2024 Patient encounter procedure 11/07/2024 2:00 PM EDT Office Visit [facility] [address] [place], [place] [id number] Paddy Zaidi MD [address] [place], [place] [id number] 6 week follow up [facility] Comment on above: 6 week follow up Start: 10-16-2024 End: 10-16-2024 Patient encounter procedure 10/16/2024 3:20 PM EDT Office Visit [address] [place], [place] [id number] Paddy Zaidi MD [address] [place], [place] [id number] follow up [facility] Comment on above: follow up Start: 10-08-2024 Influenza vaccination Influenza Vacc ine (#1) [facility] Start: 10-02-2024 End: 10-02-2024 Patient encounter procedure Pulmonary Medicine Comment on above: 3 MTH F/U / PT DECLI LUCILA EARLIER APPOINTMENT Start: 09-25-2024 End: 12-25-2024 Basic metabolic 2000 panel - Serum or Plasma BASIC METABOLIC PANEL Lab Routine Hypokalemia Expected: 09/25/2024, Expires: 12/25/2024 [facility] Comment on above: Expected: 09/25/2024 , Expires: 12/25/2024 Start: 09-25-2024 End: 12-25-2024 CBC panel - Blood by Automated count COMPLETE BLOOD COUNT Lab Routine Acute on chronic diastolic congestive heart failure (HCC) Expected: 09/25/2024, Expires: 12/25/2024 [facility] Comment on above: Expected: 09/25/2024 , Expires: 12/25/2024 Start: 09-25-2024 End: 09-25-2024 Patient encounter procedure 09/25/2024 11:00 AM EDT Office Visit [facility] [address] [place] [address] Paddy Zaidi MD [address] [place] [address] HOSPITAL FOLLOW UP [facility] Comment on above: HOSPITAL FOLLOW UP Start: 09-19-2024 Patient discharge [facility] Start: 09-17-2024 Vital signs measurements [facility] Start: 09-17-2024 Aspiration precautions [facility] Start: 09-17-2024 Cardiac monitoring [facility] Start: 09-17-2024 Catheterization of vein [facility] Start: 09-17-2024 Consultation [facility] Start: 09-17-2024 Elevation of head of bed [facility] Start: 09-17-2024 Exercises [facility] Start: 09-17-2024 Notification of physician [facility] Start: 09-17-2024 Oxygen therapy [facility] Start: 09-17-2024 Referral to occupati onal therapist [facility] Start: 09-17-2024 Referral to service [facility] Start: 09-17-2024 Speech therapy assessment [facility] Start: 09-17-2024 Tobacco use cessatio n education [facility] Start: 09-17-2024 [facility] Start: 09-17-2024 End: 09-17-2024 [facility] Start: 09-17-2024 Telemedicine consult ation with patient [facility] Start: 09-16-2024 Following clinical pathway protocol [facility] Start: 09-16-2024 Aspiration precautions [facility] Start: 09-16-2024 Assessment of risk o f venous thromboembolism [facility] Start: 09-16-2024 Fall prevention [facility] Start: 09-16-2024 Inhalation therapy procedure [facility] Start: 09-16-2024 Insertion of cathete r into peripheral vein [facility] Start: 09-16-2024 Introduction of urin graham catheter [facility] Start: 09-16-2024 Measuring intake and output [facility] Start: 09-16-2024 Providing care accor ding to [facility] Start: 09-16-2024 Provision of activit y privileges [facility] Start: 09-16-2024 Referral to occupati onal therapist [facility] Start: 09-16-2024 Referral to service [facility] Start: 09-16-2024 Speech therapy assessment [facility] Start: 09-16-2024 [facility] Start: 09-16-2024 Blood ammonia measurement [facility] Start: 09-16-2024 Gas panel - Arterial blood [facility] Start: 09-16-[address] [facility] Start: 09-16-2024 Admission procedure [facility] Start: 09-16-2024 Hospital admission, emergency, from emergency room, medical nature [facility] Start: 09-16-2024 Patient referral to dietitian [facility] Start: 09-16-2024 [facility] Start: 09-14-2024 DIABETES SCREEN DIABETES SCREEN [facility] Start: 09-12-2024 Patient discharge [facility] Start: 09-10-2024 Speech therapy assessment [facility] Start: 09-10-2024 Continuous positive airway pressure ventilation treatment [facility] Start: 09-10-2024 Referral to orthotic assistant [facility] Start: 09-10-2024 Assessment of risk o f venous thromboembolism [facility] Start: 09-10-2024 Catheterization of vein [facility] Start: 09-10-2024 Insertion of cathete r into peripheral vein [facility] Start: 09-10-2024 Measuring intake and output [facility] Start: 09-10-2024 Oxygen therapy [facility] Start: 09-10-2024 Providing care accor ding to [facility] Start: 09-10-2024 Provision of activit y privileges [facility] Start: 09-10-2024 Referral to occupati onal therapist [facility] Start: 09-10-2024 Referral to service [facility] Start: 09-10-2024 Admission procedure [facility] Start: 09-10-2024 Following clinical pathway protocol [facility] Start: 09-10-2024 Consultation [facility] Start: 09-10-2024 End: 09-10-2024 [facility] Start: 07-13-2024 End: 07-13-2024 Patient encounter procedure 07/13/2024 4:20 PM EDT Office Visit Family Practice [address] [place], [place] [id number] Paddy Zaidi MD [address] [place] [address] [place], [place] [id number] Foot issues follow up Family Practice Comment on above: Foot issues follow u p Start: 06-26-2024 End: 06-26-2024 Patient encounter procedure Pulmonary Medicine Comment on above: 3 MTH F/U Start: 06-05-2024 Hepatitis B surface antibody level LDL Cholesterol [facility] Start: 03-27-2024 End: 03-27-2024 Patient encounter procedure Pulmonary Medicine Comment on above: f/up Pneumonia of left lo wer lobe due to infectious organism [J18.9]; Lung nodules [R91.8] Start: 03-27-2024 End: 03-27-2024 ambulatory 03/27/2024 1:30 PM EST Procedure [facility] [address] [place] [address] Wstr, Pulm Lab [facility] [address] [place] [address] 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] [facility]UL[facility] Comment on above: 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] Start: 03-26-2024 End: 03-26-2024 Patient encounter procedure 03/26/2024 3:00 PM EST Office Visit Family Practice [address] [place], [place] [id number] Paddy Zaidi MD [address] [place] [phone] follow up Family Practice Comment on above: follow up Start: 03-21-2024 End: 03-21-2024 Patient encounter procedure Pulmonary Medicine Comment on above: f/up Pneumonia of left lo wer lobe due to infectious organism [J18.9]; Lung nodules [R91.8] Start: 03-21-2024 End: 03-21-2024 ambulatory 03/21/2024 1:30 PM EST Procedure PULM LAB [facility] [address] [place] [address] Wstr, Pulm Lab [facility] [address] [place] [address] 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] PUL[facility] Comment on above: 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] Start: 03-14-2024 End: 03-14-2024 Patient encounter procedure Cat Scan Comment on above: Pneumonia of left lo wer lobe due to infectious organism [J18.9]; Lung nodules [R91.8] f/up Start: 03-14-2024 End: 03-14-2024 ambulatory 03/14/2024 12:30 PM EST Procedure [facility] [address] [place] [address] Wstr, Pulm Lab [facility] [address] [place] [id number] 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] PULM LAB [facility] Comment on above: 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] Start: 02-21-2024 End: 05-22-2024 CBC panel - Blood by Automated count COMPLETE BLOOD COUNT Lab Routine Paroxysmal atrial fibrillation (HCC) Expected: 02/21/2024, Expires: 05/22/2024 [facility] Work Phone: Comment on above: Expected: 02/21/2024 , Expires: 05/22/2024 Start: 02-14-2024 End: 05-15-2024 Basic metabolic 2000 panel - Serum or Plasma BASIC METABOLIC PANEL Lab Routine Paroxysmal atrial fibrillation (HCC) Expected: 02/14/2024, Expires: 05/15/2024 [facility] Comment on above: Expected: 02/14/2024 , Expires: 05/15/2024 Start: 02-14-2024 End: 02-14-2024 Patient encounter procedure 02/14/2024 2:00 PM EST Office Visit Family Practice [address] [place], [place] [address] Hever Martínez, 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.GRANTS ASSISTANT [address] [place], [place] [phone] hosptial f/u breathing cold coughing touch of pneumonia Family [facility] Comment on above: hosptial f/u breathi ng cold coughing touch of pneumonia Start: 02-08-2024 Advance Directive Discussion Advance Directive Discussion [facility] Start: 02-08-2024 Medicare Advantage A nnual Wellness Visit Medicare Advantage Annual Wellness Visit [facility] Start: 12-18-2023 DIABETES SCREEN DIABETES SCREEN [facility] Start: 10-09-2023 Covid-19 Vaccine ( season) Covid-19 Vaccine ( season) [facility] Start: 10-09-2023 Influenza vaccination [facility] Start: 07-08-2023 End: 07-08-2023 Patient encounter procedure 07/08/2023 3:40 PM EDT Office Visit Family Practice [address] [place], [place] [phone] Paddy Zaidi MD [address] [place], [place] [address] 1 month follow up [facility] Comment on above: 1 month follow up Start: 06-23-2023 End: 06-23-2023 Patient encounter procedure 06/23/2023 3:20 PM EDT Office Visit Family Practice [address] [place], [place] [phone] Paddy Zaidi MD [address] [place], [place] [id number] MEDICARE WELLNESS [id number] Family Practice Comment on above: MEDICARE WELLNESS Z0 0.00 Start: 06-16-2023 End: 06-16-2023 ambulatory 06/16/2023 2:15 PM EDT Procedure PULM LAB [facility] [address] [place] [address] Wstr, Pulm Lab [facility] [address] [place] [address] 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]; Hypoxemia [R09.02] PULM LAB [facility] Comment on above: 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) [I25.729]; Hypoxemia [R09.02] Start: 06-07-2023 End: 06-07-2023 Patient encounter procedure 06/07/2023 4:20 PM EDT Office Visit [facility] [address] [place], [place] [phone] Paddy Zaidi MD [address] [place], [place] [phone] anxiety, Family Practice Comment on above: anxiety, Start: 05-27-2023 End: 08-26-2023 CBC panel - Blood by Automated count COMPLETE BLOOD COUNT Lab Routine Essential hypertension Mixed hyperlipidemia Peripheral polyneuropathy Expected: 05/27/2023, Expires: 08/26/2023 [facility] Comment on above: Expected: 05/27/2023 , Expires: 08/26/2023 Start: 05-27-2023 End: 08-26-2023 Comprehensive metabolic 2000 panel - Serum or Plasma COMPREHENSIVE METABOLIC PANEL Lab Routine Essential hypertension Expected: 05/27/2023, Expires: 08/26/2023 [facility] Work Phone: Comment on above: Expected: 05/27/2023 , Expires: 08/26/2023 Start: 05-27-2023 End: 08-26-2023 Hemoglobin A1c in Blood HEMOGLOBIN A1C Lab Routine Peripheral polyneuropathy Expected: 05/27/2023, Expires: 08/26/2023 [facility] Comment on above: Expected: 05/27/2023 , Expires: 08/26/2023 Start: 05-27-2023 End: 08-26-2023 Lipid 1996 panel - Serum or Plasma LIPID PANEL BASIC Lab Routine Mixed hyperlipidemia Expected: 05/27/2023, Expires: 08/26/2023 [facility] Comment on above: Expected: 05/27/2023 , Expires: 08/26/2023 Start: 05-27-2023 End: 08-26-2023 Thyrotropin [Units/volume] in Serum or Plasma THYROID STIMULATING HORMONE Lab Routine Hypothyroidism, unspecified type Expected: 05/27/2023, Expires: 08/26/2023 [facility] Comment on above: Expected: 05/27/2023 , Expires: 08/26/2023 Start: 05-22-2023 Hepatitis B surface antibody level LDL CHOLESTEROL [facility] Start: 03-15-2023 [facility] Start: 03-15-2023 Inhalation therapy procedure [facility] Start: 02-07-2023 Advance Directive Discussion Advance Directive Discussion [facility] Start: 12-23-2022 SHINGRIX VACCINE (1 of 2) SMALL GRIX VACCINE (1 of 2) [facility] Comment on above: Postponed from 10/05 (Declined at this time) Start: 12-23-2022 Urine microalbumin profile DTAP,TDAP,TD (1 - Tdap) [facility] Comment on above: Postponed from 10/05 (Declined at this time) Start: 10-08-2022 Covid-19 Vaccine ( season) Covid-19 Vaccine () [facility] Start: 10-08-2022 Influenza vaccination [facility] Start: 05-21-2022 End: 07-21-2022 Natriuretic peptide.B prohormone N-Terminal [Mass/volume] in Serum or Plasma NT PRO BNP Lab Routine 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 of siletz tribe heart with angina pectoris (HCC) SOB (shortness of breath) Expected: 05/21/2022, Expires: 07/21/2022 [facility] Work Phone: Comment on above: Expected: 05/21/2022 , Expires: 07/21/2022 Start: 03-30-2022 End: 05-30-2022 CBC panel - Blood by Automated count CBC Lab Routine Medication management Expected: 03/30/2022, Expires: 05/30/2022 [facility] Work Phone: Comment on above: Expected: 03/30/2022 , Expires: 05/30/2022 Start: 03-30-2022 End: 05-30-2022 SCHEDULE LAB TESTING SCHEDULE LAB TESTING Lab Routine Expected: 03/30/2022, Expires: 05/30/2022 [facility] Work Phone: Comment on above: Expected: 03/30/2022 , Expires: 05/30/2022 Start: 03-30-2022 End: 05-30-2022 Thyrotropin [Units/volume] in Serum or Plasma TSH BLD Lab Routine Acquired hypothyroidism Expected: 03/30/2022, Expires: 05/30/2022 [facility] Work Phone: Comment on above: Expected: 03/30/2022 , Expires: 05/30/2022 Start: 02-07-2022 ADVANCE DIRECTIVE DISCUSSION ADVANCE DIRECTIVE DISCUSSION [facility] Start: 12-23-2021 Patient referral [facility] Work Phone: Start: 12-18-2021 Patient discharge [facility] Work Phone: Start: 12-18-2021 [facility] Work Phone: Start: 12-17-2021 Referral to occupati onal therapist [facility] Work Phone: Start: 12-17-2021 Referral to service [facility] Work Phone: Start: 12-17-2021 Hepatitis B surface antibody level LDL CHOLESTEROL [facility] Start: 12-16-2021 End: 12-17-2021 [facility] Work Phone: Start: 12-16-2021 Cardiac monitoring [facility] Work Phone: Start: 12-16-2021 Cardiac rehabilitati on - phase 1 [facility] Work Phone: Start: 12-16-2021 Cardiac rehabilitati on - phase 2 [facility] Work Phone: Start: 12-16-2021 Notification of physician [facility] Work Phone: Start: 12-16-2021 Patient discharge [facility] Work Phone: Start: 12-16-2021 Systemic arterial pressure monitoring [facility] Work Phone: Start: 12-16-2021 Taking patient vital signs [facility] Work Phone: Start: 12-16-2021 Vascular disease ris k assessment [facility] Work Phone: Start: 12-16-2021 Vital signs measurements [facility] Work Phone: Start: 12-15-2021 Care planning and pr oblem solving actions [facility] Work Phone: Start: 12-15-2021 Patient referral [facility] Work Phone: Start: 12-15-2021 Catheterization of vein [facility] Work Phone: Start: 12-15-2021 Medication not administered [facility] Work Phone: Start: 12-15-2021 [facility] Work Phone: Start: 12-14-2021 Care planning and pr oblem solving actions [facility] Work Phone: Start: 12-14-2021 Ambulation without limitation [facility] Work Phone: Start: 12-14-2021 Assessment of risk o f venous thromboembolism [facility] Work Phone: Start: 12-14-2021 Catheterization of vein [facility] Work Phone: Start: 12-14-2021 Chart related administrative procedure [facility] Work Phone: Start: 12-14-2021 Elevation of head of bed [facility] Work Phone: Start: 12-14-2021 Insertion of cathete r into peripheral vein [facility] Work Phone: Start: 12-14-2021 Measuring intake and output [facility] Work Phone: Start: 12-14-[address] [facility] Work Phone: Start: 12-14-2021 Oxygen therapy [facility] Work Phone: Start: 12-14-2021 Patient education [facility] Work Phone: Start: 12-14-2021 Providing care accor ding to standard [facility] Work Phone: Start: 12-14-2021 Referral to orthotic assistant [facility] Work Phone: Start: 12-14-2021 [facility] Work Phone: Start: 12-14-2021 Troponin I measurement [facility] Work Phone: Start: 12-14-2021 Bacteria identified in Sputum by Culture [facility] Work Phone: Start: 12-14-2021 Legionella pneumophi la Ag [Presence] in Urine [facility] Work Phone: Start: 12-14-2021 Streptococcus pneumo niae antigen assay [facility] Work Phone: Start: 12-14-2021 [facility] Work Phone: Start: 12-14-2021 End: 12-14-2021 Following clinical pathway protocol [facility] Work Phone: Start: 12-14-[address] [facility] Work Phone: Start: 12-14-2021 Admission procedure [facility] Work Phone: Start: 12-14-2021 [facility] Work Phone: Start: 10-08-2021 Influenza vaccination INFLUENZA (#1) [facility] Start: 09-10-2021 End: 11-10-2021 Basic metabolic 2000 panel - Serum or Plasma BASIC METABOLIC PNL Lab Routine Essential hypertension Hypokalemia Expected: 09/10/2021, Expires: 11/10/2021 [facility] Work Phone: Comment on above: Expected: 09/10/2021 , Expires: 11/10/2021 Start: 02-07-2021 ADVANCE DIRECTIVE DISCUSSION ADVANCE DIRECTIVE DISCUSSION [facility] Start: 08-25-2020 COVID-19 VACCINE (3 - Booster for Moderna series) COVID-19 VACCINE (3 - Booster for Moderna series) [facility] Start: 05-23-2020 COVID-19 VACCINE (3 - Booster for Moderna series) COVID-19 VACCINE (3 - Booster for Moderna series) [facility] Start: 05-23-2020 COVID-19 VACCINE (3 - Moderna series) COVID-19 VACCINE (3 - Moderna series) [facility] Start: 10-05-2014 RSV Vaccine (1 - 1-d ose 75+ series) RSV Vaccine (1 - 1-dose 75+ series) [facility] Start: 1999 RSV Vaccine (1 - 1-d ose 60+ series) RSV Vaccine (1 - 1-dose 60+ series) [facility] Start: 10-05-1989 SHINGRIX VACCINE (1 of 2) SMALL GRIX VACCINE (1 of 2) [facility] Start: 10-05-1958 Urine microalbumin profile [facility] Start: 10-05-1957 SPIROMETRY SPIROMETRY [facility] End: 04-04-2025 CT Chest WO contrast CT CHEST WO IVCON Radiology Routine Pneumonia of left lower lobe due to infectious organism Lung nodules 1 Occurrences starting 03/05/2024 until 04/04/2025 [facility] Work Phone: Comment on above: 1 Occurrences starti ng 03/05/2024 until 04/04/2025 CT Chest WO contrast CT CHEST WO IVCON Radiology Routine Pneumonia of left lower lobe due to infectious organism Lung nodules 03/27/2024 3:54 PM EST [facility] Work Phone: ECG COMPLETE ECG COMPLETE ECG Routine 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 of siletz tribe heart with angina pectoris (HCC) Paroxysmal atrial fibrillation (HCC) 05/21/2022 3:54 PM EDT [facility] Work Phone: Magnesium measurement [facility] OXIMETRY - NOCTURNAL OXIMETRY - NOCTURNAL Procedures Routine Hypoxia Ordered: 03/27/2024 [facility] Work Phone: Comment on above: Ordered: 03/27/2024 End: 04-04-2025 OXIMETRY WITH AMBULATION OXIMETRY WITH AMBULATION PFT Routine 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) 1 Occurrences starting 03/05/2024 until 04/04/2025 [facility] Comment on above: 1 Occurrences starti ng 03/05/2024 until 04/04/2025 Patient Education [facility] Work Phone: Patient referral [facility] Work Phone: End: 02-15-2025 PT panel - Platelet poor plasma by Coagulation assay PROTHROMBIN TIME Lab Routine Chronic atrial fibrillation (HCC) detention current use of anticoagulant therapy Once per week for 52 Occurrences starting 02/16/2024 until 02/15/2025 [facility] Work Phone: Comment on above: Once per week for 52 Occurrences starting 02/16/2024 until 02/15/2025 End: 09-25-2025 PT panel - Platelet poor plasma by Coagulation assay PROTHROMBIN TIME Lab Routine Atrial fibrillation with RVR (HCC) Every other week for 26 Occurrences starting 09/25/2024 until 09/25/2025 [facility] Work Phone: Comment on above: Every other week for 26 Occurrences starting 09/25/2024 until 09/25/2025 End: 06-20-2023 Radiologic exam chest 2 views XR CHEST 2V FRONTAL/LAT Radiology Routine 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 of siletz tribe heart with angina pectoris (HCC) Paroxysmal atrial fibrillation (HCC) SOB (shortness of breath) 1 Occurrences starting 05/21/2022 until 06/20/2023 [facility] Work Phone: Comment on above: 1 Occurrences starti ng 05/21/2022 until 06/20/2023 Radiologic exam ches t 2 views XR CHEST 2V FRONTAL/LAT Radiology Routine Pneumonia of right middle lobe due to infectious organism Ordered: 06/02/2022 [facility] Work Phone: Comment on above: Ordered: 06/02/2022 End: 07-06-2024 SIX MINUTE WALK SIX MINUTE WALK PFT Routine 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) Hypoxemia 1 Occurrences starting 06/07/2023 until 07/06/2024 [facility] Comment on above: 1 Occurrences starti ng 06/07/2023 until 07/06/2024 Troponin I measurement [facility] Work Phone: End: 07-06-2024 XR Chest PA and Lateral XR CHEST 2V FRONTAL/LAT Radiology Routine 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) SOB (shortness of breath) 1 Occurrences starting 06/07/2023 until 07/06/2024 [facility] Work Phone: Comment on above: 1 Occurrences starti ng 06/07/2023 until 07/06/2024 [facility] Immunizations Immunization Date Immunization Notes Care Provider Elise hernandez 02-14-2024 influenza, high dose seasonal, preservative-free Hever Martínez APRN.CNP Work Phone: [facility] 02-14-2024 influenza virus vacc ine, unspecified formulation Paddy Zaidi MD Work Phone: [facility] 12-17-2020 influenza, high-dose , quadrivalent vaccine (FLUZONE HIGH DOSE QUADRIVALENT) Paddy Zaidi MD Work Phone: [facility] 12-17-2020 influenza virus vacc ine, unspecified formulation Paddy Zaidi MD Work Phone: [facility] 03-28-2020 COVID-19 vaccine, fu ll dose (MODERNA) Paddy Zaidi MD Work Phone: [facility] 02-29-2020 COVID-19 vaccine, fu ll dose (MODERNA) Paddy Zaidi MD Work Phone: [facility] 07-31-2019 pneumococcal polysaccharide vaccine, 23 valent Paddy Zaidi MD Work Phone: [facility] 07-31-2019 pneumococcal vaccine , unspecified formulation Dr. Shayne Zaidi Work Phone: [facility] 01-12-[address] Shayne Zaidi Work Phone: [facility] 01-12-2018 influenza, high dose seasonal, preservative-free Paddy Zaidi MD Work Phone: [facility] 01-12-2018 influenza, seasonal, injectable Paddy Zaidi MD Work Phone: [facility] 01-12-2018 influenza, seasonal, injectable, preservative free Paddy Zaidi MD Work Phone: [facility] 01-12-2018 pneumococcal polysaccharide vaccine, 23 valent Paddy Zaidi MD Work Phone: [facility] 01-12-2018 pneumococcal vaccine , unspecified formulation Paddy Zaidi MD Work Phone: [facility] 03-31-2017 pneumococcal conjuga te vaccine, 13 valent Paddy Zaidi MD Work Phone: [facility] 12-08-[address] Shayne Zaidi Work Phone: [facility] 12-08-2016 influenza, seasonal, injectable Paddy Zaidi MD Work Phone: [facility] 12-08-2016 influenza, seasonal, injectable, preservative free Paddy Zaidi MD Work Phone: [facility] 11-27-2016 influenza, high dose seasonal, preservative-free Paddy Zaidi MD Work Phone: [facility] Work Phone: 12-01-2013 influenza virus vacc ine, whole virus Paddy Zaidi MD Work Phone: [facility] 11-23-2012 influenza virus vacc ine, unspecified formulation Paddy Zaidi MD Work Phone: [facility] 01-16-2010 pneumococcal polysaccharide vaccine, 23 valent Paddy Zaidi MD Work Phone: [facility] 12-09-2009 influenza virus vacc ine, unspecified formulation Paddy Zaidi MD Work Phone: [facility] 12-23-2008 influenza virus vacc ine, unspecified formulation Paddy Zaidi MD Work Phone: [facility] Work Phone: Payers Date Payer Category Payer Self-pay [id number] 2021 Medicare [id number] 2021 Medicare AETNA MEDICARE A ETNA MEDICARE PPO [id number] 2021-Present [phone] [address] [place] [address] PPO [id number] 2021 Medicare (Managed Care) [place] [facility] [id number] 2014 Private Health Insurance 101 [id number] 2009 Medicare AETNA MEDICARE A ETNA MEDICARE PPO [id number] 2009-Present [phone] [address] [place] [address] [facility] [id number] Medicare MEDICARE PART A B [id number] Unknown [id number] 462 Unknown [id number]. 462 Unknown [id number]. 462 Unknown [id number]. 462 Unknown [id number]. 462 Unknown [id number] [id number]. 462 Unknown [id number]. 462 Unknown [id number] [id number]. 462 Unknown [id number] [id number]. 462 Unknown [id number] [id number]. 462 Unknown [id number] [id number]. 462 Unknown [id number]. 462 Unknown [id number] 462 Social History Date Type Detail Facility Start: 02-01-2017 End: 03-05-2024 Tobacco smoking status NHIS Ex-smoker [facility] Start: 10-17-1967 End: 10-16-1992 History of tobacco use Current smoker [facility] Start: 10-17-1967 End: 10-16-1992 History of tobacco use Cigarette Smoker [facility] Start: 12-17-2020 End: 09-25-2024 Alcohol intake Current non-drinker of alcohol (finding) [facility] Start: 1940 Sex Assigned At Not on file [facility] Start: 06-12-2021 End: 12-23-2021 Exposure to SARS-CoV-2 (event) Not sure [facility] Start: 02-01-2017 End: 07-20-2022 Cigarettes smoked current (pack per day) - Reported 2 [facility] Start: 02-01-2017 End: 03-05-2024 Tobacco use and exposure Smokeless tobacco non-user [facility] Start: 12-14-2021 End: 03-15-2023 Tobacco smoking status NHIS Unknown if ever smoked [facility] Start: 07-28-2019 None [facility] Start: 07-28-2019 Spouse/ Signif icant Other [facility] Start: 07-28-2019 Non-smoker [facility] Start: 1940 Sex Assigned At Male [facility] Start: 06-02-2022 End: 07-20-2022 Tobacco use panel [facility] Start: 01-09-2012 Adult Depression Screening Assessment 0 [facility] Medical Equipment Procedure Code Equipment Code Equipment [...] X3 Insert for MDM FDA Start: 07-24-2018 ([id number]) Drug-eluting cor onary artery stent, bioabsorbable-polymer -coated ([id number] FDA Start: 12-16-2021 6.5MM CANNULATED SCREW FDA [...] /State Functional Status Date Assessment Result Facility 09-19-2024 Functional status Ambulates [facility] Work Phone: 09-12-2024 Functional status Ambulates [facility] Work Phone: 12-18-2021 Functional status Chair [facility] Work Phone: 07-29-2014 Are you deaf, or do you have serious difficulty hearing No 07/29/2014 10:56 AM Sindhu Quiroz Ma No [facility] 07-29-2014 Are you blind, or do you have serious difficulty seeing, even when wearing glasses No 07/29/2014 10:56 AM Sindhu Quiroz Ma No [facility] 07-29-2014 Do you have serious difficulty walking or climbing stairs No 07/29/2014 10:56 AM Sindhu Quiroz Ma No [facility] 07-29-2014 Do you have difficul ty dressing or bathing No 07/29/2014 10:56 AM Sindhu Quiroz Ma No [facility] 07-29-2014 Because of a physica l, mental, or emotional condition, do you have difficulty doing errands alone such as visiting a physician's office or shopping No 07/29/2014 10:56 AM Sindhu Quiroz Ma No [facility] Mental Status Date Assessment Result Facility 09-19-2024 Cognitive function Voice/Name [facility] Work Phone: 09-16-2024 Cognitive function Level Of Cons ciousness Awake;Alert;Appropriate;Fol lows Commands [facility] Work Phone: 09-12-2024 Cognitive function Voice/Name [facility] Work Phone: 12-18-2021 Cognitive function Voice/Name [facility] Work Phone: 07-29-2014 Because of a physica l, mental, or emotional condition, do you have serious difficulty concentrating, remembering, or making decisions No 07/29/2014 10:56 AM EDT Mattie Moy, Sindhu Haley No [facility] Clinical Notes 05-21-2021 to 09-25-2024 Paddy Zaidi MD - 09/25/2024 3:52 PM EDTTelephone Encounter - Cassandra Ann LPN - 09/20/2024 1:45 PM EDTTelephone Encounter - Cassandra Ann LPN - 09/20/2024 1:45 PM EDT Note Date & Type Note Facility 09-25-2024 Note HNO ID: [id number] Author: PADDY ZAIDI MD Service: ? Author Type: Physician Type: Progress Notes Filed: 09/25/2024 16:20 Note Text: Subjective Adrian Pedersen is an 83-year-old male with a history of atrial fibrillation, heart failure, and anxiety, accompanied by his daughter who is providing history on his behalf, presenting for follow-up after recent hospitalizations. Atrial Fibrillation: - Recent hospitalization at [facility] for heart failure, and pneumonia. Known history of aftb - Previously on Eliquis, switched to Coumadin due to cost. - Last INR check in February; no recent monitoring. - Scheduled cardiology appointment in November. Heart Failure: - Recent hospitalization for heart failure. - Discharged on Lasix 40 mg BID, atenolol, and spironolactone. - Difficulty standing and walking; his live in aide assists with mobility. - Poor oral intake; minimal fluid consumption. The aide is worried about dehydration on the high Lasix dose particularly since he doesn't have fluid on the legs. Consult in hospital with Dr Muller, he has not seen him as an outpatel Anxiety: - History of anxiety and panic attacks. Sometimes severe. - buspirone 10 mg BID added at discharge, also given Rx for hydroxyzine. - On Paxi, previous Lexapro; has used lorazepam for acute anxiety episodes. Constitutional: (+) hypersomnia Ears/Nose/Mouth/Throat: (+) hearing loss Cardiovascular: (+) chest pain, (-) peripheral edema Gastrointestinal: (+) decreased appetite Genitourinary: (+) dark urine Musculoskeletal: (+) difficulty walking, (+) difficulty standing Neurological: (+) memory loss, (+) confusion Psychiatric: (+) anxiety, (+) panic attacks Objective Blood pressure 110/71, pulse 99, height 177.8 cm (5' 10), SpO2 99%. General: No acute distress. Resp: Lungs clear to auscultation. Diminished breath shound in bot bases., Heart irregular, no gallop Legs with trace edema. Excoriated skin Labs Elev alk phos, BNP 2490 INR 1.4 Tests Echo Complete W/ Contrast on 09-10-2024 Echo Complete W/ Contrast [facility] [address] [place] [address] Echo Complete W/ Contrast 09/10/24 1001 MR#: [id number] Acct: [id number] Name: TYLOR PEDERSEN Rep #: [id number] : 1940 83 From: Dallas Muller MD Attending Dr: Dr. Aayush Sibley DO Status: A DM IN Ordering Dr: Kristopher Valencia DO Date: 09/10/24 Location: U Sex: M C Admitted: 09/10/24 Reason For [...] VTI: 13.3 cm AV (velocity ratio): 0.76 (more content not included)... [facility] 09-25-2024 History of Presen t illness Narrative Subjective Adrian Pedersen is an 83-year-old male with a history of atrial fibrillation, heart failure, and anxiety, accompanied by his daughter who is providing history on his behalf, presenting for follow-up after recent hospitalizations. Atrial Fibrillation: - Recent hospitalization at [facility] for heart failure, and pneumonia. Known history of aftb - Previously on Eliquis, switched to Coumadin due to cost. - Last INR check in February; no recent monitoring. - Scheduled cardiology appointment in November. Heart Failure: - Recent hospitalization for heart failure. - Discharged on Lasix 40 mg BID, atenolol, and spironolactone. - Difficulty standing and walking; his live in aide assists with mobility. - Poor oral intake; minimal fluid consumption. The aide is worried about dehydration on the high Lasix dose particularly since he doesn't have fluid on the legs. Consult in hospital with Dr Muller, he has not seen him as an outpatel Anxiety: - History of anxiety and panic attacks. Sometimes severe. - buspirone 10 mg BID added at discharge, also given Rx for hydroxyzine. - On Paxi, previous Lexapro; has used lorazepam for acute anxiety episodes. Constitutional: (+) hypersomnia Ears/Nose/Mouth/Throat: (+) hearing loss Cardiovascular: (+) chest pain, (-) peripheral edema Gastrointestinal: (+) decreased appetite Genitourinary: (+) dark urine Musculoskeletal: (+) difficulty walking, (+) difficulty standing Neurological: (+) memory loss, (+) confusion Psychiatric: (+) anxiety, (+) panic attacks Objective Blood pressure 110/71, pulse 99, height 177.8 cm (5' 10), SpO2 99%. General: No acute distress. Resp: Lungs clear to auscultation. Diminished breath shound in bot bases., Heart irregular, no gallop Legs with trace edema. Excoriated skin Labs Elev alk phos, BNP 2490 INR 1.4 Tests Echo Complete W/ Contrast on 09-10-2024 Echo Complete W/ Contrast [facility] [address] [place] [address] Echo Complete W/ Contrast 09/10/24 1001 MR#: [id number] Acct: [id number] Name: TYLOR PEDERSEN Rep #: [id number] : 1940 83 From: Dallas Muller MD Attending Dr: Dr. Aayush Sibley DO Status: A DM IN Ordering Dr: Kristopher Valencia DO Date: 09/10/24 Location: [facility] Sex: M C Admitted: 09/10/24 Reason [...] cm LVPWd: 1.6 cm FS: 23.9 % ____ LAV(MOD-bp): 57.2 ml LVAd ap4: 23.6 cm2 SV(MOD-sp4): 29.7 ml LAV(MOD-bp) Indexed: 26.6 ml/m2 LVLd ap4: 7.2 cm SI(MOD-sp4): 13.8 ml/m2 LAV(MOD-sp2): 66.3 ml EDV(MOD-sp4): 61.7 ml LAV(MOD-sp4): 42.3 ml EDV(sp4-el): 65.4 ml LVAs ap4: 15.7 cm2 LVLs ap4: 6.5 cm ESV(MOD-sp4): 32.0 ml ESV(sp4-el): 32.5 ml EF(MOD-sp4): 48.2 % EF(sp4-el): 50.4 % ____ SV(sp4-el): 33.0 ml LA A4 area: 15.9 cm2 LA dimension(2D): 5.0 cm ____ RA A4 area: 21.1 cm2 Doppler Measurements [...] VTI: 13.3 cm AV (velocity ratio): 0.76 ____ PA V2 max: 97.2 cm/sec TR max [...] ZAIDI Performed By: Manju Sahu RCS 09/10/24 1719 Date ____ Dallas Muller MD Chest x ray show elevated r hemidiaphragm and atelectasis vs infiltrate. Assessment & Plan 1. Acute on chronic diastolic congestive heart failure (HCC) (I50.33) 2. Atrial fibrillation with RVR (HCC) (I48.91) 3. detention current use of anticoagulant therapy (Z79.01) - Recent hospitalization for acute on chronic diastolic CHF, atrial fibrillation with RVR, and aspiration pneumonia. - Reviewed hospital records from [facility], including cardiology consultation by Dr. Muller on September 10. - On warfarin for anticoagulation management; previously on Eliquis, switched due to cost. - Coumadin management and INR monitoring have been inconsistent; last INR check in February. - Reduce furosemide from 40 mg BID to 40 mg QD or 20 mg BID; instructed to monitor weight and hold second dose if weight loss exceeds a couple of pounds. - Order standing prothrombin time (PT/INR) every other week; instructed to follow up at Coumadin clinic at [facility]. - Order blood count and kidney function tests next week at [facility]. - Refer to Dr. Muller (cardiology) at [facility] for follow-up and ongoing management. 4. Aspiration pneumonia, unspecified aspiration pneumonia type, unspecified laterality, unspecified part of lung (HCC) (J69.0) - Recent hospitalization for aspiration pneumonia; completed antibiotic course. 5. Adjustment disorder with mixed anxiety and depressed mood (F43.23) 6. Anxiety attack (F41.0) - Anxiety and panic attacks; currently on buspirone 10 mg BID, which appears to be helping. - Previously on paroxetine and escitalopram; history of lorazepam use for acute anxiety. - Start lorazepam for acute anxiety attacks; instructed to use sparingly and not exceed prescribed amount. - Discontinue hydroxyzine. 7. Hypokalemia (E87.6) Needs repeat labs. Office Visit on 09/25/24 PROTHROMBIN TIME BASIC METABOLIC PANEL COMPLETE BLOOD COUNT CONSULT TO CARDIOLOGY He'll start in the Coumadin clinic in [place]. Recording using Fantom software for draft documentation of the visit was discussed with the patient/authorized passenger representative; all questions welcomed and answered. Patient/authorized passenger representative agreed to proceed Paddy Zaidi MD documented in this encounter [facility] 09-20-2024 Telephone encounter Note Received 09/20/[address] [facility]. Placed in provider's inbox for review. Route to [place] for scanning. Altered mental status hallucination/delusion [facility] 09-20-2024 Miscellaneous Notes Received 09/20/[address] [facility]. Placed in provider's inbox for review. Route to [place] for scanning. Altered mental status hallucination/delusion documented in this encounter [facility] 09-19-2024 Discharge summary [facility] 09-19-2024 Discharge summary [facility] 09-19-2024 Discharge summary Note Date/Time September 19, 2024 11:56am [facility] Medical Records Department [address] [place] [address] Discharge Summary 09/19/24 0941 MR#: [id number] Acct: [id number] Name: TYLOR PEDERSEN Rep #:[id number] : 1940 83 From: Trevor Moody PCP: Dr. Shayne Zaidi MD Status:ADM MARICARMEN Location: [place] [address] Providers Date of Admission: 09/16/24 Date of Discharge: 09/19/24 Primary Care Physician: Dr. Shayne Zaidi MD Consultations 08/11/25 10:45 neuro [Consult: Tele-Neurology] Routine Consulting Provider: [facility] Reason for Consult: acute encephalopathy EMERGENT Consult: No MD Notified: Yes Date Notified: 09/17/24 Time Notified: 11:27 Method of Notification: Answering Service Nursing Unit Staff Notify [facility] of Tele-Neurology Consult: Yes Reason For Visit: ENCEPHALOPATHY Diagnosis Discharge Diagnosis (1) Altered mental status: Status: Acute Code(s): R41.82 - Altered mental status, unspecified (2) Leukocytosis: Status: Acute Code(s): D72.829 - Elevated white blood cell count, unspecified Plan The patient is 83-year-old gentleman being admitted for confusion, talking irrelevant. As per EMS patient was been talking to family members, hallucination/delusion. He stated he felt a lot of anxiety. Patient was discharged with recent aspiration pneumonia and completed antibiotic Augmentin #1. Altered mental status/delusions/hallucination, talking irrelevant: Exact etiology unclear. MRI is ordered. CT head does not show acute intracranial abnormality. Procalcitonin normal. ABG 7.4 63/120/40.2. Total bicarb 42. BMP bicarb is 35.6. High discrepancy more than 5. 09/18: Seen by neurologist. She noticed some right arm weakness and possible left ataxia which was concern for possible multiple vascular territory stroke, or delirium 09/19: Patient on baseline mental status. Acute Endolucin most likely due to delirium probably from multiple comorbidities including heart failure. #2. Chronic HFpEF with recent Acute HFpEF Exacerbation: Chest x-ray no acute finding. INR 3.1 increased to 3.4. Continue INR. Continue statin therapy, atenolol, spironolactone, Lasix regimen. IV fluid in ED discontinued most recent echocardiogram during recent admission 09/10/2024 withnormal LV size, LV systolic function lower limits of normal, EF 53%, mild focal MV calcification, bileaflet, PASP 40 mmHg. 09/18: Patient does not have shortness of breath or chest pain. INR is 2.8. Resume warfarin lower dose 3 mg daily and titrate according to the INR. #3. Recent aspiration pneumonia: On oral Augmentin. Speech therapy consulted. Aspiration precaution. Continue diet adjustment with nectar thickened liquids. 09/19: Patient completed Augmentin. #4. PAF: INR supratherapeutic on atenolol. Heart rate 106. 8/32: INR 2.1. Warfarin was resumed yesterday. Continue warfarin 5 mg daily. #5. CAD: Status post previous CABG x 2 and PCI noted of the distal left main and then the circumflex artery, also saphenous vein graft to the obtuse marginalbranch and ECHEVARRIA to the LAD previously noted to be patent with an occluded right coronary artery and [id number] collaterals evident. Continue baby aspirin, statin therapy, atenolol, not on ISSAC inhibitor/ARB, unclear reason. Losartan 50mg started #6. Chronic COPD with chronic hypoxic respiratory failure: on 3 L NC home oxygen supplementation, temporarily hold home inhaler and transition interim to ATC budesonide therapy given PAF with RVR recent presentation concurrently, PRN albuterol, HOB, IS parameters. #7. Hypertension: Continue home regimen including spironolactone, Lasix, atenolol with hold parameters as needed, PRN hydralazine. #8. Hyperlipidemia: continue patient home statin therapy. #9. Hypothyroidism: continue patient on levothyroxine regimen, TSH normal. #10. Chronic neuropathy: continue patient on gabapentin regimen, low threshold to hold for sedation. 09/19: Advised to follow-up with neurologist. #11. History of CVA: Patient with history of previous strokes including left brainstem stroke, will continue to baby aspirin, Coumadin with INR trending, statin therapy, hypertensive regimen as noted. #12. Chronic Kidney Disease Stage II: Admission BUN/Cr 24/0.1, GFR 87, baselinerenal function 0.6-0.9, 09/18: Kidney function 25/0.83 normal. #13. Anxiety and depression, panic attacks: continue patient on paroxetine regimen. Administered low-dose IV Ativan in the ED however patient following asexpected is somnolent thus will avoid further administration if able. #14. Obesity: Weight loss and lifestyle changes encouraged. #15. DVT prophylaxis: As mentioned above #16. CODE status: Full Code. PT and OT and physical therapy. Laboratory Results 09/18/24 06:58: WBC 11.2 H, RBC 4.29 L, Hgb 13.0, Hct 41.9, MCV 97.7 H, MCH 30.3, MCHC 31.0 L, RDW Std Deviation 49.2 H, RDW Coeff of Erica 13.6, Plt Count 171, MPV 9.1, Immature Gran % (Auto) 1.600 H, Neut % (Auto) 80.5 H, Lymph % (Auto) 7.0 L, [place] % (Auto) 5.8, Eos % (Auto) 4.7, Baso % (Auto) 0.4, Absolute Neuts (auto) 9.0 H, Absolute Lymphs (auto) 0.78 L, Nucleated RBC % 0, PT 30.3 H,INR 2.8, Sodium 137, Potassium 4.1, Chloride 98, Carbon Dioxide 29.9, Anion Gap 9, BUN 25 H, Creatinine 0.83, Estim Creat Clear Calc 76.05, Est GFR (MDRD) Non-Af 86, BUN/Creatinine Ratio 30.5 H, Glucose 107 H, Hemoglobin A1c 5.7, Calcium 8.7, Triglycerides 89, Cholesterol 99, LDL Cholesterol, Calc 51, VLDL Cholesterol 18, HDL Cholesterol 31 L, Cholesterol/HDL Ratio 3.19, TSH 1.410 Medications at Discharge Home Medications levothyroxine 50 mcg tablet 50 mcg PO DAILY thyroid 07/25/19 atorvastatin 40 mg tablet 40 mg PO QHS cholesterol 07/28/19 spironolactone 25 mg tablet 25 mg PO DAILY diuretic 07/28/19 aspirin 81 mg chewable tablet 81 mg PO DAILY@0800 health 12/14/21 albuterol sulfate 90 mcg/actuation aerosol inhaler (Ventolin HFA) 2 puff inhalation Q4H PRN PRN Wheezing ##1 03/15/23 fluticasone 250 mcg-salmeterol 50 mcg/dose blistr powdr for inhalation 1 inh inhalation Q12H breathing 09/10/24 gabapentin 300 mg capsule 300 mg PO BID nerve pain 09/10/24 nitroglycerin 0.3 mg sublingual tablet 0.3 mg sublingual Q5M PRN chest pain 09/10/24 paroxetine HCl 40 mg tablet 40 mg PO DAILY mental health 09/10/24 atenolol 50 mg tablet 50 mg PO DAILY blood pressure #30 tabs 09/12/24 furosemide 40 mg tablet (Lasix) 40 mg PO BID diuretic #60 tabs 09/12/24 warfarin 2.5 mg tablet (Jantoven) 5 mg (2 x 2.5 mg) PO 1700 blood thinner #60 tabs 09/12/24 buspirone 10 mg tablet 10 mg PO BID 1 month #60 tabs 09/19/24 hydroxyzine HCl 25 mg tablet 25 mg PO TID PRN anxiety #20 tabs 09/19/24 losartan 50 mg tablet 25 mg (1/2 x 50 mg) PO DAILY #30 tabs 09/19/24 Physical Exam Narrative Seen and examined Patient is feeling good. No shortness of breath. He complained of mild neuropathy symptoms. Patient is hard of hearing using hearing aid . Physical exam General: Awake, alert oriented to person and place. Oriented to time. HEENT: Atraumatic, PERRLA, EOMI, Normocephalic. Oral: No Gingival or Mucosal Lesions/ Ulcerations Neck: Supple, No JVD, Negative Carotid Bruits Chest wall/Lungs: Air entry diminished in bilateral lung bases. No crepitation/rhonchi Cardiovascular: Irregular rhythm, A-fib, No M/G/R Abdomen: Bowel Sounds Present, Soft, Non Tender, Non-Distended : No dysuria. No renal angle tenderness. No suprapubic tenderness. Extremities: No edema, Capillary Refill Less than 3 Seconds Skin: No rashes, No breakdown Musculoskeletal: No Tenderness to Palpation of Joints or Extremities Neurological: Cranial nerves II-XII grossly intact, DTR 2+/4. No acute focal neurological deficit. Chronic neuropathy in the feet. Psych/Mental Status: Flat affect, anxious. Weight / BMI Weight Weight: 202 lb 13.204 oz Body Mass Index (BMI) 28.3 ABG / Lab / Microbiology Data 09/19/24 04:45 09/19/24 04:45 Laboratory: Laboratory Results - last 24 hr 09/19/24 04:45: WBC 10.3, RBC 4.07 L, Hgb 12.3 L, Hct 39.4 L, MCV 96.8 H, MCH 30.2, MCHC 31.2 L, RDW Std Deviation 48.2 H, RDW Coeff of Erica 13.4, Plt Count 171, MPV 9.6, Immature Gran % (Auto) 1.400 H, Neut % (Auto) 80.4 H, Lymph % (Auto) 7.5 L, Windham % (Auto) 6.4, Eos % (Auto) 3.9, Baso % (Auto) 0.4, Absolute Neuts (auto) 8.3 H, Absolute Lymphs (auto) 0.77 L, Nucleated RBC % 0, PT 24.4 H,INR 2.1, Sodium 138, Potassium 3.9, Chloride 98, Carbon Dioxide 30.4, Anion Gap 10, BUN 24 H, Creatinine 0.74, Estim Creat Clear Calc 78.36, Est GFR (MDRD) Non-Af 89, BUN/Creatinine Ratio 32.3 H, Glucose 93, Calcium 8.7, Magnesium 2.5 H D/C Instructions Weight Bearing Status: Weight bearing as tolerated Call your doctor if you observe: Fever of 101 or Higher, Coldness, Increased Pain, Numbness or Tingling, Change in Color, Inability to urinate, Inability to have a bowel movement, Shortness of breath, Dizziness, Fainting spells, Swellingin the ankles, Chest pain, Prolonged hiccupping, Increased palpitations (irregular heartbeat) and Calf discomfort DC O2, CPAP, BIPAP Needs Home O2 Discharge instructions: Yes Type of respiratory needs?: Oxygen Oxygen frequency: Continuous Continuous oxygen liters per minute: 3 DC home with Oxygen: Yes Home O2 MD Review: I have reviewed the oxygen testing, and the patient qualifies for home oxygen equipment and portability. The patient is mobile in the home and the community. When: IN 2 WEEKS Meaningful Use Info Meaningful Use Meaningful Use Diagnoses (Choose all that apply): None applicable Discharge Plan Admission Admit Date/Time: 09/16/24 21:19 Primary Reason for Your Visit: Delirium, altered mental status Attending Provider: Trevor Burton Primary Care Provider: Shayne Zaidi Consulting Providers: Olivia Walters; Judit Rock; Trixie Jeronimo; Ant Espinoza; Darius Tapia; German Perera; Luis Antonio Suarez; KEVIN BEARD; Aga Servin; Susana Gonzales; Stan Mays; Sweetie Rowe; Maikel Morocho; Nerissa Lebron; Denise Aparicio; Nato Rivera; Eden Matthew; Jake Espinoza; Samson Richard; Ernesto Reeves; John Calhoun; Philippe Syed; Eulogio Mitchell; Selam Monique; Tevin Shin; Karma Cabrera; Gonzalo Goyal Discharge Orders/Prescriptions Prescriptions: New losartan 50 mg Tablet 25 mg PO DAILY Qty: 30 0RF buspirone 10 mg tablet 10 mg PO BID 30 Days Qty: 60 0RF hydroxyzine HCl 25 mg tablet 25 mg PO TID PRN (Reason: anxiety) Qty: 20 0RF Continued levothyroxine 50 MCG tablet 50 mcg PO DAILY atorvastatin 40 MG tablet 40 mg PO QHS spironolactone 25 MG tablet 25 mg PO DAILY aspirin 81 MG tablet,chewable 81 mg [...] 40 mg tablet 40 mg PO DAILY warfarin [Jantoven] 2.5 mg Tablet 5 mg PO 1700 Qty: 60 0RF atenolol 50 mg Tablet 50 mg PO DAILY Qty: 30 0RF furosemide [Lasix] 40 mg tablet 40 mg PO BID Qty: 60 0RF Discontinued potassium chloride 10 mEq tablet extended release 20 meq PO DAILY Patient Comments: TAKE 2 TABLETS BY MOUTH ONCE DAILY WITH BREAKFAST amoxicillin-pot clavulanate 875-125 mg Tablet 1 tab PO BIDCM Qty: 11 0RF Rx Instructions: Take with food Referrals / Follow Up: Shayne Zaidi MD [Primary Care Provider] - 09/25/24 11:00 am Milton Fagan MD [Non-Staff -Ordering Privileges] - Within 1 Month (lower extneuropathy) Disposition Disposition (needs filled in before D/C Order can be placed): Home, Self Care Charges/Coding Visit Charges Inpatient E&M: 28551 Disch Hosp >30min 09/19/24 1156 <Electronically signed by Trevor Burton MD> Cosigner Signature (if applicable): CC: Dr. Shayne Zaidi MD; Dr. Trevor Burton MD~ Signed [facility] Work Phone: [phone]) 905-686108-13-2025 Discharge summary Author Trevor Burton [facility] Note Date/Time September 19, 2024 11 :50am [facility] Medical Records Department [address] [place] [address] Instructions for Home/Discharge Instructions 09/19/24 0857 MR#: [id number] Acct: [id number] Name: TYLOR PEDERSEN Rep #:[id number] : 1940 83 From: Trevor Moody PCP: Dr. Shayne Zaidi MD Status:ADM MARICARMEN Discharge Instructions DC O2, CPAP, BIPAP needs Home O2 Discharge instructions: Yes Type of respiratory needs?: Oxygen Oxygen frequency: Continuous Continuous oxygen liters per minute: 3 Dressing / Incision Discharge Activity: Return to Normal Activity Weight Bearing Status: Weight bearing as tolerated Dressing / Incision Call your doctor if you observe: Fever of 101 or Higher, Coldness, Increased Pain, Numbness or Tingling, Change in Color, Inability to urinate, Inability to have a bowel movement, Shortness of breath, Dizziness, Fainting spells, Swellingin the ankles, Chest pain, Prolonged hiccupping, Increased palpitations (irregular heartbeat) and Calf discomfort Follow Up Care When: IN 2 WEEKS Test Results: Test results from this visit will be discussed in further detail at your follow- up appointment, if applicable. Discharge Plan Admission Admit Date/Time: 09/16/24 21:19 Primary Reason for Your Visit: Delirium, altered mental status Attending Provider: Trevor Burton Primary Care Provider: Shayne Zaidi Consulting Providers: Olivia Walters; Judit Rock; Trixie Jeronimo; Ant Espinoza; Darius Tapia; German Perera; Luis Antonio Suarez; KEVIN BEARD; Aga Servin; Susana Gonzales; Stan Mays; Sweetie Rowe; Maikel Morocho; Nerissa Lebron; Denise Aparicio; Nato Rivera; Eden Matthew; Jake Espinoza; Samson Richard; Ernesto Reeves; John aClhoun; Philippe Syed; Eulogio Mitchell; Selam Monique; Tevin Shin; Karma Cabrera; Gonzalo Goyal Discharge Orders/Prescriptions Prescriptions: New losartan 50 mg Tablet 25 mg PO DAILY Qty: 30 0RF buspirone 10 mg tablet 10 mg PO BID 30 Days Qty: 60 0RF hydroxyzine HCl 25 mg tablet 25 mg PO TID PRN (Reason: anxiety) Qty: 20 0RF Continued levothyroxine 50 MCG tablet 50 mcg PO DAILY atorvastatin 40 MG tablet 40 mg PO QHS spironolactone 25 MG tablet 25 mg PO DAILY aspirin 81 MG tablet,chewable 81 mg [...] 40 mg tablet 40 mg PO DAILY warfarin [Jantoven] 2.5 mg Tablet 5 mg PO 1700 Qty: 60 0RF atenolol 50 mg Tablet 50 mg PO DAILY Qty: 30 0RF furosemide [Lasix] 40 mg tablet 40 mg PO BID Qty: 60 0RF Discontinued potassium chloride 10 mEq tablet extended release 20 meq PO DAILY Patient Comments: TAKE 2 TABLETS BY MOUTH ONCE DAILY WITH BREAKFAST amoxicillin-pot clavulanate 875-125 mg Tablet 1 tab PO BIDCM Qty: 11 0RF Rx Instructions: Take with food Referrals / Follow Up: Shayne Zaidi MD [Primary Care Provider] - 09/25/24 11:00 am Milton Fagan MD [Non-Staff -Ordering Privileges] - Within 1 Month (lower extneuropathy) Disposition Disposition (needs filled in before D/C Order can be placed): Home, Self Care 09/19/24 1150<Electronically signed by Trevor Burton MD>Trevor Burton MD CC: Denise Aparicio; Susana Gonzales; Eulogio Mitchell; Trixie Jeronimo MD; Nerissa Lebron MD; Maikel Morocho MD; Ant Espinoza MD; Dr. Edison Beard MD; Dr. Judit Rock MD; Dr. Olivia Walters MD; Dr. Nato Rivera MD; Dr. Eden Matthew MD; Dr. Samson Richard MD; Dr. Jake Espinoza MD; Dr. Shayne Zaidi MD; Dr. German Perera MD; Dr. Ernesto Reeves DO; Dr. Philippe Syed MD; Dr. John Calhoun MD; Dr. Selam Monique MD; Dr. Tevin Shin MD; Dr. Karma Cabrera MD; Luis Antonio Suarez MD; Darius Tapia MD; Aga Servin DO; Stan Mays MD; Sweetie Rowe DO; Gonzalo Goyal MD [facility] Work Phone: [phone]) 211-360508-13-2025 [facility] Medical Records Department [address] [place] [address] Discharge Summary 09/19/24 0941 MR#: [id number] Acct: [id number] Name: TYLOR PEDERSEN Rep #: [id number] : 1940 83 From: Trevor Burton MD PCP: Dr. Shayne Zaidi MD Status:ADM MARICARMEN Location: [place] [address] Providers Date of Admission: 09/16/24 Date of Discharge: 09/19/24 Primary Care Physician: Dr. Shayne Zaidi MD Consultations 09/17/24 10:45 neuro [Consult: Tele-Neurology] Routine Consulting Provider: [facility] Reason for Consult: acute encephalopathy EMERGENT Consult: No MD Notified: Yes Date Notified: 09/17/24 Time Notified: 11:27 Method of Notification: Answering Service Nursing Unit Staff Notify [facility] of Tele-Neurology Consult: Yes Reason For Visit: ENCEPHALOPATHY Diagnosis Discharge Diagnosis (1) Altered mental status: Status: Acute Code(s): R41.82 - Altered mental status, unspecified (2) Leukocytosis: Status: Acute Code(s): D72.829 - Elevated white blood cell count, unspecified Plan The patient is 83-year-old gentleman being admitted for confusion, talking irrelevant. As per EMS patient was been talking to family members, hallucination/delusion. He stated he felt a lot of anxiety. Patient was discharged with recent aspiration pneumonia and completed antibiotic Augmentin #1. Altered mental status/delusions/hallucination, talking irrelevant: Exact etiology unclear. MRI is ordered. CT head does not show acute intracranial abnormality. Procalcitonin normal. ABG 7.4 /120/40.2. Total bicarb 42. BMP bicarb is 35.6. High discrepancy more than 5. 09/18: Seen by neurologist. She noticed some right arm weakness and possible left ataxia which was concern for possible multiple vascular territory stroke, or delirium 09/19: Patient on baseline mental status. Acute Endolucin most likely due to delirium probably from multiple comorbidities including heart failure. #2. Chronic HFpEF with recent Acute HFpEF Exacerbation: Chest x-ray no acute finding. INR 3.1 increased to 3.4. Continue INR. Continue statin therapy, atenolol, spironolactone, Lasix regimen. IV fluid in ED discontinued most recent echocardiogram during recent admission 09/10/2024 with normal LV size, LV systolic function lower limits of normal, EF 53%, mild focal MV calcification, bileaflet, PASP 40 mmHg. 09/18: Patient does not have shortness of breath or chest pain. INR is 2.8. Resume warfarin lower dose 3 mg daily and titrate according to the INR. #3. Recent aspiration pneumonia: On oral Augmentin. Speech therapy consulted. Aspiration precaution. Continue diet adjustment with nectar thickened liquids. 09/19: Patient completed Augmentin. #4. PAF: INR supratherapeutic on atenolol. Heart rate 106. 8/32: INR 2.1. Warfarin was resumed yesterday. Continue warfarin 5 mg daily. #5. CAD: Status post previous CABG x 2 and PCI noted of the distal left main and then the circumflex artery, also saphenous vein graft to the obtuse marginal branch and ECHEVARRIA to the LAD previously noted to be patent with an occluded right coronary artery and [id number] collaterals evident. Continue baby aspirin, statin therapy, atenolol, not on ISSAC inhibitor/ARB, unclear reason. Losartan 50 mg started #6. Chronic COPD with chronic hypoxic respiratory failure: on 3 L NC home oxygen supplementation, temporarily hold home inhaler and transition interim to ATC budesonide therapy given PAF with RVR recent presentation concurrently, PRN albuterol, HOB, IS parameters. #7. Hypertension: Continue home regimen including spironolactone, Lasix, atenolol with hold parameters as needed, PRN hydralazine. #8. Hyperlipidemia: continue patient home statin therapy. #9. Hypothyroidism: continue patient on levothyroxine regimen, TSH normal. #10. Chronic neuropathy: continue patient on gabapentin regimen, low threshold to hold for sedation. 09/19: Advised to follow-up with neurologist. #11. History of CVA: Patient with history of previous strokes including left brainstem stroke, will continue to baby aspirin, Coumadin with INR trending, statin therapy, hypertensive regimen as noted. #12. Chronic Kidney Disease Stage II: Admission BUN/Cr 24/0.1, GFR 87, baseline renal function 0.6- 0.9, 09/18: Kidney function 25/0.83 normal. #13. Anxiety and depression, panic attacks: continue patient on paroxetine regimen. Administered low-dose IV Ativan in the ED however patient following as expected is somnolent thus will avoid further administration if able. #14. Obesity: Weight loss and lifestyle changes encouraged. #15. DVT prophylaxis: As mentioned above #16. CODE status: Full Code. PT and OT and physical therapy. Laboratory Results 09/18/24 06:58: WBC 11.2 H, RBC 4.29 L, Hgb 13.0, Hct 41.9, MCV 97.7 H, MCH 30.3, MCHC 31.0 L, RDW Std Deviation 49.2 H, RDW (more content not included)...[facility]08-12-2025 Progress note Author Trixie Jeronimo [facility] Note Date/Time September 18, 2024 5: 36pm [facility] Medical Records Department [address] [place] [address] Progress Note - Neurology 09/18/24 1707 MR#: [id number] Acct: [id number] Name: TYLOR PEDERSEN Rep #:[id number] : 1940 83 From: Trixie Jeronimo MD PCP: Dr. Shayne Zaidi MD Status:ADM MARICARMEN Location: [place] [address] Assessment and Plan: Neuro Assessment/Plan TYLOR PEDERSEN is a 83 M with a past medical history of Obesity, HTN, HLD, CAD s/p CABG x 2 and PCI, HFpEF, Hypothyroidism, Chronic neuropathy, CKD stage II, being evaluated by Teleneurology for confusion of unclear etiology. History is limited as unable to get additional information from the person he lives with. Exam is significant for intattention predominently but appears to have some R arm weakness and some possible L leg ataxia which is odd but localizes to possible multiple vascular territories. At this time most concerning ddx is stroke (although INR supratherapeutic) vs delirium from an unclear metabolic/infectious source (white count elevated, potentially still struggling to get over PNA). Today seems better but no family available to confirm. If patient is better, thetransient event may be related to seizure or other delirium phenomenon. If patient is not returned to normal, would evaluate for additional inflammatory orinfectious causes of symptoms Plan: - if Patient returned to baseline, no further workup at this time - if patient NOT returned to baseline, recommend MRI Brain with contrast and LP with cell count, glucose, protein, meningitis/encephalitis panel I personally attended this patient and spent a total time of 45minutes evaluating this patient including clinical assessment, review of chart, medical history imaging, and determining appropriate treatment and workup. Subject: Neurology Subjective Pt states he feels improved, states he came into the hospital because he had anxiety and didn't feel have any pills for it. Says he feels back to himself now Neurologic Exam: ? NEURO: -? Mental Status: The patient was alert but poorly oriented to time, place, and person. Unsure why in hospital, states it is every day of the week and thinks it was April. Poor attention -? Language: speech is intact.? Naming, repetition, fluency, and comprehension intact. -? Cranial Nerves: PERRL 3mm/brisk. EOMI, visual bailey full, no facial asymmetry, facial sensation intact, hearing intact, tongue midline, no evidence of atrophy or fibrillations. -? Motor: b/l UE and LE antigravity without drift -? Sensation- Intact to light touch bilaterally -? Coordination: No dysmetria on [id number], LLE ataxia -? Gait- deferred EEG Results Procedure Details EEG Procedure Details: TYLOR PEDERSEN is a 83 year old M with a past medical history of , who presents for evaluation of Electroencephalogram on DATE at TIME Objective Data Objective Data Vital Signs: Vital Signs Temp Pulse Resp BP Pulse Ox O2 Del Method O2 Flow Rate 98.1 F 96 16 107/70 96 Nasal Cannula 3 09/18/24 16:00 09/18/24 16:00 09/18/24 16:00 09/18/24 16:00 09/18/24 16:00 09/18/24 16:00 09/18/24 16:00 Oxygen Flow Rate (L/min) 3 Oxygen Delivery Method Nasal Cannula Weight: 93.4 kg Body Mass Index (BMI) 28.8 Intake & Output: Intake and Output for Last 24 Hours 09/16/24 09/17/24 09/18/24 23:59 23:59 23:59 Intake Total 347.5 / 347.5 121.25 / 121.25 878.75 / 878.75 Output Total 950 / 1250 550 / 550 Balance 347.5 / 347.5 -828.75 / -1128.75 328.75 / 328.75 Lab / Micro Data 09/18/24 06:58 09/18/24 06:58 Labs: Laboratory Results - last 24 hr 09/18/24 06:58: WBC 11.2 H, RBC 4.29 L, Hgb 13.0, Hct 41.9, MCV 97.7 H, MCH 30.3, MCHC 31.0 L, RDW Std Deviation 49.2 H, RDW Coeff of Erica 13.6, Plt Count 171, MPV 9.1, Immature Gran % (Auto) 1.600 H, Neut % (Auto) 80.5 H, Lymph % (Auto) 7.0 L, [place]ham % (Auto) 5.8, Eos % (Auto) 4.7, Baso % (Auto) 0.4, Absolute Neuts (auto) 9.0 H, Absolute Lymphs (auto) 0.78 L, Nucleated RBC % 0, PT 30.3 H,INR 2.8, Sodium 137, Potassium 4.1, Chloride 98, Carbon Dioxide 29.9, Anion Gap 9, BUN 25 H, Creatinine 0.83, Estim Creat Clear Calc 76.05, Est GFR (MDRD) Non-Af 86, BUN/Creatinine Ratio 30.5 H, Glucose 107 H, Hemoglobin A1c 5.7, Calcium 8.7, Triglycerides 89, Cholesterol 99, LDL Cholesterol, Calc 51, VLDL Cholesterol 18, HDL Cholesterol 31 L, Cholesterol/HDL Ratio 3.19, TSH 1.410 Radiography Diagnostic Testing: Radiology Impression Brain MRI 09/17/24 10:45 IMPRESSION: No acute intracranial abnormality. Reading Location: [id number] NIHSS NIHSS Nursing Documentation NIHSS Nursing Documentation: NIHSS: Ischemic Stroke/TIA Start: 09/17/24 15:57 Text: For PCU Patients: NIH and Neuro Check every 4 Status: Complete hours, PRN and with change in RN caregiver. Freq: [id number] Protocol: Activity Type Activity Date Activity User E-sign Co-sign Detail Recorded Client Recorded Date Recorded By Document 09/18/24 00:00 [id number] 09/18/24 00:07 MATTEO 09/18/24 00:00 NIH Stroke Scale [NIHSS] A score of 0 is normal or asymptomatic . Total possible score is 42. Inpatient: RN or Physician to activate a stroke alert for onset of new stroke symptoms or with NIHSS increase >/= 3 points. Following change in neurological status, NIHSS will be performed per physician order or more frequently PRN. -1a. Level of Consciousness 0 - Alert; keenly responsive -1b. LOC Questions 0 - Answers BOTH questions correctly -1c. LOC Commands 0 - Performs BOTH tasks correctly -2. Best Gaze 0 - Normal -3. Visual 0 - No visual loss -4. Facial Palsy 1 - Minor paralysis ( flattened nasolabial fold , asymmetry on smiling) -5a. Left Arm 0 - No drift; arm holds 90 ( or 45) degrees for full 10 seconds -5b. Right Arm 0 - No drift; arm holds 90 ( or 45) degrees for full 10 seconds -6a. Left Leg 0 - No drift; leg holds 30- degree position for full 5 seconds -6b. Right Leg 0 - No drift; leg holds 30- degree position for full 5 seconds -7. Limb Ataxia 0 - Absent -8. Sensory 0 - Normal; no sensory loss -9. Best Language 0 - No aphasia; normal -10. Dysarthria 1 = Mild-to- moderate dysarthria; -11. Extinction and Inattention 0 - No abnormality -Total 2 Query Text:A score of 0 is normal or asymptomatic. Total possible score is 42 . ED: Notify Physician for NIHSS increase by > / = 3 points. Inpatient: RN or Physician to activate a stroke alert for NIHSS increase of > / = 3 points. Coma Scale [Assess] -Eye Opening Spontaneous -Motor Obeys Commands -Verbal Oriented [Total] -Coma Scale Total 15 09/18/24 7236 <Electronically signed by Trixie Jeronimo MD> Cosigner Signature (if applicable): CC: ~ Signed [facility] Work Phone: 1(238) 736-202208-12-2025 Progress note [facility] Medical Records Department [address] [place] [address] Progress Note - Neurology 09/18/24 1707 MR#: [id number] Acct: [id number] Name: TYLOR PEDERSEN Rep #:[id number] : 1940 83 From: Trixie Jeronimo MD PCP: Dr. Shayne Zaidi MD Status:ADM MARICARMEN Location: [place] [address] Assessment and Plan: Neuro Assessment/Plan TYLOR PEDERSEN is a 83 M with a past medical history of Obesity, HTN, HLD, CAD s/p CABG x 2 and PCI, HFpEF, Hypothyroidism, Chronic neuropathy, CKD stage II, being evaluated by Teleneurology for confusion of unclear etiology. History is limited as unable to get additional information from the person he lives with. Exam is significant for intattention predominently but appears to have some R arm weakness and some possible L leg ataxia which is odd but localizes to possible multiple vascular territories. At this time most concerning ddx is stroke (although INR supratherapeutic) vs delirium froman unclear metabolic/infectious source (white count elevated, potentially still struggling to get over PNA). Today seems better but no family available to confirm. If patient is better, thetransient event maybe related to seizure or other delirium phenomenon. If patient is not returned to normal, would evaluate for additional inflammatory orinfectious causes of symptoms Plan: - if Patient returned to baseline, no further workup at this time - if patient NOT returned to baseline, recommend MRI Brain with contrast and LP with cell count, glucose, protein, meningitis/encephalitis panel I personally attended this patient and spent a total time of 45minutes evaluating this patient including clinical assessment, review of chart, medical history imaging, and determining appropriate treatment and workup. Subject: Neurology Subjective Pt states he feels improved, states he came into the hospital because he had anxiety and didn't feel have any pills for it. Says he feels back to himself now Neurologic Exam: ? NEURO: -? Mental Status: The patient was alert but poorly oriented to time, place, and person. Unsure why in hospital, states it is every day of the week and thinks it was April. Poor attention -? Language: speech is intact.? Naming, repetition, fluency, and comprehension intact. -? Cranial Nerves: PERRL 3mm/brisk. EOMI, visual bailey full, no facial asymmetry, facial sensation intact, hearing intact, tongue midline, no evidence of atrophy or fibrillations. -? Motor: b/l UE and LE antigravity without drift -? Sensation- Intact to light touch bilaterally -? Coordination: No dysmetria on [id number]-zijuxs, LLE ataxia -? Gait- deferred EEG Results Procedure Details EEG Procedure Details: TYLOR PEDERSEN is a 83 year old M with a past medical history of , who presents for evaluation of Electroencephalogram on DATE at TIME Objective Data Objective Data Vital Signs: Vital Signs Temp Pulse Resp BP Pulse Ox O2 Del Method O2 Flow Rate 98.1 F 96 16 107/70 96 Nasal Cannula 3 09/18/24 16:00 09/18/24 16:00 09/18/24 16:00 09/18/24 16:00 09/18/24 16:00 09/18/24 16:00 09/18/24 16:00 Oxygen Flow Rate (L/min) 3 Oxygen Delivery Method Nasal Cannula Weight: 93.4 kg Body Mass Index (BMI) 28.8 Intake & Output: Intake and Output for Last 24 Hours 09/16/24 09/17/24 09/18/24 23:59 23:59 23:59 Intake Total 347.5 / 347.5 121.25 / 121.25 878.75 / 878.75 Output Total 950 / 1250 550 / 550 Balance 347.5 / 347.5 -828.75 / -1128.75 328.75 / 328.75 Lab / Micro Data 09/18/24 06:58 09/18/24 06:58 Labs: Laboratory Results - last 24 hr 09/18/24 06:58: WBC 11.2 H, RBC 4.29 L, Hgb 13.0, Hct 41.9, MCV 97.7 H, MCH 30.3, MCHC 31.0 L, RDW Std Deviation 49.2 H, RDW Coeff of Erica 13.6, Plt Count 171, MPV 9.1, Immature Gran % (Auto) 1.600 H,Neut % (Auto) 80.5 H, Lymph % (Auto) 7.0 L, Windham % (Auto) 5.8, Eos % (Auto) 4.7, Baso % (Auto) 0.4,Absolute Neuts (auto) 9.0 H, Absolute Lymphs (auto) 0.78 L, Nucleated RBC % 0, PT 30.3 H,INR 2.8, Sodium 137, Potassium 4.1, Chloride 98, Carbon Dioxide 29.9, Anion Gap 9, BUN 25 H, Creatinine 0.83, Estim Creat Clear Calc 76.05, Est GFR (MDRD) Non-Af 86, BUN/Creatinine Ratio 30.5 H, Glucose 107 H, Hemoglobin A1c 5.7, Calcium 8.7, Triglycerides 89, Cholesterol 99, LDL Cholesterol, Calc 51, VLDL Cholesterol 18, HDL Cholesterol 31 L, Cholesterol/HDL Ratio 3.19, TSH 1.410 Radiography Diagnostic Testing: Radiology Impression Brain MRI 09/17/24 10:45 IMPRESSION: No acute intracranial abnormality. Reading Location: [facility] NIHSS NIHSS Nursing Documentation NIHSS Nursing Documentation: NIHSS: Ischemic Stroke/TIA Start: 09/17/24 15:57 Text: For PCU Patients: NIH and Neuro Check every 4 Status: Complete hours, PRN and with change in RN caregiver. Freq: [id number] Protocol: Activity Type Activity Date Activity User E-sign Co-sign Detail Recorded Client Recorded Date Recorded By Document 09/18/24 00:00 MATTEO [id number] 09/18/24 00:07 MATTEO 09/18/24 00:00 NIH Stroke Scale [NIHSS] A score of 0 is normal or asymptomatic . Total possible score is 42. Inpatient: RN or Physician to activate a stroke alert for onset of new stroke symptoms or with NIHSS increase >/= 3 points. Following change in neurological status, NIHSS will be performed per physician order or more frequently PRN. -1a. Level of Consciousness 0 - Alert; keenly responsive -1b. LOC Questions 0 - Answers BOTH questions correctly -1c. LOC Commands 0 - Performs BOTH tasks correctly -2. Best Gaze 0 - Normal -3. Visual 0 - No visual loss -4. Facial Palsy 1 - Minor paralysis ( flattened nasolabial fold , asymmetry on smiling) -5a. Left Arm 0 - No drift; arm holds 90 ( or 45) degrees for full 10 seconds -5b. Right Arm 0 - No drift; arm holds 90 ( or 45) degrees for full 10 seconds -6a. Left Leg 0 - No drift; leg holds 30- degree position for full 5 seconds -6b. Right Leg 0 - No drift; leg holds 30- degree position for full 5 seconds -7. Limb Ataxia 0 - Absent -8. Sensory 0 - Normal; no sensory loss -9. Best Language 0 - No aphasia; normal -10. Dysarthria 1 = Mild-to- moderate dysarthria; -11. Extinction and Inattention 0 - No abnormality -Total 2 Query Text:A score of 0 is normal or asymptomatic. Total possible score is 42 . ED: Notify Physician for NIHSS increase by > / = 3 points. Inpatient: RN or Physician to activate a stroke alert for NIHSS increase of > / = 3 points. Coma Scale [Assess] -Eye Opening Spontaneous -Motor Obeys Commands -Verbal Oriented [Total] -Coma Scale Total 15 09/18/24 1376 Cosigner Signature (if applicable): CC: ~ Signed [facility]08-12-2025 Telephone encounter Note* Telephone Encounter - Ge Will LPN - 09/18/2024 2:33 PM EDT Received neuro consult from [facility]. Placed in provider's inbox for review. Route to MA scanning [facility]08-12-2025 Miscellaneous Notes* Telephone Encounter - Ge Will LPN - 09/18/2024 2:33 PM EDT Received neuro consult from [facility]. Placed in provider's inbox for review. Route to MA scanning [facility] [place] Progress note Author Trevor Burton [facility] Note Date/Time September 18, 2024 12 :19pm [facility] Medical Records Department [address] [place] [address] Progress Note - Hospitalist 09/18/24 0817 MR#: [id number] Acct: [id number] Name: TYLOR PEDERSEN Rep #:[id number] : 1940 83 From: Trevor Moody PCP: Dr. Shayne Zaidi MD Status:ADM MARICARMEN Location: [place] [address] Reason for Visit Chief Complaint: Confusion Objective Data Objective Data Vital Signs: Vital Signs Temp Pulse Resp BP Pulse Ox O2 Del Method O2 Flow Rate 97.8 F 88 16 122/66 H 94 Nasal Cannula 3 09/18/24 05:41 09/18/24 05:41 09/18/24 05:41 09/18/24 05:41 09/18/24 07:55 09/18/24 07:55 09/18/24 07:55 Oxygen Flow Rate (L/min) 3 Oxygen Delivery Method Nasal Cannula Weight: 205 lb 14.588 oz Body Mass Index (BMI) 28.8 Intake & Output: Intake and Output for Last 24 Hours 09/16/24 09/17/24 09/18/24 23:59 23:59 23:59 Intake Total 347.5 / 347.5 121.25 / 121.25 Output Total 950 / 1250 550 / 550 Balance 347.5 / 347.5 -828.75 / -1128.75 -550 / -550 Lab / Micro Data 09/18/24 06:58 09/18/24 06:58 Labs: Laboratory Results - last 24 hr 09/18/24 06:58: WBC 11.2 H, RBC 4.29 L, Hgb 13.0, Hct 41.9, MCV 97.7 H, MCH 30.3, MCHC 31.0 L, RDW Std Deviation 49.2 H, RDW Coeff of Erica 13.6, Plt Count 171, MPV 9.1, Immature Gran % (Auto) 1.600 H, Neut % (Auto) 80.5 H, Lymph % (Auto) 7.0 L, Windham % (Auto) 5.8, Eos % (Auto) 4.7, Baso % (Auto) 0.4, Absolute Neuts (auto) 9.0 H, Absolute Lymphs (auto) 0.78 L, Nucleated RBC % 0, Sodium 137, Potassium 4.1, Chloride 98, Carbon Dioxide 29.9, Anion Gap 9, BUN 25 H, Creatinine 0.83, Estim Creat Clear Calc 76.05, Est GFR (MDRD) Non-Af 86, BUN/Creatinine Ratio 30.5 H, Glucose 107 H, Hemoglobin A1c 5.7, Calcium 8.7, Triglycerides 89, Cholesterol 99, LDL Cholesterol, Calc 51, VLDL Cholesterol 18,HDL Cholesterol 31 L, Cholesterol/HDL Ratio 3.19, TSH 1.410 Radiography Diagnostic Testing: Radiology Impression Brain MRI 09/17/24 10:45 IMPRESSION: No acute intracranial abnormality. Reading Location: [id number] Head/Neck CTA 09/17/24 15:00 IMPRESSION: No significant stenosis in the head and neck. No dissection. No aneurysm. Reading Location: [facility] Physical Exam Narrative Seen and examined Patient is feeling well in the morning. He woke up late after he slept well last night. Patient is hard of hearing using hearing aid . Physical exam General: Awake, alert oriented to person and place. Sometimes disoriented with time HEENT: Atraumatic, PERRLA, EOMI, Normocephalic. Oral: No Gingival or Mucosal Lesions/ Ulcerations Neck: Supple, No JVD, Negative Carotid Bruits Chest wall/Lungs: Air entry diminished in bilateral lung bases. No crepitation/rhonchi Cardiovascular: Irregular rhythm, A-fib, No M/G/R Abdomen: Bowel Sounds Present, Soft, Non Tender, Non-Distended : No dysuria. No renal angle tenderness. No suprapubic tenderness. Extremities: No edema, Capillary Refill Less than 3 Seconds Skin: No rashes, No breakdown Musculoskeletal: No Tenderness to Palpation of Joints or Extremities Neurological: Cranial nerves II-XII grossly intact, DTR 2+/4. No acute focal neurological deficit. Psych/Mental Status: Flat affect, anxious. Assessment & Plan Assessment/Plan (1) Altered mental status: (2) Leukocytosis: PLAN: Plan The patient is 83-year-old gentleman being admitted for confusion, talking irrelevant. As per EMS patient was been talking to family members, hallucination/delusion. He stated he felt a lot of anxiety. Patient was discharged with recent aspiration pneumonia and completed antibiotic Augmentin #1. Altered mental status/delusions/hallucination, talking irrelevant: Exact etiology unclear. MRI is ordered. CT head does not show acute intracranial abnormality. Procalcitonin normal. ABG 7.4 1/63/120/40.2. Total bicarb 42. BMP bicarb is 35.6. High discrepancy more than 5. 8/12: Seen by neurologist. She noticed some right arm weakness and possible left ataxia which was concern for possible multiple vascular territory stroke, or delirium #2. Chronic HFpEF with recent Acute HFpEF Exacerbation: Chest x-ray no acute finding. INR 3.1 increased to 3.4. Continue INR. Continue statin therapy, atenolol, spironolactone, Lasix regimen. IV fluid in ED discontinued most recent echocardiogram during recent admission 09/10/2024 withnormal LV size, LV systolic function lower limits of normal, EF 53%, mild focal MV calcification, bileaflet, PASP 40 mmHg. 09/18: Patient does not have shortness of breath or chest pain. INR is 2.8. Resume warfarin lower dose 3 mg daily and titrate according to the INR. #3. Recent aspiration pneumonia: On oral Augmentin. Speech therapy consulted. Aspiration precaution. Continue diet adjustment with nectar thickened liquids. #4. PAF: INR supratherapeutic on atenolol. Heart rate 106. #5. CAD: Status post previous CABG x 2 and PCI noted of the distal left main and then the circumflex artery, also saphenous vein graft to the obtuse marginalbranch and ECHEVARRIA to the LAD previously noted to be patent with an occluded right coronary artery and [id number] collaterals evident. Continue baby aspirin, statin therapy, atenolol, not on ISSAC inhibitor/ARB, unclear reason. Losartan 50mg started #6. Chronic COPD with chronic hypoxic respiratory failure: on 3 L NC home oxygen supplementation, temporarily hold home inhaler and transition interim to ATC budesonide therapy given PAF with RVR recent presentation concurrently, PRN albuterol, HOB, IS parameters. #7. Hypertension: Continue home regimen including spironolactone, Lasix, atenolol with hold parameters as needed, PRN hydralazine. #8. Hyperlipidemia: continue patient home statin therapy. #9. Hypothyroidism: continue patient on levothyroxine regimen, TSH requested. #10. Chronic neuropathy: continue patient on gabapentin regimen, low threshold to hold for sedation. #11. History of CVA: Patient with history of previous strokes including left brainstem stroke, will continue to baby aspirin, Coumadin with INR trending, statin therapy, hypertensive regimen as noted. #12. Chronic Kidney Disease Stage II: Admission BUN/Cr 24/0.1, GFR 87, baselinerenal function 0.6-0.9, 09/18: Kidney function 25/0.83 normal. #13. Anxiety and depression, panic attacks: continue patient on paroxetine regimen. Administered low-dose IV Ativan in the ED however patient following asexpected is somnolent thus will avoid further administration if able. #14. Obesity: Weight loss and lifestyle changes encouraged. #15. DVT prophylaxis: As mentioned above #16. CODE status: Full Code. PT and OT and physical therapy. Laboratory Results 09/18/24 06:58: WBC 11.2 H, RBC 4.29 L, Hgb 13.0, Hct 41.9, MCV 97.7 H, MCH 30.3, MCHC 31.0 L, RDW Std Deviation 49.2 H, RDW Coeff of Erica 13.6, Plt Count 171, MPV 9.1, Immature Gran % (Auto) 1.600 H, Neut % (Auto) 80.5 H, Lymph % (Auto) 7.0 L, Windham % (Auto) 5.8, Eos % (Auto) 4.7, Baso % (Auto) 0.4, Absolute Neuts (auto) 9.0 H, Absolute Lymphs (auto) 0.78 L, Nucleated RBC % 0, PT 30.3 H,INR 2.8, Sodium 137, Potassium 4.1, Chloride 98, Carbon Dioxide 29.9, Anion Gap 9, BUN 25 H, Creatinine 0.83, Estim Creat Clear Calc 76.05, Est GFR (MDRD) Non-Af 86, BUN/Creatinine Ratio 30.5 H, Glucose 107 H, Hemoglobin A1c 5.7, Calcium 8.7, Triglycerides 89, Cholesterol 99, LDL Cholesterol, Calc 51, VLDL Cholesterol 18, HDL Cholesterol 31 L, Cholesterol/HDL Ratio 3.19, TSH 1.410 Charges/Coding Visit Charges Inpatient E&M: 11104 Subs Hosp L2 NIHSS NIHSS Nursing Documentation NIHSS Nursing Documentation: NIHSS: Ischemic Stroke/TIA Start: 09/17/24 15:57 Text: For PCU Patients: NIH and Neuro Check every 4 Status: Complete hours, PRN and with change in RN caregiver. Freq: [id number] Protocol: Activity Type Activity Date Activity User E-sign Co-sign Detail Recorded Client Recorded Date Recorded By Document 09/18/24 00:00 MATTEO [id number] 09/18/24 00:07 MATTEO 09/18/24 00:00 NIH Stroke Scale [NIHSS] A score of 0 is normal or asymptomatic . Total possible score is 42. Inpatient: RN or Physician to activate a stroke alert for onset of new stroke symptoms or with NIHSS increase >/= 3 points. Following change in neurological status, NIHSS will be performed per physician order or more frequently PRN. -1a. Level of Consciousness 0 - Alert; keenly responsive -1b. LOC Questions 0 - Answers BOTH questions correctly -1c. LOC Commands 0 - Performs BOTH tasks correctly -2. Best Gaze 0 - Normal -3. Visual 0 - No visual loss -4. Facial Palsy 1 - Minor paralysis ( flattened nasolabial fold , asymmetry on smiling) -5a. Left Arm 0 - No drift; arm holds 90 ( or 45) degrees for full 10 seconds -5b. Right Arm 0 - No drift; arm holds 90 ( or 45) degrees for full 10 seconds -6a. Left Leg 0 - No drift; leg holds 30- degree position for full 5 seconds -6b. Right Leg 0 - No drift; leg holds 30- degree position for full 5 seconds -7. Limb Ataxia 0 - Absent -8. Sensory 0 - Normal; no sensory loss -9. Best Language 0 - No aphasia; normal -10. Dysarthria 1 = Mild-to- moderate dysarthria; -11. Extinction and Inattention 0 - No abnormality -Total 2 Query Text:A score of 0 is normal or asymptomatic. Total possible score is 42 . ED: Notify Physician for NIHSS increase by > / = 3 points. Inpatient: RN or Physician to activate a stroke alert for NIHSS increase of > / = 3 points. Coma Scale [Assess] -Eye Opening Spontaneous -Motor Obeys Commands -Verbal Oriented [Total] -Coma Scale Total 15 09/18/24 1219 <Electronically signed by Trevor Burton MD> Cosigner Signature (if applicable): CC: ~ Signed [facility] Work Phone: [phone]) 866-561308-12-2025 Progress note [facility] Medical Records Department [address] [place] [address] Progress Note - Hospitalist 09/18/24816 MR#: [id number] Acct: [id number] Name: TYLOR PEDERSEN Rep #:[id number] : 1940 83 From: Trevor Moody PCP: Dr. Shayne Zaidi MD Status:ADM MARICARMEN Location: [place] [address] Reason for Visit Chief Complaint: Confusion Objective Data Objective Data Vital Signs: Vital Signs Temp Pulse Resp BP Pulse Ox O2 Del Method O2 Flow Rate 97.8 F 88 16 122/66 H 94 Nasal Cannula 3 09/18/24 05:41 09/18/24 05:41 09/18/24 05:41 09/18/24 05:41 09/18/24 07:55 09/18/24 07:55 09/18/24 07:55 Oxygen Flow Rate (L/min) 3 Oxygen Delivery Method Nasal Cannula Weight: 205 lb 14.588 oz Body Mass Index (BMI) 28.8 Intake & Output: Intake and Output for Last 24 Hours 09/16/24 09/17/24 09/18/24 23:59 23:59 23:59 Intake Total 347.5 / 347.5 121.25 / 121.25 Output Total 950 / 1250 550 / 550 Balance 347.5 / 347.5 -828.75 / -1128.75 -550 / -550 Lab / Micro Data 09/18/24 06:58 09/18/24 06:58 Labs: Laboratory Results - last 24 hr 09/18/24 06:58: WBC 11.2 H, RBC 4.29 L, Hgb 13.0, Hct 41.9, MCV 97.7 H, MCH 30.3, MCHC 31.0 L, RDW Std Deviation 49.2 H, RDW Coeff of Erica 13.6, Plt Count 171, MPV 9.1, Immature Gran % (Auto) 1.600 H,Neut % (Auto) 80.5 H, Lymph % (Auto) 7.0 L, Windham % (Auto) 5.8, Eos % (Auto) 4.7, Baso % (Auto) 0.4,Absolute Neuts (auto) 9.0 H, Absolute Lymphs (auto) 0.78 L, Nucleated RBC % 0, Sodium 137, Potassium 4.1, Chloride 98, Carbon Dioxide 29.9, Anion Gap 9, BUN 25 H, Creatinine 0.83, Estim Creat Clear Calc 76.05, Est GFR (MDRD) Non-Af 86, BUN/Creatinine Ratio 30.5 H, Glucose 107 H, Hemoglobin A1c 5.7,Calcium 8.7, Triglycerides 89, Cholesterol 99, LDL Cholesterol, Calc 51, VLDL Cholesterol 18,HDL Cholesterol 31 L, Cholesterol/HDL Ratio 3.19, TSH 1.410 Radiography Diagnostic Testing: Radiology Impression Brain MRI 09/17/24 10:45 IMPRESSION: No acute intracranial abnormality. Reading Location: [id number] Head/Neck CTA 09/17/24 15:00 IMPRESSION: No significant stenosis in the head and neck. No dissection. No aneurysm. Reading Location: [facility] Physical Exam Narrative Seen and examined Patient is feeling well in the morning. He woke up late after he slept well last night. Patient is hard of hearing using hearing aid . Physical exam General: Awake, alert oriented to person and place. Sometimes disoriented with time HEENT: Atraumatic, PERRLA, EOMI, Normocephalic. Oral: No Gingival or Mucosal Lesions/ Ulcerations Neck: Supple, No JVD, Negative Carotid Bruits Chest wall/Lungs: Air entry diminished in bilateral lung bases. No crepitation/rhonchi Cardiovascular: Irregular rhythm, A-fib, No M/G/R Abdomen: Bowel Sounds Present, Soft, Non Tender, Non-Distended : No dysuria. No renal angle tenderness. No suprapubic tenderness. Extremities: No edema, Capillary Refill Less than 3 Seconds Skin: No rashes, No breakdown Musculoskeletal: No Tenderness to Palpation of Joints or Extremities Neurological: Cranial nerves II-XII grossly intact, DTR 2+/4. No acute focal neurological deficit. Psych/Mental Status: Flat affect, anxious. Assessment & Plan Assessment/Plan (1) Altered mental status: (2) Leukocytosis: PLAN: Plan The patient is 83-year-old gentleman being admitted for confusion, talking irrelevant. As per EMS patient was been talking to family members, hallucination/delusion. He stated he felt a lot of anxiety. Patient was discharged with recent aspiration pneumonia and completed antibiotic Augmentin #1. Altered mental status/delusions/hallucination, talking irrelevant: Exact etiology unclear. MRI is ordered. CT head does not show acute intracranial abnormality. Procalcitonin normal. ABG 7.4 1/63/120/40.2. Total bicarb 42. BMP bicarb is 35.6. High discrepancy more than 5. 8/12: Seen by neurologist. She noticed some right arm weakness and possible left ataxia which was concern for possible multiple vascular territory stroke, or delirium #2. Chronic HFpEF with recent Acute HFpEF Exacerbation: Chest x-ray no acute finding. INR 3.1 increased to 3.4. Continue INR. Continue statin therapy, atenolol, spironolactone, Lasix regimen. IV fluid in ED discontinued most recent echocardiogram during recent admission 09/10/2024 withnormal LV size, LV systolic function lower limits of normal, EF 53%, mild focal MV calcification, bileaflet, PASP 40 mmHg. 09/18: Patient does not have shortness of breath or chest pain. INR is 2.8. Resume warfarin lower dose 3 mg daily and titrate according to the INR. #3. Recent aspiration pneumonia: On oral Augmentin. Speech therapy consulted. Aspiration precaution. Continue diet adjustment with nectar thickened liquids. #4. PAF: INR supratherapeutic on atenolol. Heart rate 106. #5. CAD: Status post previous CABG x 2 and PCI noted of the distal left main and then the circumflex artery, also saphenous vein graft to the obtuse marginalbranch and ECHEVARRIA to the LAD previously noted to be patent with an occluded right coronary artery and [id number] collaterals evident. Continue baby aspirin, statin therapy, atenolol, not on ISSAC inhibitor/ARB, unclear reason. Losartan 50mg started #6. Chronic COPD with chronic hypoxic respiratory failure: on 3 L NC home oxygen supplementation, temporarily hold home inhaler and transition interim to ATC budesonide therapy given PAF with RVR recent presentation concurrently, PRN albuterol, HOB, IS parameters. #7. Hypertension: Continue home regimen including spironolactone, Lasix, atenolol with hold parameters as needed, PRN hydralazine. #8. Hyperlipidemia: continue patient home statin therapy. #9. Hypothyroidism: continue patient on levothyroxine regimen, TSH requested. #10. Chronic neuropathy: continue patient on gabapentin regimen, low threshold to hold for sedation. #11. History of CVA: Patient with history of previous strokes including left brainstem stroke, willcontinue to baby aspirin, Coumadin with INR trending, statin therapy, hypertensive regimen as noted. #12. Chronic Kidney Disease Stage II: Admission BUN/Cr 24/0.1, GFR 87, baselinerenal function 0.6-0.9, 09/18: Kidney function 25/0.83 normal. #13. Anxiety and depression, panic attacks: continue patient on paroxetine regimen. Administered low-dose IV Ativan in the ED however patient following asexpected is somnolent thus will avoid furtheradministration if able. #14. Obesity: Weight loss and lifestyle changes encouraged. #15. DVT prophylaxis: As mentioned above #16. CODE status: Full Code. PT and OT and physical therapy. Laboratory Results 09/18/24 06:58: WBC 11.2 H, RBC 4.29 L, Hgb 13.0, Hct 41.9, MCV 97.7 H, MCH 30.3, MCHC 31.0 L, RDW Std Deviation 49.2 H, RDW Coeff of Erica 13.6, Plt Count 171, MPV 9.1, Immature Gran % (Auto) 1.600 H,Neut % (Auto) 80.5 H, Lymph % (Auto) 7.0 L, Windham % (Auto) 5.8, Eos % (Auto) 4.7, Baso % (Auto) 0.4,Absolute Neuts (auto) 9.0 H, Absolute Lymphs (auto) 0.78 L, Nucleated RBC % 0, PT 30.3 H,INR 2.8, Sodium 137, Potassium 4.1, Chloride 98, Carbon Dioxide 29.9, Anion Gap 9, BUN 25 H, Creatinine 0.83, Estim Creat Clear Calc 76.05, Est GFR (MDRD) Non-Af 86, BUN/Creatinine Ratio 30.5 H, Glucose 107 H, Hemoglobin A1c 5.7, Calcium 8.7, Triglycerides 89, Cholesterol 99, LDL Cholesterol, Calc 51, VLDL Cholesterol 18, HDL Cholesterol 31 L, Cholesterol/HDL Ratio 3.19, TSH 1.410 Charges/Coding Visit Charges Inpatient E&M: 03326 Subs Hosp L2 NIHSS NIHSS Nursing Documentation NIHSS Nursing Documentation: NIHSS: Ischemic Stroke/TIA Start: 09/17/24 15:57 Text: For PCU Patients: NIH and Neuro Check every 4 Status: Complete hours, PRN and with change in RN caregiver. Freq: [id number] Protocol: Activity Type Activity Date Activity User E-sign Co-sign Detail Recorded Client Recorded Date Recorded By Document 09/18/24 00:00 MATTEO [id number] 09/18/24 00:07 JG 09/18/24 00:00 NIH Stroke Scale [NIHSS] A score of 0 is normal or asymptomatic . Total possible score is 42. Inpatient: RN or Physician to activate a stroke alert for onset of new stroke symptoms or with NIHSS increase >/= 3 points. Following change in neurological status, NIHSS will be performed per physician order or more frequently PRN. -1a. Level of Consciousness 0 - Alert; keenly responsive -1b. LOC Questions 0 - Answers BOTH questions correctly -1c. LOC Commands 0 - Performs BOTH tasks correctly -2. Best Gaze 0 - Normal -3. Visual 0 - No visual loss -4. Facial Palsy 1 - Minor paralysis ( flattened nasolabial fold , asymmetry on smiling) -5a. Left Arm 0 - No drift; arm holds 90 ( or 45) degrees for full 10 seconds -5b. Right Arm 0 - No drift; arm holds 90 ( or 45) degrees for full 10 seconds -6a. Left Leg 0 - No drift; leg holds 30- degree position for full 5 seconds -6b. Right Leg 0 - No drift; leg holds 30- degree position for full 5 seconds -7. Limb Ataxia 0 - Absent -8. Sensory 0 - Normal; no sensory loss -9. Best Language 0 - No aphasia; normal -10. Dysarthria 1 = Mild-to- moderate dysarthria; -11. Extinction and Inattention 0 - No abnormality -Total 2 Query Text:A score of 0 is normal or asymptomatic. Total possible score is 42 . ED: Notify Physician for NIHSS increase by > / = 3 points. Inpatient: RN or Physician to activate a stroke alert for NIHSS increase of > / = 3 points. Coma Scale [Assess] -Eye Opening Spontaneous -Motor Obeys Commands -Verbal Oriented [Total] -Coma Scale Total 15 09/18/24 1219 Cosigner Signature (if applicable): CC: ~ Signed [facility]08-12-2025 Consult note Author Trixie Jeronimo [facility] Note Date/Time September 18, 2024 7: 28am [facility] Medical Records Department [address] [place] [address] Consultation - Neurology 09/17/24 1212 MR#: [id number] Acct: [id number] Name: TYLOR PEDERSEN Rep #:[id number] : 1940 83 From: Trixie Jeronimo MD PCP: Dr. Shayne Zaidi MD Status:ADM MARICARMEN Location: [place] [address] Assessment and Plan: Neuro Assessment/Plan TYLOR PEDERSEN is a 83 M with a past medical history of , being evaluated by Teleneurology for confusion of unclear etiology. History is limited as unable toget additional information from the person he lives with. Exam is significant for intattention predominently but appears to have some R arm weakness and some possible L leg ataxia which is odd but localizes to possible multiple vascular territories. At this time most concerning ddx is stroke (although INR supratherapeutic) vs delirium from an unclear metabolic/infectious source (whitecount elevated, potentially still struggling to get over PNA). Plan: - agree with MRI Brain - delirium precautions I personally attended this patient and spent a total time of 45minutes evaluating this patient including clinical assessment, review of chart, medical history imaging, and determining appropriate treatment and workup. HPI Consult Data Date of Consult: 09/18/24 HPI Narrative HPI Narrative: The patient is an 83 y/o M w/ PMHx: Obesity, HTN, HLD, CAD s/p CABG x 2 and PCI,HFpEF, Hypothyroidism, Chronic neuropathy, CKD stage II per GFR trending, Hx CVA, Anxiety and Depression/Panic attacks, recent discharge 09/12/24 following evaluation and treatment of chronic hypoxic respiratory failure secondary to acute HFrEF exacerbation in addition to aspiration pneumonia discharged on Augmentin as well as PAF with RVR with atenolol increased by cardiology during previous evaluation and continuation of patient Coumadin with INR trending to now re-presents to the [facility] ED on 09/16/2024 with history of reported confusion that started the evening prior with family noting concern for hallucinations with patient upon arrival not understanding why he was brought to the ED but noting he is very anxious and requesting medication Neurologic History Patient states hs is not sure what is happening or why he is in the hospital. Does not know date or time. Per daughter in law who walked in, he has been a little more confused for several days but unclear what exact timeline. Unclear to her what the hallucinations are but states that typically he knows where he is and lives with a friend. The friend is concerned as well. She is not clear ifthere has been a change in his medications. Neurologic Exam: -? General: Laying comfortably in bed; in no acute distress. -? HENT: Normal oropharynx and mucosa. Normal external appearance of ears and nose. Exophthalmos. -? Neck: Supple, no pain or tenderness -? CV:? No peripheral edema. -? Pulmonary:? Normal respiratory effort. -? Ext: No cyanosis, edema, or deformity -? Skin: No rash. Normal palpation of skin.? -? Musculoskeletal: full range of motion; no joint tenderness. Normal digits and nails by inspection. No clubbing. -? NEURO: -? Mental Status: The patient was alert but poorly oriented to time, place, and person. Unsure why in hospital, states it is every day of the week and thinks it was April. Poor attention -? Language: speech is intact.? Naming, repetition, fluency, and comprehension intact. -? Cranial Nerves: PERRL 3mm/brisk. EOMI, visual bailey full, no facial asymmetry, facial sensation intact, hearing intact, tongue midline, no evidence of atrophy or fibrillations. -? Motor: RUE drift Difficulty with following commands to do formal strength testing but fights the providers -? Sensation- Intact to light touch bilaterally -? Coordination: No dysmetria on [id number], LLE ataxia -? Gait- deferred [facility] Medical History Atherosclerosis of coronary artery of [place] heart without angina pectoris Prostate CA Stroke [...] PO DAILY@0800 heal th 12/14/21 12/14/21 History potassium chloride 10 mEq 20 meq PO DAILY supplement 1 02/13/21 12/14/21 History tablet,extended release albuterol sulfate 90 mcg/actuation 2 puff inhalation Q 4H PRN PRN 03/15/23 Unknown Rx aerosol inhaler (Ventolin HFA) Wheezing ##1 fluticasone 250 mcg-salmeterol 50 1 inh inhalation Q12 H 09/10/24 Unknown History mcg/dose blistr powdr for inhalation gabapentin 300 mg capsule 300 mg PO BID 09/10/24 Unkno wn History nitroglycerin 0.3 mg sublingual 0.3 mg sublingual Q5M PRN chest 09/10/24 Unknown History tablet pain paroxetine HCl 40 mg tablet 40 mg PO DAILY 09/10/24 Un known History amoxicillin 875 mg-potassium 1 tab PO BIDCM #11 tabs 0 09/12/24 Unknown Rx clavulanate 125 mg tablet atenolol 50 mg tablet 50 mg PO DAILY #30 tabs 08/01 Unknown Rx furosemide 40 mg tablet (Lasix) 40 mg PO BID #60 tabs 09/12/24 Unknown Rx warfarin 2.5 mg tablet (Jantoven) 5 mg (2 x 2.5 mg) PO 1700 #60 tabs 09/12/24 Unknown Rx Allergy/AdvReac Type Severity Reaction Status Date / Time oxycodone (From Percodan) Allergy Other Verified 09/16/24 18:21 Surgical History History of coronary artery stent placement (12/16/21) Cataract extraction status History of hip replacement History of open heart surgery Social History (Updated 09/16/24 @ 21:[address] Olivia Walters MD) household members: family Smoking Status: Former smoker quit date: 02/08/92 pack-years: 37 Tobacco: How many years used: 20 alcohol intake: never substance use type: does not use Vital Signs Vital Signs Vital Signs: 09/16/24 18:21 09/16/24 18:27 09/16/24 18:31 Temperature 97.7 F L 98.2 F Temperature Source Temporal Oral Pulse Rate 95 100 Pulse Strength Respiratory Rate 14 22 H Respiratory Effort Respiratory Depth Respiratory Pattern Normal Blood Pressure 122/72 H 133/74 H Blood Pressure Mean 88 93 Pulse Ox 97 95 Oxygen Delivery Method Nasal Cannula Nasal Cannula Oxygen Flow Rate (L/min) 4 2 09/16/24 19:31 09/16/24 20:00 09/16/24 20:50 Temperature 98.3 F 98.7 F 98.7 F Temperature Source Oral Oral Pulse Rate 90 90 90 Pulse Strength Respiratory Rate 18 18 18 Respiratory Effort Respiratory Depth Respiratory Pattern Blood Pressure 140/87 H 146/70 H 146/70 H Blood Pressure Mean 104 95 95 Pulse Ox 98 98 98 Oxygen Delivery Method Room Air Room Air Oxygen Flow Rate (L/min) 09/16/24 21:00 09/16/24 22:10 09/16/24 22:35 Temperature 98.3 F 97.8 F Temperature Source Oral Temporal Pulse Rate 100 88 Pulse Strength Respiratory Rate 20 H 18 Respiratory Effort Normal Non-Labored Respiratory Depth Normal Respiratory Pattern Normal Blood Pressure 149/72 H 138/78 H Blood Pressure Mean 97 98 Pulse Ox 98 94 Oxygen Delivery Method Room Air Nasal Cannula Nasal Cannula Oxygen Flow Rate (L/min) 3 3 09/16/24 22:58 09/16/24 23:03 09/17/24 02:15 Temperature 97.6 F L Temperature Source Temporal Pulse Rate 106 H Pulse Strength Respiratory Rate 18 Respiratory Effort Respiratory Depth Respiratory Pattern Blood Pressure 156/97 H Blood Pressure Mean 116 Pulse Ox 94 95 Oxygen Delivery Method Nasal Cannula Nasal Cannula Nasal Cannula Oxygen Flow Rate (L/min) 1.5 1.5 1.5 09/17/24 02:17 09/17/24 06:50 09/17/24 08:49 Temperature Temperature Source Pulse Rate Pulse Strength Respiratory Rate Respiratory Effort Normal Non-Labored Respiratory Depth Normal Respiratory Pattern Normal Blood Pressure Blood Pressure Mean Pulse Ox 86 Oxygen Delivery Method Nasal Cannula Nasal Cannula Oxygen Flow Rate (L/min) 2 09/17/24 08:49 09/17/24 08:53 09/17/24 09:06 Temperature 98.2 F Temperature Source Oral Pulse Rate 106 H Pulse Strength Weak (1+) Respiratory Rate 18 Respiratory Effort Normal Non-Labored Respiratory Depth Normal Respiratory Pattern Normal Blood Pressure 139/87 H Blood Pressure Mean 104 Pulse Ox 96 Oxygen Delivery Method Nasal Cannula Nasal Cannula Oxygen Flow Rate (L/min) 3 3 09/17/24 11:29 09/17/24 11:30 Temperature Temperature Source Pulse Rate Pulse Strength Respiratory Rate Respiratory Effort Respiratory Depth Respiratory Pattern Blood Pressure Blood Pressure Mean Pulse Ox Oxygen Delivery Method Oxygen Flow Rate (L/min) 2 3 Weight Weight: 91.5 kg Body Mass Index (BMI) 28.2 EEG Results Procedure Details EEG Procedure Details: TYLOR PEDERSEN is a 83 year old M with a past medical history of , who presents for evaluation of Electroencephalogram on DATE at TIME Lab / Micro Data 09/18/24 06:58 09/17/24 01:53 Labs: Laboratory Results - last 24 hr 09/16/24 18:25: WBC 18.0 H, RBC 4.62, Hgb 13.9, Hct 44.0, MCV 95.2 H, MCH 30.1, MCHC 31.6 L, RDW Std Deviation 46.3 H, RDW Coeff of Erica 13.2, Plt Count 201, MPV9.1, Immature Gran % (Auto) 1.800 H, Neut % (Auto) 85.4 H, Lymph % (Auto) 4.6 L,[place] % (Auto) 4.1, Eos % (Auto) 3.7, Baso % (Auto) 0.4, Absolute Neuts (auto) 15.3 H, Absolute Lymphs (auto) 0.83, Nucleated RBC % 0, PT 32.4 H, INR 3.1, Sodium 138, Potassium 4.6, Chloride 93 L, Carbon Dioxide 35.6 H, Anion Gap 9, BUN 24 H, Creatinine 0.81, Estim Creat Clear Calc 80.91, Est GFR (MDRD) Non-Af 87, BUN/Creatinine Ratio 29.2 H, Glucose 112 H, Calcium 9.3, Magnesium 2.3 H, Procalcitonin 0.09 09/16/24 19:38: Urine Color Yellow, Urine Clarity Clear, Urine pH 7.0, Ur Specific [place] 1.010, Urine Protein 30 H, Urine Glucose (UA) Normal, Urine Ketones Negative, Urine Occult Blood 250 H, Urine Nitrite Negative, Urine Bilirubin Negative, Urine Urobilinogen 4 H, Ur Leukocyte Esterase 25 H, Urine RBC 5-10 SEEN, Urine WBC 0-5 SEEN, Ur Squamous Epith Cells 0-5 SEEN, Urine Bacteria 1+, Hyaline Casts 10-25 SEEN, Urine Mucus 0 SEEN 09/16/24 22:15: Ammonia 31.9, Troponin T High Sens 12 D 09/17/24 00:25: Troponin T Hi Sens 2 Hr 13 09/17/24 01:53: WBC 16.9 H, RBC 4.50 L, Hgb 13.5, Hct 42.9, MCV 95.3 H, MCH 30.0, MCHC 31.5 L, RDW Std Deviation 46.6 H, RDW Coeff of Erica 13.2, Plt Count 177, MPV 9.1, Immature Gran % (Auto) 1.700 H, Neut % (Auto) 85.0 H, Lymph % (Auto) 4.6 L, [place] % (Auto) 4.8, Eos % (Auto) 3.5, Baso % (Auto) 0.4, Absolute Neuts (auto) 14.3 H, Absolute Lymphs (auto) 0.78 L, Nucleated RBC % 0, PT 35.1 H, INR 3.4, Sodium 138, Potassium 4.4, Chloride 93 L, Carbon Dioxide 33.0 H, Anion Gap 11, BUN 25 H, Creatinine 0.77, Estim Creat Clear Calc 78.17, Est GFR (MDRD) Non-Af 88, BUN/Creatinine Ratio 31.7 H, Glucose 106 H, Calcium 9.2, TotalBilirubin 0.75, AST 21, ALT 26, Alkaline Phosphatase 131 H, Troponin T Hi Sens 4Hr 14, Total Protein 6.7, Albumin 3.6, Globulin 3.1, Albumin/Globulin Ratio 1.2, TSH 2.330 ABG Data ABG results: ABG 09/16/24 22:52 Specimen Type ART Sample Site R Radial pH 7.41 Bicarbonate Actual 40.2 H Total CO2 42 Base Excess 16 H O2 Saturation 99 O2 % 3.0 ABG pCO2 63.2 H ABG pO2 120 H Josef Test Positive O2 Delivery Device Cannula Vent Mode Not entered Imaging Radiology Impression Brain CT 09/16/24 18:50 IMPRESSION: No acute intracranial finding. Reading Location: [facility] Chest X-Ray 09/16/24 20:10 IMPRESSION: No Acute Findings. Reading [facility] Active Medications Active Medications Active Medications: Current Medications Generic Name Dose Route Start Last Admin Trade Name Freq PRN Reason Stop Dose Admin Acetaminophen 650 mg 09/16/24 21:48 Acetaminophen 325 Mg Tablet PO Q4H PRN PRN Fever, pain 1-10/10 Acetaminophen 650 mg 09/16/24 21:48 Acetaminophen 650 Mg Suppository RC Q4H PRN PRN Fever, pain 1-10 Al Hydroxide/Mg Hydroxide 30 ml 09/16/24 21:48 Mag Hydrox/Al Hydrox/Simeth 30 Ml Udc PO Q6H PRN PRN Gastric Burning Albuterol Sulfate 2.5 mg 09/16/24 21:48 Albuterol 2.5 Mg/3 Ml Vial.Neb. INHALATION Q2H PRN PRN Dyspnea, wheezing Amoxicillin/Clavulanate Potassium 875 mg 09/16/24 21:48 09/17/24 09:00 Amox/Clavulanate 875 Mg Tablet PO 875 mg BIDCM FRANNY Administration Aspirin 81 mg 09/17/24 08:00 09/17/24 09:01 Aspirin 81 Mg Tab.Chew PO 81 mg BREAKFAST FRANNY Administration Atenolol 50 mg 09/17/24 10:00 09/17/24 09:00 Atenolol 50 Mg Tablet PO 50 mg DAILY FRANNY Administration Protocol Atorvastatin Calcium 40 mg 09/16/24 22:00 09/17/24 00:29 Atorvastatin Calcium 40 Mg Tablet PO Not Given QHS FRANNY Budesonide 0.5 mg 09/16/24 21:48 Budesonide Respules 0.5 Mg/2 Ml Ampul.Neb. INHALATION BID.RT FRANNY Furosemide 40 mg 09/16/24 22:00 09/17/24 09:01 Furosemide 40 Mg Tablet PO 40 mg BID FRANNY Administration Protocol Gabapentin 300 mg 09/16/24 22:00 09/17/24 09:00 Gabapentin 300 Mg Capsule PO 300 mg BID FRANNY Administration Guaifenesin 20 ml 09/16/24 21:48 Guaifenesin 10 Ml Udc (200mg/10ml) PO Q4H PRN PRN COUGH Hydralazine HCl 10 mg 09/16/24 21:48 Hydralazine 20 Mg/Ml Vial IV Q4H PRN PRN SBP > 180 Protocol Sodium Chloride 250 mls @ 15 mls/hr 09/16/24 22:07 IV .[id number] PRN Saline Flush Sodium Chloride 250 mls @ 15 mls/hr 09/16/24 22:07 IV .[id number] PRN Additional IVPB Infusion Levothyroxine Sodium 50 mcg 09/17/24 06:00 09/17/24 01:21 Levothyroxine 50 Mcg Tablet PO Not Given DAILY@0600 [facility] Losartan Potassium 50 mg 09/17/24 10:00 09/17/24 09:00 Losartan Potassium 50 Mg Tablet PO 50 mg DAILY FRANNY Administration Protocol Melatonin 3 mg 09/16/24 21:48 Melatonin 3 Mg Tablet PO QHS PRN PRN INSOMNIA Nitroglycerin 0.4 mg 09/17/24 00:10 Nitroglycerin (Inpatient Use) 0.4 Mg Tab.Subl SL Q5M PRN CARDIAC/CHEST PAIN Ondansetron HCl 4 mg 09/16/24 21:48 Ondansetron 4 Mg/2 Ml Vial IV Q8H PRN PRN NAUSEA/VOMITING Paroxetine HCl 40 mg 09/17/24 10:00 09/17/24 09:00 Paroxetine 20 Mg Tablet PO 40 mg DAILY FRANNY Administration Potassium Chloride 20 meq 09/17/24 10:00 09/17/24 09:00 Potassium Chloride Oral Tablet 20 Meq PO 20 meq DAILY FRANNY Administration Senna/Docusate Sodium 2 tablet 09/16/24 21:48 Senna/Docusate Sodium 1 Tablet PO BID PRN PRN Constipation Sodium Chloride 10 - 40 ml 09/16/24 22:07 0.9% Saline Lock 10 Ml Syringe IV UD PRN SALINE FLUSH Spironolactone 25 mg 09/17/24 10:00 09/17/24 09:01 Spironolactone 25 Mg Tablet PO 25 mg DAILY FRANNY Administration Protocol Warfarin Sodium 5 mg 09/17/24 17:00 Warfarin 5 Mg Tablet PO 1700 FRANNY 09/18/24 0728 <Electronically signed by Trixie Jeronimo MD> Cosigner Signature (if applicable): CC: Dr. Shayne Zaidi MD~ Signed [facility] Work Phone: [phone] Consult note [facility] Medical Records Department [address] [place] [address] Consultation - Neurology 09/17/24 1212 MR#: [id number] Acct: [id number] Name: TYLOR PEDERSEN Rep #:[id number] : 1940 83 From: Trixie Jeronimo MD PCP: Dr. Shayne Zaidi MD Status:ADM MARICARMEN Location: [place] [address] Assessment and Plan: Neuro Assessment/Plan TYLOR PEDERSEN is a 83 M with a past medical history of , being evaluated by Teleneurology for confusion of unclear etiology. History is limited as unable toget additional information from the person he lives with. Exam is significant for intattention predominently but appears to have some R armweakness and some possible L leg ataxia which is odd but localizes to possible multiple vascular territories. At this time most concerning ddx is stroke (although INR supratherapeutic) vs delirium from an unclear metabolic/infectious source (whitecount elevated, potentially still struggling to get over PNA). Plan: - agree with MRI Brain - delirium precautions I personally attended this patient and spent a total time of 45minutes evaluating this patient including clinical assessment, review of chart, medical history imaging, and determining appropriate treatment and workup. HPI Consult Data Date of Consult: 09/18/24 HPI Narrative HPI Narrative: The patient is an 83 y/o M w/ PMHx: Obesity, HTN, HLD, CAD s/p CABG x 2 and PCI,HFpEF, Hypothyroidism, Chronic neuropathy, CKD stage II per GFR trending, Hx CVA, Anxiety and Depression/Panic attacks,recent discharge 09/12/24 following evaluation and treatment of chronic hypoxic respiratory failure secondary to acute HFrEF exacerbation in addition to aspiration pneumonia discharged on Augmentin as well as PAF with RVR with atenolol increased by cardiology during previous evaluation and continuation of patient Coumadin with INR trending to now re-presents to the [facility] ED on 09/16/2024 with history of reported confusion that started the evening prior with family noting concern for hallucinations with patient upon arrival not understanding why he was brought to the ED but noting he is very anxious and requesting medication Neurologic History Patient states hs is not sure what is happening or why he is in the hospital. Does not know date ortime. Per daughter in law who walked in, he has been a little more confused for several days but unclear what exact timeline. Unclear to her what the hallucinations are but states that typically he knows where he is and lives with a friend. The friend is concerned as well. She is not clear ifthere has been a change in his medications. Neurologic Exam: -? General: Laying comfortably in bed; in no acute distress. -? HENT: Normal oropharynx and mucosa. Normal external appearance of ears and nose. Exophthalmos. -? Neck: Supple, no pain or tenderness -? CV:? No peripheral edema. -? Pulmonary:? Normal respiratory effort. -? Ext: No cyanosis, edema, or deformity -? Skin: No rash. Normal palpation of skin.? -? Musculoskeletal: full range of motion; no joint tenderness. Normal digits and nails by inspection. No clubbing. -? NEURO: -? Mental Status: The patient was alert but poorly oriented to time, place, and person. Unsure why in hospital, states it is every day of the week and thinks it was April. Poor attention -? Language: speech is intact.? Naming, repetition, fluency, and comprehension intact. -? Cranial Nerves: PERRL 3mm/brisk. EOMI, visual bailey full, no facial asymmetry, facial sensation intact, hearing intact, tongue midline, no evidence of atrophy or fibrillations. -? Motor: RUE drift Difficulty with following commands to do formal strength testing but fights the providers -? Sensation- Intact to light touch bilaterally -? Coordination: No dysmetria on [id number], LLE ataxia -? Gait- deferred [facility] Medical History Atherosclerosis of coronary artery of [place] heart without angina pectoris Prostate CA Stroke [...] PO DAILY@0800 heal th 12/14/21 12/14/21 History potassium chloride 10 mEq 20 meq PO DAILY supplement 1 02/13/21 12/14/21 History tablet,extended release albuterol sulfate 90 mcg/actuation 2 puff inhalation Q 4H PRN PRN 03/15/23 Unknown Rx aerosol inhaler (Ventolin HFA) Wheezing ##1 fluticasone 250 mcg-salmeterol 50 1 inh inhalation Q12 H 09/10/24 Unknown History mcg/dose blistr powdr for inhalation gabapentin 300 mg capsule 300 mg PO BID 09/10/24 Unkno wn History nitroglycerin 0.3 mg sublingual 0.3 mg sublingual Q5M PRN chest 09/10/24 Unknown History tablet pain paroxetine HCl 40 mg tablet 40 mg PO DAILY 09/10/24 Un known History amoxicillin 875 mg-potassium 1 tab PO BIDCM #11 tabs 0 09/12/24 Unknown Rx clavulanate 125 mg tablet atenolol 50 mg tablet 50 mg PO DAILY #30 tabs 0808/01 Unknown Rx furosemide 40 mg tablet (Lasix) 40 mg PO BID #60 tabs 09/12/24 Unknown Rx warfarin 2.5 mg tablet (Jantoven) 5 mg (2 x 2.5 mg) PO 1700 #60 tabs 09/12/24 Unknown Rx Allergy/AdvReac Type Severity Reaction Status Date / Time oxycodone (From Percodan) Allergy Other Verified 09/16/24 18:21 Surgical History History of coronary artery stent placement (12/16/21) Cataract extraction status History of hip replacement History of open heart surgery Social History (Updated 09/16/24 @ 21:[address] Olivia Walters MD) household members: family Smoking Status: Former smoker quit date: 02/08/92 pack-years: 37 Tobacco: How many years used: 20 alcohol intake: never substance use type: does not use Vital Signs Vital Signs Vital Signs: 09/16/24 18:21 09/16/24 18:27 09/16/24 18:31 Temperature 97.7 F L 98.2 F Temperature Source Temporal Oral Pulse Rate 95 100 Pulse Strength Respiratory Rate 14 22 H Respiratory Effort Respiratory Depth Respiratory Pattern Normal Blood Pressure 122/72 H 133/74 H Blood Pressure Mean 88 93 Pulse Ox 97 95 Oxygen Delivery Method Nasal Cannula Nasal Cannula Oxygen Flow Rate (L/min) 4 2 09/16/24 19:31 09/16/24 20:00 09/16/24 20:50 Temperature 98.3 F 98.7 F 98.7 F Temperature Source Oral Oral Pulse Rate 90 90 90 Pulse Strength Respiratory Rate 18 18 18 Respiratory Effort Respiratory Depth Respiratory Pattern Blood Pressure 140/87 H 146/70 H 146/70 H Blood Pressure Mean 104 95 95 Pulse Ox 98 98 98 Oxygen Delivery Method Room Air Room Air Oxygen Flow Rate (L/min) 09/16/24 21:00 09/16/24 22:10 09/16/24 22:35 Temperature 98.3 F 97.8 F Temperature Source Oral Temporal Pulse Rate 100 88 Pulse Strength Respiratory Rate 20 H 18 Respiratory Effort Normal Non-Labored Respiratory Depth Normal Respiratory Pattern Normal Blood Pressure 149/72 H 138/78 H Blood Pressure Mean 97 98 Pulse Ox 98 94 Oxygen Delivery Method Room Air Nasal Cannula Nasal Cannula Oxygen Flow Rate (L/min) 3 3 09/16/24 22:58 09/16/24 23:03 09/17/24 02:15 Temperature 97.6 F L Temperature Source Temporal Pulse Rate 106 H Pulse Strength Respiratory Rate 18 Respiratory Effort Respiratory Depth Respiratory Pattern Blood Pressure 156/97 H Blood Pressure Mean 116 Pulse Ox 94 95 Oxygen Delivery Method Nasal Cannula Nasal Cannula Nasal Cannula Oxygen Flow Rate (L/min) 1.5 1.5 1.5 09/17/24 02:17 09/17/24 06:50 09/17/24 08:49 Temperature Temperature Source Pulse Rate Pulse Strength Respiratory Rate Respiratory Effort Normal Non-Labored Respiratory Depth Normal Respiratory Pattern Normal Blood Pressure Blood Pressure Mean Pulse Ox 86 Oxygen Delivery Method Nasal Cannula Nasal Cannula Oxygen Flow Rate (L/min) 2 09/17/24 08:49 09/17/24 08:53 09/17/24 09:06 Temperature 98.2 F Temperature Source Oral Pulse Rate 106 H Pulse Strength Weak (1+) Respiratory Rate 18 Respiratory Effort Normal Non-Labored Respiratory Depth Normal Respiratory Pattern Normal Blood Pressure 139/87 H Blood Pressure Mean 104 Pulse Ox 96 Oxygen Delivery Method Nasal Cannula Nasal Cannula Oxygen Flow Rate (L/min) 3 3 09/17/24 11:29 09/17/24 11:30 Temperature Temperature Source Pulse Rate Pulse Strength Respiratory Rate Respiratory Effort Respiratory Depth Respiratory Pattern Blood Pressure Blood Pressure Mean Pulse Ox Oxygen Delivery Method Oxygen Flow Rate (L/min) 2 3 Weight Weight: 91.5 kg Body Mass Index (BMI) 28.2 EEG Results Procedure Details EEG Procedure Details: TYLOR PEDERSEN is a 83 year old M with a past medical history of , who presents for evaluation of Electroencephalogram on DATE at TIME Lab / Micro Data 09/18/24 06:58 09/17/24 01:53 Labs: Laboratory Results - last 24 hr 09/16/24 18:25: WBC 18.0 H, RBC 4.62, Hgb 13.9, Hct 44.0, MCV 95.2 H, MCH 30.1, MCHC 31.6 L, RDW Std Deviation 46.3 H, RDW Coeff of Erica 13.2, Plt Count 201, MPV9.1, Immature Gran % (Auto) 1.800 H, Neut % (Auto) 85.4 H, Lymph % (Auto) 4.6 L,[place] % (Auto) 4.1, Eos % (Auto) 3.7, Baso % (Auto) 0.4, Absolute Neuts (auto) 15.3 H, Absolute Lymphs (auto) 0.83, Nucleated RBC % 0, PT 32.4 H, INR 3.1, Sodium 138, Potassium 4.6, Chloride 93 L, Carbon Dioxide 35.6 H, Anion Gap 9, BUN 24 H, Creatinine 0.81, Estim Creat Clear Calc 80.91, Est GFR (MDRD) Non-Af 87, BUN/Creatinine Ratio 29.2 H, Glucose 112 H, Calcium 9.3, Magnesium 2.3 H, Procalcitonin 0.09 09/16/24 19:38: Urine Color Yellow, Urine Clarity Clear, Urine pH 7.0, Ur Specific [place] 1.010, Urine Protein 30 H, Urine Glucose (UA) Normal, Urine Ketones Negative, Urine Occult Blood 250 H, Urine Nitrite Negative, Urine Bilirubin Negative, Urine Urobilinogen 4 H, Ur Leukocyte Esterase 25 H, Urine RBC 5-10 SEEN, Urine WBC 0-5 SEEN, Ur Squamous Epith Cells 0-5 SEEN, Urine Bacteria 1+, Hyaline Casts 10-25 SEEN, Urine Mucus 0 SEEN 09/16/24 22:15: Ammonia 31.9, Troponin T High Sens 12 D 09/17/24 00:25: Troponin T Hi Sens 2 Hr 13 09/17/24 01:53: WBC 16.9 H, RBC 4.50 L, Hgb 13.5, Hct 42.9, MCV 95.3 H, MCH 30.0, MCHC 31.5 L, RDW Std Deviation 46.6 H, RDW Coeff of Erica 13.2, Plt Count 177, MPV 9.1, Immature Gran % (Auto) 1.700 H,Neut % (Auto) 85.0 H, Lymph % (Auto) 4.6 L, [place] % (Auto) 4.8, Eos % (Auto) 3.5, Baso % (Auto) 0.4,Absolute Neuts (auto) 14.3 H, Absolute Lymphs (auto) 0.78 L, Nucleated RBC % 0, PT 35.1 H, INR 3.4,Sodium 138, Potassium 4.4, Chloride 93 L, Carbon Dioxide 33.0 H, Anion Gap 11, BUN 25 H, Creatinine0.77, Estim Creat Clear Calc 78.17, Est GFR (MDRD) Non-Af 88, BUN/Creatinine Ratio 31.7 H, Glucose 106 H, Calcium 9.2, TotalBilirubin 0.75, AST 21, ALT 26, Alkaline Phosphatase 131 H, Troponin T Hi Sens 4Hr 14, Total Protein 6.7, Albumin 3.6, Globulin 3.1, Albumin/Globulin Ratio 1.2, TSH 2.330 ABG Data ABG results: ABG 09/16/24 22:52 Specimen Type ART Sample Site R Radial pH 7.41 Bicarbonate Actual 40.2 H Total CO2 42 Base Excess 16 H O2 Saturation 99 O2 % 3.0 ABG pCO2 63.2 H ABG pO2 120 H Josef Test Positive O2 Delivery Device Cannula Vent Mode Not entered Imaging Radiology Impression Brain CT 09/16/24 18:50 IMPRESSION: No acute intracranial finding. Reading Location: [id number] Chest X-Ray 09/16/24 20:10 IMPRESSION: No Acute Findings. Reading Location: [facility] Active Medications Active Medications Active Medications: Current Medications Generic Name Dose Route Start Last Admin Trade Name Freq PRN Reason Stop Dose Admin Acetaminophen 650 mg 09/16/24 21:48 Acetaminophen 325 Mg Tablet PO Q4H PRN PRN Fever, pain 1-10/10 Acetaminophen 650 mg 09/16/24 21:48 Acetaminophen 650 Mg Suppository RC Q4H PRN PRN Fever, pain 1-10 Al Hydroxide/Mg Hydroxide 30 ml 09/16/24 21:48 Mag Hydrox/Al Hydrox/Simeth 30 Ml Udc PO Q6H PRN PRN Gastric Burning Albuterol Sulfate 2.5 mg 09/16/24 21:48 Albuterol 2.5 Mg/3 Ml Vial.Neb. INHALATION Q2H PRN PRN Dyspnea, wheezing Amoxicillin/Clavulanate Potassium 875 mg 09/16/24 21:48 09/17/24 09:00 Amox/Clavulanate 875 Mg Tablet PO 875 mg BIDCM FRANNY Administration Aspirin 81 mg 09/17/24 08:00 09/17/24 09:01 Aspirin 81 Mg Tab.Chew PO 81 mg BREAKFAST FRANNY Administration Atenolol 50 mg 09/17/24 10:00 09/17/24 09:00 Atenolol 50 Mg Tablet PO 50 mg DAILY FRANNY Administration Protocol Atorvastatin Calcium 40 mg 09/16/24 22:00 09/17/24 00:29 Atorvastatin Calcium 40 Mg Tablet PO Not Given QHS FRANNY Budesonide 0.5 mg 09/16/24 21:48 Budesonide Respules 0.5 Mg/2 Ml Ampul.Neb. INHALATION BID.RT FRANNY Furosemide 40 mg 09/16/24 22:00 09/17/24 09:01 Furosemide 40 Mg Tablet PO 40 mg BID FRANNY Administration Protocol Gabapentin 300 mg 09/16/24 22:00 09/17/24 09:00 Gabapentin 300 Mg Capsule PO 300 mg BID FRANNY Administration Guaifenesin 20 ml 09/16/24 21:48 Guaifenesin 10 Ml Udc (200mg/10ml) PO Q4H PRN PRN COUGH Hydralazine HCl 10 mg 09/16/24 21:48 Hydralazine 20 Mg/Ml Vial IV Q4H PRN PRN SBP > 180 Protocol Sodium Chloride 250 mls @ 15 mls/hr 09/16/24 22:07 IV .[id number] PRN Saline Flush Sodium Chloride 250 mls @ 15 mls/hr 09/16/24 22:07 IV .[id number] PRN Additional IVPB Infusion Levothyroxine Sodium 50 mcg 09/17/24 06:00 09/17/24 01:21 Levothyroxine 50 Mcg Tablet PO Not Given DAILY@0600 [facility] Losartan Potassium 50 mg 09/17/24 10:00 09/17/24 09:00 Losartan Potassium 50 Mg Tablet PO 50 mg DAILY FRANNY Administration Protocol Melatonin 3 mg 09/16/24 21:48 Melatonin 3 Mg Tablet PO QHS PRN PRN INSOMNIA Nitroglycerin 0.4 mg 09/17/24 00:10 Nitroglycerin (Inpatient Use) 0.4 Mg Tab.Subl SL Q5M PRN CARDIAC/CHEST PAIN Ondansetron HCl 4 mg 09/16/24 21:48 Ondansetron 4 Mg/2 Ml Vial IV Q8H PRN PRN NAUSEA/VOMITING Paroxetine HCl 40 mg 09/17/24 10:00 09/17/24 09:00 Paroxetine 20 Mg Tablet PO 40 mg DAILY FRANNY Administration Potassium Chloride 20 meq 09/17/24 10:00 09/17/24 09:00 Potassium Chloride Oral Tablet 20 Meq PO 20 meq DAILY FRANNY Administration Senna/Docusate Sodium 2 tablet 09/16/24 21:48 Senna/Docusate Sodium 1 Tablet PO BID PRN PRN Constipation Sodium Chloride 10 - 40 ml 09/16/24 22:07 0.9% Saline Lock 10 Ml Syringe IV UD PRN SALINE FLUSH Spironolactone 25 mg 09/17/24 10:00 09/17/24 09:01 Spironolactone 25 Mg Tablet PO 25 mg DAILY [facility] Administration Protocol Warfarin Sodium 5 mg 09/17/24 17:00 Warfarin 5 Mg Tablet PO 1700 FRANNY 09/18/24 0728 Cosigner Signature (if applicable): CC: Dr. Shayne Zaidi MD~ Signed [facility]08-11-2025 Radiology Diagnostic study note [facility] Imaging Services [address] [place], [place] [id number] CTA Head AND Neck W/ Contrast MR#: [id number] Acct: [id number] Name: TYLOR PEDERSEN Rep #: [id number] : 1940 M 83 From: Bonnie Levine MD PCP: Dr. Shayne Zaidi MD Status: ADM MARICARMEN Study:CTA Head AND Neck W/ Contrast Date of E xam: 09/17/24 Exam# [id number] Ordering Dr: Archie Burton MD PROCEDURE: CTA HEAD AND NECK W/ CONTRAST 09/17/2024 REASON FOR EXAM: SUSPECTED STROKE WORK UP TECHNIQUE: CTA HEAD AND NECK W/ CONTRAST Multiplanar Sagittal and Coronal images were obtained. CONTRAST: Isovue 370 VOLUME: 88 mL One or more dose reduction techniques were used (e.g., Automated exposure control, adjustment of the mA and/or kV according to patient size, use of iterative reconstruction technique). RADIATION DOSE SUMMARY: CTDlvol: 19.44 mGy DLP: 5061.29 mGycm COMPARISON: None. FINDINGS: Aortic Arch: Normal size and branching pattern. No significant atherosclerotic plaque. Brachiocephalic and Subclavians: Unremarkable RIGHT Carotid: Right CCA: Unremarkable Right ICA: Unremarkable Right ECA: Unremarkable LEFT Carotid: Left CCA: Unremarkable Left ICA: Unremarkable Left ECA: Unremarkable. Vertebrals: Patent RIGHT Vertebral: Patent LEFT Vertebral: Patent Anatomy: [place] anatomy is normal. Aneurysm or avm: No intracranial aneurysms or large vascular malformations are identified. Anterior cerebral arteries: Unremarkable: Middle cerebral arteries: Unremarkable. Basilar artery: Unremarkable. Posterior cerebral arteries: Unremarkable. Other major branches of the posterior circulation: Unremarkable. Major venous structures: Unremarkable. Other findings: Neck: No lymphadenopathy. Lungs: Lung apices are clear. Bones: Bones are unremarkable. CT/CTA Head AND Neck W/ Contrast IMPRESSION: No significant stenosis in the head and neck. No dissection. No aneurysm. Reading Location: [facility] CC: Dr. Shayne Zaidi MD; Dr. Trevor Burton MD ~ Stained Glass Artist: Signed [facility]08-11-2025 Progress note Author Trevor Burton [facility] Note Date/Time September 17, 2024 9: 07am [facility] Medical Records Department [address] [facility] [place] [address] Progress Note - Hospitalist 09/17/2430 MR#: [id number] Acct: [id number] Name: TYLOR PEDERSEN Rep #:[id number] : 1940 83 From: Trevor Moody PCP: Dr. Shayne Zaidi MD Status:ADM MARICARMEN Location: [place] [address] Reason for Visit Chief Complaint: Confusion Objective Data Objective Data Vital Signs: Vital Signs Temp Pulse Resp BP Pulse Ox O2 Del Method O2 Flow Rate 97.6 F L 106 H 18 156/97 H 95 Nasal Cannula 1.5 09/17/24 02:15 09/17/24 02:15 09/17/24 02:15 09/17/24 02:15 09/17/24 02:15 09/17/24 06:50 09/17/24 02:15 Oxygen Flow Rate (L/min) 1.5 Oxygen Delivery Method Nasal Cannula Weight: 201 lb 11.567 oz Body Mass Index (BMI) 28.2 Intake & Output: Intake and Output for Last 24 Hours 09/15/24 09/16/24 09/17/24 23:59 23:59 23:59 Intake Total 347.5 / 347.5 Output Total 600 / 600 Balance 347.5 / 347.5 -600 / -600 Lab / Micro Data 09/17/24 01:53 09/17/24 01:53 Labs: Laboratory Results - last 24 hr 09/16/24 18:25: WBC 18.0 H, RBC 4.62, Hgb 13.9, Hct 44.0, MCV 95.2 H, MCH 30.1, MCHC 31.6 L, RDW Std Deviation 46.3 H, RDW Coeff of Erica 13.2, Plt Count 201, MPV9.1, Immature Gran % (Auto) 1.800 H, Neut % (Auto) 85.4 H, Lymph % (Auto) 4.6 L,[place] % (Auto) 4.1, Eos % (Auto) 3.7, Baso % (Auto) 0.4, Absolute Neuts (auto) 15.3 H, Absolute Lymphs (auto) 0.83, Nucleated RBC % 0, PT 32.4 H, INR 3.1, Sodium 138, Potassium 4.6, Chloride 93 L, Carbon Dioxide 35.6 H, Anion Gap 9, BUN 24 H, Creatinine 0.81, Estim Creat Clear Calc 80.91, Est GFR (MDRD) Non-Af 87, BUN/Creatinine Ratio 29.2 H, Glucose 112 H, Calcium 9.3, Magnesium 2.3 H, Procalcitonin 0.09 09/16/24 19:38: Urine Color Yellow, Urine Clarity Clear, Urine pH 7.0, Ur Specific [place] 1.010, Urine Protein 30 H, Urine Glucose (UA) Normal, Urine Ketones Negative, Urine Occult Blood 250 H, Urine Nitrite Negative, Urine Bilirubin Negative, Urine Urobilinogen 4 H, Ur Leukocyte Esterase 25 H, Urine RBC 5-10 SEEN, Urine WBC 0-5 SEEN, Ur Squamous Epith Cells 0-5 SEEN, Urine Bacteria 1+, Hyaline Casts 10-25 SEEN, Urine Mucus 0 SEEN 09/16/24 22:15: Ammonia 31.9, Troponin T High Sens 12 D 09/17/24 00:25: Troponin T Hi Sens 2 Hr 13 09/17/24 01:53: WBC 16.9 H, RBC 4.50 L, Hgb 13.5, Hct 42.9, MCV 95.3 H, MCH 30.0, MCHC 31.5 L, RDW Std Deviation 46.6 H, RDW Coeff of Erica 13.2, Plt Count 177, MPV 9.1, Immature Gran % (Auto) 1.700 H, Neut % (Auto) 85.0 H, Lymph % (Auto) 4.6 L, [place] % (Auto) 4.8, Eos % (Auto) 3.5, Baso % (Auto) 0.4, Absolute Neuts (auto) 14.3 H, Absolute Lymphs (auto) 0.78 L, Nucleated RBC % 0, PT 35.1 H, INR 3.4, Sodium 138, Potassium 4.4, Chloride 93 L, Carbon Dioxide 33.0 H, Anion Gap 11, BUN 25 H, Creatinine 0.77, Estim Creat Clear Calc 78.17, Est GFR (MDRD) Non-Af 88, BUN/Creatinine Ratio 31.7 H, Glucose 106 H, Calcium 9.2, TotalBilirubin 0.75, AST 21, ALT 26, Alkaline Phosphatase 131 H, Troponin T Hi Sens 4Hr 14, Total Protein 6.7, Albumin 3.6, Globulin 3.1, Albumin/Globulin Ratio 1.2, TSH 2.330 ABG Data ABG results: ABG 09/16/24 22:52 Specimen Type ART Sample Site R Radial pH 7.41 Bicarbonate Actual 40.2 H Total CO2 42 Base Excess 16 H O2 Saturation 99 O2 % 3.0 ABG pCO2 63.2 H ABG pO2 120 H Josef Test Positive O2 Delivery Device Cannula Vent Mode Not entered Radiography Diagnostic Testing: Radiology Impression Brain CT 09/16/24 18:50 IMPRESSION: No acute intracranial finding. Reading Location: [facility] Chest X-Ray 09/16/24 20:10 IMPRESSION: No Acute Findings. Reading [facility] Physical Exam Narrative Seen and examined Patient is hard of hearing using hearing aid . He told he is a [place] and month October. Physical exam General: Awake, anxious, disoriented to time. Oriented to person and place. HEENT: Atraumatic, PERRLA, EOMI, Normocephalic. Oral: No Gingival or Mucosal Lesions/ Ulcerations Neck: Supple, No JVD, Negative Carotid Bruits Chest wall/Lungs: Air entry diminished in bilateral lung bases. No crepitation/rhonchi Cardiovascular: Irregular rhythm, A-fib, No M/G/R Abdomen: Bowel Sounds Present, Soft, Non Tender, Non-Distended : No dysuria. No renal angle tenderness. No suprapubic tenderness. Extremities: No edema, Capillary Refill Less than 3 Seconds Skin: No rashes, No breakdown Musculoskeletal: No Tenderness to Palpation of Joints or Extremities Neurological: Cranial nerves II-XII grossly intact, DTR 2+/4. No acute focal neurological deficit. Psych/Mental Status: Flat affect, anxious. Assessment & Plan Assessment/Plan (1) Altered mental status: (2) Leukocytosis: PLAN: Plan The patient is 83-year-old gentleman being admitted for confusion, talking irrelevant. As per EMS patient was been talking to family members, hallucination/delusion. He stated he felt a lot of anxiety. Patient was discharged with recent aspiration pneumonia and completed antibiotic Augmentin #1. Altered mental status/delusions/hallucination, talking irrelevant: Exact etiology unclear. MRI is ordered. CT head does not show acute intracranial abnormality. Procalcitonin normal. ABG 7.4 /120/40.2. Total bicarb 42. BMP bicarb is 35.6. High discrepancy more than 5. #2. Chronic HFpEF with recent Acute HFpEF Exacerbation: Chest x-ray no acute finding. INR 3.1 increased to 3.4. Continue INR. Continue statin therapy, atenolol, spironolactone, Lasix regimen. IV fluid in ED discontinued most recent echocardiogram during recent admission 09/10/2024 withnormal LV size, LV systolic function lower limits of normal, EF 53%, mild focal MV calcification, bileaflet, PASP 40 mmHg. #3. Recent aspiration pneumonia: On oral Augmentin. Speech therapy consulted. Aspiration precaution. Continue diet adjustment with nectar thickened liquids. #4. PAF: INR supratherapeutic on atenolol. Heart rate 106. #5. CAD: Status post previous CABG x 2 and PCI noted of the distal left main and then the circumflex artery, also saphenous vein graft to the obtuse marginalbranch and ECHEVARRIA to the LAD previously noted to be patent with an occluded right coronary artery and [id number] collaterals evident. Continue baby aspirin, statin therapy, atenolol, not on ISSAC inhibitor/ARB, unclear reason. Losartan 50mg started #6. Chronic COPD with chronic hypoxic respiratory failure: on 3 L NC home oxygen supplementation, temporarily hold home inhaler and transition interim to ATC budesonide therapy given PAF with RVR recent presentation concurrently, PRN albuterol, HOB, IS parameters. #7. Hypertension: Continue home regimen including spironolactone, Lasix, atenolol with hold parameters as needed, PRN hydralazine. #8. Hyperlipidemia: continue patient home statin therapy. #9. Hypothyroidism: continue patient on levothyroxine regimen, TSH requested. #10. Chronic neuropathy: continue patient on gabapentin regimen, low threshold to hold for sedation. #11. History of CVA: Patient with history of previous strokes including left brainstem stroke, will continue to baby aspirin, Coumadin with INR trending, statin therapy, hypertensive regimen as noted. #12. Chronic Kidney Disease Stage II: Admission BUN/Cr 24/0.1, GFR 87, baselinerenal function 0.6-0.9, repeat BMP in AM. #13. Anxiety and depression, panic attacks: Will continue patient on paroxetineregimen. Administered low-dose IV Ativan in the ED however patient following asexpected is somnolent thus will avoid further administration if able. #14. Obesity: Weight loss and lifestyle changes encouraged. #15. DVT prophylaxis: Will continue Coumadin with INR trending, 3.1 upon admission. #16. CODE status: Full Code. Laboratory Results 09/16/24 18:25: WBC 18.0 H, RBC 4.62, Hgb 13.9, Hct 44.0, MCV 95.2 H, MCH 30.1, MCHC 31.6 L, RDW Std Deviation 46.3 H, RDW Coeff of Erica 13.2, Plt Count 201, MPV9.1, Immature Gran % (Auto) 1.800 H, Neut % (Auto) 85.4 H, Lymph % (Auto) 4.6 L,[place] % (Auto) 4.1, Eos % (Auto) 3.7, Baso % (Auto) 0.4, Absolute Neuts (auto) 15.3 H, Absolute Lymphs (auto) 0.83, Nucleated RBC % 0, PT 32.4 H, INR 3.1, Sodium 138, Potassium 4.6, Chloride 93 L, Carbon Dioxide 35.6 H, Anion Gap 9, BUN 24 H, Creatinine 0.81, Estim Creat Clear Calc 80.91, Est GFR (MDRD) Non-Af 87, BUN/Creatinine Ratio 29.2 H, Glucose 112 H, Calcium 9.3, Magnesium 2.3 H, Procalcitonin 0.09 09/16/24 19:38: Urine Color Yellow, Urine Clarity Clear, Urine pH 7.0, Ur Specific [place] 1.010, Urine Protein 30 H, Urine Glucose (UA) Normal, Urine Ketones Negative, Urine Occult Blood 250 H, Urine Nitrite Negative, Urine Bilirubin Negative, Urine Urobilinogen 4 H, Ur Leukocyte Esterase 25 H, Urine RBC 5-10 SEEN, Urine WBC 0-5 SEEN, Ur Squamous Epith Cells 0-5 SEEN, Urine Bacteria 1+, Hyaline Casts 10-25 SEEN, Urine Mucus 0 SEEN 09/16/24 22:15: Ammonia 31.9, Troponin T High Sens 12 D 09/16/24 22:52: Specimen Type ART, Sample Site R Radial, pH 7.41, Bicarbonate Actual 40.2 H, Total CO2 42, Base Excess 16 H, O2 Saturation 99, O2 % 3.0, ABG pCO2 63.2 H, ABG pO2 120 H, Josef Test Positive, O2 Delivery Device Cannula, Vent Mode Not entered 09/17/24 00:25: Troponin T Hi Sens 2 Hr 13 09/17/24 01:53: WBC 16.9 H, RBC 4.50 L, Hgb 13.5, Hct 42.9, MCV 95.3 H, MCH 30.0, MCHC 31.5 L, RDW Std Deviation 46.6 H, RDW Coeff of Erica 13.2, Plt Count 177, MPV 9.1, Immature Gran % (Auto) 1.700 H, Neut % (Auto) 85.0 H, Lymph % (Auto) 4.6 L, [place] % (Auto) 4.8, Eos % (Auto) 3.5, Baso % (Auto) 0.4, Absolute Neuts (auto) 14.3 H, Absolute Lymphs (auto) 0.78 L, Nucleated RBC % 0, PT 35.1 H, INR 3.4, Sodium 138, Potassium 4.4, Chloride 93 L, Carbon Dioxide 33.0 H, Anion Gap 11, BUN 25 H, Creatinine 0.77, Estim Creat Clear Calc 78.17, Est GFR (MDRD) Non-Af 88, BUN/Creatinine Ratio 31.7 H, Glucose 106 H, Calcium 9.2, TotalBilirubin 0.75, AST 21, ALT 26, Alkaline Phosphatase 131 H, Troponin T Hi Sens 4Hr 14, Total Protein 6.7, Albumin 3.6, Globulin 3.1, Albumin/Globulin Ratio 1.2, TSH 2.330 Charges/Coding Visit Charges Inpatient E&M: 16638 Subs Hosp L2 09/17/24 0907 <Electronically signed by Trevor Burton MD> Cosigner Signature (if applicable): CC: ~ Signed [facility] Work Phone: [phone] 431-246108-11-2025 Telephone encounter Note* Telephone Encounter - Ge Will LPN - 09/17/2024 9:42 AM EDT Received visit summary from [facility]. Placed in provider's inbox for review. Route to MA scanning [facility]08-11-2025 Miscellaneous Notes* Telephone Encounter - Ge Will LPN - 09/17/2024 9:42 AM EDT Received visit summary from [facility]. Placed in provider's inbox for review. Route to MA scanning [facility] Progress note [facility] Medical Records Department [address] [place] [address] Progress Note - Hospitalist 09/17/24 0830 MR#: [id number] Acct: [id number] Name: TYLOR PEDERSEN Rep #:[id number] : 1940 83 From: Trevor Moody PCP: Dr. Shayne Zaidi MD Status:ADM MARICARMEN Location: [place] [address] Reason for Visit Chief Complaint: Confusion Objective Data Objective Data Vital Signs: Vital Signs Temp Pulse Resp BP Pulse Ox O2 Del Method O2 Flow Rate 97.6 F L 106 H 18 156/97 H 95 Nasal Cannula 1.5 09/17/24 02:15 09/17/24 02:15 09/17/24 02:15 09/17/24 02:15 09/17/24 02:15 09/17/24 06:50 09/17/24 02:15 Oxygen Flow Rate (L/min) 1.5 Oxygen Delivery Method Nasal Cannula Weight: 201 lb 11.567 oz Body Mass Index (BMI) 28.2 Intake & Output: Intake and Output for Last 24 Hours 09/15/24 09/16/24 09/17/24 23:59 23:59 23:59 Intake Total 347.5 / 347.5 Output Total 600 / 600 Balance 347.5 / 347.5 -600 / -600 Lab / Micro Data 09/17/24 01:53 09/17/24 01:53 Labs: Laboratory Results - last 24 hr 09/16/24 18:25: WBC 18.0 H, RBC 4.62, Hgb 13.9, Hct 44.0, MCV 95.2 H, MCH 30.1, MCHC 31.6 L, RDW Std Deviation 46.3 H, RDW Coeff of Erica 13.2, Plt Count 201, MPV9.1, Immature Gran % (Auto) 1.800 H, Neut % (Auto) 85.4 H, Lymph % (Auto) 4.6 L,[place] % (Auto) 4.1, Eos % (Auto) 3.7, Baso % (Auto) 0.4, Absolute Neuts (auto) 15.3 H, Absolute Lymphs (auto) 0.83, Nucleated RBC % 0, PT 32.4 H, INR 3.1, Sodium 138, Potassium 4.6, Chloride 93 L, Carbon Dioxide 35.6 H, Anion Gap 9, BUN 24 H, Creatinine 0.81, Estim Creat Clear Calc 80.91, Est GFR (MDRD) Non-Af 87, BUN/Creatinine Ratio 29.2 H, Glucose 112 H, Calcium 9.3, Magnesium 2.3 H, Procalcitonin 0.09 09/16/24 19:38: Urine Color Yellow, Urine Clarity Clear, Urine pH 7.0, Ur Specific [place] 1.010, Urine Protein 30 H, Urine Glucose (UA) Normal, Urine Ketones Negative, Urine Occult Blood 250 H, Urine Nitrite Negative, Urine Bilirubin Negative, Urine Urobilinogen 4 H, Ur Leukocyte Esterase 25 H, Urine RBC 5-10 SEEN, Urine WBC 0-5 SEEN, Ur Squamous Epith Cells 0-5 SEEN, Urine Bacteria 1+, Hyaline Casts 10-25 SEEN, Urine Mucus 0 SEEN 09/16/24 22:15: Ammonia 31.9, Troponin T High Sens 12 D 09/17/24 00:25: Troponin T Hi Sens 2 Hr 13 09/17/24 01:53: WBC 16.9 H, RBC 4.50 L, Hgb 13.5, Hct 42.9, MCV 95.3 H, MCH 30.0, MCHC 31.5 L, RDW Std Deviation 46.6 H, RDW Coeff of Erica 13.2, Plt Count 177, MPV 9.1, Immature Gran % (Auto) 1.700 H,Neut % (Auto) 85.0 H, Lymph % (Auto) 4.6 L, [place] % (Auto) 4.8, Eos % (Auto) 3.5, Baso % (Auto) 0.4,Absolute Neuts (auto) 14.3 H, Absolute Lymphs (auto) 0.78 L, Nucleated RBC % 0, PT 35.1 H, INR 3.4,Sodium 138, Potassium 4.4, Chloride 93 L, Carbon Dioxide 33.0 H, Anion Gap 11, BUN 25 H, Creatinine0.77, Estim Creat Clear Calc 78.17, Est GFR (MDRD) Non-Af 88, BUN/Creatinine Ratio 31.7 H, Glucose 106 H, Calcium 9.2, TotalBilirubin 0.75, AST 21, ALT 26, Alkaline Phosphatase 131 H, Troponin T Hi Sens 4Hr 14, Total Protein 6.7, Albumin 3.6, Globulin 3.1, Albumin/Globulin Ratio 1.2, TSH 2.330 ABG Data ABG results: ABG 09/16/24 22:52 Specimen Type ART Sample Site R Radial pH 7.41 Bicarbonate Actual 40.2 H Total CO2 42 Base Excess 16 H O2 Saturation 99 O2 % 3.0 ABG pCO2 63.2 H ABG pO2 120 H Josef Test Positive O2 Delivery Device Cannula Vent Mode Not entered Radiography Diagnostic Testing: Radiology Impression Brain CT 09/16/24 18:50 IMPRESSION: No acute intracranial finding. Reading Location: [facility] Chest X-Ray 09/16/24 20:10 IMPRESSION: No Acute Findings. Reading Location: [facility] Physical Exam Narrative Seen and examined Patient is hard of hearing using hearing aid . He told he is a [place] 86 and month October. Physical exam General: Awake, anxious, disoriented to time. Oriented to person and place. HEENT: Atraumatic, PERRLA, EOMI, Normocephalic. Oral: No Gingival or Mucosal Lesions/ Ulcerations Neck: Supple, No JVD, Negative Carotid Bruits Chest wall/Lungs: Air entry diminished in bilateral lung bases. No crepitation/rhonchi Cardiovascular: Irregular rhythm, A-fib, No M/G/R Abdomen: Bowel Sounds Present, Soft, Non Tender, Non-Distended : No dysuria. No renal angle tenderness. No suprapubic tenderness. Extremities: No edema, Capillary Refill Less than 3 Seconds Skin: No rashes, No breakdown Musculoskeletal: No Tenderness to Palpation of Joints or Extremities Neurological: Cranial nerves II-XII grossly intact, DTR 2+/4. No acute focal neurological deficit. Psych/Mental Status: Flat affect, anxious. Assessment & Plan Assessment/Plan (1) Altered mental status: (2) Leukocytosis: PLAN: Plan The patient is 83-year-old gentleman being admitted for confusion, talking irrelevant. As per EMS patient was been talking to family members, hallucination/delusion. He stated he felt a lot of anxiety. Patient was discharged with recent aspiration pneumonia and completed antibiotic Augmentin #1. Altered mental status/delusions/hallucination, talking irrelevant: Exact etiology unclear. MRI is ordered. CT head does not show acute intracranial abnormality. Procalcitonin normal. ABG 7.4 1/63/120/40.2. Total bicarb 42. BMP bicarb is 35.6. High discrepancy more than 5. #2. Chronic HFpEF with recent Acute HFpEF Exacerbation: Chest x-ray no acute finding. INR 3.1 increased to 3.4. Continue INR. Continue statin therapy, atenolol, spironolactone, Lasix regimen. IV fluid in ED discontinued most recent echocardiogram during recent admission 09/10/2024 withnormal LV size, LV systolic function lower limits of normal, EF 53%, mild focal MV calcification, bileaflet, PASP 40 mmHg. #3. Recent aspiration pneumonia: On oral Augmentin. Speech therapy consulted. Aspiration precaution. Continue diet adjustment with nectar thickened liquids. #4. PAF: INR supratherapeutic on atenolol. Heart rate 106. #5. CAD: Status post previous CABG x 2 and PCI noted of the distal left main and then the circumflex artery, also saphenous vein graft to the obtuse marginalbranch and ECHEVARRIA to the LAD previously noted to be patent with an occluded right coronary artery and [id number] collaterals evident. Continue baby aspirin, statin therapy, atenolol, not on ISSAC inhibitor/ARB, unclear reason. Losartan 50mg started #6. Chronic COPD with chronic hypoxic respiratory failure: on 3 L NC home oxygen supplementation, temporarily hold home inhaler and transition interim to ATC budesonide therapy given PAF with RVR recent presentation concurrently, PRN albuterol, HOB, IS parameters. #7. Hypertension: Continue home regimen including spironolactone, Lasix, atenolol with hold parameters as needed, PRN hydralazine. #8. Hyperlipidemia: continue patient home statin therapy. #9. Hypothyroidism: continue patient on levothyroxine regimen, TSH requested. #10. Chronic neuropathy: continue patient on gabapentin regimen, low threshold to hold for sedation. #11. History of CVA: Patient with history of previous strokes including left brainstem stroke, willcontinue to baby aspirin, Coumadin with INR trending, statin therapy, hypertensive regimen as noted. #12. Chronic Kidney Disease Stage II: Admission BUN/Cr 24/0.1, GFR 87, baselinerenal function 0.6-0.9, repeat BMP in AM. #13. Anxiety and depression, panic attacks: Will continue patient on paroxetineregimen. Administered low-dose IV Ativan in the ED however patient following asexpected is somnolent thus will avoid further administration if able. #14. Obesity: Weight loss and lifestyle changes encouraged. #15. DVT prophylaxis: Will continue Coumadin with INR trending, 3.1 upon admission. #16. CODE status: Full Code. Laboratory Results 09/16/24 18:25: WBC 18.0 H, RBC 4.62, Hgb 13.9, Hct 44.0, MCV 95.2 H, MCH 30.1, MCHC 31.6 L, RDW Std Deviation 46.3 H, RDW Coeff of Erica 13.2, Plt Count 201, MPV9.1, Immature Gran % (Auto) 1.800 H, Neut % (Auto) 85.4 H, Lymph % (Auto) 4.6 L,[place] % (Auto) 4.1, Eos % (Auto) 3.7, Baso % (Auto) 0.4, Absolute Neuts (auto) 15.3 H, Absolute Lymphs (auto) 0.83, Nucleated RBC % 0, PT 32.4 H, INR 3.1, Sodium 138, Potassium 4.6, Chloride 93 L, Carbon Dioxide 35.6 H, Anion Gap 9, BUN 24 H, Creatinine 0.81, Estim Creat Clear Calc 80.91, Est GFR (MDRD) Non-Af 87, BUN/Creatinine Ratio 29.2 H, Glucose 112 H, Calcium 9.3, Magnesium 2.3 H, Procalcitonin 0.09 09/16/24 19:38: Urine Color Yellow, Urine Clarity Clear, Urine pH 7.0, Ur Specific [place] 1.010, Urine Protein 30 H, Urine Glucose (UA) Normal, Urine Ketones Negative, Urine Occult Blood 250 H, Urine Nitrite Negative, Urine Bilirubin Negative, Urine Urobilinogen 4 H, Ur Leukocyte Esterase 25 H, Urine RBC 5-10 SEEN, Urine WBC 0-5 SEEN, Ur Squamous Epith Cells 0-5 SEEN, Urine Bacteria 1+, Hyaline Casts 10-25 SEEN, Urine Mucus 0 SEEN 09/16/24 22:15: Ammonia 31.9, Troponin T High Sens 12 D 09/16/24 22:52: Specimen Type ART, Sample Site R Radial, pH 7.41, Bicarbonate Actual 40.2 H, Total CO2 42, Base Excess 16 H, O2 Saturation 99, O2 % 3.0, ABG pCO2 63.2 H, ABG pO2 120 H, Josef Test Positive, O2 Delivery Device Cannula, Vent Mode Not entered 09/17/24 00:25: Troponin T Hi Sens 2 Hr 13 09/17/24 01:53: WBC 16.9 H, RBC 4.50 L, Hgb 13.5, Hct 42.9, MCV 95.3 H, MCH 30.0, MCHC 31.5 L, RDW Std Deviation 46.6 H, RDW Coeff of Erica 13.2, Plt Count 177, MPV 9.1, Immature Gran % (Auto) 1.700 H,Neut % (Auto) 85.0 H, Lymph % (Auto) 4.6 L, [place] % (Auto) 4.8, Eos % (Auto) 3.5, Baso % (Auto) 0.4,Absolute Neuts (auto) 14.3 H, Absolute Lymphs (auto) 0.78 L, Nucleated RBC % 0, PT 35.1 H, INR 3.4,Sodium 138, Potassium 4.4, Chloride 93 L, Carbon Dioxide 33.0 H, Anion Gap 11, BUN 25 H, Creatinine0.77, Estim Creat Clear Calc 78.17, Est GFR (MDRD) Non-Af 88, BUN/Creatinine Ratio 31.7 H, Glucose 106 H, Calcium 9.2, TotalBilirubin 0.75, AST 21, ALT 26, Alkaline Phosphatase 131 H, Troponin T Hi Sens 4Hr 14, Total Protein 6.7, Albumin 3.6, Globulin 3.1, Albumin/Globulin Ratio 1.2, TSH 2.330 Charges/Coding Visit Charges Inpatient E&M: 38177 Subs Hosp L2 09/17/24 0907 Cosigner Signature (if applicable): CC: ~ Signed [facility]08-10-2025 Discharge summary Author Chris Cole [facility] Note Date/Time September 16, 2024 9: 54pm [facility] Medical Records Department [address] [place] [address] Emergency Department Summary 09/16/24 MR#: [id number] Acct: [id number] Name: TYLOR PEDERSEN Rep #:[id number] : 1940 83 From: Crhis Cole DO PCP: Dr. Shayne Zaidi MD Status:ADM MARICARMEN Location: [place] [address] HPI History of Present Illness Chief Complaint: General Illness Detail of Chief Complaint: Confusion Informant: patient Narrative Narrative: Patient presents to the emergency department complaint of some confusion that started last evening. Patient apparently at times will kind of twitch in his sleep and then when he woke up he started talking to his son and told him to give medications to his other son. Really was not making much sense. He was admitted recently to the hospital for pneumonia. Currently on an antibiotic. He denies headache. Denies chest pain. Denies abdominal pain. Denies urinary symptoms. He has not had a fever. He does wear home O2 for history of COPD. Patient really does not know why he is here and states that other than feeling anxious he really has no complaints. [facility] Medical History Atherosclerosis of coronary artery of [place] heart without angina pectoris Prostate CA Stroke [...] PO DAILY@0800 heal th 12/14/21 12/14/21 History potassium chloride 10 mEq 20 meq PO DAILY supplement 1 02/13/21 12/14/21 History tablet,extended release albuterol sulfate 90 mcg/actuation 2 puff inhalation Q 4H PRN PRN 03/15/23 Unknown Rx aerosol inhaler (Ventolin HFA) Wheezing ##1 fluticasone 250 mcg-salmeterol 50 1 inh inhalation Q12 H 09/10/24 Unknown History mcg/dose blistr powdr for inhalation gabapentin 300 mg capsule 300 mg PO BID 09/10/24 Unkno wn History nitroglycerin 0.3 mg sublingual 0.3 mg sublingual Q5M PRN chest 09/10/24 Unknown History tablet pain paroxetine HCl 40 mg tablet 40 mg PO DAILY 09/10/24 Un known History amoxicillin 875 mg-potassium 1 tab PO BIDCM #11 tabs 0 09/12/24 Unknown Rx clavulanate 125 mg tablet atenolol 50 mg tablet 50 mg PO DAILY #30 tabs 08/01 Unknown Rx furosemide 40 mg tablet (Lasix) 40 mg PO BID #60 tabs 09/12/24 Unknown Rx warfarin 2.5 mg tablet (Jantoven) 5 mg (2 x 2.5 mg) PO 1700 #60 tabs 09/12/24 Unknown Rx Allergy/AdvReac Type Severity Reaction Status Date / Time oxycodone (From Percodan) Allergy Other Verified 09/16/24 18:21 Surgical History History of coronary artery stent placement (12/16/21) Cataract extraction status History of hip replacement History of open heart surgery Social History Smoking Status: Former smoker quit date: 02/08/92 pack-years: 37 Tobacco: How many years used: 20 alcohol intake: never substance use type: does not use ROS ROS ED Constitutional Constitutional ED: Reports systems reviewed and no addt'l complaints, except as documented; Denies body ache(s), change in weight or chills Eyes Eyes: Denies acute decrease in peripheral vision, change in vision, double vision or loss of vision ENT ENT ED: Reports none; Denies ear pain, lip swelling, loss taste/smell, neck pain, otalgia or sore throat Cardiovascular Cardiovascular: Reports none; Denies abdominal pain, chest pain, chest pain withactivity, leg edema, lightheadedness, palpitations, racing heartbeat, rapid heart rate or syncope Respiratory/Chest Respiratory/Chest: Reports none; Denies change in mental status, dry cough, dyspnea, hemoptysis, shortness of breath at rest or shortness of breath with exertion Gastrointestinal Gastrointestinal: Reports none; Denies abdominal pain, change in stool character, diarrhea, hematemesis, hematochezia, melena, rectal bleeding or vomiting Genitourinary Genitourinary ED: Reports none; Denies abdominal discomfort, anuria, dysuria, genital pain or polyuria Musculoskeletal Musculoskeletal: Reports none; Denies arthralgias, back pain, difficulty walking, extremity pain, muscle weakness or myalgias Integumentary Reports none; Denies abscess or rash Neurologic Neurologic: Reports none and confusion; Denies abnormal gait, focal weakness, frequent falls, headache(s), loss of vision, numbness, paresthesias, radicular pain, vertigo or weakness Psychiatric Psychiatric: Reports systems reviewed and no addt'l complaints, except as documented and none; Denies behavioral changes, confusion, difficulty concentrating, hallucinations, suicidal ideation, tactile hallucinations or visual hallucinations Endocrine Endocrinology: Denies none, cold intolerance, excessive sweating, fatigue or heat intolerance Hematologic/Lymphatic Hematologic/Lymphatic: Reports none; Denies anemia, easy bleeding or easy bruising Allergic/Immunologic Allergic/Immunologic ED: Denies as per HPI, none, lip swelling, mouth swelling, throat swelling, tongue swelling or hives EXAM Physical Exam Const Vital Signs: 09/16/24 18:21 09/16/24 18:27 09/16/24 18:31 Temperature 97.7 F L 98.2 F Temperature Source Temporal Oral Pulse Rate 95 100 Respiratory Rate 14 22 H Respiratory Pattern Normal Blood Pressure 122/72 H 133/74 H Blood Pressure Mean 88 93 Pulse Ox 97 95 Oxygen Delivery Method Nasal Cannula Nasal Cannula Oxygen Flow Rate (L/min) 4 2 09/16/24 19:31 09/16/24 20:00 09/16/24 20:50 Temperature 98.3 F 98.7 F 98.7 F Temperature Source Oral Oral Pulse Rate 90 90 90 Respiratory Rate 18 18 18 Respiratory Pattern Blood Pressure 140/87 H 146/70 H 146/70 H Blood Pressure Mean 104 95 95 Pulse Ox 98 98 98 Oxygen Delivery Method Room Air Room Air Oxygen Flow Rate (L/min) 09/16/24 21:00 Temperature 98.3 F Temperature Source Oral Pulse Rate 100 Respiratory Rate 20 H Respiratory Pattern Blood Pressure 149/72 H Blood Pressure Mean 97 Pulse Ox 98 Oxygen Delivery Method Room Air Oxygen Flow Rate (L/min) Positive well nourished and well developed General Appearance ED: well developed and NAD HEENT Reports TM's clear and moist mucous membranes normocephalic and atraumatic; Negative for trauma or tenderness Tympanic Membrane ED: Yes TM's clear Eyes PERRL and EOMs intact bilaterally General Eye ED: Negative for pale conjunctiva or scleral icterus Neck no lymphadenopathy, supple and no JVD General: Negative for tenderness Chest Wall inspection of chest normal and palpation of chest normal Chest: Negative for tenderness Resp normal respiratory effort and clear to auscultation bilaterally Effort and Inspection: Negative for respiratory distress or pain with movement Auscultation: Negative for rhonchi, wheezes or diminished lung sounds Cardio regular rate, regular rhythm, S1 normal heart sound, S2 normal heart sound and no murmurs Peripheral Pulses: pulses 2+ throughout GI normal to inspection, nondistended, normoactive bowel sounds, soft to palpation,non-tender, non-distended and no masses Back/Spine no CVA tenderness and no thoracic nor lumbar tenderness Extremity normal to inspection General Extremety ED: Negative for edema General Extremity: Negative for edema Neuro oriented x3, CN's II-XII intact bilaterally, no sensory deficits noted and gait normal Sensorium / Orientation: awake, alert, oriented to person, oriented to place andoriented to time Motor Exam: strength 5/5 throughout and strength abnormal Psych mental status grossly normal Skin no rashes or lesions noted and no wounds MDM MDM MDM Narrative Medical decision making narrative: Patient presents from home with concern for confusion. Patient apparently will intermittently twitch. He has been talking in his sleep. At times not making sense. Family concerned about possibility of stroke. He is had symptoms for more than 24 hours. Patient recently discharged home after being admitted for CHF and pneumonia. Clinically he seems appropriate and answering questions appropriately. IV line established. CBC with differential obtained showed white count of 18.0 with hemoglobin 13.9 platelet count of 201. Chemistries were unremarkable. BUN 24 creatinine 0.81. Glucose 112. Urinalysis without signs of infection. 1 view chest x-ray obtained showed an elevated right hemidiaphragm and no obvious infiltrate on my evaluation. CT scan of the brain without contrast was unremarkable. Discussed results with patient and family. He is complaining of feeling anxious so I gave him a milligram of Ativan. He isfeeling markedly improved with the Ativan but now more somnolent. Etiology of symptoms unclear as far as the confusion and the intermittent twitching that family describes. Patient continues with leukocytosis. Will discuss with hospitalist to evaluate for admission. Lab Data Attestation: I reviewed the patient's lab results. Labs: Laboratory Results - last 24 hr 09/16/24 09/16/24 18:25 19:38 WBC 18.0 H RBC 4.62 Hgb 13.9 Hct 44.0 MCV 95.2 H MCH 30.1 MCHC 31.6 L RDW Std Deviation 46.3 H RDW Coeff of Erica 13.2 Plt Count 201 MPV 9.1 Immature Gran % (Auto) 1.800 H Neut % (Auto) 85.4 H Lymph % (Auto) 4.6 L [place] % (Auto) 4.1 Eos % (Auto) 3.7 Baso % (Auto) 0.4 Absolute Neuts (auto) 15.3 H Absolute Lymphs (auto) 0.83 Nucleated RBC % 0 PT 32.4 H INR 3.1 Sodium 138 Potassium 4.6 Chloride 93 L Carbon Dioxide 35.6 H Anion Gap 9 BUN 24 H Creatinine 0.81 Estim Creat Clear Calc 80.91 Est GFR (MDRD) Non-Af 87 BUN/Creatinine Ratio 29.2 H Glucose 112 H Calcium 9.3 Urine Color Yellow Urine Clarity Clear Urine pH 7.0 Ur Specific [place] 1.010 Urine Protein 30 H Urine Glucose (UA) Normal Urine Ketones Negative Urine Occult Blood 250 H Urine Nitrite Negative Urine Bilirubin Negative Urine Urobilinogen 4 H Ur Leukocyte Esterase 25 H Urine RBC 5-10 SEEN Urine WBC 0-5 SEEN Ur Squamous Epith Cells 0-5 SEEN Urine Bacteria 1+ Hyaline Casts 10-25 SEEN Urine Mucus 0 SEEN Radiography Diagnostic Testing: Clinical Impression(s) from Imaging Studies Brain CT 09/16/24 18:50 IMPRESSION: No acute intracranial finding. Reading Location: [facility] 1 view chest x-ray obtained interpreted by myself as elevated right hemidiaphragm with without evidence of acute infiltrate or pneumothorax or acutedisease process. EKG Initial EKG: Attestation: I personally reviewed and interpreted this EKG as follows: Comments: Atrial fibrillation with ventricular rate of 101 bpm with no acute ST segment changes Discharge Plan Triage Chief Complaint: General Illness ED Provider: Chris Cole Dx/Rx/DC Orders Clinical Impression: Altered mental status, Anxiety, Leukocytosis Prescriptions: No Action levothyroxine 50 MCG tablet 50 mcg PO [...] 40 mg tablet 40 mg PO DAILY warfarin [Jantoven] 2.5 mg Tablet 5 mg PO 1700 Qty: 60 0RF atenolol 50 mg Tablet 50 mg PO DAILY Qty: 30 0RF amoxicillin-pot clavulanate 875-125 mg Tablet 1 tab PO BIDCM Qty: 11 0RF Rx Instructions: Take with food furosemide [Lasix] 40 mg tablet 40 mg PO BID Qty: 60 0RF Primary Care Provider: Shayne Zaidi Referrals: Shayne Zaidi MD [Primary Care Provider] - Print Language: Burundian What to do if you have Problems For any increased pain, shortness of breath, bleeding, nausea or vomiting, chestpain, or any unexpected problems, contact your Primary Care Provider. Call [facility] ([phone]) or report to the closest Emergency Room. Call 911 if necessary. 09/16/[id number] <Electronically signed by Chris Cole DO> Cosigner Signature (if applicable): CC: Dr. Shayne Zaidi MD ~ Signed [facility] Work Phone: 1([phone] 851-431608-10-2025 History and physical note Author Olivia Walters [facility] Note Date/Time September 16, 2024 9: 41pm [facility] Medical Records Department [address] [place] [id number] H&P Exam - Hospitalist 09/16/242118 MR#: [id number] Acct: [id number] Name: TYLOR PEDERSEN Rep #:[id number] : 1940 83 From: Olivia Walters MD PCP: Dr. Shayne Zaidi MD Status:ADM MARICARMEN Location: [place] [address] HPI - General General Date of Admission: 09/16/24 Date of Service: 09/16/24 Chief Complaint: Confusion HPI Narrative The patient is an 83 y/o M w/ PMHx: Obesity, HTN, HLD, CAD s/p CABG x 2 and PCI,HFpEF, Hypothyroidism, Chronic neuropathy, CKD stage II per GFR trending, Hx CVA, Anxiety and Depression/Panic attacks, recent discharge 09/12/24 following evaluation and treatment of chronic hypoxic respiratory failure secondary to acute HFrEF exacerbation in addition to aspiration pneumonia discharged on Augmentin as well as PAF with RVR with atenolol increased by cardiology during previous evaluation and continuation of patient Coumadin with INR trending to now re-presents to the [facility] ED on 09/16/2024 with history of reported confusion that started the evening prior with family noting concern for hallucinations with patient upon arrival not understanding why he was brought to the ED but noting he is very anxious and requesting medication. Workup in the ED included T97.7, heart 95, BP 122/72, respiratory rate 14, 97% on 3 L nasal cannula with most recent repeat vitals T98.3, heart rate 100, BP 149/72, respiratory rate 20, 98% on 3 L nasal cannula, CBC with WBC 18, hemoglobin 13.9, platelet 201 with left shift, coags with INR 3.1, BMP with chloride 93,, taxine 35.6, anion gap 9, BUN/creatinine 24/0.81, glucose 112, urinalysis with no obvious evidence of UTI, CT brain with no acute intracranial finding, chest x-ray similar to recent however waiting on final read per radiology. In the ED patient ministered Ativan 1 mg IV x 1 secondary to complaints of significant sensation of anxiety requesting medication. In the ED patient administered MIVFs. [facility] Medical History Atherosclerosis of coronary artery of [place] heart without angina pectoris Prostate CA Stroke [...] PO DAILY@0800 heal th 12/14/21 12/14/21 History potassium chloride 10 mEq 20 meq PO DAILY supplement 1 02/13/21 12/14/21 History tablet,extended release albuterol sulfate 90 mcg/actuation 2 puff inhalation Q 4H PRN PRN 03/15/23 Unknown Rx aerosol inhaler (Ventolin HFA) Wheezing ##1 fluticasone 250 mcg-salmeterol 50 1 inh inhalation Q12 H 09/10/24 Unknown History mcg/dose blistr powdr for inhalation gabapentin 300 mg capsule 300 mg PO BID 09/10/24 Unkno wn History nitroglycerin 0.3 mg sublingual 0.3 mg sublingual Q5M PRN chest 09/10/24 Unknown History tablet pain paroxetine HCl 40 mg tablet 40 mg PO DAILY 09/10/24 Un known History amoxicillin 875 mg-potassium 1 tab PO BIDCM #11 tabs 0 09/12/24 Unknown Rx clavulanate 125 mg tablet atenolol 50 mg tablet 50 mg PO DAILY #30 tabs 08/01 Unknown Rx furosemide 40 mg tablet (Lasix) 40 mg PO BID #60 tabs 09/12/24 Unknown Rx warfarin 2.5 mg tablet (Jantoven) 5 mg (2 x 2.5 mg) PO 1700 #60 tabs 09/12/24 Unknown Rx Allergy/AdvReac Type Severity Reaction Status Date / Time oxycodone (From Percodan) Allergy Other Verified 09/16/24 18:21 Surgical History History of coronary artery stent placement (12/16/21) Cataract extraction status History of hip replacement History of open heart surgery Social History (Updated 09/16/24 @ 21:[address] Olivia Wlaters MD) household members: family Smoking Status: Former smoker quit date: 02/08/92 pack-years: 37 Tobacco: How many years used: 20 alcohol intake: never substance use type: does not use ROS Review of Systems ROS Unobtainable: due to encephalopathy Vital Signs Vital Signs Vital Signs: 09/16/24 18:21 09/16/24 18:27 09/16/24 18:31 Temperature 97.7 F L 98.2 F Temperature Source Temporal Oral Pulse Rate 95 100 Respiratory Rate 14 22 H Respiratory Pattern Normal Blood Pressure 122/72 H 133/74 H Blood Pressure Mean 88 93 Pulse Ox 97 95 Oxygen Delivery Method Nasal Cannula Nasal Cannula Oxygen Flow Rate (L/min) 4 2 09/16/24 19:31 09/16/24 20:00 09/16/24 20:50 Temperature 98.3 F 98.7 F 98.7 F Temperature Source Oral Oral Pulse Rate 90 90 90 Respiratory Rate 18 18 18 Respiratory Pattern Blood Pressure 140/87 H 146/70 H 146/70 H Blood Pressure Mean 104 95 95 Pulse Ox 98 98 98 Oxygen Delivery Method Room Air Room Air Oxygen Flow Rate (L/min) 09/16/24 21:00 Temperature 98.3 F Temperature Source Oral Pulse Rate 100 Respiratory Rate 20 H Respiratory Pattern Blood Pressure 149/72 H Blood Pressure Mean 97 Pulse Ox 98 Oxygen Delivery Method Room Air Oxygen Flow Rate (L/min) Weight Weight: 215 lb 6.266 oz Body Mass Index (BMI) 30.0 Physical Exam Narrative Physical Examination: General: Awakens to stimuli but very fatigued and lethargic, recent sedated medication in the ED, not markedly alert as a result, not able to answer orientation questions, laying in the ED bed, airway appropriate. Skin: Normal color, normal turgor, no icterus, no cyanosis except occasional stage ecchymoses, abrasion, bilateral lower extremity venous stasis skin changes. HEENT: AT/NC, EOM unable to be assessed well given recent sedated regimen/lethargy, PERRLA, MMM, no carotid bruits, no marked JVD noted. Lungs: Diminished, greater bases, mildly increased respiratory rate but no distress, no significantly appreciated rales, ronchi or wheezing. Heart: Regular rate, regular; no gallop, rub audible. Abdomen: Soft, obese, NTTP, ND, distant normal BS, no appreciated HSM. Extremities: No cyanosis, no clubbing, mild ankle bilateral not markedly pittingedema, see skin. Neurological: Awakens to stimuli but very fatigued and lethargic, recent sedatedmedication in the ED, not markedly alert as a result, not able to answer orientation questions, laying in the ED bed, airway appropriate, cognitive function not baseline intact, pupils equally reactive to light and accommodation, cranial nerves difficult to assess given recent sedated medication, spontaneously moving extremities, no obvious focal deficits but difficult exam given recent sedation, strength accordingly severely globally decreased Psychiatric: Affect appears flat, lethargic following recent sedated ED medication, no acute evidence of depressive or anxiety feelings but does have underlying history. Results Lab / Micro Data 09/16/24 18:25 09/16/24 18:25 Labs: Laboratory Results - last 24 hr 09/16/24 18:25: WBC 18.0 H, RBC 4.62, Hgb 13.9, Hct 44.0, MCV 95.2 H, MCH 30.1, MCHC 31.6 L, RDW Std Deviation 46.3 H, RDW Coeff of Erica 13.2, Plt Count 201, MPV9.1, Immature Gran % (Auto) 1.800 H, Neut % (Auto) 85.4 H, Lymph % (Auto) 4.6 L,[place]ham % (Auto) 4.1, Eos % (Auto) 3.7, Baso % (Auto) 0.4, Absolute Neuts (auto) 15.3 H, Absolute Lymphs (auto) 0.83, Nucleated RBC % 0, PT 32.4 H, INR 3.1, Sodium 138, Potassium 4.6, Chloride 93 L, Carbon Dioxide 35.6 H, Anion Gap 9, BUN 24 H, Creatinine 0.81, Estim Creat Clear Calc 80.91, Est GFR (MDRD) Non-Af 87, BUN/Creatinine Ratio 29.2 H, Glucose 112 H, Calcium 9.3 09/16/24 19:38: Urine Color Yellow, Urine Clarity Clear, Urine pH 7.0, Ur Specific Holland 1.010, Urine Protein 30 H, Urine Glucose (UA) Normal, Urine Ketones Negative, Urine Occult Blood 250 H, Urine Nitrite Negative, Urine Bilirubin Negative, Urine Urobilinogen 4 H, Ur Leukocyte Esterase 25 H, Urine RBC 5-10 SEEN, Urine WBC 0-5 SEEN, Ur Squamous Epith Cells 0-5 SEEN, Urine Bacteria 1+, Hyaline Casts 10-25 SEEN, Urine Mucus 0 SEEN Imaging Radiology Impression Brain CT 09/16/24 18:50 IMPRESSION: No acute intracranial finding. Reading Location: [facility] Assessment & Plan Assessment/Plan (1) Altered mental status: (2) Leukocytosis: PLAN: Plan The patient is an 83 y/o M w/ PMHx: Obesity, HTN, HLD, CAD s/p CABG x 2 and PCI,HFpEF, Hypothyroidism, Chronic neuropathy, CKD stage II per GFR trending, Hx CVA, Anxiety and Depression/Panic attacks, recent discharge 09/12/24 following evaluation and treatment of chronic hypoxic respiratory failure secondary to acute HFrEF exacerbation in addition to aspiration pneumonia discharged on Augmentin as well as PAF with RVR with atenolol increased by cardiology during previous evaluation and continuation of patient Coumadin with INR trending to now re-presents to the [facility] ED on 09/16/2024 with history of reported confusion that started the evening prior with family noting concern for hallucinations with patient upon arrival not understanding why he was brought to the ED but noting he is very anxious and requesting medication. #1. Reported altered mental status, questionable hallucinations, unclear exact etiology with leukocytosis (of note during recent admission was on IV Solu- Medrol certainly could elevated in relation to this but uncertain): Will admit to PCU, maintain on fall and aspiration precautions, will obtain ammonia level as well as ABG in addition to procalcitonin, will continue patient's Augmentin regimen however low threshold to transition to IV regimen if necessary, will avoid aggressive hydration given recent presentation with heart failure exacerbation, TSH and magnesium also requested, will maintain on telemetry to ensure no arrhythmia and will cycle cardiac enzymes, PT/OT/case management consulted for discharge planning. If there is no obvious source and patient remains confused may need to consider MRI of the brain however lower suspicion for stroke given therapeutic INR. #2. Recent Acute HFpEF Exacerbation: Chest x-ray appears similar to previous however awaiting final read per radiology, will continue Coumadin with INR trending, statin therapy, atenolol, spironolactone, Lasix regimen, avoid aggressive hydration, discontinue IV fluids initiated in the ED, most recent echocardiogram during recent admission 09/10/2024 with normal LV size, LV systolicfunction lower limits of normal, EF 53%, mild focal MV calcification, bileaflet,PASP 40 mmHg. #3. Recent aspiration pneumonia: Will maintain on aspiration precautions, will reconsult speech therapy, will continue oral Augmentin regimen, will continue diet adjustment with nectar thickened liquids. #4. PAF: Recent presentation with RVR likely related to pulmonary condition upon presentation, will continue patient home Coumadin with INR trending as wellas atenolol home regimen. #5. CAD: Status post previous CABG x 2 and PCI noted of the distal left main and then the circumflex artery, also saphenous vein graft to the obtuse marginalbranch and ECHEVARRIA to the LAD previously noted to be patent with an occluded right coronary artery and [id number] collaterals evident, will continue baby aspirin, Coumadin with INR trending, statin therapy, atenolol, not on ISSAC inhibitor/ARB potentially secondary to underlying CKD stage II but uncertain. #6. Chronic COPD with chronic hypoxic respiratory failure: Will maintain on 3 LNC home oxygen supplementation, temporarily hold home inhaler and transition interim to ATC budesonide therapy given PAF with RVR recent presentation concurrently, PRN albuterol, HOB, IS parameters. #7. Hypertension: Continue home regimen including spironolactone, Lasix, atenolol with hold parameters as needed, PRN hydralazine. #8. Hyperlipidemia: Will continue patient home statin therapy. #9. Hypothyroidism: Will continue patient on levothyroxine regimen, TSH requested. #10. Chronic neuropathy: Will cautiously continue patient on gabapentin regimen, low threshold to hold for sedation. #11. History of CVA: Patient with history of previous strokes including left brainstem stroke, will continue to baby aspirin, Coumadin with INR trending, statin therapy, hypertensive regimen as noted. #12. Chronic Kidney Disease Stage II, per GFR trending: Admission BUN/Cr 24/0.1, GFR 87, baseline renal function 0.6-0.9, repeat BMP in AM. #13. Anxiety and depression, panic attacks: Will continue patient on paroxetineregimen. Administered low-dose IV Ativan in the ED however patient following asexpected is somnolent thus will avoid further administration if able. #14. Obesity: Weight loss and lifestyle changes encouraged. #15. DVT prophylaxis: Will continue Coumadin with INR trending, 3.1 upon admission. #16. CODE status: Full Code. Charges/Coding Visit Charges Inpatient E&M: 94945 Init Hosp L3 09/16/24 [id number] <Electronically signed by Olivia Walters MD> Cosigner Signature (if applicable): CC: Dr. Olivia Walters MD; Dr. Shayne Zaidi MD~ Signed [facility] Work Phone: 1(376) 699-529008-10-2025 Discharge summary [facility] Medical Records Department [address] [place] [address] Emergency Department Summary 09/16/24 MR#: [id number] Acct: [id number] Name: TYLOR PEDERSEN Rep #:[id number] : 1940 83 From: Chris Cole DO PCP: Dr. Shayne Zaidi MD Status:ADM MARICARMEN Location: [place] [address] HPI History of Present Illness Chief Complaint: General Illness Detail of Chief Complaint: Confusion Informant: patient Narrative Narrative: Patient presents to the emergency department complaint of some confusion that started last evening.Patient apparently at times will kind of twitch in his sleep and then when he woke up he started talking to his son and told him to give medications to his other son. Really was not making much sense. He was admitted recently to the hospital for pneumonia. Currently on an antibiotic. He denies headache. Denies chest pain. Denies abdominal pain. Denies urinary symptoms. He has not had a fever. He does wear home O2 for history of COPD. Patient really does not know why he is here and states that other than feeling anxious he really has no complaints. [facility] Medical History Atherosclerosis of coronary artery of [place] heart without angina pectoris Prostate CA Stroke [...] PO DAILY@0800 heal th 12/14/21 12/14/21 History potassium chloride 10 mEq 20 meq PO DAILY supplement 1 02/13/21 12/14/21 History tablet,extended release albuterol sulfate 90 mcg/actuation 2 puff inhalation Q 4H PRN PRN 03/15/23 Unknown Rx aerosol inhaler (Ventolin HFA) Wheezing ##1 fluticasone 250 mcg-salmeterol 50 1 inh inhalation Q12 H 09/10/24 Unknown History mcg/dose blistr powdr for inhalation gabapentin 300 mg capsule 300 mg PO BID 09/10/24 Unkno wn History nitroglycerin 0.3 mg sublingual 0.3 mg sublingual Q5M PRN chest 09/10/24 Unknown History tablet pain paroxetine HCl 40 mg tablet 40 mg PO DAILY 09/10/24 Un known History amoxicillin 875 mg-potassium 1 tab PO BIDCM #11 tabs 0 09/12/24 Unknown Rx clavulanate 125 mg tablet atenolol 50 mg tablet 50 mg PO DAILY #30 tabs 08/01 Unknown Rx furosemide 40 mg tablet (Lasix) 40 mg PO BID #60 tabs 09/12/24 Unknown Rx warfarin 2.5 mg tablet (Jantoven) 5 mg (2 x 2.5 mg) PO 1700 #60 tabs 09/12/24 Unknown Rx Allergy/AdvReac Type Severity Reaction Status Date / Time oxycodone (From Percodan) Allergy Other Verified 09/16/24 18:21 Surgical History History of coronary artery stent placement (12/16/21) Cataract extraction status History of hip replacement History of open heart surgery Social History Smoking Status: Former smoker quit date: 02/08/92 pack-years: 37 Tobacco: How many years used: 20 alcohol intake: never substance use type: does not use ROS ROS ED Constitutional Constitutional ED: Reports systems reviewed and no addt'l complaints, except as documented; Denies body ache(s), change in weight or chills Eyes Eyes: Denies acute decrease in peripheral vision, change in vision, double vision or loss of vision ENT ENT ED: Reports none; Denies ear pain, lip swelling, loss taste/smell, neck pain, otalgia or sore throat Cardiovascular Cardiovascular: Reports none; Denies abdominal pain, chest pain, chest pain withactivity, leg edema, lightheadedness, palpitations, racing heartbeat, rapid heart rate or syncope Respiratory/Chest Respiratory/Chest: Reports none; Denies change in mental status, dry cough, dyspnea, hemoptysis, shortness of breath at rest or shortness of breath with exertion Gastrointestinal Gastrointestinal: Reports none; Denies abdominal pain, change in stool character, diarrhea, hematemesis, hematochezia, melena, rectal bleeding or vomiting Genitourinary Genitourinary ED: Reports none; Denies abdominal discomfort, anuria, dysuria, genital pain or polyuria Musculoskeletal Musculoskeletal: Reports none; Denies arthralgias, back pain, difficulty walking, extremity pain, muscle weakness or myalgias Integumentary Reports none; Denies abscess or rash Neurologic Neurologic: Reports none and confusion; Denies abnormal gait, focal weakness, frequent falls, headache(s), loss of vision, numbness, paresthesias, radicular pain, vertigo or weakness Psychiatric Psychiatric: Reports systems reviewed and no addt'l complaints, except as documented and none; Denies behavioral changes, confusion, difficulty concentrating, hallucinations, suicidal ideation, tactile hallucinations or visual hallucinations Endocrine Endocrinology: Denies none, cold intolerance, excessive sweating, fatigue or heat intolerance Hematologic/Lymphatic Hematologic/Lymphatic: Reports none; Denies anemia, easy bleeding or easy bruising Allergic/Immunologic Allergic/Immunologic ED: Denies as per HPI, none, lip swelling, mouth swelling, throat swelling, tongue swelling or hives EXAM Physical Exam Const Vital Signs: 09/16/24 18:21 09/16/24 18:27 09/16/24 18:31 Temperature 97.7 F L 98.2 F Temperature Source Temporal Oral Pulse Rate 95 100 Respiratory Rate 14 22 H Respiratory Pattern Normal Blood Pressure 122/72 H 133/74 H Blood Pressure Mean 88 93 Pulse Ox 97 95 Oxygen Delivery Method Nasal Cannula Nasal Cannula Oxygen Flow Rate (L/min) 4 2 09/16/24 19:31 09/16/24 20:00 09/16/24 20:50 Temperature 98.3 F 98.7 F 98.7 F Temperature Source Oral Oral Pulse Rate 90 90 90 Respiratory Rate 18 18 18 Respiratory Pattern Blood Pressure 140/87 H 146/70 H 146/70 H Blood Pressure Mean 104 95 95 Pulse Ox 98 98 98 Oxygen Delivery Method Room Air Room Air Oxygen Flow Rate (L/min) 09/16/24 21:00 Temperature 98.3 F Temperature Source Oral Pulse Rate 100 Respiratory Rate 20 H Respiratory Pattern Blood Pressure 149/72 H Blood Pressure Mean 97 Pulse Ox 98 Oxygen Delivery Method Room Air Oxygen Flow Rate (L/min) Positive well nourished and well developed General Appearance ED: well developed and NAD HEENT Reports TM's clear and moist mucous membranes normocephalic and atraumatic; Negative for trauma or tenderness Tympanic Membrane ED: Yes TM's clear Eyes PERRL and EOMs intact bilaterally General Eye ED: Negative for pale conjunctiva or scleral icterus Neck no lymphadenopathy, supple and no JVD General: Negative for tenderness Chest Wall inspection of chest normal and palpation of chest normal Chest: Negative for tenderness Resp normal respiratory effort and clear to auscultation bilaterally Effort and Inspection: Negative for respiratory distress or pain with movement Auscultation: Negative for rhonchi, wheezes or diminished lung sounds Cardio regular rate, regular rhythm, S1 normal heart sound, S2 normal heart sound and no murmurs Peripheral Pulses: pulses 2+ throughout GI normal to inspection, nondistended, normoactive bowel sounds, soft to palpation,non-tender, non-distended and no masses Back/Spine no CVA tenderness and no thoracic nor lumbar tenderness Extremity normal to inspection General Extremety ED: Negative for edema General Extremity: Negative for edema Neuro oriented x3, CN's II-XII intact bilaterally, no sensory deficits noted and gait normal Sensorium / Orientation: awake, alert, oriented to person, oriented to place andoriented to time Motor Exam: strength 5/5 throughout and strength abnormal Psych mental status grossly normal Skin no rashes or lesions noted and no wounds MDM MDM MDM Narrative Medical decision making narrative: Patient presents from home with concern for confusion. Patient apparently will intermittently twitch. He has been talking in his sleep. At times not making sense. Family concerned about possibility of stroke. He is had symptoms for more than 24 hours. Patient recently discharged home after being admitted for CHF and pneumonia. Clinically he seems appropriate and answering questions appropriately.IV line established. CBC with differential obtained showed white count of 18.0 with hemoglobin 13.9platelet count of 201. Chemistries were unremarkable. BUN 24 creatinine 0.81. Glucose 112. Urinalysis without signs of infection. 1 view chest x-ray obtained showed an elevated right hemidiaphragm and no obvious infiltrate on my evaluation. CT scan of the brain without contrast was unremarkable. Discussed results with patient and family. He is complaining of feeling anxious so I gave him a milligram of Ativan. He isfeeling markedly improved with the Ativan but now more somnolent. Etiology of symptoms unclear as far as the confusion and the intermittent twitching that family describes. Patientcontinues with leukocytosis. Will discuss with hospitalist to evaluate for admission. Lab Data Attestation: I reviewed the patient's lab results. Labs: Laboratory Results - last 24 hr 09/16/24 09/16/24 18:25 19:38 WBC 18.0 H RBC 4.62 Hgb 13.9 Hct 44.0 MCV 95.2 H MCH 30.1 MCHC 31.6 L RDW Std Deviation 46.3 H RDW Coeff of Erica 13.2 Plt Count 201 MPV 9.1 Immature Gran % (Auto) 1.800 H Neut % (Auto) 85.4 H Lymph % (Auto) 4.6 L [place] % (Auto) 4.1 Eos % (Auto) 3.7 Baso % (Auto) 0.4 Absolute Neuts (auto) 15.3 H Absolute Lymphs (auto) 0.83 Nucleated RBC % 0 PT 32.4 H INR 3.1 Sodium 138 Potassium 4.6 Chloride 93 L Carbon Dioxide 35.6 H Anion Gap 9 BUN 24 H Creatinine 0.81 Estim Creat Clear Calc 80.91 Est GFR (MDRD) Non-Af 87 BUN/Creatinine Ratio 29.2 H Glucose 112 H Calcium 9.3 Urine Color Yellow Urine Clarity Clear Urine pH 7.0 Ur Specific Holland 1.010 Urine Protein 30 H Urine Glucose (UA) Normal Urine Ketones Negative Urine Occult Blood 250 H Urine Nitrite Negative Urine Bilirubin Negative Urine Urobilinogen 4 H Ur Leukocyte Esterase 25 H Urine RBC 5-10 SEEN Urine WBC 0-5 SEEN Ur Squamous Epith Cells 0-5 SEEN Urine Bacteria 1+ Hyaline Casts 10-25 SEEN Urine Mucus 0 SEEN Radiography Diagnostic Testing: Clinical Impression(s) from Imaging Studies Brain CT 09/16/24 18:50 IMPRESSION: No acute intracranial finding. Reading Location: [facility] 1 view chest x-ray obtained interpreted by myself as elevated right hemidiaphragm with without evidence of acute infiltrate or pneumothorax or acutedisease process. EKG Initial EKG: Attestation: I personally reviewed and interpreted this EKG as follows: Comments: Atrial fibrillation with ventricular rate of 101 bpm with no acute ST segment changes Discharge Plan Triage Chief Complaint: General Illness ED Provider: Chris Cole Dx/Rx/DC Orders Clinical Impression: Altered mental status, Anxiety, Leukocytosis Prescriptions: No Action levothyroxine 50 MCG tablet 50 mcg PO [...] 40 mg tablet 40 mg PO DAILY warfarin [Jantoven] 2.5 mg Tablet 5 mg PO 1700 Qty: 60 0RF atenolol 50 mg Tablet 50 mg PO DAILY Qty: 30 0RF amoxicillin-pot clavulanate 875-125 mg Tablet 1 tab PO BIDCM Qty: 11 0RF Rx Instructions: Take with food furosemide [Lasix] 40 mg tablet 40 mg PO BID Qty: 60 0RF Primary Care Provider: Shayne Zaidi Referrals: Shayne Zaidi MD [Primary Care Provider] - Print Language: Burundian What to do if you have Problems For any increased pain, shortness of breath, bleeding, nausea or vomiting, chestpain, or any unexpected problems, contact your Primary Care Provider. Call [facility] ([phone]) or report tothe closest Emergency Room. Call 911 if necessary. 09/16/242153 Cosigner Signature (if applicable): CC: Dr. Shayne Zaidi MD ~ Signed [facility]08-10-2025 History and physical note [facility] Medical Records Department [address] [place] [place] [address] H&P Exam - Hospitalist 09/16/242118 MR#: [id number] Acct: [id number] Name: TYLOR PEDERSEN Rep #:[id number] : 1940 83 From: Olivia Walters MD PCP: Dr. Shayne Zaidi MD Status:ADM MARICARMEN Location: [place] [address] HPI - General General Date of Admission: 09/16/24 Date of Service: 09/16/24 Chief Complaint: Confusion HPI Narrative The patient is an 83 y/o M w/ PMHx: Obesity, HTN, HLD, CAD s/p CABG x 2 and PCI,HFpEF, Hypothyroidism, Chronic neuropathy, CKD stage II per GFR trending, Hx CVA, Anxiety and Depression/Panic attacks,recent discharge 09/12/24 following evaluation and treatment of chronic hypoxic respiratory failure secondary to acute HFrEF exacerbation in addition to aspiration pneumonia discharged on Augmentin as well as PAF with RVR with atenolol increased by cardiology during previous evaluation and continuation of patient Coumadin with INR trending to now re-presents to the [facility] ED on 09/16/2024 with history of reported confusion that started the evening prior with family noting concern for hallucinations with patient upon arrival not understanding why he was brought to the ED but noting he is very anxious and requesting medication. Workup in the ED included T97.7, heart 95, BP 122/72, respiratory rate 14, 97% on 3 L nasal cannula with most recent repeat vitals T98.3, heart [id number], BP 149/72, respiratory rate 20, 98% on 3 L nasal cannula, CBC with WBC 18, hemoglobin 13.9, platelet 201 with left shift, coags with INR 3.1, BMP with chloride 93,, taxine 35.6, anion gap 9, BUN/creatinine 24/0.81, glucose 112, urinalysis with no obvious evidence of UTI, CT brain with no acuteintracranial finding, chest x-ray similar to recent however waiting on final read per radiology. Inthe ED patient ministered Ativan 1 mg IV x 1 secondary to complaints of significant sensation of anxiety requesting medication. In the ED patient administered MIVFs. PFSH Medical History Atherosclerosis of coronary artery of [place] heart without angina pectoris Prostate CA Stroke [...] PO DAILY@0800 heal th 12/14/21 12/14/21 History potassium chloride 10 mEq 20 meq PO DAILY supplement 1 02/13/21 12/14/21 History tablet,extended release albuterol sulfate 90 mcg/actuation 2 puff inhalation Q 4H PRN PRN 03/15/23 Unknown Rx aerosol inhaler (Ventolin HFA) Wheezing ##1 fluticasone 250 mcg-salmeterol 50 1 inh inhalation Q12 H 09/10/24 Unknown History mcg/dose blistr powdr for inhalation gabapentin 300 mg capsule 300 mg PO BID 09/10/24 Unkno wn History nitroglycerin 0.3 mg sublingual 0.3 mg sublingual Q5M PRN chest 09/10/24 Unknown History tablet pain paroxetine HCl 40 mg tablet 40 mg PO DAILY 09/10/24 Un known History amoxicillin 875 mg-potassium 1 tab PO BIDCM #11 tabs 0 09/12/24 Unknown Rx clavulanate 125 mg tablet atenolol 50 mg tablet 50 mg PO DAILY #30 tabs 08/01 Unknown Rx furosemide 40 mg tablet (Lasix) 40 mg PO BID #60 tabs 09/12/24 Unknown Rx warfarin 2.5 mg tablet (Jantoven) 5 mg (2 x 2.5 mg) PO 1700 #60 tabs 09/12/24 Unknown Rx Allergy/AdvReac Type Severity Reaction Status Date / Time oxycodone (From Percodan) Allergy Other Verified 09/16/24 18:21 Surgical History History of coronary artery stent placement (12/16/21) Cataract extraction status History of hip replacement History of open heart surgery Social History (Updated 09/16/24 @ 21:[address] Olivia Walters MD) household members: family Smoking Status: Former smoker quit date: 02/08/92 pack-years: 37 Tobacco: How many years used: 20 alcohol intake: never substance use type: does not use ROS Review of Systems ROS Unobtainable: due to encephalopathy Vital Signs Vital Signs Vital Signs: 09/16/24 18:21 09/16/24 18:27 09/16/24 18:31 Temperature 97.7 F L 98.2 F Temperature Source Temporal Oral Pulse Rate 95 100 Respiratory Rate 14 22 H Respiratory Pattern Normal Blood Pressure 122/72 H 133/74 H Blood Pressure Mean 88 93 Pulse Ox 97 95 Oxygen Delivery Method Nasal Cannula Nasal Cannula Oxygen Flow Rate (L/min) 4 2 09/16/24 19:31 09/16/24 20:00 09/16/24 20:50 Temperature 98.3 F 98.7 F 98.7 F Temperature Source Oral Oral Pulse Rate 90 90 90 Respiratory Rate 18 18 18 Respiratory Pattern Blood Pressure 140/87 H 146/70 H 146/70 H Blood Pressure Mean 104 95 95 Pulse Ox 98 98 98 Oxygen Delivery Method Room Air Room Air Oxygen Flow Rate (L/min) 09/16/24 21:00 Temperature 98.3 F Temperature Source Oral Pulse Rate 100 Respiratory Rate 20 H Respiratory Pattern Blood Pressure 149/72 H Blood Pressure Mean 97 Pulse Ox 98 Oxygen Delivery Method Room Air Oxygen Flow Rate (L/min) Weight Weight: 215 lb 6.266 oz Body Mass Index (BMI) 30.0 Physical Exam Narrative Physical Examination: General: Awakens to stimuli but very fatigued and lethargic, recent sedated medication in the ED, not markedly alert as a result, not able to answer orientation questions, laying in the ED bed, airway appropriate. Skin: Normal color, normal turgor, no icterus, no cyanosis except occasional stage ecchymoses, abrasion, bilateral lower extremity venous stasis skin changes. HEENT: AT/NC, EOM unable to be assessed well given recent sedated regimen/lethargy, PERRLA, MMM, nocarotid bruits, no marked JVD noted. Lungs: Diminished, greater bases, mildly increased respiratory rate but no distress, no significantly appreciated rales, ronchi or wheezing. Heart: Regular rate, regular; no gallop, rub audible. Abdomen: Soft, obese, NTTP, ND, distant normal BS, no appreciated HSM. Extremities: No cyanosis, no clubbing, mild ankle bilateral not markedly pittingedema, see skin. Neurological: Awakens to stimuli but very fatigued and lethargic, recent sedatedmedication in the ED, not markedly alert as a result, not able to answer orientation questions, laying in the ED bed, airway appropriate, cognitive function not baseline intact, pupils equally reactive to light and accom modation, cranial nerves difficult to assess given recent sedated medication, spontaneously moving extremities, no obvious focal deficits but difficult exam given recent sedation, strength accordingly severely globally decreased Psychiatric: Affect appears flat, lethargic following recent sedated ED medication, no acute evidence of depressive or anxiety feelings but does have underlying history. Results Lab / Micro Data 09/16/24 18:25 09/16/24 18:25 Labs: Laboratory Results - last 24 hr 09/16/24 18:25: WBC 18.0 H, RBC 4.62, Hgb 13.9, Hct 44.0, MCV 95.2 H, MCH 30.1, MCHC 31.6 L, RDW Std Deviation 46.3 H, RDW Coeff of Erica 13.2, Plt Count 201, MPV9.1, Immature Gran % (Auto) 1.800 H, Neut % (Auto) 85.4 H, Lymph % (Auto) 4.6 L,Windham % (Auto) 4.1, Eos % (Auto) 3.7, Baso % (Auto) 0.4, Absolute Neuts (auto) 15.3 H, Absolute Lymphs (auto) 0.83, Nucleated RBC % 0, PT 32.4 H, INR 3.1, Sodium 138, Potassium 4.6, Chloride 93 L, Carbon Dioxide 35.6 H, Anion Gap 9, BUN 24 H, Creatinine 0.81, Estim Creat Clear Calc 80.91, Est GFR (MDRD) Non-Af 87, BUN/Creatinine Ratio 29.2 H, Glucose 112 H, Calcium 9.3 09/16/24 19:38: Urine Color Yellow, Urine Clarity Clear, Urine pH 7.0, Ur Specific Holland 1.010, Urine Protein 30 H, Urine Glucose (UA) Normal, Urine Ketones Negative, Urine Occult Blood 250 H, Urine Nitrite Negative, Urine Bilirubin Negative, Urine Urobilinogen 4 H, Ur Leukocyte Esterase 25 H, Urine RBC 5-10 SEEN, Urine WBC 0-5 SEEN, Ur Squamous Epith Cells 0-5 SEEN, Urine Bacteria 1+, Hyaline Casts 10-25 SEEN, Urine Mucus 0 SEEN Imaging Radiology Impression Brain CT 09/16/24 18:50 IMPRESSION: No acute intracranial finding. Reading Location: [facility] Assessment & Plan Assessment/Plan (1) Altered mental status: (2) Leukocytosis: PLAN: Plan The patient is an 83 y/o M w/ PMHx: Obesity, HTN, HLD, CAD s/p CABG x 2 and PCI,HFpEF, Hypothyroidism, Chronic neuropathy, CKD stage II per GFR trending, Hx CVA, Anxiety and Depression/Panic attacks,recent discharge 09/12/24 following evaluation and treatment of chronic hypoxic respiratory failure secondary to acute HFrEF exacerbation in addition to aspiration pneumonia discharged on Augmentin as well as PAF with RVR with atenolol increased by cardiology during previous evaluation and continuation of patient Coumadin with INR trending to now re-presents to the [facility] ED on 09/16/2024 with history of reported confusion that started the evening prior with family noting concern for hallucinations with patient upon arrival not understanding why he was brought to the ED but noting he is very anxious and requesting medication. #1. Reported altered mental status, questionable hallucinations, unclear exact etiology with leukocytosis (of note during recent admission was on IV Solu- Medrol certainly could elevated in relation to this but uncertain): Will admit to PCU, maintain on fall and aspiration precautions, will obtain ammonia level as well as ABG in addition to procalcitonin, will continue patient's Augmentin regimen however low threshold to transition to IV regimen if necessary, will avoid aggressive hydration given recent presentation with heart failure exacerbation, TSH and magnesium also requested, will maintain on telemetry to ensure no arrhythmia and will cycle cardiac enzymes, PT/OT/case management consulted for discharge planning. If there is no obvious source and patient remains confused may need to consider MRI of the brain however lower suspicion for stroke given therapeutic INR. #2. Recent Acute HFpEF Exacerbation: Chest x-ray appears similar to previous however awaiting finalread per radiology, will continue Coumadin with INR trending, statin therapy, atenolol, spironolactone, Lasix regimen, avoid aggressive hydration, discontinue IV fluids initiated in the ED, most recent echocardiogram during recent admission 09/10/2024 with normal LV size, LV systolicfunction lower limits of normal, EF 53%, mild focal MV calcification, bileaflet,PASP 40 mmHg. #3. Recent aspiration pneumonia: Will maintain on aspiration precautions, will reconsult speech therapy, will continue oral Augmentin regimen, will continue diet adjustment with nectar thickened liquids. #4. PAF: Recent presentation with RVR likely related to pulmonary condition upon presentation, willcontinue patient home Coumadin with INR trending as wellas atenolol home regimen. #5. CAD: Status post previous CABG x 2 and PCI noted of the distal left main and then the circumflex artery, also saphenous vein graft to the obtuse marginalbranch and ECHEVARRIA to the LAD previously noted to be patent with an occluded right coronary artery and [id number] collaterals evident, will con tinue baby aspirin, Coumadin with INR trending, statin therapy, atenolol, not on ISSAC inhibitor/ARB potentially secondary to underlying CKD stage II but uncertain. #6. Chronic COPD with chronic hypoxic respiratory failure: Will maintain on 3 LNC home oxygen supplementation, temporarily hold home inhaler and transition interim to ATC budesonide therapy given PAFwith RVR recent presentation concurrently, PRN albuterol, HOB, IS parameters. #7. Hypertension: Continue home regimen including spironolactone, Lasix, atenolol with hold parameters as needed, PRN hydralazine. #8. Hyperlipidemia: Will continue patient home statin therapy. #9. Hypothyroidism: Will continue patient on levothyroxine regimen, TSH requested. #10. Chronic neuropathy: Will cautiously continue patient on gabapentin regimen, low threshold to hold for sedation. #11. History of CVA: Patient with history of previous strokes including left brainstem stroke, willcontinue to baby aspirin, Coumadin with INR trending, statin therapy, hypertensive regimen as noted. #12. Chronic Kidney Disease Stage II, per GFR trending: Admission BUN/Cr 24/0.1, GFR 87, baseline renal function 0.6-0.9, repeat BMP in AM. #13. Anxiety and depression, panic attacks: Will continue patient on paroxetineregimen. Administered low-dose IV Ativan in the ED however patient following asexpected is somnolent thus will avoid further administration if able. #14. Obesity: Weight loss and lifestyle changes encouraged. #15. DVT prophylaxis: Will continue Coumadin with INR trending, 3.1 upon admission. #16. CODE status: Full Code. Charges/Coding Visit Charges Inpatient E&M: 63484 Init Hosp L3 09/16/24 2141 Cosigner Signature (if applicable): CC: Dr. Olivia Walters MD; Dr. Shayne Zaidi MD~ Signed [facility]08-10-2025 Radiology Diagnostic study note [facility] Imaging Services [address] [place], [place] [address] Chest 1 View (Portable) MR#: [id number] Acct: [id number] Name: TYLOR PEDERSEN Rep #: [id number] : 1940 M 83 From: Ishaan Braden MD PCP: Dr. Shayne Zaidi MD Status: ADM MARICARMEN Study:Chest 1 View (Portable) Date of Exam: 09/16/24 Exam# [id number] Ordering Dr: Chani Cole DO PROCEDURE: CHEST 1 VIEW (PORTABLE) 09/16/2024 REASON FOR EXAM: COUGH TECHNIQUE: Frontal view of the chest. COMPARISON: 09/12/2024 FINDINGS: Hardware: Sternotomy wires are present. Heart: Cardiac and mediastinal contours are stable. Lungs: No significant change in the appearance of the lungs. Bones: Degenerative changes are identified within the thoracic spine. Other: Persistent elevation of the right hemidiaphragm. Contrast is noted within the colon. RAD/Chest 1 View (Portable) IMPRESSION: No Acute Findings. Reading Location: [facility] CC: Dr. Shayne Zaidi MD; Dr. Chris Cole DO ~ Stained Glass Artist: Signed [facility]08-10-2025 Radiology Diagnostic study note [facility] Imaging Services [address] [place], [place] [address] Brain/Head without Contrast MR#: [id number] Acct: [id number] Name: TYLOR PEDERSEN Rep #: [id number] : 1940 M 83 From: Fatmata Tesfaye MD PCP: Dr. Shayne Zaidi MD Status: REG ER Study:Brain/Head without Contrast Date of Exa m: 09/16/24 Exam# [id number] Ordering Dr: Chani Cole DO EXAM: BRAIN/HEAD WITHOUT CONTRAST CLINICAL HISTORY: 83 y/o M with CONFUSION. COMPARISON: MRI head 07/26/2019. TECHNIQUE: Routine CT imaging of the head without IV contrast. Additional multiplanar reformats were obtained. Dose reduction techniques were used including intermediate exposure control (AEC),iterative reconstruction technique, and/or mA and/or KV dose adjustments based on patient's size. FINDINGS: The ventricles, sulci and cisterns are mildly prominent, suggestive of brain parenchymal volume loss. There is no evidence of acute intracranial hemorrhage or herniation. There is no midline shift, mass effect, or extra-axialcollection. Chronic lacunar type infarct within the right centrum semiovale. Moderate patchy supratentorialwhite matter hypodensities, compatible with patient age. The pedraza and white matter interfaces are otherwise maintained. Prior ocular lens replacements. The visualized paranasal sinuses and mastoids are unremarkable. No acute calvarial fracture or scalp hematoma. CT/Brain/Head without Contrast IMPRESSION: No acute intracranial finding. Reading Location: [facility] CC: Dr. Shayne Zaidi MD; Dr. Chris Cole DO ~ Stained Glass Artist: Signed [facility]08-06-2025 Progress note Author Aayush Sibley [facility] Note Date/Time September 12, 2024 3:0 9pm [facility] Medical Records Department [address] [place] [address] Progress Note - Hospitalist 09/11/24 1616 MR#: [id number] Acct: [id number] Name: TYLOR PEDERSEN Rep #:[id number] : 1940 83 From: Aayush Sibley DO PCP: Dr. Shayne Zaidi MD Status:ADM IN Location: [facility] [place] [address]- 1 Reason for Visit Chief Complaint: Shortness [...] 50 minutes Charges/Coding Visit Charges Inpatient E&M: 46579 Subs Hosp L3 09/12/24 1509 <Electronically signed by Aayush Sibley DO> Cosigner Signature (if applicable): CC: ~ Signed [facility] Work Phone: 1(352) 535-653208-06-2025 Discharge summary Author Aayush [facility] Note Date/Time September 12, 2024 3:0 3pm [facility] Medical Records Department [address] [facility] [place] [address] Instructions for Home/Discharge Instructions 09/12/24 1439 MR#: [id number] Acct: [id number] Name: TYLOR PEDERSEN Rep #:[id number] : 1940 83 From: Aayush Sibley DO [...] Asif; Patricia Burden; Martínez Mclean; Omar Hidalgo; Tylor Rose NP; Jenny Yancey; Moses Alexis Discharge [...] rechecked) Jenny Yancey PA [Med Staff - [facility]] - Within 2 Weeks (Call for an appointment) Disposition Disposition (needs filled in before D/C Order can be placed): Home, Self Care 09/12/24 7278<Electronically signed by Aayush Sibley DO>Aayush Sibley DO [...] MD; JI Valencia; JI Burgos ~ Signed [facility] Work Phone: 1(834) 159-727008-06-2025 Progress note [facility] Medical Records Department [address] [place] [address] Progress Note - Hospitalist 09/11/24 1616 MR#: [id number] Acct: [id number] Name: TYLOR PEDERSEN Rep #:[id number] : 1940 83 From: Aayush Sibley DO PCP: Dr. Shayne Zaidi MD Status:ADM IN Location: [place] [address] Reason for Visit Chief Complaint: Shortness of [...] 50 minutes Charges/Coding Visit Charges Inpatient E&M: 46273 Subs Hosp L3 09/12/24 1500 Cosigner Signature (if applicable): CC: ~ Signed [facility]08-06-2025 Discharge summary [facility] Medical Records Department [address] [place] [address] Instructions for Home/Discharge Instructions 09/12/24 1432 MR#: [id number] Acct: [id number] Name: TYLOR PEDERSEN Rep #:[id number] : 1940 83 From: Aayush Sibley DO [...] Deutsch; Rocky Coronado; Yoseph Winn; Dallas Muller; Krisotpher Ray; John Nayak; Rosalino Asif; Patricia Burden; Martínez Mclean; Omar Hidalgo; Tylor Rose BROOM HANDLE DIPPER; Jenny Yancey PA; Moses Alexis Discharge Orders/Prescriptions [...] rechecked) Jenny Yancey PA [Med Staff - [facility]] - Within 2 Weeks (Call for an appointment) Disposition Disposition (needs filled in before D/C Order can be placed): Home, Self Care 09/12/24 1503Aayush Sibley DO CC: GABE Rose; Dr. Douglas [...] Martínez Mclean MD; JI Valencia;JI Burgos ~ [facility]08-06-2025 [facility] Medical Records Department [address] [place] [address] Discharge Summary 09/12/24 1503 MR#: [id number] Acct: [id number] Name: TYLOR PEDERSEN Rep #: [id number] : 1940 83 From: Aayush Sibley DO PCP: Dr. Shayne Zaidi MD Status:DIS IN [id number] Prov[facility] Date of Admission: 09/10/24 Date of Discharge: 09/12/24 Primary Care Physician: Dr. Shayne Zaidi MD Consultations 09/10/24 02:01 Consult: Cardiology Routine Consulting Provider: [facility] Reason for Consult: AE CHF, PAF and Chest Pain. EMERGENT Consult: No MD Notified: Yes Date Notified: 09/10/24 Time Notified: 07:02 Method of Notification: Text Reason For Visit: PNA, AE CHF, RESPIRATORY INSUFFICIENCY, ANXIETY Diagnosis Discharge Diagnosis (1) Paroxysmal atrial fibrillation with RVR: Status: Acute Code(s): I48.0 - Paroxysmal atrial fibrillation (2) History of coronary artery stent placement: Status: Acute Code(s): Z95.5 - Presence of coronary angioplasty implant and graft (3) HTN (hypertension): Status: Chronic Code(s): I10 - Essential (primary) hypertension (4) Acute exacerbation of chronic heart failure: Status: Acute Code(s): I50.9 - Heart failure, unspecified (5) Hyperlipidemia: Status: Acute Code(s): E78.5 - Hyperlipidemia, unspecified Plan 1. Acute exacerbation of chronic congestive [...] aspirin daily #9 hypothyroidism-patient is on Synthroid Medications at Discharge Home Medications levothyroxine 50 mcg tablet 50 mcg PO DAILY thyroid 07/25/19 atorvastatin 40 mg tablet 40 mg PO QHS cholesterol 07/28/19 spironolactone 25 mg tablet 25 mg PO DAILY diuretic 07/28/19 aspirin 81 mg chewable tablet 81 mg PO DAILY@0800 health 12/14/21 potassium chloride 10 mEq tablet,extended release 20 meq PO DAILY supplement 12/14/21 albuterol sulfate 90 mcg/actuation aerosol inhaler (Ventolin HFA) 2 puff inhalation Q4H PRN PRN Wheezing ##1 03/15/23 fluticasone 250 mcg-salmeterol 50 mcg/dose blistr powdr for inhalation 1 inh inhalation Q12H 09/10/24 gabapentin 300 mg capsule 300 mg PO BID 09/10/24 nitroglycerin 0.3 mg sublingual tablet 0.3 mg sublingual Q5M PRN chest pain 09/10/24 paroxetine HCl 40 mg tablet 40 mg PO DAILY 09/10/24 amoxicillin 875 mg-potassium clavulanate 125 mg tablet 1 tab PO BIDCM #11 tabs 09/12/24 atenolol 50 mg tablet 50 mg PO DAILY #30 tabs 09/12/24 furosemide 40 mg tablet (Lasix) 40 mg PO BID #60 tabs 09/12/24 warfarin 2.5 mg tablet (Jantoven) 5 mg (2 x 2.5 mg) PO 1700 #60 tabs 09/12/24 Hospital Course Operations None Procedures 2-D Echocardiogram Summary of Care Provided Minutes Spent on Discharge: 31 Hospital Course: This 83-year-old white male was directly admitted to PCU from [place] emergency room with complaints of shortness of breath, chest pain, anxiety, and generalized weakness. Workup at [place] ER included chest x-ray which revealed right hemidiaphragm elevation with a left perihilar opacity and elevated beta natruretic peptide of 2400 consistent with an acute exacerbation of CHF. EKG was obtained which showed atrial fibrillation-patient was known to have a history of paroxysmal A-fib and was on warfarin, white blood cell count was 10.2. Patient was given IV antibiotics for suspected pneumonia, IV Solu-Medrol, DuoNeb aerosol treatments and IV furosemide. Patient was seen in consultation by cardiology, it was recommended that his beta-karis be increased and cardiology felt he had evidence of congestive heart failure and recommended IV Lasix be continued. It was felt that the patient probably had aspiration pneumonia, he was seen by speech therapy who recommended nectar thickened liquids, I went over this with the patient's caregiver. On 09/12/2024, patient was seen and examined:alert, oriented x3 and no apparent distress Constitutional Narrative: Patient appears older than stated age General Appearance: cooperative, well kempt and well developed Orientation / Consciousness: awake, oriented to person, oriented to place and oriented to time HEENT normocephalic, head/scalp atraumatic and moist (more content not included)... [facility]08-06-2025 Hospital Discharge instructionsAdditional Instructions Date of Discharge: 09/12/24[facility] Work Phone: 1(847) 367-821408-06-2025 Radiology Diagnostic study note [facility] Imaging Services [address] [place] [address] Chest PA and Lateral MR#: [id number] Acct: [id number] Name: TYLOR PEDERSEN Rep #: [id number] : 1940 M 83 From: Fatmata Hamlin MD PCP: Dr. Shayne Zaidi MD Status: ADM IN Study:Chest PA and Lateral Date of Exam: 09/12/24 Exam# [id number] Ordering Dr: Aayush Adams DO PROCEDURE: CHEST [...] seen on recent comparison CT Reading Location: [facility]- CC: Dr. Shayne Zaidi MD; Dr. Aayush Sibley DO ~ Stained Glass Artist: Signed [facility]08-05-2025 Procedure note [facility] Speech Pathology [address] [place] [address] Modified Barium Swallow Study MR#: [id number] Acct: [id number] Name: TYLOR PEDERSEN Rep #:[id number] : 1940 83 From: Uyen Silva Modified [...] palpitations, or GI/ symptoms. A CXR at [place] ER showed right hemidiaphragm elevation and left [...] Result: 5= enters airways/contacts vocal folds/not ejected [place] Thick Liquid via small single sip: cup: Result: 2= enter airway/above vocal folds/ejected [place] Thick Liquid via small single sip: cup Trial 2: Result: 3= enters airways/above vocal folds/not ejected [place] Thick Liquid via small single sip: cup [...] Cookie: Result: 1= does not enter airway [place] Thick Liquid via small single sip: cup [...] Status Active ST Patient: Active Contact Information [facility] Speech Therapy:: Uyen Silva M.A., CCC-BLENDER CONVEYOR OPERATOR Speech-Language Pathologist [facility] [phone]? ?FAX [phone]? ?[email or web address] [address] [place] [address]? ?[place] [address] 09/11/24 1330 > Date/Time Uyen Silva Co-Signature Required for all Medicare patients Date/Time Co-Signature CC: ~ [facility]08-05-2025 Progress note Author Dallas Muller [facility] Note Date/Time September 11, 2024 7:4 4am [facility] Medical Records Department [address] [place], [place] [address] [place] [address] Progress Note - Cardiology 09/11/24 0741 MR#: [id number] Acct: [id number] Name: TYLOR PEDERSEN Rep #:[id number] : 1940 83 From: Dallas Muller MD PCP: Dr. Shayne Zaidi MD Status:ADM IN Location: [place] [address] Subjective Subjective Patient seen and evaluated Objective [...] was an occluded right coronary artery with kqjs-em-xhgxs collaterals. * In light of his negative [...] will continue with high intensity statin. 09/11/24 1848 <Electronically signed by Dallas Muller MD> Cosigner Signature (if applicable): CC: ~ Signed [facility] Work Phone: 1(298) 155-972808-05-2025 Progress note [facility] Medical Records Department [facility] [place] [address] Progress Note - Cardiology 09/11/24 0741 MR#: [id number] Acct: [id number] Name: TYLOR PEDERSEN Rep #:[id number] : 1940 83 From: Dallas Muller MD PCP: Dr. Shayne Zaidi MD Status:ADM IN Location: [place] [address] Subjective Subjective Patient seen and evaluated Objective [...] pressure is 40 mmHg. Ordering Physician: Kristopher Valecnia Referring Physician: SHAYNE ZAIDI Performed By: Manju [...] was an occluded right coronary artery with mapi-kk-iffyj collaterals. * In light of his negative [...] diseasewe will continue with high intensity statin. 09/11/24743 Cosigner Signature (if applicable): CC: ~ Signed [facility]08-04-2025 Progress note Author Aayush Sibley [facility] Note Date/Time September 10, 2024 7:2 6pm [facility] Medical Records Department [address] [place] [address] Progress Note - Hospitalist 09/10/241924 MR#: [id number] Acct: [id number] Name: TYLOR PEDERSEN Rep #:[id number] : 1940 83 From: Aayush Sibley DO PCP: Dr. Shayne Zaidi MD Status:ADM IN Location: [place] [address] Hospitalist Note Patient was seen and examined [...] Cosigner Signature (if applicable): CC: ~ Signed [facility] Work Phone: 1(660) 517-724608-04-2025 Progress note [facility] Medical Records Department [address] [place] [address] Progress Note - Hospitalist 09/10/241924 MR#: [id number] Acct: [id number] Name: TYLOR PEDERSEN Rep #:[id number] : 1940 83 From: Aayush Sibley DO PCP: Dr. Shayne Zaidi MD Status:ADM IN Location: [place] [address] Hospitalist Note Patient was seen and examined briefly today, I have reviewed his medical record,I think that it is unlikely the patient has a significant aspiration pneumonia, nonetheless, I have elected to keep thepatient on antibiotics for now but transition him over to oral antibiotics. I talked briefly with cardiology, theyrecommended adjusting the patient's beta-karis. 09/10/241925 Cosigner Signature (if applicable): CC: ~ Signed [facility]08-04-2025 Consult note Author Dallas Muller [facility] Note Date/Time September 10, 2024 8:0 3am [facility] Medical Records Department [address] [place] [address] Consultation - Cardiology 09/10/24750 MR#: [id number] Acct: [id number] Name: TYLOR PEDERSEN Rep #:[id number] : 1940 83 From: Dallas Muller MD PCP: Dr. Shayne Zaidi MD Status:ADM IN Location: [place] [address] Assessment & Plan Assessment/Plan (1) Paroxysmal atrial [...] was an occluded right coronary artery with jffx-ss-ctabs collaterals. * In light of his negative [...] of Consult: 09/10/24 HPI Narrative HPI Narrative: TYLOR PEDERSEN, is a 83 M who we [...] per se. He was apparently sent to [place] and a chest x-ray that I [...] is pleasantly confused but no other problems. [facility] Medical History Atherosclerosis of coronary artery of [place] tribe heart without angina pectoris Prostate CA Stroke [...] 94.5 H, Lymph % (Auto) 2.2 L, [place] % (Auto) 2.8, Eos % (Auto) 0.0, [...] Clarity Clear, Urine pH 6.0, Ur Specific [place] 1.010, Urine Protein Negative, Urine Glucose (UA) [...] 94.5 H, Lymph % (Auto) 2.2 L, [place] % (Auto) 2.8, Eos % (Auto) 0.0, [...] Clarity Clear, Urine pH 6.0, Ur Specific [place] 1.010, Urine Protein Negative, Urine Glucose (UA) [...] disease, correlate for aspiration pneumonia. Reading Location: [place] [address] 09/10/24 0803 <Electronically signed by Dallas Muller MD> Cosigner Signature (if applicable): CC: Dr. Shayne Zaidi MD~ Signed [facility] Work Phone: 1(474) 643-336008-04-2025 NoteHNO ID: [id number] Author: SERA KLINE RN Service: ? Author Type: Registered Nurse Type: Progress Notes Filed: 09/10/2024 10:00 Note Text: Summary: ED Utilization review per request of eula Saab ED Follow-Up Note Provider Action / FYI: Chest pain, pneumonia, CHF Call completed by: RN Patient seen in ED: In Network ED Contact made with Patient: Karen Pt was transferred to [facility] for admission 09/09/24. Sera Kline RN September 10, 2024 9:53 [facility]08-04-2025 History of Present illness Narrative* Sera Kline RN - 09/10/2024 9:51 AM EDTSummary: ED Utilization review per request of payor - [employer] ED Follow-Up Note Provider Action / FYI: Chest pain, pneumonia, CHF Call completed by: RN Patient seen in ED: In [facility] ED Contact made with Patient: Karen Pt was transferred to [facility] for admission 09/09/24. Sera Kline RN September 10, 2024 9:53 AM [facility] History and physical note Author Kristopher Diamond [facility] Note Date/Time September 10, 2024 6:2 5am [facility] Medical Records Department [address] [place] [address] H&P Exam - Hospitalist 09/10/24 0118 MR#: [id number] Acct: [id number] Name: TYLOR PEDERSEN Rep #:[id number] : 1940 83 From: Kristopher Yusuf DO PCP: Dr. Shayne Zaidi MD Status:ADM IN Location: [facility] [id number] HPI - General General Date of Admission: 09/10/24 Date of Service: 09/10/24 Chief Complaint: Shortness of Breath, Cough, Chest Pain, Anxiety and GeneralizedWeakness. HPI Narrative TYLOR PEDERSEN, is a 83 M with a past medical history of essential hypertension; on amlodipine, atenolol and spironolactone, hyperlipidemia; on atorvastatin, hypothyroidism; on levothyroxine, overweight; with BMI of 29.3 this admission, central sleep apnea; on CPAP, CAD; s/p non-ST elevation VT with subsequent CABG x 2 (1992) and [...] hours as needed who was transferred from [place] ER with complaints of shortness of breath, [...] dysuria, hematuria, headache, confusion or rash. At [place] ER he was noted to have a [...] is expected to extend beyond 2 midnights. [facility] Medical History Atherosclerosis of coronary artery of siletz tribe heart without angina pectoris Prostate CA Stroke [...] 03:19 09/10/24 03:19 Labs: RUN DATE: 09/10/24 [facility], DEPARTMENT OF LABORATORIES PAGE 1 RUN TIME: 622 Specimen Inquiry [address], [place], [address] PATIENT: TYLOR PEDERSEN LOC: [facility] U #: [id number] : 1940 AGE/SX: 83/M FACILITY: [facility] ROOM: [facility] RE09/10/[address]: Forest Wilkerson STATUS:ADM IN ED: 1 DIS: ~ SPEC #: [id number] ANASTACIO: 09/10/24 STATUS: COMP REQ #: [id number] RECD: 09/10/[address]: Dr. Kristopher Valencia, DO ENTERED: 09/10/24-0 [facility] DR: Dr. Shayne Zaidi MD ~ Test [...] the following risk-cutoff thresholds for the [place] population. TRIG 42 mg/dL The drugs N-Acetylcysteine [...] and age. CHOL:HDL 2.30 CLDL 40 mg/dL Giafptsxdp=908-619 mg/dL & Higher Kkud=234 mg/dL or greater Friedwald Equation for LDL-C VLDL 8 5-40 mg/dL TSH 0.518 0.300-4.200 uIU/mL Vitamin B12 515 180-914 pg/mL proBNP 3825 H <=1800 pg/mL Heart Failure Unlikely: < 300 pg/mL Heart Failure Likely < 50 Years: > 450 pg/mL 50-75 Years: > 900 pg/mL >75 Years: > 1800 pg/mL ABG Data ABG results: RUN DATE: 09/10/24 [facility], DEPARTMENT OF LABORATORIES PAGE 1 RUN TIME: 0438 Specimen Inquiry [address], [place], [place], [id number] PATIENT: TYLOR PEDERSEN LOC: [facility] U #: [id number] : 1940 AGE/SX: 83/M FACILITY: [facility] ROOM: [facility] RE09/10/[address]: Forest Wilkerson STATUS:ADM IN ED: 1 DIS: ~ SPEC #: [id number] ANASTACIO: 09/10/24 STATUS: COMP REQ #: [id number] RECD: 09/10/[address]: Dr. Kristopher Valencia [...] H 23-33 mmol/L END OF REPORT Imaging [facility] Imaging Services [address] [place] [address] Chest without Contrast MR#: [id number] Acct: [id number] Name: TYLOR PEDERSEN Rep #: [id number] : 1940 M 83 From: Jad Hamlin MD PCP: Dr. Shayne Zaidi MD Status: ADM IN Study: Chest without Contrast Date of Exam: 09/10/24 Exam# [id number] Ordering Dr: Kristopher Valencia DO PROCEDURE: CHEST [...] disease, correlate for aspiration pneumonia. Reading Location: [place] [address] CC: Dr. Kristopher Valencia DO; Dr. Shayne Zaidi MD ~ Stained Glass Artist: Signed Assessment & Plan Assessment/Plan (1) Aspiration [...] twice daily. Give acetaminophen as needed for mphp-di-mhwaiprw (level 1-5/10) pain or fever. Continue tramadol [...] previous. Serialize troponin. Finally, we will consult [facility] to see this patient on [...] 75 minutes. Charges/Coding Visit Charges Inpatient E&M: 90834 Init Hosp L3 09/10/24 0625 <Electronically signed by Kristopher Valencia DO> Cosigner Signature (if applicable): CC: Dr. Kristopher Valencia DO; Dr. Shayne Zaidi MD~ Signed [facility] Work Phone: 1(188) 464-754108-04-2025 Consult note [facility] Medical Records Department [address] [place] [address] Consultation - Cardiology 09/10/24 0751 MR#: [id number] Acct: [id number] Name: TYLOR PEDERSEN Rep #:[id number] : 1940 83 From: Dallas Muller MD PCP: Dr. Shayne Zaidi MD Status:ADM IN Location: [place] [address] Assessment & Plan Assessment/Plan (1) Paroxysmal atrial [...] was an occluded right coronary artery with tnel-vk-udlmp collaterals. * In light of his negative [...] of Consult: 09/10/24 HPI Narrative HPI Narrative: TYLOR PEDERSEN, is a 83 M who we [...] pain per se. He wasapparently sent [facility] and a chest x-ray that I [...] is pleasantly confused but no other problems. [facility] Medical History Atherosclerosis of coronary artery of s[place]tz tribe heart without angina pectoris Prostate CA Stroke [...] 94.5 H, Lymph % (Auto) 2.2 L, [place] % (Auto) 2.8, Eos % (Auto) 0.0, [...] Clarity Clear, Urine pH 6.0, Ur Specific [place] 1.010, Urine Protein Negative, Urine Glucose (UA) [...] 94.5 H, Lymph % (Auto) 2.2 L, [place] % (Auto) 2.8, Eos % (Auto) 0.0, [...] Clarity Clear, Urine pH 6.0, Ur Specific [place] 1.010, Urine Protein Negative, Urine Glucose (UA) [...] disease, correlate for aspiration pneumonia. Reading Location: [place] [address] 09/10/24 0803 Cosigner Signature (if applicable): CC: Dr. Shayne Zaidi MD~ Signed [facility]08-04-2025 History and physical note [facility] Medical Records Department [address] [place] [address] H&P Exam - Hospitalist 09/10/24 0118 MR#: [id number] Acct: [id number] Name: TYLOR PEDERSEN Rep #:[id number] : 1940 83 From: Kristopher Yusuf DO PCP: Dr. Shayne Zaidi MD Status:ADM IN Location: [facility] [id number]- 1 [facility] - General General Date of Admission: 09/10/24 Date of Service: 09/10/24 Chief Complaint: Shortness of Breath, Cough, Chest Pain, Anxiety and GeneralizedWeakness. HPI Narrative TYLOR PEDERSEN, is a 83 M with a past medical history of essential hypertension; on amlodipine, atenolol and spironolactone, hyperlipidemia; on atorvastatin, hypothyroidism; on levothyroxine, overweight; with BMI of 29.3 this admission, central sleep apnea; on CPAP, CAD; s/p non-ST elevation VT with subsequent CABG x 2 (1992) and [...] hours as needed who was transferred from [place] ER with complaints of shortness of breath, [...] dysuria, hematuria, headache, confusion or rash. At [place] ER he was noted to have a [...] is expected to extend beyond 2 midnights. [facility] Medical History Atherosclerosis of coronary artery of [place]ile[place] tribe heart without angina pectoris Prostate CA Stroke [...] 03:19 09/10/24 03:19 Labs: RUN DATE: 09/10/24 [facility], DEPARTMENT OF LABORATORIES PAGE 1 RUN TIME: 622 Specimen Inquiry [address] [place], [address] PATIENT: TYLOR PDEERSEN LOC: [facility] U #: [id number] : 1940 AGE/SX: 83/M FACILITY: [facility] ROOM: [facility] RE09/10/[address]: Forest Wilkerson STATUS:ADM IN ED: 1 DIS: ~ SPEC #: [id number] ANASTACIO: 09/10/24 STATUS: COMP REQ #: [id number] RECD: 09/10/[address]: Dr. Kristopher Valencia DO ENTERED: 09/10/24-[address]: Dr. Shayne Zaidi MD ~ [...] the following risk-cutoff thresholds for the [place] population. TRIG 42 mg/dL The drugs N-Acetylcysteine [...] and age. CHOL:HDL 2.30 CLDL 40 mg/dL Fnpfhljtor=598-197 mg/dL & Higher Uolr=770 mg/dL or greater Friedwald Equation for LDL-C VLDL 8 5-40 mg/dL TSH 0.518 0.300-4.200 uIU/mL Vitamin B12 515 180-914 pg/mL proBNP 3825 H <=1800 pg/mL Heart Failure Unlikely: < 300 pg/mL Heart Failure Likely < 50 Years: > 450 pg/mL 50-75 Years: > 900 pg/mL >75 Years: > 1800 pg/mL ABG Data ABG results: RUN DATE: 09/10/24 [facility], DEPARTMENT OF LABORATORIES PAGE 1 RUN TIME: 0438 Specimen Inquiry [address] [place], [place], [id number] PATIENT: TYLOR PEDERSEN LOC: [facility] U #: [id number] : 1940 AGE/SX: 83/M FACILITY: [facility] ROOM: [facility] RE09/10/[address]: Forest Wilkerson STATUS:ADM IN ED: 1 DIS: ~ SPEC #: [id number] ANASTACIO: 09/10/24 STATUS: COMP REQ #: [id number] RECD: 09/10/[address]: Dr. Kristopher Valencia, [...] H 23-33 mmol/L END OF REPORT Imaging [facility] Imaging Services [address] [place] [address] Chest without Contrast MR#: [id number] Acct: [id number] Name: TYLOR PEDERSEN Rep #: [id number] : 1940 M 83 From: Jad Hamlin MD PCP: Dr. Shayne Zaidi MD Status: ADM IN Study: Chest without Contrast Date of Exam: 09/10/24 Exam# [id number] Ordering Dr: Kristopher Valencia DO PROCEDURE: CHEST [...] disease, correlate for aspiration pneumonia. Reading Location: [place] [address] CC: Dr. Kristopher Valencia DO; Dr. Shayne Zaidi MD ~ Stained Glass Artist: Signed Assessment & Plan Assessment/Plan (1) Aspiration [...] twice daily. Give acetaminophen as needed for yhgk-dn-rrlstkji (level 1-5/10) pain or fever. Continue tramadol [...] previous. Serialize troponin. Finally, we will consult [facility] to see this patient on [...] 75 minutes. Charges/Coding Visit Charges Inpatient E&M: 96481 Init Hosp 09/10/24 0625 Cosigner Signature (if applicable): CC: Dr. Kristopher Valencia DO; Dr. Shayne Zaidi MD~ Signed [facility] [facility]08-04-2025 Evaluation note* Diagnosis Onset Date Resolution [...] chronic September 10, 2024 1:26am HTN (hypertension) September 10, 2024 1:26am [facility] Work Phone: 1(455) 232-728008-04-2025 Evaluation note* Diagnosis Onset Date Resolution Status [...] placement December 16, 2021 acute September 10, 025 1:26am Hyperlipidemia acute September 1:26am Overweight (BMI 25.0-29.9) acute September 10, 2024 1:26am Paroxysmal atrial fibrillation with RVR acute September 1:26am Respiratory insufficiency acute September 10, 2024 1:26am Subtherapeutic anticoagulation acute September 10, 2024 1:26am Tinea cruris acute September 10, 2024 1:26am COPD with acute exacerbation September 10, 2024 1:26am HTN (hypertension) chronic September 10, 2024 1:26am Altered mental status acute Sep 9:19pm Anxiety acute September 16, 2 025 9:19pm Leukocytosis acute September 16, 2024 9:19pm [facility] Work Phone: 1(858) 277-608208-04-2025 Radiology Diagnostic study note [facility] Imaging Services [address] [place] [address] Chest without Contrast MR#: [id number] Acct: [id number] Name: TYLOR PEDERSEN Rep #: [id number] : 1940 M 83 From: Fatmata Hamlin MD PCP: Dr. Shayne Zaidi MD Status: ADM IN Study:Chest without Contrast Date of Exam: 09/10/24 Exam# [id number] Ordering Dr: Kristopher Yang DO PROCEDURE: CHEST [...] disease, correlate for aspiration pneumonia. Reading Location: [place] [address] CC: Dr. Kristopher Valencia DO; Dr. Shayne Zaidi MD ~ Stained Glass Artist: Signed [facility]08-04-2025 NotePatient Outreach ([facility]) TYLOR ([id number]) 1940 M Date Time Provider Department 09/10/24 SERA KLINEG During your visit today, we recorded the following information about you: Sera Kline RN 09/10/2024 10:00 AM Signed ED Follow-Up Note Provider Action / FYI: Chest pain, pneumonia, CHF Call completed by: RN Patient seen in ED: In Network ED Contact made with Patient: Karen Pt was transferred to [facility] for admission 09/09/24. Sera Kline RN September 10, 2024 9:53 AM Allergies As of Date: 09/10/2024 Noted Allergy Reaction ASPIRIN 04/19/2018 16 - Unknown OXYCODONE 04/19/2018 14 - Other: See Comments PERCODAN (OXYCODONE-ASPIRIN) 12/17/2004 1 - Mental Status Change Date Reviewed: 09/09/2024 Reviewed by: Daina Sampson RN - Fully Assessed Reason for Visit: ACM DELMIS RN [2467] Cmt: ED Utilization review per request of [...] Anxiety [F41.9] 12/23/2021 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/19/2017 Cerebrovascular accident (CVA) (HCC) [I63.9] 12/23/2021 [...] 02/14/2024 Encounter Status:Closed by SERA KLINE on 09/10/24[facility] 09-09-2024 IiyxBBDO-MQZ-7 (AGENT OF COVID-19) RNA: Not detected INFLUENZA A RNA: Not detected INFLUENZA B RNA: Not detected RESPIRATORY SYNCYTIAL VIRUS (RSV) RNA: Not detectedFranklin Memorial HospitalComment on above:Performed By: #### [id number] #### [facility] CLIA [id number] [address] [place] [address] OF [id number] Telephone encounter Note* Telephone Encounter - Yudelka [...] seek emergency treatment and she verbalized understanding. [facility]08-02-2025 Miscellaneous Notes* Telephone Encounter - Yudelka Harris [...] and she verbalized understanding. documented in this encounterKing[facility]S [facility] [place]07-30-2025 Telephone encounter Note * Telephone Encounter - Shwetha Kendrick - 09/05/2024 4:33 PM EDT Lvm and letter Provider only at [place] now [facility]07-30-2025 Miscellaneous Notes* Telephone Encounter - Shwetha Kendrick - 09/05/2024 4:33 PM EDT Lvm and letter Provider only at [place] now documented in this encounterKing[facility]S [facility] [place]07-[facility]-2025 Telephone encounter Note * Telephone Encounter - Vivi Shaffer MA - 08/14/2024 2:04 PM EDT Pharmacy verified in [facility] Patient has been identified by name and [...] Not applicable Please advise. Vivi Shaffer MA [facility]07-08-2025 Miscellaneous Notes* Telephone Encounter - Vivi Shaffer MA - 08/14/2024 2:04 PM EDT Pharmacy verified in [facility] Patient has been identified by name and [...] advise. Vivi Shaffer MA documented in this encounterKing'S [facility] [place]06-06-2025 NoteHNO ID: [id number] Author: PADDY ZAIDI MD Service: ? Author Type: Physician Type: Progress Notes Filed: 07/13/2024 17:45 Note Text: Subjective Adrian Pedersen is an 83-year-old male with a history of anxiety, presenting with dyspnea, lower extremity edema, and anxiety attacks, accompanied by his caregiver, Hui Ray, who is providing additional history. Dyspnea atherosclerotic heart disease: Pending electophys eval in [place] in November. No regular orthotic assistant. 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 Atherosclerosis of siletz tribe coronary artery of siletz tribe heart without angina pectoris (I25.10) - Referral to cardiology in [place] initiated for further evaluation and management. - [...] - Prescription sent to pharmacy. Recording using Fantom software for draft documentation of the visit was discussed with the patient/authorized passenger representative; all questions welcomed and answered. Patient/authorized passenger representative agreed to proceed Paddy Zaidi, [facility]06-06-2025 History of Present illness Narrative* Paddy Zaidi MD - 07/13/2024 5:40 PM EDT Subjective Adrian Pedersen is an 83-year-old male with a history of anxiety, presenting with dyspnea, lower extremity edema, and anxiety attacks, accompanied by his caregiver, Hui Ray, who is providing additional history. Dyspnea atherosclerotic heart disease: Pending electophys eval in [place] in November. No regular orthotic assistant. 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 Atherosclerosis of siletz tribe coronary artery of siletz tribe heart without angina pectoris (I25.10) - Referral to cardiology in [place] initiated for further evaluation and management. - [...] - Prescription sent to pharmacy. Recording using Fantom software for draft documentation of the visit was discussed with the patient/authorized passenger representative; all questions welcomed and answered. Patient/authorized passenger representative agreed to proceed Paddy Zaidi MD documented in this encounterKing'S [facility] [place]06-[facility]-2025 Telephone encounter Note * Telephone Encounter - Trey Smith APRN.[facility] - 07/13/2024 4:37 PM EDT Review of OSH CT with most recent CT does not show worsening of right hemidiaphragm. Left lower lobe nodule no longer seen. Atelectasis in LLL but no further concern for PNA. Needs to complete overnight oxygen testing. [facility]06-06-2025 Miscellaneous Notes* Telephone Encounter - Trey Smith APRN.CNP - 07/13/2024 4:37 PM EDT Review of OSH CT with most recent CT does not show worsening of right hemidiaphragm. Left lower lobe nodule no longer seen. Atelectasis in LLL but no further concern for PNA. Needs to complete overnight oxygen testing. documented in this encounterKing'S [facility] [place]06-06-2025 Telephone encounter Note * Telephone Encounter - [...] ZAIDI Due for appt. Paddy Zaidi MD [facility]06-06-2025 Miscellaneous Notes* Telephone Encounter - Paddy Zaidi [...] 13, 2024 1:41 PM documented in this encounterKing'S [facility] [place]06-06-2025 Telephone encounter Note * Telephone Encounter - [...] Summers LPN July 13, 2024 1:41 PM [facility]06-05-2025 Telephone encounter Note* Telephone Encounter - Cassandra Ann LPN - 07/12/2024 11:46 AM EDT [...] CAPSULES BY MOUTH TWICE DAILY FOR NEUROPATHY Cassandra Ann LPN July 12, 2024 11:46 AM [facility]06-05-2025 Miscellaneous Notes* Telephone Encounter - Cassandra Ann LPN - 07/12/2024 11:46 AM EDT [...] CAPSULES BY MOUTH TWICE DAILY FOR NEUROPATHY Cassandra Ann LPN July 12, 2024 11:46 AM documented in this encounterKing'S [facility] [place]05-27-2025 Telephone encounter Note * Telephone Encounter - [...] at this time or wait until OV? [facility]05-27-2025 Miscellaneous Notes* Telephone Encounter - Mary Zaldivar [...] - 06/29/2024 3:43 PM EDT Called patient's healthcare or medical Hui and patient's son, no answer at this time. Left voicemail to call the office back. * Telephone Encounter - Georgiana Hogue APRN.GRANTS ASSISTANT - 06/29/2024 3:37 PM EDT Please advise the patient that his INR (no units) Date Value 06/29/2024 1.2 is very too low/subtherapeutic. INR has not been checked in 3 months. Has someone else been monitoring this? Is he taking coumadin? documented in this encounterKing'S [facility] [place]05-23-2025 Telephone encounter Note * Telephone Encounter - Gloria Florian RN - 06/29/2024 3:43 PM EDT Called patient's healthcare or medical Hui and patient's son, no answer at this time. Left voicemail to call the office back. [facility]05-23-2025 Telephone encounter Note* Telephone Encounter - Georgiana Hogue APRN.CNP - 06/29/2024 3:37 PM EDT Please advise the patient that his INR (no units) Date Value 06/29/2024 1.2 is very too low/subtherapeutic. INR has not been checked in 3 months. Has someone else been monitoring this? Is he taking coumadin? [facility] Work Phone: 1(113) 375-635605-23-2025 NoteHNO ID: [id number] Author: TREY SMITH APRN.CNP Service: ? Author Type: Nurse Practitioner Type: Progress Notes Filed: 06/29/2024 19:32 Note Text: Pulmonary Medicine Patients name: Tylor Campbell PCP: Paddy Zaidi MD CC: follow-up HPI: Tylor Pedersen is a 83 year old male former 30-csrj-nufj smoker quitting in 1992 with PMH significant for obesity, coronary artery disease s/p CABG and stent, previous stroke, GERD, HLD, prostate cancer s/p radiation, HTN, PAF on AC, central sleep apnea not wearing PAP, chronic hypoxemic respiratory failure. Current inhaled therapy Advair and PRN Albuterol. He presents today for follow-up with his collar trimmer. YOLANDA 03/2024 with exertional dyspnea, chest tightness and wheezing. Started on Advair at that time. Oximetry with ambulation at that time did not show need for supplemental O2 with exertion. He and his collar trimmer insist he can't even stand up without [...] appearance. He is not ill-appearing. Comments: Very INUPIAT HENT: Head: Normocephalic. Nose: No rhinorrhea. Mouth/Throat: Mouth: Mucous membranes are moist. Pharynx: No oropharyngeal exudate. Cardiovascular: (more content not included)...[facility] 06-21-2024 NoteHNO ID: [id number] Author: CORRINA FUENTES MA Service: ? Author Type: Manager Fine Type: Progress Notes Filed: 06/21/2024 08:30 Note Text: POPULATION HEALTH NAVIGATION OUTREACH Action/FYI Letter received and sent to be mailed. Navigation Signature: Corrina Fuentes MA June 21, 2024 8:30 [facility]05-14-2025 NoteHNO ID: [id number] Author: ANT DIAS MA Service: ? Author Type: Manager Fine Type: Progress Notes Filed: 06/20/2024 08:24 Note [...] Healthy at Home (H@H) phone number provided [phone]: Yes via letter Reason for Outreach Value [facility] Care Gaps due: Medicare Annual Wellness Visit Patient Contacted: Unable or unnecessary to reach patient: Unable to leave message Letter mailed Navigation Signature: Ant Dias MA June 20, 2024 8:22 [facility]05-13-2025 Telephone encounter Note* Telephone Encounter - Paddy [...] once daily. Authorizing Provider: PADDY ZAIDI MD [facility]05-13-2025 Miscellaneous Notes* Telephone Encounter - Paddy Zaidi [...] PADDY ZAIDI MD * Telephone Encounter - Marjtolu CassandraKELLY - 06/18/2024 1:48 PM EDT Prescription Refill [...] Take 1 tablet by mouth once daily. Cassandra Ann LPN June 18, 2024 1:48 PM documented in this encounterKing'S [facility] [place]05-12-2025 Telephone encounter Note * Telephone Encounter - Cassandra Ann LPN - 06/18/2024 1:48 PM EDT [...] Take 1 tablet by mouth once daily. Cassandra Ann LPN June 18, 2024 1:48 PM [facility]05-12-2025 NoteHNO ID: [id number] Author: ANT DIAS MA Service: ? Author Type: Manager Fine Type: Progress Notes Filed: 06/18/2024 12:47 Note Text: POPULATION HEALTH NAVIGATION OUTREACH Action/FYI Patient is on Value Hub Outreach List and needs appointment to address : DTaP,Tdap,Td Vaccine(1 - Tdap) Shingrix Vaccine(1 of 2) RSV Vaccine(1 - 1-dose 75+ series) Covid-19 Vaccine() Advance Directive Discussion LDL Cholesterol Patient due for: Medicare Annual Wellness Visit MyChart Active: No, offered activation N/A 1st Attempt: Attempted to reach patient, voicemail not set up yet, unable to leave message. No mychart available Healthy at Home (H@H) phone number provided [phone]: No Reason for Outreach Value Hub Care Gaps due: Medicare Annual Wellness Visit Patient Contacted: Unable or unnecessary to reach patient: Unable to leave message Navigation Signature: Ant Dias MA June 18, 2024 12:44 [facility]05-12-2025 History of Present illness Narrative* Ant [...] Healthy at Home (H@H) phone number provided [phone]: No Reason for Outreach Value [facility] Care Gaps due: Medicare Annual Wellness Visit Patient Contacted: Unable or unnecessary to reach patient: Unable to leave message Navigation Signature: Ant Dias MA June 18, 2024 12:44 PM * Matthew Stallworth RN - 06/18/2024 12:28 PM EDT [...] Schedule PCP appointment(s) Navigation Team: AWV Needed Matthew Stallworth RN June 18, 2024 12:28 PM documented in this encounterKing'S [facility] [place]05-12-2025 NoteHNO ID: [id number] Author: MATTHEW STALLWORTH RN Service: ? Author Type: Registered [...] Schedule PCP appointment(s) Navigation Team: AWV Needed Matthew Stallworth RN June 18, 2024 12:28 [facility]05-12-2025 NotePatient Outreach ([facility]MG) TYLOR PEDERSEN ([id number]) 1940 M Date Time Provider Department 06/18/24 [facility] During your visit today, we recorded the following information about you: Matthew Stallworth RN 06/18/2024 12:30 PM Signed Value Based Care Coordination Chart Review Provider Action / FYI: N/A Upon review of patient chart, the patient is excluded from Chronic Disease Management Patient is not a candidate for CDM at this time and placed in the following status: Unable to reach Action taken: Patient routed to Navigation Team Schedule PCP appointment(s) Navigation Team: AWV Needed Matthew Stallworth RN June 18, 2024 12:28 PM Ant Dias MA 06/18/2024 12:47 PM Signed POPULATION HEALTH NAVIGATION OUTREACH Action/FYI Patient is on Value Hub Outreach List and needs appointment to address : DTaP,Tdap,Td Vaccine(1 - Tdap) Shingrix Vaccine(1 of 2) RSV Vaccine(1 - 1-dose 75+ series) Covid-19 Vaccine(3 - season) Advance Directive Discussion LDL Cholesterol Patient due for: Medicare Annual Wellness Visit MyChart Active: No, offered activation N/A 1st Attempt: Attempted to reach patient, voicemail not set up yet, unable to leave message. No mychart available Healthy at Home (H@H) phone number provided [phone]: No Reason for Outreach Value Hub Care [...] RSV Vaccine(1 - 1-dose 75+ series) Covid-19 Vaccine() Advance Directive Discussion LDL Cholesterol Patient due for: Medicare Annual Wellness Visit MyChart Active: No, offered activation N/A 2nd Attempt: Attempted to reach patient, voicemail not set up yet, unable to leave message. No mychart available, sent letter. Healthy at Home (H@H) phone number provided [phone]: Yes via letter Reason for Outreach Value [facility] Care Gaps due: Medicare Annual Wellness [...] Status Change Date Reviewed: 03/27/2024 Reviewed by: Trey Smith APRN.GRANTS ASSISTANT - Fully Assessed Reason for Visit: Population Health Navigation Outreach [3910] Cmt: Value [facility] Prescriptions as of 06/21/2024 - furosemide [...] 09/26/2012 Obstructive sleep apnea (more content not included)...[facility] 04-26-2024 NoteHNO ID: [id number] Author: CASSANDRA FERREIRA MA Service: ? Author Type: Manager Fine Type: Progress Notes Filed: 04/26/2024 14:42 Note [...] to reach patient: Left message Navigation Signature: Cassandra Ferreira MA April 26, 2024 2:37 [facility]03-20-2025 History of Present illness Narrative* Cassandra Ferreira MA - 04/26/2024 2:36 PM EDT [...] to reach patient: Left message Navigation Signature: Cassandra Ferreira MA April 26, 2024 2:37 PM documented in this encounterKing'S [facility] [place]03-20-2025 NotePatient Outreach (NETNAV) TYLOR PEDERSEN ([id number]) 1940 M Date Time Provider Department 04/26/24 CASSANDRA FERREIRA NETPRETTYV During your visit today, we recorded the following information about you: Cassandra Ferreira MA 04/26/2024 2:42 PM Signed POPULATION [...] to reach patient: Left message Navigation Signature: Cassandra Frieda Ferreira MA April 26, 2024 2:37 PM Allergies As of Date: 04/26/2024 Noted Allergy Reaction ASPIRIN 04/19/2018 16 - Unknown OXYCODONE 04/19/2018 14 - Other: See Comments PERCODAN (OXYCODONE-ASPIRIN) 12/17/2004 1 - Mental Status Change Date Reviewed: 03/27/2024 Reviewed by: Trey Smith APRN.GRANTS ASSISTANT - Fully Assessed Reason for Visit: Population [...] Anxiety [F41.9] 12/23/2021 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/19/2017 Cerebrovascular accident (CVA) (HCC) [I63.9] 12/23/2021 [...] BMI 30-34.9 [E66.811] 02/14/2024 Encounter Status:Closed by CASSANDRA FERREIRA on 04/26/24[facility] 04-09-2024 Miscellaneous Notes* Telephone Encounter - Cassandra Ann LPN - 04/09/2024 11:10 AM EST [...] 1 TABLET BY MOUTH ONCE DAILY DIRECTED Cassandra Ann LPN April 09, 2024 11:10 AM documented in this encounterKing'S [facility]03-[facility]-2025 Telephone encounter Note * Telephone Encounter - Cassandra Ann LPN - 04/09/2024 11:10 AM EST [...] 1 TABLET BY MOUTH ONCE DAILY DIRECTED Cassandra Ann LPN April 09, 2024 11:10 AM [facility]02-18-2025 History of Present illness Narrative* Pedro Samuels RT(R) - 03/27/2024 3:40 PM EST Radiology Service Progress Note PATIENT NAME: Tylor Pedersen DATE OF SERVICE: March 27, 2024 [...] PATIENT PRESENTS WITH AN IMPLANTABLE OR ATTACHED SHOT MAN: No RADIOLOGY DEPARTMENT: CT; Exam(s) Completed: Chest PERIPHERAL IV DATA: Not applicable SIGNED BY: RT Alfonso(Lillie) March 27, 2024 3:57 PM documented in this encounterKing'S [facility]aughters [facility]02-18-2025 NoteHNO ID: [id number] Author: PEDRO SAMUELS RT(R) Service: ? Author Type: Military Pay Clerk Type: Progress Notes Filed: 03/27/2024 15:57 Note Text: Radiology Service Progress Note PATIENT NAME: Tylor Pedersen DATE OF SERVICE: March 27, 2024 [...] PATIENT PRESENTS WITH AN IMPLANTABLE OR ATTACHED SHOT MAN: No RADIOLOGY DEPARTMENT: CT; Exam(s) Completed: Chest PERIPHERAL IV DATA: Not applicable SIGNED BY: RT Alfonso(R) March 27, 2024 3:57 [facility]02-18-2025 Instructions* Patient Instructions* Trey Smith APRN.CNP - 03/27/2024 2:58 PM EST [...] I get the results. documented in this encounterKing'S [facility]aughters [facility] [place]02-18-2025 History of Present illness Narrative* Trey Smith APRN.CNP - 03/27/2024 2:00 PM EST Images from the original note were not included. Pulmonary Medicine Patients name: Tylor Campbell PCP: Paddy Zaidi MD CC: follow-up HPI: Tylor Pedersen is a 83 year old male former 14-jkjw-ooul smoker quitting in 1992 with PMH significant [...] Had also just previously been hospitalized at [facility] for Pneumonia. At his last visit, he [...] chest tightness. Has frequent wheezing that promptshis collar trimmer to remind him to use Albuterol. No [...] 160-9-4.8 mcg/actuation HFA aerosol inhaler Generic drug: zasaphgrhm-vwfijmra-cabnauvdda Inhale 2 Puffs as instructed two times [...] Stage 3 severe COPD by GOLD classification ([facility]) - ICD9: 496, ICD10: J44.9 (primary diagnosis) [...] reviewed and edited and updated as necessary. Trey Smith APRN.SHANNAN I spent a total of 38 minutes on the date of the service which included preparing to see the patient, dsgx-rp-nkmq patient care, completing clinical documentation, performing a medically appropriate examination, counseling and educating the patient/family/caregiver, and ordering medications, tests,or procedures. documented in this encounterKing'S [facility]aughters [facility] [place]02-18-2025 NoteHNO ID: [id number] Author: TREY SMITH APRN.CNP Service: ? Author Type: Nurse Practitioner Type: Progress Notes Filed: 03/27/2024 17:53 Note Text: Pulmonary Medicine Patients name: Tylor Campbell PCP: Paddy Zaidi MD CC: follow-up HPI: Tylor Pedersen is a 83 year old male former 02-syxi-gmvn smoker quitting in 1992 with PMH significant [...] Had also just previously been hospitalized at [facility] for Pneumonia. At his last visit, he [...] tightness. Has frequent wheezing that prompts his collar trimmer to remind him to use Albuterol. No [...] Allergies: Aspirin Unknown Oxycodone Other: See Comments Emily [Oxycodone* Mental Status Change Medication List Accurate [...] 160-9-4.8 mcg/actuation HFA aerosol inhaler Generic drug: wxjlzgopir-rrxnoczh-budrdczuel Inhale 2 Puffs as instructed two times [...] appearance. HENT: Head: Normoc (more content not included)...[facility]02-18-2025 NoteHNO ID: [id number] Author: MAYRA SIMS RPFT Service: ? Author Type: Respiratory [...] Wheeled Walker NAME: MARY Guillaume PATIENT NAME: Tylor Pedersen DATE: March 27, 2024 TIME: 1:49 PM Comment: Patient does not have a faster paceProtestant Deaconess Hospital02-18-2025 Procedure note* Mayra SimsMARY - 03/27/2024 1:49 PM ESTAssociated Order(s): OXIMETRY [...] Wheeled Walker NAME: MARY Guillaume PATIENT NAME: Tylor Pedersen DATE: March 27, 2024 TIME: 1:49 PM Comment: Patient does not have a faster pace [facility]02-18-2025 Procedure note* Mayra Sims RPFT - 03/27/2024 1:49 PM ESTAssociated [...] Supply Carrier Forehead 30 Wheeled Walker NAME: Mayra SimsLASHAWNALEKSANDER PATIENT NAME: Tylor Pedersen DATE: March 27, 2024 TIME: 1:49 PM Comment: Patient does not have a faster pace documented in this encounterKing'S Daughters [facility] [place]02-18-2025 NoteHNO ID: [id number] Author: MAYRA SIMS RPFT Service: ? Author Type: Respiratory Therapist Type: Progress Notes Filed: 03/27/2024 13:50 Note Text: PULM FUNCTION: Provider: Burton Huynh MD Assisting Tech: Mayra Sims RPFT [facility]xim[facility] History of Present illness Narrative* Mayra Sims RPFT - 03/27/2024 1:47 PM EST PULM FUNCTION: Provider: Burton Huynh MD Assisting Tech: Mayra Sims RPFT Oximetry - Ambulation: 1 documented in this encounterKing'S Daughters [facility] [place]02-12-2025 Telephone encounter Note * Telephone Encounter - Shena Muñoz - 03/21/2024 1:06 PM EST I spoke with Adrian, and he is now scheduled to see Dr. Zaidi on Tuesday. There were many available times remaining for this week, but Adrian and his caregiver declined all options. They said he does notfeel it is an emergency. I explained primary care team really wanted him to be seen this week, but they declined. Shena Muñoz [facility]02-12-2025 Miscellaneous Notes* Telephone Encounter - Shena Muñoz - 03/21/2024 1:06 PM EST I spoke with Adrian, and he is now scheduled to see Dr. Zaidi on Tuesday. There were many available times remaining for this week, but Adrian and his caregiver declined all options. They said he does notfeel it is an emergency. I explained primary care team really wanted him to be seen this week, but they declined. Shena Muñoz * Telephone Encounter - Hever Martínez APRN.CNP - 03/21/2024 12:52 PM EST Please offer appointment with Dr. Zaidi this week Hever Martínez APRN.CNP * Telephone Encounter - Isabell Sood RN [...] the ED if sx warrant medical attention. BRENNAN documented in this encounterKing[facility] [place] Telephone encounter Note * Telephone Encounter - Hever Martínez APRN.CNP - 03/21/2024 12:52 PM EST Please offer appointment with Dr. Zaidi this week Hever Martínez APRN.CNP [facility] [place]02-12-2025 Telephone encounter Note* Telephone Encounter - Isabell Sood RN - 03/21/2024 12:24 PM EST Hui states patient was supposed to have a refill of the Lasix after an OV on 02/14/2024, it was not prescribed. Has been out since that visit. Please address. Rx pended. [facility] [place]02-12-2025 Miscellaneous Notes* Telephone Encounter - Isabell Sood RN - 03/21/2024 12:24 PM EST Hui states patient was supposed to have a refill of the Lasix after an OV on 02/14/2024, it was not prescribed. Has been out since that visit. Please address. Rx pended. documented in this encounterKing'S [facility] [place] Telephone encounter Note * Telephone Encounter - [...] ED if sx warrant medical attention. FYI [facility]02-12-2025 Telephone encounter Note* Telephone Encounter - Isabell Sood RN - 03/21/2024 11:56 AM EST Spoke to Hui and patient at length. Patient will take 7.5 mg of Coumadin tomorrow then resume taking 2.5 mg like he has been. Will have BW done around 03/29. Tracker done [facility]02-12-2025 Miscellaneous Notes* Telephone Encounter - Isabell Sood RN - 03/21/2024 11:56 AM EST Spoke to Hui and patient at length. Patient will take 7.5 mg of Coumadin tomorrow then resume taking 2.5 mg like he has been. Will have BW done around 03/29. Tracker done * Telephone Encounter - Natalia Massey RN - 03/19/2024 10:52 AM EST Called [phone]. No answer. Mailbox still full. * Telephone Encounter - Violetta Humphrey RN - 03/17/2024 9:30 AM EST Called Hui at [phone] Vm still full-could not leave message. Called [...] a day. Call Hui back with response [phone]-did advise her to clean out VM so [...] advise. Paddy Zaidi MD documented [place] encounterPatty [place] [address]-11-2025 NoteHNO ID: [id number] Author: ELENITA DEY MA Service: ? Author Type: Manager Fine Type: Progress Notes Filed: 03/20/2024 16:32 Note [...] Elenita Dey MA March 20, 2024 4:29 [facility] History of Present illness Narrative* Elenita Dey [...] 20, 2024 4:29 PM documented in this encounterKing'S [facility] [place]-2025 NotePatient Outreach (LANRENAV) TYLOR PEDERSEN ([id number]) 1940 M Date Time Provider Department 03/20/24 [...] Status Change Date Reviewed: 03/05/2024 Reviewed by: Cassy Jones LPN - Fully Assessed Reason for Visit: Population Health Navigation Outreach [3910] Cmt: [employer] High Risk Attempt #1 Prescriptions as of 03/20/2024 - warfarin (COUMADIN) 2.5 mg tablet TAKE 1 TABLET BY MOUTH ONCE DAILY DIRECTED - iabgemdflr-oxofmtlg-aobhwmmtsl (BREZTRI AEROSPHERE) 160-9-4.8 mcg/actuation HFA aerosol inhaler [...] Anxiety [F41.9] 12/23/2021 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/19/2017 Cerebrovascular accident (CVA) (HCC) [I63.9] 12/23/2021 [...] 02/14/2024 Encounter Status:Closed by ELENITA DEY on 03/20/24[facility] 03-19-2024 Telephone encounter Note* Telephone Encounter - Natalia Massey RN - 03/19/2024 10:52 AM EST Called [phone]. No answer. Mailbox still full. [facility]02-08-2025 Telephone encounter Note* Telephone Encounter - Violetta Humphrey RN - 03/17/2024 9:30 AM EST Called Hui at [phone] Vm still full-could not leave message. Called all other listed numbers- no answer. VM's are all full-could not leave message. Not active on MyChart. Will need to try again later. Violetta Humphrey RN [facility]02-07-2025 Telephone encounter Note* Telephone Encounter - Paddy aZidi MD - 03/16/2024 5:19 PM EST Just take 1 time dose of 5 mg. One extra pill just one dose. Check INR in 2 weeks Paddy Zaidi MD [facility]02-07-2025 Telephone encounter Note* Telephone Encounter - Violetta Humphrey RN - 03/16/2024 12:59 PM EST Spoke to Hui- states he has been taking warfarin every day, 2.5 mg. Never misses a day. Call Hui back with response [phone]-did advise her to clean out VM so we can leave messages. Violetta Humphrey RN [facility]02-04-2025 Telephone encounter Note* Telephone Encounter - Cassandra Ann LPN - 03/13/2024 8:22 AM EST [...] 1 TABLET BY MOUTH ONCE DAILY DIRECTED Cassandra Ann LPN March 13, 2024 8:22 AM [facility]02-04-2025 Miscellaneous Notes* Telephone Encounter - Cassandra Ann LPN - 03/13/2024 8:22 AM EST [...] 1 TABLET BY MOUTH ONCE DAILY DIRECTED Cassandra Ann LPN March 13, 2024 8:22 AM documented in this encounterKing'S [facility] [place]02-[facility]-20[facility] Telephone encounter Note * Telephone Encounter - Karo Wilkinson RN - 03/12/2024 2:40 PM EST Called pt, no answer. LVM to call office back [facility] [place]01-29-2025 Telephone encounter Note* Telephone Encounter - Violetta Humphrey RN - 03/07/2024 9:48 AM EST Called all numbers listed in chart- no answer. No VM available to leave message. Not on MYChart. Will need to try again later. Violetta Humphrey RN [facility] [place]01-28-2025 Telephone encounter Note* Telephone Encounter - Paddy Zaidi MD - 03/06/2024 2:03 PM EST INR is a little low , have you been taking warfarin 2.5 mg daily every day? May need to increase dose a bit. Please review with patient and advise. Paddy Zaidi MD [facility]01-28-2025 Telephone encounter Note* Telephone Encounter - Cassy Jones LPN - 03/06/2024 9:57 AM EST Breztri [...] if SW can inquire about medication assistance. Cassy Jones LPN [facility] [place]01-28-2025 Miscellaneous Notes* Telephone Encounter - Cassy Jones LPN - 03/06/2024 9:57 AM EST Breztri [...] if SW can inquire about medication assistance. Cassy Jones LPN * Telephone Encounter - Judy Wong MA - 03/06/2024 9:27 AM EST Analilia [facility] and asking if there is an alternative to the Breztri inhaler? Patient has a $100.00 copay and is unable to afford it. documented in this encounterKing'S [facility] [place]01-28-2025 Telephone encounter Note * Telephone Encounter - Judy Wong MA - 03/06/2024 9:27 AM EST Analilia - Pharmacist from [facility] calling and asking if there is an alternative to the Breztri inhaler? Patient has a $100.00 copay and is unable to afford it. [facility] [place]01-27-2025 History of Present illness Narrative* Burton Huynh MD - 03/05/2024 3:15 PM EST Images from the original note were not included. . Respiratory [place] Note Patient name: Tylor Pedersen PCP: Paddy Zaidi MD Referring Physician: Hever Martínez CNP Consultation requested by Hever Martínez for an opinion regarding COPD. My final recommendations willbe communicated back to the requesting physician by way of shared Medical record or letter to requesting physician via US mail. CC: COPD HPI: Tylor Pedersen 83 year old male former 77-dhyr-hgtf smoker quitting in 1992 with PMH significant for obesity, coronary artery disease s/p CABG and stent, previous stroke, GERD, HLD, prostate cancer s/p radiation, HTN, PAF on AC, central sleep apnea not wearing PAP, chronic hypoxemic respiratory failure being sent for evaluation of COPD. Recently hospitalized at [facility] for[facility]neumonia. CT of the chest shows left [...] recurrent bronchitis. DME: [employer] DATA: PFT: PFT [facility] 10/23/2018; FVC 2.41 L 57% FEV1 1.62 L 54% FEV1/FVC 67% No improvement post-bronchodilator TLC 5.01 L 76% RV 2.60 L 94% RV/TLC 52% DLCO 15.2 73% Imaging / Diagnostic Studies: [facility] MR#: [id number] Acct: [id number] Name: TYLOR PEDERSEN Rep #: [id number] : 1940 M 83 From: Shayne Holt [...] the tongue every 5 minutes as needed. kgsxovshqj-wuolpyjn-hvuvnodjbx (BREZTRI AEROSPHERE) 160-9-4.8 mcg/actuation HFA aerosol inhaler [...] use: No Drug use: No Worked at [employer] for 32 years Pets: None FAMILY HISTORY Problem Relation Age of Onset Heart Father Prostate Cancer Father Alzheimer's Disease Mother PAST SURGICAL HISTORY Procedure Laterality Date ARTHRP ACETBLR/PROX FEM PROSTC AGRFT/ALGRFT CABG (2) VEIN GRAFTS & ARTERIAL GRAFT(S PAST SURGICAL HISTORY OF 07/24/2018 removal of hardware, left thr radiation for prostate cancer TREAT HIP FRACTURE(S) Left 11/[address] [facility] PMH, Social history, family history and surgical [...] will need supplemental oxygen -Ambulation oximetry testing Burton Huynh MD Respiratory Al[place] documented in this encounterKing'S [facility] [place]01-27-2025 NoteHNO ID: [id number] Author: BURTON HUYNH MD Service: ? Author Type: Physician Type: Progress Notes Filed: 03/05/2024 16:00 Note Text: . Respiratory Alma Note Patient name: Tylor Pedersen PCP: Paddy Zaidi MD Referring Physician: Hever Martínez CNP Consultation requested by Hever Martínez for an opinion regarding COPD. My final recommendations will be communicated back to the requesting physician by way of shared Medical record or letter to requesting physician via US mail. CC: COPD HPI: Tylor Pedersen 83 year old male former 23-otjg-sjdz smoker quitting in 1992 with PMH significant for obesity, coronary artery disease s/p CABG and stent, previous stroke, GERD, HLD, prostate cancer s/p radiation, HTN, PAF on AC, central sleep apnea not wearing PAP, chronic hypoxemic respiratory failure being sent for evaluation of COPD. Recently hospitalized at [facility] for pneumonia. CT of the chest shows [...] recurrent bronchitis. DME: [employer] DATA: PFT: PFT [facility] 10/23/2018; FVC 2.41 L 57% FEV1 1.62 L 54% FEV1/FVC 67% No improvement post-bronchodilator TLC 5.01 L 76% RV 2.60 L 94% RV/TLC 52% DLCO 15.2 73% Imaging / Diagnostic Studies: [facility] MR#: [id number] Acct: [id number] Name: TYLOR PEDERSEN Rep #: [id number] : 1940 83 From: Shayne Holt MD [...] the tongue every 5 minutes as needed. rgpextpzot-dwvaatcf-caxkfzslgl (BREZTRI AEROSPHERE) 160-9-4.8 mcg/actuation HFA aerosol inhaler [...] by mouth every morning. (more content not included)...[facility]01-27-2025 NoteHNO ID: [id number] Author: MAYRA SIMS RPFT Service: ? Author Type: Respiratory Therapist Type: Progress Notes Filed: 03/05/2024 15:09 Note Text: PULM FUNCTION: Provider: Burton Huynh MD Assisting Tech: Mayra Sims RPFT Spirometry w/BD: 1 DLCO: [facility] History of Present illness Narrative * Mayra Sims RPFT - 03/05/2024 3:04 PM EST PULM FUNCTION: Provider: Burton Huynh MD Assisting Tech: Mayra Sims RPFT Spirometry w/BD: 1 DLCO: 1 documented in this encounterKing'S [facility] [place]01-[facility]-20[facility] Telephone encounter Note * Telephone Encounter - Cassandra Ann LPN - 02/16/2024 10:21 AM EST Patients son aware that medication was sent to [facility] in [place]. Son stated he understood that blood work needed drawn in 1 week in [place]. [facility]01-09-2025 Miscellaneous Notes* Telephone Encounter - Cassandra Ann LPN - 02/16/2024 10:21 AM EST Patients son aware that medication was sent to [facility] in [place]. Son stated he understood that blood work needed drawn in 1 week in [place]. * Telephone Encounter - Paddy Zaidi MD [...] for 1x per week, standing order for [place] lab. Once he's on a steady dose can cut this back to 1x per sergio . Paddy Zaidi MD * Telephone Encounter - Ozzy RigginsCorrina Trudi - 02/15/2024 3:30 PM EST Hui, Caregiver, is calling Paddy Zaidi MD today with concern regarding Medication Problem. Patient Elizulema is $300 with the copay and he cannot afford this. They are asking for Warfarin or another medication. Patient has been identified by name and birthdate. Duration of symptoms: N/A Hui Call patient at: [phone] (home) [phone] (cell) Was an appointment scheduled: No Closing statement: Corrina Riggins documented in this encounterKing'S [facility] [place]01-[facility]-2025 Telephone encounter Note * Telephone Encounter - [...] 1x per sergio . Paddy Zaidi MD [facility] [place]01-08-2025 Telephone encounter Note* Telephone Encounter - Corrina Blood - 02/15/2024 3:30 PM EST Hui, Caregiver, is calling Paddy Zaidi MD today with concern regarding Medication Problem. Patient Jose is $300 with the copay and he cannot afford this. They are asking for Warfarin or another medication. Patient has been identified by name and birthdate. Duration of symptoms: N/A Hui Call patient at: [phone] (home) [phone] (cell) Was an appointment scheduled: No Closing statement: Corrina Riggins [facility] Work Phone: [phone] Telephone encounter Note* Telephone Encounter - Paddy Zaidi MD - 02/14/2024 5:18 PM EST The following approved medication requests have been transmitted electronically. Requested Prescriptions Signed Prescriptions Disp Refills ELIQUIS 5 mg tab(s) 180 tablet 3 Sig: Take 1 tablet by mouth two times a day. Authorizing Provider: PADDY ZAIDI MD [facility]01-07-2025 Miscellaneous Notes* Telephone Encounter - Paddy Zaidi MD - 02/14/2024 5:18 PM EST The following approved medication requests have been transmitted electronically. Requested Prescriptions Signed Prescriptions Disp Refills ELIQUIS 5 mg tab(s) 180 tablet 3 Sig: Take 1 tablet by mouth two times a day. Authorizing Provider: PADDY ZAIDI MD * Telephone Encounter - Varsha Byers - 02/14/2024 4:46 PM EST [facility] the Eliquis and stated [...] Thank you. Varsha Byers. documented in this encounterKing'S [facility] [place]01-[facility]-2025 Telephone encounter Note * Telephone Encounter - Varsha Byers - 02/14/2024 4:46 PM EST [facility] calling regarding the Eliquis and stated [...] found Please advise. Thank you. Varsha Byers. [facility]01-07-2025 Telephone encounter Note* Telephone Encounter - Shena Muñoz - 02/14/2024 3:59 PM EST 1st attempt to reach for scheduling, left voicemail. Adrian was seen at [facility] today, and Hever referred him to see Pulmonology. He was unable to stay for scheduling but he and his caregiver said they would like to do all the appointmentsat [place]. Although there are many available times to complete the respiratory tests required for new pulmonology appointments on the same day, there are not any openings where both the respiratory tests and the pulmonology provider appointment are available the same day soon. Shena Muñoz [facility]01-07-2025 Miscellaneous Notes* Telephone Encounter - Shena Muñoz - 02/14/2024 3:59 PM EST 1st attempt to reach for scheduling, left voicemail. Adrian was seen at [facility] today, and Hever referred him to see Pulmonology. He was unable to stay for scheduling but he and his caregiver said they would like to do all the appointmentsat [place]. Although there are many available times to complete the respiratory tests required for new pulmonology appointments on the same day, there are not any openings where both the respiratory tests and the pulmonology provider appointment are available the same day soon. Shena Muñoz documented in this encounterKing'S [facility] [place]01-[facility]-2025 NoteHNO ID: [id number] Author: HEVER MARTÍNEZ APRN.GRANTS ASSISTANT Service: ? Author Type: Nurse Practitioner Type: Progress Notes Filed: 02/14/2024 16:39 Note Text: This note was created using [employer] ([employer])riter. Subjective Tylor Pedersen is a 83 year old male. Patient here with delivery consultant. Treated for RLL pneumonia at the ER, [...] of AFIB and CAD, never seen a orthotic assistant. Uses walker for ambulation, sleeps in the [...] HIP FRACTURE(S) Left 11/[address] [facility] ALLERGIES Aspirin, Oxycodone, and Percodan [Oxycodone-Aspirin] MEDICATIONS [...] type (HCC) Recommend to establish care with coloring room worker, continue oxygen. - CONSULT TO PULMONARY MEDICINE 3. Adjustment disorder with mixed anxiety and depressed mood Increase to 40 mg daily. - PARoxetine (PAXIL) 40 mg tablet; Take 1 tablet by mouth once daily. Dispense: 90 tablet; Refill: 1 4. Paroxysmal atrial fibrillation (HCC) Recommend to repeat labs in 1-2 we (more content not included)...[facility]01-07-2025 History of Present illness Narrative* Hever Martínez, NORA.GRANTS ASSISTANT - 02/14/2024 2:16 PM EST This note was created using [employer]. Subjective Tylor Pedersen is a 83 year old male. Patient here with delivery consultant. Treated for RLL pneumonia at the ER, [...] of AFIB and CAD, never seen a orthotic assistant. Uses walker for ambulation, sleeps in the [...] HIP FRACTURE(S) Left 11/2017 hip screw placed [facility] ALLERGIES Aspirin, Oxycodone, and Percodan [Oxycodone-Aspirin] MEDICATIONS [...] type (HCC) Recommend to establish care with coloring room worker, continue oxygen. - CONSULT TO PULMONARY MEDICINE 3. Adjustment disorder with mixed anxiety and depressed mood Increase to 40 mg daily. - PARoxetine (PAXIL) 40 mg tablet; Take 1 tablet by mouth once daily. Dispense: 90 tablet; Refill: 1 4. Paroxysmal atrial fibrillation ([facility]) Recommend to repeat labs in 1-2 weeks after re-starting Eliquis and Lasix. - CONSULT TO CARDIOLOGY; Future - COMPLETE BLOOD COUNT; Future - BASIC METABOLIC PANEL; Future 5. Encounter for immunization - INFLUENZA VACCINE, PRSV FREE, AGE 65+ YR, HIGH DOSE, TRIVALENT (FLUZONE HIGH-DOSE) Hever Martínez APRN.GRANTS ASSISTANT documented in this encounterKing'S [facility] [place]01-[facility] Telephone encounter Note * Telephone Encounter - Ge Will LPN - 02/13/2024 11:28 AM EST Received visit summary for SOB from [facility] ed. Placed in provider's inbox for review. Route to MA scanning [facility]01-06-2025 Miscellaneous Notes* Telephone Encounter - Ge Will LPN - 02/13/2024 11:28 AM EST Received visit summary for SOB from [facility] ed. Placed in provider's inbox for review. Route to MA scanning documented in this encounterKing'S [facility] [place]11-25-2024 Telephone encounter Note * Telephone Encounter - Paddy Zaidi MD - 01/02/2024 11:15 AM EST The following approved medication requests have been transmitted electronically. Requested Prescriptions Signed Prescriptions Disp Refills PARoxetine (PAXIL) 20 mg tablet 30 tablet 5 Sig: Take 1 tablet by mouth once daily. Authorizing Provider: PADDY ZAIDI MD [facility] [place]11-25-2024 Miscellaneous Notes* Telephone Encounter - Paddy Zaidi [...] 30, 2023 10:38 AM documented in this encounterKing'S [facility] [place]11-22-2024 Telephone encounter Note * Telephone Encounter - [...] Chayito Thorne December 30, 2023 10:38 AM [facility]11-13-2024 Telephone encounter Note* Telephone Encounter - Ge Will LPN - 12/21/2023 3:28 PM EST Received annual oxygen rx from [facility]. Placed in provider's inbox for review. Route to MA fax [facility]11-13-2024 Miscellaneous Notes* Telephone Encounter - Ge Will LPN - 12/21/2023 3:28 PM EST Received annual oxygen rx from [facility]. Placed in provider's inbox for review. Route to [place] fax documented in this encounterKing'S [facility] [place]10-[facility]-2024 Telephone encounter Note * Telephone Encounter - Paddy Zaidi MD - 12/01/2023 2:45 PM EDT The following approved medication requests have been transmitted electronically. Requested Prescriptions Signed Prescriptions Disp Refills PARoxetine (PAXIL) 20 mg tablet 30 tablet 5 Sig: Take 1 tablet by mouth once daily. Authorizing Provider: PADDY ZAIDI MD [facility]10-24-2024 Miscellaneous Notes* Telephone Encounter - Paddy Zaidi [...] Thank you. Varsha Byers. documented in this encounterKing'S [facility]aughters [facility] [place]10-24-2024 Telephone encounter Note * Telephone Encounter - [...] found Please advise. Thank you. Varsha Byers. [facility]10-22-2024 Telephone encounter Note* Telephone Encounter - Cassandra Ann LPN - 11/29/2023 2:13 PM EDT [...] Take 1 tablet by mouth once daily Cassandra Ann LPN November 29, 2023 2:13 PM [facility]10-22-2024 Miscellaneous Notes* Telephone Encounter - Cassandra Ann LPN - 11/29/2023 2:13 PM EDT [...] Take 1 tablet by mouth once daily Cassandra Ann LPN November 29, 2023 2:13 PM documented in this encounterKing'S Daughters [facility] [place]07-26-2024 History of Present illness Narrative* Sarah Robison RN - 09/02/2023 11:40 AM EDT CC [facility] NURSE - CHART REVIEW Provider BRENNAN LUTZ Action 09/22/2022 presented to non [facility] ED following mechanical fall in home. Documentation of encounter indicates no loss of consciousness, not on blood thinning medication. Xray revealed fracture of distalright fibula Pt identified by name and . Reason for Review: Payor request Patient Attributed To: QAE Payer: [employer] Chart Review For: Utilization: ED Total Patient High CostTotal Patient High Cost {HIGH COST:320059) Quality measure review Payor request for assistance Action Taken: No action needed Sarah Robison RN September 02, 2023 11:40 AM documented in this encounterKing'S [facility]aughters [facility] [place]07-[facility] History of Present illness Narrative* Corrina Collazo - 08/25/2023 3:58 PM EDT [facility] POPULATION HEALTH NAVIGATION OUTREACH Action/FYI Patient needs scheduled for [facility]. [facility] 03-15-2023 missed Patient Identified by Name and : Yes, via phone Reason for Outreach Care Gap or Scheduling Wellness Visits Care Gap Reviewed:: Annual Wellness visit [facility] Outreach Outcome/Action Unable to reach patient: Left message Population Health Navigation Workflow Chart Review Payer: [employer] Navigation Signature: Corrina Collazo August 25, 2023 3:58 PM documented in this encounterKing'S [facility] [place]06-[facility]-2024 History of Present illness Narrative* Elenita Dey [...] 03, 2023 1:42 PM documented in this encounterKing'S Daughters [facility] [place]06-03-2024 Telephone encounter Note * Telephone Encounter - Isabell Kearns - 07/11/2023 11:26 AM EDT Adrian is calling Paddy Zaidi MD today with concern regarding Medication Request Disp Refills Start End potassium chloride (K-TAB) 10 mEq tablet 180 tablet 3 05/21/2022 08/19/2022 Sig: Take 2 tablets by mouth every morning. Sent to pharmacy as: potassium chloride (K-TAB) 10 mEq tablet Class: Normal [facility] [place]. No need to call patient if sent to pharmacy. Thank you. Patient has been identified by name and birthdate. Duration of symptoms: N/A Person calling: self Call patient at: on cell [phone] (home) [phone] (cell) Was an appointment scheduled: No Closing statement: Results or non-symptom based questions: Thank you for calling [facility], your call will be returned within the next business day. Isabell Riggins [facility] [place]06-03-2024 Miscellaneous Notes* Telephone Encounter - Isabell Kearns - 07/11/2023 11:26 AM EDT Adrian is calling Paddy Zaidi MD today with concern regarding Medication Request Disp Refills Start End potassium chloride (K-TAB) 10 mEq tablet 180 tablet 3 05/21/2022 08/19/2022 Sig: Take 2 tablets by mouth every morning. Sent to pharmacy as: potassium chloride (K-TAB) 10 mEq tablet Class: Normal [facility] [place]. No need to call patient if sent to pharmacy. Thank you. Patient has been identified by name and birthdate. Duration of symptoms: N/A Person calling: self Call patient at: on cell [phone] (home) [phone] (cell) Was an appointment scheduled: No Closing statement: Results or non-symptom based questions: Thank you for calling [facility], your call will be returned within the next business day. Isabell Riggins documented in this encounterKing'S [facility] [place]06-[facility]-20[facility] Telephone encounter Note * Telephone Encounter - [...] found Please advise. Thank you. Isabell Riggins. [facility]06-03-2024 Miscellaneous Notes* Telephone Encounter - Isabell Kearns [...] Thank you. Isabell Riggins. documented in this encounterKing'S [facility] [place]05-[facility]-2024 Telephone encounter Note * Telephone Encounter - Ge Will LPN - 06/13/2023 10:34 AM EDT Called and notified pt. Pt indicated understanding. [facility]05-06-2024 Miscellaneous Notes* Telephone Encounter - Ge Will [...] normal. Paddy Zaidi MD documented in this encounterKing'S [facility]aughters [facility] [place]05-[facility]-2024 Telephone encounter Note * Telephone Encounter - [...] Blood count is normal. Paddy Zaidi MD [facility]04-30-2024 History of Present illness Narrative* Paddy Zaidi MD - 06/07/2023 4:34 PM EDT CHIEF COMPLAINT Patient presents with: Follow Up HISTORY OF PRESENT ILLNESS Tylor Pedersen is a 82 year old male [...] dose 60+ series) Due for Covid-19 Vaccine (- 2022- season) Due for Advance Directive Discussion Labs [...] 15, 2023 9:45 AM documented in this encounterKing'S [facility] [place]04-26-2024 Telephone encounter Note * Telephone Encounter - [...] limit his ability to leave home. Called [facility] at [phone]. Patient currently has the full size home [...] would just need an order faxed over. [facility]04-26-2024 Miscellaneous Notes* Telephone Encounter - Natalia Massey [...] limit his ability to leave home. Called [facility] at [phone]. Patient currently has the full size home [...] order faxed over. * Telephone Encounter - Cassandra Ann LPN - 05/30/2023 4:08 PM EDT [...] PADDY ZAIDI MD * Telephone Encounter - Cassandra Ann LPN - 05/27/2023 2:49 PM EDT Pharmacy verified in [facility] Patient has been identified by name and [...] Readings: Date: BP: 06/02/2022 134/68 Please advise. Cassandra Ann LPN * Telephone Encounter - Varsha Byers - 05/27/2023 [...] Patient aware RX will be sent to [facility] pharmacy. No need to notify patient. Varsha Byers documented in this encounterKing'S [facility] [place]04-22-2024 Telephone encounter Note * Telephone Encounter - Cassandra Ann LPN - 05/30/2023 4:08 PM EDT LM for patient to have fasting labs drawn. Patient has medicare wellness appt 06/23/2023 [facility]04-19-2024 Telephone encounter Note* Telephone Encounter - Paddy [...] For neuropathy Authorizing Provider: PADDY ZAIDI MD [facility]04-19-2024 Telephone encounter Note* Telephone Encounter - Cassandra Ann LPN - 05/27/2023 2:49 PM EDT [...] Readings: Date: BP: 06/02/2022 134/68 Please advise. Cassandra Ann LPN [facility]04-19-2024 Telephone encounter Note* Telephone Encounter - Varsha [...] Patient aware RX will be sent to [facility] pharmacy. No need to notify patient. Varsha Byers T [facility]03-08-2024 History of Present illness Narrative* Corrina Barakat MA - 04/15/2023 11:51 AM EST POPULATION HEALTH NAVIGATION OUTREACH [facility] Discuss/Due for: Medicare Wellness, MyChart Activation [...] Medicare Annual Wellness Visit 06/23/[address] [facility] with PADDY ZAIDI - MEDICARE WELLNESS Z00.00, HCC GAP CLOSURE HCC related Navigation Signature: Corrina Barakat MA April 15, 2023 11:52 AM documented in this encounterKing'S [facility]aughters [facility] [place]03-01-2024 Miscellaneous Notes* Telephone Encounter - Paddy Zaidi [...] 04/08/2023 3:09 PM EST Pharmacy verified in Epic Patient has been [...] advise. Gabrielle Rosenthal MA documented in this encounterKing'S [facility]aughters [facility] [place]02-09-2024 Miscellaneous Notes* Telephone Encounter - Ge Will LPN - 03/18/2023 2:25 PM EST Received visit summary, labs, imaging, EKG for SOB from [facility]. Placed in provider's inbox for review. Route to [place] scanning. 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 Call [facility] ([phone]) or report to the closest Emergency Room. Call 911 if necessary. 03/15/23 1559 <Electronically signed by Parker Metzger MD> Cosigner Signature (if applicable): CC: Dr. Shayne Zaidi MD ~ Signed [facility] Work Phone: 1(852) 573-578311-21-2023 Miscellaneous Notes* Telephone Encounter - Ge Will - 12/28/2022 1:00 PM EST Order signed by PCP and faxed. * Telephone Encounter - Ge Will - 12/28/2022 8:14 AM EST Received annual oxygen prescription order form (renewal date 12/08/21) from [employer]. Placed in provider's inbox for review. Route to [place] fax [phone] documented in this encounterKing'S [facility] [place]08-17-2023 Miscellaneous Notes* Telephone Encounter - Ge Will - 09/23/2022 8:10 AM EDT Received ED visit summary and xrays for lower extremity injusry from [facility] ED. Placed in provider's inbox for review. Route to [place] scanning. documented in this encounterKing'S Daughters [facility] [place]08-14-2023 Hospital Discharge instructions Additional Instructions Closed fracture of ankle. Maintain splint. Usual walker do not put weight on your right lower extremity. Take pain medications as prescribed. Continue to ice and elevate for swelling. Call office of Dr. Spittle for appointment to be seen on Tuesday or Tuesday.[facility] Work Phone: [phone] Miscellaneous Notes* Addendum Note - Cassandra Ann LPN - 08/20/2022 4:55 PM EDTAddended by: CASSANDRA ANN on: 08/20/2022 04:55 PM Modules accepted: Orders * Telephone Encounter - Cassandra Ann LPN - 08/20/2022 4:52 PM EDT Last office note states that Lexapro was stopped by patient due to side effects (ED). Is patient taking medication again. * Telephone Encounter - Jessi Sotelo - 08/20/2022 4:38 PM EDT Patient came in to request a refill of his meds. He needs atorvastatin,eliquis,escitalopram oxalate(out of this completely) ,gabapentin,levothyroxine potassium chloride,spironolactone. Please advise documented in this encounterKing'S [facility]aughters [facility] [place]05-16-2023 Miscellaneous Notes* Telephone Encounter - Cassandra Ann LPN - 06/22/2022 9:08 AM EDT LM for patient to call office. * Telephone Encounter - Hever Santiago APRN.CNP - 06/22/2022 8:49 AM EDT Please call patient and remind him to get his repeat chest xray completed in the next week, order placed. Hever Santiago APRN.CNP documented in this encounterKing'S [facility]aughters [facility] [place]04-26-2023 History of Present illness Narrative* Hever PamelaNORA gómez.GRANTS ASSISTANT - 06/02/2022 1:02 PM EDT This note was created using [employer] ([employer]riter. Subjective Tylor Pedersen is a 81 year old male. [...] HIP FRACTURE(S) Left 11/[address] [facility] ALLERGIES Aspirin, Oxycodone, and Percodan [Oxycodone-Aspirin] MEDICATIONS [...] depression/anxiety. Hever Santiago APRN.CNP documented in this encounterKing'S [facility]aughters [facility] [place]04-19-2023 Miscellaneous Notes* Telephone Encounter - Violetta Humphrey RN - 05/26/2022 1:28 PM EDT Notified patient-he agrees to plan. Scheduled f/u. Patient verbalizes understanding and has no other questions or concerns at this time. Violetta Humphrey RN Reason for Disposition Health Information question, no triage required and triager able to answer question Protocols used: Information Only Call - No [id number] * Telephone Encounter - Magdy Gloria RN [...] doing. Hever Santiago APRN.CNP documented in this encounterKing'S [facility]aughters [facility] [place]04-15-2023 History of Present illness Narrative* Rocky Combs, RT(R) - 05/22/2022 11:00 AM EDT Radiology Service Progress Note PATIENT NAME: Tylor Pedersen DATE OF SERVICE: May 22, 2022 [...] 22, 2022 11:25 AM documented in this encounterKing'S [facility]aughters [facility] [place]04-14-2023 History of Present illness Narrative* Paddy Zaidi MD - 05/21/2022 3:59 PM EDT CHIEF COMPLAINT Patient presents with: Follow Up HISTORY OF PRESENT ILLNESS Tylor Pedersen is a 81 year old male who presents here today for a follow up. I last saw this patient on . Pt is accompanied by his nephew. CAD / Afib Admitted [facility] Cath/ stent placed, no f/u with cardiology. - Pt notes after walking out to car after eating at [employer], , Pt feels like he will pass out. - Pt nephew notes he experiences similar episodes when getting out of the car after going to [facility] - Pt checks his blood pressure at home and records good numbers - Pt nephew notes Pt has trouble walking; he has coughing spells - Pt uses two pillows to lay in bed. Cardiac Cath Intervention on 12-16-2021 Cardiac Cath Intervention [facility] Imaging Services [address] [place] [id number] Cardiac Cath Intervention MR#: [id number] Acct: [id number] Name: TYLOR PEDERSEN Rep #: [id number] : 1940 81 From: Dallas Muller MD PCP: Dr. Shayne Zaidi MD Status:ADM IN Patient Name: TYLOR PEDERSEN Study Date: 12/16/2021 Performing: Tiago Burden MD Ht: 71 inches 180.34 cm : 1940 Wt: 194.29 lbs 88.13 kg Age: 81 Gender: male BSA: 2.08 PROCEDURE(S) PERFORMED IC12-(35106/C9600)KIRK W/WO PTCA, SINGLE CORONARY ARTERY CLINICAL PROFILE [...] XB3.5 100cm Guide Catheter Grey .014 [employer] [place] Straight 190cm Chadwick Sci EMERGE MR 3.00x08 BALLOON [place] Sci Synergy MR KIRK 3.50x08 Medtronic NC EUPHORA RX 3.5x08 BALLOON COPD/ JONATHAN? 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 Refill(s) requested: Requested Prescriptions Pending Prescriptions Disp [...] Order(s) pended. Please advise. Hever Franklin Ma, [employer] DISTRIBUTOR * Telephone Encounter - Shena Muñoz - 05/14/2022 3:24 PM EDT Adrian came by and needs refills of all of his medications sent to [facility] pharmacy in [place]. Can someone assist him with his RX refills? He is totally out of gabapentin but also requesting atorvastatin, spironolactone, escitalopram oxalate, atenolol, levothyroxine, potassium chloride. I have scheduled Adrian for a routine check up since he has not been seen since last fall. 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 Could someone advise Adrian when and if RX refills havebeen sent? Thank you, Shena Muñoz documented in this encounterKing'S [facility] [place]11-21-2022 Miscellaneous Notes* Telephone Encounter - Ge Will - 12/28/2021 2:02 PM EST Received visit summary for sleep apnea and COPD from [facility]. Placed in provider's inbox for review. Route to [place] scanning. documented in this encounterKing'S [facility]aughters [facility] [place]11-18-2022 Miscellaneous Notes* Telephone Encounter - Cassandra Ann LPN - 12/25/2021 11:42 AM EST Received 12/25/2021 from [facility]. Placed in provider's inbox for review. 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 Electronically Signed: Yousif Arshad. December 23, 2021 8:08 AM Provider Attestation: IPaddy MD, personally performed the services described in this documentation. All medical record entries made by the scribe were at my direction and in my presence. I have reviewed the chart and discharge instructions (if applicable) and agree that the record reflects my personal performance and is accurate and complete. Electronically Signed: Paddy Zaidi MD December 23, 2021 2:07PM documented in this encounterKing'S [facility]aughters [facility] [place]11-16-2022 Miscellaneous Notes* Telephone Encounter - Ge Will - 12/23/2021 9:51 AM EST Received EKG from [facility]. Placed in provider's inbox for review. Route to [place] scanning. documented in this encounterKing'S [facility]aughters [facility] [place]11-14-2022 Miscellaneous Notes* Telephone Encounter - Cassandra Ann LPN - 12/21/2021 11:00 AM EST Received 12/18/2021 from [facility]. Placed in provider's inbox for review. Route to [place] for scanning. documented in this encounterKing'S [facility] [place]11-14-2022 Miscellaneous Notes* Telephone Encounter - Cassandra Ann LPN - 12/21/2021 10:57 AM EST Received 12/21/2021 from [facility]. Placed in provider's inbox for review. Route to [place] for scanning documented in this encounterKing'S [facility]aughters [facility] [place]11-10-2022 Miscellaneous Notes* Telephone Encounter - Ge Will - 12/17/2021 3:17 PM EST Received liver us for elevated lft's from [facility]. Placed in provider's inbox for review. Route to [place] scanning. documented in this encounterKing'S [facility]aughters [facility] [place]11-09-2022 Miscellaneous Notes* Telephone Encounter - Ge Will - 12/16/2021 3:08 PM EST Received cardiac cath intervention/diagnostic procedure note and EKG's 12/14, 12/15, 12/[address] [facility]. Placed in provider's inbox for review. Route to [place] scanning. documented in this encounterKing'S [facility]aughters [facility] [place]11-08-2022 Miscellaneous Notes* Telephone Encounter - Ge Confer - 12/15/2021 8:54 AM EST Received ED summary, labs, imaging for SOB and chest pain from [facility]. Placed in provider's inbox for review. Route to [place] scanning. documented in this encounterKing'S Daughters [facility] [place]10-10-2022 Miscellaneous Notes* Telephone Encounter - Paddy Zaidi [...] DAILY AT BEDTIME FOR NEUROPATHY. Refused By: CASSANDRA ANN Reason for Refusal: Patient has requested refill too soon Paddy Zaidi MD * Telephone Encounter - Cassandra Ann LPN - 11/16/2021 10:28 AM EDT Pharmacy verified in Epic Patient has [...] kg (194 lb) Not applicable Please advise. Cassandra Ann LPN documented in this encounterKing'S Daughters [facility] [place]08-09-2022 Miscellaneous Notes* Telephone Encounter - Jessi Sotelo [...] recheck. Hever Santiago APRN.CNP documented in this encounterKing'S Daughters [facility] [place]08-04-2022 Miscellaneous Notes* Telephone Encounter - Ge Will [...] 06/22/21 Next appointment: n/a Pharmacy verified in [facility]. Refill(s) requested: Pending Prescriptions Disp Refills ATENOLOL [...] Timothy Maradiaga Ma, CMA documented in this encounterKing'S Daughters [facility] [place]05-16-2022 History of Present illness Narrative* Hever Santiago APRN.GRANTS ASSISTANT - 06/22/2021 1:03 PM EDT This note was created using [employer]. Subjective Tylor Pedersen is a 80 year old male. [...] 1 Hever Santiago APRN.CNP documented in this encounterKing'S Daughters [facility] [place]05-04-2022 Miscellaneous Notes* Telephone Encounter - eJssi Sotelo - 06/10/2021 5:20 PM EDT Called patient and got appointment scheduled * Telephone Encounter - Hever Santiago APRN.CNP - 06/10/2021 10:27 AM EDT Patient is due for a 6 month chronic care visit, please schedule with either provider. Hever Santiago APRN.CNP * Telephone Encounter - Corrina Riggins - 06/09/2021 3:55 PM EDT Pharmacy verified in [facility] Patient has been identified by name and [...] advise. Corrina Preciado Pss documented in this encounterKing'S [facility] [place]04-14-2022 Miscellaneous Notes* Telephone Encounter - Paddy Zaidi [...] 12-17-20 Next appointment: na Pharmacy verified in [facility]. Refill(s) requested: Pending Prescriptions Disp Refills ESCITALOPRAM 20 MG TABLET 30 tablet 0 Sig: Take 1 tablet by mouth once daily KARLA: Yes Order(s) pended. Please advise. Haily Avila MA, [facility] encounterC[facility]* Diagnosis Essential hypertension Unspecified essential hypertension Hypokalemia Hypopotassemia documented in this encounter [facility] note* Diagnosis Essential hypertension- Primary Unspecified essential hypertension Pure hypercholesterolemia Acquired hypothyroidism Unspecified hypothyroidism Adjustment disorder with mixed anxiety and depressed mood Peripheral polyneuropathy Unspecified hereditary and idiopathic peripheral neuropathy documented in this encounter [facility] note* Diagnosis Essential hypertension Unspecified essential hypertension Hypokalemia Hypopotassemia documented in this encounter [facility] note* Diagnosis Peripheral polyneuropathy Unspecified hereditary and idiopathic peripheral neuropathy documented in this encounter [facility] note* Diagnosis Onset Date Resolution Status Non-STEMI (non-ST elevated myocardial infarction) acute Paroxysmal atrial fibrillation with RVR acute Pneumococcal pneumonia acute Acute exacerbation of COPD with asthma [facility] Work Phone: Evaluation note* Diagnosis Onset Date Resolution Status Non-STEMI (non-ST elevated myocardial infarction) acute Paroxysmal atrial fibrillation with RVR acute Pneumococcal pneumonia acute Acute exacerbation of COPD with asthma chronic HTN (hypertension) [facility] Work Phone: evaluation note* Diagnosis COPD with exacerbation (HCC)- Primary Obstructive chronic bronchitis with exacerbation Hypertensive urgency Unspecified essential hypertension 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 of siletz tribe heart with angina pectoris ([facility]) S/P angioplasty with stent Other postprocedural status 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) Pneumonia of left upper lobe due to infectious organism Essential hypertension Unspecified essential hypertension Obstructive sleep apnea on CPAP Obstructive sleep apnea (adult) (pediatric) Hospital discharge follow-up Other follow-up examination documented in this encounter [facility]* Diagnosis Onset Date Resolution Status Non-STEMI (non-ST elevated myocardial infarction) acute Paroxysmal atrial fibrillation with RVR acute Acute exacerbation of COPD with asthma chronic HTN (hypertension) chronic 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 [facility] Work Phone: Evaluation note* Diagnosis Medication management Encounter for long-term (current) use of other medications Acquired hypothyroidism Unspecified hypothyroidism documented in this encounter [facility]* Diagnosis Mixed hyperlipidemia Peripheral polyneuropathy Unspecified hereditary and idiopathic peripheral neuropathy Essential hypertension Unspecified essential hypertension Hypothyroidism, unspecified type Hypokalemia Hypopotassemia documented in this encounter [facility]* Diagnosis 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 of siletz tribe heart with angina pectoris (HCC)- Primary Essential hypertension Unspecified essential hypertension Hypokalemia Hypopotassemia Peripheral polyneuropathy Unspecified hereditary and idiopathic peripheral neuropathy Acquired hypothyroidism Unspecified hypothyroidism Anxiety Anxiety state, unspecified Paroxysmal atrial fibrillation (HCC) Atrial fibrillation SOB (shortness of breath) Shortness of breath Mixed hyperlipidemia Hypothyroidism, unspecified type Chronic obstructive pulmonary disease, unspecified COPD type (HCC) documented in this encounter [facility]* Diagnosis Pneumonia of right middle lobe due to infectious organism- Primary documented in this encounter [facility]* Diagnosis Pneumonia of right middle lobe due to infectious organism- Primary ED (erectile dysfunction) of organic origin Impotence of organic origin Adjustment disorder with mixed anxiety and depressed mood [facility] encounter [facility]* Diagnosis Hypothyroidism, unspecified type Mixed hyperlipidemia documented in this encounter [facility] noteNo assessment information availableWAkron Children's [facility] Work Phone: Evaluation note* Diagnosis Hypothyroidism, unspecified type Essential hypertension Unspecified essential hypertension Mixed hyperlipidemia Peripheral polyneuropathy Unspecified hereditary and idiopathic peripheral neuropathy [facility] this encounter [facility]* Diagnosis 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 Hypothyroidism, unspecified type Essential hypertension Unspecified essential hypertension Mixed hyperlipidemia Peripheral polyneuropathy Unspecified hereditary and idiopathic peripheral neuropathy SOB (shortness of breath) Shortness of breath Hypoxemia [facility] Diagnosis Essential hypertension Unspecified essential hypertension Hypothyroidism, unspecified type [facility]* Diagnosis Hypokalemia Hypopotassemia documented [facility]* Diagnosis 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 of s[place] tribe heart with angina pectoris (HCC) Paroxysmal atrial fibrillation (HCC) Atrial fibrillation SOB (shortness of breath) Shortness of breath documented in this encounter [facility]* Diagnosis Pneumonia of right lower lobe due to infectious organism- Primary Chronic obstructive pulmonary disease, unspecified COPD type (HCC) Adjustment disorder with mixed anxiety and depressed mood Paroxysmal atrial fibrillation (HCC) Atrial fibrillation Encounter for immunization Need for other specified prophylactic vaccination against single bacterial disease [facility] Diagnosis Chronic atrial fibrillation (HCC)- Primary Atrial fibrillation detention current use of anticoagulant therapy Long-term (current) use of anticoagulants documented [facility]* Diagnosis Chronic obstructive pulmonary disease, unspecified COPD type (HCC) documented [facility]* Diagnosis Chronic obstructive pulmonary disease, unspecified COPD type (HCC) documented [facility]* Diagnosis Chronic obstructive pulmonary disease, unspecified COPD type (HCC) Chronic obstructive pulmonary disease, unspecified COPD type (HCC) 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)- Primary Pneumonia of left lower lobe due to infectious organism Lung nodules Other nonspecific abnormal finding of lung field Former smoker Personal history of tobacco use, presenting hazards to health Chronic hypoxemic respiratory failure (HCC) Chronic respiratory failure [facility]* Diagnosis Chronic obstructive pulmonary disease, unspecified COPD type ([facility])- Primary documented in this [facility]* Diagnosis Stage 3 severe COPD by GOLD classification ([facility])- Primary Hypoxia Hypoxemia Pneumonia of left lower lobe due to infectious organism Lung nodules Other nonspecific abnormal finding of lung field documented [facility] this [facility]* Diagnosis Pneumonia of left lower lobe due to infectious organism Lung nodules Other nonspecific abnormal finding of lung field documented in this encounter [facility]* Diagnosis Mixed hyperlipidemia Essential hypertension Unspecified essential hypertension documented in this encounter [facility]* Diagnosis Hypothyroidism, unspecified type Peripheral polyneuropathy Unspecified hereditary and idiopathic peripheral neuropathy documented in this [facility]* Diagnosis Oxygen dependent- Primary Dependence on supplemental oxygen Atherosclerotic cardiovascular disease Anxiety attack Panic 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 Leg swelling Swelling of limb Adjustment disorder with mixed anxiety and depressed mood PAD (peripheral artery disease) Peripheral vascular disease, unspecified Acquired hypothyroidism Unspecified hypothyroidism Pure hypercholesterolemia Idiopathic peripheral neuropathy Unspecified hereditary and idiopathic peripheral neuropathy Atherosclerosis of s[place] tribe coronary artery of [place] tribe heart without angina pectoris documented in this encounter [facility]* Diagnosis Adjustment disorder with mixed anxiety and depressed mood Hypokalemia Hypopotassemia documented in this encounter [facility]* Diagnosis Hypokalemia Hypopotassemia documented in this encounter [facility]* Diagnosis Hypothyroidism, unspecified type documented [facility] this [facility]* Diagnosis Acute on chronic diastolic congestive heart failure (HCC)- Primary Acute on chronic diastolic heart failure Adjustment disorder with mixed anxiety and depressed mood Atrial fibrillation with RVR (HCC) Atrial fibrillation Aspiration pneumonia, unspecified aspiration pneumonia type, unspecified laterality, unspecified part of lung (HCC) Anxiety attack Panic 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 Hypokalemia Hypopotassemia overcoiler current use of anticoagulant therapy Long-term (current) use of anticoagulants [facility] Olivia Walters [facility] Note Date/Time September 16, 2024 9: 41pm [facility] Medical Records Department [address] [place] [address] H&P Exam - Hospitalist 09/16/242118 MR#: [id number] Acct: [id number] Name: TYLOR PEDERSEN Rep #:[id number] : 1940 83 From: Olivia Walters MD PCP: Dr. Shayne Zaidi MD Status:ADM MARICARMEN Location: [place] [address] HPI - General General Date of Admission: 09/16/24 Date of Service: 09/16/24 Chief Complaint: Confusion HPI Narrative The patient is an 83 y/o M w/ PMHx: Obesity, HTN, HLD, CAD s/p CABG x 2 and PCI,HFpEF, Hypothyroidism, Chronic neuropathy, CKD stage II per GFR trending, Hx CVA, Anxiety and Depression/Panic attacks, recent discharge 09/12/24 following evaluation and treatment of chronic hypoxic respiratory failure secondary to acute HFrEF exacerbation in addition to aspiration pneumonia discharged on Augmentin as well as PAF with RVR with atenolol increased by cardiology during previous evaluation and continuation of patient Coumadin with INR trending to now re-presents to the [facility] ED on 09/16/2024 with history of reported confusion that started the evening prior with family noting concern for hallucinations with patient upon arrival not understanding why he was brought to the ED but noting he is very anxious and requesting medication. Workup in the ED included T97.7, heart 95, BP 122/72, respiratory rate 14, 97% on 3 L nasal cannula with most recent repeat vitals T98.3, heart rate 100, BP 149/72, respiratory rate 20, 98% on 3 L nasal cannula, CBC with WBC 18, hemoglobin 13.9, platelet 201 with left shift, coags with INR 3.1, BMP with chloride 93,, taxine 35.6, anion gap 9, BUN/creatinine 24/0.81, glucose 112, urinalysis with no obvious evidence of UTI, CT brain with no acute intracranial finding, chest x-ray similar to recent however waiting on final read per radiology. In the ED patient ministered Ativan 1 mg IV x 1 secondary to complaints of significant sensation of anxiety requesting medication. In the ED patient administered MIVFs. [facility] Medical History Atherosclerosis of coronary artery of siletz tribe heart without angina pectoris Prostate CA Stroke [...] PO DAILY@0800 heal th 12/14/21 12/14/21 History potassium chloride 10 mEq 20 meq PO DAILY supplement 1 02/13/21 12/14/21 History tablet,extended release albuterol sulfate 90 mcg/actuation 2 puff inhalation Q 4H PRN PRN 03/15/23 Unknown Rx aerosol inhaler (Ventolin HFA) Wheezing ##1 fluticasone 250 mcg-salmeterol 50 1 inh inhalation Q12 H 09/10/24 Unknown History mcg/dose blistr powdr for inhalation gabapentin 300 mg capsule 300 mg PO BID 09/10/24 Unkno wn History nitroglycerin 0.3 mg sublingual 0.3 mg sublingual Q5M PRN chest 09/10/24 Unknown History tablet pain paroxetine HCl 40 mg tablet 40 mg PO DAILY 09/10/24 Un known History amoxicillin 875 mg-potassium 1 tab PO BIDCM #11 tabs 0 09/12/24 Unknown Rx clavulanate 125 mg tablet atenolol 50 mg tablet 50 mg PO DAILY #30 tabs 0808/01 Unknown Rx furosemide 40 mg tablet (Lasix) 40 mg PO BID #60 tabs 09/12/24 Unknown Rx warfarin 2.5 mg tablet (Jantoven) 5 mg (2 x 2.5 mg) PO 1700 #60 tabs 09/12/24 Unknown Rx Allergy/AdvReac Type Severity Reaction Status Date / Time oxycodone (From Percodan) Allergy Other Verified 09/16/24 18:21 Surgical History History of coronary artery stent placement (12/16/21) Cataract extraction status History of hip replacement History of open heart surgery Social History (Updated 09/16/24 @ 21:[address] Olivia Walters MD) household members: family Smoking Status: Former smoker quit date: 02/08/92 pack-years: 37 Tobacco: How many years used: 20 alcohol intake: never substance use type: does not use ROS Review of Systems ROS Unobtainable: due to encephalopathy Vital Signs Vital Signs Vital Signs: 09/16/24 18:21 09/16/24 18:27 09/16/24 18:31 Temperature 97.7 F L 98.2 F Temperature Source Temporal Oral Pulse Rate 95 100 Respiratory Rate 14 22 H Respiratory Pattern Normal Blood Pressure 122/72 H 133/74 H Blood Pressure Mean 88 93 Pulse Ox 97 95 Oxygen Delivery Method Nasal Cannula Nasal Cannula Oxygen Flow Rate (L/min) 4 2 09/16/24 19:31 09/16/24 20:00 09/16/24 20:50 Temperature 98.3 F 98.7 F 98.7 F Temperature Source Oral Oral Pulse Rate 90 90 90 Respiratory Rate 18 18 18 Respiratory Pattern Blood Pressure 140/87 H 146/70 H 146/70 H Blood Pressure Mean 104 95 95 Pulse Ox 98 98 98 Oxygen Delivery Method Room Air Room Air Oxygen Flow Rate (L/min) 09/16/24 21:00 Temperature 98.3 F Temperature Source Oral Pulse Rate 100 Respiratory Rate 20 H Respiratory Pattern Blood Pressure 149/72 H Blood Pressure Mean 97 Pulse Ox 98 Oxygen Delivery Method Room Air Oxygen Flow Rate (L/min) Weight Weight: 215 lb 6.266 oz Body Mass Index (BMI) 30.0 Physical Exam Narrative Physical Examination: General: Awakens to stimuli but very fatigued and lethargic, recent sedated medication in the ED, not markedly alert as a result, not able to answer orientation questions, laying in the ED bed, airway appropriate. Skin: Normal color, normal turgor, no icterus, no cyanosis except occasional stage ecchymoses, abrasion, bilateral lower extremity venous stasis skin changes. HEENT: AT/NC, EOM unable to be assessed well given recent sedated regimen/lethargy, PERRLA, MMM, no carotid bruits, no marked JVD noted. Lungs: Diminished, greater bases, mildly increased respiratory rate but no distress, no significantly appreciated rales, ronchi or wheezing. Heart: Regular rate, regular; no gallop, rub audible. Abdomen: Soft, obese, NTTP, ND, distant normal BS, no appreciated HSM. Extremities: No cyanosis, no clubbing, mild ankle bilateral not markedly pittingedema, see skin. Neurological: Awakens to stimuli but very fatigued and lethargic, recent sedatedmedication in the ED, not markedly alert as a result, not able to answer orientation questions, laying in the ED bed, airway appropriate, cognitive function not baseline intact, pupils equally reactive to light and accommodation, cranial nerves difficult to assess given recent sedated medication, spontaneously moving extremities, no obvious focal deficits but difficult exam given recent sedation, strength accordingly severely globally decreased Psychiatric: Affect appears flat, lethargic following recent sedated ED medication, no acute evidence of depressive or anxiety feelings but does have underlying history. Results Lab / Micro Data 09/16/24 18:25 09/16/24 18:25 Labs: Laboratory Results - last 24 hr 09/16/24 18:25: WBC 18.0 H, RBC 4.62, Hgb 13.9, Hct 44.0, MCV 95.2 H, MCH 30.1, MCHC 31.6 L, RDW Std Deviation 46.3 H, RDW Coeff of Erica 13.2, Plt Count 201, MPV9.1, Immature Gran % (Auto) 1.800 H, Neut % (Auto) 85.4 H, Lymph % (Auto) 4.6 L,[place] % (Auto) 4.1, Eos % (Auto) 3.7, Baso % (Auto) 0.4, Absolute Neuts (auto) 15.3 H, Absolute Lymphs (auto) 0.83, Nucleated RBC % 0, PT 32.4 H, INR 3.1, Sodium 138, Potassium 4.6, Chloride 93 L, Carbon Dioxide 35.6 H, Anion Gap 9, BUN 24 H, Creatinine 0.81, Estim Creat Clear Calc 80.91, Est GFR (MDRD) Non-Af 87, BUN/Creatinine Ratio 29.2 H, Glucose 112 H, Calcium 9.3 09/16/24 19:38: Urine Color Yellow, Urine Clarity Clear, Urine pH 7.0, Ur Specific Holland 1.010, Urine Protein 30 H, Urine Glucose (UA) Normal, Urine Ketones Negative, Urine Occult Blood 250 H, Urine Nitrite Negative, Urine Bilirubin Negative, Urine Urobilinogen 4 H, Ur Leukocyte Esterase 25 H, Urine RBC 5-10 SEEN, Urine WBC 0-5 SEEN, Ur Squamous Epith Cells 0-5 SEEN, Urine Bacteria 1+, Hyaline Casts 10-25 SEEN, Urine Mucus 0 SEEN Imaging Radiology Impression Brain CT 09/16/24 18:50 IMPRESSION: No acute intracranial finding. Reading Location: [id number] Assessment & Plan Assessment/Plan (1) Altered mental status: (2) Leukocytosis: PLAN: Plan The patient is an 83 y/o M w/ PMHx: Obesity, HTN, HLD, CAD s/p CABG x 2 and PCI,HFpEF, Hypothyroidism, Chronic neuropathy, CKD stage II per GFR trending, Hx CVA, Anxiety and Depression/Panic attacks, recent discharge 09/12/24 following evaluation and treatment of chronic hypoxic respiratory failure secondary to acute HFrEF exacerbation in addition to aspiration pneumonia discharged on Augmentin as well as PAF with RVR with atenolol increased by cardiology during previous evaluation and continuation of patient Coumadin with INR trending to now re-presents to the [facility] ED on 09/16/2024 with history of reported confusion that started the evening prior with family noting concern for hallucinations with patient upon arrival not understanding why he was brought to the ED but noting he is very anxious and requesting medication. #1. Reported altered mental status, questionable hallucinations, unclear exact etiology with leukocytosis (of note during recent admission was on IV Solu- Medrol certainly could elevated in relation to this but uncertain): Will admit to PCU, maintain on fall and aspiration precautions, will obtain ammonia level as well as ABG in addition to procalcitonin, will continue patient's Augmentin regimen however low threshold to transition to IV regimen if necessary, will avoid aggressive hydration given recent presentation with heart failure exacerbation, TSH and magnesium also requested, will maintain on telemetry to ensure no arrhythmia and will cycle cardiac enzymes, PT/OT/case management consulted for discharge planning. If there is no obvious source and patient remains confused may need to consider MRI of the brain however lower suspicion for stroke given therapeutic INR. #2. Recent Acute HFpEF Exacerbation: Chest x-ray appears similar to previous however awaiting final read per radiology, will continue Coumadin with INR trending, statin therapy, atenolol, spironolactone, Lasix regimen, avoid aggressive hydration, discontinue IV fluids initiated in the ED, most recent echocardiogram during recent admission 09/10/2024 with normal LV size, LV systolicfunction lower limits of normal, EF 53%, mild focal MV calcification, bileaflet,PASP 40 mmHg. #3. Recent aspiration pneumonia: Will maintain on aspiration precautions, will reconsult speech therapy, will continue oral Augmentin regimen, will continue diet adjustment with nectar thickened liquids. #4. PAF: Recent presentation with RVR likely related to pulmonary condition upon presentation, will continue patient home Coumadin with INR trending as wellas atenolol home regimen. #5. CAD: Status post previous CABG x 2 and PCI noted of the distal left main and then the circumflex artery, also saphenous vein graft to the obtuse marginalbranch and ECHEVARRIA to the LAD previously noted to be patent with an occluded right coronary artery and usef-sy-hyadz collaterals evident, will continue baby aspirin, Coumadin with INR trending, statin therapy, atenolol, not on ISSAC inhibitor/ARB potentially secondary to underlying CKD stage II but uncertain. #6. Chronic COPD with chronic hypoxic respiratory failure: Will maintain on 3 LNC home oxygen supplementation, temporarily hold home inhaler and transition interim to ATC budesonide therapy given PAF with RVR recent presentation concurrently, PRN albuterol, HOB, IS parameters. #7. Hypertension: Continue home regimen including spironolactone, Lasix, atenolol with hold parameters as needed, PRN hydralazine. #8. Hyperlipidemia: Will continue patient home statin therapy. #9. Hypothyroidism: Will continue patient on levothyroxine regimen, TSH requested. #10. Chronic neuropathy: Will cautiously continue patient on gabapentin regimen, low threshold to hold for sedation. #11. History of CVA: Patient with history of previous strokes including left brainstem stroke, will continue to baby aspirin, Coumadin with INR trending, statin therapy, hypertensive regimen as noted. #12. Chronic Kidney Disease Stage II, per GFR trending: Admission BUN/Cr 24/0.1, GFR 87, baseline renal function 0.6-0.9, repeat BMP in AM. #13. Anxiety and depression, panic attacks: Will continue patient on paroxetineregimen. Administered low-dose IV Ativan in the ED however patient following asexpected is somnolent thus will avoid further administration if able. #14. Obesity: Weight loss and lifestyle changes encouraged. #15. DVT prophylaxis: Will continue Coumadin with INR trending, 3.1 upon admission. #16. CODE status: Full Code. Charges/Coding Visit Charges Inpatient E&M: 87227 Init Hosp L3 09/16/24 2141 <Electronically signed by Olivia Walters MD> Cosigner Signature (if applicable): CC: Dr. Olivia Walters MD; Dr. Shayne Zaidi MD~ Signed [facility] Work Phone: Hospital Discharge instructionsAdditional Instructions [facility]: [facility]: Reason for referral (narrative)* Outpatient Procedure (Routine) - Closed Specialty Diagnoses / Procedures Referred By Contac t Referred To [facility] Diagnoses 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 of s[place] tribe heart with angina pectoris (HCC) Paroxysmal atrial fibrillation (HCC) Procedures ECG COMPLETE ECG ROUTINE ECG W/LEAST 12 LDS W/I&R Paddy Zaidi MD [address] [place] [address] [facility] [address] Referral ID Status Reason Start Date Expiration Date V isits Requested Visits Authorized [id number] Closed Auto-Generate d Referral 05/21/2022 05/21/2023 1 1 T [facility] for referral (narrative)* Outpatient Procedure (Routine) - Authorized Specialty Diagnoses / Procedures Referred By Contac t Referred To [facility] Diagnoses 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) Hypoxemia Procedures SIX MINUTE WALK CARDIOPULMONARY EXERCISE STRESS Paddy Zaidi MD [address] [place] [address] [address] Referral ID Status Reason Start Date Expiration Date Visits Requested Visits Authorized [id number] Authorized Auto-Generat ed Referral 06/07/2023 07/06/2024 1 1 T [facility] for referral (narrative)* Outpatient Procedure (Routine) - Authorized Specialty Diagnoses / Procedures Referred By Contac t Referred To [facility] Diagnoses Chronic obstructive pulmonary disease, unspecified COPD type (HCC) Procedures OXIMETRY WITH AMBULATION NONINVASIVE EAR/PULSE OXIMETRY MULTIPLE DETER Burton Huynh MD [address] [place] [address] [address] Referral ID Status Reason Start Date Expiration Date Visits Requested Visits Authorized [id number] Authorized Auto-Generat ed Referral 03/05/2024 04/04/2025 1 1 * MRI/CT (Routine) - Authorized Specialty Diagnoses / Procedures [facility] CT IMAGING Diagnoses Pneumonia of left lower lobe due to infectious organism Lung nodules Procedures CT CHEST WO IVCON DIAGNOSTIC COMPUTED TOMOGRAPHY THORAX W/O CNTRST Burton Huynh MD [address] [place] [address] Ct Imaging [id number] Referral ID Status Reason Start Date Expiration Date Visits Requested Visits Authorized [id number] Authorized Auto-Generat ed Referral 03/05/2024 04/04/2025 1 1 * Outpatient Procedure (Routine) - Closed Specialty Diagnoses / Procedures [facility] Diagnoses Chronic obstructive pulmonary disease, unspecified COPD type (HCC) Procedures LUNG DIFFUSION CAPACITY (DLCO) DIFFUSING CAPACITY Burton Huynh MD [address] [place] [address] [address] Referral ID Status Reason Start Date Expiration Date V isits Requested Visits Authorized [id number] Closed Auto-Generate d Referral 03/05/2024 04/04/2025 1 1 * Outpatient Procedure (Routine) - Closed Specialty Diagnoses / Procedures Referred By Contac t Referred To Contact [facility] Diagnoses Chronic obstructive pulmonary disease, unspecified COPD type (HCC) Procedures SPIROMETRY WITH DILATOR IF OBSTRUCTED BRNCDILAT RSPSE SPMTRY PRE&POST-BRNCDILAT ADMBurton Farooq MD [address] [place] [address] Respiratory [place] [address] [place] [address] Referral ID Status Reason Start Date Expiration Date V isits Requested Visits Authorized [id number] Closed Auto-Generate d Referral 03/05/2024 04/04/2025 1 1 [facility] Summary Purpose Family History No Family [...] Will No December 14 5:17pm Power of Travel Specialist No December 14, 2021 5:17pm Advance Directive Response Recorded Date/ Time Living Will No September 22 7:03pm Power of Travel Specialist Yes September 22, 023 7:03pm Name of Medical Power of Travel Specialist GILA September 22, 2022 7:03pm Advance Directive Response Recorded Date/ Time Living Will No March 15 2:08pm Power of Travel Specialist Yes March 15, 2023 2:08pm Name of Medical Power of Travel Specialist Gila March 15, 2023 2:08pm Advance Directive Response Recorded Date/ Time Do you have a Healthcare Power of Travel Specialist? No September 10, 2024 12:54am Advance Directive Response Recorded Date/ Time Do you have a Healthcare Power of Travel Specialist? No September 10, 2024 12:54am Do you have a Healthcare Power of Travel Specialist? Yes September 16, 2024 6:27pm Advance Directive Response Recorded Date/ Time Do you have a Healthcare Pow er of Travel Specialist? No September 10, 2024 12:54am Do you have a Healthcare Pow er of Travel Specialist? 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 September 10, 2024 1:26am Chest pain September 10, 2024 1:2 6am Congestive heart failure September 10 1:26am Generalized weakness September 10, 2024 1: 26am History of coronary artery stent placeme nt September 10, 2024 1:26am Hyperlipidemia September 10, 2024 1:2 6am Overweight (BMI 25.0-29.9) September 10 025 1:26am Paroxysmal atrial fibrillation with RVR September 10, 2024 1:26am Respiratory insufficiency September 10 1:26am Subtherapeutic anticoagulation September 1:26am Tinea cruris September 10, 2024 1:2 6am COPD with acute exacerbation September 10, 2024 1:26am HTN (hypertension) September 10, 2024 1:2 6am Chief Complaint Admit Date PNA, AE CHF, RESPIRATORY INSUFFICIENCY, ANXIETY September 10, 2024 1:26am PNA, AE CHF, RESPIRATORY INSUFFICIENCY, ANXIETY September 10, 2024 7:51am PNA, AE CHF, RESPIRATORY INSUFFICIENCY, ANXIETY September 11, 2024 7:41am PNA, AE CHF, RESPIRATORY INSUFFICIENCY, ANXIETY September 11, 2024 4:16pm PNA, AE CHF, RESPIRATORY INSUFFICIENCY, ANXIETY September 12, 2024 3:03pm ENCEPHALOPATHY September 16, 2024 9: 19pm Reason for Visit Admit Date Acute exacerbation of chronic heart fail ure September 10, 2024 1:26am Anxiety disorder with panic attacks Sepu 2024 1:26am Aspiration pneumonia September 10, 2024 1: 26am 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 September 10, 2024 1:26am Chest pain September 10, 2024 1:2 6am Congestive heart failure September 10 1:26am Generalized weakness September 10, 2024 1: 26am History of coronary artery stent placeme nt September 10, 2024 1:26am Hyperlipidemia September 10, 2024 1:2 6am Overweight (BMI 25.0-29.9) September 10 025 1:26am Paroxysmal atrial fibrillation with RVR September 10, 2024 1:26am Respiratory insufficiency September 10 1:26am Subtherapeutic anticoagulation September 1:26am Tinea cruris September 10, 2024 1:2 6am COPD with acute exacerbation September 10, 2024 1:26am HTN (hypertension) September 10, 2024 1:2 6am Altered mental status September 16, 2024 9:19pm Anxiety September 16, 2024 9: 19pm Leukocytosis September 16, 2024 9: 19pm Chief Complaint Admit Date PNA, AE CHF, RESPIRATORY INSUFFICIENCY, ANXIETY September 10, 2024 1:26am PNA, AE CHF, RESPIRATORY INSUFFICIENCY, ANXIETY September 10, 2024 7:51am PNA, AE CHF, RESPIRATORY INSUFFICIENCY, ANXIETY September 11, 2024 7:41am PNA, AE CHF, RESPIRATORY INSUFFICIENCY, ANXIETY September 11, 2024 4:16pm PNA, AE CHF, RESPIRATORY INSUFFICIENCY, ANXIETY September 12, 2024 3:03pm ENCEPHALOPATHY September 16, 2024 9: 19pm ENCEPHALOPATHY September 17, 2024 8: 30am ENCEPHALOPATHY September 18, 2024 8: 17am ENCEPHALOPATHY September 19, 2024 9: 41am Reason for Referral Specialty Diagnoses / Procedures Referred By Jovan milian Referred To Contact Cardiology Diagnoses Paroxysmal atrial fibrillation (HCC) Procedures CONSULT TO CARDIOLOGY OFFICE/OUTPATIENT [facility] 60 MINUTES Hever Martínez, 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.[employer] ASSISTANT [address] [place] [place] [address] Referral ID Status Reason Start Date Expiration Date Visits Requested Visits Authorized [id number] Authorized PCP Requested Referral 02/14/2024 02/13/2025 1 1 Additional Source Comments (unrecognized sect ion and content) No Status Records FoundNo Status Records FoundNo Status Records FoundNo Status Records Found INFORMATION SOURCE (unrecogn ized section and content) DATE CREATED AUTHOR 06/30/2018 [facility] DATE CREATED AUTHOR AUTHOR'S ORGANIZ ATION 09/15/2024 [facility] DATE CREATED AUTHOR AUTHOR'S ORGANIZ ATION 09/25/2024 [facility] DATE CREATED AUTHOR AUTHOR'S ORGANIZ ATION 09/26/2024 [facility] Source Comments (unrecognize d section and content) In the event this informatio n is protected by the Federal Confidentiality of Alcohol and Drug Abuse Patient Records regulations: The Federal rules restrict any use of the information to criminally investigate or prosecute any alcohol or drug abuse patient.[facility] [place]In the event this information is protected by the Federal Confidentiality of Alcohol and Drug Abuse Patient Records regulations: The Federal rules restrict any use of the information to criminally investigate or prosecute any alcohol or drug abuse patient.[facility] [place]In the event this information is protected by the Federal Confidentiality of Alcohol and Drug Abuse Patient Records regulations: The Federal rules restrict any use of the information to criminally investigate or prosecute any alcohol or drug abuse patient.[facility] [place]In the event this information is protected by the Federal Confidentiality of Alcohol and Drug Abuse Patient Records regulations: The Federal rules restrict any use of the information to criminally investigate or prosecute any alcohol or drug abuse patient.[facility] [place]In the event this information is protected by the Federal Confidentiality of Alcohol and Drug Abuse Patient Records regulations: The Federal rules restrict any use of the information to criminally investigate or prosecute any alcohol or drug abuse patient.[facility] [place]In the event this information is protected by the Federal Confidentiality of Alcohol and Drug Abuse Patient Records regulations: The Federal rules restrict any use of the information to criminally investigate or prosecute any alcohol or drug abuse patient.[facility] [place]In the event this information is protected by the Federal Confidentiality of Alcohol and Drug Abuse Patient Records regulations: The Federal rules restrict any use of the information to criminally investigate or prosecute any alcohol or drug abuse patient.[facility] [place]In the event this information is protected by the Federal Confidentiality of Alcohol and Drug Abuse Patient Records regulations: The Federal rules restrict any use of the information to criminally investigate or prosecute any alcohol or drug abuse patient.[facility] [place]In the event this information is protected by the Federal Confidentiality of Alcohol and Drug Abuse Patient Records regulations: The Federal rules restrict any use of the information to criminally investigate or prosecute any alcohol or drug abuse patient.[facility] [place]In the event this information is protected by the Federal Confidentiality of Alcohol and Drug Abuse Patient Records regulations: The Federal rules restrict any use of the information to criminally investigate or prosecute any alcohol or drug abuse patient.[facility] [place]In the event this information is protected by the Federal Confidentiality of Alcohol and Drug Abuse Patient Records regulations: The Federal rules restrict any use of the information to criminally investigate or prosecute any alcohol or drug abuse patient.[facility] [place]In the event this information is protected by the Federal Confidentiality of Alcohol and Drug Abuse Patient Records regulations: The Federal rules restrict any use of the information to criminally investigate or prosecute any alcohol or drug abuse patient.[facility] [place]In the event this information is protected by the Federal Confidentiality of Alcohol and Drug Abuse Patient Records regulations: The Federal rules restrict any use of the information to criminally investigate or prosecute any alcohol or drug abuse patient.[facility] [place]In the event this information is protected by the Federal Confidentiality of Alcohol and Drug Abuse Patient Records regulations: The Federal rules restrict any use of the information to criminally investigate or prosecute any alcohol or drug abuse patient.[facility] [place]In the event this information is protected by the Federal Confidentiality of Alcohol and Drug Abuse Patient Records regulations: The Federal rules restrict any use of the information to criminally investigate or prosecute any alcohol or drug abuse patient.[facility] [place]In the event this information is protected by the Federal Confidentiality of Alcohol and Drug Abuse Patient Records regulations: The Federal rules restrict any use of the information to criminally investigate or prosecute any alcohol or drug abuse patient.[facility] [place]In the event this information is protected by the Federal Confidentiality of Alcohol and Drug Abuse Patient Records regulations: The Federal rules restrict any use of the information to criminally investigate or prosecute any alcohol or drug abuse patient.[facility] [place]In the event this information is protected by the Federal Confidentiality of Alcohol and Drug Abuse Patient Records regulations: The Federal rules restrict any use of the information to criminally investigate or prosecute any alcohol or drug abuse patient.[facility] [place]In the event this information is protected by the Federal Confidentiality of Alcohol and Drug Abuse Patient Records regulations: The Federal rules restrict any use of the information to criminally investigate or prosecute any alcohol or drug abuse patient.[facility] [place]In the event this information is protected by the Federal Confidentiality of Alcohol and Drug Abuse Patient Records regulations: The Federal rules restrict any use of the information to criminally investigate or prosecute any alcohol or drug abuse patient.[facility] [place]In the event this information is protected by the Federal Confidentiality of Alcohol and Drug Abuse Patient Records regulations: The Federal rules restrict any use of the information to criminally investigate or prosecute any alcohol or drug abuse patient.[facility] [place]In the event this information is protected by the Federal Confidentiality of Alcohol and Drug Abuse Patient Records regulations: The Federal rules restrict any use of the information to criminally investigate or prosecute any alcohol or drug abuse patient.[facility] [place]In the event this information is protected by the Federal Confidentiality of Alcohol and Drug Abuse Patient Records regulations: The Federal rules restrict any use of the information to criminally investigate or prosecute any alcohol or drug abuse patient.[facility] [place]In the event this information is protected by the Federal Confidentiality of Alcohol and Drug Abuse Patient Records regulations: The Federal rules restrict any use of the information to criminally investigate or prosecute any alcohol or drug abuse patient.[facility] [place]In the event this information is protected by the Federal Confidentiality of Alcohol and Drug Abuse Patient Records regulations: The Federal rules restrict any use of the information to criminally investigate or prosecute any alcohol or drug abuse patient.[facility] [place]In the event this information is protected by the Federal Confidentiality of Alcohol and Drug Abuse Patient Records regulations: The Federal rules restrict any use of the information to criminally investigate or prosecute any alcohol or drug abuse patient.[facility] [place]In the event this information is protected by the Federal Confidentiality of Alcohol and Drug Abuse Patient Records regulations: The Federal rules restrict any use of the information to criminally investigate or prosecute any alcohol or drug abuse patient.[facility] [place]In the event this information is protected by the Federal Confidentiality of Alcohol and Drug Abuse Patient Records regulations: The Federal rules restrict any use of the information to criminally investigate or prosecute any alcohol or drug abuse patient.[facility] [place]In the event this information is protected by the Federal Confidentiality of Alcohol and Drug Abuse Patient Records regulations: The Federal rules restrict any use of the information to criminally investigate or prosecute any alcohol or drug abuse patient.[facility] [place]In the event this information is protected by the Federal Confidentiality of Alcohol and Drug Abuse Patient Records regulations: The Federal rules restrict any use of the information to criminally investigate or prosecute any alcohol or drug abuse patient.[facility] [place]In the event this information is protected by the Federal Confidentiality of Alcohol and Drug Abuse Patient Records regulations: The Federal rules restrict any use of the information to criminally investigate or prosecute any alcohol or drug abuse patient.[facility] [place]In the event this information is protected by the Federal Confidentiality of Alcohol and Drug Abuse Patient Records regulations: The Federal rules restrict any use of the information to criminally investigate or prosecute any alcohol or drug abuse patient.[facility] [place]In the event this information is protected by the Federal Confidentiality of Alcohol and Drug Abuse Patient Records regulations: The Federal rules restrict any use of the information to criminally investigate or prosecute any alcohol or drug abuse patient.[facility] [place]In the event this information is protected by the Federal Confidentiality of Alcohol and Drug Abuse Patient Records regulations: The Federal rules restrict any use of the information to criminally investigate or prosecute any alcohol or drug abuse patient.[facility] [place]In the event this information is protected by the Federal Confidentiality of Alcohol and Drug Abuse Patient Records regulations: The Federal rules restrict any use of the information to criminally investigate or prosecute any alcohol or drug abuse patient.[facility] [place]In the event this information is protected by the Federal Confidentiality of Alcohol and Drug Abuse Patient Records regulations: The Federal rules restrict any use of the information to criminally investigate or prosecute any alcohol or drug abuse patient.[facility] [place]In the event this information is protected by the Federal Confidentiality of Alcohol and Drug Abuse Patient Records regulations: The Federal rules restrict any use of the information to criminally investigate or prosecute any alcohol or drug abuse patient.[facility] [place]In the event this information is protected by the Federal Confidentiality of Alcohol and Drug Abuse Patient Records regulations: The Federal rules restrict any use of the information to criminally investigate or prosecute any alcohol or drug abuse patient.[facility] [place]In the event this information is protected by the Federal Confidentiality of Alcohol and Drug Abuse Patient Records regulations: The Federal rules restrict any use of the information to criminally investigate or prosecute any alcohol or drug abuse patient.[facility] [place]In the event this information is protected by the Federal Confidentiality of Alcohol and Drug Abuse Patient Records regulations: The Federal rules restrict any use of the information to criminally investigate or prosecute any alcohol or drug abuse patient.[facility] [place]In the event this information is protected by the Federal Confidentiality of Alcohol and Drug Abuse Patient Records regulations: The Federal rules restrict any use of the information to criminally investigate or prosecute any alcohol or drug abuse patient.[facility] [place]In the event this information is protected by the Federal Confidentiality of Alcohol and Drug Abuse Patient Records regulations: The Federal rules restrict any use of the information to criminally investigate or prosecute any alcohol or drug abuse patient.[facility] [place]In the event this information is protected by the Federal Confidentiality of Alcohol and Drug Abuse Patient Records regulations: The Federal rules restrict any use of the information to criminally investigate or prosecute any alcohol or drug abuse patient.[facility] [place]In the event this information is protected by the Federal Confidentiality of Alcohol and Drug Abuse Patient Records regulations: The Federal rules restrict any use of the information to criminally investigate or prosecute any alcohol or drug abuse patient.[facility] [place]In the event this information is protected by the Federal Confidentiality of Alcohol and Drug Abuse Patient Records regulations: The Federal rules restrict any use of the information to criminally investigate or prosecute any alcohol or drug abuse patient.[facility] [place]In the event this information is protected by the Federal Confidentiality of Alcohol and Drug Abuse Patient Records regulations: The Federal rules restrict any use of the information to criminally investigate or prosecute any alcohol or drug abuse patient.[facility] [place]In the event this information is protected by the Federal Confidentiality of Alcohol and Drug Abuse Patient Records regulations: The Federal rules restrict any use of the information to criminally investigate or prosecute any alcohol or drug abuse patient.[facility] [place]In the event this information is protected by the Federal Confidentiality of Alcohol and Drug Abuse Patient Records regulations: The Federal rules restrict any use of the information to criminally investigate or prosecute any alcohol or drug abuse patient.[facility] [place]In the event this information is protected by the Federal Confidentiality of Alcohol and Drug Abuse Patient Records regulations: The Federal rules restrict any use of the information to criminally investigate or prosecute any alcohol or drug abuse patient.[facility] [place]In the event this information is protected by the Federal Confidentiality of Alcohol and Drug Abuse Patient Records regulations: The Federal rules restrict any use of the information to criminally investigate or prosecute any alcohol or drug abuse patient.[facility] [place]In the event this information is protected by the Federal Confidentiality of Alcohol and Drug Abuse Patient Records regulations: The Federal rules restrict any use of the information to criminally investigate or prosecute any alcohol or drug abuse patient.[facility] [place]In the event this information is protected by the Federal Confidentiality of Alcohol and Drug Abuse Patient Records regulations: The Federal rules restrict any use of the information to criminally investigate or prosecute any alcohol or drug abuse patient.[facility] [place]In the event this information is protected by the Federal Confidentiality of Alcohol and Drug Abuse Patient Records regulations: The Federal rules restrict any use of the information to criminally investigate or prosecute any alcohol or drug abuse patient.[facility] [place]In the event this information is protected by the Federal Confidentiality of Alcohol and Drug Abuse Patient Records regulations: The Federal rules restrict any use of the information to criminally investigate or prosecute any alcohol or drug abuse patient.[facility] [place]In the event this information is protected by the Federal Confidentiality of Alcohol and Drug Abuse Patient Records regulations: The Federal rules restrict any use of the information to criminally investigate or prosecute any alcohol or drug abuse patient.[facility] [place]In the event this information is protected by the Federal Confidentiality of Alcohol and Drug Abuse Patient Records regulations: The Federal rules restrict any use of the information to criminally investigate or prosecute any alcohol or drug abuse patient.[facility] [place]In the event this information is protected by the Federal Confidentiality of Alcohol and Drug Abuse Patient Records regulations: The Federal rules restrict any use of the information to criminally investigate or prosecute any alcohol or drug abuse patient.[facility] [place]In the event this information is protected by the Federal Confidentiality of Alcohol and Drug Abuse Patient Records regulations: The Federal rules restrict any use of the information to criminally investigate or prosecute any alcohol or drug abuse patient.[facility] [place]In the event this information is protected by the Federal Confidentiality of Alcohol and Drug Abuse Patient Records regulations: The Federal rules restrict any use of the information to criminally investigate or prosecute any alcohol or drug abuse patient.[facility] [place]In the event this information is protected by the Federal Confidentiality of Alcohol and Drug Abuse Patient Records regulations: The Federal rules restrict any use of the information to criminally investigate or prosecute any alcohol or drug abuse patient.[facility] [place]In the event this information is protected by the Federal Confidentiality of Alcohol and Drug Abuse Patient Records regulations: The Federal rules restrict any use of the information to criminally investigate or prosecute any alcohol or drug abuse patient.[facility] [place]In the event this information is protected by the Federal Confidentiality of Alcohol and Drug Abuse Patient Records regulations: The Federal rules restrict any use of the information to criminally investigate or prosecute any alcohol or drug abuse patient.[facility] OhioIn the event this information is protected by the Federal Confidentiality of Alcohol and Drug Abuse Patient Records regulations: The Federal rules restrict any use of the information to criminally investigate or prosecute any alcohol or drug abuse patient.[facility] OhioIn the event this information is protected by the Federal Confidentiality of Alcohol and Drug Abuse Patient Records regulations: The Federal rules restrict any use of the information to criminally investigate or prosecute any alcohol or drug abuse patient.[facility] [place]In the event this information is protected by the Federal Confidentiality of Alcohol and Drug Abuse Patient Records regulations: The Federal rules restrict any use of the information to criminally investigate or prosecute any alcohol or drug abuse patient.[facility] [place]In the event this information is protected by the Federal Confidentiality of Alcohol and Drug Abuse Patient Records regulations: The Federal rules restrict any use of the information to criminally investigate or prosecute any alcohol or drug abuse patient.[facility] [place]In the event this information is protected by the Federal Confidentiality of Alcohol and Drug Abuse Patient Records regulations: The Federal rules restrict any use of the information to criminally investigate or prosecute any alcohol or drug abuse patient.[facility] [place]In the event this information is protected by the Federal Confidentiality of Alcohol and Drug Abuse Patient Records regulations: The Federal rules restrict any use of the information to criminally investigate or prosecute any alcohol or drug abuse patient.[facility] [place]In the event this information is protected by the Federal Confidentiality of Alcohol and Drug Abuse Patient Records regulations: The Federal rules restrict any use of the information to criminally investigate or prosecute any alcohol or drug abuse patient.[facility] [place]In the event this information is protected by the Federal Confidentiality of Alcohol and Drug Abuse Patient Records regulations: The Federal rules restrict any use of the information to criminally investigate or prosecute any alcohol or drug abuse patient.[facility] [place]In the event this information is protected by the Federal Confidentiality of Alcohol and Drug Abuse Patient Records regulations: The Federal rules restrict any use of the information to criminally investigate or prosecute any alcohol or drug abuse patient.[facility] [place]In the event this information is protected by the Federal Confidentiality of Alcohol and Drug Abuse Patient Records regulations: The Federal rules restrict any use of the information to criminally investigate or prosecute any alcohol or drug abuse patient.[facility] OhioIn the event this information is protected by the Federal Confidentiality of Alcohol and Drug Abuse Patient Records regulations: The Federal rules restrict any use of the information to criminally investigate or prosecute any alcohol or drug abuse patient.[facility] [place] the event this information is protected by the Federal Confidentiality of Alcohol and Drug Abuse Patient Records regulations: The Federal rules restrict any use of the information to criminally investigate or prosecute any alcohol or drug abuse patient.[facility] [place] the event this information is protected by the Federal Confidentiality of Alcohol and Drug Abuse Patient Records regulations: The Federal rules restrict any use of the information to criminally investigate or prosecute any alcohol or drug abuse patient.[facility] [place] the event this information is protected by the Federal Confidentiality of Alcohol and Drug Abuse Patient Records regulations: The Federal rules restrict any use of the information to criminally investigate or prosecute any alcohol or drug abuse patient.[facility] [place] the event this information is protected by the Federal Confidentiality of Alcohol and Drug Abuse Patient Records regulations: The Federal rules restrict any use of the information to criminally investigate or prosecute any alcohol or drug abuse patient.[facility] [place] the event this information is protected by the Federal Confidentiality of Alcohol and Drug Abuse Patient Records regulations: The Federal rules restrict any use of the information to criminally investigate or prosecute any alcohol or drug abuse patient.[facility] [place]In the event this information is protected by the Federal Confidentiality of Alcohol and Drug Abuse Patient Records regulations: The Federal rules restrict any use of the information to criminally investigate or prosecute any alcohol or drug abuse patient.[facility] [place] Reason for Visit (unrecogniz ed section and content) Reason Comments Refill Request Reason Onset Date Comments Refill Request 06/09/2021 Reason Comments Follow Up Reason Comments Results Reason Comments Received Outside Medical Records [facility] ED Reason Comments Received Outside Medical Records [facility] Car diac Cath Reason Comments Received Outside Medical Records Liver U S [facility] Reason Comments Received Outside Medical Records [facility] chest xray 12/18/2021 Reason Comments Received Outside Medical Records [facility] discharge instructions. 12/18/2021 Reason Comments Erroneous encounter-disregard Reason Comments Received Outside Medical Records EKG [facility] Reason Comments Hospital F/U Reason Comments Received Outside Medical Records [facility] 12 lead EKG 12/16/2021 and 12/17/2021 Reason Comments Received Outside Medical Records Pulmona ry Medicine [facility] Reason Comments Medication Problem Reason Onset Date Comments Population Health Navigation Outreach 04/27/2022 HCC Reason Comments Follow Up Reason Comments Follow Up pneumonia Reason Comments Orders Reason Comments Patient Question Reason Comments Received Outside Medical Records [facility] 09/07 07/30 Reason Comments Orders [employer] annual oxygen prescription renewal Reason Comments Received Outside Medical Records [facility] ED 03/15/23 Reason Onset Date Comments [facility] Navigation Outreach 04/15/2023 [employer] HCCs 2.16.24 Reason [...] IF OBSTRUCTED BRNCDILAT RSPSE SPMTRY PRE&POST-BRNCDILAT ADMN Burton Huynh MD [address] [place] [address] [facility] [address] [place] [address] Referral ID Status Reason Start Date Expiration Date V isits Requested Visits Authorized [id number] Closed Auto-Generate d Referral 03/05/2024 04/04/2025 1 1 Specialty Diagnoses / Procedures Referred By Contac t Referred To Contact [facility] Diagnoses Chronic obstructive pulmonary disease, unspecified COPD type (HCC) Procedures LUNG DIFFUSION CAPACITY (DLCO) DIFFUSING CAPACITY Burton Huynh MD [address] [facility] [place] [place] [address] [facility] [address] [place] [address] Referral ID Status Reason Start Date Expiration Date V isits Requested Visits Authorized [id number] Closed Auto-Generate d Referral 03/05/2024 04/04/2025 1 [...] WITH AMBULATION NONINVASIVE EAR/PULSE OXIMETRY MULTIPLE DETER Burton Huynh MD [address] [place] [address] Phone: tel: fax: [facility] [address] [place] [address] Referral ID Status Reason Start Date Expiration Date V isits Requested Visits Authorized [id number] Closed Auto-Generate d Referral 03/05/2024 04/04/2025 1 1 Reason Comments Established Patient COPD follow up Reason Comments Radiology CT Specialty Diagnoses / Procedures Referred By Contthania t Referred To Contact [facility] Diagnoses Pneumonia of left lower lobe due to infectious organism Lung nodules Procedures CT CHEST WO IVCON DIAGNOSTIC COMPUTED TOMOGRAPHY THORAX W/O CNTRST Burton Huynh MD [address] [place] [address] Phone: tel: fax: [place] [address] Referral ID Status Reason Start Date Expiration Date V isits Requested Visits Authorized [id number] Closed Auto-Generate d Referral 03/05/2024 04/04/2025 1 [...] n review per request of payor - [employer] Reason Comments Received Outside Medical Records [facility] ED summary Reason Comments Received Outside Medical Records [facility] Naomi ro consult Reason Comments Received Outside Medical Records [facility] Discharge summary 09/19/2024 Encephalopathy Reason Comments Hospital F/U Care Teams (unrecognized sec tion and content) Palaeontologist Relationship Specialty Start Date End Date Paddy Zaidi MD [address] [place], [place] [id number] PCP - General Family Practice 05/27/15 Palaeontologist Relationship Specialty Start Date End Date Paddy Zaidi MD [address] [place], [place] [id number] PCP - General Family Practice 05/27/15 Palaeontologist Relationship Specialty Start Date End Date Paddy Zaidi MD [address] [place] [address] PCP - General Family Practice 05/27/15 Palaeontologist Relationship Specialty Start Date End Date Paddy Zaidi MD [facility] [place] [address] PCP - General Family Practice 05/27/15 Palaeontologist Relationship Specialty Start Date End Date Paddy Zaidi MD [address] [place] [address], [place] [address] PCP - General Family Practice 05/27/15 Palaeontologist Relationship Specialty Start Date End Date Paddy Zaidi MD [address] [place] [address], [place] [address] PCP - General Family Medicine 05/27/15 Palaeontologist Relationship Specialty Start Date End Date Paddy Zaidi MD [address] [place] [address], [place] [address] PCP - General Family Medicine 05/27/15 Palaeontologist Relationship Specialty Start Date End Date Paddy Zaidi MD [address] [place] [address], [place] [address] PCP - General Family Medicine 05/27/15 Palaeontologist Relationship Specialty Start Date End Date Paddy Zaidi MD [address] [place] [address], [place] [address] PCP - General Family Medicine 05/27/15 Palaeontologist Relationship Specialty Start Date End Date Paddy Zaidi MD [address] [place] [address], [place] [address] PCP - General Family Medicine 05/27/15 Palaeontologist Relationship Specialty Start Date End Date Paddy Zaidi MD [address] [place] [address], [place] [address] PCP - General Family Medicine 05/27/15 Palaeontologist Relationship Specialty Start Date End Date Paddy Zaiid MD [facility] [place] [address] PCP - General Family Medicine 05/27/15 Palaeontologist Relationship Specialty Start Date End Date Paddy Zaidi MD [address] [place] [address], [place] [address] PCP - General Family Medicine 05/27/15 Palaeontologist Relationship Specialty Start Date End Date Paddy Zaidi MD [address] [place] [address], [place] [address] PCP - General Family Medicine 05/27/15 Palaeontologist Relationship Specialty Start Date End Date Paddy Zaidi MD [address] [place] [address], [place] [address] PCP - General Family Medicine 05/27/15 Palaeontologist Relationship Specialty Start Date End Date Paddy Zaiid MD [address] [place] [address], [place] [address] PCP - General Family Medicine 05/27/15 Palaeontologist Relationship Specialty Start Date End Date Paddy Zaidi MD [address] [place] [address], [place] [address] PCP - General Family Medicine 05/27/15 Palaeontologist Relationship Specialty Start Date End Date Paddy Zaidi MD [address] [place] [address], [place] [address] PCP - General Family Medicine 05/27/15 Palaeontologist Relationship Specialty Start Date End Date Paddy Zaidi MD [address] [place] [address], [place] [address] PCP - General Family Medicine 05/27/15 Palaeontologist Relationship Specialty Start Date End Date Paddy Zaidi MD [address] [place] [address] PCP - General Family Medicine 05/27/15 Team Status: Active Member Role Status Dates Dr. Shayne Zaidi MD Family Provider Active Dr. Shayne Zaidi MD Primary Care Provider Active Team Status: Inactive Member Role Status Dates Dr. Shayne Zaidi MD Primary Care Provider Active Dr. Adrian Eddy DO Emergency Provider Active Palaeontologist Relationship Specialty Start Date End Date Paddy Zaidi MD [address] [place] [address] PCP - General Family Medicine 05/27/15 Palaeontologist Relationship Specialty Start Date End Date Paddy Zaidi MD [address] [place] [address] PCP - General Family Medicine 05/27/15 Team Status: Inactive Member Role Status Dates Dr. Shayne Zaidi MD Primary Care Provider Active Dr. Parker Metzger MD Emergency Provider Active Palaeontologist Relationship Specialty Start Date End Date Paddy Zaidi MD [address] [place] [address] PCP - General Family Medicine 05/27/15 Palaeontologist Relationship Specialty Start Date End Date Paddy Zaidi MD [address] [place] [address] PCP - General Family Medicine 05/27/15 Palaeontologist Relationship Specialty Start Date End Date Paddy Zaidi MD [address] [place] [address] PCP - General Family Medicine 05/27/15 Palaeontologist Relationship Specialty Start Date End Date Paddy Zaidi MD [address] [place] [address] PCP - General Family Medicine 05/27/15 Palaeontologist Relationship Specialty Start Date End Date Paddy Zaidi MD [address] [place] [address] PCP - General Family Medicine 05/27/15 Palaeontologist Relationship Specialty Start Date End Date Paddy Zaidi MD [address] [place] [address] PCP - General Family Medicine 05/27/15 Palaeontologist Relationship Specialty Start Date End Date Paddy Zaidi MD [address] [place] [address] PCP - General Family Medicine 05/27/15 Palaeontologist Relationship Specialty Start Date End Date Paddy Zaidi MD [address] [place] [address] PCP - General Family Medicine 05/27/15 Hever Martínez APRN.GRANTS ASSISTANT [address] [facility] [address] [address] [place], [place] [address] Machine Tool Rebuilder Internal Medicine 01/15/24 Palaeontologist Relationship Specialty Start Date End Date Paddy Zaidi MD [address] [place] [address] PCP - General Family Medicine 05/27/15 Hever Martínez APRN.GRANTS ASSISTANT [address] [facility] [address] [address] [place], [place] [address] Machine Tool Rebuilder Internal Medicine 01/15/24 Palaeontologist Relationship Specialty Start Date End Date Paddy Zaidi MD [address] [place] [address] PCP - General Family Medicine 05/27/15 Hever Martínez APRN.GRANTS ASSISTANT [address] [facility] [place] [address] Machine Tool Rebuilder Internal Medicine 01/15/24 Palaeontologist Relationship Specialty Start Date End Date Paddy Zaidi MD [address] [place] [address] PCP - General Family Medicine 05/27/15 Hever Martínez, 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.GRANTS ASSISTANT [address] [facility] [place] [address] Machine Tool Rebuilder Internal Medicine 01/15/24 Palaeontologist Relationship Specialty Start Date End Date Paddy Zaidi MD [address] [place] [address] PCP - General Family Medicine 05/27/15 Hever Martínez, 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.GRANTS ASSISTANT [address] [facility] [place] [address] Machine Tool Rebuilder Internal Medicine 01/15/24 Palaeontologist Relationship Specialty Start Date End Date Paddy Zaidi MD [address] [place] [address] PCP - General Family Medicine 05/27/15 Hever Martínez, 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.GRANTS ASSISTANT [address] [facility] [address] [place], [place] [address] Machine Tool Rebuilder Internal Medicine 01/15/24 Palaeontologist Relationship Specialty Start Date End Date Paddy Zaidi MD [address] [place] [address] PCP - General Family Medicine 05/27/15 Hever Martínez, 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.GRANTS ASSISTANT [address] [facility] [address] [place], [place] [address] Machine Tool Rebuilder Internal Medicine 01/15/24 Palaeontologist Relationship Specialty Start Date End Date Paddy Zaidi MD [address] [place] [address] PCP - General Family Medicine 05/27/15 Hever Martínez, 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.GRANTS ASSISTANT [address] [facility] [address] [address] [place], [place] [address] Machine Tool Rebuilder Internal Medicine 01/15/24 Palaeontologist Relationship Specialty Start Date End Date Paddy Ziadi MD [address] [place] [address] PCP - General Family Medicine 05/27/15 Hever Martínez, 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.GRANTS ASSISTANT [address] [facility] [address] [place], [place] [address] Machine Tool Rebuilder Internal Medicine 01/15/24 Palaeontologist Relationship Specialty Start Date End Date Paddy Zaidi MD [address] [place] [address] PCP - General Family Medicine 05/27/15 Hever Martínez, 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.GRANTS ASSISTANT [address] [facility] [address] [place], [place] [address] Machine Tool Rebuilder Internal Medicine 01/15/24 Palaeontologist Relationship Specialty Start Date End Date Paddy Zaidi MD [address] [place], [place] [address] PCP - General Family Medicine 05/27/15 Hever Martínez, 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.GRANTS ASSISTANT [address] [facility] [address] [place], [place] [id number] Machine Tool Rebuilder Internal Medicine 01/15/24 Palaeontologist Relationship Specialty Start Date End Date Paddy Zaidi MD [address] [place], [place] [address] PCP - General Family Medicine 05/27/15 Hever Martínez, 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.GRANTS ASSISTANT [address] [facility] [address] [place], [place] [id number] Machine Tool Rebuilder Internal Medicine 01/15/24 Palaeontologist Relationship Specialty Start Date End Date Paddy Zaidi MD [facility] [place] [address] PCP - General Family Medicine 05/27/15 Hever Martínez, 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.GRANTS ASSISTANT [address] [facility] [address] [place], [place] [address] Machine Tool Rebuilder Internal Medicine 01/15/24 Palaeontologist Relationship Specialty Start Date End Date Paddy Zaidi MD [address] [place] [address] PCP - General Family Medicine 05/27/15 Hever Martínez, 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.GRANTS ASSISTANT [address] [facility] [address] [place] [address] Machine Tool Rebuilder Internal Medicine 01/15/24 Palaeontologist Relationship Specialty Start Date End Date Paddy Zaidi MD [address] [place] [address] PCP - General Family Medicine 05/27/15 Hever Martínez, NOAR.GRANTS ASSISTANT [address] [place] [address] Machine Tool Rebuilder Internal Medicine 01/15/24 Team Status: Active Member Role/Relationship Status Dates Dr. Shayne Zaiid MD Primary Care Provider Active Team Status: [...] 2024 End: September 12, 2024 Dr. Kristopher Rya DO Other Provider Active Sta rt: September [...] September 10, 2024 End: September 12, 2024 Tylor Rose BROOM HANDLE DIPPER, BROOM HANDLE DIPPER-C Other Provider Active Start : September 10, [...] September 10, 2024 Dr. Aayush Sibley , Other Provider Active S tart: September 10, 2024 Dr. Dallas Muller MD Attending Provider Active S tart: September 10, 2024 Team Status: Active Member Role/Relationship Status Dates Dr. Shayne Zaidi MD Primary Care Provider Active Start: September 11, 2024 Dr. Kristopher Valencia , DO Admit Provider Active Start: September 11, 2024 Dr. Kristopher Valencia , Other Provider Active Start: September 11, 2024 Dr. Aayush Sibley , Other Provider Active S tart: September 11, [...] : September 11, 2024 Dr. Kristopher Ray , Other Provider Active Sta rt: September 11, [...] Other Provider Active Start: September 11, 2024 Tylor Rose BROOM HANDLE DIPPER, BROOM HANDLE DIPPER-C Other Provider Active Start : September 11, [...] Other Provider Active Start: September 11, 2024 Tylor Rose BROOM HANDLE DIPPER, BROOM HANDLE DIPPER-C Other Provider Active Start : September 11, 2024 Jenny Yancey PA, PA Other Provider Active Start: September 11, 2024 JI Burgos Other Provider Active Start: September 11, 2024 Team Status: Active Member Role/Relationship Status Dates Dr. Shayne Zaidi MD Primary Care Provider Active Start: September 12, 2024 Dr. Kristopher Valencia , Admit Provider Active Start: September 12, 2024 Dr. Kristopher Valencia DO Other Provider Active Start: September 12, 2024 Dr. Aayush Sibley DO Attending Provider Active Start: September 12, 2024 Dr. Aayush Sibley DO Other Provider Active S tart: September 12, 2024 Dr. Ranjit Fuentes MD Other Provider Active Start: September 12, 2024 Dr. Douglas Alegre MD Other Provider Active Start : September 12, 2024 Dr. Yifan Katz MD Other Provider Active St art: September 12, 2024 Dr. Jasvir Deutsch MD Other Provider Active Star t: September 12, 2024 Dr. Rocky Coronado MD Other Provider Active Sta rt: September 12, 2024 Dr. Yoseph Winn MD Other Provider Active Star t: September 12, 2024 Dr. Dallas Muller MD Other Provider Active Start : September 12, 2024 Dr. Kristopher Ray DO Other Provider Active Sta rt: September 12, 2024 Dr. John Nayak MD Other Provider Active Star t: September 12, 2024 Dr. Rosalino Asif MD Other Provider Active St art: September 12, 2024 Dr. Patricia Burden MD Other Provider Active Start: September 12, 2024 Dr. Martínez Mclean MD Other Provider Active S tart: September 12, 2024 Dr. Omar Hidalgo MD Other Provider Active Start: September 12, 2024 Tylor Rose BROOM HANDLE DIPPER, BROOM HANDLE DIPPER-C Other Provider Active Start : September 12, 2024 Jenny Yancey PA, PA Other Provider Active Start: September 12, 2024 JI Burogs Other Provider Active Start: September 12, 2024 Team Status: Active Member Role/Relationship Status Dates Dr. Shayne Zaidi MD Primary Care Provider Active Start: September 16, 2024 Dr. Chris Cole DO Emergency Provider Active S tart: September 16, 2024 Dr. Olivia Walters MD Admit Provider Active St art: September 16, 2024 Dr. Olivia Walters MD Attending Provider Active Start: September 16, 2024 Dr. Olivia Walters MD Other Provider Active St art: September 16, 2024 Team Status: Inactive Member Role/Relationship Status Dates Dr. Shayne Zaidi MD Primary Care Provider Active Start: September 16, 2024 End: September 19, 2024 Dr. Chris Cole DO Emergency Provider Active S tart: September 16, 2024 End: September 19, 2024 Dr. Olivia Walters MD Admit Provider Active St art: September 16, 2024 End: September 19, 2024 Dr. Olivia Walters MD Other Provider Active St art: September 16, 2024 End: September 19, 2024 Dr. Trevor Burton MD Attending Provider Active Start: September 16, 2024 End: September 19, 2024 Dr. Judit Rock MD Other Provider Active Start: September 16, 2024 End: September 19, 2024 Dr. Trixie Jeronimo MD Other Provider Active Start: September 16, 2024 End: September 19, 2024 Ant Espinoza MD Other Provider Active Start : September 16, 2024 End: September 19, 2024 Darius Tapia MS Other Provider Active Start: A 2024 End: September 19, 2024 Dr. German Perera MD Other Provider Active Sta rt: September 16, 2024 End: September 19, 2024 Luis Antonio Suarez MD Other Provider Active Start: September 16, 2024 End: September 19, 2024 KEVIN BEARD MD Other Provider Active Start: A ugust 2024 End: September 19, 2024 Aga Servin MD Other Provider Active Start : September 16, 2024 End: September 19, 2024 Dr. Susana Gonzales MD Other Provider Active Start : September 16, 2024 End: September 19, 2024 Stan Mays MD Other Provider Active Start: September 16, 2024 End: September 19, 2024 Sweetie Rowe MD Other Provider Active Start: September 16, 2024 End: September 19, 2024 Maikel Morocho MD Other Provider Active Start: 2024 End: September 19, 2024 Nerissa Lebron MD Other Provider Active Start : September 16, 2024 End: September 19, 2024 Dr. Denise Aparicio DO Other Provider Active St art: September 16, 2024 End: September 19, 2024 Dr. Nato Rivera MD Other Provider Active Sta rt: September 16, 2024 End: September 19, 2024 Dr. Eden Matthew MD Other Provider Active Start : September 16, 2024 End: September 19, 2024 Dr. Jake Espinoza MD Other Provider Active Start: September 16, 2024 End: September 19, 2024 Dr. Samson Richard MD Other Provider Active Start : September 16, 2024 End: September 19, 2024 Dr. Ernesto Reeves MD Other Provider Active St art: September 16, 2024 End: September 19, 2024 Dr. John Calhoun MD Other Provider Active Sta rt: September 16, 2024 End: September 19, 2024 Dr. Philippe Syed MD Other Provider Active Start: September 16, 2024 End: September 19, 2024 Dr. Eulogio Mitchell MD Other Provider Active St art: September 16, 2024 End: September 19, 2024 Dr. Selam Monique MD Other Provider Active Star t: September 16, 2024 End: September 19, 2024 Dr. Tevin Shin MD Other Provider Active St art: September 16, 2024 End: September 19, 2024 Dr. Karma Cabrera MD Other Provider Active Start: September 16, 2024 End: September 19, 2024 Gonzalo Goyal MD Other Provider Active Start: September 16, 2024 End: September 19, 2024 Team Status: Active Member Role/Relationship Status Dates Dr. Shayne Zaidi MD Primary Care Provider Active Start: September 17, 2024 Dr. Chris Cole DO Emergency Provider Active S tart: September 17, 2024 Dr. Olivia Walters MD Admit Provider Active St art: September 17, 2024 Dr. Olivia Walters MD Other Provider Active St art: September 17, 2024 Dr. Trevor Burton MD Attending Provider Active Start: September 17, 2024 Dr. Trevor Burton MD Other Provider Active Sta rt: September 17, 2024 Team Status: Active Member Role/Relationship Status Dates Dr. Shayne Zaidi MD Primary Care Provider Active Start: September 18, 2024 Dr. Chris Cole DO Emergency Provider Active S tart: September 18, 2024 Dr. Olivia Walters MD Admit Provider Active St art: September 18, 2024 Dr. Olivia Walters MD Other Provider Active St art: September 18, 2024 Dr. Trevor Burton MD Attending Provider Active Start: September 18, 2024 Dr. Trevor Burton MD Other Provider Active Sta rt: September 18, 2024 Dr. Judit Rock MD Other Provider Active Start: September 18, 2024 Dr. Trixie Jeronimo MD Other Provider Active Start: September 18, 2024 Ant Espinoza MD Other Provider Active Start : September 18, 2024 Darius Tapia MS Other Provider Active Start: A 2024 Dr. German Perera MD Other Provider Active Sta rt: September 18, 2024 Luis Antonio Suarez MD Other Provider Active Start: September 18, 2024 KEVIN BEARD MD Other Provider Active Start: A 2024 Aga Servin MD Other Provider Active Start : September 18, 2024 Dr. Susana Gonzales MD Other Provider Active Start : September 18, 2024 Stan Mays MD Other Provider Active Start: September 18, 2024 Sweetie Rowe MD Other Provider Active Start: September 18, 2024 Maikel Morocho MD Other Provider Active Start: [facility] 2024 Nerissa Lebron MD Other Provider Active Start : September 18, 2024 Dr. Denise Aparicio DO Other Provider Active St art: September 18, 2024 Dr. Nato Rivera MD Other Provider Active Sta rt: September 18, 2024 Dr. Eden Matthew MD Other Provider Active Start : September 18, 2024 Dr. Jake Espinoza MD Other Provider Active Start: September 18, 2024 Dr. Samson Richard MD Other Provider Active Start : September 18, 2024 Dr. Ernesto Reeves MD Other Provider Active St art: September 18, 2024 Dr. John Calhoun MD Other Provider Active Sta rt: September 18, 2024 Dr. Philippe Syed MD Other Provider Active Start: September 18, 2024 Dr. Eulogio Mitchell MD Other Provider Active St art: September 18, 2024 Dr. Selam Monique MD Other Provider Active Star t: September 18, 2024 Dr. Tevin Shin MD Other Provider Active St art: September 18, 2024 Dr. Karma Cabrera MD Other Provider Active Start: September 18, 2024 Gonzalo Goyal MD Other Provider Active Start: September 18, 2024 Team Status: Active Member Role/Relationship Status Dates Dr. Shayne Zaidi MD Primary Care Provider Active Start: September 19, 2024 Dr. Chris Cole DO Emergency Provider Active S tart: September 19, 2024 Dr. Olivia Walters MD Admit Provider Active St art: September 19, 2024 Dr. Olivia Walters MD Other Provider Active St art: September 19, 2024 Dr. Trevor Burton MD Attending Provider Active Start: September 19, 2024 Dr. Trevor Burton MD Other Provider Active Sta rt: September 19, 2024 Dr. Judit Rock MD Other Provider Active Start: September 19, 2024 Dr. Trixie Jeronimo MD Other Provider Active Start: September 19, 2024 Ant Espinoza MD Other Provider Active Start : September 19, 2024 Darius Tapia MS Other Provider Active Start: A 2024 Dr. German Perera MD Other Provider Active Sta rt: September 19, 2024 Luis Antonio Suarez MD Other Provider Active Start: September 19, 2024 KEVIN BEARD MD Other Provider Active Start: A ugust 2024 Aga Servin MD Other Provider Active Start : September 19, 2024 Dr. Susana Gonzales MD Other Provider Active Start : September 19, 2024 Stan Mays MD Other Provider Active Start: September 19, 2024 Sweetie Rowe MD Other Provider Active Start: September 19, 2024 Maikel Morocho MD Other Provider Active Start: [facility] 2024 Nerissa Lebron MD Other Provider Active Start : September 19, 2024 Dr. Denise Aparicio DO Other Provider Active St art: September 19, 2024 Dr. Nato Rivera MD Other Provider Active Sta rt: September 19, 2024 Dr. Eden Matthew MD Other Provider Active Start : September 19, 2024 Dr. Jake Espinoza MD Other Provider Active Start: September 19, 2024 Dr. Samson Richard MD Other Provider Active Start : September 19, 2024 Dr. Ernesto Reeves MD Other Provider Active St art: September 19, 2024 Dr. John Calhoun MD Other Provider Active Sta rt: September 19, 2024 Dr. Philippe Syed MD Other Provider Active Start: September 19, 2024 Dr. Eulogio Mitchell MD Other Provider Active St art: September 19, 2024 Dr. Selam Monique MD Other Provider Active Star t: September 19, 2024 Dr. Tevin Shin MD Other Provider Active St art: September 19, 2024 Dr. Karma Cabrera MD Other Provider Active Start: September 19, 2024 Gonzalo Goyal MD Other Provider Active Start: September 19, 2024 Palaeontologist Relationship Specialty Start Date End Date Paddy Zaidi MD [address] [place], [place] [id number] PCP - General Family Medicine 05/27/15 Hever Martínez, 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.GRANTS ASSISTANT [address] [place] [place] [address] [employer] Rebuilder Internal Medicine 01/15/24 Palaeontologist Relationship Specialty Start Date End Date Paddy Zaidi MD [address] [place] [address] PCP - General Family Medicine 05/27/15 Hever Martínez, 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.GRANTS ASSISTANT [address] [place] [place] [address] Machine Tool Rebuilder Internal Medicine 01/15/24 Goals (unrecognized section and [...] BE BASED ON THE PRIMARY CLINICAL RECORDS. [facility] [employer] [facility]. provides no warranty or guarantee of the accuracy or completeness of information in this document.
--- OUTSIDE RECORDS SUMMARY | 2024-09-27 21:38 | XMS RPT_ITS | CCD ---
Author Organization [facility] Care Team Providers Care Nylon Mender Name Role Phone Paddy Zaidi MD Primary [...] Referring Provider Dr. Shayne Zaidi Referring Provider [phone] Daksha GAS APPLIANCE REPAIRER, GAS APPLIANCE REPAIRER-C Shanon Attending Provider Paddy Zaidi MD Primary Care Provider Tanya CARDIOTHORACIC ICU RN.DRAMATIC CRITIC, Hever Unavailable Dr. Shayne Zaidi MD Primary Care Provider [...] MENDOZA, Dr. Kristopher Arambula Other Provider Nael GRHAAM, Dr. Lopez Other Provider Laya GRAHAM, Dr. Burnett Other Provider Jenise GRAHAM, Dr. Gomez Other Provider Caridad GRAHAM, Dr. Soliz Other Provider Gwen GRAHAM, Dr. Nelson Other Provider Rose GAS APPLIANCE REPAIRER-C, Tylor Tobar Other Provider Jenny Rachel Other Provider Moses López Other Provider Maryjo MENDOZA, Dr. Looney Other Provider Renzo GRAHAM, Dr. Haynes Attending Provider TYLOR NG Attending Unavailable PADDY ZAIDI Primary Care Unavailable Dr. Chris Cole DO Emergency Provider Romeo GRAHAM, Dr. Olivia Malave Admit Provider [...] Unavailable Micheal GRAHAM, Dr. Murray Other Provider Olivia Walters Consulting Unavailable Olivia Walters Admitting [...] Goyal Consulting Unavailable Micheal, Trevor Consulting Unavailable [facility] Care Unavailable Alpa Jeffries Attending Unavailable [facility] Care Unavailable Aayush Sibley Referring Unavailable Aayush Sibley Attending Unavailable [facility] Care Unavailable Aayush Sibley Attending Unavailable [...] Alexis Consulting Unavailable Olivia Walters Consulting Unavailable Olivia Walters Admitting Unavailable [facility] Primary Care Unavailable Micheal, Trevor Attending Unavailable [...] IN] Drug Allergy 5 Mental Status Change [facility] Work Phone: (20 sources) oxyCODONE; Translations: [OXYCODONE] Drug Allergy 9 Other: See Comments [facility] (20 sources) Aspirin; Translations: [ASPIRIN] Drug Allergy 9 Unknown [facility] (1 source) oxyCODONE Drug Allergy 5 [facility] Repository Medications Current Medications Medication Drug Class(es) Dates Sig (Normalized) Sig (Original) [id number] actuat albuterol 0.09 mg/actuat metered dose [...] Start: 03-27-2024 take 1 puff(s) by mo [facility] twice daily fluticasone-salmeterol (ADVAIR DISKUS) 250-50 [...] 1 TABLET BY ARACELI TH ONCE DAILY ON AN EMPTY STOMACH [...] WITH BREAKFAST Take 2 tablets by mo [facility] every morning. spironolactone 25 mg oral [...] above: Take 1 tablet by araceli th twice daily for 5 days. apixaban [...] Anticholinergic Start : 03-15 End: 09-10 Ipratropium [place] (Atrovent Hfa) 17 mcg/actuation HFA aerosol inhaler Discontinued 2 NMA INHALATION Q8H 12.9 0 March 15, 2023 1:00am September 10, 2024 1:19am Start: 03-15-2023 take 1 puff(s) by in halation every eight hours Ipratropium [place] (Atrovent Hfa) 17 mcg/actuation HFA aerosol inhaler [...] 1 capsule by inhalation once daily Tiotropium [place] 18 MCG capsule, w/inhalation device Discontinued 18 ug IH DAILY September 09, 2017 12:00am January 12, 2018 3:22pm COPD Start: 09-09-2017 End: 01-12-2018 take 18 ug by inhalation once daily Tiotropium [place] Discontinued 18 MCG IH DAILY September 08, [...] cardiovascular system; Translations: [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] Onset: 12-17-2004 [...] sources) Long-term current use of anticoagulant; Translations: [correction (current) use of anticoagulants] 02-16-2024 Episodic Other aftercare (6 sources) Anticoagulant control - finding; Translations: [Encounter for therapeutic drug level monitoring] 09-10-2024 Episodic Other aftercare (1 source) Encounter for therapeutic drug level monitoring; Translations: [Encounter for therapeutic drug level monitoring] Onset: 09-16-2024 Episodic Other aftercare (2 sources) correction (current) use of anticoagulants; Translations: [correction (current) use of anticoagulants] Onset: 06-29-2024 Episodic [...] CNOV Office Visit (FPWADS ) TYLOR PEDERSEN ([id number]) 1940 M Date Time Provider Department 09/25/24 [...] hospitalizations. Atrial Fibrillation: - Recent hospitalization at [facility] for heart failure, and pneumonia. Known history [...] Contrast on 09-10-2024 Echo Complete W/ Contrast [facility] [address] [place] [address] Echo Complete W/ Contrast 09/10/24 1001 MR#: [id number] Acct: [id number] Name: TYLOR PEDERSEN Rep #: [id number] : 1940 83 From: Dallas Muller MD [...] max P (more content not included)... Normal [facility] Basic Metabolic Profile (BMP )on 09-24-2024 BUN Normal 4-19 [facility] Comment on above: Result Comment: Canc elled via OM: Order cancelled - Patient discharged Performed By: #### L 500.2500 ####[facility] [address] [place], [place], [address] BUN/CRE Normal 10-20 [facility] Comment on above: Result Comment: Canc elled via OM: Order cancelled - Patient discharged Performed By: #### L 500.2500 ####[facility] [address] [place], [address] Calcium Normal 7.6-11.0 [facility] Comment on above: Result Comment: Canc elled via OM: Order cancelled - Patient discharged Performed By: #### L 500.2500 ####[facility] [address] [place], [address] CL Normal 98-108 [facility] Comment on above: Result Comment: Canc elled via OM: Order cancelled - Patient discharged Performed By: #### L 500.2500 ####[facility] [address] [place], [address] CO2 Normal 21.0-32.0 [facility] Comment on above: Result Comment: Canc elled via OM: Order cancelled - Patient discharged Performed By: #### L 500.2500 ####[facility] [address] [place], [address] CREAT,SERUM Normal 0.70-1.20 [facility] Comment on above: Result Comment: Canc elled via OM: Order cancelled - Patient discharged Performed By: #### L 500.2500 ####[facility] [address] [place], [address] eGFR Normal >60 [facility] Comment on above: Result Comment: Canc elled via OM: Order cancelled - Patient discharged Performed By: #### L 500.2500 ####[facility] [address] [place], [address] GAP Normal 5-15 [facility] Comment on above: Result Comment: Canc elled via OM: Order cancelled - Patient discharged Performed By: #### L 500.2500 ####[facility] [address] [place], [address] GLU Normal 70-99 [facility] Comment on above: Result Comment: Canc elled via OM: Order cancelled - Patient discharged Performed By: #### L 500.2500 ####[facility] [address] [place], [address] Potassium Normal 3.3-5.1 [facility] Comment on above: Result Comment: Canc elled via OM: Order cancelled - Patient discharged Performed By: #### L 500.2500 ####[facility] [address] [place], [address] Basic Metabolic Profile (BMP) Normal 133-145 [facility] Comment on above: Result Comment: Canc elled via OM: Order cancelled - Patient discharged Performed By: #### L 500.2500 ####[facility] [address] [place], [address] Basic Metabolic Profile (BMP )on 09-23-2024 BUN Normal 4-19 [facility] Comment on above: Result Comment: Canc elled via OM: Order cancelled - Patient discharged Performed By: #### L 9000.0810 #### [facility] [address] [place], [address] BUN/CRE Normal 10-20 [facility] Comment on above: Result Comment: Canc elled via OM: Order cancelled - Patient discharged Performed By: #### L 9000.0810 #### [facility] [address] [place], [address] Calcium Normal 7.6-11.0 [facility] Comment on above: Result Comment: Canc elled via OM: Order cancelled - Patient discharged Performed By: #### L 9000.0810 #### [facility] [address] [place], [address] CL Normal 98-108 [facility] Comment on above: Result Comment: Canc elled via OM: Order cancelled - Patient discharged Performed By: #### L 9000.0810 #### [facility] [address] [place], [address] CO2 Normal 21.0-32.0 [facility] Comment on above: Result Comment: Canc elled via OM: Order cancelled - Patient discharged Performed By: #### L 9000.0810 #### [facility] [address] [place], [address] CREAT,SERUM Normal 0.70-1.20 [facility] Comment on above: Result Comment: Canc elled via OM: Order cancelled - Patient discharged Performed By: #### L 9000.0810 #### [facility] [address] [place], [address] eGFR Normal >60 [facility] Comment on above: Result Comment: Canc elled via OM: Order cancelled - Patient discharged Performed By: #### L 9000.0810 #### [facility] [address] [place], [address] GAP Normal 5-15 [facility] Comment on above: Result Comment: Canc elled via OM: Order cancelled - Patient discharged Performed By: #### L 9000.0810 #### [facility] [address] [place], [address] GLU Normal 70-99 [facility] Comment on above: Result Comment: Canc elled via OM: Order cancelled - Patient discharged Performed By: #### L 9000.0810 #### [facility] [address] [place], [address] Potassium Normal 3.3-5.1 [facility] Comment on above: Result Comment: Canc elled via OM: Order cancelled - Patient discharged Performed By: #### L 9000.0810 #### [facility] [address] [place], [address] Basic Metabolic Profile (BMP) Normal 133-145 [facility] Comment on above: Result Comment: Canc elled via OM: Order cancelled - Patient discharged Performed By: #### L 9000.0810 #### [facility] [address] [place], [address] Basic Metabolic Profile (BMP )on 09-22-2024 BUN Normal 4-19 [facility] Comment on above: Result Comment: Canc elled via OM: Order cancelled - Patient discharged Performed By: #### L 9000.0810 #### [facility] [address] [place], [address] BUN/CRE Normal 10-20 [facility] Comment on above: Result Comment: Canc elled via OM: Order cancelled - Patient discharged Performed By: #### L 9000.0810 #### [facility] [address] [place], [address] Calcium Normal 7.6-11.0 [facility] Comment on above: Result Comment: Canc elled via OM: Order cancelled - Patient discharged Performed By: #### L 9000.0810 #### [facility] [address] [place], [address] CL Normal 98-108 [facility] Comment on above: Result Comment: Canc elled via OM: Order cancelled - Patient discharged Performed By: #### L 9000.0810 #### [facility] [address] [place], [address] CO2 Normal 21.0-32.0 [facility] Comment on above: Result Comment: Canc elled via OM: Order cancelled - Patient discharged Performed By: #### L 9000.0810 #### [facility] [address] [place], [address] CREAT,SERUM Normal 0.70-1.20 [facility] Comment on above: Result Comment: Canc elled via OM: Order cancelled - Patient discharged Performed By: #### L 9000.0810 #### [facility] [address] [place], [address] eGFR Normal >60 [facility] Comment on above: Result Comment: Canc elled via OM: Order cancelled - Patient discharged Performed By: #### L 9000.0810 #### [facility] [address] [place], [address] GAP Normal 5-15 [facility] Comment on above: Result Comment: Canc elled via OM: Order cancelled - Patient discharged Performed By: #### L 9000.0810 #### [facility] [address] [place], [address] GLU Normal 70-99 [facility] Comment on above: Result Comment: Canc elled via OM: Order cancelled - Patient discharged Performed By: #### L 9000.0810 #### [facility] [address] [place], [address] Potassium Normal 3.3-5.1 [facility] Comment on above: Result Comment: Canc elled via OM: Order cancelled - Patient discharged Performed By: #### L 9000.0810 #### [facility] [address] [place], [address] Basic Metabolic Profile (BMP) Normal 133-145 [facility] Comment on above: Result Comment: Canc elled via OM: Order cancelled - Patient discharged Performed By: #### L 9000.0810 #### [facility] [address] [place], [address] Basic Metabolic Profile (BMP )on 09-21-2024 BUN Normal 4-19 [facility] Comment on above: Result Comment: Canc elled via OM: Order cancelled - Patient discharged Performed By: #### L 501.9985 #### [facility] [address] [place], [address] BUN/CRE Normal 10-20 [facility] Comment on above: Result Comment: Canc elled via OM: Order cancelled - Patient discharged Performed By: #### L 501.9985 #### [facility] [address] [place], [address] Calcium Normal 7.6-11.0 [facility] Comment on above: Result Comment: Canc elled via OM: Order cancelled - Patient discharged Performed By: #### L 501.9985 #### [facility] [address] [place], [address] CL Normal 98-108 [facility] Comment on above: Result Comment: Canc elled via OM: Order cancelled - Patient discharged Performed By: #### L 501.9985 #### [facility] [address] [place], [address] CO2 Normal 21.0-32.0 [facility] Comment on above: Result Comment: Canc elled via OM: Order cancelled - Patient discharged Performed By: #### L 501.9985 #### [facility] [address] [place], [address] CREAT,SERUM Normal 0.70-1.20 [facility] Comment on above: Result Comment: Canc elled via OM: Order cancelled - Patient discharged Performed By: #### L 501.9985 #### [facility] [address] [place], [address] eGFR Normal >60 [facility] Comment on above: Result Comment: Canc elled via OM: Order cancelled - Patient discharged Performed By: #### L 501.9985 #### [facility] [address] [place], [address] GAP Normal 5-15 [facility] Comment on above: Result Comment: Canc elled via OM: Order cancelled - Patient discharged Performed By: #### L 501.9985 #### [facility] [address] [place], [address] GLU Normal 70-99 [facility] Comment on above: Result Comment: Canc elled via OM: Order cancelled - Patient discharged Performed By: #### L 501.9985 #### [facility] [address] [place], [address] Potassium Normal 3.3-5.1 [facility] Comment on above: Result Comment: Canc elled via OM: Order cancelled - Patient discharged Performed By: #### L 501.9985 #### [facility] [address] [place], [address] Basic Metabolic Profile (BMP) Normal 133-145 [facility] Comment on above: Result Comment: Canc elled via OM: Order cancelled - Patient discharged Performed By: #### L 501.9985 #### [facility] [address] [place], [address] Basic Metabolic Profile (BMP )on 09-20-2024 BUN Normal 4-19 [facility] Comment on above: Result Comment: Canc elled via OM: Order cancelled - Patient discharged Performed By: #### L 300.3900, L100.0100, L500.2500 ####[facility] [address] [place], [address] BUN/CRE Normal 10-20 [facility] Comment on above: Result Comment: Canc elled via OM: Order cancelled - Patient discharged Performed By: #### L 300.3900, L100.0100, L500.2500 ####[facility] [address] [place], [address] Calcium Normal 7.6-11.0 [facility] Comment on above: Result Comment: Canc elled via OM: Order cancelled - Patient discharged Performed By: #### L 300.3900, L100.0100, L500.2500 ####[facility] [address] [place], [address] CL Normal 98-108 [facility] Comment on above: Result Comment: Canc elled via OM: Order cancelled - Patient discharged Performed By: #### L 300.3900, L100.0100, L500.2500 ####[facility] [address], [address] CO2 Normal 21.0-32.0 [facility] Comment on above: Result Comment: Canc elled via OM: Order cancelled - Patient discharged Performed By: #### L 300.3900, L100.0100, L500.2500 ####[facility] [address] [place], [address] CREAT,SERUM Normal 0.70-1.20 [facility] Comment on above: Result Comment: Canc elled via OM: Order cancelled - Patient discharged Performed By: #### L 300.3900, L100.0100, L500.2500 ####[facility] [address] [place], [address] eGFR Normal >60 [facility] Comment on above: Result Comment: Canc elled via OM: Order cancelled - Patient discharged Performed By: #### L 300.3900, L100.0100, L500.2500 ####[facility] [address] [place], [address] GAP Normal 5-15 [facility] Comment on above: Result Comment: Canc elled via OM: Order cancelled - Patient discharged Performed By: #### L 300.3900, L100.0100, L500.2500 ####[facility] [address] [place], [address] GLU Normal 70-99 [facility] Comment on above: Result Comment: Canc elled via OM: Order cancelled - Patient discharged Performed By: #### L 300.3900, L100.0100, L500.2500 ####[facility] [address] [place], [address] Potassium Normal 3.3-5.1 [facility] Comment on above: Result Comment: Canc elled via OM: Order cancelled - Patient discharged Performed By: #### L 300.3900, L100.0100, L500.2500 ####[facility] [address] [place], [address] Basic Metabolic Profile (BMP) Normal 133-145 [facility] Comment on above: Result Comment: Canc elled via OM: Order cancelled - Patient discharged Performed By: #### L 300.3900, L100.0100, L500.2500 ####[facility] [address] [place], [address] CBC W/Diff, Automatedon 08-1 Absolute Neut Normal 2.0-7.7 [facility] Comment on above: Result Comment: Canc elled via OM: Order cancelled - Patient discharged Performed By: #### L 300.3900, L100.0100, L500.2500 ####[facility] [address] [place], [address] HCT Normal 40-54 [facility] Comment on above: Result Comment: Canc elled via OM: Order cancelled - Patient discharged Performed By: #### L 300.3900, L100.0100, L500.2500 ####[facility] [address] [place], [address] HGB Normal 13.0-16.5 [facility] Comment on above: Result Comment: Canc elled via OM: Order cancelled - Patient discharged Performed By: #### L 300.3900, L100.0100, L500.2500 ####[facility] [address] [place], [address] MCH Normal 27.0-32.0 [facility] Comment on above: Result Comment: Canc elled via OM: Order cancelled - Patient discharged Performed By: #### L 300.3900, L100.0100, L500.2500 ####[facility] [address] [place], [address] MCHC Normal 32-36 [facility] Comment on above: Result Comment: Canc elled via OM: Order cancelled - Patient discharged Performed By: #### L 300.3900, L100.0100, L500.2500 ####[facility] [address] [place], [address] MCV Normal 80-94 [facility] Comment on above: Result Comment: Canc elled via OM: Order cancelled - Patient discharged Performed By: #### L 300.3900, L100.0100, L500.2500 ####[facility] [address] [place], [address] NEUT% Normal 47-70 [facility] Comment on above: Result Comment: Canc elled via OM: Order cancelled - Patient discharged Performed By: #### L 300.3900, L100.0100, L500.2500 ####[facility] [address] [place], [address] PLT Normal 150-450 [facility] Comment on above: Result Comment: Canc elled via OM: Order cancelled - Patient discharged Performed By: #### L 300.3900, L100.0100, L500.2500 ####[facility] [address] [place], [address] RBC Normal 4.6-6.2 [facility] Comment on above: Result Comment: Canc elled via OM: Order cancelled - Patient discharged Performed By: #### L 300.3900, L100.0100, L500.2500 ####[facility] [address] [place], [address] RDW CV Normal 11.6-14.6 [facility] Comment on above: Result Comment: Canc elled via OM: Order cancelled - Patient discharged Performed By: #### L 300.3900, L100.0100, L500.2500 ####[facility] [address] [place], [address] RDW SD Normal 35.1-43.9 [facility] Comment on above: Result Comment: Canc elled via OM: Order cancelled - Patient discharged Performed By: #### L 300.3900, L100.0100, L500.2500 ####[facility] [address] [place], [address] WBC Normal 4.4-11.0 [facility] Comment on above: Result Comment: Canc elled via OM: Order cancelled - Patient discharged Performed By: #### L 300.3900, L100.0100, L500.2500 ####[facility] [address] [place], [address] [facility] 09-20-2024 [facility] Telephone (POOJAWAPATY) TYLOR PEDERSEN ([id number]) 1940 M Date Time Provider Department 09/20/24 PADDY ZAIDI During your visit today, we recorded the following information about you: Cassandra Ann LPN 09/20/2024 1:48 PM Signed Received 09/20/2024 from [facility]. Placed in provider's inbox for review. Route to [place] for scanning. Altered mental status hallucination/delusion Allergies As of Date: 09/20/2024 Noted Allergy Reaction ASPIRIN 04/19/2018 16 - Unknown OXYCODONE 04/19/2018 14 - Other: See Comments PERCODAN (OXYCODONE-ASPIRIN) 12/17/2004 1 - Mental Status Change Date Reviewed: 09/09/2024 Reviewed by: Daina Sampson, RN - Fully Assessed Reason for Visit: Received Outside Medical Records [1406] Cmt: [facility] Discharge summary 09/19/2024 Encephalopathy Prescriptions as of [...] Anxiety [F41.9] 12/23/2021 Atherosclerotic heart disease of chilkat coronar*10/19/2017 Cerebrovascular accident (CVA) (HCC) [I63.9] 12/23/2021 [...] Status:Closed by CASSANDRA ANN on 09/20/24 Normal [facility] Prothrombin Time w/INRon INR Normal [facility] Comment on above: Result Comment: Canc elled via OM: Order cancelled - Patient discharged Performed By: #### L 300.3900, L100.0100, L500.2500 ####[facility] [address] [place], [address] PROTIME Normal 11.7-14.9 [facility] Comment on above: Result Comment: Canc elled via OM: Order cancelled - Patient discharged Performed By: #### L 300.3900, L100.0100, L500.2500 ####[facility] [address] [place], [address] Absolute lymphocyte countOrd ered By: Trevor Burton on 09-19-2024 Lymphocytes Auto (Unsp spec) [#/Vol] 0.77 10*3/uL Low 0.83-4.51 [facility] Absolute neutrophil countOrd ered By: Trevor Burton on 09-19-2024 Neutrophils (Bld) [#/Vol] 8.3 10*3/uL High 2.0-7.7 [facility] Anion gap in Serum or Plasma Ordered By: Trevor Burton on 09-19-2024 Anion gap [Moles/Vol] 10 mmol/L 5-15 [facility] Automated lymphocyte count a s percentage of total leukocytesOrdered By: Trevor Burton on 09-19-2024 Lymphocytes/100 WBC Auto (Unsp spec) 7.5 % Low 19-41 [facility] BUN/creatinine ratioOrdered By: Trevor Burton on 09-19-2024 Urea nitrogen/Creatinine [Mass ratio] 32.3 mg/mg High 10-20 [facility] Basic Metabolic Profile (BMP )on 09-19-2024 BUN/CRE 32.3 RATIO High - [facility] Comment on above: Performed By: #### L 9000.0810 #### [facility] [address] [place], [address] Calcium [Mass/Vol] 8.7 mg/dL Normal 7.6-11.0 [facility] Comment on above: Performed By: #### L 9000.0810 #### [facility] [address] [place], [address] Chloride [Moles/Vol] 98 mmol/L Normal 98-108 [facility] Comment on above: Performed By: #### L 9000.0810 #### [facility] [address] [place], [address] CO2 [Moles/Vol] 30.4 mmol/L Normal 21.0-32.0 [facility] Comment on above: Performed By: #### L 9000.0810 #### [facility] [address] [place], [address] Creatinine [Mass/Vol] 0.74 mg/dL Normal 0.70-1.20 [facility] Comment on above: Performed By: #### L 9000.0810 #### [facility] [address] [place], [address] ECRCL 78.36 ml/min Normal 50-250 [facility] Comment on above: Performed By: #### L 9000.0810 #### [facility] [address] [place], [address] GAP 10 Normal 5-15 [facility] Comment on above: Performed By: #### L 9000.0810 #### [facility] [address] [place], [address] GFR/1.73 sq M.predicted among non-blacks MDRD (S/P/Bld) [Vol rate/Area] 89 mL/min/{1.73_m2} Normal >60 [facility] Comment on above: Result Comment: mL/m in/1.73m2 CKD-EPI Creatinine Equation (2020) Performed By: #### L 9000.0810 #### [facility] [address] [place], [address] Glucose [Mass/Vol] 93 mg/dL Normal 70-99 [facility] Comment on above: Performed By: #### L 9000.0810 #### [facility] [address] [place], [address] Potassium [Moles/Vol] 3.9 mmol/L Normal 3.3-5.1 [facility] Comment on above: Performed By: #### L 9000.0810 #### [facility] [address] [place], [address] Sodium [Moles/Vol] 138 mmol/L Normal 133-145 [facility] Comment on above: Performed By: #### L 9000.0810 #### [facility] [address] [place], [address] Urea nitrogen [Mass/Vol] 24 mg/dL High 4-19 [facility] Comment on above: Performed By: #### L 9000.0810 #### [facility] [address] [place], [address] Basophil percentageOrdered B y: Trevor Burton on 09-19-2024 Basophils/100 WBC (Bld) 0.4 % 0-1 [facility] CBC W/Diff, Automatedon 09-07-2024 Absolute Lymph 0.77 X10 3/uL Low 0.83-4.51 [facility] Comment on above: Performed By: #### L 501.9985 #### [facility] [address] [place], [address] Absolute Neut 8.3 X10 3/uL High 2.0-7.7 [facility] Comment on above: Performed By: #### L 501.9985 #### [facility] [address] [place], [address] Basophils/100 WBC (Bld) 0.4 % Normal 0-1 [facility] Comment on above: Performed By: #### L 501.9985 #### [facility] [address] [place], [address] Eosinophils/100 WBC (Bld) 3.9 % Normal 0-5 [facility] Comment on above: Performed By: #### L 501.9985 #### [facility] [address] [place], [address] Erythrocyte distribution width (RBC) [Ratio] 13.4 % Normal 11.6-14.6 [facility] Comment on above: Performed By: #### L 501.9985 #### [facility] [address] [place], [address] Hematocrit (Bld) [Volume fraction] 39.4 % Low 40-54 [facility] Comment on above: Performed By: #### L 501.9985 #### [facility] [address] [place], [address] Hemoglobin (Bld) [Mass/Vol] 12.3 g/dL Low 13.0-16.5 [facility] Comment on above: Performed By: #### L 501.9985 #### [facility] [address] [place], [address] IG% 1.400 High 0.0-0.9 [facility] Comment on above: Result Comment: IG% - Immature Granulocytes (promyelocytes, myelocytes and metamyelocytes) > 1% indicates that a LEFT SHIFT is Present. Performed By: #### L 501.9985 #### [facility] [address] [place], [address] Lymphocytes/100 WBC (Bld) 7.5 % Low 19-41 [facility] Comment on above: Performed By: #### L [id number] #### [facility] [address] [place], [address] MCH (RBC) [Entitic mass] 30.2 pg Normal 27.0-32.0 [facility] Comment on above: Performed By: #### L [id number] #### [facility] [address] [place], [address] MCHC (RBC) [Mass/Vol] 31.2 g/dL Low 32-36 [facility] Comment on above: Performed By: #### L [id number] #### [facility] [address] [place], [address] MCV (RBC) [Entitic vol] 96.8 fL High 80-94 [facility] Comment on above: Performed By: #### L [id number] #### [facility] [address] [place], [address] Monocytes/100 WBC (Bld) 6.4 % Normal 0-10 [facility] Comment on above: Performed By: #### L [id number] #### [facility] [address] [place], [address] Neutrophils/100 WBC (Bld) 80.4 % High 47-70 [facility] Comment on above: Performed By: #### L 501.9985 #### [facility] [address] [place], [address] Nucleated RBC (Bld) [#/Vol] 0 10*3/uL Normal 0-5 [facility] Comment on above: Performed By: #### L 501.9985 #### [facility] [address] [place], [address] Platelet mean volume (Bld) [Entitic vol] 9.6 fL Normal 6.2-12.0 [facility] Comment on above: Performed By: #### L 501.9985 #### [facility] [address] [place], [address] Platelets (Bld) [#/Vol] 171 10*3/uL Normal 150-450 [facility] Comment on above: Performed By: #### L 501.9985 #### [facility] [address] [place], [address] RBC (Bld) [#/Vol] 4.07 10*6/uL Low 4.6-6.2 [facility] Comment on above: Performed By: #### L [id number] #### [facility] [address] [place], [address] RDW SD 48.2 fl High 35.1-43.9 [facility] Comment on above: Performed By: #### L [id number] #### [facility] [address] [place], [address] WBC (Bld) [#/Vol] 10.3 10*3/uL Normal 4.4-11.0 [facility] Comment on above: Performed By: #### L 501.9985 #### [facility] [address] [place], [address] Carbon dioxide, total [Moles /volume] in Central venous bloodOrdered By: Trevor Burton on 09-19-2024 CO2 [Moles/Vol] 30.4 mmol/L 21.0-32.0 [facility] Chloride assayOrdered By: Archie Burton on 09-19-2024 Chloride [Moles/Vol] 98 mmol/L 98-108 [facility] Discharge Instructionon 09-07 Discharge Instruction [facility] Medical Records Department [address] [place] [address] Instructions for Home/Discharge Instructions 09/19/24 0857 MR#: [id number] Acct: [id number] Name: TYLOR PEDERSEN Rep #: [id number] : 1940 83 From: Trevor Burton MD [...] Denise Aparicio; Susana Gonzales; Eulogio Mitchell; Trixie eJronimo MD; Nerissa Lebron MD; Maikel Morocho MD; [...] Rowe DO; Gonzalo Goyal MD Signed Normal [facility] Eosinophil percentageOrdered By: Trevor Burton on 09-19-2024 Eosinophils/100 WBC (Bld) 3.9 % 0-5 [facility] Erythrocyte distribution wid th ratioOrdered By: Trevor Burton on 09-19-2024 Erythrocyte distribution width (RBC) [Ratio] 13.4 % 11.6-14.6 [facility] Erythrocyte distribution wid th standard deviationOrdered By: Trevor Burton on 09-19-2024 Erythrocyte distribution width (RBC) [Ratio] 48.2 fl High 35.1-43.9 [facility] Glomerular filtration rate ( GFR) estimation/1.73 sq m using serum, plasma, or whole bOrdered By: Trevor Burton on 09-19-2024 GFR/1.73 sq M.predicted among non-blacks MDRD (S/P/Bld) [Vol rate/Area] 89 mL/min/{1.73_m2} >60 [facility] Comment on above: mL/min/1.73m2 CKD-EP I Creatinine Equation (2020) Hematocrit Auto (Bld) [Volum e fraction]Ordered By: Trevor Burton on 09-19-2024 Hematocrit (Bld) [Volume fraction] 39.4 % Low 40-54 [facility] Hemoglobin measurementOrdere d By: Trevor Burton on 09-19-2024 Hemoglobin (Bld) [Mass/Vol] 12.3 g/dL Low 13.0-16.5 [facility] Immature granulocytes/100 WB C Auto (Bld)Ordered By: Trevor Burton on 09-19-2024 Immature granulocytes/100 WBC (Bld) 1.400 % High 0.0-0.9 [facility] Comment on above: IG% - Immature Granu locytes (promyelocytes, myelocytes and metamyelocytes) > 1% indicates that a LEFT SHIFT is Present. International normalized rat io (INR) calculationOrdered By: Trevor Burton on 09-19-2024 INR Coag (Bld) [Relative time] 2.1 {INR} [facility] MCV (mean corpuscular volume ) determinationOrdered By: Trevor Burton on 09-19-2024 MCV (RBC) [Entitic vol] 96.8 fL High 80-94 [facility] Magnesiumon 09-19-2024 Magnesium [Mass/Vol] 2.5 mg/dL High 1.5-2.2 [facility] Comment on above: Performed By: #### L 9000.0810 #### [facility] [address] [place], [place], [id number] Magnesium measurement (mass/ volume)Ordered By: Kristopher Diamond on 09-19-2024 Magnesium (Unsp spec) [Mass/Vol] 2.5 mg/dL High 1.5-2.2 [facility] Mean corpuscular hemoglobin (MCH) determinationOrdered By: Trevor Burton on 09-19-2024 MCH (RBC) [Entitic mass] 30.2 pg 27.0-32.0 [facility] Mean corpuscular hemoglobin concentration (MCHC) determinationOrdered By: Trevor Burton on 09-19-2024 MCHC (RBC) [Mass/Vol] 31.2 g/dL Low 32-36 [facility] Mean platelet volume determi nationOrdered By: Trevor Burton on 09-19-2024 Platelet mean volume (Bld) [Entitic vol] 9.6 fL 6.2-12.0 [facility] Monocyte percentageOrdered B y: Trevor Burton on 09-19-2024 Monocytes/100 WBC (Bld) 6.4 % 0-10 [facility] Neutrophil percentageOrdered By: Trevor Burton on 09-19-2024 Neutrophils/100 WBC (Bld) 80.4 % High 47-70 [facility] Nucleated red blood cell per centageOrdered By: Trevor Burton on 09-19-2024 Nucleated RBC/100 WBC (Bld) [Ratio] 0 % 0-5 [facility] Platelet countOrdered By: Archie Burton on 09-19-2024 Platelets (Bld) [#/Vol] 171 10*3/uL 150-450 [facility] Potassium measurement (mass/ volume)Ordered By: Trevor Burton on 09-19-2024 Potassium (Unsp spec) [Mass/Vol] 3.9 mmol/L 3.3-5.1 [facility] Prothrombin Time w/INRon INR Coag (PPP) [Relative time] 2.1 {INR} Normal [facility] Comment on above: Performed By: #### L 501.9985 #### [facility] [address] [place], [address] Prothrombin timeOrdered By: Trevor Burton on 09-19-2024 PT Coag (PPP) [Time] 24.4 s High 11.7-14.9 [facility] Comment on above: Performed By: #### L 501.9985 #### [facility] [address] [place], [address] RBC Auto (Bld) [#/Vol]Ordere d By: Trevor Burton on 09-19-2024 RBC (Bld) [#/Vol] 4.07 10*6/uL Low 4.6-6.2 [facility] Serum creatinine measurement (mass/volume)Ordered By: Trevor Burton on 09-19-2024 Creatinine [Mass/Vol] 0.74 mg/dL 0.70-1.20 [facility] Serum glucose measurement (m ass/volume)Ordered By: Trevor Burton on 09-19-2024 Glucose [Mass/Vol] 93 mg/dL 70-99 [facility] Serum or plasma calcium regan urement (mass/volume)Ordered By: Trevor Burton on 09-19-2024 Calcium [Mass/Vol] 8.7 mg/dL 7.6-11.0 [facility] Serum or plasma urea nitroge n measurement (mass/volume)Ordered By: Trevor Burton on 09-19-2024 Urea nitrogen [Mass/Vol] 24 mg/dL High 4-19 [facility] Sodium levelOrdered By: Mayr Burton on 09-19-2024 Sodium [Moles/Vol] 138 mmol/L 133-145 [facility] White blood cell (WBC) count Ordered By: Trevor Burton on 09-19-2024 WBC (Bld) [#/Vol] 10.3 10*3/uL 4.4-11.0 [facility] Basic Metabolic Profile (BMP )on 09-18-2024 BUN/CRE 30.5 RATIO High 10-20 [facility] Comment on above: Order Comment: Comme nts: NPO at [place] prior to lipid panel Performed By: #### L 9000.0810 #### [facility] [address] [place], [address] Calcium [Mass/Vol] 8.7 mg/dL Normal 7.6-11.0 [facility] Comment on above: Order Comment: Comme nts: NPO at [place] prior to lipid panel Performed By: #### L 9000.0810 #### [facility] [address] [place], [address] Chloride [Moles/Vol] 98 mmol/L Normal 98-108 [facility] Comment on above: Order Comment: Comme nts: NPO at [place] prior to lipid panel Performed By: #### L 9000.0810 #### [facility] [address] [place], [address] CO2 [Moles/Vol] 29.9 mmol/L Normal 21.0-32.0 [facility] Comment on above: Order Comment: Comme nts: NPO at [place] prior to lipid panel Performed By: #### L 9000.0810 #### [facility] [address] [place], [address] Creatinine [Mass/Vol] 0.83 mg/dL Normal 0.70-1.20 [facility] Comment on above: Order Comment: Comme nts: NPO at [place] prior to lipid panel Performed By: #### L 9000.0810 #### [facility] [address] [place], [address] ECRCL 76.05 ml/min Normal 50-250 [facility] Comment on above: Order Comment: Comme nts: NPO at [place] prior to lipid panel Performed By: #### L 9000.0810 #### [facility] [address] [place], [address] GAP 9 Normal 5-15 [facility] Comment on above: Order Comment: Comme nts: NPO at [place] prior to lipid panel Performed By: #### L 9000.0810 #### [facility] [address] [place], [address] GFR/1.73 sq M.predicted among non-blacks MDRD (S/P/Bld) [Vol rate/Area] 86 mL/min/{1.73_m2} Normal >60 [facility] Comment on above: Order Comment: Comme nts: NPO at [place] prior to lipid panel Result Comment: mL/m in/1.73m2 CKD-EPI Creatinine Equation (2020) Performed By: #### L 9000.0810 #### [facility] [address] [place], [address] Glucose [Mass/Vol] 107 mg/dL High 70-99 [facility] Comment on above: Order Comment: Comme nts: NPO at [place] prior to lipid panel Performed By: #### L 900.0810 #### [facility] [address] [place], [address] Potassium [Moles/Vol] 4.1 mmol/L Normal 3.3-5.1 [facility] Comment on above: Order Comment: Comme nts: NPO at [place] prior to lipid panel Performed By: #### L 8999.0810 #### [facility] [address] [place], [address] Sodium [Moles/Vol] 137 mmol/L Normal 133-145 [facility] Comment on above: Order Comment: Comme nts: NPO at [place] prior to lipid panel Performed By: #### L 900.0810 #### [facility] [address] [place], [address] Urea nitrogen [Mass/Vol] 25 mg/dL High 4-19 [facility] Comment on above: Order Comment: Comme nts: NPO at [place] prior to lipid panel Performed By: #### L 9000.0810 #### [facility] [address] [place], [address] CBC W/Diff, Automatedon 09-07 Absolute Lymph 0.78 X10 3/uL Low 0.83-4.51 [facility] Comment on above: Performed By: #### L 9000.0810 #### [facility] [address] [place], [address] Absolute Neut 9.0 X10 3/uL High 2.0-7.7 [facility] Comment on above: Performed By: #### L 900.0810 #### [facility] [address] [place], [address] Basophils/100 WBC (Bld) 0.4 % Normal 0-1 [facility] Comment on above: Performed By: #### L 9000.0810 #### [facility] [address] [place], [address] Eosinophils/100 WBC (Bld) 4.7 % Normal 0-5 [facility] Comment on above: Performed By: #### L 9000.0810 #### [facility] [address] [place], [address] Erythrocyte distribution width (RBC) [Ratio] 13.6 % Normal 11.6-14.6 [facility] Comment on above: Performed By: #### L 9000.0810 #### [facility] [address] [place], [address] Hematocrit (Bld) [Volume fraction] 41.9 % Normal 40-54 [facility] Comment on above: Performed By: #### L 9000.0810 #### [facility] [address] [place], [address] Hemoglobin (Bld) [Mass/Vol] 13.0 g/dL Normal 13.0-16.5 [facility] Comment on above: Performed By: #### L 9000.0810 #### [facility] [address] [place], [address] IG% 1.600 High 0.0-0.9 [facility] Comment on above: Result Comment: IG% - Immature Granulocytes (promyelocytes, myelocytes and metamyelocytes) > 1% indicates that a LEFT SHIFT is Present. Performed By: #### L 9000.0810 #### [facility] [address] [place], [address] Lymphocytes/100 WBC (Bld) 7.0 % Low 19-41 [facility] Comment on above: Performed By: #### L 9000.0810 #### [facility] [address] [place], [address] MCH (RBC) [Entitic mass] 30.3 pg Normal 27.0-32.0 [facility] Comment on above: Performed By: #### L 0.0810 #### [facility] [address] [place], [address] MCHC (RBC) [Mass/Vol] 31.0 g/dL Low 32-36 [facility] Comment on above: Performed By: #### L 0.0810 #### [facility] [address] [place], [address] MCV (RBC) [Entitic vol] 97.7 fL High 80-94 [facility] Comment on above: Performed By: #### L 9000.0810 #### [facility] [address] [place], [address] Monocytes/100 WBC (Bld) 5.8 % Normal 0-10 [facility] Comment on above: Performed By: #### L 900.0810 #### [facility] [address] [place], [address] Neutrophils/100 WBC (Bld) 80.5 % High 47-70 [facility] Comment on above: Performed By: #### L 9000.0810 #### [facility] [address] [place], [address] Nucleated RBC (Bld) [#/Vol] 0 10*3/uL Normal 0-5 [facility] Comment on above: Performed By: #### L 9000.0810 #### [facility] [address] [place], [address] Platelet mean volume (Bld) [Entitic vol] 9.1 fL Normal 6.2-12.0 [facility] Comment on above: Performed By: #### L 9000.0810 #### [facility] [address] [place], [address] Platelets (Bld) [#/Vol] 171 10*3/uL Normal 150-450 [facility] Comment on above: Performed By: #### L 9000.0810 #### [facility] [address] [place], [address] RBC (Bld) [#/Vol] 4.29 10*6/uL Low 4.6-6.2 [facility] Comment on above: Performed By: #### L 9000.0810 #### [facility] [address] [place], [address] RDW SD 49.2 fl High 35.1-43.9 [facility] Comment on above: Performed By: #### L 9000.0810 #### [facility] [address] [place], [address] WBC (Bld) [#/Vol] 11.2 10*3/uL High 4.4-11.0 [facility] Comment on above: Performed By: #### L 9000.0810 #### [facility] [address] [place], [address] [facility]ad[facility]-20[facility]YL[facility] ([id number]) 1940 M Date Time Provider Department 09/18/24 PADDY ZAIDI During your visit today, we recorded the following information about you: Ge Will LPN 09/18/2024 2:34 PM Signed Received neuro consult from [facility]. Placed in provider's inbox for review. 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 Performed By: #### L 501.9985 ####[facility] [id number] [place], [address] Hemoglobin A1c percentageOrd ered By: Trevor Burton on 09-18-2024 HbA1c (Bld) [Mass fraction] 5.7 % <5.7 [facility] Comment on above: Normal < 5.7 % Predi abetic 5.7 - 6.4 % Diabetic >or= 6.5 % Please note range changes. LDL calc ser/plasOrdered By: Trevor Burton on 09-18-2024 Cholesterol in LDL [Mass/Vol] 51 mg/dL [facility] Comment on above: Zohssihpsp=287-967 m g/dL & Higher Ytdj=136 mg/dL or greaterFriedwald Equation for LDL-C Lipid Profileon 09-18-2024 CHOL:HDL 3.19 Normal [facility] Comment on above: Order Comment: Comme nts: NPO at [place] prior to lipid panel Performed By: #### L 9000.0810 #### [facility] [address] [place], [address] Cholesterol [Mass/Vol] 99 mg/dL Normal <=200 [facility] Comment on above: Order Comment: Comme nts: NPO at [place] prior to lipid panel Result Comment: Chol esterol level, Desirable <200 mg/dL Borderline high cholesterol 200-239 mg/dL High cholesterol >=240 mg/dL Recommendations of the NCEP Adult Treatment Panel for the following risk-cutoff thresholds for the [place] population. Performed By: #### L 9000.0810 #### [facility] [address] [place], [address] Cholesterol in HDL [Mass/Vol] 31 mg/dL Low [facility] Comment on above: Order [...] age. Performed By: #### L 9000.0810 #### [facility] [address] [place], [address] Cholesterol in LDL [Mass/Vol] 51 mg/dL Normal [facility] Comment on above: Order Comment: Comme nts: NPO at [place] prior to lipid panel Result Comment: Bord pxkvbj=420-820 mg/dL Higher Pzdg=992 mg/dL or greater Friedwald Equation for LDL-C Performed By: #### L 9000.0810 #### [facility] [address] [place], [address] Cholesterol in VLDL [Mass/Vol] 18 mg/dL Normal 5-40 [facility] Comment on above: Order Comment: Comme nts: NPO at [place] prior to lipid panel Performed By: #### L 9000.0810 #### [facility] [address] [place], [address] Triglyceride [Mass/Vol] 89 mg/dL Normal [facility] Comment on above: Order Comment: Comme nts: NPO at [place] prior to lipid panel Result Comment: The drugs N-Acetylcysteine and Metamizole may falsely depress this assay. Normal range: <150 mg/dL Borderline High: 150-199 mg/dL High: 200-499 mg/dL Very High: >500 mg/dL Performed By: #### L 9000.0810 #### [facility] [address] [place], [place], [id number] Prothrombin Time w/INRon INR Coag (PPP) [Relative time] 2.8 {INR} [facility] Comment on above: Performed By: #### L 500.4100, L503.7505, L300.8000, L500.4050, L100.0100, L503.0106, L506.0200, L501.5200, L501.4021, L300.3900, L501.2300, L501.9520 #### [facility] [address] [place], [place], [id number] PT Coag (PPP) [Time] 30.3 s High 11.7-14.9 [facility] Comment on above: Performed By: #### L 500.4100, L503.7505, L300.8000, L500.4050, L100.0100, L503.0106, L506.0200, L501.5200, L501.4021, L300.3900, L501.2300, L501.9520 #### [facility] [address] [place], [place], [id number] Screening total cholesterol/ high density lipoprotein (HDL) cholesterol ratioOrdered By: Trevor Burton on 09-18-2024 Cholesterol.total/Choles terol in HDL [Mass ratio] 3.19 {ratio} [facility] Serum or plasma cholesterol in HDL measurement (mass/volume)Ordered By: Trevor Burton on 09-18-2024 Cholesterol in HDL [Mass/Vol] 31 mg/dL Low >40 [facility] Comment on above: National Cholesterol Education Program (NCEP) guidelines:<40 mg/dL: Low HDL-cholesterol (major risk factor for CHD)>= 60 mg/dL: High HDL-cholesterol (negative risk factor for CHD)HDL-cholesterol is affected by a number of factors, e.g. smoking, exercise, hormones, sex and age. Serum or plasma cholesterol measurement (mass/volume)Ordered By: Trevor Burton on 09-18-2024 Cholesterol [Mass/Vol] 99 mg/dL <201 [facility] Comment on above: Cholesterol level, D esirable <200 mg/dLBorderline high cholesterol 200-239 mg/dLHigh cholesterol >=240 mg/dLRecommendations of the NCEP Adult Treatment Panel for the following risk-cutoff thresholds for the [place] population. TSH DL <= 0.005 mIU/L QnOrde red By: Trevor Burton on 09-18-2024 TSH Qn 1.410 uIU/mL 0.300-4.200 [facility] Thyroid Stim Hormone (TSH)on 09-18-2024 TSH 1.410 uIU/mL Normal 0.300-4.200 [facility] Comment on above: Order Comment: Comme nts: NPO at [place] prior to lipid panel Performed By: #### L 9000.0810 #### [facility] [address] [place], [place], [address] Triglycerides measurementOrd ered By: Trevor Burton on 09-18-2024 Triglyceride [Mass/Vol] 89 mg/dL <199 [facility] Comment on above: The drugs N-Acetylcy steine and Metamizole may falsely depress this assay. Normal range: <150 mg/dLBorderline High: 150-199 mg/dLHigh: 200-499 mg/dLVery High: >500 mg/dL Bilirubin, totalOrdered By: Olivia Walters on 09-17-2024 Bilirubin [Mass/Vol] 0.75 mg/dL 0.00-1.30 [facility] Brain without Contraston Brain without Contrast [facility] Imaging Services [address] [place], [place] [address] Brain without Contrast MR#: [id number] Acct: [id number] Name: TYLOR PEDERSEN Rep #: [id number] : 1940 M 83 From: Ernesto Weaver MD PCP: Dr. Shayne Zaidi MD Status: ADM MARICARMEN Study: Brain without Contrast Date of Exam: 09/17/24 Exam# [id number] Ordering Dr: Trevor Burton MD PROCEDURE: BRAIN [...] IMPRESSION: No acute intracranial abnormality. Reading Location: [id number] CC: Dr. Shayne Zaidi MD; Dr. Trevor Burton MD [place] Operator: Signed [facility] CBC W/Diff, Automatedon 09-07 Absolute Lymph 0.78 X10 3/uL Low 0.83-4.51 [facility] Comment on above: Performed By: #### L 500.4100, L503.7505, L300.8000, L500.4050, L100.0100, L503.0106, L506.0200, L501.5200, L501.4021, L300.3900, L501.2300, L501.9520 #### [facility] [address] [place], [place], [id number] Absolute Neut 14.3 X10 3/uL High 2.0-7.7 [facility] Comment on above: Performed By: #### L 500.4100, L503.7505, L300.8000, L500.4050, L100.0100, L503.0106, L506.0200, L501.5200, L501.4021, L300.3900, L501.2300, L501.9520 #### [facility] [address] [place], [place], [id number] Basophils/100 WBC (Bld) 0.4 % Normal 0-1 [facility] Comment on above: Performed By: #### L 500.4100, L503.7505, L300.8000, L500.4050, L100.0100, L503.0106, L506.0200, L501.5200, L501.4021, L300.3900, L501.2300, L501.9520 #### [facility] [address] [place], [place], [phone] ([phone] Eosinophils/100 WBC (Bld) 3.5 % Normal 0-5 [facility] Comment on above: Performed By: #### L 500.4100, L503.7505, L300.8000, L500.4050, L100.0100, L503.0106, L506.0200, L501.5200, L501.4021, L300.3900, L501.2300, L501.9520 #### [facility] [address], [place], [id number] Erythrocyte distribution width (RBC) [Ratio] 13.2 % Normal 11.6-14.6 [facility] Comment on above: Performed By: #### L 500.4100, L503.7505, L300.8000, L500.4050, L100.0100, L503.0106, L506.0200, L501.5200, L501.4021, L300.3900, L501.2300, L501.9520 #### [facility] [address] [facility] [place], [place], [phone] ([phone] Hematocrit (Bld) [Volume fraction] 42.9 % Normal 40-54 [facility] Comment on above: Performed By: #### L 500.4100, L503.7505, L300.8000, L500.4050, L100.0100, L503.0106, L506.0200, L501.5200, L501.4021, L300.3900, L501.2300, L501.9520 #### [facility] [address] [place], [address] Hemoglobin (Bld) [Mass/Vol] 13.5 g/dL Normal 13.0-16.5 [facility] Comment on above: Performed By: #### L 500.4100, L503.7505, L300.8000, L500.4050, L100.0100, L503.0106, L506.0200, L501.5200, L501.4021, L300.3900, L501.2300, L501.9520 #### [facility] [address] [place], [address] IG% 1.700 High 0.0-0.9 [facility] Comment on above: Result Comment: IG% - Immature Granulocytes (promyelocytes, myelocytes and metamyelocytes) > 1% indicates that a LEFT SHIFT is Present. Performed By: #### L 500.4100, L503.7505, L300.8000, L500.4050, L100.0100, L503.0106, L506.0200, L501.5200, L501.4021, L300.3900, L501.2300, L501.9520 #### [facility] [address] [place], [address] Lymphocytes/100 WBC (Bld) 4.6 % Low 19-41 [facility] Comment on above: Performed By: #### L 500.4100, L503.7505, L300.8000, L500.4050, L100.0100, L503.0106, L506.0200, L501.5200, L501.4021, L300.3900, L501.2300, L501.9520 #### [facility] [address] [place], [address] MCH (RBC) [Entitic mass] 30.0 pg Normal 27.0-32.0 [facility] Comment on above: Performed By: #### L 500.4100, L503.7505, L300.8000, L500.4050, L100.0100, L503.0106, L506.0200, L501.5200, L501.4021, L300.3900, L501.2300, L501.9520 #### [facility] [address] [place], [place], [phone] (319) MCHC (RBC) [Mass/Vol] 31.5 g/dL Low 32-36 [place] [facility] Comment on above: Performed By: #### L 500.4100, L503.7505, L300.8000, L500.4050, L100.0100, L503.0106, L506.0200, L501.5200, L501.4021, L300.3900, L501.2300, L501.9520 #### [facility] [address] [place], [place], [phone] (130) MCV (RBC) [Entitic vol] 95.3 fL High 80-94 [facility] Comment on above: Performed By: #### L 500.4100, L503.7505, L300.8000, L500.4050, L100.0100, L503.0106, L506.0200, L501.5200, L501.4021, L300.3900, L501.2300, L501.9520 #### [facility] [address] [place], [place], [id number] Monocytes/100 WBC (Bld) 4.8 % Normal 0-10 [facility] Comment on above: Performed By: #### L 500.4100, L503.7505, L300.8000, L500.4050, L100.0100, L503.0106, L506.0200, L501.5200, L501.4021, L300.3900, L501.2300, L501.9520 #### [facility] [address] [place], [address] Neutrophils/100 WBC (Bld) 85.0 % High 47-70 [facility] Comment on above: Performed By: #### L 500.4100, L503.7505, L300.8000, L500.4050, L100.0100, L503.0106, L506.0200, L501.5200, L501.4021, L300.3900, L501.2300, L501.9520 #### [facility] [address] [place], [address] Nucleated RBC (Bld) [#/Vol] 0 10*3/uL Normal 0-5 [facility] Comment on above: Performed By: #### L 500.4100, L503.7505, L300.8000, L500.4050, L100.0100, L503.0106, L506.0200, L501.5200, L501.4021, L300.3900, L501.2300, L501.9520 #### [facility] [address] [place], [address] Platelet mean volume (Bld) [Entitic vol] 9.1 fL Normal 6.2-12.0 [facility] Comment on above: Performed By: #### L 500.4100, L503.7505, L300.8000, L500.4050, L100.0100, L503.0106, L506.0200, L501.5200, L501.4021, L300.3900, L501.2300, L501.9520 #### [facility] [address] [place], [address] Platelets (Bld) [#/Vol] 177 10*3/uL Normal 150-450 [facility] Comment on above: Performed By: #### L 500.4100, L503.7505, L300.8000, L500.4050, L100.0100, L503.0106, L506.0200, L501.5200, L501.4021, L300.3900, L501.2300, L501.9520 #### [facility] [address] [place], [address] RBC (Bld) [#/Vol] 4.50 10*6/uL Low 4.6-6.2 [facility] Comment on above: Performed By: #### L 500.4100, L503.7505, L300.8000, L500.4050, L100.0100, L503.0106, L506.0200, L501.5200, L501.4021, L300.3900, L501.2300, L501.9520 #### [facility] [address] [place], [place], [phone] RDW SD 46.6 fl High 35.1-43.9 [facility] Comment on above: Performed By: #### L 500.4100, L503.7505, L300.8000, L500.4050, L100.0100, L503.0106, L506.0200, L501.5200, L501.4021, L300.3900, L501.2300, L501.9520 #### [facility] [address] [place], [place], [phone] WBC (Bld) [#/Vol] 16.9 10*3/uL High 4.4-11.0 [facility] Comment on above: Performed By: #### L 500.4100, L503.7505, L300.8000, L500.4050, L100.0100, L503.0106, L506.0200, L501.5200, L501.4021, L300.3900, L501.2300, L501.9520 #### [facility] [address] [place], [address] Tessa 09-17-2024 SHANNANN Telephone (FPWADS) TYLOR PEDERSEN ([id number]) 1940 M Date Time Provider Department 09/17/24 PADDY ZAIDI During your visit today, we recorded the following information about you: Ge Will LPN 09/17/2024 9:46 AM Signed Received visit summary from [facility]. Placed in provider's inbox for review. 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 Shayne Zaidi MD Status: ADM MARICARMEN Study: CTA Head AND Neck W/ Contrast Date of Exam: Exam# [id number] Ordering Dr: Trevor Burton MD PROCEDURE: CTA [...] RIGHT Vertebral: Patent LEFT Vertebral: Patent Anatomy: [place] of [place] anatomy is normal. Aneurysm or [...] neck. No dissection. No aneurysm. Reading Location: [facility] CC: Dr. Shayne Zaidi MD; Dr. Trevor Burton MD [place] Operator: Signed [facility] Comprehensive Metabolic Prof ilon 09-17-2024 Albumin [Mass/Vol] 3.6 g/dL Normal 3.4-4.8 [facility] Comment on above: Performed By: #### L 500.4100, L503.7505, L300.8000, L500.4050, L100.0100, L503.0106, L506.0200, L501.5200, L501.4021, L300.3900, L501.2300, L501.9520 #### [facility] [address] [place], [address] Albumin/Globulin [Mass ratio] 1.2 {ratio} Normal 0.9-2.4 [facility] Comment on above: Performed By: #### L 500.4100, L503.7505, L300.8000, L500.4050, L100.0100, L503.0106, L506.0200, L501.5200, L501.4021, L300.3900, L501.2300, L501.9520 #### [facility] [address] [place], [address] ALK PHOS 131 U/L High 40-129 [facility] Comment on above: Performed By: #### L 500.4100, L503.7505, L300.8000, L500.4050, L100.0100, L503.0106, L506.0200, L501.5200, L501.4021, L300.3900, L501.2300, L501.9520 #### [facility] [address] [place], [address] ALT [Catalytic activity/Vol] 26 U/L Normal <=46 [facility] Comment on above: Performed By: #### L 500.4100, L503.7505, L300.8000, L500.4050, L100.0100, L503.0106, L506.0200, L501.5200, L501.4021, L300.3900, L501.2300, L501.9520 #### [facility] [address] [place], [place], [id number] AST [Catalytic activity/Vol] 21 U/L Normal <=37 [facility] Comment on above: Performed By: #### L 500.4100, L503.7505, L300.8000, L500.4050, L100.0100, L503.0106, L506.0200, L501.5200, L501.4021, L300.3900, L501.2300, L501.9520 #### [facility] [address] [place], [address] Bilirubin [Mass/Vol] 0.75 mg/dL Normal 0.00-1.30 [facility] Comment on above: Performed By: #### L 500.4100, L503.7505, L300.8000, L500.4050, L100.0100, L503.0106, L506.0200, L501.5200, L501.4021, L300.3900, L501.2300, L501.9520 #### [facility] [address] [place], [address] BUN/CRE 31.7 RATIO High 10-20 [facility] Comment on above: Performed By: #### L 500.4100, L503.7505, L300.8000, L500.4050, L100.0100, L503.0106, L506.0200, L501.5200, L501.4021, L300.3900, L501.2300, L501.9520 #### [facility] [address] [place], [address] Calcium [Mass/Vol] 9.2 mg/dL Normal 7.6-11.0 [facility] Comment on above: Performed By: #### L 500.4100, L503.7505, L300.8000, L500.4050, L100.0100, L503.0106, L506.0200, L501.5200, L501.4021, L300.3900, L501.2300, L501.9520 #### [facility] [address] [place], [address] Chloride [Moles/Vol] 93 mmol/L Low 98-108 [facility] Comment on above: Performed By: #### L 500.4100, L503.7505, L300.8000, L500.4050, L100.0100, L503.0106, L506.0200, L501.5200, L501.4021, L300.3900, L501.2300, L501.9520 #### [facility] [address] [place], [address] CO2 [Moles/Vol] 33.0 mmol/L High 21.0-32.0 [facility] Comment on above: Performed By: #### L 500.4100, L503.7505, L300.8000, L500.4050, L100.0100, L503.0106, L506.0200, L501.5200, L501.4021, L300.3900, L501.2300, L501.9520 #### [facility] [address] [place], [address] Creatinine [Mass/Vol] 0.77 mg/dL Normal 0.70-1.20 [facility] Comment on above: Performed By: #### L 500.4100, L503.7505, L300.8000, L500.4050, L100.0100, L503.0106, L506.0200, L501.5200, L501.4021, L300.3900, L501.2300, L501.9520 #### [facility] [address] [place], [address] ECRCL 78.17 ml/min Normal 50-250 [facility] Comment on above: Performed By: #### L 500.4100, L503.7505, L300.8000, L500.4050, L100.0100, L503.0106, L506.0200, L501.5200, L501.4021, L300.3900, L501.2300, L501.9520 #### [facility] [address] [place], [address] GAP 11 Normal 5-15 [facility] Comment on above: Performed By: #### L 500.4100, L503.7505, L300.8000, L500.4050, L100.0100, L503.0106, L506.0200, L501.5200, L501.4021, L300.3900, L501.2300, L501.9520 #### [facility] [address] [place], [address] GFR/1.73 sq M.predicted among non-blacks MDRD (S/P/Bld) [Vol rate/Area] 88 mL/min/{1.73_m2} Normal >60 [facility] Comment on above: Result Comment: mL/m in/1.73m2 CKD-EPI Creatinine Equation (2020) Performed By: #### L 500.4100, L503.7505, L300.8000, L500.4050, L100.0100, L503.0106, L506.0200, L501.5200, L501.4021, L300.3900, L501.2300, L501.9520 #### [facility] [address] [place], [address] Globulin (S) [Mass/Vol] 3.1 g/dL Normal 2.2-4.2 [facility] Comment on above: Performed By: #### L 500.4100, L503.7505, L300.8000, L500.4050, L100.0100, L503.0106, L506.0200, L501.5200, L501.4021, L300.3900, L501.2300, L501.9520 #### [facility] [address] [place], [place], [id number] Glucose [Mass/Vol] 106 mg/dL High 70-99 [facility] Comment on above: Performed By: #### L 500.4100, L503.7505, L300.8000, L500.4050, L100.0100, L503.0106, L506.0200, L501.5200, L501.4021, L300.3900, L501.2300, L501.9520 #### [facility] [address] [place], [place], [id number] Potassium [Moles/Vol] 4.4 mmol/L Normal 3.3-5.1 [facility] Comment on above: Performed By: #### L 500.4100, L503.7505, L300.8000, L500.4050, L100.0100, L503.0106, L506.0200, L501.5200, L501.4021, L300.3900, L501.2300, L501.9520 #### [facility] [address] [place], [address] Sodium [Moles/Vol] 138 mmol/L Normal 133-145 [facility] Comment on above: Performed By: #### L 500.4100, L503.7505, L300.8000, L500.4050, L100.0100, L503.0106, L506.0200, L501.5200, L501.4021, L300.3900, L501.2300, L501.9520 #### [facility] [address] [place], [address] T PROT 6.7 g/dL Normal 5.9-8.4 [facility] Comment on above: Performed By: #### L 500.4100, L503.7505, L300.8000, L500.4050, L100.0100, L503.0106, L506.0200, L501.5200, L501.4021, L300.3900, L501.2300, L501.9520 #### [facility] [address] [place], [address] Urea nitrogen [Mass/Vol] 25 mg/dL High 4-19 [facility] Comment on above: Performed By: #### L 500.4100, L503.7505, L300.8000, L500.4050, L100.0100, L503.0106, L506.0200, L501.5200, L501.4021, L300.3900, L501.2300, L501.9520 #### [facility] [address] [place], [address] Electrocardiogram reportOrde red By: Dallas Muller on 09-17-2024 EKG study [facility] Cardiovascular Services [address] [place] [address] 12 Lead EKG 09/16/246 MR#: [id number] Acct: [id number] Name: TYLOR PEDERSEN Rep #:[id number] : 1940 83 From: Dallas Muller MD Attending Dr: Dr. Trevor Burton MD Status: ADM MARICARMEN Ordering Dr: Chris Cole DO Date: 12/01 Location: [facility] Sex: M C Admitted: 09/16/24 Test Reason [...] Abnormal ECG Confirmed by RENZO GRAHAM, D[place] ([id number]), medical transcription editor JESUS HERNANDEZ ([id number]) on 09/17/2024 1:15:29 PM Referred By: Confirmed By: DALLAS MULLER MD 09/17/24 1315 Date _ Dallas Muller MD CC: Dr. Shayne Zaidi MD; Dr. Trevor Burton MD; Dr. Chris Cole DO ~ Signed [facility] Work Phone: Laboratory - Chemistry and C hemistry - challengeOrdered By: Olivia Walters on 09-17-2024 AST [Catalytic activity/Vol] 21 U/L <38 [facility] MR/CON.PCM.NEon 09-17-2024 MR/CON.PCM.NE [facility] Medical Records Department [address] [place] [address] Consultation - Neurology 09/17/24 1212 MR#: [id number] Acct: [id number] Name: TYLOR PEDERSEN Rep #: [id number] : 1940 83 From: Trixie Jeronimo MD PCP: Dr. Shayne Zaidi MD Status:ADM MARICARMEN Location: [place] [address]1 Assessment and Plan: Neuro Assessment/Plan TYLOR PEDERSEN [...] INR trending to now re-presents to the [facility] ED on 09/16/2024 with history of reported [...] touch bilaterally -? Coordination: No dysmetria on eovxxa-wqpo-xhnllg, LLE ataxia -? 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 Normal [facility] Magnetic resonance imaging r eportOrdered By: Ernesto Weaver on 09-17-2024 Study report [facility] Imaging Services [address] [place] [address] Brain without Contrast MR#: [id number] Acct: [id number] Name: TYLOR PEDERSEN Rep #: [id number] : 1940 M 83 From: Frank Weaver MD PCP: Dr. Shayne Zaidi MD Status: ADM MARICARMEN Study:Brain without Contrast Date of Exam: 09/17/24 Exam# [id number] Ordering Dr: Archie Burton MD PROCEDURE: BRAIN [...] IMPRESSION: No acute intracranial abnormality. Reading Location: [id number] CC: Dr. Shayne Zaidi MD; Dr. Trevor Burton MD ~ [place] Operator: Signed [facility] Prothrombin Time w/INRon INR Coag (PPP) [Relative time] 3.4 {INR} Normal [facility] Comment on above: Performed By: #### L 500.4100, L503.7505, L300.8000, L500.4050, L100.0100, L503.0106, L506.0200, L501.5200, L501.4021, L300.3900, L501.2300, L501.9520 #### [facility] [address] [place], [place], [id number] PT Coag (PPP) [Time] 35.1 s High 11.7-14.9 [facility] Comment on above: Performed By: #### L 500.4100, L503.7505, L300.8000, L500.4050, L100.0100, L503.0106, L506.0200, L501.5200, L501.4021, L300.3900, L501.2300, L501.9520 #### [facility] [address] [place], [place], [id number] Serum globulin measurementOr dered By: Olivia Walters on 09-17-2024 Globulin (S) [Mass/Vol] 3.1 g/dL 2.2-4.2 [facility] Serum or plasma alanine castillo otransferase (ALT) measurementOrdered By: Olivia Romeo on 09-17-2024 ALT [Catalytic activity/Vol] 26 U/L <47 [facility] Serum or plasma albumin regan urement (mass/volume)Ordered By: Olivia Romeo on 09-17-2024 Albumin [Mass/Vol] 3.6 g/dL 3.4-4.8 [facility] Serum or plasma albumin/glob ulin mass ratioOrdered By: Olivia Walters on 09-17-2024 Albumin/Globulin [Mass ratio] 1.2 {ratio} 0.9-2.4 [facility] Serum or plasma alkaline effie sphatase measurementOrdered By: Olivia Walters on 09-17-2024 ALP [Catalytic activity/Vol] 131 U/L High 40-129 [facility] Thyroid Stim Hormone (TSH)on 09-17-2024 TSH 2.330 uIU/mL Normal 0.300-4.200 [facility] Comment on above: Performed By: #### L 500.4100, L503.7505, L300.8000, L500.4050, L100.0100, L503.0106, L506.0200, L501.5200, L501.4021, L300.3900, L501.2300, L501.9520 #### [facility] [address] [place], [address] Total proteinOrdered By: Virginia Walters on 09-17-2024 Protein [Mass/Vol] 6.7 g/dL 5.9-8.4 [facility] Troponin T HS 2 HRon 025 Trop T High Sen 13 ng/L Normal <=22 [facility] Comment on above: Performed By: #### L 500.4100, L503.7505, L300.8000, L500.4050, L100.0100, L503.0106, L506.0200, L501.5200, L501.4021, L300.3900, L501.2300, L501.9520 #### [facility] [address] [facility] [place], [address] Troponin T HS 4 HRon 025 Trop T High Sen 14 ng/L Normal <=22 [facility] Comment on above: Performed By: #### L 500.4100, L503.7505, L300.8000, L500.4050, L100.0100, L503.0106, L506.0200, L501.5200, L501.4021, L300.3900, L501.2300, L501.9520 #### [facility] [address] [place], [address] Troponin T.cardiac [Mass/vol ume] in Serum or Plasma by High sensitivity methodOrdered By: Olivia Walters on 09-17-2024 Troponin T.cardiac High sensitivity method [Mass/Vol] 14 ng/L <22 [facility] Troponin T.cardiac High sensitivity method [Mass/Vol] 13 ng/L <22 [facility] 12 Lead EKGon 09-16-2024 12 Lead EKG [facility] [address] [place] [address] 12 Lead EKG 09/16/246 MR#: [id number] Acct: [id number] Name: TYLOR PEDERSEN Rep #: [id number] : 1940 83 From: Dallas Muller MD Attending Dr: Dr. Trevor Burton MD Status: ADM MARICARMEN Ordering Dr: Chris Cole DO Date: 09/16/24 Location: [facility] Sex: M C Admitted: 09/16/24 Test Reason [...] Abnormal ECG Confirmed by DALLAS MULLER MD ([id number]), medical transcription editor JESUS HERNANDEZ ([id number]) on 09/17/2024 1:15:29 PM Referred By: Confirmed By: DALLAS MULLER MD 09/17/24 1315 Date Dallas Muller MD CC: Dr. Shayne Zaidi MD; Dr. Trevor Burton MD; Dr. Chris Cole DO Signed [facility] Absolute lymphocyte countOrd ered By: Remus Ungur on 09-16-2024 Lymphocytes Auto (Unsp spec) [#/Vol] 0.83 10*3/uL 0.83-4.51 [facility] Absolute neutrophil countOrd ered By: Remus Ungur on 09-16-2024 Neutrophils (Bld) [#/Vol] 15.3 10*3/uL High 2.0-7.7 [facility] Ammoniaon 09-16-2024 Ammonia (P) [Moles/Vol] 31.9 umol/L Normal 16-60 [facility] Comment on above: Performed By: #### L 500.4100, L503.7505, L300.8000, L500.4050, L100.0100, L503.0106, L506.0200, L501.5200, L501.4021, L300.3900, L501.2300, L501.9520 #### [facility] [address] [place], [place], [id number] Anion gap in Serum or Plasma Ordered By: Remus Ungtalia on 09-16-2024 Anion gap [Moles/Vol] 9 mmol/L 5-15 [facility] Assessment of wrist artery p atency prior to arterial punctureOrdered By: Olivia Walters on 09-16-2024 Arterial patency Wrist artery --pre arterial puncture Positive [facility] Automated lymphocyte count a s percentage of total leukocytesOrdered By: Remus Ungtalia on 09-16-2024 Lymphocytes/100 WBC Auto (Unsp spec) 4.6 % Low 19-41 [facility] BUN/creatinine ratioOrdered By: Remus Ungtalia on 09-16-2024 Urea nitrogen/Creatinine [Mass ratio] 29.2 mg/mg High 10 [facility] Basic Metabolic Profile (BMP )on 09-16-2024 BUN/CRE 29.2 RATIO High 11-26 [facility] Comment on above: Performed By: #### L 9000.0810 #### [facility] [address] [place], [address] Calcium [Mass/Vol] 9.3 mg/dL Normal 7.6-11.0 [facility] Comment on above: Performed By: #### L 9000.0810 #### [facility] [address] [place], [address] Chloride [Moles/Vol] 93 mmol/L Low 98-108 [facility] Comment on above: Performed By: #### L 9000.0810 #### [facility] [address] [place], [address] CO2 [Moles/Vol] 35.6 mmol/L High 21.0-32.0 [facility] Comment on above: Performed By: #### L 9000.0810 #### [facility] [address] [place], [address] Creatinine [Mass/Vol] 0.81 mg/dL Normal 0.70-1.20 [place] [facility] Comment on above: Performed By: #### L 9000.0810 #### [facility] [address] [place], [address] ECRCL 80.91 ml/min Normal 50-250 [facility] Comment on above: Performed By: #### L 9000.0810 #### [facility] [address] [place], [address] GAP 9 Normal 5-15 [facility] Comment on above: Performed By: #### L 9000.0810 #### [facility] [address] [place], [address] GFR/1.73 sq M.predicted among non-blacks MDRD (S/P/Bld) [Vol rate/Area] 87 mL/min/{1.73_m2} Normal >60 [facility] Comment on above: Result Comment: mL/m in/1.73m2 CKD-EPI Creatinine Equation (2020) Performed By: #### L 9000.0810 #### [facility] [address] [place], [address] Glucose [Mass/Vol] 112 mg/dL High 70-99 [facility] Comment on above: Performed By: #### L 9000.0810 #### [facility] [address] [place], [address] Potassium [Moles/Vol] 4.6 mmol/L Normal 3.3-5.1 [facility] Comment on above: Performed By: #### L 9000.0810 #### [facility] [address] [place], [address] Sodium [Moles/Vol] 138 mmol/L Normal 133-145 [facility] Comment on above: Performed By: #### L 9000.0810 #### [facility] [address] [place], [address] Urea nitrogen [Mass/Vol] 24 mg/dL High 4-19 [facility] Comment on above: Performed By: #### L 9000.0810 #### [facility] [address] [place], [address] Basophil percentageOrdered B y: Chris Cole on 09-16-2024 Basophils/100 WBC (Bld) 0.4 % 0-1 [facility] Bilirubin Test strip Ql (U)O rdered By: Chris Cloe on 09-16-2024 Bilirubin Ql (U) Negative Negative [facility] Blood Gases by CPSon 025 JOSEF TEST Positive Normal [facility] Comment on above: Performed By: #### L 500.4100, L503.7505, L300.8000, L500.4050, L100.0100, L503.0106, L506.0200, L501.5200, L501.4021, L300.3900, L501.2300, L501.9520 #### [facility] [address] [place], [address] Base excess Calc (Bld) [Moles/Vol] 16 mmol/L High -2 to +2 [facility] Comment on above: Performed By: #### L 500.4100, L503.7505, L300.8000, L500.4050, L100.0100, L503.0106, L506.0200, L501.5200, L501.4021, L300.3900, L501.2300, L501.9520 #### [facility] [address] [place], [place], [id number] Blood Gas Type ART Normal [facility] Comment on above: Performed By: #### L 500.4100, L503.7505, L300.8000, L500.4050, L100.0100, L503.0106, L506.0200, L501.5200, L501.4021, L300.3900, L501.2300, L501.9520 #### [facility] [address] [place], [place], [id number] CO2 [Moles/Vol] 42 mmol/L Normal [facility] Comment on above: Performed By: #### L 500.4100, L503.7505, L300.8000, L500.4050, L100.0100, L503.0106, L506.0200, L501.5200, L501.4021, L300.3900, L501.2300, L501.9520 #### [facility] [address] [place], [place], [id number] FI02 3.0 Normal [facility] Comment on above: Performed By: #### L 500.4100, L503.7505, L300.8000, L500.4050, L100.0100, L503.0106, L506.0200, L501.5200, L501.4021, L300.3900, L501.2300, L501.9520 #### [facility] [address] [facility] [place], [place], [id number] HCO3 (Bld) [Moles/Vol] 40.2 mmol/L High 22-26 [facility] Comment on above: Performed By: #### L 500.4100, L503.7505, L300.8000, L500.4050, L100.0100, L503.0106, L506.0200, L501.5200, L501.4021, L300.3900, L501.2300, L501.9520 #### [facility] [address] [place], [place], [id number] Mode Not entered [facility] Comment on above: Performed By: #### L 500.4100, L503.7505, L300.8000, L500.4050, L100.0100, L503.0106, L506.0200, L501.5200, L501.4021, L300.3900, L501.2300, L501.9520 #### [facility] [address] [place], [place], [id number] O2 Delivery Dev Cannula Normal [facility] Comment on above: Performed By: #### L 500.4100, L503.7505, L300.8000, L500.4050, L100.0100, L503.0106, L506.0200, L501.5200, L501.4021, L300.3900, L501.2300, L501.9520 #### [facility] [address] [place], [place], [id number] pCO2 63.2 mmHg High 35-45 [facility] Comment on above: Performed By: #### L 500.4100, L503.7505, L300.8000, L500.4050, L100.0100, L503.0106, L506.0200, L501.5200, L501.4021, L300.3900, L501.2300, L501.9520 #### [facility] [address] [place], [place], [address] pH (Bld) 7.41 [pH] Normal 7.35-7.45 [facility] Comment on above: Performed By: #### L 500.4100, L503.7505, L300.8000, L500.4050, L100.0100, L503.0106, L506.0200, L501.5200, L501.4021, L300.3900, L501.2300, L501.9520 #### [facility] [address] [place], [place], [address] PO2 120 mmHG High 75-100 [facility] Comment on above: Performed By: #### L 500.4100, L503.7505, L300.8000, L500.4050, L100.0100, L503.0106, L506.0200, L501.5200, L501.4021, L300.3900, L501.2300, L501.9520 #### [facility] [address] [place], [place], [id number] SITE R Radial Normal [facility] Comment on above: Performed By: #### L 500.4100, L503.7505, L300.8000, L500.4050, L100.0100, L503.0106, L506.0200, L501.5200, L501.4021, L300.3900, L501.2300, L501.9520 #### [facility] [address] [place], [place], [address] SO2 99 Normal 95-99 [facility] Comment on above: Performed By: #### L 500.4100, L503.7505, L300.8000, L500.4050, L100.0100, L503.0106, L506.0200, L501.5200, L501.4021, L300.3900, L501.2300, L501.9520 #### [facility] [address] [place], [place], [id number] Blood base excess determinat ionOrdered By: Olivia Walters on 09-16-2024 Base excess Calc (BldV) [Moles/Vol] 16 mmol/L High -2-2 [facility] Blood bicarbonate measuremen tOrdered By: Olivia Walters on 09-16-2024 HCO3 (Bld) [Moles/Vol] 40.2 mmol/L High 22-26 [facility] Brain/Head without Contrasto n 09-16-2024 Brain/Head without Contrast [facility] Imaging Services [address] [place], [place] [address] Brain/Head without Contrast MR#: [id number] Acct: [id number] Name: TYLOR PEDERSEN Rep #: [id number] : 1940 M 83 From: Melanie Devlin nd, MD PCP: Dr. Shayne Zaidi MD Status: [facility] ER Study: Brain/Head without Contrast Date of Exam: 09/07 Exam# [id number] Ordering Dr: Chris Cole DO EXAM: BRAIN/HEAD [...] IMPRESSION: No acute intracranial finding. Reading Location: [id number] CC: Dr. Shayne Zaidi MD; Dr. Chris Cole DO [place] Operator: Signed [facility] CBC W/Diff, Automatedon 08- 0-2024 Absolute Lymph 0.83 X10 3/uL Normal 0.83-4.51 [facility] Comment on above: Performed By: #### L 9000.0810 #### [facility] [address] [place], [address] Absolute Neut 15.3 X10 3/uL High 2.0-7.7 [facility] Comment on above: Performed By: #### L 9000.0810 #### [facility] [address] [place], [address] Basophils/100 WBC (Bld) 0.4 % Normal 0-1 [facility] Comment on above: Performed By: #### L 9000.0810 #### [facility] [address] [place], [address] Eosinophils/100 WBC (Bld) 3.7 % Normal 0-5 [facility] Comment on above: Performed By: #### L 9000.0810 #### [facility] [address] [place], [address] Erythrocyte distribution width (RBC) [Ratio] 13.2 % Normal 11.6-14.6 [facility] Comment on above: Performed By: #### L 9000.0810 #### [facility] [address] [place], [address] Hematocrit (Bld) [Volume fraction] 44.0 % Normal 40-54 [facility] Comment on above: Performed By: #### L 9000.0810 #### [facility] [address] [place], [address] Hemoglobin (Bld) [Mass/Vol] 13.9 g/dL Normal 13.0-16.5 [facility] Comment on above: Performed By: #### L 9000.0810 #### [facility] [address] [place], [address] IG% 1.800 High 0.0-0.9 [facility] Comment on above: Result Comment: IG% - Immature Granulocytes (promyelocytes, myelocytes and metamyelocytes) > 1% indicates that a LEFT SHIFT is Present. Performed By: #### L 9000.0810 #### [facility] [address] [place], [address] Lymphocytes/100 WBC (Bld) 4.6 % Low 19-41 [facility] Comment on above: Performed By: #### L 9000.0810 #### [facility] [address] [place], [address] MCH (RBC) [Entitic mass] 30.1 pg Normal 27.0-32.0 [facility] Comment on above: Performed By: #### L 9000.0810 #### [facility] [address] [place], [address] MCHC (RBC) [Mass/Vol] 31.6 g/dL Low 32-36 [facility] Comment on above: Performed By: #### L 9000.0810 #### [facility] [address] [place], [address] MCV (RBC) [Entitic vol] 95.2 fL High 80-94 [facility] Comment on above: Performed By: #### L 9000.0810 #### [facility] [address] [place], [address] Monocytes/100 WBC (Bld) 4.1 % Normal 0-10 [facility] Comment on above: Performed By: #### L 9000.0810 #### [facility] [address] [place], [address] Neutrophils/100 WBC (Bld) 85.4 % High 47-70 [facility] Comment on above: Performed By: #### L 9000.0810 #### [facility] [address] [place], [address] Nucleated RBC (Bld) [#/Vol] 0 10*3/uL Normal 0-5 [facility] Comment on above: Performed By: #### L 9000.0810 #### [facility] [address] [place], [address] Platelet mean volume (Bld) [Entitic vol] 9.1 fL Normal 6.2-12.0 [facility] Comment on above: Performed By: #### L 9000.0810 #### [facility] [address] [place], [address] Platelets (Bld) [#/Vol] 201 10*3/uL Normal 150-450 [facility] Comment on above: Performed By: #### L 9000.0810 #### [facility] [address] [place], [address] RBC (Bld) [#/Vol] 4.62 10*6/uL Normal 4.6-6.2 [facility] Comment on above: Performed By: #### L 9000.0810 #### [facility] [address] [place], [address] RDW SD 46.3 fl High 35.1-43.9 [facility] Comment on above: Performed By: #### L 9000.0810 #### [facility] [address] [place], [address] WBC (Bld) [#/Vol] 18.0 10*3/uL High 4.4-11.0 [facility] Comment on above: Performed By: #### L 9000.0810 #### [facility] [address] [place], [address] Carbon dioxide, total [Moles /volume] in Central venous bloodOrdered By: Chris Cole on 09-16-2024 CO2 [Moles/Vol] 35.6 mmol/L High 21.0-32.0 [facility] Chest 1 View (Portable)on Chest 1 View (Portable) [facility] Imaging Services [address] [place] [address] Chest 1 View (Portable) MR#: [id number] Acct: [id number] Name: TYLOR PEDERSEN Rep #: [id number] : 1940 M 83 From: Ishaan Braden MD PCP: Dr. Shayne Zaidi MD Status: ADM MARICARMEN Study: Chest 1 View (Portable) Date of Exam: 09/16/24 Exam# [id number] Ordering Dr: Chris Cole DO PROCEDURE: CHEST [...] (Portable) IMPRESSION: No Acute Findings. Reading Location: [facility] CC: Dr. Shayne Zaidi MD; Dr. Chris Cole DO [place] Operator: Signed [facility] Chloride assayOrdered By: Chani Cole on 09-16-2024 Chloride [Moles/Vol] 93 mmol/L Low 98-108 [facility] Emergency Department Summary on 09-16-2024 Emergency Department Summary [facility] Medical Records Department [address] [place] [address] Emergency Department Summary 09/16/24 MR#: [id number] Acct: [id number] Name: TYLOR PEDERSEN Rep #: [id number] : 1940 83 From: Chris Cole DO PCP: Dr. Shayne Zaidi MD Status:ADM MARICARMEN Location: [place] [address] HPI History of Present Illness Chief Complaint: [...] feeling anxious he really has no complaints. 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 Normal [facility] Eosinophil percentageOrdered By: Chris Cole on 09-16-2024 Eosinophils/100 WBC (Bld) 3.7 % 0-5 [facility] Erythrocyte distribution wid th ratioOrdered By: Chris Cole on 09-16-2024 Erythrocyte distribution width (RBC) [Ratio] 13.2 % 11.6-14.6 [facility] Erythrocyte distribution wid th standard deviationOrdered By: Remus Cole on 09-16-2024 Erythrocyte distribution width (RBC) [Ratio] 46.3 fl High 35.1-43.9 [facility] Glomerular filtration rate ( GFR) estimation/1.73 sq m using serum, plasma, or whole bOrdered By: Chris Cole on 09-16-2024 GFR/1.73 sq M.predicted among non-blacks MDRD (S/P/Bld) [Vol rate/Area] 87 mL/min/{1.73_m2} >60 [facility] Comment on above: mL/min/1.73m2 CKD-EP I Creatinine Equation (2020) H AND P Exam - [facility] 09-16-2024 H&P Exam - Hospitalist [facility] Medical Records Department [address] [place] [address] H P Exam - Hospitalist 09/16/242118 MR#: [id number] Acct: [id number] Name: TYLOR PEDERSEN Rep #: [id number] : 1940 83 From: Olivia Walters MD PCP: Dr. Shayne Zaidi MD Status:ADM MARICARMEN Location: [place] [address] HPI - General General Date of Admission: [...] INR trending to now re-presents to the [facility] ED on 09/16/2024 with history of reported [...] medication. In the ED patient administered MIVFs. 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 Normal [facility] Hematocrit Auto (Bld) [Volum e fraction]Ordered By: Chris Cole on 09-16-2024 Hematocrit (Bld) [Volume fraction] 44.0 % 40-54 [facility] Hemoglobin measurementOrdere d By: [facility] on 09-16-2024 Hemoglobin (Bld) [Mass/Vol] 13.9 g/dL 13.0-16.5 [facility] Hyaline casts LM.LPF (Urine sed) [#/Area]Ordered By: Chris Cole on 09-16-2024 Hyaline casts (Urine sed) [#/Area] 10 /[LPF] 0-5 [facility] Immature granulocytes/100 WB C Auto (Bld)Ordered By: Chris Cole on 09-16-2024 Immature granulocytes/100 WBC (Bld) 1.800 % High 0.0-0.9 [facility] Comment on above: IG% - Immature Granu locytes (promyelocytes, myelocytes and metamyelocytes) > 1% indicates that a LEFT SHIFT is Present. International normalized rat io (INR) calculationOrdered By: Chris Cole on 09-16-2024 INR Coag (Bld) [Relative time] 3.1 {INR} [facility] Ketones Test strip Ql (U)Ord ered By: [facility] Cole on 09-16-2024 Ketones Ql (U) Negative Negative [facility] L501.4021on 09-16-2024 Trop T High Sen 12 ng/L Normal <=22 [facility] Comment on above: Performed By: #### L 500.4100, L503.7505, L300.8000, L500.4050, L100.0100, L503.0106, L506.0200, L501.5200, L501.4021, L300.3900, L501.2300, L501.9520 #### [facility] [address] [place], [address] L509.7001on 09-16-2024 Procalcitonin 0.09 ng/mL Normal <=0.10 [facility] Comment on above: Order [...] L506.0200, L501.5200, L501.4021, L300.3900, L501.2300, L501.9520 #### [facility] [address] [place], [place], [id number] MCV (mean corpuscular volume ) determinationOrdered By: Chris Cole on 09-16-2024 MCV (RBC) [Entitic vol] 95.2 fL High 80-94 [facility] Magnesiumon 09-16-2024 Magnesium [Mass/Vol] 2.3 mg/dL High 1.5-2.2 [facility] Comment on above: Order Comment: Comme nts: may add to ED labs Performed By: #### L 500.4100, L503.7505, L300.8000, L500.4050, L100.0100, L503.0106, L506.0200, L501.5200, L501.4021, L300.3900, L501.2300, L501.9520 #### [facility] [address] [place], [address] Mean corpuscular hemoglobin (MCH) determinationOrdered By: Chris Cole on 09-16-2024 MCH (RBC) [Entitic mass] 30.1 pg 27.0-32.0 [facility] Mean corpuscular hemoglobin concentration (MCHC) determinationOrdered By: Chris Cole on 09-16-2024 MCHC (RBC) [Mass/Vol] 31.6 g/dL Low 32-36 [facility] Mean platelet volume determi nationOrdered By: Chris Cole on 09-16-2024 Platelet mean volume (Bld) [Entitic vol] 9.1 fL 6.2-12.0 [facility] Measurement, pHOrdered By: Yazmin Walters on 09-16-2024 pH (Unsp spec) 7.41 [pH] 7.35-7.45 [facility] Microscopic analysis of urin e for red blood cells (RBC)Ordered By: Chris Cole on 09-16-2024 Microscopic analysis of urine for red blood cells (RBC) 5-10 SEEN /hpf 0-5 [facility] Monocyte percentageOrdered B y: Chris Cole on 09-16-2024 Monocytes/100 WBC (Bld) 4.1 % 0-10 [facility] Mucus LM Ql (Urine sed)Order ed By: Chris Cole on 09-16-2024 Mucus Ql (Urine sed) 0 SEEN /hpf [facility] Neutrophil percentageOrdered By: Chris Cole on 09-16-2024 Neutrophils/100 WBC (Bld) 85.4 % High 47-70 [facility] Nitrite Test strip Ql (U)Ord ered By: Chris Cole on 09-16-2024 Nitrite Ql (U) Negative Negative [facility] No Panel InformationOrdered By: Olivia Walters on 09-16-2024 Blood Gas Sample Site R Radial [facility] Blood Gas Specimen Type ART [facility] Blood Gas Vent Mode Not entered [facility] Oxygen Delivery Device Cannula [facility] Nucleated red blood cell per centageOrdered By: Chris Cole on 09-16-2024 Nucleated RBC/100 WBC (Bld) [Ratio] 0 % 0-5 [facility] Platelet countOrdered By: Chani Cole on 09-16-2024 Platelets (Bld) [#/Vol] 201 10*3/uL 150-450 [facility] Potassium measurement (mass/ volume)Ordered By: Chris Cole on 09-16-2024 Potassium (Unsp spec) [Mass/Vol] 4.6 mmol/L 3.3-5.1 [facility] Procalcitonin [Mass/volume] in Serum or Plasma by ImmunoassayOrdered By: Olivia Walters on 09-16-2024 Procalcitonin IA [Mass/Vol] 0.09 ng/mL <0.11 [facility] Comment on above: Interpretation:<0.10 -0.25 ng/mL: Antibiotic [...] Protein Ql (U) 30 mg/dl High Negative [facility] Prothrombin Time w/INRon INR Coag (PPP) [Relative time] 3.1 {INR} Normal [facility] Comment on above: Performed By: #### L 501.9985 #### [facility] [address] [place], [place], [id number] (430) PT Coag (PPP) [Time] 32.4 s High 11.7-14.9 [facility] Comment on above: Performed By: #### L 501.9985 #### [facility] [address] [place], [address] Prothrombin timeOrdered By: Chris Cole on 09-16-2024 PT Coag (PPP) [Time] 32.4 s High 11.7-14.9 [facility] RBC Auto (Bld) [#/Vol]Ordere d By: Chris Cole on 09-16-2024 RBC (Bld) [#/Vol] 4.62 10*6/uL 4.6-6.2 [facility] Serum creatinine measurement (mass/volume)Ordered By: Chris Cole on 09-16-2024 Creatinine [Mass/Vol] 0.81 mg/dL 0.70-1.20 [facility] Serum glucose measurement (m ass/volume)Ordered By: Chris Cole on 09-16-2024 Glucose [Mass/Vol] 112 mg/dL High 70-99 [facility] Serum or plasma calcium regan urement (mass/volume)Ordered By: Chris Cole on 09-16-2024 Calcium [Mass/Vol] 9.3 mg/dL 7.6-11.0 [facility] Serum or plasma urea nitroge n measurement (mass/volume)Ordered By: Chris Cole on 09-16-2024 Urea nitrogen [Mass/Vol] 24 mg/dL High 4-19 [facility] Sodium levelOrdered By: Riri Cole on 09-16-2024 Sodium [Moles/Vol] 138 mmol/L 133-145 [facility] Squamous epithelial cells de tection in urine sediment by light microscopyOrdered By: Chris Cole on 09-16-2024 Epithelial cells.squamous LM Ql (Urine sed) 0-5 SEEN /hpf 0-5 [facility] Total carbon dioxide measure mentOrdered By: Olivia Walters on 09-16-2024 CO2 [Moles/Vol] 42 mmol/L [facility] Troponin T.cardiac [Mass/vol ume] in Serum or Plasma by High sensitivity methodOrdered By: Olivia Walters on 09-16-2024 Troponin T.cardiac High sensitivity method [Mass/Vol] 12 ng/L <22 [facility] Comment on above: Delta: 8 on 09/10/24 -0319 Urinalysis, Completeon 09-16 BACTERIA 1+ /hpf Normal None Seen [facility] Comment on above: Order Comment: CLEAN CATCH Performed By: #### L 400.0001 ####[facility] [address] [place], [address] EPI,SQUAMOUS 0-5 SEEN Normal 0-5 [facility] Comment on above: Order Comment: CLEAN CATCH Performed By: #### L 400.0001 ####[facility] [address] [place], [address] RBC 5-10 SEEN Normal 0-5 [facility] Comment on above: Order Comment: CLEAN CATCH Performed By: #### L 400.0001 ####[facility] [address] [place], [address] WBC 0-5 SEEN Normal 0-5 [facility] Comment on above: Order Comment: CLEAN CATCH Performed By: #### L 400.0001 ####[facility] [address] [place], [address] CAST,HYALINE 10-25 SEEN Normal 0-5 [facility] Comment on above: Order Comment: CLEAN CATCH Performed By: #### L 400.0001 ####[facility] [address] [place], [address] Mucus Ql (Urine sed) 0 SEEN Normal [facility] Comment on above: Order Comment: CLEAN CATCH Performed By: #### L 400.0001 ####[facility] [address] [place], [address] Urine clarityOrdered By: Fidelia Cole on 09-16-2024 Clarity (U) Clear Clear [facility] Urine color determinationOrd ered By: Chris Cole on 09-16-2024 Color (U) Yellow Yellow [facility] Urine glucose detectionOrder ed By: Chris Cole on 09-16-2024 Glucose Ql (U) Normal mg/dl Normal [facility] Urine leukocyte esterase det ection by dipstickOrdered By: Chris Cole on 09-16-2024 Leukocyte esterase Test strip Ql (U) 25 /ul High Negative [facility] Urine pHOrdered By: Chris powell on 09-16-2024 pH (U) 7.0 [pH] 5.0 - 8.0 [facility] Urine sediment bacteria coun t by microscopy (number/high power field)Ordered By: Chris Cole on 09-16-2024 Bacteria LM.HPF (Urine sed) [#/Area] 1 /[HPF] None Seen [facility] Urine specific gravity measu rementOrdered By: Chris Cole on 09-16-2024 Specific gravity (U) [Rel density] 1.010 1.002-1.030 [facility] Urine urobilinogen measureme ntOrdered By: Chris Cole on 09-16-2024 Urobilinogen Ql (U) 4 mg/dl High Normal [facility] Venous blood ammonia measure mentOrdered By: Olivia Walters on 09-16-2024 Ammonia (P) [Moles/Vol] 31.9 umol/L 16-60 [facility] White blood cell (WBC) count Ordered By: Chris Cole on 09-16-2024 WBC (Bld) [#/Vol] 18.0 10*3/uL High 4.4-11.0 [facility] White blood cell countOrdere d By: Chris Cole on 09-16-2024 White blood cell count 0-5 SEEN /hpf 0-5 [facility] Anion gap in Serum or Plasma Ordered By: Aayush Sibley on 09-12-2024 Anion gap [Moles/Vol] 11 mmol/L 5-15 [facility] BUN/creatinine ratioOrdered By: Aayush Sibley on 09-12-2024 Urea nitrogen/Creatinine [Mass ratio] 48.1 mg/mg High 10-20 [facility] Basic Metabolic Profile (BMP )on 09-12-2024 BUN/CRE 48.1 RATIO High 10- [facility] Comment on above: Performed By: #### L 500.4100, L503.7505, L300.8000, L500.4050, L100.0100, L503.0106, L506.0200, L501.5200, L501.4021, L300.3900, L501.2300, L501.9520 #### [facility] [address] [place], [place], [id number] Calcium [Mass/Vol] 8.9 mg/dL Normal 7.6-11.0 [facility] Comment on above: Performed By: #### L 500.4100, L503.7505, L300.8000, L500.4050, L100.0100, L503.0106, L506.0200, L501.5200, L501.4021, L300.3900, L501.2300, L501.9520 #### [facility] [address] [place], [address] Chloride [Moles/Vol] 96 mmol/L Low 98-108 [facility] Comment on above: Performed By: #### L 500.4100, L503.7505, L300.8000, L500.4050, L100.0100, L503.0106, L506.0200, L501.5200, L501.4021, L300.3900, L501.2300, L501.9520 #### [facility] [address] [place], [place], [phone] (258) CO2 [Moles/Vol] 34.3 mmol/L High 21.0-32.0 [facility] Comment on above: Performed By: #### L 500.4100, L503.7505, L300.8000, L500.4050, L100.0100, L503.0106, L506.0200, L501.5200, L501.4021, L300.3900, L501.2300, L501.9520 #### [facility] [address] [place], [address] Creatinine [Mass/Vol] 0.92 mg/dL Normal 0.70-1.20 [place] [facility] Comment on above: Performed By: #### L 500.4100, L503.7505, L300.8000, L500.4050, L100.0100, L503.0106, L506.0200, L501.5200, L501.4021, L300.3900, L501.2300, L501.9520 #### [facility] [address] [place], [place], [phone] (208) ECRCL 69.17 ml/min Normal 50-250 [facility] Comment on above: Performed By: #### L 500.4100, L503.7505, L300.8000, L500.4050, L100.0100, L503.0106, L506.0200, L501.5200, L501.4021, L300.3900, L501.2300, L501.9520 #### [facility] [address] [place], [place], [id number] GAP 11 Normal 5-15 [facility] Comment on above: Performed By: #### L 500.4100, L503.7505, L300.8000, L500.4050, L100.0100, L503.0106, L506.0200, L501.5200, L501.4021, L300.3900, L501.2300, L501.9520 #### [facility] [address] [place], [address] GFR/1.73 sq M.predicted among non-blacks MDRD (S/P/Bld) [Vol rate/Area] 82 mL/min/{1.73_m2} Normal >60 [facility] Comment on above: Result Comment: mL/m in/1.73m2 CKD-EPI Creatinine Equation (2020) Performed By: #### L 500.4100, L503.7505, L300.8000, L500.4050, L100.0100, L503.0106, L506.0200, L501.5200, L501.4021, L300.3900, L501.2300, L501.9520 #### [facility] [address] [place], [address] Glucose [Mass/Vol] 120 mg/dL High 70-99 [facility] Comment on above: Performed By: #### L 500.4100, L503.7505, L300.8000, L500.4050, L100.0100, L503.0106, L506.0200, L501.5200, L501.4021, L300.3900, L501.2300, L501.9520 #### [facility] [address] [place], [address] Potassium [Moles/Vol] 4.0 mmol/L Normal 3.3-5.1 [place] [facility] Comment on above: Result Comment: Hemo lysis present, Results??could be affected. ?? Performed By: #### L 500.4100, L503.7505, L300.8000, L500.4050, L100.0100, L503.0106, L506.0200, L501.5200, L501.4021, L300.3900, L501.2300, L501.9520 #### [facility] [address] [place], [address] Sodium [Moles/Vol] 142 mmol/L Normal 133-145 [facility] Comment on above: Performed By: #### L 500.4100, L503.7505, L300.8000, L500.4050, L100.0100, L503.0106, L506.0200, L501.5200, L501.4021, L300.3900, L501.2300, L501.9520 #### [facility] [address] [place], [place], [phone] (351) Urea nitrogen [Mass/Vol] 44 mg/dL High 4-19 [facility] Comment on above: Performed By: #### L 500.4100, L503.7505, L300.8000, L500.4050, L100.0100, L503.0106, L506.0200, L501.5200, L501.4021, L300.3900, L501.2300, L501.9520 #### [facility] [address] [place], [address] Carbon dioxide, total [Moles /volume] in Central venous bloodOrdered By: Aayush Sibley on 09-12-2024 CO2 [Moles/Vol] 34.3 mmol/L High 21.0-32.0 [facility] Chest PA and Lateralon 09-12 Chest PA and Lateral [facility] Imaging Services [address] [place] [address] Chest PA and Lateral MR#: [id number] Acct: [id number] Name: TYLOR PEDERSEN Rep #: [id number] : 1940 M 83 From: Jad Hamlin MD PCP: Dr. Shayne Zaidi MD Status: ADM IN Study: Chest PA and Lateral Date of Exam: 09/12/24 Exam# [id number] Ordering Dr: Aayush Sibley DO PROCEDURE: CHEST [...] seen on recent comparison CT Reading Location: [place] [address] CC: Dr. Shayne Zaidi MD; Dr. Aayush Sibley DO [place] Operator: Signed Normal [facility] Chloride assayOrdered By: Velia Sibley on 09-12-2024 Chloride [Moles/Vol] 96 mmol/L Low 98-108 [facility] Discharge Instructionon 08 Discharge Instruction [facility] Medical Records Department [address] [place] [address] Instructions for Home/Discharge Instructions 09/12/24 1439 MR#: [id number] Acct: [id number] Name: TYLOR PEDERSEN Rep #: [id number] : 1940 83 From: Aayush Sibley DO [...] Burden; Martínez Mclean; Omar Hidalgo; Tylor Rose GAS APPLIANCE REPAIRER; Jenny Yancey PA; Moses Alexis Discharge Orders/Prescriptions [...] rechecked) Jenny Yancey PA [Med Staff - [facility]] - Within 2 Weeks (Call [...] MD; JI Valencia; JI Burgos Signed Normal [facility] Glomerular filtration rate ( GFR) estimation/1.73 sq m using serum, plasma, or whole bOrdered By: Aayush Sibley on 09-12-2024 GFR/1.73 sq M.predicted among non-blacks MDRD (S/P/Bld) [Vol rate/Area] 82 mL/min/{1.73_m2} >60 [facility] Comment on above: mL/min/1.73m2 CKD-EP I Creatinine Equation (2020) International normalized rat io (INR) calculationOrdered By: Aayush Sibley on 09-12-2024 INR Coag (Bld) [Relative time] 1.4 {INR} [facility] Potassium measurement (mass/ volume)Ordered By: Aayush Sibley on 09-12-2024 Potassium (Unsp spec) [Mass/Vol] 4.0 mmol/L 3.3-5.1 [facility] Comment on above: Hemolysis present, R esults could be affected. Prothrombin Time w/INRon INR Coag (PPP) [Relative time] 1.4 {INR} Normal [facility] Comment on above: Performed By: #### L 500.4100, L503.7505, L300.8000, L500.4050, L100.0100, L503.0106, L506.0200, L501.5200, L501.4021, L300.3900, L501.2300, L501.9520 #### [facility] [address] [place], [place], [id number] PT Coag (PPP) [Time] 17.8 s High 11.7-14.9 [facility] Comment on above: Performed By: #### L 500.4100, L503.7505, L300.8000, L500.4050, L100.0100, L503.0106, L506.0200, L501.5200, L501.4021, L300.3900, L501.2300, L501.9520 #### [facility] [address] [place], [place], [id number] Prothrombin timeOrdered By: Aayush Sibley on 09-12-2024 PT Coag (PPP) [Time] 17.8 s High 11.7-14.9 [facility] Serum creatinine measurement (mass/volume)Ordered By: Aayush Sibley on 09-12-2024 Creatinine [Mass/Vol] 0.92 mg/dL 0.70-1.20 [facility] Serum glucose measurement (m ass/volume)Ordered By: Aayush Sibley on 09-12-2024 Glucose [Mass/Vol] 120 mg/dL High 70-99 [facility] Serum or plasma calcium regan urement (mass/volume)Ordered By: Aayush Sibley on 09-12-2024 Calcium [Mass/Vol] 8.9 mg/dL 7.6-11.0 [facility] Serum or plasma urea nitroge n measurement (mass/volume)Ordered By: Aayush Sibley on 09-12-2024 Urea nitrogen [Mass/Vol] 44 mg/dL High 4-19 [facility] Sodium levelOrdered By: Aayush Sibley on 09-12-2024 Sodium [Moles/Vol] 142 mmol/L 133-145 [facility] Basic Metabolic Profile (BMP )on 09-11-2024 BUN/CRE 43.1 RATIO High 10-20 [facility] Comment on above: Performed By: #### L 500.4100, L503.7505, L300.8000, L500.4050, L100.0100, L503.0106, L506.0200, L501.5200, L501.4021, L300.3900, L501.2300, L501.9520 #### [facility] [address] [place], [place], [id number] Calcium [Mass/Vol] 9.0 mg/dL Normal 7.6-11.0 [facility] Comment on above: Performed By: #### L 500.4100, L503.7505, L300.8000, L500.4050, L100.0100, L503.0106, L506.0200, L501.5200, L501.4021, L300.3900, L501.2300, L501.9520 #### [facility] [address] [place], [place], [phone] Chloride [Moles/Vol] 96 mmol/L Low 98-108 [facility] Comment on above: Performed By: #### L 500.4100, L503.7505, L300.8000, L500.4050, L100.0100, L503.0106, L506.0200, L501.5200, L501.4021, L300.3900, L501.2300, L501.9520 #### [facility] [address] [place], [place], [phone] CO2 [Moles/Vol] 26.8 mmol/L Normal 21.0-32.0 [facility] Comment on above: Performed By: #### L 500.4100, L503.7505, L300.8000, L500.4050, L100.0100, L503.0106, L506.0200, L501.5200, L501.4021, L300.3900, L501.2300, L501.9520 #### [facility] [address] [place], [place], [phone] Creatinine [Mass/Vol] 0.88 mg/dL Normal 0.70-1.20 [place] [facility] Comment on above: Performed By: #### L 500.4100, L503.7505, L300.8000, L500.4050, L100.0100, L503.0106, L506.0200, L501.5200, L501.4021, L300.3900, L501.2300, L501.9520 #### [facility] [address] [place], [place], [phone] ECRCL 72.70 ml/min Normal 50-250 [facility] Comment on above: Performed By: #### L 500.4100, L503.7505, L300.8000, L500.4050, L100.0100, L503.0106, L506.0200, L501.5200, L501.4021, L300.3900, L501.2300, L501.9520 #### [facility] [address] [place], [place], [id number] GAP 15 Normal 5-15 [facility] Comment on above: Performed By: #### L 500.4100, L503.7505, L300.8000, L500.4050, L100.0100, L503.0106, L506.0200, L501.5200, L501.4021, L300.3900, L501.2300, L501.9520 #### [facility] [address] [place], [address] GFR/1.73 sq M.predicted among non-blacks MDRD (S/P/Bld) [Vol rate/Area] 85 mL/min/{1.73_m2} Normal >60 [facility] Comment on above: Result Comment: mL/m in/1.73m2 CKD-EPI Creatinine Equation (2020) Performed By: #### L 500.4100, L503.7505, L300.8000, L500.4050, L100.0100, L503.0106, L506.0200, L501.5200, L501.4021, L300.3900, L501.2300, L501.9520 #### [facility] [address] [place], [address] Glucose [Mass/Vol] 132 mg/dL High 70-99 [facility] Comment on above: Performed By: #### L 500.4100, L503.7505, L300.8000, L500.4050, L100.0100, L503.0106, L506.0200, L501.5200, L501.4021, L300.3900, L501.2300, L501.9520 #### [facility] [address] [place], [address] Potassium [Moles/Vol] 3.9 mmol/L Normal 3.3-5.1 [place] [facility] Comment on above: Result Comment: Hemo lysis present, Results??could be affected. ?? Performed By: #### L 500.4100, L503.7505, L300.8000, L500.4050, L100.0100, L503.0106, L506.0200, L501.5200, L501.4021, L300.3900, L501.2300, L501.9520 #### [facility] [address] [place], [address] Sodium [Moles/Vol] 138 mmol/L Normal 133-145 [facility] Comment on above: Performed By: #### L 500.4100, L503.7505, L300.8000, L500.4050, L100.0100, L503.0106, L506.0200, L501.5200, L501.4021, L300.3900, L501.2300, L501.9520 #### [facility] [address] [place], [place], [phone] Urea nitrogen [Mass/Vol] 38 mg/dL High 4-19 [facility] Comment on above: Performed By: #### L 500.4100, L503.7505, L300.8000, L500.4050, L100.0100, L503.0106, L506.0200, L501.5200, L501.4021, L300.3900, L501.2300, L501.9520 #### [facility] [address] [place], [place], [id number] [facility] Telephone (FPWAPATY) TYLOR PEDERSEN ([id number]) 1940 M Date Time Provider Department 09/11/24 [facility] During your visit today, we recorded the following information about you: Cassandra Ann LPN 09/11/2024 1:31 PM Signed Received 09/11/2024 from [facility]. Placed in provider's inbox for review. Route to [place] for scanning. 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 Telephone (FPWADS) TYLOR PEDERSEN ([id number]) 1940 M Date Time Provider Department 09/11/24 PADDY ZAIDI [facility] During your visit today, we recorded the following information about you: Cassandra Ann LPN 09/11/2024 1:52 PM Signed Received 09/11/2024 from [facility]. Placed in provider's inbox for review. 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 A CXR at [facility] showed right hemidiaphragm elevation and left [...] Result: 5= enters airways/contacts vocal folds/not ejected [place] [address] Thick Liquid via small single sip: cup: Result: 2= enter airway/above vocal folds/ejected [place] [address] Thick Liquid via small single sip: cup Trial 2: Result: 3= enters airways/above vocal folds/not ejected [address] Thick Liquid via small single sip: cup [...] Cookie: Result: 1= does not enter airway [address] Thick Liquid via small single sip: cup [...] head i (more content not included)... Normal [facility] 12 Lead EKGon 09-10-2024 12 Lead EKG [facility] Cardiovascular Services [address] [place] [address] 12 Lead EKG 09/10/24 0122 MR#: [id number] Acct: [id number] Name: TYLOR PEDERSEN Rep #: [id number] : 1940 83 From: Dallas Muller MD Attending Dr: Dr. Aayush Sibley DO Status: A DM IN Ordering Dr: Kristopher Valencia DO Date: 09/10/24 Location: [facility] Sex: M C Admitted: 09/10/24 Test Reason [...] found Confirmed by RENZO GRAHAM, DALLAS ([id number]), medical transcription editor JESUS HERNANDEZ ([id number]) on 09/10/2024 8:29:31 AM Referred By: DR Valencia Confirmed By: DALLAS MULLER MD 09/10/24828 Date Dallas Muller MD CC: Dr. Kristopher Valencia DO; Dr. Shayne Zaidi MD; Dr. Aayush Sibley DO Signed Normal [facility] Absolute lymphocyte countOrd ered By: Kristopher Diamond on 09-10-2024 Lymphocytes Auto (Unsp spec) [#/Vol] 0.24 10*3/uL Low 0.83-4.51 [facility] Absolute neutrophil countOrd ered By: Kristopher Diamond on 09-10-2024 Neutrophils (Bld) [#/Vol] 10.2 10*3/uL High 2.0-7.7 [facility] Automated lymphocyte count a s percentage of total leukocytesOrdered By: Kristopher Diamond on 09-10-2024 Lymphocytes/100 WBC Auto (Unsp spec) 2.2 % Low 19-41 [facility] Basophil percentageOrdered B y: Kristopher Diamond on 09-10-2024 Basophils/100 WBC (Bld) 0.2 % 0-1 [facility] Bilirubin Test strip Ql (U)O rdered By: Kristopher Diamond on 09-10-2024 Bilirubin Ql (U) Negative Negative [facility] Bilirubin, totalOrdered By: Kristopher Diamond on 09-10-2024 Bilirubin [Mass/Vol] 0.73 mg/dL 0.00-1.30 [facility] CBC W/Diff, Automatedon 08-0 4-2024 Absolute Lymph 0.24 X10 3/uL Low 0.83-4.51 [facility] Comment on above: Performed By: #### L 500.4100, L503.7505, L300.8000, L500.4050, L100.0100, L503.0106, L506.0200, L501.5200, L501.4021, L300.3900, L501.2300, L501.9520 #### [facility] [address] [place], [address] Absolute Neut 10.2 X10 3/uL High 2.0-7.7 [facility] Comment on above: Performed By: #### L 500.4100, L503.7505, L300.8000, L500.4050, L100.0100, L503.0106, L506.0200, L501.5200, L501.4021, L300.3900, L501.2300, L501.9520 #### [facility] [address] [place], [address] (014) Basophils/100 WBC (Bld) 0.2 % Normal 0-1 [facility] Comment on above: Performed By: #### L 500.4100, L503.7505, L300.8000, L500.4050, L100.0100, L503.0106, L506.0200, L501.5200, L501.4021, L300.3900, L501.2300, L501.9520 #### [facility] [address] [place], [place], [phone] (647) Eosinophils/100 WBC (Bld) 0.0 % Normal 0-5 [facility] Comment on above: Performed By: #### L 500.4100, L503.7505, L300.8000, L500.4050, L100.0100, L503.0106, L506.0200, L501.5200, L501.4021, L300.3900, L501.2300, L501.9520 #### [facility] [address] [place], [address] Erythrocyte distribution width (RBC) [Ratio] 13.2 % Normal 11.6-14.6 [facility] Comment on above: Performed By: #### L 500.4100, L503.7505, L300.8000, L500.4050, L100.0100, L503.0106, L506.0200, L501.5200, L501.4021, L300.3900, L501.2300, L501.9520 #### [facility] [address] [place], [address] Hematocrit (Bld) [Volume fraction] 44.1 % Normal 40-54 [facility] Comment on above: Performed By: #### L 500.4100, L503.7505, L300.8000, L500.4050, L100.0100, L503.0106, L506.0200, L501.5200, L501.4021, L300.3900, L501.2300, L501.9520 #### [facility] [address] [place], [address] Hemoglobin (Bld) [Mass/Vol] 14.3 g/dL Normal 13.0-16.5 [facility] Comment on above: Performed By: #### L 500.4100, L503.7505, L300.8000, L500.4050, L100.0100, L503.0106, L506.0200, L501.5200, L501.4021, L300.3900, L501.2300, L501.9520 #### [facility] [address] [place], [address] IG% 0.300 Normal 0.0-0.9 [facility] Comment on above: Result Comment: IG% - Immature Granulocytes (promyelocytes, myelocytes and metamyelocytes) > 1% indicates that a LEFT SHIFT is Present. Performed By: #### L 500.4100, L503.7505, L300.8000, L500.4050, L100.0100, L503.0106, L506.0200, L501.5200, L501.4021, L300.3900, L501.2300, L501.9520 #### [facility] [address] [place], [address] Lymphocytes/100 WBC (Bld) 2.2 % Low 19-41 [facility] Comment on above: Performed By: #### L 500.4100, L503.7505, L300.8000, L500.4050, L100.0100, L503.0106, L506.0200, L501.5200, L501.4021, L300.3900, L501.2300, L501.9520 #### [facility] [address] [place], [address] MCH (RBC) [Entitic mass] 31.0 pg Normal 27.0-32.0 [facility] Comment on above: Performed By: #### L 500.4100, L503.7505, L300.8000, L500.4050, L100.0100, L503.0106, L506.0200, L501.5200, L501.4021, L300.3900, L501.2300, L501.9520 #### [facility] [address] [place], [address] MCHC (RBC) [Mass/Vol] 32.4 g/dL Normal 32-36 [facility] Comment on above: Performed By: #### L 500.4100, L503.7505, L300.8000, L500.4050, L100.0100, L503.0106, L506.0200, L501.5200, L501.4021, L300.3900, L501.2300, L501.9520 #### [facility] [address] [place], [address] MCV (RBC) [Entitic vol] 95.7 fL High 80-94 [facility] Comment on above: Performed By: #### L 500.4100, L503.7505, L300.8000, L500.4050, L100.0100, L503.0106, L506.0200, L501.5200, L501.4021, L300.3900, L501.2300, L501.9520 #### [facility] [address] [place], [address] Monocytes/100 WBC (Bld) 2.8 % Normal 0-10 [facility] Comment on above: Performed By: #### L 500.4100, L503.7505, L300.8000, L500.4050, L100.0100, L503.0106, L506.0200, L501.5200, L501.4021, L300.3900, L501.2300, L501.9520 #### [facility] [address] [place], [address] Neutrophils/100 WBC (Bld) 94.5 % High 47-70 [facility] Comment on above: Performed By: #### L 500.4100, L503.7505, L300.8000, L500.4050, L100.0100, L503.0106, L506.0200, L501.5200, L501.4021, L300.3900, L501.2300, L501.9520 #### [facility] [address] [place], [address] Nucleated RBC (Bld) [#/Vol] 0 10*3/uL Normal 0-5 [facility] Comment on above: Performed By: #### L 500.4100, L503.7505, L300.8000, L500.4050, L100.0100, L503.0106, L506.0200, L501.5200, L501.4021, L300.3900, L501.2300, L501.9520 #### [facility] [address] [place], [address] Platelet mean volume (Bld) [Entitic vol] 9.2 fL Normal 6.2-12.0 [facility] Comment on above: Performed By: #### L 500.4100, L503.7505, L300.8000, L500.4050, L100.0100, L503.0106, L506.0200, L501.5200, L501.4021, L300.3900, L501.2300, L501.9520 #### [facility] [address] [place], [address] Platelets (Bld) [#/Vol] 224 10*3/uL Normal 150-450 [facility] Comment on above: Performed By: #### L 500.4100, L503.7505, L300.8000, L500.4050, L100.0100, L503.0106, L506.0200, L501.5200, L501.4021, L300.3900, L501.2300, L501.9520 #### [facility] [address] [place], [address] RBC (Bld) [#/Vol] 4.61 10*6/uL Normal 4.6-6.2 [facility] Comment on above: Performed By: #### L 500.4100, L503.7505, L300.8000, L500.4050, L100.0100, L503.0106, L506.0200, L501.5200, L501.4021, L300.3900, L501.2300, L501.9520 #### [facility] [address] [place], [address] RDW SD 47.6 fl High 35.1-43.9 [facility] Comment on above: Performed By: #### L 500.4100, L503.7505, L300.8000, L500.4050, L100.0100, L503.0106, L506.0200, L501.5200, L501.4021, L300.3900, L501.2300, L501.9520 #### [facility] [address] [place], [address] WBC (Bld) [#/Vol] 10.8 10*3/uL Normal 4.4-11.0 [facility] Comment on above: Performed By: #### L 500.4100, L503.7505, L300.8000, L500.4050, L100.0100, L503.0106, L506.0200, L501.5200, L501.4021, L300.3900, L501.2300, L501.9520 #### [facility] [address] [facility], [address] CO2 (BldV) [Moles/Vol]Ordere d By: Kristopher Diamond on 09-10-2024 CO2 [Moles/Vol] 37 mmol/L High 23-33 [facility] Calculated very low density lipoprotein (VLDL) cholesterol measurementOrdered By: Kristopher Diamond on 09-10-2024 Calculated very low density lipoprotein (VLDL) cholesterol measurement 8 mg/dL 5-40 [facility] Chest without Contraston Chest without Contrast [facility] Imaging Services [address] [place], [place] [address] Chest without Contrast MR#: [id number] Acct: [id number] Name: TYLOR PEDERSEN Rep #: [id number] : 1940 M 83 From: Jad Hamlin MD PCP: Dr. Shayne Zaidi MD Status: ADM IN Study: Chest without Contrast Date of Exam: 09/10/24 Exam# [id number] Ordering Dr: Kristopher Valencia DO PROCEDURE: CHEST [...] disease, correlate for aspiration pneumonia. Reading Location: [place] [address] CC: Dr. Kristopher Valencia DO; Dr. Shayne Zaidi MD [place] Operator: Signed Normal [facility] Comprehensive Metabolic Prof ilon 09-10-2024 Albumin [Mass/Vol] 3.7 g/dL Normal 3.4-4.8 [facility] Comment on above: Performed By: #### L 500.4100, L503.7505, L300.8000, L500.4050, L100.0100, L503.0106, L506.0200, L501.5200, L501.4021, L300.3900, L501.2300, L501.9520 #### [facility] [address] [place], [address] Albumin/Globulin [Mass ratio] 0.9 {ratio} Normal 0.9-2.4 [facility] Comment on above: Performed By: #### L 500.4100, L503.7505, L300.8000, L500.4050, L100.0100, L503.0106, L506.0200, L501.5200, L501.4021, L300.3900, L501.2300, L501.9520 #### [facility] [address] [place], [place], [phone] ([phone] ALK PHOS 199 U/L High 40-129 [facility] Comment on above: Performed By: #### L 500.4100, L503.7505, L300.8000, L500.4050, L100.0100, L503.0106, L506.0200, L501.5200, L501.4021, L300.3900, L501.2300, L501.9520 #### [facility] [address] [place], [place], [id number] ALT [Catalytic activity/Vol] 34 U/L Normal <=46 [facility] Comment on above: Performed By: #### L 500.4100, L503.7505, L300.8000, L500.4050, L100.0100, L503.0106, L506.0200, L501.5200, L501.4021, L300.3900, L501.2300, L501.9520 #### [facility] [address] [place], [place], [phone] AST [Catalytic activity/Vol] 41 U/L High <=37 [facility] Comment on above: Performed By: #### L 500.4100, L503.7505, L300.8000, L500.4050, L100.0100, L503.0106, L506.0200, L501.5200, L501.4021, L300.3900, L501.2300, L501.9520 #### [facility] [address] [place], [address] Bilirubin [Mass/Vol] 0.73 mg/dL Normal 0.00-1.30 [facility] Comment on above: Performed By: #### L 500.4100, L503.7505, L300.8000, L500.4050, L100.0100, L503.0106, L506.0200, L501.5200, L501.4021, L300.3900, L501.2300, L501.9520 #### [facility] [address] [place], [address] BUN/CRE 27.5 RATIO High 10-20 [facility] Comment on above: Performed By: #### L 500.4100, L503.7505, L300.8000, L500.4050, L100.0100, L503.0106, L506.0200, L501.5200, L501.4021, L300.3900, L501.2300, L501.9520 #### [facility] [address] [place], [address] Calcium [Mass/Vol] 8.9 mg/dL Normal 7.6-11.0 [facility] Comment on above: Performed By: #### L 500.4100, L503.7505, L300.8000, L500.4050, L100.0100, L503.0106, L506.0200, L501.5200, L501.4021, L300.3900, L501.2300, L501.9520 #### [facility] [address] [place], [address] Chloride [Moles/Vol] 98 mmol/L Normal 98-108 [facility] Comment on above: Performed By: #### L 500.4100, L503.7505, L300.8000, L500.4050, L100.0100, L503.0106, L506.0200, L501.5200, L501.4021, L300.3900, L501.2300, L501.9520 #### [facility] [address] [place], [address] CO2 [Moles/Vol] 25.7 mmol/L Normal 21.0-32.0 [facility] Comment on above: Performed By: #### L 500.4100, L503.7505, L300.8000, L500.4050, L100.0100, L503.0106, L506.0200, L501.5200, L501.4021, L300.3900, L501.2300, L501.9520 #### [facility] [address] [place], [place], [id number] Creatinine [Mass/Vol] 0.75 mg/dL Normal 0.70-1.20 [facility] Comment on above: Performed By: #### L 500.4100, L503.7505, L300.8000, L500.4050, L100.0100, L503.0106, L506.0200, L501.5200, L501.4021, L300.3900, L501.2300, L501.9520 #### [facility] [address] [place], [place], [phone] ECRCL 80.95 ml/min Normal 50-250 [facility] Comment on above: Performed By: #### L 500.4100, L503.7505, L300.8000, L500.4050, L100.0100, L503.0106, L506.0200, L501.5200, L501.4021, L300.3900, L501.2300, L501.9520 #### [facility] [address] [place], [address] GAP 16 High 5-15 [facility] Comment on above: Performed By: #### L 500.4100, L503.7505, L300.8000, L500.4050, L100.0100, L503.0106, L506.0200, L501.5200, L501.4021, L300.3900, L501.2300, L501.9520 #### [facility] [address] [place], [place], [phone] (425) GFR/1.73 sq M.predicted among non-blacks MDRD (S/P/Bld) [Vol rate/Area] 89 mL/min/{1.73_m2} Normal >60 [facility] Comment on above: Result Comment: mL/m in/1.73m2 CKD-EPI Creatinine Equation (2020) Performed By: #### L 500.4100, L503.7505, L300.8000, L500.4050, L100.0100, L503.0106, L506.0200, L501.5200, L501.4021, L300.3900, L501.2300, L501.9520 #### [facility] [address] [place], [place], [phone] (655) Globulin (S) [Mass/Vol] 3.9 g/dL Normal 2.2-4.2 [facility] Comment on above: Performed By: #### L 500.4100, L503.7505, L300.8000, L500.4050, L100.0100, L503.0106, L506.0200, L501.5200, L501.4021, L300.3900, L501.2300, L501.9520 #### [facility] [address] [place], [place], [phone] (725) Glucose [Mass/Vol] 174 mg/dL High 70-99 [facility] Comment on above: Performed By: #### L 500.4100, L503.7505, L300.8000, L500.4050, L100.0100, L503.0106, L506.0200, L501.5200, L501.4021, L300.3900, L501.2300, L501.9520 #### [facility] [address] [place], [place], [phone] (196) Potassium [Moles/Vol] 3.9 mmol/L Normal 3.3-5.1 [facility] Comment on above: Performed By: #### L 500.4100, L503.7505, L300.8000, L500.4050, L100.0100, L503.0106, L506.0200, L501.5200, L501.4021, L300.3900, L501.2300, L501.9520 #### [facility] [address] [place], [address] Sodium [Moles/Vol] 139 mmol/L Normal 133-145 [facility] Comment on above: Performed By: #### L 500.4100, L503.7505, L300.8000, L500.4050, L100.0100, L503.0106, L506.0200, L501.5200, L501.4021, L300.3900, L501.2300, L501.9520 #### [facility] [address] [place], [address] T PROT 7.6 g/dL Normal 5.9-8.4 [facility] Comment on above: Performed By: #### L 500.4100, L503.7505, L300.8000, L500.4050, L100.0100, L503.0106, L506.0200, L501.5200, L501.4021, L300.3900, L501.2300, L501.9520 #### [facility] [address] [place], [address] Urea nitrogen [Mass/Vol] 21 mg/dL High 4-19 [facility] Comment on above: Performed By: #### L 500.4100, L503.7505, L300.8000, L500.4050, L100.0100, L503.0106, L506.0200, L501.5200, L501.4021, L300.3900, L501.2300, L501.9520 #### [facility] [address] [place], [address] Consultation - Cardiologyon 09-10-2024 Consultation - Cardiology [facility] Medical Records Department [address] [place] [address] Consultation - Cardiology 09/10/24 0751 MR#: [id number] Acct: [id number] Name: TYLOR PEDERSEN Rep #: [id number] : 1940 83 From: Dallas Muller MD PCP: Dr. Shayne Zaidi MD Status:ADM IN Location: [place] [address] Assessment Plan Assessment/Plan (1) Paroxysmal atrial fibrillation [...] was an occluded right coronary artery with ioxs-sv-apged collaterals. * In light of his negative [...] per se. He was apparently sent to [place] emergency room and a chest x-ray that [...] is pleasantly confused but no other problems. 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 Normal [facility] D-Dimer Quantitative (DVT/PE )on 09-10-2024 D-DIMER QUANT 0.39 FEU/ug/m Normal 0.27-0.49 [facility] Comment on above: Result Comment: NORM AL D-Dimer level (<0.50) indicates no DVT or PE. Performed By: #### L 500.4100, L503.7505, L300.8000, L500.4050, L100.0100, L503.0106, L506.0200, L501.5200, L501.4021, L300.3900, L501.2300, L501.9520 #### [facility] [address] [place], [address] Echo Complete W/ Contraston 09-10-2024 Echo Complete W/ Contrast [facility] [address] [place] [address] Echo Complete W/ Contrast 09/10/24 1001 MR#: [id number] Acct: [id number] Name: TYLOR PEDERSEN Rep #: [id number] : 1940 83 From: Dallas Muller MD [...] Date Dictated: 09/10/24 1001 Date Transcribed: 09/10/241718 [place] Operator: Signed Normal [facility] Echocardiogram study reportO rdered By: Dallas Muller on 09-10-2024 Study report [facility] [address] [place] [address] Echo Complete W/ Contrast 09/10/24 1001 MR#: [id number] Acct: [id number] Name: TYLOR PEDERSEN Rep #:[id number] : 1940 83 From: Dallas Moody Attending Dr: Dr. Aayush Sibley DO Status: ADM IN Ordering Dr: Kristopher Valencia DO Date: 09/10/24 Location: [facility] Sex: M C Admitted: 09/10/24 Reason For [...] Valencia DO; Dr. Shayne Zaidi MD; Dr. Ayaush Sibley DO ~ Date Dictated: 09/10/24 1001 Date Transcribed: 09/10/241718 [place] Operator: Signed [facility] Work Phone: Electrocardiogram reportOrde red By: Dallas Muller on 09-10-2024 EKG study [facility] Cardiovascular Services [address] [place] [address] 12 Lead EKG 09/10/24 0122 MR#: [id number] Acct: [id number] Name: TYLOR PEDERSEN Rep #:[id number] : 1940 83 From: Dallas Muller MD Attending Dr: Dr. Aayush Sibley DO Status: ADM IN Ordering Dr: Kristopher Valencia DO Date: 09/10/24 Location: [facility] Sex: M C Admitted: 09/10/24 Test Reason [...] was found Confirmed by RENZO GRAHAM, DALLAS ([id number]), medical transcription editor JESUS HERNANDEZ ([id number]) on 09/10/2024 8:29:31 AM Referred By: DR Valencia Confirmed By: DALLAS MULLER MD 09/10/24828 Date _ Dallas Muller MD CC: Dr. Kristopher Valencia DO; Dr. Shayne Zaidi MD; Dr. Aayush Sibley DO ~ Signed [facility] Work Phone: Eosinophil percentageOrdered By: Kristopher Diamond on 09-10-2024 Eosinophils/100 WBC (Bld) 0.0 % 0-5 [facility] Erythrocyte distribution wid th ratioOrdered By: Kristopher Diamond on 09-10-2024 Erythrocyte distribution width (RBC) [Ratio] 13.2 % 11.6-14.6 [facility] Erythrocyte distribution wid th standard deviationOrdered By: Kristopher Diamond on 09-10-2024 Erythrocyte distribution width (RBC) [Ratio] 47.6 fl High 35.1-43.9 [facility] Folate [Mass/volume] in Seru m or PlasmaOrdered By: rKistopher Diamond on 09-10-2024 Folate [Mass/Vol] 7.94 ng/mL 4.60-34.80 [facility] Comment on above: Hemolysis, Results w ill be affected, Requires Recollection. Folates,Serum (Folic Acid)on 09-10-2024 FOLATES,SERUM 7.94 ng/mL Normal 4.60-34.80 [facility] Comment on above: Order Comment: N Result Comment: Hemo lysis, Results will be affected, Requires Recollection. Performed By: #### L 500.4100, L503.7505, L300.8000, L500.4050, L100.0100, L503.0106, L506.0200, L501.5200, L501.4021, L300.3900, L501.2300, L501.9520 #### [facility] [address] [place], [address] H AND P Exam - Hospitaliston 09-10-2024 H&P Exam - Hospitalist [facility] Medical Records Department [address] [place] [address] H P Exam - Hospitalist 09/10/24 0118 MR#: [id number] Acct: [id number] Name: TYLOR PEDERSEN Rep #: [id number] : 1940 83 From: Kristopher Valencia DO PCP: Dr. Shayne Zaidi MD Status:ADM [facility] - General General Date of Admission: [...] apnea; on CPAP, CAD; s/p non-ST elevation LA with subsequent CABG x 2 (1992) and [...] hours as needed who was transferred from [facility] with complaints of shortness of breath, chest [...] dysuria, hematuria, headache, confusion or rash. At [facility] he was noted to have a [...] is expected to extend beyond 2 midnights. 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 Normal [facility] Hematocrit Auto (Bld) [Volum e fraction]Ordered By: Kristopher Diamond on 09-10-2024 Hematocrit (Bld) [Volume fraction] 44.1 % 40-54 [facility] Hemoglobin A1con 09-10-2024 HbA1c (Bld) [Mass fraction] 5.5 % Normal <=5.6 [facility] Comment on above: Result Comment: Norm al < 5.7 % Prediabetic 5.7 - 6.4 % Diabetic >or= 6.5 % Please note range changes. Performed By: #### L 501.9965 #### [facility] [address] [place], [place] [address] [place], [address] Hemoglobin A1c percentageOrd ered By: Kristopher Diamond on 09-10-2024 HbA1c (Bld) [Mass fraction] 5.5 % <5.7 [facility] Comment on above: Normal < 5.7 % Predi abetic 5.7 - 6.4 % Diabetic >or= 6.5 % Please note range changes. Hemoglobin measurementOrdere d By: Kristopher Diamond on 09-10-2024 Hemoglobin (Bld) [Mass/Vol] 14.3 g/dL 13.0-16.5 [facility] Immature granulocytes/100 WB C Auto (Bld)Ordered By: Kristopher Diamond on 09-10-2024 Immature granulocytes/100 WBC (Bld) 0.300 % 0.0-0.9 [facility] Comment on above: IG% - Immature Granu locytes (promyelocytes, myelocytes and metamyelocytes) > 1% indicates that a LEFT SHIFT is Present. Ketones Test strip Ql (U)Ord ered By: Kristopher Diamond on 09-10-2024 Ketones Ql (U) Negative Negative [facility] L501.4021on 09-10-2024 Trop T High Sen 8 ng/L Normal <=22 [facility] Comment on above: Performed By: #### L 500.4100, L503.7505, L300.8000, L500.4050, L100.0100, L503.0106, L506.0200, L501.5200, L501.4021, L300.3900, L501.2300, L501.9520 ####[facility] [address] [place], [place], [phone] LDL calc ser/plasOrdered By: Kristopher Diamond on 09-10-2024 Cholesterol in LDL [Mass/Vol] 40 mg/dL [facility] Comment on above: Cwtnlvdseh=306-221 m g/dL & Higher Czbk=247 mg/dL or greaterFriedwald Equation for LDL-C Laboratory - Chemistry and C hemistry - challengeOrdered By: Kristopher Diamond on 09-10-2024 AST [Catalytic activity/Vol] 41 U/L High <38 [facility] Legionella Antigen Urineon 0 09-10-2024 LEGU URINE, RANDOM Legionella Antigen result interpretation: L pneumo Ag Ur Ql Negative Presumptive negative for Legionella pneumophila serogroup 1 antigen in urine, suggesting no recent or current infection. Legionella Ag, Urine Negative (See interpretation below) Normal [facility] Comment on above: Performed By: #### L 501.9985 #### [facility] [address] [place], [address] Lipid Profileon 09-10-2024 CHOL:HDL 2.30 Normal [facility] Comment on above: Performed By: #### L 500.4100, L503.7505, L300.8000, L500.4050, L100.0100, L503.0106, L506.0200, L501.5200, L501.4021, L300.3900, L501.2300, L501.9520 ####[facility] [address] [place], [place], [phone](873) Cholesterol [Mass/Vol] 85 mg/dL Normal <=200 [facility] Comment on above: Result Comment: Chol esterol level, Desirable <200 mg/dL Borderline high cholesterol 200-239 mg/dL High cholesterol >=240 mg/dL Recommendations of the NCEP Adult Treatment Panel for the following risk-cutoff thresholds for the [place] population. Performed By: #### L 500.4100, L503.7505, L300.8000, L500.4050, L100.0100, L503.0106, L506.0200, L501.5200, L501.4021, L300.3900, L501.2300, L501.9520 ####[facility] [address] [place], [address](199) Cholesterol in HDL [Mass/Vol] 37 mg/dL Low [facility] Comment on above: Result [...] L503.0106, L506.0200, L501.5200, L501.4021, L300.3900, L501.2300, L501.9520 ####[facility] [address] [place], [address](060) Cholesterol in LDL [Mass/Vol] 40 mg/dL Normal [facility] Comment on above: Result Comment: Bord hvpexg=617-648 mg/dL Higher Wxez=946 mg/dL or greater Friedwald Equation for LDL-C Performed By: #### L 500.4100, L503.7505, L300.8000, L500.4050, L100.0100, L503.0106, L506.0200, L501.5200, L501.4021, L300.3900, L501.2300, L501.9520 ####[facility] [address] [place], [place], [phone](602) Cholesterol in VLDL [Mass/Vol] 8 mg/dL Normal 5-40 [facility] Comment on above: Performed By: #### L 500.4100, L503.7505, L300.8000, L500.4050, L100.0100, L503.0106, L506.0200, L501.5200, L501.4021, L300.3900, L501.2300, L501.9520 ####[facility] [address] [place], [place], [phone] Triglyceride [Mass/Vol] 42 mg/dL Normal [facility] Comment on above: Result Comment: The drugs N-Acetylcysteine and Metamizole may falsely depress this assay. Normal range: <150 mg/dL Borderline High: 150-199 mg/dL High: 200-499 mg/dL Very High: >500 mg/dL Performed By: #### L 500.4100, L503.7505, L300.8000, L500.4050, L100.0100, L503.0106, L506.0200, L501.5200, L501.4021, L300.3900, L501.2300, L501.9520 ####[facility] [address] [place], [place], [phone](671) MCV (mean corpuscular volume ) determinationOrdered By: Kristopher Diamond on 09-10-2024 MCV (RBC) [Entitic vol] 95.7 fL High 80-94 [facility] Magnesiumon 09-10-2024 Magnesium [Mass/Vol] 2.1 mg/dL Normal 1.5-2.2 [facility] Comment on above: Performed By: #### L 500.4100, L503.7505, L300.8000, L500.4050, L100.0100, L503.0106, L506.0200, L501.5200, L501.4021, L300.3900, L501.2300, L501.9520 ####[facility] [address] [place], [place], [phone] Magnesium measurement (mass/ volume)Ordered By: Kristopher Diamond on 09-10-2024 Magnesium (Unsp spec) [Mass/Vol] 2.1 mg/dL 1.5-2.2 [facility] Mean corpuscular hemoglobin (MCH) determinationOrdered By: Kristopher Diamond on 09-10-2024 MCH (RBC) [Entitic mass] 31.0 pg 27.0-32.0 [facility] Mean corpuscular hemoglobin concentration (MCHC) determinationOrdered By: Kristopher Diamond on 09-10-2024 MCHC (RBC) [Mass/Vol] 32.4 g/dL 32-36 [facility] Mean platelet volume determi nationOrdered By: Kristopher Diamond on 09-10-2024 Platelet mean volume (Bld) [Entitic vol] 9.2 fL 6.2-12.0 [facility] Microscopic analysis of urin e for red blood cells (RBC)Ordered By: Kristopher Diamond on 09-10-2024 Microscopic analysis of urine for red blood cells (RBC) 0-5 SEEN /hpf 0-5 [facility] Monocyte percentageOrdered B y: Kristopher Diamond on 09-10-2024 Monocytes/100 WBC (Bld) 2.8 % 0-10 [facility] Mucus LM Ql (Urine sed)Order ed By: Kristopher Diamond on 09-10-2024 Mucus Ql (Urine sed) 0 SEEN /hpf [facility] Natriuretic peptide.B prohor dianne N-Terminal [Mass/volume] in Serum or PlasmaOrdered By: Kristopher Diamond on 09-10-2024 Natriuretic peptide.B prohormone N-Terminal [Mass/Vol] 3825 pg/mL High <1800 [facility] Comment on above: Heart Failure Unlike ly: < 300 pg/mLHeart Failure Likely< 50 Years: > 450 pg/mL50-75 Years: > 900 pg/mL>75 Years: > 1800 pg/mL Neutrophil percentageOrdered By: Kristopher Diamond on 09-10-2024 Neutrophils/100 WBC (Bld) 94.5 % High 47-70 [facility] Nitrite Test strip Ql (U)Ord ered By: Kristopher Diamond on 09-10-2024 Nitrite Ql (U) Negative Negative [facility] No Panel InformationOrdered By: Kristopher Diamond on 09-10-2024 Blood Gas Sample Site Not entered [facility] Blood Gas Specimen Type ARIEL [facility] Oxygen Delivery Device Cannula [facility] Nucleated red blood cell per centageOrdered By: Kristopher Diamond on 09-10-2024 Nucleated RBC/100 WBC (Bld) [Ratio] 0 % 0-5 [facility] Phosphoruson 09-10-2024 Phosphate [Mass/Vol] 2.7 mg/dL Normal 2.7-4.5 [facility] Comment on above: Performed By: #### L 500.4100, L503.7505, L300.8000, L500.4050, L100.0100, L503.0106, L506.0200, L501.5200, L501.4021, L300.3900, L501.2300, L501.9520 ####[facility] [address] [place], [address] Platelet countOrdered By: Matthieu Diamond on 09-10-2024 Platelets (Bld) [#/Vol] 224 10*3/uL 150-450 [facility] Pro- Brain NATRIURETIC PEPTI Angel 09-10-2024 Natriuretic peptide B (Bld) [Mass/Vol] 3825 pg/mL High <=1800 [facility] Comment on above: Result Comment: Hear t Failure Unlikely: < 300 pg/mL Heart Failure Likely < 50 Years: > 450 pg/mL 50-75 Years: > 900 pg/mL >75 Years: > 1800 pg/mL Performed By: #### L 500.4100, L503.7505, L300.8000, L500.4050, L100.0100, L503.0106, L506.0200, L501.5200, L501.4021, L300.3900, L501.2300, L501.9520 ####[facility] [address] [place], [place], [phone] Protein Test strip Ql (U)Ord ered By: Kristopher Diamond on 09-10-2024 Protein Ql (U) Negative Negative [facility] Prothrombin Time w/INRon INR Coag (PPP) [Relative time] 1.5 {INR} Normal [facility] Comment on above: Performed By: #### L 500.4100, L503.7505, L300.8000, L500.4050, L100.0100, L503.0106, L506.0200, L501.5200, L501.4021, L300.3900, L501.2300, L501.9520 #### [facility] [address] [place], [place], [phone] PT Coag (PPP) [Time] 18.7 s High 11.7-14.9 [facility] Comment on above: Performed By: #### L 500.4100, L503.7505, L300.8000, L500.4050, L100.0100, L503.0106, L506.0200, L501.5200, L501.4021, L300.3900, L501.2300, L501.9520 #### [facility] [address] [place], [place], [phone] RBC Auto (Bld) [#/Vol]Ordere d By: Kristopher Diamond on 09-10-2024 RBC (Bld) [#/Vol] 4.61 10*6/uL 4.6-6.2 [facility] RESPIRATORY PANEL MOLECULARo n 09-10-2024 RP PANEL [...] Not Detected RSV B Not Detected Normal [facility] Comment on above: Performed By: #### M 100634 ####[facility] [address] [place], [place], [phone] Respiratory pathogens detect ion panel by molecular detection methodOrdered By: Kristopher Diamond on 09-10-2024 Respiratory pathogens DNA and RNA panel NIURKA+probe (Resp) [facility] Screening total cholesterol/ high density lipoprotein (HDL) cholesterol ratioOrdered By: Kristopher Diamond on 09-10-2024 Cholesterol.total/Choles terol in HDL [Mass ratio] 2.30 {ratio} [facility] Serum globulin measurementOr dered By: Kristopher Diamond on 09-10-2024 Globulin (S) [Mass/Vol] 3.9 g/dL 2.2-4.2 [facility] Serum or plasma alanine castillo otransferase (ALT) measurementOrdered By: Kristopher Diamond on 09-10-2024 ALT [Catalytic activity/Vol] 34 U/L <47 [facility] Serum or plasma albumin regan urement (mass/volume)Ordered By: Kristopher Diamond on 09-10-2024 Albumin [Mass/Vol] 3.7 g/dL 3.4-4.8 [facility] Serum or plasma albumin/glob ulin mass ratioOrdered By: Kristopher Diamond on 09-10-2024 Albumin/Globulin [Mass ratio] 0.9 {ratio} 0.9-2.4 [facility] Serum or plasma alkaline effie sphatase measurementOrdered By: Kristopher Diamond on 09-10-2024 ALP [Catalytic activity/Vol] 199 U/L High 40-129 [facility] Serum or plasma cholesterol in HDL measurement (mass/volume)Ordered By: Kristopher Diamond on 09-10-2024 Cholesterol in HDL [Mass/Vol] 37 mg/dL Low >40 [facility] Comment on above: National Cholesterol Education Program (NCEP) guidelines:<40 mg/dL: Low HDL-cholesterol (major risk factor for CHD)>= 60 mg/dL: High HDL-cholesterol (negative risk factor for CHD)HDL-cholesterol is affected by a number of factors, e.g. smoking, exercise, hormones, sex and age. Serum or plasma cholesterol measurement (mass/volume)Ordered By: Kristopher Diamond on 09-10-2024 Cholesterol [Mass/Vol] 85 mg/dL <201 [facility] Comment on above: Cholesterol level, D esirable <200 mg/dLBorderline high cholesterol 200-239 mg/dLHigh cholesterol >=240 mg/dLRecommendations of the NCEP Adult Treatment Panel for the following risk-cutoff thresholds for the [place] population. Squamous epithelial cells de tection in urine sediment by light microscopyOrdered By: Kristopher Diamond on 09-10-2024 Epithelial cells.squamous LM Ql (Urine sed) 0-5 SEEN /hpf 0-5 [facility] Strep pneumoniae Antig(UR,CS F)on [...] Test Negative URINE (See interpretation below) Normal [facility] Comment on above: Performed By: #### L 501.9985 #### [facility] [address] [place], [address] TSH DL <= 0.005 mIU/L QnOrde red By: Kristopher Diamond on 09-10-2024 TSH Qn 0.518 uIU/mL 0.300-4.200 [facility] Thyroid Stim Hormone (TSH)on 09-10-2024 TSH 0.518 uIU/mL Normal 0.300-4.200 [facility] Comment on above: Performed By: #### L 500.4100, L503.7505, L300.8000, L500.4050, L100.0100, L503.0106, L506.0200, L501.5200, L501.4021, L300.3900, L501.2300, L501.9520 ####[facility] [address] [place], [address] Total proteinOrdered By: Peter Diamond on 09-10-2024 Protein [Mass/Vol] 7.6 g/dL 5.9-8.4 [facility] Triglycerides measurementOrd ered By: Kristopher Diamond on 09-10-2024 Triglyceride [Mass/Vol] 42 mg/dL <199 [facility] Comment on above: The drugs N-Acetylcy steine and Metamizole may falsely depress this assay. Normal range: <150 mg/dLBorderline High: 150-199 mg/dLHigh: 200-499 mg/dLVery High: >500 mg/dL Troponin T HS 2 HRon 025 Trop T High Sen 7 ng/L Normal <=22 [facility] Comment on above: Performed By: #### L 500.4100, L503.7505, L300.8000, L500.4050, L100.0100, L503.0106, L506.0200, L501.5200, L501.4021, L300.3900, L501.2300, L501.9520 #### [facility] [address] [place], [place], [address] Troponin T HS 4 HRon 025 Trop T High Sen 6 ng/L Normal <=22 [facility] Comment on above: Performed By: #### L 500.4100, L503.7505, L300.8000, L500.4050, L100.0100, L503.0106, L506.0200, L501.5200, L501.4021, L300.3900, L501.2300, L501.9520 #### [facility] [address] [place], [address] Troponin T.cardiac [Mass/vol ume] in Serum or Plasma by High sensitivity methodOrdered By: Kristopher Diamond on 09-10-2024 Troponin T.cardiac High sensitivity method [Mass/Vol] 6 ng/L <22 [facility] Troponin T.cardiac High sensitivity method [Mass/Vol] 7 ng/L <22 [facility] Troponin T.cardiac High sensitivity method [Mass/Vol] 8 ng/L <22 [facility] Urinalysis, Completeon 09-10 BACTERIA 1+ /hpf Normal None Seen [facility] Comment on above: Order Comment: Urine , Random Performed By: #### L 501.9985 #### [facility] [address] [place], [address] EPI,SQUAMOUS 0-5 SEEN Normal 0-5 [facility] Comment on above: Order Comment: Urine , Random Performed By: #### L 501.9985 #### [facility] [address] [place], [address] RBC 0-5 SEEN Normal 0-5 [facility] Comment on above: Order Comment: Urine , Random Performed By: #### L 501.9985 #### [facility] [address] [place], [address] BILIRUBIN URINE Negative Normal Negative [facility] Comment on above: Order Comment: Urine , Random Performed By: #### L 501.9985 #### [facility] [address] [place], [address] Clarity (U) Clear Normal Clear [facility] Comment on above: Order Comment: Urine , Random Performed By: #### L 501.9985 #### [facility] [address] [place], [address] Color (U) Yellow Normal Yellow [facility] Comment on above: Order Comment: Urine , Random Performed By: #### L 501.9985 #### [facility] [address] [place], [address] GLUCOSE, UR Normal Normal Normal [facility] Comment on above: Order Comment: Urine , Random Performed By: #### L 501.9985 #### [facility] [address] [place], [address] KETONE UR Negative Normal Negative [facility] Comment on above: Order Comment: Urine , Random Performed By: #### L 501.9985 #### [facility] [address] [place], [address] LEUK ESTERASE Negative Normal Negative [facility] Comment on above: Order Comment: Urine , Random Performed By: #### L 501.9985 #### [facility] [address] [place], [address] Nitrite Ql (U) Negative Normal Negative [facility] Comment on above: Order Comment: Urine , Random Performed By: #### L 501.9985 #### [facility] [address] [place], [address] OCCULT BLOOD-UR 10 /ul Abnormal Negative [facility] Comment on above: Order Comment: Urine , Random Performed By: #### L 501.9985 #### [facility] [address] [place], [address] pH UR 6.0 Normal 5.0 - 8.0 [facility] Comment on above: Order Comment: Urine , Random Performed By: #### L 501.9985 #### [facility] [address] [place], [address] PROT DIPSTX Negative Normal Negative [facility] Comment on above: Order Comment: Urine , Random Performed By: #### L 501.9985 #### [facility] [address] [place], [address] SP.GR. DIPSTX 1.010 Normal 1.002-1.030 [facility] Comment on above: Order Comment: Urine , Random Performed By: #### L 501.9985 #### [facility] [address] [place], [address] UROBILI Normal Normal Normal [facility] Comment on above: Order Comment: Urine , Random Performed By: #### L 501.9985 #### [facility] [address] [place], [address] Mucus Ql (Urine sed) 0 SEEN Normal [facility] Comment on above: Order Comment: Urine , Random Performed By: #### L 501.9985 #### [facility] [address] [place], [address] WBC 0 SEEN Normal 0-5 [facility] Comment on above: Order Comment: Urine , Random Performed By: #### L 501.9985 #### [facility] [address] [place], [address] Urine Legionella pneumophila antigen detectionOrdered By: Kristopher Diamond on 09-10-2024 L. pneumophila Ag Ql (U) [facility] Urine clarityOrdered By: Peter Diamond on 09-10-2024 Clarity (U) Clear Clear [facility] Urine color determinationOrd ered By: Kristopher Diamond on 09-10-2024 Color (U) Yellow Yellow [facility] Urine glucose detectionOrder ed By: Kristopher Diamond on 09-10-2024 Glucose Ql (U) Normal mg/dl Normal [facility] Urine leukocyte esterase det ection by dipstickOrdered By: Kristopher Diamond on 09-10-2024 Leukocyte esterase Test strip Ql (U) Negative Negative [facility] Urine pHOrdered By: Kristopher kaufman on 09-10-2024 pH (U) 6.0 [pH] 5.0 - 8.0 [facility] Urine sediment bacteria coun t by microscopy (number/high power field)Ordered By: Kristopher Diamond on 09-10-2024 Bacteria LM.HPF (Urine sed) [#/Area] 1 /[HPF] None Seen [facility] Urine specific gravity measu rementOrdered By: Kristopher Diamond on 09-10-2024 Specific gravity (U) [Rel density] 1.010 1.002-1.030 [facility] Urine urobilinogen measureme ntOrdered By: Kristopher Diamond on 09-10-2024 Urobilinogen Ql (U) Normal mg/dl Normal [facility] Venous Blood Gason Blood Gas Type ARIEL Normal [facility] Comment on above: Performed By: #### L 900.0810 #### [facility] [address] [place], [address] CO2 [Moles/Vol] 37 mmol/L High 23-33 [facility] Comment on above: Performed By: #### L 8999.0810 #### [facility] [address] [place], [address] FI02 3.0 Normal [facility] Comment on above: Performed By: #### L 9000.0810 #### [facility] [address] [place], [address] HCO3 (Bld) [Moles/Vol] 35 mmol/L High 22-26 [facility] Comment on above: Performed By: #### L 900.0810 #### [facility] [address] [place], [address] O2 Delivery Dev Cannula Normal [facility] Comment on above: Performed By: #### L 9000.0810 #### [facility] [address] [place], [address] SITE Not entered [facility] Comment on above: Performed By: #### L 900.0810 #### [facility] [address] [place], [address] VBG BE 10 mmol/L High -1.0-3.5 [facility] Comment on above: Performed By: #### L 9000.0810 #### [facility] [address] [place], [address] VBG pCO2 54.8 mmHg High 41-51 [facility] Comment on above: Performed By: #### L 9000.0810 #### [facility] [address] [place], [place], [address] VBG pH 7.41 Normal 7.32-7.42 [facility] Comment on above: Performed By: #### L 9000.0810 #### [facility] [address] [place], [address] VBG PO2 68 mmHg High 25-40 [facility] Comment on above: Performed By: #### L 9000.0810 #### [facility] [address] [place], [address] VBG SO2 93 High 50-70 [facility] Comment on above: Performed By: #### L 9000.0810 #### [facility] [address] [place], [place], [address] Venous blood base excess rodolfo surementOrdered By: Kristopher Diamond on 09-10-2024 Base excess Calc (BldV) [Moles/Vol] 10 mmol/L High -1.0-3.5 [facility] Venous blood bicarbonate rodolfo surementOrdered By: Kristopher Diamond on 09-10-2024 HCO3 (Bld) [Moles/Vol] 35 mmol/L High 22-26 [facility] Venous blood oxygen saturati on measurementOrdered By: Kristopher Diamond on 09-10-2024 Oxygen saturation in Blood 93 % High 50-70 [facility] Venous blood pH measurementO rdered By: Kristopher Diamond on 09-10-2024 pH (BldV) 7.41 [pH] 7.32-7.42 [facility] Venous blood partial pressur e of carbon dioxide measurementOrdered By: Kristopher Diamond on 09-10-2024 CO2 (BldV) [Partial pressure] 54.8 mm[Hg] High 41-51 [facility] Venous blood partial pressur e of oxygen measurementOrdered By: Kristopher Diamond on 09-10-2024 Oxygen (BldV) [Partial pressure] 68 mm[Hg] High 25-40 [facility] Vitamin B12on 09-10-2024 Cobalamin (Vitamin B12) [Mass/Vol] 515 pg/mL Normal 180-914 [facility] Comment on above: Performed By: #### L 500.4100, L503.7505, L300.8000, L500.4050, L100.0100, L503.0106, L506.0200, L501.5200, L501.4021, L300.3900, L501.2300, L501.9520 ####[facility] [address] [place], [address] Vitamin B12 ser/plasOrdered By: Kristopher Diamond on 09-10-2024 Cobalamin (Vitamin B12) [Mass/Vol] 515 pg/mL 180-914 [facility] White blood cell (WBC) count Ordered By: Kristopher Diamond on 09-10-2024 WBC (Bld) [#/Vol] 10.8 10*3/uL 4.4-11.0 [facility] White blood cell countOrdere d By: Kristopher Diamond on 09-10-2024 White blood cell count 0 SEEN /hpf 0-5 [facility] ALLIED HEALTHon 09-09-2024 ALLIED HEALTH HNO ID: [id number] Author: AGNES BRIZUELA RT(R) Service: ? 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 RADIOLOGY DEPARTMENT: General X-ray: Exam(s) Completed: Chest X-Ray PERIPHERAL IV DATA: Not applicable SIGNED BY: Agnes Brizuela RT(R) September 09, 2024 7:49 PM Normal [facility] CBC W Auto Differential pane l (Bld)on 09-09-2024 Basophils (Bld) [#/Vol] 0.03 10*3/uL Normal <0.11 [facility] Comment on above: Order Comment: Speci men Type: BLOOD SPECIMENOrdering Facility: [facility] Address: [address] [place] [address] Performed By: #### 5 7021-8 ####[facility] LABCLIA [id number] [place] [id number] [place] Basophils/100 WBC (Bld) 0.3 % Normal A [facility] Comment on above: Order Comment: Speci men Type: BLOOD SPECIMENOrdering Facility: [facility] Address: [address] [place] [address] Performed By: #### 5 7021-8 ####[facility] LABCLIA [id number] [place] [address] [facility] [place] Differential cell count method Nom (Bld) Auto Normal [facility] Comment on above: Order Comment: Speci men Type: BLOOD SPECIMENOrdering Facility: [facility] Address: [address] [place] [address] Performed By: #### 5 7021-8 ####[facility] LABCLIA [id number] [place] [address] [place] Eosinophils (Bld) [#/Vol] 0.08 10*3/uL Normal <0.46 [facility] Comment on above: Order Comment: Speci men Type: BLOOD SPECIMENOrdering Facility: [facility] Address: [address] [place] [address] Performed By: #### 5 7021-8 ####[facility] LABCLIA [id number] [place] [address] [place] Eosinophils/100 WBC (Bld) 0.8 % Normal [facility] Comment on above: Order Comment: Speci men Type: BLOOD SPECIMENOrdering Facility: [facility] Address: [address] [place] [address] Performed By: #### 5 7021-8 ####[facility] LABCLIA [id number] [place] [address] [place] Erythrocyte distribution width (RBC) [Ratio] 13.2 % Normal 11.5-15.0 [facility] Comment on above: Order Comment: Speci men Type: BLOOD SPECIMENOrdering Facility: [facility] Address: [address] [place] [address] Performed By: #### 5 7021-8 ####[facility] LABCL[facility] [id number] [place] [address] [place] Hematocrit (Bld) [Volume fraction] 43.0 % Normal 39.0-51.0 [facility] Comment on above: Order Comment: Speci men Type: BLOOD SPECIMENOrdering Facility: [facility] Address: [address] [place] [address] Performed By: #### 5 7021-8 ####[facility] LABCLIA [id number] [place] [address] [facility] [place] Hemoglobin (Bld) [Mass/Vol] 13.4 g/dL Normal 13.0-17.0 [facility] Comment on above: Order Comment: Speci men Type: BLOOD SPECIMENOrdering Facility: [facility] Address: [address] [place] [address] Performed By: #### 5 7021-8 ####[facility] LABCLIA [id number] [place] [address] [facility] [place] Immature granulocytes (Bld) [#/Vol] 0.03 10*3/uL Normal <0.10 [facility] Comment on above: Order Comment: Speci men Type: BLOOD SPECIMENOrdering Facility: [facility] Address: [address] [place] [address] Performed By: #### 5 7021-8 ####[facility] LABCLIA [id number] [place] [address] [facility] Immature granulocytes/100 WBC (Bld) 0.3 % Normal [facility] Comment on above: Order Comment: Speci men Type: BLOOD SPECIMENOrdering Facility: [facility] Address: [address] [place] [address] Performed By: #### 5 7021-8 ####[facility] LABCLIA [id number] [place] [address] [facility] Lymphocytes (Bld) [#/Vol] 0.65 10*3/uL Low 1.00-4.00 [facility] Comment on above: Order Comment: Speci men Type: BLOOD SPECIMENOrdering Facility: [facility] Address: [address] [place] [address] Performed By: #### 5 7021-8 ####[facility] LABCLIA [id number] [address] Lymphocytes/100 WBC (Bld) 6.3 % Normal [facility] Comment on above: Order Comment: Speci men Type: BLOOD SPECIMENOrdering Facility: [facility] Address: [address] [place] [address] Performed By: #### 5 7021-8 ####[facility] LABCLIA [id number] [place] [address] [place] MCH (RBC) [Entitic mass] 30.7 pg Normal 26.0-34.0 [facility] Comment on above: Order Comment: Speci men Type: BLOOD SPECIMENOrdering Facility: [facility] Address: [address] [place] [address] Performed By: #### 5 7021-8 ####[facility] LABCLIA [id number] [place] [address] [place] MCHC (RBC) [Mass/Vol] 31.2 g/dL Normal 30.5-36.0 [facility] Comment on above: Order Comment: Speci men Type: BLOOD SPECIMENOrdering Facility: [facility] Address: [address] [place] [address] Performed By: #### 5 7021-8 ####[facility] LABCLIA [id number] [place] [address] [place] MCV (RBC) [Entitic vol] 98.4 fL Normal 80.0-100.0 [facility] Comment on above: Order Comment: Speci men Type: BLOOD SPECIMENOrdering Facility: [facility] Address: [address] [place] [address] Performed By: #### 5 7021-8 ####[facility] LABCLIA [id number] [place] [address] [place] Monocytes (Bld) [#/Vol] 0.94 10*3/uL High <0.87 [facility] Comment on above: Order Comment: Speci men Type: BLOOD SPECIMENOrdering Facility: [facility] Address: [address] [place] [address] Performed By: #### 5 7021-8 ####[facility] LABCLIA [id number] [place] [address] [facility] Monocytes/100 WBC (Bld) 9.1 % Normal A [facility] Comment on above: Order Comment: Speci men Type: BLOOD SPECIMENOrdering Facility: [facility] Address: [address] [place] [address] Performed By: #### 5 7021-8 ####[facility] LABCLIA [id number] [facility] [place] [address] [place] Neutrophils (Bld) [#/Vol] 8.55 10*3/uL High 1.45-7.50 [facility] Comment on above: Order Comment: Speci men Type: BLOOD SPECIMENOrdering Facility: [facility] Address: [address] [place] [address] Performed By: #### 5 7021-8 ####[facility] LABCLIA [id number] [facility] [place] [address] [place] Neutrophils/100 WBC (Bld) 83.2 % Normal [facility] Comment on above: Order Comment: Speci men Type: BLOOD SPECIMENOrdering Facility: [facility] Address: [address] [place] [address] Performed By: #### 5 7021-8 ####[facility] LABCLIA [id number] [facility] [place] [address] [place] Nucleated RBC (Bld) [#/Vol] Normal [facility] Comment on above: Order Comment: Speci men Type: BLOOD SPECIMENOrdering Facility: [facility] Address: [address] [place] [address] Performed By: #### 5 7021-8 ####[facility] LABCLIA [id number] [place] [address] [place] Nucleated RBC/100 WBC (Bld) [Ratio] Normal [facility] Comment on above: Order Comment: Speci men Type: BLOOD SPECIMENOrdering Facility: [facility] Address: [address] [place] [address] Performed By: #### 5 7021-8 ####[facility] LABCLIA [id number] [place] [address] [place] Platelet mean volume (Bld) [Entitic vol] 9.4 fL Normal 9.0-12.7 [facility] Comment on above: Order Comment: Speci men Type: BLOOD SPECIMENOrdering Facility: [facility] Address: [address] [place] [address] Performed By: #### 5 7021-8 ####[facility] LABCLIA [id number] [place] [address] [place] Platelets (Bld) [#/Vol] 219 10*3/uL Normal 150-400 [facility] Comment on above: Order Comment: Speci men Type: BLOOD SPECIMENOrdering Facility: [facility] Address: [address] [place] [address] Performed By: #### 5 7021-8 ####[facility] LABCLIA [id number] [facility] [address] [facility] RBC (Bld) [#/Vol] 4.37 10*6/uL Normal 4.20-6.00 [facility] Comment on above: Order Comment: Speci men Type: BLOOD SPECIMENOrdering Facility: [facility] Address: [address] [place] [address] Performed By: #### 5 7021-8 ####[facility] LABCLIA [id number] [facility] [place] [address] [facility] WBC (Bld) [#/Vol] 10.28 10*3/uL Normal 3.70-11.00 [facility] Comment on above: Order Comment: Speci men Type: BLOOD SPECIMENOrdering Facility: [facility] Address: [address] [place] [address] Performed By: #### 5 7021-8 ####[facility] LABCLIA [id number] [facility] [place] [address] [facility] Comprehensive metabolic 2000 panelon 09-09-2024 Albumin [Mass/Vol] 3.4 g/dL Low 3.9-4.9 [facility] Comment on above: Order Comment: Speci men Type: BLOOD SPECIMEN Ordering Facility: [facility] Address: [address] [place] [address] Performed By: #### 1 9123-9, 98340-6, 86200-6 #### [facility] CLIA [id number] [address] [facility] [place] [address] [facility] ALP [Catalytic activity/Vol] 182 U/L High 38-113 [facility] Comment on above: Order Comment: Speci men Type: BLOOD SPECIMEN Ordering Facility: [facility] Address: [address] [place] [address] Performed By: #### 1 9123-9, 37555-5, 43218-0 #### [facility] CLIA [id number] [address] [place] [address] [place] ALT With P-5'-P [Catalytic activity/Vol] 26 U/L Normal 10-54 [facility] Comment on above: Order Comment: Speci men Type: BLOOD SPECIMEN Ordering Facility: [facility] Address: [address] [place] [address] Performed By: #### 1 9123-9, 03739-1, 68422-7 #### [facility] CLIA [id number] [address] [place] [address] [place] Anion gap [Moles/Vol] 10 mmol/L Normal 8-15 [facility] Comment on above: Order Comment: Speci men Type: BLOOD SPECIMEN Ordering Facility: [facility] Address: [address] [place] [address] Performed By: #### 1 9123-9, 37211-3, 61280-7 #### [facility] CLIA [id number] [address] [place] [address] [place] AST With P-5'-P [Catalytic activity/Vol] 32 U/L Normal 14-40 [facility] Comment on above: Order Comment: Speci men Type: BLOOD SPECIMEN Ordering Facility: [facility] Address: [address] [place] [address] Performed By: #### 1 9123-9, 62415-2, 87471-6 #### [facility] CLIA [id number] [address] [place] [address] [place] Bilirubin [Mass/Vol] 0.8 mg/dL Normal 0.2-1.3 [facility] Comment on above: Order Comment: Speci men Type: BLOOD SPECIMEN Ordering Facility: [facility] Address: [address] [place] [address] Performed By: #### 1 9123-9, 04559-3, 08308-1 #### [facility] CLIA [id number] [address] [place] [address] [place] Calcium [Mass/Vol] 8.7 mg/dL Normal 8.5-10.2 [facility] Comment on above: Order Comment: Speci men Type: BLOOD SPECIMEN Ordering Facility: [facility] Address: [address] [place] [address] Performed By: #### 1 9123-9, 81664-3, 17084-4 #### [facility] CLIA [id number] [address] [place] [address] [place] Chloride [Moles/Vol] 100 mmol/L Normal 98-107 [facility] Comment on above: Order Comment: Speci men Type: BLOOD SPECIMEN Ordering Facility: [facility] Address: [address] [place] [address] Performed By: #### 1 9123-9, 52462-9, 76716-4 #### [facility] CLIA [id number] [address] [place] [address] [place] CO2 [Moles/Vol] 29 mmol/L Normal 22-30 [facility] Comment on above: Order Comment: Speci men Type: BLOOD SPECIMEN Ordering Facility: [facility] Address: [address] [place] [address] Performed By: #### 1 9123-9, 73523-5, 40638-0 #### [facility] CLIA [id number] [address] [place] [address] [place] Creatinine [Mass/Vol] 0.70 mg/dL Low 0.73-1.22 [facility] Comment on above: Order Comment: Speci men Type: BLOOD SPECIMEN Ordering Facility: [facility] Address: [address] [place] [address] Performed By: #### 1 9123-9, 51435-1, 50103-3 #### [facility] CLIA [id number] [address] [place] [address] [place] eGFRcr SerPlBld CKD-EPI 2020 91 mL/min/1.73m??? Normal >=60 [facility] Comment on above: Order Comment: Speci men Type: BLOOD SPECIMEN Ordering Facility: [facility] Address: [address] [place], [place] [address] Result Comment: Calista mated Glomerular Filtration Rate [...] actual GFR. Performed By: #### 1 9123-9, 74821-7, 83055-6 #### [facility] CLIA [id number] [address] [place] [address] [place] Glucose [Mass/Vol] 156 mg/dL High 74-99 [facility] Comment on above: Order Comment: Kika bryant Type: BLOOD SPECIMEN Ordering Facility: [facility] Address: [address] [place] [address] Result Comment: The [place] Diabetes Association (ADA) provides guidance for cutoff [...] Standards of Medical Care in Diabetes 2016, [place] Diabetes Association. Diabetes Care. 2016.39(Suppl 1). Performed By: #### 1 9123-9, 88178-4, 89658-2 #### [facility] CLIA [id number] [address] [place] [address] [place] Potassium [Moles/Vol] 3.8 mmol/L Normal 3.7-5.1 [facility] Comment on above: Order Comment: Kika bryant Type: BLOOD SPECIMEN Ordering Facility: [facility] Address: [address] [place] [address] Performed By: #### 1 9123-9, 74453-1, 46366-9 #### [facility] CLIA [id number] [address] [place] [address] [place] Protein [Mass/Vol] 7.1 g/dL Normal 6.3-8.0 [facility] Comment on above: Order Comment: Speci men Type: BLOOD SPECIMEN Ordering Facility: [facility] Address: [address] [place] [address] Performed By: #### 1 9123-9, 17080-0, 62498-1 #### [facility] CLIA [id number] [address] [place] [address] [place] Sodium [Moles/Vol] 139 mmol/L Normal 136-144 [facility] Comment on above: Order Comment: Speci men Type: BLOOD SPECIMEN Ordering Facility: [facility] Address: [address] [place] [address] Performed By: #### 1 9123-9, 99210-5, 61243-7 #### [facility] CLIA [id number] [address] [place] [id number] [place] Urea nitrogen [Mass/Vol] 22 mg/dL Normal 9-24 [facility] Comment on above: Order Comment: Speci men Type: BLOOD SPECIMEN Ordering Facility: [facility] Address: [address] [place] [address] Performed By: #### 1 9123-9, 31100-6, 58654-6 #### [facility] CLIA [id number] [address] [place] [address] [place] ECG COMPLETEon 09-09-2024 ECG COMPLETE Ventricular Rate : 1 19 BPM QRS Duration : 70 ms Q-T Interval : 318 ms QTC Calculation(Bazett) : 447 ms Calculated R Preston : 31 degrees Calculated T Preston : 59 degrees ATRIAL FIBRILLATION WITH RAPID VENTRICULAR RESPONSE NONSPECIFIC T WAVE ABNORMALITY ABNORMAL ECG NO PREVIOUS ECGS AVAILABLE Confirmed by MD MEADE VINAYAK ([id number]) on 09/13/2024 8:25:28 AM NAME : TYLOR PEDERSEN PID : [id number] : 1940 Gender : Male Race : ORD : [id number] Procedure Date : Sep 09 2024 18:51:28 Edit Date : Sep 13 2024 08:25:32 Diagnosis: ATRIAL FIBRILLATION WITH RAPID VENTRICULAR RESPONSE NONSPECIFIC T WAVE ABNORMALITY ABNORMAL ECG NO PREVIOUS ECGS AVAILABLE Confirmed by MD MEADE VINAYAK ([id number]) on 09/13/2024 8:25:28 AM Test Reason : Chest Pain Location : 191 : [facility] ED Overread By : MD MEADE VINAYAK Edited By : MD MEADE VINAYAK Referred By : , Acquired by : NINI MARTINEZ [facility] ED NOTEon 09-09-2024 ED NOTE HNO ID: [id number] Author: ANICETO VELAZQUEZ, FREIDA Service: Emergency Medicine Author Type: Registered Nurse Type: ED Notes Filed: 09/09/2024 23:36 Note Text: [facility] here for transport. Report given and care transferred [facility] ED NOTE HNO ID: [id number] Author: ANT LAYTON RN Service: Emergency Medicine Author Type: Registered Nurse Type: ED Notes Filed: 09/09/2024 22:48 Note Text: Accepted Dr Salazar [facility] bed 117 NTN [phone] ETA 60m [facility] ED NOTE HNO ID: [id number] Author: ANT LAYTON, FREIDA Service: Emergency Medicine Author Type: Registered Nurse Type: ED Notes Filed: 09/09/2024 21:28 Note Text: Family requesting admission to [facility] d/t patient [place] PCP and h/o cardiac stents placed at [facility]. Call placed to [place] nursing supervisor byproducts [phone], will forward info to hospitalist. Advised that hospitalist has several admissions pending and there will be a delay in acceptance and transfer if accepted. [facility] ED NOTE HNO ID: [id number] Author: DAINA SAMPSON, FREIDA Service: ? Author Type: Registered Nurse Type: ED Notes Filed: 09/09/2024 18:54 Note Text: Pt arrives after calling EMS for chest tightness which is resolved upon arrival. Pt reports chest tightness started 2 days ago. Pt reports Shortness of Breath has been worsening recently. Pt has strong productive cough with brown-yellow sputum. Pt wears 02-2.5LNC Normal [facility] ED PROV NOTEon 09-09-2024 ED PROV NOTE HNO ID: [id number] Author: TYLOR NG MD Service: Emergency Medicine [...] stents placed in 2021 by cardiology at [place]. Past couple of days he has not [...] HIP FRACTURE(S) Left 11/2017 hip screw placed [facility] FAMILY HISTORY Problem Relation Age of [...] rash. Neuro (more content not included)... Normal [facility] HIGH SENSITIVITY TROPONIN T (INITIAL)on 09-09-2024 Troponin T.cardiac High sensitivity method [Mass/Vol] 10 ng/L Normal <12 [facility] Comment on above: Order Comment: Speci men Type: BLOOD SPECIMEN Ordering Facility: [facility] Address: [address] [place] [address] Performed By: #### L [id number] #### [facility] CLIA [id number] [address] [place], [place] [id number] [place] [address] HIGH SENSITIVITY TROPONIN T (SECOND)on 09-09-2024 Troponin T.cardiac High sensitivity method [Mass/Vol] 10 ng/L Normal <12 [facility] Comment on above: Order Comment: Speci annette Type: BLOOD SPECIMENOrdering Facility: [facility] Address: [address] [place] [address] Performed By: #### L [id number] ####[facility] [id number] [place] [id number] [place] Magnesium SerPl-mCncon 09-09 Magnesium [Mass/Vol] 2.0 mg/dL Normal 1.7-2.3 [facility] Comment on above: Order Comment: Speci annette Type: BLOOD SPECIMEN Ordering Facility: [facility] Address: [address] [place] [address] Performed By: #### 1 9123-9, 42479-5, 50253-9 #### [facility] CLIA [id number] [address] [place] [address] [place] NT-proBNP SerPl-mCncon 09-09 Natriuretic peptide.B prohormone N-Terminal [Mass/Vol] 2490 pg/mL High <450 [facility] Comment on above: Order Comment: Kika bryant Type: BLOOD SPECIMEN Ordering Facility: [facility] Address: [address] [place] [address] Performed By: #### 1 9123-9, 01634-3, 54774-9 #### [facility] CLIA [id number] [address] [place] [address] [facility] PT panel Coag (PPP)on 2024 INR Coag (PPP) [Relative time] 1.4 {INR} High 0.9-1.3 [facility] Comment on above: Order Comment: Kika bryant Type: BLOOD SPECIMENOrdering Facility: [facility] Address: [address] [place] [address] Result Comment: Marilee min K Antagonist (VKA) Therapeutic Range: INR 2 to 3 (Target INR of 2.5) Note: For patients treated with VKA drugs, such as warfarin, the [place] [employer] Chest Physicians 2012 Guideline recommends [...] Chest 2012, 141:7S-47S Alvino RA, et al. [facility] 2017, 70: 252-289 Performed By: #### 3 4528-0 ####[facility] [id number] [place] [address] [place] PT Coag (PPP) [Time] 14.9 s High <13.1 [facility] Comment on above: Order Comment: Kika bryant Type: BLOOD SPECIMENOrdering Facility: [facility] Address: [address] [place] [address], [place] [address] Performed By: #### 3 4528-0 ####[facility] [id number] [place] [address] [facility] XR CHEST 1V FRONTALon 2024 XR CHEST [...] silhouette. Atherosclerotic calcifications of the thoracic aorta. 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 No regular third officer. 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 - [...] - Prescription sent to pharmacy. Recording using [employer] software for draft documentation of the visit was discussed with the patient/authorized advertising sales representative; all questions welcomed and answered. Patient/authorized advertising sales representative agreed to proceed Paddy Zaidi MD [...] [E78.00] Idiopathic peripheral neuropathy [G60.9] Atherosclerosis of chilkat coronary artery of chilkat heart without angina pectoris [I25.10] Order(s):nitroglycerin sublingual (NITROQUICK) 0.3 mg SL tabletDissolve 1 tablet under the tongue every 5 minutes as needed.Disp: 25 tabletRfl: (more content not included)... Normal [facility] 07-13-2024 [facility] Telephone (TIAWS) TYLOR PEDERSEN ([id number]) 1940 M Date Time Provider Department 07/13/24 TREY SMITH During your visit today, we recorded the following information about you: Trey Smith, CARDIOTHORACIC ICU RN.[facility] 07/13/2024 4:40 PM Signed Review of OSH CT with most recent CT does not show worsening of right hemidiaphragm. Left lower lobe nodule no longer seen. Atelectasis in LLL but no further concern for PNA. Needs to complete overnight oxygen testing. Cassy Jones LPN 07/16/2024 9:23 AM Signed Fax to [facility] for overnight records. 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 [id number] [place] [address] [place] Hematocrit (Bld) [Volume fraction] 45.0 % Normal 39.0-51.0 [facility] Comment on above: Order Comment: Speci men Type: BLOOD SPECIMENOrdering Facility: [facility] Address: [address] [place] [address] Performed By: #### 5 8410-2 ####[facility] [id number] [place] [address] [place] Hemoglobin (Bld) [Mass/Vol] 14.1 g/dL Normal 13.0-17.0 [facility] Comment on above: Order Comment: Speci men Type: BLOOD SPECIMENOrdering Facility: [facility] Address: [address] [place] [address] Performed By: #### 5 8410-2 ####[facility] [id number] [place] [address] [place] MCH (RBC) [Entitic mass] 29.9 pg Normal 26.0-34.0 [facility] Comment on above: Order Comment: Speci men Type: BLOOD SPECIMENOrdering Facility: [facility] Address: [address] [place] [address] Performed By: #### 5 8410-2 ####[facility] [id number] [address] MCHC (RBC) [Mass/Vol] 31.3 g/dL Normal 30.5-36.0 [facility] Comment on above: Order Comment: Speci men Type: BLOOD SPECIMENOrdering Facility: [facility] Address: [address] [place] [address] Performed By: #### 5 8410-2 ####[facility] [id number] [address] [place] MCV (RBC) [Entitic vol] 95.5 fL Normal 80.0-100.0 C [facility] Comment on above: Order Comment: Speci men Type: BLOOD SPECIMENOrdering Facility: [facility] Address: [address] [place] [address] Performed By: #### 5 8410-2 ####[facility] [id number] [place] [address] [place] Nucleated RBC (Bld) [#/Vol] 10*3/uL Normal <0.01 [facility] Comment on above: Order Comment: Speci men Type: BLOOD SPECIMENOrdering Facility: [facility] Address: [address] [place] [address] Performed By: #### 5 8410-2 ####[facility] [id number] [place] [address] [place] Platelet mean volume (Bld) [Entitic vol] 9.9 fL Normal 9.0-12.7 [facility] Comment on above: Order Comment: Speci men Type: BLOOD SPECIMENOrdering Facility: [facility] Address: [address] [place] [address] Performed By: #### 5 8410-2 ####[facility] [id number] [place] [address] [place] Platelets (Bld) [#/Vol] 164 10*3/uL Normal 150-400 [facility] Comment on above: Order Comment: Speci men Type: BLOOD SPECIMENOrdering Facility: [facility] Address: [address] [place] [address] Performed By: #### 5 8410-2 ####[facility] [id number] [place] [address] [place] RBC (Bld) [#/Vol] 4.71 10*6/uL Normal 4.20-6.00 [facility] Comment on above: Order Comment: Speci men Type: BLOOD SPECIMENOrdering Facility: [facility] Address: [address] [place] [address] Performed By: #### 5 8410-2 ####[facility] [id number] [place] [address] [place] WBC (Bld) [#/Vol] 11.36 10*3/uL High 3.70-11.00 [facility] Comment on above: Order Comment: Speci men Type: BLOOD SPECIMENOrdering Facility: [facility] Address: [address] [place] [address] Performed By: #### 5 8410-2 ####[facility] [id number] [place] [address] [place] CNOVon 06-29-2024 CNOV Office Visit (PULMWS ) TYLOR PEDERSEN ([id number]) 1940 M Date Time Provider Department 06/29/24 1:00 PM TREY SMITH PULMWS During your visit today, we recorded the following information about you: Pulse Respiration Blood pressure 69/minute 18/minute 108/64 Trey Smith, CARDIOTHORACIC ICU RN.[facility] 06/29/2024 7:32 PM Signed Pulmonary Medicine Patients name: Tylor Campbell PCP: Paddy Zaidi MD CC: follow-up HPI: Tylor Pedersen is a 83 year old male former 91-zkqz-vurv smoker quitting in 1992 with PMH significant for obesity, coronary artery disease s/p CABG and stent, previous stroke, GERD, HLD, prostate cancer s/p radiation, HTN, PAF on AC, central sleep apnea not wearing PAP, chronic hypoxemic respiratory failure. Current inhaled therapy Advair and PRN Albuterol. He presents today for follow-up with his construction operations manager. YOLANDA 03/2024 with exertional dyspnea, chest tightness and wheezing. Started on Advair at that time. Oximetry with ambulation at that time did not show need for supplemental O2 with exertion. He and his construction operations manager insist he can't even stand up without [...] in acut (more content not included)... Normal [facility] Comprehensive metabolic 2000 panelon 06-29-2024 Albumin [Mass/Vol] 4.0 g/dL Normal 3.9-4.9 [facility] Comment on above: Order Comment: Speci men Type: BLOOD SPECIMENOrdering Facility: [facility] Address: [address] [place] [address] Performed By: #### 2 4323-8 ####[facility] MILLWNCLIA [id number] [place] [address] [place] ALP [Catalytic activity/Vol] 123 U/L High 38-113 [facility] Comment on above: Order Comment: Speci men Type: BLOOD SPECIMENOrdering Facility: [facility] Address: [address] [place] [address] Performed By: #### 2 4323-8 ####[facility] MILLWNCLIA [id number] [place] [address] [place] ALT [Catalytic activity/Vol] 12 U/L Normal 10-54 [facility] Comment on above: Order Comment: Speci men Type: BLOOD SPECIMENOrdering Facility: [facility] Address: [address] [place] [address] Performed By: #### 2 4323-8 ####[facility] NEIL MILLTOWNCLIA [id number] [place] [address] [place] Anion gap [Moles/Vol] 11 mmol/L Normal 8-15 [facility] Comment on above: Order Comment: Speci men Type: BLOOD SPECIMENOrdering Facility: [facility] Address: [address] [place] [address] Performed By: #### 2 4323-8 ####[facility] DEYANIRA [id number] [place] [address] [place] AST [Catalytic activity/Vol] 15 U/L Normal 14-40 [facility] Comment on above: Order Comment: Speci men Type: BLOOD SPECIMENOrdering Facility: [facility] Address: [address] [place] [address] Performed By: #### 2 4323-8 ####[facility] YANGWinstonNCLOCA [id number] [place] [address] [place] Bilirubin [Mass/Vol] 0.8 mg/dL Normal 0.2-1.3 [facility] Comment on above: Order Comment: Speci men Type: BLOOD SPECIMENOrdering Facility: [facility] Address: [address] [place] [address] Performed By: #### 2 4323-8 ####[facility] [id number] [place] [address] [place] Calcium [Mass/Vol] 9.5 mg/dL Normal 8.5-10.2 [facility] Comment on above: Order Comment: Speci men Type: BLOOD SPECIMENOrdering Facility: [facility] Address: [address] [place] [address] Performed By: #### 2 4323-8 ####[facility] [id number] [place] [address] [place] Chloride [Moles/Vol] 101 mmol/L Normal 98-107 [facility] Comment on above: Order Comment: Speci men Type: BLOOD SPECIMENOrdering Facility: [facility] Address: [address] [place] [address] Performed By: #### 2 4323-8 ####[facility] NASSAUWNCLIA [id number] [place] [address] [place] CO2 [Moles/Vol] 26 mmol/L Normal 22-30 [facility] Comment on above: Order Comment: Speci men Type: BLOOD SPECIMENOrdering Facility: [facility] Address: [address] [place] [address] Performed By: #### 2 4323-8 ####[facility] [id number] [place] [address] [place] Creatinine [Mass/Vol] 0.75 mg/dL Normal 0.73-1.22 [facility] Comment on above: Order Comment: Speci men Type: BLOOD SPECIMENOrdering Facility: [facility] Address: [address] [place] [address] Performed By: #### 2 4323-8 ####[facility] [id number] [place] [address] [place] Creatinine and Glomerular filtration rate.predicted panel (S/P/Bld) 89 mL/min/1.73m??? Normal >=60 [facility] Comment on above: Order Comment: Speci men Type: BLOOD SPECIMENOrdering Facility: [facility] Address: [address] [place] [address] Result Comment: Calista mated Glomerular Filtration Rate [...] actual GFR. Performed By: #### 2 4323-8 ####[facility] NASSAUWNCLIA [id number] [place] [address] [place] Glucose [Mass/Vol] 111 mg/dL High 74-99 [facility] Comment on above: Order Comment: Speci men Type: BLOOD SPECIMENOrdering Facility: [facility] Address: [address] [place], [place] [address] Result Comment: The [place] Diabetes Association (ADA) provides guidance for cutoff [...] Standards of Medical Care in Diabetes 2016, [place] Diabetes Association. Diabetes Care. 2016.39(Suppl 1). Performed By: #### 2 4323-8 ####[facility] NASSAUWNVLIA [id number] [place] [address] [place] Potassium [Moles/Vol] 4.4 mmol/L Normal 3.7-5.1 [facility] Comment on above: Order Comment: Lanii men Type: BLOOD SPECIMENOrdering Facility: [facility] Address: [address] [place] [address] Performed By: #### 2 4323-8 ####[facility] NASSAUWNCLIA [id number] [place] [address] [place] Protein [Mass/Vol] 6.9 g/dL Normal 6.3-8.0 [facility] Comment on above: Order Comment: Lanii men Type: BLOOD SPECIMENOrdering Facility: [facility] Address: [address] [place], [place] [address] Performed By: #### 2 4323-8 ####[facility] NASSAUWNCLIA [id number] [place] [address] [place] Sodium [Moles/Vol] 138 mmol/L Normal 136-144 [facility] Comment on above: Order Comment: Speci men Type: BLOOD SPECIMENOrdering Facility: [facility] Address: [address] [place], [place] [address] Performed By: #### 2 4323-8 ####[facility] [id number] [place] [address] [place] Urea nitrogen [Mass/Vol] 23 mg/dL Normal 9-24 [facility] Comment on above: Order Comment: Speci men Type: BLOOD SPECIMENOrdering Facility: [facility] Address: [address] [place] [address] Performed By: #### 2 4323-8 ####[facility] [id number] [place] [address] [place] Lipid 1996 panelon 5 Cholesterol [Mass/Vol] 125 mg/dL Normal <200 [facility] Comment on above: Order Comment: Speci men Type: BLOOD SPECIMENOrdering Facility: [facility] Address: [address] [place] [address] Result Comment: <200 mg/dL, Desirable 200-239 mg/dL, Borderline high >239 mg/dL, High Performed By: #### 2 4331-1 ####[facility] LABCLIA [id number] [place] [address] [place] AMERICAH. [facility] [id number] [place] [address] [place]#### 3016-3 ####[facility] LABCLIA [id number] [place] [address] [place] Cholesterol in HDL [Mass/Vol] 44 mg/dL Normal >39 [facility] Comment on above: Order Comment: Speci men Type: BLOOD SPECIMENOrdering Facility: [facility] Address: [address] [place] [address] Result Comment: 40-5 9 mg/dL, Acceptable >59 mg/dL, High: Negative risk factor for coronary heart disease <40 mg/dL, Low: Positive risk factor for coronary heart disease Performed By: #### 2 4331-1 ####[facility] LABCLIA [id number] [place] [address] [place] [facility] [id number] [place] [address] [place]#### 3016-3 ####[facility] LABCLIA [id number] [address] STATES OF [place] Cholesterol in LDL [Mass/Vol] 66 mg/dL Normal <100 [facility] Comment on above: Order Comment: Speci men Type: BLOOD SPECIMENOrdering Facility: [facility] Address: [address] [place] [address] Result Comment: <100 mg/dL, Optimal 100-129 mg/dL, Near optimal/above optimal 130-159 mg/dL, Borderline high 160-189 mg/dL, High >189 mg/dL, Very high Secondary prevention optimal LDL Cholesterol levels are recommended to be <70 mg/dL LDL cholesterol is calculated using the Yost-NIH equation. Performed By: #### 2 4331-1 ####[facility] LABCLIA [id number] [address] STATES OF [facility] [id number] [address] STATES OF [place]#### 3016-3 ####[facility] LABCLIA [id number] [place] [address] [place] Cholesterol in LDL/Cholesterol in HDL [Mass ratio] 1.50 {ratio} Normal <2.54 [facility] Comment on above: Order Comment: Speci men Type: BLOOD SPECIMENOrdering Facility: [facility] Address: [address] [place] [address] Result Comment: Ana red: 1. National Cholesterol Education Program ATP III Guideline At-A-Glance Quick Desk Reference: National Heart, Lung, and Blood [place]. National Institutes of Health. 2001: NIH Publication No. 01-3305. 2. An International Atherosclerosis Society position paper: global recommendations for the management of dyslipidemia: executive summary, Atherosclerosis. 2014: 232(2):410-413. Performed By: #### 2 4331-1 ####[facility] LABCLIA [id number] [address] [id number] [place] [address] [place]#### 3016-3 ####[facility] LABCLIA [id number] [address] STATES OF [place] Cholesterol in VLDL [Mass/Vol] 11 mg/dL Normal <30 [facility] Comment on above: Order Comment: Lanii men Type: BLOOD SPECIMENOrdering Facility: [facility] Address: [address] [place] [address] Performed By: #### 2 4331-1 ####[facility] LABCLIA [id number] [place] [id number] [place] [address]#### 3016-3 ####[facility] LABCLIA [id number] [place] [address] [place] OF [place] Cholesterol non HDL [Mass/Vol] 81 mg/dL Normal <130 [facility] Comment on above: Order Comment: Kika men Type: BLOOD SPECIMENOrdering Facility: [facility] Address: [address] [place] [address] Result Comment: <130 mg/dL, Optimal 130-159 mg/dL, Near optimal/above optimal 160-189 mg/dL, Borderline high 190-219 mg/dL, High >219 mg/dL, Very high Secondary prevention optimal non HDL Cholesterol levels are recommended to be <100 mg/dL Performed By: #### 2 4331-1 ####[facility] LABCLIA [id number] [place] [facility] [address] [place] [address] [place] OF [facility] [id number] [place] [address] [place]#### 3016-3 ####[facility] LABCLIA [id number] [address] [place] [address] [place] Cholesterol.total/Choles terol in HDL [Mass ratio] 2.84 {ratio} Normal <5.10 [facility] Comment on above: Order Comment: Speci men Type: BLOOD SPECIMENOrdering Facility: [facility] Address: [address] [place] [address] Performed By: #### 2 4331-1 ####[facility] LABCLIA [id number] [address], [facility] [place] STATES OF [facility] [id number] [place] [address] [place]#### 3016-3 ####[facility] LABCLIA [id number] [address] [place] [address] [place] FASTING TIME 12 hrs Normal [facility] Comment on above: Order Comment: Speci men Type: BLOOD SPECIMENOrdering Facility: [facility] Address: [address] [place], [place] [address] Performed By: #### 2 4331-1 ####[facility] LABCLIA [id number] [place] [facility] [address] [place] [address] [place] [facility] [id number] [place] [address] [place]#### 3016-3 ####[facility] LABCLIA [id number] [place] [facility] [address] Triglyceride [Mass/Vol] 71 mg/dL Normal <150 [facility] Comment on above: Order Comment: Kika bryant Type: BLOOD SPECIMENOrdering Facility: [facility] Address: [address] [place] [address] Result Comment: <150 mg/dL, Normal 150-199 mg/dL, Borderline high 200-499 mg/dL, High >499 mg/dL, Very high Performed By: #### 2 4331-1 ####[facility] LABCLIA [id number] [address] [id number] [address]#### 3016-3 ####[facility] LABCLIA [id number] [address] PT panel Coag (PPP)on 2024 INR Coag (PPP) [Relative time] 1.2 {INR} Normal 0.9-1.3 [facility] Comment on above: Order Comment: Kika bryant Type: BLOOD SPECIMENOrdering Facility: [facility] Address: [address] [place] [address] Result Comment: Marilee min K Antagonist (VKA) Therapeutic Range: INR 2 to 3 (Target INR of 2.5) Note: For patients treated with VKA drugs, such as warfarin, the [place] College of Chest Physicians 2012 Guideline recommends [...] Chest 2012, 141:7S-47S Alvino RA, et al. [facility] 2017, 70: 252-289 Performed By: #### 3 4528-0 ####[facility] [id number] [place] [address] [place] PT Coag (PPP) [Time] 12.6 s Normal <13.1 [facility] Comment on above: Order Comment: Speci men Type: BLOOD SPECIMENOrdering Facility: [facility] Address: [address] [place] [address] Performed By: #### 3 4528-0 ####[facility] [id number] [address] STATES OF [place] TSH SerPl-aCncon 06-29-2024 TSH Qn 2.210 m[IU]/L Normal 0.270-4.200 [facility] Comment on above: Order Comment: Speci men Type: BLOOD SPECIMENOrdering Facility: [facility] Address: [address] [place] [address] Performed By: #### 2 4331-1 ####[facility] [id number] [address] OF [facility] [id number] [place] [address] OF [place]#### 3016-3 ####[facility] [id number] [address] OF [place] CNOVon 03-27-2024 CNOV Office Visit (PULMWS ) TYLOR PEDERSEN ([id number]) 1940 M Date Time Provider Department 03/27/24 2:00 PM TREY SMITH PULMWS During your visit today, we recorded the following information about you: Pulse Respiration Blood pressure 90/minute 18/minute 122/80 Trey Smith APRN.CNP 03/27/2024 5:53 PM Signed Pulmonary Medicine Patients name: Tylor Campbell PCP: Paddy Zaidi MD CC: follow-up HPI: Tylor Pedersen is a 83 year old male former 75-xyye-cnob smoker quitting in 1992 with PMH significant [...] Had also just previously been hospitalized at [facility] for Pneumonia. At his last visit, [...] tightness. 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 No [...] 160-9-4.8 mcg/actuation HFA aerosol inhaler Generic drug: dkdkkdvxgf-uwtevyuz-mqg moterol Inhale 2 Puffs as instructed two [...] for arthra (more content not included)... Normal [facility] CT CHEST WO IVCONon 03-27-19 CT CHEST WO IVCON * * *Final Report* * * DATE OF EXAM: Mar 27 2024 3:54PM [facility] 0541 - CT CHEST WO IVCON [...] enlargement. Status post CABG surgery with severe chilkat coronary artery atherosclerotic calcifications are noted, although [...] significantly enlarged lymph nodes in the chest. Barratte Operator: FATOUMATA Transcribe Date/Time: Mar 31 2024 5:10P Dictated by : VIDA CAAL MD This examination was interpreted and the report reviewed and electronically signed by: VIDA CAAL MD on Mar 31 2024 5:18PM EST [id number] Normal [facility] OXIMETRY WITH AMBULATIONon 0 03-27-2024 Mayra [...] Patient does not have a faster pace [facility] Tessa 03-21-2024 [facility] Telephone (ELIZABETH) BURGESSTYLOR Milian ([id number]) 1940 M Date Time Provider Department 03/21/24 [...] TABLET BY MOUTH ONCE DAILY DIRECTED - kilbtbepnw-gqkuecbe-qtf moterol (BREZTRI AEROSPHERE) 160-9-4.8 mcg/actuation HFA aerosol [...] Anxiety [F41.9] 12/23/2021 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 Telephone (FPWADS) TYLOR PEDERSEN ([id number]) 1940 M Date Time Provider Department 03/06/24 PADDY ZAIDI [email or web address] During your visit today, we recorded the [...] a day. Call Hui back with response [phone]-did advise her to clean out VM so we can leave messages. FREIDA Olivarez Jeffery R, MD 03/16/2024 5:19 PM Signed Just take 1 time dose of 5 mg. One extra pill just one dose. Check INR in 2 weeks MD True Sheehan, Violetta Gee, FREIDA 03/17/2024 9:32 AM Signed Called Hui at [phone] Vm still full-could not leave message. Called all other listed numbers- no answer. VM's are all full-could not leave message. Not active on MyChart. Will need to try again later. FREIDA Olivarez Melanie, RN 03/19/2024 10:52 AM Signed Called [phone]. No answer. Mailbox still full. 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 Normal [facility] CNOVon 03-05-2024 CNOV Office Visit (PULMWS ) TYLOR PEDERSEN ([id number]) 1940 M Date Time Provider Department 03/05/24 3:15 PM BURTON HUYNH PULMDAI During your visit today, we recorded the following information about you: Pulse Respiration Blood pressure Weight 112/minute 14/minute 122/68 96.2 kg Height 1.715 m Burton Huynh MD 03/05/2024 4:00 PM Signed . Respiratory [place] Note Patient name: Tylor Pedersen PCP: Paddy Zaidi MD Referring Physician: Hever Martínez CNP Consultation requested by Hever Martínez for an opinion regarding COPD. My final recommendations will be communicated back to the requesting physician by way of shared Medical record or letter to requesting physician via US mail. CC: COPD HPI: Tylor Pedersen 83 year old male former 72-altf-tnbx smoker quitting in 1992 with PMH significant for obesity, coronary artery disease s/p CABG and stent, previous stroke, GERD, HLD, prostate cancer s/p radiation, HTN, PAF on AC, central sleep apnea not wearing PAP, chronic hypoxemic respiratory failure being sent for evaluation of COPD. Recently hospitalized at [facility] for pneumonia. CT of the chest [...] recurrent bronchitis. DME: [employer] DATA: PFT: PFT [facility] 10/23/2018; FVC 2.41 L 57% FEV1 1.62 L 54% FEV1/FVC 67% No improvement post-bronchodilator TLC 5.01 L 76% RV 2.60 L 94% RV/TLC 52% DLCO 15.2 73% Imaging / Diagnostic Studies: [facility] MR#: [id number] Acct: [id number] Name: TYLOR PEDERSEN Rep #: [id number] : 1940 M 83 From: Shayne Holt [...] the tongue every 5 minutes as needed. qszzxvzpwm-rgddcptq-lcx moterol (BREZTRI AEROSPHERE) 160-9-4.8 mcg/actuation HFA aerosol inhaler Inhale 2 Puffs as instructed two times a day. albuterol HFA (PROVENTIL HFA, VENTOLIN HFA) 90 mcg/actuation inhaler Inhale 2 Puffs as instructed every 4 hours as needed for wheezing/shortness of breath. warfarin (COUMADIN) (more content not included)... Normal [facility] No Panel Informationon 03-05 DLCO (ml/min/mmHg) 12.07 ml/min/mmHg [facility] DLCO LLN (ml/min/mmHg) 11.87 ml/min/mmHg [facility] DLCO PREDICTED (ml/min/mmHg) 21.80 ml/min/mmHg [facility] DLCO ULN (ml/min/mmHg) 31.74 ml/min/mmHg [facility] DLCO/VA (ml/min/mmHg/L) 4.14 ml/m in/mmHg/ L [facility] DLCO/VA PREDICTED (ml/min/mmHg/L) 3.63 ml/min/mmHg/ L [facility] DLCOcor PREDICTED (ml/min/mmHg) 21.80 ml/min/mmHg [facility] ERV PREDICTED (L) 1.12 L/S [facility] FEF25% POST (L/S) 3.52 L/S [facility] FEF25% PRE (L/S) 2.38 L/S [facility] KCB68-20% LLN (L/S) 0.63 L/S [facility] BFW27-94% POST (L/S) 0.46 L/S [facility] OER63-32% PRE (L/S) 0.42 L/S [facility] BGW25-70% PREDICTED (L/S) 1.77 L/S [facility] FEF75% LLN (L/S) 0.13 L/S [facility] FEF75% POST (L/S) 0.13 L/S [facility] FEF75% PRE (L/S0 0.14 L/S [facility] FEF75% PREDICTED (L/S) 0.41 L/S [facility] FEF75% ULN (L/S) 1.23 L/S [facility] FET POST (S) 10.37 S [facility] FET PRE (S) 11.27 S [facility] FEV1 LLN (L) 1.76 L [facility] FEV1 PRE (L) 1.19 L [facility] FEV1 PREDICTED (L) 2.46 L [facility] FEV1 ULN (L) 3.11 L [facility] FEV1/FVC LLN (%) 61 % [facility] FEV1/FVC POST (%) 64 % [facility] FEV1/FVC PRE (%) 60 % [facility] FEV1/FVC PREDICTED (%) 76 % [facility] FEV1_POST (L) 1.23 L [facility] FVC LLN (L) 2.46 L [facility] FVC POST (L) 1.93 L [facility] FVC PRE (L) 1.97 L [facility] FVC PREDICTED (L) 3.35 L [facility] FVC ULN (L) 4.26 L [facility] IC PREDICTED (L) 2.24 L/S [facility] PEF LLN (L/S) 3.95 L/S [facility] PEF POST (L/S) 4.29 L/S [facility] PEF PRE (L/S) 4.00 L/S [facility] PEF ULN (L/S) 8.26 L/S [facility] SVC LLN (L) 2.46 L/S [facility] SVC PREDICTED (L) 3.35 L/S [facility] SVC ULN (L) 4.26 L/S [facility] VA (L) 2.92 L [facility] VA PREDICTED (L) 6.34 L [facility] [address] [place] [address] Test Date: 2024-03-05 Pat Name: TYLOR PEDERSEN Department: Room: Gender: M 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 PULMONARY FUNCTION LAB [facility] PT panel Coag (PPP)on 2024 INR Coag (PPP) [Relative time] 1.5 {INR} High 0.9-1.3 [facility] Comment on above: Order Comment: Speci men Type: BLOOD SPECIMENOrdering Facility: [facility] Address: [address] [place] [id number] Result Comment: Marilee min K Antagonist (VKA) Therapeutic Range: INR 2 to 3 (Target INR of 2.5) Note: For patients treated with VKA drugs, such as warfarin, the [place] [employer] Chest Physicians 2012 Guideline recommends [...] Chest 2012, 141:7S-47S Alvino RA, et al. [facility] 2017, 70: 252-289 Performed By: #### 3 4528-0 ####[facility] [id number] [place] [address] [place] PT Coag (PPP) [Time] 15.8 s High <13.1 [facility] Comment on above: Order Comment: Speci men Type: BLOOD SPECIMENOrdering Facility: [facility] Address: [address] [place] [id number] Performed By: #### 3 4528-0 ####[facility] [id number] [address] STATES OF [place] CNPRadha 02-15-2024 [facility] Telephone (FPWADS) TYLOR PEDERSEN ([id number]) 1940 M Date Time Provider Department 02/15/24 [...] of symptoms: N/A Hui Call patient at: [phone] (home) [phone] (cell) Was an appointment scheduled: No Closing [...] for 1x per week, standing order for [place] lab. Once he's on a steady dose can cut this back to 1x per sergio . MD Marissa Sheehan Lisa, LPN 02/16/2024 10:22 AM Signed Patients son aware that medication was sent to [facility] in [place]. Son stated he understood that blood work needed drawn in 1 week in [place]. 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 Normal [facility] CNOVon 02-14-2024 CNOV Office Visit (ELIZABETH ) TYLOR PEDERSEN ([id number]) 1940 M Date Time Provider Department 02/14/24 2:00 PM HEVER MARTÍNEZ During your visit today, we recorded the following information about you: Pulse Blood pressure 96/minute 132/78 Hever Martínez APRN.DRAMATIC CRITIC 02/14/2024 4:39 PM Signed This note was created using [employer] Cell[employer]. Subjective Tylor Pedersen is a 83 year old male. 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 Treated for RLL pneumonia at the [...] of AFIB and CAD, never seen a third officer. Uses walker for ambulation, sleeps in the [...] HIP FRACTURE(S) Left 11/2017 hip screw placed [facility] ALLERGIES Aspirin, Oxycodone, and Percodan [Oxycodone-Aspirin] [...] type (HCC) Recommend to establish care with machine shop instructor, continue oxygen. - CONSULT TO PULMONARY MEDICINE 3. Adjustment disorder with mixed anxiety an (more content not included)... 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 [...] Encounter Status:Closed by SHAYNE ZAIDI on 02/14/[address] [facility] Telephone (FPWADS) PEDERSENTYLOR Mann ([id number]) 1940 M Date Time Provider Department 02/14/24 HEVER MARTÍNEZ During your visit today, we recorded the following information about you: Shena Muñoz 02/14/2024 4:12 PM Signed 1st attempt to reach for scheduling, left voicemail. Adrian was seen at [facility] care today, and Hever referred him to see Pulmonology. He was unable to stay for scheduling but he and his caregiver said they would like to do all the appointments at [place]. 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 Placed in provider's inbox for review. 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, [address] CA,Total 9.5 mg/dL Normal 8.5-10.1 [facility] Comment on above: Performed By: #### L 500.2500, L100.0100 ####[facility] [address] [place], [address] Chloride [Moles/Vol] 102 mmol/L Normal 98-107 [facility] Comment on above: Performed By: #### L 500.2500, L100.0100 ####[facility] [address] [place], [address] CO2 [Moles/Vol] 32.0 mmol/L Normal 21.0-32.0 [facility] Comment on above: Performed By: #### L 500.2500, L100.0100 ####[facility] [address] [place], [address] Creatinine [Mass/Vol] 0.81 mg/dL Normal 0.70-1.30 [facility] Comment on above: Result Comment: The validity of the calculated GFR GFRAA in patients over 70 years has not been determined. Clinical correlation is essential. Performed By: #### L 500.2500, L100.0100 ####[facility] [address] [place], [address] EST GFR - AA 117 mL/min Normal >60 [facility] Comment on above: Result Comment: Afri can [place] GFR Calc Performed By: #### L 500.2500, L100.0100 ####[facility] [address] [place], [address] GAP 3 Low 5-15 [facility] Comment on above: Performed By: #### L 500.2500, L100.0100 ####[facility] [address] [place], [address] GFR/1.73 sq M.predicted among non-blacks MDRD (S/P/Bld) [Vol rate/Area] 97 mL/min/{1.73_m2} Normal >60 [facility] Comment on above: Result Comment: Non- GFR Calc Performed By: #### L 500.2500, L100.0100 ####[facility] [address] [place], [address] Glucose [Mass/Vol] 117 mg/dL High 74-106 [facility] Comment on above: Result Comment: Fast ing Glucose result from 100 to 125 mg/dL suggests IMPAIRED HOMEOSTASIS per A.D.A. criteria. Performed By: #### L 500.2500, L100.0100 ####[facility] [address] [place], [address] Potassium [Moles/Vol] 4.6 mmol/L Normal 3.5-5.1 [facility] Comment on above: Performed By: #### L 500.2500, L100.0100 ####[facility] [address] [place], [address] Sodium [Moles/Vol] 137 mmol/L Normal 136-145 [facility] Comment on above: Performed By: #### L 500.2500, L100.0100 ####[facility] [address] [place], [address] Urea nitrogen [Mass/Vol] 22 mg/dL High 7-18 [facility] Comment on above: Performed By: #### L 500.2500, L100.0100 ####[facility] [address] [place], [address] CBC W/Diff, Automatedon 12-3 1-2023 Absolute Lymph 0.90 X10 3/uL Normal 0.83-4.51 [facility] Comment on above: Performed By: #### L 500.2500, L100.0100 ####[facility] [address] [place], [address] Absolute Neut 12.6 X10 3/uL High 2.0-7.7 [facility] Comment on above: Performed By: #### L 500.2500, L100.0100 ####[facility] [address] [place], [address] Basophils/100 WBC (Bld) 0.7 % Normal 0-1 [facility] Comment on above: Performed By: #### L 500.2500, L100.0100 ####[facility] [address] [place], [address] Eosinophils/100 WBC (Bld) 1.4 % Normal 0-5 [facility] Comment on above: Performed By: #### L 500.2500, L100.0100 ####[facility] [address] [place], [address] Erythrocyte distribution width (RBC) [Ratio] 13.2 % Normal 11.6-14.6 [facility] Comment on above: Performed By: #### L 500.2500, L100.0100 ####[facility] [address] [place], [address] Hematocrit (Bld) [Volume fraction] 46.2 % Normal 40-54 [facility] Comment on above: Performed By: #### L 500.2500, L100.0100 ####[facility] [address] [place], [address] Hemoglobin (Bld) [Mass/Vol] 14.5 g/dL Normal 13.0-16.5 [facility] Comment on above: Performed By: #### L 500.2500, L100.0100 ####[facility] [address] [place], [address] IG% 1.200 High 0.0-0.9 [facility] Comment on above: Result Comment: IG% - Immature Granulocytes (promyelocytes, myelocytes and metamyelocytes) > 1% indicates that a LEFT SHIFT is Present. Performed By: #### L 500.2500, L100.0100 ####[facility] [address] [place], [address] Lymphocytes/100 WBC (Bld) 6.1 % Low 19-41 [facility] Comment on above: Performed By: #### L 500.2500, L100.0100 ####[facility] [address] [place], [address] MCH (RBC) [Entitic mass] 31.1 pg Normal 27.0-32.0 [facility] Comment on above: Performed By: #### L 500.2500, L100.0100 ####[facility] [address] [place], [address] MCHC (RBC) [Mass/Vol] 31.4 g/dL Low 32-36 [facility] Comment on above: Performed By: #### L 500.2500, L100.0100 ####[facility] [address] [place], [address] MCV (RBC) [Entitic vol] 99.1 fL High 80-94 [facility] Comment on above: Performed By: #### L 500.2500, L100.0100 ####[facility] [address] [place], [address] Monocytes/100 WBC (Bld) 5.0 % Normal 0-10 [facility] Comment on above: Performed By: #### L 500.2500, L100.0100 ####[facility] [address] [place], [address] Neutrophils/100 WBC (Bld) 85.6 % High 47-70 [facility] Comment on above: Performed By: #### L 500.2500, L100.0100 ####[facility] [address] [place], [address] Nucleated RBC (Bld) [#/Vol] 0 10*3/uL Normal 0-5 [facility] Comment on above: Performed By: #### L 500.2500, L100.0100 ####[facility] [address] [place], [address] Platelet mean volume (Bld) [Entitic vol] 8.7 fL Normal 6.2-12.0 [facility] Comment on above: Performed By: #### L 500.2500, L100.0100 ####[facility] [address] [place], [address] Platelets (Bld) [#/Vol] 243 10*3/uL Normal 150-450 [facility] Comment on above: Performed By: #### L 500.2500, L100.0100 ####[facility] [address] [place], [address] RBC (Bld) [#/Vol] 4.66 10*6/uL Normal 4.6-6.2 [facility] Comment on above: Performed By: #### L 500.2500, L100.0100 ####[facility] [address] [place], [address] RDW SD 47.5 fl High 35.1-43.9 [facility] Comment on above: Performed By: #### L 500.2500, L100.0100 ####[facility] [address] [place], [address] WBC (Bld) [#/Vol] 14.7 10*3/uL High 4.4-11.0 [facility] Comment on above: Performed By: #### L 500.2500, L100.0100 ####[facility] [address] [place], [address] CTA Chest W/WO Contraston CTA Chest W/WO Contrast [facility] Imaging Services [address] [place] [address] CTA Chest W/WO Contrast MR#: [id number] Acct: [id number] Name: TYLOR PEDERSEN Rep #: [id number] : 1940 M 83 From: Shayne Holt MD PCP: Dr. Shayne Zaidi MD Status: [facility] ER Study: CTA Chest W/WO Contrast Date of Exam: 02/07/24 Exam# [id number] Ordering [place]: [place] [id number] STUDY: CTA CHEST REASON FOR EXAM: Male, [...] Alpa Jeffries DO; Dr. Shayne Zaidi MD Barratte Operator: Signed Normal [facility] Chest 1 View (Portable)on Chest 1 View (Portable) [facility] Imaging Services [address] [place] [address] Chest 1 View (Portable) MR#: [id number] Acct: [id number] Name: TYLOR PEDERSEN Rep #: [id number] : 1940 M 83 From: Uriel Moody PCP: Dr. Shayne Zaidi MD Status: PRE ER Study: Chest 1 View (Portable) Date of Exam: 02/07/24 Exam# [id number] Ordering Dr: Provider,[place] P. [id number] INDICATION: COUGH EXAMINATION/TECHNIQUE: X-RAY - XR Chest [...] Dr. Shayne Zaidi MD; ED PHYSICIAN PROVIDER Barratte Operator: Signed Normal [facility] Emergency Department Summary on 02-07-2024 Emergency Department Summary [facility] Medical Records Department [address] [place] [address] Emergency Department Summary 02/07/24 MR#: [id number] Acct: [id number] Name: TYLOR PEDERSEN Rep #: [id number] : 1940 83 From: Alpa Jeffries DO [...] other complaints or concerns at this time. [facility] Medical History Atherosclerosis of coronary artery of chilkat heart without angina pectoris Prostate CA Stroke [...] myalgias Integumen (more content not included)... Normal [facility] M100.678on 02-07-2024 M100.678 Pending SARS-CoV-2 (COVID 19) Negative INFLUENZA A Negative INFLUENZA B Negative RSV PCR Negative Normal [facility] Comment on above: Performed By: #### L 501.9985 #### [facility] [address] [place], [place], [id number] Urinalysis, Completeon 02-06 BACTERIA RARE Normal None Seen [facility] Comment on above: Order Comment: COLLE CTOR TO SPECIFY Performed By: #### L 500.4100, L503.7505, L300.8000, L500.4050, L100.0100, L503.0106, L506.0200, L501.5200, L501.4021, L300.3900, L501.2300, L501.9520 #### [facility] [address] [place], [place], [address] EPI,SQUAMOUS 0-5 SEEN Normal 0-5 [facility] Comment on above: Order Comment: COLLE CTOR TO SPECIFY Performed By: #### L 500.4100, L503.7505, L300.8000, L500.4050, L100.0100, L503.0106, L506.0200, L501.5200, L501.4021, L300.3900, L501.2300, L501.9520 #### [facility] [address] [place], [place], [id number] Mucus Ql (Urine sed) RARE Normal [facility] Comment on above: Order Comment: COLLE CTOR TO SPECIFY Performed By: #### L 500.4100, L503.7505, L300.8000, L500.4050, L100.0100, L503.0106, L506.0200, L501.5200, L501.4021, L300.3900, L501.2300, L501.9520 #### [facility] [address] [place], [place], [id number] WBC 5-10 SEEN Normal 0-5 [facility] Comment on above: Order Comment: COLLE CTOR TO SPECIFY Performed By: #### L 500.4100, L503.7505, L300.8000, L500.4050, L100.0100, L503.0106, L506.0200, L501.5200, L501.4021, L300.3900, L501.2300, L501.9520 #### [facility] [address] [place], [place], [id number] RBC 0 SEEN Normal 0-5 [facility] Comment on above: Order Comment: COLLE CTOR TO SPECIFY Performed By: #### L 500.4100, L503.7505, L300.8000, L500.4050, L100.0100, L503.0106, L506.0200, L501.5200, L501.4021, L300.3900, L501.2300, L501.9520 #### [facility] [address] [facility] [place], [place], [id number] [facility] Telephone (ELIZABETH) TYLOR PEDERSEN ([id number]) 1940 M Date Time Provider Department 12/21/23 PADDY ZAIDI During your visit today, we recorded the following information about you: Ge Will LPN 12/21/2023 3:29 PM Signed Received annual oxygen rx from [facility]. Placed in provider's inbox for review. 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 Cerebrovascular accident (CVA) (HCC) [I63.9] 12/23/2021 [...] Status:Closed by GE WILL on 12/21/23 Normal [facility] Absolute lymphocyte countOrd ered By: Parker Metzger on 03-15-2023 Lymphocytes Auto (Unsp spec) [#/Vol] 0.80 10*3/uL 0.83-4.51 [facility] Automated lymphocyte count a s percentage of total leukocytesOrdered By: Parker Metzger on 03-15-2023 Lymphocytes/100 WBC Auto (Unsp spec) 8.8 % 19-41 [facility] Basophil percentageOrdered B y: Parker Metzger on 03-15-2023 Basophils/100 WBC (Bld) 0.7 % 0-1 [facility] Bilirubin [Mass/Vol] 0.60 mg/dL 0.20-1.00 [facility] Comment on above: For patients on eltr ombopag therapy, use of Dimension [place] TBIL is not recommended. Chloride [Moles/Vol] 107 mmol/L 98-107 [facility] Eosinophils/100 WBC (Bld) 2.1 % 0-5 [facility] Glucose [Mass/Vol] 110 mg/dL 74-106 [facility] Comment on above: Fasting Glucose resu lt from 100 to 125 mg/dL suggests IMPAIRED HOMEOSTASIS per A.D.A. criteria. Hemoglobin (Bld) [Mass/Vol] 13.1 g/dL 13.0-16.5 [facility] Lactate [Moles/Vol] 1.7 mmol/L 0.4-2.0 [facility] Monocytes/100 WBC (Bld) 6.8 % 0-10 [facility] Neutrophils (Bld) [#/Vol] 7.4 10*3/uL 2.0-7.7 [facility] Neutrophils/100 WBC (Bld) 80.9 % 47-70 [facility] Potassium [Moles/Vol] 4.0 mmol/L 3.5-5.1 [facility] Protein [Mass/Vol] 7.0 g/dL 6.4-8.2 [facility] Sodium [Moles/Vol] 137 mmol/L 136-145 [facility] WBC (Bld) [#/Vol] 9.1 10*3/uL 4.4-11.0 [facility] Determination of erythrocyte mean corpuscular volume (MCV)Ordered By: Parkeramira Metzger on 03-15-2023 MCV (RBC) [Entitic vol] 100.0 fL 80-94 [facility] Erythrocyte distribution wid th ratioOrdered By: Parkeramira Metzger on 03-15-2023 Erythrocyte distribution width (RBC) [Ratio] 13.2 % 11.6-14.6 [facility] Erythrocyte distribution wid th standard deviationOrdered By: Parkeramira Metzger on 03-15-2023 Erythrocyte distribution width (RBC) [Entitic vol] 48.4 fL 35.1-43.9 [facility] Hematocrit Auto (Bld) [Volum e fraction]Ordered By: Parkeramira Metzger on 03-15-2023 Hematocrit (Bld) [Volume fraction] 42.9 % 40-54 [facility] Immature granulocytes/100 WB C Auto (Bld)Ordered By: [facility] on 03-15-2023 Immature granulocytes/100 WBC (Bld) 0.700 % 0.0-0.9 [facility] Comment on above: IG% - Immature Granu locytes (promyelocytes, myelocytes and metamyelocytes) > 1% indicates that a LEFT SHIFT is Present. Laboratory - Chemistry and C hemistry - challengeOrdered By: [facility] on 03-15-2023 Albumin/Globulin [Mass ratio] 1.0 {ratio} 0.9-2.4 [facility] ALP [Catalytic activity/Vol] 116 U/L 45-117 [facility] ALT [Catalytic activity/Vol] 20 U/L 16-61 [facility] CO2 [Moles/Vol] 28.0 mmol/L 21.0-32.0 [facility] Globulin (S) [Mass/Vol] 3.5 g/dL 2.2-4.2 [facility] Urea nitrogen/Creatinine [Mass ratio] 28.5 mg/mg 10-20 [facility] Laboratory - Hematology and Cell countsOrdered By: Parkeramira Metzger on 03-15-2023 MCH (RBC) [Entitic mass] 30.5 pg 27.0-32.0 [facility] MCHC (RBC) [Mass/Vol] 30.5 g/dL 32-36 [facility] Nucleated RBC/100 WBC (Bld) [Ratio] 0 % 0-5 [facility] Platelet mean volume (Bld) [Entitic vol] 9.9 fL 6.2-12.0 [facility] Platelets (Bld) [#/Vol] 135 10*3/uL 150-450 [facility] Laboratory - Microbiology an d Antimicrobial susceptibilityOrdered By: Parkeramira Metzger on 03-15-2023 SARS-CoV-2 (COVID-19) RNA NIURKA+probe Ql (Unsp spec) [facility] No Panel InformationOrdered By: Parker Metzger on 03-15-2023 Estimated Creatinine Clearance Calc 83.26 ml/min [facility] Estimated GFR (MDRD) Amer 131 mL/min >60 [facility] Comment on above: GFR Calc Estimated GFR (MDRD) Non-Af Amer 108 mL/min >60 [facility] Comment on above: Non- GFR Calc RBC Auto (Bld) [#/Vol]Ordere d By: Parker Metzger on 03-15-2023 RBC (Bld) [#/Vol] 4.29 10*6/uL 4.6-6.2 [facility] Serum or plasma calcium regan urement (mass/volume)Ordered By: Parker Metzger on 03-15-2023 Calcium [Mass/Vol] 8.6 mg/dL 8.5-10.1 [facility] Serum or plasma creatinine m easurement (mass/volume)Ordered By: Parker Metzger on 03-15-2023 Creatinine [Mass/Vol] 0.74 mg/dL 0.70-1.30 [facility] Comment on above: The validity of the calculated GFR & GFRAA in patients over 70 years has not been determined. Clinical correlation is essential. Serum or plasma urea nitroge n measurement (mass/volume)Ordered By: Parker Metzger on 03-15-2023 Urea nitrogen [Mass/Vol] 21 mg/dL 7-18 [facility] Thin prep Papanicolaou smear with manual screeningOrdered By: Parker Metzger on 03-15-2023 Thin prep Papanicolaou smear with manual screening 3.5 g/dL 3.2-5.0 [facility] Thin prep Papanicolaou smear with manual screening 11 U/L 15-37 [facility] Thin prep Papanicolaou smear with manual screening 2 5-15 [facility] XR Chest PA and Lateralon IMPRESSION: New atelectasis and/or early infiltrate in the right middle lobe. 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 Follow-up to document resolution Barratte Operator: PSCB Transcribe Date/Time: May 24 2022 1:40P Dictated by : SATISH PATEL MD This examination was interpreted and the report reviewed and electronically signed by: SATISH PATEL MD on May 24 2022 1:46PM EST [facility] XR Chest PA and LateralOrder ed By: Ccf Provider on 05-24-2022 [facility] Comprehensive metabolic 2000 panelon 05-22-2022 Albumin [Mass/Vol] 4.2 g/dL 3.9 - 4.9 g/dL [facility] ALP [Catalytic activity/Vol] 120 U/L High 38 - 113 U/L [facility] ALT [Catalytic activity/Vol] 9 U/L Low 10 - 54 U/L [facility] Anion gap [Moles/Vol] 12 mmol/L 9 - 18 mmol/L [facility] AST [Catalytic activity/Vol] 17 U/L 14 - 40 U/L [facility] Bilirubin [Mass/Vol] 1.1 mg/dL 0.2 - 1 .3 mg/dL [facility] Calcium [Mass/Vol] 10.0 mg/dL 8.5 - 10. 2 mg/dL [facility] Chloride [Moles/Vol] 102 mmol/L 97 - 10 5 mmol/L [facility] CO2 [Moles/Vol] 28 mmol/L 22 - 30 mmol/L [facility] Creatinine [Mass/Vol] 0.83 mg/dL 0.73 - 1.22 mg/dL [facility] Estimated Glomerular Filtration Rate 87 mL/min/1.73m >=60 mL/min/1.73m [facility] Glucose [Mass/Vol] 119 mg/dL High 74 - 99 mg/dL [facility] Potassium [Moles/Vol] 4.8 mmol/L 3.7 - 5.1 mmol/L [facility] Protein [Mass/Vol] 7.3 g/dL 6.3 - 8.0 g/dL [facility] Sodium [Moles/Vol] 142 mmol/L 136 - 144 mmol/L [facility] Urea nitrogen [Mass/Vol] 26 mg/dL High 9 - 24 mg/d L [facility] Lipid 1996 panelon Cholesterol [Mass/Vol] 115 mg/dL <200 mg/dL Cl [facility] Cholesterol in HDL [Mass/Vol] 39 mg/dL Low >39 mg/dL [facility] Cholesterol in LDL [Mass/Vol] 60 mg/dL <100 mg/dL [facility] Cholesterol in LDL/Cholesterol in HDL [Mass ratio] 1.54 {ratio} <2.54 [facility] Cholesterol in VLDL [Mass/Vol] 16 mg/dL <30 mg/dL [facility] Cholesterol non HDL [Mass/Vol] 76 mg/dL <130 mg/dL [facility] Cholesterol.total/Choles terol in HDL [Mass ratio] 2.95 {ratio} <5.10 [facility] Fasting Time 0 hrs [facility] Triglyceride [Mass/Vol] 80 mg/dL <150 mg/dL C [facility] TSH BLDon 05-22-2022 TSH Qn 1.440 m[IU]/L 0.270 - 4.200 mIU/L [facility] XR Chest PA and Lateralon Radiology Study observation (narrative) [facility] CBC panel Auto (Bld)on 05-21 Erythrocyte distribution width (RBC) [Ratio] 13.4 % 11.5 - 15.0 % [facility] Hematocrit (Bld) [Volume fraction] 50.5 % 39.0 - 51.0 % [facility] Hemoglobin (Bld) [Mass/Vol] 15.9 g/dL 13.0 - 17.0 g/dL [facility] MCH (RBC) [Entitic mass] 30.3 pg 26. 0 - 34.0 pg [facility] MCHC (RBC) [Mass/Vol] 31.5 g/dL 30.5 - 36.0 g/dL [facility] MCV (RBC) [Entitic vol] 96.4 fL 80.0 - 100.0 fL [facility] Nucleated RBC (Bld) [#/Vol] <0.01 k/uL [facility] Platelet mean volume (Bld) [Entitic vol] 10.2 fL 9.0 - 12.7 fL [facility] Platelets (Bld) [#/Vol] 166 10*3/uL 150 - 400 k/uL [facility] RBC (Bld) [#/Vol] 5.24 10*6/uL 4.20 - 6.0 0 m/uL [facility] WBC (Bld) [#/Vol] 9.40 10*3/uL 3.70 - 11. 00 k/uL [facility] Absolute lymphocyte counton 12-18-2021 Lymphocytes Auto (Unsp spec) [#/Vol] 0.33 10*3/uL 0.83-4.51 [facility] Work Phone: Basophil percentageon 2021 Basophils/100 WBC (Bld) 0.1 % 0-1 [facility] Work Phone: Bilirubin [Mass/Vol] 0.50 mg/dL 0.20-1.00 [facility] Work Phone: Comment on above: For patients on eltr ombopag therapy, use of Dimension [place] TBIL is not recommended. Chloride [Moles/Vol] 101 mmol/L 98-107 [facility] Work Phone: Eosinophils/100 WBC (Bld) 0.0 % 0-5 [facility] Work Phone: [phone] Glucose [Mass/Vol] 173 mg/dL 74-106 [facility] Work Phone: Comment on above: Fasting Glucose resu lt greater than or equal to 126 mg/dL suggests DIABETES MELLITUS per A.D.A. criteria. Neutrophils (Bld) [#/Vol] 13.8 10*3/uL 2.0-7.7 [facility] Work Phone: Neutrophils/100 WBC (Bld) 92.7 % 47-70 [facility] Work Phone: [phone] Potassium [Moles/Vol] 4.1 mmol/L 3.5-5.1 [facility] Work Phone: Protein [Mass/Vol] 6.9 g/dL 6.4-8.2 [facility] Work Phone: Sodium [Moles/Vol] 138 mmol/L 136-145 [facility] Work Phone: WBC (Bld) [#/Vol] 14.9 10*3/uL 4.4-11.0 [facility] Work Phone: Blood erythrocytes count (nu mber/volume)on 12-18-2021 RBC (Bld) [#/Vol] 4.57 10*6/uL 4.6-6.[facility]: Blood hemoglobin measurement (mass/volume)on 12-18-2021 Hemoglobin (Bld) [Mass/Vol] 14.3 g/dL 13.0-16.5 [facility] Work Phone: Blood lymphocytes/100 leukoc yteson 12-18-2021 Lymphocytes/100 WBC (Bld) 2.2 % 19-41 [facility] Work Phone: Blood monocytes/100 leukocyt eson 12-18-2021 Monocytes/100 WBC (Bld) 4.1 % 0-10 [facility] Work Phone: Blood platelet mean volumeon 12-18-2021 Platelet mean volume (Bld) [Entitic vol] 8.6 fL 6.2-12.0 [facility] Work Phone: Determination of erythrocyte mean corpuscular volume (MCV)on 12-18-2021 MCV (RBC) [Entitic vol] 94.1 fL 80-94 [facility] Work Phone: Hematocrit Auto (Bld) [Volum e fraction]on 12-18-2021 Hematocrit (Bld) [Volume fraction] 43.0 % 40-54 [facility] Work Phone: Laboratory - Chemistry and C hemistry - challengeon 12-18-2021 ALP [Catalytic activity/Vol] 155 U/L 45-117 [facility] Work Phone: ALT [Catalytic activity/Vol] 267 U/L 16-61 [facility] Work Phone: CO2 [Moles/Vol] 32.0 mmol/L 21.0-32.0 [facility] Work Phone: Globulin (S) [Mass/Vol] 4.3 g/dL 2.2-4.2 [facility] Work Phone: Urea nitrogen/Creatinine [Mass ratio] 60.2 mg/mg 10-20 [facility] Work Phone: Laboratory - Hematology and Cell countson 12-18-2021 Erythrocyte distribution width (RBC) [Entitic vol] 44.7 fL 35.1-43.9 [facility] Work Phone: Erythrocyte distribution width (RBC) [Ratio] 13.0 % 11.6-14.6 [facility] Work Phone: Immature granulocytes/100 WBC (Bld) 0.900 % 0.0-0.9 [facility] Work Phone: Comment on above: IG% - Immature Granu locytes (promyelocytes, myelocytes and metamyelocytes) > 1% indicates that a LEFT SHIFT is Present. MCH (RBC) [Entitic mass] 31.3 pg 27.0-32.0 [facility] Work Phone: Nucleated RBC/100 WBC (Bld) [Ratio] 0 % 0-5 [facility] Work Phone: MCHC Auto (RBC) [Mass/Vol]on 12-18-2021 MCHC (RBC) [Mass/Vol] 33.3 g/dL 32-36 [facility] Work Phone: No Panel Informationon 12-18 Estimated Creatinine Clearance Calc 60.66 ml/min [facility] Work Phone: Estimated GFR (MDRD) Amer 166 mL/min >60 [facility] Work Phone: Comment on above: GFR Calc Estimated GFR (MDRD) Non-Af Amer 138 mL/min >60 [facility] Work Phone: Comment on above: Non- GFR Calc Platelets bldon 12-18-2021 Platelets (Bld) [#/Vol] 226 10*3/uL 150-450 [facility] Work Phone: Serum or plasma albumin regan urement (mass/volume)on 12-18-2021 Albumin [Mass/Vol] 2.6 g/dL 3.2-5.0 [facility] Work Phone: Serum or plasma albumin/glob ulin mass ratioon 12-18-2021 Albumin/Globulin [Mass ratio] 0.6 {ratio} 0.9-2.4 [facility] Work Phone: Serum or [...] 12-18-2021 Urea nitrogen [Mass/Vol] 36 mg/dL 7-18 [facility] Work Phone: Thin prep Papanicolaou smear with manual screeningon 12-18-2021 Thin prep Papanicolaou smear with manual screening 138 U/L 15-37 [facility] Work Phone: Thin prep Papanicolaou smear with manual screening 5 5-15 [facility] Work Phone: Blood manual differential co mment interpretation (narrative result)on 12-15-2021 Manual differential comment Afshin (Bld) [Interp] SCANNED [facility] Work Phone: Laboratory - Chemistry and C hemistry - challengeon 12-15-2021 Natriuretic peptide B (Bld) [Mass/Vol] 163.1 pg/mL 0-100 [facility] Work Phone: No Panel Informationon 12-15 Thyroid Stimulating Hormone (TSH) 0.52 uIU/mL 0.358-3.74 [facility] Work Phone: Absolute lymphocyte counton 12-14-2021 Lymphocytes Auto (Unsp spec) [#/Vol] 0.43 10*3/uL 0.83-4.51 [facility] Work Phone: Basophil percentageon 2021 Basophils/100 WBC (Bld) 0.2 % 0-1 [facility] Work Phone: [phone] Chloride [Moles/Vol] 101 mmol/L 98-107 [facility]: Eosinophils/100 WBC (Bld) 0.0 % 0-5 [facility] Work Phone: [phone] Glucose [Mass/Vol] 108 mg/dL 74-106 [facility] Work Phone: Comment on above: Fasting Glucose resu lt from 100 to 125 mg/dL suggests IMPAIRED HOMEOSTASIS per A.D.A. criteria. Neutrophils (Bld) [#/Vol] 14.8 10*3/uL 2.0-7.7 [facility] Work Phone: [phone] Neutrophils/100 WBC (Bld) 90.8 % 47-70 [facility] Work Phone: [phone] Potassium [Moles/Vol] 4.1 mmol/L 3.5-5.1 [facility] Work Phone: [phone] Sodium [Moles/Vol] 135 mmol/L 136-145 [facility] Work Phone: WBC (Bld) [#/Vol] 16.3 10*3/uL 4.4-11.0 [facility] Work Phone: Blood erythrocytes count (nu mber/volume)on 12-14-2021 RBC (Bld) [#/Vol] 4.32 10*6/uL 4.6-6.2 [facility] Work Phone: Blood hemoglobin measurement (mass/volume)on 12-14-2021 Hemoglobin (Bld) [Mass/Vol] 13.3 g/dL 13.0-16.5 [facility] Work Phone: [phone] Blood lymphocytes/100 leukoc yteson 12-14-2021 Lymphocytes/100 WBC (Bld) 2.6 % 19-41 [facility] Work Phone: Blood monocytes/100 leukocyt eson 12-14-2021 Monocytes/100 WBC (Bld) 5.6 % 0-10 [facility] Work Phone: Blood platelet mean volumeon 12-14-2021 Platelet mean volume (Bld) [Entitic vol] 8.8 fL 6.2-12.0 [facility] Work Phone: Determination of erythrocyte mean corpuscular volume (MCV)on 12-14-2021 MCV (RBC) [Entitic vol] 95.1 fL 80-94 [facility] Work Phone: Hematocrit Auto (Bld) [Volum e fraction]on 12-14-2021 Hematocrit (Bld) [Volume fraction] 41.1 % 40-54 [facility] Work Phone: Laboratory - Chemistry and C hemistry - challengeon 12-14-2021 CO2 [Moles/Vol] 30.0 mmol/L 21.0-32.0 [facility] Work Phone: Urea nitrogen/Creatinine [Mass ratio] 37.1 mg/mg 10-20 [facility] Work Phone: Laboratory - Hematology and Cell countson 12-14-2021 Erythrocyte distribution width (RBC) [Entitic vol] 47.7 fL 35.1-43.9 [facility] Work Phone: Erythrocyte distribution width (RBC) [Ratio] 13.5 % 11.6-14.6 [facility] Work Phone: Immature granulocytes/100 WBC (Bld) 0.800 % 0.0-0.9 [facility] Work Phone: Comment on above: IG% - Immature Granu locytes (promyelocytes, myelocytes and metamyelocytes) > 1% indicates that a LEFT SHIFT is Present. MCH (RBC) [Entitic mass] 30.8 pg 27.0-32.0 [facility] Work Phone: Nucleated RBC/100 WBC (Bld) [Ratio] 0 % 0-5 [facility] Work Phone: MCHC Auto (RBC) [Mass/Vol]on 12-14-2021 MCHC (RBC) [Mass/Vol] 32.4 g/dL 32-36 [facility] Work Phone: No Panel Informationon 12-14 Troponin I High Sensitivity 343 pg/mL 3.0-78.0 [facility] Work Phone: Comment on above: Critical Result(s) C alled at: 22:53:05 12/14/2021 by: Shena Herrera. Results read back by same. Please Note: New Test Units and Gender Specific Reference Ranges. For more information see Policy Stat Procedure [place] High Sensitivity Troponin (TNIH) and attachments. D-Dimer Quantitative (PE/DVT) 1.54 FEU/ug/m 0.27-0.49 [facility] Work Phone: Comment on above: D-Dimer ELEVATED (>0 .49): Additional studies and clinicalassessments are indicated to conclude diagnosis of:Deep Vein Thrombosis (DVT) or Pulmonary Embolism (PE)CRITICAL VALUE VERIFIED. CALLED TO ROSCOE BRIZUELA12/14/21 190 Samson Walters.RESULTS READ BACK BY SAME . Estimated Creatinine Clearance Calc 62.53 ml/min [facility] Work Phone: Estimated GFR (MDRD) Amer 95 mL/min >60 [facility] Work Phone: Comment on above: GFR Calc Estimated GFR (MDRD) Non-Af Amer 79 mL/min >60 [facility] Work Phone: Comment on above: Non- GFR Calc Troponin I High Sensitivity 522 pg/mL 3.0-78.0 [facility] Work Phone: Comment on above: Critical Result(s) C alled at: 16:42:10 12/14/2021 by: Shena Muñiz. Results read back by same. Please Note: New Test Units and Gender Specific Reference Ranges. For more information see Policy Stat Procedure [place] High Sensitivity Troponin (TNIH) and attachments. Platelets bldon 12-14-2021 Platelets (Bld) [#/Vol] 199 10*3/uL 150-450 [facility] Work Phone: Serum or plasma calcium regan urement (mass/volume)on 12-14-2021 Calcium [Mass/Vol] 9.2 mg/dL 8.5-10.1 [facility] Work Phone: Serum or plasma creatinine m easurement (mass/volume)on 12-14-2021 Creatinine [Mass/Vol] 0.97 mg/dL 0.70-1.30 [facility] Work Phone: Comment on above: The validity of the calculated GFR & GFRAA in patients over 70 years has not been determined. Clinical correlation is essential. Serum or plasma urea nitroge n measurement (mass/volume)on 12-14-2021 Urea nitrogen [Mass/Vol] 36 mg/dL 7-18 [facility] Work Phone: Thin prep Papanicolaou smear with manual screeningon 12-14-2021 Thin prep Papanicolaou smear with manual screening 4 5-15 [facility] Work Phone: NM CARDIAC PERF STRESS/PHARM on 06-19-2018 NM CARDIAC PERF STRESS/PHARM * * *Final Report* * * DATE OF EXAM: Jun 19 2018 11:56AM JAZMIN 0006 - NM CARDIAC PERF STRESS/PHARM / PROCEDURE REASON: multiple diagnoses * * * * Physician Interpretation * * * * PATIENT: Name: TYLOR PEDERESN Age: 77 years Gender: M CONCLUSIONS: 1. [...] 60 minutes later. See administered doses below. [facility] Date of service: 06/19/2018 9:36:42 AM [...] normal sinus rhythm. Stress complications: none. Final [place] Operator: LAURA Transcribe Date/Time: Jun 19 2018 9:36A Dictated by : ROSALINO MURRAY DO This examination was interpreted and the report reviewed and electronically signed by: ROSALINO MURRAY DO on Jun 19 2018 4:55PM EST [id number] Normal [facility] NUCLEAR STRESS LEXISCAN (CAR D)on 06-19-2018 NUCLEAR STRESS LEXISCAN (CARD) NAME : TYLOR PEDERSEN PID : [id number] : 1940 Gender : Male Race : ORD : [id number] Procedure Date : Jun 19 2018 10:44:58 [...] Protocol Test Reason : [facility] Overread By : ROSALINO MURRAY D.O. Edited By : Shraddha Cha Referred By : SHAYNE CEDEÑO Acquired by : Shraddha Cha [facility] 06-16-2018 CNPN Telephone (CDLBME) PEDERSEN,JOHN Rukhsana ([id number]) 1940 M Date Time Provider Department 06/16/18 [...] Fully Assessed Reason for Visit: Reminder Call [[id number]] Prescriptions as of 06/16/2018 Sig: POTASSIUM CHLORIDE [...] Encounter Status:Closed by NATALIA LIZ on 06/16/[address] [facility] COVID-19 virus antigen assay SARS-CoV-2 (COVID-19) Ag IA.rapid Ql (Resp) [facility] Work Phone: Legionella pneumophila ag Legionella Antigen Legionella Antigen [facility] Work Phone: No Panel Information Streptococcus pneumoniae Antigen (M [facility] Work Phone: Vital Signs Date Time Vital Sign Value Performing Clinician Facility 09-25-2024 11:09-0400 Body height 177.8 cm Paddy Zaidi MD Work Phone: [facility] 09-25-2024 11:09-0400 Diastolic blood pressure 71 mm[Hg] Paddy Zaidi MD Work Phone: [facility] 09-25-2024 11:09-0400 Heart rate 99 /min Paddy Zaidi MD Work Phone: [facility] 09-25-2024 11:09-0400 SaO2% (BldA) [Mass fraction] 99 % Paddy Zaidi MD Work Phone: [facility] 09-25-2024 11:09-0400 Systolic blood pressure 110 mm[Hg] Paddy Zaidi MD Work Phone: [facility] 09-19-2024 09:21-0400 Body temperature 98.5 [degF] Dr. Shayne Zaidi MD Work Phone: [facility] 09-19-2024 09:21-0400 Diastolic blood pressure 62 mm[Hg] Dr. Shayne Zaidi MD Work Phone: [facility] 09-19-2024 09:21-0400 Heart rate 103 /min Dr. Shayne Zaidi MD Work Phone: [facility] 09-19-2024 09:21-0400 Inhaled oxygen flow rate 3 L/min Dr. Shayne Zaidi MD Work Phone: [facility] 09-19-2024 09:21-0400 Respiratory rate 16 /min Dr. Shayne Zaidi MD Work Phone: [facility] 09-19-2024 09:21-0400 SaO2% (BldA) [Mass fraction] 98 % Dr. Shayne Zaidi MD Work Phone: [facility] 09-19-2024 09:21-0400 Systolic blood pressure 108 mm[Hg] Dr. Shayne Zaidi MD Work Phone: [facility] 09-19-2024 03:23-0400 Body mass index (BMI) [Ratio] 28.3 kg/m2 Dr. Shayne Zaidi MD Work Phone: [facility] 09-19-2024 03:23-0400 Body weight [address] Shayne Zaidi MD Work Phone: [facility] 09-17-2024 12:46-0400 Body height 180.[address] Shayne Zaidi MD Work Phone: [facility] 09-16-2024 21:00-0400 Body temperature 98.3 [degF] Dr. Shayne Zaidi MD Work Phone: [facility] 09-16-2024 21:00-0400 Diastolic blood pressure 72 mm[Hg] Dr. Shayne Zaidi MD Work Phone: [facility] 09-16-2024 21:00-0400 Heart rate 100 /min Dr. Shayne Zaidi MD Work Phone: [facility] 09-16-2024 21:00-0400 Respiratory rate 20 /min Dr. Shayne Zaidi MD Work Phone: [facility] 09-16-2024 21:00-0400 SaO2% (BldA) [Mass fraction] 98 % Dr. Shayne Zaidi MD Work Phone: [facility] 09-16-2024 21:00-0400 Systolic blood pressure 149 mm[Hg] Dr. Shayne Zaidi MD Work Phone: [facility] 09-16-2024 18:31-0400 Inhaled oxygen flow rate 2 L/min Dr. Shayne Zaidi MD Work Phone: [facility] 09-16-2024 18:21-0400 Body height 180.[address] Shayne Zaidi MD Work Phone: [facility] 09-16-2024 18:21-0400 Body mass index (BMI) [Ratio] 30 kg/m2 Dr. Shayne Zaidi MD Work Phone: [facility] 09-16-2024 18:21-0400 Body weight 97.[address] Shayne Zaidi MD Work Phone: [facility] 09-12-2024 15:56-0400 Body temperature 97.8 [degF] Dr. Shayne Zaidi MD Work Phone: [facility] 09-12-2024 15:56-0400 Diastolic blood pressure 86 mm[Hg] Dr. Shayne Zaidi MD Work Phone: [facility] 09-12-2024 15:56-0400 Heart rate 102 /min Dr. Sahyne Zaidi MD Work Phone: [facility] 09-12-2024 15:56-0400 Inhaled oxygen flow rate 3 L/min Dr. Shayne Zaidi MD Work Phone: [facility] 09-12-2024 15:56-0400 Respiratory rate 18 /min Dr. Shayne Zaidi MD Work Phone: [facility] 09-12-2024 15:56-0400 SaO2% (BldA) [Mass fraction] 96 % Dr. Shayne Zaidi MD Work Phone: [facility] 09-12-2024 15:56-0400 Systolic blood pressure 142 mm[Hg] Dr. Shayne Zaidi MD Work Phone: [facility] 09-12-2024 06:00-0400 Body mass index (BMI) [Ratio] 28.1 kg/m2 Dr. Shayne Zaidi MD Work Phone: [facility] 09-12-2024 06:00-0400 Body weight 91.[address] Shayne Zaidi MD Work Phone: [facility] 09-10-2024 14:33-0400 Body height 180.[address] Shayne Zaidi MD Work Phone: [facility] 07-13-2024 16:53-0400 Diastolic blood pressure 76 mm[Hg] Paddy Zaidi MD Work Phone: [facility] 07-13-2024 16:53-0400 Heart rate 98 /min Paddy Zaidi MD Work Phone: [facility] 07-13-2024 16:53-0400 Systolic blood pressure 125 mm[Hg] Paddy Zaidi MD Work Phone: [facility] 03-27-2024 13:52-0500 Diastolic blood pressure 80 mm[Hg] Trey Smith APRN.CNP Work Phone: [facility] 03-27-2024 13:52-0500 Heart rate 90 /min Trey Click CARDIOTHORACIC ICU RN.DRAMATIC CRITIC Work Phone: [facility] 03-27-2024 13:52-0500 Respiratory rate 18 /min Trey Click CARDIOTHORACIC ICU RN.DRAMATIC CRITIC Work Phone: [facility] 03-27-2024 13:52-0500 SaO2% (BldA) [Mass fraction] 95 % Trey Click CARDIOTHORACIC ICU RN.DRAMATIC CRITIC Work Phone: [facility] 03-27-2024 13:52-0500 Systolic blood pressure 122 mm[Hg] Trey Click CARDIOTHORACIC ICU RN.DRAMATIC CRITIC Work Phone: [facility] 03-27-2024 13:47-0500 Heart rate 107 /min Pulm Wstr Work Phone: [facility] 03-27-2024 13:47-0500 SaO2% (BldA) [Mass fraction] 96 % Pulm Wstr Work Phone: [facility] Comment on above: RA resting 03-05-2024 15:07-0500 Body height 171.5 cm Burton Huynh MD Work Phone: [facility] 03-05-2024 15:07-0500 Body mass index (BMI) [Ratio] 32.69 kg/m2 Burton Huynh MD Work Phone: [facility] 03-05-2024 15:07-0500 Body weight 96.16 kg Burton Huynh MD Work Phone: [facility] 03-05-2024 15:07-0500 Diastolic blood pressure 68 mm[Hg] Burton Huynh MD Work Phone: [facility] 03-05-2024 15:07-0500 Heart rate 112 /min Burton Huynh MD Work Phone: [facility] 03-05-2024 15:07-0500 Respiratory rate 14 /min Burton Huynh MD Work Phone: [facility] 03-05-2024 15:07-0500 SaO2% (BldA) [Mass fraction] 96 % Burton Huynh MD Work Phone: [facility] 03-05-2024 15:07-0500 Systolic blood pressure 122 mm[Hg] Burton Huynh MD Work Phone: [facility] 03-05-2024 14:42-0500 Body height 171.5 cm Pulm Wstr Work Phone: [facility] 03-05-2024 14:42-0500 Body mass index (BMI) [Ratio] 32.69 kg/m2 Pulm Wstr Work Phone: [facility] 03-05-2024 14:42-0500 Body weight 96.16 kg Pulm Wstr Work Phone: [facility] 03-05-2024 14:42-0500 Heart rate 112 /min Pulm Wstr Work Phone: [facility] 03-05-2024 14:42-0500 Respiratory rate 14 /min Pulm Wstr Work Phone: [facility] 03-05-2024 14:42-0500 SaO2% (BldA) [Mass fraction] 96 % Pulm Wstr Work Phone: [facility] Comment on above: 2L pulse dose 02-14-2024 14:06-0500 Diastolic blood pressure 78 mm[Hg] Hever Tanya CARDIOTHORACIC ICU RN.DRAMATIC CRITIC Work Phone: [facility] 02-14-2024 14:06-0500 Heart rate 96 /min Hever Tanya CARDIOTHORACIC ICU RN.DRAMATIC CRITIC Work Phone: [facility] 02-14-2024 14:06-0500 Systolic blood pressure 132 mm[Hg] Hever Tanya CARDIOTHORACIC ICU RN.DRAMATIC CRITIC Work Phone: [facility] 06-07-2023 16:30-0400 Body height 180.3 cm Paddy Zaidi MD Work Phone: [facility] 06-07-2023 16:30-0400 Body mass index (BMI) [Ratio] 30.15 kg/m2 Paddy Zaidi MD Work Phone: [facility] 06-07-2023 16:30-0400 Body weight 98 kg Paddy Zaidi MD Work Phone: [facility] 06-07-2023 16:30-0400 Diastolic blood pressure 80 mm[Hg] Paddy Zaidi MD Work Phone: [facility] 06-07-2023 16:30-0400 Heart rate 82 /min Paddy Zaidi MD Work Phone: [facility] 06-07-2023 16:30-0400 SaO2% (BldA) [Mass fraction] 95 % Paddy Zaidi MD Work Phone: [facility] 06-07-2023 16:30-0400 Systolic blood pressure 138 mm[Hg] Paddy Zaidi MD Work Phone: [facility] 03-15-2023 15:52-0500 Diastolic blood pressure 100 mm[Hg] [facility] 03-15-2023 15:52-0500 Heart rate 106 /min [facility] 03-15-2023 15:52-0500 Respiratory rate 22 /min [facility] 03-15-2023 15:52-0500 SaO2% (BldA) [Mass fraction] 95 % [facility] 03-15-2023 15:52-0500 Systolic blood pressure 159 mm[Hg] [facility] 03-15-2023 14:10-0500 Body mass index (BMI) [Ratio] 29.9 kg/m2 [facility] 03-15-2023 14:10-0500 Body weight 97.4 kg [facility] 03-15-2023 13:17-0500 Body height 180.34 cm [facility] 03-15-2023 13:17-0500 Body temperature 98.5 [degF] [facility] 09-22-2022 22:00-0400 Body mass index (BMI) [Ratio] 27.9 kg/m2 [facility] 09-22-2022 22:00-0400 Body weight 91 kg [facility] 09-22-2022 21:47-0400 Heart rate 69 /min [facility] 09-22-2022 21:47-0400 Respiratory rate 16 /min [facility] 09-22-2022 21:47-0400 SaO2% (BldA) [Mass fraction] 97 % [facility] 09-22-2022 18:34-0400 Body height 180.34 cm [facility] 09-22-2022 18:34-0400 Body temperature 97.3 [degF] [facility] 09-22-2022 18:34-0400 Diastolic blood pressure 65 mm[Hg] [facility] 09-22-2022 18:34-0400 Systolic blood pressure 149 mm[Hg] [facility] 06-02-2022 12:58-0400 Body height 180.3 cm Hever Pamela CARDIOTHORACIC ICU RN.DRAMATIC CRITIC Work Phone: [facility] 06-02-2022 12:58-0400 Body weight 92.99 kg Hever Pamela CARDIOTHORACIC ICU RN.DRAMATIC CRITIC Work Phone: [facility] 06-02-2022 12:58-0400 Diastolic blood pressure 68 mm[Hg] Hever Pamela CARDIOTHORACIC ICU RN.DRAMATIC CRITIC Work Phone: [facility] 06-02-2022 12:58-0400 Heart rate 84 /min Hever Pamela CARDIOTHORACIC ICU RN.DRAMATIC CRITIC Work Phone: [facility] 06-02-2022 12:58-0400 SaO2% (BldA) [Mass fraction] 97 % Hever Pamela CARDIOTHORACIC ICU RN.DRAMATIC CRITIC Work Phone: [facility] 06-02-2022 12:58-0400 Systolic blood pressure 134 mm[Hg] Hever Pamela CARDIOTHORACIC ICU RN.DRAMATIC CRITIC Work Phone: [facility] 05-21-2022 16:12-0400 Body height 180.3 cm Paddy Zaidi MD Work Phone: [facility] 05-21-2022 16:12-0400 Body temperature 98.4 [degF] Paddy Zaidi MD Work Phone: [facility] 05-21-2022 16:12-0400 Body weight 88.22 kg Paddy Zaidi MD Work Phone: [facility] 05-21-2022 16:12-0400 Diastolic blood pressure 83 mm[Hg] Paddy Zaidi MD Work Phone: [facility] 05-21-2022 16:12-0400 Heart rate 71 /min Paddy Zaidi MD Work Phone: [facility] 05-21-2022 16:12-0400 Respiratory rate 16 /min Paddy Zaidi MD Work Phone: [facility] 05-21-2022 16:12-0400 SaO2% (BldA) [Mass fraction] 93 % Paddy Zaidi MD Work Phone: [facility] 05-21-2022 16:12-0400 Systolic blood pressure 137 mm[Hg] Paddy Zaidi MD Work Phone: [facility] 12-28-2021 09:17-0500 Body mass index (BMI) [Ratio] 27.8 kg/m2 Dr. Shayne Zaidi Work Phone: [facility] Work Phone: 12-28-2021 09:17-0500 Body temperature 97 [degF] Dr. Shayne Zaidi Work Phone: [facility] Work Phone: 12-28-2021 09:17-0500 Body weight 90.[address] Shayne Zaidi Work Phone: [facility] Work Phone: 12-28-2021 09:17-0500 Diastolic blood pressure 76 mm[Hg] Dr. Shayne Zaidi Work Phone: [facility] Work Phone: 12-28-2021 09:17-0500 Heart rate 72 /min Dr. Shayne Zaidi Work Phone: [facility] Work Phone: 12-28-2021 09:17-0500 Respiratory rate 18 /min Dr. Shayne Zaidi Work Phone: [facility] Work Phone: 12-28-2021 09:17-0500 SaO2% (BldA) [Mass fraction] 94 % Dr. Shayne Zaidi Work Phone: [facility] Work Phone: 12-28-2021 09:17-0500 Systolic blood pressure 140 mm[Hg] Dr. Shayne Zaidi Work Phone: [facility] Work Phone: 12-23-2021 11:19-0500 Body height 180.3 cm Paddy Zaidi MD Work Phone: [facility] [facility] 12-23-2021 11:19-0500 Body temperature 98.4 [degF] Paddy Zaidi MD Work Phone: [facility] 12-23-2021 11:19-0500 Body weight 87.09 kg Paddy Zaidi MD Work Phone: [facility] 12-23-2021 11:19-0500 Diastolic blood pressure 54 mm[Hg] Paddy Zaidi MD Work Phone: [facility] 12-23-2021 11:19-0500 Heart rate 87 /min Paddy Zaidi MD Work Phone: [facility] 12-23-2021 11:19-0500 SaO2% (BldA) [Mass fraction] 87 % Paddy Zaidi MD Work Phone: [facility] 12-23-2021 11:19-0500 Systolic blood pressure 91 mm[Hg] Paddy Zaidi MD Work Phone: [facility] 12-18-2021 15:00-0500 Heart rate 95 /min Dr. Shayne Zaidi Work Phone: [facility] Work Phone: 12-18-2021 14:55-0500 Body temperature 97.5 [degF] Dr. Shayne Zaidi Work Phone: [facility] Work Phone: 12-18-2021 14:55-0500 Diastolic blood pressure 88 mm[Hg] Dr. Shayne Zaidi Work Phone: [facility] Work Phone: 12-18-2021 14:55-0500 Inhaled oxygen flow rate 2 L/min Dr. Shayne Zaidi Work Phone: [facility] Work Phone: 12-18-2021 14:55-0500 Respiratory rate 16 /min Dr. Shayne Zaidi Work Phone: [facility] Work Phone: 12-18-2021 14:55-0500 SaO2% (BldA) [Mass fraction] 96 % Dr. Shayne Zaidi Work Phone: [facility] Work Phone: 12-18-2021 14:55-0500 Systolic blood pressure 128 mm[Hg] Dr. Shayne Zaidi Work Phone: [facility] Work Phone: 12-16-2021 15:05-0500 Body height 180.[address] Shayne Zaidi Work Phone: [facility] Work Phone: 12-16-2021 15:05-0500 Body weight 88.[address] Shayne Zaidi Work Phone: [facility] Work Phone: 12-14-2021 18:22-0500 Body mass index (BMI) [Ratio] 27.1 kg/m2 Dr. Shayne Zaidi Work Phone: [facility] Work Phone: 12-14-2021 17:51-0500 Diastolic blood pressure 84 mm[Hg] Dr. Shayne Zaidi Work Phone: [facility] Work Phone: 12-14-2021 17:51-0500 Heart rate 101 /min Dr. Shayne Zaidi Work Phone: [facility] Work Phone: 12-14-2021 17:51-0500 Inhaled oxygen flow rate 2 L/min Dr. Shayne Zaidi Work Phone: [facility] Work Phone: 12-14-2021 17:51-0500 Respiratory rate 28 /min Dr. Shayne Zaidi Work Phone: [facility] Work Phone: 12-14-2021 17:51-0500 SaO2% (BldA) [Mass fraction] 93 % Dr. Shayne Zaidi Work Phone: [facility] Work Phone: 12-14-2021 17:51-0500 Systolic blood pressure 142 mm[Hg] Dr. Shayne Zaidi Work Phone: [facility] Work Phone: 12-14-2021 17:05-0500 Body temperature 98.1 [degF] Dr. Shayne Zaidi Work Phone: [facility] Work Phone: 12-14-2021 15:17-0500 Body height 180.[address] Shayne Zaidi Work Phone: [facility] Work Phone: 12-14-2021 15:17-0500 Body mass index (BMI) [Ratio] 28.3 kg/m2 Dr. Shayne Zaidi Work Phone: [facility] Work Phone: 12-14-2021 15:17-0500 Body weight 92.[address] Shayne Zaidi Work Phone: [facility] Work Phone: 06-22-2021 13:25-0400 Diastolic blood pressure 80 mm[Hg] Hever Pamela CARDIOTHORACIC ICU RN.DRAMATIC CRITIC Work Phone: [facility] 06-22-2021 13:25-0400 Systolic blood pressure 138 mm[Hg] Hever Pamela CARDIOTHORACIC ICU RN.DRAMATIC CRITIC Work Phone: [facility] 06-22-2021 12:58-0400 Body height 180.3 cm Hever Pamela CARDIOTHORACIC ICU RN.DRAMATIC CRITIC Work Phone: [facility] 06-22-2021 12:58-0400 Body weight 88.36 kg Hever Pamela CARDIOTHORACIC ICU RN.DRAMATIC CRITIC Work Phone: [facility] 06-22-2021 12:58-0400 Heart rate 65 /min Hever Pamela CARDIOTHORACIC ICU RN.DRAMATIC CRITIC Work Phone: [facility] Encounters Encounter Date Encounter Type Care Provider Facility Start: 09-25-2024 End: 09-25-2024 Office outpatient visit 40 minutes Paddy Zaidi MD Work Phone: [facility] Comment on above: 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) (Primary Dx); Adjustment disorder with mixed anxiety and depressed mood; Atrial fibrillation with RVR (HCC); Aspiration pneumonia, unspecified aspiration pneumonia type, unspecified laterality, unspecified part of lung (HCC); Anxiety attack; Hypokalemia; correction current use of anticoagulant therapy Start: 09-25-2024 End: 09-25-2024 ambulatory PADDY ZAIDI Facility:[facility] Start: 09-20-2024 End: 09-20-2024 Telephone encounter Paddy Zaidi MD Work Phone: Family Practice Comment on above: Received Outside Med [facility] Records ([facility] Discharge summary 09/19/2024 Encephalopathy ) Start: 09-19-2024 ambulatory Shayne Zaidi Facility :[facility] Start: 09-19-2024 Non-patient / Non-visit Dr. Trevor Burton MD -[facility] Work Phone: Start: 09-18-2024 End: 09-18-2024 Telephone encounter Paddy Zaidi MD Work Phone: [facility] Comment on above: Received Outside Med ical Records ([facility] Neuro consult) Start: 09-18-2024 Non-patient / Non-visit Dr. Trevor Burton MD -[facility] Work Phone: Start: 09-17-2024 End: 09-17-2024 Telephone encounter Paddy Zaidi MD Work Phone: [facility] Comment on above: Received Outside Med ical Records ([facility] ED summary) Start: 09-17-2024 Non-patient / Non-visit Dr. Trevor Burton MD -[facility] Work Phone: Start: 09-16-2024 End: 09-19-2024 ambulatory Olivia Walters Facility:[facility] Start: 09-16-2024 End: 09-19-2024 Evaluation and management of inpatient Dr. Olivia Walters MD -[facility] Work Phone: Start: 09-16-2024 End: 09-19-[address] Shayne Zaidi MD Work Phone: -[facility] Start: 09-12-2024 Non-patient / Non-visit Dr. Aayush Mills DO [facility] Work Phone: Start: 09-11-2024 Non-patient / Non-visit Dr. Aayush Mills [facility] Work Phone: Start: 09-11-2024 Non-patient / [facility] Start: 09-10-2024 End: 09-10-2024 ambulatory Sera Kline RN [employer] Comment on above: MURIEL BENITES RN ( ED Utilization review per request of payor - [employer]) Start: 09-10-2024 Non-patient / Non-visit Dr. Haynes Of rudy JONESYolandaSilvia Start: 09-10-2024 ambulatory Shayne Zaidi Facility :[facility] Start: 09-10-2024 End: 09-12-2024 Evaluation and management of inpatient Dr. Aayush Sibley DO -[facility] Care Unit Work Phone: Start: 09-09-2024 End: 09-09-2024 Emergency department patient visit TYLOR NG Facility:[facility] Start: 09-08-2024 End: 09-08-2024 ambulatory Yudelka Harris RN NURSE COAGULATING OPERATOR Comment on above: Patient Update Start: 09-05-2024 End: 09-05-2024 Telephone encounter Sudha Noe MD Work Phone: Cardiology Comment on above: Appointment Start: 08-14-2024 End: 08-14-2024 Refill Paddy Zaidi MD Work Phone: [facility] Comment on above: Refill Request Start: 07-23-2024 End: 07-23-2024 Refill Hever Martínez APRN.DRAMATIC CRITIC Work Phone: [facility] Comment on above: Refill Request Start: 07-13-2024 End: 07-13-2024 ambulatory PADDY ZAIDI Facility:[facility] Start: 07-13-2024 End: 07-13-2024 Office outpatient visit 25 minutes Paddy Zaidi MD Work Phone: 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 Comment on above: Refill Request Start: 07-03-2024 End: 09-02-2024 Follow-up encounter Hever Martínez APRN.DRAMATIC CRITIC Work Phone: [facility] Start: 06-29-2024 End: 06-29-2024 ambulatory HEVER MARTÍNEZ Facility:[facility] Start: 06-29-2024 End: 08-29-2024 Follow-up encounter Georgiana Valdivia APRN.DRAMATIC CRITIC [facility] Comment on above: Results Start: 06-29-2024 End: 06-29-2024 ambulatory TREY SMITH Facility:[facility] Start: 06-18-2024 End: 06-18-2024 ambulatory Matthew Stallworth RN Work Phone: [employer] Comment on above: Population Health Na vigation Outreach ([employer] ) Start: 06-16-2024 End: 06-19-2024 Refill Hever Martínez APRN.DRAMATIC CRITIC Work Phone: [facility] Comment on above: Refill Request Start: 04-26-2024 End: 04-26-2024 ambulatory [facility] [place] Start: 04-26-2024 End: 04-26-2024 Patient encounter [facility] [place] Comment on above: Population Health Na vigation Outreach ([employer] High Risk - Attempt 2) Start: 04-08-2024 End: 04-09-2024 Refill Hever Martínez APRN.DRAMATIC CRITIC Work Phone: [facility] Comment on above: Refill Request Start: 03-27-2024 End: 03-27-2024 ambulatory BURTON HUYNH Facility:[facility] Start: 03-27-2024 End: 03-27-2024 Office outpatient visit 25 minutes Trey Smith CARDIOTHORACIC ICU RN.DRAMATIC CRITIC Work Phone: Pulmonary Medicine Comment on above: 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) (Primary Dx); Hypoxia; Pneumonia of left lower lobe due to infectious organism; Lung nodules Start: 03-27-2024 End: 03-27-2024 ambulatory Pulm Lab [facility] Work Phone: [facility]UL[facility] Comment on above: Spirometry Start: 03-27-2024 End: 03-27-2024 Patient encounter procedure Pulm [facility] Work Phone: [facility] Start: 03-27-2024 End: 03-27-2024 Subsequent hospital visit by physician [facility] (I-Stat) Work Phone: Cat Scan Comment on above: Pneumonia of left lo wer lobe due to infectious organism [J18.9] Start: 03-21-2024 End: 03-21-2024 Refill Paddy Zaidi MD Work Phone: [facility] Comment on above: Refill Request Appointment Start: 03-20-2024 End: 03-20-2024 ambulatory Elenita Lehmanleslie MOY [facility] [place] Start: 03-20-2024 End: 03-20-2024 Patient encounter procedure Elenita Dey MA [facility] Comment on above: Population Health Na vigation Outreach ([employer] High Risk Attempt #1 ) Start: 03-19-2024 ambulatory BURTON HUYNH Fac ility:[facility] Start: 03-11-2024 End: 03-13-2024 Refill Paddy Zaidi MD Work Phone: [facility] Comment on above: Refill Request Start: 03-06-2024 End: 03-21-2024 Telephone encounter Burton Huynh MD Work Phone: Pulmonary Medicine Comment on above: Anticoagulation Start: 03-05-2024 End: 03-05-2024 ambulatory Pulm Lab [facility] Work Phone: PULM LAB [facility] Comment on above: Spirometry Start: 03-05-2024 End: 03-05-2024 Patient encounter procedure Pul[facility] Work Phone: [facility]ULM LAB [facility] Comment on above: 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) (Primary Dx); Pneumonia of left lower lobe due to infectious organism; Lung nodules; Former smoker; Chronic hypoxemic respiratory failure (HCC) Start: 03-02-2024 End: 03-02-2024 ambulatory PADDY ZAIDI Facility:[facility] Start: 02-15-2024 End: 02-16-2024 Telephone encounter Paddy Zaidi MD Work Phone: Family Practice Comment on above: Medication Problem Start: 02-14-2024 End: 02-14-2024 ambulatory HEVER MARTÍNEZ Facility:[facility] Start: 02-14-2024 End: 02-14-2024 Office outpatient visit 25 minutes Hever Martínez CARDIOTHORACIC ICU RN.DRAMATIC CRITIC Work Phone: [facility] Comment on above: Pneumonia of right l ower lobe due to infectious organism (Primary Dx); Chronic obstructive pulmonary disease, unspecified COPD type (HCC); Adjustment disorder with mixed anxiety and depressed mood; Paroxysmal atrial fibrillation (HCC); Encounter for immunization Start: 02-14-2024 End: 02-14-2024 Telephone encounter Hever Martínez APRN.DRAMATIC CRITIC Work Phone: [facility] Comment on above: Appointment Refill Request Start: 02-13-2024 End: 02-13-2024 Telephone encounter Paddy Zaidi MD Work Phone: [facility] Comment on above: [facility] ED) Start: 02-07-2024 End: 02-07-2024 Emergency department patient visit Shayne Zaidi Facility:[facility] Start: 12-30-2023 End: 01-02-2024 Refill Paddy Zaidi MD Work Phone: [facility] Comment on above: Refill Request Start: 12-21-2023 End: 12-21-2023 Telephone encounter Paddy Zaidi MD Work Phone: [facility] Comment on above: Orders (Das[employer] annual oxygen rx) Start: 12-01-2023 End: 12-01-2023 Refill Paddy Zaidi MD Work Phone: [facility] Comment on above: Refill Request Start: 11-28-2023 End: 11-29-2023 Refill Paddy Zaidi MD Work Phone: [facility] Comment on above: Refill Request Start: 09-02-2023 ambulatory Sarah Robison RN Work Phone: [employer] Start: 08-25-2023 ambulatory Corrina GAN Android Architect Start: 08-25-2023 Home visit Corrina Vale Android Architect Comment on above: Population Health Na vigation Outreach ([employer] Attributed Member- Needs 2023 Medicare Wellness Appt Scheduled/) Start: 08-03-2023 ambulatory [facility] De[facility] [place] Start: 08-03-2023 Patient encounter procedure Elenita Dey MA [facility] Comment on above: Population Health Na vigation Outreach ([employer] AWV/HCC and care gaps /) Start: 07-11-2023 Refill Paddy quintana MD Work Phone: [facility] Comment on above: Refill Request Medication Request Start: 06-13-2023 Telephone encounter Paddy Zaidi MD Work Phone: [facility] Comment on above: Results (Labs ) Start: 06-07-2023 End: 06-07-2023 Patient encounter procedure Paddy Zaidi MD Work Phone: 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 Comment on above: Refill Request Start: 04-15-2023 ambulatory Corrina Barakat MA [facility] Comment on above: Population Health Na vigation Outreach ([employer] HCCs 2.16.24) Start: 04-08-2023 Refill Paddy quintana MD Work Phone: [facility] Comment on above: Refill Request Start: 03-18-2023 Telephone encounter Paddy Zaidi MD Work Phone: [facility] Comment on above: Received Outside Med ical Records ([facility] ED 03/15/23) Start: 03-15-2023 End: 03-15-2023 Emergency department patient visit [facility] Work Phone: Start: 12-28-2022 Telephone encounter Paddy Zaidi MD Work Phone: [facility] Comment on above: Orders ([employer] annual oxygen prescription renewal ) Start: 09-23-2022 Telephone encounter Paddy Zaidi MD Work Phone: [facility] Comment on above: Received Outside Med [facility] Records ([facility] 09/22/22) Start: 09-22-2022 End: 09-22-2022 Emergency department patient visit [facility] Work Phone: Start: 08-20-2022 Telephone encounter Paddy Zaidi MD Work Phone: [facility] Comment on above: Patient Question Start: 06-22-2022 Telephone encounter Hever page CARDIOTHORACIC ICU RN.DRAMATIC CRITIC Work Phone: [facility] Comment on above: Orders Start: 06-02-2022 End: 06-02-2022 Office outpatient visit 15 minutes Hever Santiago CARDIOTHORACIC ICU RN.DRAMATIC CRITIC Work Phone: [facility] Comment on above: Pneumonia of right m iddle lobe due to infectious organism (Primary Dx); ED (erectile dysfunction) of organic origin; Adjustment disorder with mixed anxiety and depressed mood Start: 05-25-2022 ambulatory Hever Arce PRN.DRAMATIC CRITIC Work Phone: [facility] Comment on above: Results Start: 05-22-2022 End: 05-22-2022 Subsequent hospital visit by physician [facility] Work Phone: Radiology Comment on above: Coronary artery dise ase involving chilkat coronary artery of chilkat heart with angina pectoris (HCC) [I25.119] Start: 05-21-2022 End: 05-21-2022 Patient encounter procedure Paddy Zaidi MD Work Phone: [facility] Comment on above: Coronary artery dise ase involving chilkat coronary artery of chilkat heart with angina pectoris (HCC) (Primary Dx); Essential hypertension; Hypokalemia; Peripheral polyneuropathy; Acquired hypothyroidism; Anxiety; Paroxysmal atrial fibrillation (HCC); SOB (shortness of breath); Mixed hyperlipidemia; Hypothyroidism, unspecified type; Chronic obstructive pulmonary disease, unspecified COPD type ([facility]) Start: 05-14-2022 Telephone encounter Paddy Zaidi MD Work Phone: Family Practice Comment on above: Medication Problem Start: 04-27-2022 ambulatory Cassandra Hood [facility] Comment on above: Population Health Na vigation Outreach (HCC) Start: 03-30-2022 ambulatory Paddy quintana MD Work Phone: Internal Medicine [facility] [place] Start: 02-19-2022 Telephone encounter Paddy Zaidi MD Work Phone: Family Practice Comment on above: Medication Problem Start: 01-18-2022 End: 01-18-[address] Shayne Zaidi Work Phone: [facility] Work Phone: Start: 01-18-2022 End: 01-18-[address] Shayne Zaidi Work Phone: [facility] Start: 12-28-2021 Telephone encounter Paddy Zaidi MD Work Phone: Family Practice Comment on above: Received Outside Med ical Records (Pulmonary Medicine [facility]) Start: 12-28-2021 End: 12-28-[address] Shayne Zaidi Work Phone: [facility] Start: 12-25-2021 Telephone encounter Paddy Zaidi MD Work Phone: Family Practice Comment on above: Received Outside Med ical Records ([facility] 12 lead EKG 12/16/2021 and 12/17/2021) Start: 12-23-2021 Non-patient / Non-visit Dr. 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 Comment on above: Received Outside Med ical Records ([facility] chest xray 12/18/2021) Received Outside Med ical Records ([facility] discharge instructions. 12/18/2021) Start: 12-18-2021 Non-patient / Non-visit Dr. Oscar Zaidi Work Phone: [facility] Start: 12-17-2021 Non-patient / Non-visit Dr. Oscar Zaidi Work Phone: [facility] Start: 12-17-2021 Telephone encounter Paddy Zaidi MD Work Phone: [facility] Comment on above: Received Outside Med ical Records ([facility]) Start: 12-17-2021 End: 12-18-2021 Non-patient / Non-visit Dr. Shayne Zaidi Work Phone: [facility] Start: 12-16-2021 Non-patient / Non-visit Dr. Oscar Zaidi Work Phone: [facility] Start: 12-16-2021 Telephone encounter Paddy Zaidi MD Work Phone: [facility] Comment on above: Received Outside Med ical Records ([facility] Cardiac Cath) Start: 12-16-2021 Non-patient / Non-visit Dr. Oscar Zaidi Work Phone: [facility] Start: 12-15-2021 Telephone encounter Paddy Zaidi MD Work Phone: [facility] Comment on above: Received Outside Med ical Records ([facility] ED) Start: 12-15-2021 Non-patient / Non-visit Dr. Oscar Zaidi Work Phone: [facility] Start: 12-15-2021 Non-patient / Non-visit Dr. Oscar Zaidi Work Phone: [facility] Start: 12-14-2021 Non-patient / Non-visit Dr. Oscar Zaidi Work Phone: [facility] Start: 12-14-2021 Non-patient / Non-visit Dr. Oscar Zaidi Work Phone: [facility] Start: 12-14-2021 End: 12-18-2021 Evaluation and management of inpatient Dr. Shayne Zaidi Work Phone: [facility] Start: 11-13-2021 Refill Hever Pamela A PRN.DRAMATIC CRITIC Work Phone: [facility] Comment on above: Refill Request Start: 09-14-2021 Telephone encounter Hever page CARDIOTHORACIC ICU RN.DRAMATIC CRITIC Work Phone: [facility] Comment on above: Results Start: 09-09-2021 Refill Hever Pamela A PRN.DRAMATIC CRITIC Work Phone: [facility] Comment on above: Refill Request Start: 06-22-2021 End: 06-22-2021 Patient encounter procedure Hever Pamela CARDIOTHORACIC ICU RN.DRAMATIC CRITIC Work Phone: [facility] Comment on above: Essential hypertensi on (Primary Dx); Pure hypercholesterolemia; Acquired hypothyroidism; Adjustment disorder with mixed anxiety and depressed mood; Peripheral polyneuropathy Start: 06-09-2021 Refill Paddy quintana MD Work Phone: [facility] Comment on above: Refill Request Start: 05-20-2021 Refill Paddy quintana MD Work Phone: [facility] Comment on above: Refill Request Procedures Date [...] Work Phone: Start: 09-16-[address] Sahyne Zaidi MD Work Phone: Start: 09-16-2024 Plain [...] Author Start: 09-10-2027 Diabetes Screening Diabetes Screenin [facility] Start: 06-30-2027 Diabetes Screening Diabetes Screenin g [facility] Start: 06-05-2026 Diabetes Screening Diabetes Screenin [facility] Start: 06-29-2025 Hepatitis B surface antibody level LDL Cholesterol [facility] Start: 05-21-2025 DIABETES SCREEN DIABETES SCREEN [facility] Start: 05-21-2025 Diabetes Screening Diabetes Screenin g [facility] Start: 11-16-2024 End: 11-16-2024 Patient encounter procedure 11/16/2024 10:00 AM EDT Office Visit Cardiology [address] [place] [address] [place] [address] [place] [address] Dx: Paroxysmal atrial fibrillation (HCC) [I48.0] Cardiology Comment on above: Dx: Paroxysmal atria l fibrillation (HCC) [I48.0] Start: 11-07-2024 End: 11-07-2024 Patient encounter procedure 11/07/2024 2:00 PM EDT Office Visit [facility] [address] [place], [place] [id number] Paddy Zaidi MD [address] [place] [id number] [address] [facility] Comment on above: 6 week follow up Start: 10-16-2024 End: 10-16-2024 Patient encounter procedure 10/16/2024 3:20 PM EDT Office Visit [address] [place], [place] [id number] Paddy Zaidi MD [address] [place], [place] [id number] follow up [facility] Comment on above: follow up Start: 10-08-2024 Influenza vaccination Influenza Vacc ine (#1) [facility] Start: 10-02-2024 End: 10-02-2024 Patient encounter procedure Pulmonary Medicine Comment on above: 3 MTH F/U / PT DECLI LUCILA EARLIER APPOINTMENT Start: 09-25-2024 End: 12-25-2024 Basic metabolic 2000 panel - Serum or Plasma BASIC METABOLIC PANEL Lab Routine Hypokalemia Expected: 09/25/2024, Expires: 12/25/2024 [facility] Comment on above: Expected: 09/25/2024 , Expires: 12/25/2024 Start: 09-25-2024 End: 12-25-2024 CBC panel - Blood by Automated count COMPLETE BLOOD COUNT Lab Routine Acute on chronic diastolic congestive heart failure (HCC) Expected: 09/25/2024, Expires: 12/25/2024 [facility] Comment on above: Expected: 09/25/2024 , Expires: 12/25/2024 Start: 09-25-2024 End: 09-25-2024 Patient encounter procedure 09/25/2024 11:00 AM EDT Office Visit Family [facility] [address] [place] [address] Paddy Zaidi MD [address] [place] [address] [facility] Comment on above: HOSPITAL FOLLOW UP Start: 09-19-2024 Patient discharge [facility] Start: 09-17-2024 Vital signs measurements [facility] Start: 09-17-2024 Aspiration precautions [facility] Start: 09-17-2024 Cardiac monitoring [facility] Start: 09-17-2024 Catheterization of vein [facility] Start: 09-17-2024 Consultation [facility] Start: 09-17-2024 Elevation of head of bed [facility] Start: 09-17-2024 Exercises [facility] Start: 09-17-2024 Notification of physician [facility] Start: 09-17-2024 Oxygen therapy [facility] Start: 09-17-2024 Referral to occupati onal therapist [facility] Start: 09-17-2024 Referral to service [facility] Start: 09-17-2024 Speech therapy assessment [facility] Start: 09-17-2024 Tobacco use cessatio n education [facility] Start: 09-17-2024 [facility] Start: 09-17-2024 End: 09-17-2024 [facility] Start: 09-17-2024 Telemedicine consult ation with patient [facility] Start: 09-16-2024 Following clinical pathway protocol [facility] Start: 09-16-2024 Aspiration precautions [facility] Start: 09-16-2024 Assessment of risk o f venous thromboembolism [facility] Start: 09-16-2024 Fall prevention [facility] Start: 09-16-2024 Inhalation therapy procedure [facility] Start: 09-16-2024 Insertion of cathete r into peripheral vein [facility] Start: 09-16-2024 Introduction of urin graham catheter [facility] Start: 09-16-2024 Measuring intake and output [facility] Start: 09-16-2024 Providing care accor ding to [facility] Start: 09-16-2024 Provision of activit y privileges [facility] Start: 09-16-2024 Referral to occupati onal therapist [facility] Start: 09-16-2024 Referral to service [facility] Start: 09-16-2024 Speech therapy assessment [facility] Start: 09-16-2024 [facility] Start: 09-16-2024 Blood ammonia measurement [facility] Start: 09-16-2024 Gas panel - Arterial blood [facility] Start: 09-16-2024 Verification routine [facility] Start: 09-16-2024 Admission procedure [facility] Start: 09-16-2024 Hospital admission, emergency, from emergency room, medical nature [facility] Start: 09-16-2024 Patient referral to dietitian [facility] Start: 09-16-2024 [facility] Start: 09-14-2024 DIABETES SCREEN DIABETES SCREEN [facility] Start: 09-12-2024 Patient discharge [facility] Start: 09-10-2024 Speech therapy assessment [facility] Start: 09-10-2024 Continuous positive airway pressure ventilation treatment [facility] Start: 09-10-2024 Referral to third officer [facility] Start: 09-10-2024 Assessment of risk o f venous thromboembolism [facility] Start: 09-10-2024 Catheterization of vein [facility] Start: 09-10-2024 Insertion of cathete r into peripheral vein [facility] Start: 09-10-2024 Measuring intake and output [facility] Start: 09-10-2024 Oxygen therapy [facility] Start: 09-10-2024 Providing care accor ding to [facility] Start: 09-10-2024 Provision of activit y privileges [facility] Start: 09-10-2024 Referral to occupati onal therapist [facility] Start: 09-10-2024 Referral to service [facility] Start: 09-10-2024 Admission procedure [facility] Start: 09-10-2024 Following clinical pathway protocol [facility] Start: 09-10-2024 Consultation [facility] Start: 09-10-2024 End: 09-10-2024 [facility] Start: 07-13-2024 End: 07-13-2024 Patient encounter procedure 07/13/2024 4:20 PM EDT Office Visit Family Practice [address] [place], [place] [id number] Paddy Zaidi MD [address] [place] [address] [place], [place] [id number] Foot issues follow up Family Practice Comment on above: Foot issues follow u p Start: 06-26-2024 End: 06-26-2024 Patient encounter procedure Pulmonary Medicine Comment on above: 3 MTH F/U Start: 06-05-2024 Hepatitis B surface antibody level LDL Cholesterol [facility] Start: 03-27-2024 End: 03-27-2024 Patient encounter procedure Pulmonary Medicine Comment on above: f/up Pneumonia of left lo wer lobe due to infectious organism [J18.9]; Lung nodules [R91.8] Start: 03-27-2024 End: 03-27-2024 ambulatory 03/27/2024 1:30 PM EST Procedure [facility] [address] [place] [address] Wstr, Pulm Lab [facility] [address] [place] [address] 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] PULM LAB [facility] Comment on above: 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] Start: 03-26-2024 End: 03-26-2024 Patient encounter procedure 03/26/2024 3:00 PM EST Office Visit Family Practice [address] [place], [place] [id number] Paddy Zaidi MD [address] [facility] [address] [place] [phone] follow up Family Practice Comment on above: follow up Start: 03-21-2024 End: 03-21-2024 Patient encounter procedure Pulmonary Medicine Comment on above: f/up Pneumonia of left lo wer lobe due to infectious organism [J18.9]; Lung nodules [R91.8] Start: 03-21-2024 End: 03-21-2024 ambulatory 03/21/2024 1:30 PM EST Procedure PULM LAB [facility] [address] [place] [address] Wstr, Pulm Lab [facility] [address] [place] [address] 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] [facility]UL[facility] LAB [facility] Comment on above: 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] Start: 03-14-2024 End: 03-14-2024 Patient encounter procedure Cat Scan Comment on above: Pneumonia of left lo wer lobe due to infectious organism [J18.9]; Lung nodules [R91.8] f/up Start: 03-14-2024 End: 03-14-2024 ambulatory 03/14/2024 12:30 PM EST Procedure [facility] [address] [facility] [address] Wstr, Pulm Lab [facility] [address] [place] [id number] 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] PULM LAB [facility] Comment on above: 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] Start: 02-21-2024 End: 05-22-2024 CBC panel - Blood by Automated count COMPLETE BLOOD COUNT Lab Routine Paroxysmal atrial fibrillation (HCC) Expected: 02/21/2024, Expires: 05/22/2024 [facility] Work Phone: Comment on above: Expected: 02/21/2024 , Expires: 05/22/2024 Start: 02-14-2024 End: 05-15-2024 Basic metabolic 2000 panel - Serum or Plasma BASIC METABOLIC PANEL Lab Routine Paroxysmal atrial fibrillation (HCC) Expected: 02/14/2024, Expires: 05/15/2024 [facility] Comment on above: Expected: 02/14/2024 , Expires: 05/15/2024 Start: 02-14-2024 End: 02-14-2024 Patient encounter procedure 02/14/2024 2:00 PM EST Office Visit Family Practice [address] [facility] [place], [place] [phone] Hever Martínez, CARDIOTHORACIC ICU RN.DRAMATIC CRITIC [address] [facility] [address] [place], [place] [phone] hosptial f/u breathing cold coughing touch of pneumonia Family [facility] Comment on above: hosptial f/u breathi ng cold coughing touch of pneumonia Start: 02-08-2024 Advance Directive Discussion Advance Directive Discussion [facility] Start: 02-08-2024 Medicare Advantage A nnual Wellness Visit Medicare Advantage Annual Wellness Visit [facility] Start: 12-18-2023 DIABETES SCREEN DIABETES SCREEN [facility] Start: 10-09-2023 Covid-19 Vaccine ( season) Covid-19 Vaccine ( season) [facility] Start: 10-09-2023 Influenza vaccination [facility] Start: 07-08-2023 End: 07-08-2023 Patient encounter procedure 07/08/2023 3:40 PM EDT Office Visit Family Practice [address] [facility] [address] [place], [place] [phone] Paddy Zaidi MD [address] [facility] [address] [place], [place] [address] [address] [facility] Comment on above: 1 month follow up Start: 06-23-2023 End: 06-23-2023 Patient encounter procedure 06/23/2023 3:20 PM EDT Office Visit Family Practice [address] [facility] [address] [place], [place] [phone] Paddy Zaidi MD [address] [facility] [address] [place], [place] [id number] MEDICARE WELLNESS [id number] Family Practice Comment on above: MEDICARE WELLNESS Z0 0.00 Start: 06-16-2023 End: 06-16-2023 ambulatory 06/16/2023 2:15 PM EDT Procedure PULM LAB [facility] [address] [place] [address] Wstr, Pulm Lab [facility] [address] [facility] [address] 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]; Hypoxemia [R09.02] PULM LAB [facility] Comment on above: 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) [I25.729]; Hypoxemia [R09.02] Start: 06-07-2023 End: 06-07-2023 Patient encounter procedure 06/07/2023 4:20 PM EDT Office Visit [facility] [address] [facility] [place], [place] [phone] Paddy Zaidi MD [address] [facility] [address] [place], [place] [phone] anxiety, Family Practice Comment on above: anxiety, Start: 05-27-2023 End: 08-26-2023 CBC panel - Blood by Automated count COMPLETE BLOOD COUNT Lab Routine Essential hypertension Mixed hyperlipidemia Peripheral polyneuropathy Expected: 05/27/2023, Expires: 08/26/2023 [facility] Comment on above: Expected: 05/27/2023 , Expires: 08/26/2023 Start: 05-27-2023 End: 08-26-2023 Comprehensive metabolic 2000 panel - Serum or Plasma COMPREHENSIVE METABOLIC PANEL Lab Routine Essential hypertension Expected: 05/27/2023, Expires: 08/26/2023 [facility] Work Phone: Comment on above: Expected: 05/27/2023 , Expires: 08/26/2023 Start: 05-27-2023 End: 08-26-2023 Hemoglobin A1c in Blood HEMOGLOBIN A1C Lab Routine Peripheral polyneuropathy Expected: 05/27/2023, Expires: 08/26/2023 [facility] Comment on above: Expected: 05/27/2023 , Expires: 08/26/2023 Start: 05-27-2023 End: 08-26-2023 Lipid 1996 panel - Serum or Plasma LIPID PANEL BASIC Lab Routine Mixed hyperlipidemia Expected: 05/27/2023, Expires: 08/26/2023 [facility] Comment on above: Expected: 05/27/2023 , Expires: 08/26/2023 Start: 05-27-2023 End: 08-26-2023 Thyrotropin [Units/volume] in Serum or Plasma THYROID STIMULATING HORMONE Lab Routine Hypothyroidism, unspecified type Expected: 05/27/2023, Expires: 08/26/2023 [facility] Comment on above: Expected: 05/27/2023 , Expires: 08/26/2023 Start: 05-22-2023 Hepatitis B surface antibody level LDL CHOLESTEROL [facility] Start: 03-15-2023 [facility] Start: 03-15-2023 Inhalation therapy procedure [facility] Start: 02-07-2023 Advance Directive Discussion Advance Directive Discussion [facility] Start: 12-23-2022 SHINGRIX VACCINE (1 of 2) SMALL GRIX VACCINE (1 of 2) [facility] Comment on above: Postponed from 10/05 (Declined at this time) Start: 12-23-2022 Urine microalbumin profile DTAP,TDAP,TD (1 - Tdap) [facility] Comment on above: Postponed from 10/05 (Declined at this time) Start: 10-08-2022 Covid-19 Vaccine ( season) Covid-19 Vaccine () [facility] Start: 10-08-2022 Influenza vaccination [facility] Start: 05-21-2022 End: 07-21-2022 Natriuretic peptide.B prohormone N-Terminal [Mass/volume] in Serum or Plasma NT PRO BNP Lab Routine 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) SOB (shortness of breath) Expected: 05/21/2022, Expires: 07/21/2022 [facility] Work Phone: Comment on above: Expected: 05/21/2022 , Expires: 07/21/2022 Start: 03-30-2022 End: 05-30-2022 CBC panel - Blood by Automated count CBC Lab Routine Medication management Expected: 03/30/2022, Expires: 05/30/2022 [facility] Work Phone: Comment on above: Expected: 03/30/2022 , Expires: 05/30/2022 Start: 03-30-2022 End: 05-30-2022 SCHEDULE LAB TESTING SCHEDULE LAB TESTING Lab Routine Expected: 03/30/2022, Expires: 05/30/2022 [facility] Work Phone: Comment on above: Expected: 03/30/2022 , Expires: 05/30/2022 Start: 03-30-2022 End: 05-30-2022 Thyrotropin [Units/volume] in Serum or Plasma TSH BLD Lab Routine Acquired hypothyroidism Expected: 03/30/2022, Expires: 05/30/2022 [facility] Work Phone: Comment on above: Expected: 03/30/2022 , Expires: 05/30/2022 Start: 02-07-2022 ADVANCE DIRECTIVE DISCUSSION ADVANCE DIRECTIVE DISCUSSION [facility] Start: 12-23-[address] [facility] Work Phone: Start: 12-18-2021 Patient discharge [facility] Work Phone: Start: 12-18-2021 [facility] Work Phone: Start: 12-17-2021 Referral to occupati onal therapist [facility] Work Phone: Start: 12-17-2021 Referral to service [facility] Work Phone: Start: 12-17-2021 Hepatitis B surface antibody level LDL CHOLESTEROL [facility] Start: 12-16-2021 End: 12-17-2021 [facility] Work Phone: Start: 12-16-2021 Cardiac monitoring [facility] Work Phone: Start: 12-16-2021 Cardiac rehabilitati on - phase 1 [facility] Work Phone: Start: 12-16-2021 Cardiac rehabilitati on - phase 2 [facility] Work Phone: Start: 12-16-2021 Notification of physician [facility] Work Phone: Start: 12-16-2021 Patient discharge [facility] Work Phone: Start: 12-16-2021 Systemic arterial pressure monitoring [facility] Work Phone: Start: 12-16-2021 Taking patient vital signs [facility] Work Phone: Start: 12-16-2021 Vascular disease ris k assessment [facility] Work Phone: Start: 12-16-2021 Vital signs measurements [facility] Work Phone: Start: 12-15-2021 Care planning and pr oblem solving actions [facility] Work Phone: Start: 12-15-[address] [facility] Work Phone: Start: 12-15-2021 Catheterization of vein [facility] Work Phone: Start: 12-15-2021 Medication not administered [facility] Work Phone: Start: 12-15-2021 [facility] Work Phone: Start: 12-14-2021 Care planning and pr oblem solving actions [facility] Work Phone: Start: 12-14-2021 Ambulation without limitation [facility] Work Phone: Start: 12-14-2021 Assessment of risk o f venous thromboembolism [facility] Work Phone: Start: 12-14-2021 Catheterization of vein [facility] Work Phone: Start: 12-14-2021 Chart related administrative procedure [facility] Work Phone: Start: 12-14-2021 Elevation of head of bed [facility] Work Phone: Start: 12-14-2021 Insertion of cathete r into peripheral vein [facility] Work Phone: Start: 12-14-2021 Measuring intake and output [facility] Work Phone: Start: 12-14-2021 Medication education [facility] Work Phone: Start: 12-14-2021 Oxygen therapy [facility] Work Phone: Start: 12-14-2021 Patient education [facility] Work Phone: Start: 12-14-2021 Providing care accor ding to standard [facility] Work Phone: Start: 12-14-2021 Referral to third officer [facility] Work Phone: Start: 12-14-2021 [facility] Work Phone: Start: 12-14-2021 Troponin I measurement [facility] Work Phone: Start: 12-14-2021 Bacteria identified in Sputum by Culture [facility] Work Phone: Start: 12-14-2021 Legionella pneumophi la Ag [Presence] in Urine [facility] Work Phone: Start: 12-14-2021 Streptococcus pneumo niae antigen assay [facility] Work Phone: Start: 12-14-2021 [facility] Work Phone: Start: 12-14-2021 End: 12-14-2021 Following clinical pathway protocol [facility] Work Phone: Start: 12-14-2021 Verification routine [facility] Work Phone: Start: 12-14-2021 Admission procedure [facility] Work Phone: Start: 12-14-2021 [facility] Work Phone: Start: 10-08-2021 Influenza vaccination INFLUENZA (#1) [facility] Start: 09-10-2021 End: 11-10-2021 Basic metabolic 2000 panel - Serum or Plasma BASIC METABOLIC PNL Lab Routine Essential hypertension Hypokalemia Expected: 09/10/2021, Expires: 11/10/2021 [facility] Work Phone: Comment on above: Expected: 09/10/2021 , Expires: 11/10/2021 Start: 02-07-2021 ADVANCE DIRECTIVE DISCUSSION ADVANCE DIRECTIVE DISCUSSION [facility] Start: 08-25-2020 COVID-19 VACCINE (3 - Booster for Moderna series) COVID-19 VACCINE (3 - Booster for Moderna series) [facility] Start: 05-23-2020 COVID-19 VACCINE (3 - Booster for Moderna series) COVID-19 VACCINE (3 - Booster for Moderna series) [facility] Start: 05-23-2020 COVID-19 VACCINE (3 - Moderna series) COVID-19 VACCINE (3 - Moderna series) [facility] Start: 10-05-2014 RSV Vaccine (1 - 1-d ose 75+ series) RSV Vaccine (1 - 1-dose 75+ series) [facility] Start: 1999 RSV Vaccine (1 - 1-d ose 60+ series) RSV Vaccine (1 - 1-dose 60+ series) [facility] Start: 10-05-1989 SHINGRIX VACCINE (1 of 2) SMALL GRIX VACCINE (1 of 2) [facility] Start: 10-05-1958 Urine microalbumin profile [facility] Start: 10-05-1957 SPIROMETRY SPIROMETRY [facility] End: 04-04-2025 CT Chest WO contrast CT CHEST WO IVCON Radiology Routine Pneumonia of left lower lobe due to infectious organism Lung nodules 1 Occurrences starting 03/05/2024 until 04/04/2025 [facility] Work Phone: Comment on above: 1 Occurrences starti ng 03/05/2024 until 04/04/2025 CT Chest WO contrast CT CHEST WO IVCON Radiology Routine Pneumonia of left lower lobe due to infectious organism Lung nodules 03/27/2024 3:54 PM EST [facility] Work Phone: ECG COMPLETE ECG COMPLETE ECG Routine 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) Paroxysmal atrial fibrillation (HCC) 05/21/2022 3:54 PM EDT [facility] Work Phone: Magnesium measurement [facility] OXIMETRY - NOCTURNAL OXIMETRY - NOCTURNAL Procedures Routine Hypoxia Ordered: 03/27/2024 [facility] Work Phone: Comment on above: Ordered: 03/27/2024 End: 04-04-2025 OXIMETRY WITH AMBULATION OXIMETRY WITH AMBULATION PFT Routine 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) 1 Occurrences starting 03/05/2024 until 04/04/2025 [facility] Comment on above: 1 Occurrences starti ng 03/05/2024 until 04/04/2025 Patient Education [facility] Work Phone: Patient referral [facility] Work Phone: End: 02-15-2025 PT panel - Platelet poor plasma by Coagulation assay PROTHROMBIN TIME Lab Routine Chronic atrial fibrillation (HCC) correction current use of anticoagulant therapy Once per week for 52 Occurrences starting 02/16/2024 until 02/15/2025 [facility] Work Phone: Comment on above: Once per week for 52 Occurrences starting 02/16/2024 until 02/15/2025 End: 09-25-2025 PT panel - Platelet poor plasma by Coagulation assay PROTHROMBIN TIME Lab Routine Atrial fibrillation with RVR (HCC) Every other week for 26 Occurrences starting 09/25/2024 until 09/25/2025 [facility] Work Phone: Comment on above: Every other week for 26 Occurrences starting 09/25/2024 until 09/25/2025 End: 06-20-2023 Radiologic exam chest 2 views XR CHEST 2V FRONTAL/LAT Radiology Routine 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) Paroxysmal atrial fibrillation (HCC) SOB (shortness of breath) 1 Occurrences starting 05/21/2022 until 06/20/2023 [facility] Work Phone: Comment on above: 1 Occurrences starti ng 05/21/2022 until 06/20/2023 Radiologic exam ches t 2 views XR CHEST 2V FRONTAL/LAT Radiology Routine Pneumonia of right middle lobe due to infectious organism Ordered: 06/02/2022 [facility] Work Phone: Comment on above: Ordered: 06/02/2022 End: 07-06-2024 SIX MINUTE WALK SIX MINUTE WALK PFT Routine 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) Hypoxemia 1 Occurrences starting 06/07/2023 until 07/06/2024 [facility] Comment on above: 1 Occurrences starti ng 06/07/2023 until 07/06/2024 Troponin I measurement [facility] Work Phone: End: 07-06-2024 XR Chest PA and Lateral XR CHEST 2V FRONTAL/LAT Radiology Routine 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) SOB (shortness of breath) 1 Occurrences starting 06/07/2023 until 07/06/2024 [facility] Work Phone: Comment on above: 1 Occurrences starti ng 06/07/2023 until 07/06/2024 [facility] Immunizations Immunization Date Immunization Notes Care Provider Elise hernandez 02-14-2024 influenza, high dose seasonal, preservative-free Hever Martínez APRN.CNP Work Phone: [facility] 02-14-2024 influenza virus vacc ine, unspecified formulation Paddy Zaidi MD Work Phone: [facility] 12-17-2020 influenza, high-dose , quadrivalent vaccine (FLUZONE HIGH DOSE QUADRIVALENT) Paddy Zaidi MD Work Phone: [facility] 12-17-2020 influenza virus vacc ine, unspecified formulation Paddy Zaidi MD Work Phone: [facility] 03-28-2020 COVID-19 vaccine, fu ll dose (MODERNA) Paddy Zaidi MD Work Phone: [facility] 02-29-2020 COVID-19 vaccine, fu ll dose (MODERNA) Paddy Zaidi MD Work Phone: [facility] 07-31-2019 pneumococcal polysaccharide vaccine, 23 valent Paddy Zaidi MD Work Phone: [facility] 07-31-2019 pneumococcal vaccine , unspecified formulation Dr. Shayne Zaidi Work Phone: [facility] 01-12-[address] Shayne Zaidi Work Phone: [facility] 01-12-2018 influenza, high dose seasonal, preservative-free Paddy Zaidi MD Work Phone: [facility] 01-12-2018 influenza, seasonal, injectable Paddy Zaidi MD Work Phone: [facility] 01-12-2018 influenza, seasonal, injectable, preservative free Paddy Zaidi MD Work Phone: [facility] 01-12-2018 pneumococcal polysaccharide vaccine, 23 valent Paddy Zaidi MD Work Phone: [facility] 01-12-2018 pneumococcal vaccine , unspecified formulation Paddy Zaidi MD Work Phone: [facility] 03-31-2017 pneumococcal conjuga te vaccine, 13 valent Paddy Zaidi MD Work Phone: [facility] 12-08-[address] Shayne Zaidi Work Phone: [facility] 12-08-2016 influenza, seasonal, injectable Paddy Zaidi MD Work Phone: [facility] 12-08-2016 influenza, seasonal, injectable, preservative free Paddy Zaidi MD Work Phone: [facility] 11-27-2016 influenza, high dose seasonal, preservative-free Paddy Zaidi MD Work Phone: [facility] Work Phone: 12-01-2013 influenza virus vacc ine, whole virus Paddy Zaidi MD Work Phone: [facility] 11-23-2012 influenza virus vacc ine, unspecified formulation Paddy Zaidi MD Work Phone: [facility] 01-16-2010 pneumococcal polysaccharide vaccine, 23 valent Paddy Zaidi MD Work Phone: [facility] 12-09-2009 influenza virus vacc ine, unspecified formulation Paddy Zaidi MD Work Phone: [facility] 12-23-2008 influenza virus vacc ine, unspecified formulation Paddy Zaidi MD Work Phone: [facility] Work Phone: Payers Date Payer Category Payer Self-pay [id number] 2021 Medicare [id number] 2021 Medicare AETNA MEDICARE A ETNA MEDICARE PPO [id number] 2021-Present [phone] [address] [place] [address] PPO [id number] 2021 Medicare (Managed Care[place] [facility] [id number] 2014 Private Health Insurance 101 [id number] 2009 Medicare AETNA MEDICARE A ETNA MEDICARE PPO [id number] 2009-Present [phone] [address] [place] [address] [facility] [id number] Medicare MEDICARE PART A B [id number] Unknown [id number] 462 Unknown [id number]. 462 Unknown [id number]. 462 Unknown [id number]. 462 Unknown [id number] [id number]. 462 Unknown [id number] [id number]. 462 Unknown [id number] 2.16.840.1.849360.3.579.2. 462 Unknown [id number] 2.16.840.1.596065.3.579.2. 462 Unknown [id number] [id number]. 462 Unknown [id number] 2.16.840.1.590235.3.579.2. 462 Unknown [id number] 2.16.840.1.244191.3.579.2. 462 Unknown [id number] [id number]. 462 Unknown [id number]. 462 Social History Date Type Detail Facility Start: 02-01-2017 End: 03-05-2024 Tobacco smoking status NHIS Ex-smoker [facility] Start: 10-17-1967 End: 10-16-1992 History of tobacco use Current smoker [facility] Start: 10-17-1967 End: 10-16-1992 History of tobacco use Cigarette Smoker [facility] Start: 12-17-2020 End: 09-25-2024 Alcohol intake Current non-drinker of alcohol (finding) [facility] Start: 1940 Sex Assigned At Not on file [facility] Start: 06-12-2021 End: 12-23-2021 Exposure to SARS-CoV-2 (event) Not sure [facility] Start: 02-01-2017 End: 07-20-2022 Cigarettes smoked current (pack per day) - Reported 2 [facility] Start: 02-01-2017 End: 03-05-2024 Tobacco use and exposure Smokeless tobacco non-user [facility] Start: 12-14-2021 End: 03-15-2023 Tobacco smoking status NHIS Unknown if ever smoked [facility] Start: 07-28-2019 None [facility] Start: 07-28-2019 Spouse/ Signif icant Other [facility] Start: 07-28-2019 Non-smoker [facility] Start: 1940 Sex Assigned At Male [facility] Start: 06-02-2022 End: 07-20-2022 Tobacco use panel [facility] Start: 01-09-2012 Adult Depression Screening Assessment 0 [facility] Medical Equipment Procedure Code Equipment Code Equipment [...] X3 Insert for MDM FDA Start: 07-24-2018 ([id number]) Drug-eluting cor onary artery stent, bioabsorbable-polymer -coated ([id number] FDA Start: 12-16-2021 6.5MM CANNULATED SCREW FDA [...] Assessment Result Facility 09-19-2024 Functional status Ambulates [facility] Work Phone: 09-12-2024 Functional status Ambulates [facility] Work Phone: 12-18-2021 Functional status Chair [facility] Work Phone: 07-29-2014 Are you deaf, or do you have serious difficulty hearing No 07/29/2014 10:56 AM Sindhu Quiroz Ma No [facility] 07-29-2014 Are you blind, or do you have serious difficulty seeing, even when wearing glasses No 07/29/2014 10:56 AM Sindhu Quiroz Ma No [facility] 07-29-2014 Do you have serious difficulty walking or climbing stairs No 07/29/2014 10:56 AM Sindhu Quiroz Ma No [facility] 07-29-2014 Do you have difficul ty dressing or bathing No 07/29/2014 10:56 AM Sindhu Quiroz Ma No [facility] 07-29-2014 Because of a physica l, mental, or emotional condition, do you have difficulty doing errands alone such as visiting a physician's office or shopping No 07/29/2014 10:56 AM Sindhu Quiroz Ma No [facility] Mental Status Date Assessment Result Facility 09-19-2024 Cognitive function Voice/Name [facility] Work Phone: 09-16-2024 Cognitive function Level Of Cons ciousness Awake;Alert;Appropriate;Fol lows [facility] Work Phone: 09-12-2024 Cognitive function Voice/Name [facility] Work Phone: 12-18-2021 Cognitive function Voice/Name [facility] Work Phone: 07-29-2014 Because of a physica l, mental, or emotional condition, do you have serious difficulty concentrating, remembering, or making decisions No 07/29/2014 10:56 AM EDT Mattie Moy, Sindhu Haley No [facility] Clinical Notes 05-21-2021 to 09-25-2024 Paddy Zaidi MD - 09/25/2024 3:52 PM EDTTelephone Encounter - Cassandra Ann LPN - 09/20/2024 1:45 PM EDTTelephone Encounter - Cassandra Ann LPN - 09/20/2024 1:45 PM EDT Note Date & Type Note Facility 09-25-2024 Note HNO ID: [id number] Author: PADDY ZAIDI MD Service: ? Author Type: Physician Type: Progress Notes Filed: 09/25/2024 16:20 Note Text: Subjective Adrian Pedersen is an 83-year-old male with a history of atrial fibrillation, heart failure, and anxiety, accompanied by his daughter who is providing history on his behalf, presenting for follow-up after recent hospitalizations. Atrial Fibrillation: - Recent hospitalization at [facility] for heart failure, and pneumonia. Known history [...] Contrast on 09-10-2024 Echo Complete W/ Contrast [facility] [address] [place] [address] Echo Complete W/ Contrast 09/10/24 1001 MR#: [id number] Acct: [id number] Name: TYLOR PEDERSEN Rep #: [id number] : 1940 83 From: Dallas Muller MD Attending Dr: Dr. Aayush Sibley DO Status: A DM IN Ordering Dr: Krisotpher Valencia DO Date: 09/10/24 Location: U Sex: [...] (velocity ratio): 0.76 (more content not included)... [facility] 09-25-2024 History of Presen t illness Narrative Subjective Adrian Pedersen is an 83-year-old male with a history of atrial fibrillation, heart failure, and anxiety, accompanied by his daughter who is providing history on his behalf, presenting for follow-up after recent hospitalizations. Atrial Fibrillation: - Recent hospitalization at [facility] for heart failure, and pneumonia. Known history [...] Contrast on 09-10-2024 Echo Complete W/ Contrast [facility] [address] [place] [address] Echo Complete W/ Contrast 09/10/24 1001 MR#: [id number] Acct: [id number] Name: TYLOR PEDERSEN Rep #: [id number] : 1940 83 From: Dallas Muller MD Attending Dr: Dr. Aayush Sibley DO Status: A DM IN Ordering Dr: Kristopher Valencia DO Date: 09/10/24 Location: [facility] Sex: M C Admitted: 09/10/24 Reason For [...] Atrial fibrillation with RVR (HCC) (I48.91) 3. correction current use of anticoagulant therapy (Z79.01) - Recent hospitalization for acute on chronic diastolic CHF, atrial fibrillation with RVR, and aspiration pneumonia. - Reviewed hospital records from [facility], including cardiology consultation by Dr. Muller [...] to follow up at Coumadin clinic at [facility]. - Order blood count and kidney function tests next week at [facility]. - Refer to Dr. Muller (cardiology) at [facility] for follow-up and ongoing management. 4. Aspiration [...] He'll start in the Coumadin clinic in [place]. Recording using [employer] software for draft documentation of the visit was discussed with the patient/authorized advertising sales representative; all questions welcomed and answered. Patient/authorized advertising sales representative agreed to proceed Paddy Zaidi MD documented in this encounter [facility] 09-20-2024 Telephone encounter Note Received 09/20/2024 from [facility]. Placed in provider's inbox for review. Route to [place] for scanning. Altered mental status hallucination/delusion [facility] 09-20-2024 Miscellaneous Notes Received 09/20/2024 from [facility]. Placed in provider's inbox for review. Route to [place] for scanning. Altered mental status hallucination/delusion documented in this encounter [facility] 09-19-2024 Discharge summary [facility] 09-19-2024 Discharge summary [facility] 09-19-2024 Discharge summary Note Date/Time September 19, 2024 11:56am [facility] Medical Records Department [address] [place] [address] Discharge Summary 09/19/24 0941 MR#: [id number] Acct: [id number] Name: TYLOR PEDERSEN Rep #:[id number] : 1940 83 From: Trevor Moody PCP: Dr. Shayne Zaidi MD Status:ADM MARICARMEN Location: [place] [address] Providers Date of Admission: 09/16/24 Date of [...] with an occluded right coronary artery and tkfc-bz-dtwhx collaterals evident. Continue baby aspirin, statin therapy, [...] 80.5 H, Lymph % (Auto) 7.0 L, [place] % (Auto) 5.8, Eos % (Auto) 4.7, [...] 80.4 H, Lymph % (Auto) 7.5 L, [place] % (Auto) 6.4, Eos % (Auto) 3.9, [...] Self Care Charges/Coding Visit Charges Inpatient E&M: 67627 Disch Hosp >30min 09/19/24 1156 <Electronically signed by Trevor Burton MD> Cosigner Signature (if applicable): CC: Dr. Shayne Zaidi MD; Dr. Trevor Burton MD~ Signed [facility] Work Phone: 1(749) 725-903008-13-2025 Discharge summary Author Trevor Burton [facility] Note Date/Time September 19, 2024 11 :50am [facility] Medical Records Department [address] [place] [address] Instructions for Home/Discharge Instructions 09/19/24 0857 MR#: [id number] Acct: [id number] Name: TYLOR PEDERSEN Rep #:[id number] : 1940 83 From: Trevor Moody PCP: [...] MD; Sweetie Rowe DO; Gonzalo Goyal MD [facility] Work Phone: 1(157) 861-621008-13-2025 [facility] Medical Records Department [address] [place] [address] Discharge Summary 09/19/24 0941 MR#: [id number] Acct: [id number] Name: TYLOR PEDERSEN Rep #: [id number] : 1940 83 From: Trevor Burton MD PCP: Dr. Shayne Zaidi MD Status:ADM MARICARMEN Location: [place] [address] Providers Date of Admission: 09/16/24 Date of [...] with an occluded right coronary artery and xows-pt-ntjzi collaterals evident. Continue baby aspirin, statin therapy, [...] Deviation 49.2 H, RDW (more content not included)...[facility]08-12-2025 Progress note Author Trixie Jeronimo [facility] Note Date/Time September 18, 2024 5: 36pm [facility] Medical Records Department [address] [place] [address] Progress Note - Neurology 09/18/24 1707 MR#: [id number] Acct: [id number] Name: TYLOR PEDERSEN Rep #:[id number] : 1940 83 From: Trixie Jeronimo MD PCP: Dr. Shayne Zaidi MD Status:ADM MARICARMEN Location: [place] [address] Assessment and Plan: Neuro Assessment/Plan TYLOR PEDERSEN [...] touch bilaterally -? Coordination: No dysmetria on knjese-slvh-oenuic, LLE ataxia -? Gait- deferred EEG Results [...] 80.5 H, Lymph % (Auto) 7.0 L, [place] % (Auto) 5.8, Eos % (Auto) 4.7, [...] IMPRESSION: No acute intracranial abnormality. Reading Location: [id number] NIHSS NIHSS Nursing Documentation NIHSS Nursing Documentation: NIHSS: Ischemic Stroke/TIA Start: 09/17/24 15:57 Text: For PCU Patients: NIH and Neuro Check every 4 Status: Complete hours, PRN and with change in RN caregiver. Freq: [id number] Protocol: Activity Type Activity Date Activity User E-sign Co-sign Detail Recorded Client Recorded Date Recorded By Document 09/18/24 00:00 [id number] 09/18/24 00:07 MATTEO 09/18/24 00:00 NIH Stroke [...] Oriented [Total] -Coma Scale Total 15 09/18/24 2786 <Electronically signed by Trixie Jeronimo MD> Cosigner Signature (if applicable): CC: ~ Signed [facility] Work Phone: 1(673) 321-873108-12-2025 Progress note [facility] Medical Records Department [address] [place] [address] Progress Note - Neurology 09/18/24 1707 MR#: [id number] Acct: [id number] Name: TYLOR PEDERSEN Rep #:[id number] : 1940 83 From: Trixie Jeronimo MD PCP: Dr. Shayne Zaidi MD Status:ADM MARICARMEN Location: [place] [address] Assessment and Plan: Neuro Assessment/Plan TYLOR PEDERSEN [...] touch bilaterally -? Coordination: No dysmetria on xpsvns-cnce-hhvfpj, LLE ataxia -? Gait- deferred EEG Results [...] 80.5 H, Lymph % (Auto) 7.0 L, [place] % (Auto) 5.8, Eos % (Auto) 4.7, [...] IMPRESSION: No acute intracranial abnormality. Reading Location: [facility] NIHSS NIHSS Nursing Documentation NIHSS Nursing Documentation: NIHSS: Ischemic Stroke/TIA Start: 09/17/24 15:57 Text: For PCU Patients: NIH and Neuro Check every 4 Status: Complete hours, PRN and with change in RN caregiver. Freq: [id number] Protocol: Activity Type Activity Date Activity User E-sign Co-sign Detail Recorded Client Recorded Date Recorded By Document 09/18/24 00:00 MATTEO [id number] 09/18/24 00:07 MATTEO 09/18/24 00:00 NIH Stroke [...] Oriented [Total] -Coma Scale Total 15 09/18/24 0016 Cosigner Signature (if applicable): CC: ~ Signed [facility]08-12-2025 Telephone encounter Note* Telephone Encounter - Ge Will LPN - 09/18/2024 2:33 PM EDT Received neuro consult from [facility]. Placed in provider's inbox for review. Route to MA scanning [facility]08-12-2025 Miscellaneous Notes* Telephone Encounter - Ge Will LPN - 09/18/2024 2:33 PM EDT Received neuro consult from [facility]. Placed in provider's inbox for review. Route to [place] scanning [facility] Progress note Author Trevor Burton [facility] Note Date/Time September 18, 2024 12 :19pm [facility] Medical Records Department [address] [place] [address] Progress Note - Hospitalist 09/18/24 0817 MR#: [id number] Acct: [id number] Name: TYLOR PEDERSEN Rep #:[id number] : 1940 83 From: Trevor Moody PCP: Dr. Shayne Zaidi MD Status:ADM MARICARMEN Location: [place] [address] Reason for Visit Chief Complaint: Confusion Objective [...] 80.5 H, Lymph % (Auto) 7.0 L, [place] % (Auto) 5.8, Eos % (Auto) 4.7, [...] IMPRESSION: No acute intracranial abnormality. Reading Location: [id number] Head/Neck CTA 09/17/24 15:00 IMPRESSION: No significant stenosis in the head and neck. No dissection. No aneurysm. Reading Location: [facility] Physical Exam Narrative Seen and examined Patient [...] with an occluded right coronary artery and aglt-wz-jvvwm collaterals evident. Continue baby aspirin, statin therapy, [...] 80.5 H, Lymph % (Auto) 7.0 L, [place] % (Auto) 5.8, Eos % (Auto) 4.7, [...] TSH 1.410 Charges/Coding Visit Charges Inpatient E&M: 31961 Subs Hosp L2 NIHSS NIHSS Nursing Documentation NIHSS Nursing Documentation: NIHSS: Ischemic Stroke/TIA Start: 09/17/24 15:57 Text: For PCU Patients: NIH and Neuro Check every 4 Status: Complete hours, PRN and with change in RN caregiver. Freq: [id number] Protocol: Activity Type Activity Date Activity User E-sign Co-sign Detail Recorded Client Recorded Date Recorded By Document 09/18/24 00:00 MATTEO [id number] 09/18/24 00:07 MATTEO 09/18/24 00:00 NIH Stroke [...] Cosigner Signature (if applicable): CC: ~ Signed [facility] Work Phone: 1(348) 732-294608-12-2025 Progress note [facility] Medical Records Department [address] [place] [address] Progress Note - Hospitalist 09/18/24816 MR#: [id number] Acct: [id number] Name: TYLOR PEDERSEN Rep #:[id number] : 1940 83 From: Trevor Moody PCP: Dr. Shayne Zaidi MD Status:ADM MARICARMEN Location: [place] [address] Reason for Visit Chief Complaint: Confusion Objective [...] 80.5 H, Lymph % (Auto) 7.0 L, [place] % (Auto) 5.8, Eos % (Auto) 4.7, [...] IMPRESSION: No acute intracranial abnormality. Reading Location: [id number] Head/Neck CTA 09/17/24 15:00 IMPRESSION: No significant stenosis in the head and neck. No dissection. No aneurysm. Reading Location: [facility] Physical Exam Narrative Seen and examined Patient [...] with an occluded right coronary artery and geux-hv-terjb collaterals evident. Continue baby aspirin, statin therapy, [...] 80.5 H, Lymph % (Auto) 7.0 L, [place] % (Auto) 5.8, Eos % (Auto) 4.7, [...] TSH 1.410 Charges/Coding Visit Charges Inpatient E&M: 27310 Subs Hosp L2 NIHSS NIHSS Nursing Documentation NIHSS Nursing Documentation: NIHSS: Ischemic Stroke/TIA Start: 09/17/24 15:57 Text: For PCU Patients: NIH and Neuro Check every 4 Status: Complete hours, PRN and with change in RN caregiver. Freq: [id number] Protocol: Activity Type Activity Date Activity User E-sign Co-sign Detail Recorded Client Recorded Date Recorded By Document 09/18/24 00:00 MATTEO [id number] 09/18/24 00:07 JG 09/18/24 00:00 NIH Stroke [...] Cosigner Signature (if applicable): CC: ~ Signed [facility]08-12-2025 Consult note Author Trixie Jeronimo [facility] Note Date/Time September 18, 2024 7: 28am [facility] Medical Records Department [address] [place] [address] Consultation - Neurology 09/17/24 1212 MR#: [id number] Acct: [id number] Name: TYLOR PEDERSEN Rep #:[id number] : 1940 83 From: Trixie Jeronimo MD PCP: Dr. Shayne Zaidi MD Status:ADM MARICARMEN Location: [place] [address] Assessment and Plan: Neuro Assessment/Plan TYLOR PEDERSEN [...] INR trending to now re-presents to the [facility] ED on 09/16/2024 with history of reported [...] touch bilaterally -? Coordination: No dysmetria on jjwoxj-aoyf-buuhda, LLE ataxia -? Gait- deferred [facility] Medical History Atherosclerosis of coronary artery of [place] heart without angina pectoris Prostate CA Stroke [...] (Auto) 85.4 H, Lymph % (Auto) 4.6 L,[place] % (Auto) 4.1, Eos % (Auto) 3.7, [...] Clarity Clear, Urine pH 7.0, Ur Specific [place] 1.010, Urine Protein 30 H, Urine Glucose [...] 85.0 H, Lymph % (Auto) 4.6 L, [place] % (Auto) 4.8, Eos % (Auto) 3.5, [...] IMPRESSION: No acute intracranial finding. Reading Location: [facility] Chest X-Ray 09/16/24 20:10 IMPRESSION: No Acute Findings. Reading [facility] Active Medications Active Medications Active Medications: [...] mls @ 15 mls/hr 09/16/24 22:07 IV .[id number] PRN Saline Flush Sodium Chloride 250 mls @ 15 mls/hr 09/16/24 22:07 IV .[id number] PRN Additional IVPB Infusion Levothyroxine Sodium 50 mcg 09/17/24 06:00 09/17/24 01:21 Levothyroxine 50 Mcg Tablet PO Not Given DAILY@0600 [facility] Losartan Potassium 50 mg 09/17/24 10:00 09/17/24 [...] applicable): CC: Dr. Shayne Zaidi MD~ Signed [facility] Work Phone: 1(210) 119-623808-12-2025 Consult note [facility] Medical Records Department [address] [place] [address] Consultation - Neurology 09/17/24 1212 MR#: [id number] Acct: [id number] Name: TYLOR PEDERSEN Rep #:[id number] : 1940 83 From: Trixie Jeronimo MD PCP: Dr. Shayne Zaidi MD Status:ADM MARICARMEN Location: [place] [address] Assessment and Plan: Neuro Assessment/Plan TYLOR PEDERSEN [...] INR trending to now re-presents to the [facility] ED on 09/16/2024 with history of reported [...] touch bilaterally -? Coordination: No dysmetria on hencfo-ubec-dtvcqo, LLE ataxia -? Gait- deferred [facility] Medical History Atherosclerosis of coronary artery of [place] heart without angina pectoris Prostate CA Stroke [...] (Auto) 85.4 H, Lymph % (Auto) 4.6 L,[place] % (Auto) 4.1, Eos % (Auto) 3.7, [...] Clarity Clear, Urine pH 7.0, Ur Specific [place] 1.010, Urine Protein 30 H, Urine Glucose [...] 85.0 H, Lymph % (Auto) 4.6 L, [place] % (Auto) 4.8, Eos % (Auto) 3.5, [...] IMPRESSION: No acute intracranial finding. Reading Location: [id number] Chest X-Ray 09/16/24 20:10 IMPRESSION: No Acute Findings. Reading Location: [facility] Active Medications Active Medications Active Medications: [...] mls @ 15 mls/hr 09/16/24 22:07 IV .[id number] PRN Saline Flush Sodium Chloride 250 mls @ 15 mls/hr 09/16/24 22:07 IV .[id number] PRN Additional IVPB Infusion Levothyroxine Sodium 50 mcg 09/17/24 06:00 09/17/24 01:21 Levothyroxine 50 Mcg Tablet PO Not Given DAILY@0600 [facility] Losartan Potassium 50 mg 09/17/24 10:00 09/17/24 [...] 25 Mg Tablet PO 25 mg DAILY [facility] Administration Protocol Warfarin Sodium 5 mg 09/17/24 17:00 Warfarin 5 Mg Tablet PO 1700 FRANNY 09/18/24 0728 Cosigner Signature (if applicable): CC: Dr. Shayne Zaidi MD~ Signed [facility]08-11-2025 Radiology Diagnostic study note [facility] Imaging Services [address] [place], [place] [address] CTA Head AND Neck W/ Contrast MR#: [id number] Acct: [id number] Name: TYLOR PEDERSEN Rep #: [id number] : 1940 M 83 From: Bonnie Lveine MD PCP: Dr. Shayne Zaidi MD Status: ADM MARICARMEN Study:CTA Head AND Neck W/ Contrast Date of E xam: 09/17/24 Exam# [id number] Ordering Dr: Archie Burton MD PROCEDURE: CTA [...] RIGHT Vertebral: Patent LEFT Vertebral: Patent Anatomy: [place] of [place] anatomy is normal. Aneurysm or [...] neck. No dissection. No aneurysm. Reading Location: [facility] CC: Dr. Shayne Zaidi MD; Dr. Trevor Burton MD ~ [place] Operator: Signed [facility]08-11-2025 Progress note Author Trevor Burton [facility] Note Date/Time September 17, 2024 9: 07am [facility] Medical Records Department [address] [facility] [place] [address] Progress Note - Hospitalist 09/17/2430 MR#: [id number] Acct: [id number] Name: TYLOR PEDERSEN Rep #:[id number] : 1940 83 From: Trevor Moody PCP: Dr. Shayne Zaidi MD Status:ADM MARICARMEN Location: [place] [address] Reason for Visit Chief Complaint: Confusion Objective [...] (Auto) 85.4 H, Lymph % (Auto) 4.6 L,[place] % (Auto) 4.1, Eos % (Auto) 3.7, [...] Clarity Clear, Urine pH 7.0, Ur Specific [place] 1.010, Urine Protein 30 H, Urine Glucose [...] 85.0 H, Lymph % (Auto) 4.6 L, [place] % (Auto) 4.8, Eos % (Auto) 3.5, [...] IMPRESSION: No acute intracranial finding. Reading Location: [facility] Chest X-Ray 09/16/24 20:10 IMPRESSION: No Acute Findings. Reading Location: [facility] Physical Exam Narrative Seen and examined Patient is hard of hearing using hearing aid . He told he is a [place] and month October. Physical exam General: Awake, [...] with an occluded right coronary artery and czkw-bw-pbllt collaterals evident. Continue baby aspirin, statin therapy, [...] (Auto) 85.4 H, Lymph % (Auto) 4.6 L,[place] % (Auto) 4.1, Eos % (Auto) 3.7, [...] Clarity Clear, Urine pH 7.0, Ur Specific [place] 1.010, Urine Protein 30 H, Urine Glucose [...] 85.0 H, Lymph % (Auto) 4.6 L, [place] % (Auto) 4.8, Eos % (Auto) 3.5, [...] TSH 2.330 Charges/Coding Visit Charges Inpatient E&M: 92952 Subs Hosp L2 09/17/24 0907 <Electronically signed by Trevor Burton MD> Cosigner Signature (if applicable): CC: ~ [facility] Work Phone: 1(904) 641-790608-11-2025 Telephone encounter Note* Telephone Encounter - Ge Will LPN - 09/17/2024 9:42 AM EDT Received visit summary from [facility]. Placed in provider's inbox for review. Route to MA scanning [facility]08-11-2025 Miscellaneous Notes* Telephone Encounter - Ge Will LPN - 09/17/2024 9:42 AM EDT Received visit summary from [facility]. Placed in provider's inbox for review. Route to MA scanning [facility] Progress note [facility] Medical Records Department [address] [place] [address] Progress Note - Hospitalist 09/17/24 0830 MR#: [id number] Acct: [id number] Name: TYLOR PEDERSEN Rep #:[id number] : 1940 83 From: Trevor Moody PCP: Dr. Shayne Zaidi MD Status:ADM MARICARMEN Location: [place] [address] Reason for Visit Chief Complaint: Confusion Objective [...] (Auto) 85.4 H, Lymph % (Auto) 4.6 L,[place] % (Auto) 4.1, Eos % (Auto) 3.7, [...] Clarity Clear, Urine pH 7.0, Ur Specific Leckrone 1.010, Urine Protein 30 H, Urine Glucose [...] 85.0 H, Lymph % (Auto) 4.6 L, [place] % (Auto) 4.8, Eos % (Auto) 3.5, [...] IMPRESSION: No acute intracranial finding. Reading Location: [facility] Chest X-Ray 09/16/24 20:10 IMPRESSION: No Acute Findings. Reading Location: [facility] Physical Exam Narrative Seen and examined Patient is hard of hearing using hearing aid . He told he is a [place] 86 and month October. Physical exam General: [...] with an occluded right coronary artery and ymna-ho-gcauy collaterals evident. Continue baby aspirin, statin therapy, [...] (Auto) 85.4 H, Lymph % (Auto) 4.6 L,[place] % (Auto) 4.1, Eos % (Auto) 3.7, [...] Clarity Clear, Urine pH 7.0, Ur Specific Leckrone 1.010, Urine Protein 30 H, Urine Glucose [...] 85.0 H, Lymph % (Auto) 4.6 L, [place] % (Auto) 4.8, Eos % (Auto) 3.5, [...] TSH 2.330 Charges/Coding Visit Charges Inpatient E&M: 01806 Subs Hosp L2 09/17/24 0907 Cosigner Signature (if applicable): CC: ~ [facility]igned [facility]08-10-2025 Discharge summary Author Chris Cole [facility] Note Date/Time September 16, 2024 9: 54pm [facility] Medical Records Department [address] [place] [address] Emergency Department Summary 09/16/24 MR#: [id number] Acct: [id number] Name: TYLOR PEDERSEN Rep #:[id number] : 1940 83 From: Chris Cole DO PCP: Dr. Shayne Zaidi MD Status:ADM MARICARMEN Location: [place] [address] HPI History of Present Illness Chief Complaint: [...] feeling anxious he really has no complaints. 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 Reading Location: [facility] 1 view chest x-ray obtained interpreted by [...] MD [Primary Care Provider] - Print Language: Macedonian What to do if you have Problems For any increased pain, shortness of breath, bleeding, nausea or vomiting, chestpain, or any unexpected problems, contact your Primary Care Provider. Call [facility] ([phone]) or report to the closest Emergency Room. Call 911 if necessary. 09/16/242153 <Electronically signed by Chris Cole DO> Cosigner Signature (if applicable): CC: Dr. Shayne Zaidi MD ~ [facility]igned [facility] Work Phone: 1(907) 252-798608-10-2025 History and physical note Author Olivia Walters [facility] Note Date/Time September 16, 2024 9: 41pm [facility] Medical Records Department [address] [place] [address] H&P Exam - Hospitalist 09/16/242118 MR#: [id number] Acct: [id number] Name: TYLOR PEDERSEN Rep #:[id number] : 1940 83 From: Olivia Walters MD PCP: Dr. Shayne Zaidi MD Status:ADM MARICARMEN Location: [place] [address] HPI - General General Date of Admission: [...] INR trending to now re-presents to the [facility] ED on 09/16/2024 with history of reported [...] medication. In the ED patient administered MIVFs. 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 Reading Location: [facility] Assessment & Plan Assessment/Plan (1) Altered mental [...] INR trending to now re-presents to the [facility] ED on 09/16/2024 with history of reported [...] with an occluded right coronary artery and enob-qw-irvvz collaterals evident, will continue baby aspirin, Coumadin [...] Full Code. Charges/Coding Visit Charges Inpatient E&M: 83755 Init Hosp L3 09/16/24 6048 <Electronically signed by Olivia Walters MD> Cosigner Signature (if applicable): CC: Dr. Olivia Walters MD; Dr. Shayne Zaidi MD~ [facility]igned [facility] Work Phone: 1([phone]) 429-932308-10-2025 Discharge summary [facility] Medical Records Department [address] [place] [address] Emergency Department Summary 09/16/24 MR#: [id number] Acct: [id number] Name: TYLOR PEDERSEN Rep #:[id number] : 1940 83 From: Chris Cole DO PCP: Dr. Shayne Zaidi MD Status:ADM MARICARMEN Location: [place] [address] HPI History of Present Illness Chief Complaint: [...] feeling anxious he really has no complaints. 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 Reading Location: [facility] 1 view chest x-ray obtained interpreted by [...] MD [Primary Care Provider] - Print Language: Macedonian What to do if you have Problems For any increased pain, shortness of breath, bleeding, nausea or vomiting, chestpain, or any unexpected problems, contact your Primary Care Provider. Call [facility] ([phone]) or report tothe closest Emergency Room. Call 911 if necessary. 09/16/242153 Cosigner Signature (if applicable): CC: Dr. Shayne Zaidi MD ~ [facility]igned [facility]08-10-2025 History and physical note [facility] Medical Records Department [address] [facility] [place] [address] H&P Exam - Hospitalist 09/16/242118 MR#: [id number] Acct: [id number] Name: TYLOR PEDERSEN Rep #:[id number] : 1940 83 From: Olivia Walters MD PCP: Dr. 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 Reading Location: [facility] Assessment & Plan Assessment/Plan (1) Altered mental [...] INR trending to now re-presents to the [facility] ED on 09/16/2024 with history of reported [...] with an occluded right coronary artery and dqdc-qp-vovbo collaterals evident, will con tinue baby aspirin, [...] Full Code. Charges/Coding Visit Charges Inpatient E&M: 59381 Init Hosp L3 09/16/24 2141 Cosigner Signature (if applicable): CC: Dr. Olivia Walters MD; Dr. Shayne Zaidi MD~ [facility]igned [facility]08-10-2025 Radiology Diagnostic study note [facility] Imaging Services [address] [place], [place] [address] Chest 1 View (Portable) MR#: [id number] Acct: [id number] Name: TYLOR PEDERSEN Rep #: [id number] : 1940 M 83 From: Ishaan Braden MD PCP: Dr. Shayne Zaidi MD Status: ADM MARICARMEN Study:Chest 1 View (Portable) Date of Exam: 09/16/24 Exam# [id number] Ordering Dr: Chani Cole DO PROCEDURE: CHEST [...] (Portable) IMPRESSION: No Acute Findings. [facility] CC: Dr. Shayne Zaidi MD; Dr. Chris Cole DO ~ [place] Operator: Signed [facility]08-10-2025 Radiology Diagnostic study note [facility] Imaging Services [address] [facility] [place], [place] [address] Brain/Head without Contrast MR#: [id number] Acct: [id number] Name: TYLOR PEDERSEN Rep #: [id number] : 1940 M 83 From: Fatmata Tesfaye MD PCP: Dr. Shayne Zaidi MD Status: REG ER Study:Brain/Head without Contrast Date of Exa m: 09/16/24 Exam# [id number] Ordering Dr: Chani Cole DO EXAM: BRAIN/HEAD [...] IMPRESSION: No acute intracranial finding. Reading Location: [facility] CC: Dr. Shayne Zaidi MD; Dr. Chris Cole DO ~ [place] Operator: Signed [facility]08-06-2025 Progress note Author Aayush Sibley [facility] Note Date/Time September 12, 2024 3:0 9pm [facility] Medical Records Department [address] [place] [address] Progress Note - Hospitalist 09/11/24 1616 MR#: [id number] Acct: [id number] Name: TYLOR PEDERSEN Rep #:[id number] : 1940 83 From: Aayush Sibley DO PCP: Dr. Shayne Zaidi MD Status:ADM IN Location: [place] [address] 1 Reason for Visit Chief Complaint: Shortness [...] 50 minutes Charges/Coding Visit Charges Inpatient E&M: 16737 Subs Hosp L3 09/12/24 1509 <Electronically signed by Aayush Sibley DO> Cosigner Signature (if applicable): CC: ~ [facility]igned [facility] Work Phone: 1([phone] 380-266808-06-2025 Discharge summary Author [facility]ush [facility] Note Date/Time September 12, 2024 3:0 3pm [facility] Medical Records Department [address] [facility] [place] [address] Instructions for Home/Discharge Instructions 09/12/24 1439 MR#: [id number] Acct: [id number] Name: TYLOR PEDERSEN Rep #:[id number] : 1940 83 From: Aayush Sibley DO [...] rechecked) Jenny Yancey PA [Med Staff - [facility]] - Within 2 Weeks (Call for an appointment) Disposition Disposition (needs filled in before D/C Order can be placed): Home, Self Care 09/12/24 1498<Electronically signed by Aayush Sibley DO>Aayush Sibley DO [...] MD; JI Valencia; JI Burgos ~ Signed [facility] Work Phone: 1(833) 674-288708-06-2025 Progress note [facility] Medical Records Department [address] [place] [address] Progress Note - Hospitalist 09/11/24 1616 MR#: [id number] Acct: [id number] Name: TYLOR PEDERSEN Rep #:[id number] : 1940 83 From: Aayush Sibley DO PCP: Dr. Shayne Zaidi MD Status:ADM IN Location: [place] [address] Reason for Visit Chief Complaint: Shortness of [...] 50 minutes Charges/Coding Visit Charges Inpatient E&M: 73271 Subs Hosp L3 09/12/24 1508 Cosigner Signature (if applicable): CC: ~ Signed [facility]08-06-2025 Discharge summary [facility] Medical Records Department [address] [place] [address] Instructions for Home/Discharge Instructions 09/12/24 1434 MR#: [id number] Acct: [id number] Name: TYLOR PEDERSEN Rep #:[id number] : 1940 83 From: Aayush Sibley DO [...] Burden; Martínez Mclean; Omar Hidalgo; Tylor Rose GAS APPLIANCE REPAIRER; Jenny Yancey PA; Moses Alexis Discharge Orders/Prescriptions [...] rechecked) Jenny Yancey PA [Med Staff - [facility]] - Within 2 Weeks (Call [...] Martínez Mclean MD; JI Valencia;JI Burgos ~ [facility]08-06-2025 [facility] Medical Records Department [address] [place] [address] Discharge Summary 09/12/24 1503 MR#: [id number] Acct: [id number] Name: TYLOR PEDERSEN Rep #: [id number] : 1940 83 From: Aayush Sibley DO PCP: Dr. Shayne Zaidi MD Status:DIS IN [facility] Prov[facility] Date of Admission: 09/10/24 Date of Discharge: 09/12/24 Primary Care Physician: Dr. Shayne Zaidi MD Consultations 09/10/24 02:01 Consult: Cardiology Routine Consulting Provider: [facility] Reason for Consult: AE CHF, [...] male was directly admitted to PCU from [place] emergency room with complaints of shortness of breath, chest pain, anxiety, and generalized weakness. Workup at [place] ER included chest x-ray which revealed right [...] atraumatic and moist (more content not included)... [facility] Hospital Discharge instructionsAdditional Instructions Date of Discharge: 09/12/24[facility] Work Phone: 1(382) 629-834808-06-2025 Radiology Diagnostic study note [facility] Imaging Services [address] [place] [address] Chest PA and Lateral MR#: [id number] Acct: [id number] Name: TYLOR PEDERSEN Rep #: [id number] : 1940 M 83 From: Fatmata Hamlin MD PCP: Dr. Shayne Zaidi MD Status: ADM IN Study:Chest PA and Lateral Date of Exam: 09/12/24 Exam# [id number] Ordering Dr: Aayush Adams DO PROCEDURE: CHEST [...] seen on recent comparison CT Reading Location: [facility]- CC: Dr. Shayne Zaidi MD; Dr. Aayush Sibley DO ~ [place] Operator: Signed [facility]08-05-2025 Procedure note [facility] Speech Pathology [address] [place] [address] Modified Barium Swallow Study MR#: [id number] Acct: [id number] Name: TYLOR PEDERSEN Rep #:[id number] : 1940 83 From: Uyen Silva Modified [...] palpitations, or GI/ symptoms. A CXR at [place] ER showed right hemidiaphragm elevation and left [...] Result: 5= enters airways/contacts vocal folds/not ejected [place] [address] Thick Liquid via small single sip: cup: Result: 2= enter airway/above vocal folds/ejected [address] Thick Liquid via small single sip: cup Trial 2: Result: 3= enters airways/above vocal folds/not ejected [address] Thick Liquid via small single sip: cup [...] Cookie: Result: 1= does not enter airway [address] Thick Liquid via small single sip: cup [...] Status Active ST Patient: Active Contact Information [facility] Therapy:: Uyen Silva M.A., CCC-ELEVATOR DISPATCHER Speech-Language Pathologist [facility] [phone]? ?FAX [phone]? ?[email or web address] [address] [place] [address]? ?[place] [address] 09/11/24 1330 > Date/Time Uyen Silva Co-Signature Required for all Medicare patients Date/Time Co-Signature CC: ~ [facility]08-[facility]-2025 Progress note Author Dallas Muller [facility] Note Date/Time September 11, 2024 7:4 4am [facility] Medical Records Department [address] [place] [address] [place] [address] Progress Note - Cardiology 09/11/24 0741 MR#: [id number] Acct: [id number] Name: TYLOR PEDERSEN Rep #:[id number] : 1940 83 From: Dallas Muller MD PCP: Dr. Shayne Zaidi MD Status:ADM IN Location: [place] [address] Subjective Subjective Patient seen and evaluated Objective [...] was an occluded right coronary artery with rhan-ig-hddgy collaterals. * In light of his negative [...] will continue with high intensity statin. 09/11/24 9647 <Electronically signed by Dallas Muller MD> Cosigner Signature (if applicable): CC: ~ Signed [facility] Work Phone: 1(963) 791-169608-05-2025 Progress note [facility] Medical Records Department [facility] [place] [address] Progress Note - Cardiology 09/11/24 0741 MR#: [id number] Acct: [id number] Name: TYLOR PEDERSEN Rep #:[id number] : 1940 83 From: Dallas Muller MD PCP: Dr. Shayne Zaidi MD Status:ADM IN Location: [place] [address] Subjective Subjective Patient seen and evaluated Objective [...] was an occluded right coronary artery with zsmp-ao-iymeh collaterals. * In light of his negative [...] Cosigner Signature (if applicable): CC: ~ Signed [facility]08-04-2025 Progress note Author Aayush Sibley [facility] Note Date/Time September 10, 2024 7:2 6pm [facility] Medical Records Department [address] [place] [address] Progress Note - Hospitalist 09/10/241924 MR#: [id number] Acct: [id number] Name: TYLOR PEDERSEN Rep #:[id number] : 1940 83 From: Aayush Sibley DO PCP: Dr. Shayne Zaidi MD Status:ADM IN Location: [place] [address] Hospitalist Note Patient was seen and examined [...] Cosigner Signature (if applicable): CC: ~ Signed [facility] Work Phone: 1(802) 118-527808-04-2025 Progress note [facility] Medical Records Department [address] [place] [address] Progress Note - Hospitalist 09/10/241924 MR#: [id number] Acct: [id number] Name: TYLOR PEDERSEN Rep #:[id number] : 1940 83 From: Aayush Sibley DO PCP: Dr. Shayne Zaidi MD Status:ADM IN Location: [place] [address] Hospitalist Note Patient was seen and examined briefly today, I have reviewed his medical record,I think that it is unlikely the patient has a significant aspiration pneumonia, nonetheless, I have elected to keep thepatient on antibiotics for now but transition him over to oral antibiotics. I talked briefly with cardiology, theyrecommended adjusting the patient's beta-karis. 09/10/241925 Cosigner Signature (if applicable): CC: ~ Signed [facility]08-04-2025 Consult note Author Dallas Muller [facility] Note Date/Time September 10, 2024 8:0 3am [facility] Medical Records Department [address] [place] [address] Consultation - Cardiology 09/10/24750 MR#: [id number] Acct: [id number] Name: TYLOR PEDERSEN Rep #:[id number] : 1940 83 From: Dallas Muller MD PCP: Dr. Shayne Zaidi MD Status:ADM IN Location: [place] [address] Assessment & Plan Assessment/Plan (1) Paroxysmal atrial [...] was an occluded right coronary artery with zzrt-mm-rioie collaterals. * In light of his negative [...] per se. He was apparently sent to [place] emergencyroom and a chest x-ray that I [...] is pleasantly confused but no other problems. 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 Reading Location: [place] [address] 09/10/24 0803 <Electronically signed by Dallas Muller MD> Cosigner Signature (if applicable): CC: Dr. Shayne Zaidi MD~ Signed [facility] Work Phone: 1(631) 722-712108-04-2025 NoteHNO ID: [id number] Author: SERA KLINE RN Service: ? Author Type: Registered Nurse Type: Progress Notes Filed: 09/10/2024 10:00 Note Text: Summary: ED Utilization review per request of eula Saab ED Follow-Up Note Provider Action / FYI: Chest pain, pneumonia, CHF Call completed by: RN Patient seen in ED: In Network ED Contact made with Patient: Karen Pt was transferred to [facility] for admission 09/09/24. Sera Kline RN September 10, 2024 9:53 [facility]08-04-2025 History of Present illness Narrative* Sera Kline RN - 09/10/2024 9:51 AM EDTSummary: ED Utilization review per request of payor - [employer] ED Follow-Up Note Provider Action / FYI: Chest pain, pneumonia, CHF Call completed by: RN Patient seen in ED: In [facility] ED Contact made with Patient: Karen Pt was transferred to [facility] for admission 09/09/24. Sera Kilne RN September 10, 2024 9:53 AM [facility] History and physical note Author Kristopher Diamond [facility] Note Date/Time September 10, 2024 6:2 5am [facility] Medical Records Department [address] [place] [address] H&P Exam - Hospitalist 09/10/24 0118 MR#: [id number] Acct: [id number] Name: TYLOR PEDERSEN Rep #:[id number] : 1940 83 From: Kristopher Yusuf DO PCP: Dr. Shayne Zaidi MD Status:ADM IN Location: [facility] [id number]- 1 HPI - General General Date of [...] apnea; on CPAP, CAD; s/p non-ST elevation LA with subsequent CABG x 2 (1992) and [...] hours as needed who was transferred from [place] ER with complaints of shortness of breath, [...] dysuria, hematuria, headache, confusion or rash. At [place] ER he was noted to have a [...] is expected to extend beyond 2 midnights. 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 Kristopher Valencia, DO ENTERED: 09/10/24-[address] [facility] [address]: Dr. Shayne Zaidi MD ~ Test [...] the following risk-cutoff thresholds for the [place] population. TRIG 42 mg/dL The drugs N-Acetylcysteine [...] and age. CHOL:HDL 2.30 CLDL 40 mg/dL Dqzhzjurtp=820-048 mg/dL & Higher Gekp=508 mg/dL or greater Friedwald Equation for LDL-C VLDL 8 5-40 mg/dL TSH 0.518 0.300-4.200 uIU/mL Vitamin B12 515 180-914 pg/mL proBNP 3825 H <=1800 pg/mL Heart Failure Unlikely: < 300 pg/mL Heart Failure Likely < 50 Years: > 450 pg/mL 50-75 Years: > 900 pg/mL >75 Years: > 1800 pg/mL ABG Data ABG results: RUN DATE: 09/10/24 [facility], DEPARTMENT OF LABORATORIES PAGE 1 RUN TIME: 0438 Specimen Inquiry [address], [place], [place], [address] PATIENT: TYLOR PEDERSEN LOC: [facility] U #: [id number] : 1940 AGE/SX: 83/M FACILITY: [facility] ROOM: [facility] RE09/10/[address]: Forest Wilkerson STATUS:ADM IN ED: 1 DIS: ~ SPEC #: [id number] ANASTACIO: 09/10/24 STATUS: COMP REQ #: [id number] RECD: 09/10/[address]: Dr. Kristopher Valencia [...] H 23-33 mmol/L END OF REPORT Imaging [facility] Imaging Services [address] [place] [address] Chest without Contrast MR#: [id number] Acct: [id number] Name: TYLOR PEDERSEN Rep #: [id number] : 1940 M 83 From: Jad Hamlin MD PCP: Dr. Shayne Zaidi MD Status: ADM IN Study: Chest without Contrast Date of Exam: 09/10/24 Exam# [id number] Ordering Dr: Kristopher Valencia DO PROCEDURE: CHEST [...] disease, correlate for aspiration pneumonia. Reading Location: [place] [address] CC: Dr. Kristopher Valencia DO; Dr. Shayne Zaidi MD ~ [place] Operator: Signed Assessment & Plan Assessment/Plan (1) [...] twice daily. Give acetaminophen as needed for vvqu-bs-bekzwqzv (level 1-5/10) pain or fever. Continue tramadol [...] previous. Serialize troponin. Finally, we will consult [facility] to see this patient on [...] 75 minutes. Charges/Coding Visit Charges Inpatient E&M: 59293 Init Hosp L3 09/10/24 0625 <Electronically signed by Kristopher Valencia DO> Cosigner Signature (if applicable): CC: Dr. Kristopher Valencia DO; Dr. Shayne Zaidi MD~ Signed [facility] [facility] Work Phone: [phone] 763-113708-04-2025 Consult note [facility] Medical Records Department [address] [place] [address] Consultation - Cardiology 09/10/24 0751 MR#: [id number] Acct: [id number] Name: TYLOR PEDERSEN Rep #:[id number] : 1940 83 From: Dallas Muller MD PCP: Dr. Shayne Zaidi MD Status:ADM IN Location: [place] [address] Assessment & Plan Assessment/Plan (1) Paroxysmal atrial [...] was an occluded right coronary artery with axak-be-ulsui collaterals. * In light of his negative [...] pain per se. He wasapparently sent to [place] emergencyroom and a chest x-ray that I [...] is pleasantly confused but no other problems. 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 Reading Location: [place] [address] 09/10/24 0803 Cosigner Signature (if applicable): CC: Dr. Shayne Zaidi MD~ [facility]08-04-2025 History and physical note [facility] Medical Records Department [address] [place] [address] H&P Exam - Hospitalist 09/10/24 0118 MR#: [id number] Acct: [id number] Name: TYLOR PEDERSEN Rep #:[id number] : 1940 83 From: Kristopher Yusuf DO PCP: Dr. Shayne Zaidi MD Status:ADM IN Location: [facility] [id number]- 1 [facility] - General General Date of Admission: 09/10/24 [...] apnea; on CPAP, CAD; s/p non-ST elevation LA with subsequent CABG x 2 (1992) and [...] hours as needed who was transferred from [place] ER with complaints of shortness of breath, [...] dysuria, hematuria, headache, confusion or rash. At [place] ER he was noted to have a [...] is expected to extend beyond 2 midnights. 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 Kristopher Valencia [...] the following risk-cutoff thresholds for the [place] population. TRIG 42 mg/dL The drugs N-Acetylcysteine [...] and age. CHOL:HDL 2.30 CLDL 40 mg/dL Hfjremtiir=817-725 mg/dL & Higher Humk=279 mg/dL or greater Friedwald Equation for LDL-C VLDL 8 5-40 mg/dL TSH 0.518 0.300-4.200 uIU/mL Vitamin B12 515 180-914 pg/mL proBNP 3825 H <=1800 pg/mL Heart Failure Unlikely: < 300 pg/mL Heart Failure Likely < 50 Years: > 450 pg/mL 50-75 Years: > 900 pg/mL >75 Years: > 1800 pg/mL ABG Data ABG results: RUN DATE: 09/10/24 [facility], DEPARTMENT OF LABORATORIES PAGE 1 RUN TIME: 0438 Specimen Inquiry [address] [place], [place], [address] PATIENT: TYLOR PEDERSEN LOC: [facility] U #: [id number] : 1940 AGE/SX: 83/M FACILITY: [facility] ROOM: [facility] RE09/10/[address]: Forest Wilkerson STATUS:ADM IN ED: 1 DIS: ~ SPEC #: [id number] ANASTACIO: 09/10/24 STATUS: COMP REQ #: [id number] RECD: 09/10/[address]: Dr. Kristopher Valencia, [...] H 23-33 mmol/L END OF REPORT Imaging [facility] Imaging Services [address] [place] [address] Chest without Contrast MR#: [id number] Acct: [id number] Name: TYLOR PEDERSEN Rep #: [id number] : 1940 M 83 From: Jad Hamlin MD PCP: Dr. Shayne Zaidi MD Status: ADM IN Study: Chest without Contrast Date of Exam: 09/10/24 Exam# [id number] Ordering Dr: Kristopher Valencia DO PROCEDURE: CHEST [...] disease, correlate for aspiration pneumonia. Reading Location: [place] [address] CC: Dr. Kristopher Valencia DO; Dr. Shayne Zaidi MD ~ Barratte Operator: Signed Assessment & Plan Assessment/Plan (1) [...] twice daily. Give acetaminophen as needed for nwdb-bk-dywnvmhb (level 1-5/10) pain or fever. Continue tramadol [...] previous. Serialize troponin. Finally, we will consult [facility] to see this patient on [...] 75 minutes. Charges/Coding Visit Charges Inpatient E&M: 73277 Init Hosp 09/10/24 0625 Cosigner Signature (if applicable): CC: Dr. Kristopher Valencia DO; Dr. Shayne Zaidi MD~ [facility]08-04-2025 Evaluation note* Diagnosis Onset [...] 1:26am HTN (hypertension) September 10, 2024 1:26am [facility] Work Phone: 1(288) 435-590108-04-2025 Evaluation note* Diagnosis Onset Date Resolution Status [...] 9:19pm Leukocytosis acute September 16, 2024 9:19pm [facility] Work Phone: 1(285) 478-489208-04-2025 Radiology Diagnostic study note [facility] Imaging Services [address] [place] [address] Chest without Contrast MR#: [id number] Acct: [id number] Name: TYLOR PEDERSEN Rep #: [id number] : 1940 M 83 From: Fatmata Hamlin MD PCP: Dr. Shayne Zaidi MD Status: ADM IN Study:Chest without Contrast Date of Exam: 09/10/24 Exam# [id number] Ordering Dr: Kristopher Yang DO PROCEDURE: CHEST [...] disease, correlate for aspiration pneumonia. Reading Location: [place] [address] CC: Dr. Kristopher Valencia DO; Dr. Shayne Zaidi MD ~ [place]atte Operator: [facility]igned [facility]08-04-2025 NotePatient Outreach (AMBCMG) TYLOR ([id number]) 1940 M Date Time Provider Department 09/10/24 SERA KLINEG During your visit today, we recorded the following information about you: Sera Kline RN 09/10/2024 10:00 AM Signed ED Follow-Up Note Provider Action / FYI: Chest pain, pneumonia, CHF Call completed by: RN Patient seen in ED: In Network ED Contact made with Patient: Karen Pt was transferred to [facility] for admission 09/09/24. Sera Kline RN September 10, 2024 9:53 AM Allergies As of Date: 09/10/2024 Noted Allergy Reaction ASPIRIN 04/19/2018 16 - Unknown OXYCODONE 04/19/2018 14 - Other: See Comments PERCODAN (OXYCODONE-ASPIRIN) 12/17/2004 1 - Mental Status Change Date Reviewed: 09/09/2024 Reviewed by: Daina Sampson RN - Fully Assessed Reason for Visit: ACM DELMIS RN [2102] Cmt: ED Utilization review per request of [...] Anxiety [F41.9] 12/23/2021 Atherosclerotic heart disease of chilkat coronar*10/19/2017 Cerebrovascular accident (CVA) (HCC) [I63.9] 12/23/2021 [...] 02/14/2024 Encounter Status:Closed by SERA KLINE on 09/10/24[facility] 09-09-2024 QabtMGSC-AOK-6 (AGENT OF COVID-19) RNA: Not detected INFLUENZA A RNA: Not detected INFLUENZA B RNA: Not detected RESPIRATORY SYNCYTIAL VIRUS (RSV) RNA: Not detectedBridgton HospitalComment on above:Performed By: #### [id number] #### [facility] CLIA [id number] [address] [place] [address] OF [id number] Telephone encounter Note* Telephone Encounter - Yudelka [...] seek emergency treatment and she verbalized understanding. [facility]08-02-2025 Miscellaneous Notes* Telephone Encounter - Yudelka Harris [...] and she verbalized understanding. documented in this encounterAdena [facility] System07-30-2025 Telephone encounter Note * Telephone Encounter - Shwetha Kendrick - 09/05/2024 4:33 PM EDT Lvm and letter Provider only at [place] now [facility]07-30-2025 Miscellaneous Notes* Telephone Encounter - Shwetha Kendrick - 09/05/2024 4:33 PM EDT Lvm and letter Provider only at [place] now documented in this encounterAdena Health System07-08-2025 Telephone encounter Note * Telephone Encounter - Vivi Shaffer MA - 08/14/2024 2:04 PM EDT Pharmacy verified in [facility] Patient has been identified by [...] Not applicable Please advise. Vivi Shaffer MA [facility]07-08-2025 Miscellaneous Notes* Telephone Encounter - Vivi Shaffer MA - 08/14/2024 2:04 PM EDT Pharmacy verified in [facility] Patient has been identified by [...] advise. Vivi Shaffer MA documented in this encounterAdena Health System06-06-2025 NoteHNO ID: [id number] Author: PADDY ZAIDI MD Service: ? Author Type: Physician Type: Progress Notes Filed: 07/13/2024 17:45 Note Text: Subjective Adrian Pedersen is an 83-year-old male with a history of anxiety, presenting with dyspnea, lower extremity edema, and anxiety attacks, accompanied by his caregiver, Hui Ray, who is providing additional history. Dyspnea atherosclerotic heart disease: Pending electophys eval in [place] in November. No regular third officer. 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 - [...] - Prescription sent to pharmacy. Recording using [employer] software for draft documentation of the visit was discussed with the patient/authorized advertising sales representative; all questions welcomed and answered. Patient/authorized advertising sales representative agreed to proceed Paddy Zaidi, [facility]06-06-2025 History of Present illness Narrative* Paddy Zaidi MD - 07/13/2024 5:40 PM EDT Subjective Adrian Pedersen is an 83-year-old male with a history of anxiety, presenting with dyspnea, lower extremity edema, and anxiety attacks, accompanied by his caregiver, Hui Ray, who is providing additional history. Dyspnea atherosclerotic heart disease: Pending electophys eval in [place] in November. No regular third officer. 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 - [...] - Prescription sent to pharmacy. Recording using [employer] software for draft documentation of the visit was discussed with the patient/authorized advertising sales representative; all questions welcomed and answered. Patient/authorized advertising sales representative agreed to proceed Paddy Zaidi MD documented in this encounterAdena Health System06-06-2025 Telephone encounter Note * Telephone Encounter - Trey Smith APRN.[facility] - 07/13/2024 4:37 PM EDT Review of OSH CT with most recent CT does not show worsening of right hemidiaphragm. Left lower lobe nodule no longer seen. Atelectasis in LLL but no further concern for PNA. Needs to complete overnight oxygen testing. [facility]06-06-2025 Miscellaneous Notes* Telephone Encounter - Trey Smiht APRN.CNP - 07/13/2024 4:37 PM EDT Review of OSH CT with most recent CT does not show worsening of right hemidiaphragm. Left lower lobe nodule no longer seen. Atelectasis in LLL but no further concern for PNA. Needs to complete overnight oxygen testing. documented in this encounterAdena Health System06-06-2025 Telephone encounter Note * Telephone Encounter - [...] ZAIDI Due for appt. Paddy Zaidi MD [facility]06-06-2025 Miscellaneous Notes* Telephone Encounter - Paddy Zaidi [...] 13, 2024 1:41 PM documented in this encounterAdena Health System06-06-2025 Telephone encounter Note * Telephone Encounter - Noemy Sumemrs LPN - 07/13/2024 1:40 PM EDT Prescription [...] Summers LPN July 13, 2024 1:41 PM [facility]06-05-2025 Telephone encounter Note* Telephone Encounter - Cassandra [...] Ann LPN July 12, 2024 11:46 AM [facility]06-05-2025 Miscellaneous Notes* Telephone Encounter - Cassandra Ann [...] 12, 2024 11:46 AM documented in this encounterAdena Health System05-27-2025 Telephone encounter Note * Telephone Encounter - [...] at this time or wait until OV? [facility]05-27-2025 Miscellaneous Notes* Telephone Encounter - Mary Zaldivar [...] 06/29/2024 3:43 PM EDT Called patient's healthcare management Hui and patient's son, no answer at this time. Left voicemail to call the office back. * Telephone Encounter - Georgiana Hogue APRN.DRAMATIC CRITIC - 06/29/2024 3:37 PM EDT Please advise the patient that his INR (no units) Date Value 06/29/2024 1.2 is very too low/subtherapeutic. INR has not been checked in 3 months. Has someone else been monitoring this? Is he taking coumadin? documented in this encounterAdena Health System05-23-2025 Telephone encounter Note * Telephone Encounter - Gloria Florian RN - 06/29/2024 3:43 PM EDT Called patient's healthcare management Hui and patient's son, no answer at this time. Left voicemail to call the office back. [facility]05-23-2025 Telephone encounter Note* Telephone Encounter - Georgiana Hogue APRN.CNP - 06/29/2024 3:37 PM EDT Please advise the patient that his INR (no units) Date Value 06/29/2024 1.2 is very too low/subtherapeutic. INR has not been checked in 3 months. Has someone else been monitoring this? Is he taking coumadin? [facility] Work Phone: 1(457) 810-157505-23-2025 NoteHNO ID: [id number] Author: TREY SMITH APRN.CNP Service: ? Author Type: Nurse Practitioner Type: Progress Notes Filed: 06/29/2024 19:32 Note Text: Pulmonary Medicine Patients name: Tylor Campbell PCP: Paddy Zaidi MD CC: follow-up HPI: Tylor Pedersen is a 83 year old male former 57-ierk-brko smoker quitting in 1992 with PMH significant for obesity, coronary artery disease s/p CABG and stent, previous stroke, GERD, HLD, prostate cancer s/p radiation, HTN, PAF on AC, central sleep apnea not wearing PAP, chronic hypoxemic respiratory failure. Current inhaled therapy Advair and PRN Albuterol. He presents today for follow-up with his construction operations manager. YOLANDA 03/2024 with exertional dyspnea, chest tightness and wheezing. Started on Advair at that time. Oximetry with ambulation at that time did not show need for supplemental O2 with exertion. He and his construction operations manager insist he can't even stand up without [...] appearance. He is not ill-appearing. Comments: Very TANANA HENT: Head: Normocephalic. Nose: No rhinorrhea. Mouth/Throat: Mouth: Mucous membranes are moist. Pharynx: No oropharyngeal exudate. Cardiovascular: (more content not included)...[facility] 06-21-2024 NoteHNO ID: [id number] Author: CORRINA FUENTES MA Service: ? Author Type: Program Advocate Type: Progress Notes Filed: 06/21/2024 08:30 Note Text: POPULATION HEALTH NAVIGATION OUTREACH Action/FYI Letter received and sent to be mailed. Navigation Signature: Corrina Fuentes MA June 21, 2024 8:30 [facility]05-14-2025 NoteHNO ID: [id number] Author: ANT DIAS MA Service: ? Author Type: Program Advocate Type: Progress Notes Filed: 06/20/2024 08:24 Note [...] Healthy at Home (H@H) phone number provided [phone]: Yes via letter Reason for Outreach Value [facility] Care Gaps due: Medicare Annual Wellness Visit Patient Contacted: Unable or unnecessary to reach patient: Unable to leave message Letter mailed Navigation Signature: Ant Dias MA June 20, 2024 8:22 [facility]05-13-2025 Telephone encounter Note* Telephone Encounter - [...] once daily. Authorizing Provider: PADDY ZAIDI MD [facility]05-13-2025 Miscellaneous Notes* Telephone Encounter - Paddy Zaidi [...] 18, 2024 1:48 PM documented in this encounterAdena Health System05-12-2025 Telephone encounter Note * Telephone Encounter - [...] Ann LPN June 18, 2024 1:48 PM [facility]05-12-2025 NoteHNO ID: [id number] Author: ANT DIAS MA Service: ? Author Type: Program Advocate Type: Progress Notes Filed: 06/18/2024 12:47 Note [...] Healthy at Home (H@H) phone number provided [phone]: No Reason for Outreach [facility] Care Gaps due: Medicare Annual Wellness Visit Patient Contacted: Unable or unnecessary to reach patient: Unable to leave message Navigation Signature: Ant Dias MA June 18, 2024 12:44 [facility]05-12-2025 History of Present illness Narrative* Ant Dias [...] Healthy at Home (H@H) phone number provided [phone]: No Reason for Outreach Value [facility] Care Gaps due: Medicare Annual Wellness [...] 18, 2024 12:28 PM documented in this encounterAdena Health System05-12-2025 NoteHNO ID: [id number] Author: MATTHEW STALLWORTH RN Service: ? Author [...] Matthew Stallworth RN June 18, 2024 12:28 [facility]05-12-2025 NotePatient Outreach (AMBCMG) TYLOR PEDERSEN ([id number]) 1940 M Date Time Provider Department 06/18/24 [facility] During your visit today, we recorded the [...] Healthy at Home (H@H) phone number provided [phone]: No Reason for Outreach [facility] [...] Healthy at Home (H@H) phone number provided [phone]: Yes via letter Reason for Outreach Value [facility] Care Gaps due: Medicare Annual Wellness [...] Date Reviewed: 03/27/2024 Reviewed by: Trey Smith APRN.DRAMATIC CRITIC - Fully Assessed Reason for Visit: Population Health Navigation Outreach [3910] Cmt: Value [facility] Prescriptions as of 06/21/2024 - furosemide [...] 09/26/2012 Obstructive sleep apnea (more content not included)...[facility] 04-26-2024 NoteHNO ID: [id number] Author: CASSANDRA FERREIRA MA Service: ? Author Type: Program Advocate Type: Progress Notes Filed: 04/26/2024 14:42 Note [...] Cassandra Ferreira MA April 26, 2024 2:37 [facility]03-20-2025 History of Present illness Narrative* Cassandra Ferreira [...] 26, 2024 2:37 PM documented in this encounterAdena Health System03-20-2025 NotePatient Outreach (NETNAV) TYLOR PEDERSEN ([id number]) 1940 M Date Time Provider Department 04/26/24 [...] Date Reviewed: 03/27/2024 Reviewed by: Trey Smith APRN.DRAMATIC CRITIC - Fully Assessed Reason for Visit: Population [...] Anxiety [F41.9] 12/23/2021 Atherosclerotic heart disease of chilkat coronar*10/19/2017 Cerebrovascular accident (CVA) (HCC) [I63.9] 12/23/2021 [...] 02/14/2024 Encounter Status:Closed by CASSANDRA FERREIRA on 04/26/24[facility] 04-09-2024 Miscellaneous Notes* Telephone Encounter - [...] 09, 2024 11:10 AM documented in this encounterAdena Health System03-03-2025 Telephone encounter Note * Telephone Encounter - [...] Ann LPN April 09, 2024 11:10 AM [facility]02-18-2025 History of Present illness Narrative* Pedro Samuels [...] PATIENT PRESENTS WITH AN IMPLANTABLE OR ATTACHED METALLIC YARN SLITTING MACHINE OPERATOR: No RADIOLOGY DEPARTMENT: CT; Exam(s) Completed: Chest PERIPHERAL IV DATA: Not applicable SIGNED BY: RT Alfonso(Lillie) March 27, 2024 3:57 PM documented in this encounterAdena Health System02-18-2025 NoteHNO ID: [id number] Author: PEDRO SAMUELS RT(R) Service: ? Author Type: Engraved Roller Inspector Type: Progress Notes Filed: 03/27/2024 15:57 Note [...] PATIENT PRESENTS WITH AN IMPLANTABLE OR ATTACHED METALLIC YARN SLITTING MACHINE OPERATOR: No RADIOLOGY DEPARTMENT: CT; Exam(s) Completed: Chest PERIPHERAL IV DATA: Not applicable SIGNED BY: RT Alfonso(R) March 27, 2024 3:57 [facility]02-18-2025 Instructions* Patient Instructions* Trey Smith APRN.CNP - [...] I get the results. documented in this encounterAdena Health System02-18-2025 History of Present illness Narrative* Trey Smith APRN.CNP - 03/27/2024 2:00 PM EST Images from the original note were not included. Pulmonary Medicine Patients name: Tylor Campbell PCP: Paddy Zaidi MD CC: follow-up HPI: Tylor Pedersen is a 83 year old male former 93-misv-iyhu smoker quitting in 1992 with PMH significant [...] Had also just previously been hospitalized at [facility] for Pneumonia. At his last visit, [...] chest tightness. Has frequent wheezing that promptshis construction operations manager to remind him to use Albuterol. No [...] 160-9-4.8 mcg/actuation HFA aerosol inhaler Generic drug: gauhbginqb-dcstsyrf-nhjfvzccfz Inhale 2 Puffs as instructed two times [...] which included preparing to see the patient, rqyz-kf-salo patient care, completing clinical documentation, performing a medically appropriate examination, counseling and educating the patient/family/caregiver, and ordering medications, tests,or procedures. documented in this encounterAdena Health System02-18-2025 NoteHNO ID: [id number] Author: TREY SMITH APRN.CNP Service: ? Author Type: Nurse Practitioner Type: Progress Notes Filed: 03/27/2024 17:53 Note Text: Pulmonary Medicine Patients name: Tylor Campbell PCP: Paddy Zaidi MD CC: follow-up HPI: Tylor Pedersen is a 83 year old male former 12-fuwx-hqdm smoker quitting in 1992 with PMH significant [...] Had also just previously been hospitalized at [facility] for Pneumonia. At his last visit, [...] tightness. 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 No [...] 160-9-4.8 mcg/actuation HFA aerosol inhaler Generic drug: zgidfdwdtf-ctcngvqf-fcyssgiqbu Inhale 2 Puffs as instructed two times [...] appearance. HENT: Head: Normoc (more content not included)...[facility]02-18-2025 NoteHNO ID: [id number] Author: MAYRA SIMS RPFT Service: ? Author [...] Supply Carrier Forehead 30 Wheeled Walker NAME: MRAY Guillaume PATIENT NAME: Tylor Pedersen DATE: March 27, 2024 TIME: 1:49 PM Comment: Patient does not have a faster paceOhio Valley Hospital02-18-2025 Procedure note* Mayra SimsMARY - 03/27/2024 [...] Patient does not have a faster pace [facility]02-18-2025 Procedure note* Mayra Sims RPFT - 03/27/2024 [...] have a faster pace documented in this encounterAdena Health System02-18-2025 NoteHNO ID: [id number] Author: MAYRA SIMS RPFT Service: ? Author Type: Respiratory Therapist Type: Progress Notes Filed: 03/27/2024 13:50 Note Text: PULM FUNCTION: Provider: Burton Huynh MD Assisting Tech: Mayra Sims RPFT [facility]xim[facility] - Ambulation[facility] History of Present illness Narrative* Mayra Sims RPFT - 03/27/2024 1:47 PM EST PULM FUNCTION: Provider: Burton Huynh MD Assisting Tech: Mayra Sims RPFT Oximetry - Ambulation: 1 documented in this encounterAdena Health System02-12-2025 Telephone encounter Note * Telephone Encounter - [...] this week, but they declined. Shena Muñoz [facility]02-12-2025 Miscellaneous Notes* Telephone Encounter - Shena Muñoz [...] warrant medical attention. BRENNAN documented in this encounterAdena Health System02-12-2025 Telephone encounter Note * Telephone Encounter - Hever Martínez APRN.CNP - 03/21/2024 12:52 PM EST Please offer appointment with Dr. Zaidi this week Hever Martínez APRN.CNP [facility]02-12-2025 Telephone encounter Note* Telephone Encounter - Isabell Sood RN - 03/21/2024 12:24 PM EST Hui states patient was supposed to have a refill of the Lasix after an OV on 02/14/2024, it was not prescribed. Has been out since that visit. Please address. Rx pended. [facility]02-12-2025 Miscellaneous Notes* Telephone Encounter - Isabell Sood RN - 03/21/2024 12:24 PM EST Hui states patient was supposed to have a refill of the Lasix after an OV on 02/14/2024, it was not prescribed. Has been out since that visit. Please address. Rx pended. documented in this encounterAdena Health System02-12-2025 Telephone encounter Note * Telephone Encounter - [...] ED if sx warrant medical attention. FYI [facility]02-12-2025 Telephone encounter Note* Telephone Encounter - Isabell Sood RN - 03/21/2024 11:56 AM EST Spoke to Hui and patient at length. Patient will take 7.5 mg of Coumadin tomorrow then resume taking 2.5 mg like he has been. Will have BW done around 03/29. Tracker done [facility]02-12-2025 Miscellaneous Notes* Telephone Encounter - Isabell Sood RN - 03/21/2024 11:56 AM EST Spoke to Hui and patient at length. Patient will take 7.5 mg of Coumadin tomorrow then resume taking 2.5 mg like he has been. Will have BW done around 03/29. Tracker done * Telephone Encounter - Natalia Massey RN - 03/19/2024 10:52 AM EST Called [phone]. No answer. Mailbox still full. * Telephone Encounter - Violetta Humphrey RN - 03/17/2024 9:30 AM EST Called Hui at [phone] Vm still full-could not leave message. Called [...] a day. Call Hui back with response [phone]-did advise her to clean out VM so [...] advise. Paddy Zaidi MD documented in this encounterCandace Ville [address]-11-2025 NoteHNO ID: [id number] Author: ELENITA DEY MA Service: ? Author Type: Program Advocate Type: Progress Notes Filed: 03/20/2024 16:32 Note [...] Elenita Dey MA March 20, 2024 4:29 [facility]CK[facility]-11-2025 History of Present illness Narrative* Elenita Dey [...] 20, 2024 4:29 PM documented in this encounterAdena Health System02-11-2025 NotePatient Outreach (LANRENAV) TYLRO PEDERSEN ([id number]) 1940 M Date Time Provider Department 03/20/24 [...] TABLET BY MOUTH ONCE DAILY DIRECTED - rpbwvcggas-phrjpdaq-vdzlqhgxgd (BREZTRI AEROSPHERE) 160-9-4.8 mcg/actuation HFA aerosol inhaler [...] Anxiety [F41.9] 12/23/2021 Atherosclerotic heart disease of chilkat coronar*10/19/2017 Cerebrovascular accident (CVA) (HCC) [I63.9] 12/23/2021 [...] 02/14/2024 Encounter Status:Closed by ELENITA DEY on 03/20/24[facility] 03-19-2024 Telephone encounter Note* Telephone Encounter - Natalia Massey RN - 03/19/2024 10:52 AM EST Called [phone]. No answer. Mailbox still full. [facility] [place]02-08-2025 Telephone encounter Note* Telephone Encounter - Violetta Humphrey RN - 03/17/2024 9:30 AM EST Called Hui at [phone] Vm still full-could not leave message. Called all other listed numbers- no answer. VM's are all full-could not leave message. Not active on MyChart. Will need to try again later. Violetta Humphrey RN [facility] [place]02-07-2025 Telephone encounter Note* Telephone Encounter - Paddy Zaidi MD - 03/16/2024 5:19 PM EST Just take 1 time dose of 5 mg. One extra pill just one dose. Check INR in 2 weeks Paddy Zaidi MD [facility] [place]02-07-2025 Telephone encounter Note* Telephone Encounter - Violetta Humphrey RN - 03/16/2024 12:59 PM EST Spoke to Hui- states he has been taking warfarin every day, 2.5 mg. Never misses a day. Call Hui back with response [phone]-did advise her to clean out VM so we can leave messages. Violetta Humphrey RN [facility] [place]02-04-2025 Telephone encounter Note* Telephone Encounter - Cassandra [...] Ann LPN March 13, 2024 8:22 AM [facility] [place]02-04-2025 Miscellaneous Notes* Telephone Encounter - Cassandra Ann [...] 13, 2024 8:22 AM documented in this encounterAdena Health System02-03-2025 Telephone encounter Note * Telephone Encounter - Karo Wilkinson RN - 03/12/2024 2:40 PM EST Called pt, no answer. LVM to call office back [facility]01-29-20[facility] Telephone encounter Note* Telephone Encounter - Violetta Humphrey RN - 03/07/2024 9:48 AM EST Called all numbers listed in chart- no answer. No VM available to leave message. Not on MYChart. Will need to try again later. Violetta Humphrey RN [facility]01-28-2025 Telephone encounter Note* Telephone Encounter - Paddy Zaidi MD - 03/06/2024 2:03 PM EST INR is a little low , have you been taking warfarin 2.5 mg daily every day? May need to increase dose a bit. Please review with patient and advise. Paddy Zaidi MD [facility]01-28-2025 Telephone encounter Note* Telephone Encounter - Cassy [...] inquire about medication assistance. Cassy Jones LPN [facility]01-28-2025 Miscellaneous Notes* Telephone Encounter - Cassy Jones [...] 9:27 AM EST Analilia [facility] if [facility] is an alternative to the Breztri inhaler? Patient has a $100.00 copay and is unable to afford it. documented in this encounterAdena Health System01-28-2025 Telephone encounter Note * Telephone Encounter - Judy Wong MA - 03/06/2024 9:27 AM EST Analilia - Pharmacist from [facility] calling and asking if there is an alternative to the Breztri inhaler? Patient has a $100.00 copay and is unable to afford it. [facility]01-27-2025 History of Present illness Narrative* Burton Huynh MD - 03/05/2024 3:15 PM EST Images from the original note were not included. . Respiratory [place] Note Patient name: Tylor Pedersen PCP: Paddy Zaidi MD Referring Physician: Hever Martníez CNP Consultation requested by Hever Martínez for an opinion regarding COPD. My final recommendations willbe communicated back to the requesting physician by way of shared Medical record or letter to requesting physician via US mail. CC: COPD HPI: Tylor Pedersen 83 year old male former 95-ukhi-ekxv smoker quitting in 1992 with PMH significant for obesity, coronary artery disease s/p CABG and stent, previous stroke, GERD, HLD, prostate cancer s/p radiation, HTN, PAF on AC, central sleep apnea not wearing PAP, chronic hypoxemic respiratory failure being sent for evaluation of COPD. Recently hospitalized at [facility] forpneumonia. CT of the chest shows [...] recurrent bronchitis. DME: [employer] DATA: PFT: PFT [facility] 10/23/2018; FVC 2.41 L 57% FEV1 1.62 L 54% FEV1/FVC 67% No improvement post-bronchodilator TLC 5.01 L 76% RV 2.60 L 94% RV/TLC 52% DLCO 15.2 73% Imaging / Diagnostic Studies: [facility] MR#: [id number] Acct: [id number] Name: TYLOR PEDERSEN Rep #: [id number] : 1940 M 83 From: Shayne Holt [...] the tongue every 5 minutes as needed. hsdivjdtaf-axysdoeb-setdcsqxzs (BREZTRI AEROSPHERE) 160-9-4.8 mcg/actuation HFA aerosol inhaler [...] use: No Drug use: No Worked at [employer] for 32 years Pets: None FAMILY HISTORY Problem Relation Age of Onset Heart Father Prostate Cancer Father Alzheimer's Disease Mother PAST SURGICAL HISTORY Procedure Laterality Date ARTHRP ACETBLR/PROX FEM PROSTC AGRFT/ALGRFT CABG (2) VEIN GRAFTS & ARTERIAL GRAFT(S PAST SURGICAL HISTORY OF 07/24/2018 removal of hardware, left thr radiation for prostate cancer TREAT HIP FRACTURE(S) Left 11/2017 hip screw placed [facility] PMH, Social history, family history and [...] -Ambulation oximetry testing Burton Huynh MD Res[facility] [place] documented in this encounterAdena Health System01-27-2025 NoteHNO ID: [id number] Author: BURTON HUYNH MD Service: ? Author Type: Physician Type: Progress Notes Filed: 03/05/2024 16:00 Note Text: . Respiratory [place] Note Patient name: Tylor Pedersen PCP: Paddy Zaidi MD Referring Physician: Hever Martínez CNP Consultation requested by Hever Martínez for an opinion regarding COPD. My final recommendations will be communicated back to the requesting physician by way of shared Medical record or letter to requesting physician via US mail. CC: COPD HPI: Tylor Pedersen 83 year old male former 82-jdwm-etuo smoker quitting in 1992 with PMH significant for obesity, coronary artery disease s/p CABG and stent, previous stroke, GERD, HLD, prostate cancer s/p radiation, HTN, PAF on AC, central sleep apnea not wearing PAP, chronic hypoxemic respiratory failure being sent for evaluation of COPD. Recently hospitalized at [facility] for pneumonia. CT of the chest [...] recurrent bronchitis. DME: [employer] DATA: PFT: PFT [facility] 10/23/2018; FVC 2.41 L 57% FEV1 1.62 L 54% FEV1/FVC 67% No improvement post-bronchodilator TLC 5.01 L 76% RV 2.60 L 94% RV/TLC 52% DLCO 15.2 73% Imaging / Diagnostic Studies: [facility] MR#: [id number] Acct: [id number] Name: TYLOR PEDERSEN Rep #: [id number] : 1940 83 From: Shayne Holt MD [...] the tongue every 5 minutes as needed. brkjyzsjqu-gsbgpjbk-qnzzlesfpj (BREZTRI AEROSPHERE) 160-9-4.8 mcg/actuation HFA aerosol inhaler [...] by mouth every morning. (more content not included)...[facility]01-27-2025 NoteHNO ID: [id number] Author: MAYRA SIMS RPFT Service: ? Author Type: Respiratory Therapist Type: Progress Notes Filed: 03/05/2024 15:09 Note Text: PULM FUNCTION: Provider: Burton Huynh MD Assisting Tech: Mayra Sims RPFT Spirometry w/BD: 1 DLCO: [facility]-27-[facility]25 History of Present illness Narrative * Mayra Sims RPFT - 03/05/2024 3:04 PM EST PULM FUNCTION: Provider: Burton Huynh MD Assisting Tech: Mayra Sims RPFT Spirometry w/BD: 1 DLCO: 1 documented in this encounterAdena Health System01-09-2025 Telephone encounter Note * Telephone Encounter - Cassandra Ann LPN - 02/16/2024 10:21 AM EST Patients son aware that medication was sent to [facility] in [place]. Son stated he understood that blood work needed drawn in 1 week in [place]. [facility]01-09-2025 Miscellaneous Notes* Telephone Encounter - Cassandra Ann LPN - 02/16/2024 10:21 AM EST Patients son aware that medication was sent to [facility] in [place]. Son stated he understood that blood work needed drawn in 1 week in [place]. * Telephone Encounter - Paddy Zaidi MD [...] for 1x per week, standing order for [place] lab. Once he's on a steady dose [...] of symptoms: N/A Hui Call patient at: [phone] (home) [phone] (cell) Was an appointment scheduled: No Closing statement: Corrina Riggins documented in this encounterAdena Health System01-09-2025 Telephone encounter Note * Telephone Encounter - [...] 1x per sergio . Paddy Zaidi MD [facility]01-08-2025 Telephone encounter Note* Telephone Encounter - Corrina Blood - 02/15/2024 3:30 PM EST Hui, Caregiver, is calling Paddy Zaidi MD today with concern regarding Medication Problem. Patient Jose is $300 with the copay and he cannot afford this. They are asking for Warfarin or another medication. Patient has been identified by name and birthdate. Duration of symptoms: N/A Hui Call patient at: [phone] (home) [phone] (cell) Was an appointment scheduled: No Closing statement: Corrina Riggins [facility] Work Phone: [phone] Telephone encounter Note* Telephone Encounter - Paddy Zaidi MD - 02/14/2024 5:18 PM EST The following approved medication requests have been transmitted electronically. Requested Prescriptions Signed Prescriptions Disp Refills ELIQUIS 5 mg tab(s) 180 tablet 3 Sig: Take 1 tablet by mouth two times a day. Authorizing Provider: PADDY ZAIDI MD [facility]01-07-2025 Miscellaneous Notes* Telephone Encounter - Paddy Zaidi [...] Thank you. Varsha Byers. documented in this encounterAdena Health System01-07-2025 Telephone encounter Note * Telephone Encounter - [...] found Please advise. Thank you. Varsha Byers. [facility]01-07-2025 Telephone encounter Note* Telephone Encounter - Shena Muñoz - 02/14/2024 3:59 PM EST 1st attempt to reach for scheduling, left voicemail. Adrian was seen at [facility] today, and Hever referred him to [...] available the same day soon. Shena Muñoz [facility]01-07-2025 Miscellaneous Notes* Telephone Encounter - Shena Muñoz - 02/14/2024 3:59 PM EST 1st attempt to reach for scheduling, left voicemail. Adrian was seen at [facility] today, and Hever referred him to [...] day soon. Shena Muñoz documented in this encounterAdena Health System01-07-2025 NoteHNO ID: [id number] Author: HEVER MARTÍNEZ APRN.DRAMATIC CRITIC Service: ? Author Type: Nurse Practitioner Type: Progress Notes Filed: 02/14/2024 16:39 Note Text: This note was created using Gamida Cellriter. Subjective Tylor Pedersen is a 83 year old male. 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 Treated for RLL pneumonia at the [...] of AFIB and CAD, never seen a third officer. Uses walker for ambulation, sleeps in the [...] HIP FRACTURE(S) Left 11/2017 hip screw placed [facility] ALLERGIES Aspirin, Oxycodone, and Percodan [Oxycodone-Aspirin] [...] type (HCC) Recommend to establish care with machine shop instructor, continue oxygen. - CONSULT TO PULMONARY MEDICINE 3. Adjustment disorder with mixed anxiety and depressed mood Increase to 40 mg daily. - PARoxetine (PAXIL) 40 mg tablet; Take 1 tablet by mouth once daily. Dispense: 90 tablet; Refill: 1 4. Paroxysmal atrial fibrillation (HCC) Recommend to repeat labs in 1-2 we (more content not included)...[facility]01-07-2025 History of Present illness Narrative* Hever Martínez, NORA.DRAMATIC CRITIC - 02/14/2024 2:16 PM EST This note was created using MICMALI. Subjective Tylor Pedersen is a 83 year old male. 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 Treated for RLL pneumonia at the [...] of AFIB and CAD, never seen a third officer. Uses walker for ambulation, sleeps in the [...] type (HCC) Recommend to establish care with machine shop instructor, continue oxygen. - CONSULT TO PULMONARY MEDICINE 3. Adjustment disorder with mixed anxiety and depressed mood Increase to 40 mg daily. - PARoxetine (PAXIL) 40 mg tablet; Take 1 tablet by mouth once daily. Dispense: 90 tablet; Refill: 1 4. Paroxysmal atrial fibrillation ([facility]) Recommend to repeat labs in 1-2 weeks after re-starting Eliquis and Lasix. - CONSULT TO CARDIOLOGY; Future - COMPLETE BLOOD COUNT; Future - BASIC METABOLIC PANEL; Future 5. Encounter for immunization - INFLUENZA VACCINE, PRSV FREE, AGE 65+ YR, HIGH DOSE, TRIVALENT (FLUZONE HIGH-DOSE) Hever Martínez APRN.DRAMATIC CRITIC documented in this encounterAdena Health System01-06-2025 Telephone encounter Note * Telephone Encounter - Ge Will LPN - 02/13/2024 11:28 AM EST Received visit summary for SOB from [facility] ed. Placed in provider's inbox for review. Route to MA scanning [facility]01-06-2025 Miscellaneous Notes* Telephone Encounter - Ge Will LPN - 02/13/2024 11:28 AM EST Received visit summary for SOB from [facility] ed. Placed in provider's inbox for review. Route to [place] scanning documented in this encounterAdena Health System11-25-2024 Telephone encounter Note * Telephone Encounter - Paddy Zaidi MD - 01/02/2024 11:15 AM EST The following approved medication requests have been transmitted electronically. Requested Prescriptions Signed Prescriptions Disp Refills PARoxetine (PAXIL) 20 mg tablet 30 tablet 5 Sig: Take 1 tablet by mouth once daily. Authorizing Provider: PADDY ZAIDI MD [facility]11-25-2024 Miscellaneous Notes* Telephone Encounter - Paddy Zaidi [...] 30, 2023 10:38 AM documented in this encounterAdena Health System11-22-2024 Telephone encounter Note * Telephone Encounter - [...] Chayito Thorne December 30, 2023 10:38 AM [facility]11-13-2024 Telephone encounter Note* Telephone Encounter - Ge Will LPN - 12/21/2023 3:28 PM EST Received annual oxygen rx from [employer]. Placed in provider's inbox for review. Route to [place] fax [facility]11-13-2024 Miscellaneous Notes* Telephone Encounter - Ge Will LPN - 12/21/2023 3:28 PM EST Received annual oxygen rx from [employer]. Placed in provider's inbox for review. Route to [place] fax documented in this encounterAdena Health System10-24-2024 Telephone encounter Note * Telephone Encounter - Paddy Zaidi MD - 12/01/2023 2:45 PM EDT The following approved medication requests have been transmitted electronically. Requested Prescriptions Signed Prescriptions Disp Refills PARoxetine (PAXIL) 20 mg tablet 30 tablet 5 Sig: Take 1 tablet by mouth once daily. Authorizing Provider: PADDY ZAIDI MD [facility]10-24-2024 Miscellaneous Notes* Telephone Encounter - Paddy Zaidi [...] Thank you. Varsha Byers. documented in this encounterAdena Health System10-24-2024 Telephone encounter Note * Telephone Encounter - [...] found Please advise. Thank you. Varsha Byers. [facility]10-22-2024 Telephone encounter Note* Telephone Encounter - Cassandra [...] Ann LPN November 29, 2023 2:13 PM [facility]10-22-2024 Miscellaneous Notes* Telephone Encounter - Cassandra Ann [...] 29, 2023 2:13 PM documented in this encounterAdena Health System07-26-2024 History of Present illness Narrative* Sarah Robison [...] Patient High CostTotal Patient High Cost {HIGH COST:707433) Quality measure review Payor request for assistance Action Taken: No action needed Sarah Robison RN September 02, 2023 11:40 AM documented in this encounterAdena Health System07-18-2024 History of Present illness Narrative* Corrina Collazo - 08/25/2023 3:[address] [facility] POPULATION HEALTH NAVIGATION OUTREACH Action/FYI Patient needs scheduled for [facility] [place]23 missed Patient Identified by Name and : Yes, via phone Reason for Outreach Care Gap or Scheduling Wellness Visits Care Gap Reviewed:: Annual Wellness visit [facility] Outreach Outcome/Action Unable to reach patient: Left message Population Health Navigation Workflow Chart Review Payer: [employer] Navigation Signature: Corrina Collazo August 25, 2023 3:58 PM documented in this encounterAdena Health System06-26-2024 History of Present illness Narrative* Elenita Dey [...] 03, 2023 1:42 PM documented in this encounterAdena Health System06-03-2024 Telephone encounter Note * Telephone Encounter - [...] calling: self Call patient at: on cell [phone] (home) [phone] (cell) Was an appointment scheduled: No Closing statement: Results or non-symptom based questions: Thank you for calling [facility], your call will be returned within the next business day. Isabell Riggins [facility]06-03-2024 Miscellaneous Notes* Telephone Encounter - Isabell Kearns [...] calling: self Call patient at: on cell [phone] (home) [phone] (cell) Was an appointment scheduled: No Closing statement: Results or non-symptom based questions: Thank you for calling [facility], your call will be returned within the next business day. Isabell Riggins documented in this encounterAdena Health System06-03-2024 Telephone encounter Note * Telephone Encounter - [...] found Please advise. Thank you. Isabell Riggins. [facility]06-03-2024 Miscellaneous Notes* Telephone Encounter - Isabell Kearns [...] Thank you. Isabell Riggins. documented in this encounterAdena Health System05-06-2024 Telephone encounter Note * Telephone Encounter - Ge Will LPN - 06/13/2023 10:34 AM EDT Called and notified pt. Pt indicated understanding. [facility]05-06-2024 Miscellaneous Notes* Telephone Encounter - Ge Will [...] normal. Paddy Zaidi MD documented in this encounterAdena Health System05-06-2024 Telephone encounter Note * Telephone Encounter - [...] Blood count is normal. Paddy Zaidi MD [facility]04-30-2024 History of Present illness Narrative* Paddy Zaidi [...] 15, 2023 9:45 AM documented in this encounterAdena Health System04-26-2024 Telephone encounter Note * Telephone Encounter - [...] limit his ability to leave home. Called [facility] at [phone]. Patient currently has the full size home [...] would just need an order faxed over. [facility]04-26-2024 Miscellaneous Notes* Telephone Encounter - Natalia Massey [...] limit his ability to leave home. Called [facility] at [phone]. Patient currently has the full size home [...] 05/27/2023 2:49 PM EDT Pharmacy verified in [facility] Patient has been identified by [...] Patient aware RX will be sent to [facility] pharmacy. No need to notify patient. Varsha Byers documented in this encounterAdena Health System04-22-2024 Telephone encounter Note * Telephone Encounter - Cassandra Ann LPN - 05/30/2023 4:08 PM EDT LM for patient to have fasting labs drawn. Patient has medicare wellness appt 06/23/2023 [facility]04-19-2024 Telephone encounter Note* Telephone Encounter - Paddy [...] For neuropathy Authorizing Provider: PADDY ZAIDI MD [facility]04-19-2024 Telephone encounter Note* Telephone Encounter - Cassandra [...] 06/02/2022 134/68 Please advise. Cassandra Ann LPN [facility]04-19-2024 Telephone encounter Note* Telephone Encounter - Varsha [...] Patient aware RX will be sent to [facility] pharmacy. No need to notify patient. Varsha Byers T [facility]03-08-2024 History of Present illness Narrative* Corrina Barakat MA - 04/15/2023 11:51 AM EST POPULATION HEALTH NAVIGATION OUTREACH [facility] Discuss/Due for: Medicare Wellness, MyChart [...] labs: Medicare Annual Wellness Visit 06/23/2023 in [facility] with PADDY ZAIDI - MEDICARE WELLNESS Z00.00, HCC GAP CLOSURE HCC related Navigation Signature: Corrina Barakat MA April 15, 2023 11:52 AM documented in this encounterAdena Health System03-01-2024 Miscellaneous Notes* Telephone Encounter - Paddy Zaidi [...] advise. Gabrielle Rosenthal MA documented in this encounterAdena Health System02-09-2024 Miscellaneous Notes* Telephone Encounter - Ge Will LPN - 03/18/2023 2:25 PM EST Received visit summary, labs, imaging, EKG for SOB from [facility]. Placed in provider's inbox for review. Route to [place] scanning. documented in this encounterAdena Health System02-06-2024 Discharge summary Author [facility] March 15, 2023 3:59pm Note Date/Time March 15, 2023 1 :58pm [facility] Medical Records Department [address] [place] [address] Emergency Department Summary 03/15/23 MR#: [id number] Acct: [id number] Name: TYLOR PEDERSEN Rep #:[id number] : 1940 82 From: Parker Metzger MD [...] symptoms: Yes (COPD exacerbation) Recent Illness/Hospitalization: No [facility] Medical History Atherosclerosis of coronary artery of chilkat heart without angina pectoris Central sleep apnea [...] 80.9 H Lymph % (Auto) 8.8 L [place] % (Auto) 6.8 Eos % (Auto) 2.1 [...] duration 70 ms, QT duration 334 ms. [place] is normal.) Treatment and Re-Evaluation :: Patient [...] HTN (hypertension), Atherosclerosis of coronary artery of chilkat heart without angina pectoris, Stage 2 moderate [...] your Primary Care Provider. Call [facility] ([phone]) or report to the closest Emergency Room. Call 911 if necessary. 03/15/23 1559 <Electronically signed by Parker Metzger MD> Cosigner Signature (if applicable): CC: Dr. Shayne Zaidi MD ~ Signed [facility] Work Phone: 1(323) 732-383611-21-2023 Miscellaneous Notes* Telephone Encounter - Ge Will - 12/28/2022 1:00 PM EST Order signed by PCP and faxed. * Telephone Encounter - Ge Will - 12/28/2022 8:14 AM EST Received annual oxygen prescription order form (renewal date 12/08/21) from [employer]. Placed in provider's inbox for review. Route to [place] fax [phone] documented in this encounterAdena Health System08-17-2023 Miscellaneous Notes* Telephone Encounter - Ge Will - 09/23/2022 8:10 AM EDT Received ED visit summary and xrays for lower extremity injusry from [facility] ED. Placed in provider's inbox for review. Route to [place] scanning. documented in this encounterAdena Health System08-14-2023 Hospital Discharge instructions Additional Instructions Closed fracture of ankle. Maintain splint. Usual walker do not put weight on your right lower extremity. Take pain medications as prescribed. Continue to ice and elevate for swelling. Call office of Dr. Spittle for appointment to be seen on Tuesday or Tuesday.[facility] Work Phone: 1(634) 178-550507-14-2023 Miscellaneous Notes* Addendum Note - Cassandra Ann [...] potassium chloride,spironolactone. Please advise documented in this encounterAdena Health System05-16-2023 Miscellaneous Notes* Telephone Encounter - Cassandra Ann LPN - 06/22/2022 9:08 AM EDT LM for patient to call office. * Telephone Encounter - Hever Santiago APRN.CNP - 06/22/2022 8:49 AM EDT Please call patient and remind him to get his repeat chest xray completed in the next week, order placed. Hever Santiago APRN.CNP documented in this encounterAdena Health System04-26-2023 History of Present illness Narrative* Hever PamelaNORA gómez.DRAMATIC CRITIC - 06/02/2022 1:02 PM EDT This note was created using Gamida Cellriter. Subjective Tylor Pederesn is a 81 year old male. Patient [...] HIP FRACTURE(S) Left 11/2017 hip screw placed [facility] ALLERGIES Aspirin, Oxycodone, and Percodan [Oxycodone-Aspirin] [...] depression/anxiety. Hever Santiago APRN.CNP documented in this encounterAdena Health System04-19-2023 Miscellaneous Notes* Telephone Encounter - Violetta Humphrey RN - 05/26/2022 1:28 PM EDT Notified patient-he agrees to plan. Scheduled f/u. Patient verbalizes understanding and has no other questions or concerns at this time. Violetta Humphrey RN Reason for Disposition Health Information question, no triage required and triager able to answer question Protocols used: Information Only Call - No [id number] * Telephone Encounter - Magdy Gloria RN [...] doing. Hever Santiago APRN.CNP documented in this encounterAdena Health System04-15-2023 History of Present illness Narrative* [place], [...] 22, 2022 11:25 AM documented in this encounterAdena Health System04-14-2023 History of Present illness Narrative* Paddy Zaidi MD - 05/21/2022 3:59 PM EDT CHIEF COMPLAINT Patient presents with: Follow Up HISTORY OF PRESENT ILLNESS Tylor Pedersen is a 81 year old male who presents here today for a follow up. I last saw this patient on . Pt is accompanied by his nephew. CAD / Afib Admitted [facility] Cath/ stent placed, no f/u with cardiology. - Pt notes after walking out to car after eating at [employer], , Pt feels like he will pass out. - Pt nephew notes he experiences similar episodes when getting out of the car after going to [facility] - Pt checks his blood pressure at home and records good numbers - Pt nephew notes Pt has trouble walking; he has coughing spells - Pt uses two pillows to lay in bed. Cardiac Cath Intervention on 12-16-2021 Cardiac Cath Intervention [facility] Imaging Services [address] [place] [id number] Cardiac Cath Intervention MR#: [id number] Acct: [id number] Name: TYLOR PEDERSEN Rep #: [id number] : 1940 81 From: Dallas Muller MD PCP: Dr. Shayne Zaidi MD Status:ADM IN Patient Name: TYLOR PEDERSEN Study Date: 12/16/2021 Performing: Tiago Burden MD Ht: 71 inches 180.34 cm : 1940 Wt: 194.29 lbs 88.13 kg Age: 81 Gender: male BSA: 2.08 PROCEDURE(S) PERFORMED IC12-(62310/C9600)KIRK W/WO PTCA, SINGLE CORONARY ARTERY CLINICAL PROFILE [...] XB3.5 100cm Guide Catheter Grey .014 [employer] [place] Straight 190cm Chadwick Sci EMERGE MR 3.00x08 BALLOON [employer] Synergy MR KIKR 3.50x08 Medtronic NC EUPHORA RX 3.5x08 BALLOON COPD/ JONATHAN? CPAP - Pt notes difficulty tolerating his CPAP machine; he notes the pressure is too high Sees machine shop instructor Dr Riley at [facility] A-Fib - Pt is on Eliquis [...] 2.970 Assessment/Plan (I25.119) 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) (primary encounter [...] underthe direction and in the presence of hSayne Zaidi M.D. Electronically Signed: Yousif Weaver. May [...] 21, 2022 6:20 PM documented in this encounterAdena Health System04-07-2023 Miscellaneous Notes* Addendum Note - Hever Franklin Ma - 05/14/2022 3:37 PM EDTAddended by: HEVER FRANKLIN MA on: 05/14/2022 03:37 PM Modules accepted: Orders * Telephone Encounter - Hever Franklin Ma - 05/14/2022 3:36 PM EDT Last appointment: 12/23/21 Next appointment: 05/23/22 Pharmacy verified in [facility]. Refill(s) requested: Requested Prescriptions Pending [...] Order(s) pended. Please advise. Hever Franklin Ma, LITIGATION PARALEGAL * Telephone Encounter - Shena Muñoz - 05/14/2022 3:24 PM EDT Adrian came by and needs refills of all of his medications sent to [facility] pharmacy in [place]. Can someone assist him with his RX refills? He is totally out of gabapentin but also requesting atorvastatin, spironolactone, escitalopram oxalate, atenolol, levothyroxine, potassium chloride. I have scheduled Adrian for a routine check up since he has not been seen since last fall. 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 Could someone advise Adrian when and if RX refills havebeen sent? Thank you, Shena Muñoz documented in this encounterAdena Health System11-21-2022 Miscellaneous Notes* Telephone Encounter - Ge Will - 12/28/2021 2:02 PM EST Received visit summary for sleep apnea and COPD from [facility]. Placed in provider's inbox for review. Route to MA scanning. documented in this encounterAdena Health System11-18-2022 Miscellaneous Notes* Telephone Encounter - Cassandra Ann LPN - 12/25/2021 11:42 AM EST Received 12/25/2021 from [facility]. Placed in provider's inbox for review. 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 Placed in provider's inbox for review. Route to MA scanning. documented in this encounterAdena Health System11-14-2022 Miscellaneous Notes* Telephone Encounter - Cassandra Ann LPN - 12/21/2021 11:00 AM EST Received 12/18/2021 from [facility]. Placed in provider's inbox for review. Route to MA for scanning. documented in this encounterAdena Health System11-14-2022 Miscellaneous Notes* Telephone Encounter - Cassandra Ann LPN - 12/21/2021 10:57 AM EST Received 12/21/2021 from [facility]. Placed in provider's inbox for review. Route to MA for scanning documented in this encounterAdena Health System11-10-2022 Miscellaneous Notes* Telephone Encounter - Ge Will - 12/17/2021 3:17 PM EST Received liver us for elevated lft's from [facility]. Placed in provider's inbox for review. Route to MA scanning. documented in this encounterAdena Health System11-09-2022 Miscellaneous Notes* Telephone Encounter - Ge Will - 12/16/2021 3:08 PM EST Received cardiac cath intervention/diagnostic procedure note and EKG's 12/14, 12/15, 12/16 from [facility]. Placed in provider's inbox for review. Route to MA scanning. documented in this encounterAdena Health System11-08-2022 Miscellaneous Notes* Telephone Encounter - Ge Confer - 12/15/2021 8:54 AM EST Received ED summary, labs, imaging for SOB and chest pain from [facility]. Placed in provider's inbox for review. Route to MA scanning. documented in this encounterAdena Health System10-10-2022 Miscellaneous Notes* Telephone Encounter - Paddy Zaidi [...] advise. Cassandra Ann LPN documented in this encounterAdena Health System08-09-2022 Miscellaneous Notes* Telephone Encounter - Jessi Sotelo [...] recheck. Hever Santiago APRN.CNP documented in this encounterAdena Health System08-04-2022 Miscellaneous Notes* Telephone Encounter - Ge Will [...] 06/22/21 Next appointment: n/a Pharmacy verified in [facility]. Refill(s) requested: Pending Prescriptions Disp [...] Timothy Maradiaga Ma, CMA documented in this encounterAdena Health System05-16-2022 History of Present illness Narrative* Hever Santiago APRN.DRAMATIC CRITIC - 06/22/2021 1:03 PM EDT This note was created using MICMALI. Subjective Tylor Pedersen is a 80 year [...] 1 Hever Santiago APRN.CNP documented in this encounterAdena Health System05-04-2022 Miscellaneous Notes* Telephone Encounter - Jessi Sotelo - 06/10/2021 5:20 PM EDT Called patient and got appointment scheduled * Telephone Encounter - Hever Santiago APRN.CNP - 06/10/2021 10:27 AM EDT Patient is due for a 6 month chronic care visit, please schedule with either provider. Hever Santiago APRN.CNP * Telephone Encounter - Corrina Riggins - 06/09/2021 3:55 PM EDT Pharmacy verified in [facility] Patient has been identified by [...] advise. Corrina Preciado Pss documented in this encounterAdena Health System04-14-2022 Miscellaneous Notes* Telephone Encounter - Paddy Zaidi [...] 12-17-20 Next appointment: na Pharmacy verified in [facility]. Refill(s) requested: Pending Prescriptions Disp Refills ESCITALOPRAM 20 MG TABLET 30 tablet 0 Sig: Take 1 tablet by mouth once daily KARLA: Yes Order(s) pended. Please advise. Haily Avila MA, [facility] Diagnosis Essential hypertension Unspecified essential hypertension Hypokalemia Hypopotassemia documented in this encounter [facility] note* Diagnosis Essential hypertension- Primary Unspecified essential hypertension Pure hypercholesterolemia Acquired hypothyroidism Unspecified hypothyroidism Adjustment disorder with mixed anxiety and depressed mood Peripheral polyneuropathy Unspecified hereditary and idiopathic peripheral neuropathy documented in this encounter [facility] note* Diagnosis Essential hypertension Unspecified essential hypertension Hypokalemia Hypopotassemia documented in this encounter [facility] note* Diagnosis Peripheral polyneuropathy Unspecified hereditary and idiopathic peripheral neuropathy documented in this encounter [facility] note* Diagnosis Onset Date Resolution Status Non-STEMI (non-ST elevated myocardial infarction) acute Paroxysmal atrial fibrillation with RVR acute Pneumococcal pneumonia acute Acute exacerbation of COPD with asthma [facility] Work Phone: Evaluation note* Diagnosis Onset Date Resolution Status Non-STEMI (non-ST elevated myocardial infarction) acute Paroxysmal atrial fibrillation with RVR acute Pneumococcal pneumonia acute Acute exacerbation of COPD with asthma chronic HTN (hypertension) [facility] Work Phone: evaluation note* Diagnosis COPD with exacerbation (HCC)- Primary Obstructive chronic bronchitis with exacerbation Hypertensive urgency Unspecified essential hypertension 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) Pneumonia of left upper lobe due to infectious organism Essential hypertension Unspecified essential hypertension Obstructive sleep apnea on CPAP Obstructive sleep apnea (adult) (pediatric) Hospital discharge follow-up Other follow-up examination documented in this encounter [facility] SystemEvaluation note* Diagnosis Onset Date Resolution Status Non-STEMI (non-ST elevated myocardial infarction) acute Paroxysmal atrial fibrillation with RVR acute Acute exacerbation of COPD with asthma chronic HTN (hypertension) chronic 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 [facility] Work Phone: Evaluation note* Diagnosis Medication management Encounter for long-term (current) use of other medications Acquired hypothyroidism Unspecified hypothyroidism documented in this encounter [facility]* Diagnosis Mixed hyperlipidemia Peripheral polyneuropathy Unspecified hereditary and idiopathic peripheral neuropathy Essential hypertension Unspecified essential hypertension Hypothyroidism, unspecified type Hypokalemia Hypopotassemia documented in this encounter [facility]* Diagnosis 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)- Primary Essential hypertension Unspecified essential hypertension Hypokalemia Hypopotassemia Peripheral polyneuropathy Unspecified hereditary and idiopathic peripheral neuropathy Acquired hypothyroidism Unspecified hypothyroidism Anxiety Anxiety state, unspecified Paroxysmal atrial fibrillation (HCC) Atrial fibrillation SOB (shortness of breath) Shortness of breath Mixed hyperlipidemia Hypothyroidism, unspecified type Chronic obstructive pulmonary disease, unspecified COPD type (HCC) documented in this encounter [facility] SystemEvaluation note* Diagnosis Pneumonia of right middle lobe due to infectious organism- Primary documented in this encounter [facility]* Diagnosis Pneumonia of right middle lobe due to infectious organism- Primary ED (erectile dysfunction) of organic origin Impotence of organic origin Adjustment disorder with mixed anxiety and depressed mood [facility]* Diagnosis Hypothyroidism, unspecified type Mixed hyperlipidemia documented [facility] this [facility] noteNo assessment information availableWAdams County [facility] Work Phone: Evaluation note* Diagnosis Hypothyroidism, unspecified type Essential hypertension Unspecified essential hypertension Mixed hyperlipidemia Peripheral polyneuropathy Unspecified hereditary and idiopathic peripheral neuropathy [facility]* Diagnosis 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 Hypothyroidism, unspecified type Essential hypertension Unspecified essential hypertension Mixed hyperlipidemia Peripheral polyneuropathy Unspecified hereditary and idiopathic peripheral neuropathy SOB (shortness of breath) Shortness of breath Hypoxemia [facility]* Diagnosis Essential hypertension Unspecified essential hypertension Hypothyroidism, unspecified type documented [facility]* Diagnosis Hypokalemia Hypopotassemia documented [facility]* Diagnosis 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) Paroxysmal atrial fibrillation (HCC) Atrial fibrillation SOB (shortness of breath) Shortness of breath documented in this encounter [facility] note* Diagnosis Pneumonia of right lower lobe due to infectious organism- Primary Chronic obstructive pulmonary disease, unspecified COPD type (HCC) Adjustment disorder with mixed anxiety and depressed mood Paroxysmal atrial fibrillation (HCC) Atrial fibrillation Encounter for immunization Need for other specified prophylactic vaccination against single bacterial disease documented in this encounter [facility]* Diagnosis Chronic atrial fibrillation (HCC)- Primary Atrial fibrillation correction current use of anticoagulant therapy Long-term (current) use of anticoagulants documented [facility]* Diagnosis Chronic obstructive pulmonary disease, unspecified COPD type (HCC) documented [facility] this [facility]* Diagnosis Chronic obstructive pulmonary disease, unspecified COPD type (HCC) documented [facility] this encounter [facility]* Diagnosis Chronic obstructive pulmonary disease, unspecified [...] Chronic respiratory failure [facility]* Diagnosis Chronic obstructive pulmonary disease, unspecified COPD type ([facility])- Primary documented [facility] this encounter [facility]* Diagnosis Stage 3 severe COPD by GOLD classification ([facility])- Primary Hypoxia Hypoxemia Pneumonia of left lower lobe due to infectious organism Lung nodules Other nonspecific abnormal finding of lung field [facility]* Diagnosis Pneumonia of left lower lobe due to infectious organism Lung nodules Other nonspecific abnormal finding of lung field documented in this encounter [facility]* Diagnosis Mixed hyperlipidemia Essential hypertension Unspecified essential hypertension documented in this encounter [facility]* Diagnosis Hypothyroidism, unspecified type Peripheral polyneuropathy Unspecified hereditary and idiopathic peripheral neuropathy documented in this encounter [facility]* Diagnosis Oxygen dependent- Primary Dependence on supplemental oxygen Atherosclerotic cardiovascular disease Anxiety attack Panic 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 Leg swelling Swelling of limb Adjustment disorder with mixed anxiety and depressed mood PAD (peripheral artery disease) Peripheral vascular disease, unspecified Acquired hypothyroidism Unspecified hypothyroidism Pure hypercholesterolemia Idiopathic peripheral neuropathy Unspecified hereditary and idiopathic peripheral neuropathy Atherosclerosis of chilkat coronary artery of chilkat heart without angina pectoris documented in this encounter [facility]* Diagnosis Adjustment disorder with mixed anxiety and depressed mood Hypokalemia Hypopotassemia documented in this encounter [facility]* Diagnosis Hypokalemia Hypopotassemia documented in this encounter [facility]* Diagnosis Hypothyroidism, unspecified type documented [facility] this encounter [facility]* Diagnosis Acute on chronic diastolic congestive heart failure (HCC)- Primary Acute on chronic diastolic heart failure Adjustment disorder with mixed anxiety and depressed mood Atrial fibrillation with RVR (HCC) Atrial fibrillation Aspiration pneumonia, unspecified aspiration pneumonia type, unspecified laterality, unspecified part of lung (HCC) Anxiety attack Panic 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 Hypokalemia 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 Shayne Zaidi MD Status:ADM MARICARMEN Location: [place] [address] HPI - General General Date of Admission: [...] INR trending to now re-presents to the [facility] ED on 09/16/2024 with history of reported [...] medication. In the ED patient administered MIVFs. 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 Reading Location: [id number] Assessment & Plan Assessment/Plan (1) Altered mental [...] INR trending to now re-presents to the [facility] ED on 09/16/2024 with history of reported [...] with an occluded right coronary artery and [id number] collaterals evident, will continue baby aspirin, Coumadin [...] Full Code. Charges/Coding Visit Charges Inpatient E&M: 87979 Init Hosp L3 09/16/24 2141 <Electronically signed by Olivia Walters MD> Cosigner Signature (if applicable): CC: Dr. Olivia Walters MD; Dr. 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 for referral (narrative)* Outpatient Procedure (Routine) - Authorized Specialty Diagnoses / Procedures Referred By Contac t Referred To [facility] Diagnoses Chronic obstructive pulmonary disease, unspecified COPD type (HCC) Procedures OXIMETRY WITH AMBULATION NONINVASIVE EAR/PULSE OXIMETRY MULTIPLE DETER Burton Huynh MD [address] [place] [address] [address] Referral ID Status Reason Start Date Expiration Date Visits Requested Visits Authorized [id number] Authorized Auto-Generat ed Referral 03/05/2024 04/04/2025 1 1 * MRI/CT (Routine) - Authorized Specialty Diagnoses / Procedures [facility] CT IMAGING Diagnoses Pneumonia of left lower lobe due to infectious organism Lung nodules Procedures CT CHEST WO IVCON DIAGNOSTIC COMPUTED TOMOGRAPHY THORAX W/O CNTRST Burton Huynh MD [address] [facility] [place] [address] [facility] Referral ID Status Reason Start Date Expiration Date Visits Requested Visits Authorized [id number] Authorized Auto-Generat ed Referral 03/05/2024 04/04/2025 1 1 * Outpatient Procedure (Routine) - Closed Specialty Diagnoses / Procedures [facility] Diagnoses Chronic obstructive pulmonary disease, unspecified COPD type (HCC) Procedures LUNG DIFFUSION CAPACITY (DLCO) DIFFUSING CAPACITY Burton Huynh MD [address] [place] [address] [address] Referral ID Status Reason Start Date Expiration Date V isits Requested Visits Authorized [id number] Closed Auto-Generate d Referral 03/05/2024 04/04/2025 1 1 * Outpatient Procedure (Routine) - Closed Specialty Diagnoses / Procedures Referred By Contac t Referred To [facility] Diagnoses Chronic obstructive pulmonary disease, unspecified COPD type (HCC) Procedures SPIROMETRY WITH DILATOR IF OBSTRUCTED BRNCDILAT RSPSE SPMTRY PRE&POST-BRNCDILAT ADMBurton Farooq MD [address] [place] [address] [facility] [place] [address] [place] [address] Referral ID Status Reason Start Date Expiration Date V isits Requested Visits Authorized [id number] Closed Auto-Generate d Referral 03/05/2024 04/04/2025 1 1 [facility] [place] Summary Purpose Family History No Family History [...] Will No December 14 5:17pm Power of Window Glass Installer No December 14, 2021 5:17pm Advance Directive Response Recorded Date/ Time Living Will No September 22 7:03pm Power of Window Glass Installer Yes September 22, 023 7:03pm Name of Medical Power of Window Glass Installer GILA September 22, 2022 7:03pm Advance Directive Response Recorded Date/ Time Living Will No March 15 2:08pm Power of Window Glass Installer Yes March 15, 2023 2:08pm Name of Medical Power of Window Glass Installer Gila March 15, 2023 2:08pm Advance Directive Response Recorded Date/ Time Do you have a Healthcare Power of Window Glass Installer? No September 10, 2024 12:54am Advance Directive Response Recorded Date/ Time Do you have a Healthcare Power of Window Glass Installer? No September 10, 2024 12:54am Do you have a Healthcare Power of Window Glass Installer? Yes September 16, 2024 6:27pm Advance Directive Response Recorded Date/ Time Do you have a Healthcare Pow er of Window Glass Installer? No September 10, 2024 12:54am Do you have a Healthcare Pow er of Window Glass Installer? Yes September 16, 2024 10:05pm Name of Medical Power of Window Glass Installer Sarah Pedersen (son) September 16, 2024 10:05pm [...] fibrillation (HCC) Procedures CONSULT TO CARDIOLOGY OFFICE/OUTPATIENT [facility] 60 MINUTES Hever Martínez, CARDIOTHORACIC ICU RN.DRAMATIC CRITIC [address] [facility] [address] [address] [address] Referral ID Status Reason Start Date Expiration Date Visits Requested Visits Authorized [id number] Authorized PCP Requested Referral 02/14/2024 02/13/2025 1 1 Additional Source Comments (unrecognized sect ion and content) No Status Records FoundNo Status Records FoundNo Status Records FoundNo Status Records Found INFORMATION SOURCE (unrecogn ized section and content) DATE CREATED AUTHOR 06/30/2018 [facility] DATE CREATED AUTHOR AUTHOR'S ORGANIZ ATION 09/15/2024 [facility] DATE CREATED AUTHOR AUTHOR'S ORGANIZ ATION 09/25/2024 [facility] DATE CREATED AUTHOR AUTHOR'S ORGANIZ ATION 09/26/2024 [facility] Source Comments (unrecognize d section and content) In the event this informatio n is protected by the Federal Confidentiality of Alcohol and Drug Abuse Patient Records regulations: The Federal rules restrict any use of the information to criminally investigate or prosecute any alcohol or drug abuse patient.[facility] the event this information is protected by the Federal Confidentiality of Alcohol and Drug Abuse Patient Records regulations: The Federal rules restrict any use of the information to criminally investigate or prosecute any alcohol or drug abuse patient.[facility] SystemIn the event this information is protected by the Federal Confidentiality of Alcohol and Drug Abuse Patient Records regulations: The Federal rules restrict any use of the information to criminally investigate or prosecute any alcohol or drug abuse patient.[facility] SystemIn the event this information is protected by the Federal Confidentiality of Alcohol and Drug Abuse Patient Records regulations: The Federal rules restrict any use of the information to criminally investigate or prosecute any alcohol or drug abuse patient.[facility] SystemIn the event this information is protected by the Federal Confidentiality of Alcohol and Drug Abuse Patient Records regulations: The Federal rules restrict any use of the information to criminally investigate or prosecute any alcohol or drug abuse patient.[facility] SystemIn the event this information is protected by the Federal Confidentiality of Alcohol and Drug Abuse Patient Records regulations: The Federal rules restrict any use of the information to criminally investigate or prosecute any alcohol or drug abuse patient.[facility] SystemIn the event this information is protected by the Federal Confidentiality of Alcohol and Drug Abuse Patient Records regulations: The Federal rules restrict any use of the information to criminally investigate or prosecute any alcohol or drug abuse patient.[facility] SystemIn the event this information is protected by the Federal Confidentiality of Alcohol and Drug Abuse Patient Records regulations: The Federal rules restrict any use of the information to criminally investigate or prosecute any alcohol or drug abuse patient.[facility] SystemIn the event this information is protected by the Federal Confidentiality of Alcohol and Drug Abuse Patient Records regulations: The Federal rules restrict any use of the information to criminally investigate or prosecute any alcohol or drug abuse patient.[facility] SystemIn the event this information is protected by the Federal Confidentiality of Alcohol and Drug Abuse Patient Records regulations: The Federal rules restrict any use of the information to criminally investigate or prosecute any alcohol or drug abuse patient.[facility] SystemIn the event this information is protected by the Federal Confidentiality of Alcohol and Drug Abuse Patient Records regulations: The Federal rules restrict any use of the information to criminally investigate or prosecute any alcohol or drug abuse patient.[facility] SystemIn the event this information is protected by the Federal Confidentiality of Alcohol and Drug Abuse Patient Records regulations: The Federal rules restrict any use of the information to criminally investigate or prosecute any alcohol or drug abuse patient.[facility] SystemIn the event this information is protected by the Federal Confidentiality of Alcohol and Drug Abuse Patient Records regulations: The Federal rules restrict any use of the information to criminally investigate or prosecute any alcohol or drug abuse patient.[facility] SystemIn the event this information is protected by the Federal Confidentiality of Alcohol and Drug Abuse Patient Records regulations: The Federal rules restrict any use of the information to criminally investigate or prosecute any alcohol or drug abuse patient.[facility] SystemIn the event this information is protected by the Federal Confidentiality of Alcohol and Drug Abuse Patient Records regulations: The Federal rules restrict any use of the information to criminally investigate or prosecute any alcohol or drug abuse patient.[facility] SystemIn the event this information is protected by the Federal Confidentiality of Alcohol and Drug Abuse Patient Records regulations: The Federal rules restrict any use of the information to criminally investigate or prosecute any alcohol or drug abuse patient.[facility] SystemIn the event this information is protected by the Federal Confidentiality of Alcohol and Drug Abuse Patient Records regulations: The Federal rules restrict any use of the information to criminally investigate or prosecute any alcohol or drug abuse patient.[facility] SystemIn the event this information is protected by the Federal Confidentiality of Alcohol and Drug Abuse Patient Records regulations: The Federal rules restrict any use of the information to criminally investigate or prosecute any alcohol or drug abuse patient.[facility] SystemIn the event this information is protected by the Federal Confidentiality of Alcohol and Drug Abuse Patient Records regulations: The Federal rules restrict any use of the information to criminally investigate or prosecute any alcohol or drug abuse patient.[facility] SystemIn the event this information is protected by the Federal Confidentiality of Alcohol and Drug Abuse Patient Records regulations: The Federal rules restrict any use of the information to criminally investigate or prosecute any alcohol or drug abuse patient.[facility] SystemIn the event this information is protected by the Federal Confidentiality of Alcohol and Drug Abuse Patient Records regulations: The Federal rules restrict any use of the information to criminally investigate or prosecute any alcohol or drug abuse patient.[facility] SystemIn the event this information is protected by the Federal Confidentiality of Alcohol and Drug Abuse Patient Records regulations: The Federal rules restrict any use of the information to criminally investigate or prosecute any alcohol or drug abuse patient.[facility] SystemIn the event this information is protected by the Federal Confidentiality of Alcohol and Drug Abuse Patient Records regulations: The Federal rules restrict any use of the information to criminally investigate or prosecute any alcohol or drug abuse patient.[facility] SystemIn the event this information is protected by the Federal Confidentiality of Alcohol and Drug Abuse Patient Records regulations: The Federal rules restrict any use of the information to criminally investigate or prosecute any alcohol or drug abuse patient.[facility] SystemIn the event this information is protected by the Federal Confidentiality of Alcohol and Drug Abuse Patient Records regulations: The Federal rules restrict any use of the information to criminally investigate or prosecute any alcohol or drug abuse patient.[facility] SystemIn the event this information is protected by the Federal Confidentiality of Alcohol and Drug Abuse Patient Records regulations: The Federal rules restrict any use of the information to criminally investigate or prosecute any alcohol or drug abuse patient.[facility] SystemIn the event this information is protected by the Federal Confidentiality of Alcohol and Drug Abuse Patient Records regulations: The Federal rules restrict any use of the information to criminally investigate or prosecute any alcohol or drug abuse patient.[facility] SystemIn the event this information is protected by the Federal Confidentiality of Alcohol and Drug Abuse Patient Records regulations: The Federal rules restrict any use of the information to criminally investigate or prosecute any alcohol or drug abuse patient.[facility] SystemIn the event this information is protected by the Federal Confidentiality of Alcohol and Drug Abuse Patient Records regulations: The Federal rules restrict any use of the information to criminally investigate or prosecute any alcohol or drug abuse patient.[facility] SystemIn the event this information is protected by the Federal Confidentiality of Alcohol and Drug Abuse Patient Records regulations: The Federal rules restrict any use of the information to criminally investigate or prosecute any alcohol or drug abuse patient.[facility] SystemIn the event this information is protected by the Federal Confidentiality of Alcohol and Drug Abuse Patient Records regulations: The Federal rules restrict any use of the information to criminally investigate or prosecute any alcohol or drug abuse patient.[facility] SystemIn the event this information is protected by the Federal Confidentiality of Alcohol and Drug Abuse Patient Records regulations: The Federal rules restrict any use of the information to criminally investigate or prosecute any alcohol or drug abuse patient.[facility] SystemIn the event this information is protected by the Federal Confidentiality of Alcohol and Drug Abuse Patient Records regulations: The Federal rules restrict any use of the information to criminally investigate or prosecute any alcohol or drug abuse patient.[facility] SystemIn the event this information is protected by the Federal Confidentiality of Alcohol and Drug Abuse Patient Records regulations: The Federal rules restrict any use of the information to criminally investigate or prosecute any alcohol or drug abuse patient.[facility] SystemIn the event this information is protected by the Federal Confidentiality of Alcohol and Drug Abuse Patient Records regulations: The Federal rules restrict any use of the information to criminally investigate or prosecute any alcohol or drug abuse patient.[facility] SystemIn the event this information is protected by the Federal Confidentiality of Alcohol and Drug Abuse Patient Records regulations: The Federal rules restrict any use of the information to criminally investigate or prosecute any alcohol or drug abuse patient.[facility] SystemIn the event this information is protected by the Federal Confidentiality of Alcohol and Drug Abuse Patient Records regulations: The Federal rules restrict any use of the information to criminally investigate or prosecute any alcohol or drug abuse patient.[facility] SystemIn the event this information is protected by the Federal Confidentiality of Alcohol and Drug Abuse Patient Records regulations: The Federal rules restrict any use of the information to criminally investigate or prosecute any alcohol or drug abuse patient.[facility] SystemIn the event this information is protected by the Federal Confidentiality of Alcohol and Drug Abuse Patient Records regulations: The Federal rules restrict any use of the information to criminally investigate or prosecute any alcohol or drug abuse patient.[facility] SystemIn the event this information is protected by the Federal Confidentiality of Alcohol and Drug Abuse Patient Records regulations: The Federal rules restrict any use of the information to criminally investigate or prosecute any alcohol or drug abuse patient.[facility] SystemIn the event this information is protected by the Federal Confidentiality of Alcohol and Drug Abuse Patient Records regulations: The Federal rules restrict any use of the information to criminally investigate or prosecute any alcohol or drug abuse patient.[facility] SystemIn the event this information is protected by the Federal Confidentiality of Alcohol and Drug Abuse Patient Records regulations: The Federal rules restrict any use of the information to criminally investigate or prosecute any alcohol or drug abuse patient.[facility] SystemIn the event this information is protected by the Federal Confidentiality of Alcohol and Drug Abuse Patient Records regulations: The Federal rules restrict any use of the information to criminally investigate or prosecute any alcohol or drug abuse patient.[facility] SystemIn the event this information is protected by the Federal Confidentiality of Alcohol and Drug Abuse Patient Records regulations: The Federal rules restrict any use of the information to criminally investigate or prosecute any alcohol or drug abuse patient.[facility] SystemIn the event this information is protected by the Federal Confidentiality of Alcohol and Drug Abuse Patient Records regulations: The Federal rules restrict any use of the information to criminally investigate or prosecute any alcohol or drug abuse patient.[facility] SystemIn the event this information is protected by the Federal Confidentiality of Alcohol and Drug Abuse Patient Records regulations: The Federal rules restrict any use of the information to criminally investigate or prosecute any alcohol or drug abuse patient.[facility] SystemIn the event this information is protected by the Federal Confidentiality of Alcohol and Drug Abuse Patient Records regulations: The Federal rules restrict any use of the information to criminally investigate or prosecute any alcohol or drug abuse patient.[facility] SystemIn the event this information is protected by the Federal Confidentiality of Alcohol and Drug Abuse Patient Records regulations: The Federal rules restrict any use of the information to criminally investigate or prosecute any alcohol or drug abuse patient.[facility] SystemIn the event this information is protected by the Federal Confidentiality of Alcohol and Drug Abuse Patient Records regulations: The Federal rules restrict any use of the information to criminally investigate or prosecute any alcohol or drug abuse patient.[facility] SystemIn the event this information is protected by the Federal Confidentiality of Alcohol and Drug Abuse Patient Records regulations: The Federal rules restrict any use of the information to criminally investigate or prosecute any alcohol or drug abuse patient.[facility] SystemIn the event this information is protected by the Federal Confidentiality of Alcohol and Drug Abuse Patient Records regulations: The Federal rules restrict any use of the information to criminally investigate or prosecute any alcohol or drug abuse patient.[facility] SystemIn the event this information is protected by the Federal Confidentiality of Alcohol and Drug Abuse Patient Records regulations: The Federal rules restrict any use of the information to criminally investigate or prosecute any alcohol or drug abuse patient.[facility] SystemIn the event this information is protected by the Federal Confidentiality of Alcohol and Drug Abuse Patient Records regulations: The Federal rules restrict any use of the information to criminally investigate or prosecute any alcohol or drug abuse patient.[facility] SystemIn the event this information is protected by the Federal Confidentiality of Alcohol and Drug Abuse Patient Records regulations: The Federal rules restrict any use of the information to criminally investigate or prosecute any alcohol or drug abuse patient.[facility] SystemIn the event this information is protected by the Federal Confidentiality of Alcohol and Drug Abuse Patient Records regulations: The Federal rules restrict any use of the information to criminally investigate or prosecute any alcohol or drug abuse patient.[facility] SystemIn the event this information is protected by the Federal Confidentiality of Alcohol and Drug Abuse Patient Records regulations: The Federal rules restrict any use of the information to criminally investigate or prosecute any alcohol or drug abuse patient.[facility] SystemIn the event this information is protected by the Federal Confidentiality of Alcohol and Drug Abuse Patient Records regulations: The Federal rules restrict any use of the information to criminally investigate or prosecute any alcohol or drug abuse patient.[facility] SystemIn the event this information is protected by the Federal Confidentiality of Alcohol and Drug Abuse Patient Records regulations: The Federal rules restrict any use of the information to criminally investigate or prosecute any alcohol or drug abuse patient.[facility] SystemIn the event this information is protected by the Federal Confidentiality of Alcohol and Drug Abuse Patient Records regulations: The Federal rules restrict any use of the information to criminally investigate or prosecute any alcohol or drug abuse patient.[facility] SystemIn the event this information is protected by the Federal Confidentiality of Alcohol and Drug Abuse Patient Records regulations: The Federal rules restrict any use of the information to criminally investigate or prosecute any alcohol or drug abuse patient.[facility] SystemIn the event this information is protected by the Federal Confidentiality of Alcohol and Drug Abuse Patient Records regulations: The Federal rules restrict any use of the information to criminally investigate or prosecute any alcohol or drug abuse patient.[facility] SystemIn the event this information is protected by the Federal Confidentiality of Alcohol and Drug Abuse Patient Records regulations: The Federal rules restrict any use of the information to criminally investigate or prosecute any alcohol or drug abuse patient.[facility] SystemIn the event this information is protected by the Federal Confidentiality of Alcohol and Drug Abuse Patient Records regulations: The Federal rules restrict any use of the information to criminally investigate or prosecute any alcohol or drug abuse patient.[facility] SystemIn the event this information is protected by the Federal Confidentiality of Alcohol and Drug Abuse Patient Records regulations: The Federal rules restrict any use of the information to criminally investigate or prosecute any alcohol or drug abuse patient.[facility] SystemIn the event this information is protected by the Federal Confidentiality of Alcohol and Drug Abuse Patient Records regulations: The Federal rules restrict any use of the information to criminally investigate or prosecute any alcohol or drug abuse patient.[facility] SystemIn the event this information is protected by the Federal Confidentiality of Alcohol and Drug Abuse Patient Records regulations: The Federal rules restrict any use of the information to criminally investigate or prosecute any alcohol or drug abuse patient.[facility] SystemIn the event this information is protected by the Federal Confidentiality of Alcohol and Drug Abuse Patient Records regulations: The Federal rules restrict any use of the information to criminally investigate or prosecute any alcohol or drug abuse patient.[facility] SystemIn the event this information is protected by the Federal Confidentiality of Alcohol and Drug Abuse Patient Records regulations: The Federal rules restrict any use of the information to criminally investigate or prosecute any alcohol or drug abuse patient.[facility] SystemIn the event this information is protected by the Federal Confidentiality of Alcohol and Drug Abuse Patient Records regulations: The Federal rules restrict any use of the information to criminally investigate or prosecute any alcohol or drug abuse patient.[facility] SystemIn the event this information is protected by the Federal Confidentiality of Alcohol and Drug Abuse Patient Records regulations: The Federal rules restrict any use of the information to criminally investigate or prosecute any alcohol or drug abuse patient.[facility] SystemIn the event this information is protected by the Federal Confidentiality of Alcohol and Drug Abuse Patient Records regulations: The Federal rules restrict any use of the information to criminally investigate or prosecute any alcohol or drug abuse patient.[facility] SystemIn the event this information is protected by the Federal Confidentiality of Alcohol and Drug Abuse Patient Records regulations: The Federal rules restrict any use of the information to criminally investigate or prosecute any alcohol or drug abuse patient.[facility] SystemIn the event this information is protected by the Federal Confidentiality of Alcohol and Drug Abuse Patient Records regulations: The Federal rules restrict any use of the information to criminally investigate or prosecute any alcohol or drug abuse patient.[facility] SystemIn the event this information is protected by the Federal Confidentiality of Alcohol and Drug Abuse Patient Records regulations: The Federal rules restrict any use of the information to criminally investigate or prosecute any alcohol or drug abuse patient.[facility] SystemIn the event this information is protected by the Federal Confidentiality of Alcohol and Drug Abuse Patient Records regulations: The Federal rules restrict any use of the information to criminally investigate or prosecute any alcohol or drug abuse patient.[facility] SystemIn the event this information is protected by the Federal Confidentiality of Alcohol and Drug Abuse Patient Records regulations: The Federal rules restrict any use of the information to criminally investigate or prosecute any alcohol or drug abuse patient.[facility] SystemIn the event this information is protected by the Federal Confidentiality of Alcohol and Drug Abuse Patient Records regulations: The Federal rules restrict any use of the information to criminally investigate or prosecute any alcohol or drug abuse patient.[facility] SystemIn the event this information is protected by the Federal Confidentiality of Alcohol and Drug Abuse Patient Records regulations: The Federal rules restrict any use of the information to criminally investigate or prosecute any alcohol or drug abuse patient.[facility] SystemIn the event this information is protected by the Federal Confidentiality of Alcohol and Drug Abuse Patient Records regulations: The Federal rules restrict any use of the information to criminally investigate or prosecute any alcohol or drug abuse patient.[facility] Reason for Visit (unrecogniz ed section and content) Reason Comments Refill Request Reason Onset Date Comments Refill Request 06/09/2021 Reason Comments Follow Up Reason Comments Results Reason Comments Received Outside Medical Records [facility] ED Reason Comments Received Outside Medical Records [facility] Car diac Cath Reason Comments Received Outside Medical Records Liver U S [facility] Reason Comments Received Outside Medical Records [facility] chest xray 12/18/2021 Reason Comments Received Outside Medical Records [facility] discharge instructions. 12/18/2021 Reason Comments Erroneous encounter-disregard Reason Comments Received Outside Medical Records EKG [facility] Reason Comments Hospital F/U Reason Comments Received Outside Medical Records [facility] 12 lead EKG 12/16/2021 and 12/17/2021 Reason Comments Received Outside Medical Records Pulmona ry Medicine [facility] Reason Comments Medication Problem Reason Onset Date Comments Population Health Navigation Outreach 04/27/2022 HCC Reason Comments Follow Up Reason Comments Follow Up pneumonia Reason Comments Orders Reason Comments Patient Question Reason Comments Received Outside Medical Records [facility] 09/07 07/30 Reason Comments Orders [employer] annual oxygen prescription renewal Reason Comments Received Outside Medical Records [facility] ED 03/15/23 Reason Onset Date Comments [facility] Navigation Outreach 04/15/2023 [employer] HCCs 2.16.24 Reason [...] Burton Huynh MD [address] [place] [address] [facility] [address] [place] [address] Referral ID Status Reason Start Date Expiration Date V isits Requested Visits Authorized [id number] Closed Auto-Generate d Referral 03/05/2024 04/04/2025 1 1 Specialty Diagnoses / Procedures Referred By Contac t Referred To Contact [facility] Diagnoses Chronic obstructive pulmonary disease, unspecified COPD type (HCC) Procedures LUNG DIFFUSION CAPACITY (DLCO) DIFFUSING CAPACITY Burton Huynh MD [address] [facility] [place] [address] Respiratory [facility] [address] [place] [address] Referral ID Status Reason Start Date Expiration Date V isits Requested Visits Authorized [id number] Closed Auto-Generate d Referral 03/05/2024 04/04/2025 1 [...] Burton Huynh MD [address] [place] [address] Phone: tel: fax: [facility] [address] [place] [address] Referral ID Status Reason Start Date Expiration Date V isits Requested Visits Authorized [id number] Closed Auto-Generate d Referral 03/05/2024 04/04/2025 1 1 Reason Comments Established Patient COPD follow up Reason Comments Radiology CT Specialty Diagnoses / Procedures Referred By Contthania t Referred To Contact CT IMAGING Diagnoses Pneumonia of left lower lobe due to infectious organism Lung nodules Procedures CT CHEST WO IVCON DIAGNOSTIC COMPUTED TOMOGRAPHY THORAX W/O CNTRST Burton Huynh MD [address] [place] [address] Phone: tel: fax: [place] [phone] Referral ID Status Reason Start Date Expiration Date V isits Requested Visits Authorized [id number] Closed Auto-Generate d Referral 03/05/2024 04/04/2025 1 [...] [employer] Reason Comments Received Outside Medical Records [facility] ED summary Reason Comments Received Outside Medical Records [facility] Naomi ro consult Reason Comments Received Outside Medical Records [facility] Discharge summary 09/19/2024 Encephalopathy Reason Comments Hospital F/U Care Teams (unrecognized sec tion and content) Nylon Mender Relationship Specialty Start Date End Date Paddy Ziadi MD [address] [place], [place] [id number] PCP - General Family Practice 05/27/15 Nylon Mender Relationship Specialty Start Date End Date Paddy Zaidi MD [address] [place], [place] [id number] PCP - General Family Practice 05/27/15 Nylon Mender Relationship Specialty Start Date End Date Paddy Zaidi MD [address] [facility] [place] [address] PCP - General Family Practice 05/27/15 Nylon Mender Relationship Specialty Start Date End Date Paddy Zaidi MD [facility] [place] [address] PCP - General Family Practice 05/27/15 Nylon Mender Relationship Specialty Start Date End Date Paddy Zaidi MD [address] [place] [address], [place] [address] PCP - General Family Practice 05/27/15 Nylon Mender Relationship Specialty Start Date End Date Paddy Zaidi MD [address] [place] [address], [place] [address] PCP - General Family Medicine 05/27/15 Nylon Mender Relationship Specialty Start Date End Date Paddy Zaidi MD [address] [place] [address], [place] [address] PCP - General Family Medicine 05/27/15 Nylon Mender Relationship Specialty Start Date End Date Paddy Zaidi MD [address] [place] [address], [place] [address] PCP - General Family Medicine 05/27/15 Nylon Mender Relationship Specialty Start Date End Date Paddy Zaidi MD [address] [place] [address], [place] [address] PCP - General Family Medicine 05/27/15 Nylon Mender Relationship Specialty Start Date End Date Paddy Zaidi MD [address] [place] [address], [place] [address] PCP - General Family Medicine 05/27/15 Nylon Mender Relationship Specialty Start Date End Date Paddy Zaidi MD [address] [place] [address], [place] [address] PCP - General Family Medicine 05/27/15 Nylon Mender Relationship Specialty Start Date End Date Paddy Zaidi MD [facility] [place] [address] PCP - General Family Medicine 05/27/15 Nylon Mender Relationship Specialty Start Date End Date Paddy Zaidi MD [address] [place] [address], [place] [address] PCP - General Family Medicine 05/27/15 Nylon Mender Relationship Specialty Start Date End Date Paddy Zaidi MD [address] [place] [address], [place] [address] PCP - General Family Medicine 05/27/15 Nylon Mender Relationship Specialty Start Date End Date Paddy Zaidi MD [address] [place] [address], [place] [address] PCP - General Family Medicine 05/27/15 Nylon Mender Relationship Specialty Start Date End Date Paddy Zaidi MD [address] [place] [address], [place] [address] PCP - General Family Medicine 05/27/15 Nylon Mender Relationship Specialty Start Date End Date Paddy Zaidi MD [address] [place] [address], [place] [address] PCP - General Family Medicine 05/27/15 Nylon Mender Relationship Specialty Start Date End Date Paddy Zaidi MD [address] [place] [address], [place] [address] PCP - General Family Medicine 05/27/15 Nylon Mender Relationship Specialty Start Date End Date Pdady Zaidi MD [address] [place] [address], [place] [address] PCP - General Family Medicine 05/27/15 Nylon Mender Relationship Specialty Start Date End Date Paddy Zaidi MD [address] [facility] [place] [address] PCP - General Family Medicine 05/27/15 Team Status: Active Member Role Status Dates Dr. Shayne Zaidi MD Family Provider Active Dr. Shayne Zaidi MD Primary Care Provider Active Team Status: Inactive Member Role Status Dates Dr. Shayne Zaidi MD Primary Care Provider Active Dr. Adrian Eddy DO Emergency Provider Active Nylon Mender Relationship Specialty Start Date End Date Paddy Zaidi MD [address] [facility] [place] [address] PCP - General Family Medicine 05/27/15 Nylon Mender Relationship Specialty Start Date End Date Paddy Zaidi MD [address] [facility] [place] [address] PCP - General Family Medicine 05/27/15 Team Status: Inactive Member Role Status Dates Dr. Shayne Zaidi MD Primary Care Provider Active Dr. Parker Metzger MD Emergency Provider Active Nylon Mender Relationship Specialty Start Date End Date Paddy Zaidi MD [address] [facility] [place] [address] PCP - General Family Medicine 05/27/15 Nylon Mender Relationship Specialty Start Date End Date Paddy Zaidi MD [address] [facility] [place] [address] PCP - General Family Medicine 05/27/15 Nylon Mender Relationship Specialty Start Date End Date Paddy Zaidi MD [address] [facility] [place] [address] PCP - General Family Medicine 05/27/15 Nylon Mender Relationship Specialty Start Date End Date Paddy Zaidi MD [address] [facility] [place] [address] PCP - General Family Medicine 05/27/15 Nylon Mender Relationship Specialty Start Date End Date Paddy Zaidi MD [address] [facility] [place] [address] PCP - General Family Medicine 05/27/15 Nylon Mender Relationship Specialty Start Date End Date Paddy Zaidi MD [address] [facility] [place] [address] PCP - General Family Medicine 05/27/15 Nylon Mender Relationship Specialty Start Date End Date Paddy Zaidi MD [address] [facility] [place] [address] PCP - General Family Medicine 05/27/15 Nylon Mender Relationship Specialty Start Date End Date Paddy Zaidi MD [address] [place] [address] PCP - General Family Medicine 05/27/15 Hever Martínez APRN.DRAMATIC CRITIC [address] [facility] [address] [place], [place] [address] [employer] Wa[employer] Internal Medicine 01/15/24 Nylon Mender Relationship Specialty Start Date End Date Paddy Zaidi MD [address] [facility] [place] [address] PCP - General Family Medicine 05/27/15 Hever Martínez APRN.DRAMATIC CRITIC [address] [facility] [address] [place], [place] [address] [employer] Wa[employer] Internal Medicine 01/15/24 Nylon Mender Relationship Specialty Start Date End Date Paddy Zaidi MD [address] [place] [address] PCP - General Family Medicine 05/27/15 Hever Martínez APRN.DRAMATIC CRITIC [address] [facility] [place] [place] [address] [employer] Wa[employer] Internal Medicine 01/15/24 Nylon Mender Relationship Specialty Start Date End Date Paddy Zaidi MD [address] [place] [address] PCP - General Family Medicine 05/27/15 Hever Martínez, CARDIOTHORACIC ICU RN.DRAMATIC CRITIC [address] [facility] [place] [place] [address] [employer] Wafer [employer] Internal Medicine 01/15/24 Nylon Mender Relationship Specialty Start Date End Date Paddy Zaidi MD [address] [place] [address] PCP - General Family Medicine 05/27/15 Hever Martínez, CARDIOTHORACIC ICU RN.DRAMATIC CRITIC [address] [facility] [place] [place] [address] [employer] Wafer [employer] Internal Medicine 01/15/24 Nylon Mender Relationship Specialty Start Date End Date Paddy Zaidi MD [address] [place] [address] PCP - General Family Medicine 05/27/15 Hever Martínez, CARDIOTHORACIC ICU RN.DRAMATIC CRITIC [address] [facility] [address] [place], [place] [address] [employer] Wa[employer] Internal Medicine 01/15/24 Nylon Mender Relationship Specialty Start Date End Date Paddy Zaidi MD [address] [place] [address] PCP - General Family Medicine 05/27/15 Hever Martínez, CARDIOTHORACIC ICU RN.DRAMATIC CRITIC [address] [facility] [address] [place], [place] [address] [employer] Wa[employer] Internal Medicine 01/15/24 Nylon Mender Relationship Specialty Start Date End Date Paddy Zaidi MD [address] [place] [address] PCP - General Family Medicine 05/27/15 Hever Martínez, CARDIOTHORACIC ICU RN.DRAMATIC CRITIC [address] [facility] [address] [place], [place] [address] [employer] Wafer [employer] Internal Medicine 01/15/24 Nylon Mender Relationship Specialty Start Date End Date Paddy Zaidi MD [address] [place] [address] PCP - General Family Medicine 05/27/15 Hever Martínez, CARDIOTHORACIC ICU RN.DRAMATIC CRITIC [address] [facility] [address] [place], [place] [address] [employer] Wafer [employer] Internal Medicine 01/15/24 Nylon Mender Relationship Specialty Start Date End Date Paddy Zaidi MD [address] [place] [address] PCP - General Family Medicine 05/27/15 Hever Martínez, CARDIOTHORACIC ICU RN.DRAMATIC CRITIC [address] [facility] [address] [place], [place] [address] [employer] Wafer [employer] Internal Medicine 01/15/24 Nylon Mender Relationship Specialty Start Date End Date Paddy Zaidi MD [address] [place], [place] [address] PCP - General Family Medicine 05/27/15 Hever Martínez, CARDIOTHORACIC ICU RN.DRAMATIC CRITIC [address] [facility] [address] [place] [id number] [employer] Wafer [employer] Internal Medicine 01/15/24 Nylon Mender Relationship Specialty Start Date End Date Paddy Zaidi MD [address] [place], [place] [address] PCP - General Family Medicine 05/27/15 Hever Martínez, CARDIOTHORACIC ICU RN.DRAMATIC CRITIC [address] [facility] [address] [place] [id number] [employer] Wa[employer] Internal Medicine 01/15/24 Nylon Mender Relationship Specialty Start Date End Date Paddy Zaidi MD [facility] [place] [address] PCP - General Family Medicine 05/27/15 Hever Martínez, CARDIOTHORACIC ICU RN.DRAMATIC CRITIC [address] [facility] [address] [place], [place] [address] [employer] Wafer [employer] Internal Medicine 01/15/24 Nylon Mender Relationship Specialty Start Date End Date Paddy Zaidi MD [address] [place] [address] PCP - General Family Medicine 05/27/15 Hever Martínez, CARDIOTHORACIC ICU RN.DRAMATIC CRITIC [address] [facility] [address] [place] [address] [employer] Wafer [employer] Internal Medicine 01/15/24 Nylon Mender Relationship Specialty Start Date End Date Paddy Zaidi MD [address] [place] [address] PCP - General Family Medicine 05/27/15 Hever Martínez, NORA.DRAMATIC CRITIC [address] [facility] [place] [address] [employer] Wafer Bre[employer] Internal Medicine 01/15/24 Team Status: Active Member [...] End: September 12, 2024 Dr. Kristopher Ray DO Other Provider Active Sta rt: September 10, 2024 End: September 12, 2024 Dr. John Nayak MD Other Provider Active Star t: September 10, 2024 End: September 12, 2024 Dr. Rosalino Asif MD Other Provider Active St art: September 10, 2024 End: September 12, 2024 Dr. Patriica Burden MD Other Provider Active Start: September 10, 2024 End: September 12, 2024 Dr. Martínez Mclean MD Other Provider Active S tart: September 10, 2024 End: September 12, 2024 Dr. Omar Hidalgo MD Other Provider Active Start: September 10, 2024 End: September 12, 2024 Tylor Rose GAS APPLIANCE REPAIRER, GAS APPLIANCE REPAIRER-C Other Provider Active Start : September 10, [...] Active Start: September 11, 2024 Tylor Rose GAS APPLIANCE REPAIRER, GAS APPLIANCE REPAIRER-C Other Provider Active Start : September 11, [...] Active Start: September 11, 2024 Tylor Rose GAS APPLIANCE REPAIRER, GAS APPLIANCE REPAIRER-C Other Provider Active Start : September 11, [...] Active Start: September 12, 2024 Tylor Rose GAS APPLIANCE REPAIRER, GAS APPLIANCE REPAIRER-C Other Provider Active Start : September 12, 2024 Jenny Yancey PA, PA Other Provider Active Start: September 12, 2024 JI Burgos Other Provider Active Start: September 12, 2024 [...] Maikel Morocho MD Other Provider Active Start: [facility] 2024 Nerissa Lebron MD Other Provider Active [...] Maikel Morocho MD Other Provider Active Start: [facility] 2024 Nerissa Lebron MD Other Provider Active [...] Other Provider Active Start: September 19, 2024 Nylon Mender Relationship Specialty Start Date End Date Paddy Zaidi MD [address] [place], [place] [address] PCP - General Family Medicine 05/27/15 Hever Martínez, CARDIOTHORACIC ICU RN.DRAMATIC CRITIC [address] [facility] [place] [address] [employer] Wafer [employer] Internal Medicine 01/15/24 Nylon Mender Relationship Specialty Start Date End Date Paddy Zaidi MD [address] [place] [address] PCP - General Family Medicine 05/27/15 Hever Martínez, CARDIOTHORACIC ICU RN.DRAMATIC CRITIC [address] [facility] [place] [address] [employer] Wafer [employer] Internal Medicine 01/15/24 Goals (unrecognized section and [...] BE BASED ON THE PRIMARY CLINICAL RECORDS. [facility]. provides no warranty or guarantee of the accuracy or completeness of information in this document.
[2024-09-27 21:50] LABS: Troponin T High Sens 2 HR 16 ng/L (<=22)
[2024-09-27 23:03] LABS: Troponin T High Sens 4 HR 17 ng/L (<=22)
[2024-09-27 23:41] LABS: Procalcitonin 0.06 ng/mL (<=0.10)
[2024-09-28] VITALS (7 sets, daily range): BP systolic 102–117; BP diastolic 64–74; PULSE 71–98; RESP 16–18; TEMP 36.1–37; O2SAT 95–98; BMI 27.4
[2024-09-28 06:00] LABS: Hematocrit 40.7 % (40-54); Hemoglobin 13.0 g/dL (13.0-16.5); Immature Granulocytes Count 0.060 X10^3/uL (0.0-0.0); Mean Corp Hgb Conc 31.9 g/dL (32-36); Mean Corpuscular Volume 96.9 fL (80-94); Mean Platelet Vol. 10.3 fl (6.2-12.0); NRBC Flagged by Analyzer 0 % (0-5); Platelet Count 180 K/mm3 (150-450); RBC Distribution Width CV 13.9 % (11.6-14.6); RBC Distribution Width SD 49.5 fl (35.1-43.9); Red Blood Count 4.20 M/mm3 (4.6-6.2); White Blood Count 9.7 K/mm3 (4.4-11.0)
[2024-09-28 06:09] LABS: Prothrombin Time (Protime)PT. 51.7 SECONDS (11.7-14.9)
[2024-09-28 06:41] LABS: AST(SGOT) 18 U/L (<=37); Alanine Aminotransfer ALT/SGPT 14 U/L (<=46); Albumin, Serum 3.7 g/dL (3.4-4.8); Alkaline Phosphatase 118 U/L (40-129); Anion Gap 10 (5-15); BUN 34 mg/dL (4-19); BUN/Creat Ratio 32.9 RATIO (10-20); Calcium,Total 9.3 mg/dL (7.6-11.0); Carbon Dioxide 31.8 mmol/L (21.0-32.0); Chloride 100 mmol/L (98-108); Estimated Creatinine Clearance 57.42 ml/min (50-250); Globulin 2.9 g/dL (2.2-4.2); Glucose 106 mg/dL (70-99); Potassium 4.4 mmol/L (3.3-5.1)
[2024-09-28] MEDS: Budesonide Respules 0.5 MG/2 ML AMPUL.NEB. INHALATION ×2 (07:42→19:55)
[2024-09-28] MEDS: Ensure Plus High Protein 120 ML LIQUID PO (09:20)
--- NOTE | 2024-09-28 11:59 | CASEMGMT ---
YOUSSEF Due to pts orientation status, call was placed to pts son (Gigi) to review YOUSSEF form. was left with request for return call. Ambika Bryson DC Planning Asst.
--- NOTE | 2024-09-28 12:12 | PN_ITS ---
Subjective Subjective Patient seen and examined. He had no active complaints and was lying calmly in bed. HE was sent to the ED to be evaluated for failure to thrive and debility. He will need placement. Objective Data Objective Data Vital Signs: Vital Signs Temp Pulse Resp BP Pulse Ox O2 Del Method O2 Flow Rate 97.5 F L 73 18 102/71 98 Nasal Cannula 3 09/28/24 09:55 09/28/24 09:55 09/28/24 09:55 09/28/24 09:55 09/28/24 09:55 09/28/24 09:55 09/28/24 10:42 Oxygen Flow Rate (L/min) 3 Oxygen Delivery Method Nasal Cannula Weight: 196 lb 3.382 oz Body Mass Index (BMI) 27.4 Intake & Output: Intake and Output for Last 24 Hours 09/26/24 09/27/24 09/28/24 23:59 23:59 23:59 Intake Total 400 / 400 Output Total 200 / 200 Balance 200 / 200 Lab / Micro Data 09/28/24 05:31 09/28/24 05:31 Labs: Laboratory Results - last 24 hr 09/27/24 18:30: WBC 11.9 H, RBC 4.34 L, Hgb 13.2, Hct 41.8, MCV 96.3 H, MCH 30.4, MCHC 31.6 L, RDW Std Deviation 49.3 H, RDW Coeff of Erica 13.9, Plt Count 213, MPV 10.4, Immature Gran % (Auto) 0.800, Neut % (Auto) 75.9 H, Lymph % (Auto) 9.3 L, Clinch % (Auto) 7.3, Eos % (Auto) 5.9 H, Baso % (Auto) 0.8, Absolute Neuts (auto) 9.0 H, Absolute Lymphs (auto) 1.10, Nucleated RBC % 0, Sodium 141, Potassium 4.9, Chloride 100, Carbon Dioxide 32.1 H, Anion Gap 9, BUN 34 H, C reatinine 1.23 H, Estim Creat Clear Calc 47.62 L, Est GFR (MDRD) Non-Af 58 L, B UN/Creatinine Ratio 27.9 H, Glucose 91, Calcium 9.6, Magnesium 2.4 H, Troponin T High Sens 18 D 09/27/24 20:50: PT 50.4 H, INR 5.4 H*, Troponin T Hi Sens 2 Hr 16 09/27/24 22:26: Troponin T Hi Sens 4Hr 17, Procalcitonin 0.06 09/28/24 05:31: WBC 9.7, RBC 4.20 L, Hgb 13.0, Hct 40.7, MCV 96.9 H, MCH 31.0, M CHC 31.9 L, RDW Std Deviation 49.5 H, RDW Coeff of Erica 13.9, Plt Count 180, MPV 10.3, Immature Gran % (Auto) 0.600, Neut % (Auto) 73.9 H, Lymph % (Auto) 11.0 L, Clinch % (Auto) 7.0, Eos % (Auto) 6.7 H, Baso % (Auto) 0.8, Absolute Neuts (auto) 7.1, Absolute Lymphs (auto) 1.06, Nucleated RBC % 0, PT 51.7 H, INR 5.6 H*, Sodium 142, Potassium 4.4, Chloride 100, Carbon Dioxide 31.8, Anion Gap 10, BUN 34 H, Creatinine 1.02, Estim Creat Clear Calc 57.42, Est GFR (MDRD) Non-Af 72, B UN/Creatinine Ratio 32.9 H, Glucose 106 H, Calcium 9.3, Total Bilirubin 0.77, AST 18, ALT 14, Alkaline Phosphatase 118, Total Protein 6.5, Albumin 3.7, Globulin 2.9, Albumin/Globulin Ratio 1.3 Micro: Microbiology 09/27/24 18:38 Mucosa - Nose SARS-CoV-2, Influenza & RSV (PCR) - Final Radiography Diagnostic Testing: Radiology Impression Chest X-Ray 09/27/24 18:45 IMPRESSION: Pulmonary findings as above. Reading Location: [facility] Physical Exam Const alert and oriented x3 Constitutional Narrative: frail, weak General Appearance: cooperative HEENT normocephalic, head/scalp atraumatic, moist oral mucous membranes and oropharynx normal Eyes PERRL and EOMs intact bilaterally Neck supple and no JVD Lymph Lymphatic: no lymphedema noted Resp Resp Narrative: mildly diminished breath sounds bibasally, no wheezes or crackles. On 3L of oxygen which is his baseline. Cardio regular rate, regular rhythm, S1 normal heart sound, S2 normal heart sound and no murmurs GI normal to inspection, nondistended, normoactive bowel sounds, soft to palpation and non-tender Extremity normal capillary refill, no clubbing, cyanosis or edema and no calf tenderness General Extremity: no tenderness to palpation of joints or extremities Skin General Skin Exam: no breakdown Neuro CN's II-XII intact bilaterally and no focal motor deficits Motor Exam: general weakness Psych thought process normal and cooperative Appearance: appropriate Assessment & Plan Assessment/Plan (1) Adult failure to thrive: PLAN: Plan #Debility and weakness due to failure to thrive * was recently admitted for aspiration pneumonia and recommendation was for him to go to SNF. However, there was no bed in TCU. * Was sent to the urgent care the day before admission o/a of weakness and debility. * PT.OT on board. Fall precautions * will need placement due to weakness and debility with failure to thrive. * #Paroxysmal afib: onn coumadin and atenolol. INR is supratherapeutic at 5.6 today. Coumadin therefore held. #Dysphagia in the setting of history of CVA * has left vocal cord paralysis and has had recurrent aspiration pneumonia * speech therapy on board. Aspiration precautions. * #CAD * s/p CABG and PCI. * on statin and atenolol. * #Chronic respiratory failure due to COPD: on 3L of oxygen at baseline. Breathing treatment with bronchodilators. Titrate oxygen to maintain sats >90% #Chronic neuropathy: on gabapentin. #Histoyr of CVA: on coumadin. Monitor INR> on statin. #HFpEF: on lasix and spironolactone. Has known EF of 53% from most recent echo on 09/10/2024. #Anxiety and depression: on paroxetine and buspar #Hypertension: on lasix, losartan, atenolol and spironolactone. IV hydralazine prn #Hypothyroidism:on synthroid #Hyperlipidemia: on statin #DVT prophylaxis: on coumadin. INR today is elevted at 5.6. Coumadin therfore held. Charges/Coding Visit Charges Inpatient E&M: 60928 Subs Hosp L2
--- NOTE | 2024-09-28 14:25 | CASEMGMT ---
YOUSSEF Met with patient to complete YOUSSEF form. YOUSSEF form and its content were verbally explained and patient's questions were answered to the best of my ability.? Patient voiced understanding and signed YOUSSEF form.? Patient provided a copy of signed YOUSSEF form and original placed in patient's chart.? Patient had no further questions. Ambika Bryson, Discharge Planning Asst
--- NOTE | 2024-09-28 15:30 | CHAPLAIN ---
Type of Pastoral Visit _x__ Initial Visit ___ Follow-up Visit ___ On-call Visit ___ General Patient Visit ___ Spiritual Assessment ___ Family Conference ___ Bereavement ___ Rapid Response ___ Code Blue ___ Other (describe below) Pastoral Care Referral From _x__ Patient ___ Family ___ Nurse ___ Physician ___ Floatlight Powder Mixer ___ Slab Lifting Engineer ___ Other (describe below) Sacrament/Intervention _x__ Active listening ___ Anointing ___ Lutheran ___ Bereavement ___ Communion ___ Vicky exploration ___ ___ Life review _x__ Prayer ___ Reconciliation ___ Sacrament of Sick _x__ Supportive presence ___ Wedding ___ Other (describe below) Pastoral Comments assisted patient in calling for help as he needed the bathroom on the first attempt; on second attempt the patient had a few visitors and there was active conversation; offered support and conversation; prayer welcomed
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
--- NOTE | 2024-09-28 15:39 | CASEMGMT ---
SW SNF referral sent to [facility]. NATO Bhardwaj
[2024-09-28] MEDS: hydrOXYzine PAM 25 MG Capsule PO (16:10)
[2024-09-29] VITALS (7 sets, daily range): BP systolic 95–127; BP diastolic 54–82; PULSE 80–95; RESP 16–20; TEMP 36.1–36.7; O2SAT 96–99; BMI 27.5
[2024-09-29 04:59] LABS: Hematocrit 40.2 % (40-54); Hemoglobin 12.7 g/dL (13.0-16.5); Immature Granulocytes Count 0.040 X10^3/uL (0.0-0.0); Mean Corp Hgb Conc 31.6 g/dL (32-36); Mean Corpuscular Volume 95.7 fL (80-94); Mean Platelet Vol. 10.5 fl (6.2-12.0); NRBC Flagged by Analyzer 0 % (0-5); Platelet Count 157 K/mm3 (150-450); RBC Distribution Width CV 13.7 % (11.6-14.6); RBC Distribution Width SD 48.1 fl (35.1-43.9); Red Blood Count 4.20 M/mm3 (4.6-6.2); White Blood Count 8.2 K/mm3 (4.4-11.0)
[2024-09-29 06:11] LABS: Anion Gap 10 (5-15); BUN 29 mg/dL (4-19); BUN/Creat Ratio 31.0 RATIO (10-20); Calcium,Total 9.0 mg/dL (7.6-11.0); Carbon Dioxide 31.5 mmol/L (21.0-32.0); Chloride 101 mmol/L (98-108); Estimated Creatinine Clearance 61.65 ml/min (50-250); Glucose 95 mg/dL (70-99); Potassium 4.0 mmol/L (3.3-5.1)
[2024-09-29] MEDS: Budesonide Respules 0.5 MG/2 ML AMPUL.NEB. INHALATION ×2 (07:32→19:38)
[2024-09-29 08:07] LABS: Prothrombin Time (Protime)PT. 47.0 SECONDS (11.7-14.9)
--- NOTE | 2024-09-29 09:43 | PN_ITS ---
Subjective Subjective Patient seen and examined. He had no active complaints. Review of systems is otherwise negative. He is awaiting placement. Objective Data Objective Data Vital Signs: Vital Signs Temp Pulse Resp BP Pulse Ox O2 Del Method O2 Flow Rate 97.7 F L 95 18 127/82 H 98 Nasal Cannula 3 09/29/24 08:02 09/29/24 08:02 09/29/24 08:02 09/29/24 08:02 09/29/24 08:02 09/29/24 08:02 09/29/24 08:02 Oxygen Flow Rate (L/min) 3 Oxygen Delivery Method Nasal Cannula Weight: 196 lb 6.91 oz Body Mass Index (BMI) 27.5 Intake & Output: Intake and Output for Last 24 Hours 09/27/24 09/28/24 09/29/24 23:59 23:59 23:59 Intake Total 700 / 850 150 / 150 Output Total 200 / 200 200 / 200 Balance 500 / 650 -50 / -50 Lab / Micro Data 09/29/24 04:12 09/29/24 04:12 Labs: Laboratory Results - last 24 hr 09/29/24 04:12: WBC 8.2, RBC 4.20 L, Hgb 12.7 L, Hct 40.2, MCV 95.7 H, MCH 30.2, MCHC 31.6 L, RDW Std Deviation 48.1 H, RDW Coeff of Erica 13.7, Plt Count 157, MPV 10.5, Immature Gran % (Auto) 0.500, Neut % (Auto) 70.4 H, Lymph % (Auto) 14.0 L, [place] % (Auto) 7.6, Eos % (Auto) 6.8 H, Baso % (Auto) 0.7, Absolute Neuts (auto) 5.8, Absolute Lymphs (auto) 1.15, Nucleated RBC % 0, PT 47.0 H, INR 4.9 H*, Sodium 143, Potassium 4.0, Chloride 101, Carbon Dioxide 31.5, Anion Gap 10, BUN 29 H, Creatinine 0.95, Estim Creat Clear Calc 61.65, Est GFR (MDRD) Non-Af 79, B UN/Creatinine Ratio 31.0 H, Glucose 95, Calcium 9.0 Micro: Microbiology 09/27/24 18:38 Mucosa - Nose SARS-CoV-2, Influenza & RSV (PCR) - Final Physical Exam Const alert and oriented x3 Constitutional Narrative: frail, weak General Appearance: cooperative HEENT normocephalic, head/scalp atraumatic, moist oral mucous membranes and oropharynx normal Eyes PERRL and EOMs intact bilaterally Neck supple and no JVD Lymph Lymphatic: no lymphedema noted Resp Resp Narrative: mildly diminished breath sounds bibasally, no wheezes or crackles. On 3L of oxygen which is his baseline. Cardio regular rate, regular rhythm, S1 normal heart sound, S2 normal heart sound and no murmurs GI normal to inspection, nondistended, normoactive bowel sounds, soft to palpation and non-tender Extremity normal capillary refill, no clubbing, cyanosis or edema and no calf tenderness General Extremity: no tenderness to palpation of joints or extremities Skin General Skin Exam: no breakdown Neuro CN's II-XII intact bilaterally and no focal motor deficits Motor Exam: general weakness Psych thought process normal and cooperative Appearance: appropriate Assessment & Plan Assessment/Plan (1) Adult failure to thrive: PLAN: Plan #Debility and weakness due to failure to thrive * was recently admitted for aspiration pneumonia and recommendation was for him to go to SNF. However, there was no bed in TCU. * Was sent to the urgent care the day before admission o/a of weakness and debility. * PT.OT on board. Fall precautions * will need placement due to weakness and debility with failure to thrive. * #Paroxysmal afib: onn coumadin and atenolol. INR is supratherapeutic at 4.9 today, down froom 5.6 yesterday. Coumadin therefore held. #Dysphagia in the setting of history of CVA * has left vocal cord paralysis and has had recurrent aspiration pneumonia * speech therapy on board. Aspiration precautions. * #CAD * s/p CABG and PCI. * on statin and atenolol. * #Chronic respiratory failure due to COPD: * on 3L of oxygen at baseline. Breathing treatment with bronchodilators. Titrate oxygen to maintain sats >90% #Chronic neuropathy: on gabapentin. #Histoyr of CVA: on coumadin. Monitor INR. on statin. #HFpEF: on lasix and spironolactone. Has known EF of 53% from most recent echo on 09/10/2024. #Anxiety and depression: on paroxetine and buspar #Hypertension: on lasix, losartan, atenolol and spironolactone. IV hydralazine prn #Hypothyroidism:on synthroid #Hyperlipidemia: on statin #DVT prophylaxis: on coumadin. INR today is still elevated at 4.9. continue holding coumadin. Charges/Coding Visit Charges Inpatient E&M: 00120 Subs Hosp L2
--- NOTE | 2024-09-29 17:02 | NURSING ---
Pt's lead fabricator bringing in food from outside despite speech therapy recommendations of soft and bite sized/nectar thick liquids. Pt and lead fabricator aware that pt was seen by ST and recommended these orders d/t frequent aspiration pneumonia.
[2024-09-30] VITALS (8 sets, daily range): BP systolic 96–125; BP diastolic 41–73; PULSE 77–91; RESP 16–18; TEMP 36.2–36.9; O2SAT 96–99; BMI 27.2
[2024-09-30 05:59] LABS: Hematocrit 42.4 % (40-54); Hemoglobin 13.4 g/dL (13.0-16.5); Immature Granulocytes Count 0.040 X10^3/uL (0.0-0.0); Mean Corp Hgb Conc 31.6 g/dL (32-36); Mean Corpuscular Volume 96.1 fL (80-94); Mean Platelet Vol. 10.8 fl (6.2-12.0); NRBC Flagged by Analyzer 0 % (0-5); Platelet Count 163 K/mm3 (150-450); RBC Distribution Width CV 13.7 % (11.6-14.6); RBC Distribution Width SD 48.9 fl (35.1-43.9); Red Blood Count 4.41 M/mm3 (4.6-6.2); White Blood Count 8.2 K/mm3 (4.4-11.0)
[2024-09-30 06:17] LABS: Prothrombin Time (Protime)PT. 26.3 SECONDS (11.7-14.9)
[2024-09-30 06:39] LABS: Anion Gap 11 (5-15); BUN 28 mg/dL (4-19); BUN/Creat Ratio 28.1 RATIO (10-20); Calcium,Total 9.4 mg/dL (7.6-11.0); Carbon Dioxide 28.6 mmol/L (21.0-32.0); Chloride 102 mmol/L (98-108); Estimated Creatinine Clearance 59.16 ml/min (50-250); Glucose 99 mg/dL (70-99); Potassium 3.9 mmol/L (3.3-5.1)
[2024-09-30] MEDS: Budesonide Respules 0.5 MG/2 ML AMPUL.NEB. INHALATION ×2 (06:48→19:06)
--- NOTE | 2024-09-30 10:06 | PN_ITS ---
Subjective Subjective Patient seen and examined with his nurse by his bedside. He had no active complaints and had an uneventful night. Review of systems is otherwise negative. He has remained hemodynamically stable. He is awaiting placement. He remains on his baseline 3L of oxygen. Objective Data Objective Data Vital Signs: Vital Signs Temp Pulse Resp BP Pulse Ox O2 Del Method O2 Flow Rate 97.2 F L 89 18 125/73 H 98 Nasal Cannula 3 09/30/24 08:15 09/30/24 08:15 09/30/24 08:15 09/30/24 08:15 09/30/24 08:15 09/30/24 08:15 09/30/24 08:15 Oxygen Flow Rate (L/min) 3 Oxygen Delivery Method Nasal Cannula Weight: 194 lb 7.163 oz Body Mass Index (BMI) 27.2 Intake & Output: Intake and Output for Last 24 Hours 09/28/24 09/29/24 09/30/24 23:59 23:59 23:59 Intake Total 700 / 850 150 / 400 450 / 450 Output Total 200 / 200 200 / 200 Balance 500 / 650 -50 / 200 450 / 450 Lab / Micro Data 09/30/24 05:32 09/30/24 05:32 Labs: Laboratory Results - last 24 hr 09/30/24 05:32: WBC 8.2, RBC 4.41 L, Hgb 13.4, Hct 42.4, MCV 96.1 H, MCH 30.4, M CHC 31.6 L, RDW Std Deviation 48.9 H, RDW Coeff of Erica 13.7, Plt Count 163, MPV 10.8, Immature Gran % (Auto) 0.500, Neut % (Auto) 71.3 H, Lymph % (Auto) 15.5 L, [place] % (Auto) 6.6, Eos % (Auto) 5.5 H, Baso % (Auto) 0.6, Absolute Neuts (auto) 5.8, Absolute Lymphs (auto) 1.27, Nucleated RBC % 0, PT 26.3 H, INR 2.4, Sodium 142, Potassium 3.9, Chloride 102, Carbon Dioxide 28.6, Anion Gap 11, BUN 28 H, Creatinine 0.99, Estim Creat Clear Calc 59.16, Est GFR (MDRD) Non-Af 75, B UN/Creatinine Ratio 28.1 H, Glucose 99, Calcium 9.4 Micro: Microbiology 09/27/24 18:38 Mucosa - Nose SARS-CoV-2, Influenza & RSV (PCR) - Final Physical Exam Const alert and oriented x3 Constitutional Narrative: frail, weak General Appearance: cooperative HEENT normocephalic, head/scalp atraumatic, moist oral mucous membranes and oropharynx normal Eyes PERRL and EOMs intact bilaterally Neck supple and no JVD Lymph Lymphatic: no lymphedema noted Resp Resp Narrative: mildly diminished breath sounds bibasally, no wheezes or crackles. On 3L of oxygen which is his baseline. Cardio regular rate, regular rhythm, S1 normal heart sound, S2 normal heart sound and no murmurs GI normal to inspection, nondistended, normoactive bowel sounds, soft to palpation and non-tender Extremity normal capillary refill, no clubbing, cyanosis or edema and no calf tenderness General Extremity: no tenderness to palpation of joints or extremities Skin General Skin Exam: no breakdown Neuro CN's II-XII intact bilaterally and no focal motor deficits Motor Exam: general weakness Psych thought process normal and cooperative Appearance: appropriate Assessment & Plan Assessment/Plan (1) Adult failure to thrive: PLAN: Plan #Debility and weakness due to failure to thrive * was recently admitted for aspiration pneumonia and recommendation was for him to go to SNF. However, there was no bed in TCU. * Was sent to the urgent care the day before admission o/a of weakness and debility. * PT.OT on board. Fall precautions * will need placement due to weakness and debility with failure to thrive. * #Paroxysmal afib: on coumadin and atenolol. INR today is down to 2.4. Will resume coumadin #Dysphagia in the setting of history of CVA * has left vocal cord paralysis and has had recurrent aspiration pneumonia * speech therapy on board. Aspiration precautions. * #CAD * s/p CABG and PCI. * on statin and atenolol. * #Chronic respiratory failure due to COPD: * on 3L of oxygen at baseline. Breathing treatment with bronchodilators. Titrate oxygen to maintain sats >90% #Chronic neuropathy: on gabapentin. #History of CVA: on coumadin. Monitor INR. on statin. #HFpEF: on lasix and spironolactone. Has known EF of 53% from most recent echo on 09/10/2024. #Anxiety and depression: on paroxetine and buspar #Hypertension: on lasix, losartan, atenolol and spironolactone. IV hydralazine prn #Hypothyroidism:on synthroid #Hyperlipidemia: on statin #DVT prophylaxis: on coumadin. INR today is 2.4. Will resume Charges/Coding Visit Charges Inpatient E&M: 10363 Subs Hosp L2
[2024-09-30] MEDS: Warfarin (PBKC) 5 MG Tablet PO (17:20)
[2024-10-01] VITALS (11 sets, daily range): BP systolic 95–116; BP diastolic 62–70; PULSE 80–95; RESP 16–18; TEMP 36.5–36.9; O2SAT 92–98; BMI 27.3
[2024-10-01 04:46] LABS: Hematocrit 39.4 % (40-54); Hemoglobin 12.7 g/dL (13.0-16.5); Immature Granulocytes Count 0.050 X10^3/uL (0.0-0.0); Mean Corp Hgb Conc 32.2 g/dL (32-36); Mean Corpuscular Volume 95.2 fL (80-94); Mean Platelet Vol. 10.8 fl (6.2-12.0); NRBC Flagged by Analyzer 0 % (0-5); Platelet Count 149 K/mm3 (150-450); RBC Distribution Width CV 13.8 % (11.6-14.6); RBC Distribution Width SD 47.9 fl (35.1-43.9); Red Blood Count 4.14 M/mm3 (4.6-6.2); White Blood Count 8.2 K/mm3 (4.4-11.0)
[2024-10-01 04:53] LABS: Prothrombin Time (Protime)PT. 22.7 SECONDS (11.7-14.9)
[2024-10-01 05:11] LABS: Anion Gap 10 (5-15); BUN 29 mg/dL (4-19); BUN/Creat Ratio 29.7 RATIO (10-20); Calcium,Total 9.1 mg/dL (7.6-11.0); Carbon Dioxide 29.0 mmol/L (21.0-32.0); Chloride 102 mmol/L (98-108); Estimated Creatinine Clearance 59.76 ml/min (50-250); Glucose 96 mg/dL (70-99); Potassium 3.8 mmol/L (3.3-5.1)
[2024-10-01] MEDS: Budesonide Respules 0.5 MG/2 ML AMPUL.NEB. INHALATION ×2 (06:50→18:57)
--- NOTE | 2024-10-01 08:02 | PN.HOSP_ITS ---
Reason for Visit Chief Complaint: Debility, weakness, need for placement consideration. Subjective Subjective No new complaints. Feeling well. Objective Data Objective Data Vital Signs: Vital Signs Temp Pulse Resp BP Pulse Ox O2 Del Method O2 Flow Rate 36.7 C 82 16 107/66 96 Nasal Cannula 2 10/01/24 05:33 10/01/24 06:51 10/01/24 06:51 10/01/24 05:33 10/01/24 06:51 10/01/24 06:51 10/01/24 06:51 Oxygen Flow Rate (L/min) 2 Oxygen Delivery Method Nasal Cannula Weight: 88.5 kg Body Mass Index (BMI) 27.3 Intake & Output: Intake and Output for Last 24 Hours 09/29/24 09/30/24 10/01/24 23:59 23:59 23:59 Intake Total 150 / 400 550 / 550 600 / 600 Output Total 200 / 200 Balance -50 / 200 550 / 550 600 / 600 Lab / Micro Data 10/01/24 03:59 10/01/24 03:59 Labs: Laboratory Results - last 24 hr 10/01/24 03:59: WBC 8.2, RBC 4.14 L, Hgb 12.7 L, Hct 39.4 L, MCV 95.2 H, MCH 30.7, MCHC 32.2, RDW Std Deviation 47.9 H, RDW Coeff of Erica 13.8, Plt Count 149 L, MPV 10.8, Immature Gran % (Auto) 0.600, Neut % (Auto) 70.9 H, Lymph % (Auto) 16.0 L, [place] % (Auto) 7.1, Eos % (Auto) 4.5, Baso % (Auto) 0.9, Absolute Neuts (auto) 5.8, Absolute Lymphs (auto) 1.30, Nucleated RBC % 0, PT 22.7 H, INR 2.0, Sodium 141, Potassium 3.8, Chloride 102, Carbon Dioxide 29.0, Anion Gap 10, BUN 29 H, Creatinine 0.98, Estim Creat Clear Calc 59.76, Est GFR (MDRD) Non-Af 77, B UN/Creatinine Ratio 29.7 H, Glucose 96, Calcium 9.1 Micro: Microbiology 09/27/24 18:38 Mucosa - Nose SARS-CoV-2, Influenza & RSV (PCR) - Final Physical Exam Const alert and no apparent distress Constitutional Narrative: up in chair. afebrile. Resp normal respiratory effort, no retractions, no use of accessory muscles and clear to auscultation bilaterally Cardio regular rate, regular rhythm, S1 normal heart sound and S2 normal heart sound Neuro Sensorium / Orientation: awake, alert, oriented to person and oriented to place Assessment & Plan Assessment/Plan (1) Adult failure to thrive: PLAN: PT OT Plan for short term SNF. Declined by TCU, looking into [facility]. PLAN: Plan Chronic conditions: * CVA * COPD/chronic respiratory failure: stable. on 3l/m * pAFib: INR 2. continue warfarin * prostate CA * CSA * HTN: continue losartan * left vocal cord paralysis VTE prophylaxis: not indicated as pt already anticoagulated. Charges/Coding Visit Charges Inpatient E&M: 99725 Subs Hosp L2
--- NOTE | 2024-10-01 09:05 | CASEMGMT ---
Discharge Planning [facility] declined d/t no bed availability. SW updated. Ambika Bryson DC Planning Asst.
--- NOTE | 2024-10-01 09:29 | CASEMGMT ---
Addendum entered by Ambika Bryson 10/01/24 12:21: [facility] accepted and will submit for precert. SW updated. Ambika Bryson DC Planning Asst. Original Note: Discharge Planning Referral sent to [facility]. Ambika Bryson DC Planning Asst.
[2024-10-01] MEDS: Ensure Plus High Protein 120 ML LIQUID PO ×2 (09:49→12:30)
--- NOTE | 2024-10-01 11:11 | CASEMGMT ---
Social Work SW did let pt know that [facility] does not have a bed, and the referral is pending w/[facility]. Pt agreeable to SW updating son, SW will [facility] CARI Millan
--- NOTE | 2024-10-01 13:12 | CASEMGMT ---
Social Work RACHELE Serra did let pt know that [facility] can take pt and started precert. SW called son to let him know, message left to call SW back. RACHELE will continue to follow. CARI Millan
[2024-10-01] MEDS: Warfarin (PBKC) 5 MG Tablet PO (18:01)
[2024-10-01] MEDS: Albuterol 2.5 MG/3 ML VIAL.NEB. INHALATION (18:58)
[2024-10-02] VITALS (10 sets, daily range): BP systolic 98–134; BP diastolic 60–91; PULSE 76–92; RESP 16–20; TEMP 36.4–36.7; O2SAT 93–97
[2024-10-02] MEDS: Budesonide Respules 0.5 MG/2 ML AMPUL.NEB. INHALATION (07:01)
[2024-10-02 07:41] LABS: Hematocrit 38.6 % (40-54); Hemoglobin 12.4 g/dL (13.0-16.5); Immature Granulocytes Count 0.060 X10^3/uL (0.0-0.0); Mean Corp Hgb Conc 32.1 g/dL (32-36); Mean Corpuscular Volume 95.5 fL (80-94); Mean Platelet Vol. 10.3 fl (6.2-12.0); NRBC Flagged by Analyzer 0 % (0-5); Platelet Count 143 K/mm3 (150-450); RBC Distribution Width CV 13.5 % (11.6-14.6); RBC Distribution Width SD 47.6 fl (35.1-43.9); Red Blood Count 4.04 M/mm3 (4.6-6.2); White Blood Count 8.7 K/mm3 (4.4-11.0)
[2024-10-02 07:46] LABS: Prothrombin Time (Protime)PT. 24.4 SECONDS (11.7-14.9)
--- NOTE | 2024-10-02 08:08 | PCM.PN.HOSP ---
Reason for Visit Chief Complaint: Debility, weakness, need for placement consideration. Subjective Subjective Feeling well. No events overnight. Objective Data Objective Data Vital Signs: Vital Signs Temp Pulse Resp BP Pulse Ox O2 Del Method O2 Flow Rate 36.7 C 88 16 119/63 94 Nasal Cannula 2 10/02/24 04:35 10/02/24 04:35 10/02/24 04:35 10/02/24 04:35 10/02/24 04:39 10/02/24 04:39 10/02/24 04:39 Oxygen Flow Rate (L/min) 2 Oxygen Delivery Method Nasal Cannula Weight: 88.5 kg Body Mass Index (BMI) 27.3 Intake & Output: Intake and Output for Last 24 Hours 09/30/24 10/01/24 10/02/24 23:59 23:59 23:59 Intake Total 550 / 550 1550 / 1550 700 / 700 Output Total 550 / 550 300 / 300 Balance 550 / 550 1000 / 1000 400 / 400 Lab / Micro Data 10/02/24 06:46 10/02/24 06:46 Labs: Laboratory Results - last 24 hr 10/02/24 06:46: WBC 8.7, RBC 4.04 L, Hgb 12.4 L, Hct 38.6 L, MCV 95.5 H, MCH 30.7, MCHC 32.1, RDW Std Deviation 47.6 H, RDW Coeff of Erica 13.5, Plt Count 143 L, MPV 10.3, Immature Gran % (Auto) 0.700, Neut % (Auto) 76.1 H, Lymph % (Auto) 12.0 L, [place] % (Auto) 6.8, Eos % (Auto) 3.8, Baso % (Auto) 0.6, Absolute Neuts (auto) 6.6, Absolute Lymphs (auto) 1.04, Nucleated RBC % 0, PT 24.4 H, INR 2.1 Micro: Microbiology 09/27/24 18:38 Mucosa - Nose SARS-CoV-2, Influenza & RSV (PCR) - Final Physical Exam Const alert and no apparent distress Assessment & Plan Assessment/Plan (1) Adult failure to thrive: PLAN: PT OT Plan for short term SNF. Declined by TCU and [place]. Looking into [facility]. Walked 120 feet. Therapy seen and said that best place recommendation is could go home with help but help may be unavailable. PLAN: Plan Chronic conditions: CVA COPD/chronic respiratory failure: stable. on 3l/m pAFib: INR 2. continue warfarin prostate CA CSA HTN: continue losartan left vocal cord paralysis VTE prophylaxis: not indicated as pt already anticoagulated. Charges/Coding Visit Charges Inpatient E&M: 55869 Subs Hosp L1 Date medically ready for discharge: 10/01/24 Reason for DC delay: Precert pending from insurance
[2024-10-02 08:30] LABS: Anion Gap 8 (5-15); BUN 25 mg/dL (4-19); BUN/Creat Ratio 32.3 RATIO (10-20); Calcium,Total 9.2 mg/dL (7.6-11.0); Carbon Dioxide 30.9 mmol/L (21.0-32.0); Chloride 102 mmol/L (98-108); Estimated Creatinine Clearance 73.21 ml/min (50-250); Glucose 103 mg/dL (70-99); Potassium 3.8 mmol/L (3.3-5.1)
--- NOTE | 2024-10-02 11:14 | CASEMGMT ---
Social Work No updates yet from [facility] regarding precert. SW called son again, 2nd message left for him, asked him to call SW back. CARI Millan
--- NOTE | 2024-10-02 13:30 | CASEMGMT ---
Addendum entered by Kay Mcrae 10/02/24 13:50: Social Work SW wrote down for pt that he is going to [facility] once insurance gives the okay, today or tomorrow and gave it to pt. He was able to read it and stated, okay, gave the thumbs up. CARI Millan Original Note: Social Work Pt's cloth brushing and sueding supervisor Hui is here, inquiring about discharge plans. Padmaja Villanueva And Maryse went in to meet w/Hui. RACHELE Villanueva explained called son twice, he has not returned SW call. Hui states pt does not know what is going on. RACHELE again explained to pt, and Hui, plan is for pt to go to [facility] and we are waiting for precert. Pt having a difficult time hearing, Maryse reviewed the plan w/pt multiple times so he would understand. Hui asking if returning home w/[facility] would be an option. Padmaja reviewed therapy notes, explained to Hui that pt is still needing moderate assist of one person for ADLs and min assist for walking. RACHELE explained if pt continues to improve perhaps pt can go home, but this would be up to pt's son as he is next of kin. Hui states she can't help move pt due to shoulder injury. Hui called son for SW, SW spoke w/Gigi. RACHELE explained that [facility] did not have any beds, pt was accepted at [facility], and we are waiting for precert. Pt's son states understanding, agreeable w/plan. SW let son know once we get precert, SW will call him, if he does not answer, SW will leave him a message. Son states understanding. SW will continue to follow, plan continues to be for pt to go to [facility], skilled, waiting for precert. CARI Millan
[2024-10-02] MEDS: Warfarin (PBKC) 5 MG Tablet PO (17:59)
[2024-10-03] MEDS: hydrOXYzine PAM 25 MG Capsule PO (00:24)
[2024-10-03 05:01] VITALS: BP 113/55; PULSE 86; RESP 16; TEMP 36.3; O2SAT 95
[2024-10-03] MEDS: Budesonide Respules 0.5 MG/2 ML AMPUL.NEB. INHALATION ×2 (05:12→07:13)
[2024-10-03 05:17] LABS: Hematocrit 38.0 % (40-54); Hemoglobin 12.4 g/dL (13.0-16.5); Immature Granulocytes Count 0.050 X10^3/uL (0.0-0.0); Mean Corp Hgb Conc 32.6 g/dL (32-36); Mean Corpuscular Volume 94.1 fL (80-94); Mean Platelet Vol. 10.6 fl (6.2-12.0); NRBC Flagged by Analyzer 0 % (0-5); Platelet Count 157 K/mm3 (150-450); RBC Distribution Width CV 13.7 % (11.6-14.6); RBC Distribution Width SD 47.1 fl (35.1-43.9); Red Blood Count 4.04 M/mm3 (4.6-6.2); White Blood Count 8.0 K/mm3 (4.4-11.0)
[2024-10-03 05:33] LABS: Prothrombin Time (Protime)PT. 30.0 SECONDS (11.7-14.9)
[2024-10-03 05:45] LABS: Anion Gap 10 (5-15); BUN 24 mg/dL (4-19); BUN/Creat Ratio 30.6 RATIO (10-20); Calcium,Total 9.0 mg/dL (7.6-11.0); Carbon Dioxide 27.7 mmol/L (21.0-32.0); Chloride 102 mmol/L (98-108); Estimated Creatinine Clearance 73.21 ml/min (50-250); Glucose 102 mg/dL (70-99); Potassium 3.5 mmol/L (3.3-5.1)
[2024-10-03 05:51] VITALS: BMI 27.4
[2024-10-03 07:30] VITALS: PULSE 88; RESP 20
--- NOTE | 2024-10-03 07:50 | PCM.PN.HOSP ---
Reason for Visit Chief Complaint: Debility, weakness, need for placement consideration. Subjective Subjective No events overnight. Declined by insurance for SNF. Walking 80 feet. Objective Data Objective Data Vital Signs: Vital Signs Temp Pulse Resp BP Pulse Ox O2 Del Method O2 Flow Rate 36.3 C L 86 16 113/55 L 95 Nasal Cannula 3 10/03/24 05:01 10/03/24 05:01 10/03/24 05:01 10/03/24 05:01 10/03/24 05:01 10/03/24 05:01 10/03/24 05:01 Oxygen Flow Rate (L/min) 3 Oxygen Delivery Method Nasal Cannula Weight: 89.3 kg Body Mass Index (BMI) 27.4 Intake & Output: Intake and Output for Last 24 Hours 10/01/24 10/02/24 10/03/24 23:59 23:59 23:59 Intake Total 1550 / 1550 1550 / 1850 500 / 500 Output Total 550 / 550 850 / 850 Balance 1000 / 1000 700 / 1000 500 / 500 Lab / Micro Data 10/03/24 04:18 10/03/24 04:18 Labs: Laboratory Results - last 24 hr 10/02/24 06:46: Sodium 141, Potassium 3.8, Chloride 102, Carbon Dioxide 30.9, Anion Gap 8, BUN 25 H, Creatinine 0.78, Estim Creat Clear Calc 73.21, Est GFR (MDRD) Non-Af 88, BUN/Creatinine Ratio 32.3 H, Glucose 103 H, Calcium 9.2 10/03/24 04:18: WBC 8.0, RBC 4.04 L, Hgb 12.4 L, Hct 38.0 L, MCV 94.1 H, MCH 30.7, MCHC 32.6, RDW Std Deviation 47.1 H, RDW Coeff of Erica 13.7, Plt Count 157, MPV 10.6, Immature Gran % (Auto) 0.600, Neut % (Auto) 73.2 H, Lymph % (Auto) 14.2 L, [place] % (Auto) 7.3, Eos % (Auto) 4.3, Baso % (Auto) 0.4, Absolute Neuts (auto) 5.8, Absolute Lymphs (auto) 1.13, Nucleated RBC % 0, PT 30.0 H, INR 2.8, Sodium 140, Potassium 3.5, Chloride 102, Carbon Dioxide 27.7, Anion Gap 10, BUN 24 H, Creatinine 0.78, Estim Creat Clear Calc 73.21, Est GFR (MDRD) Non-Af 88, BUN/Creatinine Ratio 30.6 H, Glucose 102 H, Calcium 9.0 Micro: Microbiology 09/27/24 18:38 Mucosa - Nose SARS-CoV-2, Influenza & RSV (PCR) - Final Physical Exam Const alert and no apparent distress HEENT head/scalp atraumatic and moist oral mucous membranes Resp normal respiratory effort, no retractions, no use of accessory muscles and clear to auscultation bilaterally Cardio regular rate, regular rhythm, S1 normal heart sound and S2 normal heart sound GI normal to inspection, nondistended, normoactive bowel sounds, soft to palpation, non-tender and non-distended Extremity normal to inspection and full ROM Neuro Sensorium / Orientation: awake and alert Assessment & Plan Assessment/Plan (1) Adult failure to thrive: PLAN: PT OT Plan for short term SNF. Declined by TCU and [place]. Looking into [facility]. Walked 120 feet. DC home with C PLAN: Plan Chronic conditions: CVA COPD/chronic respiratory failure: stable. on 3l/m pAFib: INR 2. continue warfarin prostate CA CSA HTN: continue losartan left vocal cord paralysis VTE prophylaxis: not indicated as pt already anticoagulated. Date medically ready for discharge: 10/01/24 Reason for DC delay: Precert pending from insurance
--- NOTE | 2024-10-03 08:18 | CASEMGMT ---
Addendum entered by Ambika Bryson 10/03/24 14:46: Pt has decided to return home. [facility] asked to cancel referral. Ambika Bryson DC Planning Asst. Original Note: Per [facility] is offering a Peer to Peer. SW updated. Ambika Bryson DC Planning Asst.
[2024-10-03 09:33] VITALS: BP 120/58; PULSE 98; RESP 18; TEMP 36.5; O2SAT 100
[2024-10-03 09:37] VITALS: O2SAT 93
--- NOTE | 2024-10-03 12:30 | PCM.DC.SUM ---
Providers Date of Admission: 09/27/24 Primary Care Physician: Dr. Shayne Moncada MD Reason For Visit: ADULT FTT Diagnosis Discharge Diagnosis (1) Adult failure to thrive: Status: Acute Code(s): R62.7 - Adult failure to thrive Plan: PT OT Plan for short term SNF. Declined by TCU and [place]. Looking into [facility]. Walked 120 feet. DC home with [facility] Plan Chronic conditions: CVA COPD/chronic respiratory failure: stable. on 3l/m pAFib: INR 2. continue warfarin prostate CA CSA HTN: continue losartan left vocal cord paralysis VTE prophylaxis: not indicated as pt already anticoagulated. Medications at Discharge Home Medications levothyroxine 50 mcg tablet 50 mcg PO DAILY thyroid 07/25/19 atorvastatin 40 mg tablet 40 mg PO QHS cholesterol 07/28/19 spironolactone 25 mg tablet 25 mg PO DAILY diuretic 07/28/19 aspirin 81 mg chewable tablet 81 mg PO DAILY@0800 health 12/14/21 albuterol sulfate 90 mcg/actuation aerosol inhaler (Ventolin HFA) 2 puff inhalation Q4H PRN PRN Wheezing ##1 03/15/23 fluticasone 250 mcg-salmeterol 50 mcg/dose blistr powdr for inhalation 1 inh inhalation Q12H breathing 09/10/24 gabapentin 300 mg capsule 300 mg PO BID nerve pain 09/10/24 nitroglycerin 0.3 mg sublingual tablet 0.3 mg sublingual Q5M PRN chest pain 09/10/24 paroxetine HCl 40 mg tablet 40 mg PO DAILY mental health 09/10/24 atenolol 50 mg tablet 50 mg PO DAILY blood pressure #30 tabs 09/12/24 furosemide 40 mg tablet (Lasix) 40 mg PO BID diuretic #60 tabs 09/12/24 warfarin 2.5 mg tablet (Jantoven) 5 mg (2 x 2.5 mg) PO 1700 blood thinner #60 tabs 09/12/24 buspirone 10 mg tablet 10 mg PO BID 1 month #60 tabs 09/19/24 losartan 50 mg tablet 25 mg (1/2 x 50 mg) PO DAILY #30 tabs 09/19/24 lorazepam 0.5 mg tablet 0.5 mg PO TID PRN PRN anxiety 09/27/24 hydroxyzine pamoate 25 mg capsule 25 mg PO TID PRN PRN anxiety #0 caps 10/03/24 Hospital Course Operations None Procedures None Summary of Care Provided Hospital Course: 83-year-old male presents with weakness. Seen by therapy and he actually walked around 120 feet eventually just down to 80 but was declined by facilities and insurance. Patient will be discharged home where he apparently has 24-hour care there already. Patient be discharged home in stable condition. Weight / BMI Weight Weight: 89.3 kg Body Mass Index (BMI) 27.4 ABG / Lab / Microbiology Data 10/03/24 04:18 10/03/24 04:18 Laboratory: Laboratory Results - last 24 hr 10/03/24 04:18: WBC 8.0, RBC 4.04 L, Hgb 12.4 L, Hct 38.0 L, MCV 94.1 H, MCH 30.7, MCHC 32.6, RDW Std Deviation 47.1 H, RDW Coeff of Erica 13.7, Plt Count 157, MPV 10.6, Immature Gran % (Auto) 0.600, Neut % (Auto) 73.2 H, Lymph % (Auto) 14.2 L, [place] % (Auto) 7.3, Eos % (Auto) 4.3, Baso % (Auto) 0.4, Absolute Neuts (auto) 5.8, Absolute Lymphs (auto) 1.13, Nucleated RBC % 0, PT 30.0 H, INR 2.8, Sodium 140, Potassium 3.5, Chloride 102, Carbon Dioxide 27.7, Anion Gap 10, BUN 24 H, Creatinine 0.78, Estim Creat Clear Calc 73.21, Est GFR (MDRD) Non-Af 88, BUN/Creatinine Ratio 30.6 H, Glucose 102 H, Calcium 9.0 Microbiology: Microbiology 09/27/24 18:38 Mucosa - Nose SARS-CoV-2, Influenza & RSV (PCR) - Final D/C Instructions DC O2, CPAP, BIPAP Needs Home O2 Discharge instructions: No Meaningful Use Info Meaningful Use Meaningful Use Diagnoses (Choose all that apply): None applicable Discharge Plan Admission Admit Date/Time: 09/27/24 20:19 Primary Reason for Your Visit: debility Attending Provider: Lamberto Dinero Primary Care Provider: Shayne Moncada Consulting Providers: Olivia Walters; Mariana Kirby Instructions Patient Instructions: Dysphagia Diet- Managing Drinks Discharge Orders/Prescriptions Prescriptions: New hydroxyzine pamoate 25 mg Capsule 25 mg PO TID PRN PRN (Reason: anxiety) Qty: 0 0RF Continued levothyroxine 50 MCG tablet 50 mcg PO DAILY atorvastatin 40 MG tablet 40 mg PO QHS spironolactone 25 MG tablet 25 mg PO DAILY aspirin 81 MG tablet,chewable 81 mg PO DAILY@0800 albuterol sulfate [Ventolin HFA] 90 mcg/actuation HFA aerosol inhaler 2 puff inhalation Q4H PRN PRN (Reason: Wheezing) Qty: 1 0RF fluticasone propion-salmeterol 250-50 mcg/dose blister with device 1 inh inhalation Q12H nitroglycerin 0.3 mg tablet, sublingual 0.3 mg sublingual Q5M PRN (Reason: chest pain) gabapentin 300 mg capsule 300 mg PO BID paroxetine HCl 40 mg tablet 40 mg PO DAILY warfarin [Jantoven] 2.5 mg Tablet 5 mg PO 1700 Qty: 60 0RF atenolol 50 mg Tablet 50 mg PO DAILY Qty: 30 0RF furosemide [Lasix] 40 mg tablet 40 mg PO BID Qty: 60 0RF Patient Comments: lilli andrews states that pt is to take 20 mg in AM and 20 mg HS losartan 50 mg Tablet 25 mg PO DAILY Qty: 30 0RF buspirone 10 mg tablet 10 mg PO BID 30 Days Qty: 60 0RF lorazepam 0.5 mg tablet 0.5 mg PO TID PRN PRN (Reason: anxiety) Patient Comments: prescription just picked up today, has not taken it yet Referrals / Follow Up: Shayne Moncada MD [Primary Care Provider] - Within 2 Weeks Disposition Disposition (needs filled in before D/C Order can be placed): Home Health Service Charges/Coding Visit Charges Inpatient E&M: 53998 Disch Hosp
--- NOTE | 2024-10-03 12:50 | CASEMGMT ---
Addendum entered by Diamond Jacobsen 10/03/24 15:20: Social Work [facility] is able to accept pt for SN/PT/OT/SW/PROTOTYPE MACHINE OPERATOR with start of care on 10/05. Pt notified pt caregiver Hui who will provide transportation home. ANJUM Alfaro Addendum entered by Diamond Jacobsen 10/03/24 14:30: Social Work [facility] is unable to accept. Referral sent to next choice [facility]. SW will await return call with determination of acceptance. ANJUM Alfaro Original Note: Social Work Insurance has issues a Peer to Peer for pt. Therapy notes reviewed and RACHELE notified physician. Peer to Peer will not be completed at this time. Pt is functioning well enough to return home with home health therapy and 24 hour caregiver. RACHELE met with pt and informed and pt is agreeable to return home. Phone call to pt caregiver Hui Ray and updated on the above. Therapy notes reviewed with Hui who confirms she is able to care for pt at home and provides 24 hour care. A list of [facility] providers including quality and resource use data and consistent with the patient?s preferred geographic region, medical needs, and insurance network were provided from the [employer] Guide and reviewed with Hui. Preferred provider is [facility]. Hui also inquiring about getting paid to be pt's caregiver. RACHELE discussed [facility] programs with Hui and Hui is agreeable to referral and will follow up with them regarding being a paid caregiver. Referral made to [facility]. RACHELE will continue to follow for dc planning. ANJUM Alfaro
--- NOTE | 2024-10-03 13:21 | CASEMGMT ---
Social Work Referral has been submitted to [facility] as requested by the caregiver NATO Wharton
[2024-10-03 14:19] VITALS: BP 107/71; PULSE 84; RESP 18; TEMP 36.9; O2SAT 95
--- NOTE | 2024-10-03 14:33 | CHAPLAIN ---
Type of Pastoral Visit ___ Initial Visit _x__ Follow-up Visit ___ On-call Visit ___ General Patient Visit ___ Spiritual Assessment ___ Family Conference ___ Bereavement ___ Rapid Response ___ Code Blue ___ Other (describe below) Pastoral Care Referral From ___ Patient ___ Family ___ Nurse ___ Physician ___ Customer Pricing Manager ___ Blender Machine Operator ___ Other (describe below) Sacrament/Intervention ___ Active listening ___ Anointing ___ Lutheran ___ Bereavement ___ Communion ___ Vicky exploration ___ ___ Life review _x__ Prayer ___ Reconciliation ___ Sacrament of Sick _x__ Supportive presence ___ Wedding ___ Other (describe below) Pastoral Comments patient is calling out in his room to hallway; entered room of pt and he is visably upset and speaks of his rehab being denied by insurance; pt is asking for help to call a friend or a son on his phone; could not discover how to use his personal phone; went to ask for help at nurses desk and found that SW was already working on the details and family member had been notified; returned to let pt know about the prospect.
--- NOTE | 2024-10-03 15:17 | CASEMGMT ---
Social Work SW called the son regarding the discharge plan with his father. RACHELE left a message for him to call the SW. NATO Bhardwaj
== END 2024-10-03 16:31 | disposition home health service (06) ==
LOC: ED 20:24 → MS3 21:28
PROVIDERS: Student in an Organized Health Care Education/Training Program; Admitting Provider Family Medicine; Emergency Provider Student in an Organized Health Care Education/Training Program; PCP Family Medicine
DX: R53.1 Weakness (principal); J96.11 Chronic respiratory failure with hypoxia; I13.0 Hypertensive heart and chronic kidney disease with heart failure and stage 1 through stage 4 chronic kidney disease, or unspecified chronic kidney disease; I50.42 Chronic combined systolic (congestive) and diastolic (congestive) heart failure; J44.9 Chronic obstructive pulmonary disease, unspecified; I48.0 Paroxysmal atrial fibrillation; G62.9 Polyneuropathy, unspecified; Z79.899 Other long term (current) drug therapy; R62.7 Adult failure to thrive; F41.0 Panic disorder [episodic paroxysmal anxiety]; I95.9 Hypotension, unspecified; Z87.891 Personal history of nicotine dependence; Z79.01 Long term (current) use of anticoagulants; E78.5 Hyperlipidemia, unspecified; R53.81 Other malaise; I69.391 Dysphagia following cerebral infarction; I25.10 Atherosclerotic heart disease of native coronary artery without angina pectoris; E03.9 Hypothyroidism, unspecified; Z99.81 Dependence on supplemental oxygen; G47.31 Primary central sleep apnea; Z79.82 Long term (current) use of aspirin; Z79.51 Long term (current) use of inhaled steroids; N18.2 Chronic kidney disease, stage 2 (mild); F32.A Depression, unspecified; J38.01 Paralysis of vocal cords and larynx, unilateral
CPT/HCPCS: 36415; 71046; 80048; 80053; 83735; 84145; 84484; 85025; 85610; 87631; 92526; 92610; 93005; 94640; 94668; 97116; 97162; 97165; 97530; 97535; 97802; 99221; 99285; A4216; G0378

== ENCOUNTER → 2024-10-10 | Outpatient (CLI) | payer MEDICARE, SELFPAY ==
[2024-10-10 21:37] LABS: Color, Urine Brown (Yellow); Glucose, Dipstick Normal (Normal); Ketone-Dipstick Negative (Negative); Leukocyte Esterase-Dipstick 100 /ul (Negative); Nitrite-Dipstick Negative (Negative); Occult Blood-Urine 250 /ul (Negative); Protein-Dipstick 500 mg/dl (Negative); Specific Gravity, Urine 1.020 (1.002-1.030); Urine Bilirubin Dipstick Negative (Negative)
== END | disposition home or self-care (01) ==
LOC: LABSPEC 15:38
PROVIDERS: PCP Family Medicine; Visit Provider Family Medicine
DX: I69.391 Dysphagia following cerebral infarction (principal)
CPT/HCPCS: 81002